=== PATIENT | female | born 1955 | race Caucasian/White ===

== ENCOUNTER 2017-01-10 11:16 | Inpatient (IN) | payer MEDICARE, SELFPAY ==
[2017-01-10] VITALS (12 sets, daily range): BP systolic 146–197; BP diastolic 69–102; PULSE 83–107; RESP 14–25; TEMP 36.9–37; O2SAT 92–97; BMI 43.5; BMI 43.6; BMI 42.3
--- NOTE | 2017-01-10 11:31 | RAD_ITS ---
STUDY: X-RAY CHEST REASON FOR EXAM: Female, 61 years old. Cough. Shortness of breath and dyspnea. TECHNIQUE: PA and lateral views of the chest. COMPARISON: Comparison is made with prior study dated November 11, 2016. FINDINGS: EKG electrodes are seen. The lungs are clear and expanded. There is no demonstrated pleural abnormality. Normal size heart. Normal mediastinum and judith. Normal visualized pulmonary arteries. There is atherosclerotic calcification of the aortic arch with tortuosity. There is demineralization of the osseous structures. Normal visualized ribs, clavicles, and shoulders. There is no demonstrated abnormality of the visualized soft tissue structures of the upper abdomen. RAD/Chest PA and Lateral IMPRESSION: No acute abnormality is seen. Electronically Signed: Tristan De La Garza MD at 12:56 EDT Tel [phone], Service support ,
--- NOTE | 2017-01-10 11:32 | EKG12_ITS ---
Test Reason : Blood Pressure : / mmHG Vent. Rate : 107 BPM Atrial Rate : 107 BPM P-R Int : 184 ms QRS Dur : 080 ms QT Int : 352 ms P-R-T Axes : 029 -25 018 degrees QTc Int : 469 ms Sinus tachycardia Otherwise normal ECG Confirmed by SAMIRA HASSAN ([id number]), supervising editor trailer MAIKEL MULLEN ([id number]) on 01/15/2017 2:18:04 PM Referred By: RADHA Confirmed By:SAMIRA HASSAN
[2017-01-10] MEDS: Ipratropium/Albuterol Sulfate 3 ML AMPUL.NEB INHALATION ×2 (11:43→19:34)
[2017-01-10] MEDS: Metoclopramide 10 MG/2 ML Vial IV (12:11)
[2017-01-10 12:22] LABS: Absolute Lymphocyte Count 2.13 X10^3/ul (0.83-4.51); Absolute Neutrophil Count 15.5 X10^3/uL (2.0-7.7); Basophil# 0.04 X10^3/uL; Basophil% 0.2 % (0-1); Eosinophil# 0.25 X10^3/uL; Eosinophils% 1.3 % (0-5); Hemoglobin 10.3 g/dl (12.0-15.0); Lymphocyte # 2.13 X10^3/ul (4.0); Lymphocyte % 10.9 % (19-41); Mean Corp Hgb Conc 30.3 g/gl (32-36); Mean Corpuscular Hgb 22.6 pg (27.0-32.0); Mean Corpuscular Volume 74.6 fL (81-99); Mean Platelet Vol. 9.3 fl (6.2-12.0); Monocyte# 1.49 X10^3/uL; Monocyte% 7.7 % (0-10); Neutrophil # 15.51 X10^3/uL (2.7-7.7); Neutrophil % 79.6 % (47-70); Platelet Count 384 K/mm3 (150-450); RBC Distribution Width CV 17.3 % (11.6-14.6); RBC Distribution Width SD 46.8 fl (35.1-43.9); Red Blood Count 4.56 M/mm3 (4.2-5.4); White Blood Count 19.5 K/mm3 (4.4-11.0)
[2017-01-10 12:24] LABS: Differential Indicated SCAN CRITERIA MET; POSITIVE COUNT NO; POSITIVE DIFFERENTIAL NO; POSITIVE MORPHOLOGY YES
[2017-01-10 12:24] LABS: Red Blood Cells-Urine 0 SEEN /hpf (0-5)
[2017-01-10 12:32] LABS: Color, Urine Yellow (Yellow); Glucose, Dipstick Normal (Normal); Ketone-Dipstick Negative (Negative); Leukocyte Esterase-Dipstick 100 /ul (Negative); Nitrite-Dipstick Negative (Negative); Occult Blood-Urine 10 /ul (Negative); Protein-Dipstick 15 mg/dl (Negative); Urine Bilirubin Dipstick Negative (Negative); Urine Clarity Sl. Cloudy (Clear); Urine Urobilinogen Normal (Normal)
[2017-01-10 12:38] LABS: ALB/GLOB Ratio 0.8 RATIO (0.9-2.4); AST(SGOT) 23 U/L (15-37); Alanine Aminotransfer ALT/SGPT 28 U/L (12-78); Albumin, Serum 3.3 g/dL (3.4-5.0); Alkaline Phosphatase 198 U/L (45-117); Anion Gap 7 (5-15); BUN 10 mg/dL (7-18); BUN/Creat Ratio 9.5 RATIO (10-20); Calcium,Total 9.1 mg/dL (8.5-10.1); Chloride 101 mmol/L (98-107); Creatinine, Serum 1.05 mg/dL (0.55-1.02); EST Glomerular Filtration Rate 56 mL/min (>60); Est Glom Filt Rate - Afr Amer 68 mL/min (>60); Estimated Creatinine Clearance 52.01 ml/min; Globulin 4.1 g/dL (2.3-3.5); Glucose 219 mg/dL (70-110); Lipase 91 U/L (73-393); Potassium 4.1 mmol/L (3.5-5.1); Protein, Total 7.4 g/dL (6.4-8.2); Sodium Level 138 mmol/L (136-145)
[2017-01-10 12:44] LABS: Lactic Acid 2.1 mmol/L (0.4-2.0)
[2017-01-10 12:49] LABS: Bacteria 2+ /hpf (None Seen); Mucous, Urine RARE /hpf (<or=2+); Squamous Epithelial Cells - UA 0-5 SEEN /hpf (5-10); White Blood Cells 0-5 SEEN /hpf (0-5)
[2017-01-10 12:57] LABS: Hypochromasia 1+; Microcytosis 2+
--- NOTE | 2017-01-10 13:33 | CT_ITS ---
STUDY: CT ABDOMEN AND PELVIS WITHOUT CONTRAST REASON FOR EXAM: Female, 61 years old. Abdominal pain. Nausea and vomiting. RADIATION DOSAGE (If Supplied By Facility): CTDIvol = ( 24.18 ) mGy, DLP = ( 1274.56 ) mGycm TECHNIQUE: Transaxial images were obtained from the dome of the diaphragm to the symphysis pubis without oral contrast, and without intravenous contrast. Sagittal and coronal images were reconstructed. Individualized dose optimization techniques were used for this CT. COMPARISON: Comparison is made with prior study dated November 13, 2015. FINDINGS: The visualized lung bases are unremarkable. Coronary artery calcification. There is decreased attenuation of the liver consistent with steatosis. The gallbladder is not visualized most likely secondary to prior cholecystectomy. Normal spleen. Normal pancreas. Normal bilateral adrenal glands. Normal right kidney. Normal left kidney. Normal visualized stomach. Normal small intestine. Mild degree of circumferential wall thickening with increased markings in the descending colon just proximal to the rectosigmoid colon. This may represent localized colitis. There is non-visualization of the appendix. Normal abdominal aorta. Normal inferior vena cava. Normal retroperitoneum. Normal urinary bladder. Normal abdominal wall. There are degenerative changes of the visualized lumbar spine. CT/Abdomen/Pelvis without Cont IMPRESSION: Mild degree of circumferential wall thickening and increased markings in the surrounding peritoneal fat involving the distal descending colon and proximal rectosigmoid colon. Scattered sigmoid diverticula are also seen. Electronically Signed: Tristan De La Garza MD at 14:40 EDT Tel [phone], Service support ,
[2017-01-10] MEDS: Ondansetron 4 MG/2 ML Vial IV (14:01)
--- NOTE | 2017-01-10 15:45 | HP.PCM_ITS ---
Problem List (1) Benign essential HTN Status: Chronic (2) CVA (cerebral vascular accident) Status: Chronic Qualifiers: CVA mechanism: unspecified Qualified Code(s): I63.9 - Cerebral infarction, unspecified (3) DM2 (diabetes mellitus, type 2) Status: Chronic Qualifiers: Diabetes mellitus complication status: with kidney complications Diabetes mellitus complication detail: with microalbuminuria Diabetes mellitus intermediate project manager insulin use: with fci use Qualified Code(s): E11.29 - Type 2 diabetes mellitus with other diabetic kidney complication; R80.9 - Proteinuria, unspecified; Z79.4 - FCI (current) use of insulin (4) Diabetes mellitus Status: Chronic Qualifiers: Diabetes mellitus type: type 2 Diabetes mellitus complication detail: with polyneuropathy Qualified Code(s): E11.42 - Type 2 diabetes mellitus with diabetic polyneuropathy (5) FCHL (familial combined hyperlipidemia) Status: Chronic (6) HLD (hyperlipidemia) Status: Chronic Qualifiers: Hyperlipidemia type: unspecified Qualified Code(s): E78.5 - Hyperlipidemia , unspecified (7) Migraine headache Status: Chronic Qualifiers: Migraine type: with aura Status migrainosus presence: without status migrainosus Intractability: not intractable Qualified Code(s): G43.109 - Migraine with aura, not intractable, without status migrainosus (8) Pulmonary embolism Status: Chronic Qualifiers: Chronicity: unspecified Acute cor pulmonale presence: without acute cor pulmonale (9) Restless leg Status: Chronic (10) Morbid obesity with BMI of 40.0-44.9, adult Status: Chronic (11) Depression Status: Chronic Qualifiers: Depression Type: unspecified Qualified Code(s): F32.9 - Major depressive disorder, single episode, unspecified History of Present Illness Date of Admission: 01/10/17 Chief Complaint: Abdominal cramping, pain, N/V The patient is a 61 y/o w/ PMHx: HTN, HLD, Morbid obesity, Migraines, RLS, Diabetes mellitus type II, History of cyclical N/V, Takotsubo's Cardiomyopathy who presents to the [facility] ED on 01/10/17 w/ ongoing abdominal discomfort with cramping abdominal pain in addition to nausea and emesis with inability to maintain appropriate p.o. intake ?48 hours in addition to mild cough, nonproductive with subjective chills, no fever with recent ill contacts with similar presentation. Emergency room patient is afebrile, heart rate 80-90, BP 160-170 over 70s, respiratory rate 18, 97% on room air, with WBC 19.5, hemoglobin 10.3, platelet 384 with left shift, CMP with BUN/Creat 10/1.05, glucose 219, LA 2.1, Alk phos 198, UA unremarkable, CXR with chronic changes, CT A/P w/ mild degree circumferential wall thickening and increased markings in the surrounding peritoneal fat involving the distal descending colon and proximal rectosigmoid colon with scattered sigmoid diverticula seen. The emergency room patient was administered normal saline, Zosyn, Reglan and albuterol ?1. Past Medical History Past Medical History (Chronic Problems): Chronic Problems Depression (Chronic) Morbid obesity with BMI of 40.0-44.9, adult (Chronic) Benign essential HTN (Chronic) CVA (cerebral vascular accident) (Chronic) DM2 (diabetes mellitus, type 2) (Chronic) Diabetes mellitus (Chronic) FCHL (familial combined hyperlipidemia) (Chronic) HLD (hyperlipidemia) (Chronic) Migraine headache (Chronic) Pulmonary embolism (Chronic) Restless leg (Chronic) Allergies ciprofloxacin [From Cipro] Allergy (Verified 07/29/16 13:59) Shortness of breath ciprofloxacin HCl [From Cipro] Allergy (Verified 07/29/16 13:59) Shortness of breath cyclobenzaprine HCl [From Flexeril] Allergy (Verified 07/29/16 13:59) Rash ketorolac tromethamine [From Toradol] Allergy (Verified 07/29/16 13:59) Chest tightness sulfamethoxazole [From Bactrim] Allergy (Verified 07/29/16 13:59) Itching trimethoprim [From Bactrim] Allergy (Verified 07/29/16 13:59) Itching valacyclovir HCl [From Valtrex] Adverse Reaction (Verified 07/29/16 13:59) Other Home Medications: Ambulatory Orders Medication Instructions Recorded Allopurinol [Zyloprim] 100 mg PO DAILYCM 05/07/16 Aspirin [Aspirin, Baby] 81 mg PO DAILY 05/07/16 Hydrocodone Bitart/Apap 5-325 1 tablet PO 4X/DAY PRN 05/07/16 [[place] 5MG-325MG] Lamotrigine 100 mg PO BID 05/07/16 Montelukast [Singulair] 10 mg PO DAILY 05/07/16 MorphINE [MS Contin] 15 mg PO BID 05/07/16 Olmesartan Medoxomil [Benicar] 20 mg PO DAILY 05/07/16 Omeprazole [Prilosec] 40 mg PO DAILY 05/07/16 Pregabalin [Lyrica] 150 mg PO BID 05/07/16 Rivaroxaban [Xarelto] 20 mg PO DAILY 05/07/16 Ropinirole HCl [Requip] 1 mg PO QHS 05/07/16 Simvastatin [Zocor] 40 mg PO QHS 05/07/16 Albuterol Inhaler [Ventolin Hfa] 1 - 2 puff INHALATION Q4H PRN PRN 05/14/16 #1 inhaler Ondansetron [Zofran Odt] 4 mg PO Q8H PRN PRN #10 tablet 05/17/16 Benzonatate [Tessalon Perle] 200 mg PO TID PRN PRN #20 capsule 07/29/16 ProMETHAzine [Phenergan] 25 mg PO Q6H PRN PRN #10 tablet 07/29/16 Metoclopramide [Reglan] 10 mg PO TID 11/11/16 Insulin Degludec [Tresiba 120 units SQ DAILY 01/10/17 Flextouch U-200] Insulin Lispro [Humalog Kwikpen] 30 - 40 unit SQ ACHS 01/10/17 Surgical History: appendectomy, cholecystectomy Psychiatric History: Depression PARTNERSHIP MANAGER History: No pertinent PARTNERSHIP MANAGER history Lives: Alone Smoking Status: Never smoker Tobacco Use: Non-smoker Alcohol: None Drugs: None - *Family History Paternal History Items: Heart Disease Maternal History Items: COPD, Diabetes, No pertinent history Review of Systems Constitutional: Reports: Anorexia, Chills, Malaise, Weakness, Fatigue. Denies: Fever, Weight Change HEENT: Reports: Sore Throat. Denies: Head Aches, Sinus Congestion, Sinus Drainage Cardiovascular: Denies: Chest Pain, Palpitations Respiratory: Reports: Cough. Denies: Shortness of breath at rest, Sputum production Gastrointestinal: Reports: Abdominal Pain, Nausea, Vomiting Genitourinary: Denies: Dysuria Musculoskeletal: Denies: Joint Pain, Joint Tenderness Skin: Denies: Rash, Wounds Neurological: Denies: Numbness, Tingling, Focal weakness Psychiatric: Denies: Anxiety, Depression, Homicidal Ideations, Suicidal Ideations Hematologic/ Lymphatic: Denies: Easy Bruising, Easy Bleeding VTE Information - Inpt Only VTE Present on Admission: No VTE Mechan Device Prophylaxis: SCD's VTE Pharm Prophylaxis ordered?: No Reason prophylaxis not ordered:: Treatment Not Indicated Subjective: Seated upright in the ED bed, fatigued, NAD. Objective: Physical Examination: General: awake, alert, oriented x 3 and cooperative, seated upright in ED bed in no apparent distress. Skin: normal color, turgor, no icterus, cyanosis. HEENT: AT/NC, EOMI, PERRLA, alfreda MM, no carotid bruits or JVD noted. Lungs: CTA bilaterally, moderate effort, moderate decrease BL bases, no rales, ronchi or wheezing. Heart: Regular rate and rhythm; no gallop, rub audible. Abdomen: soft, morbidly obese, notes mild generalized TTP with deep palpation, ND, mildly hyperactive BS, no HSM but habitus makes examination difficult. Extremities: no cyanosis, clubbing, or edema. Neurological: patient awake, alert, oriented x 3; cognitive function intact; pupils equally reactive to light and accomodation; cranial nerves II-XII grossly normal, moving all 4 extremities, no focal deficits, strength moderately globally decreased. Psychiatric: affect appears fatigued, no acute evidence of depressive or anxiety feelings. - Physical Exam Vital Signs Temp Pulse Resp BP Pulse Ox 98.5 F 99 20 181/81 92 01/10/17 11:18 01/10/17 14:05 01/10/17 14:05 01/10/17 14:05 01/10/17 14:05 Oxygen Delivery Method Room Air Weight: 270 lb Body Mass Index (BMI) 43.5 Laboratory Tests Past 24 Hrs 01/10/17 01/10/17 01/10/17 12:02 12:02 12:02 WBC 19.5 H RBC 4.56 Hgb 10.3 L Hct 34.0 L MCV 74.6 L MCH 22.6 L MCHC 30.3 L RDW 17.3 H RDW Differential 46.8 H Plt Count 384 MPV 9.3 Immature Gran % (Auto) 0.300 Neut % (Auto) 79.6 H Lymph % (Auto) 10.9 L [place] % (Auto) 7.7 Eos % (Auto) 1.3 Baso % (Auto) 0.2 Absolute Neuts (auto) 15.5 H Absolute Lymphs (auto) 2.13 Total Counted Not Reportable Hypochromasia 1+ Microcytosis 2+ Sodium 138 Potassium 4.1 Chloride 101 Carbon Dioxide 30.0 Anion Gap 7 BUN 10 Creatinine 1.05 H Estim Creat Clear Calc 52.01 Est GFR (MDRD) Af Amer 68 Est GFR (MDRD) Non-Af 56 L BUN/Creatinine Ratio 9.5 L Glucose 219 H Lactic Acid 2.1 H Calcium 9.1 Total Bilirubin 1.00 AST 23 ALT 28 Alkaline Phosphatase 198 H Troponin I < 0.02 Total Protein 7.4 Albumin 3.3 L Globulin 4.1 H Albumin/Globulin Ratio 0.8 L Lipase 91 Urine Color Urine Clarity Urine pH Ur Specific Malcolm Urine Protein Urine Glucose (UA) Urine Ketones Urine Occult Blood Urine Nitrite Urine Bilirubin Urine Urobilinogen Ur Leukocyte Esterase Urine RBC Urine WBC Ur Squamous Epith Cells Urine Bacteria Urine Mucus 01/10/17 12:20 WBC RBC Hgb Hct MCV MCH MCHC RDW RDW Differential Plt Count MPV Immature Gran % (Auto) Neut % (Auto) Lymph % (Auto) [place] % (Auto) Eos % (Auto) Baso % (Auto) Absolute Neuts (auto) Absolute Lymphs (auto) Total Counted Hypochromasia Microcytosis Sodium Potassium Chloride Carbon Dioxide Anion Gap BUN Creatinine Estim Creat Clear Calc Est GFR (MDRD) Af Amer Est GFR (MDRD) Non-Af BUN/Creatinine Ratio Glucose Lactic Acid Calcium Total Bilirubin AST ALT Alkaline Phosphatase Troponin I Total Protein Albumin Globulin Albumin/Globulin Ratio Lipase Urine Color Yellow Urine Clarity Sl. Cloudy Urine pH 6.0 Ur Specific Malcolm 1.010 Urine Protein 15 H Urine Glucose (UA) Normal Urine Ketones Negative Urine Occult Blood 10 H Urine Nitrite Negative Urine Bilirubin Negative Urine Urobilinogen Normal Ur Leukocyte Esterase 100 H Urine RBC 0 SEEN Urine WBC 0-5 SEEN Ur Squamous Epith Cells 0-5 SEEN Urine Bacteria 2+ Urine Mucus RARE Assessment/Plan The patient is a 61 y/o w/ PMHx: HTN, HLD, Morbid obesity, Migraines, RLS, Diabetes mellitus type II, History of cyclical N/V, Takotsubo's Cardiomyopathy who presents to the [facility] ED on 01/10/17 w/ ongoing abdominal discomfort with cramping abdominal pain in addition to nausea and emesis with inability to maintain appropriate p.o. intake ?48 hours in addition to mild cough, nonproductive with subjective chills, no fever with recent ill contacts with similar presentation. (1) Acute Colitis, N/V/Viral SXS: CT A/P w/ evidence of colitis. Admission CBC w / WBC 19.5 w/ L shift, afebrile in the ED, LA 2.1. Will admit to [facility], maintain on hydration, monitor I&Os, maintain NPO status w/ bowel rest, treat with zosyn regimen, IV protonix, anti-emetics, pain regimen PRN. Consider diet advancement to clears in AM if clinically improved. Respiratory panel pending. Duonebs, Albuterol PRN, HOB, IS. (3) Takotsubo's Cardiomyopathy: Continue on home regimen xarelto, losartan, previously was on coreg, currently no listed on home regimen. (4) PAF: Maintained on amiodarone, coreg dose which she was on prior not listed in current regimen. (5) Diabetes mellitus type II: Continue home insulin regimen, NPO status, q 6h accu checks w/ ISS. (6) Hypertension: Continue home regimen losartan, PRN hydralazine. (7) Hyperlipidemia: Continue statin regimen. (9) Morbid Obesity: Weight loss and lifestyle changes encouraged. (10) Chronic pain syndrome: Continue home elavil, morphine regimen. (11) DVT Prophylaxis: SCDs, xarelto.
--- NOTE | 2017-01-10 17:11 | EDS_ITS ---
DATE OF SERVICE: 01/10/2017 CHIEF COMPLAINT: Nausea and vomiting. HISTORY OF CHIEF COMPLAINT: A 61-year-old female with nausea and vomiting. Symptoms started yesterday. Also started coughing yesterday. She denies any fever. Denies any diarrhea. Denies any blood in her stool or black tarry stool. PAST MEDICAL HISTORY: Significant for prior PR, GERD, diabetes, hypertension, high cholesterol. SURGICAL HISTORY: Includes cholecystectomy and left knee surgery. PRIMARY CARE PHYSICIAN: Devan Parks M.D. ALLERGIES: CIPRO. SOCIAL HISTORY: She does not smoke or drink alcohol. Denies any illicit drug use. PHYSICAL EXAMINATION: VITAL SIGNS: Blood pressure 184/41, temperature 98.7, heart rate 107, respirations 25, pulse ox 94. GENERAL APPEARANCE: She is awake, alert, in no acute distress. Nontoxic appearing. HEENT: She is normocephalic, atraumatic. Pupils equal, react to light. TMs are clear. NECK: Supple. Mucous membranes slightly dry. CARDIOVASCULAR: Heart is regular, slightly tachycardic. No murmurs. LUNGS: Clear. ABDOMEN: Soft. She has got some mild diffuse tenderness. There is no rebound, rigidity or peritoneal signs. No masses palpated. EXTREMITIES: Intact x4. Muscle strength +5/5. Exam otherwise unremarkable. EMERGENCY DEPARTMENT COURSE: An IV line was established. EKG obtained showed a sinus rhythm with a rate of 107. CBC with diff showed an elevated white count of 19,000, hemoglobin 10, hematocrit 34, platelets 384. Chemistries unremarkable. Alkaline phosphatase was normal. LFTs normal. Lipase normal. Troponin less than 0.02. Lactate was minimally elevated at 2.1. CT scan without contrast of the abdomen and pelvis showed some inflammatory changes in the left side of the colon into the sigmoid colon, question of colitis. The patient was started on Zosyn IV. She was given Reglan and Zofran. The patient will be admitted. We will discuss with hospitalist. DIAGNOSES: Abdominal pain, colitis, dehydration. DISPOSITION: The patient admitted in stable condition. Robe Root DO T: ANDREW JOB: [id number]
[2017-01-10] MEDS: BENZOCAINE/MENTHOL 1 LOZENGE MUCOUS MEM (18:40)
[2017-01-10 18:55] LABS: Lactic Acid 2.8 mmol/L (0.4-2.0)
[2017-01-10 20:05] LABS: Bedside Glucose 260 mg/dL (70-110)
[2017-01-10] MEDS: 0.9% Normal Saline 1,000 ML 999 ML IV (20:40)
[2017-01-10] MEDS: 0.9% Normal Saline 1,000 ML 125 ML IV (21:54)
[2017-01-10] MEDS: lamoTRIgine 100 MG Tablet PO (21:55)
[2017-01-10] MEDS: Atorvastatin Calcium 20 MG Tablet PO (21:56)
[2017-01-10] MEDS: Pregabalin 75 MG Capsule 150 MG PO (21:56)
[2017-01-10] MEDS: Pramipexole Di-HCl 0.5 MG Tablet PO (21:57)
[2017-01-10] MEDS: Metoclopramide 10 MG/2 ML Vial 5 MG IV (21:58)
[2017-01-10 23:15] LABS: Lactic Acid 2.6 mmol/L (0.4-2.0)
[2017-01-11] VITALS (12 sets, daily range): BP systolic 122–169; BP diastolic 61–83; PULSE 68–98; RESP 16–20; TEMP 36.5–37.6; O2SAT 92–98
[2017-01-11 00:14] LABS: Bedside Glucose 293 mg/dL (70-110)
[2017-01-11] MEDS: Albuterol 2.5 MG/3 ML VIAL.NEB. INHALATION ×2 (03:54→13:28)
[2017-01-11] MEDS: guaiFENesin Dm 10 ML UDC 5 ML PO ×3 (05:42→22:35)
[2017-01-11] MEDS: oxyCODONE 5 MG Tablet PO (05:42)
[2017-01-11] MEDS: 0.9% Normal Saline 1,000 ML 125 ML IV ×2 (05:42→13:00)
[2017-01-11] MEDS: Metoclopramide 10 MG/2 ML Vial 5 MG IV ×3 (05:45→22:35)
[2017-01-11 05:55] LABS: Bedside Glucose 225 mg/dL (70-110)
[2017-01-11] MEDS: Ipratropium/Albuterol Sulfate 3 ML AMPUL.NEB INHALATION ×2 (07:36→19:16)
[2017-01-11 07:50] LABS: Absolute Lymphocyte Count 1.61 X10^3/ul (0.83-4.51); Absolute Neutrophil Count 12.7 X10^3/uL (2.0-7.7); Basophil# 0.02 X10^3/uL; Basophil% 0.1 % (0-1); Eosinophil# 0.11 X10^3/uL; Eosinophils% 0.7 % (0-5); Hematocrit 27.8 % (37-47); Hemoglobin 8.7 g/dl (12.0-15.0); Lymphocyte # 1.61 X10^3/ul (4.0); Lymphocyte % 10.1 % (19-41); Mean Corp Hgb Conc 31.3 g/gl (32-36); Mean Corpuscular Hgb 23.2 pg (27.0-32.0); Mean Corpuscular Volume 74.1 fL (81-99); Mean Platelet Vol. 9.6 fl (6.2-12.0); Monocyte# 1.47 X10^3/uL; Monocyte% 9.2 % (0-10); Neutrophil # 12.66 X10^3/uL (2.7-7.7); Neutrophil % 79.5 % (47-70); Platelet Count 340 K/mm3 (150-450); RBC Distribution Width CV 17.8 % (11.6-14.6); RBC Distribution Width SD 46.2 fl (35.1-43.9); Red Blood Count 3.75 M/mm3 (4.2-5.4); White Blood Count 15.9 K/mm3 (4.4-11.0)
[2017-01-11 07:51] LABS: POSITIVE COUNT NO; POSITIVE DIFFERENTIAL NO; POSITIVE MORPHOLOGY NO
[2017-01-11 08:05] LABS: Anion Gap 9 (5-15); BUN 10 mg/dL (7-18); Calcium,Total 8.2 mg/dL (8.5-10.1); Chloride 102 mmol/L (98-107); EST Glomerular Filtration Rate 60 mL/min (>60); Est Glom Filt Rate - Afr Amer 72 mL/min (>60); Estimated Creatinine Clearance 54.61 ml/min; Glucose 182 mg/dL (70-110); Potassium 4.1 mmol/L (3.5-5.1); Sodium Level 138 mmol/L (136-145)
[2017-01-11 08:07] LABS: Lactic Acid 1.4 mmol/L (0.4-2.0)
[2017-01-11] MEDS: Allopurinol 100 MG Tablet PO (08:25)
[2017-01-11] MEDS: Pregabalin 75 MG Capsule 150 MG PO ×2 (10:50→22:34)
[2017-01-11] MEDS: lamoTRIgine 100 MG Tablet PO ×2 (10:50→22:34)
[2017-01-11] MEDS: Losartan Potassium 50 MG Tablet PO (10:50)
[2017-01-11] MEDS: Rivaroxaban 20 MG Tablet PO (10:51)
[2017-01-11] MEDS: Acetaminophen 325 MG Tablet 650 MG PO ×2 (10:51→22:42)
--- NOTE | 2017-01-11 10:54 | CASEMGMT ---
weight trainer completed. Discharge Plan: Home with no anticipated needs. Emerald Edwards, RN, BSN, CM
[2017-01-11 11:56] LABS: Bedside Glucose 188 mg/dL (70-110)
[2017-01-11] MEDS: 0.9% NaCl Peripheral Flush Adult/Peds IV (14:02)
--- NOTE | 2017-01-11 16:11 | PN_ITS ---
Subjective: This is a 61-year-old female who was admitted for evaluation of abdominal pain associated with nausea, vomiting, poor p.o. intake, dehydration. CT scan of the abdomen showed mild degree circumferential wall thickening and increased markings the surrounding peritoneal fat involving the distal descending colon and proximal rectosigmoid colon with scattered sigmoid diverticula. Initial lactic acid was 2.8, then 2.6, normalized to 1.4 in 12 hours. Patient was started on Zosyn. Objective: Alert and oriented x3 Comfortable. No distress. Skin is warm and dry. Oral mucosa dry. No jaundice, rash. Head AT/NC. PERRLA. Neck supple. No JVD. Lungs diminished bilaterally. Heart: RRR, S1/S2 normal. No rubs, murmurs appreciated. Peripheral pulses are normal. Abdomen soft, mildly tender over the lower abdomen, not distended. BS are normal. Liver, spleen not palpated. No CVA tenderness. No lower extremity edema. No focal neurological findings. . Vitals/I&O's: Vital Signs Temp Pulse Resp BP Pulse Ox 36.5 C 79 18 122/61 94 01/11/17 14:07 01/11/17 14:07 01/11/17 14:07 01/11/17 14:07 01/11/17 14:07 Oxygen Delivery Method Room Air Weight: 118.8 kg Body Mass Index (BMI) 42.3 Intake and Output for Last 24 Hours 01/09/17 01/10/17 01/11/17 23:59 23:59 23:59 Intake Total 3366 Balance 3366 Laboratory Results 01/10/17 18:13: Magnesium 2.0 01/10/17 18:13: Lactic Acid 2.8 H 01/10/17 18:32: POC Glucose 260 H 01/10/17 22:25: Lactic Acid 2.6 H 01/10/17 23:54: POC Glucose 293 H 01/11/17 05:32: POC Glucose 225 H 01/11/17 07:35: WBC 15.9 H, RBC 3.75 L, Hgb 8.7 L, Hct 27.8 L, MCV 74.1 L, MCH 23.2 L, MCHC 31.3 L, RDW 17.8 H, RDW Differential 46.2 H, Plt Count 340, MPV 9.6 , Immature Gran % (Auto) 0.400, Neut % (Auto) 79.5 H, Lymph % (Auto) 10.1 L, [place] % (Auto) 9.2, Eos % (Auto) 0.7, Baso % (Auto) 0.1, Absolute Neuts (auto) 12.7 H, Absolute Lymphs (auto) 1.61, Total Counted Not Reportable 01/11/17 07:35: Sodium 138, Potassium 4.1, Chloride 102, Carbon Dioxide 27.0, Anion Gap 9, BUN 10, Creatinine 1.00, Estim Creat Clear Calc 54.61, Est GFR ( MDRD) Af Amer 72, Est GFR (MDRD) Non-Af 60, BUN/Creatinine Ratio 10.0, Glucose 182 H, Calcium 8.2 L 01/11/17 07:35: Lactic Acid 1.4 01/11/17 11:43: POC Glucose 188 H Current Medications Acetaminophen (Tylenol) 650 mg PO Q6H PRN PRN PRN Reason: Mild Pain (scale 0-3)/T>100.7 Last Admin: 01/11/17 10:51 Dose: 650 mg Albuterol Sulfate (Ventolin Aerosols) 2.5 mg INHALATION Q2H PRN PRN PRN Reason: dyspnea, wheezing Last Admin: 01/11/17 13:28 Dose: 2.5 mg Albuterol/Ipratropium (Duoneb) 3 ml INHALATION Q6HWA.RT [facility] Last Admin: 01/11/17 07:36 Dose: 3 ml Allopurinol (Zyloprim) 100 mg PO DAILYCM [facility] Last Admin: 01/11/17 08:25 Dose: 100 mg Atorvastatin Calcium (Lipitor) 20 mg PO QHS [facility] Last Admin: 01/10/17 21:56 Dose: 20 mg Dextrose (D50w Syringe) 0 gm IV X1 PRN; Protocol PRN Reason: Hypoglycemia Glucagon () 1 mg IM .X1 PRN PRN Reason: Hypoglycemia Guaifenesin (Robitussin Dm) 5 ml PO Q6H PRN PRN PRN Reason: COUGH Last Admin: 01/11/17 14:02 Dose: 5 ml Hydralazine HCl (Apresoline) 10 mg IV Q4H PRN PRN PRN Reason: SBP > 160 Sodium Chloride () 1,000 mls @ 125 mls/hr IV .Q8H [facility] Last Admin: 01/11/17 13:00 Dose: 125 mls/hr Pantoprazole Sodium 40 mg/ (Sodium Chloride) 110 mls @ 330 mls/hr IV Q12 [facility] Last Admin: 01/11/17 10:51 Dose: 330 mls/hr Piperacillin Sod/Tazobactam (Sod 4.5 gm/ N/A) 100 mls @ 200 mls/hr IV Q6 [facility] Last Admin: 01/11/17 13:00 Dose: 200 mls/hr Insulin Aspart (Novolog Flexpen ([facility])) 0 units SC Q6 [facility] PRN Reason: Protocol Last Admin: 01/11/17 11:51 Dose: 2 u Insulin Detemir (Levemir ([facility])) 40 units SC BID [facility] Last Admin: 01/11/17 10:50 Dose: 40 u Lamotrigine (Lamictal) 100 mg PO BID [facility] Last Admin: 01/11/17 10:50 Dose: 100 mg Losartan Potassium (Cozaar) 50 mg PO DAILY [facility] Last Admin: 01/11/17 10:50 Dose: 50 mg Metoclopramide HCl (Reglan) 5 mg IV Q8 [facility] Last Admin: 01/11/17 14:03 Dose: 5 mg Morphine Sulfate (Morphine) 2 - 4 mg IV Q3H PRN PRN PRN Reason: Severe Pain (pain scale 6-10) Morphine Sulfate (Morphine) 1 - 2 mg IV Q4H PRN PRN PRN Reason: Moderate Pain (pain scale 4-5) Morphine Sulfate (Ms Contin) 15 mg PO BID [facility] Last Admin: 01/11/17 10:55 Dose: 15 mg Ondansetron HCl (Zofran) 4 mg IV Q8H PRN PRN PRN Reason: Nausea Oxycodone HCl (Oxyir) 5 mg PO Q4H PRN PRN PRN Reason: Moderate Pain (pain scale 4-5) Last Admin: 01/11/17 05:42 Dose: 5 mg Phenol/Menthol (Chloraseptic (Bkc)) 2 spray MUCOUS MEM Q4H PRN Pramipexole Dihydrochloride (Mirapex) 0.5 mg PO QHS [facility] Last Admin: 01/10/17 21:57 Dose: 0.5 mg Pregabalin (Lyrica) 150 mg PO BID [facility] Last Admin: 01/11/17 10:50 Dose: 150 mg Promethazine HCl (Phenergan (Ll)) 6.25 mg IV Q4H PRN PRN PRN Reason: NAUSEA/VOMITING Rivaroxaban (Xarelto) 20 mg PO DAILY [facility] Last Admin: 01/11/17 10:51 Dose: 20 mg Sodium Chloride () 5 - 15 ml IV UD PRN PRN Reason: SALINE FLUSH Last Admin: 01/11/17 14:02 Dose: 10 ml Throat Lozenges (Cepacol Sore Throat Lozenge) 1 lozenge MUCOUS MEM Q2H PRN PRN PRN Reason: SORE THROAT Last Admin: 01/10/17 18:40 Dose: 1 lozenge Assessment/Plan This is a 61-year-old female, admitted for evaluation of abdominal pain, nausea , vomiting. She has no personal history of colitis, but her mother and her son have Crohn's colitis. She also reports mild cough, recent sick contacts. #1. Acute colitis. Viral or ischemic etiology. Less likely Crohn's disease, but can be considered if no improvement with antibiotics. No diarrhea to suspect C. difficile infection. -Continue on Zosyn -Continue on IV fluids, start clear liquids, gradually advance as tolerated. -Symptomatic treatment with antiemetics #2. Upper respiratory tract infection. Chest x-ray is negative for infiltrate , no wheezing. Symptomatic management. #3. Takotsubo cardiomyopathy. Clinically compensated. Continue Xarelto, losartan. Currently she is on no beta-blockers. #4. Paroxysmal atrial fibrillation. Rate controlled. Currently is on amiodarone. #5. DM type II. Continue home insulin regimen, Accu-Cheks, insulin sliding scale #6. Hypertension. Controlled. Continue losartan #7. Hyperlipidemia. Continue statin #8. Chronic pain syndrome. Continue home Elavil. #9. DVT prophylaxis. On Xarelto.
--- NOTE | 2017-01-11 16:24 | CHAPLAIN ---
patient is in isolation and describes how she feels; pt has a supportive sister and stepson; pt tells me that she is grieving the loss of her in June; pt had dealt with spouse illness over last months of his life; pt is connected to a adventist; pt is learning how to cope with her loss she says; pt is welcoming of prayer
[2017-01-11 18:25] LABS: Bedside Glucose 219 mg/dL (70-110)
[2017-01-11] MEDS: Atorvastatin Calcium 20 MG Tablet PO (22:34)
[2017-01-11] MEDS: Pramipexole Di-HCl 0.5 MG Tablet PO (22:34)
[2017-01-11 23:06] LABS: Bedside Glucose 178 mg/dL (70-110)
[2017-01-12] VITALS (14 sets, daily range): BP systolic 113–155; BP diastolic 44–98; PULSE 66–86; RESP 16–20; TEMP 36.6–37.2; O2SAT 93–97
[2017-01-12] MEDS: 0.9% Normal Saline 1,000 ML 125 ML IV (02:23)
[2017-01-12] MEDS: oxyCODONE 5 MG Tablet PO ×2 (03:08→14:52)
[2017-01-12] MEDS: Metoclopramide 10 MG/2 ML Vial 5 MG IV ×3 (06:10→22:13)
[2017-01-12 06:22] LABS: Bedside Glucose 53 mg/dL (70-110)
[2017-01-12] MEDS: guaiFENesin Dm 10 ML UDC 5 ML PO ×2 (06:58→18:30)
[2017-01-12 07:02] LABS: Bedside Glucose 97 mg/dL (70-110)
[2017-01-12] MEDS: Ipratropium/Albuterol Sulfate 3 ML AMPUL.NEB INHALATION ×3 (07:10→19:07)
[2017-01-12 07:14] LABS: Absolute Lymphocyte Count 2.06 X10^3/ul (0.83-4.51); Absolute Neutrophil Count 9.6 X10^3/uL (2.0-7.7); Basophil# 0.05 X10^3/uL; Basophil% 0.4 % (0-1); Eosinophil# 0.61 X10^3/uL; Eosinophils% 4.4 % (0-5); Hematocrit 30.2 % (37-47); Hemoglobin 9.1 g/dl (12.0-15.0); Lymphocyte # 2.06 X10^3/ul (4.0); Lymphocyte % 14.9 % (19-41); Mean Corp Hgb Conc 30.1 g/gl (32-36); Mean Corpuscular Hgb 22.8 pg (27.0-32.0); Mean Corpuscular Volume 75.7 fL (81-99); Monocyte# 1.49 X10^3/uL; Monocyte% 10.8 % (0-10); Neutrophil % 69.2 % (47-70); Platelet Count 409 K/mm3 (150-450); RBC Distribution Width CV 18.1 % (11.6-14.6); RBC Distribution Width SD 47.6 fl (35.1-43.9); Red Blood Count 3.99 M/mm3 (4.2-5.4); White Blood Count 13.9 K/mm3 (4.4-11.0)
[2017-01-12 07:19] LABS: POSITIVE COUNT NO; POSITIVE DIFFERENTIAL NO; POSITIVE MORPHOLOGY NO
[2017-01-12 07:26] LABS: Anion Gap 6 (5-15); BUN 8 mg/dL (7-18); BUN/Creat Ratio 7.8 RATIO (10-20); Calcium,Total 8.2 mg/dL (8.5-10.1); Chloride 108 mmol/L (98-107); Creatinine, Serum 1.02 mg/dL (0.55-1.02); EST Glomerular Filtration Rate 58 mL/min (>60); Est Glom Filt Rate - Afr Amer 71 mL/min (>60); Estimated Creatinine Clearance 53.53 ml/min; Glucose 56 mg/dL (70-110); Potassium 3.7 mmol/L (3.5-5.1); Sodium Level 142 mmol/L (136-145)
[2017-01-12] MEDS: Allopurinol 100 MG Tablet PO (09:00)
[2017-01-12] MEDS: Losartan Potassium 50 MG Tablet PO (09:15)
[2017-01-12] MEDS: Pregabalin 75 MG Capsule 150 MG PO ×2 (10:59→22:15)
[2017-01-12] MEDS: lamoTRIgine 100 MG Tablet PO ×2 (10:59→22:11)
[2017-01-12] MEDS: Acetaminophen 325 MG Tablet 650 MG PO ×2 (10:59→22:13)
[2017-01-12] MEDS: Rivaroxaban 20 MG Tablet PO (10:59)
[2017-01-12 12:26] LABS: Bedside Glucose 160 mg/dL (70-110)
--- NOTE | 2017-01-12 14:21 | PCM.PROGNOTE ---
Subjective: Guera fofana #3 Patient is a 61-year-old female who presented to the emergency room on 01/10 complaining of nausea, vomiting, left lower quadrant abdominal pain which had been present for 48 hours. She also complained of a mild cough which was nonproductive and subjective chills. She had recent contact with other people with the same symptoms. She has not had a bowel movement since admission. Respiratory panel was positive for rhinovirus. CT scan of the abdomen and pelvis showed diverticulosis and a mild degree of circumferential wall thickening and increased markings in the surrounding peritoneal fat involving the distal descending colon and proximal rectosigmoid colon. She had one temp of 99.6 but otherwise has been afebrile. Vital signs are stable. She is 94% saturated on room air today. Oral intake today is 1340. White blood cell count was 19.5 at admission and today is 13.9. Lactic acid was elevated at admission. The left shift has resolved. Hemoglobin today is 9.1 with an MCV of 75.7 and RDW of 18.1. She has microcytosis and hypochromasia. She denies any emesis. The left lower quadrant pain has improved significantly since admission. No diarrhea. She does state she was constipated prior to admission. Her this past June or July and she has not been eating well. She has lost some weight. She had a colonoscopy 4 years ago and denies any history of polyps or tumors. She continues to have a cough which was mostly dry. The cough kept her up last night. Echocardiogram in October 2015 showed a 60% ejection fraction. She states that she is on Xarelto for a history of pulmonary embolus but she has been on this for a few years. She states that she has not had recurrent DVT or VTE. Past medical history is significant for hypertension, CVA, diabetes mellitus type 2, hyperlipidemia, migraine cephalgia, pulmonary embolus, restless leg syndrome, depression and morbid obesity. - Physical Exam General: Alert, Oriented x3, Cooperative, No apparent distress HEENT: Atraumatic, PERRLA, EOMI Oral: Moist Mucosa Neck: Supple, Trachea Midline Lungs: No rales, Rhonchi Cardiovascular: Regular rate, Regular Rhythm, Normal S1, Normal S2, No rub noted, No Gallop Abdomen: Bowel Sounds Present, Soft, Non-Distended, Obese, Tender - minimal in the LLQ with no guarding Extremities: No clubbing, No cyanosis, No edema, No Calf Tenderness Skin: No rashes, No breakdown Neurological: Cranial nerves II-XII grossly intact, Neuro grossly intact Psych/Mental Status: Appropriate, Flat Affect Vital Signs Temp Pulse Resp BP Pulse Ox 98.2 F 68 18 130/62 94 01/12/17 12:23 01/12/17 13:27 01/12/17 13:27 01/12/17 12:23 01/12/17 12:23 Oxygen Delivery Method Room Air Weight: 261 lb 14.546 oz Body Mass Index (BMI) 42.3 Intake and Output for Last 24 Hours 01/10/17 01/11/17 01/12/17 23:59 23:59 23:59 Intake Total 4779 2473 Output Total 1350 1950 Balance 3429 523 Microbiology Past 72 Hours 01/10/17 17:35 Respiratory Panel (PCR) - Final Mucosa - Nose Rhinovirus 01/10/17 18:09 Urine Culture - Final Urine, Clean Catch Mixed Gram Pos & Gram Neg Org Laboratory Tests Past 24 Hrs 01/12/17 01/12/17 06:22 06:22 WBC 13.9 H RBC 3.99 L Hgb 9.1 L Hct 30.2 L MCV 75.7 L MCH 22.8 L MCHC 30.1 L RDW 18.1 H RDW Differential 47.6 H Plt Count 409 MPV 10.0 Immature Gran % (Auto) 0.300 Neut % (Auto) 69.2 Lymph % (Auto) 14.9 L Weakley % (Auto) 10.8 H Eos % (Auto) 4.4 Baso % (Auto) 0.4 Absolute Neuts (auto) 9.6 H Absolute Lymphs (auto) 2.06 Total Counted Not Reportable Sodium 142 Potassium 3.7 Chloride 108 H Carbon Dioxide 28.0 Anion Gap 6 BUN 8 Creatinine 1.02 Estim Creat Clear Calc 53.53 Est GFR (MDRD) Af Amer 71 Est GFR (MDRD) Non-Af 58 L BUN/Creatinine Ratio 7.8 L Glucose 56 L Calcium 8.2 L POC Glucose 01/12/17 01/12/17 01/12/17 11:59 06:50 06:08 POC Glucose 160 H 97 53 L 01/11/17 01/11/17 22:39 18:12 POC Glucose 178 H 219 H Assessment/Plan Impressions 1. sepsis due to suspected diverticulitis - 3/4 SIRS criteria met 2. diverticulosis - colonoscopy 4 years ago - unremarkable 3. Lactic acidosis at admission - resolved 4. Microcytic anemia-suspect iron deficiency 5. Diabetes mellitus type 2 6. History of Takotsubo's cardiomyopathy 7. History of pulmonary embolus a few years ago-still on Xarelto 8. History of CVA 9. Hyperlipidemia 10. Restless leg syndrome 11. URI secondary to rhinovirus 12. History of paroxysmal atrial fibrillation 13. Chronic pain syndrome 14. Depression 15. asthma? on singular? 16. hyperuricemia - on allopurinol 17. seizure disorder? on Lamictal 18. Chronic anticoagulation for paroxysmal atrial fibrillation advance diet to low residue Continue the Zosyn and will probably convert to oral in the AM if she continues to improve She is depressed and is not on an antidepressant - she is on high dose Lyrica which can exacerbate the depression. Affect is very flat and her appetite is poor....consider a trial of effexor or cymbalta...will treat the depression and work for chronic pain. Will discuss with the pt. she would likely benefit from some psychotherapy. Check a hemoglobin A1c. Iron studies and reticulocyte count Consider discontinuing Requip since the patient is on Lyrica which treats restless leg Hemoccult stool DC the IV fluids - she is taking adequate fluids PO now.
[2017-01-12] MEDS: BENZOCAINE/MENTHOL 1 LOZENGE MUCOUS MEM (14:51)
[2017-01-12] MEDS: 0.9% NaCl Peripheral Flush Adult/Peds IV ×4 (14:52→22:13)
[2017-01-12 15:26] LABS: Immature Platelet Fraction 1.4 % (1.0-7.9); RET-HE 18.9 pg (30-35); Reticulocyte Count 1.38 % (0.5-1.5)
[2017-01-12 15:48] LABS: Ferritin 28 ng/mL (8-252); Iron 11 ug/dL (50-170); Iron Binding Capacity,Total 292 ug/dL (250-450); PERCENT IRON SATURATION 3.8 % (15.0-55.0)
[2017-01-12 16:57] LABS: Bedside Glucose 132 mg/dL (70-110)
[2017-01-12 16:58] LABS: Hemoglobin A1c 9.1 % (4.2-6.3)
[2017-01-12] MEDS: Atorvastatin Calcium 20 MG Tablet PO (22:11)
[2017-01-12] MEDS: Pramipexole Di-HCl 0.5 MG Tablet PO (22:12)
[2017-01-13] VITALS (16 sets, daily range): BP systolic 126–167; BP diastolic 49–89; PULSE 65–111; RESP 18–21; TEMP 36.4–37.1; O2SAT 92–95
[2017-01-13] MEDS: oxyCODONE 5 MG Tablet PO (03:10)
[2017-01-13] MEDS: Metoclopramide 10 MG/2 ML Vial 5 MG IV (05:35)
[2017-01-13] MEDS: 0.9% NaCl Peripheral Flush Adult/Peds IV ×5 (05:36→23:53)
[2017-01-13 06:33] LABS: Absolute Lymphocyte Count 2.12 X10^3/ul (0.83-4.51); Absolute Neutrophil Count 5.3 X10^3/uL (2.0-7.7); Basophil# 0.05 X10^3/uL; Basophil% 0.5 % (0-1); Eosinophil# 0.63 X10^3/uL; Eosinophils% 6.9 % (0-5); Hematocrit 28.9 % (37-47); Hemoglobin 8.7 g/dl (12.0-15.0); Lymphocyte # 2.12 X10^3/ul (4.0); Lymphocyte % 23.2 % (19-41); Mean Corp Hgb Conc 30.1 g/gl (32-36); Mean Corpuscular Hgb 22.9 pg (27.0-32.0); Mean Corpuscular Volume 76.1 fL (81-99); Mean Platelet Vol. 9.6 fl (6.2-12.0); Monocyte# 1.03 X10^3/uL; Monocyte% 11.3 % (0-10); Neutrophil # 5.27 X10^3/uL (2.7-7.7); Neutrophil % 57.9 % (47-70); Platelet Count 364 K/mm3 (150-450); RBC Distribution Width CV 18.5 % (11.6-14.6); White Blood Count 9.1 K/mm3 (4.4-11.0)
[2017-01-13 06:40] LABS: Bedside Glucose 84 mg/dL (70-110)
[2017-01-13 06:40] LABS: Bedside Glucose 60 mg/dL (70-110)
[2017-01-13 06:45] LABS: ALB/GLOB Ratio 0.7 RATIO (0.9-2.4); AST(SGOT) 31 U/L (15-37); Alanine Aminotransfer ALT/SGPT 21 U/L (12-78); Albumin, Serum 2.6 g/dL (3.4-5.0); Alkaline Phosphatase 167 U/L (45-117); Anion Gap 8 (5-15); BUN 5 mg/dL (7-18); BUN/Creat Ratio 5.4 RATIO (10-20); Calcium,Total 8.3 mg/dL (8.5-10.1); Chloride 106 mmol/L (98-107); Creatinine, Serum 0.92 mg/dL (0.55-1.02); EST Glomerular Filtration Rate 65 mL/min (>60); Est Glom Filt Rate - Afr Amer 79 mL/min (>60); Estimated Creatinine Clearance 59.35 ml/min; Globulin 3.6 g/dL (2.3-3.5); Glucose 54 mg/dL (70-110); Magnesium 2.1 mg/dL (1.8-2.4); Phosphorus 3.6 mg/dL (2.5-4.9); Potassium 3.2 mmol/L (3.5-5.1); Protein, Total 6.2 g/dL (6.4-8.2); Sodium Level 142 mmol/L (136-145)
[2017-01-13] MEDS: Ipratropium/Albuterol Sulfate 3 ML AMPUL.NEB INHALATION ×3 (06:48→19:17)
[2017-01-13 06:50] LABS: POSITIVE COUNT NO; POSITIVE DIFFERENTIAL NO; POSITIVE MORPHOLOGY NO
[2017-01-13] MEDS: Allopurinol 100 MG Tablet PO (08:39)
[2017-01-13] MEDS: guaiFENesin Dm 10 ML UDC 5 ML PO ×2 (09:08→16:23)
[2017-01-13] MEDS: Acetaminophen 325 MG Tablet 650 MG PO ×2 (09:08→23:25)
[2017-01-13] MEDS: Ondansetron 4 MG/2 ML Vial IV ×2 (09:08→23:53)
[2017-01-13] MEDS: Pregabalin 75 MG Capsule 150 MG PO ×2 (10:53→23:01)
[2017-01-13] MEDS: Losartan Potassium 50 MG Tablet PO (10:53)
[2017-01-13] MEDS: lamoTRIgine 100 MG Tablet PO ×2 (10:53→22:57)
[2017-01-13] MEDS: Rivaroxaban 20 MG Tablet PO (10:53)
--- NOTE | 2017-01-13 11:07 | PCM.PROGNOTE ---
Subjective: Still with cough and some SOB with exertion. No abdominal pain today unless she presses on the left abdomen. Denies nausea and vomiting. Tolerating increasing diet. She slept much better last night with the addition of the Hycodan at HS. Remains afebrile. Mild increase in blood pressure occasionally. She is 93-95% saturated on room air today. Fluid balance was -898 overnight. All lab was reviewed. White blood cell count today is normal at 9.1 with an unremarkable differential. Hemoglobin has dropped to 8.7. Platelets are within normal limits. Potassium is low at 3.2. Reticulocyte count is not elevated..... Indicating a non-regenerating anemia. Serum iron is low at 11 with an iron saturation of 3.8 and a ferritin of 28. TIBC is 292 but the patient has not been eating and has been losing weight and this likely reflects protein malnutrition. Blood sugar was low today at 60. Hemoccult stool was negative. HGBA1C is 9.1. We talked about depression and she is agreed that she has sx of depression. she has never been on an anti-depressant. She is agreeable to a trial of an anti-depressant and a referral to for counselling. - Physical Exam General: Alert, Oriented x3, Cooperative, - - coughing....sounds loose but she is not able to expectorate HEENT: Atraumatic, PERRLA, EOMI Oral: Moist Mucosa Neck: Supple, Trachea Midline Lungs: Rhonchi - Primarily in the bases. Cough increases with deep breathing Cardiovascular: Regular rate, Regular Rhythm, Normal S1, Normal S2, No Gallop Abdomen: Bowel Sounds Present, Soft, Non Tender, Distended, Obese Extremities: No cyanosis, No edema Skin: No rashes Neurological: Cranial nerves II-XII grossly intact, Neuro grossly intact Psych/Mental Status: Flat Affect Vital Signs Temp Pulse Resp BP Pulse Ox 97.6 F 82 18 140/89 95 01/13/17 08:47 01/13/17 08:47 01/13/17 08:47 01/13/17 08:47 01/13/17 08:47 Oxygen Delivery Method Room Air Weight: 261 lb 14.546 oz Body Mass Index (BMI) 42.3 Intake and Output for Last 24 Hours 01/11/17 01/12/17 01/13/17 23:59 23:59 23:59 Intake Total 4779 3658 452 Output Total 1350 3100 1350 Balance 3425 716 -245 Microbiology Past 72 Hours 01/13/17 09:03 Stool Occult Blood (RICKY) - Final Stool 01/10/17 17:35 Respiratory Panel (PCR) - Final Mucosa - Nose Rhinovirus 01/10/17 18:09 Urine Culture - Final Urine, Clean Catch Mixed Gram Pos & Gram Neg Org Laboratory Tests Past 24 Hrs 01/12/17 01/12/17 01/12/17 14:55 14:55 14:55 WBC RBC Hgb Hct MCV MCH MCHC RDW RDW Differential Plt Count MPV Immature Gran % (Auto) Neut % (Auto) Lymph % (Auto) Frederick % (Auto) Eos % (Auto) Baso % (Auto) Absolute Neuts (auto) Absolute Lymphs (auto) Total Counted Immature Plt Fraction 1.4 Retic Count 1.38 Immature Retic Fraction 8.30 Retic Hgb Equivalent 18.9 L Sodium Potassium Chloride Carbon Dioxide Anion Gap BUN Creatinine Estim Creat Clear Calc Est GFR (MDRD) Af Amer Est GFR (MDRD) Non-Af BUN/Creatinine Ratio Glucose Hemoglobin A1c 9.1 H Calcium Phosphorus Magnesium Iron 11 L TIBC 292 Iron Saturation 3.8 L Ferritin 28 Total Bilirubin AST ALT Alkaline Phosphatase Total Protein Albumin Globulin Albumin/Globulin Ratio 01/13/17 01/13/17 05:31 05:31 WBC 9.1 RBC 3.80 L Hgb 8.7 L Hct 28.9 L MCV 76.1 L MCH 22.9 L MCHC 30.1 L RDW 18.5 H RDW Differential 49.0 H Plt Count 364 MPV 9.6 Immature Gran % (Auto) 0.200 Neut % (Auto) 57.9 Lymph % (Auto) 23.2 Frederick % (Auto) 11.3 H Eos % (Auto) 6.9 H Baso % (Auto) 0.5 Absolute Neuts (auto) 5.3 Absolute Lymphs (auto) 2.12 Total Counted Not Reportable Immature Plt Fraction Retic Count Immature Retic Fraction Retic Hgb Equivalent Sodium 142 Potassium 3.2 L Chloride 106 Carbon Dioxide 28.0 Anion Gap 8 BUN 5 L Creatinine 0.92 Estim Creat Clear Calc 59.35 Est GFR (MDRD) Af Amer 79 Est GFR (MDRD) Non-Af 65 BUN/Creatinine Ratio 5.4 L Glucose 54 L Hemoglobin A1c Calcium 8.3 L Phosphorus 3.6 Magnesium 2.1 Iron TIBC Iron Saturation Ferritin Total Bilirubin 0.70 AST 31 ALT 21 Alkaline Phosphatase 167 H Total Protein 6.2 L Albumin 2.6 L Globulin 3.6 H Albumin/Globulin Ratio 0.7 L POC Glucose 01/13/17 01/13/17 01/12/17 06:07 05:38 16:46 POC Glucose 84 60 L 132 H 01/12/17 11:59 POC Glucose 160 H Assessment/Plan Impressions 1. sepsis due to suspected diverticulitis - 3/4 SIRS criteria met 2. diverticulosis - colonoscopy 4 years ago - unremarkable 3. Lactic acidosis at admission - resolved 4. Microcytic anemia-due to iron deficiency 5. Diabetes mellitus type 2 -uncontrolled as an outpatient with hemoglobin A1c 9.1 6. History of Takotsubo's cardiomyopathy 7. History of pulmonary embolus a few years ago-still on Xarelto, but for AF not for PE 8. History of CVA 9. Hyperlipidemia 10. Restless leg syndrome 11. URI secondary to rhinovirus 12. History of paroxysmal atrial fibrillation 13. Chronic pain syndrome 14. Depression 15. asthma? on singular? 16. hyperuricemia - on allopurinol 17. seizure disorder? on Lamictal 18. Chronic anticoagulation for paroxysmal atrial fibrillation 19. Hypoglycemia Start cymbalta for depression and refer to up to the chair today PT/OT Decrease at bedtime Levemir to 32 units. Change the sliding scale to 3 times daily before meals with medium dosing Venofer 200 mg daily for 5 doses She has not been taking care of herself for several months now. in June or July. Depending on how she does with PT she may need a SNF at [place] for a short time. She is on several sedating meds....fibromyalgia, diabetic neuropathy....on high dose Lyrica and MS Contin and Willits and Requip....? whether she really needs all this. Will discuss weaning some of these medications down and using cymbalta for chronic pain and depression...I suspect the untreated depression contributes significantly to her perception of pain......up and moving today
--- NOTE | 2017-01-13 11:32 | RAD_ITS ---
STUDY: X-RAY CHEST REASON FOR EXAM: Female, 61 years old. cough TECHNIQUE: PA and lateral views of the chest. COMPARISON: January 10, 2017 FINDINGS: Minimally prominent interstitial markings are again seen at the lung bases. There is no demonstrated pleural abnormality. Normal size heart. Normal mediastinum and judith. Normal visualized pulmonary arteries. There is atherosclerotic calcification of the aortic arch with tortuosity. There is demineralization of the osseous structures. Normal visualized ribs, clavicles, and shoulders. There is no demonstrated abnormality of the visualized soft tissue structures of the upper abdomen. RAD/Chest PA and Lateral IMPRESSION: No acute disease is demonstrated. Electronically Signed: Lucia Medley MD at 13:18 EDT , Service support ,
[2017-01-13 11:43] LABS: Bedside Glucose 128 mg/dL (70-110)
[2017-01-13] MEDS: Amox/Clavulanate 875 MG Tablet PO ×2 (13:18→22:58)
[2017-01-13] MEDS: DULoxetine Hcl 30 MG Capsule PO (13:18)
[2017-01-13 16:41] LABS: Bedside Glucose 152 mg/dL (70-110)
[2017-01-13 18:00] LABS: Bedside Glucose 255 mg/dL (70-110)
[2017-01-13] MEDS: Atorvastatin Calcium 20 MG Tablet PO (22:57)
[2017-01-13] MEDS: Pantoprazole Sodium 40 MG Tablet PO (22:58)
[2017-01-13] MEDS: Pramipexole Di-HCl 0.5 MG Tablet PO (22:58)
[2017-01-13] MEDS: BENZOCAINE/MENTHOL 1 LOZENGE MUCOUS MEM (23:26)
[2017-01-14] VITALS (16 sets, daily range): BP systolic 136–154; BP diastolic 65–107; PULSE 70–95; RESP 16–20; TEMP 36.6–36.8; O2SAT 92–95
[2017-01-14 05:35] LABS: Hematocrit 28.8 % (37-47); Hemoglobin 8.6 g/dl (12.0-15.0)
[2017-01-14] MEDS: 0.9% NaCl Peripheral Flush Adult/Peds IV ×3 (05:42→14:54)
[2017-01-14 05:51] LABS: Anion Gap 6 (5-15); BUN 2 mg/dL (7-18); BUN/Creat Ratio 2.4 RATIO (10-20); Chloride 104 mmol/L (98-107); Creatinine, Serum 0.84 mg/dL (0.55-1.02); EST Glomerular Filtration Rate 73 mL/min (>60); Est Glom Filt Rate - Afr Amer 88 mL/min (>60); Estimated Creatinine Clearance 65.01 ml/min; Glucose 132 mg/dL (70-110); Potassium 3.9 mmol/L (3.5-5.1); Sodium Level 139 mmol/L (136-145)
[2017-01-14] MEDS: Acetaminophen 325 MG Tablet 650 MG PO ×2 (05:52→14:51)
[2017-01-14] MEDS: guaiFENesin Dm 10 ML UDC 5 ML PO ×2 (05:52→15:00)
[2017-01-14] MEDS: BENZOCAINE/MENTHOL 1 LOZENGE MUCOUS MEM (05:52)
[2017-01-14] MEDS: Ipratropium/Albuterol Sulfate 3 ML AMPUL.NEB INHALATION ×5 (06:59→22:32)
[2017-01-14 07:06] LABS: Bedside Glucose 98 mg/dL (70-110)
[2017-01-14 07:06] LABS: Bedside Glucose 128 mg/dL (70-110)
--- NOTE | 2017-01-14 09:30 | NURSING ---
PT. C/O NAUSEA AND INQUIRES ABOUT IV REGLAN. ZOFRAN GIVEN. NURSE TO ASK MD ABOUT REGLAN DURING ROUNDS.
[2017-01-14] MEDS: Ondansetron 4 MG/2 ML Vial IV (09:34)
[2017-01-14] MEDS: Rivaroxaban 20 MG Tablet PO (09:41)
[2017-01-14] MEDS: DULoxetine Hcl 30 MG Capsule PO (09:41)
[2017-01-14] MEDS: lamoTRIgine 100 MG Tablet PO ×2 (09:41→21:46)
[2017-01-14] MEDS: Losartan Potassium 50 MG Tablet PO (09:41)
[2017-01-14] MEDS: Pantoprazole Sodium 40 MG Tablet PO ×2 (09:41→21:46)
[2017-01-14] MEDS: Allopurinol 100 MG Tablet PO (09:41)
[2017-01-14] MEDS: Amox/Clavulanate 875 MG Tablet PO ×2 (09:42→17:24)
[2017-01-14] MEDS: Pregabalin 75 MG Capsule 150 MG PO ×2 (09:42→21:46)
[2017-01-14 11:39] LABS: Bedside Glucose 155 mg/dL (70-110)
[2017-01-14 16:45] LABS: Bedside Glucose 193 mg/dL (70-110)
--- NOTE | 2017-01-14 18:06 | PCM.PROGNOTE ---
Subjective: Day #5 antibiotics Patient is complaining of nausea and stomach discomfort today. Reglan was discontinued and she tells me that she takes it 3 times a day for chronic reflux. She has been ambulatory in the room. Less cough today. Denies chest pain. Denies abdominal pain. No diarrhea. Denies sores in her mouth or painful swallowing. No vaginal itching or discharge. Denies chest pain or shortness of breath. - Physical Exam General: Alert, Oriented x3, Cooperative, - - more animated and conversant today with better affect HEENT: Atraumatic, PERRLA, EOMI Oral: Moist Mucosa Neck: Supple, Trachea Midline Lungs: Diminished, Rhonchi - mostly cleared after a cough Cardiovascular: Regular rate, Regular Rhythm, Normal S1, Normal S2, No Gallop Abdomen: Bowel Sounds Present, Soft, Non Tender, Non-Distended Extremities: No edema Vital Signs Temp Pulse Resp BP Pulse Ox 97.9 F 82 18 154/65 92 01/14/17 14:46 01/14/17 17:26 01/14/17 15:26 01/14/17 14:46 01/14/17 14:46 Oxygen Delivery Method Room Air Weight: 261 lb 14.546 oz Body Mass Index (BMI) 42.3 Intake and Output for Last 24 Hours 01/12/17 01/13/17 01/14/17 23:59 23:59 23:59 Intake Total 3658 902 1207 Output Total 3100 2050 1000 Balance 558 -1148 207 Microbiology Past 72 Hours 01/13/17 09:03 Stool Occult Blood (RICKY) - Final Stool 01/10/17 17:35 Respiratory Panel (PCR) - Final Mucosa - Nose Rhinovirus 01/10/17 18:09 Urine Culture - Final Urine, Clean Catch Mixed Gram Pos & Gram Neg Org Laboratory Tests Past 24 Hrs 01/14/17 01/14/17 05:00 05:00 Hgb 8.6 L Hct 28.8 L Sodium 139 Potassium 3.9 Chloride 104 Carbon Dioxide 29.0 Anion Gap 6 BUN 2 L Creatinine 0.84 Estim Creat Clear Calc 65.01 Est GFR (MDRD) Af Amer 88 Est GFR (MDRD) Non-Af 73 BUN/Creatinine Ratio 2.4 L Glucose 132 H Calcium 9.0 POC Glucose 05/29/17 05/29/17 05/29/17 16:25 11:28 06:55 POC Glucose 193 H 155 H 128 H 01/13/17 22:58 POC Glucose 98 Assessment/Plan Impressions 1. sepsis due to suspected diverticulitis - 3/4 SIRS criteria met 2. diverticulosis - colonoscopy 4 years ago - unremarkable 3. Lactic acidosis at admission - resolved 4. Microcytic anemia-due to iron deficiency...HGB is stable 5. Diabetes mellitus type 2 -uncontrolled as an outpatient with hemoglobin A1c 9.1 6. History of Takotsubo's cardiomyopathy 7. History of pulmonary embolus a few years ago-still on Xarelto, but for AF not for PE 8. History of CVA 9. Hyperlipidemia 10. Restless leg syndrome 11. URI secondary to rhinovirus 12. History of paroxysmal atrial fibrillation 13. Chronic pain syndrome 14. Depression 15. asthma? on singular? 16. hyperuricemia - on allopurinol 17. seizure disorder? on Lamictal 18. Chronic anticoagulation for paroxysmal atrial fibrillation 19. Hypoglycemia restart Reglan continue cymbalta she is agreeable to talking with behavioral health...I think she needs counselling Possible DC tomorrow
[2017-01-14] MEDS: Pramipexole Di-HCl 0.5 MG Tablet PO (21:46)
[2017-01-14] MEDS: Atorvastatin Calcium 20 MG Tablet PO (21:46)
[2017-01-14 22:04] LABS: Bedside Glucose 212 mg/dL (70-110)
[2017-01-15] VITALS (8 sets, daily range): BP systolic 140–179; BP diastolic 65–84; PULSE 76–107; RESP 16–18; TEMP 36.3–37.1; O2SAT 92–96
[2017-01-15] MEDS: guaiFENesin Dm 10 ML UDC 5 ML PO ×3 (02:20→18:21)
[2017-01-15] MEDS: Ondansetron 4 MG/2 ML Vial IV (06:00)
[2017-01-15] MEDS: Metoclopramide 10 MG Tablet PO ×3 (06:41→17:03)
[2017-01-15 06:47] LABS: Bedside Glucose 139 mg/dL (70-110)
[2017-01-15] MEDS: Ipratropium/Albuterol Sulfate 3 ML AMPUL.NEB INHALATION ×3 (07:15→15:11)
[2017-01-15] MEDS: Losartan Potassium 50 MG Tablet PO (08:22)
[2017-01-15] MEDS: Amox/Clavulanate 875 MG Tablet PO ×2 (08:22→17:03)
[2017-01-15] MEDS: Allopurinol 100 MG Tablet PO (08:22)
[2017-01-15] MEDS: Pantoprazole Sodium 40 MG Tablet PO (08:23)
[2017-01-15] MEDS: Montelukast 10 MG Tablet PO (08:23)
[2017-01-15] MEDS: DULoxetine Hcl 30 MG Capsule PO (08:23)
[2017-01-15] MEDS: Pregabalin 75 MG Capsule 150 MG PO (08:23)
[2017-01-15] MEDS: lamoTRIgine 100 MG Tablet PO (08:23)
[2017-01-15] MEDS: Rivaroxaban 20 MG Tablet PO (08:24)
[2017-01-15] MEDS: 0.9% NaCl Peripheral Flush Adult/Peds IV (08:29)
[2017-01-15] MEDS: BENZOCAINE/MENTHOL 1 LOZENGE MUCOUS MEM (11:03)
--- NOTE | 2017-01-15 11:43 | CASEMGMT ---
Social Work Call to Behavioral Health and left information for a consult for Minh with [facility]. Physician placed order for consult for BH due to depression and grieving. Minh to see pt as time allows. AJ to continue to follow and assist as needed. Ashli Carter, SEISMIC PROSPECTING OBSERVER FRAMING CONSULTANT
[2017-01-15 16:51] LABS: Bedside Glucose 181 mg/dL (70-110)
--- NOTE | 2017-01-15 17:44 | PCM.DC ---
Discharge Diet: Low fat/ Low Cholesterol, Carb Control Diet, - - no caffeine, peppermints, chocolates...all these increase reflux Discharge Activity: Return to Normal Activity Call your doctor if you observe: Fever of 101 or Higher, Inability to have a bowel movement, Shortness of breath, Dizziness, Fainting spells, Swelling in the ankles, Chest pain, - - severe diarrhea, sores in your mouth or painful swallowing, vaginal Discharge or itching Instructions: Understanding Diverticulosis and Diverticulitis, MyPlate Worksheet: 1,800 Calories, Mood Swings and Depression After a Stroke, Depression Affects Your Mind and Body, What Can Cause Depression?, Counseling for Depression, Depression: Tips to Help Yourself Additional Instructions: You are depressed and have not been taking care of yourself. Your diabetes is out of control, your aren't eating healthy, you are not motivated to do much except lie in bed and you aren't having any fun. I have started you on a antidepressant called Cymbalta, also called duloxetine. You will take this medication once daily in the a.m. I would not increase this medication above 30 mg daily due to a possible interaction with Reglan. Do not lie down for at least 2 hours after eating because it will increase the reflux/heartburn. You had diverticulitis and this caused her abdominal pain. You will continue taking an antibiotic for a few more days to make sure the infection does not come back. You also had a upper respiratory tract infection due to a virus called rhinovirus. I think you would benefit from counselling. A message was left with the behavioral Health people at the hospital and they should be calling you. Another option would be to call [facility] and get an appt with Lauren Ayala.....she is a therapist and she is excellent....I think she could help you. The number is [phone]. You are young and have plenty of life left to live....it will get better but, you need some help to figure out how to make it get better. Pending Tests Upon Discharge: none Allergies/Adverse Reactions: Allergies ciprofloxacin [From Cipro] Allergy (Verified 07/29/16 13:59) Shortness of breath ciprofloxacin HCl [From Cipro] Allergy (Verified 12/11/16 13:59) Shortness of breath cyclobenzaprine HCl [From Flexeril] Allergy (Verified 07/29/16 13:59) Rash ketorolac tromethamine [From Toradol] Allergy (Verified 07/29/16 13:59) Chest tightness sulfamethoxazole [From Bactrim] Allergy (Verified 07/29/16 13:59) Itching trimethoprim [From Bactrim] Allergy (Verified 07/29/16 13:59) Itching valacyclovir HCl [From Valtrex] Adverse Reaction (Verified 07/29/16 13:59) Other Medications to take at Discharge Allopurinol [Zyloprim] 100 mg PO DAILYCM 05/07/16 Aspirin [Aspirin, Baby] 81 mg PO DAILY 05/07/16 Hydrocodone Bitart/Apap 5-325 [Sanger 5/325] 1 tablet PO 4X/DAY PRN 05/07/16 Lamotrigine 100 mg PO BID 05/07/16 Montelukast [Singulair] 10 mg PO DAILY 05/07/16 MorphINE [Ms Contin] 15 mg PO BID 05/07/16 Olmesartan Medoxomil [Benicar] 20 mg PO DAILY 05/07/16 Omeprazole [Prilosec] 40 mg PO DAILY 05/07/16 Pregabalin [Lyrica] 150 mg PO BID 05/07/16 Rivaroxaban [Xarelto] 20 mg PO DAILY 05/07/16 Ropinirole HCl [Requip] 1 mg PO QHS 05/07/16 Simvastatin [Zocor] 40 mg PO QHS 05/07/16 Albuterol Inhaler [Ventolin Hfa] 1 - 2 puff INHALATION Q4H PRN PRN #1 inhaler 05/14/16 Ondansetron [Zofran Odt] 4 mg PO Q8H PRN PRN #10 tablet 05/17/16 Benzonatate [Tessalon Perle] 200 mg PO TID PRN PRN #20 capsule 07/29/16 ProMETHAzine [Phenergan] 25 mg PO Q6H PRN PRN #10 tablet 07/29/16 Metoclopramide [Reglan] 10 mg PO TID 11/11/16 Insulin Degludec [Tresiba Flextouch U-200] 120 units SQ DAILY 01/10/17 Insulin Lispro [Humalog Kwikpen] 30 - 40 unit SQ ACHS 01/10/17 Amox/Clavulanate Tablet [Augmentin Tablet] 875 mg PO BIDCM #8 tablet 01/15/17 Bupropion HCl [Wellbutrin Xl] 150 mg PO DAILY #30 tab.er.24h 01/15/17 Polyethylene Glycol 3350 [Miralax] 17 gm PO DAILY #30 packet 01/15/17 The following prescriptions were given: Bupropion HCl [Wellbutrin Xl] 150 mg PO DAILY #30 tab.er.24h Polyethylene Glycol 3350 [Miralax] 17 gm PO DAILY #30 packet Amox/Clavulanate Tablet [Augmentin Tablet] 875 mg PO BIDCM #8 tablet Primary Care Physician: Devan Pakrs [Primary Care Provider] - Please follow up with your Primary Care Physician in: 7-10 days Proposed Discharge Date: 01/15/17
--- NOTE | 2017-01-15 17:55 | DCINST_ITS ---
Discharge Diet: Low fat/ Low Cholesterol, Carb Control Diet, - - no caffeine, peppermints, chocolates...all these increase reflux Discharge Activity: Return to Normal Activity Call your doctor if you observe: Fever of 101 or Higher, Inability to have a bowel movement, Shortness of breath, Dizziness, Fainting spells, Swelling in the ankles, Chest pain, - - severe diarrhea, sores in your mouth or painful swallowing, vaginal Discharge or itching Instructions: Understanding Diverticulosis and Diverticulitis, MyPlate Worksheet: 1,800 Calories, Mood Swings and Depression After a Stroke, Depression Affects Your Mind and Body, What Can Cause Depression?, Counseling for Depression, Depression: Tips to Help Yourself Additional Instructions: You are depressed and have not been taking care of yourself. Your diabetes is out of control, your aren't eating healthy, you are not motivated to do much except lie in bed and you aren't having any fun. I have started you on a antidepressant called Cymbalta, also called duloxetine. You will take this medication once daily in the a.m. I would not increase this medication above 30 mg daily due to a possible interaction with Reglan. Do not lie down for at least 2 hours after eating because it will increase the reflux/heartburn. You had diverticulitis and this caused her abdominal pain. You will continue taking an antibiotic for a few more days to make sure the infection does not come back. You also had a upper respiratory tract infection due to a virus called rhinovirus. I think you would benefit from counselling. A message was left with the behavioral Health people at the hospital and they should be calling you. Another option would be to call [facility] on [facility] and get an appt with Lauren Ayala.....she is a therapist and she is excellent....I think she could help you. The number is [phone]. You are young and have plenty of life left to live....it will get better but, you need some help to figure out how to make it get better. Pending Tests Upon Discharge: none Allergies/Adverse Reactions: Allergies ciprofloxacin [From Cipro] Allergy (Verified 07/29/16 13:59) Shortness of breath ciprofloxacin HCl [From Cipro] Allergy (Verified 12/11/16 13:59) Shortness of breath cyclobenzaprine HCl [From Flexeril] Allergy (Verified 07/29/16 13:59) Rash ketorolac tromethamine [From Toradol] Allergy (Verified 07/29/16 13:59) Chest tightness sulfamethoxazole [From Bactrim] Allergy (Verified 07/29/16 13:59) Itching trimethoprim [From Bactrim] Allergy (Verified 07/29/16 13:59) Itching valacyclovir HCl [From Valtrex] Adverse Reaction (Verified 07/29/16 13:59) Other Medications to take at Discharge Allopurinol [Zyloprim] 100 mg PO DAILYCM 05/07/16 Aspirin [Aspirin, Baby] 81 mg PO DAILY 05/07/16 Hydrocodone Bitart/Apap 5-325 [[place] 5/325] 1 tablet PO 4X/DAY PRN 05/07/16 Lamotrigine 100 mg PO BID 05/07/16 Montelukast [Singulair] 10 mg PO DAILY 05/07/16 MorphINE [Ms Contin] 15 mg PO BID 05/07/16 Olmesartan Medoxomil [Benicar] 20 mg PO DAILY 05/07/16 Omeprazole [Prilosec] 40 mg PO DAILY 05/07/16 Pregabalin [Lyrica] 150 mg PO BID 05/07/16 Rivaroxaban [Xarelto] 20 mg PO DAILY 05/07/16 Ropinirole HCl [Requip] 1 mg PO QHS 05/07/16 Simvastatin [Zocor] 40 mg PO QHS 05/07/16 Albuterol Inhaler [Ventolin Hfa] 1 - 2 puff INHALATION Q4H PRN PRN #1 inhaler Ondansetron [Zofran Odt] 4 mg PO Q8H PRN PRN #10 tablet 05/17/16 Benzonatate [Tessalon Perle] 200 mg PO TID PRN PRN #20 capsule 07/29/16 ProMETHAzine [Phenergan] 25 mg PO Q6H PRN PRN #10 tablet 07/29/16 Metoclopramide [Reglan] 10 mg PO TID 11/11/16 Insulin Degludec [Tresiba Flextouch U-200] 120 units SQ DAILY 01/10/17 Insulin Lispro [Humalog Kwikpen] 30 - 40 unit SQ ACHS 01/10/17 Amox/Clavulanate Tablet [Augmentin Tablet] 875 mg PO BIDCM #8 tablet 01/15/17 Bupropion HCl [Wellbutrin Xl] 150 mg PO DAILY #30 tab.er.24h 01/15/17 Polyethylene Glycol 3350 [Miralax] 17 gm PO DAILY #30 packet 01/15/17 The following prescriptions were given: Bupropion HCl [Wellbutrin Xl] 150 mg PO DAILY #30 tab.er.24h Polyethylene Glycol 3350 [Miralax] 17 gm PO DAILY #30 packet Amox/Clavulanate Tablet [Augmentin Tablet] 875 mg PO BIDCM #8 tablet Primary Care Physician: Devan Parks [Primary Care Provider] - Please follow up with your Primary Care Physician in: 7-10 days Proposed Discharge Date: 01/15/17
--- NOTE | 2017-01-15 18:05 | PCM.DC.SUM ---
Discharge Date and Diagnosis Date of Admission: 01/10/17 Date of Discharge: 01/15/17 - Primary Discharge Diagnosis Active and Suspected Problems Sepsis (Acute) Diverticulitis (Acute) Viral upper respiratory infection (Acute) - Rhinovirus Seizure disorder (Suspected) she has had a CVA and she is on Lamictal Hypoglycemia (Acute) - Secondary Discharge Diagnosis Chronic Problems Chronic anticoagulation (Chronic) Chronic pain syndrome (Chronic) Depression (Chronic) Diverticulosis (Chronic) GERD (gastroesophageal reflux disease) (Chronic) History of CVA (cerebrovascular accident) (Chronic) Hyperuricemia (Chronic) Iron deficiency anemia (Chronic) Morbid obesity with BMI of 40.0-44.9, adult (Chronic) Paroxysmal atrial fibrillation (Chronic) Takotsubo cardiomyopathy (Chronic) Benign essential HTN (Chronic) DM2 (diabetes mellitus, type 2) (Chronic) HLD (hyperlipidemia) (Chronic) Migraine headache (Chronic) Restless leg (Chronic) Hospital Course and Treatment Imaging Results: Clinical Impression(s) from Imaging Studies Chest X-Ray 01/10/17 11:31 IMPRESSION: No acute abnormality is seen. Electronically Signed: Tristan De La Garza MD at 12:56 EDT Tel [phone], Service support , Abdomen/Pelvis CT 01/10/17 13:33 IMPRESSION: Mild degree of circumferential wall thickening and increased markings in the surrounding peritoneal fat involving the distal descending colon and proximal rectosigmoid colon. Scattered sigmoid diverticula are also seen. Electronically Signed: Tristan De La Garza MD at 14:40 EDT Tel [phone], Service support , Chest X-Ray 01/13/17 11:32 IMPRESSION: No acute disease is demonstrated. Electronically Signed: Lucia Medley MD at 13:18 EDT , Service support , none Operations: None, - - EGD Procedures: None Summary of Care Provided: The patient is a 61 y/o w/ PMHx: HTN, HLD, Morbid obesity, Migraines, RLS, Diabetes mellitus type II, History of cyclical N/V, Takotsubo's Cardiomyopathy who presents to the [facility] ED on 01/10/17 w/ ongoing abdominal discomfort with cramping abdominal pain in addition to nausea and emesis with inability to maintain appropriate p.o. intake ?48 hours in addition to mild cough, nonproductive with subjective chills, no fever with recent ill contacts with similar presentation. Emergency room patient is afebrile, heart rate 80-90, BP 160-170 over 70s, respiratory rate 18, 97% on room air, with WBC 19.5, hemoglobin 10.3, platelet 384 with left shift, CMP with BUN/Creat 10/1.05, glucose 219, LA 2.1, Alk phos 198, UA unremarkable, CXR with chronic changes, CT A/P w/ mild degree circumferential wall thickening and increased markings in the surrounding peritoneal fat involving the distal descending colon and proximal rectosigmoid colon with scattered sigmoid diverticula seen. She was admitted to the hospital with diagnosis of a acute colitis/suspected diverticulitis and started on Zosyn. She gradually improved and the abdominal pain resolved. Since her she has been depressed and not taking care of herself. She was agreeable to trying and anti-depressant and cymbalta was started. We strongly advised her to get psychotherapy in conjunction with the Cymbalta. She was discharged on 01/15/17 with a prescription for Augmentin 875 mg and will take 1 twice daily for 4 more days following discharge to conclude 10 days of therapy for suspected diverticulitis. She will follow-up with Dr. Parks in 7-10 days. Discharge Diet: Low fat/ Low Cholesterol, Carb Control Diet, - - no caffeine, peppermints, chocolates...all these increase reflux Discharge Activity: Return to Normal Activity Call your doctor if you observe: Fever of 101 or Higher, Inability to have a bowel movement, Shortness of breath, Dizziness, Fainting spells, Swelling in the ankles, Chest pain, - - severe diarrhea, sores in your mouth or painful swallowing, vaginal Discharge or itching Home Medications: Medications to take at Discharge Allopurinol [Zyloprim] 100 mg PO DAILYCM 05/07/16 Aspirin [Aspirin, Baby] 81 mg PO DAILY 05/07/16 Hydrocodone Bitart/Apap 5-325 [[place] 5/325] 1 tablet PO 4X/DAY PRN 05/07/16 Lamotrigine 100 mg PO BID 05/07/16 Montelukast [Singulair] 10 mg PO DAILY 05/07/16 MorphINE [Ms Contin] 15 mg PO BID 05/07/16 Olmesartan Medoxomil [Benicar] 20 mg PO DAILY 05/07/16 Omeprazole [Prilosec] 40 mg PO DAILY 05/07/16 Pregabalin [Lyrica] 150 mg PO BID 05/07/16 Rivaroxaban [Xarelto] 20 mg PO DAILY 05/07/16 Ropinirole HCl [Requip] 1 mg PO QHS 05/07/16 Simvastatin [Zocor] 40 mg PO QHS 05/07/16 Albuterol Inhaler [Ventolin Hfa] 1 - 2 puff INHALATION Q4H PRN PRN #1 inhaler 05/14/16 Ondansetron [Zofran Odt] 4 mg PO Q8H PRN PRN #10 tablet 05/17/16 Benzonatate [Tessalon Perle] 200 mg PO TID PRN PRN #20 capsule 07/29/16 ProMETHAzine [Phenergan] 25 mg PO Q6H PRN PRN #10 tablet 07/29/16 Metoclopramide [Reglan] 10 mg PO TID 11/11/16 Insulin Degludec [Tresiba Flextouch U-200] 120 units SQ DAILY 01/10/17 Insulin Lispro [Humalog Kwikpen] 30 - 40 unit SQ ACHS 01/10/17 Amox/Clavulanate Tablet [Augmentin Tablet] 875 mg PO BIDCM #8 tablet 01/15/17 Duloxetine Hcl [Cymbalta] 30 mg PO DAILY #30 capsule 01/15/17 Polyethylene Glycol 3350 [Miralax] 17 gm PO DAILY #30 packet 01/15/17 Following Prescrptions Were Given to Patient: Duloxetine Hcl [Cymbalta] 30 mg PO DAILY #30 capsule Polyethylene Glycol 3350 [Miralax] 17 gm PO DAILY #30 packet Amox/Clavulanate Tablet [Augmentin Tablet] 875 mg PO BIDCM #8 tablet Primary Care Physician: Devan Parks [Primary Care Provider] - Please follow up with your Primary Care Physician in: 7-10 days Patient Instructions: Understanding Diverticulosis and Diverticulitis, Mood Swings and Depression After a Stroke, Depression Affects Your Mind and Body, What Can Cause Depression?, Counseling for Depression, Depression: Tips to Help Yourself, MyPlate Worksheet: 1,800 Calories Additional Instructions: You are depressed and have not been taking care of yourself. Your diabetes is out of control, your aren't eating healthy, you are not motivated to do much except lie in bed and you aren't having any fun. I have started you on a antidepressant called Cymbalta, also called duloxetine. You will take this medication once daily in the a.m. I would not increase this medication above 30 mg daily due to a possible interaction with Reglan. Do not lie down for at least 2 hours after eating because it will increase the reflux/heartburn. You had diverticulitis and this caused her abdominal pain. You will continue taking an antibiotic for a few more days to make sure the infection does not come back. You also had a upper respiratory tract infection due to a virus called rhinovirus. I think you would benefit from counselling. A message was left with the behavioral Health people at the hospital and they should be calling you. Another option would be to call [facility] on [facility] and get an appt with Lauren Ayala.....she is a therapist and she is excellent....I think she could help you. The number is [phone]. You are young and have plenty of life left to live....it will get better but, you need some help to figure out how to make it get better. Pending Tests Upon Discharge: none Disposition: Home Minutes spent on discharge:: 35 Patient Condition:: Stable Meaningful Use Info Meaningful Use Diagnoses (Choose all that apply): None applicable
== END 2017-01-15 18:35 | disposition home or self-care (01) | DRG 392 ==
PROVIDERS: Hospitalist; Admitting Provider Family Medicine; Emergency Provider Emergency Medicine; Family Provider Family Medicine; PCP Family Medicine; Visit Provider Internal Medicine
DX: K57.32 Diverticulitis of large intestine without perforation or abscess without bleeding (principal); Z68.41 Body mass index [BMI] 40.0-44.9, adult; I51.81 Takotsubo syndrome; E11.40 Type 2 diabetes mellitus with diabetic neuropathy, unspecified; E11.649 Type 2 diabetes mellitus with hypoglycemia without coma; G25.81 Restless legs syndrome; I10 Essential (primary) hypertension; I48.0 Paroxysmal atrial fibrillation; E11.65 Type 2 diabetes mellitus with hyperglycemia; E66.01 Morbid (severe) obesity due to excess calories; B97.89 Other viral agents as the cause of diseases classified elsewhere; J06.9 Acute upper respiratory infection, unspecified; Z86.73 Personal history of transient ischemic attack (TIA), and cerebral infarction without residual deficits; Z79.4 Long term (current) use of insulin; Z79.899 Other long term (current) drug therapy; K21.9 Gastro-esophageal reflux disease without esophagitis; G43.909 Migraine, unspecified, not intractable, without status migrainosus; D50.9 Iron deficiency anemia, unspecified; G89.4 Chronic pain syndrome; F32.9 Major depressive disorder, single episode, unspecified; E78.4 Other hyperlipidemia; Z86.711 Personal history of pulmonary embolism; Z79.82 Long term (current) use of aspirin; Z79.02 Long term (current) use of antithrombotics/antiplatelets; E79.0 Hyperuricemia without signs of inflammatory arthritis and tophaceous disease; G40.909 Epilepsy, unspecified, not intractable, without status epilepticus
CPT/HCPCS: 36415; 71020; 74176; 80048; 80053; 81001; 82274; 82728; 82962; 83036; 83540; 83550; 83605; 83690; 83735; 84100; 84484; 85014; 85018; 85025; 85045; 87086; 87088; 87633; 93005; 94640; 97161; 97166; 97530; 97802; 99285; J1756; J7030; A4216; J2405

== ENCOUNTER 2017-11-24 20:35 | Emergency (ER) | payer MEDICARE, SELFPAY ==
[2017-11-24 20:36] VITALS: BP 118/58; PULSE 107; RESP 16; TEMP 36.7; O2SAT 95; BMI 40.3
[2017-11-24 21:26] LABS: Anion Gap 9 (5-15); BUN 15 mg/dL (7-18); Calcium,Total 8.7 mg/dL (8.5-10.1); Chloride 100 mmol/L (98-107); Creatinine, Serum 1.15 mg/dL (0.55-1.02); EST Glomerular Filtration Rate 51 mL/min (>60); Est Glom Filt Rate - Afr Amer 61 mL/min (>60); Estimated Creatinine Clearance 46.87 ml/min; Glucose 325 mg/dL (74-106); Potassium 4.1 mmol/L (3.5-5.1); Sodium Level 133 mmol/L (136-145)
[2017-11-24] MEDS: 0.9% Normal Saline 1,000 ML 1000 ML IV (21:36)
[2017-11-24] MEDS: proMETHazine 25 MG/ML Syringe 6.25 MG IV ×2 (21:36→22:11)
--- NOTE | 2017-11-24 22:00 | ED.DCSUM_ITS ---
- ER Visit Summary Date of Service: 11/24/17 Chief Complaint: [] Nausea and vomiting History of Present Illness: The patient is a 62 F [] complaining of nausea and vomiting 6 hours ago. Patient reports a history of gastroparesis which requires fluids and nausea medications. Patient does not want pain medication. She reports she usually this requires fluids and Phenergan. Denies fevers. Denies localized abdominal pain. Denies diarrhea. No other complaints. Physical Examination: [] Afebrile, vital signs stable. Elderly obese female no acute distress. Cardiovascular exam is regular rate and rhythm. Lungs are clear to auscultation. Abdomen is soft and nontender. No lower extremity edema. Test Results: [] BMP normal with exception of a sodium slightly low at 133. Emergency Department Course and Treatment: [] Patient received intravenous normal saline bolus and total of 2 doses of 6.25 of Phenergan with good symptom resolution. Patient reports she has a prescription for Phenergan at home. She will follow-up with her primary care physician. Treatment Plan: [] See above. Disposition: [] Discharge, stable. Impression: [] Nausea and vomiting Gastroparesis This note was generated with [employer] dictation software. It may contain incorrect words, spelling, and punctuation that were not noted in review of the chart prior to signing ED Disposition - Plan for ED Patient: Chief Complaint: Nausea/Vomiting Referrals: Devan Parks [Primary Care Provider] -
--- NOTE | 2017-11-24 22:01 | ED.DEP ---
ED Disposition - Plan for ED Patient: Disposition: Home or Assisted Living Chief Complaint: Nausea/Vomiting Instructions: ED Nausea Vomiting, ED Diabetic Gastroparesis Referrals: Devan Parks [Primary Care Provider] -
[2017-11-24 22:14] VITALS: BP 147/87; PULSE 84; RESP 18; O2SAT 100
== END 2017-11-24 22:15 | disposition home or self-care (01) ==
PROVIDERS: Emergency Provider Emergency Medicine; Family Provider Family Medicine; PCP Family Medicine
DX: R11.2 Nausea with vomiting, unspecified (principal); E11.43 Type 2 diabetes mellitus with diabetic autonomic (poly)neuropathy; K31.84 Gastroparesis; E66.9 Obesity, unspecified; E78.00 Pure hypercholesterolemia, unspecified; M79.7 Fibromyalgia; G25.81 Restless legs syndrome; Z86.79 Personal history of other diseases of the circulatory system; Z90.89 Acquired absence of other organs; Z90.49 Acquired absence of other specified parts of digestive tract; Z79.82 Long term (current) use of aspirin; Z79.4 Long term (current) use of insulin; Z79.899 Other long term (current) drug therapy
CPT/HCPCS: 80048; 96361; 96374; 99283; J7030

== ENCOUNTER 2017-12-05 19:27 | Emergency (ER) | payer MEDICARE, SELFPAY ==
[2017-12-05 19:28] VITALS: BP 152/115; PULSE 78; RESP 19; TEMP 36.4; O2SAT 94; BMI 40.3
--- NOTE | 2017-12-05 19:56 | EKG12_ITS ---
Test Reason : Blood Pressure : / mmHG Vent. Rate : 076 BPM Atrial Rate : 076 BPM P-R Int : 096 ms QRS Dur : 090 ms QT Int : 446 ms P-R-T Axes : 000 -28 025 degrees QTc Int : 501 ms Sinus rhythm Leftward axis Poor R wave progression Prolonged QT Abnormal ECG Confirmed by JOSE MANUEL CURRY, SHAHIDA ([id number]), food editor MAIKEL MULLEN ([id number]) on 12/09/2017 3:15:36 PM Referred By: BENI Confirmed By:SHAHIDA RICHARD MD
--- NOTE | 2017-12-05 20:00 | RAD_ITS ---
STUDY: X-RAY CHEST REASON FOR EXAM: Female, 62 years old. Shortness of breath for 2 weeks. TECHNIQUE: Single AP portable view of the chest. COMPARISON: 11 June 2017 FINDINGS: The lungs are clear and expanded. There is no demonstrated pleural abnormality. Normal size heart. Normal mediastinum and judith. Normal visualized pulmonary arteries. Normal visualized aortic arch and descending thoracic aorta. Normal visualized thoracic spine. Normal visualized ribs, clavicles, and shoulders. There is no demonstrated abnormality of the visualized soft tissue structures of the upper abdomen. RAD/Chest 1 View (Portable) IMPRESSION: No evidence of acute cardiopulmonary process. Electronically Signed: Jacob Amaral DO at 20:21 EDT , Service support ,
[2017-12-05] MEDS: 0.9% Normal Saline 1,000 ML 150 ML IV (20:13)
[2017-12-05] MEDS: Ipratropium/Albuterol Sulfate 3 ML AMPUL.NEB INHALATION (20:19)
[2017-12-05 20:23] LABS: Absolute Lymphocyte Count 2.39 X10^3/ul (0.83-4.51); Absolute Neutrophil Count 7.8 X10^3/uL (2.0-7.7); Basophil# 0.03 X10^3/uL; Basophil% 0.3 % (0-1); Eosinophil# 0.19 X10^3/uL; Eosinophils% 1.7 % (0-5); Hematocrit 38.8 % (37-47); Hemoglobin 12.7 g/dl (12.0-15.0); Lymphocyte # 2.39 X10^3/ul (4.0); Lymphocyte % 21.6 % (19-41); Mean Corp Hgb Conc 32.7 g/gl (32-36); Mean Corpuscular Hgb 25.2 pg (27.0-32.0); Mean Platelet Vol. 9.4 fl (6.2-12.0); Monocyte# 0.64 X10^3/uL; Monocyte% 5.8 % (0-10); Neutrophil # 7.82 X10^3/uL (2.7-7.7); Neutrophil % 70.5 % (47-70); Platelet Count 325 K/mm3 (150-450); RBC Distribution Width CV 15.5 % (11.6-14.6); RBC Distribution Width SD 43.2 fl (35.1-43.9); Red Blood Count 5.04 M/mm3 (4.2-5.4); White Blood Count 11.1 K/mm3 (4.4-11.0)
[2017-12-05 20:24] LABS: POSITIVE COUNT NO; POSITIVE DIFFERENTIAL NO; POSITIVE MORPHOLOGY NO
[2017-12-05 20:39] LABS: Anion Gap 7 (5-15); BUN 31 mg/dL (7-18); BUN/Creat Ratio 22.5 RATIO (10-20); Calcium,Total 8.8 mg/dL (8.5-10.1); Chloride 93 mmol/L (98-107); Creatinine, Serum 1.38 mg/dL (0.55-1.02); EST Glomerular Filtration Rate 41 mL/min (>60); Est Glom Filt Rate - Afr Amer 50 mL/min (>60); Estimated Creatinine Clearance 39.06 ml/min; Glucose 332 mg/dL (74-106); Potassium 4.1 mmol/L (3.5-5.1); Sodium Level 132 mmol/L (136-145)
[2017-12-05 20:56] LABS: BNP,B-Type NATRIURETIC PEPTIDE 20.4 pg/mL (0-100)
--- NOTE | 2017-12-05 20:56 | ED.VISSUMM ---
- ER Visit Summary Date of Service: 12/05/17 Chief Complaint: [] sob of breath nausea for about a week History of Present Illness: The patient is a 62 F [] reports shortness of breath and nausea for about a week she was seen by her physicians there was a concern she would gain weight and she might be developing CHF she has diabetes and gastroparesis she has no history of UT PE or DVT, she indicates her shortness of breath have persisted she came in for evaluation she is having normal bowel bladder habits no fever no cough, the Lasix has not resulted in her losing weight or any increased urinary output Her chief complaint is actually that she is very nauseated she feels of her gastroparesis has been exacerbated for unspecified reasons she has been evaluated extensively for the gastroparesis and she is under the care of a wheel and axle inspector Physical Examination: [] She is in no distress her vital signs are all within normal range her nose is clear her throat is clear her neck is supple her lungs sound clear heart tones sound regular the abdomen is obese but soft and nontender upper lower extremities unremarkable neurologically she is awake alert moving all 4 Test Results: [] Emergency Department Course and Treatment: [] EKG shows a sinus rhythm her vitals are normal screening labs are obtained Labs are generally unremarkable see those reports, EKG nothing acute her glucose is 330 there is no signs of DKA I want to reassess her she received IV fluids IV Zofran she is feeling better I discussed with her that if she was not feeling well we can arrange for admission but she states she felt much better she wanted to go home I asked her to stay on a bland fluid E diet, follow-up with her wheel and axle inspector for her gastroparesis and her physicians for other conditions and return for change in symptoms Treatment Plan: [] Disposition: [] Home stable declined admission Impression: [] Nausea suspect related to gastroparesis diabetes, nonspecific shortness of breath for weeks This note was generated with [employer] dictation software. It may contain incorrect words, spelling, and punctuation that were not noted in review of the chart prior to signing ED Disposition - Plan for ED Patient: Chief Complaint: Shortness of Breath Referrals: Devan Parks [Primary Care Provider] -
[2017-12-05 21:57] LABS: D-Dimer Quantitative (DVT/PE) 0.45 FEU/ug/m (0.27-0.49)
--- NOTE | 2017-12-05 22:00 | ED.DEP ---
ED Disposition - Plan for ED Patient: Chief Complaint: Shortness of Breath Instructions: Gastroparesis Referrals: Devan Parks [Primary Care Provider] -
[2017-12-05] MEDS: Ondansetron 4 MG/2 ML Vial IV (22:07)
[2017-12-05 22:27] VITALS: BP 108/59; PULSE 76; RESP 18; O2SAT 94
--- NOTE | 2017-12-05 23:06 | ED.DEP ---
ED Disposition - Plan for ED Patient: Chief Complaint: Shortness of Breath Instructions: Gastroparesis Prescriptions: Ondansetron HCl [Zofran] 4 mg PO Q6H PRN #10 tab Referrals: Devan Parks [Primary Care Provider] -
== END 2017-12-05 23:15 | disposition home or self-care (01) ==
PROVIDERS: Emergency Provider Emergency Medicine; Family Provider Family Medicine; PCP Family Medicine
DX: R11.0 Nausea (principal); E11.43 Type 2 diabetes mellitus with diabetic autonomic (poly)neuropathy; K31.84 Gastroparesis; R06.00 Dyspnea, unspecified; I50.9 Heart failure, unspecified; Z79.82 Long term (current) use of aspirin; Z79.4 Long term (current) use of insulin; Z79.899 Other long term (current) drug therapy
CPT/HCPCS: 71045; 80048; 83880; 84484; 85025; 85379; 87804; 93005; 94640; 96361; 96374; 99285; J7030; J7040; J2405

== ENCOUNTER 2017-12-11 15:41 | Emergency (ER) | payer MEDICARE, SELFPAY ==
[2017-12-11 15:42] VITALS: BP 160/97; PULSE 81; RESP 18; TEMP 36.4; O2SAT 96; BMI 40.3
[2017-12-11 16:46] LABS: Anion Gap 7 (5-15); BUN 16 mg/dL (7-18); BUN/Creat Ratio 12.1 RATIO (10-20); Calcium,Total 9.3 mg/dL (8.5-10.1); Chloride 95 mmol/L (98-107); Creatinine, Serum 1.32 mg/dL (0.55-1.02); EST Glomerular Filtration Rate 43 mL/min (>60); Est Glom Filt Rate - Afr Amer 52 mL/min (>60); Estimated Creatinine Clearance 40.84 ml/min; Glucose 179 mg/dL (74-106); Potassium 4.3 mmol/L (3.5-5.1); Sodium Level 133 mmol/L (136-145)
[2017-12-11] MEDS: Metoclopramide 10 MG/2 ML Vial IV (17:02)
--- NOTE | 2017-12-11 17:32 | ED.RN ---
pt given a small amount of water to drink. had a small to medium amount of green liquid emesis.
[2017-12-11] MEDS: proMETHazine 25 MG/ML Syringe 6.25 MG IV (17:44)
[2017-12-11 18:36] VITALS: BP 155/76; PULSE 70; RESP 18; O2SAT 97
--- NOTE | 2017-12-11 19:45 | ED.VISSUMM ---
- ER Visit Summary Date of Service: 12/11/17 Chief Complaint: Nausea and vomiting History of Present Illness: The patient is a 62 F with history of gastroparesis who presents with nausea and dry heaves. This is a chronic issue. She states that her symptoms are worse. She is on antiemetic at home. She has had no relief. She is uncertain whether she has had decreased urine output. She denies diarrhea. She denies fever, chills night sweats. Denies weight gain weight loss. She denies any ocular, visual auditory symptoms. She denies any cardiac respiratory symptoms. She denies any urologic symptoms. Denies myalgias arthralgias. Physical Examination: Vital signs are marked for an elevated blood pressure 160/97. BMI is 40.4. HEENT exam is remarkable dry mucosa. Heart is regular without murmur, gallop or rub. S1 and S2 are normal. Lungs are clear to auscultation with good movement of air bilaterally. Abdomen is soft with minimal tenderness to deep palpation at best. The remainder of her abdominal exam is unremarkable. She is alert oriented with nonfocal neurologic exam. She does have depressed affect. Test Results: Electrode panels marked for glucose of 179 with a BUN and creatinine of 16 and 1.32 respectively. GFR is 43. This is approximately baseline. Emergency Department Course and Treatment: IV was established she received IV fluids. She initially was given 10 of Reglan without improvement. She then was given 625 mg of promethazine and has passed p.o. challenge. Treatment Plan: Follow-up with PCP Disposition: Discharged home in stable improved condition Impression: 1. Nausea and vomiting secondary gastroparesis 2. Mild dehydration 3. Hyperglycemia type II diabetic 4. Renal insufficiency This note was generated with [employer] dictation software. It may contain incorrect words, spelling, and punctuation that were not noted in review of the chart prior to signing ED Disposition - Plan for ED Patient: Disposition: Home or Assisted Living Chief Complaint: Nausea/Vomiting Instructions: Gastroparesis Referrals: Devan Parks MD [Primary Care Provider] - As Needed
--- NOTE | 2017-12-11 19:49 | ED.DCSUM_ITS ---
- ER Visit Summary Date of Service: 12/11/17 Chief Complaint: Nausea and vomiting History of Present Illness: The patient is a 62 F with history of gastroparesis who presents with nausea and dry heaves. This is a chronic issue. She states that her symptoms are worse. She is on antiemetic at home. She has had no relief. She is uncertain whether she has had decreased urine output. She denies diarrhea. She denies fever, chills night sweats. Denies weight gain weight loss. She denies any ocular, visual auditory symptoms. She denies any cardiac respiratory symptoms. She denies any urologic symptoms. Denies myalgias arthralgias. Physical Examination: Vital signs are marked for an elevated blood pressure 160/ 97. BMI is 40.4. HEENT exam is remarkable dry mucosa. Heart is regular without murmur, gallop or rub. S1 and S2 are normal. Lungs are clear to auscultation with good movement of air bilaterally. Abdomen is soft with minimal tenderness to deep palpation at best. The remainder of her abdominal exam is unremarkable. She is alert oriented with nonfocal neurologic exam. She does have depressed affect. Test Results: Electrode panels marked for glucose of 179 with a BUN and creatinine of 16 and 1.32 respectively. GFR is 43. This is approximately baseline. Emergency Department Course and Treatment: IV was established she received IV fluids. She initially was given 10 of Reglan without improvement. She then was given 625 mg of promethazine and has passed p.o. challenge. Treatment Plan: Follow-up with PCP Disposition: Discharged home in stable improved condition Impression: 1. Nausea and vomiting secondary gastroparesis 2. Mild dehydration 3. Hyperglycemia type II diabetic 4. Renal insufficiency This note was generated with [employer] dictation software. It may contain incorrect words, spelling, and punctuation that were not noted in review of the chart prior to signing ED Disposition - Plan for ED Patient: Disposition: Home or Assisted Living Chief Complaint: Nausea/Vomiting Instructions: Gastroparesis Referrals: Devan Parks MD [Primary Care Provider] - As Needed
--- NOTE | 2017-12-11 19:52 | ED.VISSUMM ---
- ER Visit Summary Date of Service: 12/11/17 Chief Complaint: [] History of Present Illness: The patient is a 62 F [] Physical Examination: [] Test Results: [] Emergency Department Course and Treatment: [] Treatment Plan: [] Disposition: [] Impression: [] This note was generated with [employer] dictation software. It may contain incorrect words, spelling, and punctuation that were not noted in review of the chart prior to signing ED Disposition - Plan for ED Patient: Disposition: Home or Assisted Living Chief Complaint: Nausea/Vomiting Instructions: Gastroparesis, ED Diabetic Gastroparesis Referrals: Devan Parks MD [Primary Care Provider] - As Needed
[2017-12-11 20:02] VITALS: BP 146/68; PULSE 67; PULSE 72; O2SAT 95
== END 2017-12-11 20:16 | disposition home or self-care (01) ==
PROVIDERS: Emergency Provider Emergency Medicine; Family Provider Family Medicine; PCP Family Medicine
DX: R11.2 Nausea with vomiting, unspecified (principal); E11.43 Type 2 diabetes mellitus with diabetic autonomic (poly)neuropathy; K31.84 Gastroparesis; E86.0 Dehydration; E11.65 Type 2 diabetes mellitus with hyperglycemia; N28.9 Disorder of kidney and ureter, unspecified; E66.9 Obesity, unspecified; Z68.41 Body mass index [BMI] 40.0-44.9, adult; K21.9 Gastro-esophageal reflux disease without esophagitis; E78.00 Pure hypercholesterolemia, unspecified; I10 Essential (primary) hypertension; G43.909 Migraine, unspecified, not intractable, without status migrainosus; M10.9 Gout, unspecified; G40.909 Epilepsy, unspecified, not intractable, without status epilepticus; Z86.73 Personal history of transient ischemic attack (TIA), and cerebral infarction without residual deficits; Z86.711 Personal history of pulmonary embolism; Z79.82 Long term (current) use of aspirin; Z79.4 Long term (current) use of insulin; Z79.899 Other long term (current) drug therapy
CPT/HCPCS: 80048; 96361; 96374; 96375; 99283; J7030; J7040; A4216

== ENCOUNTER 2017-12-16 18:50 | Emergency (ER) | payer MEDICARE, SELFPAY ==
[2017-12-16 18:51] VITALS: BP 176/102; PULSE 83; RESP 17; TEMP 35.9; O2SAT 97; BMI 40.3
[2017-12-16] MEDS: proMETHazine 25 MG/ML Syringe 12.5 MG IV (19:40)
[2017-12-16] MEDS: 0.9% Normal Saline 1,000 ML 1000 ML IV (19:40)
[2017-12-16 19:46] LABS: Absolute Lymphocyte Count 2.32 X10^3/ul (0.83-4.51); Absolute Neutrophil Count 9.8 X10^3/uL (2.0-7.7); Basophil# 0.04 X10^3/uL; Basophil% 0.3 % (0-1); Eosinophils% 2.3 % (0-5); Hematocrit 37.6 % (37-47); Hemoglobin 11.9 g/dl (12.0-15.0); Lymphocyte # 2.32 X10^3/ul (4.0); Lymphocyte % 17.5 % (19-41); Mean Corp Hgb Conc 31.6 g/gl (32-36); Mean Corpuscular Hgb 24.4 pg (27.0-32.0); Mean Platelet Vol. 9.3 fl (6.2-12.0); Monocyte# 0.74 X10^3/uL; Monocyte% 5.6 % (0-10); Neutrophil # 9.84 X10^3/uL (2.7-7.7); Neutrophil % 74.1 % (47-70); Platelet Count 328 K/mm3 (150-450); RBC Distribution Width CV 15.5 % (11.6-14.6); RBC Distribution Width SD 43.1 fl (35.1-43.9); Red Blood Count 4.88 M/mm3 (4.2-5.4); White Blood Count 13.3 K/mm3 (4.4-11.0)
[2017-12-16 19:48] LABS: POSITIVE COUNT NO; POSITIVE DIFFERENTIAL NO; POSITIVE MORPHOLOGY NO
[2017-12-16 19:57] LABS: Anion Gap 4 (5-15); BUN 14 mg/dL (7-18); Calcium,Total 9.2 mg/dL (8.5-10.1); Chloride 97 mmol/L (98-107); Creatinine, Serum 1.17 mg/dL (0.55-1.02); EST Glomerular Filtration Rate 50 mL/min (>60); Est Glom Filt Rate - Afr Amer 60 mL/min (>60); Estimated Creatinine Clearance 46.07 ml/min; Glucose 343 mg/dL (74-106); Potassium 4.3 mmol/L (3.5-5.1); Sodium Level 131 mmol/L (136-145)
[2017-12-16] MEDS: Metoclopramide 10 MG/2 ML Vial IV (21:17)
[2017-12-16 21:19] VITALS: BP 170/85; PULSE 68; RESP 12; O2SAT 93
[2017-12-16 21:54] VITALS: PULSE 64; RESP 22
--- NOTE | 2017-12-16 21:55 | ED.DCSUM_ITS ---
- ER Visit Summary Date of Service: 12/16/17 Chief Complaint: Nausea and vomiting History of Present Illness: The patient is a 62 F presenting for evaluation secondary nausea vomiting. Patient has an underlying history gastroparesis. Patient states that today she started vomiting. She states she had one episode of nonbloody nonbilious emesis. Denies any abdominal pain. She is concerned because she was unable to keep her Phenergan down at home, so she came to the emergency department. Physical Examination: Vital signs are within normal limits, patient is afebrile. General: Patient is well-nourished well-developed and in no acute distress. Head: Normocephalic, atraumatic Eyes: Pupils equal round and reactive bilaterally, extra occular motion intact bialterally ENT: Moist mucous membranes Neck: Supple, no lymphadenopathy, no JVD, no meningismus CVS: Heart regular rate and rhythm, no murmurs, rubs or gallops, radial pulses 2 + bilaterally Resp: Respirations nondistressed, lung sounds clear bilaterally Abdomen: Soft, nontender, nondistended, no palpable masses, normal bowel sounds Back: Nontender Extremities: Nontender, atraumatic, active full range of motion, no peripheral edema Skin: warm, no rashes, no petechia Neuro: Alert and oriented x 4, CN 2-12 intact, no lateralizing neurological defecits Psyc: Normal affect Test Results: CBC shows likely reactive leukocytosis 13.3, chemistry shows mild hyponatremia 131 Emergency Department Course and Treatment: Patient is well known to this department, and is presenting with her typical gastroparesis symptoms. She has normal vital signs, her laboratory workup is essentially unremarkable. Patient was treated with Phenergan and Reglan had symptomatic improvement on repeat evaluation at 2155. At this point I believe she can safely be discharged with continued home management. Disposition: Discharge Impression: 1. Gastroparesis This note was generated with [employer] dictation software. It may contain incorrect words, spelling, and punctuation that were not noted in review of the chart prior to signing ED Disposition - Plan for ED Patient: Disposition: Home or Assisted Living Chief Complaint: Nausea/Vomiting Diagnosis: Gastroparesis Instructions: ED Diabetic Gastroparesis Referrals: Devan Parks MD [Primary Care Provider] - As soon as possible
== END 2017-12-16 22:10 | disposition home or self-care (01) ==
PROVIDERS: Emergency Provider Emergency Medicine; Family Provider Family Medicine; PCP Family Medicine
DX: K31.84 Gastroparesis (principal); E87.1 Hypo-osmolality and hyponatremia; Z79.82 Long term (current) use of aspirin; Z79.899 Other long term (current) drug therapy
CPT/HCPCS: 80048; 85025; 96361; 96374; 96375; 99284; J7030; A4216

== ENCOUNTER 2017-12-28 21:02 | Emergency (ER) | payer MEDICARE, SELFPAY ==
[2017-12-28 21:04] VITALS: BP 205/103; PULSE 107; RESP 16; TEMP 36.8; O2SAT 97; BMI 40.3
[2017-12-28] MEDS: 0.9% Normal Saline 1,000 ML 1000 ML IV (22:02)
[2017-12-28] MEDS: Metoclopramide 10 MG/2 ML Vial IV (22:02)
[2017-12-28 22:18] LABS: Absolute Lymphocyte Count 2.28 X10^3/ul (0.83-4.51); Absolute Neutrophil Count 10.4 X10^3/uL (2.0-7.7); Basophil# 0.03 X10^3/uL; Basophil% 0.2 % (0-1); Eosinophil# 0.31 X10^3/uL; Eosinophils% 2.2 % (0-5); Hematocrit 37.5 % (37-47); Hemoglobin 11.8 g/dl (12.0-15.0); Lymphocyte # 2.28 X10^3/ul (4.0); Lymphocyte % 16.3 % (19-41); Mean Corp Hgb Conc 31.5 g/gl (32-36); Mean Corpuscular Hgb 24.7 pg (27.0-32.0); Mean Corpuscular Volume 78.5 fL (81-99); Mean Platelet Vol. 8.9 fl (6.2-12.0); Monocyte# 0.91 X10^3/uL; Monocyte% 6.5 % (0-10); Neutrophil # 10.43 X10^3/uL (2.7-7.7); Neutrophil % 74.7 % (47-70); POSITIVE COUNT NO; POSITIVE DIFFERENTIAL NO; POSITIVE MORPHOLOGY NO; Platelet Count 324 K/mm3 (150-450); RBC Distribution Width CV 15.6 % (11.6-14.6); RBC Distribution Width SD 44.7 fl (35.1-43.9); Red Blood Count 4.78 M/mm3 (4.2-5.4)
[2017-12-28 22:39] LABS: ALB/GLOB Ratio 0.7 RATIO (0.9-2.4); AST(SGOT) 43 U/L (15-37); Alanine Aminotransfer ALT/SGPT 35 U/L (13-56); Albumin, Serum 3.1 g/dL (3.2-5.0); Alkaline Phosphatase 200 U/L (45-117); Anion Gap 7 (5-15); BUN 12 mg/dL (7-18); BUN/Creat Ratio 10.8 RATIO (10-20); Calcium,Total 8.7 mg/dL (8.5-10.1); Chloride 101 mmol/L (98-107); Creatinine, Serum 1.11 mg/dL (0.55-1.02); EST Glomerular Filtration Rate 53 mL/min (>60); Est Glom Filt Rate - Afr Amer 64 mL/min (>60); Estimated Creatinine Clearance 48.56 ml/min; Globulin 4.3 g/dL (2.2-4.2); Glucose 214 mg/dL (74-106); Lipase 96 U/L (73-393); Potassium 3.9 mmol/L (3.5-5.1); Protein, Total 7.4 g/dL (6.4-8.2); Sodium Level 135 mmol/L (136-145)
[2017-12-28] MEDS: Ondansetron 4 MG/2 ML Vial IV (23:02)
[2017-12-28 23:04] VITALS: BP 150/62; PULSE 75; RESP 16; O2SAT 95
--- NOTE | 2017-12-28 23:27 | ED.DCSUM_ITS ---
- ER Visit Summary Date of Service: 12/28/17 Chief Complaint: Nausea and vomiting History of Present Illness: The patient is a 62 F who presents with nausea and vomiting. She has a history of gastroparesis. She has had multiple similar presentations. Usually she is able to have her symptoms controlled with medications and be able to be discharged home. She states over the last 3 days she has had several episodes of nonbloody nonbilious emesis similar to prior exacerbations of her gastroparesis. She has belching. She continues to have flatus. She denies diarrhea or abdominal pain. No fevers. Physical Examination: Initial blood pressure 205/103 heart rate 107 vitals otherwise unremarkable Patient resting comfortably in no distress Moist mucous membranes Heart regular rhythm tachycardia Lungs are clear Abdomen soft nontender nondistended and has normal bowel sounds Test Results: Laboratory studies notable for white blood cell count 14,000, alkaline phosphatase 200, AST 43. Emergency Department Course and Treatment: Patient was symptomatically treated with IV fluids and Reglan. She has mild elevations of her alk phos AST and white blood cell count which on review of prior labs does appear similar. She reports improvement but still slightly nauseated on reevaluation was given Zofran. After that she did tolerate a p.o. challenge. She feels well enough to go home. Her repeat blood pressure is also significantly improved. She understands return for new or worsening symptoms all questions were answered bedside she is comfortable with the plan was discharged. Treatment Plan: [] Disposition: Discharge Impression: Vomiting Gastroparesis This note was generated with [employer] dictation software. It may contain incorrect words, spelling, and punctuation that were not noted in review of the chart prior to signing ED Disposition - Plan for ED Patient: Chief Complaint: Nausea/Vomiting Referrals: Devan Parks MD [Primary Care Provider] -
--- NOTE | 2017-12-28 23:27 | ED.DEP ---
ED Disposition - Plan for ED Patient: Chief Complaint: Nausea/Vomiting Instructions: ED Nausea Vomiting, Gastroparesis Referrals: Devan Parks MD [Primary Care Provider] -
== END 2017-12-28 23:36 | disposition home or self-care (01) ==
PROVIDERS: Emergency Provider Emergency Medicine; Family Provider Family Medicine; PCP Family Medicine
DX: E11.43 Type 2 diabetes mellitus with diabetic autonomic (poly)neuropathy (principal); K31.84 Gastroparesis; R11.10 Vomiting, unspecified; K21.9 Gastro-esophageal reflux disease without esophagitis; I10 Essential (primary) hypertension; E78.00 Pure hypercholesterolemia, unspecified; E03.9 Hypothyroidism, unspecified; Z90.89 Acquired absence of other organs; Z90.49 Acquired absence of other specified parts of digestive tract; Z79.82 Long term (current) use of aspirin; Z79.4 Long term (current) use of insulin; Z79.899 Other long term (current) drug therapy
CPT/HCPCS: 80053; 83690; 85025; 96361; 96374; 96375; 99284; J7030; J2405

== ENCOUNTER 2018-01-07 08:34 | Emergency (ER) | payer MEDICARE, SELFPAY ==
[2018-01-07 08:35] VITALS: BP 168/120; PULSE 95; RESP 20; TEMP 36.9; O2SAT 95; BMI 40.3
[2018-01-07 09:08] LABS: Absolute Lymphocyte Count 2.49 X10^3/ul (0.83-4.51); Basophil# 0.07 X10^3/uL; Basophil% 0.7 % (0-1); Eosinophil# 0.28 X10^3/uL; Eosinophils% 2.6 % (0-5); Hematocrit 39.6 % (37-47); Lymphocyte # 2.49 X10^3/ul (4.0); Lymphocyte % 23.3 % (19-41); Mean Corp Hgb Conc 32.8 g/gl (32-36); Mean Corpuscular Hgb 25.1 pg (27.0-32.0); Mean Corpuscular Volume 76.6 fL (81-99); Mean Platelet Vol. 9.7 fl (6.2-12.0); Monocyte# 0.84 X10^3/uL; Monocyte% 7.9 % (0-10); Neutrophil # 6.96 X10^3/uL (2.7-7.7); Neutrophil % 65.1 % (47-70); Platelet Count 335 K/mm3 (150-450); RBC Distribution Width CV 15.8 % (11.6-14.6); RBC Distribution Width SD 43.5 fl (35.1-43.9); Red Blood Count 5.17 M/mm3 (4.2-5.4); White Blood Count 10.7 K/mm3 (4.4-11.0)
[2018-01-07 09:09] LABS: POSITIVE COUNT NO; POSITIVE DIFFERENTIAL NO; POSITIVE MORPHOLOGY NO
[2018-01-07] MEDS: 0.9% Normal Saline 1,000 ML 1000 ML IV (09:17)
[2018-01-07] MEDS: Metoclopramide 10 MG/2 ML Vial IV (09:17)
[2018-01-07 09:28] LABS: ALB/GLOB Ratio 0.7 RATIO (0.9-2.4); AST(SGOT) 64 U/L (15-37); Alanine Aminotransfer ALT/SGPT 44 U/L (13-56); Albumin, Serum 3.2 g/dL (3.2-5.0); Alkaline Phosphatase 237 U/L (45-117); Anion Gap 9 (5-15); BUN 10 mg/dL (7-18); BUN/Creat Ratio 8.7 RATIO (10-20); Calcium,Total 9.3 mg/dL (8.5-10.1); Chloride 98 mmol/L (98-107); Creatinine, Serum 1.15 mg/dL (0.55-1.02); EST Glomerular Filtration Rate 51 mL/min (>60); Est Glom Filt Rate - Afr Amer 61 mL/min (>60); Estimated Creatinine Clearance 46.87 ml/min; Globulin 4.9 g/dL (2.2-4.2); Glucose 291 mg/dL (74-106); Lipase 123 U/L (73-393); Potassium 5.8 mmol/L (3.5-5.1); Protein, Total 8.1 g/dL (6.4-8.2); Sodium Level 133 mmol/L (136-145)
--- NOTE | 2018-01-07 11:23 | ED.RN ---
DR BAZAN NOTIFIED PT REQUESTING MORE NAUSEA MEDICATION
[2018-01-07 11:35] VITALS: BP 142/77; PULSE 81; RESP 16; O2SAT 97
[2018-01-07] MEDS: proMETHazine 25 MG/ML Syringe 12.5 MG IV (11:39)
--- NOTE | 2018-01-07 12:23 | ED.VISSUMM ---
- ER Visit Summary Date of Service: 01/07/18 Chief Complaint: Vomiting History of Present Illness: The patient is a 62 F is a history of gastroparesis as well as numerous emergency department visits for vomiting. She states this particular episode began last evening. She has been trying her oral home Phenergan. This has not been helpful. No fevers. Physical Examination: Afebrile vital signs are stable Gen: Well-nourished well-developed Head: Normocephalic atraumatic Eyes: Perrl EOMI ENT: TMs clear no rhinorrhea moist mucous membranes Neck: Supple no lymphadenopathy no JVD nontender CVS: Regular rate rhythm no murmurs normal S1-S2 Respiratory: No distress clear to auscultation bilaterally chest nontender Abdomen: Soft with tenderness to palpation without guarding or rebound nondistended normal bowel sounds no masses Back: Nontender Extremity: Nontender no edema Skin: Normal color no rash Neuro: alert orientated ?3 CN II-XII intact normal strength sensation reflexes gait cerebellar Psych: Normal affect normal mood Test Results: A 6 labs showed a creatinine 1.15. White count 10.7. Lipase 123. Emergency Department Course and Treatment: She received IV fluids and Reglan. She complained of some continued nausea received Phenergan. She states after that she is feels much improved. Patient to be discharged home to continue her chronic therapy Impression: 1. Gastroparesis 2. Vomiting This note was generated with [employer] dictation software. It may contain incorrect words, spelling, and punctuation that were not noted in review of the chart prior to signing ED Disposition - Plan for ED Patient: Disposition: Home or Assisted Living Chief Complaint: Nausea/Vomiting Instructions: ED Diabetic Gastroparesis Referrals: Devan Parks MD [Primary Care Provider] - 1-2 Days if not improving
[2018-01-07 12:48] VITALS: PULSE 82; RESP 14; O2SAT 98
== END 2018-01-07 12:48 | disposition home or self-care (01) ==
PROVIDERS: Emergency Provider Emergency Medicine; Family Provider Family Medicine; PCP Family Medicine
DX: E11.43 Type 2 diabetes mellitus with diabetic autonomic (poly)neuropathy (principal); K31.84 Gastroparesis; R11.10 Vomiting, unspecified; E66.9 Obesity, unspecified; Z86.73 Personal history of transient ischemic attack (TIA), and cerebral infarction without residual deficits; I10 Essential (primary) hypertension; E78.00 Pure hypercholesterolemia, unspecified; Z86.711 Personal history of pulmonary embolism; I48.0 Paroxysmal atrial fibrillation; Z90.89 Acquired absence of other organs; Z90.49 Acquired absence of other specified parts of digestive tract; Z79.82 Long term (current) use of aspirin; Z79.4 Long term (current) use of insulin; Z79.899 Other long term (current) drug therapy
CPT/HCPCS: 80053; 83690; 85025; 96361; 96374; 96375; 99283; J7030; A4216

== ENCOUNTER 2018-01-09 15:55 | Emergency (ER) | payer MEDICARE, SELFPAY ==
[2018-01-09 15:55] VITALS: BP 201/108; PULSE 105; RESP 16; TEMP 36.9; O2SAT 95; BMI 40.3
[2018-01-09] MEDS: Ondansetron 4 MG/2 ML Vial IV (16:27)
[2018-01-09] MEDS: 0.9% Normal Saline 1,000 ML 1000 ML IV (16:27)
[2018-01-09 16:29] LABS: Absolute Lymphocyte Count 2.07 X10^3/ul (0.83-4.51); Absolute Neutrophil Count 11.8 X10^3/uL (2.0-7.7); Basophil# 0.05 X10^3/uL; Basophil% 0.3 % (0-1); Eosinophil# 0.31 X10^3/uL; Hematocrit 37.5 % (37-47); Hemoglobin 11.8 g/dl (12.0-15.0); Lymphocyte # 2.07 X10^3/ul (4.0); Lymphocyte % 13.6 % (19-41); Mean Corp Hgb Conc 31.5 g/gl (32-36); Mean Corpuscular Hgb 24.3 pg (27.0-32.0); Mean Corpuscular Volume 77.2 fL (81-99); Mean Platelet Vol. 9.2 fl (6.2-12.0); Monocyte# 0.92 X10^3/uL; Monocyte% 6.1 % (0-10); Neutrophil % 77.8 % (47-70); POSITIVE COUNT NO; POSITIVE DIFFERENTIAL NO; POSITIVE MORPHOLOGY NO; Platelet Count 350 K/mm3 (150-450); RBC Distribution Width CV 15.7 % (11.6-14.6); RBC Distribution Width SD 43.8 fl (35.1-43.9); Red Blood Count 4.86 M/mm3 (4.2-5.4); White Blood Count 15.2 K/mm3 (4.4-11.0)
[2018-01-09 16:44] LABS: ALB/GLOB Ratio 0.8 RATIO (0.9-2.4); AST(SGOT) 45 U/L (15-37); Alanine Aminotransfer ALT/SGPT 37 U/L (13-56); Albumin, Serum 3.3 g/dL (3.2-5.0); Alkaline Phosphatase 203 U/L (45-117); Amylase 13 U/L (25-115); Anion Gap 9 (5-15); BUN 9 mg/dL (7-18); Calcium,Total 9.1 mg/dL (8.5-10.1); Chloride 100 mmol/L (98-107); Creatinine, Serum 1.12 mg/dL (0.55-1.02); EST Glomerular Filtration Rate 52 mL/min (>60); Est Glom Filt Rate - Afr Amer 63 mL/min (>60); Estimated Creatinine Clearance 48.13 ml/min; Globulin 4.1 g/dL (2.2-4.2); Glucose 292 mg/dL (74-106); Potassium 4.2 mmol/L (3.5-5.1); Protein, Total 7.4 g/dL (6.4-8.2); Sodium Level 137 mmol/L (136-145)
[2018-01-09 17:04] LABS: Bacteria 0 SEEN /hpf (None Seen); Mucous, Urine 0 SEEN /hpf (<or=2+); Red Blood Cells-Urine 0 SEEN /hpf (0-5); White Blood Cells 0 SEEN /hpf (0-5)
--- NOTE | 2018-01-09 17:08 | ED.VISSUMM ---
- ER Visit Summary Date of Service: 01/09/18 Chief Complaint: Nausea and vomiting History of Present Illness: The patient is a 62 F who presents with nausea and vomiting for the past 2 weeks. Patient states she has been seen here twice in the past 2 weeks for this. Patient states her primary care physician and hearing health technician are evaluating her for possible gastroparesis and/or an autoimmune disorder. Patient denies any hematemesis or coffee-ground emesis. Patient states her emesis is just stomach contents. Patient denies any diarrhea, melena, or hematochezia. Patient denies any dysuria hematuria. Patient denies any abdominal pain. Patient denies any flank pain. Physical Examination: Vital signs showed an elevated blood pressure of 201/108 and a mild tachycardia of 105. Remaining vital signs are stable. Patient is afebrile. Patient is in no acute distress. Oral mucosa is pink and slightly dry. Heart was regular rate and rhythm. Lungs are clear and equal bilaterally. There is good respiratory effort noted. Neck is supple. There is no JVD or lymphadenopathy noted. Abdomen is soft. Bowel sounds are normal. There is no tenderness. There is no guarding or rebound noted. Cranial nerves II through XII are intact. There are no focal motor or sensory deficits noted. The remaining physical exam is within normal limits. Test Results: CBC showed a mild leukocytosis of 15.1. This is likely due to the vomiting. Metabolic profile was essentially within normal limits. Urinalysis does not show any evidence of urinary tract infection. Emergency Department Course and Treatment: Patient was given a dose of Zofran here. Patient had no improvement with this. Patient was given a dose of Phenergan. Patient had mild improvement of her symptoms. Patient was given a repeat dose of Phenergan. Patient states she has Phenergan tablets and Phenergan suppositories at home. Patient was instructed to continue this. Patient was instructed to follow-up with her primary care physician and hearing health technician as scheduled. Patient understood and was agreeable with the plan. All questions were answered. Disposition: Discharged home Impression: Nausea and vomiting This note was generated with [employer] software. It may contain incorrect words, spelling, and punctuation that were not noted in review of the chart prior to signing ED Disposition - Plan for ED Patient: Disposition: Home or Assisted Living Chief Complaint: Nausea/Vomiting Diagnosis: Nausea and vomiting in adult Instructions: ED Nausea Vomiting Referrals: Devan Parks MD [Primary Care Provider] -
[2018-01-09 17:14] LABS: Color, Urine Yellow (Yellow); Glucose, Dipstick 250 mg/dl (Normal); Ketone-Dipstick Negative (Negative); Leukocyte Esterase-Dipstick Negative /ul (Negative); Nitrite-Dipstick Negative (Negative); Occult Blood-Urine Negative /ul (Negative); Protein-Dipstick 15 mg/dl (Negative); Urine Bilirubin Dipstick Negative (Negative); Urine Clarity Sl. Cloudy (Clear); Urine Urobilinogen Normal (Normal)
[2018-01-09 17:19] LABS: Squamous Epithelial Cells - UA 0-5 SEEN /hpf (5-10)
--- NOTE | 2018-01-09 17:21 | ED.DCSUM_ITS ---
- ER Visit Summary Date of Service: 01/09/18 Chief Complaint: Nausea and vomiting History of Present Illness: The patient is a 62 F who presents with nausea and vomiting for the past 2 weeks. Patient states she has been seen here twice in the past 2 weeks for this. Patient states her primary care physician and plasma processing centrifuge operator are evaluating her for possible gastroparesis and/or an autoimmune disorder. Patient denies any hematemesis or coffee-ground emesis. Patient states her emesis is just stomach contents. Patient denies any diarrhea , melena, or hematochezia. Patient denies any dysuria hematuria. Patient denies any abdominal pain. Patient denies any flank pain. Physical Examination: Vital signs showed an elevated blood pressure of 201/108 and a mild tachycardia of 105. Remaining vital signs are stable. Patient is afebrile. Patient is in no acute distress. Oral mucosa is pink and slightly dry. Heart was regular rate and rhythm. Lungs are clear and equal bilaterally. There is good respiratory effort noted. Neck is supple. There is no JVD or lymphadenopathy noted. Abdomen is soft. Bowel sounds are normal. There is no tenderness. There is no guarding or rebound noted. Cranial nerves II through XII are intact. There are no focal motor or sensory deficits noted. The remaining physical exam is within normal limits. Test Results: CBC showed a mild leukocytosis of 15.1. This is likely due to the vomiting. Metabolic profile was essentially within normal limits. Urinalysis does not show any evidence of urinary tract infection. Emergency Department Course and Treatment: Patient was given a dose of Zofran here. Patient had no improvement with this. Patient was given a dose of Phenergan. Patient had mild improvement of her symptoms. Patient was given a repeat dose of Phenergan. Patient states she has Phenergan tablets and Phenergan suppositories at home. Patient was instructed to continue this. Patient was instructed to follow-up with her primary care physician and plasma processing centrifuge operator as scheduled. Patient understood and was agreeable with the plan. All questions were answered. Disposition: Discharged home Impression: Nausea and vomiting This note was generated with [employer]ation software. It may contain incorrect words, spelling, and punctuation that were not noted in review of the chart prior to signing ED Disposition - Plan for ED Patient: Disposition: Home or Assisted Living Chief Complaint: Nausea/Vomiting Diagnosis: Nausea and vomiting in adult Instructions: ED Nausea Vomiting Referrals: Devan Parks MD [Primary Care Provider] -
[2018-01-09] MEDS: proMETHazine 25 MG/ML Syringe 6.25 MG IV (17:35)
[2018-01-09 17:55] VITALS: RESP 16
[2018-01-09] MEDS: Metoclopramide 10 MG/2 ML Vial IV (19:31)
[2018-01-09 19:34] VITALS: BP 143/103; PULSE 92; RESP 16; O2SAT 96
== END 2018-01-09 19:37 | disposition home or self-care (01) ==
PROVIDERS: Emergency Provider Emergency Medicine; Family Provider Family Medicine; PCP Family Medicine
DX: R11.2 Nausea with vomiting, unspecified (principal); E11.9 Type 2 diabetes mellitus without complications; I10 Essential (primary) hypertension; E78.00 Pure hypercholesterolemia, unspecified; M79.7 Fibromyalgia; Z90.89 Acquired absence of other organs; Z90.49 Acquired absence of other specified parts of digestive tract; Z79.4 Long term (current) use of insulin; Z79.82 Long term (current) use of aspirin; Z79.899 Other long term (current) drug therapy
CPT/HCPCS: 80053; 81001; 82150; 85025; 96361; 96374; 96375; 99283; J7030; A4216; J2405

== ENCOUNTER 2018-01-11 23:02 | Emergency (ER) | payer MEDICARE, SELFPAY ==
[2018-01-11 23:03] VITALS: BP 164/89; PULSE 92; RESP 15; TEMP 37.4; BMI 40.3
--- NOTE | 2018-01-11 23:27 | ED.VISSUMM ---
- ER Visit Summary Date of Service: 01/11/18 Chief Complaint: [] Nausea and vomiting History of Present Illness: The patient is a 62 F [] presents with nausea and vomiting beginning approximately 2 weeks ago. She reports is her fourth visit to this emergency department in the last 2 weeks for similar symptoms secondary to gastroparesis. She reports Reglan is the medication that helps her symptoms the most. Does report she has a history of diabetes hypertension, hypercholesteremia and fibromyalgia. Past surgical history of appendectomy, cholecystectomy. Reports her symptoms are consistent with previous bouts of gastroparesis. Denies hematemesis or fever. Physical Examination: [] Afebrile, vital signs stable. 62-year-old female in no acute distress. Cardiovascular exam is regular rate and rhythm. Lungs are clear to auscultation. Abdomen is soft and nontender. Test Results: [] CBC reveals elevated white blood cell count 16.8. BMP normal. LFTs normal. Alk phos mildly elevated 188. Emergency Department Course and Treatment: [] Patient given intravenous fluids, Reglan, Zofran. On serial exam she had resolution of symptoms and was amenable to discharge and follow-up. Treatment Plan: [] Follow-up with PCP. Disposition: [] Discharge, stable. Impression: [] Gastroparesis This note was generated with [employer] dictation software. It may contain incorrect words, spelling, and punctuation that were not noted in review of the chart prior to signing ED Disposition - Plan for ED Patient: Chief Complaint: Nausea/Vomiting Referrals: Devan Parks MD [Primary Care Provider] -
[2018-01-11] MEDS: Ondansetron 4 MG/2 ML Vial IV (23:57)
[2018-01-11] MEDS: Metoclopramide 10 MG/2 ML Vial IV (23:57)
[2018-01-11] MEDS: 0.9% Normal Saline 1,000 ML 1000 ML IV (23:57)
[2018-01-12 00:07] LABS: Absolute Lymphocyte Count 2.88 X10^3/ul (0.83-4.51); Absolute Neutrophil Count 12.3 X10^3/uL (2.0-7.7); Basophil# 0.04 X10^3/uL; Basophil% 0.2 % (0-1); Eosinophil# 0.37 X10^3/uL; Eosinophils% 2.2 % (0-5); Hemoglobin 12.6 g/dl (12.0-15.0); Lymphocyte # 2.88 X10^3/ul (4.0); Lymphocyte % 17.1 % (19-41); Mean Corp Hgb Conc 32.3 g/gl (32-36); Mean Corpuscular Hgb 24.9 pg (27.0-32.0); Mean Corpuscular Volume 77.1 fL (81-99); Mean Platelet Vol. 9.3 fl (6.2-12.0); Monocyte# 1.22 X10^3/uL; Monocyte% 7.3 % (0-10); Neutrophil # 12.26 X10^3/uL (2.7-7.7); Neutrophil % 72.9 % (47-70); POSITIVE COUNT NO; POSITIVE DIFFERENTIAL NO; POSITIVE MORPHOLOGY NO; Platelet Count 337 K/mm3 (150-450); RBC Distribution Width CV 15.9 % (11.6-14.6); RBC Distribution Width SD 44.1 fl (35.1-43.9); Red Blood Count 5.06 M/mm3 (4.2-5.4); White Blood Count 16.8 K/mm3 (4.4-11.0)
[2018-01-12 00:54] LABS: ALB/GLOB Ratio 0.8 RATIO (0.9-2.4); AST(SGOT) 43 U/L (15-37); Alanine Aminotransfer ALT/SGPT 35 U/L (13-56); Albumin, Serum 3.3 g/dL (3.2-5.0); Alkaline Phosphatase 188 U/L (45-117); Anion Gap 8 (5-15); BUN 9 mg/dL (7-18); BUN/Creat Ratio 8.7 RATIO (10-20); Calcium,Total 9.3 mg/dL (8.5-10.1); Chloride 102 mmol/L (98-107); Creatinine, Serum 1.03 mg/dL (0.55-1.02); EST Glomerular Filtration Rate 58 mL/min (>60); Est Glom Filt Rate - Afr Amer 70 mL/min (>60); Estimated Creatinine Clearance 52.34 ml/min; Globulin 4.3 g/dL (2.2-4.2); Glucose 140 mg/dL (74-106); Potassium 3.6 mmol/L (3.5-5.1); Protein, Total 7.6 g/dL (6.4-8.2); Sodium Level 137 mmol/L (136-145)
--- NOTE | 2018-01-12 01:17 | ED.DEP ---
ED Disposition - Plan for ED Patient: Disposition: Home or Assisted Living Chief Complaint: Nausea/Vomiting Instructions: ED Diabetic Gastroparesis Referrals: Devan Parks MD [Primary Care Provider] -
[2018-01-12 01:29] VITALS: BP 156/60; PULSE 76; RESP 18; O2SAT 95
== END 2018-01-12 01:30 | disposition home or self-care (01) ==
PROVIDERS: Emergency Provider Emergency Medicine; Family Provider Family Medicine; PCP Family Medicine
DX: E11.43 Type 2 diabetes mellitus with diabetic autonomic (poly)neuropathy (principal); K31.84 Gastroparesis; E66.9 Obesity, unspecified; I10 Essential (primary) hypertension; M79.7 Fibromyalgia; Z86.39 Personal history of other endocrine, nutritional and metabolic disease; Z90.89 Acquired absence of other organs; Z90.49 Acquired absence of other specified parts of digestive tract; Z79.4 Long term (current) use of insulin; Z79.82 Long term (current) use of aspirin; Z79.899 Other long term (current) drug therapy
CPT/HCPCS: 80053; 85025; 96361; 96374; 96375; 99284; J7030; J2405

== ENCOUNTER 2018-01-12 13:20 | Emergency (ER) | payer MEDICARE, SELFPAY ==
[2018-01-12 13:21] VITALS: BP 177/84; PULSE 85; RESP 16; TEMP 36.4; O2SAT 95; BMI 43.1
--- NOTE | 2018-01-12 14:38 | ED.DCSUM_ITS ---
History of Present Illness Chief Complaint: Nausea/Vomiting Informant: Patient Onset: Weeks - 2 Context: Gradual Onset Timing: Continuous Quality: non bilious, nonbloody emesis Current Severity: Moderate Maximum Severity: Moderate Relieved by: reglan last night when in ED Associated Symptoms: malaise. no pain, diarrhea, blood, pre-syncope Narrative: Has this intermittently with her diabetic gastroparesis. Was here last night for the same thing and felt better after Zofran and Reglan, but it returned when the medication were off and she has had trouble keeping down oral liquids since. She states none of these symptoms are new. Blood sugars have been in the 400 range. She does not recall getting treated for it last night other than fluids. Prior similar symptoms: Yes - Past Medical History (1) Benign essential HTN Status: Chronic (2) DM2 (diabetes mellitus, type 2) Status: Chronic (3) Depression Status: Chronic (4) Diverticulosis Status: Chronic (5) GERD (gastroesophageal reflux disease) Status: Chronic (6) HLD (hyperlipidemia) Status: Chronic (7) History of CVA (cerebrovascular accident) Status: Chronic (8) Hyperuricemia Status: Chronic (9) Iron deficiency anemia Status: Chronic (10) Migraine headache Status: Chronic (11) Paroxysmal atrial fibrillation Status: Chronic (12) Restless leg Status: Chronic (13) Takotsubo cardiomyopathy Status: Chronic (14) Seizure disorder Status: Chronic (15) Fibromyalgia Status: Chronic (16) Diabetic gastroparesis Status: Chronic Past Medical History - Allergies and Home Meds Allergies/Adverse Reactions: Allergies ciprofloxacin [From Cipro] Allergy (Verified 01/11/18 23:07) Shortness of breath ciprofloxacin HCl [From Cipro] Allergy (Verified 01/11/18 23:07) Shortness of breath cyclobenzaprine HCl [From Flexeril] Allergy (Verified 01/11/18 23:07) Rash ketorolac tromethamine [From Toradol] Allergy (Verified 01/11/18 23:07) Chest tightness sulfamethoxazole [From Bactrim] Allergy (Verified 01/11/18 23:07) Itching trimethoprim [From Bactrim] Allergy (Verified 01/11/18 23:07) Itching metformin Adverse Reaction (Verified 01/11/18 23:07) Other headache valacyclovir HCl [From Valtrex] Adverse Reaction (Verified 01/11/18 23:07) Other Home Medications: Home Medications Medication Instructions Recorded Allopurinol [Zyloprim] 100 mg PO DAILYCM 05/07/16 Aspirin [Aspirin, Baby] 81 mg PO DAILY 05/07/16 Montelukast [Singulair] 10 mg PO DAILY 05/07/16 Omeprazole [Prilosec] 40 mg PO DAILY 05/07/16 Ropinirole HCl [Requip] 1 mg PO QHS 05/07/16 Simvastatin [Zocor] 40 mg PO QHS 05/07/16 Insulin Lispro [Humalog Kwikpen] 20 - 40 unit SQ TIDCM 01/10/17 Levothyroxine [Synthroid] 75 mcg PO DAILY 02/25/17 Pregabalin [Lyrica] 150 mg PO BID 02/25/17 Insulin Degludec [Tresiba 200 unit SQ DAILY 04/02/17 Flextouch U-100] Hydrocodone/Acetaminophen 1 each PO Q6H PRN PRN 06/01/17 [Hydrocodone-Acetamin 5-325 mg] morphine SR tablet [Ms Contin] 15 mg PO Q12H 06/01/17 Lamotrigine 100 mg PO BID 12/05/17 Valsartan 80 mg PO DAILY 12/05/17 proMETHazine tablet [Phenergan] 25 mg PO TID PRN PRN 12/05/17 Metoclopramide [Reglan] 10 mg PO 4X/DAY PRN #20 tab 01/12/18 Primary Care Physician: Devan Parks MD [Primary Care Provider] - Surgical History: appendectomy, cholecystectomy Smoking Status: Never smoker - Family History Paternal Family History: Reports: Heart Disease, - - Bone cancer Maternal Family History: Reports: COPD, Diabetes, Heart Disease, - - Smoker Review of Systems All systems negative except as indicated General: Reports: Malaise. Denies: Fever Gastrointestinal: Reports: Nausea, Vomiting. Denies: Abdominal pain, Diarrhea, Melena, Hematochezia Physical Exam Vital Signs/Narrative: Vital Signs Temp Pulse Resp BP Pulse Ox 01/12/18 13:21 97.5 F L 85 16 177/84 H 95 Inital Vital Signs reviewed: Yes General: Well nourished, Well developed, Obese, - - nad Head: Normocephalic, Atraumatic Eyes: Perrl, EOMI ENT: Moist mucous membranes, No rhinorrhea Neck: Supple, Nontender Cardiovascular: Regular rate, Regular rhythm, No murmurs Respiratory: No distress, CTA bilaterally, Chest nontender Abdomen: Soft, Nontender, Nondistended, Hypoactive bowel sounds Extremities: Nontender, No edema Skin: Normal color, No rash Neurological: Alert, Oriented x3, Cranial nerves II-XII grossly intact, Normal Strength, Normal Sensation Psychological: Normal affect Diagnostic/Tx/Re-eval Laboratory Tests 01/12/18 01/12/18 15:20 15:20 WBC 13.2 H RBC 4.92 Hgb 12.1 Hct 38.2 MCV 77.6 L MCH 24.6 L MCHC 31.7 L RDW 15.8 H RDW Differential 44.4 H Plt Count 335 MPV 9.4 Immature Gran % (Auto) 0.400 Neut % (Auto) 75.7 H Lymph % (Auto) 16.3 L [place] % (Auto) 5.4 Eos % (Auto) 1.9 Baso % (Auto) 0.3 Absolute Neuts (auto) 10.0 H Absolute Lymphs (auto) 2.16 Total Counted Not Reportable Sodium 138 Potassium 4.1 Chloride 102 Carbon Dioxide 30.0 Anion Gap 6 BUN 10 Creatinine 1.06 H Estim Creat Clear Calc 50.85 Est GFR (MDRD) Af Amer 67 Est GFR (MDRD) Non-Af 56 L BUN/Creatinine Ratio 9.4 L Glucose 170 H Calcium 9.4 - Medical Decision Making Patient was initially given IV fluids and Reglan, she felt a little better but like she could use more antinausea medicine. Therefore, she was given Haldol, Ativan, Zofran. She feels better like she could keep some fluids down. She is given a p.o. fluid challenge and is requesting a prescription for Reglan to use as needed at home which I think is reasonable. She has a long-standing history of diabetic gastroparesis that causes the symptoms, her labs today look reasonable, she has a mild nonspecific leukocytosis that is improved compared with before, this past week, and her blood sugars 107 with normal renal function in the electronic disturbance. ED Disposition - Plan for ED Patient: Disposition: Home or Assisted Living Chief Complaint: Nausea/Vomiting Diagnosis: Diabetic gastroparesis, Vomiting with nausea, not intractable Instructions: ED Nausea Vomiting Prescriptions: Metoclopramide [Reglan] 10 mg PO 4X/DAY PRN #20 tab PRN Reason: Nausea Referrals: Devan Parks MD [Primary Care Provider] - 3-5 Days if not improving
[2018-01-12] MEDS: Metoclopramide 10 MG/2 ML Vial IV (15:21)
[2018-01-12 15:40] LABS: Absolute Lymphocyte Count 2.16 X10^3/ul (0.83-4.51); Basophil# 0.04 X10^3/uL; Basophil% 0.3 % (0-1); Eosinophil# 0.25 X10^3/uL; Eosinophils% 1.9 % (0-5); Hematocrit 38.2 % (37-47); Hemoglobin 12.1 g/dl (12.0-15.0); Lymphocyte # 2.16 X10^3/ul (4.0); Lymphocyte % 16.3 % (19-41); Mean Corp Hgb Conc 31.7 g/gl (32-36); Mean Corpuscular Hgb 24.6 pg (27.0-32.0); Mean Corpuscular Volume 77.6 fL (81-99); Mean Platelet Vol. 9.4 fl (6.2-12.0); Monocyte# 0.71 X10^3/uL; Monocyte% 5.4 % (0-10); Neutrophil # 10.01 X10^3/uL (2.7-7.7); Neutrophil % 75.7 % (47-70); Platelet Count 335 K/mm3 (150-450); RBC Distribution Width CV 15.8 % (11.6-14.6); RBC Distribution Width SD 44.4 fl (35.1-43.9); Red Blood Count 4.92 M/mm3 (4.2-5.4); White Blood Count 13.2 K/mm3 (4.4-11.0)
[2018-01-12 15:56] LABS: Anion Gap 6 (5-15); BUN 10 mg/dL (7-18); BUN/Creat Ratio 9.4 RATIO (10-20); Calcium,Total 9.4 mg/dL (8.5-10.1); Chloride 102 mmol/L (98-107); Creatinine, Serum 1.06 mg/dL (0.55-1.02); EST Glomerular Filtration Rate 56 mL/min (>60); Est Glom Filt Rate - Afr Amer 67 mL/min (>60); Estimated Creatinine Clearance 50.85 ml/min; Glucose 170 mg/dL (74-106); Potassium 4.1 mmol/L (3.5-5.1); Sodium Level 138 mmol/L (136-145)
[2018-01-12 15:57] LABS: POSITIVE COUNT NO; POSITIVE DIFFERENTIAL NO; POSITIVE MORPHOLOGY NO
[2018-01-12] MEDS: Ondansetron 4 MG/2 ML Vial IV (16:40)
[2018-01-12] MEDS: Haloperidol Lactate 5 MG/ML Vial 1 MG IV (16:41)
[2018-01-12] MEDS: LORazepam 2 MG/ML Syringe 1 MG IV (16:41)
[2018-01-12 17:46] VITALS: BP 173/94; PULSE 98; RESP 15; O2SAT 98
--- NOTE | 2018-01-12 17:47 | ED.RN ---
pt given written and verbal discharge instructions. iv d/c and covered with 2x2 gauze dressing and paper tape. pt ambulates out of dept. with friend.
== END 2018-01-12 17:48 | disposition home or self-care (01) ==
PROVIDERS: Emergency Provider Emergency Medicine; Family Provider Family Medicine; PCP Family Medicine
DX: E11.43 Type 2 diabetes mellitus with diabetic autonomic (poly)neuropathy (principal); K31.84 Gastroparesis; R11.2 Nausea with vomiting, unspecified; I10 Essential (primary) hypertension; F32.9 Major depressive disorder, single episode, unspecified; K57.90 Diverticulosis of intestine, part unspecified, without perforation or abscess without bleeding; K21.9 Gastro-esophageal reflux disease without esophagitis; E78.5 Hyperlipidemia, unspecified; Z86.73 Personal history of transient ischemic attack (TIA), and cerebral infarction without residual deficits; G43.909 Migraine, unspecified, not intractable, without status migrainosus; I48.0 Paroxysmal atrial fibrillation; G25.81 Restless legs syndrome; I51.81 Takotsubo syndrome; G40.909 Epilepsy, unspecified, not intractable, without status epilepticus; M79.7 Fibromyalgia; E66.9 Obesity, unspecified; Z86.2 Personal history of diseases of the blood and blood-forming organs and certain disorders involving the immune mechanism; Z90.89 Acquired absence of other organs; Z90.49 Acquired absence of other specified parts of digestive tract; Z79.82 Long term (current) use of aspirin; Z79.4 Long term (current) use of insulin; Z79.899 Other long term (current) drug therapy
CPT/HCPCS: 80048; 85025; 96361; 96374; 96375; 99285; J7030; J7040; A4216; J2405

== ENCOUNTER 2018-01-16 22:17 | Emergency (ER) | payer MEDICARE, SELFPAY ==
[2018-01-16 22:17] VITALS: BP 205/110; PULSE 96; RESP 18; TEMP 36.6; O2SAT 97; BMI 40.3
[2018-01-16 22:46] LABS: Bedside Glucose 249 mg/dL (70-110)
--- NOTE | 2018-01-16 22:46 | ED.VISSUMM ---
- ER Visit Summary Date of Service: 01/16/18 Chief Complaint: Nausea and vomiting History of Present Illness: The patient is a 62 F nausea vomiting restarted today, total to 2 episodes, last one 5 minutes prior to arrival. History of diabetic gastroparesis. Seen 4 days ago for similar. States she has Phenergan and Reglan at home, last dose was 5 hours ago with no relief. Last bowel movement was at 5 PM after supper. Positive flatus. Denies abdominal pain. Complains of sweats, no fevers or chills. No chest pains or shortness of breath. She has been a diabetic for last 10 years. History of similar symptoms in the past. Physical Examination: General: Alert and oriented ?3, no acute distress HEENT: Normocephalic, atraumatic. Moist mucosa membranes Neck: supple, nontender. Cardiovascular: Regular rate and rhythm, no murmurs Respiratory: Normal breath sounds, symmetric, no distress Abdomen: Soft, nontender, nondistended Extremities: Nontender, no edema, pulses intact ?4 Neuro: no focal neurological deficits. Test Results: Blood glucose 249. BMP glucose 241, anion gap of 9. Creatinine 0.98. Emergency Department Course and Treatment: Patient nontender abdomen. Moist mucosa membranes. Electrolytes obtain normal periods given fluids, Reglan. Reevaluation still nausea, no vomiting. Haldol and Zofran given. Symptoms improved. Blood pressure elevated on arrival rechecked improved. She is on medications. Patient did not want to try p.o. fluids in ED stating that it will stay down. She does have suppository Phenergan at home. Patient will be discharged with outpatient follow-up, discussed return if any worsening symptoms. All questions were answered. Treatment Plan: [] Disposition: Discharge Impression: 1. Nausea and vomiting with history of gastroparesis This note was generated with [employer] dictation software. It may contain incorrect words, spelling, and punctuation that were not noted in review of the chart prior to signing ED Disposition - Plan for ED Patient: Disposition: Home or Assisted Living Chief Complaint: Nausea/Vomiting Diagnosis: Nausea & vomiting, History of diabetic gastroparesis Instructions: ED Diet Vomiting Diarrhea Referrals: Devan Parks MD [Primary Care Provider] - 3-5 Days
[2018-01-16] MEDS: Metoclopramide 10 MG/2 ML Vial IV (22:59)
[2018-01-16 23:31] LABS: Anion Gap 9 (5-15); BUN 7 mg/dL (7-18); BUN/Creat Ratio 7.1 RATIO (10-20); Calcium,Total 9.2 mg/dL (8.5-10.1); Chloride 101 mmol/L (98-107); Creatinine, Serum 0.98 mg/dL (0.55-1.02); EST Glomerular Filtration Rate 61 mL/min (>60); Est Glom Filt Rate - Afr Amer 73 mL/min (>60); Estimated Creatinine Clearance 55.01 ml/min; Glucose 241 mg/dL (74-106); Sodium Level 135 mmol/L (136-145)
[2018-01-16] MEDS: Ondansetron 4 MG/2 ML Vial IV (23:47)
[2018-01-16] MEDS: Haloperidol Lactate 5 MG/ML Vial 2 MG IV (23:47)
[2018-01-16] MEDS: 0.9% Normal Saline 1,000 ML 150 ML IV (23:48)
[2018-01-16 23:53] VITALS: BP 174/91; PULSE 80; RESP 18; O2SAT 95
[2018-01-17 00:24] VITALS: BP 144/78; PULSE 75; RESP 17; O2SAT 95
== END 2018-01-17 00:25 | disposition home or self-care (01) ==
PROVIDERS: Emergency Provider Emergency Medicine; Family Provider Family Medicine; PCP Family Medicine
DX: R11.2 Nausea with vomiting, unspecified (principal); E11.43 Type 2 diabetes mellitus with diabetic autonomic (poly)neuropathy; K31.84 Gastroparesis; K21.9 Gastro-esophageal reflux disease without esophagitis; I10 Essential (primary) hypertension; E78.00 Pure hypercholesterolemia, unspecified; M79.7 Fibromyalgia; G25.81 Restless legs syndrome; G40.909 Epilepsy, unspecified, not intractable, without status epilepticus; I48.0 Paroxysmal atrial fibrillation; Z90.89 Acquired absence of other organs; Z90.49 Acquired absence of other specified parts of digestive tract; Z79.82 Long term (current) use of aspirin; Z79.4 Long term (current) use of insulin; Z79.899 Other long term (current) drug therapy
CPT/HCPCS: 80048; 82962; 96361; 96374; 96375; 99284; J7030; J7040; A4216; J2405

== ENCOUNTER 2018-01-22 12:44 | Emergency (ER) | payer MEDICARE, SELFPAY ==
--- NOTE | 2018-01-22 12:44 | DT_ITS ---
This patient was seen during an EMR downtime January 20, 2018 - January 27, 2018. This patient may have a combination of paper and electronic documentation or all paper documentation. All documentation is viewable within the e-chart portion of [employer] for each patient visit.
[2018-01-25 10:11] LABS: Anion Gap 7 (5-15); BUN 9 mg/dL (7-18); BUN/Creat Ratio 10.7 RATIO (10-20); Calcium,Total 8.9 mg/dL (8.5-10.1); Chloride 103 mmol/L (98-107); Creatinine, Serum 0.84 mg/dL (0.55-1.02); EST Glomerular Filtration Rate 73 mL/min (>60); Est Glom Filt Rate - Afr Amer 88 mL/min (>60); Glucose 154 mg/dL (74-106); Sodium Level 140 mmol/L (136-145)
--- NOTE | 2018-02-21 07:56 | ED.DCSUM_ITS ---
- ER Visit Summary Date of Service: 02/21/18 Chief Complaint: Abdominal pain with nausea History of Present Illness: The patient is a 62 F who presents with abdominal pain the past couple of days that has been continuous and described as a aching sensation. The pain is diffuse. The pain is mild. She does report nausea and vomiting for the past 2-3 days with one episode of vomiting the day prior to visit. She has had no diarrhea. She denies any fever, chills night sweats. She denies any ocular, visual or auditory symptoms. She did report a cough, which is chronic. She also reported generalized weakness. Past medical history of type 1 diabetes and hypertension. Past surgical history appendectomy cholecystectomy Physical Examination: Vital signs are remarkable for an elevated blood pressure 175/94. Vital signs otherwise unremarkable. Head is atraumatic normocephalic. Pupils are equal round reactive. Extraocular muscles are intact. TMs are pearly white with landmarks noted. Nares patent with no drainage. Posterior pharynx without erythema or exudate. Uvula is midline. There is no dysphonia or dysphasia. Trachea is midline. There is no stridor with auscultation of the neck. Heart is regular without murmur, gallop or rub. S1 and S2 are normal. Lungs are clear to auscultation with good movement of air bilaterally. Abdomen is soft with tenderness. There is no distention. Bowel sounds are decreased. There is no palpable masses or pulsatile masses. There is no hepatosplenomegaly. Back is nontender. There is 1+ lower extremity edema. There is no asymmetry. Dermatologic exam is normal. Neurologic exam is nonfocal. Patient has a depressed affect. Test Results: BMP is remarkable for glucose of 154. Patient was treated with IV Reglan and received 1 L of normal saline. Emergency Department Course and Treatment: Patient had a p.o. challenge. She passed the p.o. challenge. Treatment Plan: Discharge to home with prescription for Reglan since she is diabetic and this may represent gastroparesis. Disposition: Discharged home in stable and improved condition. Impression: Abdominal pain with nausea and vomiting Gastroparesis secondary diabetes Mild dehydration Job number on date of service is [id number] This note was generated with [employer] software. It may contain incorrect words, spelling, and punctuation that were not noted in review of the chart prior to signing ED Disposition - Plan for ED Patient: Disposition: Home or Assisted Living Referrals: Devan Parks MD [Primary Care Provider] -
== END 2018-01-22 14:55 | disposition home or self-care (01) ==
LOC: ED 01-23 13:37
PROVIDERS: Emergency Provider Emergency Medicine; Family Provider Family Medicine; PCP Family Medicine
DX: R10.9 Unspecified abdominal pain (principal); R11.2 Nausea with vomiting, unspecified; E10.43 Type 1 diabetes mellitus with diabetic autonomic (poly)neuropathy; K31.84 Gastroparesis; E86.0 Dehydration; R05 Cough; E66.9 Obesity, unspecified; I10 Essential (primary) hypertension; Z90.49 Acquired absence of other specified parts of digestive tract; Z79.82 Long term (current) use of aspirin; Z79.4 Long term (current) use of insulin; Z79.899 Other long term (current) drug therapy
CPT/HCPCS: 36415; 80048; 96361; 96374; 99284; J7030

== ENCOUNTER 2018-01-28 14:33 | Emergency (ER) | payer MEDICARE, SELFPAY ==
[2018-01-28 14:34] VITALS: BP 173/75; PULSE 83; RESP 16; TEMP 36.4; O2SAT 99; BMI 40.3
[2018-01-28] MEDS: 0.9% Normal Saline 1,000 ML 999 ML IV (15:32)
[2018-01-28] MEDS: Metoclopramide 10 MG/2 ML Vial IV (15:33)
[2018-01-28 15:43] LABS: Absolute Lymphocyte Count 1.99 X10^3/ul (0.83-4.51); Absolute Neutrophil Count 10.8 X10^3/uL (2.0-7.7); Basophil# 0.05 X10^3/uL; Basophil% 0.3 % (0-1); Eosinophil# 0.35 X10^3/uL; Eosinophils% 2.4 % (0-5); Hematocrit 36.9 % (37-47); Lymphocyte # 1.99 X10^3/ul (4.0); Lymphocyte % 13.9 % (19-41); Mean Corp Hgb Conc 32.5 g/gl (32-36); Mean Corpuscular Hgb 24.9 pg (27.0-32.0); Mean Corpuscular Volume 76.6 fL (81-99); Mean Platelet Vol. 9.5 fl (6.2-12.0); Monocyte# 1.09 X10^3/uL; Monocyte% 7.6 % (0-10); Neutrophil # 10.84 X10^3/uL (2.7-7.7); Neutrophil % 75.6 % (47-70); Platelet Count 340 K/mm3 (150-450); RBC Distribution Width CV 15.4 % (11.6-14.6); Red Blood Count 4.82 M/mm3 (4.2-5.4); White Blood Count 14.4 K/mm3 (4.4-11.0)
[2018-01-28 15:52] LABS: POSITIVE COUNT NO; POSITIVE DIFFERENTIAL NO; POSITIVE MORPHOLOGY NO
[2018-01-28 15:54] LABS: Anion Gap 6 (5-15); BUN 16 mg/dL (7-18); BUN/Creat Ratio 13.2 RATIO (10-20); Chloride 96 mmol/L (98-107); Creatinine, Serum 1.21 mg/dL (0.55-1.02); EST Glomerular Filtration Rate 48 mL/min (>60); Est Glom Filt Rate - Afr Amer 58 mL/min (>60); Glucose 421 mg/dL (74-106); Potassium 4.6 mmol/L (3.5-5.1); Sodium Level 130 mmol/L (136-145)
[2018-01-28] MEDS: proMETHazine 25 MG/ML Syringe 12.5 MG IV (16:47)
[2018-01-28] MEDS: Insulin Lispro 100 UNIT/ML INSULN.PEN 10 UNIT SC (16:47)
--- NOTE | 2018-01-28 17:11 | ED.VISSUMM ---
- ER Visit Summary Date of Service: 01/28/18 Chief Complaint: Vomiting History of Present Illness: The patient is a 62 F with a history of diabetes and gastroparesis who presents with nausea and vomiting. She reports that over the past week she has had one episode of nonbloody nonbilious emesis per day. This is a recurrent issue for the patient. She has multiple ER presentations for similar symptoms. She denies any abdominal pain or diarrhea. No fevers. Physical Examination: Afebrile vitals are notable for blood pressure 173/75 otherwise normal Moist mucous membranes Heart regular rate and rhythm Lungs clear Abdomen soft nontender nondistended Alert Test Results: Labs notable for white blood cell count 14.4. On review of prior labs she does appear to have a chronic leukocytosis. Her sodium is 130 glucose of 421 creatinine 1.21. Emergency Department Course and Treatment: Patient was treated with IV fluids. She was given Reglan. She did report some improvement but continued to complain of nausea and was given IV Phenergan with for improvement of symptoms. She was given subcutaneously spoke for her hyperglycemia. I do not see an indication for admission. Patient is comfortable with the plan for discharge and outpatient follow-up. Treatment Plan: [] Disposition: Discharge Impression: Gastroparesis This note was generated with [employer] dictation software. It may contain incorrect words, spelling, and punctuation that were not noted in review of the chart prior to signing ED Disposition - Plan for ED Patient: Chief Complaint: Nausea/Vomiting Referrals: Devan Parks MD [Primary Care Provider] -
--- NOTE | 2018-01-28 17:13 | ED.DEP ---
ED Disposition - Plan for ED Patient: Chief Complaint: Nausea/Vomiting Instructions: ED Diabetic Gastroparesis Referrals: Devan Parks MD [Primary Care Provider] -
[2018-01-28 18:00] LABS: Bedside Glucose 349 mg/dL (70-110)
[2018-01-28 18:03] VITALS: BP 168/74; PULSE 74; RESP 16; O2SAT 98
== END 2018-01-28 18:04 | disposition home or self-care (01) ==
LOC: ED 15:16
PROVIDERS: Emergency Provider Emergency Medicine; Family Provider Family Medicine; PCP Family Medicine
DX: E11.43 Type 2 diabetes mellitus with diabetic autonomic (poly)neuropathy (principal); K31.84 Gastroparesis; E11.65 Type 2 diabetes mellitus with hyperglycemia; K21.9 Gastro-esophageal reflux disease without esophagitis; I10 Essential (primary) hypertension; E78.00 Pure hypercholesterolemia, unspecified; Z90.49 Acquired absence of other specified parts of digestive tract; Z90.89 Acquired absence of other organs; Z79.82 Long term (current) use of aspirin; Z79.4 Long term (current) use of insulin; Z79.899 Other long term (current) drug therapy
CPT/HCPCS: 80048; 82962; 85025; 96372; 96374; 96375; 99285; J7030; A4216

== ENCOUNTER 2018-02-05 13:26 | Emergency (ER) | payer MEDICARE, SELFPAY ==
[2018-02-05 13:27] VITALS: BP 153/94; PULSE 91; RESP 18; TEMP 36.6; O2SAT 94; BMI 40.3
[2018-02-05] MEDS: proMETHazine 25 MG/ML Syringe 12.5 MG IV ×2 (15:01→17:03)
[2018-02-05 15:25] LABS: Bedside Glucose 449 mg/dL (70-110)
--- NOTE | 2018-02-05 16:42 | CASEMGMT ---
Social Work Note Referral from Dr. Haywood for a care plan. Face to face with pt to assess. Introduced self and role at [facility]. The pt presents with flat affect as evidenced by no change in expression or tone of voice throughout conversation. Pt reports that she lives with her son who has an apartment in the basement of her home. She denies access issues and reports to be independent with ADL's and driving. Pt does not use DME at baseline and denies having in the home. confirms that her PCP is Dr. Parks and she sees Benja Steven, DO a food counter attendant at [facility]. Preferred pharmacy is [facility]. Pt does have advanced directives and her sister, Linda Mike, is her HCPOA. Denies utilizing any community services. States she had depression after the of her 2 years ago. This was managed by her PCP and she is no longer on medication. Denies having ever seen a counselor or psychiatrist following this event. Denies substance abuse. Review with the pt that she has had 13 visits since November of this year. Pt states that Dr. Steven wants her to have IV treatments for an automuscular disease but is unsure of what treatment it is. Pt states that she has tried to apply for Medicaid and makes approximately $900/month and does not qualify for Medicaid. Inform that SW may call Dr. Steven to confirm treatments and see if there is available assistance. Pt denies further needs at this time and is made aware that SW will f/u via phone call. Placed call to Dr. Steven's office at [facility] and left requesting a return phone call. SW to continue to follow and assist. Ashli Carter, SERVICES MANAGER, REFLESHER
--- NOTE | 2018-02-05 16:51 | ED.VISSUMM ---
- ER Visit Summary Date of Service: 02/05/18 Chief Complaint: Nausea History of Present Illness: The patient is a 62 F who presents with nausea. Patient has extensive visits to the emergency department for the same. She states this episode started around noon. She was able to eat some breakfast. Patient is a diabetic as well as a patient who has fibromyalgia hypertension high cholesterol. No diarrhea. No fevers. Physical Examination: Afebrile vital signs are stable Gen: Well-nourished well-developed Head: Normocephalic atraumatic Eyes: Perrl EOMI ENT: TMs clear no rhinorrhea moist mucous membranes Neck: Supple no lymphadenopathy no JVD nontender CVS: Regular rate rhythm no murmurs normal S1-S2 Respiratory: No distress clear to auscultation bilaterally chest nontender Abdomen: Soft nontender nondistended normal bowel sounds no masses Back: Nontender Extremity: Nontender no edema Skin: Normal color no rash Neuro: alert orientated ?3 CN II-XII intact normal strength sensation reflexes gait cerebellar Psych: Normal affect normal mood Test Results: Blood sugar 449. Emergency Department Course and Treatment: She received Phenergan and insulin. She required additional dosing of Phenergan and requested something for pain. She received Han[place]i for which she has at home. Patient will be discharged home. I did contact case management to discuss care plan option for this patient. Impression: 1. Nausea 2. Diabetic hyperglycemia This note was generated with [employer] dictation software. It may contain incorrect words, spelling, and punctuation that were not noted in review of the chart prior to signing ED Disposition - Plan for ED Patient: Disposition: Home or Assisted Living Chief Complaint: Nausea/Vomiting Instructions: ED Nausea Vomiting Referrals: Devan Parks MD [Primary Care Provider] - Keep Suzette appointment
[2018-02-05] MEDS: HYDROcodone Bitartrate/Apap 5/325 Tablet PO (17:03)
[2018-02-05 17:11] VITALS: BP 186/79; O2SAT 95
[2018-02-05 17:16] LABS: Bedside Glucose 279 mg/dL (70-110)
== END 2018-02-05 17:15 | disposition home or self-care (01) ==
PROVIDERS: Emergency Provider Emergency Medicine; Family Provider Family Medicine; PCP Family Medicine
DX: E11.65 Type 2 diabetes mellitus with hyperglycemia (principal); R11.0 Nausea; M79.7 Fibromyalgia; I10 Essential (primary) hypertension; E78.00 Pure hypercholesterolemia, unspecified; K21.9 Gastro-esophageal reflux disease without esophagitis; E11.43 Type 2 diabetes mellitus with diabetic autonomic (poly)neuropathy; K31.84 Gastroparesis; G40.909 Epilepsy, unspecified, not intractable, without status epilepticus; Z79.82 Long term (current) use of aspirin; Z79.4 Long term (current) use of insulin; Z79.899 Other long term (current) drug therapy
CPT/HCPCS: 82962; 96374; 96375; 96376; 99285; A4216

== ENCOUNTER 2018-02-19 09:35 | Emergency (ER) | payer MEDICARE, SELFPAY ==
[2018-02-19 09:36] VITALS: BP 169/77; PULSE 84; RESP 16; TEMP 36.5; O2SAT 98; BMI 40.3
--- NOTE | 2018-02-19 09:46 | EKG12_ITS ---
Test Reason : N/V Blood Pressure : / mmHG Vent. Rate : 087 BPM Atrial Rate : 087 BPM P-R Int : 150 ms QRS Dur : 088 ms QT Int : 390 ms P-R-T Axes : 019 -37 042 degrees QTc Int : 469 ms Normal sinus rhythm Left axis deviation Abnormal ECG Confirmed by ABIMAEL CURRY, CAROLE ([id number]), content editor MAIKEL MULLEN ([id number]) on 02/24/2018 3:38:48 PM Referred By: BERNARDINO Confirmed By:CAROLE VARGHESE MD
[2018-02-19] MEDS: Metoclopramide 10 MG/2 ML Vial IV (10:07)
[2018-02-19] MEDS: 0.9% Normal Saline 1,000 ML 125 ML IV (10:07)
[2018-02-19 10:16] LABS: Mucous, Urine 0 SEEN /hpf (<or=2+); Red Blood Cells-Urine 0 SEEN /hpf (0-5); White Blood Cells 0 SEEN /hpf (0-5)
[2018-02-19 10:18] LABS: Color, Urine Yellow (Yellow); Glucose, Dipstick 1000 mg/dl (Normal); Ketone-Dipstick Negative (Negative); Leukocyte Esterase-Dipstick Negative /ul (Negative); Nitrite-Dipstick Negative (Negative); Occult Blood-Urine Negative /ul (Negative); Protein-Dipstick Negative (Negative); Urine Bilirubin Dipstick Negative (Negative); Urine Clarity Clear (Clear); Urine Urobilinogen Normal (Normal); Urine pH 6.5 (5.0 - 8.0)
[2018-02-19 10:19] LABS: Absolute Lymphocyte Count 2.19 X10^3/ul (0.83-4.51); Absolute Neutrophil Count 6.4 X10^3/uL (2.0-7.7); Basophil# 0.05 X10^3/uL; Basophil% 0.5 % (0-1); Eosinophil# 0.28 X10^3/uL; Eosinophils% 2.9 % (0-5); Hematocrit 35.9 % (37-47); Hemoglobin 11.4 g/dl (12.0-15.0); Lymphocyte # 2.19 X10^3/ul (4.0); Lymphocyte % 22.4 % (19-41); Mean Corp Hgb Conc 31.8 g/gl (32-36); Mean Corpuscular Hgb 24.2 pg (27.0-32.0); Mean Corpuscular Volume 76.2 fL (81-99); Mean Platelet Vol. 9.5 fl (6.2-12.0); Monocyte# 0.79 X10^3/uL; Monocyte% 8.1 % (0-10); Neutrophil # 6.44 X10^3/uL (2.7-7.7); Platelet Count 344 K/mm3 (150-450); RBC Distribution Width CV 14.9 % (11.6-14.6); Red Blood Count 4.71 M/mm3 (4.2-5.4); White Blood Count 9.8 K/mm3 (4.4-11.0)
[2018-02-19 10:22] LABS: POSITIVE COUNT NO; POSITIVE DIFFERENTIAL NO; POSITIVE MORPHOLOGY NO
[2018-02-19 10:29] LABS: Bacteria RARE /hpf (None Seen); Squamous Epithelial Cells - UA 0-5 SEEN /hpf (5-10)
[2018-02-19 10:41] LABS: Anion Gap 8 (5-15); BUN 12 mg/dL (7-18); BUN/Creat Ratio 11.2 RATIO (10-20); Calcium,Total 8.9 mg/dL (8.5-10.1); Chloride 97 mmol/L (98-107); Creatinine, Serum 1.07 mg/dL (0.55-1.02); EST Glomerular Filtration Rate 55 mL/min (>60); Est Glom Filt Rate - Afr Amer 67 mL/min (>60); Estimated Creatinine Clearance 50.38 ml/min; Glucose 385 mg/dL (74-106); Potassium 4.2 mmol/L (3.5-5.1); Sodium Level 133 mmol/L (136-145)
[2018-02-19] MEDS: Insulin Lispro 100 UNIT/ML INSULN.PEN 10 UNIT SC (11:09)
[2018-02-19] MEDS: proMETHazine 25 MG/ML Syringe 12.5 MG IV ×2 (11:10→11:40)
--- NOTE | 2018-02-19 11:39 | ED.VISSUMM ---
- ER Visit Summary Date of Service: 02/19/18 Chief Complaint: [Nausea] History of Present Illness: The patient is a 62 F [presents the emergency department complaint of nausea that started this morning. Patient has not taken her meds this morning. Patient states that in the middle the night she took some Phenergan but did not seem to help. Patient denies any abdominal pain. Patient denies diarrhea. Patient denies chest pain. Patient has history of chronic nausea issues. She has Reglan at home but did not take any of it. Patient denies fever or recent illness.] Physical Examination: [HEENT-PERRLA, EOMI. Cranial nerves II through XII grossly intact. TMs clear. Mucous membranes moist. No adenopathy. Cardiovascular-regular rate and rhythm without murmur or ectopy Lungs-clear to auscultation, chest wall stable without crepitus or subcu emphysema Abdomen-normoactive bowel sounds, soft, nontender, no rebound or rigidity, no peritoneal signs. Extremities-intact ?4, normal range of motion, normal pulses, atraumatic] Test Results: [EKG obtained arrival shows sinus rhythm with a ventricular rate of 87 bpm with no acute ST segment changes. CBC with differential showed a white count of 9.8, hemoglobin 11.4, hematocrit 36, platelets 344. Chemistries unremarkable. Glucose was elevated 385. Urinalysis showed greater than 1000 glucose otherwise no signs of infection. Troponin was less than 0.015.] Emergency Department Course and Treatment: [Patient received Reglan 10 mg IV which did not help her symptoms. She then received Phenergan 12.5 mg IV and she got some relief but requested more nausea medicine and she was given another 12.5 mg of Phenergan after which time she was significantly improved.] Treatment Plan: [Patient advised to follow-up with her primary care physician within next 3-5 days.] Disposition: [Discharged home in stable condition] Impression: [Nausea-acute on chronic] This note was generated with [employer] software. It may contain incorrect words, spelling, and punctuation that were not noted in review of the chart prior to signing ED Disposition - Plan for ED Patient: Chief Complaint: Nausea/Vomiting Referrals: Devan Parks MD [Primary Care Provider] -
[2018-02-19 11:40] VITALS: BP 158/61; PULSE 67; RESP 12; O2SAT 96
--- NOTE | 2018-02-19 11:41 | ED.DEP ---
ED Disposition - Plan for ED Patient: Chief Complaint: Nausea/Vomiting Instructions: ED Nausea Vomiting Referrals: Devan Parks MD [Primary Care Provider] - 3-5 Days
== END 2018-02-19 11:45 | disposition home or self-care (01) ==
LOC: ED 10:08
PROVIDERS: Emergency Provider Emergency Medicine; Family Provider Family Medicine; PCP Family Medicine
DX: R11.0 Nausea (principal); I25.2 Old myocardial infarction; I10 Essential (primary) hypertension; E11.9 Type 2 diabetes mellitus without complications; E78.00 Pure hypercholesterolemia, unspecified; E03.9 Hypothyroidism, unspecified; I48.91 Unspecified atrial fibrillation; M79.7 Fibromyalgia; G40.909 Epilepsy, unspecified, not intractable, without status epilepticus; G25.81 Restless legs syndrome; G43.909 Migraine, unspecified, not intractable, without status migrainosus; Z79.82 Long term (current) use of aspirin; Z79.4 Long term (current) use of insulin; Z79.899 Other long term (current) drug therapy
CPT/HCPCS: 80048; 81001; 84484; 85025; 93005; 96361; 96372; 96374; 96375; 99284; J7030

== ENCOUNTER 2018-02-22 19:50 | Emergency (ER) | payer MEDICARE, SELFPAY ==
[2018-02-22 19:51] VITALS: BP 160/91; PULSE 94; RESP 16; TEMP 36.4; O2SAT 99; BMI 40.3
[2018-02-22] MEDS: 0.9% Normal Saline 1,000 ML 1000 ML IV (20:17)
[2018-02-22] MEDS: Metoclopramide 10 MG/2 ML Vial IV (20:17)
[2018-02-22] MEDS: DiphenhydrAMINE 50 MG/ML Syringe 25 MG IV ×2 (20:17→21:40)
[2018-02-22 20:21] LABS: Absolute Lymphocyte Count 2.08 X10^3/ul (0.83-4.51); Absolute Neutrophil Count 10.3 X10^3/uL (2.0-7.7); Basophil# 0.05 X10^3/uL; Basophil% 0.4 % (0-1); Eosinophil# 0.29 X10^3/uL; Eosinophils% 2.2 % (0-5); Hematocrit 37.6 % (37-47); Hemoglobin 11.8 g/dl (12.0-15.0); Lymphocyte # 2.08 X10^3/ul (4.0); Lymphocyte % 15.6 % (19-41); Mean Corp Hgb Conc 31.4 g/gl (32-36); Mean Corpuscular Hgb 24.1 pg (27.0-32.0); Mean Corpuscular Volume 76.7 fL (81-99); Mean Platelet Vol. 9.2 fl (6.2-12.0); Monocyte# 0.63 X10^3/uL; Monocyte% 4.7 % (0-10); Neutrophil # 10.29 X10^3/uL (2.7-7.7); Platelet Count 370 K/mm3 (150-450); RBC Distribution Width CV 15.2 % (11.6-14.6); RBC Distribution Width SD 42.6 fl (35.1-43.9); White Blood Count 13.4 K/mm3 (4.4-11.0)
[2018-02-22 20:22] LABS: POSITIVE COUNT NO; POSITIVE DIFFERENTIAL NO; POSITIVE MORPHOLOGY NO
--- NOTE | 2018-02-22 20:30 | ED.DCSUM_ITS ---
- ER Visit Summary Date of Service: 02/22/18 Chief Complaint: Nausea, vomiting History of Present Illness: The patient is a 62 F presents to the emergency department nausea and vomiting. Patient has a history of this. She does have a history of gastroparesis. She has had multiple visits to the emergency department for the same symptoms. She was actually seen here 3 days ago. She states she is doing well begin to get nauseated yesterday. She began have vomiting today. She denies abdominal pain. She denies fevers or chills. She did try to take her Phenergan at home with no improvement. Physical Examination: Vital signs reviewed General: Well-nourished, well-developed Head: Normocephalic, atraumatic Eyes: Pupils equal and reactive, extraocular muscles intact Neck, supple, no lymphadenopathy Heart: Regular rate and rhythm Respiratory: No distress, clear bilaterally Abdomen: Soft, nontender, nondistended, no peritoneal signs Back: Nontender Extremities: Nontender, no edema, no cords Skin: Normal color no rash Neuro: Alert and oriented, no focal or lateralizing deficits Test Results: [] Emergency Department Course and Treatment: The patient presents to the emergency department with recurrent nausea and vomiting. She has all these symptoms multiple times. IV was established. Patient was given Reglan with little improvement. Labs do show mild leukocytosis which I feel is likely reactive. She has absolutely no abdominal pain. She is hyperglycemic and was given insulin. The patient was redosed with Phenergan with improvement of her symptoms. This is a chronic issue for the patient. I do not feel admission is indicated. She will be discharged home to continue her antiemetics. Treatment Plan: [] Disposition: Discharge Impression: Nausea and vomiting This note was generated with [employer] dictation software. It may contain incorrect words, spelling, and punctuation that were not noted in review of the chart prior to signing ED Disposition - Plan for ED Patient: Chief Complaint: Nausea/Vomiting Instructions: ED Nausea Vomiting Referrals: Devan Parks MD [Primary Care Provider] -
[2018-02-22 20:34] LABS: ALB/GLOB Ratio 0.7 RATIO (0.9-2.4); AST(SGOT) 42 U/L (15-37); Alanine Aminotransfer ALT/SGPT 33 U/L (13-56); Albumin, Serum 3.2 g/dL (3.2-5.0); Alkaline Phosphatase 206 U/L (45-117); Anion Gap 9 (5-15); BUN 12 mg/dL (7-18); BUN/Creat Ratio 9.6 RATIO (10-20); Calcium,Total 8.9 mg/dL (8.5-10.1); Chloride 101 mmol/L (98-107); Creatinine, Serum 1.25 mg/dL (0.55-1.02); EST Glomerular Filtration Rate 46 mL/min (>60); Est Glom Filt Rate - Afr Amer 56 mL/min (>60); Estimated Creatinine Clearance 43.12 ml/min; Globulin 4.5 g/dL (2.2-4.2); Glucose 410 mg/dL (74-106); Potassium 4.2 mmol/L (3.5-5.1); Protein, Total 7.7 g/dL (6.4-8.2); Sodium Level 136 mmol/L (136-145)
[2018-02-22] MEDS: proMETHazine 25 MG/ML Syringe 12.5 MG IV (21:40)
[2018-02-22] MEDS: Insulin Lispro 100 UNIT/ML INSULN.PEN 10 UNIT SC (21:42)
== END 2018-02-22 22:37 | disposition home or self-care (01) ==
LOC: ED 20:18
PROVIDERS: Emergency Provider Emergency Medicine; Family Provider Family Medicine; PCP Family Medicine
DX: R11.2 Nausea with vomiting, unspecified (principal); E11.65 Type 2 diabetes mellitus with hyperglycemia; I25.10 Atherosclerotic heart disease of native coronary artery without angina pectoris; I10 Essential (primary) hypertension; E78.00 Pure hypercholesterolemia, unspecified; E66.9 Obesity, unspecified; Z68.41 Body mass index [BMI] 40.0-44.9, adult; Z79.82 Long term (current) use of aspirin; Z79.4 Long term (current) use of insulin; Z79.899 Other long term (current) drug therapy
CPT/HCPCS: 80053; 85025; 96361; 96374; 96375; 96376; 99284; J7030; A4216

== ENCOUNTER 2018-02-26 10:52 | Emergency (ER) | payer MEDICARE, SELFPAY ==
[2018-02-26 10:53] VITALS: BP 217/97; PULSE 82; RESP 17; TEMP 36.2; O2SAT 95; BMI 40.3
--- NOTE | 2018-02-26 11:34 | CM.ED ---
Social Work Note Referral from architectural design professor for frequent visits. Pt known to SW from past visits and admission. Introduced self and role at [facility]. The pt confirms demographics. Pt frequently visits for nausea/vomiting. Has been established with [facility] in the past, but was always too sick to make it to the appointments and reports that they told her to return once she got her stomach figured out. Educate pt to other counseling services in the area that are not as intensive and pt declines at this time. Educate to palliative care and their service. Pt is agreeable to have a palliative care referral made to [facility]. Initial referral faxed as well as a copy to pt's PCP. SW to continue to assist as needed. Plan: Palliative Care Consult through [facility] Ashli Carter, ANSWERING SERVICE TELEPHONE OPERATOR, FARM EQUIPMENT MECHANIC APPRENTICE
[2018-02-26] MEDS: Ondansetron ODT 4 MG Tablet PO (11:37)
[2018-02-26] MEDS: proMETHazine 25 MG/ML Syringe 12.5 MG IM (11:41)
--- NOTE | 2018-02-26 12:18 | ED.DCSUM_ITS ---
- ER Visit Summary Date of Service: 02/26/18 Chief Complaint: Vomiting History of Present Illness: The patient is a [address] Parks. She has a history of gastroparesis. She reports that she began vomiting this morning. She is vomited twice. No blood or emesis. No abdominal pain. No diarrhea. Her last problem was today. No melena or hematochezia. No dysuria or frequency. No fever or chills. Physical Examination: Vitals: Stable. Afebrile. General: Well-nourished and well-developed. Head: Normocephalic atraumatic. Neck: Supple, no lymphadenopathy. No JVD. Nontender. Cardiovascular: Regular rate and rhythm. No murmurs. Respiratory: No respiratory distress. Clear to auscultation bilaterally. Abdominal: Soft, nontender, nondistended, normal bowel sounds. No guarding, rebound, or peritoneal signs. Back: Nontender. Extremities: Nontender, no edema. Skin: Normal color, no rash. Neurologic: Alert and oriented ?3. Cranial nerves II through XII are intact. Normal strength and sensation. Psych: Normal affect. Emergency Department Course and Treatment: Patient was given a dose of Zofran p.o. and Phenergan IM. She reports that she is still nauseated. However, she has not vomited while here. She had an IV placed and was given a dose of Reglan IV and feels improved. Treatment Plan: Patient be discharged with Zofran. Instructed continue use her Phenergan at home. Follow with her primary care physician 1-2 days if not improving. Disposition: To home in improved and stable condition. Impression: 1. Gastroparesis. This note was generated with [employer] dictation software. It may contain incorrect words, spelling, and punctuation that were not noted in review of the chart prior to signing ED Disposition - Plan for ED Patient: Disposition: Home or Assisted Living Chief Complaint: Nausea/Vomiting Instructions: ED Nausea Vomiting Prescriptions: Ondansetron [Zofran Odt] 4 mg PO Q8H PRN PRN #10 tablet PRN Reason: Nausea Referrals: Devan Parks MD [Primary Care Provider] - 1-2 Days if not improving
[2018-02-26] MEDS: Metoclopramide 10 MG/2 ML Vial IV (13:34)
[2018-02-26 13:35] VITALS: BP 172/84; PULSE 71; RESP 16; O2SAT 94
[2018-02-26 14:30] VITALS: BP 168/89; PULSE 98; RESP 14; O2SAT 98
== END 2018-02-26 14:32 | disposition home or self-care (01) ==
PROVIDERS: Emergency Provider Emergency Medicine; Family Provider Family Medicine; PCP Family Medicine
DX: E11.43 Type 2 diabetes mellitus with diabetic autonomic (poly)neuropathy (principal); K31.84 Gastroparesis; R51 Headache; I10 Essential (primary) hypertension; E78.00 Pure hypercholesterolemia, unspecified; I25.2 Old myocardial infarction; Z90.89 Acquired absence of other organs; Z90.49 Acquired absence of other specified parts of digestive tract; Z79.82 Long term (current) use of aspirin; Z79.4 Long term (current) use of insulin; Z79.899 Other long term (current) drug therapy
CPT/HCPCS: 96372; 96374; 99283; J2760

== ENCOUNTER 2018-03-04 09:40 | Emergency (ER) | payer MEDICARE, SELFPAY ==
[2018-03-04 09:41] VITALS: BP 206/94; PULSE 83; RESP 18; TEMP 36.6; O2SAT 96; BMI 40.3
[2018-03-04 10:20] VITALS: RESP 20
[2018-03-04] MEDS: 0.9% Normal Saline 1,000 ML 1000 ML IV (11:11)
[2018-03-04] MEDS: Metoclopramide 10 MG/2 ML Vial IV (11:11)
[2018-03-04] MEDS: diazePAM 5 MG Tablet 10 MG PO (11:11)
[2018-03-04 11:28] LABS: Absolute Lymphocyte Count 2.47 X10^3/ul (0.83-4.51); Absolute Neutrophil Count 8.9 X10^3/uL (2.0-7.7); Basophil# 0.09 X10^3/uL; Basophil% 0.7 % (0-1); Eosinophil# 0.41 X10^3/uL; Eosinophils% 3.2 % (0-5); Hematocrit 35.6 % (37-47); Hemoglobin 10.9 g/dl (12.0-15.0); Lymphocyte # 2.47 X10^3/ul (4.0); Mean Corp Hgb Conc 30.6 g/gl (32-36); Mean Corpuscular Hgb 23.8 pg (27.0-32.0); Mean Corpuscular Volume 77.7 fL (81-99); Mean Platelet Vol. 9.2 fl (6.2-12.0); Monocyte# 1.09 X10^3/uL; Monocyte% 8.4 % (0-10); Neutrophil # 8.94 X10^3/uL (2.7-7.7); Neutrophil % 68.6 % (47-70); POSITIVE COUNT NO; POSITIVE DIFFERENTIAL NO; POSITIVE MORPHOLOGY NO; Platelet Count 324 K/mm3 (150-450); RBC Distribution Width CV 15.3 % (11.6-14.6); Red Blood Count 4.58 M/mm3 (4.2-5.4)
[2018-03-04 11:43] LABS: ALB/GLOB Ratio 0.7 RATIO (0.9-2.4); AST(SGOT) 56 U/L (15-37); Alanine Aminotransfer ALT/SGPT 42 U/L (13-56); Alkaline Phosphatase 210 U/L (45-117); Anion Gap 8 (5-15); BUN 13 mg/dL (7-18); BUN/Creat Ratio 11.3 RATIO (10-20); Calcium,Total 8.9 mg/dL (8.5-10.1); Chloride 104 mmol/L (98-107); Creatinine, Serum 1.15 mg/dL (0.55-1.02); EST Glomerular Filtration Rate 51 mL/min (>60); Est Glom Filt Rate - Afr Amer 61 mL/min (>60); Estimated Creatinine Clearance 46.87 ml/min; Globulin 4.2 g/dL (2.2-4.2); Glucose 286 mg/dL (74-106); Potassium 4.8 mmol/L (3.5-5.1); Protein, Total 7.2 g/dL (6.4-8.2); Sodium Level 138 mmol/L (136-145)
--- NOTE | 2018-03-04 13:15 | ED.VISSUMM ---
- ER Visit Summary Date of Service: 03/04/18 Chief Complaint: Nausea History of Present Illness: The patient is a 62 F with chronic recurrent nausea she is a diabetic. She has no current abdominal pain no fever or chills. No diarrhea or constipation. It is worse today. Physical Examination: Otherwise unremarkable exam slightly dry mucous membranes with a soft nontender abdomen. Emergency Department Course and Treatment: Patient improved with antiemetics IV fluids and p.o. Valium. I will discharge her home she has Reglan, Phenergan and Zofran at home. Disposition: Discharge stable condition Impression: Nausea This note was generated with [employer] dictation software. It may contain incorrect words, spelling, and punctuation that were not noted in review of the chart prior to signing ED Disposition - Plan for ED Patient: Disposition: Home or Assisted Living Chief Complaint: Nausea/Vomiting Instructions: ED Nausea Vomiting Referrals: Devan Parks MD [Primary Care Provider] - 2 Days
--- NOTE | 2018-03-04 13:19 | ED.DCSUM_ITS ---
- ER Visit Summary Date of Service: 03/04/18 Chief Complaint: Nausea History of Present Illness: The patient is a 62 F with chronic recurrent nausea she is a diabetic. She has no current abdominal pain no fever or chills. No diarrhea or constipation. It is worse today. Physical Examination: Otherwise unremarkable exam slightly dry mucous membranes with a soft nontender abdomen. Emergency Department Course and Treatment: Patient improved with antiemetics IV fluids and p.o. Valium. I will discharge her home she has Reglan, Phenergan and Zofran at home. Disposition: Discharge stable condition Impression: Nausea This note was generated with [employer] dictation software. It may contain incorrect words, spelling, and punctuation that were not noted in review of the chart prior to signing ED Disposition - Plan for ED Patient: Disposition: Home or Assisted Living Chief Complaint: Nausea/Vomiting Instructions: ED Nausea Vomiting Referrals: Devan Parks MD [Primary Care Provider] - 2 Days
[2018-03-04 13:51] VITALS: BP 152/67; PULSE 66; RESP 14
[2018-03-04 13:53] VITALS: BP 152/67; PULSE 66; RESP 17
== END 2018-03-04 13:59 | disposition home or self-care (01) ==
PROVIDERS: Emergency Provider Emergency Medicine; Family Provider Family Medicine; PCP Family Medicine
DX: R11.0 Nausea (principal); E11.9 Type 2 diabetes mellitus without complications; I10 Essential (primary) hypertension; E78.00 Pure hypercholesterolemia, unspecified; M79.7 Fibromyalgia; Z79.82 Long term (current) use of aspirin; Z79.4 Long term (current) use of insulin; Z79.899 Other long term (current) drug therapy
CPT/HCPCS: 80053; 85025; 96361; 96374; 99285; J7030

== ENCOUNTER 2018-03-09 14:15 | Inpatient (IN) | payer MEDICARE, SELFPAY ==
[2018-03-09 14:16] VITALS: BP 209/93; PULSE 121; RESP 17; TEMP 37.3; O2SAT 95; BMI 40.3
[2018-03-09 15:13] LABS: Absolute Neutrophil Count 16.1 X10^3/uL (2.0-7.7); Basophil# 0.04 X10^3/uL; Basophil% 0.2 % (0-1); Eosinophil# 0.29 X10^3/uL; Eosinophils% 1.5 % (0-5); Hematocrit 39.2 % (37-47); Hemoglobin 12.1 g/dl (12.0-15.0); Lymphocyte % 5.8 % (19-41); Mean Corp Hgb Conc 30.9 g/gl (32-36); Mean Corpuscular Hgb 24.2 pg (27.0-32.0); Mean Corpuscular Volume 78.2 fL (81-99); Mean Platelet Vol. 9.4 fl (6.2-12.0); Monocyte# 1.55 X10^3/uL; Monocyte% 8.1 % (0-10); Neutrophil # 16.09 X10^3/uL (2.7-7.7); Neutrophil % 84.2 % (47-70); Platelet Count 382 K/mm3 (150-450); RBC Distribution Width CV 15.3 % (11.6-14.6); RBC Distribution Width SD 43.3 fl (35.1-43.9); Red Blood Count 5.01 M/mm3 (4.2-5.4); White Blood Count 19.1 K/mm3 (4.4-11.0)
[2018-03-09 15:15] LABS: Differential Indicated SCAN CRITERIA MET; POSITIVE COUNT NO; POSITIVE DIFFERENTIAL YES; POSITIVE MORPHOLOGY NO
[2018-03-09 15:30] LABS: ALB/GLOB Ratio 0.7 RATIO (0.9-2.4); AST(SGOT) 54 U/L (15-37); Alanine Aminotransfer ALT/SGPT 47 U/L (13-56); Albumin, Serum 3.3 g/dL (3.2-5.0); Alkaline Phosphatase 267 U/L (45-117); Anion Gap 9 (5-15); BUN 9 mg/dL (7-18); BUN/Creat Ratio 7.1 RATIO (10-20); Calcium,Total 9.2 mg/dL (8.5-10.1); Chloride 97 mmol/L (98-107); Creatinine, Serum 1.26 mg/dL (0.55-1.02); EST Glomerular Filtration Rate 46 mL/min (>60); Est Glom Filt Rate - Afr Amer 55 mL/min (>60); Estimated Creatinine Clearance 42.78 ml/min; Glucose 351 mg/dL (74-106); Lipase 121 U/L (73-393); Potassium 4.1 mmol/L (3.5-5.1); Protein, Total 8.3 g/dL (6.4-8.2); Sodium Level 133 mmol/L (136-145)
[2018-03-09] MEDS: proMETHazine 25 MG/ML Syringe 12.5 MG IV (15:32)
[2018-03-09] MEDS: 0.9% Normal Saline 1,000 ML 1000 ML IV (15:32)
[2018-03-09] MEDS: Dicyclomine 20 MG/2 ML Vial IM (15:33)
--- NOTE | 2018-03-09 15:43 | ED.DCSUM_ITS ---
- ER Visit Summary Date of Service: 03/09/18 Chief Complaint: Vomiting History of Present Illness: The patient is a 62 F who presents with vomiting. She is well-known to this emergency department. She has recurrent nausea and vomiting. She began vomiting again this morning. She reports about 6 episodes of nonbloody nonbilious emesis. However she also reports 3 episodes of loose watery stools which she normally does not have with this. She complains of diffuse abdominal cramping. No fevers. No chest pain shortness of breath. Physical Examination: Blood pressure 209/93, afebrile, heart rate 121 Patient resting comfortably no distress Moist mucous membranes Heart regular rhythm tachycardia Lungs are clear Abdomen soft no reproducible tenderness nondistended Alert Test Results: Laboratory studies are notable for leukocytosis with a white blood cell count of 19,000. Creatinine is 1.26. Glucose 351. Hepatic function lipase notable for alkaline phosphatase 267, AST 54. Urinalysis normal. Lactic acid 2.4. CT the abdomen and pelvis shows no acute abnormality. Chest x-ray shows no acute findings. Emergency Department Course and Treatment: Patient is well-known to our department and she does have a history of recurrent vomiting. She was initially symptomatically treated with IV fluids Phenergan and Bentyl. She continued to complain of nausea and was also given IV Reglan she does complain of today which she normally does not have her leukocytosis with white count of 19,000 CT of the abdomen was obtained which shows no acute abnormality. On reevaluation the patient developed a fever of 102.8. Her pulse ox was noted to be 91% although she does not have respiratory symptoms. A chest x-ray was obtained which shows no acute findings. Her lactic acid is also mildly elevated. There is no obvious clear source of bacterial infection given normal chest x-ray normal CT the abdomen normal rash. However she was empirically treated with IV Zosyn. She was discussed with the hospitalist will be admitted. Treatment Plan: [] Disposition: Admit Impression: Abdominal pain Nausea vomiting diarrhea Systemic inflammatory response syndrome This note was generated with [employer] software. It may contain incorrect words, spelling, and punctuation that were not noted in review of the chart prior to signing ED Disposition - Plan for ED Patient: Chief Complaint: Nausea/Vomiting Referrals: Devan Parks MD [Primary Care Provider] -
[2018-03-09 15:53] LABS: Differential Comment SCANNED; Platelet Estimate ADEQUATE (ADEQ)
--- NOTE | 2018-03-09 16:08 | CT_ITS ---
STUDY: CT ABDOMEN AND PELVIS WITHOUT CONTRAST REASON FOR EXAM: Female, 62 years old. N/V/D. PRIOR APPY AND KUMAR RADIATION DOSAGE (If Supplied By Facility): CTDIvol = ( 34.11 ) mGy, DLP = ( 1849.53 ) mGycm TECHNIQUE: Transaxial images were obtained from the dome of the diaphragm to the symphysis pubis without oral contrast, and without intravenous contrast. Sagittal and coronal images were reconstructed. Individualized dose optimization techniques were used for this CT. COMPARISON: January 10, 2017, FINDINGS: The visualized lung bases are unremarkable. The visualized portions of the heart are within normal limits. Gallbladder and appendix are not seen. 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 Normal spleen. Normal pancreas. Normal bilateral adrenal glands. Normal right kidney. Normal left kidney. Normal visualized stomach. Normal small intestine. The cecum is again seen in the left abdomen. There is mild atherosclerotic calcification of the abdominal aorta, without a demonstrated aneurysm. Normal inferior vena cava. Normal retroperitoneum. Normal urinary bladder. Normal abdominal wall. There are diffuse degenerative changes of the visualized lumbar spine. CT/Abdomen/Pelvis without Cont IMPRESSION: No acute abnormality is demonstrated. Electronically Signed: Lucia Medley MD at 17:06 EDT , Service support ,
[2018-03-09] MEDS: Metoclopramide 10 MG/2 ML Vial IV (17:25)
[2018-03-09 17:42] LABS: Bacteria 0 SEEN /hpf (None Seen); Mucous, Urine 0 SEEN /hpf (<or=2+); White Blood Cells 0 SEEN /hpf (0-5)
[2018-03-09 17:47] LABS: Glucose, Dipstick 1000 mg/dl (Normal); Ketone-Dipstick Negative (Negative); Leukocyte Esterase-Dipstick Negative /ul (Negative); Nitrite-Dipstick Negative (Negative); Occult Blood-Urine 25 /ul (Negative); Protein-Dipstick 15 mg/dl (Negative); Urine Bilirubin Dipstick Negative (Negative); Urine Urobilinogen Normal (Normal)
[2018-03-09 17:48] LABS: Color, Urine Yellow (Yellow)
[2018-03-09 17:49] LABS: Urine Clarity Clear (Clear)
[2018-03-09 17:53] VITALS: PULSE 112; RESP 20
[2018-03-09] MEDS: Ipratropium/Albuterol Sulfate 3 ML AMPUL.NEB INHALATION (17:53)
[2018-03-09 18:00] LABS: Red Blood Cells-Urine 0-5 SEEN /hpf (0-5); Squamous Epithelial Cells - UA 0-5 SEEN /hpf (5-10)
--- NOTE | 2018-03-09 18:26 | RAD_ITS ---
STUDY: X-RAY CHEST REASON FOR EXAM: Female, 62 years old. SOB/DYSPNEA AND NAUSEA. COULD NOT TAKE IN A BIG BREATH TECHNIQUE: Single frontal view of the chest. COMPARISON: 12-05-17 FINDINGS: Chronic appearing increased interstitial lung markings. There is no demonstrated pleural abnormality. Enlarged heart size. Normal mediastinum and judith. Normal visualized pulmonary arteries. There is atherosclerotic calcification of the aortic arch with tortuosity. There are diffuse degenerative changes of the visualized thoracic spine. There is degenerative osteoarthritis of the bilateral shoulders. There is no demonstrated abnormality of the visualized soft tissue structures of the upper abdomen. RAD/Chest 1 View (Portable) IMPRESSION: There are no acute findings. Electronically Signed: Ok Pandey MD at 18:58 EDT , Service support ,
[2018-03-09 18:29] VITALS: BP 183/67; PULSE 119; RESP 20; TEMP 39.3; O2SAT 91
[2018-03-09] MEDS: 0.9% Normal Saline 1,000 ML 999 ML IV (18:43)
[2018-03-09] MEDS: Acetaminophen 500 MG Tablet 1000 MG PO (18:43)
[2018-03-09 19:22] LABS: Lactic Acid 2.4 mmol/L (0.4-2.0)
--- NOTE | 2018-03-09 19:26 | ED.RN ---
lab called with critical lab results. lactic acid 2.4. Dr. Moffett made aware. no new orders placed
[2018-03-09 20:15] VITALS: BP 167/69; PULSE 102; RESP 24; O2SAT 97
--- NOTE | 2018-03-09 21:03 | PCM.HP.STD ---
Problem List (1) Fibromyalgia Status: Chronic (2) Diabetic gastroparesis Status: Chronic (3) Restless leg Status: Chronic (4) Migraine headache Status: Chronic Qualifiers: (5) Chronic generalized abdominal pain Status: Acute (6) Intractable vomiting with nausea Status: Acute (7) Knee effusion, right Status: Resolved (8) Iron deficiency anemia Status: Chronic Qualifiers: (9) Diverticulosis Status: Chronic Qualifiers: (10) Diverticulitis Status: Chronic (11) Depression Status: Chronic Qualifiers: (12) Morbid obesity with BMI of 40.0-44.9, adult Status: Chronic (13) HLD (hyperlipidemia) Status: Chronic Qualifiers: (14) Benign essential HTN Status: Chronic History of Present Illness Date of Admission: 03/09/18 Chief Complaint: Sepsis with unknown source The patient is a 62 year old female w/ h/o fibromyalgia, DMII, diabetic gastroparesis, restless leg, GERD, PAF, and seizure admitted for sepsis with unknown source. She has multiple ED visits for n/v and workup has been negative. However, in the past few days, she noted she has been more nauseous than usual. Her nausea is constant. She also has diarrhea. She has 3 episodes of water diarrhea but she takes reglan on a regular basis for her diabetic gastroparesis. She has diffuse cramping abdominal pain. Pain is similar to her past episode of pain. Pain does not radiate. Pain is episodic. Nothing makes it better or worse. Pain is not associated with any other symptoms. Past Medical History Past Medical History (Chronic Problems): Chronic Problems (Last Reviewed 03/10/18 @ 03:57 by Jose Oseguera MD) Fibromyalgia (Chronic) Diabetic gastroparesis (Chronic) Restless leg (Chronic) Migraine headache (Chronic) Weakness of both lower extremities (Chronic) GERD (gastroesophageal reflux disease) (Chronic) Seizure disorder (Chronic) Chronic anticoagulation (Chronic) Hyperuricemia (Chronic) Paroxysmal atrial fibrillation (Chronic) Chronic pain syndrome (Chronic) DM2 (diabetes mellitus, type 2) (Chronic) History of CVA (cerebrovascular accident) (Chronic) Takotsubo cardiomyopathy (Chronic) Iron deficiency anemia (Chronic) Diverticulosis (Chronic) Diverticulitis (Chronic) Depression (Chronic) Morbid obesity with BMI of 40.0-44.9, adult (Chronic) HLD (hyperlipidemia) (Chronic) Benign essential HTN (Chronic) Medical History: Medical History (Last Reviewed 03/10/18 @ 03:57 by Jose Oseguera MD) Diabetes mellitus E11.9 Diverticulitis K57.92 2 para 2 Z78.9 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 HTN (hypertension) I10 Allergies ciprofloxacin [From Cipro] Allergy (Verified 03/09/18 14:21) Shortness of breath ciprofloxacin HCl [From Cipro] Allergy (Verified 03/09/18 14:21) Shortness of breath cyclobenzaprine HCl [From Flexeril] Allergy (Verified 03/09/18 14:21) Rash ketorolac tromethamine [From Toradol] Allergy (Verified 03/09/18 14:21) Chest tightness sulfamethoxazole [From Bactrim] Allergy (Verified 03/09/18 14:21) Itching trimethoprim [From Bactrim] Allergy (Verified 03/09/18 14:21) Itching metformin Adverse Reaction (Verified 03/09/18 14:21) Other headache valacyclovir HCl [From Valtrex] Adverse Reaction (Verified 03/09/18 14:21) Other Home Medications: Ambulatory Orders Medication Instructions Recorded Allopurinol [Zyloprim] 100 mg PO DAILYCM 05/07/16 Aspirin [Aspirin, Baby] 81 mg PO DAILY 05/07/16 Montelukast [Singulair] 10 mg PO DAILY 05/07/16 Omeprazole [Prilosec] 40 mg PO DAILY 05/07/16 Ropinirole HCl [Requip] 1 mg PO QHS 05/07/16 Simvastatin [Zocor] 40 mg PO QHS 05/07/16 Insulin Lispro [Humalog Kwikpen] 20 - 40 unit SQ TIDCM 01/10/17 Levothyroxine [Synthroid] 75 mcg PO DAILY 02/25/17 Pregabalin [Lyrica] 150 mg PO BID 02/25/17 Insulin Degludec [Tresiba 200 unit SQ DAILY 04/02/17 Flextouch U-100] Hydrocodone/Acetaminophen 1 each PO Q6H PRN PRN 06/01/17 [Hydrocodone-Acetamin 5-325 mg] morphine SR tablet [Ms Contin] 15 mg PO BID 06/01/17 Lamotrigine 100 mg PO BID 12/05/17 Valsartan 80 mg PO DAILY 12/05/17 proMETHazine tablet [Phenergan] 25 mg PO TID PRN PRN 12/05/17 Metoclopramide [Reglan] 10 mg PO 4X/DAY PRN #20 tab 01/12/18 Ondansetron [Zofran Odt] 4 mg PO Q8H PRN PRN #10 tablet 02/26/18 Surgical History: appendectomy, cholecystectomy Lives: With Family Smoking Status: Never smoker - *Family History Paternal History Items: Heart Disease, - - Bone cancer Maternal History Items: COPD, Diabetes, Heart Disease, - - Smoker Review of Systems Constitutional: Reports: Fever. Denies: Chills, Weight Change HEENT: Denies: Head Aches, Sinus Congestion, Sinus Drainage Cardiovascular: Denies: Chest Pain, Palpitations Respiratory: Denies: Cough, Shortness of breath at rest, Sputum production Gastrointestinal: Reports: Abdominal Pain, Diarrhea. Denies: Nausea, Vomiting Genitourinary: Denies: Dysuria Musculoskeletal: Denies: Joint Pain, Joint Tenderness Skin: Denies: Rash, Wounds Neurological: Denies: Numbness, Tingling, Focal weakness Psychiatric: Denies: Anxiety, Depression, Homicidal Ideations, Suicidal Ideations Hematologic/ Lymphatic: Denies: Easy Bruising, Easy Bleeding VTE Information - Inpt Only VTE Present on Admission: No VTE Mechan Device Prophylaxis: SCD's VTE Pharm Prophylaxis ordered?: Yes - Physical Exam General: Alert, Oriented x3, Cooperative HEENT: Atraumatic, PERRLA, EOMI, Normocephalic Neck: Supple, No JVD, Negative Carotid Bruits Lungs: Clear to auscultation, Normal air movement Cardiovascular: Regular rate, No murmurs Abdomen: Bowel Sounds Present, Soft, Non Tender Extremities: No edema, Capillary Refill Less than 3 Seconds Skin: No rashes, No breakdown Musculoskeletal: No Tenderness to Palpation of Joints or Extremities Neurological: Cranial nerves II-XII grossly intact Psych/Mental Status: Normal Affect, Appropriate Vital Signs Temp Pulse Resp BP Pulse Ox 102.8 F H 102 H 24 H 167/69 H 97 03/09/18 18:29 03/09/18 20:15 03/09/18 20:15 03/09/18 20:15 03/09/18 20:15 Assessment/Plan All Active Problems (Last Reviewed 03/10/18 @ 03:57 by Jose Oseguera MD) Chronic generalized abdominal pain (Acute) Intractable vomiting with nausea (Acute) Knee effusion, right (Resolved) UTI (urinary tract infection) (Resolved) Hypoglycemia (Resolved) Viral upper respiratory infection (Resolved) Sepsis (Resolved) Chest pain (Resolved) Community acquired pneumonia (Resolved) History of pulmonary embolus (PE) (Resolved) Hypotension (Resolved) Intractable vomiting with nausea (Resolved) Pulmonary embolism (Resolved) 62 year old female w/ h/o fibromyalgia, DMII, diabetic gastroparesis, restless leg, GERD, PAF, and seizure admitted for sepsis with unknown source. 1) Sepsis with unknown source: Will start ceftriaxone for empiric treatment. If cultures negative, will probably stop antibiotic. Will consider autoimmune workup if persistent fever. UA, CT abdominal and chest xray negative. Cultures pending. 2) Lactic acidosis: Resolved with hydration. Monitor. 3) Diarrhea: Probably secondary to meds. Hold reglan. Monitor. 4) Chronic issues: fibromyalgia, DMII, diabetic gastroparesis, restless leg, GERD, PAF, and seizure Resume home meds. 5) Prophylaxis: SCD / heparin.
[2018-03-09 21:54] LABS: Erythrocyte Sedimentation Rate 43 mm/hr (0-30)
[2018-03-09 22:00] VITALS: BMI 44.8
[2018-03-09 22:09] VITALS: BP 142/67; PULSE 86; RESP 20; TEMP 37.1; O2SAT 93
[2018-03-09 22:14] VITALS: BMI 44.8
[2018-03-09] MEDS: morphine SR 15 MG Tablet PO (22:34)
[2018-03-09] MEDS: Pregabalin 75 MG Capsule 150 MG PO (22:34)
[2018-03-09] MEDS: Heparin Injection (Vial) 5,000 UNIT/ML VIAL 5000 UNIT SC (22:35)
[2018-03-09] MEDS: lamoTRIgine 100 MG Tablet PO (22:36)
[2018-03-09] MEDS: Pramipexole Di-HCl 0.5 MG Tablet PO (22:36)
[2018-03-09] MEDS: Atorvastatin Calcium 20 MG Tablet PO (22:36)
[2018-03-09] MEDS: 0.9% NaCl Peripheral Flush Adult/Peds IV (22:39)
[2018-03-09 22:49] LABS: Reflex Lactate? Y
[2018-03-09 22:50] LABS: Bedside Glucose 275 mg/dL (70-110)
[2018-03-09] MEDS: Ceftriaxone 1 GM/50 ML BAG IV (23:13)
[2018-03-09 23:36] VITALS: PULSE 80
[2018-03-10] VITALS (11 sets, daily range): BP systolic 117–147; BP diastolic 55–72; PULSE 68–98; RESP 16–18; TEMP 36.6–37.2; O2SAT 93–98
[2018-03-10 00:04] LABS: Lactic Acid 1.8 mmol/L (0.4-2.0)
[2018-03-10] MEDS: proMETHazine 25 MG Tablet PO (02:24)
--- NOTE | 2018-03-10 03:45 | RAD_ITS ---
STUDY: X-RAY CHEST REASON FOR EXAM: Female, 62 years old. FEVER TECHNIQUE: Single AP portable view of the chest. COMPARISON: None. FINDINGS: The lungs are clear and expanded. There is no demonstrated pleural abnormality. Normal size heart. Normal mediastinum and judith. Normal visualized pulmonary arteries. Normal visualized aortic arch and descending thoracic aorta. Normal visualized thoracic spine. There is degenerative osteoarthritis of the bilateral shoulders. There is no demonstrated abnormality of the visualized soft tissue structures of the upper abdomen. RAD/Chest 1 View (Portable) IMPRESSION: Normal x-ray examination of the chest. Electronically Signed: Bita Hunter MD at 13:11 EDT Tel , Service support ,
[2018-03-10] MEDS: Heparin Injection (Vial) 5,000 UNIT/ML VIAL 5000 UNIT SC ×3 (05:09→21:41)
[2018-03-10] MEDS: Levothyroxine 75 MCG Tablet PO (05:09)
[2018-03-10] MEDS: HYDROcodone Bitartrate/Apap 5/325 Tablet PO ×2 (05:11→23:19)
[2018-03-10 05:54] LABS: Absolute Lymphocyte Count 2.19 X10^3/ul (0.83-4.51); Absolute Neutrophil Count 11.6 X10^3/uL (2.0-7.7); Basophil# 0.03 X10^3/uL; Basophil% 0.2 % (0-1); Eosinophil# 0.22 X10^3/uL; Eosinophils% 1.5 % (0-5); Hemoglobin 9.9 g/dl (12.0-15.0); Lymphocyte # 2.19 X10^3/ul (4.0); Lymphocyte % 14.5 % (19-41); Mean Corpuscular Hgb 23.7 pg (27.0-32.0); Mean Corpuscular Volume 79.1 fL (81-99); Monocyte# 1.11 X10^3/uL; Monocyte% 7.3 % (0-10); Neutrophil # 11.59 X10^3/uL (2.7-7.7); Neutrophil % 76.4 % (47-70); Platelet Count 293 K/mm3 (150-450); RBC Distribution Width CV 15.6 % (11.6-14.6); RBC Distribution Width SD 45.2 fl (35.1-43.9); Red Blood Count 4.17 M/mm3 (4.2-5.4); White Blood Count 15.2 K/mm3 (4.4-11.0)
[2018-03-10 06:12] LABS: Anion Gap 9 (5-15); BUN 10 mg/dL (7-18); BUN/Creat Ratio 9.5 RATIO (10-20); Calcium,Total 8.3 mg/dL (8.5-10.1); Chloride 103 mmol/L (98-107); Creatinine, Serum 1.05 mg/dL (0.55-1.02); EST Glomerular Filtration Rate 56 mL/min (>60); Est Glom Filt Rate - Afr Amer 68 mL/min (>60); Estimated Creatinine Clearance 51.34 ml/min; Glucose 275 mg/dL (74-106); Potassium 3.9 mmol/L (3.5-5.1); Sodium Level 140 mmol/L (136-145)
[2018-03-10 06:35] LABS: POSITIVE COUNT NO; POSITIVE DIFFERENTIAL NO; POSITIVE MORPHOLOGY NO
--- NOTE | 2018-03-10 07:26 | PN_ITS ---
Subjective: Patient was seen and examined. Complains of feeling nauseous. No diarrhea since admission. She denies any fever or chills or shortness of breath Vitals/I&O's: Vital Signs Temp Pulse Resp BP Pulse Ox 97.9 F 72 16 147/72 H 98 03/10/18 05:18 03/10/18 05:18 03/10/18 05:18 03/10/18 05:18 03/10/18 05:18 Oxygen Delivery Method Room Air Weight: 126 kg Body Mass Index (BMI) 44.8 Intake and Output for Last 24 Hours 03/08/18 03/09/18 03/10/18 23:59 23:59 23:59 Intake Total 556 / 556 Balance 556 / 556 General: Alert, Oriented x3, Cooperative HEENT: Atraumatic, PERRLA, EOMI, Normocephalic Oral: Moist Mucosa Neck: Supple Lungs: Clear to auscultation, Normal air movement Cardiovascular: Regular rate, Regular Rhythm, Normal S1, Normal S2, No murmurs Abdomen: Bowel Sounds Present, Soft, Non Tender Extremities: No edema, Capillary Refill Less than 3 Seconds Skin: No rashes, No breakdown Musculoskeletal: No Tenderness to Palpation of Joints or Extremities Lymphatic: No Cervical, Supraclavicular, or Inguinal Adenopathy Neurological: Cranial nerves II-XII grossly intact, Neuro grossly intact Psych/Mental Status: Normal Affect, Appropriate Microbiology Past 72 Hours 03/09/18 23:54 Stool Stool Lactoferrin - Final Laboratory Results 03/09/18 22:20: Troponin I Cancelled 03/09/18 22:44: POC Glucose 275 H 03/09/18 22:56: Troponin I < 0.015 03/09/18 23:25: Lactic Acid 1.8 03/10/18 01:50: Troponin I < 0.015 03/10/18 05:10: WBC 15.2 H, RBC 4.17 L, Hgb 9.9 L, Hct 33.0 L, MCV 79.1 L, MCH 23.7 L, MCHC 30.0 L, RDW 15.6 H, RDW Differential 45.2 H, Plt Count 293, MPV 9.0 , Immature Gran % (Auto) 0.100, Neut % (Auto) 76.4 H, Lymph % (Auto) 14.5 L, [place] % (Auto) 7.3, Eos % (Auto) 1.5, Baso % (Auto) 0.2, Absolute Neuts (auto) 11.6 H, Absolute Lymphs (auto) 2.19, Total Counted Not Reportable 03/10/18 05:10: Sodium 140, Potassium 3.9, Chloride 103, Carbon Dioxide 28.0, Anion Gap 9, BUN 10, Creatinine 1.05 H, Estim Creat Clear Calc 51.34, Est GFR ( MDRD) Af Amer 68, Est GFR (MDRD) Non-Af 56 L, BUN/Creatinine Ratio 9.5 L, Glucose 275 H, Calcium 8.3 L, Troponin I < 0.015 Current Medications Hydrocodone Bitart/Acetaminophen ([place] 5mg-325mg) 1 tablet PO Q6H PRN PRN PRN Reason: PAIN Last Admin: 03/10/18 05:11 Dose: 1 tablet Allopurinol (Zyloprim) 100 mg PO DAILYCM [facility] Aspirin ([facility], [facility]) [facility] Atorvastatin Calcium (Lipitor) 20 mg PO QHS [facility] Last Admin: 03/09/18 22:36 Dose: 20 mg Heparin Sodium (Porcine) (Heparin Na) 5,000 unit SC Q8 [facility] Last Admin: 03/10/18 05:09 Dose: 5,000 u Ceftriaxone Sodium (Rocephin) 1 gm in 50 mls @ 100 mls/hr IV Q24 [facility] Last Admin: 03/09/18 23:13 Dose: 100 mls/hr Insulin Glargine (Lantus (Bkc)) 200 units SC DAILY [facility] Lamotrigine (Lamictal) 100 mg PO BID [facility] Last Admin: 03/09/18 22:36 Dose: 100 mg Levothyroxine Sodium (Synthroid) 75 mcg PO DAILY@0600 [facility] Last Admin: 03/10/18 05:09 Dose: 75 mcg Losartan Potassium (Cozaar) 25 mg PO DAILY [facility] Magnesium Hydroxide (Milk Of Magnesia) 30 ml PO DAILY PRN PRN PRN Reason: Constipation Montelukast Sodium (Singulair) 10 mg PO DAILY [facility] Morphine Sulfate (Ms Contin) 15 mg PO Q12 [facility] Last Admin: 03/09/18 22:34 Dose: 15 mg Nutritional Formula (Lactose Free) (Glucerna Shake) 120 ml PO 4X/DAY [facility] Ondansetron HCl (Zofran Odt) 4 mg PO Q8H PRN PRN PRN Reason: NAUSEA Pantoprazole Sodium (Protonix) 40 mg PO DAILY [facility] Pramipexole Dihydrochloride (Mirapex) 0.5 mg PO QHS [facility] Last Admin: 03/09/18 22:36 Dose: 0.5 mg Pregabalin (Lyrica) 150 mg PO BID [facility] Last Admin: 03/09/18 22:34 Dose: 150 mg Promethazine HCl (Phenergan Tablet) 25 mg PO TID PRN PRN PRN Reason: NAUSEA Last Admin: 03/10/18 02:24 Dose: 25 mg Sodium Chloride () 5 - 30 ml IV UD PRN PRN Reason: SALINE FLUSH Last Admin: 03/09/18 22:39 Dose: 20 ml Medical Necessity - Tobacco Use Smoking Status: Never smoker Assessment/Plan All Active Problems (Last Reviewed 03/10/18 @ 03:57 by Jose Oseguera MD) Chronic generalized abdominal pain (Acute) Intractable vomiting with nausea (Acute) Knee effusion, right (Resolved) UTI (urinary tract infection) (Resolved) Hypoglycemia (Resolved) Viral upper respiratory infection (Resolved) Sepsis (Resolved) Chest pain (Resolved) Community acquired pneumonia (Resolved) History of pulmonary embolus (PE) (Resolved) Hypotension (Resolved) Intractable vomiting with nausea (Resolved) Pulmonary embolism (Resolved) 2-year-old female with past medical history of type 2 diabetes with diabetic gastroparesis, seizure disorder, GERD, PAF comes in with complaints of nausea vomiting as well as diarrhea. 1. Acute gastroenteritis, no diarrhea since admission, remains nauseous, no fevers or chills, WBC count improved on Zosyn, will continue to monitor patient closely. 2. Nausea and vomiting secondary to diabetic gastroparesis, promethazine and Lyrica 3. Type 2 diabetes, uncontrolled, on 200 units of glargine daily, patient needs referral to endocrinology 4. Restless leg, continue home medication 5. Asthma atrial fibrillation, in normal sinus rhythm 6. DVT prophylaxis on heparin subcu Code Visit Inpatient E&M: 24780 Subs Hosp L2
[2018-03-10] MEDS: Pantoprazole Sodium 40 MG Tablet PO (08:18)
[2018-03-10] MEDS: Losartan Potassium 25 MG Tablet PO (08:18)
[2018-03-10] MEDS: Allopurinol 100 MG Tablet PO (08:18)
[2018-03-10] MEDS: lamoTRIgine 100 MG Tablet PO ×2 (08:18→21:41)
[2018-03-10] MEDS: Montelukast 10 MG Tablet PO (08:18)
[2018-03-10] MEDS: Aspirin 81 MG TAB.CHEW PO (08:18)
--- NOTE | 2018-03-10 09:28 | PCM.PN.HOSP ---
Vitals/I&O's: Vital Signs Temp Pulse Resp BP Pulse Ox 98.8 F 71 16 117/67 93 03/10/18 08:23 03/10/18 08:23 03/10/18 08:23 03/10/18 08:23 03/10/18 08:23 Oxygen Delivery Method Room Air Weight: 126 kg Body Mass Index (BMI) 44.8 Intake and Output for Last 24 Hours 03/08/18 03/09/18 03/10/18 23:59 23:59 23:59 Intake Total 556 / 556 Balance 556 / 556 Microbiology Past 72 Hours 03/09/18 23:54 Stool Stool Lactoferrin - Final Laboratory Results 03/09/18 22:20: Troponin I Cancelled 03/09/18 22:44: POC Glucose 275 H 03/09/18 22:56: Troponin I < 0.015 03/09/18 23:25: Lactic Acid 1.8 03/10/18 01:50: Troponin I < 0.015 03/10/18 05:10: WBC 15.2 H, RBC 4.17 L, Hgb 9.9 L, Hct 33.0 L, MCV 79.1 L, MCH 23.7 L, MCHC 30.0 L, RDW 15.6 H, RDW Differential 45.2 H, Plt Count 293, MPV 9.0, Immature Gran % (Auto) 0.100, Neut % (Auto) 76.4 H, Lymph % (Auto) 14.5 L, [place] % (Auto) 7.3, Eos % (Auto) 1.5, Baso % (Auto) 0.2, Absolute Neuts (auto) 11.6 H, Absolute Lymphs (auto) 2.19, Total Counted Not Reportable 03/10/18 05:10: Sodium 140, Potassium 3.9, Chloride 103, Carbon Dioxide 28.0, Anion Gap 9, BUN 10, Creatinine 1.05 H, Estim Creat Clear Calc 51.34, Est GFR (MDRD) Af Amer 68, Est GFR (MDRD) Non-Af 56 L, BUN/Creatinine Ratio 9.5 L, Glucose 275 H, Calcium 8.3 L, Troponin I < 0.015 Current Medications Hydrocodone Bitart/Acetaminophen ([place] 5mg-325mg) 1 tablet PO Q6H PRN PRN PRN Reason: PAIN Last Admin: 03/10/18 05:11 Dose: 1 tablet [facility]rim) [facility] Last Admin: 03/10/18 08:18 Dose: 100 mg Aspirin (Aspirin, Baby) [facility] Last Admin: 03/10/18 08:18 Dose: 81 mg Atorvastatin Calcium (Lipitor) 20 mg PO QHS [facility] Last Admin: 03/09/18 22:36 Dose: 20 mg Dextrose (D50w Syringe) 0 gm IV X1 PRN; Protocol PRN Reason: Hypoglycemia Glucagon () 1 mg IM .X1 PRN PRN Reason: Hypoglycemia Heparin Sodium (Porcine) (Heparin Na) 5,000 unit SC Q8 [facility] Last Admin: 03/10/18 05:09 Dose: 5,000 u Ceftriaxone Sodium (Rocephin) 1 gm in 50 mls @ 100 mls/hr IV Q24H [facility] Insulin Glargine (Lantus (Bkc)) 200 units SC DAILY [facility] Insulin Human Lispro (Humalog Kwikpen (Bk)) 0 unit SQ ACHS [facility] PRN Reason: Protocol Lamotrigine (Lamictal) 100 mg PO BID [facility] Last Admin: 03/10/18 08:18 Dose: 100 mg Levothyroxine Sodium (Synthroid) 75 mcg PO DAILY@0600 [facility] Last Admin: 03/10/18 05:09 Dose: 75 mcg Losartan Potassium (Cozaar) 25 mg PO DAILY [facility] Last Admin: 03/10/18 08:18 Dose: 25 mg Magnesium Hydroxide (Milk Of Magnesia) 30 ml PO DAILY PRN PRN PRN Reason: Constipation Montelukast Sodium (Singulair) 10 mg PO DAILY [facility] Last Admin: 03/10/18 08:18 Dose: 10 mg Morphine Sulfate (Ms Contin) 15 mg PO Q12 [facility] Last Admin: 03/09/18 22:34 Dose: 15 mg Nutritional Formula (Lactose Free) (Glucerna Shake) 120 ml PO 4X/DAY [facility] Ondansetron HCl (Zofran Odt) 4 mg PO Q8H PRN PRN PRN Reason: NAUSEA Pantoprazole Sodium (Protonix) 40 mg PO DAILY [facility] Last Admin: 03/10/18 08:18 Dose: 40 mg Pramipexole Dihydrochloride (Mirapex) 0.5 mg PO QHS [facility] Last Admin: 03/09/18 22:36 Dose: 0.5 mg Pregabalin (Lyrica) 150 mg PO BID [facility] Last Admin: 03/09/18 22:34 Dose: 150 mg Promethazine HCl (Phenergan Tablet) 25 mg PO TID PRN PRN PRN Reason: NAUSEA Last Admin: 03/10/18 02:24 Dose: 25 mg Sodium Chloride () 5 - 30 ml IV UD PRN PRN Reason: SALINE FLUSH Last Admin: 03/09/18 22:39 Dose: 20 ml Medical Necessity - Tobacco Use Smoking Status: Never smoker Assessment/Plan All Active Problems (Last Reviewed 03/10/18 @ 03:57 by Jose Oseguera MD) Chronic generalized abdominal pain (Acute) Intractable vomiting with nausea (Acute) Knee effusion, right (Resolved) UTI (urinary tract infection) (Resolved) Hypoglycemia (Resolved) Viral upper respiratory infection (Resolved) Sepsis (Resolved) Chest pain (Resolved) Community acquired pneumonia (Resolved) History of pulmonary embolus (PE) (Resolved) Hypotension (Resolved) Intractable vomiting with nausea (Resolved) Pulmonary embolism (Resolved)
[2018-03-10] MEDS: morphine SR 15 MG Tablet PO ×2 (09:41→21:41)
[2018-03-10] MEDS: Pregabalin 75 MG Capsule 150 MG PO ×2 (09:42→21:41)
[2018-03-10] MEDS: Insulin Lispro 100 UNIT/ML INSULN.PEN SQ ×2 (11:20→16:53)
[2018-03-10 11:26] LABS: Bedside Glucose 299 mg/dL (70-110)
[2018-03-10] MEDS: Piperacil/Tazobactam 3.375 GM/50 ML ML IV ×2 (13:45→21:42)
[2018-03-10 14:15] LABS: Pathologist Review Reviewed
--- NOTE | 2018-03-10 16:04 | CASEMGMT ---
See RN CM Assessment Link. Dc Plan Home, no needs identified. -pt has Palliative Care. Nurse did initial assessment @ home. Suellen CARDOZON RN ACM
[2018-03-10 17:20] LABS: Bedside Glucose 303 mg/dL (70-110)
[2018-03-10] MEDS: Atorvastatin Calcium 20 MG Tablet PO (21:41)
[2018-03-10] MEDS: Pramipexole Di-HCl 0.5 MG Tablet PO (21:41)
[2018-03-10] MEDS: 0.9% NaCl Peripheral Flush Adult/Peds IV (21:43)
[2018-03-10 22:16] LABS: Bedside Glucose 135 mg/dL (70-110)
[2018-03-11] VITALS (7 sets, daily range): BP systolic 111–120; BP diastolic 49–68; PULSE 68–86; RESP 16–18; TEMP 37.1; O2SAT 92–96
[2018-03-11] MEDS: proMETHazine 25 MG Tablet PO (02:21)
[2018-03-11] MEDS: Levothyroxine 75 MCG Tablet PO (05:40)
[2018-03-11] MEDS: Heparin Injection (Vial) 5,000 UNIT/ML VIAL 5000 UNIT SC (05:40)
[2018-03-11] MEDS: Piperacil/Tazobactam 3.375 GM/50 ML ML IV (05:41)
[2018-03-11] MEDS: 0.9% NaCl Peripheral Flush Adult/Peds IV (05:43)
[2018-03-11 06:17] LABS: Absolute Lymphocyte Count 2.73 X10^3/ul (0.83-4.51); Absolute Neutrophil Count 7.6 X10^3/uL (2.0-7.7); Basophil# 0.04 X10^3/uL; Basophil% 0.3 % (0-1); Hematocrit 31.9 % (37-47); Hemoglobin 9.7 g/dl (12.0-15.0); Lymphocyte # 2.73 X10^3/ul (4.0); Lymphocyte % 22.7 % (19-41); Mean Corp Hgb Conc 30.4 g/gl (32-36); Mean Corpuscular Hgb 24.2 pg (27.0-32.0); Mean Corpuscular Volume 79.6 fL (81-99); Mean Platelet Vol. 9.3 fl (6.2-12.0); Monocyte# 1.06 X10^3/uL; Monocyte% 8.8 % (0-10); Neutrophil # 7.59 X10^3/uL (2.7-7.7); Platelet Count 311 K/mm3 (150-450); RBC Distribution Width CV 15.8 % (11.6-14.6); RBC Distribution Width SD 45.9 fl (35.1-43.9); Red Blood Count 4.01 M/mm3 (4.2-5.4); White Blood Count 12.1 K/mm3 (4.4-11.0)
[2018-03-11 06:20] LABS: Anion Gap 7 (5-15); BUN 10 mg/dL (7-18); BUN/Creat Ratio 9.3 RATIO (10-20); Calcium,Total 8.1 mg/dL (8.5-10.1); Chloride 105 mmol/L (98-107); Creatinine, Serum 1.07 mg/dL (0.55-1.02); EST Glomerular Filtration Rate 55 mL/min (>60); Est Glom Filt Rate - Afr Amer 67 mL/min (>60); Estimated Creatinine Clearance 50.38 ml/min; Glucose 117 mg/dL (74-106); Potassium 3.8 mmol/L (3.5-5.1); Sodium Level 141 mmol/L (136-145)
[2018-03-11 06:22] LABS: POSITIVE COUNT NO; POSITIVE DIFFERENTIAL NO; POSITIVE MORPHOLOGY NO
[2018-03-11 07:50] LABS: Bedside Glucose 97 mg/dL (70-110)
[2018-03-11] MEDS: Allopurinol 100 MG Tablet PO (10:09)
[2018-03-11] MEDS: Losartan Potassium 25 MG Tablet PO (10:09)
[2018-03-11] MEDS: Aspirin 81 MG TAB.CHEW PO (10:09)
[2018-03-11] MEDS: lamoTRIgine 100 MG Tablet PO (10:09)
[2018-03-11] MEDS: morphine SR 15 MG Tablet PO (10:10)
[2018-03-11] MEDS: Pregabalin 75 MG Capsule 150 MG PO (10:10)
[2018-03-11] MEDS: Pantoprazole Sodium 40 MG Tablet PO (10:11)
[2018-03-11] MEDS: Montelukast 10 MG Tablet PO (10:11)
[2018-03-11] MEDS: Ondansetron ODT 4 MG Tablet PO (10:12)
[2018-03-11] MEDS: HYDROcodone Bitartrate/Apap 5/325 Tablet PO (10:12)
--- NOTE | 2018-03-11 11:20 | PCM.PN.HOSP ---
Subjective: Patient was seen and examined. Denies any new complaints. No more diarrhea since been admitted. Denies fever or chills or dizziness or palpitation. Blood sugars are slightly better. Patient requests referral for endocrinology -list of providers in the area given to her, official paper referral given. Objective: Physical exam: General: Alert, Oriented x3, Cooperative HEENT: Atraumatic, PERRLA, EOMI, Normocephalic Oral: Moist Mucosa Neck: Supple Lungs: Clear to auscultation, Normal air movement Cardiovascular: Regular rate, Regular Rhythm, Normal S1, Normal S2, No murmurs Abdomen: Bowel Sounds Present, Soft, Non Tender Extremities: No edema, Capillary Refill Less than 3 Seconds Skin: No rashes, No breakdown Musculoskeletal: No Tenderness to Palpation of Joints or Extremities Lymphatic: No Cervical, Supraclavicular, or Inguinal Adenopathy Neurological: Cranial nerves II-XII grossly intact, Neuro grossly intact Psych/Mental Status: Normal Affect, Appropriate Vitals/I&O's: Vital Signs Temp Pulse Resp BP Pulse Ox 98.8 F 68 18 120/68 95 03/11/18 08:30 03/11/18 08:30 03/11/18 08:30 03/11/18 08:30 03/11/18 08:30 Oxygen Delivery Method Room Air Weight: 126 kg Body Mass Index (BMI) 44.8 Intake and Output for Last 24 Hours 03/09/18 03/10/18 03/11/18 23:59 23:59 23:59 Intake Total 556 / 556 342 / 342 Output Total 1750 / 1750 Balance 556 / 556 -1408 / -1408 Microbiology Past 72 Hours 03/09/18 23:54 Stool Stool Lactoferrin - Final Laboratory Results 03/10/18 11:20: POC Glucose 299 H 03/10/18 16:23: POC Glucose 303 H 03/10/18 21:39: POC Glucose 135 H 03/11/18 05:35: WBC 12.1 H, RBC 4.01 L, Hgb 9.7 L, Hct 31.9 L, MCV 79.6 L, MCH 24.2 L, MCHC 30.4 L, RDW 15.8 H, RDW Differential 45.9 H, Plt Count 311, MPV 9.3, Immature Gran % (Auto) 0.200, Neut % (Auto) 63.0, Lymph % (Auto) 22.7, Creek % (Auto) 8.8, Eos % (Auto) 5.0, Baso % (Auto) 0.3, Absolute Neuts (auto) 7.6, Absolute Lymphs (auto) 2.73, Total Counted Not Reportable 03/11/18 05:35: Sodium 141, Potassium 3.8, Chloride 105, Carbon Dioxide 29.0, Anion Gap 7, BUN 10, Creatinine 1.07 H, Estim Creat Clear Calc 50.38, Est GFR (MDRD) Af Amer 67, Est GFR (MDRD) Non-Af 55 L, BUN/Creatinine Ratio 9.3 L, Glucose 117 H, Calcium 8.1 L 03/11/18 07:48: POC Glucose 97 Current Medications Hydrocodone Bitart/Acetaminophen ([place] 5mg-325mg) 1 tablet PO Q6H PRN PRN PRN Reason: PAIN Last Admin: 03/11/18 10:12 Dose: 1 [facility] Admin: 03/11/18 10:09 Dose: 100 mg [facility]irin [facility], [facility]) [facility] Last Admin: 03/11/18 10:09 Dose: 81 mg Atorvastatin Calcium (Lipitor) 20 mg PO QHS [facility] Last Admin: 03/10/18 21:41 Dose: 20 mg Dextrose (D50w Syringe) 0 gm IV X1 PRN; Protocol PRN Reason: Hypoglycemia Glucagon () 1 mg IM .X1 PRN PRN Reason: Hypoglycemia Heparin Sodium (Porcine) (Heparin Na) 5,000 unit SC Q8 [facility] Last Admin: 03/11/18 05:40 Dose: 5,000 u Piperacillin Sod/Tazobactam Sod (Zosyn) 3.375 gm in 50 mls @ 12.5 mls/hr IV Q8 [facility] Last Admin: 03/11/18 05:41 Dose: 100 mls/hr Insulin Glargine (Lantus (Bkc)) 200 units SC DAILY [facility] Last Admin: 03/11/18 10:10 Dose: 200 u Insulin Human Lispro (Humalog Kwikpen (Bkc)) 0 unit SQ ACHS FOR[facility] PRN Reason: Protocol Last Admin: 03/11/18 08:24 Dose: Not Given Lamotrigine (Lamictal) 100 mg PO BID [facility] Last Admin: 03/11/18 10:09 Dose: 100 mg Levothyroxine Sodium (Synthroid) 75 mcg PO DAILY@0600 [facility] Last Admin: 03/11/18 05:40 Dose: 75 mcg Losartan Potassium (Cozaar) 25 mg PO DAILY [facility] Last Admin: 03/11/18 10:09 Dose: 25 mg Magnesium Hydroxide (Milk Of Magnesia) 30 ml PO DAILY PRN PRN PRN Reason: Constipation Montelukast Sodium (Singulair) 10 mg PO DAILY [facility] Last Admin: 03/11/18 10:11 Dose: 10 mg Morphine Sulfate (Ms Contin) 15 mg PO Q12 [facility] Last Admin: 03/11/18 10:10 Dose: 15 mg Ondansetron HCl (Zofran Odt) 4 mg PO Q8H PRN PRN PRN Reason: NAUSEA Last Admin: 03/11/18 10:12 Dose: 4 mg Pantoprazole Sodium (Protonix) 40 mg PO DAILY [facility] Last Admin: 03/11/18 10:11 Dose: 40 mg Pramipexole Dihydrochloride (Mirapex) 0.5 mg PO QHS [facility] Last Admin: 03/10/18 21:41 Dose: 0.5 mg Pregabalin (Lyrica) 150 mg PO BID [facility] Last Admin: 03/11/18 10:10 Dose: 150 mg Promethazine HCl (Phenergan Tablet) 25 mg PO TID PRN PRN PRN Reason: NAUSEA Last Admin: 03/11/18 02:21 Dose: 25 mg Sodium Chloride () 5 - 30 ml IV UD PRN PRN Reason: SALINE FLUSH Last Admin: 03/11/18 05:43 Dose: 10 ml Medical Necessity - Tobacco Use Smoking Status: Never smoker Assessment/Plan All Active Problems (Last Reviewed 03/10/18 @ 03:57 by Jose Oseguera MD) Chronic generalized abdominal pain (Acute) Intractable vomiting with nausea (Acute) Knee effusion, right (Resolved) UTI (urinary tract infection) (Resolved) Hypoglycemia (Resolved) Viral upper respiratory infection (Resolved) Sepsis (Resolved) Chest pain (Resolved) Community acquired pneumonia (Resolved) History of pulmonary embolus (PE) (Resolved) Hypotension (Resolved) Intractable vomiting with nausea (Resolved) Pulmonary embolism (Resolved) 62-year-old female with past medical history of type 2 diabetes with diabetic gastroparesis, seizure disorder, GERD, PAF comes in with complaints of nausea vomiting as well as diarrhea. 1. Sepsis secondary to Acute gastroenteritis, POA, no diarrhea since admission, remains nauseous, no fevers or chills, WBC count improved on Zosyn, discharged on Augmentin to complete 1 week of antibiotics, will follow up with her primary care doctor for blood culture results 2. Nausea and vomiting secondary to diabetic gastroparesis, promethazine and Lyrica, resolved 3. Type 2 DM, slightly improved, on 200 units of glargine daily, on a customized insulin sliding scale patient needs referral to endocrinology 4. Restless leg, continue home medication 5. Asthma atrial fibrillation, in normal sinus rhythm 6. DVT prophylaxis on heparin subcu
--- NOTE | 2018-03-11 11:27 | PCM.DC ---
- Discharge Diagnoses Reason(s) for Visit for Discharge Instructions: Fever, nausea, vomiting You will use the following diet at home:: Calorie/Carbohydrate Controlled (specify 1200, 1400, etc), Cardiac Your food should be the consistency of: Regular Your liquids should be the consistency of: Regular/Thin Discharge Activity: Return to Normal Activity Additional Instructions: You should complete your antibiotics. Follow-up with your primary care doctor for blood culture results. You are referred to an facility maintenance mechanic. Continue to monitor your blood sugars. Allergies/Adverse Reactions: Allergies ciprofloxacin [From Cipro] Allergy (Verified 03/09/18 14:21) Shortness of breath ciprofloxacin HCl [From Cipro] Allergy (Verified 03/09/18 14:21) Shortness of breath cyclobenzaprine HCl [From Flexeril] Allergy (Verified 03/09/18 14:21) Rash ketorolac tromethamine [From Toradol] Allergy (Verified 03/09/18 14:21) Chest tightness sulfamethoxazole [From Bactrim] Allergy (Verified 03/09/18 14:21) Itching trimethoprim [From Bactrim] Allergy (Verified 03/09/18 14:21) Itching metformin Adverse Reaction (Verified 03/09/18 14:21) Other headache valacyclovir HCl [From Valtrex] Adverse Reaction (Verified 03/09/18 14:21) Other Medications to take at Discharge Allopurinol [Zyloprim] 100 mg PO DAILYCM 05/07/16 Aspirin [Aspirin, Baby] 81 mg PO DAILY 05/07/16 Montelukast [Singulair] 10 mg PO DAILY 05/07/16 Omeprazole [Prilosec] 40 mg PO DAILY 05/07/16 Ropinirole HCl [Requip] 1 mg PO QHS 05/07/16 Simvastatin [Zocor] 40 mg PO QHS 05/07/16 Insulin Lispro [Humalog Kwikpen] 20 - 40 unit SQ TIDCM 01/10/17 Levothyroxine [Synthroid] 75 mcg PO DAILY 02/25/17 Pregabalin [Lyrica] 150 mg PO BID 02/25/17 Insulin Degludec [Tresiba Flextouch U-100] 200 unit SQ DAILY 04/02/17 Hydrocodone/Acetaminophen [Hydrocodone-Acetamin 5-325 mg] 1 each PO Q6H PRN PRN 06/01/17 morphine SR tablet [Ms Contin] 15 mg PO BID 06/01/17 Lamotrigine 100 mg PO BID 12/05/17 Valsartan 80 mg PO DAILY 12/05/17 proMETHazine tablet [Phenergan tablet] 25 mg PO TID PRN PRN 12/05/17 Metoclopramide [Reglan] 10 mg PO 4X/DAY PRN #20 tab 01/12/18 Ondansetron [Zofran Odt] 4 mg PO Q8H PRN PRN #10 tablet 02/26/18 Amox/Clavulanate Tablet [Augmentin Tablet] 875 mg PO Q12H #8 tab 03/11/18 The following prescriptions were given: Amox/Clavulanate Tablet [Augmentin Tablet] 875 mg PO Q12H #8 tab Orders to be completed after discharge: CBC W/Diff, Automated Time Frame: 1 Week, Location: Laboratory Primary Care Physician: Devan Parks MD [Primary Care Provider] - Please follow up with your Primary Care Physician in: within 1-2 weeks of discharge Test Results: Test results from this visit will be discussed in further detail at your follow-up appointment, if applicable. When: Endocrinology with 1-2 weeks Proposed Discharge Date: 03/11/18
--- NOTE | 2018-03-11 11:33 | DCINST_ITS ---
- Discharge Diagnoses Reason(s) for Visit for Discharge Instructions: Fever, nausea, vomiting You will use the following diet at home:: Calorie/Carbohydrate Controlled ( specify 1200, 1400, etc), Cardiac Your food should be the consistency of: Regular Your liquids should be the consistency of: Regular/Thin Discharge Activity: Return to Normal Activity Additional Instructions: You should complete your antibiotics. Follow-up with your primary care doctor for blood culture results. You are referred to an eye glass frame polisher. Continue to monitor your blood sugars. Allergies/Adverse Reactions: Allergies ciprofloxacin [From Cipro] Allergy (Verified 03/09/18 14:21) Shortness of breath ciprofloxacin HCl [From Cipro] Allergy (Verified 03/09/18 14:21) Shortness of breath cyclobenzaprine HCl [From Flexeril] Allergy (Verified 03/09/18 14:21) Rash ketorolac tromethamine [From Toradol] Allergy (Verified 03/09/18 14:21) Chest tightness sulfamethoxazole [From Bactrim] Allergy (Verified 03/09/18 14:21) Itching trimethoprim [From Bactrim] Allergy (Verified 03/09/18 14:21) Itching metformin Adverse Reaction (Verified 03/09/18 14:21) Other headache valacyclovir HCl [From Valtrex] Adverse Reaction (Verified 03/09/18 14:21) Other Medications to take at Discharge Allopurinol [Zyloprim] 100 mg PO DAILYCM 05/07/16 Aspirin [Aspirin, Baby] 81 mg PO DAILY 05/07/16 Montelukast [Singulair] 10 mg PO DAILY 05/07/16 Omeprazole [Prilosec] 40 mg PO DAILY 05/07/16 Ropinirole HCl [Requip] 1 mg PO QHS 05/07/16 Simvastatin [Zocor] 40 mg PO QHS 05/07/16 Insulin Lispro [Humalog Kwikpen] 20 - 40 unit SQ TIDCM 01/10/17 Levothyroxine [Synthroid] 75 mcg PO DAILY 02/25/17 Pregabalin [Lyrica] 150 mg PO BID 02/25/17 Insulin Degludec [Tresiba Flextouch U-100] 200 unit SQ DAILY 04/02/17 Hydrocodone/Acetaminophen [Hydrocodone-Acetamin 5-325 mg] 1 each PO Q6H PRN PRN 06/01/17 morphine SR tablet [Ms Contin] 15 mg PO BID 06/01/17 Lamotrigine 100 mg PO BID 12/05/17 Valsartan 80 mg PO DAILY 12/05/17 proMETHazine tablet [Phenergan tablet] 25 mg PO TID PRN PRN 12/05/17 Metoclopramide [Reglan] 10 mg PO 4X/DAY PRN #20 tab 01/12/18 Ondansetron [Zofran Odt] 4 mg PO Q8H PRN PRN #10 tablet 02/26/18 Amox/Clavulanate Tablet [Augmentin Tablet] 875 mg PO Q12H #8 tab 03/11/18 The following prescriptions were given: Amox/Clavulanate Tablet [Augmentin Tablet] 875 mg PO Q12H #8 tab Orders to be completed after discharge: CBC W/Diff, Automated Time Frame: 1 Week, Location: Laboratory Primary Care Physician: Devan Parks MD [Primary Care Provider] - Please follow up with your Primary Care Physician in: within 1-2 weeks of discharge Test Results: Test results from this visit will be discussed in further detail at your follow- up appointment, if applicable. When: Endocrinology with 1-2 weeks Proposed Discharge Date: 03/11/18
--- NOTE | 2018-03-11 11:34 | PCM.DC.SUM ---
Discharge Date and Diagnosis Date of Admission: 03/09/18 Date of Discharge: 03/11/18 - Primary Discharge Diagnosis Sepsis secondary to acute gastroenteritis Acute gastroenteritis, unclear etiology Leukocytosis Acute kidney injury - Secondary Discharge Diagnosis Chronic Problems (Last Reviewed 03/10/18 @ 03:57 by Jose Oseguera MD) Fibromyalgia (Chronic) Diabetic gastroparesis (Chronic) Restless leg (Chronic) Migraine headache (Chronic) Weakness of both lower extremities (Chronic) GERD (gastroesophageal reflux disease) (Chronic) Seizure disorder (Chronic) Chronic anticoagulation (Chronic) Hyperuricemia (Chronic) Paroxysmal atrial fibrillation (Chronic) Chronic pain syndrome (Chronic) DM2 (diabetes mellitus, type 2) (Chronic) History of CVA (cerebrovascular accident) (Chronic) Takotsubo cardiomyopathy (Chronic) Iron deficiency anemia (Chronic) Diverticulosis (Chronic) Diverticulitis (Chronic) Depression (Chronic) Morbid obesity with BMI of 40.0-44.9, adult (Chronic) HLD (hyperlipidemia) (Chronic) Benign essential HTN (Chronic) Hospital Course and Treatment Imaging Results: Clinical Impression(s) from Imaging Studies Abdomen/Pelvis CT 03/09/18 16:08 IMPRESSION: No acute abnormality is demonstrated. Electronically Signed: Lucia Medley MD at 17:06 EDT cf, Service support , Chest X-Ray 03/09/18 18:26 IMPRESSION: There are no acute findings. Electronically Signed: Ok Pandey MD at 18:58 EDT , Service support , Chest X-Ray 03/10/18 03:45 IMPRESSION: Normal x-ray examination of the chest. Electronically Signed: Bita Hunter MD at 13:11 EDT Tel , Service support , None Operations: None, - - EGD Procedures: None Summary of Care Provided: 62-year-old female with past medical history of type 2 DM, poorly controlled with diabetic gastroparesis, seizure disorder, GERD, PAF comes in with complaints of nausea vomiting as well as diarrhea. She was found to have a fever of 102.8F in the ED, white cell count was elevated at 19.1 with neutrophilia. Stool lactoferrin was positive. Patient however did not have any more diarrhea on the floors. Enteric panel ordered was not collected. The cultures was pending at time of discharge. Urine cultures were negative. 1. Sepsis secondary to Acute gastroenteritis, POA, managed on IV Zosyn and discharged on Augmentin to complete 1 week of antibiotics. 2. Nausea and vomiting secondary to diabetic gastroparesis, promethazine and Lyrica, improved. 3. Type 2 diabetes, uncontrolled, on 200 units of glargine daily, customized insulin sliding scale, referred to endocrinology. 4. Restless leg syndrome, to new home medication 5. Paroxysmal atrial fibrillation, in normal sinus rhythm Discharge Diet: Low fat/ Low Cholesterol, 2000 mg Sodium Diet Discharge Activity: Return to Normal Activity Home Medications: Medications to take at Discharge Allopurinol [Zyloprim] 100 mg PO DAILYCM 05/07/16 Aspirin [Aspirin, Baby] 81 mg PO DAILY 05/07/16 Montelukast [Singulair] 10 mg PO DAILY 05/07/16 Omeprazole [Prilosec] 40 mg PO DAILY 05/07/16 Ropinirole HCl [Requip] 1 mg PO QHS 05/07/16 Simvastatin [Zocor] 40 mg PO QHS 05/07/16 Insulin Lispro [Humalog Kwikpen] 20 - 40 unit SQ TIDCM 01/10/17 Levothyroxine [Synthroid] 75 mcg PO DAILY 02/25/17 Pregabalin [Lyrica] 150 mg PO BID 02/25/17 Insulin Degludec [Tresiba Flextouch U-100] 200 unit SQ DAILY 04/02/17 Hydrocodone/Acetaminophen [Hydrocodone-Acetamin 5-325 mg] 1 each PO Q6H PRN PRN 06/01/17 morphine SR tablet [Ms Contin] 15 mg PO BID 06/01/17 Lamotrigine 100 mg PO BID 12/05/17 Valsartan 80 mg PO DAILY 12/05/17 proMETHazine tablet [Phenergan tablet] 25 mg PO TID PRN PRN 12/05/17 Metoclopramide [Reglan] 10 mg PO 4X/DAY PRN #20 tab 01/12/18 Ondansetron [Zofran Odt] 4 mg PO Q8H PRN PRN #10 tablet 02/26/18 Amox/Clavulanate Tablet [Augmentin Tablet] 875 mg PO Q12H #8 tab 03/11/18 Following Prescrptions Were Given to Patient: Amox/Clavulanate Tablet [Augmentin Tablet] 875 mg PO Q12H #8 tab Primary Care Physician: Devan Parks MD [Primary Care Provider] - Please follow up with your Primary Care Physician in: within 1-2 weeks of discharge When: Endocrinology with 1-2 weeks Disposition: Home Minutes spent on discharge:: 40 Patient Condition:: Stable Medical Necessity - Tobacco Use Smoking Status: Never smoker Tobacco Use: Non-smoker Meaningful Use Info Meaningful Use Diagnoses (Choose all that apply): None applicable Code Visit Inpatient E&M: 94196 Disch Hosp
[2018-03-11 12:00] LABS: Bedside Glucose 224 mg/dL (70-110)
--- NOTE | 2018-03-11 12:03 | PCA ---
scheduled a follow up appointment with her primary care physician. Also was going to schedule an appointment for an middle school humanities teacher but per doctor suazo she let social workers know to find one with her insurance that can get her in one as soon as possible
[2018-03-11] MEDS: Insulin Lispro 100 UNIT/ML INSULN.PEN SQ (12:27)
--- NOTE | 2018-03-11 13:17 | CASEMGMT ---
Social Work Note SW provided ALMA Jackson with scripts for endocrinology appointment and provided Renetta with list of milk collector in [place] and [facility]. Pt is encouraged to follow up with milk collector after discharge from [facility]. Romana Licona VAULT MECHANIC, PERSONAL INJURY ATTORNEY
--- NOTE | 2018-03-12 09:02 | CASEMGMT ---
Social Work Note Pt discharged home yesterday. SW placed a call to [facility] as pt has palliative care and spoke with RN Angelica to update her of this. Romana Licona TEACHER ASSISTANT, COTTON FACTOR
--- NOTE | 2018-03-12 15:13 | CASEMGMT ---
RN CM Discharge Follow-up Phone Call: CYNTHIA: Chayo Strata: 4 Call Date: 03/12/18 Discharge Date: 03/11/18 Time of Call: 1510 Duration: 1 min Admitting Diagnosis: Sepsis RN CM attempted follow-up phone call after recent hospitalization. No answer, voice message left with return contact information. Follow-up appts made with PCP for 03/18 and endocrinology 04/10/18.
== END 2018-03-11 13:25 | disposition home or self-care (01) | DRG 872 ==
LOC: ED 16:38 → MS3 21:02
PROVIDERS: Admitting Provider Internal Medicine; Emergency Provider Emergency Medicine; Family Provider Family Medicine; PCP Family Medicine; Visit Provider Internal Medicine
DX: A41.9 Sepsis, unspecified organism (principal); N17.9 Acute kidney failure, unspecified; Z68.41 Body mass index [BMI] 40.0-44.9, adult; I51.81 Takotsubo syndrome; K52.9 Noninfective gastroenteritis and colitis, unspecified; M79.7 Fibromyalgia; K31.84 Gastroparesis; E11.43 Type 2 diabetes mellitus with diabetic autonomic (poly)neuropathy; K21.9 Gastro-esophageal reflux disease without esophagitis; G25.81 Restless legs syndrome; Z86.73 Personal history of transient ischemic attack (TIA), and cerebral infarction without residual deficits; E66.01 Morbid (severe) obesity due to excess calories; Z71.3 Dietary counseling and surveillance; E78.5 Hyperlipidemia, unspecified; I10 Essential (primary) hypertension; F32.9 Major depressive disorder, single episode, unspecified; I48.0 Paroxysmal atrial fibrillation; I25.2 Old myocardial infarction; Z86.711 Personal history of pulmonary embolism; E11.65 Type 2 diabetes mellitus with hyperglycemia; G89.4 Chronic pain syndrome
CPT/HCPCS: 36415; 71045; 74176; 80048; 80053; 81001; 82962; 83605; 83630; 83690; 84484; 85025; 85652; 86140; 87040; 87086; 94640; 94762; 97162; 97802; 99283; J7030; J7040; P9612; A4216

== ENCOUNTER 2018-03-12 17:19 | Emergency (ER) | payer MEDICARE, SELFPAY ==
[2018-03-12 17:19] VITALS: BP 192/92; PULSE 97; RESP 24; TEMP 36.6; O2SAT 95; BMI 44.6
--- NOTE | 2018-03-12 17:44 | EKG12_ITS ---
Test Reason : Blood Pressure : / mmHG Vent. Rate : 087 BPM Atrial Rate : 087 BPM P-R Int : 148 ms QRS Dur : 086 ms QT Int : 394 ms P-R-T Axes : 014 -19 047 degrees QTc Int : 474 ms Normal sinus rhythm Leftward axis Poor R wave progression Confirmed by JOSE MANUEL CURRY, SHAHIDA ([id number]), photography editor MAIKEL MULLEN ([id number]) on 03/14/2018 1:28:23 PM Referred By: SIMI Confirmed By:SHAHIDA RICHARD MD
[2018-03-12 17:52] VITALS: PULSE 89; RESP 20
[2018-03-12] MEDS: Ipratropium/Albuterol Sulfate 3 ML AMPUL.NEB INHALATION (17:52)
[2018-03-12] MEDS: Ondansetron 4 MG/2 ML Vial IV (18:34)
[2018-03-12 18:40] VITALS: BP 177/70; PULSE 90; RESP 17; O2SAT 92
[2018-03-12 18:42] LABS: Absolute Lymphocyte Count 1.82 X10^3/ul (0.83-4.51); Absolute Neutrophil Count 7.8 X10^3/uL (2.0-7.7); Basophil# 0.02 X10^3/uL; Basophil% 0.2 % (0-1); Eosinophil# 0.35 X10^3/uL; Eosinophils% 3.2 % (0-5); Hematocrit 35.6 % (37-47); Hemoglobin 10.8 g/dl (12.0-15.0); Lymphocyte # 1.82 X10^3/ul (4.0); Lymphocyte % 16.9 % (19-41); Mean Corp Hgb Conc 30.3 g/gl (32-36); Mean Corpuscular Volume 79.1 fL (81-99); Mean Platelet Vol. 9.1 fl (6.2-12.0); Monocyte# 0.83 X10^3/uL; Monocyte% 7.7 % (0-10); Neutrophil # 7.75 X10^3/uL (2.7-7.7); Neutrophil % 71.8 % (47-70); POSITIVE COUNT NO; POSITIVE DIFFERENTIAL NO; POSITIVE MORPHOLOGY NO; Platelet Count 314 K/mm3 (150-450); RBC Distribution Width CV 15.6 % (11.6-14.6); RBC Distribution Width SD 44.7 fl (35.1-43.9); White Blood Count 10.8 K/mm3 (4.4-11.0)
--- NOTE | 2018-03-12 18:45 | RAD_ITS ---
STUDY: X-RAY CHEST REASON FOR EXAM: Female, 62 years old. Short of breath TECHNIQUE: PA and lateral COMPARISON: March 10, 2018 FINDINGS: Diminished inspiratory effort is seen however the lungs are clear of focal infiltration.. There is no demonstrated pleural abnormality. Normal size heart. Normal mediastinum and judith. Normal visualized pulmonary arteries. Normal visualized aortic arch and descending thoracic aorta. Dorsal spine demonstrates mild spondylosis Normal visualized ribs, clavicles, and shoulders. There is no demonstrated abnormality of the visualized soft tissue structures of the upper abdomen. RAD/Chest PA and Lateral IMPRESSION: Diminished inspiratory effort. No acute disease Electronically Signed: Ray Joy MD at 19:03 EDT , Service support ,
[2018-03-12 19:00] LABS: Anion Gap 7 (5-15); BUN 6 mg/dL (7-18); Calcium,Total 9.2 mg/dL (8.5-10.1); Chloride 101 mmol/L (98-107); EST Glomerular Filtration Rate 59 mL/min (>60); Est Glom Filt Rate - Afr Amer 72 mL/min (>60); Estimated Creatinine Clearance 53.91 ml/min; Glucose 229 mg/dL (74-106); Sodium Level 137 mmol/L (136-145)
[2018-03-12 19:09] LABS: BNP,B-Type NATRIURETIC PEPTIDE 51.5 pg/mL (0-100)
[2018-03-12 20:08] VITALS: PULSE 90; RESP 18
[2018-03-12] MEDS: Albuterol 2.5 MG/3 ML VIAL.NEB. INHALATION (20:08)
[2018-03-12 20:25] VITALS: O2SAT 97
--- NOTE | 2018-03-12 21:22 | ED.DCSUM_ITS ---
- ER Visit Summary Date of Service: 03/12/18 Chief Complaint: Dyspnea History of Present Illness: The patient is a 62 F who was discharged in the hospital yesterday after admission for gastroenteritis. Patient states she was on oxygen at night and was told she would need a sleep study as an outpatient. Patient noted more shortness of breath today, worse when she lies flat. She denies chest pain. Past history significant for prior stroke, GA, diabetes, hypertension, high cholesterol, fibromyalgia, paroxysmal A. fib, gastroparesis, reflux disease. She does not have known history of congestive heart failure. Physical Examination: Vital signs significant for blood pressure of 192/92, temperature 97.8, heart rate 97, respiratory rate 24, pulse ox 95% on room air. Head and neck examination is unremarkable. Heart is regular rate and rhythm. Lung sounds with scant expiratory wheezes. There is mild crackles at the bases , left greater than right. Abdomen is soft nontender. Hypoactive bowel sounds noted throughout. Lower external examination does not reveal significant edema. Test Results: EKG is sinus at 87 with no sign of acute ischemia. Two-view chest x-ray read by radiology shows diminished inspiratory effort. No acute disease noted. CBC significant for hemoglobin 10.8. Chemistry studies unremarkable. BNP is normal. Emergency Department Course and Treatment: Patient is given a DuoNeb treatment along with Zofran. On repeat evaluation she reported no significant improvement when just lying in bed. She is given an additional albuterol treatment. She was ambulated in the [place] with pulse ox and sats remained between 95 and 97%. Patient states that she does feel slightly improved after getting the breathing treatments. Should be sent home with an albuterol inhaler. I did encourage her to call her doctor tomorrow to set up the outpatient sleep study. Treatment Plan: [] Disposition: Discharge Impression: Dyspnea This note was generated with [employer] dictation software. It may contain incorrect words, spelling, and punctuation that were not noted in review of the chart prior to signing ED Disposition - Plan for ED Patient: Disposition: Home or Assisted Living Chief Complaint: Shortness of Breath Instructions: ED Dyspnea Shortness of Breath Referrals: Devan Parks MD [Primary Care Provider] - As soon as possible
[2018-03-12 21:44] VITALS: BP 131/74; PULSE 90; RESP 20; O2SAT 96
== END 2018-03-12 21:53 | disposition home or self-care (01) ==
PROVIDERS: Emergency Provider Emergency Medicine; Family Provider Family Medicine; PCP Family Medicine
DX: R06.00 Dyspnea, unspecified (principal); R11.0 Nausea; I25.2 Old myocardial infarction; K21.9 Gastro-esophageal reflux disease without esophagitis; E11.43 Type 2 diabetes mellitus with diabetic autonomic (poly)neuropathy; K31.84 Gastroparesis; I10 Essential (primary) hypertension; E78.00 Pure hypercholesterolemia, unspecified; M79.7 Fibromyalgia; I48.0 Paroxysmal atrial fibrillation; F41.9 Anxiety disorder, unspecified; F32.9 Major depressive disorder, single episode, unspecified; G43.909 Migraine, unspecified, not intractable, without status migrainosus; Z87.19 Personal history of other diseases of the digestive system; Z86.73 Personal history of transient ischemic attack (TIA), and cerebral infarction without residual deficits; Z79.82 Long term (current) use of aspirin; Z79.4 Long term (current) use of insulin; Z79.899 Other long term (current) drug therapy
CPT/HCPCS: 36415; 71046; 80048; 83880; 85025; 93005; 94640; 96374; 99284; A4216; J2405

== ENCOUNTER → 2018-03-24 15:14 | Outpatient (CLI) | payer BC, SELFPAY ==
--- NOTE | 2018-03-24 15:20 | RAD_ITS ---
STUDY: X-RAY CHEST REASON FOR EXAM: Female, 62 years old. Shortness of breath. TECHNIQUE: PA and lateral views of the chest. COMPARISON: None. FINDINGS: The lungs are clear and expanded. There is no demonstrated pleural abnormality. Normal size heart. Normal mediastinum and judith. Normal visualized pulmonary arteries. Normal visualized aortic arch and descending thoracic aorta. There are mild degenerative changes of the visualized thoracic spine. Normal visualized ribs, clavicles, and shoulders. There is no demonstrated abnormality of the visualized soft tissue structures of the upper abdomen. RAD/Chest PA and Lateral IMPRESSION: No acute cardiopulmonary disease. Electronically Signed: William Gupta DO at 18:43 EDT Tel [phone], Service support ,
== END ==
PROVIDERS: Family Provider Family Medicine; PCP Family Medicine; Visit Provider Physician Assistant Surgical
DX: R06.02 Shortness of breath (principal)
CPT/HCPCS: 71046

== ENCOUNTER 2018-04-06 09:05 | Emergency (ER) | payer MEDICARE, SELFPAY ==
[2018-04-06 09:06] VITALS: BP 207/93; PULSE 104; RESP 18; TEMP 36.4; O2SAT 97; BMI 45.6
[2018-04-06] MEDS: Haloperidol Lactate 5 MG/ML Vial IM (09:32)
[2018-04-06] MEDS: Ondansetron ODT 4 MG Tablet 8 MG PO (09:32)
--- NOTE | 2018-04-06 09:32 | ED.DCSUM_ITS ---
- ER Visit Summary Date of Service: 04/06/18 Chief Complaint: Nausea and vomiting History of Present Illness: The patient is a 62 F who states that 6:00 this morning she began to have nausea and vomiting. This is been an ongoing very chronic issue for the patient. The patient recently was started on haloperidol for the vomiting as well as methadone for chronic pain. The patient has a previous medical history of fibromyalgia, RLS, PAF, gastroparesis, GERD, hypertension, hypercholesterolemia. No other new medications for the patient. No fevers. No change in breathing or chest pain. She does not feel bloated. She has not had any diarrheal stools. She states her stools are loose but that is not abnormal for her. No recent fevers. Vision states that her chest is also sore to touch. Physical Examination: Afebrile noted hypertension 207/93 with a heart rate of 104. Gen: Well-nourished well-developed obese Head: Normocephalic atraumatic Eyes: Perrl EOMI ENT: TMs clear no rhinorrhea moist mucous membranes Neck: Supple no lymphadenopathy no JVD nontender CVS: Regular rate rhythm no murmurs normal S1-S2 Respiratory: No distress clear to auscultation bilaterally chest tender to palpation anteriorly Abdomen: Soft nontender nondistended normal bowel sounds no masses Back: Nontender Extremity: Nontender 1+ edema bilaterally of the lower extremities Skin: Normal color no rash Neuro: alert orientated ?3 CN II-XII intact normal strength sensation reflexes gait cerebellar Psych: Normal affect normal mood Test Results: EKG shows a sinus rhythm at a rate of 95 unchanged from prior. Emergency Department Course and Treatment: Patient received a dose of intramuscular Haldol and oral Zofran. She has tolerated p.o. She is not vomiting. She is sleeping on repeat examination but is easily awoken. Noted hypoxemia when she sleeps and she tells me she has been evaluated for sleep apnea. Impression: 1. Nausea vomiting 2. Chest wall pain This note was generated with [employer] dictation software. It may contain incorrect words, spelling, and punctuation that were not noted in review of the chart prior to signing ED Disposition - Plan for ED Patient: Disposition: Home or Assisted Living Chief Complaint: Nausea/Vomiting Instructions: ED Nausea Vomiting Referrals: Devan Parks MD [Primary Care Provider] - As soon as possible
--- NOTE | 2018-04-06 09:48 | ED.RN ---
PT RETCHING/DRY HEAVING, WHEN FINISHED, STS I AM HAVING CP. RESPIRATORY CALLED FOR EKG. DR BAZAN NOTIFIED.
[2018-04-06 09:53] VITALS: BP 132/82; PULSE 89; RESP 14; O2SAT 93
[2018-04-06 10:40] VITALS: BP 151/60; PULSE 88; RESP 20; O2SAT 97
--- NOTE | 2018-04-06 10:44 | ED.RN ---
SLEEPING, NO FURTHER DRY HEAVING NOTED.
[2018-04-06 10:50] VITALS: PULSE 86; RESP 13; O2SAT 97
[2018-04-06] MEDS: Metoclopramide 10 MG Tablet PO (11:03)
== END 2018-04-06 11:06 | disposition home or self-care (01) ==
PROVIDERS: Emergency Provider Emergency Medicine; Family Provider Family Medicine; PCP Family Medicine
DX: R11.2 Nausea with vomiting, unspecified (principal); R07.89 Other chest pain; R05 Cough; E66.9 Obesity, unspecified; M79.7 Fibromyalgia; G25.81 Restless legs syndrome; I48.0 Paroxysmal atrial fibrillation; K31.84 Gastroparesis; K21.9 Gastro-esophageal reflux disease without esophagitis; I10 Essential (primary) hypertension; E78.00 Pure hypercholesterolemia, unspecified; Z90.49 Acquired absence of other specified parts of digestive tract; Z79.82 Long term (current) use of aspirin; Z79.899 Other long term (current) drug therapy
CPT/HCPCS: 93005; 96372; 99284

== ENCOUNTER 2018-04-09 10:36 | Emergency (ER) | payer MEDICARE, SELFPAY ==
[2018-04-09 10:37] VITALS: BP 217/104; PULSE 102; RESP 18; TEMP 36.4; O2SAT 95; BMI 44.2
--- NOTE | 2018-04-09 10:55 | ED.VISSUMM ---
- ER Visit Summary Date of Service: 04/09/18 Chief Complaint: Nausea and vomiting History of Present Illness: The patient is a 62 F patient with a history of frequent vomiting episodes. This is been ongoing for 4 years. She states that she needs a intravenous medication treatment for this but her insurance would not approve it. Today the last 5 hours she has had nausea vomiting. No diarrhea. No hematemesis or melena. No abdominal pain. Similar no prior episodes. Physical Examination: Well-appearing older female. Vital signs are stable afebrile. H EENT exam mildly dry mucous membranes. Neck nontender no lymphadenopathy. Lungs clear to auscultation bilaterally. Heart regular rate and rhythm no murmur tender. Normal bowel sounds no peritoneal signs. Nontender. Nondistended. No hernias or masses. No signs of obstruction. Moving all 4 extremities. Neurovascular intact. Back nontender. Skin unremarkable. Neurologic exam awake and alert with no focal motor deficits. Test Results: None Emergency Department Course and Treatment: Patient treated with IV fluids and IV Reglan. Repeat exam the patient is doing well at 1230. Abdomen is benign. Nontender. She does feel better after the IV medication. She feels comfortable being discharged. Treatment Plan: Zofran prescription for home. Disposition: Discharge Impression: Acute and recurrent nausea and vomiting This note was generated with [employer] dictation software. It may contain incorrect words, spelling, and punctuation that were not noted in review of the chart prior to signing ED Disposition - Plan for ED Patient: Chief Complaint: Nausea/Vomiting Referrals: Devan Parks MD [Primary Care Provider] -
[2018-04-09] MEDS: 0.9% Normal Saline 1,000 ML 1000 ML IV (11:12)
[2018-04-09] MEDS: Metoclopramide 10 MG/2 ML Vial IV (11:13)
--- NOTE | 2018-04-09 12:32 | ED.DEP ---
ED Disposition - Plan for ED Patient: Disposition: Home or Assisted Living Chief Complaint: Nausea/Vomiting Instructions: ED Nausea Vomiting Prescriptions: Ondansetron [Zofran Odt] 4 mg PO Q4H PRN PRN #10 tab.rapdis PRN Reason: Nausea Referrals: Devan Parks MD [Primary Care Provider] - Additional Instructions: Zofran as needed for nausea Plenty of fluids and rest. Follow-up with your doctor or return if worse.
[2018-04-09 12:40] VITALS: BP 127/82; PULSE 79; RESP 15; O2SAT 99
== END 2018-04-09 12:41 | disposition home or self-care (01) ==
PROVIDERS: Emergency Provider Emergency Medicine; Family Provider Family Medicine; PCP Family Medicine
DX: R11.2 Nausea with vomiting, unspecified (principal); I25.2 Old myocardial infarction; E11.9 Type 2 diabetes mellitus without complications; I10 Essential (primary) hypertension; Z86.2 Personal history of diseases of the blood and blood-forming organs and certain disorders involving the immune mechanism; Z90.49 Acquired absence of other specified parts of digestive tract; Z79.82 Long term (current) use of aspirin; Z79.4 Long term (current) use of insulin; Z79.899 Other long term (current) drug therapy
CPT/HCPCS: 96361; 96374; 99283

== ENCOUNTER 2018-04-17 22:41 | Emergency (ER) | payer MEDICARE, SELFPAY ==
[2018-04-17 22:43] VITALS: BP 172/86; PULSE 97; RESP 20; TEMP 36.9; O2SAT 91; BMI 44.4
--- NOTE | 2018-04-17 23:13 | ED.VISSUMM ---
- ER Visit Summary Date of Service: 04/17/18 Chief Complaint: Vomiting History of Present Illness: The patient is a 62 F vomiting ?2 starting 2 hours ago. No hematemesis. No diarrhea. States short of breath with this. She is mild productive cough for 10 days, no wheezing. No fevers. No chest pains. States no bowel movement 5 days of decreased flatus. History of diabetic gastroparesis. Tried Phenergan with no relief. Similar presentations in the past. No home oxygen. cholecystectomy and appendectomy in the past. Physical Examination: General: Alert and oriented ?3, no acute distress HEENT: Normocephalic, atraumatic. Moist mucosa membranes Neck: supple, nontender. Cardiovascular: Regular rate and rhythm, no murmurs Respiratory: Normal breath sounds, symmetric, no distress Abdomen: Soft, nontender, nondistended. Normal bowel sounds. Extremities: Nontender, no edema, pulses intact ?4 Neuro: no focal neurological deficits. Test Results: EKG sinus rate of 90, no ST or T-wave changes. WBC 13.2. Hemoglobin 10.2. Any 1.09. Lipase normal. LFTs stable. Abdominal series x-ray: No acute process Emergency Department Course and Treatment: EKG per protocol obtain was normal. Patient no chest pains. Abdominal workup with labs and white count 13.2. Glucose was 292. Patient given IV fluids Reglan and Benadryl. She has no urine symptoms. With her dyspnea and her vomiting, abdominal series obtained shows no acute process. Initially 91%, she is ambulated range from 91 and 96% per nursing. She is feeling better however she still slightly nauseated requests additional nausea medicine initial order for Zofran however lost IV therefore Phenergan IM was given she has Phenergan at home. She will continue oral hydration. She will monitor symptoms follow with her PCP. Signs and symptoms discussed return. All questions were answered. Treatment Plan: [] Disposition: Discharge Impression: 1. Nausea and vomiting 2. Upper respiratory infection This note was generated with [employer] dictation software. It may contain incorrect words, spelling, and punctuation that were not noted in review of the chart prior to signing ED Disposition - Plan for ED Patient: Disposition: Home or Assisted Living Chief Complaint: Nausea/Vomiting Diagnosis: Nausea and vomiting, Upper respiratory infection Instructions: ED Nausea Vomiting, ED URI Viral Referrals: Devan Parks MD [Primary Care Provider] - 3-5 Days if not improving
[2018-04-17] MEDS: Metoclopramide 10 MG/2 ML Vial IV (23:19)
[2018-04-17] MEDS: DiphenhydrAMINE 50 MG/ML Syringe 12.5 MG IV (23:19)
[2018-04-17 23:21] VITALS: O2SAT 95
[2018-04-17 23:37] LABS: Absolute Lymphocyte Count 1.84 X10^3/ul (0.83-4.51); Absolute Neutrophil Count 10.2 X10^3/uL (2.0-7.7); Basophil# 0.04 X10^3/uL; Basophil% 0.3 % (0-1); Eosinophil# 0.33 X10^3/uL; Eosinophils% 2.5 % (0-5); Hematocrit 32.9 % (37-47); Hemoglobin 10.2 g/dl (12.0-15.0); Lymphocyte # 1.84 X10^3/ul (4.0); Mean Corpuscular Hgb 23.6 pg (27.0-32.0); Mean Corpuscular Volume 76.2 fL (81-99); Monocyte# 0.76 X10^3/uL; Monocyte% 5.8 % (0-10); Neutrophil # 10.18 X10^3/uL (2.7-7.7); Neutrophil % 77.2 % (47-70); POSITIVE COUNT NO; POSITIVE DIFFERENTIAL NO; POSITIVE MORPHOLOGY NO; Platelet Count 367 K/mm3 (150-450); RBC Distribution Width CV 16.3 % (11.6-14.6); RBC Distribution Width SD 45.1 fl (35.1-43.9); Red Blood Count 4.32 M/mm3 (4.2-5.4); White Blood Count 13.2 K/mm3 (4.4-11.0)
[2018-04-17 23:53] LABS: ALB/GLOB Ratio 0.7 RATIO (0.9-2.4); AST(SGOT) 40 U/L (15-37); Alanine Aminotransfer ALT/SGPT 24 U/L (13-56); Albumin, Serum 3.2 g/dL (3.2-5.0); Alkaline Phosphatase 184 U/L (45-117); Anion Gap 9 (5-15); BUN 9 mg/dL (7-18); BUN/Creat Ratio 8.3 RATIO (10-20); Bilirubin, Direct 0.28 mg/dL (0.00-0.30); Calcium,Total 9.1 mg/dL (8.5-10.1); Chloride 94 mmol/L (98-107); Creatinine, Serum 1.09 mg/dL (0.55-1.02); EST Glomerular Filtration Rate 54 mL/min (>60); Est Glom Filt Rate - Afr Amer 65 mL/min (>60); Estimated Creatinine Clearance 49.45 ml/min; Globulin 4.5 g/dL (2.2-4.2); Glucose 292 mg/dL (74-106); Protein, Total 7.7 g/dL (6.4-8.2); Sodium Level 131 mmol/L (136-145)
[2018-04-18 00:01] VITALS: BP 131/99; PULSE 85; RESP 17; O2SAT 97
[2018-04-18 00:22] LABS: Lipase 89 U/L (73-393)
[2018-04-18] MEDS: proMETHazine 25 MG/ML Syringe IM (03:59)
[2018-04-18 04:37] VITALS: PULSE 88; RESP 18; O2SAT 94
[2018-04-18 04:45] VITALS: PULSE 83; RESP 14
[2018-04-18] MEDS: Albuterol 2.5 MG/3 ML VIAL.NEB. INHALATION (04:45)
[2018-04-18] MEDS: Metoclopramide 10 MG/2 ML Vial IV (08:44)
[2018-04-18 10:18] VITALS: BP 130/89; PULSE 77; RESP 16; O2SAT 95
[2018-04-18 10:19] VITALS: BP 130/89; PULSE 71; RESP 16; O2SAT 95
== END 2018-04-18 10:21 | disposition home or self-care (01) ==
PROVIDERS: Emergency Provider Emergency Medicine; Family Provider Family Medicine; PCP Family Medicine
DX: R11.2 Nausea with vomiting, unspecified (principal); J06.9 Acute upper respiratory infection, unspecified; E11.43 Type 2 diabetes mellitus with diabetic autonomic (poly)neuropathy; K31.84 Gastroparesis; I10 Essential (primary) hypertension; E78.00 Pure hypercholesterolemia, unspecified; K21.9 Gastro-esophageal reflux disease without esophagitis; I48.0 Paroxysmal atrial fibrillation; Z90.49 Acquired absence of other specified parts of digestive tract; Z79.82 Long term (current) use of aspirin; Z79.4 Long term (current) use of insulin; Z79.899 Other long term (current) drug therapy
CPT/HCPCS: 71275; 74022; 80053; 80076; 83690; 85025; 93005; 94640; 96361; 96372; 96374; 96375; 99285; J7030; J7040; Q9967; A4216

== ENCOUNTER → 2018-05-16 10:44 | Outpatient (CLI) | payer MEDICARE, SELFPAY ==
--- NOTE | 2018-05-16 10:47 | RAD_ITS ---
STUDY: X-RAY - PELVIS REASON FOR EXAM: Female, 62 years old. Inflammatory polyarthropathy TECHNIQUE: One view of the pelvis was obtained. COMPARISON: None. FINDINGS: There is a non-specific bowel gas pattern. Normal visualized soft tissue structures. Normal bilateral iliac wings, sacroiliac joints and visualized sacrum. Normal visualized bilateral superior and inferior pubic rami. Normal pubic symphysis. Normal ischial tuberosities. Normal visualized right femoral head. Normal right acetabulum. Normal right hip joint. Normal visualized left femoral head. Normal left acetabulum. Normal left hip joint. RAD/Pelvis 1 or 2 Views IMPRESSION: Normal x-ray examination of the pelvis. Electronically Signed: Clarence Skinner MD at 18:30 EDT , Service support ,
[2018-05-16 12:17] LABS: Absolute Lymphocyte Count 1.81 X10^3/ul (0.83-4.51); Absolute Neutrophil Count 9.7 X10^3/uL (2.0-7.7); Basophil# 0.03 X10^3/uL; Basophil% 0.2 % (0-1); Eosinophil# 0.39 X10^3/uL; Hematocrit 31.9 % (37-47); Hemoglobin 9.7 g/dl (12.0-15.0); Lymphocyte # 1.81 X10^3/ul (4.0); Mean Corp Hgb Conc 30.4 g/gl (32-36); Mean Corpuscular Hgb 23.7 pg (27.0-32.0); Mean Corpuscular Volume 77.8 fL (81-99); Mean Platelet Vol. 9.2 fl (6.2-12.0); Monocyte# 0.98 X10^3/uL; Monocyte% 7.6 % (0-10); Neutrophil # 9.66 X10^3/uL (2.7-7.7); Platelet Count 437 K/mm3 (150-450); RBC Distribution Width CV 17.3 % (11.6-14.6); RBC Distribution Width SD 49.6 fl (35.1-43.9); White Blood Count 12.9 K/mm3 (4.4-11.0)
[2018-05-16 12:23] LABS: POSITIVE COUNT NO; POSITIVE DIFFERENTIAL NO; POSITIVE MORPHOLOGY NO
[2018-05-16 12:24] LABS: Erythrocyte Sedimentation Rate 102 mm/hr (0-30)
[2018-05-16 12:29] LABS: ALB/GLOB Ratio 0.7 RATIO (0.9-2.4); AST(SGOT) 33 U/L (15-37); Alanine Aminotransfer ALT/SGPT 23 U/L (13-56); Alkaline Phosphatase 169 U/L (45-117); Anion Gap 9 (5-15); BUN 17 mg/dL (7-18); BUN/Creat Ratio 12.2 RATIO (10-20); Calcium,Total 8.9 mg/dL (8.5-10.1); Chloride 89 mmol/L (98-107); Creatinine, Serum 1.39 mg/dL (0.55-1.02); EST Glomerular Filtration Rate 41 mL/min (>60); Est Glom Filt Rate - Afr Amer 49 mL/min (>60); Globulin 4.3 g/dL (2.2-4.2); Glucose 134 mg/dL (74-106); Potassium 3.9 mmol/L (3.5-5.1); Protein, Total 7.3 g/dL (6.4-8.2); Rheumatoid Factor < 10.0 IU/mL (<15); Sodium Level 131 mmol/L (136-145)
[2018-05-20 09:30] LABS: ANTINUCLEAR ANTIBODIES DIRECT Negative (Negative)
[2018-05-28 07:31] LABS: CCP IgG Antibodies 6 units (0-19); HEPATITIS B SURFACE AG Negative (Negative); HLA B27 Negative (.); Hep B Surface Antibodies Non Reactive (.); Hep C Antibodies 0.4 s/co ratio (0.0-0.9)
== END ==
PROVIDERS: Family Provider Family Medicine; PCP Family Medicine; Referring Provider Internal Medicine Rheumatology; Visit Provider Internal Medicine Rheumatology
DX: M06.4 Inflammatory polyarthropathy (principal); M21.40 Flat foot [pes planus] (acquired), unspecified foot; M51.37 Other intervertebral disc degeneration, lumbosacral region; M47.897 Other spondylosis, lumbosacral region; M47.892 Other spondylosis, cervical region
CPT/HCPCS: 36415; 72170; 80053; 81374; 85025; 85652; 86038; 86140; 86200; 86431; 86706; 86803; 87340

== ENCOUNTER 2018-05-23 12:37 | Emergency (ER) | payer MEDICARE, SELFPAY ==
[2018-05-23 12:41] VITALS: BP 148/96; PULSE 101; RESP 24; TEMP 37.3; O2SAT 93; BMI 47.0
--- NOTE | 2018-05-23 12:56 | RAD_ITS ---
STUDY: X-RAY - LEFT ELBOW REASON FOR EXAM: Female, 62 years old. FELL LAST NIGHT; POSTERIOR ELBOW PAIN TECHNIQUE: 3 view(s) of the elbow. COMPARISON: None. FINDINGS: Normal visualized humerus, radius and ulna. Normal radiocapitellar and ulnotrochlear articulations. The soft tissue structures are unremarkable. RAD/Elbow min 3 Views IMPRESSION: Normal x-ray examination of the elbow. Electronically Signed: Bita Hunter MD at 13:36 EDT Tel , Service support ,
[2018-05-23] MEDS: HYDROcodone Bitartrate/Apap 5/325 Tablet PO (13:15)
--- NOTE | 2018-05-23 13:58 | RAD_ITS ---
STUDY: X-RAY CHEST REASON FOR EXAM: Female, 62 years old. LEFT SIDED RIB PAIN S/P FALL TECHNIQUE: Frontal and lateral views of the chest. COMPARISON: None. FINDINGS: The lungs are clear and expanded. There is no demonstrated pleural abnormality. Normal size heart. Normal mediastinum and judith. Normal visualized pulmonary arteries. Normal visualized aortic arch and descending thoracic aorta. There are diffuse degenerative changes of the visualized thoracic spine. There is degenerative osteoarthritis of the bilateral shoulders. There is no demonstrated abnormality of the visualized soft tissue structures of the upper abdomen. RAD/Chest PA and Lateral IMPRESSION: Degenerative changes, as described above. No demonstrated acute cardiopulmonary process. Electronically Signed: Bita Hunter MD at 15:43 EDT Tel , Service support ,
--- NOTE | 2018-05-23 14:39 | ED.VISSUMM ---
- ER Visit Summary Date of Service: 05/23/18 Chief Complaint: Fall, elbow pain History of Present Illness: The patient is a 62 F presents to the emergency department after mechanical fall. Patient states last night, she tripped. She landed on her left elbow and struck her left chest. She did not strike her head. She denies loss of consciousness. She denies any other injury. She states that she went to urgent care and they were concerned that she may have a punctured lung. That is why they sent her here. She has no pain in her neck or in her arm. She is not on anticoagulants. Physical Examination: Vital signs reviewed General: Well-nourished, well-developed Head: Normocephalic, atraumatic Eyes: Pupils equal and reactive, extraocular muscles intact Neck, supple, no lymphadenopathy Heart: Regular rate and rhythm Respiratory: No distress, clear bilaterally, mild tenderness in the left lower lateral ribs without step-off or crepitus Abdomen: Soft, nontender, nondistended, no peritoneal signs Back: Nontender Extremities: Ecchymosis over the left olecranon. Extension and flexion are preserved. Pulses are normal, no edema, no cords Skin: Normal color no rash Neuro: Alert and oriented, no focal or lateralizing deficits Test Results: [] Emergency Department Course and Treatment: Plain films were obtained of the chest and elbow. There is no evidence of acute fracture. The patient was given oral analgesics. I do feel that her symptoms are secondary to contusion. Basil wrap was placed on her elbow. She will continue Tylenol. At this time, I do feel that she is safe for up patient therapy. She is comfortable with this plan of care per Treatment Plan: [] Disposition: Discharge Impression: 1. Left rib contusion 2. Left elbow contusion This note was generated with [employer] dictation software. It may contain incorrect words, spelling, and punctuation that were not noted in review of the chart prior to signing ED Disposition - Plan for ED Patient: Chief Complaint: Fall Instructions: ED Mechanical Fall Referrals: Devan Parks MD [Primary Care Provider] -
== END 2018-05-23 14:52 | disposition home or self-care (01) ==
PROVIDERS: Emergency Provider Emergency Medicine; Family Provider Family Medicine; PCP Family Medicine
DX: S20.212A Contusion of left front wall of thorax, initial encounter (principal); S50.02XA Contusion of left elbow, initial encounter; W01.0XXA Fall on same level from slipping, tripping and stumbling without subsequent striking against object, initial encounter; Y93.9 Activity, unspecified; Y92.9 Unspecified place or not applicable; E66.9 Obesity, unspecified; E11.9 Type 2 diabetes mellitus without complications; I10 Essential (primary) hypertension; Z90.49 Acquired absence of other specified parts of digestive tract; Z79.82 Long term (current) use of aspirin; Z79.4 Long term (current) use of insulin; Z79.899 Other long term (current) drug therapy
CPT/HCPCS: 71046; 73080; 99283

== ENCOUNTER → 2018-07-04 13:47 | Outpatient (CLI) | payer MEDICARE, SELFPAY ==
--- NOTE | 2018-07-04 13:51 | ECHOCS_ITS ---
Reason For Study: CHF Procedure This was a 2D Doppler, Color Flow transthoracic echocardiogram. The study was technically difficult. Contrast injection was performed. Exam performed in department. Left Ventricle Normal LV size. Left ventricular systolic function is normal. The estimated ejection fraction is 60 %. Diastolic function is indeterminate. No regional wall motion abnormalities noted. Right Ventricle Normal RV size. Normal systolic function. Atria The left atrium is moderately enlarged. Normal right atrium. No doppler evidence for ASD. Mitral Valve There is no mitral annular calcification. Mild mitral valve prolapse, posterior leaflet. Trivial mitral valve insufficiency. Tricuspid Valve Normal tricuspid valve. Trivial tricuspid valve insufficiency. Unable to estimate RV systolic pressure/pulmonary artery pressure due to technically difficult study. Aortic Valve Trisinus/trileaflet aortic valve. Normal aortic valve. Pulmonic Valve The pulmonic valve is not well visualized. Great Vessels Normal sized aortic root. Pericardium/Pleural No pericardial effusion. Medication 22 gauge I.V. with prn adaptor inserted into right arm. Diluted definity 3ml given slow IV push to enhance endocardial definition. MMode/2D Measurements & Calculations LVIDd: 5.0 cm IVSd: 1.1 cm LVOT diam: 2.2 cm LVIDs: 2.8 cm LVPWd: 1.1 cm RVDd: 3.1 cm FS: 44.3 % LVOT area: 3.8 cm2 Ao root diam: 3.2 cm LAV(MOD-bp): 72.1 ml LA A4 area: 22.7 cm2 LAV(MOD-bp) Indexed: 31.0 ml/m2 LAV(MOD-sp2): 69.7 ml LAV(MOD-sp4): 64.0 ml LA dimension(2D): 4.1 cm RA A4 area: 14.9 cm2 Doppler Measurements & Calculations MV E max juan: 108.0 cm/sec Lat Peak E' Juan: 7.2 cm/sec Med Peak E' Juan: 5.4 cm/sec MV A max juan: 131.1 cm/sec E/E' lat: 14.9 E/E' med: 19.9 MV E/A: 0.82 Ao V2 max: 214.0 cm/sec LV V1 max: 141.2 cm/sec SV(LVOT): 122.5 ml Ao max P.3 mmHg LV V1 max P.0 mmHg Ao V2 mean: 146.4 cm/sec LV V1 mean P.3 mmHg Ao mean P.5 mmHg LV V1 mean: 99.3 cm/sec Ao V2 VTI: 41.2 cm LV V1 VTI: 32.2 cm RANDY(I,D): 3.0 cm2 RANDY(V,D): 2.5 cm2 PA V2 max: 113.5 cm/sec Interpretation Summary The study was technically difficult. Contrast injection was performed. Left ventricular systolic function is normal. The estimated ejection fraction is 60 %. The left atrium is moderately enlarged. Mild mitral valve prolapse, posterior leaflet Trivial mitral valve insufficiency. Trivial tricuspid valve insufficiency. Unable to estimate RV systolic pressure/pulmonary artery pressure due to technically difficult study. Diastolic function is indeterminate. Ordering Physician: Son Ellison Referring Physician: Son Ellison Performed By: Preethi Bell [facility]
--- NOTE | 2018-07-04 14:50 | RAD_ITS ---
HISTORY: CHFCongestive Heart Failure EXAM: XR Chest 2 Views: COMPARISON: 2 view chest 05/23/2018 and CTA chest 04/18/2018 FINDINGS: Normal heart size. No vascular congestion, pleural effusion, or acute pulmonary infiltration. Atherosclerotic thoracic aorta. Mild dorsal kyphosis. RAD/Chest PA and Lateral IMPRESSION: No active cardiopulmonary disease. at 0634 Reported and signed by: Nick Sandoval MD Electronically Signed: Nick Sandoval, at 6:32 EST Tel , Service support ,
[2018-07-04 16:41] LABS: Anion Gap 10 (5-15); BUN 28 mg/dL (7-18); BUN/Creat Ratio 13.1 RATIO (10-20); Calcium,Total 9.2 mg/dL (8.5-10.1); Chloride 91 mmol/L (98-107); Creatinine, Serum 2.14 mg/dL (0.55-1.02); EST Glomerular Filtration Rate 25 mL/min (>60); Est Glom Filt Rate - Afr Amer 30 mL/min (>60); Glucose 147 mg/dL (74-106); Potassium 3.1 mmol/L (3.5-5.1); Sodium Level 133 mmol/L (136-145)
[2018-07-04 16:44] LABS: BNP,B-Type NATRIURETIC PEPTIDE 69.2 pg/mL (0-100)
== END ==
PROVIDERS: Family Provider Family Medicine; PCP Family Medicine; Referring Provider Internal Medicine Cardiovascular Disease; Visit Provider Internal Medicine Cardiovascular Disease
DX: I50.9 Heart failure, unspecified (principal); I25.2 Old myocardial infarction
CPT/HCPCS: 36415; 71046; 80048; 83880; 93306; Q9957; A4216; C8929

== ENCOUNTER 2018-07-19 00:08 | Emergency (ER) | payer MEDICARE, SELFPAY ==
[2018-07-19] VITALS (7 sets, daily range): BP systolic 154–168; BP diastolic 68–91; PULSE 92–101; RESP 18–26; TEMP 36.7; O2SAT 94–98; BMI 44.8
--- NOTE | 2018-07-19 00:45 | EKG12_ITS ---
Test Reason : SOB Blood Pressure : / mmHG Vent. Rate : 088 BPM Atrial Rate : 088 BPM P-R Int : 144 ms QRS Dur : 092 ms QT Int : 394 ms P-R-T Axes : 006 -28 069 degrees QTc Int : 476 ms Normal sinus rhythm Nonspecific T wave abnormality Abnormal ECG Confirmed by ABIMAEL CURRY, CAROLE ([id number]), social media editor MAIKEL MULLEN ([id number]) on 07/22/2018 2:04:21 PM Referred By: CHANDRA Confirmed By:CAROLE VARGHESE MD
[2018-07-19] MEDS: Albuterol 2.5 MG/3 ML VIAL.NEB. INHALATION (00:52)
[2018-07-19] MEDS: Aspirin 81 MG TAB.CHEW 162 MG PO (01:01)
[2018-07-19 01:09] LABS: Absolute Lymphocyte Count 2.93 X10^3/ul (0.83-4.51); Absolute Neutrophil Count 10.7 X10^3/uL (2.0-7.7); Basophil# 0.05 X10^3/uL; Basophil% 0.3 % (0-1); Eosinophil# 0.31 X10^3/uL; Eosinophils% 2.1 % (0-5); Hematocrit 35.4 % (37-47); Hemoglobin 11.3 g/dl (12.0-15.0); Lymphocyte # 2.93 X10^3/ul (4.0); Lymphocyte % 19.4 % (19-41); Mean Corp Hgb Conc 31.9 g/gl (32-36); Mean Corpuscular Hgb 25.4 pg (27.0-32.0); Mean Corpuscular Volume 79.6 fL (81-99); Mean Platelet Vol. 8.9 fl (6.2-12.0); Monocyte# 1.06 X10^3/uL; Neutrophil # 10.71 X10^3/uL (2.7-7.7); Platelet Count 314 K/mm3 (150-450); RBC Distribution Width CV 17.4 % (11.6-14.6); RBC Distribution Width SD 50.7 fl (35.1-43.9); Red Blood Count 4.45 M/mm3 (4.2-5.4); White Blood Count 15.1 K/mm3 (4.4-11.0)
[2018-07-19 01:10] LABS: POSITIVE COUNT NO; POSITIVE DIFFERENTIAL NO; POSITIVE MORPHOLOGY NO
--- NOTE | 2018-07-19 01:14 | ED.VIS.GEN ---
History of Present Illness Chief Complaint: Shortness of Breath Informant: Patient Onset: Hours - 2 Context: Onset with activity - lying down to sleep Timing: Continuous Quality: short of breath Location: chest Current Severity: Moderate Maximum Severity: Moderate Worsened by: lying flat, exertion Relieved by: rest and sitting up Associated Symptoms: mid-sternal lower chest discomfort Narrative: Noticed shortness of breath and nonpleuritic chest discomfort that does not radiate for the last couple hours. She was admitted for 1 night at [facility] last week and diagnosed with congestive heart failure, placed on Lasix, she was having edema and states that since she has been treated with Lasix the edema is better, and not worsening now. She still feels that her feet are both swollen, but her legs are much better. Hx of an [place] several years ago, no stents or CABG in past. States she recently had a plain echocardiogram that was ok. - Past Medical History (1) Congestive heart failure Status: Chronic (2) Old myocardial infarct Status: Chronic (3) Benign essential HTN Status: Chronic (4) Chronic pain syndrome Status: Chronic (5) DM2 (diabetes mellitus, type 2) Status: Chronic (6) Depression Status: Chronic (7) Diabetic gastroparesis Status: Chronic (8) GERD (gastroesophageal reflux disease) Status: Chronic (9) HLD (hyperlipidemia) Status: Chronic (10) Iron deficiency anemia Status: Chronic (11) Paroxysmal atrial fibrillation Status: Chronic Past Medical History - Allergies and Home Meds Allergies/Adverse Reactions: Allergies ciprofloxacin [From Cipro] Allergy (Verified 06/26/18 13:09) Shortness of breath ciprofloxacin HCl [From Cipro] Allergy (Verified 06/26/18 13:09) Shortness of breath cyclobenzaprine [From Flexeril] Allergy (Verified 06/26/18 13:09) Rash cyclobenzaprine HCl [From Flexeril] Allergy (Verified 06/26/18 13:09) Rash ketorolac tromethamine [From Toradol] Allergy (Verified 06/26/18 13:09) Chest tightness sulfamethoxazole [From Bactrim] Allergy (Verified 06/26/18 13:09) Itching trimethoprim [From Bactrim] Allergy (Verified 06/26/18 13:09) Itching metformin Adverse Reaction (Verified 06/26/18 13:09) Other headache valacyclovir HCl [From Valtrex] Adverse Reaction (Verified 06/26/18 13:09) Other Primary Care Physician: Devan Parks MD [Primary Care Provider] - Surgical History: appendectomy, cholecystectomy Smoking Status: Never smoker - Family History Paternal Family History: Family History (Last Reviewed 06/26/18 @ 13:16 by Carley Norwood) Mother Myocardial infarction Father Congestive heart failure Other Diabetes Heart disease Family History: Reports: Heart Disease, - - Bone cancer Maternal Family History: Family History (Last Reviewed 06/26/18 @ 13:16 by Carley Norwood) Mother Myocardial infarction Father Congestive heart failure Other Diabetes Heart disease Family History: Reports: COPD, Diabetes, Heart Disease, - - Smoker Review of Systems General: Reports: Malaise. Denies: Chills, Fever, Sweats Eyes: Denies: Visual changes - bilaterally, Diplopia ENT: Denies: Bilateral ear pain, Rhinorrhea, Sore throat Cardiovascular: Reports: Chest pain. Denies: Palpitations Respiratory: Reports: Dyspnea, Dyspnea on exertion, Orthopnea. Denies: Cough, Sputum Gastrointestinal: Reports: Nausea - chronic, unchanged now. Denies: Abdominal pain, Vomiting, Diarrhea, Melena, Hematochezia Genitourinary: Denies: Dysuria, Hematuria, Frequency Musculoskeletal: Reports: Back pain - chronic, Swelling. Denies: Extremity Pain Skin: Denies: Rash, Wounds Neurological: Reports: Numbness - both feet since they have been swollen. Denies: Headache, Weakness Endocrine: Denies: Polyuria, Polydipsia Physical Exam Vital Signs/Narrative: Vital Signs Temp Pulse Resp BP Pulse Ox 07/19/18 01:01 92 168/91 H 07/19/18 00:54 97 07/19/18 00:09 98.1 F 101 H 26 H 168/91 H 98 Inital Vital Signs reviewed: Yes General: Well nourished, Well developed, Obese Head: Normocephalic, Atraumatic Eyes: Perrl, EOMI ENT: Moist mucous membranes, No rhinorrhea Neck: Supple, Nontender, No lymphadenopathy Cardiovascular: Regular rate, Regular rhythm, No murmurs Respiratory: No distress, CTA bilaterally, Chest nontender, Diminished - at bases, but w/o rales or rhonchi Abdomen: Soft, Nontender, Nondistended, Normal bowel sounds Back: Nontender, Normal Inspection Extremities: Nontender, Edema - 1+ nonpitting ankles Skin: Normal color, No rash Neurological: Alert, Oriented x3, Cranial nerves II-XII grossly intact, Normal Strength, Normal Sensation, Normal Gait Psychological: Normal affect Diagnostic/Tx/Re-eval Impressions Chest X-Ray 07/19/18 01:15 IMPRESSION: Chronic bibasilar interstitial change with no evidence of acute cardiopulmonary disease Electronically Signed: Dipak Coulter MD at 1:50 EST Tel , Service support , 07/19/18 01:15 Chest PA and Lateral [RAD] Stat Laboratory Results 07/19/18 07/19/18 07/19/18 01:05 01:05 01:05 WBC 15.1 H RBC 4.45 Hgb 11.3 L Hct 35.4 L MCV 79.6 L MCH 25.4 L MCHC 31.9 L RDW 17.4 H RDW Differential 50.7 H Plt Count 314 MPV 8.9 Immature Gran % (Auto) 0.200 Neut % (Auto) 71.0 H Lymph % (Auto) 19.4 Roberts % (Auto) 7.0 Eos % (Auto) 2.1 Baso % (Auto) 0.3 Absolute Neuts (auto) 10.7 H Absolute Lymphs (auto) 2.93 Total Counted Not Reportable Sodium 137 Potassium 3.8 Chloride 99 Carbon Dioxide 28.0 Anion Gap 10 BUN 15 Creatinine 1.20 H Estim Creat Clear Calc 44.92 Est GFR (MDRD) Af Amer 58 L Est GFR (MDRD) Non-Af 48 L BUN/Creatinine Ratio 12.5 Glucose 240 H Calcium 9.3 Troponin I < 0.015 B-Natriuretic Peptide 21.9 - Rhythm Strip Rhythm Strip: Sinus Rhythm Rate: 85 Ectopy: None - EKG Initial EKG Interpretation: Sinus Rhythm, No Acute Injury Pattern, Non-Specific ST Changes - mostly in precordial leads, possibly related to significant amount of artifact in baseline Prior: Unchanged - rhythm and gross morphology - Medical Decision Making Labs show nonspecific leukocytosis around 15. Chest x-ray unremarkable, troponin negative, BNP is in the 20s, ruling out acute decompensated congestive heart failure. EKG shows nonspecific T wave abnormalities however there is quite a bit of artifact as well. The morphology and axis are unchanged compared with her prior. Her chest discomfort is gone after nitroglycerin, she was also given an albuterol treatment and on reevaluation all of her symptoms are gone and she states she feels much better. Given her heart history and although her recent plain echo is negative, it was not a stress test, recommend admission to the hospital for further testing and risk stratification. She understands this and understands that if she is having unstable angina, she could go home and have a heart attack, but she wants to go home and refuses to stay. States that she has her son's car and he needs it to go to work in the morning. She will follow-up with cardiology or return if worse, or if she changes her mind she is welcome to return to become admitted. ED Disposition - Plan for ED Patient: Disposition: Against Medical Advice Chief Complaint: Shortness of Breath Diagnosis: Chest pain, unspecified, Dyspnea Instructions: ED Chest Pain Atypical Unkn Cause Referrals: Devan Parks MD [Primary Care Provider] - As soon as possible
--- NOTE | 2018-07-19 01:15 | RAD_ITS ---
STUDY: X-RAY CHEST REASON FOR EXAM: Female, 62 years old. Shortness of breath TECHNIQUE: PA and lateral views of the chest. COMPARISON: 07/04/2018 FINDINGS: There is mild prominence of interstitial lung markings at bilateral lung bases, unchanged. No confluent airspace opacity. No pleural effusion or pneumothorax. Normal size heart. Normal mediastinum and judith. Normal visualized pulmonary arteries. There is atherosclerotic calcification of the aortic arch with tortuosity. There are mild diffuse degenerative changes of the visualized thoracic spine. Normal visualized ribs, clavicles, and shoulders. There is no demonstrated abnormality of the visualized soft tissue structures of the upper abdomen. RAD/Chest PA and Lateral IMPRESSION: Chronic bibasilar interstitial change with no evidence of acute cardiopulmonary disease Electronically Signed: Dipak Coulter MD at 1:50 EST Tel , Service support ,
[2018-07-19 01:26] LABS: Anion Gap 10 (5-15); BUN 15 mg/dL (7-18); BUN/Creat Ratio 12.5 RATIO (10-20); Calcium,Total 9.3 mg/dL (8.5-10.1); Chloride 99 mmol/L (98-107); EST Glomerular Filtration Rate 48 mL/min (>60); Est Glom Filt Rate - Afr Amer 58 mL/min (>60); Estimated Creatinine Clearance 44.92 ml/min; Glucose 240 mg/dL (74-106); Potassium 3.8 mmol/L (3.5-5.1); Sodium Level 137 mmol/L (136-145)
[2018-07-19 01:38] LABS: BNP,B-Type NATRIURETIC PEPTIDE 21.9 pg/mL (0-100)
--- OUTSIDE RECORDS SUMMARY | 2018-09-12 18:07 | XMS RPT_ITS ---
:1955 Author Organization OHIP Support Name Relationship Address Phone D Unavailable Unavailable Unavailable GARDUNO, KERA Unavailable [address] + [place] [address] D Unavailable Unavailable Unavailable GARDUNO, KERA Unavailable [address] + [place] [address] D Unavailable Unavailable Unavailable GARDUNO, EKRA Unavailable [address] + [place] [address] GARDUNO, KERA Unavailable Unavailable + CHEIKH CRAMER Unavailable [address] + [place] [address] D Unavailable Unavailable Unavailable GARDUNO, KEAR Unavailable [address] + [place] [address] D Unavailable Unavailable Unavailable GARDUNO, KERA Unavailable [address] + [place] [address] D Unavailable Unavailable Unavailable GARDUNO, KERA Unavailable [address] + [place] [address] D Unavailable Unavailable Unavailable GARDUNO, KERA Unavailable [address] + [place] [address] LOWELL, KERA Unavailable Unavailable + CHEIKH CRAMER Unavailable [address] + [place] [address] LOWELL, KERA Unavailable Unavailable + CHEIKH CRAMER Unavailable [address] + [place] [address] D Unavailable Unavailable Unavailable GARDUNO, KERA Unavailable [address] + [place] [address] GARDUNO, KERA Unavailable Unavailable + CHEIKH CRAMER Unavailable [address] + [place] [address] D Unavailable Unavailable Unavailable LOWELL, KERA Unavailable Unavailable + GARDUNO, KERA Unavailable Unavailable + BELA, CHEIKH Unavailable [address] + [place] [address] LOWELL, KERA Unavailable Unavailable + BELA, CHEIKH Unavailable [address] + [place] [address] LOWELL, KERA Unavailable Unavailable + BELA, CHEIKH Unavailable [address] + [place] [address] D Unavailable Unavailable Unavailable LOWELL, KERA Unavailable Unavailable + D Unavailable Unavailable Unavailable LOWELL, KERA Unavailable [address] + [place] [address] D Unavailable Unavailable Unavailable LOWELL, KERA Unavailable Unavailable + D Unavailable Unavailable Unavailable LOWELL, KERA Unavailable Unavailable + D Unavailable Unavailable Unavailable LOWELL, KERA Unavailable Unavailable + D Unavailable Unavailable Unavailable LOWELL, KERA Unavailable [address] + [place] [address] D Unavailable Unavailable Unavailable LOWELL, KERA Unavailable Unavailable + D Unavailable Unavailable Unavailable LOWELL, KERA Unavailable Unavailable + D Unavailable Unavailable Unavailable LOWELL, KERA Unavailable [address] + [place] [address] D Unavailable Unavailable Unavailable LOWELL, KERA Unavailable [address] + [place] [address] D Unavailable Unavailable Unavailable LOWELL, KERA Unavailable [address] + [place] [address] D Unavailable Unavailable Unavailable LOWELL, KERA Unavailable Unavailable + D Unavailable Unavailable Unavailable LOWELL, KERA Unavailable Unavailable + D Unavailable Unavailable Unavailable LOWELL, KERA Unavailable Unavailable + D Unavailable Unavailable Unavailable LOWELL, KERA Unavailable Unavailable + D Unavailable Unavailable Unavailable LOWELL, KERA Unavailable Unavailable + D Unavailable Unavailable Unavailable LOWELL, KERA Unavailable Unavailable + D Unavailable Unavailable Unavailable LOWELL, KERA Unavailable Unavailable + D Unavailable Unavailable Unavailable LOWELL, KERA Unavailable Unavailable + D Unavailable Unavailable Unavailable LOWELL, KERA Unavailable Unavailable + D Unavailable Unavailable Unavailable LOWELL, KERA Unavailable Unavailable + D Unavailable Unavailable Unavailable LOWELL, KERA Unavailable Unavailable + D Unavailable Unavailable Unavailable LOWELL, KERA Unavailable Unavailable + D Unavailable Unavailable Unavailable LOWELL, KERA Unavailable Unavailable + BELA, CHEIKH Unavailable [address] + [place] [address] BELA, CHEIKH Unavailable [address] + [place] [address] D Unavailable Unavailable Unavailable LOWELL, KERA Unavailable Unavailable + BELA, CHEIKH Unavailable [address] + [place] [address] BELA, CHEIKH Unavailable [address] + [place] [address] D Unavailable Unavailable Unavailable LOWELL, KERA Unavailable Unavailable + D Unavailable Unavailable Unavailable LOWELL, KERA Unavailable Unavailable + D Unavailable Unavailable Unavailable LOWELL, KERA Unavailable Unavailable + BELA, CHEIKH Unavailable [address] + [place] [address] BLEA, CHEIKH Unavailable [address] + [place] [address] BELA, CHEIKH Unavailable [address] + [place] [address] BELA, CHEIKH Unavailable [address] + [place] [address] BELA, CHEIKH Unavailable [address] + [place] [address] BELA, CHEIKH Unavailable [address] + [place] [address] Care Team Providers Name Role Phone YOU PARKS MD Attending Unavailable YOU PARKS MD. Primary Care Unavailable YOU PARKS MD Attending Unavailable YOU PARKS MD Primary Care Unavailable YOU PARKS MD Attending Unavailable YOU PARKS MD Primary Care Unavailable YOU PARKS MD Attending Unavailable YOU PARKS MD Primary Care Unavailable REFERRING REFERRING, LUÍS STALEY WO ID~[id number] Attending Unavailable YOU PARKS MD Primary Care Unavailable PENNY FLETCHER MD Attending Unavailable YOU PARKS MD Primary Care Unavailable ARGENIS CAR, MS. RENZO Serrato Attending Unavailable YOU PARKS MD Primary Care Unavailable YOU PARKS MD Primary Care Unavailable YOU PARKS MD Consulting Unavailable DIPAK CROW MD Admitting Unavailable DIPAK CROW MD Attending Unavailable CALVIN BARBER, MD. JENNY Recinos Consulting Unavailable [facility], [place]. RENZO Serrato Attending Unavailable YOU PARKS MD Primary Care Unavailable HANDY BAIRES, DR. WERNER العلي Attending Unavailable YOU PARKS MD Primary Care Unavailable Vera Ortiz MD Attending Unavailable YOU PARKS MD Primary Care Unavailable YOU PARKS MD Primary Care Unavailable YOU PARKS MD Consulting Unavailable DIPAK CROW MD Admitting Unavailable DIPAK CROW MD Attending Unavailable DIPAK CROW MD Consulting Unavailable STEVEN, MUKUL Luis Referring Unavailable STEVEN, MUKUL S Attending Unavailable STEVEN, MUKUL S Referring Unavailable STEVEN, MUKUL S Attending Unavailable YOU PARKS Referring Unavailable STEVEN, MUKUL S Referring Unavailable STEVEN, MUKUL S Referring Unavailable STEVEN, MUKUL S Referring Unavailable STEVEN, MUKUL S Referring Unavailable STEVEN, MUKUL S Referring Unavailable AYANA JAMISON (RN) Attending Unavailable Son Ellison Attending Unavailable Son Ellison Referring Unavailable YOU PARKS Primary Care Unavailable Sarah Khan Attending Unavailable DARYL, YOU Primary Care Unavailable Hailey Avelar Attending Unavailable YOU PARKS Primary Care Unavailable Jose Alberto Umana Attending Unavailable DARYL YOU Primary Care Unavailable Mukul Morris Attending Unavailable DARYL, YOU Primary Care Unavailable Carlo Moffett Attending Unavailable DARYL, YOU Primary Care Unavailable Mansoor Haywood Attending Unavailable DARYL, YOU Primary Care Unavailable Bebeto Lugo Attending Unavailable DARYL YOU Primary Care Unavailable Ahmed, Rami Attending Unavailable PARKS, YOU Primary Care Unavailable SHREYAS MARY Attending Unavailable PARKS, YOU Primary Care Unavailable Marcus Loya Attending Unavailable Jose Alberto Umana Attending Unavailable UmanaMarineo Referring Unavailable PARKS, YOU Primary Care Unavailable PARKS, YOU Primary Care Unavailable Carlo Moffett Attending Unavailable PARKS, YOU Primary Care Unavailable Mansoor Haywood Attending Unavailable PARKS, YOU Primary Care Unavailable Robe Root Attending Unavailable PARKS, YOU Primary Care Unavailable Mukul Rico Attending Unavailable PARKS, YOU Primary Care Unavailable Ramon Young Attending Unavailable PARKS, YOU Primary Care Unavailable Son Long Attending Unavailable PARKS, YOU Primary Care Unavailable Ana Rosa, Jose Admitting Unavailable Paint[place], [place] Attending Unavailable Ana Rosa, Jose Admitting Unavailable PARKS, YOU Primary Care Unavailable Ana Rosa, Jose Consulting Unavailable Sandra Burks Attending Unavailable Ana Rosa, Jose Admitting Unavailable Paint[place], [place] Attending Unavailable PARKS, YOU Primary Care Unavailable [place], [place] Consulting Unavailable Chanel Rosario NUCLEAR PLANT CONSTRUCTION WORKER-C Attending Unavailable PARKS, YOU Referring Unavailable Ana Rosa, Jose Admitting Unavailable Paint[place], [place] Attending Unavailable PARKS, YOU Primary Care Unavailable Paint[place], [place] Consulting Unavailable PARKS, YOU Primary Care Unavailable Ashwini Monson Attending Unavailable Dwayne Trivedi Attending Unavailable YOLANDA PARKS Referring Unavailable Dwayne Trivedi Attending Unavailable Farooq, Dwayne Referring Unavailable PARKS, YOU Primary Care Unavailable PARKS, YOU Primary Care Unavailable Mansoor Haywood Attending Unavailable PARKS, YOU Primary Care Unavailable Ray Perez Attending Unavailable PARKS, YOU Primary Care Unavailable Marcus Loya Attending Unavailable Sawyer, Samra Attending Unavailable Sawyer Samra Referring Unavailable PARKS, YOU Primary Care Unavailable PARKS, YOU Primary Care Unavailable Mukul Rico Attending Unavailable Nicolas Norwood Attending Unavailable Son Ellison Attending Unavailable DARYL, YOU Referring Unavailable Son Ellison Attending Unavailable Son Ellison Referring Unavailable PARKS, YOU Primary Care Unavailable PARKS, YOU Primary Care Unavailable SHREYAS MARY Attending Unavailable PARKS, YOU Primary Care Unavailable Ray Perez Attending Unavailable PARKS, YOU Primary Care Unavailable SHREYAS MARY Attending Unavailable PROBLEMS PROBLEMS DATE TYPE CONDITION / CODE ATTENDING STATUS SOURCE 07/04/2018 Unknown I50.9 - Heart Son Ellison Active [facility] failure, unspecified Community / I50.9(ICD-10) Hospital Repository 06/26/2018 Unknown I48.0 - Paroxysmal MoodisSon perry Active [facility] atrial fibrillation Community / I48.0(ICD-10) Hospital Repository 06/26/2018 Unknown I51.81 - Takotsubo Son Ellison Active [place] syndrome / Community I51.81(ICD-10) Hospital Repository 06/26/2018 Unknown 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 / Hospital I25.2(ICD-10) Repository 05/16/2018 Unknown 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 / Community M06.4(ICD-10) Hospital Repository 05/16/2018 Unknown M21.40 - Flat foot Samra Jacques Active [place] [pes planus] Community (acquired), Hospital unspecified foot / Repository M21.40(ICD-10) 05/16/2018 Unknown M51.37 - Other Samra Jacques Active [facility] intervertebral disc Community degeneration, Hospital lumbosacral region / Repository M51.37(ICD-10) 05/16/2018 Unknown M47.897 - Other Samra Jacques Active [place] spondylosis, Community lumbosacral region / Hospital M47.897(ICD-10) Repository 05/16/2018 Unknown M47.892 - Other Samra Jacques Active [facility] spondylosis, Community cervical region / Hospital M47.892(ICD-10) Repository 05/13/2018 Admitting Edema, unspecified / ARGENIS PIPED BUTTONHOLE MACHINE OPERATOR, MS. Active [facility] Diagnosis R60.9(ICD-10) [facility] 03/26/2018 Unknown R06.02 - Shortness Farooq, Dwayne Active [place] of breath / Community R06.02(ICD-10) Hospital Repository 03/26/2018 Unknown A41.9 - Sepsis, Paintsil, [place] Active [place] unspecified organism Community / A41.9(ICD-10) Hospital Repository 03/26/2018 Unknown R11.0 - Nausea / [place], Mansoor Active [place] R11.0(ICD-10) [facility] Repository 03/26/2018 Unknown R10.9 - Unspecified Umana, Jose Alberto Active [facility] abdominal pain / Community R10.9(ICD-10) Hospital Repository 03/26/2018 Unknown R11.10 - Vomiting, Mansoor Haywood Active [place] unspecified / Community R11.10(ICD-10) Hospital Repository 12/31/2017 Active Other disorders of NA Active [place] nervous system / [facility] G98.8(ICD-10) [place] Repository 03/26/2018 Unknown R06.00 - Dyspnea, Jwayyed, Active [facility] unspecified / [place] Community R06.00(ICD-10) Hospital Repository 03/26/2018 Unknown R11.2 - Nausea with Ahmed, Rami Active [facility] vomiting, Community unspecified / Hospital R11.2(ICD-10) Repository 11/21/2017 Admitting Type 2 diabetes DARYL CURRY, Active [facility] Diagnosis mellitus without YOU D. [facility] complications / Repository E11.9(ICD-10) 11/06/2017 Admitting Encounter for issue DARYL CURRY, Active [facility] Diagnosis of repeat YOU D. [facility] prescription / Repository Z76.0(ICD-10) 10/11/2017 Active Gastroparesis / NA Active [place] K31.84(ICD-10) [facility] Repository 08/21/2017 Admitting Hypothyroidism, DARYL CURRY, Active [facility] Diagnosis unspecified / [facility] D. [facility] E03.9(ICD-10) Repository 08/21/2017 Admitting Mixed hyperlipidemia DARYL CURRY, Active [facility] Diagnosis / E78.2(ICD-10) YOU D. [facility] Repository PROCEDURES PROCEDURES No Procedure Records FoundRESULTS RESULTS CNOV Observed: 07/23/2018 Status: COMPLETED Source: [place] 12:45 PM [facility] RE[facility] Office Visit (NEADMN) CRYSTAL CRAMER ([id number]) 1955 F Date Time Provider Department 07/23/18 12:45 PM AYANA JAMISON ([facility]) NEADMN During your visit today, we recorded the following information about you: Pulse Respiration Blood pressure Weight 69/minute 18/minute 104/46 129.3 kg Height 1.676 m Ayana Jamison APRN.JOSEP 07/23/2018 1:20 PM Signed Crystal Cramer is a 62 year old female. Patient presents with: New Patient PMH: DM, Fibromyalgia, HTN, Hyperlipidemia Crystal is here as a new patient. Four years ago (2013) she began to have increased episodes of nausea. States that she went to GI and she tried reglan, phenergan, zofran, and Haldol. She states that since being placed on the Haldol, she does feel relief from the nausea. She did have gastric emptying study performed that showed delayed gastric emptying and she also had a smart pill study that showed some slowed gastric motility. She is positive for voltage gated potassium channel antibodies. Dr. Steven did attempt to have her on IGG as a result of the antibody and her gastroparesis, but the insurance did not approve. She does still experience constipation. She has a bowel movement every 3 days. Denies abdominal discomfort and cramping. If she does not take the Haldol, she will have increased nausea. With the Haldol, it is manageable. She does state that the Haldol causes her to be excessively fatigued. States that she is feeling weaker as a result of increased sleeping while on this medication. The patient has gone to the ER numerous times as a result of her nausea. The patient does not elicit any other symptoms upon this visit and denies any neurological condition that she is aware of. Per the patient's understanding, the purpose of the visit is to evaluate her for the VGKC and determine if there are any neurological manifestations present. REFERRED BY: Dr. Maurizio MENON reviewed data reviewed if done [place] 31 reviewed as 31 point autonomic review of systems questions THIS NOTE IS FOR AT FIRST FOR MY DOCUMENTATION TO PROVIDE CARE, HELP INSURANCE COMPANY AND COLLEAGUES TO HAVE NEUROLOGICAL CONTEXT OF MY , AND FOR MY PERSONAL RECORDING TO FACILITATE FUTURE CARE BY HAVING A WRITTEN DOCUMENT MEMORY OF OUR CONSULT TOGETHER . THANK YOU FOR UNDERSTANDING THIS OFFICE NOTE IS A PHYSICIAN BASED DOCUMENT FOR COMMUNICATION AND CARE. She is brought in today by her alone. Medications Reviewed naloxegol (MOVANTIK) 25 mg tablet Take 25 mg by mouth once daily. haloperidol (HALDOL) 0.5 mg tablet Take 0.5 mg by mouth twice daily. methadone (DOLOPHINE) 5 mg tablet Take 10 mg by mouth once daily. At bedtime ondansetron orally disintegrating (ZOFRAN ODT) 8 mg disintegrating tablet Take 1 tablet by mouth every 8 hours as needed. promethazine (PHENERGAN) 25 mg tablet Take 25 mg by mouth three times daily. promethazine (PHENERGAN) 25 mg tablet Take 1 tablet by mouth every 8 hours as needed (for nausea). morphine IR 15 mg tablet Take 15 mg by mouth every 4 hours as needed. lamoTRIgine (LAMICTAL) 100 mg tablet Take 100 mg by mouth twice daily. Levothyroxine 50 mcg cap Take by mouth once daily. sertraline (ZOLOFT) 100 mg tablet Take 100 mg by mouth once daily. allopurinol (ZYLOPRIM) 100 mg tablet Take 100 mg by mouth once daily. valsartan (DIOVAN) 80 mg tablet Take 80 mg by mouth once daily. aspirin, enteric coated (ASPIRIN, ENTERIC COATED) 81 mg EC tablet Take 81 mg by mouth once daily. INSULIN DEGLUDEC (TRESIBA FLEXTOUCH U-100 SUBCUTANEOUS) Inject 120 mg subcutaneously once daily. montelukast (SINGULAIR) 10 mg tablet Take 10 mg by mouth daily at bedtime. rOPINIRole 1 mg tablet Take 1 mg by mouth once daily. simvastatin 40 mg tablet Take 40 mg by mouth daily at bedtime. pregabalin (LYRICA) 75 mg capsule Take 150 mg by mouth twice daily. Omeprazole 40 mg capsule Take 40 mg by mouth once daily. HYDROCODONE BIT/ACETAMINOPHEN (VICODIN ORAL) Take by mouth. Allergies Reviewed Bactrim [Sulfamethoxazole-trimethoprim] Hives High Allergy 07/31/2017 Past Updates... Ciprofloxacin Rash Medium Allergy 06/10/2013 Past Updates... Flexeril [Cyclobenzaprine] Rash Medium Allergy 06/10/2013 Past Updates... Adverse Reactions/Drug Intolerances Toradol [Ketorolac] Other: See Comments High Side Effect/Intolerance 03/22/2006 Past Updates... Increase BP Metformin Other: See Comments Not Specified Side Effect/Intolerance 06/28/2017 Past Updates... Migraines PAST MEDICAL HISTORY: ACTIVE PROBLEM LIST Tuberculosis of Lung, Nodular, Confirmation Unspecified Diarrhea Nausea AND Vomiting PAST SURGICAL HISTORY Procedure Laterality Date - APPENDECTOMY 1974 - COLONOSCOP W/ OR W/O BRSH SPEC 06/19/2013 Colonoscopy - COLONOSCOPY W/BX 05/27/07 - EGD W/O OR W/BRUSH/WASH 06/19/2013 EGD - EGD W/O OR W/BRUSH/WASH 02/17/15 EGD - REMOVAL GALLBLADDER Cholecystectomy Social History Marital status: Spouse name: Cheikh Years of education: Number of children: 2 Social History Main Topics Smoking status: Never Smoker Smokeless tobacco: Never Used Alcohol use: No Drug use: No family history includes Bone cancer in her father; Crohn's disease in her mother and son; Diabetes in her maternal grandmother and mother. Autonomic check list: YES (Y) or NO (N) Dry mouth N Dry eyes Y Change in sweat N Constipation Y Abdominal Bloating with shortly after eating N Fluctuation of diarrhea and constipation N Urination N Change in taste N Challenge swallowing foods N Skin changes of blue or redness to distal limbs N Fainting /near syncope/syncope N Dizziness N Light headiness N Chest pain N Challenge in breathing N Tachycardia N Temperature Regulation N Bright lights N GENERAL:No weight loss, malaise or fevers., SEE HPI HEENT:Negative for frequent or significant headaches, No changes in hearing or vision, no nose bleeds or other nasal problems NECK:Negative for lumps, goiter, pain and significant neck swelling RESPIRATORY: Negative for cough, wheezing or shortness of breath. CARDIOVASCULAR: Negative for chest pain, leg swelling or palpitations. GASTROINTESTINAL: Constipation GENITOURINARY: No history of dysuria, frequency or incontinence MUSKULOSKELETAL: back pain NEUROLOGIC:Positive for numbness or tingling of the feet: intermittent SKIN:Negative for lesions, rash, and itching. PSYCHIATRIC: Negative for sleep disturbance, mood disorder and recent psychosocial stressors. HEMATOLOGIC/LYMPHATIC/IMMUNOLOGIC:Negative for prolonged bleeding, bruising easily or swollen nodes. ENDOCRINE: Negative for cold or heat intolerance, polyuria, polydipsia and goiter. GLAUCOMA: No 07/23/18 1205 BP: (!) 104/46 Pulse: 69 Resp: 18 Weight: 129.3 kg (285 lb) Height: 167.6 cm (5' 6) General Appearance Patient appears well at the time of this appointment. Cardiovascular Examination: No carotid bruit noted Heart has regular rate and rhythm Pulses equal bilaterally Neurological Examination: Cognition: The patient is alert and oriented times three Lucid and organized in conversation Able to tell detailed medical hx Speech is Normal in fluency volume and clarity Content and Syntax: Normal Comprehension: Normal, able to follow several step commands Repetition: Normal, able to say no ifs ands, or buts Naming: Normal, able to name all objects Reading: Normal Abstract thinking: lie and mistake intact and bird and plane World spells backwards Judgement intact about fire in theater Immediate recall 3 :3 and Short recall 3:3 Able to add quarter, dime, nickel, and marcos Names 10 animals on farm. Clock drawing and writing is normal MMSE is 30/30 No frontal release signs Cranial Nerves: Pupils are equal and reactive to light. Pupils normal in size Normal fundoscopic exam Extraocular movements are grossly intact Good saccades and pursuits No nystagmus Hearing intact Good upgaze Visual davalos are full to confrontation. Facial, motor and sensory exam is symmetric Equal v1,V2, V3 Tongue is in midline. No tongue fasciculation. Palate is upgoing bilaterally SCM and trapezius are full. Shoulder shrug intact ? Motor Exam: ? Upper extremity motor exam is 5/5 in deltoid, 5/5 triceps 5/5biceps, 5/5 wrist extension, and 5/5 hand derrick boat leverman. Finger extensor 5/5. Finger flexor 5/5. Pronation and Supination are full. Full interossei 5/5 ? Lower extremity is 5/5 in IP, 5/5 quadriceps, 5/5 hamstrings, 5/5 EHL, 5/5 TA and 5/5 gastrocnemius. Hip abductors and adductors are 5/5 Toe extensors and flexors are full bilaterally. Foot evertors and inversions are full bilaterally Tone and bulk is normal and preserved bilaterally of arms Tone and bulk is normal and preserved bilaterally of legs Hammer toes present bilaterally ? The patient is without significant pronator drift. ? Sensation: Decreased pinprick sensation bilaterally of legs that improves with proximity to core. Normal toe position. Absent vibratory sensation bilateral feet, present at shins for approximately 10 seconds. Romberg's sign absent ? Reflexes: 2/4triceps, 2/4biceps, 2/4brachioradialis, 2/4knee jerk, 0/4ankle jerk and symmetric, toes are Down going (negative Babinski). No clonus of ankles. ? Coordination: Finger-to- nose-finger and [id number]-jf-[id number] intact bilaterally. No ataxia of arms. No limb dysmetria of arms and legs. or trunk. CHANDNI of pronation and supination, finger and hand tapping intact. Toe tapping intact. There is no asterixis of the hands. No rigidity, cog wheeling, no bradykinesia. No tremors No extrapyramidal findings ? Gait: Normal station and stride, but cautious. Able to tandem. Able to heel and toe walk, but with difficulty. Good arm swing and body turn rises from chair well IMPRESSION/PLAN: Evaluation for Voltage Gated Potassium Channel Antibody: The patient was sent here for evaluation of a positive voltage gated potassium channel antibody that was found in a blood test done by Dr. Steven on 07/31/2017. She has had extensive GI workup that showed some delayed gastric emptying and mildly slowed GI motility via smart pill procedure. The VGKC is mildly elevated and having a neurological exam is a prudent thing to have done. The patient is neurologically intact as evidenced by her exam. The abnormalities present (decreased pinprick sensation, vibratory sensation, and mild difficulty with balance) are all common with a diagnosis of diabetes. In review of her A1C levels, she has been diabetic for some time now and her last A1C was 10.7. The diabetes is the likely cause of her neuropathic symptoms. Excluding these neuropathic symptoms, her neurological exam is stable. She should follow up with Dr. Steven regarding her nausea and GI related symptoms as she is neurologically intact. I did explain this to the patient and she was understanding. This case was discussed in detail with Dr. Amaral. During our face to face clinical encounter we discussed my concerns neurologically in terms of diagnosis, impact on health and activities of living, and addressed questions. I tried to reassure the patient and also address questions. I explained to the patient to call if any questions, to review results, and I want to see them return for neurological follow up as mychart as next steps of communication is agreed upon Patient verbalizes understanding and I have addressed concerns and questions at this visit Patient has my contacts, educational material provided, and my chart sign up. After visit summary discussed. I spent 60 minutes in the visit, with more than 50% of the total [id number]-zk-payi time of the visit in counseling / coordination of care. ACTIVE PROBLEM LIST Tuberculosis of Lung, Nodular, Confirmation Unspecified Diarrhea Nausea AND Vomiting No orders found for this visit on 07/23/18. Ayana Jamison MSN, FUNERAL HOME LOCATION MANAGER, INSTRUMENT AND ELECTRICAL TECHNICIAN-C 1. This office note has been dictated and may contain minor typographic errors that escaped review 2. The nursing staff and medical assistants are a major part of YOUR TREATMENT TEAM and will be handling your phone calls and inquiries, if any. Unless explicitly told otherwise at the time of your office visit, your study results and ensuing treatment plans will be discussed during your follow-up appointment. If you do not have a follow-up appointment and wish to discuss any issues directly with me, please feel free to obtain one. 3. It is my practice to not fill disability or any other insurance-related forms/documention. All of the office notes, study results, and other pertinent documentation generated as part of your evaluation will be available to you and to your Primary Care Physician (PCP). Use of this material to complete such forms will be at the discretion of your PCP/referring physician Referring Provider: SELF [[id number]] Allergies As of Date: 07/23/2018 Noted Allergy Reaction BACTRIM (SULFAMETHOXAZOLE-TRIMETH*07/31/2017 4 - Hives TORADOL (KETOROLAC) 03/22/2006 14 - Other: See Comments Comments: Increase BP CIPROFLOXACIN 06/10/2013 2 - Rash FLEXERIL (CYCLOBENZAPRINE) 06/10/2013 2 - Rash METFORMIN 06/28/2017 14 - Other: See Comments Comments: Migraines Date Reviewed: 07/23/2018 Reviewed by: Ayana Jamison - Fully Assessed Reason for Visit: New Patient [172] Primary Visit Diagnosis:Voltage-gated potassium channel (VGKC) antibody positive [R76.0] Other Visit Diagnosis:Neuropathy (HCC) [G62.9] Prescriptions as of 07/23/2018 Sig: NALOXEGOL 25 MG TABLET Take 25 mg by mouth once alicia* HALOPERIDOL 0.5 MG TABLET Take 0.5 mg by mouth twice da* METHADONE 5 MG TABLET Take 10 mg by mouth once alicia* ONDANSETRON 8 MG DISINTEGRATI* Take 1 tablet by mouth every * PROMETHAZINE 25 MG TAB (PHENE* Take 25 mg by mouth three mikki* PROMETHAZINE 25 MG TABLET Take 1 tablet by mouth every * MORPHINE 15 MG IMMEDIATE RELE* Take 15 mg by mouth every 4 h* LAMOTRIGINE 100 MG TABLET Take 100 mg by mouth twice da* LEVOTHYROXINE 50 MCG CAPSULE Take by mouth once daily. SERTRALINE 100 MG TABLET Take 100 mg by mouth once scotty* ALLOPURINOL 100 MG TABLET Take 100 mg by mouth once scotty* VALSARTAN 80 MG TABLET Take 80 mg by mouth once alicia* ASPIRIN 81 MG TABLET,DELAYED * Take 81 mg by mouth once alicia* TRESIBA FLEXTOUCH U-100 SUBCU* Inject 120 mg subcutaneously * MONTELUKAST 10 MG TABLET Take 10 mg by mouth daily at * ROPINIROLE 1 MG TABLET Take 1 mg by mouth once daily. SIMVASTATIN 40 MG TABLET Take 40 mg by mouth daily at * PREGABALIN 75 MG CAPSULE Take 150 mg by mouth twice da* OMEPRAZOLE 40 MG CAPSULE,HUMBLE* Take 40 mg by mouth once alicia* VICODIN ORAL Take by mouth. Medication notes this encounter MONTELUKAST 10 MG TABLET >> Ayana Jamison APRN.PIPED BUTTONHOLE MACHINE OPERATOR 07/23/2018 12:17 PM >> AYANA JAMISON Wed Jul 23, 2018 12:17 PM Problem List As Of Date 07/23/2018 Noted Resolved TB LUNG NODULAR-UNSPEC [A15.0] INVALID FOR* DIARRHEA NOS [R19.7] INVALID FOR* Nausea AND vomiting [R11.2] INVALID FOR* Medications Discontinued During This Encounter aprepitant (EMEND) 40 mg capsule 30 c* 6 12/12/2017 07/23/2018 Route: ORAL Sig: Take 1 capsule by mouth once daily. Patient not taking: Reported on 12/18/2017 Disc: Discontinued by Patient exenatide microspheres (BYDUREON) 2 * 07/23/2018 Class: Historical Med Route: SUBCUTANEOUS Sig: Inject subcutaneously. Disc: Discontinued by Patient immune globlin, human,, IGG, (GAMMAG* 12 E* 1 08/20/2017 07/23/2018 Class: Print RX Simg/kg IV weekly for 12 weeks, premedicate with 25 mg Benadryl po and Tylenol 500mg po, give 1 liter NS IV prior to each infusion. Patient not taking: Reported on 12/18/2017 Disc: Discontinued by Patient INSULIN ASPART (NOVOLOG FLEXPEN SUBC* 07/23/2018 Class: Historical Med Route: SUBCUTANEOUS Sig: Inject subcutaneously. Sliding scale Disc: Discontinued by Patient INSULIN ASPART (NOVOLOG PENFILL SUBC* 07/23/2018 Class: Historical Med Route: SUBCUTANEOUS Sig: Inject subcutaneously. Disc: Discontinued by Patient INSULIN LISPRO (HUMALOG SUBCUTANEOUS) 07/23/2018 Class: Historical Med Route: SUBCUTANEOUS Sig: Inject subcutaneously as directed. Disc: Discontinued by Patient metoclopramide HCl (REGLAN) 10 mg ta* 90 t* 3 05/31/2017 07/23/2018 Route: ORAL Sig: Take 1 tablet by mouth three times daily. Patient not taking: Reported on 12/18/2017 Disc: Discontinued by Patient metoclopramide HCl (REGLAN) 5 mg tab* 120 * 6 01/15/2018 07/23/2018 Route: ORAL Sig: Take 1 tablet by mouth four times daily. Patient not taking: Reported on 05/23/2018 Disc: Discontinued by Patient mirtazapine (REMERON) 15 mg tablet 30 t* 6 07/31/2017 07/23/2018 Route: ORAL Sig: Take 1 tablet by mouth daily at bedtime. Patient not taking: Reported on 05/23/2018 Disc: Discontinued by Patient olmesartan (BENICAR) 40 mg tablet 07/23/2018 Class: Historical Med Route: ORAL Sig: Take 40 mg by mouth once daily. Disc: Discontinued by Patient ondansetron (ZOFRAN) 4 mg tablet 30 t* 1 08/21/2016 07/23/2018 Route: ORAL Sig: Take 1 tablet by mouth every 8 hours as needed. Patient not taking: Reported on 12/18/2017 Disc: Discontinued by Patient sucralfate (CARAFATE) 1 gram tablet 07/23/2018 Class: Historical Med Route: ORAL Sig: Take 1 g by mouth four times daily. Disc: Discontinued by Patient SUMATRIPTAN SUCCINATE ORAL 07/23/2018 Class: Historical Med Route: ORAL Sig: Take by mouth as needed. Disc: Discontinued by Patient trimethobenzamide (TIGAN) 300 mg cap* 90 c* 6 08/08/2017 07/23/2018 Route: ORAL Sig: Take 1 capsule by mouth three times daily. Patient not taking: Reported on 05/23/2018 Disc: Discontinued by Patient Encounter Status:Closed by AYANA JAMISON on 07/23/18 PROGRESS Observed: 07/23/2018 Status: COMPLETED Source: [place] 12:20 PM [facility] REPOSITORY HNO ID: [id number] Author: Ayana Jamison Service: (none) Author Type: Nurse Practitioner Type: Progress Notes Filed: 07/23/2018 1:20 PM Note Text: Crystal Cramer is a 62 year old female. Patient presents with: New Patient PMH: DM, Fibromyalgia, HTN, Hyperlipidemia Crystal is here as a new patient. Four years ago (2013) she began to have increased episodes of nausea. States that she went to GI and she tried reglan, phenergan, zofran, and Haldol. She states that since being placed on the Haldol, she does feel relief from the nausea. She did have gastric emptying study performed that showed delayed gastric emptying and she also had a smart pill study that showed some slowed gastric motility. She is positive for voltage gated potassium channel antibodies. Dr. Steven did attempt to have her on IGG as a result of the antibody and her gastroparesis, but the insurance did not approve. She does still experience constipation. She has a bowel movement every 3 days. Denies abdominal discomfort and cramping. If she does not take the Haldol, she will have increased nausea. With the Haldol, it is manageable. She does state that the Haldol causes her to be excessively fatigued. States that she is feeling weaker as a result of increased sleeping while on this medication. The patient has gone to the ER numerous times as a result of her nausea. The patient does not elicit any other symptoms upon this visit and denies any neurological condition that she is aware of. Per the patient's understanding, the purpose of the visit is to evaluate her for the VGKC and determine if there are any neurological manifestations present. REFERRED BY: Dr. Steven ALEXANDRA reviewed data reviewed if done COMPASS 31 reviewed as 31 point autonomic review of systems questions THIS NOTE IS FOR AT FIRST FOR MY DOCUMENTATION TO PROVIDE CARE, HELP INSURANCE COMPANY AND COLLEAGUES TO HAVE NEUROLOGICAL CONTEXT OF MY , AND FOR MY PERSONAL RECORDING TO FACILITATE FUTURE CARE BY HAVING A WRITTEN DOCUMENT MEMORY OF OUR CONSULT TOGETHER . THANK YOU FOR UNDERSTANDING THIS OFFICE NOTE IS A PHYSICIAN BASED DOCUMENT FOR COMMUNICATION AND CARE. She is brought in today by her alone. Medications Reviewed naloxegol (MOVANTIK) 25 mg tablet Take 25 mg by mouth once daily. haloperidol (HALDOL) 0.5 mg tablet Take 0.5 mg by mouth twice daily. methadone (DOLOPHINE) 5 mg tablet Take 10 mg by mouth once daily. At bedtime ondansetron orally disintegrating (ZOFRAN ODT) 8 mg disintegrating tablet Take 1 tablet by mouth every 8 hours as needed. promethazine (PHENERGAN) 25 mg tablet Take 25 mg by mouth three times daily. promethazine (PHENERGAN) 25 mg tablet Take 1 tablet by mouth every 8 hours as needed (for nausea). morphine IR 15 mg tablet Take 15 mg by mouth every 4 hours as needed. lamoTRIgine (LAMICTAL) 100 mg tablet Take 100 mg by mouth twice daily. Levothyroxine 50 mcg cap Take by mouth once daily. sertraline (ZOLOFT) 100 mg tablet Take 100 mg by mouth once daily. allopurinol (ZYLOPRIM) 100 mg tablet Take 100 mg by mouth once daily. valsartan (DIOVAN) 80 mg tablet Take 80 mg by mouth once daily. aspirin, enteric coated (ASPIRIN, ENTERIC COATED) 81 mg EC tablet Take 81 mg by mouth once daily. INSULIN DEGLUDEC (TRESIBA FLEXTOUCH U-100 SUBCUTANEOUS) Inject 120 mg subcutaneously once daily. montelukast (SINGULAIR) 10 mg tablet Take 10 mg by mouth daily at bedtime. rOPINIRole 1 mg tablet Take 1 mg by mouth once daily. simvastatin 40 mg tablet Take 40 mg by mouth daily at bedtime. pregabalin (LYRICA) 75 mg capsule Take 150 mg by mouth twice daily. Omeprazole 40 mg capsule Take 40 mg by mouth once daily. HYDROCODONE BIT/ACETAMINOPHEN (VICODIN ORAL) Take by mouth. Allergies Reviewed Bactrim [Sulfamethoxazole-trimethoprim] Hives High Allergy 07/31/2017 Past Updates... Ciprofloxacin Rash Medium Allergy 06/10/2013 Past Updates... Flexeril [Cyclobenzaprine] Rash Medium Allergy 06/10/2013 Past Updates... Adverse Reactions/Drug Intolerances Toradol [Ketorolac] Other: See Comments High Side Effect/Intolerance 03/22/2006 Past Updates... Increase BP Metformin Other: See Comments Not Specified Side Effect/Intolerance 06/28/2017 Past Updates... Migraines PAST MEDICAL HISTORY: ACTIVE PROBLEM LIST Tuberculosis of Lung, Nodular, Confirmation Unspecified Diarrhea Nausea AND Vomiting PAST SURGICAL HISTORY Procedure Laterality Date - APPENDECTOMY 1973 - COLONOSCOP W/ OR W/O BRSH SPEC 06/19/2013 Colonoscopy - COLONOSCOPY W/BX 05/27/07 - EGD W/O OR W/BRUSH/WASH 06/19/2013 EGD - EGD W/O OR W/BRUSH/WASH 02/17/15 EGD - REMOVAL GALLBLADDER Cholecystectomy Social History Marital status: Spouse name: Cheikh Years of education: Number of children: 2 Social History Main Topics Smoking status: Never Smoker Smokeless tobacco: Never Used Alcohol use: No Drug use: No family history includes Bone cancer in her father; Crohn's disease in her mother and son; Diabetes in her maternal grandmother and mother. Autonomic check list: YES (Y) or NO (N) Dry mouth N Dry eyes Y Change in sweat N Constipation Y Abdominal Bloating with shortly after eating N Fluctuation of diarrhea and constipation N Urination N Change in taste N Challenge swallowing foods N Skin changes of blue or redness to distal limbs N Fainting /near syncope/syncope N Dizziness N Light headiness N Chest pain N Challenge in breathing N Tachycardia N Temperature Regulation N Bright lights N GENERAL:No weight loss, malaise or fevers., SEE HPI HEENT:Negative for frequent or significant headaches, No changes in hearing or vision, no nose bleeds or other nasal problems NECK:Negative for lumps, goiter, pain and significant neck swelling RESPIRATORY: Negative for cough, wheezing or shortness of breath. CARDIOVASCULAR: Negative for chest pain, leg swelling or palpitations. GASTROINTESTINAL: Constipation GENITOURINARY: No history of dysuria, frequency or incontinence MUSKULOSKELETAL: back pain NEUROLOGIC:Positive for numbness or tingling of the feet: intermittent SKIN:Negative for lesions, rash, and itching. PSYCHIATRIC: Negative for sleep disturbance, mood disorder and recent psychosocial stressors. HEMATOLOGIC/LYMPHATIC/IMMUNOLOGIC:Negative for prolonged bleeding, bruising easily or swollen nodes. ENDOCRINE: Negative for cold or heat intolerance, polyuria, polydipsia and goiter. GLAUCOMA: No 07/23/18 1205 BP: (!) 104/46 Pulse: 69 Resp: 18 Weight: 129.3 kg (285 lb) Height: 167.6 cm (5' 6) General Appearance Patient appears well at the time of this appointment. Cardiovascular Examination: No carotid bruit noted Heart has regular rate and rhythm Pulses equal bilaterally Neurological Examination: Cognition: The patient is alert and oriented times three Lucid and organized in conversation Able to tell detailed medical hx Speech is Normal in fluency volume and clarity Content and Syntax: Normal Comprehension: Normal, able to follow several step commands Repetition: Normal, able to say no ifs ands, or buts Naming: Normal, able to name all objects Reading: Normal Abstract thinking: lie and mistake intact and bird and plane World spells backwards Judgement intact about fire in theater Immediate recall 3 :3 and Short recall 3:3 Able to add quarter, dime, nickel, and marcos Names 10 animals on farm. Clock drawing and writing is normal MMSE is 30/30 No frontal release signs Cranial Nerves: Pupils are equal and reactive to light. Pupils normal in size Normal fundoscopic exam Extraocular movements are grossly intact Good saccades and pursuits No nystagmus Hearing intact Good upgaze Visual davalos are full to confrontation. Facial, motor and sensory exam is symmetric Equal v1,V2, V3 Tongue is in midline. No tongue fasciculation. Palate is upgoing bilaterally SCM and trapezius are full. Shoulder shrug intact ? Motor Exam: ? Upper extremity motor exam is 5/5 in deltoid, 5/5 triceps 5/5biceps, 5/5 wrist extension, and 5/5 hand derrick boat leverman. Finger extensor 5/5. Finger flexor 5/5. Pronation and Supination are full. Full interossei 5/5 ? Lower extremity is 5/5 in IP, 5/5 quadriceps, 5/5 hamstrings, 5/5 EHL, 5/5 TA and 5/5 gastrocnemius. Hip abductors and adductors are 5/5 Toe extensors and flexors are full bilaterally. Foot evertors and inversions are full bilaterally Tone and bulk is normal and preserved bilaterally of arms Tone and bulk is normal and preserved bilaterally of legs Hammer toes present bilaterally ? The patient is without significant pronator drift. ? Sensation: Decreased pinprick sensation bilaterally of legs that improves with proximity to core. Normal toe position. Absent vibratory sensation bilateral feet, present at shins for approximately 10 seconds. Romberg's sign absent ? Reflexes: 2/4triceps, 2/4biceps, 2/4brachioradialis, 2/4knee jerk, 0/4ankle jerk and symmetric, toes are Down going (negative Babinski). No clonus of ankles. ? Coordination: Finger-to- nose-finger and hjnl-cl-rshr intact bilaterally. No ataxia of arms. No limb dysmetria of arms and legs. or trunk. CHANDNI of pronation and supination, finger and hand tapping intact. Toe tapping intact. There is no asterixis of the hands. No rigidity, cog wheeling, no bradykinesia. No tremors No extrapyramidal findings ? Gait: Normal station and stride, but cautious. Able to tandem. Able to heel and toe walk, but with difficulty. Good arm swing and body turn rises from chair well IMPRESSION/PLAN: Evaluation for Voltage Gated Potassium Channel Antibody: The patient was sent here for evaluation of a positive voltage gated potassium channel antibody that was found in a blood test done by Dr. Steven on 07/31/2017. She has had extensive GI workup that showed some delayed gastric emptying and mildly slowed GI motility via smart pill procedure. The VGKC is mildly elevated and having a neurological exam is a prudent thing to have done. The patient is neurologically intact as evidenced by her exam. The abnormalities present (decreased pinprick sensation, vibratory sensation, and mild difficulty with balance) are all common with a diagnosis of diabetes. In review of her A1C levels, she has been diabetic for some time now and her last A1C was 10.7. The diabetes is the likely cause of her neuropathic symptoms. Excluding these neuropathic symptoms, her neurological exam is stable. She should follow up with Dr. Steven regarding her nausea and GI related symptoms as she is neurologically intact. I did explain this to the patient and she was understanding. This case was discussed in detail with Dr. Amaral. During our face to face clinical encounter we discussed my concerns neurologically in terms of diagnosis, impact on health and activities of living, and addressed questions. I tried to reassure the patient and also address questions. I explained to the patient to call if any questions, to review results, and I want to see them return for neurological follow up as mychart as next steps of communication is agreed upon Patient verbalizes understanding and I have addressed concerns and questions at this visit Patient has my contacts, educational material provided, and my chart sign up. After visit summary discussed. I spent 60 minutes in the visit, with more than 50% of the total ojgt-[id number] time of the visit in counseling / coordination of care. ACTIVE PROBLEM LIST Tuberculosis of Lung, Nodular, Confirmation Unspecified Diarrhea Nausea AND Vomiting No orders found for this visit on 07/23/18. Ayana Jamison MSN, FUNERAL HOME LOCATION MANAGER, INSTRUMENT AND ELECTRICAL TECHNICIAN-C 1. This office note has been dictated and may contain minor typographic errors that escaped review 2. The nursing staff and medical assistants are a major part of YOUR TREATMENT TEAM and will be handling your phone calls and inquiries, if any. Unless explicitly told otherwise at the time of your office visit, your study results and ensuing treatment plans will be discussed during your follow-up appointment. If you do not have a follow-up appointment and wish to discuss any issues directly with me, please feel free to obtain one. 3. It is my practice to not fill disability or any other insurance-related forms/documention. All of the office notes, study results, and other pertinent documentation generated as part of your evaluation will be available to you and to your Primary Care Physician (PCP). Use of this material to complete such forms will be at the discretion of your PCP/referring physician 12 LEAD ELECTROCARDIOGRAM Observed: 07/22/2018 Status: F Source: [place] 2:56 PM REPOSITORY [facility] Cardiovascular Services [address] [place] [id number] 12 Lead EKG 07/20/18 0240 MR#: [id number] Acct: [id number] Name: CRYSTAL CRAMER Rep #: [id number] : 1955 62 From: Son Ellison MD Attending Dr: Status: DEP ER Ordering Dr: Shreyas Mary MD Date: 07/20/18 Location: ED Sex: F C Admitted: Test Reason : CP Blood Pressure : / mmHG Vent. Rate : 083 BPM Atrial Rate : 083 BPM P-R Int : 140 ms QRS Dur : 086 ms QT Int : 422 ms P-R-T Axes : 009 -26 051 degrees QTc Int : 495 ms Normal sinus rhythm Leftward axis Prolonged QT Abnormal ECG Confirmed by JOSE MANUEL CURRY, SON ([id number]), video effects editor MAIKEL MULLEN ([id number]) on 07/22/2018 2:56:36 PM Referred By: BB Confirmed By:SON ELLISON MD 07/22/18 1456 Date Son Ellison MD CC: SHREYAS MARY MD; You Parks MD Signed 12 LEAD ELECTROCARDIOGRAM Observed: 07/22/2018 Status: F Source: [place] 2:26 PM [facility] H[facility]PITAL REPOSITORY [facility] Cardiovascular Services [address] [place] [address] 12 Lead EKG 07/19/18 1633 MR#: [id number] Acct: [id number] Name: CRYSTAL CRAMER Rep #: [id number] : 1955 62 From: Son Ellison MD Attending Dr: Status: DEP ER Ordering Dr: Ray Perez MD Date: 07/19/18 Location: ED Sex: F C Admitted: Test Reason : DYSRHYTHMIA Blood Pressure : / mmHG Vent. Rate : 075 BPM Atrial Rate : 075 BPM P-R Int : 124 ms QRS Dur : 086 ms QT Int : 414 ms P-R-T Axes : 013 -25 023 degrees QTc Int : 462 ms Normal sinus rhythm Leftward axis Poor R wave progression Nonspecific T wave abnormality Abnormal ECG Confirmed by JOSE MANUEL CURRY, SON ([id number]), video effects editor MAIKEL MULLEN ([id number]) on 07/22/2018 2:26:01 PM Referred By: SIMI Confirmed By:SON ELLISON MD 07/22/18 1426 Date Son Ellison MD CC: Ray Perez MD; You Parks MD Signed 12 LEAD ELECTROCARDIOGRAM Observed: 07/22/2018 Status: F Source: [place] 2:04 PM REPOSITORY [facility] Cardiovascular Services [address] [place] [address] 12 Lead EKG 07/19/18 0056 MR#: [id number] Acct: [id number] Name: CRYSTAL CRAMER L Rep #: [id number] : 1955 62 From: Perfecto Haskins MD Attending Dr: Status: DEP ER Ordering Dr: Shreyas Mary MD Date: 07/19/18 Location: ED Sex: F C Admitted: Test Reason : SOB Blood Pressure : / mmHG Vent. Rate : 088 BPM Atrial Rate : 088 BPM P-R Int : 144 ms QRS Dur : 092 ms QT Int : 394 ms P-R-T Axes : 006 -28 069 degrees QTc Int : 476 ms Normal sinus rhythm Nonspecific T wave abnormality Abnormal ECG Confirmed by PERFECTO HASKINS MD ([id number]), video effects editor MAIKEL MULLEN ([id number]) on 07/22/2018 2:04:21 PM Referred By: CAHNDRA Confirmed By:PERFECTO HASKINS MD 07/22/18 1404 Date Perfecto Haskins MD CC: SHREYAS MARY MD; You Parks MD Signed EMERGENCY DEPARTMENT Observed: 07/20/2018 Status: F Source: [place] SUMMARY 7:16 AM REPOSITORY [facility] Medical Records Department [address] [place] [address] Emergency Department Summary 07/20/18 0224 MR#: [id number] Acct: [id number] Name: CRYSTAL CRAMER Rep #: [id number] : 1955 62 From: Shreyas Mary MD PCP: You Parks MD Status: REG ER History of Present Illness Chief Complaint: Shortness of Breath Informant: Patient Onset: Hours - 2 Context: Onset with activity - getting ready for bed, Sudden Onset Timing: Continuous Quality: short of breath Location: chest Current Severity: Moderate Maximum Severity: Moderate Narrative: Patient presents for dyspnea for the third time in the past 24 hours, she was seen here this afternoon for the same symptoms, her workup has been negative twice in a row essentially. She states it is happening again now. She thinks it is worse when she lies down, it is definitely worse when she exerts herself, she was not lying down when this started this morning. She states after the breathing problem started, she started having lower substernal chest discomfort and then subsequently had an episode or 2 of vomiting. It is nonbilious, nonbloody. She denies any diarrhea or abdominal pain. She denies any worsening chronic leg swelling. She has a history of CHF and thinks that this feels similar although she had a BNP of 21, 24 hrs. ago. She denies having any other new symptoms. No history of DVT or PE, she had an overnight hospital stay a week ago at [facility], but no other immobility or recent travel. No recent surgeries. - Past Medical History (1) Benign essential HTN Status: Chronic (2) Chronic pain syndrome Status: Chronic (3) Congestive heart failure Status: Chronic (4) DM2 (diabetes mellitus, type 2) Status: Chronic (5) Depression Status: Chronic (6) Diabetic gastroparesis Status: Chronic (7) Diverticulitis Status: Chronic (8) GERD (gastroesophageal reflux disease) Status: Chronic (9) HLD (hyperlipidemia) Status: Chronic (10) Iron deficiency anemia Status: Chronic (11) Old myocardial infarct Status: Chronic (12) Paroxysmal atrial fibrillation Status: Chronic (13) Seizure disorder Status: Chronic Past Medical History - Allergies and Home Meds Allergies/Adverse Reactions: Allergies ciprofloxacin [From Cipro] Allergy (Verified 07/20/18 01:54) Shortness of breath ciprofloxacin HCl [From Cipro] Allergy (Verified 07/20/18 01:54) Shortness of breath cyclobenzaprine [From Flexeril] Allergy (Verified 07/20/18 01:54) Rash cyclobenzaprine HCl [From Flexeril] Allergy (Verified 07/20/18 01:54) Rash ketorolac tromethamine [From Toradol] Allergy (Verified 07/20/18 01:54) Chest tightness sulfamethoxazole [From Bactrim] Allergy (Verified 07/20/18 01:54) Itching trimethoprim [From Bactrim] Allergy (Verified 07/20/18 01:54) Itching metformin Adverse Reaction (Verified 07/20/18 01:54) Other headache valacyclovir HCl [From Valtrex] Adverse Reaction (Verified 07/20/18 01:54) Other Primary Care Physician: You Parks MD [Primary Care Provider] - Surgical History: appendectomy, cholecystectomy Smoking Status: Never smoker - Family History Paternal Family History: Family History (Last Reviewed 06/26/18 @ 13:16 by Nicolas Norwood) Mother Myocardial infarction Father Congestive heart failure Other Diabetes Heart disease Family History: Reports: Heart Disease, - - Bone cancer Maternal Family History: Family History (Last Reviewed 06/26/18 @ 13:16 by Nicolas Norwood) Mother Myocardial infarction Father Congestive heart failure Other Diabetes Heart disease Family History: Reports: COPD, Diabetes, Heart Disease, - - Smoker Review of Systems General: Reports: Malaise. Denies: Chills, Fever, Sweats Eyes: Denies: Visual changes - bilaterally, Diplopia ENT: Denies: Rhinorrhea, Sore throat Cardiovascular: Denies: Chest pain, Palpitations Respiratory: Reports: Dyspnea, Dyspnea on exertion, Orthopnea - pt thinks. Denies: Cough Gastrointestinal: Reports: Nausea, Vomiting. Denies: Abdominal pain, Diarrhea, Melena, Hematochezia Genitourinary: Denies: Dysuria, Hematuria, Frequency Musculoskeletal: Reports: Swelling - BLE, chronic - better than usual since on diuretic. Denies: Extremity Pain Skin: Denies: Rash, Wounds Neurological: Denies: Headache, Weakness, Parasthesia, Numbness Endocrine: Denies: Heat intolerance, Cold intolerance Allergy: Denies: Swelling of the mouth, Swelling of the tongue Physical Exam Vital Signs/Narrative: Vital Signs 07/20/18 01:55 98.3 F 86 22 H 188/72 H 93 Inital Vital Signs reviewed: Yes General: Well nourished, Well developed, Obese, - - nad Head: Normocephalic, Atraumatic Eyes: Perrl, EOMI. Negative for: Scleral icterus ENT: Moist mucous membranes, No rhinorrhea Neck: Supple, Nontender, No lymphadenopathy, No JVD Cardiovascular: Regular rate, Regular rhythm, No murmurs Respiratory: No distress - but mildly tachypneic, CTA bilaterally, Chest nontender Abdomen: Soft, Nontender, Nondistended, Normal bowel sounds Back: Nontender, Normal Inspection Extremities: Nontender, Edema - 1+ bilat ankles Skin: Normal color, No rash Neurological: Alert, Oriented x3, Cranial nerves II-XII grossly intact, Normal Strength, Normal Sensation Psychological: Normal affect Diagnostic/Tx/Re-eval Impressions Chest CT 07/20/18 03:45 IMPRESSION: 1. Left basilar subsegmental atelectasis. No pneumonia or suspicious lesion. 2. Atherosclerotic calcifications including coronary artery calcifications. 3. Borderline splenomegaly. Individualized dose optimization techniques were used for this CT. at 0455 Reported and signed by: Nick Sandoval MD Electronically Signed: Nick Sandoval, at 4:53 EST Tel , Service support , 07/20/18 03:45 CT Chest [Chest without Contrast] [CT] Stat Laboratory Results - Rhythm Strip Rhythm Strip: Sinus Rhythm Rate: 80 Ectopy: None - EKG Initial EKG Interpretation: Sinus Rhythm, No Acute Injury Pattern, - - mild prolonged QTc Prior: Unchanged - Medical Decision Making Labs show an increasing leukocytosis, her EKG again is unremarkable, and her troponin for the third time in 24 hours is normal. I did a d-dimer and it was normal, ruling out pulmonary embolus in this patient with no history of venous thromboembolism or acute risk factors for 1. She had a BNP of 21 that was performed 24 hours ago, so I do not think that needs to be repeated, nor her chest x-ray which was normal twice in the past 24 hours. Therefore, I sent her for a plain CT chest in order to rule out an occult infiltrate, she had a transient episode of hypoxia in the high 80s percent. The CT was essentially normal. Additionally, 2 weeks she had an echocardiogram that was normal with an EF of 60%, although was technically difficult due to her body habitus and pulmonary artery pressures and diastolic function were unable to be determined. It was otherwise unremarkable. In 2016, this patient had an EF of 35% with angiographically normal coronaries on catheterization, essentially consistent with Takatsubo cardiomyopathy. She was given a nitroglycerin again at this visit, which resolved her symptoms last visit that I saw her. She became a little lightheaded transiently and her blood pressure went down to the 120s from the 180s, but after recovering her blood pressures remained in the 130-140 range and her breathing was improved. She was also given an albuterol treatment. Given all of the studies showing normality, I discussed with Dr. Ellison who was on-call for cardiology and is her radio intelligence operator. We both agree that admitting her to the hospital will probably not be helpful given her relative stability and all of the studies that have been done at this point. We both agree that it would be reasonable to manage her blood pressure better, as she may be having thoracic symptoms as a result of increased blood pressure, and that it would be reasonable to refer her to pulmonary for possible pulmonary function testing to rule out pulmonary etiology of her dyspnea. All this was discussed with her, and in the end we obtained a urinalysis to rule out an additional possible infectious cause of her leukocytosis, it is negative. At this time I feel comfortable discharging her despite her leukocytosis of 17 with instructions to continue her Lasix, double her carvedilol, and double her losartan. All of this was explained to her and she is comfortable with the overall plan. ED Disposition - Plan for ED Patient: Disposition: Home or Assisted Living Chief Complaint: Shortness of Breath Diagnosis: SOB (shortness of breath), Accelerated hypertension Instructions: ED Dyspnea Shortness of Breath Referrals: Son Ellison MD [STAFF PHYSICIAN] - As soon as possible Austin Hawley DO [STAFF PHYSICIAN] - As soon as possible Additional Instructions: Double both your carvedilol and your losartan. Carvedilol should be 6.25 mg twice daily, losartan should be 160 mg once daily. Continue taking your Lasix 40 mg once daily, and her other medications should be unchanged. What to do if you have Problems For any increased pain, shortness of breath, bleeding, nausea or vomiting, chest pain, or any unexpected problems, contact your Primary Care Provider. Call [facility] ([phone]) or report to the closest Emergency Room. Call 911 if necessary. 07/20/18 0716 <Electronically signed by Shreyas Mary MD> Date Shreyas Mary MD Cosigner Signature (If Indicated): Date CC: You Parks MD URINALYSIS, COMPLETE Collected: 07/20/2018 Status: F Source: MARCUS 6:15 AM REPOSITORY Order Comment: Order Date: 07/20/18 NOTE - MICROSCOPIC EXAM DONE ON UNSPUN URINE. ONLY 1 ML SAMPLE SUBMITTED How was Urine Obtained? SLAB LIFTING SUPERVISOR TO SPECIFY TYPE CODE TESTS RESULT OUT OF RANGE REFERENCE UNITS LAB L400.3000 Yellow COLOR Normal Yellow LAB L400.3050 Clear Normal CLARITY Sl. Cloudy LAB L400.3200 Normal mg/dl Normal GLUCOSE, UR Normal LAB L400.3300 Negative mg/dL Normal BILIRUBIN URINE Negative LAB L400.3400 Negative mg/dl Normal KETONE UR Negative LAB L400.3465 1.002-1.030 Normal SP.GR. DIPSTX 1.020 LAB L400.3550 5.0 - 8.0 pH UR Normal 6.0 LAB L400.3600 Negative mg/dl High PROT 30 DIPSTX LAB L400.3700 Normal mg/dl High 1 UROBILI LAB L400.3750 Negative Normal NITRITE UR Negative LAB L400.3780 Negative /ul Normal OCCULT BLOOD-UR Negative LAB L400.3800 Negative /ul High LEUK 25 ESTERASE LAB L400.4050 0-5 /hpf WBC Normal 0-5 SEEN LAB L400.4100 0-5 /hpf 0 Normal RBC-UA SEEN LAB L400.4150 5-10 /hpf SQUAM Normal EPI 0-5 SEEN LAB L400.4300 None Seen /hpf Normal BACTERIA RARE Performed By: #### L400.0001 #### [facility] [address] [place], [address] CHEST WITHOUT Observed: 07/20/2018 Status: F Source: M[facility]US CONTRAST 3:46 AM REPOSITORY [facility] Imaging Services [address] [place] [address] Chest without Contrast MR#: [id number] Acct: [id number] Name: CRYSTAL CRAMER Rep #: [id number] : 1955 F 62 From: Nick Sandoval MD PCP: You Parks MD Status: REG ER Study: Chest without Contrast Date of Exam: 07/20/18 Exam# [id number] Ordering Dr: Shreyas Mary MD HISTORY: SOB,NAUSEA AND VOMITING,ELEVATED BP AND WBCHX:A-FIB,CHF,DIABETES,HLD,HTN,PE TECHNIQUE: Helically acquired images were obtained of the chest. A radiation dose optimization technique was used for this scan. IV Contrast dosage and agent: None COMPARISON: CTA chest 04/18/2018 and chest x-ray 07/19/2018 FINDINGS: Left lower lobe mild subsegmental atelectasis, new compared to previous. No central obstructing lesion and no pulmonary consolidation. Right lung appears clear. No bronchiectasis or pleural effusion. Anterior segment right lower lobe (image [id number]) 5 mm perifissural nodule, posterior to the right major fissure. These type nodules are typically benign Atherosclerotic thoracic aorta which is normal in caliber. Coronary artery calcifications, as well. No pericardial effusion. No hilar, mediastinal, or axillary lymph node enlargement on this non-infusion exam. Borderline splenomegaly. Adrenal glands are not enlarged. CT/Chest without Contrast IMPRESSION: 1. Left basilar subsegmental atelectasis. No pneumonia or suspicious lesion. 2. Atherosclerotic calcifications including coronary artery calcifications. 3. Borderline splenomegaly. Individualized dose optimization techniques were used for this CT. at 0455 Reported and signed by: Nick Sandoval MD Electronically Signed: Nick Sandoval, at 4:53 EST Tel , Service support , CC: SHREYAS MARY MD; You Parks MD Commercial Glazier: Signed BASIC METABOLIC Collected: 07/20/2018 Status: F Source: [place] PROFILE (BMP) 3:00 AM REPOSITORY TYPE CODE TESTS RESULT OUT OF RANGE REFERENCE UNITS LAB L501.0100 74-106 mg/dL Low GLU 66 Result Comment: Please note revised GLUCOSE reference range effective 2017. LAB L501.1000 7-18 mg/dL Normal BUN 17 LAB L501.1100 0.55-1.02 mg/dL High CREAT,SERUM 1.27 Result Comment: The validity of the calculated GFR AND GFRAA in patients over 70 years has not been determined. Clinical correlation is essential. LAB L501.1110 >60 mL/min Low EST GFR 45 Result Comment: Non- GFR Calc LAB L501.1115 >60 mL/min Low EST GFR - AA 55 Result Comment: GFR Calc LAB L501.1255 ml/min Normal Estimated CRCL 42.45 LAB L501.1300 10-20 RATIO Normal BUN/CRE 13.4 LAB L501.2200 8.5-10 mg/dL Normal .1 CA 9.8 LAB L501.5300 136-14 mmol/L Normal 5 NA 143 LAB L501.5600 3.5-5. mmol/L Normal 1 K 3.6 LAB L501.5900 98-107 mmol/L Normal CL 102 LAB L501.6100 21.0-3 mmol/L Normal 2.0 CO2 30.0 LAB L501.6200 5-15 Normal GAP 11 Performed By: #### L500.2500, L501.4010 #### [facility] [address] [place], [place], [id number] TROPONIN-I Collected: 07/20/2018 Status: F Source: [place] 3:00 AM REPOSITORY TYPE CODE TESTS RESULT OUT OF RANGE REFERENCE UNITS LAB L501.4010 <0.045 ng/mL Normal < 0.015 TROPONIN-I Result Comment: TROPONIN-I EXPECTED VALUES <0.045 Negative 0.045 - 0.590 Consistent with Cardiac Damage > OR = 0.600 Critical Value Not every elevated troponin is indicative of VT. These values should be used with clinical judgement in examining the patient's clinical picture for diagnosis. To establish a diagnosis of VT versus myocardial injury, there must be a demonstrated rise and/or fall in the troponin values, in addition to ischemic symptoms, EKG changes, new regional wall motion abnormality, and/or angiographical evidence. PLEASE NOTE: REFERENCE RANGES EDITED 17 Performed By: #### L500.2500, L501.4010 #### [facility] [address] [place], [place], [id number] CBC W/DIFF, AUTOMATED Collected: 07/20/2018 Status: F Source: [place] 3:00 AM REPOSITORY TYPE CODE TESTS RESULT OUT OF RANGE REFERENCE UNITS LAB L100.1000 4.4-11.0 K/mm3 High WBC 17.6 LAB L100.1200 4.2-5.4 M/mm3 Normal RBC 4.79 LAB L100.1300 12.0-15.0 g/dl Normal HGB 12.2 LAB L100.1400 37-47 % Normal HCT 38.2 LAB L100.1500 81-99 fL Low MCV 79.7 LAB L100.1600 27.0-32.0 pg Low MCH 25.5 LAB L100.1700 32-36 g/gl Low MCHC 31.9 LAB L100.1810 11.6-14.6 % High RDW CV 17.4 LAB L100.1820 35.1-43.9 fl High RDW SD 50.7 LAB L100.1900 150-450 K/mm3 Normal PLT 366 LAB L100.2000 6.2-12.0 fl Normal MPV 9.2 LAB L100.2100 47-70 % High NEUT% 75.0 LAB L100.2200 19-41 % Low LY% 14.7 LAB L100.2300 0-10 % Normal MONO% 7.4 LAB L100.2400 0-5 % Normal EO% 2.4 LAB L100.2500 0-1 % Normal BASO% 0.3 LAB L100.2550 0.0-0.9 % Normal IM GRAN % 0.200 Result Comment: IG% - Immature Granulocytes (promyelocytes, myelocytes and metamyelocytes) > 1% indicates that a LEFT SHIFT is Present. LAB L100.2620 2.0-7.7 X10 3/uL High Absolute Neut 13.2 LAB L100.2720 0.83-4.51 X10 3/ul Normal Absolute Lymph 2.59 Performed By: #### L100.0100 #### [facility] [address] [place], [place], [address] D-DIMER QUANTITATIVE Collected: 07/20/2018 Status: F Source: [place] (DVT/PE) 3:00 AM REPOSITORY TYPE CODE TESTS RESULT OUT OF RANGE REFERENCE UNITS LAB L300.8000 0.27-0.49 FEU/ug/m Normal D-DIMER 0.46 QUANT Result Comment: NORMAL D-Dimer level (<0.50) indicates no DVT or PE. Performed By: #### L300.8000 #### [facility] [address] [place], [address] EMERGENCY DEPARTMENT Observed: 07/19/2018 Status: F Source: [place] SUMMARY 9:51 PM REPOSITORY [facility] Medical Records Department [address] [place] [address] Emergency Department Summary 07/19/18 1556 MR#: [id number] Acct: [id number] Name: CRYSTAL CRAMER Rep #: [id number] : 1955 62 From: Ray Perez MD PCP: You Parks MD Status: DEP ER - ER Visit Summary Date of Service: 07/19/18 Chief Complaint: Shortness of breath History of Present Illness: The patient is a 62 F history of insulin-dependent diabetes, hypertension, CAD, VT, CHF. Patient presented the emergency department around midnight 1 AM this morning. Had shortness of breath. And was offered admission but deferred. She states that. She still feels short of breath. Has nausea and vomiting x2 today. No fever or chills. Mild nonproductive cough. No chest pain. Her workup last night was relatively unremarkable. She denies any leg pain or swelling. She was admitted to [facility] for congestive heart failure. She denies any recent water retention or weight gain. Physical Examination: Older female no acute distress. Vital signs are stable afebrile. Her pulse ox is 95% on room air no hypoxia. She is sitting in bed resting comfortably. She does not have oxygen on. H EENT exam unremarkable. Neck nontender. Lungs clear to auscultation bilaterally. Heart regular rate and rhythm no murmur. Abdomen is soft and nontender. Normal bowel sounds no peritoneal signs. She is moving all 4 extremities. She is equal symmetrical derrick boat leverman strength. Dorsi plantar flexion intact. Calves are nontender without edema or cords. Neurologically she is awake alert with no focal motor deficits. Back exam is nontender. Test Results: Chest x-ray two-view shows no acute abnormality. No pneumonia. No failure. No effusion. Chronic changes. Read by myself. White count is 13 it was 15 last night. Hemoglobin 11.7 that is her baseline chronic anemia. Electrolytes unremarkable gap of 10. Creatinine 1.1 which is also her baseline. Troponin normal. EKG sinus rhythm rate of 75 with no acute abnormality. Emergency Department Course and Treatment: I reviewed the patient's workup from last night which did not have any significant abnormalities. We will repeat a similar workup today. On her exam she does not look sick. Her lungs are clear. Her exam otherwise is unremarkable. If her lab values are consistent with her exam more than likely she will be able to be discharged home. Treatment Plan: On repeat exam at 1655 patient is doing well. Exam is unchanged and basically normal. I went over all tests with her and a friend in the room. She meets no criteria for admission clinically she does not need to be admitted will be discharged Disposition: Discharge Impression: Subjective dyspnea of uncertain etiology History of CHF, CAD, VT, insulin-dependent diabetes This note was generated with Connectipityation software. It may contain incorrect words, spelling, and punctuation that were not noted in review of the chart prior to signing ED Disposition - Plan for ED Patient: Chief Complaint: General Illness Referrals: You Parks MD [Primary Care Provider] - What to do if you have Problems For any increased pain, shortness of breath, bleeding, nausea or vomiting, chest pain, or any unexpected problems, contact your Primary Care Provider. Call [facility] ([phone]) or report to the closest Emergency Room. Call 911 if necessary. 07/19/18 2151 <Electronically signed by Ray Perez MD> Date Ray Perez MD Cosigner Signature (If Indicated): Date CC: You Parks MD DISCHARGE INSTRUCTION Observed: 07/19/2018 Status: F Source: [facility] 9:51 PM REPOSITORY [facility] Medical Records Department [address] [place] [address] Discharge Instruction 07/19/18 1700 MR#: [id number] Acct: [id number] Name: CRYSTAL CRAMER Rep #: [id number] : 1955 62 From: Ray Perez MD PCP: You Parks MD Status: DEP ER ED Disposition - Plan for ED Patient: Disposition: Home or Assisted Living Chief Complaint: General Illness Instructions: ED Dyspnea Shortness of Breath Referrals: You Parks MD [Primary Care Provider] - 3-5 Days if not improving What to do if you have Problems For any increased pain, shortness of breath, bleeding, nausea or vomiting, chest pain, or any unexpected problems, contact your Primary Care Provider. Call [facility] ([phone]) or report to the closest Emergency Room. Call 911 if necessary. 07/19/182150 <Electronically signed by Ray Perez MD> Date Ray Perez MD Cosigner Signature (If Indicated): Date CC: You Parks MD CBC W/DIFF, AUTOMATED Collected: 07/19/2018 Status: F Source: [facility] 4:10 PM REPOSITORY TYPE CODE TESTS RESULT OUT OF RANGE REFERENCE UNITS LAB L100.1000 4.4-11.0 K/mm3 High WBC 13.7 LAB L100.1200 4.2-5.4 M/mm3 Normal RBC 4.60 LAB L100.1300 12.0-15.0 g/dl Low HGB 11.7 LAB L100.1400 37-47 % Low HCT 36.7 LAB L100.1500 81-99 fL Low MCV 79.8 LAB L100.1600 27.0-32.0 pg Low MCH 25.4 LAB L100.1700 32-36 g/gl Low MCHC 31.9 LAB L100.1810 11.6-14.6 % High RDW CV 17.4 LAB L100.1820 35.1-43.9 fl High RDW SD 50.4 LAB L100.1900 150-450 K/mm3 Normal PLT 328 LAB L100.2000 6.2-12.0 fl Normal MPV 8.8 LAB L100.2100 47-70 % High NEUT% 73.5 LAB L100.2200 19-41 % Low LY% 14.9 LAB L100.2300 0-10 % Normal MONO% 8.0 LAB L100.2400 0-5 % Normal EO% 2.9 LAB L100.2500 0-1 % Normal BASO% 0.5 LAB L100.2550 0.0-0.9 % Normal IM GRAN % 0.200 Result Comment: IG% - Immature Granulocytes (promyelocytes, myelocytes and metamyelocytes) > 1% indicates that a LEFT SHIFT is Present. LAB L100.2620 2.0-7.7 X10 3/uL High Absolute Neut 10.1 LAB L100.2720 0.83-4.51 X10 3/ul Normal Absolute Lymph 2.04 Performed By: #### L100.0100 #### [facility] [address] [place], [address] BASIC METABOLIC Collected: 07/19/2018 Status: F Source: [place] PROFILE (BMP) 4:10 PM REPOSITORY TYPE CODE TESTS RESULT OUT OF RANGE REFERENCE UNITS LAB L501.0100 74-106 mg/dL High GLU 132 Result Comment: Fasting Glucose result greater than or equal to 126 mg/dL suggests DIABETES MELLITUS per A.D.A. criteria. Please note revised GLUCOSE reference range effective 2017. LAB L501.1000 7-18 mg/dL Normal BUN 16 LAB L501.1100 0.55-1.02 mg/dL High CREAT,SERUM 1.19 Result Comment: The validity of the calculated GFR AND GFRAA in patients over 70 years has not been determined. Clinical correlation is essential. LAB L501.1110 >60 mL/min Low EST GFR 49 Result Comment: Non- GFR Calc LAB L501.1115 >60 mL/min Low EST GFR - AA 59 Result Comment: GFR Calc LAB L501.1255 ml/min Normal Estimated CRCL 45.30 LAB L501.1300 10-20 RATIO Normal BUN/CRE 13.4 LAB L501.2200 8.5-10 mg/dL Normal .1 CA 9.9 LAB L501.5300 136-14 mmol/L Normal 5 NA 140 LAB L501.5600 3.5-5. mmol/L Normal 1 K 3.8 LAB L501.5900 98-107 mmol/L Normal CL 102 LAB L501.6100 21.0-3 mmol/L Normal 2.0 CO2 28.0 LAB L501.6200 5-15 Normal GAP 10 Performed By: #### L500.2500, L501.4010 #### [facility] [address] [place], [address] TROPONIN-I Collected: 07/19/2018 Status: F Source: [place] 4:10 PM REPOSITORY TYPE CODE TESTS RESULT OUT OF RANGE REFERENCE UNITS LAB L501.4010 <0.045 ng/mL Normal < 0.015 TROPONIN-I Result Comment: TROPONIN-I EXPECTED VALUES <0.045 Negative 0.045 - 0.590 Consistent with Cardiac Damage > OR = 0.600 Critical Value Not every elevated troponin is indicative of VT. These values should be used with clinical judgement in examining the patient's clinical picture for diagnosis. To establish a diagnosis of VT versus myocardial injury, there must be a demonstrated rise and/or fall in the troponin values, in addition to ischemic symptoms, EKG changes, new regional wall motion abnormality, and/or angiographical evidence. PLEASE NOTE: REFERENCE RANGES EDITED 17 Performed By: #### L500.2500, L501.4010 #### [facility] [address] [place], [address] CHEST PA AND LATERAL Observed: 07/19/2018 Status: F Source: [place] 3:54 PM REPOSITORY [facility] Imaging Services [address] [place] [address] Chest PA and Lateral MR#: [id number] Acct: [id number] Name: CRYSTAL CRAMER Rep #: [id number] : 1955 F 62 From: Sterling Fields MD PCP: You Parks MD Status: DEP ER Study: Chest PA and Lateral Date of Exam: 07/19/18 Exam# [id number] Ordering Dr: Ray Perez MD STUDY: X-RAY CHEST REASON FOR EXAM: Female, 62 years old. Chest pain. TECHNIQUE: Frontal and lateral views of the chest. COMPARISON: July 19, 2018 FINDINGS: The lungs are clear and expanded. There is no demonstrated pleural abnormality. There is borderline cardiomegaly. Normal mediastinum and judith. Normal visualized pulmonary arteries. Normal visualized aortic arch and descending thoracic aorta. Normal visualized thoracic spine. Normal visualized ribs, clavicles, and shoulders. There is no demonstrated abnormality of the visualized soft tissue structures of the upper abdomen. RAD/Chest PA and Lateral IMPRESSION: No acute abnormality. Electronically Signed: Sterling Fields MD at 17:29 EST , Service support , CC: Ray Perez MD; You Parks MD [employer] Glazier: Signed EMERGENCY DEPARTMENT Observed: 07/19/2018 Status: F Source: [place] SUMMARY 3:12 AM REPOSITORY [facility] Medical Records Department [address] [place] [address] Emergency Department Summary 07/19/18 0114 MR#: [id number] Acct: [id number] Name: CRYSTAL CRAMER Rep #: [id number] : 1955 62 From: Shreyas Mary MD PCP: You Parks MD Status: REG ER History of Present Illness Chief Complaint: Shortness of Breath Informant: Patient Onset: Hours - 2 Context: Onset with activity - lying down to sleep Timing: Continuous Quality: short of breath Location: chest Current Severity: Moderate Maximum Severity: Moderate Worsened by: lying flat, exertion Relieved by: rest and sitting up Associated Symptoms: mid-sternal lower chest discomfort Narrative: Noticed shortness of breath and nonpleuritic chest discomfort that does not radiate for the last couple hours. She was admitted for 1 night at [facility] last week and diagnosed with congestive heart failure, placed on Lasix, she was having edema and states that since she has been treated with Lasix the edema is better, and not worsening now. She still feels that her feet are both swollen, but her legs are much better. Hx of an VT several years ago, no stents or CABG in past. States she recently had a plain echocardiogram that was ok. - Past Medical History (1) Congestive heart failure Status: Chronic (2) Old myocardial infarct Status: Chronic (3) Benign essential HTN Status: Chronic (4) Chronic pain syndrome Status: Chronic (5) DM2 (diabetes mellitus, type 2) Status: Chronic (6) Depression Status: Chronic (7) Diabetic gastroparesis Status: Chronic (8) GERD (gastroesophageal reflux disease) Status: Chronic (9) HLD (hyperlipidemia) Status: Chronic (10) Iron deficiency anemia Status: Chronic (11) Paroxysmal atrial fibrillation Status: Chronic Past Medical History - Allergies and Home Meds Allergies/Adverse Reactions: Allergies ciprofloxacin [From Cipro] Allergy (Verified 06/26/18 13:09) Shortness of breath ciprofloxacin HCl [From Cipro] Allergy (Verified 06/26/18 13:09) Shortness of breath cyclobenzaprine [From Flexeril] Allergy (Verified 06/26/18 13:09) Rash cyclobenzaprine HCl [From Flexeril] Allergy (Verified 06/26/18 13:09) Rash ketorolac tromethamine [From Toradol] Allergy (Verified 06/26/18 13:09) Chest tightness sulfamethoxazole [From Bactrim] Allergy (Verified 06/26/18 13:09) Itching trimethoprim [From Bactrim] Allergy (Verified 06/26/18 13:09) Itching metformin Adverse Reaction (Verified 06/26/18 13:09) Other headache valacyclovir HCl [From Valtrex] Adverse Reaction (Verified 06/26/18 13:09) Other Primary Care Physician: You Parks MD [Primary Care Provider] - Surgical History: appendectomy, cholecystectomy Smoking Status: Never smoker - Family History Paternal Family History: Family History (Last Reviewed 06/26/18 @ 13:16 by Nicolas Norwood) Mother Myocardial infarction Father Congestive heart failure Other Diabetes Heart disease Family History: Reports: Heart Disease, - - Bone cancer Maternal Family History: Family History (Last Reviewed 06/26/18 @ 13:16 by Nicolas Norwood) Mother Myocardial infarction Father Congestive heart failure Other Diabetes Heart disease Family History: Reports: COPD, Diabetes, Heart Disease, - - Smoker Review of Systems General: Reports: Malaise. Denies: Chills, Fever, Sweats Eyes: Denies: Visual changes - bilaterally, Diplopia ENT: Denies: Bilateral ear pain, Rhinorrhea, Sore throat Cardiovascular: Reports: Chest pain. Denies: Palpitations Respiratory: Reports: Dyspnea, Dyspnea on exertion, Orthopnea. Denies: Cough, Sputum Gastrointestinal: Reports: Nausea - chronic, unchanged now. Denies: Abdominal pain, Vomiting, Diarrhea, Melena, Hematochezia Genitourinary: Denies: Dysuria, Hematuria, Frequency Musculoskeletal: Reports: Back pain - chronic, Swelling. Denies: Extremity Pain Skin: Denies: Rash, Wounds Neurological: Reports: Numbness - both feet since they have been swollen. Denies: Headache, Weakness Endocrine: Denies: Polyuria, Polydipsia Physical Exam Vital Signs/Narrative: Vital Signs 07/19/18 01:01 92 168/91 H 07/19/18 00:54 97 07/19/18 00:09 98.1 F 101 H 26 H 168/91 H 98 Inital Vital Signs reviewed: Yes General: Well nourished, Well developed, Obese Head: Normocephalic, Atraumatic Eyes: Perrl, EOMI ENT: Moist mucous membranes, No rhinorrhea Neck: Supple, Nontender, No lymphadenopathy Cardiovascular: Regular rate, Regular rhythm, No murmurs Respiratory: No distress, CTA bilaterally, Chest nontender, Diminished - at bases, but w/o rales or rhonchi Abdomen: Soft, Nontender, Nondistended, Normal bowel sounds Back: Nontender, Normal Inspection Extremities: Nontender, Edema - 1+ nonpitting ankles Skin: Normal color, No rash Neurological: Alert, Oriented x3, Cranial nerves II-XII grossly intact, Normal Strength, Normal Sensation, Normal Gait Psychological: Normal affect Diagnostic/Tx/Re-eval Impressions Chest X-Ray 07/19/18 01:15 IMPRESSION: Chronic bibasilar interstitial change with no evidence of acute cardiopulmonary disease Electronically Signed: Dipak Coulter MD at 1:50 EST Tel , Service support , 07/19/18 01:15 Chest PA and Lateral [RAD] Stat Laboratory Results - Rhythm Strip Rhythm Strip: Sinus Rhythm Rate: 85 Ectopy: None - EKG Initial EKG Interpretation: Sinus Rhythm, No Acute Injury Pattern, Non- Specific ST Changes - mostly in precordial leads, possibly related to significant amount of artifact in baseline Prior: Unchanged - rhythm and gross morphology - Medical Decision Making Labs show nonspecific leukocytosis around 15. Chest x-ray unremarkable, troponin negative, BNP is in the 20s, ruling out acute decompensated congestive heart failure. EKG shows nonspecific T wave abnormalities however there is quite a bit of artifact as well. The morphology and axis are unchanged compared with her prior. Her chest discomfort is gone after nitroglycerin, she was also given an albuterol treatment and on reevaluation all of her symptoms are gone and she states she feels much better. Given her heart history and although her recent plain echo is negative, it was not a stress test, recommend admission to the hospital for further testing and risk stratification. She understands this and understands that if she is having unstable angina, she could go home and have a heart attack, but she wants to go home and refuses to stay. States that she has her son's car and he needs it to go to work in the morning. She will follow-up with cardiology or return if worse, or if she changes her mind she is welcome to return to become admitted. ED Disposition - Plan for ED Patient: Disposition: Against Medical Advice Chief Complaint: Shortness of Breath Diagnosis: Chest pain, unspecified, Dyspnea Instructions: ED Chest Pain Atypical Unkn Cause Referrals: You Parks MD [Primary Care Provider] - As soon as possible What to do if you have Problems For any increased pain, shortness of breath, bleeding, nausea or vomiting, chest pain, or any unexpected problems, contact your Primary Care Provider. Call [facility] ([phone]) or report to the closest Emergency Room. Call 911 if necessary. 07/19/18311 <Electronically signed by Shreyas Mary MD> Date Shreyas Mary MD Cosigner Signature (If Indicated): Date CC: You Parks MD CBC W/DIFF, AUTOMATED Collected: 07/19/2018 Status: F Source: [facility] 1:05 AM REPOSITORY TYPE CODE TESTS RESULT OUT OF RANGE REFERENCE UNITS LAB L100.1000 4.4-11.0 K/mm3 High WBC 15.1 LAB L100.1200 4.2-5.4 M/mm3 Normal RBC 4.45 LAB L100.1300 12.0-15.0 g/dl Low HGB 11.3 LAB L100.1400 37-47 % Low HCT 35.4 LAB L100.1500 81-99 fL Low MCV 79.6 LAB L100.1600 27.0-32.0 pg Low MCH 25.4 LAB L100.1700 32-36 g/gl Low MCHC 31.9 LAB L100.1810 11.6-14.6 % High RDW CV 17.4 LAB L100.1820 35.1-43.9 fl High RDW SD 50.7 LAB L100.1900 150-450 K/mm3 Normal PLT 314 LAB L100.2000 6.2-12.0 fl Normal MPV 8.9 LAB L100.2100 47-70 % High NEUT% 71.0 LAB L100.2200 19-41 % Normal LY% 19.4 LAB L100.2300 0-10 % Normal MONO% 7.0 LAB L100.2400 0-5 % Normal EO% 2.1 LAB L100.2500 0-1 % Normal BASO% 0.3 LAB L100.2550 0.0-0.9 % Normal IM GRAN % 0.200 Result Comment: IG% - Immature Granulocytes (promyelocytes, myelocytes and metamyelocytes) > 1% indicates that a LEFT SHIFT is Present. LAB L100.2620 2.0-7.7 X10 3/uL High Absolute Neut 10.7 LAB L100.2720 0.83-4.51 X10 3/ul Normal Absolute Lymph 2.93 Performed By: #### L100.0100 #### [facility] [address] [place], [place], [id number] BASIC METABOLIC Collected: 07/19/2018 Status: F Source: [facility] PROFILE ([facility]) 1:05 AM REPOSITORY TYPE CODE TESTS RESULT OUT OF RANGE REFERENCE UNITS LAB L501.0100 74-106 mg/dL High GLU 240 Result Comment: Glucose result greater than or equal to 200 mg/dL suggests DIABETES MELLITUS per A.D.A. criteria. Please note revised GLUCOSE reference range effective 2017. LAB L501.1000 7-18 mg/dL Normal BUN 15 LAB L501.1100 0.55-1.02 mg/dL High CREAT,SERUM 1.20 Result Comment: The validity of the calculated GFR AND GFRAA in patients over 70 years has not been determined. Clinical correlation is essential. LAB L501.1110 >60 mL/min Low EST GFR 48 Result Comment: Non- GFR Calc LAB L501.1115 >60 mL/min Low EST GFR - AA 58 Result Comment: GFR Calc LAB L501.1255 ml/min Normal Estimated CRCL 44.92 LAB L501.1300 10-20 RATIO Normal BUN/CRE 12.5 LAB L501.2200 8.5-10 mg/dL Normal .1 CA 9.3 LAB L501.5300 136-14 mmol/L Normal 5 NA 137 LAB L501.5600 3.5-5. mmol/L Normal 1 K 3.8 LAB L501.5900 98-107 mmol/L Normal CL 99 LAB L501.6100 21.0-3 mmol/L Normal 2.0 CO2 28.0 LAB L501.6200 5-15 Normal GAP 10 Performed By: #### L500.2500, L501.4010 #### [facility] [address] [place], [place], [id number] TROPONIN-I Collected: 07/19/2018 Status: F Source: [facility] 1:05 AM REPOSITORY TYPE CODE TESTS RESULT OUT OF RANGE REFERENCE UNITS LAB L501.4010 <0.045 ng/mL Normal < 0.015 TROPONIN-I Result Comment: TROPONIN-I EXPECTED VALUES <0.045 Negative 0.045 - 0.590 Consistent with Cardiac Damage > OR = 0.600 Critical Value Not every elevated troponin is indicative of VT. These values should be used with clinical judgement in examining the patient's clinical picture for diagnosis. To establish a diagnosis of VT versus myocardial injury, there must be a demonstrated rise and/or fall in the troponin values, in addition to ischemic symptoms, EKG changes, new regional wall motion abnormality, and/or angiographical evidence. PLEASE NOTE: REFERENCE RANGES EDITED 17 Performed By: #### L500.2500, L501.4010 #### [facility] [address] [place], [address] BNP,B-TYPE NATRIURETIC Collected: 07/19/2018 Status: F Source: [facility] 1:05 AM REPOSITORY TYPE CODE TESTS RESULT OUT OF RANGE REFERENCE UNITS LAB L503.6620 0-100 pg/mL Normal B-TYPE 21.9 LANDON PEP Performed By: #### L503.6620 #### [facility] [address] [place], [address] CHEST PA AND LATERAL Observed: 07/19/2018 Status: F Source: [facility] 12:47 AM REPOSITORY [facility] Imaging Services [address] [place] [address] Chest PA and Lateral MR#: [id number] Acct: [id number] Name: CRYSTAL CRAMER Rep #: [id number] : 1955 F 62 From: Dipak Coulter MD PCP: You Parks MD Status: [facility] ER Study: Chest PA and Lateral Date of Exam: 07/19/18 Exam# [id number] Ordering Dr: Shreyas Mary MD STUDY: X-RAY CHEST REASON FOR EXAM: Female, 62 years old. Shortness of breath TECHNIQUE: PA and lateral views of the chest. COMPARISON: 07/04/2018 FINDINGS: There is mild prominence of interstitial lung markings at bilateral lung bases, unchanged. No confluent airspace opacity. No pleural effusion or pneumothorax. Normal size heart. Normal mediastinum and judith. Normal visualized pulmonary arteries. There is atherosclerotic calcification of the aortic arch with tortuosity. There are mild diffuse degenerative changes of the visualized thoracic spine. Normal visualized ribs, clavicles, and shoulders. There is no demonstrated abnormality of the visualized soft tissue structures of the upper abdomen. RAD/Chest PA and Lateral IMPRESSION: Chronic bibasilar interstitial change with no evidence of acute cardiopulmonary disease Electronically Signed: Dipak Coulter MD at 1:50 EST Tel , Service support , CC: SHREYAS MARY MD; You Parks MD [employer]ier: Signed TROP Collected: 07/10/2018 Status: F Source: [place] 4:54 AM [facility] REPOSITORY TYPE CODE TESTS RESULT OUT OF REFERENCE UNITS RANGE LAB TROP(LOINC) 0.000-0.040 ng/mL Troponin 0.033 Result Comment: Troponin I reference range: 0.00-0.040 ng/mL Negative and non-diagnostic. >0.040 ng/mL Consistent with cardiac damage, increased clinical risk and possibility of myocardial infarction. Serial measurements, a rise & fall in test results, clinical history, appropriate symptoms and/or ECG changes may help assess possibility of VT. *Other non-acute coronary syndrome conditions such as CHF, myocarditis, pulmonary emboli, sepsis and cardiac surgery could result in myocardial damage and increased troponin levels. Performed By: #### FES, TROP, MG, GFR, BMP #### [place] [address] BMP Collected: 07/10/2018 Status: F Source: [facility] 4:54 AM [facility] REPOSITORY TYPE CODE TESTS RESULT OUT OF REFERENCE UNITS RANGE LAB GLU(LOINC) 80-115 mg/dL Low Glucose Level 77 LAB NA(LOINC) 136-145 mmol/L Sodium Level 142 LAB K(LOINC) 3.5-5.1 mmol/L Low Potassium Level 3.2 LAB CL(LOINC) 98-107 mmol/L Chloride 99 LAB CO2(LOINC) 23-31 mmol/L CO2 High 36 LAB EBAL(LOINC mEq/L ) Electrolyte Balance 7.0 LAB BUN(LOINC) 7-18 mg/dL BUN 12 LAB CRE(LOINC) 0.55-1.02 mg/dL Creatinine High Lvl (s) 1.19 LAB BC(LOINC) 7-27 ratio BUN/Creatinine 10 Ratio LAB CA(LOINC) 8.4-10.2 mg/dL Calcium Lvl 9.0 Performed By: #### FES, TROP, MG, GFR, BMP #### [place] [address] MG Collected: 07/10/2018 Status: F Source: [facility] 4:54 AM [facility] REPOSITORY TYPE CODE TESTS RESULT OUT OF REFERENCE UNITS RANGE LAB MG(LOINC) 1.8-2.4 mg/dL Magnesium Lvl 1.9 Performed By: #### FES, TROP, MG, GFR, BMP #### [place] [address] FES Collected: 07/10/2018 Status: F Source: [facility] 4:54 AM [facility] REPOSITORY TYPE CODE TESTS RESULT OUT OF RANGE REFERENCE UNITS LAB FE(LOINC) 50-70 mcg/dL Low Iron 31 LAB IBC(LOINC) 250-450 mcg/dL TIBC 320 LAB FESAT(LOINC % ) Iron Sat 10 Performed By: #### FES, TROP, MG, GFR, BMP #### [place] [address] .GFR Collected: 07/10/2018 Status: F Source: [facility] 4:54 AM [facility] REPOSITORY TYPE CODE TESTS RESULT OUT OF REFERENCE UNITS RANGE LAB GFRAA(LOINC ml/min/1.73 ) sqm GFR 56 English Result Comment: GFR Population mean for , Non- Americans Ages 20-29 = 116 mL/min/1.73 sq.m. Ages 30-39 = 107 mL/min/1.73 sq.m. Ages 40-49 = 99 mL/min/1.73 sq.m. Ages 50-59 = 93 mL/min/1.73 sq.m. Ages 60-69 = 85 mL/min/1.73 sq.m. Ages 70+ = 75 mL/min/1.73 sq.m. Chronic Kidney Disease: Less than 60 mL/min/1.73 square meters End Stage Renal Disease: Less than 15 mL/min/1.73 square meters LAB GFRNO(LOINC) ml/min/1.73sqm GFR Non- 46 Result Comment: GFR Population mean for , Non- Americans Ages 20-29 = 116 mL/min/1.73 sq.m. Ages 30-39 = 107 mL/min/1.73 sq.m. Ages 40-49 = 99 mL/min/1.73 sq.m. Ages 50-59 = 93 mL/min/1.73 sq.m. Ages 60-69 = 85 mL/min/1.73 sq.m. Ages 70+ = 75 mL/min/1.73 sq.m. Chronic Kidney Disease: Less than 60 mL/min/1.73 square meters End Stage Renal Disease: Less than 15 mL/min/1.73 square meters Performed By: #### FES, TROP, MG, GFR, BMP #### [address] [address] DIMER Collected: 07/09/2018 Status: F Source: [facility] 7:57 PM [facility] REPOSITORY TYPE CODE TESTS RESULT OUT OF RANGE REFERENCE UNITS LAB DIMER(LOINC 0-230 ng/mL D-DU ) High D-Dimer 291 Result Comment: The result of the D-Dimer test should be evaluated in the context of all the clinical and laboratory data available. In those instances where the laboratory result does not agree with the clinical evaluation, additional tests should be performed accordingly. If the D-Dimer result is used to exclude DVT or PE, the recommended cutoff value is less than 230 ng/mL. The D-Dimer result should not be used alone to rule in DVT/PE, but should be used in conjunction with a clinical pretest probability (PTP)assessment model to exclude venous thromboembolism (VTE) in outpatients suspected of deep venous thrombosis (DVT) and pulmonary embolism (PE). Performed By: #### DIMER #### [place] [id number] [place], [place] [address] XR CHEST 2 VIEWS Observed: 07/09/2018 Status: F Source: [facility] 6:46 PM [facility] REPOSITORY ORIGINAL XR CHEST 2 VIEWS CLINICAL STATEMENT: Chest Pain. COMPARISON: 05/24/2018 FINDINGS: The cardiac and mediastinal contours are within normal limits, stable. There is no significant pulmonary vascular congestion, focal consolidation, pleural effusion, or pneumothorax. No acute o sseous abnormality is identified. IMPRESSION: No acute radiographic findings. I have personally reviewed the images of this examination and agree with the resident's findings and interpretation. Interpreted By: Mukul Raines MD Preliminary Report By: Ayana Grayson MD Electronically Signed By: Mukul Raines MD Dictated Date: 07/09/2018 6:56:32 PM Prelim Date: 07/09/2018 6:57:00 PM Sign Date: 07/09/2018 7:07:34 PM CBC Collected: 07/09/2018 Status: F Source: [facility] 6:15 PM [facility] REPOSITORY TYPE CODE TESTS RESULT OUT OF REFERENCE UNITS RANGE LAB WBC(LOINC) 4.60-10.80 10 3/mcL High WBC 14.20 LAB RBCCT(LOINC 4.20-5.40 10 6/mcL ) RBC 4.31 LAB HGB(LOINC) 12.0-16.0 G/dL Low Hgb 10.8 LAB HCT(LOINC) 37.0-47.0 % Low Hct 33.4 LAB MCV(LOINC) 80.0-94.0 fL Low MCV 77.3 LAB MCH(LOINC) 27.0-31.2 pg Low MCH 25.0 LAB MCHC(LOINC) 33.0-37.0 G/dL Low MCHC 32.3 LAB RDW(LOINC) 11.5-14.5 % High RDW 19.5 LAB PLT(LOINC) 130-400 10 3/mcL Platelet 389 LAB MPV(LOINC) 7.4-10.4 fL Low MPV 7.3 Performed By: #### GFR, PBNP, BMP, TROP #### [address] [address] #### ANEU, ADIFF, CBC #### [address] [address] .AUTO DIFF Collected: 07/09/2018 Status: F Source: [facility] 6:15 PM [facility] REPOSITORY TYPE CODE TESTS RESULT OUT OF REFERENCE UNITS RANGE LAB REGINO(LOINC) 37.0-80.0 % High Neutrophil % 81.5 LAB LYM(LOINC) 10.0-50.0 % Lymphocyte % 10.6 LAB MON(LOINC) 1.7-13.0 % Monocyte % 5.4 LAB EO(LOINC) 0.0-7.0 % Eosinophil % 1.9 LAB BAS(LOINC) 0.0-2.5 % Basophil % 0.6 LAB ABLYM(LOIN 0.77-3.85 10 3/mcL C) Lymphocyte, 1.50 Absolute LAB MENDEL(LOINC 0.15-1.00 10 3/mcL ) Monocyte, 0.80 Absolute LAB AEOS(LOINC 0.00-0.40 10 3/mcL ) Eosinophil, 0.30 Absolute LAB ABAS(LOINC 0.00-0.19 10 3/mcL ) Basophil, 0.10 Absolute Performed By: #### GFR, PBNP, BMP, TROP #### [place] [address] #### ANEU, ADIFF, CBC #### [place] [address] [place], [place] [address] .NEUABS Collected: 07/09/2018 Status: F Source: [facility] 6:15 [facility] REPOSITORY TYPE CODE TESTS RESULT OUT OF REFERENCE UNITS RANGE LAB ANEU(LOINC) 2.85-6.16 10 3/mcL High Neutrophil, 11.50 Absolute Performed By: #### GFR, PBNP, BMP, TROP #### [place] [address] #### ANEU, ADIFF, CBC #### [place] [address] [place], [place] [address] BMP Collected: 07/09/2018 Status: F Source: [facility] 6:15 PM [facility] REPOSITORY TYPE CODE TESTS RESULT OUT OF REFERENCE UNITS RANGE LAB GLU(LOINC) 80-115 mg/dL Glucose High Level 137 LAB NA(LOINC) 136-145 mmol/L Sodium Level 137 LAB K(LOINC) 3.5-5.1 mmol/L Potassium Level 3.9 LAB CL(LOINC) 98-107 mmol/L Chloride 99 LAB CO2(LOINC) 23-31 mmol/L CO2 31 LAB EBAL(LOINC mEq/L ) Electrolyte Balance 7.0 LAB BUN(LOINC) 7-18 mg/dL BUN 12 LAB CRE(LOINC) 0.55-1.02 mg/dL Creatinine High Lvl (s) 1.16 LAB BC(LOINC) 7-27 ratio BUN/Creatinine 10 Ratio LAB CA(LOINC) 8.4-10.2 mg/dL Calcium Lvl 9.0 Performed By: #### GFR, PBNP, BMP, TROP #### [address] [address] #### ANEU, ADEMELI, CBC #### [place] [address] [address] .GFR Collected: 07/09/2018 Status: F Source: [facility] 6:15 [facility] REPOSITORY TYPE CODE TESTS RESULT OUT OF REFERENCE UNITS RANGE LAB GFRAA(LOINC ml/min/1.73 ) sqm GFR 57 English Result Comment: GFR Population mean for , Non- Americans Ages 20-29 = 116 mL/min/1.73 sq.m. Ages 30-39 = 107 mL/min/1.73 sq.m. Ages 40-49 = 99 mL/min/1.73 sq.m. Ages 50-59 = 93 mL/min/1.73 sq.m. Ages 60-69 = 85 mL/min/1.73 sq.m. Ages 70+ = 75 mL/min/1.73 sq.m. Chronic Kidney Disease: Less than 60 mL/min/1.73 square meters End Stage Renal Disease: Less than 15 mL/min/1.73 square meters LAB GFRNO(LOINC) ml/min/1.73sqm GFR Non- 47 Result Comment: GFR Population mean for , Non- Americans Ages 20-29 = 116 mL/min/1.73 sq.m. Ages 30-39 = 107 mL/min/1.73 sq.m. Ages 40-49 = 99 mL/min/1.73 sq.m. Ages 50-59 = 93 mL/min/1.73 sq.m. Ages 60-69 = 85 mL/min/1.73 sq.m. Ages 70+ = 75 mL/min/1.73 sq.m. Chronic Kidney Disease: Less than 60 mL/min/1.73 square meters End Stage Renal Disease: Less than 15 mL/min/1.73 square meters Performed By: #### GFR, PBNP, BMP, TROP #### [address] [address] #### ANEU, ADIFF, CBC #### [address] [address] TROP Collected: 07/09/2018 Status: F Source: [facility] 6:15 PM [facility] REPOSITORY TYPE CODE TESTS RESULT OUT OF REFERENCE UNITS RANGE LAB TROP(LOINC) 0.000-0.040 ng/mL Troponin <0.020 Result Comment: Troponin I reference range: 0.00-0.040 ng/mL Negative and non-diagnostic. >0.040 ng/mL Consistent with cardiac damage, increased clinical risk and possibility of myocardial infarction. Serial measurements, a rise & fall in test results, clinical history, appropriate symptoms and/or ECG changes may help assess possibility of VT. *Other non-acute coronary syndrome conditions such as CHF, myocarditis, pulmonary emboli, sepsis and cardiac surgery could result in myocardial damage and increased troponin levels. Performed By: #### GFR, PBNP, BMP, TROP #### [place] [address] #### ANEU, ADIFF, CBC #### [address] [address] PBNP Collected: 07/09/2018 Status: F Source: [facility] 6:15 [facility] REPOSITORY TYPE CODE TESTS RESULT OUT OF REFERENCE UNITS RANGE LAB PBNP(LOINC) 0-125 pg/mL High N-Terminal 558 proBNP Result Comment: NT-proBNP results of less than 300 pg/mL effectively rules out acute congestive heart failure with 99% negative predictive value. Performed By: #### GFR, PBNP, BMP, TROP #### [place] [address] #### ANEU, ADIFF, CBC #### [address] [address] ECHO, COMPLETE W/ Observed: 07/04/2018 Status: F Source: [facility] 4:32 PM REPOSITORY [facility] Cardiovascular Services [place] [address] Echo Complete W/ Contrast 07/04/18 1402 MR#: [id number] Acct: [id number] Name: CRYSTAL CRAMER Marissa Rep #: [id number] : 1955 62 From: Son Ellison MD Attending Dr: Son Ellison MD Status: REG CLI Ordering Dr: Son Ellison MD Date: 07/04/18 Location: [facility] Sex: F C Admitted: Reason For Study: CHF Procedure This was a 2D Doppler, Color Flow transthoracic echocardiogram. The study was technically difficult. Contrast injection was performed. Exam performed in department. Left Ventricle Normal LV size. Left ventricular systolic function is normal. The estimated ejection fraction is 60 %. Diastolic function is indeterminate. No regional wall motion abnormalities noted. Right Ventricle Normal RV size. Normal systolic function. Atria The left atrium is moderately enlarged. Normal right atrium. No doppler evidence for ASD. Mitral Valve There is no mitral annular calcification. Mild mitral valve prolapse, posterior leaflet. Trivial mitral valve insufficiency. Tricuspid Valve Normal tricuspid valve. Trivial tricuspid valve insufficiency. Unable to estimate RV systolic pressure/pulmonary artery pressure due to technically difficult study. Aortic Valve Trisinus/trileaflet aortic valve. Normal aortic valve. Pulmonic Valve The pulmonic valve is not well visualized. Great Vessels Normal sized aortic root. Pericardium/Pleural No pericardial effusion. Medication 22 gauge I.V. with prn adaptor inserted into right arm. Diluted definity 3ml given slow IV push to enhance endocardial definition. MMode/2D Measurements AND Calculations LVIDd: 5.0 cm IVSd: 1.1 cm LVOT diam: 2.2 cm LVIDs: 2.8 cm LVPWd: 1.1 cm RVDd: 3.1 cm FS: 44.3 % LVOT area: 3.8 cm2 Ao root diam: 3.2 cm LAV(MOD-bp): 72.1 ml LA A4 area: 22.7 cm2 LAV(MOD-bp) Indexed: 31.0 ml/m2 LAV(MOD-sp2): 69.7 ml LAV(MOD-sp4): 64.0 ml LA dimension(2D): 4.1 cm RA A4 area: 14.9 cm2 Doppler Measurements AND Calculations MV E max nemo: 108.0 cm/sec Lat Peak E' Nemo: 7.2 cm/sec Med Peak E' Nemo: 5.4 cm/sec MV A max nemo: 131.1 cm/sec E/E' lat: 14.9 E/E' med: 19.9 MV E/A: 0.82 Ao V2 max: 214.0 cm/sec LV V1 max: 141.2 cm/sec SV(LVOT): 122.5 ml Ao max P.3 mmHg LV V1 max P.0 mmHg Ao V2 mean: 146.4 cm/sec LV V1 mean P.3 mmHg Ao mean P.5 mmHg LV V1 mean: 99.3 cm/sec Ao V2 VTI: 41.2 cm LV V1 VTI: 32.2 cm RANDY(I,D): 3.0 cm2 RANDY(V,D): 2.5 cm2 PA V2 max: 113.5 cm/sec Interpretation Summary The study was technically difficult. Contrast injection was performed. Left ventricular systolic function is normal. The estimated ejection fraction is 60 %. The left atrium is moderately enlarged. Mild mitral valve prolapse, posterior leaflet Trivial mitral valve insufficiency. Trivial tricuspid valve insufficiency. Unable to estimate RV systolic pressure/pulmonary artery pressure due to technically difficult study. Diastolic function is indeterminate. Ordering Physician: Son Ellison Referring Physician: Son Ellison Performed By: Preethi Bell RDCS 07/04/18 1631 Date Son Ellison MD CC: Son Ellison MD; You Parks MD Date Dictated: 07/04/18 1402 Date Transcribed: 07/04/18 1631 Commercial Glazier: Signed BASIC METABOLIC Collected: 07/04/2018 Status: F Source: [facility] PROFILE (BMP) 3:17 PM REPOSITORY TYPE CODE TESTS RESULT OUT OF RANGE REFERENCE UNITS LAB L501.0100 74-106 mg/dL High GLU 147 Result Comment: Fasting Glucose result greater than or equal to 126 mg/dL suggests DIABETES MELLITUS per A.D.A. criteria. Please note revised GLUCOSE reference range effective 2017. LAB L501.1000 7-18 mg/dL High BUN 28 LAB L501.1100 0.55-1.02 mg/dL High CREAT,SERUM 2.14 Result Comment: The validity of the calculated GFR AND GFRAA in patients over 70 years has not been determined. Clinical correlation is essential. LAB L501.1110 >60 mL/min Low EST GFR 25 Result Comment: Non- GFR Calc LAB L501.1115 >60 mL/min Low EST GFR - AA 30 Result Comment: GFR Calc LAB L501.1300 10-20 RATIO Normal BUN/CRE 13.1 LAB L501.2200 8.5-10.1 mg/dL CA Normal 9.2 LAB L501.5300 136-145 mmol/L Low NA 133 LAB L501.5600 3.5-5.1 mmol/L Low K 3.1 LAB L501.5900 98-107 mmol/L Low CL 91 LAB L501.6100 21.0-32.0 mmol/L Normal CO2 32.0 LAB L501.6200 5-15 Normal GAP 10 Performed By: #### L500.2500 #### [facility] [address] [place], [address] BNP,B-TYPE NATRIURETIC Collected: 07/04/2018 Status: F Source: [facility] PEPTIDE 3:17 PM REPOSITORY TYPE CODE TESTS RESULT OUT OF RANGE REFERENCE UNITS LAB L503.6620 0-100 pg/mL Normal B-TYPE 69.2 LANDON PEP Performed By: #### L503.6620 #### [facility] [address] [place], [address] CHEST PA AND LATERAL Observed: 07/04/2018 Status: F Source: MARCUS 2:50 PM REPOSITORY [facility] Imaging Services [address] [place] [address] Chest PA and Lateral MR#: [id number] Acct: [id number] Name: CRYSTAL CRAMER Rep #: [id number] : 1955 F 62 From: Nick Sandoval MD PCP: You Parks MD Status: REG CLI Study: Chest PA and Lateral Date of Exam: 07/04/18 Exam# [id number] Ordering Dr: Son Ellison MD HISTORY: CHFCongestive Heart Failure EXAM: XR Chest 2 Views: COMPARISON: 2 view chest 05/23/2018 and CTA chest 04/18/2018 FINDINGS: Normal heart size. No vascular congestion, pleural effusion, or acute pulmonary infiltration. Atherosclerotic thoracic aorta. Mild dorsal kyphosis. RAD/Chest PA and Lateral IMPRESSION: No active cardiopulmonary disease. at 0634 Reported and signed by: Nick Sandoval MD Electronically Signed: Nick Sandoval, at 6:32 EST Tel , Service support , CC: Son Ellison MD; You Parks MD Commercial Glazier: Signed CARDIOLOGY VISIT Observed: 06/26/2018 Status: F Source: [facility] REPORT 5:31 PM REPOSITORY [facility] [place] [id number] [place] [address] OFFICE VISIT Date of Service: 06/26/18 MR#: [id number] Acct: [id number] Name: CRYSTAL CRAMER Rep #: [id number] : 1955 Provider: Son Ellison MD Age/Sex: 62/F Location: [facility] Status: Signed HPI HPI Details: CRYSTAL CRAMER, is a 62 F who presents to the office today for outpatient cardiovascular follow-up. She has been previously evaluated with her last outpatient cardiovascular visit being on 10/13/2015. At that time she was being followed for concerns of a apical ballooning syndrome/stress-induced cardiomyopathy superimposed upon a history of paroxysmal atrial fibrillation, hyperlipidemia, hypertension, and diabetes mellitus. She has not returned since that time. It appears that in November of this year at [facility] she had a transthoracic echocardiogram performed. At that time her LV was thought to be normal with an LVEF of 55-60%. She notes more recently she was admitted to [facility] because of concerns of shortness of breath/dyspnea and lower extremity edema diagnosed with congestive heart failure. A repeat echocardiogram was not performed. She was treated medically, had improvement, and was released home. She presents now for outpatient cardiovascular follow-up. She states overall she is doing better with her breathing and her lower extremity edema. She states she lost at least 10 pounds of fluid while she was in the hospital. She has had no other chest discomfort. There is been no near syncope or syncope. She had an ECG in the office today. She was noted to be in sinus rhythm with poor R wave progression. Intake Vital Signs06/26/18 Height 5 ft 6 in 06/26/18 Weight: 279 lb 06/26/18 Body Mass Index (BMI) 45.0 06/26/18 Blood Pressure 120/60 Intake Visit Reasons: D\Dr. Parks \P Referral Allergies ciprofloxacin [From Cipro] Allergy (Verified 06/26/18 13:09) Shortness of breath ciprofloxacin HCl [From Cipro] Allergy (Verified 06/26/18 13:09) Shortness of breath cyclobenzaprine [From Flexeril] Allergy (Verified 06/26/18 13:09) Rash cyclobenzaprine HCl [From Flexeril] Allergy (Verified 06/26/18 13:09) Rash ketorolac tromethamine [From Toradol] Allergy (Verified 06/26/18 13:09) Chest tightness sulfamethoxazole [From Bactrim] Allergy (Verified 06/26/18 13:09) Itching trimethoprim [From Bactrim] Allergy (Verified 06/26/18 13:09) Itching metformin Adverse Reaction (Verified 06/26/18 13:09) Other valacyclovir HCl [From Valtrex] Adverse Reaction (Verified 06/26/18 13:09) Other Medications Aspirin [Aspirin, Baby] 81 mg PO DAILY 05/07/16 [History Confirmed 06/26/18] Montelukast [Singulair] 10 mg PO DAILY 05/07/16 [History Confirmed 06/26/18] Ropinirole HCl [Requip] 1 mg PO QHS 05/07/16 [History Confirmed 06/26/18] Pregabalin [Lyrica] 150 mg PO BID 02/25/17 [History Confirmed 06/26/18] Hydrocodone/Acetaminophen [Hydrocodone-Acetamin 5-325 mg] 1 ea PO Q6H PRN PRN 06/01/17 [History Confirmed 06/26/18] proMETHazine tablet [Phenergan tablet] 25 mg PO TID PRN PRN 12/05/17 [History Confirmed 06/26/18] allopurinol 100 mg tablet 100 mg PO QDAY 03/24/18 [History Confirmed 06/26/18] lamotrigine 100 mg tablet 100 mg PO BID 03/24/18 [History Confirmed 06/26/18] levothyroxine 75 mcg capsule 75 mcg PO QDAY 03/24/18 [History Confirmed 06/26/18] simvastatin 40 mg tablet 40 mg PO QPM 03/24/18 [History Confirmed 06/26/18] Methadone HCl 5 mg PO DAILY 04/06/18 [History Confirmed 06/26/18] Methadone HCl [(None)] 10 mg PO QHS 04/06/18 [History Confirmed 06/26/18] Morphine [Morphine IR] 15 mg PO BID 05/23/18 [History Confirmed 06/26/18] Ondansetron [Zofran] 8 mg PO Q8H PRN PRN 05/23/18 [History Confirmed 06/26/18] furosemide 40 mg tablet 40 mg PO DAILY 06/25/18 [History Confirmed 06/26/18] carvedilol 3.125 mg tablet 3.125 mg PO BID #60 tab 06/26/18 [Rx Confirmed 06/26/18] haloperidol 0.5 mg tablet 1 mg PO TID tab 06/26/18 [History Confirmed 06/26/18] insulin degludec (U-100) 100 unit/mL (3 mL) subcutaneous pen 200 unit SC Q8AM ml 06/26/18 [History Confirmed 06/26/18] insulin regular human U- 500concentrate 500 unit/mL subcutaneous soln 50 unit SC BID ml 06/26/18 [History Confirmed 06/26/18] valsartan 80 mg tablet 80 mg PO DAILY 06/26/18 [History Confirmed 06/26/18] [facility] Medical History Congestive heart failure (Acute) Type 2 diabetes mellitus (Chronic) Old myocardial infarct (Acute) Diabetic gastroparesis (Chronic) SOB (shortness of breath) (Acute) Acute bronchitis (Acute) Weakness of both lower extremities (Chronic) GERD (gastroesophageal reflux disease) (Chronic) Seizure disorder (Chronic) Chronic anticoagulation (Chronic) Paroxysmal atrial fibrillation (Chronic) Chronic pain syndrome (Chronic) DM2 (diabetes mellitus, type 2) (Chronic) Takotsubo cardiomyopathy (Chronic) Iron deficiency anemia (Chronic) Diverticulitis (Chronic) Sepsis (Resolved) Depression (Chronic) Morbid obesity with BMI of 40.0-44.9, adult (Chronic) HLD (hyperlipidemia) (Chronic) Benign essential HTN (Chronic) CVA (cerebral vascular accident) (Acute) 2 para 2 (Acute) Diabetic gastroparesis (Chronic) Fibromyalgia (Chronic) QIAN (obstructive sleep apnea) (Chronic) Restless leg syndrome (Chronic) Diverticulitis (Acute) Fibromyalgia (Inactive) 2 para 2 (Inactive) History of CVA (cerebrovascular accident) (Inactive) Restless leg (Inactive) Surgical History History of cholecystectomy (Resolved) History of knee surgery (Resolved) Family History Mother Myocardial infarction Father Congestive heart failure Other Diabetes Heart disease Social History Smoking Status: Never smoker alcohol intake: never ROS Const Const: Negative for fatigue, weakness, weight gain, weight loss, frequent falls or excessive sweating Eyes Eyes: Negative for change in vision, blurry vision or transient loss of vision ENT ENT: Positive for balance problems (unsteadiness with ambulation); negative for dizziness Cardio Chest Pain: No Palpitations: No Edema: None Muscle aches with walking: None Resp Respiratory: Positive for SOB with activity (baseline) GI GI: Negative vomiting or vomiting blood/hematemesis : Negative for hematuria Musc Musc: Positive for balance problems (unsteadiness with ambulation), muscle aches/ myalgia (HX fibromyalgia) and joint pain (HX rheumatoid arthritis); negative for muscle weakness Skin Skin: Negative non-healing lesions or rash Neuro Neuro: Negative for weakness, blurry vision, dizziness, lightheadedness, frequent falls or orthostatic symptoms [place] Hematologic/Lymphatic: Negative for easy bleeding Endo Endo: Negative for fatigue or excessive sweating Psych Psych: Negative for anxiety or depression Allergy Allergy/Immunology: Negative for hives, Negative for rash Cardiology Exam Const Appearance: cooperative, healthy appearing, comfortable, well developed and well groomed Nutritional Appearance: obese Orientation: alert, awake and oriented x3 Head Head: normal to inspection, normocephalic and atraumatic Ears: hearing grossly normal bilaterally Nose: external nose normal Face and Sinus: face symmetric Mouth: oral mucosae normal Teeth and gingiva: fair dentition Eyes Eyelids: eyelids normal Conjunctivae: conjunctivae normal Pupils: PERRL EOM: EOM intact bilaterally Neck Neck: normal visual inspection and full ROM Carotids: normal carotid upstroke Chest Chest inspection: normal inspection of the chest, symmetric chest movement and normal respiratory effort Auscultation: Bilateral: Clear to Auscultation Cardio Palpation: normal PMI Rate: regular rate Rhythm: regular rhythm Heart sounds: S1 normal and S2 normal GI GI: obese, normal to inspection, bowel sounds present and soft Neuro General: alert, awake, oriented x3 and moves all extremities Skin Skin: no rashes or lesions noted Extremities Pulses: Normal: Right Radial Pulse, Left Radial Pulse Lower Extremity Edema: +1: Bilateral Psych Psychological: normal affect Supplemental Info Transthoracic echocardiogram: 10/28/2015: [facility] Interpretation Summary The study was technically difficult. Contrast injection was performed. Limited views were obtained. Left ventricular systolic function is normal. The estimated ejection fraction is 60 %. The left atrium is mildly enlarged. Bubble contrast study negative for right to left interatrial shunt. Stress test: 11/11/2014: [facility]: Pharmacologic stress nuclear imaging study: Considered equivocal for stress myocardial perfusion scan due to difficulties interpreting images from differential soft tissue attenuation with possible hypokinesis of the anterior apical wall which may suggest infarct but also may be compromised by soft tissue attenuation with possible distal lateral wall small extent mild severity ischemia with normal LV ejection fraction with an LVEF reported at 70% Cardiac catheterization: 09/20/2015: [facility] Final impression: 1. Elevated left ventricular end diastolic pressure compatible with decreased LV systolic function 2. Left ventricle: A. Hypokinesis of the distal anterior segment, akinesis of the anteroapical segment, hypokinesis of the mid to distal inferior segment, and akinesis of the inferior apical segment B. Estimated LVEF 35% 3. Left main coronary artery: A. Large short vessel B. Angiographically normal 4, Left anterior descending coronary artery: A. Angiographically normal 5. Left circumflex coronary artery: A. Angiographically normal 6. Right coronary artery: A. Large dominant vessel B. Angiographically normal Assessment AND Plan 1. Chronic congestive heart failure, unspecified heart failure type I50.9 Plan At the present time she appears to be without acute symptoms. She will continue her medical management as she has done better on her medications. She will have a follow-up echocardiogram to reassess her ventricular wall motion and systolic function. She will also have a follow-up BMP and a BNP. She was asked to have a follow-up chest x-ray as well peer Orders Orders: 2. Takotsubo cardiomyopathy I51.81 Plan She does have a history of underlying apical ballooning syndrome/stress- induced cardiomyopathy. Again based upon her recent events it would be reasonable to reassess her left ventricular wall motion systolic function. Thus she will have a follow- up echocardiogram performed. This would help guide further evaluation and care. Orders Orders: 3. Paroxysmal atrial fibrillation I48.0 Plan She has a history of an event of paroxysmal atrial fibrillation during a previous evaluation. There is been no report of any since that time. Thus she has appeared to remain in sinus rhythm. She has not required additional medical management and/or therapy. Orders Orders: 4. Hyperlipidemia, unspecified hyperlipidemia type E78.5 Plan She will continue risk factor evaluation care as deemed appropriate. 5. Benign essential HTN I10 Plan Her blood pressure appears to be recently well controlled. She will continue medical management and follow-up. 6. Type 2 diabetes mellitus with other specified complication, with long-term current use of insulin E11.9 Plan She will continue under the care of her primary care physician. Plan Detail Other Orders Orders: Other Medications New: Additional Comments Thank you for allowing me to participate in the care of your patient. Please don't hesitate to call if any issues arise. This note was generated using a voice recognition system and there may be incorrect words, spelling or punctuation that were not noted when reviewing the office note prior to saving. Follow Up 3 Months (PFM) Coding Level of Care Code Off vis,est,level 5 Diagnoses Chronic congestive heart failure, unspecified heart failure type I50.9 Heart failure chronicity: chronic Heart failure type: unspecified Takotsubo cardiomyopathy I51.81 Paroxysmal atrial fibrillation I48.0 Hyperlipidemia, unspecified hyperlipidemia type E78.5 Benign essential HTN I10 Type 2 diabetes mellitus with other specified complication, with long-term current use of insulin E11.9 Coding Level of Care Code Off vis,est,level 5 Diagnoses Chronic congestive heart failure, unspecified heart failure type I50.9 Heart failure chronicity: chronic Heart failure type: unspecified Takotsubo cardiomyopathy I51.81 Paroxysmal atrial fibrillation I48.0 Hyperlipidemia, unspecified hyperlipidemia type E78.5 Benign essential HTN I10 Type 2 diabetes mellitus with other specified complication, with long-term current use of insulin E11.9 06/26/18 6694 <Electronically signed by Son Ellison MD> Date Son Ellison MD Cosigner Signature: Date (if applicable) CC: You Parks MD 12 LEAD EKG PERFORMED Observed: 06/26/2018 Status: F Source: [facility] BY [facility] 1:08 PM REPOSITORY [facility] [address] [place] [address] 12 Lead EKG performed by [facility] 06/26/18 1308 MR#: [id number] Acct: [id number] Name: CRYSTAL CRAMER Rep #: [id number] : 1955 62 From: Son Ellison MD Attending Dr: Son Ellison MD Status: DEP AMB Ordering Dr: Son Ellison MD Date: 06/26/18 [place] [facility] Sex: F C Admitted: [facility]/12 Lead EKG performed by [facility] ECG Report Interpretation Somatic / motion artifactSinus Rhythm Leftward axisPoor R wave progressionElectronically signed on 06/26/2018 at 14:08 by Son Ellison Software Version [id number] 06/26/18 1411 Date Son Ellison MD CC: You Parks MD Date Dictated: 06/26/18 1308 Date Transcribed: 06/26/188 Commercial Glazier: PM Signed CBC Collected: 06/22/2018 Status: F Source: [facility] 5:00 AM [facility]OUNDATION REPOSITORY TYPE CODE TESTS RESULT OUT OF REFERENCE UNITS RANGE LAB WBC(LOINC) 4.60-10.80 10 3/mcL High WBC 14.60 LAB RBCCT(LOINC 4.20-5.40 10 6/mcL ) RBC 4.53 LAB HGB(LOINC) 12.0-16.0 G/dL Low Hgb 11.2 LAB HCT(LOINC) 37.0-47.0 % Low Hct 35.0 LAB MCV(LOINC) 80.0-94.0 fL Low MCV 77.2 LAB MCH(LOINC) 27.0-31.2 pg Low MCH 24.7 LAB MCHC(LOINC) 33.0-37.0 G/dL Low MCHC 31.9 LAB RDW(LOINC) 11.5-14.5 % High RDW 19.7 LAB PLT(LOINC) 130-400 10 3/mcL High Platelet 416 LAB MPV(LOINC) 7.4-10.4 fL Low MPV 7.2 Performed By: #### ANEU, CBC, ADIFF #### [address] [address] #### BMP, GFR #### [address] [address] .AUTO DIFF Collected: 06/22/2018 Status: F Source: [facility] 5:00 AM FOUNDATION REPOSITORY TYPE CODE TESTS RESULT OUT OF REFERENCE UNITS RANGE LAB REGINO(LOINC) 37.0-80.0 % High Neutrophil % 84.6 LAB LYM(LOINC) 10.0-50.0 % Low Lymphocyte % 8.0 LAB MON(LOINC) 1.7-13.0 % Monocyte % 6.1 LAB EO(LOINC) 0.0-7.0 % Eosinophil % 0.7 LAB BAS(LOINC) 0.0-2.5 % Basophil % 0.6 LAB ABLYM(LOIN 0.77-3.85 10 3/mcL C) Lymphocyte, 1.20 Absolute LAB MENDEL(LOINC 0.15-1.00 10 3/mcL ) Monocyte, 0.90 Absolute LAB AEOS(LOINC 0.00-0.40 10 3/mcL ) Eosinophil, 0.10 Absolute LAB ABAS(LOINC 0.00-0.19 10 3/mcL ) Basophil, 0.10 Absolute Performed By: #### ANEU, CBC, ADIFF #### [address] [address] #### BMP, GFR #### [address] [address] .NEUABS Collected: 06/22/2018 Status: F Source: [facility] 5:00 [facility] REPOSITORY TYPE CODE TESTS RESULT OUT OF REFERENCE UNITS RANGE LAB ANEU(LOINC) 2.85-6.16 10 3/mcL High Neutrophil, 12.40 Absolute Performed By: #### ANEU, CBC, ADIFF #### [place] [address] [place], [place] [address] #### BMP, GFR #### [address] [address] BMP Collected: 06/22/2018 Status: F Source: [facility] 5:00 [facility] REPOSITORY TYPE CODE TESTS RESULT OUT OF REFERENCE UNITS RANGE LAB GLU(LOINC) 80-115 mg/dL Glucose High Level 284 LAB NA(LOINC) 136-145 mmol/L Sodium Level 137 LAB K(LOINC) 3.5-5.1 mmol/L Low Potassium Level 3.1 LAB CL(LOINC) 98-107 mmol/L Low Chloride 95 LAB CO2(LOINC) 23-31 mmol/L CO2 High 33 LAB EBAL(LOINC mEq/L ) Electrolyte Balance 9.0 LAB BUN(LOINC) 7-18 mg/dL BUN 12 LAB CRE(LOINC) 0.55-1.02 mg/dL Creatinine High Lvl (s) 1.25 LAB BC(LOINC) 7-27 ratio BUN/Creatinine 10 Ratio LAB CA(LOINC) 8.4-10.2 mg/dL Calcium Lvl 9.3 Performed By: #### ANEU, CBC, ADIFF #### [address] [address] #### BMP, GFR #### [address] [address] .GFR Collected: 06/22/2018 Status: F Source: [facility] 5:00 [facility] REPOSITORY TYPE CODE TESTS RESULT OUT OF REFERENCE UNITS RANGE LAB GFRAA(LOINC ml/min/1.73 ) sqm GFR 52 English Result Comment: GFR Population mean for , Non- Americans Ages 20-29 = 116 mL/min/1.73 sq.m. Ages 30-39 = 107 mL/min/1.73 sq.m. Ages 40-49 = 99 mL/min/1.73 sq.m. Ages 50-59 = 93 mL/min/1.73 sq.m. Ages 60-69 = 85 mL/min/1.73 sq.m. Ages 70+ = 75 mL/min/1.73 sq.m. Chronic Kidney Disease: Less than 60 mL/min/1.73 square meters End Stage Renal Disease: Less than 15 mL/min/1.73 square meters LAB GFRNO(LOINC) ml/min/1.73sqm GFR Non- 43 Result Comment: GFR Population mean for , Non- Americans Ages 20-29 = 116 mL/min/1.73 sq.m. Ages 30-39 = 107 mL/min/1.73 sq.m. Ages 40-49 = 99 mL/min/1.73 sq.m. Ages 50-59 = 93 mL/min/1.73 sq.m. Ages 60-69 = 85 mL/min/1.73 sq.m. Ages 70+ = 75 mL/min/1.73 sq.m. Chronic Kidney Disease: Less than 60 mL/min/1.73 square meters End Stage Renal Disease: Less than 15 mL/min/1.73 square meters Performed By: #### ANEU, CBC, ADIFF #### [address] [address] #### BMP, GFR #### [address] [address] XR CHEST 2 VIEWS Observed: 05/24/2018 Status: F Source: [facility] 3:46 AM FOUNDATION REPOSITORY ORIGINAL Clinical history: Chest pain. Cough. Short of breath. COMPARISON: Chest x-ray on 05/15/2018 and 11/10/2014. The heart size is normal. There is no widening of the mediastinum. There is no acute infiltrate or pulmonary edema. Mild chronic prominence of interstitial markings is present. No pleural fluid or pneumothorax is present. Skeletal structures show no acute findings. There has been no change. IMPRESSION: No acute chest process. Interpreted By: Marco Carrillo MD Preliminary Report By: Marco Carrillo MD Electronically Signed By: Marco Carrillo MD Dictated Date: 05/24/2018 3:53:49 AM Prelim Date: 05/24/2018 3:53:49 AM Sign Date: 05/24/2018 3:55:35 AM CBC Collected: 05/24/2018 Status: F Source: [facility] 3:37 AM [facility] REPOSITORY TYPE CODE TESTS RESULT OUT OF REFERENCE UNITS RANGE LAB WBC(LOINC) 4.60-10.80 10 3/mcL High WBC 14.80 LAB RBCCT(LOINC 4.20-5.40 10 6/mcL ) RBC 4.46 LAB HGB(LOINC) 12.0-16.0 G/dL Low Hgb 10.5 LAB HCT(LOINC) 37.0-47.0 % Low Hct 34.0 LAB MCV(LOINC) 80.0-94.0 fL Low MCV 76.3 LAB MCH(LOINC) 27.0-31.2 pg Low MCH 23.7 LAB MCHC(LOINC) 33.0-37.0 G/dL Low MCHC 31.0 LAB RDW(LOINC) 11.5-14.5 % High RDW 19.2 LAB PLT(LOINC) 130-400 10 3/mcL Platelet 372 LAB MPV(LOINC) 7.4-10.4 fL Low MPV 7.1 Performed By: #### CBC, ANEU, ADIFF #### [address] [address] #### GFR, PBNP, TROP, BMP #### [address] [address] .AUTO DIFF Collected: 05/24/2018 Status: F Source: [facility] 3:37 AM [facility] REPOSITORY TYPE CODE TESTS RESULT OUT OF REFERENCE UNITS RANGE LAB REGINO(LOINC) 37.0-80.0 % Neutrophil % 78.4 LAB LYM(LOINC) 10.0-50.0 % Lymphocyte % 11.7 LAB MON(LOINC) 1.7-13.0 % Monocyte % 6.5 LAB EO(LOINC) 0.0-7.0 % Eosinophil % 2.7 LAB BAS(LOINC) 0.0-2.5 % Basophil % 0.7 LAB ABLYM(LOIN 0.77-3.85 10 3/mcL C) Lymphocyte, 1.70 Absolute LAB MENDEL(LOINC 0.15-1.00 10 3/mcL ) Monocyte, 1.00 Absolute LAB AEOS(LOINC 0.00-0.40 10 3/mcL ) Eosinophil, 0.40 Absolute LAB ABAS(LOINC 0.00-0.19 10 3/mcL ) Basophil, 0.10 Absolute Performed By: #### CBC, ANEU, ADIFF #### [address] [address] #### GFR, PBNP, TROP, BMP #### [place] [address] .NEUABS Collected: 05/24/2018 Status: F Source: [facility] 3:37 AM [facility] REPOSITORY TYPE CODE TESTS RESULT OUT OF REFERENCE UNITS RANGE LAB ANEU(LOINC) 2.85-6.16 10 3/mcL High Neutrophil, 11.60 Absolute Performed By: #### CBC, ANEU, ADIFF #### [place] [address] #### GFR, PBNP, TROP, BMP #### [place] [address] BMP Collected: 05/24/2018 Status: F Source: [facility] 3:37 AM [facility] REPOSITORY TYPE CODE TESTS RESULT OUT OF REFERENCE UNITS RANGE LAB GLU(LOINC) 80-115 mg/dL Glucose High Level 208 LAB NA(LOINC) 136-145 mmol/L Sodium Level 136 LAB K(LOINC) 3.5-5.1 mmol/L Potassium Level 4.4 LAB CL(LOINC) 98-107 mmol/L Low Chloride 96 LAB CO2(LOINC) 23-31 mmol/L CO2 High 33 LAB EBAL(LOINC mEq/L ) Electrolyte Balance 7.0 LAB BUN(LOINC) 7-18 mg/dL BUN 18 LAB CRE(LOINC) 0.55-1.02 mg/dL Creatinine High Lvl (s) 1.47 LAB BC(LOINC) 7-27 ratio BUN/Creatinine 12 Ratio LAB CA(LOINC) 8.4-10.2 mg/dL Calcium Lvl 9.7 Performed By: #### CBC, ANEU, ADIFF #### [address] [address] #### GFR, PBNP, TROP, BMP #### [place] [address] .GFR Collected: 05/24/2018 Status: F Source: [facility] 3:37 AM [facility] REPOSITORY TYPE CODE TESTS RESULT OUT OF REFERENCE UNITS RANGE LAB GFRAA(LOINC ml/min/1.73 ) sqm GFR 44 English Result Comment: GFR Population mean for , Non- Americans Ages 20-29 = 116 mL/min/1.73 sq.m. Ages 30-39 = 107 mL/min/1.73 sq.m. Ages 40-49 = 99 mL/min/1.73 sq.m. Ages 50-59 = 93 mL/min/1.73 sq.m. Ages 60-69 = 85 mL/min/1.73 sq.m. Ages 70+ = 75 mL/min/1.73 sq.m. Chronic Kidney Disease: Less than 60 mL/min/1.73 square meters End Stage Renal Disease: Less than 15 mL/min/1.73 square meters LAB GFRNO(LOINC) ml/min/1.73sqm GFR Non- 36 Result Comment: GFR Population mean for , Non- Americans Ages 20-29 = 116 mL/min/1.73 sq.m. Ages 30-39 = 107 mL/min/1.73 sq.m. Ages 40-49 = 99 mL/min/1.73 sq.m. Ages 50-59 = 93 mL/min/1.73 sq.m. Ages 60-69 = 85 mL/min/1.73 sq.m. Ages 70+ = 75 mL/min/1.73 sq.m. Chronic Kidney Disease: Less than 60 mL/min/1.73 square meters End Stage Renal Disease: Less than 15 mL/min/1.73 square meters Performed By: #### CBC, ANEU, ADIFF #### [place] [id number] [place], [place] [address] #### GFR, PBNP, TROP, BMP #### [address] [address] TROP Collected: 05/24/2018 Status: F Source: [facility] 3:37 AM [facility] REPOSITORY TYPE CODE TESTS RESULT OUT OF REFERENCE UNITS RANGE LAB TROP(LOINC) 0.000-0.040 ng/mL Troponin <0.020 Result Comment: Troponin I reference range: 0.00-0.040 ng/mL Negative and non-diagnostic. >0.040 ng/mL Consistent with cardiac damage, increased clinical risk and possibility of myocardial infarction. Serial measurements, a rise & fall in test results, clinical history, appropriate symptoms and/or ECG changes may help assess possibility of VT. *Other non-acute coronary syndrome conditions such as CHF, myocarditis, pulmonary emboli, sepsis and cardiac surgery could result in myocardial damage and increased troponin levels. Performed By: #### CBC, ANEU, ADIFF #### [address] [address] #### GFR, PBNP, TROP, BMP #### [place] [address] PBNP Collected: 05/24/2018 Status: F Source: [facility] 3:37 AM [facility] REPOSITORY TYPE CODE TESTS RESULT OUT OF REFERENCE UNITS RANGE LAB PBNP(LOINC) 0-125 pg/mL High N-Terminal 259 proBNP Result Comment: NT-proBNP results of less than 300 pg/mL effectively rules out acute congestive heart failure with 99% negative predictive value. Performed By: #### CBC, ANEU, ADIFF #### [address] [address] #### GFR, PBNP, TROP, BMP #### [place] [address] EMERGENCY DEPARTMENT Observed: 05/23/2018 Status: F Source: [place] SUMMARY 3:38 PM REPOSITORY [facility] Medical Records Department [address] [place] [address] Emergency Department Summary 05/23/18 1439 MR#: [id number] Acct: [id number] Name: CRYSTAL CRAMER Rep #: [id number] : 1955 62 From: Mukul Rico MD PCP: You Parks MD Status: DEP ER - ER Visit Summary Date of Service: 05/23/18 Chief Complaint: Fall, elbow pain History of Present Illness: The patient is a 62 F presents to the emergency department after mechanical fall. Patient states last night, she tripped. She landed on her left elbow and struck her left chest. She did not strike her head. She denies loss of consciousness. She denies any other injury. She states that she went to urgent care and they were concerned that she may have a punctured lung. That is why they sent her here. She has no pain in her neck or in her arm. She is not on anticoagulants. Physical Examination: Vital signs reviewed General: Well-nourished, well-developed Head: Normocephalic, atraumatic Eyes: Pupils equal and reactive, extraocular muscles intact Neck, supple, no lymphadenopathy Heart: Regular rate and rhythm Respiratory: No distress, clear bilaterally, mild tenderness in the left lower lateral ribs without step-off or crepitus Abdomen: Soft, nontender, nondistended, no peritoneal signs Back: Nontender Extremities: Ecchymosis over the left olecranon. Extension and flexion are preserved. Pulses are normal, no edema, no cords Skin: Normal color no rash Neuro: Alert and oriented, no focal or lateralizing deficits Test Results: [] Emergency Department Course and Treatment: Plain films were obtained of the chest and elbow. There is no evidence of acute fracture. The patient was given oral analgesics. I do feel that her symptoms are secondary to contusion. Basil wrap was placed on her elbow. She will continue Tylenol. At this time, I do feel that she is safe for up patient therapy. She is comfortable with this plan of care per Treatment Plan: [] Disposition: Discharge Impression: 1. Left rib contusion 2. Left elbow contusion This note was generated with Instagram dictation software. It may contain incorrect words, spelling, and punctuation that were not noted in review of the chart prior to signing ED Disposition - Plan for ED Patient: Chief Complaint: Fall Instructions: ED Mechanical Fall Referrals: You Parks MD [Primary Care Provider] - What to do if you have Problems For any increased pain, shortness of breath, bleeding, nausea or vomiting, chest pain, or any unexpected problems, contact your Primary Care Provider. Call [facility] ([phone]) or report to the closest Emergency Room. Call 911 if necessary. 05/23/18 1538 <Electronically signed by Mukul Rico MD> Date Mukul Rico MD Cosigner Signature (If Indicated): Date CC: You Parks MD CHEST PA AND LATERAL Observed: 05/23/2018 Status: F Source: [place] 1:58 PM REPOSITORY [facility] Imaging Services [address] [place] [address] Chest PA and Lateral MR#: [id number] Acct: [id number] Name: CRYSTAL CRAMER Rep #: [id number] : 1955 F 62 From: Bita Hunter MD PCP: You Parks MD Status: DEP ER Study: Chest PA and Lateral Date of Exam: 05/23/18 Exam# [id number] Ordering Dr: Mukul Rico MD STUDY: X-RAY CHEST REASON FOR EXAM: Female, 62 years old. LEFT SIDED RIB PAIN S/P FALL TECHNIQUE: Frontal and lateral views of the chest. COMPARISON: None. FINDINGS: The lungs are clear and expanded. There is no demonstrated pleural abnormality. Normal size heart. Normal mediastinum and judith. Normal visualized pulmonary arteries. Normal visualized aortic arch and descending thoracic aorta. There are diffuse degenerative changes of the visualized thoracic spine. There is degenerative osteoarthritis of the bilateral shoulders. There is no demonstrated abnormality of the visualized soft tissue structures of the upper abdomen. RAD/Chest PA and Lateral IMPRESSION: Degenerative changes, as described above. No demonstrated acute cardiopulmonary process. Electronically Signed: Bita Hunter MD at 15:43 EDT Tel , Service support , CC: Mukul Rico MD; You Parks MD Commercial Glazier: Signed ELBOW MIN 3 VIEWS Observed: 05/23/2018 Status: F Source: [place] 12:56 PM REPOSITORY [facility] Imaging Services [address] [place] [address] Elbow min 3 Views MR#: [id number] Acct: [id number] Name: CRYSTAL CRAMER Rep #: [id number] : 1955 F 62 From: Bita Hunter MD PCP: You Parks MD Status: PRE ER Study: Elbow min 3 Views Date of Exam: 05/23/18 Exam# [id number] Ordering Dr: Mukul Rico MD STUDY: X-RAY - LEFT ELBOW REASON FOR EXAM: Female, 62 years old. FELL LAST NIGHT; POSTERIOR ELBOW PAIN TECHNIQUE: 3 view(s) of the elbow. COMPARISON: None. FINDINGS: Normal visualized humerus, radius and ulna. Normal radiocapitellar and ulnotrochlear articulations. The soft tissue structures are unremarkable. RAD/Elbow min 3 Views IMPRESSION: Normal x-ray examination of the elbow. Electronically Signed: Bita Hunter MD at 13:36 EDT Tel , Service support , CC: Mukul Rico MD; You Parks MD Commercial Glazier: Signed PROGRESS Observed: 05/23/2018 Status: COMPLETED Source: [place] 12:28 PM [facility] REPOSITORY HNO ID: [id number] Author: Carlyn Wu Service: (none) Author Type: Nurse Practitioner Type: Progress Notes Filed: 05/23/2018 12:48 PM Note Text: SABRINA Cramer is a 62 year old female who presents today for CC of shortness breath and rib pain. Patient fell last night into counter and left side ribs hit chest. PO2 88-91% and labored breathing, tachypnic. BP 128/76 Pulse 88 Temp 37.2 ?C (99 ?F) Resp 30 Wt 129.3 kg (285 lb) BMI 46.00 kg/m? ALLERGIES Allergen Reactions - Bactrim [Sulfametho* Hives - Toradol [Ketorolac] Other: See Comments Increase BP - Ciprofloxacin Rash - Flexeril [Cyclobenz* Rash - Metformin Other: See Comments Migraines ACTIVE PROBLEM LIST Tuberculosis of Lung, Nodular, Confirmation Unspecified Diarrhea Nausea AND Vomiting Family History Problem Relation Age of Onset - Diabetes Mother - other (Crohn's disease) Mother - other (Crohn's disease) Son - other (Bone cancer) Father - Diabetes Maternal Grandmother Social History Marital status: Spouse name: Cheikh Years of education: Number of children: 2 Social History Main Topics Smoking status: Never Smoker Smokeless tobacco: Never Used Alcohol use: No Drug use: No PAST MEDICAL HISTORY Diagnosis Date - Coronary artery disease - Diarrhea - Diarrhea - PMH - PAST MEDICAL HISTORY OF high cholestrol - PMH - PAST MEDICAL HISTORY OF neck injury - Type II or unspecified type diabetes mellitus without mention of complication, not stated as uncontrolled - Unspecified essential hypertension PE:Decreased breath sounds on left lower lobes, with low oxygen level. ASSESSMENT/PLAN: 1. Borderline low oxygen saturation level - ICD9: 790.91, ICD10: R79.81 (primary diagnosis) 2. 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 REPOSITORY Office Visit ([facility]) CRYSTAL CRAMER ([id number]) 1955 F Date Time Provider Department [facility] During your visit today, we recorded the following information about you: Temperature Pulse Respiration Blood pressure 99 degrees 88/minute 30/minute 128/76 Weight 129.3 kg Carlyn Wu APRN.CNP 05/23/2018 12:48 PM Signed HPI Crystal Cramer is a 62 year old female who presents today for CC of shortness breath and rib pain. Patient fell last night into counter and left side ribs hit chest. PO2 88-91% and labored breathing, tachypnic. BP 128/76 Pulse 88 Temp 37.2 ?C (99 ?F) Resp 30 Wt 129.3 kg (285 lb) BMI 46.00 kg/m? ALLERGIES Allergen Reactions - Bactrim [Sulfametho* Hives - Toradol [Ketorolac] Other: See Comments Increase BP - Ciprofloxacin Rash - Flexeril [Cyclobenz* Rash - Metformin Other: See Comments Migraines ACTIVE PROBLEM LIST Tuberculosis of Lung, Nodular, Confirmation Unspecified Diarrhea Nausea AND Vomiting Family History Problem Relation Age of Onset - Diabetes Mother - other (Crohn's disease) Mother - other (Crohn's disease) Son - other (Bone cancer) Father - Diabetes Maternal Grandmother Social History Marital status: Spouse name: Cheikh Years of education: Number of children: 2 Social History Main Topics Smoking status: Never Smoker Smokeless tobacco: Never Used Alcohol use: No Drug use: No PAST MEDICAL HISTORY Diagnosis Date - Coronary artery disease - Diarrhea - Diarrhea - PMH - PAST MEDICAL HISTORY OF high cholestrol - PMH - PAST MEDICAL HISTORY OF neck injury - Type II or unspecified type diabetes mellitus without mention of complication, not stated as uncontrolled - Unspecified essential hypertension PE:Decreased breath sounds on left lower lobes, with low oxygen level. ASSESSMENT/PLAN: 1. Borderline low oxygen saturation level - ICD9: 790.91, ICD10: R79.81 (primary diagnosis) 2. SOB (shortness of breath) - ICD9: 786.05, ICD10: R06.02 Due to nature of patient's complaint and lack of investigative tools available at [facility], recommend patient be seen at nearest ED, refused Squad friend present will transport, report called to [place] [facility]. Carlyn Wu CNP Referring Provider: SELF [[id number]] Allergies As of Date: 05/23/2018 Noted Allergy Reaction BACTRIM (SULFAMETHOXAZOLE-TRIMETH*07/31/2017 4 - Hives TORADOL (KETOROLAC) 03/22/2006 14 - Other: See Comments Comments: Increase BP CIPROFLOXACIN 06/10/2013 2 - Rash FLEXERIL (CYCLOBENZAPRINE) 06/10/2013 2 - Rash METFORMIN 06/28/2017 14 - Other: See Comments Comments: Migraines Date Reviewed: 05/23/2018 Reviewed by: Carole ([facility]) KENROY Henriquez - Fully Assessed Reason for Visit: Fall [218] Cmt: pain in left side ribs, fell yesterday into kitchen counter, trouble breathing today Primary Visit Diagnosis:Borderline low oxygen saturation level [R79.81] Other Visit Diagnosis:SOB (shortness of breath) [R06.02] Prescriptions as of 05/23/2018 Sig: NALOXEGOL 25 MG TABLET Take 25 mg by mouth once alicia* HALOPERIDOL 0.5 MG TABLET Take 0.5 mg by mouth twice da* METHADONE 5 MG TABLET Take 10 mg by mouth once alicia* ONDANSETRON 8 MG DISINTEGRATI* Take 1 tablet by mouth every * PROMETHAZINE 25 MG TABLET Take 1 tablet by mouth every * LAMOTRIGINE 100 MG TABLET Take 100 mg by mouth twice da* LEVOTHYROXINE 50 MCG CAPSULE Take by mouth once daily. SERTRALINE 100 MG TABLET Take 100 mg by mouth once scotty* ALLOPURINOL 100 MG TABLET Take 100 mg by mouth once scotty* VALSARTAN 80 MG TABLET Take 80 mg by mouth once alicia* ASPIRIN 81 MG TABLET,DELAYED * Take 81 mg by mouth once alicia* TRESIBA FLEXTOUCH U-100 SUBCU* Inject 120 mg subcutaneously * HUMALOG SUBCUTANEOUS Inject subcutaneously as dir* SUMATRIPTAN SUCCINATE ORAL Take by mouth as needed. MONTELUKAST 10 MG TABLET Take 10 mg by mouth daily at * ROPINIROLE 1 MG TABLET Take 1 mg by mouth once daily. SIMVASTATIN 40 MG TABLET Take 40 mg by mouth daily at * PREGABALIN 75 MG CAPSULE Take 150 mg by mouth twice da* OMEPRAZOLE 40 MG CAPSULE,HUMBLE* Take 40 mg by mouth once alicia* VICODIN ORAL Take by mouth. METOCLOPRAMIDE 5 MG TABLET Take 1 tablet by mouth four t* Patient not taking: Reported on 05/23/2018 PROMETHAZINE 25 MG TAB (PHENE* Take 25 mg by mouth three mikki* APREPITANT 40 MG CAPSULE Take 1 capsule by mouth once * Patient not taking: Reported on 12/18/2017 IMMUNE GLOB,GAMMA(IGG) 10 GRA* 400mg/kg IV weekly for 12 wee* Patient not taking: Reported on 12/18/2017 TRIMETHOBENZAMIDE 300 MG CAPS* Take 1 capsule by mouth three* Patient not taking: Reported on 05/23/2018 MIRTAZAPINE 15 MG TABLET Take 1 tablet by mouth daily * Patient not taking: Reported on 05/23/2018 MORPHINE 15 MG IMMEDIATE RELE* Take 15 mg by mouth every 4 h* METOCLOPRAMIDE 10 MG TABLET Take 1 tablet by mouth three * Patient not taking: Reported on 12/18/2017 ONDANSETRON HCL 4 MG TABLET Take 1 tablet by mouth every * Patient not taking: Reported on 12/18/2017 SUCRALFATE 1 GRAM TABLET Take 1 g by mouth four times * OLMESARTAN 40 MG TABLET Take 40 mg by mouth once alicia* NOVOLOG PENFILL SUBCUTANEOUS Inject subcutaneously. NOVOLOG FLEXPEN SUBCUTANEOUS Inject subcutaneously. Slidi* EXENATIDE ER 2 MG/0.65 ML SUB* Inject subcutaneously. Problem List As Of Date 05/23/2018 Noted Resolved TB LUNG NODULAR-UNSPEC [A15.0] INVALID FOR* DIARRHEA NOS [R19.7] INVALID FOR* Nausea AND vomiting [R11.2] INVALID FOR* Encounter Status:Closed by CARLYN WU CNP on 05/23/18 CBC Collected: 05/20/2018 Status: F Source: [facility] 9:39 AM [facility] REPOSITORY TYPE CODE TESTS RESULT OUT OF REFERENCE UNITS RANGE LAB WBC(LOINC) 4.60-10.80 10 3/mcL High WBC 13.70 LAB RBCCT(LOINC 4.20-5.40 10 6/mcL ) Low RBC 4.15 LAB HGB(LOINC) 12.0-16.0 G/dL Low Hgb 9.9 LAB HCT(LOINC) 37.0-47.0 % Low Hct 31.5 LAB MCV(LOINC) 80.0-94.0 fL Low MCV 75.8 LAB MCH(LOINC) 27.0-31.2 pg Low MCH 23.9 LAB MCHC(LOINC) 33.0-37.0 G/dL Low MCHC 31.5 LAB RDW(LOINC) 11.5-14.5 % High RDW 18.6 LAB PLT(LOINC) 130-400 10 3/mcL Platelet 390 LAB MPV(LOINC) 7.4-10.4 fL MPV 7.6 Performed By: #### ANEU, ADEMELI, CBC #### [address] [address] #### PBNP, GFR, BMP #### [place] [address] .AUTO DIFF Collected: 05/20/2018 Status: F Source: [facility] 9:39 AM [facility] REPOSITORY TYPE CODE TESTS RESULT OUT OF REFERENCE UNITS RANGE LAB REGINO(LOINC) 37.0-80.0 % Neutrophil % 67.7 LAB LYM(LOINC) 10.0-50.0 % Lymphocyte % 19.8 LAB MON(LOINC) 1.7-13.0 % Monocyte % 8.7 LAB EO(LOINC) 0.0-7.0 % Eosinophil % 3.3 LAB BAS(LOINC) 0.0-2.5 % Basophil % 0.5 LAB ABLYM(LOIN 0.77-3.85 10 3/mcL C) Lymphocyte, 2.70 Absolute LAB MENDEL(LOINC 0.15-1.00 10 3/mcL ) High Monocyte, 1.20 Absolute LAB AEOS(LOINC 0.00-0.40 10 3/mcL ) Eosinophil, 0.40 Absolute LAB ABAS(LOINC 0.00-0.19 10 3/mcL ) Basophil, 0.10 Absolute Performed By: #### ANEU, ADIFF, CBC #### [place] [id number] #### PBNP, GFR, BMP #### [place] [address] .NEUABS Collected: 05/20/2018 Status: F Source: [facility] 9:39 AM [facility] REPOSITORY TYPE CODE TESTS RESULT OUT OF REFERENCE UNITS RANGE LAB ANEU(LOINC) 2.85-6.16 10 3/mcL High Neutrophil, 9.20 Absolute Performed By: #### ANEU, ADIFF, CBC #### [address] [address] #### PBNP, GFR, BMP #### [place] [address] BMP Collected: 05/20/2018 Status: F Source: [facility] 9:39 AM [facility] REPOSITORY TYPE CODE TESTS RESULT OUT OF REFERENCE UNITS RANGE LAB GLU(LOINC) 80-115 mg/dL Glucose High Level 270 LAB NA(LOINC) 136-145 mmol/L Low Sodium Level 131 LAB K(LOINC) 3.5-5.1 mmol/L Potassium Level 5.1 LAB CL(LOINC) 98-107 mmol/L Low Chloride 92 LAB CO2(LOINC) 23-31 mmol/L CO2 High 34 LAB EBAL(LOINC mEq/L ) Electrolyte Balance 5.0 LAB BUN(LOINC) 7-18 mg/dL BUN High 19 LAB CRE(LOINC) 0.55-1.02 mg/dL Creatinine High Lvl (s) 1.60 LAB BC(LOINC) 7-27 ratio BUN/Creatinine 12 Ratio LAB CA(LOINC) 8.4-10.2 mg/dL Calcium Lvl 9.7 Performed By: #### ANEU, ADIFF, CBC #### [address] [address] #### PBNP, GFR, BMP #### [place] [id number] [place] [address] .GFR Collected: 05/20/2018 Status: F Source: [facility] 9:39 AM [facility] REPOSITORY TYPE CODE TESTS RESULT OUT OF REFERENCE UNITS RANGE LAB GFRAA(LOINC ml/min/1.73 ) sqm GFR 39 English Result Comment: GFR Population mean for , Non- Americans Ages 20-29 = 116 mL/min/1.73 sq.m. Ages 30-39 = 107 mL/min/1.73 sq.m. Ages 40-49 = 99 mL/min/1.73 sq.m. Ages 50-59 = 93 mL/min/1.73 sq.m. Ages 60-69 = 85 mL/min/1.73 sq.m. Ages 70+ = 75 mL/min/1.73 sq.m. Chronic Kidney Disease: Less than 60 mL/min/1.73 square meters End Stage Renal Disease: Less than 15 mL/min/1.73 square meters LAB GFRNO(LOINC) ml/min/1.73sqm GFR Non- 33 Result Comment: GFR Population mean for , Non- Americans Ages 20-29 = 116 mL/min/1.73 sq.m. Ages 30-39 = 107 mL/min/1.73 sq.m. Ages 40-49 = 99 mL/min/1.73 sq.m. Ages 50-59 = 93 mL/min/1.73 sq.m. Ages 60-69 = 85 mL/min/1.73 sq.m. Ages 70+ = 75 mL/min/1.73 sq.m. Chronic Kidney Disease: Less than 60 mL/min/1.73 square meters End Stage Renal Disease: Less than 15 mL/min/1.73 square meters Performed By: #### ANEUANGELIFF, CBC #### [address] [address] #### PBNP, GFR, BMP #### [address] [address] PBNP Collected: 05/20/2018 Status: F Source: [facility] 9:39 AM [facility] REPOSITORY TYPE CODE TESTS RESULT OUT OF REFERENCE UNITS RANGE LAB PBNP(LOINC) 0-125 pg/mL High N-Terminal 150 proBNP Result Comment: NT-proBNP results of less than 300 pg/mL effectively rules out acute congestive heart failure with 99% negative predictive value. Performed By: #### EMILY, FRED, CBC #### [address] [address] #### PBNP, GFR, BMP #### [place] [id number] CBC W/DIFF, AUTOMATED Collected: 05/16/2018 Status: F Source: [place] 10:47 AM REPOSITORY TYPE CODE TESTS RESULT OUT OF RANGE REFERENCE UNITS LAB L100.1000 4.4-11.0 K/mm3 High WBC 12.9 LAB L100.1200 4.2-5.4 M/mm3 Low RBC 4.10 LAB L100.1300 12.0-15.0 g/dl Low HGB 9.7 LAB L100.1400 37-47 % Low HCT 31.9 LAB L100.1500 81-99 fL Low MCV 77.8 LAB L100.1600 27.0-32.0 pg Low MCH 23.7 LAB L100.1700 32-36 g/gl Low MCHC 30.4 LAB L100.1810 11.6-14.6 % High RDW CV 17.3 LAB L100.1820 35.1-43.9 fl High RDW SD 49.6 LAB L100.1900 150-450 K/mm3 Normal PLT 437 LAB L100.2000 6.2-12.0 fl Normal MPV 9.2 LAB L100.2100 47-70 % High NEUT% 75.0 LAB L100.2200 19-41 % Low LY% 14.0 LAB L100.2300 0-10 % Normal MONO% 7.6 LAB L100.2400 0-5 % Normal EO% 3.0 LAB L100.2500 0-1 % Normal BASO% 0.2 LAB L100.2550 0.0-0.9 % Normal IM GRAN % 0.200 Result Comment: IG% - Immature Granulocytes (promyelocytes, myelocytes and metamyelocytes) > 1% indicates that a LEFT SHIFT is Present. LAB L100.2620 2.0-7.7 X10 3/uL High Absolute Neut 9.7 LAB L100.2720 0.83-4.51 X10 3/ul Normal Absolute Lymph 1.81 Performed By: #### L100.0100, L101.9900 #### [facility] [address] [facility] [id number] ERYTHROCYTE SED RATE Collected: 05/16/2018 Status: F Source: [place] 10:47 AM REPOSITORY TYPE CODE TESTS RESULT OUT OF RANGE REFERENCE UNITS LAB L102.0000 0-30 mm/hr High SED RATE 102 Performed By: #### L100.0100, L101.9900 #### [facility] [address] [facility] [id number] COMPREHENSIVE METABOLIC Collected: 05/16/2018 Status: F Source: [facility] 10:47 AM REPOSITORY TYPE CODE TESTS RESULT OUT OF RANGE REFERENCE UNITS LAB L501.0100 74-106 mg/dL High GLU 134 Result Comment: Fasting Glucose result greater than or equal to 126 mg/dL suggests DIABETES MELLITUS per A.D.A. criteria. Please note revised GLUCOSE reference range effective 2017. LAB L501.1000 7-18 mg/dL Normal BUN 17 LAB L501.1100 0.55-1.02 mg/dL High CREAT,SERUM 1.39 Result Comment: The validity of the calculated GFR AND GFRAA in patients over 70 years has not been determined. Clinical correlation is essential. LAB L501.1110 >60 mL/min Low EST GFR 41 Result Comment: Non- GFR Calc LAB L501.1115 >60 mL/min Low EST GFR - AA 49 Result Comment: GFR Calc LAB L501.1300 10-20 RATIO Normal BUN/CRE 12.2 LAB L501.1500 6.4-8.2 g/dL T Normal PROT 7.3 LAB L501.1800 3.2-5.0 g/dL Low ALB 3.0 LAB L501.1950 2.2-4.2 g/dL High GLOB 4.3 LAB L501.2000 0.9-2.4 RATIO Low A/G 0.7 LAB L501.2200 8.5-10.1 mg/dL CA Normal 8.9 LAB L501.4100 15-37 U/L Normal AST 33 LAB L501.4305 45-117 U/L High ALK P 169 LAB L501.4405 13-56 U/L Normal ALT 23 LAB L501.4600 0.20-1.00 mg/dL T Normal BILI 0.80 LAB L501.5300 136-145 mmol/L Low NA 131 LAB L501.5600 3.5-5.1 mmol/L K Normal 3.9 LAB L501.5900 98-107 mmol/L Low CL 89 LAB L501.6100 21.0-32.0 mmol/L High CO2 33.0 LAB L501.6200 5-15 Normal GAP 9 Performed By: #### L500.4050, L501.6710, L505.7010 #### [facility] [address] [place], [place], [id number] CRP Collected: 05/16/2018 Status: F Source: [place] 10:47 AM REPOSITORY TYPE CODE TESTS RESULT OUT OF RANGE REFERENCE UNITS LAB L501.6710 0.0-3.0 mg/L High 45.40 C-REACTIVE PROT Result Comment: C-Reactive Protein (CRP) provides useful information for the diagnosis, therapy and monitoring of inflammatory processes and associated diseases. For the evaluation of Relative Risk for Cardiovascular Disease, a High Sensitivity CRP (HSCRP) should be ordered. Performed By: #### L500.4050, L501.6710, L505.7010 #### [facility] [address] [place], [address] RHEUMATOID FACTOR Collected: 05/16/2018 Status: F Source: [place] 10:47 AM REPOSITORY TYPE CODE TESTS RESULT OUT OF RANGE REFERENCE UNITS LAB L505.7010 <15 IU/mL Normal RHEUMATOID FAC < 10.0 Performed By: #### L500.4050, L501.6710, L505.7010 #### [facility] [address] [place], [address] PELVIS 1 OR 2 VIEWS Observed: 05/16/2018 Status: F Source: [place] 10:47 AM REPOSITORY [facility] Imaging Services [address] [place] [address] Pelvis 1 or 2 Views MR#: [id number] Acct: [id number] Name: CRYSTAL CRAMER Rep #: [id number] : 1955 F 62 From: Clarence Skinner MD PCP: You Parks MD Status: REG CLI Study: Pelvis 1 or 2 Views Date of Exam: 05/16/18 Exam# [id number] Ordering Dr: Samra Jacques MD STUDY: X-RAY - PELVIS REASON FOR EXAM: Female, 62 years old. Inflammatory polyarthropathy TECHNIQUE: One view of the pelvis was obtained. COMPARISON: None. FINDINGS: There is a non-specific bowel gas pattern. Normal visualized soft tissue structures. Normal bilateral iliac wings, sacroiliac joints and visualized sacrum. Normal visualized bilateral superior and inferior pubic rami. Normal pubic symphysis. Normal ischial tuberosities. Normal visualized right femoral head. Normal right acetabulum. Normal right hip joint. Normal visualized left femoral head. Normal left acetabulum. Normal left hip joint. RAD/Pelvis 1 or 2 Views IMPRESSION: Normal x-ray examination of the pelvis. Electronically Signed: Clarence Skinner MD at 18:30 EDT , Service support , CC: Samra Jacques MD; You Parks MD Commercial Glazier: Signed ANTINUCLEAR ANTIBODIES Collected: 05/16/2018 Status: F Source: [facility] 10:47 AM REPOSITORY TYPE CODE TESTS RESULT OUT OF RANGE REFERENCE UNITS LAB L3100.5475 Negative Normal Negative AMBER-DIRECT Result Comment: Performed at: [facility] [address] [id number] Hand Tennis Ball Coverer: Salazar Palma PhD, Phone: [phone] Performed By: #### L3100.5475 #### [facility] (refer to report for specific site) refer to report for address and phone number HEPATITIS B SURFACE Collected: 05/16/2018 Status: F Source: [facility] 10:47 AM REPOSITORY TYPE CODE TESTS RESULT OUT OF RANGE REFERENCE UNITS LAB L3100.0400 Negative Normal HB Negative SURF AG Result Comment: Performed at: [facility] [address] [id number] Hand Tennis Ball Coverer: Salazar Palma PhD, Phone: [phone] Performed at: - [address] [id number] Hand Tennis Ball Coverer: Trevon Moncada PhD, Phone: [phone] Performed at: - [address] [id number] Hand Tennis Ball Coverer: Nabeel Hendrix MD, Phone: [phone] Performed By: #### L3100.0390, L3100.0528, L3100.0625, L3410.1400, L4600.0100 #### [facility] (refer to report for specific site) refer to report for address and phone number HEP B SURFACE Collected: 05/16/2018 Status: F Source: [facility] ANTIBODIES 10:47 AM REPOSITORY TYPE CODE TESTS RESULT OUT OF RANGE REFERENCE UNITS LAB L3100.0528 . Normal Hep B Non Reactive Aly AB Result Comment: Non Reactive: Inconsistent with immunity, less than 10 mIU/mL Reactive: Consistent with immunity, greater than 9.9 mIU/mL Performed By: #### L3100.0390, L3100.0528, L3100.0625, L3410.1400, L4600.0100 #### [facility] (refer to report for specific site) refer to report for address and phone number HEPATITIS C ANTIBODIES Collected: 05/16/2018 Status: F Source: [facility] 10:47 AM REPOSITORY TYPE CODE TESTS RESULT OUT OF RANGE REFERENCE UNITS LAB L3100.0650 0.0-0.9 s/co ratio Normal HEP C AB 0.4 Result Comment: Negative: < 0.8 Indeterminate: 0.8 - 0.9 Positive: > 0.9 The CDC recommends that a positive HCV antibody result be followed up with a HCV Nucleic Acid Amplification test (557270). Performed By: #### L3100.0390, L3100.0528, L3100.0625, L3410.1400, L4600.0100 #### [facility] (refer to report for specific site) refer to report for address and phone number HLA B27 Collected: 05/16/2018 Status: F Source: [facility] 10:47 AM REPOSITORY TYPE CODE TESTS RESULT OUT OF RANGE REFERENCE UNITS LAB L3410.1500 . Normal HLA Negative B27 Result Comment: HLA-B*27 Negative B27 allele interpretation for all loci based on IMGT/HLA database version 3.27 This test was developed and its performance characteristics determined by [facility]. It has not been cleared or approved by the Food and Drug Administration. [facility] CLIA ID Number [id number] This test was performed using PCR (Polymerase Chain Reaction)/SSOP (Sequence Specific Oligonucleotide Probes) technique. SBT (Sequence Based Typing) and/or SSP (Sequence Specific Primers) may be used as supplemental methods when necessary. Please contact [facility] Customer Service at if you have any questions. Director of [facility] Laboratory Dr Trevon Moncada, PhD Performed By: #### L3100.0390, L3100.0528, L3100.0625, L3410.1400, L4600.0100 #### [facility] (refer to report for specific site) refer to report for address and phone number CCP IGG ANTIBODIES Collected: 05/16/2018 Status: F Source: [facility] 10:47 AM REPOSITORY TYPE CODE TESTS RESULT OUT OF RANGE REFERENCE UNITS LAB L4600.0100 0-19 units Normal ANTI-CCP 6 [id number] Result Comment: Negative <20 Weak positive 20 - 39 Moderate positive 40 - 59 Strong positive >59 Performed By: #### L3100.0390, L3100.0528, L3100.0625, L3410.1400, L4600.0100 #### [facility] (refer to report for specific site) refer to report for address and phone number XR CHEST 2 VIEWS Observed: 05/15/2018 Status: F Source: [facility] 7:30 AM [facility] REPOSITORY ORIGINAL Clinical history: Short of breath. Bilateral lower extremity edema. COMPARISON: Chest x-ray on 05/06/2018. Heart size is normal. There is no acute infiltrate or pulmonary edema. No pleural fluid or pneumothorax is present. IMPRESSION: No acute chest process. Interpreted By: Marco Carrillo MD Preliminary Report By: Marco Carrillo MD Electronically Signed By: Marco Carrillo MD Dictated Date: 05/15/2018 7:47:24 AM Prelim Date: 05/15/2018 7:47:24 AM Sign Date: 05/15/2018 7:49:06 AM CBC Collected: 05/15/2018 Status: F Source: [facility] 5:12 AM [facility] REPOSITORY TYPE CODE TESTS RESULT OUT OF REFERENCE UNITS RANGE LAB WBC(LOINC) 4.60-10.80 10 3/mcL High WBC 12.50 LAB RBCCT(LOINC 4.20-5.40 10 6/mcL ) Low RBC 3.90 LAB HGB(LOINC) 12.0-16.0 G/dL Low Hgb 9.4 LAB HCT(LOINC) 37.0-47.0 % Low Hct 29.1 LAB MCV(LOINC) 80.0-94.0 fL Low MCV 74.6 LAB MCH(LOINC) 27.0-31.2 pg Low MCH 24.0 LAB MCHC(LOINC) 33.0-37.0 G/dL Low MCHC 32.1 LAB RDW(LOINC) 11.5-14.5 % High RDW 18.1 LAB PLT(LOINC) 130-400 10 3/mcL Platelet 399 LAB MPV(LOINC) 7.4-10.4 fL Low MPV 7.3 Performed By: #### ANEU, CBC, ADIFF #### [address] [address] #### FES, MG, GFR, BMP #### [address] [address] .AUTO DIFF Collected: 05/15/2018 Status: F Source: [facility] 5:12 AM [facility] REPOSITORY TYPE CODE TESTS RESULT OUT OF REFERENCE UNITS RANGE LAB REGINO(LOINC) 37.0-80.0 % Neutrophil % 64.0 LAB LYM(LOINC) 10.0-50.0 % Lymphocyte % 22.8 LAB MON(LOINC) 1.7-13.0 % Monocyte % 9.4 LAB EO(LOINC) 0.0-7.0 % Eosinophil % 3.0 LAB BAS(LOINC) 0.0-2.5 % Basophil % 0.8 LAB ABLYM(LOIN 0.77-3.85 10 3/mcL C) Lymphocyte, 2.80 Absolute LAB MENDEL(LOINC 0.15-1.00 10 3/mcL ) High Monocyte, 1.20 Absolute LAB AEOS(LOINC 0.00-0.40 10 3/mcL ) Eosinophil, 0.40 Absolute LAB ABAS(LOINC 0.00-0.19 10 3/mcL ) Basophil, 0.10 Absolute Performed By: #### ANEU, CBC, ADIFF #### [address] [address] #### FES, MG, GFR, BMP #### [address] [address] .NEUABS Collected: 05/15/2018 Status: F Source: [facility] 5:12 AM [facility] REPOSITORY TYPE CODE TESTS RESULT OUT OF REFERENCE UNITS RANGE LAB ANEU(LOINC) 2.85-6.16 10 3/mcL High Neutrophil, 8.00 Absolute Performed By: #### ANEU, CBC, ADIFF #### [address] [address] #### FES, MG, GFR, BMP #### [address] [address] BMP Collected: 05/15/2018 Status: F Source: [facility] 5:12 AM [facility] REPOSITORY TYPE CODE TESTS RESULT OUT OF REFERENCE UNITS RANGE LAB GLU(LOINC) 80-115 mg/dL Glucose High Level 155 LAB NA(LOINC) 136-145 mmol/L Sodium Level 137 LAB K(LOINC) 3.5-5.1 mmol/L Potassium Level 4.1 LAB CL(LOINC) 98-107 mmol/L Low Chloride 95 LAB CO2(LOINC) 23-31 mmol/L CO2 High 37 LAB EBAL(LOINC mEq/L ) Electrolyte Balance 5.0 LAB BUN(LOINC) 7-18 mg/dL BUN 14 LAB CRE(LOINC) 0.55-1.02 mg/dL Creatinine High Lvl (s) 1.40 LAB BC(LOINC) 7-27 ratio BUN/Creatinine 10 Ratio LAB CA(LOINC) 8.4-10.2 mg/dL Calcium Lvl 9.0 Performed By: #### ANEU, CBC, ADIFF #### [address] [address] #### FES, MG, GFR, BMP #### [address] [address] MG Collected: 05/15/2018 Status: F Source: [facility] 5:12 AM [facility] REPOSITORY TYPE CODE TESTS RESULT OUT OF REFERENCE UNITS RANGE LAB MG(LOINC) 1.8-2.4 mg/dL Low Magnesium Lvl 1.6 Performed By: #### ANEU, CBC, ADIFF #### [address] [address] #### FES, MG, GFR, BMP #### [address] [address] FES Collected: 05/15/2018 Status: F Source: [facility] 5:12 AM [facility] REPOSITORY TYPE CODE TESTS RESULT OUT OF RANGE REFERENCE UNITS LAB FE(LOINC) 50-70 mcg/dL Low Iron 18 LAB IBC(LOINC) 250-450 mcg/dL TIBC 284 LAB FESAT(LOINC % ) Iron Sat 6 Performed By: #### ANEU, CBC, ADIFF #### [place] [place], [place] [address] #### FES, MG, GFR, BMP #### [address] [address] .GFR Collected: 05/15/2018 Status: F Source: [facility] 5:12 AM [facility] REPOSITORY TYPE CODE TESTS RESULT OUT OF REFERENCE UNITS RANGE LAB GFRAA(LOINC ml/min/1.73 ) sqm GFR 46 English Result Comment: GFR Population mean for , Non- Americans Ages 20-29 = 116 mL/min/1.73 sq.m. Ages 30-39 = 107 mL/min/1.73 sq.m. Ages 40-49 = 99 mL/min/1.73 sq.m. Ages 50-59 = 93 mL/min/1.73 sq.m. Ages 60-69 = 85 mL/min/1.73 sq.m. Ages 70+ = 75 mL/min/1.73 sq.m. Chronic Kidney Disease: Less than 60 mL/min/1.73 square meters End Stage Renal Disease: Less than 15 mL/min/1.73 square meters LAB GFRNO(LOINC) ml/min/1.73sqm GFR Non- 38 Result Comment: GFR Population mean for , Non- Americans Ages 20-29 = 116 mL/min/1.73 sq.m. Ages 30-39 = 107 mL/min/1.73 sq.m. Ages 40-49 = 99 mL/min/1.73 sq.m. Ages 50-59 = 93 mL/min/1.73 sq.m. Ages 60-69 = 85 mL/min/1.73 sq.m. Ages 70+ = 75 mL/min/1.73 sq.m. Chronic Kidney Disease: Less than 60 mL/min/1.73 square meters End Stage Renal Disease: Less than 15 mL/min/1.73 square meters Performed By: #### ANEU, CBC, ADIFF #### [address] [place], [place] [address] #### FES, MG, GFR, BMP #### [address] [address] BMP Collected: 05/14/2018 Status: F Source: [facility] 11:12 AM [facility] REPOSITORY TYPE CODE TESTS RESULT OUT OF REFERENCE UNITS RANGE LAB GLU(LOINC) 80-115 mg/dL Glucose High Level 278 LAB NA(LOINC) 136-145 mmol/L Low Sodium Level 134 LAB K(LOINC) 3.5-5.1 mmol/L Potassium Level 4.3 LAB CL(LOINC) 98-107 mmol/L Low Chloride 96 LAB CO2(LOINC) 23-31 mmol/L CO2 30 LAB EBAL(LOINC mEq/L ) Electrolyte Balance 8.0 LAB BUN(LOINC) 7-18 mg/dL BUN 14 LAB CRE(LOINC) 0.55-1.02 mg/dL Creatinine High Lvl (s) 1.47 LAB BC(LOINC) 7-27 ratio BUN/Creatinine 10 Ratio LAB CA(LOINC) 8.4-10.2 mg/dL Calcium Lvl 9.1 Performed By: #### BMP, GFR #### [address] [address] .GFR Collected: 05/14/2018 Status: F Source: [facility] 11:12 AM [facility] REPOSITORY TYPE CODE TESTS RESULT OUT OF REFERENCE UNITS RANGE LAB GFRAA(LOINC ml/min/1.73 ) sqm GFR 44 English Result Comment: GFR Population mean for , Non- Americans Ages 20-29 = 116 mL/min/1.73 sq.m. Ages 30-39 = 107 mL/min/1.73 sq.m. Ages 40-49 = 99 mL/min/1.73 sq.m. Ages 50-59 = 93 mL/min/1.73 sq.m. Ages 60-69 = 85 mL/min/1.73 sq.m. Ages 70+ = 75 mL/min/1.73 sq.m. Chronic Kidney Disease: Less than 60 mL/min/1.73 square meters End Stage Renal Disease: Less than 15 mL/min/1.73 square meters LAB GFRNO(LOINC) ml/min/1.73sqm GFR Non- 36 Result Comment: GFR Population mean for , Non- Americans Ages 20-29 = 116 mL/min/1.73 sq.m. Ages 30-39 = 107 mL/min/1.73 sq.m. Ages 40-49 = 99 mL/min/1.73 sq.m. Ages 50-59 = 93 mL/min/1.73 sq.m. Ages 60-69 = 85 mL/min/1.73 sq.m. Ages 70+ = 75 mL/min/1.73 sq.m. Chronic Kidney Disease: Less than 60 mL/min/1.73 square meters End Stage Renal Disease: Less than 15 mL/min/1.73 square meters Performed By: #### BMP, GFR #### [address] [address] CBC Collected: 05/13/2018 Status: F Source: [facility] 2:41 [facility] REPOSITORY TYPE CODE TESTS RESULT OUT OF REFERENCE UNITS RANGE LAB WBC(LOINC) 4.60-10.80 10 3/mcL High WBC 13.10 LAB RBCCT(LOINC 4.20-5.40 10 6/mcL ) Low RBC 4.08 LAB HGB(LOINC) 12.0-16.0 G/dL Low Hgb 9.7 LAB HCT(LOINC) 37.0-47.0 % Low Hct 31.1 LAB MCV(LOINC) 80.0-94.0 fL Low MCV 76.2 LAB MCH(LOINC) 27.0-31.2 pg Low MCH 23.8 LAB MCHC(LOINC) 33.0-37.0 G/dL Low MCHC 31.2 LAB RDW(LOINC) 11.5-14.5 % High RDW 18.8 LAB PLT(LOINC) 130-400 10 3/mcL High Platelet 441 LAB MPV(LOINC) 7.4-10.4 fL MPV 8.4 Performed By: #### ADIFF, CBC, ANEU #### [address] [place], [place] [address] #### GFR, PBNP, BMP #### [address] [address] .AUTO DIFF Collected: 05/13/2018 Status: F Source: [facility] 2:41 [facility] REPOSITORY TYPE CODE TESTS RESULT OUT OF REFERENCE UNITS RANGE LAB REGINO(LOINC) 37.0-80.0 % Neutrophil % 73.6 LAB LYM(LOINC) 10.0-50.0 % Lymphocyte % 13.9 LAB MON(LOINC) 1.7-13.0 % Monocyte % 8.5 LAB EO(LOINC) 0.0-7.0 % Eosinophil % 3.0 LAB BAS(LOINC) 0.0-2.5 % Basophil % 1.0 LAB ABLYM(LOIN 0.77-3.85 10 3/mcL C) Lymphocyte, 1.80 Absolute LAB MENDEL(LOINC 0.15-1.00 10 3/mcL ) High Monocyte, 1.10 Absolute LAB AEOS(LOINC 0.00-0.40 10 3/mcL ) Eosinophil, 0.40 Absolute LAB ABAS(LOINC 0.00-0.19 10 3/mcL ) Basophil, 0.10 Absolute Performed By: #### FRED, CBC, ANEU #### [address] [place], [place] [address] #### GFR, PBNP, BMP #### [place] [address] .NEUABS Collected: 05/13/2018 Status: F Source: [facility] 2:41 [facility] REPOSITORY TYPE CODE TESTS RESULT OUT OF REFERENCE UNITS RANGE LAB ANEU(LOINC) 2.85-6.16 10 3/mcL High Neutrophil, 9.70 Absolute Performed By: #### FRED, CBC, ANEU #### [address] [place], [place] [address] #### GFR, PBNP, BMP #### [place] [address] BMP Collected: 05/13/2018 Status: F Source: [facility] 2:41 [facility] REPOSITORY TYPE CODE TESTS RESULT OUT OF REFERENCE UNITS RANGE LAB GLU(LOINC) 80-115 mg/dL Glucose High Level 223 LAB NA(LOINC) 136-145 mmol/L Low Sodium Level 133 LAB K(LOINC) 3.5-5.1 mmol/L Potassium High Level 5.9 LAB CL(LOINC) 98-107 mmol/L Low Chloride 96 LAB CO2(LOINC) 23-31 mmol/L CO2 30 LAB EBAL(LOINC mEq/L ) Electrolyte Balance 7.0 LAB BUN(LOINC) 7-18 mg/dL BUN 14 LAB CRE(LOINC) 0.55-1.02 mg/dL Creatinine High Lvl (s) 1.31 LAB BC(LOINC) 7-27 ratio BUN/Creatinine 11 Ratio LAB CA(LOINC) 8.4-10.2 mg/dL Calcium Lvl 9.5 Performed By: #### ADEMELI, CBC, ANEU #### [facility] [address] [place], [place] [address] #### GFR, PBNP, BMP #### [address] [address] .GFR Collected: 05/13/2018 Status: F Source: [facility] 2:41 PM [facility] REPOSITORY TYPE CODE TESTS RESULT OUT OF REFERENCE UNITS RANGE LAB GFRAA(LOINC ml/min/1.73 ) sqm GFR 50 English Result Comment: GFR Population mean for , Non- Americans Ages 20-29 = 116 mL/min/1.73 sq.m. Ages 30-39 = 107 mL/min/1.73 sq.m. Ages 40-49 = 99 mL/min/1.73 sq.m. Ages 50-59 = 93 mL/min/1.73 sq.m. Ages 60-69 = 85 mL/min/1.73 sq.m. Ages 70+ = 75 mL/min/1.73 sq.m. Chronic Kidney Disease: Less than 60 mL/min/1.73 square meters End Stage Renal Disease: Less than 15 mL/min/1.73 square meters LAB GFRNO(LOINC) ml/min/1.73sqm GFR Non- 41 Result Comment: GFR Population mean for , Non- Americans Ages 20-29 = 116 mL/min/1.73 sq.m. Ages 30-39 = 107 mL/min/1.73 sq.m. Ages 40-49 = 99 mL/min/1.73 sq.m. Ages 50-59 = 93 mL/min/1.73 sq.m. Ages 60-69 = 85 mL/min/1.73 sq.m. Ages 70+ = 75 mL/min/1.73 sq.m. Chronic Kidney Disease: Less than 60 mL/min/1.73 square meters End Stage Renal Disease: Less than 15 mL/min/1.73 square meters Performed By: #### ADIFF, CBC, ANEU #### [address] [place], [place] [address] #### GFR, PBNP, BMP #### [facility] [address] [place] [address] PBNP Collected: 05/13/2018 Status: F Source: [facility] 2:41 PM [facility] REPOSITORY TYPE CODE TESTS RESULT OUT OF REFERENCE UNITS RANGE LAB PBNP(LOINC) 0-125 pg/mL High N-Terminal 584 proBNP Result Comment: NT-proBNP results of less than 300 pg/mL effectively rules out acute congestive heart failure with 99% negative predictive value. Performed By: #### ADIFF, CBC, ANEU #### [address] [place], [place] [address] #### GFR, PBNP, BMP #### [place] [id number] [place], [place] [id number] XR CHEST 2 VIEWS Observed: 05/06/2018 Status: F Source: [facility] 1:41 PM [facility] REPOSITORY ORIGINAL XR CHEST 2 VIEWS CLINICAL STATEMENT: SOB. COMPARISON: 07/19/2015 FINDINGS: The heart size is normal. There is no vascular congestion or focal infiltrate. No pleural abnormality is seen. IMPRESSION: No acute process. Interpreted By: Kala Rust MD Preliminary Report By: Kala Rust MD Electronically Signed By: Kala Rust MD Dictated Date: 05/06/2018 1:49:28 PM Prelim Date: 05/06/2018 1:49:28 PM Sign Date: 05/06/2018 1:50:23 PM CBC Collected: 05/06/2018 Status: F Source: [facility] 1:22 PM [facility] REPOSITORY TYPE CODE TESTS RESULT OUT OF REFERENCE UNITS RANGE LAB WBC(LOINC) 4.60-10.80 10 3/mcL High WBC 11.80 LAB RBCCT(LOINC 4.20-5.40 10 6/mcL ) Low RBC 4.19 LAB HGB(LOINC) 12.0-16.0 G/dL Low Hgb 10.2 LAB HCT(LOINC) 37.0-47.0 % Low Hct 31.1 LAB MCV(LOINC) 80.0-94.0 fL Low MCV 74.3 LAB MCH(LOINC) 27.0-31.2 pg Low MCH 24.4 LAB MCHC(LOINC) 33.0-37.0 G/dL Low MCHC 32.9 LAB RDW(LOINC) 11.5-14.5 % High RDW 17.8 LAB PLT(LOINC) 130-400 10 3/mcL Platelet 318 LAB MPV(LOINC) 7.4-10.4 fL Low MPV 7.3 Performed By: #### ANEU, ADIFF, CBC #### [address] [address] #### GFR, PBNP, BMP #### [address] [address] .AUTO DIFF Collected: 05/06/2018 Status: F Source: [facility] 1:22 PM [facility] REPOSITORY TYPE CODE TESTS RESULT OUT OF REFERENCE UNITS RANGE LAB REGINO(LOINC) 37.0-80.0 % Neutrophil % 75.7 LAB LYM(LOINC) 10.0-50.0 % Lymphocyte % 13.5 LAB MON(LOINC) 1.7-13.0 % Monocyte % 6.5 LAB EO(LOINC) 0.0-7.0 % Eosinophil % 3.6 LAB BAS(LOINC) 0.0-2.5 % Basophil % 0.7 LAB ABLYM(LOIN 0.77-3.85 10 3/mcL C) Lymphocyte, 1.60 Absolute LAB MENDEL(LOINC 0.15-1.00 10 3/mcL ) Monocyte, 0.80 Absolute LAB AEOS(LOINC 0.00-0.40 10 3/mcL ) Eosinophil, 0.40 Absolute LAB ABAS(LOINC 0.00-0.19 10 3/mcL ) Basophil, 0.10 Absolute Performed By: #### ANEU, ADIFF, CBC #### [address] [address] #### GFR, PBNP, BMP #### [address] [address] .NEUABS Collected: 05/06/2018 Status: F Source: [facility] 1:22 PM [facility] REPOSITORY TYPE CODE TESTS RESULT OUT OF REFERENCE UNITS RANGE LAB ANEU(LOINC) 2.85-6.16 10 3/mcL High Neutrophil, 8.90 Absolute Performed By: #### ANEU, ADIFF, CBC #### [address] [address] #### GFR, PBNP, BMP #### [address] [address] BMP Collected: 05/06/2018 Status: F Source: [facility] 1:22 PM [facility] REPOSITORY TYPE CODE TESTS RESULT OUT OF REFERENCE UNITS RANGE LAB GLU(LOINC) 80-115 mg/dL Glucose High Level 203 LAB NA(LOINC) 136-145 mmol/L Low Sodium Level 132 LAB K(LOINC) 3.5-5.1 mmol/L Potassium Level 4.6 LAB CL(LOINC) 98-107 mmol/L Low Chloride 95 LAB CO2(LOINC) 23-31 mmol/L CO2 27 LAB EBAL(LOINC mEq/L ) Electrolyte Balance 10.0 LAB BUN(LOINC) 7-18 mg/dL BUN 12 LAB CRE(LOINC) 0.55-1.02 mg/dL Creatinine High Lvl (s) 1.16 LAB BC(LOINC) 7-27 ratio BUN/Creatinine 10 Ratio LAB CA(LOINC) 8.4-10.2 mg/dL Calcium Lvl 8.7 Performed By: #### ANEU, ADIFF, CBC #### [address] [address] #### GFR, PBNP, BMP #### [address] [address] .GFR Collected: 05/06/2018 Status: F Source: [facility] 1:22 PM [facility] REPOSITORY TYPE CODE TESTS RESULT OUT OF REFERENCE UNITS RANGE LAB GFRAA(LOINC ml/min/1.73 ) sqm GFR 57 English Result Comment: GFR Population mean for , Non- Americans Ages 20-29 = 116 mL/min/1.73 sq.m. Ages 30-39 = 107 mL/min/1.73 sq.m. Ages 40-49 = 99 mL/min/1.73 sq.m. Ages 50-59 = 93 mL/min/1.73 sq.m. Ages 60-69 = 85 mL/min/1.73 sq.m. Ages 70+ = 75 mL/min/1.73 sq.m. Chronic Kidney Disease: Less than 60 mL/min/1.73 square meters End Stage Renal Disease: Less than 15 mL/min/1.73 square meters LAB GFRNO(LOINC) ml/min/1.73sqm GFR Non- 47 Result Comment: GFR Population mean for , Non- Americans Ages 20-29 = 116 mL/min/1.73 sq.m. Ages 30-39 = 107 mL/min/1.73 sq.m. Ages 40-49 = 99 mL/min/1.73 sq.m. Ages 50-59 = 93 mL/min/1.73 sq.m. Ages 60-69 = 85 mL/min/1.73 sq.m. Ages 70+ = 75 mL/min/1.73 sq.m. Chronic Kidney Disease: Less than 60 mL/min/1.73 square meters End Stage Renal Disease: Less than 15 mL/min/1.73 square meters Performed By: #### ANEU, ADEMELI, CBC #### [address] [address] #### GFR, PBNP, BMP #### [place] [address] PBNP Collected: 05/06/2018 Status: F Source: [facility] 1:22 PM [facility] REPOSITORY TYPE CODE TESTS RESULT OUT OF REFERENCE UNITS RANGE LAB PBNP(LOINC) 0-125 pg/mL High N-Terminal 284 proBNP Result Comment: NT-proBNP results of less than 300 pg/mL effectively rules out acute congestive heart failure with 99% negative predictive value. Performed By: #### ANEU, ADIFF, CBC #### [address] [address] #### GFR, PBNP, BMP #### [place] [id number] 12 LEAD ELECTROCARDIOGRAM Observed: 04/22/2018 Status: F Source: [place] 1:36 PM REPOSITORY [facility] Cardiovascular Services [place] [address] 12 Lead EKG 04/17/18 2307 MR#: [id number] Acct: [id number] Name: CRYSTAL CRAMER Rep #: [id number] : 1955 62 From: Mansoor Hassan MD Attending Dr: Status: DEP ER Ordering Dr: Marcus Loya DO Date: 04/17/18 Location: ED Sex: F C Admitted: Test Reason : SOB Blood Pressure : / mmHG Vent. Rate : 090 BPM Atrial Rate : 090 BPM P-R Int : 152 ms QRS Dur : 086 ms QT Int : 398 ms P-R-T Axes : 015 -19 051 degrees QTc Int : 486 ms Normal sinus rhythm Normal ECG Confirmed by MANSOOR HASSAN ([id number]), video effects editor MAIKEL MULLEN ([id number]) on 04/22/2018 1:35:57 PM Referred By: JONATHAN Confirmed By:MANSOOR HASSAN 04/22/18 1336 Date Mansoor Hassan MD CC: You Parks MD; Marcus Loya Signed EMERGENCY DEPARTMENT Observed: 04/18/2018 Status: F Source: [place] SUMMARY 8:13 AM REPOSITORY [facility] Medical Records Department [address] [place] [address] Emergency Department Summary 04/17/18 2313 MR#: [id number] Acct: [id number] Name: CRYSTAL CRAMER Rep #: [id number] : 1955 62 From: Marcus Mortensen PCP: You Parks MD Status: REG ER ADDENDUM by Marcus Loya on 04/18/18 at 0813 Prior to discharge, patient complained and nursing of continued dyspnea. Negative chest x-ray. Normal EKG. Pulse ox and respiratory rate stable even with ambulation. Discussed with patient concerns further evaluate with CTA of the chest. She agrees. In the interim, IV was lost, nursing was able to eventually get access. CT scan is pending results at this time. Date Marcus Loya DO cc: You Parks MD * Signed - ER Visit Summary Date of Service: 04/17/18 Chief Complaint: Vomiting History of Present Illness: The patient is a 62 F vomiting 2 starting 2 hours ago. No hematemesis. No diarrhea. States short of breath with this. She is mild productive cough for 10 days, no wheezing. No fevers. No chest pains. States no bowel movement 5 days of decreased flatus. History of diabetic gastroparesis. Tried Phenergan with no relief. Similar presentations in the past. No home oxygen. cholecystectomy and appendectomy in the past. Physical Examination: General: Alert and oriented 3, no acute distress HEENT: Normocephalic, atraumatic. Moist mucosa membranes Neck: supple, nontender. Cardiovascular: Regular rate and rhythm, no murmurs Respiratory: Normal breath sounds, symmetric, no distress Abdomen: Soft, nontender, nondistended. Normal bowel sounds. Extremities: Nontender, no edema, pulses intact 4 Neuro: no focal neurological deficits. Test Results: EKG sinus rate of 90, no ST or T-wave changes. WBC 13.2. Hemoglobin 10.2. Any 1.09. Lipase normal. LFTs stable. Abdominal series x-ray: No acute process Emergency Department Course and Treatment: EKG per protocol obtain was normal. Patient no chest pains. Abdominal workup with labs and white count 13.2. Glucose was 292. Patient given IV fluids Reglan and Benadryl. She has no urine symptoms. With her dyspnea and her vomiting, abdominal series obtained shows no acute process. Initially 91%, she is ambulated range from 91 and 96% per nursing. She is feeling better however she still slightly nauseated requests additional nausea medicine initial order for Zofran however lost IV therefore Phenergan IM was given she has Phenergan at home. She will continue oral hydration. She will monitor symptoms follow with her PCP. Signs and symptoms discussed return. All questions were answered. Treatment Plan: [] Disposition: Discharge Impression: 1. Nausea and vomiting 2. Upper respiratory infection This note was generated with [employer] dictation software. It may contain incorrect words, spelling, and punctuation that were not noted in review of the chart prior to signing ED Disposition - Plan for ED Patient: Disposition: Home or Assisted Living Chief Complaint: Nausea/Vomiting Diagnosis: Nausea and vomiting, Upper respiratory infection Instructions: ED Nausea Vomiting, ED URI Viral Referrals: You Parks MD [Primary Care Provider] - 3-5 Days if not improving What to do if you have Problems For any increased pain, shortness of breath, bleeding, nausea or vomiting, chest pain, or any unexpected problems, contact your Primary Care Provider. Call [facility] ([phone]) or report to the closest Emergency Room. Call 911 if necessary. 04/18/18 0349 <Electronically signed by Marcus Mortensen> Date Marcus Mortensen Cosigner Signature (If Indicated): Date CC: You Parks MD CTA CHEST W/WO Observed: 04/18/2018 Status: F Source: [place] CONTRAST 5:10 AM REPOSITORY [facility] Imaging Services [address] [place] [id number] CTA Chest W/WO Contrast MR#: [id number] Acct: [id number] Name: CRYSTAL CRAMER Rep #: [id number] : 1955 F 62 From: Tristan De La Garza MD PCP: You Parks MD Status: REG ER Study: CTA Chest W/WO Contrast Date of Exam: 04/18/18 Exam# [id number] Ordering Dr: Marcus Loya DO STUDY: CTA CHEST REASON FOR EXAM: Female, 62 years old. 10 day history of dyspnea and cough. RADIATION DOSAGE (If Supplied By Facility): CTDIvol = ( 16.72 ) mGy, DLP = ( 642.87 ) mGycm TECHNIQUE: The examination was performed with the intravenous administration of 100 ml of Isovue 370 contrast material. Post-processing of the angiographic images was performed, with multiplanar reformation and 3D reconstruction. Individualized dose optimization techniques were used for this CT. COMPARISON: None. FINDINGS: There are small bilateral benign-appearing axillary lymph nodes. Normal enhancement of the main pulmonary artery and right and left pulmonary arteries. Normal enhancement of the bilateral peripheral pulmonary arteries. There is no demonstrated pulmonary embolism. There is atherosclerotic calcification of the aortic arch with tortuosity. There is no demonstrated aortic dissection. Normal heart and pericardium. Normal mediastinum. Normal hilar regions. Normal visualized trachea and bronchi. The lungs are well expanded. Normal pulmonary parenchyma. Normal pleura. Normal chest wall structures. There are mild degenerative changes of thoracic spine. Normal visualized upper abdomen. CT/CTA Chest W/WO Contrast IMPRESSION: Normal CTA chest examination, without a demonstrated pulmonary embolism or arterial dissection. Electronically Signed: Tristan De La Garza MD at 8:36 EDT Tel [phone], Service support , CC: You Parks MD; Marcus Loya Commercial Glazier: Signed CBC W/DIFF, AUTOMATED Collected: 04/17/2018 Status: F Source: [place] 11:15 PM REPOSITORY TYPE CODE TESTS RESULT OUT OF RANGE REFERENCE UNITS LAB L100.1000 4.4-11.0 K/mm3 High WBC 13.2 LAB L100.1200 4.2-5.4 M/mm3 Normal RBC 4.32 LAB L100.1300 12.0-15.0 g/dl Low HGB 10.2 LAB L100.1400 37-47 % Low HCT 32.9 LAB L100.1500 81-99 fL Low MCV 76.2 LAB L100.1600 27.0-32.0 pg Low MCH 23.6 LAB L100.1700 32-36 g/gl Low MCHC 31.0 LAB L100.1810 11.6-14.6 % High RDW CV 16.3 LAB L100.1820 35.1-43.9 fl High RDW SD 45.1 LAB L100.1900 150-450 K/mm3 Normal PLT 367 LAB L100.2000 6.2-12.0 fl Normal MPV 9.0 LAB L100.2100 47-70 % High NEUT% 77.2 LAB L100.2200 19-41 % Low LY% 14.0 LAB L100.2300 0-10 % Normal MONO% 5.8 LAB L100.2400 0-5 % Normal EO% 2.5 LAB L100.2500 0-1 % Normal BASO% 0.3 LAB L100.2550 0.0-0.9 % Normal IM GRAN % 0.200 Result Comment: IG% - Immature Granulocytes (promyelocytes, myelocytes and metamyelocytes) > 1% indicates that a LEFT SHIFT is Present. LAB L100.2620 2.0-7.7 X10 3/uL High Absolute Neut 10.2 LAB L100.2720 0.83-4.51 X10 3/ul Normal Absolute Lymph 1.84 Performed By: #### L100.0100 #### [facility] [address] [place], [place], [id number] LIVER PROFILE Collected: 04/17/2018 Status: F Source: [place] 11:15 PM REPOSITORY TYPE CODE TESTS RESULT OUT OF RANGE REFERENCE UNITS LAB L501.1500 6.4-8.2 g/dL Normal T PROT 7.7 LAB L501.1800 3.2-5.0 g/dL Normal ALB 3.2 LAB L501.1950 2.2-4.2 g/dL High GLOB 4.5 LAB L501.4100 15-37 U/L High AST 40 LAB L501.4305 45-117 U/L High ALK P 184 LAB L501.4405 13-56 U/L Normal ALT 24 LAB L501.4600 0.20-1.00 mg/dL Normal T BILI 0.80 LAB L501.4700 0.00-0.30 mg/dL Normal D BILI 0.28 Performed By: #### L500.3400, L500.4050 #### [facility] [address] [place], [place], [id number] COMPREHENSIVE METABOLIC Collected: 04/17/2018 Status: F Source: [facility] 11:15 PM REPOSITORY TYPE CODE TESTS RESULT OUT OF RANGE REFERENCE UNITS LAB L501.0100 74-106 mg/dL High GLU 292 Result Comment: Glucose result greater than or equal to 200 mg/dL suggests DIABETES MELLITUS per A.D.A. criteria. Please note revised GLUCOSE reference range effective 2017. LAB L501.1000 7-18 mg/dL Normal BUN 9 LAB L501.1100 0.55-1.02 mg/dL High CREAT,SERUM 1.09 Result Comment: The validity of the calculated GFR AND GFRAA in patients over 70 years has not been determined. Clinical correlation is essential. LAB L501.1110 >60 mL/min Low EST GFR 54 Result Comment: Non- GFR Calc LAB L501.1115 >60 mL/min Normal EST GFR - AA 65 Result Comment: GFR Calc LAB L501.1255 ml/min Normal Estimated CRCL 49.45 LAB L501.1300 10-20 RATIO Low BUN/CRE 8.3 LAB L501.2000 0.9-2. RATIO Low 4 A/G 0.7 LAB L501.2200 8.5-10 mg/dL Normal .1 CA 9.1 LAB L501.5300 136-14 mmol/L Low 5 NA 131 LAB L501.5600 3.5-5. mmol/L Normal 1 K 4.0 LAB L501.5900 98-107 mmol/L Low CL 94 LAB L501.6100 21.0-3 mmol/L Normal 2.0 CO2 28.0 LAB L501.6200 5-15 Normal GAP 9 Performed By: #### L500.3400, L500.4050 #### [facility] [address] [facility] [place], [address] LIPASE Collected: 04/17/2018 Status: F Source: [place] 11:15 PM REPOSITORY TYPE CODE TESTS RESULT OUT OF RANGE REFERENCE UNITS LAB L501.2450 73-393 U/L Normal LIPASE 89 Performed By: #### L501.2450 #### [facility] [address] [place], [address] ACUTE ABDOMEN INC Observed: 04/17/2018 Status: F Source: [place] CHEST 11:13 PM REPOSITORY [facility] Imaging Services [address] [place] [address] Acute Abdomen Inc Chest MR#: [id number] Acct: [id number] Name: CRYSTAL CRAMER Rep #: [id number] : 1955 F 62 From: Ashwini Russo MD PCP: You Parks MD Status: REG ER Study: Acute Abdomen Inc Chest Date of Exam: 04/17/18 Exam# [id number] Ordering Dr: Marcus Loya DO STUDY: X-RAY - ACUTE ABDOMINAL SERIES REASON FOR EXAM: Female, 62 years old. Shortness of breath, vomiting TECHNIQUE: Single view of the chest. Supine, and erect view(s) of the abdomen were obtained. COMPARISON: Chest radiographs dated March 12, 2018; CT abdomen and pelvis dated March 09, 2018 FINDINGS: There is low volume inspiration. There are no focal airspace opacities. There is no demonstrated pleural abnormality. The cardiac silhouette is normal in size. No significant abnormalities are seen in the mediastinum and hilar regions. The pulmonary arteries are unremarkable. There are vascular calcifications in the thoracic aorta. The bowel gas pattern is unremarkable. There is no demonstrated abnormality of the major organs. There are mild degenerative changes in the spine. There is levoscoliosis of the lower spine. RAD/Acute Abdomen Inc Chest IMPRESSION: No acute abnormalities are seen in the chest, abdomen or pelvis. Electronically Signed: Ashwini Russo MD at 0:23 EDT Tel Direct: [phone], Service support , CC: You Parks MD; Marcus Loya Commercial Glazier: Signed 12 LEAD ELECTROCARDIOGRAM Observed: 04/10/2018 Status: F Source: [place] 12:55 PM REPOSITORY [facility] [place] [address] 12 Lead EKG 04/06/18 0945 MR#: [id number] Acct: [id number] Name: CRYSTAL CRAMER Rep #: [id number] : 1955 62 From: Son Ellison MD Attending Dr: Status: DEP ER Ordering Dr: Mansoor Haywood DO Date: 04/06/18 Location: ED Sex: F C Admitted: Test Reason : CP Blood Pressure : / mmHG Vent. Rate : 095 BPM Atrial Rate : 095 BPM P-R Int : 168 ms QRS Dur : 084 ms QT Int : 394 ms P-R-T Axes : 025 -20 047 degrees QTc Int : 495 ms Normal sinus rhythm Leftward axis Poor R wave progression Prolonged QT Abnormal ECG Confirmed by JOSE MANUEL CURRY, SON ([id number]), video effects editor MAIKEL MULLEN ([id number]) on 04/10/2018 12:55:23 PM Referred By: NADIRA Confirmed By:SON ELLISON MD 04/10/18 1255 Date Son Ellison MD CC: Mansoor Haywood DO; You Parks MD Signed EMERGENCY DEPARTMENT Observed: 04/09/2018 Status: F Source: [place] SUMMARY 4:31 PM REPOSITORY [facility] Medical Records Department [address] [place] [address] Emergency Department Summary 04/09/18 1055 MR#: [id number] Acct: [id number] Name: CRYSTAL CRAMER Rep #: [id number] : 1955 62 From: Ray Perez MD PCP: You Praks MD Status: DEP ER - ER Visit Summary Date of Service: 04/09/18 Chief Complaint: Nausea and vomiting History of Present Illness: The patient is a 62 F patient with a history of frequent vomiting episodes. This is been ongoing for 4 years. She states that she needs a intravenous medication treatment for this but her insurance would not approve it. Today the last 5 hours she has had nausea vomiting. No diarrhea. No hematemesis or melena. No abdominal pain. Similar no prior episodes. Physical Examination: Well-appearing older female. Vital signs are stable afebrile. H EENT exam mildly dry mucous membranes. Neck nontender no lymphadenopathy. Lungs clear to auscultation bilaterally. Heart regular rate and rhythm no murmur tender. Normal bowel sounds no peritoneal signs. Nontender. Nondistended. No hernias or masses. No signs of obstruction. Moving all 4 extremities. Neurovascular intact. Back nontender. Skin unremarkable. Neurologic exam awake and alert with no focal motor deficits. Test Results: None Emergency Department Course and Treatment: Patient treated with IV fluids and IV Reglan. Repeat exam the patient is doing well at 1230. Abdomen is benign. Nontender. She does feel better after the IV medication. She feels comfortable being discharged. Treatment Plan: Zofran prescription for home. Disposition: Discharge Impression: Acute and recurrent nausea and vomiting This note was generated with Connectipityation software. It may contain incorrect words, spelling, and punctuation that were not noted in review of the chart prior to signing ED Disposition - Plan for ED Patient: Chief Complaint: Nausea/Vomiting Referrals: You Parks MD [Primary Care Provider] - What to do if you have Problems For any increased pain, shortness of breath, bleeding, nausea or vomiting, chest pain, or any unexpected problems, contact your Primary Care Provider. Call [facility] ([phone]) or report to the closest Emergency Room. Call 911 if necessary. 04/09/18 1631 <Electronically signed by Ray Perez MD> Date Ray Perez MD Cosigner Signature (If Indicated): Date CC: You Parks MD DISCHARGE INSTRUCTION Observed: 04/09/2018 Status: F Source: [place] 4:31 PM REPOSITORY [facility] Medical Records Department [address] [place] [address] Discharge Instruction 04/09/18 1232 MR#: [id number] Acct: [id number] Name: CRYSTAL CRAMER Rep #: [id number] : 1955 62 From: Ray Perez MD PCP: You Parks MD Status: DEP ER ED Disposition - Plan for ED Patient: Disposition: Home or Assisted Living Chief Complaint: Nausea/Vomiting Instructions: ED Nausea Vomiting Prescriptions: Ondansetron [Zofran Odt] 4 mg PO Q4H PRN PRN #10 tab.rapdis PRN Reason: Nausea Referrals: You Parks MD [Primary Care Provider] - Additional Instructions: Zofran as needed for nausea Plenty of fluids and rest. Follow-up with your doctor or return if worse. What to do if you have Problems For any increased pain, shortness of breath, bleeding, nausea or vomiting, chest pain, or any unexpected problems, contact your Primary Care Provider. Call [facility] ([phone]) or report to the closest Emergency Room. Call 911 if necessary. 04/09/18 1631 <Electronically signed by Ray Perez MD> Date Ray Perez MD Cosigner Signature (If Indicated): Date CC: You Parks MD EMERGENCY DEPARTMENT Observed: 04/06/2018 Status: F Source: [place] SUMMARY 4:39 PM REPOSITORY [facility] Medical Records Department [address] [place] [address] Emergency Department Summary 04/06/18 0929 MR#: [id number] Acct: [id number] Name: CRYSTAL CRAMER Rep #: [id number] : 1955 62 From: Mansoor Haywood DO PCP: You Parks MD Status: DEP ER - ER Visit Summary Date of Service: 04/06/18 Chief Complaint: Nausea and vomiting History of Present Illness: The patient is a 62 F who states that 6:00 this morning she began to have nausea and vomiting. This is been an ongoing very chronic issue for the patient. The patient recently was started on haloperidol for the vomiting as well as methadone for chronic pain. The patient has a previous medical history of fibromyalgia, RLS, PAF, gastroparesis, GERD, hypertension, hypercholesterolemia. No other new medications for the patient. No fevers. No change in breathing or chest pain. She does not feel bloated. She has not had any diarrheal stools. She states her stools are loose but that is not abnormal for her. No recent fevers. Vision states that her chest is also sore to touch. Physical Examination: Afebrile noted hypertension 207/93 with a heart rate of 104. Gen: Well-nourished well-developed obese Head: Normocephalic atraumatic Eyes: Perrl EOMI ENT: TMs clear no rhinorrhea moist mucous membranes Neck: Supple no lymphadenopathy no JVD nontender CVS: Regular rate rhythm no murmurs normal S1-S2 Respiratory: No distress clear to auscultation bilaterally chest tender to palpation anteriorly Abdomen: Soft nontender nondistended normal bowel sounds no masses Back: Nontender Extremity: Nontender 1+ edema bilaterally of the lower extremities Skin: Normal color no rash Neuro: alert orientated 3 CN II-XII intact normal strength sensation reflexes gait cerebellar Psych: Normal affect normal mood Test Results: EKG shows a sinus rhythm at a rate of 95 unchanged from prior. Emergency Department Course and Treatment: Patient received a dose of intramuscular Haldol and oral Zofran. She has tolerated p.o. She is not vomiting. She is sleeping on repeat examination but is easily awoken. Noted hypoxemia when she sleeps and she tells me she has been evaluated for sleep apnea. Impression: 1. Nausea vomiting 2. Chest wall pain This note was generated with Instagram dictation software. It may contain incorrect words, spelling, and punctuation that were not noted in review of the chart prior to signing ED Disposition - Plan for ED Patient: Disposition: Home or Assisted Living Chief Complaint: Nausea/Vomiting Instructions: ED Nausea Vomiting Referrals: You Parks MD [Primary Care Provider] - As soon as possible What to do if you have Problems For any increased pain, shortness of breath, bleeding, nausea or vomiting, chest pain, or any unexpected problems, contact your Primary Care Provider. Call [facility] ([phone]) or report to the closest Emergency Room. Call 911 if necessary. 04/06/18 8518 <Electronically signed by Mansoor Haywood DO> Date Mansoor Franklin Signature (If Indicated): Date CC: You Parks MD URGENT CARE VISIT Observed: 03/25/2018 Status: F Source: [place] REPORT 5:55 PM REPOSITORY [facility] [address] [place] [address] [address] [place] [address] OFFICE VISIT Date of Service: 03/24/18 MR#: [id number] Acct: [id number] Name: CRYSTAL CRAMER Rep #: [id number] : 1955 Provider: Dwayne STEVENSON Age/Sex: 62/F Location: [facility] Status: Signed Intake Vital Signs03/24/18 Height 5 ft 5 in Intake Visit Reasons: BRONCHITIS Is patient in pain?: Yes (back/neck) Allergies cyclobenzaprine [From Flexeril] Allergy (Verified 03/24/18 15:08) Rash metformin Allergy (Verified 03/24/18 15:08) Other sulfamethoxazole [From Bactrim] Allergy (Verified 03/24/18 15:08) Other trimethoprim [From Bactrim] Allergy (Verified 03/24/18 15:08) Other Medications allopurinol 100 mg tablet 100 mg PO QDAY 03/24/18 [History Confirmed 03/24/18] aspirin 325 mg tablet 325 mg PO QDAY 03/24/18 [History Confirmed 03/24/18] azithromycin 250 mg tablet See Label Instructions PO .COMPLEX #6 tab 03/24/18 [Rx Confirmed 03/24/18] insulin degludec (U-200) 200 unit/mL (3 mL) subcutaneous pen 1 unit SC ONCE 03/24/18 [History Confirmed 03/24/18] insulin lispro (U-100) 100 unit/mL subcutaneous pen 5 unit SC QACDINNER 03/24/18 [History Confirmed 03/24/18] lamotrigine 100 mg tablet 100 mg PO QDAY 03/24/18 [History Confirmed 03/24/18] levothyroxine 75 mcg capsule 75 mcg PO QDAY 03/24/18 [History Confirmed 03/24/18] montelukast 10 mg tablet 10 mg PO QPM 03/24/18 [History Confirmed 03/24/18] morphine ER 10 mg capsule,extended release pellets 10 mg PO Q24H 03/24/18 [History Confirmed 03/24/18] omeprazole 40 mg capsule,delayed release 40 mg PO QDAY 03/24/18 [History Confirmed 03/24/18] oxycodone-acetaminophen 5 mg-325 mg tablet 1 tab PO ONCE 03/24/18 [History Confirmed 03/24/18] pregabalin 150 mg capsule 150 mg PO BID 03/24/18 [History Confirmed 03/24/18] promethazine 12.5 mg tablet 12.5 mg PO Q6H PRN 03/24/18 [History Confirmed 03/24/18] ropinirole 1 mg tablet 1 mg PO QHS 03/24/18 [History Confirmed 03/24/18] simvastatin 40 mg tablet 40 mg PO QPM 03/24/18 [History Confirmed 03/24/18] valsartan 80 mg tablet 80 mg PO QDAY 03/24/18 [History Confirmed 03/24/18] PFSH Medical History Diabetes (Acute) HTN (hypertension) (Chronic) Surgical History History of cholecystectomy (Acute) History of knee surgery (Acute) Family History Other Diabetes Heart disease Social History Smoking Status: Never smoker alcohol intake: never HPI HPI Details: CRYSTAL CRAMER, is a 62 F who presents to the office today for complaint of ongoing shortness of breath and chest congestion for approximately the past 10 days. Patient states that she was to an ED approximately 6 days ago where she was treated with a breathing treatment and given inhaler which seemed to have made her symptoms better for several days however starting yesterday her shortness of breath returned despite the use of her inhaler. Patient reports a history of pneumonia 2 years ago and states she is concerned that she has at this time. She denies any difficulty breathing or wheezing however does state that she feels short of breath particularly with exertion. She denies any chest pain or irregular heart rates. No fever, chills, sweats. No nausea, vomiting, diarrhea. No other associated symptoms or alleviating/aggravating factors. ROS Const Constitutional: No fever(s), anorexia, chills, abnormal sleep pattern or headache(s) ENT ENT: No post nasal drip, sore throat, ear pain, nasal congestion, nasal discharge or headache(s) Resp Respiratory: Positive for shortness of breath and cough Cough: Yes non-productive; no hemoptysis or wheezing Cardio Cardiology: No irregular heart rhythm or palpitations Gastro GI: No nausea/dyspepsia Neuro Neurology: No headache(s) or behavioral changes Psych Psychiatric: No abnormal sleep pattern, No behavioral changes Aller/Imm Allergy/Immunologic: No wheezing Exam Const General: cooperative, healthy appearing HENMT Head: normal to inspection Ears: hearing grossly normal bilaterally, TM's normal bilaterally, EAC's normal Nose: external nose normal Mouth: oral mucosae normal Throat: posterior oropharynx normal Resp Effort AND Inspection: normal respiratory effort, able to speak in complete sentences, symmetric chest movement Auscultation: Bilateral: Clear to Auscultation Cardio Palpation: normal PMI Rate: regular rate Rhythm: regular rhythm Neuro General: CN's II-XI intact bilaterally, alert Psych Appearance: grossly normal Mental Status: mental status grossly normal Assessment AND Plan Problems 1. Acute bronchitis, unspecified organism J20.9 Status Acute Plan Chest x-ray read and interpreted by myself finding no acute cardiopulmonary dysfunction. Awaiting radiology interpretation at time of dictation. Azithromycin as prescribed today. Encouraged to get plenty of rest, drink lots of clear liquids, and use Tylenol or Ibuprofen (unless contraindicated) for fever and comfort. Patient also educated on other symptomatic management techniques. To be seen in 7-10 days by her PCP if no improvement; sooner if worsening of symptoms. Advised of potential red flags and when appropriate report to the ED. Patient verbalized understanding of all the above. Orders Orders: Medications New: Coding Level of Care Code Off vis,new,level 4 Diagnoses Acute bronchitis, unspecified organism J20.9 Bronchitis organism: unspecified organism 03/25/18 1755 <Electronically signed by Dwayne STEVENSON> Date Dwayne STEVENSON Cosigner Signature: Date (if applicable) CC: CHEST PA AND LATERAL Observed: 03/24/2018 Status: F Source: [place] 3:20 PM [facility] REPOSITORY [facility] Imaging Services [address] [place] [address] Chest PA and Lateral MR#: [id number] Acct: [id number] Name: CRYSTAL CRAMER Rep #: [id number] : 1955 F 62 From: William Gupta DO PCP: You Parks MD Status: REG CLI Study: Chest PA and Lateral Date of Exam: 03/24/18 Exam# [id number] Ordering Dr: Dwayne Trivedi STUDY: X-RAY CHEST REASON FOR EXAM: Female, 62 years old. Shortness of breath. TECHNIQUE: PA and lateral views of the chest. COMPARISON: None. FINDINGS: The lungs are clear and expanded. There is no demonstrated pleural abnormality. Normal size heart. Normal mediastinum and judith. Normal visualized pulmonary arteries. Normal visualized aortic arch and descending thoracic aorta. There are mild degenerative changes of the visualized thoracic spine. Normal visualized ribs, clavicles, and shoulders. There is no demonstrated abnormality of the visualized soft tissue structures of the upper abdomen. RAD/Chest PA and Lateral IMPRESSION: No acute cardiopulmonary disease. Electronically Signed: William Gupta DO at 18:43 EDT Tel [phone], Service support , CC: Dwayne STEVENSON; You Parks MD Commercial Glazier: Signed 12 LEAD ELECTROCARDIOGRAM Observed: 03/14/2018 Status: F Source: [place] 1:28 PM [facility] REPOSITORY [facility] Cardiovascular Services [address] [place] [address] 12 Lead EKG 03/12/18 1757 MR#: [id number] Acct: [id number] Name: CRYSTAL CRAMER Rep #: [id number] : 1955 62 From: Son Ellison MD Attending Dr: Status: DEP ER Ordering Dr: Ashwini Monson MD Date: 03/12/18 Location: ED Sex: F C Admitted: Test Reason : Blood Pressure : / mmHG Vent. Rate : 087 BPM Atrial Rate : 087 BPM P-R Int : 148 ms QRS Dur : 086 ms QT Int : 394 ms P-R-T Axes : 014 -19 047 degrees QTc Int : 474 ms Normal sinus rhythm Leftward axis Poor R wave progression Confirmed by JOSE MANUEL CURRY, SON ([id number]), video effects editor MAIKEL MULLEN ([id number]) on 03/14/2018 1:28:23 PM Referred By: SIMI Confirmed By:SON ELLISON MD 03/14/18 1328 Date Son Ellison MD CC: Ashwini Monson MD; You Parks MD Signed EMERGENCY DEPARTMENT Observed: 03/13/2018 Status: F Source: [place] SUMMARY 1:05 AM REPOSITORY [facility] Medical Records Department [address] [place] [address] Emergency Department Summary 03/12/182121 MR#: [id number] Acct: [id number] Name: CRYSTAL CRAMER Rep #: [id number] : 1955 62 From: Ashwini Monson MD PCP: You Parks MD Status: DEP ER - ER Visit Summary Date of Service: 03/12/18 Chief Complaint: Dyspnea History of Present Illness: The patient is a 62 F who was discharged in the hospital yesterday after admission for gastroenteritis. Patient states she was on oxygen at night and was told she would need a sleep study as an outpatient. Patient noted more shortness of breath today, worse when she lies flat. She denies chest pain. Past history significant for prior stroke, VT, diabetes, hypertension, high cholesterol, fibromyalgia, paroxysmal A. fib, gastroparesis, reflux disease. She does not have known history of congestive heart failure. Physical Examination: Vital signs significant for blood pressure of 192/92, temperature 97.8, heart rate 97, respiratory rate 24, pulse ox 95% on room air. Head and neck examination is unremarkable. Heart is regular rate and rhythm. Lung sounds with scant expiratory wheezes. There is mild crackles at the bases, left greater than right. Abdomen is soft nontender. Hypoactive bowel sounds noted throughout. Lower external examination does not reveal significant edema. Test Results: EKG is sinus at 87 with no sign of acute ischemia. Two-view chest x-ray read by radiology shows diminished inspiratory effort. No acute disease noted. CBC significant for hemoglobin 10.8. Chemistry studies unremarkable. BNP is normal. Emergency Department Course and Treatment: Patient is given a DuoNeb treatment along with Zofran. On repeat evaluation she reported no significant improvement when just lying in bed. She is given an additional albuterol treatment. She was ambulated in the bowen with pulse ox and sats remained between 95 and 97%. Patient states that she does feel slightly improved after getting the breathing treatments. Should be sent home with an albuterol inhaler. I did encourage her to call her doctor tomorrow to set up the outpatient sleep study. Treatment Plan: [] Disposition: Discharge Impression: Dyspnea This note was generated with Instagram dictation software. It may contain incorrect words, spelling, and punctuation that were not noted in review of the chart prior to signing ED Disposition - Plan for ED Patient: Disposition: Home or Assisted Living Chief Complaint: Shortness of Breath Instructions: ED Dyspnea Shortness of Breath Referrals: You Parks MD [Primary Care Provider] - As soon as possible What to do if you have Problems For any increased pain, shortness of breath, bleeding, nausea or vomiting, chest pain, or any unexpected problems, contact your Primary Care Provider. Call [facility] ([phone]) or report to the closest Emergency Room. Call 911 if necessary. 03/13/18 0105 <Electronically signed by Ashwini Monson MD> Date Ashwini Monson MD Cosigner Signature (If Indicated): Date CC: You Parks MD DISCHARGE INSTRUCTION Observed: 03/12/2018 Status: F Source: MARCUS 9:23 PM REPOSITORY [facility] Medical Records Department [address] [place] [address] Discharge Instruction 03/12/182121 MR#: [id number] Acct: [id number] Name: CRYSTAL CRAMER Rep #: [id number] : 1955 62 From: Ashwini Monson MD PCP: You Parks MD Status: REG ER ED Disposition - Plan for ED Patient: Disposition: Home or Assisted Living Chief Complaint: Shortness of Breath Instructions: ED Dyspnea Shortness of Breath Referrals: You Parks MD [Primary Care Provider] - As soon as possible What to do if you have Problems For any increased pain, shortness of breath, bleeding, nausea or vomiting, chest pain, or any unexpected problems, contact your Primary Care Provider. Call [facility] ([phone]) or report to the closest Emergency Room. Call 911 if necessary. 03/12/182122 <Electronically signed by Ashwini Monson MD> Date Ashwini Monson MD Cosigner Signature (If Indicated): Date CC: You Parks MD CBC W/DIFF, AUTOMATED Collected: 03/12/2018 Status: F Source: MARCUS 6:32 PM REPOSITORY TYPE CODE TESTS RESULT OUT OF RANGE REFERENCE UNITS LAB L100.1000 4.4-11.0 K/mm3 Normal WBC 10.8 LAB L100.1200 4.2-5.4 M/mm3 Normal RBC 4.50 LAB L100.1300 12.0-15.0 g/dl Low HGB 10.8 LAB L100.1400 37-47 % Low HCT 35.6 LAB L100.1500 81-99 fL Low MCV 79.1 LAB L100.1600 27.0-32.0 pg Low MCH 24.0 LAB L100.1700 32-36 g/gl Low MCHC 30.3 LAB L100.1810 11.6-14.6 % High RDW CV 15.6 LAB L100.1820 35.1-43.9 fl High RDW SD 44.7 LAB L100.1900 150-450 K/mm3 Normal PLT 314 LAB L100.2000 6.2-12.0 fl Normal MPV 9.1 LAB L100.2100 47-70 % High NEUT% 71.8 LAB L100.2200 19-41 % Low LY% 16.9 LAB L100.2300 0-10 % Normal MONO% 7.7 LAB L100.2400 0-5 % Normal EO% 3.2 LAB L100.2500 0-1 % Normal BASO% 0.2 LAB L100.2550 0.0-0.9 % Normal IM GRAN % 0.200 Result Comment: IG% - Immature Granulocytes (promyelocytes, myelocytes and metamyelocytes) > 1% indicates that a LEFT SHIFT is Present. LAB L100.2620 2.0-7.7 X10 3/uL High Absolute Neut 7.8 LAB L100.2720 0.83-4.51 X10 3/ul Normal Absolute Lymph 1.82 Performed By: #### L100.0100 #### [facility] [address] [place], [address] BASIC METABOLIC Collected: 03/12/2018 Status: F Source: [place] PROFILE ([facility]) 6:32 PM REPOSITORY TYPE CODE TESTS RESULT OUT OF RANGE REFERENCE UNITS LAB L501.0100 74-106 mg/dL High GLU 229 Result Comment: Glucose result greater than or equal to 200 mg/dL suggests DIABETES MELLITUS per A.D.A. criteria. Please note revised GLUCOSE reference range effective 2017. LAB L501.1000 7-18 mg/dL Low BUN 6 LAB L501.1100 0.55-1.02 mg/dL Normal CREAT,SERUM 1.00 Result Comment: The validity of the calculated GFR AND GFRAA in patients over 70 years has not been determined. Clinical correlation is essential. LAB L501.1110 >60 mL/min Low EST GFR 59 Result Comment: Non- GFR Calc LAB L501.1115 >60 mL/min Normal EST GFR - AA 72 Result Comment: GFR Calc LAB L501.1255 ml/min Normal Estimated CRCL 53.91 LAB L501.1300 10-20 RATIO Low BUN/CRE 6.0 LAB L501.2200 8.5-10 mg/dL Normal .1 CA 9.2 LAB L501.5300 136-14 mmol/L Normal 5 NA 137 LAB L501.5600 3.5-5. mmol/L Normal 1 K 4.0 LAB L501.5900 98-107 mmol/L Normal CL 101 LAB L501.6100 21.0-3 mmol/L Normal 2.0 CO2 29.0 LAB L501.6200 5-15 Normal GAP 7 Performed By: #### L500.2500 #### [facility] [address] [facility] [place], [address] BNP,B-TYPE NATRIURETIC Collected: 03/12/2018 Status: F Source: [place] PEPTIDE 6:32 PM REPOSITORY TYPE CODE TESTS RESULT OUT OF RANGE REFERENCE UNITS LAB L503.6620 0-100 pg/mL Normal B-TYPE 51.5 LANDON PEP Performed By: #### L503.6620 #### [facility] [address] [facility] [place], [address] CHEST PA AND LATERAL Observed: 03/12/2018 Status: F Source: [place] 5:45 PM REPOSITORY [facility] Imaging Services [address] [place] [address] Chest PA and Lateral MR#: [id number] Acct: [id number] Name: CRYSTAL CRAMER Rep #: [id number] : 1955 F 62 From: Ray Joy MD PCP: You Praks MD Status: REG ER Study: Chest PA and Lateral Date of Exam: 03/12/18 Exam# [id number] Ordering Dr: Ashwini Monson MD STUDY: X-RAY CHEST REASON FOR EXAM: Female, 62 years old. Short of breath TECHNIQUE: PA and lateral COMPARISON: March 10, 2018 FINDINGS: Diminished inspiratory effort is seen however the lungs are clear of focal infiltration.. There is no demonstrated pleural abnormality. Normal size heart. Normal mediastinum and judith. Normal visualized pulmonary arteries. Normal visualized aortic arch and descending thoracic aorta. Dorsal spine demonstrates mild spondylosis Normal visualized ribs, clavicles, and shoulders. There is no demonstrated abnormality of the visualized soft tissue structures of the upper abdomen. RAD/Chest PA and Lateral IMPRESSION: Diminished inspiratory effort. No acute disease Electronically Signed: Ray Joy MD at 19:03 EDT , Service support , CC: Ashwini Monson MD; You Parks MD Commercial Glazier: Signed DISCHARGE SUMMARY Observed: 03/11/2018 Status: F Source: [place] 3:15 PM REPOSITORY [facility] Medical Records Department [address] [place] [address] Discharge Summary 03/11/18 1134 MR#: [id number] Acct: [id number] Name: CRYSTAL CRAMER Rep #: [id number] : 1955 62 From: Qian Guerrero MD PCP: You Parks MD Status: DIS IN Y Location: MS3 [id number] Discharge Date and Diagnosis Date of Admission: 03/09/18 Date of Discharge: 03/11/18 - Primary Discharge Diagnosis Sepsis secondary to acute gastroenteritis Acute gastroenteritis, unclear etiology Leukocytosis Acute kidney injury - Secondary Discharge Diagnosis Chronic Problems (Last Reviewed 03/10/18 @ 03:57 by Jose Oseguera MD) Fibromyalgia (Chronic) Diabetic gastroparesis (Chronic) Restless leg (Chronic) Migraine headache (Chronic) Weakness of both lower extremities (Chronic) GERD (gastroesophageal reflux disease) (Chronic) Seizure disorder (Chronic) Chronic anticoagulation (Chronic) Hyperuricemia (Chronic) Paroxysmal atrial fibrillation (Chronic) Chronic pain syndrome (Chronic) DM2 (diabetes mellitus, type 2) (Chronic) History of CVA (cerebrovascular accident) (Chronic) Takotsubo cardiomyopathy (Chronic) Iron deficiency anemia (Chronic) Diverticulosis (Chronic) Diverticulitis (Chronic) Depression (Chronic) Morbid obesity with BMI of 40.0-44.9, adult (Chronic) HLD (hyperlipidemia) (Chronic) Benign essential HTN (Chronic) Hospital Course and Treatment Imaging Results: Clinical Impression(s) from Imaging Studies Abdomen/Pelvis CT 03/09/18 16:08 IMPRESSION: No acute abnormality is demonstrated. Electronically Signed: Lucia Medley MD at 17:06 EDT cf, Service support , Chest X-Ray 03/09/18 18:26 IMPRESSION: There are no acute findings. Electronically Signed: Ok Pandey MD at 18:58 EDT , Service support , Chest X-Ray 03/10/18 03:45 IMPRESSION: Normal x-ray examination of the chest. Electronically Signed: Bita Hunter MD at 13:11 EDT Tel , Service support , None Operations: None, - - EGD Procedures: None Summary of Care Provided: 62-year-old female with past medical history of type 2 DM, poorly controlled with diabetic gastroparesis, seizure disorder, GERD, PAF comes in with complaints of nausea vomiting as well as diarrhea. She was found to have a fever of 102.8F in the ED, white cell count was elevated at 19.1 with neutrophilia. Stool lactoferrin was positive. Patient however did not have any more diarrhea on the floors. Enteric panel ordered was not collected. The cultures was pending at time of discharge. Urine cultures were negative. 1. Sepsis secondary to Acute gastroenteritis, POA, managed on IV Zosyn and discharged on Augmentin to complete 1 week of antibiotics. 2. Nausea and vomiting secondary to diabetic gastroparesis, promethazine and Lyrica, improved. 3. Type 2 diabetes, uncontrolled, on 200 units of glargine daily, customized insulin sliding scale, referred to endocrinology. 4. Restless leg syndrome, to new home medication 5. Paroxysmal atrial fibrillation, in normal sinus rhythm Discharge Diet: Low fat/ Low Cholesterol, 2000 mg Sodium Diet Discharge Activity: Return to Normal Activity Home Medications: Medications to take at Discharge Allopurinol [Zyloprim] 100 mg PO DAILYCM 05/07/16 Aspirin [Aspirin, Baby] 81 mg PO DAILY 05/07/16 Montelukast [Singulair] 10 mg PO DAILY 05/07/16 Omeprazole [Prilosec] 40 mg PO DAILY 05/07/16 Ropinirole HCl [Requip] 1 mg PO QHS 05/07/16 Simvastatin [Zocor] 40 mg PO QHS 05/07/16 Insulin Lispro [Humalog Kwikpen] 20 - 40 unit SQ TIDCM 01/10/17 Levothyroxine [Synthroid] 75 mcg PO DAILY 02/25/17 Pregabalin [Lyrica] 150 mg PO BID 02/25/17 Insulin Degludec [Tresiba Flextouch U-100] 200 unit SQ DAILY 04/02/17 Hydrocodone/Acetaminophen [Hydrocodone-Acetamin 5-325 mg] 1 each PO Q6H PRN PRN 06/01/17 morphine SR tablet [Ms Contin] 15 mg PO BID 06/01/17 Lamotrigine 100 mg PO BID 12/05/17 Valsartan 80 mg PO DAILY 12/05/17 proMETHazine tablet [Phenergan tablet] 25 mg PO TID PRN PRN 12/05/17 Metoclopramide [Reglan] 10 mg PO 4X/DAY PRN #20 tab 01/12/18 Ondansetron [Zofran Odt] 4 mg PO Q8H PRN PRN #10 tablet 02/26/18 Amox/Clavulanate Tablet [Augmentin Tablet] 875 mg PO Q12H #8 tab 03/11/18 Following Prescrptions Were Given to Patient: Amox/Clavulanate Tablet [Augmentin Tablet] 875 mg PO Q12H #8 tab Primary Care Physician: You Parks MD [Primary Care Provider] - Please follow up with your Primary Care Physician in: within 1-2 weeks of discharge When: Endocrinology with 1-2 weeks Disposition: Home Minutes spent on discharge:: 40 Patient Condition:: Stable Medical Necessity - Tobacco Use Smoking Status: Never smoker Tobacco Use: Non-smoker Meaningful Use Info Meaningful Use Diagnoses (Choose all that apply): None applicable Code Visit Inpatient E AND M: 33267 Disch Hosp 03/11/18 1515 <Electronically signed by Qian Guerrero MD> Date Qian Guerrero MD Cosigner Signature (if applicable): Date CC: Qian Guerrero MD; You Parks MD Signed BEDSIDE GLUCOSE Collected: 03/11/2018 Status: F Source: [place] 11:53 [facility] REPOSITORY TYPE CODE TESTS RESULT OUT OF REFERENCE UNITS RANGE LAB L501.080 70-110 mg/dL High BEDSIDE GLU 224 Result Comment: MANAGEMENT OF PATIENT CARE PER NURSING PROTOCOL Performed By: #### L501.080 #### [facility] Point of Care [address] [facility] [place] [address] DISCHARGE INSTRUCTION Observed: 03/11/2018 Status: F Source: [place] 11:33 [facility] REPOSITORY [facility] Medical Records Department [address] [place] [address] Instructions for Home/Discharge Instructions 03/11/18 1127 MR#: [id number] Acct: [id number] Name: CRYSTAL CRAMER Rep #: [id number] : 1955 62 From: Qian Guerrero MD PCP: You Parks MD Status: ADM IN - Discharge Diagnoses Reason(s) for Visit for Discharge Instructions: Fever, nausea, vomiting You will use the following diet at home:: Calorie/Carbohydrate Controlled (specify 1200, 1400, etc), Cardiac Your food should be the consistency of: Regular Your liquids should be the consistency of: Regular/Thin Discharge Activity: Return to Normal Activity Additional Instructions: You should complete your antibiotics. Follow-up with your primary care doctor for blood culture results. You are referred to an water technician. Continue to monitor your blood sugars. Allergies/Adverse Reactions: Allergies ciprofloxacin [From Cipro] Allergy (Verified 03/09/18 14:21) Shortness of breath ciprofloxacin HCl [From Cipro] Allergy (Verified 03/09/18 14:21) Shortness of breath cyclobenzaprine HCl [From Flexeril] Allergy (Verified 03/09/18 14:21) Rash ketorolac tromethamine [From Toradol] Allergy (Verified 03/09/18 14:21) Chest tightness sulfamethoxazole [From Bactrim] Allergy (Verified 03/09/18 14:21) Itching trimethoprim [From Bactrim] Allergy (Verified 03/09/18 14:21) Itching metformin Adverse Reaction (Verified 03/09/18 14:21) Other headache valacyclovir HCl [From Valtrex] Adverse Reaction (Verified 03/09/18 14:21) Other Medications to take at Discharge Allopurinol [Zyloprim] 100 mg PO DAILYCM 05/07/16 Aspirin [Aspirin, Baby] 81 mg PO DAILY 05/07/16 Montelukast [Singulair] 10 mg PO DAILY 05/07/16 Omeprazole [Prilosec] 40 mg PO DAILY 05/07/16 Ropinirole HCl [Requip] 1 mg PO QHS 05/07/16 Simvastatin [Zocor] 40 mg PO QHS 05/07/16 Insulin Lispro [Humalog Kwikpen] 20 - 40 unit SQ TIDCM 01/10/17 Levothyroxine [Synthroid] 75 mcg PO DAILY 02/25/17 Pregabalin [Lyrica] 150 mg PO BID 02/25/17 Insulin Degludec [Tresiba Flextouch U-100] 200 unit SQ DAILY 04/02/17 Hydrocodone/Acetaminophen [Hydrocodone-Acetamin 5-325 mg] 1 each PO Q6H PRN PRN 06/01/17 morphine SR tablet [Ms Contin] 15 mg PO BID 06/01/17 Lamotrigine 100 mg PO BID 12/05/17 Valsartan 80 mg PO DAILY 12/05/17 proMETHazine tablet [Phenergan tablet] 25 mg PO TID PRN PRN 12/05/17 Metoclopramide [Reglan] 10 mg PO 4X/DAY PRN #20 tab 01/12/18 Ondansetron [Zofran Odt] 4 mg PO Q8H PRN PRN #10 tablet 02/26/18 Amox/Clavulanate Tablet [Augmentin Tablet] 875 mg PO Q12H #8 tab 03/11/18 The following prescriptions were given: Amox/Clavulanate Tablet [Augmentin Tablet] 875 mg PO Q12H #8 tab Orders to be completed after discharge: CBC W/Diff, Automated Time Frame: 1 Week, Location: Laboratory Primary Care Physician: You Parks MD [Primary Care Provider] - Please follow up with your Primary Care Physician in: within 1-2 weeks of discharge Test Results: Test results from this visit will be discussed in further detail at your follow-up appointment, if applicable. When: Endocrinology with 1-2 weeks Proposed Discharge Date: 03/11/18 03/11/18 1133 <Electronically signed by Qian Guerrero MD> Date Qian Guerrero MD CC: You Parks MD BEDSIDE GLUCOSE Collected: 03/11/2018 Status: F Source: MARCUS 7:48 AM REPOSITORY TYPE CODE TESTS RESULT OUT OF RANGE REFERENCE UNITS LAB L501.080 70-110 mg/dL Normal BEDSIDE GLU 97 Result Comment: MANAGEMENT OF PATIENT CARE PER NURSING PROTOCOL Performed By: #### L501.080 #### [facility] Point of Care [facility] [address] [place], [place] [id number] BASIC METABOLIC Collected: 03/11/2018 Status: F Source: MARCUS PROFILE (BMP) 5:35 AM REPOSITORY TYPE CODE TESTS RESULT OUT OF RANGE REFERENCE UNITS LAB L501.0100 74-106 mg/dL High GLU 117 Result Comment: Fasting Glucose result from 100 to 125 mg/dL suggests IMPAIRED HOMEOSTASIS per A.D.A. criteria. Please note revised GLUCOSE reference range effective 2017. LAB L501.1000 7-18 mg/dL Normal BUN 10 LAB L501.1100 0.55-1.02 mg/dL High CREAT,SERUM 1.07 Result Comment: The validity of the calculated GFR AND GFRAA in patients over 70 years has not been determined. Clinical correlation is essential. LAB L501.1110 >60 mL/min Low EST GFR 55 Result Comment: Non- GFR Calc LAB L501.1115 >60 mL/min Normal EST GFR - AA 67 Result Comment: GFR Calc LAB L501.1255 ml/min Normal Estimated CRCL 50.38 LAB L501.1300 10-20 RATIO Low BUN/CRE 9.3 LAB L501.2200 8.5-10 mg/dL Low .1 CA 8.1 LAB L501.5300 136-14 mmol/L Normal 5 NA 141 LAB L501.5600 3.5-5. mmol/L Normal 1 K 3.8 LAB L501.5900 98-107 mmol/L Normal CL 105 LAB L501.6100 21.0-3 mmol/L Normal 2.0 CO2 29.0 LAB L501.6200 5-15 Normal GAP 7 Performed By: #### L500.2500 #### [facility] [address] [place], [address] CBC W/DIFF, AUTOMATED Collected: 03/11/2018 Status: F Source: [place] 5:35 AM REPOSITORY TYPE CODE TESTS RESULT OUT OF RANGE REFERENCE UNITS LAB L100.1000 4.4-11.0 K/mm3 High WBC 12.1 LAB L100.1200 4.2-5.4 M/mm3 Low RBC 4.01 LAB L100.1300 12.0-15.0 g/dl Low HGB 9.7 LAB L100.1400 37-47 % Low HCT 31.9 LAB L100.1500 81-99 fL Low MCV 79.6 LAB L100.1600 27.0-32.0 pg Low MCH 24.2 LAB L100.1700 32-36 g/gl Low MCHC 30.4 LAB L100.1810 11.6-14.6 % High RDW CV 15.8 LAB L100.1820 35.1-43.9 fl High RDW SD 45.9 LAB L100.1900 150-450 K/mm3 Normal PLT 311 LAB L100.2000 6.2-12.0 fl Normal MPV 9.3 LAB L100.2100 47-70 % Normal NEUT% 63.0 LAB L100.2200 19-41 % Normal LY% 22.7 LAB L100.2300 0-10 % Normal MONO% 8.8 LAB L100.2400 0-5 % Normal EO% 5.0 LAB L100.2500 0-1 % Normal BASO% 0.3 LAB L100.2550 0.0-0.9 % Normal IM GRAN % 0.200 Result Comment: IG% - Immature Granulocytes (promyelocytes, myelocytes and metamyelocytes) > 1% indicates that a LEFT SHIFT is Present. LAB L100.2620 2.0-7.7 X10 3/uL Normal Absolute Neut 7.6 LAB L100.2720 0.83-4.51 X10 3/ul Normal Absolute Lymph 2.73 Performed By: #### L100.0100 #### [facility] [address] [place], [place], [id number] BEDSIDE GLUCOSE Collected: 03/10/2018 Status: F Source: MARCUS 9:39 PM REPOSITORY TYPE CODE TESTS RESULT OUT OF REFERENCE UNITS RANGE LAB L501.080 70-110 mg/dL High BEDSIDE GLU 135 Result Comment: MANAGEMENT OF PATIENT CARE PER NURSING PROTOCOL Performed By: #### L501.080 #### [facility] Point of Care [address] [place] [address] BEDSIDE GLUCOSE Collected: 03/10/2018 Status: F Source: MARCUS 4:23 PM REPOSITORY TYPE CODE TESTS RESULT OUT OF REFERENCE UNITS RANGE LAB L501.080 70-110 mg/dL High BEDSIDE GLU 303 Result Comment: MANAGEMENT OF PATIENT CARE PER NURSING PROTOCOL Performed By: #### L501.080 #### [facility] Point of Care [address] [place] [address] BEDSIDE GLUCOSE Collected: 03/10/2018 Status: F Source: MARCUS 11:20 AM REPOSITORY TYPE CODE TESTS RESULT OUT OF REFERENCE UNITS RANGE LAB L501.080 70-110 mg/dL High BEDSIDE GLU 299 Result Comment: MANAGEMENT OF PATIENT CARE PER NURSING PROTOCOL Performed By: #### L501.080 #### [facility] Point of Care [address] [place] [address] BASIC METABOLIC Collected: 03/10/2018 Status: F Source: MARCUS PROFILE (BMP) 5:10 AM REPOSITORY Order Comment: 'TROP' Serial specimen #1, #2 or #3: 3 TYPE CODE TESTS RESULT OUT OF RANGE REFERENCE UNITS LAB L501.0100 74-106 mg/dL High GLU 275 Result Comment: Glucose result greater than or equal to 200 mg/dL suggests DIABETES MELLITUS per A.D.A. criteria. Please note revised GLUCOSE reference range effective 2017. LAB L501.1000 7-18 mg/dL Normal BUN 10 LAB L501.1100 0.55-1.02 mg/dL High CREAT,SERUM 1.05 Result Comment: The validity of the calculated GFR AND GFRAA in patients over 70 years has not been determined. Clinical correlation is essential. LAB L501.1110 >60 mL/min Low EST GFR 56 Result Comment: Non- GFR Calc LAB L501.1115 >60 mL/min Normal EST GFR - AA 68 Result Comment: GFR Calc LAB L501.1255 ml/min Normal Estimated CRCL 51.34 LAB L501.1300 10-20 RATIO Low BUN/CRE 9.5 LAB L501.2200 8.5-10 mg/dL Low .1 CA 8.3 LAB L501.5300 136-14 mmol/L Normal 5 NA 140 LAB L501.5600 3.5-5. mmol/L Normal 1 K 3.9 LAB L501.5900 98-107 mmol/L Normal CL 103 LAB L501.6100 21.0-3 mmol/L Normal 2.0 CO2 28.0 LAB L501.6200 5-15 Normal GAP 9 Performed By: #### L500.2500, L501.4010 #### [facility] [address] [place], [address] TROPONIN-I Collected: 03/10/2018 Status: F Source: MARCUS 5:10 AM REPOSITORY Order Comment: 'TROP' Serial specimen #1, #2 or #3: 3 TYPE CODE TESTS RESULT OUT OF RANGE REFERENCE UNITS LAB L501.4010 <0.045 ng/mL Normal < 0.015 TROPONIN-I Result Comment: TROPONIN-I EXPECTED VALUES <0.045 Negative 0.045 - 0.590 Consistent with Cardiac Damage > OR = 0.600 Critical Value Not every elevated troponin is indicative of VT. These values should be used with clinical judgement in examining the patient's clinical picture for diagnosis. To establish a diagnosis of VT versus myocardial injury, there must be a demonstrated rise and/or fall in the troponin values, in addition to ischemic symptoms, EKG changes, new regional wall motion abnormality, and/or angiographical evidence. PLEASE NOTE: REFERENCE RANGES EDITED 17 Performed By: #### L500.2500, L501.4010 #### [facility], [address] CBC W/DIFF, AUTOMATED Collected: 03/10/2018 Status: F Source: MARCUS 5:10 AM REPOSITORY TYPE CODE TESTS RESULT OUT OF RANGE REFERENCE UNITS LAB L100.1000 4.4-11.0 K/mm3 High WBC 15.2 LAB L100.1200 4.2-5.4 M/mm3 Low RBC 4.17 LAB L100.1300 12.0-15.0 g/dl Low HGB 9.9 LAB L100.1400 37-47 % Low HCT 33.0 LAB L100.1500 81-99 fL Low MCV 79.1 LAB L100.1600 27.0-32.0 pg Low MCH 23.7 LAB L100.1700 32-36 g/gl Low MCHC 30.0 LAB L100.1810 11.6-14.6 % High RDW CV 15.6 LAB L100.1820 35.1-43.9 fl High RDW SD 45.2 LAB L100.1900 150-450 K/mm3 Normal PLT 293 LAB L100.2000 6.2-12.0 fl Normal MPV 9.0 LAB L100.2100 47-70 % High NEUT% 76.4 LAB L100.2200 19-41 % Low LY% 14.5 LAB L100.2300 0-10 % Normal MONO% 7.3 LAB L100.2400 0-5 % Normal EO% 1.5 LAB L100.2500 0-1 % Normal BASO% 0.2 LAB L100.2550 0.0-0.9 % Normal IM GRAN % 0.100 Result Comment: IG% - Immature Granulocytes (promyelocytes, myelocytes and metamyelocytes) > 1% indicates that a LEFT SHIFT is Present. LAB L100.2620 2.0-7.7 X10 3/uL High Absolute Neut 11.6 LAB L100.2720 0.83-4.51 X10 3/ul Normal Absolute Lymph 2.19 Performed By: #### L100.0100 #### [facility] [address] [facility] [place], [address] HISTORY AND PHYSICAL Observed: 03/10/2018 Status: F Source: [place] EXAM 4:07 AM REPOSITORY [facility] Medical Records Department [address] [place] [address] History and Physical 03/09/182102 MR#: [id number] Acct: [id number] Name: CRYSTAL CRAMER Rep #: [id number] : 1955 62 From: Jose Oseguera MD PCP: You Parks MD Status: ADM SIMONA Y Location: [place] [address] Problem List (1) Fibromyalgia Status: Chronic (2) Diabetic gastroparesis Status: Chronic (3) Restless leg Status: Chronic (4) Migraine headache Status: Chronic Qualifiers: (5) Chronic generalized abdominal pain Status: Acute (6) Intractable vomiting with nausea Status: Acute (7) Knee effusion, right Status: Resolved (8) Iron deficiency anemia Status: Chronic Qualifiers: (9) Diverticulosis Status: Chronic Qualifiers: (10) Diverticulitis Status: Chronic (11) Depression Status: Chronic Qualifiers: (12) Morbid obesity with BMI of 40.0-44.9, adult Status: Chronic (13) HLD (hyperlipidemia) Status: Chronic Qualifiers: (14) Benign essential HTN Status: Chronic History of Present Illness Date of Admission: 03/09/18 Chief Complaint: Sepsis with unknown source The patient is a 62 year old female w/ h/o fibromyalgia, DMII, diabetic gastroparesis, restless leg, GERD, PAF, and seizure admitted for sepsis with unknown source. She has multiple ED visits for n/v and workup has been negative. However, in the past few days, she noted she has been more nauseous than usual. Her nausea is constant. She also has diarrhea. She has 3 episodes of water diarrhea but she takes reglan on a regular basis for her diabetic gastroparesis. She has diffuse cramping abdominal pain. Pain is similar to her past episode of pain. Pain does not radiate. Pain is episodic. Nothing makes it better or worse. Pain is not associated with any other symptoms. Past Medical History Past Medical History (Chronic Problems): Chronic Problems (Last Reviewed 03/10/18 @ 03:57 by Jose Oseguera MD) Fibromyalgia (Chronic) Diabetic gastroparesis (Chronic) Restless leg (Chronic) Migraine headache (Chronic) Weakness of both lower extremities (Chronic) GERD (gastroesophageal reflux disease) (Chronic) Seizure disorder (Chronic) Chronic anticoagulation (Chronic) Hyperuricemia (Chronic) Paroxysmal atrial fibrillation (Chronic) Chronic pain syndrome (Chronic) DM2 (diabetes mellitus, type 2) (Chronic) History of CVA (cerebrovascular accident) (Chronic) Takotsubo cardiomyopathy (Chronic) Iron deficiency anemia (Chronic) Diverticulosis (Chronic) Diverticulitis (Chronic) Depression (Chronic) Morbid obesity with BMI of 40.0-44.9, adult (Chronic) HLD (hyperlipidemia) (Chronic) Benign essential HTN (Chronic) Medical History: Medical History (Last Reviewed 03/10/18 @ 03:57 by Jose Oseguera MD) Diabetes mellitus E11.9 Diverticulitis K57.92 2 para 2 Z78.9 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 HTN (hypertension) I10 Allergies ciprofloxacin [From Cipro] Allergy (Verified 03/09/18 14:21) Shortness of breath ciprofloxacin HCl [From Cipro] Allergy (Verified 03/09/18 14:21) Shortness of breath cyclobenzaprine HCl [From Flexeril] Allergy (Verified 03/09/18 14:21) Rash ketorolac tromethamine [From Toradol] Allergy (Verified 03/09/18 14:21) Chest tightness sulfamethoxazole [From Bactrim] Allergy (Verified 07/22/18 14:21) Itching trimethoprim [From Bactrim] Allergy (Verified 03/09/18 14:21) Itching metformin Adverse Reaction (Verified 03/09/18 14:21) Other headache valacyclovir HCl [From Valtrex] Adverse Reaction (Verified 03/09/18 14:21) Other Home Medications: Ambulatory Orders Medication Instructions Recorded Allopurinol [Zyloprim] 100 mg PO DAILYCM 05/07/16 Aspirin [Aspirin, Baby] 81 mg PO DAILY 05/07/16 Montelukast [Singulair] 10 mg PO DAILY 05/07/16 Surgical History: appendectomy, cholecystectomy Lives: With Family Smoking Status: Never smoker - *Family History Paternal History Items: Heart Disease, - - Bone cancer Maternal History Items: COPD, Diabetes, Heart Disease, - - Smoker Review of Systems Constitutional: Reports: Fever. Denies: Chills, Weight Change HEENT: Denies: Head Aches, Sinus Congestion, Sinus Drainage Cardiovascular: Denies: Chest Pain, Palpitations Respiratory: Denies: Cough, Shortness of breath at rest, Sputum production Gastrointestinal: Reports: Abdominal Pain, Diarrhea. Denies: Nausea, Vomiting Genitourinary: Denies: Dysuria Musculoskeletal: Denies: Joint Pain, Joint Tenderness Skin: Denies: Rash, Wounds Neurological: Denies: Numbness, Tingling, Focal weakness Psychiatric: Denies: Anxiety, Depression, Homicidal Ideations, Suicidal Ideations Hematologic/ Lymphatic: Denies: Easy Bruising, Easy Bleeding VTE Information - Inpt Only VTE Present on Admission: No VTE Mechan Device Prophylaxis: SCD's VTE Pharm Prophylaxis ordered?: Yes - Physical Exam General: Alert, Oriented x3, Cooperative HEENT: Atraumatic, PERRLA, EOMI, Normocephalic Neck: Supple, No JVD, Negative Carotid Bruits Lungs: Clear to auscultation, Normal air movement Cardiovascular: Regular rate, No murmurs Abdomen: Bowel Sounds Present, Soft, Non Tender Extremities: No edema, Capillary Refill Less than 3 Seconds Skin: No rashes, No breakdown Musculoskeletal: No Tenderness to Palpation of Joints or Extremities Neurological: Cranial nerves II-XII grossly intact Psych/Mental Status: Normal Affect, Appropriate Vital Signs Temp Pulse Resp BP Pulse Ox 102.8 F H 102 H 24 H 167/69 H 97 03/09/18 18:29 03/09/18 20:15 03/09/18 20:15 03/09/18 20:15 03/09/18 20:15 Assessment/Plan All Active Problems (Last Reviewed 03/10/18 @ 03:57 by Jose Oseguera MD) Chronic generalized abdominal pain (Acute) Intractable vomiting with nausea (Acute) Knee effusion, right (Resolved) UTI (urinary tract infection) (Resolved) Hypoglycemia (Resolved) Viral upper respiratory infection (Resolved) Sepsis (Resolved) Chest pain (Resolved) Community acquired pneumonia (Resolved) History of pulmonary embolus (PE) (Resolved) Hypotension (Resolved) Intractable vomiting with nausea (Resolved) Pulmonary embolism (Resolved) 62 year old female w/ h/o fibromyalgia, DMII, diabetic gastroparesis, restless leg, GERD, PAF, and seizure admitted for sepsis with unknown source. 1) Sepsis with unknown source: Will start ceftriaxone for empiric treatment. If cultures negative, will probably stop antibiotic. Will consider autoimmune workup if persistent fever. UA, CT abdominal and chest xray negative. Cultures pending. 2) Lactic acidosis: Resolved with hydration. Monitor. 3) Diarrhea: Probably secondary to meds. Hold reglan. Monitor. 4) Chronic issues: fibromyalgia, DMII, diabetic gastroparesis, restless leg, GERD, PAF, and seizure Resume home meds. 5) Prophylaxis: SCD / heparin. 03/10/18 0407 <Electronically signed by Jose Oseguera MD> Date Jose Oseguera MD Cosigner Signature: Date (if applicable) CC: Jose Oseguera MD; You Parks MD Signed TROPONIN-I Collected: 03/10/2018 Status: F Source: MARCUS 1:50 AM REPOSITORY Order Comment: 'TROP' Serial specimen #1, #2 or #3: 2 TYPE CODE TESTS RESULT OUT OF RANGE REFERENCE UNITS LAB L501.4010 <0.045 ng/mL Normal < 0.015 TROPONIN-I Result Comment: TROPONIN-I EXPECTED VALUES <0.045 Negative 0.045 - 0.590 Consistent with Cardiac Damage > OR = 0.600 Critical Value Not every elevated troponin is indicative of VT. These values should be used with clinical judgement in examining the patient's clinical picture for diagnosis. To establish a diagnosis of VT versus myocardial injury, there must be a demonstrated rise and/or fall in the troponin values, in addition to ischemic symptoms, EKG changes, new regional wall motion abnormality, and/or angiographical evidence. PLEASE NOTE: REFERENCE RANGES EDITED 17 Performed By: #### L501.4010 #### [facility] [address] [place], [address] CHEST 1 VIEW Observed: 03/10/2018 Status: F Source: [place] (PORTABLE) 12:00 AM REPOSITORY [facility] Imaging Services [address] [place] [address] Chest 1 View (Portable) MR#: [id number] Acct: [id number] Name: CRYSTAL CRAMER Marissa Rep #: [id number] : 1955 F 62 From: Bita Hunter MD PCP: You Parks MD Status: ADM SIMONA Study: Chest 1 View (Portable) Date of Exam: 03/10/18 Exam# [id number] Ordering Dr: Jose Oseguera MD STUDY: X-RAY CHEST REASON FOR EXAM: Female, 62 years old. FEVER TECHNIQUE: Single AP portable view of the chest. COMPARISON: None. FINDINGS: The lungs are clear and expanded. There is no demonstrated pleural abnormality. Normal size heart. Normal mediastinum and judith. Normal visualized pulmonary arteries. Normal visualized aortic arch and descending thoracic aorta. Normal visualized thoracic spine. There is degenerative osteoarthritis of the bilateral shoulders. There is no demonstrated abnormality of the visualized soft tissue structures of the upper abdomen. RAD/Chest 1 View (Portable) IMPRESSION: Normal x-ray examination of the chest. Electronically Signed: Bita Hunter MD at 13:11 EDT Tel , Service support , CC: Jose Oseguera MD; You Parks MD Commercial Glazier: Signed STOOL Observed: 03/09/2018 Status: F Source: MARCUS LACTOFERRIN/WBC 11:54 PM REPOSITORY Stool Lacto/WBC Normal Reference Range = Negative Fecal WBC Lactoferrin Positive: Fecal WBC Lactoferrin present Performed By: #### M100.0605 #### [facility] [address] [place], [address] LACTIC ACID Collected: 03/09/2018 Status: F Source: [place]ARCUS 11:25 PM REPOSITORY TYPE CODE TESTS RESULT OUT OF RANGE REFERENCE UNITS LAB L503.6005 0.4-2.0 mmol/L Normal LACTIC ACID 1.8 Performed By: #### L503.6005 #### [facility] [address] [place], [address] TROPONIN-I Collected: 03/09/2018 Status: F Source: [place] 10:56 PM REPOSITORY Order Comment: 'TROP' Serial specimen #1, #2, #3, or #4: 1 TYPE CODE TESTS RESULT OUT OF RANGE REFERENCE UNITS LAB L501.4010 <0.045 ng/mL Normal < 0.015 TROPONIN-I Result Comment: TROPONIN-I EXPECTED VALUES <0.045 Negative 0.045 - 0.590 Consistent with Cardiac Damage > OR = 0.600 Critical Value Not every elevated troponin is indicative of VT. These values should be used with clinical judgement in examining the patient's clinical picture for diagnosis. To establish a diagnosis of VT versus myocardial injury, there must be a demonstrated rise and/or fall in the troponin values, in addition to ischemic symptoms, EKG changes, new regional wall motion abnormality, and/or angiographical evidence. PLEASE NOTE: REFERENCE RANGES EDITED 17 Performed By: #### L501.4010 #### [facility] [address] [place], [address] BEDSIDE GLUCOSE Collected: 03/09/2018 Status: F Source: [place] 10:44 PM REPOSITORY TYPE CODE TESTS RESULT OUT OF REFERENCE UNITS RANGE LAB L501.080 70-110 mg/dL High BEDSIDE GLU 275 Result Comment: MANAGEMENT OF PATIENT CARE PER NURSING PROTOCOL Performed By: #### L501.080 #### [facility] Point of Care [address] [place] [address] EMERGENCY DEPARTMENT Observed: 03/09/2018 Status: F Source: [place] SUMMARY 7:38 PM REPOSITORY [facility] Medical Records Department [address] [place] [address] Emergency Department Summary 03/09/18 1541 MR#: [id number] Acct: [id number] Name: CRYSTAL CRAMER Rep #: [id number] : 1955 62 From: Carlo Moffett MD PCP: You Parks MD Status: REG ER - ER Visit Summary Date of Service: 03/09/18 Chief Complaint: Vomiting History of Present Illness: The patient is a 62 F who presents with vomiting. She is well-known to this emergency department. She has recurrent nausea and vomiting. She began vomiting again this morning. She reports about 6 episodes of nonbloody nonbilious emesis. However she also reports 3 episodes of loose watery stools which she normally does not have with this. She complains of diffuse abdominal cramping. No fevers. No chest pain shortness of breath. Physical Examination: Blood pressure 209/93, afebrile, heart rate 121 Patient resting comfortably no distress Moist mucous membranes Heart regular rhythm tachycardia Lungs are clear Abdomen soft no reproducible tenderness nondistended Alert Test Results: Laboratory studies are notable for leukocytosis with a white blood cell count of 19,000. Creatinine is 1.26. Glucose 351. Hepatic function lipase notable for alkaline phosphatase 267, AST 54. Urinalysis normal. Lactic acid 2.4. CT the abdomen and pelvis shows no acute abnormality. Chest x-ray shows no acute findings. Emergency Department Course and Treatment: Patient is well- known to our department and she does have a history of recurrent vomiting. She was initially symptomatically treated with IV fluids Phenergan and Bentyl. She continued to complain of nausea and was also given IV Reglan she does complain of today which she normally does not have her leukocytosis with white count of 19,000 CT of the abdomen was obtained which shows no acute abnormality. On reevaluation the patient developed a fever of 102.8. Her pulse ox was noted to be 91% although she does not have respiratory symptoms. A chest x-ray was obtained which shows no acute findings. Her lactic acid is also mildly elevated. There is no obvious clear source of bacterial infection given normal chest x-ray normal CT the abdomen normal rash. However she was empirically treated with IV Zosyn. She was discussed with the hospitalist will be admitted. Treatment Plan: [] Disposition: Admit Impression: Abdominal pain Nausea vomiting diarrhea Systemic inflammatory response syndrome This note was generated with Instagram dictation software. It may contain incorrect words, spelling, and punctuation that were not noted in review of the chart prior to signing ED Disposition - Plan for ED Patient: Chief Complaint: Nausea/Vomiting Referrals: You Parks MD [Primary Care Provider] - What to do if you have Problems For any increased pain, shortness of breath, bleeding, nausea or vomiting, chest pain, or any unexpected problems, contact your Primary Care Provider. Call [facility] ([phone]) or report to the closest Emergency Room. Call 911 if necessary. 03/09/181937 <Electronically signed by Carlo Moffett MD> Date Carlo Moffett MD Cosigner Signature (If Indicated): Date CC: You Parks MD LACTIC ACID Collected: 03/09/2018 Status: F Source: MARCUS 6:45 PM REPOSITORY Order Comment: Yes/No query for Sepsis Lactate Rule Y TYPE CODE TESTS RESULT OUT OF REFERENCE UNITS RANGE LAB L503.6005 0.4-2.0 mmol/L High LACTIC ACID 2.4 Result Comment: CALLED [facility] WITH [facility] BY [facility] 03-09-18 AT 1922PM READ BACK BY SAME Performed By: #### L503.6005 #### [facility] [address] [place] [place], [place], [address] Observed: 03/09/2018 Status: F Source: MARCUS CULTURE, BLOOD (WB) 6:45 PM REPOSITORY BC No growth in 5 days. Performed By: #### M200.1000 #### [facility] [address] [place], [place], [address] CHEST 1 VIEW Observed: 03/09/2018 Status: F Source: MARCUS (PORTABLE) 6:26 PM REPOSITORY [facility] Imaging Services [address] [place] [address] Chest 1 View (Portable) MR#: [id number] Acct: [id number] Name: CRYSTAL CRAMER Rep #: [id number] : 1955 F 62 From: Ok Pandey MD PCP: You Parks MD Status: REG ER Study: Chest 1 View (Portable) Date of Exam: 03/09/18 Exam# [id number] Ordering Dr: Carlo Moffett MD STUDY: X-RAY CHEST REASON FOR EXAM: Female, 62 years old. SOB/DYSPNEA AND NAUSEA. COULD NOT TAKE IN A BIG BREATH TECHNIQUE: Single frontal view of the chest. COMPARISON: 12-05-17 FINDINGS: Chronic appearing increased interstitial lung markings. There is no demonstrated pleural abnormality. Enlarged heart size. Normal mediastinum and judith. Normal visualized pulmonary arteries. There is atherosclerotic calcification of the aortic arch with tortuosity. There are diffuse degenerative changes of the visualized thoracic spine. There is degenerative osteoarthritis of the bilateral shoulders. There is no demonstrated abnormality of the visualized soft tissue structures of the upper abdomen. RAD/Chest 1 View (Portable) IMPRESSION: There are no acute findings. Electronically Signed: Ok Pandey MD at 18:58 EDT , Service support , CC: Carlo Moffett MD; You Parks MD Commercial Glazier: Signed URINALYSIS, COMPLETE Collected: 03/09/2018 Status: F Source: MARCUS 5:35 PM REPOSITORY Order Comment: Order Date: 03/09/18 Has pt arrived? Y How was Urine Obtained? SLAB LIFTING SUPERVISOR TO SPECIFY TYPE CODE TESTS RESULT OUT OF RANGE REFERENCE UNITS LAB L400.3000 Yellow COLOR Normal Yellow LAB L400.3050 Clear Normal CLARITY Clear LAB L400.3200 Normal mg/dl High GLUCOSE, UR 1000 LAB L400.3300 Negative mg/dL Normal BILIRUBIN URINE Negative LAB L400.3400 Negative mg/dl Normal KETONE UR Negative LAB L400.3465 1.002-1.030 Normal SP.GR. DIPSTX 1.010 LAB L400.3550 5.0 - 8.0 pH UR Normal 6.0 LAB L400.3600 Negative mg/dl High PROT 15 DIPSTX LAB L400.3700 Normal mg/dl Normal UROBILI Normal LAB L400.3750 Negative Normal NITRITE UR Negative LAB L400.3780 Negative /ul High 25 OCCULT BLOOD-UR LAB L400.3800 Negative /ul LEUK Normal ESTERASE Negative LAB L400.4050 0-5 /hpf WBC 0 Normal SEEN LAB L400.4100 0-5 /hpf Normal RBC-UA 0-5 SEEN LAB L400.4150 5-10 /hpf SQUAM Normal EPI 0-5 SEEN LAB L400.4300 None Seen /hpf 0 Normal BACTERIA SEEN LAB L400.4350 <or=2+ /hpf 0 Normal MUCUS, URINE SEEN Performed By: #### L400.0001 #### [facility] [address] [place], [place], [address] Observed: 03/09/2018 Status: F Source: MARCUS CULTURE, URINE 5:35 PM REPOSITORY Comments: ran off urine from ER Urine Culture Culture exhibits no growth. Performed By: #### M100.0650 #### [facility] [address] [place], [address] ABDOMEN/PELVIS WITHOUT Observed: 03/09/2018 Status: F Source: MARCUS CONT 4:09 PM REPOSITORY [facility] Imaging Services [address] [place] [address] Abdomen/Pelvis without Cont MR#: [id number] Acct: [id number] Name: CRYSTAL CRAMER Rep #: [id number] : 1955 F 62 From: Lucia Medley MD PCP: You Parks MD Status: REG ER Study: Abdomen/Pelvis without Cont Date of Exam: 03/09/18 Exam# [id number] Ordering Dr: Carlo Moffett MD STUDY: CT ABDOMEN AND PELVIS WITHOUT CONTRAST REASON FOR EXAM: Female, 62 years old. N/V/D. PRIOR APPY AND KUMAR RADIATION DOSAGE (If Supplied By Facility): CTDIvol = ( 34.11 ) mGy, DLP = ( 1849.53 ) mGycm TECHNIQUE: Transaxial images were obtained from the dome of the diaphragm to the symphysis pubis without oral contrast, and without intravenous contrast. Sagittal and coronal images were reconstructed. Individualized dose optimization techniques were used for this CT. COMPARISON: January 10, 2017, FINDINGS: The visualized lung bases are unremarkable. The visualized portions of the heart are within normal limits. Gallbladder and appendix are not seen. 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 Normal spleen. Normal pancreas. Normal bilateral adrenal glands. Normal right kidney. Normal left kidney. Normal visualized stomach. Normal small intestine. The cecum is again seen in the left abdomen. There is mild atherosclerotic calcification of the abdominal aorta, without a demonstrated aneurysm. Normal inferior vena cava. Normal retroperitoneum. Normal urinary bladder. Normal abdominal wall. There are diffuse degenerative changes of the visualized lumbar spine. CT/Abdomen/Pelvis without Cont IMPRESSION: No acute abnormality is demonstrated. Electronically Signed: Lucia Medley MD at 17:06 EDT , Service support , CC: Carlo Moffett MD; You Parks MD Commercial Glazier: Signed CBC W/DIFF, AUTOMATED Collected: 03/09/2018 Status: C Source: MARCUS 2:35 PM REPOSITORY TYPE CODE TESTS RESULT OUT OF RANGE REFERENCE UNITS LAB L100.1000 4.4-11.0 K/mm3 High WBC 19.1 LAB L100.1200 4.2-5.4 M/mm3 Normal RBC 5.01 LAB L100.1300 12.0-15.0 g/dl Normal HGB 12.1 LAB L100.1400 37-47 % Normal HCT 39.2 LAB L100.1500 81-99 fL Low MCV 78.2 LAB L100.1600 27.0-32.0 pg Low MCH 24.2 LAB L100.1700 32-36 g/gl Low MCHC 30.9 LAB L100.1810 11.6-14.6 % High RDW CV 15.3 LAB L100.1820 35.1-43.9 fl Normal RDW SD 43.3 LAB L100.1900 150-450 K/mm3 Normal PLT 382 LAB L100.2000 6.2-12.0 fl Normal MPV 9.4 LAB L100.2100 47-70 % High NEUT% 84.2 LAB L100.2200 19-41 % Low LY% 5.8 LAB L100.2300 0-10 % Normal MONO% 8.1 LAB L100.2400 0-5 % Normal EO% 1.5 LAB L100.2500 0-1 % Normal BASO% 0.2 LAB L100.2550 0.0-0.9 % Normal IM GRAN % 0.200 Result Comment: IG% - Immature Granulocytes (promyelocytes, myelocytes and metamyelocytes) > 1% indicates that a LEFT SHIFT is Present. LAB L100.2620 2.0-7.7 X10 3/uL High Absolute Neut 16.1 LAB L100.2720 0.83-4.51 X10 3/ul Normal Absolute Lymph 1.10 LAB L100.4500 Normal SMEAR COMMENT SCANNED LAB L100.5500 ADEQ Normal PLT EST ADEQUATE LAB L100.9900 Normal PATH REV Reviewed Result Comment: Neutrophilic leukocytosis. Clinical correlation necessary. Kofi Adrian M.D. 03/10/18 AMENDED REPORT 03/10/18 1415 PATH REV previously reported as: Lisha yepez Performed By: #### L100.0100 #### [facility] [address] [place], [address] COMPREHENSIVE METABOLIC Collected: 03/09/2018 Status: F Source: [facility] 2:35 PM REPOSITORY TYPE CODE TESTS RESULT OUT OF RANGE REFERENCE UNITS LAB L501.0100 74-106 mg/dL High GLU 351 Result Comment: Glucose result greater than or equal to 200 mg/dL suggests DIABETES MELLITUS per A.D.A. criteria. Please note revised GLUCOSE reference range effective 2017. LAB L501.1000 7-18 mg/dL Normal BUN 9 LAB L501.1100 0.55-1.02 mg/dL High CREAT,SERUM 1.26 Result Comment: The validity of the calculated GFR AND GFRAA in patients over 70 years has not been determined. Clinical correlation is essential. LAB L501.1110 >60 mL/min Low EST GFR 46 Result Comment: Non- GFR Calc LAB L501.1115 >60 mL/min Low EST GFR - AA 55 Result Comment: GFR Calc LAB L501.1255 ml/min Normal Estimated CRCL 42.78 LAB L501.1300 10-20 RATIO Low BUN/CRE 7.1 LAB L501.1500 6.4-8. g/dL High 2 T PROT 8.3 LAB L501.1800 3.2-5. g/dL Normal 0 ALB 3.3 LAB L501.1950 2.2-4. g/dL High 2 GLOB 5.0 LAB L501.2000 0.9-2. RATIO Low 4 A/G 0.7 LAB L501.2200 8.5-10 mg/dL Normal .1 CA 9.2 LAB L501.4100 15-37 U/L High AST 54 LAB L501.4305 45-117 U/L High ALK P 267 LAB L501.4405 13-56 U/L Normal ALT 47 LAB L501.4600 0.20-1 mg/dL Normal .00 T BILI 0.90 LAB L501.5300 136-14 mmol/L Low 5 NA 133 LAB L501.5600 3.5-5. mmol/L Normal 1 K 4.1 LAB L501.5900 98-107 mmol/L Low CL 97 LAB L501.6100 21.0-3 mmol/L Normal 2.0 CO2 27.0 LAB L501.6200 5-15 Normal GAP 9 Performed By: #### L500.4050, L501.2450 #### [facility] [address] [place], [address] LIPASE Collected: 03/09/2018 Status: F Source: [place] 2:35 PM REPOSITORY TYPE CODE TESTS RESULT OUT OF RANGE REFERENCE UNITS LAB L501.2450 73-393 U/L Normal LIPASE 121 Performed By: #### L500.4050, L501.2450 #### [facility] [address] [place], [address] CRP Collected: 03/09/2018 Status: F Source: [place] 2:35 PM REPOSITORY TYPE CODE TESTS RESULT OUT OF RANGE REFERENCE UNITS LAB L501.6710 0.0-3.0 mg/L High 76.40 C-REACTIVE PROT Result Comment: C-Reactive Protein (CRP) provides useful information for the diagnosis, therapy and monitoring of inflammatory processes and associated diseases. For the evaluation of Relative Risk for Cardiovascular Disease, a High Sensitivity CRP (HSCRP) should be ordered. Performed By: #### L501.6710 #### [facility] [address] [place], [address] ERYTHROCYTE SED RATE Collected: 03/09/2018 Status: F Source: [place] 2:35 PM REPOSITORY TYPE CODE TESTS RESULT OUT OF RANGE REFERENCE UNITS LAB L102.0000 0-30 mm/hr High SED RATE 43 Performed By: #### L101.9900 #### [facility] [address] [place], [place], [address] EMERGENCY DEPARTMENT Observed: 03/04/2018 Status: F Source: [place] SUMMARY 1:19 PM REPOSITORY [facility] Medical Records Department [address] [place] [address] Emergency Department Summary 03/04/18 1315 MR#: [id number] Acct: [id number] Name: CRYSTAL CRAMER Rep #: [id number] : 1955 62 From: Son Long MD PCP: You Parks MD Status: REG ER - ER Visit Summary Date of Service: 03/04/18 Chief Complaint: Nausea History of Present Illness: The patient is a 62 F with chronic recurrent nausea she is a diabetic. She has no current abdominal pain no fever or chills. No diarrhea or constipation. It is worse today. Physical Examination: Otherwise unremarkable exam slightly dry mucous membranes with a soft nontender abdomen. Emergency Department Course and Treatment: Patient improved with antiemetics IV fluids and p.o. Valium. I will discharge her home she has Reglan, Phenergan and Zofran at home. Disposition: Discharge stable condition Impression: Nausea This note was generated with Instagram dictation software. It may contain incorrect words, spelling, and punctuation that were not noted in review of the chart prior to signing ED Disposition - Plan for ED Patient: Disposition: Home or Assisted Living Chief Complaint: Nausea/Vomiting Instructions: ED Nausea Vomiting Referrals: You Parks MD [Primary Care Provider] - 2 Days What to do if you have Problems For any increased pain, shortness of breath, bleeding, nausea or vomiting, chest pain, or any unexpected problems, contact your Primary Care Provider. Call [facility] ([phone]) or report to the closest Emergency Room. Call 911 if necessary. 03/04/18 1319 <Electronically signed by Son Long MD> Date Son Long MD Cosigner Signature (If Indicated): Date CC: You Parks MD CBC W/DIFF, AUTOMATED Collected: 03/04/2018 Status: F Source: [facility] 11:12 AM REPOSITORY TYPE CODE TESTS RESULT OUT OF RANGE REFERENCE UNITS LAB L100.1000 4.4-11.0 K/mm3 High WBC 13.0 LAB L100.1200 4.2-5.4 M/mm3 Normal RBC 4.58 LAB L100.1300 12.0-15.0 g/dl Low HGB 10.9 LAB L100.1400 37-47 % Low HCT 35.6 LAB L100.1500 81-99 fL Low MCV 77.7 LAB L100.1600 27.0-32.0 pg Low MCH 23.8 LAB L100.1700 32-36 g/gl Low MCHC 30.6 LAB L100.1810 11.6-14.6 % High RDW CV 15.3 LAB L100.1820 35.1-43.9 fl Normal RDW SD 43.0 LAB L100.1900 150-450 K/mm3 Normal PLT 324 LAB L100.2000 6.2-12.0 fl Normal MPV 9.2 LAB L100.2100 47-70 % Normal NEUT% 68.6 LAB L100.2200 19-41 % Normal LY% 19.0 LAB L100.2300 0-10 % Normal MONO% 8.4 LAB L100.2400 0-5 % Normal EO% 3.2 LAB L100.2500 0-1 % Normal BASO% 0.7 LAB L100.2550 0.0-0.9 % Normal IM GRAN % 0.100 Result Comment: IG% - Immature Granulocytes (promyelocytes, myelocytes and metamyelocytes) > 1% indicates that a LEFT SHIFT is Present. LAB L100.2620 2.0-7.7 X10 3/uL High Absolute Neut 8.9 LAB L100.2720 0.83-4.51 X10 3/ul Normal Absolute Lymph 2.47 Performed By: #### L100.0100 #### [facility] [address] [place], [address] COMPREHENSIVE METABOLIC Collected: 03/04/2018 Status: F Source: [facility] 11:12 AM REPOSITORY TYPE CODE TESTS RESULT OUT OF RANGE REFERENCE UNITS LAB L501.0100 74-106 mg/dL High GLU 286 Result Comment: Glucose result greater than or equal to 200 mg/dL suggests DIABETES MELLITUS per A.D.A. criteria. Please note revised GLUCOSE reference range effective 2017. LAB L501.1000 7-18 mg/dL Normal BUN 13 LAB L501.1100 0.55-1.02 mg/dL High CREAT,SERUM 1.15 Result Comment: The validity of the calculated GFR AND GFRAA in patients over 70 years has not been determined. Clinical correlation is essential. LAB L501.1110 >60 mL/min Low EST GFR 51 Result Comment: Non- GFR Calc LAB L501.1115 >60 mL/min Normal EST GFR - AA 61 Result Comment: GFR Calc LAB L501.1255 ml/min Normal Estimated CRCL 46.87 LAB L501.1300 10-20 RATIO Normal BUN/CRE 11.3 LAB L501.1500 6.4-8. g/dL Normal 2 T PROT 7.2 LAB L501.1800 3.2-5. g/dL Low 0 ALB 3.0 LAB L501.1950 2.2-4. g/dL Normal 2 GLOB 4.2 LAB L501.2000 0.9-2. RATIO Low 4 A/G 0.7 LAB L501.2200 8.5-10 mg/dL Normal .1 CA 8.9 LAB L501.4100 15-37 U/L High AST 56 LAB L501.4305 45-117 U/L High ALK P 210 LAB L501.4405 13-56 U/L Normal ALT 42 LAB L501.4600 0.20-1 mg/dL Normal .00 T BILI 0.50 LAB L501.5300 136-14 mmol/L Normal 5 NA 138 LAB L501.5600 3.5-5. mmol/L Normal 1 K 4.8 LAB L501.5900 98-107 mmol/L Normal CL 104 LAB L501.6100 21.0-3 mmol/L Normal 2.0 CO2 26.0 LAB L501.6200 5-15 Normal GAP 8 Performed By: #### L500.4050 #### [facility] [address] [place], [place], [address] EMERGENCY DEPARTMENT Observed: 02/27/2018 Status: F Source: [facility] SUMMARY 11:17 AM REPOSITORY [facility] Medical Records Department [address] [place] [address] Emergency Department Summary 02/26/18 1218 MR#: [id number] Acct: [id number] Name: CRYSTAL CRAMER Rep #: [id number] : 1955 62 From: Ramon Young MD PCP: You Parks MD Status: DEP ER - ER Visit Summary Date of Service: 02/26/18 Chief Complaint: Vomiting History of Present Illness: The patient is a [address] Parks. She has a history of gastroparesis. She reports that she began vomiting this morning. She is vomited twice. No blood or emesis. No abdominal pain. No diarrhea. Her last problem was today. No melena or hematochezia. No dysuria or frequency. No fever or chills. Physical Examination: Vitals: Stable. Afebrile. General: Well-nourished and well-developed. Head: Normocephalic atraumatic. Neck: Supple, no lymphadenopathy. No JVD. Nontender. Cardiovascular: Regular rate and rhythm. No murmurs. Respiratory: No respiratory distress. Clear to auscultation bilaterally. Abdominal: Soft, nontender, nondistended, normal bowel sounds. No guarding, rebound, or peritoneal signs. Back: Nontender. Extremities: Nontender, no edema. Skin: Normal color, no rash. Neurologic: Alert and oriented 3. Cranial nerves II through XII are intact. Normal strength and sensation. Psych: Normal affect. Emergency Department Course and Treatment: Patient was given a dose of Zofran p.o. and Phenergan IM. She reports that she is still nauseated. However, she has not vomited while here. She had an IV placed and was given a dose of Reglan IV and feels improved. Treatment Plan: Patient be discharged with Zofran. Instructed continue use her Phenergan at home. Follow with her primary care physician 1-2 days if not improving. Disposition: To home in improved and stable condition. Impression: 1. Gastroparesis. This note was generated with Instagram dictation software. It may contain incorrect words, spelling, and punctuation that were not noted in review of the chart prior to signing ED Disposition - Plan for ED Patient: Disposition: Home or Assisted Living Chief Complaint: Nausea/Vomiting Instructions: ED Nausea Vomiting Prescriptions: Ondansetron [Zofran Odt] 4 mg PO Q8H PRN PRN #10 tablet PRN Reason: Nausea Referrals: You Parks MD [Primary Care Provider] - 1-2 Days if not improving What to do if you have Problems For any increased pain, shortness of breath, bleeding, nausea or vomiting, chest pain, or any unexpected problems, contact your Primary Care Provider. Call [facility] ([phone]) or report to the closest Emergency Room. Call 911 if necessary. 02/27/18 1117 <Electronically signed by Ramon Young MD> Date Ramon Young MD Cosigner Signature (If Indicated): Date CC: You Parks MD 12 LEAD ELECTROCARDIOGRAM Observed: 02/24/2018 Status: F Source: [facility] 3:39 PM REPOSITORY [facility] Cardiovascular Services [address] [place] [id number] 12 Lead EKG 02/19/18 0957 MR#: [id number] Acct: [id number] Name: CRYSTAL CRAMER Marissa Rep #: [id number] : 1955 62 From: Perfecto Haskins MD Attending Dr: Status: DEP ER Ordering Dr: Robe Root DO Date: 02/19/18 Location: ED Sex: F C Admitted: Test Reason : N/V Blood Pressure : / mmHG Vent. Rate : 087 BPM Atrial Rate : 087 BPM P-R Int : 150 ms QRS Dur : 088 ms QT Int : 390 ms P-R-T Axes : 019 -37 042 degrees QTc Int : 469 ms Normal sinus rhythm Left axis deviation Abnormal ECG Confirmed by PERFECTO HASKINS MD ([id number]), video effects editor MAIKEL MULLEN ([id number]) on 02/24/2018 3:38:48 PM Referred By: BERNARDINO Confirmed By:PERFECTO HASKINS MD 02/24/18 1538 Date Perfecto Haskins MD CC: Robe Root DO; You Parks MD Signed EMERGENCY DEPARTMENT Observed: 02/22/2018 Status: F Source: [facility] SUMMARY 10:49 PM REPOSITORY [facility] Medical Records Department [address] [place] [address] Emergency Department Summary 02/22/182028 MR#: [id number] Acct: [id number] Name: CRYSTAL CRAMER Rep #: [id number] : 1955 62 From: Mukul Rico MD PCP: You Parks MD Status: DEP ER - ER Visit Summary Date of Service: 02/22/18 Chief Complaint: Nausea, vomiting History of Present Illness: The patient is a 62 F presents to the emergency department nausea and vomiting. Patient has a history of this. She does have a history of gastroparesis. She has had multiple visits to the emergency department for the same symptoms. She was actually seen here 3 days ago. She states she is doing well begin to get nauseated yesterday. She began have vomiting today. She denies abdominal pain. She denies fevers or chills. She did try to take her Phenergan at home with no improvement. Physical Examination: Vital signs reviewed General: Well-nourished, well-developed Head: Normocephalic, atraumatic Eyes: Pupils equal and reactive, extraocular muscles intact Neck, supple, no lymphadenopathy Heart: Regular rate and rhythm Respiratory: No distress, clear bilaterally Abdomen: Soft, nontender, nondistended, no peritoneal signs Back: Nontender Extremities: Nontender, no edema, no cords Skin: Normal color no rash Neuro: Alert and oriented, no focal or lateralizing deficits Test Results: [] Emergency Department Course and Treatment: The patient presents to the emergency department with recurrent nausea and vomiting. She has all these symptoms multiple times. IV was established. Patient was given Reglan with little improvement. Labs do show mild leukocytosis which I feel is likely reactive. She has absolutely no abdominal pain. She is hyperglycemic and was given insulin. The patient was redosed with Phenergan with improvement of her symptoms. This is a chronic issue for the patient. I do not feel admission is indicated. She will be discharged home to continue her antiemetics. Treatment Plan: [] Disposition: Discharge Impression: Nausea and vomiting This note was generated with Instagram dictation software. It may contain incorrect words, spelling, and punctuation that were not noted in review of the chart prior to signing ED Disposition - Plan for ED Patient: Chief Complaint: Nausea/Vomiting Instructions: ED Nausea Vomiting Referrals: You Parks MD [Primary Care Provider] - What to do if you have Problems For any increased pain, shortness of breath, bleeding, nausea or vomiting, chest pain, or any unexpected problems, contact your Primary Care Provider. Call [facility] ([phone]) or report to the closest Emergency Room. Call 911 if necessary. 02/22/18 2249 <Electronically signed by Mukul Rico MD> Date Mukul Rico MD Cosigner Signature (If Indicated): Date CC: You Parks MD CBC W/DIFF, AUTOMATED Collected: 02/22/2018 Status: F Source: [facility] 8:10 PM REPOSITORY TYPE CODE TESTS RESULT OUT OF RANGE REFERENCE UNITS LAB L100.1000 4.4-11.0 K/mm3 High WBC 13.4 LAB L100.1200 4.2-5.4 M/mm3 Normal RBC 4.90 LAB L100.1300 12.0-15.0 g/dl Low HGB 11.8 LAB L100.1400 37-47 % Normal HCT 37.6 LAB L100.1500 81-99 fL Low MCV 76.7 LAB L100.1600 27.0-32.0 pg Low MCH 24.1 LAB L100.1700 32-36 g/gl Low MCHC 31.4 LAB L100.1810 11.6-14.6 % High RDW CV 15.2 LAB L100.1820 35.1-43.9 fl Normal RDW SD 42.6 LAB L100.1900 150-450 K/mm3 Normal PLT 370 LAB L100.2000 6.2-12.0 fl Normal MPV 9.2 LAB L100.2100 47-70 % High NEUT% 77.0 LAB L100.2200 19-41 % Low LY% 15.6 LAB L100.2300 0-10 % Normal MONO% 4.7 LAB L100.2400 0-5 % Normal EO% 2.2 LAB L100.2500 0-1 % Normal BASO% 0.4 LAB L100.2550 0.0-0.9 % Normal IM GRAN % 0.100 Result Comment: IG% - Immature Granulocytes (promyelocytes, myelocytes and metamyelocytes) > 1% indicates that a LEFT SHIFT is Present. LAB L100.2620 2.0-7.7 X10 3/uL High Absolute Neut 10.3 LAB L100.2720 0.83-4.51 X10 3/ul Normal Absolute Lymph 2.08 Performed By: #### L100.0100 #### [facility] [address] [place], [place], [address] COMPREHENSIVE METABOLIC Collected: 02/22/2018 Status: F Source: [facility] 8:10 PM REPOSITORY TYPE CODE TESTS RESULT OUT OF RANGE REFERENCE UNITS LAB L501.0100 74-106 mg/dL High GLU 410 Result Comment: Glucose result greater than or equal to 200 mg/dL suggests DIABETES MELLITUS per A.D.A. criteria. Please note revised GLUCOSE reference range effective 2017. LAB L501.1000 7-18 mg/dL Normal BUN 12 LAB L501.1100 0.55-1.02 mg/dL High CREAT,SERUM 1.25 Result Comment: The validity of the calculated GFR AND GFRAA in patients over 70 years has not been determined. Clinical correlation is essential. LAB L501.1110 >60 mL/min Low EST GFR 46 Result Comment: Non- GFR Calc LAB L501.1115 >60 mL/min Low EST GFR - AA 56 Result Comment: GFR Calc LAB L501.1255 ml/min Normal Estimated CRCL 43.12 LAB L501.1300 10-20 RATIO Low BUN/CRE 9.6 LAB L501.1500 6.4-8. g/dL Normal 2 T PROT 7.7 LAB L501.1800 3.2-5. g/dL Normal 0 ALB 3.2 LAB L501.1950 2.2-4. g/dL High 2 GLOB 4.5 LAB L501.2000 0.9-2. RATIO Low 4 A/G 0.7 LAB L501.2200 8.5-10 mg/dL Normal .1 CA 8.9 LAB L501.4100 15-37 U/L High AST 42 LAB L501.4305 45-117 U/L High ALK P 206 LAB L501.4405 13-56 U/L Normal ALT 33 LAB L501.4600 0.20-1 mg/dL Normal .00 T BILI 0.40 LAB L501.5300 136-14 mmol/L Normal 5 NA 136 LAB L501.5600 3.5-5. mmol/L Normal 1 K 4.2 LAB L501.5900 98-107 mmol/L Normal CL 101 LAB L501.6100 21.0-3 mmol/L Normal 2.0 CO2 26.0 LAB L501.6200 5-15 Normal GAP 9 Performed By: #### L500.4050 #### [facility] [address] [facility] [place], [address] EMERGENCY DEPARTMENT Observed: 02/21/2018 Status: F Source: [facility] SUMMARY 7:56 AM REPOSITORY [facility] Medical Records Department [address] [place] [address] Emergency Department Summary 02/21/18 0752 MR#: [id number] Acct: [id number] Name: CRYSTAL CRAMER Rep #: [id number] : 1955 62 From: Jose Alberto Umana MD PCP: You Parks MD Status: DEP ER - ER Visit Summary Date of Service: 02/21/18 Chief Complaint: Abdominal pain with nausea History of Present Illness: The patient is a 62 F who presents with abdominal pain the past couple of days that has been continuous and described as a aching sensation. The pain is diffuse. The pain is mild. She does report nausea and vomiting for the past 2-3 days with one episode of vomiting the day prior to visit. She has had no diarrhea. She denies any fever, chills night sweats. She denies any ocular, visual or auditory symptoms. She did report a cough, which is chronic. She also reported generalized weakness. Past medical history of type 1 diabetes and hypertension. Past surgical history appendectomy cholecystectomy Physical Examination: Vital signs are remarkable for an elevated blood pressure 175/94. Vital signs otherwise unremarkable. Head is atraumatic normocephalic. Pupils are equal round reactive. Extraocular muscles are intact. TMs are pearly white with landmarks noted. Nares patent with no drainage. Posterior pharynx without erythema or exudate. Uvula is midline. There is no dysphonia or dysphasia. Trachea is midline. There is no stridor with auscultation of the neck. Heart is regular without murmur, gallop or rub. S1 and S2 are normal. Lungs are clear to auscultation with good movement of air bilaterally. Abdomen is soft with tenderness. There is no distention. Bowel sounds are decreased. There is no palpable masses or pulsatile masses. There is no hepatosplenomegaly. Back is nontender. There is 1+ lower extremity edema. There is no asymmetry. Dermatologic exam is normal. Neurologic exam is nonfocal. Patient has a depressed affect. Test Results: BMP is remarkable for glucose of 154. Patient was treated with IV Reglan and received 1 L of normal saline. Emergency Department Course and Treatment: Patient had a p.o. challenge. She passed the p.o. challenge. Treatment Plan: Discharge to home with prescription for Reglan since she is diabetic and this may represent gastroparesis. Disposition: Discharged home in stable and improved condition. Impression: Abdominal pain with nausea and vomiting Gastroparesis secondary diabetes Mild dehydration Job number on date of service is [id number] This note was generated with Connectipityation software. It may contain incorrect words, spelling, and punctuation that were not noted in review of the chart prior to signing ED Disposition - Plan for ED Patient: Disposition: Home or Assisted Living Referrals: You Parks MD [Primary Care Provider] - What to do if you have Problems For any increased pain, shortness of breath, bleeding, nausea or vomiting, chest pain, or any unexpected problems, contact your Primary Care Provider. Call [facility] ([phone]) or report to the closest Emergency Room. Call 911 if necessary. 02/21/18 0756 <Electronically signed by Jose Alberto Umana MD> Date Jose Alberto Umana MD Cosigner Signature (If Indicated): Date CC: You Parks MD EMERGENCY DEPARTMENT Observed: 02/19/2018 Status: F Source: [facility] SUMMARY 11:41 AM REPOSITORY [facility] Medical Records Department [address] [place] [address] Emergency Department Summary 02/19/18 1139 MR#: [id number] Acct: [id number] Name: CRYSTAL CRAMER Rep #: [id number] : 1955 62 From: Robe Root DO PCP: You Parks MD Status: REG ER - ER Visit Summary Date of Service: 02/19/18 Chief Complaint: [Nausea] History of Present Illness: The patient is a 62 F [presents the emergency department complaint of nausea that started this morning. Patient has not taken her meds this morning. Patient states that in the middle the night she took some Phenergan but did not seem to help. Patient denies any abdominal pain. Patient denies diarrhea. Patient denies chest pain. Patient has history of chronic nausea issues. She has Reglan at home but did not take any of it. Patient denies fever or recent illness.] Physical Examination: [HEENT-PERRLA, EOMI. Cranial nerves II through XII grossly intact. TMs clear. Mucous membranes moist. No adenopathy. Cardiovascular-regular rate and rhythm without murmur or ectopy Lungs-clear to auscultation, chest wall stable without crepitus or subcu emphysema Abdomen-normoactive bowel sounds, soft, nontender, no rebound or rigidity, no peritoneal signs. Extremities-intact 4, normal range of motion, normal pulses, atraumatic] Test Results: [EKG obtained arrival shows sinus rhythm with a ventricular rate of 87 bpm with no acute ST segment changes. CBC with differential showed a white count of 9.8, hemoglobin 11.4, hematocrit 36, platelets 344. Chemistries unremarkable. Glucose was elevated 385. Urinalysis showed greater than 1000 glucose otherwise no signs of infection. Troponin was less than 0.015.] Emergency Department Course and Treatment: [Patient received Reglan 10 mg IV which did not help her symptoms. She then received Phenergan 12.5 mg IV and she got some relief but requested more nausea medicine and she was given another 12.5 mg of Phenergan after which time she was significantly improved.] Treatment Plan: [Patient advised to follow-up with her primary care physician within next 3-5 days.] Disposition: [Discharged home in stable condition] Impression: [Nausea-acute on chronic] This note was generated with Instagram dictation software. It may contain incorrect words, spelling, and punctuation that were not noted in review of the chart prior to signing ED Disposition - Plan for ED Patient: Chief Complaint: Nausea/Vomiting Referrals: You Parks MD [Primary Care Provider] - What to do if you have Problems For any increased pain, shortness of breath, bleeding, nausea or vomiting, chest pain, or any unexpected problems, contact your Primary Care Provider. Call [facility] ([phone]) or report to the closest Emergency Room. Call 911 if necessary. 02/19/18 1141 <Electronically signed by Robe Root DO> Date Robe Root DO Cosigner Signature (If Indicated): Date CC: You Parks MD DISCHARGE INSTRUCTION Observed: 02/19/2018 Status: F Source: [facility] 11:41 AM REPOSITORY [facility] Medical Records Department [address] [place] [address] Discharge Instruction 02/19/18 1141 MR#: [id number] Acct: [id number] Name: CRYSTAL CRAMER Rep #: [id number] : 1955 62 From: Robe Root DO PCP: You Parks MD Status: REG ER ED Disposition - Plan for ED Patient: Chief Complaint: Nausea/Vomiting Instructions: ED Nausea Vomiting Referrals: You Parks MD [Primary Care Provider] - 3-5 Days What to do if you have Problems For any increased pain, shortness of breath, bleeding, nausea or vomiting, chest pain, or any unexpected problems, contact your Primary Care Provider. Call [facility] ([phone]) or report to the closest Emergency Room. Call 911 if necessary. 02/19/18 1141 <Electronically signed by Robe Root DO> Date Charlette Bernardino BAIRES Cosigner Signature (If Indicated): Date CC: You Parks MD CBC W/DIFF, AUTOMATED Collected: 02/19/2018 Status: F Source: [facility] 10:12 AM REPOSITORY TYPE CODE TESTS RESULT OUT OF RANGE REFERENCE UNITS LAB L100.1000 4.4-11.0 K/mm3 Normal WBC 9.8 LAB L100.1200 4.2-5.4 M/mm3 Normal RBC 4.71 LAB L100.1300 12.0-15.0 g/dl Low HGB 11.4 LAB L100.1400 37-47 % Low HCT 35.9 LAB L100.1500 81-99 fL Low MCV 76.2 LAB L100.1600 27.0-32.0 pg Low MCH 24.2 LAB L100.1700 32-36 g/gl Low MCHC 31.8 LAB L100.1810 11.6-14.6 % High RDW CV 14.9 LAB L100.1820 35.1-43.9 fl Normal RDW SD 42.0 LAB L100.1900 150-450 K/mm3 Normal PLT 344 LAB L100.2000 6.2-12.0 fl Normal MPV 9.5 LAB L100.2100 47-70 % Normal NEUT% 66.0 LAB L100.2200 19-41 % Normal LY% 22.4 LAB L100.2300 0-10 % Normal MONO% 8.1 LAB L100.2400 0-5 % Normal EO% 2.9 LAB L100.2500 0-1 % Normal BASO% 0.5 LAB L100.2550 0.0-0.9 % Normal IM GRAN % 0.100 Result Comment: IG% - Immature Granulocytes (promyelocytes, myelocytes and metamyelocytes) > 1% indicates that a LEFT SHIFT is Present. LAB L100.2620 2.0-7.7 X10 3/uL Normal Absolute Neut 6.4 LAB L100.2720 0.83-4.51 X10 3/ul Normal Absolute Lymph 2.19 Performed By: #### L100.0100 #### [facility] [address] [place], [address] URINALYSIS, COMPLETE Collected: 02/19/2018 Status: F Source: [facility] 10:12 AM REPOSITORY Order Comment: Order Date: 02/19/18 How was Urine Obtained? CLEAN CATCH TYPE CODE TESTS RESULT OUT OF RANGE REFERENCE UNITS LAB L400.3000 Yellow COLOR Normal Yellow LAB L400.3050 Clear Normal CLARITY Clear LAB L400.3200 Normal mg/dl High GLUCOSE, UR 1000 LAB L400.3300 Negative mg/dL Normal BILIRUBIN URINE Negative LAB L400.3400 Negative mg/dl Normal KETONE UR Negative LAB L400.3465 1.002-1.030 Normal SP.GR. DIPSTX 1.010 LAB L400.3550 5.0 - 8.0 pH UR Normal 6.5 LAB L400.3600 Negative mg/dl PROT Normal DIPSTX Negative LAB L400.3700 Normal mg/dl Normal UROBILI Normal LAB L400.3750 Negative Normal NITRITE UR Negative LAB L400.3780 Negative /ul Normal OCCULT BLOOD-UR Negative LAB L400.3800 Negative /ul LEUK Normal ESTERASE Negative LAB L400.4050 0-5 /hpf WBC 0 Normal SEEN LAB L400.4100 0-5 /hpf 0 Normal RBC-UA SEEN LAB L400.4150 5-10 /hpf SQUAM Normal EPI 0-5 SEEN LAB L400.4300 None Seen /hpf Normal BACTERIA RARE LAB L400.4350 <or=2+ /hpf 0 Normal MUCUS, URINE SEEN Performed By: #### L400.0001 #### [facility] [address] [facility] [place], [address] BASIC METABOLIC Collected: 02/19/2018 Status: F Source: [facility] PROFILE (BMP) 10:12 AM REPOSITORY TYPE CODE TESTS RESULT OUT OF RANGE REFERENCE UNITS LAB L501.0100 74-106 mg/dL High GLU 385 Result Comment: Glucose result greater than or equal to 200 mg/dL suggests DIABETES MELLITUS per A.D.A. criteria. Please note revised GLUCOSE reference range effective 2017. LAB L501.1000 7-18 mg/dL Normal BUN 12 LAB L501.1100 0.55-1.02 mg/dL High CREAT,SERUM 1.07 Result Comment: The validity of the calculated GFR AND GFRAA in patients over 70 years has not been determined. Clinical correlation is essential. LAB L501.1110 >60 mL/min Low EST GFR 55 Result Comment: Non- GFR Calc LAB L501.1115 >60 mL/min Normal EST GFR - AA 67 Result Comment: GFR Calc LAB L501.1255 ml/min Normal Estimated CRCL 50.38 LAB L501.1300 10-20 RATIO Normal BUN/CRE 11.2 LAB L501.2200 8.5-10 mg/dL Normal .1 CA 8.9 LAB L501.5300 136-14 mmol/L Low 5 NA 133 LAB L501.5600 3.5-5. mmol/L Normal 1 K 4.2 LAB L501.5900 98-107 mmol/L Low CL 97 LAB L501.6100 21.0-3 mmol/L Normal 2.0 CO2 28.0 LAB L501.6200 5-15 Normal GAP 8 Performed By: #### L500.2500, L501.4010 #### [facility] [address] [place], [address] TROPONIN-I Collected: 02/19/2018 Status: F Source: [facility] 10:12 AM REPOSITORY TYPE CODE TESTS RESULT OUT OF RANGE REFERENCE UNITS LAB L501.4010 <0.045 ng/mL Normal < 0.015 TROPONIN-I Result Comment: TROPONIN-I EXPECTED VALUES <0.045 Negative 0.045 - 0.590 Consistent with Cardiac Damage > OR = 0.600 Critical Value Not every elevated troponin is indicative of VT. These values should be used with clinical judgement in examining the patient's clinical picture for diagnosis. To establish a diagnosis of VT versus myocardial injury, there must be a demonstrated rise and/or fall in the troponin values, in addition to ischemic symptoms, EKG changes, new regional wall motion abnormality, and/or angiographical evidence. PLEASE NOTE: REFERENCE RANGES EDITED 17 Performed By: #### L500.2500, L501.4010 #### [facility] [address] [place], [address] EMERGENCY DEPARTMENT Observed: 02/06/2018 Status: F Source: [place] SUMMARY 11:42 PM REPOSITORY [facility] Medical Records Department [address] [place] [address] Emergency Department Summary 02/05/18 1651 MR#: [id number] Acct: [id number] Name: CRYSTAL CRAMER Rep #: [id number] : 1955 62 From: Mansoor Haywood DO PCP: You Parks MD Status: DEP ER - ER Visit Summary Date of Service: 02/05/18 Chief Complaint: Nausea History of Present Illness: The patient is a 62 F who presents with nausea. Patient has extensive visits to the emergency department for the same. She states this episode started around noon. She was able to eat some breakfast. Patient is a diabetic as well as a patient who has fibromyalgia hypertension high cholesterol. No diarrhea. No fevers. Physical Examination: Afebrile vital signs are stable Gen: Well-nourished well-developed Head: Normocephalic atraumatic Eyes: Perrl EOMI ENT: TMs clear no rhinorrhea moist mucous membranes Neck: Supple no lymphadenopathy no JVD nontender CVS: Regular rate rhythm no murmurs normal S1-S2 Respiratory: No distress clear to auscultation bilaterally chest nontender Abdomen: Soft nontender nondistended normal bowel sounds no masses Back: Nontender Extremity: Nontender no edema Skin: Normal color no rash Neuro: alert orientated 3 CN II-XII intact normal strength sensation reflexes gait cerebellar Psych: Normal affect normal mood Test Results: Blood sugar 449. Emergency Department Course and Treatment: She received Phenergan and insulin. She required additional dosing of Phenergan and requested something for pain. She received [place] for which she has at home. Patient will be discharged home. I did contact case management to discuss care plan option for this patient. Impression: 1. Nausea 2. Diabetic hyperglycemia This note was generated with Instagram dictation software. It may contain incorrect words, spelling, and punctuation that were not noted in review of the chart prior to signing ED Disposition - Plan for ED Patient: Disposition: Home or Assisted Living Chief Complaint: Nausea/Vomiting Instructions: ED Nausea Vomiting Referrals: You Parks MD [Primary Care Provider] - Keep Suzette appointment What to do if you have Problems For any increased pain, shortness of breath, bleeding, nausea or vomiting, chest pain, or any unexpected problems, contact your Primary Care Provider. Call [facility] ([phone]) or report to the closest Emergency Room. Call 911 if necessary. 02/06/18 5485 <Electronically signed by Mansoor Haywood DO> Date Mansoor Haywood DO Cosigner Signature (If Indicated): Date CC: You Parks MD BEDSIDE GLUCOSE Collected: 02/05/2018 Status: F Source: [place] 5:07 PM REPOSITORY TYPE CODE TESTS RESULT OUT OF REFERENCE UNITS RANGE LAB L501.080 70-110 mg/dL High BEDSIDE GLU 279 Result Comment: MANAGEMENT OF PATIENT CARE PER NURSING PROTOCOL Performed By: #### L501.080 #### [facility] Point of Care [address] [place] [address] BEDSIDE GLUCOSE Collected: 02/05/2018 Status: F Source: [place] 3:21 PM REPOSITORY TYPE CODE TESTS RESULT OUT OF REFERENCE UNITS RANGE LAB L501.080 70-110 mg/dL High BEDSIDE GLU 449 Result Comment: MANAGEMENT OF PATIENT CARE PER NURSING PROTOCOL Performed By: #### L501.080 #### [facility] Point of Care [address] [place] [address] DOWNTIME REPORT Observed: 02/05/2018 Status: F Source: [place] 2:56 PM REPOSITORY [facility] Medical Records Department [address] [place] [address] Downtime Report MR#: [id number] Acct: [id number] Name: CRYSTAL CRAMER Rep #: [id number] : 1955 62 From: Fabby Mullen MD PCP: You Parks MD Status: DEP ER This patient was seen during an EMR downtime January 20, 2018 - January 27, 2018. This patient may have a combination of paper and electronic documentation or all paper documentation. All documentation is viewable within the e-chart portion of [employer] for each patient visit. BEDSIDE GLUCOSE Collected: 01/28/2018 Status: F Source: [place] 5:55 PM REPOSITORY TYPE CODE TESTS RESULT OUT OF REFERENCE UNITS RANGE LAB L501.080 70-110 mg/dL High BEDSIDE GLU 349 Result Comment: MANAGEMENT OF PATIENT CARE PER NURSING PROTOCOL Performed By: #### L501.080 #### [facility] Point of Care [address] [place] [address] EMERGENCY DEPARTMENT Observed: 01/28/2018 Status: F Source: [place] SUMMARY 5:13 PM REPOSITORY [facility] Medical Records Department [place] [address] Emergency Department Summary 01/28/18 1711 MR#: [id number] Acct: [id number] Name: CRYSTAL CRAMER Marissa Rep #: [id number] : 1955 62 From: Carlo Moffett MD PCP: You Parks MD Status: REG ER - ER Visit Summary Date of Service: 01/28/18 Chief Complaint: Vomiting History of Present Illness: The patient is a 62 F with a history of diabetes and gastroparesis who presents with nausea and vomiting. She reports that over the past week she has had one episode of nonbloody nonbilious emesis per day. This is a recurrent issue for the patient. She has multiple ER presentations for similar symptoms. She denies any abdominal pain or diarrhea. No fevers. Physical Examination: Afebrile vitals are notable for blood pressure 173/75 otherwise normal Moist mucous membranes Heart regular rate and rhythm Lungs clear Abdomen soft nontender nondistended Alert Test Results: Labs notable for white blood cell count 14.4. On review of prior labs she does appear to have a chronic leukocytosis. Her sodium is 130 glucose of 421 creatinine 1.21. Emergency Department Course and Treatment: Patient was treated with IV fluids. She was given Reglan. She did report some improvement but continued to complain of nausea and was given IV Phenergan with for improvement of symptoms. She was given subcutaneously spoke for her hyperglycemia. I do not see an indication for admission. Patient is comfortable with the plan for discharge and outpatient follow-up. Treatment Plan: [] Disposition: Discharge Impression: Gastroparesis This note was generated with Instagram dictation software. It may contain incorrect words, spelling, and punctuation that were not noted in review of the chart prior to signing ED Disposition - Plan for ED Patient: Chief Complaint: Nausea/Vomiting Referrals: You Parks MD [Primary Care Provider] - What to do if you have Problems For any increased pain, shortness of breath, bleeding, nausea or vomiting, chest pain, or any unexpected problems, contact your Primary Care Provider. Call [facility] ([phone]) or report to the closest Emergency Room. Call 911 if necessary. 01/28/18 2354 <Electronically signed by Carlo Moffett MD> Date Carlo Moffett MD Cosigner Signature (If Indicated): Date CC: You Parks MD DISCHARGE INSTRUCTION Observed: 01/28/2018 Status: F Source: [place] 5:13 PM [facility] REPOSITORY [facility] Medical Records Department [address] [place] [address] Discharge Instruction 01/28/181712 MR#: [id number] Acct: [id number] Name: CRYSTAL CRAMER Rep #: [id number] : 1955 62 From: Carlo Moffett MD PCP: You Parks MD Status: REG ER ED Disposition - Plan for ED Patient: Chief Complaint: Nausea/Vomiting Instructions: ED Diabetic Gastroparesis Referrals: You Parks MD [Primary Care Provider] - What to do if you have Problems For any increased pain, shortness of breath, bleeding, nausea or vomiting, chest pain, or any unexpected problems, contact your Primary Care Provider. Call [facility] ([phone]) or report to the closest Emergency Room. Call 911 if necessary. 01/28/181712 <Electronically signed by Carlo Moffett MD> Date Carlo Moffett MD Cosigner Signature (If Indicated): Date CC: You Parks MD CBC W/DIFF, AUTOMATED Collected: 01/28/2018 Status: F Source: [place] 3:35 PM REPOSITORY TYPE CODE TESTS RESULT OUT OF RANGE REFERENCE UNITS LAB L100.1000 4.4-11.0 K/mm3 High WBC 14.4 LAB L100.1200 4.2-5.4 M/mm3 Normal RBC 4.82 LAB L100.1300 12.0-15.0 g/dl Normal HGB 12.0 LAB L100.1400 37-47 % Low HCT 36.9 LAB L100.1500 81-99 fL Low MCV 76.6 LAB L100.1600 27.0-32.0 pg Low MCH 24.9 LAB L100.1700 32-36 g/gl Normal MCHC 32.5 LAB L100.1810 11.6-14.6 % High RDW CV 15.4 LAB L100.1820 35.1-43.9 fl Normal RDW SD 42.0 LAB L100.1900 150-450 K/mm3 Normal PLT 340 LAB L100.2000 6.2-12.0 fl Normal MPV 9.5 LAB L100.2100 47-70 % High NEUT% 75.6 LAB L100.2200 19-41 % Low LY% 13.9 LAB L100.2300 0-10 % Normal MONO% 7.6 LAB L100.2400 0-5 % Normal EO% 2.4 LAB L100.2500 0-1 % Normal BASO% 0.3 LAB L100.2550 0.0-0.9 % Normal IM GRAN % 0.200 Result Comment: IG% - Immature Granulocytes (promyelocytes, myelocytes and metamyelocytes) > 1% indicates that a LEFT SHIFT is Present. LAB L100.2620 2.0-7.7 X10 3/uL High Absolute Neut 10.8 LAB L100.2720 0.83-4.51 X10 3/ul Normal Absolute Lymph 1.99 Performed By: #### L100.0100 #### [facility] [address] [place], [place], [id number] BASIC METABOLIC Collected: 01/28/2018 Status: F Source: [place] PROFILE (BMP) 3:35 PM REPOSITORY TYPE CODE TESTS RESULT OUT OF RANGE REFERENCE UNITS LAB L501.0100 74-106 mg/dL High GLU 421 Result Comment: Glucose result greater than or equal to 200 mg/dL suggests DIABETES MELLITUS per A.D.A. criteria. Please note revised GLUCOSE reference range effective 2017. LAB L501.1000 7-18 mg/dL Normal BUN 16 LAB L501.1100 0.55-1.02 mg/dL High CREAT,SERUM 1.21 Result Comment: The validity of the calculated GFR AND GFRAA in patients over 70 years has not been determined. Clinical correlation is essential. LAB L501.1110 >60 mL/min Low EST GFR 48 Result Comment: Non- GFR Calc LAB L501.1115 >60 mL/min Low EST GFR - AA 58 Result Comment: GFR Calc LAB L501.1300 10-20 RATIO Normal BUN/CRE 13.2 LAB L501.2200 8.5-10.1 mg/dL CA Normal 9.0 LAB L501.5300 136-145 mmol/L Low NA 130 LAB L501.5600 3.5-5.1 mmol/L K Normal 4.6 Result Comment: Slight Hemolysis, Result may be falsely increased. LAB L501.5900 98-107 mmol/L Low CL 96 LAB L501.6100 21.0-32.0 mmol/L Normal CO2 28.0 LAB L501.6200 5-15 Normal GAP 6 Performed By: #### L500.2500 #### [facility] [address] [place], [address] BASIC METABOLIC Collected: 01/22/2018 Status: F Source: [place] PROFILE (BMP) 12:00 AM REPOSITORY Order Comment: RESULT(S) PREVIOUSLY REPORTED ON MANUAL REQUISITION DURING DOWNTIME. TYPE CODE TESTS RESULT OUT OF RANGE REFERENCE UNITS LAB L501.0100 74-106 mg/dL High GLU 154 Result Comment: Fasting Glucose result greater than or equal to 126 mg/dL suggests DIABETES MELLITUS per A.D.A. criteria. Please note revised GLUCOSE reference range effective 2017. LAB L501.1000 7-18 mg/dL Normal BUN 9 LAB L501.1100 0.55-1.02 mg/dL Normal CREAT,SERUM 0.84 Result Comment: The validity of the calculated GFR AND GFRAA in patients over 70 years has not been determined. Clinical correlation is essential. LAB L501.1110 >60 mL/min Normal EST GFR 73 LAB L501.1115 >60 mL/min Normal EST GFR - AA 88 LAB L501.1300 10-20 RATIO Normal BUN/CRE 10.7 LAB L501.2200 8.5-10.1 mg/dL Normal CA 8.9 LAB L501.5300 136-145 mmol/L Normal NA 140 LAB L501.5600 3.5-5.1 mmol/L Normal K 4.0 LAB L501.5900 98-107 mmol/L Normal CL 103 LAB L501.6100 21.0-32.0 mmol/L Normal CO2 30.0 LAB L501.6200 5-15 Normal GAP 7 Performed By: #### L500.2500 #### [facility] [address] [place], [address] EMERGENCY DEPARTMENT Observed: 01/17/2018 Status: F Source: [place] SUMMARY 12:19 AM REPOSITORY [facility] Medical Records Department [address] [place] [address] Emergency Department Summary 01/16/18 2246 MR#: [id number] Acct: [id number] Name: CRYSTAL CRAMER Rep #: [id number] : 1955 62 From: Marcus Mortensen PCP: You Parks MD Status: REG ER - ER Visit Summary Date of Service: 01/16/18 Chief Complaint: Nausea and vomiting History of Present Illness: The patient is a 62 F nausea vomiting restarted today, total to 2 episodes, last one 5 minutes prior to arrival. History of diabetic gastroparesis. Seen 4 days ago for similar. States she has Phenergan and Reglan at home, last dose was 5 hours ago with no relief. Last bowel movement was at 5 PM after supper. Positive flatus. Denies abdominal pain. Complains of sweats, no fevers or chills. No chest pains or shortness of breath. She has been a diabetic for last 10 years. History of similar symptoms in the past. Physical Examination: General: Alert and oriented 3, no acute distress HEENT: Normocephalic, atraumatic. Moist mucosa membranes Neck: supple, nontender. Cardiovascular: Regular rate and rhythm, no murmurs Respiratory: Normal breath sounds, symmetric, no distress Abdomen: Soft, nontender, nondistended Extremities: Nontender, no edema, pulses intact 4 Neuro: no focal neurological deficits. Test Results: Blood glucose 249. BMP glucose 241, anion gap of 9. Creatinine 0.98. Emergency Department Course and Treatment: Patient nontender abdomen. Moist mucosa membranes. Electrolytes obtain normal periods given fluids, Reglan. Reevaluation still nausea, no vomiting. Haldol and Zofran given. Symptoms improved. Blood pressure elevated on arrival rechecked improved. She is on medications. Patient did not want to try p.o. fluids in ED stating that it will stay down. She does have suppository Phenergan at home. Patient will be discharged with outpatient follow-up, discussed return if any worsening symptoms. All questions were answered. Treatment Plan: [] Disposition: Discharge Impression: 1. Nausea and vomiting with history of gastroparesis This note was generated with Instagram dictation software. It may contain incorrect words, spelling, and punctuation that were not noted in review of the chart prior to signing ED Disposition - Plan for ED Patient: Disposition: Home or Assisted Living Chief Complaint: Nausea/Vomiting Diagnosis: Nausea AND vomiting, History of diabetic gastroparesis Instructions: ED Diet Vomiting Diarrhea Referrals: You Parks MD [Primary Care Provider] - 3-5 Days What to do if you have Problems For any increased pain, shortness of breath, bleeding, nausea or vomiting, chest pain, or any unexpected problems, contact your Primary Care Provider. Call [facility] ([phone]) or report to the closest Emergency Room. Call 911 if necessary. 01/17/18 0019 <Electronically signed by Marcus Mortensen> Date Marcus Mortensen Cosigner Signature (If Indicated): Date CC: You Parks MD BASIC METABOLIC Collected: 01/16/2018 Status: F Source: [place] PROFILE (BMP) 11:00 PM REPOSITORY TYPE CODE TESTS RESULT OUT OF RANGE REFERENCE UNITS LAB L501.0100 74-106 mg/dL High GLU 241 Result Comment: Glucose result greater than or equal to 200 mg/dL suggests DIABETES MELLITUS per A.D.A. criteria. Please note revised GLUCOSE reference range effective 2017. LAB L501.1000 7-18 mg/dL Normal BUN 7 LAB L501.1100 0.55-1.02 mg/dL Normal CREAT,SERUM 0.98 Result Comment: The validity of the calculated GFR AND GFRAA in patients over 70 years has not been determined. Clinical correlation is essential. LAB L501.1110 >60 mL/min Normal EST GFR 61 Result Comment: Non- GFR Calc LAB L501.1115 >60 mL/min Normal EST GFR - AA 73 Result Comment: GFR Calc LAB L501.1255 ml/min Normal Estimated CRCL 55.01 LAB L501.1300 10-20 RATIO Low BUN/CRE 7.1 LAB L501.2200 8.5-10 mg/dL Normal .1 CA 9.2 LAB L501.5300 136-14 mmol/L Low 5 NA 135 LAB L501.5600 3.5-5. mmol/L Normal 1 K 4.0 Result Comment: Slight Hemolysis, Result may be falsely increased. LAB L501.5900 98-107 mmol/L Normal CL 101 LAB L501.6100 21.0-32.0 mmol/L Normal CO2 25.0 LAB L501.6200 5-15 Normal 9 GAP Performed By: #### L500.2500 #### [facility] [address] [place], [address] BEDSIDE GLUCOSE Collected: 01/16/2018 Status: F Source: [place] 10:41 PM REPOSITORY TYPE CODE TESTS RESULT OUT OF REFERENCE UNITS RANGE LAB L501.080 70-110 mg/dL High BEDSIDE GLU 249 Result Comment: MANAGEMENT OF PATIENT CARE PER NURSING PROTOCOL Performed By: #### L501.080 #### [facility] Point of Care [address] [place] [address] EMERGENCY DEPARTMENT Observed: 01/12/2018 Status: F Source: [place] SUMMARY 5:23 PM REPOSITORY [facility] Medical Records Department [address] [place] [address] Emergency Department Summary 01/12/18 1435 MR#: [id number] Acct: [id number] Name: CRYSTAL CRAMER Rep #: [id number] : 1955 62 From: Shreyas Mary MD PCP: You Parks MD Status: REG ER History of Present Illness Chief Complaint: Nausea/Vomiting Informant: Patient Onset: Weeks - 2 Context: Gradual Onset Timing: Continuous Quality: non bilious, nonbloody emesis Current Severity: Moderate Maximum Severity: Moderate Relieved by: reglan last night when in ED Associated Symptoms: malaise. no pain, diarrhea, blood, pre-syncope Narrative: Has this intermittently with her diabetic gastroparesis. Was here last night for the same thing and felt better after Zofran and Reglan, but it returned when the medication were off and she has had trouble keeping down oral liquids since. She states none of these symptoms are new. Blood sugars have been in the 400 range. She does not recall getting treated for it last night other than fluids. Prior similar symptoms: Yes - Past Medical History (1) Benign essential HTN Status: Chronic (2) DM2 (diabetes mellitus, type 2) Status: Chronic (3) Depression Status: Chronic (4) Diverticulosis Status: Chronic (5) GERD (gastroesophageal reflux disease) Status: Chronic (6) HLD (hyperlipidemia) Status: Chronic (7) History of CVA (cerebrovascular accident) Status: Chronic (8) Hyperuricemia Status: Chronic (9) Iron deficiency anemia Status: Chronic (10) Migraine headache Status: Chronic (11) Paroxysmal atrial fibrillation Status: Chronic (12) Restless leg Status: Chronic (13) Takotsubo cardiomyopathy Status: Chronic (14) Seizure disorder Status: Chronic (15) Fibromyalgia Status: Chronic (16) Diabetic gastroparesis Status: Chronic Past Medical History - Allergies and Home Meds Allergies/Adverse Reactions: Allergies ciprofloxacin [From Cipro] Allergy (Verified 01/11/18 23:07) Shortness of breath ciprofloxacin HCl [From Cipro] Allergy (Verified 01/11/18 23:07) Shortness of breath cyclobenzaprine HCl [From Flexeril] Allergy (Verified 01/11/18 23:07) Rash ketorolac tromethamine [From Toradol] Allergy (Verified 01/11/18 23:07) Chest tightness sulfamethoxazole [From Bactrim] Allergy (Verified 01/11/18 23:07) Itching trimethoprim [From Bactrim] Allergy (Verified 01/11/18 23:07) Itching metformin Adverse Reaction (Verified 01/11/18 23:07) Other headache valacyclovir HCl [From Valtrex] Adverse Reaction (Verified 01/11/18 23:07) Other Home Medications: Home Medications Medication Instructions Recorded Allopurinol [Zyloprim] 100 mg PO DAILYCM 05/07/16 Aspirin [Aspirin, Baby] 81 mg PO DAILY 05/07/16 Primary Care Physician: You Parks MD [Primary Care Provider] - Surgical History: appendectomy, cholecystectomy Smoking Status: Never smoker - Family History Paternal Family History: Reports: Heart Disease, - - Bone cancer Maternal Family History: Reports: COPD, Diabetes, Heart Disease, - - Smoker Review of Systems All systems negative except as indicated General: Reports: Malaise. Denies: Fever Gastrointestinal: Reports: Nausea, Vomiting. Denies: Abdominal pain, Diarrhea, Melena, Hematochezia Physical Exam Vital Signs/Narrative: Vital Signs 01/12/18 13:21 97.5 F L 85 16 177/84 H 95 Inital Vital Signs reviewed: Yes General: Well nourished, Well developed, Obese, - - nad Head: Normocephalic, Atraumatic Eyes: Perrl, EOMI ENT: Moist mucous membranes, No rhinorrhea Neck: Supple, Nontender Cardiovascular: Regular rate, Regular rhythm, No murmurs Respiratory: No distress, CTA bilaterally, Chest nontender Abdomen: Soft, Nontender, Nondistended, Hypoactive bowel sounds Extremities: Nontender, No edema Skin: Normal color, No rash Neurological: Alert, Oriented x3, Cranial nerves II-XII grossly intact, Normal Strength, Normal Sensation Psychological: Normal affect Diagnostic/Tx/Re-eval Laboratory Tests WBC 13.2 H RBC 4.92 Hgb 12.1 Hct 38.2 MCV 77.6 L MCH 24.6 L MCHC 31.7 L RDW 15.8 H - Medical Decision Making Patient was initially given IV fluids and Reglan, she felt a little better but like she could use more antinausea medicine. Therefore, she was given Haldol, Ativan, Zofran. She feels better like she could keep some fluids down. She is given a p.o. fluid challenge and is requesting a prescription for Reglan to use as needed at home which I think is reasonable. She has a long-standing history of diabetic gastroparesis that causes the symptoms, her labs today look reasonable, she has a mild nonspecific leukocytosis that is improved compared with before, this past week, and her blood sugars 107 with normal renal function in the electronic disturbance. ED Disposition - Plan for ED Patient: Disposition: Home or Assisted Living Chief Complaint: Nausea/Vomiting Diagnosis: Diabetic gastroparesis, Vomiting with nausea, not intractable Instructions: ED Nausea Vomiting Prescriptions: Metoclopramide [Reglan] 10 mg PO 4X/DAY PRN #20 tab PRN Reason: Nausea Referrals: You Parks MD [Primary Care Provider] - 3-5 Days if not improving What to do if you have Problems For any increased pain, shortness of breath, bleeding, nausea or vomiting, chest pain, or any unexpected problems, contact your Primary Care Provider. Call [facility] ([phone]) or report to the closest Emergency Room. Call 911 if necessary. 01/12/18 1723 <Electronically signed by Shreyas Mary MD> Date Shreyas Mary MD Cosigner Signature (If Indicated): Date CC: You Parks MD BASIC METABOLIC Collected: 01/12/2018 Status: F Source: [place] PROFILE (BMP) 3:20 PM REPOSITORY TYPE CODE TESTS RESULT OUT OF RANGE REFERENCE UNITS LAB L501.0100 74-106 mg/dL High GLU 170 Result Comment: Fasting Glucose result greater than or equal to 126 mg/dL suggests DIABETES MELLITUS per A.D.A. criteria. Please note revised GLUCOSE reference range effective 2017. LAB L501.1000 7-18 mg/dL Normal BUN 10 LAB L501.1100 0.55-1.02 mg/dL High CREAT,SERUM 1.06 Result Comment: The validity of the calculated GFR AND GFRAA in patients over 70 years has not been determined. Clinical correlation is essential. LAB L501.1110 >60 mL/min Low EST GFR 56 Result Comment: Non- GFR Calc LAB L501.1115 >60 mL/min Normal EST GFR - AA 67 Result Comment: GFR Calc LAB L501.1255 ml/min Normal Estimated CRCL 50.85 LAB L501.1300 10-20 RATIO Low BUN/CRE 9.4 LAB L501.2200 8.5-10 mg/dL Normal .1 CA 9.4 LAB L501.5300 136-14 mmol/L Normal 5 NA 138 LAB L501.5600 3.5-5. mmol/L Normal 1 K 4.1 LAB L501.5900 98-107 mmol/L Normal CL 102 LAB L501.6100 21.0-3 mmol/L Normal 2.0 CO2 30.0 LAB L501.6200 5-15 Normal GAP 6 Performed By: #### L500.2500 #### [facility] [address] [place], [place], [address] CBC W/DIFF, AUTOMATED Collected: 01/12/2018 Status: F Source: [place] 3:20 PM REPOSITORY TYPE CODE TESTS RESULT OUT OF RANGE REFERENCE UNITS LAB L100.1000 4.4-11.0 K/mm3 High WBC 13.2 LAB L100.1200 4.2-5.4 M/mm3 Normal RBC 4.92 LAB L100.1300 12.0-15.0 g/dl Normal HGB 12.1 LAB L100.1400 37-47 % Normal HCT 38.2 LAB L100.1500 81-99 fL Low MCV 77.6 LAB L100.1600 27.0-32.0 pg Low MCH 24.6 LAB L100.1700 32-36 g/gl Low MCHC 31.7 LAB L100.1810 11.6-14.6 % High RDW CV 15.8 LAB L100.1820 35.1-43.9 fl High RDW SD 44.4 LAB L100.1900 150-450 K/mm3 Normal PLT 335 LAB L100.2000 6.2-12.0 fl Normal MPV 9.4 LAB L100.2100 47-70 % High NEUT% 75.7 LAB L100.2200 19-41 % Low LY% 16.3 LAB L100.2300 0-10 % Normal MONO% 5.4 LAB L100.2400 0-5 % Normal EO% 1.9 LAB L100.2500 0-1 % Normal BASO% 0.3 LAB L100.2550 0.0-0.9 % Normal IM GRAN % 0.400 Result Comment: IG% - Immature Granulocytes (promyelocytes, myelocytes and metamyelocytes) > 1% indicates that a LEFT SHIFT is Present. LAB L100.2620 2.0-7.7 X10 3/uL High Absolute Neut 10.0 LAB L100.2720 0.83-4.51 X10 3/ul Normal Absolute Lymph 2.16 Performed By: #### L100.0100 #### [facility] [address] [place], [address] EMERGENCY DEPARTMENT Observed: 01/12/2018 Status: F Source: [place] [facility] 1:50 AM REPOSITORY [facility] Medical Records Department [address] [place] [address] Emergency Department Summary 01/11/18 2327 MR#: [id number] Acct: [id number] Name: CRYSTAL CRAMER Rep #: [id number] : 1955 62 From: Sarah Khan DO PCP: You Parks MD Status: DEP ER - ER Visit Summary Date of Service: 01/11/18 Chief Complaint: [] Nausea and vomiting History of Present Illness: The patient is a 62 F [] presents with nausea and vomiting beginning approximately 2 weeks ago. She reports is her fourth visit to this emergency department in the last 2 weeks for similar symptoms secondary to gastroparesis. She reports Reglan is the medication that helps her symptoms the most. Does report she has a history of diabetes hypertension, hypercholesteremia and fibromyalgia. Past surgical history of appendectomy, cholecystectomy. Reports her symptoms are consistent with previous bouts of gastroparesis. Denies hematemesis or fever. Physical Examination: [] Afebrile, vital signs stable. 62-year-old female in no acute distress. Cardiovascular exam is regular rate and rhythm. Lungs are clear to auscultation. Abdomen is soft and nontender. Test Results: [] CBC reveals elevated white blood cell count 16.8. BMP normal. LFTs normal. Alk phos mildly elevated 188. Emergency Department Course and Treatment: [] Patient given intravenous fluids, Reglan, Zofran. On serial exam she had resolution of symptoms and was amenable to discharge and follow-up. Treatment Plan: [] Follow-up with PCP. Disposition: [] Discharge, stable. Impression: [] Gastroparesis This note was generated with Connectipityation software. It may contain incorrect words, spelling, and punctuation that were not noted in review of the chart prior to signing ED Disposition - Plan for ED Patient: Chief Complaint: Nausea/Vomiting Referrals: You Parks MD [Primary Care Provider] - What to do if you have Problems For any increased pain, shortness of breath, bleeding, nausea or vomiting, chest pain, or any unexpected problems, contact your Primary Care Provider. Call [facility] ([phone]) or report to the closest Emergency Room. Call 911 if necessary. 01/12/18 0150 <Electronically signed by Sarah Khan DO> Date Sarah Khan DO Cosigner Signature (If Indicated): Date CC: You Parks MD DISCHARGE INSTRUCTION Observed: 01/12/2018 Status: F Source: [place] 1:17 AM REPOSITORY [facility] Medical Records Department [address] [place] [address] Discharge Instruction 01/12/18 0117 MR#: [id number] Acct: [id number] Name: CRYSTAL CRAMER Rep #: [id number] : 1955 62 From: Saarh Khan DO PCP: You Parks MD Status: REG ER ED Disposition - Plan for ED Patient: Disposition: Home or Assisted Living Chief Complaint: Nausea/Vomiting Instructions: ED Diabetic Gastroparesis Referrals: Yuo Parks MD [Primary Care Provider] - What to do if you have Problems For any increased pain, shortness of breath, bleeding, nausea or vomiting, chest pain, or any unexpected problems, contact your Primary Care Provider. Call [facility] ([phone]) or report to the closest Emergency Room. Call 911 if necessary. 01/12/18 0117 <Electronically signed by Sarah Khan DO> Date Sarah Khan DO Cosigner Signature (If Indicated): Date CC: You Parks MD CBC W/DIFF, AUTOMATED Collected: 01/11/2018 Status: F Source: [place] 11:55 PM REPOSITORY TYPE CODE TESTS RESULT OUT OF RANGE REFERENCE UNITS LAB L100.1000 4.4-11.0 K/mm3 High WBC 16.8 LAB L100.1200 4.2-5.4 M/mm3 Normal RBC 5.06 LAB L100.1300 12.0-15.0 g/dl Normal HGB 12.6 LAB L100.1400 37-47 % Normal HCT 39.0 LAB L100.1500 81-99 fL Low MCV 77.1 LAB L100.1600 27.0-32.0 pg Low MCH 24.9 LAB L100.1700 32-36 g/gl Normal MCHC 32.3 LAB L100.1810 11.6-14.6 % High RDW CV 15.9 LAB L100.1820 35.1-43.9 fl High RDW SD 44.1 LAB L100.1900 150-450 K/mm3 Normal PLT 337 LAB L100.2000 6.2-12.0 fl Normal MPV 9.3 LAB L100.2100 47-70 % High NEUT% 72.9 LAB L100.2200 19-41 % Low LY% 17.1 LAB L100.2300 0-10 % Normal MONO% 7.3 LAB L100.2400 0-5 % Normal EO% 2.2 LAB L100.2500 0-1 % Normal BASO% 0.2 LAB L100.2550 0.0-0.9 % Normal IM GRAN % 0.300 Result Comment: IG% - Immature Granulocytes (promyelocytes, myelocytes and metamyelocytes) > 1% indicates that a LEFT SHIFT is Present. LAB L100.2620 2.0-7.7 X10 3/uL High Absolute Neut 12.3 LAB L100.2720 0.83-4.51 X10 3/ul Normal Absolute Lymph 2.88 Performed By: #### L100.0100 #### [facility] [address] [place], [address] COMPREHENSIVE METABOLIC Collected: 01/11/2018 Status: F Source: [facility] 11:55 PM REPOSITORY TYPE CODE TESTS RESULT OUT OF RANGE REFERENCE UNITS LAB L501.0100 74-106 mg/dL High GLU 140 Result Comment: Fasting Glucose result greater than or equal to 126 mg/dL suggests DIABETES MELLITUS per A.D.A. criteria. Please note revised GLUCOSE reference range effective 2017. LAB L501.1000 7-18 mg/dL Normal BUN 9 LAB L501.1100 0.55-1.02 mg/dL High CREAT,SERUM 1.03 Result Comment: The validity of the calculated GFR AND GFRAA in patients over 70 years has not been determined. Clinical correlation is essential. LAB L501.1110 >60 mL/min Low EST GFR 58 Result Comment: Non- GFR Calc LAB L501.1115 >60 mL/min Normal EST GFR - AA 70 Result Comment: GFR Calc LAB L501.1255 ml/min Normal Estimated CRCL 52.34 LAB L501.1300 10-20 RATIO Low BUN/CRE 8.7 LAB L501.1500 6.4-8. g/dL Normal 2 T PROT 7.6 LAB L501.1800 3.2-5. g/dL Normal 0 ALB 3.3 LAB L501.1950 2.2-4. g/dL High 2 GLOB 4.3 LAB L501.2000 0.9-2. RATIO Low 4 A/G 0.8 LAB L501.2200 8.5-10 mg/dL Normal .1 CA 9.3 LAB L501.4100 15-37 U/L High AST 43 LAB L501.4305 45-117 U/L High ALK P 188 LAB L501.4405 13-56 U/L Normal ALT 35 LAB L501.4600 0.20-1 mg/dL Normal .00 T BILI 0.50 LAB L501.5300 136-14 mmol/L Normal 5 NA 137 LAB L501.5600 3.5-5. mmol/L Normal 1 K 3.6 LAB L501.5900 98-107 mmol/L Normal CL 102 LAB L501.6100 21.0-3 mmol/L Normal 2.0 CO2 27.0 LAB L501.6200 5-15 Normal GAP 8 Performed By: #### L500.4050 #### [facility] [address] [place], [address] EMERGENCY DEPARTMENT Observed: 01/09/2018 Status: F Source: [place] SUMMARY 7:15 PM REPOSITORY [facility] Medical Records Department [address] [place] [address] Emergency Department Summary 01/09/18 1708 MR#: [id number] Acct: [id number] Name: CRYSTAL CRAMER Rep #: [id number] : 1955 62 From: Bebeto Lugo DO PCP: You Parks MD Status: REG ER - ER Visit Summary Date of Service: 01/09/18 Chief Complaint: Nausea and vomiting History of Present Illness: The patient is a 62 F who presents with nausea and vomiting for the past 2 weeks. Patient states she has been seen here twice in the past 2 weeks for this. Patient states her primary care physician and allergist/immunologist are evaluating her for possible gastroparesis and/or an autoimmune disorder. Patient denies any hematemesis or coffee-ground emesis. Patient states her emesis is just stomach contents. Patient denies any diarrhea, melena, or hematochezia. Patient denies any dysuria hematuria. Patient denies any abdominal pain. Patient denies any flank pain. Physical Examination: Vital signs showed an elevated blood pressure of 201/108 and a mild tachycardia of 105. Remaining vital signs are stable. Patient is afebrile. Patient is in no acute distress. Oral mucosa is pink and slightly dry. Heart was regular rate and rhythm. Lungs are clear and equal bilaterally. There is good respiratory effort noted. Neck is supple. There is no JVD or lymphadenopathy noted. Abdomen is soft. Bowel sounds are normal. There is no tenderness. There is no guarding or rebound noted. Cranial nerves II through XII are intact. There are no focal motor or sensory deficits noted. The remaining physical exam is within normal limits. Test Results: CBC showed a mild leukocytosis of 15.1. This is likely due to the vomiting. Metabolic profile was essentially within normal limits. Urinalysis does not show any evidence of urinary tract infection. Emergency Department Course and Treatment: Patient was given a dose of Zofran here. Patient had no improvement with this. Patient was given a dose of Phenergan. Patient had mild improvement of her symptoms. Patient was given a repeat dose of Phenergan. Patient states she has Phenergan tablets and Phenergan suppositories at home. Patient was instructed to continue this. Patient was instructed to follow-up with her primary care physician and allergist/immunologist as scheduled. Patient understood and was agreeable with the plan. All questions were answered. Disposition: Discharged home Impression: Nausea and vomiting This note was generated with Instagram dictation software. It may contain incorrect words, spelling, and punctuation that were not noted in review of the chart prior to signing ED Disposition - Plan for ED Patient: Disposition: Home or Assisted Living Chief Complaint: Nausea/Vomiting Diagnosis: Nausea and vomiting in adult Instructions: ED Nausea Vomiting Referrals: You Parks MD [Primary Care Provider] - What to do if you have Problems For any increased pain, shortness of breath, bleeding, nausea or vomiting, chest pain, or any unexpected problems, contact your Primary Care Provider. Call [facility] ([phone]) or report to the closest Emergency Room. Call 911 if necessary. 01/09/18 052 <Electronically signed by Bebeto Lugo DO> Date Bebeto Lugo DO Cosigner Signature (If Indicated): Date CC: You Parks MD URINALYSIS, COMPLETE Collected: 01/09/2018 Status: F Source: [facility] 4:58 PM REPOSITORY Order Comment: How was Urine Obtained? SLAB LIFTING SUPERVISOR TO SPECIFY TYPE CODE TESTS RESULT OUT OF RANGE REFERENCE UNITS LAB L400.3000 Yellow COLOR Normal Yellow LAB L400.3050 Clear Normal CLARITY Sl. Cloudy LAB L400.3200 Normal mg/dl High GLUCOSE, UR 250 LAB L400.3300 Negative mg/dL Normal BILIRUBIN URINE Negative LAB L400.3400 Negative mg/dl Normal KETONE UR Negative LAB L400.3465 1.002-1.030 Normal SP.GR. DIPSTX 1.010 LAB L400.3550 5.0 - 8.0 pH UR Normal 7.0 LAB L400.3600 Negative mg/dl High PROT 15 DIPSTX LAB L400.3700 Normal mg/dl Normal UROBILI Normal LAB L400.3750 Negative Normal NITRITE UR Negative LAB L400.3780 Negative /ul Normal OCCULT BLOOD-UR Negative LAB L400.3800 Negative /ul LEUK Normal ESTERASE Negative LAB L400.4050 0-5 /hpf WBC 0 Normal SEEN LAB L400.4100 0-5 /hpf 0 Normal RBC-UA SEEN LAB L400.4150 5-10 /hpf SQUAM Normal EPI 0-5 SEEN LAB L400.4300 None Seen /hpf 0 Normal BACTERIA SEEN LAB L400.4350 <or=2+ /hpf 0 Normal MUCUS, URINE SEEN Performed By: #### L400.0001 #### [facility] [address] [place], [place], [address] CBC W/DIFF, AUTOMATED Collected: 01/09/2018 Status: F Source: [place] 4:17 PM REPOSITORY TYPE CODE TESTS RESULT OUT OF RANGE REFERENCE UNITS LAB L100.1000 4.4-11.0 K/mm3 High WBC 15.2 LAB L100.1200 4.2-5.4 M/mm3 Normal RBC 4.86 LAB L100.1300 12.0-15.0 g/dl Low HGB 11.8 LAB L100.1400 37-47 % Normal HCT 37.5 LAB L100.1500 81-99 fL Low MCV 77.2 LAB L100.1600 27.0-32.0 pg Low MCH 24.3 LAB L100.1700 32-36 g/gl Low MCHC 31.5 LAB L100.1810 11.6-14.6 % High RDW CV 15.7 LAB L100.1820 35.1-43.9 fl Normal RDW SD 43.8 LAB L100.1900 150-450 K/mm3 Normal PLT 350 LAB L100.2000 6.2-12.0 fl Normal MPV 9.2 LAB L100.2100 47-70 % High NEUT% 77.8 LAB L100.2200 19-41 % Low LY% 13.6 LAB L100.2300 0-10 % Normal MONO% 6.1 LAB L100.2400 0-5 % Normal EO% 2.0 LAB L100.2500 0-1 % Normal BASO% 0.3 LAB L100.2550 0.0-0.9 % Normal IM GRAN % 0.200 Result Comment: IG% - Immature Granulocytes (promyelocytes, myelocytes and metamyelocytes) > 1% indicates that a LEFT SHIFT is Present. LAB L100.2620 2.0-7.7 X10 3/uL High Absolute Neut 11.8 LAB L100.2720 0.83-4.51 X10 3/ul Normal Absolute Lymph 2.07 Performed By: #### L100.0100 #### [facility] [address] [place], [address] COMPREHENSIVE METABOLIC Collected: 01/09/2018 Status: F Source: [facility] 4:17 PM REPOSITORY TYPE CODE TESTS RESULT OUT OF RANGE REFERENCE UNITS LAB L501.0100 74-106 mg/dL High GLU 292 Result Comment: Glucose result greater than or equal to 200 mg/dL suggests DIABETES MELLITUS per A.D.A. criteria. Please note revised GLUCOSE reference range effective 2017. LAB L501.1000 7-18 mg/dL Normal BUN 9 LAB L501.1100 0.55-1.02 mg/dL High CREAT,SERUM 1.12 Result Comment: The validity of the calculated GFR AND GFRAA in patients over 70 years has not been determined. Clinical correlation is essential. LAB L501.1110 >60 mL/min Low EST GFR 52 Result Comment: Non- GFR Calc LAB L501.1115 >60 mL/min Normal EST GFR - AA 63 Result Comment: GFR Calc LAB L501.1255 ml/min Normal Estimated CRCL 48.13 LAB L501.1300 10-20 RATIO Low BUN/CRE 8.0 LAB L501.1500 6.4-8. g/dL Normal 2 T PROT 7.4 LAB L501.1800 3.2-5. g/dL Normal 0 ALB 3.3 LAB L501.1950 2.2-4. g/dL Normal 2 GLOB 4.1 LAB L501.2000 0.9-2. RATIO Low 4 A/G 0.8 LAB L501.2200 8.5-10 mg/dL Normal .1 CA 9.1 LAB L501.4100 15-37 U/L High AST 45 LAB L501.4305 45-117 U/L High ALK P 203 LAB L501.4405 13-56 U/L Normal ALT 37 LAB L501.4600 0.20-1 mg/dL Normal .00 T BILI 0.50 LAB L501.5300 136-14 mmol/L Normal 5 NA 137 LAB L501.5600 3.5-5. mmol/L Normal 1 K 4.2 LAB L501.5900 98-107 mmol/L Normal CL 100 LAB L501.6100 21.0-3 mmol/L Normal 2.0 CO2 28.0 LAB L501.6200 5-15 Normal GAP 9 Performed By: #### L500.4050, L501.2400 #### [facility] [address] [place], [address] AMYLASE Collected: 01/09/2018 Status: F Source: [place] 4:17 PM REPOSITORY TYPE CODE TESTS RESULT OUT OF RANGE REFERENCE UNITS LAB L501.2400 25-115 U/L Low KAMRON 13 Performed By: #### L500.4050, L501.2400 #### [facility] [address] [place], [address] EMERGENCY DEPARTMENT Observed: 01/08/2018 Status: F Source: [place] SUMMARY 8:27 AM REPOSITORY [facility] Medical Records Department [address] [place] [address] Emergency Department Summary 01/07/18 1223 MR#: [id number] Acct: [id number] Name: CRYSTAL CRAMER Rep #: [id number] : 1955 62 From: Mansoor Haywood DO PCP: oYu Parks MD Status: DEP ER - ER Visit Summary Date of Service: 01/07/18 Chief Complaint: Vomiting History of Present Illness: The patient is a 62 F is a history of gastroparesis as well as numerous emergency department visits for vomiting. She states this particular episode began last evening. She has been trying her oral home Phenergan. This has not been helpful. No fevers. Physical Examination: Afebrile vital signs are stable Gen: Well-nourished well-developed Head: Normocephalic atraumatic Eyes: Perrl EOMI ENT: TMs clear no rhinorrhea moist mucous membranes Neck: Supple no lymphadenopathy no JVD nontender CVS: Regular rate rhythm no murmurs normal S1-S2 Respiratory: No distress clear to auscultation bilaterally chest nontender Abdomen: Soft with tenderness to palpation without guarding or rebound nondistended normal bowel sounds no masses Back: Nontender Extremity: Nontender no edema Skin: Normal color no rash Neuro: alert orientated 3 CN II-XII intact normal strength sensation reflexes gait cerebellar Psych: Normal affect normal mood Test Results: A 6 labs showed a creatinine 1.15. White count 10.7. Lipase 123. Emergency Department Course and Treatment: She received IV fluids and Reglan. She complained of some continued nausea received Phenergan. She states after that she is feels much improved. Patient to be discharged home to continue her chronic therapy Impression: 1. Gastroparesis 2. Vomiting This note was generated with Instagram dictation software. It may contain incorrect words, spelling, and punctuation that were not noted in review of the chart prior to signing ED Disposition - Plan for ED Patient: Disposition: Home or Assisted Living Chief Complaint: Nausea/Vomiting Instructions: ED Diabetic Gastroparesis Referrals: You Parks MD [Primary Care Provider] - 1-2 Days if not improving What to do if you have Problems For any increased pain, shortness of breath, bleeding, nausea or vomiting, chest pain, or any unexpected problems, contact your Primary Care Provider. Call [facility] ([phone]) or report to the closest Emergency Room. Call 911 if necessary. 01/08/18 0827 <Electronically signed by Mansoor Haywood DO> Date Mansoor Haywood DO Mikaylaignmaggy Signature (If Indicated): Date CC: You Parks MD CBC W/DIFF, AUTOMATED Collected: 01/07/2018 Status: F Source: [facility] 9:02 AM REPOSITORY TYPE CODE TESTS RESULT OUT OF RANGE REFERENCE UNITS LAB L100.1000 4.4-11.0 K/mm3 Normal WBC 10.7 LAB L100.1200 4.2-5.4 M/mm3 Normal RBC 5.17 LAB L100.1300 12.0-15.0 g/dl Normal HGB 13.0 LAB L100.1400 37-47 % Normal HCT 39.6 LAB L100.1500 81-99 fL Low MCV 76.6 LAB L100.1600 27.0-32.0 pg Low MCH 25.1 LAB L100.1700 32-36 g/gl Normal MCHC 32.8 LAB L100.1810 11.6-14.6 % High RDW CV 15.8 LAB L100.1820 35.1-43.9 fl Normal RDW SD 43.5 LAB L100.1900 150-450 K/mm3 Normal PLT 335 LAB L100.2000 6.2-12.0 fl Normal MPV 9.7 LAB L100.2100 47-70 % Normal NEUT% 65.1 LAB L100.2200 19-41 % Normal LY% 23.3 LAB L100.2300 0-10 % Normal MONO% 7.9 LAB L100.2400 0-5 % Normal EO% 2.6 LAB L100.2500 0-1 % Normal BASO% 0.7 LAB L100.2550 0.0-0.9 % Normal IM GRAN % 0.400 Result Comment: IG% - Immature Granulocytes (promyelocytes, myelocytes and metamyelocytes) > 1% indicates that a LEFT SHIFT is Present. LAB L100.2620 2.0-7.7 X10 3/uL Normal Absolute Neut 7.0 LAB L100.2720 0.83-4.51 X10 3/ul Normal Absolute Lymph 2.49 Performed By: #### L100.0100 #### [facility] [address], [address] COMPREHENSIVE METABOLIC Collected: 01/07/2018 Status: F Source: [facility] 9:02 AM REPOSITORY TYPE CODE TESTS RESULT OUT OF RANGE REFERENCE UNITS LAB L501.0100 74-106 mg/dL High GLU 291 Result Comment: Glucose result greater than or equal to 200 mg/dL suggests DIABETES MELLITUS per A.D.A. criteria. Please note revised GLUCOSE reference range effective 2017. LAB L501.1000 7-18 mg/dL Normal BUN 10 LAB L501.1100 0.55-1.02 mg/dL High CREAT,SERUM 1.15 Result Comment: The validity of the calculated GFR AND GFRAA in patients over 70 years has not been determined. Clinical correlation is essential. LAB L501.1110 >60 mL/min Low EST GFR 51 Result Comment: Non- GFR Calc LAB L501.1115 >60 mL/min Normal EST GFR - AA 61 Result Comment: GFR Calc LAB L501.1255 ml/min Normal Estimated CRCL 46.87 LAB L501.1300 10-20 RATIO Low BUN/CRE 8.7 LAB L501.1500 6.4-8. g/dL Normal 2 T PROT 8.1 LAB L501.1800 3.2-5. g/dL Normal 0 ALB 3.2 LAB L501.1950 2.2-4. g/dL High 2 GLOB 4.9 LAB L501.2000 0.9-2. RATIO Low 4 A/G 0.7 LAB L501.2200 8.5-10 mg/dL Normal .1 CA 9.3 LAB L501.4100 15-37 U/L High AST 64 Result Comment: Slight Hemolysis. Results may be falsely increased. LAB L501.4305 45-117 U/L High ALK P 237 LAB L501.4405 13-56 U/L Normal ALT 44 LAB L501.4600 0.20-1.00 mg/dL Normal T BILI 0.50 LAB L501.5300 136-145 mmol/L Low NA 133 LAB L501.5600 3.5-5.1 mmol/L High K 5.8 Result Comment: Slight Hemolysis. Results may be falsely increased. LAB L501.5900 98-107 mmol/L Normal CL 98 LAB L501.6100 21.0-32.0 mmol/L Normal CO2 26.0 LAB L501.6200 5-15 Normal GAP 9 Performed By: #### L500.4050, L501.2450 #### [facility] [address] [place], [address] LIPASE Collected: 01/07/2018 Status: F Source: [place] 9:02 AM REPOSITORY TYPE CODE TESTS RESULT OUT OF RANGE REFERENCE UNITS LAB L501.2450 73-393 U/L Normal LIPASE 123 Performed By: #### L500.4050, L501.2450 #### [facility] [address] [place], [address] CNCO Observed: 12/31/2017 Status: COMPLETED Source: [place] 2:00 PM [facility] REPOSITORY HNO ID: [id number] Author: Mammography Coordinator Service: (none) Author Type: Physician Type: Letter Filed: 01/01/2018 11:32 PM Note Text: December 31, 2017 PID: [id number] Crystal Cramer [address] [place] [id number] Dear Ms. Cramer, We are pleased to inform you that the results of your recent breast imaging exam on 12/31/2017 are normal. Early detection of cancer is very important. We also understand recommendations regarding breast cancer screening are controversial. Please discuss with your primary care provider which strategy is best for you and whether a mammogram is right for you. Your imaging studies and report will be kept on file at [facility] as part of your permanent medical record and are available for your continuing care. Thank you for allowing us to help in meeting your health care needs. Sincerely, Dr. Hallman Interpreting Radiologist [facility] (Normal over 40) PROGRESS Observed: 12/31/2017 Status: COMPLETED Source: [place] 12:48 PM [facility] REPOSITORY HNO ID: [id number] Author: Carole Perkins Service: (none) Author Type: (none) Type: Progress Notes Filed: 12/31/2017 12:48 PM Note Text: Radiology Service Progress Note PATIENT NAME: Crystal Cramer DATE OF SERVICE: December 31, 2017 TIME: 12:48 PM PATIENT IDENTITY VERIFICATION COMPLETED USING TWO (2) METHODS: Patient confirmed name verbally and Date of . PATIENT GENDER DATA: Female. status: : No status: NO. PATIENT RELEVANT IMPLANT DATA REVIEWED: Yes CONTRAST INDUCED NEPHROPATHY RISK FACTORS: Patient age > 60 years CREATININE: Creatinine Date Value Ref Range Status 04/28/2015 0.87 0.51 - 0.95 mg/dL Final 04/27/2015 0.86 0.51 - 0.95 mg/dL Final 04/26/2015 0.81 0.51 - 0.95 mg/dL Final P.O.C.T. RESULTS: POC done: Yes, See Lab Tab December 31, 2017 RADIOLOGIST NOTIFIED?: No ALLERGIES: Reviewed and unchanged CONTRAST ALLERGY: NO. PERIPHERAL IV ACCESS: Ambulatory: IV type: A peripheral IV was started in the Right forearm with a Angio cath: 22 gauge., Site assessment: Clean,Dry and Intact, Site disposition Discontinued RADIOLOGY DEPARTMENT: CT; Exam(s) Completed: Chest Abdomen Pelvis SIGNED BY: Carole Bashir Ct December 31, 2017 12:[address] ABD/PEL W IVCON Observed: 12/31/2017 Status: F Source: [place] 12:22 PM 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 TECHNIQUE: CT of the abdomen and pelvis was performed using standard technique, scanning from just above the dome of the diaphragm to the symphysis pubis. MQ: CTAP_3 Contrast: IV: 145 ml of Omnipaque 300 Oral: 50 ml of 50ML Omnipaque [address] Radiation dose: Integrated Dose-length product (DLP) for this visit = 1748 mGy*cm. CT Dose Reduction Employed: Automated exposure control (AEC) COMPARISON: None. RESULT: Liver: indeterminant subcentimeter lesion in the LEFT hepatic lobe is too small to characterize (8; 32). Normal liver morphology. Suspect mild hepatic steatosis. Biliary: No bile duct dilation. Gallbladder is absent. Spleen: No mass. No splenomegaly. Pancreas: No mass or duct dilation. Adrenals: No mass. Kidneys: No mass or hydronephrosis. GI tract: No dilation or wall thickening. The distal esophagus appears to be displaced by adjacent fatty density, which may be herniating through the diaphragmatic hiatus. Lymph nodes: No abdominal or pelvic lymphadenopathy. Mesentery/Peritoneum: No ascites or mass. Retroperitoneum: No mass. Vasculature: The celiac axis and SMA are patent. The portal vein and branches, splenic vein, SMV, and hepatic veins are patent. Arterial atherosclerotic disease without aneurysm. Pelvis: No mass, ascites or fluid collection. Bones/Soft Tissues: Nonspecific soft tissue stranding of the skin/subcutaneous fat in the RIGHT mid ventral abdominal wall, which could be posttraumatic or represent the site of medication injection, depending on clinical correlation. No osseous destructive lesions. Lower thorax: A chest CT performed will be reported separately. IMPRESSION: Fatty density apparently causing mild mass effect over the distal esophagus may represent mesenteric peritoneal fat herniated through the diaphragmatic hiatus or a lipomatous lesion, although unclear if this may be contributing to the patient's symptoms. Commercial Glazier: ABRAM Transcribe Date/Time: Dec 31 2017 1:21P Dictated by : PELON GARRETT MD This examination was interpreted and the report reviewed and electronically signed by: PELON GARRETT MD on Dec 31 2017 1:32PM EST [id number] CT CHEST W IVCON Observed: 12/31/2017 Status: F Source: [place] 12:22 PM [facility] REPOSITORY * * *Final Report* * * DATE OF EXAM: Dec 31 2017 12:22PM [facility] 0539 - CT CHEST W IVCON / PROCEDURE REASON: Other disorders of nervous system * * * * Physician Interpretation * * * * EXAMINATION: CHEST CT WITH CONTRAST Indication: 62-year-old female with history of nausea and 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 Technique: Spiral CT acquisition of the chest from the thoracic inlet to the upper abdomen following IV contrast. MQ: CTCWR_5 Contrast: 145 mL Omnipaque [address] Dose-Length Product: 1748 mGy*cm CT Dose Reduction Employed: Automated exposure control (AEC) Comparison: None available RESULT: Limitations: Mild respiratory motion. Lines, tubes, and devices: None. Lung parenchyma and pleura: Images are mildly degraded by respiratory motion. No consolidation. There is a 3 mm right upper lobe pulmonary nodule adjacent to the major fissure. Mild dependent reticular and linear densities in the lower lobes are most consistent with subsegmental atelectasis. No pleural effusion. No pulmonary edema or pneumothorax. Central airways are patent. No endobronchial lesion. Thoracic inlet, heart, and mediastinum: The imaged thyroid gland is unremarkable. No supraclavicular or axillary lymphadenopathy. No mediastinal or hilar lymphadenopathy. Mild atherosclerosis of the thoracic aorta. 3 vessel aortic arch. Ascending thoracic aorta is normal in caliber. Main pulmonary artery is nondilated measuring 2.7 cm in diameter. Mild aortic valve calcification. Mild mitral annulus calcification. No distinct coronary artery atherosclerotic calcification is seen. There is left atrial enlargement. No pericardial effusion. Fat located anterior to the distal esophagus image 120 results in mild mass effect on the distal esophagus as seen on image 126. The esophagus is nondilated. Small amount of oral contrast is noted within the esophagus. Bones and soft tissues: Healed anterolateral right fifth rib fracture, image 92. No destructive lytic or blastic bone lesion. Multilevel endplate degenerative changes are present throughout the thoracic spine with associated vacuum disc. Upper abdomen: CT examination of the abdomen and pelvis, performed concurrently, is dictated separately. QB_N IMPRESSION: 1. Indeterminate 3 mm right upper lobe pulmonary nodule adjacent to the major fissure. This nodular density may represent a lymph node given location. Incidental Finding: No follow-up imaging for this incidentally detected lung nodule is recommended. If there are risk factors for lung malignancy, a follow-up chest CT could be obtained in 12 months. 2. Nonspecific fat attenuation density adjacent to the distal esophagus resulting in mild mass effect may represent herniated intra- abdominal fat or a lipomatous lesion. Commercial Glazier: ABRAM Transcribe Date/Time: Dec 31 2017 2:47P Dictated by : VERONICA IBARRA MD This examination was interpreted and the report reviewed and electronically signed by: VERONICA IBARRA MD on Dec 31 2017 3:07PM EST [id number] [place] CREATININE Collected: 12/31/2017 Status: F Source: [place] 10:09 AM [facility] [place] REPOSITORY TYPE CODE TESTS RESULT OUT OF REFERENCE UNITS RANGE LAB WCRET 0.7-1.4 mg/dL [place] Creatinine 1.2 LUCY SCREENING W RAMO Observed: 12/31/2017 Status: F Source: [place] 9:51 AM [facility] REPOSITORY * * *Final Report* * * DATE OF EXAM: Dec 31 2017 9:51AM [facility] 0582 - LUCY SCREENING W RAMO / PROCEDURE REASON: Other disorders of nervous system * * * * Physician Interpretation * * * * RESULT: #[id number] - LUCY SCREENING W RAMO BILATERAL DIGITAL SCREENING MAMMOGRAM TOMOSYNTHESIS WITH CAD: 12/31/2017 HISTORY: Other Disorders Of Nervous System\ Screening Mammogram - patient reports NO breast symptoms /Patient has signed release for outside images\[facility]. RESULT: TECHNIQUE: The study was acquired using full field digital technology and interpreted from soft copy. Digital Breast Tomosynthesis (DBT) images were obtained and used to assist in the interpretation of this examination. Current study was also evaluated with a Computer Aided Detection (CAD). No prior exams were available for comparison. The tissue of both breasts is predominantly fatty. No significant masses, calcifications, or other findings are seen in either breast. IMPRESSION: NEGATIVE There is no mammographic evidence of malignancy.A 1 year screening mammogram is recommended. The exam was reviewed by a staff physician. Maral Kennedy M.D., jr,as/maylin:12/31/2017 14:00:45 Geography Teacher: Janneth Chris RT(R)(M), [place] [facility] [place] letter sent: Normal over 40 Mammogram BI-RADS: 1 Negative Commercial Glazier: Maylin Transcribe Date/Time: Dec 31 2017 9:52A Dictated by: FABBY KENNEDY MD This examination was interpreted and the report reviewed and electronically signed by: MARAL HALLMAN MD on Dec 31 2017 2:00PM EST [id number] EMERGENCY DEPARTMENT Observed: 12/28/2017 Status: F Source: [place] SUMMARY 11:27 PM [facility] REPOSITORY [facility] Medical Records Department [address] [place] [address] Emergency Department Summary 12/28/17 2325 MR#: [id number] Acct: [id number] Name: CRYSTAL CRAMER Rep #: [id number] : 1955 62 From: Carlo Moffett MD PCP: You Parks MD Status: REG ER - ER Visit Summary Date of Service: 12/28/17 Chief Complaint: Nausea and vomiting History of Present Illness: The patient is a 62 F who presents with nausea and vomiting. She has a history of gastroparesis. She has had multiple similar presentations. Usually she is able to have her symptoms controlled with medications and be able to be discharged home. She states over the last 3 days she has had several episodes of nonbloody nonbilious emesis similar to prior exacerbations of her gastroparesis. She has belching. She continues to have flatus. She denies diarrhea or abdominal pain. No fevers. Physical Examination: Initial blood pressure 205/103 heart rate 107 vitals otherwise unremarkable Patient resting comfortably in no distress Moist mucous membranes Heart regular rhythm tachycardia Lungs are clear Abdomen soft nontender nondistended and has normal bowel sounds Test Results: Laboratory studies notable for white blood cell count 14,000, alkaline phosphatase 200, AST 43. Emergency Department Course and Treatment: Patient was symptomatically treated with IV fluids and Reglan. She has mild elevations of her alk phos AST and white blood cell count which on review of prior labs does appear similar. She reports improvement but still slightly nauseated on reevaluation was given Zofran. After that she did tolerate a p.o. challenge. She feels well enough to go home. Her repeat blood pressure is also significantly improved. She understands return for new or worsening symptoms all questions were answered bedside she is comfortable with the plan was discharged. Treatment Plan: [] Disposition: Discharge Impression: Vomiting Gastroparesis This note was generated with Instagram dictation software. It may contain incorrect words, spelling, and punctuation that were not noted in review of the chart prior to signing ED Disposition - Plan for ED Patient: Chief Complaint: Nausea/Vomiting Referrals: You Parks MD [Primary Care Provider] - What to do if you have Problems For any increased pain, shortness of breath, bleeding, nausea or vomiting, chest pain, or any unexpected problems, contact your Primary Care Provider. Call [facility] ([phone]) or report to the closest Emergency Room. Call 911 if necessary. 12/28/172326 <Electronically signed by Carlo Moffett MD> Date Carlo Moffett MD Cosigner Signature (If Indicated): Date CC: You Parks MD DISCHARGE INSTRUCTION Observed: 12/28/2017 Status: F Source: [place] 11:27 PM REPOSITORY [facility] Medical Records Department [address] [place] [address] Discharge Instruction 12/28/172326 MR#: [id number] Acct: [id number] Name: CRYSTAL CRAMER Rep #: [id number] : 1955 62 From: Carlo Moffett MD PCP: You Parks MD Status: REG ER ED Disposition - Plan for ED Patient: Chief Complaint: Nausea/Vomiting Instructions: ED Nausea Vomiting, Gastroparesis Referrals: You Parks MD [Primary Care Provider] - What to do if you have Problems For any increased pain, shortness of breath, bleeding, nausea or vomiting, chest pain, or any unexpected problems, contact your Primary Care Provider. Call [facility] ([phone]) or report to the closest Emergency Room. Call 911 if necessary. 12/28/172326 <Electronically signed by Carlo Moffett MD> Date Carlo Moffett MD Cosigner Signature (If Indicated): Date CC: You Parks MD CBC W/DIFF, AUTOMATED Collected: 12/28/2017 Status: F Source: [place] 10:10 PM REPOSITORY TYPE CODE TESTS RESULT OUT OF RANGE REFERENCE UNITS LAB L100.1000 4.4-11.0 K/mm3 High WBC 14.0 LAB L100.1200 4.2-5.4 M/mm3 Normal RBC 4.78 LAB L100.1300 12.0-15.0 g/dl Low HGB 11.8 LAB L100.1400 37-47 % Normal HCT 37.5 LAB L100.1500 81-99 fL Low MCV 78.5 LAB L100.1600 27.0-32.0 pg Low MCH 24.7 LAB L100.1700 32-36 g/gl Low MCHC 31.5 LAB L100.1810 11.6-14.6 % High RDW CV 15.6 LAB L100.1820 35.1-43.9 fl High RDW SD 44.7 LAB L100.1900 150-450 K/mm3 Normal PLT 324 LAB L100.2000 6.2-12.0 fl Normal MPV 8.9 LAB L100.2100 47-70 % High NEUT% 74.7 LAB L100.2200 19-41 % Low LY% 16.3 LAB L100.2300 0-10 % Normal MONO% 6.5 LAB L100.2400 0-5 % Normal EO% 2.2 LAB L100.2500 0-1 % Normal BASO% 0.2 LAB L100.2550 0.0-0.9 % Normal IM GRAN % 0.100 Result Comment: IG% - Immature Granulocytes (promyelocytes, myelocytes and metamyelocytes) > 1% indicates that a LEFT SHIFT is Present. LAB L100.2620 2.0-7.7 X10 3/uL High Absolute Neut 10.4 LAB L100.2720 0.83-4.51 X10 3/ul Normal Absolute Lymph 2.28 Performed By: #### L100.0100 #### [facility] [address] [place], [address] COMPREHENSIVE METABOLIC Collected: 12/28/2017 Status: F Source: [place] [facility] 10:10 PM REPOSITORY TYPE CODE TESTS RESULT OUT OF RANGE REFERENCE UNITS LAB L501.0100 74-106 mg/dL High GLU 214 Result Comment: Glucose result greater than or equal to 200 mg/dL suggests DIABETES MELLITUS per A.D.A. criteria. Please note revised GLUCOSE reference range effective 2017. LAB L501.1000 7-18 mg/dL Normal BUN 12 LAB L501.1100 0.55-1.02 mg/dL High CREAT,SERUM 1.11 Result Comment: The validity of the calculated GFR AND GFRAA in patients over 70 years has not been determined. Clinical correlation is essential. LAB L501.1110 >60 mL/min Low EST GFR 53 Result Comment: Non- GFR Calc LAB L501.1115 >60 mL/min Normal EST GFR - AA 64 Result Comment: GFR Calc LAB L501.1255 ml/min Normal Estimated CRCL 48.56 LAB L501.1300 10-20 RATIO Normal BUN/CRE 10.8 LAB L501.1500 6.4-8. g/dL Normal 2 T PROT 7.4 LAB L501.1800 3.2-5. g/dL Low 0 ALB 3.1 LAB L501.1950 2.2-4. g/dL High 2 GLOB 4.3 LAB L501.2000 0.9-2. RATIO Low 4 A/G 0.7 LAB L501.2200 8.5-10 mg/dL Normal .1 CA 8.7 LAB L501.4100 15-37 U/L High AST 43 LAB L501.4305 45-117 U/L High ALK P 200 LAB L501.4405 13-56 U/L Normal ALT 35 LAB L501.4600 0.20-1 mg/dL Normal .00 T BILI 0.70 LAB L501.5300 136-14 mmol/L Low 5 NA 135 LAB L501.5600 3.5-5. mmol/L Normal 1 K 3.9 LAB L501.5900 98-107 mmol/L Normal CL 101 LAB L501.6100 21.0-3 mmol/L Normal 2.0 CO2 27.0 LAB L501.6200 5-15 Normal GAP 7 Performed By: #### L500.4050, L501.2450 #### [facility] [address] [place], [address] LIPASE Collected: 12/28/2017 Status: F Source: [place] 10:10 PM REPOSITORY TYPE CODE TESTS RESULT OUT OF RANGE REFERENCE UNITS LAB L501.2450 73-393 U/L Normal LIPASE 96 Performed By: #### L500.4050, L501.2450 #### [facility] [address] [place], [address] PROGRESS Observed: 12/18/2017 Status: COMPLETED Source: [place] 10:32 AM [facility] [place] REPOSITORY HNO ID: [id number] Author: Mukul Steven Service: (none) Author Type: Physician Type: Progress Notes Filed: 12/18/2017 10:45 AM Note Text: FOLLOW UP VISIT CHIEF COMPLAINT Patient presents with: Established Patient: nausea, constipation Ms. Cramer is here today for follow-up of: nausea antibody positive lab. HPI I saw this 62y/o in f/u for her nausea. 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 The patient has ongoing issues with muscle pain and weakness. This will have bad days and days that are not so severe. Her weight is stable. The Smart Pill showed only a mild delay in the colon suggesting the antibody is driving the gi symptoms Current Outpatient Prescriptions: promethazine (PHENERGAN) 25 mg tablet Take 25 mg by mouth three times daily. Disp: Rfl: morphine IR 15 mg tablet Take 15 mg by mouth every 4 hours as needed. Disp: Rfl: Levothyroxine 50 mcg cap Take by mouth once daily. Disp: Rfl: allopurinol (ZYLOPRIM) 100 mg tablet Take 100 mg by mouth once daily. Disp: Rfl: valsartan (DIOVAN) 80 mg tablet Take 80 mg by mouth once daily. Disp: Rfl: aspirin, enteric coated (ASPIRIN, ENTERIC COATED) 81 mg EC tablet Take 81 mg by mouth once daily. Disp: Rfl: INSULIN DEGLUDEC (TRESIBA FLEXTOUCH U-100 SUBCUTANEOUS) Inject 120 mg subcutaneously once daily. Disp: Rfl: INSULIN LISPRO (HUMALOG SUBCUTANEOUS) Inject subcutaneously as directed. Disp: Rfl: rOPINIRole 1 mg tablet Take 1 mg by mouth once daily. Disp: Rfl: simvastatin 40 mg tablet Take 40 mg by mouth daily at bedtime. Disp: Rfl: pregabalin (LYRICA) 75 mg capsule Take 150 mg by mouth twice daily. Disp: Rfl: Omeprazole 40 mg capsule Take 40 mg by mouth once daily. Disp: Rfl: HYDROCODONE BIT/ACETAMINOPHEN (VICODIN ORAL) Take by mouth. Disp: Rfl: aprepitant (EMEND) 40 mg capsule Take 1 capsule by mouth once daily. (Patient not taking: Reported on 12/18/2017 ) Disp: 30 capsule Rfl: 6 immune globlin, human,, IGG, (GAMMAGARD S/D) 10 gram injection 400mg/kg IV weekly for 12 weeks, premedicate with 25 mg Benadryl po and Tylenol 500mg po, give 1 liter NS IV prior to each infusion. (Patient not taking: Reported on 12/18/2017 ) Disp: 12 Each Rfl: 1 trimethobenzamide (TIGAN) 300 mg capsule Take 1 capsule by mouth three times daily. Disp: 90 capsule Rfl: 6 mirtazapine (REMERON) 15 mg tablet Take 1 tablet by mouth daily at bedtime. Disp: 30 tablet Rfl: 6 lamoTRIgine (LAMICTAL) 100 mg tablet Take 100 mg by mouth twice daily. Disp: Rfl: sertraline (ZOLOFT) 100 mg tablet Take 100 mg by mouth once daily. Disp: Rfl: SUMATRIPTAN SUCCINATE ORAL Take by mouth as needed. Disp: Rfl: metoclopramide HCl (REGLAN) 10 mg tablet Take 1 tablet by mouth three times daily. (Patient not taking: Reported on 12/18/2017 ) Disp: 90 tablet Rfl: 3 ondansetron (ZOFRAN) 4 mg tablet Take 1 tablet by mouth every 8 hours as needed. (Patient not taking: Reported on 12/18/2017 ) Disp: 30 tablet Rfl: 1 montelukast (SINGULAIR) 10 mg tablet Take 10 mg by mouth daily at bedtime. Disp: Rfl: metoclopramide HCl (REGLAN) 5 mg tablet Take 5 mg by mouth four times daily. Disp: Rfl: sucralfate (CARAFATE) 1 gram tablet Take 1 g by mouth four times daily. Disp: Rfl: olmesartan (BENICAR) 40 mg tablet Take 40 mg by mouth once daily. Disp: Rfl: INSULIN ASPART (NOVOLOG PENFILL SUBCUTANEOUS) Inject subcutaneously. Disp: Rfl: INSULIN ASPART (NOVOLOG FLEXPEN SUBCUTANEOUS) Inject subcutaneously. Sliding scale Disp: Rfl: exenatide microspheres (BYDUREON) 2 mg/0.65 mL pnij Inject subcutaneously. Disp: Rfl: No current facility-administered medications for this visit. ALLERGIES Allergen Reactions - Bactrim [Sulfametho* Hives - Toradol [Ketorolac] Other: See Comments Increase BP - Ciprofloxacin Rash - Flexeril [Cyclobenz* Rash - Metformin Other: See Comments Migraines Social History Marital status: Spouse name: Cheikh Years of education: Number of children: 2 Social History Main Topics Smoking status: Never Smoker Smokeless tobacco: Never Used Alcohol use: No Drug use: No Medical History: No changes since last visit. REVIEW OF SYSTEMS: GENERAL: weight stable, no fevers. 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 Reviewed with patient during visit today. PHYSICAL EXAMINATION: BP 139/69 Pulse 79 Temp (Src) 98.3 (Oral) Ht 5' 6 (1.68m) Wt 266 lb 6 oz (120.8kg) SpO2 94% BMI 43.01 kg/(m2). GENERAL APPEARANCE: Well developed and well nourished. SKIN: Skin color, texture, turgor normal. No rashes or lesions. EYES: Conjunctiva normal without icterus. OROPHARYNX: lips, mucosa, and tongue normal, teeth and gums normal NECK: Supple, full range of motion, no lymphadenopathy, normal thyroid, no carotid bruits and no JVD LUNGS: Normal breath sounds, Clear to auscultation, No wheezes, No crackles. HEART:Normal PMI, Regular rate and rhythm, Normal heart sounds, S1 and S2 and No murmurs. NEURO: Alert and oriented in no acute distress. ABDOMEN: Normal bowel sounds, abdomen flat with no distention, Soft, non-tender, no hepatomegaly. no palpable masses, no abdominal bruits, no rebound and no rigidity. EXTREMITIES:Extremities normal, No deformities, No skin discoloration, No edema . 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 REPOSITORY Office Visit (GASTMN) CRYSTAL CRAMER ([id number]) 1955 F Date Time Provider Department 12/18/17 10:10 AM STEVENMUKUL Thrasher GASTMN During your visit today, we recorded the following information about you: Temperature Pulse Blood pressure Weight 98.3 degrees 79/minute 139/69 120.8 kg Height 1.676 m Mukul Steven DO 12/18/2017 10:45 AM Signed FOLLOW UP VISIT CHIEF COMPLAINT Patient presents with: Established Patient: nausea, constipation Ms. Cramer is here today for follow-up of: nausea antibody positive lab. HPI I saw this 62y/o in f/u for her nausea. 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 The patient has ongoing issues with muscle pain and weakness. This will have bad days and days that are not so severe. Her weight is stable. The Smart Pill showed only a mild delay in the colon suggesting the antibody is driving the gi symptoms Current Outpatient Prescriptions: promethazine (PHENERGAN) 25 mg tablet Take 25 mg by mouth three times daily. Disp: Rfl: morphine IR 15 mg tablet Take 15 mg by mouth every 4 hours as needed. Disp: Rfl: Levothyroxine 50 mcg cap Take by mouth once daily. Disp: Rfl: allopurinol (ZYLOPRIM) 100 mg tablet Take 100 mg by mouth once daily. Disp: Rfl: valsartan (DIOVAN) 80 mg tablet Take 80 mg by mouth once daily. Disp: Rfl: aspirin, enteric coated (ASPIRIN, ENTERIC COATED) 81 mg EC tablet Take 81 mg by mouth once daily. Disp: Rfl: INSULIN DEGLUDEC (TRESIBA FLEXTOUCH U-100 SUBCUTANEOUS) Inject 120 mg subcutaneously once daily. Disp: Rfl: INSULIN LISPRO (HUMALOG SUBCUTANEOUS) Inject subcutaneously as directed. Disp: Rfl: rOPINIRole 1 mg tablet Take 1 mg by mouth once daily. Disp: Rfl: simvastatin 40 mg tablet Take 40 mg by mouth daily at bedtime. Disp: Rfl: pregabalin (LYRICA) 75 mg capsule Take 150 mg by mouth twice daily. Disp: Rfl: Omeprazole 40 mg capsule Take 40 mg by mouth once daily. Disp: Rfl: HYDROCODONE BIT/ACETAMINOPHEN (VICODIN ORAL) Take by mouth. Disp: Rfl: aprepitant (EMEND) 40 mg capsule Take 1 capsule by mouth once daily. (Patient not taking: Reported on 12/18/2017 ) Disp: 30 capsule Rfl: 6 immune globlin, human,, IGG, (GAMMAGARD S/D) 10 gram injection 400mg/kg IV weekly for 12 weeks, premedicate with 25 mg Benadryl po and Tylenol 500mg po, give 1 liter NS IV prior to each infusion. (Patient not taking: Reported on 12/18/2017 ) Disp: 12 Each Rfl: 1 trimethobenzamide (TIGAN) 300 mg capsule Take 1 capsule by mouth three times daily. Disp: 90 capsule Rfl: 6 mirtazapine (REMERON) 15 mg tablet Take 1 tablet by mouth daily at bedtime. Disp: 30 tablet Rfl: 6 lamoTRIgine (LAMICTAL) 100 mg tablet Take 100 mg by mouth twice daily. Disp: Rfl: sertraline (ZOLOFT) 100 mg tablet Take 100 mg by mouth once daily. Disp: Rfl: SUMATRIPTAN SUCCINATE ORAL Take by mouth as needed. Disp: Rfl: metoclopramide HCl (REGLAN) 10 mg tablet Take 1 tablet by mouth three times daily. (Patient not taking: Reported on 12/18/2017 ) Disp: 90 tablet Rfl: 3 ondansetron (ZOFRAN) 4 mg tablet Take 1 tablet by mouth every 8 hours as needed. (Patient not taking: Reported on 12/18/2017 ) Disp: 30 tablet Rfl: 1 montelukast (SINGULAIR) 10 mg tablet Take 10 mg by mouth daily at bedtime. Disp: Rfl: metoclopramide HCl (REGLAN) 5 mg tablet Take 5 mg by mouth four times daily. Disp: Rfl: sucralfate (CARAFATE) 1 gram tablet Take 1 g by mouth four times daily. Disp: Rfl: olmesartan (BENICAR) 40 mg tablet Take 40 mg by mouth once daily. Disp: Rfl: INSULIN ASPART (NOVOLOG PENFILL SUBCUTANEOUS) Inject subcutaneously. Disp: Rfl: INSULIN ASPART (NOVOLOG FLEXPEN SUBCUTANEOUS) Inject subcutaneously. Sliding scale Disp: Rfl: exenatide microspheres (BYDUREON) 2 mg/0.65 mL pnij Inject subcutaneously. Disp: Rfl: No current facility-administered medications for this visit. ALLERGIES Allergen Reactions - Bactrim [Sulfametho* Hives - Toradol [Ketorolac] Other: See Comments Increase BP - Ciprofloxacin Rash - Flexeril [Cyclobenz* Rash - Metformin Other: See Comments Migraines Social History Marital status: Spouse name: Cheikh Years of education: Number of children: 2 Social History Main Topics Smoking status: Never Smoker Smokeless tobacco: Never Used Alcohol use: No Drug use: No Medical History: No changes since last visit. REVIEW OF SYSTEMS: GENERAL: weight stable, no fevers. 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 Reviewed with patient during visit today. PHYSICAL EXAMINATION: BP 139/69 Pulse 79 Temp (Src) 98.3 (Oral) Ht 5' 6 (1.68m) Wt 266 lb 6 oz (120.8kg) SpO2 94% BMI 43.01 kg/(m2). GENERAL APPEARANCE: Well developed and well nourished. SKIN: Skin color, texture, turgor normal. No rashes or lesions. EYES: Conjunctiva normal without icterus. OROPHARYNX: lips, mucosa, and tongue normal, teeth and gums normal NECK: Supple, full range of motion, no lymphadenopathy, normal thyroid, no carotid bruits and no JVD LUNGS: Normal breath sounds, Clear to auscultation, No wheezes, No crackles. HEART:Normal PMI, Regular rate and rhythm, Normal heart sounds, S1 and S2 and No murmurs. NEURO: Alert and oriented in no acute distress. ABDOMEN: Normal bowel sounds, abdomen flat with no distention, Soft, non-tender, no hepatomegaly. no palpable masses, no abdominal bruits, no rebound and no rigidity. EXTREMITIES:Extremities normal, No deformities, No skin discoloration, No edema . 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 CREATININE BLD LUCY SCREENING CT ABD/PEL W IVCON CT CHEST W IVCON Mukul Steven 12/18/2017 Referring Provider: YOU APRKS [[id number]] Allergies As of Date: 12/18/2017 Noted Allergy Reaction BACTRIM (SULFAMETHOXAZOLE-TRIMETH*07/31/2017 4 - Hives TORADOL (KETOROLAC) 03/22/2006 14 - Other: See Comments Comments: Increase BP CIPROFLOXACIN 06/10/2013 2 - Rash FLEXERIL (CYCLOBENZAPRINE) 06/10/2013 2 - Rash METFORMIN 06/28/2017 14 - Other: See Comments Comments: Migraines Date Reviewed: 12/18/2017 Reviewed by: Mukul Steven - Fully Assessed Reason for Visit: Established Patient [175] Cmt: nausea, constipation Primary Visit Diagnosis:Voltage-gated potassium channel (VGKC) antibody syndrome [G98.8] Order(s):CREATININE BLD [SQCRET] Order #: [id number] FUTURE LUCY SCREENING [[id number]] Order #: [id number] FUTURE CT ABD/PEL W IVCON [[id number]] Order #: [id number] FUTURE CT CHEST W IVCON [[id number]] Order #: [id number] FUTURE iv contrast (radiology procedure)CT Chest ABD/PEL-Inject, intravenously, once for 1 dose.No IV access, insert saline lock prior to the beginning of sedation, infusion, injection of imaging exam. Discontinue saline lock post exam. If Pt. has a central line or IVAD, may access for administration according to line specific nursing protocol. Once exam is complete flush line and de- access according to line specific nursing protocol in the CT contrast administration guidelines link.Disp: 1 EachRfl: 0 enteric contrast (radiology procedure)For CT CHESTABD/PEL W IVCON Routine order Administer, As Directed One Time Only, via Oral, Rectal, both Oral and Rectal, Enteric Tube, Stoma or Indwelling Catheter, Enteric Contrast as designated per enteric contrast guidelinesDisp: 1 EachRfl: 0 Prescriptions as of 12/18/2017 Sig: PROMETHAZINE 25 MG TAB (PHENE* Take 25 mg by mouth three mikki* MORPHINE 15 MG IMMEDIATE RELE* Take 15 mg by mouth every 4 h* LEVOTHYROXINE 50 MCG CAPSULE Take by mouth once daily. ALLOPURINOL 100 MG TABLET Take 100 mg by mouth once scotty* VALSARTAN 80 MG TABLET Take 80 mg by mouth once alicia* ASPIRIN 81 MG TABLET,DELAYED * Take 81 mg by mouth once alicia* TRESIBA FLEXTOUCH U-100 SUBCU* Inject 120 mg subcutaneously * HUMALOG SUBCUTANEOUS Inject subcutaneously as dir* ROPINIROLE 1 MG TABLET Take 1 mg by mouth once daily. SIMVASTATIN 40 MG TABLET Take 40 mg by mouth daily at * PREGABALIN 75 MG CAPSULE Take 150 mg by mouth twice da* OMEPRAZOLE 40 MG CAPSULE,HUMBLE* Take 40 mg by mouth once alicia* VICODIN ORAL Take by mouth. IV CONTRAST (RADIOLOGY PROCED* CT Chest ABD/PEL-Inject, intr* ENTERIC CONTRAST (RADIOLOGY P* For CT CHESTABD/PEL W IVCON R* APREPITANT 40 MG CAPSULE Take 1 capsule by mouth once * Patient not taking: Reported on 12/18/2017 IMMUNE GLOB,GAMMA(IGG) 10 GRA* 400mg/kg IV weekly for 12 wee* Patient not taking: Reported on 12/18/2017 TRIMETHOBENZAMIDE 300 MG CAPS* Take 1 capsule by mouth three* MIRTAZAPINE 15 MG TABLET Take 1 tablet by mouth daily * LAMOTRIGINE 100 MG TABLET Take 100 mg by mouth twice da* SERTRALINE 100 MG TABLET Take 100 mg by mouth once scotty* SUMATRIPTAN SUCCINATE ORAL Take by mouth as needed. METOCLOPRAMIDE 10 MG TABLET Take 1 tablet by mouth three * Patient not taking: Reported on 12/18/2017 ONDANSETRON HCL 4 MG TABLET Take 1 tablet by mouth every * Patient not taking: Reported on 12/18/2017 MONTELUKAST 10 MG TABLET Take 10 mg by mouth daily at * METOCLOPRAMIDE 5 MG TABLET Take 5 mg by mouth four times* SUCRALFATE 1 GRAM TABLET Take 1 g by mouth four times * OLMESARTAN 40 MG TABLET Take 40 mg by mouth once alicia* NOVOLOG PENFILL SUBCUTANEOUS Inject subcutaneously. NOVOLOG FLEXPEN SUBCUTANEOUS Inject subcutaneously. Slidi* EXENATIDE ER 2 MG/0.65 ML SUB* Inject subcutaneously. Problem List As Of Date 12/18/2017 Noted Resolved TB LUNG NODULAR-UNSPEC [A15.0] INVALID FOR* DIARRHEA NOS [R19.7] INVALID FOR* Nausea AND vomiting [R11.2] INVALID FOR* Prescriptions ordered this encounter Disp Refills Start End IV CONTRAST (RADIOLOGY PROCEDURE) 1 Ea* 0 12/18/2017 12/19/2017 Class: In Office Sig: CT Chest ABD/PEL-Inject, intravenously, once for 1 dose.No IV access, insert saline lock prior to the beginning of sedation, infusion, injection of imaging exam. Discontinue saline lock post exam. If Pt. has a central line or IVAD, may access for administration according to line specific nursing protocol. Once exam is complete flush line and de-access according to line specific nursing protocol in the CT contrast administration guidelines link. ENTERIC CONTRAST (RADIOLOGY PROCEDUR* 1 Ea* 0 12/18/2017 12/19/2017 Class: In Office Sig: For CT CHESTABD/PEL W IVCON Routine order Administer, As Directed One Time Only, via Oral, Rectal, both Oral and Rectal, Enteric Tube, Stoma or Indwelling Catheter, Enteric Contrast as designated per enteric contrast guidelines Encounter Status:Closed by MUKUL STEVEN DO on 12/18/17 EMERGENCY DEPARTMENT Observed: 12/17/2017 Status: F Source: [place] SUMMARY 2:25 AM [facility] Medical Records Department [address] [place] [address] Emergency Department Summary 12/16/17 2155 MR#: [id number] Acct: [id number] Name: CRYSTAL CRMAER Rep #: [id number] : 1955 62 From: Mukul Morris MD PCP: You Parks MD Status: DEP ER - ER Visit Summary Date of Service: 12/16/17 Chief Complaint: Nausea and vomiting History of Present Illness: The patient is a 62 F presenting for evaluation secondary nausea vomiting. Patient has an underlying history gastroparesis. Patient states that today she started vomiting. She states she had one episode of nonbloody nonbilious emesis. Denies any abdominal pain. She is concerned because she was unable to keep her Phenergan down at home, so she came to the emergency department. Physical Examination: Vital signs are within normal limits, patient is afebrile. General: Patient is well-nourished well-developed and in no acute distress. Head: Normocephalic, atraumatic Eyes: Pupils equal round and reactive bilaterally, extra occular motion intact bialterally ENT: Moist mucous membranes Neck: Supple, no lymphadenopathy, no JVD, no meningismus CVS: Heart regular rate and rhythm, no murmurs, rubs or gallops, radial pulses 2+ bilaterally Resp: Respirations nondistressed, lung sounds clear bilaterally Abdomen: Soft, nontender, nondistended, no palpable masses, normal bowel sounds Back: Nontender Extremities: Nontender, atraumatic, active full range of motion, no peripheral edema Skin: warm, no rashes, no petechia Neuro: Alert and oriented x 4, CN 2-12 intact, no lateralizing neurological defecits Psyc: Normal affect Test Results: CBC shows likely reactive leukocytosis 13.3, chemistry shows mild hyponatremia 131 Emergency Department Course and Treatment: Patient is well known to this department, and is presenting with her typical gastroparesis symptoms. She has normal vital signs, her laboratory workup is essentially unremarkable. Patient was treated with Phenergan and Reglan had symptomatic improvement on repeat evaluation at 2155. At this point I believe she can safely be discharged with continued home management. Disposition: Discharge Impression: 1. Gastroparesis This note was generated with Instagram dictation software. It may contain incorrect words, spelling, and punctuation that were not noted in review of the chart prior to signing ED Disposition - Plan for ED Patient: Disposition: Home or Assisted Living Chief Complaint: Nausea/Vomiting Diagnosis: Gastroparesis Instructions: ED Diabetic Gastroparesis Referrals: You Parks MD [Primary Care Provider] - As soon as possible What to do if you have Problems For any increased pain, shortness of breath, bleeding, nausea or vomiting, chest pain, or any unexpected problems, contact your Primary Care Provider. Call [facility] ([phone]) or report to the closest Emergency Room. Call 911 if necessary. 12/17/17 0225 <Electronically signed by Mukul Morris MD> Date Mukul Morris MD Cosigner Signature (If Indicated): Date CC: You Parks MD CBC W/DIFF, AUTOMATED Collected: 12/16/2017 Status: F Source: [facility] 7:10 PM REPOSITORY TYPE CODE TESTS RESULT OUT OF RANGE REFERENCE UNITS LAB L100.1000 4.4-11.0 K/mm3 High WBC 13.3 LAB L100.1200 4.2-5.4 M/mm3 Normal RBC 4.88 LAB L100.1300 12.0-15.0 g/dl Low HGB 11.9 LAB L100.1400 37-47 % Normal HCT 37.6 LAB L100.1500 81-99 fL Low MCV 77.0 LAB L100.1600 27.0-32.0 pg Low MCH 24.4 LAB L100.1700 32-36 g/gl Low MCHC 31.6 LAB L100.1810 11.6-14.6 % High RDW CV 15.5 LAB L100.1820 35.1-43.9 fl Normal RDW SD 43.1 LAB L100.1900 150-450 K/mm3 Normal PLT 328 LAB L100.2000 6.2-12.0 fl Normal MPV 9.3 LAB L100.2100 47-70 % High NEUT% 74.1 LAB L100.2200 19-41 % Low LY% 17.5 LAB L100.2300 0-10 % Normal MONO% 5.6 LAB L100.2400 0-5 % Normal EO% 2.3 LAB L100.2500 0-1 % Normal BASO% 0.3 LAB L100.2550 0.0-0.9 % Normal IM GRAN % 0.200 Result Comment: IG% - Immature Granulocytes (promyelocytes, myelocytes and metamyelocytes) > 1% indicates that a LEFT SHIFT is Present. LAB L100.2620 2.0-7.7 X10 3/uL High Absolute Neut 9.8 LAB L100.2720 0.83-4.51 X10 3/ul Normal Absolute Lymph 2.32 Performed By: #### L100.0100 #### [facility] [address] [place], [address] BASIC METABOLIC Collected: 12/16/2017 Status: F Source: [place] PROFILE (BMP) 7:10 PM REPOSITORY TYPE CODE TESTS RESULT OUT OF RANGE REFERENCE UNITS LAB L501.0100 74-106 mg/dL High GLU 343 Result Comment: Glucose result greater than or equal to 200 mg/dL suggests DIABETES MELLITUS per A.D.A. criteria. Please note revised GLUCOSE reference range effective 2017. LAB L501.1000 7-18 mg/dL Normal BUN 14 LAB L501.1100 0.55-1.02 mg/dL High CREAT,SERUM 1.17 Result Comment: The validity of the calculated GFR AND GFRAA in patients over 70 years has not been determined. Clinical correlation is essential. LAB L501.1110 >60 mL/min Low EST GFR 50 Result Comment: Non- GFR Calc LAB L501.1115 >60 mL/min Normal EST GFR - AA 60 Result Comment: GFR Calc LAB L501.1255 ml/min Normal Estimated CRCL 46.07 LAB L501.1300 10-20 RATIO Normal BUN/CRE 12.0 LAB L501.2200 8.5-10 mg/dL Normal .1 CA 9.2 LAB L501.5300 136-14 mmol/L Low 5 NA 131 LAB L501.5600 3.5-5. mmol/L Normal 1 K 4.3 LAB L501.5900 98-107 mmol/L Low CL 97 LAB L501.6100 21.0-3 mmol/L Normal 2.0 CO2 30.0 LAB L501.6200 5-15 Low GAP 4 Performed By: #### L500.2500 #### [facility] [address] [place], [address] EMERGENCY DEPARTMENT Observed: 12/11/2017 Status: F Source: [place] SUMMARY 7:53 PM REPOSITORY [facility] Medical Records Department [address] [place] [address] Emergency Department Summary 12/11/171951 MR#: [id number] Acct: [id number] Name: CRYSTAL CRAMER Rep #: [id number] : 1955 62 From: Jose Alberto Umana MD PCP: You Parks MD Status: REG ER - ER Visit Summary Date of Service: 12/11/17 Chief Complaint: [] History of Present Illness: The patient is a 62 F [] Physical Examination: [] Test Results: [] Emergency Department Course and Treatment: [] Treatment Plan: [] Disposition: [] Impression: [] This note was generated with Dragon dictation software. It may contain incorrect words, spelling, and punctuation that were not noted in review of the chart prior to signing ED Disposition - Plan for ED Patient: Disposition: Home or Assisted Living Chief Complaint: Nausea/Vomiting Instructions: Gastroparesis, ED Diabetic Gastroparesis Referrals: You Parks MD [Primary Care Provider] - As Needed What to do if you have Problems For any increased pain, shortness of breath, bleeding, nausea or vomiting, chest pain, or any unexpected problems, contact your Primary Care Provider. Call [facility] ([phone]) or report to the closest Emergency Room. Call 911 if necessary. 12/11/171952 <Electronically signed by Jose Alberto Umana MD> Date Jose Alberto Umana MD Cosigner Signature (If Indicated): Date CC: You Parks MD EMERGENCY DEPARTMENT Observed: 12/11/2017 Status: F Source: [place] SUMMARY 7:49 PM REPOSITORY [facility] Medical Records Department [address] [place] [address] Emergency Department Summary 12/11/171944 MR#: [id number] Acct: [id number] Name: CRYSTAL CRAMER Rep #: [id number] : 1955 62 From: Jose Alberto Umana MD PCP: You Parks MD Status: REG ER - ER Visit Summary Date of Service: 12/11/17 Chief Complaint: Nausea and vomiting History of Present Illness: The patient is a 62 F with history of gastroparesis who presents with nausea and dry heaves. This is a chronic issue. She states that her symptoms are worse. She is on antiemetic at home. She has had no relief. She is uncertain whether she has had decreased urine output. She denies diarrhea. She denies fever, chills night sweats. Denies weight gain weight loss. She denies any ocular, visual auditory symptoms. She denies any cardiac respiratory symptoms. She denies any urologic symptoms. Denies myalgias arthralgias. Physical Examination: Vital signs are marked for an elevated blood pressure 160/97. BMI is 40.4. HEENT exam is remarkable dry mucosa. Heart is regular without murmur, gallop or rub. S1 and S2 are normal. Lungs are clear to auscultation with good movement of air bilaterally. Abdomen is soft with minimal tenderness to deep palpation at best. The remainder of her abdominal exam is unremarkable. She is alert oriented with nonfocal neurologic exam. She does have depressed affect. Test Results: Electrode panels marked for glucose of 179 with a BUN and creatinine of 16 and 1.32 respectively. GFR is 43. This is approximately baseline. Emergency Department Course and Treatment: IV was established she received IV fluids. She initially was given 10 of Reglan without improvement. She then was given 625 mg of promethazine and has passed p.o. challenge. Treatment Plan: Follow-up with PCP Disposition: Discharged home in stable improved condition Impression: 1. Nausea and vomiting secondary gastroparesis 2. Mild dehydration 3. Hyperglycemia type II diabetic 4. Renal insufficiency This note was generated with Instagram dictation software. It may contain incorrect words, spelling, and punctuation that were not noted in review of the chart prior to signing ED Disposition - Plan for ED Patient: Disposition: Home or Assisted Living Chief Complaint: Nausea/Vomiting Instructions: Gastroparesis Referrals: You Parks MD [Primary Care Provider] - As Needed What to do if you have Problems For any increased pain, shortness of breath, bleeding, nausea or vomiting, chest pain, or any unexpected problems, contact your Primary Care Provider. Call [facility] ([phone]) or report to the closest Emergency Room. Call 911 if necessary. 12/11/171948 <Electronically signed by Jose Alberto Umana MD> Date Jose Alberto Umana MD Cosigner Signature (If Indicated): Date CC: You Parks MD BASIC METABOLIC Collected: 12/11/2017 Status: F Source: [facility] PROFILE (BMP) 4:15 PM REPOSITORY TYPE CODE TESTS RESULT OUT OF RANGE REFERENCE UNITS LAB L501.0100 74-106 mg/dL High GLU 179 Result Comment: Fasting Glucose result greater than or equal to 126 mg/dL suggests DIABETES MELLITUS per A.D.A. criteria. Please note revised GLUCOSE reference range effective 2017. LAB L501.1000 7-18 mg/dL Normal BUN 16 LAB L501.1100 0.55-1.02 mg/dL High CREAT,SERUM 1.32 Result Comment: The validity of the calculated GFR AND GFRAA in patients over 70 years has not been determined. Clinical correlation is essential. LAB L501.1110 >60 mL/min Low EST GFR 43 Result Comment: Non- GFR Calc LAB L501.1115 >60 mL/min Low EST GFR - AA 52 Result Comment: GFR Calc LAB L501.1255 ml/min Normal Estimated CRCL 40.84 LAB L501.1300 10-20 RATIO Normal BUN/CRE 12.1 LAB L501.2200 8.5-10 mg/dL Normal .1 CA 9.3 LAB L501.5300 136-14 mmol/L Low 5 NA 133 LAB L501.5600 3.5-5. mmol/L Normal 1 K 4.3 Result Comment: Moderate Hemolysis, Result may be falsely increased. LAB L501.5900 98-107 mmol/L Low CL 95 LAB L501.6100 21.0-32.0 mmol/L Normal CO2 31.0 LAB L501.6200 5-15 Normal GAP 7 Performed By: #### L500.2500 #### [facility] [address] [facility] [place], [address] 12 LEAD ELECTROCARDIOGRAM Observed: 12/09/2017 Status: F Source: [facility] 3:16 PM REPOSITORY [facility] Cardiovascular Services [address] [place] [address] 12 Lead EKG 12/05/172009 MR#: [id number] Acct: [id number] Name: CRYSTAL CRAMER Rep #: [id number] : 1955 62 From: Son Ellison MD Attending Dr: Status: DEP ER Ordering Dr: Hailey Avelar MD Date: 12/05/17 Location: ED Sex: F C Admitted: Test Reason : Blood Pressure : / mmHG Vent. Rate : 076 BPM Atrial Rate : 076 BPM P-R Int : 096 ms QRS Dur : 090 ms QT Int : 446 ms P-R-T Axes : 000 -28 025 degrees QTc Int : 501 ms Sinus rhythm Leftward axis Poor R wave progression Prolonged QT Abnormal ECG Confirmed by JOSE MANUEL CURRY, SON ([id number]), video effects editor MAIKEL MULLEN ([id number]) on 12/09/2017 3:15:36 PM Referred By: BENI Confirmed By:SON ELLISON MD 12/09/17 6695 Date Son Ellison MD CC: MD Mamadou Avelar; YOU PARKS Signed EMERGENCY DEPARTMENT Observed: 12/06/2017 Status: F Source: [place] SUMMARY 12:54 AM REPOSITORY [facility] Medical Records Department [address] [place] [address] Emergency Department Summary 12/05/172055 MR#: [id number] Acct: [id number] Name: CRYSTAL CRAMER Rep #: [id number] : 1955 62 From: Hailey Avelar MD PCP: YOU PARKS Status: DEP ER - ER Visit Summary Date of Service: 12/05/17 Chief Complaint: [] sob of breath nausea for about a week History of Present Illness: The patient is a 62 F [] reports shortness of breath and nausea for about a week she was seen by her physicians there was a concern she would gain weight and she might be developing CHF she has diabetes and gastroparesis she has no history of VT PE or DVT, she indicates her shortness of breath have persisted she came in for evaluation she is having normal bowel bladder habits no fever no cough, the Lasix has not resulted in her losing weight or any increased urinary output Her chief complaint is actually that she is very nauseated she feels of her gastroparesis has been exacerbated for unspecified reasons she has been evaluated extensively for the gastroparesis and she is under the care of a allergist/immunologist Physical Examination: [] She is in no distress her vital signs are all within normal range her nose is clear her throat is clear her neck is supple her lungs sound clear heart tones sound regular the abdomen is obese but soft and nontender upper lower extremities unremarkable neurologically she is awake alert moving all 4 Test Results: [] Emergency Department Course and Treatment: [] EKG shows a sinus rhythm her vitals are normal screening labs are obtained Labs are generally unremarkable see those reports, EKG nothing acute her glucose is 330 there is no signs of DKA I want to reassess her she received IV fluids IV Zofran she is feeling better I discussed with her that if she was not feeling well we can arrange for admission but she states she felt much better she wanted to go home I asked her to stay on a bland fluid E diet, follow-up with her allergist/immunologist for her gastroparesis and her physicians for other conditions and return for change in symptoms Treatment Plan: [] Disposition: [] Home stable declined admission Impression: [] Nausea suspect related to gastroparesis diabetes, nonspecific shortness of breath for weeks This note was generated with Instagram dictation software. It may contain incorrect words, spelling, and punctuation that were not noted in review of the chart prior to signing ED Disposition - Plan for ED Patient: Chief Complaint: Shortness of Breath Referrals: You Parks [Primary Care Provider] - What to do if you have Problems For any increased pain, shortness of breath, bleeding, nausea or vomiting, chest pain, or any unexpected problems, contact your Primary Care Provider. Call [facility] ([phone]) or report to the closest Emergency Room. Call 911 if necessary. 12/06/17 0054 <Electronically signed by Hailey Avelar MD> Date Hailey Avelar MD Cosigner Signature (If Indicated): Date CC: YOU PARKS DISCHARGE INSTRUCTION Observed: 12/05/2017 Status: F Source: [facility] 11:07 PM REPOSITORY [facility] Medical Records Department [address] [place] [address] Discharge Instruction 12/05/17 2306 MR#: [id number] Acct: [id number] Name: CRYSTAL CRAMER Rep #: [id number] : 1955 62 From: Hailey Avelar MD PCP: YOU PARKS Status: REG ER ED Disposition - Plan for ED Patient: Chief Complaint: Shortness of Breath Instructions: Gastroparesis Prescriptions: Ondansetron HCl [Zofran] 4 mg PO Q6H PRN #10 tab Referrals: You Parks [Primary Care Provider] - What to do if you have Problems For any increased pain, shortness of breath, bleeding, nausea or vomiting, chest pain, or any unexpected problems, contact your Primary Care Provider. Call [facility] ([phone]) or report to the closest Emergency Room. Call 911 if necessary. 12/05/172306 <Electronically signed by Hailey Avelar MD> Date Hailey Avelar MD Cosigner Signature (If Indicated): Date CC: YOU PARKS DISCHARGE INSTRUCTION Observed: 12/05/2017 Status: F Source: [facility] 10:00 PM [facility] REPOSITORY [facility] Medical Records Department [address] [place] [address] Discharge Instruction 12/05/17 2200 MR#: [id number] Acct: [id number] Name: CRYSTAL CRAMER Rep #: [id number] : 1955 62 From: Hailey Avelar MD PCP: YOU PARKS Status: REG ER ED Disposition - Plan for ED Patient: Chief Complaint: Shortness of Breath Instructions: Gastroparesis Referrals: You Parks [Primary Care Provider] - What to do if you have Problems For any increased pain, shortness of breath, bleeding, nausea or vomiting, chest pain, or any unexpected problems, contact your Primary Care Provider. Call [facility] ([phone]) or report to the closest Emergency Room. Call 911 if necessary. 12/05/170 <Electronically signed by Hailey Avelar MD> Date Hailey Avelar MD Cosigner Signature (If Indicated): Date CC: YOU PARKS CBC W/DIFF, AUTOMATED Collected: 12/05/2017 Status: F Source: [place] 8:15 PM REPOSITORY TYPE CODE TESTS RESULT OUT OF RANGE REFERENCE UNITS LAB L100.1000 4.4-11.0 K/mm3 High WBC 11.1 LAB L100.1200 4.2-5.4 M/mm3 Normal RBC 5.04 LAB L100.1300 12.0-15.0 g/dl Normal HGB 12.7 LAB L100.1400 37-47 % Normal HCT 38.8 LAB L100.1500 81-99 fL Low MCV 77.0 LAB L100.1600 27.0-32.0 pg Low MCH 25.2 LAB L100.1700 32-36 g/gl Normal MCHC 32.7 LAB L100.1810 11.6-14.6 % High RDW CV 15.5 LAB L100.1820 35.1-43.9 fl Normal RDW SD 43.2 LAB L100.1900 150-450 K/mm3 Normal PLT 325 LAB L100.2000 6.2-12.0 fl Normal MPV 9.4 LAB L100.2100 47-70 % High NEUT% 70.5 LAB L100.2200 19-41 % Normal LY% 21.6 LAB L100.2300 0-10 % Normal MONO% 5.8 LAB L100.2400 0-5 % Normal EO% 1.7 LAB L100.2500 0-1 % Normal BASO% 0.3 LAB L100.2550 0.0-0.9 % Normal IM GRAN % 0.100 Result Comment: IG% - Immature Granulocytes (promyelocytes, myelocytes and metamyelocytes) > 1% indicates that a LEFT SHIFT is Present. LAB L100.2620 2.0-7.7 X10 3/uL High Absolute Neut 7.8 LAB L100.2720 0.83-4.51 X10 3/ul Normal Absolute Lymph 2.39 Performed By: #### L100.0100 #### [facility] [address] [place], [place], [address] BASIC METABOLIC Collected: 12/05/2017 Status: F Source: [place] PROFILE (BMP) 8:15 PM REPOSITORY Order Comment: 'TROP' Serial specimen #1, #2, #3, or #4: 1 TYPE CODE TESTS RESULT OUT OF RANGE REFERENCE UNITS LAB L501.0100 74-106 mg/dL High GLU 332 Result Comment: Glucose result greater than or equal to 200 mg/dL suggests DIABETES MELLITUS per A.D.A. criteria. Please note revised GLUCOSE reference range effective 2017. LAB L501.1000 7-18 mg/dL High BUN 31 LAB L501.1100 0.55-1.02 mg/dL High CREAT,SERUM 1.38 Result Comment: The validity of the calculated GFR AND GFRAA in patients over 70 years has not been determined. Clinical correlation is essential. LAB L501.1110 >60 mL/min Low EST GFR 41 Result Comment: Non- GFR Calc LAB L501.1115 >60 mL/min Low EST GFR - AA 50 Result Comment: GFR Calc LAB L501.1255 ml/min Normal Estimated CRCL 39.06 LAB L501.1300 10-20 RATIO High BUN/CRE 22.5 LAB L501.2200 8.5-10 mg/dL Normal .1 CA 8.8 LAB L501.5300 136-14 mmol/L Low 5 NA 132 LAB L501.5600 3.5-5. mmol/L Normal 1 K 4.1 LAB L501.5900 98-107 mmol/L Low CL 93 LAB L501.6100 21.0-3 mmol/L Normal 2.0 CO2 32.0 LAB L501.6200 5-15 Normal GAP 7 Performed By: #### L500.2500, L501.4010 #### [facility] [address] [place], [address] TROPONIN-I Collected: 12/05/2017 Status: F Source: [place] 8:15 PM REPOSITORY Order Comment: 'TROP' Serial specimen #1, #2, #3, or #4: 1 TYPE CODE TESTS RESULT OUT OF RANGE REFERENCE UNITS LAB L501.4010 <0.06 ng/mL Normal < 0.02 TROPONIN-I Result Comment: TROPONIN-I EXPECTED VALUES <0.05 NEGATIVE 0.06 - 0.59 AT RISK OF VT > OR = 0.60 SUGGEST VT Performed By: #### L500.2500, L501.4010 #### [facility] [address] [place], [place], [address] Observed: 12/05/2017 Status: F Source: [place] INFLUENZA A+B (RAPID 8:15 PM [facility]) REPOSITORY FLU A/B Rapid Negative test results should be confirmed by culture. Order Rapid Viral Culture for Influenzae A+B ([id number]) if clinically indicated. Influenza Ag, Direct Presumptive NEGATIVE for Influenza A/B Antigen (See Note) Performed By: #### M101.0101 #### [facility] [address] [place], [place], [address] BNP,B-TYPE NATRIURETIC Collected: 12/05/2017 Status: F Source: [place] PEPTIDE 8:15 PM REPOSITORY TYPE CODE TESTS RESULT OUT OF RANGE REFERENCE UNITS LAB L503.6620 0-100 pg/mL Normal B-TYPE 20.4 LANDON PEP Performed By: #### L503.6620 #### [facility] [address] [place], [address] D-DIMER QUANTITATIVE Collected: 12/05/2017 Status: F Source: [place] (DVT/PE) 8:15 PM REPOSITORY TYPE CODE TESTS RESULT OUT OF RANGE REFERENCE UNITS LAB L300.8000 0.27-0.49 FEU/ug/m Normal D-DIMER 0.45 QUANT Result Comment: NORMAL D-Dimer level (<0.50) indicates no DVT or PE. Performed By: #### L300.8000 #### [facility] [address] [place], [address] CHEST 1 VIEW Observed: 12/05/2017 Status: F Source: [place] (PORTABLE) 7:57 PM REPOSITORY [facility] Imaging Services [address] [place] [address] Chest 1 View (Portable) MR#: [id number] Acct: [id number] Name: BELACRYSTAL L Rep #: [id number] : 1955 F 62 From: Jacob Amaral DO PCP: YOU PARKS Status: REG ER Study: Chest 1 View (Portable) Date of Exam: 12/05/17 Exam# [id number] Ordering Dr: Hailey Avelar MD STUDY: X-RAY CHEST REASON FOR EXAM: Female, 62 years old. Shortness of breath for 2 weeks. TECHNIQUE: Single AP portable view of the chest. COMPARISON: 11 June 2017 FINDINGS: The lungs are clear and expanded. There is no demonstrated pleural abnormality. Normal size heart. Normal mediastinum and judith. Normal visualized pulmonary arteries. Normal visualized aortic arch and descending thoracic aorta. Normal visualized thoracic spine. Normal visualized ribs, clavicles, and shoulders. There is no demonstrated abnormality of the visualized soft tissue structures of the upper abdomen. RAD/Chest 1 View (Portable) IMPRESSION: No evidence of acute cardiopulmonary process. Electronically Signed: Jacob Amaral DO at 20:21 EDT , Service support , CC: MD Mamadou Avelar; YOU PARKS [employer]: Signed EMERGENCY DEPARTMENT Observed: 11/24/2017 Status: F Source: [place] SUMMARY 11:10 PM REPOSITORY [facility] Medical Records Department [address] [place] [address] Emergency Department Summary 11/24/17 2159 MR#: [id number] Acct: [id number] Name: CRYSTAL CRAMER Rep #: [id number] : 1955 62 From: Sarah Khan DO PCP: YOU PARKS Status: DEP ER - ER Visit Summary Date of Service: 11/24/17 Chief Complaint: [] Nausea and vomiting History of Present Illness: The patient is a 62 F [] complaining of nausea and vomiting 6 hours ago. Patient reports a history of gastroparesis which requires fluids and nausea medications. Patient does not want pain medication. She reports she usually this requires fluids and Phenergan. Denies fevers. Denies localized abdominal pain. Denies diarrhea. No other complaints. Physical Examination: [] Afebrile, vital signs stable. Elderly obese female no acute distress. Cardiovascular exam is regular rate and rhythm. Lungs are clear to auscultation. Abdomen is soft and nontender. No lower extremity edema. Test Results: [] BMP normal with exception of a sodium slightly low at 133. Emergency Department Course and Treatment: [] Patient received intravenous normal saline bolus and total of 2 doses of 6.25 of Phenergan with good symptom resolution. Patient reports she has a prescription for Phenergan at home. She will follow-up with her primary care physician. Treatment Plan: [] See above. Disposition: [] Discharge, stable. Impression: [] Nausea and vomiting Gastroparesis This note was generated with Instagram dictation software. It may contain incorrect words, spelling, and punctuation that were not noted in review of the chart prior to signing ED Disposition - Plan for ED Patient: Chief Complaint: Nausea/Vomiting Referrals: You Parks [Primary Care Provider] - What to do if you have Problems For any increased pain, shortness of breath, bleeding, nausea or vomiting, chest pain, or any unexpected problems, contact your Primary Care Provider. Call [facility] ([phone]) or report to the closest Emergency Room. Call 911 if necessary. 11/24/17 2310 <Electronically signed by Sarah Khan DO> Date Sarah Khan DO Cosigner Signature (If Indicated): Date CC: YOU PARKS DISCHARGE INSTRUCTION Observed: 11/24/2017 Status: F Source: [place] 10:02 PM REPOSITORY [facility] Medical Records Department [address] [place] [address] Discharge Instruction 11/24/172200 MR#: [id number] Acct: [id number] Name: CRYSTAL CRAMER Marissa Rep #: [id number] : 1955 62 From: Sarah Khan DO PCP: YOU PARKS Status: REG ER ED Disposition - Plan for ED Patient: Disposition: Home or Assisted Living Chief Complaint: Nausea/Vomiting Instructions: ED Nausea Vomiting, ED Diabetic Gastroparesis Referrals: You Parks [Primary Care Provider] - What to do if you have Problems For any increased pain, shortness of breath, bleeding, nausea or vomiting, chest pain, or any unexpected problems, contact your Primary Care Provider. Call [facility] ([phone]) or report to the closest Emergency Room. Call 911 if necessary. 11/24/172201 <Electronically signed by Sarah Khan DO> Date Sarah Khan DO Cosigner Signature (If Indicated): Date CC: YOU PARKS BASIC METABOLIC Collected: 11/24/2017 Status: F Source: [place] PROFILE ([facility]) 9:04 PM REPOSITORY TYPE CODE TESTS RESULT OUT OF RANGE REFERENCE UNITS LAB L501.0100 74-106 mg/dL High GLU 325 Result Comment: Glucose result greater than or equal to 200 mg/dL suggests DIABETES MELLITUS per A.D.A. criteria. Please note revised GLUCOSE reference range effective 2017. LAB L501.1000 7-18 mg/dL Normal BUN 15 LAB L501.1100 0.55-1.02 mg/dL High CREAT,SERUM 1.15 Result Comment: The validity of the calculated GFR AND GFRAA in patients over 70 years has not been determined. Clinical correlation is essential. LAB L501.1110 >60 mL/min Low EST GFR 51 Result Comment: Non- GFR Calc LAB L501.1115 >60 mL/min Normal EST GFR - AA 61 Result Comment: GFR Calc LAB L501.1255 ml/min Normal Estimated CRCL 46.87 LAB L501.1300 10-20 RATIO Normal BUN/CRE 13.0 LAB L501.2200 8.5-10 mg/dL Normal .1 CA 8.7 LAB L501.5300 136-14 mmol/L Low 5 NA 133 LAB L501.5600 3.5-5. mmol/L Normal 1 K 4.1 LAB L501.5900 98-107 mmol/L Normal CL 100 LAB L501.6100 21.0-3 mmol/L Normal 2.0 CO2 24.0 LAB L501.6200 5-15 Normal GAP 9 Performed By: #### L500.2500 #### [facility] [address] [place], [place], [address] .GFR Collected: 11/21/2017 Status: F Source: [facility] 10:01 AM [facility] REPOSITORY TYPE CODE TESTS RESULT OUT OF REFERENCE UNITS RANGE LAB GFRAA(LOINC ml/min/1.73 ) sqm GFR 65 English Result Comment: GFR Population mean for , Non- Americans Ages 20-29 = 116 mL/min/1.73 sq.m. Ages 30-39 = 107 mL/min/1.73 sq.m. Ages 40-49 = 99 mL/min/1.73 sq.m. Ages 50-59 = 93 mL/min/1.73 sq.m. Ages 60-69 = 85 mL/min/1.73 sq.m. Ages 70+ = 75 mL/min/1.73 sq.m. Chronic Kidney Disease: Less than 60 mL/min/1.73 square meters End Stage Renal Disease: Less than 15 mL/min/1.73 square meters LAB GFRNO(LOINC) ml/min/1.73sqm GFR Non- 54 Result Comment: GFR Population mean for , Non- Americans Ages 20-29 = 116 mL/min/1.73 sq.m. Ages 30-39 = 107 mL/min/1.73 sq.m. Ages 40-49 = 99 mL/min/1.73 sq.m. Ages 50-59 = 93 mL/min/1.73 sq.m. Ages 60-69 = 85 mL/min/1.73 sq.m. Ages 70+ = 75 mL/min/1.73 sq.m. Chronic Kidney Disease: Less than 60 mL/min/1.73 square meters End Stage Renal Disease: Less than 15 mL/min/1.73 square meters Performed By: #### GFR, CMP, LIPID, TSH #### [address] [address] CMP Collected: 11/21/2017 Status: F Source: [facility] 10:01 AM [facility] REPOSITORY TYPE CODE TESTS RESULT OUT OF REFERENCE UNITS RANGE LAB 1547-9 80-115 mg/dL GLUCOSE High 146 LAB NA(LOINC) 136-146 mEq/L Sodium Level 140 LAB K(LOINC) 3.5-5.1 mEq/L Potassium Level 4.4 LAB CL(LOINC) 98-107 mEq/L Chloride 101 LAB CO2(LOINC) 23-31 mEq/L CO2 28 LAB EBAL(LOINC mEq/L ) Electrolyte Balance 11.0 LAB BUN(LOINC) 7.0-18.0 mg/dL BUN 17.6 LAB CRE(LOINC) 0.6-1.2 mg/dL Creatinine Lvl (s) 1.0 LAB BC(LOINC) 7-27 ratio BUN/Creatinine 18 Ratio LAB CA(LOINC) 8.4-10.2 mg/dL Calcium Lvl 10.0 LAB PROT(LOINC 6.0-8.3 G/dL ) Total Protein 6.9 LAB ALB(LOINC) 3.4-4.8 G/dL Albumin Level 3.9 LAB GLB(LOINC) G/dL Globulin 3.0 LAB AG(LOINC) 1.1-2.5 ratio A/G Ratio 1.3 LAB BILT(LOINC 0.2-1.0 mg/dL ) Bili Total 0.7 LAB AP(LOINC) 40-135 IU/L Alk Phos High 225 LAB AST(LOINC) 10-40 IU/L AST/SGOT High 41 LAB ALT(LOINC) 10-35 IU/L ALT/SGPT 33 Performed By: #### GFR, CMP, LIPID, TSH #### [address] [address] LIPID Collected: 11/21/2017 Status: F Source: [facility] [employer] [facility] 10:01 [facility] REPOSITORY TYPE CODE TESTS RESULT OUT OF REFERENCE UNITS RANGE LAB CHOL(LOINC 131-200 mg/dL ) Cholesterol High 202 Result Comment: Cholesterol Reference Interval: Less than 200 Desirable 200-239 Borderline high risk 240 and above High risk LAB TRIG(LOINC) 40-150 mg/dL Triglycerides 127 Result Comment: Triglyceride Reference Interval: Less than 150 Normal 150-199 Borderline high risk 200-499 High risk 500 or higher Very high risk LAB HD(LOINC) 35-90 mg/dL HDL Cholesterol 58 Result Comment: HDL Reference Interval: Less than 40 Low - high risk 60 or above Optimal/lowers risk LAB LDL(LOINC) 0-130 mg/dL LDL Cholesterol 119 Result Comment: LDL is a calculated result and requires a 12-hr fast. LDL Reference Interval: Less than 100 Optimal 100-129 Near or above optimal 130-159 Borderline high risk 160-189 High risk 190 and above Very high risk Performed By: #### GFR, CMP, LIPID, TSH #### [facility] [address] TSH Collected: 11/21/2017 Status: F Source: [employer] [employer] 10:01 [facility] REPOSITORY TYPE CODE TESTS RESULT OUT OF RANGE REFERENCE UNITS LAB TSH(LOINC) 0.27-4.20 mcIU/mL TSH 2.38 Performed By: #### GFR, CMP, LIPID, TSH #### [address] [address] TOXSC Collected: 11/06/2017 Status: F Source: [facility] 1:31 PM [facility] REPOSITORY TYPE CODE TESTS RESULT OUT OF REFERENCE UNITS RANGE LAB UTCA(LOINC ) U TCA (AO) Negative LAB AOUBAR(TENA NC) U Stephanie (AO) Negative LAB AOUMETH(LO INC) U Methadone (AO) Negative LAB AOUBNZ(TENA NC) U Zion (AO) Negative LAB AOUCAN(TENA NC) U Cannab (AO) Negative LAB [id number](LOINC) Urine Opiates (AO) Positive LAB AOUAMP(TENA NC) U Ampheta (AO) Negative LAB AOUCOC(TENA NC) U Cocaine (AO) Negative LAB AOUPCP(TENA NC) U PCP (AO) Negative LAB [id number](LOINC) QC TOXSC Valid Performed By: #### TOXSC #### [address] [address] PROGRESS Observed: 10/22/2017 Status: COMPLETED Source: [place] 2:21 PM [facility] REPOSITORY O ID: [id number] Author: Cele (Rn) ALMA Vargas Service: (none) Author Type: Registered Nurse Type: Progress Notes Filed: 10/22/2017 2:24 PM Note Text: Smartll Test Report - [id number] Test start date: 10/11/2017 9:48 AM Interpretation date: 10/22/2017 Ordering physician: Mukul Steven DO Patient Information Name: Crystal Cramer ID: [id number] date: 1955 Height ft. in.: 5' 6 Gender: Female Weight lbs.: 240 Test Statistics Transit Times (h:min) GET: 1:15 ? 4 h suggests delayed gastric emptying. SBTT: 3:26 Normal: 2.5 - 6 h CTT: 71:39 > 59 h indicates delayed colonic transit. SLBTT: 75:06 > 64 h indicates delayed combined bowel transit. WGTT: 76:21 Normal: < 73 h Gastric pH High: 6.1 Low: 2.1 Range annotations (h:min) Start: 0:52, End: 1:22 30 min. prior Contractions/min: 2.6 Mean amplitude: 15.18 Motility index: 72.2 Start: 1:22, End: 1:52 30 min. post Contractions/min: 1.93 Mean amplitude: 13.18 Motility index: 37.94 Interpretations and Recommendations Interpretations Did not observe pH baseline below 4 in the stomach. No evidence of additional meal 6 hours into test. Observed a gradually increasing pH profile. Observed normal gastric emptying. Observed normal SBTT. Observed delayed CTT. Clinical Management Plans delayed colonic transit otherwise normal study. No evidence of gastroparesis Signature _Dr Steven Date _10/22/17 HOSP Observed: 10/22/2017 Status: COMPLETED Source: [place] 12:00 AM [facility] REPOSITORY Patient Update (GASTMN) CRYSTAL CRAMER Marissa ([id number]) 1955 F Date Time Provider Department 10/22/17 CELE VARGAS) [facility] During your visit today, we recorded the following information about you: Cele Vargas RN, RN 10/22/2017 2:24 PM Signed [facility] Test Report - [id number] Test start date: 10/11/2017 9:48 AM Interpretation date: 10/22/2017 Ordering physician: Mukul Steven DO Patient Information Name: Bela Crystal L. ID: [id number] date: 1955 Height ft. in.: 5' 6ANDquot; Gender: Female Weight lbs.: 240 Test Statistics Transit Times (h:min) GET: 1:15 ? 4 h suggests delayed gastric emptying. SBTT: 3:26 Normal: 2.5 - 6 h CTT: 71:39 ANDgt; 59 h indicates delayed colonic transit. SLBTT: 75:06 ANDgt; 64 h indicates delayed combined bowel transit. WGTT: 76:21 Normal: ANDlt; 73 h Gastric pH High: 6.1 Low: 2.1 Range annotations (h:min) Start: 0:52, End: 1:22 30 min. prior Contractions/min: 2.6 Mean amplitude: 15.18 Motility index: 72.2 Start: 1:22, End: 1:52 30 min. post Contractions/min: 1.93 Mean amplitude: 13.18 Motility index: 37.94 Interpretations and Recommendations Interpretations Did not observe pH baseline below 4 in the stomach. No evidence of additional meal 6 hours into test. Observed a gradually increasing pH profile. Observed normal gastric emptying. Observed normal SBTT. Observed delayed CTT. Clinical Management Plans delayed colonic transit otherwise normal study. No evidence of gastroparesis Signature _Dr Steven Date _10/22/17 Allergies As of Date: 10/22/2017 Noted Allergy Reaction BACTRIM (SULFAMETHOXAZOLE-TRIMETH*07/31/2017 4 - Hives CIPROFLOXACIN 06/10/2013 16 - Unknown FLEXERIL (CYCLOBENZAPRINE) 06/10/2013 16 - Unknown METFORMIN 06/28/2017 14 - Other: See Comments Comments: Migraines TORADOL (KETOROLAC) 03/22/2006 band aids [Other] 05/27/2007 Date Reviewed: 07/31/2017 Reviewed by: Mukul Steven - Fully Assessed Reason for Visit: SmartPill procedure results [Other] Prescriptions as of 10/22/2017 Sig: PROMETHAZINE 25 MG TABLET Take 1 tablet by mouth every * IMMUNE GLOB,GAMMA(IGG) 10 GRA* 400mg/kg IV weekly for 12 wee* TRIMETHOBENZAMIDE 300 MG CAPS* Take 1 capsule by mouth three* MIRTAZAPINE 15 MG TABLET Take 1 tablet by mouth daily * MORPHINE 15 MG IMMEDIATE RELE* Take 15 mg by mouth every 4 h* LAMOTRIGINE 100 MG TABLET Take 100 mg by mouth twice da* LEVOTHYROXINE 50 MCG CAPSULE Take by mouth once daily. SERTRALINE 100 MG TABLET Take 100 mg by mouth once scotty* ALLOPURINOL 100 MG TABLET Take 100 mg by mouth once scotty* VALSARTAN 80 MG TABLET Take 80 mg by mouth once alicia* ASPIRIN 81 MG TABLET,DELAYED * Take 81 mg by mouth once alicia* TRESIBA FLEXTOUCH U-100 SUBCU* Inject 120 mg subcutaneously * HUMALOG SUBCUTANEOUS Inject subcutaneously as dir* SUMATRIPTAN SUCCINATE ORAL Take by mouth as needed. METOCLOPRAMIDE 10 MG TABLET Take 1 tablet by mouth three * ONDANSETRON HCL 4 MG TABLET Take 1 tablet by mouth every * MONTELUKAST 10 MG TABLET Take 10 mg by mouth daily at * METOCLOPRAMIDE 5 MG TABLET Take 5 mg by mouth four times* SUCRALFATE 1 GRAM TABLET Take 1 g by mouth four times * OLMESARTAN 40 MG TABLET Take 40 mg by mouth once alicia* NOVOLOG PENFILL SUBCUTANEOUS Inject subcutaneously. NOVOLOG FLEXPEN SUBCUTANEOUS Inject subcutaneously. Slidi* EXENATIDE ER 2 MG/0.65 ML SUB* Inject subcutaneously. ROPINIROLE 1 MG TABLET Take 1 mg by mouth once daily. SIMVASTATIN 40 MG TABLET Take 40 mg by mouth daily at * PREGABALIN 75 MG CAPSULE Take 150 mg by mouth twice da* OMEPRAZOLE 40 MG CAPSULE,HUMBLE* Take 40 mg by mouth once alicia* VICODIN ORAL Take by mouth. Problem List As Of Date 10/22/2017 Noted Resolved TB LUNG NODULAR-UNSPEC [A15.0] INVALID FOR* DIARRHEA NOS [R19.7] INVALID FOR* Nausea AND vomiting [R11.2] INVALID FOR* Follow-up and Disposition History Recorded Encounter Status:Closed by [facility]22[facility] Observed: 10/22/2017 Status: COMPLETED Source: [place] 12:00 AM [facility] REPOSITORY Telephone (GASTOH) CRYSTAL CRAMER ([id number]) 1955 F Date Time Provider Department 10/22/17 MUKUL STEVEN [facility] During your visit today, we recorded the following information about you: Manuel Meza RN, RN 10/22/2017 5:10 PM Signed Patient is calling Dr. Steven's office to find out plan of care now that Smart Pill results are in. She is still awaiting IVIG approval but so far has been denied. She is not sure if she should call and schedule an appt to discuss all of this? Mukul Steven, DO 10/22/2017 5:13 PM Signed The next step would be to treat her with IVIG if it's possible. 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 The gastric emptying was actually normal. Manuel Meza RN, RN 10/23/2017 11:55 AM Signed Called patient and relayed Dr. Steven's message. Provided education on the smart pill results and reinforced ed around autoimmune antibody and treatment. Patient is going to start with an OTC laxative on a daily basis to see if she can get her colon moving more. She currently uses miralax on a prn basis and will start using daily. Explained that appeal letter was faxed to [employer] yesterday regarding her IVIG therapy. Offered to have her schedule appt with neurology and explained consult was in the system. She states she wants to try OTC Miralax first to see if that helps her symptoms. AMBULATORY PATIENT EDUCATION NOTE TOPIC: Smart pill and autoimmune antibody READINESS TO LEARN COGNITIVE ABILITY: Alert and oriented MOTIVATION TO LEARN: Interested FAMILY SUPPORT: Unable to assess - Family not present INSTRUCTION PROVIDED TO: Patient PATIENT LEARNS BEST BY: Multiple Methods FACTORS AFFECTING LEARNING: None PHYSICAL LIMITATIONS AFFECTING LEARNING: None LEARNING RESPONSE DIAGNOSIS: Constipation and autoimmune antibody postive METHOD OF INSTRUCTION: Verbal instruction PATIENT / FAMILY RESPONSE: Verbalizes understanding of: Smart pill and autoimmune antibody FOLLOW-UP PLAN: Patient instructed to call with any further issues Contact information given. SUPPLEMENTAL MATERIAL: None REFERRAL (RECOMMENDATION): None Electronically Signed By: Manuel Meza RN In Department: GASTROENTEROLOGY Allergies As of Date: 10/22/2017 Noted Allergy Reaction BACTRIM (SULFAMETHOXAZOLE-TRIMETH*07/31/2017 4 - Hives CIPROFLOXACIN 06/10/2013 16 - Unknown FLEXERIL (CYCLOBENZAPRINE) 06/10/2013 16 - Unknown METFORMIN 06/28/2017 14 - Other: See Comments Comments: Migraines TORADOL (KETOROLAC) 03/22/2006 band aids [Other] 05/27/2007 Date Reviewed: 07/31/2017 Reviewed by: Mukul Steven - Fully Assessed Reason for Visit: Care Coordination [3491] Cmt: Gastroparesis Clinic: Smart Pill results Patient Education [91] Reason For Visit History Recorded Prescriptions as of 10/22/2017 Sig: PROMETHAZINE 25 MG TABLET Take 1 tablet by mouth every * IMMUNE GLOB,GAMMA(IGG) 10 GRA* 400mg/kg IV weekly for 12 wee* TRIMETHOBENZAMIDE 300 MG CAPS* Take 1 capsule by mouth three* MIRTAZAPINE 15 MG TABLET Take 1 tablet by mouth daily * MORPHINE 15 MG IMMEDIATE RELE* Take 15 mg by mouth every 4 h* LAMOTRIGINE 100 MG TABLET Take 100 mg by mouth twice da* LEVOTHYROXINE 50 MCG CAPSULE Take by mouth once daily. SERTRALINE 100 MG TABLET Take 100 mg by mouth once scotty* ALLOPURINOL 100 MG TABLET Take 100 mg by mouth once scotty* VALSARTAN 80 MG TABLET Take 80 mg by mouth once alicia* ASPIRIN 81 MG TABLET,DELAYED * Take 81 mg by mouth once alicia* TRESIBA FLEXTOUCH U-100 SUBCU* Inject 120 mg subcutaneously * HUMALOG SUBCUTANEOUS Inject subcutaneously as dir* SUMATRIPTAN SUCCINATE ORAL Take by mouth as needed. METOCLOPRAMIDE 10 MG TABLET Take 1 tablet by mouth three * ONDANSETRON HCL 4 MG TABLET Take 1 tablet by mouth every * MONTELUKAST 10 MG TABLET Take 10 mg by mouth daily at * METOCLOPRAMIDE 5 MG TABLET Take 5 mg by mouth four times* SUCRALFATE 1 GRAM TABLET Take 1 g by mouth four times * OLMESARTAN 40 MG TABLET Take 40 mg by mouth once alicia* NOVOLOG PENFILL SUBCUTANEOUS Inject subcutaneously. NOVOLOG FLEXPEN SUBCUTANEOUS Inject subcutaneously. Slidi* EXENATIDE ER 2 MG/0.65 ML SUB* Inject subcutaneously. ROPINIROLE 1 MG TABLET Take 1 mg by mouth once daily. SIMVASTATIN 40 MG TABLET Take 40 mg by mouth daily at * PREGABALIN 75 MG CAPSULE Take 150 mg by mouth twice da* OMEPRAZOLE 40 MG CAPSULE,HUMBLE* Take 40 mg by mouth once alicia* VICODIN ORAL Take by mouth. 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 REPOSITORY HNO ID: [id number] Author: Cele NguyenRn) ALMA Vargas Service: (none) Author Type: Registered Nurse Type: Progress Notes Filed: 10/11/2017 10:14 AM Note Text: Referring MD: ?Mukul Steven, DO Dx: ?gastroparesis Date of SmartPill Procedure: ?10/11/2017 ?SmartPill ingested without difficulty at 10:00am. ?Discharge instructions completed and given to patient. Return of Equipment: ?VEENA Vargas, ALMA Capsule Endoscopy Nurse YONATAN Observed: 10/08/2017 Status: COMPLETED Source: [place] 12:00 AM [facility] REPOSITORY Telephone (GASTMN) CRYSTAL CRAMER ([id number]) 1955 F Date Time Provider Department 10/08/17 MUKUL STEVEN [facility] During your visit today, we recorded the following information about you: Manuel Meza RN, RN 10/08/2017 4:16 PM Signed Contacted [employer] [phone] (option 1 and then option 0) to obtain a copy of patient's denial letter for IVIG. They are to fax to the office today. Manuel Meza RN, RN 10/08/2017 5:19 PM Signed Received copy of denial letter from [employer] 10/08/17 and forwarded to Erika at [facility]. Allergies As of Date: 10/08/2017 Noted Allergy Reaction BACTRIM (SULFAMETHOXAZOLE-TRIMETH*07/31/2017 4 - Hives CIPROFLOXACIN 06/10/2013 16 - Unknown FLEXERIL (CYCLOBENZAPRINE) 06/10/2013 16 - Unknown METFORMIN 06/28/2017 14 - Other: See Comments Comments: Migraines TORADOL (KETOROLAC) 03/22/2006 band aids [Other] 05/27/2007 Date Reviewed: 07/31/2017 Reviewed by: Mukul Steven - Fully Assessed Reason for Visit: Care Coordination [3491] Cmt: Gastroparesis Clinic: Ivig denial letter request Prescriptions as of 10/08/2017 Sig: PROMETHAZINE 25 MG TABLET Take 1 tablet by mouth every * IMMUNE GLOB,GAMMA(IGG) 10 GRA* 400mg/kg IV weekly for 12 wee* TRIMETHOBENZAMIDE 300 MG CAPS* Take 1 capsule by mouth three* MIRTAZAPINE 15 MG TABLET Take 1 tablet by mouth daily * MORPHINE 15 MG IMMEDIATE RELE* Take 15 mg by mouth every 4 h* LAMOTRIGINE 100 MG TABLET Take 100 mg by mouth twice da* LEVOTHYROXINE 50 MCG CAPSULE Take by mouth once daily. SERTRALINE 100 MG TABLET Take 100 mg by mouth once scotty* ALLOPURINOL 100 MG TABLET Take 100 mg by mouth once scotty* VALSARTAN 80 MG TABLET Take 80 mg by mouth once alicia* ASPIRIN 81 MG TABLET,DELAYED * Take 81 mg by mouth once alicia* TRESIBA FLEXTOUCH U-100 SUBCU* Inject 120 mg subcutaneously * HUMALOG SUBCUTANEOUS Inject subcutaneously as dir* SUMATRIPTAN SUCCINATE ORAL Take by mouth as needed. METOCLOPRAMIDE 10 MG TABLET Take 1 tablet by mouth three * ONDANSETRON HCL 4 MG TABLET Take 1 tablet by mouth every * MONTELUKAST 10 MG TABLET Take 10 mg by mouth daily at * METOCLOPRAMIDE 5 MG TABLET Take 5 mg by mouth four times* SUCRALFATE 1 GRAM TABLET Take 1 g by mouth four times * OLMESARTAN 40 MG TABLET Take 40 mg by mouth once alicia* NOVOLOG PENFILL SUBCUTANEOUS Inject subcutaneously. NOVOLOG FLEXPEN SUBCUTANEOUS Inject subcutaneously. Slidi* EXENATIDE ER 2 MG/0.65 ML SUB* Inject subcutaneously. ROPINIROLE 1 MG TABLET Take 1 mg by mouth once daily. SIMVASTATIN 40 MG TABLET Take 40 mg by mouth daily at * PREGABALIN 75 MG CAPSULE Take 150 mg by mouth twice da* OMEPRAZOLE 40 MG CAPSULE,HUMBLE* Take 40 mg by mouth once alicia* VICODIN ORAL Take by mouth. 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 REPOSITORY Telephone (GASTMN) CRYSTAL CRAMER ([id number]) 1955 F Date Time Provider Department 09/12/17 MUKUL STEVEN GASTMN During your visit today, we recorded the following information about you: Manuel Meza, RN, RN 09/12/2017 1:59 PM Signed Patient calling because Tigan is not working to control her nausea and is causing her to itch. She states the phenergan has helped in the past and would like to request an order for it. Pharmacy is confirmed. Nicolas Godoy MD PhD 09/12/2017 9:49 PM Signed I do not see phenergan in her prior medications. script sent for 30 days, please discuss with Dr Steven after his return there is a drug interaction between reglan and phenergan. Please let her know. she can discuss with her pharmacist. Manuel Meza RN, RN 09/16/2017 2:07 PM Signed Called and relayed medication education to patient. Explained she is not to use phenergan if she is taking Reglan because there is an interaction. Patient states she understands. AMBULATORY PATIENT EDUCATION NOTE TOPIC: Medication interaction READINESS TO LEARN COGNITIVE ABILITY: Alert and oriented MOTIVATION TO LEARN: Interested FAMILY SUPPORT: Unable to assess - Family not present INSTRUCTION PROVIDED TO: Patient PATIENT LEARNS BEST BY: Multiple Methods FACTORS AFFECTING LEARNING: None PHYSICAL LIMITATIONS AFFECTING LEARNING: none LEARNING RESPONSE DIAGNOSIS: gastroparesis METHOD OF INSTRUCTION: Verbal instruction PATIENT / FAMILY RESPONSE: Verbalizes understanding of: medication interaction between reglan and phenergan and not to take together FOLLOW-UP PLAN: Patient instructed to call with any further issues SUPPLEMENTAL MATERIAL: None REFERRAL (RECOMMENDATION): None Electronically Signed By: Manuel Meza RN In Department: GASTROENTEROLOGY Allergies As of Date: 09/12/2017 Noted Allergy Reaction BACTRIM (SULFAMETHOXAZOLE-TRIMETH*07/31/2017 4 - Hives CIPROFLOXACIN 06/10/2013 16 - Unknown FLEXERIL (CYCLOBENZAPRINE) 06/10/2013 16 - Unknown METFORMIN 06/28/2017 14 - Other: See Comments Comments: Migraines TORADOL (KETOROLAC) 03/22/2006 band aids [Other] 05/27/2007 Date Reviewed: 07/31/2017 Reviewed by: Mukul Steven - Fully Assessed Reason for Visit: Care Coordination [3491] Cmt: Gastroparesis Clinic: anti nasuea mediation request Patient Education [91] Cmt: Phenergan/Reglan interaction Reason For Visit History Recorded Primary Visit Diagnosis:Nausea [R11.0] Order(s):promethazine (PHENERGAN) 25 mg tabletTake 1 tablet by mouth every 8 hours as needed (for nausea).Disp: 90 tabletRfl: 0 Prescriptions as of 09/12/2017 Sig: PROMETHAZINE 25 MG TABLET Take 1 tablet by mouth every * IMMUNE GLOB,GAMMA(IGG) 10 GRA* 400mg/kg IV weekly for 12 wee* TRIMETHOBENZAMIDE 300 MG CAPS* Take 1 capsule by mouth three* MIRTAZAPINE 15 MG TABLET Take 1 tablet by mouth daily * MORPHINE 15 MG IMMEDIATE RELE* Take 15 mg by mouth every 4 h* LAMOTRIGINE 100 MG TABLET Take 100 mg by mouth twice da* LEVOTHYROXINE 50 MCG CAPSULE Take by mouth once daily. SERTRALINE 100 MG TABLET Take 100 mg by mouth once scotty* ALLOPURINOL 100 MG TABLET Take 100 mg by mouth once scotty* VALSARTAN 80 MG TABLET Take 80 mg by mouth once alicia* ASPIRIN 81 MG TABLET,DELAYED * Take 81 mg by mouth once alicia* TRESIBA FLEXTOUCH U-100 SUBCU* Inject 120 mg subcutaneously * HUMALOG SUBCUTANEOUS Inject subcutaneously as dir* SUMATRIPTAN SUCCINATE ORAL Take by mouth as needed. METOCLOPRAMIDE 10 MG TABLET Take 1 tablet by mouth three * ONDANSETRON HCL 4 MG TABLET Take 1 tablet by mouth every * MONTELUKAST 10 MG TABLET Take 10 mg by mouth daily at * METOCLOPRAMIDE 5 MG TABLET Take 5 mg by mouth four times* SUCRALFATE 1 GRAM TABLET Take 1 g by mouth four times * OLMESARTAN 40 MG TABLET Take 40 mg by mouth once alicia* NOVOLOG PENFILL SUBCUTANEOUS Inject subcutaneously. NOVOLOG FLEXPEN SUBCUTANEOUS Inject subcutaneously. Slidi* EXENATIDE ER 2 MG/0.65 ML SUB* Inject subcutaneously. ROPINIROLE 1 MG TABLET Take 1 mg by mouth once daily. SIMVASTATIN 40 MG TABLET Take 40 mg by mouth daily at * PREGABALIN 75 MG CAPSULE Take 150 mg by mouth twice da* OMEPRAZOLE 40 MG CAPSULE,HUMBLE* Take 40 mg by mouth once alicia* VICODIN ORAL Take by mouth. Problem List As Of Date 09/12/2017 Noted Resolved TB LUNG NODULAR-UNSPEC [A15.0] INVALID FOR* DIARRHEA NOS [R19.7] INVALID FOR* Nausea AND vomiting [R11.2] INVALID FOR* Prescriptions ordered this encounter Disp Refills Start End PROMETHAZINE 25 MG TABLET 90 t* 0 09/12/2017 10/12/2017 Route: ORAL Sig: Take 1 tablet by mouth every 8 hours as needed (for nausea). Encounter Status:Closed by JENNIE CURRY, NICOLAS PHD on 09/12/17 LIPID Collected: 08/21/2017 Status: F Source: [facility] 10:00 AM [facility] REPOSITORY TYPE CODE TESTS RESULT OUT OF REFERENCE UNITS RANGE LAB CHOL(LOINC 131-200 mg/dL ) Cholesterol 147 Result Comment: Cholesterol Reference Interval: Less than 200 Desirable 200-239 Borderline high risk 240 and above High risk LAB TRIG(LOINC) 40-150 mg/dL Triglycerides 135 Result Comment: Triglyceride Reference Interval: Less than 150 Normal 150-199 Borderline high risk 200-499 High risk 500 or higher Very high risk LAB HD(LOINC) 35-90 mg/dL HDL Cholesterol 47 Result Comment: HDL Reference Interval: Less than 40 Low - high risk 60 or above Optimal/lowers risk LAB LDL(LOINC) 0-130 mg/dL LDL Cholesterol 73 Result Comment: LDL is a calculated result and requires a 12-hr fast. LDL Reference Interval: Less than 100 Optimal 100-129 Near or above optimal 130-159 Borderline high risk 160-189 High risk 190 and above Very high risk Performed By: #### GFR, LIPID, TSH, CMP #### Maxime [address] [place], [place] [address] CMP Collected: 08/21/2017 Status: F Source: [place] 10:00 AM [facility] REPOSITORY TYPE CODE TESTS RESULT OUT OF REFERENCE UNITS RANGE LAB 1547-9 80-115 mg/dL GLUCOSE High 210 LAB NA(LOINC) 136-146 mEq/L Low Sodium Level 133 LAB K(LOINC) 3.5-5.1 mEq/L Potassium Level 4.8 LAB CL(LOINC) 98-107 mEq/L Chloride 99 LAB CO2(LOINC) 23-31 mEq/L CO2 25 LAB EBAL(LOINC mEq/L ) Electrolyte Balance 9.0 LAB BUN(LOINC) 7.0-18.0 mg/dL BUN 13.6 LAB CRE(LOINC) 0.6-1.2 mg/dL Creatinine Lvl (s) 0.9 LAB BC(LOINC) 7-27 ratio BUN/Creatinine 15 Ratio LAB CA(LOINC) 8.4-10.2 mg/dL Calcium Lvl 9.3 LAB PROT(LOINC 6.0-8.3 G/dL ) Total Protein 6.3 LAB ALB(LOINC) 3.4-4.8 G/dL Albumin Level 3.6 LAB GLB(LOINC) G/dL Globulin 2.7 LAB AG(LOINC) 1.1-2.5 ratio A/G Ratio 1.3 LAB BILT(LOINC 0.2-1.0 mg/dL ) Bili Total 0.6 LAB AP(LOINC) 40-135 IU/L Alk Phos High 283 LAB AST(LOINC) 10-40 IU/L AST/SGOT 40 LAB ALT(LOINC) 10-35 IU/L ALT/SGPT 33 Performed By: #### GFR, LIPID, TSH, CMP #### Maxime [place] [address] [place], [place] [address] .GFR Collected: 08/21/2017 Status: F Source: [place] 10:00 AM [facility] REPOSITORY TYPE CODE TESTS RESULT OUT OF REFERENCE UNITS RANGE LAB GFRAA(LOINC ml/min/1.73 ) sqm GFR 75 English Result Comment: GFR Population mean for , Non- Americans Ages 20-29 = 116 mL/min/1.73 sq.m. Ages 30-39 = 107 mL/min/1.73 sq.m. Ages 40-49 = 99 mL/min/1.73 sq.m. Ages 50-59 = 93 mL/min/1.73 sq.m. Ages 60-69 = 85 mL/min/1.73 sq.m. Ages 70+ = 75 mL/min/1.73 sq.m. Chronic Kidney Disease: Less than 60 mL/min/1.73 square meters End Stage Renal Disease: Less than 15 mL/min/1.73 square meters LAB GFRNO(LOINC) ml/min/1.73sqm GFR Non- >60 Result Comment: GFR Population mean for , Non- Americans Ages 20-29 = 116 mL/min/1.73 sq.m. Ages 30-39 = 107 mL/min/1.73 sq.m. Ages 40-49 = 99 mL/min/1.73 sq.m. Ages 50-59 = 93 mL/min/1.73 sq.m. Ages 60-69 = 85 mL/min/1.73 sq.m. Ages 70+ = 75 mL/min/1.73 sq.m. Chronic Kidney Disease: Less than 60 mL/min/1.73 square meters End Stage Renal Disease: Less than 15 mL/min/1.73 square meters Performed By: #### GFR, LIPID, TSH, CMP #### [address] [address] TSH Collected: 08/21/2017 Status: F Source: [facility] 10:00 AM [facility] REPOSITORY TYPE CODE TESTS RESULT OUT OF RANGE REFERENCE UNITS LAB TSH(LOINC) 0.27-4.20 mcIU/mL High TSH 8.22 Result Comment: Above normal(expected)range Performed By: #### GFR, LIPID, TSH, CMP #### [address] [address] ALLERGIES ALLERGIES DATE TYPE / CODE NAME / CODE REACTION SEVERITY SOURCE Drug cyclobenzaprine Rash Unknown [place] 8 Allergy/987832288( HCl/N650694896(RXNO [facility]OM[facility]) RM) Hospital Repository Drug ketorolac Chest Unknown [place] 8 Allergy/952329225( tromethamine/Y60965 tightness [facility]) 3539(RXNORM) Hospital Repository Drug ciprofloxacin Shortness of Unknown [place] 8 Allergy/511391051( HCl/G774568131(RXNO breath [facility]) ) Hospital Repository Drug valacyclovir Other Unknown [place] 8 Allergy/779883480( HCl/S030266742(RXNO [facility]) ) Hospital Repository Drug sulfamethoxazole/F0 Itching Unknown [place] 8 Allergy/709698938( 95025114(RXNORM) [facility]) Hospital Repository Drug trimethoprim/D44159 Itching Unknown [place] 8 Allergy/397726680( 2873(RXNORM) [facility]) Hospital Repository Drug ciprofloxacin/F0060 Shortness of Unknown [place] 8 Allergy/924299896( [address](RXNORM) breath [facility]) Hospital Repository Drug metformin/N67721632 Other Unknown [place] 8 Allergy/467018726( 4(RXNORM) [facility]) Hospital Repository Drug cyclobenzaprine/F00 Rash Unknown [place] 8 Allergy/119476087( 1585837(RXNORM) [facility]) Hospital Repository DRUG/470299629(SNO SULFAMETHOXAZOLE-TR HIVES [place] [address]) IMETHOPRIM Clinic Main [place] Repository DRUG/268964949(SNO SULFAMETHOXAZOLE-TR HIVES [place] [address]) IMETHOPRIM Clinic Main [place] Repository DRUG METFORMIN OTHER: SEE [place] INGREDI/983761240( Clinic Main SNOMED CT) [place] Repository DRUG CIPROFLOXACIN RASH Med [place] INGREDI/865814121( Clinic Main SNOMED CT) [place] Repository DRUG CYCLOBENZAPRINE RASH Med [place] INGREDI/456935481( Clinic Main SNOMED CT) [place] Repository DRUG CIPROFLOXACIN UNKNOWN [place] INGREDI/527307776( Clinic Main SNOMED CT) [place] Repository DRUG CYCLOBENZAPRINE UNKNOWN [place] INGREDI/049567045( Clinic Main SNOMED CT) [place] Repository Miscellaneous OTHER [place] 7 Allergy/548381786( [facility] Main SNOMED CT) [place] Repository DRUG KETOROLAC OTHER: SEE C High [place] 6 INGREDI/658287391( [facility] Main SNOMED CT) [place] Repository DRUG KETOROLAC [place] 6 INGREDI/815303585( [facility] Main SNOMED CT) [place] Repository ENCOUNTERS ENCOUNTERS ADMIT/DISCHARGE ACCOUNT NUMBER ADMITTING ENCOUNTER LOCATION SOURCE CLASS 07/23/2018/07/23/20 [id number] Ambulatory [address] Repository 07/20/2018/07/20/20 [id number] Emergency [address] ding:ED Repository 07/19/2018/07/19/20 [id number] Emergency [address] ding:ED Repository 07/19/2018/07/19/20 [id number] Emergency [address] ding:ED Repository 07/09/2018/07/10/20 [id number] MIGNON CURRY, Ambulatory BBuilding:MS Maxime Recinos [facility]oom[facility] Repository 07/04/2018 [id number] Ambulatory BMSBuilding: [facility] Repository 07/04/2018 [id number] Ambulatory [facility] ding:[facility] Repository 06/26/2018/06/26/20 [id number] Ambulatory BMSBuilding: [place] [facility] Repository 06/25/2018 [id number] Ambulatory BMSBuilding: [place] BMS[facility] Repository 06/22/2018/06/22/20 [id number] Emergency BBuilding:ER Maxime [address] [place] [address] Repository 05/24/2018/05/24/20 [id number] Emergency BBuilding:ER Maxime [address] [place] [address] Repository 05/23/2018/05/23/20 [id number] Emergency [address] ding:ED Repository 05/23/2018/05/26/20 [id number] Ambulatory [address] Repository 05/20/2018/05/20/20 [id number] Ambulatory MAXIME Brothers [address] [place] [address] ding:[facility]AB [facility] Repository 05/16/2018 [id number] Ambulatory [facility] ding:MTLAB Repository 05/14/2018/05/15/20 [id number] MIGNON CURRY, Inpatient BBuilding:MS Maxime GAMBLE W Encounter URRoom: Health 0230Bed: A [facility] Repository 05/13/2018/05/17/20 [id number] Ambulatory [address] ding:DROP [facility] Repository 05/06/2018/05/06/20 [id number] Emergency BBuilding:ER Maxime 18 [facility] Repository 04/17/2018/04/18/20 [id number] Emergency [address] ding:ED Repository 04/10/2018 [id number] Ambulatory BMSBuilding: [place] BMS.[facility] Repository 04/09/2018/04/09/20 [id number] Emergency [address] ding:ED Repository 04/06/2018/04/06/20 [id number] Emergency [address] ding:ED Repository 03/24/2018 [id number] Ambulatory [facility] ding:HPRAD Repository 03/24/2018/03/24/20 [id number] Ambulatory BMSBuilding: [place] 18 BMS.[facility] Repository 03/12/2018/03/12/20 [id number] Emergency [address] ding:ED Repository 03/09/2018/03/11/20 [id number] Jose Oseguera Inpatient [place] 18 Encounter [facility] ding:ZT9Nxde Repository : RZ586Urz: 1 03/09/2018 [id number] Jose Oseguera Ambulatory BMSBuilding: [place] BMS.[facility] Repository 03/09/2018 [id number] Jose Oseguera Ambulatory BMSBuilding: [place] BMS.[facility] Repository 03/09/2018 [id number] Jose Oseguera Ambulatory BMSBuilding: [place] BMS.WIP [facility] Repository 03/04/2018/03/04/20 [id number] Emergency [place] 18 [facility] ding:ED Repository 02/26/2018/02/27/20 [id number] Emergency [place] 18 [facility] ding:ED Repository 02/22/2018/02/23/20 [id number] Emergency [place] 18 [facility] ding:ED Repository 02/19/2018/02/20/20 [id number] Emergency [place] 18 [facility] ding:ED Repository 02/05/2018/02/06/20 [id number] Emergency [place] ding:ED Repository 01/28/2018/01/29/20 [id number] Emergency [place] ding:ED Repository 01/22/2018/01/23/20 [id number] Emergency [place] ding:ED Repository 01/16/2018/01/18/20 [id number] Emergency [place] ding:ED Repository 01/12/2018/01/13/20 [id number] Emergency [place] ding:ED Repository 01/11/2018/01/13/20 [id number] Emergency [place] ding:ED Repository 01/09/2018/01/10/20 [id number] Emergency [place] 18 [facility] ding:ED Repository 01/07/2018/01/08/20 [id number] Emergency [place] [facility] [address] [place] [address] ding:ED Repository 12/31/2017/01/01/20 [id number] Ambulatory [address] Repository 12/31/2017/01/01/20 [id number] Ambulatory [address] Repository 12/31/2017/01/01/20 [id number] Ambulatory [address] Repository 12/31/2017 [id number] Ambulatory [facility] Repository 12/31/2017/01/02/20 [id number] Ambulatory [address] Repository 12/28/2017/12/29/19 [id number] Emergency [place] ding:ED Repository 12/20/2017 [id number] Ambulatory BBuilding:RA Pereiraman Arlette [facility] Repository 12/18/2017/12/19/19 [id number] Ambulatory [address] Repository 12/16/2017/12/17/19 [id number] Emergency [place] ding:ED Repository 12/12/2017/12/13/19 [id number] Ambulatory [address] ding:RAD [facility] Repository 12/11/2017/12/12/19 [id number] Emergency [address] ding:ED Repository 12/05/2017/12/06/19 [id number] Emergency [address] ding:ED Repository 11/24/2017/11/25/19 [id number] Emergency [address] ding:ED Repository 11/21/2017/11/26/19 [id number] Ambulatory [address] ding:DROP [facility] Repository 11/06/2017/11/11/19 [id number] Ambulatory [address] ding:DROP [facility] Repository 10/22/2017/10/23/19 [id number] Ambulatory [address] Repository 10/11/2017/10/11/19 [id number] Ambulatory [address] Repository 08/21/2017/08/25/19 [id number] Ambulatory [address] ding:DROP [facility] Repository PAYERS PAYERS ENCOUNTER GUARANTOR PAYER SUBSCRIBER SOURCE 07/20/2018 CRYSTAL nAn Primary CRYSTAL [id number] Insurance:DARIAN NOEL: Community [place] [employer] PPOPolic [id number] Number: Repository [address]Etx: 234 [id number] [phone] (HP) Date:1620-73-81PY [facility] [id number] [place] [address]HX: 07/20/2018 Secondary NOT GIVENUNK [place] Insurance:SELF PAY [facility] Number: Effective Repository Date:2018-07-20 07/19/2018 CRYSTAL L Primary CRYSTAL L [place] [id number] Insurance:ANTHEM WINESDOB: Community [place] [employer] PPOPolicy [id number] Number: Repository [address]Clp: (234) [id number] [phone] () Date:6455-24-97PT[address] [address]FV: 07/19/2018 Secondary NOT GIVENUNK [place] Insurance:SELF PAY [facility] Number: Effective Repository Date:2018-07-19 07/19/2018 CRYSTAL L Primary CRYSTAL L [place] [id number] Insurance:ANTHEM WINESDOB: Community [place] [employer] PPOPolicy [id number], [place] Number: Repository [address]Rnu: (234) [id number] [phone] () Date:8867-13-01XT[address] [address]CV: 07/19/2018 Secondary NOT GIVENUNK [place] Insurance:SELF PAY [facility] Number: Effective Repository Date:2018-07-19 07/09/2018 CRYSTAL L Primary CRYSTAL L [facility] WINESDOB: Insurance:ANTHEM WINESDOB: [facility] [id number] [place] [address] Number: [place], [place] [id number] [place], [place] [address]Ajr: (234) Date:2018-07-09 698[address]Pep: [id number] [phone] ()Tel: ([phone]) Name:O Box () () [address], [place] 000-0000 () [address]JZ: 07/04/2018 CRYSTAL L Primary CRYSTAL L [place] [id number] Insurance:ANTHEM WINESDOB: Community [place] [employer] PPOPolicy [id number] [place] Number: Repository [address]Dbe: (234) [id number] [phone] () Date:9729-94-79UA [address] [address]TC: 07/04/2018 Secondary NOT GIVENUNK [place] Insurance:SELF PAY [facility] Number: Effective Repository Date:2018-07-04 07/04/2018 CRYSTAL L Primary CRYSTAL L [place] [id number] Insurance:ANTHEM WINESDOB: Community [place] [employer] PPOPolicy [id number] Medical Institute [place] Number: Repository [address]Nzv: (234) [id number] [phone] (HP) Date:8841-15-88AP [address]XVWCRTUNOAH CARRANZA [address]CI: 07/04/2018 Secondary NOT GIVENUNK [place] Insurance:SELF PAY [facility] Number: Effective Repository Date:2018-06-26 06/26/2018 CRYSTAL L Primary CRYSTAL L [place] [id number] Insurance:ANTHEM WINESDOB: Community [place] [employer] PPOPolicy [id number], [place] Number: Repository [address]Ydl: (234) [id number] [phone] () Date:9633-03-98TK [address] [address]AO: 06/26/2018 Secondary NOT GIVENUNK [place] Insurance:SELF PAY [facility] Number: Effective Repository Date:2018-06-25 06/25/2018 CRYSTAL L Primary CRYSTAL L [place] [id number] Insurance:ANTHEM WINESDOB: Community [place] [employer] PPOPolicy [id number], [place] Number: Repository [address]Ixk: (234) [id number] [phone] (HP) Date:5604-79-43HT [address] [address]IT: 06/25/2018 Secondary NOT GIVENUNK [place] Insurance:SELF PAY [facility] Number: Effective Repository Date:2018-06-25 06/22/2018 [facility]AL L [facility]:DARIAN PETERSONSDOB: [facility] [id number] Repository CRISTINA Number: CRISTINA [place] [id number] [facility], [place] [address]Fsf: (234) Date:2018-06-22 136[address]Tip: [id number] [phone] (HP)Tel: (999) Name:NPO Box (HP) (WP) [id number], [place] 000[address] (WP) [address]FN: 05/24/2018 CRYSTAL L Primary CRYSTAL L [facility] WINESDOB: Insurance:DARIAN PETERSONSDOB: [facility] [id number] Repository [place] Number: CRISTINA [place]EN[place]ANDA [place] [id number] [place], [place] [address]Ifg: (234) Date:2018-05-24 [address]Zrd: [id number] [phone] (HP)Tel: (999) Name:NPO Box (HP) (WP) [id number], [place] 000[address]0000 (WP) [address]DF: 05/23/2018 CRYSTAL L Primary CRYSTAL L [place] [id number] Insurance:DARIAN WINESDOB: Community [place] [employer] PPOPolicy [id number], [place] Number: Repository [address]Blb: (234) [id number] [phone] (HP) Date:1140-20-55YT [address]YCWUMIP, [place] [address]QY: 05/23/2018 Secondary NOT GIVENUNK [place] Insurance:SELF PAY [facility] Number: Effective Repository Date:2018-05-23 05/20/2018 CRYSTAL L Primary CRYSTAL L [facility] WINESDOB: Insurance:NAYELIEM WINESDOB: [facility] [id number] Repository [place] Number: [place]ST[place] [id number] [facility] [place] [address]Uib: (234) Date:2018-05-20 00324Rnl: [id number] [phone] (HP)Tel: (999) Name:NPO Box (HP) (WP) [phone], [place] 000-0000 (WP) [address]HA: 05/16/2018 CRYSTAL L Primary [place] [id number] Insurance:DARIAN PETERSONSDOB: Community [employer] [employer] PPOPolicy [id number] [place], [place] Number: Repository [address]Ifm: (234) [id number] [phone] (HP) Date:1784-29-56HP [address] [place] [address] [place] [address]PW: 05/16/2018 Secondary NOT GIVENUNK [place] Insurance:SELF PAY [facility] Number: Effective Repository Date:2018-05-16 05/14/2018 CRYSTAL L Primary CRYSTAL L [facility] WINESDOB: Insurance:NAYELIEM WINESDOB: [facility] [id number] Repository [place] Number: [place]INA [place], [place] [id number] [place], [place] [address]Twt: (234) Date:2018-05-14 425[address]Tyb: [id number] [phone] (HP)Tel: (999) Name:NPO Box (HP) (WP) [phone], [place] 000-0000 (WP) [address]AR: 05/14/2018 Secondary CRYSTAL L [facility] Insurance:MEDICARE WINESDOB: [facility] Number: [id number] Repository [id number] [place] Date:2018-05-14 - [place] [id number] [address]Kih: (234) Name:MMail Code [phone] [address] (HP)Tel: (000) [address]avaSAINT [place], [place] 000[address] (WP) [address]OV: 05/13/2018 CRYSTAL L Primary CRYSTAL L [facility] WINESDOB: Insurance:[facility] WINESDOB: [facility] [id number] Repository [place] Number: [place] [id number] [facility], [place] [address]Fec: (234) Date:2018-05-13 [address]Lxp: [id number] [phone] (HP)Tel: (999) Name:NPO Box (HP) (WP) [phone], [place] 000-0000 (WP) [address]JB: 05/06/2018 CRYSTAL L Primary CRYSTAL [facility] [facility] WINESDOB: Insurance:[facility] WINESDOB: [facility] [id number] Repository [place] Number: [place]RISTINA [place]ERO [place] [id number] [facility], [place] [address]Sxd: (234) Date:2018-05-06 16163Ser: [id number] [phone] (HP)Tel: (999) Name:NPO Box (HP) (WP) [id number], [place] 000-0000 (WP) [address]EU: 04/17/2018 CRYSTAL L Primary CRYSTAL L [place] [id number] Insurance:ANTHEM WINESDOB: Community [place] [employer] PPOPolicy [id number] [place] Number: Repository [address]Glo: (234) [id number] [phone] () Date:0211-64-13EY [address]GBBHZJF, [place] [address]TJ: 04/17/2018 Secondary NOT GIVENUNK [place] Insurance:SELF PAY [facility] Number: Effective Repository Date:2018-04-17 04/10/2018 Crystal L Primary Crystal L [place] [id number] Insurance:ANTHEM WinesDOB: Community [place] [employer] PPOPolicy [id number] Medical Institute [place] Number: Repository [address]Chr: (234) [id number] [phone] () Date:6117-43-75HS [address]IODWSBC, [place] [address]PW: 04/10/2018 Secondary NOT GIVENUNK [place] Insurance:SELF PAY [facility] Number: Effective Repository Date:2018-03-11 04/09/2018 CRYSTAL L Primary CRYSTAL L [place] [id number] Insurance:ANTHEM WINESDOB: Community [place] [employer] PPOPolicy [id number] [facility] [place] Number: Repository [address]Jny: (234) [id number] [phone] () Date:5135-54-21HR [address]KBHUAUM [place] [address]UX: 04/09/2018 Secondary NOT GIVENUNK [place] Insurance:SELF PAY [facility] Number: Effective Repository Date:2018-04-09 04/06/2018 CRYSTAL L Primary CRYSTAL L [place] [id number] Insurance:ANTHEM WINESDOB: Community [place] [employer] PPOPolicy [id number] Medical Institute [place] Number: Repository [address]Wxm: (234) [id number] [phone] () Date:0569-59-10BS [address]TDNZEGM, [place] [address]VM: 04/06/2018 Secondary NOT GIVENUNK [place] Insurance:SELF PAY [facility] Number: Effective Repository Date:2018-04-06 03/24/2018 CRYSTAL L Primary CRYSTAL L [place] [id number] Insurance:ANTHEMPolic WINESDOB: Community CRISTINA [place] Number: [id number] [id number] Repository [address]Jcj: (234) Date:8332-91-20VK [phone] () 601028OBVAOJA, [place] [address]VO: 03/24/2018 Secondary NOT GIVENUNK [place] Insurance:SELF PAY [facility] Number: Effective Repository Date:2018-03-24 03/24/2018 CRYSTAL L Primary CRYSTAL L [place] [id number] Insurance:ANTHEMPolic WINESDOB: [facility] y Number: [id number], [place] [id number] Repository [address]: (234) Date:9150-62-00MB [phone] () 395157FVHTLDI, [place] [address]MV: 03/24/2018 Secondary NOT GIVENUNK [place] Insurance:SELF PAY [facility] Number: Effective Repository Date:2018-03-24 03/12/2018 Crystal L Primary Crystal L [place] [id number] Insurance:ANTHEM WinesDOB: Community [place] [employer] PPOPolicy [id number] Number: Repository [address]Zzx: (234) [id number] [phone] () Date:7546-30-77QZ [address]MFJAIDT, [place] [address]KD: 03/12/2018 Secondary NOT GIVENUNK [place] Insurance:SELF PAY [facility] Number: Effective Repository Date:2018-03-12 03/09/2018 Crystal L Primary Crystal L [place] [id number] Insurance:ANTHEM WinesDOB: Community [place] [employer] PPOPolicy [id number] Number: Repository [address]Fdn: (234) [id number] [phone] () Date:1232-04-43CU [address]NDNJVLD, [place] [address]TX: 03/09/2018 Secondary NOT GIVENUNK [place] Insurance:SELF PAY [facility] Number: Effective Repository Date:2018-03-09 03/09/2018 Crystal L Primary Crystal L [place] [id number] Insurance:ANTHEM WinesDOB: Community [place] [employer] PPOPolicy [id number], [place] Number: Repository [address]Rcx: 234 [id number] [phone] () Date:1555-38-08QJ [address]AJTTYXM [place] [address]KU: 03/09/2018 Secondary NOT GIVENUNK [place] Insurance:SELF PAY [facility] Number: Effective Repository Date:2018-03-09 03/09/2018 Crystal L Primary Crystal L [place] [id number] Insurance:ANTHEM WinesDOB: Community [place] [employer] PPOPolicy [id number][place] Number: Repository [address]Acb: 234 [id number] [phone] () Date:9709-39-97TG [address]HWVSWGL [place] [address]HM: 03/09/2018 Secondary NOT GIVENUNK [place] Insurance:SELF PAY [facility] Number: Effective Repository Date:2018-03-09 03/09/2018 Crystal L Primary Crystal L Marcus [id number] Insurance:ANTHEM WinesDOB: Community [place] [employer] PPOPolicy [id number], [place] Number: Repository [address]Ebg: 234 [id number] [phone] () Date:6546-80-14LC [address]39UMZMQCE, [place] [address]OV: 03/09/2018 Secondary NOT GIVENUNK [place] Insurance:SELF PAY [facility] Number: Effective Repository Date:2018-03-09 03/04/2018 Crystal L Primary Crystal L [place] [id number] Insurance:ANTHEM WinesDOB: Community [place] [employer] PPOPolicy [id number] Medical Institute [place] Number: Repository [address]Vpj: (234) [id number] [phone] (HP) Date:1749-65-20DI [address]XRLCKDE, [place] [address]XT: 03/04/2018 Secondary NOT GIVENUNK [place] Insurance:SELF PAY [facility] Number: Effective Repository Date:2018-03-04 02/26/2018 Crystal L Primary Crystal L [place] [id number] Insurance:ANTHEM WinesDOB: Community [place] [employer] PPOPolicy [id number] Medical Institute [place] Number: Repository [address]Xlw: (234) [id number] [phone] () Date:0537-54-74WN [address]JTVQYTK, [place] [address]ST: 02/26/2018 Secondary NOT GIVENUNK [place] Insurance:SELF PAY [facility] Number: Effective Repository Date:2018-02-26 02/22/2018 Crystal L Primary Crystal L [place] [id number] Insurance:ANTHEM WinesDOB: Community [place] [employer] PPOPolicy [id number] [facility] [place] Number: Repository [address]Cwy: (234) [id number] [phone] () Date:8832-85-06VQ [address] [place] [address] [place] [address]FC: 02/22/2018 Secondary NOT GIVENUNK [place] Insurance:SELF PAY [facility] Number: Effective Repository Date:2018-02-22 02/19/2018 Crystal L Primary Crystal L [place] [id number] Insurance:ANTHEM WinesDOB: Community [place] [employer] PPOPolicy [id number] Medical Institute [place] Number: Repository [address]Oug: (234) [id number] [phone] () Date:1939-89-94XB [address]YJVWMDU, [place] [address]CW: 02/19/2018 Secondary NOT GIVENUNK [place] Insurance:SELF PAY [facility] Number: Effective Repository Date:2018-02-19 02/05/2018 Crystal L Primary Crystal L [place] [id number] Insurance:ANTHEM WinesDOB: Community [place] [employer] PPOPolicy [id number], [place] Number: Repository [address]Ypg: (234 [id number] [phone] (HP) Date:2205-30-76SF[address] [address]WB: 02/05/2018 Secondary NOT GIVENUNK [place] Insurance:SELF PAY [facility] Number: Effective Repository Date:2018-02-05 01/28/2018 Crystal L Primary Crystal L [place] [id number] Insurance:ANTHEM WinesDOB: Community [place] [employer] PPOPolicy [id number], [place] Number: Repository [address]Oat: (234 [id number] [phone] () Date:5389-87-23LX [address] [place] [address]SN: 01/28/2018 Secondary NOT GIVENUNK [place] Insurance:SELF PAY [facility] Number: Effective Repository Date:2018-01-28 01/22/2018 Crystal L Primary Crystal L [place] [id number] Insurance:ANTHEM WinesDOB: Community [place] [employer] PPOPolicy [id number], [place] Number: Repository [address]Cqu: (234) [id number] [phone] (HP) Date:5084-80-27MU [address] [place] [address]PC: 01/22/2018 Secondary NOT GIVENUNK [place] Insurance:SELF PAY [facility] Number: Effective Repository Date:2018-01-22 01/16/2018 Crystal L Primary Crystal L [place] [id number] Insurance:ANTHEM WinesDOB: Community [place] [employer] PPOPolicy [id number], [place] Number: Repository [address]Xnl: (234) [id number] [phone] (HP) Date:1851-59-02FJ [address]HHHLTAJNOAH CARRANZA [address]AK: 01/16/2018 Secondary NOT GIVENUNK [place] Insurance:SELF PAY [facility] Number: Effective Repository Date:2018-01-16 01/12/2018 Crystal L Primary Crystal L [place] [id number] Insurance:ANTHEM WinesDOB: Community [place] [employer] PPOPolicy [id number] Number: Repository [address]Qyj: (234 [id number] [phone] () Date:6094-19-76TN [address]EEWFSHX, [place] [address]QV: 01/12/2018 Secondary NOT GIVENUNK [place] Insurance:SELF PAY [facility] Number: Effective Repository Date:2018-01-12 01/11/2018 Crystal L Primary Crystal L [place] [id number] Insurance:ANTHEM WinesDOB: Community [place] [employer] PPOPolicy [id number] [place] [address] Number: Repository [phone]: (234 [id number] [phone] () Date:3351-85-74TK [address]JVAXTOI, [place] [address]RK: 01/11/2018 Secondary NOT GIVENUNK [place] Insurance:SELF PAY [facility] Number: Effective Repository Date:2018-01-11 01/09/2018 Crystal L Primary Crystal L [place] [id number] Insurance:ANTHEM WinesDOB: Community [place] [employer] PPOPolicy [id number] Number: Repository [address]Sew: (234 [id number] [phone] () Date:9482-11-41EI [address] [address]ZX: 01/09/2018 Secondary NOT GIVENUNK [place] Insurance:SELF PAY [facility] Number: Effective Repository Date:2018-01-09 01/07/2018 Crystal L Primary Crystal L [place] [id number] Insurance:ANTHEM WinesDOB: Community [place] [employer] PPOPolicy [id number], [place] Number: Repository [address]Lew: (234) [id number] [phone] () Date:6387-52-62TQ [address] [place] [address]HW: 01/07/2018 Secondary NOT GIVENUNK [place] Insurance:SELF PAY [facility] Number: Effective Repository Date:2018-01-07 12/28/2017 Crystal L Primary Crystal L [place] [id number] Insurance:ANTHEM WinesDOB: Community [place] [employer] PPOPolicy [id number], [place] Number: Repository [address]Qvg: (234) [id number] [phone] () Date:0711-01-04TA [address] [place] [address] 10[address]YL: 12/28/2017 Secondary NOT GIVENUNK [place] Insurance:SELF PAY [facility] Number: Effective Repository Date:2017-12-28 12/20/2017 CRYSTAL L Primary CRYSTAL L [facility] WINESDOB: Insurance:ANTHEM WINESDOB: [facility] [id number] Number: [place], [place] [id number] [place], [place] [address]Uhc: (234) Date:2017-12-19 33243Icg: 1514-97-97Hrmg [phone] ()Tel: (999) Name:O Box () () [id number] [place] 000-0000 () [address]WF: 12/16/2017 Crystal L Primary Crystal L [place] [id number] Insurance:ANTHEM WinesDOB: Community [place] [employer] PPOPolicy [id number], [place] Number: Repository [address]Tmc: (234) [id number] [phone] () Date:2742-93-23GK [address] [place] [address] 750[address]SH: 12/16/2017 Secondary NOT GIVENUNK [place] Insurance:SELF PAY [facility] Number: Effective Repository Date:2017-12-16 12/12/2017 CRYSTAL L Primary CRYSTAL L [facility] WINESDOB: Insurance:ANTHEM WINESDOB: [facility] [id number] [place] [address] Number: [place], [place] [id number] [place], [place] [address]Blv: (234) Date:2017-12-02 37830Jkq: 3769-27-70Hicb [phone] ()Tel: (999) Name:[address] Box () () [address] [place] [address] [place] 000-0000 () [address]OE: 12/11/2017 Crystal L Primary Crystal L [place] [id number] Insurance:ANTHEM WinesDOB: Community [place] [employer] PPOPolicy [id number], [place] Number: Repository [address]Uzi: 234) [id number] [phone] () Date:2037-59-19YW [address] [place] [address]ZG: 12/11/2017 Secondary NOT GIVENUNK [place] Insurance:SELF PAY [facility] Number: Effective Repository Date:2017-12-11 12/05/2017 Crystal L Primary Crystal L [place] [id number] Insurance:ANTHEM WinesDOB: Community [place] [employer] PPOPolicy [id number], [place] Number: Repository [address]Gby: 234 [id number] [phone] () Date:9712-21-83HL [address] [place] [address] [place] [address]PR: 12/05/2017 Secondary NOT GIVENUNK [place] Insurance:SELF PAY [facility] Number: Effective Repository Date:2017-12-05 11/24/2017 Crystal L Primary Crystal L [place] [id number] Insurance:ANTHEM WinesDOB: Community [place] [employer] PPOPolicy [id number] [place] Number: Repository [address]Ojv: (234) [id number] [phone] (HP) Date:8341-62-50OI [address]CJBGGQW, [place] [address]YO: 11/24/2017 Secondary NOT GIVENUNK [place] Insurance:SELF PAY [facility] Number: Effective Repository Date:2017-11-24 11/21/2017 CRYSTAL L Primary CRYSTAL L [facility] WINESDOB: Insurance:ANTHEM WINESDOB: [facility] [id number] Repository [place] Number: CRISTINA [facility] [id number] [place], [place] [address]Xht: (234) Date:2017-11-21 38862Eag: 1647-85-85Jhxe [phone] (HP)Tel: (999) Name:NPO Box (HP) (WP) [phone], [place] 000-0000 (WP) [address]JY: 11/06/2017 CRYSTAL L Primary CRYSTAL L [facility] WINESDOB: Insurance:ANTHEM WINESDOB: [facility] [id number] Repository [place] Number: [place]INA [place]OCOLUM[place], [place] [id number] [place], [place] [address]Vlm: (234) Date:2017-11-06 963[address]Xgt: 2493-13-85Irek [phone] (HP)Tel: (999) Name:NPO Box (HP) (WP) 210054Lbepcff, [place] 000-0000 (WP) [address]CD: 08/21/2017 CRYSTAL L Primary CRYSTAL L [facility] WINESDOB: Insurance:ANTHEM SR WINESDOB: [facility] [id number] [facility] [id number] Repository [place]STINA MEDICAREPolicy ANGÉLICA BLAND Number: ALYCIAZBIGNIEWMIRANDA ANGÉLICA [address]Mlp: (418) [id number] 228[address]Siu: Date:2017-08-21 [phone] ()Tel: ([phone]) [phone] () () Name:PARKER Arechiga 000-0000 (WP) 913478Nfaytoc, [place] [address]FP:
== END 2018-07-19 03:33 | disposition left against medical advice (07) ==
PROVIDERS: Emergency Provider Emergency Medicine; Family Provider Family Medicine; PCP Family Medicine
DX: R07.89 Other chest pain (principal); R06.00 Dyspnea, unspecified; R53.81 Other malaise; R11.0 Nausea; E66.9 Obesity, unspecified; I11.0 Hypertensive heart disease with heart failure; I50.9 Heart failure, unspecified; I25.2 Old myocardial infarction; G89.4 Chronic pain syndrome; F32.9 Major depressive disorder, single episode, unspecified; E11.43 Type 2 diabetes mellitus with diabetic autonomic (poly)neuropathy; K31.84 Gastroparesis; K21.9 Gastro-esophageal reflux disease without esophagitis; E78.5 Hyperlipidemia, unspecified; I48.0 Paroxysmal atrial fibrillation; Z53.21 Procedure and treatment not carried out due to patient leaving prior to being seen by health care provider; Z90.49 Acquired absence of other specified parts of digestive tract; Z79.82 Long term (current) use of aspirin; Z79.4 Long term (current) use of insulin; Z79.899 Other long term (current) drug therapy
CPT/HCPCS: 71046; 80048; 83880; 84484; 85025; 93005; 94640; 99284; A4216

== ENCOUNTER 2018-07-19 15:30 | Emergency (ER) | payer MEDICARE, SELFPAY ==
[2018-07-19 00:09] VITALS: BMI 44.8
[2018-07-19 15:32] VITALS: BP 166/72; PULSE 84; RESP 18; TEMP 36.3; O2SAT 95; BMI 46.0
[2018-07-19 15:53] VITALS: O2SAT 96
--- NOTE | 2018-07-19 15:53 | EKG12_ITS ---
Test Reason : DYSRHYTHMIA Blood Pressure : / mmHG Vent. Rate : 075 BPM Atrial Rate : 075 BPM P-R Int : 124 ms QRS Dur : 086 ms QT Int : 414 ms P-R-T Axes : 013 -25 023 degrees QTc Int : 462 ms Normal sinus rhythm Leftward axis Poor R wave progression Nonspecific T wave abnormality Abnormal ECG Confirmed by JOSE MANUEL CURRY, SHAHIDA ([id number]), visual effects editor MAIKEL MULLEN ([id number]) on 07/22/2018 2:26:01 PM Referred By: SIMI Confirmed By:SHAHIDA RICHARD MD
--- NOTE | 2018-07-19 15:53 | RAD_ITS ---
STUDY: X-RAY CHEST REASON FOR EXAM: Female, 62 years old. Chest pain. TECHNIQUE: Frontal and lateral views of the chest. COMPARISON: July 19, 2018 FINDINGS: The lungs are clear and expanded. There is no demonstrated pleural abnormality. There is borderline cardiomegaly. Normal mediastinum and judith. Normal visualized pulmonary arteries. Normal visualized aortic arch and descending thoracic aorta. Normal visualized thoracic spine. Normal visualized ribs, clavicles, and shoulders. There is no demonstrated abnormality of the visualized soft tissue structures of the upper abdomen. RAD/Chest PA and Lateral IMPRESSION: No acute abnormality. Electronically Signed: Sterling Fields MD at 17:29 EST , Service support ,
--- NOTE | 2018-07-19 15:56 | ED.VISSUMM ---
- ER Visit Summary Date of Service: 07/19/18 Chief Complaint: Shortness of breath History of Present Illness: The patient is a 62 F history of insulin-dependent diabetes, hypertension, CAD, [place], CHF. Patient presented the emergency department around midnight 1 AM this morning. Had shortness of breath. And was offered admission but deferred. She states that. She still feels short of breath. Has nausea and vomiting x2 today. No fever or chills. Mild nonproductive cough. No chest pain. Her workup last night was relatively unremarkable. She denies any leg pain or swelling. She was admitted to [facility] for congestive heart failure. She denies any recent water retention or weight gain. Physical Examination: Older female no acute distress. Vital signs are stable afebrile. Her pulse ox is 95% on room air no hypoxia. She is sitting in bed resting comfortably. She does not have oxygen on. H EENT exam unremarkable. Neck nontender. Lungs clear to auscultation bilaterally. Heart regular rate and rhythm no murmur. Abdomen is soft and nontender. Normal bowel sounds no peritoneal signs. She is moving all 4 extremities. 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 Dorsi plantar flexion intact. Calves are nontender without edema or cords. Neurologically she is awake alert with no focal motor deficits. Back exam is nontender. Test Results: Chest x-ray two-view shows no acute abnormality. No pneumonia. No failure. No effusion. Chronic changes. Read by myself. White count is 13 it was 15 last night. Hemoglobin 11.7 that is her baseline chronic anemia. Electrolytes unremarkable gap of 10. Creatinine 1.1 which is also her baseline. Troponin normal. EKG sinus rhythm rate of 75 with no acute abnormality. Emergency Department Course and Treatment: I reviewed the patient's workup from last night which did not have any significant abnormalities. We will repeat a similar workup today. On her exam she does not look sick. Her lungs are clear. Her exam otherwise is unremarkable. If her lab values are consistent with her exam more than likely she will be able to be discharged home. Treatment Plan: On repeat exam at 1655 patient is doing well. Exam is unchanged and basically normal. I went over all tests with her and a friend in the room. She meets no criteria for admission clinically she does not need to be admitted will be discharged Disposition: Discharge Impression: Subjective dyspnea of uncertain etiology History of CHF, CAD, AR, insulin-dependent diabetes This note was generated with [employer] dictation software. It may contain incorrect words, spelling, and punctuation that were not noted in review of the chart prior to signing ED Disposition - Plan for ED Patient: Chief Complaint: General Illness Referrals: Devan Parks MD [Primary Care Provider] -
--- NOTE | 2018-07-19 15:59 | ED.DCSUM_ITS ---
- ER Visit Summary Date of Service: 07/19/18 Chief Complaint: Shortness of breath History of Present Illness: The patient is a 62 F history of insulin-dependent diabetes, hypertension, CAD, [place], CHF. Patient presented the emergency department around midnight 1 AM this morning. Had shortness of breath. And was offered admission but deferred. She states that. She still feels short of breath. Has nausea and vomiting x2 today. No fever or chills. Mild nonproductive cough. No chest pain. Her workup last night was relatively unremarkable. She denies any leg pain or swelling. She was admitted to [facility] for congestive heart failure. She denies any recent water retention or weight gain. Physical Examination: Older female no acute distress. Vital signs are stable afebrile. Her pulse ox is 95% on room air no hypoxia. She is sitting in bed re sting comfortably. She does not have oxygen on. H EENT exam unremarkable. Neck nontender. Lungs clear to auscultation bilaterally. Heart regular rate and rhythm no murmur. Abdomen is soft and nontender. Normal bowel sounds no peritoneal signs. She is moving all 4 extremities. 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 Dorsi plantar flexion intact. Calves are nontender without edema or cords. Neurologically she is awake alert with no focal motor deficits. Back exam is nontender. Test Results: Chest x-ray two-view shows no acute abnormality. No pneumonia. No failure. No effusion. Chronic changes. Read by myself. White count is 13 it was 15 last night. Hemoglobin 11.7 that is her baseline chronic anemia. Electrolytes unremarkable gap of 10. Creatinine 1.1 which is also her baseline. Troponin normal. EKG sinus rhythm rate of 75 with no acute abnormality. Emergency Department Course and Treatment: I reviewed the patient's workup from last night which did not have any significant abnormalities. We will repeat a similar workup today. On her exam she does not look sick. Her lungs are clear. Her exam otherwise is unremarkable. If her lab values are consistent with her exam more than likely she will be able to be discharged home. Treatment Plan: On repeat exam at 1655 patient is doing well. Exam is unchanged and basically normal. I went over all tests with her and a friend in the room. She meets no criteria for admission clinically she does not need to be admitted will be discharged Disposition: Discharge Impression: Subjective dyspnea of uncertain etiology History of CHF, CAD, [place], insulin-dependent diabetes This note was generated with [employer] dictation software. It may contain incorrect words, spelling, and punctuation that were not noted in review of the chart prior to signing ED Disposition - Plan for ED Patient: Chief Complaint: General Illness Referrals: Devan Parks MD [Primary Care Provider] -
[2018-07-19 16:23] LABS: Absolute Lymphocyte Count 2.04 X10^3/ul (0.83-4.51); Absolute Neutrophil Count 10.1 X10^3/uL (2.0-7.7); Basophil# 0.07 X10^3/uL; Basophil% 0.5 % (0-1); Eosinophils% 2.9 % (0-5); Hematocrit 36.7 % (37-47); Hemoglobin 11.7 g/dl (12.0-15.0); Lymphocyte # 2.04 X10^3/ul (4.0); Lymphocyte % 14.9 % (19-41); Mean Corp Hgb Conc 31.9 g/gl (32-36); Mean Corpuscular Hgb 25.4 pg (27.0-32.0); Mean Corpuscular Volume 79.8 fL (81-99); Mean Platelet Vol. 8.8 fl (6.2-12.0); Monocyte# 1.09 X10^3/uL; Neutrophil # 10.07 X10^3/uL (2.7-7.7); Neutrophil % 73.5 % (47-70); Platelet Count 328 K/mm3 (150-450); RBC Distribution Width CV 17.4 % (11.6-14.6); RBC Distribution Width SD 50.4 fl (35.1-43.9); White Blood Count 13.7 K/mm3 (4.4-11.0)
[2018-07-19 16:27] LABS: POSITIVE COUNT NO; POSITIVE DIFFERENTIAL NO; POSITIVE MORPHOLOGY NO
[2018-07-19 16:38] LABS: Anion Gap 10 (5-15); BUN 16 mg/dL (7-18); BUN/Creat Ratio 13.4 RATIO (10-20); Calcium,Total 9.9 mg/dL (8.5-10.1); Chloride 102 mmol/L (98-107); Creatinine, Serum 1.19 mg/dL (0.55-1.02); EST Glomerular Filtration Rate 49 mL/min (>60); Est Glom Filt Rate - Afr Amer 59 mL/min (>60); Glucose 132 mg/dL (74-106); Potassium 3.8 mmol/L (3.5-5.1); Sodium Level 140 mmol/L (136-145)
--- NOTE | 2018-07-19 17:00 | ED.DEP ---
ED Disposition - Plan for ED Patient: Disposition: Home or Assisted Living Chief Complaint: General Illness Instructions: ED Dyspnea Shortness of Breath Referrals: Devan Parks MD [Primary Care Provider] - 3-5 Days if not improving
[2018-07-19 17:06] VITALS: BP 152/73; PULSE 70; RESP 16
--- OUTSIDE RECORDS SUMMARY | 2018-09-12 21:24 | XMS RPT_ITS ---
:1955 Author Organization OHIP Support Name Relationship Address Phone D Unavailable Unavailable Unavailable GARDUNO, KERA Unavailable [address] + [place] [address] D Unavailable Unavailable Unavailable GARDUNO, KERA Unavailable [address] + [place] [address] D Unavailable Unavailable Unavailable AGRDUNO, KERA Unavailable [address] + [place] [address] GARDUNO, KERA Unavailable Unavailable + CHEIKH CRAMER Unavailable [address] + [place] [address] D Unavailable Unavailable Unavailable GARDUNO, KERA Unavailable [address] + [place] [address] D Unavailable Unavailable Unavailable GARDUNO, KERA Unavailable [address] + [place] [address] D Unavailable Unavailable Unavailable GARDUNO, KERA Unavailable [address] + [place] [address] D Unavailable Unavailable Unavailable GARDUNO, KERA Unavailable [address] + [place] [address] MERIDEN, KERA Unavailable Unavailable + CHEIKH CRAMER Unavailable [address] + [place] [address] MERIDEN, KERA Unavailable Unavailable + CHEIKH CRAMER Unavailable [address] + [place] [address] D Unavailable Unavailable Unavailable GARDUNO, KERA Unavailable [address] + [place] [address] GARDUNO, KERA Unavailable Unavailable + CHEIKH CRAMER Unavailable [address] + [place] [address] D Unavailable Unavailable Unavailable MERIDEN, KERA Unavailable Unavailable + GARDUNO, KERA Unavailable Unavailable + BELA, CHEIKH Unavailable [address] + [place] [address] MERIDEN, KERA Unavailable Unavailable + BELA, CHEIKH Unavailable [address] + [place] [address] MERIDEN, KERA Unavailable Unavailable + BELA, CHEIKH Unavailable [address] + [place] [address] D Unavailable Unavailable Unavailable MERIDEN, KERA Unavailable Unavailable + D Unavailable Unavailable Unavailable MERIDEN, KERA Unavailable [address] + [place] [address] D Unavailable Unavailable Unavailable MERIDEN, KERA Unavailable Unavailable + D Unavailable Unavailable Unavailable MERIDEN, KERA Unavailable Unavailable + D Unavailable Unavailable Unavailable MERIDEN, KERA Unavailable Unavailable + D Unavailable Unavailable Unavailable MERIDEN, KERA Unavailable [address] + [place] [address] D Unavailable Unavailable Unavailable MERIDEN, KERA Unavailable Unavailable + D Unavailable Unavailable Unavailable MERIDEN, KERA Unavailable Unavailable + D Unavailable Unavailable Unavailable MERIDEN, KERA Unavailable [address] + [place] [address] D Unavailable Unavailable Unavailable MERIDEN, KERA Unavailable [address] + [place] [address] D Unavailable Unavailable Unavailable MERIDEN, KERA Unavailable [address] + [place] [address] D Unavailable Unavailable Unavailable MERIDEN, KERA Unavailable Unavailable + D Unavailable Unavailable Unavailable MERIDEN, KERA Unavailable Unavailable + D Unavailable Unavailable Unavailable MERIDEN, KERA Unavailable Unavailable + D Unavailable Unavailable Unavailable MERIDEN, KERA Unavailable Unavailable + D Unavailable Unavailable Unavailable MERIDEN, KERA Unavailable Unavailable + D Unavailable Unavailable Unavailable MERIDEN, KERA Unavailable Unavailable + D Unavailable Unavailable Unavailable MERIDEN, KERA Unavailable Unavailable + D Unavailable Unavailable Unavailable MERIDEN, KERA Unavailable Unavailable + D Unavailable Unavailable Unavailable MERIDEN, KERA Unavailable Unavailable + D Unavailable Unavailable Unavailable MERIDEN, KERA Unavailable Unavailable + D Unavailable Unavailable Unavailable MERIDEN, KERA Unavailable Unavailable + D Unavailable Unavailable Unavailable MERIDEN, KERA Unavailable Unavailable + D Unavailable Unavailable Unavailable MERIDEN, KERA Unavailable Unavailable + BELA, CHEIKH Unavailable [address] + [place] [address] BELA, CHEIKH Unavailable [address] + [place] [address] D Unavailable Unavailable Unavailable MERIDEN, KERA Unavailable Unavailable + BELA, CHEIKH Unavailable [address] + [place] [address] BELA, CHEIKH Unavailable [address] + [place] [address] D Unavailable Unavailable Unavailable MERIDEN, KERA Unavailable Unavailable + D Unavailable Unavailable Unavailable MERIDEN, KERA Unavailable Unavailable + D Unavailable Unavailable Unavailable MERIDEN, KERA Unavailable Unavailable + BELA, CHEIKH Unavailable [address] + [place] [address] BELA, CHEIKH Unavailable [address] + [place] [address] BELA, CHEIKH Unavailable [address] + [place] [address] BELA, CHEIKH Unavailable [address] + [place] [address] BELA, CHEIKH Unavailable [address] + [place] [address] BELA, CHEIKH Unavailable [address] + [place] [address] Care Team Providers Name Role Phone YOU PARKS MD Attending Unavailable YOU PARKS MD. Primary Care Unavailable YOU PARKS MD Attending Unavailable YOU PARKS MD Primary Care Unavailable YOU PARKS MD Attending Unavailable YOU PARKS MD Primary Care Unavailable YOU PARKS MD Attending Unavailable YOU PARKS MD Primary Care Unavailable REFERRING REFERRING, LUÍS STALEY WO ID~[id number] Attending Unavailable YOU PARKS MD Primary Care Unavailable PENNY FLETCHER MD Attending Unavailable YOU PARKS MD Primary Care Unavailable ARGENIS CAR, MS. RENZO Serrato Attending Unavailable YOU PARKS MD Primary Care Unavailable DIPAK CROW MD Attending Unavailable YOU PARKS MD Primary Care Unavailable DIPAK CROW MD Admitting Unavailable YOU PARKS MD Consulting Unavailable CALVIN BARBER, . JENNY Recinos Consulting Unavailable ARGENISABDIRIZAK CAR, MS. RENZO Serrato Attending Unavailable YOU PARKS MD Primary Care Unavailable HANDY BAIRES, DR. WERNER العلي Attending Unavailable YOU PARKS MD Primary Care Unavailable Vera Ortiz MD Attending Unavailable YOU PARKS MD Primary Care Unavailable YOU PARKS MD Primary Care Unavailable DIPAK CROW MD Admitting Unavailable DIPAK CROW MD Attending Unavailable YOU PARKS MD Consulting Unavailable DIPAK CROW MD Consulting Unavailable STEVEN, MUKUL Luis Referring Unavailable STEVEN, MUKUL Smith Attending Unavailable STEVEN, MUKUL S Referring Unavailable STEVEN, MUKUL Smith Attending Unavailable YOU PARKS Referring Unavailable STEVEN, [...] Primary Care Unavailable Mansoor Haywood Attending Unavailable DARYL YOU Primary Care Unavailable Bebeto Lugo Attending [...] Attending Unavailable PARKS, YOU Primary Care Unavailable Muukl Rico Attending Unavailable PARKS, YOU Primary Care Unavailable Ramon Young Attending Unavailable PARKS, YOU Primary Care Unavailable Son Long Attending Unavailable PARKS, YOU Primary Care Unavailable Ana Rosa, Jose Admitting Unavailable Paintsil, Willard Attending Unavailable Ana Rosa, Jose Admitting Unavailable PARKS, YOU Primary Care Unavailable Ana Rosa, Jose Consulting Unavailable Sandra Burks Attending Unavailable Ana Rosa, Jose Admitting Unavailable Paintsil, Willard Attending Unavailable PARKS, YOU Primary Care Unavailable Paintsil, Willard Consulting Unavailable Chanel Rosario [employer] Attending Unavailable PARKS, YOU Referring Unavailable Ana Rosa, Jose Admitting Unavailable Paintsil, Willard Attending Unavailable PARKS, YOU Primary Care Unavailable Paintsil, Willard Consulting Unavailable PARKS, YOU Primary Care Unavailable [...] Unknown I51.81 - Takotsubo Son Ellison Active [facility] syndrome / Community I51.81(ICD-10) Hospital Repository 06/26/2018 Unknown 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 / Hospital I25.2(ICD-10) Repository 05/16/2018 Unknown 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 / Community M06.4(ICD-10) Hospital Repository 05/16/2018 Unknown M21.40 - Flat foot Samra Jacques Active [facility] [pes planus] Community (acquired), Hospital unspecified foot / Repository M21.40(ICD-10) 05/16/2018 Unknown M51.37 - Other Samra Jacques Active [facility] intervertebral disc Community degeneration, Hospital lumbosacral region / Repository M51.37(ICD-10) 05/16/2018 Unknown M47.897 - Other Samra Jacques Active [facility] spondylosis, Community lumbosacral region / Hospital M47.897(ICD-10) Repository 05/16/2018 Unknown M47.892 - Other Samra Jacques Active [facility] spondylosis, Community cervical region / Hospital M47.892(ICD-10) Repository 05/13/2018 Admitting Edema, unspecified / 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 R60.9(ICD-10) [facility] 03/26/2018 Unknown R06.02 - Shortness Farooq, Dwayne Active [facility] of breath / Community R06.02(ICD-10) Hospital Repository 03/26/2018 Unknown A41.9 - Sepsis, Paintsil, Willard Active [facility] unspecified organism Community / A41.9(ICD-10) Hospital Repository 03/26/2018 Unknown R11.0 - Nausea / Bratenahl, Mansoor Active [facility] R11.0(ICD-10) [facility] Repository 03/26/2018 Unknown R10.9 - Unspecified Umana, Jose Alberto Active [facility] abdominal pain / Community R10.9(ICD-10) Hospital Repository 03/26/2018 Unknown R11.10 - Vomiting, Mansoor Haywood Active [facility] unspecified / Community R11.10(ICD-10) Hospital Repository 12/31/2017 Active Other disorders of NA Active [place] nervous system / [facility] G98.8(ICD-10) [facility] Repository 03/26/2018 Unknown R06.00 - Dyspnea, Jwayyed, Active [facility] unspecified / [place] Community R06.00(ICD-10) Hospital Repository 03/26/2018 Unknown R11.2 - Nausea with Ahmed, Rami Active [facility] vomiting, Community unspecified / Hospital R11.2(ICD-10) Repository 11/21/2017 Admitting Type 2 diabetes DARYL CURRY, Active [facility] Diagnosis mellitus without YOU D. [facility] complications / Repository E11.9(ICD-10) 11/06/2017 Admitting Encounter for issue DARYL CURRY, Active [facility] Diagnosis of repeat YOU D. [facility] prescription / Repository Z76.0(ICD-10) 10/11/2017 Active Gastroparesis / NA Active [place] K31.84(ICD-10) [facility] Repository 08/21/2017 Admitting Hypothyroidism, DARYL CURRY, Active [facility] Diagnosis unspecified / [facility] D. [facility] E03.9(ICD-10) Repository 08/21/2017 Admitting Mixed hyperlipidemia DARYL CURRY, Active [facility] Diagnosis / E78.2(ICD-10) YOU D. [facility] Repository PROCEDURES PROCEDURES No Procedure Records FoundRESULTS RESULTS CNOV Observed: 07/23/2018 Status: COMPLETED Source: [place] 12:45 PM [facility] REPOSITORY Office Visit (NEADMN) CRYSTAL CRAMER ([id number]) 1955 F Date Time Provider Department 07/23/18 12:45 PM AYANA JAMISON ([facility]) NEADMN During your visit today, we recorded [...] 5/5biceps, 5/5 wrist extension, and 5/5 hand chick sexer. Finger extensor 5/5. Finger flexor 5/5. Pronation [...] of ankles. ? Coordination: Finger-to- nose-finger and gpxq-rj-usmo intact bilaterally. No ataxia of arms. No [...] with more than 50% of the total mukk-tp-iaxa time of the visit in counseling / coordination of care. ACTIVE PROBLEM LIST Tuberculosis of Lung, Nodular, Confirmation Unspecified Diarrhea Nausea AND Vomiting No orders found for this visit on 07/23/18. Ayana Jamison MSN, MARKETING/SALES PERSON, RADIAGRAPH OPERATOR-C 1. This office note has been dictated [...] MONTELUKAST 10 MG TABLET >> Ayana Jamison APRN.ORNAMENTAL METAL WORKER APPRENTICE 07/23/2018 12:17 PM >> AYANA JAMISON Wed [...] 07/23/18 PROGRESS Observed: 07/23/2018 Status: COMPLETED Source: [place] 12:20 PM [facility] REPOSITORY HNO ID: [id number] Author: Ayana Jamison Service: (none) Author Type: [...] 5/5biceps, 5/5 wrist extension, and 5/5 hand chick sexer. Finger extensor 5/5. Finger flexor 5/5. Pronation [...] of ankles. ? Coordination: Finger-to- nose-finger and egip-jn-epfc intact bilaterally. No ataxia of arms. No [...] with more than 50% of the total dkus-et-schz time of the visit in counseling / coordination of care. ACTIVE PROBLEM LIST Tuberculosis of Lung, Nodular, Confirmation Unspecified Diarrhea Nausea AND Vomiting No orders found for this visit on 07/23/18. Ayana Jamison MSN, MARKETING/SALES PERSON, RADIAGRAPH OPERATOR-C 1. This office note has been dictated [...] LEAD ELECTROCARDIOGRAM Observed: 07/22/2018 Status: F Source: [place] 2:56 PM [facility] REPOSITORY [facility] Cardiovascular Services [address] [place] [address] 12 Lead EKG 07/20/18 0240 MR#: [id number] Acct: [id number] Name: CRYSTAL CRAMER Rep #: [id number] : 1955 62 From: Son Ellison MD [...] ECG Confirmed by JOSE MANUEL CURRY, SON ([id number]), production editor MAIKEL MULLEN ([id number]) on 07/22/2018 2:56:36 PM Referred By: BB Confirmed By:SON ELLISON MD 07/22/18 1456 Date Son Ellison MD CC: SHREYAS MARY MD; You Parks MD Signed 12 LEAD ELECTROCARDIOGRAM Observed: 07/22/2018 Status: F Source: [place] 2:26 PM [facility] REPOSITORY [facility] Cardiovascular Services [address] [place] [address] 12 Lead EKG 07/19/18 1633 MR#: [id number] Acct: [id number] Name: CRYSTAL CRAMER Rep #: [id number] : 1955 62 From: Son Ellison MD [...] ECG Confirmed by JOSE MANUEL CURRY, SON ([id number]), production editor MAIKEL MULLEN ([id number]) on 07/22/2018 2:26:01 PM Referred By: SIMI Confirmed By:SON ELLISON MD 07/22/18 1426 Date Son Ellison MD CC: Ray Perez MD; You Parks MD Signed 12 LEAD ELECTROCARDIOGRAM Observed: 07/22/2018 Status: F Source: [place] 2:04 PM [facility] REPOSITORY [facility] Cardiovascular Services [address] [place] [address] 12 Lead EKG 07/19/18 0056 MR#: [id number] Acct: [id number] Name: CRYSTAL CRAMER L Rep #: [id number] : 1955 62 From: Perfecto Haskins MD [...] ECG Confirmed by PERFECTO HASKINS MD ([id number]), production editor MAIKEL MULLEN ([id number]) on 07/22/2018 2:04:21 PM Referred By: CHANDRA Confirmed By:PERFECTO HASKINS MD 07/22/18 1404 Date Perfecto Haskins MD CC: SHREYAS MARY MD; You Parks MD Signed EMERGENCY DEPARTMENT Observed: 07/20/2018 Status: F Source: [place] SUMMARY 7:16 AM [facility] REPOSITORY [facility] Medical Records Department [address] [place] [address] Emergency Department Summary 07/20/18 0224 MR#: [id number] Acct: [id number] Name: CRYSTAL CRAMER Rep #: [id number] : 1955 62 From: Shreyas Mary MD [...] overnight hospital stay a week ago at [facility], but no other immobility or recent travel. [...] was on-call for cardiology and is her cattyman. We both agree that admitting her to [...] your Primary Care Provider. Call [facility] ([phone]) or report to the closest Emergency Room. Call 911 if necessary. 07/20/18 0716 <Electronically signed by Shreyas Mary MD> Date Shreyas Mary MD Cosigner Signature (If Indicated): Date CC: You Parks MD URINALYSIS, COMPLETE Collected: 07/20/2018 Status: F Source: [place] 6:15 AM [facility] REPOSITORY Order Comment: Order Date: 07/20/18 NOTE - MICROSCOPIC EXAM DONE ON UNSPUN URINE. ONLY 1 ML SAMPLE SUBMITTED How was Urine Obtained? PREPARED FOODS SUPERVISOR TO SPECIFY TYPE CODE TESTS RESULT [...] BACTERIA RARE Performed By: #### L400.0001 #### [facility] [address] [place], [address] CHEST WITHOUT Observed: 07/20/2018 Status: F Source: [place] CONTRAST 3:46 AM [facility] REPOSITORY [facility] Imaging Services [address] [place] [address] Chest without Contrast MR#: [id number] Acct: [id number] Name: CRYSTAL CRAMER Rep #: [id number] : 1955 F 62 From: Nick Sandoval MD PCP: You Parks MD Status: REG ER Study: Chest without Contrast Date of Exam: 07/20/18 Exam# [id number] Ordering Dr: Shreyas Mary MD HISTORY: SOB,NAUSEA [...] Service support , CC: SHREYAS MARY MD; oYu Parks MD Net C Developer: Signed BASIC METABOLIC Collected: 07/20/2018 Status: F Source: [place] PROFILE (BMP) 3:00 AM [facility] REPOSITORY TYPE CODE TESTS RESULT OUT OF [...] 11 Performed By: #### L500.2500, L501.4010 #### [facility] [address] [place], [place], [id number] TROPONIN-I Collected: 07/20/2018 Status: F Source: [place] 3:00 AM [facility] REPOSITORY TYPE CODE TESTS RESULT OUT OF RANGE REFERENCE UNITS LAB L501.4010 <0.045 ng/mL Normal < 0.015 TROPONIN-I Result Comment: TROPONIN-I EXPECTED VALUES <0.045 Negative 0.045 - 0.590 Consistent with Cardiac Damage > OR = 0.600 Critical Value Not every elevated troponin is indicative of NV. These values should be used with clinical judgement in examining the patient's clinical picture for diagnosis. To establish a diagnosis of NV versus myocardial injury, there must be a demonstrated rise and/or fall in the troponin values, in addition to ischemic symptoms, EKG changes, new regional wall motion abnormality, and/or angiographical evidence. PLEASE NOTE: REFERENCE RANGES EDITED 17 Performed By: #### L500.2500, L501.4010 #### [facility] [address] [place], [place], [id number] CBC W/DIFF, AUTOMATED Collected: 07/20/2018 Status: F Source: [place] 3:00 AM [facility] REPOSITORY TYPE CODE TESTS RESULT OUT OF [...] Lymph 2.59 Performed By: #### L100.0100 #### [facility] [address] [place], [place], [address] D-DIMER QUANTITATIVE Collected: 07/20/2018 Status: F Source: [place] (DVT/PE) 3:00 AM [facility] REPOSITORY TYPE CODE TESTS RESULT OUT OF RANGE REFERENCE UNITS LAB L300.8000 0.27-0.49 FEU/ug/m Normal D-DIMER 0.46 QUANT Result Comment: NORMAL D-Dimer level (<0.50) indicates no DVT or PE. Performed By: #### L300.8000 #### [facility] [address] [place], [address] EMERGENCY DEPARTMENT Observed: 07/19/2018 Status: F Source: [place] SUMMARY 9:51 PM [facility] REPOSITORY [facility] Medical Records Department [address] [place] [address] Emergency Department Summary 07/19/18 1556 MR#: [id number] Acct: [id number] Name: CRYSTAL CRAMER Rep #: [id number] : 1955 62 From: Ray Perez MD PCP: You Parks MD Status: DEP ER - ER Visit Summary Date of Service: 07/19/18 Chief Complaint: Shortness of breath History of Present Illness: The patient is a 62 F history of insulin-dependent diabetes, hypertension, CAD, NV, CHF. Patient presented the emergency department around [...] pain or swelling. She was admitted to [facility] for congestive heart failure. She denies [...] all 4 extremities. She is equal symmetrical chick sexer strength. Dorsi plantar flexion intact. Calves are [...] of uncertain etiology History of CHF, CAD, NV, insulin-dependent diabetes This note was generated with Store[employer]netation software. It may contain incorrect words, spelling, [...] your Primary Care Provider. Call [facility] ([phone]) or report to the closest Emergency Room. Call 911 if necessary. 07/19/18 2151 <Electronically signed by Ray Perez MD> Date Ray Perez MD Cosigner Signature (If Indicated): Date CC: You Parks MD DISCHARGE INSTRUCTION Observed: 07/19/2018 Status: F Source: [place] 9:51 PM [facility] REPOSITORY [facility] Medical Records Department [address] [place] [address] Discharge Instruction 07/19/18 1700 MR#: [id number] Acct: [id number] Name: CRYSTAL CRAMER Rep #: [id number] : 1955 62 From: Ray Perez MD [...] your Primary Care Provider. Call [facility] ([phone]) or report to the closest Emergency Room. Call 911 if necessary. 07/19/182150 <Electronically signed by Ray Perez MD> Date Ray Perez MD Cosigner Signature (If Indicated): Date CC: You Parks MD CBC W/DIFF, AUTOMATED Collected: 07/19/2018 Status: F Source: [place] 4:10 PM [facility] REPOSITORY TYPE CODE TESTS RESULT OUT OF [...] Lymph 2.04 Performed By: #### L100.0100 #### [facility] [address] [place], [address] BASIC METABOLIC Collected: 07/19/2018 Status: F Source: [place] PROFILE (BMP) 4:10 PM [facility] REPOSITORY TYPE CODE TESTS RESULT OUT OF [...] 10 Performed By: #### L500.2500, L501.4010 #### [facility] [address] [place] [place], [address] TROPONIN-I Collected: 07/19/2018 Status: F Source: [place] 4:10 PM [facility] REPOSITORY TYPE CODE TESTS RESULT OUT OF RANGE REFERENCE UNITS LAB L501.4010 <0.045 ng/mL Normal < 0.015 TROPONIN-I Result Comment: TROPONIN-I EXPECTED VALUES <0.045 Negative 0.045 - 0.590 Consistent with Cardiac Damage > OR = 0.600 Critical Value Not every elevated troponin is indicative of NV. These values should be used with clinical judgement in examining the patient's clinical picture for diagnosis. To establish a diagnosis of NV versus myocardial injury, there must be a demonstrated rise and/or fall in the troponin values, in addition to ischemic symptoms, EKG changes, new regional wall motion abnormality, and/or angiographical evidence. PLEASE NOTE: REFERENCE RANGES EDITED 17 Performed By: #### L500.2500, L501.4010 #### [facility] [address] [place], [address] CHEST PA AND LATERAL Observed: 07/19/2018 Status: F Source: [place] 3:54 PM [facility] REPOSITORY [facility] Imaging Services [address] [place] [address] Chest PA and Lateral MR#: [id number] Acct: [id number] Name: CRYSTAL CRAMER Rep #: [id number] : 1955 F 62 From: Sterling Fields MD PCP: Yuo Parks MD Status: DEP ER Study: Chest PA and Lateral Date of Exam: 07/19/18 Exam# [id number] Ordering Dr: Ray Perez MD STUDY: X-RAY [...] CC: Ray Perez MD; You Parks MD Net C Developer: Signed EMERGENCY DEPARTMENT Observed: 07/19/2018 Status: F Source: [place] SUMMARY 3:12 AM [facility] REPOSITORY [facility] Medical Records Department [address] [place] [address] Emergency Department Summary 07/19/18 0114 MR#: [id number] Acct: [id number] Name: CRYSTAL CRAMER Rep #: [id number] : 1955 62 From: Shreyas Mary MD [...] She was admitted for 1 night at [facility] last week and diagnosed with congestive heart failure, placed on Lasix, she was having edema and states that since she has been treated with Lasix the edema is better, and not worsening now. She still feels that her feet are both swollen, but her legs are much better. Hx of an NV several years ago, no stents or CABG [...] your Primary Care Provider. Call [facility] ([phone]) or report to the closest Emergency Room. Call 911 if necessary. 07/19/18311 <Electronically signed by Shreyas Mary MD> Date Shreyas Mary MD Cosigner Signature (If Indicated): Date CC: You Parks MD CBC W/DIFF, AUTOMATED Collected: 07/19/2018 Status: F Source: [place] 1:05 AM [facility] REPOSITORY TYPE CODE TESTS RESULT OUT OF [...] Lymph 2.93 Performed By: #### L100.0100 #### [facility] [address] [place], [place], [id number] BASIC METABOLIC Collected: 07/19/2018 Status: F Source: [place] PROFILE ([facility]) 1:05 AM [facility] REPOSITORY TYPE CODE TESTS RESULT OUT OF [...] 10 Performed By: #### L500.2500, L501.4010 #### [facility] [address] [place], [place], [address] TROPONIN-I Collected: 07/19/2018 Status: F Source: [place] 1:05 AM [facility] REPOSITORY TYPE CODE TESTS RESULT OUT OF RANGE REFERENCE UNITS LAB L501.4010 <0.045 ng/mL Normal < 0.015 TROPONIN-I Result Comment: TROPONIN-I EXPECTED VALUES <0.045 Negative 0.045 - 0.590 Consistent with Cardiac Damage > OR = 0.600 Critical Value Not every elevated troponin is indicative of NV. These values should be used with clinical judgement in examining the patient's clinical picture for diagnosis. To establish a diagnosis of NV versus myocardial injury, there must be a demonstrated rise and/or fall in the troponin values, in addition to ischemic symptoms, EKG changes, new regional wall motion abnormality, and/or angiographical evidence. PLEASE NOTE: REFERENCE RANGES EDITED 17 Performed By: #### L500.2500, L501.4010 #### [facility] [address] [place], [address] BNP,B-TYPE NATRIURETIC Collected: 07/19/2018 Status: F Source: [facility] 1:05 AM [facility] REPOSITORY TYPE CODE TESTS RESULT OUT OF RANGE REFERENCE UNITS LAB L503.6620 0-100 pg/mL Normal B-TYPE 21.9 LANDON PEP Performed By: #### L503.6620 #### [facility] [address] [place], [address] CHEST PA AND LATERAL Observed: 07/19/2018 Status: F Source: [facility] 12:47 AM [facility] REPOSITORY [facility] Imaging Services [address] [place] [address] Chest PA and Lateral MR#: [id number] Acct: [id number] Name: CRYSTAL CRAMER Rep #: [id number] : 1955 F 62 From: Dipak Coulter MD PCP: You Parks MD Status: [facility] ER Study: Chest PA and Lateral Date of Exam: 07/19/18 Exam# [id number] Ordering Dr: Shreyas Mary MD STUDY: X-RAY [...] CC: SHREYAS MARY MD; You Parks MD Net C Developer: Signed TROP Collected: 07/10/2018 Status: F Source: [place] [employer] 4:54 AM [facility] REPOSITORY TYPE CODE TESTS RESULT OUT OF REFERENCE UNITS RANGE LAB TROP(LOINC) 0.000-0.040 ng/mL Troponin 0.033 Result Comment: Troponin I reference range: 0.00-0.040 ng/mL Negative and non-diagnostic. >0.040 ng/mL Consistent with cardiac damage, increased clinical risk and possibility of myocardial infarction. Serial measurements, a rise & fall in test results, clinical history, appropriate symptoms and/or ECG changes may help assess possibility of NV. *Other non-acute coronary syndrome conditions such as CHF, myocarditis, pulmonary emboli, sepsis and cardiac surgery could result in myocardial damage and increased troponin levels. Performed By: #### FES, TROP, MG, GFR, BMP #### [place] [address] BMP Collected: 07/10/2018 Status: F Source: [facility] 4:54 AM [facility] REPOSITORY TYPE CODE TESTS RESULT OUT OF [...] #### FES, TROP, MG, GFR, BMP #### [place] [address] MG Collected: 07/10/2018 Status: F Source: [facility] 4:54 AM [facility] REPOSITORY TYPE CODE TESTS RESULT OUT OF REFERENCE UNITS RANGE LAB MG(LOINC) 1.8-2.4 mg/dL Magnesium Lvl 1.9 Performed By: #### FES, TROP, MG, GFR, BMP #### [place] [address] FES Collected: 07/10/2018 Status: F Source: [facility] 4:54 AM [facility] REPOSITORY TYPE CODE TESTS RESULT OUT OF RANGE REFERENCE UNITS LAB FE(LOINC) 50-70 mcg/dL Low Iron 31 LAB IBC(LOINC) 250-450 mcg/dL TIBC 320 LAB FESAT(LOINC % ) Iron Sat 10 Performed By: #### FES, TROP, MG, GFR, BMP #### [place] [address] .GFR Collected: 07/10/2018 Status: F Source: [facility] 4:54 AM [facility] REPOSITORY TYPE CODE TESTS RESULT OUT OF REFERENCE UNITS RANGE LAB GFRAA(LOINC ml/min/1.73 ) sqm GFR 56 [place] Result Comment: GFR Population mean for , [...] #### FES, TROP, MG, GFR, BMP #### [address] [address] DIMER Collected: 07/09/2018 Status: F Source: [facility] 7:57 PM [facility] REPOSITORY TYPE CODE TESTS RESULT OUT OF [...] embolism (PE). Performed By: #### DIMER #### [place] [address] [place], [place] [address] XR CHEST 2 VIEWS Observed: 07/09/2018 Status: F Source: [facility] 6:46 PM [facility] REPOSITORY ORIGINAL XR CHEST 2 VIEWS CLINICAL [...] PM CBC Collected: 07/09/2018 Status: F Source: [facility] 6:15 PM [facility] REPOSITORY TYPE CODE TESTS RESULT OUT OF [...] By: #### GFR, PBNP, BMP, TROP #### [address] [address] #### ANEU, ADIFF, CBC #### [address] [address] .AUTO DIFF Collected: 07/09/2018 Status: F Source: [facility] 6:15 PM [facility] REPOSITORY TYPE CODE TESTS RESULT OUT OF [...] By: #### GFR, PBNP, BMP, TROP #### [place] [address] #### ANEU, ADIFF, CBC #### [place] [address] [place], [place] [address] .NEUABS Collected: 07/09/2018 Status: F Source: [facility] 6:15 [facility] REPOSITORY TYPE CODE TESTS RESULT OUT OF REFERENCE UNITS RANGE LAB ANEU(LOINC) 2.85-6.16 10 3/mcL High Neutrophil, 11.50 Absolute Performed By: #### GFR, PBNP, BMP, TROP #### [place] [address] #### ANEU, ADIFF, CBC #### [place] [address] [place], [place] [address] BMP Collected: 07/09/2018 Status: F Source: [facility] 6:15 PM [facility] REPOSITORY TYPE CODE TESTS RESULT OUT OF [...] By: #### GFR, PBNP, BMP, TROP #### [address] [address] #### ANEU, ADEMELI, CBC #### [place] [address] [address] .GFR Collected: 07/09/2018 Status: F Source: [facility] 6:15 PM [facility] REPOSITORY TYPE CODE TESTS RESULT OUT OF REFERENCE UNITS RANGE LAB GFRAA(LOINC ml/min/1.73 ) sqm GFR 57 [place] Result Comment: GFR Population mean for , [...] By: #### GFR, PBNP, BMP, TROP #### [address] [address] #### ANEU, ADIFF, CBC #### [address] [address] TROP Collected: 07/09/2018 Status: F Source: [facility] 6:15 PM [facility] REPOSITORY TYPE CODE TESTS RESULT OUT OF REFERENCE UNITS RANGE LAB TROP(LOINC) 0.000-0.040 ng/mL Troponin <0.020 Result Comment: Troponin I reference range: 0.00-0.040 ng/mL Negative and non-diagnostic. >0.040 ng/mL Consistent with cardiac damage, increased clinical risk and possibility of myocardial infarction. Serial measurements, a rise & fall in test results, clinical history, appropriate symptoms and/or ECG changes may help assess possibility of NV. *Other non-acute coronary syndrome conditions such as CHF, myocarditis, pulmonary emboli, sepsis and cardiac surgery could result in myocardial damage and increased troponin levels. Performed By: #### GFR, PBNP, BMP, TROP #### [place] [address] #### ANEU, ADIFF, CBC #### [address] [address] PBNP Collected: 07/09/2018 Status: F Source: [facility] 6:15 [facility] [place] REPOSITORY TYPE CODE TESTS RESULT OUT OF REFERENCE UNITS RANGE LAB PBNP(LOINC) 0-125 pg/mL High N-Terminal 558 proBNP Result Comment: NT-proBNP results of less than 300 pg/mL effectively rules out acute congestive heart failure with 99% negative predictive value. Performed By: #### GFR, PBNP, BMP, TROP #### [place] [address] #### ANEU, ADIFF, CBC #### [address] [address] ECHO, COMPLETE W/ Observed: 07/04/2018 Status: F Source: [facility] CONTRAST 4:32 PM [facility] REPOSITORY [facility] Cardiovascular Services [place] [address] Echo Complete W/ Contrast 07/04/18 1402 MR#: [id number] Acct: [id number] Name: CRYSTAL CRAMER Marissa Rep #: [id number] : 1955 62 From: Son Ellison MD Attending Dr: Son Ellison MD Status: REG CLI Ordering Dr: Son Ellison MD Date: 07/04/18 Location: [facility] Sex: F C Admitted: Reason For Study: [...] Dictated: 07/04/18 1402 Date Transcribed: 07/04/18 1631 Net C Developer: Signed BASIC METABOLIC Collected: 07/04/2018 Status: F Source: [facility] PROFILE (BMP) 3:17 PM [facility] REPOSITORY TYPE CODE TESTS RESULT OUT OF [...] GAP 10 Performed By: #### L500.2500 #### [facility] [address] [facility] [place], [address] BNP,B-TYPE NATRIURETIC Collected: 07/04/2018 Status: F Source: [facility] 3:17 PM [facility] REPOSITORY TYPE CODE TESTS RESULT OUT OF RANGE REFERENCE UNITS LAB L503.6620 0-100 pg/mL Normal B-TYPE 69.2 LANDON PEP Performed By: #### L503.6620 #### [facility] [address] [facility] [place], [address] CHEST PA AND LATERAL Observed: 07/04/2018 Status: F Source: [facility] 2:50 PM [facility] REPOSITORY [facility] Imaging Services [address] [place] [address] Chest PA and Lateral MR#: [id number] Acct: [id number] Name: CRYSTAL CRAMER Rep #: [id number] : 1955 F 62 From: Nick Sandoval MD PCP: You Parks MD Status: REG CLI Study: Chest PA and Lateral Date of Exam: 07/04/18 Exam# [id number] Ordering Dr: Son Ellison MD HISTORY: CHFCongestive Heart Failure EXAM: XR Chest 2 Views: COMPARISON: 2 view chest 05/23/2018 and CTA chest 04/18/2018 FINDINGS: Normal heart size. No vascular congestion, pleural effusion, or acute pulmonary infiltration. Atherosclerotic thoracic aorta. Mild dorsal kyphosis. RAD/Chest PA and Lateral IMPRESSION: No active cardiopulmonary disease. at 0634 Reported and signed by: Nick Sadnoval MD Electronically Signed: Nick Sandoval, at 6:32 EST Tel , Service support , CC: Son Ellison MD; You Parks MD Net C Developer: Signed CARDIOLOGY VISIT Observed: 06/26/2018 Status: F Source: [facility] REPORT 5:31 PM [facility] REPOSITORY [facility] [place] [address] [place] [address] OFFICE VISIT Date of Service: 06/26/18 MR#: [id number] Acct: [id number] Name: CRYSTAL CRAMER Rep #: [id number] : 1955 Provider: Son Ellison MD Age/Sex: 62/F [place] [facility] [place]: Signed HPI HPI Details: CRYSTAL CRAMER, [...] that in November of this year at [facility] she had a transthoracic echocardiogram performed. At that time her LV was thought to be normal with an LVEF of 55-60%. She notes more recently she was admitted to [facility] because of concerns of shortness of breath/dyspnea [...] mg PO DAILY 06/26/18 [History Confirmed 06/26/18] [facility] Medical History Congestive heart failure (Acute) Type [...] normal affect Supplemental Info Transthoracic echocardiogram: 10/28/2015: [facility] Interpretation Summary The study was technically difficult. [...] LVEF reported at 70% Cardiac catheterization: 09/20/2015: [facility] Final impression: 1. Elevated left ventricular end [...] long-term current use of insulin E11.9 06/26/18 9040 <Electronically signed by Son Ellison MD> Date Son Ellison MD Cosigner Signature: Date (if applicable) CC: You Parks MD 12 LEAD EKG PERFORMED Observed: 06/26/2018 Status: F Source: [facility] 1:08 PM [facility] REPOSITORY [facility] [address] [place] [address] 12 Lead EKG performed by [facility] 06/26/18 1308 MR#: [id number] Acct: [id number] Name: CRYSTAL CRAMER Rep #: [id number] : 1955 62 From: Son Ellison MD Attending Dr: Son Ellison MD Status: DEP AMB Ordering Dr: Son Ellison MD Date: 06/26/18 [place] [facility] Sex: F C Admitted: [facility]/12 Lead EKG performed by [facility] ECG Report Interpretation Somatic / motion artifactSinus Rhythm Leftward axisPoor R wave progressionElectronically signed on 06/26/2018 at 14:08 by Son Ellison Software Version 8610 06/26/18 1411 Date Son Ellison MD CC: You Parks MD Date Dictated: 06/26/18 1308 Date Transcribed: 06/26/188 Net C Developer: PM Signed CBC Collected: 06/22/2018 Status: F Source: [place] [employer] 5:00 AM [facility] REPOSITORY TYPE CODE TESTS [...] fL Low MPV 7.2 Performed By: #### BMP, GFR #### [place] [address] #### ANEU, CBC, ADIFF #### [address] [address] .AUTO DIFF Collected: 06/22/2018 Status: F Source: [facility] 5:00 AM [facility] REPOSITORY TYPE [...] ) Basophil, 0.10 Absolute Performed By: #### BMP, GFR #### [place] [address] #### ANEU, CBC, ADIFF #### [address] [address] .NEUABS Collected: 06/22/2018 Status: F Source: [facility] 5:00 [facility] REPOSITORY TYPE CODE TESTS RESULT OUT OF REFERENCE UNITS RANGE LAB ANEU(LOINC) 2.85-6.16 10 3/mcL High Neutrophil, 12.40 Absolute Performed By: #### LEON, GFR #### [place] [address] #### ANEU, CBC, ADIFF #### [place] [address] [place], [place] [address] BMP Collected: 06/22/2018 Status: F Source: [facility] 5:00 [facility] REPOSITORY TYPE CODE TESTS RESULT OUT OF [...] mg/dL Calcium Lvl 9.3 Performed By: #### LEON, GFR #### [place] [address] #### ANEU, CBC, ADIFF #### [place] [address] [place], [place] [address] .GFR Collected: 06/22/2018 Status: F Source: [facility] 5:00 [facility] REPOSITORY TYPE CODE TESTS RESULT OUT OF REFERENCE UNITS RANGE LAB GFRAA(LOINC ml/min/1.73 ) sqm GFR 52 [place] Result Comment: GFR Population mean for , [...] meters Performed By: #### BMP, GFR #### [place] [address] #### ANEU, CBC, ADIFF #### [address] [address] XR CHEST 2 VIEWS Observed: 05/24/2018 Status: F Source: [facility] 3:46 AM [facility] REPOSITORY ORIGINAL [...] AM CBC Collected: 05/24/2018 Status: F Source: [facility] 3:37 AM [facility] REPOSITORY TYPE CODE TESTS RESULT OUT OF [...] fL Low MPV 7.1 Performed By: #### GFR, PBNP, TROP, BMP #### [address] [address] #### CBC, ANEU, ADIFF #### [address] [address] .AUTO DIFF Collected: 05/24/2018 Status: F Source: [facility] 3:37 AM [facility] REPOSITORY TYPE CODE TESTS RESULT OUT OF [...] 0.10 Absolute Performed By: #### GFR, PBNP, TROP, BMP #### [place] [address] #### CBC, ANEU, ADIFF #### [address] [address] .NEUABS Collected: 05/24/2018 Status: F Source: [facility] 3:37 AM [facility] REPOSITORY TYPE CODE TESTS RESULT OUT OF REFERENCE UNITS RANGE LAB ANEU(LOINC) 2.85-6.16 10 3/mcL High Neutrophil, 11.60 Absolute Performed By: #### GFR, PBNP, TROP, BMP #### [place] [address] #### CBC, ANEU, ADIFF #### [address] [address] BMP Collected: 05/24/2018 Status: F Source: [facility] 3:37 AM [facility] REPOSITORY TYPE CODE TESTS RESULT OUT OF [...] mg/dL Calcium Lvl 9.7 Performed By: #### GFR, PBNP, TROP, BMP #### [place] [address] #### CBC, ANEU, ADIFF #### [address] [address] .GFR Collected: 05/24/2018 Status: F Source: [place] [employer] 3:37 AM [facility] REPOSITORY TYPE CODE TESTS RESULT OUT OF REFERENCE UNITS RANGE LAB GFRAA(LOINC ml/min/1.73 ) sqm GFR 44 [place] Result Comment: GFR Population mean for , [...] square meters Performed By: #### GFR, PBNP, TROP, BMP #### [address] [address] #### CBC, ANEU, ADIFF #### [address] [address] TROP Collected: 05/24/2018 Status: F Source: [facility] 3:37 AM [facility] REPOSITORY TYPE CODE TESTS RESULT OUT OF REFERENCE UNITS RANGE LAB TROP(LOINC) 0.000-0.040 ng/mL Troponin <0.020 Result Comment: Troponin I reference range: 0.00-0.040 ng/mL Negative and non-diagnostic. >0.040 ng/mL Consistent with cardiac damage, increased clinical risk and possibility of myocardial infarction. Serial measurements, a rise & fall in test results, clinical history, appropriate symptoms and/or ECG changes may help assess possibility of NV. *Other non-acute coronary syndrome conditions such as CHF, myocarditis, pulmonary emboli, sepsis and cardiac surgery could result in myocardial damage and increased troponin levels. Performed By: #### GFR, PBNP, TROP, BMP #### [place] [address] #### CBC, ANEU, ADIFF #### [address] [address] PBNP Collected: 05/24/2018 Status: F Source: [facility] 3:37 AM [facility] REPOSITORY TYPE CODE TESTS RESULT OUT OF REFERENCE UNITS RANGE LAB PBNP(LOINC) 0-125 pg/mL High N-Terminal 259 proBNP Result Comment: NT-proBNP results of less than 300 pg/mL effectively rules out acute congestive heart failure with 99% negative predictive value. Performed By: #### GFR, PBNP, TROP, BMP #### [place] [address] #### CBC, ANEU, ADIFF #### [address] [address] EMERGENCY DEPARTMENT Observed: 05/23/2018 Status: F Source: [facility] SUMMARY 3:38 PM [facility] REPOSITORY [facility] Medical Records Department [address] [place] [address] Emergency Department Summary 05/23/18 1439 MR#: [id number] Acct: [id number] Name: CRYSTAL CRAMER Rep #: [id number] : 1955 62 From: Mukul Rico MD [...] elbow contusion This note was generated with [employer] dictation software. It may contain incorrect words, [...] your Primary Care Provider. Call [facility] ([phone]) or report to the closest Emergency Room. Call 911 if necessary. 05/23/18 1538 <Electronically signed by Mukul Rico MD> Date Mukul Rico MD Cosigner Signature (If Indicated): Date CC: You Parks MD CHEST PA AND LATERAL Observed: 05/23/2018 Status: F Source: [facility] 1:58 PM [facility] REPOSITORY [facility] Imaging Services [address] [place] [address] Chest PA and Lateral MR#: [id number] Acct: [id number] Name: CRYSTAL CRAMER Rep #: [id number] : 1955 F 62 From: Bita Hunter MD PCP: You Parks MD Status: DEP ER Study: Chest PA and Lateral Date of Exam: 05/23/18 Exam# [id number] Ordering Dr: Mukul Rico MD STUDY: X-RAY [...] CC: Mukul Rico MD; You Parks MD Net C Developer: Signed ELBOW MIN 3 VIEWS Observed: 05/23/2018 Status: F Source: [facility] 12:56 PM [facility] REPOSITORY [facility] Imaging Services [address] [place] [address] Elbow min 3 Views MR#: [id number] Acct: [id number] Name: CRYSTAL CRAMER Rep #: [id number] : 1955 F 62 From: Bita Hunter MD PCP: You Parks MD Status: PRE ER Study: Elbow min 3 Views Date of Exam: 05/23/18 Exam# [id number] Ordering Dr: Mukul Rico MD STUDY: X-RAY [...] CC: Mukul Rico MD; You Parks MD Net C Developer: Signed PROGRESS Observed: 05/23/2018 Status: COMPLETED Source: [place] 12:28 PM [facility] REPOSITORY HNO ID: [id number] Author: Carlyn Wu Service: (none) Author Type: [...] and lack of investigative tools available at 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, recommend patient be seen at nearest ED, refused Squad friend present will transport, report called to [facility]. Carlyn Wu CNP Referring Provider: SELF [200] Allergies As of Date: 05/23/2018 Noted Allergy Reaction BACTRIM (SULFAMETHOXAZOLE-TRIMETH*07/31/2017 4 - Hives TORADOL (KETOROLAC) 03/22/2006 14 - Other: See Comments Comments: Increase BP CIPROFLOXACIN 06/10/2013 2 - Rash FLEXERIL (CYCLOBENZAPRINE) 06/10/2013 2 - Rash METFORMIN 06/28/2017 14 - Other: See Comments Comments: Migraines Date Reviewed: 05/23/2018 Reviewed by: Carole ([facility]) KENROY Henriquez - Fully Assessed Reason for [...] 05/23/18 CBC Collected: 05/20/2018 Status: F Source: [facility] 9:39 AM [facility] REPOSITORY TYPE CODE TESTS RESULT OUT OF [...] Performed By: #### ANEU, ADEMELI, CBC #### [address] [address] #### PBNP, GFR, BMP #### [place] [address] .AUTO DIFF Collected: 05/20/2018 Status: F Source: [facility] 9:39 AM [facility] REPOSITORY TYPE CODE TESTS RESULT OUT OF [...] Performed By: #### ANEU, ADIFF, CBC #### [place] [id number] #### PBNP, GFR, BMP #### [place] [address] .NEUABS Collected: 05/20/2018 Status: F Source: [facility] 9:39 AM [facility] REPOSITORY TYPE CODE TESTS RESULT OUT OF REFERENCE UNITS RANGE LAB ANEU(LOINC) 2.85-6.16 10 3/mcL High Neutrophil, 9.20 Absolute Performed By: #### ANEU, ADIFF, CBC #### [address] [address] #### PBNP, GFR, BMP #### [place] [address] BMP Collected: 05/20/2018 Status: F Source: [facility] 9:39 AM [facility] REPOSITORY TYPE CODE TESTS RESULT OUT OF [...] Performed By: #### ANEU, ADIFF, CBC #### [address] [address] #### PBNP, GFR, BMP #### [place] [address] [place] [address] .GFR Collected: 05/20/2018 Status: F Source: [facility] 9:39 AM [facility] REPOSITORY TYPE CODE TESTS RESULT OUT OF REFERENCE UNITS RANGE LAB GFRAA(LOINC ml/min/1.73 ) sqm GFR 39 [place] Result Comment: GFR Population mean for , [...] meters Performed By: #### ANEUANGELIFF, CBC #### [address] [address] #### PBNP, GFR, BMP #### [address] [address] PBNP Collected: 05/20/2018 Status: F Source: [facility] 9:39 AM [facility] REPOSITORY TYPE CODE TESTS RESULT OUT OF REFERENCE UNITS RANGE LAB PBNP(LOINC) 0-125 pg/mL High N-Terminal 150 proBNP Result Comment: NT-proBNP results of less than 300 pg/mL effectively rules out acute congestive heart failure with 99% negative predictive value. Performed By: #### EMILY, FRED, CBC #### [address] [address] #### PBNP, GFR, BMP #### [place] [id number] CBC W/DIFF, AUTOMATED Collected: 05/16/2018 Status: F Source: [facility] 10:47 AM [facility] REPOSITORY TYPE CODE TESTS RESULT OUT OF [...] 1.81 Performed By: #### L100.0100, L101.9900 #### [facility] [address] [facility] [id number] ERYTHROCYTE SED RATE Collected: 05/16/2018 Status: F Source: [facility] 10:47 AM [facility] REPOSITORY TYPE CODE TESTS RESULT OUT OF RANGE REFERENCE UNITS LAB L102.0000 0-30 mm/hr High SED RATE 102 Performed By: #### L100.0100, L101.9900 #### [facility] [address] [facility] [id number] COMPREHENSIVE METABOLIC Collected: 05/16/2018 Status: F Source: [facility] 10:47 AM [facility] REPOSITORY TYPE CODE TESTS RESULT OUT OF [...] Performed By: #### L500.4050, L501.6710, L505.7010 #### [facility] [address] [place], [place], [address] CRP Collected: 05/16/2018 Status: F Source: [facility] 10:47 AM [facility] REPOSITORY TYPE CODE TESTS RESULT OUT OF RANGE REFERENCE UNITS LAB L501.6710 0.0-3.0 mg/L High 45.40 C-REACTIVE PROT Result Comment: C-Reactive Protein (CRP) provides useful information for the diagnosis, therapy and monitoring of inflammatory processes and associated diseases. For the evaluation of Relative Risk for Cardiovascular Disease, a High Sensitivity CRP (HSCRP) should be ordered. Performed By: #### L500.4050, L501.6710, L505.7010 #### [facility] [address] [place], [address] RHEUMATOID FACTOR Collected: 05/16/2018 Status: F Source: [facility] 10:47 AM [facility] REPOSITORY TYPE CODE TESTS RESULT OUT OF RANGE REFERENCE UNITS LAB L505.7010 <15 IU/mL Normal RHEUMATOID FAC < 10.0 Performed By: #### L500.4050, L501.6710, L505.7010 #### [facility] [address] [place], [address] PELVIS 1 OR 2 VIEWS Observed: 05/16/2018 Status: F Source: [facility] 10:47 AM [facility] REPOSITORY [facility] Imaging Services [address] [place] [address] Pelvis 1 or 2 Views MR#: [id number] Acct: [id number] Name: CRYSTAL CRAMER Rep #: [id number] : 1955 F 62 From: Clarence Skinner MD PCP: You Parks MD Status: REG CLI Study: Pelvis 1 or 2 Views Date of Exam: 05/16/18 Exam# [id number] Ordering Dr: Samra Jacques MD STUDY: X-RAY [...] CC: Samra Jacques MD; You Parks MD Net C Developer: Signed ANTINUCLEAR ANTIBODIES Collected: 05/16/2018 Status: F Source: [facility] 10:47 AM [facility] REPOSITORY TYPE CODE TESTS RESULT OUT OF RANGE REFERENCE UNITS LAB L3100.5475 Negative Normal Negative AMBER-DIRECT Result Comment: Performed at: [facility] [address] [id number] Community Service Representative: Salazar Palma PhD, Phone: [phone] Performed By: #### L3100.5475 #### [facility] (refer to report for specific site) refer to report for address and phone number HEPATITIS B SURFACE Collected: 05/16/2018 Status: F Source: [place] [facility] 10:47 AM [facility] REPOSITORY TYPE CODE TESTS RESULT OUT OF RANGE REFERENCE UNITS LAB L3100.0400 Negative Normal HB Negative SURF AG Result Comment: Performed at: [facility] [address] [id number] Community Service Representative: Salazar Palma PhD, Phone: [phone] Performed at: - [address] [id number] Community Service Representative: Trevon Moncada PhD, Phone: [phone] Performed at: - [address] [id number] Community Service Representative: Nabeel Hendrix MD, Phone: [phone] Performed By: #### L3100.0390, L3100.0528, L3100.0625, L3410.1400, L4600.0100 #### [facility] (refer to report for specific site) refer to report for address and phone number HEP B SURFACE Collected: 05/16/2018 Status: F Source: [place] ANTIBODIES 10:47 AM [facility] REPOSITORY TYPE CODE TESTS RESULT OUT OF [...] 05/16/2018 Status: F Source: [place] 10:47 AM [facility] REPOSITORY TYPE CODE TESTS RESULT OUT OF RANGE REFERENCE UNITS LAB L3100.0650 0.0-0.9 s/co ratio Normal HEP C AB 0.4 Result Comment: Negative: < 0.8 Indeterminate: 0.8 - 0.9 Positive: > 0.9 The CDC recommends that a positive HCV antibody result be followed up with a HCV Nucleic Acid Amplification test (492457). Performed By: #### L3100.0390, L3100.0528, L3100.0625, L3410.1400, L4600.0100 #### [facility] (refer to report for specific site) refer to report for address and phone number HLA B27 Collected: 05/16/2018 Status: F Source: [place] 10:47 AM [facility] REPOSITORY TYPE CODE TESTS RESULT OUT OF RANGE REFERENCE UNITS LAB L3410.1500 . Normal HLA Negative B27 Result Comment: HLA-B*27 Negative B27 allele interpretation for all loci based on IMGT/HLA database version 3.27 This test was developed and its performance characteristics determined by [facility]. It has not been cleared or approved by the Food and Drug Administration. HLA Lab CLIA ID Number [id number] This test was performed using PCR (Polymerase [...] 05/16/2018 Status: F Source: [place] 10:47 AM [facility] REPOSITORY TYPE CODE TESTS RESULT OUT OF RANGE REFERENCE UNITS LAB L4600.0100 0-19 units Normal ANTI-CCP 6 [id number] Result Comment: Negative <20 Weak positive 20 - 39 Moderate positive 40 - 59 Strong positive >59 Performed By: #### L3100.0390, L3100.0528, L3100.0625, L3410.1400, L4600.0100 #### [facility] (refer to report for specific site) refer to report for address and phone number XR CHEST 2 VIEWS Observed: 05/15/2018 Status: F Source: [facility] 7:30 AM [facility] REPOSITORY ORIGINAL Clinical history: Short of breath. [...] AM CBC Collected: 05/15/2018 Status: F Source: [place] [employer] 5:12 AM [facility] REPOSITORY TYPE CODE TESTS RESULT OUT OF [...] Performed By: #### ANEU, CBC, ADIFF #### [address] [address] #### FES, MG, GFR, BMP #### [address] [address] .AUTO DIFF Collected: 05/15/2018 Status: F Source: [facility] 5:12 AM [facility] REPOSITORY TYPE CODE TESTS RESULT OUT OF [...] Performed By: #### ANEU, CBC, ADIFF #### [address] [address] #### FES, MG, GFR, BMP #### [address] [address] .NEUABS Collected: 05/15/2018 Status: F Source: [facility] 5:12 AM [facility] REPOSITORY TYPE CODE TESTS RESULT OUT OF REFERENCE UNITS RANGE LAB ANEU(LOINC) 2.85-6.16 10 3/mcL High Neutrophil, 8.00 Absolute Performed By: #### ANEU, CBC, ADIFF #### [address] [address] #### FES, MG, GFR, BMP #### [address] [address] BMP Collected: 05/15/2018 Status: F Source: [facility] 5:12 AM [facility] REPOSITORY TYPE CODE TESTS RESULT OUT OF [...] Performed By: #### ANEU, CBC, ADIFF #### [address] [address] #### FES, MG, GFR, BMP #### [address] [address] MG Collected: 05/15/2018 Status: F Source: [facility] 5:12 AM [facility] REPOSITORY TYPE CODE TESTS RESULT OUT OF REFERENCE UNITS RANGE LAB MG(LOINC) 1.8-2.4 mg/dL Low Magnesium Lvl 1.6 Performed By: #### ANEU, CBC, ADIFF #### [address] [address] #### FES, MG, GFR, BMP #### [address] [address] FES Collected: 05/15/2018 Status: F Source: [facility] 5:12 AM [facility] REPOSITORY TYPE CODE TESTS RESULT OUT OF RANGE REFERENCE UNITS LAB FE(LOINC) 50-70 mcg/dL Low Iron 18 LAB IBC(LOINC) 250-450 mcg/dL TIBC 284 LAB FESAT(LOINC % ) Iron Sat 6 Performed By: #### ANEU, CBC, ADIFF #### [place] [address] [place], [place] [address] #### FES, MG, GFR, BMP #### [address] [address] .GFR Collected: 05/15/2018 Status: F Source: [facility] 5:12 AM [facility] REPOSITORY TYPE CODE TESTS RESULT OUT OF REFERENCE UNITS RANGE LAB GFRAA(LOINC ml/min/1.73 ) sqm GFR 46 [place] Result Comment: GFR Population mean for , [...] Performed By: #### ANEU, CBC, ADIFF #### [address] [place], [place] [address] #### FES, MG, GFR, BMP #### [address] [address] BMP Collected: 05/14/2018 Status: F Source: [facility] 11:12 AM [facility] REPOSITORY TYPE CODE TESTS RESULT OUT OF [...] 9.1 Performed By: #### BMP, GFR #### [address] [address] .GFR Collected: 05/14/2018 Status: F Source: [facility] 11:12 AM [facility] REPOSITORY TYPE CODE TESTS RESULT OUT OF REFERENCE UNITS RANGE LAB GFRAA(LOINC ml/min/1.73 ) sqm GFR 44 [place] Result Comment: GFR Population mean for , [...] meters Performed By: #### BMP, GFR #### [address] [address] CBC Collected: 05/13/2018 Status: F Source: [facility] 2:41 [facility] REPOSITORY TYPE CODE TESTS RESULT OUT OF [...] Performed By: #### ADIFF, CBC, ANEU #### [address] [place], [place] [address] #### GFR, PBNP, BMP #### [address] [address] .AUTO DIFF Collected: 05/13/2018 Status: F Source: [facility] 2:41 [facility] [place] REPOSITORY TYPE CODE TESTS RESULT OUT OF [...] Performed By: #### FRED, CBC, ANEU #### [address] [place], [place] [address] #### GFR, PBNP, BMP #### [place] [address] .NEUABS Collected: 05/13/2018 Status: F Source: [facility] 2:41 [facility] [place] REPOSITORY TYPE CODE TESTS RESULT OUT OF REFERENCE UNITS RANGE LAB ANEU(LOINC) 2.85-6.16 10 3/mcL High Neutrophil, 9.70 Absolute Performed By: #### FRED, CBC, ANEU #### [address] [place], [place] [address] #### GFR, PBNP, BMP #### [place] [address] BMP Collected: 05/13/2018 Status: F Source: [facility] 2:41 [facility] [place] REPOSITORY TYPE CODE TESTS RESULT OUT OF [...] Performed By: #### ADEMELI, CBC, ANEU #### [facility] [address] [place], [place] [address] #### GFR, PBNP, BMP #### [address] [address] .GFR Collected: 05/13/2018 Status: F Source: [facility] 2:41 PM [facility] REPOSITORY TYPE CODE TESTS RESULT OUT OF REFERENCE UNITS RANGE LAB GFRAA(LOINC ml/min/1.73 ) sqm GFR 50 [place] Result Comment: GFR Population mean for , [...] Performed By: #### ADIFF, CBC, ANEU #### [address] [address] [place], [place] [address] #### GFR, PBNP, BMP #### [facility] [address] [place] [address] PBNP Collected: 05/13/2018 Status: F Source: [facility] 2:41 PM [facility] REPOSITORY TYPE CODE TESTS RESULT OUT OF REFERENCE UNITS RANGE LAB PBNP(LOINC) 0-125 pg/mL High N-Terminal 584 proBNP Result Comment: NT-proBNP results of less than 300 pg/mL effectively rules out acute congestive heart failure with 99% negative predictive value. Performed By: #### ADIFF, CBC, ANEU #### [address] [place], [place] [address] #### GFR, PBNP, BMP #### [place] [address] [place], [place] [address] XR CHEST 2 VIEWS Observed: 05/06/2018 Status: F Source: [facility] 1:41 PM [facility] REPOSITORY ORIGINAL XR CHEST 2 VIEWS CLINICAL [...] PM CBC Collected: 05/06/2018 Status: F Source: [facility] 1:22 PM [facility] REPOSITORY TYPE CODE TESTS RESULT OUT OF [...] Performed By: #### ANEU, ADIFF, CBC #### [address] [address] #### GFR, BMP, PBNP #### [address] [address] .AUTO DIFF Collected: 05/06/2018 Status: F Source: [facility] 1:22 PM [facility] REPOSITORY TYPE CODE TESTS RESULT OUT OF [...] Performed By: #### ANEU, ADIFF, CBC #### [address] [address] #### GFR, BMP, PBNP #### [address] [address] .NEUABS Collected: 05/06/2018 Status: F Source: [facility] 1:22 PM [facility] REPOSITORY TYPE CODE TESTS RESULT OUT OF REFERENCE UNITS RANGE LAB ANEU(LOINC) 2.85-6.16 10 3/mcL High Neutrophil, 8.90 Absolute Performed By: #### ANEU, ADIFF, CBC #### [address] [address] #### GFR, BMP, PBNP #### [address] [address] BMP Collected: 05/06/2018 Status: F Source: [facility] 1:22 PM [facility] REPOSITORY TYPE CODE TESTS RESULT OUT OF [...] Performed By: #### ANEU, ADIFF, CBC #### [address] [address] #### GFR, BMP, PBNP #### [address] [address] .GFR Collected: 05/06/2018 Status: F Source: [facility] 1:22 PM [facility] REPOSITORY TYPE CODE TESTS RESULT OUT OF REFERENCE UNITS RANGE LAB GFRAA(LOINC ml/min/1.73 ) sqm GFR 57 [place] Result Comment: GFR Population mean for , [...] 15 mL/min/1.73 square meters Performed By: #### FRED DIAZ, CBC #### [address] [address] #### GFR, BMP, PBNP #### [place] [address] PBNP Collected: 05/06/2018 Status: F Source: [facility] 1:22 PM [facility] REPOSITORY TYPE CODE TESTS RESULT OUT OF REFERENCE UNITS RANGE LAB PBNP(LOINC) 0-125 pg/mL High N-Terminal 284 proBNP Result Comment: NT-proBNP results of less than 300 pg/mL effectively rules out acute congestive heart failure with 99% negative predictive value. Performed By: #### EMILY, ADEMELI, CBC #### [address] [address] #### GFR, BMP, PBNP #### [place] [id number] 12 LEAD ELECTROCARDIOGRAM Observed: 04/22/2018 Status: F Source: [place] 1:36 PM [facility] REPOSITORY [facility] Cardiovascular Services [place] [address] 12 Lead EKG 04/17/18 2307 MR#: [id number] Acct: [id number] Name: CRYSTAL CRAMER Rep #: [id number] : 1955 62 From: Mansoor Hassan MD [...] Normal ECG Confirmed by MANSOOR HASSAN ([id number]), production editor MAIKEL MULLEN ([id number]) on 04/22/2018 1:35:57 PM Referred By: JONATHAN Confirmed By:MANSOOR HASSAN 04/22/18 1336 Date Mansoor Hassan MD CC: oYu Parks MD; [place] Loya Signed EMERGENCY DEPARTMENT Observed: 04/18/2018 Status: F Source: [place] SUMMARY 8:13 AM [facility] REPOSITORY [facility] Medical Records Department [address] [place] [address] Emergency Department Summary 04/17/18 2313 MR#: [id number] Acct: [id number] Name: CRYSTAL CRAMER Rep #: [id number] : 1955 62 From: [place] Mortensen PCP: [...] respiratory infection This note was generated with LiveExercise dictation software. It may contain incorrect words, spelling, and punctuation that were not noted in review of the chart prior to signing ED Disposition - Plan for ED Patient: Disposition: Home or Assisted Living Chief Complaint: Nausea/Vomiting Diagnosis: Nausea and vomiting, Upper respiratory infection Instructions: ED Nausea Vomiting, ED URI Viral Referrals: You Parsk MD [Primary Care Provider] - 3-5 Days if not improving What to do if you have Problems For any increased pain, shortness of breath, bleeding, nausea or vomiting, chest pain, or any unexpected problems, contact your Primary Care Provider. Call [facility] ([phone]) or report to the closest Emergency Room. Call 911 if necessary. 04/18/18 0349 <Electronically signed by [place] Mortensen> Date [place] Mortensen Cosigner Signature (If Indicated): Date CC: You Parks MD CTA CHEST W/WO Observed: 04/18/2018 Status: F Source: [place] CONTRAST 5:10 AM [facility] REPOSITORY [facility] Imaging Services [address] [place] [address] CTA Chest W/WO Contrast MR#: [id number] Acct: [id number] Name: CRYSTAL CRAMER Rep #: [id number] : 1955 F 62 From: Tristan De La Garza MD PCP: You Parks MD Status: REG ER Study: CTA Chest W/WO Contrast Date of Exam: 04/18/18 Exam# [id number] Ordering Dr: [place] Loya DO STUDY: CTA [...] La Garza MD at 8:36 EDT Tel [phone], Service support , CC: You Parks MD; [place] Loya Net C Developer: Signed CBC W/DIFF, AUTOMATED Collected: 04/17/2018 Status: F Source: [place] 11:15 PM [facility] REPOSITORY TYPE CODE TESTS RESULT OUT OF [...] Lymph 1.84 Performed By: #### L100.0100 #### [facility] [address] [place], [place], [id number] LIVER PROFILE Collected: 04/17/2018 Status: F Source: [place] 11:15 PM [facility] REPOSITORY TYPE CODE TESTS RESULT OUT OF [...] 0.28 Performed By: #### L500.3400, L500.4050 #### [facility] [address] [place], [place], [id number] COMPREHENSIVE METABOLIC Collected: 04/17/2018 Status: F Source: [facility] 11:15 PM [facility] REPOSITORY TYPE CODE TESTS RESULT OUT OF [...] 9 Performed By: #### L500.3400, L500.4050 #### [facility] [address] [facility] [place], [address] LIPASE Collected: 04/17/2018 Status: F Source: [place] 11:15 PM [facility] REPOSITORY TYPE CODE TESTS RESULT OUT OF RANGE REFERENCE UNITS LAB L501.2450 73-393 U/L Normal LIPASE 89 Performed By: #### L501.2450 #### [facility] [address] [place], [address] ACUTE ABDOMEN INC Observed: 04/17/2018 Status: F Source: [place] CHEST 11:13 PM [facility] REPOSITORY [facility] Imaging Services [address] [place] [address] Acute Abdomen Inc Chest MR#: [id number] Acct: [id number] Name: CRYSTAL CRAMER Rep #: [id number] : 1955 F 62 From: Ashwini Russo MD PCP: You Parks MD Status: REG ER Study: Acute Abdomen Inc Chest Date of Exam: 04/17/18 Exam# [id number] Ordering Dr: [place] Loya DO STUDY: X-RAY [...] Russo MD at 0:23 EDT Tel Direct: [phone], Service support , CC: You Parks MD; [place] Loya Net C Developer: Signed 12 LEAD ELECTROCARDIOGRAM Observed: 04/10/2018 Status: F Source: [place] 12:55 PM [facility] REPOSITORY [facility] [place] [place] [address] 12 Lead EKG 04/06/18 0945 MR#: [id number] Acct: [id number] Name: CRYSTAL CRAMER Rep #: [id number] : 1955 62 From: Son Ellison MD [...] ECG Confirmed by JOSE MANUEL CURRY, SON ([id number]), production editor MAIKEL MULLEN ([id number]) on 04/10/2018 12:55:23 PM Referred By: NADIRA Confirmed By:SON ELLISON MD 04/10/18 1255 Date Son Ellison MD CC: Mansoor Haywood DO; You Parks MD Signed EMERGENCY DEPARTMENT Observed: 04/09/2018 Status: F Source: [place] SUMMARY 4:31 PM [facility] REPOSITORY [facility] Medical Records Department [address] [place] [address] Emergency Department Summary 04/09/18 1055 MR#: [id number] Acct: [id number] Name: CRYSTAL CRAMER Rep #: [id number] : 1955 62 From: Ray Perez MD [...] and vomiting This note was generated with StoreFront.netation software. It may contain incorrect words, spelling, [...] problems, contact your Primary Care Provider. Call [facility] ([phone]) or report to the closest Emergency Room. Call 911 if necessary. 04/09/18 1631 <Electronically signed by Ray Perez MD> Date Ray Perez MD Cosigner Signature (If Indicated): Date CC: You Parks MD DISCHARGE INSTRUCTION Observed: 04/09/2018 Status: F Source: [place] 4:31 PM [facility] REPOSITORY [facility] Medical Records Department [address] [place] [address] Discharge Instruction 04/09/18 1232 MR#: [id number] Acct: [id number] Name: CRYSTAL CRAMER Rep #: [id number] : 1955 62 From: Ray Perez MD [...] your Primary Care Provider. Call [facility] ([phone]) or report to the closest Emergency Room. Call 911 if necessary. 04/09/18 1631 <Electronically signed by Ray Perez MD> Date Ray Perez MD Cosigner Signature (If Indicated): Date CC: You Parks MD EMERGENCY DEPARTMENT Observed: 04/06/2018 Status: F Source: [place] SUMMARY 4:39 PM [facility] REPOSITORY [facility] Medical Records Department [address] [place] [address] Emergency Department Summary 04/06/18 0929 MR#: [id number] Acct: [id number] Name: CRYSTAL CRAMER Rep #: [id number] : 1955 62 From: Mansoor Haywodo DO PCP: You Parks MD Status: DEP [...] wall pain This note was generated with LiveExercise dictation software. It may contain incorrect words, [...] problems, contact your Primary Care Provider. Call [facility] ([phone]) or report to the closest Emergency Room. Call 911 if necessary. 04/06/18 9741 <Electronically signed by Mansoor Haywood DO> Date Mansoor Franklin Signature (If Indicated): Date CC: You Parks MD URGENT CARE VISIT Observed: 03/25/2018 Status: F Source: [place] REPORT 5:55 PM [facility] REPOSITORY [facility] [address] [place] [address] [address] [place] [address] OFFICE VISIT Date of Service: 03/24/18 MR#: [id number] Acct: [id number] Name: CRYSTAL CRAMER Rep #: [id number] : 1955 Provider: Dwayne STEVENSON Age/Sex: 62/F Location: [facility] Status: Signed Intake Vital Signs03/24/18 Height 5 [...] 03/24/2018 Status: F Source: [place] 3:20 PM [facility] REPOSITORY [facility] Imaging Services [address] [place] [address] Chest PA and Lateral MR#: [id number] Acct: [id number] Name: CRYSTAL CRAMER Rep #: [id number] : 1955 F 62 From: William Gupta DO PCP: You Parks MD Status: REG CLI Study: Chest PA and Lateral Date of Exam: 03/24/18 Exam# [id number] Ordering Dr: Dwayne Trivedi STUDY: X-RAY CHEST [...] William Gupta DO at 18:43 EDT Tel [phone], Service support , CC: Dwayne STEVENSON; You Parks MD Net C Developer: Signed 12 LEAD ELECTROCARDIOGRAM Observed: 03/14/2018 Status: F Source: [place] 1:28 PM [facility]PITAL REPOSITORY [facility] Cardiovascular Services [address] [place] [address] 12 Lead EKG 03/12/18 1757 MR#: [id number] Acct: [id number] Name: CRYSTAL CRAMER Rep #: [id number] : 1955 62 From: Son Ellison MD [...] Confirmed by JOSE MANUEL CURRY, SON ([id number]), production editor MAIKEL MULLEN ([id number]) on 03/14/2018 1:28:23 PM Referred By: SIMI Confirmed By:SON ELLISON MD 03/14/18 1328 Date Son Ellison MD CC: Ashwini Monson MD; You Parks MD Signed EMERGENCY DEPARTMENT Observed: 03/13/2018 Status: F Source: [facility] SUMMARY 1:05 AM [facility] REPOSITORY [facility] Medical Records Department [address] [place] [address] Emergency Department Summary 03/12/182121 MR#: [id number] Acct: [id number] Name: CRYSTAL CRAMER Rep #: [id number] : 1955 62 From: Ashwini Monson MD [...] pain. Past history significant for prior stroke, NV, diabetes, hypertension, high cholesterol, fibromyalgia, paroxysmal A. [...] Impression: Dyspnea This note was generated with LiveExercise dictation software. It may contain incorrect words, [...] problems, contact your Primary Care Provider. Call [facility] ([phone]) or report to the closest Emergency Room. Call 911 if necessary. 03/13/18 0105 <Electronically signed by Ashwini Monson MD> Date Ashwini Monson MD Cosigner Signature (If Indicated): Date CC: You Parks MD DISCHARGE INSTRUCTION Observed: 03/12/2018 Status: F Source: [place] 9:23 PM [facility] REPOSITORY [facility] Medical Records Department [address] [place] [address] Discharge Instruction 03/12/182121 MR#: [id number] Acct: [id number] Name: CRYSTAL CRAMER Rep #: [id number] : 1955 62 From: Ashwini Monson MD [...] your Primary Care Provider. Call [facility] ([phone]) or report to the closest Emergency Room. Call 911 if necessary. 03/12/182122 <Electronically signed by Ashwini Monson MD> Date Ashwini Monson MD Cosigner Signature (If Indicated): Date CC: You Parks MD CBC W/DIFF, AUTOMATED Collected: 03/12/2018 Status: F Source: [place] 6:32 PM [facility] REPOSITORY TYPE CODE TESTS RESULT OUT OF [...] Lymph 1.82 Performed By: #### L100.0100 #### [facility] [address] [place], [address] BASIC METABOLIC Collected: 03/12/2018 Status: F Source: [facility] PROFILE ([facility]) 6:32 PM [facility] REPOSITORY TYPE CODE TESTS RESULT OUT OF [...] GAP 7 Performed By: #### L500.2500 #### [facility] [address] [facility] [place], [address] BNP,B-TYPE NATRIURETIC Collected: 03/12/2018 Status: F Source: [facility] [place]PT[place] 6:32 PM [facility] REPOSITORY TYPE CODE TESTS RESULT OUT OF RANGE REFERENCE UNITS LAB L503.6620 0-100 pg/mL Normal B-TYPE 51.5 LANDON PEP Performed By: #### L503.6620 #### [facility] [address] [facility] [place], [address] CHEST PA AND LATERAL Observed: 03/12/2018 Status: F Source: [place] 5:45 PM [facility] REPOSITORY [facility] Imaging Services [address] [place] [address] Chest PA and Lateral MR#: [id number] Acct: [id number] Name: CRYSTAL CRAMER Rep #: [id number] : 1955 F 62 From: Ray Joy MD PCP: You Parks MD Status: REG ER Study: Chest PA and Lateral Date of Exam: 03/12/18 Exam# [id number] Ordering Dr: Ashwini Monson MD STUDY: X-RAY [...] CC: Ashwini Monson MD; You Parks MD Net C Developer: Signed DISCHARGE SUMMARY Observed: 03/11/2018 Status: F Source: [place] 3:15 PM [facility] REPOSITORY [facility] Medical Records Department [address] [place] [address] Discharge Summary 03/11/18 1134 MR#: [id number] Acct: [id number] Name: CRYSTAL CRAMER Rep #: [id number] : 1955 62 From: Qian Guerrero MD PCP: You Parks MD Status: DIS IN Y Location: MS3 [id number] Discharge Date and Diagnosis Date of Admission: [...] applicable Code Visit Inpatient E AND M: 54429 Disch Hosp 03/11/18 1515 <Electronically signed by Qian Guerrero MD> Date Qian Guerrero MD Cosigner Signature (if applicable): Date CC: Qian Guerrero MD; You Parks MD Signed BEDSIDE GLUCOSE Collected: 03/11/2018 Status: F Source: [facility] 11:53 [facility] REPOSITORY TYPE CODE TESTS RESULT OUT OF REFERENCE UNITS RANGE LAB L501.080 70-110 mg/dL High BEDSIDE GLU 224 Result Comment: MANAGEMENT OF PATIENT CARE PER NURSING PROTOCOL Performed By: #### L501.080 #### [facility] Point of Care [address] [facility] [place] [address] DISCHARGE INSTRUCTION Observed: 03/11/2018 Status: F Source: [place] 11:33 [facility] REPOSITORY [facility] Medical Records Department [address] [place] [address] Instructions for Home/Discharge Instructions 03/11/18 1127 MR#: [id number] Acct: [id number] Name: CRYSTAL CRAMER Rep #: [id number] : 1955 62 From: Qian Guerrero MD [...] culture results. You are referred to an core composer machine tender. Continue to monitor your blood sugars. Allergies/Adverse [...] 03/11/2018 Status: F Source: [place] 7:48 AM [facility] REPOSITORY TYPE CODE TESTS RESULT OUT OF RANGE REFERENCE UNITS LAB L501.080 70-110 mg/dL Normal BEDSIDE GLU 97 Result Comment: MANAGEMENT OF PATIENT CARE PER NURSING PROTOCOL Performed By: #### L501.080 #### [facility] Point of Care [facility] [address] [place], [place] [id number] BASIC METABOLIC Collected: 03/11/2018 Status: F Source: MARCUS PROFILE (BMP) 5:35 AM [facility] REPOSITORY TYPE CODE TESTS RESULT OUT OF [...] GAP 7 Performed By: #### L500.2500 #### [facility] [address] [place], [address] CBC W/DIFF, AUTOMATED Collected: 03/11/2018 Status: F Source: [place] 5:35 AM [facility] REPOSITORY TYPE CODE TESTS RESULT OUT OF [...] Lymph 2.73 Performed By: #### L100.0100 #### [facility] [address] [place], [place], [address] BEDSIDE GLUCOSE Collected: 03/10/2018 Status: F Source: MARCUS 9:39 PM [facility] REPOSITORY TYPE CODE TESTS RESULT OUT OF REFERENCE UNITS RANGE LAB L501.080 70-110 mg/dL High BEDSIDE GLU 135 Result Comment: MANAGEMENT OF PATIENT CARE PER NURSING PROTOCOL Performed By: #### L501.080 #### [facility] Point of Care [address] [place] [address] BEDSIDE GLUCOSE Collected: 03/10/2018 Status: F Source: MARCUS 4:23 PM [facility] REPOSITORY TYPE CODE TESTS RESULT OUT OF REFERENCE UNITS RANGE LAB L501.080 70-110 mg/dL High BEDSIDE GLU 303 Result Comment: MANAGEMENT OF PATIENT CARE PER NURSING PROTOCOL Performed By: #### L501.080 #### [facility] Point of Care [address] [place] [address] BEDSIDE GLUCOSE Collected: 03/10/2018 Status: F Source: MARCUS 11:20 AM [facility] REPOSITORY TYPE CODE TESTS RESULT OUT OF REFERENCE UNITS RANGE LAB L501.080 70-110 mg/dL High BEDSIDE GLU 299 Result Comment: MANAGEMENT OF PATIENT CARE PER NURSING PROTOCOL Performed By: #### L501.080 #### [facility] Point of Care [address] [place] [address] BASIC METABOLIC Collected: 03/10/2018 Status: F Source: MARCUS PROFILE (BMP) 5:10 AM [facility] REPOSITORY Order Comment: 'TROP' Serial specimen #1, [...] 9 Performed By: #### L500.2500, L501.4010 #### [facility] [address] [place], [address] TROPONIN-I Collected: 03/10/2018 Status: F Source: MARCUS 5:10 AM [facility] REPOSITORY Order Comment: 'TROP' Serial specimen #1, #2 or #3: 3 TYPE CODE TESTS RESULT OUT OF RANGE REFERENCE UNITS LAB L501.4010 <0.045 ng/mL Normal < 0.015 TROPONIN-I Result Comment: TROPONIN-I EXPECTED VALUES <0.045 Negative 0.045 - 0.590 Consistent with Cardiac Damage > OR = 0.600 Critical Value Not every elevated troponin is indicative of NV. These values should be used with clinical judgement in examining the patient's clinical picture for diagnosis. To establish a diagnosis of NV versus myocardial injury, there must be a demonstrated rise and/or fall in the troponin values, in addition to ischemic symptoms, EKG changes, new regional wall motion abnormality, and/or angiographical evidence. PLEASE NOTE: REFERENCE RANGES EDITED 17 Performed By: #### L500.2500, L501.4010 #### [facility] [place], [address] CBC W/DIFF, AUTOMATED Collected: 03/10/2018 Status: F Source: MARCUS 5:10 AM [facility] REPOSITORY TYPE CODE TESTS RESULT OUT OF [...] Lymph 2.19 Performed By: #### L100.0100 #### [facility] [address] [facility] [place], [address] HISTORY AND PHYSICAL Observed: 03/10/2018 Status: F Source: [place] EXAM 4:07 AM [facility] REPOSITORY [facility] Medical Records Department [address] [place] [address] History and Physical 03/09/182102 MR#: [id number] Acct: [id number] Name: CRYSTAL CRAMER Rep #: [id number] : 1955 62 From: Jose Oseguera MD PCP: You Parks MD Status: ADM SIMONA Y Location: [place] [address] Problem List (1) Fibromyalgia Status: Chronic (2) [...] 03/10/2018 Status: F Source: MARCUS 1:50 AM [facility] REPOSITORY Order Comment: 'TROP' Serial specimen #1, #2 or #3: 2 TYPE CODE TESTS RESULT OUT OF RANGE REFERENCE UNITS LAB L501.4010 <0.045 ng/mL Normal < 0.015 TROPONIN-I Result Comment: TROPONIN-I EXPECTED VALUES <0.045 Negative 0.045 - 0.590 Consistent with Cardiac Damage > OR = 0.600 Critical Value Not every elevated troponin is indicative of NV. These values should be used with clinical judgement in examining the patient's clinical picture for diagnosis. To establish a diagnosis of NV versus myocardial injury, there must be a demonstrated rise and/or fall in the troponin values, in addition to ischemic symptoms, EKG changes, new regional wall motion abnormality, and/or angiographical evidence. PLEASE NOTE: REFERENCE RANGES EDITED 17 Performed By: #### L501.4010 #### [facility] [address] [place], [address] CHEST 1 VIEW Observed: 03/10/2018 Status: F Source: [place] (PORTABLE) 12:00 AM [facility] REPOSITORY [facility] Imaging Services [address] [place] [address] Chest 1 View (Portable) MR#: [id number] Acct: [id number] Name: CRYSTAL CRAMER Marissa Rep #: [id number] : 1955 F 62 From: Bita Hunter MD PCP: You Parks MD Status: ADM SIMONA Study: Chest 1 View (Portable) Date of Exam: 03/10/18 Exam# [id number] Ordering Dr: Jose Oseguera MD STUDY: X-RAY [...] CC: Jose Oseguera MD; You Parks MD Net C Developer: Signed STOOL Observed: 03/09/2018 Status: F Source: MARCUS LACTOFERRIN/WBC 11:54 PM [facility] REPOSITORY Stool Lacto/WBC Normal Reference Range = Negative Fecal WBC Lactoferrin Positive: Fecal WBC Lactoferrin present Performed By: #### M100.0605 #### [facility] [address] [place], [address] LACTIC ACID Collected: 03/09/2018 Status: F Source: MARCUS 11:25 PM [facility] REPOSITORY TYPE CODE TESTS RESULT OUT OF RANGE REFERENCE UNITS LAB L503.6005 0.4-2.0 mmol/L Normal LACTIC ACID 1.8 Performed By: #### L503.6005 #### [facility] [address] [place], [address] TROPONIN-I Collected: 03/09/2018 Status: F Source: [place] 10:56 PM [facility] REPOSITORY Order Comment: 'TROP' Serial specimen #1, #2, #3, or #4: 1 TYPE CODE TESTS RESULT OUT OF RANGE REFERENCE UNITS LAB L501.4010 <0.045 ng/mL Normal < 0.015 TROPONIN-I Result Comment: TROPONIN-I EXPECTED VALUES <0.045 Negative 0.045 - 0.590 Consistent with Cardiac Damage > OR = 0.600 Critical Value Not every elevated troponin is indicative of NV. These values should be used with clinical judgement in examining the patient's clinical picture for diagnosis. To establish a diagnosis of NV versus myocardial injury, there must be a demonstrated rise and/or fall in the troponin values, in addition to ischemic symptoms, EKG changes, new regional wall motion abnormality, and/or angiographical evidence. PLEASE NOTE: REFERENCE RANGES EDITED 17 Performed By: #### L501.4010 #### [facility] [address] [place], [address] BEDSIDE GLUCOSE Collected: 03/09/2018 Status: F Source: [place] 10:44 PM [facility] REPOSITORY TYPE CODE TESTS RESULT OUT OF REFERENCE UNITS RANGE LAB L501.080 70-110 mg/dL High BEDSIDE GLU 275 Result Comment: MANAGEMENT OF PATIENT CARE PER NURSING PROTOCOL Performed By: #### L501.080 #### [facility] Point of Care [address] [place] [address] EMERGENCY DEPARTMENT Observed: 03/09/2018 Status: F Source: [place] SUMMARY 7:38 PM [facility] REPOSITORY [facility] Medical Records Department [address] [place] [address] Emergency Department Summary 03/09/18 1541 MR#: [id number] Acct: [id number] Name: CRYSTAL CRAMER Rep #: [id number] : 1955 62 From: Carlo Moffett MD [...] response syndrome This note was generated with LiveExercise dictation software. It may contain incorrect words, [...] your Primary Care Provider. Call [facility] ([phone]) or report to the closest Emergency Room. Call 911 if necessary. 03/09/181937 <Electronically signed by Carlo Moffett MD> Date Carlo Moffett MD Cosigner Signature (If Indicated): Date CC: You Parks MD LACTIC ACID Collected: 03/09/2018 Status: F Source: MARCUS 6:45 PM [facility] REPOSITORY Order Comment: Yes/No query for Sepsis Lactate Rule Y TYPE CODE TESTS RESULT OUT OF REFERENCE UNITS RANGE LAB L503.6005 0.4-2.0 mmol/L High LACTIC ACID 2.4 Result Comment: CALLED [facility] 03-09-18 AT 1922PM READ BACK BY SAME Performed By: #### L503.6005 #### [facility] [address] [place], [place], [address] Observed: 03/09/2018 Status: F Source: MARCUS CULTURE, BLOOD (WB) 6:45 PM [facility] REPOSITORY BC No growth in 5 days. Performed By: #### M200.1000 #### [facility] [address] [place], [place], [address] CHEST 1 VIEW Observed: 03/09/2018 Status: F Source: MARCUS (PORTABLE) 6:26 PM [facility] REPOSITORY [facility] Imaging Services [address] [place] [address] Chest 1 View (Portable) MR#: [id number] Acct: [id number] Name: CRYSTAL CRAMER Rep #: [id number] : 1955 F 62 From: Ok Pandey MD PCP: You Parks MD Status: REG ER Study: Chest 1 View (Portable) Date of Exam: 03/09/18 Exam# [id number] Ordering Dr: Carlo Moffett MD STUDY: X-RAY [...] CC: Carlo Moffett MD; You Parks MD Net C Developer: Signed URINALYSIS, COMPLETE Collected: 03/09/2018 Status: F Source: MARCUS 5:35 PM [facility] REPOSITORY Order Comment: Order Date: 03/09/18 Has pt arrived? Y How was Urine Obtained? 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 Performed By: #### M100.0650 #### [facility] [address] [place], [address] ABDOMEN/PELVIS WITHOUT Observed: 03/09/2018 Status: F Source: MARCUS CONT 4:09 PM [facility] REPOSITORY [facility] Imaging Services [address] [place] [address] Abdomen/Pelvis without Cont MR#: [id number] Acct: [id number] Name: CRYSTAL CRAMER Rep #: [id number] : 1955 F 62 From: Lucia Medley MD PCP: You Parks MD Status: REG ER Study: Abdomen/Pelvis without Cont Date of Exam: 03/09/18 Exam# [id number] Ordering Dr: Carlo Moffett MD STUDY: CT [...] CC: Carlo Moffett MD; You Parks MD Net C Developer: Signed CBC W/DIFF, AUTOMATED Collected: 03/09/2018 Status: C Source: MARCUS 2:35 PM [facility] REPOSITORY TYPE CODE TESTS RESULT OUT OF [...] Lisha yepez Performed By: #### L100.0100 #### [facility] [address] [place], [address] COMPREHENSIVE METABOLIC Collected: 03/09/2018 Status: F Source: [facility]ARCUS [facility] 2:35 PM [facility] REPOSITORY TYPE CODE TESTS RESULT OUT OF [...] 9 Performed By: #### L500.4050, L501.2450 #### [facility] [address] [place], [address] LIPASE Collected: 03/09/2018 Status: F Source: [place] 2:35 PM [facility] REPOSITORY TYPE CODE TESTS RESULT OUT OF RANGE REFERENCE UNITS LAB L501.2450 73-393 U/L Normal LIPASE 121 Performed By: #### L500.4050, L501.2450 #### [facility] [address] [place], [address] CRP Collected: 03/09/2018 Status: F Source: [place] 2:35 PM [facility] REPOSITORY TYPE CODE TESTS RESULT OUT OF RANGE REFERENCE UNITS LAB L501.6710 0.0-3.0 mg/L High 76.40 C-REACTIVE PROT Result Comment: C-Reactive Protein (CRP) provides useful information for the diagnosis, therapy and monitoring of inflammatory processes and associated diseases. For the evaluation of Relative Risk for Cardiovascular Disease, a High Sensitivity CRP (HSCRP) should be ordered. Performed By: #### L501.6710 #### [facility] [address] [place], [address] ERYTHROCYTE SED RATE Collected: 03/09/2018 Status: F Source: [place] 2:35 PM [facility] REPOSITORY TYPE CODE TESTS RESULT OUT OF RANGE REFERENCE UNITS LAB L102.0000 0-30 mm/hr High SED RATE 43 Performed By: #### L101.9900 #### [facility] [address] [place], [place], [address] EMERGENCY DEPARTMENT Observed: 03/04/2018 Status: F Source: [place] SUMMARY 1:19 PM [facility] REPOSITORY [facility] Medical Records Department [address] [place] [address] Emergency Department Summary 03/04/18 1315 MR#: [id number] Acct: [id number] Name: CRYSTAL CRAMER Rep #: [id number] : 1955 62 From: Son Long MD [...] Impression: Nausea This note was generated with LiveExercise dictation software. It may contain incorrect words, [...] your Primary Care Provider. Call [facility] ([phone]) or report to the closest Emergency Room. Call 911 if necessary. 03/04/18 1319 <Electronically signed by Son Long MD> Date Son Long MD Cosigner Signature (If Indicated): Date CC: You Parks MD CBC W/DIFF, AUTOMATED Collected: 03/04/2018 Status: F Source: MARCUS 11:12 AM [facility] REPOSITORY TYPE CODE TESTS RESULT OUT OF [...] Lymph 2.47 Performed By: #### L100.0100 #### [facility] [address] [place], [address] COMPREHENSIVE METABOLIC Collected: 03/04/2018 Status: F Source: MARCUS [facility] 11:12 AM [facility] REPOSITORY TYPE CODE TESTS RESULT OUT OF [...] GAP 8 Performed By: #### L500.4050 #### [facility] [address] [place], [place], [address] EMERGENCY DEPARTMENT Observed: 02/27/2018 Status: F Source: [place] SUMMARY 11:17 AM [facility] REPOSITORY [facility] Medical Records Department [address] [place] [address] Emergency Department Summary 02/26/18 1218 MR#: [id number] Acct: [id number] Name: CRYSTAL CRAMER Rep #: [id number] : 1955 62 From: Ramon Young MD [...] 1. Gastroparesis. This note was generated with LiveExercise dictation software. It may contain incorrect words, [...] your Primary Care Provider. Call [facility] ([phone]) or report to the closest Emergency Room. Call 911 if necessary. 02/27/18 1117 <Electronically signed by Ramon Young MD> Date Ramon Young MD Cosigner Signature (If Indicated): Date CC: You Parks MD 12 LEAD ELECTROCARDIOGRAM Observed: 02/24/2018 Status: F Source: [place] 3:39 PM [facility] REPOSITORY [facility] Cardiovascular Services [address] [place] [address] 12 Lead EKG 02/19/18 0957 MR#: [id number] Acct: [id number] Name: CRYSTAL CRAMER Marissa Rep #: [id number] : 1955 62 From: Perfecto Haskins MD [...] ECG Confirmed by PERFECTO HASKINS MD ([id number]), production editor MAIKEL MULLEN ([id number]) on 02/24/2018 3:38:48 PM Referred By: BERNARDINO Confirmed By:PERFECTO HASKINS MD 02/24/18 1538 Date Perfecto Haskins MD CC: Robe Root DO; You Parks MD Signed EMERGENCY DEPARTMENT Observed: 02/22/2018 Status: F Source: [place] SUMMARY 10:49 PM [facility] REPOSITORY [facility] Medical Records Department [address] [place] [address] Emergency Department Summary 02/22/182028 MR#: [id number] Acct: [id number] Name: CRYSTAL CRAMER Rep #: [id number] : 1955 62 From: Mukul Rico MD [...] and vomiting This note was generated with LiveExercise dictation software. It may contain incorrect words, [...] your Primary Care Provider. Call [facility] ([phone]) or report to the closest Emergency Room. Call 911 if necessary. 02/22/18 2249 <Electronically signed by Mukul Rico MD> Date Mukul Rico MD Cosigner Signature (If Indicated): Date CC: You Parks MD CBC W/DIFF, AUTOMATED Collected: 02/22/2018 Status: F Source: MARCUS 8:10 PM [facility] REPOSITORY TYPE CODE TESTS RESULT OUT OF [...] Lymph 2.08 Performed By: #### L100.0100 #### [facility] [address] [place], [place], [address] COMPREHENSIVE METABOLIC Collected: 02/22/2018 Status: F Source: [facility] 8:10 PM [facility] REPOSITORY TYPE CODE TESTS RESULT OUT OF [...] GAP 9 Performed By: #### L500.4050 #### [facility] [address] [facility] [place], [address] EMERGENCY DEPARTMENT Observed: 02/21/2018 Status: F Source: [place] SUMMARY 7:56 AM [facility] REPOSITORY [facility] Medical Records Department [address] [place] [address] Emergency Department Summary 02/21/18 0752 MR#: [id number] Acct: [id number] Name: CRYSTAL CRAMER Rep #: [id number] : 1955 62 From: Jose Alberto Umana [...] Job number on date of service is [id number] This note was generated with StoreFront.netation software. It may contain incorrect words, spelling, [...] your Primary Care Provider. Call [facility] ([phone]) or report to the closest Emergency Room. Call 911 if necessary. 02/21/18 0756 <Electronically signed by Jose Alberto Umana MD> Date Jose Alberto Umana MD Cosigner Signature (If Indicated): Date CC: You Parks MD EMERGENCY DEPARTMENT Observed: 02/19/2018 Status: F Source: [place] SUMMARY 11:41 AM [facility] REPOSITORY [facility] Medical Records Department [address] [place] [address] Emergency Department Summary 02/19/18 1139 MR#: [id number] Acct: [id number] Name: CRYSTAL CRAMER Rep #: [id number] : 1955 62 From: Robe Root DO [...] on chronic] This note was generated with LiveExercise dictation software. It may contain incorrect words, [...] your Primary Care Provider. Call [facility] ([phone]) or report to the closest Emergency Room. Call 911 if necessary. 02/19/18 1141 <Electronically signed by Robe Root DO> Date Robe Root DO Cosigner Signature (If Indicated): Date CC: You Parks MD DISCHARGE INSTRUCTION Observed: 02/19/2018 Status: F Source: [place] 11:41 AM [facility] REPOSITORY [facility] Medical Records Department [address] [place] [address] Discharge Instruction 02/19/18 1141 MR#: [id number] Acct: [id number] Name: CRYSTAL CRAMER Rep #: [id number] : 1955 62 From: Robe Root DO [...] your Primary Care Provider. Call [facility] ([phone]) or report to the closest Emergency Room. Call 911 if necessary. 02/19/18 1141 <Electronically signed by Robe Root DO> Date Charlette Bernardino BAIRES Cosigner Signature (If Indicated): Date CC: You Parks MD CBC W/DIFF, AUTOMATED Collected: 02/19/2018 Status: F Source: MARCUS 10:12 AM [facility] REPOSITORY TYPE CODE TESTS RESULT OUT OF [...] Lymph 2.19 Performed By: #### L100.0100 #### [facility] [address] [place], [address] URINALYSIS, COMPLETE Collected: 02/19/2018 Status: F Source: [place] 10:12 AM [facility] REPOSITORY Order Comment: Order Date: 02/19/18 How [...] URINE SEEN Performed By: #### L400.0001 #### [facility] [address] [facility] [place], [address] BASIC METABOLIC Collected: 02/19/2018 Status: F Source: [place] PROFILE (BMP) 10:12 AM [facility] REPOSITORY TYPE CODE TESTS RESULT OUT OF [...] 8 Performed By: #### L500.2500, L501.4010 #### [facility] [address] [place], [address] TROPONIN-I Collected: 02/19/2018 Status: F Source: [place] 10:12 AM [facility] REPOSITORY TYPE CODE TESTS RESULT OUT OF RANGE REFERENCE UNITS LAB L501.4010 <0.045 ng/mL Normal < 0.015 TROPONIN-I Result Comment: TROPONIN-I EXPECTED VALUES <0.045 Negative 0.045 - 0.590 Consistent with Cardiac Damage > OR = 0.600 Critical Value Not every elevated troponin is indicative of NV. These values should be used with clinical judgement in examining the patient's clinical picture for diagnosis. To establish a diagnosis of NV versus myocardial injury, there must be a demonstrated rise and/or fall in the troponin values, in addition to ischemic symptoms, EKG changes, new regional wall motion abnormality, and/or angiographical evidence. PLEASE NOTE: REFERENCE RANGES EDITED 17 Performed By: #### L500.2500, L501.4010 #### [facility] [address] [facility], [address] EMERGENCY DEPARTMENT Observed: 02/06/2018 Status: F Source: [place] SUMMARY 11:42 PM [facility] REPOSITORY [facility] Medical Records Department [address] [place] [address] Emergency Department Summary 02/05/18 1651 MR#: [id number] Acct: [id number] Name: CRYSTAL CRAMER Rep #: [id number] : 1955 62 From: Mansoor Haywood DO [...] and requested something for pain. She received [place] for which she has at home. Patient will be discharged home. I did contact case management to discuss care plan option for this patient. Impression: 1. Nausea 2. Diabetic hyperglycemia This note was generated with LiveExercise dictation software. It may contain incorrect words, [...] your Primary Care Provider. Call [facility] ([phone]) or report to the closest Emergency Room. Call 911 if necessary. 02/06/18 8856 <Electronically signed by Mansoor Haywood DO> Date Mansoor Haywood DO Cosigner Signature (If Indicated): Date CC: You aPrks MD BEDSIDE GLUCOSE Collected: 02/05/2018 Status: F Source: MARCUS 5:07 PM [facility] REPOSITORY TYPE CODE TESTS RESULT OUT OF REFERENCE UNITS RANGE LAB L501.080 70-110 mg/dL High BEDSIDE GLU 279 Result Comment: MANAGEMENT OF PATIENT CARE PER NURSING PROTOCOL Performed By: #### L501.080 #### [facility] Point of Care [address] [place] [address] BEDSIDE GLUCOSE Collected: 02/05/2018 Status: F Source: MARCUS 3:21 PM [facility] REPOSITORY TYPE CODE TESTS RESULT OUT OF REFERENCE UNITS RANGE LAB L501.080 70-110 mg/dL High BEDSIDE GLU 449 Result Comment: MANAGEMENT OF PATIENT CARE PER NURSING PROTOCOL Performed By: #### L501.080 #### [facility] Point of Care [address] [place] [address] DOWNTIME REPORT Observed: 02/05/2018 Status: F Source: [place] 2:56 PM [facility] REPOSITORY [facility] Medical Records Department [address] [place] [address] Downtime Report MR#: [id number] Acct: [id number] Name: CRYSTAL CRAMER Rep #: [id number] : 1955 62 From: Fabby Mullen MD PCP: You Parks MD Status: DEP ER This patient was seen during an EMR downtime January 20, 2018 - January 27, 2018. This patient may have a combination of paper and electronic documentation or all paper documentation. All documentation is viewable within the e-chart portion of [facility] for each patient visit. BEDSIDE GLUCOSE Collected: 01/28/2018 Status: F Source: [place] 5:55 PM [facility] REPOSITORY TYPE CODE TESTS RESULT OUT OF REFERENCE UNITS RANGE LAB L501.080 70-110 mg/dL High BEDSIDE GLU 349 Result Comment: MANAGEMENT OF PATIENT CARE PER NURSING PROTOCOL Performed By: #### L501.080 #### [facility] Point of Care [address] [place] [address] EMERGENCY DEPARTMENT Observed: 01/28/2018 Status: F Source: [place] SUMMARY 5:13 PM [facility] REPOSITORY [facility] Medical Records [place] [address] Emergency Department Summary 01/28/18 1711 MR#: [id number] Acct: [id number] Name: CRYSTAL CRAMER Marissa Rep #: [id number] : 1955 62 From: Carlo Moffett MD [...] Impression: Gastroparesis This note was generated with LiveExercise dictation software. It may contain incorrect words, [...] problems, contact your Primary Care Provider. Call [facility] ([phone]) or report to the closest Emergency Room. Call 911 if necessary. 01/28/18 5969 <Electronically signed by Carlo Moffett MD> Date Carlo Moffett MD Cosigner Signature (If Indicated): Date CC: You Parks MD DISCHARGE INSTRUCTION Observed: 01/28/2018 Status: F Source: [place] 5:13 PM [facility] H[facility]PITAL REPOSITORY [facility] Medical Records Department [address] [place] [address] Discharge Instruction 01/28/181712 MR#: [id number] Acct: [id number] Name: CRYSTAL CRAMER Rep #: [id number] : 1955 62 From: Carlo Moffett MD [...] your Primary Care Provider. Call [facility] ([phone]) or report to the closest Emergency Room. Call 911 if necessary. 01/28/181712 <Electronically signed by Carlo Moffett MD> Date Carlo Moffett MD Cosigner Signature (If Indicated): Date CC: You Parks MD CBC W/DIFF, AUTOMATED Collected: 01/28/2018 Status: F Source: [place] 3:35 PM [facility] REPOSITORY TYPE CODE TESTS RESULT OUT OF [...] Lymph 1.99 Performed By: #### L100.0100 #### [facility] [address] [facility]. [place], [place], [id number] BASIC METABOLIC Collected: 01/28/2018 Status: F Source: [place] PROFILE (BMP) 3:35 PM [facility] REPOSITORY TYPE CODE TESTS RESULT OUT OF [...] GAP 6 Performed By: #### L500.2500 #### [facility] [address] [place], [address] BASIC METABOLIC Collected: 01/22/2018 Status: F Source: [place] PROFILE (BMP) 12:00 AM [facility] REPOSITORY Order Comment: RESULT(S) PREVIOUSLY REPORTED ON [...] GAP 7 Performed By: #### L500.2500 #### [facility] [address] [place], [address] EMERGENCY DEPARTMENT Observed: 01/17/2018 Status: F Source: [place]EN SUMMARY 12:19 AM [facility] REPOSITORY [facility] Medical Records Department [address] [place] [address] Emergency Department Summary 01/16/18 2246 MR#: [id number] Acct: [id number] Name: CRYSTAL CRAMER Rep #: [id number] : 1955 62 From: [place] Mortensen PCP: [...] of gastroparesis This note was generated with LiveExercise dictation software. It may contain incorrect words, [...] your Primary Care Provider. Call [facility] ([phone]) or report to the closest Emergency Room. Call 911 if necessary. 01/17/18 0019 <Electronically signed by [place] Mortensen> Date [place] Mortensen Cosigner Signature (If Indicated): Date CC: You Parks MD BASIC METABOLIC Collected: 01/16/2018 Status: F Source: [place]ARCUS PROFILE (BMP) 11:00 PM [facility] REPOSITORY TYPE CODE TESTS RESULT OUT OF [...] 9 GAP Performed By: #### L500.2500 #### [facility] [address] [place], [address] BEDSIDE GLUCOSE Collected: 01/16/2018 Status: F Source: [place] 10:41 PM [facility] REPOSITORY TYPE CODE TESTS RESULT OUT OF REFERENCE UNITS RANGE LAB L501.080 70-110 mg/dL High BEDSIDE GLU 249 Result Comment: MANAGEMENT OF PATIENT CARE PER NURSING PROTOCOL Performed By: #### L501.080 #### [facility] Point of Care [address] [place] [address] EMERGENCY DEPARTMENT Observed: 01/12/2018 Status: F Source: [place] SUMMARY 5:23 PM [facility] REPOSITORY [facility] Medical Records Department [address] [place] [address] Emergency Department Summary 01/12/18 1435 MR#: [id number] Acct: [id number] Name: CRYSTAL CRAMER Rep #: [id number] : 1955 62 From: Shreyas Mary MD [...] your Primary Care Provider. Call [facility] ([phone]) or report to the closest Emergency Room. Call 911 if necessary. 01/12/18 1723 <Electronically signed by Shreyas Mary MD> Date Shreyas Mary MD Cosigner Signature (If Indicated): Date CC: You Parks MD BASIC METABOLIC Collected: 01/12/2018 Status: F Source: [place]ARC[place] PROFILE (BMP) 3:20 PM [facility] REPOSITORY TYPE CODE TESTS RESULT OUT OF [...] GAP 6 Performed By: #### L500.2500 #### [facility] [address] [place], [place], [address] CBC W/DIFF, AUTOMATED Collected: 01/12/2018 Status: F Source: [place] 3:20 PM [facility] REPOSITORY TYPE CODE TESTS RESULT OUT OF [...] Lymph 2.16 Performed By: #### L100.0100 #### [facility] [address] [facility] [place], [address] EMERGENCY DEPARTMENT Observed: 01/12/2018 Status: F Source: O'[place]EN SUMMARY 1:50 AM [facility] REPOSITORY [facility] Medical Records Department [address] [place] [address] Emergency Department Summary 01/11/18 2327 MR#: [id number] Acct: [id number] Name: CRYSTAL CRAMER Rep #: [id number] : 1955 62 From: Sarah Khan DO [...] [] Gastroparesis This note was generated with StoreFront.netation software. It may contain incorrect words, spelling, [...] your Primary Care Provider. Call [facility] ([phone]) or report to the closest Emergency Room. Call 911 if necessary. 01/12/18 0150 <Electronically signed by Sarah Khan DO> Date Sarah Khan DO Cosigner Signature (If Indicated): Date CC: You Parks MD DISCHARGE INSTRUCTION Observed: 01/12/2018 Status: F Source: [place] 1:17 AM [facility] REPOSITORY [facility] Medical Records Department [address] [place] [address] Discharge Instruction 01/12/18 0117 MR#: [id number] Acct: [id number] Name: CRYSTAL CRAMER Rep #: [id number] : 1955 62 From: Sarah Khan DO [...] your Primary Care Provider. Call [facility] ([phone]) or report to the closest Emergency Room. Call 911 if necessary. 01/12/18 0117 <Electronically signed by Sarah Khan DO> Date Sarah Khan DO Cosigner Signature (If Indicated): Date CC: You Parks MD CBC W/DIFF, AUTOMATED Collected: 01/11/2018 Status: F Source: MARCUS 11:55 PM [facility] REPOSITORY TYPE CODE TESTS RESULT OUT OF [...] Lymph 2.88 Performed By: #### L100.0100 #### [facility] [address] [place], [address] COMPREHENSIVE METABOLIC Collected: 01/11/2018 Status: F Source: [facility] 11:55 PM [facility] REPOSITORY TYPE CODE TESTS RESULT OUT OF [...] GAP 8 Performed By: #### L500.4050 #### [facility] [address] [place], [address] EMERGENCY DEPARTMENT Observed: 01/09/2018 Status: F Source: O'[place]RIEN SUMMARY 7:15 PM [facility] REPOSITORY [facility] Medical Records Department [address] [place] [address] Emergency Department Summary 01/09/18 1708 MR#: [id number] Acct: [id number] Name: CRYSTAL CRAMER Rep #: [id number] : 1955 62 From: Bebeto Lugo DO [...] Patient states her primary care physician and director private music therapy agency are evaluating her for possible gastroparesis and/or [...] follow-up with her primary care physician and director private music therapy agency as scheduled. Patient understood and was agreeable with the plan. All questions were answered. Disposition: Discharged home Impression: Nausea and vomiting This note was generated with LiveExercise dictation software. It may contain incorrect words, [...] your Primary Care Provider. Call [facility] ([phone]) or report to the closest Emergency Room. Call 911 if necessary. 01/09/18 321 <Electronically signed by Bebeto Lugo DO> Date Bebeto Lugo DO Cosigner Signature (If Indicated): Date CC: You Parks MD URINALYSIS, COMPLETE Collected: 01/09/2018 Status: F Source: MARCUS 4:58 PM [facility] REPOSITORY Order Comment: How was Urine Obtained? 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 [place], [place], [address] CBC W/DIFF, AUTOMATED Collected: 01/09/2018 Status: F Source: [place] 4:17 PM [facility] REPOSITORY TYPE CODE TESTS RESULT OUT OF [...] Lymph 2.07 Performed By: #### L100.0100 #### [facility] [address] [place], [address] COMPREHENSIVE METABOLIC Collected: 01/09/2018 Status: F Source: [facility] 4:17 PM [facility] REPOSITORY TYPE CODE TESTS RESULT OUT OF [...] 9 Performed By: #### L500.4050, L501.2400 #### [facility] [address] [place], [address] AMYLASE Collected: 01/09/2018 Status: F Source: [place] 4:17 PM [facility] REPOSITORY TYPE CODE TESTS RESULT OUT OF RANGE REFERENCE UNITS LAB L501.2400 25-115 U/L Low KAMRON 13 Performed By: #### L500.4050, L501.2400 #### [facility] [address] [place], [address] EMERGENCY DEPARTMENT Observed: 01/08/2018 Status: F Source: [place] SUMMARY 8:27 AM [facility] REPOSITORY [facility] Medical Records Department [address] [place] [address] Emergency Department Summary 01/07/18 1223 MR#: [id number] Acct: [id number] Name: CRYSTAL CRAMER Rep #: [id number] : 1955 62 From: Mansoor Haywood DO [...] 2. Vomiting This note was generated with LiveExercise dictation software. It may contain incorrect words, [...] your Primary Care Provider. Call [facility] ([phone]) or report to the closest Emergency Room. Call 911 if necessary. 01/08/18 0827 <Electronically signed by Mansoor Haywood DO> Date Mansoor Haywood DO Mikaylaignmaggy Signature (If Indicated): Date CC: You Parks MD CBC W/DIFF, AUTOMATED Collected: 01/07/2018 Status: F Source: MARCUS 9:02 AM [facility] REPOSITORY TYPE CODE TESTS RESULT OUT OF [...] Lymph 2.49 Performed By: #### L100.0100 #### [facility] [address] [place], [address] COMPREHENSIVE METABOLIC Collected: 01/07/2018 Status: F Source: [place] [facility] 9:02 AM [facility] REPOSITORY TYPE CODE TESTS RESULT OUT OF [...] 9 Performed By: #### L500.4050, L501.2450 #### [facility] [address] [place], [address] LIPASE Collected: 01/07/2018 Status: F Source: [place] 9:02 AM [facility] REPOSITORY TYPE CODE TESTS RESULT OUT OF RANGE REFERENCE UNITS LAB L501.2450 73-393 U/L Normal LIPASE 123 Performed By: #### L500.4050, L501.2450 #### [facility] [address] [place], [address] CNCO Observed: 12/31/2017 Status: COMPLETED Source: [place] 2:00 PM [facility] REPOSITORY HNO ID: [id number] Author: Mammography Coordinator Service: (none) Author Type: Physician Type: Letter Filed: 01/01/2018 11:32 PM Note Text: December 31, 2017 PID: [id number] Crystal Cramer [address] [place] [address] Dear Ms. Cramer, We are pleased to [...] report will be kept on file at [facility] as part of your permanent medical record and are available for your continuing care. Thank you for allowing us to help in meeting your health care needs. Sincerely, Dr. Hallman Interpreting Radiologist [facility] (Normal over 40) PROGRESS Observed: 12/31/2017 Status: COMPLETED Source: [place] 12:48 PM [facility] REPOSITORY HNO ID: [id number] Author: Carole Perkins Service: (none) Author Type: [...] W IVCON Observed: 12/31/2017 Status: F Source: [place] 12:22 PM [facility] REPOSITORY * * *Final Report* * * DATE OF EXAM: Dec 31 2017 12:22PM [facility] 0530 - CT ABD/PEL W IVCON [...] may be contributing to the patient's symptoms. Net C Developer: ABRAM Transcribe Date/Time: Dec 31 2017 1:21P Dictated by : PELON GARRETT MD This examination was interpreted and the report reviewed and electronically signed by: PELON GARRETT MD on Dec 31 2017 1:32PM EST [id number] CT CHEST W IVCON Observed: 12/31/2017 Status: F Source: [place] 12:22 PM [facility] REPOSITORY * * *Final Report* * * DATE OF EXAM: Dec 31 2017 12:22PM [facility] 0539 - CT CHEST W IVCON [...] intra- abdominal fat or a lipomatous lesion. Net C Developer: ABRAM Transcribe Date/Time: Dec 31 2017 2:47P Dictated by : VERONICA IBARRA MD This examination was interpreted and the report reviewed and electronically signed by: VERONICA IBARRA MD on Dec 31 2017 3:07PM EST [id number] [place] CREATININE Collected: 12/31/2017 Status: F Source: [place] 10:09 AM [facility] [place] REPOSITORY TYPE CODE TESTS RESULT OUT OF REFERENCE UNITS RANGE LAB WCRET 0.7-1.4 mg/dL [place] Creatinine 1.2 LUCY SCREENING W RAMO Observed: 12/31/2017 Status: F Source: [place] 9:51 AM [facility] REPOSITORY * * *Final Report* * * DATE OF EXAM: Dec 31 2017 9:51AM [facility] 0582 - LUCY SCREENING W RAMO / PROCEDURE REASON: Other disorders of nervous system * * * * Physician Interpretation * * * * RESULT: #[id number] - LUCY SCREENING W RAMO BILATERAL DIGITAL SCREENING MAMMOGRAM TOMOSYNTHESIS WITH CAD: 12/31/2017 HISTORY: Other Disorders Of Nervous System\ Screening Mammogram - patient reports NO breast symptoms /Patient has signed release for outside images\[facility]. RESULT: TECHNIQUE: The study was acquired using [...] staff physician. Maral Kennedy M.D., jr,as/maylin:12/31/2017 14:00:45 Bulb Grower: Janneth Chris RT(R)(M), [place] [facility] letter sent: Normal over 40 Mammogram BI-RADS: 1 Negative Net C Developer: Maylin Transcribe Date/Time: Dec 31 2017 9:52A Dictated by: FABBY KENNEDY MD This examination was interpreted and the report reviewed and electronically signed by: MARAL HALLMAN MD on Dec 31 2017 2:00PM EST [id number] EMERGENCY DEPARTMENT Observed: 12/28/2017 Status: F Source: [place] SUMMARY 11:27 PM [facility] HOSPITAL REPOSITORY [facility] Medical Records Department [address] [place] [address] Emergency Department Summary 12/28/17 2325 MR#: [id number] Acct: [id number] Name: CRYSTAL CRAMER Rep #: [id number] : 1955 62 From: [place] Moffett MD [...] Vomiting Gastroparesis This note was generated with LiveExercise dictation software. It may contain incorrect words, [...] your Primary Care Provider. Call [facility] ([phone]) or report to the closest Emergency Room. Call 911 if necessary. 12/28/172326 <Electronically signed by Carlo Moffett MD> Date Carlo Moffett MD Cosigner Signature (If Indicated): Date CC: You Parks MD DISCHARGE INSTRUCTION Observed: 12/28/2017 Status: F Source: [place] 11:27 PM [facility] REPOSITORY [facility] Medical Records Department [address] [place] [address] Discharge Instruction 12/28/172326 MR#: [id number] Acct: [id number] Name: CRYSTAL CRAMER Rep #: [id number] : 1955 62 From: [place] Moffett MD [...] your Primary Care Provider. Call [facility] ([phone]) or report to the closest Emergency Room. Call 911 if necessary. 12/28/172326 <Electronically signed by Calro Moffett MD> Date Carlo Moffett MD Cosigner Signature (If Indicated): Date CC: You Parks MD CBC W/DIFF, AUTOMATED Collected: 12/28/2017 Status: F Source: [place] 10:10 PM [facility] REPOSITORY TYPE CODE TESTS RESULT OUT OF [...] Lymph 2.28 Performed By: #### L100.0100 #### [facility] [address] [place], [address] COMPREHENSIVE METABOLIC Collected: 12/28/2017 Status: F Source: [place] [facility] 10:10 PM [facility] REPOSITORY TYPE CODE TESTS RESULT OUT OF [...] 7 Performed By: #### L500.4050, L501.2450 #### [facility] [address] [place], [address] LIPASE Collected: 12/28/2017 Status: F Source: [place] 10:10 PM [facility] REPOSITORY TYPE CODE TESTS RESULT OUT OF RANGE REFERENCE UNITS LAB L501.2450 73-393 U/L Normal LIPASE 96 Performed By: #### L500.4050, L501.2450 #### [facility] [address] [place], [address] PROGRESS Observed: 12/18/2017 Status: COMPLETED Source: [place] 10:32 AM [facility] [place] REPOSITORY HNO ID: [id number] Author: Mukul Steven Service: (none) Author Type: [...] no edema RESPIRATORY: No dyspnea : negative CASHIER: negative The remainder of the review of [...] 12/18/2017 CNOV Observed: 12/18/2017 Status: COMPLETED Source: [place] 10:10 AM [facility] REPOSITORY Office Visit (GASTMN) CRYSTAL CRAMER ([id number]) 1955 F Date Time Provider Department 12/18/17 [...] no edema RESPIRATORY: No dyspnea : negative CASHIER: negative The remainder of the review of [...] IVCON Mukul Steven 12/18/2017 Referring Provider: YOU PARKS [[id number]] Allergies As of Date: 12/18/2017 Noted Allergy [...] syndrome [G98.8] Order(s):CREATININE BLD [SQCRET] Order #: [id number] FUTURE LUCY SCREENING [7672154] Order #: [id number] FUTURE CT ABD/PEL W IVCON [0501213] Order #: [id number] FUTURE CT CHEST W IVCON [[id number]] Order #: [id number] FUTURE iv contrast (radiology procedure)CT Chest ABD/PEL-Inject, [...] EMERGENCY DEPARTMENT Observed: 12/17/2017 Status: F Source: [place] SUMMARY 2:25 AM [facility] Medical Records Department [address] [place] [address] Emergency Department Summary 12/16/17 2155 MR#: [id number] Acct: [id number] Name: CRYSTAL CRAMER Rep #: [id number] : 1955 62 From: Mukul Morris MD [...] 1. Gastroparesis This note was generated with LiveExercise dictation software. It may contain incorrect words, [...] your Primary Care Provider. Call [facility] ([phone]) or report to the closest Emergency Room. Call 911 if necessary. 12/17/17 0225 <Electronically signed by Mukul Morris MD> Date Mukul Morris MD Cosigner Signature (If Indicated): Date CC: You Parks MD CBC W/DIFF, AUTOMATED Collected: 12/16/2017 Status: F Source: [place] 7:10 PM [facility] REPOSITORY TYPE CODE TESTS RESULT OUT OF [...] Lymph 2.32 Performed By: #### L100.0100 #### [facility] [address] [place], [address] BASIC METABOLIC Collected: 12/16/2017 Status: F Source: [place] PROFILE (BMP) 7:10 PM [facility] REPOSITORY TYPE CODE TESTS RESULT OUT OF [...] GAP 4 Performed By: #### L500.2500 #### [facility] [address] [facility] [place], [address] EMERGENCY DEPARTMENT Observed: 12/11/2017 Status: F Source: [place] SUMMARY 7:53 PM [facility] REPOSITORY [facility] Medical Records Department [address] [place] [address] Emergency Department Summary 12/11/171951 MR#: [id number] Acct: [id number] Name: CRYSTAL CRAMER Rep #: [id number] : 1955 62 From: Jose Alberto Umana [...] your Primary Care Provider. Call [facility] ([phone]) or report to the closest Emergency Room. Call 911 if necessary. 12/11/171952 <Electronically signed by Jose Alberto Umana MD> Date Jose Alberto Umana MD Cosigner Signature (If Indicated): Date CC: You Parks MD EMERGENCY DEPARTMENT Observed: 12/11/2017 Status: F Source: [place] SUMMARY 7:49 PM [facility] REPOSITORY [facility] Medical Records Department [address] [place] [address] Emergency Department Summary 12/11/171944 MR#: [id number] Acct: [id number] Name: CRYSTAL CRAMER Rep #: [id number] : 1955 62 From: Jose Alberto Umana [...] Renal insufficiency This note was generated with LiveExercise dictation software. It may contain incorrect words, [...] your Primary Care Provider. Call [facility] ([phone]) or report to the closest Emergency Room. Call 911 if necessary. 12/11/171948 <Electronically signed by Jose Alberto Umana MD> Date Jose Alberto Umana MD Cosigner Signature (If Indicated): Date CC: You Parks MD BASIC METABOLIC Collected: 12/11/2017 Status: F Source: [place] PROFILE (BMP) 4:15 PM [facility] REPOSITORY TYPE CODE TESTS RESULT OUT OF [...] GAP 7 Performed By: #### L500.2500 #### [facility] [address] [facility] [place], [address] 12 LEAD ELECTROCARDIOGRAM Observed: 12/09/2017 Status: F Source: [place] 3:16 PM [facility] REPOSITORY [facility] Cardiovascular Services [address] [place] [address] 12 Lead EKG 12/05/172009 MR#: [id number] Acct: [id number] Name: CRYSTAL CRAMER Rep #: [id number] : 1955 62 From: Son Ellison MD [...] ECG Confirmed by JOSE MANUEL CURRY, SON ([id number]), production editor MAIKEL MULLEN ([id number]) on 12/09/2017 3:15:36 PM Referred By: BENI Confirmed By:SON ELLISON MD 12/09/17 4325 Date Son Ellison MD CC: MD Mamadou Avelar; YOU PARKS Signed EMERGENCY DEPARTMENT Observed: 12/06/2017 Status: F Source: [place] SUMMARY 12:54 AM [facility] REPOSITORY [facility] Medical Records Department [address] [place] [address] Emergency Department Summary 12/05/172055 MR#: [id number] Acct: [id number] Name: CRYSTAL CRAMER Rep #: [id number] : 1955 62 From: Hailey Avelar MD [...] and gastroparesis she has no history of [place] PE or DVT, she indicates her shortness [...] she is under the care of a director private music therapy agency Physical Examination: [] She is in no [...] bland fluid E diet, follow-up with her director private music therapy agency for her gastroparesis and her physicians for other conditions and return for change in symptoms Treatment Plan: [] Disposition: [] Home stable declined admission Impression: [] Nausea suspect related to gastroparesis diabetes, nonspecific shortness of breath for weeks This note was generated with LiveExercise dictation software. It may contain incorrect words, [...] your Primary Care Provider. Call [facility] ([phone]) or report to the closest Emergency Room. Call 911 if necessary. 12/06/17 0054 <Electronically signed by Hailey Avelar MD> Date Hailey Avelar MD Cosigner Signature (If Indicated): Date CC: YOU PARKS DISCHARGE INSTRUCTION Observed: 12/05/2017 Status: F Source: [place] 11:07 PM [facility] REPOSITORY [facility] Medical Records Department [address] [place] [address] Discharge Instruction 12/05/17 2306 MR#: [id number] Acct: [id number] Name: CRYSTAL CRAMER Rep #: [id number] : 1955 62 From: Hailey Avelar MD [...] your Primary Care Provider. Call [facility] ([phone]) or report to the closest Emergency Room. Call 911 if necessary. 12/05/172306 <Electronically signed by Hailey Avelar MD> Date Hailey Avelar MD Cosigner Signature (If Indicated): Date CC: YOU PARKS DISCHARGE INSTRUCTION Observed: 12/05/2017 Status: F Source: [place] 10:00 PM [facility] REPOSITORY [facility] Medical Records Department [address] [place] [address] Discharge Instruction 12/05/17 2200 MR#: [id number] Acct: [id number] Name: CRYSTAL CRAMER Rep #: [id number] : 1955 62 From: Hailey Avelar MD [...] your Primary Care Provider. Call [facility] ([phone]) or report to the closest Emergency Room. Call 911 if necessary. 12/05/170 <Electronically signed by Hailey Avelar MD> Date Hailey Avelar MD Cosigner Signature (If Indicated): Date CC: YOU PARKS CBC W/DIFF, AUTOMATED Collected: 12/05/2017 Status: F Source: [place] 8:15 PM [facility] REPOSITORY TYPE CODE TESTS RESULT OUT OF [...] Lymph 2.39 Performed By: #### L100.0100 #### [facility] [address] [place], [place], [address] BASIC METABOLIC Collected: 12/05/2017 Status: F Source: [place] PROFILE (BMP) 8:15 PM [facility] REPOSITORY Order Comment: 'TROP' Serial specimen #1, [...] 7 Performed By: #### L500.2500, L501.4010 #### [facility] [address] [place], [address] TROPONIN-I Collected: 12/05/2017 Status: F Source: [place] 8:15 PM [facility] REPOSITORY Order Comment: 'TROP' Serial specimen #1, #2, #3, or #4: 1 TYPE CODE TESTS RESULT OUT OF RANGE REFERENCE UNITS LAB L501.4010 <0.06 ng/mL Normal < 0.02 TROPONIN-I Result Comment: TROPONIN-I EXPECTED VALUES <0.05 NEGATIVE 0.06 - 0.59 AT RISK OF NV > OR = 0.60 SUGGEST NV Performed By: #### L500.2500, L501.4010 #### [facility] [address] [place], [place], [address] Observed: 12/05/2017 Status: F Source: [place] INFLUENZA A+B (RAPID 8:[address] [facility]) REPOSITORY FLU A/B Rapid Negative test results should be confirmed by culture. Order Rapid Viral Culture for Influenzae A+B (021531) if clinically indicated. Influenza Ag, Direct Presumptive NEGATIVE for Influenza A/B Antigen (See Note) Performed By: #### M101.0101 #### [facility] [address] [place], [place], [address] BNP,B-TYPE NATRIURETIC Collected: 12/05/2017 Status: F Source: [place] PEPTIDE 8:15 PM [facility] REPOSITORY TYPE CODE TESTS RESULT OUT OF RANGE REFERENCE UNITS LAB L503.6620 0-100 pg/mL Normal B-TYPE 20.4 L[place]ON PEP Performed By: #### L503.6620 #### [facility] [address] [place], [address] D-DIMER QUANTITATIVE Collected: 12/05/2017 Status: F Source: [place] (DVT/PE) 8:15 PM [facility] REPOSITORY TYPE CODE TESTS RESULT OUT OF RANGE REFERENCE UNITS LAB L300.8000 0.27-0.49 FEU/ug/m Normal D-DIMER 0.45 QUANT Result Comment: NORMAL D-Dimer level (<0.50) indicates no DVT or PE. Performed By: #### L300.8000 #### [facility] [address] [place], [address] CHEST 1 VIEW Observed: 12/05/2017 Status: F Source: [place] (PORTABLE) 7:57 PM [facility] REPOSITORY [facility] Imaging Services [address] [place] [address] Chest 1 View (Portable) MR#: [id number] Acct: [id number] Name: BELACRYSTAL L Rep #: [id number] : 1955 F 62 From: Jacob Amaral DO PCP: YOU PARKS Status: REG ER Study: Chest 1 View (Portable) Date of Exam: 12/05/17 Exam# [id number] Ordering Dr: Hailey Avelar MD STUDY: X-RAY [...] , CC: MD Mamadou Avelar; YOU PARKS Net C Developer: Signed EMERGENCY DEPARTMENT Observed: 11/24/2017 Status: F Source: [place] SUMMARY 11:10 PM [facility] REPOSITORY [facility] Medical Records Department [address] [place] [address] Emergency Department Summary 11/24/17 2159 MR#: [id number] Acct: [id number] Name: CRYSTAL CRAMER Rep #: [id number] : 1955 62 From: Sarah Khan DO [...] vomiting Gastroparesis This note was generated with [employer] dictation software. It may contain incorrect words, [...] your Primary Care Provider. Call [facility] ([phone]) or report to the closest Emergency Room. Call 911 if necessary. 11/24/17 2310 <Electronically signed by Sarah Khan DO> Date Sarah Khan DO Cosigner Signature (If Indicated): Date CC: YOU PARKS DISCHARGE INSTRUCTION Observed: 11/24/2017 Status: F Source: MARCUS 10:02 PM [facility] REPOSITORY [facility] Medical Records Department [address] [place] [address] Discharge Instruction 11/24/172200 MR#: [id number] Acct: [id number] Name: CRYSTAL CRAMER Marissa Rep #: [id number] : 1955 62 From: Sarah Khan DO [...] your Primary Care Provider. Call [facility] ([phone]) or report to the closest Emergency Room. Call 911 if necessary. 11/24/172201 <Electronically signed by Sarah Khan DO> Date Sarah Khan DO Cosigner Signature (If Indicated): Date CC: YOU PARKS BASIC METABOLIC Collected: 11/24/2017 Status: F Source: M[facility]US PROFILE ([facility]) 9:04 PM [facility] REPOSITORY TYPE CODE TESTS RESULT OUT OF [...] GAP 9 Performed By: #### L500.2500 #### [facility] [address] [place], [place], [address] .GFR Collected: 11/21/2017 Status: F Source: [facility] 10:01 AM [facility] REPOSITORY TYPE CODE TESTS RESULT OUT OF REFERENCE UNITS RANGE LAB GFRAA(LOINC ml/min/1.73 ) sqm GFR 65 [place] Result Comment: GFR Population mean for , [...] By: #### GFR, CMP, LIPID, TSH #### [address] [address] CMP Collected: 11/21/2017 Status: F Source: [facility] 10:01 AM [facility] REPOSITORY TYPE CODE TESTS RESULT OUT OF [...] By: #### GFR, CMP, LIPID, TSH #### [address] [address] LIPID Collected: 11/21/2017 Status: F Source: [facility] 10:01 [facility] REPOSITORY TYPE CODE TESTS RESULT OUT OF [...] #### GFR, CMP, LIPID, TSH #### Maxime [address] [address] TSH Collected: 11/21/2017 Status: F Source: [facility] 10:01 [facility] REPOSITORY TYPE CODE TESTS RESULT OUT OF RANGE REFERENCE UNITS LAB TSH(LOINC) 0.27-4.20 mcIU/mL TSH 2.38 Performed By: #### GFR, CMP, LIPID, TSH #### [address] [address] TOXSC Collected: 11/06/2017 Status: F Source: [facility] 1:31 PM [facility] REPOSITORY TYPE CODE TESTS RESULT OUT OF REFERENCE UNITS RANGE LAB UTCA(LOINC ) U TCA (AO) Negative LAB AOUBAR(TENA NC) U Stephanie (AO) Negative LAB AOUMETH(LO INC) U Methadone (AO) Negative LAB AOUBNZ(TENA NC) U Zion (AO) Negative LAB AOUCAN(TENA NC) U Cannab (AO) Negative LAB CD:[id number] 71(LOINC) Urine Opiates (AO) Positive LAB AOUAMP(TENA NC) U Ampheta (AO) Negative LAB AOUCOC(TENA NC) U Cocaine (AO) Negative LAB AOUPCP(TENA NC) U PCP (AO) Negative LAB CD:[id number] 03(LOINC) QC TOXSC Valid Performed By: #### TOXSC #### [address] [address] PROGRESS Observed: 10/22/2017 Status: COMPLETED Source: [place] 2:21 PM [facility] REPOSITORY O ID: [id number] Author: Cele (Rn) ALMA Vargas Service: (none) Author Type: Registered Nurse Type: Progress Notes Filed: 10/22/2017 2:24 PM Note Text: Smartll Test Report - [id number] Test start date: 10/11/2017 9:48 AM Interpretation date: 10/22/2017 Ordering physician: Mukul Steven DO Patient Information Name: Crystal Cramer ID: [id number] date: 1955 Height ft. in.: 5' 6 [...] _10/22/17 HOSP Observed: 10/22/2017 Status: COMPLETED Source: [place] 12:00 AM [facility] REPOSITORY Patient Update (GASTMN) CRYSTAL CRAMER Marissa ([id number]) 1955 F Date Time Provider Department 10/22/17 CELE VARGAS) [facility] During your visit today, we recorded the following information about you: Cele Vargas RN, RN 10/22/2017 2:24 PM Signed [facility] Test Report - [id number] Test start date: 10/11/2017 9:48 AM Interpretation date: 10/22/2017 Ordering physician: Mukul Steven DO Patient Information Name: Bela Crystal L. ID: [id number] date: 1955 Height ft. in.: 5' 6ANDquot; [...] Encounter Status:Closed by [facility] Observed: 10/22/2017 Status: COMPLETED Source: [place] 12:00 AM [facility] REPOSITORY Telephone (GASTLA) CRYSTAL CRAMER ([id number]) 1955 F Date Time Provider Department 10/22/17 [...] 10/23/17 PROGRESS Observed: 10/11/2017 Status: COMPLETED Source: [place] 10:13 AM [facility] REPOSITORY HNO ID: [id number] Author: Cele NguyenRn) ALMA Vargas Service: (none) Author Type: Registered Nurse Type: Progress Notes Filed: 10/11/2017 10:14 AM Note Text: Referring MD: ?Mukul Steven, DO Dx: ?gastroparesis Date of SmartPill Procedure: ?10/11/2017 ?SmartPill ingested without difficulty at 10:00am. ?Discharge instructions completed and given to patient. Return of Equipment: ?VEENA Vargas, ALMA Capsule Endoscopy Nurse YONATAN Observed: 10/08/2017 Status: COMPLETED Source: [place] 12:00 AM [facility] REPOSITORY Telephone (GASTMN) CRYSTAL CRAMER ([id number]) 1955 F Date Time Provider Department 10/08/17 MUKUL STEVEN [facility] During your visit today, we recorded the following information about you: Manuel Meza RN, RN 10/08/2017 4:16 PM Signed Contacted [employer] [phone] (option 1 and then option [phone]) to obtain a copy of patient's denial letter for IVIG. They are to fax to the office today. Manuel Meza RN, RN 10/08/2017 5:19 PM Signed Received copy of denial letter from [employer] 10/08/17 and forwarded to Erika at [facility]. Allergies As of Date: 10/08/2017 Noted [...] 10/08/17 YONATAN Observed: 09/12/2017 Status: COMPLETED Source: [place] 12:00 AM [facility] REPOSITORY Telephone (GASTMN) CRYSTAL CRAMER ([id number]) 1955 F Date Time Provider Department 09/12/17 [...] 09/12/17 LIPID Collected: 08/21/2017 Status: F Source: [facility] 10:00 AM [facility] REPOSITORY TYPE CODE TESTS RESULT OUT OF [...] high risk Performed By: #### GFR, LIPID, CMP, TSH #### Maxime [address] [place], [place] [address] CMP Collected: 08/21/2017 Status: F Source: [place] [employer] 10:00 AM [facility] REPOSITORY TYPE CODE TESTS RESULT OUT OF [...] ALT/SGPT 33 Performed By: #### GFR, LIPID, CMP, TSH #### Max[place] [address] [place], [place] [address] .GFR Collected: 08/21/2017 Status: F Source: [place] [employer] 10:00 AM [facility] REPOSITORY TYPE CODE TESTS RESULT OUT OF REFERENCE UNITS RANGE LAB GFRAA(LOINC ml/min/1.73 ) sqm GFR 75 [place] Result Comment: GFR Population mean for , [...] square meters Performed By: #### GFR, LIPID, CMP, TSH #### [address] [address] TSH Collected: 08/21/2017 Status: F Source: [facility] 10:00 AM [facility] REPOSITORY TYPE CODE TESTS RESULT OUT OF RANGE REFERENCE UNITS LAB TSH(LOINC) 0.27-4.20 mcIU/mL High TSH 8.22 Result Comment: Above normal(expected)range Performed By: #### GFR, LIPID, CMP, TSH #### [address] [address] ALLERGIES ALLERGIES DATE TYPE / CODE NAME / CODE REACTION SEVERITY SOURCE Drug cyclobenzaprine Rash Unknown [place] 8 Allergy/101394313( HCl/H649302356(RXNO [facility]) RM) Hospital Repository Drug ketorolac Chest Unknown [place] 8 Allergy/485681090( tromethamine/A95106 tightness [facility]) 3539(RXNORM) Hospital Repository Drug ciprofloxacin Shortness of Unknown [facility] 8 Allergy/890116149( HCl/M263844361(RXNO breath [facility]) ) Hospital Repository Drug valacyclovir Other Unknown [facility] 8 Allergy/332325135( HCl/L377571624(RXNO [facility]) ) Hospital Repository Drug sulfamethoxazole/F0 Itching Unknown [facility] 8 Allergy/166712418( 85851276(RXNORM) [facility] SN[facility]) Hospital Repository Drug trimethoprim/B97469 Itching Unknown [place] 8 Allergy/083522365( 2873(RXNORM) [facility] SN[facility]) Hospital Repository Drug ciprofloxacin/F0060 Shortness of Unknown [place] 8 Allergy/772069225( [address](RXNORM) breath [facility]) Hospital Repository Drug metformin/C46270867 Other Unknown [facility] 8 Allergy/243267282( 4(RXNORM) [facility] SN[facility]) Hospital Repository Drug cyclobenzaprine/F00 Rash Unknown [place] 8 Allergy/175149438( 3211645(RXNORM) [facility]) Hospital Repository DRUG/197425811(SNO SULFAMETHOXAZOLE-TR HIVES [place] [address]) [facility] [place] [facility] DRUG/705470091(SNO SULFAMETHOXAZOLE-TR HIVES [place] [address]) [facility] [place] [facility] DRUG METFORMIN OTHER: SEE C [place] INGREDI/964335087( Clinic Main SNOMED CT) [place] [facility] DRUG CIPROFLOXACIN RASH Med [place] INGREDI/060873707( Clinic Main SNOMED CT) [place] [facility] DRUG CYCLOBENZAPRINE RASH Med [place] INGREDI/379212917( Clinic Main SNOMED CT) [place] [facility] DRUG CIPROFLOXACIN UNKNOWN [place] INGREDI/123611744( Clinic Main SNOMED CT) [place] [facility] DRUG CYCLOBENZAPRINE UNKNOWN [place] INGREDI/205762939( Clinic Main SNOMED CT) [place] [facility] Miscellaneous OTHER [place] 7 Allergy/552140360( [facility] Main SNOMED CT) [place] [facility] DRUG KETOROLAC OTHER: SEE C [place] 6 INGREDI/625993724( [facility] Main SNOMED CT) [place] [facility] DRUG KETOROLAC [place] 6 INGREDI/231429858( [facility] Main SNOMED CT) [place] [facility] ENCOUNTERS ENCOUNTERS ADMIT/DISCHARGE ACCOUNT NUMBER ADMITTING ENCOUNTER LOCATION SOURCE CLASS 07/23/2018/07/23/20 [id number] Ambulatory [address] Repository 07/20/2018/07/20/20 [id number] Emergency [address] ding:ED Repository 07/19/2018/07/19/20 [id number] Emergency [address] ding:ED Repository 07/19/2018/07/19/20 [id number] Emergency [address] ding:ED Repository 07/09/2018/07/10/20 [id number] MIGNON CURRY, Ambulatory BBuilding:MS Maxime Recinos [facility] Repository 07/04/2018 [id number] Ambulatory BMSBuilding: [facility] Repository 07/04/2018 [id number] Ambulatory [facility] ding:[facility] Repository 06/26/2018/06/26/20 [id number] Ambulatory BMSBuilding: [facility] 18 [facility] Repository 06/25/2018 [id number] Ambulatory BMSBuilding: [facility] Repository 06/22/2018/06/22/20 [id number] Emergency BBuilding:ER Maxime [address] [place] [address] Repository 05/24/2018/05/24/20 [id number] Emergency BBuilding:ER Maxime [address] [place] [address] Repository 05/23/2018/05/23/20 [id number] Emergency [address] ding:ED Repository 05/23/2018/05/26/20 [id number] Ambulatory [address] Repository 05/20/2018/05/20/20 [id number] Ambulatory MAXIME [facility] [address] [place] [address] ding:OLAB [facility] Repository 05/16/2018 [id number] Ambulatory [facility] ding:MTLAB Repository 05/14/2018/05/15/20 [id number] MIGNON CURRY, Inpatient BBuilding:MS Maxime GAMBLE W Encounter URRoom: Health 0230Bed: A [facility] Repository 05/13/2018/05/17/20 [id number] Ambulatory [address] ding:DROP [facility] Repository 05/06/2018/05/06/20 [id number] Emergency BBuilding:ER Maxime 18 [facility] Repository 04/17/2018/04/18/20 [id number] Emergency [address] ding:ED Repository 04/10/2018 [id number] Ambulatory BMSBuilding: [place] BMS.[facility] Repository 04/09/2018/04/09/20 [id number] Emergency [address] ding:ED Repository 04/06/2018/04/06/20 [id number] Emergency [address] ding:ED Repository 03/24/2018 [id number] Ambulatory [facility] ding:HPRAD Repository 03/24/2018/03/24/20 [id number] Ambulatory BMSBuilding: [place] 18 [facility] Repository 03/12/2018/03/12/20 [id number] Emergency [address] ding:ED Repository 03/09/2018/03/11/20 [id number] Jose Oseguera Inpatient [place] 18 Encounter [facility] ding:RP1Khrl Repository : XS354Alw: 1 03/09/2018 [id number] Jose Oseguera Ambulatory BMSBuilding: [place] BMS.[facility] Repository 03/09/2018 [id number] Jose Oseguera Ambulatory BMSBuilding: [place] BMS.[facility] Repository 03/09/2018 [id number] Jose Oseguera Ambulatory BMSBuilding: [place] BMS.[facility] Repository 03/04/2018/03/04/20 [id number] Emergency [facility] 18 [facility] ding:ED Repository 02/26/2018/02/27/20 [id number] Emergency [place] 18 [facility] ding:ED Repository 02/22/2018/02/23/20 [id number] Emergency [place] 18 [facility] ding:ED Repository 02/19/2018/02/20/20 [id number] Emergency [place] 18 [facility] ding:ED Repository 02/05/2018/02/06/20 [id number] Emergency Marcus [address] ding:ED Repository 01/28/2018/01/29/20 [id number] Emergency [place] ding:ED Repository 01/22/2018/01/23/20 [id number] Emergency [facility] ding:ED Repository 01/16/2018/01/18/20 [id number] Emergency [place] ding:ED Repository 01/12/2018/01/13/20 [id number] Emergency [place] ding:ED Repository 01/11/2018/01/13/20 [id number] Emergency [place] [facility] ding:ED Repository 01/09/2018/01/10/20 [id number] Emergency [place] 18 [facility] ding:ED Repository 01/07/2018/01/08/20 [id number] Emergency [facility] [address] [place] [address] ding:ED Repository 12/31/2017/01/01/20 [id number] Ambulatory [address] Repository 12/31/2017/01/01/20 [id number] Ambulatory [address] Repository 12/31/2017/01/01/20 [id number] Ambulatory [address] Repository 12/31/2017 [id number] Ambulatory [facility] Repository 12/31/2017/01/02/20 [id number] Ambulatory [address] Repository 12/28/2017/12/29/19 [id number] Emergency [facility] ding:ED Repository 12/20/2017 [id number] Ambulatory BBuilding:RA [facility] Repository 12/18/2017/12/19/19 [id number] Ambulatory [address] Repository 12/16/2017/12/17/19 [id number] Emergency [place] ding:ED Repository 12/12/2017/12/13/19 [id number] Ambulatory [address] ding:RAD [facility] Repository 12/11/2017/12/12/19 [id number] Emergency [address] ding:ED Repository 12/05/2017/12/06/19 [id number] Emergency [address] ding:ED Repository 11/24/2017/11/25/19 [id number] Emergency [address] ding:ED Repository 11/21/2017/11/26/19 [id number] Ambulatory [address] ding:DROP [facility] Repository 11/06/2017/11/11/19 [id number] Ambulatory [address] ding:DROP [facility] Repository 10/22/2017/10/23/19 [id number] Ambulatory [address] Repository 10/11/2017/10/11/19 [id number] Ambulatory [address] Repository 08/21/2017/08/25/19 [id number] Ambulatory [address] ding:DROP [facility] Repository PAYERS PAYERS ENCOUNTER GUARANTOR PAYER SUBSCRIBER SOURCE 07/20/2018 CRYSTAL Ann Primary CRYSTAL [id number] Insurance:DARIAN NOEL: Community [place] [employer] PPOPolic [id number] [place], [place] Number: Repository [address]Tef: 234 [id number] [phone] (HP) Date:8114-23-81RJ [facility] [id number] [place] [address]HL: 07/20/2018 Secondary NOT GIVENUNK [facility] Insurance:SELF PAY [facility] Number: Effective Repository Date:2018-07-20 07/19/2018 CRYSTAL L Primary CRYSTAL L [place] [id number] Insurance:ANTHEM WINESDOB: Community [place] [employer] PPOPolicy [id number] [place], [place] Number: Repository [address]Evh: (234) [id number] [phone] () Date:2860-41-62XE[address] [address]BP: 07/19/2018 Secondary NOT GIVENUNK [place] Insurance:SELF PAY [facility] Number: Effective Repository Date:2018-07-19 07/19/2018 CRYSTAL L Primary CRYSTAL L [place] [id number] Insurance:ANTHEM WINESDOB: Community [place] [employer] PPOPolicy [id number] Number: Repository [address]Zgq: (234) [id number] [phone] () Date:[id number] [address]WR: 07/19/2018 Secondary NOT GIVENUNK [place] Insurance:SELF PAY [facility] Number: Effective Repository Date:2018-07-19 07/09/2018 CRYSTAL L Primary CRYSTAL L [facility] WINESDOB: Insurance:ANTHEM WINESDOB: [facility] [id number] [place] [address] Number: [place], [place] [id number] [place], [place] [address]Csu: (234) Date:2018-07-09 [address]Jur: [id number] [phone] ()Tel: (565) Name:O Box () () [id number], [place] 000-0000 () [address]ZA: 07/04/2018 CRYSTAL L Primary CRYSTAL L [place] [id number] Insurance:ANTHEM WINESDOB: Community [place] [employer] PPOPolicy [id number] [place] Number: Repository [address]Vgr: (234) [id number] [phone] () Date:1303-63-48LV [address] [address]QP: 07/04/2018 Secondary NOT GIVENUNK [place] Insurance:SELF PAY [facility] Number: Effective Repository Date:2018-07-04 07/04/2018 CRYSTAL L Primary CRYSTAL L [facility] [id number] Insurance:ANTHEM WINESDOB: Community [place] [employer] PPOPolicy [id number] [place] Number: Repository [address]Kun: (234) [id number] [phone] (HP) Date:0127-92-63[address] [address]PB: 07/04/2018 Secondary NOT GIVENUNK [place] Insurance:SELF PAY [facility] Number: Effective Repository Date:2018-06-26 06/26/2018 CRYSTAL L Primary CRYSTAL L [place] [id number] Insurance:ANTHEM WINESDOB: Community [place] [employer] PPOPolicy [id number] [place], [place] Number: Repository [address]Ndm: (234) [id number] [phone] () Date:0644-56-87ZJ [address] [address]AU: 06/26/2018 Secondary NOT GIVENUNK [place] Insurance:SELF PAY [facility] Number: Effective Repository Date:2018-06-25 06/25/2018 CRYSTAL L Primary CRYSTAL L [place] [id number] Insurance:ANTHEM WINESDOB: Community [place] [employer] PPOPolicy [id number] [place], [place] Number: Repository [address]Vhn: (234) [id number] [phone] (HP) Date:7542-53-58[address] [address]AG: 06/25/2018 Secondary NOT GIVENUNK [place] Insurance:SELF PAY [facility] Number: Effective Repository Date:2018-06-25 06/22/2018 CRYSTAL L Primary [facility]STAL [facility] Insurance:DARIAN PETERSONSDOB: [facility] [id number] Repository CRISTINA Number: CRISTINA [place] [id number] [facility], [place] [address]Gld: (234) Date:2018-06-22 017[address]Msa: [id number] [phone] (HP)Tel: (999) Name:N[address] Box (HP) (WP) [id number], [place] 000[address]0000 (WP) [address]ZV: 05/24/2018 CRYSTAL L Primary CRYSTAL L [facility] WINESDOB: Insurance:DARIAN PETERSONSDOB: [facility] [id number] Repository CRISTINA Number: CRISTINA [place]EN[place] [id number] [place], [place] [address]Ltl: (234) Date:2018-05-24 424[address]Imi: [id number] [phone] (HP)Tel: (999) Name:[address] Box (HP) (WP) [phone], [place] 000[address] (WP) [address]ET: 05/23/2018 CRYSTAL L Primary CRYSTAL L [place] [id number] Insurance:DARIAN WINESDOB: Community [place] [employer] PPOPolicy [id number] [place], [place] Number: Repository [address]Ahe: (234) [id number] [phone] (HP) Date:2992-81-35[address]MWHDSQC, [place] [address]CT: 05/23/2018 Secondary NOT GIVENUNK [place] Insurance:SELF PAY [facility] Number: Effective Repository Date:2018-05-23 05/20/2018 CRYSTAL L Primary CRYSTAL L [facility] WINESDOB: Insurance:NAYELIEM WINESDOB: [facility] [id number] Repository [place] Number: [place] [id number] [facility] [place] [address]Izp: (234) Date:2018-05-20 [address]75[address]Ylc: [id number] [phone] (HP)Tel: (999) Name:[address] Box (HP) (WP) [id number], [place] 000[address] (WP) [address]OM: 05/16/2018 CRYSTAL L Primary CR[place]STAL [place] [id number] Insurance:DARIAN PETERSONSDOB: Community [place] [employer] PPOPolicy [id number] [place], [place] Number: Repository [address]Gmb: (234) [id number] [phone] (HP) Date:0906-45-67MX [address] [place] [address] [place] [address]UG: 05/16/2018 Secondary NOT GIVENUNK [place] Insurance:SELF PAY [facility] Number: Effective Repository Date:2018-05-16 05/14/2018 CRYSTAL L Primary CRYSTAL L [facility] WINESDOB: Insurance:NAYELIEM WINESDOB: [facility] [id number] Repository [place] Number: CRISTINA MARREROWEST [place], [place] [id number] [place], [place] [address]Gxh: (234) Date:2018-05-14 [address]34[address]Dae: [id number] [phone] (HP)Tel: (999) Name:[address] Box (HP) (WP) [phone], [place] 000[address]0000 (WP) [address]RK: 05/14/2018 Secondary CRYSTAL L [facility] Insurance:MEDICARE WINESDOB: [facility] Number: [id number] Repository [id number] [place] Date:2018-05-14 - [place] [id number] [address]Cey: (234) Name:MMail Code [phone] [address] (HP)Tel: (000) [id number] [place], [place] 000[address] (WP) [address]CD: 05/13/2018 CRYSTAL L Primary CRYSTAL L [facility] WINESDOB: Insurance:[facility] WINESDOB: [facility] [id number] Repository [place] Number: CRISTINA [place]ARRERO [place] [id number] [facility] [place] [address]Ndw: (234) Date:2018-05-13 14359Hae: [id number] [phone] (HP)Tel: (999) Name:NPO Box (HP) (WP) [id number], [place] 000-0000 (WP) 37798TH: 05/06/2018 CRYSTAL L Primary CRYSTAL [facility] WINESDOB: Insurance:[facility] WINESDOB: [facility] [id number] Repository [place] Number: CRISTINA [place]ARRERO [place] [id number] [facility] [place] [address]Odj: (234) Date:2018-05-06 94668Jwm: 3505-59-12Aaju [phone] (HP)Tel: (999) Name:NPO Box (HP) (WP) [phone], [place] 000-0000 (WP) 15160IR: 04/17/2018 CRYSTAL L Primary CRYSTAL L [place] [id number] Insurance:ANTHEM WINESDOB: Community [place] [facility] [id number] [place] Number[place] Repository [address]Rpm: (234) [id number] [phone] () Date:5776-24-21YY [address]HIHFBBK, [place] [address]KG: 04/17/2018 Secondary NOT GIVENUNK [place] Insurance:SELF PAY [facility] Number: Effective Repository Date:2018-04-17 04/10/2018 Crystal L Primary Crystal L Marcus [id number] Insurance:ANTHEM WinesDOB: Community [employer] PPOPolicy [id number] [place] Number: Repository [address]Wum: (234) [id number] [phone] () Date:6133-21-32Q[address]ADGSGFU, [place] [address]IU: 04/10/2018 Secondary NOT GIVENUNK [place] Insurance:SELF PAY [facility] Number: Effective Repository Date:2018-03-11 04/09/2018 CRYSTAL L Primary CRYSTAL L Marcus [id number] Insurance:ANTHEM WINESDOB: Community [employer] [employer] PP[facility]icy [id number] [place] Number[facility] Repository [address]Ysj: (234) [id number] [phone] () Date:0825-17-70YE [address]ELXISPZ [place] [address]HB: 04/09/2018 Secondary NOT GIVENUNK [place] Insurance:SELF PAY [facility] Number: Effective Repository Date:2018-04-09 04/06/2018 CRYSTAL L Primary CRYSTAL L [place] [id number] Insurance:ANTHEM WINESDOB: Community [employer] [employer] PPOPolicy [id number] [place] Number: Repository [address]Bua: (234) [id number] [phone] () Date:6513-17-91[address]RJTTKHM, [place] [address]JG: 04/06/2018 Secondary NOT GIVENUNK [place] Insurance:SELF PAY [facility] Number: Effective Repository Date:2018-04-06 03/24/2018 CRYSTAL L Primary CRYSTAL L Marcus [id number] Insurance:ANTHEMPolic WINESDOB: Community CRISTINA y Number: [id number] [place] [id number] Repository [address]Vjv: (234) Date:8546-31-75ZP [phone] () 201664SGJAALS, [place] [address]UF: 03/24/2018 Secondary NOT GIVENUNK [place] Insurance:SELF PAY [facility] Number: Effective Repository Date:2018-03-24 03/24/2018 CRYSTAL L Primary CRYSTAL L [place] [id number] Insurance:ANTHEMPolic WINESDOB: [facility] y Number: [id number] [place], [place] [id number] Repository [address]Lsg: (234) Date:4889-51-76NK [phone] () [address]1427PPRNFYF, [place] [address]II: 03/24/2018 Secondary NOT GIVENUNK [place] Insurance:SELF PAY [facility] Number: Effective Repository Date:2018-03-24 03/12/2018 Crystal L Primary Crystal L [place] [id number] Insurance:ANTHEM WinesDOB: Community [employer] PPOPolicy [id number] [place] Number: Repository [address]Ctw: (234) [id number] [phone] () Date:3754-23-13ZX [address]QTUXQQK, [place] [address]OJ: 03/12/2018 Secondary NOT GIVENUNK [place] Insurance:SELF PAY [facility] Number: Effective Repository Date:2018-03-12 03/09/2018 Crystal L Primary Crystal L [place] [id number] Insurance:ANTHEM WinesDOB: Community [employer] PPOPolicy [id number] [place] Number: Repository [address]Vmu: (234) [id number] [phone] () Date:3672-65-50DO [address]UMVDNRL, [place] [address]EG: 03/09/2018 Secondary NOT GIVENUNK Marcus Insurance:SELF PAY [facility] Number: Effective Repository Date:2018-03-09 03/09/2018 Crystal L Primary Crystal L [place] [id number] Insurance:ANTHEM WinesDOB: Community [employer] PPOPolicy [id number] [place] Number: Repository [address]Dux: 234 [id number] [phone] () Date:0934-17-82ON [address]JNPCRTA [place] [address]CZ: 03/09/2018 Secondary NOT GIVENUNK [place] Insurance:SELF PAY [facility] Number: Effective Repository Date:2018-03-09 03/09/2018 Crystal L Primary Crystal L [place] [id number] Insurance:ANTHEM WinesDOB: Community [employer] PPOP[employer]icy [id number] [place] Number: Repository [address]Ets: 234 [id number] [phone] () Date:7157-14-76ZK [address]KEECABB [place] [address]BT: 03/09/2018 Secondary NOT GIVENUNK [place] Insurance:SELF PAY [facility] Number: Effective Repository Date:2018-03-09 03/09/2018 Crystal L Primary Crystal L Marcus [id number] Insurance:ANTHEM WinesDOB: Community [employer] PPOPolicy [id number] [place] Number: Repository [address]Sjg: 234 [id number] [phone] () Date:9864-10-03GI [address]RDECMAW, [place] [address]MO: 03/09/2018 Secondary NOT GIVENUNK Marcus Insurance:SELF PAY [facility] Number: Effective Repository Date:2018-03-09 03/04/2018 Crystal L Primary Crystal L Marcus [id number] Insurance:ANTHEM WinesDOB: Community [employer] PPOP[facility] [id number] [place] Number: Repository [address]Bob: (234) [id number] [phone] (HP) Date:0336-04-96AJ [address]KQJCUJX, [place] [address]DL: 03/04/2018 Secondary NOT GIVENUNK [place] Insurance:SELF PAY [facility] Number: Effective Repository Date:2018-03-04 02/26/2018 Crystal L Primary Crystal L [place] [id number] Insurance:ANTHEM WinesDOB: Community [employer] PP[facility] [id number] [place] Number: Repository [address]Kxz: (234) [id number] [phone] () Date:8935-68-95FR [address]OSSUXIH, [place] [address]NJ: 02/26/2018 Secondary NOT GIVENUNK [place] Insurance:SELF PAY [facility] Number: Effective Repository Date:2018-02-26 02/22/2018 Crystal L Primary Crystal L [place] [id number] Insurance:ANTHEM WinesDOB: Community [employer] PPOPolicy [id number] [facility] [place] Number: Repository [address]Aan: (234) [id number] [phone] () Date:0075-05-19JL [address] [place] [address] [place] [address]MK: 02/22/2018 Secondary NOT GIVENUNK Marcus Insurance:SELF PAY [facility] Number: Effective Repository Date:2018-02-22 02/19/2018 Crystal L Primary Crystal L [place] [id number] Insurance:ANTHEM WinesDOB: Community [employer] PPOPolicy [id number] [place] Number: Repository [address]Owi: (234) [id number] [phone] () Date:9320-69-43WL [address]ZHXREDE, [place] [address]VA: 02/19/2018 Secondary NOT GIVENUNK [place] Insurance:SELF PAY [facility] Number: Effective Repository Date:2018-02-19 02/05/2018 Crystal L Primary Crystal L [place] [id number] Insurance:ANTHEM WinesDOB: Community [employer] PPOPolicy [id number], [place] Number: Repository [address]Cau: (234 [id number] [phone] (HP) Date:6590-10-57NO[address] [address]NI: 02/05/2018 Secondary NOT GIVENUNK [place] Insurance:SELF PAY [facility] Number: Effective Repository Date:2018-02-05 01/28/2018 Crystal L Primary Crystal L [place] [id number] Insurance:ANTHEM WinesDOB: Community [employer] PPOPolicy [id number], [place] Number: Repository [address]Ksr: (234 [id number] [phone] () Date:3603-52-47BG [address] [place] [address]AP: 01/28/2018 Secondary NOT GIVENUNK [place] Insurance:SELF PAY [facility] Number: Effective Repository Date:2018-01-28 01/22/2018 Crystal L Primary Crystal L [place] [id number] Insurance:ANTHEM WinesDOB: Community [employer] PPOPolicy [id number], [place] Number: Repository [address]Yvv: (234) [id number] [phone] (HP) Date:0085-40-38SS [address] [place] [address]TW: 01/22/2018 Secondary NOT GIVENUNK [place] Insurance:SELF PAY [facility] Number: Effective Repository Date:2018-01-22 01/16/2018 Crystal L Primary Crystal L [place] [id number] Insurance:ANTHEM WinesDOB: Community [employer] PPOPolicy [id number], [place] Number: Repository [address]Jcq: (234) [id number] [phone] (HP) Date:7648-99-85PA [address]RLODSPBNOAH CARRANZA [address]WH: 01/16/2018 Secondary NOT GIVENUNK [place] Insurance:SELF PAY [facility] Number: Effective Repository Date:2018-01-16 01/12/2018 Crystal L Primary Crystal L Marcus [id number] Insurance:ANTHEM WinesDOB: Community [employer] PPOPolicy [id number] Number: Repository [address]Twc: (234 [id number] [phone] () Date:6436-11-48VB [address]09MNHGXSQ, [place] [address]KN: 01/12/2018 Secondary NOT GIVENUNK [place] Insurance:SELF PAY [facility] Number: Effective Repository Date:2018-01-12 01/11/2018 Crystal L Primary Crystal L [place] [id number] Insurance:ANTHEM WinesDOB: Community [employer] PPOPolicy [id number] [place] [address] Number: Repository [phone]: (234 [id number] [phone] () Date:7915-41-23UA [address]39QQCXOTS, [place] [address]CH: 01/11/2018 Secondary NOT GIVENUNK [place] Insurance:SELF PAY [facility] Number: Effective Repository Date:2018-01-11 01/09/2018 Crystal L Primary Crystal L Marcus [id number] Insurance:ANTHEM WinesDOB: Community [employer] PPOPolicy [id number] Number: Repository [address]Ysm: (234 [id number] [phone] () Date:0160-57-28RB [address] [address]LF: 01/09/2018 Secondary NOT GIVENUNK [place] Insurance:SELF PAY [facility] Number: Effective Repository Date:2018-01-09 01/07/2018 Crystal L Primary Crystal L Marcus [id number] Insurance:ANTHEM WinesDOB: Community [employer] PPOPolicy [id number] [place] Number: Repository [address]Jbd: (234) [id number] [phone] () Date:9250-40-03IQ [address] [place] [address] 1985[address]CM: 01/07/2018 Secondary NOT GIVENUNK [place] Insurance:SELF PAY [facility] Number: Effective Repository Date:2018-01-07 12/28/2017 Crystal L Primary Crystal L [place] [id number] Insurance:ANTHEM WinesDOB: Community [employer] PPOPolicy [id number] [place], [place] Number: Repository [address]Hpm: (234) [id number] [phone] () Date:1088-82-55OD [address] [place] [address]JG: 12/28/2017 Secondary NOT GIVENUNK [place] Insurance:SELF PAY [facility] Number: Effective Repository Date:2017-12-28 12/20/2017 CRYSTAL L Primary CRYSTAL L [facility] WINESDOB: Insurance:ANTHEM WINESDOB: [facility] [id number] Number: [place], [place] [id number] [place], [place] [address]Kfq: (234) Date:2017-12-19 41426Vmw: 2713-77-12Xuoz [phone] ()Tel: (999) Name:O Box () () [id number] [place] 000-0000 () [address]VP: 12/16/2017 Crystla L Primary Crystal L [place] [id number] Insurance:ANTHEM WinesDOB: Community [employer] PPOPolicy [id number] [place] Number: Repository [address]Fqv: (234) [id number] [phone] () Date:4932-68-66FK [address] [place] [address] 87[address]YP: 12/16/2017 Secondary NOT GIVENUNK [place] Insurance:SELF PAY [facility] Number: Effective Repository Date:2017-12-16 12/12/2017 CRYSTAL L Primary CRYSTAL L [facility] WINESDOB: Insurance:ANTHEM WINESDOB: [facility] [id number] [place] [address] Number: [place], [place] [id number] [place], [place] [address]Nui: (234) Date:2017-12-02 43155Uua: 0833-57-87Dsom [phone] ()Tel: (999) Name:NPO Box () () [address] [place] [address] [place] 000-0000 () [address]HJ: 12/11/2017 Crystal L Primary Crystal L [place] [id number] Insurance:ANTHEM WinesDOB: Community [employer] PPOPolicy [id number] [place], [place] Number: Repository [address]Cpz: 234) [id number] [phone] () Date:8920-44-22ZX [address] [place] [address] 189[address]NR: 12/11/2017 Secondary NOT GIVENUNK Marcus Insurance:SELF PAY [facility] Number: Effective Repository Date:2017-12-11 12/05/2017 Crystal L Primary Crystal L Marcus [id number] Insurance:ANTHEM WinesDOB: Community [employer] PPOPolicy [id number] [place], [place] Number: Repository [address]Kii: 234 [id number] [phone] () Date:1290-22-65YS [address] [place] [address] [place] [address]DR: 12/05/2017 Secondary NOT GIVENUNK [place] Insurance:SELF PAY [facility] Number: Effective Repository Date:2017-12-05 11/24/2017 Crystal L Primary Crystal L [place] [id number] Insurance:ANTHEM WinesDOB: Community [employer] PPOPolicy [id number] Hospital JANES mo Number: Repository [address]Kcs: (234) [id number] [phone] (HP) Date:1607-69-48MZ [address]UEUGSZU, [place] [address]YS: 11/24/2017 Secondary NOT GIVENUNK [place] Insurance:SELF PAY [facility] Number: Effective Repository Date:2017-11-24 11/21/2017 CRYSTAL L Primary CRYSTAL L [facility] WINESDOB: Insurance:ANTHEM WINESDOB: [facility] [id number] Repository [place] Number: CRISTINA [facility] [place] [id number] [place], [place] [address]Lza: (234) Date:2017-11-21 15482Efb: 2860-31-50Ncbj [phone] (HP)Tel: (999) Name:NPO Box (HP) (WP) [id number], [place] 000-0000 (WP) [address]PG: 11/06/2017 CRYSTLA L Primary CRYSTAL L [facility] WINESDOB: Insurance:ANTHEM WINESDOB: [facility] [id number] Repository [place] Number: CRISTINA MARR[place]OWEST [place], [place] [id number] [place], [place] [address]Bhr: (234) Date:2017-11-06 47344Uav: 3941-77-41Jgma [phone] (HP)Tel: (999) Name:NPO Box (HP) (WP) [id number], [place] 000-0000 (WP) [address]EU: 08/21/2017 CRYSTAL L Primary CRYSTAL L [facility] WINESDOB: Insurance:ANTHEM SR WINESDOB: [facility] [id number] [facility] [id number] Repository CRISTINA MEDICAREPolicy ANGÉLICA BLAND Number: ALYCIAZBIGNIEWMIRANDA ANGÉLICA [address]Njx: (348) [id number] [address]Wyo: Date:2017-08-21 [phone] ()Tel: ([phone]) [phone] () () Name:PARKER Arechiga 000-0000 (WP) [id number], [place] [address]TL:
== END 2018-07-19 17:07 | disposition home or self-care (01) ==
PROVIDERS: Emergency Provider Emergency Medicine; Family Provider Family Medicine; PCP Family Medicine
DX: R06.00 Dyspnea, unspecified (principal); R11.2 Nausea with vomiting, unspecified; D53.9 Nutritional anemia, unspecified; I25.10 Atherosclerotic heart disease of native coronary artery without angina pectoris; I25.2 Old myocardial infarction; I11.0 Hypertensive heart disease with heart failure; I50.9 Heart failure, unspecified; E11.9 Type 2 diabetes mellitus without complications; Z90.49 Acquired absence of other specified parts of digestive tract; Z79.82 Long term (current) use of aspirin; Z79.4 Long term (current) use of insulin; Z79.899 Other long term (current) drug therapy; R07.89 Other chest pain; R53.81 Other malaise; R11.0 Nausea; E66.9 Obesity, unspecified; G89.4 Chronic pain syndrome; F32.9 Major depressive disorder, single episode, unspecified; E11.43 Type 2 diabetes mellitus with diabetic autonomic (poly)neuropathy; K31.84 Gastroparesis; K21.9 Gastro-esophageal reflux disease without esophagitis; E78.5 Hyperlipidemia, unspecified; I48.0 Paroxysmal atrial fibrillation; Z53.21 Procedure and treatment not carried out due to patient leaving prior to being seen by health care provider
CPT/HCPCS: 71046; 80048; 83880; 84484; 85025; 93005; 94640; 99284; A4216

== ENCOUNTER 2018-07-20 01:53 | Emergency (ER) | payer MEDICARE, SELFPAY ==
[2018-07-19 15:32] VITALS: BMI 46.0
[2018-07-20] VITALS (7 sets, daily range): BP systolic 124–188; BP diastolic 37–85; PULSE 79–94; RESP 15–22; TEMP 36.8; O2SAT 91–97; BMI 44.2
--- NOTE | 2018-07-20 02:24 | ED.VIS.GEN ---
History of Present Illness Chief Complaint: Shortness of Breath Informant: Patient Onset: Hours - 2 Context: Onset with activity - getting ready for bed, Sudden Onset Timing: Continuous Quality: short of breath Location: chest Current Severity: Moderate Maximum Severity: Moderate Narrative: Patient presents for dyspnea for the third time in the past 24 hours, she was seen here this afternoon for the same symptoms, her workup has been negative twice in a row essentially. She states it is happening again now. She thinks it is worse when she lies down, it is definitely worse when she exerts herself, she was not lying down when this started this morning. She states after the breathing problem started, she started having lower substernal chest discomfort and then subsequently had an episode or 2 of vomiting. It is nonbilious, nonbloody. She denies any diarrhea or abdominal pain. She denies any worsening chronic leg swelling. She has a history of CHF and thinks that this feels similar although she had a BNP of 21, 24 hrs. ago. She denies having any other new symptoms. No history of DVT or PE, she had an overnight hospital stay a week ago at [facility], but no other immobility or recent travel. No recent surgeries. - Past Medical History (1) Benign essential HTN Status: Chronic (2) Chronic pain syndrome Status: Chronic (3) Congestive heart failure Status: Chronic (4) DM2 (diabetes mellitus, type 2) Status: Chronic (5) Depression Status: Chronic (6) Diabetic gastroparesis Status: Chronic (7) Diverticulitis Status: Chronic (8) GERD (gastroesophageal reflux disease) Status: Chronic (9) HLD (hyperlipidemia) Status: Chronic (10) Iron deficiency anemia Status: Chronic (11) Old myocardial infarct Status: Chronic (12) Paroxysmal atrial fibrillation Status: Chronic (13) Seizure disorder Status: Chronic Past Medical History - Allergies and Home Meds Allergies/Adverse Reactions: Allergies ciprofloxacin [From Cipro] Allergy (Verified 07/20/18 01:54) Shortness of breath ciprofloxacin HCl [From Cipro] Allergy (Verified 07/20/18 01:54) Shortness of breath cyclobenzaprine [From Flexeril] Allergy (Verified 07/20/18 01:54) Rash cyclobenzaprine HCl [From Flexeril] Allergy (Verified 07/20/18 01:54) Rash ketorolac tromethamine [From Toradol] Allergy (Verified 07/20/18 01:54) Chest tightness sulfamethoxazole [From Bactrim] Allergy (Verified 07/20/18 01:54) Itching trimethoprim [From Bactrim] Allergy (Verified 07/20/18 01:54) Itching metformin Adverse Reaction (Verified 07/20/18 01:54) Other headache valacyclovir HCl [From Valtrex] Adverse Reaction (Verified 07/20/18 01:54) Other Primary Care Physician: Devan Parks MD [Primary Care Provider] - Surgical History: appendectomy, cholecystectomy Smoking Status: Never smoker - Family History Paternal Family History: Family History (Last Reviewed 06/26/18 @ 13:16 by Carley Norwood) Mother Myocardial infarction Father Congestive heart failure Other Diabetes Heart disease Family History: Reports: Heart Disease, - - Bone cancer Maternal Family History: Family History (Last Reviewed 06/26/18 @ 13:16 by Carley Norwood) Mother Myocardial infarction Father Congestive heart failure Other Diabetes Heart disease Family History: Reports: COPD, Diabetes, Heart Disease, - - Smoker Review of Systems General: Reports: Malaise. Denies: Chills, Fever, Sweats Eyes: Denies: Visual changes - bilaterally, Diplopia ENT: Denies: Rhinorrhea, Sore throat Cardiovascular: Denies: Chest pain, Palpitations Respiratory: Reports: Dyspnea, Dyspnea on exertion, Orthopnea - pt thinks. Denies: Cough Gastrointestinal: Reports: Nausea, Vomiting. Denies: Abdominal pain, Diarrhea, Melena, Hematochezia Genitourinary: Denies: Dysuria, Hematuria, Frequency Musculoskeletal: Reports: Swelling - BLE, chronic - better than usual since on diuretic. Denies: Extremity Pain Skin: Denies: Rash, Wounds Neurological: Denies: Headache, Weakness, Parasthesia, Numbness Endocrine: Denies: Heat intolerance, Cold intolerance Allergy: Denies: Swelling of the mouth, Swelling of the tongue Physical Exam Vital Signs/Narrative: Vital Signs Temp Pulse Resp BP Pulse Ox 07/20/18 01:55 98.3 F 86 22 H 188/72 H 93 Inital Vital Signs reviewed: Yes General: Well nourished, Well developed, Obese, - - nad Head: Normocephalic, Atraumatic Eyes: Perrl, EOMI. Negative for: Scleral icterus ENT: Moist mucous membranes, No rhinorrhea Neck: Supple, Nontender, No lymphadenopathy, No JVD Cardiovascular: Regular rate, Regular rhythm, No murmurs Respiratory: No distress - but mildly tachypneic, CTA bilaterally, Chest nontender Abdomen: Soft, Nontender, Nondistended, Normal bowel sounds Back: Nontender, Normal Inspection Extremities: Nontender, Edema - 1+ bilat ankles Skin: Normal color, No rash Neurological: Alert, Oriented x3, Cranial nerves II-XII grossly intact, Normal Strength, Normal Sensation Psychological: Normal affect Diagnostic/Tx/Re-eval Impressions Chest CT 07/20/18 03:45 IMPRESSION: 1. Left basilar subsegmental atelectasis. No pneumonia or suspicious lesion. 2. Atherosclerotic calcifications including coronary artery calcifications. 3. Borderline splenomegaly. Individualized dose optimization techniques were used for this CT. at 0455 Reported and signed by: Nick Sandoval MD Electronically Signed: Nick Sandoval, at 4:53 EST Tel , Service support , 07/20/18 03:45 CT Chest [Chest without Contrast] [CT] Stat Laboratory Results 07/20/18 07/20/18 07/20/18 03:00 03:00 03:00 WBC 17.6 H RBC 4.79 Hgb 12.2 Hct 38.2 MCV 79.7 L MCH 25.5 L MCHC 31.9 L RDW 17.4 H RDW Differential 50.7 H Plt Count 366 MPV 9.2 Immature Gran % (Auto) 0.200 Neut % (Auto) 75.0 H Lymph % (Auto) 14.7 L [place] % (Auto) 7.4 Eos % (Auto) 2.4 Baso % (Auto) 0.3 Absolute Neuts (auto) 13.2 H Absolute Lymphs (auto) 2.59 Total Counted Not Reportable D-Dimer Quant (PE/DVT) 0.46 Sodium 143 Potassium 3.6 Chloride 102 Carbon Dioxide 30.0 Anion Gap 11 BUN 17 Creatinine 1.27 H Estim Creat Clear Calc 42.45 Est GFR (MDRD) Af Amer 55 L Est GFR (MDRD) Non-Af 45 L BUN/Creatinine Ratio 13.4 Glucose 66 L Calcium 9.8 Troponin I < 0.015 - Rhythm Strip Rhythm Strip: Sinus Rhythm Rate: 80 Ectopy: None - EKG Initial EKG Interpretation: Sinus Rhythm, No Acute Injury Pattern, - - mild prolonged QTc Prior: Unchanged - Medical Decision Making Labs show an increasing leukocytosis, her EKG again is unremarkable, and her troponin for the third time in 24 hours is normal. I did a d-dimer and it was normal, ruling out pulmonary embolus in this patient with no history of venous thromboembolism or acute risk factors for 1. She had a BNP of 21 that was performed 24 hours ago, so I do not think that needs to be repeated, nor her chest x-ray which was normal twice in the past 24 hours. Therefore, I sent her for a plain CT chest in order to rule out an occult infiltrate, she had a transient episode of hypoxia in the high 80s percent. The CT was essentially normal. Additionally, 2 weeks she had an echocardiogram that was normal with an EF of 60%, although was technically difficult due to her body habitus and pulmonary artery pressures and diastolic function were unable to be determined. It was otherwise unremarkable. In 2016, this patient had an EF of 35% with angiographically normal coronaries on catheterization, essentially consistent with Takatsubo cardiomyopathy. She was given a nitroglycerin again at this visit, which resolved her symptoms last visit that I saw her. She became a little lightheaded transiently and her blood pressure went down to the 120s from the 180s, but after recovering her blood pressures remained in the 130-140 range and her breathing was improved. She was also given an albuterol treatment. Given all of the studies showing normality, I discussed with Dr. Ellison who was on-call for cardiology and is her collection systems modeler. We both agree that admitting her to the hospital will probably not be helpful given her relative stability and all of the studies that have been done at this point. We both agree that it would be reasonable to manage her blood pressure better, as she may be having thoracic symptoms as a result of increased blood pressure, and that it would be reasonable to refer her to pulmonary for possible pulmonary function testing to rule out pulmonary etiology of her dyspnea. All this was discussed with her, and in the end we obtained a urinalysis to rule out an additional possible infectious cause of her leukocytosis, it is negative. At this time I feel comfortable discharging her despite her leukocytosis of 17 with instructions to continue her Lasix, double her carvedilol, and double her losartan. All of this was explained to her and she is comfortable with the overall plan. ED Disposition - Plan for ED Patient: Disposition: Home or Assisted Living Chief Complaint: Shortness of Breath Diagnosis: SOB (shortness of breath), Accelerated hypertension Instructions: ED Dyspnea Shortness of Breath Referrals: Son Ellison MD [STAFF PHYSICIAN] - As soon as possible Austin Hawley DO [STAFF PHYSICIAN] - As soon as possible Additional Instructions: Double both your carvedilol and your losartan. Carvedilol should be 6.25 mg twice daily, losartan should be 160 mg once daily. Continue taking your Lasix 40 mg once daily, and her other medications should be unchanged.
--- NOTE | 2018-07-20 02:29 | EKG12_ITS ---
Test Reason : CP Blood Pressure : / mmHG Vent. Rate : 083 BPM Atrial Rate : 083 BPM P-R Int : 140 ms QRS Dur : 086 ms QT Int : 422 ms P-R-T Axes : 009 -26 051 degrees QTc Int : 495 ms Normal sinus rhythm Leftward axis Prolonged QT Abnormal ECG Confirmed by JOSE MANUEL CURRY, SHAHIDA ([id number]), news editor MAIKEL MULLEN ([id number]) on 07/22/2018 2:56:36 PM Referred By: BB Confirmed By:SHAHIDA RICHARD MD
[2018-07-20] MEDS: Aspirin 81 MG TAB.CHEW 162 MG PO (02:40)
[2018-07-20] MEDS: Albuterol 2.5 MG/3 ML VIAL.NEB. INHALATION (02:40)
[2018-07-20] MEDS: Ondansetron 4 MG/2 ML Vial IV (02:49)
--- NOTE | 2018-07-20 02:56 | NURSING ---
PATIENT STATES PRESSURE STARTED IN HER CHEST AROUND MIDNIGHT TODAY.
--- NOTE | 2018-07-20 02:56 | ED.RN ---
ONE DOSE OF NITRO GIVEN SL PATIENT STARTED TO FEEL HOT AND BECAME DIAPHORETIC. STATES I FEEL MORE SHORT OF BREATH AND WORSE AFTER THE NITRO BP TAKEN AND IT DROPPED TO 134/74. DR. ALEX MADE AWARE AND TOLD THIS NURSE TO HOLD THE NITRO AND OFF IT AGAIN AFTER SHE IS FEELING BETTER.
[2018-07-20 03:15] LABS: Absolute Lymphocyte Count 2.59 X10^3/ul (0.83-4.51); Absolute Neutrophil Count 13.2 X10^3/uL (2.0-7.7); Basophil# 0.05 X10^3/uL; Basophil% 0.3 % (0-1); Eosinophil# 0.43 X10^3/uL; Eosinophils% 2.4 % (0-5); Hematocrit 38.2 % (37-47); Hemoglobin 12.2 g/dl (12.0-15.0); Lymphocyte # 2.59 X10^3/ul (4.0); Lymphocyte % 14.7 % (19-41); Mean Corp Hgb Conc 31.9 g/gl (32-36); Mean Corpuscular Hgb 25.5 pg (27.0-32.0); Mean Corpuscular Volume 79.7 fL (81-99); Mean Platelet Vol. 9.2 fl (6.2-12.0); Monocyte# 1.31 X10^3/uL; Monocyte% 7.4 % (0-10); Neutrophil # 13.17 X10^3/uL (2.7-7.7); Platelet Count 366 K/mm3 (150-450); RBC Distribution Width CV 17.4 % (11.6-14.6); RBC Distribution Width SD 50.7 fl (35.1-43.9); Red Blood Count 4.79 M/mm3 (4.2-5.4); White Blood Count 17.6 K/mm3 (4.4-11.0)
--- NOTE | 2018-07-20 03:21 | NURSING ---
PATIENT DOES NOT WANT ANY MORE NITRO BECAUSE SHE DOES NOT WANT HER BP TO DROP ANYMORE AND SHE STATES IT MADE HER FEEL WORSE.
[2018-07-20 03:23] LABS: Anion Gap 11 (5-15); BUN 17 mg/dL (7-18); BUN/Creat Ratio 13.4 RATIO (10-20); Calcium,Total 9.8 mg/dL (8.5-10.1); Chloride 102 mmol/L (98-107); Creatinine, Serum 1.27 mg/dL (0.55-1.02); EST Glomerular Filtration Rate 45 mL/min (>60); Est Glom Filt Rate - Afr Amer 55 mL/min (>60); Estimated Creatinine Clearance 42.45 ml/min; Glucose 66 mg/dL (74-106); Potassium 3.6 mmol/L (3.5-5.1); Sodium Level 143 mmol/L (136-145)
[2018-07-20 03:30] LABS: POSITIVE COUNT NO; POSITIVE DIFFERENTIAL NO; POSITIVE MORPHOLOGY NO
[2018-07-20 03:33] LABS: D-Dimer Quantitative (DVT/PE) 0.46 FEU/ug/m (0.27-0.49)
--- NOTE | 2018-07-20 03:45 | CT_ITS ---
HISTORY: SOB,NAUSEA AND VOMITING,ELEVATED BP AND WBCHX:A-FIB,CHF,DIABETES,HLD,HTN,PE TECHNIQUE: Helically acquired images were obtained of the chest. A radiation dose optimization technique was used for this scan. IV Contrast dosage and agent: None COMPARISON: CTA chest 04/18/2018 and chest x-ray 07/19/2018 FINDINGS: Left lower lobe mild subsegmental atelectasis, new compared to previous. No central obstructing lesion and no pulmonary consolidation. Right lung appears clear. No bronchiectasis or pleural effusion. Anterior segment right lower lobe (image [id number]) 5 mm perifissural nodule, posterior to the right major fissure. These type nodules are typically benign Atherosclerotic thoracic aorta which is normal in caliber. Coronary artery calcifications, as well. No pericardial effusion. No hilar, mediastinal, or axillary lymph node enlargement on this non-infusion exam. Borderline splenomegaly. Adrenal glands are not enlarged. CT/Chest without Contrast IMPRESSION: 1. Left basilar subsegmental atelectasis. No pneumonia or suspicious lesion. 2. Atherosclerotic calcifications including coronary artery calcifications. 3. Borderline splenomegaly. Individualized dose optimization techniques were used for this CT. at 0455 Reported and signed by: Nick Sandoval MD Electronically Signed: Nick Sandoval, at 4:53 EST Tel , Service support ,
[2018-07-20] MEDS: Acetaminophen 500 MG Tablet 1000 MG PO (03:49)
--- NOTE | 2018-07-20 04:44 | NURSING ---
Addendum entered by Gunnar Van 07/20/18 04:47: ACTUALLY HE ORDERED PHENERGAN NOT ZOFRAN. Original Note: DR. ALEX ASKED IF PATIENT DROPPED BELOW 90 AND I TOLD HIM THAT PATIENT WAS PUT ON 3 LITERS BECAUSE SHE WAS LAYING ON HER SIDE AND WAS DROPPING IN THE MID 80'S AND WHEN I REPOSITIONED HER SHE DID NOT RAISE ABOVE 91% ON 2L. SHE IS CURRENTLY 96% ON 3L. I ALSO JUST TOLD DR. ALEX THAT SHE JUST REQUESTED SOMETHING FOR NAUSEA. HE ORDERED ZOFRAN FOR HER.
[2018-07-20] MEDS: proMETHazine 25 MG/ML Syringe 6.25 MG IV (04:52)
--- NOTE | 2018-07-20 05:02 | ED.RN ---
DR. ALEX MADE AWARE OF PATIENT STILL HAVING RIGHT ARM PAIN/ACHINESS. I ALSO LOWERED HER O2 DOWN TO 2L AND SHE IS MAINTAINING AT 96-97%.
--- NOTE | 2018-07-20 05:22 | ED.RN ---
DR. ALEX MADE AWARE OF PATIENT REQUESTING PAIN MEDICATION FOR HER ARM ACHINESS. HE SAID THAT HE WAS NOT GOING TO GIVE HER ANYTHING STRONGER. WHEN I WENT IN TO TELL HER DR. ALEX WAS COMING IN TO GIVE HER TEST RESULTS. HE ALSO TOLD ME TO PUT AN ICE PACK ON HER ARM WHICH I DID.
[2018-07-20 06:22] LABS: Red Blood Cells-Urine 0 SEEN /hpf (0-5)
[2018-07-20 06:35] LABS: Color, Urine Yellow (Yellow); Glucose, Dipstick Normal (Normal); Ketone-Dipstick Negative (Negative); Leukocyte Esterase-Dipstick 25 /ul (Negative); Nitrite-Dipstick Negative (Negative); Occult Blood-Urine Negative /ul (Negative); Protein-Dipstick 30 mg/dl (Negative); Urine Bilirubin Dipstick Negative (Negative); Urine Clarity Sl. Cloudy (Clear); Urine Urobilinogen 1 mg/dl (Normal)
[2018-07-20 06:36] LABS: Bacteria RARE /hpf (None Seen); Squamous Epithelial Cells - UA 0-5 SEEN /hpf (5-10); White Blood Cells 0-5 SEEN /hpf (0-5)
--- OUTSIDE RECORDS SUMMARY | 2018-09-12 22:19 | XMS RPT_ITS ---
:1955 Author Organization OHIP Support Name Relationship Address Phone D Unavailable Unavailable Unavailable GARDUNO, KERA Unavailable [address] + [place] [address] D Unavailable Unavailable Unavailable GARDUNO, KERA Unavailable [address] + [place] [address] D Unavailable Unavailable Unavailable GARDUNO, KERA Unavailable [address] + [place] [address] GARDUNO, KERA Unavailable Unavailable + CHEIKH CRAMER Unavailable [address] + [place] [address] D Unavailable Unavailable Unavailable GARDUNO, KERA Unavailable [address] + [place] [address] D Unavailable Unavailable Unavailable GARDUNO, KERA Unavailable [address] + [place] [address] D Unavailable Unavailable Unavailable GARDUNO, KERA Unavailable [address] + [place] [address] D Unavailable Unavailable Unavailable GARDUNO, KERA Unavailable [address] + [place] [address] SCHULENBURG, KERA Unavailable Unavailable + CHEIKH CRAMER Unavailable [address] + [place] [address] SCHULENBURG, KERA Unavailable Unavailable + CHEIKH CRAMER Unavailable [address] + [place] [address] D Unavailable Unavailable Unavailable GARDUNO, KERA Unavailable [address] + [place] [address] GARDUNO, KERA Unavailable Unavailable + CHEIKH CRAMER Unavailable [address] + [place] [address] D Unavailable Unavailable Unavailable SCHULENBURG, KERA Unavailable Unavailable + GARDUNO, KERA Unavailable Unavailable + BELA, CHEIKH Unavailable [address] + [place] [address] SCHULENBURG, KERA Unavailable Unavailable + BELA, CHEIKH Unavailable [address] + [place] [address] SCHULENBURG, KERA Unavailable Unavailable + BELA, CHEIKH Unavailable [address] + [place] [address] D Unavailable Unavailable Unavailable SCHULENBURG, KERA Unavailable Unavailable + D Unavailable Unavailable Unavailable SCHULENBURG, KERA Unavailable [address] + [place] [address] D Unavailable Unavailable Unavailable SCHULENBURG, KERA Unavailable Unavailable + D Unavailable Unavailable Unavailable SCHULENBURG, KERA Unavailable Unavailable + D Unavailable Unavailable Unavailable SCHULENBURG, KERA Unavailable Unavailable + D Unavailable Unavailable Unavailable SCHULENBURG, KERA Unavailable [address] + [place] [address] D Unavailable Unavailable Unavailable SCHULENBURG, KERA Unavailable Unavailable + D Unavailable Unavailable Unavailable SCHULENBURG, KERA Unavailable Unavailable + D Unavailable Unavailable Unavailable SCHULENBURG, KERA Unavailable [address] + [place] [address] D Unavailable Unavailable Unavailable SCHULENBURG, KERA Unavailable [address] + [place] [address] D Unavailable Unavailable Unavailable SCHULENBURG, KERA Unavailable [address] + [place] [address] D Unavailable Unavailable Unavailable SCHULENBURG, KERA Unavailable Unavailable + D Unavailable Unavailable Unavailable SCHULENBURG, KERA Unavailable Unavailable + D Unavailable Unavailable Unavailable SCHULENBURG, KERA Unavailable Unavailable + D Unavailable Unavailable Unavailable SCHULENBURG, KERA Unavailable Unavailable + D Unavailable Unavailable Unavailable SCHULENBURG, KERA Unavailable Unavailable + D Unavailable Unavailable Unavailable SCHULENBURG, KERA Unavailable Unavailable + D Unavailable Unavailable Unavailable SCHULENBURG, KERA Unavailable Unavailable + D Unavailable Unavailable Unavailable SCHULENBURG, KERA Unavailable Unavailable + D Unavailable Unavailable Unavailable SCHULENBURG, KERA Unavailable Unavailable + D Unavailable Unavailable Unavailable SCHULENBURG, KERA Unavailable Unavailable + D Unavailable Unavailable Unavailable SCHULENBURG, KERA Unavailable Unavailable + D Unavailable Unavailable Unavailable SCHULENBURG, KERA Unavailable Unavailable + D Unavailable Unavailable Unavailable SCHULENBURG, KERA Unavailable Unavailable + BELA, CHEIKH Unavailable [address] + [place] [address] BELA, CHEIKH Unavailable [address] + [place] [address] D Unavailable Unavailable Unavailable SCHULENBURG, KERA Unavailable Unavailable + BELA, CHEIKH Unavailable [address] + [place] [address] BELA, CHEIKH Unavailable [address] + [place] [address] D Unavailable Unavailable Unavailable SCHULENBURG, KERA Unavailable Unavailable + D Unavailable Unavailable Unavailable SCHULENBURG, KERA Unavailable Unavailable + D Unavailable Unavailable Unavailable SCHULENBURG, KERA Unavailable Unavailable + BELA, CHEIKH Unavailable [address] + [place] [address] BELA, CHEIKH Unavailable [address] + [place] [address] BELA, CHEIKH Unavailable [address] + [place] [address] BELA, CHEIKH Unavailable [address] + [place] [address] BELA, CHEIKH Unavailable [address] + [place] [address] BELA, CHEIKH Unavailable [address] + [place] [address] Care Team Providers Name Role Phone YOU PARKS MD Attending Unavailable YOU PARKS MD. Primary Care Unavailable YOU PARKS MD Attending Unavailable YOU PARKS MD Primary Care Unavailable YOU PARKS MD Attending Unavailable YOU PARKS MD Primary Care Unavailable YOU PARKS MD Attending Unavailable YOU PARKS MD Primary Care Unavailable REFERRING REFERRING, LUÍS STALEY WO ID~[id number] Attending Unavailable YOU PARKS MD Primary Care Unavailable PENNY FLETCHER MD Attending Unavailable YOU PARKS MD Primary Care Unavailable ARGENISABDIRIZAK CAR, [place]. RENZO Serrato Attending Unavailable YOU PARKS MD Primary Care Unavailable YOU PARKS MD Consulting Unavailable YOU PARKS MD Primary Care Unavailable DIPAK CROW MD Attending Unavailable DIPAK CROW MD Admitting Unavailable CALVIN BARBER, MD. JENNY Recinos Consulting Unavailable [facility] [place], [place]. RENZO Serrato Attending Unavailable YOU PARKS [...] Attending Unavailable Jose Alberto Umana Attending Unavailable MuanaMarineo Referring Unavailable PARKS, YOU Primary Care Unavailable [...] Unavailable Ana Rosa, Jose Admitting Unavailable [place], [place] Attending Unavailable Ana Rosa, Jose Admitting Unavailable PARKS, YOU Primary Care Unavailable Ana Rosa, Jose Consulting Unavailable Sandra Burks Attending Unavailable Ana Rosa, Jose Admitting Unavailable [place], [place] Attending Unavailable PARKS, YOU Primary Care Unavailable [place], [place] Consulting Unavailable Chanel Rosario APPLICATIONS SALES REPRESENTATIVE-C Attending Unavailable PARKS, YOU Referring Unavailable Ana Rosa, Jose Admitting Unavailable [place], [place] Attending Unavailable PARKS, YOU Primary Care Unavailable [place], [place] Consulting Unavailable PARKS, YOU Primary Care Unavailable [...] Unknown I51.81 - Takotsubo Son Ellison Active [facility] syndrome / Community I51.81(ICD-10) Hospital Repository 06/26/2018 Unknown 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 / Hospital I25.2(ICD-10) Repository 05/16/2018 Unknown 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 / Community M06.4(ICD-10) Hospital Repository 05/16/2018 Unknown M21.40 - Flat foot Samra Jacques Active [facility] [pes planus] Community (acquired), Hospital unspecified foot / Repository M21.40(ICD-10) 05/16/2018 Unknown M51.37 - Other Samra Jacques Active [facility] intervertebral disc Community degeneration, Hospital lumbosacral region / Repository M51.37(ICD-10) 05/16/2018 Unknown M47.897 - Other Samra Jacques Active [facility] spondylosis, Community lumbosacral region / Hospital M47.897(ICD-10) Repository 05/16/2018 Unknown M47.892 - Other Samra Jacques Active [facility] spondylosis, Community cervical region / Hospital M47.892(ICD-10) Repository 05/13/2018 Admitting Edema, unspecified / ARGENIS JOURNAL ENTRY AUDIT CLERK, MS. Active [facility] Diagnosis R60.9(ICD-10) [facility] 03/26/2018 Unknown R06.02 - Shortness Farooq, Dwayne Active [facility] of breath / Community R06.02(ICD-10) Hospital Repository 03/26/2018 Unknown A41.9 - Sepsis, [place], [place] Active [facility] unspecified organism Community / A41.9(ICD-10) Hospital Repository 03/26/2018 Unknown R11.0 - Nausea / [place], Mansoor Active [facility] R11.0(ICD-10) [facility] Hospital Repository 03/26/2018 Unknown R10.9 - Unspecified Umana, Jose Alberto Active [facility] abdominal pain / Community R10.9(ICD-10) Hospital Repository 03/26/2018 Unknown R11.10 - Vomiting, Mansoor Haywood Active [facility] unspecified / Community R11.10(ICD-10) Hospital Repository 12/31/2017 Active Other disorders of NA Active [place] nervous system / [facility] G98.8(ICD-10) [place] Repository 03/26/2018 Unknown R06.00 - Dyspnea, Jwayyed, Active [facility] unspecified / [place] Community R06.00(ICD-10) Hospital Repository 03/26/2018 Unknown R11.2 - Nausea with Ahmed, Rami Active [facility] vomiting, Community unspecified / Hospital R11.2(ICD-10) Repository 11/21/2017 Admitting Type 2 diabetes DARYL CURRY, Active [facility] Diagnosis mellitus without YOU D. [facility] complications / Repository E11.9(ICD-10) 11/06/2017 Admitting Encounter for issue DARYL CURRY, Active [facility] Diagnosis of repeat YOU D. [facility] prescription / Repository Z76.0(ICD-10) 10/11/2017 Active Gastroparesis / NA Active [place] K31.84(ICD-10) [facility] Repository 08/21/2017 Admitting Hypothyroidism, DARYL CURRY, Active [facility] Diagnosis unspecified / YOU D. [facility] E03.9(ICD-10) Repository 08/21/2017 Admitting Mixed hyperlipidemia DARYL CURRY, Active [facility] Diagnosis / E78.2(ICD-10) YOU D. [facility] Repository PROCEDURES PROCEDURES No Procedure Records FoundRESULTS RESULTS CNOV Observed: 07/23/2018 Status: COMPLETED Source: [place] 12:45 PM [facility] REPOSITORY Office Visit (NEADMN) CRYSTAL CRAMER ([id number]) 1955 F Date Time Provider Department 07/23/18 12:45 PM AYANA JAMISON ([facility]) NEADMN During your visit today, we [...] 5/5biceps, 5/5 wrist extension, and 5/5 hand supplier engineer. Finger extensor 5/5. Finger flexor 5/5. Pronation [...] of ankles. ? Coordination: Finger-to- nose-finger and zhvq-lg-ahdx intact bilaterally. No ataxia of arms. No [...] with more than 50% of the total vbfl-if-aoam time of the visit in counseling / coordination of care. ACTIVE PROBLEM LIST Tuberculosis of Lung, Nodular, Confirmation Unspecified Diarrhea Nausea AND Vomiting No orders found for this visit on 07/23/18. Ayana Jamison MSN, AIRSET CASTER, PUBLICATIONS WRITER-C 1. This office note has been dictated [...] MONTELUKAST 10 MG TABLET >> Ayana Jamison APRN.JOURNAL ENTRY AUDIT CLERK 07/23/2018 12:17 PM >> AYANA JAMISON Wed [...] 07/23/18 PROGRESS Observed: 07/23/2018 Status: COMPLETED Source: [place] 12:20 PM [facility] REPOSITORY HNO ID: [id number] Author: Ayana Jamison Service: (none) Author Type: [...] 5/5biceps, 5/5 wrist extension, and 5/5 hand supplier engineer. Finger extensor 5/5. Finger flexor 5/5. Pronation [...] of ankles. ? Coordination: Finger-to- nose-finger and xggu-hy-nrsu intact bilaterally. No ataxia of arms. No [...] with more than 50% of the total mlyo-cj-allt time of the visit in counseling / coordination of care. ACTIVE PROBLEM LIST Tuberculosis of Lung, Nodular, Confirmation Unspecified Diarrhea Nausea AND Vomiting No orders found for this visit on 07/23/18. Ayana Jamison MSN, AIRSET CASTER, PUBLICATIONS WRITER-C 1. This office note has been dictated [...] LEAD ELECTROCARDIOGRAM Observed: 07/22/2018 Status: F Source: [place] 2:56 PM [facility] REPOSITORY [facility] Cardiovascular Services [address] [place] [address] 12 Lead EKG 07/20/18 0240 MR#: [id number] Acct: [id number] Name: CRYSTAL CRAMER Rep #: [id number] : 1955 62 From: Son Ellison MD [...] ECG Confirmed by JOSE MANUEL CURRY, SON ([id number]), proposal editor MAIKEL MULLEN ([id number]) on 07/22/2018 2:56:36 PM Referred By: BB Confirmed By:SON ELLISON MD 07/22/18 1456 Date Son Ellison MD CC: SHREYAS MARY MD; You Parks MD Signed 12 LEAD ELECTROCARDIOGRAM Observed: 07/22/2018 Status: F Source: [place] 2:26 PM [facility] REPOSITORY [facility] Cardiovascular Services [address] [place] [address] 12 Lead EKG 07/19/18 1633 MR#: [id number] Acct: [id number] Name: CRYSTAL CRAMER Rep #: [id number] : 1955 62 From: Son Ellison MD [...] ECG Confirmed by JOSE MANUEL CURRY, SON ([id number]), proposal editor MAIKEL MULLEN ([id number]) on 07/22/2018 2:26:01 PM Referred By: SIMI Confirmed By:SON ELLISON MD 07/22/18 1426 Date Son Ellison MD CC: Ray Perez MD; You Parks MD Signed 12 LEAD ELECTROCARDIOGRAM Observed: 07/22/2018 Status: F Source: [place] 2:04 PM [facility] REPOSITORY [facility] Cardiovascular Services [address] [place] [address] 12 Lead EKG 07/19/18 0056 MR#: [id number] Acct: [id number] Name: CRYSTAL CRAMER L Rep #: [id number] : 1955 62 From: Perfecto Haskins MD [...] ECG Confirmed by PERFECTO HASKINS MD ([id number]), proposal editor MAIKEL MULLEN ([id number]) on 07/22/2018 2:04:21 PM Referred By: CHANDRA Confirmed By:PERFECTO HASKINS MD 07/22/18 1404 Date Perfecto Haskins MD CC: SHREYAS MARY MD; You Parks MD Signed EMERGENCY DEPARTMENT Observed: 07/20/2018 Status: F Source: [place] SUMMARY 7:16 AM [facility] REPOSITORY [facility] Medical Records Department [address] [place] [address] Emergency Department Summary 07/20/18 0224 MR#: [id number] Acct: [id number] Name: CRYSTAL CRAMER Rep #: [id number] : 1955 62 From: Shreays Mary MD PCP: You Parks MD Status: [...] overnight hospital stay a week ago at [facility], but no other immobility or recent [...] 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 We both agree that admitting her to [...] your Primary Care Provider. Call [facility] ([phone]) or report to the closest Emergency Room. Call 911 if necessary. 07/20/18 0716 <Electronically signed by Shreyas Mary MD> Date Shreyas Mary MD Cosigner Signature (If Indicated): Date CC: You Parks MD URINALYSIS, COMPLETE Collected: 07/20/2018 Status: F Source: [place] 6:15 AM [facility] REPOSITORY Order Comment: Order Date: 07/20/18 NOTE - MICROSCOPIC EXAM DONE ON UNSPUN URINE. ONLY 1 ML SAMPLE SUBMITTED How was Urine Obtained? AUTOMATION MACHINE OPERATOR TO SPECIFY TYPE CODE TESTS RESULT OUT [...] BACTERIA RARE Performed By: #### L400.0001 #### [facility] [address] [facility] [place], [address] CHEST WITHOUT Observed: 07/20/2018 Status: F Source: [place] CONTRAST 3:46 AM [facility] REPOSITORY [facility] Imaging Services [address] [place] [address] Chest without Contrast MR#: [id number] Acct: [id number] Name: CRYSTAL CRAMER Rep #: [id number] : 1955 F 62 From: Nick Sandoval MD PCP: You Parks MD Status: REG ER Study: Chest without Contrast Date of Exam: 07/20/18 Exam# [id number] Ordering Dr: Shreyas Mary MD HISTORY: SOB,NAUSEA [...] CC: SHREYAS MARY MD; You Parks MD Fiscal Technician: Signed BASIC METABOLIC Collected: 07/20/2018 Status: F Source: [place] PROFILE (BMP) 3:00 AM [facility] REPOSITORY TYPE CODE TESTS RESULT OUT [...] 11 Performed By: #### L500.2500, L501.4010 #### [facility] [address]. [place], [place], [id number] TROPONIN-I Collected: 07/20/2018 Status: F Source: [place] 3:00 AM [facility] REPOSITORY TYPE CODE TESTS RESULT OUT OF RANGE REFERENCE UNITS LAB L501.4010 <0.045 ng/mL Normal < 0.015 TROPONIN-I Result Comment: TROPONIN-I EXPECTED VALUES <0.045 Negative 0.045 - 0.590 Consistent with Cardiac Damage > OR = 0.600 Critical Value Not every elevated troponin is indicative of IA. These values should be used with clinical judgement in examining the patient's clinical picture for diagnosis. To establish a diagnosis of IA versus myocardial injury, there must be a demonstrated rise and/or fall in the troponin values, in addition to ischemic symptoms, EKG changes, new regional wall motion abnormality, and/or angiographical evidence. PLEASE NOTE: REFERENCE RANGES EDITED 17 Performed By: #### L500.2500, L501.4010 #### [facility] [address] [place], [place], [id number] CBC W/DIFF, AUTOMATED Collected: 07/20/2018 Status: F Source: [place] 3:00 AM [facility] REPOSITORY TYPE CODE TESTS RESULT OUT [...] Lymph 2.59 Performed By: #### L100.0100 #### [facility] [address] [facility]. [place], [place], [address] D-DIMER QUANTITATIVE Collected: 07/20/2018 Status: F Source: [place] (DVT/PE) 3:00 AM [facility] REPOSITORY TYPE CODE TESTS RESULT OUT OF RANGE REFERENCE UNITS LAB L300.8000 0.27-0.49 FEU/ug/m Normal D-DIMER 0.46 QUANT Result Comment: NORMAL D-Dimer level (<0.50) indicates no DVT or PE. Performed By: #### L300.8000 #### [facility] [address] [place], [address] EMERGENCY DEPARTMENT Observed: 07/19/2018 Status: F Source: [place] SUMMARY 9:51 PM [facility] REPOSITORY [facility] Medical Records Department [address] [place] [address] Emergency Department Summary 07/19/18 1556 MR#: [id number] Acct: [id number] Name: CRYSTAL CRAMER Rep #: [id number] : 1955 62 From: Ray Perez MD PCP: You Parks MD Status: DEP ER - ER Visit Summary Date of Service: 07/19/18 Chief Complaint: Shortness of breath History of Present Illness: The patient is a 62 F history of insulin-dependent diabetes, hypertension, CAD, IA, CHF. Patient presented the emergency department around [...] pain or swelling. She was admitted to [facility] around [facility] for congestive heart failure. She denies any [...] all 4 extremities. She is equal symmetrical supplier engineer strength. Dorsi plantar flexion intact. Calves are [...] of uncertain etiology History of CHF, CAD, IA, insulin-dependent diabetes This note was generated with O4ITation software. It may contain incorrect words, spelling, [...] your Primary Care Provider. Call [facility] ([phone]) or report to the closest Emergency Room. Call 911 if necessary. 07/19/18 2151 <Electronically signed by Ray Perez MD> Date Ray Perez MD Cosigner Signature (If Indicated): Date CC: You Parks MD DISCHARGE INSTRUCTION Observed: 07/19/2018 Status: F Source: [place] 9:51 PM [facility] REPOSITORY [facility] Medical Records Department [address] [place] [address] Discharge Instruction 07/19/18 1700 MR#: [id number] Acct: [id number] Name: CRYSTAL CRAMER Rep #: [id number] : 1955 62 From: Ray Perez MD [...] your Primary Care Provider. Call [facility] ([phone]) or report to the closest Emergency Room. Call 911 if necessary. 07/19/182150 <Electronically signed by Ray Perez MD> Date Ray Perez MD Cosigner Signature (If Indicated): Date CC: You Parks MD CBC W/DIFF, AUTOMATED Collected: 07/19/2018 Status: F Source: [place] 4:10 PM [facility] REPOSITORY TYPE CODE TESTS RESULT OUT [...] Lymph 2.04 Performed By: #### L100.0100 #### [facility] [address] [place], [address] BASIC METABOLIC Collected: 07/19/2018 Status: F Source: [place] PROFILE (BMP) 4:10 PM [facility] REPOSITORY TYPE CODE TESTS RESULT OUT [...] 10 Performed By: #### L500.2500, L501.4010 #### [facility] [address] [place], [address] TROPONIN-I Collected: 07/19/2018 Status: F Source: [place] 4:10 PM [facility] REPOSITORY TYPE CODE TESTS RESULT OUT OF RANGE REFERENCE UNITS LAB L501.4010 <0.045 ng/mL Normal < 0.015 TROPONIN-I Result Comment: TROPONIN-I EXPECTED VALUES <0.045 Negative 0.045 - 0.590 Consistent with Cardiac Damage > OR = 0.600 Critical Value Not every elevated troponin is indicative of IA. These values should be used with clinical judgement in examining the patient's clinical picture for diagnosis. To establish a diagnosis of IA versus myocardial injury, there must be a demonstrated rise and/or fall in the troponin values, in addition to ischemic symptoms, EKG changes, new regional wall motion abnormality, and/or angiographical evidence. PLEASE NOTE: REFERENCE RANGES EDITED 17 Performed By: #### L500.2500, L501.4010 #### [facility] [address] [place], [address] CHEST PA AND LATERAL Observed: 07/19/2018 Status: F Source: [place] 3:54 PM [facility] REPOSITORY [facility] Imaging Services [address] [place] [address] Chest PA and Lateral MR#: [id number] Acct: [id number] Name: CRYSTAL CRAMER Rep #: [id number] : 1955 F 62 From: Sterling Fields MD PCP: You Parks MD Status: DEP ER Study: Chest PA and Lateral Date of Exam: 07/19/18 Exam# [id number] Ordering Dr: Ray Perez MD STUDY: X-RAY [...] CC: Ray Perez MD; You Parks MD Fiscal Technician: Signed EMERGENCY DEPARTMENT Observed: 07/19/2018 Status: F Source: [place] SUMMARY 3:12 AM [facility] REPOSITORY [facility] Medical Records Department [address] [place] [address] Emergency Department Summary 07/19/18 0114 MR#: [id number] Acct: [id number] Name: CRYSTAL CRAMER Rep #: [id number] : 1955 62 From: Shreyas Mary MD [...] She was admitted for 1 night at [facility] last week and diagnosed with congestive heart failure, placed on Lasix, she was having edema and states that since she has been treated with Lasix the edema is better, and not worsening now. She still feels that her feet are both swollen, but her legs are much better. Hx of an IA several years ago, no stents or CABG [...] your Primary Care Provider. Call [facility] ([phone]) or report to the closest Emergency Room. Call 911 if necessary. 07/19/18311 <Electronically signed by Shreyas Mary MD> Date Shreyas Mary MD Cosigner Signature (If Indicated): Date CC: You Parks MD CBC W/DIFF, AUTOMATED Collected: 07/19/2018 Status: F Source: [place] 1:05 AM [facility] REPOSITORY TYPE CODE TESTS RESULT OUT [...] Lymph 2.93 Performed By: #### L100.0100 #### [facility] [address] [place], [place], [id number] BASIC METABOLIC Collected: 07/19/2018 Status: F Source: [place] PROFILE ([facility]) 1:05 AM [facility] REPOSITORY TYPE CODE TESTS RESULT OUT [...] 10 Performed By: #### L500.2500, L501.4010 #### [facility] [address] [place], [place], [id number] TROPONIN-I Collected: 07/19/2018 Status: F Source: [place] 1:05 AM [facility] REPOSITORY TYPE CODE TESTS RESULT OUT OF RANGE REFERENCE UNITS LAB L501.4010 <0.045 ng/mL Normal < 0.015 TROPONIN-I Result Comment: TROPONIN-I EXPECTED VALUES <0.045 Negative 0.045 - 0.590 Consistent with Cardiac Damage > OR = 0.600 Critical Value Not every elevated troponin is indicative of IA. These values should be used with clinical judgement in examining the patient's clinical picture for diagnosis. To establish a diagnosis of IA versus myocardial injury, there must be a demonstrated rise and/or fall in the troponin values, in addition to ischemic symptoms, EKG changes, new regional wall motion abnormality, and/or angiographical evidence. PLEASE NOTE: REFERENCE RANGES EDITED 17 Performed By: #### L500.2500, L501.4010 #### [facility] [address] [place], [address] BNP,B-TYPE NATRIURETIC Collected: 07/19/2018 Status: F Source: [place] 1:05 AM [facility] REPOSITORY TYPE CODE TESTS RESULT OUT OF RANGE REFERENCE UNITS LAB L503.6620 0-100 pg/mL Normal B-TYPE 21.9 LANDON PEP Performed By: #### L503.6620 #### [facility] [address] [place], [address] CHEST PA AND LATERAL Observed: 07/19/2018 Status: F Source: [place] 12:47 AM [facility] REPOSITORY [facility] Imaging Services [address] [place] [address] Chest PA and Lateral MR#: [id number] Acct: [id number] Name: CRYSTAL CRAMER Rep #: [id number] : 1955 F 62 From: Dipak Coulter MD PCP: You Parks MD Status: [facility] ER Study: Chest PA and Lateral Date of Exam: 07/19/18 Exam# [id number] Ordering Dr: Shreyas Mary MD STUDY: X-RAY [...] CC: SHREYAS MARY MD; You Parks MD Fiscal Technician: Signed TROP Collected: 07/10/2018 Status: F Source: [facility] 4:54 AM [facility] REPOSITORY TYPE CODE TESTS RESULT [...] ECG changes may help assess possibility of IA. *Other non-acute coronary syndrome conditions such as CHF, myocarditis, pulmonary emboli, sepsis and cardiac surgery could result in myocardial damage and increased troponin levels. Performed By: #### TROP, FES, MG, GFR, BMP #### [place] [address] BMP Collected: 07/10/2018 Status: F Source: [facility] 4:54 AM [facility] REPOSITORY TYPE CODE TESTS RESULT [...] mg/dL Calcium Lvl 9.0 Performed By: #### TROP, FES, MG, GFR, BMP #### [place] [address] MG Collected: 07/10/2018 Status: F Source: [facility] 4:54 AM [facility] REPOSITORY TYPE CODE TESTS RESULT OUT OF REFERENCE UNITS RANGE LAB MG(LOINC) 1.8-2.4 mg/dL Magnesium Lvl 1.9 Performed By: #### TROP, FES, MG, GFR, BMP #### [place] [address] FES Collected: 07/10/2018 Status: F Source: [facility] 4:54 AM [facility] REPOSITORY TYPE CODE TESTS RESULT OUT OF RANGE REFERENCE UNITS LAB FE(LOINC) 50-70 mcg/dL Low Iron 31 LAB IBC(LOINC) 250-450 mcg/dL TIBC 320 LAB FESAT(LOINC % ) Iron Sat 10 Performed By: #### TROP, FES, MG, GFR, BMP #### [place] [address] .GFR Collected: 07/10/2018 Status: F Source: [facility] 4:54 AM [facility] REPOSITORY TYPE CODE TESTS RESULT OUT OF REFERENCE UNITS RANGE LAB GFRAA(LOINC ml/min/1.73 ) sqm GFR 56 Togolese Result Comment: GFR Population mean for , [...] 15 mL/min/1.73 square meters Performed By: #### TROP, FES, MG, GFR, BMP #### [address] [address] DIMER Collected: 07/09/2018 Status: F Source: [facility] 7:57 PM [facility] REPOSITORY TYPE CODE TESTS RESULT [...] Performed By: #### DIMER #### [place] [address] [place], [place] [address] XR CHEST 2 VIEWS Observed: 07/09/2018 Status: F Source: [facility] 6:46 PM [facility] REPOSITORY ORIGINAL XR CHEST 2 VIEWS CLINICAL [...] PM CBC Collected: 07/09/2018 Status: F Source: [facility] 6:15 PM [facility] REPOSITORY TYPE CODE TESTS RESULT [...] #### GFR, PBNP, BMP, TROP #### [address] [address] #### ANEU, ADIFF, CBC #### [address] [address] .AUTO DIFF Collected: 07/09/2018 Status: F Source: [facility] 6:15 PM [facility] REPOSITORY TYPE CODE TESTS RESULT [...] By: #### GFR, PBNP, BMP, TROP #### [place] [address] #### ANEU, ADIFF, CBC #### [place] [address] [place], [place] [address] .NEUABS Collected: 07/09/2018 Status: F Source: [facility] 6:15 [facility] REPOSITORY TYPE CODE TESTS RESULT OUT OF REFERENCE UNITS RANGE LAB ANEU(LOINC) 2.85-6.16 10 3/mcL High Neutrophil, 11.50 Absolute Performed By: #### GFR, PBNP, BMP, TROP #### [place] [address] #### ANEU, ADIFF, CBC #### [place] [address] [place], [place] [address] BMP Collected: 07/09/2018 Status: F Source: [facility] 6:15 PM [facility] REPOSITORY TYPE CODE TESTS RESULT [...] #### GFR, PBNP, BMP, TROP #### [address] [address] #### ANEU, ADEMELI, CBC #### [place] [address] [address] .GFR Collected: 07/09/2018 Status: F Source: [facility] 6:15 PM [facility] REPOSITORY TYPE CODE TESTS RESULT OUT OF REFERENCE UNITS RANGE LAB GFRAA(LOINC ml/min/1.73 ) sqm GFR 57 Togolese Result Comment: GFR Population mean for , [...] #### GFR, PBNP, BMP, TROP #### [address] [address] #### ANEU, ADIFF, CBC #### [address] [address] TROP Collected: 07/09/2018 Status: F Source: [facility] 6:15 PM [facility] REPOSITORY TYPE CODE TESTS RESULT [...] ECG changes may help assess possibility of IA. *Other non-acute coronary syndrome conditions such as CHF, myocarditis, pulmonary emboli, sepsis and cardiac surgery could result in myocardial damage and increased troponin levels. Performed By: #### GFR, PBNP, BMP, TROP #### [place] [address] #### ANEU, ADIFF, CBC #### [address] [address] PBNP Collected: 07/09/2018 Status: F Source: [facility] 6:15 [facility] REPOSITORY TYPE CODE TESTS RESULT OUT OF REFERENCE UNITS RANGE LAB PBNP(LOINC) 0-125 pg/mL High N-Terminal 558 proBNP Result Comment: NT-proBNP results of less than 300 pg/mL effectively rules out acute congestive heart failure with 99% negative predictive value. Performed By: #### GFR, PBNP, BMP, TROP #### [place] [address] #### ANEU, ADIFF, CBC #### [address] [address] ECHO, COMPLETE W/ Observed: 07/04/2018 Status: F Source: [place] [facility] 4:32 PM [facility] REPOSITORY [facility] Cardiovascular [place] [address] Echo Complete W/ Contrast 07/04/18 1402 MR#: [id number] Acct: [id number] Name: CRYSTAL CRAMER Marissa Rep #: [id number] : 1955 62 From: Son Ellison MD Attending Dr: Son Ellison MD Status: REG CLI Ordering Dr: Son Ellison MD Date: 07/04/18 Location: [facility] Sex: F C Admitted: Reason For Study: [...] Dictated: 07/04/18 1402 Date Transcribed: 07/04/18 1631 Fiscal Technician: Signed BASIC METABOLIC Collected: 07/04/2018 Status: F Source: [facility] PROFILE (BMP) 3:17 PM [facility] REPOSITORY TYPE CODE TESTS RESULT OUT [...] GAP 10 Performed By: #### L500.2500 #### [facility] [address] [facility] [place], [address] BNP,B-TYPE NATRIURETIC Collected: 07/04/2018 Status: F Source: [place] [facility] 3:17 PM [facility] REPOSITORY TYPE CODE TESTS RESULT OUT OF RANGE REFERENCE UNITS LAB L503.6620 0-100 pg/mL Normal B-TYPE 69.2 LANDON PEP Performed By: #### L503.6620 #### [facility] [address] [facility] [place], [address] CHEST PA AND LATERAL Observed: 07/04/2018 Status: F Source: [place] 2:50 PM [facility] REPOSITORY [facility] Imaging Services [address] [place] [address] Chest PA and Lateral MR#: [id number] Acct: [id number] Name: CRYSTAL CRAMER Rep #: [id number] : 1955 F 62 From: Nick Sandoval MD PCP: You Parks MD Status: REG CLI Study: Chest PA and Lateral Date of Exam: 07/04/18 Exam# [id number] Ordering Dr: Son Ellison MD HISTORY: CHFCongestive [...] CC: Son Ellison MD; You Parks MD Fiscal Technician: Signed CARDIOLOGY VISIT Observed: 06/26/2018 Status: F Source: [place] RE[place] 5:31 PM [facility] REPOSITORY [facility] [place] [address] [facility] [address] [place] [address] OFFICE VISIT Date of Service: 06/26/18 MR#: [id number] Acct: [id number] Name: CRYSTAL CRAMER Rep #: [id number] : 1955 Provider: Son Ellison MD Age/Sex: 62/F [place] [facility] [place]: Signed HPI HPI Details: CRYSTAL CRAMER, [...] that in November of this year at [facility] she had a transthoracic echocardiogram performed. At that time her LV was thought to be normal with an LVEF of 55-60%. She notes more recently she was admitted to [facility] because of concerns of shortness of breath/dyspnea [...] mg PO DAILY 06/26/18 [History Confirmed 06/26/18] [facility] Medical History Congestive heart failure (Acute) [...] normal affect Supplemental Info Transthoracic echocardiogram: 10/28/2015: [facility] Interpretation Summary The study was technically difficult. Contrast injection was performed. Limited views were obtained. Left ventricular systolic function is normal. The estimated ejection fraction is 60 %. The left atrium is mildly enlarged. Bubble contrast study negative for right to left interatrial shunt. Stress test: 11/11/2014: [facility]: Pharmacologic stress nuclear imaging study: Considered equivocal [...] LVEF reported at 70% Cardiac catheterization: 09/20/2015: [facility] Final impression: 1. Elevated left ventricular end [...] long-term current use of insulin E11.9 06/26/18 6676 <Electronically signed by Son Ellison MD> Date Son Ellison MD Cosigner Signature: Date (if applicable) CC: You Parks MD 12 LEAD EKG PERFORMED Observed: 06/26/2018 Status: F Source: [facility] BY [facility] 1:08 PM [facility] REPOSITORY [facility] [address] [place] [address] 12 Lead EKG performed by [facility] 06/26/18 1308 MR#: [id number] Acct: [id number] Name: CRYSTAL CRAMER Rep #: [id number] : 1955 62 From: Son Ellison MD Attending Dr: Son Ellison MD Status: DEP AMB Ordering Dr: Son Ellison MD Date: 06/26/18 [place] [facility] Sex: F C Admitted: [facility]/12 Lead EKG performed by [facility] ECG Report Interpretation Somatic / motion artifactSinus Rhythm Leftward axisPoor R wave progressionElectronically signed on 06/26/2018 at 14:08 by Son Ellison Software Version [id number] 06/26/18 1411 Date Son Ellison MD CC: You Parks MD Date Dictated: 06/26/18 1308 Date Transcribed: 06/26/188 Fiscal Technician: PM Signed CBC Collected: 06/22/2018 Status: F Source: [facility] 5:00 AM [facility] REPOSITORY TYPE CODE TESTS [...] Performed By: #### ANEU, CBC, ADIFF #### [address] [address] #### BMP, GFR #### [address] [address] .AUTO DIFF Collected: 06/22/2018 Status: F Source: [facility] 5:00 AM [facility] REPOSITORY TYPE CODE [...] Performed By: #### ANEU, CBC, ADIFF #### [address] [address] #### BMP, GFR #### [address] [address] .NEUABS Collected: 06/22/2018 Status: F Source: [facility] 5:00 [facility] REPOSITORY TYPE CODE TESTS RESULT OUT OF REFERENCE UNITS RANGE LAB ANEU(LOINC) 2.85-6.16 10 3/mcL High Neutrophil, 12.40 Absolute Performed By: #### ANEU, CBC, ADIFF #### [place] [address] [place], [place] [address] #### BMP, GFR #### [address] [address] BMP Collected: 06/22/2018 Status: F Source: [facility] 5:00 [facility] REPOSITORY TYPE CODE TESTS RESULT OUT [...] Performed By: #### ANEU, CBC, ADIFF #### [address] [address] #### BMP, GFR #### [address] [address] .GFR Collected: 06/22/2018 Status: F Source: [facility] 5:00 [facility] REPOSITORY TYPE CODE TESTS RESULT OUT OF REFERENCE UNITS RANGE LAB GFRAA(LOINC ml/min/1.73 ) sqm GFR 52 Togolese Result Comment: GFR Population mean for , [...] Performed By: #### ANEU, CBC, ADIFF #### [address] [address] #### BMP, GFR #### [address] [address] XR CHEST 2 VIEWS Observed: 05/24/2018 Status: F Source: [facility] 3:46 AM [facility] REPOSITORY ORIGINAL Clinical [...] AM CBC Collected: 05/24/2018 Status: F Source: [facility] 3:37 AM [facility] REPOSITORY TYPE CODE TESTS RESULT [...] Performed By: #### CBC, ANEU, ADIFF #### [address] [address] #### GFR, PBNP, TROP, BMP #### [address] [address] .AUTO DIFF Collected: 05/24/2018 Status: F Source: [facility] 3:37 AM [facility] REPOSITORY TYPE CODE TESTS RESULT [...] Performed By: #### CBC, ANEU, ADIFF #### [address] [address] #### GFR, PBNP, TROP, BMP #### [place] [address] .NEUABS Collected: 05/24/2018 Status: F Source: [facility] 3:37 AM [facility] REPOSITORY TYPE CODE TESTS RESULT OUT OF REFERENCE UNITS RANGE LAB ANEU(LOINC) 2.85-6.16 10 3/mcL High Neutrophil, 11.60 Absolute Performed By: #### CBC, ANEU, ADIFF #### [place] [address] #### GFR, PBNP, TROP, BMP #### [place] [address] BMP Collected: 05/24/2018 Status: F Source: [facility] 3:37 AM [facility] REPOSITORY TYPE CODE TESTS RESULT [...] Performed By: #### CBC, ANEU, ADIFF #### [address] [address] #### GFR, PBNP, TROP, BMP #### [place] [address] .GFR Collected: 05/24/2018 Status: F Source: [facility] 3:37 AM [facility] REPOSITORY TYPE CODE TESTS RESULT OUT OF REFERENCE UNITS RANGE LAB GFRAA(LOINC ml/min/1.73 ) sqm GFR 44 Togolese Result Comment: GFR Population mean for , [...] #### CBC, ANEU, ADIFF #### [place] [address] [place], [place] [address] #### GFR, PBNP, TROP, BMP #### [address] [address] TROP Collected: 05/24/2018 Status: F Source: [facility] 3:37 AM [facility] REPOSITORY TYPE CODE TESTS RESULT [...] ECG changes may help assess possibility of IA. *Other non-acute coronary syndrome conditions such as CHF, myocarditis, pulmonary emboli, sepsis and cardiac surgery could result in myocardial damage and increased troponin levels. Performed By: #### CBC, ANEU, ADIFF #### [address] [address] #### GFR, PBNP, TROP, BMP #### [place] [address] PBNP Collected: 05/24/2018 Status: F Source: [facility] 3:37 AM [facility] REPOSITORY TYPE CODE TESTS RESULT OUT OF REFERENCE UNITS RANGE LAB PBNP(LOINC) 0-125 pg/mL High N-Terminal 259 proBNP Result Comment: NT-proBNP results of less than 300 pg/mL effectively rules out acute congestive heart failure with 99% negative predictive value. Performed By: #### CBC, ANEU, ADIFF #### [address] [address] #### GFR, PBNP, TROP, BMP #### [place] [address] EMERGENCY DEPARTMENT Observed: 05/23/2018 Status: F Source: [place] SUMMARY 3:38 PM [facility] REPOSITORY [facility] Medical Records Department [address] [place] [address] Emergency Department Summary 05/23/18 1439 MR#: [id number] Acct: [id number] Name: CRYSTAL CRAMER Rep #: [id number] : 1955 62 From: Mukul Rico MD [...] elbow contusion This note was generated with [employer] dictation software. It may contain incorrect words, [...] your Primary Care Provider. Call [facility] ([phone]) or report to the closest Emergency Room. Call 911 if necessary. 05/23/18 1538 <Electronically signed by Mukul Rico MD> Date Mukul Rico MD Cosigner Signature (If Indicated): Date CC: You Parks MD CHEST PA AND LATERAL Observed: 05/23/2018 Status: F Source: [facility] 1:58 PM [facility] REPOSITORY [facility] Imaging Services [address] [place] [address] Chest PA and Lateral MR#: [id number] Acct: [id number] Name: CRYSTAL CRAMER Rep #: [id number] : 1955 F 62 From: Bita Hunter MD PCP: You Parks MD Status: DEP ER Study: Chest PA and Lateral Date of Exam: 05/23/18 Exam# [id number] Ordering Dr: Mukul Rico MD STUDY: X-RAY [...] CC: Mukul Rico MD; You Parks MD Fiscal Technician: Signed ELBOW MIN 3 VIEWS Observed: 05/23/2018 Status: F Source: [place] 12:56 PM [facility] REPOSITORY [facility] Imaging Services [address] [place] [address] Elbow min 3 Views MR#: [id number] Acct: [id number] Name: CRYSTAL CRAMER Rep #: [id number] : 1955 F 62 From: Bita Hunter MD PCP: You Parks MD Status: PRE ER Study: Elbow min 3 Views Date of Exam: 05/23/18 Exam# [id number] Ordering Dr: Mukul Rico MD STUDY: X-RAY [...] CC: Mukul Rico MD; You Parks MD Fiscal Technician: Signed PROGRESS Observed: 05/23/2018 Status: COMPLETED Source: [place] 12:28 PM [facility] REPOSITORY HNO ID: [id number] Author: Carlyn Wu Service: (none) Author Type: [...] and lack of investigative tools available at [facility], recommend patient be seen at nearest ED, refused Squad friend present will transport[facility] 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 Carlyn Wu CNP Referring Provider: SELF [200] Allergies As of Date: 05/23/2018 Noted Allergy Reaction BACTRIM (SULFAMETHOXAZOLE-TRIMETH*07/31/2017 4 - Hives TORADOL (KETOROLAC) 03/22/2006 14 - Other: See Comments Comments: Increase BP CIPROFLOXACIN 06/10/2013 2 - Rash FLEXERIL (CYCLOBENZAPRINE) 06/10/2013 2 - Rash METFORMIN 06/28/2017 14 - Other: See Comments Comments: Migraines Date Reviewed: 05/23/2018 Reviewed by: Carole ([facility]) KENROY Henriquez - Fully Assessed Reason for [...] 05/23/18 CBC Collected: 05/20/2018 Status: F Source: [facility] 9:39 AM [facility] REPOSITORY TYPE CODE TESTS RESULT [...] Performed By: #### ANEU, ADEMELI, CBC #### [address] [address] #### PBNP, GFR, BMP #### [place] [address] .AUTO DIFF Collected: 05/20/2018 Status: F Source: [facility] 9:39 AM [facility] REPOSITORY TYPE CODE TESTS RESULT [...] Performed By: #### ANEU, ADIFF, CBC #### [place] [id number] #### PBNP, GFR, BMP #### [place] [address] .NEUABS Collected: 05/20/2018 Status: F Source: [facility] 9:39 AM [facility] REPOSITORY TYPE CODE TESTS RESULT OUT OF REFERENCE UNITS RANGE LAB ANEU(LOINC) 2.85-6.16 10 3/mcL High Neutrophil, 9.20 Absolute Performed By: #### ANEU, ADIFF, CBC #### [address] [address] #### PBNP, GFR, BMP #### [place] [address] BMP Collected: 05/20/2018 Status: F Source: [facility] 9:39 AM [facility] REPOSITORY TYPE CODE TESTS RESULT [...] Performed By: #### ANEU, ADIFF, CBC #### [address] [address] #### PBNP, GFR, BMP #### [place] [id number] [place] [address] .GFR Collected: 05/20/2018 Status: F Source: [facility] 9:39 AM [facility] REPOSITORY TYPE CODE TESTS RESULT OUT OF REFERENCE UNITS RANGE LAB GFRAA(LOINC ml/min/1.73 ) sqm GFR 39 Togolese Result Comment: GFR Population mean for , [...] meters Performed By: #### ANEUANGELIFF, CBC #### [address] [address] #### PBNP, GFR, BMP #### [address] [address] PBNP Collected: 05/20/2018 Status: F Source: [facility] 9:39 AM [facility] REPOSITORY TYPE CODE TESTS RESULT OUT OF REFERENCE UNITS RANGE LAB PBNP(LOINC) 0-125 pg/mL High N-Terminal 150 proBNP Result Comment: NT-proBNP results of less than 300 pg/mL effectively rules out acute congestive heart failure with 99% negative predictive value. Performed By: #### EMILY, FRED, CBC #### [address] [address] #### PBNP, GFR, BMP #### [place] [id number] CBC W/DIFF, AUTOMATED Collected: 05/16/2018 Status: F Source: [place] 10:47 AM [facility] REPOSITORY TYPE CODE TESTS RESULT OUT [...] 1.81 Performed By: #### L100.0100, L101.9900 #### [facility] [address] [facility] [id number] ERYTHROCYTE SED RATE Collected: 05/16/2018 Status: F Source: [place] 10:47 AM [facility] REPOSITORY TYPE CODE TESTS RESULT OUT OF RANGE REFERENCE UNITS LAB L102.0000 0-30 mm/hr High SED RATE 102 Performed By: #### L100.0100, L101.9900 #### [facility] [address] [facility] [id number] COMPREHENSIVE METABOLIC Collected: 05/16/2018 Status: F Source: [facility] 10:47 AM [facility] REPOSITORY TYPE CODE TESTS RESULT OUT [...] Performed By: #### L500.4050, L501.6710, L505.7010 #### [facility] [address] [place], [place], [address] CRP Collected: 05/16/2018 Status: F Source: [place] 10:47 AM [facility] REPOSITORY TYPE CODE TESTS RESULT OUT OF RANGE REFERENCE UNITS LAB L501.6710 0.0-3.0 mg/L High 45.40 C-REACTIVE PROT Result Comment: C-Reactive Protein (CRP) provides useful information for the diagnosis, therapy and monitoring of inflammatory processes and associated diseases. For the evaluation of Relative Risk for Cardiovascular Disease, a High Sensitivity CRP (HSCRP) should be ordered. Performed By: #### L500.4050, L501.6710, L505.7010 #### [facility] [address] [place], [address] RHEUMATOID FACTOR Collected: 05/16/2018 Status: F Source: [place] 10:47 AM [facility] REPOSITORY TYPE CODE TESTS RESULT OUT OF RANGE REFERENCE UNITS LAB L505.7010 <15 IU/mL Normal RHEUMATOID FAC < 10.0 Performed By: #### L500.4050, L501.6710, L505.7010 #### [facility] Laboratory [address] [place], [address] PELVIS 1 OR 2 VIEWS Observed: 05/16/2018 Status: F Source: [place] 10:47 AM [facility] REPOSITORY [facility] Imaging Services [address] [place] [address] Pelvis 1 or 2 Views MR#: [id number] Acct: [id number] Name: CRYSTAL CRAMER Rep #: [id number] : 1955 F 62 From: Clarence Skinner MD PCP: You Parks MD Status: REG CLI Study: Pelvis 1 or 2 Views Date of Exam: 05/16/18 Exam# [id number] Ordering Dr: Samra Jacques MD STUDY: X-RAY [...] CC: Samra Jacques MD; You Parks MD Fiscal Technician: Signed ANTINUCLEAR ANTIBODIES Collected: 05/16/2018 Status: F Source: [facility] 10:47 AM [facility] REPOSITORY TYPE CODE TESTS RESULT OUT OF RANGE REFERENCE UNITS LAB L3100.5475 Negative Normal Negative AMBER-DIRECT Result Comment: Performed at: [facility] [address] [id number] Disability Advocate: Salazar Palma PhD, Phone: [phone] Performed By: #### L3100.5475 #### [facility] (refer to report for specific site) refer to report for address and phone number HEPATITIS B SURFACE Collected: 05/16/2018 Status: F Source: [facility] 10:47 AM [facility] REPOSITORY TYPE CODE TESTS RESULT OUT OF RANGE REFERENCE UNITS LAB L3100.0400 Negative Normal HB Negative SURF AG Result Comment: Performed at: [facility] [address] [id number] Disability Advocate: Salazar Palma PhD, Phone: [phone] Performed at: - [address] [id number] Disability Advocate: Trevon Moncada PhD, Phone: [phone] Performed at: - [address] [id number] Disability Advocate: Nabeel Hendrix MD, Phone: [phone] Performed By: #### L3100.0390, L3100.0528, L3100.0625, L3410.1400, L4600.0100 #### [facility] (refer to report for specific site) refer to report for address and phone number HEP B SURFACE Collected: 05/16/2018 Status: F Source: [facility] ANTIBODIES 10:47 AM [facility] REPOSITORY TYPE CODE TESTS RESULT OUT [...] 05/16/2018 Status: F Source: [place] 10:47 AM [facility] REPOSITORY TYPE CODE TESTS RESULT OUT OF RANGE REFERENCE UNITS LAB L3100.0650 0.0-0.9 s/co ratio Normal HEP C AB 0.4 Result Comment: Negative: < 0.8 Indeterminate: 0.8 - 0.9 Positive: > 0.9 The CDC recommends that a positive HCV antibody result be followed up with a HCV Nucleic Acid Amplification test (815028). Performed By: #### L3100.0390, L3100.0528, L3100.0625, L3410.1400, L4600.0100 #### [facility] (refer to report for specific site) refer to report for address and phone number HLA B27 Collected: 05/16/2018 Status: F Source: [place] 10:47 AM [facility] REPOSITORY TYPE CODE TESTS RESULT OUT OF RANGE REFERENCE UNITS LAB L3410.1500 . Normal HLA Negative B27 Result Comment: HLA-B*27 Negative B27 allele interpretation for all loci based on IMGT/HLA database version 3.27 This test was developed and its performance characteristics determined by [facility]. It has not been cleared or approved by the Food and Drug Administration. [facility] CLIA ID Number [id number] This test was performed using PCR (Polymerase [...] 05/16/2018 Status: F Source: [place] 10:47 AM [facility] REPOSITORY TYPE CODE TESTS RESULT OUT OF RANGE REFERENCE UNITS LAB L4600.0100 0-19 units Normal ANTI-CCP 6 [id number] Result Comment: Negative <20 Weak positive 20 - 39 Moderate positive 40 - 59 Strong positive >59 Performed By: #### L3100.0390, L3100.0528, L3100.0625, L3410.1400, L4600.0100 #### [facility] (refer to report for specific site) refer to report for address and phone number XR CHEST 2 VIEWS Observed: 05/15/2018 Status: F Source: [facility] 7:30 AM [facility] REPOSITORY ORIGINAL Clinical history: Short of breath. [...] AM CBC Collected: 05/15/2018 Status: F Source: [facility] 5:12 AM [facility] REPOSITORY TYPE CODE TESTS RESULT [...] Performed By: #### ANEU, CBC, ADIFF #### [address] [address] #### FES, MG, GFR, BMP #### [address] [address] .AUTO DIFF Collected: 05/15/2018 Status: F Source: [facility] 5:12 AM [facility] REPOSITORY TYPE CODE TESTS RESULT [...] Performed By: #### ANEU, CBC, ADIFF #### [address] [address] #### FES, MG, GFR, BMP #### [address] [address] .NEUABS Collected: 05/15/2018 Status: F Source: [facility] 5:12 AM [facility] REPOSITORY TYPE CODE TESTS RESULT OUT OF REFERENCE UNITS RANGE LAB ANEU(LOINC) 2.85-6.16 10 3/mcL High Neutrophil, 8.00 Absolute Performed By: #### ANEU, CBC, ADIFF #### [address] [address] #### FES, MG, GFR, BMP #### [address] [address] BMP Collected: 05/15/2018 Status: F Source: [facility] 5:12 AM [facility] REPOSITORY TYPE CODE TESTS RESULT [...] Performed By: #### ANEU, CBC, ADIFF #### [address] [address] #### FES, MG, GFR, BMP #### [address] [address] MG Collected: 05/15/2018 Status: F Source: [facility] 5:12 AM [facility] REPOSITORY TYPE CODE TESTS RESULT OUT OF REFERENCE UNITS RANGE LAB MG(LOINC) 1.8-2.4 mg/dL Low Magnesium Lvl 1.6 Performed By: #### ANEU, CBC, ADIFF #### [address] [address] #### FES, MG, GFR, BMP #### [address] [address] FES Collected: 05/15/2018 Status: F Source: [facility] 5:12 AM [facility] REPOSITORY TYPE CODE TESTS RESULT OUT OF RANGE REFERENCE UNITS LAB FE(LOINC) 50-70 mcg/dL Low Iron 18 LAB IBC(LOINC) 250-450 mcg/dL TIBC 284 LAB FESAT(LOINC % ) Iron Sat 6 Performed By: #### ANEU, CBC, ADIFF #### [place] [address] [place], [place] [address] #### FES, MG, GFR, BMP #### [address] [address] .GFR Collected: 05/15/2018 Status: F Source: [facility] 5:12 AM [facility] REPOSITORY TYPE CODE TESTS RESULT OUT OF REFERENCE UNITS RANGE LAB GFRAA(LOINC ml/min/1.73 ) sqm GFR 46 Togolese Result Comment: GFR Population mean for , [...] #### ANEU, CBC, ADIFF #### [address] [place], [place] [address] #### FES, MG, GFR, BMP #### [address] [address] BMP Collected: 05/14/2018 Status: F Source: [facility] 11:12 AM [facility] REPOSITORY TYPE CODE TESTS RESULT [...] Performed By: #### BMP, GFR #### [address] [address] .GFR Collected: 05/14/2018 Status: F Source: [facility] 11:12 AM [facility] REPOSITORY TYPE CODE TESTS RESULT OUT OF REFERENCE UNITS RANGE LAB GFRAA(LOINC ml/min/1.73 ) sqm GFR 44 Togolese Result Comment: GFR Population mean for , [...] Performed By: #### BMP, GFR #### [address] [address] CBC Collected: 05/13/2018 Status: F Source: [facility] 2:41 [facility] REPOSITORY TYPE CODE [...] #### ADIFF, CBC, ANEU #### [address] [place], [place] [address] #### GFR, PBNP, BMP #### [address] [address] .AUTO DIFF Collected: 05/13/2018 Status: F Source: [facility] 2:41 [facility] REPOSITORY TYPE CODE [...] #### FRED, CBC, ANEU #### [address] [place], [place] [address] #### GFR, PBNP, BMP #### [place] [address] .NEUABS Collected: 05/13/2018 Status: F Source: [facility] 2:41 [facility] REPOSITORY TYPE CODE TESTS RESULT OUT OF REFERENCE UNITS RANGE LAB ANEU(LOINC) 2.85-6.16 10 3/mcL High Neutrophil, 9.70 Absolute Performed By: #### FRED, CBC, ANEU #### [address] [place], [place] [address] #### GFR, PBNP, BMP #### [place] [address] BMP Collected: 05/13/2018 Status: F Source: [facility] 2:41 [facility] REPOSITORY TYPE CODE [...] Performed By: #### ADEMELI, CBC, ANEU #### [facility] [address] [place], [place] [address] #### GFR, PBNP, BMP #### [address] [address] .GFR Collected: 05/13/2018 Status: F Source: [facility] 2:41 PM [facility] REPOSITORY TYPE CODE TESTS RESULT OUT OF REFERENCE UNITS RANGE LAB GFRAA(LOINC ml/min/1.73 ) sqm GFR 50 Togolese Result Comment: GFR Population mean for , [...] #### ADIFF, CBC, ANEU #### [address] [place], [place] [address] #### GFR, PBNP, BMP #### [facility] [address] [place] [address] PBNP Collected: 05/13/2018 Status: F Source: [facility] 2:41 PM [facility] REPOSITORY TYPE CODE TESTS RESULT OUT OF REFERENCE UNITS RANGE LAB PBNP(LOINC) 0-125 pg/mL High N-Terminal 584 proBNP Result Comment: NT-proBNP results of less than 300 pg/mL effectively rules out acute congestive heart failure with 99% negative predictive value. Performed By: #### ADIFF, CBC, ANEU #### [address] [place], [place] [address] #### GFR, PBNP, BMP #### [place] [id number] [place], [place] [address] XR CHEST 2 VIEWS Observed: 05/06/2018 Status: F Source: [facility] 1:41 PM [facility] REPOSITORY ORIGINAL XR CHEST 2 VIEWS CLINICAL [...] PM CBC Collected: 05/06/2018 Status: F Source: [facility] 1:22 PM [facility] REPOSITORY TYPE CODE TESTS RESULT [...] Performed By: #### ANEU, ADIFF, CBC #### [address] [address] #### GFR, BMP, PBNP #### [address] [address] .AUTO DIFF Collected: 05/06/2018 Status: F Source: [facility] 1:22 PM [facility] REPOSITORY TYPE CODE TESTS RESULT [...] Performed By: #### ANEU, ADIFF, CBC #### [address] [address] #### GFR, BMP, PBNP #### [address] [address] .NEUABS Collected: 05/06/2018 Status: F Source: [facility] 1:22 PM [facility] REPOSITORY TYPE CODE TESTS RESULT OUT OF REFERENCE UNITS RANGE LAB ANEU(LOINC) 2.85-6.16 10 3/mcL High Neutrophil, 8.90 Absolute Performed By: #### ANEU, ADIFF, CBC #### [address] [address] #### GFR, BMP, PBNP #### [address] [address] BMP Collected: 05/06/2018 Status: F Source: [facility] 1:22 PM [facility] REPOSITORY TYPE CODE TESTS RESULT [...] Performed By: #### ANEU, ADIFF, CBC #### [address] [address] #### GFR, BMP, PBNP #### [address] [address] .GFR Collected: 05/06/2018 Status: F Source: [facility] 1:22 PM [facility] REPOSITORY TYPE CODE TESTS RESULT OUT OF REFERENCE UNITS RANGE LAB GFRAA(LOINC ml/min/1.73 ) sqm GFR 57 Togolese Result Comment: GFR Population mean for , [...] Performed By: #### FRED DIAZ, CBC #### [address] [address] #### GFR, BMP, PBNP #### [place] [address] PBNP Collected: 05/06/2018 Status: F Source: [facility] 1:22 PM [facility] REPOSITORY TYPE CODE TESTS RESULT OUT OF REFERENCE UNITS RANGE LAB PBNP(LOINC) 0-125 pg/mL High N-Terminal 284 proBNP Result Comment: NT-proBNP results of less than 300 pg/mL effectively rules out acute congestive heart failure with 99% negative predictive value. Performed By: #### EMILY, ADEMELI, CBC #### [address] [address] #### GFR, BMP, PBNP #### [place] [id number] 12 LEAD ELECTROCARDIOGRAM Observed: 04/22/2018 Status: F Source: [place] 1:36 PM [facility] REPOSITORY [facility] Cardiovascular [place] [address] 12 Lead EKG 04/17/18 2307 MR#: [id number] Acct: [id number] Name: CRYSTAL CRAMER Rep #: [id number] : 1955 62 From: Mansoor Hassan MD [...] Normal ECG Confirmed by MANSOOR HASSAN ([id number]), proposal editor MAIKEL MULLEN ([id number]) on 04/22/2018 1:35:57 PM Referred By: JONATHAN Confirmed By:MANSOOR HASSAN 04/22/18 1336 Date Mansoor Hassan MD CC: You Parks MD; [place] Loya Signed EMERGENCY DEPARTMENT Observed: 04/18/2018 Status: F Source: [place] SUMMARY 8:13 AM [facility] REPOSITORY [facility] Medical Records Department [address] [place] [address] Emergency Department Summary 04/17/18 2313 MR#: [id number] Acct: [id number] Name: CRYSTAL CRAMER Rep #: [id number] : 1955 62 From: [place] Mortensen PCP: [...] respiratory infection This note was generated with [employer] dictation software. It may contain incorrect words, spelling, and punctuation that were not noted in review of the chart prior to signing ED Disposition - Plan for ED Patient: Disposition: Home or Assisted Living Chief Complaint: Nausea/Vomiting Diagnosis: Nausea and vomiting, Upper respiratory infection Instructions: ED Nausea Vomiting, ED URI Viral Referrals: Yuo Parks MD [Primary Care Provider] - 3-5 Days if not improving What to do if you have Problems For any increased pain, shortness of breath, bleeding, nausea or vomiting, chest pain, or any unexpected problems, contact your Primary Care Provider. Call [facility] ([phone]) or report to the closest Emergency Room. Call 911 if necessary. 04/18/18 0349 <Electronically signed by [place] Mortensen> Date [place] Mortensen Cosigner Signature (If Indicated): Date CC: You Parks MD CTA CHEST W/WO Observed: 04/18/2018 Status: F Source: [place] CONTRAST 5:10 AM [facility] REPOSITORY [facility] Imaging Services [address] [place] [address] CTA Chest W/WO Contrast MR#: [id number] Acct: [id number] Name: CRYSTAL CRAMER Rep #: [id number] : 1955 F 62 From: Tristan De La Garza MD PCP: You Parks MD Status: REG ER Study: CTA Chest W/WO Contrast Date of Exam: 04/18/18 Exam# [id number] Ordering Dr: [place] Loya DO STUDY: CTA [...] La Garza MD at 8:36 EDT Tel [phone], Service support , CC: You Parks MD; [place] Loya Fiscal Technician: Signed CBC W/DIFF, AUTOMATED Collected: 04/17/2018 Status: F Source: [place] 11:15 PM [facility] REPOSITORY TYPE CODE TESTS RESULT OUT [...] Lymph 1.84 Performed By: #### L100.0100 #### [facility] [address] [place], [place], [id number] LIVER PROFILE Collected: 04/17/2018 Status: F Source: [place] 11:15 PM [facility] REPOSITORY TYPE CODE TESTS RESULT OUT [...] 0.28 Performed By: #### L500.3400, L500.4050 #### [facility] [address] [place], [place], [id number] COMPREHENSIVE METABOLIC Collected: 04/17/2018 Status: F Source: [facility] 11:15 PM [facility] REPOSITORY TYPE CODE TESTS RESULT OUT [...] 9 Performed By: #### L500.3400, L500.4050 #### [facility] [address] [facility] [place], [address] LIPASE Collected: 04/17/2018 Status: F Source: [place] 11:15 PM [facility] REPOSITORY TYPE CODE TESTS RESULT OUT OF RANGE REFERENCE UNITS LAB L501.2450 73-393 U/L Normal LIPASE 89 Performed By: #### L501.2450 #### [facility] [address] [place], [address] ACUTE ABDOMEN INC Observed: 04/17/2018 Status: F Source: [place] CHEST 11:13 PM [facility] REPOSITORY [facility] Imaging Services [address] [place] [address] Acute Abdomen Inc Chest MR#: [id number] Acct: [id number] Name: CRYSTAL CRAMER Rep #: [id number] : 1955 F 62 From: Ashwini Russo MD PCP: You Parks MD Status: REG ER Study: Acute Abdomen Inc Chest Date of Exam: 04/17/18 Exam# [id number] Ordering Dr: [place] Loya DO STUDY: X-RAY [...] Russo MD at 0:23 EDT Tel Direct: [phone], Service support , CC: You Parks MD; [place] Loya Fiscal Technician: Signed 12 LEAD ELECTROCARDIOGRAM Observed: 04/10/2018 Status: F Source: [place] 12:55 PM [facility] REPOSITORY [facility] [place] [address] 12 Lead EKG 04/06/18 0945 MR#: [id number] Acct: [id number] Name: CRYSTAL CRAMER Rep #: [id number] : 1955 62 From: Son Ellison MD [...] ECG Confirmed by JOSE MANUEL CURRY, SON ([id number]), proposal editor MAIKEL MULLEN ([id number]) on 04/10/2018 12:55:23 PM Referred By: NADIRA Confirmed By:SON ELLISON MD 04/10/18 1255 Date Son Ellison MD CC: Mansoor Hawyood DO; You Parks MD Signed EMERGENCY DEPARTMENT Observed: 04/09/2018 Status: F Source: [place] SUMMARY 4:31 PM [facility] REPOSITORY [facility] Medical Records Department [address] [place] [address] Emergency Department Summary 04/09/18 1055 MR#: [id number] Acct: [id number] Name: CRYSTAL CRAMER Rep #: [id number] : 1955 62 From: Ray Perez MD [...] and vomiting This note was generated with [employer] software. It may contain incorrect words, spelling, [...] problems, contact your Primary Care Provider. Call [facility] ([phone]) or report to the closest Emergency Room. Call 911 if necessary. 04/09/18 1631 <Electronically signed by Ray Perez MD> Date Ray Perez MD Cosigner Signature (If Indicated): Date CC: You Parks MD DISCHARGE INSTRUCTION Observed: 04/09/2018 Status: F Source: [place] 4:31 PM [facility] REPOSITORY [facility] Medical Records Department [address] [place] [address] Discharge Instruction 04/09/18 1232 MR#: [id number] Acct: [id number] Name: CRYSTAL CRAMER Rep #: [id number] : 1955 62 From: Ray Perez MD PCP: You aPrks MD Status: DEP ER ED Disposition - [...] your Primary Care Provider. Call [facility] ([phone]) or report to the closest Emergency Room. Call 911 if necessary. 04/09/18 1631 <Electronically signed by Ray Perez MD> Date Ray Perez MD Cosigner Signature (If Indicated): Date CC: You Parks MD EMERGENCY DEPARTMENT Observed: 04/06/2018 Status: F Source: [place] SUMMARY 4:39 PM [facility] REPOSITORY [facility] Medical Records Department [address] [place] [address] Emergency Department Summary 04/06/18 0929 MR#: [id number] Acct: [id number] Name: CRYSTAL CRAMER Rep #: [id number] : 1955 62 From: Mansoor Haywood DO [...] wall pain This note was generated with [employer] dictation software. It may contain incorrect words, [...] problems, contact your Primary Care Provider. Call [facility] ([phone]) or report to the closest Emergency Room. Call 911 if necessary. 04/06/18 4292 <Electronically signed by Mansoor Haywood DO> Date Mansoor Franklin Signature (If Indicated): Date CC: You Parks MD URGENT CARE VISIT Observed: 03/25/2018 Status: F Source: [place] REPORT 5:55 PM [facility] REPOSITORY [facility] [address] [place] [address] [address] [place] [address] OFFICE VISIT Date of Service: 03/24/18 MR#: [id number] Acct: [id number] Name: CRYSTAL CRAMER Rep #: [id number] : 1955 Provider: Dwayne STEVENSON Age/Sex: 62/F Location: [facility] Status: Signed Intake Vital Signs03/24/18 Height 5 [...] 03/24/2018 Status: F Source: [place] 3:20 PM [facility] HOSPITAL REPOSITORY [facility] Imaging Services [address] [place] [address] Chest PA and Lateral MR#: [id number] Acct: [id number] Name: CRYSTAL CRAMER Rep #: [id number] : 1955 F 62 From: William Gupta DO PCP: You Parks MD Status: REG CLI Study: Chest PA and Lateral Date of Exam: 03/24/18 Exam# [id number] Ordering Dr: Dwayne Trivedi STUDY: X-RAY CHEST [...] William Gupta DO at 18:43 EDT Tel [phone], Service support , CC: Dwayne STEVENSON; You Parsk MD Fiscal Technician: Signed 12 LEAD ELECTROCARDIOGRAM Observed: 03/14/2018 Status: F Source: [place] 1:28 PM [facility] HOSPITAL REPOSITORY [facility] Cardiovascular Services [address] [place] [address] 12 Lead EKG 03/12/18 1757 MR#: [id number] Acct: [id number] Name: CRYSATL CRAMER Rep #: [id number] : 1955 62 From: Son Ellison MD [...] Confirmed by JOSE MANUEL CURRY, SON ([id number]), proposal editor MAIKEL MULLEN ([id number]) on 03/14/2018 1:28:23 PM Referred By: SIMI Confirmed By:SON ELLISON MD 03/14/18 1328 Date Son Ellison MD CC: Ashwini Monson MD; You Parks MD Signed EMERGENCY DEPARTMENT Observed: 03/13/2018 Status: F Source: [place] SUMMARY 1:05 AM [facility] REPOSITORY [facility] Medical Records Department [address] [place] [address] Emergency Department Summary 03/12/182121 MR#: [id number] Acct: [id number] Name: CRYSTAL CRAMER Rep #: [id number] : 1955 62 From: Ashwini Monson MD [...] pain. Past history significant for prior stroke, IA, diabetes, hypertension, high cholesterol, fibromyalgia, paroxysmal A. [...] Impression: Dyspnea This note was generated with [employer] dictation software. It may contain incorrect words, [...] problems, contact your Primary Care Provider. Call [facility] ([phone]) or report to the closest Emergency Room. Call 911 if necessary. 03/13/18 0105 <Electronically signed by Ashwini Monson MD> Date Ashwini Monson MD Cosigner Signature (If Indicated): Date CC: You Parks MD DISCHARGE INSTRUCTION Observed: 03/12/2018 Status: F Source: [place] 9:23 PM [facility] REPOSITORY [facility] Medical Records Department [address] [place] [address] Discharge Instruction 03/12/182121 MR#: [id number] Acct: [id number] Name: CRYSTAL CRAMER Rep #: [id number] : 1955 62 From: Ashwini Monson MD [...] your Primary Care Provider. Call [facility] ([phone]) or report to the closest Emergency Room. Call 911 if necessary. 03/12/182122 <Electronically signed by Ashwini Monson MD> Date Ashwini Monson MD Cosigner Signature (If Indicated): Date CC: You Parks MD CBC W/DIFF, AUTOMATED Collected: 03/12/2018 Status: F Source: [place] 6:32 PM [facility] REPOSITORY TYPE CODE TESTS RESULT OUT [...] Lymph 1.82 Performed By: #### L100.0100 #### [facility] [address] [place], [address] BASIC METABOLIC Collected: 03/12/2018 Status: F Source: [place] PROFILE ([facility]) 6:32 PM [facility] REPOSITORY TYPE CODE TESTS RESULT OUT [...] GAP 7 Performed By: #### L500.2500 #### [facility] [address] [facility] [place], [address] BNP,B-TYPE NATRIURETIC Collected: 03/12/2018 Status: F Source: [place] PEPTIDE 6:32 PM [facility] REPOSITORY TYPE CODE TESTS RESULT OUT OF RANGE REFERENCE UNITS LAB L503.6620 0-100 pg/mL Normal B-TYPE 51.5 [place] PEP Performed By: #### L503.6620 #### [facility] [address] [facility] [place], [address] CHEST PA AND LATERAL Observed: 03/12/2018 Status: F Source: [place] 5:45 PM [facility] REPOSITORY [facility] Imaging Services [address] [place] [address] Chest PA and Lateral MR#: [id number] Acct: [id number] Name: CRYSTAL CRAMER Rep #: [id number] : 1955 F 62 From: Ray Joy MD PCP: You Parks MD Status: REG ER Study: Chest PA and Lateral Date of Exam: 03/12/18 Exam# [id number] Ordering Dr: Ashwini Monson MD STUDY: X-RAY [...] CC: Ashwini Monson MD; You Parks MD Fiscal Technician: Signed DISCHARGE SUMMARY Observed: 03/11/2018 Status: F Source: [place] 3:15 PM [facility] REPOSITORY [facility] Medical Records Department [address] [place] [address] Discharge Summary 03/11/18 1134 MR#: [id number] Acct: [id number] Name: CRYSTAL CRAMER Rep #: [id number] : 1955 62 From: Qian Guerrero MD PCP: You Parks MD Status: DIS IN Y Location: MS3 ML489-5 Discharge Date and Diagnosis Date of Admission: [...] applicable Code Visit Inpatient E AND M: 35465 Disch Hosp 03/11/18 1515 <Electronically signed by Qian Guerrero MD> Date Qian Guerrero MD Cosigner Signature (if applicable): Date CC: Qian Guerrero MD; You Parks MD Signed BEDSIDE GLUCOSE Collected: 03/11/2018 Status: F Source: [place] 11:53 [facility] REPOSITORY TYPE CODE TESTS RESULT OUT OF REFERENCE UNITS RANGE LAB L501.080 70-110 mg/dL High BEDSIDE GLU 224 Result Comment: MANAGEMENT OF PATIENT CARE PER NURSING PROTOCOL Performed By: #### L501.080 #### [facility] Laboratory Point of Care [address] [facility] [place] [address] DISCHARGE INSTRUCTION Observed: 03/11/2018 Status: F Source: [place] 11:33 [facility] REPOSITORY [facility] Medical Records Department [address] [place] [address] Instructions for Home/Discharge Instructions 03/11/18 1127 MR#: [id number] Acct: [id number] Name: CRYSTAL CRAMER Rep #: [id number] : 1955 62 From: Qian Guerrero MD [...] culture results. You are referred to an saddle stitcher. Continue to monitor your blood sugars. Allergies/Adverse [...] 03/11/2018 Status: F Source: [place] 7:48 AM [facility] REPOSITORY TYPE CODE TESTS RESULT OUT OF RANGE REFERENCE UNITS LAB L501.080 70-110 mg/dL Normal BEDSIDE GLU 97 Result Comment: MANAGEMENT OF PATIENT CARE PER NURSING PROTOCOL Performed By: #### L501.080 #### [facility] Laboratory Point of Care [facility] [address] [place], [place] [address] BASIC METABOLIC Collected: 03/11/2018 Status: F Source: [place] PROFILE (BMP) 5:35 AM [facility] REPOSITORY TYPE CODE TESTS RESULT OUT [...] GAP 7 Performed By: #### L500.2500 #### [facility] [address] [place], [address] CBC W/DIFF, AUTOMATED Collected: 03/11/2018 Status: F Source: [place] 5:35 AM [facility] REPOSITORY TYPE CODE TESTS RESULT OUT [...] Lymph 2.73 Performed By: #### L100.0100 #### [facility] [address] [facility] [place], [place], [address] BEDSIDE GLUCOSE Collected: 03/10/2018 Status: F Source: [place] 9:39 PM [facility] REPOSITORY TYPE CODE TESTS RESULT OUT OF REFERENCE UNITS RANGE LAB L501.080 70-110 mg/dL High BEDSIDE GLU 135 Result Comment: MANAGEMENT OF PATIENT CARE PER NURSING PROTOCOL Performed By: #### L501.080 #### [facility] Laboratory Point of Care [address] [place] [address] BEDSIDE GLUCOSE Collected: 03/10/2018 Status: F Source: [place] 4:23 PM [facility] REPOSITORY TYPE CODE TESTS RESULT OUT OF REFERENCE UNITS RANGE LAB L501.080 70-110 mg/dL High BEDSIDE GLU 303 Result Comment: MANAGEMENT OF PATIENT CARE PER NURSING PROTOCOL Performed By: #### L501.080 #### [facility] Point of Care [address] [place] [address] BEDSIDE GLUCOSE Collected: 03/10/2018 Status: F Source: [place] 11:20 AM [facility] REPOSITORY TYPE CODE TESTS RESULT OUT OF REFERENCE UNITS RANGE LAB L501.080 70-110 mg/dL High BEDSIDE GLU 299 Result Comment: MANAGEMENT OF PATIENT CARE PER NURSING PROTOCOL Performed By: #### L501.080 #### [facility] Point of Care [address] [place] [address] BASIC METABOLIC Collected: 03/10/2018 Status: F Source: [place] PROFILE (BMP) 5:10 AM [facility] REPOSITORY Order Comment: 'TROP' Serial specimen #1, [...] 9 Performed By: #### L500.2500, L501.4010 #### [facility] [address] [place], [address] TROPONIN-I Collected: 03/10/2018 Status: F Source: [place] 5:10 AM [facility] REPOSITORY Order Comment: 'TROP' Serial specimen #1, #2 or #3: 3 TYPE CODE TESTS RESULT OUT OF RANGE REFERENCE UNITS LAB L501.4010 <0.045 ng/mL Normal < 0.015 TROPONIN-I Result Comment: TROPONIN-I EXPECTED VALUES <0.045 Negative 0.045 - 0.590 Consistent with Cardiac Damage > OR = 0.600 Critical Value Not every elevated troponin is indicative of IA. These values should be used with clinical judgement in examining the patient's clinical picture for diagnosis. To establish a diagnosis of IA versus myocardial injury, there must be a demonstrated rise and/or fall in the troponin values, in addition to ischemic symptoms, EKG changes, new regional wall motion abnormality, and/or angiographical evidence. PLEASE NOTE: REFERENCE RANGES EDITED 17 Performed By: #### L500.2500, L501.4010 #### [facility] [place], [address] CBC W/DIFF, AUTOMATED Collected: 03/10/2018 Status: F Source: [place] 5:10 AM [facility] REPOSITORY TYPE CODE TESTS RESULT OUT [...] Lymph 2.19 Performed By: #### L100.0100 #### [facility] [address] [facility] [place], [address] HISTORY AND PHYSICAL Observed: 03/10/2018 Status: F Source: [place] EXAM 4:07 AM [facility] REPOSITORY [facility] Medical Records Department [address] [place] [address] History and Physical 03/09/182102 MR#: [id number] Acct: [id number] Name: CRYSTAL CRAMER Rep #: [id number] : 1955 62 From: Jose Oseguera MD PCP: You Parks MD Status: ADM SIMONA Y Location: [place] [address] Problem List (1) Fibromyalgia Status: Chronic (2) [...] History (Last Reviewed 03/10/18 @ 03:57 by oJse Oseguera MD) Diabetes mellitus E11.9 Diverticulitis K57.92 [...] 03/10/2018 Status: F Source: [place] 1:50 AM [facility] REPOSITORY Order Comment: 'TROP' Serial specimen #1, #2 or #3: 2 TYPE CODE TESTS RESULT OUT OF RANGE REFERENCE UNITS LAB L501.4010 <0.045 ng/mL Normal < 0.015 TROPONIN-I Result Comment: TROPONIN-I EXPECTED VALUES <0.045 Negative 0.045 - 0.590 Consistent with Cardiac Damage > OR = 0.600 Critical Value Not every elevated troponin is indicative of IA. These values should be used with clinical judgement in examining the patient's clinical picture for diagnosis. To establish a diagnosis of IA versus myocardial injury, there must be a demonstrated rise and/or fall in the troponin values, in addition to ischemic symptoms, EKG changes, new regional wall motion abnormality, and/or angiographical evidence. PLEASE NOTE: REFERENCE RANGES EDITED 17 Performed By: #### L501.4010 #### [facility] [address] [place], [address] CHEST 1 VIEW Observed: 03/10/2018 Status: F Source: [place] (PORTABLE) 12:00 AM [facility] REPOSITORY [facility] Imaging Services [address] [place] [address] Chest 1 View (Portable) MR#: [id number] Acct: [id number] Name: CRYSTAL CRAMER Marissa Rep #: [id number] : 1955 F 62 From: Btia Hunter MD PCP: You Parks MD Status: ADM SIMONA Study: Chest 1 View (Portable) Date of Exam: 03/10/18 Exam# [id number] Ordering Dr: Jose Oseguera MD STUDY: X-RAY [...] CC: Jose Oseguera MD; You Parks MD Fiscal Technician: Signed STOOL Observed: 03/09/2018 Status: F Source: [place] LACTOFERRIN/WBC 11:54 PM [facility] REPOSITORY Stool Lacto/WBC Normal Reference Range = Negative Fecal WBC Lactoferrin Positive: Fecal WBC Lactoferrin present Performed By: #### M100.0605 #### [facility] [address] [place], [address] LACTIC ACID Collected: 03/09/2018 Status: F Source: [place] 11:25 PM [facility] REPOSITORY TYPE CODE TESTS RESULT OUT OF RANGE REFERENCE UNITS LAB L503.6005 0.4-2.0 mmol/L Normal LACTIC ACID 1.8 Performed By: #### L503.6005 #### [facility] [address] [place], [address] TROPONIN-I Collected: 03/09/2018 Status: F Source: [place] 10:56 PM [facility] REPOSITORY Order Comment: 'TROP' Serial specimen #1, #2, #3, or #4: 1 TYPE CODE TESTS RESULT OUT OF RANGE REFERENCE UNITS LAB L501.4010 <0.045 ng/mL Normal < 0.015 TROPONIN-I Result Comment: TROPONIN-I EXPECTED VALUES <0.045 Negative 0.045 - 0.590 Consistent with Cardiac Damage > OR = 0.600 Critical Value Not every elevated troponin is indicative of IA. These values should be used with clinical judgement in examining the patient's clinical picture for diagnosis. To establish a diagnosis of IA versus myocardial injury, there must be a demonstrated rise and/or fall in the troponin values, in addition to ischemic symptoms, EKG changes, new regional wall motion abnormality, and/or angiographical evidence. PLEASE NOTE: REFERENCE RANGES EDITED 17 Performed By: #### L501.4010 #### [facility] [address] [place], [address] BEDSIDE GLUCOSE Collected: 03/09/2018 Status: F Source: [place] 10:44 PM [facility] REPOSITORY TYPE CODE TESTS RESULT OUT OF REFERENCE UNITS RANGE LAB L501.080 70-110 mg/dL High BEDSIDE GLU 275 Result Comment: MANAGEMENT OF PATIENT CARE PER NURSING PROTOCOL Performed By: #### L501.080 #### [facility] Point of Care [address] [place] [address] EMERGENCY DEPARTMENT Observed: 03/09/2018 Status: F Source: [place] SUMMARY 7:38 PM [facility] REPOSITORY [facility] Medical Records Department [address] [place] [address] Emergency Department Summary 03/09/18 1541 MR#: [id number] Acct: [id number] Name: CRYSTAL CRAMER Rep #: [id number] : 1955 62 From: Carlo [place] MD [...] response syndrome This note was generated with [employer] dictation software. It may contain incorrect words, [...] your Primary Care Provider. Call [facility] ([phone]) or report to the closest Emergency Room. Call 911 if necessary. 03/09/181937 <Electronically signed by Carlo [place] MD> Date Carlo [place] MD Cosigner Signature (If Indicated): Date CC: You Parks MD LACTIC ACID Collected: 03/09/2018 Status: F Source: [place] 6:45 PM [facility] REPOSITORY Order Comment: Yes/No query for Sepsis Lactate Rule Y TYPE CODE TESTS RESULT OUT OF REFERENCE UNITS RANGE LAB L503.6005 0.4-2.0 mmol/L High LACTIC ACID 2.4 Result Comment: CALLED [facility] WITH [facility] 03-09-18 AT 1922PM READ BACK BY SAME Performed By: #### L503.6005 #### [facility] [address] [place], [place], [address] Observed: 03/09/2018 Status: F Source: [place] CULTURE, BLOOD (WB) 6:45 PM [facility] REPOSITORY BC No growth in 5 days. Performed By: #### M200.1000 #### [facility] [address] [place], [place], [address] CHEST 1 VIEW Observed: 03/09/2018 Status: F Source: [place] (PORTABLE) 6:26 PM [facility] REPOSITORY [facility] Imaging Services [address] [place] [address] Chest 1 View (Portable) MR#: [id number] Acct: [id number] Name: CRYSTAL CRAMER Rep #: [id number] : 1955 F 62 From: Ok Pandey MD PCP: You Parks MD Status: REG ER Study: Chest 1 View (Portable) Date of Exam: 03/09/18 Exam# [id number] Ordering Dr: Carlo [place] MD STUDY: X-RAY [...] CC: Carlo [place] MD; You Parks MD Fiscal Technician: Signed URINALYSIS, COMPLETE Collected: 03/09/2018 Status: F Source: [place] 5:35 PM [facility] REPOSITORY Order Comment: Order Date: 03/09/18 Has pt arrived? Y How was Urine Obtained? 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 Performed By: #### M100.0650 #### [facility] [address] [place], [address] ABDOMEN/PELVIS WITHOUT Observed: 03/09/2018 Status: F Source: [place] CONT 4:09 PM [facility] REPOSITORY [facility] Imaging Services [address] [place] [address] Abdomen/Pelvis without Cont MR#: [id number] Acct: [id number] Name: CRYSTAL CRAMER Rep #: [id number] : 1955 F 62 From: Lucia Medley MD PCP: You Parks MD Status: REG ER Study: Abdomen/Pelvis without Cont Date of Exam: 03/09/18 Exam# [id number] Ordering Dr: Carlo [place] MD STUDY: CT [...] CC: Carlo [place] MD; You Parks MD Fiscal Technician: Signed CBC W/DIFF, AUTOMATED Collected: 03/09/2018 Status: C Source: [place] 2:35 PM [facility] REPOSITORY TYPE CODE TESTS RESULT OUT [...] Lisha yepez Performed By: #### L100.0100 #### [facility] [address] [place], [address] COMPREHENSIVE METABOLIC Collected: 03/09/2018 Status: F Source: [place] [facility] 2:35 PM [facility] REPOSITORY TYPE CODE TESTS RESULT OUT [...] 9 Performed By: #### L500.4050, L501.2450 #### [facility] [address] [place], [address] LIPASE Collected: 03/09/2018 Status: F Source: [place] 2:35 PM [facility] REPOSITORY TYPE CODE TESTS RESULT OUT OF RANGE REFERENCE UNITS LAB L501.2450 73-393 U/L Normal LIPASE 121 Performed By: #### L500.4050, L501.2450 #### [facility] [address] [place], [address] CRP Collected: 03/09/2018 Status: F Source: [place] 2:35 PM [facility] REPOSITORY TYPE CODE TESTS RESULT OUT OF RANGE REFERENCE UNITS LAB L501.6710 0.0-3.0 mg/L High 76.40 C-REACTIVE PROT Result Comment: C-Reactive Protein (CRP) provides useful information for the diagnosis, therapy and monitoring of inflammatory processes and associated diseases. For the evaluation of Relative Risk for Cardiovascular Disease, a High Sensitivity CRP (HSCRP) should be ordered. Performed By: #### L501.6710 #### [facility] [address] [place], [address] ERYTHROCYTE SED RATE Collected: 03/09/2018 Status: F Source: [place] 2:35 PM [facility] REPOSITORY TYPE CODE TESTS RESULT OUT OF RANGE REFERENCE UNITS LAB L102.0000 0-30 mm/hr High SED RATE 43 Performed By: #### L101.9900 #### [facility] [address] [place], [place], [address] EMERGENCY DEPARTMENT Observed: 03/04/2018 Status: F Source: [place] SUMMARY 1:19 PM [facility] REPOSITORY [facility] Medical Records Department [address] [place] [address] Emergency Department Summary 03/04/18 1315 MR#: [id number] Acct: [id number] Name: CRYSTAL CRAMER Rep #: [id number] : 1955 62 From: Son Long MD [...] Impression: Nausea This note was generated with [employer] dictation software. It may contain incorrect words, [...] your Primary Care Provider. Call [facility] ([phone]) or report to the closest Emergency Room. Call 911 if necessary. 03/04/18 1319 <Electronically signed by Son Long MD> Date Son Long MD Cosigner Signature (If Indicated): Date CC: You Parks MD CBC W/DIFF, AUTOMATED Collected: 03/04/2018 Status: F Source: [place] 11:12 AM [facility] REPOSITORY TYPE CODE TESTS RESULT OUT [...] Lymph 2.47 Performed By: #### L100.0100 #### [facility] [address] [place], [address] COMPREHENSIVE METABOLIC Collected: 03/04/2018 Status: F Source: [place] [facility] 11:12 AM [facility] REPOSITORY TYPE CODE TESTS RESULT OUT [...] GAP 8 Performed By: #### L500.4050 #### [facility] Laboratory [facility] [address] [place], [place], [address] EMERGENCY DEPARTMENT Observed: 02/27/2018 Status: F Source: [place] SUMMARY 11:17 AM [facility] REPOSITORY [facility] Medical Records Department [address] [place] [address] Emergency Department Summary 02/26/18 1218 MR#: [id number] Acct: [id number] Name: CRYSTAL CRAMER Rep #: [id number] : 1955 62 From: Ramon Young MD [...] 1. Gastroparesis. This note was generated with [employer] dictation software. It may contain incorrect words, [...] your Primary Care Provider. Call [facility] ([phone]) or report to the closest Emergency Room. Call 911 if necessary. 02/27/18 1117 <Electronically signed by Ramon Young MD> Date Ramon Young MD Cosigner Signature (If Indicated): Date CC: You Parks MD 12 LEAD ELECTROCARDIOGRAM Observed: 02/24/2018 Status: F Source: [place] 3:39 PM [facility] REPOSITORY [facility] Cardiovascular Services [address] [place] [address] 12 Lead EKG 02/19/18 0957 MR#: [id number] Acct: [id number] Name: CRYSTAL CRAMER Marissa Rep #: [id number] : 1955 62 From: Perfecto Haskins MD [...] ECG Confirmed by PERFECTO HASKINS MD ([id number]), proposal editor MAIKEL MULLEN ([id number]) on 02/24/2018 3:38:48 PM Referred By: BERNARDINO Confirmed By:PERFECTO HASKINS MD 02/24/18 1538 Date Perfecto Haskins MD CC: Robe Root DO; You Parks MD Signed EMERGENCY DEPARTMENT Observed: 02/22/2018 Status: F Source: [place] SUMMARY 10:49 PM [facility] REPOSITORY [facility] Medical Records Department [address] [place] [address] Emergency Department Summary 02/22/182028 MR#: [id number] Acct: [id number] Name: CRYSTAL CRAMER Rep #: [id number] : 1955 62 From: Mukul Rico MD [...] and vomiting This note was generated with [employer] dictation software. It may contain incorrect words, [...] your Primary Care Provider. Call [facility] ([phone]) or report to the closest Emergency Room. Call 911 if necessary. 02/22/18 2249 <Electronically signed by Mukul Rico MD> Date Mukul Rico MD Cosigner Signature (If Indicated): Date CC: You Parks MD CBC W/DIFF, AUTOMATED Collected: 02/22/2018 Status: F Source: [place] 8:10 PM [facility] REPOSITORY TYPE CODE TESTS RESULT OUT [...] Lymph 2.08 Performed By: #### L100.0100 #### [facility] [address] [place], [place], [address] COMPREHENSIVE METABOLIC Collected: 02/22/2018 Status: F Source: [facility] 8:10 PM [facility] REPOSITORY TYPE CODE TESTS RESULT OUT [...] GAP 9 Performed By: #### L500.4050 #### [facility] [address] [facility] [place], [address] EMERGENCY DEPARTMENT Observed: 02/21/2018 Status: F Source: [place] SUMMARY 7:56 AM [facility] REPOSITORY [facility] Medical Records Department [address] [place] [address] Emergency Department Summary 02/21/18 0752 MR#: [id number] Acct: [id number] Name: CRYSTAL CRAMER Rep #: [id number] : 1955 62 From: Jose Alberto Umana [...] Job number on date of service is [id number] This note was generated with [employer] software. It may contain incorrect words, spelling, [...] your Primary Care Provider. Call [facility] ([phone]) or report to the closest Emergency Room. Call 911 if necessary. 02/21/18 0756 <Electronically signed by Jose Alberto Umana MD> Date Jose Alberto Umana MD Cosigner Signature (If Indicated): Date CC: You Parks MD EMERGENCY DEPARTMENT Observed: 02/19/2018 Status: F Source: [place] SUMMARY 11:41 AM [facility] REPOSITORY [facility] Medical Records Department [address] [facility] [place] [address] Emergency Department Summary 02/19/18 1139 MR#: [id number] Acct: [id number] Name: CRYSTAL CRAMER Rep #: [id number] : 1955 62 From: Robe Root DO [...] on chronic] This note was generated with [employer] dictation software. It may contain incorrect words, [...] your Primary Care Provider. Call [facility] ([phone]) or report to the closest Emergency Room. Call 911 if necessary. 02/19/18 1141 <Electronically signed by Robe Root DO> Date Robe Root DO Cosigner Signature (If Indicated): Date CC: You Parks MD DISCHARGE INSTRUCTION Observed: 02/19/2018 Status: F Source: [place] 11:41 AM [facility] REPOSITORY [facility] Medical Records Department [address] [place] [address] Discharge Instruction 02/19/18 1141 MR#: [id number] Acct: [id number] Name: CRYSTAL CRAMER Rep #: [id number] : 1955 62 From: Robe Root DO [...] your Primary Care Provider. Call [facility] ([phone]) or report to the closest Emergency Room. Call 911 if necessary. 02/19/18 1141 <Electronically signed by Robe Root DO> Date Charlette Bernardino BAIRES Cosigner Signature (If Indicated): Date CC: You Parks MD CBC W/DIFF, AUTOMATED Collected: 02/19/2018 Status: F Source: [place] 10:12 AM [facility] REPOSITORY TYPE CODE TESTS RESULT OUT [...] Lymph 2.19 Performed By: #### L100.0100 #### [facility] [address] [place], [address] URINALYSIS, COMPLETE Collected: 02/19/2018 Status: F Source: [place] 10:12 AM [facility] REPOSITORY Order Comment: Order Date: 02/19/18 How [...] URINE SEEN Performed By: #### L400.0001 #### [facility] [address] [facility] [place], [address] BASIC METABOLIC Collected: 02/19/2018 Status: F Source: [place] PROFILE (BMP) 10:12 AM [facility] REPOSITORY TYPE CODE TESTS RESULT OUT [...] 8 Performed By: #### L500.2500, L501.4010 #### [facility] [address] [place], [address] TROPONIN-I Collected: 02/19/2018 Status: F Source: [place] 10:12 AM [facility] REPOSITORY TYPE CODE TESTS RESULT OUT OF RANGE REFERENCE UNITS LAB L501.4010 <0.045 ng/mL Normal < 0.015 TROPONIN-I Result Comment: TROPONIN-I EXPECTED VALUES <0.045 Negative 0.045 - 0.590 Consistent with Cardiac Damage > OR = 0.600 Critical Value Not every elevated troponin is indicative of IA. These values should be used with clinical judgement in examining the patient's clinical picture for diagnosis. To establish a diagnosis of IA versus myocardial injury, there must be a demonstrated rise and/or fall in the troponin values, in addition to ischemic symptoms, EKG changes, new regional wall motion abnormality, and/or angiographical evidence. PLEASE NOTE: REFERENCE RANGES EDITED 17 Performed By: #### L500.2500, L501.4010 #### [facility] [address] [place], [address] EMERGENCY DEPARTMENT Observed: 02/06/2018 Status: F Source: [place] SUMMARY 11:42 PM [facility] REPOSITORY [facility] Medical Records Department [address] [place] [address] Emergency Department Summary 02/05/18 1651 MR#: [id number] Acct: [id number] Name: CRYSTAL CRAMER Rep #: [id number] : 1955 62 From: Mansoor Haywood DO [...] and requested something for pain. She received [place] for which she has at home. Patient will be discharged home. I did contact case management to discuss care plan option for this patient. Impression: 1. Nausea 2. Diabetic hyperglycemia This note was generated with [employer] dictation software. It may contain incorrect words, [...] your Primary Care Provider. Call [facility] ([phone]) or report to the closest Emergency Room. Call 911 if necessary. 02/06/18 7229 <Electronically signed by Mansoor Haywood DO> Date Mansoor Haywood DO Cosigner Signature (If Indicated): Date CC: You Parks MD BEDSIDE GLUCOSE Collected: 02/05/2018 Status: F Source: [place] 5:07 PM [facility] REPOSITORY TYPE CODE TESTS RESULT OUT OF REFERENCE UNITS RANGE LAB L501.080 70-110 mg/dL High BEDSIDE GLU 279 Result Comment: MANAGEMENT OF PATIENT CARE PER NURSING PROTOCOL Performed By: #### L501.080 #### [facility] Laboratory Point of Care [address] [place] [address] BEDSIDE GLUCOSE Collected: 02/05/2018 Status: F Source: [place] 3:21 PM [facility] REPOSITORY TYPE CODE TESTS RESULT OUT OF REFERENCE UNITS RANGE LAB L501.080 70-110 mg/dL High BEDSIDE GLU 449 Result Comment: MANAGEMENT OF PATIENT CARE PER NURSING PROTOCOL Performed By: #### L501.080 #### [facility] Laboratory Point of Care [address] [place] [address] DOWNTIME REPORT Observed: 02/05/2018 Status: F Source: [place] 2:56 PM [facility] REPOSITORY [facility] Medical Records Department [address] [place] [address] Downtime Report MR#: [id number] Acct: [id number] Name: CRYSTAL CRAMER Rep #: [id number] : 1955 62 From: Fabby Mullen MD PCP: You Parks MD Status: DEP ER This patient was seen during an EMR downtime January 20, 2018 - January 27, 2018. This patient may have a combination of paper and electronic documentation or all paper documentation. All documentation is viewable within the e-chart portion of [facility] for each patient visit. BEDSIDE GLUCOSE Collected: 01/28/2018 Status: F Source: [place] 5:55 PM [facility] REPOSITORY TYPE CODE TESTS RESULT OUT OF REFERENCE UNITS RANGE LAB L501.080 70-110 mg/dL High BEDSIDE GLU 349 Result Comment: MANAGEMENT OF PATIENT CARE PER NURSING PROTOCOL Performed By: #### L501.080 #### [facility] Point of Care [address] [place] [address] EMERGENCY DEPARTMENT Observed: 01/28/2018 Status: F Source: [place] SUMMARY 5:13 PM [facility] REPOSITORY [facility] Medical Records Department [place] [address] Emergency Department Summary 01/28/18 1711 MR#: [id number] Acct: [id number] Name: CRYSTAL CRAMER Marissa Rep #: [id number] : 1955 62 From: Carlo [place] MD [...] Impression: Gastroparesis This note was generated with [employer] dictation software. It may contain incorrect words, [...] problems, contact your Primary Care Provider. Call [facility] ([phone]) or report to the closest Emergency Room. Call 911 if necessary. 01/28/18 9566 <Electronically signed by Carlo [place] MD> Date Carlo [place] MD Cosigner Signature (If Indicated): Date CC: You Parks MD DISCHARGE INSTRUCTION Observed: 01/28/2018 Status: F Source: [place] 5:13 PM [facility] HOSPITAL REPOSITORY [facility] Medical Records Department [address] [place] [address] Discharge Instruction 01/28/181712 MR#: [id number] Acct: [id number] Name: CRYSTAL CRAMER Rep #: [id number] : 1955 62 From: Carlo [place] MD [...] your Primary Care Provider. Call [facility] ([phone]) or report to the closest Emergency Room. Call 911 if necessary. 01/28/181712 <Electronically signed by Carlo [place] MD> Date Carlo [place] MD Cosigner Signature (If Indicated): Date CC: You Parks MD CBC W/DIFF, AUTOMATED Collected: 01/28/2018 Status: F Source: [place] 3:35 PM [facility] REPOSITORY TYPE CODE TESTS RESULT OUT [...] Lymph 1.99 Performed By: #### L100.0100 #### [facility] [address] [facility] [place], [place], [id number] BASIC METABOLIC Collected: 01/28/2018 Status: F Source: [place] PROFILE (BMP) 3:35 PM [facility] REPOSITORY TYPE CODE TESTS RESULT OUT [...] GAP 6 Performed By: #### L500.2500 #### [facility] [address] [place], [address] BASIC METABOLIC Collected: 01/22/2018 Status: F Source: [place] PROFILE (BMP) 12:00 AM [facility] REPOSITORY Order Comment: RESULT(S) PREVIOUSLY REPORTED ON [...] GAP 7 Performed By: #### L500.2500 #### [facility] [address] [place], [address] EMERGENCY DEPARTMENT Observed: 01/17/2018 Status: F Source: [place] SUMMARY 12:19 AM [facility] REPOSITORY [facility] Medical Records Department [address] [place] [address] Emergency Department Summary 01/16/18 2246 MR#: [id number] Acct: [id number] Name: CRYSTAL CRAMER Rep #: [id number] : 1955 62 From: [place] Mortensen PCP: [...] of gastroparesis This note was generated with [employer] dictation software. It may contain incorrect words, [...] your Primary Care Provider. Call [facility] ([phone]) or report to the closest Emergency Room. Call 911 if necessary. 01/17/18 0019 <Electronically signed by Marcus Mortensen> Date [place] Mortensen Cosigner Signature (If Indicated): Date CC: You Parks MD BASIC METABOLIC Collected: 01/16/2018 Status: F Source: [place] PROFILE (BMP) 11:00 PM [facility] REPOSITORY TYPE CODE TESTS RESULT OUT [...] 9 GAP Performed By: #### L500.2500 #### [facility] [address] [place], [address] BEDSIDE GLUCOSE Collected: 01/16/2018 Status: F Source: [place] 10:41 PM [facility] REPOSITORY TYPE CODE TESTS RESULT OUT OF REFERENCE UNITS RANGE LAB L501.080 70-110 mg/dL High BEDSIDE GLU 249 Result Comment: MANAGEMENT OF PATIENT CARE PER NURSING PROTOCOL Performed By: #### L501.080 #### [facility] Laboratory Point of Care [address] [place] [address] EMERGENCY DEPARTMENT Observed: 01/12/2018 Status: F Source: [place] SUMMARY 5:23 PM [facility] REPOSITORY [facility] Medical Records Department [address] [place] [address] Emergency Department Summary 01/12/18 1435 MR#: [id number] Acct: [id number] Name: CRYSTAL CRAMER Rep #: [id number] : 1955 62 From: Shreyas Mary MD [...] your Primary Care Provider. Call [facility] ([phone]) or report to the closest Emergency Room. Call 911 if necessary. 01/12/18 1723 <Electronically signed by Shreyas Mary MD> Date Shreyas Mary MD Cosigner Signature (If Indicated): Date CC: You Parks MD BASIC METABOLIC Collected: 01/12/2018 Status: F Source: [place] PROFILE (BMP) 3:20 PM [facility] REPOSITORY TYPE CODE TESTS RESULT OUT [...] GAP 6 Performed By: #### L500.2500 #### [facility] [address] [place], [place], [address] CBC W/DIFF, AUTOMATED Collected: 01/12/2018 Status: F Source: [place] 3:20 PM [facility] REPOSITORY TYPE CODE TESTS RESULT OUT [...] Lymph 2.16 Performed By: #### L100.0100 #### [facility] [address] [place], [address] EMERGENCY DEPARTMENT Observed: 01/12/2018 Status: F Source: [place] SUMMARY 1:50 AM [facility] REPOSITORY [facility] Medical Records Department [address] [place] [address] Emergency Department Summary 01/11/18 2327 MR#: [id number] Acct: [id number] Name: CRYSTAL CRAMER Rep #: [id number] : 1955 62 From: Sarah Khan DO [...] [] Gastroparesis This note was generated with [employer] software. It may contain incorrect words, spelling, [...] your Primary Care Provider. Call [facility] ([phone]) or report to the closest Emergency Room. Call 911 if necessary. 01/12/18 0150 <Electronically signed by Sarah Khan DO> Date Sarah Khan DO Cosigner Signature (If Indicated): Date CC: You Parks MD DISCHARGE INSTRUCTION Observed: 01/12/2018 Status: F Source: [place] 1:17 AM [facility] REPOSITORY [facility] Medical Records Department [address] [place] [address] Discharge Instruction 01/12/18 0117 MR#: [id number] Acct: [id number] Name: CRYSTAL CRAMER Rep #: [id number] : 1955 62 From: Sarah Khan DO [...] your Primary Care Provider. Call [facility] ([phone]) or report to the closest Emergency Room. Call 911 if necessary. 01/12/18 0117 <Electronically signed by Sarah Khan DO> Date Sarah Khan DO Cosigner Signature (If Indicated): Date CC: You Parks MD CBC W/DIFF, AUTOMATED Collected: 01/11/2018 Status: F Source: [place] 11:55 PM [facility] REPOSITORY TYPE CODE TESTS RESULT OUT [...] Lymph 2.88 Performed By: #### L100.0100 #### [facility] [address] [place], [address] COMPREHENSIVE METABOLIC Collected: 01/11/2018 Status: F Source: [place] [facility] 11:55 PM [facility] REPOSITORY TYPE CODE TESTS RESULT OUT [...] GAP 8 Performed By: #### L500.4050 #### [facility] [address] [place], [address] EMERGENCY DEPARTMENT Observed: 01/09/2018 Status: F Source: [place] SUMMARY 7:15 PM [facility] REPOSITORY [facility] Medical Records Department [address] [place] [address] Emergency Department Summary 01/09/18 1708 MR#: [id number] Acct: [id number] Name: CRYSTAL CRAMER Rep #: [id number] : 1955 62 From: Bebeto Lugo DO [...] Patient states her primary care physician and supervisor computer operations are evaluating her for possible gastroparesis and/or [...] follow-up with her primary care physician and supervisor computer operations as scheduled. Patient understood and was agreeable with the plan. All questions were answered. Disposition: Discharged home Impression: Nausea and vomiting This note was generated with [employer] dictation software. It may contain incorrect words, [...] your Primary Care Provider. Call [facility] ([phone]) or report to the closest Emergency Room. Call 911 if necessary. 01/09/18 481 <Electronically signed by Bebeto Lugo DO> Date Bebeto Lugo DO Cosigner Signature (If Indicated): Date CC: You Parks MD URINALYSIS, COMPLETE Collected: 01/09/2018 Status: F Source: [place] 4:58 PM [facility] REPOSITORY Order Comment: How was Urine Obtained? AUTOMATION MACHINE OPERATOR TO SPECIFY TYPE CODE TESTS RESULT OUT [...] URINE SEEN Performed By: #### L400.0001 #### [facility] [address] [place], [place], [address] CBC W/DIFF, AUTOMATED Collected: 01/09/2018 Status: F Source: [place] 4:17 PM [facility] REPOSITORY TYPE CODE TESTS RESULT OUT [...] Lymph 2.07 Performed By: #### L100.0100 #### [facility] [address] [place], [address] COMPREHENSIVE METABOLIC Collected: 01/09/2018 Status: F Source: [facility] 4:17 PM [facility] REPOSITORY TYPE CODE TESTS RESULT OUT [...] 9 Performed By: #### L500.4050, L501.2400 #### [facility] [address] [place], [address] AMYLASE Collected: 01/09/2018 Status: F Source: [place] 4:17 PM [facility] REPOSITORY TYPE CODE TESTS RESULT OUT OF RANGE REFERENCE UNITS LAB L501.2400 25-115 U/L Low KAMRON 13 Performed By: #### L500.4050, L501.2400 #### [facility] [address] [place], [address] EMERGENCY DEPARTMENT Observed: 01/08/2018 Status: F Source: [place] SUMMARY 8:27 AM [facility] REPOSITORY [facility] Medical Records Department [address] [place] [address] Emergency Department Summary 01/07/18 1223 MR#: [id number] Acct: [id number] Name: CRYSTAL CRAMER Rep #: [id number] : 1955 62 From: Mansoor Haywood DO [...] 2. Vomiting This note was generated with [employer] dictation software. It may contain incorrect words, [...] your Primary Care Provider. Call [facility] ([phone]) or report to the closest Emergency Room. Call 911 if necessary. 01/08/18 0827 <Electronically signed by Mansoor Haywood DO> Date Mansoor Haywood DO Mikaylaignmaggy Signature (If Indicated): Date CC: You Parks MD CBC W/DIFF, AUTOMATED Collected: 01/07/2018 Status: F Source: [place] 9:02 AM [facility] REPOSITORY TYPE CODE TESTS RESULT OUT [...] Lymph 2.49 Performed By: #### L100.0100 #### [facility] [place], [address] COMPREHENSIVE METABOLIC Collected: 01/07/2018 Status: F Source: [place] [facility] 9:02 AM [facility] REPOSITORY TYPE CODE TESTS RESULT OUT [...] 9 Performed By: #### L500.4050, L501.2450 #### [facility] [address] [place], [address] LIPASE Collected: 01/07/2018 Status: F Source: [place] 9:02 AM [facility] REPOSITORY TYPE CODE TESTS RESULT OUT OF RANGE REFERENCE UNITS LAB L501.2450 73-393 U/L Normal LIPASE 123 Performed By: #### L500.4050, L501.2450 #### [facility] [address] [place], [address] CNCO Observed: 12/31/2017 Status: COMPLETED Source: [place] 2:00 PM [facility] REPOSITORY HNO ID: [id number] Author: Mammography Coordinator Service: (none) Author Type: Physician Type: Letter Filed: 01/01/2018 11:32 PM Note Text: December 31, 2017 PID: [id number] Crystal Cramer [address] [place] [id number] Dear Ms. Cramer, We are pleased to [...] report will be kept on file at [facility] as part of your permanent medical record and are available for your continuing care. Thank you for allowing us to help in meeting your health care needs. Sincerely, Dr. Hallman Interpreting Radiologist [facility] (Normal over 40) PROGRESS Observed: 12/31/2017 Status: COMPLETED Source: [place] 12:48 PM [facility] REPOSITORY HNO ID: [id number] Author: Carole Perkins Service: (none) Author Type: [...] W IVCON Observed: 12/31/2017 Status: F Source: [place] 12:22 PM [facility] REPOSITORY * * *Final Report* * * DATE OF EXAM: Dec 31 2017 12:22PM [facility] 0530 - CT ABD/PEL W IVCON / [...] may be contributing to the patient's symptoms. Fiscal Technician: ABRAM Transcribe Date/Time: Dec 31 2017 1:21P Dictated by : PELON GARRETT MD This examination was interpreted and the report reviewed and electronically signed by: PELON GARRETT MD on Dec 31 2017 1:32PM EST [id number] CT CHEST W IVCON Observed: 12/31/2017 Status: F Source: [place] 12:22 PM [facility] REPOSITORY * * *Final Report* * * DATE OF EXAM: Dec 31 2017 12:22PM [facility] 0539 - CT CHEST W IVCON / [...] intra- abdominal fat or a lipomatous lesion. Fiscal Technician: ABRAM Transcribe Date/Time: Dec 31 2017 2:47P Dictated by : VERONICA IBARRA MD This examination was interpreted and the report reviewed and electronically signed by: VERONICA IBARRA MD on Dec 31 2017 3:07PM EST [id number] [place] CREATININE Collected: 12/31/2017 Status: F Source: [place] 10:09 AM [facility] REPOSITORY TYPE CODE TESTS RESULT OUT OF REFERENCE UNITS RANGE LAB WCRET 0.7-1.4 mg/dL [place] Creatinine 1.2 LUCY SCREENING W RAMO Observed: 12/31/2017 Status: F Source: [place] 9:51 AM [facility] REPOSITORY * * *Final Report* * * DATE OF EXAM: Dec 31 2017 9:51AM [facility] 0582 - LUCY SCREENING W RAMO / PROCEDURE REASON: Other disorders of nervous system * * * * Physician Interpretation * * * * RESULT: #[id number] - LUCY SCREENING W RAMO BILATERAL DIGITAL SCREENING MAMMOGRAM TOMOSYNTHESIS WITH CAD: 12/31/2017 HISTORY: Other Disorders Of Nervous System\ Screening Mammogram - patient reports NO breast symptoms /Patient has signed release for outside images\[facility]. RESULT: TECHNIQUE: The study was acquired [...] staff physician. Maral Kennedy M.D., jr,as/maylin:12/31/2017 14:00:45 Toy Assembler Wood: Janneth Chris RT(R)(M), [place] [employer] letter sent: Normal over 40 Mammogram BI-RADS: 1 Negative Fiscal Technician: Maylin Transcribe Date/Time: Dec 31 2017 9:52A Dictated by: FABBY KENNEDY MD This examination was interpreted and the report reviewed and electronically signed by: MARAL HALLMAN MD on Dec 31 2017 2:00PM EST [id number] EMERGENCY DEPARTMENT Observed: 12/28/2017 Status: F Source: [place] SUMMARY 11:27 PM [facility]PITAL REPOSITORY [facility] Medical Records Department [address] [place] [address] Emergency Department Summary 12/28/17 2325 MR#: [id number] Acct: [id number] Name: CRYSTAL CRAMER Rep #: [id number] : 1955 62 From: [place] MD [...] Vomiting Gastroparesis This note was generated with [employer] dictation software. It may contain incorrect words, [...] your Primary Care Provider. Call [facility] ([phone]) or report to the closest Emergency Room. Call 911 if necessary. 12/28/172326 <Electronically signed by Carlo [place] MD> Date [place] MD Cosigner Signature (If Indicated): Date CC: You Parks MD DISCHARGE INSTRUCTION Observed: 12/28/2017 Status: F Source: [place] 11:27 PM [facility] REPOSITORY [facility] Medical Records Department [address] [place] [address] Discharge Instruction 12/28/172326 MR#: [id number] Acct: [id number] Name: CRYSTAL CRAMER Rep #: [id number] : 1955 62 From: [place] MD [...] your Primary Care Provider. Call [facility] ([phone]) or report to the closest Emergency Room. Call 911 if necessary. 12/28/172326 <Electronically signed by [place] MD> Date Carlo [place] MD Cosigner Signature (If Indicated): Date CC: You Parks MD CBC W/DIFF, AUTOMATED Collected: 12/28/2017 Status: F Source: [place] 10:10 PM [facility] REPOSITORY TYPE CODE TESTS RESULT OUT [...] Lymph 2.28 Performed By: #### L100.0100 #### [facility] [address] [place], [address] COMPREHENSIVE METABOLIC Collected: 12/28/2017 Status: F Source: [place] [facility] 10:10 PM [facility] REPOSITORY TYPE CODE TESTS RESULT OUT [...] 7 Performed By: #### L500.4050, L501.2450 #### [facility] [address] [place], [address] LIPASE Collected: 12/28/2017 Status: F Source: [place] 10:10 PM [facility] REPOSITORY TYPE CODE TESTS RESULT OUT OF RANGE REFERENCE UNITS LAB L501.2450 73-393 U/L Normal LIPASE 96 Performed By: #### L500.4050, L501.2450 #### [facility] [address] [place], [address] PROGRESS Observed: 12/18/2017 Status: COMPLETED Source: [place] 10:32 AM [facility] REPOSITORY HNO ID: [id number] Author: Mukul Steven Service: (none) Author Type: [...] no edema RESPIRATORY: No dyspnea : negative COLD MILL OPERATOR: negative The remainder of the review of [...] 12/18/2017 CNOV Observed: 12/18/2017 Status: COMPLETED Source: [place] 10:10 AM [facility] REPOSITORY Office Visit (GASTMN) CRYSTAL CRAMER ([id number]) 1955 F Date Time Provider Department 12/18/17 [...] no edema RESPIRATORY: No dyspnea : negative COLD MILL OPERATOR: negative The remainder of the review of [...] Mukul Steven 12/18/2017 Referring Provider: YOU PARKS [[id number]] Allergies As of Date: 12/18/2017 Noted Allergy [...] syndrome [G98.8] Order(s):CREATININE BLD [SQCRET] Order #: [id number] FUTURE LUCY SCREENING [9930905] Order #: [id number] FUTURE CT ABD/PEL W IVCON [8619510] Order #: [id number] FUTURE CT CHEST W IVCON [3523582] Order #: [id number] FUTURE iv contrast (radiology procedure)CT Chest ABD/PEL-Inject, [...] EMERGENCY DEPARTMENT Observed: 12/17/2017 Status: F Source: [place] SUMMARY 2:25 AM [facility] Medical Records Department [address] [place] [address] Emergency Department Summary 12/16/17 2155 MR#: [id number] Acct: [id number] Name: CRYSTAL CRAMER Rep #: [id number] : 1955 62 From: Mukul Morris MD [...] 1. Gastroparesis This note was generated with [employer] dictation software. It may contain incorrect words, [...] your Primary Care Provider. Call [facility] ([phone]) or report to the closest Emergency Room. Call 911 if necessary. 12/17/17 0225 <Electronically signed by Mukul Morris MD> Date Mukul Morris MD Cosigner Signature (If Indicated): Date CC: You Parks MD CBC W/DIFF, AUTOMATED Collected: 12/16/2017 Status: F Source: [place] 7:10 PM [facility] REPOSITORY TYPE CODE TESTS RESULT OUT [...] Lymph 2.32 Performed By: #### L100.0100 #### [facility] [address] [place], [address] BASIC METABOLIC Collected: 12/16/2017 Status: F Source: [place] PROFILE (BMP) 7:10 PM [facility] REPOSITORY TYPE CODE TESTS RESULT OUT [...] GAP 4 Performed By: #### L500.2500 #### [facility] [address] [facility] [place], [address] EMERGENCY DEPARTMENT Observed: 12/11/2017 Status: F Source: [place] SUMMARY 7:53 PM [facility] REPOSITORY [facility] Medical Records Department [address] [place] [address] Emergency Department Summary 12/11/171951 MR#: [id number] Acct: [id number] Name: CRYSTAL CRAMER Rep #: [id number] : 1955 62 From: Jose Alberto Umana [...] your Primary Care Provider. Call [facility] ([phone]) or report to the closest Emergency Room. Call 911 if necessary. 12/11/171952 <Electronically signed by Jose Alberto Umana MD> Date Jose Alberto Umana MD Cosigner Signature (If Indicated): Date CC: You Parks MD EMERGENCY DEPARTMENT Observed: 12/11/2017 Status: F Source: [place] SUMMARY 7:49 PM [facility] REPOSITORY [facility] Medical Records Department [address] [place] [address] Emergency Department Summary 12/11/171944 MR#: [id number] Acct: [id number] Name: CRYSTAL CRAMER Rep #: [id number] : 1955 62 From: Jose Alberto Umana [...] Renal insufficiency This note was generated with [employer] dictation software. It may contain incorrect words, [...] your Primary Care Provider. Call [facility] ([phone]) or report to the closest Emergency Room. Call 911 if necessary. 12/11/171948 <Electronically signed by Jose Alberto Umana MD> Date Jose Alberto Umana MD Cosigner Signature (If Indicated): Date CC: You Parks MD BASIC METABOLIC Collected: 12/11/2017 Status: F Source: [place] PROFILE (BMP) 4:15 PM [facility] REPOSITORY TYPE CODE TESTS RESULT OUT [...] GAP 7 Performed By: #### L500.2500 #### [facility] [address] [facility] [place], [address] 12 LEAD ELECTROCARDIOGRAM Observed: 12/09/2017 Status: F Source: [place] 3:16 PM [facility] REPOSITORY [facility] Cardiovascular Services [address] [place] [address] 12 Lead EKG 12/05/172009 MR#: [id number] Acct: [id number] Name: CRYSTAL CRAMER Rep #: [id number] : 1955 62 From: Son Ellison MD [...] ECG Confirmed by JOSE MANUEL CURRY, SON ([id number]), proposal editor MAIKEL MULLEN ([id number]) on 12/09/2017 3:15:36 PM Referred By: BENI Confirmed By:SON ELLISON MD 12/09/17 9715 Date Son Ellison MD CC: MD Mamadou Avelar; YOU PARKS Signed EMERGENCY DEPARTMENT Observed: 12/06/2017 Status: F Source: [place] SUMMARY 12:54 AM [facility] REPOSITORY [facility] Medical Records Department [address] [place] [address] Emergency Department Summary 12/05/172055 MR#: [id number] Acct: [id number] Name: CRYSTAL CRAMER Rep #: [id number] : 1955 62 From: Hailey Avelar MD [...] and gastroparesis she has no history of IA PE or DVT, she indicates her shortness [...] she is under the care of a supervisor computer operations Physical Examination: [] She is in no [...] bland fluid E diet, follow-up with her supervisor computer operations for her gastroparesis and her physicians for other conditions and return for change in symptoms Treatment Plan: [] Disposition: [] Home stable declined admission Impression: [] Nausea suspect related to gastroparesis diabetes, nonspecific shortness of breath for weeks This note was generated with [employer] dictation software. It may contain incorrect words, [...] your Primary Care Provider. Call [facility] ([phone]) or report to the closest Emergency Room. Call 911 if necessary. 12/06/17 0054 <Electronically signed by Hailey Avelar MD> Date Hailey Avelar MD Cosigner Signature (If Indicated): Date CC: YOU PARKS DISCHARGE INSTRUCTION Observed: 12/05/2017 Status: F Source: [place] 11:07 PM [facility] REPOSITORY [facility] Medical Records Department [address] [place] [address] Discharge Instruction 12/05/17 2306 MR#: [id number] Acct: [id number] Name: CRYSTAL CRAMER Rep #: [id number] : 1955 62 From: Hailey Avelar MD [...] your Primary Care Provider. Call [facility] ([phone]) or report to the closest Emergency Room. Call 911 if necessary. 12/05/172306 <Electronically signed by Hailey Avelar MD> Date Hailey Avelar MD Cosigner Signature (If Indicated): Date CC: YOU PARKS DISCHARGE INSTRUCTION Observed: 12/05/2017 Status: F Source: [place] 10:00 PM [facility]OSPITAL REPOSITORY [facility] Medical Records Department [address] [facility] [place] [address] Discharge Instruction 12/05/17 2200 MR#: [id number] Acct: [id number] Name: CRYSTAL CRAMER Rep #: [id number] : 1955 62 From: Hailey Avelar MD [...] your Primary Care Provider. Call [facility] ([phone]) or report to the closest Emergency Room. Call 911 if necessary. 12/05/170 <Electronically signed by Hailey Avelar MD> Date Hailey Avelar MD Cosigner Signature (If Indicated): Date CC: YOU PARKS CBC W/DIFF, AUTOMATED Collected: 12/05/2017 Status: F Source: [place] 8:15 PM [facility] REPOSITORY TYPE CODE TESTS RESULT OUT [...] Lymph 2.39 Performed By: #### L100.0100 #### [facility] [address] [place], [place], [address] BASIC METABOLIC Collected: 12/05/2017 Status: F Source: [place] PROFILE (BMP) 8:15 PM [facility] REPOSITORY Order Comment: 'TROP' Serial specimen #1, [...] 7 Performed By: #### L500.2500, L501.4010 #### [facility] [address] [place], [address] TROPONIN-I Collected: 12/05/2017 Status: F Source: [place] 8:15 PM [facility] REPOSITORY Order Comment: 'TROP' Serial specimen #1, #2, #3, or #4: 1 TYPE CODE TESTS RESULT OUT OF RANGE REFERENCE UNITS LAB L501.4010 <0.06 ng/mL Normal < 0.02 TROPONIN-I Result Comment: TROPONIN-I EXPECTED VALUES <0.05 NEGATIVE 0.06 - 0.59 AT RISK OF IA > OR = 0.60 SUGGEST IA Performed By: #### L500.2500, L501.4010 #### [facility] [address] [place], [place], [address] Observed: 12/05/2017 Status: F Source: [place] INFLUENZA A+B (RAPID 8:15 PM [facility]) REPOSITORY FLU A/B Rapid Negative test results should be confirmed by culture. Order Rapid Viral Culture for Influenzae A+B (068130) if clinically indicated. Influenza Ag, Direct Presumptive NEGATIVE for Influenza A/B Antigen (See Note) Performed By: #### M101.0101 #### [facility] [address] [place], [place], [address] BNP,B-TYPE NATRIURETIC Collected: 12/05/2017 Status: F Source: [place] PEPTIDE 8:15 PM [facility] REPOSITORY TYPE CODE TESTS RESULT OUT OF RANGE REFERENCE UNITS LAB L503.6620 0-100 pg/mL Normal B-TYPE 20.4 LANDON PEP Performed By: #### L503.6620 #### [facility] [address] [place], [address] D-DIMER QUANTITATIVE Collected: 12/05/2017 Status: F Source: [place] (DVT/PE) 8:15 PM [facility] REPOSITORY TYPE CODE TESTS RESULT OUT OF RANGE REFERENCE UNITS LAB L300.8000 0.27-0.49 FEU/ug/m Normal D-DIMER 0.45 QUANT Result Comment: NORMAL D-Dimer level (<0.50) indicates no DVT or PE. Performed By: #### L300.8000 #### [facility] [facility] [address] [place], [address] CHEST 1 VIEW Observed: 12/05/2017 Status: F Source: [place] (PORTABLE) 7:57 PM [facility] REPOSITORY [facility] Imaging Services [address] [place] [address] Chest 1 View (Portable) MR#: [id number] Acct: [id number] Name: BELACRYSTAL L Rep #: [id number] : 1955 F 62 From: Jacob Amaral DO PCP: YOU PARKS Status: REG ER Study: Chest 1 View (Portable) Date of Exam: 12/05/17 Exam# [id number] Ordering Dr: Hailey Avelar MD STUDY: X-RAY [...] , CC: MD Mamadou Avelar; YOU PARKS Fiscal Technician: Signed EMERGENCY DEPARTMENT Observed: 11/24/2017 Status: F Source: [place] SUMMARY 11:10 PM [facility] REPOSITORY [facility] Medical Records Department [address] [place] [address] Emergency Department Summary 11/24/17 2159 MR#: [id number] Acct: [id number] Name: CRYSTAL CRAMER Rep #: [id number] : 1955 62 From: Sarah Khan DO [...] vomiting Gastroparesis This note was generated with [employer] dictation software. It may contain incorrect words, [...] your Primary Care Provider. Call [facility] ([phone]) or report to the closest Emergency Room. Call 911 if necessary. 11/24/17 2310 <Electronically signed by Sarah Khan DO> Date Sarah Khan DO Cosigner Signature (If Indicated): Date CC: YOU PARKS DISCHARGE INSTRUCTION Observed: 11/24/2017 Status: F Source: [place] 10:02 PM [facility] REPOSITORY [facility] Medical Records Department [address] [place] [address] Discharge Instruction 11/24/172200 MR#: [id number] Acct: [id number] Name: CRYSTAL CRAMER Marissa Rep #: [id number] : 1955 62 From: Sarah Khan DO [...] your Primary Care Provider. Call [facility] ([phone]) or report to the closest Emergency Room. Call 911 if necessary. 11/24/172201 <Electronically signed by Sarah Khan DO> Date Sarah Khan DO Cosigner Signature (If Indicated): Date CC: YOU PARKS BASIC METABOLIC Collected: 11/24/2017 Status: F Source: [place] PROFILE ([facility]) 9:04 PM [facility] REPOSITORY TYPE CODE TESTS RESULT OUT [...] GAP 9 Performed By: #### L500.2500 #### [facility] Laboratory [address] [place], [place], [address] .GFR Collected: 11/21/2017 Status: F Source: [facility] 10:01 AM [facility] REPOSITORY TYPE CODE TESTS RESULT OUT OF REFERENCE UNITS RANGE LAB GFRAA(LOINC ml/min/1.73 ) sqm GFR 65 Togolese Result Comment: GFR Population mean for , [...] By: #### GFR, CMP, LIPID, TSH #### [address] [address] CMP Collected: 11/21/2017 Status: F Source: [facility] 10:01 AM [facility] REPOSITORY TYPE CODE TESTS RESULT [...] By: #### GFR, CMP, LIPID, TSH #### [address] [address] LIPID Collected: 11/21/2017 Status: F Source: [facility] 10:01 [facility] REPOSITORY TYPE CODE TESTS RESULT OUT [...] #### GFR, CMP, LIPID, TSH #### Maxime [address] [address] TSH Collected: 11/21/2017 Status: F Source: [facility] 10:01 [facility] REPOSITORY TYPE CODE TESTS RESULT OUT OF RANGE REFERENCE UNITS LAB TSH(LOINC) 0.27-4.20 mcIU/mL TSH 2.38 Performed By: #### GFR, CMP, LIPID, TSH #### [address] [address] TOXSC Collected: 11/06/2017 Status: F Source: [facility] 1:31 PM [facility] REPOSITORY TYPE CODE TESTS RESULT OUT OF REFERENCE UNITS RANGE LAB UTCA(LOINC ) U TCA (AO) Negative LAB AOUBAR(TENA NC) U Stephanie (AO) Negative LAB AOUMETH(LO INC) U Methadone (AO) Negative LAB AOUBNZ(TENA NC) U Zion (AO) Negative LAB AOUCAN(TENA NC) U Cannab (AO) Negative LAB CD:[id number] 71(LOINC) Urine Opiates (AO) Positive LAB AOUAMP(TENA NC) U Ampheta (AO) Negative LAB AOUCOC(TENA NC) U Cocaine (AO) Negative LAB AOUPCP(TENA NC) U PCP (AO) Negative LAB CD:[id number] 03(LOINC) QC TOXSC Valid Performed By: #### TOXSC #### [address] [address] PROGRESS Observed: 10/22/2017 Status: COMPLETED Source: [place] 2:21 PM [facility] REPOSITORY O ID: [id number] Author: Cele (Rn) ALMA Vargas Service: (none) Author Type: Registered Nurse Type: Progress Notes Filed: 10/22/2017 2:24 PM Note Text: Smartll Test Report - [id number] Test start date: 10/11/2017 9:48 AM Interpretation date: 10/22/2017 Ordering physician: Mukul Steven DO Patient Information Name: Crystal Cramer ID: [id number] date: 1955 Height ft. in.: 5' 6 [...] _10/22/17 HOSP Observed: 10/22/2017 Status: COMPLETED Source: [place] 12:00 AM [facility] REPOSITORY Patient Update (GASTMN) CRYSTAL CRAMER Marissa ([id number]) 1955 F Date Time Provider Department 10/22/17 CELE VARGAS) [facility] During your visit today, we recorded the following information about you: Cele Vargas RN, RN 10/22/2017 2:24 PM Signed [facility] Test Report - [id number] Test start date: 10/11/2017 9:48 AM Interpretation date: 10/22/2017 Ordering physician: Mukul Steven DO Patient Information Name: Bela Crystal L. ID: [id number] date: 1955 Height ft. in.: 5' 6ANDquot; [...] Encounter Status:Closed by CELE VARGAS on 10/22/17 [facility] Observed: 10/22/2017 Status: COMPLETED Source: [place] 12:00 AM [facility] REPOSITORY Telephone (GASTCO) CRYSTAL CRAMER ([id number]) 1955 F Date Time Provider Department 10/22/17 [...] 10/23/17 PROGRESS Observed: 10/11/2017 Status: COMPLETED Source: [place] 10:13 AM [facility] REPOSITORY HNO ID: [id number] Author: Cele NgyuenRn) ALMA Vargas Service: (none) Author Type: Registered Nurse Type: Progress Notes Filed: 10/11/2017 10:14 AM Note Text: Referring MD: ?Mukul Steven, DO Dx: ?gastroparesis Date of SmartPill Procedure: ?10/11/2017 ?SmartPill ingested without difficulty at 10:00am. ?Discharge instructions completed and given to patient. Return of Equipment: ?VEENA Vargas, ALMA Capsule Endoscopy Nurse YONATAN Observed: 10/08/2017 Status: COMPLETED Source: [place] 12:00 AM [facility] REPOSITORY Telephone (GASTMN) CRYSTAL CRAMER ([id number]) 1955 F Date Time Provider Department 10/08/17 MUKUL STEVEN [facility] During your visit today, we recorded the following information about you: Manuel Meza RN, RN 10/08/2017 4:16 PM Signed Contacted [employer] [phone] (option 1 and then option [phone]) to obtain a copy of patient's denial letter for IVIG. They are to fax to the office today. Manuel Meza RN, RN 10/08/2017 5:19 PM Signed Received copy of denial letter from [employer] 10/08/17 and forwarded to Erika at [facility]. Allergies As of Date: 10/08/2017 Noted Allergy Reaction BACTRIM (SULFAMETHOXAZOLE-TRIMETH*07/31/2017 4 - Hives CIPROFLOXACIN 06/10/2013 16 - Unknown FLEXERIL (CYCLOBENZAPRINE) 06/10/2013 16 - Unknown METFORMIN 06/28/2017 14 - Other: See Comments Comments: Migraines TORADOL (KETOROLAC) 03/22/2006 band aids [Other] 05/27/2007 Date Reviewed: 07/31/2017 Reviewed by: Mkuul Steven - Fully Assessed Reason for Visit: [...] 10/08/17 YONATAN Observed: 09/12/2017 Status: COMPLETED Source: [place] 12:00 AM [facility] REPOSITORY Telephone (GASTMN) CRYSTAL CRAMER ([id number]) 1955 F Date Time Provider Department 09/12/17 [...] 09/12/17 LIPID Collected: 08/21/2017 Status: F Source: [facility] 10:00 AM [facility] REPOSITORY TYPE CODE TESTS RESULT [...] #### GFR, LIPID, CMP, TSH #### Maxime [address] [place], [place] [address] CMP Collected: 08/21/2017 Status: F Source: [place] [facility] 10:00 AM [facility] REPOSITORY TYPE CODE TESTS RESULT [...] #### GFR, LIPID, CMP, TSH #### [place] [place], [place] [address] .GFR Collected: 08/21/2017 Status: F Source: [place] [facility] 10:00 AM [facility] REPOSITORY TYPE CODE TESTS RESULT OUT OF REFERENCE UNITS RANGE LAB GFRAA(LOINC ml/min/1.73 ) sqm GFR 75 Togolese Result Comment: GFR Population mean for , [...] By: #### GFR, LIPID, CMP, TSH #### [address] [address] TSH Collected: 08/21/2017 Status: F Source: [facility] 10:00 AM [facility] REPOSITORY TYPE CODE TESTS RESULT OUT OF RANGE REFERENCE UNITS LAB TSH(LOINC) 0.27-4.20 mcIU/mL High TSH 8.22 Result Comment: Above normal(expected)range Performed By: #### GFR, LIPID, CMP, TSH #### [address] [address] ALLERGIES ALLERGIES DATE TYPE / CODE NAME / CODE REACTION SEVERITY SOURCE Drug cyclobenzaprine Rash Unknown [place] 8 Allergy/423354169( HCl/C863860096(RXNO [facility]) RM) Hospital Repository Drug ketorolac Chest Unknown [place] 8 Allergy/862373900( tromethamine/Q[address]) 3539(RXNORM) Hospital Repository Drug ciprofloxacin Shortness of Unknown [place] 8 Allergy/130232525( HCl/J885158138(RXNO breath [facility]) ) Hospital Repository Drug valacyclovir Other Unknown [place] 8 Allergy/427079597( HCl/T377236015(RXNO [facility]) ) Hospital Repository Drug sulfamethoxazole/F0 Itching Unknown [place] 8 Allergy/792407177( 17060264(RXNORM) [facility]) Hospital Repository Drug trimethoprim/T18861 Itching Unknown [place] 8 Allergy/877490309( 2873(RXNORM) [facility]) Hospital Repository Drug ciprofloxacin/F0060 Shortness of Unknown [place] 8 Allergy/831012240( [address](RXNORM) breath [facility]) Hospital Repository Drug metformin/O96068811 Other Unknown [place] 8 Allergy/819544275( 4(RXNORM) [facility]) Hospital Repository Drug cyclobenzaprine/F00 Rash Unknown [place] 8 Allergy/156556915( 6178347(RXNORM) [facility]) Hospital Repository DRUG/409334010(SNO SULFAMETHOXAZOLE-TR HIVES [place] [address]) [facility]ETHOP[facility]IM [facility] [place] Repository DRUG/504579722(SNO SULFAMETHOXAZOLE-TR HIVES [place] [address]) IMETHOPRIM [facility] Main [place] Repository DRUG METFORMIN OTHER: SEE C [place] INGREDI/946525519( Clinic Main SNOMED CT) [place] Repository DRUG CIPROFLOXACIN RASH Med [place] INGREDI/818830836( Clinic Main SNOMED CT) [place] Repository DRUG CYCLOBENZAPRINE RASH Med [place] INGREDI/341685402( Clinic Main SNOMED CT) [place] Repository DRUG CIPROFLOXACIN UNKNOWN [place] INGREDI/004036588( Clinic Main SNOMED CT) [place] Repository DRUG CYCLOBENZAPRINE UNKNOWN [place] INGREDI/037976811( Clinic Main SNOMED CT) [place] Repository Miscellaneous OTHER [place] 7 Allergy/440870133( [facility] Main SNOMED CT) [place] Repository DRUG KETOROLAC OTHER: SEE C [place] 6 INGREDI/929004530( [facility] Main SNOMED CT) [place] Repository DRUG KETOROLAC [place] INGREDI/828727016( [facility] Main SNOMED CT) [place] Repository ENCOUNTERS ENCOUNTERS ADMIT/DISCHARGE ACCOUNT NUMBER ADMITTING ENCOUNTER LOCATION SOURCE CLASS 07/23/2018/07/23/20 [id number] Ambulatory [address] Repository 07/20/2018/07/20/20 [id number] Emergency [address] ding:ED Repository 07/19/2018/07/19/20 [id number] Emergency [address] ding:ED Repository 07/19/2018/07/19/20 [id number] Emergency [address] ding:ED Repository 07/09/2018/07/10/20 [id number] MIGNON CURRY, Ambulatory BBuilding:MS Maxime Recinos [facility] Repository 07/04/2018 [id number] Ambulatory BMSBuilding: [facility] Repository 07/04/2018 [id number] Ambulatory [facility] ding:[facility] Repository 06/26/2018/06/26/20 [id number] Ambulatory BMSBuilding: [place] 18 [facility] Repository 06/25/2018 [id number] Ambulatory BMSBuilding: [place] [facility]MS.[facility] Repository 06/22/2018/06/22/20 [id number] Emergency BBuilding:ER Maxime [address] [place] [address] Repository 05/24/2018/05/24/20 [id number] Emergency BBuilding:ER Maxime [address] [place] [address] Repository 05/23/2018/05/23/20 [id number] Emergency [address] ding:ED Repository 05/23/2018/05/26/20 [id number] Ambulatory [address] Repository 05/20/2018/05/20/20 [id number] Ambulatory MAXIME [facility] [address] [place] [address] ding:[facility]AB [facility] Repository 05/16/2018 [id number] Ambulatory [facility] ding:[facility] Repository 05/14/2018/05/15/20 [id number] MIGNON CURRY, Inpatient BBuilding:MS Maxime GAMBLE W Encounter URRoom: Health 0230Bed: A [facility] Repository 05/13/2018/05/17/20 [id number] Ambulatory [address] ding:DROP [facility] Repository 05/06/2018/05/06/20 [id number] Emergency BBuilding:ER Maxime 18 [facility] Repository 04/17/2018/04/18/20 [id number] Emergency [address] ding:ED Repository 04/10/2018 [id number] Ambulatory BMSBuilding: [place] BMS.[facility] Repository 04/09/2018/04/09/20 [id number] Emergency [address] ding:ED Repository 04/06/2018/04/06/20 [id number] Emergency [address] ding:ED Repository 03/24/2018 [id number] Ambulatory [facility] ding:HPRAD Repository 03/24/2018/03/24/20 [id number] Ambulatory BMSBuilding: [place] 18 [facility] Repository 03/12/2018/03/12/20 [id number] Emergency [address] ding:ED Repository 03/09/2018/03/11/20 [id number] Jose Oseguera Inpatient [place] [facility] 18 Encounter [facility] ding:KN5Sxxs Repository : TH147Qkj: 1 03/09/2018 [id number] Jose Oseguera Ambulatory BMSBuilding: [place] BMS.[facility] Repository 03/09/2018 [id number] Jose Oseguera Ambulatory BMSBuilding: [place] [facility]MS[facility] Repository 03/09/2018 [id number] Jose Oseguera Ambulatory BMSBuilding: [place] BMS.WIP [facility] Repository 03/04/2018/03/04/20 [id number] Emergency Amrcus [facility] 18 [facility] ding:ED Repository 02/26/2018/02/27/20 [id number] Emergency [place] 18 [facility] ding:ED Repository 02/22/2018/02/23/20 [id number] Emergency [place] 18 [facility] ding:ED Repository 02/19/2018/02/20/20 [id number] Emergency [place] 18 [facility] ding:ED Repository 02/05/2018/02/06/20 [id number] Emergency Marcus [address] ding:ED Repository 01/28/2018/01/29/20 [id number] Emergency Marcus [facility] ding:ED Repository 01/22/2018/01/23/20 [id number] Emergency Marcus [address] ding:ED Repository 01/16/2018/01/18/20 [id number] Emergency Marcus [address] ding:ED Repository 01/12/2018/01/13/20 [id number] Emergency [place] [facility] ding:ED Repository 01/11/2018/01/13/20 [id number] Emergency [place] [address] ding:ED Repository 01/09/2018/01/10/20 [id number] Emergency [place] 18 [facility] ding:ED Repository 01/07/2018/01/08/20 [id number] Emergency Marcus Marcus [address] [place] [address] ding:ED Repository 12/31/2017/01/01/20 [id number] Ambulatory [address] Repository 12/31/2017/01/01/20 [id number] Ambulatory [address] Repository 12/31/2017/01/01/20 [id number] Ambulatory [address] Repository 12/31/2017 [id number] Ambulatory [facility] Repository 12/31/2017/01/02/20 [id number] Ambulatory [address] Repository 12/28/2017/12/29/19 [id number] Emergency [address] ding:ED Repository 12/20/2017 [id number] Ambulatory BBuilding:RA [facility]re[facility] Repository 12/18/2017/12/19/19 [id number] Ambulatory [address] Repository 12/16/2017/12/17/19 [id number] Emergency [place] ding:ED Repository 12/12/2017/12/13/19 [id number] Ambulatory [address] ding:RAD [facility] Repository 12/11/2017/12/12/19 [id number] Emergency [address] ding:ED Repository 12/05/2017/12/06/19 [id number] Emergency [address] ding:ED Repository 11/24/2017/11/25/19 [id number] Emergency [address] ding:ED Repository 11/21/2017/11/26/19 [id number] Ambulatory [address] ding:DROP [facility] Repository 11/06/2017/11/11/19 [id number] Ambulatory [address] ding:DROP [facility] Repository 10/22/2017/10/23/19 [id number] Ambulatory [address] Repository 10/11/2017/10/11/19 [id number] Ambulatory [address] Repository 08/21/2017/08/25/19 [id number] Ambulatory [address] ding:DROP [facility] Repository PAYERS PAYERS ENCOUNTER GUARANTOR PAYER SUBSCRIBER SOURCE 07/20/2018 CRYSTAL Ann Primary CRYSTAL [id number] Insurance:DARIAN NOEL: Community [place] [employer] PPOPolic [id number] Number: Repository [id number]: 234 [id number] [phone] (HP) Date:8885-73-10DG [facility] [id number] [place] [address]HT: 07/20/2018 Secondary NOT GIVENUNK [place] Insurance:SELF PAY [facility] Number: Effective Repository Date:2018-07-20 07/19/2018 CRYSTAL L Primary CRYSTAL L [place] [id number] Insurance:ANTHEM WINESDOB: Community [place] PPOPolicy [id number] Number: Repository [address]Qgv: (234) [id number] [phone] () Date:1914-33-79ZO[address] [address]OY: 07/19/2018 Secondary NOT GIVENUNK [place] Insurance:SELF PAY [facility] Number: Effective Repository Date:2018-07-19 07/19/2018 CRYSTAL L Primary CRYSTAL L [place] [id number] Insurance:ANTHEM WINESDOB: Community [place] [employer] PPOPolicy [id number] [place] Number: Repository [phone]: (234) [id number] [phone] () Date:4375-90-31QO[address] [address]FE: 07/19/2018 Secondary NOT GIVENUNK [place] Insurance:SELF PAY [facility] Number: Effective Repository Date:2018-07-19 07/09/2018 CRYSTAL L Primary CRYSTAL L [facility] WINESDOB: Insurance:ANTHEM WINESDOB: [facility] [id number] [place] [address] Number: [place], [place] [id number] [place], [place] [address]Rsx: (234) Date:2018-07-09 74[address]Gwr: [id number] [phone] ()Tel: ([phone]) Name:O Box () () [id number], [place] 000-0000 () [address]DX: 07/04/2018 CRYSTAL L Primary CRYSTAL L [place] [id number] Insurance:ANTHEM WINESDOB: Community [place] [employer] PPOPolicy [id number] [place] Number: Repository [address]Tbh: (234) [id number] [phone] () Date:7929-71-87QZ [address] [address]SQ: 07/04/2018 Secondary NOT GIVENUNK [place] Insurance:SELF PAY [facility] Number: Effective Repository Date:2018-07-04 07/04/2018 CRYSTAL L Primary CRYSTAL L [place] [id number] Insurance:ANTHEM WINESDOB: Community [place] [employer] PPOPolicy [id number] [place] Number: Repository [address]Kum: (234) [id number] [phone] (HP) Date:4144-23-14[address] [address]YB: 07/04/2018 Secondary NOT GIVENUNK [place] Insurance:SELF PAY [facility] Number: Effective Repository Date:2018-06-26 06/26/2018 CRYSTAL L Primary CRYSTAL L [place] [id number] Insurance:ANTHEM WINESDOB: Community [place] [employer] PPOPolicy [id number] Side, [place] Number: Repository [address]Fax: (234) [id number] [phone] () Date:9856-23-72AS [address] [address]LX: 06/26/2018 Secondary NOT GIVENUNK [place] Insurance:SELF PAY [facility] Number: Effective Repository Date:2018-06-25 06/25/2018 CRYSTAL L Primary CRYSTAL L [place] [id number] Insurance:ANTHEM WINESDOB: Community [place] [employer] PPOPolicy [id number] [place], [place] Number: Repository [address]Aot: (234) [id number] [phone] (HP) Date:4669-92-11CV [address] [address]UK: 06/25/2018 Secondary NOT GIVENUNK [place] Insurance:SELF PAY [facility] Number: Effective Repository Date:2018-06-25 06/22/2018 CRYSTAL L [facility] Insurance:DARIAN PETERSONSDOB: [facility] [id number] Repository CRISTINA Number: CRISTINA [place] [id number] [facility] [place] [address]Edb: (234) Date:2018-06-22 [address]Rin: 2621-89-59Mnzh [phone] (HP)Tel: (999) Name:N[address] Box (HP) (WP) [id number], [place] 000-0000 (WP) [address]HM: 05/24/2018 CRYSTAL L Primary CRYSTAL L [facility] WINESDOB: Insurance:DARIAN PETERSONSDOB: [facility] [id number] Repository CRISTINA Number: CRISTINA [place]EN[place] [id number] [place], [place] [address]Wyz: (234) Date:2018-05-24 [address]Whr: 4359-04-79Ygll [phone] (HP)Tel: (999) Name:[address] Box (HP) (WP) [id number], [place] 000-0000 (WP) [address]PD: 05/23/2018 CRYSTAL L Primary CRYSTAL L [place] [id number] Insurance:DARIAN WINESDOB: Community [place] [employer] PPOPolicy [id number] [place], [place] Number: Repository [address]Fqy: (234) [id number] [phone] (HP) Date:7020-02-01ZO [address]SNZXCHA, [place] [address]XM: 05/23/2018 Secondary NOT GIVENUNK [place] Insurance:SELF PAY [facility] Number: Effective Repository Date:2018-05-23 05/20/2018 CRYSTAL L Primary CRYSTAL L [facility] WINESDOB: Insurance:NAYELIEM WINESDOB: [facility] [id number] Repository [place] Number: CRISTINA [place] [id number] [facility] [place] [address]Sgq: (234) Date:2018-05-20 04457Jfr: 2614-14-00Zees [phone] (HP)Tel: (999) Name:NPO Box (HP) (WP) [phone], [place] 000[address]0000 (WP) [address]BS: 05/16/2018 CRYSTAL L Primary CRYSTAL L [place] [id number] Insurance:DARIAN PETERSONSDOB: Community [place] [employer] PPOPolicy [id number] [place], [place] Number: Repository [address]Xls: (234) [id number] [phone] (HP) Date:8072-58-71EN [address] [place] [address] [place] [id number]: 05/16/2018 Secondary NOT GIVENUNK [place] Insurance:SELF PAY [facility] Number: Effective Repository Date:2018-05-16 05/14/2018 CRYSTAL L Primary CRYSTAL L [facility] WINESDOB: Insurance:NAYELIEM WINESDOB: [facility] [id number] Repository [place] Number: [place]STINA [place], [place] [id number] [place], [place] [address]Avl: (234) Date:2018-05-14 725[address]Uvq: 2097-49-63Vjnf [phone] (HP)Tel: (999) Name:N[address] Box (HP) (WP) [phone], [place] 000-0000 (WP) [address]FS: 05/14/2018 Secondary CRYSTAL L [facility] Insurance:MEDICARE WINESDOB: [facility] Number: [id number] Repository [id number] [place] Date:2018-05-14 - [place] 5215-22-03Mtmb [address]Dip: (234) Name:MMail Code [phone] [address] (HP)Tel: (000) [phone] [place], [place] 000-0000 (WP) [address]QA: 05/13/2018 CRYSTAL L Primary CRYSTAL L [facility] WINESDOB: Insurance:[facility] WINESDOB: [facility] [id number] Repository [place] Number: [place] [id number] [facility], [place] [address]Rdt: (234) Date:2018-05-13 [address]Fut: 0440-67-66Flga [phone] (HP)Tel: (999) Name:N[address] Box (HP) (WP) [phone], [place] 000-0000 (WP) [address]FW: 05/06/2018 CRYSTAL L Primary CRYSTAL [facility] WINESDOB: Insurance:[facility] WINESDOB: [facility] [id number] Repository [place] Number: [place]ST[place] [id number] [facility], [place] [address]Pgr: (234) Date:2018-05-06 [address]Vum: [id number] [phone] (HP)Tel: (999) Name:NPO Box (HP) (WP) [id number], [place] 000-0000 (WP) [address]JS: 04/17/2018 CRYSTAL L Primary CRYSTAL L [place] [id number] Insurance:ANTHEM WINESDOB: Community [place] [employer] PPOPolicy [id number] [facility] [place] Number: Repository [address]Mdc: (234) [id number] [phone] () Date:2436-95-35[address]BZWIRVP, [place] [address]UH: 04/17/2018 Secondary NOT GIVENUNK [place] Insurance:SELF PAY [facility] Number: Effective Repository Date:2018-04-17 04/10/2018 Crystal L Primary Crystal L Marcus [id number] Insurance:ANTHEM WinesDOB: Community [place] [employer] PPOPolicy [id number] [place] Number: Repository [address]Gwc: (234) [id number] [phone] () Date:8672-02-16GJ [address]FGWECDH, [place] [address]EG: 04/10/2018 Secondary NOT GIVENUNK [place] Insurance:SELF PAY [facility] Number: Effective Repository Date:2018-03-11 04/09/2018 CRYSTAL L Primary CRYSTAL L Marcus [id number] Insurance:ANTHEM WINESDOB: Community [place] [employer] PPOPolicy [id number] [place] Number: Repository [address]Tkf: (234) [id number] [phone] () Date:1752-09-98WL [address]QSRXIUI [place] [id number]: 04/09/2018 Secondary NOT GIVENUNK [place] Insurance:SELF PAY [facility] Number: Effective Repository Date:2018-04-09 04/06/2018 CRYSTAL L Primary CRYSTAL L Marcus [id number] Insurance:ANTHEM WINESDOB: Community [place] [employer] PPOPolicy [id number] [place] Number: Repository [address]502Xwm: (234) [id number] [phone] () Date:1967-31-97LY [address]XYJEZYO, [place] [address]VU: 04/06/2018 Secondary NOT GIVENUNK [place] Insurance:SELF PAY [facility] Number: Effective Repository Date:2018-04-06 03/24/2018 CRYSTAL L Primary CRYSTAL L Marcus [id number] Insurance:ANTHEMPolic WINESDOB: Community [place]: [id number] [id number] Repository [address]Aao: (234) Date:6414-20-14WE [phone] () 187101SQFNNYP, [place] [address]TV: 03/24/2018 Secondary NOT GIVENUNK Marcus Insurance:SELF PAY [facility] Number: Effective Repository Date:2018-03-24 03/24/2018 CRYSTAL L Primary CRYSTAL L Marcus [id number] Insurance:ANTHEMPolic WINESDOB: [facility] y Number: [id number] [id number] Repository [address]Jze: (234) Date:0657-08-70AC [phone] () 313498BQPXKKB, [place] [address]PZ: 03/24/2018 Secondary NOT GIVENUNK [place] Insurance:SELF PAY [facility] Number: Effective Repository Date:2018-03-24 03/12/2018 Crystal L Primary Crystal L [place] [id number] Insurance:ANTHEM WinesDOB: Community [place] [employer] PPOPolicy [id number] [place] Number: Repository [address]Oyi: (234) [id number] [phone] () Date:2578-26-75EX [address]HNGSRXU, [place] [address]WA: 03/12/2018 Secondary NOT GIVENUNK [place] Insurance:SELF PAY [facility] Number: Effective Repository Date:2018-03-12 03/09/2018 Crystal L Primary Crystal L [place] [id number] Insurance:ANTHEM WinesDOB: Community [place] [employer] PPOPolicy [id number] Number: Repository [address]Gft: (234) [id number] [phone] () Date:1735-59-64CM [address]85VHGOCMT, [place] [address]EA: 03/09/2018 Secondary NOT GIVENUNK Marcus Insurance:SELF PAY [facility] Number: Effective Repository Date:2018-03-09 03/09/2018 Crystal L Primary Crystal L [place] [id number] Insurance:ANTHEM WinesDOB: Community [place] [employer] PPOPolicy [id number] Number: Repository [address]Grv: 234 [id number] [phone] () Date:5058-20-29DP [address]SUSTLYI [place] [address]TZ: 03/09/2018 Secondary NOT GIVENUNK Marcus Insurance:SELF PAY [facility] Number: Effective Repository Date:2018-03-09 03/09/2018 Crystal L Primary Crystal L [place] [id number] Insurance:ANTHEM WinesDOB: Community [place] [employer] PPOPolicy [id number] Number: Repository [address]Tzu: 234 [id number] [phone] () Date:5504-60-07ZI [address]NXWPPRX [place] [address]HD: 03/09/2018 Secondary NOT GIVENUNK [place] Insurance:SELF PAY [facility] Number: Effective Repository Date:2018-03-09 03/09/2018 Crystal L Primary Crystal L Marcus [id number] Insurance:ANTHEM WinesDOB: Community [place] [employer] PPOPolicy [id number] Side[place] Number: Repository [address]Rva: 234 [id number] [phone] () Date:0648-76-56BN [address]IVXIQMY, [place] [address]UN: 03/09/2018 Secondary NOT GIVENUNK Marcus Insurance:SELF PAY [facility] Number: Effective Repository Date:2018-03-09 03/04/2018 Crystal L Primary Crystal L Marcus [id number] Insurance:ANTHEM WinesDOB: Community [place] [employer] PPOPolicy [id number] [facility] [place] Number: Repository [address]Rtv: (234) [id number] [phone] (HP) Date:6568-24-56KR [address]WIVRGBK, [place] [address]SI: 03/04/2018 Secondary NOT GIVENUNK Marcus Insurance:SELF PAY [facility] Number: Effective Repository Date:2018-03-04 02/26/2018 Crystal L Primary Crystal L Lindrith [id number] Insurance:ANTHEM WinesDOB: Community [place] [employer] PPOPolicy [id number] [facility] [place] Number: Repository [address]Fef: (234) [id number] [phone] () Date:7493-90-04WX [address]RFCSEPU, [place] [address]JH: 02/26/2018 Secondary NOT GIVENUNK Marcus Insurance:SELF PAY [facility] Number: Effective Repository Date:2018-02-26 02/22/2018 Crystal L Primary Crystal L [place] [id number] Insurance:ANTHEM WinesDOB: Community [place] [employer] PPOPolicy [id number] [place] Number: Repository [address]Thh: (234) [id number] [phone] () Date:1768-23-87GY [address] [place] [address] [place] [address]UC: 02/22/2018 Secondary NOT GIVENUNK Marcus Insurance:SELF PAY [facility] Number: Effective Repository Date:2018-02-22 02/19/2018 Crystal L Primary Crystal L Marcus [id number] Insurance:ANTHEM WinesDOB: Community [place] [employer] PPOPolicy [id number] [facility] [place] Number: Repository [address]6667Nqq: (234) [id number] [phone] () Date:2563-12-53BX [address]DBINEMA, [place] [address]XQ: 02/19/2018 Secondary NOT GIVENUNK [place] Insurance:SELF PAY [facility] Number: Effective Repository Date:2018-02-19 02/05/2018 Crystal L Primary Crystal L [place] [id number] Insurance:ANTHEM WinesDOB: Community [place] [employer] PPOPolicy [id number], [place] Number: Repository [address]Mhy: (234 [id number] [phone] (HP) Date:4897-75-15QC[address] [address]EM: 02/05/2018 Secondary NOT GIVENUNK [place] Insurance:SELF PAY [facility] Number: Effective Repository Date:2018-02-05 01/28/2018 Crystal L Primary Crystal L [place] [id number] Insurance:ANTHEM WinesDOB: Community [place] [employer] PPOPolicy [id number], [place] Number: Repository [address]Plb: (234 [id number] [phone] () Date:2619-22-04HI [address] [place] [address]TD: 01/28/2018 Secondary NOT GIVENUNK [place] Insurance:SELF PAY [facility] Number: Effective Repository Date:2018-01-28 01/22/2018 Crystal L Primary Crystal L [place] [id number] Insurance:ANTHEM WinesDOB: Community [place] [employer] PPOPolicy [id number], [place] Number: Repository [address]Udp: (234) [id number] [phone] (HP) Date:2242-03-20RF [address] [place] [address]GR: 01/22/2018 Secondary NOT GIVENUNK Marcus Insurance:SELF PAY [facility] Number: Effective Repository Date:2018-01-22 01/16/2018 Crystal L Primary Crystal L [place] [id number] Insurance:ANTHEM WinesDOB: Community [place] [employer] PPOPolicy [id number], [place] Number: Repository [address]Vym: (234) [id number] [phone] (HP) Date:4201-10-83EM [address]STPABJQNOAH CARRANZA [address]BF: 01/16/2018 Secondary NOT GIVENUNK [place] Insurance:SELF PAY [facility] Number: Effective Repository Date:2018-01-16 01/12/2018 Crystal L Primary Crystal L Marcus [id number] Insurance:ANTHEM WinesDOB: Community [place] [employer] PPOPolicy [id number] Number: Repository [address]Leu: (234 [id number] [phone] () Date:4255-91-89KE [address]GORZAYC, [place] [address]TS: 01/12/2018 Secondary NOT GIVENUNK [place] Insurance:SELF PAY [facility] Number: Effective Repository Date:2018-01-12 01/11/2018 Crystal L Primary Crystal L Marcus [id number] Insurance:ANTHEM WinesDOB: Community [employer] [employer] PPOPolicy [id number] [place] [address] Number: Repository [address]Maw: (234 [id number] [phone] () Date:4134-26-12ST [address]RXYZYMG, [place] [address]YH: 01/11/2018 Secondary NOT GIVENUNK [place] Insurance:SELF PAY [facility] Number: Effective Repository Date:2018-01-11 01/09/2018 Crystal L Primary Crysatl L Marcus [id number] Insurance:ANTHEM WinesDOB: Community [employer] [employer] PPOPolicy [id number] Number: Repository [address]Qmv: (234 [id number] [phone] () Date:6562-27-18JU [address] [address]MQ: 01/09/2018 Secondary NOT GIVENUNK [place] Insurance:SELF PAY [facility] Number: Effective Repository Date:2018-01-09 01/07/2018 Crystal L Primary Crystal L Marcus [id number] Insurance:ANTHEM WinesDOB: Community [place] [employer] PPOPolicy [id number] [place] Number: Repository [address]Tlo: (234) [id number] [phone] () Date:0085-00-23MW [address] [place] [address] 98[address]CL: 01/07/2018 Secondary NOT GIVENUNK [place] Insurance:SELF PAY [facility] Number: Effective Repository Date:2018-01-07 12/28/2017 Crystal L Primary Crystal L [place] [id number] Insurance:ANTHEM WinesDOB: Community [place] [employer] PPOPolicy [id number] Side[place] Number: Repository [address]Emt: (234) [id number] [phone] () Date:5085-72-00EW [address] [place] [address]25[address]DM: 12/28/2017 Secondary NOT GIVENUNK Marcus Insurance:SELF PAY [facility] Number: Effective Repository Date:2017-12-28 12/20/2017 CRYSTAL L Primary CRYSTAL L [facility] WINESDOB: Insurance:ANTHEM WINESDOB: [facility] [id number] Number: [place], [place] [id number] [place], [place] [address]Sqy: (234) Date:2017-12-19 13984Ykj: 4724-21-16Tkxg [phone] ()Tel: ([phone]) Name:[address] Box () () [id number] [place] 000-0000 () [address]YJ: 12/16/2017 Crystal L Primary Crystal L Marcus [id number] Insurance:ANTHEM WinesDOB: Community [place] [employer] PPOPolicy [id number] [place] Number: Repository [address]Edt: (234) [id number] [phone] () Date:8289-08-66QV [address] [place] [address]OH: 12/16/2017 Secondary NOT GIVENUNK Marcus Insurance:SELF PAY [facility] Number: Effective Repository Date:2017-12-16 12/12/2017 CRYSTAL L Primary CRYSTAL L [facility] WINESDOB: Insurance:ANTHEM WINESDOB: [facility] [id number] [place] [address] Number: [place], [place] [id number] [place], [place] [address]Eit: (234) Date:2017-12-02 37206Tzp: 1161-43-08Amai [phone] ()Tel: ([phone]) Name:N[address] Box () () [address] [place] [address] ID 000-0000 () [address]48[address]SD: 12/11/2017 Crystal L Primary Crystal L [place] [id number] Insurance:ANTHEM WinesDOB: Community [employer] [employer] PPOPolicy [id number] [place] Number: Repository [address]Iir: 234) [id number] [phone] () Date:5019-18-56OX [address] [place] [address] 94[address]ZN: 12/11/2017 Secondary NOT GIVENUNK Marcus Insurance:SELF PAY [facility] Number: Effective Repository Date:2017-12-11 12/05/2017 Crystal L Primary Crystal L Marcus [id number] Insurance:ANTHEM WinesDOB: Community [employer] [employer] PPOPolicy [id number] Side, [place] Number: Repository [address]Ojw: 234 [id number] [phone] () Date:4923-72-60YW [address] [place] [address] ID 420[address]EZ: 12/05/2017 Secondary NOT GIVENUNK Marcus Insurance:SELF PAY [facility] Number: Effective Repository Date:2017-12-05 11/24/2017 Crystal L Primary Crystal L [place] [id number] Insurance:ANTHEM WinesDOB: Community [employer] [employer] PPOPolicy [id number] [place] Number: Repository [address]Wnp: (234) [id number] [phone] (HP) Date:2147-42-15UG [address]CFNZDSB, [place] [address]EW: 11/24/2017 Secondary NOT GIVENUNK Marcus Insurance:SELF PAY [facility] Number: Effective Repository Date:2017-11-24 11/21/2017 CRYSTAL L Primary CRYSTAL L [facility] WINESDOB: Insurance:ANTHEM WINESDOB: [facility] [id number] Repository [place] Number: [place] [facility] [place] [id number] [place], [place] [address]Jzq: (234) Date:2017-11-21 77985Fbg: 0040-60-18Tzyk [phone] (HP)Tel: (999) Name:N[address] Box (HP) (WP) [id number], [place] 000-0000 (WP) [address]MW: 11/06/2017 CRYSTAL L Primary CRYSTAL L [facility] WINESDOB: Insurance:ANTHEM WINESDOB: [facility] [id number] Repository [place] Number: [place], [place] [id number] [place], [place] [address]Zyh: (234) Date:2017-11-06 986[address]Sqo: 2982-89-55Ybnb [phone] (HP)Tel: (999) Name:N[address] Box (HP) (WP) [id number], [place] 000-0000 (WP) [address]GU: 08/21/2017 CRYSTAL L Primary CRYSTAL L [facility] WINESDOB: Insurance:ANTHEM SR WINESDOB: [facility] [id number] [facility] [id number] Repository [place] MEDICAREPolicy ANGÉLICA BLAND Number: ALYCIAZBIGNIEWMIRANDA ANGÉLICA [address]Tfr: (082) [id number] 530[address]Kgf: Date:2017-08-21 [phone] ()Tel: ([phone]) [phone] () () Name:PARKER Arechiga 000-0000 (WP) [id number], [place] [address]PY:
== END 2018-07-20 07:18 | disposition home or self-care (01) ==
PROVIDERS: Emergency Provider Emergency Medicine; Family Provider Family Medicine; PCP Family Medicine
DX: R06.00 Dyspnea, unspecified (principal); I11.0 Hypertensive heart disease with heart failure; I50.9 Heart failure, unspecified; E66.9 Obesity, unspecified; J98.11 Atelectasis; G89.4 Chronic pain syndrome; F32.9 Major depressive disorder, single episode, unspecified; E11.43 Type 2 diabetes mellitus with diabetic autonomic (poly)neuropathy; K31.84 Gastroparesis; K21.9 Gastro-esophageal reflux disease without esophagitis; E78.5 Hyperlipidemia, unspecified; I25.2 Old myocardial infarction; I48.0 Paroxysmal atrial fibrillation; G40.909 Epilepsy, unspecified, not intractable, without status epilepticus; I25.10 Atherosclerotic heart disease of native coronary artery without angina pectoris; Z86.2 Personal history of diseases of the blood and blood-forming organs and certain disorders involving the immune mechanism; Z87.19 Personal history of other diseases of the digestive system; Z90.49 Acquired absence of other specified parts of digestive tract; Z79.82 Long term (current) use of aspirin; Z79.4 Long term (current) use of insulin; Z79.899 Other long term (current) drug therapy
CPT/HCPCS: 71250; 80048; 81001; 84484; 85025; 85379; 93005; 94640; 96374; 96375; 99284; A4216; J2405

== ENCOUNTER 2018-08-17 12:29 | Emergency (ER) | payer MEDICARE, SELFPAY ==
[2018-07-20 01:55] VITALS: BMI 44.2
[2018-08-17 12:31] VITALS: BP 165/73; PULSE 101; RESP 17; TEMP 36.7; O2SAT 93; BMI 46.0
--- NOTE | 2018-08-17 12:39 | RAD_ITS ---
STUDY: X-RAY CHEST REASON FOR EXAM: Female, 62 years old. Cough with respiratory issues. TECHNIQUE: Frontal and lateral views of the chest. COMPARISON: July 19, 2018 FINDINGS: There is low volume inspiration. There is no demonstrated pleural abnormality. There is cardiomegaly unchanged. Normal mediastinum and judith. Normal visualized pulmonary arteries. There is atherosclerotic calcification of the aortic arch with tortuosity. Normal visualized thoracic spine. Normal visualized ribs, clavicles, and shoulders. There is no demonstrated abnormality of the visualized soft tissue structures of the upper abdomen. RAD/Chest PA and Lateral IMPRESSION: Cardiomegaly with low volume inspiration. No acute pathology. Electronically Signed: Sterling Fields MD at 15:00 EST , Service support ,
--- NOTE | 2018-08-17 12:39 | EKG12_ITS ---
Test Reason : MK Blood Pressure : / mmHG Vent. Rate : 097 BPM Atrial Rate : 097 BPM P-R Int : 000 ms QRS Dur : 088 ms QT Int : 360 ms P-R-T Axes : 000 -26 039 degrees QTc Int : 457 ms Sinus rhythm Leftward axis Abnormal ECG Confirmed by JOSE MANUEL CURRY, SHAHIDA ([id number]), dictionary editor MAIKEL MULLEN ([id number]) on 08/20/2018 2:27:39 PM Referred By: COUGH Confirmed By:SHAHIDA RICHARD MD
--- NOTE | 2018-08-17 12:44 | ED.VISSUMM ---
- ER Visit Summary Date of Service: 08/17/18 Chief Complaint: Cough History of Present Illness: The patient is a 62 F presents to the emergency department cough. The patient had symptoms for the past 2 days. She describes cough with productive sputum. She denies any chest pain. She denies any fevers or chills. She denies any history of lung disease. Patient has had recurrent bronchitis and states that this feels similar. She does not smoke. She has not on oxygen at home. She states that she has an appointment with her PCP tomorrow, but just did not feel well enough. Physical Examination: Vital signs reviewed General: Well-nourished, well-developed Head: Normocephalic, atraumatic Eyes: Pupils equal and reactive, extraocular muscles intact Neck, supple, no lymphadenopathy Heart: Regular rate and rhythm Respiratory: No distress, wheezing throughout Abdomen: Soft, nontender, nondistended, no peritoneal signs Back: Nontender Extremities: Nontender, no edema, no cords Skin: Normal color no rash Neuro: Alert and oriented, no focal or lateralizing deficits Test Results: [] Emergency Department Course and Treatment: Patient presents with cough with productive sputum. She has not had fevers or chills. She did have wheezing all lung davalos. Chest x-ray was obtained. There is no evidence of focal infiltrate. There is no pneumothorax. There is no significant pulmonary edema. Patient was given nebulized breathing treatments with improvement of aeration. She is an insulin-dependent diabetic and does not do well with steroids. I am to treat her with doxycycline, cough suppressant, and antiemetics. She does have follow-up tomorrow with her primary care. She will keep this. The patient will be discharged home. Treatment Plan: [] Disposition: Discharge Impression: 1. Bronchitis with bronchospasm This note was generated with [employer] dictation software. It may contain incorrect words, spelling, and punctuation that were not noted in review of the chart prior to signing ED Disposition - Plan for ED Patient: Chief Complaint: Cough Instructions: ED Upper Resp Infec Abx Tx Prescriptions: proMETHazine tablet [Phenergan] 25 mg PO Q6H PRN PRN #10 tab PRN Reason: Nausea Benzonatate [Tessalon Perle] 200 mg PO TID PRN PRN #20 cap PRN Reason: Cough Doxycycline 100 mg PO BID #20 cap Referrals: Devan Parks MD [Primary Care Provider] -
[2018-08-17] MEDS: Ipratropium/Albuterol Sulfate 3 ML AMPUL.NEB INHALATION (12:51)
[2018-08-17] MEDS: Albuterol 2.5 MG/3 ML VIAL.NEB. INHALATION ×2 (12:51→13:14)
[2018-08-17 13:14] VITALS: PULSE 92; RESP 18
[2018-08-17 14:13] VITALS: PULSE 113; RESP 20; TEMP 36.7; O2SAT 98
[2018-08-17 14:45] VITALS: O2SAT 93
== END 2018-08-17 15:41 | disposition home or self-care (01) ==
PROVIDERS: Emergency Provider Emergency Medicine; Family Provider Family Medicine; PCP Family Medicine
DX: J40 Bronchitis, not specified as acute or chronic (principal); J98.01 Acute bronchospasm; E66.9 Obesity, unspecified; E11.9 Type 2 diabetes mellitus without complications; I10 Essential (primary) hypertension; E78.00 Pure hypercholesterolemia, unspecified; Z79.82 Long term (current) use of aspirin; Z79.4 Long term (current) use of insulin; Z79.899 Other long term (current) drug therapy
CPT/HCPCS: 71046; 93005; 94640; 99283

== ENCOUNTER 2018-08-18 21:03 | Inpatient (IN) | payer MEDICARE, SELFPAY ==
[2018-08-17 12:31] VITALS: BMI 46.0
[2018-08-18 21:04] VITALS: BP 151/79; PULSE 83; RESP 16; TEMP 36.7; O2SAT 94; BMI 46.0
--- NOTE | 2018-08-18 21:17 | EKG12_ITS ---
Test Reason : SOB Blood Pressure : / mmHG Vent. Rate : 072 BPM Atrial Rate : 072 BPM P-R Int : 150 ms QRS Dur : 088 ms QT Int : 432 ms P-R-T Axes : -14 -23 027 degrees QTc Int : 473 ms Normal sinus rhythm Minimal voltage criteria for LVH, may be normal variant Borderline ECG Confirmed by JOSE MANUEL CURRY, SHAHIDA ([id number]), editor sound MAIKEL MULLEN ([id number] on 08/21/2018 1:38:49 PM Referred By: Jacques Santos Confirmed By:SHAHIDA RICHARD MD
[2018-08-18 21:27] VITALS: PULSE 80; RESP 18
[2018-08-18] MEDS: Ipratropium/Albuterol Sulfate 3 ML AMPUL.NEB INHALATION (21:27)
--- NOTE | 2018-08-18 21:36 | ED.DCSUM_ITS ---
- ER Visit Summary Date of Service: 08/18/18 Chief Complaint: Shortness of breath, cough History of Present Illness: The patient is a 62 F presenting with shortness of breath, cough. Patient was in the emergency department yesterday for similar complaints. At that time she was diagnosed with bronchitis. She was started on Tessalon Perles. Patient continues to have the same symptoms. She denies chest pain or fever. She states she is coughing so hard she occasionally vomits. She is not a smoker. She denies PE/DVT risk factors. She denies other complaints. Physical Examination: Vitals are stable. Patient is afebrile. Alert no acute distress. HEENT exam is unremarkable. Neck is supple. Lungs expiratory wheezing bilaterally. Heart is regular rate and rhythm. Abdomen is soft nontender nondistended. Extremities are unremarkable. Skin is warm and dry. No focal neurologic deficit. Remainder of exam is unremarkable. Emergency Department Course and Treatment: EKG is sinus rate of 72 with no acute ischemic changes. Patient was given albuterol, Atrovent aerosol. Chest xray shows bilateral lower lobe infiltrates greater on the right. CBC normal except hemoglobin 11.0. Chemistries normal except glucose 173, creatinine 1.19. Troponin is negative. On reevaluation her O2 sat is 88% on room air. She was given Rocephin and Zithromax IV. Discussed with the hospitalist for admission. Disposition: Admission Impression: Community acquired pneumonia, hypoxia This note was generated with Language[employer] dictation software. It may contain incorrect words, spelling, and punctuation that were not noted in review of the chart prior to signing ED Disposition - Plan for ED Patient: Chief Complaint: Shortness of Breath Referrals: Devan Parks MD [Primary Care Provider] -
--- NOTE | 2018-08-18 21:37 | RAD_ITS ---
STUDY: X-RAY CHEST REASON FOR EXAM: Female, 62 years old. Short of breath TECHNIQUE: AP portable COMPARISON: August 17, 2018 FINDINGS: Bilateral lower lobe infiltrates greater on the right.. There is no demonstrated pleural abnormality. Heart is mildly enlarged. Normal mediastinum and judith. Normal visualized pulmonary arteries. Normal visualized aortic arch and descending thoracic aorta. Normal visualized thoracic spine. Normal visualized ribs, clavicles, and shoulders. There is no demonstrated abnormality of the visualized soft tissue structures of the upper abdomen. RAD/Chest 1 View (Portable) IMPRESSION: Bilateral lower lobe infiltrates greater on the right Electronically Signed: Ray Joy MD at 22:05 EST , Service support ,
[2018-08-18 22:00] VITALS: BP 158/65; PULSE 83; RESP 17; TEMP 37.2; O2SAT 93
[2018-08-18 22:14] LABS: Absolute Lymphocyte Count 1.49 X10^3/ul (0.83-4.51); Absolute Neutrophil Count 6.9 X10^3/uL (2.0-7.7); Basophil# 0.03 X10^3/uL; Basophil% 0.3 % (0-1); Eosinophil# 0.09 X10^3/uL; Eosinophils% 0.9 % (0-5); Hematocrit 34.5 % (37-47); Lymphocyte # 1.49 X10^3/ul (4.0); Lymphocyte % 15.5 % (19-41); Mean Corp Hgb Conc 31.9 g/gl (32-36); Mean Corpuscular Hgb 25.5 pg (27.0-32.0); Mean Corpuscular Volume 79.9 fL (81-99); Mean Platelet Vol. 9.4 fl (6.2-12.0); Monocyte# 1.09 X10^3/uL; Monocyte% 11.4 % (0-10); Neutrophil # 6.88 X10^3/uL (2.7-7.7); Neutrophil % 71.7 % (47-70); POSITIVE COUNT NO; POSITIVE DIFFERENTIAL NO; POSITIVE MORPHOLOGY NO; Platelet Count 308 K/mm3 (150-450); RBC Distribution Width SD 47.1 fl (35.1-43.9); Red Blood Count 4.32 M/mm3 (4.2-5.4); White Blood Count 9.6 K/mm3 (4.4-11.0)
[2018-08-18 22:34] LABS: Anion Gap 10 (5-15); BUN 13 mg/dL (7-18); BUN/Creat Ratio 10.9 RATIO (10-20); Calcium,Total 9.3 mg/dL (8.5-10.1); Chloride 97 mmol/L (98-107); Creatinine, Serum 1.19 mg/dL (0.55-1.02); EST Glomerular Filtration Rate 49 mL/min (>60); Est Glom Filt Rate - Afr Amer 59 mL/min (>60); Glucose 173 mg/dL (74-106); Potassium 3.5 mmol/L (3.5-5.1); Sodium Level 137 mmol/L (136-145)
[2018-08-18] MEDS: Ondansetron 4 MG/2 ML Vial IV (22:37)
--- NOTE | 2018-08-18 22:44 | PCM.HP.STD ---
Problem List (1) Community acquired pneumonia Status: Acute History of Present Illness Date of Admission: 08/18/18 Chief Complaint: Shortness of breath The patient is a 62 year old F with a significant history of paroxysmal A. fib; obesity; heart failure; diabetes mellitus; hypertension; and hyperlipidemia who presented with 3-day history of progressively worsening shortness of breath. Associated with her symptoms is nausea, vomiting, malaise, fatigue, shortness of breath at rest which increases with exertion, cough with clear phlegm and posttussive emesis and a runny nose. At emergency department it was noted that on room air her oxygen saturation was 88%. Her chest x-ray showed bilateral lower lobe infiltrates with right greater than left. At emergency department patient was given breathing treatments; Ceftriaxone, azithromycin and Zofran. This is patient's second visit to the emergency department about 24 hours. She was at our emergency department a day before presentation and she was diagnosed with bronchitis and she was discharged home on doxycycline, cough suppressants and antiemetics. Past Medical History Past Medical History (Chronic Problems): Chronic Problems (Last Reviewed 08/19/18 @ 04:36 by Jacques Santos MD) Congestive heart failure (Chronic) Type 2 diabetes mellitus (Chronic) 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) Diabetic gastroparesis (Chronic) Weakness of both lower extremities (Chronic) GERD (gastroesophageal reflux disease) (Chronic) Seizure disorder (Chronic) Chronic anticoagulation (Chronic) Paroxysmal atrial fibrillation (Chronic) Chronic pain syndrome (Chronic) DM2 (diabetes mellitus, type 2) (Chronic) Takotsubo cardiomyopathy (Chronic) Iron deficiency anemia (Chronic) Diverticulitis (Chronic) Depression (Chronic) Morbid obesity with BMI of 40.0-44.9, adult (Chronic) HLD (hyperlipidemia) (Chronic) Benign essential HTN (Chronic) Medical History: Medical History (Last Reviewed 08/19/18 @ 04:36 by Jacques Santos MD) Congestive heart failure (Chronic) I50.9 Type 2 diabetes mellitus (Chronic) E11.9 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) I25.2 Diabetic gastroparesis (Chronic) E11.43, K31.84 SOB (shortness of breath) (Acute) R06.02 Acute bronchitis (Inactive) J20.9 Weakness of both lower extremities (Chronic) R29.898 GERD (gastroesophageal reflux disease) (Chronic) K21.9 Seizure disorder (Chronic) G40.909 Chronic anticoagulation (Chronic) Z79.01 Paroxysmal atrial fibrillation (Chronic) I48.0 Chronic pain syndrome (Chronic) G89.4 DM2 (diabetes mellitus, type 2) (Chronic) E11.9 Takotsubo cardiomyopathy (Chronic) I51.81 Iron deficiency anemia (Chronic) D50.9 Diverticulitis (Chronic) K57.92 Sepsis (Resolved) A41.9 Depression (Chronic) F32.9 Morbid obesity with BMI of 40.0-44.9, adult (Chronic) E66.01, Z68.41 HLD (hyperlipidemia) (Chronic) E78.5 Benign essential HTN (Chronic) I10 CVA (cerebral vascular accident) I63.9 Diverticulitis K57.92 2 para 2 Z78.9 Diabetic gastroparesis E11.43, K31.84 Fibromyalgia M79.7 QIAN (obstructive sleep apnea) G47.33 Restless leg syndrome G25.81 Fibromyalgia (Inactive) M79.7 2 para 2 Z78.9 History of CVA (cerebrovascular accident) (Inactive) Z86.73 Restless leg (Inactive) Allergies ciprofloxacin [From Cipro] Allergy (Verified 08/18/18 21:06) Shortness of breath ciprofloxacin HCl [From Cipro] Allergy (Verified 08/18/18 21:06) Shortness of breath cyclobenzaprine [From Flexeril] Allergy (Verified 08/18/18 21:06) Rash cyclobenzaprine HCl [From Flexeril] Allergy (Verified 08/18/18 21:06) Rash ketorolac tromethamine [From Toradol] Allergy (Verified 08/18/18 21:06) Chest tightness sulfamethoxazole [From Bactrim] Allergy (Verified 08/18/18 21:06) Itching trimethoprim [From Bactrim] Allergy (Verified 08/18/18 21:06) Itching metformin Adverse Reaction (Verified 08/18/18 21:06) Other headache valacyclovir HCl [From Valtrex] Adverse Reaction (Verified 08/18/18 21:06) Other Home Medications: Ambulatory Orders Medication Instructions Recorded Aspirin [Aspirin, Baby] 81 mg PO DAILY 05/07/16 Montelukast [Singulair] 10 mg PO DAILY 05/07/16 Ropinirole HCl [Requip] 1 mg PO QHS 05/07/16 Pregabalin [Lyrica] 150 mg PO BID 02/25/17 Hydrocodone/Acetaminophen 1 ea PO Q6H PRN PRN 06/01/17 [Hydrocodone-Acetamin 5-325 mg] allopurinol 100 mg tablet 100 mg PO QDAY 03/24/18 lamotrigine 100 mg tablet 100 mg PO BID 03/24/18 levothyroxine 75 mcg capsule 75 mcg PO QDAY 03/24/18 simvastatin 40 mg tablet 40 mg PO QPM 03/24/18 Methadone HCl 5 mg PO DAILY 04/06/18 Methadone HCl [(None)] 10 mg PO QHS 04/06/18 Morphine [Morphine IR] 15 mg PO BID 05/23/18 Ondansetron [Zofran] 8 mg PO Q6H PRN PRN 05/23/18 furosemide 40 mg tablet 40 mg PO DAILY 06/25/18 haloperidol 0.5 mg tablet 1 mg PO TID tab 06/26/18 valsartan 80 mg tablet 80 mg PO DAILY 06/26/18 potassium chloride ER 20 mEq 20 meq PO DAILY #90 tab 07/09/18 tablet,extended release(part/cryst) carvedilol 3.125 mg tablet 3.125 mg PO BID #180 tab 08/14/18 Benzonatate [Tessalon Perle] 200 mg PO TID PRN PRN #20 cap 08/17/18 Doxycycline 100 mg PO BID #20 cap 08/17/18 proMETHazine tablet [Phenergan] 25 mg PO Q6H PRN PRN #10 tab 08/17/18 Insulin Degludec [Tresiba 200 unit SQ DAILY 08/19/18 Flextouch U-200] Insulin Regular, Human [Humulin R 50 unit SQ BID 08/19/18 U-500 Kwikpen] Naloxegol Oxalate [Movantik] 12.5 mg PO DAILY 08/19/18 Surgical History: Surgical History (Last Reviewed 08/19/18 @ 01:09 by Jacques Santos MD) History of cholecystectomy Z90.49 History of knee surgery Z98.890 Surgical History: appendectomy, cholecystectomy Lives: With Family Smoking Status: Never smoker Alcohol: None - *Family History Paternal Family History: Family History (Last Reviewed 01/01/19 @ 01:10 by aJcques Santos MD) Mother Myocardial infarction Father Congestive heart failure Other Diabetes Heart disease History Items: Heart Disease, - - Bone cancer Maternal Family History: Family History (Last Reviewed 08/19/18 @ 01:10 by Jacques Santos MD) Mother Myocardial infarction Father Congestive heart failure Other Diabetes Heart disease History Items: COPD, Diabetes, Heart Disease, - - Smoker Review of Systems Constitutional: Reports: Chills, Malaise, Weakness, Fatigue. Denies: Fever HEENT: Reports: Sinus Drainage. Denies: Head Aches, Sinus Congestion Cardiovascular: Denies: Chest Pain, Palpitations Respiratory: Reports: Cough, Shortness of breath at rest, Sputum production Gastrointestinal: Reports: Constipation, Nausea, Vomiting. Denies: Abdominal Pain Genitourinary: Denies: Dysuria Musculoskeletal: Denies: Joint Pain, Joint Tenderness Skin: Denies: Rash, Wounds Neurological: Denies: Numbness, Tingling, Focal weakness Psychiatric: Denies: Anxiety, Depression, Homicidal Ideations, Suicidal Ideations Hematologic/ Lymphatic: Denies: Easy Bruising, Easy Bleeding VTE Information - Inpt Only VTE Present on Admission: No VTE Mechan Device Prophylaxis: None VTE Pharm Prophylaxis ordered?: Yes Patient Problems: Active and Suspected Problems (Last Reviewed 08/19/18 @ 04:36 by Jacques Santos MD) Community acquired pneumonia (Acute) - Physical Exam General: Alert, Oriented x3, Cooperative HEENT: Atraumatic, PERRLA, EOMI, Normocephalic Neck: Supple, No JVD, Negative Carotid Bruits Lungs: Wheezes Cardiovascular: Regular rate, No murmurs Abdomen: Bowel Sounds Present, Soft, Non Tender Extremities: No edema, Capillary Refill Less than 3 Seconds Skin: No rashes, No breakdown Musculoskeletal: No Tenderness to Palpation of Joints or Extremities Neurological: Neuro grossly intact Psych/Mental Status: Normal Affect, Appropriate Vital Signs Temp Pulse Resp BP Pulse Ox 99.0 F 83 17 158/65 H 93 08/18/18 22:00 08/18/18 22:00 08/18/18 22:00 08/18/18 22:00 08/18/18 22:00 Oxygen Delivery Method Room Air Weight: 129.274 kg Body Mass Index (BMI) 46.0 Finger Stick Blood Glucose 279 Laboratory Tests Past 24 Hrs 08/18/18 08/18/18 21:58 21:58 WBC 9.6 RBC 4.32 Hgb 11.0 L Hct 34.5 L MCV 79.9 L MCH 25.5 L MCHC 31.9 L RDW 16.0 H RDW Differential 47.1 H Plt Count 308 MPV 9.4 Immature Gran % (Auto) 0.200 Neut % (Auto) 71.7 H Lymph % (Auto) 15.5 L [place] % (Auto) 11.4 H Eos % (Auto) 0.9 Baso % (Auto) 0.3 Absolute Neuts (auto) 6.9 Absolute Lymphs (auto) 1.49 Total Counted Not Reportable Sodium 137 Potassium 3.5 Chloride 97 L Carbon Dioxide 30.0 Anion Gap 10 BUN 13 Creatinine 1.19 H Estim Creat Clear Calc 45.30 Est GFR (MDRD) Af Amer 59 L Est GFR (MDRD) Non-Af 49 L BUN/Creatinine Ratio 10.9 Glucose 173 H Calcium 9.3 Troponin I < 0.015 Assessment/Plan All Active Problems (Last Reviewed 08/19/18 @ 04:36 by Jacques Santos MD) Community acquired pneumonia (Acute) SOB (shortness of breath) (Acute) Sepsis (Resolved) Chest pain (Resolved) Community acquired pneumonia (Resolved) History of pulmonary embolus (PE) (Resolved) Hypotension (Resolved) Intractable vomiting with nausea (Resolved) Pulmonary embolism (Resolved) The patient is a 62 year old F with a significant history of obesity; paroxysmal A. fib; heart failure; diabetes mellitus; hypertension; and hyperlipidemia who presented with 3-day history of progressively worsening shortness of breath nausea, vomiting, malaise, fatigue, shortness of breath at rest which increases with exertion, cough with clear phlegm and posttussive emesis and a runny nose; was found to be wheezing; hypoxia; and with radiographic evidence of bilateral infiltrates. Acute hypoxemic respiratory failure likely secondary to pneumonia Emergency Department doctor reported patient was 88% on room air. Blood culture ?2 is pending Chest x-ray: Independent review of chest x-ray confirms bilateral lower lobe infiltrates with right greater than left. Respiratory Gram stain and culture ordered Antibiotics: Ceftriaxone and azithromycin was started emergency department. DuoNeb scheduled. Albuterol as needed Legionella antigen screen and Strep antigen ordered Because patient was wheezing patient received Solu-Medrol 125 mg x1 was ordered. Please assess for further need of steroids. Diabetes Mellitus On admission her blood glucose was 173; which is within hospital goal of 140-180. Home medication list includes high doses of insulin. However nurse reported that patient has not taking these insulin for 1 day. Review of previous emergency department doctors implied that patient blood glucose increased with steroids. We will start patient on Lantus 10 units daily and correction scale insulin. Accu-Chek q. before meals at bedtime and hypoglycemic protocol ordered. Hypertension On admission her blood pressure was not within goal. Valsartan and furosemide continued. Trend blood pressures and adjust blood pressure medication. CHF Last echocardiogram was on 07/04/2018. Review shows that patient had an ejection fraction of 60% and diastolic function was indeterminate. She had moderately enlarged left atrium: Review of national sales director notes that patient has a history of Takotsubo cardiomyopathy. We will continue patient on a home Lasix. She has bilateral opacities which is not uncommon for heart failure. However his symptoms appear to be due to pneumonia. BNP ordered. Gastroparesis Patient reported that she is on Haldol for gastroparesis. Haldol continued. Long-term use of narcotics/controlled substances. Patient's medication profile is hydrocodone/acetaminophen; methadone; morphine and Lyrica. Nurse reported that patient has no use codeine/acetaminophen; do not and morphine for a while. Hold this medication at this time. Continue home Lyrica Constipation Nurse reported later that patient stated that her bowels have moved for about 1 week. On her medication list is Naloxegol which is a mu-opiod receptor antagonist for opioid-induced constipation. Patient reported that she has been taking this medication without any real relief. Will not continue this medciation at this time. Senokot ordered. DVT prophylaxis Lovenox as needed ordered. Code Visit Inpatient E&M: 83444 Init Hosp L3
[2018-08-18 22:50] VITALS: PULSE 90; RESP 18
[2018-08-18] MEDS: Albuterol 2.5 MG/3 ML VIAL.NEB. INHALATION (22:50)
[2018-08-18] MEDS: Ceftriaxone 1 GM/50 ML BAG IV (23:10)
[2018-08-18 23:14] VITALS: BP 145/59; RESP 17; O2SAT 94
[2018-08-18 23:22] VITALS: BP 145/86; PULSE 94; RESP 18; TEMP 37.2; O2SAT 96
[2018-08-19] VITALS (12 sets, daily range): BP systolic 131–159; BP diastolic 54–89; PULSE 67–89; RESP 16–22; TEMP 36.6–37.1; O2SAT 94–100; BMI 43.5
[2018-08-19] MEDS: MethylPREDNISolone 125 MG/2 ML Vial IV (01:50)
[2018-08-19] MEDS: Ondansetron 4 MG/2 ML Vial IV ×3 (03:02→19:55)
[2018-08-19] MEDS: Ipratropium/Albuterol Sulfate 3 ML AMPUL.NEB INHALATION ×5 (04:02→23:22)
[2018-08-19] MEDS: Levothyroxine 75 MCG Tablet PO (05:54)
[2018-08-19] MEDS: Benzonatate 100 MG Capsule 200 MG PO (05:54)
[2018-08-19] MEDS: Insulin Lispro 100 UNIT/ML INSULN.PEN SQ ×3 (06:00→17:18)
[2018-08-19 06:01] LABS: Bedside Glucose 295 mg/dL (70-110)
[2018-08-19] MEDS: proMETHazine 25 MG/ML Syringe 6.25 MG IV ×2 (06:16→18:43)
[2018-08-19 07:47] LABS: Absolute Lymphocyte Count 0.52 X10^3/ul (0.83-4.51); Absolute Neutrophil Count 6.9 X10^3/uL (2.0-7.7); Basophil# 0.02 X10^3/uL; Basophil% 0.3 % (0-1); Differential Indicated SCAN CRITERIA MET; Hematocrit 33.6 % (37-47); Hemoglobin 10.6 g/dl (12.0-15.0); Lymphocyte # 0.52 X10^3/ul (4.0); Lymphocyte % 6.9 % (19-41); Mean Corp Hgb Conc 31.5 g/gl (32-36); Mean Corpuscular Hgb 25.9 pg (27.0-32.0); Mean Platelet Vol. 10.1 fl (6.2-12.0); Monocyte# 0.17 X10^3/uL; Monocyte% 2.2 % (0-10); Neutrophil # 6.85 X10^3/uL (2.7-7.7); Neutrophil % 90.5 % (47-70); POSITIVE COUNT NO; POSITIVE DIFFERENTIAL YES; POSITIVE MORPHOLOGY NO; Platelet Count 305 K/mm3 (150-450); RBC Distribution Width CV 16.1 % (11.6-14.6); RBC Distribution Width SD 47.8 fl (35.1-43.9); White Blood Count 7.6 K/mm3 (4.4-11.0)
[2018-08-19 08:00] LABS: Anion Gap 9 (5-15); BUN 13 mg/dL (7-18); BUN/Creat Ratio 11.8 RATIO (10-20); Calcium,Total 8.8 mg/dL (8.5-10.1); Chloride 95 mmol/L (98-107); EST Glomerular Filtration Rate 53 mL/min (>60); Est Glom Filt Rate - Afr Amer 64 mL/min (>60); Glucose 314 mg/dL (74-106); Sodium Level 131 mmol/L (136-145)
[2018-08-19 08:42] LABS: BNP,B-Type NATRIURETIC PEPTIDE 154.3 pg/mL (0-100)
--- NOTE | 2018-08-19 09:01 | PCM.PN.HOSP ---
Patient Problems: Active and Suspected Problems (Last Reviewed 08/19/18 @ 04:36 by Jacques Santos MD) Community acquired pneumonia (Acute) Subjective: Patient seen and examined. She was admitted with a complaint of nausea, vomiting, shortness of breath and a productive cough as well as nasal discharge. She was saturating at 88% on room air in the emergency room and chest x-ray showed bilateral lower lobe infiltrates. She was admitted to be managed for bilateral lower lobe pneumonia. Patient seen and examined. Still complains of feeling very weak and tired. She did have nausea and mild vomiting overnight but denies any fever though she admits to chills. Still has a cough which is productive of clear sputum. She denies any chest pain, palpitations, abdominal pain or diarrhea. Review of systems otherwise negative. Labs and vitals reviewed. Vitals/I&O's: Vital Signs Temp Pulse Resp BP Pulse Ox 98 F 72 18 145/67 H 94 08/19/18 03:03 08/19/18 07:15 08/19/18 07:15 08/19/18 03:03 08/19/18 07:15 Oxygen Flow Rate (L/min) 3 Oxygen Delivery Method Nasal Cannula Weight: 270 lb Body Mass Index (BMI) 43.5 Finger Stick Blood Glucose 279 Intake and Output for Last 24 Hours 08/17/18 08/18/18 08/19/18 23:59 23:59 23:59 Intake Total 200 / 200 Output Total 800 / 800 Balance -600 / -600 General: Alert, Oriented x3, Cooperative, No apparent distress HEENT: Atraumatic, PERRLA, EOMI, Normocephalic Oral: Dry Mucosa Neck: Supple, No JVD, Negative Carotid Bruits Lungs: Clear to auscultation, Normal air movement, No rhonchi, No wheeze, No rales Cardiovascular: Regular rate, Regular Rhythm, Normal S1, Normal S2, No murmurs Abdomen: Bowel Sounds Present, Soft, Non Tender, Non-Distended, No Hepato-splenomegaly Extremities: No clubbing, No cyanosis, No edema, Capillary Refill Less than 3 Seconds Skin: No rashes, No breakdown Musculoskeletal: No Tenderness to Palpation of Joints or Extremities Lymphatic: No Cervical, Supraclavicular, or Inguinal Adenopathy Neurological: Cranial nerves II-XII grossly intact, Neuro grossly intact, Motor Exam 5/5 strength throughout Psych/Mental Status: Normal Affect, Appropriate, Alert and oriented to time, place, person, mood and affect Microbiology Past 72 Hours 08/19/18 01:45 Urine, Clean Catch Streptococcus pneumoniae Antigen (M - Final 08/19/18 01:45 Urine, Clean Catch Legionella Antigen - Final Laboratory Results 08/18/18 21:58: WBC 9.6, RBC 4.32, Hgb 11.0 L, Hct 34.5 L, MCV 79.9 L, MCH 25.5 L, MCHC 31.9 L, RDW 16.0 H, RDW Differential 47.1 H, Plt Count 308, MPV 9.4, Immature Gran % (Auto) 0.200, Neut % (Auto) 71.7 H, Lymph % (Auto) 15.5 L, [place] % (Auto) 11.4 H, Eos % (Auto) 0.9, Baso % (Auto) 0.3, Absolute Neuts (auto) 6.9, Absolute Lymphs (auto) 1.49, Total Counted Not Reportable 08/18/18 21:58: Sodium 137, Potassium 3.5, Chloride 97 L, Carbon Dioxide 30.0, Anion Gap 10, BUN 13, Creatinine 1.19 H, Estim Creat Clear Calc 45.30, Est GFR (MDRD) Af Amer 59 L, Est GFR (MDRD) Non-Af 49 L, BUN/Creatinine Ratio 10.9, Glucose 173 H, Calcium 9.3, Troponin I < 0.015 08/19/18 05:57: POC Glucose 295 H 08/19/18 07:15: WBC 7.6, RBC 4.10 L, Hgb 10.6 L, Hct 33.6 L, MCV 82.0, MCH 25.9 L, MCHC 31.5 L, RDW 16.1 H, RDW Differential 47.8 H, Plt Count 305, MPV 10.1, Immature Gran % (Auto) 0.100, Neut % (Auto) 90.5 H, Lymph % (Auto) 6.9 L, [place] % (Auto) 2.2, Eos % (Auto) 0.0, Baso % (Auto) 0.3, Absolute Neuts (auto) 6.9, Absolute Lymphs (auto) 0.52 L, Total Counted Not Reportable 08/19/18 07:15: Sodium 131 L, Potassium 4.0, Chloride 95 L, Carbon Dioxide 27.0, Anion Gap 9, BUN 13, Creatinine 1.10 H, Estim Creat Clear Calc 49.00, Est GFR (MDRD) Af Amer 64, Est GFR (MDRD) Non-Af 53 L, BUN/Creatinine Ratio 11.8, Glucose 314 H, Calcium 8.8 08/19/18 07:15: B-Natriuretic Peptide 154.3 H Diagnostic Data Chest X-Ray 08/18/18 21:37 IMPRESSION: Bilateral lower lobe infiltrates greater on the right Electronically Signed: Ray Joy MD at 22:05 EST , Service support , Current Medications Acetaminophen (Tylenol) 650 mg PO Q4H PRN PRN PRN Reason: FEVER Albuterol Sulfate (Ventolin Aerosols) 2.5 mg INHALATION Q2H PRN PRN PRN Reason: SHORTNESS OF BREATH Albuterol/Ipratropium (Duoneb) 3 ml INHALATION Q4H.RT FORD Last Admin: 08/19/18 07:15 Dose: 3 ml Allopurinol (Zyloprim) 100 mg PO DAILYCM [facility] Aspirin (Aspirin, Baby) 81 mg PO DAILYCM [facility] Atorvastatin Calcium (Lipitor) 20 mg PO 2200 [facility] Benzonatate (Tessalon Perle) 200 mg PO TID PRN PRN PRN Reason: COUGH Last Admin: 08/19/18 05:54 Dose: 200 mg Carvedilol (Coreg) 3.125 mg PO BIDCM [facility] Dextrose (D50w Syringe) 0 gm IV X1 PRN; Protocol PRN Reason: Hypoglycemia Enoxaparin Sodium (Lovenox) 40 mg SC DAILY@1000 FORD Furosemide (Lasix) 40 mg PO DAILY [facility] Glucagon () 1 mg IM .X1 PRN PRN Reason: Hypoglycemia Guaifenesin (Mucinex) 1,200 mg PO BID [facility] Haloperidol (Haldol) 1 mg PO TID [facility] Azithromycin 500 mg/ Dextrose 255 mls @ 250 mls/hr IV Q24@2200 [facility] Stop: 08/21/18 23:02 Ceftriaxone Sodium (Rocephin) 1 gm in 50 mls @ 100 mls/hr IV Q24@2200 [facility] Insulin Glargine (Lantus (Bkc)) 10 units SC BREAKFAST [facility] Insulin Human Lispro (Humalog Kwikpen (Bk)) 0 unit SQ ACHS [facility]; Protocol Last Admin: 08/19/18 06:00 Dose: 6 units Lamotrigine (Lamictal) 100 mg PO BID [facility] Levothyroxine Sodium (Synthroid) 75 mcg PO DAILY@0600 [facility] Last Admin: 08/19/18 05:54 Dose: 75 mcg Losartan Potassium (Cozaar) 25 mg PO DAILY [facility] Magnesium Hydroxide (Milk Of Magnesia) 30 ml PO DAILY PRN PRN PRN Reason: Constipation Montelukast Sodium (Singulair) 10 mg PO DAILY [facility] Nutritional Formula (Lactose Free) (Glucerna Shake) 120 ml PO TIDCM [facility] Ondansetron HCl (Zofran) 4 mg IV Q8H PRN PRN PRN Reason: NAUSEA Last Admin: 08/19/18 03:02 Dose: 4 mg Potassium Chloride (K-Dur) 20 meq PO DAILYCM [facility] Pramipexole Dihydrochloride (Mirapex) 0.5 mg PO QHS [facility] Pregabalin (Lyrica) 150 mg PO BID [facility] Promethazine HCl (Phenergan) 6.25 mg IV Q6H PRN PRN PRN Reason: NAUSEA/VOMITING Last Admin: 08/19/18 06:16 Dose: 6.25 mg Senna/Docusate Sodium (Senokot-S, Huma-Colace) 2 tablet PO BID [facility] Sodium Chloride () 5 - 15 ml IV UD PRN PRN Reason: SALINE FLUSH Medical Necessity - Tobacco Use Smoking Status: Never smoker Assessment/Plan All Active Problems (Last Reviewed 08/19/18 @ 04:36 by Jacques Santos MD) Community acquired pneumonia (Acute) SOB (shortness of breath) (Acute) Sepsis (Resolved) Chest pain (Resolved) Community acquired pneumonia (Resolved) History of pulmonary embolus (PE) (Resolved) Hypotension (Resolved) Intractable vomiting with nausea (Resolved) Pulmonary embolism (Resolved) 1. Acute hypoxemic respiratory failure due to community acquired pneumonia saturating at 94% on 3L of oxygen; not on oxygen at home remained afebrile; has no leucocytosis CXR: bilateral lower lobe infiltrates, right greater than left Respiratory panel pending. Urine for Legionella and strep negative. Blood cultures pending. On IV ceftriaxone and azithromycin. We will continue for now. on breathing treatments with duonebs titrate oxygen to maintain saturation >92% 2. diabetes mellitus: home meds are Tresiba 200IU daily and humulin 50IU bid blood sugars were WNL so home meds were held and she was started on lantus 10IU qhs will monitor blood sugars closely; if they trend up, will resume home doses ISS Accuchekcs ACHS 3. Hyponatremia: Sodium is 131 today. Was 137 on admission. Likely due to decreased intake as patient states she has been throwing up. Will hydrate with IV fluids and monitor. 4. Hypertension: Carvedilol, valsartan and furosemide. 5. Hypothyroidism: On Synthroid 75 mg daily 6. Gastroparesis: On Haldol 7. Diastolic heart failure: EF of 60%. On Lasix. BNP was 154.3. 8. Constipation: On Movantik at home for opioid-induced constipation. However she says it has not been very effective though this is likely because she is on opiates still on senokot 9. Chronic pain syndrome: on methadone, morphine, hydrocodone/acetaminophen and Lyrica. 10. DVT prophylaxis: lovenox Code Visit Inpatient E&M: 40133 [facility] L3
--- NOTE | 2018-08-19 09:17 | PN_ITS ---
Patient Problems: Active and Suspected Problems (Last Reviewed 08/19/18 @ 04:36 by Jacques Santos MD) Community acquired pneumonia (Acute) Subjective: Patient seen and examined. She was admitted with a complaint of nausea, vomiting, shortness of breath and a productive cough as well as nasal discharge. She was saturating at 88% on room air in the emergency room and chest x-ray showed bilateral lower lobe infiltrates. She was admitted to be managed for bilateral lower lobe pneumonia. Patient seen and examined. Still complains of feeling very weak and tired. She did have nausea and mild vomiting overnight but denies any fever though she admits to chills. Still has a cough which is productive of clear sputum. She denies any chest pain, palpitations, abdominal pain or diarrhea. Review of systems otherwise negative. Labs and vitals reviewed. Vitals/I&O's: Vital Signs Temp Pulse Resp BP Pulse Ox 98 F 72 18 145/67 H 94 08/19/18 03:03 08/19/18 07:15 08/19/18 07:15 08/19/18 03:03 08/19/18 07:15 Oxygen Flow Rate (L/min) 3 Oxygen Delivery Method Nasal Cannula Weight: 270 lb Body Mass Index (BMI) 43.5 Finger Stick Blood Glucose 279 Intake and Output for Last 24 Hours 08/17/18 08/18/18 08/19/18 23:59 23:59 23:59 Intake Total 200 / 200 Output Total 800 / 800 Balance -600 / -600 General: Alert, Oriented x3, Cooperative, No apparent distress HEENT: Atraumatic, PERRLA, EOMI, Normocephalic Oral: Dry Mucosa Neck: Supple, No JVD, Negative Carotid Bruits Lungs: Clear to auscultation, Normal air movement, No rhonchi, No wheeze, No rales Cardiovascular: Regular rate, Regular Rhythm, Normal S1, Normal S2, No murmurs Abdomen: Bowel Sounds Present, Soft, Non Tender, Non-Distended, No Hepato- splenomegaly Extremities: No clubbing, No cyanosis, No edema, Capillary Refill Less than 3 Seconds Skin: No rashes, No breakdown Musculoskeletal: No Tenderness to Palpation of Joints or Extremities Lymphatic: No Cervical, Supraclavicular, or Inguinal Adenopathy Neurological: Cranial nerves II-XII grossly intact, Neuro grossly intact, Motor Exam 5/5 strength throughout Psych/Mental Status: Normal Affect, Appropriate, Alert and oriented to time, place, person, mood and affect Microbiology Past 72 Hours 08/19/18 01:45 Urine, Clean Catch Streptococcus pneumoniae Antigen (M - Final 08/19/18 01:45 Urine, Clean Catch Legionella Antigen - Final Laboratory Results 08/18/18 21:58: WBC 9.6, RBC 4.32, Hgb 11.0 L, Hct 34.5 L, MCV 79.9 L, MCH 25.5 L, MCHC 31.9 L, RDW 16.0 H, RDW Differential 47.1 H, Plt Count 308, MPV 9.4, Immature Gran % (Auto) 0.200, Neut % (Auto) 71.7 H, Lymph % (Auto) 15.5 L, Liberty % (Auto) 11.4 H, Eos % (Auto) 0.9, Baso % (Auto) 0.3, Absolute Neuts (auto) 6.9, Absolute Lymphs (auto) 1.49, Total Counted Not Reportable 08/18/18 21:58: Sodium 137, Potassium 3.5, Chloride 97 L, Carbon Dioxide 30.0, Anion Gap 10, BUN 13, Creatinine 1.19 H, Estim Creat Clear Calc 45.30, Est GFR (MDRD) Af Amer 59 L, Est GFR (MDRD) Non-Af 49 L, BUN/Creatinine Ratio 10.9, Glucose 173 H, Calcium 9.3, Troponin I < 0.015 08/19/18 05:57: POC Glucose 295 H 08/19/18 07:15: WBC 7.6, RBC 4.10 L, Hgb 10.6 L, Hct 33.6 L, MCV 82.0, MCH 25.9 L, MCHC 31.5 L, RDW 16.1 H, RDW Differential 47.8 H, Plt Count 305, MPV 10.1, Immature Gran % (Auto) 0.100, Neut % (Auto) 90.5 H, Lymph % (Auto) 6.9 L, Liberty % (Auto) 2.2, Eos % (Auto) 0.0, Baso % (Auto) 0.3, Absolute Neuts (auto) 6.9, Absolute Lymphs (auto) 0.52 L, Total Counted Not Reportable 08/19/18 07:15: Sodium 131 L, Potassium 4.0, Chloride 95 L, Carbon Dioxide 27.0, Anion Gap 9, BUN 13, Creatinine 1.10 H, Estim Creat Clear Calc 49.00, Est GFR (MDRD) Af Amer 64, Est GFR (MDRD) Non-Af 53 L, BUN/Creatinine Ratio 11.8, Glucose 314 H, Calcium 8.8 08/19/18 07:15: B-Natriuretic Peptide 154.3 H Diagnostic Data Chest X-Ray 08/18/18 21:37 IMPRESSION: Bilateral lower lobe infiltrates greater on the right Electronically Signed: Ray Joy MD at 22:05 EST , Service support , Current Medications Acetaminophen (Tylenol) 650 mg PO Q4H PRN PRN PRN Reason: FEVER Albuterol Sulfate (Ventolin Aerosols) 2.5 mg INHALATION Q2H PRN PRN PRN Reason: SHORTNESS OF BREATH Albuterol/Ipratropium (Duoneb) 3 ml INHALATION Q4H.RT [facility] Last Admin: 08/19/18 07:15 Dose: 3 ml Allopurinol (Zyloprim) 100 mg PO DAILYCM [facility] Aspirin (Aspirin, Baby) 81 mg PO DAILYCM [facility] Atorvastatin Calcium (Lipitor) 20 mg PO 2200 [facility] Benzonatate (Tessalon Perle) 200 mg PO TID PRN PRN PRN Reason: COUGH Last Admin: 08/19/18 05:54 Dose: 200 mg Carvedilol (Coreg) 3.125 mg PO BIDCM [facility] Dextrose (D50w Syringe) 0 gm IV X1 PRN; Protocol PRN Reason: Hypoglycemia Enoxaparin Sodium (Lovenox) 40 mg SC DAILY@1000 [facility] Furosemide (Lasix) 40 mg PO DAILY [facility] Glucagon () 1 mg IM .X1 PRN PRN Reason: Hypoglycemia Guaifenesin (Mucinex) 1,200 mg PO BID [facility] Haloperidol (Haldol) 1 mg PO TID [facility] Azithromycin 500 mg/ Dextrose 255 mls @ 250 mls/hr IV Q24@2200 [facility] Stop: 08/21/18 23:02 Ceftriaxone Sodium (Rocephin) 1 gm in 50 mls @ 100 mls/hr IV Q24@2200 [facility] Insulin Glargine (Lantus (Bkc)) 10 units SC BREAKFAST [facility] Insulin Human Lispro (Humalog Kwikpen (Bk)) 0 unit SQ ACHS [facility]; Protocol Last Admin: 08/19/18 06:00 Dose: 6 units Lamotrigine (Lamictal) 100 mg PO BID [facility] Levothyroxine Sodium (Synthroid) 75 mcg PO DAILY@0600 [facility] Last Admin: 08/19/18 05:54 Dose: 75 mcg Losartan Potassium (Cozaar) 25 mg PO DAILY [facility] Magnesium Hydroxide (Milk Of Magnesia) 30 ml PO DAILY PRN PRN PRN Reason: Constipation Montelukast Sodium (Singulair) 10 mg PO DAILY [facility] Nutritional Formula (Lactose Free) (Glucerna Shake) 120 ml PO TIDCM [facility] Ondansetron HCl (Zofran) 4 mg IV Q8H PRN PRN PRN Reason: NAUSEA Last Admin: 08/19/18 03:02 Dose: 4 mg Potassium Chloride (K-Dur) 20 meq PO DAILYCM [facility] Pramipexole Dihydrochloride (Mirapex) 0.5 mg PO QHS [facility] Pregabalin (Lyrica) 150 mg PO BID [facility] Promethazine HCl (Phenergan) 6.25 mg IV Q6H PRN PRN PRN Reason: NAUSEA/VOMITING Last Admin: 08/19/18 06:16 Dose: 6.25 mg Senna/Docusate Sodium (Senokot-S, Huma-Colace) 2 tablet PO BID [facility] Sodium Chloride () 5 - 15 ml IV UD PRN PRN Reason: SALINE FLUSH Medical Necessity - Tobacco Use Smoking Status: Never smoker Assessment/Plan All Active Problems (Last Reviewed 08/19/18 @ 04:36 by Jacques Santos MD) Community acquired pneumonia (Acute) SOB (shortness of breath) (Acute) Sepsis (Resolved) Chest pain (Resolved) Community acquired pneumonia (Resolved) History of pulmonary embolus (PE) (Resolved) Hypotension (Resolved) Intractable vomiting with nausea (Resolved) Pulmonary embolism (Resolved) 1. Acute hypoxemic respiratory failure due to community acquired pneumonia * saturating at 94% on 3L of oxygen; not on oxygen at home * remained afebrile; has no leucocytosis * CXR: bilateral lower lobe infiltrates, right greater than left * Respiratory panel pending. Urine for Legionella and strep negative. Blood cultures pending. * On IV ceftriaxone and azithromycin. We will continue for now. * on breathing treatments with duonebs * titrate oxygen to maintain saturation >92% * 2. diabetes mellitus: * home meds are Tresiba 200IU daily and humulin 50IU bid * blood sugars were WNL so home meds were held and she was started on lantus 10IU qhs * will monitor blood sugars closely; if they trend up, will resume home doses * ISS * Accuchekcs ACHS * 3. Hyponatremia: * Sodium is 131 today. * Was 137 on admission. * Likely due to decreased intake as patient states she has been throwing up. * Will hydrate with IV fluids and monitor. * 4. Hypertension: Carvedilol, valsartan and furosemide. 5. Hypothyroidism: On Synthroid 75 mg daily 6. Gastroparesis: On Haldol 7. Diastolic heart failure: EF of 60%. On Lasix. BNP was 154.3. 8. Constipation: * On Movantik at home for opioid-induced constipation. * However she says it has not been very effective though this is likely because she is on opiates still * on senokot * 9. Chronic pain syndrome: on methadone, morphine, hydrocodone/acetaminophen and Lyrica. 10. DVT prophylaxis: lovenox Code Visit Inpatient E&M: 24866 [facility] L3
--- NOTE | 2018-08-19 09:27 | NURSING ---
Patient very nauseated at this time. Does not want to take any medications at this time. Does not want breakfast. Pharmacy put in for Haldol-awaiting its arrival to unit. Patient aware and will get dose as soon as pharmacy sends up.
[2018-08-19] MEDS: 0.9% Normal Saline 1,000 ML 125 ML IV ×2 (09:37→17:21)
[2018-08-19] MEDS: Haloperidol 5 MG Tablet 1.25 MG PO ×3 (10:03→22:33)
[2018-08-19] MEDS: 0.9% NaCl Peripheral Flush Adult/Peds IV (11:44)
[2018-08-19] MEDS: Enoxaparin 40 MG/0.4 ML Syringe SC (11:50)
[2018-08-19 12:07] LABS: Bedside Glucose 380 mg/dL (70-110)
[2018-08-19] MEDS: Losartan Potassium 25 MG Tablet PO (14:01)
[2018-08-19] MEDS: Carvedilol 3.125 MG TABLET PO (14:05)
[2018-08-19] MEDS: Furosemide 40 MG Tablet PO (14:05)
--- NOTE | 2018-08-19 14:11 | EKG12_ITS ---
Test Reason : CP Blood Pressure : / mmHG Vent. Rate : 080 BPM Atrial Rate : 080 BPM P-R Int : 166 ms QRS Dur : 094 ms QT Int : 412 ms P-R-T Axes : 017 -21 040 degrees QTc Int : 475 ms Normal sinus rhythm Nonspecific ST abnormality Abnormal ECG When compared with ECG of 18-AUG-2018 21:32, MANUAL COMPARISON REQUIRED, DATA IS UNCONFIRMED Confirmed by ABIMAEL CURRY, CAROLE ([id number]), health editor MAIKEL MULLEN ([id number]) on 09/01/2018 10:31:12 AM Referred By: Jacques Santos Confirmed By:CAROLE VARGHESE MD
--- NOTE | 2018-08-19 14:15 | NURSING ---
Patient called out, states she is having chest pain. This RN enters room to find patient sitting on EOB with 02 off. Replaced 02 and checked VS. See intervention. CPS called for STAT EKG for CP.
[2018-08-19 16:02] LABS: Bedside Glucose 275 mg/dL (70-110)
[2018-08-19] MEDS: lamoTRIgine 100 MG Tablet PO (22:34)
[2018-08-19] MEDS: Atorvastatin Calcium 20 MG Tablet PO (22:34)
[2018-08-19] MEDS: Pramipexole Di-HCl 0.5 MG Tablet PO (22:35)
[2018-08-19] MEDS: Senna/Docusate Sodium 1 Tablet 2 TABLET PO (22:35)
[2018-08-19] MEDS: guaiFENesin 1,200 MG Tablet 1200 MG PO (22:38)
[2018-08-19] MEDS: Pregabalin 75 MG Capsule 150 MG PO (22:39)
[2018-08-19] MEDS: Ceftriaxone 1 GM/50 ML BAG IV (22:39)
[2018-08-19 22:55] LABS: Bedside Glucose 159 mg/dL (70-110)
[2018-08-20] VITALS (10 sets, daily range): BP systolic 112–141; BP diastolic 45–105; PULSE 68–81; RESP 16–21; TEMP 36.6–37.7; O2SAT 93–94
[2018-08-20] MEDS: Acetaminophen 325 MG Tablet 650 MG PO ×2 (05:44→14:28)
[2018-08-20] MEDS: Levothyroxine 75 MCG Tablet PO (05:45)
[2018-08-20] MEDS: Haloperidol 5 MG Tablet 1.25 MG PO ×3 (05:45→21:57)
[2018-08-20 06:27] LABS: Absolute Lymphocyte Count 1.34 X10^3/ul (0.83-4.51); Absolute Neutrophil Count 8.4 X10^3/uL (2.0-7.7); Basophil# 0.04 X10^3/uL; Basophil% 0.4 % (0-1); Eosinophil# 0.02 X10^3/uL; Eosinophils% 0.2 % (0-5); Hematocrit 33.9 % (37-47); Hemoglobin 10.9 g/dl (12.0-15.0); Lymphocyte # 1.34 X10^3/ul (4.0); Mean Corp Hgb Conc 32.2 g/gl (32-36); Mean Corpuscular Hgb 26.4 pg (27.0-32.0); Mean Corpuscular Volume 82.1 fL (81-99); Mean Platelet Vol. 9.5 fl (6.2-12.0); Monocyte# 1.34 X10^3/uL; Neutrophil # 8.41 X10^3/uL (2.7-7.7); Neutrophil % 75.1 % (47-70); Platelet Count 373 K/mm3 (150-450); RBC Distribution Width CV 16.2 % (11.6-14.6); RBC Distribution Width SD 48.3 fl (35.1-43.9); Red Blood Count 4.13 M/mm3 (4.2-5.4); White Blood Count 11.2 K/mm3 (4.4-11.0)
[2018-08-20 06:29] LABS: POSITIVE COUNT NO; POSITIVE DIFFERENTIAL NO; POSITIVE MORPHOLOGY NO
[2018-08-20] MEDS: Insulin Lispro 100 UNIT/ML INSULN.PEN SQ ×3 (06:36→21:55)
[2018-08-20 06:40] LABS: Bedside Glucose 176 mg/dL (70-110)
[2018-08-20 06:42] LABS: Anion Gap 9 (5-15); BUN 15 mg/dL (7-18); BUN/Creat Ratio 13.3 RATIO (10-20); Calcium,Total 8.1 mg/dL (8.5-10.1); Chloride 98 mmol/L (98-107); Creatinine, Serum 1.13 mg/dL (0.55-1.02); EST Glomerular Filtration Rate 52 mL/min (>60); Est Glom Filt Rate - Afr Amer 62 mL/min (>60); Glucose 160 mg/dL (74-106); Potassium 3.7 mmol/L (3.5-5.1); Sodium Level 134 mmol/L (136-145)
[2018-08-20] MEDS: Ipratropium/Albuterol Sulfate 3 ML AMPUL.NEB INHALATION ×5 (08:18→22:52)
[2018-08-20] MEDS: Aspirin 81 MG TAB.CHEW PO (09:27)
[2018-08-20] MEDS: Carvedilol 3.125 MG TABLET PO ×2 (09:27→17:12)
[2018-08-20] MEDS: Montelukast 10 MG Tablet PO (09:28)
[2018-08-20] MEDS: Furosemide 40 MG Tablet PO (09:28)
[2018-08-20] MEDS: Allopurinol 100 MG Tablet PO (09:28)
[2018-08-20] MEDS: Pregabalin 75 MG Capsule 150 MG PO ×2 (09:28→21:57)
[2018-08-20] MEDS: Losartan Potassium 25 MG Tablet PO (09:28)
[2018-08-20] MEDS: Senna/Docusate Sodium 1 Tablet 2 TABLET PO ×2 (09:28→21:58)
[2018-08-20] MEDS: Enoxaparin 40 MG/0.4 ML Syringe SC (09:28)
[2018-08-20] MEDS: lamoTRIgine 100 MG Tablet PO ×2 (09:29→21:57)
[2018-08-20] MEDS: guaiFENesin 1,200 MG Tablet 1200 MG PO ×2 (09:29→21:56)
--- NOTE | 2018-08-20 10:41 | PCM.PN.HOSP ---
Patient Problems: Active and Suspected Problems (Last Reviewed 08/19/18 @ 04:36 by Jacques Santos MD) Community acquired pneumonia (Acute) Subjective: Patient seen and examined. She still complains of feeling weak and tired. She still has a cough and has some wheezing. She denies any chest pain, palpitations, abdominal pain, diarrhea or vomiting. Labs and vitals reviewed. He spiked a fever earlier this morning to 99.9 Fahrenheit but has subsequently come down to 98.4 Fahrenheit. White cell count trended up slightly to 11.2. She is now on 1 L of oxygen. Vitals/I&O's: Vital Signs Temp Pulse Resp BP Pulse Ox 98.4 F 73 20 H 115/45 L 93 08/20/18 09:26 08/20/18 09:26 08/20/18 09:26 08/20/18 09:26 08/20/18 09:26 Oxygen Flow Rate (L/min) 1 Oxygen Delivery Method Nasal Cannula Weight: 270 lb Body Mass Index (BMI) 43.5 Finger Stick Blood Glucose 279 Intake and Output for Last 24 Hours 08/18/18 08/19/18 08/20/18 23:59 23:59 23:59 Intake Total 1400 / 1400 1526 / 1526 Output Total 1999 / 1999 1800 / 1800 Balance -600 / -600 -274 / -274 General: Alert, Oriented x3, Cooperative, looks weak and lethargic HEENT: Atraumatic, PERRLA, EOMI, Normocephalic Oral: Dry Mucosa Neck: Supple, No JVD, Negative Carotid Bruits Lungs: mild wheezing in all lung davalos bilaterally Cardiovascular: Regular rate, Regular Rhythm, Normal S1, Normal S2, No murmurs Abdomen: Bowel Sounds Present, Soft, Non Tender, Non-Distended, No Hepato-splenomegaly Extremities: No clubbing, No cyanosis, No edema, Capillary Refill Less than 3 Seconds Skin: No rashes, No breakdown Musculoskeletal: No Tenderness to Palpation of Joints or Extremities Lymphatic: No Cervical, Supraclavicular, or Inguinal Adenopathy Neurological: Cranial nerves II-XII grossly intact, Neuro grossly intact, Motor Exam 5/5 strength throughout Psych/Mental Status: Normal Affect, Appropriate, Alert and oriented to time, place, person, mood and affect Microbiology Past 72 Hours 08/19/18 04:05 Mucosa - Nose Respiratory Panel (PCR) - Final [facility] 08/19/18 01:45 Urine, Clean Catch Streptococcus pneumoniae Antigen (M - Final 08/19/18 01:45 Urine, Clean Catch Legionella Antigen - Final Laboratory Results 08/19/18 11:42: POC Glucose 380 H 08/19/18 14:58: Troponin I < 0.015 08/19/18 15:53: POC Glucose 275 H 08/19/18 17:51: Troponin I < 0.015 08/19/18 21:12: Troponin I < 0.015 08/19/18 22:34: POC Glucose 159 H 08/20/18 06:20: WBC 11.2 H, RBC 4.13 L, Hgb 10.9 L, Hct 33.9 L, MCV 82.1, MCH 26.4 L, MCHC 32.2, RDW 16.2 H, RDW Differential 48.3 H, Plt Count 373, MPV 9.5, Immature Gran % (Auto) 0.300, Neut % (Auto) 75.1 H, Lymph % (Auto) 12.0 L, Todd % (Auto) 12.0 H, Eos % (Auto) 0.2, Baso % (Auto) 0.4, Absolute Neuts (auto) 8.4 H, Absolute Lymphs (auto) 1.34, Total Counted Not Reportable 08/20/18 06:20: Sodium 134 L, Potassium 3.7, Chloride 98, Carbon Dioxide 27.0, Anion Gap 9, BUN 15, Creatinine 1.13 H, Estim Creat Clear Calc 47.70, Est GFR (MDRD) Af Amer 62, Est GFR (MDRD) Non-Af 52 L, BUN/Creatinine Ratio 13.3, Glucose 160 H, Calcium 8.1 L 08/20/18 06:34: POC Glucose 176 H Current Medications Acetaminophen (Tylenol) 650 mg PO Q4H PRN PRN PRN Reason: FEVER Last Admin: 08/20/18 05:44 Dose: 650 mg Albuterol Sulfate (Ventolin Aerosols) 2.5 mg INHALATION Q2H PRN PRN PRN Reason: SHORTNESS OF BREATH Albuterol/Ipratropium (Duoneb) 3 ml INHALATION Q4H.RT [facility] Last Admin: 08/20/18 08:18 Dose: 3 ml [facility] ([facility]rim) [facility] Last Admin: 08/20/18 09:28 Dose: 100 mg Aspirin (Aspirin, Baby) [facility] Last Admin: 08/20/18 09:27 Dose: 81 mg Atorvastatin Calcium (Lipitor) 20 mg PO 2200 [facility] Last Admin: 08/19/18 22:34 Dose: 20 mg Benzonatate (Tessalon Perle) 200 mg PO TID PRN PRN PRN Reason: COUGH Last Admin: 08/19/18 05:54 Dose: 200 mg Carvedilol (Coreg) 3.125 [facility] Last Admin: 08/20/18 09:27 Dose: 3.1249 mg Dextrose (D50w Syringe) 0 gm IV X1 PRN; Protocol PRN Reason: Hypoglycemia Enoxaparin Sodium (Lovenox) 40 mg SC DAILY@1000 [facility] Last Admin: 08/20/18 09:28 Dose: 40 mg Furosemide (Lasix) 40 mg PO DAILY [facility] Last Admin: 08/20/18 09:28 Dose: 40 mg Glucagon () 1 mg IM .X1 PRN PRN Reason: Hypoglycemia Guaifenesin (Mucinex) 1,200 mg PO BID [facility] Last Admin: 08/20/18 09:29 Dose: 1,200 mg Haloperidol (Haldol) 1.25 mg PO TID [facility] Last Admin: 08/20/18 05:45 Dose: 1.25 mg Azithromycin 500 mg/ Dextrose 255 mls @ 250 mls/hr IV Q24@2200 [facility] Stop: 08/21/18 23:02 Last Admin: 08/19/18 23:18 Dose: 250 mls/hr Ceftriaxone Sodium (Rocephin) 1 gm in 50 mls @ 100 mls/hr IV Q24@2200 [facility] Last Admin: 08/19/18 22:39 Dose: 100 mls/hr Insulin Glargine (Lantus (Bkc)) 10 units SC BREAKFAST [facility] Last Admin: 08/20/18 09:29 Dose: 10 u Insulin Human Lispro (Humalog Kwikpen (Bkc)) 0 unit SQ ACHS [facility]; Protocol Last Admin: 08/20/18 06:36 Dose: 2 units Lamotrigine (Lamictal) 100 mg PO BID [facility] Last Admin: 08/20/18 09:29 Dose: 100 mg Levothyroxine Sodium (Synthroid) 75 mcg PO DAILY@0600 [facility] Last Admin: 08/20/18 05:45 Dose: 75 mcg Losartan Potassium (Cozaar) 25 mg PO DAILY [facility] Last Admin: 08/20/18 09:28 Dose: 25 mg Magnesium Hydroxide (Milk Of Magnesia) 30 ml PO DAILY PRN PRN PRN Reason: Constipation Montelukast Sodium (Singulair) 10 mg PO DAILY [facility] Last Admin: 08/20/18 09:28 Dose: 10 mg Nutritional Formula (Lactose Free) (Glucerna Shake) 120 ml PO TIDCM [facility] Last Admin: 08/20/18 09:08 Dose: Not Given Ondansetron HCl (Zofran) 4 mg IV Q8H PRN PRN PRN Reason: NAUSEA Last Admin: 08/19/18 19:55 Dose: 4 mg Potassium Chloride (K-Dur) 20 meq [facility] Last Admin: 08/20/18 09:29 Dose: 20 meq Pramipexole Dihydrochloride (Mirapex) 0.5 mg PO QHS [facility] Last Admin: 08/19/18 22:35 Dose: 0.5 mg Pregabalin (Lyrica) 150 mg PO BID [facility] Last Admin: 08/20/18 09:28 Dose: 150 mg Promethazine HCl (Phenergan) 6.25 mg IV Q6H PRN PRN PRN Reason: NAUSEA/VOMITING Last Admin: 08/19/18 18:43 Dose: 6.25 mg Senna/Docusate Sodium (Senokot-S, Huma-Colace) 2 tablet PO BID [facility] Last Admin: 08/20/18 09:28 Dose: 2 tablet Sodium Chloride () 5 - 15 ml IV UD PRN PRN Reason: SALINE FLUSH Sodium Chloride () 5 - 15 ml IV UD PRN PRN Reason: SALINE FLUSH Last Admin: 08/19/18 11:44 Dose: 10 ml Medical Necessity - Tobacco Use Smoking Status: Never smoker Assessment/Plan All Active Problems (Last Reviewed 08/19/18 @ 04:36 by Jacques Santos MD) Community acquired pneumonia (Acute) SOB (shortness of breath) (Acute) Sepsis (Resolved) Chest pain (Resolved) Community acquired pneumonia (Resolved) History of pulmonary embolus (PE) (Resolved) Hypotension (Resolved) Intractable vomiting with nausea (Resolved) Pulmonary embolism (Resolved) 1. Acute hypoxemic respiratory failure due to community acquired pneumonia and URTI feels weak and lethargic; has mild wheezing in all lung davalos had a fever of 99.9F today, with wbc up to 11.2 on IV ceftriaxone and azithromycin; will continue respiratory panel detected human metapneumovirus will add on steroids o/a of wheezing down to 1L of oxygen by nasal canula this morning continue titrating oxygen to maintain sats at >92% 2. URTI due to human metapneumovirus continue breathing treatments with duonebs add on IV solumedrol continue IVF 3. diabetes mellitus: home meds are Tresiba 200IU daily and humulin 50IU bid blood sugars have been in 150s and 200s; ahd a peak in high 300s yesterday. continue lantus 10IU qhs accuchecks ACHS ISS 4. Hyponatremia: Resolving. Sodium up to 134 today. continue IV fluids and monitor. 5. Hypertension: Controlled. Carvedilol, valsartan and furosemide. 6. Hypothyroidism: On Synthroid 75 mg daily 7. Gastroparesis: On Haldol 8. Diastolic heart failure: EF of 60%. On Lasix. 9. Constipation: On Movantik at home for opioid-induced constipation. However she says it has not been very effective though this is likely because she is on opiates still on senokot 10.. Chronic pain syndrome: on methadone, morphine, hydrocodone/acetaminophen and Lyrica. Code Visit Inpatient E&M: 10905 [facility] L3
--- NOTE | 2018-08-20 10:46 | PN_ITS ---
Patient Problems: Active and Suspected Problems (Last Reviewed 08/19/18 @ 04:36 by Jacques Santos MD) Community acquired pneumonia (Acute) Subjective: Patient seen and examined. She still complains of feeling weak and tired. She still has a cough and has some wheezing. She denies any chest pain, palpitations, abdominal pain, diarrhea or vomiting. Labs and vitals reviewed. He spiked a fever earlier this morning to 99.9 Fahrenheit but has subsequently come down to 98.4 Fahrenheit. White cell count trended up slightly to 11.2. She is now on 1 L of oxygen. Vitals/I&O's: Vital Signs Temp Pulse Resp BP Pulse Ox 98.4 F 73 20 H 115/45 L 93 08/20/18 09:26 08/20/18 09:26 08/20/18 09:26 08/20/18 09:26 08/20/18 09:26 Oxygen Flow Rate (L/min) 1 Oxygen Delivery Method Nasal Cannula Weight: 270 lb Body Mass Index (BMI) 43.5 Finger Stick Blood Glucose 279 Intake and Output for Last 24 Hours 08/18/18 08/19/18 08/20/18 23:59 23:59 23:59 Intake Total 1400 / 1400 1526 / 1526 Output Total 1999 / 1999 1800 / 1800 Balance -600 / -600 -274 / -274 General: Alert, Oriented x3, Cooperative, looks weak and lethargic HEENT: Atraumatic, PERRLA, EOMI, Normocephalic Oral: Dry Mucosa Neck: Supple, No JVD, Negative Carotid Bruits Lungs: mild wheezing in all lung davalos bilaterally Cardiovascular: Regular rate, Regular Rhythm, Normal S1, Normal S2, No murmurs Abdomen: Bowel Sounds Present, Soft, Non Tender, Non-Distended, No Hepato-splen omegaly Extremities: No clubbing, No cyanosis, No edema, Capillary Refill Less than 3 Seconds Skin: No rashes, No breakdown Musculoskeletal: No Tenderness to Palpation of Joints or Extremities Lymphatic: No Cervical, Supraclavicular, or Inguinal Adenopathy Neurological: Cranial nerves II-XII grossly intact, Neuro grossly intact, Motor Exam 5/5 strength throughout Psych/Mental Status: Normal Affect, Appropriate, Alert and oriented to time, place, person, mood and affect Microbiology Past 72 Hours 08/19/18 04:05 Mucosa - Nose Respiratory Panel (PCR) - Final Human [place] 08/19/18 01:45 Urine, Clean Catch Streptococcus pneumoniae Antigen (M - Final 08/19/18 01:45 Urine, Clean Catch Legionella Antigen - Final Laboratory Results 08/19/18 11:42: POC Glucose 380 H 08/19/18 14:58: Troponin I < 0.015 08/19/18 15:53: POC Glucose 275 H 08/19/18 17:51: Troponin I < 0.015 08/19/18 21:12: Troponin I < 0.015 08/19/18 22:34: POC Glucose 159 H 08/20/18 06:20: WBC 11.2 H, RBC 4.13 L, Hgb 10.9 L, Hct 33.9 L, MCV 82.1, MCH 26.4 L, MCHC 32.2, RDW 16.2 H, RDW Differential 48.3 H, Plt Count 373, MPV 9.5, Immature Gran % (Auto) 0.300, Neut % (Auto) 75.1 H, Lymph % (Auto) 12.0 L, [place] % (Auto) 12.0 H, Eos % (Auto) 0.2, Baso % (Auto) 0.4, Absolute Neuts (auto) 8.4 H, Absolute Lymphs (auto) 1.34, Total Counted Not Reportable 08/20/18 06:20: Sodium 134 L, Potassium 3.7, Chloride 98, Carbon Dioxide 27.0, Anion Gap 9, BUN 15, Creatinine 1.13 H, Estim Creat Clear Calc 47.70, Est GFR (MDRD) Af Amer 62, Est GFR (MDRD) Non-Af 52 L, BUN/Creatinine Ratio 13.3, Glucose 160 H, Calcium 8.1 L 08/20/18 06:34: POC Glucose 176 H Current Medications Acetaminophen (Tylenol) 650 mg PO Q4H PRN PRN PRN Reason: FEVER Last Admin: 08/20/18 05:44 Dose: 650 mg Albuterol Sulfate (Ventolin Aerosols) 2.5 mg INHALATION Q2H PRN PRN PRN Reason: SHORTNESS OF BREATH Albuterol/Ipratropium (Duoneb) 3 ml INHALATION Q4H.RT [facility] Last Admin: 08/20/18 08:18 Dose: 3 ml [facility]op[facility] ([facility]oprim) [facility] Last Admin: 08/20/18 09:28 Dose: 100 mg Aspirin (Aspirin, Baby) [facility] Last Admin: 08/20/18 09:27 Dose: 81 mg Atorvastatin Calcium (Lipitor) 20 mg PO 2200 [facility] Last Admin: 08/19/18 22:34 Dose: 20 mg Benzonatate (Tessalon Perle) 200 mg PO TID PRN PRN PRN Reason: COUGH Last Admin: 08/19/18 05:54 Dose: 200 mg Carvedilol (Coreg) 3.[facility] Last Admin: 08/20/18 09:27 Dose: 3.1249 mg Dextrose (D50w Syringe) 0 gm IV X1 PRN; Protocol PRN Reason: Hypoglycemia Enoxaparin Sodium (Lovenox) 40 mg SC DAILY@1000 [facility] Last Admin: 08/20/18 09:28 Dose: 40 mg Furosemide (Lasix) 40 mg PO DAILY [facility] Last Admin: 08/20/18 09:28 Dose: 40 mg Glucagon () 1 mg IM .X1 PRN PRN Reason: Hypoglycemia Guaifenesin (Mucinex) 1,200 mg PO BID [facility] Last Admin: 08/20/18 09:29 Dose: 1,200 mg Haloperidol (Haldol) 1.25 mg PO TID [facility] Last Admin: 08/20/18 05:45 Dose: 1.25 mg Azithromycin 500 mg/ Dextrose 255 mls @ 250 mls/hr IV Q24@2200 [facility] Stop: 08/21/18 23:02 Last Admin: 08/19/18 23:18 Dose: 250 mls/hr Ceftriaxone Sodium (Rocephin) 1 gm in 50 mls @ 100 mls/hr IV Q24@2200 [facility] Last Admin: 08/19/18 22:39 Dose: 100 mls/hr Insulin Glargine (Lantus (Bkc)) 10 units SC BREAKFAST [facility] Last Admin: 08/20/18 09:29 Dose: 10 u Insulin Human Lispro (Humalog Kwikpen (Bkc)) 0 unit SQ ACHS [facility]; Protocol Last Admin: 08/20/18 06:36 Dose: 2 units Lamotrigine (Lamictal) 100 mg PO BID [facility] Last Admin: 08/20/18 09:29 Dose: 100 mg Levothyroxine Sodium (Synthroid) 75 mcg PO DAILY@0600 [facility] Last Admin: 08/20/18 05:45 Dose: 75 mcg Losartan Potassium (Cozaar) 25 mg PO DAILY [facility] Last Admin: 08/20/18 09:28 Dose: 25 mg Magnesium Hydroxide (Milk Of Magnesia) 30 ml PO DAILY PRN PRN PRN Reason: Constipation Montelukast Sodium (Singulair) 10 mg PO DAILY [facility] Last Admin: 08/20/18 09:28 Dose: 10 mg Nutritional Formula (Lactose Free) (Glucerna Shake) 120 ml PO TIDCM [facility] Last Admin: 08/20/18 09:08 Dose: Not Given Ondansetron HCl (Zofran) 4 mg IV Q8H PRN PRN PRN Reason: NAUSEA Last Admin: 08/19/18 19:55 Dose: 4 mg Potassium Chloride (K-Dur) 20 meq [facility] Last Admin: 08/20/18 09:29 Dose: 20 meq Pramipexole Dihydrochloride (Mirapex) 0.5 mg PO QHS [facility] Last Admin: 08/19/18 22:35 Dose: 0.5 mg Pregabalin (Lyrica) 150 mg PO BID [facility] Last Admin: 08/20/18 09:28 Dose: 150 mg Promethazine HCl (Phenergan) 6.25 mg IV Q6H PRN PRN PRN Reason: NAUSEA/VOMITING Last Admin: 08/19/18 18:43 Dose: 6.25 mg Senna/Docusate Sodium (Senokot-S, Huma-Colace) 2 tablet PO BID [facility] Last Admin: 08/20/18 09:28 Dose: 2 tablet Sodium Chloride () 5 - 15 ml IV UD PRN PRN Reason: SALINE FLUSH Sodium Chloride () 5 - 15 ml IV UD PRN PRN Reason: SALINE FLUSH Last Admin: 08/19/18 11:44 Dose: 10 ml Medical Necessity - Tobacco Use Smoking Status: Never smoker Assessment/Plan All Active Problems (Last Reviewed 08/19/18 @ 04:36 by Jacques Santos MD) Community acquired pneumonia (Acute) SOB (shortness of breath) (Acute) Sepsis (Resolved) Chest pain (Resolved) Community acquired pneumonia (Resolved) History of pulmonary embolus (PE) (Resolved) Hypotension (Resolved) Intractable vomiting with nausea (Resolved) Pulmonary embolism (Resolved) 1. Acute hypoxemic respiratory failure due to community acquired pneumonia and URTI * feels weak and lethargic; has mild wheezing in all lung davalos * had a fever of 99.9F today, with wbc up to 11.2 * on IV ceftriaxone and azithromycin; will continue * respiratory panel detected human metapneumovirus * will add on steroids o/a of wheezing * down to 1L of oxygen by nasal canula this morning * continue titrating oxygen to maintain sats at >92% * 2. URTI due to human metapneumovirus * continue breathing treatments with duonebs * add on IV solumedrol * continue IVF * 3. diabetes mellitus: * home meds are Tresiba 200IU daily and humulin 50IU bid * blood sugars have been in 150s and 200s; ahd a peak in high 300s yesterday. * continue lantus 10IU qhs * accuchecks ACHS * ISS * * 4. Hyponatremia: * Resolving. Sodium up to 134 today. * continue IV fluids and monitor. * 5. Hypertension: Controlled. Carvedilol, valsartan and furosemide. 6. Hypothyroidism: On Synthroid 75 mg daily 7. Gastroparesis: On Haldol 8. Diastolic heart failure: EF of 60%. On Lasix. 9. Constipation: * On Movantik at home for opioid-induced constipation. * However she says it has not been very effective though this is likely because she is on opiates still * on senokot * 10.. Chronic pain syndrome: on methadone, morphine, hydrocodone/acetaminophen and Lyrica. Code Visit Inpatient E&M: [id number] [facility] L[facility]
--- NOTE | 2018-08-20 11:03 | CASEMGMT ---
ALMA CM Assessment Presentation: Shortness of breath, pulse ox 88%, CXR showed sander infiltrates R>L PCP: Dr. Parks Preferred [facility]acy: [facility] Insurance: Stephane Parr Prescription Benefit: yes LNOK: Sister, Linda Mike Living Arrangements: Own home, one story, 2 steps in. Transportation: Family/friends drive DME/HHC: pt denied having any DME. If Home oxygen is needed, ok with [facility] ([facility]ins) DC PLAN: Home
[2018-08-20 11:51] LABS: Bedside Glucose 133 mg/dL (70-110)
[2018-08-20] MEDS: Glucerna Shake 120 ML LIQUID PO ×2 (11:55→17:12)
--- NOTE | 2018-08-20 17:01 | CASEMGMT ---
Social Work: Spoke with patient in room regarding D/C plan. Patient admitting to needing retirement at D/C and is requesting this SW send referral to [facility]. TC to Yessy at [facility]. Yessy requesting clinicals. Clinicals faxed. [place] Edouard
[2018-08-20 17:16] LABS: Bedside Glucose 202 mg/dL (70-110)
[2018-08-20] MEDS: Ceftriaxone 1 GM/50 ML BAG IV (21:55)
[2018-08-20] MEDS: Nystatin Powder 15gm Bottle 1 APPLIC TOPICAL (21:56)
[2018-08-20] MEDS: Atorvastatin Calcium 20 MG Tablet PO (21:57)
[2018-08-20] MEDS: Pramipexole Di-HCl 0.5 MG Tablet PO (21:57)
[2018-08-20] MEDS: 0.9% NaCl Peripheral Flush Adult/Peds IV (21:58)
[2018-08-20 22:10] LABS: Bedside Glucose 239 mg/dL (70-110)
[2018-08-21] VITALS (12 sets, daily range): BP systolic 144–160; BP diastolic 71–74; PULSE 59–78; RESP 16–20; TEMP 36.1–36.7; O2SAT 90–95
[2018-08-21] MEDS: Ipratropium/Albuterol Sulfate 3 ML AMPUL.NEB INHALATION ×6 (02:46→22:57)
[2018-08-21] MEDS: 0.9% NaCl Peripheral Flush Adult/Peds IV ×3 (02:47→14:34)
[2018-08-21 04:35] LABS: Bedside Glucose 285 mg/dL (70-110)
[2018-08-21] MEDS: Haloperidol 5 MG Tablet 1.25 MG PO ×3 (06:35→22:07)
[2018-08-21] MEDS: Levothyroxine 75 MCG Tablet PO (06:35)
[2018-08-21 06:36] LABS: Absolute Lymphocyte Count 0.72 X10^3/ul (0.83-4.51); Absolute Neutrophil Count 3.8 X10^3/uL (2.0-7.7); Basophil# 0.01 X10^3/uL; Basophil% 0.2 % (0-1); Hematocrit 33.5 % (37-47); Hemoglobin 10.6 g/dl (12.0-15.0); Lymphocyte # 0.72 X10^3/ul (4.0); Lymphocyte % 14.8 % (19-41); Mean Corp Hgb Conc 31.6 g/gl (32-36); Mean Corpuscular Hgb 25.7 pg (27.0-32.0); Mean Corpuscular Volume 81.1 fL (81-99); Monocyte# 0.31 X10^3/uL; Monocyte% 6.4 % (0-10); Neutrophil # 3.81 X10^3/uL (2.7-7.7); Neutrophil % 78.4 % (47-70); Platelet Count 280 K/mm3 (150-450); RBC Distribution Width CV 15.8 % (11.6-14.6); RBC Distribution Width SD 46.8 fl (35.1-43.9); Red Blood Count 4.13 M/mm3 (4.2-5.4); White Blood Count 4.9 K/mm3 (4.4-11.0)
[2018-08-21] MEDS: Insulin Lispro 100 UNIT/ML INSULN.PEN SQ ×4 (06:36→22:05)
[2018-08-21 06:44] LABS: POSITIVE COUNT NO; POSITIVE DIFFERENTIAL NO; POSITIVE MORPHOLOGY NO
[2018-08-21 06:46] LABS: Anion Gap 6 (5-15); BUN 17 mg/dL (7-18); BUN/Creat Ratio 15.9 RATIO (10-20); Calcium,Total 8.3 mg/dL (8.5-10.1); Chloride 95 mmol/L (98-107); Creatinine, Serum 1.07 mg/dL (0.55-1.02); EST Glomerular Filtration Rate 55 mL/min (>60); Est Glom Filt Rate - Afr Amer 66 mL/min (>60); Estimated Creatinine Clearance 50.38 ml/min; Glucose 289 mg/dL (74-106); Potassium 4.2 mmol/L (3.5-5.1); Sodium Level 131 mmol/L (136-145)
[2018-08-21] MEDS: Magnesium Hydroxide 30 ML UDC PO (06:53)
[2018-08-21 07:01] LABS: Bedside Glucose 298 mg/dL (70-110)
[2018-08-21] MEDS: Montelukast 10 MG Tablet PO (08:12)
[2018-08-21] MEDS: Carvedilol 3.125 MG TABLET PO ×2 (08:12→17:04)
[2018-08-21] MEDS: Furosemide 40 MG Tablet PO (08:12)
[2018-08-21] MEDS: Losartan Potassium 25 MG Tablet PO (08:12)
[2018-08-21] MEDS: Aspirin 81 MG TAB.CHEW PO (08:12)
[2018-08-21] MEDS: lamoTRIgine 100 MG Tablet PO ×2 (08:12→22:13)
[2018-08-21] MEDS: Senna/Docusate Sodium 1 Tablet 2 TABLET PO ×2 (08:12→22:06)
[2018-08-21] MEDS: Enoxaparin 40 MG/0.4 ML Syringe SC (08:13)
[2018-08-21] MEDS: Pregabalin 75 MG Capsule 150 MG PO ×2 (08:13→22:06)
[2018-08-21] MEDS: guaiFENesin 1,200 MG Tablet 1200 MG PO ×2 (08:13→22:05)
[2018-08-21] MEDS: Allopurinol 100 MG Tablet PO (08:13)
[2018-08-21] MEDS: Glucerna Shake 120 ML LIQUID PO ×2 (10:49→17:05)
[2018-08-21] MEDS: Nystatin Powder 15gm Bottle 1 APPLIC TOPICAL ×2 (10:50→22:06)
[2018-08-21 11:56] LABS: Bedside Glucose 354 mg/dL (70-110)
[2018-08-21] MEDS: BENZOCAINE/MENTHOL 1 LOZENGE MUCOUS MEM (14:34)
--- NOTE | 2018-08-21 14:56 | PCM.PN.HOSP ---
Patient Problems: Active and Suspected Problems (Last Reviewed 08/19/18 @ 04:36 by Jacques Santos MD) Community acquired pneumonia (Acute) Subjective: Patient seen and examined. She still feels weak. She still has a mild cough and is on oxygen. She denies fever or chills, palpitations, abdominal pain, diarrhea vomiting. Review of systems otherwise negative. Labs and vitals reviewed. She is awaiting placement in [facility]. Vitals/I&O's: Vital Signs Temp Pulse Resp BP Pulse Ox 97.0 F L 74 20 H 159/74 H 90 08/21/18 09:00 08/21/18 11:08 08/21/18 11:08 08/21/18 09:00 08/21/18 09:00 Oxygen Flow Rate (L/min) 1 Oxygen Delivery Method Nasal Cannula Weight: 270 lb Body Mass Index (BMI) 43.5 Finger Stick Blood Glucose 279 Intake and Output for Last 24 Hours 08/19/18 08/20/18 08/21/18 23:59 23:59 23:59 Intake Total 1400 / 1400 2279 / 2279 2510 / 2510 Output Total 1999 / 1999 1800 / 1800 200 / 200 Balance -600 / -600 479 / 479 2310 / 2310 General: Alert, Oriented x3, Cooperative, looks weak and lethargic HEENT: Atraumatic, PERRLA, EOMI, Normocephalic Oral: Dry Mucosa Neck: Supple, No JVD, Negative Carotid Bruits Lungs: mild wheezing in all lung davalos bilaterally Cardiovascular: Regular rate, Regular Rhythm, Normal S1, Normal S2, No murmurs Abdomen: Bowel Sounds Present, Soft, Non Tender, Non-Distended, No Hepato-splenomegaly Extremities: No clubbing, No cyanosis, No edema, Capillary Refill Less than 3 Seconds Skin: No rashes, No breakdown Musculoskeletal: No Tenderness to Palpation of Joints or Extremities Lymphatic: No Cervical, Supraclavicular, or Inguinal Adenopathy Neurological: Cranial nerves II-XII grossly intact, Neuro grossly intact, Motor Exam 5/5 strength throughout Psych/Mental Status: Normal Affect, Appropriate, Alert and oriented to time, place, person, mood and affect Microbiology Past 72 Hours 08/19/18 01:33 Blood Culture (Wb) - Anticubital Right Blood Culture - Preliminary No growth in 48 hours. 08/19/18 04:05 Mucosa - Nose Respiratory Panel (PCR) - Final Human [place] 08/19/18 01:45 Urine, Clean Catch Streptococcus pneumoniae Antigen (M - Final 08/19/18 01:45 Urine, Clean Catch Legionella Antigen - Final Laboratory Results 08/20/18 17:08: POC Glucose 202 H 08/20/18 21:53: POC Glucose 239 H 08/21/18 04:32: POC Glucose 285 H 08/21/18 05:58: WBC 4.9, RBC 4.13 L, Hgb 10.6 L, Hct 33.5 L, MCV 81.1, MCH 25.7 L, MCHC 31.6 L, RDW 15.8 H, RDW Differential 46.8 H, Plt Count 280, MPV 9.0, Immature Gran % (Auto) 0.200, Neut % (Auto) 78.4 H, Lymph % (Auto) 14.8 L, [place] % (Auto) 6.4, Eos % (Auto) 0.0, Baso % (Auto) 0.2, Absolute Neuts (auto) 3.8, Absolute Lymphs (auto) 0.72 L, Total Counted Not Reportable 08/21/18 05:58: Sodium 131 L, Potassium 4.2, Chloride 95 L, Carbon Dioxide 30.0, Anion Gap 6, BUN 17, Creatinine 1.07 H, Estim Creat Clear Calc 50.38, Est GFR (MDRD) Af Amer 66, Est GFR (MDRD) Non-Af 55 L, BUN/Creatinine Ratio 15.9, Glucose 289 H, Calcium 8.3 L 08/21/18 06:33: POC Glucose 298 H 08/21/18 11:49: POC Glucose 354 H Current Medications Acetaminophen (Tylenol) 650 mg PO Q4H PRN PRN PRN Reason: FEVER Last Admin: 08/20/18 14:28 Dose: 650 mg Albuterol Sulfate (Ventolin Aerosols) 2.5 mg INHALATION Q2H PRN PRN PRN Reason: SHORTNESS OF BREATH Albuterol/Ipratropium (Duoneb) 3 ml INHALATION Q4H.RT [facility] Last Admin: 08/21/18 11:07 Dose: 3 ml Allopurinol (Zyloprim) 100 mg PO DAILYCM [facility] Last Admin: 08/21/18 08:13 Dose: 100 mg Aspirin (Aspirin, Baby) [facility] Last Admin: 08/21/18 08:12 Dose: 81 mg Atorvastatin Calcium (Lipitor) 20 mg PO 2200 [facility] Last Admin: 08/20/18 21:57 Dose: 20 mg Benzonatate (Tessalon Perle) 200 mg PO TID PRN PRN PRN Reason: COUGH Last Admin: 08/19/18 05:54 Dose: 200 mg Carvedilol (Coreg) 3.125 mg PO [facility]IDUN[facility] Last Admin: 08/21/18 08:12 Dose: 3.125 mg Dextrose (D50w Syringe) 0 gm IV X1 PRN; Protocol PRN Reason: Hypoglycemia Enoxaparin Sodium (Lovenox) 40 mg SC DAILY@1000 [facility] Last Admin: 08/21/18 08:13 Dose: 40 mg Furosemide (Lasix) 40 mg PO DAILY [facility] Last Admin: 08/21/18 08:12 Dose: 40 mg Glucagon () 1 mg IM .X1 PRN PRN Reason: Hypoglycemia Guaifenesin (Mucinex) 1,200 mg PO BID [facility] Last Admin: 08/21/18 08:13 Dose: 1,200 mg Haloperidol (Haldol) 1.25 mg PO TID [facility] Last Admin: 08/21/18 14:34 Dose: 1.25 mg Azithromycin 500 mg/ Dextrose 255 mls @ 250 mls/hr IV Q24@0 [facility] Stop: 08/21/18 23:02 Last Admin: 08/20/18 22:46 Dose: 250 mls/hr Ceftriaxone Sodium (Rocephin) 1 gm in 50 mls @ 100 mls/hr IV Q24@2200 [facility] Last Admin: 08/20/18 21:55 Dose: 100 mls/hr Insulin Glargine (Lantus (Bkc)) 10 units SC BREAKFAST [facility] Last Admin: 08/21/18 08:10 Dose: 10 u Insulin Human Lispro (Humalog Kwikpen (Bkc)) 0 unit SQ ACHS [facility]; Protocol Last Admin: 08/21/18 11:51 Dose: 8 units Lamotrigine (Lamictal) 100 mg PO BID [facility] Last Admin: 08/21/18 08:12 Dose: 100 mg Levothyroxine Sodium (Synthroid) 75 mcg PO DAILY@0600 [facility] Last Admin: 08/21/18 06:35 Dose: 75 mcg Losartan Potassium (Cozaar) 25 mg PO DAILY [facility] Last Admin: 08/21/18 08:12 Dose: 25 mg Magnesium Hydroxide (Milk Of Magnesia) 30 ml PO DAILY PRN PRN PRN Reason: Constipation Last Admin: 08/21/18 06:53 Dose: 30 ml Methylprednisolone (Solu-Medrol) 40 mg IV Q8 [facility] Last Admin: 08/21/18 14:34 Dose: 40 mg Montelukast Sodium (Singulair) 10 mg PO DAILY [facility] Last Admin: 08/21/18 08:12 Dose: 10 mg Nutritional Formula (Lactose Free) (Glucerna Shake) 120 ml PO TIDCM [facility] Last Admin: 08/21/18 11:51 Dose: Not Given Nystatin (Mycostatin Powder) 1 applic TOPICAL BID [facility]; Protocol Last Admin: 08/21/18 10:50 Dose: 1 applicatio Ondansetron HCl (Zofran) 4 mg IV Q8H PRN PRN PRN Reason: NAUSEA Last Admin: 08/19/18 19:55 Dose: 4 mg Potassium Chloride (K-Dur) 20 meq [facility] Last Admin: 08/21/18 08:13 Dose: 20 meq Pramipexole Dihydrochloride (Mirapex) 0.5 mg PO QHS [facility] Last Admin: 08/20/18 21:57 Dose: 0.5 mg Pregabalin (Lyrica) 150 mg PO BID [facility] Last Admin: 08/21/18 08:13 Dose: 150 mg Promethazine HCl (Phenergan) 6.25 mg IV Q6H PRN PRN PRN Reason: NAUSEA/VOMITING Last Admin: 08/19/18 18:43 Dose: 6.25 mg Senna/Docusate Sodium (Senokot-S, Huma-Colace) 2 tablet PO BID [facility] Last Admin: 08/21/18 08:12 Dose: 2 tablet Sodium Chloride () 5 - 15 ml IV UD PRN PRN Reason: SALINE FLUSH Last Admin: 08/21/18 14:34 Dose: 10 ml Sodium Chloride () 5 - 15 ml IV UD PRN PRN Reason: SALINE FLUSH Last Admin: 08/21/18 06:36 Dose: 10 ml Throat Lozenges (Cepacol Sore Throat Lozenge) 1 lozenge MUCOUS MEM Q2H PRN PRN PRN Reason: SORE THROAT Last Admin: 08/21/18 14:34 Dose: 1 lozenge Medical Necessity - Tobacco Use Smoking Status: Never smoker Assessment/Plan All Active Problems (Last Reviewed 08/19/18 @ 04:36 by Jacques Santos MD) Community acquired pneumonia (Acute) SOB (shortness of breath) (Acute) Sepsis (Resolved) Chest pain (Resolved) Community acquired pneumonia (Resolved) History of pulmonary embolus (PE) (Resolved) Hypotension (Resolved) Intractable vomiting with nausea (Resolved) Pulmonary embolism (Resolved) 1. Acute hypoxemic respiratory failure due to community acquired pneumonia and URTI still feels weak. lungs sound clearer today still on IV ceftriaxone and azithromycin on IV solumedrol; will dc IV antibiotics and IV solumedrol and start PO azithromycin and PO prednisone now down to 1L of oxygen; she qualified for home oxygen as her saturation dropped to 83% on room air. awaiting placement in SNF> 2. URTI due to human metapneumovirus continue breathing treatments with duonebs add on IV solumedrol continue IVF 3. diabetes mellitus: home meds are Tresiba 200IU daily and humulin 50IU bid blood sugars have been in 300s. will resume Tresiba accuchecks ACHS ISS 4. Hyponatremia: Sodium is to 131 today. continue IV fluids and monitor. 5. Hypertension: fairly Controlled. Carvedilol, valsartan and furosemide. 6. Hypothyroidism: On Synthroid 75 mg daily 7. Gastroparesis: On Haldol 8. Diastolic heart failure: EF of 60%. On Lasix. 9. Constipation: On Movantik at home for opioid-induced constipation. on senokot 10. Chronic pain syndrome: on methadone, morphine, hydrocodone/acetaminophen and Lyrica. DVT prophylaxis: lovenox Disposition: awaiting placement Code Visit Inpatient E&M: [id number] [facility] L3
--- NOTE | 2018-08-21 15:01 | PN_ITS ---
Patient Problems: Active and Suspected Problems (Last Reviewed 08/19/18 @ 04:36 by Jacques Santos MD) Community acquired pneumonia (Acute) Subjective: Patient seen and examined. She still feels weak. She still has a mild cough and is on oxygen. She denies fever or chills, palpitations, abdominal pain, diarrhea vomiting. Review of systems otherwise negative. Labs and vitals reviewed. She is awaiting placement in long term. Vitals/I&O's: Vital Signs Temp Pulse Resp BP Pulse Ox 97.0 F L 74 20 H 159/74 H 90 08/21/18 09:00 08/21/18 11:08 08/21/18 11:08 08/21/18 09:00 08/21/18 09:00 Oxygen Flow Rate (L/min) 1 Oxygen Delivery Method Nasal Cannula Weight: 270 lb Body Mass Index (BMI) 43.5 Finger Stick Blood Glucose 279 Intake and Output for Last 24 Hours 08/19/18 08/20/18 08/21/18 23:59 23:59 23:59 Intake Total 1400 / 1400 2279 / 2279 2510 / 2510 Output Total 1999 / 1999 1800 / 1800 200 / 200 Balance -600 / -600 479 / 479 2310 / 2310 General: Alert, Oriented x3, Cooperative, looks weak and lethargic HEENT: Atraumatic, PERRLA, EOMI, Normocephalic Oral: Dry Mucosa Neck: Supple, No JVD, Negative Carotid Bruits Lungs: mild wheezing in all lung davalos bilaterally Cardiovascular: Regular rate, Regular Rhythm, Normal S1, Normal S2, No murmurs Abdomen: Bowel Sounds Present, Soft, Non Tender, Non-Distended, No Hepato- splenomegaly Extremities: No clubbing, No cyanosis, No edema, Capillary Refill Less than 3 Seconds Skin: No rashes, No breakdown Musculoskeletal: No Tenderness to Palpation of Joints or Extremities Lymphatic: No Cervical, Supraclavicular, or Inguinal Adenopathy Neurological: Cranial nerves II-XII grossly intact, Neuro grossly intact, Motor Exam 5/5 strength throughout Psych/Mental Status: Normal Affect, Appropriate, Alert and oriented to time, place, person, mood and affect Microbiology Past 72 Hours 08/19/18 01:33 Blood Culture (Wb) - Anticubital Right Blood Culture - Preliminary No growth in 48 hours. 08/19/18 04:05 Mucosa - Nose Respiratory Panel (PCR) - Final Human [place] 08/19/18 01:45 Urine, Clean Catch Streptococcus pneumoniae Antigen (M - Final 08/19/18 01:45 Urine, Clean Catch Legionella Antigen - Final Laboratory Results 08/20/18 17:08: POC Glucose 202 H 08/20/18 21:53: POC Glucose 239 H 08/21/18 04:32: POC Glucose 285 H 08/21/18 05:58: WBC 4.9, RBC 4.13 L, Hgb 10.6 L, Hct 33.5 L, MCV 81.1, MCH 25.7 L, MCHC 31.6 L, RDW 15.8 H, RDW Differential 46.8 H, Plt Count 280, MPV 9.0, Immature Gran % (Auto) 0.200, Neut % (Auto) 78.4 H, Lymph % (Auto) 14.8 L, [place] % (Auto) 6.4, Eos % (Auto) 0.0, Baso % (Auto) 0.2, Absolute Neuts (auto) 3.8, Absolute Lymphs (auto) 0.72 L, Total Counted Not Reportable 08/21/18 05:58: Sodium 131 L, Potassium 4.2, Chloride 95 L, Carbon Dioxide 30.0, Anion Gap 6, BUN 17, Creatinine 1.07 H, Estim Creat Clear Calc 50.38, Est GFR (MDRD) Af Amer 66, Est GFR (MDRD) Non-Af 55 L, BUN/Creatinine Ratio 15.9, Glucose 289 H, Calcium 8.3 L 08/21/18 06:33: POC Glucose 298 H 08/21/18 11:49: POC Glucose 354 H Current Medications Acetaminophen (Tylenol) 650 mg PO Q4H PRN PRN PRN Reason: FEVER Last Admin: 08/20/18 14:28 Dose: 650 mg Albuterol Sulfate (Ventolin Aerosols) 2.5 mg INHALATION Q2H PRN PRN PRN Reason: SHORTNESS OF BREATH Albuterol/Ipratropium (Duoneb) 3 ml INHALATION Q4H.RT [facility] Last Admin: 08/21/18 11:07 Dose: 3 ml Allopurinol (Zyloprim) 100 mg PO DAILYCM [facility] Last Admin: 08/21/18 08:13 Dose: 100 mg [facility] ([facility], Baby) [facility] Last Admin: 08/21/18 08:12 Dose: 81 mg Atorvastatin Calcium (Lipitor) 20 mg PO 2200 [facility] Last Admin: 08/20/18 21:57 Dose: 20 mg Benzonatate (Tessalon Perle) 200 mg PO TID PRN PRN PRN Reason: COUGH Last Admin: 08/19/18 05:54 Dose: 200 mg Carvedil[facility] (Coreg) [facility] Last Admin: 08/21/18 08:12 Dose: 3.125 mg Dextrose (D50w Syringe) 0 gm IV X1 PRN; Protocol PRN Reason: Hypoglycemia Enoxaparin Sodium (Lovenox) 40 mg SC DAILY@1000 [facility] Last Admin: 08/21/18 08:13 Dose: 40 mg Furosemide (Lasix) 40 mg PO DAILY [facility] Last Admin: 08/21/18 08:12 Dose: 40 mg Glucagon () 1 mg IM .X1 PRN PRN Reason: Hypoglycemia Guaifenesin (Mucinex) 1,200 mg PO BID [facility] Last Admin: 08/21/18 08:13 Dose: 1,200 mg Haloperidol (Haldol) 1.25 mg PO TID [facility] Last Admin: 08/21/18 14:34 Dose: 1.25 mg Azithromycin 500 mg/ Dextrose 255 mls @ 250 mls/hr IV Q24@0 [facility] Stop: 08/21/18 23:02 Last Admin: 08/20/18 22:46 Dose: 250 mls/hr Ceftriaxone Sodium (Rocephin) 1 gm in 50 mls @ 100 mls/hr IV Q24@2200 [facility] Last Admin: 08/20/18 21:55 Dose: 100 mls/hr Insulin Glargine (Lantus (Bkc)) 10 units SC BREAKFAST [facility] Last Admin: 08/21/18 08:10 Dose: 10 u Insulin Human Lispro (Humalog Kwikpen (Bkc)) 0 unit SQ ACHS [facility]; Protocol Last Admin: 08/21/18 11:51 Dose: 8 units Lamotrigine (Lamictal) 100 mg PO BID [facility] Last Admin: 08/21/18 08:12 Dose: 100 mg Levothyroxine Sodium (Synthroid) 75 mcg PO DAILY@0600 [facility] Last Admin: 08/21/18 06:35 Dose: 75 mcg Losartan Potassium (Cozaar) 25 mg PO DAILY [facility] Last Admin: 08/21/18 08:12 Dose: 25 mg Magnesium Hydroxide (Milk Of Magnesia) 30 ml PO DAILY PRN PRN PRN Reason: Constipation Last Admin: 08/21/18 06:53 Dose: 30 ml Methylprednisolone (Solu-Medrol) 40 mg IV Q8 [facility] Last Admin: 08/21/18 14:34 Dose: 40 mg Montelukast Sodium (Singulair) 10 mg PO DAILY [facility] Last Admin: 08/21/18 08:12 Dose: 10 mg Nutritional Formula (Lactose Free) (Glucerna Shake) 120 ml PO TIDCM [facility] Last Admin: 08/21/18 11:51 Dose: Not Given Nystatin (Mycostatin Powder) 1 applic TOPICAL BID [facility]; Protocol Last Admin: 08/21/18 10:50 Dose: 1 applicatio Ondansetron HCl (Zofran) 4 mg IV Q8H PRN PRN PRN Reason: NAUSEA Last Admin: 08/19/18 19:55 Dose: 4 mg Potassium Chloride (K-Dur) [facility] Last Admin: 08/21/18 08:13 Dose: 20 meq Pramipexole Dihydrochloride (Mirapex) 0.5 mg PO QHS [facility] Last Admin: 08/20/18 21:57 Dose: 0.5 mg Pregabalin (Lyrica) 150 mg PO BID [facility] Last Admin: 08/21/18 08:13 Dose: 150 mg Promethazine HCl (Phenergan) 6.25 mg IV Q6H PRN PRN PRN Reason: NAUSEA/VOMITING Last Admin: 08/19/18 18:43 Dose: 6.25 mg Senna/Docusate Sodium (Senokot-S, Huma-Colace) 2 tablet PO BID [facility] Last Admin: 08/21/18 08:12 Dose: 2 tablet Sodium Chloride () 5 - 15 ml IV UD PRN PRN Reason: SALINE FLUSH Last Admin: 08/21/18 14:34 Dose: 10 ml Sodium Chloride () 5 - 15 ml IV UD PRN PRN Reason: SALINE FLUSH Last Admin: 08/21/18 06:36 Dose: 10 ml Throat Lozenges (Cepacol Sore Throat Lozenge) 1 lozenge MUCOUS MEM Q2H PRN PRN PRN Reason: SORE THROAT Last Admin: 08/21/18 14:34 Dose: 1 lozenge Medical Necessity - Tobacco Use Smoking Status: Never smoker Assessment/Plan All Active Problems (Last Reviewed 08/19/18 @ 04:36 by Jacques Santos MD) Community acquired pneumonia (Acute) SOB (shortness of breath) (Acute) Sepsis (Resolved) Chest pain (Resolved) Community acquired pneumonia (Resolved) History of pulmonary embolus (PE) (Resolved) Hypotension (Resolved) Intractable vomiting with nausea (Resolved) Pulmonary embolism (Resolved) 1. Acute hypoxemic respiratory failure due to community acquired pneumonia and URTI * still feels weak. lungs sound clearer today * still on IV ceftriaxone and azithromycin * on IV solumedrol; will dc IV antibiotics and IV solumedrol and start PO azithromycin and PO prednisone * now down to 1L of oxygen; she qualified for home oxygen as her saturation dropped to 83% on room air. * awaiting placement in SNF> * * 2. URTI due to human metapneumovirus * continue breathing treatments with duonebs * add on IV solumedrol * continue IVF * 3. diabetes mellitus: * home meds are Tresiba 200IU daily and humulin 50IU bid * blood sugars have been in 300s. * will resume Tresiba * accuchecks ACHS * ISS * 4. Hyponatremia: * Sodium is to 131 today. * continue IV fluids and monitor. * 5. Hypertension: fairly Controlled. Carvedilol, valsartan and furosemide. 6. Hypothyroidism: On Synthroid 75 mg daily 7. Gastroparesis: On Haldol 8. Diastolic heart failure: EF of 60%. On Lasix. 9. Constipation: * On Movantik at home for opioid-induced constipation. * on senokot * 10. Chronic pain syndrome: on methadone, morphine, hydrocodone/acetaminophen and Lyrica. DVT prophylaxis: lovenox Disposition: awaiting placement Code Visit Inpatient E&M: 80792 [facility] Hosp L3
--- NOTE | 2018-08-21 16:16 | CASEMGMT ---
Social Work: TC from from [facility] stating that [facility] is able to accept patient and will begin precert. [facility] requesting updated therapy notes. Updated therapy notes faxed. Updated Randolph MARQUEZ CM that patient is accepted at [facility] and precert has been started. PLAN: Patient will be discharged to [facility] pending precert. ARGENTINA Edouard
[2018-08-21] MEDS: Acetaminophen 325 MG Tablet 650 MG PO (17:00)
[2018-08-21 17:10] LABS: Bedside Glucose 311 mg/dL (70-110)
[2018-08-21] MEDS: Pramipexole Di-HCl 0.5 MG Tablet PO (22:05)
[2018-08-21] MEDS: Atorvastatin Calcium 20 MG Tablet PO (22:06)
[2018-08-21] MEDS: Azithromycin 250 MG Tablet 500 MG PO (22:06)
[2018-08-21 22:21] LABS: Bedside Glucose 369 mg/dL (70-110)
[2018-08-22] VITALS (14 sets, daily range): BP systolic 136–180; BP diastolic 67–98; PULSE 61–76; RESP 16–24; TEMP 36.4–36.8; O2SAT 93–97
[2018-08-22] MEDS: BENZOCAINE/MENTHOL 1 LOZENGE MUCOUS MEM ×8 (02:41→22:25)
[2018-08-22] MEDS: Benzonatate 100 MG Capsule 200 MG PO ×2 (02:41→13:41)
[2018-08-22] MEDS: Ipratropium/Albuterol Sulfate 3 ML AMPUL.NEB INHALATION ×6 (02:48→23:42)
[2018-08-22] MEDS: Levothyroxine 75 MCG Tablet PO (06:22)
[2018-08-22] MEDS: Haloperidol 5 MG Tablet 1.25 MG PO ×3 (06:22→22:43)
[2018-08-22] MEDS: Insulin Lispro 100 UNIT/ML INSULN.PEN SQ ×4 (06:25→22:49)
[2018-08-22] MEDS: Acetaminophen 325 MG Tablet 650 MG PO ×4 (06:29→19:55)
[2018-08-22 06:31] LABS: Bedside Glucose 191 mg/dL (70-110)
[2018-08-22 07:35] LABS: Absolute Lymphocyte Count 2.47 X10^3/ul (0.83-4.51); Absolute Neutrophil Count 5.2 X10^3/uL (2.0-7.7); Basophil# 0.03 X10^3/uL; Basophil% 0.3 % (0-1); Differential Indicated SCAN CRITERIA MET; Hematocrit 36.7 % (37-47); Hemoglobin 11.6 g/dl (12.0-15.0); Lymphocyte # 2.47 X10^3/ul (4.0); Lymphocyte % 27.9 % (19-41); Mean Corp Hgb Conc 31.6 g/gl (32-36); Mean Corpuscular Hgb 25.4 pg (27.0-32.0); Mean Corpuscular Volume 80.5 fL (81-99); Mean Platelet Vol. 9.4 fl (6.2-12.0); Monocyte# 1.15 X10^3/uL; Neutrophil # 5.15 X10^3/uL (2.7-7.7); Neutrophil % 58.3 % (47-70); POSITIVE COUNT NO; POSITIVE DIFFERENTIAL NO; POSITIVE MORPHOLOGY YES; Platelet Count 363 K/mm3 (150-450); RBC Distribution Width CV 15.8 % (11.6-14.6); RBC Distribution Width SD 45.9 fl (35.1-43.9); Red Blood Count 4.56 M/mm3 (4.2-5.4); White Blood Count 8.8 K/mm3 (4.4-11.0)
[2018-08-22 07:44] LABS: Anion Gap 8 (5-15); BUN 18 mg/dL (7-18); BUN/Creat Ratio 17.5 RATIO (10-20); Calcium,Total 9.1 mg/dL (8.5-10.1); Chloride 95 mmol/L (98-107); Creatinine, Serum 1.03 mg/dL (0.55-1.02); EST Glomerular Filtration Rate 57 mL/min (>60); Est Glom Filt Rate - Afr Amer 69 mL/min (>60); Estimated Creatinine Clearance 52.34 ml/min; Glucose 185 mg/dL (74-106); Potassium 3.6 mmol/L (3.5-5.1); Sodium Level 136 mmol/L (136-145)
[2018-08-22] MEDS: Carvedilol 3.125 MG TABLET PO ×2 (08:35→22:42)
[2018-08-22] MEDS: predniSONE 20 MG Tablet 40 MG PO (08:35)
[2018-08-22] MEDS: Allopurinol 100 MG Tablet PO (08:35)
[2018-08-22] MEDS: Glucerna Shake 120 ML LIQUID PO ×3 (08:36→16:51)
[2018-08-22] MEDS: Aspirin 81 MG TAB.CHEW PO (08:40)
--- NOTE | 2018-08-22 08:57 | CASEMGMT ---
AJ left Yessy at [facility] a message letting her know to call this SW if precert is attained for pt today. ARGENTINA Brownlee, DEPARTMENT HEAD [employer]
[2018-08-22] MEDS: Enoxaparin 40 MG/0.4 ML Syringe SC (10:53)
[2018-08-22] MEDS: Montelukast 10 MG Tablet PO (10:53)
[2018-08-22] MEDS: Furosemide 40 MG Tablet PO (10:53)
[2018-08-22] MEDS: Senna/Docusate Sodium 1 Tablet 2 TABLET PO ×2 (10:53→22:43)
[2018-08-22] MEDS: lamoTRIgine 100 MG Tablet PO ×2 (10:53→22:42)
[2018-08-22] MEDS: Losartan Potassium 25 MG Tablet PO (10:53)
[2018-08-22] MEDS: Pregabalin 75 MG Capsule 150 MG PO ×2 (10:53→22:48)
[2018-08-22] MEDS: guaiFENesin 1,200 MG Tablet 1200 MG PO ×2 (10:53→22:42)
[2018-08-22] MEDS: Nystatin Powder 15gm Bottle 1 APPLIC TOPICAL ×2 (11:15→22:50)
--- NOTE | 2018-08-22 11:28 | CASEMGMT ---
SW received a call from Yessy at [facility], stating pt's case went to medical review. SW let physician know. SW attempted to speak w/pt, she is asleep. SW will continue to follow. ARGENTINA Brownlee, FERTILIZING MACHINE OPERATOR
[2018-08-22 11:31] LABS: Bedside Glucose 313 mg/dL (70-110)
--- NOTE | 2018-08-22 11:42 | EKG12_ITS ---
Test Reason : CHEST PAIN Blood Pressure : / mmHG Vent. Rate : 080 BPM Atrial Rate : 080 BPM P-R Int : 136 ms QRS Dur : 088 ms QT Int : 430 ms P-R-T Axes : -14 -14 058 degrees QTc Int : 495 ms Normal sinus rhythm Prolonged QT Abnormal ECG When compared with ECG of 19-AUG-2018 14:29, MANUAL COMPARISON REQUIRED, DATA IS UNCONFIRMED Confirmed by ABIMAEL CURRY, CAROLE ([id number]), movie editor MAIKEL MULLEN ([id number]) on 09/01/2018 10:29:39 AM Referred By: Jacques Santos Confirmed By:CAROLE VARGHESE MD
--- NOTE | 2018-08-22 11:42 | NURSING ---
CPS called and notified of stat EKG- due to c/o chest pain. notified.
--- NOTE | 2018-08-22 11:46 | NURSING ---
Pt complaints of chest pain rates it 4 of 10. Pt is anxious and states she is jittery and she hurts all over . Pain in chest remains in the same area o changes and hurts with deep breathing. Pt later states she is anxious and cannot handle the pain with coughing how she hurts all over. Prn tylenol was given for pain and pt was given her lyrica. Stat EKG done. She is in bed fussing about her oxygen tubing redirected that ekg setting up is a priority over a twisted tubing. Pt is able to move bilateral arms. EKG Done and Physician paged.
--- NOTE | 2018-08-22 12:45 | NURSING ---
Pt is sitting up at edge of bed leaning over beside table. States pain in chest is tolerable she is able to eat her lunch sitting at bedside. Pt has no distress while eating at this time. Cardiac enzymes drawn and send to lab. Pt remains resting in bed.
--- NOTE | 2018-08-22 13:02 | CASEMGMT ---
Addendum entered by Velma Edmondson 08/22/18 15:53: SW spoke w/physician, she states [facility] has not yet called. SW explained that they just called this SW and said they have 24-48 hours to call the physician. Physician suggested pt go stay w/her sister. SW spoke w/pt about staying w/her sister if the insurance company does not cover fdc. Pt states she does not know if her sister will want her bringing this(her illness) into her home. She states her sister works but her brother in law is home and retired. Pt also does live with her 17 year old granddaughter but she is in school all day, and her 40 year old step son but he works. SW suggested to pt to speak w/her sister about the possibility of staying w/her if the event insurance will not cover SNF. Pt states will do so. SW will continue to follow. ARGENTINA Brownlee, TRANSPORTATION ASSOCIATE Original Note: Addendum entered by Velma Edmondson 08/22/18 15:29: SW received a call from Frances at [facility] confirming the physician had agreed to the peer to peer, AJ let Frances know she had. Frances states she will pass the information on to the physician and they have 24-48 hours to respond to the request. AJ let pt know that we may not hear back from insurance today, and if not then pt will be here with us through the weekend. If the denial is upheld, AJ let pt know that home health and home oxygen will be arranged for her. Pt states understanding. ARGENTINA Brownlee, TRANSPORTATION ASSOCIATE Original Note: Addendum entered by Velma Edmondson 08/22/18 15:14: AJ did complete hospital exemption in the event the denial for SNF is overturned. If it is upheld, CM made a referral for home health and home O2 instructions on a green sheet. AJ will continue to follow, AJ asked Yessy to call the nurse's station directly if pt is approved. If the denial is upheld, AJ will ask Yessy to call the SW here tomorrow and leave a message, as the SW will need to follow up. Two green sheets on chart, one for SNF and one for home health, and Saturday SW will follow up accordingly should she get a message back from [facility]. ARGENTINA Brownlee, TRANSPORTATION ASSOCIATE Original Note: SW received a call from [employer] insurance stating pt is denied for SNF. SW given the following number for peer to peer, , reference number is [id number]. SW spoke w/pt, she does not feel she can manage at home. SW explained will see if physician is able to call the insurance and speak w/them regarding their decision. SW spoke w/physician, she is willing to call insurance for a peer to peer call. SW called [facility] and gave them the needed information to call physician here directly for a peer to peer appeal. SW will continue to follow. ARGENTINA Brownlee, TRANSPORTATION ASSOCIATE
--- NOTE | 2018-08-22 13:45 | CASEMGMT ---
RN CM Note. DC PLAN: undetermined. Awaiting for [id number] call for fpc approval. IF SNF is denied, recommend pt continues medical care/PT/OT @ [facility] until stable to return home. Home Health with [facility] is available on dc and if home O2 is needed, [facility] can be used. See Green sheet for DME/HHS for home. -See SW note for further details. Charge nurse updated on above. Suellen JOHN RN ACM
--- NOTE | 2018-08-22 15:25 | PCM.PN.HOSP ---
Patient Problems: Active and Suspected Problems (Last Reviewed 08/19/18 @ 04:36 by Jacques Santos MD) Community acquired pneumonia (Acute) Subjective: Patient seen and examined. She still feels weak, though she says SOB has improved a bit. She denies any fever, palpitations, dizziness, abdominal pain, diarrhea or vomiting. She does still have a cough but it is improving. Blood pressure is fairly controlled, and hyponatremis has resolved. Blood sugars are poorly controlled. She remains on 2L of oxygen. Insurance refused precert for SNF, so I will conduct a peer to peer today with insurance doctor. Complaint of chest pain today. She rates it at about 4/10. Troponins were negative and EKG showed no acute ST changes. Vitals/I&O's: Vital Signs Temp Pulse Resp BP Pulse Ox 98.3 F 74 18 171/79 H 94 08/22/18 11:42 08/22/18 11:42 08/22/18 11:42 08/22/18 11:42 08/22/18 11:42 Oxygen Flow Rate (L/min) 2 Oxygen Delivery Method Nasal Cannula Weight: 270 lb Body Mass Index (BMI) 43.5 Finger Stick Blood Glucose 279 Intake and Output for Last 24 Hours 08/20/18 08/21/18 08/22/18 23:59 23:59 23:59 Intake Total 2279 / 2279 2510 / 2510 1300 / 1300 Output Total 1800 / 1800 200 / 200 1200 / 1200 Balance 479 / 479 2310 / 2310 100 / 100 General: Alert, Oriented x3, Cooperative, still weak and lethargic HEENT: Atraumatic, PERRLA, EOMI, Normocephalic Oral: Dry Mucosa Neck: Supple, No JVD, Negative Carotid Bruits Lungs: mild wheezing in all lung davalos bilaterally Cardiovascular: Regular rate, Regular Rhythm, Normal S1, Normal S2, No murmurs Abdomen: Bowel Sounds Present, Soft, Non Tender, Non-Distended, No Hepato-splenomegaly Extremities: No clubbing, No cyanosis, No edema, Capillary Refill Less than 3 Seconds Skin: No rashes, No breakdown Musculoskeletal: No Tenderness to Palpation of Joints or Extremities Lymphatic: No Cervical, Supraclavicular, or Inguinal Adenopathy Neurological: Cranial nerves II-XII grossly intact, Neuro grossly intact, Motor Exam 5/5 strength throughout Psych/Mental Status: Normal Affect, Appropriate, Alert and oriented to time, place, person, mood and affect Microbiology Past 72 Hours 08/19/18 01:33 Blood Culture (Wb) - Anticubital Right Blood Culture - Preliminary No growth in 48 hours. 08/19/18 04:05 Mucosa - Nose Respiratory Panel (PCR) - Final Human [place] Laboratory Results 08/21/18 16:53: POC Glucose 311 H 08/21/18 22:05: POC Glucose 369 H 08/22/18 06:25: POC Glucose 191 H 08/22/18 06:53: WBC 8.8, RBC 4.56, Hgb 11.6 L, Hct 36.7 L, MCV 80.5 L, MCH 25.4 L, MCHC 31.6 L, RDW 15.8 H, RDW Differential 45.9 H, Plt Count 363, MPV 9.4, Immature Gran % (Auto) 0.500, Neut % (Auto) 58.3, Lymph % (Auto) 27.9, [place] % (Auto) 13.0 H, Eos % (Auto) 0.0, Baso % (Auto) 0.3, Absolute Neuts (auto) 5.2, Absolute Lymphs (auto) 2.47, Total Counted Not Reportable, Differential Comment COMMENT 08/22/18 06:53: Sodium 136, Potassium 3.6, Chloride 95 L, Carbon Dioxide 33.0 H, Anion Gap 8, BUN 18, Creatinine 1.03 H, Estim Creat Clear Calc 52.34, Est GFR (MDRD) Af Amer 69, Est GFR (MDRD) Non-Af 57 L, BUN/Creatinine Ratio 17.5, Glucose 185 H, Calcium 9.1 08/22/18 11:17: POC Glucose 313 H 08/22/18 12:05: Troponin I < 0.015 08/22/18 14:25: Troponin I < 0.015 Current Medications Acetaminophen (Tylenol) 650 mg PO Q4H PRN PRN PRN Reason: FEVER Last Admin: 08/22/18 11:15 Dose: 650 mg Albuterol Sulfate (Ventolin Aerosols) 2.5 mg INHALATION Q2H PRN PRN PRN Reason: SHORTNESS OF BREATH Albuterol/Ipratropium (Duoneb) 3 ml INHALATION Q4H.RT [facility] Last Admin: 08/22/18 14:57 Dose: 3 ml Allopurinol (Zyloprim) 100 mg PO DAILYCM [facility] Last Admin: 08/22/18 08:35 Dose: 100 mg Aspirin (Aspirin, Baby) 81 mg PO DAILYCM [facility] Last Admin: 08/22/18 08:40 Dose: 81 mg Atorvastatin Calcium (Lipitor) 20 mg PO 2200 [facility] Last Admin: 08/21/18 22:06 Dose: 20 mg Azithromycin (Zithromax) 500 mg PO Q24H [facility] Stop: 08/23/18 22:01 Last Admin: 08/21/18 22:06 Dose: 500 mg Benzonatate (Tessalon Perle) 200 mg PO TID PRN PRN PRN Reason: COUGH Last Admin: 08/22/18 13:41 Dose: 200 mg Carvedilol (Coreg) 3.125 mg PO BID [facility] Last Admin: 08/22/18 11:56 Dose: Not Given Dextrose (D50w Syringe) 0 gm IV X1 PRN; Protocol PRN Reason: Hypoglycemia Enoxaparin Sodium (Lovenox) 40 mg SC DAILY@1000 [facility] Last Admin: 08/22/18 10:53 Dose: 40 mg Furosemide (Lasix) 40 mg PO DAILY [facility] Last Admin: 08/22/18 10:53 Dose: 40 mg Glucagon () 1 mg IM .X1 PRN PRN Reason: Hypoglycemia Guaifenesin (Mucinex) 1,200 mg PO BID [facility] Last Admin: 08/22/18 10:53 Dose: 1,200 mg Haloperidol (Haldol) 1.25 mg PO TID [facility] Last Admin: 08/22/18 13:41 Dose: 1.25 mg Insulin Glargine (Lantus (Bkc)) 10 units SC BREAKFAST [facility] Last Admin: 08/22/18 08:36 Dose: 10 u Insulin Human Lispro (Humalog Kwikpen (Bkc)) 0 unit SQ ACHS [facility]; Protocol Last Admin: 08/22/18 11:18 Dose: 6 units Lamotrigine (Lamictal) 100 mg PO BID [facility] Last Admin: 08/22/18 10:53 Dose: 100 mg Levothyroxine Sodium (Synthroid) 75 mcg PO DAILY@0600 [facility] Last Admin: 08/22/18 06:22 Dose: 75 mcg Losartan Potassium (Cozaar) 25 mg PO DAILY [facility] Last Admin: 08/22/18 10:53 Dose: 25 mg Magnesium Hydroxide (Milk Of Magnesia) 30 ml PO DAILY PRN PRN PRN Reason: Constipation Last Admin: 08/21/18 06:53 Dose: 30 ml Montelukast Sodium (Singulair) 10 mg PO DAILY [facility] Last Admin: 08/22/18 10:53 Dose: 10 mg Nutritional Formula (Lactose Free) (Glucerna Shake) 120 ml PO TIDCM [facility] Last Admin: 08/22/18 11:14 Dose: 120 ml Nystatin (Mycostatin Powder) 1 applic TOPICAL BID [facility]; Protocol Last Admin: 08/22/18 11:15 Dose: 1 applicatio Ondansetron HCl (Zofran) 4 mg IV Q8H PRN PRN PRN Reason: NAUSEA Last Admin: 08/19/18 19:55 Dose: 4 mg Potassium Chloride (K-Dur) [facility] Last Admin: 08/22/18 08:36 Dose: 20 meq Pramipexole Dihydrochloride (Mirapex) 0.5 mg PO QHS [facility] Last Admin: 08/21/18 22:05 Dose: 0.5 mg Prednisone () 40 mg PO DAILY@0800 [facility] Stop: 08/27/18 08:01 Last Admin: 08/22/18 08:35 Dose: 40 mg Pregabalin (Lyrica) 150 mg PO BID [facility] Last Admin: 08/22/18 10:53 Dose: 150 mg Promethazine HCl (Phenergan) 6.25 mg IV Q6H PRN PRN PRN Reason: NAUSEA/VOMITING Last Admin: 08/19/18 18:43 Dose: 6.25 mg Senna/Docusate Sodium (Senokot-S, Huma-Colace) 2 tablet PO BID [facility] Last Admin: 08/22/18 10:53 Dose: 2 tablet Sodium Chloride () 5 - 15 ml IV UD PRN PRN Reason: SALINE FLUSH Last Admin: 08/21/18 14:34 Dose: 10 ml Sodium Chloride () 5 - 15 ml IV UD PRN PRN Reason: SALINE FLUSH Last Admin: 08/21/18 06:36 Dose: 10 ml Throat Lozenges (Cepacol Sore Throat Lozenge) 1 lozenge MUCOUS MEM Q2H PRN PRN PRN Reason: SORE THROAT Last Admin: 08/22/18 11:22 Dose: 1 lozenge Medical Necessity - Tobacco Use Smoking Status: Never smoker Assessment/Plan All Active Problems (Last Reviewed 08/19/18 @ 04:36 by Jacques Santos MD) Community acquired pneumonia (Acute) SOB (shortness of breath) (Acute) Sepsis (Resolved) Chest pain (Resolved) Community acquired pneumonia (Resolved) History of pulmonary embolus (PE) (Resolved) Hypotension (Resolved) Intractable vomiting with nausea (Resolved) Pulmonary embolism (Resolved) 1. Acute hypoxemic respiratory failure due to community acquired pneumonia and URTI still feels weak. lungs sound clearer today on PO azithromycin and PO solumedrol on 2L of oxygen. Qualifies for home oxygen awaiting placement. 2. URTI due to human metapneumovirus continue breathing treatments with duonebs prednisone. 3. diabetes mellitus: home meds are Tresiba 200IU daily and humulin 50IU bid blood sugars have been in 300s. will resume Tresiba accuchecks ACHS ISS 4. Hyponatremia:resolved. WIll dc IVF 5. Hypertension: fairly Controlled. Carvedilol, valsartan and furosemide. 6. Hypothyroidism: On Synthroid 75 mg daily 7. Gastroparesis: On Haldol 8. Diastolic heart failure: EF of 60%. On Lasix. 9. Constipation: On Movantik at home for opioid-induced constipation. on senokot 10. Chronic pain syndrome: on methadone, morphine, hydrocodone/acetaminophen and Lyrica. DVT prophylaxis: lovenox Disposition: awaiting placement. Insurance refused precert. Waiting to do peer to peer with insurance physician. Insurance physician to call in 24-48 hours. Code Visit Inpatient E&M: 82148 [facility] Hosp L3
--- NOTE | 2018-08-22 15:30 | PN_ITS ---
Patient Problems: Active and Suspected Problems (Last Reviewed 08/19/18 @ 04:36 by Jacques Santos MD) Community acquired pneumonia (Acute) Subjective: Patient seen and examined. She still feels weak, though she says SOB has improved a bit. She denies any fever, palpitations, dizziness, abdominal pain, diarrhea or vomiting. She does still have a cough but it is improving. Blood pressure is fairly controlled, and hyponatremis has resolved. Blood sugars are poorly controlled. She remains on 2L of oxygen. Insurance refused precert for SNF, so I will conduct a peer to peer today with insurance doctor. Complaint of chest pain today. She rates it at about 4/10. Troponins were negative and EKG showed no acute ST changes. Vitals/I&O's: Vital Signs Temp Pulse Resp BP Pulse Ox 98.3 F 74 18 171/79 H 94 08/22/18 11:42 08/22/18 11:42 08/22/18 11:42 08/22/18 11:42 08/22/18 11:42 Oxygen Flow Rate (L/min) 2 Oxygen Delivery Method Nasal Cannula Weight: 270 lb Body Mass Index (BMI) 43.5 Finger Stick Blood Glucose 279 Intake and Output for Last 24 Hours 08/20/18 08/21/18 08/22/18 23:59 23:59 23:59 Intake Total 2279 / 2279 2510 / 2510 1300 / 1300 Output Total 1800 / 1800 200 / 200 1200 / 1200 Balance 479 / 479 2310 / 2310 100 / 100 General: Alert, Oriented x3, Cooperative, still weak and lethargic HEENT: Atraumatic, PERRLA, EOMI, Normocephalic Oral: Dry Mucosa Neck: Supple, No JVD, Negative Carotid Bruits Lungs: mild wheezing in all lung davalos bilaterally Cardiovascular: Regular rate, Regular Rhythm, Normal S1, Normal S2, No murmurs Abdomen: Bowel Sounds Present, Soft, Non Tender, Non-Distended, No Hepato- splenomegaly Extremities: No clubbing, No cyanosis, No edema, Capillary Refill Less than 3 Seconds Skin: No rashes, No breakdown Musculoskeletal: No Tenderness to Palpation of Joints or Extremities Lymphatic: No Cervical, Supraclavicular, or Inguinal Adenopathy Neurological: Cranial nerves II-XII grossly intact, Neuro grossly intact, Motor Exam 5/5 strength throughout Psych/Mental Status: Normal Affect, Appropriate, Alert and oriented to time, place, person, mood and affect Microbiology Past 72 Hours 08/19/18 01:33 Blood Culture (Wb) - Anticubital Right Blood Culture - Preliminary No growth in 48 hours. 08/19/18 04:05 Mucosa - Nose Respiratory Panel (PCR) - Final Human [place] [facility] Results 08/21/18 16:53: POC Glucose 311 H 08/21/18 22:05: POC Glucose 369 H 08/22/18 06:25: POC Glucose 191 H 08/22/18 06:53: WBC 8.8, RBC 4.56, Hgb 11.6 L, Hct 36.7 L, MCV 80.5 L, MCH 25.4 L, MCHC 31.6 L, RDW 15.8 H, RDW Differential 45.9 H, Plt Count 363, MPV 9.4, Immature Gran % (Auto) 0.500, Neut % (Auto) 58.3, Lymph % (Auto) 27.9, [place] % (Auto) 13.0 H, Eos % (Auto) 0.0, Baso % (Auto) 0.3, Absolute Neuts (auto) 5.2, Absolute Lymphs (auto) 2.47, Total Counted Not Reportable, Differential Comment COMMENT 08/22/18 06:53: Sodium 136, Potassium 3.6, Chloride 95 L, Carbon Dioxide 33.0 H, Anion Gap 8, BUN 18, Creatinine 1.03 H, Estim Creat Clear Calc 52.34, Est GFR (MDRD) Af Amer 69, Est GFR (MDRD) Non-Af 57 L, BUN/Creatinine Ratio 17.5, Glucose 185 H, Calcium 9.1 08/22/18 11:17: POC Glucose 313 H 08/22/18 12:05: Troponin I < 0.015 08/22/18 14:25: Troponin I < 0.015 Current Medications Acetaminophen (Tylenol) 650 mg PO Q4H PRN PRN PRN Reason: FEVER Last Admin: 08/22/18 11:15 Dose: 650 mg Albuterol Sulfate (Ventolin Aerosols) 2.5 mg INHALATION Q2H PRN PRN PRN Reason: SHORTNESS OF BREATH Albuterol/Ipratropium (Duoneb) 3 ml INHALATION Q4H.RT FORD Last Admin: 08/22/18 14:57 Dose: 3 ml Allopurinol (Zyloprim) 100 mg PO DAILYCM [facility] Last Admin: 08/22/18 08:35 Dose: 100 mg Aspirin (Aspirin, Baby) 81 mg PO DAILYCM [facility] Last Admin: 08/22/18 08:40 Dose: 81 mg Atorvastatin Calcium (Lipitor) 20 mg PO 2200 [facility] Last Admin: 08/21/18 22:06 Dose: 20 mg Azithromycin (Zithromax) 500 mg PO Q24H [facility] Stop: 08/23/18 22:01 Last Admin: 08/21/18 22:06 Dose: 500 mg Benzonatate (Tessalon Perle) 200 mg PO TID PRN PRN PRN Reason: COUGH Last Admin: 08/22/18 13:41 Dose: 200 mg Carvedilol (Coreg) 3.125 mg PO BID [facility] Last Admin: 08/22/18 11:56 Dose: Not Given Dextrose (D50w Syringe) 0 gm IV X1 PRN; Protocol PRN Reason: Hypoglycemia Enoxaparin Sodium (Lovenox) 40 mg SC DAILY@1000 [facility] Last Admin: 08/22/18 10:53 Dose: 40 mg Furosemide (Lasix) 40 mg PO DAILY [facility] Last Admin: 08/22/18 10:53 Dose: 40 mg Glucagon () 1 mg IM .X1 PRN PRN Reason: Hypoglycemia Guaifenesin (Mucinex) 1,200 mg PO BID [facility] Last Admin: 08/22/18 10:53 Dose: 1,200 mg Haloperidol (Haldol) 1.25 mg PO TID [facility] Last Admin: 08/22/18 13:41 Dose: 1.25 mg Insulin Glargine (Lantus (Bkc)) 10 units SC BREAKFAST [facility] Last Admin: 08/22/18 08:36 Dose: 10 u Insulin Human Lispro (Humalog Kwikpen (Bkc)) 0 unit SQ ACHS [facility]; Protocol Last Admin: 08/22/18 11:18 Dose: 6 units Lamotrigine (Lamictal) 100 mg PO BID [facility] Last Admin: 08/22/18 10:53 Dose: 100 mg Levothyroxine Sodium (Synthroid) 75 mcg PO DAILY@0600 [facility] Last Admin: 08/22/18 06:22 Dose: 75 mcg Losartan Potassium (Cozaar) 25 mg PO DAILY [facility] Last Admin: 08/22/18 10:53 Dose: 25 mg Magnesium Hydroxide (Milk Of Magnesia) 30 ml PO DAILY PRN PRN PRN Reason: Constipation Last Admin: 08/21/18 06:53 Dose: 30 ml Montelukast Sodium (Singulair) 10 mg PO DAILY [facility] Last Admin: 08/22/18 10:53 Dose: 10 mg Nutritional Formula (Lactose Free) (Glucerna Shake) 120 ml PO TIDCM [facility] Last Admin: 08/22/18 11:14 Dose: 120 ml Nystatin (Mycostatin Powder) 1 applic TOPICAL BID [facility]; Protocol Last Admin: 08/22/18 11:15 Dose: 1 applicatio Ondansetron HCl (Zofran) 4 mg IV Q8H PRN PRN PRN Reason: NAUSEA Last Admin: 08/19/18 19:55 Dose: 4 mg Potassium [facility]) [facility] Last Admin: 08/22/18 08:36 Dose: 20 meq Pramipexole Dihydrochloride (Mirapex) 0.5 mg PO QHS [facility] Last Admin: 08/21/18 22:05 Dose: 0.5 mg Prednisone () 40 mg PO DAILY@0800 [facility] Stop: 08/27/18 08:01 Last Admin: 08/22/18 08:35 Dose: 40 mg Pregabalin (Lyrica) 150 mg PO BID [facility] Last Admin: 08/22/18 10:53 Dose: 150 mg Promethazine HCl (Phenergan) 6.25 mg IV Q6H PRN PRN PRN Reason: NAUSEA/VOMITING Last Admin: 08/19/18 18:43 Dose: 6.25 mg Senna/Docusate Sodium (Senokot-S, Huma-Colace) 2 tablet PO BID [facility] Last Admin: 08/22/18 10:53 Dose: 2 tablet Sodium Chloride () 5 - 15 ml IV UD PRN PRN Reason: SALINE FLUSH Last Admin: 08/21/18 14:34 Dose: 10 ml Sodium Chloride () 5 - 15 ml IV UD PRN PRN Reason: SALINE FLUSH Last Admin: 08/21/18 06:36 Dose: 10 ml Throat Lozenges (Cepacol Sore Throat Lozenge) 1 lozenge MUCOUS MEM Q2H PRN PRN PRN Reason: SORE THROAT Last Admin: 08/22/18 11:22 Dose: 1 lozenge Medical Necessity - Tobacco Use Smoking Status: Never smoker Assessment/Plan All Active Problems (Last Reviewed 08/19/18 @ 04:36 by Jacques Santos MD) Community acquired pneumonia (Acute) SOB (shortness of breath) (Acute) Sepsis (Resolved) Chest pain (Resolved) Community acquired pneumonia (Resolved) History of pulmonary embolus (PE) (Resolved) Hypotension (Resolved) Intractable vomiting with nausea (Resolved) Pulmonary embolism (Resolved) 1. Acute hypoxemic respiratory failure due to community acquired pneumonia and URTI * still feels weak. lungs sound clearer today * on PO azithromycin and PO solumedrol * on 2L of oxygen. Qualifies for home oxygen * awaiting placement. * * 2. URTI due to human metapneumovirus * continue breathing treatments with duonebs * prednisone. * 3. diabetes mellitus: * home meds are Tresiba 200IU daily and humulin 50IU bid * blood sugars have been in 300s. * will resume Tresiba * accuchecks ACHS * ISS * 4. Hyponatremia:resolved. WIll dc IVF * 5. Hypertension: fairly Controlled. Carvedilol, valsartan and furosemide. 6. Hypothyroidism: On Synthroid 75 mg daily 7. Gastroparesis: On Haldol 8. Diastolic heart failure: EF of 60%. On Lasix. 9. Constipation: * On Movantik at home for opioid-induced constipation. * on senokot * 10. Chronic pain syndrome: on methadone, morphine, hydrocodone/acetaminophen and Lyrica. DVT prophylaxis: lovenox Disposition: * awaiting placement. * Insurance refused precert. * Waiting to do peer to peer with insurance physician. * Insurance physician to call in 24-48 hours. Code Visit Inpatient E&M: 62169 [facility] L3
--- NOTE | 2018-08-22 16:26 | NURSING ---
Dr. Subramanian states that peer to peer review was accepted and that pt will be able to go to ECF. Dr. Subramanian states that she will discharge pt first thing tomorrow morning. [facility] admissions called- Yessy notified of plan and verbalized understanding. States pt will have 24 hrs to get there once receive approval. Dr. Subramanian notified
[2018-08-22 17:01] LABS: Bedside Glucose 344 mg/dL (70-110)
[2018-08-22 18:11] LABS: Bedside Glucose 386 mg/dL (70-110)
[2018-08-22] MEDS: Atorvastatin Calcium 20 MG Tablet PO (22:42)
[2018-08-22] MEDS: Azithromycin 250 MG Tablet 500 MG PO (22:43)
[2018-08-22] MEDS: Pramipexole Di-HCl 0.5 MG Tablet PO (22:43)
[2018-08-22 22:56] LABS: Bedside Glucose 357 mg/dL (70-110)
[2018-08-23] VITALS (7 sets, daily range): BP systolic 134–147; BP diastolic 63–65; PULSE 77–88; RESP 18–21; TEMP 36.3; O2SAT 94–98
[2018-08-23] MEDS: Benzonatate 100 MG Capsule 200 MG PO (00:05)
[2018-08-23] MEDS: Acetaminophen 325 MG Tablet 650 MG PO ×3 (00:06→08:31)
[2018-08-23] MEDS: Ipratropium/Albuterol Sulfate 3 ML AMPUL.NEB INHALATION ×3 (03:35→10:40)
[2018-08-23] MEDS: BENZOCAINE/MENTHOL 1 LOZENGE MUCOUS MEM ×3 (04:12→10:31)
[2018-08-23] MEDS: Levothyroxine 75 MCG Tablet PO (05:55)
[2018-08-23] MEDS: Haloperidol 5 MG Tablet 1.25 MG PO (05:55)
[2018-08-23] MEDS: Insulin Lispro 100 UNIT/ML INSULN.PEN SQ (06:55)
[2018-08-23 07:10] LABS: Bedside Glucose 167 mg/dL (70-110)
[2018-08-23] MEDS: Enoxaparin 40 MG/0.4 ML Syringe SC (07:52)
[2018-08-23] MEDS: guaiFENesin 1,200 MG Tablet 1200 MG PO (07:54)
[2018-08-23] MEDS: Losartan Potassium 25 MG Tablet PO (07:55)
[2018-08-23] MEDS: Carvedilol 3.125 MG TABLET PO (07:55)
[2018-08-23] MEDS: Montelukast 10 MG Tablet PO (07:55)
[2018-08-23] MEDS: lamoTRIgine 100 MG Tablet PO (07:56)
[2018-08-23] MEDS: Allopurinol 100 MG Tablet PO (07:56)
[2018-08-23] MEDS: Aspirin 81 MG TAB.CHEW PO (07:56)
[2018-08-23] MEDS: predniSONE 20 MG Tablet 40 MG PO (07:56)
[2018-08-23] MEDS: Furosemide 40 MG Tablet PO (07:56)
[2018-08-23] MEDS: Nystatin Powder 15gm Bottle 1 APPLIC TOPICAL (07:57)
[2018-08-23] MEDS: Pregabalin 75 MG Capsule 150 MG PO (08:00)
--- NOTE | 2018-08-23 09:17 | PCM.TXEXTCAR ---
- Diet 08/19/18 00:50 Diet: Cardiac/Low Cholesterol Food consistency:: Regular Liquid Consistency:: Regular/Thin - Routine Orders/Code Status Enema Type: Fleetz Enema Frequency: Daily PRN Suppository Type: Dulcolax 10mg Suppository Frequency: Daily PRN O2 Liters per Minute: 2 O2 Frequency: Continuous Keep PO Greater than or Equal to (%): 92 Code Status: Full Code - Therapies Weight Bearing: Weight bearing as tolerated Physical Therapy: Eval and Treat Occupational Therapy: Eval and Treat - Allergies/Procedures Done in Hospital Allergies/Adverse Reactions: Allergies ciprofloxacin [From Cipro] Allergy (Verified 08/18/18 21:06) Shortness of breath ciprofloxacin HCl [From Cipro] Allergy (Verified 08/18/18 21:06) Shortness of breath cyclobenzaprine [From Flexeril] Allergy (Verified 08/18/18 21:06) Rash cyclobenzaprine HCl [From Flexeril] Allergy (Verified 08/18/18 21:06) Rash ketorolac tromethamine [From Toradol] Allergy (Verified 08/18/18 21:06) Chest tightness sulfamethoxazole [From Bactrim] Allergy (Verified 08/18/18 21:06) Itching trimethoprim [From Bactrim] Allergy (Verified 08/18/18 21:06) Itching metformin Adverse Reaction (Verified 08/18/18 21:06) Other headache valacyclovir HCl [From Valtrex] Adverse Reaction (Verified 08/18/18 21:06) Other Procedures: None - Type of Care/Length of Stay Estimated LOS: Convalescent Care Less Than 30 days Type of Care Needed: Skilled Rehab Potential: Fair Prognosis: Fair - Additional Orders/Day of Discharge Additional Orders: TRESIBA INSULIN DECREASED TO 100iu DAILY FROM HOME DOSE OF 200IU DAILY O/A OF BLOOD SUGARS IN HOSPITAL. PLS MONITOR BLOOD SUGARS ACHS; PCP AND LONG-TERM DOCTOR TO DECIDE TO ADJUST INSULIN DOSE NEEDED. Day of Discharge: 08/23/18 - Dietary and Speech Recommendations Dietitian Recommendations/Changes: Rec liberalize diet to Regular until po intake improves, then rec diet change to 1800 brain Cardiac diet for long-term use d/t pmhx. Rec continue ONS medpass d/t hx poor po intake - Follow Up Care Primary Care Physician: Devan Parks MD [Primary Care Provider] - Please follow up with your Primary Care Physician in: ONE WEEK
--- NOTE | 2018-08-23 09:20 | TREXTCAR_ITS ---
- Diet 08/19/18 00:50 Diet: Cardiac/Low Cholesterol Food consistency:: Regular Liquid Consistency:: Regular/Thin - Routine Orders/Code Status Enema Type: Fleetz Enema Frequency: Daily PRN Suppository Type: Dulcolax 10mg Suppository Frequency: Daily PRN O2 Liters per Minute: 2 O2 Frequency: Continuous Keep PO Greater than or Equal to (%): 92 Code Status: Full Code - Therapies Weight Bearing: Weight bearing as tolerated Physical Therapy: Eval and Treat Occupational Therapy: Eval and Treat - Allergies/Procedures Done in Hospital Allergies/Adverse Reactions: Allergies ciprofloxacin [From Cipro] Allergy (Verified 08/18/18 21:06) Shortness of breath ciprofloxacin HCl [From Cipro] Allergy (Verified 08/18/18 21:06) Shortness of breath cyclobenzaprine [From Flexeril] Allergy (Verified 08/18/18 21:06) Rash cyclobenzaprine HCl [From Flexeril] Allergy (Verified 08/18/18 21:06) Rash ketorolac tromethamine [From Toradol] Allergy (Verified 08/18/18 21:06) Chest tightness sulfamethoxazole [From Bactrim] Allergy (Verified 08/18/18 21:06) Itching trimethoprim [From Bactrim] Allergy (Verified 08/18/18 21:06) Itching metformin Adverse Reaction (Verified 08/18/18 21:06) Other headache valacyclovir HCl [From Valtrex] Adverse Reaction (Verified 08/18/18 21:06) Other Procedures: None - Type of Care/Length of Stay Estimated LOS: Convalescent Care Less Than 30 days Type of Care Needed: Skilled Rehab Potential: Fair Prognosis: Fair - Additional Orders/Day of Discharge Additional Orders: TRESIBA INSULIN DECREASED TO 100iu DAILY FROM HOME DOSE OF 200IU DAILY O/A OF BLOOD SUGARS IN HOSPITAL. PLS MONITOR BLOOD SUGARS ACHS; PCP AND PRISON DOCTOR TO DECIDE TO ADJUST INSULIN DOSE NEEDED. Day of Discharge: 08/23/18 - Dietary and Speech Recommendations Dietitian Recommendations/Changes: Rec liberalize diet to Regular until po intake improves, then rec diet change to 1800 brain Cardiac diet for nursing home use d/t pmhx. Rec continue ONS medpass d/t hx poor po intake - Follow Up Care Primary Care Physician: Devan Parks MD [Primary Care Provider] - Please follow up with your Primary Care Physician in: ONE WEEK
--- NOTE | 2018-08-23 09:20 | DS.PCM_ITS ---
Discharge Date and Diagnosis Date of Admission: 08/18/18 Date of Discharge: 08/23/18 - Primary Discharge Diagnosis Active and Suspected Problems (Last Reviewed 08/19/18 @ 04:36 by Jacques Santos MD) Community acquired pneumonia (Acute) - Secondary Discharge Diagnosis Chronic Problems (Last Reviewed 08/19/18 @ 04:36 by Jacques Santos MD) Congestive heart failure (Chronic) Type 2 diabetes mellitus (Chronic) 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) Diabetic gastroparesis (Chronic) Weakness of both lower extremities (Chronic) GERD (gastroesophageal reflux disease) (Chronic) Seizure disorder (Chronic) Chronic anticoagulation (Chronic) Paroxysmal atrial fibrillation (Chronic) Chronic pain syndrome (Chronic) DM2 (diabetes mellitus, type 2) (Chronic) Takotsubo cardiomyopathy (Chronic) Iron deficiency anemia (Chronic) Diverticulitis (Chronic) Depression (Chronic) Morbid obesity with BMI of 40.0-44.9, adult (Chronic) HLD (hyperlipidemia) (Chronic) Benign essential HTN (Chronic) Hospital Course and Treatment Imaging Results: Diagnostic Data Chest X-Ray 08/18/18 21:37 IMPRESSION: Bilateral lower lobe infiltrates greater on the right Electronically Signed: Ray Joy MD at 22:05 EST , Service support , Operations: None, - - EGD Summary of Care Provided: The patient is a 62 year old F with a PMH of paroxysmal Afib, obesity, diabetes mellitus, HFpEF (EF of 60%), hypertension and hyperlipidemia. She was admitted with a 3 day history of progessively worsening of shortness of breath. She had associated nausea, vomiting, malaise, vomiting, and cough productive of clear sputum. SOB worsened with exertion and her oxygen saturation was 88% in the Ed. CXR showed bilateral lower lobe infiltrates, with right greater than left. She was admitted and managed for acute hypoxic respiratory failure due to community acquired pneumonia. She was started on IV ceftriaxone,azithromycin and breathing treatments. Respiratory panel detected Human metapneumovirus. IV Solu-Medrol was added on to help with her breathing. Patient improved but still remains slightly short of breath. Oxygen saturation with ambulation dropped to 83% therefore she qualified for home oxygen. Patient was skilled to retirement for rehab. However initially insurance refused retirement admission. Peer to peer was conducted by hospitalist with insurance physician and insurance approved retirement stay. Of note, patient said she was on Tresiba 200IU at [facility] due to poorly controlled sugars. On admission, her blood sugar was found to be ~ 160s, and so Tresiba was held and she was started on ,lantus 10Iu. However, blood sugars remained very poorly controlled, with sugars being in 300s. A1C checked was .10. Pateint was therefore restarted on Tresiba, but dose was decreased to 100Iu qam. She is to have her blood glucose checked ACHS in the SNF and PCP and SNF doctor to adjust insulin dose as needed. Patient seen and examined prior to discharge. Still complained of feeling weak but shortness of breath had improved. She was on 2 L of oxygen. She denied any fever or chills, any chest pain, any palpitations, any cough, any abdominal pain, any diarrhea vomiting. 12 point review of systems otherwise negative. Labs and vitals reviewed. Home medications reviewed and reconciled. On examination Vitals: Vital Signs Height 5 ft 6 in Weight: 270 lb Weight in Pounds 270.0 lbs Pulse Ox 98 Temperature 97.3 F Pulse Rate 81 Respiratory Rate 18 Blood Pressure 134/63 Blood Pressure Position Supine General: Alert, Oriented x3, Cooperative, still weak and lethargic HEENT: Atraumatic, PERRLA, EOMI, Normocephalic Oral: Dry Mucosa Neck: Supple, No JVD, Negative Carotid Bruits Lungs: mild wheezing in all lung davlaos bilaterally Cardiovascular: Regular rate, Regular Rhythm, Normal S1, Normal S2, No murmurs Abdomen: Bowel Sounds Present, Soft, Non Tender, Non-Distended, No Hepato- splenomegaly Extremities: No clubbing, No cyanosis, No edema, Capillary Refill Less than 3 Seconds Skin: No rashes, No breakdown Musculoskeletal: No Tenderness to Palpation of Joints or Extremities Lymphatic: No Cervical, Supraclavicular, or Inguinal Adenopathy Neurological: Cranial nerves II-XII grossly intact, Neuro grossly intact, Motor Exam 5/5 strength throughout Psych/Mental Status: Normal Affect, Appropriate, Alert and oriented to time, place, person, mood and affect Plan as detailed above. She was discharged with a script for PO prednisone and PO azithromycin. She is to follow up with her PCP. - Physical Exam Vital Signs Temp Pulse Resp BP Pulse Ox 97.3 F L 77 20 H 134/63 H 98 08/23/18 07:49 08/23/18 07:49 08/23/18 07:49 08/23/18 07:49 08/23/18 08:07 Oxygen Flow Rate (L/min) 2 Oxygen Delivery Method Nasal Cannula Weight: 270 lb Body Mass Index (BMI) 43.5 Finger Stick Blood Glucose 279 Intake and Output for Last 24 Hours 08/21/18 08/22/18 08/23/18 23:59 23:59 23:59 Intake Total 2510 / 2510 1300 / 1300 600 / 600 Output Total 200 / 200 1200 / 1200 800 / 800 Balance 2310 / 2310 100 / 100 -200 / -200 Microbiology Past 72 Hours 08/19/18 01:33 Blood Culture - Preliminary Blood Culture (Wb) - Anticubital Right No growth in 48 hours. Laboratory Tests Past 24 Hrs 08/22/18 08/22/18 08/22/18 12:05 14:25 18:15 Hemoglobin A1c Troponin I < 0.015 < 0.015 < 0.015 08/23/18 06:53 Hemoglobin A1c Pending Troponin I POC Glucose 08/23/18 08/22/18 08/22/18 06:56 22:41 18:04 POC Glucose 167 H 357 H 386 H 08/22/18 08/22/18 16:48 11:17 POC Glucose 344 H 313 H Discharge Diet: Low fat/ Low Cholesterol Home Medications: Medications to take at Discharge Aspirin [Aspirin, Baby] 81 mg PO DAILY 05/07/16 Montelukast [Singulair] 10 mg PO DAILY 05/07/16 Ropinirole HCl [Requip] 1 mg PO QHS 05/07/16 Pregabalin [Lyrica] 150 mg PO BID 02/25/17 Hydrocodone/Acetaminophen [Hydrocodone-Acetamin 5-325 mg] 1 ea PO Q6H PRN PRN 06/01/17 allopurinol 100 mg tablet 100 mg PO QDAY 03/24/18 lamotrigine 100 mg tablet 100 mg PO BID 03/24/18 levothyroxine 75 mcg capsule 75 mcg PO QDAY 03/24/18 simvastatin 40 mg tablet 40 mg PO QPM 03/24/18 Methadone HCl 5 mg PO DAILY 04/06/18 Methadone HCl 10 mg PO QHS 04/06/18 Morphine [Morphine IR] 15 mg PO BID 05/23/18 Ondansetron [Zofran] 8 mg PO Q6H PRN PRN 05/23/18 furosemide 40 mg tablet 40 mg PO DAILY 06/25/18 haloperidol 0.5 mg tablet 1 mg PO TID tab 06/26/18 valsartan 80 mg tablet 80 mg PO DAILY 06/26/18 potassium chloride ER 20 mEq tablet,extended release(part/cryst) 20 meq PO DAILY #90 tab 07/09/18 carvedilol 3.125 mg tablet 3.125 mg PO BID #180 tab 08/14/18 Benzonatate [Tessalon Perle] 200 mg PO TID PRN PRN #20 cap 08/17/18 proMETHazine tablet [Phenergan tablet] 25 mg PO Q6H PRN PRN #10 tab 08/17/18 Insulin Regular, Human [Humulin R U-500 Kwikpen] 50 unit SQ BID 08/19/18 Naloxegol Oxalate [Movantik] 12.5 mg PO DAILY 08/19/18 Azithromycin 500 mg PO DAILY #3 tablet 08/23/18 Insulin Degludec [Tresiba Flextouch U-200] 100 unit SQ DAILY #5 insuln.pen 08/23/18 predniSONE tablet 40 mg PO DAILY 5 Days #10 tablet 08/23/18 Following Prescrptions Were Given to Patient: Azithromycin 500 mg PO DAILY #3 tablet Insulin Degludec [Tresiba Flextouch U-200] 100 unit SQ DAILY #5 insuln.pen predniSONE tablet 40 mg PO DAILY 5 Days #10 tablet Primary Care Physician: Devan Parks MD [Primary Care Provider] - Please follow up with your Primary Care Physician in: ONE WEEK Disposition: Residential facility Minutes spent on discharge:: 40 Patient Condition:: Stable Medical Necessity - Tobacco Use Smoking Status: Never smoker Meaningful Use Info Meaningful Use Diagnoses (Choose all that apply): None applicable Code Visit Inpatient E&M: 31088 Disch Hosp
[2018-08-23 09:21] LABS: Hemoglobin A1c 10.4 % (4.2-6.3)
--- NOTE | 2018-08-23 10:24 | NURSING ---
CALLED REPORT TO TONY AT [facility] AT THIS TIME. NOTIFIED OF PT PAINTER DRUM TIME OF 1130.
== END 2018-08-23 11:35 | disposition skilled nursing facility (03) | DRG 193 ==
LOC: ED 23:15 → MS2 08-19 00:03
PROVIDERS: Admitting Provider Hospitalist; Emergency Provider Emergency Medicine; Family Provider Family Medicine; PCP Family Medicine; Referring Provider Hospitalist; Visit Provider Student in an Organized Health Care Education/Training Program
DX: J18.9 Pneumonia, unspecified organism (principal); J96.01 Acute respiratory failure with hypoxia; Z68.41 Body mass index [BMI] 40.0-44.9, adult; E87.1 Hypo-osmolality and hyponatremia; I50.30 Unspecified diastolic (congestive) heart failure; E78.5 Hyperlipidemia, unspecified; E66.01 Morbid (severe) obesity due to excess calories; I11.0 Hypertensive heart disease with heart failure; E11.43 Type 2 diabetes mellitus with diabetic autonomic (poly)neuropathy; K31.84 Gastroparesis; K59.03 Drug induced constipation; E03.9 Hypothyroidism, unspecified; T40.2X5A Adverse effect of other opioids, initial encounter; G89.4 Chronic pain syndrome; B97.81 Human metapneumovirus as the cause of diseases classified elsewhere; J06.9 Acute upper respiratory infection, unspecified; Z79.899 Other long term (current) drug therapy; Z79.891 Long term (current) use of opiate analgesic; Z79.4 Long term (current) use of insulin; D50.9 Iron deficiency anemia, unspecified; K21.9 Gastro-esophageal reflux disease without esophagitis; G40.909 Epilepsy, unspecified, not intractable, without status epilepticus; F32.9 Major depressive disorder, single episode, unspecified; J40 Bronchitis, not specified as acute or chronic; J98.01 Acute bronchospasm; E78.00 Pure hypercholesterolemia, unspecified; Z79.82 Long term (current) use of aspirin
CPT/HCPCS: 36415; 71045; 71046; 80048; 82962; 83036; 83880; 84484; 85025; 87040; 87449; 87633; 93005; 94640; 94667; 94668; 97110; 97116; 97162; 97166; 97530; 97535; 97802; 99282; 99283; J7030; J7040; J7050; A4216; J2405

== ENCOUNTER 2018-08-31 18:39 | Inpatient (IN) | payer MEDICARE, SELFPAY ==
[2018-08-19 01:14] VITALS: BMI 43.5
[2018-08-31] VITALS (19 sets, daily range): BP systolic 84–130; BP diastolic 37–94; PULSE 59–104; RESP 12–19; TEMP 35.8–36.7; O2SAT 94–100; BMI 44.9; BMI 44.6; BMI 44.7
--- NOTE | 2018-08-31 18:54 | EKG12_ITS ---
Test Reason : Blood Pressure : / mmHG Vent. Rate : 071 BPM Atrial Rate : 071 BPM P-R Int : 166 ms QRS Dur : 096 ms QT Int : 398 ms P-R-T Axes : 025 -35 061 degrees QTc Int : 432 ms Normal sinus rhythm Left axis deviation Low voltage QRS Abnormal ECG Confirmed by ABIMAEL CURRY, CAROLE ([id number]), assignment editor MAIKEL MULLEN ([id number] on 09/02/2018 5:08:24 PM Referred By: Jacques Santos Confirmed By:CAROLE VARGHESE MD
--- NOTE | 2018-08-31 19:14 | RAD_ITS ---
STUDY: X-RAY CHEST REASON FOR EXAM: Female, 62 years old. Weakness TECHNIQUE: Frontal view of the chest COMPARISON: 08/18/2018 FINDINGS: The lungs are clear. There are no pleural effusions. There is no pneumothorax. The heart is normal in size. The visualized osseous structures are within normal limits. RAD/Chest 1 View (Portable) IMPRESSION: No acute thoracic pathology. Electronically Signed: Devan Wang, at 19:46 EST Tel , Service support ,
[2018-08-31 19:17] LABS: Absolute Neutrophil Count 14.9 X10^3/uL (2.0-7.7); Basophil# 0.03 X10^3/uL; Basophil% 0.1 % (0-1); Eosinophil# 0.26 X10^3/uL; Eosinophils% 1.2 % (0-5); Hematocrit 36.9 % (37-47); Hemoglobin 11.7 g/dl (12.0-15.0); Lymphocyte % 16.6 % (19-41); Mean Corp Hgb Conc 31.7 g/gl (32-36); Mean Corpuscular Hgb 26.3 pg (27.0-32.0); Mean Corpuscular Volume 82.9 fL (81-99); Mean Platelet Vol. 10.4 fl (6.2-12.0); Monocyte# 2.31 X10^3/uL; Neutrophil # 14.88 X10^3/uL (2.7-7.7); Neutrophil % 70.7 % (47-70); Platelet Count 319 K/mm3 (150-450); RBC Distribution Width CV 16.7 % (11.6-14.6); RBC Distribution Width SD 49.4 fl (35.1-43.9); Red Blood Count 4.45 M/mm3 (4.2-5.4); White Blood Count 21.1 K/mm3 (4.4-11.0)
[2018-08-31 19:21] LABS: Differential Indicated SCAN CRITERIA MET; POSITIVE COUNT NO; POSITIVE DIFFERENTIAL YES; POSITIVE MORPHOLOGY NO
[2018-08-31 19:45] LABS: Differential Comment SCANNED; Platelet Estimate ADEQUATE (ADEQ)
[2018-08-31 19:49] LABS: Bacteria 0 SEEN /hpf (None Seen); Mucous, Urine 0 SEEN /hpf (<or=2+); Red Blood Cells-Urine 0 SEEN /hpf (0-5); Squamous Epithelial Cells - UA 0 SEEN /hpf (5-10)
[2018-08-31 19:50] LABS: Color, Urine Yellow (Yellow); Glucose, Dipstick Normal (Normal); Ketone-Dipstick Negative (Negative); Leukocyte Esterase-Dipstick 500 /ul (Negative); Nitrite-Dipstick Negative (Negative); Occult Blood-Urine 150 /ul (Negative); Protein-Dipstick 30 mg/dl (Negative); Specific Gravity, Urine 1.015 (1.002-1.030); Urine Bilirubin Dipstick Negative (Negative); Urine Clarity Cloudy (Clear); Urine Urobilinogen Normal (Normal)
[2018-08-31 19:53] LABS: Anion Gap 8 (5-15); BUN 66 mg/dL (7-18); BUN/Creat Ratio 16.5 RATIO (10-20); Calcium,Total 9.1 mg/dL (8.5-10.1); Chloride 93 mmol/L (98-107); Creatinine, Serum 3.99 mg/dL (0.55-1.02); EST Glomerular Filtration Rate 12 mL/min (>60); Est Glom Filt Rate - Afr Amer 15 mL/min (>60); Estimated Creatinine Clearance 13.51 ml/min; Glucose 80 mg/dL (74-106); Magnesium 3.3 mg/dL (1.6-2.6); Potassium 6.2 mmol/L (3.5-5.1); Sodium Level 130 mmol/L (136-145)
[2018-08-31 20:01] LABS: White Blood Cells >100 SEEN /hpf (0-5)
[2018-08-31] MEDS: 0.9% Normal Saline 1,000 ML 999 ML IV ×4 (20:20→21:13)
[2018-08-31] MEDS: Calcium Gluconate 1 GM/10 ML Vial IV (20:20)
[2018-08-31] MEDS: Sodium Bicarbonate 8.4% 50 ML Syringe 50 MEQ IV (20:23)
--- NOTE | 2018-08-31 20:27 | ED.RN ---
DR. BATISTA NOTIFIED OF PT POTASSIUM.
--- NOTE | 2018-08-31 20:28 | HP.PCM_ITS ---
Problem List (1) Hyperkalemia Status: Acute (2) Cystitis Status: Acute (3) SANGEETHA (acute kidney injury) Status: Acute (4) Weakness of both lower extremities Status: Chronic (5) Septic shock Status: Acute History of Present Illness Date of Admission: 08/31/18 Chief Complaint: abnormal labwork The patient is a 62 year old F with a significant history of hypertension; chronic pain; fibromyalgia; weakness of both lower extremities; type 2 diabetes; Takotsubo cardiomyopathy who was [facility] from [facility] because of a potassium level of 7.0. At the emergency department her potassium level was found to be 6.2. Also patient reports that for the last 3 days she is unable to move. Associated with her symptoms is tiredness, weakness, and poor appetite. She reports regular bowel movement. Her last bowel movement was 2 days ago. At emergency department her urinalysis was abnormal. Her systolic blood pressure was in the 90s to lower 100s and she received IV fluids per septic shock protocol. Her lactic acid was not remarkable. Her magnesium level was 3.3. Her white count was 21.1K. At the emergency department patient received sodium bicarbonate; albuterol inhaler; and calcium gluconate. Patient was admitted at our hospital on 08/18/2018 for committee acquired pneumonia. She was discharged on 08/23/2018. She was discharged to residential facility on oxygen and for rehab. Past Medical History Past Medical History (Chronic Problems): Chronic Problems (Last Reviewed 08/31/18 @ 23:19 by Jacques Santos MD) Congestive heart failure (Chronic) Type 2 diabetes mellitus (Chronic) 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) Diabetic gastroparesis (Chronic) Weakness of both lower extremities (Chronic) GERD (gastroesophageal reflux disease) (Chronic) Seizure disorder (Chronic) Chronic anticoagulation (Chronic) Paroxysmal atrial fibrillation (Chronic) Chronic pain syndrome (Chronic) DM2 (diabetes mellitus, type 2) (Chronic) Takotsubo cardiomyopathy (Chronic) Iron deficiency anemia (Chronic) Diverticulitis (Chronic) Depression (Chronic) Morbid obesity with BMI of 40.0-44.9, adult (Chronic) HLD (hyperlipidemia) (Chronic) Benign essential HTN (Chronic) Medical History: Medical History (Last Reviewed 08/31/18 @ 23:19 by Jacques Santos MD) Congestive heart failure (Chronic) I50.9 Type 2 diabetes mellitus (Chronic) E11.9 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) I25.2 Diabetic gastroparesis (Chronic) E11.43, K31.84 SOB (shortness of breath) (Resolved) R06.02 Acute bronchitis (Inactive) J20.9 Weakness of both lower extremities (Chronic) R29.898 GERD (gastroesophageal reflux disease) (Chronic) K21.9 Seizure disorder (Chronic) G40.909 Chronic anticoagulation (Chronic) Z79.01 Paroxysmal atrial fibrillation (Chronic) I48.0 Chronic pain syndrome (Chronic) G89.4 DM2 (diabetes mellitus, type 2) (Chronic) E11.9 Takotsubo cardiomyopathy (Chronic) I51.81 Iron deficiency anemia (Chronic) D50.9 Diverticulitis (Chronic) K57.92 Sepsis (Resolved) A41.9 Depression (Chronic) F32.9 Morbid obesity with BMI of 40.0-44.9, adult (Chronic) E66.01, Z68.41 HLD (hyperlipidemia) (Chronic) E78.5 Benign essential HTN (Chronic) I10 CVA (cerebral vascular accident) I63.9 Diverticulitis K57.92 2 para 2 Z78.9 Diabetic gastroparesis E11.43, K31.84 Fibromyalgia M79.7 QIAN (obstructive sleep apnea) G47.33 Restless leg syndrome G25.81 Fibromyalgia (Inactive) M79.7 2 para 2 Z78.9 History of CVA (cerebrovascular accident) (Inactive) Z86.73 Restless leg (Inactive) Allergies ciprofloxacin [From Cipro] Allergy (Verified 08/31/18 18:46) Shortness of breath ciprofloxacin HCl [From Cipro] Allergy (Verified 08/31/18 18:46) Shortness of breath cyclobenzaprine [From Flexeril] Allergy (Verified 08/31/18 18:46) Rash cyclobenzaprine HCl [From Flexeril] Allergy (Verified 08/31/18 18:46) Rash ketorolac tromethamine [From Toradol] Allergy (Verified 08/31/18 18:46) Chest tightness sulfamethoxazole [From Bactrim] Allergy (Verified 08/31/18 18:46) Itching trimethoprim [From Bactrim] Allergy (Verified 08/31/18 18:46) Itching metformin Adverse Reaction (Verified 08/31/18 18:46) Other headache valacyclovir HCl [From Valtrex] Adverse Reaction (Verified 08/31/18 18:46) Other Home Medications: Ambulatory Orders Medication Instructions Recorded Aspirin [Aspirin, Baby] 81 mg PO DAILY 05/07/16 Montelukast [Singulair] 10 mg PO DAILY 05/07/16 Ropinirole HCl [Requip] 1 mg PO QHS 05/07/16 Pregabalin [Lyrica] 150 mg PO BID 02/25/17 Hydrocodone/Acetaminophen 1 ea PO Q6H PRN PRN 06/01/17 [Hydrocodone-Acetamin 5-325 mg] allopurinol 100 mg tablet 100 mg PO QDAY 03/24/18 lamotrigine 100 mg tablet 100 mg PO BID 03/24/18 levothyroxine 75 mcg capsule 75 mcg PO QDAY 03/24/18 simvastatin 40 mg tablet 40 mg PO QPM 03/24/18 Methadone HCl 5 mg PO DAILY 04/06/18 Methadone HCl 10 mg PO QHS 04/06/18 Morphine [Morphine IR] 15 mg PO BID 05/23/18 Ondansetron [Zofran] 8 mg PO Q6H PRN PRN 05/23/18 furosemide 40 mg tablet 40 mg PO DAILY 06/25/18 valsartan 80 mg tablet 80 mg PO DAILY 06/26/18 potassium chloride ER 20 mEq 20 meq PO DAILY #90 tab 07/09/18 tablet,extended release(part/cryst) carvedilol 3.125 mg tablet 3.125 mg PO BID #180 tab 08/14/18 Benzonatate [Tessalon Perle] 200 mg PO TID PRN PRN #20 cap 08/17/18 proMETHazine tablet [Phenergan 25 mg PO Q6H PRN PRN #10 tab 08/17/18 tablet] Naloxegol Oxalate [Movantik] 12.5 mg PO QHS 08/19/18 Insulin Degludec [Tresiba 150 unit SQ DAILY 08/31/18 Flextouch U-200] Insulin Regular, Human [Humulin R] 20 unit SQ TID 08/31/18 Nystatin Powder [Mycostatin Powder] 1 applic TOPICAL TID 08/31/18 Surgical History: Surgical History (Last Reviewed 08/31/18 @ 23:19 by Jacques Santos MD) History of cholecystectomy Z90.49 History of knee surgery Z98.890 Surgical History: appendectomy, cholecystectomy Lives: [facility] Smoking Status: Never smoker Alcohol: None - *Family History Paternal Family History: Family History (Last Reviewed 08/31/18 @ 23:19 by Jacques Santos MD) Mother Myocardial infarction Father Congestive heart failure Other Diabetes Heart disease History Items: Heart Disease, - - Bone cancer Maternal Family History: Family History (Last Reviewed 08/31/18 @ 23:19 by Jacques Santos MD) Mother Myocardial infarction Father Congestive heart failure Other Diabetes Heart disease History Items: COPD, Diabetes, Heart Disease, - - Smoker Review of Systems Constitutional: Reports: Chills, Weakness, Fatigue HEENT: Denies: Head Aches, Sinus Congestion, Sinus Drainage Cardiovascular: Denies: Chest Pain, Palpitations Respiratory: Denies: Cough, Shortness of breath at rest, Sputum production Gastrointestinal: Denies: Abdominal Pain, Nausea, Vomiting Genitourinary: Denies: Dysuria Musculoskeletal: Denies: Joint Pain, Joint Tenderness Skin: Denies: Rash, Wounds Neurological: Denies: Numbness, Tingling, Focal weakness Psychiatric: Denies: Anxiety, Depression, Homicidal Ideations, Suicidal Ideations Hematologic/ Lymphatic: Denies: Easy Bruising, Easy Bleeding VTE Information - Inpt Only VTE Present on Admission: No VTE Mechan Device Prophylaxis: None VTE Pharm Prophylaxis ordered?: Yes Patient Problems: Active and Suspected Problems (Last Reviewed 08/31/18 @ 23:19 by Jacques Santos MD) Hyperkalemia (Acute) Cystitis (Acute) SANGEETHA (acute kidney injury) (Acute) Septic shock (Acute) - Physical Exam General: Oriented x3, Lethargic HEENT: Atraumatic, PERRLA, EOMI, Normocephalic Neck: Supple, No JVD, Negative Carotid Bruits Lungs: Clear to auscultation, Normal air movement Cardiovascular: Regular rate, No murmurs Abdomen: Bowel Sounds Present, Soft, Non Tender, - - Right groin with redness. Extremities: No edema, Capillary Refill Less than 3 Seconds Skin: No rashes, No breakdown Musculoskeletal: No Tenderness to Palpation of Joints or Extremities Neurological: Neuro grossly intact Psych/Mental Status: Normal Affect, Appropriate Vital Signs Temp Pulse Resp BP Pulse Ox 98.0 F 70 18 105/57 L 94 08/31/18 18:40 08/31/18 20:25 08/31/18 20:25 08/31/18 19:21 08/31/18 19:21 Oxygen Flow Rate (L/min) 4 Oxygen Delivery Method Nasal Cannula Weight: 126.1 kg Body Mass Index (BMI) 44.9 Finger Stick Blood Glucose 279 Laboratory Tests Past 24 Hrs 08/31/18 08/31/18 08/31/18 18:50 18:50 19:20 WBC 21.1 H RBC 4.45 Hgb 11.7 L Hct 36.9 L MCV 82.9 MCH 26.3 L MCHC 31.7 L RDW 16.7 H RDW Differential 49.4 H Plt Count 319 MPV 10.4 Immature Gran % (Auto) 0.400 Neut % (Auto) 70.7 H Lymph % (Auto) 16.6 L [place] % (Auto) 11.0 H Eos % (Auto) 1.2 Baso % (Auto) 0.1 Absolute Neuts (auto) 14.9 H Absolute Lymphs (auto) 3.50 Total Counted Not Reportable Differential Comment SCANNED Diff Path Review May foll Platelet Estimate ADEQUATE Sodium Cancelled 130 L Potassium Cancelled 6.2 H* Chloride Cancelled 93 L Carbon Dioxide Cancelled 29.0 Anion Gap Cancelled 8 BUN Cancelled 66 H Creatinine Cancelled 3.99 H Estim Creat Clear Calc Cancelled 13.51 Est GFR (MDRD) Af Amer Cancelled 15 L Est GFR (MDRD) Non-Af Cancelled 12 L BUN/Creatinine Ratio Cancelled 16.5 Glucose Cancelled 80 Lactic Acid Calcium Cancelled 9.1 Magnesium Cancelled 3.3 H Urine Color Urine Clarity Urine pH Ur Specific [place] Urine Protein Urine Glucose (UA) Urine Ketones Urine Occult Blood Urine Nitrite Urine Bilirubin Urine Urobilinogen Ur Leukocyte Esterase Urine RBC Urine WBC Ur Squamous Epith Cells Urine Bacteria Urine Mucus 08/31/18 08/31/18 19:45 20:00 WBC RBC Hgb Hct MCV MCH MCHC RDW RDW Differential Plt Count MPV Immature Gran % (Auto) Neut % (Auto) Lymph % (Auto) [place] % (Auto) Eos % (Auto) Baso % (Auto) Absolute Neuts (auto) Absolute Lymphs (auto) Total Counted Differential Comment Diff Path Review Platelet Estimate Sodium Potassium Chloride Carbon Dioxide Anion Gap BUN Creatinine Estim Creat Clear Calc Est GFR (MDRD) Af Amer Est GFR (MDRD) Non-Af BUN/Creatinine Ratio Glucose Lactic Acid Pending Calcium Magnesium Urine Color Yellow Urine Clarity Cloudy Urine pH 6.0 Ur Specific [place] 1.015 Urine Protein 30 H Urine Glucose (UA) Normal Urine Ketones Negative Urine Occult Blood 150 H Urine Nitrite Negative Urine Bilirubin Negative Urine Urobilinogen Normal Ur Leukocyte Esterase 500 H Urine RBC 0 SEEN Urine WBC >100 SEEN Ur Squamous Epith Cells 0 SEEN Urine Bacteria 0 SEEN Urine Mucus 0 SEEN Assessment/Plan All Active Problems (Last Reviewed 08/31/18 @ 23:19 by Jacques Santos MD) Community acquired pneumonia (Resolved) Hyperkalemia (Acute) Cystitis (Acute) SANGEETHA (acute kidney injury) (Acute) Septic shock (Acute) SOB (shortness of breath) (Resolved) Sepsis (Resolved) Chest pain (Resolved) Community acquired pneumonia (Resolved) History of pulmonary embolus (PE) (Resolved) Hypotension (Resolved) Intractable vomiting with nausea (Resolved) Pulmonary embolism (Resolved) The patient is a 62 year old F with a significant history of hypertension; chronic pain; fibromyalgia; weakness of both lower extremities; type 2 diabetes; ischemic cardiomyopathy who was sent from [facility] because of a potassium level of 7.0; and found to have a potassium level of 6.2 at emergency department; abnormal urinalysis; low blood pressure; and leukocytosis consistent with a septic shock secondary to acute cystitis; and hyperkalemia. Septic shock secondary to acute cystitis ICU nurse called that patient was hypotensive with systolic blood pressure less than 87 after patient had received 30ml/kg bolus NSS at the ED.. We will start patient on levophed titrate to keep map to at least 65. If Levophed gets to 15mcg/min consider Vasopressin and steroids. Blood cultures x2 are pending; follow. Urine culture ordered. Received ceftriaxone 1 g at emergency department. We will optimize her antibiotics by giving her another gram of ceftriaxone. Thereafter will schedule patient for Ceftriaxone 2gm daily. Trend CBC and BMP. [place] Hugger because of chills Acute hyperkalemia Etiology could be from acute kidney failure secondary to intrinsic renal from sepsis. Other etiology could be from valsartan use and supplemental home potassium. Of note patient takes Lasix at home. Patient received bicarbonate; albuterol inhalation (only 2.5mg was given at ED); IV fluids and calcium gluconate at emergency department. Hold losartan because of hyperkalemia and hypertension. Hold home potassium supplementation. Lasix held because of hypotension. Kayexalate ordered. Miralax 2 hours after Kayexalate administration Repeat BMP 4 hours after Kayexalate SANGEETHA On admission her creatinine was 3.99. Her baseline creatinine is about 1.05. The BUN over creatinine is 16.5. Likely intrinsic renal from sepsis. Avoid nephrotoxic's. Treat sepsis Trend CBC. Weakness of bilateral lower extremities. Appears this is acute on chronic. PT and OT to work patient. Diabetes mellitus. On admission blood glucose was within goal. However nurse reported that her blood glucose went into the 30s was on the floor for which reason she was given D50. We will start patient on half normal saline with D5W. We will hold home insulin at this time. Accu-Chek q. ACHS. Review of old records shows that on previous admission her insulin regimen was initially reduced. However patient developed severe hyperglycemia requiring her insulin regimen to be increased. Accu-Chek per hypoglycemic protocol and then q. before meals at bedtime when blood glucose is stable. History of Takotsubo cardiomyopathy Coreg and Lasix held secondary to hypotension. Lisinopril held secondary to hypotension and hyperkalemia. Intertrigo Nystatin continued Hypothyroidism Synthroid continued Chronic migraine Lamictal continued Chronic pain/Fibromyalgia/Back Pain: Patient is on methadone scheduled; morphine scheduled and Hydrocodone/Acetaminophen prn. Nurse reported that patient is very drowsy. We will hold Methadone; morphine and hydrocodone/acetaminophen because of hypotension; drowsiness and difficulty in ambulation. Continue Home Naloxegol for constipation associated with narcotics. Tylenol as needed. Gout Allopurinol continued Neuropathy Lyrica continued Restless leg syndrome Requip continued Hyperlipidemia Statin continued DVT prophylaxis Subcutaneous Heparin. Code Visit Inpatient E&M: 46311 Init Hosp L3
--- NOTE | 2018-08-31 20:33 | ED.VISSUMM ---
- ER Visit Summary Date of Service: 08/31/18 Chief Complaint: Weakness History of Present Illness: The patient is a 62 F who complains of weakness. [facility] is [facility]. According to [facility] staff they checked laboratory studies and her potassium was 7. She states that she has been unable to walk for the past couple of days. She feels twitching. She denies any pain. She was admitted in July for bilateral pneumonia and completed her course of treatment for that. She is a non-smoker. Physical Examination: Vital signs reviewed. HEENT exam unremarkable. Heart is regular rate and rhythm. Lungs have rhonchorous breath sounds bilaterally. Abdomen is soft and nontender. Skin reveals no rashes. She has no peripheral edema. Her neurologic exam reveals diffuse weakness overall. She does have twitching intermittently. Test Results: EKG reveals a sinus rhythm with no ischemic changes. There may be slightly elevated T waves. White blood cell count is 21.1. Creatinine is 3.99. Her last creatinine was around 1. Urinalysis reveals greater than 100 white blood cells. Chest x-ray reveals no acute findings. Potassium 3.2. Sodium 130 Emergency Department Course and Treatment: Patient was given albuterol, calcium, sodium bicarb for the elevated potassium. I hydrated her with multiple liters of fluids. Although she does not technically meet sepsis criteria as she likely does have a sepsis component. She may also be dehydrated due to the elevated BUN and creatinine. Patient will be given IV Rocephin. She will be admitted to the hospital. Treatment Plan: [] Disposition: Admit Impression: UTI, AK I, hyperkalemia, severe sepsis This note was generated with [employer] dictation software. It may contain incorrect words, spelling, and punctuation that were not noted in review of the chart prior to signing ED Disposition - Plan for ED Patient: Chief Complaint: General Illness Referrals: Devan Parks MD [Primary Care Provider] -
[2018-08-31 20:34] LABS: Lactic Acid 0.7 mmol/L (0.4-2.0)
--- NOTE | 2018-08-31 20:37 | ED.DCSUM_ITS ---
- ER Visit Summary Date of Service: 08/31/18 Chief Complaint: Weakness History of Present Illness: The patient is a 62 F who complains of weakness. [facility]. According to [facility] staff they checked laboratory studies and her potassium was 7. She states that she has been unable to walk for the past couple of days. She feels twitching. She denies any pain. She was admitted in July for bilateral pneumonia and completed her course of treatment for that. She is a non-smoker. Physical Examination: Vital signs reviewed. HEENT exam unremarkable. Heart is regular rate and rhythm. Lungs have rhonchorous breath sounds bilaterally. Abdomen is soft and nontender. Skin reveals no rashes. She has no peripheral edema. Her neurologic exam reveals diffuse weakness overall. She does have twitching intermittently. Test Results: EKG reveals a sinus rhythm with no ischemic changes. There may be slightly elevated T waves. White blood cell count is 21.1. Creatinine is 3.99. Her last creatinine was around 1. Urinalysis reveals greater than 100 white blood cells. Chest x-ray reveals no acute findings. Potassium 3.2. Sodium 130 Emergency Department Course and Treatment: Patient was given albuterol, calcium, sodium bicarb for the elevated potassium. I hydrated her with multiple liters of fluids. Although she does not technically meet sepsis criteria as she likely does have a sepsis component. She may also be dehydrated due to the elevated BUN and creatinine. Patient will be given IV Rocephin. She will be admitted to the hospital. Treatment Plan: [] Disposition: Admit Impression: UTI, AK I, hyperkalemia, severe sepsis This note was generated with [employer] dictation software. It may contain incorrect words, spelling, and punctuation that were not noted in review of the chart prior to signing ED Disposition - Plan for ED Patient: Chief Complaint: General Illness Referrals: Devan Parks MD [Primary Care Provider] -
[2018-08-31] MEDS: Ceftriaxone 1 GM/50 ML BAG IV ×2 (20:46→23:43)
[2018-08-31 22:05] LABS: Bedside Glucose 37 mg/dL (70-110)
[2018-08-31] MEDS: Dextrose 50%-Water 25 GM/50 ML DISP.SYRIN IV (22:05)
[2018-08-31] MEDS: 0.9% NaCl Peripheral Flush Adult/Peds IV (22:05)
[2018-08-31 22:20] LABS: Bedside Glucose 137 mg/dL (70-110)
[2018-08-31] MEDS: Nystatin Powder 15gm Bottle 1 APPLIC TOPICAL (22:28)
[2018-08-31] MEDS: Heparin Injection (Vial) 5,000 UNIT/ML VIAL 5000 UNIT SC (22:29)
[2018-08-31] MEDS: lamoTRIgine 100 MG Tablet PO (22:33)
[2018-08-31] MEDS: Atorvastatin Calcium 20 MG Tablet PO (22:33)
[2018-08-31] MEDS: Pramipexole Di-HCl 0.5 MG Tablet PO (22:33)
[2018-08-31] MEDS: Sodium Polystyrene Sulfonate 15 GM/60 ML UDC 30 GM PO (22:53)
[2018-08-31] MEDS: Dext 5%-0.45% NS 1,000 ML 75 ML IV (22:55)
[2018-08-31 23:50] LABS: Bedside Glucose 103 mg/dL (70-110)
[2018-09-01] VITALS (54 sets, daily range): BP systolic 80–152; BP diastolic 38–113; PULSE 62–110; RESP 10–26; TEMP 36.5–37.9; O2SAT 94–100
[2018-09-01] MEDS: Polyethylene Glycol 3350 17 GM PACKET 34 GM PO (01:20)
[2018-09-01 02:16] LABS: Bedside Glucose 78 mg/dL (70-110)
[2018-09-01 03:41] LABS: Bedside Glucose 110 mg/dL (70-110)
[2018-09-01 04:02] LABS: Absolute Neutrophil Count 9.9 X10^3/uL (2.0-7.7); Basophil# 0.01 X10^3/uL; Basophil% 0.1 % (0-1); Eosinophil# 0.17 X10^3/uL; Eosinophils% 1.3 % (0-5); Hematocrit 33.1 % (37-47); Hemoglobin 10.1 g/dl (12.0-15.0); Mean Corp Hgb Conc 30.5 g/gl (32-36); Mean Corpuscular Hgb 25.6 pg (27.0-32.0); Mean Platelet Vol. 9.8 fl (6.2-12.0); Monocyte# 1.11 X10^3/uL; Monocyte% 8.2 % (0-10); Neutrophil # 9.93 X10^3/uL (2.7-7.7); Neutrophil % 73.2 % (47-70); Platelet Count 270 K/mm3 (150-450); RBC Distribution Width CV 16.5 % (11.6-14.6); RBC Distribution Width SD 50.8 fl (35.1-43.9); Red Blood Count 3.94 M/mm3 (4.2-5.4); White Blood Count 13.6 K/mm3 (4.4-11.0)
[2018-09-01 04:07] LABS: Anion Gap 8 (5-15); BUN 59 mg/dL (7-18); BUN/Creat Ratio 19.3 RATIO (10-20); Calcium,Total 8.1 mg/dL (8.5-10.1); Chloride 101 mmol/L (98-107); Creatinine, Serum 3.05 mg/dL (0.55-1.02); EST Glomerular Filtration Rate 16 mL/min (>60); Est Glom Filt Rate - Afr Amer 20 mL/min (>60); Estimated Creatinine Clearance 17.67 ml/min; Glucose 119 mg/dL (74-106); Potassium 5.5 mmol/L (3.5-5.1); Sodium Level 136 mmol/L (136-145)
[2018-09-01 04:10] LABS: POSITIVE COUNT NO; POSITIVE DIFFERENTIAL NO; POSITIVE MORPHOLOGY NO
[2018-09-01] MEDS: Nystatin Powder 15gm Bottle 1 APPLIC TOPICAL ×3 (05:37→20:47)
[2018-09-01] MEDS: Heparin Injection (Vial) 5,000 UNIT/ML VIAL 5000 UNIT SC ×3 (05:37→20:46)
[2018-09-01] MEDS: Dextrose 50%-Water 25 GM/50 ML DISP.SYRIN IV (06:45)
[2018-09-01] MEDS: 0.9% NaCl IVPB Med Flush (250 mL) 15 ML IV (06:59)
[2018-09-01] MEDS: 0.9% NaCl Peripheral Flush Adult/Peds IV (06:59)
--- NOTE | 2018-09-01 07:07 | PCM.CON.CC ---
Reason for Consult Date of Consultation: 09/01/18 Reason for Consultation: Septic shock History of Present Illness: The patient is a 62-year-old female, with a history as outlined below, who initially presented to the emergency department on August 31 from a longterm facility with generalized weakness and hyperkalemia. The patient appears to have just been admitted to the hospital August 18 through August 23, during which time she was treated for community-acquired pneumonia. Infectious workup at that time revealed the patient to be positive for human Alvarado pneumo virus. The patient is currently quite somnolent and is unable to provide additional history pertinent to her hospitalization. On presentation to the emergency department, the patient was initially noted to be afebrile and hemodynamically stable. Laboratory evaluation revealed elevated white blood cell count to 21,000. Chemistry profile was notable for a potassium of 6.2, which was hemolyzed. Creatinine was elevated to 3.9. Lactate was normal at 0.7. Urinalysis was positive for leukocyte esterase, greater than 100 white blood cells but no urine bacteria. The patient received supplemental IV fluid hydration, calcium, bicarbonate and Kayexalate. She was placed on antibiotics. Despite volume expansion with supplemental IV fluids, the patient remained hemodynamically unstable and did require eventual vasopressor support. She was subsequently transferred to the medical intensive care unit for ongoing management. The patient is currently overall net +3.1 L for the admission. Levophed has been placed on hold and the patient remains hemodynamically stable at the present time. Past Medical History Past Medical History (Chronic Problems): Chronic Problems (Last Reviewed 08/31/18 @ 23:19 by Jacques Santos MD) Congestive heart failure (Chronic) Type 2 diabetes mellitus (Chronic) 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) Diabetic gastroparesis (Chronic) Weakness of both lower extremities (Chronic) GERD (gastroesophageal reflux disease) (Chronic) Seizure disorder (Chronic) Chronic anticoagulation (Chronic) Paroxysmal atrial fibrillation (Chronic) Chronic pain syndrome (Chronic) DM2 (diabetes mellitus, type 2) (Chronic) Takotsubo cardiomyopathy (Chronic) Iron deficiency anemia (Chronic) Diverticulitis (Chronic) Depression (Chronic) Morbid obesity with BMI of 40.0-44.9, adult (Chronic) HLD (hyperlipidemia) (Chronic) Benign essential HTN (Chronic) Medical History: Medical History (Last Reviewed 08/31/18 @ 23:19 by Jacques Santos MD) Congestive heart failure (Chronic) I50.9 Type 2 diabetes mellitus (Chronic) E11.9 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) I25.2 Diabetic gastroparesis (Chronic) E11.43, K31.84 SOB (shortness of breath) (Resolved) R06.02 Acute bronchitis (Inactive) J20.9 Weakness of both lower extremities (Chronic) R29.898 GERD (gastroesophageal reflux disease) (Chronic) K21.9 Seizure disorder (Chronic) G40.909 Chronic anticoagulation (Chronic) Z79.01 Paroxysmal atrial fibrillation (Chronic) I48.0 Chronic pain syndrome (Chronic) G89.4 DM2 (diabetes mellitus, type 2) (Chronic) E11.9 Takotsubo cardiomyopathy (Chronic) I51.81 Iron deficiency anemia (Chronic) D50.9 Diverticulitis (Chronic) K57.92 Sepsis (Resolved) A41.9 Depression (Chronic) F32.9 Morbid obesity with BMI of 40.0-44.9, adult (Chronic) E66.01, Z68.41 HLD (hyperlipidemia) (Chronic) E78.5 Benign essential HTN (Chronic) I10 CVA (cerebral vascular accident) I63.9 Diverticulitis K57.92 2 para 2 Z78.9 Diabetic gastroparesis E11.43, K31.84 Fibromyalgia M79.7 QIAN (obstructive sleep apnea) G47.33 Restless leg syndrome G25.81 Fibromyalgia (Inactive) M79.7 2 para 2 Z78.9 History of CVA (cerebrovascular accident) (Inactive) Z86.73 Restless leg (Inactive) Allergies ciprofloxacin [From Cipro] Allergy (Verified 08/31/18 18:46) Shortness of breath ciprofloxacin HCl [From Cipro] Allergy (Verified 08/31/18 18:46) Shortness of breath cyclobenzaprine [From Flexeril] Allergy (Verified 08/31/18 18:46) Rash cyclobenzaprine HCl [From Flexeril] Allergy (Verified 08/31/18 18:46) Rash ketorolac tromethamine [From Toradol] Allergy (Verified 08/31/18 18:46) Chest tightness sulfamethoxazole [From Bactrim] Allergy (Verified 08/31/18 18:46) Itching trimethoprim [From Bactrim] Allergy (Verified 08/31/18 18:46) Itching metformin Adverse Reaction (Verified 08/31/18 18:46) Other headache valacyclovir HCl [From Valtrex] Adverse Reaction (Verified 08/31/18 18:46) Other Home Medications: Ambulatory Orders Medication Instructions Recorded Aspirin [Aspirin, Baby] 81 mg PO DAILY 05/07/16 Montelukast [Singulair] 10 mg PO DAILY 05/07/16 Ropinirole HCl [Requip] 1 mg PO QHS 05/07/16 Pregabalin [Lyrica] 150 mg PO BID 02/25/17 Hydrocodone/Acetaminophen 1 ea PO Q6H PRN PRN 06/01/17 [Hydrocodone-Acetamin 5-325 mg] allopurinol 100 mg tablet 100 mg PO QDAY 03/24/18 lamotrigine 100 mg tablet 100 mg PO BID 03/24/18 levothyroxine 75 mcg capsule 75 mcg PO QDAY 03/24/18 simvastatin 40 mg tablet 40 mg PO QPM 03/24/18 Methadone HCl 5 mg PO DAILY 04/06/18 Methadone HCl 10 mg PO QHS 04/06/18 Morphine [Morphine IR] 15 mg PO BID 05/23/18 Ondansetron [Zofran] 8 mg PO Q6H PRN PRN 05/23/18 furosemide 40 mg tablet 40 mg PO DAILY 06/25/18 valsartan 80 mg tablet 80 mg PO DAILY 06/26/18 potassium chloride ER 20 mEq 20 meq PO DAILY #90 tab 07/09/18 tablet,extended release(part/cryst) carvedilol 3.125 mg tablet 3.125 mg PO BID #180 tab 08/14/18 Benzonatate [Tessalon Perle] 200 mg PO TID PRN PRN #20 cap 08/17/18 proMETHazine tablet [Phenergan 25 mg PO Q6H PRN PRN #10 tab 08/17/18 tablet] Naloxegol Oxalate [Movantik] 12.5 mg PO QHS 08/19/18 Insulin Degludec [Tresiba 150 unit SQ DAILY 08/31/18 Flextouch U-200] Insulin Regular, Human [Humulin R] 20 unit SQ TID 08/31/18 Nystatin Powder [Mycostatin Powder] 1 applic TOPICAL TID 08/31/18 Milk of Magnesia 30 ml PO DAILY PRN 09/01/18 Surgical History: Surgical History (Last Reviewed 08/31/18 @ 23:19 by Jacques Santos MD) History of cholecystectomy Z90.49 History of knee surgery Z98.890 Surgical History: appendectomy, cholecystectomy Lives: Detention Smoking Status: Never smoker Alcohol: None - *Family History Paternal Family History: Family History (Last Reviewed 08/31/18 @ 23:19 by Jacques Santos MD) Mother Myocardial infarction Father Congestive heart failure Other Diabetes Heart disease History Items: Heart Disease, - - Bone cancer Maternal Family History: Family History (Last Reviewed 08/31/18 @ 23:19 by Jacques Santos MD) Mother Myocardial infarction Father Congestive heart failure Other Diabetes Heart disease History Items: COPD, Diabetes, Heart Disease, - - Smoker Review of Systems Unable to obtain accurate/complete ROS d/t: Due to current state of encephalopathy Patient Problems: Active and Suspected Problems (Last Reviewed 08/31/18 @ 23:19 by Jacques Santos MD) Hyperkalemia (Acute) Cystitis (Acute) SANGEETHA (acute kidney injury) (Acute) Septic shock (Acute) Objective: The patient's most recent lab work, culture data and imaging studies have all been personally reviewed. Surface echocardiogram dated June 2018 revealed indeterminate diastolic function with an ejection fraction of 60%. Blood and urine cultures are currently pending. - Physical Exam General: No apparent distress, Confused, Disoriented HEENT: Atraumatic, PERRLA, Normocephalic Oral: Dry Mucosa Neck: Supple, No Nodes, Trachea Midline Lungs: No rhonchi, No wheeze, No rales, Diminished, - - Poor inspiratory effort Cardiovascular: Regular rate, Regular Rhythm, Normal S1, Normal S2, No murmurs Abdomen: Bowel Sounds Present, Soft, Non Tender, Obese Extremities: No clubbing, No cyanosis, No edema Skin: No breakdown Musculoskeletal: No Muscle Wasting Lymphatic: No Cervical, Supraclavicular, or Inguinal Adenopathy Neurological: - - Will arouse transiently to verbal stimulation and then falls quickly back to sleep. Psych/Mental Status: Flat Affect Vital Signs Temp Pulse Resp BP Pulse Ox 37.2 C 65 15 109/62 100 09/01/18 06:00 09/01/18 06:15 09/01/18 06:15 09/01/18 06:15 09/01/18 06:15 Oxygen Flow Rate (L/min) 2 Oxygen Delivery Method Nasal Cannula Weight: 279 lb 5.211 oz Body Mass Index (BMI) 44.6 Finger Stick Blood Glucose 279 Intake and Output for Last 24 Hours 08/30/18 08/31/18 09/01/18 23:59 23:59 23:59 Intake Total 4190 / 4190 514 / 514 Output Total 850 / 850 750 / 750 Balance 3340 / 3340 -236 / -236 Laboratory Tests Past 24 Hrs 08/31/18 08/31/18 08/31/18 18:50 18:50 19:20 WBC 21.1 H RBC 4.45 Hgb 11.7 L Hct 36.9 L MCV 82.9 MCH 26.3 L MCHC 31.7 L RDW 16.7 H RDW Differential 49.4 H Plt Count 319 MPV 10.4 Immature Gran % (Auto) 0.400 Neut % (Auto) 70.7 H Lymph % (Auto) 16.6 L [place] % (Auto) 11.0 H Eos % (Auto) 1.2 Baso % (Auto) 0.1 Absolute Neuts (auto) 14.9 H Absolute Lymphs (auto) 3.50 Total Counted Not Reportable Differential Comment SCANNED Diff Path Review May foll Platelet Estimate ADEQUATE Sodium Cancelled 130 L Potassium Cancelled 6.2 H* Chloride Cancelled 93 L Carbon Dioxide Cancelled 29.0 Anion Gap Cancelled 8 BUN Cancelled 66 H Creatinine Cancelled 3.99 H Estim Creat Clear Calc Cancelled 13.51 Est GFR (MDRD) Af Amer Cancelled 15 L Est GFR (MDRD) Non-Af Cancelled 12 L BUN/Creatinine Ratio Cancelled 16.5 Glucose Cancelled 80 Lactic Acid Calcium Cancelled 9.1 Magnesium Cancelled 3.3 H Urine Color Urine Clarity Urine pH Ur Specific [place] Urine Protein Urine Glucose (UA) Urine Ketones Urine Occult Blood Urine Nitrite Urine Bilirubin Urine Urobilinogen Ur Leukocyte Esterase Urine RBC Urine WBC Ur Squamous Epith Cells Urine Bacteria Urine Mucus 08/31/18 08/31/18 09/01/18 19:45 20:00 03:35 WBC 13.6 H RBC 3.94 L Hgb 10.1 L Hct 33.1 L MCV 84.0 MCH 25.6 L MCHC 30.5 L RDW 16.5 H RDW Differential 50.8 H Plt Count 270 MPV 9.8 Immature Gran % (Auto) 0.200 Neut % (Auto) 73.2 H Lymph % (Auto) 17.0 L [place] % (Auto) 8.2 Eos % (Auto) 1.3 Baso % (Auto) 0.1 Absolute Neuts (auto) 9.9 H Absolute Lymphs (auto) 2.30 Total Counted Not Reportable Differential Comment Diff Path Review Platelet Estimate Sodium Potassium Chloride Carbon Dioxide Anion Gap BUN Creatinine Estim Creat Clear Calc Est GFR (MDRD) Af Amer Est GFR (MDRD) Non-Af BUN/Creatinine Ratio Glucose Lactic Acid 0.7 Calcium Magnesium Urine Color Yellow Urine Clarity Cloudy Urine pH 6.0 Ur Specific [place] 1.015 Urine Protein 30 H Urine Glucose (UA) Normal Urine Ketones Negative Urine Occult Blood 150 H Urine Nitrite Negative Urine Bilirubin Negative Urine Urobilinogen Normal Ur Leukocyte Esterase 500 H Urine RBC 0 SEEN Urine WBC >100 SEEN Ur Squamous Epith Cells 0 SEEN Urine Bacteria 0 SEEN Urine Mucus 0 SEEN 09/01/18 03:35 WBC RBC Hgb Hct MCV MCH MCHC RDW RDW Differential Plt Count MPV Immature Gran % (Auto) Neut % (Auto) Lymph % (Auto) [place] % (Auto) Eos % (Auto) Baso % (Auto) Absolute Neuts (auto) Absolute Lymphs (auto) Total Counted Differential Comment Diff Path Review Platelet Estimate Sodium 136 Potassium 5.5 H Chloride 101 Carbon Dioxide 27.0 Anion Gap 8 BUN 59 H Creatinine 3.05 H Estim Creat Clear Calc 17.67 Est GFR (MDRD) Af Amer 20 L Est GFR (MDRD) Non-Af 16 L BUN/Creatinine Ratio 19.3 Glucose 119 H Lactic Acid Calcium 8.1 L Magnesium Urine Color Urine Clarity Urine pH Ur Specific [place] Urine Protein Urine Glucose (UA) Urine Ketones Urine Occult Blood Urine Nitrite Urine Bilirubin Urine Urobilinogen Ur Leukocyte Esterase Urine RBC Urine WBC Ur Squamous Epith Cells Urine Bacteria Urine Mucus POC Glucose 09/01/18 09/01/18 08/31/18 03:35 02:10 23:00 POC Glucose 110 78 103 08/31/18 08/31/18 22:17 21:59 POC Glucose 137 H 37 L* Clinical Impression(s) from Imaging Studies Chest X-Ray 08/31/18 19:14 IMPRESSION: No acute thoracic pathology. Electronically Signed: Devan Wang, at 19:46 EST Tel , Service support , Assessment/Plan Active and Suspected Problems (Last Reviewed 08/31/18 @ 23:19 by Jacques Santos MD) Hyperkalemia (Acute) Cystitis (Acute) SANGEETHA (acute kidney injury) (Acute) Septic shock (Acute) RECOMMENDATIONS: 1. Continue Levophed and wean as tolerated. 2. Continue broad-spectrum antibiotics pending infectious workup. 3. Continue to hold sedating medications for now. 4. Obtain arterial blood gas and consider initiation of BiPAP therapy. IMPRESSIONS: 1. Septic shock Presumptive urinary source of infection. The patient has been adequately volume resuscitated at this time. Continue vasopressor support as needed to maintain hemodynamic stability. Continue antibiotics pending infectious workup. 2. Encephalopathy Likely metabolic in nature and potentially related to underlying cystitis. Anticipate improvement with correction of underlying metabolic derangements and by addressing presumptive urinary source of infection. Continue to hold sedating medications for now. We will also obtain arterial blood gas and initiate noninvasive positive pressure ventilation, if needed. 3. Acute on chronic kidney disease/hyperkalemia Likely secondary to ischemic ATN in the setting of #1. Anticipate improvement with stabilization of hemodynamics. Continue to monitor urine output. No current indication for renal replacement therapy. 4. Normocytic anemia Continue to monitor blood counts daily. Plan to transfuse if hemoglobin is less than 7 g/dL. 5. Chronic congestive heart failure/[place]otsubo cardiomyopathy/paroxysmal atrial fibrillation The patient has been adequately volume resuscitated at this time. Continue to hold Lasix and outpatient antihypertensive regimen until hemodynamics have stabilized. 6. Morbid obesity/hypertension/hyperlipidemia/diabetes mellitus type 2/chronic opiate dependence/hypothyroidism/unspecified seizure disorder Complicates care, management, recovery and prognosis. Continue Lamictal and Synthroid. Opiates are currently on hold. TIME: 45 minutes of critical care time, independent of procedures, was spent addressing the patient's septic shock, acute cystitis, encephalopathy, acute on chronic kidney disease, hyperkalemia, review of all data and collaboration with the care team. ([id number]) Code Visit [id number]: [id number] Critical care first hour
[2018-09-01 07:11] LABS: Bedside Glucose 102 mg/dL (70-110)
[2018-09-01 07:11] LABS: Bedside Glucose 77 mg/dL (70-110)
[2018-09-01 08:01] LABS: Base Excess 1 mmol/L (-2 to +2); Bicarbonate 26.9 mmol/L (22-26); Blood Gas Specimen Type ART; O2 Delivery Device Nasal Can; PO2 92 mmHG (75-100); SITE R Radial; SO2 97 % (95-99); Time Given 753; Total Carbon Dioxide 28 mmol/L; pCO2 48.5 mmHg (35-45); pH 7.35 (7.35-7.45)
--- NOTE | 2018-09-01 08:45 | PN_ITS ---
Patient Problems: Active and Suspected Problems (Last Reviewed 08/31/18 @ 23:19 by Jacques Santos MD) Hyperkalemia (Acute) Cystitis (Acute) SANGEETHA (acute kidney injury) (Acute) Septic shock (Acute) Subjective: Patient is a 62-year-old lady recently discharged from the hospital following admission for community-acquired pneumonia as well as upper respiratory tract infection with human Alvarado pneumo virus discharged to [facility] facility. Patient was brought back to the emergency department on account of increasing generalized weakness as well as abnormal electrolyte with elevated potassium 6.2 creatinine of 3.05 patient creatinine on discharge on 07/22/2019 was 1.04. Patient in addition was found to have abnormal urinalysis consistent with acute cystitis. Patient was found to be relatively hypotensive in the ED did not respond to fluid resuscitation had to be started on pressors and admitted to the intensive care unit Objective: GENERAL: Appears ill looking HEENT: Atraumatic; moist oral mucosa EYES; Anicteric, Normal Conjunctiva NECK; supple, normal thyroid, RESPIRATORY: Diminished to auscultation bilaterally, CARDIOVASCULAR: Regular S1 S2, GI: soft, non-tender, normoactive bowel sounds, : No Renal angle tenderness; EXTREMITIES: No edema, no clubbing, MUSCULOSKELETAL: No Joint Tenderness; NEURO: no lateralizing signs. SKIN: No Rash PSYCH; flat affect Vitals/I&O's: Vital Signs Temp Pulse Resp BP Pulse Ox 100.2 F H 85 26 H 103/44 L 100 09/01/18 08:00 09/01/18 08:00 09/01/18 08:00 09/01/18 08:00 09/01/18 08:00 Oxygen Flow Rate (L/min) 2 Oxygen Delivery Method Nasal Cannula Weight: 126.7 kg Body Mass Index (BMI) 44.6 Finger Stick Blood Glucose 279 Intake and Output for Last 24 Hours 08/30/18 08/31/18 09/01/18 23:59 23:59 23:59 Intake Total 4190 / 4190 514 / 514 Output Total 850 / 850 750 / 750 Balance 3340 / 3340 -236 / -236 Laboratory Results 08/31/18 18:50: WBC 21.1 H, RBC 4.45, Hgb 11.7 L, Hct 36.9 L, MCV 82.9, MCH 26.3 L, MCHC 31.7 L, RDW 16.7 H, RDW Differential 49.4 H, Plt Count 319, MPV 10.4, Immature Gran % (Auto) 0.400, Neut % (Auto) 70.7 H, Lymph % (Auto) 16.6 L, [place] % (Auto) 11.0 H, Eos % (Auto) 1.2, Baso % (Auto) 0.1, Absolute Neuts (auto) 14.9 H, Absolute Lymphs (auto) 3.50, Total Counted Not Reportable, Differential Comment SCANNED, Diff Path Review December foll, Platelet Estimate ADEQUATE 08/31/18 18:50: Sodium Cancelled, Potassium Cancelled, Chloride Cancelled, Carbon Dioxide Cancelled, Anion Gap Cancelled, BUN Cancelled, Creatinine Cancelled, Estim Creat Clear Calc Cancelled, Est GFR (MDRD) Af Amer Cancelled, Est GFR (MDRD) Non-Af Cancelled, BUN/Creatinine Ratio Cancelled, Glucose Cancelled, Calcium Cancelled, Magnesium Cancelled 08/31/18 19:20: Sodium 130 L, Potassium 6.2 H*, Chloride 93 L, Carbon Dioxide 29.0, Anion Gap 8, BUN 66 H, Creatinine 3.99 H, Estim Creat Clear Calc 13.51, Est GFR (MDRD) Af Amer 15 L, Est GFR (MDRD) Non-Af 12 L, BUN/Creatinine Ratio 16.5, Glucose 80, Calcium 9.1, Magnesium 3.3 H 08/31/18 19:45: Urine Color Yellow, Urine Clarity Cloudy, Urine pH 6.0, Ur Specific [place] 1.015, Urine Protein 30 H, Urine Glucose (UA) Normal, Urine Ketones Negative, Urine Occult Blood 150 H, Urine Nitrite Negative, Urine Bilirubin Negative, Urine Urobilinogen Normal, Ur Leukocyte Esterase 500 H, Urine RBC 0 SEEN, Urine WBC >100 SEEN, Ur Squamous Epith Cells 0 SEEN, Urine Bacteria 0 SEEN, Urine Mucus 0 SEEN 08/31/18 20:00: Lactic Acid 0.7 08/31/18 21:59: POC Glucose 37 L* 08/31/18 22:17: POC Glucose 137 H 08/31/18 23:00: POC Glucose 103 09/01/18 02:10: POC Glucose 78 09/01/18 03:35: WBC 13.6 H, RBC 3.94 L, Hgb 10.1 L, Hct 33.1 L, MCV 84.0, MCH 25.6 L, MCHC 30.5 L, RDW 16.5 H, RDW Differential 50.8 H, Plt Count 270, MPV 9.8, Immature Gran % (Auto) 0.200, Neut % (Auto) 73.2 H, Lymph % (Auto) 17.[address], [place] % (Auto) 8.2, Eos % (Auto) 1.3, Baso % (Auto) 0.1, Absolute Neuts (auto) 9.9 H, Absolute Lymphs (auto) 2.30, Total Counted Not Reportable 09/01/18 03:35: Sodium 136, Potassium 5.5 H, Chloride 101, Carbon Dioxide 27.0, Anion Gap 8, BUN 59 H, Creatinine 3.05 H, Estim Creat Clear Calc 17.67, Est GFR (MDRD) Af Amer 20 L, Est GFR (MDRD) Non-Af 16 L, BUN/Creatinine Ratio 19.3, Glucose 119 H, Calcium 8.1 L 09/01/18 03:35: POC Glucose 110 09/01/18 06:40: POC Glucose 77 09/01/18 07:03: POC Glucose 102 09/01/18 07:54: Specimen Type ART, Sample Site R Radial, pH 7.35, Bicarbonate Actual 26.9 H, POC Total CO2 28, Base Excess 1, O2 Saturation 97, ABG pCO2 48.5 H, ABG pO2 92, O2 Delivery Device Nasal Can, Liter Flow 2.0, Blood Gas Notified Whom ICU MD, Blood Gas Notified Time 753 Current Medications Acetaminophen (Tylenol) 650 mg PO Q6H PRN PRN PRN Reason: PAIN/FEVER > 100.4 Allopurinol (Zyloprim) 100 mg PO DAILYCM [facility] Aspirin (Aspirin, Baby) 81 mg PO DAILYCM [facility] Atorvastatin Calcium (Lipitor) 20 mg PO QHS [facility] Last Admin: 08/31/18 22:33 Dose: 20 mg Benzonatate (Tessalon Perle) 200 mg PO TID PRN PRN PRN Reason: COUGH Dextrose (D50w Syringe) 0 gm IV X1 PRN; Protocol PRN Reason: Hypoglycemia Last Admin: 08/31/18 22:05 Dose: 25 gm Glucagon () 1 mg IM .X1 PRN PRN Reason: Hypoglycemia Heparin Sodium (Porcine) (Heparin Na) 5,000 unit SC Q8 [facility] Last Admin: 09/01/18 05:37 Dose: 5,000 unit Sodium Chloride () 250 mls @ 15 mls/hr IV .[id number] PRN PRN Reason: SALINE FLUSH Last Admin: 09/01/18 06:59 Dose: 15 mls/hr Norepinephrine Bitartrate 8 mg (/ Dextrose) 258 mls @ 9.68 mls/hr IV .[id number] [facility] Last Admin: 08/31/18 22:58 Dose: 9.68 mls/hr Dextrose/Sodium Chloride () 1,000 mls @ 75 mls/hr IV .[id number] [facility] Last Admin: 08/31/18 22:55 Dose: 75 mls/hr Ceftriaxone Sodium 2 gm/ (Sodium Chloride) 50 mls @ 100 mls/hr IV Q24@2200 [facility] Lamotrigine (Lamictal) 100 mg PO BID [facility] Last Admin: 08/31/18 22:33 Dose: 100 mg Levothyroxine Sodium (Synthroid) 75 mcg PO DAILY@0600 [facility] Last Admin: 09/01/18 06:58 Dose: Not Given Magnesium Hydroxide (Milk Of Magnesia) 30 ml PO DAILY PRN PRN PRN Reason: Constipation Montelukast Sodium (Singulair) 10 mg PO DAILY [facility] Non-Formulary Medication (Naloxegol Oxalate [Movantik]) 12.5 mg PO QHS [facility] Nystatin (Mycostatin Powder) 1 applic TOPICAL TID [facility]; Protocol Last Admin: 09/01/18 05:37 Dose: 1 applicatio Ondansetron HCl (Zofran) 8 mg PO Q6H PRN PRN PRN Reason: NAUSEA Pramipexole Dihydrochloride (Mirapex) 0.5 mg PO QHS [facility] Last Admin: 08/31/18 22:33 Dose: 0.5 mg Sodium Chloride () 5 - 15 ml IV UD PRN PRN Reason: SALINE FLUSH Last Admin: 09/01/18 06:59 Dose: 10 ml Medical Necessity - Tobacco Use Smoking Status: Never smoker Assessment/Plan All Active Problems (Last Reviewed 08/31/18 @ 23:19 by Jacques Santos MD) Community acquired pneumonia (Resolved) Hyperkalemia (Acute) Cystitis (Acute) SANGEETHA (acute kidney injury) (Acute) Septic shock (Acute) SOB (shortness of breath) (Resolved) Sepsis (Resolved) Chest pain (Resolved) Community acquired pneumonia (Resolved) History of pulmonary embolus (PE) (Resolved) Hypotension (Resolved) Intractable vomiting with nausea (Resolved) Pulmonary embolism (Resolved) Patient is a 62-year-old lady recently discharged from the hospital following admission for community-acquired pneumonia as well as upper respiratory tract infection with human Alvarado pneumo virus discharged to [facility] facility. Patient was brought back to the emergency department on account of increasing generalized weakness as well as abnormal electrolyte with elevated potassium 6.2 creatinine of 3.05 patient creatinine on discharge on 07/22/2019 was 1.04. Patient in addition was found to have abnormal urinalysis consistent with acute cystitis. Patient was found to be relatively hypotensive in the ED did not respond to fluid resuscitation had to be started on pressors and admitted to the intensive care unit 1. Septic shock; from urinary tract infection (acute cystitis). And admitted to the intensive care unit was started on pressors in addition to broad-spectrum antibiotic therapy with Rocephin cultures sent with plans to adjust antibiotics based on culture result 2. Recent hospitalization for ion for community-acquired pneumonia as well as upper respiratory tract infection with human Alvarado pneumo virus 3. Acute kidney injury suspected ATN from patient septic shock patient being resuscitated with IV fluids with monitoring of electrolyte 4. Hyperkalemia secondary to patient acute kidney injury 5. History of Takotsubo's cardiomyopathy therefore not repeat echo obtained on 07/04/2018 was 60% 6. Previous history of embolism involving the proximal right lower lobe artery patient was previously treated with Xarelto 7. Diabetes mellitus type II applications including gastroparesis patient is a long acting insulin. Also placed on Accu-Cheks before meals and at bedtime, sliding scale insulin 8. Morbid obesity with BMI of with BMI of 45.1 weight reduction advised 9. Hypertension-blood pressure controlled, home medications continued with dose adjustment as needed 10. Dyslipidemia-patient is on statin therapy, continued at home dose 11. Paroxysmal A. fib rate controlled patient was previously on systemic anticoagulation discontinued sometime in 2017 reason for discontinuation not c lear from documentation 12. Seizure disorder is on lamotrigine 13. Deconditioned state requested for physical outpatient therapy assessment and treatment 14. Hypothyroidism-patient is on levothyroxine home dose continued 15. DVT prophylaxis SC heparin 16. Chronic pain syndrome 17. Chronic constipation Active Medications Acetaminophen (Tylenol) 650 mg PO Q6H PRN PRN PRN Reason: PAIN/FEVER > 100.4 [facility] Aspirin (Aspirin, Baby) 81 mg PO DAILYCM [facility] Atorvastatin Calcium (Lipitor) 20 mg PO QHS [facility] Last Admin: 08/31/18 22:33 Dose: 20 mg Benzonatate (Tessalon Perle) 200 mg PO TID PRN PRN PRN Reason: COUGH Dextrose (D50w Syringe) 0 gm IV X1 PRN; Protocol PRN Reason: Hypoglycemia Last Admin: 08/31/18 22:05 Dose: 25 gm Glucagon () 1 mg IM .X1 PRN PRN Reason: Hypoglycemia Heparin Sodium (Porcine) (Heparin Na) 5,000 unit SC Q8 [facility] Last Admin: 09/01/18 05:37 Dose: 5,000 unit Sodium Chloride () 250 mls @ 15 mls/hr IV .[id number] PRN PRN Reason: SALINE FLUSH Last Admin: 09/01/18 06:59 Dose: 15 mls/hr Norepinephrine Bitartrate 8 mg (/ Dextrose) 258 mls @ 9.68 mls/hr IV .[id number] [facility] Last Admin: 08/31/18 22:58 Dose: 9.68 mls/hr Dextrose/Sodium Chloride () 1,000 mls @ 75 mls/hr IV .[id number] [facility] Last Admin: 08/31/18 22:55 Dose: 75 mls/hr Ceftriaxone Sodium 2 gm/ (Sodium Chloride) 50 mls @ 100 mls/hr IV Q24@2200 [facility] Lamotrigine (Lamictal) 100 mg PO BID [facility] Last Admin: 08/31/18 22:33 Dose: 100 mg Levothyroxine Sodium (Synthroid) 75 mcg PO DAILY@0600 [facility] Last Admin: 09/01/18 06:58 Dose: Not Given Magnesium Hydroxide (Milk Of Magnesia) 30 ml PO DAILY PRN PRN PRN Reason: Constipation Montelukast Sodium (Singulair) 10 mg PO DAILY [facility] Non-Formulary Medication (Naloxegol Oxalate [Movantik]) 12.5 mg PO QHS [facility] Nystatin (Mycostatin Powder) 1 applic TOPICAL TID [facility]; Protocol Last Admin: 09/01/18 05:37 Dose: 1 applicatio Ondansetron HCl (Zofran) 8 mg PO Q6H PRN PRN PRN Reason: NAUSEA Pramipexole Dihydrochloride (Mirapex) 0.5 mg PO QHS [facility] Last Admin: 08/31/18 22:33 Dose: 0.5 mg Sodium Chloride () 5 - 15 ml IV UD PRN PRN Reason: SALINE FLUSH Last Admin: 09/01/18 06:59 Dose: 10 ml Clinical Impression(s) from Imaging Studies Chest X-Ray 08/31/18 19:14 IMPRESSION: No acute thoracic pathology. Electronically Signed: Devan Wang, at 19:46 EST Tel , Service support , Code Visit Inpatient E&M: [id number] Subs Hosp L3
[2018-09-01 09:57] LABS: Anion Gap 6 (5-15); BUN 50 mg/dL (7-18); BUN/Creat Ratio 19.5 RATIO (10-20); Calcium,Total 8.1 mg/dL (8.5-10.1); Chloride 101 mmol/L (98-107); Creatinine, Serum 2.57 mg/dL (0.55-1.02); EST Glomerular Filtration Rate 20 mL/min (>60); Est Glom Filt Rate - Afr Amer 24 mL/min (>60); Estimated Creatinine Clearance 20.97 ml/min; Glucose 94 mg/dL (74-106); Potassium 5.3 mmol/L (3.5-5.1); Sodium Level 135 mmol/L (136-145)
[2018-09-01] MEDS: Acetaminophen 325 MG Tablet 650 MG PO (10:36)
[2018-09-01] MEDS: Senna/Docusate Sodium 1 Tablet 2 TABLET PO (10:37)
[2018-09-01] MEDS: Allopurinol 100 MG Tablet PO (10:37)
[2018-09-01] MEDS: Levothyroxine 75 MCG Tablet PO (10:37)
[2018-09-01] MEDS: Dext 5%-0.45% NS 1,000 ML 75 ML IV (10:37)
[2018-09-01] MEDS: Aspirin 81 MG TAB.CHEW PO (10:37)
[2018-09-01] MEDS: Montelukast 10 MG Tablet PO (10:37)
[2018-09-01] MEDS: lamoTRIgine 100 MG Tablet PO ×2 (10:38→20:46)
--- NOTE | 2018-09-01 10:58 | CASEMGMT ---
Social Work: Attended ICU rounds. Patient sleeping through out rounds. Will attempt to see patient later today to verify plan to return to [facility]. ARGENTINA Edouard
[2018-09-01 11:46] LABS: Bedside Glucose 120 mg/dL (70-110)
--- NOTE | 2018-09-01 12:23 | CASEMGMT ---
Social Work: Met with patient in room to discuss plan for discharge once patient is medically ready. Patient verbalizing that plan will be to return to [facility] once discharged. JAYE Krishnamurthy at [facility]. Voice mail message left to call this SW regarding patient plan to return to [facility] when medically ready. PLAN: Patient to return to [facility] when medically ready and once pre cert is obtained. ARGENTINA Edouard
--- NOTE | 2018-09-01 12:51 | NURSING ---
attempted to contact patients sister per patients request, there was no answer at phone number listed
[2018-09-01] MEDS: Glucerna Shake 120 ML LIQUID PO ×3 (14:16→20:50)
[2018-09-01 14:47] LABS: Pathologist Review Reviewed
[2018-09-01 16:40] LABS: Bedside Glucose 151 mg/dL (70-110)
[2018-09-01] MEDS: Pramipexole Di-HCl 0.5 MG Tablet PO (20:46)
[2018-09-01] MEDS: Atorvastatin Calcium 20 MG Tablet PO (20:46)
[2018-09-01] MEDS: Benzonatate 100 MG Capsule 200 MG PO (22:10)
[2018-09-01] MEDS: Ondansetron 8 MG Tablet PO (22:10)
[2018-09-01] MEDS: Zolpidem Tartrate 5 MG Tablet PO (22:24)
[2018-09-01 22:36] LABS: Bedside Glucose 263 mg/dL (70-110)
[2018-09-02] VITALS (17 sets, daily range): BP systolic 84–172; BP diastolic 42–89; PULSE 63–115; RESP 11–24; TEMP 36.6–38; O2SAT 92–99
[2018-09-02 02:36] LABS: Bedside Glucose 170 mg/dL (70-110)
[2018-09-02] MEDS: Acetaminophen 325 MG Tablet 650 MG PO ×2 (03:13→09:15)
[2018-09-02] MEDS: 0.9% NaCl Peripheral Flush Adult/Peds IV ×3 (03:15→21:42)
[2018-09-02] MEDS: Benzonatate 100 MG Capsule 200 MG PO ×2 (06:05→14:22)
[2018-09-02] MEDS: Heparin Injection (Vial) 5,000 UNIT/ML VIAL 5000 UNIT SC ×3 (06:05→21:42)
[2018-09-02] MEDS: CHLORHEXIDINE GLUC 2% CLOTH 1 EACH TOWELETTE TOPICAL (06:05)
[2018-09-02] MEDS: Nystatin Powder 15gm Bottle 1 APPLIC TOPICAL ×3 (06:06→21:41)
[2018-09-02] MEDS: Levothyroxine 75 MCG Tablet PO (06:06)
--- NOTE | 2018-09-02 06:51 | PCM.PN.INT ---
Subjective: The patient was seen and examined at the bedside this morning. Events from the last 24 hours have been reviewed. The patient did spike a fever overnight at 0300 hrs. with a T-max of 38 ?C. The patient remains hemodynamically stable off of vasopressor support and is maintaining appropriate oxygen saturations on room air. The patient is much more alert and appropriately interactive. Objective: The patient's most recent lab work, culture data and imaging studies have all been personally reviewed. Preliminary blood culture dated August 31 was positive for gram-positive cocci. Urine culture is pending. General: Alert, Cooperative, No apparent distress, - - Morbidly obese HEENT: Atraumatic, PERRLA, Normocephalic Oral: No Gingival or Mucosal Lesions/ Ulcerations Neck: Supple, No Nodes, Trachea Midline Lungs: No rhonchi, No wheeze, No rales, Diminished Cardiovascular: Regular rate, Regular Rhythm, Normal S1, Normal S2, No murmurs Abdomen: Bowel Sounds Present, Soft, Non Tender, Obese Extremities: No clubbing, No cyanosis, No edema Skin: No breakdown Musculoskeletal: No Tenderness to Palpation of Joints or Extremities, No Muscle Wasting Lymphatic: No Cervical, Supraclavicular, or Inguinal Adenopathy Neurological: Cranial nerves II-XII grossly intact, Neuro grossly intact Psych/Mental Status: Alert and oriented to time, place, person, mood and affect Vital Signs Temp Pulse Resp BP Pulse Ox 37.1 C 81 12 142/58 H 95 09/02/18 06:00 09/02/18 06:00 09/02/18 06:00 09/02/18 06:00 09/02/18 06:00 Oxygen Flow Rate (L/min) 2 Oxygen Delivery Method Room Air Weight: 277 lb 12.519 oz Body Mass Index (BMI) 44.6 Finger Stick Blood Glucose 279 Intake and Output for Last 24 Hours 08/31/18 09/01/18 09/02/18 23:59 23:59 23:59 Intake Total 4190 / 4190 2975 / 2975 120 / 120 Output Total 850 / 850 4025 / 4025 900 / 900 Balance 3340 / 3340 -1050 / -1050 -780 / -780 Labs (Last 48 Hours) 08/31/18 08/31/18 08/31/18 18:50 18:50 19:20 WBC 21.1 H RBC 4.45 Hgb 11.7 L Hct 36.9 L MCV 82.9 MCH 26.3 L MCHC 31.7 L RDW 16.7 H RDW Differential 49.4 H Plt Count 319 MPV 10.4 Immature Gran % (Auto) 0.400 Neut % (Auto) 70.7 H Lymph % (Auto) 16.6 L [place] % (Auto) 11.0 H Eos % (Auto) 1.2 Baso % (Auto) 0.1 Absolute Neuts (auto) 14.9 H Absolute Lymphs (auto) 3.50 Total Counted Not Reportable Differential Comment SCANNED Diff Path Review Reviewed Platelet Estimate ADEQUATE Specimen Type Sample Site pH Bicarbonate Actual POC Total CO2 Base Excess O2 Saturation ABG pCO2 ABG pO2 O2 Delivery Device Liter Flow Blood Gas Notified Whom Blood Gas Notified Time Sodium Cancelled 130 L Potassium Cancelled 6.2 H* Chloride Cancelled 93 L Carbon Dioxide Cancelled 29.0 Anion Gap Cancelled 8 BUN Cancelled 66 H Creatinine Cancelled 3.99 H Estim Creat Clear Calc Cancelled 13.51 Est GFR (MDRD) Af Amer Cancelled 15 L Est GFR (MDRD) Non-Af Cancelled 12 L BUN/Creatinine Ratio Cancelled 16.5 Glucose Cancelled 80 Lactic Acid Calcium Cancelled 9.1 Magnesium Cancelled 3.3 H Urine Color Urine Clarity Urine pH Ur Specific [place] Urine Protein Urine Glucose (UA) Urine Ketones Urine Occult Blood Urine Nitrite Urine Bilirubin Urine Urobilinogen Ur Leukocyte Esterase Urine RBC Urine WBC Ur Squamous Epith Cells Urine Bacteria Urine Mucus POC Glucose 08/31/18 08/31/18 08/31/18 19:45 20:00 21:59 WBC RBC Hgb Hct MCV MCH MCHC RDW RDW Differential Plt Count MPV Immature Gran % (Auto) Neut % (Auto) Lymph % (Auto) Stephen[place] % (Auto) Eos % (Auto) Baso % (Auto) Absolute Neuts (auto) Absolute Lymphs (auto) Total Counted Differential Comment Diff Path Review Platelet Estimate Specimen Type Sample Site pH Bicarbonate Actual POC Total CO2 Base Excess O2 Saturation ABG pCO2 ABG pO2 O2 Delivery Device Liter Flow Blood Gas Notified Whom Blood Gas Notified Time Sodium Potassium Chloride Carbon Dioxide Anion Gap BUN Creatinine Estim Creat Clear Calc Est GFR (MDRD) Af Amer Est GFR (MDRD) Non-Af BUN/Creatinine Ratio Glucose Lactic Acid 0.7 Calcium Magnesium Urine Color Yellow Urine Clarity Cloudy Urine pH 6.0 Ur Specific [place] 1.015 Urine Protein 30 H Urine Glucose (UA) Normal Urine Ketones Negative Urine Occult Blood 150 H Urine Nitrite Negative Urine Bilirubin Negative Urine Urobilinogen Normal Ur Leukocyte Esterase 500 H Urine RBC 0 SEEN Urine WBC >100 SEEN Ur Squamous Epith Cells 0 SEEN Urine Bacteria 0 SEEN Urine Mucus 0 SEEN POC Glucose 37 L* 08/31/18 08/31/18 09/01/18 22:17 23:00 02:10 WBC RBC Hgb Hct MCV MCH MCHC RDW RDW Differential Plt Count MPV Immature Gran % (Auto) Neut % (Auto) Lymph % (Auto) Stephen[place] % (Auto) Eos % (Auto) Baso % (Auto) Absolute Neuts (auto) Absolute Lymphs (auto) Total Counted Differential Comment Diff Path Review Platelet Estimate Specimen Type Sample Site pH Bicarbonate Actual POC Total CO2 Base Excess O2 Saturation ABG pCO2 ABG pO2 O2 Delivery Device Liter Flow Blood Gas Notified Whom Blood Gas Notified Time Sodium Potassium Chloride Carbon Dioxide Anion Gap BUN Creatinine Estim Creat Clear Calc Est GFR (MDRD) Af Amer Est GFR (MDRD) Non-Af BUN/Creatinine Ratio Glucose Lactic Acid Calcium Magnesium Urine Color Urine Clarity Urine pH Ur Specific [place] Urine Protein Urine Glucose (UA) Urine Ketones Urine Occult Blood Urine Nitrite Urine Bilirubin Urine Urobilinogen Ur Leukocyte Esterase Urine RBC Urine WBC Ur Squamous Epith Cells Urine Bacteria Urine Mucus POC Glucose 137 H 103 78 09/01/18 09/01/18 09/01/18 03:35 03:35 03:35 WBC 13.6 H RBC 3.94 L Hgb 10.1 L Hct 33.1 L MCV 84.0 MCH 25.6 L MCHC 30.5 L RDW 16.5 H RDW Differential 50.8 H Plt Count 270 MPV 9.8 Immature Gran % (Auto) 0.200 Neut % (Auto) 73.2 H Lymph % (Auto) 17.0 L [place] % (Auto) 8.2 Eos % (Auto) 1.3 Baso % (Auto) 0.1 Absolute Neuts (auto) 9.9 H Absolute Lymphs (auto) 2.30 Total Counted Not Reportable Differential Comment Diff Path Review Platelet Estimate Specimen Type Sample Site pH Bicarbonate Actual POC Total CO2 Base Excess O2 Saturation ABG pCO2 ABG pO2 O2 Delivery Device Liter Flow Blood Gas Notified Whom Blood Gas Notified Time Sodium 136 Potassium 5.5 H Chloride 101 Carbon Dioxide 27.0 Anion Gap 8 BUN 59 H Creatinine 3.05 H Estim Creat Clear Calc 17.67 Est GFR (MDRD) Af Amer 20 L Est GFR (MDRD) Non-Af 16 L BUN/Creatinine Ratio 19.3 Glucose 119 H Lactic Acid Calcium 8.1 L Magnesium Urine Color Urine Clarity Urine pH Ur Specific [place] Urine Protein Urine Glucose (UA) Urine Ketones Urine Occult Blood Urine Nitrite Urine Bilirubin Urine Urobilinogen Ur Leukocyte Esterase Urine RBC Urine WBC Ur Squamous Epith Cells Urine Bacteria Urine Mucus POC Glucose 110 09/01/18 09/01/18 09/01/18 06:40 07:03 07:54 WBC RBC Hgb Hct MCV MCH MCHC RDW RDW Differential Plt Count MPV Immature Gran % (Auto) Neut % (Auto) Lymph % (Auto) [place] % (Auto) Eos % (Auto) Baso % (Auto) Absolute Neuts (auto) Absolute Lymphs (auto) Total Counted Differential Comment Diff Path Review Platelet Estimate Specimen Type ART Sample Site R Radial pH 7.35 Bicarbonate Actual 26.9 H POC Total CO2 28 Base Excess 1 O2 Saturation 97 ABG pCO2 48.5 H ABG pO2 92 O2 Delivery Device Nasal Can Liter Flow 2.0 Blood Gas Notified Whom ICU MD Blood Gas Notified Time 753 Sodium Potassium Chloride Carbon Dioxide Anion Gap BUN Creatinine Estim Creat Clear Calc Est GFR (MDRD) Af Amer Est GFR (MDRD) Non-Af BUN/Creatinine Ratio Glucose Lactic Acid Calcium Magnesium Urine Color Urine Clarity Urine pH Ur Specific [place] Urine Protein Urine Glucose (UA) Urine Ketones Urine Occult Blood Urine Nitrite Urine Bilirubin Urine Urobilinogen Ur Leukocyte Esterase Urine RBC Urine WBC Ur Squamous Epith Cells Urine Bacteria Urine Mucus POC Glucose 77 102 09/01/18 09/01/18 09/01/18 09:35 11:37 16:26 WBC RBC Hgb Hct MCV MCH MCHC RDW RDW Differential Plt Count MPV Immature Gran % (Auto) Neut % (Auto) Lymph % (Auto) [place] % (Auto) Eos % (Auto) Baso % (Auto) Absolute Neuts (auto) Absolute Lymphs (auto) Total Counted Differential Comment Diff Path Review Platelet Estimate Specimen Type Sample Site pH Bicarbonate Actual POC Total CO2 Base Excess O2 Saturation ABG pCO2 ABG pO2 O2 Delivery Device Liter Flow Blood Gas Notified Whom Blood Gas Notified Time Sodium 135 L Potassium 5.3 H Chloride 101 Carbon Dioxide 28.0 Anion Gap 6 BUN 50 H Creatinine 2.57 H Estim Creat Clear Calc 20.97 Est GFR (MDRD) Af Amer 24 L Est GFR (MDRD) Non-Af 20 L BUN/Creatinine Ratio 19.5 Glucose 94 Lactic Acid Calcium 8.1 L Magnesium Urine Color Urine Clarity Urine pH Ur Specific [place] Urine Protein Urine Glucose (UA) Urine Ketones Urine Occult Blood Urine Nitrite Urine Bilirubin Urine Urobilinogen Ur Leukocyte Esterase Urine RBC Urine WBC Ur Squamous Epith Cells Urine Bacteria Urine Mucus POC Glucose 120 H 151 H 09/01/18 09/02/18 09/02/18 22:26 02:28 06:40 WBC Pending RBC Pending Hgb Pending Hct Pending MCV Pending MCH Pending MCHC Pending RDW Pending RDW Differential Pending Plt Count Pending MPV Immature Gran % (Auto) Neut % (Auto) Pending Lymph % (Auto) [place] % (Auto) Eos % (Auto) Baso % (Auto) Absolute Neuts (auto) Pending Absolute Lymphs (auto) Total Counted Pending Differential Comment Diff Path Review Platelet Estimate Specimen Type Sample Site pH Bicarbonate Actual POC Total CO2 Base Excess O2 Saturation ABG pCO2 ABG pO2 O2 Delivery Device Liter Flow Blood Gas Notified Whom Blood Gas Notified Time Sodium Potassium Chloride Carbon Dioxide Anion Gap BUN Creatinine Estim Creat Clear Calc Est GFR (MDRD) Af Amer Est GFR (MDRD) Non-Af BUN/Creatinine Ratio Glucose Lactic Acid Calcium Magnesium Urine Color Urine Clarity Urine pH Ur Specific [place] Urine Protein Urine Glucose (UA) Urine Ketones Urine Occult Blood Urine Nitrite Urine Bilirubin Urine Urobilinogen Ur Leukocyte Esterase Urine RBC Urine WBC Ur Squamous Epith Cells Urine Bacteria Urine Mucus POC Glucose 263 H 170 H 09/02/18 06:40 WBC RBC Hgb Hct MCV MCH MCHC RDW RDW Differential Plt Count MPV Immature Gran % (Auto) Neut % (Auto) Lymph % (Auto) [place] % (Auto) Eos % (Auto) Baso % (Auto) Absolute Neuts (auto) Absolute Lymphs (auto) Total Counted Differential Comment Diff Path Review Platelet Estimate Specimen Type Sample Site pH Bicarbonate Actual POC Total CO2 Base Excess O2 Saturation ABG pCO2 ABG pO2 O2 Delivery Device Liter Flow Blood Gas Notified Whom Blood Gas Notified Time Sodium Pending Potassium Pending Chloride Pending Carbon Dioxide Pending Anion Gap Pending BUN Pending Creatinine Pending Estim Creat Clear Calc Est GFR (MDRD) Af Amer Pending Est GFR (MDRD) Non-Af Pending BUN/Creatinine Ratio Pending Glucose Pending Lactic Acid Calcium Pending Magnesium Urine Color Urine Clarity Urine pH Ur Specific [place] Urine Protein Urine Glucose (UA) Urine Ketones Urine Occult Blood Urine Nitrite Urine Bilirubin Urine Urobilinogen Ur Leukocyte Esterase Urine RBC Urine WBC Ur Squamous Epith Cells Urine Bacteria Urine Mucus POC Glucose Microbiology 08/31/18 20:00 Blood Culture (Wb) - Anticubital Right Blood Culture - Preliminary Clinical Impression(s) from Imaging Studies Chest X-Ray 08/31/18 19:14 IMPRESSION: No acute thoracic pathology. Electronically Signed: Devan Felipe, at 19:46 EST Tel , Service support , Medical Necessity - Tobacco Use Smoking Status: Never smoker Assessment/Plan All Active Problems (Last Reviewed 08/31/18 @ 23:19 by Jacques Sanots MD) Community acquired pneumonia (Resolved) Hyperkalemia (Acute) Cystitis (Acute) [place] (acute kidney injury) (Acute) Septic shock (Acute) SOB (shortness of breath) (Resolved) Sepsis (Resolved) Chest pain (Resolved) Community acquired pneumonia (Resolved) History of pulmonary embolus (PE) (Resolved) Hypotension (Resolved) Intractable vomiting with nausea (Resolved) Pulmonary embolism (Resolved) RECOMMENDATIONS: 1. Continue antibiotics as ordered. 2. Encourage p.o. intake and incentive spirometer use. 3. Mobilize patient as tolerated. 4. Cautious reintroduction of home opiate pain medications 5. Restart baseline cardiac medications. IMPRESSIONS: 1. Septic shock secondary to acute cystitis Continue antibiotics, pending finalized culture results. Positive blood cultures are most likely contamination. The patient remains afebrile and hemodynamically stable, without any further requirement for vasopressor support. 2. Encephalopathy Resolved. Likely metabolic in nature and potentially related to underlying cystitis. Recommend cautious reintroduction of the patient's home opiate medications. 3. Acute on chronic kidney disease/hyperkalemia Improving. Likely secondary to ischemic ATN in the setting of #1. Anticipate improvement with stabilization of hemodynamics. Continue to monitor urine output. No current indication for renal replacement therapy. 4. Normocytic anemia Continue to monitor blood counts daily. Plan to transfuse if hemoglobin is less than 7 g/dL. 5. Chronic congestive heart failure/[place] cardiomyopathy/paroxysmal atrial fibrillation The patient has been adequately volume resuscitated at this time. The patient's home Lasix and antihypertensive regimen can be restarted from my perspective. 6. Morbid obesity/hypertension/hyperlipidemia/diabetes mellitus type 2/chronic opiate dependence/hypothyroidism/unspecified seizure disorder Complicates care, management, recovery and prognosis. Continue Lamictal and Synthroid. This note was generated with [employer] dictation software. It may contain incorrect words, spelling, and punctuation that were not noted in checking the note before signing. DISPOSITION: The patient is medically stable for transfer out of the intensive care unit. Code Visit Inpatient E&M: 60875 Subs Hosp L3
[2018-09-02 06:55] LABS: Bedside Glucose 120 mg/dL (70-110)
[2018-09-02 06:57] LABS: Absolute Lymphocyte Count 2.27 X10^3/ul (0.83-4.51); Absolute Neutrophil Count 7.4 X10^3/uL (2.0-7.7); Basophil# 0.03 X10^3/uL; Basophil% 0.3 % (0-1); Eosinophils% 1.8 % (0-5); Hematocrit 29.7 % (37-47); Hemoglobin 9.2 g/dl (12.0-15.0); Lymphocyte # 2.27 X10^3/ul (4.0); Lymphocyte % 20.3 % (19-41); Mean Corpuscular Hgb 25.8 pg (27.0-32.0); Mean Corpuscular Volume 83.4 fL (81-99); Mean Platelet Vol. 10.7 fl (6.2-12.0); Monocyte# 1.22 X10^3/uL; Monocyte% 10.9 % (0-10); Neutrophil # 7.44 X10^3/uL (2.7-7.7); Neutrophil % 66.5 % (47-70); Platelet Count 254 K/mm3 (150-450); RBC Distribution Width CV 16.1 % (11.6-14.6); RBC Distribution Width SD 48.2 fl (35.1-43.9); Red Blood Count 3.56 M/mm3 (4.2-5.4); White Blood Count 11.2 K/mm3 (4.4-11.0)
[2018-09-02 06:58] LABS: POSITIVE COUNT NO; POSITIVE DIFFERENTIAL NO; POSITIVE MORPHOLOGY NO
[2018-09-02 07:06] LABS: Anion Gap 7 (5-15); BUN 33 mg/dL (7-18); BUN/Creat Ratio 20.2 RATIO (10-20); Calcium,Total 8.5 mg/dL (8.5-10.1); Chloride 102 mmol/L (98-107); Creatinine, Serum 1.63 mg/dL (0.55-1.02); EST Glomerular Filtration Rate 34 mL/min (>60); Est Glom Filt Rate - Afr Amer 41 mL/min (>60); Estimated Creatinine Clearance 33.07 ml/min; Glucose 127 mg/dL (74-106); Potassium 4.7 mmol/L (3.5-5.1); Sodium Level 138 mmol/L (136-145)
--- NOTE | 2018-09-02 07:20 | PN_ITS ---
Patient Problems: Active and Suspected Problems (Last Reviewed 08/31/18 @ 23:19 by Jacques Santos MD) Hyperkalemia (Acute) Cystitis (Acute) SANGEETHA (acute kidney injury) (Acute) Septic shock (Acute) Subjective: Patient seen much more awake. Patient blood cultures positive for coagulase staph aureus possibly contaminant. Objective: GENERAL: Appears ill looking HEENT: Atraumatic; moist oral mucosa EYES; Anicteric, Normal Conjunctiva NECK; supple, normal thyroid, RESPIRATORY: Diminished to auscultation bilaterally, CARDIOVASCULAR: Regular S1 S2, GI: soft, non-tender, normoactive bowel sounds, : No Renal angle tenderness; EXTREMITIES: No edema, no clubbing, MUSCULOSKELETAL: No Joint Tenderness; NEURO: no lateralizing signs. SKIN: No Rash PSYCH; flat affect Vitals/I&O's: Vital Signs Temp Pulse Resp BP Pulse Ox 98.8 F 81 12 142/58 H 95 09/02/18 06:00 09/02/18 06:00 09/02/18 06:00 09/02/18 06:00 09/02/18 06:00 Oxygen Flow Rate (L/min) 2 Oxygen Delivery Method Room Air Weight: 126 kg Body Mass Index (BMI) 44.6 Finger Stick Blood Glucose 279 Intake and Output for Last 24 Hours 08/31/18 09/01/18 09/02/18 23:59 23:59 23:59 Intake Total 4190 / 4190 2975 / 2975 120 / 120 Output Total 850 / 850 4025 / 4025 900 / 900 Balance 3340 / 3340 -1050 / -1050 -780 / -780 Microbiology Past 72 Hours 08/31/18 20:00 Blood Culture (Wb) - Anticubital Right Bacteria Detection (PCR) - Final Coag Negative Staph 08/31/18 20:00 Blood Culture (Wb) - Anticubital Right Blood Culture - Preliminary Coag Negative Staph Laboratory Results 08/31/18 18:50: Diff Path Review Reviewed 09/01/18 07:54: Specimen Type ART, Sample Site R Radial, pH 7.35, Bicarbonate Actual 26.9 H, POC Total CO2 28, Base Excess 1, O2 Saturation 97, ABG pCO2 48.5 H, ABG pO2 92, O2 Delivery Device Nasal Can, Liter Flow 2.0, Blood Gas Notified Whom ICU MD, Blood Gas Notified Time 753 09/01/18 09:35: Sodium 135 L, Potassium 5.3 H, Chloride 101, Carbon Dioxide 28.0, Anion Gap 6, BUN 50 H, Creatinine 2.57 H, Estim Creat Clear Calc 20.97, Est GFR (MDRD) Af Amer 24 L, Est GFR (MDRD) Non-Af 20 L, BUN/Creatinine Ratio 19.5, Glucose 94, Calcium 8.1 L 09/01/18 11:37: POC Glucose 120 H 09/01/18 16:26: POC Glucose 151 H 09/01/18 22:26: POC Glucose 263 H 09/02/18 02:28: POC Glucose 170 H 09/02/18 06:40: WBC 11.2 H, RBC 3.56 L, Hgb 9.2 L, Hct 29.7 L, MCV 83.4, MCH 25.8 L, MCHC 31.0 L, RDW 16.1 H, RDW Differential 48.2 H, Plt Count 254, MPV 10.7, Immature Gran % (Auto) 0.200, Neut % (Auto) 66.5, Lymph % (Auto) 20.3, [place] % (Auto) 10.9 H, Eos % (Auto) 1.8, Baso % (Auto) 0.3, Absolute Neuts (auto) 7.4, Absolute Lymphs (auto) 2.27, Total Counted Not Reportable 09/02/18 06:40: Sodium 138, Potassium 4.7, Chloride 102, Carbon Dioxide 29.0, Anion Gap 7, BUN 33 H, Creatinine 1.63 H, Estim Creat Clear Calc 33.07, Est GFR (MDRD) Af Amer 41 L, Est GFR (MDRD) Non-Af 34 L, BUN/Creatinine Ratio 20.2 H, Glucose 127 H, Calcium 8.5 09/02/18 06:52: POC Glucose 120 H Current Medications Acetaminophen (Tylenol) 650 mg PO Q6H PRN PRN PRN Reason: PAIN/FEVER > 100.4 Last Admin: 09/02/18 03:13 Dose: 650 mg [facility] Last Admin: 09/01/18 10:37 Dose: 100 mg Aspirin ([facility]in, Baby) [facility] Last Admin: 09/01/18 10:37 Dose: 81 mg Atorvastatin Calcium (Lipitor) 20 mg PO QHS [facility] Last Admin: 09/01/18 20:46 Dose: 20 mg Benzonatate (Tessalon Perle) 200 mg PO TID PRN PRN PRN Reason: COUGH Last Admin: 09/02/18 06:05 Dose: 200 mg Chlorhexidine Gluconate () 1 each TOPICAL DAILY [facility] Last Admin: 09/02/18 06:05 Dose: 1 each Dextrose (D50w Syringe) 0 gm IV X1 PRN; Protocol PRN Reason: Hypoglycemia Last Admin: 08/31/18 22:05 Dose: 25 gm Glucagon () 1 mg IM .X1 PRN PRN Reason: Hypoglycemia Heparin Sodium (Porcine) (Heparin Na) 5,000 unit SC Q8 [facility] Last Admin: 09/02/18 06:05 Dose: 5,000 unit Sodium Chloride () 250 mls @ 15 mls/hr IV .[id number] PRN PRN Reason: SALINE FLUSH Last Admin: 09/01/18 06:59 Dose: 15 mls/hr Ceftriaxone Sodium 2 gm/ (Sodium Chloride) 50 mls @ 100 mls/hr IV Q24@2200 [facility] Last Admin: 09/01/18 20:47 Dose: 100 mls/hr Lamotrigine (Lamictal) 100 mg PO BID [facility] Last Admin: 09/01/18 20:46 Dose: 100 mg Levothyroxine Sodium (Synthroid) 75 mcg PO DAILY@0600 [facility] Last Admin: 09/02/18 06:06 Dose: 75 mcg Magnesium Hydroxide (Milk Of Magnesia) 30 ml PO DAILY PRN PRN PRN Reason: Constipation Montelukast Sodium (Singulair) 10 mg PO DAILY [facility] Last Admin: 09/01/18 10:37 Dose: 10 mg Nutritional Formula (Lactose Free) (Glucerna Shake) 120 ml PO 4X/DAY [facility] Last Admin: 09/01/18 20:50 Dose: 120 ml Nystatin (Mycostatin Powder) 1 applic TOPICAL TID [facility]; Protocol Last Admin: 09/02/18 06:06 Dose: 1 applicatio Ondansetron HCl (Zofran) 8 mg PO Q6H PRN PRN PRN Reason: NAUSEA Last Admin: 09/01/18 22:10 Dose: 8 mg Pramipexole Dihydrochloride (Mirapex) 0.5 mg PO QHS [facility] Last Admin: 09/01/18 20:46 Dose: 0.5 mg Senna/Docusate Sodium (Senokot-S, Huma-Colace) 2 tablet PO BID [facility] Last Admin: 09/01/18 20:45 Dose: Not Given Sodium Chloride () 5 - 15 ml IV UD PRN PRN Reason: SALINE FLUSH Last Admin: 09/02/18 06:08 Dose: 10 ml Zolpidem Tartrate (Ambien (Generic)) 5 mg PO QHS PRN PRN PRN Reason: SLEEP Last Admin: 09/01/18 22:24 Dose: 5 mg Medical Necessity - Tobacco Use Smoking Status: Never smoker Assessment/Plan All Active Problems (Last Reviewed 08/31/18 @ 23:19 by Jacques Santos MD) Community acquired pneumonia (Resolved) Hyperkalemia (Acute) Cystitis (Acute) SANGEETHA (acute kidney injury) (Acute) Septic shock (Acute) SOB (shortness of breath) (Resolved) Sepsis (Resolved) Chest pain (Resolved) Community acquired pneumonia (Resolved) History of pulmonary embolus (PE) (Resolved) Hypotension (Resolved) Intractable vomiting with nausea (Resolved) Pulmonary embolism (Resolved) Patient is a 62-year-old lady recently discharged from the hospital following admission for community-acquired pneumonia as well as upper respiratory tract infection with human Alvarado pneumo virus [facility]. Patient was brought back to the emergency department on account of increasing generalized weakness as well as abnormal electrolyte with elevated potassium 6.2 creatinine of 3.05 patient creatinine on discharge on 07/22/2019 was 1.04. Patient in addition was found to have abnormal urinalysis consistent with acute cystitis. Patient was found to be relatively hypotensive in the ED did not respond to fluid resuscitation had to be started on pressors and admitted to the intensive care unit 1. Septic shock; from urinary tract infection (acute cystitis). And admitted to the intensive care unit was started on pressors in addition to broad-spectrum antibiotic therapy with Rocephin cultures sent with plans to adjust antibiotics based on culture result urine culture still pending. Blood cultures came back positive for coagulase negative staph which was thought to be contaminant 2. Recent hospitalization for ion for community-acquired pneumonia as well as upper respiratory tract infection with human Alvarado pneumo virus 3. Acute kidney injury suspected ATN from patient septic shock patient being resuscitated with IV fluids with monitoring of electrolyte and kidney function continues to improve. 4. Hyperkalemia secondary to patient acute kidney injury 5. History of Takotsubo's cardiomyopathy therefore not repeat echo obtained on 07/04/2018 was 60% 6. Previous history of embolism involving the proximal right lower lobe artery patient was previously treated with Xarelto 7. Diabetes mellitus type II applications including gastroparesis patient is a long acting insulin. Also placed on Accu-Cheks before meals and at bedtime, sliding scale insulin 8. Morbid obesity with BMI of with BMI of 45.1 weight reduction advised 9. Hypertension-blood pressure controlled, home medications continued with dose adjustment as needed 10. Dyslipidemia-patient is on statin therapy, continued at home dose 11. Paroxysmal A. fib rate controlled patient was previously on systemic anticoagulation discontinued sometime in 2017 reason for discontinuation not clear from documentation 12. Seizure disorder is on lamotrigine 13. Deconditioned state requested for physical outpatient therapy assessment and treatment 14. Hypothyroidism-patient is on levothyroxine home dose continued 15. DVT prophylaxis SC heparin 16. Chronic pain syndrome 17. Chronic constipation Active Medications Acetaminophen (Tylenol) 650 mg PO Q6H PRN PRN PRN Reason: PAIN/FEVER > 100.4 Allopurinol (Zyloprim) 100 mg PO DAILYCM [facility] Aspirin (Aspirin, Baby) 81 mg PO DAILYCM [facility] Atorvastatin Calcium (Lipitor) 20 mg PO QHS [facility] Last Admin: 08/31/18 22:33 Dose: 20 mg Benzonatate (Tessalon Perle) 200 mg PO TID PRN PRN PRN Reason: COUGH Dextrose (D50w Syringe) 0 gm IV X1 PRN; Protocol PRN Reason: Hypoglycemia Last Admin: 08/31/18 22:05 Dose: 25 gm Glucagon () 1 mg IM .X1 PRN PRN Reason: Hypoglycemia Heparin Sodium (Porcine) (Heparin Na) 5,000 unit SC Q8 [facility] Last Admin: 09/01/18 05:37 Dose: 5,000 unit Sodium Chloride () 250 mls @ 15 mls/hr IV .[id number] PRN PRN Reason: SALINE FLUSH Last Admin: 09/01/18 06:59 Dose: 15 mls/hr Norepinephrine Bitartrate 8 mg (/ Dextrose) 258 mls @ 9.68 mls/hr IV .[id number] [facility] Last Admin: 08/31/18 22:58 Dose: 9.68 mls/hr Dextrose/Sodium Chloride () 1,000 mls @ 75 mls/hr IV .[id number] [facility] Last Admin: 08/31/18 22:55 Dose: 75 mls/hr Ceftriaxone Sodium 2 gm/ (Sodium Chloride) 50 mls @ 100 mls/hr IV Q24@2200 [facility] Lamotrigine (Lamictal) 100 mg PO BID [facility] Last Admin: 08/31/18 22:33 Dose: 100 mg Levothyroxine Sodium (Synthroid) 75 mcg PO DAILY@0600 [facility] Last Admin: 09/01/18 06:58 Dose: Not Given Magnesium Hydroxide (Milk Of Magnesia) 30 ml PO DAILY PRN PRN PRN Reason: Constipation Montelukast Sodium (Singulair) 10 mg PO DAILY [facility] Non-Formulary Medication (Naloxegol Oxalate [Movantik]) 12.5 mg PO QHS [facility] Nystatin (Mycostatin Powder) 1 applic TOPICAL TID [facility]; Protocol Last Admin: 09/01/18 05:37 Dose: 1 applicatio Ondansetron HCl (Zofran) 8 mg PO Q6H PRN PRN PRN Reason: NAUSEA Pramipexole Dihydrochloride (Mirapex) 0.5 mg PO QHS [facility] Last Admin: 08/31/18 22:33 Dose: 0.5 mg Sodium Chloride () 5 - 15 ml IV UD PRN PRN Reason: SALINE FLUSH Last Admin: 09/01/18 06:59 Dose: 10 ml Clinical Impression(s) from Imaging Studies Chest X-Ray 08/31/18 19:14 IMPRESSION: No acute thoracic pathology. Electronically Signed: Devan Wang, at 19:46 EST Tel , Service support , Code Visit Inpatient E&M: [id number] Subs Hosp L3
[2018-09-02] MEDS: lamoTRIgine 100 MG Tablet PO ×2 (09:14→21:40)
[2018-09-02] MEDS: Allopurinol 100 MG Tablet PO (09:14)
[2018-09-02] MEDS: Montelukast 10 MG Tablet PO (09:15)
[2018-09-02] MEDS: Glucerna Shake 120 ML LIQUID PO (09:15)
[2018-09-02] MEDS: Aspirin 81 MG TAB.CHEW PO (09:16)
--- NOTE | 2018-09-02 12:01 | NURSING ---
patient BGT ordered for now, patient just finished eating so BG is elevated
[2018-09-02 12:05] LABS: Bedside Glucose 267 mg/dL (70-110)
[2018-09-02] MEDS: Haloperidol Lactate 10 MG/5 ML UDC PO ×2 (14:17→18:07)
--- NOTE | 2018-09-02 15:10 | CASEMGMT ---
Social Work: TC to Yessy regarding patient return to [facility] at D/C. Yessy requesting clinicals to fax to Stephane for precert. Clinicals faxed. Per nursing admission documentation, patient does not have advance directives and is not interested in information in the documents at this time. PLAN: Patient to return to [facility] when medically ready and pending insurance precert. ARGENTINA Edouard
[2018-09-02 16:51] LABS: Bedside Glucose 217 mg/dL (70-110)
[2018-09-02] MEDS: Atorvastatin Calcium 20 MG Tablet PO (21:40)
[2018-09-02] MEDS: Pregabalin 75 MG Capsule 225 MG PO (21:41)
[2018-09-02] MEDS: Pramipexole Di-HCl 0.5 MG Tablet PO (21:41)
[2018-09-02] MEDS: Zolpidem Tartrate 5 MG Tablet PO (21:41)
[2018-09-02] MEDS: 0.9% NaCl IVPB Med Flush (250 mL) 15 ML IV (21:49)
[2018-09-02 22:31] LABS: Bedside Glucose 204 mg/dL (70-110)
[2018-09-03] MEDS: Haloperidol Lactate 10 MG/5 ML UDC PO ×2 (03:56→18:10)
[2018-09-03 04:00] VITALS: BP 160/65; PULSE 107; RESP 18; TEMP 36.9; O2SAT 100
[2018-09-03] MEDS: Nystatin Powder 15gm Bottle 1 APPLIC TOPICAL ×3 (06:47→21:20)
[2018-09-03] MEDS: Heparin Injection (Vial) 5,000 UNIT/ML VIAL 5000 UNIT SC ×3 (06:47→21:21)
[2018-09-03] MEDS: Levothyroxine 75 MCG Tablet PO (06:47)
[2018-09-03] MEDS: Acetaminophen 325 MG Tablet 650 MG PO ×2 (06:58→21:25)
[2018-09-03 07:00] LABS: Bedside Glucose 135 mg/dL (70-110)
--- NOTE | 2018-09-03 07:04 | PCM.PROGNOTE ---
Patient Problems: Active and Suspected Problems (Last Reviewed 08/31/18 @ 23:19 by Jacques Santos MD) Hyperkalemia (Acute) Cystitis (Acute) SANGEETHA (acute kidney injury) (Acute) Septic shock (Acute) Subjective: The patient was seen and examined at the bedside this morning. Events from the last 24 hours have been reviewed. The patient is currently afebrile, hemodynamically stable and maintaining appropriate oxygen saturations on room air. The patient is resting comfortably this morning without any overnight events noted. Objective: The patient's most recent lab work, culture data and imaging studies have all been personally reviewed. Blood culture was positive for coag negative staph, likely contamination. Urine culture was positive for possible enterococcus species. - Physical Exam General: Alert, Cooperative, No apparent distress HEENT: Atraumatic, PERRLA, Normocephalic Oral: No Gingival or Mucosal Lesions/ Ulcerations Neck: Supple, No Nodes, Trachea Midline Lungs: No rhonchi, No wheeze, No rales, Diminished Cardiovascular: Regular rate, Regular Rhythm, Normal S1, Normal S2 Abdomen: Bowel Sounds Present, Soft, Non Tender, Obese Extremities: No clubbing, No cyanosis, No edema Skin: No breakdown Musculoskeletal: No Tenderness to Palpation of Joints or Extremities, No Muscle Wasting Lymphatic: No Cervical, Supraclavicular, or Inguinal Adenopathy Neurological: Neuro grossly intact Psych/Mental Status: Normal Affect, Appropriate Vital Signs Temp Pulse Resp BP Pulse Ox 36.9 C 107 H 18 160/65 H 100 09/03/18 04:00 09/03/18 04:00 09/03/18 04:00 09/03/18 04:00 09/03/18 04:00 Oxygen Flow Rate (L/min) 2 Oxygen Delivery Method Room Air Weight: 272 lb 4.334 oz Body Mass Index (BMI) 44.6 Finger Stick Blood Glucose 279 Intake and Output for Last 24 Hours 09/01/18 09/02/18 09/03/18 23:59 23:59 23:59 Intake Total 2975 / 2975 480 / 480 574 / 574 Output Total 4025 / 4025 1600 / 1600 1000 / 1000 Balance -1050 / -1050 -1120 / -1120 -426 / -426 Microbiology Past 72 Hours 08/31/18 20:00 Bacteria Detection (PCR) - Final Blood Culture (Wb) - Anticubital Right Coag Negative Staph Blood Culture - Preliminary Coag Negative Staph 08/31/18 19:45 Urine Culture - Preliminary Urine Catheter - Robb GPC Poss Enterococcus sp Laboratory Tests Past 24 Hrs 09/02/18 06:40 Sodium 138 Potassium 4.7 Chloride 102 Carbon Dioxide 29.0 Anion Gap 7 BUN 33 H Creatinine 1.63 H Estim Creat Clear Calc 33.07 Est GFR (MDRD) Af Amer 41 L Est GFR (MDRD) Non-Af 34 L BUN/Creatinine Ratio 20.2 H Glucose 127 H Calcium 8.5 POC Glucose 09/03/18 09/02/18 09/02/18 06:50 22:23 16:42 POC Glucose 135 H 204 H 217 H 09/02/18 11:52 POC Glucose 267 H Clinical Impression(s) from Imaging Studies Chest X-Ray 08/31/18 19:14 IMPRESSION: No acute thoracic pathology. Electronically Signed: Devan Lindsaykiaralakisha, at 19:46 EST Tel , Service support , Medical Necessity - Tobacco Use Smoking Status: Never smoker Assessment/Plan All Active Problems (Last Reviewed 08/31/18 @ 23:19 by Jacques Santos MD) Community acquired pneumonia (Resolved) Hyperkalemia (Acute) Cystitis (Acute) SANGEETHA (acute kidney injury) (Acute) Septic shock (Acute) SOB (shortness of breath) (Resolved) Sepsis (Resolved) Chest pain (Resolved) Community acquired pneumonia (Resolved) History of pulmonary embolus (PE) (Resolved) Hypotension (Resolved) Intractable vomiting with nausea (Resolved) Pulmonary embolism (Resolved) RECOMMENDATIONS: 1. Continue antibiotics as ordered. 2. Encourage incentive spirometer use. 3. Mobilize patient as tolerated. IMPRESSIONS: 1. Septic shock secondary to acute cystitis Improved. Continue antibiotics, pending finalized culture results. Positive blood cultures are most likely contamination. The patient remains afebrile and hemodynamically stable, without any further requirement for vasopressor support. 2. Encephalopathy Resolved. Likely metabolic in nature and potentially related to underlying cystitis. Recommend cautious reintroduction of the patient's home opiate medications. 3. Acute on chronic kidney disease/hyperkalemia Improving. Likely secondary to ischemic ATN in the setting of #1. Anticipate improvement with stabilization of hemodynamics. Continue to monitor urine output. No current indication for renal replacement therapy. 4. Normocytic anemia Continue to monitor blood counts daily. Plan to transfuse if hemoglobin is less than 7 g/dL. 5. Chronic congestive heart failure/Tokotsubo cardiomyopathy/paroxysmal atrial fibrillation The patient has been adequately volume resuscitated at this time. The patient's home Lasix and antihypertensive regimen can be restarted from my perspective. 6. Morbid obesity/hypertension/hyperlipidemia/diabetes mellitus type 2/chronic opiate dependence/hypothyroidism/unspecified seizure disorder Complicates care, management, recovery and prognosis. Continue Lamictal and Synthroid. This note was generated with [employer] dictation software. It may contain incorrect words, spelling, and punctuation that were not noted in checking the note before signing. DISPOSITION: Given the patient's lack of further ICU/pulmonary needs, will sign off. Please call with any additional questions. Code Visit Inpatient E&M: [id number] Subs Hosp L2
--- NOTE | 2018-09-03 07:23 | PCM.PN.HOSP ---
Patient Problems: Active and Suspected Problems (Last Reviewed 08/31/18 @ 23:19 by Jacques Santos MD) Hyperkalemia (Acute) Cystitis (Acute) SANGEETHA (acute kidney injury) (Acute) Septic shock (Acute) Subjective: Patient seen improving clinically. Urine culture so far positive for enterococcus species final identification and sensitivities pending Objective: GENERAL: Appears ill looking HEENT: Atraumatic; moist oral mucosa EYES; Anicteric, Normal Conjunctiva NECK; supple, normal thyroid, RESPIRATORY: Diminished to auscultation bilaterally, CARDIOVASCULAR: Regular S1 S2, GI: soft, non-tender, normoactive bowel sounds, : No Renal angle tenderness; EXTREMITIES: No edema, no clubbing, MUSCULOSKELETAL: No Joint Tenderness; NEURO: no lateralizing signs. SKIN: No Rash PSYCH; flat affect Vitals/I&O's: Vital Signs Temp Pulse Resp BP Pulse Ox 98.5 F 107 H 18 160/65 H 100 09/03/18 04:00 09/03/18 04:00 09/03/18 04:00 09/03/18 04:00 09/03/18 04:00 Oxygen Flow Rate (L/min) 2 Oxygen Delivery Method Room Air Weight: 123.5 kg Body Mass Index (BMI) 44.6 Finger Stick Blood Glucose 279 Intake and Output for Last 24 Hours 09/01/18 09/02/18 09/03/18 23:59 23:59 23:59 Intake Total 2975 / 2975 480 / 480 574 / 574 Output Total 4025 / 4025 1600 / 1600 1000 / 1000 Balance -1050 / -1050 -1120 / -1120 -426 / -426 Microbiology Past 72 Hours 08/31/18 20:00 Blood Culture (Wb) - Anticubital Right Bacteria Detection (PCR) - Final Coag Negative Staph 08/31/18 20:00 Blood Culture (Wb) - Anticubital Right Blood Culture - Preliminary Coag Negative Staph 08/31/18 19:45 Urine Catheter - Robb Urine Culture - Preliminary GPC Poss Enterococcus sp Laboratory Results 09/02/18 11:52: POC Glucose 267 H 09/02/18 16:42: POC Glucose 217 H 09/02/18 22:23: POC Glucose 204 H 09/03/18 06:50: POC Glucose 135 H Current Medications Acetaminophen (Tylenol) 650 mg PO Q6H PRN PRN PRN Reason: PAIN/FEVER > 100.4 Last Admin: 09/03/18 06:58 Dose: 650 mg [facility]) [facility] [place] [facility] Admin: 09/02/18 09:14 Dose: 100 mg Aspirin (Aspirin, Baby) [facility] [place] Last Admin: 09/02/18 09:16 Dose: 81 mg Atorvastatin Calcium (Lipitor) 20 mg PO QHS [facility] Last Admin: 09/02/18 21:40 Dose: 20 mg Benzonatate (Tessalon Perle) 200 mg PO TID PRN PRN PRN Reason: COUGH Last Admin: 09/02/18 14:22 Dose: 200 mg Dextrose (D50w Syringe) 0 gm IV X1 PRN; Protocol PRN Reason: Hypoglycemia Last Admin: 08/31/18 22:05 Dose: 25 gm Glucagon () 1 mg IM .X1 PRN PRN Reason: Hypoglycemia Haloperidol Lactate (Haloperidol Lactate) 1 mg PO TID PRN PRN PRN Reason: NAUSEA/EMESIS Last Admin: 09/03/18 03:56 Dose: 1 mg Heparin Sodium (Porcine) (Heparin Na) 5,000 unit SC Q8 [facility] Last Admin: 09/03/18 06:47 Dose: 5,000 unit Sodium Chloride () 250 mls @ 15 mls/hr IV .[id number] PRN PRN Reason: SALINE FLUSH Last Admin: 09/02/18 21:49 Dose: 15 mls/hr Ceftriaxone Sodium 2 gm/ (Sodium Chloride) 50 mls @ 100 mls/hr IV Q24@2200 [facility] Last Admin: 09/02/18 21:42 Dose: 100 mls/hr Lamotrigine (Lamictal) 100 mg PO BID [facility] Last Admin: 09/02/18 21:40 Dose: 100 mg Levothyroxine Sodium (Synthroid) 75 mcg PO DAILY@0600 [facility] Last Admin: 09/03/18 06:47 Dose: 75 mcg Magnesium Hydroxide (Milk Of Magnesia) 30 ml PO DAILY PRN PRN PRN Reason: Constipation Montelukast Sodium (Singulair) 10 mg PO DAILY [facility] Last Admin: 09/02/18 09:15 Dose: 10 mg Nutritional Formula (Lactose Free) (Glucerna Shake) 120 ml PO 4X/DAY [facility] Last Admin: 09/02/18 21:42 Dose: Not Given Nystatin (Mycostatin Powder) 1 applic TOPICAL TID [facility]; Protocol Last Admin: 09/03/18 06:47 Dose: 1 applicatio Ondansetron HCl (Zofran Odt) 8 mg PO Q8H PRN PRN PRN Reason: nausea, emesis Pramipexole Dihydrochloride (Mirapex) 0.5 mg PO QHS [facility] Last Admin: 09/02/18 21:41 Dose: 0.5 mg Pregabalin (Lyrica) 225 mg PO BID [facility] Last Admin: 09/02/18 21:41 Dose: 225 mg Senna/Docusate Sodium (Senokot-S, Huma-Colace) 2 tablet PO BID [facility] Last Admin: 09/02/18 21:41 Dose: Not Given Sodium Chloride () 5 - 15 ml IV UD PRN PRN Reason: SALINE FLUSH Last Admin: 09/02/18 21:42 Dose: 10 ml Zolpidem Tartrate (Ambien (Generic)) 5 mg PO QHS PRN PRN PRN Reason: SLEEP Last Admin: 09/02/18 21:41 Dose: 5 mg Medical Necessity - Tobacco Use Smoking Status: Never smoker Assessment/Plan All Active Problems (Last Reviewed 08/31/18 @ 23:19 by Jacques Santos MD) Community acquired pneumonia (Resolved) Hyperkalemia (Acute) Cystitis (Acute) SANGEETHA (acute kidney injury) (Acute) Septic shock (Acute) SOB (shortness of breath) (Resolved) Sepsis (Resolved) Chest pain (Resolved) Community acquired pneumonia (Resolved) History of pulmonary embolus (PE) (Resolved) Hypotension (Resolved) Intractable vomiting with nausea (Resolved) Pulmonary embolism (Resolved) Patient is a 62-year-old lady recently discharged from the hospital following admission for community-acquired pneumonia as well as upper respiratory tract infection with human Alvarado pneumo virus [facility]. Patient was brought back to the emergency department on account of increasing generalized weakness as well as abnormal electrolyte with elevated potassium 6.2 creatinine of 3.05 patient creatinine on discharge on 07/22/2019 was 1.04. Patient in addition was found to have abnormal urinalysis consistent with acute cystitis. Patient was found to be relatively hypotensive in the ED did not respond to fluid resuscitation had to be started on pressors and admitted to the intensive care unit 1. Septic shock; from urinary tract infection (acute cystitis) enterococcus species. And admitted to the intensive care unit was started on pressors in addition to broad-spectrum antibiotic therapy with Rocephin cultures sent with plans to adjust antibiotics based on culture result urine culture still pending. Blood cultures came back positive for coagulase negative staph which was thought to be contaminant. 2. Recent hospitalization for ion for community-acquired pneumonia as well as upper respiratory tract infection with human Alvarado pneumo virus 3. Acute kidney injury suspected ATN from patient septic shock patient being resuscitated with IV fluids with monitoring of electrolyte and kidney function continues to improve. 4. Hyperkalemia secondary to patient acute kidney injury 5. History of Takotsubo's cardiomyopathy therefore not repeat echo obtained on 07/04/2018 was 60% 6. Previous history of embolism involving the proximal right lower lobe artery patient was previously treated with Xarelto 7. Diabetes mellitus type II applications including gastroparesis patient is a long acting insulin. Also placed on Accu-Cheks before meals and at bedtime, sliding scale insulin 8. Morbid obesity with BMI of with BMI of 45.1 weight reduction advised 9. Hypertension-blood pressure controlled, home medications continued with dose adjustment as needed 10. Dyslipidemia-patient is on statin therapy, continued at home dose 11. Paroxysmal A. fib rate controlled patient was previously on systemic anticoagulation discontinued sometime in 2017 reason for discontinuation not clear from documentation 12. Seizure disorder is on lamotrigine 13. Deconditioned state requested for physical outpatient therapy assessment and treatment 14. Hypothyroidism-patient is on levothyroxine home dose continued 15. DVT prophylaxis SC heparin 16. Chronic pain syndrome 17. Chronic constipation Active Medications Acetaminophen (Tylenol) 650 mg PO Q6H PRN PRN PRN Reason: PAIN/FEVER > 100.4 Allopurinol (Zyloprim) 100 mg PO DAILYCM [facility] Aspirin (Aspirin, Baby) 81 mg PO DAILYCM [facility] Atorvastatin Calcium (Lipitor) 20 mg PO QHS [facility] Last Admin: 08/31/18 22:33 Dose: 20 mg Benzonatate (Tessalon Perle) 200 mg PO TID PRN PRN PRN Reason: COUGH Dextrose (D50w Syringe) 0 gm IV X1 PRN; Protocol PRN Reason: Hypoglycemia Last Admin: 08/31/18 22:05 Dose: 25 gm Glucagon () 1 mg IM .X1 PRN PRN Reason: Hypoglycemia Heparin Sodium (Porcine) (Heparin Na) 5,000 unit SC Q8 [facility] Last Admin: 09/01/18 05:37 Dose: 5,000 unit Sodium Chloride () 250 mls @ 15 mls/hr IV .[id number] PRN PRN Reason: SALINE FLUSH Last Admin: 09/01/18 06:59 Dose: 15 mls/hr Norepinephrine Bitartrate 8 mg (/ Dextrose) 258 mls @ 9.68 mls/hr IV .[id number] [facility] Last Admin: 08/31/18 22:58 Dose: 9.68 mls/hr Dextrose/Sodium Chloride () 1,000 mls @ 75 mls/hr IV .[id number] [facility] Last Admin: 08/31/18 22:55 Dose: 75 mls/hr Ceftriaxone Sodium 2 gm/ (Sodium Chloride) 50 mls @ 100 mls/hr IV Q24@2200 [facility] Lamotrigine (Lamictal) 100 mg PO BID [facility] Last Admin: 08/31/18 22:33 Dose: 100 mg Levothyroxine Sodium (Synthroid) 75 mcg PO DAILY@0600 [facility] Last Admin: 09/01/18 06:58 Dose: Not Given Magnesium Hydroxide (Milk Of Magnesia) 30 ml PO DAILY PRN PRN PRN Reason: Constipation Montelukast Sodium (Singulair) 10 mg PO DAILY [facility] Non-Formulary Medication (Naloxegol Oxalate [Movantik]) 12.5 mg PO QHS [facility] Nystatin (Mycostatin Powder) 1 applic TOPICAL TID [facility]; Protocol Last Admin: 09/01/18 05:37 Dose: 1 applicatio Ondansetron HCl (Zofran) 8 mg PO Q6H PRN PRN PRN Reason: NAUSEA Pramipexole Dihydrochloride (Mirapex) 0.5 mg PO QHS [facility] Last Admin: 08/31/18 22:33 Dose: 0.5 mg Sodium Chloride () 5 - 15 ml IV UD PRN PRN Reason: SALINE FLUSH Last Admin: 09/01/18 06:59 Dose: 10 ml Clinical Impression(s) from Imaging Studies Chest X-Ray 08/31/18 19:14 IMPRESSION: No acute thoracic pathology. Electronically Signed: Devan Wang, at 19:46 EST Tel , Service support , Code Visit Inpatient E&M: [id number] Subs Hosp L2
[2018-09-03] MEDS: Pregabalin 75 MG Capsule 225 MG PO ×2 (09:20→21:22)
[2018-09-03] MEDS: Aspirin 81 MG TAB.CHEW PO (09:20)
[2018-09-03] MEDS: lamoTRIgine 100 MG Tablet PO ×2 (09:20→21:22)
[2018-09-03] MEDS: Allopurinol 100 MG Tablet PO (09:20)
[2018-09-03] MEDS: Montelukast 10 MG Tablet PO (09:21)
[2018-09-03] MEDS: Senna/Docusate Sodium 1 Tablet 2 TABLET PO (09:21)
[2018-09-03 10:00] VITALS: BP 124/63; PULSE 87; RESP 18; TEMP 36.6; O2SAT 94
--- NOTE | 2018-09-03 10:42 | CASEMGMT ---
Addendum entered by Velma Edmondson 09/03/18 11:37: Maria De Jesus from [facility] called to ask about pt's IV rocephin and if pt is ready for discharge today. SW texted physician, pt is not ready for discharge today and the antibiotics are undetermined as pt's cultures are pending. AJ let Maria De Jesus at [facility] know this information. She states pt was getting ready to go home, insurance had cut her, and then she ended up back in the hospital. Maria De Jesus to find out if pt had any home care set up for when she was initially to leave the [facility]. AJ can follow up if needed, should pt get denied SNF by insurance. ARGENTINA Brownlee, CDL PROGRAM COORDINATOR Original Note: AJ called Maria De Jesus at [facility], she states that the precert is pending, will let this SW know as soon as she hears. SW will continue to follow. ARGENTINA Brownlee, CDL PROGRAM COORDINATOR
[2018-09-03 11:46] LABS: Bedside Glucose 275 mg/dL (70-110)
[2018-09-03 12:48] VITALS: O2SAT 94
[2018-09-03] MEDS: guaiFENesin 1,200 MG Tablet 1200 MG PO ×2 (15:15→21:24)
[2018-09-03] MEDS: Menthol/Lanolin/Calamine/Znox 113 GM Tube 1 APPLIC TOPICAL ×2 (15:16→21:21)
[2018-09-03 16:00] VITALS: BP 160/71; PULSE 85; RESP 18; TEMP 36.7; O2SAT 97
[2018-09-03 16:36] LABS: Bedside Glucose 203 mg/dL (70-110)
[2018-09-03 21:15] VITALS: BP 167/75; PULSE 100; RESP 20; TEMP 36.8; O2SAT 95
[2018-09-03] MEDS: Glucerna Shake 120 ML LIQUID PO (21:21)
[2018-09-03] MEDS: Atorvastatin Calcium 20 MG Tablet PO (21:22)
[2018-09-03] MEDS: Pramipexole Di-HCl 0.5 MG Tablet PO (21:23)
[2018-09-03] MEDS: Zolpidem Tartrate 5 MG Tablet PO (21:24)
[2018-09-03] MEDS: Ondansetron ODT 4 MG Tablet 8 MG PO (21:26)
[2018-09-03] MEDS: Linezolid 600 MG Tablet PO (21:32)
[2018-09-03 21:51] LABS: Bedside Glucose 228 mg/dL (70-110)
[2018-09-03] MEDS: Carvedilol 3.125 MG TABLET PO (22:39)
[2018-09-03] MEDS: Insulin Lispro 100 UNIT/ML INSULN.PEN SC (22:39)
[2018-09-04 03:40] VITALS: BP 118/53; PULSE 80; RESP 18; TEMP 36.9; O2SAT 94
[2018-09-04] MEDS: Acetaminophen 325 MG Tablet 650 MG PO (03:55)
[2018-09-04] MEDS: Heparin Injection (Vial) 5,000 UNIT/ML VIAL 5000 UNIT SC (06:25)
[2018-09-04] MEDS: Levothyroxine 75 MCG Tablet PO (06:26)
[2018-09-04] MEDS: Nystatin Powder 15gm Bottle 1 APPLIC TOPICAL (06:26)
[2018-09-04] MEDS: Menthol/Lanolin/Calamine/Znox 113 GM Tube 1 APPLIC TOPICAL (06:27)
[2018-09-04 07:25] VITALS: O2SAT 96
[2018-09-04 08:05] LABS: Bedside Glucose 90 mg/dL (70-110)
[2018-09-04] MEDS: Aspirin 81 MG TAB.CHEW PO (08:45)
[2018-09-04] MEDS: Allopurinol 100 MG Tablet PO (08:45)
[2018-09-04] MEDS: Carvedilol 3.125 MG TABLET PO (08:45)
[2018-09-04] MEDS: Pregabalin 75 MG Capsule 225 MG PO (08:46)
[2018-09-04] MEDS: lamoTRIgine 100 MG Tablet PO (08:46)
[2018-09-04] MEDS: guaiFENesin 1,200 MG Tablet 1200 MG PO (08:46)
[2018-09-04] MEDS: Linezolid 600 MG Tablet PO (08:47)
[2018-09-04] MEDS: Montelukast 10 MG Tablet PO (08:47)
[2018-09-04 09:11] VITALS: PULSE 76
[2018-09-04 09:17] VITALS: BP 118/58; PULSE 76; RESP 18; TEMP 36.6; O2SAT 97
--- NOTE | 2018-09-04 09:54 | DCINST_ITS ---
- Discharge Diagnoses Current Active Problems: Current Active and Chronic Problems (Last Reviewed 08/31/18 @ 23:19 by Jacques Santos MD) Hyperkalemia (Acute) Cystitis (Acute) SANGEETHA (acute kidney injury) (Acute) Septic shock (Acute) You will use the following diet at home:: Calorie/Carbohydrate Controlled (specify 1200, 1400, etc) Discharge Activity: Return to Normal Activity, May not drive while taking narcotic pain medications. Allergies/Adverse Reactions: Allergies ciprofloxacin [From Cipro] Allergy (Verified 08/31/18 18:46) Shortness of breath ciprofloxacin HCl [From Cipro] Allergy (Verified 08/31/18 18:46) Shortness of breath cyclobenzaprine [From Flexeril] Allergy (Verified 08/31/18 18:46) Rash cyclobenzaprine HCl [From Flexeril] Allergy (Verified 08/31/18 18:46) Rash ketorolac tromethamine [From Toradol] Allergy (Verified 08/31/18 18:46) Chest tightness sulfamethoxazole [From Bactrim] Allergy (Verified 08/31/18 18:46) Itching trimethoprim [From Bactrim] Allergy (Verified 08/31/18 18:46) Itching metformin Adverse Reaction (Verified 08/31/18 18:46) Other headache valacyclovir HCl [From Valtrex] Adverse Reaction (Verified 08/31/18 18:46) Other Medications to take at Discharge Aspirin [Aspirin, Baby] 81 mg PO DAILY 05/07/16 Montelukast [Singulair] 10 mg PO DAILY 05/07/16 Ropinirole HCl [Requip] 1 mg PO QHS 05/07/16 Pregabalin [Lyrica] 150 mg PO BID 02/25/17 allopurinol 100 mg tablet 100 mg PO QDAY 03/24/18 lamotrigine 100 mg tablet 100 mg PO BID 03/24/18 levothyroxine 75 mcg capsule 75 mcg PO QDAY 03/24/18 simvastatin 40 mg tablet 40 mg PO QPM 03/24/18 Ondansetron [Zofran] 8 mg PO Q6H PRN PRN 05/23/18 valsartan 80 mg tablet 80 mg PO DAILY 06/26/18 carvedilol 3.125 mg tablet 3.125 mg PO BID #180 tab 08/14/18 Benzonatate [Tessalon Perle] 200 mg PO TID PRN PRN #20 cap 08/17/18 proMETHazine tablet [Phenergan tablet] 25 mg PO Q6H PRN PRN #10 tab 08/17/18 Naloxegol Oxalate [Movantik] 12.5 mg PO QHS 08/19/18 Insulin Degludec [Tresiba Flextouch U-200] 150 unit SQ DAILY 08/31/18 Insulin Regular, Human [Humulin R] 20 unit SQ TID 08/31/18 Nystatin Powder [Mycostatin Powder] 1 applic TOPICAL TID 08/31/18 Milk of Magnesia 30 ml PO DAILY PRN 09/01/18 Glucerna Shake 120 ml PO 4X/DAY liquid 09/04/18 Guaifenesin [Mucinex] 1,200 mg PO BID #14 tab 09/04/18 Haloperidol Lactate 1 mg PO TID PRN PRN #14 udc 09/04/18 Linezolid [Zyvox] 600 mg PO BID #14 tab 09/04/18 Oxycodone HCl/Acetaminophen [Percocet 5/325] 1 tab PO Q6H PRN PRN 5 Days #14 tab 09/04/18 The following prescriptions were given: Guaifenesin [Mucinex] 1,200 mg PO BID #14 tab Haloperidol Lactate 1 mg PO TID PRN PRN #14 udc PRN Reason: NAUSEA/EMESIS Linezolid [Zyvox] 600 mg PO BID #14 tab Oxycodone HCl/Acetaminophen [Percocet 5/325] 1 tab PO Q6H PRN PRN 5 Days #14 tab PRN Reason: Pain Primary Care Physician: Devan Parks MD [Primary Care Provider] - Please follow up with your Primary Care Physician in: in 5- 7 adys Test Results: Test results from this visit will be discussed in further detail at your follow- up appointment, if applicable. Proposed Discharge Date: 09/04/18
--- NOTE | 2018-09-04 09:54 | PCM.TXEXTCAR ---
- Diet 09/03/18 15:55 Carb [Diet: Carbohydrate Controlled] Is pt able to select menu?: Yes Diet Comments: no concentrated sweets, no sugared pop - Routine Orders/Code Status Code Status: Full Code - Wound(s) Rt Buttock 1 Wound Type: Pressure Injury Rt Buttock 2 Wound Type: Pressure Injury Cleft Wound Type: Pressure Injury Rt abd fold Wound Type: Excoriation Rt breast Wound Type: Excoriation panis Wound Type: Pressure Injury right groin/top of thigh Wound Type: Pressure Injury - Therapies Physical Therapy: Eval and Treat Occupational Therapy: Eval and Treat - Allergies/Procedures Done in Hospital Allergies/Adverse Reactions: Allergies ciprofloxacin [From Cipro] Allergy (Verified 08/31/18 18:46) Shortness of breath ciprofloxacin HCl [From Cipro] Allergy (Verified 08/31/18 18:46) Shortness of breath cyclobenzaprine [From Flexeril] Allergy (Verified 08/31/18 18:46) Rash cyclobenzaprine HCl [From Flexeril] Allergy (Verified 08/31/18 18:46) Rash ketorolac tromethamine [From Toradol] Allergy (Verified 08/31/18 18:46) Chest tightness sulfamethoxazole [From Bactrim] Allergy (Verified 08/31/18 18:46) Itching trimethoprim [From Bactrim] Allergy (Verified 08/31/18 18:46) Itching metformin Adverse Reaction (Verified 08/31/18 18:46) Other headache valacyclovir HCl [From Valtrex] Adverse Reaction (Verified 08/31/18 18:46) Other - Type of Care/Length of Stay Estimated LOS: Convalescent Care Less Than 30 days Type of Care Needed: Skilled Rehab Potential: Good Prognosis: Good - Additional Orders/Day of Discharge Day of Discharge: 09/04/18 - Dietary and Speech Recommendations Dietitian Recommendations/Changes: Rec diet change to 1800 brain Cardiac/low sodium w/ fluid restriction as indicated. Will continue to provide glucerna shake w/ medpass for increased nutrition if consumed d/t hx poor po intake and skin status. - Follow Up Care Primary Care Physician: Devan Parks MD [Primary Care Provider] - Please follow up with your Primary Care Physician in: in 5- 7 adys
--- NOTE | 2018-09-04 09:56 | CASEMGMT ---
Addendum entered by Velma Edmondson 09/04/18 12:37: SW received a message from Carley at [facility] that they can take pt, nursing can see tomorrow and PT/OT can see pt on Saturday. Pt asked to speak w/SW. Pt asked what is going on w/insurance. SW explained that we have not yet heard from insurance regarding returning to [facility]. SW explained to pt if she feels she can manage at home, [facility] can see her tomorrow for nursing and Saturday for PT/OT. SW explained we can set this up and cancel the alf referral. Pt would like to go home and does feel she can manage at home, would like to go home w/home health. SW explained will let the doctor and nurse know, let home health know, let [facility] know, and she can go home today. Pt agreeable. SW called [facility], explained pt has decided to go home. Maria De Jesus at [facility] anticipated pt was going to be denied by insurance to return anyway. AJ called [facility], left a message for Carley letting her know pt will go home today. Order for home health placed. SW texted physician to let him know, and let pt's RN know. No further needs, pt home today w/[facility], pt's sister is coming to pick her up soon as per pt. ARGENTINA Brownlee, OPERATIONAL RISK ANALYST Original Note: SW received a message from Maria De Jesus at [facility] inquiring about antibiotics and requesting PT/OT updates. SW spoke w/physician, IV antibiotics are not needed. SW faxed Maria De Jesus PT/OT updates and let her know in a voicemail that no IV antibiotics will be needed. AJ spoke w/pt, explained that the physician feels she is ready for discharge. Pt states understanding. SW explained that she may be denied going back to SNF. Pt is agreeable to go home if this happens and feels she can manage at home. Pt is agreeable to a home health referral. Pt has never had home health before, has no preference for agency. SW explained will make a referral to [facility], and will let her know for certain as soon as this SW hears from [facility] regarding whether or not pt is approved for more time at [facility], or will go home. SW let pt know this will likely happen today. Pt states understanding, in agreement with plan of home w/home health if alf is denied. SW did call [facility] and left a message for Carley inquiring if they can take this pt for PT/OT and nursing. AJ will continue to follow. ARGENTINA Brownlee, OPERATIONAL RISK ANALYST
--- NOTE | 2018-09-04 09:57 | PCM.PN.HOSP ---
Patient Problems: Active and Suspected Problems (Last Reviewed 08/31/18 @ 23:19 by Jacques Santos MD) Hyperkalemia (Acute) Cystitis (Acute) SANGEETHA (acute kidney injury) (Acute) Septic shock (Acute) Subjective: Seen clinical condition improved. Plan will be for patient to be discharged home today on Zyvox for 1 week Objective: GENERAL: not in distress HEENT: Atraumatic; moist oral mucosa EYES; Anicteric, Normal Conjunctiva NECK; supple, normal thyroid, RESPIRATORY: Diminished to auscultation bilaterally, CARDIOVASCULAR: Regular S1 S2, GI: soft, non-tender, normoactive bowel sounds, : No Renal angle tenderness; EXTREMITIES: No edema, no clubbing, MUSCULOSKELETAL: No Joint Tenderness; NEURO: no lateralizing signs. SKIN: No Rash PSYCH; flat affect Vitals/I&O's: Vital Signs Temp Pulse Resp BP Pulse Ox 97.8 F 76 18 118/58 L 97 09/04/18 09:17 09/04/18 09:17 09/04/18 09:17 09/04/18 09:17 09/04/18 09:17 Oxygen Flow Rate (L/min) 2 Oxygen Delivery Method Room Air Weight: 123 kg Body Mass Index (BMI) 44.6 Finger Stick Blood Glucose 279 Intake and Output for Last 24 Hours 09/02/18 09/03/18 09/04/18 23:59 23:59 23:59 Intake Total 480 / 480 574 / 574 Output Total 1600 / 1600 1000 / 1000 Balance -1120 / -1120 -426 / -426 Microbiology Past 72 Hours 08/31/18 20:00 Blood Culture (Wb) - Anticubital Right Bacteria Detection (PCR) - Final Coag Negative Staph 08/31/18 20:00 Blood Culture (Wb) - Anticubital Right Blood Culture - Preliminary Coag Negative Staph 08/31/18 19:45 Urine Catheter - Robb Urine Culture - Final Enterococcus faecium 08/31/18 20:00 Blood Culture (Wb) - Anticubital Right Blood Culture - Preliminary No growth in 48 hours. Laboratory Results 09/03/18 11:31: POC Glucose 275 H 09/03/18 16:30: POC Glucose 203 H 09/03/18 21:10: POC Glucose 228 H 09/04/18 07:55: POC Glucose 90 Current Medications Acetaminophen (Tylenol) 650 mg PO Q6H PRN PRN PRN Reason: PAIN/FEVER > 100.4 Last Admin: 09/04/18 03:55 Dose: 650 mg [facility] Last Admin: 09/04/18 08:45 Dose: 100 mg Aspirin (Aspirin, Baby) 81 mg PO DAILYCM [facility] Last Admin: 09/04/18 08:45 Dose: 81 mg Atorvastatin Calcium (Lipitor) 20 mg PO QHS [facility] Last Admin: 09/03/18 21:22 Dose: 20 mg Benzonatate (Tessalon Perle) 200 mg PO TID PRN PRN PRN Reason: COUGH Last Admin: 09/02/18 14:22 Dose: 200 mg Calamine/Phenol (Calmoseptine Ointment) 1 applic TOPICAL TID [facility]; Protocol Last Admin: 09/04/18 06:27 Dose: 1 applicatio Carvedilol (Coreg) 3.125 mg PO BID [facility] Last Admin: 09/04/18 08:45 Dose: 3.1249 mg Dextrose (D50w Syringe) 0 gm IV X1 PRN; Protocol PRN Reason: Hypoglycemia Last Admin: 08/31/18 22:05 Dose: 25 gm Glucagon () 1 mg IM .X1 PRN PRN Reason: Hypoglycemia Guaifenesin (Mucinex) 1,200 mg PO BID [facility] Last Admin: 09/04/18 08:46 Dose: 1,200 mg Haloperidol Lactate (Haloperidol Lactate) 1 mg PO TID PRN PRN PRN Reason: NAUSEA/EMESIS Last Admin: 09/03/18 18:10 Dose: 1 mg Heparin Sodium (Porcine) (Heparin Na) 5,000 unit SC Q8 [facility] Last Admin: 09/04/18 06:25 Dose: 5,000 unit Sodium Chloride () 250 mls @ 15 mls/hr IV .[id number] PRN PRN Reason: SALINE FLUSH Last Admin: 09/02/18 21:49 Dose: 15 mls/hr Insulin Glargine (Lantus (Bkc)) 150 units SC DAILY [facility] Insulin Human Lispro (Humalog Kwikpen (Bkc)) 0 unit SC ACHS [facility]; Protocol Last Admin: 09/04/18 08:04 Dose: Not Given Insulin Human Lispro (Humalog Kwikpen (Bkc)) 20 unit SC 0800,1200,1700 [facility] Lamotrigine (Lamictal) 100 mg PO BID [facility] Last Admin: 09/04/18 08:46 Dose: 100 mg Levothyroxine Sodium (Synthroid) 75 mcg PO DAILY@0600 [facility] Last Admin: 09/04/18 06:26 Dose: 75 mcg Linezolid (Zyvox) 600 mg PO BID [facility] Last Admin: 09/04/18 08:47 Dose: 600 mg Magnesium Hydroxide (Milk Of Magnesia) 30 ml PO DAILY PRN PRN PRN Reason: Constipation Montelukast Sodium (Singulair) 10 mg PO DAILY [facility] Last Admin: 09/04/18 08:47 Dose: 10 mg Nutritional Formula (Lactose Free) (Glucerna Shake) 120 ml PO 4X/DAY [facility] Last Admin: 09/04/18 08:46 Dose: Not Given Nystatin (Mycostatin Powder) 1 applic TOPICAL TID [facility]; Protocol Last Admin: 09/04/18 06:26 Dose: 1 applicatio Ondansetron HCl (Zofran Odt) 8 mg PO Q8H PRN PRN PRN Reason: nausea, emesis Last Admin: 09/03/18 21:26 Dose: 8 mg Pramipexole Dihydrochloride (Mirapex) 0.5 mg PO QHS [facility] Last Admin: 09/03/18 21:23 Dose: 0.5 mg Pregabalin (Lyrica) 225 mg PO BID [facility] Last Admin: 09/04/18 08:46 Dose: 225 mg Senna/Docusate Sodium (Senokot-S, Huma-Colace) 2 tablet PO BID [facility] Last Admin: 09/04/18 08:47 Dose: Not Given Sodium Chloride () 5 - 15 ml IV UD PRN PRN Reason: SALINE FLUSH Last Admin: 09/02/18 21:42 Dose: 10 ml Zolpidem Tartrate (Ambien (Generic)) 5 mg PO QHS PRN PRN PRN Reason: SLEEP Last Admin: 09/03/18 21:24 Dose: 5 mg Medical Necessity - Tobacco Use Smoking Status: Never smoker Assessment/Plan All Active Problems (Last Reviewed 08/31/18 @ 23:19 by Jacques Santos MD) Community acquired pneumonia (Resolved) Hyperkalemia (Acute) Cystitis (Acute) SANGEETHA (acute kidney injury) (Acute) Septic shock (Acute) SOB (shortness of breath) (Resolved) Sepsis (Resolved) Chest pain (Resolved) Community acquired pneumonia (Resolved) History of pulmonary embolus (PE) (Resolved) Hypotension (Resolved) Intractable vomiting with nausea (Resolved) Pulmonary embolism (Resolved) Patient is a 62-year-old lady recently discharged from the hospital following admission for community-acquired pneumonia as well as upper respiratory tract infection with human Alvarado pneumo virus [facility]. Patient was brought back to the emergency department on account of increasing generalized weakness as well as abnormal electrolyte with elevated potassium 6.2 creatinine of 3.05 patient creatinine on discharge on 07/22/2019 was 1.04. Patient in addition was found to have abnormal urinalysis consistent with acute cystitis. Patient was found to be relatively hypotensive in the ED did not respond to fluid resuscitation had to be started on pressors and admitted to the intensive care unit 1. Septic shock; from urinary tract infection (acute cystitis) enterococcus species. And admitted to the intensive care unit was started on pressors in addition to broad-spectrum antibiotic therapy with Rocephin cultures sent with plans to adjust antibiotics based on culture result urine culture still pending. Blood cultures came back positive for coagulase negative staph which was thought to be contaminant. 2. Recent hospitalization for ion for community-acquired pneumonia as well as upper respiratory tract infection with human Alvarado pneumo virus 3. Acute kidney injury suspected ATN from patient septic shock patient being resuscitated with IV fluids with monitoring of electrolyte and kidney function continues to improve. 4. Hyperkalemia secondary to patient acute kidney injury 5. History of Takotsubo's cardiomyopathy therefore not repeat echo obtained on 07/04/2018 was 60% 6. Previous history of embolism involving the proximal right lower lobe artery patient was previously treated with Xarelto 7. Diabetes mellitus type II applications including gastroparesis patient is a long acting insulin. Also placed on Accu-Cheks before meals and at bedtime, sliding scale insulin 8. Morbid obesity with BMI of with BMI of 45.1 weight reduction advised 9. Hypertension-blood pressure controlled, home medications continued with dose adjustment as needed 10. Dyslipidemia-patient is on statin therapy, continued at home dose 11. Paroxysmal A. fib rate controlled patient was previously on systemic anticoagulation discontinued sometime in 2017 reason for discontinuation not clear from documentation 12. Seizure disorder is on lamotrigine 13. Deconditioned state requested for physical outpatient therapy assessment and treatment 14. Hypothyroidism-patient is on levothyroxine home dose continued 15. DVT prophylaxis SC heparin 16. Chronic pain syndrome 17. Chronic constipation Active Medications Acetaminophen (Tylenol) 650 mg PO Q6H PRN PRN PRN Reason: PAIN/FEVER > 100.4 [facility] Aspirin (Aspirin, Baby) [facility] Atorvastatin Calcium (Lipitor) 20 mg PO QHS [facility] Last Admin: 08/31/18 22:33 Dose: 20 mg Benzonatate (Tessalon Perle) 200 mg PO TID PRN PRN PRN Reason: COUGH Dextrose (D50w Syringe) 0 gm IV X1 PRN; Protocol PRN Reason: Hypoglycemia Last Admin: 08/31/18 22:05 Dose: 25 gm Glucagon () 1 mg IM .X1 PRN PRN Reason: Hypoglycemia Heparin Sodium (Porcine) (Heparin Na) 5,000 unit SC Q8 [facility] Last Admin: 09/01/18 05:37 Dose: 5,000 unit Sodium Chloride () 250 mls @ 15 mls/hr IV .[id number] PRN PRN Reason: SALINE FLUSH Last Admin: 09/01/18 06:59 Dose: 15 mls/hr Norepinephrine Bitartrate 8 mg (/ Dextrose) 258 mls @ 9.68 mls/hr IV .[id number] [facility] Last Admin: 08/31/18 22:58 Dose: 9.68 mls/hr Dextrose/Sodium Chloride () 1,000 mls @ 75 mls/hr IV .[id number] [facility] Last Admin: 08/31/18 22:55 Dose: 75 mls/hr Ceftriaxone Sodium 2 gm/ (Sodium Chloride) 50 mls @ 100 mls/hr IV Q24@2200 [facility] Lamotrigine (Lamictal) 100 mg PO BID [facility] Last Admin: 08/31/18 22:33 Dose: 100 mg Levothyroxine Sodium (Synthroid) 75 mcg PO DAILY@0600 [facility] Last Admin: 09/01/18 06:58 Dose: Not Given Magnesium Hydroxide (Milk Of Magnesia) 30 ml PO DAILY PRN PRN PRN Reason: Constipation Montelukast Sodium (Singulair) 10 mg PO DAILY [facility] Non-Formulary Medication (Naloxegol Oxalate [Movantik]) 12.5 mg PO QHS [facility] Nystatin (Mycostatin Powder) 1 applic TOPICAL TID [facility]; Protocol Last Admin: 09/01/18 05:37 Dose: 1 applicatio Ondansetron HCl (Zofran) 8 mg PO Q6H PRN PRN PRN Reason: NAUSEA Pramipexole Dihydrochloride (Mirapex) 0.5 mg PO QHS [facility] Last Admin: 08/31/18 22:33 Dose: 0.5 mg Sodium Chloride () 5 - 15 ml IV UD PRN PRN Reason: SALINE FLUSH Last Admin: 09/01/18 06:59 Dose: 10 ml Clinical Impression(s) from Imaging Studies Chest X-Ray 08/31/18 19:14 IMPRESSION: No acute thoracic pathology. Electronically Signed: Devan Wang, at 19:46 EST Tel , Service support , Code Visit Inpatient E&M: 61864 Subs Hosp L2
--- NOTE | 2018-09-04 09:59 | DS.PCM_ITS ---
Discharge Date and Diagnosis - Problem List Patient Problems: Active and Suspected Problems (Last Reviewed 08/31/18 @ 23:19 by Jacques Santos MD) Hyperkalemia (Acute) Cystitis (Acute) SANGEETHA (acute kidney injury) (Acute) Septic shock (Acute) Date of Admission: 08/31/18 Date of Discharge: 09/04/18 - Primary Discharge Diagnosis Active and Suspected Problems (Last Reviewed 08/31/18 @ 23:19 by Jacques Santos MD) Hyperkalemia (Acute) Cystitis (Acute) SANGEETHA (acute kidney injury) (Acute) Septic shock (Acute) - Secondary Discharge Diagnosis Chronic Problems (Last Reviewed 08/31/18 @ 23:19 by Jacques Santos MD) Congestive heart failure (Chronic) Type 2 diabetes mellitus (Chronic) 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) Diabetic gastroparesis (Chronic) Weakness of both lower extremities (Chronic) GERD (gastroesophageal reflux disease) (Chronic) Seizure disorder (Chronic) Chronic anticoagulation (Chronic) Paroxysmal atrial fibrillation (Chronic) Chronic pain syndrome (Chronic) DM2 (diabetes mellitus, type 2) (Chronic) Takotsubo cardiomyopathy (Chronic) Iron deficiency anemia (Chronic) Diverticulitis (Chronic) Depression (Chronic) Morbid obesity with BMI of 40.0-44.9, adult (Chronic) HLD (hyperlipidemia) (Chronic) Benign essential HTN (Chronic) Hospital Course and Treatment Imaging Results: Clinical Impression(s) from Imaging Studies Chest X-Ray 08/31/18 19:14 IMPRESSION: No acute thoracic pathology. Electronically Signed: Devan Felipe, at 19:46 EST Tel , Service support , Microbiology 08/31/18 20:00 Blood Culture (Wb) - Anticubital Right Bacteria Detection (PCR) - Final Coag Negative Staph 08/31/18 20:00 Blood Culture (Wb) - Anticubital Right Blood Culture - Preliminary Coag Negative Staph 08/31/18 19:45 Urine Catheter - Robb Urine Culture - Final Enterococcus faecium 08/31/18 20:00 Blood Culture (Wb) - Anticubital Right Blood Culture - Preliminary No growth in 48 hours. Operations: None, - - EGD Summary of Care Provided: Patient is a 62-year-old lady recently discharged from the hospital following admission for community-acquired pneumonia as well as upper respiratory tract infection with human Alvarado pneumo virus discharged to [facility] facility. Patient was brought back to the emergency department on account of increasing generalized weakness as well as abnormal electrolyte with elevated potassium 6.2 creatinine of 3.05 patient creatinine on discharge on 07/22/2019 was 1.04. Patient in addition was found to have abnormal urinalysis consistent with acute cystitis. Patient was found to be relatively hypotensive in the ED did not respond to fluid resuscitation had to be started on pressors and admitted to the intensive care unit 1. Septic shock; from urinary tract infection (acute cystitis) enterococcus species. She was initially admitted to the intensive care unit was started on pressors in addition to broad-spectrum antibiotic therapy with Rocephin . Blood cultures came back positive for coagulase negative staph which was thought to be contaminant. She was discharged home on Zyvox based on sensitivity 2. Recent hospitalization for ion for community-acquired pneumonia as well as upper respiratory tract infection with human Alvarado pneumo virus 3. Acute kidney injury suspected ATN from patient septic shock patient being resuscitated with IV fluids with monitoring of electrolyte and kidney function continues to improve. 4. Hyperkalemia secondary to patient acute kidney injury 5. History of Takotsubo's cardiomyopathy therefore not repeat echo obtained on 07/04/2018 was 60% 6. Previous history of embolism involving the proximal right lower lobe artery patient was previously treated with Xarelto 7. Diabetes mellitus type II applications including gastroparesis patient is a long acting insulin. Also placed on Accu-Cheks before meals and at bedtime, sliding scale insulin 8. Morbid obesity with BMI of with BMI of 45.1 weight reduction advised 9. Hypertension-blood pressure controlled, home medications continued with dose adjustment as needed 10. Dyslipidemia-patient is on statin therapy, continued at home dose 11. Paroxysmal A. fib rate controlled patient was previously on systemic anticoagulation discontinued sometime in 2017 reason for discontinuation not clear from documentation 12. Seizure disorder is on lamotrigine 13. Deconditioned state requested for physical outpatient therapy assessment and treatment 14. Hypothyroidism-patient is on levothyroxine home dose continued 15. DVT prophylaxis SC heparin 16. Chronic pain syndrome 17. Chronic constipation Patient Problems: Active and Suspected Problems (Last Reviewed 08/31/18 @ 23:19 by Jacques Santos MD) Hyperkalemia (Acute) Cystitis (Acute) SANGEETHA (acute kidney injury) (Acute) Septic shock (Acute) Objective: GENERAL: Appears comfortable at rest HEENT: Atraumatic; moist oral mucosa EYES; Anicteric, Normal Conjunctiva NECK; supple, normal thyroid, RESPIRATORY: Diminished to auscultation bilaterally, CARDIOVASCULAR: Regular S1 S2, GI: soft, non-tender, normoactive bowel sounds, : No Renal angle tenderness; EXTREMITIES: No edema, no clubbing, MUSCULOSKELETAL: No Joint Tenderness; NEURO: no lateralizing signs. SKIN: No Rash PSYCH; flat affect - Physical Exam Vital Signs Temp Pulse Resp BP Pulse Ox 97.8 F 76 18 118/58 L 97 09/04/18 09:17 09/04/18 09:17 09/04/18 09:17 09/04/18 09:17 09/04/18 09:17 Oxygen Flow Rate (L/min) 2 Oxygen Delivery Method Room Air Weight: 123 kg Body Mass Index (BMI) 44.6 Finger Stick Blood Glucose 279 Intake and Output for Last 24 Hours 09/02/18 09/03/18 09/04/18 23:59 23:59 23:59 Intake Total 480 / 480 574 / 574 Output Total 1600 / 1600 1000 / 1000 Balance -1120 / -1120 -426 / -426 Microbiology Past 72 Hours 08/31/18 20:00 Bacteria Detection (PCR) - Final Blood Culture (Wb) - Anticubital Right Coag Negative Staph Blood Culture - Preliminary Coag Negative Staph 08/31/18 19:45 Urine Culture - Final Urine Catheter - Robb Enterococcus faecium 08/31/18 20:00 Blood Culture - Preliminary Blood Culture (Wb) - Anticubital Right No growth in 48 hours. POC Glucose 09/04/18 09/03/18 09/03/18 07:55 21:10 16:30 POC Glucose 90 228 H 203 H 09/03/18 11:31 POC Glucose 275 H Discharge Diet: No Restrictions Discharge Activity: Return to Normal Activity, May not drive while taking narcotic pain medications. Home Medications: Medications to take at Discharge Aspirin [Aspirin, Baby] 81 mg PO DAILY 05/07/16 Montelukast [Singulair] 10 mg PO DAILY 05/07/16 Ropinirole HCl [Requip] 1 mg PO QHS 05/07/16 Pregabalin [Lyrica] 150 mg PO BID 02/25/17 allopurinol 100 mg tablet 100 mg PO QDAY 03/24/18 lamotrigine 100 mg tablet 100 mg PO BID 03/24/18 levothyroxine 75 mcg capsule 75 mcg PO QDAY 03/24/18 simvastatin 40 mg tablet 40 mg PO QPM 03/24/18 Ondansetron [Zofran] 8 mg PO Q6H PRN PRN 05/23/18 valsartan 80 mg tablet 80 mg PO DAILY 06/26/18 carvedilol 3.125 mg tablet 3.125 mg PO BID #180 tab 08/14/18 Benzonatate [Tessalon Perle] 200 mg PO TID PRN PRN #20 cap 08/17/18 proMETHazine tablet [Phenergan tablet] 25 mg PO Q6H PRN PRN #10 tab 08/17/18 Naloxegol Oxalate [Movantik] 12.5 mg PO QHS 08/19/18 Insulin Degludec [Tresiba Flextouch U-200] 150 unit SQ DAILY 08/31/18 Insulin Regular, Human [Humulin R] 20 unit SQ TID 08/31/18 Nystatin Powder [Mycostatin Powder] 1 applic TOPICAL TID 08/31/18 Milk of Magnesia 30 ml PO DAILY PRN 09/01/18 Glucerna Shake 120 ml PO 4X/DAY liquid 09/04/18 Guaifenesin [Mucinex] 1,200 mg PO BID #14 tab 09/04/18 Haloperidol Lactate 1 mg PO TID PRN PRN #14 udc 09/04/18 Linezolid [Zyvox] 600 mg PO BID #14 tab 09/04/18 Oxycodone HCl/Acetaminophen [Percocet 5/325] 1 tab PO Q6H PRN PRN 5 Days #14 tab 09/04/18 Following Prescrptions Were Given to Patient: Guaifenesin [Mucinex] 1,200 mg PO BID #14 tab Haloperidol Lactate 1 mg PO TID PRN PRN #14 udc PRN Reason: NAUSEA/EMESIS Linezolid [Zyvox] 600 mg PO BID #14 tab Oxycodone HCl/Acetaminophen [Percocet 5/325] 1 tab PO Q6H PRN PRN 5 Days #14 tab PRN Reason: Pain Primary Care Physician: Devan Parks MD [Primary Care Provider] - Please follow up with your Primary Care Physician in: in 5- 7 days Disposition: Halfway facility Minutes spent on discharge:: 45 Medical Necessity - Tobacco Use Smoking Status: Never smoker Meaningful Use Info Meaningful Use Diagnoses (Choose all that apply): None applicable Code Visit Inpatient E&M: 81955 Disch Hosp
[2018-09-04 10:25] LABS: Anion Gap 9 (5-15); BUN 9 mg/dL (7-18); BUN/Creat Ratio 8.1 RATIO (10-20); Chloride 100 mmol/L (98-107); Creatinine, Serum 1.11 mg/dL (0.55-1.02); EST Glomerular Filtration Rate 53 mL/min (>60); Est Glom Filt Rate - Afr Amer 64 mL/min (>60); Estimated Creatinine Clearance 47.93 ml/min; Glucose 157 mg/dL (74-106); Potassium 3.9 mmol/L (3.5-5.1); Sodium Level 137 mmol/L (136-145)
--- NOTE | 2018-09-04 10:40 | PCM.HP.ID ---
Problem List (1) Septic shock Status: Acute Reason for Consult: septic shock Consulted by: Dr. Huitron History of Present Illness: The patient is a 63 year old F who presented from [facility] with hyperkalemia. She does not recall what happened prior to coming to hospital. Was admitted in July with pneumonia. Denies any dysuria, abd pain, fever, no n/v/d, urine changes. Admitted to icu on pressors, ceftriaxone. Now much better, out of icu, ucx with enterococcus, linezolid started yesterday. Full ROS performed and neg except as noted above. 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) Diabetic gastroparesis (Chronic) Weakness of both lower extremities (Chronic) GERD (gastroesophageal reflux disease) (Chronic) Seizure disorder (Chronic) Chronic anticoagulation (Chronic) Paroxysmal atrial fibrillation (Chronic) Chronic pain syndrome (Chronic) DM2 (diabetes mellitus, type 2) (Chronic) Takotsubo cardiomyopathy (Chronic) Iron deficiency anemia (Chronic) Diverticulitis (Chronic) Depression (Chronic) Morbid obesity with BMI of 40.0-44.9, adult (Chronic) HLD (hyperlipidemia) (Chronic) Benign essential HTN (Chronic) Allergies/Adverse Reactions: Allergies ciprofloxacin [From Cipro] Allergy (Verified 08/31/18 18:46) Shortness of breath ciprofloxacin HCl [From Cipro] Allergy (Verified 08/31/18 18:46) Shortness of breath cyclobenzaprine [From Flexeril] Allergy (Verified 08/31/18 18:46) Rash cyclobenzaprine HCl [From Flexeril] Allergy (Verified 08/31/18 18:46) Rash ketorolac tromethamine [From Toradol] Allergy (Verified 08/31/18 18:46) Chest tightness sulfamethoxazole [From Bactrim] Allergy (Verified 08/31/18 18:46) Itching trimethoprim [From Bactrim] Allergy (Verified 08/31/18 18:46) Itching metformin Adverse Reaction (Verified 08/31/18 18:46) Other headache valacyclovir HCl [From Valtrex] Adverse Reaction (Verified 08/31/18 18:46) Other Home Medications: Ambulatory Orders Medication Instructions Recorded Aspirin [Aspirin, Baby] 81 mg PO DAILY 05/07/16 Montelukast [Singulair] 10 mg PO DAILY 05/07/16 Ropinirole HCl [Requip] 1 mg PO QHS 05/07/16 Pregabalin [Lyrica] 150 mg PO BID 02/25/17 allopurinol 100 mg tablet 100 mg PO QDAY 03/24/18 lamotrigine 100 mg tablet 100 mg PO BID 03/24/18 levothyroxine 75 mcg capsule 75 mcg PO QDAY 03/24/18 simvastatin 40 mg tablet 40 mg PO QPM 03/24/18 Ondansetron [Zofran] 8 mg PO Q6H PRN PRN 05/23/18 valsartan 80 mg tablet 80 mg PO DAILY 06/26/18 carvedilol 3.125 mg tablet 3.125 mg PO BID #180 tab 08/14/18 Benzonatate [Tessalon Perle] 200 mg PO TID PRN PRN #20 cap 08/17/18 proMETHazine tablet [Phenergan 25 mg PO Q6H PRN PRN #10 tab 08/17/18 tablet] Naloxegol Oxalate [Movantik] 12.5 mg PO QHS 08/19/18 Insulin Degludec [Tresiba 150 unit SQ DAILY 08/31/18 Flextouch U-200] Insulin Regular, Human [Humulin R] 20 unit SQ TID 08/31/18 Nystatin Powder [Mycostatin Powder] 1 applic TOPICAL TID 08/31/18 Milk of Magnesia 30 ml PO DAILY PRN 09/01/18 Glucerna Shake 120 ml PO 4X/DAY liquid 09/04/18 Guaifenesin [Mucinex] 1,200 mg PO BID #14 tab 09/04/18 Haloperidol Lactate 1 mg PO TID PRN PRN #14 udc 09/04/18 Linezolid [Zyvox] 600 mg PO BID #14 tab 09/04/18 Oxycodone HCl/Acetaminophen 1 tab PO Q6H PRN PRN 5 Days #14 tab 09/04/18 [Percocet 5/325] - Social History SMOKING STATUS:: Never smoker Vital Signs Temp Pulse Resp BP Pulse Ox 97.8 F 76 18 118/58 L 97 09/04/18 09:17 09/04/18 09:17 09/04/18 09:17 09/04/18 09:17 09/04/18 09:17 Oxygen Flow Rate (L/min) 2 Oxygen Delivery Method Room Air Weight: 123 kg Body Mass Index (BMI) 44.6 Finger Stick Blood Glucose 279 Microbiology Past 72 Hours 08/31/18 20:00 Bacteria Detection (PCR) - Final Blood Culture (Wb) - Anticubital Right Coag Negative Staph Blood Culture - Preliminary Coag Negative Staph 08/31/18 19:45 Urine Culture - Final Urine Catheter - Robb Enterococcus faecium 08/31/18 20:00 Blood Culture - Preliminary Blood Culture (Wb) - Anticubital Right No growth in 48 hours. Laboratory Tests Past 24 Hrs 09/04/18 09:56 Sodium 137 Potassium 3.9 Chloride 100 Carbon Dioxide 28.0 Anion Gap 9 BUN 9 Creatinine 1.11 H Estim Creat Clear Calc 47.93 Est GFR (MDRD) Af Amer 64 Est GFR (MDRD) Non-Af 53 L BUN/Creatinine Ratio 8.1 L Glucose 157 H Calcium 9.0 - Other Studies Radiology: [] reviewed Other Studies: [] Route of nutrition/ use of supplements: [] Nutritional Intake: [] IV Site: [] Robb Catheter: [] - Physical Exam General: Alert, Oriented x3, Cooperative, No apparent distress HEENT: Atraumatic, PERRLA, EOMI Neck: Supple, No Nodes Lungs: Clear to auscultation, Normal air movement Cardiovascular: Regular rate, Regular Rhythm Abdomen: Soft, Non Tender, Non-Distended Extremities: Edema Skin: No rashes IV Site: Peripheral, without redness Musculoskeletal: No Tenderness to Palpation of Joints or Extremities Neurological: Cranial nerves II-XII grossly intact - Assessment/Plan Antibiotics: [] Assessment/Plan: [] Active and Suspected Problems (Last Reviewed 08/31/18 @ 23:19 by Jacques Santos MD) Hyperkalemia (Acute) Cystitis (Acute) SANGEETHA (acute kidney injury) (Acute) Septic shock (Acute) septic shock with SANGEETHA related to enterococcus pyelonephritis - much improved, off pressors, out of icu, Cr much better. On linezolid, plan on 7 more days of treatment. Ok for d/c home. Will follow, thank you, d/w Dr. Huitron.
[2018-09-04] MEDS: Insulin Lispro 100 UNIT/ML INSULN.PEN SC (11:07)
[2018-09-04] MEDS: Haloperidol Lactate 10 MG/5 ML UDC PO (11:07)
[2018-09-04 11:15] LABS: Bedside Glucose 172 mg/dL (70-110)
--- NOTE | 2018-09-04 17:37 | CASEMGMT ---
RN RAISA NOTE: Call received from pt's sister, Linda, that she went to brain picker her Zyvox and that it was not covered by insurance. Call placed to [facility] Auth department @ and spoke with Stanford. Prior auth for Zyvox initiated. Reference # [id number]. Per Stanford, prior auth may take up to 72 hrs. Informed Stanford that pt has already been discharged and will need her next dose this tonight. Inquired about emergency fill and he states this medication does not allow for an emergency fill. Stanford states he will star this case as urgent and decision for prior auth will be made within a couple of hours. Call placed to Mayank @ [facility] retail pharmacy who states prior auth was obtained but pt's co-pay will be $278.89. Call placed to pt's sister, Linda. Linda states pt is with her now but that she is sleeping. Informed her of co-pay amt. Linda states She can't afford that. Explained to her about [facility] Prescription Drug Program and that medication cost will be covered but this can be used only one time a year. Linda states, we're going to have to do that now because she can't afford it. Asked Linda if she could inform pt of this as well and she stated she would. Call placed to Mayank @ [facility] retail pharmacy and he was made aware medication to be covered by the Prescription Drug Program. Form completed and faxed to [facility] retail pharmacy. Mayank states that since the retail pharmacy will be closing, medication can be picked up @ in-patient pharmacy this evening. Call placed back to Linda and she was made aware that Linezolid can be picked up at the in-pt pharmacy and it there will be no cost for the medication. Claribel JOHN RN CM
--- NOTE | 2018-09-05 09:34 | CASEMGMT ---
SW added SW and to have [facility] assess pt for services once home care is complete, to the home care order. SW called Harman in Home Health and left a message letting her know the above services were added. ARGENTINA Brownlee, SNUFF DRIER
--- NOTE | 2018-09-05 11:58 | CASEMGMT ---
ALMA KLINE DC Phone Call DC Date: 09/04/18 DC Disposition: Home to Sister's home with [facility] LACE/STRATA:02/12 DC Appointments made: yes Called, however no answer. ALMA KLINE spoke with Carley [facility]. She will be seeing pt today and will go over medications, instructions with her. Will defer call back. Suellen JOHN RN M
== END 2018-09-04 14:25 | disposition home health service (06) | DRG 871 ==
LOC: ED 19:09 → ICU 21:08 → MS2 09-02 15:23
PROVIDERS: Internal Medicine Critical Care Medicine; Admitting Provider Hospitalist; Emergency Provider Emergency Medicine; Family Provider Family Medicine; PCP Family Medicine; Referring Provider Hospitalist; Visit Provider Internal Medicine
DX: A41.81 Sepsis due to Enterococcus (principal); R65.21 Severe sepsis with septic shock; N17.0 Acute kidney failure with tubular necrosis; Z68.41 Body mass index [BMI] 40.0-44.9, adult; N30.00 Acute cystitis without hematuria; I51.81 Takotsubo syndrome; E87.5 Hyperkalemia; E66.01 Morbid (severe) obesity due to excess calories; Z86.711 Personal history of pulmonary embolism; E78.5 Hyperlipidemia, unspecified; G40.909 Epilepsy, unspecified, not intractable, without status epilepticus; G89.4 Chronic pain syndrome; K59.09 Other constipation; E11.43 Type 2 diabetes mellitus with diabetic autonomic (poly)neuropathy; K31.84 Gastroparesis; I48.0 Paroxysmal atrial fibrillation; I10 Essential (primary) hypertension; E03.9 Hypothyroidism, unspecified; G43.909 Migraine, unspecified, not intractable, without status migrainosus; M10.9 Gout, unspecified; G25.81 Restless legs syndrome; M79.7 Fibromyalgia; E11.40 Type 2 diabetes mellitus with diabetic neuropathy, unspecified; B95.2 Enterococcus as the cause of diseases classified elsewhere; Z79.891 Long term (current) use of opiate analgesic; Z79.4 Long term (current) use of insulin; Z79.899 Other long term (current) drug therapy
CPT/HCPCS: 36415; 36600; 51702; 71045; 80048; 81001; 82803; 82962; 83605; 83735; 85025; 87040; 87077; 87086; 87088; 87149; 87186; 93005; 94002; 94640; 97162; 97165; 97530; 97535; 97802; 99285; J7030; J7050; A4216; J0610; J0696; J7799

== ENCOUNTER 2018-09-17 18:41 | Inpatient (IN) | payer MEDICARE, SELFPAY ==
[2018-08-31 21:49] VITALS: BMI 44.6
[2018-09-17] VITALS (7 sets, daily range): BP systolic 106–147; BP diastolic 49–79; PULSE 60–90; RESP 14–23; TEMP 37.1–38.5; O2SAT 90–98; BMI 43.4; BMI 42.7; BMI 42.8
--- NOTE | 2018-09-17 19:00 | RAD_ITS ---
STUDY: X-RAY CHEST REASON FOR EXAM: Female, 63 years old. Lethargy TECHNIQUE: Single AP portable view of the chest. COMPARISON: 08/31/2018 FINDINGS: EKG leads overlie the chest The lungs are clear and expanded. There is no demonstrated pleural abnormality. Normal size heart. Normal mediastinum and judith. Normal visualized pulmonary arteries. There is atherosclerotic calcification of the aortic arch with tortuosity. There are diffuse degenerative changes of the visualized thoracic spine. Normal visualized ribs, clavicles, and shoulders. There is no demonstrated abnormality of the visualized soft tissue structures of the upper abdomen. RAD/Chest 1 View (Portable) IMPRESSION: No acute findings Electronically Signed: Chintan Steele MD at 19:22 EST , Service support ,
--- NOTE | 2018-09-17 19:00 | EKG12_ITS ---
Test Reason : FEVER Blood Pressure : / mmHG Vent. Rate : 084 BPM Atrial Rate : 084 BPM P-R Int : 158 ms QRS Dur : 090 ms QT Int : 388 ms P-R-T Axes : 013 -29 015 degrees QTc Int : 458 ms Normal sinus rhythm Normal ECG Confirmed by CAROLE VARGHESE MD ([id number]), senior editor MAIKEL MULLEN ([id number]) on 09/19/2018 3:14:01 PM Referred By: Fina Huertas Confirmed By:CAROLE VARGHESE MD
[2018-09-17 19:07] LABS: Absolute Lymphocyte Count 1.69 X10^3/ul (0.83-4.51); Absolute Neutrophil Count 5.3 X10^3/uL (2.0-7.7); Basophil# 0.02 X10^3/uL; Basophil% 0.3 % (0-1); Eosinophil# 0.02 X10^3/uL; Eosinophils% 0.3 % (0-5); Hematocrit 31.5 % (37-47); Hemoglobin 10.3 g/dl (12.0-15.0); Lymphocyte # 1.69 X10^3/ul (4.0); Lymphocyte % 21.4 % (19-41); Mean Corp Hgb Conc 32.7 g/gl (32-36); Mean Corpuscular Hgb 26.8 pg (27.0-32.0); Mean Corpuscular Volume 81.8 fL (81-99); Mean Platelet Vol. 8.6 fl (6.2-12.0); Monocyte% 11.4 % (0-10); Neutrophil # 5.26 X10^3/uL (2.7-7.7); Neutrophil % 66.3 % (47-70); Platelet Count 198 K/mm3 (150-450); RBC Distribution Width CV 17.4 % (11.6-14.6); RBC Distribution Width SD 51.5 fl (35.1-43.9); Red Blood Count 3.85 M/mm3 (4.2-5.4); White Blood Count 7.9 K/mm3 (4.4-11.0)
[2018-09-17 19:08] LABS: POSITIVE COUNT NO; POSITIVE DIFFERENTIAL NO; POSITIVE MORPHOLOGY NO
[2018-09-17 19:16] LABS: International Normalized Ratio 1.2
--- NOTE | 2018-09-17 19:16 | ED.VISSUMM ---
- ER Visit Summary Date of Service: 09/17/18 Chief Complaint: Fever History of Present Illness: The patient is a 63 F who presents with a fever that began yesterday but became worse today. Patient states her fever with 101 today. Patient has been having some nausea, vomiting, and diarrhea. Patient was recently admitted here and was discharged 13 days ago for sepsis due to urinary tract infection. Patient completed her course of antibiotics. Patient is currently on valacyclovir for shingles. Patient admits to a cough but denies any sputum production. Patient denies any chest pain or shortness of breath. Patient denies any dysuria or hematuria. Physical Examination: Vital signs showed a temperature of 101.3 and elevated respiratory rate of 23. Pulse oximeter is 90% on room air. Oral mucosa is pink and moist. Neck is supple. Trachea is midline. There is no JVD noted. Heart was regular rate and rhythm. Lungs were clear and equal bilaterally. There is adequate respiratory effort. Abdomen is soft. Bowel sounds are normal. There is no tenderness noted. Cranial nerves II through XII are intact. There are no focal motor or sensory deficits noted. The remaining physical exam is within normal limits. Test Results: EKG showed normal sinus rhythm with a rate of 84. There are no acute ST or T wave changes. Emergency Department Course and Treatment: [] Disposition: [] Impression: [] This note was generated with [employer] dictation software. It may contain incorrect words, spelling, and punctuation that were not noted in review of the chart prior to signing ED Disposition - Plan for ED Patient: Disposition: Acute Care Hospital [facility] Diagnosis: SANGEETHA (acute kidney injury), Cystitis, Sepsis Referrals: Devan Parks MD [Primary Care Provider] -
--- NOTE | 2018-09-17 19:23 | ED.DCSUM_ITS ---
- ER Visit Summary Date of Service: 09/17/18 Chief Complaint: Fever History of Present Illness: The patient is a 63 F who presents with a fever that began yesterday but became worse today. Patient states her fever with 101 today. Patient has been having some nausea, vomiting, and diarrhea. Patient was recently admitted here and was discharged 13 days ago for sepsis due to urinary tract infection. Patient completed her course of antibiotics. Patient is currently on valacyclovir for shingles. Patient admits to a cough but denies any sputum production. Patient denies any chest pain or shortness of breath. Patient denies any dysuria or hematuria. Physical Examination: Vital signs showed a temperature of 101.3 and elevated respiratory rate of 23. Pulse oximeter is 90% on room air. Oral mucosa is pink and moist. Neck is supple. Trachea is midline. There is no JVD noted. Heart was regular rate and rhythm. Lungs were clear and equal bilaterally. There is adequate respiratory effort. Abdomen is soft. Bowel sounds are normal. There is no tenderness noted. Cranial nerves II through XII are intact. There are no focal motor or sensory deficits noted. The remaining physical exam is within normal limits. Test Results: EKG showed normal sinus rhythm with a rate of 84. There are no acute ST or T wave changes. Emergency Department Course and Treatment: [] Disposition: [] Impression: [] This note was generated with [employer] dictation software. It may contain incorrect words, spelling, and punctuation that were not noted in review of the chart margarita or to signing ED Disposition - Plan for ED Patient: Disposition: Acute Care Hospital [facility] Diagnosis: SANGEETHA (acute kidney injury), Cystitis, Sepsis Referrals: Devan Parks MD [Primary Care Provider] -
[2018-09-17 19:26] LABS: ALB/GLOB Ratio 0.8 RATIO (0.9-2.4); AST(SGOT) 24 U/L (15-37); Alanine Aminotransfer ALT/SGPT 28 U/L (13-56); Albumin, Serum 2.8 g/dL (3.2-5.0); Alkaline Phosphatase 179 U/L (45-117); Anion Gap 11 (5-15); BUN 13 mg/dL (7-18); BUN/Creat Ratio 5.9 RATIO (10-20); Calcium,Total 8.3 mg/dL (8.5-10.1); Chloride 96 mmol/L (98-107); Creatinine, Serum 2.19 mg/dL (0.55-1.02); EST Glomerular Filtration Rate 24 mL/min (>60); Est Glom Filt Rate - Afr Amer 29 mL/min (>60); Estimated Creatinine Clearance 24.29 ml/min; Globulin 3.5 g/dL (2.2-4.2); Glucose 199 mg/dL (74-106); Potassium 3.5 mmol/L (3.5-5.1); Protein, Total 6.3 g/dL (6.4-8.2); Sodium Level 130 mmol/L (136-145)
[2018-09-17 19:32] LABS: Lactic Acid 0.9 mmol/L (0.4-2.0)
[2018-09-17 19:48] LABS: Bacteria 0 SEEN /hpf (None Seen); Mucous, Urine 0 SEEN /hpf (<or=2+); Red Blood Cells-Urine 0 SEEN /hpf (0-5); Squamous Epithelial Cells - UA 0 SEEN /hpf (5-10)
[2018-09-17 19:50] LABS: Color, Urine Yellow (Yellow); Glucose, Dipstick Normal (Normal); Ketone-Dipstick Negative (Negative); Leukocyte Esterase-Dipstick 500 /ul (Negative); Nitrite-Dipstick Negative (Negative); Occult Blood-Urine 25 /ul (Negative); Protein-Dipstick 30 mg/dl (Negative); Urine Bilirubin Dipstick Negative (Negative); Urine Clarity Sl. Cloudy (Clear); Urine Urobilinogen Normal (Normal)
[2018-09-17 19:56] LABS: White Blood Cells 10-25 SEEN /hpf (0-5); Yeast-Urine RARE /hpf (None Seen)
[2018-09-17] MEDS: Ceftriaxone 1 GM/50 ML BAG IV (20:41)
[2018-09-17] MEDS: Acetaminophen 500 MG Tablet 1000 MG PO (21:17)
--- NOTE | 2018-09-17 21:33 | HP.PCM_ITS ---
Problem List (1) Type 2 diabetes mellitus Status: Chronic (2) Diabetic gastroparesis Status: Chronic (3) GERD (gastroesophageal reflux disease) Status: Chronic Qualifiers: (4) Seizure disorder Status: Chronic (5) Paroxysmal atrial fibrillation Status: Chronic (6) Chronic pain syndrome Status: Chronic (7) Takotsubo cardiomyopathy Status: Chronic (8) Iron deficiency anemia Status: Chronic Qualifiers: (9) Depression Status: Chronic Qualifiers: (10) HLD (hyperlipidemia) Status: Chronic Qualifiers: (11) Benign essential HTN Status: Chronic History of Present Illness Date of Admission: 09/17/18 Chief Complaint: Fever, weakness, nausea, vomiting and diarrhea. The patient is a 63 year old F with past medical history as mentioned above presented to the emergency room because of fever, weakness, nausea, vomiting and diarrhea. Her illness started 2 days ago with fever of up to 1 or 2.3 Fahrenheit at home, associated with found weakness and fatigue as well as persistent nausea and vomiting and diarrhea. Since day before yesterday, she has been having nausea associated with vomiting as well as diarrhea, 4-5 times of loose stool without blood. She denied abdominal pain. She denied cough or sputum production. Denied chest pain or shortness of breath. The patient mentioned that she has been having this diarrhea since she was given antibiotic after she was discharged from the hospital around 2 weeks ago. She was discharged from the hospital on September 04, 2018 after admission for acute kidney injury, septic shock, acute cystitis and hyperkalemia and she was discharged on Zyvox for 7 days after discharge. She saw her PCP this past Saturday and she was started on valacyclovir for shingles on her lower back. She has a history of uncontrolled type 2 diabetes mellitus, has been on very high dose of insulin at home and her most recent hemoglobin A1c was 10.4 on August 23, 2018. She has history of paroxysmal atrial fibrillation, has been on Coreg for rate control and she is not on anticoagulation because of unclear reasons. She has history of hypertension which seems to be under control with Coreg and losartan. She had a history of seizure disorder which has been controlled on lamotrigine. In the emergency department, patient was febrile, blood pressure and heart rate were stable, pulse ox was 98% on 2 L and she was not tachypneic or dyspneic. Routine blood work was remarkable for hemoglobin of 10.3 g/dL, sodium of 130, creatinine of 2.19. Urinalysis revealed cloudy urine, negative for nitrite, positive for leukocyte esterase and there was 10-25 WBCs but no bacteria seen. Her EKG revealed normal sinus rhythm without evidence of acute ischemic changes or cardiac arrhythmias. Chest x-ray showed no acute infiltrate or consolidation. She is being admitted for recurrent acute cystitis, acute kidney injury double stage III chronic kidney disease and acute diarrheal illness. Past Medical History Past Medical History (Chronic Problems): Chronic Problems (Last Updated 09/17/18 @ 21:26 by Fina Huertas MD) Fibromyalgia (Chronic) Congestive heart failure (Chronic) Type 2 diabetes mellitus (Chronic) 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) Diabetic gastroparesis (Chronic) Weakness of both lower extremities (Chronic) GERD (gastroesophageal reflux disease) (Chronic) Seizure disorder (Chronic) Paroxysmal atrial fibrillation (Chronic) Chronic pain syndrome (Chronic) Takotsubo cardiomyopathy (Chronic) Iron deficiency anemia (Chronic) Depression (Chronic) Morbid obesity with BMI of 40.0-44.9, adult (Chronic) HLD (hyperlipidemia) (Chronic) Benign essential HTN (Chronic) Medical History: Medical History (Last Updated 09/17/18 @ 21:26 by Fina Huertas MD) Fibromyalgia (Chronic) M79.7 Congestive heart failure (Chronic) I50.9 Type 2 diabetes mellitus (Chronic) E11.9 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) I25.2 GERD (gastroesophageal reflux disease) (Chronic) K21.9 Seizure disorder (Chronic) G40.909 Paroxysmal atrial fibrillation (Chronic) I48.0 Chronic pain syndrome (Chronic) G89.4 Takotsubo cardiomyopathy (Chronic) I51.81 Iron deficiency anemia (Chronic) D50.9 Depression (Chronic) F32.9 Morbid obesity with BMI of 40.0-44.9, adult (Chronic) E66.01, Z68.41 HLD (hyperlipidemia) (Chronic) E78.5 Benign essential HTN (Chronic) I10 Diverticulitis K57.92 Diabetic gastroparesis E11.43, K31.84 Fibromyalgia M79.7 QIAN (obstructive sleep apnea) G47.33 Restless leg syndrome G25.81 History of CVA (cerebrovascular accident) (Inactive) Z86.73 Allergies ciprofloxacin [From Cipro] Allergy (Verified 08/31/18 18:46) Shortness of breath ciprofloxacin HCl [From Cipro] Allergy (Verified 08/31/18 18:46) Shortness of breath cyclobenzaprine [From Flexeril] Allergy (Verified 08/31/18 18:46) Rash cyclobenzaprine HCl [From Flexeril] Allergy (Verified 08/31/18 18:46) Rash ketorolac tromethamine [From Toradol] Allergy (Verified 08/31/18 18:46) Chest tightness sulfamethoxazole [From Bactrim] Allergy (Verified 08/31/18 18:46) Itching trimethoprim [From Bactrim] Allergy (Verified 08/31/18 18:46) Itching metformin Adverse Reaction (Verified 08/31/18 18:46) Other headache valacyclovir HCl [From Valtrex] Adverse Reaction (Verified 08/31/18 18:46) Other Home Medications: Ambulatory Orders Medication Instructions Recorded Aspirin [Aspirin, Baby] 81 mg PO DAILY 05/07/16 Ropinirole HCl [Requip] 1 mg PO QHS 05/07/16 lamotrigine 100 mg tablet 100 mg PO BID 03/24/18 Ondansetron [Zofran] 8 mg PO Q6H PRN PRN 05/23/18 carvedilol 3.125 mg tablet 3.125 mg PO BID #180 tab 08/14/18 proMETHazine tablet [Phenergan 25 mg PO Q6H PRN PRN #10 tab 08/17/18 tablet] Naloxegol Oxalate [Movantik] 12.5 mg PO QHS 08/19/18 Insulin Degludec [Tresiba 200 unit SQ DAILY 08/31/18 Flextouch U-200] Insulin Regular, Human [Humulin R] 20 unit SQ TID 08/31/18 Nystatin Powder [Mycostatin Powder] 1 applic TOPICAL TID 08/31/18 Allopurinol 100 mg PO DAILY 09/17/18 Haloperidol 1 mg PO TID PRN PRN 09/17/18 Levothyroxine Sodium 75 mcg PO DAILY 09/17/18 Losartan Potassium 100 mg PO DAILY 09/17/18 Pregabalin [Lyrica] 225 mg PO BID 09/17/18 Simvastatin 40 mg PO QHS 09/17/18 Valacyclovir HCl [Valacyclovir] 1,000 mg PO TID 09/17/18 Surgical History: Surgical History (Last Reviewed 08/31/18 @ 23:19 by Jacques Santos MD) History of cholecystectomy Z90.49 History of knee surgery Z98.890 Surgical History: appendectomy, cholecystectomy Psychiatric History: Depression [employer]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 Lives: With Family Smoking Status: Never smoker Alcohol: None Drugs: None - *Family History Paternal Family History: Family History (Last Reviewed 08/31/18 @ 23:19 by Jacques Santos MD) Mother Myocardial infarction Father Congestive heart failure Other Diabetes Heart disease History Items: Heart Disease, - - Bone cancer Maternal Family History: Family History (Last Reviewed 08/31/18 @ 23:19 by Jacques Santos MD) Mother Myocardial infarction Father Congestive heart failure Other Diabetes Heart disease History Items: COPD, Diabetes, Heart Disease, - - Smoker Review of Systems Constitutional: Reports: Anorexia, Fever, Weakness, Fatigue. Denies: Chills Eyes: Denies: Blurred vision, Double vision, Drainage, Redness HEENT: Denies: Difficulty Hearing, Ear Pain, Eye Pain, Nasal Congestion, Sore Throat Cardiovascular: Denies: Chest Pain, Chest Pressure, Chest Tightness, Heaviness, Palpitations, Syncope Respiratory: Denies: Cough, Pleuritic Pain, Shortness of Breath, Sputum production, Wheezing Gastrointestinal: Reports: Diarrhea, Nausea, Vomiting. Denies: Abdominal Pain, Constipation Genitourinary: Denies: Dysuria, Frequency, Hematuria Musculoskeletal: Denies: Arm Pain, Back Pain, Foot Pain Skin: Denies: Dryness, Rash Neurological: Denies: Balance problems, Change in Speech, Slurred speech, Confusion, Headaches, Incoordination, Numbness Psychiatric: Reports: Depression. Denies: Anxiety Endocrine: Denies: Change in Body Habitus, Polydipsia VTE Information - Inpt Only VTE Present on Admission: No VTE Mechan Device Prophylaxis: None VTE Pharm Prophylaxis ordered?: Yes - Physical Exam General: Alert, Oriented x3, Cooperative, No apparent distress HEENT: Atraumatic, PERRLA, EOMI, Normocephalic Oral: Moist Mucosa, No Gingival or Mucosal Lesions/ Ulcerations Neck: Supple, No JVD, Negative Carotid Bruits, Trachea Midline, Thyroid Normal Size and Texture Lungs: Clear to auscultation, No rhonchi, No wheeze, No rales, Diminished Cardiovascular: Regular rate, Regular Rhythm, Normal S1, Normal S2, PMI Normal Abdomen: Bowel Sounds Present, Soft, Non Tender, Non-Distended, No Hepato- splenomegaly, Obese Extremities: No clubbing, No cyanosis, No edema Skin: No breakdown, Rash Present - She has 2 small skin lesions which likely due to healing shingles on the lower back. Lymphatic: No Cervical, Supraclavicular, or Inguinal Adenopathy Neurological: Cranial nerves II-XII grossly intact, Motor Exam 5/5 strength throughout Psych/Mental Status: Normal Affect, Appropriate, Alert and oriented to time, place, person, mood and affect Vital Signs Temp Pulse Resp BP Pulse Ox 99.5 F H 74 18 121/57 H 98 09/17/18 21:21 09/17/18 21:21 09/17/18 21:21 09/17/18 21:21 09/17/18 21:21 Oxygen Flow Rate (L/min) 2 Oxygen Delivery Method Nasal Cannula Weight: 269 lb 6.478 oz Body Mass Index (BMI) 43.4 Finger Stick Blood Glucose 279 Laboratory Tests Past 24 Hrs 09/17/18 09/17/18 09/17/18 18:55 18:55 18:55 WBC 7.9 RBC 3.85 L Hgb 10.3 L Hct 31.5 L MCV 81.8 MCH 26.8 L MCHC 32.7 RDW 17.4 H RDW Differential 51.5 H Plt Count 198 MPV 8.6 Immature Gran % (Auto) 0.300 Neut % (Auto) 66.3 Lymph % (Auto) 21.4 [place] % (Auto) 11.4 H Eos % (Auto) 0.3 Baso % (Auto) 0.3 Absolute Neuts (auto) 5.3 Absolute Lymphs (auto) 1.69 Total Counted Not Reportable PT 15.0 H INR 1.2 APTT 34.0 Sodium 130 L Potassium 3.5 Chloride 96 L Carbon Dioxide 23.0 Anion Gap 11 BUN 13 Creatinine 2.19 H Estim Creat Clear Calc 24.29 Est GFR (MDRD) Af Amer 29 L Est GFR (MDRD) Non-Af 24 L BUN/Creatinine Ratio 5.9 L Glucose 199 H Lactic Acid Calcium 8.3 L Total Bilirubin 1.30 H AST 24 ALT 28 Alkaline Phosphatase 179 H Total Protein 6.3 L Albumin 2.8 L Globulin 3.5 Albumin/Globulin Ratio 0.8 L Urine Color Urine Clarity Urine pH Ur Specific [place] Urine Protein Urine Glucose (UA) Urine Ketones Urine Occult Blood Urine Nitrite Urine Bilirubin Urine Urobilinogen Ur Leukocyte Esterase Urine RBC Urine WBC Ur Squamous Epith Cells Urine Bacteria Urine Mucus Urine Yeast 09/17/18 09/17/18 18:55 19:45 WBC RBC Hgb Hct MCV MCH MCHC RDW RDW Differential Plt Count MPV Immature Gran % (Auto) Neut % (Auto) Lymph % (Auto) [place] % (Auto) Eos % (Auto) Baso % (Auto) Absolute Neuts (auto) Absolute Lymphs (auto) Total Counted PT INR APTT Sodium Potassium Chloride Carbon Dioxide Anion Gap BUN Creatinine Estim Creat Clear Calc Est GFR (MDRD) Af Amer Est GFR (MDRD) Non-Af BUN/Creatinine Ratio Glucose Lactic Acid 0.9 Calcium Total Bilirubin AST ALT Alkaline Phosphatase Total Protein Albumin Globulin Albumin/Globulin Ratio Urine Color Yellow Urine Clarity Sl. Cloudy Urine pH 6.0 Ur Specific [place] 1.010 Urine Protein 30 H Urine Glucose (UA) Normal Urine Ketones Negative Urine Occult Blood 25 H Urine Nitrite Negative Urine Bilirubin Negative Urine Urobilinogen Normal Ur Leukocyte Esterase 500 H Urine RBC 0 SEEN Urine WBC 10-25 SEEN Ur Squamous Epith Cells 0 SEEN Urine Bacteria 0 SEEN Urine Mucus 0 SEEN Urine Yeast RARE Clinical Impression(s) from Imaging Studies Chest X-Ray 09/17/18 19:00 IMPRESSION: No acute findings Electronically Signed: Chintan Steele MD at 19:22 EST , Service support , Assessment/Plan This is a 63 years old female patient presented to the emergency room because of fever, weakness, nausea, vomiting and diarrhea and she was found to have findin gs consistent with acute cystitis in context of recent admission for acute cystitis, acute kidney injury and hyperkalemia and also found to have acute kidney injury on top of stage III chronic kidney disease and acute diarrheal illness. #1 acute cystitis: In context of recent admission for acute cystitis, acute kidney injury and hyperkalemia. Upon discharge, she was discharged on Zyvox and her urine culture revealed enterococcus faecium. During that admission, she had one blood culture that was positive for coag negative staph which considered as contamination. At this time, patient is febrile, blood pressure and heart rate are stable, no leukocytosis, lactic acid was normal. Plan: Admit to [facility], blood culture, urine culture, IV fluids, start IV Zosyn, Tylenol as needed, repeat CBC and CMP tomorrow morning, PT OT evaluation and treatment. #2 acute kidney injury on top of stage III chronic kidney disease: Baseline creatinine has been fluctuating, ranges from 1.2 up to 3 mg/dL. Most recently, creatinine was 1.112 weeks ago, admission creatinine is 2.19. This is acute on chronic and it is likely because of nausea, vomiting and diarrhea as well as infection. Plan: IV fluids, and Protopic chart, repeat BMP tomorrow morning. #3 acute diarrheal illness: In context of recent history of use of antibiotics, patient was on Zyvox for 1 week after discharge from the hospital 2 weeks ago. Plan: IV fluids, stool for C. difficile, stool for enteric pathogens. #4 recent history of shingles on the lower back: Continue valacyclovir. #5 type 2 diabetes mellitus: Uncontrolled. Plan for ADA diet, Accu-Cheks, insulin sliding scale, continue home doses of Tresiba, continue on pre-meal Humulin. #6 paroxysmal atrial fibrillation: Rate controlled, continue Coreg for rate c ontrol, she is not on anticoagulation for unclear reasons. #7 hypertension: At this time, blood pressure stable, continue Coreg, hold losartan because of worsening kidney function. #8 seizure disorder: Stable, continue lamotrigine. #9 hypothyroidism: Continue to be toxic. #10 hyperlipidemia: Continue statins. #11 chronic CHF/Takotsubo cardiomyopathy: Clinically stable, compensated. Continue Coreg, hold losartan, close monitoring of volume status to avoid volume overload. #12 chronic iron deficiency anemia: Hemoglobin stable at baseline. #13 DVT prophylaxis: Subcu heparin. This note was generated with [employer] dictation software. It may contain incorrect words, spelling, and punctuation that were not noted in checking the note before signing. Code Visit Inpatient E&M: 42029 Init Hosp L3
[2018-09-17] MEDS: Carvedilol 3.125 MG TABLET PO (23:21)
[2018-09-17] MEDS: Acyclovir 800 MG Tablet PO (23:21)
[2018-09-17] MEDS: lamoTRIgine 100 MG Tablet PO (23:22)
[2018-09-17] MEDS: Atorvastatin Calcium 20 MG Tablet PO (23:22)
[2018-09-17] MEDS: Pramipexole Di-HCl 0.5 MG Tablet PO (23:23)
[2018-09-17] MEDS: Heparin Injection (Vial) 5,000 UNIT/ML VIAL 5000 UNIT SC (23:24)
[2018-09-17] MEDS: Pregabalin 75 MG Capsule 225 MG PO (23:24)
[2018-09-17] MEDS: Insulin Lispro 100 UNIT/ML INSULN.PEN SQ (23:31)
[2018-09-17 23:42] LABS: M R Staph aureus DNA By PCR Negative (Negative); Probe Check PASS; Specimen Processing Control PASS
[2018-09-17 23:46] LABS: Bedside Glucose 175 mg/dL (70-110)
[2018-09-18] VITALS (11 sets, daily range): BP systolic 92–162; BP diastolic 51–105; PULSE 55–79; RESP 18; TEMP 36.4–36.9; O2SAT 95–100
[2018-09-18 04:26] LABS: Bedside Glucose 138 mg/dL (70-110)
--- NOTE | 2018-09-18 04:30 | NURSING ---
PT C/O CHEST PAIN. 4 OUT OF 10 PAIN SCALE. CHECKED VITALS, CHECKED BLOOD SUGAR, STAT EKG DONE, NOTIFIED DOCTOR, NO NEW ORDERS.
--- NOTE | 2018-09-18 04:46 | EKG12_ITS ---
Test Reason : CHEST PAIN Blood Pressure : / mmHG Vent. Rate : 062 BPM Atrial Rate : 062 BPM P-R Int : 152 ms QRS Dur : 094 ms QT Int : 452 ms P-R-T Axes : 036 001 031 degrees QTc Int : 458 ms Normal sinus rhythm Low voltage QRS Borderline ECG When compared with ECG of 17-SEP-2018 19:09, MANUAL COMPARISON REQUIRED, DATA IS UNCONFIRMED Confirmed by ABIMAEL CURRY, CAROLE ([id number]), publication editor MAIKEL MULLEN ([id number]) on 09/19/2018 3:47:09 PM Referred By: Fina Huertas Confirmed By:CAROLE VARGHESE MD
[2018-09-18 06:21] LABS: Anion Gap 11 (5-15); BUN 13 mg/dL (7-18); BUN/Creat Ratio 7.5 RATIO (10-20); Calcium,Total 7.2 mg/dL (8.5-10.1); Chloride 106 mmol/L (98-107); Creatinine, Serum 1.73 mg/dL (0.55-1.02); EST Glomerular Filtration Rate 32 mL/min (>60); Est Glom Filt Rate - Afr Amer 38 mL/min (>60); Estimated Creatinine Clearance 30.75 ml/min; Glucose 105 mg/dL (74-106); Potassium 3.4 mmol/L (3.5-5.1); Sodium Level 135 mmol/L (136-145)
[2018-09-18] MEDS: Acyclovir 800 MG Tablet PO ×5 (06:23→21:34)
[2018-09-18] MEDS: 0.9% NaCl Peripheral Flush Adult/Peds IV (06:23)
[2018-09-18] MEDS: Levothyroxine 75 MCG Tablet PO (06:23)
[2018-09-18] MEDS: Piperacil/Tazobactam 3.375 GM/50 ML ML IV (06:23)
[2018-09-18 06:30] LABS: Absolute Lymphocyte Count 1.79 X10^3/ul (0.83-4.51); Absolute Neutrophil Count 2.8 X10^3/uL (2.0-7.7); Basophil# 0.04 X10^3/uL; Basophil% 0.7 % (0-1); Eosinophil# 0.11 X10^3/uL; Eosinophils% 1.8 % (0-5); Hematocrit 27.2 % (37-47); Hemoglobin 8.8 g/dl (12.0-15.0); Lymphocyte # 1.79 X10^3/ul (4.0); Lymphocyte % 29.6 % (19-41); Mean Corp Hgb Conc 32.4 g/gl (32-36); Mean Corpuscular Hgb 27.2 pg (27.0-32.0); Mean Platelet Vol. 9.1 fl (6.2-12.0); Monocyte# 1.31 X10^3/uL; Monocyte% 21.7 % (0-10); Neutrophil # 2.77 X10^3/uL (2.7-7.7); Neutrophil % 45.9 % (47-70); Platelet Count 185 K/mm3 (150-450); RBC Distribution Width CV 17.7 % (11.6-14.6); RBC Distribution Width SD 52.5 fl (35.1-43.9); Red Blood Count 3.24 M/mm3 (4.2-5.4)
[2018-09-18 06:37] LABS: Differential Indicated SCAN CRITERIA MET; POSITIVE COUNT NO; POSITIVE DIFFERENTIAL NO; POSITIVE MORPHOLOGY YES
[2018-09-18 06:56] LABS: Bedside Glucose 109 mg/dL (70-110)
--- NOTE | 2018-09-18 07:00 | PCM.PROGNOTE ---
Subjective: Day #2 antibiotics-Zosyn The patient is a 63-year-old female with a past medical history of diabetes mellitus type 2, gastroparesis, GERD, seizure disorder, paroxysmal atrial fibrillation, chronic pain syndrome, Takotsubo's cardiomyopathy, iron deficiency anemia, depression, hyperlipidemia, morbid obesity and hypertension resented to the emergency department at [facility] on 09/17/2018 complaining of fever, generalized weakness, nausea/vomiting/diarrhea. She was recently discharged from the hospital on 09/04/2018 after being admitted for acute kidney injury, septic shock, acute cystitis and hyperkalemia. She was discharged on Zyvox. On 09/12/2018 she saw her PCP in the office and was placed on valacyclovir for shingles. Vital signs of presentation to the emergency room were temperature 101.3, pulse rate 90, blood pressure 147/79, respiratory rate 23 and she was 90% saturated on room air and 94% saturated on a 2 L nasal cannula. White blood cell count was 7.9 with an unremarkable differential. Hemoglobin was 10.3 and platelets were 198,000. Sodium was low at 130 and the chloride was 96. BUN was 13 with a creatinine of 2.19 and the creatinine at discharge from the hospital on 09/04/2018 was 1.11. Lactic acid was 0.9. Transaminases were unremarkable the bilirubin was 1.3 and the alk phos was elevated at 179. UA showed 10-25 WBCs per high-power field with no squamous epithelial cells. MRSA screen was negative. Blood and urine cultures were sent from the emergency department and she was admitted to the hospital and started on Zosyn. Enteric pathogen panel was ordered. Urine culture from 08/31/2018 was positive for greater than 100,000 colonies of enterococcus Faecium that was sensitive to the Linezolid and vancomycin. She was also diagnosed with human [place] pneumo virus on 08/19/2018. She was seen by Dr. Reinoso during the last admission and diagnosed with septic shock secondary to enterococcus pyelonephritis and she received a full course of linezolid. All events of the past 24 hours been reviewed. T-max is 101.3 and the current temp is 97.5. Blood pressure has ranged from 92/51-121/57. EF in June was 60% Tells me that the diarrhea started soon after DC from the hospital. She had 5 days of Linezolid post DC and states she took all of it. Denies dysuria, urinary urgency, urinary frequency, abdominal pain. Her primary complaint is loose stool and nausea. Objective: PHYSICAL EXAM: GENERAL: alert, oriented X 3, Cooperative, NAD, appears pale ORAL: dry mucosa, no mucosal lesions NECK: No JVD, supple, trachea midline LUNGS: CTA after a few deep breaths and a cough. she initially had a few coarse crackles in the bases and a slight wheeze with crackles in the GHAZAL anterior - resolved completely after a cough. Symmetric chest expansion, not tachypneic, no conversational dyspnea, no accessory muscle use. HEART: RRR, Normal S1 and S2, no rub, no gallop ABDOMEN: soft, NT, ND, BS present but somewhat diminished, no guarding with palpation, no masses EXTREMITIES: no edema, no cyanosis, no calf tenderness SKIN: 2 small dry scabs on the back likely secondary to recent shingles infection NEUROLOGIC: no focal neurologic deficits PSYCH: appropriate, normal affect, pleasant - Physical Exam Vital Signs Temp Pulse Resp BP Pulse Ox 97.5 F L 60 18 110/59 L 100 09/18/18 06:18 09/18/18 06:18 09/18/18 06:18 09/18/18 06:18 09/18/18 06:18 Oxygen Flow Rate (L/min) 3 Oxygen Delivery Method Nasal Cannula Weight: 265 lb 3.457 oz Body Mass Index (BMI) 42.7 Finger Stick Blood Glucose 279 Intake and Output for Last 24 Hours 09/16/18 09/17/18 09/18/18 23:59 23:59 23:59 Intake Total 3839 / 3839 Output Total 600 / 600 Balance 3239 / 3239 Laboratory Tests Past 24 Hrs 09/17/18 09/17/18 09/17/18 18:55 18:55 18:55 WBC 7.9 RBC 3.85 L Hgb 10.3 L Hct 31.5 L MCV 81.8 MCH 26.8 L MCHC 32.7 RDW 17.4 H RDW Differential 51.5 H Plt Count 198 MPV 8.6 Immature Gran % (Auto) 0.300 Neut % (Auto) 66.3 Lymph % (Auto) 21.4 [place] % (Auto) 11.4 H Eos % (Auto) 0.3 Baso % (Auto) 0.3 Absolute Neuts (auto) 5.3 Absolute Lymphs (auto) 1.69 Total Counted Not Reportable PT 15.0 H INR 1.2 APTT 34.0 Sodium 130 L Potassium 3.5 Chloride 96 L Carbon Dioxide 23.0 Anion Gap 11 BUN 13 Creatinine 2.19 H Estim Creat Clear Calc 24.29 Est GFR (MDRD) Af Amer 29 L Est GFR (MDRD) Non-Af 24 L BUN/Creatinine Ratio 5.9 L Glucose 199 H Lactic Acid Calcium 8.3 L Total Bilirubin 1.30 H AST 24 ALT 28 Alkaline Phosphatase 179 H Total Protein 6.3 L Albumin 2.8 L Globulin 3.5 Albumin/Globulin Ratio 0.8 L Urine Color Urine Clarity Urine pH Ur Specific [place] Urine Protein Urine Glucose (UA) Urine Ketones Urine Occult Blood Urine Nitrite Urine Bilirubin Urine Urobilinogen Ur Leukocyte Esterase Urine RBC Urine WBC Ur Squamous Epith Cells Urine Bacteria Urine Mucus Urine Yeast MRSA (PCR) 09/17/18 09/17/18 09/17/18 18:55 19:45 22:15 WBC RBC Hgb Hct MCV MCH MCHC RDW RDW Differential Plt Count MPV Immature Gran % (Auto) Neut % (Auto) Lymph % (Auto) [place] % (Auto) Eos % (Auto) Baso % (Auto) Absolute Neuts (auto) Absolute Lymphs (auto) Total Counted PT INR APTT Sodium Potassium Chloride Carbon Dioxide Anion Gap BUN Creatinine Estim Creat Clear Calc Est GFR (MDRD) Af Amer Est GFR (MDRD) Non-Af BUN/Creatinine Ratio Glucose Lactic Acid 0.9 Calcium Total Bilirubin AST ALT Alkaline Phosphatase Total Protein Albumin Globulin Albumin/Globulin Ratio Urine Color Yellow Urine Clarity Sl. Cloudy Urine pH 6.0 Ur Specific [place] 1.010 Urine Protein 30 H Urine Glucose (UA) Normal Urine Ketones Negative Urine Occult Blood 25 H Urine Nitrite Negative Urine Bilirubin Negative Urine Urobilinogen Normal Ur Leukocyte Esterase 500 H Urine RBC 0 SEEN Urine WBC 10-25 SEEN Ur Squamous Epith Cells 0 SEEN Urine Bacteria 0 SEEN Urine Mucus 0 SEEN Urine Yeast RARE MRSA (PCR) Negative 09/18/18 09/18/18 05:50 05:50 WBC 6.0 RBC 3.24 L Hgb 8.8 L Hct 27.2 L MCV 84.0 MCH 27.2 MCHC 32.4 RDW 17.7 H RDW Differential 52.5 H Plt Count 185 MPV 9.1 Immature Gran % (Auto) 0.300 Neut % (Auto) 45.9 L Lymph % (Auto) 29.6 [place] % (Auto) 21.7 H Eos % (Auto) 1.8 Baso % (Auto) 0.7 Absolute Neuts (auto) 2.8 Absolute Lymphs (auto) 1.79 Total Counted Pending PT INR APTT Sodium 135 L Potassium 3.4 L Chloride 106 Carbon Dioxide 18.0 L Anion Gap 11 BUN 13 Creatinine 1.73 H Estim Creat Clear Calc 30.75 Est GFR (MDRD) Af Amer 38 L Est GFR (MDRD) Non-Af 32 L BUN/Creatinine Ratio 7.5 L Glucose 105 Lactic Acid Calcium 7.2 L Total Bilirubin AST ALT Alkaline Phosphatase Total Protein Albumin Globulin Albumin/Globulin Ratio Urine Color Urine Clarity Urine pH Ur Specific [place] Urine Protein Urine Glucose (UA) Urine Ketones Urine Occult Blood Urine Nitrite Urine Bilirubin Urine Urobilinogen Ur Leukocyte Esterase Urine RBC Urine WBC Ur Squamous Epith Cells Urine Bacteria Urine Mucus Urine Yeast MRSA (PCR) POC Glucose 09/18/18 09/18/18 09/17/18 06:50 04:22 23:20 POC Glucose 109 138 H 175 H Medical Necessity - Tobacco Use Smoking Status: Never smoker Assessment/Plan Impressions 1. febrile illness with nausea and diarrhea after recent extended course of broad spectrum antibiotics for septic shock secondary to pyelonephritis secondary to Enterococcus faecium, multidrug-resistant. Suspect Clostridium difficile infection 2. Recent admission to the hospital for septic shock secondary to pyelonephritis secondary to multidrug resistant Enterococcus faecium infection 3. abnormal UA with persistent pyuria - did the pyelo every completely clear? Will need to continue the Linezolid.....until the culture results are available 4. DM II -poorly controlled, recent hemoglobin A1c 10.5% 5. Hyponatremia 6. Morbid obesity 7. Hypokalemia 8. Acute kidney injury 9. Severe sepsis 10. Gastroparesis 11. GERD 12. Seizure disorder 13. PAF 14. Chronic pain syndrome 15. History of Takotsubo's cardiomyopathy with recent normal ejection fraction 16. Hyperlipidemia 17. Hypertension 18. History of depression-questionable bipolar disorder-Why is she on Haldol as needed at home and marked Add Zyvox - this may be a recurrence of the Enteroccoccus Faecium she had at the last admission Discontinue Zosyn.. Await the results of the enteric pathogen panel......and the C DIFF. Diarrhea reported on the clinical panel from last night but it was not observed by nursing....semi-formed stool today Start Flagyl PO empirically Start a probiotic Start Atrovent nasal spray for nasal congestion and rhinorrhea change the diet to clears Adjust the insulin Med reconciliation reviewed. Restart allopurinol Recheck lab in the a.m. Code Visit Inpatient E&M: 86284 Subs Hosp L3
[2018-09-18] MEDS: Glucerna Shake 120 ML LIQUID PO (10:32)
[2018-09-18] MEDS: Pregabalin 75 MG Capsule 225 MG PO ×2 (10:33→21:35)
[2018-09-18] MEDS: Aspirin 81 MG TAB.CHEW PO (10:33)
[2018-09-18] MEDS: lamoTRIgine 100 MG Tablet PO ×2 (10:34→21:34)
[2018-09-18] MEDS: Carvedilol 3.125 MG TABLET PO ×2 (10:34→21:34)
[2018-09-18] MEDS: Heparin Injection (Vial) 5,000 UNIT/ML VIAL 5000 UNIT SC ×2 (10:35→21:35)
[2018-09-18] MEDS: Linezolid 600 MG 600 MG/300 ML BAG 200 MG IV ×2 (10:36→21:37)
[2018-09-18 11:35] LABS: Bedside Glucose 130 mg/dL (70-110)
[2018-09-18 11:54] LABS: Magnesium 2.1 mg/dL (1.6-2.6); Phosphorus 3.9 mg/dL (2.5-4.9)
--- NOTE | 2018-09-18 13:40 | CASEMGMT ---
ALMA KLINE Face to Face with patient for initial transition planning/care coordination assessment. ALMA KLINE introduced self and role at [facility]. Patient lying in bed, alert and oriented, sister and [id number] at bedside. Patient willing to participate in assessment and is able to answer all questions appropriately. Care providers, pharmacy, and demographics verified. Patient wishes to discharge to sister's home with resumption of HHC with [facility]. Patient insurance is changing as of 09/19/18 to [facility] and [facility] is not in-network. Per Linda Carley at [facility] is working with [facility] to establish contract for [facility] with insurance since there is not an in-network [facility] company within 50 miles. Patient states he has no further needs or concerns at this time. CM to follow for discharge planning needs that may arise. ALMA KLINE called and spoke with Carley at [facility] and confirmed that they are working on contract for services with new insurance. Per Carley they will continue to provide C services for patient at discharge. PCP: Charly Specialists: Terra, freelance court stenographer; Sonam, endocrinology; Bimal, cloud architect. Preferred Pharmacy: [facility] Insurance: [facility], new insurance with [facility]: ID#[id number] Prescription Benefit: [facility] Pharmacy: BIN#[id number] Group:[id number] PCN: [id number] Living Will/HPOA: Yes, sister Linda Mike LNOK: Sister Living Arrangements: Patient usually lives alone in her 1 story house with 2 steps to enter home. Patient is independent at home. Patient has been staying with sister Linda. Transportation: Sister or [id number] DME/HHC: Patient states that she has raised toilet, cane, walker, grab bars. Denies oxygen, cpap, bipap, nebulizer at home. Patient may need shower chair at home. Disposition Plan: Patient to discharge to sister's house pending how she does with therapy. Will resume HHC for SN, PT, OT. Romana CARDOZON, RN, CM
[2018-09-18] MEDS: metroNIDAZOLE 500 MG Tablet PO ×2 (14:03→21:34)
[2018-09-18] MEDS: Nystatin Powder 15gm Bottle 1 APPLIC TOPICAL ×2 (14:04→21:36)
[2018-09-18] MEDS: Azelastine HCl NASAL.SRY 2 SPRAY NASAL ×2 (14:05→23:41)
[2018-09-18] MEDS: Acetaminophen 325 MG Tablet 650 MG PO ×2 (16:47→23:24)
[2018-09-18] MEDS: Insulin Lispro 100 UNIT/ML INSULN.PEN SQ (16:52)
[2018-09-18] MEDS: proCHLORPERazine 10 MG/2 ML Vial IV (18:48)
[2018-09-18 19:01] LABS: Bedside Glucose 154 mg/dL (70-110)
[2018-09-18] MEDS: Pramipexole Di-HCl 0.5 MG Tablet PO (21:34)
[2018-09-18] MEDS: Atorvastatin Calcium 20 MG Tablet PO (21:34)
[2018-09-18 22:00] LABS: Bedside Glucose 90 mg/dL (70-110)
[2018-09-19] VITALS (10 sets, daily range): BP systolic 131–192; BP diastolic 54–84; PULSE 79–98; RESP 18; TEMP 37.1–37.8; O2SAT 94–100
[2018-09-19] MEDS: proCHLORPERazine 10 MG/2 ML Vial IV ×4 (01:19→22:55)
[2018-09-19] MEDS: Acetaminophen 325 MG Tablet 650 MG PO ×2 (05:51→16:58)
[2018-09-19 06:17] LABS: Absolute Lymphocyte Count 1.64 X10^3/ul (0.83-4.51); Absolute Neutrophil Count 5.6 X10^3/uL (2.0-7.7); Basophil# 0.02 X10^3/uL; Basophil% 0.2 % (0-1); Eosinophil# 0.13 X10^3/uL; Eosinophils% 1.5 % (0-5); Hematocrit 29.1 % (37-47); Hemoglobin 9.3 g/dl (12.0-15.0); Lymphocyte # 1.64 X10^3/ul (4.0); Mean Corpuscular Hgb 26.7 pg (27.0-32.0); Mean Corpuscular Volume 83.6 fL (81-99); Mean Platelet Vol. 9.3 fl (6.2-12.0); Monocyte# 1.23 X10^3/uL; Monocyte% 14.3 % (0-10); Neutrophil # 5.57 X10^3/uL (2.7-7.7); Neutrophil % 64.7 % (47-70); Platelet Count 199 K/mm3 (150-450); RBC Distribution Width CV 17.8 % (11.6-14.6); RBC Distribution Width SD 54.1 fl (35.1-43.9); Red Blood Count 3.48 M/mm3 (4.2-5.4); White Blood Count 8.6 K/mm3 (4.4-11.0)
[2018-09-19] MEDS: Nystatin Powder 15gm Bottle 1 APPLIC TOPICAL ×3 (06:17→22:22)
[2018-09-19 06:19] LABS: POSITIVE COUNT NO; POSITIVE DIFFERENTIAL NO; POSITIVE MORPHOLOGY NO
[2018-09-19] MEDS: Acyclovir 800 MG Tablet PO ×3 (06:19→22:16)
[2018-09-19] MEDS: Levothyroxine 75 MCG Tablet PO (06:19)
[2018-09-19] MEDS: metroNIDAZOLE 500 MG Tablet PO (06:19)
[2018-09-19 06:39] LABS: ALB/GLOB Ratio 0.7 RATIO (0.9-2.4); AST(SGOT) 23 U/L (15-37); Alanine Aminotransfer ALT/SGPT 23 U/L (13-56); Albumin, Serum 2.3 g/dL (3.2-5.0); Alkaline Phosphatase 168 U/L (45-117); Anion Gap 10 (5-15); BUN 8 mg/dL (7-18); BUN/Creat Ratio 7.5 RATIO (10-20); Calcium,Total 7.7 mg/dL (8.5-10.1); Chloride 111 mmol/L (98-107); Creatinine, Serum 1.06 mg/dL (0.55-1.02); EST Glomerular Filtration Rate 56 mL/min (>60); Est Glom Filt Rate - Afr Amer 67 mL/min (>60); Estimated Creatinine Clearance 50.19 ml/min; Globulin 3.2 g/dL (2.2-4.2); Glucose 46 mg/dL (74-106); Magnesium 1.6 mg/dL (1.6-2.6); Phosphorus 2.4 mg/dL (2.5-4.9); Potassium 3.8 mmol/L (3.5-5.1); Protein, Total 5.5 g/dL (6.4-8.2); Sodium Level 140 mmol/L (136-145)
[2018-09-19 07:27] LABS: Glucose 56 mg/dL (74-106)
--- NOTE | 2018-09-19 07:45 | NURSING ---
ROUTINE BLOOD SUGAR CHECK PERFORMED @ 0638 REVEALING BLOOD SUGAR 42, STAT LAB ORDERED AND DRAWN PER PROTOCOL, CARB SNACK GIVEN, RECHECK BS X15 MINUTES RESULTING IN BS OF 42, ADDITIONAL CARB SNACK GIVEN, BS RECHECKED X15 MINUTES REVEALING BS OF 49. ADDITIONAL SNACK GIVEN, BS RECHECK X15 MINUTES SHOWED 60. PT ALERT AND ORIENTED, NO SYMPTOMS NOTED OF HYPOGLYCEMIA. DR SELLERS NOTIFIED, NO NEW ORDERS GIVEN.
[2018-09-19 07:46] LABS: Bedside Glucose 42 mg/dL (70-110)
[2018-09-19 07:46] LABS: Bedside Glucose 60 mg/dL (70-110)
--- NOTE | 2018-09-19 08:21 | PCM.PROGNOTE ---
Subjective: Day #2 Linezolid All events the past 24 hours of been reviewed. She has become afebrile since 10 PM on 3018. Total signs are stable. Pulse ox is 96% on 1 L All lab was personally reviewed. White blood cell count is 8.6 with a normal differential today. Hemoglobin is 9.3 which is stable and the platelets are within normal limits. Serum bicarb is 19 and stable. Hyponatremia and hypokalemia have resolved. Creatinine is 1.06 today, down from 2.19 at admission. Serum calcium corrected for hypoalbuminemia is within normal limits. Magnesium is 1.6 and phosphorus is low at 2.4. LFTs are unremarkable. She was hypoglycemic this a.m. despite cutting her insulin by greater than 50%. Clostridium difficile was negative. Enteric pathogen panel was negative. Urine and blood cultures are pending. She still has mild nausea but has not vomited since yesterday. She denies abdominal pain. She continues to deny dysuria, urinary frequency or urgency. She has more formed stool now. She is c/o pain in the right hip - fell on the day of admission...takes Vicodin at home for pain. She plans on going to her sister's house at [place] and getting [facility] Objective: PHYSICAL EXAM: GENERAL: alert, oriented X 3, Cooperative, NAD, has her makeup on already this AM ORAL: moist mucosa, no mucosal lesions NECK: No JVD, supple, trachea midline LUNGS: CTA, symmetric chest expansion, no wheezing or rales HEART: RRR, Normal S1 and S2, no rub, no gallop ABDOMEN: soft, NT, ND, BS present, no guarding with palpation EXTREMITIES: no edema, no cyanosis, no calf tenderness SKIN: No rashes, no breakdown NEUROLOGIC: no focal neurologic deficits PSYCH: appropriate, normal affect, pleasant - Physical Exam Vital Signs Temp Pulse Resp BP Pulse Ox 99.1 F 87 18 131/54 H 96 09/19/18 02:28 09/19/18 06:00 09/19/18 02:28 09/19/18 02:28 09/19/18 02:28 Oxygen Flow Rate (L/min) 1 Oxygen Delivery Method Nasal Cannula Weight: 265 lb 3.457 oz Body Mass Index (BMI) 42.7 Finger Stick Blood Glucose 279 Intake and Output for Last 24 Hours 09/17/18 09/18/1809/19/19 23:59 23:59 23:59 Intake Total 5039 / 5039 4214 / 4214 Output Total 1600 / 1600 1999 Balance 3439 / 3439 2214 / 2214 Microbiology Past 72 Hours 09/18/18 Unknown C. difficile DNA Amplification - Final Stool 09/18/18 Unknown Enteric Bacteriology - Final Stool Laboratory Tests Past 24 Hrs 09/18/18 09/19/18 09/19/18 05:50 05:42 05:42 WBC 8.6 RBC 3.48 L Hgb 9.3 L Hct 29.1 L MCV 83.6 MCH 26.7 L MCHC 32.0 RDW 17.8 H RDW Differential 54.1 H Plt Count 199 MPV 9.3 Immature Gran % (Auto) 0.300 Neut % (Auto) 64.7 Lymph % (Auto) 19.0 Bee % (Auto) 14.3 H Eos % (Auto) 1.5 Baso % (Auto) 0.2 Absolute Neuts (auto) 5.6 Absolute Lymphs (auto) 1.64 Total Counted Not Reportable Sodium 140 Potassium 3.8 Chloride 111 H Carbon Dioxide 19.0 L Anion Gap 10 BUN 8 Creatinine 1.06 H Estim Creat Clear Calc 50.19 Est GFR (MDRD) Af Amer 67 Est GFR (MDRD) Non-Af 56 L BUN/Creatinine Ratio 7.5 L Glucose 46 L Calcium 7.7 L Phosphorus 3.9 2.4 L Magnesium 2.1 1.6 Total Bilirubin 0.70 AST 23 ALT 23 Alkaline Phosphatase 168 H Total Protein 5.5 L Albumin 2.3 L Globulin 3.2 Albumin/Globulin Ratio 0.7 L 09/19/18 07:05 WBC RBC Hgb Hct MCV MCH MCHC RDW RDW Differential Plt Count MPV Immature Gran % (Auto) Neut % (Auto) Lymph % (Auto) Bee % (Auto) Eos % (Auto) Baso % (Auto) Absolute Neuts (auto) Absolute Lymphs (auto) Total Counted Sodium Potassium Chloride Carbon Dioxide Anion Gap BUN Creatinine Estim Creat Clear Calc Est GFR (MDRD) Af Amer Est GFR (MDRD) Non-Af BUN/Creatinine Ratio Glucose 56 L Calcium Phosphorus Magnesium Total Bilirubin AST ALT Alkaline Phosphatase Total Protein Albumin Globulin Albumin/Globulin Ratio POC Glucose 09/19/18 09/19/18 09/18/18 07:30 06:38 21:33 POC Glucose 60 L 42 L* 90 09/18/18 09/18/18 16:51 11:25 POC Glucose 154 H 130 H Medical Necessity - Tobacco Use Smoking Status: Never smoker Assessment/Plan Impressions 1. febrile illness with nausea and diarrhea after recent extended course of broad spectrum antibiotics for septic shock secondary to pyelonephritis secondary to Enterococcus faecium, multidrug-resistant. Clostridium difficile and enteric pathogen panel are negative 2. Recent admission to the hospital for septic shock secondary to pyelonephritis secondary to multidrug resistant Enterococcus faecium infection 3. abnormal UA with persistent pyuria - did the pyelo every completely clear? Will need to continue the Linezolid.....until the culture results are available 4. DM II -poorly controlled, recent hemoglobin A1c 10.5% 5. Hyponatremia 6. Morbid obesity 7. Hypokalemia 8. Acute kidney injury-resolved 9. Severe sepsis 10. Gastroparesis 11. GERD 12. Seizure disorder 13. PAF 14. Chronic pain syndrome 15. History of Takotsubo's cardiomyopathy with recent normal ejection fraction 16. Hyperlipidemia 17. Hypertension 18. History of depression-questionable bipolar disorder-Why is she on Haldol as needed at home and marked 19. Hypoglycemia Continue linezolid Await the results of the urine culture Advance diet DC the IV fluids Adjust the insulin......diet advance so will not decrease the Lantus....continue the SSI It is possible that the nausea/vomiting/diarrhea are secondary to linezolid. She could also have drug fever at admission? The urine culture has no growth to date and the blood cultures are negative...DC the Linezolid and continue to observe Code Visit Inpatient E&M: 03834 Subs Hosp L2
--- NOTE | 2018-09-19 08:45 | RAD_ITS ---
STUDY: X-RAY - RIGHT HIP REASON FOR EXAM: Female, 63 years old. Pain. History of fall. TECHNIQUE: 2 views of the hip. COMPARISON: None. FINDINGS: Normal femoral head, neck, intertrochanteric region and visualized proximal femur. Normal acetabulum. There is moderate articular joint space narrowing. Normal visualized superior and inferior pubic rami and ischial tuberosities. Degenerative changes of the sacroiliac joints bilaterally. Sclerosis of the symphysis pubis. RAD/Hip 1 view with Pelvis IMPRESSION: Degenerative changes. No acute abnormality is seen. Electronically Signed: Tristan De La Garza MD at 13:38 EST , Service support ,
[2018-09-19] MEDS: Carvedilol 3.125 MG TABLET PO ×2 (08:51→22:18)
[2018-09-19] MEDS: Allopurinol 100 MG Tablet PO (08:51)
[2018-09-19] MEDS: Pregabalin 75 MG Capsule 225 MG PO ×2 (08:51→22:26)
[2018-09-19] MEDS: Aspirin 81 MG TAB.CHEW PO (08:51)
[2018-09-19] MEDS: lamoTRIgine 100 MG Tablet PO ×2 (08:51→22:18)
[2018-09-19] MEDS: Heparin Injection (Vial) 5,000 UNIT/ML VIAL 5000 UNIT SC ×2 (08:52→22:21)
[2018-09-19] MEDS: Linezolid 600 MG 600 MG/300 ML BAG 200 MG IV (08:59)
[2018-09-19] MEDS: HYDROcodone Bitartrate/Apap 5/325 Tablet PO ×2 (09:14→20:04)
[2018-09-19 09:21] LABS: Bedside Glucose 42 mg/dL (70-110)
[2018-09-19 09:21] LABS: Bedside Glucose 49 mg/dL (70-110)
[2018-09-19] MEDS: 0.9% NaCl Peripheral Flush Adult/Peds IV (10:05)
[2018-09-19 12:21] LABS: Bedside Glucose 128 mg/dL (70-110)
[2018-09-19] MEDS: Haloperidol Lactate 10 MG/5 ML UDC PO (15:31)
[2018-09-19] MEDS: hydrALAZINE 20 MG/ML Vial 10 MG IV (16:43)
[2018-09-19] MEDS: Menthol/Lanolin/Calamine/Znox 113 GM Tube 1 APPLIC TOPICAL ×2 (16:45→22:17)
[2018-09-19 17:06] LABS: Bedside Glucose 87 mg/dL (70-110)
--- NOTE | 2018-09-19 17:20 | CPS ---
Patient was on oxygen earlier.
[2018-09-19] MEDS: Dext 5%-0.45% NS 1,000 ML 100 ML IV (18:13)
[2018-09-19 19:11] LABS: Bedside Glucose 90 mg/dL (70-110)
[2018-09-19] MEDS: Loperamide 2 MG Capsule PO (22:16)
[2018-09-19] MEDS: Atorvastatin Calcium 20 MG Tablet PO (22:19)
[2018-09-19] MEDS: Pramipexole Di-HCl 0.5 MG Tablet PO (22:26)
[2018-09-19 22:35] LABS: Bedside Glucose 99 mg/dL (70-110)
[2018-09-20 02:00] VITALS: BP 130/70; PULSE 70; RESP 16; TEMP 37.1; O2SAT 97
[2018-09-20 02:41] LABS: Bedside Glucose 61 mg/dL (70-110)
[2018-09-20] MEDS: Dext 5%-0.45% NS 1,000 ML 100 ML IV ×2 (04:11→14:53)
[2018-09-20] MEDS: Ondansetron 4 MG/2 ML Vial IV (04:11)
[2018-09-20 04:21] LABS: Bedside Glucose 83 mg/dL (70-110)
[2018-09-20] MEDS: Albuterol 2.5 MG/3 ML VIAL.NEB. INHALATION (04:35)
[2018-09-20 04:36] VITALS: PULSE 108; RESP 26
[2018-09-20] MEDS: Acyclovir 800 MG Tablet PO ×5 (06:06→22:57)
[2018-09-20] MEDS: Levothyroxine 75 MCG Tablet PO (06:06)
[2018-09-20] MEDS: guaiFENesin 10 ML UDC (200MG/10ML) PO (06:06)
[2018-09-20] MEDS: Acetaminophen 325 MG Tablet 650 MG PO ×2 (06:55→15:00)
[2018-09-20 07:01] LABS: Bedside Glucose 111 mg/dL (70-110)
[2018-09-20 07:58] VITALS: O2SAT 92
[2018-09-20 08:27] LABS: Absolute Neutrophil Count 6.8 X10^3/uL (2.0-7.7); Basophil# 0.03 X10^3/uL; Basophil% 0.3 % (0-1); Eosinophil# 0.15 X10^3/uL; Eosinophils% 1.5 % (0-5); Hematocrit 29.3 % (37-47); Hemoglobin 9.6 g/dl (12.0-15.0); Lymphocyte % 15.8 % (19-41); Mean Corp Hgb Conc 32.8 g/gl (32-36); Mean Corpuscular Hgb 27.1 pg (27.0-32.0); Mean Corpuscular Volume 82.8 fL (81-99); Monocyte# 1.51 X10^3/uL; Monocyte% 14.9 % (0-10); Neutrophil # 6.83 X10^3/uL (2.7-7.7); Neutrophil % 67.2 % (47-70); Platelet Count 268 K/mm3 (150-450); RBC Distribution Width CV 18.1 % (11.6-14.6); RBC Distribution Width SD 54.5 fl (35.1-43.9); Red Blood Count 3.54 M/mm3 (4.2-5.4); White Blood Count 10.2 K/mm3 (4.4-11.0)
[2018-09-20 08:29] LABS: Differential Indicated SCAN CRITERIA MET; POSITIVE COUNT NO; POSITIVE DIFFERENTIAL YES; POSITIVE MORPHOLOGY NO
[2018-09-20 08:47] LABS: ALB/GLOB Ratio 0.7 RATIO (0.9-2.4); AST(SGOT) 16 U/L (15-37); Alanine Aminotransfer ALT/SGPT 20 U/L (13-56); Albumin, Serum 2.3 g/dL (3.2-5.0); Alkaline Phosphatase 181 U/L (45-117); Anion Gap 10 (5-15); BUN 5 mg/dL (7-18); BUN/Creat Ratio 5.6 RATIO (10-20); Calcium,Total 7.9 mg/dL (8.5-10.1); Chloride 106 mmol/L (98-107); Creatinine, Serum 0.89 mg/dL (0.55-1.02); EST Glomerular Filtration Rate 68 mL/min (>60); Est Glom Filt Rate - Afr Amer 82 mL/min (>60); Estimated Creatinine Clearance 59.78 ml/min; Globulin 3.2 g/dL (2.2-4.2); Glucose 120 mg/dL (74-106); Potassium 3.5 mmol/L (3.5-5.1); Protein, Total 5.5 g/dL (6.4-8.2); Sodium Level 139 mmol/L (136-145)
[2018-09-20 10:58] VITALS: BP 110/57; PULSE 72; RESP 16; TEMP 37.2; O2SAT 95
[2018-09-20] MEDS: Aspirin 81 MG TAB.CHEW PO (11:14)
[2018-09-20] MEDS: Carvedilol 3.125 MG TABLET PO ×2 (11:14→21:13)
[2018-09-20] MEDS: lamoTRIgine 100 MG Tablet PO ×2 (11:15→21:13)
[2018-09-20] MEDS: Heparin Injection (Vial) 5,000 UNIT/ML VIAL 5000 UNIT SC ×2 (11:15→21:12)
[2018-09-20] MEDS: Allopurinol 100 MG Tablet PO (11:16)
[2018-09-20] MEDS: Insulin Lispro 100 UNIT/ML INSULN.PEN SQ ×2 (11:17→17:12)
[2018-09-20] MEDS: Pregabalin 75 MG Capsule 225 MG PO ×2 (11:20→21:40)
[2018-09-20] MEDS: Nystatin Powder 15gm Bottle 1 APPLIC TOPICAL ×2 (14:52→21:44)
[2018-09-20] MEDS: Menthol/Lanolin/Calamine/Znox 113 GM Tube 1 APPLIC TOPICAL ×2 (14:53→21:43)
[2018-09-20 14:56] VITALS: BP 122/53; PULSE 69; RESP 18; TEMP 37.1; O2SAT 94
--- NOTE | 2018-09-20 16:22 | PN_ITS ---
Subjective: All events of the past 24 hours been reviewed. Patient has not had any emesis since yesterday and she denies any nausea this morning. She is tolerating water without any upset. She is afebrile and vital signs are stable. All lab was personally reviewed. CBC is stable and the white blood cell count is normal. Differential is unremarkable. BUN is 5 with a creatinine of 0.89. Final on the urine and blood cultures are no growth. The Linezolid was discontinued last night - Physical Exam General: Alert, Oriented x3, Cooperative, No apparent distress Oral: Moist Mucosa Neck: Supple Lungs: Clear to auscultation Cardiovascular: Regular rate, Regular Rhythm, Normal S1, Normal S2 Abdomen: Bowel Sounds Present, Soft, Non Tender, Non-Distended Extremities: No edema Vital Signs Temp Pulse Resp BP Pulse Ox 98.8 F 69 18 122/53 H 94 09/20/18 14:56 09/20/18 14:56 09/20/18 14:56 09/20/18 14:56 09/20/18 14:56 Oxygen Flow Rate (L/min) 1 Oxygen Delivery Method Room Air Weight: 265 lb 3.457 oz Body Mass Index (BMI) 42.7 Finger Stick Blood Glucose 279 Intake and Output for Last 24 Hours 09/18/18 09/19/18 09/20/18 23:59 23:59 23:59 Intake Total 5039 / 5039 4814 / 4814 2517 / 2517 Output Total 1600 / 1600 2600 / 2600 1500 / 1500 Balance 3439 / 3439 2214 / 2214 1017 / 1017 Microbiology Past 72 Hours 09/17/18 19:05 Blood Culture - Preliminary Blood Culture (Wb) - Anticubital Right No growth in 48 hours. 09/17/18 18:55 Blood Culture - Preliminary Blood Culture (Wb) - Left Wrist No growth in 48 hours. 09/17/18 19:45 Urine Culture - Final Urine Catheter - Robb Culture exhibits no growth. 09/18/18 Unknown C. difficile DNA Amplification - Final Stool 09/18/18 Unknown Enteric Bacteriology - Final Stool Laboratory Tests Past 24 Hrs 09/20/18 09/20/18 07:59 07:59 WBC 10.2 RBC 3.54 L Hgb 9.6 L Hct 29.3 L MCV 82.8 MCH 27.1 MCHC 32.8 RDW 18.1 H RDW Differential 54.5 H Plt Count 268 MPV 9.0 Immature Gran % (Auto) 0.300 Neut % (Auto) 67.2 Lymph % (Auto) 15.8 L [place] % (Auto) 14.9 H Eos % (Auto) 1.5 Baso % (Auto) 0.3 Absolute Neuts (auto) 6.8 Absolute Lymphs (auto) 1.60 Total Counted Not Reportable Sodium 139 Potassium 3.5 Chloride 106 Carbon Dioxide 23.0 Anion Gap 10 BUN 5 L Creatinine 0.89 Estim Creat Clear Calc 59.78 Est GFR (MDRD) Af Amer 82 Est GFR (MDRD) Non-Af 68 BUN/Creatinine Ratio 5.6 L Glucose 120 H Calcium 7.9 L Total Bilirubin 1.10 H AST 16 ALT 20 Alkaline Phosphatase 181 H Total Protein 5.5 L Albumin 2.3 L Globulin 3.2 Albumin/Globulin Ratio 0.7 L POC Glucose 09/20/18 09/20/18 09/20/18 06:51 04:04 02:27 POC Glucose 111 H 83 61 L 09/19/18 09/19/18 09/19/18 22:15 19:08 16:41 POC Glucose 99 90 87 Medical Necessity - Tobacco Use Smoking Status: Never smoker Assessment/Plan Impressions 1. febrile illness with nausea and diarrhea after recent extended course of broad spectrum antibiotics for septic shock secondary to pyelonephritis secondary to Enterococcus faecium, multidrug-resistant. Clostridium difficile and enteric pathogen panel are negative. Urine and blood cultures are negative. No 2. Recent admission to the hospital for septic shock secondary to pyelonephritis secondary to multidrug resistant Enterococcus faecium infection 3. abnormal UA with persistent pyuria - did the pyelo every completely clear? Will need to continue the Linezolid.....until the culture results are available 4. DM II -poorly controlled, recent hemoglobin A1c 10.5% 5. Hyponatremia 6. Morbid obesity 7. Hypokalemia 8. Acute kidney injury-resolved 9. Severe sepsis 10. Gastroparesis 11. GERD 12. Seizure disorder 13. PAF 14. Chronic pain syndrome 15. History of Takotsubo's cardiomyopathy with recent normal ejection fraction 16. Hyperlipidemia 17. Hypertension 18. History of depression-questionable bipolar disorder-Why is she on Haldol as needed at home and marked 19. Hypoglycemia advance the diet as tolerated DC the Lantus and use only a sliding scale for blood sugars. DC the maintenance IV Change the Accu-Cheks to before meals and at bedtime Continue lactobacillus Convert Protonix to p.o. Possible DC tomorrow if tolerating diet. will go home to her sister's with [facility] Code Visit Inpatient E&M: 00310 Subs Hosp L1
[2018-09-20 17:21] LABS: Bedside Glucose 161 mg/dL (70-110)
[2018-09-20] MEDS: Loperamide 2 MG Capsule PO (18:39)
[2018-09-20 20:52] VITALS: BP 146/68; PULSE 74; RESP 18; TEMP 36.6; O2SAT 95
[2018-09-20] MEDS: HYDROcodone Bitartrate/Apap 5/325 Tablet PO (21:00)
[2018-09-20 21:11] LABS: Bedside Glucose 137 mg/dL (70-110)
[2018-09-20] MEDS: Atorvastatin Calcium 20 MG Tablet PO (21:13)
[2018-09-20] MEDS: Pramipexole Di-HCl 0.5 MG Tablet PO (21:40)
[2018-09-20] MEDS: Azelastine HCl NASAL.SRY 2 SPRAY NASAL (22:55)
[2018-09-21 02:09] VITALS: BP 147/68; PULSE 79; RESP 18; TEMP 36.7; O2SAT 93
[2018-09-21] MEDS: Dext 5%-0.45% NS 1,000 ML 100 ML IV (02:11)
[2018-09-21] MEDS: HYDROcodone Bitartrate/Apap 5/325 Tablet PO (04:11)
[2018-09-21] MEDS: Azelastine HCl NASAL.SRY 2 SPRAY NASAL (06:48)
[2018-09-21] MEDS: Levothyroxine 75 MCG Tablet PO (06:49)
[2018-09-21] MEDS: Acyclovir 800 MG Tablet PO ×2 (06:49→10:51)
--- NOTE | 2018-09-21 06:49 | DCINST_ITS ---
You will use the following diet at home:: Calorie/Carbohydrate Controlled (specify 1200, 1400, etc), Cardiac, Other - no caffeine, no dairy for 10 days Your food should be the consistency of: Regular Your liquids should be the consistency of: Regular/Thin Discharge Activity: - - Gradually return to normal activity Call your doctor if you observe: Fever of 101 or Higher, Dizziness, Fainting spells, Chest pain, Calf discomfort, - - recurrent nausea and vomiting, more than 4 BM's a day Instructions: MyPlate Worksheet: 2,000 Calories Additional Instructions: You have required very little insulin in the hospital to keep your blood sugars controlled. What this tells me is that you are not eating a good diet at home and you need to cut down on your carbohydrate intake. I suggest you cut the Tresiba down to 80 units daily and the mealtime insulin down to 5 units with meals for a few days. Check your blood sugars before meals and at bedtime and write them down. Bring the record of the blood sugars to your next appt with Dr. Parks in 1-2 weeks. If the blood sugars are con sistently > [address] Parks for instructions on what to do with the insulin. Allergies/Adverse Reactions: Allergies ciprofloxacin [From Cipro] Allergy (Verified 08/31/18 18:46) Shortness of breath ciprofloxacin HCl [From Cipro] Allergy (Verified 08/31/18 18:46) Shortness of breath cyclobenzaprine [From Flexeril] Allergy (Verified 08/31/18 18:46) Rash cyclobenzaprine HCl [From Flexeril] Allergy (Verified 08/31/18 18:46) Rash ketorolac tromethamine [From Toradol] Allergy (Verified 08/31/18 18:46) Chest tightness sulfamethoxazole [From Bactrim] Allergy (Verified 08/31/18 18:46) Itching trimethoprim [From Bactrim] Allergy (Verified 08/31/18 18:46) Itching metformin Adverse Reaction (Verified 08/31/18 18:46) Other headache valacyclovir HCl [From Valtrex] Adverse Reaction (Verified 08/31/18 18:46) Other Medications to take at Discharge Aspirin [Aspirin, Baby] 81 mg PO DAILY 05/07/16 Ropinirole HCl [Requip] 1 mg PO QHS 05/07/16 lamotrigine 100 mg tablet 100 mg PO BID 03/24/18 Ondansetron [Zofran] 8 mg PO Q6H PRN PRN 05/23/18 carvedilol 3.125 mg tablet 3.125 mg PO BID #180 tab 08/14/18 proMETHazine tablet [Phenergan tablet] 25 mg PO Q6H PRN PRN #10 tab 08/17/18 Naloxegol Oxalate [Movantik] 12.5 mg PO QHS 08/19/18 Insulin Degludec [Tresiba Flextouch U-200] 200 unit SQ DAILY 08/31/18 Insulin Regular, Human [Humulin R] 20 unit SQ TID 08/31/18 Nystatin Powder [Mycostatin Powder] 1 applic TOPICAL TID 08/31/18 Allopurinol 100 mg PO DAILY 09/17/18 Haloperidol 1 mg PO TID PRN PRN 09/17/18 Levothyroxine Sodium 75 mcg PO DAILY 09/17/18 Losartan Potassium 100 mg PO DAILY 09/17/18 Pregabalin [Lyrica] 225 mg PO BID 09/17/18 Simvastatin 40 mg PO QHS 09/17/18 Valacyclovir HCl [Valacyclovir] 1,000 mg PO TID 09/17/18 Primary Care Physician: Devan Parks MD [Primary Care Provider] - Please follow up with your Primary Care Physician in: 1-2 weeks Test Results: Test results from this visit will be discussed in further detail at your follow- up appointment, if applicable. Proposed Discharge Date: 09/21/18
[2018-09-21] MEDS: Insulin Lispro 100 UNIT/ML INSULN.PEN SQ ×2 (06:50→10:59)
[2018-09-21 06:51] LABS: Bedside Glucose 161 mg/dL (70-110)
[2018-09-21] MEDS: Nystatin Powder 15gm Bottle 1 APPLIC TOPICAL (06:52)
[2018-09-21] MEDS: Menthol/Lanolin/Calamine/Znox 113 GM Tube 1 APPLIC TOPICAL (06:52)
--- NOTE | 2018-09-21 06:56 | PCM.DC.SUM ---
Discharge Date and Diagnosis - Problem List Patient Problems: Active and Suspected Problems (Last Updated 09/17/18 @ 21:26 by Fina Huertas MD) Hypoglycemia (Acute) Acute kidney injury (Acute) Hypokalemia (Acute) Hyponatremia (Acute) Noninfective enterocolitis (Acute) Date of Admission: 09/17/18 Date of Discharge: 09/21/18 - Primary Discharge Diagnosis Active and Suspected Problems (Last Updated 09/17/18 @ 21:26 by Fina Huertas MD) Noninfective enterocolitis (Acute) - due to Linezolid Hypoglycemia (Acute) Acute kidney injury (Acute) - due to dehydration Hypokalemia (Acute) Hyponatremia (Acute) - Secondary Discharge Diagnosis Chronic Problems (Last Updated 09/17/18 @ 21:26 by Fina Huertas MD) Fibromyalgia (Chronic) Congestive heart failure (Chronic) Type 2 diabetes mellitus (Chronic) uncontrolled 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) Diabetic gastroparesis (Chronic) Weakness of both lower extremities (Chronic) GERD (gastroesophageal reflux disease) (Chronic) Seizure disorder (Chronic) Paroxysmal atrial fibrillation (Chronic) Chronic pain syndrome (Chronic) Takotsubo cardiomyopathy (Chronic) Iron deficiency anemia (Chronic) Depression (Chronic) Morbid obesity with BMI of 40.0-44.9, adult (Chronic) HLD (hyperlipidemia) (Chronic) Benign essential HTN (Chronic) Hospital Course and Treatment Imaging Results: Clinical Impression(s) from Imaging Studies Chest X-Ray 09/17/18 19:00 IMPRESSION: No acute findings Electronically Signed: Chintan Steele MD at 19:22 EST , Service support , Hip/Pelvis X-Ray 09/19/18 08:45 IMPRESSION: Degenerative changes. No acute abnormality is seen. Electronically Signed: Tristan De La Garza MD at 13:38 EST , Service support , Laboratory Results - last 24 hr 09/20/18 09/20/18 09/20/18 06:51 07:59 07:59 WBC 10.2 RBC 3.54 L Hgb 9.6 L Hct 29.3 L MCV 82.8 MCH 27.1 MCHC 32.8 RDW 18.1 H RDW Differential 54.5 H Plt Count 268 MPV 9.0 Immature Gran % (Auto) 0.300 Neut % (Auto) 67.2 Lymph % (Auto) 15.8 L [place] % (Auto) 14.9 H Eos % (Auto) 1.5 Baso % (Auto) 0.3 Absolute Neuts (auto) 6.8 Absolute Lymphs (auto) 1.60 Total Counted Not Reportable Sodium 139 Potassium 3.5 Chloride 106 Carbon Dioxide 23.0 Anion Gap 10 BUN 5 L Creatinine 0.89 Estim Creat Clear Calc 59.78 Est GFR (MDRD) Af Amer 82 Est GFR (MDRD) Non-Af 68 BUN/Creatinine Ratio 5.6 L Glucose 120 H Calcium 7.9 L Total Bilirubin 1.10 H AST 16 ALT 20 Alkaline Phosphatase 181 H Total Protein 5.5 L Albumin 2.3 L Globulin 3.2 Albumin/Globulin Ratio 0.7 L POC Glucose 111 H 09/20/18 09/20/18 09/21/18 17:10 21:05 06:26 WBC RBC Hgb Hct MCV MCH MCHC RDW RDW Differential Plt Count MPV Immature Gran % (Auto) Neut % (Auto) Lymph % (Auto) [place] % (Auto) Eos % (Auto) Baso % (Auto) Absolute Neuts (auto) Absolute Lymphs (auto) Total Counted Sodium Potassium Chloride Carbon Dioxide Anion Gap BUN Creatinine Estim Creat Clear Calc Est GFR (MDRD) Af Amer Est GFR (MDRD) Non-Af BUN/Creatinine Ratio Glucose Calcium Total Bilirubin AST ALT Alkaline Phosphatase Total Protein Albumin Globulin Albumin/Globulin Ratio POC Glucose 161 H 137 H 161 H Microbiology 09/17/18 19:05 Blood Culture (Wb) - Anticubital Right Blood Culture - Preliminary No growth in 48 hours. 09/17/18 18:55 Blood Culture (Wb) - Left Wrist Blood Culture - Preliminary No growth in 48 hours. 09/17/18 19:45 Urine Catheter - Robb Urine Culture - Final Culture exhibits no growth. 09/18/18 Unknown Stool C. difficile DNA Amplification - Final 09/18/18 Unknown Stool Enteric Bacteriology - Final none Operations: None, - - EGD Procedures: None Summary of Care Provided: The patient is a 63-year-old female with a past medical history of diabetes mellitus type 2, gastroparesis, GERD, seizure disorder, paroxysmal atrial fibrillation, chronic pain syndrome, Takotsubo's cardiomyopathy, iron deficiency anemia, depression, hyperlipidemia, morbid obesity and hypertension who presented to the emergency department at [place] on 09/17/2018 complaining of fever, generalized weakness, nausea/vomiting/diarrhea. She had recently been discharged from the hospital on 09/04/2018 after being admitted for acute kidney injury, septic shock, acute pyelonephritis due to a MDR Enterococcus Faecium and hyperkalemia. She was discharged on Zyvox. On 09/12/2018 she saw her PCP in the office and was placed on valacyclovir for shingles. Vital signs at presentation to the emergency room were temperature 101.3, pulse rate 90, blood pressure 147/79, respiratory rate 23 and she was 90% saturated on room air and 94% saturated on a 2 L nasal cannula. White blood cell count was 7.9 with an unremarkable differential. Hemoglobin was 10.3 and platelets were 198,000. Sodium was low at 130 and the chloride was 96. BUN was 13 with a creatinine of 2.19 and the creatinine at discharge from the hospital on 09/04/2018 was 1.11. Lactic acid was 0.9. Transaminases were unremarkable. The bilirubin was 1.3 and the alk phos was elevated at 179. UA showed 10-25 WBCs per high-power field with no squamous epithelial cells. MRSA screen was negative. Blood and urine cultures were sent from the emergency department and she was admitted to the hospital and started on Zosyn. She was transitioned to Zyvox due to suspicion for persistent enterococcus Faecium infection. Enteric pathogen panel and CDIFF were ordered and both were negative. Blood and urine cultures were also negative. Zyvox was discontinued and the nausea and vomiting resolved. Diet was advanced as tolerated and on 09/21/18 she had no Nausea and no emesis. Loose stool had resolved. Creatinine had decreased to 0.89 with a BUN of 5. Blood sugars while in the hospital were controlled with minimal Humalog and no Long acting insulin. Diet changes were advised. she was instructed to check her blood sugars for the next 1-2 weeks 4 times a day and take the record of the blood sugars to her next visit with Dr. Parks so he can adjust the insulin. she will take a decreased dose of the Tresiba and Humalog at [place] and call Dr. Parks for instruction if the blood sugars are consistently > 200. She was discharged with [facility] and she is going home with her sister. - Physical Exam General: Alert, Oriented x3, Cooperative, No apparent distress Oral: Moist Mucosa Neck: Supple Lungs: Clear to auscultation Cardiovascular: Regular rate, Regular Rhythm, Normal S1, Normal S2 Abdomen: Bowel Sounds Present, Soft, Non Tender, Non-Distended Extremities: No edema This note was generated with [employer] dictation software. It may contain incorrect words, spelling, and punctuation that were not noted in checking the note before signing. Patient Problems: Active and Suspected Problems (Last Updated 09/17/18 @ 21:26 by Fina Huertas MD) Hypoglycemia (Acute) Acute kidney injury (Acute) Hypokalemia (Acute) Hyponatremia (Acute) Noninfective enterocolitis (Acute) - Physical Exam Vital Signs Temp Pulse Resp BP Pulse Ox 98.1 F 79 18 147/68 H 93 09/21/18 02:09 09/21/18 02:09 09/21/18 02:09 09/21/18 02:09 09/21/18 02:09 Oxygen Flow Rate (L/min) 1 Oxygen Delivery Method Room Air Weight: 265 lb 3.457 oz Body Mass Index (BMI) 42.7 Finger Stick Blood Glucose 279 Intake and Output for Last 24 Hours 09/19/18 09/20/18 09/21/18 23:59 23:59 23:59 Intake Total 4814 / 4814 3166 / 3166 2097 / 2097 Output Total 2600 / 2600 1999 / 1999 1200 / 1200 Balance 2214 / 2214 1166 / 1166 897 / 897 Microbiology Past 72 Hours 09/17/18 19:05 Blood Culture - Preliminary Blood Culture (Wb) - Anticubital Right No growth in 48 hours. 09/17/18 18:55 Blood Culture - Preliminary Blood Culture (Wb) - Left Wrist No growth in 48 hours. 09/17/18 19:45 Urine Culture - Final Urine Catheter - Robb Culture exhibits no growth. 09/18/18 Unknown C. difficile DNA Amplification - Final Stool 09/18/18 Unknown Enteric Bacteriology - Final Stool Laboratory Tests Past 24 Hrs 09/20/18 09/20/18 07:59 07:59 WBC 10.2 RBC 3.54 L Hgb 9.6 L Hct 29.3 L MCV 82.8 MCH 27.1 MCHC 32.8 RDW 18.1 H RDW Differential 54.5 H Plt Count 268 MPV 9.0 Immature Gran % (Auto) 0.300 Neut % (Auto) 67.2 Lymph % (Auto) 15.8 L [place] % (Auto) 14.9 H Eos % (Auto) 1.5 Baso % (Auto) 0.3 Absolute Neuts (auto) 6.8 Absolute Lymphs (auto) 1.60 Total Counted Not Reportable Sodium 139 Potassium 3.5 Chloride 106 Carbon Dioxide 23.0 Anion Gap 10 BUN 5 L Creatinine 0.89 Estim Creat Clear Calc 59.78 Est GFR (MDRD) Af Amer 82 Est GFR (MDRD) Non-Af 68 BUN/Creatinine Ratio 5.6 L Glucose 120 H Calcium 7.9 L Total Bilirubin 1.10 H AST 16 ALT 20 Alkaline Phosphatase 181 H Total Protein 5.5 L Albumin 2.3 L Globulin 3.2 Albumin/Globulin Ratio 0.7 L POC Glucose 09/21/18 09/20/18 09/20/18 06:26 21:05 17:10 POC Glucose 161 H 137 H 161 H 09/20/18 06:51 POC Glucose 111 H Discharge Activity: - - Gradually return to normal activity Call your doctor if you observe: Fever of 101 or Higher, Dizziness, Fainting spells, Chest pain, Calf discomfort, - - recurrent nausea and vomiting, more than 4 BM's a day Home Medications: Medications to take at Discharge Aspirin [Aspirin, Baby] 81 mg PO DAILY 05/07/16 Ropinirole HCl [Requip] 1 mg PO QHS 05/07/16 lamotrigine 100 mg tablet 100 mg PO BID 03/24/18 Ondansetron [Zofran] 8 mg PO Q6H PRN PRN 05/23/18 carvedilol 3.125 mg tablet 3.125 mg PO BID #180 tab 08/14/18 proMETHazine tablet [Phenergan tablet] 25 mg PO Q6H PRN PRN #10 tab 08/17/18 Naloxegol Oxalate [Movantik] 12.5 mg PO QHS 08/19/18 Insulin Degludec [Tresiba Flextouch U-200] 200 unit SQ DAILY 08/31/18 Insulin Regular, Human [Humulin R] 20 unit SQ TID 08/31/18 Nystatin Powder [Mycostatin Powder] 1 applic TOPICAL TID 08/31/18 Allopurinol 100 mg PO DAILY 09/17/18 Haloperidol 1 mg PO TID PRN PRN 09/17/18 Levothyroxine Sodium 75 mcg PO DAILY 09/17/18 Losartan Potassium 100 mg PO DAILY 09/17/18 Pregabalin [Lyrica] 225 mg PO BID 09/17/18 Simvastatin 40 mg PO QHS 09/17/18 Valacyclovir HCl [Valacyclovir] 1,000 mg PO TID 09/17/18 Primary Care Physician: Devan Parks MD [Primary Care Provider] - Please follow up with your Primary Care Physician in: 1-2 weeks Patient Instructions: MyPlate Worksheet: 2,000 Calories Disposition: Home with Home Health Minutes spent on discharge:: 30 Patient Condition:: Good Medical Necessity - Tobacco Use Smoking Status: Never smoker Tobacco Use: Non-smoker Meaningful Use Info Meaningful Use Diagnoses (Choose all that apply): None applicable Code Visit Inpatient E&M: 73103 Disch Hosp
--- NOTE | 2018-09-21 07:10 | DS.PCM_ITS ---
Discharge Date and Diagnosis - Problem List Patient Problems: Active and Suspected Problems (Last Updated 09/17/18 @ 21:26 by Fina Huertas MD) Hypoglycemia (Acute) Acute kidney injury (Acute) Hypokalemia (Acute) Hyponatremia (Acute) Noninfective enterocolitis (Acute) Date of Admission: 09/17/18 Date of Discharge: 09/21/18 - Primary Discharge Diagnosis Active and Suspected Problems (Last Updated 09/17/18 @ 21:26 by Fina Huertas MD) Noninfective enterocolitis (Acute) - due to Linezolid Hypoglycemia (Acute) Acute kidney injury (Acute) - due to dehydration Hypokalemia (Acute) Hyponatremia (Acute) - Secondary Discharge Diagnosis Chronic Problems (Last Updated 09/17/18 @ 21:26 by Fina Huertas MD) Fibromyalgia (Chronic) Congestive heart failure (Chronic) Type 2 diabetes mellitus (Chronic) uncontrolled 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) Diabetic gastroparesis (Chronic) Weakness of both lower extremities (Chronic) GERD (gastroesophageal reflux disease) (Chronic) Seizure disorder (Chronic) Paroxysmal atrial fibrillation (Chronic) Chronic pain syndrome (Chronic) Takotsubo cardiomyopathy (Chronic) Iron deficiency anemia (Chronic) Depression (Chronic) Morbid obesity with BMI of 40.0-44.9, adult (Chronic) HLD (hyperlipidemia) (Chronic) Benign essential HTN (Chronic) Hospital Course and Treatment Imaging Results: Clinical Impression(s) from Imaging Studies Chest X-Ray 09/17/18 19:00 IMPRESSION: No acute findings Electronically Signed: Chintan Steele MD at 19:22 EST , Service support , Hip/Pelvis X-Ray 09/19/18 08:45 IMPRESSION: Degenerative changes. No acute abnormality is seen. Electronically Signed: Tristan De La Garza MD at 13:38 EST , Service support , Laboratory Results - last 24 hr 09/20/18 09/20/18 09/20/18 06:51 07:59 07:59 WBC 10.2 RBC 3.54 L Hgb 9.6 L Hct 29.3 L MCV 82.8 MCH 27.1 MCHC 32.8 RDW 18.1 H RDW Differential 54.5 H Plt Count 268 MPV 9.0 Immature Gran % (Auto) 0.300 Neut % (Auto) 67.2 Lymph % (Auto) 15.8 L [place] % (Auto) 14.9 H Eos % (Auto) 1.5 Baso % (Auto) 0.3 Absolute Neuts (auto) 6.8 Absolute Lymphs (auto) 1.60 Total Counted Not Reportable Sodium 139 Potassium 3.5 Chloride 106 Carbon Dioxide 23.0 Anion Gap 10 BUN 5 L Creatinine 0.89 Estim Creat Clear Calc 59.78 Est GFR (MDRD) Af Amer 82 Est GFR (MDRD) Non-Af 68 BUN/Creatinine Ratio 5.6 L Glucose 120 H Calcium 7.9 L Total Bilirubin 1.10 H AST 16 ALT 20 Alkaline Phosphatase 181 H Total Protein 5.5 L Albumin 2.3 L Globulin 3.2 Albumin/Globulin Ratio 0.7 L POC Glucose 111 H 09/20/18 09/20/18 09/21/18 17:10 21:05 06:26 WBC RBC Hgb Hct MCV MCH MCHC RDW RDW Differential Plt Count MPV Immature Gran % (Auto) Neut % (Auto) Lymph % (Auto) [place] % (Auto) Eos % (Auto) Baso % (Auto) Absolute Neuts (auto) Absolute Lymphs (auto) Total Counted Sodium Potassium Chloride Carbon Dioxide Anion Gap BUN Creatinine Estim Creat Clear Calc Est GFR (MDRD) Af Amer Est GFR (MDRD) Non-Af BUN/Creatinine Ratio Glucose Calcium Total Bilirubin AST ALT Alkaline Phosphatase Total Protein Albumin Globulin Albumin/Globulin Ratio POC Glucose 161 H 137 H 161 H Microbiology 09/17/18 19:05 Blood Culture (Wb) - Anticubital Right Blood Culture - Preliminary No growth in 48 hours. 09/17/18 18:55 Blood Culture (Wb) - Left Wrist Blood Culture - Preliminary No growth in 48 hours. 09/17/18 19:45 Urine Catheter - Robb Urine Culture - Final Culture exhibits no growth. 09/18/18 Unknown Stool C. difficile DNA Amplification - Final 09/18/18 Unknown Stool Enteric Bacteriology - Final none Operations: None, - - EGD Procedures: None Summary of Care Provided: The patient is a 63-year-old female with a past medical history of diabetes mellitus type 2, gastroparesis, GERD, seizure disorder, paroxysmal atrial fibrillation, chronic pain syndrome, Takotsubo's cardiomyopathy, iron deficiency anemia, depression, hyperlipidemia, morbid obesity and hypertension who presented to the emergency department at [facility] on 09/17/2018 complaining of fever, generalized weakness, nausea/vomiting/diarrhea. She had recently been discharged from the hospital on 09/04/2018 after being admitted for acute kidney injury, septic shock, acute pyelonephritis due to a MDR Enterococcus Faecium and hyperkalemia. She was discharged on Zyvox. On 09/12/2018 she saw her PCP in the office and was placed on valacyclovir for shingles. Vital signs at presentation to the emergency room were temperature 101.3, pulse rate 90, blood pressure 147/79, respiratory rate 23 and she was 90% saturated on room air and 94% saturated on a 2 L nasal cannula. White blood cell count was 7.9 with an unremarkable differential. Hemoglobin was 10.3 and platelets were 198,000. Sodium was low at 130 and the chloride was 96. BUN was 13 with a creatinine of 2.19 and the creatinine at discharge from the hospital on 09/04/2018 was 1.11. Lactic acid was 0.9. Transaminases were unremarkable. The bilirubin was 1.3 and the alk phos was elevated at 179. UA showed 10-25 WBCs per high-power field with no squamous epithelial cells. MRSA screen was negative. Blood and urine cultures were sent from the emergency department and she was admitted to the hospital and started on Zosyn. She was transitioned to Zyvox due to suspicion for persistent enterococcus Faecium infection. Enteric pathogen panel and CDIFF were ordered and both were negative. Blood and urine cultures were also negative. Zyvox was discontinued and the nausea and vomiting resolved. Diet was advanced as tolerated and on 09/21/18 she had no Nausea and no emesis. Loose stool had resolved. Creatinine had decreased to 0.89 with a BUN of 5. Blood sugars while in the hospital were controlled with minimal Humalog and no Long acting insulin. Diet changes were advised. she was instructed to check her blood sugars for the next 1-2 weeks 4 times a day and take the record of the blood sugars to her next visit with Dr. Parks so he can adjust the insulin. she will take a decreased dose of the Tresiba and Humalog at [place] and call Dr. Parks for instruction if the blood sugars are consistently > 200. She was discharged with [facility] and she is going home with her sister. - Physical Exam General: Alert, Oriented x3, Cooperative, No apparent distress Oral: Moist Mucosa Neck: Supple Lungs: Clear to auscultation Cardiovascular: Regular rate, Regular Rhythm, Normal S1, Normal S2 Abdomen: Bowel Sounds Present, Soft, Non Tender, Non-Distended Extremities: No edema This note was generated with [employer] dictation software. It may contain incorrect words, spelling, and punctuation that were not noted in checking the note before signing. Patient Problems: Active and Suspected Problems (Last Updated 09/17/18 @ 21:26 by Fina Huertas MD) Hypoglycemia (Acute) Acute kidney injury (Acute) Hypokalemia (Acute) Hyponatremia (Acute) Noninfective enterocolitis (Acute) - Physical Exam Vital Signs Temp Pulse Resp BP Pulse Ox 98.1 F 79 18 147/68 H 93 09/21/18 02:09 09/21/18 02:09 09/21/18 02:09 09/21/18 02:09 09/21/18 02:09 Oxygen Flow Rate (L/min) 1 Oxygen Delivery Method Room Air Weight: 265 lb 3.457 oz Body Mass Index (BMI) 42.7 Finger Stick Blood Glucose 279 Intake and Output for Last 24 Hours 09/19/18 09/20/18 09/21/18 23:59 23:59 23:59 Intake Total 4814 / 4814 3166 / 3166 2097 / 2097 Output Total 2600 / 2600 1999 / 1999 1200 / 1200 Balance 2214 / 2214 1166 / 1166 897 / 897 Microbiology Past 72 Hours 09/17/18 19:05 Blood Culture - Preliminary Blood Culture (Wb) - Anticubital Right No growth in 48 hours. 09/17/18 18:55 Blood Culture - Preliminary Blood Culture (Wb) - Left Wrist No growth in 48 hours. 09/17/18 19:45 Urine Culture - Final Urine Catheter - Robb Culture exhibits no growth. 09/18/18 Unknown C. difficile DNA Amplification - Final Stool 09/18/18 Unknown Enteric Bacteriology - Final Stool Laboratory Tests Past 24 Hrs 09/20/18 09/20/18 07:59 07:59 WBC 10.2 RBC 3.54 L Hgb 9.6 L Hct 29.3 L MCV 82.8 MCH 27.1 MCHC 32.8 RDW 18.1 H RDW Differential 54.5 H Plt Count 268 MPV 9.0 Immature Gran % (Auto) 0.300 Neut % (Auto) 67.2 Lymph % (Auto) 15.8 L [place] % (Auto) 14.9 H Eos % (Auto) 1.5 Baso % (Auto) 0.3 Absolute Neuts (auto) 6.8 Absolute Lymphs (auto) 1.60 Total Counted Not Reportable Sodium 139 Potassium 3.5 Chloride 106 Carbon Dioxide 23.0 Anion Gap 10 BUN 5 L Creatinine 0.89 Estim Creat Clear Calc 59.78 Est GFR (MDRD) Af Amer 82 Est GFR (MDRD) Non-Af 68 BUN/Creatinine Ratio 5.6 L Glucose 120 H Calcium 7.9 L Total Bilirubin 1.10 H AST 16 ALT 20 Alkaline Phosphatase 181 H Total Protein 5.5 L Albumin 2.3 L Globulin 3.2 Albumin/Globulin Ratio 0.7 L POC Glucose 09/21/18 09/20/18 09/20/18 06:26 21:05 17:10 POC Glucose 161 H 137 H 161 H 09/20/18 06:51 POC Glucose 111 H Discharge Activity: - - Gradually return to normal activity Call your doctor if you observe: Fever of 101 or Higher, Dizziness, Fainting spells, Chest pain, Calf discomfort, - - recurrent nausea and vomiting, more than 4 BM's a day Home Medications: Medications to take at Discharge Aspirin [Aspirin, Baby] 81 mg PO DAILY 05/07/16 Ropinirole HCl [Requip] 1 mg PO QHS 05/07/16 lamotrigine 100 mg tablet 100 mg PO BID 03/24/18 Ondansetron [Zofran] 8 mg PO Q6H PRN PRN 05/23/18 carvedilol 3.125 mg tablet 3.125 mg PO BID #180 tab 08/14/18 proMETHazine tablet [Phenergan tablet] 25 mg PO Q6H PRN PRN #10 tab 08/17/18 Naloxegol Oxalate [Movantik] 12.5 mg PO QHS 08/19/18 Insulin Degludec [Tresiba Flextouch U-200] 200 unit SQ DAILY 08/31/18 Insulin Regular, Human [Humulin R] 20 unit SQ TID 08/31/18 Nystatin Powder [Mycostatin Powder] 1 applic TOPICAL TID 08/31/18 Allopurinol 100 mg PO DAILY 09/17/18 Haloperidol 1 mg PO TID PRN PRN 09/17/18 Levothyroxine Sodium 75 mcg PO DAILY 09/17/18 Losartan Potassium 100 mg PO DAILY 09/17/18 Pregabalin [Lyrica] 225 mg PO BID 09/17/18 Simvastatin 40 mg PO QHS 09/17/18 Valacyclovir HCl [Valacyclovir] 1,000 mg PO TID 09/17/18 Primary Care Physician: Devan Parks MD [Primary Care Provider] - Please follow up with your Primary Care Physician in: 1-2 weeks Patient Instructions: MyPlate Worksheet: 2,000 Calories Disposition: Home with Home Health Minutes spent on discharge:: 30 Patient Condition:: Good Medical Necessity - Tobacco Use Smoking Status: Never smoker Tobacco Use: Non-smoker Meaningful Use Info Meaningful Use Diagnoses (Choose all that apply): None applicable Code Visit Inpatient E&M: 20162 Disch Hosp
[2018-09-21 07:18] VITALS: O2SAT 91
[2018-09-21 07:46] VITALS: BP 142/59; PULSE 88; RESP 16; TEMP 37; O2SAT 93
[2018-09-21] MEDS: Carvedilol 3.125 MG TABLET PO (10:51)
[2018-09-21] MEDS: lamoTRIgine 100 MG Tablet PO (10:51)
[2018-09-21] MEDS: Allopurinol 100 MG Tablet PO (10:51)
[2018-09-21] MEDS: Aspirin 81 MG TAB.CHEW PO (10:52)
[2018-09-21] MEDS: Loperamide 2 MG Capsule PO (10:53)
[2018-09-21] MEDS: Pregabalin 75 MG Capsule 225 MG PO (10:55)
[2018-09-21] MEDS: Pantoprazole Sodium 40 MG Tablet PO (10:55)
[2018-09-21 11:11] LABS: Bedside Glucose 218 mg/dL (70-110)
--- NOTE | 2018-09-22 13:50 | CASEMGMT ---
ALMA KLINE DC PHONE CALL DC DATE: 09/21/18 DC DISPOSITION: Home with HHS LACE/STRATA: 02/12 Message left with given phone #. Call back information included if pt had questions re: dc instructions, prescriptions, f/u. A.Norberto BSN RN AC
== END 2018-09-21 12:54 | disposition home or self-care (01) | DRG 394 ==
LOC: ED 20:56 → MS3 21:21
PROVIDERS: Admitting Provider Hospitalist; Emergency Provider Emergency Medicine; Family Provider Family Medicine; PCP Family Medicine; Referring Provider Hospitalist; Visit Provider Internal Medicine
DX: K52.1 Toxic gastroenteritis and colitis (principal); N17.9 Acute kidney failure, unspecified; Z68.41 Body mass index [BMI] 40.0-44.9, adult; E87.1 Hypo-osmolality and hyponatremia; I13.0 Hypertensive heart and chronic kidney disease with heart failure and stage 1 through stage 4 chronic kidney disease, or unspecified chronic kidney disease; T36.8X5A Adverse effect of other systemic antibiotics, initial encounter; E11.43 Type 2 diabetes mellitus with diabetic autonomic (poly)neuropathy; K31.84 Gastroparesis; B02.9 Zoster without complications; E11.65 Type 2 diabetes mellitus with hyperglycemia; G40.909 Epilepsy, unspecified, not intractable, without status epilepticus; I48.0 Paroxysmal atrial fibrillation; E78.5 Hyperlipidemia, unspecified; D50.9 Iron deficiency anemia, unspecified; E66.01 Morbid (severe) obesity due to excess calories; E87.6 Hypokalemia; G89.4 Chronic pain syndrome; E86.0 Dehydration; E11.649 Type 2 diabetes mellitus with hypoglycemia without coma; K21.9 Gastro-esophageal reflux disease without esophagitis; F32.9 Major depressive disorder, single episode, unspecified; Z79.4 Long term (current) use of insulin; I25.2 Old myocardial infarction; E11.22 Type 2 diabetes mellitus with diabetic chronic kidney disease; N18.3 Chronic kidney disease, stage 3 (moderate); I50.9 Heart failure, unspecified; M79.7 Fibromyalgia
CPT/HCPCS: 36415; 51702; 71045; 73501; 80048; 80053; 81001; 82947; 82962; 83605; 83735; 84100; 85025; 85610; 85730; 87040; 87086; 87493; 87506; 87641; 93005; 94640; 97116; 97162; 97165; 97530; 97535; 97802; 99285; J2020; J7030; A4216; J2405; J7799

== ENCOUNTER 2018-11-30 14:54 | Emergency (ER) | payer MEDICARE, SELFPAY ==
[2018-09-17 21:46] VITALS: BMI 42.7
[2018-11-30 14:55] VITALS: BP 158/88; PULSE 72; RESP 17; TEMP 36.7; O2SAT 93; BMI 41.1
[2018-11-30 15:10] VITALS: O2SAT 93
--- NOTE | 2018-11-30 15:46 | RAD_ITS ---
STUDY: X-RAY CHEST REASON FOR EXAM: Female, 63 years old. Cough congestion TECHNIQUE: PA and lateral views of the chest. COMPARISON: September 17, 2018 FINDINGS: There is a suggestion of minimal peribronchial thickening. There is no demonstrated pleural abnormality. There is borderline cardiomegaly. Normal mediastinum and judith. Normal visualized pulmonary arteries. Normal visualized aortic arch and descending thoracic aorta. Normal visualized thoracic spine. Normal visualized ribs, clavicles, and shoulders. There is no demonstrated abnormality of the visualized soft tissue structures of the upper abdomen. RAD/Chest PA and Lateral IMPRESSION: Consider possible bronchitis. No visualized focal consolidation. Limited study. Electronically Signed: Alexandra Gunter MD at 16:24 EDT Tel , Service support ,
--- NOTE | 2018-11-30 15:47 | ED.VISSUMM ---
- ER Visit Summary Date of Service: 11/30/18 Chief Complaint: Cough, shortness of breath History of Present Illness: The patient is a 63 F 3-day history of worsening cough and shortness of breath. Started out with sinus congestion went down her lungs. Reports fever of 101 yesterday. Chills yesterday. Saw PCP yesterday was given IM antibiotics and started on Zithromax for 7 days. States influenza was negative for his wheezing. Denies history of asthma or COPD. Denies tobacco history. Denies chest pains. Tylenol 6 AM this morning. States has posttussive emesis. Currently nauseated. Reports sore throat. Denies sick contacts. Reports feels dehydrated. Physical Examination: General: Alert and oriented ?3, no acute distress HEENT: Normocephalic, atraumatic. Moist mucosa membranes. TMs normal bilaterally. No posterior pharyngeal erythema. No swollen turbinates. Bilateral maxillary sinus tenderness. Neck: supple, nontender. Cardiovascular: Regular rate and rhythm, no murmurs Respiratory: Right lower lobe expiratory wheeze. No distress Abdomen: Soft, nontender, nondistended Extremities: Nontender, no edema, pulses intact ?4 Neuro: no focal neurological deficits. Test Results: Chest x-ray peribronchial thickening no infiltrates. White count 17. Glucose 380 creatinine 1.09 sodium 128. Anion gap 10. Emergency Department Course and Treatment: Patient nontoxic vital signs stable. She is on antibiotics for bronchitis symptoms. Mild wheezing improved with aerosol treatments. Given Zofran and Tylenol for additional symptoms workup had a white count 17 glucose 380 with normal gap. She is not toxic. Sodium 128 likely is pseudo-from elevated glucose. She is ambulated with a pulse ox that was stable. Tolerating oral fluids. She has inhaler at home she will finish her antibiotics. Reports has Phenergan and Haldol home for her nausea symptoms. Signs and symptoms discussed return. Otherwise follow-up with her PCP. All questions were answered. Treatment Plan: [] Disposition: Discharge Impression: 1. Acute bronchitis 2. Elevated glucose This note was generated with [employer] software. It may contain incorrect words, spelling, and punctuation that were not noted in review of the chart prior to signing ED Disposition - Plan for ED Patient: Disposition: Home or Assisted Living Diagnosis: Acute bronchitis, Elevated glucose Instructions: Acute Bronchitis Referrals: Devan Parks MD [Primary Care Provider] - 1-2 Days if not improving Additional Instructions: glucose 380, WBC 17. CXR no pneumonia. Finish your antibiotics.
[2018-11-30] MEDS: Ipratropium/Albuterol Sulfate 3 ML AMPUL.NEB INHALATION (15:58)
[2018-11-30] MEDS: Ondansetron 4 MG/2 ML Vial IV (16:00)
[2018-11-30] MEDS: 0.9% Normal Saline 1,000 ML 1000 ML IV (16:00)
[2018-11-30] MEDS: Acetaminophen 500 MG Tablet 1000 MG PO (16:00)
[2018-11-30 16:13] LABS: Absolute Neutrophil Count 14.8 X10^3/uL (2.0-7.7); Basophil# 0.05 X10^3/uL; Basophil% 0.3 % (0-1); Eosinophil# 0.24 X10^3/uL; Eosinophils% 1.4 % (0-5); Hematocrit 36.6 % (37-47); Hemoglobin 11.9 g/dl (12.0-15.0); Lymphocyte % 5.1 % (19-41); Mean Corp Hgb Conc 32.5 g/gl (32-36); Mean Corpuscular Hgb 25.1 pg (27.0-32.0); Mean Corpuscular Volume 77.2 fL (81-99); Mean Platelet Vol. 9.1 fl (6.2-12.0); Monocyte# 1.69 X10^3/uL; Monocyte% 9.5 % (0-10); Neutrophil # 14.82 X10^3/uL (2.7-7.7); Neutrophil % 83.5 % (47-70); Platelet Count 296 K/mm3 (150-450); RBC Distribution Width CV 16.3 % (11.6-14.6); RBC Distribution Width SD 46.4 fl (35.1-43.9); Red Blood Count 4.74 M/mm3 (4.2-5.4); White Blood Count 17.7 K/mm3 (4.4-11.0)
[2018-11-30 16:14] LABS: Differential Indicated SCAN CRITERIA MET; POSITIVE COUNT NO; POSITIVE DIFFERENTIAL YES; POSITIVE MORPHOLOGY NO
[2018-11-30 16:16] VITALS: PULSE 79; RESP 20
[2018-11-30 16:20] LABS: Anion Gap 10 (5-15); BUN 10 mg/dL (7-18); BUN/Creat Ratio 9.2 RATIO (10-20); Calcium,Total 8.9 mg/dL (8.5-10.1); Chloride 93 mmol/L (98-107); Creatinine, Serum 1.09 mg/dL (0.55-1.02); EST Glomerular Filtration Rate 54 mL/min (>60); Est Glom Filt Rate - Afr Amer 65 mL/min (>60); Estimated Creatinine Clearance 48.81 ml/min; Glucose 380 mg/dL (74-106); Potassium 4.1 mmol/L (3.5-5.1); Sodium Level 128 mmol/L (136-145)
[2018-11-30 17:00] VITALS: BP 193/73; O2SAT 92
[2018-11-30 17:01] LABS: Differential Comment SCANNED
[2018-11-30 17:25] VITALS: O2SAT 95
[2018-11-30 18:22] VITALS: BP 179/89; PULSE 85; RESP 18; O2SAT 95
== END 2018-11-30 18:23 | disposition home or self-care (01) ==
PROVIDERS: Emergency Provider Emergency Medicine; Family Provider Family Medicine; PCP Family Medicine
DX: J20.9 Acute bronchitis, unspecified (principal); E11.65 Type 2 diabetes mellitus with hyperglycemia; E66.9 Obesity, unspecified; I10 Essential (primary) hypertension; Z79.4 Long term (current) use of insulin; Z79.899 Other long term (current) drug therapy
CPT/HCPCS: 71046; 80048; 85025; 94640; 96361; 96374; 99283; J2405

== ENCOUNTER → 2019-01-06 | Outpatient (CLI) | payer MEDICARE, SELFPAY ==
[2019-01-06 15:56] LABS: Hematocrit 34.2 % (37-47); Hemoglobin 11.1 g/dl (12.0-15.0); Mean Corp Hgb Conc 32.5 g/gl (32-36); Mean Corpuscular Hgb 25.2 pg (27.0-32.0); Mean Corpuscular Volume 77.7 fL (81-99); Mean Platelet Vol. 9.8 fl (6.2-12.0); Platelet Count 306 K/mm3 (150-450); RBC Distribution Width CV 16.5 % (11.6-14.6); RBC Distribution Width SD 46.1 fl (35.1-43.9); White Blood Count 10.3 K/mm3 (4.4-11.0)
[2019-01-06 15:59] LABS: Scan Indicated on CBC? Y/N NO
[2019-01-06 16:22] LABS: BNP,B-Type NATRIURETIC PEPTIDE 101.1 pg/mL (0-100)
== END | disposition home or self-care (01) ==
PROVIDERS: Physician Assistant Medical; Family Provider Family Medicine; PCP Family Medicine; Referring Provider Internal Medicine Cardiovascular Disease; Visit Provider Internal Medicine Cardiovascular Disease
DX: I48.0 Paroxysmal atrial fibrillation (principal); I50.9 Heart failure, unspecified; R06.02 Shortness of breath
CPT/HCPCS: 36415; 83880; 85027

== ENCOUNTER → 2019-02-03 | Outpatient (CLI) | payer MEDICARE, SELFPAY ==
[2019-01-09 11:25] VITALS: BMI 41.9
--- NOTE | 2019-02-03 13:48 | ECHOCS_ITS ---
Reason For Study: Dyspnea/SOB Procedure This was a 2D Doppler, Color Flow transthoracic echocardiogram. The study was technically difficult. Contrast injection was performed. Exam performed in department. Left Ventricle Normal LV size. Mild concentric left ventricular hypertrophy. Left ventricular systolic function is normal. The estimated ejection fraction is 65 %. There is evidence of diastolic dysfunction. No regional wall motion abnormalities noted. Right Ventricle Normal RV size. Normal systolic function. Atria The left atrium is moderately enlarged. Normal right atrium. No doppler evidence for ASD. Mitral Valve There is mild mitral annular calcification. Extension of the mitral annular calcification onto the posterior leaflet of the mitral valve. Mild mitral valve prolapse, posterior leaflet. Trivial mitral valve insufficiency. Tricuspid Valve Normal tricuspid valve. Trivial tricuspid valve insufficiency. Unable to estimate RV systolic pressure/pulmonary artery pressure due to technically difficult study. Aortic Valve Trisinus/trileaflet aortic valve. Normal aortic valve. Trivial aortic valve insufficiency. Pulmonic Valve The pulmonic valve is not well visualized. Great Vessels Normal sized aortic root. Pericardium/Pleural No pericardial effusion. Medication 22 gauge I.V. with prn adaptor inserted into right arm. Diluted definity 3ml given slow IV push to enhance endocardial definition. MMode/2D Measurements & Calculations LVIDd: 4.9 cm IVSd: 1.5 cm Ao root diam: 3.1 cm LVIDs: 2.9 cm LVPWd: 1.4 cm LA dimension: 4.4 cm FS: 42.2 % LAV(MOD-bp): 79.0 ml LA A4 area: 25.6 cm2 RA A4 area: 18.5 cm2 LAV(MOD-bp) Indexed: 35.9 ml/m2 LAV(MOD-sp2): 70.0 ml LAV(MOD-sp4): 82.6 ml Time Measurements MV dec time: 0.28 sec Doppler Measurements & Calculations MV E max juan: 150.6 cm/sec Lat Peak E' Juan: 9.2 cm/sec Med Peak E' Juan: 5.3 cm/sec MV A max juan: 98.1 cm/sec E/E' lat: 16.4 E/E' med: 28.5 MV E/A: 1.5 MV V2 max: 142.5 cm/sec MV P1/2t max juan: 141.6 cm/sec Ao V2 max: 174.3 cm/sec MV max P.1 mmHg MV P1/2t: 147.5 msec Ao max P.2 mmHg MV V2 mean: 78.7 cm/sec MV dec slope: 281.1 cm/sec2 MV mean P.9 mmHg MV V2 VTI: 61.0 cm MVA(P1/2t): 1.5 cm2 AI max juan: 311.7 cm/sec LV V1 max: 109.3 cm/sec PA V2 max: 111.7 cm/sec AI max P.9 mmHg LV V1 max P.8 mmHg AI dec slope: 169.4 cm/sec2 AI P1/2t: 538.8 msec Interpretation Summary The study was technically difficult. Contrast injection was performed. The estimated ejection fraction is 65 %. Mild concentric left ventricular hypertrophy. The left atrium is moderately enlarged. There is mild mitral annular calcification. Extension of the mitral annular calcification onto the posterior leaflet of the mitral valve. Mild mitral valve prolapse, posterior leaflet Trivial mitral valve insufficiency. Trivial tricuspid valve insufficiency. Trivial aortic valve insufficiency. Unable to estimate RV systolic pressure/pulmonary artery pressure due to technically difficult study. There is evidence of diastolic dysfunction. Ordering Physician: Son Ellison Referring Physician: Son Ellison Performed By: Berto Ramirez [facility]
== END | disposition home or self-care (01) ==
PROVIDERS: Family Provider Family Medicine; PCP Family Medicine; Referring Provider Internal Medicine Cardiovascular Disease; Visit Provider Internal Medicine Cardiovascular Disease
DX: I51.81 Takotsubo syndrome (principal); I48.0 Paroxysmal atrial fibrillation
CPT/HCPCS: 93306; Q9957; A4216; C8929

== ENCOUNTER 2019-03-05 23:13 | Inpatient (IN) | payer MEDICARE, SELFPAY ==
[2019-01-09 11:25] VITALS: BMI 41.9
[2019-03-05 23:13] VITALS: BP 189/115; PULSE 140; RESP 33; TEMP 36.4; O2SAT 92; BMI 42.7
--- NOTE | 2019-03-05 23:21 | EKG12_ITS ---
Test Reason : SOB Blood Pressure : / mmHG Vent. Rate : 137 BPM Atrial Rate : 137 BPM P-R Int : 126 ms QRS Dur : 090 ms QT Int : 322 ms P-R-T Axes : 014 -36 057 degrees QTc Int : 486 ms Sinus tachycardia Left axis deviation Septal infarct , age undetermined Abnormal ECG Confirmed by ABIMAEL CURRY, CAROLE ([id number]), film or videotape editor ADAMS GOODEN ([id number]) on 03/09/2019 12:35:25 PM Referred By: KARELY Confirmed By:CAROLE VARGHESE MD
--- NOTE | 2019-03-05 23:21 | RAD_ITS ---
STUDY: X-RAY CHEST REASON FOR EXAM: Female, 63 years old. SOB dyspnea. TECHNIQUE: Portable chest. COMPARISON: 11/30/2018. FINDINGS: This study is significantly limited by respiratory motion artifact. Ill-defined opacities in the lung bases are consistent with blurring from respiratory motion. However, pneumonic infiltrate cannot be excluded in the right lung base. No pleural effusion. Normal size heart. Normal mediastinum and judith. Normal visualized pulmonary arteries. Normal visualized aortic arch and descending thoracic aorta. Normal visualized thoracic spine. Normal visualized ribs, clavicles, and shoulders. There is no demonstrated abnormality of the visualized soft tissue structures of the upper abdomen. RAD/Chest 1 View (Portable) IMPRESSION: Significantly limited due to respiratory motion artifact. Pneumonia versus motion blurring in the right lung base. Repeat study is recommended. Electronically Signed: Dawna Portillo MD at 23:54 EDT Tel , Service support ,
[2019-03-05] MEDS: Nitroglycerin SL (ED/IMG/CATH) 0.4 MG TABLET SUBLINGUAL (23:24)
[2019-03-05] MEDS: Furosemide 40 MG/4 ML Vial IV (23:24)
--- NOTE | 2019-03-05 23:24 | ED.DCSUM_ITS ---
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 She has had some swelling in her feet lately. She has a history of congestive heart failure, she sees cardiology locally and just had an echocardiogram a month ago. She denies eating a lot of salt or intaking a lot of fluids lately. She uses Lasix as needed but has not needed it lately. EMS attempted BiPAP as she was in respiratory distress but she refused it and was not able to tolerate. History is somewhat limited since the patient is extremely dyspneic. <Shreyas Monroy - Last Filed: 03/06/19 00:12> <Carlo Moffett - Last Filed: 03/06/19 01:05> Chief Complaint: Shortness of Breath - Past Medical History (1) Benign essential HTN Status: Chronic (2) Chronic pain syndrome Status: Chronic (3) Congestive heart failure Status: Chronic (4) Depression Status: Chronic (5) Diabetic gastroparesis Status: Chronic (6) Fibromyalgia Status: Chronic (7) GERD (gastroesophageal reflux disease) Status: Chronic (8) HLD (hyperlipidemia) Status: Chronic (9) Iron deficiency anemia Status: Chronic (10) Paroxysmal atrial fibrillation Status: Chronic (11) Seizure disorder Status: Chronic (12) Takotsubo cardiomyopathy Status: Chronic (13) Type 2 diabetes mellitus Status: Chronic <Shreyas Monroy - Last Filed: 03/06/19 00:12> Past Medical History Doctors: dr. Ellison Surgical History: appendectomy, cholecystectomy Smoking Status: Never smoker - Family History Paternal Family History: Family History (Last Reviewed 01/09/19 @ 11:32 by Carely Norwood) Mother Myocardial infarction Father Congestive heart failure Other Diabetes Heart disease Family History: Reports: Heart Disease, - - Bone cancer Maternal Family History: Family History (Last Reviewed 01/09/19 @ 11:32 by Carley Norwood) Mother Myocardial infarction Father Congestive heart failure Other Diabetes Heart disease Family History: Reports: COPD, Diabetes, Heart Disease, - - Smoker <Shreyas Monroy - Last Filed: 03/06/19 00:12> - Family History Paternal Family History: Family History (Last Reviewed 01/09/19 @ 11:32 by Carley Norwood) Mother Myocardial infarction Father Congestive heart failure Other Diabetes Heart disease Maternal Family History: Family History (Last Reviewed 01/09/19 @ 11:32 by Carley Norwood) Mother Myocardial infarction Father Congestive heart failure Other Diabetes Heart disease <Carlo Moffett - Last Filed: 03/06/19 01:05> - Allergies and Home Meds Allergies/Adverse Reactions: Allergies ciprofloxacin [From Cipro] Allergy (Verified 03/05/19 23:18) Shortness of breath ciprofloxacin HCl [From Cipro] Allergy (Verified 03/05/19 23:18) Shortness of breath cyclobenzaprine [From Flexeril] Allergy (Verified 03/05/19 23:18) Rash cyclobenzaprine HCl [From Flexeril] Allergy (Verified 03/05/19 23:18) Rash ketorolac tromethamine [From Toradol] Allergy (Verified 03/05/19 23:18) Chest tightness sulfamethoxazole [From Bactrim] Allergy (Verified 03/05/19 23:18) Itching trimethoprim [From Bactrim] Allergy (Verified 03/05/19 23:18) Itching metformin Adverse Reaction (Verified 03/05/19 23:18) Other headache valacyclovir HCl [From Valtrex] Adverse Reaction (Verified 03/05/19 23:18) Other Primary Care Physician: Devan Parks MD [Primary Care Provider] - Review of Systems ROS: Unable to Obtain - limited due to acuity General: Reports: Malaise. Denies: Chills, Fever Cardiovascular: Denies: Chest pain, Palpitations, Heart racing Respiratory: Reports: Dyspnea. Denies: Cough, Sputum Gastrointestinal: Denies: Abdominal pain, Nausea, Vomiting, Diarrhea Musculoskeletal: Reports: Swelling - both feet. Denies: Extremity Pain Skin: Denies: Rash, Abscess, Wounds Neurological: Denies: Headache, Weakness, Numbness <Shreyas Monroy - Last Filed: 03/06/19 00:12> Physical Exam Vital Signs/Narrative: Vital Signs Temp Pulse Resp BP Pulse Ox 07/18/19 23:13 97.5 F L 140 H 33 H 189/115 H 92 Inital Vital Signs reviewed: Yes General: Well nourished, Well developed, Obese, Acute Distress - respiratory; speaking in 1-2-word sentences Head: Normocephalic, Atraumatic Eyes: Perrl, EOMI ENT: Moist mucous membranes, No rhinorrhea Neck: Supple, Nontender Cardiovascular: Regular rate, Regular rhythm, Tachycardia Respiratory: Chest nontender, Rales - and coarse throughout all lung davalos; equal bilaterally; trachea midline Abdomen: Soft, Nontender, Nondistended, Normal bowel sounds Back: Nontender, Normal Inspection Extremities: Nontender, Edema - trace distal BLE, symmetric. Negative for: Calf Tenderness Skin: Normal color, No rash, No Trauma Neurological: Alert, Oriented x3, Cranial nerves II-XII grossly intact, Normal Strength, Normal Sensation Psychological: - - anxious <Shreyas Monroy - Last Filed: 03/06/19 00:12> Vital Signs/Narrative: Vital Signs Temp Pulse Resp BP Pulse Ox 03/06/19 00:51 122/83 H 03/06/19 00:50 98.0 F 114 H 20 H 122/68 H 100 03/06/19 00:25 115 H 20 H 03/05/19 23:28 133 H 29 H 03/05/19 23:13 97.5 F L 140 H 33 H 189/115 H 92 <Carlo Moffett - Last Filed: 03/06/19 01:05> Diagnostic/Tx/Re-eval Chest X-Ray - ED: 1 View, Read by ED Physician, Cardiomegaly, CHF - Rhythm Strip Rhythm Strip: Sinus Tach Rate: 135 Ectopy: None - EKG Initial EKG Interpretation: No Acute Injury Pattern, Sinus Tachycardia, Non-Specific ST Changes - ant-laterally; LAD Prior: Unchanged - left axis Treatment - Dyspnea: Oxygen - NRB, Albuterol, NTG SL, - - Lasix - Medical Decision Making Patient was seen just prior to shift change by myself and turned over to the oncoming emergency physician shortly after my initial evaluation. I discussed initially with the patient at the time of that evaluation that I thought she should be intubated. She understood and prefer to try some medications first, as she is refusing to do BiPAP, saying that she cannot tolerate it. That certainly would be my first choice of treatment here if she would not refuse it. As I discussed with her sister who is her medical power of reference investigator, I would not delay in intubating her if she does not get better quickly with medications, as it may be more risky for her. I suspect she has flash pulmonary edema, unknown if it is cardiogenic or noncardiogenic at this point. History does not help delineate the etiology at this time. Respiratory is providing an albuterol treatment, nursing is giving IV Lasix, nitroglycerin, oxygen via nonrebreather, and radiology is in the room to provide a portable chest x-ray. Will reevaluate shortly. After the above treatment, she is actually breathing much better and her heart rate is down to 113, sinus tachycardia. Portable chest x-ray I thought showed more congestion, radiology is concerned it may show pneumonia in the right base. In reevaluating the patient I asked her if she had been coughing and now she states yes she has been without significant production. Labs are coming back and she has a significant leukocytosis, and a minimal BNP at 200, indicating that this may be respiratory failure from pneumonia. I am adding a lactate, blood cultures, empiric antibiotics, and a repeat chest x-ray according to radiology's recommendation, I think she will be stable to go to radiology for a 2 view now. I think it would be reasonable to hold off on intubation. Patient is a full code. <Shreyas Monroy - Last Filed: 03/06/19 00:12> - Medical Decision Making Patient was signed out to me to follow-up on repeat x-ray laboratory studies lactic acid. Lactic acid did return at 5.5. Given leukocytosis lactic acidosis and chest x-ray findings more consistent with pneumonia I believe the patient is in septic shock. She has already received IV antibiotics. I have added on IV fluids. Radiology read for the two-view x-ray is pending. Patient will be discussed with the hospitalist and admitted. At the time my reevaluation patient is maintaining a pulse ox of 99 to 100% on nonrebreather and heart rate is around 110. She remains tachypneic. Patient will likely require ICU care. <Carlo Moffett - Last Filed: 03/06/19 01:05> Disposition: Admit to ICU Critical care time (excluding procedures): 30-74 minutes <Carlo Moffett - Last Filed: 03/06/19 01:05> ED Disposition <Shreyas Monroy - Last Filed: 03/06/19 00:12> <Carlo Moffett - Last Filed: 03/06/19 01:05> - Plan for ED Patient: Disposition: Acute Care Hospital [facility] Diagnosis: Acute respiratory failure with hypoxia, CAP (community acquired pneumonia), Septic shock Referrals: Devan Parks MD [Primary Care Provider] -
[2019-03-05 23:28] VITALS: PULSE 133; RESP 29
[2019-03-05 23:31] LABS: Basophil# 0.15 X10^3/uL; Basophil% 0.8 % (0-1); Eosinophil# 0.51 X10^3/uL; Eosinophils% 2.7 % (0-5); Hematocrit 41.5 % (37-47); Hemoglobin 13.4 g/dL (12.0-15.0); Lymphocyte % 35.5 % (19-41); Mean Corp Hgb Conc 32.3 g/dL (32-36); Mean Corpuscular Hgb 27.4 pg (27.0-32.0); Mean Corpuscular Volume 84.9 fL (81-99); Mean Platelet Vol. 9.7 fl (6.2-12.0); Monocyte# 1.51 X10^3/uL; NRBC Flagged by Analyzer 0 % (0-5); Neutrophil # 9.89 X10^3/uL (2.7-7.7); Neutrophil % 52.3 % (47-70); POSITIVE DIFFERENTIAL YES; POSITIVE MORPHOLOGY YES; Platelet Count 536 K/mm3 (150-450); RBC Distribution Width SD 43.1 fl (35.1-43.9); Red Blood Count 4.89 M/mm3 (4.2-5.4); White Blood Count 18.9 K/mm3 (4.4-11.0)
[2019-03-05 23:39] LABS: Differential Indicated SCAN CRITERIA MET
[2019-03-05] MEDS: Albuterol 2.5 MG/3 ML VIAL.NEB. INHALATION (23:50)
[2019-03-05 23:51] LABS: Allen Test POS; Base Excess -6 mmol/L (-2 to +2); Bicarbonate 21.6 mmol/L (22-26); Blood Gas Specimen Type ART; O2 Delivery Device NRB Mask; PO2 94 mmHG (75-100); SITE R Radial; SO2 95 % (95-99); Time Given 2340; Total Carbon Dioxide 23 mmol/L; pCO2 51.8 mmHg (35-45); pH 7.23 (7.35-7.45)
[2019-03-06] VITALS (27 sets, daily range): BP systolic 80–123; BP diastolic 43–89; PULSE 60–120; RESP 13–26; TEMP 36–36.9; O2SAT 92–100; BMI 44.5
[2019-03-06 00:08] LABS: Anion Gap 9 (5-15); BNP,B-Type NATRIURETIC PEPTIDE 214.9 pg/mL (0-100); BUN 12 mg/dL (7-18); BUN/Creat Ratio 8.2 RATIO (10-20); Calcium,Total 8.9 mg/dL (8.5-10.1); Chloride 104 mmol/L (98-107); Creatinine, Serum 1.46 mg/dL (0.55-1.02); EST Glomerular Filtration Rate 38 mL/min (>60); Est Glom Filt Rate - Afr Amer 46 mL/min (>60); Estimated Creatinine Clearance 39.27 ml/min; Glucose 427 mg/dL (74-106); Potassium 4.4 mmol/L (3.5-5.1); Sodium Level 135 mmol/L (136-145)
--- NOTE | 2019-03-06 00:08 | RAD_ITS ---
STUDY: X-RAY CHEST REASON FOR EXAM: Female, 63 years old. Shortness of breath. TECHNIQUE: Single AP portable view of the chest. The images are under penetrated. COMPARISON: March 05, 2019. FINDINGS: Cardiac monitoring leads are present. The lungs are expanded. There appear to be bilateral basilar heterogeneous airspace consolidations. Broncho-vascular markings are prominent in both lungs. There is no demonstrated pleural abnormality. There is mild cardiac enlargement. Normal mediastinum and judith. There is prominence of the pulmonary hilar arteries with peripheral pulmonary vascular congestion. Normal visualized aortic arch and descending thoracic aorta. Normal visualized thoracic spine. Normal visualized ribs, clavicles, and shoulders. There is no demonstrated abnormality of the visualized soft tissue structures of the upper abdomen. RAD/Chest PA and Lateral IMPRESSION: Unchanged appearance of chest with cardiomegaly, pulmonary congestion and bilateral airspace consolidations. Electronically Signed: Eri Floyd MD at 2:01 EDT , Service support ,
[2019-03-06 00:10] LABS: Differential Comment SCANNED
[2019-03-06] MEDS: Ipratropium/Albuterol Sulfate 3 ML AMPUL.NEB INHALATION (00:27)
[2019-03-06] MEDS: Ceftriaxone 1 GM/50 ML BAG IV ×2 (00:34→21:34)
--- NOTE | 2019-03-06 00:41 | ED.RN ---
lab called with critical lab results. lactic acid 5.5. Dr. Moffett made aware. no new orders at this time
[2019-03-06 00:42] LABS: Lactic Acid 5.5 mmol/L (0.4-2.0)
--- NOTE | 2019-03-06 01:25 | ED.RN ---
iv fluids stopped per dr kelley,pt c/o sob.
--- NOTE | 2019-03-06 01:26 | ED.RN ---
pt recieved 25cc of fluid.
--- NOTE | 2019-03-06 01:47 | HP.PCM_ITS ---
Problem List (1) Flash pulmonary edema Status: Acute (2) CAP (community acquired pneumonia) Status: Acute (3) Acute respiratory failure Status: Acute History of Present Illness Date of Admission: 03/06/19 Chief Complaint: shortness of breath The patient is a 63 year old F with a significant history of hypertension; morbid obesity; congestive heart failure; restless leg syndrome; type 2 diabetes; Takotsubo cardiomyopathy; rheumatoid arthritis; chronic nausea; and gout who presented to emergency department with rapid onset of shortness of breath that started few hours before presentation. Symptoms started while she was at home watching TV. Per family the patient looked pale; was short of breath; was diaphoretic; was having noisy breathing. However per family when patient came to emergency department she looked red. Reportedly paramedics wanted to put patient on CPAP but she could not tolerate because of anxiety. On room air her oxygen saturation was 64%. Her heart rate was 140. At the ED, BiPAP was discussed with patient however the patient declined. She was then placed on non rebreather mask. Initially emergency department doctor started patient on breathing treatment and Lasix. Initial chest x-ray was concerning for pneumonia. Lactic acid was elevated at 5.5. Consideration was made for sepsis secondary to pneumonia. Normal saline bolus was initiated. However reportedly when patient had received about 100 mL's of normal saline or thereabouts she became severely short of breath for which normal saline infusion was discontinued. Initial chest x-ray was an AP view. Because of probably motion artifacts, a repeat chest x-ray of PA and lateral was obtained to ascertain whether the patient was having acute heart failure or pneumonia. The second x-ray was interpreted as cardiomegaly; probably congestion and bilateral airspace consolidation. Because of the severity of her symptoms patient was admitted to the intensive care unit. Past Medical History Past Medical History (Chronic Problems): Chronic Problems (Last Reviewed 03/06/19 @ 06:45 by Jacques Santos MD) Fibromyalgia (Chronic) Congestive heart failure (Chronic) Type 2 diabetes mellitus (Chronic) 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) Diabetic gastroparesis (Chronic) Weakness of both lower extremities (Chronic) GERD (gastroesophageal reflux disease) (Chronic) Seizure disorder (Chronic) Paroxysmal atrial fibrillation (Chronic) Chronic pain syndrome (Chronic) Takotsubo cardiomyopathy (Chronic) Iron deficiency anemia (Chronic) Depression (Chronic) Morbid obesity with BMI of 40.0-44.9, adult (Chronic) HLD (hyperlipidemia) (Chronic) Benign essential HTN (Chronic) Medical History: Medical History (Last Reviewed 03/06/19 @ 06:45 by Jacques Santos MD) Fibromyalgia (Chronic) M79.7 Congestive heart failure (Chronic) I50.9 Type 2 diabetes mellitus (Chronic) E11.9 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) I25.2 GERD (gastroesophageal reflux disease) (Chronic) K21.9 Seizure disorder (Chronic) G40.909 Paroxysmal atrial fibrillation (Chronic) I48.0 Chronic pain syndrome (Chronic) G89.4 Takotsubo cardiomyopathy (Chronic) I51.81 Iron deficiency anemia (Chronic) D50.9 Depression (Chronic) F32.9 Morbid obesity with BMI of 40.0-44.9, adult (Chronic) E66.01, Z68.41 HLD (hyperlipidemia) (Chronic) E78.5 Benign essential HTN (Chronic) I10 Diverticulitis K57.92 Diabetic gastroparesis E11.43, K31.84 Fibromyalgia M79.7 QIAN (obstructive sleep apnea) G47.33 Restless leg syndrome G25.81 History of CVA (cerebrovascular accident) (Inactive) Z86.73 Allergies ciprofloxacin [From Cipro] Allergy (Verified 03/05/19 23:18) Shortness of breath ciprofloxacin HCl [From Cipro] Allergy (Verified 03/05/19 23:18) Shortness of breath cyclobenzaprine [From Flexeril] Allergy (Verified 03/05/19 23:18) Rash cyclobenzaprine HCl [From Flexeril] Allergy (Verified 03/05/19 23:18) Rash ketorolac tromethamine [From Toradol] Allergy (Verified 03/05/19 23:18) Chest tightness sulfamethoxazole [From Bactrim] Allergy (Verified 03/05/19 23:18) Itching trimethoprim [From Bactrim] Allergy (Verified 03/05/19 23:18) Itching metformin Adverse Reaction (Verified 03/05/19 23:18) Other headache valacyclovir HCl [From Valtrex] Adverse Reaction (Verified 03/05/19 23:18) Other Home Medications: Ambulatory Orders Medication Instructions Recorded Ropinirole HCl [Requip] 1 mg PO QHS 05/07/16 carvedilol 3.125 mg tablet 3.125 mg PO BID #180 tab 08/14/18 proMETHazine tablet [Phenergan 25 mg PO Q6H PRN PRN #10 tab 08/17/18 tablet] Allopurinol 300 mg PO DAILY 09/17/18 Haloperidol 2 mg PO TID PRN PRN 09/17/18 Levothyroxine Sodium 75 mcg PO DAILY 09/17/18 Simvastatin 40 mg PO QHS 09/17/18 Candesartan Cilexetil [Atacand] 16 mg PO DAILY 11/30/18 Hydrocodone Bitart/Apap 5-325 1 tab PO Q6H PRN PRN 11/30/18 [[place] 5MG-325MG] Hydroxychloroquine [Plaquenil] 200 mg PO BIDCM 11/30/18 Montelukast Sodium 10 mg PO DAILY 11/30/18 Omeprazole 40 mg PO DAILY 11/30/18 Pregabalin [Lyrica] 225 mg PO BID 11/30/18 sertraline 50 mg tablet 25 mg PO DAILY tab 01/09/19 Insulin Glargine,Hum.rec.anlog 29 unit SQ DAILY 03/05/19 [[place] Solostar] Insulin Regular, Human [Humulin R] 75 unit IJ BID 03/05/19 Surgical History: Surgical History (Last Reviewed 03/06/19 @ 05:11 by Jacques Santos MD) History of cholecystectomy Z90.49 History of knee surgery Z98.890 Surgical History: appendectomy, cholecystectomy Psychiatric History: Depression [employer] 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 Lives: With Family Smoking Status: Never smoker - *Family History Paternal Family History: Family History (Last Reviewed 03/06/19 @ 05:13 by Jacques Santos MD) Mother Myocardial infarction Father Congestive heart failure Other Diabetes Heart disease History Items: Heart Disease, - - Bone cancer Maternal Family History: Family History (Last Reviewed 03/06/19 @ 05:13 by Jacques Santos MD) Mother Myocardial infarction Father Congestive heart failure Other Diabetes Heart disease History Items: COPD, Diabetes, Heart Disease, - - Smoker Review of Systems Constitutional: Reports: Weight Change - Patient thinks she has gained some weight but she is unspecific.. Denies: Chills, Fever HEENT: Denies: Head Aches, Sinus Congestion, Sinus Drainage Cardiovascular: Reports: Edema - Reports some swelling in her bilateral legs for the last 2 days., Orthopnea - 2 pillow orthopnea; chronic. Denies: Chest Pain, Palpitations Respiratory: Reports: Shortness of breath at rest. Denies: Cough, Sputum production Gastrointestinal: Reports: Nausea - Chronic. Denies: Abdominal Pain, Vomiting Genitourinary: Denies: Dysuria Musculoskeletal: Denies: Joint Pain, Joint Tenderness Skin: Denies: Rash, Wounds Neurological: Denies: Numbness, Tingling, Focal weakness Psychiatric: Denies: Anxiety, Depression, Homicidal Ideations, Suicidal Ideations Hematologic/ Lymphatic: Denies: Easy Bruising, Easy Bleeding VTE Information - Inpt Only VTE Present on Admission: No VTE Mechan Device Prophylaxis: None VTE Pharm Prophylaxis ordered?: Yes Patient Problems: Active and Suspected Problems (Last Reviewed 03/06/19 @ 06:45 by Jacques Santos MD) Acute respiratory failure with hypoxia (Acute) CAP (community acquired pneumonia) (Acute) Septic shock (Acute) Flash pulmonary edema (Acute) Acute respiratory failure (Acute) - Physical Exam General: Alert, Oriented x3, Cooperative HEENT: Atraumatic, PERRLA, EOMI, Normocephalic Neck: Supple, No JVD, Negative Carotid Bruits Lungs: Rales - Right base, Using Accessory Muscles, Wheezes - Throughout Cardiovascular: No murmurs, Tachycardic Abdomen: Bowel Sounds Present, Soft, Non Tender Extremities: No edema, Capillary Refill Less than 3 Seconds Skin: No rashes, No breakdown Musculoskeletal: No Tenderness to Palpation of Joints or Extremities Neurological: Cranial nerves II-XII grossly intact Psych/Mental Status: Anxious Vital Signs Temp Pulse Resp BP Pulse Ox 98 F 114 H 21 H 111/78 99 03/06/19 01:25 03/06/19 01:25 03/06/19 01:25 03/06/19 01:25 03/06/19 01:25 Oxygen Flow Rate (L/min) 15 Oxygen Delivery Method Non-Rebreather Weight: 127.4 kg Body Mass Index (BMI) 42.7 Finger Stick Blood Glucose 279 Intake and Output for Last 24 Hours 03/04/19 03/05/19 03/06/19 23:59 23:59 23:59 Output Total 400 / 400 Balance -400 / -400 Laboratory Tests Past 24 Hrs 03/05/19 03/05/19 03/05/19 23:17 23:17 23:17 WBC 18.9 H RBC 4.89 Hgb 13.4 Hct 41.5 MCV 84.9 MCH 27.4 MCHC 32.3 RDW Std Deviation 43.1 RDW Coeff of Be 14.0 Plt Count 536 H MPV 9.7 Immature Gran % (Auto) 0.700 Neut % (Auto) 52.3 Lymph % (Auto) 35.5 Milam % (Auto) 8.0 Eos % (Auto) 2.7 Baso % (Auto) 0.8 Absolute Neuts (auto) Not Reportable Absolute Lymphs (auto) 6.70 H Absolute Nucleated RBC 0.00 Nucleated RBC % 0 Differential Comment SCANNED Diff Path Review May foll Specimen Type Sample Site pH Bicarbonate Actual POC Total CO2 Base Excess O2 Saturation ABG pCO2 ABG pO2 Reuben Test O2 Delivery Device Liter Flow Blood Gas Notified Whom Blood Gas Notified Time Sodium 135 L Potassium 4.4 Chloride 104 Carbon Dioxide 22.0 Anion Gap 9 BUN 12 Creatinine 1.46 H Estim Creat Clear Calc 39.27 Est GFR (MDRD) Af Amer 46 L Est GFR (MDRD) Non-Af 38 L BUN/Creatinine Ratio 8.2 L Glucose 427 H Lactic Acid Calcium 8.9 Troponin I < 0.015 B-Natriuretic Peptide 214.9 H 03/05/19 03/05/19 23:17 23:47 WBC RBC Hgb Hct MCV MCH MCHC RDW Std Deviation RDW Coeff of Be Plt Count MPV Immature Gran % (Auto) Neut % (Auto) Lymph % (Auto) Milam % (Auto) Eos % (Auto) Baso % (Auto) Absolute Neuts (auto) Absolute Lymphs (auto) Absolute Nucleated RBC Nucleated RBC % Differential Comment Diff Path Review Specimen Type ART Sample Site R Radial pH 7.23 L Bicarbonate Actual 21.6 L POC Total CO2 23 Base Excess -6 L O2 Saturation 95 ABG pCO2 51.8 H ABG pO2 94 Reuben Test POS O2 Delivery Device NRB Mask Liter Flow 15.0 Blood Gas Notified Whom ED MD Blood Gas Notified Time 2340 Sodium Potassium Chloride Carbon Dioxide Anion Gap BUN Creatinine Estim Creat Clear Calc Est GFR (MDRD) Af Amer Est GFR (MDRD) Non-Af BUN/Creatinine Ratio Glucose Lactic Acid 5.5 H* Calcium Troponin I B-Natriuretic Peptide Assessment/Plan All Active Problems (Last Reviewed 03/06/19 @ 06:45 by Jacques Santos MD) Acute respiratory failure with hypoxia (Acute) CAP (community acquired pneumonia) (Acute) Septic shock (Acute) Flash pulmonary edema (Acute) Acute respiratory failure (Acute) Acute kidney injury (Acute) Hyponatremia (Acute) Noninfective enterocolitis (Acute) The patient is a 63 year old F with a significant history of hypertension; congestive heart failure; restless leg syndrome; Takotsubo cardiomyopathy; type 2 diabetes rheumatoid arthritis; chronic nausea; and gout who presented to emergency department with rapid onset of shortness of breath that started few hours before presentation; and with radiographic evidence of pulmonary congestion and bilateral airspace consolidation consistent with flash pulmonary edema and probable community acquired pneumonia. Flash Pulmonary Edema secondary to heart failure Patient with wheezes throughout and crackles on her right base. Patient with a history of CHF(diastolic; last echo 02/03/2019) Received Lasix 40 mg IV urgency department. We will continue patient on Lasix 40 mg twice daily and supplemental potassium. 2 g cardiac diet Fluid restriction of 1500 mL's daily Of note echocardiogram on 02/03/2019 showed normal left ventricular size and left ventricular systolic function. Estimated ejection fraction was 65%. There was evidence of diastolic dysfunction. Weight on admission to the floor; and then daily Strict I&O's PA and lateral chest x-ray interpreted by radiologist as unchanged appearance of chest with cardiomegaly, prominent congestion and bilateral airspace consolidation. This was after first portable chest x-ray was done. Chest x-ray was independently reviewed. I agree with radiologist's interpretation. Emergency department labs reviewed showed lactic acidosis with lactic acid of 5.5. Lactic acidosis could be due to hypoxia; from CHF or pneumonia. Trend lactic acid. BNP was 214.9 which although mildly elevated is not uncommon obese patient with CHF. Monitor electrolytes and renal function Trend blood pressure Continue Coreg. Patient is on MARGARETH receptor jenny but because of SANGEETHA will hold off MARGARETH receptor jenny for now. Titrate diuretics and heart failure medications with blood pressure. Breathing treatments of albuterol and ipratropium not continued as her wheeze could be due to cardiac wheezes. Patient was noted to have received nitroglycerin. ABG was reviewed and showed a mixture of respiratory and metabolic acidosis. Admitted to ICU [employer] consult Community acquired pneumonia with probable septic shock. Lactic acid 5.5. But this could be due to heart failure as above or pneumonia. Received ceftriaxone and azithromycin at the emergency department. Continue Ceftriaxone and azithromycin. Blood cultures were obtained at the emergency department; follow Lactic acid: 5.5; trend RR ~20-33 Tachycardia:-Highest rate of 140 Oxygen saturation: 64% on room air. BiPAP was offered in the emergency department; patient declined. Patient was placed on nonrebreather mask. Continue nonrebreather mask Respiratory to check on patient after 30 minutes. Blood culture ?2 is pending Chest x-ray: As above Respiratory Gram stain and culture pending IV hydration: IV bolus was done in the emergency department but just after the IV infusion was started; patient was noted to be having increasing shortness of breath for which reason IV bolus was stopped. Legionella antigen screen and Strep antigen ordered. MRSA PCR of the nares. Acute hypoxemic and hypercapnic respiratory failure Patient noted to have oxygen saturation of 64% and requiring non-rebreather after she had declined BiPAP use. pco2 55 Patient with use of accessory muscles. Likely secondary to flash pulmonary edema and septic shock secondary community acquired pneumonia. Treatment as above. Diabetes mellitus On presentation her blood glucose was noted within goal. Her blood glucose was severely elevated. We will give one-time dose of lispro 10 units subcutaneous. At home patient take basal insulin. Basal insulin continued At home patient take short acting insulin 75 units twice daily that seem excessive. Reportedly she eats twice a day at home. Will start patient on short acting insulin 50 units 3 times daily prandial and correction scale insulin. Accu-Chek q. before meals to AC at bedtime. SANGEETHA On presentation her creatinine was 1.46 Review of old records shows baseline creatinine of about 1.10. BUN over creatinine is less than 20. Likely multifactorial from prerenal cause secondary to cardiorenal syndrome; and increasing renal from septic shock. Avoid nephrotoxic's. Hold candesartan for now. Lasix as above. Trend BMP. Hyponatremia Likely secondary to congestive heart failure Treatment of congestive heart failure as above Trend BMP Chronic nausea. Haloperidol and Phenergan continued Of note with azithromycin; and allopurinol patient is at risk of QT prolongation. Received Zofran in the emergency department. Because of increased risk of QT prolongation Zofran not reordered at this time. Hypertension Presentation her blood pressure was not within goal. However this could be due to anxiety. Blood pressure has trended down. Coreg continued as above Cardizem held because of SANGEETHA Cristobal ordered Labetalol as needed Trend Blood pressure and adjust blood pressure medication. DVT Prophylaxis Subcutaneous Lovenox. Code Visit Inpatient E&M: 95555 Init Hosp L3
[2019-03-06] MEDS: Ondansetron 4 MG/2 ML Vial IV (02:32)
[2019-03-06] MEDS: Insulin Lispro 100 UNIT/ML INSULN.PEN 10 UNIT SC (03:24)
[2019-03-06 03:31] LABS: Bedside Glucose 484 mg/dL (70-110)
[2019-03-06] MEDS: HYDROcodone Bitartrate/Apap 5/325 Tablet PO ×3 (03:39→17:51)
[2019-03-06] MEDS: 0.9% NaCl Peripheral Flush Adult/Peds IV ×3 (03:40→21:36)
[2019-03-06 04:17] LABS: Reflex Lactate? Y
[2019-03-06 04:24] LABS: Lactic Acid 2.1 mmol/L (0.4-2.0)
[2019-03-06] MEDS: Acetaminophen 325 MG Tablet 650 MG PO ×2 (04:34→21:57)
[2019-03-06 04:48] LABS: M R Staph aureus DNA By PCR Negative (Negative); Probe Check PASS; Specimen Processing Control PASS
[2019-03-06] MEDS: Haloperidol 5 MG Tablet 2.5 MG PO (05:04)
[2019-03-06] MEDS: Levothyroxine 75 MCG Tablet PO (05:09)
[2019-03-06 06:46] LABS: Absolute Lymphocyte Count 0.97 X10^3/uL (0.83-4.51); Absolute Neutrophil Count 12.1 X10^3/uL (2.0-7.7); Basophil# 0.07 X10^3/uL; Basophil% 0.5 % (0-1); Eosinophil# 0.07 X10^3/uL; Eosinophils% 0.5 % (0-5); Hematocrit 37.2 % (37-47); Hemoglobin 11.8 g/dL (12.0-15.0); Lymphocyte # 0.97 X10^3/ul (4.0); Lymphocyte % 6.6 % (19-41); Mean Corp Hgb Conc 31.7 g/dL (32-36); Mean Corpuscular Volume 85.1 fL (81-99); Mean Platelet Vol. 10.6 fl (6.2-12.0); Monocyte# 1.46 X10^3/uL; Monocyte% 9.9 % (0-10); NRBC Flagged by Analyzer 0 % (0-5); Neutrophil % 82.2 % (47-70); Platelet Count 329 K/mm3 (150-450); RBC Distribution Width CV 14.2 % (11.6-14.6); RBC Distribution Width SD 43.4 fl (35.1-43.9); Red Blood Count 4.37 M/mm3 (4.2-5.4); White Blood Count 14.7 K/mm3 (4.4-11.0)
--- NOTE | 2019-03-06 06:51 | CON.PCM_ITS ---
Reason for Consult Date of Consultation: 03/06/19 Reason for Consultation: Acute combined respiratory failure History of Present Illness: The patient is a 63 year old F, with past medical history listed below, who presented to [facility] on 03/05/2019 secondary to acute onset of shortness of breath. Patient states that she had felt at her baseline throughout the day yesterday. At approximately 11 PM, patient developed acute onset of shortness of breath. Patient did not have any prodromal fever, chills or productive cough. Patient had denied any preceding palpitations or chest discomfort. Patient had noted some mild swelling of her legs recently and does have a history of congestive heart failure. EMS had noted patient hypoxic initially on presentation, but patient was unable to tolerate BiPAP therapy and had refused it. In the ER, patient had an EKG showing sinus tachycardia at a rate of 135 bpm. Chest x-ray was relatively unremarkable. There was some concern for flash pulmonary edema, so patient was given IV Lasix, nitroglycerin and oxygen by [facility]. Patient responded well to therapy. Patient did have a significant leukocytosis and a BNP of 215, so there was some concern for pneumonia. Patient was given antibiotics and with elevated lactate, sepsis protocol was initiated. Fluids were discontinued abruptly given worsening shortness of breath. Patient was admitted to the intensive care unit for further evaluation and stabilization. Patient is not received any positive pressure while in the intensive care unit. Patient does feel subjectively improved from when she arrived. Patient is currently on 3 L nasal cannula oxygen with good saturations. Patient is denying any chest pain. Patient has had some lower blood pressures, but this was thought to be secondary to nitroglycerin, so no pressors have been initiated. Patient reports she had a similar type presentation in August of this year. Patient does follow with Dr. Ellison as an outpatient and carries a history of Takotsubu cardiomyopathy. Patient denies any significant smoking history, but does state that she had a pulmonary function test many years ago that she believes was normal. Patient also reports that she is currently on Plaquenil therapy, but this has not been adjusted recently. Patient denies any fever, chills, nausea or vomiting. Patient is not noted any pain of her swollen lower extremities. Patient denies any dysuria. Patient has not had any chest trauma or recent road trips. Review of systems otherwise negative x10 systems. Past Medical History Past Medical History (Chronic Problems): Chronic Problems (Last Reviewed 03/06/19 @ 06:45 by Jacques Santos MD) Fibromyalgia (Chronic) Congestive heart failure (Chronic) Type 2 diabetes mellitus (Chronic) 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) Diabetic gastroparesis (Chronic) Weakness of both lower extremities (Chronic) GERD (gastroesophageal reflux disease) (Chronic) Seizure disorder (Chronic) Paroxysmal atrial fibrillation (Chronic) Chronic pain syndrome (Chronic) Takotsubo cardiomyopathy (Chronic) Iron deficiency anemia (Chronic) Depression (Chronic) Morbid obesity with BMI of 40.0-44.9, adult (Chronic) HLD (hyperlipidemia) (Chronic) Benign essential HTN (Chronic) Medical History: Medical History (Last Reviewed 03/06/19 @ 06:45 by Jacques Santos MD) Fibromyalgia (Chronic) M79.7 Congestive heart failure (Chronic) I50.9 Type 2 diabetes mellitus (Chronic) E11.9 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) I25.2 GERD (gastroesophageal reflux disease) (Chronic) K21.9 Seizure disorder (Chronic) G40.909 Paroxysmal atrial fibrillation (Chronic) I48.0 Chronic pain syndrome (Chronic) G89.4 Takotsubo cardiomyopathy (Chronic) I51.81 Iron deficiency anemia (Chronic) D50.9 Depression (Chronic) F32.9 Morbid obesity with BMI of 40.0-44.9, adult (Chronic) E66.01, Z68.41 HLD (hyperlipidemia) (Chronic) E78.5 Benign essential HTN (Chronic) I10 Diverticulitis K57.92 Diabetic gastroparesis E11.43, K31.84 Fibromyalgia M79.7 QIAN (obstructive sleep apnea) G47.33 Restless leg syndrome G25.81 History of CVA (cerebrovascular accident) (Inactive) Z86.73 Allergies ciprofloxacin [From Cipro] Allergy (Verified 03/05/19 23:18) Shortness of breath ciprofloxacin HCl [From Cipro] Allergy (Verified 03/05/19 23:18) Shortness of breath cyclobenzaprine [From Flexeril] Allergy (Verified 03/05/19 23:18) Rash cyclobenzaprine HCl [From Flexeril] Allergy (Verified 03/05/19 23:18) Rash ketorolac tromethamine [From Toradol] Allergy (Verified 03/05/19 23:18) Chest tightness sulfamethoxazole [From Bactrim] Allergy (Verified 03/05/19 23:18) Itching trimethoprim [From Bactrim] Allergy (Verified 03/05/19 23:18) Itching metformin Adverse Reaction (Verified 03/05/19 23:18) Other headache valacyclovir HCl [From Valtrex] Adverse Reaction (Verified 03/05/19 23:18) Other Home Medications: Ambulatory Orders Medication Instructions Recorded Ropinirole HCl [Requip] 1 mg PO QHS 05/07/16 carvedilol 3.125 mg tablet 3.125 mg PO BID #180 tab 08/14/18 proMETHazine tablet [Phenergan 25 mg PO Q6H PRN PRN #10 tab 08/17/18 tablet] Allopurinol 300 mg PO DAILY 09/17/18 Haloperidol 2 mg PO TID PRN PRN 09/17/18 Levothyroxine Sodium 75 mcg PO DAILY 09/17/18 Simvastatin 40 mg PO QHS 09/17/18 Candesartan Cilexetil [Atacand] 16 mg PO DAILY 11/30/18 Hydrocodone Bitart/Apap 5-325 1 tab PO Q6H PRN PRN 11/30/18 [[place] 5MG-325MG] Hydroxychloroquine [Plaquenil] 200 mg PO BIDCM 11/30/18 Montelukast Sodium 10 mg PO DAILY 11/30/18 Omeprazole 40 mg PO DAILY 11/30/18 Pregabalin [Lyrica] 225 mg PO BID 11/30/18 sertraline 50 mg tablet 25 mg PO DAILY tab 01/09/19 Insulin Glargine,Hum.rec.anlog 29 unit SQ DAILY 03/05/19 [Touchloé Solostar] Insulin Regular, Human [Humulin R] 75 unit IJ BID 03/05/19 Surgical History: Surgical History (Last Reviewed 03/06/19 @ 05:11 by Jacques Santos MD) History of cholecystectomy Z90.49 History of knee surgery Z98.890 Surgical History: appendectomy, cholecystectomy Psychiatric History: Depression NUCLEAR ENGINEER History: No pertinent NUCLEAR ENGINEER history Lives: With Family Smoking Status: Never smoker - *Family History Paternal Family History: Family History (Last Reviewed 03/06/19 @ 05:13 by Jacques Santos MD) Mother Myocardial infarction Father Congestive heart failure Other Diabetes Heart disease History Items: Heart Disease, - - Bone cancer Maternal Family History: Family History (Last Reviewed 03/06/19 @ 05:13 by Jacques Santos MD) Mother Myocardial infarction Father Congestive heart failure Other Diabetes Heart disease History Items: COPD, Diabetes, Heart Disease, - - Smoker Review of Systems Comment: See HPI Patient Problems: Active and Suspected Problems (Last Reviewed 03/06/19 @ 06:45 by Jacques Santos MD) Acute respiratory failure with hypoxia (Acute) CAP (community acquired pneumonia) (Acute) Septic shock (Acute) Flash pulmonary edema (Acute) Acute respiratory failure (Acute) Objective: Chest x-ray was personally reviewed and does appear to show cephalization. Echocardiogram (02/03/2019): EF of 65% with diastolic dysfunction, no significant valvular abnormalities and unable to estimate pulmonary artery pressure secondary to difficult study. Left atrium is moderately enlarged. CT chest (07/20/2018): Relatively unremarkable except for some left basilar subsegmental atelectasis. No mediastinal adenopathy, emphysematous changes or masses noted. - Physical Exam General: Alert, Oriented x3, Cooperative, No apparent distress, Well developed, Well nourished, - - Morbidly obese. Speaking in full sentences. HEENT: Atraumatic, PERRLA, EOMI, Normocephalic, - - No scleral icterus or injection noted. Oral: Moist Mucosa, No Gingival or Mucosal Lesions/ Ulcerations Neck: Supple, No JVD, No Nodes, Trachea Midline Lungs: Clear to auscultation, Normal air movement, No rhonchi, No wheeze, No rales Cardiovascular: Regular rate, Regular Rhythm, Normal S1, Normal S2, No murmurs, No rub noted, No Gallop Abdomen: Bowel Sounds Present, Soft, Non Tender, Non-Distended, Obese Extremities: No clubbing, No cyanosis, Edema - Trace to 1+ lower extremity Skin: - - Dermal atrophy noted. No rashes appreciated. Musculoskeletal: No Tenderness to Palpation of Joints or Extremities Lymphatic: No Cervical, Supraclavicular, or Inguinal Adenopathy Neurological: Cranial nerves II-XII grossly intact, Neuro grossly intact, Motor Exam 5/5 strength throughout Psych/Mental Status: Alert and oriented to time, place, person, mood and affect Vital Signs Temp Pulse Resp BP Pulse Ox 36.0 C L 76 14 90/57 L 98 03/06/19 02:51 03/06/19 06:00 03/06/19 06:00 03/06/19 06:00 03/06/19 06:00 Oxygen Flow Rate (L/min) 3 Oxygen Delivery Method Nasal Cannula Weight: 125.1 kg Body Mass Index (BMI) 44.5 Finger Stick Blood Glucose 279 Intake and Output for Last 24 Hours 03/04/19 03/05/19 03/06/19 23:59 23:59 23:59 Intake Total 90 / 90 Output Total 400 / 400 Balance -310 / -310 Laboratory Tests Past 24 Hrs 03/05/19 03/05/19 03/05/19 23:17 23:17 23:17 WBC 18.9 H RBC 4.89 Hgb 13.4 Hct 41.5 MCV 84.9 MCH 27.4 MCHC 32.3 RDW Std Deviation 43.1 RDW Coeff of Be 14.0 Plt Count 536 H MPV 9.7 Immature Gran % (Auto) 0.700 Neut % (Auto) 52.3 Lymph % (Auto) 35.5 [place] % (Auto) 8.0 Eos % (Auto) 2.7 Baso % (Auto) 0.8 Absolute Neuts (auto) Not Reportable Absolute Lymphs (auto) 6.70 H Absolute Nucleated RBC 0.00 Nucleated RBC % 0 Differential Comment SCANNED Diff Path Review May foll D-Dimer Quant (PE/DVT) Specimen Type Sample Site pH Bicarbonate Actual POC Total CO2 Base Excess O2 Saturation ABG pCO2 ABG pO2 Reuben Test O2 Delivery Device Liter Flow Blood Gas Notified Whom Blood Gas Notified Time Sodium 135 L Potassium 4.4 Chloride 104 Carbon Dioxide 22.0 Anion Gap 9 BUN 12 Creatinine 1.46 H Estim Creat Clear Calc 39.27 Est GFR (MDRD) Af Amer 46 L Est GFR (MDRD) Non-Af 38 L BUN/Creatinine Ratio 8.2 L Glucose 427 H Lactic Acid Calcium 8.9 Phosphorus Magnesium Troponin I < 0.015 B-Natriuretic Peptide 214.9 H MRSA (PCR) 03/05/19 03/05/19 03/06/19 23:17 23:47 03:30 WBC RBC Hgb Hct MCV MCH MCHC RDW Std Deviation RDW Coeff of Be Plt Count MPV Immature Gran % (Auto) Neut % (Auto) Lymph % (Auto) [place] % (Auto) Eos % (Auto) Baso % (Auto) Absolute Neuts (auto) Absolute Lymphs (auto) Absolute Nucleated RBC Nucleated RBC % Differential Comment Diff Path Review D-Dimer Quant (PE/DVT) Specimen Type ART Sample Site R Radial pH 7.23 L Bicarbonate Actual 21.6 L POC Total CO2 23 Base Excess -6 L O2 Saturation 95 ABG pCO2 51.8 H ABG pO2 94 Reuben Test POS O2 Delivery Device NRB Mask Liter Flow 15.0 Blood Gas Notified Whom ED MD Blood Gas Notified Time 2340 Sodium Potassium Chloride Carbon Dioxide Anion Gap BUN Creatinine Estim Creat Clear Calc Est GFR (MDRD) Af Amer Est GFR (MDRD) Non-Af BUN/Creatinine Ratio Glucose Lactic Acid 5.5 H* Calcium Phosphorus Magnesium Troponin I B-Natriuretic Peptide MRSA (PCR) Negative 03/06/19 03/06/19 03/06/19 03:30 03:30 03:30 WBC 14.7 H RBC 4.37 Hgb 11.8 L Hct 37.2 MCV 85.1 MCH 27.0 MCHC 31.7 L RDW Std Deviation 43.4 RDW Coeff of Be 14.2 Plt Count 329 MPV 10.6 Immature Gran % (Auto) 0.300 Neut % (Auto) 82.2 H Lymph % (Auto) 6.6 L [place] % (Auto) 9.9 Eos % (Auto) 0.5 Baso % (Auto) 0.5 Absolute Neuts (auto) 12.1 H Absolute Lymphs (auto) 0.97 Absolute Nucleated RBC 0.00 Nucleated RBC % 0 Differential Comment Diff Path Review D-Dimer Quant (PE/DVT) Specimen Type Sample Site pH Bicarbonate Actual POC Total CO2 Base Excess O2 Saturation ABG pCO2 ABG pO2 Reuben Test O2 Delivery Device Liter Flow Blood Gas Notified Whom Blood Gas Notified Time Sodium Pending Potassium Pending Chloride Pending Carbon Dioxide Pending Anion Gap Pending BUN Pending Creatinine Pending Estim Creat Clear Calc Est GFR (MDRD) Af Amer Pending Est GFR (MDRD) Non-Af Pending BUN/Creatinine Ratio Pending Glucose Pending Lactic Acid 2.1 H Calcium Pending Phosphorus Pending Magnesium Pending Troponin I B-Natriuretic Peptide MRSA (PCR) 03/06/19 06:40 WBC RBC Hgb Hct MCV MCH MCHC RDW Std Deviation RDW Coeff of Be Plt Count MPV Immature Gran % (Auto) Neut % (Auto) Lymph % (Auto) [place] % (Auto) Eos % (Auto) Baso % (Auto) Absolute Neuts (auto) Absolute Lymphs (auto) Absolute Nucleated RBC Nucleated RBC % Differential Comment Diff Path Review D-Dimer Quant (PE/DVT) Pending Specimen Type Sample Site pH Bicarbonate Actual POC Total CO2 Base Excess O2 Saturation ABG pCO2 ABG pO2 Reuben Test O2 Delivery Device Liter Flow Blood Gas Notified Whom Blood Gas Notified Time Sodium Potassium Chloride Carbon Dioxide Anion Gap BUN Creatinine Estim Creat Clear Calc Est GFR (MDRD) Af Amer Est GFR (MDRD) Non-Af BUN/Creatinine Ratio Glucose Lactic Acid Calcium Phosphorus Magnesium Troponin I B-Natriuretic Peptide MRSA (PCR) POC Glucose 03/06/19 03:23 POC Glucose 484 H* Clinical Impression(s) from Imaging Studies Chest X-Ray 03/05/19 23:21 IMPRESSION: Significantly limited due to respiratory motion artifact. Pneumonia versus motion blurring in the right lung base. Repeat study is recommended. Electronically Signed: Dawna Portillo MD at 23:54 EDT Tel , Service support , Chest X-Ray 03/06/19 00:08 IMPRESSION: Unchanged appearance of chest with cardiomegaly, pulmonary congestion and bilateral airspace consolidations. Electronically Signed: Eri Floyd MD at 2:01 EDT , Service support , Assessment/Plan Active and Suspected Problems (Last Reviewed 03/06/19 @ 06:45 by Jacques Santos MD) Acute respiratory failure with hypoxia (Acute) CAP (community acquired pneumonia) (Acute) Septic shock (Acute) Flash pulmonary edema (Acute) Acute respiratory failure (Acute) RECOMMENDATIONS: 1. Continue diuresis 2. Obtain d-dimer, repeat CBC and BMP 3. Monitor with telemetry 4. Potential transfer to PCU later today 5. Discontinue antibiotics after 48 hours of culture negative IMPRESSIONS: 1. Acute combined respiratory failure Exact etiology is unclear at this time. ABG on presentation was suggestive of both hypoxic and hypercarbic respiratory failure, which would be unexpected in flash pulmonary edema unless patient had developed an element of respiratory muscle fatigue. Patient is very clear that she did not have any prodromal fever, chills, productive cough or chest pain to suggest pneumonia over the last 2 days. This is complicated by patient's concomitant Plaquenil use, so 48 hours of empiric antibiotics are not unreasonable. Patient is very specific that her symptoms started at 11:00 indicating a more acute process such as cardiac arrhythmia or pulmonary embolism. Will obtain a d-dimer. If normal, lower extremity Dopplers would likely not be indicated. Unclear if echocardiogram will provide sufficient insight. Initial troponin was negative. Patient is having significant hyperglycemia. 2. Possible acute on chronic diastolic congestive heart failure Patient did have left atrial enlargement on recent echocardiogram. Patient is in sinus rhythm at this time. Patient was not reporting any palpitations initially. Unclear if patient had a malignant rhythm at home. Would continue with telemetry. Electrolytes will be obtained to see if supplementation is indicated. Patient is on diuretic therapy and appears to be responding appropriately. Would defer to the hospitalist on whether cardiology should be involved. 3. Acute kidney injury Unclear etiology. Patient did have a slightly elevated creatinine of 1.46, which is up from a baseline of 1.1. Unclear if patient has an element of cardiorenal syndrome. Agree with holding ARB for now. Lasix has been ordered. 4. Diabetes mellitus with probable gastroparesis Patient's blood sugar is significantly elevated at this time. Patient will insulin at home is quite high, but this may be secondary to poor dietary habits. Continue to monitor with sliding scale insulin and treat appropriately. Will need to monitor patient's QT interval with antiemetics ordered. 5. Hypertension/morbid obesity/chronic immunosuppression Complicates care, management, recovery and prognosis. Code Visit Inpatient E&M: 85302 Init Hosp L3
[2019-03-06 06:55] LABS: Bedside Glucose 280 mg/dL (70-110)
[2019-03-06 07:10] LABS: D-Dimer Quantitative (DVT/PE) 1.86 FEU/ug/m (0.27-0.49)
[2019-03-06 07:13] LABS: Anion Gap 10 (5-15); BUN 15 mg/dL (7-18); BUN/Creat Ratio 10.2 RATIO (10-20); Calcium,Total 8.6 mg/dL (8.5-10.1); Chloride 103 mmol/L (98-107); Creatinine, Serum 1.47 mg/dL (0.55-1.02); EST Glomerular Filtration Rate 38 mL/min (>60); Est Glom Filt Rate - Afr Amer 46 mL/min (>60); Estimated Creatinine Clearance 36.19 ml/min; Glucose 480 mg/dL (74-106); Magnesium 1.8 mg/dL (1.6-2.6); Phosphorus 4.8 mg/dL (2.5-4.9); Potassium 5.3 mmol/L (3.5-5.1); Sodium Level 133 mmol/L (136-145)
--- NOTE | 2019-03-06 07:13 | VDLE_ITS ---
Reason For Study: Elevated D-dimer RIGHT LEFT GSV is normal. GSV is normal. CFV is compressible, spontaneous, phasic, CFV is compressible, spontaneous, phasic, competent and demonstrates normal competent, and demonstrates normal augmentation. augmentation. FV is compressible, spontaneous, phasic, FV is compressible, spontaneous, phasic, competent and demonstrates normal competent and demonstrates normal augmentation. augmentation. POP V is compressible, spontaneous, phasic, POP V is compressible, spontaneous, phasic, competent and demonstrates normal competent and demonstrates normal augmentation. augmentation. T/P Trunk is compressible. T/P Trunk is compressible. PTV is compressible. PTV is compressible. RT PerV is compressible. LT PerV is compressible. Procedure Exam performed portable in ICU/CCU. A preliminary report was called and/or faxed to ICU Nurse. Interpretation Summary Deep veins of the lower extremities are bilaterally patent and compressible segmentally. There is no evidence of deep vein thrombosis on either side. Valvular competence appears intact within the proximal deep venous systems bilaterally. The greater saphenous veins appear bilaterally patent and compressible segmentally. Ordering Physician: Vazquez Ortiz Referring Physician: Devan Parks Performed By: Romana Frazier RVT
[2019-03-06] MEDS: Furosemide 40 MG/4 ML Vial IV (08:54)
[2019-03-06] MEDS: Allopurinol 300 MG Tablet PO (08:56)
[2019-03-06] MEDS: Carvedilol 3.125 MG TABLET PO ×2 (08:56→21:35)
[2019-03-06] MEDS: Hydroxychloroquine 200 MG Tablet PO ×2 (08:56→17:22)
[2019-03-06] MEDS: Sertraline 50 MG Tablet 25 MG PO (08:57)
[2019-03-06] MEDS: Montelukast 10 MG Tablet PO (08:57)
[2019-03-06] MEDS: Enoxaparin 40 MG/0.4 ML Syringe SC (08:58)
[2019-03-06] MEDS: Pantoprazole Sodium 40 MG Tablet PO (08:58)
[2019-03-06] MEDS: Insulin Lispro 100 UNIT/ML INSULN.PEN 50 UNIT SC (08:59)
[2019-03-06] MEDS: Insulin Lispro 100 UNIT/ML INSULN.PEN SC (09:00)
--- NOTE | 2019-03-06 09:29 | NURSING ---
report called to pcu to transfer to room 127 per wheelchair with belongings
[2019-03-06] MEDS: Pregabalin 75 MG Capsule 225 MG PO ×2 (09:38→21:56)
[2019-03-06 09:43] LABS: Pathologist Review Reviewed
--- NOTE | 2019-03-06 09:47 | CASEMGMT ---
RN CM COPY WRITER CM to room to meet with patient for initial transition planning/care coordination assessment. ALMA KLINE introduced self and role at [facility]. Pt voices understanding and consents to assessment at this time. Pt resting in bed in no distress at this time. Pt is A/O at this time and answers all questions appropriately. Care providers, pharmacy, and demographics verified at this time. PCP: Charly Specialists: Terra--cardiology, Young--neurology, Sawyer--photo studio assistant Preferred Pharmacy: [facility] Insurance: [facility] Prescription Benefit: Yes Living Will/HPOA: Has LW. Just completed new HCPOA paperwork with SW. HCPOA is her sister, Linda. LNOK: Sister Living Arrangements: Lives alone in one-story home w/2 steps to enter. States is independent with ADL's and home mgmt tasks. Transportation: Pt states drives self and states no transportation concerns at this time. Sister, Linda, will drive her home @ d/c. DME: States has/uses the following DME: raised toilet seat, grab bars, glucometer. States glucometer is working properly and she has all needed supplies. Has/but does not use the following: Cane, walker, W/C Pt states no need for further DME at this time. Does not have Home O2. Is currently on RA. States has no preference of DME company if she would need anything @ D/C. HHC/SNF: Hx of [facility] and [facility] HHC. Per prior hospitalization note, plan was for CCN after [facility] HHC completed. Pt states she did not speak with anyone from [facility] after HHC done. She states is not interested in CCN at this time, stating, I don't need anybody. I'm doing fine. Pt wishes to return home and states has no concerns with going home at time of discharge. CM to follow for home oxygen needs and any further discharge planning/needs. Pt voices no further concerns/needs at this time. Advised pt to ask for CM if any further questions/concerns/needs arise. Voices understanding. Pt's wishes @ D/C. Return Home Plan: Home w/discharge plans in place. Claribel JOHN RN, CM
--- NOTE | 2019-03-06 10:22 | CASEMGMT ---
Pt does have a HCPOA in the medical record however, document is missing some pages. SW met with pt in room and informed of this and verified HCPOA who is listed as Cheikh Gonzalez. Pt stating that this is her who has and pt is interested in completing new AD. Pt stating she does have a living will but would also like to update these documents. SW assisted pt in completing new LW and HCPOA which names her sister Linda Mike. Originals given to pt and copies placed on chart. AZAM Velasquez
[2019-03-06 12:30] LABS: Bedside Glucose 76 mg/dL (70-110)
[2019-03-06 12:30] LABS: Bedside Glucose 68 mg/dL (70-110)
[2019-03-06 17:20] LABS: Bedside Glucose 81 mg/dL (70-110)
[2019-03-06] MEDS: Furosemide 20 MG/2 ML VIAL IV (17:25)
--- NOTE | 2019-03-06 18:46 | PCM.HOSP.N ---
Hospitalist Note Patient was seen and examined today, she was moved out of the ICU after her respiratory failure stabilized, presently patient is on room air at this time on PCU. Patient denies any chest pain or shortness of breath at the present time. Auscultation of the patient's lungs reveals some inspiratory rales at the bases bilaterally, otherwise lungs are clear. I will continue to monitor the patient on PCU, I have decided to reduce the patient's Lasix, I discussed her care with pulmonary medicine-pulmonary medicine advises leaving the patient on antibiotics for the present time because she is on medication for rheumatoid which is an immunosuppressant.
[2019-03-06] MEDS: 0.9% NaCl IVPB Med Flush (250 mL) 15 ML IV (21:34)
[2019-03-06] MEDS: Nystatin Powder 15gm Bottle 1 APPLIC TOPICAL (21:35)
[2019-03-06] MEDS: Atorvastatin Calcium 20 MG Tablet PO (21:35)
[2019-03-06] MEDS: Pramipexole Di-HCl 0.5 MG Tablet PO (21:36)
[2019-03-06 22:21] LABS: Bedside Glucose 141 mg/dL (70-110)
--- NOTE | 2019-03-06 23:45 | NURSING ---
Pt. having nausea and emesis at this time. Zithromax running IV. Pt. thinks antibiotic is causing nausea. Pt. denies CP. Dr. Santos on PCU at this time and notified of pt. nausea and wanting Haldol which was discontinued. Also notified Dr. Santos that patient's telemetry strip tonight is showing T wave inversion. EKG ordered.
--- NOTE | 2019-03-06 23:46 | EKG12_ITS ---
Test Reason : T-WAVE INVERT Blood Pressure : / mmHG Vent. Rate : 088 BPM Atrial Rate : 088 BPM P-R Int : 164 ms QRS Dur : 090 ms QT Int : 492 ms P-R-T Axes : 037 -33 210 degrees QTc Int : 595 ms Normal sinus rhythm Left axis deviation T wave abnormality, consider inferior ischemia T wave abnormality, consider anterolateral ischemia Prolonged QT Abnormal ECG When compared with ECG of 05-MAR-2019 23:19, MANUAL COMPARISON REQUIRED, DATA IS UNCONFIRMED Confirmed by ABIMAEL CURRY, CAROLE ([id number]), editor sound ADAMS GOODEN ([id number]) on 03/10/2019 1:59:30 PM Referred By: DR MARTIN Confirmed By:CAROLE VARGHESE MD
[2019-03-07] VITALS (13 sets, daily range): BP systolic 85–209; BP diastolic 35–95; PULSE 74–99; RESP 16–23; TEMP 36.7–37.1; O2SAT 92–95
[2019-03-07] MEDS: 0.9% NaCl Peripheral Flush Adult/Peds IV ×3 (00:07→09:55)
[2019-03-07] MEDS: Metoclopramide 10 MG/2 ML Vial 5 MG IV ×2 (00:07→09:52)
[2019-03-07] MEDS: HYDROcodone Bitartrate/Apap 5/325 Tablet PO ×3 (00:11→23:52)
--- NOTE | 2019-03-07 00:30 | PN_ITS ---
Progress Note Patient with T-wave inversion on monitor. Twelve lead -EKG showed T-wave inversions to leads V2-V6. Patient ahs an allergy to ketorolac that gave her chest tightness patient with acute on chronic diastolic heart failure. Golf Course Laborer had suggested probably considering cardiology consult. Will consult cardiology. On Lipitor 20mg qhs which she had already received. Will give additional Lipitor 20mg x1 now; and change Lipitor to 40mg daily.
--- NOTE | 2019-03-07 00:38 | NURSING ---
EKG changes noted on EKG. Dr. Santos viewed EKG. Cardiology consult ordered and caradiac enzyme series ordered.
[2019-03-07] MEDS: Atorvastatin Calcium 20 MG Tablet PO (01:08)
--- NOTE | 2019-03-07 01:55 | NURSING ---
Pts primary rn aware of troponin result of 1.32 at this time.
[2019-03-07] MEDS: Levothyroxine 75 MCG Tablet PO (06:19)
[2019-03-07] MEDS: Insulin Lispro 100 UNIT/ML INSULN.PEN SC ×4 (06:30→21:33)
[2019-03-07 06:41] LABS: Bedside Glucose 176 mg/dL (70-110)
[2019-03-07 07:33] LABS: Absolute Lymphocyte Count 2.86 X10^3/uL (0.83-4.51); Absolute Neutrophil Count 6.2 X10^3/uL (2.0-7.7); Basophil# 0.08 X10^3/uL; Basophil% 0.8 % (0-1); Eosinophil# 0.31 X10^3/uL; Hematocrit 34.1 % (37-47); Hemoglobin 10.5 g/dL (12.0-15.0); Lymphocyte # 2.86 X10^3/ul (4.0); Lymphocyte % 27.4 % (19-41); Mean Corp Hgb Conc 30.8 g/dL (32-36); Mean Corpuscular Hgb 26.1 pg (27.0-32.0); Mean Corpuscular Volume 84.8 fL (81-99); Mean Platelet Vol. 10.1 fl (6.2-12.0); Monocyte# 0.93 X10^3/uL; Monocyte% 8.9 % (0-10); NRBC Flagged by Analyzer 0 % (0-5); Neutrophil # 6.23 X10^3/uL (2.7-7.7); Neutrophil % 59.6 % (47-70); Platelet Count 295 K/mm3 (150-450); RBC Distribution Width CV 14.4 % (11.6-14.6); RBC Distribution Width SD 44.4 fl (35.1-43.9); Red Blood Count 4.02 M/mm3 (4.2-5.4); White Blood Count 10.4 K/mm3 (4.4-11.0)
[2019-03-07 08:04] LABS: BUN 25 mg/dL (7-18); BUN/Creat Ratio 15.4 RATIO (10-20); Calcium,Total 8.7 mg/dL (8.5-10.1); Creatinine, Serum 1.62 mg/dL (0.55-1.02); EST Glomerular Filtration Rate 34 mL/min (>60); Est Glom Filt Rate - Afr Amer 41 mL/min (>60); Estimated Creatinine Clearance 32.84 ml/min; Glucose 168 mg/dL (74-106); Potassium 4.6 mmol/L (3.5-5.1); Sodium Level 136 mmol/L (136-145)
[2019-03-07 08:05] LABS: Anion Gap 4 (5-15); Chloride 105 mmol/L (98-107)
[2019-03-07] MEDS: Hydroxychloroquine 200 MG Tablet PO ×2 (08:14→17:03)
--- NOTE | 2019-03-07 08:34 | PCM.PN.INT ---
Subjective: Patient noted to have T wave inversions overnight. Patient has been weaned to room air and feels that she is back to her baseline. Patient denies any chest pain, abdominal pain, nausea or vomiting. No diaphoretic episodes noted during T wave inversion. Objective: Review of the medical record shows patient did have a heart catheterization in 2016 that did not require intervention. General: Alert, Oriented x3, Cooperative, No apparent distress, Well developed, Well nourished, - - Morbidly obese. Speaking in full sentences. HEENT: Atraumatic, PERRLA, EOMI, Normocephalic, - - No scleral icterus or injection noted. Oral: Moist Mucosa, No Gingival or Mucosal Lesions/ Ulcerations Neck: Supple, No JVD, No Nodes, Trachea Midline Lungs: Clear to auscultation, Normal air movement, No rhonchi, No wheeze, No rales, - - Symmetric expansion. No dullness to percussion. Cardiovascular: Regular rate, Regular Rhythm, Normal S1, Normal S2, No murmurs, No rub noted, No Gallop Abdomen: Bowel Sounds Present, Soft, Non Tender, Non-Distended, Obese Extremities: No clubbing, No cyanosis, No edema, Capillary Refill Less than 3 Seconds Skin: No rashes, No breakdown Musculoskeletal: No Tenderness to Palpation of Joints or Extremities Lymphatic: No Cervical, Supraclavicular, or Inguinal Adenopathy Neurological: Cranial nerves II-XII grossly intact, Neuro grossly intact, Motor Exam 5/5 strength throughout Psych/Mental Status: Alert and oriented to time, place, person, mood and affect Vital Signs Temp Pulse Resp BP Pulse Ox 36.9 C 82 20 H 120/59 L 94 03/07/19 04:20 03/07/19 06:40 03/07/19 04:20 03/07/19 04:20 03/07/19 04:20 Oxygen Flow Rate (L/min) 1 Oxygen Delivery Method Room Air Weight: 123 kg Body Mass Index (BMI) 44.5 Finger Stick Blood Glucose 279 Intake and Output for Last 24 Hours 03/05/19 03/06/19 03/07/19 23:59 23:59 23:59 Intake Total 1067 / 1067 100 / 100 Output Total 1675 / 1675 Balance -608 / -608 100 / 100 Labs (Last 48 Hours) 03/05/19 03/05/19 03/05/19 23:17 23:17 23:17 WBC 18.9 H RBC 4.89 Hgb 13.4 Hct 41.5 MCV 84.9 MCH 27.4 MCHC 32.3 RDW Std Deviation 43.1 RDW Coeff of Be 14.0 Plt Count 536 H MPV 9.7 Immature Gran % (Auto) 0.700 Neut % (Auto) 52.3 Lymph % (Auto) 35.5 [place] % (Auto) 8.0 Eos % (Auto) 2.7 Baso % (Auto) 0.8 Absolute Neuts (auto) Not Reportable Absolute Lymphs (auto) 6.70 H Absolute Nucleated RBC 0.00 Nucleated RBC % 0 Differential Comment SCANNED Diff Path Review Reviewed D-Dimer Quant (PE/DVT) Specimen Type Sample Site pH Bicarbonate Actual POC Total CO2 Base Excess O2 Saturation ABG pCO2 ABG pO2 Reuben Test O2 Delivery Device Liter Flow Blood Gas Notified Whom Blood Gas Notified Time Sodium 135 L Potassium 4.4 Chloride 104 Carbon Dioxide 22.0 Anion Gap 9 BUN 12 Creatinine 1.46 H Estim Creat Clear Calc 39.27 Est GFR (MDRD) Af Amer 46 L Est GFR (MDRD) Non-Af 38 L BUN/Creatinine Ratio 8.2 L Glucose 427 H Lactic Acid Calcium 8.9 Phosphorus Magnesium Troponin I < 0.015 B-Natriuretic Peptide 214.9 H MRSA (PCR) POC Glucose 03/05/19 03/05/19 03/06/19 23:17 23:47 03:23 WBC RBC Hgb Hct MCV MCH MCHC RDW Std Deviation RDW Coeff of Be Plt Count MPV Immature Gran % (Auto) Neut % (Auto) Lymph % (Auto) [place] % (Auto) Eos % (Auto) Baso % (Auto) Absolute Neuts (auto) Absolute Lymphs (auto) Absolute Nucleated RBC Nucleated RBC % Differential Comment Diff Path Review D-Dimer Quant (PE/DVT) Specimen Type ART Sample Site R Radial pH 7.23 L Bicarbonate Actual 21.6 L POC Total CO2 23 Base Excess -6 L O2 Saturation 95 ABG pCO2 51.8 H ABG pO2 94 Reuben Test POS O2 Delivery Device NRB Mask Liter Flow 15.0 Blood Gas Notified Whom ED MD Blood Gas Notified Time 2340 Sodium Potassium Chloride Carbon Dioxide Anion Gap BUN Creatinine Estim Creat Clear Calc Est GFR (MDRD) Af Amer Est GFR (MDRD) Non-Af BUN/Creatinine Ratio Glucose Lactic Acid 5.5 H* Calcium Phosphorus Magnesium Troponin I B-Natriuretic Peptide MRSA (PCR) POC Glucose 484 H* 03/06/19 03/06/19 03/06/19 03:30 03:30 03:30 WBC 14.7 H RBC 4.37 Hgb 11.8 L Hct 37.2 MCV 85.1 MCH 27.0 MCHC 31.7 L RDW Std Deviation 43.4 RDW Coeff of Be 14.2 Plt Count 329 MPV 10.6 Immature Gran % (Auto) 0.300 Neut % (Auto) 82.2 H Lymph % (Auto) 6.6 L [place] % (Auto) 9.9 Eos % (Auto) 0.5 Baso % (Auto) 0.5 Absolute Neuts (auto) 12.1 H Absolute Lymphs (auto) 0.97 Absolute Nucleated RBC 0.00 Nucleated RBC % 0 Differential Comment Diff Path Review D-Dimer Quant (PE/DVT) Specimen Type Sample Site pH Bicarbonate Actual POC Total CO2 Base Excess O2 Saturation ABG pCO2 ABG pO2 Reuben Test O2 Delivery Device Liter Flow Blood Gas Notified Whom Blood Gas Notified Time Sodium Potassium Chloride Carbon Dioxide Anion Gap BUN Creatinine Estim Creat Clear Calc Est GFR (MDRD) Af Amer Est GFR (MDRD) Non-Af BUN/Creatinine Ratio Glucose Lactic Acid 2.1 H Calcium Phosphorus Magnesium Troponin I B-Natriuretic Peptide MRSA (PCR) Negative POC Glucose 03/06/19 03/06/19 03/06/19 03:30 06:40 06:51 WBC RBC Hgb Hct MCV MCH MCHC RDW Std Deviation RDW Coeff of Be Plt Count MPV Immature Gran % (Auto) Neut % (Auto) Lymph % (Auto) [place] % (Auto) Eos % (Auto) Baso % (Auto) Absolute Neuts (auto) Absolute Lymphs (auto) Absolute Nucleated RBC Nucleated RBC % Differential Comment Diff Path Review D-Dimer Quant (PE/DVT) 1.86 H* Specimen Type Sample Site pH Bicarbonate Actual POC Total CO2 Base Excess O2 Saturation ABG pCO2 ABG pO2 Reuben Test O2 Delivery Device Liter Flow Blood Gas Notified Whom Blood Gas Notified Time Sodium 133 L Potassium 5.3 H Chloride 103 Carbon Dioxide 20.0 L Anion Gap 10 BUN 15 Creatinine 1.47 H Estim Creat Clear Calc 36.19 Est GFR (MDRD) Af Amer 46 L Est GFR (MDRD) Non-Af 38 L BUN/Creatinine Ratio 10.2 Glucose 480 H* Lactic Acid Calcium 8.6 Phosphorus 4.8 Magnesium 1.8 Troponin I B-Natriuretic Peptide MRSA (PCR) POC Glucose 280 H 03/06/19 03/06/19 03/06/19 11:47 12:23 16:43 WBC RBC Hgb Hct MCV MCH MCHC RDW Std Deviation RDW Coeff of Be Plt Count MPV Immature Gran % (Auto) Neut % (Auto) Lymph % (Auto) [place] % (Auto) Eos % (Auto) Baso % (Auto) Absolute Neuts (auto) Absolute Lymphs (auto) Absolute Nucleated RBC Nucleated RBC % Differential Comment Diff Path Review D-Dimer Quant (PE/DVT) Specimen Type Sample Site pH Bicarbonate Actual POC Total CO2 Base Excess O2 Saturation ABG pCO2 ABG pO2 Reuben Test O2 Delivery Device Liter Flow Blood Gas Notified Whom Blood Gas Notified Time Sodium Potassium Chloride Carbon Dioxide Anion Gap BUN Creatinine Estim Creat Clear Calc Est GFR (MDRD) Af Amer Est GFR (MDRD) Non-Af BUN/Creatinine Ratio Glucose Lactic Acid Calcium Phosphorus Magnesium Troponin I B-Natriuretic Peptide MRSA (PCR) POC Glucose 68 L 76 81 03/06/19 03/07/19 03/07/19 21:46 00:57 03:41 WBC RBC Hgb Hct MCV MCH MCHC RDW Std Deviation RDW Coeff of Be Plt Count MPV Immature Gran % (Auto) Neut % (Auto) Lymph % (Auto) [place] % (Auto) Eos % (Auto) Baso % (Auto) Absolute Neuts (auto) Absolute Lymphs (auto) Absolute Nucleated RBC Nucleated RBC % Differential Comment Diff Path Review D-Dimer Quant (PE/DVT) Specimen Type Sample Site pH Bicarbonate Actual POC Total CO2 Base Excess O2 Saturation ABG pCO2 ABG pO2 Reuben Test O2 Delivery Device Liter Flow Blood Gas Notified Whom Blood Gas Notified Time Sodium Potassium Chloride Carbon Dioxide Anion Gap BUN Creatinine Estim Creat Clear Calc Est GFR (MDRD) Af Amer Est GFR (MDRD) Non-Af BUN/Creatinine Ratio Glucose Lactic Acid Calcium Phosphorus Magnesium Troponin I 1.320 H* 1.030 H* B-Natriuretic Peptide MRSA (PCR) POC Glucose 141 H 03/07/19 03/07/19 03/07/19 06:27 06:43 06:43 WBC 10.4 RBC 4.02 L Hgb 10.5 L Hct 34.1 L MCV 84.8 MCH 26.1 L MCHC 30.8 L RDW Std Deviation 44.4 H RDW Coeff of Be 14.4 Plt Count 295 MPV 10.1 Immature Gran % (Auto) 0.300 Neut % (Auto) 59.6 Lymph % (Auto) 27.4 [place] % (Auto) 8.9 Eos % (Auto) 3.0 Baso % (Auto) 0.8 Absolute Neuts (auto) 6.2 Absolute Lymphs (auto) 2.86 Absolute Nucleated RBC 0.00 Nucleated RBC % 0 Differential Comment Diff Path Review D-Dimer Quant (PE/DVT) Specimen Type Sample Site pH Bicarbonate Actual POC Total CO2 Base Excess O2 Saturation ABG pCO2 ABG pO2 Reuben Test O2 Delivery Device Liter Flow Blood Gas Notified Whom Blood Gas Notified Time Sodium 136 Potassium 4.6 Chloride 105 Carbon Dioxide 27.0 Anion Gap 4 L BUN 25 H Creatinine 1.62 H Estim Creat Clear Calc 32.84 Est GFR (MDRD) Af Amer 41 L Est GFR (MDRD) Non-Af 34 L BUN/Creatinine Ratio 15.4 Glucose 168 H Lactic Acid Calcium 8.7 Phosphorus Magnesium Troponin I 1.060 H* B-Natriuretic Peptide MRSA (PCR) POC Glucose 176 H 03/07/19 06:43 WBC RBC Hgb Hct MCV MCH MCHC RDW Std Deviation RDW Coeff of Be Plt Count MPV Immature Gran % (Auto) Neut % (Auto) Lymph % (Auto) [place] % (Auto) Eos % (Auto) Baso % (Auto) Absolute Neuts (auto) Absolute Lymphs (auto) Absolute Nucleated RBC Nucleated RBC % Differential Comment Diff Path Review D-Dimer Quant (PE/DVT) Specimen Type Sample Site pH Bicarbonate Actual POC Total CO2 Base Excess O2 Saturation ABG pCO2 ABG pO2 Reuben Test O2 Delivery Device Liter Flow Blood Gas Notified Whom Blood Gas Notified Time Sodium Potassium Chloride Carbon Dioxide Anion Gap BUN Creatinine Estim Creat Clear Calc Est GFR (MDRD) Af Amer Est GFR (MDRD) Non-Af BUN/Creatinine Ratio Glucose Lactic Acid Calcium Phosphorus Magnesium Troponin I Cancelled B-Natriuretic Peptide MRSA (PCR) POC Glucose Microbiology 03/06/19 15:20 Urine Catheter - Catheter Legionella Antigen - Final 03/06/19 15:20 Urine Catheter - Catheter Streptococcus pneumoniae Antigen (M - Final Medical Necessity - Tobacco Use Smoking Status: Never smoker Assessment/Plan All Active Problems (Last Reviewed 03/06/19 @ 06:45 by Jacques Santos MD) Acute respiratory failure with hypoxia (Acute) CAP (community acquired pneumonia) (Acute) Septic shock (Acute) Flash pulmonary edema (Acute) Acute respiratory failure (Acute) Acute kidney injury (Acute) Hyponatremia (Acute) Noninfective enterocolitis (Acute) RECOMMENDATIONS: 1. Likely okay to discontinue diuretic therapy 2. Await cardiology recommendations 3. Monitor with telemetry 4. Hemodynamically stable on room air. Will sign off from a critical care perspective IMPRESSIONS: 1. Acute combined respiratory failure Exact etiology is unclear at this time. Patient has been weaned rapidly to room air. This would indicate a probable pulmonary congestion/edema leading to acute hypoxic respiratory failure. Antibiotics can be discontinued from my perspective as pneumonia would not improve this rapidly. Patient has had T wave inversions noted on telemetry and confirmed by EKG. Cardiology has been consulted, so will await their opinion. However, patient currently is hemodynamically stable on room air, so will sign off from a critical care/pulmonary perspective. Please call with any further issues or questions. 2. Possible acute on chronic diastolic congestive heart failure Patient did have left atrial enlargement on recent echocardiogram. Patient is in sinus rhythm at this time. Patient was not reporting any palpitations initially. Unclear if patient had a malignant rhythm at home. Patient did have some T wave inversions noted on telemetry. Likely okay to discontinue diuretic therapy given patient is currently on room air. 3. Acute kidney injury Unclear etiology. Increased creatinine today likely secondary to diuretic therapy. This can be discontinued from my perspective. No indication for renal replacement therapy at this time. 4. Diabetes mellitus with probable gastroparesis Patient's blood sugar is significantly elevated at this time. Patient will insulin at home is quite high, but this may be secondary to poor dietary habits. Continue to monitor with sliding scale insulin and treat appropriately. Will need to monitor patient's QT interval with antiemetics ordered. 5. Hypertension/morbid obesity/chronic immunosuppression Complicates care, management, recovery and prognosis. Code Visit Inpatient E&M: 72633 Subs Hosp L2
[2019-03-07] MEDS: Furosemide 20 MG/2 ML VIAL IV (09:52)
[2019-03-07] MEDS: Pregabalin 75 MG Capsule 225 MG PO ×2 (09:52→21:34)
[2019-03-07] MEDS: Montelukast 10 MG Tablet PO (09:53)
[2019-03-07] MEDS: Carvedilol 3.125 MG TABLET PO ×2 (09:53→21:33)
[2019-03-07] MEDS: Pantoprazole Sodium 40 MG Tablet PO (09:53)
[2019-03-07] MEDS: Sertraline 50 MG Tablet 25 MG PO (09:53)
[2019-03-07] MEDS: Allopurinol 300 MG Tablet PO (09:53)
[2019-03-07] MEDS: Enoxaparin 40 MG/0.4 ML Syringe SC (09:54)
[2019-03-07] MEDS: Nystatin Powder 15gm Bottle 1 APPLIC TOPICAL ×2 (09:54→21:35)
[2019-03-07 11:10] LABS: Bedside Glucose 256 mg/dL (70-110)
--- NOTE | 2019-03-07 13:08 | CON.PCM_ITS ---
Problem List (1) NSTEMI (non-ST elevated myocardial infarction) Status: Acute Reason for Consult Date of Consultation: 03/07/19 History of Present Illness: The patient is a 63 year old F with past medical history significant for hypertension, obesity, dyslipidemia and Takotsubo's cardiomyopathy. Her last echocardiogram was in January of this year where and she had normal LV systolic function. She did have diastolic dysfunction though. Patient presented to the hospital with complaints of acute onset shortness of breath. Denied any chest pain. No arm neck or jaw discomfort. In the emergency room, she was noted to be markedly hypertensive. Chest x-ray revealed bilateral infiltrates versus pulmonary edema. Patient was treated acutely with nitroglycerin and diuretics. She improved with that and presently is asymptomatic. Her troponin has been noted to be elevated. Also new onset T wave inversions were noted on the EKG. Her BNP was mildly elevated. Next Patient denies any history of exertional angina or dyspnea. According to her, she has had cardiac catheterization done in 2016. Looking at the medical records, there was no angiographic evidence of any coronary artery disease. [] Past Medical History Allergies/Adverse Reactions: Allergies ciprofloxacin [From Cipro] Allergy (Verified 03/05/19 23:18) Shortness of breath ciprofloxacin HCl [From Cipro] Allergy (Verified 03/05/19 23:18) Shortness of breath cyclobenzaprine [From Flexeril] Allergy (Verified 03/05/19 23:18) Rash cyclobenzaprine HCl [From Flexeril] Allergy (Verified 03/05/19 23:18) Rash ketorolac tromethamine [From Toradol] Allergy (Verified 03/05/19 23:18) Chest tightness sulfamethoxazole [From Bactrim] Allergy (Verified 03/05/19 23:18) Itching trimethoprim [From Bactrim] Allergy (Verified 03/05/19 23:18) Itching metformin Adverse Reaction (Verified 03/05/19 23:18) Other headache valacyclovir HCl [From Valtrex] Adverse Reaction (Verified 03/05/19 23:18) Other Home Medications: Ambulatory Orders Medication Instructions Recorded Ropinirole HCl [Requip] 1 mg PO QHS 05/07/16 carvedilol 3.125 mg tablet 3.125 mg PO BID #180 tab 08/14/18 proMETHazine tablet [Phenergan 25 mg PO Q6H PRN PRN #10 tab 08/17/18 tablet] Allopurinol 300 mg PO DAILY 09/17/18 Haloperidol 2 mg PO TID PRN PRN 09/17/18 Levothyroxine Sodium 75 mcg PO DAILY 09/17/18 Simvastatin 40 mg PO QHS 09/17/18 Candesartan Cilexetil [Atacand] 16 mg PO DAILY 11/30/18 Hydrocodone Bitart/Apap 5-325 1 tab PO Q6H PRN PRN 11/30/18 [[place] 5MG-325MG] Hydroxychloroquine [Plaquenil] 200 mg PO BIDCM 11/30/18 Montelukast Sodium 10 mg PO DAILY 11/30/18 Omeprazole 40 mg PO DAILY 11/30/18 Pregabalin [Lyrica] 225 mg PO BID 11/30/18 sertraline 50 mg tablet 25 mg PO DAILY tab 01/09/19 Insulin Glargine,Hum.rec.anlog 29 unit SQ DAILY 03/05/19 [Touchloé Solostar] Insulin Regular, Human [Humulin R] 75 unit IJ BID 03/05/19 Past Medical History (Chronic Problems): Chronic Problems (Last Reviewed 03/06/19 @ 06:45 by Jacques Santos MD) Fibromyalgia (Chronic) Congestive heart failure (Chronic) Type 2 diabetes mellitus (Chronic) 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) Diabetic gastroparesis (Chronic) Weakness of both lower extremities (Chronic) GERD (gastroesophageal reflux disease) (Chronic) Seizure disorder (Chronic) Paroxysmal atrial fibrillation (Chronic) Chronic pain syndrome (Chronic) Takotsubo cardiomyopathy (Chronic) Iron deficiency anemia (Chronic) Depression (Chronic) Morbid obesity with BMI of 40.0-44.9, adult (Chronic) HLD (hyperlipidemia) (Chronic) Benign essential HTN (Chronic) Surgical History: appendectomy, cholecystectomy Psychiatric History: Depression 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 - *Family History Paternal Family History: Family History (Last Reviewed 03/06/19 @ 05:13 by Jacques Santos MD) Mother Myocardial infarction Father Congestive heart failure Other Diabetes Heart disease History Items: Heart Disease, - - Bone cancer Maternal Family History: Family History (Last Reviewed 03/06/19 @ 05:13 by Jacques Santos MD) Mother Myocardial infarction Father Congestive heart failure Other Diabetes Heart disease History Items: COPD, Diabetes, Heart Disease, - - Smoker Lives: With Family Smoking Status: Never smoker Review of Systems - Review of Systems General: Denies: Fever, Chills HEENT: Denies: Head Aches Cardiovascular: Reports: Shortness of Breath at Rest. Denies: Chest Discomfort, Chest Discomfort at Rest, Chest Discomfort with Exertion, Orthopnea, PND, Palpitations, Near Syncope, Syncope Respiratory: Reports: Cough Neurological: Denies: History of TIA, History of CVA Hematologic/ Lymphatic: Denies: Easy Brusing, Easy Bleeding Objective: Vital Signs Temp Pulse Resp BP Pulse Ox 98.6 F 88 18 111/53 L 92 03/07/19 09:44 03/07/19 11:04 03/07/19 09:44 03/07/19 09:44 03/07/19 09:44 Oxygen Flow Rate (L/min) 1 Oxygen Delivery Method Room Air Weight: 123 kg Body Mass Index (BMI) 44.5 Finger Stick Blood Glucose 279 Intake and Output for Last 24 Hours 03/05/19 03/06/19 03/07/19 23:59 23:59 23:59 Intake Total 1067 / 1067 320 / 320 Output Total 1675 / 1675 Balance -608 / -608 320 / 320 General: Healthy Appearing, Awake, Alert, Oriented x 3, Obese HEENT: Atraumatic, Normocephalic Neck: Supple, No JVD Lungs: Clear to auscultation Cardiovascular: Regular Rhythm, Normal S1, Normal S2, No Murmurs, No Rubs Abdomen: Bowel Sounds Present, Soft Extremities: No edema Neurological: No Focal Motor or Sensory Deficit Psych/Mental Status: Appropriate 03/07/19 00:57: Troponin I 1.320 H* 03/07/19 03:41: Troponin I 1.030 H* 03/07/19 06:43: WBC 10.4, RBC 4.02 L, Hgb 10.5 L, Hct 34.1 L, MCV 84.8, MCH 26.1 L, MCHC 30.8 L, Plt Count 295, MPV 10.1, Immature Gran % (Auto) 0.300, Neut % (Auto) 59.6, Lymph % (Auto) 27.4, [place] % (Auto) 8.9, Eos % (Auto) 3.0, Baso % (Auto) 0.8, Absolute Neuts (auto) 6.2, Nucleated RBC % 0 03/07/19 06:43: Sodium 136, Potassium 4.6, Chloride 105, Carbon Dioxide 27.0, Anion Gap 4 L, BUN 25 H, Creatinine 1.62 H, Est GFR (MDRD) Af Amer 41 L, Est GFR (MDRD) Non-Af 34 L, BUN/Creatinine Ratio 15.4, Glucose 168 H, Calcium 8.7, Troponin I 1.060 H* 03/07/19 06:43: Troponin I Cancelled Rhythm: Normal sinus rhythm EKG: Presenting EKG showed sinus tachycardia. Nonspecific ST changes. A second EKG done shows global T wave inversions. ECHO: Echocardiogram done in January of this year showed ejection fraction of 65%. Diastolic dysfunction was noted. Stress Test: Cardiac Cath: PCI: CT Surgery: Holter monitor: EPS: PPM: CXR: Chest CT Scan: Assessment/Plan 1. Non-ST elevation myocardial infarction. May be secondary to demand phenomenon with severe hypertension and flash pulmonary edema at the time of presentation. However cannot rule out primary coronary artery disease. I will check bilateral renal Doppler for this lady to make sure she does not have any renal artery stenosis. If that is negative, then will recommend coronary angiography with cardiac catheterization and possible revascularization. Risks benefits alternatives were explained. Particular emphasis was given to the risk of contrast-induced nephropathy in view of her baseline renal insufficiency. She understands and wishes to proceed. If we do end up doing cardiac catheterization, I recommend that we keep the contrast load to minimum. 2. Hypertension. Continue current medications. Change furosemide to once daily p.o. 3. History of diabetes mellitus. 4. Acute on chronic renal insufficiency. Monitor creatinine. If creatinine continues to worsen, then I will wait for the kidney function to stabilize before any dye load is given. Next 5. Obesity. 6. History of dyslipidemia. 7. History of diastolic dysfunction.
[2019-03-07 13:48] LABS: Magnesium 1.9 mg/dL (1.6-2.6)
[2019-03-07] MEDS: Clopidogrel Bisulfate 300 MG Tablet PO (13:49)
[2019-03-07] MEDS: Nitroglycerin Oint 1 INCH PACKET TRANSDERM. ×2 (14:41→21:35)
[2019-03-07] MEDS: Loratadine 10 MG Tablet PO (17:03)
[2019-03-07 17:11] LABS: Bedside Glucose 228 mg/dL (70-110)
[2019-03-07] MEDS: Loperamide 2 MG Capsule 4 MG PO (19:03)
[2019-03-07] MEDS: Haloperidol 5 MG Tablet 2.5 MG PO (19:04)
--- NOTE | 2019-03-07 19:18 | PCM.PROGNOTE ---
Patient Problems: Active and Suspected Problems (Last Reviewed 03/06/19 @ 06:45 by Jacques Santos MD) Acute respiratory failure with hypoxia (Acute) CAP (community acquired pneumonia) (Acute) Septic shock (Acute) Flash pulmonary edema (Acute) Acute respiratory failure (Acute) NSTEMI (non-ST elevated myocardial infarction) (Acute) Subjective: Patient was seen and examined today, her pulse ox on room air is 92. I discussed the patient's care with pulmonary medicine today, pulmonary medicine feels the patient's antibiotics could be stopped, I stopped them today. Patient's EKG this morning showed evidence of T wave inversions across the precordial leads, her troponin was elevated and cardiology saw the patient today and feels the patient should undergo a cardiac catheterization after renal artery stenosis is ruled out.. Cardiology adjusted the patient's medications. Cardiology also ordered an ultrasound on the patient's renal arteries. - Physical Exam General: Alert, Oriented x3, Cooperative, No apparent distress, Well developed, Well nourished HEENT: Atraumatic, PERRLA, EOMI, Normocephalic Oral: Moist Mucosa Neck: Supple, Trachea Midline, Thyroid Normal Size and Texture Lungs: Clear to auscultation, Normal air movement, No rhonchi, No wheeze, No rales Cardiovascular: Regular rate, Regular Rhythm, Normal S1, Normal S2, No murmurs, No Ectopic Activity, PMI Normal, No rub noted, No Gallop Abdomen: Bowel Sounds Present, Soft, Non Tender, Non-Distended Extremities: No clubbing, No cyanosis, No edema, Capillary Refill Less than 3 Seconds Skin: No rashes, No breakdown Musculoskeletal: No Tenderness to Palpation of Joints or Extremities Neurological: Cranial nerves II-XII grossly intact, Neuro grossly intact, Sensory exam intact to light touch and pain, Coordination normal Psych/Mental Status: Normal Affect, Appropriate, Alert and oriented to time, place, person, mood and affect Vital Signs Temp Pulse Resp BP Pulse Ox 98.5 F 87 18 121/68 H 92 03/07/19 14:38 03/07/19 18:49 03/07/19 14:38 03/07/19 14:41 03/07/19 14:38 Oxygen Flow Rate (L/min) 1 Oxygen Delivery Method Room Air Weight: 123 kg Body Mass Index (BMI) 44.5 Finger Stick Blood Glucose 279 Intake and Output for Last 24 Hours 03/05/19 03/06/19 03/07/19 23:59 23:59 23:59 Intake Total 1067 / 1067 560 / 560 Output Total 1675 / 1675 Balance -608 / -608 560 / 560 Microbiology Past 72 Hours 03/06/19 15:20 Legionella Antigen - Final Urine Catheter - Catheter Streptococcus pneumoniae Antigen (M - Final Laboratory Tests Past 24 Hrs 03/07/19 03/07/19 03/07/19 00:57 03:41 06:43 WBC 10.4 RBC 4.02 L Hgb 10.5 L Hct 34.1 L MCV 84.8 MCH 26.1 L MCHC 30.8 L RDW Std Deviation 44.4 H RDW Coeff of Be 14.4 Plt Count 295 MPV 10.1 Immature Gran % (Auto) 0.300 Neut % (Auto) 59.6 Lymph % (Auto) 27.4 Mills % (Auto) 8.9 Eos % (Auto) 3.0 Baso % (Auto) 0.8 Absolute Neuts (auto) 6.2 Absolute Lymphs (auto) 2.86 Absolute Nucleated RBC 0.00 Nucleated RBC % 0 Sodium Potassium Chloride Carbon Dioxide Anion Gap BUN Creatinine Estim Creat Clear Calc Est GFR (MDRD) Af Amer Est GFR (MDRD) Non-Af BUN/Creatinine Ratio Glucose Calcium Magnesium Troponin I 1.320 H* 1.030 H* 03/07/19 03/07/19 03/07/19 06:43 06:43 06:43 WBC RBC Hgb Hct MCV MCH MCHC RDW Std Deviation RDW Coeff of Be Plt Count MPV Immature Gran % (Auto) Neut % (Auto) Lymph % (Auto) Mills % (Auto) Eos % (Auto) Baso % (Auto) Absolute Neuts (auto) Absolute Lymphs (auto) Absolute Nucleated RBC Nucleated RBC % Sodium 136 Potassium 4.6 Chloride 105 Carbon Dioxide 27.0 Anion Gap 4 L BUN 25 H Creatinine 1.62 H Estim Creat Clear Calc 32.84 Est GFR (MDRD) Af Amer 41 L Est GFR (MDRD) Non-Af 34 L BUN/Creatinine Ratio 15.4 Glucose 168 H Calcium 8.7 Magnesium 1.9 Troponin I 1.060 H* Cancelled POC Glucose 03/07/19 03/07/19 03/07/19 16:24 11:02 06:27 POC Glucose 228 H 256 H 176 H 03/06/19 21:46 POC Glucose 141 H Medical Necessity - Tobacco Use Smoking Status: Never smoker Assessment/Plan All Active Problems (Last Reviewed 03/06/19 @ 06:45 by Jacques Santos MD) Acute respiratory failure with hypoxia (Acute) CAP (community acquired pneumonia) (Acute) Septic shock (Acute) Flash pulmonary edema (Acute) Acute respiratory failure (Acute) NSTEMI (non-ST elevated myocardial infarction) (Acute) Acute kidney injury (Acute) Hyponatremia (Acute) Noninfective enterocolitis (Acute) #1 acute combined respiratory failure-probably secondary to flash pulmonary edema, patient is currently on room air at this time #2 acute on chronic diastolic congestive heart failure #3 [id number] patient will undergo a renal artery Doppler and ultimately will need a cardiac catheterization. #4 type 2 diabetes #5 hypertension #6 chronic kidney disease stage III-secondary to type 2 diabetes #7 elevated lactic acid-secondary to acute respiratory failure Code Visit Inpatient E&M: 22470 Subs Hosp L2
[2019-03-07] MEDS: Atorvastatin Calcium 40 MG Tablet PO (21:34)
[2019-03-07] MEDS: Pramipexole Di-HCl 0.5 MG Tablet PO (21:35)
[2019-03-07 22:40] LABS: Bedside Glucose 267 mg/dL (70-110)
[2019-03-07] MEDS: Fluticasone 0.05% 1 SPRAY NASAL.SRY NASAL (23:46)
[2019-03-08] VITALS (12 sets, daily range): BP systolic 112–166; BP diastolic 49–113; PULSE 68–86; RESP 14–18; TEMP 36.3–36.9; O2SAT 92–96
--- NOTE | 2019-03-08 01:31 | NURSING ---
Pt c/o inability to breathe through her nose. Was previously given a dose of Flonase. Placed on 2L NC for comfort.
[2019-03-08] MEDS: Glycerin/Hypromellose/PEG400 15 ml Bottle 1 DRP EACH EYE ×5 (02:38→20:23)
[2019-03-08] MEDS: Acetaminophen 325 MG Tablet 650 MG PO (06:01)
[2019-03-08] MEDS: Levothyroxine 75 MCG Tablet PO (06:02)
[2019-03-08] MEDS: Nitroglycerin Oint 1 INCH PACKET TRANSDERM. ×3 (06:14→22:56)
[2019-03-08] MEDS: Insulin Lispro 100 UNIT/ML INSULN.PEN SC ×4 (06:38→22:50)
[2019-03-08 06:46] LABS: Bedside Glucose 218 mg/dL (70-110)
[2019-03-08 08:41] LABS: Anion Gap 8 (5-15); BUN 19 mg/dL (7-18); BUN/Creat Ratio 17.3 RATIO (10-20); Calcium,Total 9.3 mg/dL (8.5-10.1); Chloride 105 mmol/L (98-107); EST Glomerular Filtration Rate 53 mL/min (>60); Est Glom Filt Rate - Afr Amer 64 mL/min (>60); Estimated Creatinine Clearance 48.37 ml/min; Glucose 207 mg/dL (74-106); Potassium 4.3 mmol/L (3.5-5.1); Sodium Level 142 mmol/L (136-145)
--- NOTE | 2019-03-08 08:45 | RAD_ITS ---
STUDY: X-RAY CHEST REASON FOR EXAM: Female, 63 years old. Shortness of breath, dyspnea TECHNIQUE: PA and lateral views of the chest. COMPARISON: 03/06/2019 FINDINGS: EKG leads project over the chest. Small focal opacity of the right lung base projects in the right middle lobe on the lateral view but is less conspicuous when compared to AP chest from 03/06/2019. There is no demonstrated pleural abnormality. Normal size heart. Normal mediastinum and judith. Normal visualized pulmonary arteries. There is atherosclerotic calcification of the aortic arch with tortuosity. There is demineralization of the osseous structures. Normal visualized ribs, clavicles, and shoulders. There is no demonstrated abnormality of the visualized soft tissue structures of the upper abdomen. RAD/Chest PA and Lateral IMPRESSION: 1. Favorable change. Minimal residual infiltrate in the right middle lobe. Electronically Signed: Jad Rogel MD at 10:49 EDT , Service support ,
[2019-03-08] MEDS: Carvedilol 3.125 MG TABLET PO ×2 (09:58→22:49)
[2019-03-08] MEDS: Hydroxychloroquine 200 MG Tablet PO ×2 (09:58→17:18)
[2019-03-08] MEDS: Furosemide 20 MG Tablet PO (09:59)
[2019-03-08] MEDS: Enoxaparin 40 MG/0.4 ML Syringe SC (09:59)
[2019-03-08] MEDS: Nystatin Powder 15gm Bottle 1 APPLIC TOPICAL ×2 (09:59→22:52)
[2019-03-08] MEDS: Fluticasone 0.05% 1 SPRAY NASAL.SRY NASAL ×2 (09:59→22:49)
[2019-03-08] MEDS: Allopurinol 300 MG Tablet PO (10:00)
[2019-03-08] MEDS: Montelukast 10 MG Tablet PO (10:00)
[2019-03-08] MEDS: Pantoprazole Sodium 40 MG Tablet PO (10:00)
[2019-03-08] MEDS: Sertraline 50 MG Tablet 25 MG PO (10:00)
[2019-03-08] MEDS: Clopidogrel Bisulfate 75 MG Tablet PO (10:00)
[2019-03-08] MEDS: Pregabalin 75 MG Capsule 225 MG PO ×2 (10:13→22:51)
[2019-03-08] MEDS: Loratadine 10 MG Tablet PO (10:13)
[2019-03-08] MEDS: proMETHazine 25 MG Tablet PO (10:13)
--- NOTE | 2019-03-08 11:01 | PN.CARD_ITS ---
Subjectve: No complaints. No chest pain or shortness of breath. Objective: Vital Signs Temp Pulse Resp BP Pulse Ox 97.4 F L 78 18 113/56 L 92 03/08/19 09:42 03/08/19 09:42 03/08/19 09:42 03/08/19 09:42 03/08/19 09:42 Oxygen Flow Rate (L/min) 2 Oxygen Delivery Method Room Air Weight: 118.7 kg Body Mass Index (BMI) 44.5 Finger Stick Blood Glucose 279 Intake and Output for Last 24 Hours 03/06/19 03/07/19 03/08/19 23:59 23:59 23:59 Intake Total 1067 / 1067 1017 / 1017 240 / 240 Output Total 1675 / 1675 Balance -608 / -608 1017 / 1017 240 / 240 General: Awake, Alert, Oriented x 3, No Acute Distress HEENT: Atraumatic Lungs: Clear to auscultation Cardiovascular: Regular Rhythm, Normal S1, Normal S2 Extremities: No edema 03/07/19 06:43: Magnesium 1.9 03/08/19 08:10: Sodium 142, Potassium 4.3, Chloride 105, Carbon Dioxide 29.0, Anion Gap 8, BUN 19 H, Creatinine 1.10 H, Est GFR (MDRD) Af Amer 64, Est GFR (MDRD) Non-Af 53 L, BUN/Creatinine Ratio 17.3, Glucose 207 H, Calcium 9.3 Rhythm: EKG: ECHO: Stress Test: Cardiac Cath: PCI: CT Surgery: Holter monitor: EPS: PPM: CXR: Chest CT Scan: Medical Necessity - Tobacco Use Smoking Status: Never smoker Assessment/Plan 1. Non-ST elevation myocardial infarction. May be secondary to demand phenomenon with severe hypertension, diastolic dysfunction and flash pulmonary edema at the time of presentation. However cannot rule out primary coronary artery disease. I will check bilateral renal Doppler for this lady to make sure she does not have any renal artery stenosis. If that is negative, then will recommend coronary angiography with cardiac catheterization and possible rev ascularization. Risks benefits alternatives were explained. Particular emphasis was given to the risk of contrast-induced nephropathy in view of her baseline renal insufficiency. She understands and wishes to proceed. If we do end up doing cardiac catheterization, I recommend that we keep the contrast load to minimum. 2. Hypertension. Continue current medications. Change furosemide to once daily p.o. 3. History of diabetes mellitus. 4. Acute on chronic renal insufficiency. Resolved. Creatinine improved 5. Obesity. 6. History of dyslipidemia. 7. History of diastolic dysfunction.
[2019-03-08 11:35] LABS: Bedside Glucose 304 mg/dL (70-110)
[2019-03-08] MEDS: Haloperidol 5 MG Tablet 2.5 MG PO (14:36)
[2019-03-08 17:30] LABS: Bedside Glucose 302 mg/dL (70-110)
[2019-03-08] MEDS: HYDROcodone Bitartrate/Apap 5/325 Tablet PO (18:17)
--- NOTE | 2019-03-08 18:18 | PCM.PROGNOTE ---
Patient Problems: Active and Suspected Problems (Last Reviewed 03/06/19 @ 06:45 by Jacques Santos MD) Acute respiratory failure with hypoxia (Acute) CAP (community acquired pneumonia) (Acute) Septic shock (Acute) Flash pulmonary edema (Acute) Acute respiratory failure (Acute) NSTEMI (non-ST elevated myocardial infarction) (Acute) Subjective: Patient was seen and examined today, she complained of shortness of breath, when asked the specifics, she stated her nose was stuffed up. Patient's pulse ox is been above 90% on room air. She is scheduled for a renal artery ultrasound tomorrow, patient's creatinine today was 1.1-this may be close to her baseline. - Physical Exam General: Alert, Oriented x3, Cooperative, No apparent distress, Well developed HEENT: Atraumatic, PERRLA, EOMI, Normocephalic Oral: Moist Mucosa Neck: Supple, Trachea Midline, Thyroid Normal Size and Texture Lungs: Clear to auscultation, Normal air movement, No rhonchi, No wheeze, No rales Cardiovascular: Regular rate, Regular Rhythm, Normal S1, Normal S2, No murmurs Abdomen: Bowel Sounds Present, Soft, Non Tender Extremities: No clubbing, No cyanosis, No edema, Capillary Refill Less than 3 Seconds Skin: No rashes, No breakdown Neurological: Cranial nerves II-XII grossly intact, Neuro grossly intact, Sensory exam intact to light touch and pain, Coordination normal Psych/Mental Status: Normal Affect, Appropriate, Alert and oriented to time, place, person, mood and affect Vital Signs Temp Pulse Resp BP Pulse Ox 98.1 F 83 17 159/79 H 96 03/08/19 15:42 03/08/19 15:42 03/08/19 15:42 03/08/19 15:42 03/08/19 15:42 Oxygen Flow Rate (L/min) 2 Oxygen Delivery Method Room Air Weight: 118.7 kg Body Mass Index (BMI) 44.5 Finger Stick Blood Glucose 279 Intake and Output for Last 24 Hours 03/06/19 03/07/19 03/08/19 23:59 23:59 23:59 Intake Total 1067 / 1067 1017 / 1017 480 / 480 Output Total 1675 / 1675 Balance -608 / -608 1017 / 1017 480 / 480 Microbiology Past 72 Hours 03/06/19 15:20 Legionella Antigen - Final Urine Catheter - Catheter Streptococcus pneumoniae Antigen (M - Final Laboratory Tests Past 24 Hrs 03/08/19 08:10 Sodium 142 Potassium 4.3 Chloride 105 Carbon Dioxide 29.0 Anion Gap 8 BUN 19 H Creatinine 1.10 H Estim Creat Clear Calc 48.37 Est GFR (MDRD) Af Amer 64 Est GFR (MDRD) Non-Af 53 L BUN/Creatinine Ratio 17.3 Glucose 207 H Calcium 9.3 POC Glucose 03/08/19 03/08/19 03/08/19 17:13 11:31 06:37 POC Glucose 302 H 304 H 218 H 03/07/19 21:31 POC Glucose 267 H Medical Necessity - Tobacco Use Smoking Status: Never smoker Assessment/Plan All Active Problems (Last Reviewed 03/06/19 @ 06:45 by Jacques Santos MD) Acute respiratory failure with hypoxia (Acute) CAP (community acquired pneumonia) (Acute) Septic shock (Acute) Flash pulmonary edema (Acute) Acute respiratory failure (Acute) NSTEMI (non-ST elevated myocardial infarction) (Acute) Acute kidney injury (Acute) Hyponatremia (Acute) Noninfective enterocolitis (Acute) #1 acute combined respiratory failure-probably secondary to flash pulmonary edema, patient is currently on room air at this time #2 acute on chronic diastolic congestive heart failure-patient is on Lasix #3 [id number] patient will undergo a renal artery Doppler tomorrow and ultimately will need a cardiac catheterization. #4 type 2 diabetes #5 hypertension #6 chronic kidney disease stage III-secondary to type 2 diabetes, creatinine has improved today, repeat BMP tomorrow #7 elevated lactic acid-secondary to acute respiratory failure Code Visit Inpatient E&M: 51832 Subs Hosp L2
[2019-03-08] MEDS: 0.9% NaCl Peripheral Flush Adult/Peds IV (18:20)
[2019-03-08] MEDS: Pramipexole Di-HCl 0.5 MG Tablet PO (22:51)
[2019-03-08] MEDS: Atorvastatin Calcium 40 MG Tablet PO (23:03)
[2019-03-08 23:46] LABS: Bedside Glucose 321 mg/dL (70-110)
[2019-03-09] VITALS (15 sets, daily range): BP systolic 113–142; BP diastolic 51–73; PULSE 57–82; RESP 12–18; TEMP 36.6–36.9; O2SAT 88–97
[2019-03-09] MEDS: Glycerin/Hypromellose/PEG400 15 ml Bottle 1 DRP EACH EYE ×5 (03:51→12:26)
[2019-03-09] MEDS: Acetaminophen 325 MG Tablet 650 MG PO (04:01)
[2019-03-09 05:48] LABS: Anion Gap 8 (5-15); BUN 18 mg/dL (7-18); BUN/Creat Ratio 14.9 RATIO (10-20); Calcium,Total 9.3 mg/dL (8.5-10.1); Chloride 101 mmol/L (98-107); Creatinine, Serum 1.21 mg/dL (0.55-1.02); EST Glomerular Filtration Rate 48 mL/min (>60); Est Glom Filt Rate - Afr Amer 58 mL/min (>60); Estimated Creatinine Clearance 43.97 ml/min; Glucose 354 mg/dL (74-106); Potassium 4.3 mmol/L (3.5-5.1); Sodium Level 138 mmol/L (136-145)
[2019-03-09] MEDS: Levothyroxine 75 MCG Tablet PO (05:48)
[2019-03-09] MEDS: Nitroglycerin Oint 1 INCH PACKET TRANSDERM. (05:57)
--- NOTE | 2019-03-09 06:35 | EKG12_ITS ---
Test Reason : Blood Pressure : / mmHG Vent. Rate : 073 BPM Atrial Rate : 073 BPM P-R Int : 158 ms QRS Dur : 088 ms QT Int : 502 ms P-R-T Axes : 031 -30 202 degrees QTc Int : 553 ms Normal sinus rhythm Left axis deviation ST & Marked T wave abnormality, consider anterolateral ischemia Prolonged QT Abnormal ECG When compared with ECG of 07-MAR-2019 00:21, MANUAL COMPARISON REQUIRED, DATA IS UNCONFIRMED Confirmed by ABIMAEL CURRY, CAROLE ([id number]), technical writer and editor ADAMS GOODEN ([id number]) on 03/10/2019 2:07:21 PM Referred By: CHRISTIANO Confirmed By:CAROLE VARGHESE MD
[2019-03-09 07:01] LABS: Bedside Glucose 311 mg/dL (70-110)
[2019-03-09] MEDS: Clopidogrel Bisulfate 75 MG Tablet PO (07:29)
[2019-03-09] MEDS: Carvedilol 3.125 MG TABLET PO (07:29)
--- NOTE | 2019-03-09 10:14 | PN.CARD_ITS ---
Subjectve: Patient seen and evaluated. Underwent cardiac catheterization this morning. Objective: Vital Signs Temp Pulse Resp BP Pulse Ox 97.9 F 77 14 116/73 91 03/09/19 06:45 03/09/19 07:34 03/09/19 06:45 03/09/19 06:45 03/09/19 08:04 Oxygen Flow Rate (L/min) 2 Oxygen Delivery Method Room Air Weight: 258 lb 9.636 oz Body Mass Index (BMI) 44.5 Finger Stick Blood Glucose 279 Intake and Output for Last 24 Hours 03/07/19 03/08/19 03/09/19 23:59 23:59 23:59 Intake Total 1017 / 1017 1327 / 1327 200 / 200 Balance 1017 / 1017 1327 / 1327 200 / 200 General: Awake, Alert, Oriented x 3 HEENT: PERRL, EOMI, Sclera Non Icteric Neck: Supple, Good ROM, No Lymph Node Enlargement Lungs: Clear to auscultation Cardiovascular: Regular Rhythm, Normal S1, Normal S2, No Murmurs, No Rubs, No Gallops Vascular: No Carotid Bruits, Normal Femoral Pulses, Normal Radial Pulses, Normal Dorsalis Pedal Pulse, Normal Posterior Tibial Pulses Abdomen: Bowel Sounds Present, Soft, Non Tender, No HSM, No Organomegaly Extremities: No Cyanosis, No Clubbing, No edema Skin: No Rashes Lymphatic: No Lymph Node Enlargement Neurological: No Focal Motor or Sensory Deficit Psych/Mental Status: Appropriate 03/09/19 05:10: Sodium 138, Potassium 4.3, Chloride 101, Carbon Dioxide 29.0, Anion Gap 8, BUN 18, Creatinine 1.21 H, Est GFR (MDRD) Af Amer 58 L, Est GFR (MDRD) Non-Af 48 L, BUN/Creatinine Ratio 14.9, Glucose 354 H, Calcium 9.3 Rhythm: EKG: ECHO: Stress Test: Cardiac Cath: PCI: CT Surgery: Holter monitor: EPS: PPM: CXR: Chest CT Scan: Medical Necessity - Tobacco Use Smoking Status: Never smoker Assessment/Plan 1. Non-ST elevation myocardial infarction * Patient underwent cardiac catheterization today which demonstrated essentially normal coronary arteries and normal ejection fraction. It is likely that the above was secondary to demand ischemia from severe hypertension on presentation. 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 * 2. Severe hypertension * Pressure under better control now. * Patient also underwent a distal arteriogram which demonstrated no evidence of renal artery stenosis. * Left ventricular ejection fraction was noted to be normal. * * Thank you for allowing me to participate in the care of your patient. Please don't hesitate to call if any issues arise
--- NOTE | 2019-03-09 10:53 | CL.D_ITS ---
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 The risks and benefits of the procedure as well as a full d escription of our services here and current unavailability of surgical backup were fully explained to the patient and/or their significant other prior to the catheterization. The Timeout was completed, verifying the correct patient and procedure. The patient's procedural site was prepped and draped in the usual fashion. Local anesthetic was given subcutaneously to right radial region with Lidocaine 2% . Local anesthetic was given subcutaneously to right groin region with Lidocaine 2%. Using a modified Seldinger technique, arterial access was obtained via the right femoral artery, a 5Fr sheath was ins erted. Left Coronary Artery selective angiography was performed in multiple views using a 5 Fr. JL4 catheter. Right Coronary Artery selective angiography was then performed in multiple views using a 5 Fr. 3DRC (Rodriguez) catheter. Left Ventriculography was performed in ERAZO projection using a 5 Fr. Pigtail catheter. LV to AO pullback pressures were then recorded.The arterial sheath was pull ed and a Mynx closure device was deployed for hemostasis CORONARY ANGIOGRAPHY DOMINANCE: Right Dominant LEFT HEART ASSESSMENT Left Ventricular Ejection Fraction: by LV Gram 60 % Normal LV wall motion Normal Left Ventricular systolic function Normal Left Ventricular systolic function LEFT MAIN: Angiographically normal LEFT ANTERIOR DESCENDING ARTERY: Angiographically normal CIRCUMFLEX ARTERY: Angiographically normal RIGHT CORONARY ARTERY: Angiographically normal COMPLICATIONS No Complications PROCEDURE MEDICATIONS Fentanyl 50 mcg IV Versed 1 mg IV Oxygen: 2 L/min via nasal cannula Aspirin (325mg) 1 Tabs PO @ 03/09/2019 09:28:58 SUMMARY OF HEMODYNAMIC DATA Time AIR REST ECG 09:28:05 AO 92/58 (71) SA 09:50:18 AO 115/64 (86) 09:54:08 LV 123/6, 14 09:57:42 LV 110/7, 13 09:57:49 LV 128/1, 12 09:58:34 LVp 118/2, 11 09:58:41 AOp 130/61 (88) 09:58:46 AO 136/59 (89) 09:59:08 Signed By Perfecto Haskins MD On 03/09/2019 10:52:01 AM Perfecto Haskins MD
[2019-03-09 11:46] LABS: Bedside Glucose 288 mg/dL (70-110)
--- NOTE | 2019-03-09 12:11 | PCM.DC ---
- Discharge Diagnoses Current Active Problems: Current Active and Chronic Problems (Last Reviewed 03/06/19 @ 06:45 by Jacques Santos MD) Acute respiratory failure with hypoxia (Acute) CAP (community acquired pneumonia) (Acute) Septic shock (Acute) Flash pulmonary edema (Acute) Acute respiratory failure (Acute) NSTEMI (non-ST elevated myocardial infarction) (Acute) You will use the following diet at home:: Calorie/Carbohydrate Controlled (specify 1200, 1400, etc) - 1800 brain Your food should be the consistency of: Regular Your liquids should be the consistency of: Regular/Thin Discharge Activity: Return to Normal Activity Weight Bearing Status: Full weight bearing Allergies/Adverse Reactions: Allergies ciprofloxacin [From Cipro] Allergy (Verified 03/05/19 23:18) Shortness of breath ciprofloxacin HCl [From Cipro] Allergy (Verified 03/05/19 23:18) Shortness of breath cyclobenzaprine [From Flexeril] Allergy (Verified 03/05/19 23:18) Rash cyclobenzaprine HCl [From Flexeril] Allergy (Verified 03/05/19 23:18) Rash ketorolac tromethamine [From Toradol] Allergy (Verified 03/05/19 23:18) Chest tightness sulfamethoxazole [From Bactrim] Allergy (Verified 03/05/19 23:18) Itching trimethoprim [From Bactrim] Allergy (Verified 03/05/19 23:18) Itching metformin Adverse Reaction (Verified 03/05/19 23:18) Other headache valacyclovir HCl [From Valtrex] Adverse Reaction (Verified 03/05/19 23:18) Other Medications to take at Discharge Ropinirole HCl [Requip] 1 mg PO QHS 05/07/16 carvedilol 3.125 mg tablet 3.125 mg PO BID #180 tab 08/14/18 proMETHazine tablet [Phenergan tablet] 25 mg PO Q6H PRN PRN #10 tab 08/17/18 Allopurinol 300 mg PO DAILY 09/17/18 Haloperidol 2 mg PO TID PRN PRN 09/17/18 Levothyroxine Sodium 75 mcg PO DAILY 09/17/18 Simvastatin 40 mg PO QHS 09/17/18 Candesartan Cilexetil [Atacand] 16 mg PO DAILY 11/30/18 Hydrocodone Bitart/Apap 5-325 [[place] 5/325] 1 tab PO Q6H PRN PRN 11/30/18 Hydroxychloroquine [Plaquenil] 200 mg PO BIDCM 11/30/18 Montelukast Sodium 10 mg PO DAILY 11/30/18 Omeprazole 40 mg PO DAILY 11/30/18 Pregabalin [Lyrica] 225 mg PO BID 11/30/18 sertraline 50 mg tablet 25 mg PO DAILY tab 01/09/19 Furosemide [Lasix] 20 mg PO DAILY #30 tab 03/09/19 Insulin Glargine,Hum.rec.anlog [Toujeo Solostar] 25 unit SQ DAILY #0 03/09/19 Insulin Regular, Human [Humulin R] 25 unit IJ BID #1 vial 03/09/19 Nystatin Powder [Mycostatin Powder] 1 applic TOPICAL BID bottle 03/09/19 The following prescriptions were given: Insulin Regular, Human [Humulin R] 25 unit IJ BID #1 vial Furosemide [Lasix] 20 mg PO DAILY #30 tab Prescription Printed Primary Care Physician: Devan Parks MD [Primary Care Provider] - Please follow up with your Primary Care Physician in: in one week Test Results: Test results from this visit will be discussed in further detail at your follow-up appointment, if applicable.
[2019-03-09] MEDS: Pantoprazole Sodium 40 MG Tablet PO (12:25)
[2019-03-09] MEDS: Montelukast 10 MG Tablet PO (12:25)
[2019-03-09] MEDS: Hydroxychloroquine 200 MG Tablet PO (12:25)
[2019-03-09] MEDS: Sertraline 50 MG Tablet 25 MG PO (12:26)
[2019-03-09] MEDS: Allopurinol 300 MG Tablet PO (12:26)
[2019-03-09] MEDS: Fluticasone 0.05% 1 SPRAY NASAL.SRY NASAL (12:27)
[2019-03-09] MEDS: Nystatin Powder 15gm Bottle 1 APPLIC TOPICAL (12:27)
[2019-03-09] MEDS: Insulin Lispro 100 UNIT/ML INSULN.PEN SC (12:27)
[2019-03-09] MEDS: Pregabalin 75 MG Capsule 225 MG PO (12:31)
[2019-03-09] MEDS: Loratadine 10 MG Tablet PO (12:31)
--- NOTE | 2019-03-09 13:30 | NURSING ---
ambulated pt s/p heart cath recovery, pt tolerated well, no complications noted.
[2019-03-09] MEDS: Loperamide 2 MG Capsule 4 MG PO (14:07)
--- NOTE | 2019-03-10 14:23 | CASEMGMT ---
[facility] CM DC PHONE CALL DC DATE: 03/09/19 DC Disposition: Home Diagnosis on Discharge: LACE/STRATA: Acute Respiratory Failure Attempted call to home phone. No answer, and machine did not have name identifier. Suellen CARDOZON RN ACM
--- NOTE | 2019-03-11 08:37 | DS.PCM_ITS ---
Discharge Date and Diagnosis Date of Admission: 03/06/19 Date of Discharge: 03/09/19 - Primary Discharge Diagnosis #1 hypertensive emergency #2 acute combined respiratory failure-probably secondary to flash pulmonary edema from uncontrolled hypertension #3 acute on chronic diastolic congestive heart failure #4 non-STEMI #5 type 2 diabetes #6 chronic kidney disease stage III-secondary to type 2 diabetes 7 elevated lactic acid-secondary to acute respiratory failure - Secondary Discharge Diagnosis Chronic Problems (Last Reviewed 03/06/19 @ 06:45 by Jacques Santos MD) Fibromyalgia (Chronic) Congestive heart failure (Chronic) Type 2 diabetes mellitus (Chronic) 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) Diabetic gastroparesis (Chronic) Weakness of both lower extremities (Chronic) GERD (gastroesophageal reflux disease) (Chronic) Seizure disorder (Chronic) Paroxysmal atrial fibrillation (Chronic) Chronic pain syndrome (Chronic) Takotsubo cardiomyopathy (Chronic) Iron deficiency anemia (Chronic) Depression (Chronic) Morbid obesity with BMI of 40.0-44.9, adult (Chronic) HLD (hyperlipidemia) (Chronic) Benign essential HTN (Chronic) Hospital Course and Treatment Operations: None, - - EGD Procedures: 2-D Echocardiogram, Cardiac catheterization Summary of Care Provided: The patient is a 63 year old F seen in the emergency room at [facility] chief complaint of shortness of breath. Patient had BiPAP placed by EMS but she was unable to tolerate it, she stated her shortness of breath came on suddenly. Patient had a chest x-ray performed which showed bilateral infiltrates suggestive of either pneumonia or pulmonary edema, IV Lasix was given, nitroglycerin was given, patient was placed on a nonrebreather and albuterol treatment was given. BMP was noted to be 200, lactic acid was elevated at 5.5, patient had a leukocytosis. Patient was initially felt to be in septic shock, she was given IV antibiotics, and IV fluids. Patient was transferred to ICU and seen in consultation by pulmonary medicine, her respiratory status stabilized and she was moved to PCU. IV antibiotics were discontinued and it was felt that the patient actually had flash pulmonary edema, echocardiogram was not obtained due to the fact she had one done in January 2019 which showed a normal EF. Patient was treated with IV Lasix and was weaned off oxygen. She was seen in consultation by cardiology, cardiac enzymes elevated indicating a non-STEMI. On 03/09/2019, patient was taken for cardiac catheterization which showed no evidence of coronary artery disease and a normal EF. On 03/09/2019, patient was seen and examined: On examination she appeared in good health and spirits. Vital signs as documented. Skin warm and dry and without overt rashes. Neck without JVD. Lungs clear. Heart exam notable for regular rhythm, normal sounds and absence of murmurs, rubs or gallops. Abdomen unremarkable and without evidence of organomegaly, masses, or abdominal aortic enlargement. Extremities nonedematous. Neuro: Cranial nerves II through XII are grossly intact, no focal motor deficits were noted, sensation to light touch and pinprick is intact. Psych: Patient is alert and oriented x3, she does not appear anxious or depressed On 03/09/2019, patient was seen and examined felt to be in stable condition for discharge home. Note, sepsis was ruled out. - Physical Exam Vital Signs Temp Pulse Resp BP Pulse Ox 98.4 F 73 16 124/71 H 92 03/09/19 10:25 03/09/19 13:15 03/09/19 13:15 03/09/19 13:15 03/09/19 14:17 Oxygen Flow Rate (L/min) 2 Oxygen Delivery Method Room Air Weight: 117.3 kg Body Mass Index (BMI) 44.5 Finger Stick Blood Glucose 279 Intake and Output for Last 24 Hours 03/09/19 03/10/19 03/11/19 23:59 23:59 23:59 Intake Total 200 / 200 Balance 200 / 200 Microbiology Past 72 Hours 03/05/19 23:17 Blood Culture - Final Blood Culture (Wb) - Anticubital Right No growth in 5 days. 03/06/19 00:25 Blood Culture - Final Blood Culture (Wb) - Left Hand No growth in 5 days. Discharge Activity: Return to Normal Activity Weight Bearing Status: Full weight bearing Home Medications: Medications to take at Discharge Ropinirole HCl [Requip] 1 mg PO QHS 05/07/16 carvedilol 3.125 mg tablet 3.125 mg PO BID #180 tab 08/14/18 proMETHazine tablet [Phenergan tablet] 25 mg PO Q6H PRN PRN #10 tab 08/17/18 Allopurinol 300 mg PO DAILY 09/17/18 Haloperidol 2 mg PO TID PRN PRN 09/17/18 Levothyroxine Sodium 75 mcg PO DAILY 09/17/18 Simvastatin 40 mg PO QHS 09/17/18 Candesartan Cilexetil [Atacand] 16 mg PO DAILY 11/30/18 Hydrocodone Bitart/Apap 5-325 [[place] 5/325] 1 tab PO Q6H PRN PRN 11/30/18 Hydroxychloroquine [Plaquenil] 200 mg PO BIDCM 11/30/18 Montelukast Sodium 10 mg PO DAILY 11/30/18 Omeprazole 40 mg PO DAILY 11/30/18 Pregabalin [Lyrica] 225 mg PO BID 11/30/18 sertraline 50 mg tablet 25 mg PO DAILY tab 01/09/19 Furosemide [Lasix] 20 mg PO DAILY #30 tab 03/09/19 Insulin Glargine,Hum.rec.anlog [Toujeo Solostar] 25 unit SQ DAILY #0 03/09/19 Insulin Regular, Human [Humulin R] 25 unit IJ BID #1 vial 03/09/19 Nystatin Powder [Mycostatin Powder] 1 applic TOPICAL BID bottle 03/09/19 Following Prescrptions Were Given to Patient: Insulin Regular, Human [Humulin R] 25 unit IJ BID #1 vial Furosemide [Lasix] 20 mg PO DAILY #30 tab Prescription Printed Primary Care Physician: Devan Parks MD [Primary Care Provider] - Please follow up with your Primary Care Physician in: in one week Please Follow Up With: Clementina Ware Disposition: Home Minutes spent on discharge:: 32 Patient Condition:: Stable Medical Necessity - Tobacco Use Smoking Status: Never smoker Meaningful Use Info Meaningful Use Diagnoses (Choose all that apply): AMI - AMI Aspirin given w/in 24hrs of arrival?: Yes ASA at discharge?: No Reason ASA not ordered:: Allergy - no evidence of ASHD Statins at discharge?: Yes Basil/ARB at discharge?: Yes Beta Maria Teresa at discharge?: Yes Done w/ Acute MA measure.: Yes Documented LVEF (%): 60 Code Visit Inpatient E&M: 71037 Disch Hosp
== END 2019-03-09 14:39 | disposition home or self-care (01) | DRG 280 ==
LOC: ED 03-06 02:29 → ICU 03-06 03:32 → PCU 03-09 07:21 → ICU 03-09 10:57 → PCU 03-09 10:57
PROVIDERS: Internal Medicine Cardiovascular Disease; Internal Medicine Critical Care Medicine; Admitting Provider Hospitalist; Emergency Provider Emergency Medicine; Family Provider Family Medicine; PCP Family Medicine; Visit Provider Internal Medicine
DX: I13.0 Hypertensive heart and chronic kidney disease with heart failure and stage 1 through stage 4 chronic kidney disease, or unspecified chronic kidney disease (principal); J96.01 Acute respiratory failure with hypoxia; I21.4 Non-ST elevation (NSTEMI) myocardial infarction; I50.33 Acute on chronic diastolic (congestive) heart failure; J96.02 Acute respiratory failure with hypercapnia; N17.9 Acute kidney failure, unspecified; E87.1 Hypo-osmolality and hyponatremia; Z68.41 Body mass index [BMI] 40.0-44.9, adult; E66.01 Morbid (severe) obesity due to excess calories; K31.84 Gastroparesis; E11.43 Type 2 diabetes mellitus with diabetic autonomic (poly)neuropathy; N18.3 Chronic kidney disease, stage 3 (moderate); E11.22 Type 2 diabetes mellitus with diabetic chronic kidney disease; Z79.4 Long term (current) use of insulin; M06.9 Rheumatoid arthritis, unspecified; G25.81 Restless legs syndrome
CPT/HCPCS: 36415; 36600; 71045; 71046; 75625; 80048; 82803; 82962; 83605; 83735; 83880; 84100; 84484; 85025; 85379; 87040; 87449; 87641; 93005; 93458; 93970; 94640; 94667; 94668; 97110; 97162; 97165; 97530; 97535; 99152; 99153; 99251; 99285; C1760; J7030; J7050; Q9967; A4216; C1769; C1894; G0463; J1940; J2405

== ENCOUNTER 2019-03-18 17:07 | Inpatient (IN) | payer MEDICARE, SELFPAY ==
[2019-03-06 02:48] VITALS: BMI 44.5
[2019-03-18] VITALS (21 sets, daily range): BP systolic 92–202; BP diastolic 49–166; PULSE 69–122; RESP 12–38; TEMP 36.3–37.4; O2SAT 60–100; BMI 43.7; BMI 43.2; BMI 43.1
--- NOTE | 2019-03-18 17:34 | EKG12_ITS ---
Test Reason : SOB Blood Pressure : / mmHG Vent. Rate : 125 BPM Atrial Rate : 125 BPM P-R Int : 144 ms QRS Dur : 100 ms QT Int : 302 ms P-R-T Axes : 032 -29 086 degrees QTc Int : 435 ms Sinus tachycardia T wave abnormality, consider lateral ischemia Abnormal ECG Confirmed by MOHAMUD CURRY, JED ([id number]), senior editor VIDAL MCDERMOTT ([id number]) on 03/19/2019 1:11:49 PM Referred By: Henok Damian Confirmed By:JIMMY MALLORY MD
--- NOTE | 2019-03-18 17:34 | RAD_ITS ---
STUDY: X-RAY CHEST REASON FOR EXAM: Female, 63 years old. Shortness of breath and chest pain TECHNIQUE: Frontal and lateral views of the chest. COMPARISON: March 08, 2019 FINDINGS: Mild increase in interstitial and vascular markings, right greater than left. There is no demonstrated pleural abnormality. Normal size heart. Normal mediastinum and judith. Normal visualized pulmonary arteries. Normal visualized aortic arch and descending thoracic aorta. Normal visualized thoracic spine. Normal visualized ribs, clavicles, and shoulders. There is no demonstrated abnormality of the visualized soft tissue structures of the upper abdomen. RAD/Chest 1 View (Portable) IMPRESSION: Mild edema as above Electronically Signed: Chung Martinez MD at 17:50 EDT , Service support ,
--- NOTE | 2019-03-18 17:36 | ED.VISSUMM ---
- ER Visit Summary Date of Service: 03/18/19 Chief Complaint: As of breath History of Present Illness: The patient is a 63 F history of diabetes, hypertension, CHF, hypercholesterolemia. Recent admission for CHF. Patient states she is doing well this afternoon started having worsening shortness of breath. Cough of clear sputum. No fever. No chest pain. No hemoptysis. No history of DVT or PE. No calf pain or swelling. She denies any fever or chills. Physical Examination: Older female. Mildly anxious. Vital signs are stable. Her pulse ox is 90% on room air c/w hypoxia. No fever. H EENT exam unremarkable. Neck nontender no JVD. Lungs few scattered wheezes. No rales or rhonchi. Equal symmetrical. Heart regular rhythm no murmur. Abdomen soft nontender. Extremities moves all 4. Calves nontender without edema or cords. Neurologically awake and alert no focal motor deficits. Test Results: Portable cxr showed pulmonary edema consistent with CHF. EKG showed sinus tachycardia rate of 125. No signs of TX. White count elevated 18,000. Hemoglobin 12. Electrolytes unremarkable BUN 21 creatinine 1.3. Glucose of 364 normal gap. Troponin normal. BNP pending. Blood gas showed a pH 7.28 PCO2 46 PO2 of 64 and oxygen 89% sat consistent with respiratory failure and respiratory acidosis. Emergency Department Course and Treatment: Elderly female with dyspnea and wheezing. Will be treated with a DuoNeb aerosol. Will be worked up for causes of shortness of breath. Patient progressively became more short of breath. Was placed on BiPAP. Was not tolerated BiPAP well and became more hypoxic and had to be intubated. Patient was given etomidate 20 mg IV and succinylcholine. Was intubated. She was a difficult intubation due to the amount of pulmonary edema in her posterior pharynx and the location of her trachea. She was anterior and deep. Post intubation her sats in the high 90s. Treatment Plan: IV Lasix. Admit to the ICU I have already spoken to the hospitalist. Disposition: Admission Impression: Acute dyspnea with hypoxia Acute exacerbation CHF Respiratory failure and respiratory acidosis Intubated by ER physician Critical care time 35 minutes This note was generated with [email or web address] dictation software. It may contain incorrect words, spelling, and punctuation that were not noted in review of the chart prior to signing ED Disposition - Plan for ED Patient: Referrals: Devan Parks MD [Primary Care Provider] -
[2019-03-18] MEDS: Ipratropium/Albuterol Sulfate 3 ML AMPUL.NEB INHALATION (18:04)
[2019-03-18 18:05] LABS: Base Excess -5 mmol/L (-2 to +2); Bicarbonate 21.8 mmol/L (22-26); Blood Gas Specimen Type ART; O2 Delivery Device Nasal Can; PO2 64 mmHG (75-100); SITE L Brachial; SO2 89 % (95-99); Time Given 1755; Total Carbon Dioxide 23 mmol/L; pCO2 46.6 mmHg (35-45); pH 7.28 (7.35-7.45)
[2019-03-18 18:11] LABS: Absolute Lymphocyte Count 1.93 X10^3/uL (0.83-4.51); Absolute Neutrophil Count 14.3 X10^3/uL (2.0-7.7); Basophil# 0.12 X10^3/uL; Basophil% 0.7 % (0-1); Eosinophil# 0.34 X10^3/uL; Eosinophils% 1.9 % (0-5); Hematocrit 39.6 % (37-47); Hemoglobin 12.9 g/dL (12.0-15.0); Lymphocyte # 1.93 X10^3/ul (4.0); Lymphocyte % 10.6 % (19-41); Mean Corp Hgb Conc 32.6 g/dL (32-36); Mean Corpuscular Hgb 27.4 pg (27.0-32.0); Mean Corpuscular Volume 84.3 fL (81-99); Mean Platelet Vol. 10.4 fl (6.2-12.0); Monocyte# 1.38 X10^3/uL; Monocyte% 7.6 % (0-10); NRBC Flagged by Analyzer 0 % (0-5); Neutrophil # 14.34 X10^3/uL (2.7-7.7); Neutrophil % 78.7 % (47-70); Platelet Count 399 K/mm3 (150-450); RBC Distribution Width CV 13.8 % (11.6-14.6); RBC Distribution Width SD 42.2 fl (35.1-43.9); White Blood Count 18.2 K/mm3 (4.4-11.0)
[2019-03-18 18:34] LABS: Anion Gap 5 (5-15); BUN 21 mg/dL (7-18); BUN/Creat Ratio 15.2 RATIO (10-20); Calcium,Total 9.9 mg/dL (8.5-10.1); Chloride 105 mmol/L (98-107); Creatinine, Serum 1.38 mg/dL (0.55-1.02); EST Glomerular Filtration Rate 41 mL/min (>60); Est Glom Filt Rate - Afr Amer 49 mL/min (>60); Estimated Creatinine Clearance 38.55 ml/min; Glucose 364 mg/dL (74-106); Potassium 4.4 mmol/L (3.5-5.1); Sodium Level 134 mmol/L (136-145)
[2019-03-18] MEDS: LORazepam 2 MG/ML Syringe 1 MG IV (18:37)
[2019-03-18 18:53] LABS: BNP,B-Type NATRIURETIC PEPTIDE 790.7 pg/mL (0-100)
--- NOTE | 2019-03-18 19:02 | ED.RN ---
O2 SAT DECREASED TO 34 DURING INTUBATION. HEART RATE50. COPIOUS AMOUNTS OF THICK SPUTUM. INTUBATION COMPLETE. O2 INCREASED TO 98. BILATERAL BREATH SOUNDS.
[2019-03-18] MEDS: Etomidate 20 MG/10 ML Vial IV (19:10)
[2019-03-18] MEDS: Propofol 10MG/Ml 1,000 MG/100 ML Bottle 11.061 MG CONT INF (19:11)
[2019-03-18] MEDS: Furosemide 100 MG/10 ML Vial 60 MG IV (19:25)
--- NOTE | 2019-03-18 19:28 | RAD_ITS ---
We are attempting to reach an attending provider to discuss findings. An addendum with communication details will be sent when the communication is complete. STUDY: X-RAY CHEST REASON FOR EXAM: Female, 63 years old. ET tube placement and shortness of breath TECHNIQUE: Single frontal view of the chest. COMPARISON: March 18, 2019 5:37 PM FINDINGS: New ET tube in the right mainstem bronchus, unchanged. New Enteric tube in the stomach. Moderate edema increased especially right lower lobe. Subsegmental atelectasis right lower lobe. There is no demonstrated pleural abnormality. Normal size heart. Normal mediastinum and judith. Normal visualized pulmonary arteries. Normal visualized aortic arch and descending thoracic aorta. Normal visualized thoracic spine. Normal visualized ribs, clavicles, and shoulders. There is no demonstrated abnormality of the visualized soft tissue structures of the upper abdomen. RAD/Chest 1 View (Portable) IMPRESSION: Moderate edema increased. New enteric and ET tubes as above. Recommend withdrawing the ET tube from the right mainstem bronchus 4 cm. Electronically Signed: Chung Martinez MD at 20:10 EDT , Service support ,
--- NOTE | 2019-03-18 19:43 | ED.RN ---
DR LUNA READ THE CHEST X-RAY AT THE BEDSIDE,STATED ETT NEEDS PULLED BACK TO 22CM.ALSO OG IN CORRECT POSITION.RT AT THE BEDSIDE PILLED ETT TO 22CM.
--- NOTE | 2019-03-18 19:50 | ED.RN ---
DR LUNA CONFIRMED PLACEMENT OF ETT AND OG.
--- NOTE | 2019-03-18 19:52 | NURSING ---
Let ED know they could bring pt. when they are able to ICU 2.
--- NOTE | 2019-03-18 19:58 | RAD_ITS ---
STUDY: X-RAY CHEST REASON FOR EXAM: Female, 63 years old. ET tube placement and shortness of breath TECHNIQUE: Single frontal view of the chest. COMPARISON: March 18, 2019 7:30 PM and 5:37 PM FINDINGS: ET tube now 16 mm above the melisa. Enteric tube below the diaphragm. Moderate edema and right lower lobe infiltrate. There is no demonstrated pleural abnormality. Normal size heart. Normal mediastinum and judith. Normal visualized pulmonary arteries. Normal visualized aortic arch and descending thoracic aorta. Normal visualized thoracic spine. Normal visualized ribs, clavicles, and shoulders. There is no demonstrated abnormality of the visualized soft tissue structures of the upper abdomen. RAD/Chest 1 View (Portable) IMPRESSION: ET tube now 16 mm above the melisa. Moderate interstitial edema and right lower lobe airspace disease unchanged. Electronically Signed: Chung Martinez MD at 20:18 EDT , Service support ,
--- NOTE | 2019-03-18 20:02 | HP.PCM_ITS ---
Problem List (1) Acute respiratory failure with hypoxia Status: Acute (2) CAP (community acquired pneumonia) Status: Inactive (3) Septic shock Status: Inactive (4) Flash pulmonary edema Status: Acute (5) Acute respiratory failure Status: Acute (6) Noninfectious enteritis Status: Inactive (7) NSTEMI (non-ST elevated myocardial infarction) Status: Resolved (8) Hypoglycemia Status: Inactive (9) Severe sepsis Status: Inactive (10) Acute kidney injury Status: Acute (11) Hypokalemia Status: Inactive (12) Hyponatremia Status: Acute (13) Noninfective enterocolitis Status: Acute (14) Fibromyalgia Status: Chronic (15) Congestive heart failure Status: Chronic Qualifiers: (16) Type 2 diabetes mellitus Status: Chronic (17) Old myocardial infarct Status: Chronic (18) Diabetic gastroparesis Status: Chronic (19) Weakness of both lower extremities Status: Chronic (20) GERD (gastroesophageal reflux disease) Status: Chronic Qualifiers: (21) Seizure disorder Status: Chronic (22) Paroxysmal atrial fibrillation Status: Chronic (23) Chronic pain syndrome Status: Chronic (24) Takotsubo cardiomyopathy Status: Chronic (25) Iron deficiency anemia Status: Chronic Qualifiers: (26) Depression Status: Chronic Qualifiers: (27) Morbid obesity with BMI of 40.0-44.9, adult Status: Chronic (28) HLD (hyperlipidemia) Status: Chronic Qualifiers: (29) Benign essential HTN Status: Chronic History of Present Illness Date of Admission: 03/18/19 Chief Complaint: Dyspnea at rest and respiratory failure The patient is a 63 year old F with multiple comorbidities and recurrent admission, last one on 03/06/2019 for flash pulmonary edema associated with acute respiratory failure came to ED with severe shortness of breath, cough with clear sputum similar to the previous admission. This time, she did not respond to BiPAP and eventually was intubated after etomidate and succinylcholine by ER physician. As per ER physician, there is no history of cough. Chest x-ray suggestive of pulmonary edema. When I saw the patient, patient already was intubated on ventilator. Bilateral lower extremity swelling. During last admission, patient had cardiac cath because of non-STEMI which showed EF 60% by LV gram, and no significant coronary stenosis found. Patient last echo in January 2019 reported as EF 65% with evidence of diastolic dysfunction. No regional wall motion abnormality. Normal RV size and systolic function. Left atrium moderately enlarged. Mild mitral valve prolapse, posterior leaflet with trivial MR. Trivial TR not able to estimate RV systolic pressure. No pericardial effusion. Patient was discharged on Lasix. [] Past Medical History Past Medical History (Chronic Problems): Chronic Problems (Last Reviewed 03/06/19 @ 06:45 by Jacques Santos MD) Fibromyalgia (Chronic) Congestive heart failure (Chronic) Type 2 diabetes mellitus (Chronic) 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) Diabetic gastroparesis (Chronic) Weakness of both lower extremities (Chronic) GERD (gastroesophageal reflux disease) (Chronic) Seizure disorder (Chronic) Paroxysmal atrial fibrillation (Chronic) Chronic pain syndrome (Chronic) Takotsubo cardiomyopathy (Chronic) Iron deficiency anemia (Chronic) Depression (Chronic) Morbid obesity with BMI of 40.0-44.9, adult (Chronic) HLD (hyperlipidemia) (Chronic) Benign essential HTN (Chronic) Medical History: Medical History (Last Reviewed 03/06/19 @ 06:45 by Jacques Santos MD) Fibromyalgia (Chronic) M79.7 Congestive heart failure (Chronic) I50.9 Type 2 diabetes mellitus (Chronic) E11.9 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) I25.2 GERD (gastroesophageal reflux disease) (Chronic) K21.9 Seizure disorder (Chronic) G40.909 Paroxysmal atrial fibrillation (Chronic) I48.0 Chronic pain syndrome (Chronic) G89.4 Takotsubo cardiomyopathy (Chronic) I51.81 Iron deficiency anemia (Chronic) D50.9 Depression (Chronic) F32.9 Morbid obesity with BMI of 40.0-44.9, adult (Chronic) E66.01, Z68.41 HLD (hyperlipidemia) (Chronic) E78.5 Benign essential HTN (Chronic) I10 Diverticulitis K57.92 Diabetic gastroparesis E11.43, K31.84 Fibromyalgia M79.7 QIAN (obstructive sleep apnea) G47.33 Restless leg syndrome G25.81 History of CVA (cerebrovascular accident) (Inactive) Z86.73 Allergies ciprofloxacin [From Cipro] Allergy (Verified 03/05/19 23:18) Shortness of breath ciprofloxacin HCl [From Cipro] Allergy (Verified 03/05/19 23:18) Shortness of breath cyclobenzaprine [From Flexeril] Allergy (Verified 03/05/19 23:18) Rash cyclobenzaprine HCl [From Flexeril] Allergy (Verified 03/05/19 23:18) Rash ketorolac tromethamine [From Toradol] Allergy (Verified 03/05/19 23:18) Chest tightness sulfamethoxazole [From Bactrim] Allergy (Verified 03/05/19 23:18) Itching trimethoprim [From Bactrim] Allergy (Verified 03/05/19 23:18) Itching metformin Adverse Reaction (Verified 03/05/19 23:18) Other headache valacyclovir HCl [From Valtrex] Adverse Reaction (Verified 03/05/19 23:18) Other Home Medications: Ambulatory Orders Medication Instructions Recorded Ropinirole HCl [Requip] 1 mg PO QHS 05/07/16 carvedilol 3.125 mg tablet 3.125 mg PO BID #180 tab 08/14/18 proMETHazine tablet [Phenergan 25 mg PO Q6H PRN PRN #10 tab 08/17/18 tablet] Allopurinol 300 mg PO DAILY 09/17/18 Haloperidol 2 mg PO TID PRN PRN 09/17/18 Levothyroxine Sodium 75 mcg PO DAILY 09/17/18 Simvastatin 40 mg PO QHS 09/17/18 Candesartan Cilexetil [Atacand] 16 mg PO DAILY 11/30/18 Hydrocodone Bitart/Apap 5-325 1 tab PO Q6H PRN PRN 11/30/18 [Constantine 5/325] Hydroxychloroquine [Plaquenil] 200 mg PO BIDCM 11/30/18 Montelukast Sodium 10 mg PO DAILY 11/30/18 Omeprazole 40 mg PO DAILY 11/30/18 Pregabalin [Lyrica] 225 mg PO BID 11/30/18 sertraline 50 mg tablet 25 mg PO DAILY tab 01/09/19 Furosemide [Lasix] 20 mg PO DAILY #30 tab 03/09/19 Insulin Glargine,Hum.rec.anlog 25 unit SQ DAILY #0 03/09/19 [Touchloé Solostsussy] Insulin Regular, Human [Humulin R] 25 unit IJ BID #1 vial 03/09/19 Nystatin Powder [Mycostatin Powder] 1 applic TOPICAL BID bottle 03/09/19 Surgical History: Surgical History (Last Updated 03/09/19 @ 11:52 by Ashley Anton) History of cholecystectomy Z90.49 History of knee surgery Z98.890 History of left heart catheterization Onset Date: 03/09/19 Z98.890 Surgical History: appendectomy, cholecystectomy Psychiatric History: Depression 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 TECH history Smoking Status: Never smoker - *Family History Paternal Family History: Family History (Last Reviewed 03/06/19 @ 05:13 by Jacques Santos MD) Mother Myocardial infarction Father Congestive heart failure Other Diabetes Heart disease History Items: Heart Disease, - - Bone cancer Maternal Family History: Family History (Last Reviewed 03/06/19 @ 05:13 by Jacques Santos MD) Mother Myocardial infarction Father Congestive heart failure Other Diabetes Heart disease History Items: COPD, Diabetes, Heart Disease, - - Smoker Review of Systems Unable to obtain accurate/complete ROS d/t: Patient is intubated and sedated on ventilator VTE Information - Inpt Only VTE Present on Admission: No VTE Mechan Device Prophylaxis: None VTE Pharm Prophylaxis ordered?: Yes - Physical Exam General: - - Sedated on IV propofol. HEENT: Atraumatic, PERRLA, EOMI, Normocephalic Neck: Supple, No JVD, Negative Carotid Bruits Lungs: Diminished - Air entry is diminished bilaterally., Rales, - - Intubated on ventilator. Air entry bilateral equal. Cardiovascular: Regular rate, Regular Rhythm, Normal S1, Normal S2, No murmurs Abdomen: Bowel Sounds Present, Soft, Non Tender, Non-Distended Extremities: Edema Skin: No rashes, No breakdown Musculoskeletal: No Tenderness to Palpation of Joints or Extremities, Arthritic Changes Neurological: Cranial nerves II-XII grossly intact, Deep Tendon Reflexes 2+/4 and Symmetrical Vital Signs Temp Pulse Resp BP Pulse Ox 98.7 F 96 18 107/68 100 03/18/19 17:10 03/18/19 19:52 03/18/19 19:52 03/18/19 19:52 03/18/19 19:52 Oxygen Flow Rate (L/min) 100 Oxygen Delivery Method Mechanical Ventilator Weight: 270 lb 15.17 oz Body Mass Index (BMI) 43.7 Finger Stick Blood Glucose 279 Laboratory Tests Past 24 Hrs 03/18/19 03/18/19 03/18/19 17:55 17:55 17:55 WBC 18.2 H RBC 4.70 Hgb 12.9 Hct 39.6 MCV 84.3 MCH 27.4 MCHC 32.6 RDW Std Deviation 42.2 RDW Coeff of Be 13.8 Plt Count 399 MPV 10.4 Immature Gran % (Auto) 0.500 Neut % (Auto) 78.7 H Lymph % (Auto) 10.6 L [place] % (Auto) 7.6 Eos % (Auto) 1.9 Baso % (Auto) 0.7 Absolute Neuts (auto) 14.3 H Absolute Lymphs (auto) 1.93 Nucleated RBC % 0 Specimen Type Sample Site pH Bicarbonate Actual POC Total CO2 Base Excess O2 Saturation ABG pCO2 ABG pO2 O2 Delivery Device Liter Flow Blood Gas Notified Whom Blood Gas Notified Time Sodium 134 L Potassium 4.4 Chloride 105 Carbon Dioxide 24.0 Anion Gap 5 BUN 21 H Creatinine 1.38 H Estim Creat Clear Calc 38.55 Est GFR (MDRD) Af Amer 49 L Est GFR (MDRD) Non-Af 41 L BUN/Creatinine Ratio 15.2 Glucose 364 H Calcium 9.9 Troponin I < 0.015 B-Natriuretic Peptide 790.7 H 03/18/19 17:59 WBC RBC Hgb Hct MCV MCH MCHC RDW Std Deviation RDW Coeff of Be Plt Count MPV Immature Gran % (Auto) Neut % (Auto) Lymph % (Auto) [place] % (Auto) Eos % (Auto) Baso % (Auto) Absolute Neuts (auto) Absolute Lymphs (auto) Nucleated RBC % Specimen Type ART Sample Site L Brachial pH 7.28 L Bicarbonate Actual 21.8 L POC Total CO2 23 Base Excess -5 L O2 Saturation 89 L ABG pCO2 46.6 H ABG pO2 64 L O2 Delivery Device Nasal Can Liter Flow 4.0 Blood Gas Notified Whom ED Blood Gas Notified Time 1755 Sodium Potassium Chloride Carbon Dioxide Anion Gap BUN Creatinine Estim Creat Clear Calc Est GFR (MDRD) Af Amer Est GFR (MDRD) Non-Af BUN/Creatinine Ratio Glucose Calcium Troponin I B-Natriuretic Peptide Assessment/Plan All Active Problems (Last Reviewed 03/06/19 @ 06:45 by Jacques Santos MD) Acute respiratory failure with hypoxia (Acute) Flash pulmonary edema (Acute) Acute respiratory failure (Acute) NSTEMI (non-ST elevated myocardial infarction) (Resolved) Acute kidney injury (Acute) Hyponatremia (Acute) Noninfective enterocolitis (Acute) The patient is a 63 year old F with multiple comorbidities and recurrent admission, last one on 03/06/2019 for flash pulmonary edema associated with acute respiratory failure came to ED with severe shortness of breath, cough with clear sputum similar to the previous admission. This time, she did not respond to BiPAP and eventually was intubated after etomidate and succinylcholine by ER physician. As per ER physician, there is no history of cough. Chest x-ray suggestive of pulmonary edema. When I saw the patient, patient already was intubated on ventilator. Bilateral lower extremity swelling. 1. Acute hypoxic respiratory failure secondary to pulmonary edema from acute on chronic heart failure with preserved EF: Patient is being admitted in ICU after being intubated. Adjunct [employer] consulted for vent management. ABG was done on 4 L of oxygen through nasal cannula. Initially blood pressure was high 185/166 202/89 in ED but blood pressure dropped to 107/68 after Lasix 60 mg IV, etomidate, succinylcholine and on propofol drip. Advised to decrease propofol drip and add fentanyl drip as per ICU protocol. 2. Pulmonary edema from acute on chronic HFpEF, Exact etiology unclear but possible noncompliance: Started on Bumex drip 0.5 mg/h as the patient's blood pressure is low and perhaps will not be able to tolerate bolus. First troponin is negative. BNP 790. Cycle cardiac enzymes. Patient had detailed cardiac work-up. During last admission, patient had cardiac cath because of non-STEMI which showed EF 60% by LV gram, and no significant coronary stenosis found. Patient last echo in January 2019 reported as EF 65% with evidence of diastolic dysfunction. No regional wall motion abnormality. Normal RV size and systolic function. Left atrium moderately enlarged. Mild mitral valve prolapse, posterior leaflet with trivial MR. Trivial TR not able to estimate RV systolic pressure. No pericardial effusion. Patient was discharged on Lasix. Cardiac medications will be resumed as vitals and clinical conditions allow/ 3. Leukocytosis: WBC is 18.2 thousand. Neutrophils 78.7%. During previous admission, work-up for pneumonia was negative. Blood cultures x2, endotracheal sputum culture and urinary antigens ordered to rule out sepsis. Lactic acid is ordered. Until sepsis is ruled out, empirically started on IV Zosyn. Chest x- ray does not show any focal consolidation. 4. Acute kidney injury possible secondary to heart failure/renal vessel congestion: Patient baseline creatinine runs around 1.1. Currently when/creatinine 21/1.38. Monitor kidney function and electrolytes. Sodium 134. 5. Diabetes mellitus type 2: Accu-Chek essences cover with Humalog sliding scale 6. Other comorbidities include Takotsubo cardiomyopathy, paroxysmal A. fib, hypertension and dyslipidemia: 7. Iron deficiency anemia, chronic pain syndrome, seizure disorder, GERD: Multiple comorbidities complicates the present care and expect difficult and delay recovery DVT prophylaxis: On Lovenox 40 mg subcu daily Code Visit Inpatient E&M: 97299 Init Hosp L3
[2019-03-18] MEDS: fentaNYL drip 100 ML 5 MCG CONT INF (20:14)
[2019-03-18] MEDS: Enoxaparin 40 MG/0.4 ML Syringe SC (21:43)
[2019-03-18] MEDS: 0.9% NaCl Peripheral Flush Adult/Peds IV (21:43)
[2019-03-18] MEDS: Bumetanide 25 MG in CONTAINER,EMPTY 1 BAG CONT INF (22:00)
[2019-03-18] MEDS: Chlorhexidine 15 ML PO (22:30)
[2019-03-19] VITALS (34 sets, daily range): BP systolic 85–116; BP diastolic 39–85; PULSE 62–81; RESP 14–24; TEMP 37.2–37.9; O2SAT 96–100
[2019-03-19] MEDS: Insulin Lispro 100 UNIT/ML INSULN.PEN SC ×5 (00:06→23:33)
[2019-03-19] MEDS: 0.9% NaCl Peripheral Flush Adult/Peds IV ×2 (00:15→05:35)
[2019-03-19 00:20] LABS: Bedside Glucose 315 mg/dL (70-110)
[2019-03-19 01:51] LABS: Allen Test POS; Base Excess -1 mmol/L (-2 to +2); Bicarbonate 24.6 mmol/L (22-26); Blood Gas Specimen Type ART; FI02 100; Mode A-C; O2 Delivery Device Vent; PEEP 5; PO2 340 mmHG (75-100); RR 14; SITE R Brachial; SO2 100 % (95-99); Time Given 135; Total Carbon Dioxide 26 mmol/L; Vt 450; pH 7.33 (7.35-7.45)
[2019-03-19] MEDS: Ipratropium/Albuterol Sulfate 3 ML AMPUL.NEB INHALATION ×2 (03:43→06:33)
--- NOTE | 2019-03-19 04:29 | CPS ---
critical results read back to Dr. Damian
[2019-03-19 05:15] LABS: Absolute Lymphocyte Count 1.89 X10^3/uL (0.83-4.51); Absolute Neutrophil Count 8.9 X10^3/uL (2.0-7.7); Basophil# 0.06 X10^3/uL; Basophil% 0.5 % (0-1); Eosinophil# 0.15 X10^3/uL; Eosinophils% 1.2 % (0-5); Hematocrit 32.8 % (37-47); Hemoglobin 10.6 g/dL (12.0-15.0); Lymphocyte # 1.89 X10^3/ul (4.0); Lymphocyte % 15.4 % (19-41); Mean Corp Hgb Conc 32.3 g/dL (32-36); Mean Corpuscular Volume 83.5 fL (81-99); Mean Platelet Vol. 10.9 fl (6.2-12.0); Monocyte# 1.29 X10^3/uL; Monocyte% 10.5 % (0-10); NRBC Flagged by Analyzer 0 % (0-5); Neutrophil # 8.89 X10^3/uL (2.7-7.7); Neutrophil % 72.2 % (47-70); Platelet Count 355 K/mm3 (150-450); RBC Distribution Width CV 14.2 % (11.6-14.6); RBC Distribution Width SD 43.2 fl (35.1-43.9); Red Blood Count 3.93 M/mm3 (4.2-5.4); White Blood Count 12.3 K/mm3 (4.4-11.0)
[2019-03-19] MEDS: fentaNYL drip 100 ML 5 MCG CONT INF ×3 (05:19→20:27)
[2019-03-19] MEDS: Propofol 10MG/Ml 1,000 MG/100 ML Bottle 11.061 MG CONT INF (05:26)
[2019-03-19 05:27] LABS: Anion Gap 9 (5-15); BUN 27 mg/dL (7-18); BUN/Creat Ratio 17.1 RATIO (10-20); Calcium,Total 8.6 mg/dL (8.5-10.1); Chloride 106 mmol/L (98-107); Cholesterol 113 mg/dL (200); Creatinine, Serum 1.58 mg/dL (0.55-1.02); EST Glomerular Filtration Rate 35 mL/min (>60); Est Glom Filt Rate - Afr Amer 42 mL/min (>60); Estimated Creatinine Clearance 33.67 ml/min; Glucose 246 mg/dL (74-106); High Density Lipoprotein 53 mg/dL; Magnesium 2.1 mg/dL (1.6-2.6); Potassium 4.9 mmol/L (3.5-5.1); Sodium Level 139 mmol/L (136-145); Triglycerides 102 mg/dL; Very Low Density Lipoprotein 20 mg/dL (5-40)
[2019-03-19 05:56] LABS: Bedside Glucose 241 mg/dL (70-110)
--- NOTE | 2019-03-19 07:12 | PCM.CON.CC ---
Reason for Consult Date of Consultation: 03/19/19 Reason for Consultation: Respiratory failure History of Present Illness: The patient is a 63-year-old female, with a history as outlined below, who presented to the emergency department on March 18 with complaints of progressive shortness of breath and cough. History pertinent to the patient's hospitalization was obtained primarily via chart review, as the patient is currently intubated/sedated and there is no family members available at the bedside. The patient was just admitted to the hospital March 06, after presenting with acute respiratory failure in the setting of hypertensive emergency, decompensated heart failure and NSTEMI. During that respective admission, the patient was evaluated by cardiology and did in fact undergo a cardiac catheterization which revealed normal coronary arteries. Of note, the patient was previously reported to be intolerant of noninvasive positive pressure ventilation. On presentation to the emergency department, the patient was noted to be afebrile and hypertensive with an initial blood pressure documented to be 185/166. The patient was initially saturating 90% on room air. Laboratory evaluation revealed an elevated white blood cell count to 18,000. Arterial blood gas obtained on 4 L/min via nasal cannula revealed a pH of 7.28 with a corresponding PCO2 of 46 and PO2 of 64. Chemistry profile was notable for chronic kidney disease with a creatinine of 1.38. Glucose was elevated to 364. Initial troponin was negative. BNP was increased to 790. Initial plain film chest x-ray revealed sequelae of interstitial edema. During the patient's emergency department course, she was noted to become more short of breath and was therefore placed on BiPAP therapy. However, the patient did not tolerate BiPAP and subsequently required intubation. She was noted to be a difficult airway due to the anterior anatomic location of her trachea. The patient was subsequently transferred to the medical intensive care unit for ongoing management. Overnight, the patient was initially sedated with both propofol and fentanyl. She was also placed on a Bumex drip. In light of the aforementioned, the patient's blood pressures are quite low this morning. Her propofol was subsequently placed on hold. She is currently documented to be overall net -900 mL's for the admission. The patient's creatinine has increased this morning to 1.58. Troponin also bumped and is currently 0.578 with new T wave inversions noted on her EKG from this morning. Past Medical History Past Medical History (Chronic Problems): Chronic Problems (Last Reviewed 03/06/19 @ 06:45 by Jacques Santos MD) Fibromyalgia (Chronic) Congestive heart failure (Chronic) Type 2 diabetes mellitus (Chronic) 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) Diabetic gastroparesis (Chronic) Weakness of both lower extremities (Chronic) GERD (gastroesophageal reflux disease) (Chronic) Seizure disorder (Chronic) Paroxysmal atrial fibrillation (Chronic) Chronic pain syndrome (Chronic) Takotsubo cardiomyopathy (Chronic) Iron deficiency anemia (Chronic) Depression (Chronic) Morbid obesity with BMI of 40.0-44.9, adult (Chronic) HLD (hyperlipidemia) (Chronic) Benign essential HTN (Chronic) Medical History: Medical History (Last Reviewed 03/06/19 @ 06:45 by Jacques Santos MD) Fibromyalgia (Chronic) M79.7 Congestive heart failure (Chronic) I50.9 Type 2 diabetes mellitus (Chronic) E11.9 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) I25.2 GERD (gastroesophageal reflux disease) (Chronic) K21.9 Seizure disorder (Chronic) G40.909 Paroxysmal atrial fibrillation (Chronic) I48.0 Chronic pain syndrome (Chronic) G89.4 Takotsubo cardiomyopathy (Chronic) I51.81 Iron deficiency anemia (Chronic) D50.9 Depression (Chronic) F32.9 Morbid obesity with BMI of 40.0-44.9, adult (Chronic) E66.01, Z68.41 HLD (hyperlipidemia) (Chronic) E78.5 Benign essential HTN (Chronic) I10 Diverticulitis K57.92 Diabetic gastroparesis E11.43, K31.84 Fibromyalgia M79.7 QIAN (obstructive sleep apnea) G47.33 Restless leg syndrome G25.81 History of CVA (cerebrovascular accident) (Inactive) Z86.73 Allergies ciprofloxacin [From Cipro] Allergy (Verified 03/05/19 23:18) Shortness of breath ciprofloxacin HCl [From Cipro] Allergy (Verified 03/05/19 23:18) Shortness of breath cyclobenzaprine [From Flexeril] Allergy (Verified 03/05/19 23:18) Rash cyclobenzaprine HCl [From Flexeril] Allergy (Verified 03/05/19 23:18) Rash ketorolac tromethamine [From Toradol] Allergy (Verified 03/05/19 23:18) Chest tightness sulfamethoxazole [From Bactrim] Allergy (Verified 03/05/19 23:18) Itching trimethoprim [From Bactrim] Allergy (Verified 03/05/19 23:18) Itching metformin Adverse Reaction (Verified 03/05/19 23:18) Other headache valacyclovir HCl [From Valtrex] Adverse Reaction (Verified 03/05/19 23:18) Other Home Medications: Ambulatory Orders Medication Instructions Recorded Ropinirole HCl [Requip] 1 mg PO QHS 05/07/16 carvedilol 3.125 mg tablet 3.125 mg PO BID #180 tab 08/14/18 proMETHazine tablet [Phenergan 25 mg PO Q6H PRN PRN #10 tab 08/17/18 tablet] Allopurinol 300 mg PO DAILY 09/17/18 Haloperidol 2 mg PO TID PRN PRN 09/17/18 Levothyroxine Sodium 75 mcg PO DAILY 09/17/18 Simvastatin 40 mg PO QHS 09/17/18 Candesartan Cilexetil [Atacand] 16 mg PO DAILY 11/30/18 Hydrocodone Bitart/Apap 5-325 1 tab PO Q6H PRN PRN 11/30/18 [[place] 5/325] Hydroxychloroquine [Plaquenil] 200 mg PO BIDCM 11/30/18 Montelukast Sodium 10 mg PO DAILY 11/30/18 Omeprazole 40 mg PO DAILY 11/30/18 Pregabalin [Lyrica] 225 mg PO BID 11/30/18 sertraline 50 mg tablet 25 mg PO DAILY tab 01/09/19 Furosemide [Lasix] 20 mg PO DAILY #30 tab 03/09/19 Insulin Glargine,Hum.rec.anlog 25 unit SQ DAILY #0 03/09/19 [Toujeo Solostar] Insulin Regular, Human [Humulin R] 25 unit IJ BID #1 vial 03/09/19 Nystatin Powder [Mycostatin Powder] 1 applic TOPICAL BID bottle 03/09/19 Surgical History: Surgical History (Last Updated 03/09/19 @ 11:52 by Ashley Anton) History of cholecystectomy Z90.49 History of knee surgery Z98.890 History of left heart catheterization Onset Date: 03/09/19 Z98.890 Surgical History: appendectomy, cholecystectomy Psychiatric History: Depression [employer] History: No pertinent [employer] history Smoking Status: Never smoker - *Family History Paternal Family History: Family History (Last Reviewed 03/06/19 @ 05:13 by Jacques Santos MD) Mother Myocardial infarction Father Congestive heart failure Other Diabetes Heart disease History Items: Heart Disease, - - Bone cancer Maternal Family History: Family History (Last Reviewed 03/06/19 @ 05:13 by Jacques Santos MD) Mother Myocardial infarction Father Congestive heart failure Other Diabetes Heart disease History Items: COPD, Diabetes, Heart Disease, - - Smoker Review of Systems Unable to obtain accurate/complete ROS d/t: Due to current intubation and mechanical ventilation status. Objective: The patient's most recent lab work, culture data and imaging studies have all been personally reviewed. Surface echocardiogram from January 2019 revealed normal LV size with mild concentric LVH and an ejection fraction of 65%. There was evidence of diastolic dysfunction. - Physical Exam General: - - Intubated, sedated and mechanically ventilated. No ventilator dyssynchrony noted. HEENT: Atraumatic, PERRLA, Normocephalic Oral: No Gingival or Mucosal Lesions/ Ulcerations, - - Endotracheal and OG tubes currently in place Neck: Supple, No Nodes, Trachea Midline Lungs: No rhonchi, No wheeze, No rales, Diminished Cardiovascular: Regular rate, Regular Rhythm, Normal S1, Normal S2 Abdomen: Bowel Sounds Present, Soft, Non Tender, Obese Extremities: No clubbing, No cyanosis, Edema Skin: No breakdown Musculoskeletal: No Muscle Wasting Lymphatic: No Cervical, Supraclavicular, or Inguinal Adenopathy Neurological: Neuro grossly intact, - - The patient responds appropriately to verbal stimulation. Vital Signs Temp Pulse Resp BP Pulse Ox 99.2 F H 62 14 87/42 L 97 03/19/19 07:00 03/19/19 07:00 03/19/19 07:00 03/19/19 07:00 03/19/19 07:00 Oxygen Flow Rate (L/min) 100 Oxygen Delivery Method Mechanical Ventilator Weight: 269 lb 13.533 oz Body Mass Index (BMI) 43.1 Finger Stick Blood Glucose 279 Intake and Output for Last 24 Hours 03/17/19 03/18/19 03/19/19 23:59 23:59 23:59 Intake Total 152.3 / 152.3 184.5 / 184.5 Output Total 1100 / 1100 150 / 150 Balance -947.7 / -947.7 34.5 / 34.5 Microbiology Past 72 Hours 03/18/19 21:00 Streptococcus pneumoniae Antigen (M - Final Urine Catheter - Catheter 03/18/19 21:00 Legionella Antigen - Final Urine Catheter - Catheter Laboratory Tests Past 24 Hrs 03/18/19 03/18/19 03/18/19 17:55 17:55 17:55 WBC 18.2 H RBC 4.70 Hgb 12.9 Hct 39.6 MCV 84.3 MCH 27.4 MCHC 32.6 RDW Std Deviation 42.2 RDW Coeff of Be 13.8 Plt Count 399 MPV 10.4 Immature Gran % (Auto) 0.500 Neut % (Auto) 78.7 H Lymph % (Auto) 10.6 L Roosevelt % (Auto) 7.6 Eos % (Auto) 1.9 Baso % (Auto) 0.7 Absolute Neuts (auto) 14.3 H Absolute Lymphs (auto) 1.93 Nucleated RBC % 0 Specimen Type Sample Site pH Bicarbonate Actual POC Total CO2 Base Excess O2 Saturation O2 % ABG pCO2 ABG pO2 Reuben Test Respiration Rate O2 Delivery Device Liter Flow Minute Volume Vent Mode Tidal Volume POC PEEP Blood Gas Notified Whom Blood Gas Notified Time Sodium 134 L Potassium 4.4 Chloride 105 Carbon Dioxide 24.0 Anion Gap 5 BUN 21 H Creatinine 1.38 H Estim Creat Clear Calc 38.55 Est GFR (MDRD) Af Amer 49 L Est GFR (MDRD) Non-Af 41 L BUN/Creatinine Ratio 15.2 Glucose 364 H Calcium 9.9 Magnesium Troponin I < 0.015 B-Natriuretic Peptide 790.7 H Triglycerides Cholesterol LDL Cholesterol VLDL Cholesterol HDL Cholesterol 03/18/19 03/18/19 03/19/19 17:59 21:00 00:15 WBC RBC Hgb Hct MCV MCH MCHC RDW Std Deviation RDW Coeff of Be Plt Count MPV Immature Gran % (Auto) Neut % (Auto) Lymph % (Auto) Roosevelt % (Auto) Eos % (Auto) Baso % (Auto) Absolute Neuts (auto) Absolute Lymphs (auto) Nucleated RBC % Specimen Type ART Sample Site L Brachial pH 7.28 L Bicarbonate Actual 21.8 L POC Total CO2 23 Base Excess -5 L O2 Saturation 89 L O2 % ABG pCO2 46.6 H ABG pO2 64 L Reuben Test Respiration Rate O2 Delivery Device Nasal Can Liter Flow 4.0 Minute Volume Vent Mode Tidal Volume POC PEEP Blood Gas Notified Whom ED Blood Gas Notified Time 1755 Sodium Potassium Chloride Carbon Dioxide Anion Gap BUN Creatinine Estim Creat Clear Calc Est GFR (MDRD) Af Amer Est GFR (MDRD) Non-Af BUN/Creatinine Ratio Glucose Calcium Magnesium Troponin I 0.349 H 0.553 H B-Natriuretic Peptide Triglycerides Cholesterol LDL Cholesterol VLDL Cholesterol HDL Cholesterol 03/19/19 03/19/19 03/19/19 01:45 04:40 04:40 WBC 12.3 H RBC 3.93 L Hgb 10.6 L Hct 32.8 L MCV 83.5 MCH 27.0 MCHC 32.3 RDW Std Deviation 43.2 RDW Coeff of Be 14.2 Plt Count 355 MPV 10.9 Immature Gran % (Auto) 0.200 Neut % (Auto) 72.2 H Lymph % (Auto) 15.4 L Roosevelt % (Auto) 10.5 H Eos % (Auto) 1.2 Baso % (Auto) 0.5 Absolute Neuts (auto) 8.9 H Absolute Lymphs (auto) 1.89 Nucleated RBC % 0 Specimen Type ART Sample Site R Brachial pH 7.33 L Bicarbonate Actual 24.6 POC Total CO2 26 Base Excess -1 O2 Saturation 100 H O2 % 100 ABG pCO2 47.0 H ABG pO2 340 H* Reuben Test POS Respiration Rate 14 O2 Delivery Device Vent Liter Flow Minute Volume 8.00 Vent Mode A-C Tidal Volume 450 POC PEEP 5 Blood Gas Notified Whom ICU Blood Gas Notified Time 135 Sodium 139 Potassium 4.9 Chloride 106 Carbon Dioxide 24.0 Anion Gap 9 BUN 27 H Creatinine 1.58 H Estim Creat Clear Calc 33.67 Est GFR (MDRD) Af Amer 42 L Est GFR (MDRD) Non-Af 35 L BUN/Creatinine Ratio 17.1 Glucose 246 H Calcium 8.6 Magnesium 2.1 Troponin I B-Natriuretic Peptide Triglycerides 102 Cholesterol 113 LDL Cholesterol 40 VLDL Cholesterol 20 HDL Cholesterol 53 03/19/19 04:40 WBC RBC Hgb Hct MCV MCH MCHC RDW Std Deviation RDW Coeff of Be Plt Count MPV Immature Gran % (Auto) Neut % (Auto) Lymph % (Auto) Roosevelt % (Auto) Eos % (Auto) Baso % (Auto) Absolute Neuts (auto) Absolute Lymphs (auto) Nucleated RBC % Specimen Type Sample Site pH Bicarbonate Actual POC Total CO2 Base Excess O2 Saturation O2 % ABG pCO2 ABG pO2 Reuben Test Respiration Rate O2 Delivery Device Liter Flow Minute Volume Vent Mode Tidal Volume POC PEEP Blood Gas Notified Whom Blood Gas Notified Time Sodium Potassium Chloride Carbon Dioxide Anion Gap BUN Creatinine Estim Creat Clear Calc Est GFR (MDRD) Af Amer Est GFR (MDRD) Non-Af BUN/Creatinine Ratio Glucose Calcium Magnesium Troponin I 0.578 H B-Natriuretic Peptide Triglycerides Cholesterol LDL Cholesterol VLDL Cholesterol HDL Cholesterol POC Glucose 03/19/19 03/19/19 05:48 00:06 POC Glucose 241 H 315 H Clinical Impression(s) from Imaging Studies Chest X-Ray 03/18/19 17:34 IMPRESSION: Mild edema as above Electronically Signed: Chung Martinez MD at 17:50 EDT , Service support , Chest X-Ray 03/18/19 19:28 IMPRESSION: Moderate edema increased. New enteric and ET tubes as above. Recommend withdrawing the ET tube from the right mainstem bronchus 4 cm. Electronically Signed: Chung Martinez MD at 20:10 EDT , Service support , ADDENDUM: 03/18/192024 IMPRESSION: Moderate edema increased. New enteric and ET tubes as above. Recommend withdrawing the ET tube from the right mainstem bronchus 4 cm. N.B. : The above information has been verbally conveyed by Chung Martinez MD to Dr. Chris MD, on 03/18/2019 20:18:28 (ET). Electronically Signed: Chung Martinez MD at 20:10 EDT , Service support , Chest X-Ray 03/18/19 19:58 IMPRESSION: ET tube now 16 mm above the melisa. Moderate interstitial edema and right lower lobe airspace disease unchanged. Electronically Signed: Chung Martinez MD at 20:18 EDT , Service support , Assessment/Plan RECOMMENDATIONS: 1. Place Bumex drip on hold, given tenuous hemodynamics. 2. Continue to trend troponins. 3. Obtain echocardiogram. 4. Continue antibiotics, pending infectious work-up. 5. Start tube feeds today. 6. Obtain sputum culture, urine culture and check MRSA screen. 7. Wean FiO2 to maintain oxygen saturations at or above 90%. 8. Continue appropriate ICU prophylaxis. IMPRESSIONS: 1. Acute combined respiratory failure Initially felt to be secondary to decompensated heart failure/flash pulmonary edema in the setting of uncontrolled hypertension noted on admission. However, there is some concern for a potential underlying pulmonary infectious process as well. The patient's acid-base status has improved with invasive mechanical ventilatory support. However, in light of her tenuous hemodynamics, would recommend holding her continuous diuretic infusion. The patient's FiO2 will be weaned over the course of today to maintain oxygen saturations at or above 90%. In addition to the aforementioned, the patient did have new T wave inversions and a troponin leak noted overnight. We will continue to trend her troponins accordingly and obtain a repeat echocardiogram. Okay from my perspective to begin tube feeds today. 2. Leukocytosis/low-grade fevers The patient did present to the emergency department with elevated blood pressures, but was noted to be tachycardic and tachypneic in the setting of an elevated white blood cell count. Therefore, I agree with being proactive and covering for a potential infectious process. Blood and urine cultures will be collected. Will obtain a repeat plain film chest x-ray this morning, as there is some concern for an evolving right-sided infiltrate. Recommend continuing broad-spectrum antimicrobial coverage for now. MRSA screen will be checked. 3. Acute on chronic heart failure with preserved ejection fraction/troponin elevation/T wave inversions The patient appears to have been diuresed just under 1 L over the last 12 hours or so. Her blood pressures are a bit on the low side. Therefore, I have discontinued the patient's continuous Bumex drip. We will continue to trend her troponins until they have plateaued. I have a low clinical index of suspicion for an acute ischemic event, given that the patient just had a cardiac catheterization completed without significant coronary disease identified. Repeat echocardiogram is currently pending. 4. Diabetes mellitus/hypertension/morbid obesity Complicates care, management, recovery and prognosis. Initiate sliding scale insulin coverage once tube feeds are started. Physical therapy evaluation once medically stabilized. TIME: 42 minutes of critical care time, independent of procedures, was spent addressing the patient's acute combined respiratory failure, acute on chronic heart failure preserved ejection fraction, troponin elevation, review of all data and collaboration with the care team. ([id number]) Code Visit [id number]: [id number] Critical care first hour
--- NOTE | 2019-03-19 07:51 | ECHOCS_ITS ---
Reason For Study: DYSPNEA/SOB Procedure This was a 2D Doppler, Color Flow transthoracic echocardiogram. The study was technically difficult. Exam performed portable in ICU/CCU. Left Ventricle Normal size and thickness. The estimated ejection fraction is 55 %. Stage 2 diastolic dysfunction. No regional wall motion abnormalities noted. Right Ventricle Normal RV size. Normal systolic function. Atria The left atrium is mildly enlarged. Normal right atrium. No doppler evidence for ASD. Mitral Valve There is no mitral valve stenosis. No mitral valve insufficiency. Tricuspid Valve There is no tricuspid stenosis. Trivial tricuspid valve insufficiency. Unable to estimate RV systolic pressure due to insufficient tricuspid regurgitant envelope. Aortic Valve Bicuspid aortic valve. There is no aortic stenosis. No aortic valve insufficiency. Pulmonic Valve There is no pulmonic valvular stenosis. No pulmonic valve insufficiency. Great Vessels Normal aortic root. Pericardium/Pleural No pericardial effusion. Medication Diluted definity 4ml given slow IV push to enhance endocardial definition. MMode/2D Measurements & Calculations LVIDd: 4.9 cm IVSd: 1.4 cm Ao root diam: 3.0 cm LVIDs: 3.4 cm LVPWd: 1.1 cm RVDd: 4.0 cm FS: 30.1 % LAV(MOD-bp): 67.1 ml LVAd ap4: 30.6 cm2 SV(MOD-sp4): 61.4 ml LAV(MOD-bp) Indexed: 29.6 ml/m2 EDV(MOD-sp4): 102.3 ml LAV(MOD-sp2): 59.8 ml EDV(sp4-el): 105.9 ml LAV(MOD-sp4): 69.1 ml LVAs ap4: 18.2 cm2 ESV(MOD-sp4): 40.9 ml ESV(sp4-el): 42.5 ml EF(MOD-sp4): 60.0 % EF(sp4-el): 59.8 % SV(sp4-el): 63.3 ml LA A4 area: 22.2 cm2 LA dimension(2D): 3.3 cm RA A4 area: 16.6 cm2 Time Measurements MV dec time: 0.33 sec Doppler Measurements & Calculations MV E max juan: 91.2 cm/sec Lat Peak E' Juan: 6.7 cm/sec Med Peak E' Juan: 5.7 cm/sec MV A max juan: 101.3 cm/sec E/E' lat: 13.6 E/E' med: 16.0 MV E/A: 0.90 Ao V2 max: 196.8 cm/sec LV V1 max: 126.1 cm/sec PA V2 max: 118.3 cm/sec Ao max P.5 mmHg LV V1 max P.4 mmHg Interpretation Summary The study was technically difficult. Diluted definity 4ml given slow IV push to enhance endocardial definition. The estimated ejection fraction is 55 %. Stage 2 diastolic dysfunction. The left atrium is mildly enlarged. Trivial tricuspid valve insufficiency. Bicuspid aortic valve. The study was technically difficult. Ordering Physician: Austin Hawley Referring Physician: Henok Damian Performed By: Karine Nino RDCS
--- NOTE | 2019-03-19 07:55 | RAD_ITS ---
STUDY: X-RAY CHEST REASON FOR EXAM: Female, 63 years old. Shortness of breath. TECHNIQUE: Single AP portable view of the chest. COMPARISON: Comparison is made with prior study dated March 18, 2019. FINDINGS: An endotracheal tube is in situ. The tip is at the origin of the right mainstem bronchus. An orogastric tube is present with tip below the left hemidiaphragm. EKG electrodes are seen. There is evidence of vascular congestion and CHF. Superimposed bibasilar atelectasis more prominent on the left side. Small left pleural effusion. Normal size heart. Normal mediastinum and judith. Normal visualized pulmonary arteries. There is atherosclerotic tortuosity of the aortic arch and descending thoracic aorta. Normal visualized thoracic spine. Normal visualized ribs, clavicles, and shoulders. There is no demonstrated abnormality of the visualized soft tissue structures of the upper abdomen. RAD/Chest 1 View (Portable) IMPRESSION: The tip of the endotracheal tube is at the origin of the right mainstem bronchus. Progressive CHF with atelectasis and/or infiltrate at both lung bases worse on the left side. Blunting of the left costophrenic angle. Electronically Signed: Tristan De La Garza, at 12:49 EDT , Service support ,
[2019-03-19 08:39] LABS: Mucous, Urine 0 SEEN /hpf (<or=2+)
[2019-03-19 08:43] LABS: Color, Urine Yellow (Yellow); Glucose, Dipstick Normal (Normal); Ketone-Dipstick Negative (Negative); Leukocyte Esterase-Dipstick 500 /ul (Negative); Nitrite-Dipstick Negative (Negative); Occult Blood-Urine 25 /ul (Negative); Protein-Dipstick Negative (Negative); Urine Bilirubin Dipstick Negative (Negative); Urine Clarity Clear (Clear); Urine Urobilinogen Normal (Normal)
[2019-03-19 08:53] LABS: White Blood Cells 50-100 SEEN /hpf (0-5)
[2019-03-19 08:54] LABS: Bacteria RARE /hpf (None Seen); Hyaline Cast 0-5 SEEN /lpf (0-5); Red Blood Cells-Urine 0-5 SEEN /hpf (0-5); Renal Epithelial Cells 0-5 SEEN /hpf (0-5); Squamous Epithelial Cells - UA 0-5 SEEN /hpf (5-10)
--- NOTE | 2019-03-19 09:05 | PCM.PN.HOSP ---
Subjective: Patient seen and examined. She was admitted with complaint of shortness of breath and was intubated on account of acute on chronic hypoxic respiratory failure. Patient was recently discharged on 03/06/2019 to be managed for acute respiratory failure due to flash pulmonary edema. During this admission, upon being seen in the ED, she did not respond to BiPAP and so was eventually intubated. Patient still intubated. She was alert and calm. She was able to shake her head in response to questions, and denied any fever, chills, palpitations, dizziness chest pain, diarrhea or vomiting. Review of systems was otherwise negative. Labs and vitals reviewed. Pin Sticker on board. She had urine output of ~ 1.1L since admission. Bumex drip and propofol decreased; patient currently hypotensive, with systolic in 90s and MAP of 56 at time of review. Vitals/I&O's: Vital Signs Temp Pulse Resp BP Pulse Ox 99.4 F H 69 16 91/40 L 98 03/19/19 08:00 03/19/19 08:00 03/19/19 08:00 03/19/19 08:00 03/19/19 08:00 Oxygen Flow Rate (L/min) 100 Oxygen Delivery Method Mechanical Ventilator Weight: 269 lb 13.533 oz Body Mass Index (BMI) 43.1 Finger Stick Blood Glucose 279 Intake and Output for Last 24 Hours 03/17/19 03/18/19 03/19/19 23:59 23:59 23:59 Intake Total 152.3 / 152.3 184.5 / 184.5 Output Total 1100 / 1100 150 / 150 Balance -947.7 / -947.7 34.5 / 34.5 General: Alert, Cooperative, No apparent distress HEENT: Atraumatic, PERRLA, EOMI, Normocephalic Oral: Dry Mucosa Neck: Supple, No JVD, Negative Carotid Bruits Lungs: - - decreased breath sounds bibasally, coarse crackles in lower lung davalos bibasally. Intubated. No sedation Cardiovascular: Regular rate, Regular Rhythm, Normal S1, Normal S2, No murmurs Abdomen: Bowel Sounds Present, Soft, Non Tender, Non-Distended, No Hepato-splenomegaly Extremities: No clubbing, No cyanosis, Capillary Refill Less than 3 Seconds, - - mild 1+ bipedal pitting edema Skin: No rashes, No breakdown Musculoskeletal: No Tenderness to Palpation of Joints or Extremities Lymphatic: No Cervical, Supraclavicular, or Inguinal Adenopathy Neurological: Cranial nerves II-XII grossly intact, Neuro grossly intact, Motor Exam 5/5 strength throughout Psych/Mental Status: Normal Affect, Appropriate Microbiology Past 72 Hours 03/18/19 21:00 Urine Catheter - Catheter Streptococcus pneumoniae Antigen (M - Final 03/18/19 21:00 Urine Catheter - Catheter Legionella Antigen - Final Laboratory Results 03/18/19 17:55: WBC 18.2 H, RBC 4.70, Hgb 12.9, Hct 39.6, MCV 84.3, MCH 27.4, MCHC 32.6, RDW Std Deviation 42.2, RDW Coeff of Be 13.8, Plt Count 399, MPV 10.4, Immature Gran % (Auto) 0.500, Neut % (Auto) 78.7 H, Lymph % (Auto) 10.6 L, [place] % (Auto) 7.6, Eos % (Auto) 1.9, Baso % (Auto) 0.7, Absolute Neuts (auto) 14.3 H, Absolute Lymphs (auto) 1.93, Nucleated RBC % 0 03/18/19 17:55: Sodium 134 L, Potassium 4.4, Chloride 105, Carbon Dioxide 24.0, Anion Gap 5, BUN 21 H, Creatinine 1.38 H, Estim Creat Clear Calc 38.55, Est GFR (MDRD) Af Amer 49 L, Est GFR (MDRD) Non-Af 41 L, BUN/Creatinine Ratio 15.2, Glucose 364 H, Calcium 9.9, Troponin I < 0.015 03/18/19 17:55: B-Natriuretic Peptide 790.7 H 03/18/19 17:59: Specimen Type ART, Sample Site L Brachial, pH 7.28 L, Bicarbonate Actual 21.8 L, POC Total CO2 23, Base Excess -5 L, O2 Saturation 89 L, ABG pCO2 46.6 H, ABG pO2 64 L, O2 Delivery Device Nasal Can, Liter Flow 4.0, Blood Gas Notified Whom ED , Blood Gas Notified Time 8478 03/18/19 21:00: Troponin I 0.349 H 03/19/19 00:06: POC Glucose 315 H 03/19/19 00:15: Troponin I 0.553 H 03/19/19 01:45: Specimen Type ART, Sample Site R Brachial, pH 7.33 L, Bicarbonate Actual 24.6, POC Total CO2 26, Base Excess -1, O2 Saturation 100 H, O2 % 100, ABG pCO2 47.0 H, ABG pO2 340 H*, Reuben Test POS, Respiration Rate 14, O2 Delivery Device Vent, Minute Volume 8.00, Vent Mode A-C, Tidal Volume 450, POC PEEP 5, Blood Gas Notified Whom ICU MD, Blood Gas Notified Time 135 03/19/19 04:40: WBC 12.3 H, RBC 3.93 L, Hgb 10.6 L, Hct 32.8 L, MCV 83.5, MCH 27.0, MCHC 32.3, RDW Std Deviation 43.2, RDW Coeff of Be 14.2, Plt Count 355, MPV 10.9, Immature Gran % (Auto) 0.200, Neut % (Auto) 72.2 H, Lymph % (Auto) 15.4 L, [place] % (Auto) 10.5 H, Eos % (Auto) 1.2, Baso % (Auto) 0.5, Absolute Neuts (auto) 8.9 H, Absolute Lymphs (auto) 1.89, Nucleated RBC % 0 03/19/19 04:40: Sodium 139, Potassium 4.9, Chloride 106, Carbon Dioxide 24.0, Anion Gap 9, BUN 27 H, Creatinine 1.58 H, Estim Creat Clear Calc 33.67, Est GFR (MDRD) Af Amer 42 L, Est GFR (MDRD) Non-Af 35 L, BUN/Creatinine Ratio 17.1, Glucose 246 H, Calcium 8.6, Magnesium 2.1, Triglycerides 102, Cholesterol 113, LDL Cholesterol 40, VLDL Cholesterol 20, HDL Cholesterol 53 03/19/19 04:40: Troponin I 0.578 H 03/19/19 05:48: POC Glucose 241 H 03/19/19 08:25: Troponin I Pending 03/19/19 08:25: MRSA (PCR) Pending 03/19/19 08:25: Urine Color Yellow, Urine Clarity Clear, Urine pH 6.0, Ur Specific [place] 1.010, Urine Protein Negative, Urine Glucose (UA) Normal, Urine Ketones Negative, Urine Occult Blood 25 H, Urine Nitrite Negative, Urine Bilirubin Negative, Urine Urobilinogen Normal, Ur Leukocyte Esterase 500 H, Urine RBC 0-5 SEEN, Urine WBC 50-100 SEEN, Ur Squamous Epith Cells 0-5 SEEN, Ur Renal Epithelial Cell 0-5 SEEN, Urine Bacteria RARE, Hyaline Casts 0-5 SEEN, Urine Mucus 0 SEEN Current Medications Acetaminophen (Tylenol) 650 mg RECTAL Q4H PRN PRN PRN Reason: Mild Pain (1-3)/Temp > 100.7 F Albuterol Sulfate (Ventolin Aerosols) 2.5 mg INHALATION Q2H PRN PRN PRN Reason: SOB/Wheezing Albuterol/Ipratropium (Duoneb) 3 ml INHALATION Q4H.RT [facility] Last Admin: 03/19/19 06:33 Dose: 3 ml Documented by: Calamine/Phenol (Calmoseptine Ointment) 1 applic TOPICAL BID [facility]; Protocol Chlorhexidine Gluconate () 1 each TOPICAL DAILY [facility] Chlorhexidine Gluconate () 15 ml PO BID [facility] Last Admin: 03/18/19 22:30 Dose: 15 ml Documented by: Dextrose (D50w Syringe) 0 gm IV X1 PRN; Protocol PRN Reason: Hypoglycemia Enoxaparin Sodium (Lovenox) 40 mg SC DAILY@1000 [facility] Last Admin: 03/18/19 21:43 Dose: 40 mg Documented by: Famotidine (Pepcid) 20 mg GT BID [facility] Glucagon () 1 mg IM .X1 PRN PRN Reason: Hypoglycemia Propofol (Diprivan) 1,000 mg in 100 mls @ 11.061 mls/hr CONT INF .Q9H3M [facility] Last Admin: 03/19/19 05:26 Dose: 11.061 mls/hr Documented by: Fentanyl () 100 mls @ 5 mls/hr CONT INF .Q20H [facility] Last Admin: 03/19/19 05:19 Dose: 5 mls/hr Documented by: Bumetanide 25 mg/ (Miscellaneous Information) 100 mls @ 2 mls/hr CONT INF .Q50H [facility] Last Admin: 03/18/19 22:00 Dose: 2 mls/hr Documented by: Piperacillin Sod/Tazobactam (Sod 3.375 gm/ Sodium Chloride) 50 mls @ 12.5 mls/hr IV Q8 [facility] Last Admin: 03/19/19 05:26 Dose: 12.5 mls/hr Documented by: Sodium Chloride () 250 mls @ 15 mls/hr IV .[id number] PRN PRN Reason: SALINE FLUSH Insulin Human Lispro (Humalog Kwikpen (Bkc)) 0 unit SC Q6 [facility]; Protocol Last Admin: 03/19/19 05:50 Dose: 4 u Documented by: Nystatin (Mycostatin Powder) 1 applic TOPICAL BID [facility]; Protocol Promethazine HCl (Phenergan) 12.5 mg IV Q6H PRN PRN PRN Reason: Breakthrough Nausea/Vomiting Senna/Docusate Sodium (Senokot-S, Huma-Colace) 2 tablet PO BID PRN PRN PRN Reason: Constipation Sodium Chloride () 10 - 40 ml IV UD PRN PRN Reason: SALINE FLUSH Last Admin: 03/19/19 05:35 Dose: 10 ml Documented by: Medical Necessity - Tobacco Use Smoking Status: Never smoker Assessment/Plan All Active Problems (Last Reviewed 03/06/19 @ 06:45 by Jacques Santos MD) Acute respiratory failure with hypoxia (Acute) Flash pulmonary edema (Acute) Acute respiratory failure (Acute) NSTEMI (non-ST elevated myocardial infarction) (Resolved) Acute kidney injury (Acute) Hyponatremia (Acute) Noninfective enterocolitis (Acute) 1. Acute hypoxic respiratory failure due to acute on chronic HFpEF BNP was 790 no admission had NSTEMI ~ 1 week ago, and cardiac cath showed EF of 60%. with no significant stenosis echo(02/04); EF of 65% with diastolic dysfunction and no regional wall motion abnormality patient claims compliance with her lasix bumex drip discontinued this morning o/a of hypotension intubated; sedation weaned off this morning o/a of hypotension critical care on board 2. Acute on chronic HFpEF CXR showed pulmonary edema was on bumex drip. this was held o/a of hypotension this morning output was ~ 1.1L yesterday will resume diuresis once BP improves 2D echo: EF of 65% with diastolic dysfunction, no regional wall motion abnormality and normal RV size and systolic function. LA moderately enlarged. carvedilol held o/a of hypotension. 3. Leycocytosis: resolving. Wbc was 18 on admission, and is now down to 12. Possibly Reactive. No evidence of infection. Was started on IV Zosyn empirically. Will await culture results and discontinue as needed.. 4. Elevated troponins Initial troponin was less than 0.015 but trended up and peaked at 0.578 and is 0.417 today. Denies any chest pain. Could possibly be troponin leak on account of pulmonary edema and acute on chronic diastolic heart failure. BP was also markedly elevated on admission, and may have been the cause of elevated troponins also had recent NSTEMI but cardiac cath showed no significant coronary stenosis. 5. CKD 3: Cr is 1.58; baseline fluctuates from records. Bumex drip and hypotension could have cause slight upwards trend in Cr. WIll monitor 6. TYpe 2 diabetes mellitus accuchecks q6. ISS home insulin 25units daily on hold. 7.paroxysmal Afib: on carvedilol, but this is currently on hold due to ypotension 8. Hypothyroidism: On Synthroid. 9. History of Takotsubo cardiomyopathy: Stable 10. History of seizure disorder: 11. Chronic pain syndrome: on NOrco 12. GERD: on famotidine 13. Gout: on allopurinol' 13. Hypertension: Continue statin and carvedilol though these are currently on hold on account of hypotension. 14. Hyperlipidemia: On statin. DVT prophylaxis: Lovenox 30 mg daily. Code Visit Inpatient E&M: [id number] [facility] Hosp L3
[2019-03-19] MEDS: Menthol/Lanolin/Calamine/Znox 113 GM Tube 1 APPLIC TOPICAL ×2 (09:36→21:41)
[2019-03-19] MEDS: Nystatin Powder 15gm Bottle 1 APPLIC TOPICAL ×2 (09:37→21:42)
[2019-03-19] MEDS: Enoxaparin 40 MG/0.4 ML Syringe SC (09:38)
[2019-03-19] MEDS: CHLORHEXIDINE GLUC 2% CLOTH 1 EACH TOWELETTE TOPICAL (09:38)
[2019-03-19] MEDS: Famotidine 20 MG Tablet GT ×2 (09:38→21:46)
[2019-03-19] MEDS: Chlorhexidine 15 ML PO ×2 (09:38→21:47)
--- NOTE | 2019-03-19 09:46 | CASEMGMT ---
LW/CAM in echart. SW printed and placed in chart. POA is pt's sister, Linda Mike. [place] Brownlee
[2019-03-19] MEDS: Vital AF 1.2 Cal Liquid 1,000 ML 60 ML GT (09:48)
[2019-03-19 09:57] LABS: M R Staph aureus DNA By PCR Negative (Negative); Probe Check PASS; Specimen Processing Control PASS
[2019-03-19 13:16] LABS: Bedside Glucose 231 mg/dL (70-110)
--- NOTE | 2019-03-19 14:34 | CASEMGMT ---
ALMA CM Re-admission note: Pt admitted 03/06/19 for Acute Pulmonary Edema/CHF and discharged 03/09/19. Pt was discharged home per her wishes. [facility] offered for teaching/management of CHF but pt declined and stated did not feel she needed that. Pt re-admitted 03/18/19 w/Acute on Chronic CHF, Pulmonary edema. Pt is currently intubated. Discharge plan/needs unable to be determined at this time. CM to follow. Claribel CARDOZON RN CM
[2019-03-19 17:36] LABS: Bedside Glucose 221 mg/dL (70-110)
[2019-03-19 23:40] LABS: Bedside Glucose 274 mg/dL (70-110)
[2019-03-20] VITALS (33 sets, daily range): BP systolic 95–201; BP diastolic 40–96; PULSE 73–108; RESP 12–20; TEMP 37–38.1; O2SAT 91–98
[2019-03-20 04:22] LABS: Absolute Lymphocyte Count 1.56 X10^3/uL (0.83-4.51); Absolute Neutrophil Count 9.1 X10^3/uL (2.0-7.7); Basophil# 0.05 X10^3/uL; Basophil% 0.4 % (0-1); Eosinophil# 0.23 X10^3/uL; Eosinophils% 1.9 % (0-5); Hematocrit 29.9 % (37-47); Hemoglobin 9.7 g/dL (12.0-15.0); Lymphocyte # 1.56 X10^3/ul (4.0); Lymphocyte % 12.8 % (19-41); Mean Corp Hgb Conc 32.4 g/dL (32-36); Mean Corpuscular Hgb 27.7 pg (27.0-32.0); Mean Corpuscular Volume 85.4 fL (81-99); Mean Platelet Vol. 10.2 fl (6.2-12.0); Monocyte% 9.9 % (0-10); NRBC Flagged by Analyzer 0 % (0-5); Neutrophil # 9.07 X10^3/uL (2.7-7.7); Neutrophil % 74.6 % (47-70); Platelet Count 266 K/mm3 (150-450); RBC Distribution Width CV 14.1 % (11.6-14.6); RBC Distribution Width SD 43.6 fl (35.1-43.9); White Blood Count 12.2 K/mm3 (4.4-11.0)
[2019-03-20 04:50] LABS: Anion Gap 10 (5-15); BUN 36 mg/dL (7-18); BUN/Creat Ratio 21.6 RATIO (10-20); Calcium,Total 8.5 mg/dL (8.5-10.1); Chloride 107 mmol/L (98-107); Creatinine, Serum 1.67 mg/dL (0.55-1.02); EST Glomerular Filtration Rate 33 mL/min (>60); Est Glom Filt Rate - Afr Amer 40 mL/min (>60); Estimated Creatinine Clearance 31.86 ml/min; Glucose 296 mg/dL (74-106); Potassium 4.2 mmol/L (3.5-5.1); Sodium Level 142 mmol/L (136-145)
[2019-03-20] MEDS: Insulin Lispro 100 UNIT/ML INSULN.PEN SC ×4 (05:24→23:13)
[2019-03-20] MEDS: CHLORHEXIDINE GLUC 2% CLOTH 1 EACH TOWELETTE TOPICAL (05:25)
[2019-03-20 05:51] LABS: Bedside Glucose 309 mg/dL (70-110)
--- NOTE | 2019-03-20 06:36 | PCM.PN.INT ---
Subjective: The patient was seen and examined at the bedside this morning. Events from the last 24 hours have been reviewed. The patient currently has a low-grade fever but remains hemodynamically stable. T-max overnight was 100.5 ?F. FiO2 requirement is currently 40%. The patient is doing well this morning on her spontaneous breathing trial. No overnight events were noted by the nursing staff. No significant secretions were noted by respiratory therapy. The patient is alert, cooperative and following commands appropriately. Objective: The patient's most recent lab work, culture data and imaging studies have all been personally reviewed. Surface echocardiogram revealed normal LV size and thickness with an ejection fraction of 55% and stage II diastolic dysfunction. Strep and urine Legionella antigens were both negative. Blood, urine and sputum cultures are pending. General: Alert, Cooperative, No apparent distress, - - Remains intubated and mechanically ventilated. Currently tolerating CPAP mode of mechanical ventilation. HEENT: Atraumatic, PERRLA, Normocephalic Oral: No Gingival or Mucosal Lesions/ Ulcerations, - - Endotracheal and OG tubes remain in place. Neck: Supple, No Nodes, Trachea Midline Lungs: No rhonchi, No wheeze, No rales, Diminished Cardiovascular: Regular rate, Regular Rhythm, Normal S1, Normal S2 Abdomen: Bowel Sounds Present, Soft, Non Tender, Obese Extremities: No clubbing, No cyanosis, Edema - b/l pedal Skin: No breakdown Musculoskeletal: No Muscle Wasting Lymphatic: No Cervical, Supraclavicular, or Inguinal Adenopathy Neurological: - - The patient is alert, cooperative and following commands appropriately. No focal neurological deficits. Vital Signs Temp Pulse Resp BP Pulse Ox 99.7 F H 81 16 111/52 L 98 03/20/19 06:00 03/20/19 06:00 03/20/19 06:00 03/20/19 06:00 03/20/19 06:00 Oxygen Flow Rate (L/min) 100 Oxygen Delivery Method Mechanical Ventilator Weight: 269 lb 6.478 oz Body Mass Index (BMI) 43.1 Finger Stick Blood Glucose 279 Intake and Output for Last 24 Hours 03/18/19 03/19/19 03/20/19 23:59 23:59 23:59 Intake Total 152.3 / 152.3 1790.5 / 1790.5 654.7 / 654.7 Output Total 1100 / 1100 925 / 925 400 / 400 Balance -947.7 / -947.7 865.5 / 865.5 254.7 / 254.7 Labs (Last 48 Hours) 03/18/19 03/18/19 03/18/19 17:55 17:55 17:55 WBC 18.2 H RBC 4.70 Hgb 12.9 Hct 39.6 MCV 84.3 MCH 27.4 MCHC 32.6 RDW Std Deviation 42.2 RDW Coeff of Be 13.8 Plt Count 399 MPV 10.4 Immature Gran % (Auto) 0.500 Neut % (Auto) 78.7 H Lymph % (Auto) 10.6 L [place] % (Auto) 7.6 Eos % (Auto) 1.9 Baso % (Auto) 0.7 Absolute Neuts (auto) 14.3 H Absolute Lymphs (auto) 1.93 Nucleated RBC % 0 Specimen Type Sample Site pH Bicarbonate Actual POC Total CO2 Base Excess O2 Saturation O2 % ABG pCO2 ABG pO2 Reuben Test Respiration Rate O2 Delivery Device Liter Flow Minute Volume Vent Mode Tidal Volume POC PEEP Blood Gas Notified Whom Blood Gas Notified Time Sodium 134 L Potassium 4.4 Chloride 105 Carbon Dioxide 24.0 Anion Gap 5 BUN 21 H Creatinine 1.38 H Estim Creat Clear Calc 38.55 Est GFR (MDRD) Af Amer 49 L Est GFR (MDRD) Non-Af 41 L BUN/Creatinine Ratio 15.2 Glucose 364 H Calcium 9.9 Magnesium Troponin I < 0.015 B-Natriuretic Peptide 790.7 H Triglycerides Cholesterol LDL Cholesterol VLDL Cholesterol HDL Cholesterol Urine Color Urine Clarity Urine pH Ur Specific [place] Urine Protein Urine Glucose (UA) Urine Ketones Urine Occult Blood Urine Nitrite Urine Bilirubin Urine Urobilinogen Ur Leukocyte Esterase Urine RBC Urine WBC Ur Squamous Epith Cells Ur Renal Epithelial Cell Urine Bacteria Hyaline Casts Urine Mucus MRSA (PCR) POC Glucose 03/18/19 03/18/19 03/19/19 17:59 21:00 00:06 WBC RBC Hgb Hct MCV MCH MCHC RDW Std Deviation RDW Coeff of Be Plt Count MPV Immature Gran % (Auto) Neut % (Auto) Lymph % (Auto) [place] % (Auto) Eos % (Auto) Baso % (Auto) Absolute Neuts (auto) Absolute Lymphs (auto) Nucleated RBC % Specimen Type ART Sample Site L Brachial pH 7.28 L Bicarbonate Actual 21.8 L POC Total CO2 23 Base Excess -5 L O2 Saturation 89 L O2 % ABG pCO2 46.6 H ABG pO2 64 L Reuben Test Respiration Rate O2 Delivery Device Nasal Can Liter Flow 4.0 Minute Volume Vent Mode Tidal Volume POC PEEP Blood Gas Notified Whom ED Blood Gas Notified Time 1755 Sodium Potassium Chloride Carbon Dioxide Anion Gap BUN Creatinine Estim Creat Clear Calc Est GFR (MDRD) Af Amer Est GFR (MDRD) Non-Af BUN/Creatinine Ratio Glucose Calcium Magnesium Troponin I 0.349 H B-Natriuretic Peptide Triglycerides Cholesterol LDL Cholesterol VLDL Cholesterol HDL Cholesterol Urine Color Urine Clarity Urine pH Ur Specific [place] Urine Protein Urine Glucose (UA) Urine Ketones Urine Occult Blood Urine Nitrite Urine Bilirubin Urine Urobilinogen Ur Leukocyte Esterase Urine RBC Urine WBC Ur Squamous Epith Cells Ur Renal Epithelial Cell Urine Bacteria Hyaline Casts Urine Mucus MRSA (PCR) POC Glucose 315 H 03/19/19 03/19/19 03/19/19 00:15 01:45 04:40 WBC 12.3 H RBC 3.93 L Hgb 10.6 L Hct 32.8 L MCV 83.5 MCH 27.0 MCHC 32.3 RDW Std Deviation 43.2 RDW Coeff of Be 14.2 Plt Count 355 MPV 10.9 Immature Gran % (Auto) 0.200 Neut % (Auto) 72.2 H Lymph % (Auto) 15.4 L [place] % (Auto) 10.5 H Eos % (Auto) 1.2 Baso % (Auto) 0.5 Absolute Neuts (auto) 8.9 H Absolute Lymphs (auto) 1.89 Nucleated RBC % 0 Specimen Type ART Sample Site R Brachial pH 7.33 L Bicarbonate Actual 24.6 POC Total CO2 26 Base Excess -1 O2 Saturation 100 H O2 % 100 ABG pCO2 47.0 H ABG pO2 340 H* Reuben Test POS Respiration Rate 14 O2 Delivery Device Vent Liter Flow Minute Volume 8.00 Vent Mode A-C Tidal Volume 450 POC PEEP 5 Blood Gas Notified Whom ICU Blood Gas Notified Time 135 Sodium Potassium Chloride Carbon Dioxide Anion Gap BUN Creatinine Estim Creat Clear Calc Est GFR (MDRD) Af Amer Est GFR (MDRD) Non-Af BUN/Creatinine Ratio Glucose Calcium Magnesium Troponin I 0.553 H B-Natriuretic Peptide Triglycerides Cholesterol LDL Cholesterol VLDL Cholesterol HDL Cholesterol Urine Color Urine Clarity Urine pH Ur Specific [place] Urine Protein Urine Glucose (UA) Urine Ketones Urine Occult Blood Urine Nitrite Urine Bilirubin Urine Urobilinogen Ur Leukocyte Esterase Urine RBC Urine WBC Ur Squamous Epith Cells Ur Renal Epithelial Cell Urine Bacteria Hyaline Casts Urine Mucus MRSA (PCR) POC Glucose 03/19/19 03/19/19 03/19/19 04:40 04:40 05:48 WBC RBC Hgb Hct MCV MCH MCHC RDW Std Deviation RDW Coeff of Be Plt Count MPV Immature Gran % (Auto) Neut % (Auto) Lymph % (Auto) [place] % (Auto) Eos % (Auto) Baso % (Auto) Absolute Neuts (auto) Absolute Lymphs (auto) Nucleated RBC % Specimen Type Sample Site pH Bicarbonate Actual POC Total CO2 Base Excess O2 Saturation O2 % ABG pCO2 ABG pO2 Reuben Test Respiration Rate O2 Delivery Device Liter Flow Minute Volume Vent Mode Tidal Volume POC PEEP Blood Gas Notified Whom Blood Gas Notified Time Sodium 139 Potassium 4.9 Chloride 106 Carbon Dioxide 24.0 Anion Gap 9 BUN 27 H Creatinine 1.58 H Estim Creat Clear Calc 33.67 Est GFR (MDRD) Af Amer 42 L Est GFR (MDRD) Non-Af 35 L BUN/Creatinine Ratio 17.1 Glucose 246 H Calcium 8.6 Magnesium 2.1 Troponin I 0.578 H B-Natriuretic Peptide Triglycerides 102 Cholesterol 113 LDL Cholesterol 40 VLDL Cholesterol 20 HDL Cholesterol 53 Urine Color Urine Clarity Urine pH Ur Specific [place] Urine Protein Urine Glucose (UA) Urine Ketones Urine Occult Blood Urine Nitrite Urine Bilirubin Urine Urobilinogen Ur Leukocyte Esterase Urine RBC Urine WBC Ur Squamous Epith Cells Ur Renal Epithelial Cell Urine Bacteria Hyaline Casts Urine Mucus MRSA (PCR) POC Glucose 241 H 03/19/19 03/19/19 03/19/19 08:25 08:25 08:25 WBC RBC Hgb Hct MCV MCH MCHC RDW Std Deviation RDW Coeff of Be Plt Count MPV Immature Gran % (Auto) Neut % (Auto) Lymph % (Auto) [place] % (Auto) Eos % (Auto) Baso % (Auto) Absolute Neuts (auto) Absolute Lymphs (auto) Nucleated RBC % Specimen Type Sample Site pH Bicarbonate Actual POC Total CO2 Base Excess O2 Saturation O2 % ABG pCO2 ABG pO2 Reuben Test Respiration Rate O2 Delivery Device Liter Flow Minute Volume Vent Mode Tidal Volume POC PEEP Blood Gas Notified Whom Blood Gas Notified Time Sodium Potassium Chloride Carbon Dioxide Anion Gap BUN Creatinine Estim Creat Clear Calc Est GFR (MDRD) Af Amer Est GFR (MDRD) Non-Af BUN/Creatinine Ratio Glucose Calcium Magnesium Troponin I 0.417 H B-Natriuretic Peptide Triglycerides Cholesterol LDL Cholesterol VLDL Cholesterol HDL Cholesterol Urine Color Yellow Urine Clarity Clear Urine pH 6.0 Ur Specific [place] 1.010 Urine Protein Negative Urine Glucose (UA) Normal Urine Ketones Negative Urine Occult Blood 25 H Urine Nitrite Negative Urine Bilirubin Negative Urine Urobilinogen Normal Ur Leukocyte Esterase 500 H Urine RBC 0-5 SEEN Urine WBC 50-100 SEEN Ur Squamous Epith Cells 0-5 SEEN Ur Renal Epithelial Cell 0-5 SEEN Urine Bacteria RARE Hyaline Casts 0-5 SEEN Urine Mucus 0 SEEN MRSA (PCR) Negative POC Glucose 03/19/19 03/19/19 03/19/19 13:07 17:23 23:31 WBC RBC Hgb Hct MCV MCH MCHC RDW Std Deviation RDW Coeff of Be Plt Count MPV Immature Gran % (Auto) Neut % (Auto) Lymph % (Auto) [place] % (Auto) Eos % (Auto) Baso % (Auto) Absolute Neuts (auto) Absolute Lymphs (auto) Nucleated RBC % Specimen Type Sample Site pH Bicarbonate Actual POC Total CO2 Base Excess O2 Saturation O2 % ABG pCO2 ABG pO2 Reuben Test Respiration Rate O2 Delivery Device Liter Flow Minute Volume Vent Mode Tidal Volume POC PEEP Blood Gas Notified Whom Blood Gas Notified Time Sodium Potassium Chloride Carbon Dioxide Anion Gap BUN Creatinine Estim Creat Clear Calc Est GFR (MDRD) Af Amer Est GFR (MDRD) Non-Af BUN/Creatinine Ratio Glucose Calcium Magnesium Troponin I B-Natriuretic Peptide Triglycerides Cholesterol LDL Cholesterol VLDL Cholesterol HDL Cholesterol Urine Color Urine Clarity Urine pH Ur Specific [place] Urine Protein Urine Glucose (UA) Urine Ketones Urine Occult Blood Urine Nitrite Urine Bilirubin Urine Urobilinogen Ur Leukocyte Esterase Urine RBC Urine WBC Ur Squamous Epith Cells Ur Renal Epithelial Cell Urine Bacteria Hyaline Casts Urine Mucus MRSA (PCR) POC Glucose 231 H 221 H 274 H 03/20/19 03/20/19 03/20/19 04:10 04:10 05:22 WBC 12.2 H RBC 3.50 L Hgb 9.7 L Hct 29.9 L MCV 85.4 MCH 27.7 MCHC 32.4 RDW Std Deviation 43.6 RDW Coeff of Be 14.1 Plt Count 266 MPV 10.2 Immature Gran % (Auto) 0.400 Neut % (Auto) 74.6 H Lymph % (Auto) 12.8 L [place] % (Auto) 9.9 Eos % (Auto) 1.9 Baso % (Auto) 0.4 Absolute Neuts (auto) 9.1 H Absolute Lymphs (auto) 1.56 Nucleated RBC % 0 Specimen Type Sample Site pH Bicarbonate Actual POC Total CO2 Base Excess O2 Saturation O2 % ABG pCO2 ABG pO2 Reuben Test Respiration Rate O2 Delivery Device Liter Flow Minute Volume Vent Mode Tidal Volume POC PEEP Blood Gas Notified Whom Blood Gas Notified Time Sodium 142 Potassium 4.2 Chloride 107 Carbon Dioxide 25.0 Anion Gap 10 BUN 36 H Creatinine 1.67 H Estim Creat Clear Calc 31.86 Est GFR (MDRD) Af Amer 40 L Est GFR (MDRD) Non-Af 33 L BUN/Creatinine Ratio 21.6 H Glucose 296 H Calcium 8.5 Magnesium Troponin I B-Natriuretic Peptide Triglycerides Cholesterol LDL Cholesterol VLDL Cholesterol HDL Cholesterol Urine Color Urine Clarity Urine pH Ur Specific [place] Urine Protein Urine Glucose (UA) Urine Ketones Urine Occult Blood Urine Nitrite Urine Bilirubin Urine Urobilinogen Ur Leukocyte Esterase Urine RBC Urine WBC Ur Squamous Epith Cells Ur Renal Epithelial Cell Urine Bacteria Hyaline Casts Urine Mucus MRSA (PCR) POC Glucose 309 H Microbiology 03/19/19 11:20 Sputum, Induced/Lukens Gram Stain - Final 03/18/19 21:00 Urine Catheter - Catheter Streptococcus pneumoniae Antigen (M - Final 03/18/19 21:00 Urine Catheter - Catheter Legionella Antigen - Final Clinical Impression(s) from Imaging Studies Chest X-Ray 03/18/19 17:34 IMPRESSION: Mild edema as above Electronically Signed: Chung Martinez MD at 17:50 EDT , Service support , Chest X-Ray 03/18/19 19:28 IMPRESSION: Moderate edema increased. New enteric and ET tubes as above. Recommend withdrawing the ET tube from the right mainstem bronchus 4 cm. Electronically Signed: Chung Martinez MD at 20:10 EDT , Service support , ADDENDUM: 03/18/192024 IMPRESSION: Moderate edema increased. New enteric and ET tubes as above. Recommend withdrawing the ET tube from the right mainstem bronchus 4 cm. N.B. : The above information has been verbally conveyed by Chung Martinez MD to Dr. Chris MD, on 03/18/2019 20:18:28 (ET). Electronically Signed: Chung Martinez MD at 20:10 EDT , Service support , Chest X-Ray 03/18/19 19:58 IMPRESSION: ET tube now 16 mm above the melisa. Moderate interstitial edema and right lower lobe airspace disease unchanged. Electronically Signed: Chung Martinez MD at 20:18 EDT , Service support , Chest X-Ray 03/19/19 07:55 IMPRESSION: The tip of the endotracheal tube is at the origin of the right mainstem bronchus. Progressive CHF with atelectasis and/or infiltrate at both lung bases worse on the left side. Blunting of the left costophrenic angle. Electronically Signed: Tristan De La Garza, at 12:49 EDT , Service support , Medical Necessity - Tobacco Use Smoking Status: Never smoker Assessment/Plan All Active Problems (Last Reviewed 03/06/19 @ 06:45 by Jacques Santos MD) Acute respiratory failure with hypoxia (Acute) Flash pulmonary edema (Acute) Acute respiratory failure (Acute) NSTEMI (non-ST elevated myocardial infarction) (Resolved) Acute kidney injury (Acute) Hyponatremia (Acute) Noninfective enterocolitis (Acute) RECOMMENDATIONS: 1. Proceed with a trial of extubation this morning. 2. Once extubated, wean supplemental oxygen to maintain saturations at or above 90%. 3. Encourage incentive spirometer use and mobilize patient as tolerated. 4. Perform bedside swallow evaluation and advance diet accordingly. 5. Continue antibiotics for now, pending finalized infectious work-up. 6. Continue appropriate DVT prophylaxis 7. Remove Robb catheter. IMPRESSIONS: 1. Acute combined respiratory failure Initially felt to be secondary to decompensated heart failure/flash pulmonary edema in the setting of uncontrolled hypertension noted on admission. However, there was some concern for a potential underlying pulmonary infectious process as well. The patient improved with invasive mechanical ventilatory support and was able to be extubated on the morning of March 20. We will plan to wean supplemental oxygen to maintain saturations at or above 90%. Bedside swallow evaluation can be completed and diet advanced accordingly. Encourage incentive spirometer use and mobilize patient as tolerated. 2. Leukocytosis/low-grade fevers The patient did present to the emergency department with elevated blood pressures, but was noted to be tachycardic and tachypneic in the setting of an elevated white blood cell count. Therefore, broad-spectrum antibiotics were initiated to cover for potential infectious process. The patient's leukocytosis is improving. Cultures are still pending. We will plan to continue antibiotics, pending finalized culture results. 3. Acute on chronic heart failure with preserved ejection fraction/troponin elevation/T wave inversions Troponins eventually plateaued. Echocardiogram did not reveal any significant interval changes. The patient will initially need to be placed back on her home antihypertensive and diuretics regimen, however, would continue to hold those medications for now pending improvement in the patient's hemodynamic status and renal function. 4. Acute on chronic kidney disease Likely secondary to derangements and hemodynamic status along with concurrent diuretic utilization. The patient has remained hemodynamically stable. We will continue to monitor urine output. No indication for renal replacement therapy at this time. 5. Diabetes mellitus/hypertension/morbid obesity Complicates care, management, recovery and prognosis. Restart basal insulin regimen once diet has been advanced. Physical therapy to evaluate the patient today. TIME: 35 minutes of critical care time, independent of procedures, was spent addressing the patient's acute combined respiratory failure, severe sepsis, acute on chronic heart failure preserved ejection fraction, troponin elevation, review of all data and collaboration with the care team. ([id number]) Code Visit 9xxxx: [id number] Critical care first hour
--- NOTE | 2019-03-20 06:40 | NURSING ---
Pt. extubated by respiratory therapy to 2L NC. Pt. tolerated well.
--- NOTE | 2019-03-20 08:59 | PN_ITS ---
Subjective: Patient seen and examined. She was extubated this morning and is on 2 L of oxygen. She has no complaints and denies any fever chills, palpitations or dizziness, chest pain, diarrhea or vomiting. She had a low-grade fever with temperature peaking at 100.5 Fahrenheit overnight. Review of systems otherwise negative. Labs and vitals reviewed. Vitals/I&O's: Vital Signs Temp Pulse Resp BP Pulse Ox 99.7 F H 58 L 16 111/52 L 98 03/20/19 06:00 03/20/19 08:00 03/20/19 06:00 03/20/19 06:00 03/20/19 06:00 Oxygen Flow Rate (L/min) 2 Oxygen Delivery Method Nasal Cannula Weight: 269 lb 6.478 oz Body Mass Index (BMI) 43.1 Finger Stick Blood Glucose 279 Intake and Output for Last 24 Hours 03/18/19 03/19/19 03/20/19 23:59 23:59 23:59 Intake Total 152.3 / 152.3 1790.5 / 1790.5 654.7 / 654.7 Output Total 1100 / 1100 925 / 925 400 / 400 Balance -947.7 / -947.7 865.5 / 865.5 254.7 / 254.7 General: Alert, Cooperative, No apparent distress HEENT: Atraumatic, PERRLA, EOMI, Normocephalic Oral: Dry Mucosa Neck: Supple, No JVD, Negative Carotid Bruits Lungs: - - decreased breath sounds bibasally,few coarse crackles bibasally. on 2L of oxygen by nasal canula Cardiovascular: Regular rate, Regular Rhythm, Normal S1, Normal S2, No murmurs Abdomen: Bowel Sounds Present, Soft, Non Tender, Non-Distended, No Hepato- splenomegaly Extremities: No clubbing, No cyanosis, Capillary Refill Less than 3 Seconds, - - mild 1+ bipedal pitting edema Skin: No rashes, No breakdown Musculoskeletal: No Tenderness to Palpation of Joints or Extremities Lymphatic: No Cervical, Supraclavicular, or Inguinal Adenopathy Neurological: Cranial nerves II-XII grossly intact, Neuro grossly intact, Motor Exam 5/5 strength throughout Psych/Mental Status: Normal Affect, Appropriate Microbiology Past 72 Hours 03/19/19 11:20 Sputum, Induced/Lukens Gram Stain - Final 03/18/19 21:00 Urine Catheter - Catheter Streptococcus pneumoniae Antigen (M - Final 03/18/19 21:00 Urine Catheter - Catheter Legionella Antigen - Final Laboratory Results 03/19/19 08:25: Troponin I 0.417 H 03/19/19 08:25: MRSA (PCR) Negative 03/19/19 13:07: POC Glucose 231 H 03/19/19 17:23: POC Glucose 221 H 03/19/19 23:31: POC Glucose 274 H 03/20/19 04:10: WBC 12.2 H, RBC 3.50 L, Hgb 9.7 L, Hct 29.9 L, MCV 85.4, MCH 27.7, MCHC 32.4, RDW Std Deviation 43.6, RDW Coeff of Be 14.1, Plt Count 266, M PV 10.2, Immature Gran % (Auto) 0.400, Neut % (Auto) 74.6 H, Lymph % (Auto) 12.8 L, [place] % (Auto) 9.9, Eos % (Auto) 1.9, Baso % (Auto) 0.4, Absolute Neuts (auto) 9.1 H, Absolute Lymphs (auto) 1.56, Nucleated RBC % 0 03/20/19 04:10: Sodium 142, Potassium 4.2, Chloride 107, Carbon Dioxide 25.0, Anion Gap 10, BUN 36 H, Creatinine 1.67 H, Estim Creat Clear Calc 31.86, Est GFR (MDRD) Af Amer 40 L, Est GFR (MDRD) Non-Af 33 L, BUN/Creatinine Ratio 21.6 H, Glucose 296 H, Calcium 8.5 03/20/19 05:22: POC Glucose 309 H Diagnostic Data Chest X-Ray 03/19/19 07:55 IMPRESSION: The tip of the endotracheal tube is at the origin of the right mainstem bronchus. Progressive CHF with atelectasis and/or infiltrate at both lung bases worse on the left side. Blunting of the left costophrenic angle. Electronically Signed: Tristan De La Garza, at 12:49 EDT , Service support , Current Medications Acetaminophen (Tylenol) 650 mg RECTAL Q4H PRN PRN PRN Reason: Mild Pain (1-3)/Temp > 100.7 F Albuterol Sulfate (Ventolin Aerosols) 2.5 mg INHALATION Q2H PRN PRN PRN Reason: SOB/Wheezing Calamine/Phenol (Calmoseptine Ointment) 1 applic TOPICAL BID [facility]; Protocol Last Admin: 03/19/19 21:41 Dose: 1 applic Documented by: Chlorhexidine Gluconate () 1 each TOPICAL DAILY [facility] Last Admin: 03/20/19 05:25 Dose: 1 each Documented by: Chlorhexidine Gluconate () 15 ml PO BID [facility] Last Admin: 03/19/19 21:47 Dose: 15 ml Documented by: Dextrose (D50w Syringe) 0 gm IV X1 PRN; Protocol PRN Reason: Hypoglycemia Enoxaparin Sodium (Lovenox) 40 mg SC DAILY@1000 [facility] Last Admin: 03/19/19 09:38 Dose: 40 mg Documented by: Glucagon () 1 mg IM .X1 PRN PRN Reason: Hypoglycemia Piperacillin Sod/Tazobactam (Sod 3.375 gm/ Sodium Chloride) 50 mls @ 12.5 mls/hr IV Q8 [facility] Last Admin: 03/20/19 05:23 Dose: 12.5 mls/hr Documented by: Sodium Chloride () 250 mls @ 15 mls/hr IV .[id number] PRN PRN Reason: SALINE FLUSH Insulin Human Lispro (Humalog Kwikpen (Bkc)) 0 unit SC Q6 [facility]; Protocol Last Admin: 03/20/19 05:24 Dose: 6 u Documented by: Nystatin (Mycostatin Powder) 1 applic TOPICAL BID [facility]; Protocol Last Admin: 03/19/19 21:42 Dose: 1 applic Documented by: Promethazine HCl (Phenergan) 12.5 mg IV Q6H PRN PRN PRN Reason: Breakthrough Nausea/Vomiting Senna/Docusate Sodium (Senokot-S, Huma-Colace) 2 tablet PO BID PRN PRN PRN Reason: Constipation Sodium Chloride () 10 - 40 ml IV UD PRN PRN Reason: SALINE FLUSH Last Admin: 03/19/19 05:35 Dose: 10 ml Documented by: Medical Necessity - Tobacco Use Smoking Status: Never smoker Assessment/Plan All Active Problems (Last Reviewed 03/06/19 @ 06:45 by Jacques Santos MD) Acute respiratory failure with hypoxia (Acute) Flash pulmonary edema (Acute) Acute respiratory failure (Acute) NSTEMI (non-ST elevated myocardial infarction) (Resolved) Acute kidney injury (Acute) Hyponatremia (Acute) Noninfective enterocolitis (Acute) 1. Acute hypoxic respiratory failure due to acute on chronic HFpEF * successfully extubated today, on 2L of oxygen bu nasal canula * BP has improved today, BP meds and bumex still on hold due to hypotension * critical care on board * goal is to wean off oxygen to maintain sats>90% * 2. Acute on chronic HFpEF * CXR showed pulmonary edema * still off bumex o/a of hypotension. * carvedilol also held o/a o hypotension * 2D echo: EF of 65% with diastolic dysfunction, no regional wall motion abnormality and normal RV size and systolic function. LA moderately enlarged. 3. Leycocytosis: * resolving. Wbc was 18 on admission, and has trended down to 12 * had low grade fever, peaking at 100.5F overnight * on IV zosyn empirically. * blood and urine cultures pending. Sputum gram stain showed 2+ wbcs and no organisms seen, and urine for strep and legionella antigens negative. * 4. Elevated troponins * likely due to acute on chronic heart failure; may also have been due to troponin leak from elevated BP * asymptomatic and EKG showed no acute ST changes * will monitor * 5. CKD 3: * Cr is 1.67 today; may have trended upwards as a result of bumex drip and hypotension. * will monitor * * 6. TYpe 2 diabetes mellitus * accuchecks q6. ISS * home insulin 25units daily on hold. * will resume today once she starts on diet * 7.paroxysmal Afib: on carvedilol, but this is currently on hold due to ypotension 8. Hypothyroidism: On Synthroid. 9. History of Takotsubo cardiomyopathy: Stable 10. History of seizure disorder: 11. Chronic pain syndrome: on NOrco 12. GERD: on famotidine 13. Gout: on allopurinol' 13. Hypertension: carvedilol on hold o/a of hypotension. 14. Hyperlipidemia: On statin. DVT prophylaxis: Lovenox 30 mg daily. Code Visit Inpatient E&M: 42594 Subs Hosp L3
--- NOTE | 2019-03-20 09:30 | CASEMGMT ---
RN CM Note. Intro role of CM to patient in room after ICU rounds. Discussed PT/OT will be evaluating pt and CM will discuss recommendations with pt including possible SNF referral or Home with [facility]. Pt is agreeable to [facility] if she returns home. AJ Thurman updated that pt may benefit from SNF, but awaiting PT/OT evaluations. Suellen CARDOZON RN AC
[2019-03-20] MEDS: Menthol/Lanolin/Calamine/Znox 113 GM Tube 1 APPLIC TOPICAL ×2 (10:27→21:05)
[2019-03-20] MEDS: Enoxaparin 40 MG/0.4 ML Syringe SC (10:27)
[2019-03-20] MEDS: Nystatin Powder 15gm Bottle 1 APPLIC TOPICAL ×2 (10:28→21:05)
[2019-03-20 12:06] LABS: Bedside Glucose 246 mg/dL (70-110)
[2019-03-20] MEDS: 0.9% NaCl Peripheral Flush Adult/Peds IV ×3 (13:41→22:26)
--- NOTE | 2019-03-20 15:17 | CASEMGMT ---
SW spoke w/pt in room about going somewhere for rehab if needed. Pt having difficulty speaking at present. SW did leave a list of nursing homes in her room with her, and let her know that SW will follow up w/her on Saturday. SW notified RN of pt's difficulty speaking, she is going to notify the physician. ARGENTINA Brownlee
--- NOTE | 2019-03-20 15:40 | CT_ITS ---
STUDY: CT BRAIN WITHOUT CONTRAST REASON FOR EXAM: Female, 63 years old. Expressive aphasia, history of stroke RADIATION DOSAGE (If Supplied By Facility): CTDIvol = ( 44.99 ) mGy, DLP = ( 796.11 ) mGycm TECHNIQUE: Transaxial CT imaging of the brain was performed without administration of intravenous contrast material. Individualized dose optimization techniques were used for this CT. COMPARISON: Prior study of 02/25/2017 FINDINGS: Normal soft tissue structures. Normal calvarium. Normal size ventricles and extra-axial spaces for the patient's age. Normal white matter tracts of the cerebral hemispheres. Normal basal ganglia and thalami. Normal brainstem. Normal cerebellum. There is no intracranial hemorrhage. There are no findings of an acute ischemic infarction. There is mild mucosal thickening of the left maxillary and sphenoid sinuses. CT/Brain/Head without Contrast IMPRESSION: Mild chronic sinusitis of the left maxillary and sphenoid sinuses. There is no evidence of intracranial hemorrhage or acute infarct. Findings are similar to the previous study. Electronically Signed: Gareth Gamble MD at 16:33 EDT , Service support ,
--- NOTE | 2019-03-20 16:44 | MRI_ITS ---
STUDY: MRI BRAIN WITHOUT CONTRAST REASON FOR EXAM: Female, 63 years old. aphasia TECHNIQUE: Standardized multiplanar fat and water weighted pulse sequences were obtained. Motion limited exam. COMPARISON: CT brain March 20, 2019 and MR brain May 13, 2012 FINDINGS: Normal size of the ventricles and extra-axial spaces for the patient's age. There are a limited number of small white matter hyperintensities, distributed throughout the deep white matter tracts of the cerebral hemispheres, consistent with mild chronic white matter ischemic changes. Normal bilateral basal ganglia. Normal thalami. There is no extra-axial fluid accumulation. Normal flow voids within the major intracranial circulation suggesting patency by spin echo criteria. There is enlargement of the sella turcica with increased CSF within the sella and flattening of the pituitary gland consistent with an empty sellar syndrome. Normal infundibular stalk, hypothalamus, and optic chiasm. Normal tectal plate and pineal gland. Normal midbrain, alfredito and medulla. Normal cerebellum. Normal basal cisterns. Normal bilateral temporal bones. Normal bilateral internal auditory canals. No demonstrated orbital abnormality, within the constraints of a routine brain study. Air-fluid level left maxillary sinus and sphenoid sinus. Normal calvarium and skull base. Normal visualized soft tissue structures. Normal visualized upper cervical spine. MRI/Brain without Contrast IMPRESSION: Sinusitis. Empty sella. No acute disease. Electronically Signed: Chung Martinez MD at 21:33 EDT , Service support ,
--- NOTE | 2019-03-20 18:00 | NURSING ---
Pt does not always follow commands. But then will plainly state name when asked. Or answers yes/no questions appropriately. Would not follow all directions for perform full NIHSS.
[2019-03-20 18:46] LABS: Bedside Glucose 226 mg/dL (70-110)
[2019-03-20] MEDS: proMETHazine 25 MG/ML Syringe 12.5 MG IV (19:43)
--- NOTE | 2019-03-20 19:45 | NURSING ---
Pt. off unit for MRI accompanied by RN.
--- NOTE | 2019-03-20 20:55 | NURSING ---
Pt. back from MRI
[2019-03-20] MEDS: Furosemide 40 MG/4 ML Vial IV (22:26)
[2019-03-20] MEDS: hydrALAZINE 25 MG Tablet PO (23:05)
[2019-03-20 23:20] LABS: Bedside Glucose 231 mg/dL (70-110)
[2019-03-21] VITALS (21 sets, daily range): BP systolic 130–172; BP diastolic 51–106; PULSE 74–94; RESP 14–20; TEMP 36.6–37.2; O2SAT 92–98
[2019-03-21 04:21] LABS: Absolute Lymphocyte Count 1.94 X10^3/uL (0.83-4.51); Absolute Neutrophil Count 8.8 X10^3/uL (2.0-7.7); Basophil# 0.08 X10^3/uL; Basophil% 0.6 % (0-1); Eosinophils% 3.2 % (0-5); Hemoglobin 11.6 g/dL (12.0-15.0); Lymphocyte # 1.94 X10^3/ul (4.0); Lymphocyte % 15.6 % (19-41); Mean Corp Hgb Conc 33.1 g/dL (32-36); Mean Corpuscular Hgb 27.4 pg (27.0-32.0); Mean Corpuscular Volume 82.7 fL (81-99); Mean Platelet Vol. 9.7 fl (6.2-12.0); Monocyte# 1.11 X10^3/uL; Monocyte% 8.9 % (0-10); NRBC Flagged by Analyzer 0 % (0-5); Neutrophil # 8.84 X10^3/uL (2.7-7.7); Neutrophil % 71.4 % (47-70); Platelet Count 350 K/mm3 (150-450); RBC Distribution Width CV 13.6 % (11.6-14.6); RBC Distribution Width SD 40.6 fl (35.1-43.9); Red Blood Count 4.23 M/mm3 (4.2-5.4); White Blood Count 12.4 K/mm3 (4.4-11.0)
[2019-03-21 04:36] LABS: Anion Gap 8 (5-15); BUN 22 mg/dL (7-18); BUN/Creat Ratio 18.5 RATIO (10-20); Calcium,Total 9.6 mg/dL (8.5-10.1); Chloride 104 mmol/L (98-107); Creatinine, Serum 1.19 mg/dL (0.55-1.02); EST Glomerular Filtration Rate 49 mL/min (>60); Est Glom Filt Rate - Afr Amer 59 mL/min (>60); Estimated Creatinine Clearance 44.71 ml/min; Glucose 240 mg/dL (74-106); Potassium 3.7 mmol/L (3.5-5.1); Sodium Level 140 mmol/L (136-145)
[2019-03-21] MEDS: hydrALAZINE 25 MG Tablet PO ×3 (05:38→22:30)
[2019-03-21] MEDS: Insulin Lispro 100 UNIT/ML INSULN.PEN SC ×3 (05:43→17:56)
[2019-03-21] MEDS: CHLORHEXIDINE GLUC 2% CLOTH 1 EACH TOWELETTE TOPICAL (05:44)
[2019-03-21 05:56] LABS: Bedside Glucose 248 mg/dL (70-110)
[2019-03-21] MEDS: proMETHazine 25 MG/ML Syringe 12.5 MG IV ×2 (06:33→15:03)
[2019-03-21] MEDS: 0.9% NaCl Peripheral Flush Adult/Peds IV (06:36)
--- NOTE | 2019-03-21 06:40 | PN_ITS ---
Subjective: The patient was seen and examined at the bedside this morning. Events from the last 24 hours have been reviewed. The patient is currently afebrile, hemodynamically stable and maintaining appropriate oxygen saturations on room air. Yesterday evening, nursing staff reported concerns over the development of expressive aphasia. The patient was initially taken for CT head which was negative. A follow-up MRI was then completed which only revealed evidence of sinusitis. Overnight, the patient's blood pressures became elevated with systolics in excess of 200 mmHg. The patient received IV Lasix and was started on hydralazine 25 mg by mouth 3 times per day. Creatinine is improved this morning to 1.19. The patient is currently documented to be overall net -2.8 L for the admission. Objective: The patient's most recent lab work, culture data and imaging studies have all been personally reviewed. Surface echocardiogram revealed normal LV size and thickness with an ejection fraction of 55% and stage II diastolic dysfunction. Strep and urine Legionella antigens were both negative. Blood, urine and sputum cultures have been unrevealing to date. CT head and MRI were unremarkable with the exception of sinusitis. General: Alert, Cooperative, No apparent distress HEENT: Atraumatic, PERRLA, Normocephalic Oral: No Gingival or Mucosal Lesions/ Ulcerations Neck: Supple, No Nodes, Trachea Midline Lungs: Diminished, - - Poor inspiratory effort Cardiovascular: Regular rate, Regular Rhythm, Normal S1, Normal S2 Abdomen: Bowel Sounds Present, Soft, Obese Extremities: No clubbing, No cyanosis, - - Improved lower extremity edema Skin: No breakdown Musculoskeletal: No Muscle Wasting Lymphatic: No Cervical, Supraclavicular, or Inguinal Adenopathy Neurological: - - No focal neurological deficits. Psych/Mental Status: Flat Affect, - - Will answer questions but requires frequent prompting. Vital Signs Temp Pulse Resp BP Pulse Ox 98.8 F 77 17 149/68 H 94 03/21/19 05:00 03/21/19 06:00 03/21/19 06:00 03/21/19 06:00 03/21/19 06:00 Oxygen Flow Rate (L/min) 2 Oxygen Delivery Method Room Air Weight: 260 lb 9.382 oz Body Mass Index (BMI) 43.1 Finger Stick Blood Glucose 279 Intake and Output for Last 24 Hours 03/19/19 03/20/19 03/21/19 23:59 23:59 23:59 Intake Total 1790.5 / 1790.5 923.7 / 923.7 195.6 / 195.6 Output Total 925 / 925 2450 / 2450 1400 / 1400 Balance 865.5 / 865.5 -1526.3 / -1526.3 -1204.4 / -1204.4 Labs (Last 48 Hours) 03/19/19 03/19/19 03/19/19 04:40 08:25 08:25 WBC RBC Hgb Hct MCV MCH MCHC RDW Std Deviation RDW Coeff of Be Plt Count MPV Immature Gran % (Auto) Neut % (Auto) Lymph % (Auto) [place] % (Auto) Eos % (Auto) Baso % (Auto) Absolute Neuts (auto) Absolute Lymphs (auto) Nucleated RBC % Sodium Potassium Chloride Carbon Dioxide Anion Gap BUN Creatinine Estim Creat Clear Calc Est GFR (MDRD) Af Amer Est GFR (MDRD) Non-Af BUN/Creatinine Ratio Glucose Calcium Troponin I 0.578 H 0.417 H Urine Color Urine Clarity Urine pH Ur Specific [place] Urine Protein Urine Glucose (UA) Urine Ketones Urine Occult Blood Urine Nitrite Urine Bilirubin Urine Urobilinogen Ur Leukocyte Esterase Urine RBC Urine WBC Ur Squamous Epith Cells Ur Renal Epithelial Cell Urine Bacteria Hyaline Casts Urine Mucus MRSA (PCR) Negative POC Glucose 03/19/19 03/19/19 03/19/19 08:25 13:07 17:23 WBC RBC Hgb Hct MCV MCH MCHC RDW Std Deviation RDW Coeff of Be Plt Count MPV Immature Gran % (Auto) Neut % (Auto) Lymph % (Auto) [place] % (Auto) Eos % (Auto) Baso % (Auto) Absolute Neuts (auto) Absolute Lymphs (auto) Nucleated RBC % Sodium Potassium Chloride Carbon Dioxide Anion Gap BUN Creatinine Estim Creat Clear Calc Est GFR (MDRD) Af Amer Est GFR (MDRD) Non-Af BUN/Creatinine Ratio Glucose Calcium Troponin I Urine Color Yellow Urine Clarity Clear Urine pH 6.0 Ur Specific [place] 1.010 Urine Protein Negative Urine Glucose (UA) Normal Urine Ketones Negative Urine Occult Blood 25 H Urine Nitrite Negative Urine Bilirubin Negative Urine Urobilinogen Normal Ur Leukocyte Esterase 500 H Urine RBC 0-5 SEEN Urine WBC 50-100 SEEN Ur Squamous Epith Cells 0-5 SEEN Ur Renal Epithelial Cell 0-5 SEEN Urine Bacteria RARE Hyaline Casts 0-5 SEEN Urine Mucus 0 SEEN MRSA (PCR) POC Glucose 231 H 221 H 03/19/19 03/20/19 03/20/19 23:31 04:10 04:10 WBC 12.2 H RBC 3.50 L Hgb 9.7 L Hct 29.9 L MCV 85.4 MCH 27.7 MCHC 32.4 RDW Std Deviation 43.6 RDW Coeff of Be 14.1 Plt Count 266 MPV 10.2 Immature Gran % (Auto) 0.400 Neut % (Auto) 74.6 H Lymph % (Auto) 12.8 L [place] % (Auto) 9.9 Eos % (Auto) 1.9 Baso % (Auto) 0.4 Absolute Neuts (auto) 9.1 H Absolute Lymphs (auto) 1.56 Nucleated RBC % 0 Sodium 142 Potassium 4.2 Chloride 107 Carbon Dioxide 25.0 Anion Gap 10 BUN 36 H Creatinine 1.67 H Estim Creat Clear Calc 31.86 Est GFR (MDRD) Af Amer 40 L Est GFR (MDRD) Non-Af 33 L BUN/Creatinine Ratio 21.6 H Glucose 296 H Calcium 8.5 Troponin I Urine Color Urine Clarity Urine pH Ur Specific [place] Urine Protein Urine Glucose (UA) Urine Ketones Urine Occult Blood Urine Nitrite Urine Bilirubin Urine Urobilinogen Ur Leukocyte Esterase Urine RBC Urine WBC Ur Squamous Epith Cells Ur Renal Epithelial Cell Urine Bacteria Hyaline Casts Urine Mucus MRSA (PCR) POC Glucose 274 H 03/20/19 03/20/19 03/20/19 05:22 11:58 18:27 WBC RBC Hgb Hct MCV MCH MCHC RDW Std Deviation RDW Coeff of Be Plt Count MPV Immature Gran % (Auto) Neut % (Auto) Lymph % (Auto) [place] % (Auto) Eos % (Auto) Baso % (Auto) Absolute Neuts (auto) Absolute Lymphs (auto) Nucleated RBC % Sodium Potassium Chloride Carbon Dioxide Anion Gap BUN Creatinine Estim Creat Clear Calc Est GFR (MDRD) Af Amer Est GFR (MDRD) Non-Af BUN/Creatinine Ratio Glucose Calcium Troponin I Urine Color Urine Clarity Urine pH Ur Specific [place] Urine Protein Urine Glucose (UA) Urine Ketones Urine Occult Blood Urine Nitrite Urine Bilirubin Urine Urobilinogen Ur Leukocyte Esterase Urine RBC Urine WBC Ur Squamous Epith Cells Ur Renal Epithelial Cell Urine Bacteria Hyaline Casts Urine Mucus MRSA (PCR) POC Glucose 309 H 246 H 226 H 03/20/19 03/21/19 03/21/19 23:12 04:00 04:00 WBC 12.4 H RBC 4.23 Hgb 11.6 L Hct 35.0 L MCV 82.7 MCH 27.4 MCHC 33.1 RDW Std Deviation 40.6 RDW Coeff of Be 13.6 Plt Count 350 MPV 9.7 Immature Gran % (Auto) 0.300 Neut % (Auto) 71.4 H Lymph % (Auto) 15.6 L [place] % (Auto) 8.9 Eos % (Auto) 3.2 Baso % (Auto) 0.6 Absolute Neuts (auto) 8.8 H Absolute Lymphs (auto) 1.94 Nucleated RBC % 0 Sodium 140 Potassium 3.7 Chloride 104 Carbon Dioxide 28.0 Anion Gap 8 BUN 22 H Creatinine 1.19 H Estim Creat Clear Calc 44.71 Est GFR (MDRD) Af Amer 59 L Est GFR (MDRD) Non-Af 49 L BUN/Creatinine Ratio 18.5 Glucose 240 H Calcium 9.6 Troponin I Urine Color Urine Clarity Urine pH Ur Specific [place] Urine Protein Urine Glucose (UA) Urine Ketones Urine Occult Blood Urine Nitrite Urine Bilirubin Urine Urobilinogen Ur Leukocyte Esterase Urine RBC Urine WBC Ur Squamous Epith Cells Ur Renal Epithelial Cell Urine Bacteria Hyaline Casts Urine Mucus MRSA (PCR) POC Glucose 231 H 03/21/19 05:42 WBC RBC Hgb Hct MCV MCH MCHC RDW Std Deviation RDW Coeff of Be Plt Count MPV Immature Gran % (Auto) Neut % (Auto) Lymph % (Auto) [place] % (Auto) Eos % (Auto) Baso % (Auto) Absolute Neuts (auto) Absolute Lymphs (auto) Nucleated RBC % Sodium Potassium Chloride Carbon Dioxide Anion Gap BUN Creatinine Estim Creat Clear Calc Est GFR (MDRD) Af Amer Est GFR (MDRD) Non-Af BUN/Creatinine Ratio Glucose Calcium Troponin I Urine Color Urine Clarity Urine pH Ur Specific [place] Urine Protein Urine Glucose (UA) Urine Ketones Urine Occult Blood Urine Nitrite Urine Bilirubin Urine Urobilinogen Ur Leukocyte Esterase Urine RBC Urine WBC Ur Squamous Epith Cells Ur Renal Epithelial Cell Urine Bacteria Hyaline Casts Urine Mucus MRSA (PCR) POC Glucose 248 H Microbiology 03/19/19 11:20 Sputum, Induced/Lukens Gram Stain - Final 03/19/19 11:20 Sputum, Induced/Lukens Respiratory Culture - Preliminary Culture exhibits no growth. Clinical Impression(s) from Imaging Studies Chest X-Ray 03/18/19 17:34 IMPRESSION: Mild edema as above Electronically Signed: Chung Martinez MD at 17:50 EDT , Service support , Chest X-Ray 03/18/19 19:28 IMPRESSION: Moderate edema increased. New enteric and ET tubes as above. Recommend withdrawing the ET tube from the right mainstem bronchus 4 cm. Electronically Signed: Chung Martinez MD at 20:10 EDT , Service support , ADDENDUM: 03/18/192024 IMPRESSION: Moderate edema increased. New enteric and ET tubes as above. Recommend withdrawing the ET tube from the right mainstem bronchus 4 cm. N.B. : The above information has been verbally conveyed by Chung Martinez MD to Dr. Chris MD, on 03/18/2019 20:18:28 (ET). Electronically Signed: Chung Martinez MD at 20:10 EDT , Service support , Chest X-Ray 03/18/19 19:58 IMPRESSION: ET tube now 16 mm above the melisa. Moderate interstitial edema and right lower lobe airspace disease unchanged. Electronically Signed: Chung Martinez MD at 20:18 EDT , Service support , Chest X-Ray 03/19/19 07:55 IMPRESSION: The tip of the endotracheal tube is at the origin of the right mainstem bronchus. Progressive CHF with atelectasis and/or infiltrate at both lung bases worse on the left side. Blunting of the left costophrenic angle. Electronically Signed: Tristan De La Garza at 12:49 EDT , Service support , Brain CT 03/20/19 15:40 IMPRESSION: Mild chronic sinusitis of the left maxillary and sphenoid sinuses. There is no evidence of intracranial hemorrhage or acute infarct. Findings are similar to the previous study. Electronically Signed: Gareth Gamble MD at 16:33 EDT , Service support , Brain MRI 03/20/19 16:44 IMPRESSION: Sinusitis. Empty sella. No acute disease. Electronically Signed: Chung Martinez MD at 21:33 EDT , Service support , Medical Necessity - Tobacco Use Smoking Status: Never smoker Assessment/Plan All Active Problems (Last Reviewed 03/06/19 @ 06:45 by Jacques Santos MD) Acute respiratory failure with hypoxia (Acute) Flash pulmonary edema (Acute) Acute respiratory failure (Acute) NSTEMI (non-ST elevated myocardial infarction) (Resolved) Acute kidney injury (Acute) Hyponatremia (Acute) Noninfective enterocolitis (Acute) RECOMMENDATIONS: 1. Discontinue antibiotics, given negative infectious work-up. 2. Restart basal insulin regimen. 3. Continue antihypertensive regimen. 4. Transition from IV to p.o. Lasix. 5. Encourage incentive spirometer use while in bed and mobilize patient as tolerated. 6. Patient is medically stable for transfer out of the ICU setting. IMPRESSIONS: 1. Acute combined respiratory failure Resolved. Initially felt to be secondary to decompensated heart failure/flash pulmonary edema in the setting of uncontrolled hypertension noted on admission. The patient was also covered empirically with antibiotics for potential infectious etiology. However, infectious work-up was negative and antibiotics were subsequently discontinued. The patient improved with invasive mechanical ventilatory support and was able to be extubated on the morning of March 2. She is currently maintaining appropriate oxygen saturations on room air. Continue to encourage incentive spirometer use and mobilize patient as tolerated. 2. Leukocytosis/low-grade fevers Resolved. The patient did present to the emergency department with elevated blood pressures, but was noted to be tachycardic and tachypneic in the setting of an elevated white blood cell count. Therefore, broad-spectrum antibiotics were initiated to cover for potential infectious process. Subsequent infectious work-up was negative and the antibiotics were therefore discontinued. 3. Acute on chronic heart failure with preserved ejection fraction/troponin elevation/T wave inversions Troponins eventually plateaued. Echocardiogram did not reveal any significant interval changes. Okay to resume antihypertensive regimen given stability and hemodynamics and improved renal function. 4. Acute on chronic kidney disease Likely secondary to derangements and hemodynamic status along with concurrent diuretic utilization. The patient has remained hemodynamically stable. We will continue to monitor urine output. No indication for renal replacement therapy at this time. 5. Diabetes mellitus/hypertension/morbid obesity Complicates care, management, recovery and prognosis. Restart basal insulin regimen once diet has been advanced. Physical therapy to work with the patient. This note was generated with [employer] dictation software. It may contain incorrect words, spelling, and punctuation that were not noted in checking the note before signing. DISPOSITION: As the patient is without further ICU or pulmonary needs, will sign off. Please call with any additional questions. Code Visit Inpatient E&M: 26500 Subs Hosp L3
--- NOTE | 2019-03-21 08:43 | PN_ITS ---
Subjective: Patient seen and examined. Patient is still quite lethargic and just looks at you when you ask questions. There was concern for some expressive aphasia yesterday but his CT brain and MRI of the brain done were negative for any stroke. It does seem like patient has some behavioral issues and this could be contributing to her current state. Unable to do review of systems on account of patient not being very communicative. Vitals/I&O's: Vital Signs Temp Pulse Resp BP Pulse Ox 98.8 F 77 17 149/68 H 94 03/21/19 05:00 03/21/19 06:00 03/21/19 06:00 03/21/19 06:00 03/21/19 06:00 Oxygen Flow Rate (L/min) 2 Oxygen Delivery Method Room Air Weight: 260 lb 9.382 oz Body Mass Index (BMI) 43.1 Finger Stick Blood Glucose 279 Intake and Output for Last 24 Hours 03/19/19 03/20/19 03/21/19 23:59 23:59 23:59 Intake Total 1790.5 / 1790.5 923.7 / 923.7 195.6 / 195.6 Output Total 925 / 925 2450 / 2450 1400 / 1400 Balance 865.5 / 865.5 -1526.3 / -1526.3 -1204.4 / -1204.4 General: Alert, Cooperative, lethargic, No apparent distress HEENT: Atraumatic, PERRLA, EOMI, Normocephalic Oral: Dry Mucosa Neck: Supple, No JVD, Negative Carotid Bruits Lungs: - - decreased breath sounds bibasally,few coarse crackles bibasally. on 2L of oxygen by nasal canula Cardiovascular: Regular rate, Regular Rhythm, Normal S1, Normal S2, No murmurs Abdomen: Bowel Sounds Present, Soft, Non Tender, Non-Distended, No Hepato- splenomegaly Extremities: No clubbing, No cyanosis, Capillary Refill Less than 3 Seconds, - - mild 1+ bipedal pitting edema Skin: No rashes, No breakdown Musculoskeletal: No Tenderness to Palpation of Joints or Extremities Lymphatic: No Cervical, Supraclavicular, or Inguinal Adenopathy Neurological: Cranial nerves II-XII grossly intact, lethargic, Motor Exam 5/5 strength throughout Psych/Mental Status: lethargic. Microbiology Past 72 Hours 03/19/19 11:20 Sputum, Induced/Lukens Gram Stain - Final 03/19/19 11:20 Sputum, Induced/Lukens Respiratory Culture - Preliminary Culture exhibits no growth. 03/18/19 21:00 Urine Catheter - Catheter Streptococcus pneumoniae Antigen (M - Final 03/18/19 21:00 Urine Catheter - Catheter Legionella Antigen - Final Laboratory Results 03/20/19 11:58: POC Glucose 246 H 03/20/19 18:27: POC Glucose 226 H 03/20/19 23:12: POC Glucose 231 H 03/21/19 04:00: WBC 12.4 H, RBC 4.23, Hgb 11.6 L, Hct 35.0 L, MCV 82.7, MCH 27 .4, MCHC 33.1, RDW Std Deviation 40.6, RDW Coeff of Be 13.6, Plt Count 350, MPV 9.7, Immature Gran % (Auto) 0.300, Neut % (Auto) 71.4 H, Lymph % (Auto) 15.6 L, [place] % (Auto) 8.9, Eos % (Auto) 3.2, Baso % (Auto) 0.6, Absolute Neuts (auto) 8.8 H, Absolute Lymphs (auto) 1.94, Nucleated RBC % 0 03/21/19 04:00: Sodium 140, Potassium 3.7, Chloride 104, Carbon Dioxide 28.0, Anion Gap 8, BUN 22 H, Creatinine 1.19 H, Estim Creat Clear Calc 44.71, Est GFR (MDRD) Af Amer 59 L, Est GFR (MDRD) Non-Af 49 L, BUN/Creatinine Ratio 18.5, Glucose 240 H, Calcium 9.6 03/21/19 05:42: POC Glucose 248 H Diagnostic Data Chest X-Ray 03/19/19 07:55 IMPRESSION: The tip of the endotracheal tube is at the origin of the right mainstem bronchus. Progressive CHF with atelectasis and/or infiltrate at both lung bases worse on the left side. Blunting of the left costophrenic angle. Electronically Signed: Tristan De La Garza, at 12:49 EDT , Service support , Brain CT 03/20/19 15:40 IMPRESSION: Mild chronic sinusitis of the left maxillary and sphenoid sinuses. There is no evidence of intracranial hemorrhage or acute infarct. Findings are similar to the previous study. Electronically Signed: Gareth Gamble MD at 16:33 EDT , Service support , Brain MRI 03/20/19 16:44 IMPRESSION: Sinusitis. Empty sella. No acute disease. Electronically Signed: Chung Martinez MD at 21:33 EDT , Service support , Current Medications Acetaminophen (Tylenol) 650 mg RECTAL Q4H PRN PRN PRN Reason: Mild Pain (1-3)/Temp > 100.7 F Albuterol Sulfate (Ventolin Aerosols) 2.5 mg INHALATION Q2H PRN PRN PRN Reason: SOB/Wheezing Calamine/Phenol (Calmoseptine Ointment) 1 applic TOPICAL BID [facility]; Protocol Last Admin: 03/20/19 21:05 Dose: 1 applic Documented by: Chlorhexidine Gluconate () 1 each TOPICAL DAILY [facility] Last Admin: 03/21/19 05:44 Dose: 1 each Documented by: Dextrose (D50w Syringe) 0 gm IV X1 PRN; Protocol PRN Reason: Hypoglycemia Enoxaparin Sodium (Lovenox) 40 mg SC DAILY@1000 [facility] Last Admin: 03/20/19 10:27 Dose: 40 mg Documented by: Furosemide (Lasix) 40 mg IV DAILY [facility] Glucagon () 1 mg IM .X1 PRN PRN Reason: Hypoglycemia Hydralazine HCl (Apresoline Iv) 10 mg IV Q4H PRN PRN PRN Reason: SBP>180 mmhg Hydralazine HCl (Apresoline) 25 mg PO TID [facility] Last Admin: 03/21/19 05:38 Dose: 25 mg Documented by: Sodium Chloride () 250 mls @ 15 mls/hr IV .[id number] PRN PRN Reason: SALINE FLUSH Insulin Human Lispro (Humalog Kwikpen (Bkc)) 0 unit SC Q6 [facility]D; Protocol Last Admin: 03/21/19 05:43 Dose: 4 u Documented by: Nutritional Formula (Lactose Free) (Glucerna Shake) 120 ml PO TIDCM [facility]D Nystatin (Mycostatin Powder) 1 applic TOPICAL BID [facility]D; Protocol Last Admin: 03/20/19 21:05 Dose: 1 applic Documented by: Promethazine HCl (Phenergan) 12.5 mg IV Q6H PRN PRN PRN Reason: Breakthrough Nausea/Vomiting Last Admin: 03/21/19 06:33 Dose: 12.5 mg Documented by: Senna/Docusate Sodium (Senokot-S, Huma-Colace) 2 tablet PO BID PRN PRN PRN Reason: Constipation Sodium Chloride () 10 - 40 ml IV UD PRN PRN Reason: SALINE FLUSH Last Admin: 03/21/19 06:36 Dose: 20 ml Documented by: Medical Necessity - Tobacco Use Smoking Status: Never smoker Assessment/Plan All Active Problems (Last Reviewed 03/06/19 @ 06:45 by Jacques Santos MD) Acute respiratory failure with hypoxia (Acute) Flash pulmonary edema (Acute) Acute respiratory failure (Acute) NSTEMI (non-ST elevated myocardial infarction) (Resolved) Acute kidney injury (Acute) Hyponatremia (Acute) Noninfective enterocolitis (Acute) 1. Acute hypoxic respiratory failure due to acute on chronic HFpEF * successfully extubated, now weaned off oxygen, and now on room air. * BP is now up to 170s systolic. * oxygen prn to maintain sats>90% * breathing treataments * 2. Acute on chronic HFpEF * CXR showed pulmonary edema * bumex and carvedilol were held o/a of hypotension. Will resume carvedilol and lasix as hypotension has now resolved. * 2D echo: EF of 65% with diastolic dysfunction, no regional wall motion abnormality and normal RV size and systolic function. LA moderately enlarged. 3. Leucocytosis: * wbc is now 12. Low grade fever has resolved. * on IV zosyn empirically. * blood and urine cultures pending. Sputum gram stain showed 2+ wbcs and no organisms seen, and urine for strep and legionella antigens negative. * 4. Elevated troponins * likely due to acute on chronic heart failure; may also have been due to troponin leak from elevated BP * asymptomatic and EKG showed no acute ST changes * will monitor * 5. CKD 3: * Cr is down to 1.19 today. * will monitor * * 6. TYpe 2 diabetes mellitus * accuchecks q6. ISS * home insulin 25units daily on hold. * * 7.paroxysmal Afib: will resume carvedilol today as hypotension has resolved. 8. Hypothyroidism: On Synthroid. will check TSH 9. History of Takotsubo cardiomyopathy: Stable 10. History of seizure disorder: stable 11. Chronic pain syndrome: on NOrco 12. GERD: on famotidine 13. Gout: on allopurinol 13. Hypertension: carvedilol on hold o/a of hypotension. 14. Hyperlipidemia: On statin. DVT prophylaxis: Lovenox 30 mg daily. Disposition: transfer to PCU Code Visit Inpatient E&M: 53923 Subs Hosp L3
[2019-03-21] MEDS: Enoxaparin 40 MG/0.4 ML Syringe SC (09:21)
[2019-03-21] MEDS: Furosemide 40 MG/4 ML Vial IV (09:21)
[2019-03-21] MEDS: Nystatin Powder 15gm Bottle 1 APPLIC TOPICAL ×2 (09:21→22:31)
[2019-03-21] MEDS: Menthol/Lanolin/Calamine/Znox 113 GM Tube 1 APPLIC TOPICAL ×2 (09:21→22:31)
[2019-03-21 09:49] LABS: Thyroid Stim Hormone (TSH) 2.24 uIU/mL (0.358-3.74)
[2019-03-21] MEDS: Glucerna Shake 120 ML LIQUID PO (12:22)
[2019-03-21 12:25] LABS: Bedside Glucose 297 mg/dL (70-110)
[2019-03-21 18:01] LABS: Bedside Glucose 271 mg/dL (70-110)
[2019-03-22] VITALS (14 sets, daily range): BP systolic 134–182; BP diastolic 68–88; PULSE 74–99; RESP 12–18; TEMP 36.8–37.1; O2SAT 94–96
[2019-03-22] MEDS: Insulin Lispro 100 UNIT/ML INSULN.PEN SC ×4 (00:25→16:58)
[2019-03-22 00:36] LABS: Bedside Glucose 264 mg/dL (70-110)
--- NOTE | 2019-03-22 01:34 | NURSING ---
This RN asks patient questions, most of them are answered yes/no. When asking multiple questions patient answers but then stops answering and just laughs. Patient is able to state name and date of .
[2019-03-22 05:38] LABS: Absolute Lymphocyte Count 2.06 X10^3/uL (0.83-4.51); Absolute Neutrophil Count 11.7 X10^3/uL (2.0-7.7); Basophil# 0.09 X10^3/uL; Basophil% 0.6 % (0-1); Eosinophil# 0.32 X10^3/uL; Eosinophils% 2.1 % (0-5); Hematocrit 38.3 % (37-47); Hemoglobin 12.6 g/dL (12.0-15.0); Lymphocyte # 2.06 X10^3/ul (4.0); Lymphocyte % 13.3 % (19-41); Mean Corp Hgb Conc 32.9 g/dL (32-36); Mean Corpuscular Hgb 26.8 pg (27.0-32.0); Mean Corpuscular Volume 81.5 fL (81-99); Mean Platelet Vol. 10.2 fl (6.2-12.0); Monocyte# 1.24 X10^3/uL; NRBC Flagged by Analyzer 0 % (0-5); Neutrophil # 11.68 X10^3/uL (2.7-7.7); Neutrophil % 75.5 % (47-70); Platelet Count 394 K/mm3 (150-450); RBC Distribution Width CV 13.2 % (11.6-14.6); RBC Distribution Width SD 39.2 fl (35.1-43.9); White Blood Count 15.5 K/mm3 (4.4-11.0)
[2019-03-22 05:49] LABS: Anion Gap 12 (5-15); BUN 24 mg/dL (7-18); Calcium,Total 9.4 mg/dL (8.5-10.1); Chloride 100 mmol/L (98-107); Creatinine, Serum 1.09 mg/dL (0.55-1.02); EST Glomerular Filtration Rate 54 mL/min (>60); Est Glom Filt Rate - Afr Amer 65 mL/min (>60); Estimated Creatinine Clearance 48.81 ml/min; Glucose 224 mg/dL (74-106); Sodium Level 139 mmol/L (136-145)
--- NOTE | 2019-03-22 06:02 | NURSING ---
Patient has been incontinent all night, with purewick not working. Patient states she is not nausea but will gag herself to produce vomit multiple times through night.
[2019-03-22] MEDS: hydrALAZINE 25 MG Tablet PO ×3 (06:21→21:36)
[2019-03-22 06:50] LABS: Bedside Glucose 255 mg/dL (70-110)
[2019-03-22] MEDS: Menthol/Lanolin/Calamine/Znox 113 GM Tube 1 APPLIC TOPICAL ×2 (09:56→21:36)
[2019-03-22] MEDS: Nystatin Powder 15gm Bottle 1 APPLIC TOPICAL ×2 (09:56→21:38)
[2019-03-22] MEDS: Enoxaparin 40 MG/0.4 ML Syringe SC (09:56)
--- NOTE | 2019-03-22 10:20 | PN_ITS ---
Subjective: Patient seen and examined this morning. She was lying comfortably in bed. Patient does seem to have some behavioral issues and at times he states that she when you ask her questions. She states she lives with her stepson who helps take care of her. However doubt that patient will be able to take care of herself at home. I suggested to her about correction and patient is agreeable. She has no complaints this morning. Review of systems otherwise negative. Labs and vitals reviewed. Vitals/I&O's: Vital Signs Temp Pulse Resp BP Pulse Ox 98.3 F 78 12 182/88 H 94 03/22/19 09:55 03/22/19 09:55 03/22/19 09:55 03/22/19 09:55 03/22/19 09:55 Oxygen Flow Rate (L/min) 2 Oxygen Delivery Method Room Air Weight: 248 lb 14.43 oz Body Mass Index (BMI) 43.1 Finger Stick Blood Glucose 279 Intake and Output for Last 24 Hours 03/20/19 03/21/19 03/22/19 23:59 23:59 23:59 Intake Total 923.7 / 923.7 665.6 / 665.6 Output Total 2450 / 2450 1600 / 1600 Balance -1526.3 / -1526.3 -934.4 / -934.4 General: Alert, Cooperative, lethargic, No apparent distress HEENT: Atraumatic, PERRLA, EOMI, Normocephalic Oral: Dry Mucosa Neck: Supple, No JVD, Negative Carotid Bruits Lungs: - - decreased breath sounds bibasally,few coarse crackles bibasally. on 2L of oxygen by nasal canula Cardiovascular: Regular rate, Regular Rhythm, Normal S1, Normal S2, No murmurs Abdomen: Bowel Sounds Present, Soft, Non Tender, Non-Distended, No Hepato- splenomegaly Extremities: No clubbing, No cyanosis, Capillary Refill Less than 3 Seconds, - no edema Skin: No rashes, No breakdown Musculoskeletal: No Tenderness to Palpation of Joints or Extremities Lymphatic: No Cervical, Supraclavicular, or Inguinal Adenopathy Neurological: Cranial nerves II-XII grossly intact, lethargic, Motor Exam 5/5 strength throughout Psych/Mental Status: lethargic. Microbiology Past 72 Hours 03/18/19 21:25 Blood Culture (Wb) #2 - No Site/Description Given Blood Culture - Preliminary No growth in 48 hours. 03/18/19 21:00 Blood Culture (Wb) - Right Wrist Blood Culture - Preliminary No growth in 48 hours. 03/19/19 11:20 Sputum, Induced/Lukens Gram Stain - Final 03/19/19 11:20 Sputum, Induced/Lukens Respiratory Culture - Final Culture exhibits no growth. 03/19/19 08:25 Urine Catheter - Catheter Urine Culture - Final Culture exhibits no growth. Laboratory Results 03/21/19 12:20: POC Glucose 297 H 03/21/19 17:55: POC Glucose 271 H 03/22/19 00:23: POC Glucose 264 H 03/22/19 04:50: WBC 15.5 H, RBC 4.70, Hgb 12.6, Hct 38.3, MCV 81.5, MCH 26.8 L, MCHC 32.9, RDW Std Deviation 39.2, RDW Coeff of Be 13.2, Plt Count 394, MPV 10.2, Immature Gran % (Auto) 0.500, Neut % (Auto) 75.5 H, Lymph % (Auto) 13.3 L, [place] % (Auto) 8.0, Eos % (Auto) 2.1, Baso % (Auto) 0.6, Absolute Neuts (auto) 11.7 H, Absolute Lymphs (auto) 2.06, Nucleated RBC % 0 03/22/19 04:50: Sodium 139, Potassium 3.0 L, Chloride 100, Carbon Dioxide 27.0, Anion Gap 12, BUN 24 H, Creatinine 1.09 H, Estim Creat Clear Calc 48.81, Est GFR (MDRD) Af Amer 65, Est GFR (MDRD) Non-Af 54 L, BUN/Creatinine Ratio 22.0 H, Glucose 224 H, Calcium 9.4 03/22/19 06:20: POC Glucose 255 H Diagnostic Data Chest X-Ray 03/19/19 07:55 IMPRESSION: The tip of the endotracheal tube is at the origin of the right mainstem bronchus. Progressive CHF with atelectasis and/or infiltrate at both lung bases worse on the left side. Blunting of the left costophrenic angle. Electronically Signed: Tristan De La Garza, at 12:49 EDT , Service support , Brain CT 03/20/19 15:40 IMPRESSION: Mild chronic sinusitis of the left maxillary and sphenoid sinuses. There is no evidence of intracranial hemorrhage or acute infarct. Findings are similar to the previous study. Electronically Signed: Gareth Gamble MD at 16:33 EDT , Service support , Brain MRI 03/20/19 16:44 IMPRESSION: Sinusitis. Empty sella. No acute disease. Electronically Signed: Chung Martinez MD at 21:33 EDT , Service support , Current Medications Acetaminophen (Tylenol) 650 mg RECTAL Q4H PRN PRN PRN Reason: Mild Pain (1-3)/Temp > 100.7 F Albuterol Sulfate (Ventolin Aerosols) 2.5 mg INHALATION Q2H PRN PRN PRN Reason: SOB/Wheezing Calamine/Phenol (Calmoseptine Ointment) 1 applic TOPICAL BID [facility]; Protocol Last Admin: 03/22/19 09:56 Dose: 1 applic Documented by: Dextrose (D50w Syringe) 0 gm IV X1 PRN; Protocol PRN Reason: Hypoglycemia Enoxaparin Sodium (Lovenox) 40 mg SC DAILY@1000 [facility] Last Admin: 03/22/19 09:56 Dose: 40 mg Documented by: Furosemide (Lasix) 40 mg PO DAILY [facility] Glucagon () 1 mg IM .X1 PRN PRN Reason: Hypoglycemia Hydralazine HCl (Apresoline Iv) 10 mg IV Q4H PRN PRN PRN Reason: SBP>180 mmhg Hydralazine HCl (Apresoline) 25 mg PO TID [facility] Last Admin: 03/22/19 06:21 Dose: 25 mg Documented by: Sodium Chloride () 250 mls @ 15 mls/hr IV .[id number] PRN PRN Reason: SALINE FLUSH Insulin Human Lispro (Humalog Kwikpen (Bkc)) 0 unit SC Q6 [facility]; Protocol Last Admin: 03/22/19 06:21 Dose: 4 u Documented by: Nutritional Formula (Lactose Free) (Glucerna Shake) 120 ml PO TIDCM [facility] Last Admin: 03/22/19 09:32 Dose: Not Given Documented by: Nystatin (Mycostatin Powder) 1 applic TOPICAL BID [facility]; Protocol Last Admin: 03/22/19 09:56 Dose: 1 applic Documented by: Promethazine HCl (Phenergan) 12.5 mg IV Q6H PRN PRN PRN Reason: Breakthrough Nausea/Vomiting Last Admin: 03/21/19 15:03 Dose: 12.5 mg Documented by: Senna/Docusate Sodium (Senokot-S, Huma-Colace) 2 tablet PO BID PRN PRN PRN Reason: Constipation Sodium Chloride () 10 - 40 ml IV UD PRN PRN Reason: SALINE FLUSH Last Admin: 03/21/19 06:36 Dose: 20 ml Documented by: Medical Necessity - Tobacco Use Smoking Status: Never smoker Assessment/Plan All Active Problems (Last Reviewed 03/06/19 @ 06:45 by Jacques Santos MD) Acute respiratory failure with hypoxia (Acute) Flash pulmonary edema (Acute) Acute respiratory failure (Acute) NSTEMI (non-ST elevated myocardial infarction) (Resolved) Acute kidney injury (Acute) Hyponatremia (Acute) Noninfective enterocolitis (Acute) 1. Acute hypoxic respiratory failure due to acute on chronic HFpEF * resolved. Now on room air. * on breathing treatments. * titrate oxygen to maintain sats>90% * 2. Acute on chronic HFpEF * CXR showed pulmonary edema * on IV lasix 40mg daily. Will switch to PO lasix 40mg daily * on carvedilol * 2D echo: EF of 65% with diastolic dysfunction, no regional wall motion abnormality and normal RV size and systolic function. LA moderately enlarged. 3. Leucocytosis: * wbc is up to 15 today. however, low grade fever has resolved. * on IV zosyn empirically. no clear evidence of infection * blood and urine cultures were negative, and sputjm culture was also negative. * urine for strep and Legionella antigens were also negative. * will dc antibiotics for now and monitor * 4. Hypokalemia: K is 3 today. Will replace and monitor 5. Elevated troponins * likely due to acute on chronic heart failure; may also have been due to troponin leak from elevated BP * asymptomatic and EKG showed no acute ST changes * * 6. CKD 3: * Cr is down to 1.19 today. * will monitor * * 7. Type 2 diabetes mellitus * accuchecks ACHS * hwill resume home insulin 25IU daily * * 8.paroxysmal Afib: on carvedilol 9. Hypothyroidism: On Synthroid. will check TSH 10. History of Takotsubo cardiomyopathy: Stable 11. History of seizure disorder: stable 12. Chronic pain syndrome: on NOrco 13. GERD: on famotidine 14. Gout: on allopurinol 15. Hypertension: on carvedilol and candesartan 16. Hyperlipidemia: On statin. DVT prophylaxis: Lovenox 30 mg daily. Disposition: awaiting placement in SNF. Code Visit Inpatient E&M: 60463 Subs Hosp L2
[2019-03-22] MEDS: Furosemide 40 MG Tablet PO (11:34)
[2019-03-22] MEDS: Losartan Potassium 25 MG Tablet 75 MG PO (11:34)
[2019-03-22] MEDS: Carvedilol 3.125 MG TABLET PO ×2 (11:34→21:36)
[2019-03-22] MEDS: Glucerna Shake 120 ML LIQUID PO ×2 (11:35→16:57)
[2019-03-22 11:41] LABS: Bedside Glucose 280 mg/dL (70-110)
[2019-03-22] MEDS: Insulin Lispro 100 UNIT/ML INSULN.PEN 25 UNIT SC (16:57)
[2019-03-22] MEDS: Hydroxychloroquine 200 MG Tablet PO (17:04)
[2019-03-22 17:06] LABS: Bedside Glucose 313 mg/dL (70-110)
[2019-03-22] MEDS: Pregabalin 75 MG Capsule 225 MG PO (21:37)
[2019-03-22] MEDS: Atorvastatin Calcium 20 MG Tablet PO (21:37)
[2019-03-22] MEDS: Pramipexole Di-HCl 0.5 MG Tablet PO (21:38)
[2019-03-23] VITALS (8 sets, daily range): BP systolic 119–136; BP diastolic 36–69; PULSE 59–81; RESP 14–16; TEMP 36.4–36.7; O2SAT 95–97
[2019-03-23] MEDS: Insulin Lispro 100 UNIT/ML INSULN.PEN SC ×3 (00:14→11:27)
[2019-03-23 00:21] LABS: Bedside Glucose 166 mg/dL (70-110)
[2019-03-23] MEDS: hydrALAZINE 25 MG Tablet PO ×2 (05:47→13:51)
[2019-03-23] MEDS: Levothyroxine 75 MCG Tablet PO (05:51)
[2019-03-23 06:01] LABS: Bedside Glucose 201 mg/dL (70-110)
[2019-03-23 06:21] LABS: Absolute Lymphocyte Count 4.24 X10^3/uL (0.83-4.51); Absolute Neutrophil Count 8.6 X10^3/uL (2.0-7.7); Basophil# 0.11 X10^3/uL; Basophil% 0.7 % (0-1); Eosinophil# 0.64 X10^3/uL; Eosinophils% 4.3 % (0-5); Hematocrit 40.2 % (37-47); Hemoglobin 12.9 g/dL (12.0-15.0); Lymphocyte # 4.24 X10^3/ul (4.0); Lymphocyte % 28.3 % (19-41); Mean Corp Hgb Conc 32.1 g/dL (32-36); Mean Corpuscular Hgb 26.4 pg (27.0-32.0); Mean Corpuscular Volume 82.2 fL (81-99); Mean Platelet Vol. 10.1 fl (6.2-12.0); Monocyte# 1.32 X10^3/uL; Monocyte% 8.8 % (0-10); NRBC Flagged by Analyzer 0 % (0-5); Neutrophil # 8.62 X10^3/uL (2.7-7.7); Neutrophil % 57.4 % (47-70); Platelet Count 396 K/mm3 (150-450); RBC Distribution Width CV 13.7 % (11.6-14.6); RBC Distribution Width SD 40.7 fl (35.1-43.9); Red Blood Count 4.89 M/mm3 (4.2-5.4)
[2019-03-23 06:29] LABS: Anion Gap 12 (5-15); BUN 32 mg/dL (7-18); BUN/Creat Ratio 24.4 RATIO (10-20); Calcium,Total 8.9 mg/dL (8.5-10.1); Chloride 98 mmol/L (98-107); Creatinine, Serum 1.31 mg/dL (0.55-1.02); EST Glomerular Filtration Rate 43 mL/min (>60); Est Glom Filt Rate - Afr Amer 53 mL/min (>60); Estimated Creatinine Clearance 40.61 ml/min; Glucose 163 mg/dL (74-106); Potassium 3.1 mmol/L (3.5-5.1); Sodium Level 137 mmol/L (136-145)
[2019-03-23 08:25] LABS: Bedside Glucose 184 mg/dL (70-110)
[2019-03-23] MEDS: Glucerna Shake 120 ML LIQUID PO ×2 (08:28→11:26)
[2019-03-23] MEDS: Hydroxychloroquine 200 MG Tablet PO (08:29)
[2019-03-23] MEDS: Insulin Lispro 100 UNIT/ML INSULN.PEN 25 UNIT SC (08:29)
[2019-03-23] MEDS: Allopurinol 300 MG Tablet PO (08:29)
[2019-03-23] MEDS: Pregabalin 75 MG Capsule 225 MG PO (09:01)
[2019-03-23] MEDS: Nystatin Powder 15gm Bottle 1 APPLIC TOPICAL (09:01)
[2019-03-23] MEDS: Enoxaparin 40 MG/0.4 ML Syringe SC (09:02)
[2019-03-23] MEDS: Furosemide 40 MG Tablet PO (09:02)
[2019-03-23] MEDS: Losartan Potassium 25 MG Tablet 75 MG PO (09:02)
[2019-03-23] MEDS: Montelukast 10 MG Tablet PO (09:03)
[2019-03-23] MEDS: Pantoprazole Sodium 40 MG Tablet PO (09:03)
[2019-03-23] MEDS: Sertraline 50 MG Tablet 25 MG PO (09:03)
[2019-03-23] MEDS: Carvedilol 3.125 MG TABLET PO (09:04)
--- NOTE | 2019-03-23 10:25 | CASEMGMT ---
SW spoke with patient regarding which SNF she would like to go to. She said she has been to [facility] in the past and would like to go there at d/c. SW told her SW will work on this and that we will have to wait for insurance to authorize. AJ explained this likely would not happen today. AJ called Radha at [facility] with referral. SW also faxed referral information. AJ will send therapy notes once they see her today. Mckayla SNEED MSW
--- NOTE | 2019-03-23 10:40 | PN_ITS ---
Subjective: Doing well to take, no acute events overnight. She is sitting up in the chair today. She is willing to go to a [facility] facility for rehab prior to discharge home. Vitals/I&O's: Vital Signs Temp Pulse Resp BP Pulse Ox 98.0 F 81 16 128/69 H 97 03/23/19 09:00 03/23/19 09:00 03/23/19 09:00 03/23/19 09:00 03/23/19 09:00 Oxygen Flow Rate (L/min) 2 Oxygen Delivery Method Room Air Weight: 255 lb 8.252 oz Body Mass Index (BMI) 43.1 Finger Stick Blood Glucose 279 Intake and Output for Last 24 Hours 03/21/19 03/22/19 03/23/19 23:59 23:59 23:59 Intake Total 665.6 / 665.6 1580 / 1580 240 / 240 Output Total 1600 / 1600 Balance -934.4 / -934.4 1580 / 1580 240 / 240 General: Alert, Oriented x3, Cooperative, No apparent distress HEENT: Atraumatic, PERRLA, EOMI, Normocephalic Oral: Moist Mucosa Neck: Supple, No JVD Lungs: Clear to auscultation, Normal air movement, No rhonchi, No wheeze, No rales, Diminished Cardiovascular: Regular rate, Regular Rhythm, Normal S1, Normal S2, No murmurs Abdomen: Soft, Non Tender, Non-Distended, No Hepato-splenomegaly Extremities: No edema, Capillary Refill Less than 3 Seconds Skin: No rashes, No breakdown Neurological: Neuro grossly intact, Sensory exam intact to light touch and pain Psych/Mental Status: Normal Affect, Appropriate Microbiology Past 72 Hours 03/18/19 21:25 Blood Culture (Wb) #2 - No Site/Description Given Blood Culture - Preliminary No growth in 48 hours. 03/18/19 21:00 Blood Culture (Wb) - Right Wrist Blood Culture - Preliminary No growth in 48 hours. 03/19/19 11:20 Sputum, Induced/Lukens Gram Stain - Final 03/19/19 11:20 Sputum, Induced/Lukens Respiratory Culture - Final Culture exhibits no growth. 03/19/19 08:25 Urine Catheter - Catheter Urine Culture - Final Culture exhibits no growth. Laboratory Results 03/22/19 11:35: POC Glucose 280 H 03/22/19 16:57: POC Glucose 313 H 03/23/19 00:12: POC Glucose 166 H 03/23/19 05:10: Sodium 137, Potassium 3.1 L, Chloride 98, Carbon Dioxide 27.0, Anion Gap 12, BUN 32 H, Creatinine 1.31 H, Estim Creat Clear Calc 40.61, Est GFR (MDRD) Af Amer 53 L, Est GFR (MDRD) Non-Af 43 L, BUN/Creatinine Ratio 24.4 H, Glucose 163 H, Calcium 8.9 03/23/19 05:35: WBC 15.0 H, RBC 4.89, Hgb 12.9, Hct 40.2, MCV 82.2, MCH 26.4 L, MCHC 32.1, RDW Std Deviation 40.7, RDW Coeff of Be 13.7, Plt Count 396, MPV 10.1, Immature Gran % (Auto) 0.500, Neut % (Auto) 57.4, Lymph % (Auto) 28.3, [place] % (Auto) 8.8, Eos % (Auto) 4.3, Baso % (Auto) 0.7, Absolute Neuts (auto) 8.6 H, Absolute Lymphs (auto) 4.24, Nucleated RBC % 0 03/23/19 05:46: POC Glucose 201 H 03/23/19 08:22: POC Glucose 184 H Current Medications Acetaminophen (Tylenol) 650 mg RECTAL Q4H PRN PRN PRN Reason: Mild Pain (1-3)/Temp > 100.7 F Albuterol Sulfate (Ventolin Aerosols) 2.5 mg INHALATION Q2H PRN PRN PRN Reason: SOB/Wheezing Allopurinol (Zyloprim) 300 mg PO DAILY@0800 [facility] Last Admin: 03/23/19 08:29 Dose: 300 mg Documented by: Atorvastatin Calcium (Lipitor) 20 mg PO QHS [facility] Last Admin: 03/22/19 21:37 Dose: 20 mg Documented by: Calamine/Phenol (Calmoseptine Ointment) 1 applic TOPICAL BID [facility]; Protocol Last Admin: 03/22/19 21:36 Dose: 1 applic Documented by: Carvedilol (Coreg) 3.125 mg PO BID [facility] Last Admin: 03/23/19 09:04 Dose: 3.125 mg Documented by: Dextrose (D50w Syringe) 0 gm IV X1 PRN; Protocol PRN Reason: Hypoglycemia Enoxaparin Sodium (Lovenox) 40 mg SC DAILY@1000 [facility] Last Admin: 03/23/19 09:02 Dose: 40 mg Documented by: Furosemide (Lasix) 40 mg PO DAILY [facility] Last Admin: 03/23/19 09:02 Dose: 40 mg Documented by: Glucagon () 1 mg IM .X1 PRN PRN Reason: Hypoglycemia Haloperidol (Haldol) 2 mg PO TID PRN PRN PRN Reason: nausea and vomitting Hydralazine HCl (Apresoline Iv) 10 mg IV Q4H PRN PRN PRN Reason: SBP>180 mmhg Hydralazine HCl (Apresoline) 25 mg PO TID [facility] Last Admin: 03/23/19 05:47 Dose: 25 mg Documented by: Hydroxychloroquine Sulfate (Plaquenil) 200 mg PO BIDCM [facility] Last Admin: 03/23/19 08:29 Dose: 200 mg Documented by: Sodium Chloride () 250 mls @ 15 mls/hr IV .[id number] PRN PRN Reason: SALINE FLUSH Insulin Glargine (Lantus (Bkc)) 25 units SC DAILY [facility] Last Admin: 03/23/19 09:04 Dose: 25 unit Documented by: Insulin Human Lispro (Humalog Kwikpen (Bkc)) 0 unit SC Q6 [facility]; Protocol Last Admin: 03/23/19 05:47 Dose: 4 u Documented by: Insulin Human Lispro (Humalog Kwikpen (Bkc)) 25 unit SC BIDCM [facility] Last Admin: 03/23/19 08:29 Dose: 25 units Documented by: Levothyroxine Sodium (Synthroid) 75 mcg PO DAILY@0600 [facility] Last Admin: 03/23/19 05:51 Dose: 75 mcg Documented by: Losartan Potassium (Cozaar) 75 mg PO DAILY [facility] Last Admin: 03/23/19 09:02 Dose: 75 mg Documented by: Montelukast Sodium (Singulair) 10 mg PO DAILY [facility] Last Admin: 03/23/19 09:03 Dose: 10 mg Documented by: Nutritional Formula (Lactose Free) (Glucerna Shake) 120 ml PO TIDCM [facility] Last Admin: 03/23/19 08:28 Dose: 120 ml Documented by: Nystatin (Mycostatin Powder) 1 applic TOPICAL BID [facility]; Protocol Last Admin: 03/23/19 09:01 Dose: 1 applic Documented by: Pantoprazole Sodium (Protonix) 40 mg PO DAILY [facility] Last Admin: 03/23/19 09:03 Dose: 40 mg Documented by: Pramipexole Dihydrochloride (Mirapex) 0.5 mg PO QHS [facility] Last Admin: 03/22/19 21:38 Dose: 0.5 mg Documented by: Pregabalin (Lyrica) 225 mg PO BID [facility] Last Admin: 03/23/19 09:01 Dose: 225 mg Documented by: Promethazine HCl (Phenergan) 12.5 mg IV Q6H PRN PRN PRN Reason: Breakthrough Nausea/Vomiting Last Admin: 03/21/19 15:03 Dose: 12.5 mg Documented by: Senna/Docusate Sodium (Senokot-S, Huma-Colace) 2 tablet PO BID PRN PRN PRN Reason: Constipation Sertraline HCl (Zoloft) 25 mg PO DAILY [facility] Last Admin: 03/23/19 09:03 Dose: 25 mg Documented by: Sodium Chloride () 10 - 40 ml IV UD PRN PRN Reason: SALINE FLUSH Last Admin: 03/21/19 06:36 Dose: 20 ml Documented by: Medical Necessity - Tobacco Use Smoking Status: Never smoker Assessment/Plan All Active Problems (Last Reviewed 03/06/19 @ 06:45 by Jacques Santos MD) Acute respiratory failure with hypoxia (Acute) Flash pulmonary edema (Acute) Acute respiratory failure (Acute) NSTEMI (non-ST elevated myocardial infarction) (Resolved) Acute kidney injury (Acute) Hyponatremia (Acute) Noninfective enterocolitis (Acute)
--- NOTE | 2019-03-23 10:51 | CASEMGMT ---
Therapy spoke with SW and said patient did well today and she would prefer to go home with home health. She has had [facility] in the past and would like them again. SW also spoke with patient about Palliative Care. She said she is active with Palliative Care currently. SW called Palliative Care and patient is active. SW also notified physician. AJ called Carley with [facility] and made a referral for home PT, OT, and Senior [facility]. Mckayla SNEED MSW
--- NOTE | 2019-03-23 11:00 | DCINST_ITS ---
You will use the following diet at home:: Cardiac, Fluid restricted (specify 2000 mls, 1500 mls) - 1500 Your food should be the consistency of: Regular Your liquids should be the consistency of: Regular/Thin Discharge Activity: Return to Normal Activity Call your doctor if you observe: Fever of 101 or Higher, Shortness of breath, Dizziness, Fainting spells, Swelling in the ankles, Chest pain, Increased palpitations (irregular heartbeat) Additional Instructions: Check a BMP and a CBC in 3-5 days with your PCP to monitor kidney function as well as blood counts. Also the dosage of your furosemide and carvedilol were doubled so you will also need to have your PCP monitor your blood pressure. Allergies/Adverse Reactions: Allergies ciprofloxacin [From Cipro] Allergy (Verified 03/05/19 23:18) Shortness of breath ciprofloxacin HCl [From Cipro] Allergy (Verified 03/05/19 23:18) Shortness of breath cyclobenzaprine [From Flexeril] Allergy (Verified 03/05/19 23:18) Rash cyclobenzaprine HCl [From Flexeril] Allergy (Verified 03/05/19 23:18) Rash ketorolac tromethamine [From Toradol] Allergy (Verified 03/05/19 23:18) Chest tightness sulfamethoxazole [From Bactrim] Allergy (Verified 03/05/19 23:18) Itching trimethoprim [From Bactrim] Allergy (Verified 03/05/19 23:18) Itching metformin Adverse Reaction (Verified 03/05/19 23:18) Other headache valacyclovir HCl [From Valtrex] Adverse Reaction (Verified 03/05/19 23:18) Other Medications to take at Discharge Ropinirole HCl [Requip] 1 mg PO QHS 05/07/16 proMETHazine tablet [Phenergan tablet] 25 mg PO Q6H PRN PRN #10 tab 08/17/18 Allopurinol 300 mg PO DAILY 09/17/18 Haloperidol 2 mg PO TID PRN PRN 09/17/18 Levothyroxine Sodium 75 mcg PO DAILY 09/17/18 Simvastatin 40 mg PO QHS 09/17/18 Candesartan Cilexetil [Atacand] 16 mg PO DAILY 11/30/18 Hydrocodone Bitart/Apap 5-325 [[place] 5/325] 1 tab PO Q6H PRN PRN 11/30/18 Hydroxychloroquine [Plaquenil] 200 mg PO BIDCM 11/30/18 Montelukast Sodium 10 mg PO DAILY 11/30/18 Omeprazole 40 mg PO DAILY 11/30/18 Pregabalin [Lyrica] 225 mg PO BID 11/30/18 sertraline 50 mg tablet 25 mg PO DAILY tab 01/09/19 Insulin Glargine,Hum.rec.anlog [[place]jeo Solostar] 25 unit SQ DAILY 03/21/19 Insulin Regular, Human [Humulin R] 25 unit IJ BID 03/21/19 Nystatin Powder [Mycostatin Powder] 1 applic TOPICAL BID 03/21/19 Carvedilol [Coreg] 6.25 mg PO BID #0 03/23/19 Furosemide [Lasix] 40 mg PO DAILY #30 tab 03/23/19 Primary Care Physician: Devan Parks MD [Primary Care Provider] - Please follow up with your Primary Care Physician in: 3-5 days Test Results: Test results from this visit will be discussed in further detail at your follow- up appointment, if applicable.
--- NOTE | 2019-03-23 11:03 | PCM.DC.SUM ---
Discharge Date and Diagnosis Date of Admission: 03/18/19 Date of Discharge: 03/23/19 - Secondary Discharge Diagnosis Chronic Problems (Last Reviewed 03/06/19 @ 06:45 by Jacqeus Santos MD) Fibromyalgia (Chronic) Congestive heart failure (Chronic) Type 2 diabetes mellitus (Chronic) 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) Diabetic gastroparesis (Chronic) Weakness of both lower extremities (Chronic) GERD (gastroesophageal reflux disease) (Chronic) Seizure disorder (Chronic) Paroxysmal atrial fibrillation (Chronic) Chronic pain syndrome (Chronic) Takotsubo cardiomyopathy (Chronic) Iron deficiency anemia (Chronic) Depression (Chronic) Morbid obesity with BMI of 40.0-44.9, adult (Chronic) HLD (hyperlipidemia) (Chronic) Benign essential HTN (Chronic) Hospital Course and Treatment Imaging Results: CXR: FINDINGS: Mild increase in interstitial and vascular markings, right greater than left. There is no demonstrated pleural abnormality. Normal size heart. Normal mediastinum and judith. Normal visualized pulmonary arteries. Normal visualized aortic arch and descending thoracic aorta. Normal visualized thoracic spine. Normal visualized ribs, clavicles, and shoulders. There is no demonstrated abnormality of the visualized soft tissue structures of the upper abdomen. CT Brain: IMPRESSION: Mild chronic sinusitis of the left maxillary and sphenoid sinuses. There is no evidence of intracranial hemorrhage or acute infarct. Findings are similar to the previous study. MRI Brain: IMPRESSION: Sinusitis. Empty sella. No acute disease. Consults: ICU/Pulmonology Operations: None, - - EGD Procedures: 2-D Echocardiogram - Interpretation Summary The study was technically difficult. Diluted definity 4ml given slow IV push to enhance endocardial definition. The estimated ejection fraction is 55 %. Stage 2 diastolic dysfunction. The left atrium is mildly enlarged. Trivial tricuspid valve insufficiency. Bicuspid aortic valve. The study was technically difficult. Summary of Care Provided: Per HPI: The patient is a 63 year old F with multiple comorbidities and recurrent admission, last one on 03/06/2019 for flash pulmonary edema associated with acute respiratory failure came to ED with severe shortness of breath, cough with clear sputum similar to the previous admission. This time, she did not respond to BiPAP and eventually was intubated after etomidate and succinylcholine by ER physician. As per ER physician, there is no history of cough. Chest x-ray suggestive of pulmonary edema. When I saw the patient, patient already was intubated on ventilator. Bilateral lower extremity swelling. During last admission, patient had cardiac cath because of non-STEMI which showed EF 60% by LV gram, and no significant coronary stenosis found. Patient last echo in January 2019 reported as EF 65% with evidence of diastolic dysfunction. No regional wall motion abnormality. Normal RV size and systolic function. Left atrium moderately enlarged. Mild mitral valve prolapse, posterior leaflet with trivial MR. Trivial TR not able to estimate RV systolic pressure. No pericardial effusion. Patient was discharged on Lasix. Hospital Course: 1. Acute hypoxic respiratory failure secondary to acute on chronic diastolic heart failure with pulmonary edema/elevated troponin/A. fib/HTN/NGS-70-yvil-old female who was admitted on 719 for flash pulmonary edema and discharged with Lasix. She presented with a similar presentation and was initially admitted to the ICU on BiPAP and then was intubated. She was started on IV Lasix and diuresed. She was also found to have a leukocytosis initially and was started on antibiotics with Zosyn however a thorough infectious work-up demonstrated no acute infection and therefore the antibiotics were discontinued after 4 days. Also in the ICU she did have an episode of expressive aphasia that was worked up with a CT scan of the brain and an MRI of her brain, both of which were negative other than a mild sinusitis. She was transferred to the PCU and on the day of discharge she was satting 97% on room air, and she worked with PT/OT and was able to walk 250 feet and was fairly independent with a standby assist of 1. She does have palliative care at home and will be discharged with home health care. Of note her blood pressure initially was extremely elevated and was thought to be the cause of her flash pulmonary edema, she was increased on her Lasix from 20 mg p.o. to 40 mg p.o. which she was discharged on, also she was continued on her Coreg and started on 3 times daily hydralazine. I feel like taking the medication 3 times a day will be challenging for her and therefore will increase her Coreg to 6.25 mg p.o. twice daily and discontinue the hydralazine. She will need to follow-up with her primary care physician to 3-5 days for routine lab work including a BMP to monitor renal function given the increase in her Lasix. Her creatinine has stayed stable, however she is up to 1.31 today. Also she does have a white count of 15 though she is afebrile, so would recommend having a CBC done as an outpatient as well. Her troponin did bump to 0.57 and come down to 1.45, this was felt to be demand ischemia secondary to her hypertension and her acute hypoxic respiratory failure. She did have an echo which demonstrated an EF of 55% with stage II diastolic dysfunction without any regional wall motion abnormality which is similar to her previous echo in January. I discussed the plan with the patient and the possible option of going to a detention facility for rehab, however she would much rather go home today than stay another day. I did discuss the risks and benefits of going home versus staying and she would prefer to go home since she really has palliative care as well as now getting home health set up. 2. Her other medical diagnoses were evaluated and her home medications were continued where appropriate - Physical Exam General: Alert, Oriented x3, Cooperative, No apparent distress HEENT: Atraumatic, PERRLA, EOMI, Normocephalic Oral: Moist Mucosa Neck: Supple, No JVD Lungs: Clear to auscultation, Normal air movement, No rhonchi, No wheeze, No rales, Diminished Cardiovascular: Regular rate, Regular Rhythm, Normal S1, Normal S2, No murmurs Abdomen: Soft, Non Tender, Non-Distended, No Hepato-splenomegaly Extremities: No edema, Capillary Refill Less than 3 Seconds Skin: No rashes, No breakdown Neurological: Neuro grossly intact, Sensory exam intact to light touch and pain Psych/Mental Status: Normal Affect, Appropriate Vital Signs Temp Pulse Resp BP Pulse Ox 98.0 F 81 16 128/69 H 97 03/23/19 09:00 03/23/19 09:00 03/23/19 09:00 03/23/19 09:00 03/23/19 09:00 Oxygen Flow Rate (L/min) 2 Oxygen Delivery Method Room Air Weight: 255 lb 8.252 oz Body Mass Index (BMI) 43.1 Finger Stick Blood Glucose 279 Intake and Output for Last 24 Hours 03/21/19 03/22/19 03/23/19 23:59 23:59 23:59 Intake Total 665.6 / 665.6 1580 / 1580 240 / 240 Output Total 1600 / 1600 Balance -934.4 / -934.4 1580 / 1580 240 / 240 Microbiology Past 72 Hours 03/18/19 21:25 Blood Culture - Preliminary Blood Culture (Wb) #2 - No Site/Description Given No growth in 48 hours. 03/18/19 21:00 Blood Culture - Preliminary Blood Culture (Wb) - Right Wrist No growth in 48 hours. 03/19/19 11:20 Gram Stain - Final Sputum, Induced/Lukens Respiratory Culture - Final Culture exhibits no growth. 03/19/19 08:25 Urine Culture - Final Urine Catheter - Catheter Culture exhibits no growth. Laboratory Tests Past 24 Hrs 03/23/19 03/23/19 05:10 05:35 WBC 15.0 H RBC 4.89 Hgb 12.9 Hct 40.2 MCV 82.2 MCH 26.4 L MCHC 32.1 RDW Std Deviation 40.7 RDW Coeff of Be 13.7 Plt Count 396 MPV 10.1 Immature Gran % (Auto) 0.500 Neut % (Auto) 57.4 Lymph % (Auto) 28.3 Dixie % (Auto) 8.8 Eos % (Auto) 4.3 Baso % (Auto) 0.7 Absolute Neuts (auto) 8.6 H Absolute Lymphs (auto) 4.24 Nucleated RBC % 0 Sodium 137 Potassium 3.1 L Chloride 98 Carbon Dioxide 27.0 Anion Gap 12 BUN 32 H Creatinine 1.31 H Estim Creat Clear Calc 40.61 Est GFR (MDRD) Af Amer 53 L Est GFR (MDRD) Non-Af 43 L BUN/Creatinine Ratio 24.4 H Glucose 163 H Calcium 8.9 POC Glucose 03/23/19 03/23/19 03/23/19 08:22 05:46 00:12 POC Glucose 184 H 201 H 166 H 03/22/19 03/22/19 16:57 11:35 POC Glucose 313 H 280 H Discharge Activity: Return to Normal Activity Call your doctor if you observe: Fever of 101 or Higher, Shortness of breath, Dizziness, Fainting spells, Swelling in the ankles, Chest pain, Increased palpitations (irregular heartbeat) Home Medications: Medications to take at Discharge Ropinirole HCl [Requip] 1 mg PO QHS 05/07/16 proMETHazine tablet [Phenergan tablet] 25 mg PO Q6H PRN PRN #10 tab 08/17/18 Allopurinol 300 mg PO DAILY 09/17/18 Haloperidol 2 mg PO TID PRN PRN 09/17/18 Levothyroxine Sodium 75 mcg PO DAILY 09/17/18 Simvastatin 40 mg PO QHS 09/17/18 Candesartan Cilexetil [Atacand] 16 mg PO DAILY 11/30/18 Hydrocodone Bitart/Apap 5-325 [Carlin 5/325] 1 tab PO Q6H PRN PRN 11/30/18 Hydroxychloroquine [Plaquenil] 200 mg PO BIDCM 11/30/18 Montelukast Sodium 10 mg PO DAILY 11/30/18 Omeprazole 40 mg PO DAILY 11/30/18 Pregabalin [Lyrica] 225 mg PO BID 11/30/18 sertraline 50 mg tablet 25 mg PO DAILY tab 01/09/19 Insulin Glargine,Hum.rec.anlog [Toujeo Solostar] 25 unit SQ DAILY 03/21/19 Insulin Regular, Human [Humulin R] 25 unit IJ BID 03/21/19 Nystatin Powder [Mycostatin Powder] 1 applic TOPICAL BID 03/21/19 Carvedilol [Coreg] 6.25 mg PO BID #0 03/23/19 Furosemide [Lasix] 40 mg PO DAILY #30 tab 03/23/19 Primary Care Physician: Devan Parks MD [Primary Care Provider] - Please follow up with your Primary Care Physician in: 3-5 days Disposition: Home with Home Health Minutes spent on discharge:: 35 Patient Condition:: Stable Medical Necessity - Tobacco Use Smoking Status: Never smoker Meaningful Use Info Meaningful Use Diagnoses (Choose all that apply): CHF - CHF MARGARETH/ARB ordered at discharge?: Yes Documented LVEF (%): 55 Code Visit Inpatient E&M: 59544 Disch Hosp
[2019-03-23 11:36] LABS: Bedside Glucose 209 mg/dL (70-110)
--- NOTE | 2019-03-23 12:44 | CASEMGMT ---
Per Cally MARQUEZ, pt does not qualify for home oxygen at this time. Nilson MARQUEZ CM
--- NOTE | 2019-03-24 13:52 | CASEMGMT ---
RN ALFREDO PHONE CALL DC DATE: 03/23/19 DC Disposition: Home with [facility] Diagnosis on Discharge: CHF, Diabetes LACE/STRATA: 30/11 Attempted call to patient. No answer and no machine picked up. Call to [facility] - pt is set up to be seen tomorrow. Suellen CARDOZON RN AC
== END 2019-03-23 14:50 | disposition home health service (06) | DRG 208 ==
LOC: ED 18:16 → ICU 21:09 → PCU 03-23 07:17 → ICU 03-23 16:15 → PCU 03-23 16:15
PROVIDERS: Internal Medicine Critical Care Medicine; Student in an Organized Health Care Education/Training Program; Admitting Provider Internal Medicine; Emergency Provider Emergency Medicine; Family Provider Family Medicine; PCP Family Medicine; Referring Provider Internal Medicine; Visit Provider Family Medicine
DX: J96.01 Acute respiratory failure with hypoxia (principal); I50.33 Acute on chronic diastolic (congestive) heart failure; I21.4 Non-ST elevation (NSTEMI) myocardial infarction; I13.0 Hypertensive heart and chronic kidney disease with heart failure and stage 1 through stage 4 chronic kidney disease, or unspecified chronic kidney disease; Z68.41 Body mass index [BMI] 40.0-44.9, adult; M79.7 Fibromyalgia; E66.01 Morbid (severe) obesity due to excess calories; E78.5 Hyperlipidemia, unspecified; K21.9 Gastro-esophageal reflux disease without esophagitis; G89.4 Chronic pain syndrome; E11.43 Type 2 diabetes mellitus with diabetic autonomic (poly)neuropathy; K31.84 Gastroparesis; F32.9 Major depressive disorder, single episode, unspecified; I48.0 Paroxysmal atrial fibrillation; E03.9 Hypothyroidism, unspecified; M10.9 Gout, unspecified; G40.909 Epilepsy, unspecified, not intractable, without status epilepticus; N18.3 Chronic kidney disease, stage 3 (moderate); Z79.4 Long term (current) use of insulin
CPT/HCPCS: 31500; 31720; 36415; 36600; 70450; 70551; 71045; 80048; 80061; 81001; 82803; 82962; 83735; 83880; 84443; 84484; 85025; 87040; 87070; 87086; 87205; 87449; 87641; 93005; 93306; 94002; 94003; 94640; 94660; 95831; 97162; 97166; 97530; 97802; 99251; 99285; J7030; Q9957; A4216; C8929; G0463; J1940

== ENCOUNTER 2019-04-10 23:23 | Emergency (ER) | payer MEDICARE, SELFPAY ==
[2019-03-30 10:20] VITALS: BMI 41.9
[2019-04-10 23:26] VITALS: BP 199/95; PULSE 83; RESP 20; TEMP 36.4; O2SAT 91; BMI 42.6
[2019-04-10 23:31] VITALS: BP 169/123; PULSE 88; RESP 20; O2SAT 90
[2019-04-10 23:36] VITALS: O2SAT 96
--- NOTE | 2019-04-10 23:38 | RAD_ITS ---
HISTORY: SOB for a few hours pt states/hx of SOB EXAMINATION/TECHNIQUE: XR Chest 1 View: Portable COMPARISON: 03/19/2019 FINDINGS: Interval extubation. Right basilar asymmetric hazy opacity. A residual right basilar small effusion is possible. Normal heart size. No overt vascular congestion. No pulmonary consolidation. Left lung appears clear. No pneumothorax. Atherosclerotic thoracic aorta. RAD/Chest 1 View (Portable) IMPRESSION: 1. Interval extubation. Possible residual small right pleural effusion. 2. No pneumonia or overt CHF identified. at 0038 Reported and signed by: Nick Sandoval MD Electronically Signed: Nick Sandoval, at 0:37 EDT Tel , Service support ,
--- NOTE | 2019-04-10 23:39 | EKG12_ITS ---
Test Reason : Blood Pressure : / mmHG Vent. Rate : 085 BPM Atrial Rate : 085 BPM P-R Int : 194 ms QRS Dur : 094 ms QT Int : 420 ms P-R-T Axes : 021 -34 060 degrees QTc Int : 499 ms Normal sinus rhythm Left axis deviation Prolonged QT Abnormal ECG Confirmed by ABIMAEL CURRY, CAROLE ([id number]), newspaper managing editor VIDAL MCDERMOTT ([id number]) on 04/13/2019 11:54:01 AM Referred By: TAMMY Confirmed By:CAROLE VARGHESE MD
--- NOTE | 2019-04-10 23:42 | ED.VIS.GEN ---
History of Present Illness Chief Complaint: Nausea/Vomiting Detail of Chief Complaint: Nausea, vomiting, chest heaviness Informant: Patient Onset: Today Context: Gradual Onset Current Severity: Mild Maximum Severity: Mild Narrative: Patient reports nausea and vomiting that started approximately half an hour ago. This was followed by chest heaviness and mild shortness of breath. She does have a history of gastroparesis with similar symptoms. Patient tried to take her oral Haldol, but vomited back up. She states that typically she does better with the liquid Haldol, but this last time she had her medication filled they had to give her the tablets and she vomited that back up. She recently was admitted to the hospital for congestive heart failure. She is very clear tonight that her symptoms started with nausea and vomiting which then led to the chest heaviness. Past Medical History - Allergies and Home Meds Allergies/Adverse Reactions: Allergies ciprofloxacin [From Cipro] Allergy (Verified 04/10/19 23:26) Shortness of breath ciprofloxacin HCl [From Cipro] Allergy (Verified 04/10/19 23:26) Shortness of breath cyclobenzaprine [From Flexeril] Allergy (Verified 04/10/19 23:26) Rash cyclobenzaprine HCl [From Flexeril] Allergy (Verified 04/10/19 23:26) Rash ketorolac tromethamine [From Toradol] Allergy (Verified 04/10/19 23:26) Chest tightness sulfamethoxazole [From Bactrim] Allergy (Verified 04/10/19 23:26) Itching trimethoprim [From Bactrim] Allergy (Verified 04/10/19 23:26) Itching metformin Adverse Reaction (Verified 04/10/19 23:26) Other headache valacyclovir HCl [From Valtrex] Adverse Reaction (Verified 04/10/19 23:26) Other Primary Care Physician: Devan Parks MD [Primary Care Provider] - Surgical History: appendectomy, cholecystectomy Smoking Status: Never smoker - Family History Paternal Family History: Family History (Last Reviewed 03/06/19 @ 05:13 by Jacques Santos MD) Mother Myocardial infarction Father Congestive heart failure Other Diabetes Heart disease Family History: Reports: Heart Disease, - - Bone cancer Maternal Family History: Family History (Last Reviewed 03/06/19 @ 05:13 by Jacques Santos MD) Mother Myocardial infarction Father Congestive heart failure Other Diabetes Heart disease Family History: Reports: COPD, Diabetes, Heart Disease, - - Smoker Review of Systems General: Denies: Chills, Fever Eyes: Denies: Visual changes - bilaterally ENT: Denies: Bilateral ear pain Cardiovascular: Reports: Chest pain. Denies: Palpitations, Heart racing Respiratory: Reports: Dyspnea. Denies: Cough Gastrointestinal: Reports: Abdominal pain, Nausea, Vomiting. Denies: Diarrhea Genitourinary: Denies: Dysuria Musculoskeletal: Denies: Back pain Skin: Denies: Rash Neurological: Denies: Headache Endocrine: Denies: Polyuria, Polydipsia Hematologic: Denies: Easy bruising Allergy: Denies: Uticaria Physical Exam Vital Signs/Narrative: Vital Signs Temp Pulse Resp BP Pulse Ox 04/10/19 23:36 96 04/10/19 23:31 88 20 H 169/123 H 90 04/10/19 23:26 97.5 F L 83 20 H 199/95 H 91 Inital Vital Signs reviewed: Yes General: Well nourished, Well developed Head: Normocephalic Eyes: EOMI ENT: Moist mucous membranes Neck: Supple Cardiovascular: Regular rate, Regular rhythm Respiratory: No distress, CTA bilaterally Abdomen: Soft, Nontender, Hypoactive bowel sounds Extremities: Nontender Skin: Normal color Neurological: Alert, Oriented x3 Psychological: Normal affect Diagnostic/Tx/Re-eval Impressions Chest X-Ray 04/10/19 23:38 IMPRESSION: 1. Interval extubation. Possible residual small right pleural effusion. 2. No pneumonia or overt CHF identified. at 0038 Reported and signed by: Nick Sandoval MD Electronically Signed: Nick Sandoval, at 0:37 EDT Tel , Service support , 04/10/19 23:38 Chest 1 View (Portable) [RAD] Stat Laboratory Results 04/10/19 04/10/19 23:45 23:45 WBC 9.6 RBC 4.18 L Hgb 11.4 L Hct 35.2 L MCV 84.2 MCH 27.3 MCHC 32.4 RDW Std Deviation 42.8 RDW Coeff of Be 14.0 Plt Count 233 MPV 9.6 Immature Gran % (Auto) 0.500 Neut % (Auto) 66.9 Lymph % (Auto) 20.7 [place] % (Auto) 8.1 Eos % (Auto) 3.2 Baso % (Auto) 0.6 Absolute Neuts (auto) 6.4 Absolute Lymphs (auto) 1.99 Nucleated RBC % 0 Sodium 137 Potassium 3.8 Chloride 99 Carbon Dioxide 32.0 Anion Gap 6 BUN 16 Creatinine 1.26 H Estim Creat Clear Calc 42.23 Est GFR (MDRD) Af Amer 55 L Est GFR (MDRD) Non-Af 45 L BUN/Creatinine Ratio 12.7 Glucose 242 H Calcium 8.8 Total Bilirubin 0.80 Direct Bilirubin 0.25 AST 16 ALT 18 Alkaline Phosphatase 180 H Troponin I < 0.015 Total Protein 7.5 Albumin 3.2 Globulin 4.3 H Lipase 191 - EKG Initial EKG Interpretation: Sinus Rhythm - Sinus 85 with no acute ischemia. - Medical Decision Making Patient was initially given p.o. Haldol which tends to work best for her at home. On repeat evaluation she still had some mild nausea. She was given a dose of Protonix and a small dose of Phenergan. This time patient feels improved. She will go home and sleep tonight and then resume her regular medications in the morning. ED Disposition - Plan for ED Patient: Disposition: Home or Assisted Living Diagnosis: Vomiting Instructions: VOMITING (5y-Adult), ED Diabetic Gastroparesis Referrals: Devan Parks MD [Primary Care Provider] - 3-5 Days if not improving
[2019-04-10 23:54] LABS: Absolute Lymphocyte Count 1.99 X10^3/uL (0.83-4.51); Absolute Neutrophil Count 6.4 X10^3/uL (2.0-7.7); Basophil# 0.06 X10^3/uL; Basophil% 0.6 % (0-1); Eosinophil# 0.31 X10^3/uL; Eosinophils% 3.2 % (0-5); Hematocrit 35.2 % (37-47); Hemoglobin 11.4 g/dL (12.0-15.0); Lymphocyte # 1.99 X10^3/ul (4.0); Lymphocyte % 20.7 % (19-41); Mean Corp Hgb Conc 32.4 g/dL (32-36); Mean Corpuscular Hgb 27.3 pg (27.0-32.0); Mean Corpuscular Volume 84.2 fL (81-99); Mean Platelet Vol. 9.6 fl (6.2-12.0); Monocyte# 0.78 X10^3/uL; Monocyte% 8.1 % (0-10); NRBC Flagged by Analyzer 0 % (0-5); Neutrophil # 6.42 X10^3/uL (2.7-7.7); Neutrophil % 66.9 % (47-70); Platelet Count 233 K/mm3 (150-450); RBC Distribution Width SD 42.8 fl (35.1-43.9); Red Blood Count 4.18 M/mm3 (4.2-5.4); White Blood Count 9.6 K/mm3 (4.4-11.0)
[2019-04-11] MEDS: Haloperidol Lactate 10 MG/5 ML UDC PO
[2019-04-11 00:10] LABS: AST(SGOT) 16 U/L (15-37); Alanine Aminotransfer ALT/SGPT 18 U/L (13-56); Albumin, Serum 3.2 g/dL (3.2-5.0); Alkaline Phosphatase 180 U/L (45-117); Anion Gap 6 (5-15); BUN 16 mg/dL (7-18); BUN/Creat Ratio 12.7 RATIO (10-20); Bilirubin, Direct 0.25 mg/dL (0.00-0.30); Calcium,Total 8.8 mg/dL (8.5-10.1); Chloride 99 mmol/L (98-107); Creatinine, Serum 1.26 mg/dL (0.55-1.02); EST Glomerular Filtration Rate 45 mL/min (>60); Est Glom Filt Rate - Afr Amer 55 mL/min (>60); Estimated Creatinine Clearance 42.23 ml/min; Globulin 4.3 g/dL (2.2-4.2); Glucose 242 mg/dL (74-106); Lipase 191 U/L (73-393); Potassium 3.8 mmol/L (3.5-5.1); Protein, Total 7.5 g/dL (6.4-8.2); Sodium Level 137 mmol/L (136-145)
[2019-04-11 01:07] VITALS: PULSE 64; RESP 16; O2SAT 98
[2019-04-11] MEDS: proMETHazine 25 MG/ML Syringe 6.25 MG IV (01:08)
[2019-04-11 02:20] VITALS: BP 156/71; PULSE 71; RESP 18; O2SAT 94
== END 2019-04-11 02:20 | disposition home or self-care (01) ==
PROVIDERS: Emergency Provider Emergency Medicine; Family Provider Family Medicine; PCP Family Medicine
DX: R11.2 Nausea with vomiting, unspecified (principal); R07.89 Other chest pain; R06.00 Dyspnea, unspecified; R10.9 Unspecified abdominal pain; E11.43 Type 2 diabetes mellitus with diabetic autonomic (poly)neuropathy; K31.84 Gastroparesis; I50.9 Heart failure, unspecified; Z90.49 Acquired absence of other specified parts of digestive tract; Z79.4 Long term (current) use of insulin; Z79.899 Other long term (current) drug therapy
CPT/HCPCS: 71045; 80048; 80076; 83690; 84484; 85025; 93005; 96365; 96375; 99285; J7050; A4216

== ENCOUNTER 2019-05-22 09:26 | Emergency (ER) | payer MEDICARE, SELFPAY ==
[2019-05-22 09:26] VITALS: BP 167/88; PULSE 74; RESP 16; TEMP 36.4; O2SAT 94; BMI 43.7
[2019-05-22 09:32] VITALS: BP 197/60; PULSE 66; RESP 21; O2SAT 97
--- NOTE | 2019-05-22 09:35 | EKG12_ITS ---
Test Reason : CP Blood Pressure : / mmHG Vent. Rate : 070 BPM Atrial Rate : 070 BPM P-R Int : 166 ms QRS Dur : 094 ms QT Int : 420 ms P-R-T Axes : 011 -34 034 degrees QTc Int : 453 ms Normal sinus rhythm Left axis deviation Poor R-wave Progression Abnormal ECG Confirmed by JOSE MANUEL CURRY, SHAHIDA ([id number]), online content editor ADAMS GOODEN ([id number]) on 05/26/2019 10:18:46 AM Referred By: SP/GILBERTO Confirmed By:SHAHIDA RICHARD MD
--- NOTE | 2019-05-22 09:35 | RAD_ITS ---
STUDY: X-RAY CHEST REASON FOR EXAM: Female, 63 years old. Chest pain. Difficulty swallowing. TECHNIQUE: Single AP portable view of the chest. COMPARISON: Comparison is made with prior study dated April 10, 2019. FINDINGS: EKG electrodes are seen. Stable mild increased markings at the lung bases suggestive of mild scarring and/or atelectasis. There is no demonstrated pleural abnormality. There is mild cardiac enlargement. Normal mediastinum and judith. Normal visualized pulmonary arteries. There is atherosclerotic calcification of the aortic arch with tortuosity. Normal visualized thoracic spine. There is degenerative osteoarthritis of the bilateral shoulders. There is no demonstrated abnormality of the visualized soft tissue structures of the upper abdomen. RAD/Chest 1 View (Portable) IMPRESSION: Stable mild increased markings at the lung bases suggestive of atelectasis and/or linear scarring. Electronically Signed: Tristan De La Garza, at 10:30 EDT , Service support ,
--- NOTE | 2019-05-22 09:37 | ED.VIS.GEN ---
History of Present Illness Chief Complaint: Chest Pain Informant: Patient Onset: Today Context: Sudden Onset Timing: Continuous Quality: Aching Location: Central mid chest Current Severity: Mild Maximum Severity: Moderate Worsened by: .Nothing Relieved by: Nothing Associated Symptoms: None Narrative: Patient is a 63-year-old woman with multiple medical problems including diabetes, hypertension, hypercholesterolemia, A. fib, CHF and takotsubo cardiomyopathy syndrome. States he was awakened from sleep because of mid central chest aching that awoke her from sleep. She had no radiation associated symptoms. She took Pepto-Bismol with no effect. She denies black or maroon stool. She denies fever or chills. She has an intermittent cough, which is chronic. She denies leg pain or swelling. She does have remote history of PE. She was on anticoagulant. She is no longer on anticoagulant. She also has history of atrial fibrillation based on prior records. She denies orthopnea or PND. Prior similar symptoms: No Recent Illness/Hospitalization: No - Past Medical History (1) History of type 1 diabetes mellitus Status: Acute (2) Acute kidney injury Status: Acute (3) Hyponatremia Status: Acute (4) Benign essential HTN Status: Chronic (5) Chronic pain syndrome Status: Chronic (6) Congestive heart failure Status: Chronic (7) Depression Status: Chronic (8) Diabetic gastroparesis Status: Chronic (9) Fibromyalgia Status: Chronic (10) HLD (hyperlipidemia) Status: Chronic (11) Iron deficiency anemia Status: Chronic (12) Morbid obesity with BMI of 40.0-44.9, adult Status: Chronic (13) Paroxysmal atrial fibrillation Status: Chronic (14) Seizure disorder Status: Chronic (15) Takotsubo cardiomyopathy Status: Chronic Past Medical History - Allergies and Home Meds Allergies/Adverse Reactions: Allergies ciprofloxacin [From Cipro] Allergy (Verified 04/10/19 23:26) Shortness of breath ciprofloxacin HCl [From Cipro] Allergy (Verified 04/10/19 23:26) Shortness of breath cyclobenzaprine [From Flexeril] Allergy (Verified 04/10/19 23:26) Rash cyclobenzaprine HCl [From Flexeril] Allergy (Verified 04/10/19 23:26) Rash ketorolac tromethamine [From Toradol] Allergy (Verified 04/10/19 23:26) Chest tightness sulfamethoxazole [From Bactrim] Allergy (Verified 04/10/19 23:26) Itching trimethoprim [From Bactrim] Allergy (Verified 04/10/19 23:26) Itching metformin Adverse Reaction (Verified 04/10/19 23:26) Other headache valacyclovir HCl [From Valtrex] Adverse Reaction (Verified 04/10/19 23:26) Other Primary Care Physician: Devan Parks MD [Primary Care Provider] - Prior records reviewed: Yes Surgical History: appendectomy, cholecystectomy Lives: Alone Smoking Status: Never smoker Drugs: None - Family History Paternal Family History: Family History (Last Reviewed 03/06/19 @ 05:13 by Jacques Santos MD) Mother Myocardial infarction Father Congestive heart failure Other Diabetes Heart disease Family History: Reports: Heart Disease, - - Bone cancer Maternal Family History: Family History (Last Reviewed 03/06/19 @ 05:13 by Jacques Santos MD) Mother Myocardial infarction Father Congestive heart failure Other Diabetes Heart disease Family History: Reports: COPD, Diabetes, Heart Disease, - - Smoker Review of Systems General: Denies: Chills, Fever, Malaise, Sweats, Weight loss Eyes: Denies: Visual changes - bilaterally, Blurred Vision - bilaterally, Diplopia ENT: Denies: Rhinorrhea, Sore throat Cardiovascular: Reports: Chest pain Respiratory: Denies: Dyspnea, Cough, Dyspnea on exertion Gastrointestinal: Denies: Abdominal pain, Nausea, Vomiting, Diarrhea, Melena, Hematochezia Genitourinary: Denies: Dysuria, Hematuria, Frequency Musculoskeletal: Denies: Myalgias, Arthralgias, Neck pain, Back pain, Swelling, Extremity Pain, -, - Skin: Denies: Rash, Wounds Neurological: Reports: Weakness. Denies: Headache, Parasthesia, Numbness Endocrine: Denies: Polyuria, Polydipsia Hematologic: Denies: Easy bruising, Easy bleeding Allergy: Denies: Uticaria, Swelling of the mouth Physical Exam Vital Signs/Narrative: Vital Signs Temp Pulse Resp BP Pulse Ox 05/22/19 09:32 66 21 H 197/60 H 97 05/22/19 09:26 97.6 F L 74 16 167/88 H 94 Inital Vital Signs reviewed: Yes General: Well nourished, Well developed, Obese, No Acute Distress Head: Normocephalic, Atraumatic Eyes: Perrl, EOMI. Negative for: Pale conjunctiva, Scleral icterus ENT: Moist mucous membranes, No rhinorrhea Neck: Supple, Nontender, No lymphadenopathy, No JVD, - Cardiovascular: Regular rate, Regular rhythm, No murmurs, Normal S1, Normal S2 Respiratory: No distress, CTA bilaterally, Chest nontender Abdomen: Soft, Nondistended, Normal bowel sounds, No masses, Tender - Epigastric region. Negative for: Nontender, Guarding, Rebound tenderness, Hepatomegaly, Splenomegaly, Mass, Pulsatile mass, Ventral hernia, Umbilical hernia Rectal: Deferred Back: Nontender, Normal Inspection Extremities: Nontender, No edema, - - There is no asymmetry, swelling, discoloration, leg vein distention, palpable cords or tenderness along the distribution of the deep venous system. Skin: Normal color, No rash, - - Old scars noted upper extremity secondary to anticoagulant Neurological: Alert, Oriented x3, Cranial nerves II-XII grossly intact, Normal Strength, Normal Sensation Psychological: Depressed Diagnostic/Tx/Re-eval Chest X-Ray - ED: 1 View, Read by ED Physician, Unchanged - Unchanged from April 10, 2019. Time of interpretation 1022, Normal, Heart, Mediastinum, Bony Structures, No Acute Disease, Chronic Changes Impressions Chest X-Ray 05/22/19 09:35 IMPRESSION: Stable mild increased markings at the lung bases suggestive of atelectasis and/or linear scarring. Electronically Signed: Tristan De La Garza, at 10:30 EDT , Service support , 05/22/19 09:35 Chest 1 View (Portable) [RAD] Stat Laboratory Results 05/22/19 05/22/19 05/22/19 09:48 10:10 10:10 WBC 7.7 RBC 4.36 Hgb 12.1 Hct 37.3 MCV 85.6 MCH 27.8 MCHC 32.4 RDW Std Deviation 44.2 H RDW Coeff of Be 14.2 Plt Count 243 MPV 10.1 Sodium 139 Potassium 4.2 Chloride 107 Carbon Dioxide 30.0 Anion Gap 2 L BUN 16 Creatinine 1.07 H Estim Creat Clear Calc 49.72 Est GFR (MDRD) Af Amer 66 Est GFR (MDRD) Non-Af 55 L BUN/Creatinine Ratio 15.0 Glucose 216 H Calcium 9.7 Troponin I < 0.015 POC Glucose 211 H Chest x-ray revealed no acute findings. Work-up is remarkable elevated glucose of 216. Will reassess. - Rhythm Strip Rhythm Strip: Sinus Rhythm Rate: 72 Ectopy: None - EKG Initial EKG Interpretation: Sinus Rhythm - Sinus rhythm with a ventricular rate of 70. ID interval is 136 ms. QS duration 94 ms. QT duration 420 ms. [place] is to the left. - Medical Decision Making EKG was obtained to assess for acute ischemia. Since patient had pain for approximately 7 continuous hours troponin was obtained. Because she is diabetic basic metabolic panel was obtained to assess glucose as well as renal function since there is a history of end-stage renal disease not on dialysis. CBC was obtained to assess H&H. Chest x-ray was obtained to assess for congestive heart failure, pneumonia or other noncardiac causes. Dr. Ellison was paged to discuss her case. She reports no improvement with GI cocktail. Will order nitroglycerin. Patient reports no improvement with nitroglycerin. She did have a cardiac catheterization in February which revealed normal LV function and normal coronaries. Case was discussed with her hammer adjuster. She also had a CT of her chest to assess her great vessels and there was no abnormality noted. With heart score of 2 and normal coronaries and normal troponin will discharge home to follow-up with her hammer adjuster. ED Disposition - Plan for ED Patient: Disposition: Home or Assisted Living Diagnosis: Central chest pain Instructions: CHEST PAIN, NonCardiac Referrals: Devan Parks MD [Primary Care Provider] - Son Ellison MD [STAFF PHYSICIAN] - 5-7 Days
[2019-05-22] MEDS: Mag Hydrox/Al Hydrox/Simeth 30 ML UDC PO (09:45)
[2019-05-22 09:56] LABS: Bedside Glucose 211 mg/dL (70-110)
[2019-05-22 10:25] LABS: Hematocrit 37.3 % (37-47); Hemoglobin 12.1 g/dL (12.0-15.0); Mean Corp Hgb Conc 32.4 g/dL (32-36); Mean Corpuscular Hgb 27.8 pg (27.0-32.0); Mean Corpuscular Volume 85.6 fL (81-99); Mean Platelet Vol. 10.1 fl (6.2-12.0); Platelet Count 243 K/mm3 (150-450); RBC Distribution Width CV 14.2 % (11.6-14.6); RBC Distribution Width SD 44.2 fl (35.1-43.9); Red Blood Count 4.36 M/mm3 (4.2-5.4); White Blood Count 7.7 K/mm3 (4.4-11.0)
[2019-05-22 10:40] LABS: Anion Gap 2 (5-15); BUN 16 mg/dL (7-18); Calcium,Total 9.7 mg/dL (8.5-10.1); Chloride 107 mmol/L (98-107); Creatinine, Serum 1.07 mg/dL (0.55-1.02); EST Glomerular Filtration Rate 55 mL/min (>60); Est Glom Filt Rate - Afr Amer 66 mL/min (>60); Estimated Creatinine Clearance 49.72 ml/min; Glucose 216 mg/dL (74-106); Potassium 4.2 mmol/L (3.5-5.1); Sodium Level 139 mmol/L (136-145)
[2019-05-22 12:20] VITALS: BP 165/104; PULSE 76
[2019-05-22] MEDS: Nitroglycerin SL (ED/IMG/CATH) 0.4 MG TABLET SUBLINGUAL (12:20)
--- NOTE | 2019-05-22 12:22 | ED.RN ---
pt up to br and c/o nausea when got back to room. deep harsh cough noted then pt c/o n/v with scant amt bile colored fluid obs. no change in cp after previous meds. rates 11/26. [address] moore aware
[2019-05-22 12:34] VITALS: BP 160/74; PULSE 72; RESP 18; O2SAT 94
--- NOTE | 2019-05-22 12:46 | ED.RN ---
dr barroso in and going over pt's dc. po darell given
[2019-05-22] MEDS: Ondansetron ODT 4 MG Tablet PO (12:51)
== END 2019-05-22 12:51 | disposition home or self-care (01) ==
PROVIDERS: Emergency Provider Emergency Medicine; Family Provider Family Medicine; PCP Family Medicine
DX: R07.89 Other chest pain (principal); E10.43 Type 1 diabetes mellitus with diabetic autonomic (poly)neuropathy; K31.84 Gastroparesis; E10.22 Type 1 diabetes mellitus with diabetic chronic kidney disease; I13.2 Hypertensive heart and chronic kidney disease with heart failure and with stage 5 chronic kidney disease, or end stage renal disease; I50.9 Heart failure, unspecified; N18.6 End stage renal disease; G89.4 Chronic pain syndrome; F32.9 Major depressive disorder, single episode, unspecified; M79.7 Fibromyalgia; E78.00 Pure hypercholesterolemia, unspecified; E66.01 Morbid (severe) obesity due to excess calories; Z68.41 Body mass index [BMI] 40.0-44.9, adult; I48.0 Paroxysmal atrial fibrillation; G40.909 Epilepsy, unspecified, not intractable, without status epilepticus; I51.81 Takotsubo syndrome; Z86.711 Personal history of pulmonary embolism; Z86.2 Personal history of diseases of the blood and blood-forming organs and certain disorders involving the immune mechanism; Z79.4 Long term (current) use of insulin; Z79.899 Other long term (current) drug therapy
CPT/HCPCS: 71045; 80048; 82962; 84484; 85027; 93005; 99285; A4216

== ENCOUNTER 2019-06-20 20:21 | Inpatient (IN) | payer MEDICARE, SELFPAY ==
[2019-06-05 13:49] VITALS: BMI 44.4
[2019-06-20] VITALS (8 sets, daily range): BP systolic 129–222; BP diastolic 81–134; PULSE 99–133; RESP 16–31; TEMP 36.4–36.9; O2SAT 86–96; BMI 47.2; BMI 46.5; BMI 46.6
--- NOTE | 2019-06-20 20:36 | RAD_ITS ---
HISTORY: SUDDEN ONSET SOB, HX OF CHF, HTN, TACOTSUBO, NSTEMI EXAM: XR Chest 1 View: COMPARISON: May 22, 2019 FINDINGS: # of images incl. paperwork: 1 Pulmonary edema is more severe. Calcific plaque within the aortic arch is similar. Lungs are mildly hypoexpanded but to a similar degree as before Heart is borderline enlarged. Thoracic spondylosis is mild. Calcific tendinosis at the insertion of the left supraspinatus. Likely chronic at least partial tear to the left supraspinatus Pulmonary vascularity is indistinct. Bilateral pleural effusions. RAD/Chest 1 View (Portable) IMPRESSION: CHF. at 2121 Reported and signed by: Kolby Strong MD Electronically Signed: Kolby Strong MD at 21:20 EDT Tel , Service support ,
--- NOTE | 2019-06-20 20:36 | EKG12_ITS ---
Test Reason : SOB Blood Pressure : / mmHG Vent. Rate : 131 BPM Atrial Rate : 131 BPM P-R Int : 166 ms QRS Dur : 086 ms QT Int : 348 ms P-R-T Axes : -18 -47 051 degrees QTc Int : 513 ms Sinus tachycardia Left axis deviation Low voltage QRS Inferior infarct , age undetermined Cannot rule out Anterior infarct , age undetermined Abnormal ECG Confirmed by JOSE MANUEL CURRY, SAHHIDA ([id number]), associate entertainment editor VIDAL MCDERMOTT ([id number]) on 06/22/2019 9:59:44 AM Referred By: Jacques Santos Confirmed By:SHAHIDA RICHARD MD
[2019-06-20] MEDS: Ipratropium/Albuterol Sulfate 3 ML AMPUL.NEB INHALATION (20:41)
[2019-06-20 20:50] LABS: Absolute Lymphocyte Count 3.95 X10^3/uL (0.83-4.51); Absolute Neutrophil Count 9.4 X10^3/uL (2.0-7.7); Basophil# 0.19 X10^3/uL; Basophil% 1.2 % (0-1); Eosinophil# 0.65 X10^3/uL; Eosinophils% 4.1 % (0-5); Hemoglobin 13.5 g/dL (12.0-15.0); Lymphocyte # 3.95 X10^3/ul (4.0); Lymphocyte % 25.1 % (19-41); Mean Corp Hgb Conc 32.1 g/dL (32-36); Mean Corpuscular Hgb 27.7 pg (27.0-32.0); Mean Corpuscular Volume 86.1 fL (81-99); Mean Platelet Vol. 9.4 fl (6.2-12.0); Monocyte# 1.42 X10^3/uL; NRBC Flagged by Analyzer 0 % (0-5); Neutrophil # 9.41 X10^3/uL (2.7-7.7); Platelet Count 393 K/mm3 (150-450); RBC Distribution Width CV 14.3 % (11.6-14.6); RBC Distribution Width SD 44.1 fl (35.1-43.9); Red Blood Count 4.88 M/mm3 (4.2-5.4); White Blood Count 15.7 K/mm3 (4.4-11.0)
--- NOTE | 2019-06-20 20:58 | ED.DCSUM_ITS ---
History of Present Illness Chief Complaint: Shortness of Breath Informant: Patient Onset: Today Current Severity: Moderate Narrative: Patient history of CHF other medical conditions hypertension, presents complaining of shortness of breath began today around 8:00pm indicates she has a chronic cough for over a week, she was seen done a possible admitted for the cough and shortness of breath the work-up was unremarkable she was discharged home on antibiotics for UTI she then developed diarrhea, about 2 weeks ago prior to the admission at [facility] she was seen by her tensioning machine operator and her Lasix 40 mill grams there was stopped States the cough has persisted the shortness of breath intensified to the point she could not lay down and she was brought to the hospital. She indicates she has gained weight she feels more edematous her urine output has been baseline, no chest pain no fever the cough is dry nonproductive Past Medical History - Allergies and Home Meds Allergies/Adverse Reactions: Allergies ciprofloxacin [From Cipro] Allergy (Verified 06/20/19 20:26) Shortness of breath ciprofloxacin HCl [From Cipro] Allergy (Verified 06/20/19 20:26) Shortness of breath cyclobenzaprine [From Flexeril] Allergy (Verified 06/20/19 20:26) Rash cyclobenzaprine HCl [From Flexeril] Allergy (Verified 06/20/19 20:26) Rash ketorolac tromethamine [From Toradol] Allergy (Verified 06/20/19 20:26) Chest tightness sulfamethoxazole [From Bactrim] Allergy (Verified 06/20/19 20:26) Itching trimethoprim [From Bactrim] Allergy (Verified 06/20/19 20:26) Itching metformin Adverse Reaction (Verified 06/20/19 20:26) Other headache valacyclovir HCl [From Valtrex] Adverse Reaction (Verified 06/20/19 20:26) Other Past Medical History: - Surgical History: appendectomy, cholecystectomy Smoking Status: Never smoker - Family History Paternal Family History: Family History (Last Reviewed 06/05/19 @ 14:51 by GRAHAM Briceño) Mother Myocardial infarction Father Congestive heart failure Other Diabetes Heart disease Family History: Reports: Heart Disease, - - Bone cancer Maternal Family History: Family History (Last Reviewed 06/05/19 @ 14:51 by GRAHAM Briceño) Mother Myocardial infarction Father Congestive heart failure Other Diabetes Heart disease Family History: Reports: COPD, Diabetes, Heart Disease, - - Smoker Review of Systems ROS: - CHF heart disease cholecystectomy and as above General: Denies: Chills, Fever, Sweats Eyes: Denies: Visual changes - bilaterally, Diplopia ENT: Denies: Rhinorrhea, Sore throat Cardiovascular: Denies: Chest pain, Palpitations Respiratory: Reports: Dyspnea, Cough, Dyspnea on exertion Gastrointestinal: Denies: Abdominal pain, Nausea, Vomiting, Diarrhea, Melena, Hematochezia Genitourinary: Denies: Dysuria, Hematuria, Frequency Musculoskeletal: Denies: Back pain, Extremity Pain Skin: Denies: Rash, Wounds Neurological: Denies: Headache, Weakness, Numbness Physical Exam Vital Signs/Narrative: Vital Signs Temp Pulse Resp BP Pulse Ox 06/20/19 20:42 129 H 22 H 06/20/19 20:21 98.5 F 133 H 31 H 222/134 H 86 General: Well nourished, Well developed, No Acute Distress Head: Normocephalic, Atraumatic Eyes: Perrl, EOMI ENT: Moist mucous membranes, No rhinorrhea Neck: Supple, Nontender Cardiovascular: Regular rate, Regular rhythm, No murmurs Respiratory: CTA bilaterally, Chest nontender, - - Is rales at the bases diffuse rhonchi, she is sitting up her pulse ox on aerosolized nonrebreather is about 91% she speaking full sentences. Negative for: No distress Abdomen: Soft, Nontender, Nondistended, Normal bowel sounds Back: Nontender, Normal Inspection Extremities: Nontender, No edema Skin: Normal color, No rash Neurological: Alert, Oriented x3, Cranial nerves II-XII grossly intact, Normal Strength, Normal Sensation Psychological: Normal affect, Normal Mood Diagnostic/Tx/Re-eval - Medical Decision Making Given all the above the differential is rather extensive she has no history of PE she indicates she stopped her Lasix per her physician's instructions she is had a cough for over a week all the symptoms intensified about an hour ago this time she will be treated with screening labs x-ray EKG Lasix aerosols, The patient's EKG shows a sinus tach of 130 no acute injury pattern appreciated old EKG pending Patient screening labs are all generally unremarkable her white count 16,000, BNP 600, creatinine 1.4 chest x-ray per radiology shows findings consistent with congestive heart failure she was reports she has not with IV Lasix because of the cough and the potential for an occult pneumonia she was also started on IV antibiotics she is feeling better after therapy, her blood pressure improved spontaneously to 160/80 she did not require antihypertensive medications at this time she is resting comfortably hemodynamically stable no signs of respiratory failure requiring intubation I have asked the hospital see her for the management admission Admit stable Final impression Acute congestive heart failure possible pneumonia history of flash pulmonary edema ED Disposition - Plan for ED Patient: Diagnosis: Flash pulmonary edema
[2019-06-20 21:04] LABS: Anion Gap 9 (5-15); BUN 8 mg/dL (7-18); Calcium,Total 9.1 mg/dL (8.5-10.1); Chloride 98 mmol/L (98-107); Creatinine, Serum 1.14 mg/dL (0.55-1.02); EST Glomerular Filtration Rate 51 mL/min (>60); Est Glom Filt Rate - Afr Amer 62 mL/min (>60); Estimated Creatinine Clearance 46.67 ml/min; Glucose 390 mg/dL (74-106); Potassium 3.2 mmol/L (3.5-5.1); Sodium Level 138 mmol/L (136-145)
[2019-06-20 21:17] LABS: BNP,B-Type NATRIURETIC PEPTIDE 504.4 pg/mL (0-100)
[2019-06-20] MEDS: Furosemide 40 MG/4 ML Vial IV (21:26)
--- NOTE | 2019-06-20 21:42 | HP.PCM_ITS ---
Problem List (1) Flash pulmonary edema Status: Acute (2) History of type 1 diabetes mellitus Status: Acute (3) Acute respiratory failure with hypoxia Status: Acute (4) Hypokalemia Status: Acute (5) Fibromyalgia Status: Chronic (6) Congestive heart failure Status: Acute Qualifiers: (7) Type 2 diabetes mellitus Status: Chronic (8) Old myocardial infarct Status: Chronic (9) Diabetic gastroparesis Status: Chronic (10) GERD (gastroesophageal reflux disease) Status: Chronic Qualifiers: (11) Seizure disorder Status: Chronic (12) Paroxysmal atrial fibrillation Status: Chronic (13) Chronic pain syndrome Status: Chronic (14) Takotsubo cardiomyopathy Status: Chronic (15) Iron deficiency anemia Status: Chronic Qualifiers: (16) Depression Status: Chronic Qualifiers: (17) Morbid obesity with BMI of 40.0-44.9, adult Status: Chronic (18) HLD (hyperlipidemia) Status: Chronic Qualifiers: Hyperlipidemia type: pure hypercholesterolemia Qualified Code(s): E78.00 - Pure hypercholesterolemia, unspecified; E78.0 - Pure hypercholesterolemia (19) Benign essential HTN Status: Chronic History of Present Illness Date of Admission: 06/20/19 Chief Complaint: shortness of breath The patient is a 63 year old F with a significant history of hypertension; diabetes mellitus; diastolic heart failure; fibromyalgia; and hyperlipidemia who presented to the emergency department with sudden shortness of breath that began after she woke up from his sleep. Her symptoms started few hours before presentation. At the emergency department patient because of shortness of breath; patient could not lie down. She had to sit in her chair. Patient has been having an ongoing cough for about 2 weeks. She went to [facility] about a week ago where she stayed overnight. She was diagnosed with U TI and placed on antibiotics. Because of kidney injury her Lasix was stopped recently by her PCP. She reported that she saw Dr. Ellison; cardiology and was notified that her heart was okay. At the emergency department chest x-ray showed bilateral pulmonary infiltrates. Her BNP was elevated. Patient has had multiple admissions for flash pulmonary edema. Her date of last admission was 03/18/2019 and she was discharged on 03/23/2019. At that time, her main diagnosis was acute hypoxic respiratory failure secondary to acute on chronic diastolic heart failure with pulmonary edema. Past Medical History Past Medical History (Chronic Problems): Chronic Problems (Last Reviewed 06/20/19 @ 22:50 by Jacques Santos MD) Fibromyalgia (Chronic) Type 2 diabetes mellitus (Chronic) 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) Diabetic gastroparesis (Chronic) GERD (gastroesophageal reflux disease) (Chronic) Seizure disorder (Chronic) Paroxysmal atrial fibrillation (Chronic) Chronic pain syndrome (Chronic) Takotsubo cardiomyopathy (Chronic) Iron deficiency anemia (Chronic) Depression (Chronic) Morbid obesity with BMI of 40.0-44.9, adult (Chronic) HLD (hyperlipidemia) (Chronic) Benign essential HTN (Chronic) Medical History: Medical History (Last Reviewed 06/20/19 @ 23:26 by Jacques Santos MD) Fibromyalgia (Chronic) M79.7 Congestive heart failure (Acute) I50.9 Type 2 diabetes mellitus (Chronic) E11.9 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) I25.2 GERD (gastroesophageal reflux disease) (Chronic) K21.9 Seizure disorder (Chronic) G40.909 Paroxysmal atrial fibrillation (Chronic) I48.0 Chronic pain syndrome (Chronic) G89.4 Takotsubo cardiomyopathy (Chronic) I51.81 Iron deficiency anemia (Chronic) D50.9 Depression (Chronic) F32.9 Morbid obesity with BMI of 40.0-44.9, adult (Chronic) E66.01, Z68.41 HLD (hyperlipidemia) (Chronic) E78.5 Benign essential HTN (Chronic) I10 Diabetic gastroparesis E11.43, K31.84 Diverticulitis K57.92 Fibromyalgia M79.7 QIAN (obstructive sleep apnea) G47.33 Restless leg syndrome G25.81 History of CVA (cerebrovascular accident) (Inactive) Z86.73 Allergies ciprofloxacin [From Cipro] Allergy (Verified 06/20/19 20:26) Shortness of breath ciprofloxacin HCl [From Cipro] Allergy (Verified 06/20/19 20:26) Shortness of breath cyclobenzaprine [From Flexeril] Allergy (Verified 06/20/19 20:26) Rash cyclobenzaprine HCl [From Flexeril] Allergy (Verified 06/20/19 20:26) Rash ketorolac tromethamine [From Toradol] Allergy (Verified 06/20/19 20:26) Chest tightness sulfamethoxazole [From Bactrim] Allergy (Verified 11/02/19 20:26) Itching trimethoprim [From Bactrim] Allergy (Verified 06/20/19 20:26) Itching metformin Adverse Reaction (Verified 06/20/19 20:26) Other headache valacyclovir HCl [From Valtrex] Adverse Reaction (Verified 06/20/19 20:26) Other Home Medications: Ambulatory Orders Medication Instructions Recorded Ropinirole HCl [Requip] 1 mg PO QHS 05/07/16 Haloperidol 2 mg PO TID PRN PRN 09/17/18 Levothyroxine Sodium 75 mcg PO DAILY 09/17/18 Simvastatin 40 mg PO QHS 09/17/18 Candesartan Cilexetil [Atacand] 16 mg PO DAILY 11/30/18 Hydrocodone Bitart/Apap 5-325 1 tab PO Q6H PRN PRN 11/30/18 [Prosperity 5/325] Hydroxychloroquine [Plaquenil] 200 mg PO BIDCM 11/30/18 Montelukast Sodium 10 mg PO DAILY 11/30/18 Pregabalin [Lyrica] 225 mg PO BID 11/30/18 sertraline 50 mg tablet 25 mg PO DAILY tab 01/09/19 Insulin Glargine,Hum.rec.anlog 25 unit SQ DAILY 03/21/19 [Touchloé Solwilla] Carvedilol [Coreg] 6.25 mg PO BID #0 03/23/19 allopurinol 100 mg tablet 100 mg PO DAILY tab 03/30/19 nystatin 100,000 unit/gram topical 1 applic TOPICAL BID PRN 03/30/19 powder Insulin Regular, Human [Humulin R 75 unit SQ LUNCH 04/11/19 U-500 Kwikpen] Insulin Regular, Human [Humulin R 100 unit SQ BREAKFAST 04/11/19 U-500 Kwikpen] Insulin U-500 [Humulin R U-500 80 ml SUBCUT DINNER 04/11/19 ([facility])] furosemide 20 mg tablet 40 mg PO Q OTHER DAY tab 06/05/19 Cephalexin [Keflex] 500 mg PO Q12 06/20/19 Codeine Phosphate/Guaifenesin 10 ml PO Q6H PRN 06/20/19 [Virtussin AC Liquid] Surgical History: Surgical History (Last Reviewed 06/20/19 @ 23:27 by Jacques Santos MD) History of cholecystectomy Z90.49 History of knee surgery Z98.890 History of left heart catheterization Onset Date: 03/09/19 Z98.890 Surgical History: appendectomy, cholecystectomy Psychiatric History: Depression 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 Smoking Status: Never smoker - *Family History Paternal Family History: Family History (Last Reviewed 06/20/19 @ 23:19 by Jacques Santos MD) Mother Myocardial infarction Father Congestive heart failure Other Diabetes Heart disease History Items: Heart Disease, - - Bone cancer Maternal Family History: Family History (Last Reviewed 06/20/19 @ 23:19 by Jacques Santos MD) Mother Myocardial infarction Father Congestive heart failure Other Diabetes Heart disease History Items: COPD, Diabetes, Heart Disease, - - Smoker Review of Systems Constitutional: Denies: Chills, Fever, Weight Change HEENT: Denies: Head Aches, Sinus Congestion, Sinus Drainage Cardiovascular: Reports: Edema - chronic, Orthopnea, Paroxysmal Noc. Dyspnea. Denies: Chest Pain, Palpitations Respiratory: Reports: Cough, Shortness of breath at rest. Denies: Sputum production Gastrointestinal: Denies: Abdominal Pain, Nausea, Vomiting Genitourinary: Denies: Dysuria Musculoskeletal: Denies: Joint Pain, Joint Tenderness Skin: Denies: Rash, Wounds Neurological: Denies: Numbness, Tingling, Focal weakness Psychiatric: Reports: Anxiety, Depression. Denies: Homicidal Ideations, Suicidal Ideations Hematologic/ Lymphatic: Denies: Easy Bruising, Easy Bleeding VTE Information - Inpt Only VTE Present on Admission: No VTE Mechan Device Prophylaxis: None VTE Pharm Prophylaxis ordered?: Yes Patient Problems: Active and Suspected Problems (Last Reviewed 06/20/19 @ 22:50 by Jacques Santos MD) Flash pulmonary edema (Acute) - Physical Exam Vitals/I&O's: Vital Signs Temp Pulse Resp BP Pulse Ox 97.6 F L 113 H 25 H 165/109 H 91 06/20/19 21:30 06/20/19 21:30 06/20/19 21:30 06/20/19 21:30 06/20/19 21:30 Oxygen Flow Rate (L/min) 4 Oxygen Delivery Method Nasal Cannula Weight: 132.6 kg Body Mass Index (BMI) 47.2 Finger Stick Blood Glucose 480 General: Alert, Oriented x3, Cooperative HEENT: Atraumatic, PERRLA, EOMI, Normocephalic Neck: Supple, No JVD, Negative Carotid Bruits Lungs: Normal air movement, No rhonchi, No wheeze, Rales, Tachypneic Cardiovascular: Normal S1, Normal S2, No murmurs, Tachycardic Abdomen: Bowel Sounds Present, Soft, Non Tender Extremities: Capillary Refill Less than 3 Seconds, Edema - Right foot worse than left foot., - - Deviation of bilateral big toes towards 5th toe. Skin: No rashes, No breakdown Musculoskeletal: No Tenderness to Palpation of Joints or Extremities Neurological: Cranial nerves II-XII grossly intact Psych/Mental Status: Normal Affect, Appropriate Laboratory Results 06/20/19 20:28: WBC 15.7 H, RBC 4.88, Hgb 13.5, Hct 42.0, MCV 86.1, MCH 27.7, MCHC 32.1, RDW Std Deviation 44.1 H, RDW Coeff of Be 14.3, Plt Count 393, MPV 9.4, Immature Gran % (Auto) 0.600, Neut % (Auto) 60.0, Lymph % (Auto) 25.1, [place] % (Auto) 9.0, Eos % (Auto) 4.1, Baso % (Auto) 1.2 H, Absolute Neuts (auto) 9.4 H , Absolute Lymphs (auto) 3.95, Nucleated RBC % 0 06/20/19 20:28: Sodium 138, Potassium 3.2 L, Chloride 98, Carbon Dioxide 31.0, Anion Gap 9, BUN 8, Creatinine 1.14 H, Estim Creat Clear Calc 46.67, Est GFR (MDRD) Af Amer 62, Est GFR (MDRD) Non-Af 51 L, BUN/Creatinine Ratio 7.0 L, Glucose 390 H, Calcium 9.1, Troponin I 0.017 06/20/19 20:28: B-Natriuretic Peptide 504.4 H Current Medications Vancomycin HCl 1,250 mg/ (Dextrose) 275 mls @ 250 mls/hr IV X1 ONE Stop: 06/20/19 22:35 Assessment/Plan All Active Problems (Last Reviewed 06/20/19 @ 22:50 by Jacques Santos MD) History of type 1 diabetes mellitus (Acute) Acute respiratory failure with hypoxia (Acute) Flash pulmonary edema (Acute) NSTEMI (non-ST elevated myocardial infarction) (Resolved) Hypokalemia (Acute) Congestive heart failure (Acute) The patient is a 63 year old F with a significant history of hypertension; diabetes mellitus; diastolic heart failure; fibromyalgia; and hyperlipidemia who presented to the emergency department with sudden shortness of breath that began after she woke up from his sleep; and found to have bilateral pulmonary infiltrate consistent with flash pulmonary edema.. Acute hypoxic respiratory failure secondary to acute on chronic diastolic heart failure with Flash pulmonary edema Place on monitored bed at the PCU Weight on admission to the floor; and then daily Strict I&O's CXR independently reviewed confirms diffuse pulmonary infiltrates. EKG independently reviewed confirms old infarct in inferior and anterior leads. Echocardiogram on 03/19/2019 showed stage II diastolic dysfunction. Ejection fraction was 55%. Right ventricular systolic pressure was unable to be determined due to insufficient tricuspid regurgitant envelope. Emergency department labs reviewed showed elevated BNP and hypokalemia as well as hyperglycemia Diuresis with 40 mg IV twice daily. Was given 40 mg IV at the emergency department. Echo not ordered since it was done within the last 3 months. Monitor electrolytes and renal function Trend blood pressure Titrate diuretics with blood pressure. Kerlix roll and sienna wrap not ordered since patient has not noticed any increase in her bilateral lower legs although she has some mild chronic swelling in her legs right worse than left. Leukocytosis On presentation her white count was 15.7. Patient denies any fever or chills. On her last admission she was also found to have leukocytosis in the setting of flash pulmonary edema. She was initially put on antibiotics. Antibiotics were discontinued after 4 days after no infectious causes were found. On this admission patient is on Keflex at home for UTI. On presentation to the emergency department she was given vancomycin and Zosyn. Likely reactive. We will continue home Keflex which she has 2 more doses left. Trend CBC. Cough Could be due to congestive heart failure or bronchitis. Continue according PRN would add schedule Mucinex. Hypokalemia On presentation potassium was 3.2. Likely from high-dose insulin use. Supplement potassium. Trend BMP. Hypertension On presentation her blood pressure was not within goal. Was noted to decline after receiving IV Lasix at the emergency department. Lasix IV continued Home carvedilol and candesartan; continued. Trend blood pressure and adjust blood pressure medications. Diabetes mellitus On presentation her blood glucose was not within goal. Continue home basal and prandial insulin. Accu-Chek QA CHS and 3 AM with low-dose correction scale. Fibromyalgia Home Lyrica and Prosperity continued. Depression: Sertraline and haloperidol continued Recent UTI Continue Keflex for 2 more doses. DVT prophylaxis Subcutaneous Lovenox. Code Visit Inpatient E&M: 73169 Init Hosp L3
[2019-06-20] MEDS: Albuterol 2.5 MG/3 ML VIAL.NEB. INHALATION (22:03)
[2019-06-21] VITALS (12 sets, daily range): BP systolic 87–145; BP diastolic 40–88; PULSE 61–113; RESP 18–21; TEMP 36.4–37.1; O2SAT 96–99
[2019-06-21 00:01] LABS: Bedside Glucose 481 mg/dL (70-110)
[2019-06-21] MEDS: Insulin Lispro 100 UNIT/ML INSULN.PEN 10 UNIT SC (00:26)
[2019-06-21 00:57] LABS: Glucose 514 mg/dL (74-106)
[2019-06-21] MEDS: Hydroxychloroquine 200 MG Tablet PO ×3 (01:27→17:05)
[2019-06-21] MEDS: guaiFENesin 1,200 MG Tablet 1200 MG PO ×3 (01:27→21:57)
[2019-06-21] MEDS: Carvedilol 6.25 MG Tablet PO ×3 (01:28→21:56)
[2019-06-21] MEDS: Pregabalin 75 MG Capsule 225 MG PO ×3 (01:28→21:56)
[2019-06-21] MEDS: Atorvastatin Calcium 20 MG Tablet PO ×2 (01:28→21:56)
[2019-06-21] MEDS: Allopurinol 100 MG Tablet PO ×2 (01:29→21:56)
[2019-06-21] MEDS: Pramipexole Di-HCl 0.5 MG Tablet PO ×2 (01:29→21:56)
[2019-06-21] MEDS: HYDROcodone Bitartrate/Apap 5/325 Tablet PO ×3 (01:52→16:12)
[2019-06-21] MEDS: 0.9% Saline Lock 10 ML Syringe IV (02:00)
[2019-06-21] MEDS: Insulin Lispro 100 UNIT/ML INSULN.PEN SC ×4 (03:00→21:59)
[2019-06-21 03:11] LABS: Bedside Glucose 342 mg/dL (70-110)
[2019-06-21] MEDS: Cephalexin 500 MG Capsule PO ×3 (05:12→17:05)
[2019-06-21] MEDS: Levothyroxine 75 MCG Tablet PO (05:12)
[2019-06-21 06:30] LABS: Absolute Lymphocyte Count 1.34 X10^3/uL (0.83-4.51); Absolute Neutrophil Count 11.4 X10^3/uL (2.0-7.7); Basophil# 0.09 X10^3/uL; Basophil% 0.6 % (0-1); Eosinophil# 0.13 X10^3/uL; Eosinophils% 0.9 % (0-5); Hematocrit 37.1 % (37-47); Hemoglobin 11.6 g/dL (12.0-15.0); Lymphocyte # 1.34 X10^3/ul (4.0); Lymphocyte % 9.4 % (19-41); Mean Corp Hgb Conc 31.3 g/dL (32-36); Mean Corpuscular Hgb 27.4 pg (27.0-32.0); Mean Corpuscular Volume 87.5 fL (81-99); Mean Platelet Vol. 9.7 fl (6.2-12.0); Monocyte# 1.15 X10^3/uL; Monocyte% 8.1 % (0-10); NRBC Flagged by Analyzer 0 % (0-5); Neutrophil # 11.44 X10^3/uL (2.7-7.7); Neutrophil % 80.6 % (47-70); Platelet Count 254 K/mm3 (150-450); RBC Distribution Width CV 14.6 % (11.6-14.6); RBC Distribution Width SD 46.1 fl (35.1-43.9); Red Blood Count 4.24 M/mm3 (4.2-5.4); White Blood Count 14.2 K/mm3 (4.4-11.0)
[2019-06-21 07:22] LABS: Anion Gap 8 (5-15); BUN 11 mg/dL (7-18); BUN/Creat Ratio 9.5 RATIO (10-20); Calcium,Total 8.7 mg/dL (8.5-10.1); Chloride 97 mmol/L (98-107); Creatinine, Serum 1.16 mg/dL (0.55-1.02); EST Glomerular Filtration Rate 50 mL/min (>60); Est Glom Filt Rate - Afr Amer 60 mL/min (>60); Estimated Creatinine Clearance 45.87 ml/min; Glucose 308 mg/dL (74-106); Potassium 4.2 mmol/L (3.5-5.1); Sodium Level 139 mmol/L (136-145)
[2019-06-21] MEDS: Losartan Potassium 25 MG Tablet 75 MG PO (08:19)
[2019-06-21] MEDS: Enoxaparin 40 MG/0.4 ML Syringe SC (08:20)
[2019-06-21] MEDS: Furosemide 40 MG/4 ML Vial IV ×2 (08:20→17:05)
[2019-06-21] MEDS: Montelukast 10 MG Tablet PO (08:22)
[2019-06-21] MEDS: Sertraline 50 MG Tablet 25 MG PO (08:22)
[2019-06-21 08:51] LABS: Bedside Glucose 258 mg/dL (70-110)
[2019-06-21] MEDS: Glucerna Shake 120 ML LIQUID 60 ML PO ×2 (11:24→21:55)
[2019-06-21 11:30] LABS: Bedside Glucose 243 mg/dL (70-110)
--- NOTE | 2019-06-21 12:59 | PCM.PROGNOTE ---
<Davonte Hurley - Last Filed: 06/21/19 12:59> Patient Problems: Active and Suspected Problems (Last Reviewed 06/20/19 @ 23:26 by Jacques Santos MD) Flash pulmonary edema (Acute) Subjective: Pt has been slowly decreasing her home lasix dose for several weeks reporting that her PCP was worried about her kidney function. Her breathing has slowly worsened, however last night it became suddenly worse. She laid flat on the couch and woke up feeling like she could not breathe. She has no CP. No palp. - Physical Exam Vitals/I&O's: Vital Signs Temp Pulse Resp BP Pulse Ox 97.6 F L 83 20 H 109/61 97 06/21/19 08:15 06/21/19 08:15 06/21/19 08:15 06/21/19 08:15 06/21/19 08:15 Oxygen Flow Rate (L/min) 4 Oxygen Delivery Method Nasal Cannula Weight: 286 lb 9.615 oz Body Mass Index (BMI) 46.5 Finger Stick Blood Glucose 480 Intake and Output for Last 24 Hours 06/19/19 06/20/19 06/21/19 23:59 23:59 22:59 Intake Total 240 / 240 1275 / 1275 Output Total 285 / 285 1375 / 1375 Balance -45 / -45 -100 / -100 General: Alert, Oriented x3, Cooperative HEENT: Atraumatic, PERRLA, EOMI, Normocephalic Neck: Supple, No JVD, Negative Carotid Bruits Lungs: Clear to auscultation, Normal air movement Cardiovascular: Regular rate, No murmurs Abdomen: Bowel Sounds Present, Soft, Non Tender Extremities: No edema, Capillary Refill Less than 3 Seconds Skin: No rashes, No breakdown Musculoskeletal: No Tenderness to Palpation of Joints or Extremities Neurological: Cranial nerves II-XII grossly intact Psych/Mental Status: Normal Affect, Appropriate, Alert and oriented to time, place, person, mood and affect Laboratory Results 06/20/19 20:28: WBC 15.7 H, RBC 4.88, Hgb 13.5, Hct 42.0, MCV 86.1, MCH 27.7, MCHC 32.1, RDW Std Deviation 44.1 H, RDW Coeff of Be 14.3, Plt Count 393, MPV 9.4, Immature Gran % (Auto) 0.600, Neut % (Auto) 60.0, Lymph % (Auto) 25.1, [place] % (Auto) 9.0, Eos % (Auto) 4.1, Baso % (Auto) 1.2 H, Absolute Neuts (auto) 9.4 H, Absolute Lymphs (auto) 3.95, Nucleated RBC % 0 06/20/19 20:28: Sodium 138, Potassium 3.2 L, Chloride 98, Carbon Dioxide 31.0, Anion Gap 9, BUN 8, Creatinine 1.14 H, Estim Creat Clear Calc 46.67, Est GFR (MDRD) Af Amer 62, Est GFR (MDRD) Non-Af 51 L, BUN/Creatinine Ratio 7.0 L, Glucose 390 H, Calcium 9.1, Troponin I 0.017 06/20/19 20:28: B-Natriuretic Peptide 504.4 H 06/20/19 23:55: POC Glucose 481 H* 06/21/19 00:02: Glucose 514 H* 06/21/19 02:49: POC Glucose 342 H 06/21/19 05:58: WBC 14.2 H, RBC 4.24, Hgb 11.6 L, Hct 37.1, MCV 87.5, MCH 27.4, MCHC 31.3 L, RDW Std Deviation 46.1 H, RDW Coeff of Be 14.6, Plt Count 254, MPV 9.7, Immature Gran % (Auto) 0.400, Neut % (Auto) 80.6 H, Lymph % (Auto) 9.4 L, [place] % (Auto) 8.1, Eos % (Auto) 0.9, Baso % (Auto) 0.6, Absolute Neuts (auto) 11.4 H, Absolute Lymphs (auto) 1.34, Nucleated RBC % 0 06/21/19 05:58: Sodium 139, Potassium 4.2, Chloride 97 L, Carbon Dioxide 34.0 H, Anion Gap 8, BUN 11, Creatinine 1.16 H, Estim Creat Clear Calc 45.87, Est GFR (MDRD) Af Amer 60, Est GFR (MDRD) Non-Af 50 L, BUN/Creatinine Ratio 9.5 L, Glucose 308 H, Calcium 8.7 06/21/19 08:15: POC Glucose 258 H 06/21/19 11:20: POC Glucose 243 H Current Medications Hydrocodone Bitart/Acetaminophen ([place] 5mg-325mg) 1 tablet PO Q6H PRN PRN PRN Reason: PAIN -05/28 Last Admin: 06/21/19 08:32 Dose: 1 tablet Documented by: Allopurinol (Zyloprim) 100 mg PO DAILY@2200 [facility] Last Admin: 06/21/19 01:29 EDT Dose: 100 mg Documented by: Atorvastatin Calcium (Lipitor) 20 mg PO QHS [facility] Last Admin: 06/21/19 01:28 EDT Dose: 20 mg Documented by: Carvedilol (Coreg) 6.25 mg PO BID [facility] Last Admin: 06/21/19 08:19 Dose: 6.25 mg Documented by: Cephalexin (Keflex) 500 mg PO Q6 [facility] Stop: 06/22/19 00:01 Last Admin: 06/21/19 11:24 Dose: 500 mg Documented by: Dextrose (D50w Syringe) 0 gm IV X1 PRN; Protocol PRN Reason: Hypoglycemia Enoxaparin Sodium (Lovenox) 40 mg SC DAILY@1000 [facility] Last Admin: 06/21/19 08:20 Dose: 40 mg Documented by: Furosemide (Lasix) 40 mg IV BIDLX [facility] Last Admin: 06/21/19 08:20 Dose: 40 mg Documented by: Glucagon () 1 mg IM .X1 PRN PRN Reason: Hypoglycemia Guaifenesin (Mucinex) 1,200 mg PO BID [facility] Last Admin: 06/21/19 08:21 Dose: 1,200 mg Documented by: Guaifenesin/Codeine Phosphate (Robitussin Ac) 10 ml PO Q6H PRN PRN PRN Reason: COUGH Haloperidol (Haldol) 2.5 mg PO TID PRN PRN PRN Reason: nausea and vomiting [facility] Last Admin: 06/21/19 08:18 Dose: 200 mg Documented by: Insulin Glargine (Lantus (Bkc)) 18 units SC BREAKFAST [facility] Last Admin: 06/21/19 08:44 Dose: 18 u Documented by: Insulin Human Lispro (Humalog Kwikpen (Bkc)) 0 unit SC ACHS & 0200 [facility]; Protocol Last Admin: 06/21/19 11:24 Dose: 3 u Documented by: Insulin Human Regular (Humulin R U-500 (Bk)) 25 units SC BREAKFAST [facility] Last Admin: 06/21/19 08:17 Dose: 25 u Documented by: Insulin Human Regular (Humulin R U-500 (Bkc)) 25 units SC DINNER [facility] Levothyroxine Sodium (Synthroid) 75 mcg PO DAILY@0600 [facility] Last Admin: 06/21/19 05:12 Dose: 75 mcg Documented by: Losartan Potassium (Cozaar) 75 mg PO DAILY [facility] Last Admin: 06/21/19 08:19 Dose: 75 mg Documented by: Montelukast Sodium (Singulair) 10 mg PO DAILY [facility] Last Admin: 06/21/19 08:22 Dose: 10 mg Documented by: Nutritional Formula (Lactose Free) (Glucerna Shake) 60 ml PO 4X/DAY [facility] Last Admin: 06/21/19 11:24 Dose: 60 ml Documented by: Nystatin (Mycostatin Powder) 1 applic TOPICAL BID PRN PRN; Protocol PRN Reason: rash Ondansetron HCl (Zofran) 4 mg IV Q8H PRN PRN PRN Reason: Nausea Potassium Chloride (K-Dur) 40 meq PO BIDCM [facility] Last Admin: 06/21/19 08:18 Dose: 40 meq Documented by: Pramipexole Dihydrochloride (Mirapex) 0.5 mg PO QHS [facility] Last Admin: 06/21/19 01:29 EDT Dose: 0.5 mg Documented by: Pregabalin (Lyrica) 225 mg PO BID [facility] Last Admin: 06/21/19 08:32 Dose: 225 mg Documented by: Sertraline HCl (Zoloft) 25 mg PO DAILY [facility] Last Admin: 06/21/19 08:22 Dose: 25 mg Documented by: Sodium Chloride () 10 - 40 ml IV UD PRN PRN Reason: SALINE FLUSH Last Admin: 06/21/19 02:00 Dose: 10 ml Documented by: Medical Necessity - Tobacco Use Smoking Status: Never smoker Assessment/Plan All Active Problems (Last Reviewed 06/20/19 @ 23:26 by Jacques Santos MD) History of type 1 diabetes mellitus (Acute) Acute respiratory failure with hypoxia (Acute) Flash pulmonary edema (Acute) NSTEMI (non-ST elevated myocardial infarction) (Resolved) Hypokalemia (Acute) Congestive heart failure (Acute) 1. Acute on chronic diastolic CHF exacerbation, with acute hypoxic respiratory failure - improving. Does not use o2 or cpap at home, requiring 4lpm o2. Currently on 3lpm O2. BNP elevated. CXR shows CHF. Echo showed St2 diastolic dysfunction EF55%, bicuspid aortic valve. Continue lasix. Coreg and losartan continued 2. HTN urgency - resolved. 3. DMt2 - continue long acting + U500 + SSI, hx gastroparesis 4. Recent UTI - completing keflex. 5. P. Afib - SR. rate stable. 6. HLD - statin 7. CAD - Hx VT - statin, coreg, losartan. not on aspirin plavix. Hx takotsubo. 8. Fibromyalgia - lyrica, plaquenil 9. Depression - zoloft. DVT ppx: lovenox DC planning: PTOT. This patient was seen by Davonte Hurley PA-C under the supervision of Doctor Min. <Ceasar Copeland F - Last Filed: 06/21/19 13:49> - Physical Exam Vitals/I&O's: Vital Signs Temp Pulse Resp BP Pulse Ox 97.6 F L 83 20 H 109/61 97 06/21/19 08:15 06/21/19 08:15 06/21/19 08:15 06/21/19 08:15 06/21/19 08:15 Oxygen Flow Rate (L/min) 4 Oxygen Delivery Method Nasal Cannula Weight: 286 lb 9.615 oz Body Mass Index (BMI) 46.5 Finger Stick Blood Glucose 480 Intake and Output for Last 24 Hours 06/19/19 06/20/19 06/21/19 23:59 23:59 22:59 Intake Total 240 / 240 1275 / 1275 Output Total 285 / 285 1375 / 1375 Balance -45 / -45 -100 / -100 Laboratory Results 06/20/19 20:28: WBC 15.7 H, RBC 4.88, Hgb 13.5, Hct 42.0, MCV 86.1, MCH 27.7, MCHC 32.1, RDW Std Deviation 44.1 H, RDW Coeff of Be 14.3, Plt Count 393, MPV 9.4, Immature Gran % (Auto) 0.600, Neut % (Auto) 60.0, Lymph % (Auto) 25.1, [place] % (Auto) 9.0, Eos % (Auto) 4.1, Baso % (Auto) 1.2 H, Absolute Neuts (auto) 9.4 H, Absolute Lymphs (auto) 3.95, Nucleated RBC % 0 06/20/19 20:28: Sodium 138, Potassium 3.2 L, Chloride 98, Carbon Dioxide 31.0, Anion Gap 9, BUN 8, Creatinine 1.14 H, Estim Creat Clear Calc 46.67, Est GFR (MDRD) Af Amer 62, Est GFR (MDRD) Non-Af 51 L, BUN/Creatinine Ratio 7.0 L, Glucose 390 H, Calcium 9.1, Troponin I 0.017 06/20/19 20:28: B-Natriuretic Peptide 504.4 H 06/20/19 23:55: POC Glucose 481 H* 06/21/19 00:02: Glucose 514 H* 06/21/19 02:49: POC Glucose 342 H 06/21/19 05:58: WBC 14.2 H, RBC 4.24, Hgb 11.6 L, Hct 37.1, MCV 87.5, MCH 27.4, MCHC 31.3 L, RDW Std Deviation 46.1 H, RDW Coeff of Be 14.6, Plt Count 254, MPV 9.7, Immature Gran % (Auto) 0.400, Neut % (Auto) 80.6 H, Lymph % (Auto) 9.4 L, [place] % (Auto) 8.1, Eos % (Auto) 0.9, Baso % (Auto) 0.6, Absolute Neuts (auto) 11.4 H, Absolute Lymphs (auto) 1.34, Nucleated RBC % 0 06/21/19 05:58: Sodium 139, Potassium 4.2, Chloride 97 L, Carbon Dioxide 34.0 H, Anion Gap 8, BUN 11, Creatinine 1.16 H, Estim Creat Clear Calc 45.87, Est GFR (MDRD) Af Amer 60, Est GFR (MDRD) Non-Af 50 L, BUN/Creatinine Ratio 9.5 L, Glucose 308 H, Calcium 8.7 06/21/19 08:15: POC Glucose 258 H 06/21/19 11:20: POC Glucose 243 H Current Medications Hydrocodone Bitart/Acetaminophen ([place] 5mg-325mg) 1 tablet PO Q6H PRN PRN PRN Reason: PAIN -05/28 Last Admin: 06/21/19 08:32 Dose: 1 tablet Documented by: Allopurinol (Zyloprim) 100 mg PO DAILY@2200 [facility] Last Admin: 06/21/19 01:29 EDT Dose: 100 mg Documented by: Atorvastatin Calcium (Lipitor) 20 mg PO QHS [facility] Last Admin: 06/21/19 01:28 EDT Dose: 20 mg Documented by: Carvedilol (Coreg) 6.25 mg PO BID [facility] Last Admin: 06/21/19 08:19 Dose: 6.25 mg Documented by: Cephalexin (Keflex) 500 mg PO Q6 [facility] Stop: 06/22/19 00:01 Last Admin: 06/21/19 11:24 Dose: 500 mg Documented by: Dextrose (D50w Syringe) 0 gm IV X1 PRN; Protocol PRN Reason: Hypoglycemia Enoxaparin Sodium (Lovenox) 40 mg SC DAILY@1000 [facility] Last Admin: 06/21/19 08:20 Dose: 40 mg Documented by: Furosemide (Lasix) 40 mg IV BIDLX [facility] Last Admin: 06/21/19 08:20 Dose: 40 mg Documented by: Glucagon () 1 mg IM .X1 PRN PRN Reason: Hypoglycemia Guaifenesin (Mucinex) 1,200 mg PO BID [facility] Last Admin: 06/21/19 08:21 Dose: 1,200 mg Documented by: Guaifenesin/Codeine Phosphate (Robitussin Ac) 10 ml PO Q6H PRN PRN PRN Reason: COUGH Haloperidol (Haldol) 2.5 mg PO TID PRN PRN PRN Reason: nausea and vomiting Hydroxychloroquine Sulfate (Plaquenil) 200 mg PO BIDCM [facility] Last Admin: 06/21/19 08:18 Dose: 200 mg Documented by: Insulin Glargine (Lantus (Bkc)) 18 units SC BREAKFAST [facility] Last Admin: 06/21/19 08:44 Dose: 18 u Documented by: Insulin Human Lispro (Humalog Kwikpen (Bk)) 0 unit SC ACHS & 0200 [facility]; Protocol Last Admin: 06/21/19 11:24 Dose: 3 u Documented by: Insulin Human Regular (Humulin R U-500 (Bkc)) 25 units SC BREAKFAST [facility] Last Admin: 06/21/19 08:17 Dose: 25 u Documented by: Insulin Human Regular (Humulin R U-500 (Bkc)) 25 units SC DINNER [facility] Levothyroxine Sodium (Synthroid) 75 mcg PO DAILY@0600 [facility] Last Admin: 06/21/19 05:12 Dose: 75 mcg Documented by: Losartan Potassium (Cozaar) 75 mg PO DAILY [facility] Last Admin: 06/21/19 08:19 Dose: 75 mg Documented by: Montelukast Sodium (Singulair) 10 mg PO DAILY [facility] Last Admin: 06/21/19 08:22 Dose: 10 mg Documented by: Nutritional Formula (Lactose Free) (Glucerna Shake) 60 ml PO 4X/DAY [facility] Last Admin: 06/21/19 11:24 Dose: 60 ml Documented by: Nystatin (Mycostatin Powder) 1 applic TOPICAL BID PRN PRN; Protocol PRN Reason: rash Ondansetron HCl (Zofran) 4 mg IV Q8H PRN PRN PRN Reason: Nausea Potassium Chloride (K-Dur) 40 meq PO BIDCM [facility] Last Admin: 06/21/19 08:18 Dose: 40 meq Documented by: Pramipexole Dihydrochloride (Mirapex) 0.5 mg PO QHS [facility] Last Admin: 06/21/19 01:29 EDT Dose: 0.5 mg Documented by: Pregabalin (Lyrica) 225 mg PO BID [facility] Last Admin: 06/21/19 08:32 Dose: 225 mg Documented by: Sertraline HCl (Zoloft) 25 mg PO DAILY [facility] Last Admin: 06/21/19 08:22 Dose: 25 mg Documented by: Sodium Chloride () 10 - 40 ml IV UD PRN PRN Reason: SALINE FLUSH Last Admin: 06/21/19 02:00 Dose: 10 ml Documented by: Code Visit Addendum: Dr. Copeland I personally examined the patient and reviewed the chart. I agree with the above. 63-year-old female with acute ataxic respiratory failure in the setting of acute on chronic diastolic heart failure with pulmonary edema. We will continue with elevated dosing of her Lasix, as her creatinine is just fine at 1.16. I do not think that she needs to be decreasing her Lasix dosing as she is having repeated episodes of pulmonary edema. We will continue with IV Lasix 40 mg twice daily and will monitor. She had an echo done in March with an EF of 55% and stage II diastolic dysfunction. We will complete her outpatient course of Keflex for her UTI. Inpatient E&M: 67481 Subs Hosp L2
[2019-06-21] MEDS: Ondansetron 4 MG/2 ML Vial IV (14:25)
[2019-06-21 16:31] LABS: Bedside Glucose 122 mg/dL (70-110)
[2019-06-21 22:10] LABS: Bedside Glucose 168 mg/dL (70-110)
--- NOTE | 2019-06-21 23:14 | EKG12_ITS ---
Test Reason : EKG CHANGES Blood Pressure : / mmHG Vent. Rate : 067 BPM Atrial Rate : 067 BPM P-R Int : 168 ms QRS Dur : 088 ms QT Int : 640 ms P-R-T Axes : 030 -44 225 degrees QTc Int : 676 ms Sinus rhythm with occasional Premature ventricular complexes Left axis deviation Inferior infarct , age undetermined Marked T wave abnormality, consider anterolateral ischemia Prolonged QT Abnormal ECG Confirmed by JOSE MANUEL CURRY, SHAHIDA ([id number]), editorial manager VIDAL MCDERMOTT ([id number]) on 06/24/2019 11:18:40 AM Referred By: Jacques Santos Confirmed By:SHAHIDA RICHARD MD
[2019-06-22] VITALS (12 sets, daily range): BP systolic 101–161; BP diastolic 42–73; PULSE 64–78; RESP 14–18; TEMP 36.2–36.9; O2SAT 96–98
[2019-06-22] MEDS: Cephalexin 500 MG Capsule PO (00:10)
[2019-06-22 00:59] LABS: Anion Gap 5 (5-15); BUN 16 mg/dL (7-18); BUN/Creat Ratio 11.3 RATIO (10-20); Calcium,Total 8.8 mg/dL (8.5-10.1); Chloride 101 mmol/L (98-107); Creatinine, Serum 1.42 mg/dL (0.55-1.02); EST Glomerular Filtration Rate 40 mL/min (>60); Est Glom Filt Rate - Afr Amer 48 mL/min (>60); Estimated Creatinine Clearance 37.47 ml/min; Glucose 172 mg/dL (74-106); Potassium 4.2 mmol/L (3.5-5.1); Sodium Level 138 mmol/L (136-145)
[2019-06-22] MEDS: Insulin Lispro 100 UNIT/ML INSULN.PEN SC ×5 (01:42→21:58)
[2019-06-22 01:51] LABS: Bedside Glucose 156 mg/dL (70-110)
--- NOTE | 2019-06-22 02:56 | PCM.PN.BLA ---
Progress Note Nurse reports prolonged QTC and T wave inversion on the monitor for which ECG was done. ECG confirmed same findings. Patient with no chest pain. BMP and magnesium ordered. BMP and magnesium unremarkable. Will discontinue PRN Zofran and PRN Haldol. Will trend troponin. STROKE Vital Signs/Narrative: Vital Signs Pulse 06/21/19 23:00 61
[2019-06-22] MEDS: Levothyroxine 75 MCG Tablet PO (05:07)
[2019-06-22] MEDS: HYDROcodone Bitartrate/Apap 5/325 Tablet PO ×3 (05:57→20:09)
[2019-06-22 06:41] LABS: Bedside Glucose 184 mg/dL (70-110)
--- NOTE | 2019-06-22 07:55 | CON.PCM_ITS ---
Reason for Consult Date of Consultation: 06/22/19 Reason for Consultation: Abnormal EKG History of Present Illness: The patient is a 63 year old F with a previous history of no obstructive coronary disease history of Takotsubo cardiomyopathy status post cardiac catheterization in February 2019. She presented to the hospital this time with nonspecific cardiac complaints and was initially noted to be tachycardic. Patient had some nausea and was given intravenous Zofran and then later and was noted to have bradycardia with prolonged QT intervals. Cardiology was called to evaluate her further. She is had no dizziness or diaphoresis no near syncope or syncope. Her diuretic dose had been adjusted at home and it appeared that she was in mild congestive heart failure. She was also noted to be rather hypertensive when she presented. [] Past Medical History Allergies/Adverse Reactions: Allergies ciprofloxacin [From Cipro] Allergy (Verified 06/20/19 20:26) Shortness of breath ciprofloxacin HCl [From Cipro] Allergy (Verified 06/20/19 20:26) Shortness of breath cyclobenzaprine [From Flexeril] Allergy (Verified 06/20/19 20:26) Rash cyclobenzaprine HCl [From Flexeril] Allergy (Verified 06/20/19 20:26) Rash ketorolac tromethamine [From Toradol] Allergy (Verified 06/20/19 20:26) Chest tightness sulfamethoxazole [From Bactrim] Allergy (Verified 06/20/19 20:26) Itching trimethoprim [From Bactrim] Allergy (Verified 06/20/19 20:26) Itching metformin Adverse Reaction (Verified 06/20/19 20:26) Other headache valacyclovir HCl [From Valtrex] Adverse Reaction (Verified 06/20/19 20:26) Other Home Medications: Ambulatory Orders Medication Instructions Recorded Ropinirole HCl [Requip] 1 mg PO QHS 05/07/16 Haloperidol 2 mg PO TID PRN PRN 09/17/18 Levothyroxine Sodium 75 mcg PO DAILY 09/17/18 Simvastatin 40 mg PO QHS 09/17/18 Candesartan Cilexetil [Atacand] 16 mg PO DAILY 11/30/18 Hydrocodone Bitart/Apap 5-325 1 tab PO Q6H PRN PRN 11/30/18 [[place] 5/325] Hydroxychloroquine [Plaquenil] 200 mg PO BIDCM 11/30/18 Montelukast Sodium 10 mg PO DAILY 11/30/18 Pregabalin [Lyrica] 225 mg PO BID 11/30/18 sertraline 50 mg tablet 25 mg PO DAILY tab 01/09/19 Insulin Glargine,Hum.rec.anlog 18 unit SQ BREAKFAST 03/21/19 [Soni Gustafson] Carvedilol [Coreg] 6.25 mg PO BID #0 03/23/19 allopurinol 100 mg tablet 100 mg PO QHS tab 03/30/19 nystatin 100,000 unit/gram topical 1 applic TOPICAL BID PRN 03/30/19 powder Insulin Regular, Human [Humulin R 25 unit SQ BREAKFAST 04/11/19 U-500 Kwikpen] Insulin Regular, Human [Humulin R 25 unit SQ DINNER 04/11/19 U-500 Kwikpen] Cephalexin [Keflex] 500 mg PO 4X/DAY 06/20/19 Codeine Phosphate/Guaifenesin 10 ml PO Q6H PRN 06/20/19 [Virtussin AC Liquid] Past Medical History (Chronic Problems): Chronic Problems (Last Reviewed 06/20/19 @ 23:26 by Jacques Santos MD) Fibromyalgia (Chronic) Type 2 diabetes mellitus (Chronic) 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) Diabetic gastroparesis (Chronic) GERD (gastroesophageal reflux disease) (Chronic) Seizure disorder (Chronic) Paroxysmal atrial fibrillation (Chronic) Chronic pain syndrome (Chronic) Takotsubo cardiomyopathy (Chronic) Iron deficiency anemia (Chronic) Depression (Chronic) Morbid obesity with BMI of 40.0-44.9, adult (Chronic) HLD (hyperlipidemia) (Chronic) Benign essential HTN (Chronic) Surgical History: appendectomy, cholecystectomy Psychiatric History: Depression 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 pertinent 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 history - *Family History Paternal Family History: Family History (Last Reviewed 06/20/19 @ 23:19 by Jacques Santos MD) Mother Myocardial infarction Father Congestive heart failure Other Diabetes Heart disease History Items: Heart Disease, - - Bone cancer Maternal Family History: Family History (Last Reviewed 06/20/19 @ 23:19 by Jacques Santos MD) Mother Myocardial infarction Father Congestive heart failure Other Diabetes Heart disease History Items: COPD, Diabetes, Heart Disease, - - Smoker Smoking Status: Never smoker Alcohol: None Drugs: None Review of Systems - Review of Systems General: Denies: Fever, Night Sweats, Fatigue HEENT: Denies: Vision Change Cardiovascular: Denies: Chest Discomfort, Shortness of Breath, Orthopnea, PND, Peripheral Edema, Palpitations, Lightheadedness, Dizziness, Near Syncope, Syncope Respiratory: Denies: Cough, Sputum Production, Hemoptysis Gastrointestinal: Denies: Hematemesis, Hematochezia, Melena Genitourinary: Denies: Dysuria, Hematuria Skin: Denies: Rash Neurological: Denies: Dizziness Psychiatric: Denies: Anxiety Endocrine: Denies: Heat Intolerance Hematologic/ Lymphatic: Denies: Lymph Node Enlargement Subjectve: Pleasant lady in no distress Objective: Vital Signs Temp Pulse Resp BP Pulse Ox 98.5 F 68 18 101/42 L 97 06/22/19 03:30 06/22/19 06:48 06/22/19 03:30 06/22/19 03:30 06/22/19 03:30 Oxygen Flow Rate (L/min) 4 Oxygen Delivery Method Nasal Cannula Weight: 288 lb 12.889 oz Body Mass Index (BMI) 46.5 Finger Stick Blood Glucose 480 Intake and Output for Last 24 Hours 06/21/19 06/21/19 06/22/19 00:59 23:59 23:59 Intake Total 60 / 60 Output Total 425 / 425 Balance -365 / -365 General: Awake, Alert, Oriented x 3 HEENT: PERRL, EOMI, Sclera Non Icteric Neck: Supple, Good ROM, No Lymph Node Enlargement Lungs: Clear to auscultation Cardiovascular: Regular Rhythm, Normal S1, Normal S2, No Murmurs, No Rubs, No Gallops 06/22/19 00:25: Sodium 138, Potassium 4.2, Chloride 101, Carbon Dioxide 32.0, Anion Gap 5, BUN 16, Creatinine 1.42 H, Est GFR (MDRD) Af Amer 48 L, Est GFR (MDRD) Non-Af 40 L, BUN/Creatinine Ratio 11.3, Glucose 172 H, Calcium 8.8, Magnesium 2.0 06/22/19 00:25: Troponin I 0.394 H 06/22/19 03:14: Troponin I 0.392 H 06/22/19 05:50: Troponin I 0.302 H Rhythm: EKG: Sinus rhythm with QTC of 670 ms ECHO: Preserved left ventricular systolic function as per echocardiogram from February 2019 Stress Test: Cardiac Cath: No obstructive coronary disease PCI: CT Surgery: Holter monitor: EPS: PPM: CXR: Chest CT Scan: Assessment/Plan 1. Prolonged QT interval * The etiology of the above is likely secondary to medication with Haldol and Zofran. The above has been discontinued. I would recommend an EKG this morning. Her potassium is normal and her magnesium is also over 2. * We will continue to observe her to make sure there are no arrhythmias noted. * 2. Hypertension * Controlled continue current medical therapy * Thank you for allowing me to participate in the care of your patient. Please don't hesitate to call if any issues arise
[2019-06-22] MEDS: Glucerna Shake 120 ML LIQUID 60 ML PO ×2 (08:55→17:10)
[2019-06-22] MEDS: Hydroxychloroquine 200 MG Tablet PO ×2 (08:55→17:05)
[2019-06-22] MEDS: Furosemide 40 MG/4 ML Vial IV (08:56)
[2019-06-22] MEDS: Enoxaparin 40 MG/0.4 ML Syringe SC (08:56)
[2019-06-22] MEDS: guaiFENesin 1,200 MG Tablet 1200 MG PO ×2 (08:57→21:55)
[2019-06-22] MEDS: Montelukast 10 MG Tablet PO (08:57)
--- NOTE | 2019-06-22 09:30 | EKG12_ITS ---
Test Reason : Blood Pressure : / mmHG Vent. Rate : 069 BPM Atrial Rate : 069 BPM P-R Int : 156 ms QRS Dur : 090 ms QT Int : 632 ms P-R-T Axes : 018 -49 228 degrees QTc Int : 677 ms Normal sinus rhythm Left axis deviation Inferior infarct , age undetermined ST & Marked T wave abnormality, consider anterolateral ischemia Prolonged QT Abnormal ECG Confirmed by JOSE MANUEL CURRY, SHAHIDA ([id number]), medical editor VIDAL MCDERMOTT ([id number]) on 06/24/2019 11:18:24 AM Referred By: Jacques Santos Confirmed By:SHAHIDA RICHARD MD
--- NOTE | 2019-06-22 09:34 | RAD_ITS ---
STUDY: X-RAY CHEST REASON FOR EXAM: Female, 63 years old. Shortness of breath. TECHNIQUE: PA and lateral views of the chest. COMPARISON: Comparison is made with prior study dated June 20, 2019. FINDINGS: EKG electrodes are seen. Since prior study, the CHF has improved. Minimal residual changes persist. Blunting of both costophrenic angles posteriorly. There is mild cardiac enlargement. Normal mediastinum and judith. Normal visualized pulmonary arteries. There is atherosclerotic calcification of the aortic arch with tortuosity. There are diffuse degenerative changes of the visualized thoracic spine. Increased kyphosis. Normal visualized ribs, clavicles, and shoulders. There is no demonstrated abnormality of the visualized soft tissue structures of the upper abdomen. RAD/Chest PA and Lateral IMPRESSION: There has been improvement in the CHF. Mild residual changes persist. Blunting of the costophrenic angles bilaterally. Electronically Signed: rTistan De La Garza, at 12:39 EST , Service support ,
--- NOTE | 2019-06-22 11:00 | CASEMGMT ---
RN CM Assessment Presentation: Flash Pulmonary Edema Intro role of CM and purpose of RN CM assessment to patient in room. Demographics, PCP and Pharmacy verified. Pt is awake, alert and able to participate in assessment. Pt states she has been independent at home, lives with Stepson and granddaughter. Pt denies concerns at this time. States she hopes to return home. PT/OT notes: SBA for ambulating to bathroom, Min assist for dressing. Ambulated 10' with SBA. PCP: Dr. Devan Parks Specialists: Dr. Haskins, cardiology Preferred [facility]acy: [facility] Insurance: [facility] Prescription Benefit: yes LNOK: Linda cantu Living Arrangements: One story home, steps into home. Pt ambulatory without assistive device. Family assists with household needs. Transportation: Sister Linda drives pt to appointments DME: cane, wheeled walker, wheelchair. Pt is using wheeled walker at hospital. SNF/HHC: [facility] in past; [facility] past. Pt is agreeable to [facility] if HHS if recommended. Patient DC goals: Home DC PLAN: Anticipate Home, possibly [facility] if recommended. Suellen JOHN RN ACM
[2019-06-22 11:36] LABS: Bedside Glucose 268 mg/dL (70-110)
--- NOTE | 2019-06-22 12:16 | PCM.PROGNOTE ---
<Davonte Hurley - Last Filed: 06/22/19 12:16> Patient Problems: Active and Suspected Problems (Last Reviewed 06/20/19 @ 23:26 by Jacques Santos MD) Flash pulmonary edema (Acute) Subjective: No chest pain, pressure, tightness, or heaviness. No palpitations, racing, or fluttering in the chest. No lightheadedness or dizziness. Breathing subjectively has improved, she is still requiring up to 4 L/min of oxygen however her sats are okay and she may be able to be weaned down. The patient takes Haldol only about once per week for chronic nausea-states she has been tried on many medications in the past and is the only thing that has worked for her. She is okay with this being discontinued for now. She takes Zoloft for depression but does not feel that is working so she is not concerned about coming off of it. Currently she has no nausea. - Physical Exam Vitals/I&O's: Vital Signs Temp Pulse Resp BP Pulse Ox 97.9 F 67 14 101/62 97 06/22/19 07:51 06/22/19 10:01 06/22/19 10:01 06/22/19 07:51 06/22/19 10:01 Oxygen Flow Rate (L/min) 4 Oxygen Delivery Method Nasal Cannula Weight: 288 lb 12.889 oz Body Mass Index (BMI) 46.5 Finger Stick Blood Glucose 480 Intake and Output for Last 24 Hours 06/21/19 06/21/19 06/22/19 00:59 23:59 23:59 Intake Total 60 / 60 Output Total 425 / 425 Balance -365 / -365 General: Alert, Oriented x3, Cooperative HEENT: Atraumatic, PERRLA, EOMI, Normocephalic Neck: Supple, No JVD, Negative Carotid Bruits Lungs: No rales - BL bases, Diminished Cardiovascular: Regular rate, No murmurs Abdomen: Bowel Sounds Present, Soft, Non Tender Extremities: No edema, Capillary Refill Less than 3 Seconds Skin: No rashes, No breakdown Musculoskeletal: No Tenderness to Palpation of Joints or Extremities Neurological: Cranial nerves II-XII grossly intact Psych/Mental Status: Normal Affect, Appropriate, Alert and oriented to time, place, person, mood and affect Laboratory Results 06/21/19 16:11: POC Glucose 122 H 06/21/19 21:43: POC Glucose 168 H 06/22/19 00:25: Sodium 138, Potassium 4.2, Chloride 101, Carbon Dioxide 32.0, Anion Gap 5, BUN 16, Creatinine 1.42 H, Estim Creat Clear Calc 37.47, Est GFR (MDRD) Af Amer 48 L, Est GFR (MDRD) Non-Af 40 L, BUN/Creatinine Ratio 11.3, Glucose 172 H, Calcium 8.8, Magnesium 2.0 06/22/19 00:25: Troponin I 0.394 H 06/22/19 01:41: POC Glucose 156 H 06/22/19 03:14: Troponin I 0.392 H 06/22/19 05:50: Troponin I 0.302 H 06/22/19 06:32: POC Glucose 184 H 06/22/19 11:29: POC Glucose 268 H Current Medications Hydrocodone Bitart/Acetaminophen ([place] 5mg-325mg) 1 tablet PO Q6H PRN PRN PRN Reason: PAIN -05/28 Last Admin: 06/22/19 05:57 Dose: 1 tablet Documented by: Allopurinol (Zyloprim) 100 mg PO DAILY@2200 [facility] Last Admin: 06/21/19 21:56 Dose: 100 mg Documented by: Atorvastatin Calcium (Lipitor) 20 mg PO QHS [facility] Last Admin: 06/21/19 21:56 Dose: 20 mg Documented by: Dextrose (D50w Syringe) 0 gm IV X1 PRN; Protocol PRN Reason: Hypoglycemia Enoxaparin Sodium (Lovenox) 40 mg SC DAILY@1000 [facility] Last Admin: 06/22/19 08:56 Dose: 40 mg Documented by: Furosemide (Lasix) 40 mg IV DAILY [facility] Glucagon () 1 mg IM .X1 PRN PRN Reason: Hypoglycemia Guaifenesin (Mucinex) 1,200 mg PO BID [facility] Last Admin: 06/22/19 08:57 Dose: 1,200 mg Documented by: Guaifenesin/Codeine Phosphate (Robitussin Ac) 10 ml PO Q6H PRN PRN PRN Reason: COUGH [facility]oquine [facility]) [facility] Last Admin: 06/22/19 08:55 Dose: 200 mg Documented by: Insulin Glargine (Lantus (Bkc)) 18 units SC BREAKFAST [facility] Last Admin: 06/22/19 08:53 Dose: 18 u Documented by: Insulin Human Lispro (Humalog Kwikpen ([facility])) 0 unit SC ACHS & 0200 [facility]; Protocol Last Admin: 06/22/19 11:54 Dose: 3 u Documented by: Insulin Human Regular (Humulin R U-500 ([facility])) 25 units SC BREAKFAST [facility] Last Admin: 06/21/19 17:06 Dose: 25 u Documented by: Insulin Human Regular (Humulin R U-500 ([facility])) 25 units SC DINNER [facility] Last Admin: 06/21/19 17:07 Dose: 10 u Documented by: Levothyroxine Sodium (Synthroid) 75 mcg PO DAILY@0600 [facility] Last Admin: 06/22/19 05:07 Dose: 75 mcg Documented by: Losartan Potassium (Cozaar) 75 mg PO DAILY [facility] Last Admin: 06/22/19 09:08 Dose: Not Given Documented by: Montelukast Sodium (Singulair) 10 mg PO DAILY [facility] Last Admin: 06/22/19 08:57 Dose: 10 mg Documented by: Nutritional Formula (Lactose Free) (Glucerna Shake) 60 ml PO 4X/DAY [facility] Last Admin: 06/22/19 08:55 Dose: 60 ml Documented by: Nystatin (Mycostatin Powder) 1 applic TOPICAL BID PRN PRN; Protocol PRN Reason: rash Potassium Chloride (K-Dur) 40 meq PO BIDCM [facility] Last Admin: 06/22/19 08:52 Dose: 40 meq Documented by: Pramipexole Dihydrochloride (Mirapex) 0.5 mg PO QHS [facility] Last Admin: 06/21/19 21:56 Dose: 0.5 mg Documented by: Sodium Chloride () 10 - 40 ml IV UD PRN PRN Reason: SALINE FLUSH Last Admin: 06/21/19 02:00 Dose: 10 ml Documented by: Medical Necessity - Tobacco Use Smoking Status: Never smoker Assessment/Plan All Active Problems (Last Reviewed 06/20/19 @ 23:26 by Jacques Santos MD) History of type 1 diabetes mellitus (Acute) Acute respiratory failure with hypoxia (Acute) Flash pulmonary edema (Acute) NSTEMI (non-ST elevated myocardial infarction) (Resolved) Hypokalemia (Acute) Congestive heart failure (Acute) 1. Acute on chronic diastolic CHF exacerbation, with acute hypoxic respiratory failure - improving. Does not use o2 or cpap at home, requiring 4lpm o2. Repeat CXR with improvement in congestion. Lasix to qd with bump in Cr. 2. Long QT - zofran, lyrica, haldol, sertraline DCd. Recheck AM EKG. 3. Elevated troponin - EKG unchanged. New T wave inversions, long QT. Cardiology consulted. 4. HTN urgency - resolved. 5. DMt2 with morbid obesity - continue long acting + U500 + SSI, hx gastroparesis 6. Recent UTI - completed keflex. 7. P. Afib - SR. rate controlled. 8. HLD - statin 9. CAD - Hx NV - statin, coreg, losartan. not on aspirin plavix. Hx takotsubo. 10. Fibromyalgia - lyrica (stopped), plaquenil 11. Depression - zoloft stopped. 12. Chronic nausea - haldol stopped. DVT ppx: lovenox DC planning: PTOT. This patient was seen by Davonte Hulrey PA-C under the supervision of Doctor Min. <Ceasar Copeland F - Last Filed: 06/22/19 13:51> - Physical Exam Vitals/I&O's: Vital Signs Temp Pulse Resp BP Pulse Ox 97.9 F 67 14 101/62 97 06/22/19 07:51 06/22/19 10:01 06/22/19 10:01 06/22/19 07:51 06/22/19 10:01 Oxygen Flow Rate (L/min) 4 Oxygen Delivery Method Nasal Cannula Weight: 288 lb 12.889 oz Body Mass Index (BMI) 46.5 Finger Stick Blood Glucose 480 Intake and Output for Last 24 Hours 06/21/19 06/21/19 06/22/19 00:59 23:59 23:59 Intake Total 475 / 475 Output Total 1125 / 1125 Balance -650 / -650 Laboratory Results 06/21/19 16:11: POC Glucose 122 H 06/21/19 21:43: POC Glucose 168 H 06/22/19 00:25: Sodium 138, Potassium 4.2, Chloride 101, Carbon Dioxide 32.0, Anion Gap 5, BUN 16, Creatinine 1.42 H, Estim Creat Clear Calc 37.47, Est GFR (MDRD) Af Amer 48 L, Est GFR (MDRD) Non-Af 40 L, BUN/Creatinine Ratio 11.3, Glucose 172 H, Calcium 8.8, Magnesium 2.0 06/22/19 00:25: Troponin I 0.394 H 06/22/19 01:41: POC Glucose 156 H 06/22/19 03:14: Troponin I 0.392 H 06/22/19 05:50: Troponin I 0.302 H 06/22/19 06:32: POC Glucose 184 H 06/22/19 11:29: POC Glucose 268 H Current Medications Hydrocodone Bitart/Acetaminophen ([place] 5mg-325mg) 1 tablet PO Q6H PRN PRN PRN Reason: PAIN 1-05/28 Last Admin: 06/22/19 12:21 Dose: 1 tablet Documented by: Allopurinol (Zyloprim) 100 mg PO DAILY@2200 [facility] Last Admin: 06/21/19 21:56 Dose: 100 mg Documented by: Atorvastatin Calcium (Lipitor) 20 mg PO QHS [facility] Last Admin: 06/21/19 21:56 Dose: 20 mg Documented by: Dextrose (D50w Syringe) 0 gm IV X1 PRN; Protocol PRN Reason: Hypoglycemia Enoxaparin Sodium (Lovenox) 40 mg SC DAILY@1000 [facility] Last Admin: 06/22/19 08:56 Dose: 40 mg Documented by: Furosemide (Lasix) 40 mg IV DAILY [facility] Glucagon () 1 mg IM .X1 PRN PRN Reason: Hypoglycemia Guaifenesin (Mucinex) 1,200 mg PO BID [facility] Last Admin: 06/22/19 08:57 Dose: 1,200 mg Documented by: Guaifenesin/Codeine Phosphate (Robitussin Ac) 10 ml PO Q6H PRN PRN PRN Reason: COUGH Hydroxychloroquine Sulfate ([facility]il) [facility] Last Admin: 06/22/19 08:55 Dose: 200 mg Documented by: Insulin Glargine (Lantus (Bk)) 18 units SC BREAKFAST [facility] Last Admin: 06/22/19 08:53 Dose: 18 u Documented by: Insulin Human Lispro (Humalog Kwikpen ([facility])) 0 unit SC ACHS & 0200 [facility]; Protocol Last Admin: 06/22/19 11:54 Dose: 3 u Documented by: Insulin Human Regular (Humulin R U-500 (Bk)) 25 units SC BREAKFAST [facility] Last Admin: 06/21/19 17:06 Dose: 25 u Documented by: Insulin Human Regular (Humulin R U-500 (Bk)) 25 units SC DINNER [facility] Last Admin: 06/21/19 17:07 Dose: 10 u Documented by: Levothyroxine Sodium (Synthroid) 75 mcg PO DAILY@0600 [facility] Last Admin: 06/22/19 05:07 Dose: 75 mcg Documented by: Losartan Potassium (Cozaar) 75 mg PO DAILY [facility] Last Admin: 06/22/19 09:08 Dose: Not Given Documented by: Montelukast Sodium (Singulair) 10 mg PO DAILY [facility] Last Admin: 06/22/19 08:57 Dose: 10 mg Documented by: Nutritional Formula (Lactose Free) (Glucerna Shake) 60 ml PO 4X/DAY [facility] Last Admin: 06/22/19 08:55 Dose: 60 ml Documented by: Nystatin (Mycostatin Powder) 1 applic TOPICAL BID PRN PRN; Protocol PRN Reason: rash Potassium Chloride (K-Dur) 40 meq PO BIDCM [facility] Last Admin: 06/22/19 08:52 Dose: 40 meq Documented by: Pramipexole Dihydrochloride (Mirapex) 0.5 mg PO QHS [facility] Last Admin: 06/21/19 21:56 Dose: 0.5 mg Documented by: Sodium Chloride () 10 - 40 ml IV UD PRN PRN Reason: SALINE FLUSH Last Admin: 06/21/19 02:00 Dose: 10 ml Documented by: Code Visit Addendum: Dr. Copeland I personally examined the patient and reviewed the chart. I agree with the above. 63-year-old female with acute hypoxic respiratory failure in the setting of acute on chronic diastolic heart failure with pulmonary edema. We will continue with IV Lasix 40 mg daily as her creatinine is slowly rising. She had an echo done in March with an EF of 55% and stage II diastolic dysfunction. She had a prolonged QT interval overnight and her Lyrica as well as her Zoloft, Haldol and Zofran were discontinued. Cardiology was consulted to assist in management as she has also had an elevated troponin to 0.392. We will complete her outpatient course of Keflex for her UTI. Inpatient E&M: 41271 Subs Hosp L2
--- NOTE | 2019-06-22 12:44 | CASEMGMT ---
Patient has a Healthcare POA and Healthcare LW on file at [facility]. Mckayla SNEED REPRESENTATIVE
--- NOTE | 2019-06-22 14:31 | CASEMGMT ---
SW reviewed patient's chart and she was active with Palliative Care when she was at [facility] in March. SW called [facility] and they have not heard from patient for awhile. They still have an open file for patient so if she wants to continue that is fine and let them know. SW spoke with patient. Introduced self and role at [facility]. SW asked patient if she wanted to continue with Palliative Care. She said she does not think it is necessary. Mckayla SNEED MSW
[2019-06-22 16:26] LABS: Bedside Glucose 302 mg/dL (70-110)
[2019-06-22] MEDS: Atorvastatin Calcium 20 MG Tablet PO (21:56)
[2019-06-22] MEDS: Pramipexole Di-HCl 0.5 MG Tablet PO (21:56)
[2019-06-22] MEDS: Allopurinol 100 MG Tablet PO (21:56)
[2019-06-22 22:06] LABS: Bedside Glucose 181 mg/dL (70-110)
[2019-06-23] VITALS (11 sets, daily range): BP systolic 109–181; BP diastolic 49–86; PULSE 55–111; RESP 16–24; TEMP 36.6–37.1; O2SAT 95–99
[2019-06-23 00:23] LABS: Bacteria 0 SEEN /hpf (None Seen); Mucous, Urine 0 SEEN /hpf (<or=2+); Red Blood Cells-Urine 0 SEEN /hpf (0-5); White Blood Cells 0 SEEN /hpf (0-5)
[2019-06-23 00:33] LABS: Color, Urine Yellow (Yellow); Glucose, Dipstick Normal (Normal); Ketone-Dipstick Negative (Negative); Leukocyte Esterase-Dipstick Negative /ul (Negative); Nitrite-Dipstick Negative (Negative); Occult Blood-Urine Negative /ul (Negative); Protein-Dipstick Negative (Negative); Urine Bilirubin Dipstick Negative (Negative); Urine Clarity Clear (Clear); Urine Urobilinogen Normal (Normal)
[2019-06-23 00:49] LABS: Squamous Epithelial Cells - UA 0-5 SEEN /hpf (5-10)
[2019-06-23] MEDS: HYDROcodone Bitartrate/Apap 5/325 Tablet PO ×2 (04:06→15:51)
[2019-06-23 05:47] LABS: Absolute Lymphocyte Count 2.47 X10^3/uL (0.83-4.51); Absolute Neutrophil Count 6.6 X10^3/uL (2.0-7.7); Basophil# 0.07 X10^3/uL; Basophil% 0.7 % (0-1); Eosinophil# 0.43 X10^3/uL; Eosinophils% 4.1 % (0-5); Hematocrit 35.8 % (37-47); Lymphocyte # 2.47 X10^3/ul (4.0); Lymphocyte % 23.5 % (19-41); Mean Corp Hgb Conc 30.7 g/dL (32-36); Mean Corpuscular Hgb 27.6 pg (27.0-32.0); Mean Corpuscular Volume 89.7 fL (81-99); Mean Platelet Vol. 9.7 fl (6.2-12.0); Monocyte# 0.94 X10^3/uL; Monocyte% 8.9 % (0-10); NRBC Flagged by Analyzer 0 % (0-5); Neutrophil # 6.57 X10^3/uL (2.7-7.7); Neutrophil % 62.5 % (47-70); Platelet Count 238 K/mm3 (150-450); RBC Distribution Width CV 14.5 % (11.6-14.6); Red Blood Count 3.99 M/mm3 (4.2-5.4); White Blood Count 10.5 K/mm3 (4.4-11.0)
--- NOTE | 2019-06-23 05:55 | EKG12_ITS ---
Test Reason : RHYTHM Blood Pressure : / mmHG Vent. Rate : 110 BPM Atrial Rate : 110 BPM P-R Int : 124 ms QRS Dur : 078 ms QT Int : 386 ms P-R-T Axes : 028 -35 268 degrees QTc Int : 522 ms Sinus tachycardia Left axis deviation Septal infarct , age undetermined T wave abnormality, consider inferolateral ischemia Prolonged QT Abnormal ECG Confirmed by ABIMAEL CURRY, CAROLE ([id number]), image editor ADAMS GOODEN ([id number]) on 06/30/2019 3:03:26 PM Referred By: Jacques Santos Confirmed By:CAROLE VARGHESE MD
[2019-06-23 06:08] LABS: Anion Gap 5 (5-15); BUN 14 mg/dL (7-18); Calcium,Total 9.5 mg/dL (8.5-10.1); Chloride 101 mmol/L (98-107); Creatinine, Serum 1.08 mg/dL (0.55-1.02); EST Glomerular Filtration Rate 54 mL/min (>60); Est Glom Filt Rate - Afr Amer 66 mL/min (>60); Estimated Creatinine Clearance 49.26 ml/min; Glucose 163 mg/dL (74-106); Sodium Level 138 mmol/L (136-145)
[2019-06-23] MEDS: Levothyroxine 75 MCG Tablet PO (06:12)
[2019-06-23] MEDS: Insulin Lispro 100 UNIT/ML INSULN.PEN SC ×2 (06:32→18:17)
[2019-06-23 06:41] LABS: Bedside Glucose 150 mg/dL (70-110)
--- NOTE | 2019-06-23 09:20 | RAD_ITS ---
STUDY: X-RAY - LUMBAR SPINE REASON FOR EXAM: Female, 63 years old. Back pain. TECHNIQUE: 3 view(s) of the lumbar spine were obtained. COMPARISON: Comparison is made with prior study dated February 25, 2017. FINDINGS: Normal lumbar lordosis. There is no substantial scoliosis. There is a normal alignment of the vertebrae. There is multilevel endplate spondylosis of the lumbar vertebrae. There is multi-level degenerative disc disease with multi-level disc space narrowing. Facet joint osteoarthritis. The soft tissue structures are unremarkable. RAD/Lumbar Spine 2 or 3 Views IMPRESSION: Degenerative changes of the spine, as detailed above. Electronically Signed: Tristan De La Garza, at 13:25 EST , Service support ,
[2019-06-23] MEDS: Lidocaine 5% Patch 1 PATCH TOPICAL (09:53)
[2019-06-23] MEDS: Furosemide 40 MG/4 ML Vial IV ×2 (09:57→21:52)
[2019-06-23] MEDS: 0.9% Saline Lock 10 ML Syringe IV ×3 (09:57→21:56)
[2019-06-23] MEDS: Enoxaparin 40 MG/0.4 ML Syringe SC (09:57)
[2019-06-23] MEDS: Ipratropium/Albuterol Sulfate 3 ML AMPUL.NEB INHALATION ×2 (10:39→19:35)
--- NOTE | 2019-06-23 11:04 | PCM.PN.CARD ---
<Giovanni Avila H - Last Filed: 06/23/19 12:30> Subjectve: Patient seen and evaluated. She acknowledges ongoing nausea and shortness of breath. She denies any chest pain. Objective: Vital Signs Temp Pulse Resp BP Pulse Ox 97.8 F 111 H 24 H 154/82 H 95 06/23/19 09:20 06/23/19 10:53 06/23/19 10:53 06/23/19 09:20 06/23/19 09:20 Oxygen Flow Rate (L/min) 2 Oxygen Delivery Method Nasal Cannula Weight: 285 lb 0.923 oz Body Mass Index (BMI) 46.5 Finger Stick Blood Glucose 480 Intake and Output for Last 24 Hours 06/21/19 06/22/19 06/23/19 23:59 23:59 23:59 Intake Total 835 / 835 120 / 120 Output Total 1525 / 1525 550 / 550 Balance -690 / -690 -430 / -430 General: Healthy Appearing, Awake, Alert, Oriented x 3, Cooperative, - - uncomfortable HEENT: Atraumatic Oral: Moist Mucosa Neck: Positive JVD Lungs: Expiratory Wheezes-Con Cardiovascular: Regular Rhythm, Normal S1, Normal S2, No Murmurs, No Rubs Vascular: No Carotid Bruits Extremities: No Cyanosis, No Clubbing, No edema, Normal Capillary Refill Neurological: No Focal Motor or Sensory Deficit Psych/Mental Status: Appropriate 06/23/19 00:15: Urine Color Yellow, Urine Clarity Clear, Urine pH 8.0, Ur Specific [place] 1.010, Urine Protein Negative, Urine Glucose (UA) Normal, Urine Ketones Negative, Urine Occult Blood Negative, Urine Nitrite Negative, Urine Bilirubin Negative, Urine Urobilinogen Normal, Ur Leukocyte Esterase Negative, Urine RBC 0 SEEN, Urine WBC 0 SEEN 06/23/19 05:35: WBC 10.5, RBC 3.99 L, Hgb 11.0 L, Hct 35.8 L, MCV 89.7, MCH 27.6, MCHC 30.7 L, Plt Count 238, MPV 9.7, Immature Gran % (Auto) 0.300, Neut % (Auto) 62.5, Lymph % (Auto) 23.5, [place] % (Auto) 8.9, Eos % (Auto) 4.1, Baso % (Auto) 0.7, Absolute Neuts (auto) 6.6, Nucleated RBC % 0 06/23/19 05:35: Sodium 138, Potassium 5.0, Chloride 101, Carbon Dioxide 32.0, Anion Gap 5, BUN 14, Creatinine 1.08 H, Est GFR (MDRD) Af Amer 66, Est GFR (MDRD) Non-Af 54 L, BUN/Creatinine Ratio 13.0, Glucose 163 H, Calcium 9.5 Rhythm: EKG: ECHO: 03/19/2019 Interpretation Summary The study was technically difficult. Diluted definity 4ml given slow IV push to enhance endocardial definition. The estimated ejection fraction is 55 %. Stage 2 diastolic dysfunction. The left atrium is mildly enlarged. Trivial tricuspid valve insufficiency. Bicuspid aortic valve. The study was technically difficult. Stress Test: Cardiac Cath: 03/09/2019 CONCLUSIONS Normal coronary arteries Normal LV size, wall motion,and systolic function RECOMMENDATIONS Medical therapy CORONARY ANGIOGRAPHY DOMINANCE: Right Dominant LEFT HEART ASSESSMENT Left Ventricular Ejection Fraction: by LV Gram 60 % Normal LV wall motion Normal Left Ventricular systolic function Normal Left Ventricular systolic function LEFT MAIN: Angiographically normal LEFT ANTERIOR DESCENDING ARTERY: Angiographically normal CIRCUMFLEX ARTERY: Angiographically normal RIGHT CORONARY ARTERY: Angiographically normal PCI: CT Surgery: Holter monitor: EPS: PPM: CXR: Chest CT Scan: Medical Necessity - Tobacco Use Smoking Status: Never smoker Assessment/Plan 1. Prolonged QT Patient's QT interval was 676. Her Zoloft and Lyrica has been on hold. Her IV Zofran has been discontinued, she did receive 1 dose in the emergency department. She is prescribed Haldol 3 times daily but claims to have only taken one time this past week. QT interval at this morning was noted be 543. She continues to have inverted T waves and rhythm is sinus. Her troponin has remained relatively flat at 0.017, 0.394, 0.392, and 0.302. We will continue to hold QT prolonging medications and continue to monitor for dysrhythmia. 2. Hypertension Patient's blood pressure continues to fluctuate. She does acknowledge ongoing nausea and back discomfort, which may be resulting in elevated blood pressure. However, she has presented multiple times for hypertensive urgency. Thus, she will proceed with a renal artery ultrasound to ensure no underlying renal artery stenosis. At this time, due to her ongoing nausea and abdominal discomfort, this cannot be completed. Vascular we will continue to monitor patient's status and complete when able. She will continue with losartan 75 mg p.o. daily. Depending on her blood pressure response, she may require further medication such as amlodipine to assist with blood pressure and flash pulmonary edema. Her relatively flat troponin may be result of her pulmonary flash edema and hypertension. 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 She will undergo a limited echocardiogram to evaluate LV function. Her most recent heart catheterization in February 2019 showed angiographically normal coronary arteries and ejection fraction of 60%. She will continue with IV Lasix therapy. She does has expiratory wheezes on exam, which may be result of underlying pulmonary pathology. Her chest x-ray appears to be improving. Patient's case was discussed with Dr. Ellison, who will also evaluate patient. Thank you for allowing us to participate in the patients plan of care, if you have any questions please do not hesitate to call. This note was generated using a voice recognition system and there may be incorrect words, spelling or punctuation that were not noted when reviewing the office note prior to saving. <Son Ellison - Last Filed: 06/23/19 19:55> Objective: Vital Signs Temp Pulse Resp BP Pulse Ox 98.7 F 105 H 20 H 134/86 H 97 06/23/19 15:40 06/23/19 15:40 06/23/19 15:40 06/23/19 15:40 06/23/19 15:40 Oxygen Flow Rate (L/min) 2 Oxygen Delivery Method Nasal Cannula Weight: 285 lb 0.923 oz Body Mass Index (BMI) 46.5 Finger Stick Blood Glucose 480 Intake and Output for Last 24 Hours 06/21/19 06/22/19 06/23/19 23:59 23:59 23:59 Intake Total 835 / 835 560 / 560 Output Total 1525 / 1525 2650 / 2650 Balance -690 / -690 -2090 / -208906/23/19 00:15: Urine Color Yellow, Urine Clarity Clear, Urine pH 8.0, Ur Specific [place] 1.010, Urine Protein Negative, Urine Glucose (UA) Normal, Urine Ketones Negative, Urine Occult Blood Negative, Urine Nitrite Negative, Urine Bilirubin Negative, Urine Urobilinogen Normal, Ur Leukocyte Esterase Negative, Urine RBC 0 SEEN, Urine WBC 0 SEEN 06/23/19 05:35: WBC 10.5, RBC 3.99 L, Hgb 11.0 L, Hct 35.8 L, MCV 89.7, MCH 27.6, MCHC 30.7 L, Plt Count 238, MPV 9.7, Immature Gran % (Auto) 0.300, Neut % (Auto) 62.5, Lymph % (Auto) 23.5, [place] % (Auto) 8.9, Eos % (Auto) 4.1, Baso % (Auto) 0.7, Absolute Neuts (auto) 6.6, Nucleated RBC % 0 06/23/19 05:35: Sodium 138, Potassium 5.0, Chloride 101, Carbon Dioxide 32.0, Anion Gap 5, BUN 14, Creatinine 1.08 H, Est GFR (MDRD) Af Amer 66, Est GFR (MDRD) Non-Af 54 L, BUN/Creatinine Ratio 13.0, Glucose 163 H, Calcium 9.5 Rhythm: EKG: ECHO: Stress Test: Cardiac Cath: PCI: CT Surgery: Holter monitor: EPS: PPM: CXR: Chest CT Scan: Assessment/Plan Addendum: Date: 06-23-19 The patient was independently evaluated and examined. The patient's main concern was her ongoing nausea and her chronic shortness of breath/dyspnea. She denied ongoing chest discomfort. She has been noted on examination to have diminished breath sounds. Her cardiovascular exam demonstrated a regular rhythm. Her electrocardiograms have demonstrated sinus rhythm with prolonged QT interval and T wave abnormality compatible with myocardial ischemia in the anterior, lateral, and inferior distributions. Her follow-up ECGs have demonstrated that her QT intervals have decreased and her T wave changes are less prominent. She has undergone further evaluation with a transthoracic echocardiogram. This was a limited study to evaluate left ventricular wall motion and systolic function. This demonstrated regional wall motion abnormalities with respect to the mid segments being hypokinetic in the apical segments being akinetic and an estimated LVEF of 20%. At the present time the patient has had concerns of ongoing hypertension. She is being evaluated. Her medicines are being adjusted. When she is able would be reasonable to consider further evaluation of her renal artery status which is a renal artery duplex study to evaluate for any obvious evidence of renal artery stenosis that may contribute to her hypertension and/or her events with respect to concerns of CHF/pulmonary edema. She has a history of a stress-induced cardiomyopathy. She is undergone diagnostic cardiac catheterization in 2015 with no angiographically significant CAD. She underwent diagnostic cardiac catheterization in February 2019 again with no angiographically significant appearing CAD. At that time her LV systolic function was preserved. Her follow-up transthoracic echocardiogram in March of this year demonstrated preserved LV systolic function. Now her left ventricle demonstrates regional wall motion abnormalities compatible with a recurrent stress-induced cardiomyopathy. He is also had a prolonged QT interval. There is been some concern as to whether this is been also related to her medications. Thus medications affecting this have been placed on hold. At the present time from a cardiovascular standpoint she will need to continue medical therapy based upon her aforementioned findings and concerns of a recurrent stress-induced cardiomyopathy. This will include agents such as beta blockers and afterload reducing agents. She will also need volume control with diuretic therapy. Again holding medications that prolong her QT interval appear to be prudent at this time. This note was generated using a voice recognition system and there may be incorrect words, spelling or punctuation that were not noted when reviewing the office note prior to saving.
[2019-06-23 11:56] LABS: Bedside Glucose 166 mg/dL (70-110)
--- NOTE | 2019-06-23 12:10 | PCM.PROGNOTE ---
<Davonte Hurley - Last Filed: 06/23/19 13:51> Patient Problems: Active and Suspected Problems (Last Reviewed 06/20/19 @ 23:26 by Jacques Santos MD) Flash pulmonary edema (Acute) Subjective: + nausea and vomiting this AM. No chest pain. No palp. SOB improved. No fever/chills. no cough. - Physical Exam Vitals/I&O's: Vital Signs Temp Pulse Resp BP Pulse Ox 97.8 F 111 H 24 H 154/82 H 95 06/23/19 09:20 06/23/19 10:53 06/23/19 10:53 06/23/19 09:20 06/23/19 09:20 Oxygen Flow Rate (L/min) 2 Oxygen Delivery Method Nasal Cannula Weight: 285 lb 0.923 oz Body Mass Index (BMI) 46.5 Finger Stick Blood Glucose 480 Intake and Output for Last 24 Hours 06/21/19 06/22/19 06/23/19 23:59 23:59 23:59 Intake Total 835 / 835 120 / 120 Output Total 1525 / 1525 550 / 550 Balance -690 / -690 -430 / -430 General: Alert, Oriented x3, Cooperative HEENT: Atraumatic, PERRLA, EOMI, Normocephalic Neck: Supple, No JVD, Negative Carotid Bruits Lungs: Clear to auscultation, Normal air movement Cardiovascular: Regular rate, No murmurs Abdomen: Bowel Sounds Present, Soft, Non Tender Extremities: No edema, Capillary Refill Less than 3 Seconds Skin: No rashes, No breakdown Musculoskeletal: No Tenderness to Palpation of Joints or Extremities Neurological: Cranial nerves II-XII grossly intact Psych/Mental Status: Normal Affect, Appropriate, Alert and oriented to time, place, person, mood and affect Laboratory Results 06/22/19 16:19: POC Glucose 302 H 06/22/19 21:52: POC Glucose 181 H 06/23/19 00:15: Urine Color Yellow, Urine Clarity Clear, Urine pH 8.0, Ur Specific [place] 1.010, Urine Protein Negative, Urine Glucose (UA) Normal, Urine Ketones Negative, Urine Occult Blood Negative, Urine Nitrite Negative, Urine Bilirubin Negative, Urine Urobilinogen Normal, Ur Leukocyte Esterase Negative, Urine RBC 0 SEEN, Urine WBC 0 SEEN, Ur Squamous Epith Cells 0-5 SEEN, Urine Bacteria 0 SEEN, Urine Mucus 0 SEEN 06/23/19 05:35: WBC 10.5, RBC 3.99 L, Hgb 11.0 L, Hct 35.8 L, MCV 89.7, MCH 27.6, MCHC 30.7 L, RDW Std Deviation 47.0 H, RDW Coeff of Be 14.5, Plt Count 238, MPV 9.7, Immature Gran % (Auto) 0.300, Neut % (Auto) 62.5, Lymph % (Auto) 23.5, [place] % (Auto) 8.9, Eos % (Auto) 4.1, Baso % (Auto) 0.7, Absolute Neuts (auto) 6.6, Absolute Lymphs (auto) 2.47, Nucleated RBC % 0 06/23/19 05:35: Sodium 138, Potassium 5.0, Chloride 101, Carbon Dioxide 32.0, Anion Gap 5, BUN 14, Creatinine 1.08 H, Estim Creat Clear Calc 49.26, Est GFR (MDRD) Af Amer 66, Est GFR (MDRD) Non-Af 54 L, BUN/Creatinine Ratio 13.0, Glucose 163 H, Calcium 9.5 06/23/19 06:31: POC Glucose 150 H 06/23/19 11:52: POC Glucose 166 H Current Medications Hydrocodone Bitart/Acetaminophen ([place] 5mg-325mg) 1 tablet PO Q6H PRN PRN PRN Reason: PAIN 1-05/28 Last Admin: 06/23/19 04:06 Dose: 1 tablet Documented by: Albuterol/Ipratropium (Duoneb) 3 ml INHALATION Q6HWA.RT [facility] Last Admin: 06/23/19 10:39 Dose: 3 ml Documented by: Allopurinol (Zyloprim) 100 mg PO DAILY@2200 [facility] Last Admin: 06/22/19 21:56 Dose: 100 mg Documented by: Atorvastatin Calcium (Lipitor) 20 mg PO QHS [facility] Last Admin: 06/22/19 21:56 Dose: 20 mg Documented by: Dextrose (D50w Syringe) 0 gm IV X1 PRN; Protocol PRN Reason: Hypoglycemia Enoxaparin Sodium (Lovenox) 40 mg SC DAILY@1000 [facility] Last Admin: 06/23/19 09:57 Dose: 40 mg Documented by: Furosemide (Lasix) 40 mg IV DAILY [facility] Last Admin: 06/23/19 09:57 Dose: 40 mg Documented by: Glucagon () 1 mg IM .X1 PRN PRN Reason: Hypoglycemia Guaifenesin (Mucinex) 1,200 mg PO BID [facility] Last Admin: 06/22/19 21:55 Dose: 1,200 mg Documented by: Guaifenesin/Codeine Phosphate (Robitussin Ac) 10 ml PO Q6H PRN PRN PRN Reason: COUGH Hydroxychloroquine Sulfate (Plaquenil) 200 mg PO [facility]ID[facility] Last Admin: 06/22/19 17:05 Dose: 200 mg Documented by: Insulin Human Lispro (Humalog Kwikpen ([facility])) 0 unit SC ACHS [facility]; Protocol Last Admin: 06/23/19 06:32 Dose: 1 units Documented by: Insulin Human Regular (Humulin R U-500 ([facility])) 35 units SC BREAKFAST [facility] Last Admin: 06/23/19 09:54 Dose: 35 units Documented by: Insulin Human Regular (Humulin R U-500 ([facility])) 35 units SC DINNER [facility] Levothyroxine Sodium (Synthroid) 75 mcg PO DAILY@0600 [facility] Last Admin: 06/23/19 06:12 Dose: 75 mcg Documented by: Lidocaine (Lidoderm Patch) 1 patch TOPICAL DAILY [facility]; Protocol Last Admin: 06/23/19 09:53 Dose: 1 patch Documented by: Losartan Potassium (Cozaar) 75 mg PO DAILY [facility] Last Admin: 06/22/19 09:08 Dose: Not Given Documented by: Montelukast Sodium (Singulair) 10 mg PO DAILY [facility] Last Admin: 06/22/19 08:57 Dose: 10 mg Documented by: Nutritional Formula (Lactose Free) (Glucerna Shake) 60 ml PO 4X/DAY [facility] Last Admin: 06/23/19 09:54 Dose: Not Given Documented by: Nystatin (Mycostatin Powder) 1 applic TOPICAL BID PRN PRN; Protocol PRN Reason: rash Potassium Chloride (K-Dur) 40 meq PO BID[facility] Last Admin: 06/22/19 17:05 Dose: 40 meq Documented by: Pramipexole Dihydrochloride (Mirapex) 0.5 mg PO QHS [facility] Last Admin: 06/22/19 21:56 Dose: 0.5 mg Documented by: Sodium Chloride () 10 - 40 ml IV UD PRN PRN Reason: SALINE FLUSH Last Admin: 06/23/19 09:57 Dose: 10 ml Documented by: Medical Necessity - Tobacco Use Smoking Status: Never smoker Assessment/Plan All Active Problems (Last Reviewed 06/20/19 @ 23:26 by Jacques Santos MD) History of type 1 diabetes mellitus (Acute) Acute respiratory failure with hypoxia (Acute) Flash pulmonary edema (Acute) NSTEMI (non-ST elevated myocardial infarction) (Resolved) Hypokalemia (Acute) Congestive heart failure (Acute) 1. Acute on chronic diastolic CHF exacerbation, with acute hypoxic respiratory failure - improving. Continue to wean o2 as tolerated. 2. Long QT - zofran, lyrica, haldol, sertraline DCd. Recheck AM EKG. 3. Elevated troponin - EKG with improvement in QT, still prolonged. New T wave inversions, long QT. Cardiology consulted. 4. HTN urgency - resolved. 5. DMt2 with morbid obesity - resumed home dosage of insulin U500 and will adjust to response. 6. Recent UTI - completed keflex. Repeat UA is negative. 7. P. Afib - mild tachy this AM. Likely from Nausea/vomiting. 8. HLD - statin 9. CAD - Hx [place] - statin, coreg, losartan. not on aspirin plavix. Hx takotsubo. 10. Fibromyalgia - lyrica (stopped), plaquenil. Gabapentin could be used an an alternative to lyrica as it does not have the same qt prolongation. 11. Depression - zoloft stopped. prozac does not have qt prolongation listed as an adverse effect so could be an alternative if she requires one. She did not feel that she needed the zoloft stating that it did not do anything to help her. 12. Chronic nausea - ideally the patient would be resumed on haldol with monitoring of the QT interval. She normally requires this about 1 x per week for nausea. DVT ppx: lovenox DC planning: PTOT. This patient was seen by Davonte Hurley PA-C under the supervision of Doctor Marilynn <Betty Subramanian - Last Filed: 06/23/19 15:43> - Physical Exam Vitals/I&O's: Vital Signs Temp Pulse Resp BP Pulse Ox 97.8 F 101 H 24 H 154/82 H 95 06/23/19 09:20 06/23/19 14:59 06/23/19 10:53 06/23/19 09:20 06/23/19 09:20 Oxygen Flow Rate (L/min) 2 Oxygen Delivery Method Nasal Cannula Weight: 285 lb 0.923 oz Body Mass Index (BMI) 46.5 Finger Stick Blood Glucose 480 Intake and Output for Last 24 Hours 06/21/19 06/22/19 06/23/19 23:59 23:59 23:59 Intake Total 835 / 835 340 / 340 Output Total 1525 / 1525 1450 / 1450 Balance -690 / -690 -1110 / -1110 Laboratory Results 06/22/19 16:19: POC Glucose 302 H 06/22/19 21:52: POC Glucose 181 H 06/23/19 00:15: Urine Color Yellow, Urine Clarity Clear, Urine pH 8.0, Ur Specific [place] 1.010, Urine Protein Negative, Urine Glucose (UA) Normal, Urine Ketones Negative, Urine Occult Blood Negative, Urine Nitrite Negative, Urine Bilirubin Negative, Urine Urobilinogen Normal, Ur Leukocyte Esterase Negative, Urine RBC 0 SEEN, Urine WBC 0 SEEN, Ur Squamous Epith Cells 0-5 SEEN, Urine Bacteria 0 SEEN, Urine Mucus 0 SEEN 06/23/19 05:35: WBC 10.5, RBC 3.99 L, Hgb 11.0 L, Hct 35.8 L, MCV 89.7, MCH 27.6, MCHC 30.7 L, RDW Std Deviation 47.0 H, RDW Coeff of Be 14.5, Plt Count 238, MPV 9.7, Immature Gran % (Auto) 0.300, Neut % (Auto) 62.5, Lymph % (Auto) 23.5, [place] % (Auto) 8.9, Eos % (Auto) 4.1, Baso % (Auto) 0.7, Absolute Neuts (auto) 6.6, Absolute Lymphs (auto) 2.47, Nucleated RBC % 0 06/23/19 05:35: Sodium 138, Potassium 5.0, Chloride 101, Carbon Dioxide 32.0, Anion Gap 5, BUN 14, Creatinine 1.08 H, Estim Creat Clear Calc 49.26, Est GFR (MDRD) Af Amer 66, Est GFR (MDRD) Non-Af 54 L, BUN/Creatinine Ratio 13.0, Glucose 163 H, Calcium 9.5 06/23/19 06:31: POC Glucose 150 H 06/23/19 11:52: POC Glucose 166 H Current Medications Hydrocodone Bitart/Acetaminophen ([place] 5mg-325mg) 1 tablet PO Q6H PRN PRN PRN Reason: PAIN -05/28 Last Admin: 06/23/19 04:06 Dose: 1 tablet Documented by: Albuterol/Ipratropium (Duoneb) 3 ml INHALATION Q6HWA.RT [facility] Last Admin: 06/23/19 10:39 Dose: 3 ml Documented by: Allopurinol (Zyloprim) 100 mg PO DAILY@2200 [facility] Last Admin: 06/22/19 21:56 Dose: 100 mg Documented by: Atorvastatin Calcium (Lipitor) 20 mg PO QHS [facility] Last Admin: 06/22/19 21:56 Dose: 20 mg Documented by: Dextrose (D50w Syringe) 0 gm IV X1 PRN; Protocol PRN Reason: Hypoglycemia Enoxaparin Sodium (Lovenox) 40 mg SC DAILY@1000 [facility] Last Admin: 06/23/19 09:57 Dose: 40 mg Documented by: Furosemide (Lasix) 40 mg IV DAILY [facility] Last Admin: 06/23/19 09:57 Dose: 40 mg Documented by: Glucagon () 1 mg IM .X1 PRN PRN Reason: Hypoglycemia Guaifenesin (Mucinex) 1,200 mg PO BID [facility] Last Admin: 06/23/19 14:26 Dose: Not Given Documented by: Guaifenesin/Codeine Phosphate (Robitussin Ac) 10 ml PO Q6H PRN PRN PRN Reason: COUGH Hydroxychloroquine Sulfate (Plaquenil) 200 mg PO BIDCM [facility] Last Admin: 06/23/19 14:26 Dose: Not Given Documented by: Insulin Human Lispro (Humalog Kwikpen ([facility])) 0 unit SC [facility]; Protocol Last Admin: 06/23/19 14:27 Dose: Not Given Documented by: Insulin Human Regular (Humulin R U-500 ([facility])) 35 units SC BREAKFAST [facility] Last Admin: 06/23/19 09:54 Dose: 35 units Documented by: Insulin Human Regular (Humulin R U-500 ([facility])) 35 units SC [facility] Levothyroxine Sodium (Synthroid) 75 mcg PO DAILY@0600 [facility] Last Admin: 06/23/19 06:12 Dose: 75 mcg Documented by: Lidocaine (Lidoderm Patch) 1 patch TOPICAL DAILY [facility]; Protocol Last Admin: 06/23/19 09:53 Dose: 1 patch Documented by: Losartan Potassium (Cozaar) 75 mg PO DAILY [facility] Last Admin: 06/23/19 14:26 Dose: Not Given Documented by: Montelukast Sodium (Singulair) 10 mg PO DAILY [facility] Last Admin: 06/23/19 14:26 Dose: Not Given Documented by: Nutritional Formula (Lactose Free) (Glucerna Shake) 60 ml PO 4X/DAY [facility] Last Admin: 06/23/19 14:27 Dose: Not Given Documented by: Nystatin (Mycostatin Powder) 1 applic TOPICAL BID PRN PRN; Protocol PRN Reason: rash Potassium Chloride (K-Dur) 40 meq PO BIDCM [facility] Last Admin: 06/23/19 14:26 Dose: Not Given Documented by: Pramipexole Dihydrochloride (Mirapex) 0.5 mg PO QHS [facility] Last Admin: 06/22/19 21:56 Dose: 0.5 mg Documented by: Sodium Chloride () 10 - 40 ml IV UD PRN PRN Reason: SALINE FLUSH Last Admin: 06/23/19 09:57 Dose: 10 ml Documented by: Assessment/Plan Patient seen by Davonte Hurley PA-C under my supervision. Patient seen and examined this morning. She was complaining of nausea and vomiting. Haldol is on hold on account of prolonged QT and she states that is only Haldol and Compazine work for her nausea and vomiting. She also complains of back pain, which is due to her lyrica having been discontinued due to prolonged QT. Complains of a cough. Review of systems otherwise negative. Electronics Engineer on board on account of elevated troponin and prolonged QT. o/e: Vital Signs Height 5 ft 6 in Weight: 285 lb 0.923 oz Weight in Pounds 285.1 lbs Pulse Ox 95 Temperature 97.8 F Pulse Rate 101 Respiratory Rate 24 Blood Pressure [BP] 145/76 Blood Pressure 154/82 Blood Pressure Position Sitting General: Alert, Oriented x3, Cooperative HEENT: Atraumatic, PERRLA, EOMI, Normocephalic Neck: Supple, No JVD, Negative Carotid Bruits Lungs: mild wheezing in all lung davalos, with few crackles. on 2L of oxygen Cardiovascular: Regular rate, No murmurs Abdomen: Bowel Sounds Present, Soft, Non Tender Extremities: No edema, Capillary Refill Less than 3 Seconds Skin: No rashes, No breakdown Musculoskeletal: No Tenderness to Palpation of Joints or Extremities; no tenderness to palpation of her lower back Neurological: Cranial nerves II-XII grossly intact Psych/Mental Status: Normal Affect, Appropriate, Alert and oriented to time, place, person, mood and affect Plan is continue diuresis and try to wean off of oxygen as tolerated. X-ray of the lumbar spine obtained showed degenerative changes of the spine which is not new. Continue to hold on Lyrica and Haldol. Start Compazine as needed for nausea. Rest of management as per Davonte Hurley PA-C's notes which I reviewed and endorsed. Code Visit Inpatient E&M: 53184 Subs Hosp L3
--- NOTE | 2019-06-23 15:01 | EKG12_ITS ---
Test Reason : AM EKG Blood Pressure : / mmHG Vent. Rate : 104 BPM Atrial Rate : 104 BPM P-R Int : 142 ms QRS Dur : 074 ms QT Int : 360 ms P-R-T Axes : 022 -53 012 degrees QTc Int : 473 ms Sinus tachycardia Left axis deviation Cannot rule out Inferior infarct , age undetermined T wave abnormality, consider lateral ischemia Abnormal ECG Anterior Changes noted Confirmed by ABIMAEL CURRY, CAROLE ([id number]), technical editor ADAMS GOODEN ([id number]) on 06/30/2019 3:09:01 PM Referred By: Jacques Santos Confirmed By:CAROLE VARGHESE MD
[2019-06-23 17:11] LABS: Bedside Glucose 178 mg/dL (70-110)
[2019-06-23] MEDS: Morphine 2 MG/ML Syringe IV (19:35)
[2019-06-23] MEDS: guaiFENesin 1,200 MG Tablet 1200 MG PO (21:48)
[2019-06-23] MEDS: Carvedilol 12.5 MG Tablet PO (21:48)
[2019-06-23] MEDS: Atorvastatin Calcium 20 MG Tablet PO (21:48)
[2019-06-23] MEDS: Pramipexole Di-HCl 0.5 MG Tablet PO (21:48)
[2019-06-23] MEDS: Allopurinol 100 MG Tablet PO (21:48)
[2019-06-24] VITALS (10 sets, daily range): BP systolic 114–144; BP diastolic 58–94; PULSE 84–110; RESP 16–20; TEMP 36.2–37.2; O2SAT 94–98
[2019-06-24 00:36] LABS: Bedside Glucose 114 mg/dL (70-110)
[2019-06-24 05:43] LABS: Anion Gap 11 (5-15); BUN 15 mg/dL (7-18); BUN/Creat Ratio 12.8 RATIO (10-20); Chloride 97 mmol/L (98-107); Creatinine, Serum 1.17 mg/dL (0.55-1.02); EST Glomerular Filtration Rate 49 mL/min (>60); Est Glom Filt Rate - Afr Amer 60 mL/min (>60); Estimated Creatinine Clearance 45.47 ml/min; Glucose 128 mg/dL (74-106); Potassium 4.3 mmol/L (3.5-5.1); Sodium Level 139 mmol/L (136-145)
--- NOTE | 2019-06-24 05:55 | EKG12_ITS ---
Test Reason : AM EKG Blood Pressure : / mmHG Vent. Rate : 081 BPM Atrial Rate : 081 BPM P-R Int : 158 ms QRS Dur : 086 ms QT Int : 468 ms P-R-T Axes : 029 -49 245 degrees QTc Int : 543 ms Normal sinus rhythm Left axis deviation Inferior infarct , age undetermined Marked T wave abnormality, consider anterolateral ischemia Confirmed by ABIMAEL CURRY, CAROLE ([id number]), art editor ADAMS GOODEN ([id number]) on 06/30/2019 3:13:54 PM Referred By: Jacques Santos Confirmed By:CAROLE VARGHESE MD
[2019-06-24] MEDS: Levothyroxine 75 MCG Tablet PO (06:13)
[2019-06-24] MEDS: Insulin Lispro 100 UNIT/ML INSULN.PEN SC ×3 (06:34→20:56)
[2019-06-24 06:41] LABS: Bedside Glucose 161 mg/dL (70-110)
[2019-06-24] MEDS: Ipratropium/Albuterol Sulfate 3 ML AMPUL.NEB INHALATION (07:15)
[2019-06-24] MEDS: Morphine 2 MG/ML Syringe IV ×3 (07:56→17:45)
--- NOTE | 2019-06-24 08:08 | EKG12_ITS ---
Test Reason : Blood Pressure : / mmHG Vent. Rate : 105 BPM Atrial Rate : 105 BPM P-R Int : 192 ms QRS Dur : 080 ms QT Int : 390 ms P-R-T Axes : 030 -63 133 degrees QTc Int : 515 ms Sinus tachycardia Left axis deviation T wave abnormality, consider anterolateral ischemia Abnormal ECG Confirmed by ABIMAEL CURRY, CAROLE ([id number]), publication editor ADAMS GOODEN ([id number]) on 06/30/2019 3:15:02 PM Referred By: Jacques Santos Confirmed By:CAROLE VARGHESE MD
[2019-06-24] MEDS: Enoxaparin 40 MG/0.4 ML Syringe SC (08:32)
[2019-06-24] MEDS: guaiFENesin 1,200 MG Tablet 1200 MG PO (08:35)
[2019-06-24] MEDS: Furosemide 40 MG/4 ML Vial IV (08:36)
[2019-06-24] MEDS: Lidocaine 5% Patch 1 PATCH TOPICAL (08:37)
--- NOTE | 2019-06-24 09:34 | PN.CARD_ITS ---
<Giovanni Avila - Last Filed: 06/24/19 11:27> Subjectve: Patient was seen and evaluated. She does not answer questions appropriately. She answers predominantly with a moan. She is constantly motion and appears uncomfortable. She also appears to be more confused today compared to yesterday. Objective: Vital Signs Temp Pulse Resp BP Pulse Ox 97.7 F L 93 18 114/67 98 06/24/19 03:40 06/24/19 07:28 06/24/19 07:15 06/24/19 03:40 06/24/19 07:15 Oxygen Flow Rate (L/min) 3 Oxygen Delivery Method Nasal Cannula Weight: 269 lb 13.533 oz Body Mass Index (BMI) 46.5 Finger Stick Blood Glucose 480 Intake and Output for Last 24 Hours 06/22/19 06/23/19 06/24/19 23:59 23:59 23:59 Intake Total 835 / 835 560 / 620 120 / 120 Output Total 1525 / 1525 2650 / 3150 1100 / 1100 Balance -690 / -690 -2090 / -2530 -980 / -980 General: Awake, Alert, Disoriented, - - Uncomfortable Neck: No JVD Lungs: Diminished Con Bases Cardiovascular: Regular Rhythm, No Murmurs, No Rubs, No Gallops Vascular: No Carotid Bruits Extremities: No Cyanosis, No Clubbing, No edema, Normal Capillary Refill Musculoskeletal: No Erythema Neurological: No Focal Motor or Sensory Deficit - Restless 06/24/19 05:15: Sodium 139, Potassium 4.3, Chloride 97 L, Carbon Dioxide 31.0, Anion Gap 11, BUN 15, Creatinine 1.17 H, Est GFR (MDRD) Af Amer 60, Est GFR (MDRD) Non-Af 49 L, BUN/Creatinine Ratio 12.8, Glucose 128 H, Calcium 10.0 Rhythm: EKG: ECHO: 06/23/2019 Interpretation Summary Limited views were obtained. The study was technically difficult. Contrast injection was performed. Severe segmental systolic dysfunction (see wall motion). Estimate ejection fraction is 20%. Left atrium is mildly enlarged. Mild diffuse aortic valve thickening. Mild focal aortic valve calcification. Stress Test: Cardiac Cath: PCI: CT Surgery: Holter monitor: EPS: PPM: CXR: Chest CT Scan: Medical Necessity - Tobacco Use Smoking Status: Never smoker Assessment/Plan 1. Prolonged QT interval Patient's QTC this morning was noted to be 607. Her underlying rhythm appears to be sinus rhythm with frequent immature ventricular complexes in a bigeminy pattern with continual T wave abnormality. At this time, we will continue to hold QT prolonging medications. 2. Tak[place]sobo cardiomyopathy She underwent a limited echocardiogram on 06/23/2019 that showed reduced ejection fraction of 20%. She is requiring less oxygen today. She is however more confused and restless compared to yesterday. Her kidney function is improving. Her blood pressure continues to fluctuate. On physical exam she has diminished bilateral lower lung bases. At this time, she will continue with IV Lasix 40 mg daily. She will continue with Coreg 12.5 mg p.o. twice daily and losartan 50 mg p.o. twice daily. Due to her confusion she is not taking her p.o. medications, which may complicate long-term treatment. If her shortness of breath worsens, she may require secondary dose of Lasix. As noted previously her troponin has remained relatively flat and her heart catheterization February 2019 showed angiographically normal coronary arteries. 3. Hypertension As noted above, this continues to fluctuate. Her medications will be titrated accordingly. Her fluctuation may be a result of her physical activity and restlessness. If further medication adjustment is required she may benefit from such medications as hydralazine or amlodipine. 4. Confusion It is unclear if this is related to CO2 retention or other etiology such as withdrawal or GI related issues given her nausea. Ultimately, this will be deferred to primary team. Her venous lab draw this morning showed CO2 of 31. Her ABG showed a CO2 of 31. Patient's case was discussed further with Dr. Ellison, who will also further evaluate patient. Thank you for allowing us to participate in the patients plan of care, if you have any questions please do not hesitate to call. This note was generated using a voice recognition system and there may be incor rect words, spelling or punctuation that were not noted when reviewing the office note prior to saving. <Son Ellison - Last Filed: 06/24/19 19:41> Objective: Vital Signs Temp Pulse Resp BP Pulse Ox 98.8 F 105 H 18 122/77 H 94 06/24/19 16:00 06/24/19 16:00 06/24/19 16:00 06/24/19 16:00 06/24/19 16:00 Oxygen Flow Rate (L/min) 3 Oxygen Delivery Method Room Air Weight: 269 lb 13.533 oz Body Mass Index (BMI) 46.5 Finger Stick Blood Glucose 480 Intake and Output for Last 24 Hours 06/22/19 06/23/19 06/24/19 23:59 23:59 23:59 Intake Total 835 / 835 560 / 620 240 / 240 Output Total 1525 / 1525 2650 / 3150 1780 / 1780 Balance -690 / -690 -2090 / -2530 -1540 / -1540 06/24/19 05:15: Sodium 139, Potassium 4.3, Chloride 97 L, Carbon Dioxide 31.0, Anion Gap 11, BUN 15, Creatinine 1.17 H, Est GFR (MDRD) Af Amer 60, Est GFR (MDRD) Non-Af 49 L, BUN/Creatinine Ratio 12.8, Glucose 128 H, Calcium 10.0 06/24/19 05:15: Magnesium 1.9 06/24/19 09:15: Urine Color Yellow, Urine Clarity Sl. Cloudy, Urine pH 7.0, Ur Specific [place] 1.005, Urine Protein 30 H, Urine Glucose (UA) Normal, Urine Ketones 15 H, Urine Occult Blood 25 H, Urine Nitrite Negative, Urine Bilirubin Negative, Urine Urobilinogen Normal, Ur Leukocyte Esterase Negative, Urine RBC 0-5 SEEN, Urine WBC 0-5 SEEN 06/24/19 09:43: pH 7.54 H, Bicarbonate Actual 29.7 H, POC Total CO2 31, Base Exc ess 7 H, O2 Saturation 97, ABG pCO2 34.4 L, ABG pO2 76 Rhythm: EKG: ECHO: Stress Test: Cardiac Cath: PCI: CT Surgery: Holter monitor: EPS: PPM: CXR: Chest CT Scan: Assessment/Plan Addendum: Date: 06-24-19 The patient was independently evaluated and examined. The patient has had episodes of waxing and waning nausea and discomfort. She has required a sitter in her room with her. She has been noted on examination to have diminished breath sounds. Her cardiovascular exam demonstrated a regular rhythm. Her electrocardiograms have demonstrated sinus rhythm with prolonged QT interval and T wave abnormality compatible with myocardial ischemia in the anterior, lateral, and inferior distributions. Her QT interval waxes and wanes. Her T wave changes are similar. She has undergone further evaluation with a transthoracic echocardiogram. This was a limited study to evaluate left ventricular wall motion and systolic function. This demonstrated regional wall motion abnormalities with respect to the mid segments being hypokinetic in the apical segments being akinetic and an estimated LVEF of 20%. At the present time the patient has had concerns of ongoing hypertension. She is being evaluated. Her medicines are being adjusted. When she is able would be reasonable to consider further evaluation of her renal artery status which is a renal artery duplex study to evaluate for any obvious evidence of renal artery stenosis that may contribute to her hypertension and/or her events with respect to concerns of CHF/pulmonary edema. She has a history of a stress-induced cardiomyopathy. She is undergone diagnostic cardiac catheterization in 2015 with no angiographically significant CAD. She underwent diagnostic cardiac catheterization in February 2019 again with no angiographically significant appearing CAD. At that time her LV systolic function was preserved. Her follow-up transthoracic echocardiogram in March of this year demonstrated preserved LV systolic function. Now her left ventricle demonstrates regional wall motion abnormalities compatible with a recurrent stress-induced cardiomyopathy. At the present time from a cardiovascular standpoint she will need to continue medical therapy based upon her aforementioned findings and concerns of a recurrent stress-induced cardiomyopathy. This will include agents such as beta blockers and afterload reducing agents. She will also need volume control with diuretic therapy. Her IV diuretics can be altered to oral diuretics when she is thought stable to do so. Again holding medications that prolong her QT interval appear to be prudent at this time. This note was generated using a voice recognition system and there may be incorrect words, spelling or punctuation that were not noted when reviewing the office note prior to saving.
[2019-06-24 09:40] LABS: Mucous, Urine 0 SEEN /hpf (<or=2+)
[2019-06-24 09:45] LABS: Base Excess 7 mmol/L (-2 to +2); Bicarbonate 29.7 mmol/L (22-26); Blood Gas Specimen Type ART; O2 Delivery Device Room Air; PO2 76 mmHG (75-100); SITE L Radial; SO2 97 % (95-99); Time Given 942; Total Carbon Dioxide 31 mmol/L; pCO2 34.4 mmHg (35-45); pH 7.54 (7.35-7.45)
[2019-06-24 09:50] LABS: Color, Urine Yellow (Yellow); Glucose, Dipstick Normal (Normal); Ketone-Dipstick 15 mg/dl (Negative); Leukocyte Esterase-Dipstick Negative /ul (Negative); Nitrite-Dipstick Negative (Negative); Occult Blood-Urine 25 /ul (Negative); Protein-Dipstick 30 mg/dl (Negative); Specific Gravity, Urine 1.005 (1.002-1.030); Urine Bilirubin Dipstick Negative (Negative); Urine Clarity Sl. Cloudy (Clear); Urine Urobilinogen Normal (Normal)
[2019-06-24 09:58] LABS: Bacteria RARE /hpf (None Seen); Red Blood Cells-Urine 0-5 SEEN /hpf (0-5); Squamous Epithelial Cells - UA 0-5 SEEN /hpf (5-10); White Blood Cells 0-5 SEEN /hpf (0-5)
--- NOTE | 2019-06-24 11:59 | PN_ITS ---
Patient Problems: Active and Suspected Problems (Last Reviewed 06/20/19 @ 23:26 by Jacques Santos MD) Flash pulmonary edema (Acute) Subjective: Patient seen and examined. She has been much more agitated, according to her nurse. Patient is communicating well, but not very coherent. She kept saying help me, help me) during review. When asked what the problem was, she affirmed it was due to her back pain. She has a complaint of burning with urination. Patient kept on morning during review. Vitals/I&O's: Vital Signs Temp Pulse Resp BP Pulse Ox 98.9 F 94 16 144/94 H 96 06/24/19 10:00 06/24/19 10:00 06/24/19 10:00 06/24/19 10:00 06/24/19 10:00 Oxygen Flow Rate (L/min) 3 Oxygen Delivery Method Room Air Weight: 269 lb 13.533 oz Body Mass Index (BMI) 46.5 Finger Stick Blood Glucose 480 Intake and Output for Last 24 Hours 06/22/19 06/23/19 06/24/19 23:59 23:59 23:59 Intake Total 835 / 835 560 / 620 120 / 120 Output Total 1525 / 1525 2650 / 3150 1440 / 1440 Balance -690 / -690 -2090 / -2530 -1320 / -1320 General: Alert, agitated HEENT: Atraumatic, PERRLA, EOMI, Normocephalic Neck: Supple, No JVD, Negative Carotid Bruits Lungs: mild wheezing in all lung davalos, with few crackles. on 2L of oxygen Cardiovascular: Regular rate, No murmurs Abdomen: Bowel Sounds Present, Soft, Non Tender Extremities: No edema, Capillary Refill Less than 3 Seconds Skin: No rashes, No breakdown Musculoskeletal: No Tenderness to Palpation of Joints or Extremities Neurological: Cranial nerves II-XII grossly intact Psych/Mental Status: agitated Laboratory Results 06/23/19 17:05: POC Glucose 178 H 06/23/19 21:57: POC Glucose 114 H 06/24/19 05:15: Sodium 139, Potassium 4.3, Chloride 97 L, Carbon Dioxide 31.0, Anion Gap 11, BUN 15, Creatinine 1.17 H, Estim Creat Clear Calc 45.47, Est GFR (MDRD) Af Amer 60, Est GFR (MDRD) Non-Af 49 L, BUN/Creatinine Ratio 12.8, Glucose 128 H, Calcium 10.0 06/24/19 06:32: POC Glucose 161 H 06/24/19 09:15: Urine Color Yellow, Urine Clarity Sl. Cloudy, Urine pH 7.0, Ur Specific [place] 1.005, Urine Protein 30 H, Urine Glucose (UA) Normal, Urine Ketones 15 H, Urine Occult Blood 25 H, Urine Nitrite Negative, Urine Bilirubin Negative, Urine Urobilinogen Normal, Ur Leukocyte Esterase Negative, Urine RBC 0-5 SEEN, Urine WBC 0-5 SEEN, Ur Squamous Epith Cells 0-5 SEEN, Urine Bacteria RARE, Urine Mucus 0 SEEN 06/24/19 09:43: Specimen Type ART, Sample Site L Radial, pH 7.54 H, Bicarbonate Actual 29.7 H, POC Total CO2 31, Base Excess 7 H, O2 Saturation 97, ABG pCO2 34.4 L, ABG pO2 76, O2 Delivery Device Room Air, Blood Gas Notified Whom HOSP , Blood Gas Notified Time 942 Current Medications Hydrocodone Bitart/Acetaminophen ([place] 5mg-325mg) 1 tablet PO Q6H PRN PRN PRN Reason: PAIN 1-05/28 Last Admin: 06/23/19 15:51 Dose: 1 tablet Documented by: Albuterol/Ipratropium (Duoneb) 3 ml INHALATION Q6HWA.RT [facility] Last Admin: 06/24/19 07:15 Dose: 3 ml Documented by: Allopurinol (Zyloprim) 100 mg PO DAILY@2200 [facility] Last Admin: 06/23/19 21:48 Dose: 100 mg Documented by: Atorvastatin Calcium (Lipitor) 20 mg PO QHS [facility] Last Admin: 06/23/19 21:48 Dose: 20 mg Documented by: Carvedilol (Coreg) 12.5 mg PO BID [facility] Last Admin: 06/24/19 11:39 Dose: Not Given Documented by: Dextrose (D50w Syringe) 0 gm IV X1 PRN; Protocol PRN Reason: Hypoglycemia Enoxaparin Sodium (Lovenox) 40 mg SC DAILY@1000 [facility] Last Admin: 06/24/19 08:32 Dose: 40 mg Documented by: Furosemide (Lasix) 40 mg IV DAILY [facility] Last Admin: 06/24/19 08:36 Dose: 40 mg Documented by: Gabapentin (Neurontin) 200 mg PO TIDCM [facility] Last Admin: 06/24/19 11:39 Dose: Not Given Documented by: Glucagon () 1 mg IM .X1 PRN PRN Reason: Hypoglycemia Guaifenesin (Mucinex) 1,200 mg PO BID [facility] Last Admin: 06/24/19 08:35 Dose: 1,200 mg Documented by: Guaifenesin/Codeine Phosphate (Robitussin Ac) 10 ml PO Q6H PRN PRN PRN Reason: COUGH Hydroxychloroquine Sulfate (Plaquenil) 200 mg PO BIDCM [facility] Last Admin: 06/24/19 11:39 Dose: Not Given Documented by: Insulin Human Lispro (Humalog Kwikpen (Bk)) 0 unit SC ACHS [facility]; Protocol Last Admin: 06/24/19 06:34 Dose: 1 units Documented by: Insulin Human Regular (Humulin R U-500 ([facility])) 35 units SC BREAKFAST [facility] Last Admin: 06/24/19 08:55 Dose: Not Given Documented by: Insulin Human Regular (Humulin R U-500 ([facility])) 35 units SC DINNER [facility] Last Admin: 06/23/19 18:17 Dose: 35 units Documented by: Levothyroxine Sodium (Synthroid) 75 mcg PO DAILY@0600 [facility] Last Admin: 06/24/19 06:13 Dose: 75 mcg Documented by: Lidocaine (Lidoderm Patch) 1 patch TOPICAL DAILY [facility]; Protocol Last Admin: 06/24/19 08:37 Dose: 1 patch Documented by: Losartan Potassium (Cozaar) 50 mg PO BID [facility] Last Admin: 06/24/19 11:39 Dose: Not Given Documented by: Montelukast Sodium (Singulair) 10 mg PO DAILY [facility] Last Admin: 06/24/19 11:36 Dose: Not Given Documented by: Morphine Sulfate () 2 mg IV Q4H PRN PRN PRN Reason: Pain Score 6-10/10 Last Admin: 06/24/19 07:56 Dose: 2 mg Documented by: Nutritional Formula (Lactose Free) (Glucerna Shake) 60 ml PO 4X/DAY [facility] Last Admin: 06/24/19 11:39 Dose: Not Given Documented by: Nystatin (Mycostatin Powder) 1 applic TOPICAL BID PRN PRN; Protocol PRN Reason: rash Potassium Chloride (K-Dur) 40 meq PO BIDCM [facility] Last Admin: 06/24/19 11:41 Dose: Not Given Documented by: Pramipexole Dihydrochloride (Mirapex) 0.5 mg PO QHS [facility] Last Admin: 06/23/19 21:48 Dose: 0.5 mg Documented by: Sodium Chloride () 10 - 40 ml IV UD PRN PRN Reason: SALINE FLUSH Last Admin: 06/23/19 21:56 Dose: 10 ml Documented by: STROKE Vital Signs/Narrative: Vital Signs Temp Pulse Resp BP Pulse Ox 06/24/19 10:00 98.9 F 94 16 144/94 H 96 Medical Necessity - Tobacco Use Smoking Status: Never smoker Assessment/Plan All Active Problems (Last Reviewed 06/20/19 @ 23:26 by Jacques Snatos MD) History of type 1 diabetes mellitus (Acute) Acute respiratory failure with hypoxia (Acute) Flash pulmonary edema (Acute) NSTEMI (non-ST elevated myocardial infarction) (Resolved) Hypokalemia (Acute) Congestive heart failure (Acute) 1. Acute on chronic systolic heart failure * shortness of breath has improved; was originally diagnosed as acute on chronic HFpEF, but repeat echo showed EF as below * she still however remains on 2L of oxygen. * will dc IV lasix and switch to PO lasix * 2D echo(; severe segmental systolic dysfunction, with EF of 20%, and mild enlarged left atrium. Previous EF was 55% (from 04/06), so this shows a significant decrease in her EF * 2. Acute metabolic encephalopathy * cause is not very clear. It is likely due to back pain, as patient keeps complaining of back pain * UA done was negative, though she said she was having pain with urination. Patient recently completed a course of Keflex * I think her being off her medications due to QT prolongation is also contributing, * repeat EKG this morning showed further prolongation of QT, to 607ms; therefore meds cannot be resumed * 2. Prolonged QT: * QT further prolonged today to 607ms. * all QT prolonging meds on hold- zofran, lyrica, haldol, sertraline. * cardiology on board * will continue monitoring. keep potassium >4 and magnesium >2 * 3. Respiratory alkalosis: * ABG done today o/a of confusion showed pH of 7.54, with bicarb of 29.7, and pCO2 of 34.4. * I think this is likely due to patient hyperventilating due to agitation. Bicarb is 32 from BMP. * persistent nausea and vomiting is also likely contributing to alkalosis. * will switch lasix to PO lasix. give compazine to help with nausea * continue with breathing treatments * 4. Elevated troponins: * cardiology on board; advocate conservative management for now. Per cardiology, they are concerneda bout stress induced cadiolmyopathy. She does have a history of takotsubo cardiomyopathy.l * 2D echo: as under 1. * 5. Hypertension * had hypertensive urgency on admission * BP now in 140s systolic. BP ranges from 180s systolic to 80s systolic. * having renal USG today to assess for renal artery stenosis * on carvedilol and losartan * 6. Type 2 diabetes mellitus: on U-500 insulin 35IU qpm. This was held today as she was refusing to eat. ISS. Dennis CASTANEDA 7. History of paroxysmal afib: on carvedilol 8. Hyperlipidemia: on statin 9. History of Takotsubo's cardiomyopathy and CAD: on coreg, losartan and statin 10. History of depression and fibromyalgia: zoloft held o/a of QT prolongation. Lyrica also held. 11. chronic nausea: * says elisha and compazine work for her nausea, and nothing else. * continue compazine DVT prophylaxis: lovenox Code Visit Inpatient E&M: 41894 Subs Hosp L3
[2019-06-24 12:31] LABS: Bedside Glucose 177 mg/dL (70-110)
[2019-06-24 13:16] LABS: Magnesium 1.9 mg/dL (1.6-2.6)
[2019-06-24 17:01] LABS: Bedside Glucose 219 mg/dL (70-110)
[2019-06-24] MEDS: Gabapentin 100 MG Capsule 200 MG PO (17:30)
--- NOTE | 2019-06-24 19:33 | NURSING ---
pt's cpot 5/5 however pt is not following commands at this time; it is not safe to give oral meds. MD aware. repositioned pt, provided back rub, distraction (TV on in room and calm quiet conversation), and emotional support.
[2019-06-24] MEDS: Carvedilol 12.5 MG Tablet PO (20:56)
[2019-06-24] MEDS: Pramipexole Di-HCl 0.5 MG Tablet PO (20:56)
[2019-06-24 21:10] LABS: Bedside Glucose 253 mg/dL (70-110)
[2019-06-24] MEDS: HYDROcodone Bitartrate/Apap 5/325 Tablet PO (23:36)
[2019-06-25 02:58] VITALS: BP 105/59; PULSE 99; RESP 19; TEMP 36.1; O2SAT 95
--- NOTE | 2019-06-25 03:43 | RAD_ITS ---
STUDY: X-RAY - ABDOMEN/PELVIS REASON FOR EXAM: Female, 63 years old. Pain. TECHNIQUE: PICC line COMPARISON: None. FINDINGS: Normal visualized lung bases. There is a loop of small bowel slightly distended within the left upper quadrant measuring up to 3.4 cm. This may indicate localized ileus versus early small bowel obstruction. Nonspecific mild increase gas pattern throughout remainder of the bowel seen with no significant dilatation. There is no demonstrated free abdominal air. The visualized liver, spleen and kidneys are grossly normal in size and morphology. Normal soft tissue structures. There are diffuse degenerative changes of the visualized lumbar spine. RAD/Abdomen Single View (Portable) IMPRESSION: Possible localized ileus in the left upper quadrant versus early small bowel obstruction. Clinical correlation recommended. Electronically Signed: Nivia Thorpe MD at 5:57 EST , Service support ,
[2019-06-25] MEDS: Morphine 2 MG/ML Syringe IV ×2 (04:27→22:13)
[2019-06-25] MEDS: 0.9% Saline Lock 10 ML Syringe IV ×2 (04:27→22:15)
[2019-06-25 04:34] LABS: Absolute Lymphocyte Count 2.07 X10^3/uL (0.83-4.51); Absolute Neutrophil Count 10.4 X10^3/uL (2.0-7.7); Basophil# 0.12 X10^3/uL; Basophil% 0.8 % (0-1); Eosinophil# 0.16 X10^3/uL; Eosinophils% 1.1 % (0-5); Hematocrit 43.9 % (37-47); Hemoglobin 14.1 g/dL (12.0-15.0); Lymphocyte # 2.07 X10^3/ul (4.0); Lymphocyte % 14.2 % (19-41); Mean Corp Hgb Conc 32.1 g/dL (32-36); Mean Corpuscular Hgb 27.1 pg (27.0-32.0); Mean Corpuscular Volume 84.3 fL (81-99); Mean Platelet Vol. 10.5 fl (6.2-12.0); Monocyte% 12.3 % (0-10); NRBC Flagged by Analyzer 0 % (0-5); Neutrophil # 10.41 X10^3/uL (2.7-7.7); Neutrophil % 71.2 % (47-70); POSITIVE COUNT YES; POSITIVE DIFFERENTIAL YES; Platelet Count 300 K/mm3 (150-450); RBC Distribution Width CV 14.2 % (11.6-14.6); RBC Distribution Width SD 43.5 fl (35.1-43.9); Red Blood Count 5.21 M/mm3 (4.2-5.4); White Blood Count 14.6 K/mm3 (4.4-11.0)
[2019-06-25 04:36] LABS: Differential Indicated SCAN CRITERIA MET
[2019-06-25] MEDS: Nystatin Powder 15gm Bottle 1 APPLIC TOPICAL ×2 (04:36→22:50)
[2019-06-25 04:43] LABS: Anion Gap 12 (5-15); BUN 22 mg/dL (7-18); BUN/Creat Ratio 16.3 RATIO (10-20); Calcium,Total 9.4 mg/dL (8.5-10.1); Chloride 98 mmol/L (98-107); Creatinine, Serum 1.35 mg/dL (0.55-1.02); EST Glomerular Filtration Rate 42 mL/min (>60); Est Glom Filt Rate - Afr Amer 51 mL/min (>60); Estimated Creatinine Clearance 39.41 ml/min; Glucose 237 mg/dL (74-106); Potassium 3.7 mmol/L (3.5-5.1); Sodium Level 139 mmol/L (136-145)
--- NOTE | 2019-06-25 06:37 | CPS ---
EKG attempted on pt. in the morning / RN was in to assist with EKG / Pt. was thrashing about and wouldn't stay in the supine position / Wasn't able to obtain quality EKG because of pt.'s agitation and constant movement.
[2019-06-25] MEDS: Insulin Lispro 100 UNIT/ML INSULN.PEN SC ×2 (06:46→22:40)
[2019-06-25] MEDS: Lactated Ringers 1,000 ML 50 ML IV (06:46)
--- NOTE | 2019-06-25 06:46 | PCM.PN.BLA ---
Progress Note Patient was admitted for flash pulmonary edema and noted to have prolonged QT interval. Nurse report patient thrashing in bed and holding her abdomen. X-ray of her abdomen was remarkable for ileus versus small bowel obstruction. Of note patient is receiving diuretics with Lasix. Will discontinue Lasix for now. We will keep patient n.p.o. We will give LR hydration 50 mL's per hour for now. STROKE Vital Signs/Narrative: Vital Signs Temp Pulse Resp BP Pulse Ox 06/25/19 02:58 97 F L 99 19 H 105/59 L 95
[2019-06-25 06:55] LABS: Bedside Glucose 244 mg/dL (70-110)
[2019-06-25 07:48] VITALS: BP 149/70; PULSE 97; RESP 20; TEMP 36.9; O2SAT 94
--- NOTE | 2019-06-25 09:19 | PN.CARD_ITS ---
<Giovanni Avila H - Last Filed: 06/25/19 11:01> Subjectve: Patient seen and evaluated. She is resting comfortably. She does not engage in conversation. She does not appear in acute distress. Objective: Vital Signs Temp Pulse Resp BP Pulse Ox 98.5 F 97 20 H 149/70 H 94 06/25/19 07:48 06/25/19 07:48 06/25/19 07:48 06/25/19 07:48 06/25/19 07:48 Oxygen Flow Rate (L/min) 3 Oxygen Delivery Method Room Air Weight: 260 lb 6.4 oz Body Mass Index (BMI) 46.5 Finger Stick Blood Glucose 480 Intake and Output for Last 24 Hours 06/23/19 06/24/19 06/25/19 23:59 23:59 23:59 Intake Total 560 / 620 300 / 300 60 / 60 Output Total 2650 / 3150 1780 / 1780 Balance -2090 / -2530 -1480 / -1480 60 / 60 General: Healthy Appearing, Cooperative, No Acute Distress HEENT: Atraumatic Neck: No JVD Lungs: Diminished Con Bases Cardiovascular: Regular Rhythm, Normal S1, Normal S2, No Murmurs, No Rubs, No Gallops Vascular: No Carotid Bruits Extremities: No Cyanosis, No Clubbing, No edema, Normal Capillary Refill Neurological: No Focal Motor or Sensory Deficit 06/24/19 05:15: Magnesium 1.9 06/24/19 09:15: Urine Color Yellow, Urine Clarity Sl. Cloudy, Urine pH 7.0, Ur Specific [place] 1.005, Urine Protein 30 H, Urine Glucose (UA) Normal, Urine Ketones 15 H, Urine Occult Blood 25 H, Urine Nitrite Negative, Urine Bilirubin Negative, Urine Urobilinogen Normal, Ur Leukocyte Esterase Negative, Urine RBC 0-5 SEEN, Urine WBC 0-5 SEEN 06/24/19 09:43: pH 7.54 H, Bicarbonate Actual 29.7 H, POC Total CO2 31, Base Excess 7 H, O2 Saturation 97, ABG pCO2 34.4 L, ABG pO2 76 06/25/19 04:20: WBC 14.6 H, RBC 5.21, Hgb 14.1, Hct 43.9, MCV 84.3 D, MCH 27.1, MCHC 32.1, Plt Count 300, MPV 10.5, Immature Gran % (Auto) 0.400, Neut % (Auto) 71.2 H, Lymph % (Auto) 14.2 L, Stephens % (Auto) 12.3 H, Eos % (Auto) 1.1, Baso % (Auto) 0.8, Absolute Neuts (auto) 10.4 H, Nucleated RBC % 0 06/25/19 04:20: Sodium 139, Potassium 3.7, Chloride 98, Carbon Dioxide 29.0, Anion Gap 12, BUN 22 H, Creatinine 1.35 H, Est GFR (MDRD) Af Amer 51 L, Est GFR (MDRD) Non-Af 42 L, BUN/Creatinine Ratio 16.3, Glucose 237 H, Calcium 9.4 Rhythm: EKG: ECHO: 06/23/2019 Interpretation Summary Limited views were obtained. The study was technically difficult. Contrast injection was performed. Severe segmental systolic dysfunction (see wall motion). Estimate ejection fraction is 20%. Left atrium is mildly enlarged. Mild diffuse aortic valve thickening. Mild focal aortic valve calcification. Stress Test: Cardiac Cath: PCI: CT Surgery: Holter monitor: EPS: PPM: CXR: Chest CT Scan: Medical Necessity - Tobacco Use Smoking Status: Never smoker Assessment/Plan 1. Prolonged QT interval An EKG was not able to be obtained today due to patient's restlessness. Her EKG yesterday showed a QTC of 607 with continual T wave abnormality. At this time, we will continue to hold QT prolonging medications. 2. Takutsobo cardiomyopathy She underwent a limited echocardiogram on 06/23/2019 that showed reduced ejection fraction of 20%. She is currently on room air. She is resting comfortably. She has been unable to take her p.o. medications. She will continue with Coreg 12.5 mg p.o. twice daily and losartan 50 mg p.o. twice daily. Her Lasix was held last night due to abdominal discomfort. She is currently receiving gentle rehydration. Given her reduced ejection fraction in conjunction with previous flash pulmonary edema, her fluid volume status need to be monitored closely. Patient is currently n.p.o. At this time we will not switch to IV beta jenny. Hopefully, her mental status and PO status changes to allow for oral medications. As noted previously her troponin has remained relatively flat and her heart catheterization February 2019 showed angiographically normal coronary arteries. 3. Hypertension This continues to fluctuate. However, it appears generally well controlled. She will continue current medical therapy. 4. Confusion Her ABG yesterday did not reveal any significant CO2 retention. Ultimately, this will be deferred to primary team. 5. Abdominal pain It appears that general surgery has been consulted to assist. She underwent a KUB yesterday that showed possible localized ileus in the left upper quadrant versus early small bowel obstruction. Clinical correlation was recommended. Patient's case was discussed further with Dr. Ellison, who will also further evaluate patient. Thank you for allowing us to participate in the patients plan of care, if you have any questions please do not hesitate to call. This note was generated using a voice recognition system and there may be incorrect words, spelling or punctuation that were not noted when reviewing the office note prior to saving. <Son Ellison - Last Filed: 06/25/19 19:28> Objective: Vital Signs Temp Pulse Resp BP Pulse Ox 98.5 F 108 H 18 155/78 H 95 06/25/19 13:57 06/25/19 13:57 06/25/19 13:57 06/25/19 13:57 06/25/19 13:57 Oxygen Flow Rate (L/min) 3 Oxygen Delivery Method Room Air Weight: 260 lb 6.4 oz Body Mass Index (BMI) 46.5 Finger Stick Blood Glucose 480 Intake and Output for Last 24 Hours 06/23/19 06/24/19 06/25/19 23:59 23:59 23:59 Intake Total 560 / 620 300 / 300 60 / 60 Output Total 2650 / 3150 1780 / 1780 Balance -2090 / -2530 -1480 / -1480 60 / 60 06/25/19 04:20: WBC 14.6 H, RBC 5.21, Hgb 14.1, Hct 43.9, MCV 84.3 D, MCH 27.1, MCHC 32.1, Plt Count 300, MPV 10.5, Immature Gran % (Auto) 0.400, Neut % (Auto) 71.2 H, Lymph % (Auto) 14.2 L, [place] % (Auto) 12.3 H, Eos % (Auto) 1.1, Baso % (Auto) 0.8, Absolute Neuts (auto) 10.4 H, Nucleated RBC % 0 06/25/19 04:20: Sodium 139, Potassium 3.7, Chloride 98, Carbon Dioxide 29.0, Anion Gap 12, BUN 22 H, Creatinine 1.35 H, Est GFR (MDRD) Af Amer 51 L, Est GFR (MDRD) Non-Af 42 L, BUN/Creatinine Ratio 16.3, Glucose 237 H, Calcium 9.4 Rhythm: EKG: ECHO: Stress Test: Cardiac Cath: PCI: CT Surgery: Holter monitor: EPS: PPM: CXR: Chest CT Scan: Assessment/Plan Addendum: Date: 06-25-19 The patient has been evaluated. The patient has had issues with confusion and abdominal discomfort. She has declined oral medical therapy. She has been undergoing evaluation by general surgery. The patient remains with diminished inspiratory effort. Her cardiovascular examination is demonstrated a regular rhythm normal S1-S2. Her cardiac rhythm has remained sinus rhythm. She has a history of a stress-induced cardiomyopathy. She is undergone diagnostic cardiac catheterization in 2015 with no angiographically significant CAD. She underwent diagnostic cardiac catheterization in February 2019 again with no angiographically significant appearing CAD. At that time her LV systolic function was preserved. Her follow-up transthoracic echocardiogram in March of this year demonstrated preserved LV systolic function. Now her left ventricle demonstrates regional wall motion abnormalities compatible with a recurrent stress-induced cardiomyopathy. At the present time from a cardiovascular standpoint she will need to continue medical therapy based upon her aforementioned findings and concerns of a recurrent stress-induced cardiomyopathy. This will include agents such as beta blockers and afterload reducing agents. She will also need volume control with diuretic therapy. She has declined oral medications today. Hopefully she will initiate oral medical therapy to assist with her cardiovascular status. Again holding medications that prolong her QT interval appear to be prudent at this time. The patient's case has been discussed and reviewed with Giovanni Avila CNP. This note was generated using a voice recognition system and there may be incorrect words, spelling or punctuation that were not noted when reviewing the office note prior to saving.
[2019-06-25] MEDS: Lidocaine 5% Patch 1 PATCH TOPICAL (10:42)
[2019-06-25] MEDS: Enoxaparin 40 MG/0.4 ML Syringe SC (10:42)
--- NOTE | 2019-06-25 11:15 | PCM.PN.HOSP ---
Patient Problems: Active and Suspected Problems (Last Reviewed 06/20/19 @ 23:26 by Jacques Santos MD) Flash pulmonary edema (Acute) Subjective: Patient seen and examined. She required a sitter overnight as she was combative. She was also complaining of abdominal pain, so a KUB was done which showed localised ileus vs early small bowel obstruction. General surgery was therefore consulted. She was calm this morning, but not very communicative. She wouldnt answer questions when asked, and just mumbled incoherently. Unable to do review of systems. Vitals/I&O's: Vital Signs Temp Pulse Resp BP Pulse Ox 98.5 F 97 20 H 149/70 H 94 06/25/19 07:48 06/25/19 07:48 06/25/19 07:48 06/25/19 07:48 06/25/19 07:48 Oxygen Flow Rate (L/min) 3 Oxygen Delivery Method Room Air Weight: 260 lb 6.4 oz Body Mass Index (BMI) 46.5 Finger Stick Blood Glucose 480 Intake and Output for Last 24 Hours 06/23/19 06/24/19 06/25/19 23:59 23:59 23:59 Intake Total 560 / 620 300 / 300 60 / 60 Output Total 2650 / 3150 1780 / 1780 Balance -2090 / -2530 -1480 / -1480 60 / 60 General: Alert, lethargic HEENT: Atraumatic, PERRLA, EOMI, Normocephalic Neck: Supple, No JVD, Negative Carotid Bruits Lungs: mild wheezing in all lung davalos, with few crackles. on 2L of oxygen Cardiovascular: Regular rate, No murmurs Abdomen: Bowel Sounds Present, Soft, Non Tender Extremities: No edema, Capillary Refill Less than 3 Seconds Skin: No rashes, No breakdown Musculoskeletal: No Tenderness to Palpation of Joints or Extremities Neurological: Cranial nerves II-XII grossly intact Psych/Mental Status: lethargic Laboratory Results 06/24/19 05:15: Magnesium 1.9 06/24/19 09:43: Blood Gas Notified Whom OTHER 06/24/19 12:11: POC Glucose 177 H 06/24/19 16:49: POC Glucose 219 H 06/24/19 20:51: POC Glucose 253 H 06/25/19 04:20: WBC 14.6 H, RBC 5.21, Hgb 14.1, Hct 43.9, MCV 84.3 D, MCH 27.1, MCHC 32.1, RDW Std Deviation 43.5, RDW Coeff of Be 14.2, Plt Count 300, MPV 10.5, Immature Gran % (Auto) 0.400, Neut % (Auto) 71.2 H, Lymph % (Auto) 14.2 L, [place] % (Auto) 12.3 H, Eos % (Auto) 1.1, Baso % (Auto) 0.8, Absolute Neuts (auto) 10.4 H, Absolute Lymphs (auto) 2.07, Nucleated RBC % 0, Diff Path Review December06/25/19 04:20: Sodium 139, Potassium 3.7, Chloride 98, Carbon Dioxide 29.0, Anion Gap 12, BUN 22 H, Creatinine 1.35 H, Estim Creat Clear Calc 39.41, Est GFR (MDRD) Af Amer 51 L, Est GFR (MDRD) Non-Af 42 L, BUN/Creatinine Ratio 16.3, Glucose 237 H, Calcium 9.4 06/25/19 06:36: POC Glucose 244 H Diagnostic Data Chest X-Ray 06/22/19 09:34 IMPRESSION: There has been improvement in the CHF. Mild residual changes persist. Blunting of the costophrenic angles bilaterally. Electronically Signed: Tristan De La Garza, at 12:39 EST , Service support , Lumbar Spine X-Ray 06/23/19 09:20 IMPRESSION: Degenerative changes of the spine, as detailed above. Electronically Signed: Tristan De La Garza, at 13:25 EST , Service support , KUB X-Ray 06/25/19 03:43 IMPRESSION: Possible localized ileus in the left upper quadrant versus early small bowel obstruction. Clinical correlation recommended. Electronically Signed: Nivia Thorpe MD at 5:57 EST , Service support , Current Medications Hydrocodone Bitart/Acetaminophen ([place] 5mg-325mg) 1 tablet PO Q6H PRN PRN PRN Reason: PAIN -05/28 Last Admin: 06/24/19 23:36 Dose: 1 tablet Documented by: Albuterol/Ipratropium (Duoneb) 3 ml INHALATION Q6HWA.RT [facility] Last Admin: 06/25/19 07:28 Dose: Not Given Documented by: Allopurinol (Zyloprim) 100 mg PO DAILY@2200 [facility] Last Admin: 06/24/19 21:04 Dose: Not Given Documented by: Atorvastatin Calcium (Lipitor) 20 mg PO QHS [facility] Last Admin: 06/24/19 21:04 Dose: Not Given Documented by: Carvedilol (Coreg) 12.5 mg PO BID [facility] Last Admin: 06/25/19 10:51 Dose: Not Given Documented by: Dextrose (D50w Syringe) 0 gm IV X1 PRN; Protocol PRN Reason: Hypoglycemia Enoxaparin Sodium (Lovenox) 40 mg SC DAILY@1000 [facility] Last Admin: 06/25/19 10:42 Dose: 40 mg Documented by: Gabapentin (Neurontin) 200 mg PO TIDCM [facility] Last Admin: 06/25/19 08:54 Dose: Not Given Documented by: Glucagon () 1 mg IM .X1 PRN PRN Reason: Hypoglycemia Guaifenesin (Mucinex) 1,200 mg PO BID [facility] Last Admin: 06/25/19 10:51 Dose: Not Given Documented by: Guaifenesin/Codeine Phosphate (Robitussin Ac) 10 ml PO Q6H PRN PRN PRN Reason: COUGH Hydroxychloroquine Sulfate (Plaquenil) 200 mg PO BIDCM [facility] Last Admin: 06/25/19 08:54 Dose: Not Given Documented by: Lactated Ringer's () 1,000 mls @ 50 mls/hr IV .Q20H [facility] Last Admin: 06/25/19 06:46 Dose: 50 mls/hr Documented by: Insulin Human Lispro (Humalog Kwikpen ([facility])) 0 unit SC ACHS [facility]; Protocol Last Admin: 06/25/19 06:46 Dose: 3 units Documented by: Insulin Human Regular (Humulin R U-500 ([facility])) 35 units SC BREAKFAST [facility] Last Admin: 06/25/19 08:10 Dose: Not Given Documented by: Insulin Human Regular (Humulin R U-500 ([facility])) 35 units SC DINNER [facility] Last Admin: 06/24/19 16:52 Dose: Not Given Documented by: Levothyroxine Sodium (Synthroid) 75 mcg PO DAILY@0600 [facility] Last Admin: 06/25/19 05:38 Dose: Not Given Documented by: Lidocaine (Lidoderm Patch) 1 patch TOPICAL DAILY [facility]; Protocol Last Admin: 06/25/19 10:42 Dose: 1 patch Documented by: Losartan Potassium (Cozaar) 50 mg PO BID [facility] Last Admin: 06/25/19 10:51 Dose: Not Given Documented by: Montelukast Sodium (Singulair) 10 mg PO DAILY [facility] Last Admin: 06/25/19 10:52 Dose: Not Given Documented by: Morphine Sulfate () 2 mg IV Q4H PRN PRN PRN Reason: Pain Score 6-10/10 Last Admin: 06/25/19 04:27 Dose: 2 mg Documented by: Nutritional Formula (Lactose Free) (Glucerna Shake) 60 ml PO 4X/DAY [facility] Last Admin: 06/25/19 10:51 Dose: Not Given Documented by: Nystatin (Mycostatin Powder) 1 applic TOPICAL BID PRN PRN; Protocol PRN Reason: rash Last Admin: 06/25/19 04:36 Dose: 1 applicatio Documented by: Potassium Chloride (K-Dur) 40 meq PO BIDCM [facility] Last Admin: 06/25/19 08:54 Dose: Not Given Documented by: Pramipexole Dihydrochloride (Mirapex) 0.5 mg PO QHS [facility] Last Admin: 06/24/19 20:56 Dose: 0.5 mg Documented by: Sodium Chloride () 10 - 40 ml IV UD PRN PRN Reason: SALINE FLUSH Last Admin: 06/25/19 04:27 Dose: 10 ml Documented by: STROKE Vital Signs/Narrative: Vital Signs Temp Pulse Resp BP Pulse Ox 06/25/19 07:48 98.5 F 97 20 H 149/70 H 94 Medical Necessity - Tobacco Use Smoking Status: Never smoker Assessment/Plan All Active Problems (Last Reviewed 06/20/19 @ 23:26 by Jacques Santos MD) History of type 1 diabetes mellitus (Acute) Acute respiratory failure with hypoxia (Acute) Flash pulmonary edema (Acute) NSTEMI (non-ST elevated myocardial infarction) (Resolved) Hypokalemia (Acute) Congestive heart failure (Acute) 1. Acute on chronic systolic heart failure probably due to Takotsubo cardiomyopathy shortness of breath has improved; was originally diagnosed as acute on chronic HFpEF, but repeat echo showed EF as below she still however remains on 2L of oxygen. 2D echo(; severe segmental systolic dysfunction, with EF of 20%, and mild enlarged left atrium. Previous EF was 55% (from 04/06), so this shows a significant decrease in her EF lasix decreased to IV lasix 40mg daily by cardiology. Patient refusing oral meds per cardiology, decrease in EF is likely from another episode of Takotsubo;s cardiomyopathy; conservative management advocated for now, per cardiology. 2. Acute metabolic encephalopathy likely due to her being off her psych meds due to QT prolongation UA showed no evidence of UTI patient required a sitter overnight; EKG couldnt be repeated this morning as patient was not cooperative QTc yesterday was 607; will try to repeat later today to assess QTc 3. ? Ileus: complained of abdominal pain yesterday, so KUB was done; showed possible localised ileus in left upper quadrant vs early small bowel obstruction. patient didnt answer when asked if she is passing gas or having bowel movements; however, abdomen was soft during examination, with normal bowel sounds. General surgery consulted. 4. Prolonged QT: all QT prolonging meds on hold- zofran, lyrica, haldol, sertraline. cardiology on board will continue monitoring. keep potassium >4 and magnesium >2 to repeat EKG later today 5. Respiratory alkalosis: ABG done today o/a of confusion showed pH of 7.54, with bicarb of 29.7, and pCO2 of 34.4. I think this is likely due to patient hyperventilating due to agitation. Bicarb is 32 from BMP. persistent nausea and vomiting is also likely contributing to alkalosis. nausea has improved though. WIll order compazine prn 6. Elevated troponins: cardiology on board; advocate conservative management for now. Per cardiology, they are concerneda bout stress induced cadiolmyopathy. She does have a history of takotsubo cardiomyopathy.l 2D echo: as under 1. 7. Hypertension had hypertensive urgency on admission BP now in 140s systolic. BP ranges from 180s systolic to 80s systolic. on carvedilol and losartan 8. Type 2 diabetes mellitus: on U-500 insulin 35IU qpm. This was held as she was refusing to eat. ISS. [place]jos ACHS 9. History of paroxysmal afib: on carvedilol 8. Hyperlipidemia: on statin 9. History of Takotsubo's cardiomyopathy and CAD: on coreg, losartan and statin 10. History of depression and fibromyalgia: zoloft held o/a of QT prolongation. Lyrica also held. 11. chronic nausea: says only haldol and compazine work. Unable to give haldol o/a of QT prolongation will give compazine prn DVT prophylaxis: lovenox Code Visit Inpatient E&M: 69091 Subs Hosp L2
[2019-06-25 11:19] LABS: Pathologist Review Reviewed
--- NOTE | 2019-06-25 12:00 | PCM.CONS.GEN ---
Problem List (1) Abdominal pain Status: Acute Reason for Consult Date of Consultation: 06/25/19 Reason for Consultation: Abdominal pain History of Present Illness: The patient is a 63 year old F who presented to the ED with shortness of breath and cough. Patient is confused and does not answer any questions. Patient's history per nursing staff and through records. The patient appeared to have her shortness of breath and cough x 2 weeks. She was hospitalized at [place] for her symptoms over night. She was also treated for a UTI with antibiotics. Patient was noted to have more agitation within the last 48 hours. Patient had started to hold her abdomen and moan per nursing staff overnight last night. A KUB was ordered which demonstrated Possible localized ileus in the left upper quadrant versus early small bowel obstruction. Patient has had previous appendectomy and gallbladder removal per records. Per nursing staff, she has not had any nausea or vomiting. She is currently NPO. She has history of gastroparesis. Past Medical History Past Medical History (Chronic Problems): Chronic Problems (Last Reviewed 06/25/19 @ 13:23 by Shruthi Santana PA-C) Fibromyalgia (Chronic) Type 2 diabetes mellitus (Chronic) 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) Diabetic gastroparesis (Chronic) GERD (gastroesophageal reflux disease) (Chronic) Seizure disorder (Chronic) Paroxysmal atrial fibrillation (Chronic) Chronic pain syndrome (Chronic) Takotsubo cardiomyopathy (Chronic) Iron deficiency anemia (Chronic) Depression (Chronic) Morbid obesity with BMI of 40.0-44.9, adult (Chronic) HLD (hyperlipidemia) (Chronic) Benign essential HTN (Chronic) Medical History: Medical History (Last Reviewed 06/25/19 @ 13:23 by Shruthi Santana PA-C) Fibromyalgia (Chronic) M79.7 Congestive heart failure (Acute) I50.9 Type 2 diabetes mellitus (Chronic) E11.9 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) I25.2 GERD (gastroesophageal reflux disease) (Chronic) K21.9 Seizure disorder (Chronic) G40.909 Paroxysmal atrial fibrillation (Chronic) I48.0 Chronic pain syndrome (Chronic) G89.4 Takotsubo cardiomyopathy (Chronic) I51.81 Iron deficiency anemia (Chronic) D50.9 Depression (Chronic) F32.9 Morbid obesity with BMI of 40.0-44.9, adult (Chronic) E66.01, Z68.41 HLD (hyperlipidemia) (Chronic) E78.5 Benign essential HTN (Chronic) I10 Diabetic gastroparesis E11.43, K31.84 Diverticulitis K57.92 Fibromyalgia M79.7 QIAN (obstructive sleep apnea) G47.33 Restless leg syndrome G25.81 History of CVA (cerebrovascular accident) (Inactive) Z86.73 Allergies ciprofloxacin [From Cipro] Allergy (Verified 06/20/19 20:26) Shortness of breath ciprofloxacin HCl [From Cipro] Allergy (Verified 06/20/19 20:26) Shortness of breath cyclobenzaprine [From Flexeril] Allergy (Verified 06/20/19 20:26) Rash cyclobenzaprine HCl [From Flexeril] Allergy (Verified 06/20/19 20:26) Rash ketorolac tromethamine [From Toradol] Allergy (Verified 06/20/19 20:26) Chest tightness sulfamethoxazole [From Bactrim] Allergy (Verified 06/20/19 20:26) Itching trimethoprim [From Bactrim] Allergy (Verified 06/20/19 20:26) Itching metformin Adverse Reaction (Verified 06/20/19 20:26) Other headache valacyclovir HCl [From Valtrex] Adverse Reaction (Verified 06/20/19 20:26) Other Home Medications: Ambulatory Orders Medication Instructions Recorded Ropinirole HCl [Requip] 1 mg PO QHS 05/07/16 Haloperidol 2 mg PO TID PRN PRN 09/17/18 Levothyroxine Sodium 75 mcg PO DAILY 09/17/18 Simvastatin 40 mg PO QHS 09/17/18 Candesartan Cilexetil [Atacand] 16 mg PO DAILY 11/30/18 Hydrocodone Bitart/Apap 5-325 1 tab PO Q6H PRN PRN 11/30/18 [[place] 5/325] Hydroxychloroquine [Plaquenil] 200 mg PO BIDCM 11/30/18 Montelukast Sodium 10 mg PO DAILY 11/30/18 Pregabalin [Lyrica] 225 mg PO BID 11/30/18 sertraline 50 mg tablet 25 mg PO DAILY tab 01/09/19 Carvedilol [Coreg] 6.25 mg PO BID #0 03/23/19 allopurinol 100 mg tablet 100 mg PO QHS tab 03/30/19 nystatin 100,000 unit/gram topical 1 applic TOPICAL BID PRN 03/30/19 powder Insulin Regular, Human [Humulin R 35 unit SQ BREAKFAST 04/11/19 U-500 Kwikpen] Insulin Regular, Human [Humulin R 35 unit SQ DINNER 04/11/19 U-500 Kwikpen] Cephalexin [Keflex] 500 mg PO 4X/DAY 06/20/19 Codeine Phosphate/Guaifenesin 10 ml PO Q6H PRN 06/20/19 [Virtussin AC Liquid] Surgical History: Surgical History (Last Reviewed 06/25/19 @ 13:23 by Shruthi Santana PA-C) History of cholecystectomy Z90.49 History of knee surgery Z98.890 History of left heart catheterization Onset Date: 03/09/19 Z98.89 Surgical History: appendectomy, cholecystectomy Psychiatric History: Depression RADIOLOGICAL TECHNICIAN History: No pertinent RADIOLOGICAL TECHNICIAN history Smoking Status: Never smoker Alcohol: None Drugs: None - *Family History Paternal Family History: Family History (Last Reviewed 06/25/19 @ 13:24 by Shruthi Santana PA-C) Mother Myocardial infarction Father Congestive heart failure Other Diabetes Heart disease History Items: Heart Disease, - - Bone cancer Maternal Family History: Family History (Last Reviewed 06/25/19 @ 13:24 by Shruthi Santana PA-C) Mother Myocardial infarction Father Congestive heart failure Other Diabetes Heart disease History Items: COPD, Diabetes, Heart Disease, - - Smoker Review of Systems Unable to obtain accurate/complete ROS d/t: Patient confused and not able to answer any questions Patient Problems: Active and Suspected Problems (Last Reviewed 06/25/19 @ 13:23 by Shruthi Santana PA-C) Abdominal pain (Acute) Flash pulmonary edema (Acute) - Physical Exam Vitals/I&O's: Vital Signs Temp Pulse Resp BP Pulse Ox 98.5 F 97 20 H 149/70 H 94 06/25/19 07:48 06/25/19 07:48 06/25/19 07:48 06/25/19 07:48 06/25/19 07:48 Oxygen Flow Rate (L/min) 3 Oxygen Delivery Method Room Air Weight: 260 lb 6.4 oz Body Mass Index (BMI) 46.5 Finger Stick Blood Glucose 480 Intake and Output for Last 24 Hours 06/23/19 06/24/1906/25/19 23:59 23:59 23:59 Intake Total 560 / 620 300 / 300 60 60 Output Total 2650 / 3150 1780 / 1780 Balance -2090 / -2530 -1480 / -1480 General: Confused, Disoriented, Non-Cooperative HEENT: Atraumatic, PERRLA, EOMI, Normocephalic Abdomen: Soft, Non Tender, Obese - morbidly, - - Excoriation lower pelvic region Laboratory Results 06/24/19 05:15: Magnesium 1.9 06/24/19 09:43: Blood Gas Notified Whom OTHER 06/24/19 12:11: POC Glucose 177 H 06/24/19 16:49: POC Glucose 219 H 06/24/19 20:51: POC Glucose 253 H 06/25/19 04:20: WBC 14.6 H, RBC 5.21, Hgb 14.1, Hct 43.9, MCV 84.3 D, MCH 27.1, MCHC 32.1, RDW Std Deviation 43.5, RDW Coeff of Be 14.2, Plt Count 300, MPV 10.5, Immature Gran % (Auto) 0.400, Neut % (Auto) 71.2 H, Lymph % (Auto) 14.2 L, [place] % (Auto) 12.3 H, Eos % (Auto) 1.1, Baso % (Auto) 0.8, Absolute Neuts (auto) 10.4 H, Absolute Lymphs (auto) 2.07, Nucleated RBC % 0, Diff Path Review Reviewed 06/25/19 04:20: Sodium 139, Potassium 3.7, Chloride 98, Carbon Dioxide 29.0, Anion Gap 12, BUN 22 H, Creatinine 1.35 H, Estim Creat Clear Calc 39.41, Est GFR (MDRD) Af Amer 51 L, Est GFR (MDRD) Non-Af 42 L, BUN/Creatinine Ratio 16.3, Glucose 237 H, Calcium 9.4 06/25/19 06:36: POC Glucose 244 H Current Medications Hydrocodone Bitart/Acetaminophen ([place] 5mg-325mg) 1 tablet PO Q6H PRN PRN PRN Reason: PAIN -05/28 Last Admin: 06/24/19 23:36 Dose: 1 tablet Documented by: Albuterol/Ipratropium (Duoneb) 3 ml INHALATION Q6HWA.RT [facility] Last Admin: 06/25/19 07:28 Dose: Not Given Documented by: Allopurinol (Zyloprim) 100 mg PO DAILY@2200 [facility] Last Admin: 06/24/19 21:04 Dose: Not Given Documented by: Atorvastatin Calcium (Lipitor) 20 mg PO QHS [facility] Last Admin: 06/24/19 21:04 Dose: Not Given Documented by: Carvedilol (Coreg) 12.5 mg PO BID [facility] Last Admin: 06/25/19 10:51 Dose: Not Given Documented by: Dextrose (D50w Syringe) 0 gm IV X1 PRN; Protocol PRN Reason: Hypoglycemia Enoxaparin Sodium (Lovenox) 40 mg SC DAILY@1000 [facility] Last Admin: 06/25/19 10:42 Dose: 40 mg Documented by: Gabapentin (Neurontin) 200 mg PO TIDCM [facility] Last Admin: 06/25/19 08:54 Dose: Not Given Documented by: Glucagon () 1 mg IM .X1 PRN PRN Reason: Hypoglycemia Guaifenesin (Mucinex) 1,200 mg PO BID [facility] Last Admin: 06/25/19 10:51 Dose: Not Given Documented by: Guaifenesin/Codeine Phosphate (Robitussin Ac) 10 ml PO Q6H PRN PRN PRN Reason: COUGH Hydroxychloroquine Sulfate ([facility]aquenil) [facility] Last Admin: 06/25/19 08:54 Dose: Not Given Documented by: Lactated Ringer's () 1,000 mls @ 50 mls/hr IV .Q20H [facility] Last Admin: 06/25/19 06:46 Dose: 50 mls/hr Documented by: Insulin Human Lispro (Humalog Kwikpen ([facility])) 0 unit SC ACHS [facility]; Protocol Last Admin: 06/25/19 06:46 Dose: 3 units Documented by: Insulin Human Regular (Humulin R U-500 ([facility])) 35 units SC BREAKFAST [facility] Last Admin: 06/25/19 08:10 Dose: Not Given Documented by: Insulin Human Regular (Humulin R U-500 ([facility])) 35 units SC DINNER [facility] Last Admin: 06/24/19 16:52 Dose: Not Given Documented by: Levothyroxine Sodium (Synthroid) 75 mcg PO DAILY@0600 [facility] Last Admin: 06/25/19 05:38 Dose: Not Given Documented by: Lidocaine (Lidoderm Patch) 1 patch TOPICAL DAILY [facility]; Protocol Last Admin: 06/25/19 10:42 Dose: 1 patch Documented by: Losartan Potassium (Cozaar) 50 mg PO BID [facility] Last Admin: 06/25/19 10:51 Dose: Not Given Documented by: Montelukast Sodium (Singulair) 10 mg PO DAILY [facility] Last Admin: 06/25/19 10:52 Dose: Not Given Documented by: Morphine Sulfate () 2 mg IV Q4H PRN PRN PRN Reason: Pain Score 6-1010 Last Admin: 06/25/19 04:27 Dose: 2 mg Documented by: Nutritional Formula (Lactose Free) (Glucerna Shake) 60 ml PO 4X/DAY [facility] Last Admin: 06/25/19 10:51 Dose: Not Given Documented by: Nystatin (Mycostatin Powder) 1 applic TOPICAL BID PRN PRN; Protocol PRN Reason: rash Last Admin: 06/25/19 04:36 Dose: 1 applicatio Documented by: Potassium Chloride (K-Dur) 40 meq PO BIDCM [facility] Last Admin: 06/25/19 08:54 Dose: Not Given Documented by: Pramipexole Dihydrochloride (Mirapex) 0.5 mg PO QHS [facility] Last Admin: 06/24/19 20:56 Dose: 0.5 mg Documented by: Sodium Chloride () 10 - 40 ml IV UD PRN PRN Reason: SALINE FLUSH Last Admin: 06/25/19 04:27 Dose: 10 ml Documented by: Assessment/Plan All Active Problems (Last Reviewed 06/25/19 @ 13:23 by Shruthi Santana PA-C) History of type 1 diabetes mellitus (Acute) Abdominal pain (Acute) Acute respiratory failure with hypoxia (Acute) Flash pulmonary edema (Acute) NSTEMI (non-ST elevated myocardial infarction) (Resolved) Hypokalemia (Acute) Congestive heart failure (Acute) I have been consulted in conjunction with Dr. Carrington. He has independently evaluated this patient. Impression: Abdominal discomfort. Probable ileus. Diarrhea, rule out infectious etiology Plan: Discussed patient with Dr. Carrington. Will plan to obtain stool cultures. Patient may resume her diet. No indication for NG tube. No surgical intervention recommended at this time. We will continue to monitor this patient. Thank you for allowing us to participate in this patient's care. Code Visit Office Visits / Consults: [id number] IP Consult L3
[2019-06-25 12:51] LABS: Bedside Glucose 248 mg/dL (70-110)
--- NOTE | 2019-06-25 13:45 | EKG12_ITS ---
Test Reason : AM EKG Blood Pressure : / mmHG Vent. Rate : 092 BPM Atrial Rate : 092 BPM P-R Int : 160 ms QRS Dur : 074 ms QT Int : 458 ms P-R-T Axes : 035 -61 -54 degrees QTc Int : 566 ms Normal sinus rhythm Left axis deviation Inferior infarct , age undetermined Marked T wave abnormality, consider anterolateral ischemia Prolonged QT Abnormal ECG Confirmed by ABIMAEL CURRY, CAROLE ([id number]), editor news ADAMS GOODEN ([id number]) on 06/30/2019 3:19:26 PM Referred By: Jacques Santos Confirmed By:CAROLE VARGHESE MD
[2019-06-25 13:57] VITALS: BP 155/78; PULSE 108; RESP 18; TEMP 36.9; O2SAT 95
[2019-06-25 16:10] LABS: Bedside Glucose 275 mg/dL (70-110)
[2019-06-25 19:57] VITALS: BP 142/87; PULSE 116; RESP 18; TEMP 36.5; O2SAT 95
[2019-06-25 22:19] VITALS: O2SAT 96
[2019-06-25 22:51] LABS: Bedside Glucose 290 mg/dL (70-110)
[2019-06-26] VITALS (8 sets, daily range): BP systolic 100–154; BP diastolic 70–94; PULSE 78–110; RESP 16–20; TEMP 36.3–36.8; O2SAT 95–97
[2019-06-26] MEDS: LORazepam 2 MG/ML Syringe 0.5 MG IV ×2 (00:07→01:53)
[2019-06-26] MEDS: Lactated Ringers 1,000 ML 50 ML IV (03:20)
--- NOTE | 2019-06-26 05:55 | EKG12_ITS ---
Test Reason : RHYTHM Blood Pressure : / mmHG Vent. Rate : 097 BPM Atrial Rate : 097 BPM P-R Int : 150 ms QRS Dur : 088 ms QT Int : 478 ms P-R-T Axes : 035 -39 254 degrees QTc Int : 607 ms Sinus rhythm with frequent Premature ventricular complexes in a pattern of bigeminy Left axis deviation Marked T wave abnormality, consider anterolateral ischemia Prolonged QT Abnormal ECG Confirmed by ABIMAEL CURRY, CAROLE ([id number]), video editor ADAMS GOODEN ([id number]) on 06/30/2019 3:20:22 PM Referred By: Jacques Santos Confirmed By:CAROLE VARGHESE MD
[2019-06-26 06:44] LABS: Absolute Neutrophil Count 12.9 X10^3/uL (2.0-7.7); Basophil# 0.13 X10^3/uL; Basophil% 0.8 % (0-1); Eosinophil# 0.08 X10^3/uL; Eosinophils% 0.5 % (0-5); Hematocrit 43.2 % (37-47); Hemoglobin 13.9 g/dL (12.0-15.0); Lymphocyte % 12.1 % (19-41); Mean Corp Hgb Conc 32.2 g/dL (32-36); Mean Corpuscular Hgb 27.2 pg (27.0-32.0); Mean Corpuscular Volume 84.5 fL (81-99); Mean Platelet Vol. 10.6 fl (6.2-12.0); Monocyte# 2.04 X10^3/uL; Monocyte% 11.8 % (0-10); NRBC Flagged by Analyzer 0 % (0-5); Neutrophil # 12.87 X10^3/uL (2.7-7.7); Neutrophil % 74.2 % (47-70); POSITIVE DIFFERENTIAL YES; Platelet Count 333 K/mm3 (150-450); RBC Distribution Width CV 14.2 % (11.6-14.6); RBC Distribution Width SD 43.6 fl (35.1-43.9); Red Blood Count 5.11 M/mm3 (4.2-5.4); White Blood Count 17.3 K/mm3 (4.4-11.0)
[2019-06-26 06:55] LABS: Differential Indicated SCAN CRITERIA MET
[2019-06-26 07:01] LABS: Anion Gap 13 (5-15); BUN 22 mg/dL (7-18); BUN/Creat Ratio 17.7 RATIO (10-20); Calcium,Total 9.2 mg/dL (8.5-10.1); Chloride 101 mmol/L (98-107); Creatinine, Serum 1.24 mg/dL (0.55-1.02); EST Glomerular Filtration Rate 46 mL/min (>60); Est Glom Filt Rate - Afr Amer 56 mL/min (>60); Estimated Creatinine Clearance 42.91 ml/min; Glucose 280 mg/dL (74-106); Potassium 3.3 mmol/L (3.5-5.1); Sodium Level 142 mmol/L (136-145)
[2019-06-26] MEDS: Insulin Lispro 100 UNIT/ML INSULN.PEN SC ×4 (08:04→22:30)
[2019-06-26 08:06] LABS: Bedside Glucose 270 mg/dL (70-110)
--- NOTE | 2019-06-26 08:46 | PCM.PN.CARD ---
<Giovanni Avila H - Last Filed: 06/26/19 08:46> Subjectve: Patient seen and evaluated. She continues to be non-interactive with conversation. She continues to appear restless with intermittent periods of stillness. She continues to require 24-hour Aide surveillance. Objective: Vital Signs Temp Pulse Resp BP Pulse Ox 98.2 F 106 H 20 H 154/86 H 95 06/26/19 06:25 06/26/19 06:25 06/26/19 06:25 06/26/19 06:25 06/26/19 08:05 Oxygen Flow Rate (L/min) 3 Oxygen Delivery Method Room Air Weight: 260 lb 5.855 oz Body Mass Index (BMI) 46.5 Finger Stick Blood Glucose 480 Intake and Output for Last 24 Hours 06/24/19 06/25/19 06/26/19 23:59 23:59 23:59 Intake Total 300 / 300 917.5 / 917.5 142.5 / 142.5 Output Total 1780 / 1780 Balance -1480 / -1480 917.5 / 917.5 142.5 / 142.5 General: Healthy Appearing, No Acute Distress, Non-Cooperative HEENT: Atraumatic Oral: Moist Mucosa Neck: No JVD Lungs: Diminished Con Bases Cardiovascular: Regular Rhythm, Normal S1, Normal S2, No Murmurs, No Rubs, No Gallops Vascular: No Carotid Bruits Extremities: No Cyanosis, No Clubbing, No edema, Normal Capillary Refill Skin: Rash - right shoulder and right lower leg Psych/Mental Status: - - restless 06/26/19 06:09: WBC 17.3 H, RBC 5.11, Hgb 13.9, Hct 43.2, MCV 84.5, MCH 27.2, MCHC 32.2, Plt Count 333, MPV 10.6, Immature Gran % (Auto) 0.600, Neut % (Auto) 74.2 H, Lymph % (Auto) 12.1 L, [place] % (Auto) 11.8 H, Eos % (Auto) 0.5, Baso % (Auto) 0.8, Absolute Neuts (auto) 12.9 H, Nucleated RBC % 0 06/26/19 06:09: Sodium 142, Potassium 3.3 L, Chloride 101, Carbon Dioxide 28.0, Anion Gap 13, BUN 22 H, Creatinine 1.24 H, Est GFR (MDRD) Af Amer 56 L, Est GFR (MDRD) Non-Af 46 L, BUN/Creatinine Ratio 17.7, Glucose 280 H, Calcium 9.2 Rhythm: EKG: ECHO: 06/23/2019 Interpretation Summary Limited views were obtained. The study was technically difficult. Contrast injection was performed. Severe segmental systolic dysfunction (see wall motion). Estimate ejection fraction is 20%. Left atrium is mildly enlarged. Mild diffuse aortic valve thickening. Mild focal aortic valve calcification. Stress Test: Cardiac Cath: PCI: CT Surgery: Holter monitor: EPS: PPM: CXR: Chest CT Scan: Medical Necessity - Tobacco Use Smoking Status: Never smoker Assessment/Plan 1. Prolonged QT interval Her EKG from 06/26/2019 showed sinus tachycardia at a rate of 104 bpm with a QTC of 473 and continual T wave changes. Compared to previous, her T waves continue to improve and her QTC is improved from 522 on 06/25/2019. With her improved QTC, primary team can cautiously resume psych medications. 2. Takutsobo cardiomyopathy She underwent a limited echocardiogram on 06/23/2019 that showed reduced ejection fraction of 20%. She is currently on room air. She is resting comfortably. She has been unable to take her p.o. medications. She will continue with Coreg 12.5 mg p.o. twice daily and losartan 50 mg p.o. twice daily. Her Lasix was held last night due to abdominal discomfort. She is currently receiving gentle rehydration. Given her reduced ejection fraction in conjunction with previous flash pulmonary edema, her fluid volume status need to be monitored closely. Hopefully, her mental status and PO status improve to allow for oral medications. As noted previously her troponin has remained relatively flat and her heart catheterization February 2019 showed angiographically normal coronary arteries. 3. Hypertension This continues to fluctuate. Hopefully, once mental status improves she can resume oral medications. A renal ultrasound was recommended to evaluate for renal artery stenosis given her multiple episodes of hypertensive urgency. Due to her restlessness and mental status this has been very challenging. Perhaps, this will be best achieved on an outpatient basis once clinically stable. 4. Confusion Ultimately, this will be deferred to primary team. Hopefully, by resuming her psych medications her mental status improves. 5. Abdominal pain She underwent a KUB on 06/25/2019 that showed possible localized ileus in the left upper quadrant versus early small bowel obstruction. Clinical correlation was recommended. General surgery has been consulted to assist. No surgical intervention was recommended. She is currently pending stool sample. Her WBC is increased increased from previous. She appears comfortable on exam at this time. Patient's case was discussed further with Dr. Ellison, who will also further evaluate patient. Thank you for allowing us to participate in the patients plan of care, if you have any questions please do not hesitate to call. This note was generated using a voice recognition system and there may be incorrect words, spelling or punctuation that were not noted when reviewing the office note prior to saving. <Son Ellison - Last Filed: 06/26/19 10:18> Objective: Vital Signs Temp Pulse Resp BP Pulse Ox 98.2 F 106 H 20 H 154/86 H 95 06/26/19 06:25 06/26/19 06:25 06/26/19 06:25 06/26/19 06:25 06/26/19 08:05 Oxygen Flow Rate (L/min) 3 Oxygen Delivery Method Room Air Weight: 260 lb 5.855 oz Body Mass Index (BMI) 46.5 Finger Stick Blood Glucose 480 Intake and Output for Last 24 Hours 06/24/19 06/25/19 06/26/19 23:59 23:59 23:59 Intake Total 300 / 300 917.5 / 917.5 142.5 / 142.5 Output Total 1780 / 1780 Balance -1480 / -1480 917.5 / 917.5 142.5 / 142.5 06/26/19 06:09: WBC 17.3 H, RBC 5.11, Hgb 13.9, Hct 43.2, MCV 84.5, MCH 27.2, MCHC 32.2, Plt Count 333, MPV 10.6, Immature Gran % (Auto) 0.600, Neut % (Auto) 74.2 H, Lymph % (Auto) 12.1 L, [place] % (Auto) 11.8 H, Eos % (Auto) 0.5, Baso % (Auto) 0.8, Absolute Neuts (auto) 12.9 H, Nucleated RBC % 0 06/26/19 06:09: Sodium 142, Potassium 3.3 L, Chloride 101, Carbon Dioxide 28.0, Anion Gap 13, BUN 22 H, Creatinine 1.24 H, Est GFR (MDRD) Af Amer 56 L, Est GFR (MDRD) Non-Af 46 L, BUN/Creatinine Ratio 17.7, Glucose 280 H, Calcium 9.2 Rhythm: EKG: ECHO: Stress Test: Cardiac Cath: PCI: CT Surgery: Holter monitor: EPS: PPM: CXR: Chest CT Scan: Assessment/Plan Addendum: Date: 06-26-19 The patient has been independently evaluated. The patient remains uncooperative. She apparently had multiple attempts at IV access yesterday evening and throughout the night that she removed. Thus she has not received any IV medications. At the same time she has had no oral intake. She remains on her examination without any obvious rales or rhonchi. Her cardiovascular exam remains in a regular rhythm with a normal S1-S2. Her cardiac commissioner of officials remains sinus rhythm. Her electric cardiogram from this day demonstrates sinus rhythm. Her QT interval has decreased. Her T wave alterations appear to be resolving towards baseline. She has a history of a stress-induced cardiomyopathy. She is undergone diagnostic cardiac catheterization in 2015 with no angiographically significant CAD. She underwent diagnostic cardiac catheterization in February 2019 again with no angiographically significant appearing CAD. At that time her LV systolic function was preserved. Her follow-up transthoracic echocardiogram in March of this year demonstrated preserved LV systolic function. Now her left ventricle demonstrates regional wall motion abnormalities compatible with a recurrent stress-induced cardiomyopathy. At the present time from a cardiovascular standpoint she will need to continue medical therapy based upon her aforementioned findings and concerns of a recurrent stress-induced cardiomyopathy. This will include agents such as beta blockers and afterload reducing agents. She will also need volume control with diuretic therapy. Also there has been concerns, with respect to her mental status, as to potential withdrawal from her various medications. This was discussed with Dr. Subramanian the tentative plan from her standpoint, now that her electrocardiogram has improved, he is to reintroduce 1 of her medications and follow her mental status and follow her cardiac rhythm and elective cardiographic changes. Hopefully if her mental status improves she will be able to cooperate, take oral medications, which hopefully will benefit her cardiovascular status. The patient's case has been discussed and reviewed with Giovanni Avila CNP, and Dr. Subramanian. This note was generated using a voice recognition system and there may be incorrect words, spelling or punctuation that were not noted when reviewing the office note prior to saving.
[2019-06-26] MEDS: Carvedilol 12.5 MG Tablet PO ×2 (09:44→23:10)
[2019-06-26] MEDS: Losartan Potassium 50 MG Tablet PO ×2 (09:44→23:10)
[2019-06-26] MEDS: Lidocaine 5% Patch 1 PATCH TOPICAL (09:50)
[2019-06-26] MEDS: Enoxaparin 40 MG/0.4 ML Syringe SC (09:50)
[2019-06-26] MEDS: Gabapentin 100 MG Capsule 200 MG PO ×3 (09:59→16:20)
[2019-06-26] MEDS: Hydroxychloroquine 200 MG Tablet PO ×2 (09:59→16:20)
[2019-06-26] MEDS: Morphine 2 MG/ML Syringe IV (10:08)
--- NOTE | 2019-06-26 10:09 | PN.SURG_ITS ---
Patient Problems: Active and Suspected Problems (Last Reviewed 06/25/19 @ 13:23 by Shruthi Santana PA-C) Abdominal pain (Acute) Flash pulmonary edema (Acute) Subjective: Patient is still extremely confused unable to communicate with anyone. Objective: Abdomen is soft no rebound guarding or peritoneal signs - Physical Exam Vitals/I&O's: Vital Signs Temp Pulse Resp BP Pulse Ox 98.2 F 106 H 20 H 154/86 H 95 06/26/19 06:25 06/26/19 06:25 06/26/19 06:25 06/26/19 06:25 06/26/19 08:05 Oxygen Flow Rate (L/min) 3 Oxygen Delivery Method Room Air Weight: 260 lb 5.855 oz Body Mass Index (BMI) 46.5 Finger Stick Blood Glucose 480 Intake and Output for Last 24 Hours 06/24/19 06/25/19 06/26/19 23:59 23:59 23:59 Intake Total 300 / 300 917.5 / 917.5 142.5 / 142.5 Output Total 1780 / 1780 Balance -1480 / -1480 917.5 / 917.5 142.5 / 142.5 Laboratory Results 06/25/19 04:20: Diff Path Review Reviewed 06/25/19 12:46: POC Glucose 248 H 06/25/19 16:01: POC Glucose 275 H 06/25/19 22:39: POC Glucose 290 H 06/26/19 06:09: WBC 17.3 H, RBC 5.11, Hgb 13.9, Hct 43.2, MCV 84.5, MCH 27.2, MCHC 32.2, RDW Std Deviation 43.6, RDW Coeff of Be 14.2, Plt Count 333, MPV 10.6, Immature Gran % (Auto) 0.600, Neut % (Auto) 74.2 H, Lymph % (Auto) 12.1 L, [place] % (Auto) 11.8 H, Eos % (Auto) 0.5, Baso % (Auto) 0.8, Absolute Neuts (auto) 12.9 H, Absolute Lymphs (auto) 2.10, Nucleated RBC % 0, Diff Path Review May 06/26/19 06:09: Sodium 142, Potassium 3.3 L, Chloride 101, Carbon Dioxide 28.0, Anion Gap 13, BUN 22 H, Creatinine 1.24 H, Estim Creat Clear Calc 42.91, Est GFR (MDRD) Af Amer 56 L, Est GFR (MDRD) Non-Af 46 L, BUN/Creatinine Ratio 17.7, Glucose 280 H, Calcium 9.2 06/26/19 08:00: POC Glucose 270 H Current Medications Hydrocodone Bitart/Acetaminophen ([place] 5mg-325mg) 1 tablet PO Q6H PRN PRN PRN Reason: PAIN -05/28 Last Admin: 06/24/19 23:36 Dose: 1 tablet Documented by: Albuterol/Ipratropium (Duoneb) 3 ml INHALATION Q6HWA.RT [facility] Last Admin: 06/26/19 07:15 Dose: Not Given Documented by: Allopurinol (Zyloprim) 100 mg PO DAILY@2200 [facility] Last Admin: 06/25/19 22:21 Dose: Not Given Documented by: Atorvastatin Calcium (Lipitor) 20 mg PO QHS [facility] Last Admin: 06/25/19 22:19 Dose: Not Given Documented by: Carvedilol (Coreg) 12.5 mg PO BID [facility] Last Admin: 06/26/19 09:44 Dose: 12.5 mg Documented by: Dextrose (D50w Syringe) 0 gm IV X1 PRN; Protocol PRN Reason: Hypoglycemia Enoxaparin Sodium (Lovenox) 40 mg SC DAILY@1000 [facility] Last Admin: 06/26/19 09:50 Dose: 40 mg Documented by: Gabapentin (Neurontin) 200 mg PO TIDCM [facility] Last Admin: 06/26/19 09:59 Dose: 200 mg Documented by: Glucagon () 1 mg IM .X1 PRN PRN Reason: Hypoglycemia Guaifenesin (Mucinex) 1,200 mg PO BID [facility] Last Admin: 06/26/19 10:05 Dose: Not Given Documented by: Guaifenesin/Codeine Phosphate (Robitussin Ac) 10 ml PO Q6H PRN PRN PRN Reason: COUGH [facility]xychloroquine [facility]) [facility] Last Admin: 06/26/19 09:59 Dose: 200 mg Documented by: Lactated Ringer's () 1,000 mls @ 50 mls/hr IV .Q20H [facility] Last Admin: 06/26/19 03:20 Dose: 50 mls/hr Documented by: Insulin Human Lispro (Humalog Kwikpen ([facility])) 0 unit SC ACHS [facility]; Protocol Last Admin: 06/26/19 08:04 Dose: 4 units Documented by: Insulin Human Regular (Humulin R U-500 ([facility])) 35 units SC BREAKFAST [facility] Last Admin: 06/26/19 08:04 Dose: Not Given Documented by: Insulin Human Regular (Humulin R U-500 ([facility])) 35 units SC DINNER [facility] Last Admin: 06/25/19 17:00 Dose: Not Given Documented by: Levothyroxine Sodium (Synthroid) 75 mcg PO DAILY@0600 [facility] Last Admin: 06/26/19 06:29 Dose: Not Given Documented by: Lidocaine (Lidoderm Patch) 1 patch TOPICAL DAILY [facility]; Protocol Last Admin: 06/26/19 09:50 Dose: 1 patch Documented by: Losartan Potassium (Cozaar) 50 mg PO BID [facility] Last Admin: 06/26/19 09:44 Dose: 50 mg Documented by: Montelukast Sodium (Singulair) 10 mg PO DAILY [facility] Last Admin: 06/26/19 10:05 Dose: Not Given Documented by: Morphine Sulfate () 2 mg IV Q4H PRN PRN PRN Reason: Pain Score 6-10/10 Last Admin: 06/26/19 10:08 Dose: 2 mg Documented by: Nutritional Formula (Lactose Free) (Glucerna Shake) 60 ml PO 4X/DAY [facility] Last Admin: 06/26/19 10:05 Dose: Not Given Documented by: Nystatin (Mycostatin Powder) 1 applic TOPICAL BID PRN PRN; Protocol PRN Reason: rash Last Admin: 06/25/19 22:50 Dose: 1 applicatio Documented by: Potassium Chloride (K-Dur) 40 meq PO BIDCM [facility] Last Admin: 06/26/19 09:40 Dose: 40 meq Documented by: Pramipexole Dihydrochloride (Mirapex) 0.5 mg PO QHS [facility] Last Admin: 06/25/19 22:19 Dose: Not Given Documented by: Sodium Chloride () 10 - 40 ml IV UD PRN PRN Reason: SALINE FLUSH Last Admin: 06/25/19 22:15 Dose: 10 ml Documented by: Medical Necessity - Tobacco Use Smoking Status: Never smoker Assessment/Plan All Active Problems (Last Reviewed 06/25/19 @ 13:23 by Shruthi Santana PA-C) History of type 1 diabetes mellitus (Acute) Abdominal pain (Acute) Acute respiratory failure with hypoxia (Acute) Flash pulmonary edema (Acute) NSTEMI (non-ST elevated myocardial infarction) (Resolved) Hypokalemia (Acute) Congestive heart failure (Acute) Not appear to have a surgical abdomen at this time surgery will sign off please reconsult if patient condition deteriorates
[2019-06-26] MEDS: Sertraline 50 MG Tablet 25 MG PO (11:43)
[2019-06-26 11:55] LABS: Bedside Glucose 292 mg/dL (70-110)
--- NOTE | 2019-06-26 12:58 | PN_ITS ---
Patient Problems: Active and Suspected Problems (Last Reviewed 06/25/19 @ 13:23 by Shruthi Santana PA-C) Abdominal pain (Acute) Flash pulmonary edema (Acute) Subjective: Patient seen and examined. She still remains restless and agitated. Unable to do review of systems on account of agitation. Vitals/I&O's: Vital Signs Temp Pulse Resp BP Pulse Ox 97.9 F 89 18 111/73 97 06/26/19 11:34 06/26/19 11:34 06/26/19 11:34 06/26/19 11:34 06/26/19 11:34 Oxygen Flow Rate (L/min) 3 Oxygen Delivery Method Room Air Weight: 260 lb 5.855 oz Body Mass Index (BMI) 46.5 Finger Stick Blood Glucose 480 Intake and Output for Last 24 Hours 06/24/19 06/25/19 06/26/19 23:59 23:59 23:59 Intake Total 300 / 300 917.5 / 917.5 795.83 / 795.83 Output Total 1780 / 1780 Balance -1480 / -1480 917.5 / 917.5 795.83 / 795.83 General: Alert,agitated, moaning and thrashing around HEENT: Atraumatic, PERRLA, EOMI, Normocephalic Neck: Supple, No JVD, Negative Carotid Bruits Lungs: mild wheezing in all lung davalos, with few crackles. on 2L of oxygen Cardiovascular: Regular rate, No murmurs Abdomen: Bowel Sounds Present, Soft, Non Tender Extremities: No edema, Capillary Refill Less than 3 Seconds Skin: erythematous, papular rash over upper outer arms , back and thighs Musculoskeletal: No Tenderness to Palpation of Joints or Extremities Neurological: Cranial nerves II-XII grossly intact Psych/Mental Status: agitated Laboratory Results 06/25/19 16:01: POC Glucose 275 H 06/25/19 22:39: POC Glucose 290 H 06/26/19 06:09: WBC 17.3 H, RBC 5.11, Hgb 13.9, Hct 43.2, MCV 84.5, MCH 27.2, MCHC 32.2, RDW Std Deviation 43.6, RDW Coeff of Be 14.2, Plt Count 333, MPV 10.6, Immature Gran % (Auto) 0.600, Neut % (Auto) 74.2 H, Lymph % (Auto) 12.1 L, [place] % (Auto) 11.8 H, Eos % (Auto) 0.5, Baso % (Auto) 0.8, Absolute Neuts (auto) 12.9 H, Absolute Lymphs (auto) 2.10, Nucleated RBC % 0, Diff Path Review December06/26/19 06:09: Sodium 142, Potassium 3.3 L, Chloride 101, Carbon Dioxide 28.0, Anion Gap 13, BUN 22 H, Creatinine 1.24 H, Estim Creat Clear Calc 42.91, Est GFR (MDRD) Af Amer 56 L, Est GFR (MDRD) Non-Af 46 L, BUN/Creatinine Ratio 17.7, Glucose 280 H, Calcium 9.2 06/26/19 08:00: POC Glucose 270 H 06/26/19 11:38: POC Glucose 292 H Diagnostic Data Chest X-Ray 06/22/19 09:34 IMPRESSION: There has been improvement in the CHF. Mild residual changes persist. Blunting of the costophrenic angles bilaterally. Electronically Signed: Tristan De La Garza, at 12:39 EST , Service support , Lumbar Spine X-Ray 06/23/19 09:20 IMPRESSION: Degenerative changes of the spine, as detailed above. Electronically Signed: Tristan De La Garza, at 13:25 EST , Service support , KUB X-Ray 06/25/19 03:43 IMPRESSION: Possible localized ileus in the left upper quadrant versus early small bowel obstruction. Clinical correlation recommended. Electronically Signed: Nivia Thorpe MD at 5:57 EST , Service support , Current Medications Hydrocodone Bitart/Acetaminophen ([place] 5mg-325mg) 1 tablet PO Q6H PRN PRN PRN Reason: PAIN -10/10 Last Admin: 06/24/19 23:36 Dose: 1 tablet Documented by: Albuterol/Ipratropium (Duoneb) 3 ml INHALATION Q6HWA.RT [facility] Last Admin: 06/26/19 07:15 Dose: Not Given Documented by: Allopurinol (Zyloprim) 100 mg PO DAILY@2200 [facility] Last Admin: 06/25/19 22:21 Dose: Not Given Documented by: Atorvastatin Calcium (Lipitor) 20 mg PO QHS [facility] Last Admin: 06/25/19 22:19 Dose: Not Given Documented by: Carvedilol (Coreg) 12.5 mg PO BID [facility] Last Admin: 06/26/19 09:44 Dose: 12.5 mg Documented by: Dextrose (D50w Syringe) 0 gm IV X1 PRN; Protocol PRN Reason: Hypoglycemia Enoxaparin Sodium (Lovenox) 40 mg SC DAILY@1000 [facility] Last Admin: 06/26/19 09:50 Dose: 40 mg Documented by: Gabapentin (Neurontin) 200 mg PO TIDCM [facility] Last Admin: 06/26/19 11:43 Dose: 200 mg Documented by: Glucagon () 1 mg IM .X1 PRN PRN Reason: Hypoglycemia Guaifenesin (Mucinex) 1,200 mg PO BID [facility] Last Admin: 06/26/19 10:05 Dose: Not Given Documented by: Guaifenesin/Codeine Phosphate (Robitussin Ac) 10 ml PO Q6H PRN PRN PRN Reason: COUGH Hydroxychloroquine Sulfate (Plaquenil) 200 mg PO BIDCM [facility] Last Admin: 06/26/19 09:59 Dose: 200 mg Documented by: Lactated Ringer's () 1,000 mls @ 50 mls/hr IV .Q20H [facility] Last Infusion: 06/26/19 11:36 Dose: 50 mls/hr Documented by: Insulin Human Lispro (Humalog Kwikpen ([facility])) 0 unit SC ACHS [facility]; Protocol Last Admin: 06/26/19 11:40 Dose: 4 units Documented by: Insulin Human Regular (Humulin R U-500 ([facility])) 35 units SC BREAKFAST [facility] Last Admin: 06/26/19 08:04 Dose: Not Given Documented by: Insulin Human Regular (Humulin R U-500 ([facility])) 35 units SC DINNER [facility] Last Admin: 06/25/19 17:00 Dose: Not Given Documented by: Levothyroxine Sodium (Synthroid) 75 mcg PO DAILY@0600 [facility] Last Admin: 06/26/19 06:29 Dose: Not Given Documented by: Lidocaine (Lidoderm Patch) 1 patch TOPICAL DAILY [facility]; Protocol Last Admin: 06/26/19 09:50 Dose: 1 patch Documented by: Losartan Potassium (Cozaar) 50 mg PO BID [facility] Last Admin: 06/26/19 09:44 Dose: 50 mg Documented by: Montelukast Sodium (Singulair) 10 mg PO DAILY [facility] Last Admin: 06/26/19 10:05 Dose: Not Given Documented by: Morphine Sulfate () 2 mg IV Q4H PRN PRN PRN Reason: Pain Score 6-10/10 Last Admin: 06/26/19 10:08 Dose: 2 mg Documented by: Nutritional Formula (Lactose Free) (Glucerna Shake) 60 ml PO 4X/DAY [facility] Last Admin: 06/26/19 10:05 Dose: Not Given Documented by: Nystatin (Mycostatin Powder) 1 applic TOPICAL BID PRN PRN; Protocol PRN Reason: rash Last Admin: 06/25/19 22:50 Dose: 1 applicatio Documented by: Potassium Chloride (K-Dur) 40 meq PO BIDCM [facility] Last Admin: 06/26/19 09:40 Dose: 40 meq Documented by: Pramipexole Dihydrochloride (Mirapex) 0.5 mg PO QHS [facility] Last Admin: 06/25/19 22:19 Dose: Not Given Documented by: Sertraline HCl (Zoloft) 25 mg PO DAILY [facility] Sodium Chloride () 10 - 40 ml IV UD PRN PRN Reason: SALINE FLUSH Last Admin: 06/25/19 22:15 Dose: 10 ml Documented by: STROKE Vital Signs/Narrative: Vital Signs Temp Pulse Resp BP Pulse Ox 06/26/19 11:34 97.9 F 89 18 111/73 97 Medical Necessity - Tobacco Use Smoking Status: Never smoker Assessment/Plan All Active Problems (Last Reviewed 06/25/19 @ 13:23 by Shruthi Santana PA-C) History of type 1 diabetes mellitus (Acute) Abdominal pain (Acute) Acute respiratory failure with hypoxia (Acute) Flash pulmonary edema (Acute) NSTEMI (non-ST elevated myocardial infarction) (Resolved) Hypokalemia (Acute) Congestive heart failure (Acute) 1. Acute on chronic systolic heart failure probably due to Takotsubo cardiomyopathy * shortness of breath has improved; was originally diagnosed as acute on chronic HFpEF, but repeat echo showed EF as below * now on room air. * 2D echo(06/23/19); severe segmental systolic dysfunction, with EF of 20%, and mild enlarged left atrium. Previous EF was 55% (from 04/06), so this shows a significant decrease in her EF * lasix decreased to IV lasix 40mg daily by cardiology. Patient refusing oral meds * per cardiology, decrease in EF is likely from another episode of Takotsubo;s cardiomyopathy; conservative management advocated for now, per cardiology. * 2. Acute metabolic encephalopathy * likely due to her being off her psych meds due to QT prolongation * UA showed no evidence of UTI * EKG this morning showed QTc had decreased to 473 * will start sertraline today, and continue holding other psych meds * 3. ? Ileus: * KUB showed possible localised ileus in left upper quadrant vs early small bowel obstruction. * general surgery on board; advocate conservative management * diet resumed today * 4. Prolonged QT: * improving. QTc down to 473 today * will resume sertraline today; continue holding zofran, lyrica and haldol * cardiology on board * will continue monitoring. keep potassium >4 and magnesium >2 * 5. Respiratory alkalosis: * stable. * 6. Elevated troponins: * cardiology on board; advocate conservative management for now. Per cardiology, they are concerneda bout stress induced cadiolmyopathy. She does have a history of takotsubo cardiomyopathy.l * 2D echo: as under 1. * 7. Hypertension * controlled. * on carvedilol and losartan * 8. Type 2 diabetes mellitus: on U-500 insulin 35IU qpm. This was held as she was refusing to eat. ISS. Accuchecks q6hrs 9. History of paroxysmal afib: on carvedilol 8. Hyperlipidemia: on statin 9. History of Takotsubo's cardiomyopathy and CAD: on coreg, losartan and statin 10. History of depression and fibromyalgia:will resume zoloft today 11. chronic nausea: * has improved. * DVT prophylaxis: lovenox Code Visit Inpatient E&M: 38132 Subs Hosp L2
[2019-06-26] MEDS: Glucerna Shake 120 ML LIQUID 60 ML PO ×2 (16:34→22:35)
[2019-06-26 16:46] LABS: Bedside Glucose 301 mg/dL (70-110)
--- NOTE | 2019-06-26 18:44 | NURSING ---
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
[2019-06-26] MEDS: Ipratropium/Albuterol Sulfate 3 ML AMPUL.NEB INHALATION (18:51)
--- NOTE | 2019-06-26 21:08 | NURSING ---
THIS RN CAME IN AND PATIENT WAS SL
[2019-06-26] MEDS: Pramipexole Di-HCl 0.5 MG Tablet PO (22:30)
[2019-06-26] MEDS: Allopurinol 100 MG Tablet PO (22:30)
[2019-06-26] MEDS: Atorvastatin Calcium 20 MG Tablet PO (22:41)
[2019-06-26 23:01] LABS: Bedside Glucose 268 mg/dL (70-110)
[2019-06-27] VITALS (11 sets, daily range): BP systolic 96–110; BP diastolic 51–92; PULSE 65–73; RESP 16–18; TEMP 36.4–36.8; O2SAT 94–98
--- NOTE | 2019-06-27 00:10 | NURSING ---
PATIENT KEEPS PULLING OFF MONITOR, NOT WANTING TO WEAR.
[2019-06-27] MEDS: Levothyroxine 75 MCG Tablet PO (04:18)
[2019-06-27] MEDS: 0.9% Saline Lock 10 ML Syringe IV ×2 (04:18→17:16)
[2019-06-27] MEDS: Glycerin/Hypromellose/PEG400 15 ml Bottle 1 DRP EACH EYE ×7 (05:58→22:23)
[2019-06-27 08:07] LABS: Absolute Lymphocyte Count 2.46 X10^3/uL (0.83-4.51); Basophil# 0.15 X10^3/uL; Basophil% 1.2 % (0-1); Eosinophil# 0.25 X10^3/uL; Hematocrit 39.7 % (37-47); Hemoglobin 12.5 g/dL (12.0-15.0); Lymphocyte # 2.46 X10^3/ul (4.0); Lymphocyte % 20.2 % (19-41); Mean Corp Hgb Conc 31.5 g/dL (32-36); Mean Corpuscular Hgb 26.9 pg (27.0-32.0); Mean Corpuscular Volume 85.6 fL (81-99); Mean Platelet Vol. 10.4 fl (6.2-12.0); Monocyte# 1.24 X10^3/uL; Monocyte% 10.2 % (0-10); NRBC Flagged by Analyzer 0 % (0-5); Neutrophil # 8.03 X10^3/uL (2.7-7.7); Neutrophil % 65.8 % (47-70); Platelet Count 265 K/mm3 (150-450); RBC Distribution Width CV 14.5 % (11.6-14.6); RBC Distribution Width SD 44.8 fl (35.1-43.9); Red Blood Count 4.64 M/mm3 (4.2-5.4); White Blood Count 12.2 K/mm3 (4.4-11.0)
--- NOTE | 2019-06-27 08:17 | EKG12_ITS ---
Test Reason : Blood Pressure : / mmHG Vent. Rate : 066 BPM Atrial Rate : 066 BPM P-R Int : 134 ms QRS Dur : 086 ms QT Int : 524 ms P-R-T Axes : 028 -40 022 degrees QTc Int : 549 ms Sinus rhythm with occasional Premature ventricular complexes Left axis deviation Prolonged QT Abnormal ECG When compared with ECG of 26-JUN-2019 06:13, MANUAL COMPARISON REQUIRED, DATA IS UNCONFIRMED Confirmed by SAMIRA HASSAN ([id number]), editor department ADAMS GOODEN ([id number]) on 07/03/2019 11:30:21 AM Referred By: Jacques Santos Confirmed By:SAMIRA HASSAN
[2019-06-27 08:26] LABS: Bedside Glucose 254 mg/dL (70-110)
[2019-06-27 08:42] LABS: Anion Gap 8 (5-15); BUN 29 mg/dL (7-18); BUN/Creat Ratio 18.5 RATIO (10-20); Calcium,Total 9.1 mg/dL (8.5-10.1); Chloride 104 mmol/L (98-107); Creatinine, Serum 1.57 mg/dL (0.55-1.02); EST Glomerular Filtration Rate 35 mL/min (>60); Est Glom Filt Rate - Afr Amer 43 mL/min (>60); Estimated Creatinine Clearance 33.89 ml/min; Glucose 290 mg/dL (74-106); Sodium Level 140 mmol/L (136-145)
--- NOTE | 2019-06-27 09:33 | PN_ITS ---
Patient Problems: Active and Suspected Problems (Last Reviewed 06/25/19 @ 13:23 by Shruthi Santana PA-C) Abdominal pain (Acute) Flash pulmonary edema (Acute) Subjective: Patient seen and examined. Patient is much calmer today though she does tell me that she was thrashing around during the night. She still required a sitter; sh po does complain of nausea but has not vomited yet and denies any fever chills, chest pain, abdominal pain. Review of systems otherwise negative. Sertraline was started yesterday. EKG repeated today however showed QT prolongation up to 547 from 473 yesterday. Vitals/I&O's: Vital Signs Temp Pulse Resp BP Pulse Ox 98.2 F 69 17 96/51 L 96 06/27/19 08:59 06/27/19 08:59 06/27/19 08:59 06/27/19 08:59 06/27/19 08:59 Oxygen Flow Rate (L/min) 3 Oxygen Delivery Method Room Air Weight: 261 lb 11.019 oz Body Mass Index (BMI) 46.5 Finger Stick Blood Glucose 480 Intake and Output for Last 24 Hours 06/25/19 06/26/19 06/27/19 23:59 23:59 23:59 Intake Total 917.5 / 917.5 1648.33 / 1948.33 300 / 300 Output Total 100 / 100 Balance 917.5 / 917.5 1648.33 / 1948.33 200 / 200 General: Alert, much calmer today HEENT: Atraumatic, PERRLA, EOMI, Normocephalic Neck: Supple, No JVD, Negative Carotid Bruits Lungs: clear to auscultation, on room air Cardiovascular: Regular rate, No murmurs Abdomen: Bowel Sounds Present, Soft, Non Tender Extremities: No edema, Capillary Refill Less than 3 Seconds Skin: erythematous, papular rash over upper outer arms , back and thighs Musculoskeletal: No Tenderness to Palpation of Joints or Extremities Neurological: Cranial nerves II-XII grossly intact Psych/Mental Status: calm, Laboratory Results 06/26/19 11:38: POC Glucose 292 H 06/26/19 16:17: POC Glucose 301 H 06/26/19 22:26: POC Glucose 268 H 06/27/19 07:55: WBC 12.2 H, RBC 4.64, Hgb 12.5, Hct 39.7, MCV 85.6, MCH 26.9 L, MCHC 31.5 L, RDW Std Deviation 44.8 H, RDW Coeff of Be 14.5, Plt Count 265, MPV 10.4, Immature Gran % (Auto) 0.600, Neut % (Auto) 65.8, Lymph % (Auto) 20.2, Wilbarger % (Auto) 10.2 H, Eos % (Auto) 2.0, Baso % (Auto) 1.2 H, Absolute Neuts (auto) 8.0 H, Absolute Lymphs (auto) 2.46, Nucleated RBC % 0 06/27/19 07:55: Sodium 140, Potassium 4.0, Chloride 104, Carbon Dioxide 28.0, Anion Gap 8, BUN 29 H, Creatinine 1.57 H, Estim Creat Clear Calc 33.89, Est GFR (MDRD) Af Amer 43 L, Est GFR (MDRD) Non-Af 35 L, BUN/Creatinine Ratio 18.5, Glucose 290 H, Calcium 9.1 06/27/19 08:18: POC Glucose 254 H Current Medications Albuterol/Ipratropium (Duoneb) 3 ml INHALATION Q6HWA.RT [facility] Last Admin: 06/27/19 06:58 Dose: Not Given Documented by: Allopurinol (Zyloprim) 100 mg PO DAILY@2200 [facility] Last Admin: 06/26/19 22:30 Dose: 100 mg Documented by: Atorvastatin Calcium (Lipitor) 20 mg PO QHS [facility] Last Admin: 06/26/19 22:41 Dose: 20 mg Documented by: Carvedilol (Coreg) 12.5 mg PO BID [facility] Last Admin: 06/26/19 23:10 Dose: 12.5 mg Documented by: Dextrose (D50w Syringe) 0 gm IV X1 PRN; Protocol PRN Reason: Hypoglycemia Enoxaparin Sodium (Lovenox) 40 mg SC DAILY@1000 [facility] Last Admin: 06/26/19 09:50 Dose: 40 mg Documented by: Gabapentin (Neurontin) 200 mg PO TIDCM [facility] Last Admin: 06/26/19 16:20 Dose: 200 mg Documented by: Glucagon () 1 mg IM .X1 PRN PRN Reason: Hypoglycemia Guaifenesin (Mucinex) 1,200 mg PO BID [facility] Last Admin: 06/26/19 20:46 Dose: Not Given Documented by: [facility] Admin: 06/26/19 16:20 Dose: 200 mg Documented by: Insulin Human Lispro (Humalog Kwikpen (Bk)) 0 unit SC ACHS [facility]; Protocol Last Admin: 06/26/19 22:30 Dose: 3 units Documented by: Insulin Human Regular (Humulin R U-500 (Bk)) 35 units SC BREAKFAST [facility] Last Admin: 06/26/19 08:04 Dose: Not Given Documented by: Insulin Human Regular (Humulin R U-500 (Bk)) 35 units SC DINNER [facility] Last Admin: 06/26/19 16:15 Dose: Not Given Documented by: Levothyroxine Sodium (Synthroid) 75 mcg PO DAILY@0600 [facility] Last Admin: 06/27/19 04:18 Dose: 75 mcg Documented by: Lidocaine (Lidoderm Patch) 1 patch TOPICAL DAILY [facility]; Protocol Last Admin: 06/26/19 09:50 Dose: 1 patch Documented by: Losartan Potassium (Cozaar) 50 mg PO BID [facility] Last Admin: 06/26/19 23:10 Dose: 50 mg Documented by: Montelukast Sodium (Singulair) 10 mg PO DAILY [facility] Last Admin: 06/26/19 10:05 Dose: Not Given Documented by: Morphine Sulfate () 2 mg IV Q4H PRN PRN PRN Reason: Pain Score 6-10/10 Last Admin: 06/26/19 10:08 Dose: 2 mg Documented by: Nutritional Formula (Lactose Free) (Glucerna Shake) 60 ml PO 4X/DAY [facility] Last Admin: 06/26/19 22:35 Dose: 60 ml Documented by: Nystatin (Mycostatin Powder) 1 applic TOPICAL BID PRN PRN; Protocol PRN Reason: rash Last Admin: 06/25/19 22:50 Dose: 1 applicatio Documented by: Potassium Chloride (K-Dur) 40 meq PO BIDCM [facility] Last Admin: 06/26/19 16:19 Dose: 40 meq Documented by: Pramipexole Dihydrochloride (Mirapex) 0.5 mg PO QHS [facility] Last Admin: 06/26/19 22:30 Dose: 0.5 mg Documented by: Promethazine HCl (Phenergan Tablet) 12.5 mg PO Q6H PRN PRN PRN Reason: NAUSEA/VOMITING Sertraline HCl (Zoloft) 25 mg PO DAILY [facility] Sodium Chloride () 10 - 40 ml IV UD PRN PRN Reason: SALINE FLUSH Last Admin: 06/27/19 04:18 Dose: 10 ml Documented by: STROKE Vital Signs/Narrative: Vital Signs Temp Pulse Resp BP Pulse Ox 06/27/19 08:59 98.2 F 69 17 96/51 L 96 06/27/19 06:58 96 Medical Necessity - Tobacco Use Smoking Status: Never smoker Assessment/Plan All Active Problems (Last Reviewed 06/25/19 @ 13:23 by Shruthi Santana PA-C) History of type 1 diabetes mellitus (Acute) Abdominal pain (Acute) Acute respiratory failure with hypoxia (Acute) Flash pulmonary edema (Acute) NSTEMI (non-ST elevated myocardial infarction) (Resolved) Hypokalemia (Acute) Congestive heart failure (Acute) 1. Acute on chronic systolic heart failure probably due to Takotsubo cardiomyopathy * now off oxygen. * 2D echo(06/23/19); severe segmental systolic dysfunction, with EF of 20%, and mild enlarged left atrium. Previous EF was 55% (from 04/06), so this shows a significant decrease in her EF * lasix now discontinued per cardiology * * 2. Acute metabolic encephalopathy * likely due to her being off her psych meds due to QT prolongation * UA showed no evidence of UTI * improving, she is much more lucid today, though she still required a sitter overnight. * zoloft was resumed yesterday because her QTc had decreased to 473; however, QTc this morning is back up to 547, so zoloft will have to be held * discussed with pharmacy about other options for antipsychotics which wont prolong QTc; aripiprazole seems to be the only option. However, due to her heart failure, which can be worsened by aripiprazole, this cannot be started 3. Prolonged QT: * QTc back up to 547 today * WIll hold zoloft which was resumed yesterday. Continue holding zofran, lyrica and haldol * will resume sertraline today; continue holding zofran, lyrica and haldol * cardiology on board * will continue monitoring. keep potassium >4 and magnesium >2 * 4. Hypertension * controlled. * on carvedilol and losartan * 5. Type 2 diabetes mellitus: * resumed lantus U-500 35IU qpm as she is now eating. ISS. Accuchecks ACHS. 6. History of paroxysmal afib: on carvedilol 7. Hyperlipidemia: on statin 8. History of Takotsubo's cardiomyopathy and CAD: on coreg, losartan and statin 9. History of depression and fibromyalgia: still has prolonged QT, so unable to resume meds. 10. chronic nausea: * on compazine. * DVT prophylaxis: lovenox Code Visit Inpatient E&M: 53790 Subs Hosp L2
--- NOTE | 2019-06-27 09:36 | NURSING ---
Patient allows for telemetry to be placed back on.
[2019-06-27] MEDS: Insulin Lispro 100 UNIT/ML INSULN.PEN SC ×2 (09:45→12:14)
[2019-06-27] MEDS: Gabapentin 100 MG Capsule 200 MG PO ×3 (09:48→17:12)
[2019-06-27] MEDS: Losartan Potassium 50 MG Tablet PO ×2 (09:48→21:01)
[2019-06-27] MEDS: Glucerna Shake 120 ML LIQUID 60 ML PO ×3 (09:48→17:14)
[2019-06-27] MEDS: Hydroxychloroquine 200 MG Tablet PO ×2 (09:48→17:12)
[2019-06-27] MEDS: Carvedilol 12.5 MG Tablet PO ×2 (09:48→21:01)
[2019-06-27] MEDS: Enoxaparin 40 MG/0.4 ML Syringe SC (09:49)
[2019-06-27] MEDS: Lidocaine 5% Patch 1 PATCH TOPICAL (09:49)
[2019-06-27] MEDS: Montelukast 10 MG Tablet PO (09:50)
--- NOTE | 2019-06-27 10:24 | NURSING ---
Sitter removed from room at 1020.
--- NOTE | 2019-06-27 11:30 | NURSING ---
Son calls in for update. Same given.
--- NOTE | 2019-06-27 12:09 | NURSING ---
Sitter no longer in room.
[2019-06-27 12:26] LABS: Bedside Glucose 241 mg/dL (70-110)
[2019-06-27] MEDS: proMETHazine 25 MG Tablet 12.5 MG PO (15:05)
[2019-06-27 17:26] LABS: Bedside Glucose 117 mg/dL (70-110)
[2019-06-27] MEDS: Atorvastatin Calcium 20 MG Tablet PO (21:01)
[2019-06-27] MEDS: Pramipexole Di-HCl 0.5 MG Tablet PO (21:01)
[2019-06-27] MEDS: guaiFENesin 1,200 MG Tablet 1200 MG PO (21:01)
[2019-06-27] MEDS: Allopurinol 100 MG Tablet PO (21:01)
[2019-06-27 21:10] LABS: Bedside Glucose 91 mg/dL (70-110)
[2019-06-28] VITALS (10 sets, daily range): BP systolic 90–115; BP diastolic 39–58; PULSE 57–74; RESP 16–20; TEMP 36.6–37; O2SAT 93–95
[2019-06-28] MEDS: Glycerin/Hypromellose/PEG400 15 ml Bottle 1 DRP EACH EYE ×5 (04:00→21:43)
[2019-06-28] MEDS: Levothyroxine 75 MCG Tablet PO (05:45)
[2019-06-28] MEDS: Gabapentin 100 MG Capsule 200 MG PO ×3 (08:59→17:12)
[2019-06-28] MEDS: Hydroxychloroquine 200 MG Tablet PO ×2 (08:59→17:12)
[2019-06-28] MEDS: Losartan Potassium 50 MG Tablet PO ×2 (09:00→21:43)
[2019-06-28] MEDS: Carvedilol 12.5 MG Tablet PO ×2 (09:00→21:44)
[2019-06-28] MEDS: Lidocaine 5% Patch 1 PATCH TOPICAL (09:00)
[2019-06-28] MEDS: guaiFENesin 1,200 MG Tablet 1200 MG PO ×2 (09:01→21:44)
[2019-06-28] MEDS: Enoxaparin 40 MG/0.4 ML Syringe SC (09:01)
[2019-06-28] MEDS: Montelukast 10 MG Tablet PO (09:02)
[2019-06-28 09:10] LABS: Bedside Glucose 123 mg/dL (70-110)
--- NOTE | 2019-06-28 11:56 | PN_ITS ---
Patient Problems: Active and Suspected Problems (Last Reviewed 06/25/19 @ 13:23 by Shruthi Santana PA-C) Abdominal pain (Acute) Flash pulmonary edema (Acute) Subjective: Patient was seen and examined today, she is alert and non-agitated, she answers simple questions appropriately. Patient's systolic blood pressure is been in the 90s, I did tell nursing however to continue to administer patient's cardiac medications as long as she was not lightheaded when she was up ambulating. Patient has no complaints of any chest pain or shortness of breath to this examiner. - Physical Exam Vitals/I&O's: Vital Signs Temp Pulse Resp BP Pulse Ox 97.9 F 72 16 91/39 L 94 06/28/19 08:40 06/28/19 08:40 06/28/19 08:40 06/28/19 08:40 06/28/19 08:40 Oxygen Flow Rate (L/min) 3 Oxygen Delivery Method Room Air Weight: 118.7 kg Body Mass Index (BMI) 46.5 Finger Stick Blood Glucose 480 Intake and Output for Last 24 Hours 06/26/19 06/27/19 06/28/19 23:59 23:59 23:59 Intake Total 1648.33 / 1948.33 1500 / 1500 480 / 480 Output Total 100 / 100 Balance 1648.33 / 1948.33 1400 / 1400 480 / 480 General: Alert, Oriented x3, Cooperative, No apparent distress, Well developed HEENT: Atraumatic, PERRLA, EOMI, Normocephalic Oral: Moist Mucosa Neck: Supple, Trachea Midline, Thyroid Normal Size and Texture Lungs: Normal air movement, Rales - Inspiratory rales are noted over the patient's right lower lung davalos Cardiovascular: Regular rate, Regular Rhythm, Normal S1, Normal S2, No murmurs, PMI Normal, No rub noted Abdomen: Bowel Sounds Present, Soft, Non Tender, Non-Distended, Obese Extremities: No clubbing, No cyanosis, Capillary Refill Less than 3 Seconds Skin: No rashes, No breakdown Musculoskeletal: No Tenderness to Palpation of Joints or Extremities Neurological: Cranial nerves II-XII grossly intact, Neuro grossly intact, Sensory exam intact to light touch and pain Psych/Mental Status: Normal Affect, Appropriate, Alert and oriented to time, place, person, mood and affect Laboratory Results 06/27/19 12:08: POC Glucose 241 H 06/27/19 16:59: POC Glucose 117 H 06/27/19 20:54: POC Glucose 91 06/28/19 08:37: POC Glucose 123 H Current Medications Albuterol/Ipratropium (Duoneb) 3 ml INHALATION Q6HWA.RT [facility] Last Admin: 06/28/19 06:55 Dose: Not Given Documented by: Allopurinol (Zyloprim) 100 mg PO DAILY@2200 [facility] Last Admin: 06/27/19 21:01 Dose: 100 mg Documented by: Atorvastatin Calcium (Lipitor) 20 mg PO QHS [facility] Last Admin: 06/27/19 21:01 Dose: 20 mg Documented by: Carvedilol (Coreg) 12.5 mg PO BID [facility] Last Admin: 06/28/19 09:00 Dose: 12.5 mg Documented by: Dextrose (D50w Syringe) 0 gm IV X1 PRN; Protocol PRN Reason: Hypoglycemia Enoxaparin Sodium (Lovenox) 40 mg SC DAILY@1000 [facility] Last Admin: 06/28/19 09:01 Dose: 40 mg Documented by: Gabapentin (Neurontin) 200 mg PO TIDCM [facility] Last Admin: 06/28/19 08:59 Dose: 200 mg Documented by: Glucagon () 1 mg IM .X1 PRN PRN Reason: Hypoglycemia Guaifenesin (Mucinex) 1,200 mg PO BID [facility] Last Admin: 06/28/19 09:01 Dose: 1,200 mg Documented by: Hydroxychloroquine Sulfate (Plaquenil) 200 mg PO BIDCM [facility] Last Admin: 06/28/19 08:59 Dose: 200 mg Documented by: Insulin Human Lispro (Humalog Kwikpen (Bkc)) 0 unit SC ACHS [facility]; Protocol Last Admin: 06/28/19 08:57 Dose: Not Given Documented by: Insulin Human Regular (Humulin R U-500 (Bkc)) 35 units SC BREAKFAST [facility] Last Admin: 06/28/19 08:58 Dose: 35 units Documented by: Insulin Human Regular (Humulin R U-500 (Bkc)) 35 units SC DINNER [facility] Last Admin: 06/27/19 17:11 Dose: 35 units Documented by: Levothyroxine Sodium (Synthroid) 75 mcg PO DAILY@0600 [facility] Last Admin: 06/28/19 05:45 Dose: 75 mcg Documented by: Lidocaine (Lidoderm Patch) 1 patch TOPICAL DAILY [facility]; Protocol Last Admin: 06/28/19 09:00 Dose: 1 patch Documented by: Losartan Potassium (Cozaar) 50 mg PO BID [facility] Last Admin: 06/28/19 09:00 Dose: 50 mg Documented by: Montelukast Sodium (Singulair) 10 mg PO DAILY [facility] Last Admin: 06/28/19 09:02 Dose: 10 mg Documented by: Morphine Sulfate () 2 mg IV Q4H PRN PRN PRN Reason: Pain Score 6-1010 Last Admin: 06/26/19 10:08 Dose: 2 mg Documented by: Nutritional Formula (Lactose Free) (Glucerna Shake) 60 ml PO 4X/DAY [facility] Last Admin: 06/28/19 09:01 Dose: Not Given Documented by: Nystatin (Mycostatin Powder) 1 applic TOPICAL BID PRN PRN; Protocol PRN Reason: rash Last Admin: 06/25/19 22:50 Dose: 1 applicatio Documented by: Potassium Chloride (K-Dur) 40 meq PO BIDCM [facility] Last Admin: 06/28/19 08:59 Dose: 40 meq Documented by: Pramipexole Dihydrochloride (Mirapex) 0.5 mg PO QHS [facility] Last Admin: 06/27/19 21:01 Dose: 0.5 mg Documented by: Promethazine HCl (Phenergan Tablet) 12.5 mg PO Q6H PRN PRN PRN Reason: NAUSEA/VOMITING Last Admin: 06/27/19 15:05 Dose: 12.5 mg Documented by: Sertraline HCl (Zoloft) 25 mg PO DAILY [facility] Sodium Chloride () 10 - 40 ml IV UD PRN PRN Reason: SALINE FLUSH Last Admin: 06/27/19 17:16 Dose: 10 ml Documented by: Medical Necessity - Tobacco Use Smoking Status: Never smoker Assessment/Plan All Active Problems (Last Reviewed 06/25/19 @ 13:23 by Shruthi Santana PA-C) History of type 1 diabetes mellitus (Ruled-out) Abdominal pain (Acute) Acute respiratory failure with hypoxia (Acute) Flash pulmonary edema (Acute) NSTEMI (non-ST elevated myocardial infarction) (Resolved) Hypokalemia (Acute) Congestive heart failure (Acute) #1 acute on chronic systolic congestive heart failure secondary to Takotsubo's cardiomyopathy-continue present medical care #2 acute metabolic encephalopathy-this appears to have resolved at this time, discharge planning is unresolved at this time, I told the patient I need to talk with her sister who she states is her power of ip attorney. #3 essential hypertension #4 type 2 diabetes-continue present care #5 hyperlipidemia #6 Takotsubo's cardiomyopathy #7 chronic depression-patient is unable to take Zoloft at this time due to a prolonged QT interval with the medication. #8 generalized debility-continue with PT and OT, I will need to talk to the patient's POA concerning discharge planning #9 coronary artery [id number] Code Visit Inpatient E&M: 69764 Subs Hosp L2
[2019-06-28 12:01] LABS: Bedside Glucose 120 mg/dL (70-110)
[2019-06-28] MEDS: Glucerna Shake 120 ML LIQUID 60 ML PO (17:13)
[2019-06-28 17:26] LABS: Bedside Glucose 97 mg/dL (70-110)
[2019-06-28] MEDS: Ipratropium/Albuterol Sulfate 3 ML AMPUL.NEB INHALATION (19:55)
[2019-06-28] MEDS: Atorvastatin Calcium 20 MG Tablet PO (21:43)
[2019-06-28] MEDS: Pramipexole Di-HCl 0.5 MG Tablet PO (21:44)
[2019-06-28] MEDS: Allopurinol 100 MG Tablet PO (21:44)
[2019-06-28 22:10] LABS: Bedside Glucose 81 mg/dL (70-110)
[2019-06-29] VITALS (13 sets, daily range): BP systolic 97–116; BP diastolic 53–64; PULSE 57–73; RESP 16–18; TEMP 36.4–36.8; O2SAT 92–100
[2019-06-29] MEDS: Glycerin/Hypromellose/PEG400 15 ml Bottle 1 DRP EACH EYE ×6 (03:28→22:24)
[2019-06-29] MEDS: 0.9% Saline Lock 10 ML Syringe IV ×2 (03:28→20:35)
[2019-06-29] MEDS: Levothyroxine 75 MCG Tablet PO (03:28)
[2019-06-29] MEDS: Ipratropium/Albuterol Sulfate 3 ML AMPUL.NEB INHALATION ×2 (07:18→20:10)
[2019-06-29] MEDS: Gabapentin 100 MG Capsule 200 MG PO ×3 (08:03→16:27)
[2019-06-29] MEDS: Hydroxychloroquine 200 MG Tablet PO ×2 (08:03→16:27)
[2019-06-29] MEDS: proMETHazine 25 MG Tablet 12.5 MG PO ×3 (08:09→23:05)
[2019-06-29 08:31] LABS: Bedside Glucose 108 mg/dL (70-110)
[2019-06-29] MEDS: Montelukast 10 MG Tablet PO (10:04)
[2019-06-29] MEDS: guaiFENesin 1,200 MG Tablet 1200 MG PO ×2 (10:04→22:16)
[2019-06-29] MEDS: Lidocaine 5% Patch 1 PATCH TOPICAL (10:04)
[2019-06-29] MEDS: Carvedilol 12.5 MG Tablet PO ×2 (10:04→22:16)
[2019-06-29] MEDS: Losartan Potassium 50 MG Tablet PO ×2 (10:04→22:16)
[2019-06-29] MEDS: Enoxaparin 40 MG/0.4 ML Syringe SC (10:04)
--- NOTE | 2019-06-29 10:40 | CASEMGMT ---
AJ reviewed chart and noted patient is interested in going to a senior care for rehab. AJ met with patient, introduced self and role at [facility]. She said she would prefer [facility] or [facility]. AJ told her that [facility] is not in network with her insurance, but [facility] is in network. She said that is fine. AJ told her she will stay here until her insurance authorizes her to go. That likely will not be today. AJ called [facility] regarding referral. AJ also faxed referral. Mckayla SNEED MSW
[2019-06-29 11:11] LABS: Bedside Glucose 116 mg/dL (70-110)
--- NOTE | 2019-06-29 14:03 | PCM.PN.CARD ---
Subjectve: The patient appears to be much more awake and alert and oriented today. She is taking oral intake. She denies any acute cardiovascular symptoms at this time. Objective: Vital Signs Temp Pulse Resp BP Pulse Ox 98.3 F 73 16 116/64 95 06/29/19 08:45 06/29/19 08:55 06/29/19 08:55 06/29/19 08:45 06/29/19 08:45 Oxygen Flow Rate (L/min) 3 Oxygen Delivery Method Room Air Weight: 270 lb 8.115 oz Body Mass Index (BMI) 46.5 Finger Stick Blood Glucose 480 Intake and Output for Last 24 Hours 06/27/19 06/28/19 06/29/19 23:59 23:59 23:59 Intake Total 1500 / 1500 530 / 530 560 / 560 Output Total 100 / 100 Balance 1400 / 1400 530 / 530 560 / 560 General: Awake, Alert, Oriented x 3, Cooperative, No Acute Distress, Obese HEENT: Atraumatic, Normocephalic, PERRL, EOMI, Sclera Non Icteric Oral: Moist Mucosa Neck: Supple, Good ROM, No JVD Lungs: Clear to auscultation Cardiovascular: Regular Rhythm, Normal S1, Normal S2 Psych/Mental Status: Appropriate Rhythm: Sinus rhythm Medical Necessity - Tobacco Use Smoking Status: Never smoker Assessment/Plan 1. Stress-induced cardiomyopathy From a cardiac standpoint she appears to be without acute cardiovascular symptoms. She does need to continue medical therapy which has included agents such as her beta-blockers and afterload reducing agents. She will need future follow-up of her left ventricular wall motion systolic function with a transthoracic echocardiogram to monitor her left ventricle-hopefully for recovery. 2. Prolonged QT She has had prolonged QT. There is been concerns that may be related to her medications with respect to her various psychiatric type medications. She had to be removed from these. She has been reintroduced to Zoloft although pending upon her QT interval whether or not she will be able to remain on it. 3. Hypertension Her blood pressures to be followed. Her medicines will be adjusted as needed. 4. Hyperlipidemia She will continue medical management as deemed appropriate. This note was generated using a voice recognition system and there may be incorrect words, spelling or punctuation that were not noted when reviewing the office note prior to saving.
--- NOTE | 2019-06-29 14:34 | CASEMGMT ---
Received call from [facility] and [facility] can accept patient. She will start the pre-cert. AJ notified patient that [facility] can take her and we just need to wait on insurance to approve her. AJ told her this would likely be tomorrow. Plan: [facility] pending pre-cert. Mckayla SNEED MSW
[2019-06-29] MEDS: Glucerna Shake 120 ML LIQUID 60 ML PO ×2 (14:38→22:16)
[2019-06-29] MEDS: HYDROcodone Bitartrate/Apap 5/325 Tablet PO ×2 (16:34→23:05)
--- NOTE | 2019-06-29 17:47 | PCM.PROGNOTE ---
Patient Problems: Active and Suspected Problems (Last Reviewed 06/25/19 @ 13:23 by Shruthi Santana PA-C) Abdominal pain (Acute) Flash pulmonary edema (Acute) Subjective: Patient was seen and examined today, her family members were in the room during the time of my examination. Patient is agreed to go to a retirement facility short-term for rehab services, we are presently awaiting her insurance approval for this. - Physical Exam Vitals/I&O's: Vital Signs Temp Pulse Resp BP Pulse Ox 97.8 F 65 16 101/54 L 100 06/29/19 14:36 06/29/19 15:00 06/29/19 14:36 06/29/19 14:36 06/29/19 14:36 Oxygen Flow Rate (L/min) 3 Oxygen Delivery Method Room Air Weight: 122.7 kg Body Mass Index (BMI) 46.5 Finger Stick Blood Glucose 480 Intake and Output for Last 24 Hours 06/27/19 06/28/19 06/29/19 23:59 23:59 23:59 Intake Total 1500 / 1500 530 / 530 560 / 560 Output Total 100 / 100 Balance 1400 / 1400 530 / 530 560 / 560 General: Alert, Oriented x3, Cooperative, No apparent distress, Well developed, Well nourished HEENT: Atraumatic, PERRLA, EOMI, Normocephalic Oral: Moist Mucosa Neck: Supple, Trachea Midline, Thyroid Normal Size and Texture Lungs: Clear to auscultation, No rhonchi, No wheeze, Diminished Cardiovascular: Regular rate, Regular Rhythm, Normal S1, Normal S2, No murmurs, PMI Normal, No rub noted, No Gallop Abdomen: Bowel Sounds Present, Soft, Non Tender, Non-Distended, Obese Extremities: No clubbing, No cyanosis, Capillary Refill Less than 3 Seconds Skin: No rashes, No breakdown Musculoskeletal: No Tenderness to Palpation of Joints or Extremities Neurological: Cranial nerves II-XII grossly intact, Neuro grossly intact, Sensory exam intact to light touch and pain, Coordination normal Psych/Mental Status: Normal Affect, Appropriate, Alert and oriented to time, place, person, mood and affect Laboratory Results 06/28/19 21:39: POC Glucose 81 06/29/19 07:57: POC Glucose 108 06/29/19 11:08: POC Glucose 116 H Current Medications Hydrocodone Bitart/Acetaminophen ([place] 5mg-325mg) 1 tablet PO Q6H PRN PRN PRN Reason: Pain Score 4-5/10 Last Admin: 06/29/19 16:34 Dose: 1 tablet Documented by: Albuterol/Ipratropium (Duoneb) 3 ml INHALATION Q6HWA.RT [facility] Last Admin: 06/29/19 13:45 Dose: Not Given Documented by: Allopurinol (Zyloprim) 100 mg PO DAILY@2200 [facility] Last Admin: 06/28/19 21:44 Dose: 100 mg Documented by: Atorvastatin Calcium (Lipitor) 20 mg PO QHS [facility] Last Admin: 06/28/19 21:43 Dose: 20 mg Documented by: Carvedilol (Coreg) 12.5 mg PO BID [facility] Last Admin: 06/29/19 10:04 Dose: 12.5 mg Documented by: Dextrose (D50w Syringe) 0 gm IV X1 PRN; Protocol PRN Reason: Hypoglycemia Enoxaparin Sodium (Lovenox) 40 mg SC DAILY@1000 [facility] Last Admin: 06/29/19 10:04 Dose: 40 mg Documented by: Gabapentin (Neurontin) 200 mg PO TIDCM [facility] Last Admin: 06/29/19 16:27 Dose: 200 mg Documented by: Glucagon () 1 mg IM .X1 PRN PRN Reason: Hypoglycemia Guaifenesin (Mucinex) 1,200 mg PO BID [facility] Last Admin: 06/29/19 10:04 Dose: 1,200 mg Documented by: Hydroxychloroquine Sulfate (Plaquenil) 200 mg PO BIDCM [facility] Last Admin: 06/29/19 16:27 Dose: 200 mg Documented by: Insulin Human Lispro (Humalog Kwikpen (Bkc)) 0 unit SC ACHS [facility]; Protocol Last Admin: 06/29/19 16:26 Dose: Not Given Documented by: Insulin Human Regular (Humulin R U-500 (Bkc)) 35 units SC BREAKFAST [facility] Last Admin: 06/29/19 07:55 Dose: 35 units Documented by: Insulin Human Regular (Humulin R U-500 (Bkc)) 35 units SC DINNER [facility] Last Admin: 06/29/19 16:31 Dose: 35 units Documented by: Levothyroxine Sodium (Synthroid) 75 mcg PO DAILY@0600 [facility] Last Admin: 06/29/19 03:28 Dose: 75 mcg Documented by: Lidocaine (Lidoderm Patch) 1 patch TOPICAL DAILY [facility]; Protocol Last Admin: 06/29/19 10:04 Dose: 1 patch Documented by: Losartan Potassium (Cozaar) 50 mg PO BID [facility] Last Admin: 06/29/19 10:04 Dose: 50 mg Documented by: Montelukast Sodium (Singulair) 10 mg PO DAILY [facility] Last Admin: 06/29/19 10:04 Dose: 10 mg Documented by: Nutritional Formula (Lactose Free) (Glucerna Shake) 60 ml PO 4X/DAY [facility] Last Admin: 06/29/19 14:38 Dose: 60 ml Documented by: Nystatin (Mycostatin Powder) 1 applic TOPICAL BID PRN PRN; Protocol PRN Reason: rash Last Admin: 06/25/19 22:50 Dose: 1 applicatio Documented by: Potassium Chloride (K-Dur) 40 meq PO BIDCM [facility] Last Admin: 06/29/19 16:27 Dose: 40 meq Documented by: Pramipexole Dihydrochloride (Mirapex) 0.5 mg PO QHS [facility] Last Admin: 06/28/19 21:44 Dose: 0.5 mg Documented by: Promethazine HCl (Phenergan Tablet) 12.5 mg PO Q6H PRN PRN PRN Reason: NAUSEA/VOMITING Last Admin: 06/29/19 14:38 Dose: 12.5 mg Documented by: Sertraline HCl (Zoloft) 25 mg PO DAILY [facility] Sodium Chloride () 10 - 40 ml IV UD PRN PRN Reason: SALINE FLUSH Last Admin: 06/29/19 03:28 Dose: 10 ml Documented by: Medical Necessity - Tobacco Use Smoking Status: Never smoker Assessment/Plan All Active Problems (Last Reviewed 06/25/19 @ 13:23 by Shruthi Santana PA-C) History of type 1 diabetes mellitus (Ruled-out) Abdominal pain (Acute) Acute respiratory failure with hypoxia (Acute) Flash pulmonary edema (Acute) NSTEMI (non-ST elevated myocardial infarction) (Resolved) Hypokalemia (Acute) Congestive heart failure (Acute) #1 acute on chronic systolic congestive heart failure secondary to Takotsubo's cardiomyopathy-continue present medical care #2 acute metabolic encephalopathy-this appears to have resolved at this time, again patient is agreed to go to a retirement facility for short-term rehab services, we are awaiting approval #3 essential hypertension #4 type 2 diabetes-continue present care #5 hyperlipidemia #6 Takotsubo's cardiomyopathy #7 chronic depression-patient is unable to take Zoloft at this time due to a prolonged QT interval with the medication. #8 generalized debility-continue with PT and OT #9 coronary artery [id number] Code Visit Inpatient E&M: 51160 Subs Hosp L2
[2019-06-29 19:20] LABS: Bedside Glucose 112 mg/dL (70-110)
[2019-06-29] MEDS: Allopurinol 100 MG Tablet PO (22:16)
[2019-06-29] MEDS: Pramipexole Di-HCl 0.5 MG Tablet PO (22:16)
[2019-06-29] MEDS: Atorvastatin Calcium 20 MG Tablet PO (22:16)
[2019-06-29 22:35] LABS: Bedside Glucose 71 mg/dL (70-110)
[2019-06-29 23:16] LABS: Bedside Glucose 84 mg/dL (70-110)
[2019-06-30] MEDS: Glycerin/Hypromellose/PEG400 15 ml Bottle 1 DRP EACH EYE ×4 (02:05→10:46)
[2019-06-30 03:00] VITALS: PULSE 57
[2019-06-30 04:10] VITALS: BP 93/42; PULSE 67; RESP 16; TEMP 36.6; O2SAT 95
[2019-06-30] MEDS: Levothyroxine 75 MCG Tablet PO (06:21)
[2019-06-30] MEDS: proMETHazine 25 MG Tablet 12.5 MG PO (06:23)
[2019-06-30 07:00] VITALS: PULSE 63
[2019-06-30 07:28] VITALS: PULSE 69; RESP 16
[2019-06-30] MEDS: Ipratropium/Albuterol Sulfate 3 ML AMPUL.NEB INHALATION ×2 (07:28→13:03)
[2019-06-30 07:55] LABS: Bedside Glucose 131 mg/dL (70-110)
[2019-06-30] MEDS: Gabapentin 100 MG Capsule 200 MG PO ×2 (08:35→11:43)
[2019-06-30] MEDS: Hydroxychloroquine 200 MG Tablet PO (08:36)
[2019-06-30] MEDS: HYDROcodone Bitartrate/Apap 5/325 Tablet PO (08:41)
--- NOTE | 2019-06-30 09:09 | PCM.PN.CARD ---
Subjectve: The patient is awake and alert. She denies any acute chest discomfort or difficulty breathing at this time. Objective: Vital Signs Temp Pulse Resp BP Pulse Ox 97.9 F 69 16 93/42 L 95 06/30/19 04:10 06/30/19 07:28 06/30/19 07:28 06/30/19 04:10 06/30/19 04:10 Oxygen Flow Rate (L/min) 3 Oxygen Delivery Method Room Air Weight: 270 lb 11.642 oz Body Mass Index (BMI) 46.5 Finger Stick Blood Glucose 480 Intake and Output for Last 24 Hours 06/28/19 06/29/19 06/30/19 23:59 23:59 23:59 Intake Total 530 / 530 900 / 900 120 / 120 Balance 530 / 530 900 / 900 120 / 120 General: Awake, Alert, Oriented x 3, Cooperative, No Acute Distress HEENT: Atraumatic, Normocephalic, PERRL, EOMI, Sclera Non Icteric Oral: Moist Mucosa Neck: Supple, Good ROM, No JVD Lungs: Clear to auscultation Cardiovascular: Regular Rhythm, Normal S1, Normal S2 Abdomen: Bowel Sounds Present, Soft, Non Tender Extremities: No edema Psych/Mental Status: Appropriate Rhythm: Sinus rhythm Medical Necessity - Tobacco Use Smoking Status: Never smoker Assessment/Plan 1. Stress-induced cardiomyopathy From a cardiac standpoint she appears to be without acute cardiovascular symptoms. She does need to continue medical therapy which has included agents such as her beta-blockers and afterload reducing agents. She will need future follow-up of her left ventricular wall motion systolic function with a transthoracic echocardiogram to monitor her left ventricle-hopefully for recovery. 2. Prolonged QT She has had prolonged QT. There is been concerns that may be related to her medications with respect to her various psychiatric type medications. She had to be removed from these. She has been reintroduced to Zoloft although pending upon her QT interval whether or not she will be able to remain on it. 3. Hypertension Her blood pressures to be followed. Her medicines will be adjusted as needed. 4. Hyperlipidemia She will continue medical management as deemed appropriate. Overall, the patient will continue cardiovascular medical therapy with adjustment as needed. She will need continued future outpatient cardiovascular follow-up including echocardiographic studies to monitor her left ventricular wall motion and systolic function. In the meantime she will continue noncardiac evaluation care per internal medicine. This note was generated using a voice recognition system and there may be incorrect words, spelling or punctuation that were not noted when reviewing the office note prior to saving.
[2019-06-30 10:07] LABS: Pathologist Review Reviewed
[2019-06-30 10:10] VITALS: BP 96/37; PULSE 57; RESP 18; TEMP 36.6; O2SAT 93
[2019-06-30] MEDS: Lidocaine 5% Patch 1 PATCH TOPICAL (10:45)
[2019-06-30] MEDS: Glucerna Shake 120 ML LIQUID 60 ML PO (10:47)
[2019-06-30] MEDS: Enoxaparin 40 MG/0.4 ML Syringe SC (10:47)
[2019-06-30] MEDS: guaiFENesin 1,200 MG Tablet 1200 MG PO (10:48)
[2019-06-30] MEDS: Carvedilol 12.5 MG Tablet PO (10:48)
[2019-06-30] MEDS: Montelukast 10 MG Tablet PO (10:49)
[2019-06-30] MEDS: Losartan Potassium 50 MG Tablet PO (10:50)
--- NOTE | 2019-06-30 11:31 | CASEMGMT ---
Received call from Gifty with [employer] and patient was approved. AJ spoke with patient and let her know. She confirmed her sister would transport her. AJ notified RN that patient was approved. Await orders. Mckayla CHINCHILLA
[2019-06-30 11:50] LABS: Bedside Glucose 147 mg/dL (70-110)
--- NOTE | 2019-06-30 12:00 | PCM.EXTCARCO ---
- Diet 06/26/19 08:30 Diet: Cardiac: Calorie-Controlled Food consistency:: Regular Liquid Consistency:: Regular/Thin Is pt able to select menu?: Yes Diet Comments: 2GM cardiac diet How many daily calories?: 1800 calorie - Routine Orders/Code Status Enema Type: Fleetz Enema Frequency: Daily PRN Suppository Type: Dulcolax 10mg Suppository Frequency: Daily PRN Routine Lab Work: CBC, BMP, - - Q Week Code Status: Full Code - Wound(s) Bilateral elbows Wound Type: Abrasion roof of mouth Wound Type: Pressure Injury - Suggestions for Active Care Change Position every (hours): 2 Times a day to sit in chair: 3 - Therapies Physical Therapy: Eval and Treat Occupational Therapy: Eval and Treat - Problem/Diagnosis (1) Flash pulmonary edema Status: Acute Current Visit: Yes (2) Congestive heart failure Status: Acute Current Visit: Yes (3) Type 2 diabetes mellitus Status: Chronic Current Visit: No (4) GERD (gastroesophageal reflux disease) Status: Chronic Current Visit: No (5) Paroxysmal atrial fibrillation Status: Chronic Current Visit: No (6) Takotsubo cardiomyopathy Status: Chronic Current Visit: No (7) Morbid obesity with BMI of 40.0-44.9, adult Status: Chronic Current Visit: No - Allergies/Procedures Done in Hospital Allergies/Adverse Reactions: Allergies ciprofloxacin [From Cipro] Allergy (Verified 06/20/19 20:26) Shortness of breath ciprofloxacin HCl [From Cipro] Allergy (Verified 06/20/19 20:26) Shortness of breath cyclobenzaprine [From Flexeril] Allergy (Verified 06/20/19 20:26) Rash cyclobenzaprine HCl [From Flexeril] Allergy (Verified 06/20/19 20:26) Rash ketorolac tromethamine [From Toradol] Allergy (Verified 06/20/19 20:26) Chest tightness sulfamethoxazole [From Bactrim] Allergy (Verified 06/20/19 20:26) Itching trimethoprim [From Bactrim] Allergy (Verified 06/20/19 20:26) Itching metformin Adverse Reaction (Verified 06/20/19 20:26) Other headache valacyclovir HCl [From Valtrex] Adverse Reaction (Verified 06/20/19 20:26) Other Procedures: 2-D Echocardiogram - Type of Care/Length of Stay Estimated LOS: Convalescent Care Less Than 30 days Type of Care Needed: Skilled Rehab Potential: Fair Prognosis: Fair - Additional Orders/Day of Discharge H&P will serve as current which was dated: 06/20/19 Day of Discharge: 06/30/19 - Dietary and Speech Recommendations Dietitian Recommendations/Changes: Continue current diet order & Glucerna 60mL 4x/day on medpass until PO at meals improves. Would benefit from outpatient Nutrition Services referral after discharge if interested in diet/lifestyle changes. - Follow Up Care Primary Care Physician: Devan Parks MD [Primary Care Provider] - Please follow up with your Primary Care Physician in: 1 Week Please Follow Up With: Son Ellison MD When: 1-2 Weeks, may see CONTINUOUS P[employer] P[employer] HELPER/PA
[2019-06-30 13:03] VITALS: PULSE 86; RESP 20
--- NOTE | 2019-06-30 13:15 | PCM.DC.SUM ---
<Ashli Baldwin - Last Filed: 06/30/19 13:33> Discharge Date and Diagnosis Date of Admission: 06/20/19 Date of Discharge: 06/30/19 - Primary Discharge Diagnosis Active and Suspected Problems (Last Reviewed 06/25/19 @ 13:23 by Shruthi Santana PA-C) 1. Acute on chronic systolic CHF with acute hypoxic respiratory failure 2. Acute metabolic encephalopathy 3. Prolonged QT-medication induced, improved. 4. Abnormal troponin 5. Hypertension 6. Type 2 diabetes mellitus 7. Paroxysmal atrial fibrillation 8. CAD 9. Hyperlipidemia 10. Fibromyalgia/chronic pain syndrome 11. Depression 12. Chronic nausea - Secondary Discharge Diagnosis Chronic Problems (Last Reviewed 06/25/19 @ 13:23 by Shruthi Santana PA-C) Fibromyalgia (Chronic) Type 2 diabetes mellitus (Chronic) 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) Diabetic gastroparesis (Chronic) GERD (gastroesophageal reflux disease) (Chronic) Seizure disorder (Chronic) Paroxysmal atrial fibrillation (Chronic) Chronic pain syndrome (Chronic) Takotsubo cardiomyopathy (Chronic) Iron deficiency anemia (Chronic) Depression (Chronic) Morbid obesity with BMI of 40.0-44.9, adult (Chronic) HLD (hyperlipidemia) (Chronic) Benign essential HTN (Chronic) Hospital Course and Treatment Imaging Results: Diagnostic Data Chest X-Ray 06/22/19 09:34 IMPRESSION: There has been improvement in the CHF. Mild residual changes persist. Blunting of the costophrenic angles bilaterally. Electronically Signed: Tristan De La Garza, at 12:39 EST , Service support , Lumbar Spine X-Ray 06/23/19 09:20 IMPRESSION: Degenerative changes of the spine, as detailed above. Electronically Signed: Tristan De La Garza, at 13:25 EST , Service support , KUB X-Ray 06/25/19 03:43 IMPRESSION: Possible localized ileus in the left upper quadrant versus early small bowel obstruction. Clinical correlation recommended. Electronically Signed: Nivia Thorpe MD at 5:57 EST , Service support , Dr. Ellison- Cardiology Operations: None, - - EGD Procedures: 2-D Echocardiogram Summary of Care Provided: The patient is a 63 year old F admitted 06/20/19 due to shortness of breath. 1. Acute on chronic systolic CHF/tach at suitable cardiomyopathy with acute hypoxic respiratory failure-chest x-ray on admission with CHF. Patient received IV Lasix. Echocardiogram demonstrated an EF of 20%. Oxygen now stable on room air. Continue carvedilol, losartan regimen. Follow-up with cardiology in 1 to 2 weeks. 2. Acute metabolic encephalopathy-resolved. Unclear etiology. Possibly secondary to #1 as well as prolonged QT. No evidence of infectious etiology. Patient now alert and oriented, appropriate mental status. 3. Prolonged QT-medication induced, improved. Sertraline, Haldol and Lyrica discontinued. 4. Abnormal troponin-suspect demand ischemia as a result of #1. 5. Hypertension-stable, continue current medication. 6. Type 2 diabetes mellitus-continue home insulin regimen. 7. Paroxysmal atrial fibrillation-not on anticoagulation. Continue carvedilol regimen. 8. CAD-nonobstructive, continue carvedilol, statin. 9. Hyperlipidemia-continue statin. 10. Fibromyalgia/chronic pain syndrome-continue gabapentin, PRN [place]. 11. [id number] Zoloft discontinued due to prolonged QT. Reevaluate as outpatient if patient needs to be restarted on additional medication for depression. 12. Chronic nausea-PRN Haldol discontinued. As needed Phenergan. General: Alert, Oriented x3, Cooperative, No apparent distress HEENT: Atraumatic, PERRLA, EOMI, Normocephalic Oral: Moist Mucosa Neck: Supple, Trachea Midline, Thyroid Normal Size and Texture Lungs: Clear to auscultation, No rhonchi, No wheeze, Diminished Cardiovascular: Regular rate, Regular Rhythm, Normal S1, Normal S2, No murmurs Abdomen: Bowel Sounds Present, Soft, Non Tender, Non-Distended, Obese Extremities: No clubbing, No cyanosis, Capillary Refill Less than 3 Seconds Skin: No rashes, No breakdown Musculoskeletal: No Tenderness to Palpation of Joints or Extremities Neurological: Cranial nerves II-XII grossly intact, Neuro grossly intact Psych/Mental Status: Normal Affect, Appropriate Patient seen and examined prior to discharge. Physical assessment as noted above. Patient is stable for discharge with follow up recommendations as noted above. This patient was seen by JONATAN Ley under the supervision of Dr. Copeland. - Physical Exam Vitals/I&O's: Vital Signs Temp Pulse Resp BP Pulse Ox 97.8 F 86 20 H 96/37 L 93 06/30/19 10:10 06/30/19 13:03 06/30/19 13:03 06/30/19 10:10 06/30/19 10:10 Oxygen Flow Rate (L/min) 3 Oxygen Delivery Method Room Air Weight: 270 lb 11.642 oz Body Mass Index (BMI) 46.5 Finger Stick Blood Glucose 480 Intake and Output for Last 24 Hours 06/28/19 06/29/19 06/30/19 23:59 23:59 23:59 Intake Total 530 / 530 900 / 900 120 / 120 Balance 530 / 530 900 / 900 120 / 120 Laboratory Results 06/26/19 06:09: Diff Path Review Reviewed 06/29/19 16:25: POC Glucose 112 H 06/29/19 22:08: POC Glucose 71 06/29/19 23:10: POC Glucose 84 06/30/19 07:42: POC Glucose 131 H 06/30/19 11:40: POC Glucose 147 H Current Medications Hydrocodone Bitart/Acetaminophen ([place] 5mg-325mg) 1 tablet PO Q6H PRN PRN PRN Reason: Pain Score 4-5/10 Last Admin: 06/30/19 08:41 Dose: 1 tablet Documented by: Albuterol/Ipratropium (Duoneb) 3 ml INHALATION Q6HWA.RT [facility] Last Admin: 06/30/19 13:03 Dose: 3 ml Documented by: Allopurinol (Zyloprim) 100 mg PO DAILY@2200 [facility] Last Admin: 06/29/19 22:16 Dose: 100 mg Documented by: Atorvastatin Calcium (Lipitor) 20 mg PO QHS [facility] Last Admin: 06/29/19 22:16 Dose: 20 mg Documented by: Carvedilol (Coreg) 12.5 mg PO BID [facility] Last Admin: 06/30/19 10:48 Dose: 12.5 mg Documented by: Dextrose (D50w Syringe) 0 gm IV X1 PRN; Protocol PRN Reason: Hypoglycemia Enoxaparin Sodium (Lovenox) 40 mg SC DAILY@1000 [facility] Last Admin: 06/30/19 10:47 Dose: 40 mg Documented by: Gabapentin (Neurontin) 200 mg PO TIDCM [facility] Last Admin: 06/30/19 11:43 Dose: 200 mg Documented by: Glucagon () 1 mg IM .X1 PRN PRN Reason: Hypoglycemia Guaifenesin (Mucinex) 1,200 mg PO BID [facility] Last Admin: 06/30/19 10:48 Dose: 1,200 mg Documented by: Hydroxychloroquine Sulfate (Plaquenil) 200 mg PO BIDCM [facility] Last Admin: 06/30/19 08:36 Dose: 200 mg Documented by: Insulin Human Lispro (Humalog Kwikpen (Bkc)) 0 unit SC ACHS [facility]; Protocol Last Admin: 06/30/19 11:42 Dose: Not Given Documented by: Insulin Human Regular (Humulin R U-500 (Bkc)) 35 units SC BREAKFAST [facility] Last Admin: 06/30/19 08:36 Dose: 35 units Documented by: Insulin Human Regular (Humulin R U-500 (Bkc)) 35 units SC DINNER [facility] Last Admin: 06/29/19 16:31 Dose: 35 units Documented by: Levothyroxine Sodium (Synthroid) 75 mcg PO DAILY@0600 [facility] Last Admin: 06/30/19 06:21 Dose: 75 mcg Documented by: Lidocaine (Lidoderm Patch) 1 patch TOPICAL DAILY [facility]; Protocol Last Admin: 06/30/19 10:45 Dose: 1 patch Documented by: Losartan Potassium (Cozaar) 50 mg PO BID [facility] Last Admin: 06/30/19 10:50 Dose: 50 mg Documented by: Montelukast Sodium (Singulair) 10 mg PO DAILY [facility] Last Admin: 06/30/19 10:49 Dose: 10 mg Documented by: Nutritional Formula (Lactose Free) (Glucerna Shake) 60 ml PO 4X/DAY [facility] Last Admin: 06/30/19 10:47 Dose: 60 ml Documented by: Nystatin (Mycostatin Powder) 1 applic TOPICAL BID PRN PRN; Protocol PRN Reason: rash Last Admin: 06/25/19 22:50 Dose: 1 applicatio Documented by: [facility] ([facility]) [facility] Last Admin: 06/30/19 08:35 Dose: 40 meq Documented by: Pramipexole Dihydrochloride (Mirapex) 0.5 mg PO QHS [facility] Last Admin: 06/29/19 22:16 Dose: 0.5 mg Documented by: Promethazine HCl (Phenergan Tablet) 12.5 mg PO Q6H PRN PRN PRN Reason: NAUSEA/VOMITING Last Admin: 06/30/19 06:23 Dose: 12.5 mg Documented by: Sertraline HCl (Zoloft) 25 mg PO DAILY [facility] Sodium Chloride () 10 - 40 ml IV UD PRN PRN Reason: SALINE FLUSH Last Admin: 06/29/19 20:35 Dose: 10 ml Documented by: Home Medications: Medications to take at Discharge Levothyroxine Sodium 75 mcg PO DAILY 09/17/18 Simvastatin 40 mg PO QHS 09/17/18 Hydroxychloroquine [Plaquenil] 200 mg PO BIDCM 11/30/18 Montelukast Sodium 10 mg PO DAILY 11/30/18 allopurinol 100 mg tablet 100 mg PO QHS tab 03/30/19 nystatin 100,000 unit/gram topical powder 1 applic TOPICAL BID PRN 03/30/19 Insulin Regular, Human [Humulin R U-500 Kwikpen] 35 unit SQ BREAKFAST 04/11/19 Insulin Regular, Human [Humulin R U-500 Kwikpen] 35 unit SQ DINNER 04/11/19 Carvedilol [Coreg (Beta Maria Teresa)] 12.5 mg PO BID tab 06/30/19 Gabapentin [Neurontin] 200 mg PO TIDCM cap 06/30/19 Hydrocodone/Acetaminophen [Hydrocodon-Acetaminophen 5-325] 1 ea PO Q6H PRN PRN 2 Days #6 tab 06/30/19 Losartan Potassium [Cozaar] 50 mg PO BID tab 06/30/19 Pramipexole Di-HCl [Mirapex] 0.5 mg PO QHS tab 06/30/19 proMETHazine tablet [Phenergan tablet] 12.5 mg PO Q6H PRN PRN tab 06/30/19 Following Prescrptions Were Given to Patient: Hydrocodone/Acetaminophen [Hydrocodon-Acetaminophen 5-325] 1 ea PO Q6H PRN PRN 2 Days #6 tab PRN Reason: Pain Score 6-10/10 Prescription Printed Primary Care Physician: Devan Parks MD [Primary Care Provider] - Please follow up with your Primary Care Physician in: 1 Week Please Follow Up With: Son Ellison MD When: 1-2 Weeks, may see [facility] SALESPERSON/PA Please Follow Up With: Son Ellison MD Disposition: [facility] facility Minutes spent on discharge:: 35 Patient Condition:: Stable Medical Necessity - Tobacco Use Smoking Status: Never smoker Meaningful Use Info Meaningful Use Diagnoses (Choose all that apply): CHF - CHF MARGARETH/ARB ordered at discharge?: Yes Documented LVEF (%): 20 <Ceasar Copeland F - Last Filed: 06/30/19 15:39> Discharge Date and Diagnosis - Secondary Discharge Diagnosis Chronic Problems (Last Updated 06/30/19 @ 13:15 by Ashli Baldwin NP-C) Fibromyalgia (Chronic) Type 2 diabetes mellitus (Chronic) 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) Diabetic gastroparesis (Chronic) GERD (gastroesophageal reflux disease) (Chronic) Seizure disorder (Chronic) Paroxysmal atrial fibrillation (Chronic) Chronic pain syndrome (Chronic) Takotsubo cardiomyopathy (Chronic) Iron deficiency anemia (Chronic) Depression (Chronic) Morbid obesity with BMI of 40.0-44.9, adult (Chronic) HLD (hyperlipidemia) (Chronic) Benign essential HTN (Chronic) Hospital Course and Treatment Summary of Care Provided: The patient is a 63 year old F [] - Physical Exam Vitals/I&O's: Vital Signs Temp Pulse Resp BP Pulse Ox 97.8 F 86 20 H 96/37 L 93 06/30/19 10:10 06/30/19 13:03 06/30/19 13:03 06/30/19 10:10 06/30/19 10:10 Oxygen Flow Rate (L/min) 3 Oxygen Delivery Method Room Air Weight: 270 lb 11.642 oz Body Mass Index (BMI) 46.5 Finger Stick Blood Glucose 480 Intake and Output for Last 24 Hours 06/28/19 06/29/19 06/30/19 23:59 23:59 23:59 Intake Total 530 / 530 900 / 900 120 / 120 Balance 530 / 530 900 / 900 120 / 120 Laboratory Results 06/26/19 06:09: Diff Path Review Reviewed 06/29/19 16:25: POC Glucose 112 H 06/29/19 22:08: POC Glucose 71 06/29/19 23:10: POC Glucose 84 06/30/19 07:42: POC Glucose 131 H 06/30/19 11:40: POC Glucose 147 H Code Visit Addendum: Dr. Copeland I personally examined the patient and reviewed the chart. I agree with the above. 63-year-old female with acute hypoxic respiratory failure in the setting of acute on chronic diastolic heart failure with pulmonary edema. She has been slowly having her Lasix decreased as an outpatient because of her renal function. And there is some concern that she was going flash pulmonary edema. It still appears that she has Takotsubo's cardiomyopathy, since she has had a cardiac cath fairly recently with normal coronary arteries as well as an echo in March with an EF of 55% and stage II diastolic dysfunction. Of note she also had a prolonged QT interval and had the majority of her QT prolonging medications discontinued including Lyrica, Zoloft, Haldol, Zofran. She came delirious during her stay and stopped taking all of her oral medications and had pulled out IVs and therefore we are unable to get her IV medications in her. Over the last 2 to 3 days, she has been steadily improving and today she was the clearest that nursing staff has seen her. She will need to follow-up with cardiology as an outpatient while [facility]. I would be very cautious in reinstituting SSRI therapy given her QT interval, she does seem to be stable without her SSRI at the moment. Inpatient E&M: 43237 Disch Hosp
--- NOTE | 2019-06-30 13:19 | CASEMGMT ---
Faxed orders to [facility]. Completed convalescent on HENS. SW spoke with patient and she said her sister would be here around 230 and she would probably leave here around . AJ called [facility] and let her know this information. AJ also let RN know this as well. Plan: d/c to [facility] under skilled level of care on a convalescent stay. Patient's sister transported her via private vehicle. Mckayla SNEED MSW
--- NOTE | 2019-06-30 14:04 | PHA.DC.MR ---
Pharmacy Service has performed discharge medication reconciliation for this patient. Home Medications Levothyroxine Sodium 75 mcg PO DAILY 09/17/18 Simvastatin 40 mg PO QHS 09/17/18 Hydroxychloroquine [Plaquenil] 200 mg PO BIDCM 11/30/18 Montelukast Sodium 10 mg PO DAILY 11/30/18 allopurinol 100 mg tablet 100 mg PO QHS tab 03/30/19 nystatin 100,000 unit/gram topical powder 1 applic TOPICAL BID PRN 03/30/19 Insulin Regular, Human [Humulin R U-500 Kwikpen] 35 unit SQ BREAKFAST 04/11/19 Insulin Regular, Human [Humulin R U-500 Kwikpen] 35 unit SQ DINNER 04/11/19 Carvedilol [Coreg (Beta Maria Teresa)] 12.5 mg PO BID tab 06/30/19 Gabapentin [Neurontin] 200 mg PO TIDCM cap 06/30/19 Hydrocodone/Acetaminophen [Hydrocodon-Acetaminophen 5-325] 1 ea PO Q6H PRN PRN 2 Days #6 tab 06/30/19 Losartan Potassium [Cozaar] 50 mg PO BID tab 06/30/19 Pramipexole Di-HCl [Mirapex] 0.5 mg PO QHS tab 06/30/19 proMETHazine tablet [Phenergan tablet] 12.5 mg PO Q6H PRN PRN tab 06/30/19 The patient's discharge medication list was reviewed for discrepancies and discrepancies were resolved.
== END 2019-06-30 14:35 | disposition skilled nursing facility (03) | DRG 291 ==
LOC: ED 21:59 → PCU 22:26
PROVIDERS: Family Medicine; Internal Medicine; Physician Assistant; Student in an Organized Health Care Education/Training Program; Admitting Provider Hospitalist; Emergency Provider Emergency Medicine; Family Provider Family Medicine; PCP Family Medicine; Referring Provider Hospitalist; Visit Provider Family Medicine
DX: I13.0 Hypertensive heart and chronic kidney disease with heart failure and stage 1 through stage 4 chronic kidney disease, or unspecified chronic kidney disease (principal); J96.01 Acute respiratory failure with hypoxia; G93.41 Metabolic encephalopathy; I50.23 Acute on chronic systolic (congestive) heart failure; I51.81 Takotsubo syndrome; Q23.1 Congenital insufficiency of aortic valve; K56.7 Ileus, unspecified; Z68.42 Body mass index [BMI] 45.0-49.9, adult; N39.0 Urinary tract infection, site not specified; E66.01 Morbid (severe) obesity due to excess calories; E78.5 Hyperlipidemia, unspecified; E87.6 Hypokalemia; M79.7 Fibromyalgia; I16.0 Hypertensive urgency; E11.43 Type 2 diabetes mellitus with diabetic autonomic (poly)neuropathy; K31.84 Gastroparesis; I25.10 Atherosclerotic heart disease of native coronary artery without angina pectoris; I48.0 Paroxysmal atrial fibrillation; F32.9 Major depressive disorder, single episode, unspecified; Z79.4 Long term (current) use of insulin; I25.2 Old myocardial infarction; G89.4 Chronic pain syndrome; K21.9 Gastro-esophageal reflux disease without esophagitis; N18.3 Chronic kidney disease, stage 3 (moderate); E11.22 Type 2 diabetes mellitus with diabetic chronic kidney disease
CPT/HCPCS: 36415; 36600; 71045; 71046; 72100; 74018; 80048; 81001; 82803; 82947; 82962; 83735; 83880; 84484; 85025; 93005; 93308; 94640; 97110; 97162; 97165; 97530; 97535; 97802; 97803; 99285; J7050; J7120; Q9957; A4216; C8924; J1940; J2405

== ENCOUNTER 2019-07-18 16:55 | Observation (INO) | payer MEDICARE, SELFPAY ==
[2019-06-20 22:48] VITALS: BMI 46.5
[2019-07-18] VITALS (13 sets, daily range): BP systolic 114–150; BP diastolic 51–92; PULSE 56–74; RESP 15–18; TEMP 36.4–36.8; O2SAT 92–100; BMI 42.3
--- NOTE | 2019-07-18 17:15 | RAD_ITS ---
STUDY: X-RAY CHEST REASON FOR EXAM: Female, 63 years old. Shortness of breath TECHNIQUE: Frontal view of the chest COMPARISON: 06/22/2019 FINDINGS: The lungs are clear. There are no pleural effusions. There is no pneumothorax. The heart is normal in size. The visualized osseous structures are within normal limits. RAD/Chest 1 View (Portable) IMPRESSION: No acute thoracic pathology. Electronically Signed: Devan Wang, at 18:05 EST Tel , Service support ,
[2019-07-18 17:43] LABS: Absolute Lymphocyte Count 2.47 X10^3/uL (0.83-4.51); Basophil# 0.09 X10^3/uL; Basophil% 0.8 % (0-1); Eosinophil# 0.32 X10^3/uL; Eosinophils% 2.7 % (0-5); Hematocrit 37.8 % (37-47); Hemoglobin 12.8 g/dL (12.0-15.0); Lymphocyte # 2.47 X10^3/ul (4.0); Lymphocyte % 20.8 % (19-41); Mean Corp Hgb Conc 33.9 g/dL (32-36); Mean Corpuscular Hgb 27.8 pg (27.0-32.0); Mean Platelet Vol. 9.9 fl (6.2-12.0); Monocyte# 0.92 X10^3/uL; Monocyte% 7.7 % (0-10); NRBC Flagged by Analyzer 0 % (0-5); Neutrophil # 8.04 X10^3/uL (2.7-7.7); Neutrophil % 67.6 % (47-70); Platelet Count 203 K/mm3 (150-450); RBC Distribution Width CV 13.2 % (11.6-14.6); RBC Distribution Width SD 39.3 fl (35.1-43.9); Red Blood Count 4.61 M/mm3 (4.2-5.4); White Blood Count 11.9 K/mm3 (4.4-11.0)
[2019-07-18 18:04] LABS: Anion Gap 9 (5-15); BUN 21 mg/dL (7-18); BUN/Creat Ratio 17.4 RATIO (10-20); Chloride 101 mmol/L (98-107); Creatinine, Serum 1.21 mg/dL (0.55-1.02); EST Glomerular Filtration Rate 48 mL/min (>60); Est Glom Filt Rate - Afr Amer 58 mL/min (>60); Estimated Creatinine Clearance 43.97 ml/min; Glucose 318 mg/dL (74-106); Potassium 4.2 mmol/L (3.5-5.1); Sodium Level 137 mmol/L (136-145)
[2019-07-18] MEDS: Ondansetron 4 MG/2 ML Vial IV (18:05)
[2019-07-18] MEDS: Aspirin 81 MG TAB.CHEW 324 MG PO (18:05)
[2019-07-18 18:10] LABS: BNP,B-Type NATRIURETIC PEPTIDE 135.1 pg/mL (0-100)
[2019-07-18] MEDS: Nitroglycerin SL (ED/IMG/CATH) 0.4 MG TABLET SUBLINGUAL (18:13)
[2019-07-18] MEDS: Nitroglycerin Oint 1 INCH PACKET TRANSDERM. ×2 (18:38→23:41)
--- NOTE | 2019-07-18 19:18 | PCM.HP.STD ---
Problem List (1) Takotsubo cardiomyopathy Status: Acute (2) History of type 1 diabetes mellitus Status: Chronic (3) Abdominal pain Status: Inactive (4) Acute respiratory failure with hypoxia Status: Inactive (5) CAP (community acquired pneumonia) Status: Inactive (6) Septic shock Status: Inactive (7) Flash pulmonary edema Status: Inactive (8) Noninfectious enteritis Status: Inactive (9) NSTEMI (non-ST elevated myocardial infarction) Status: Inactive (10) Hypoglycemia Status: Inactive (11) Severe sepsis Status: Inactive (12) Acute kidney injury Status: Inactive (13) Hypokalemia Status: Inactive (14) Hyponatremia Status: Inactive (15) Noninfective enterocolitis Status: Inactive (16) Fibromyalgia Status: Chronic (17) Congestive heart failure Status: Inactive Qualifiers: (18) Type 2 diabetes mellitus Status: Chronic (19) Old myocardial infarct Status: Chronic (20) Diabetic gastroparesis Status: Chronic (21) Weakness of both lower extremities Status: Inactive (22) GERD (gastroesophageal reflux disease) Status: Chronic Qualifiers: (23) Seizure disorder Status: Chronic (24) Paroxysmal atrial fibrillation Status: Chronic (25) Chronic pain syndrome Status: Chronic (26) Takotsubo cardiomyopathy Status: Acute (27) Iron deficiency anemia Status: Chronic Qualifiers: (28) Depression Status: Chronic Qualifiers: (29) Morbid obesity with BMI of 40.0-44.9, adult Status: Chronic (30) HLD (hyperlipidemia) Status: Chronic Qualifiers: Hyperlipidemia type: pure hypercholesterolemia Qualified Code(s): E78.00 - Pure hypercholesterolemia, unspecified; E78.0 - Pure hypercholesterolemia (31) Benign essential HTN Status: Chronic History of Present Illness Date of Admission: 07/18/19 Chief Complaint: malaise The patient is a 63 year old F with a history of diastolic heart failure NYHA class 2 and who had normal heart cath on catheterization on 03/09/2019; diabetes mellitus; rheumatoid arthritis presenting to the emergency department with malaise. Associated with symptoms is shortness of breath; nausea and vomiting. Further patient had some mild heaviness on her chest. Patient was discharged from senior living on the same day of presentation. She reports a fear of going into heart failure. EKG at the emergency department showed multiple flipped T waves in anterior and lateral leads. Emergency department doctor discussed the case with cardiology. Patient received Lasix x1 at the emergency department. She also received nitroglycerin tablets. Patient reported she had a headache with nitroglycerin tablets. Later on nitroglycerin paste was placed on her chest. Patient reported with Nitropaste on her chest she had no more headaches. Past Medical History Past Medical History (Chronic Problems): Chronic Problems (Last Reviewed 07/18/19 @ 21:15 by Jacques Santos MD) History of type 1 diabetes mellitus (Chronic) Fibromyalgia (Chronic) Type 2 diabetes mellitus (Chronic) 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) Diabetic gastroparesis (Chronic) GERD (gastroesophageal reflux disease) (Chronic) Seizure disorder (Chronic) Paroxysmal atrial fibrillation (Chronic) Chronic pain syndrome (Chronic) Iron deficiency anemia (Chronic) Depression (Chronic) Morbid obesity with BMI of 40.0-44.9, adult (Chronic) HLD (hyperlipidemia) (Chronic) Benign essential HTN (Chronic) Medical History: Medical History (Last Reviewed 07/18/19 @ 21:19 by Jacques Santos MD) Fibromyalgia (Chronic) M79.7 Congestive heart failure (Acute) I50.9 Type 2 diabetes mellitus (Chronic) E11.9 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) I25.2 GERD (gastroesophageal reflux disease) (Chronic) K21.9 Seizure disorder (Chronic) G40.909 Paroxysmal atrial fibrillation (Chronic) I48.0 Chronic pain syndrome (Chronic) G89.4 Takotsubo cardiomyopathy (Chronic) I51.81 Iron deficiency anemia (Chronic) D50.9 Depression (Chronic) F32.9 Morbid obesity with BMI of 40.0-44.9, adult (Chronic) E66.01, Z68.41 HLD (hyperlipidemia) (Chronic) E78.5 Benign essential HTN (Chronic) I10 Diabetic gastroparesis E11.43, K31.84 Diverticulitis K57.92 Fibromyalgia M79.7 QIAN (obstructive sleep apnea) G47.33 Restless leg syndrome G25.81 History of CVA (cerebrovascular accident) (Inactive) Z86.73 Allergies ciprofloxacin [From Cipro] Allergy (Verified 07/18/19 17:13) Shortness of breath ciprofloxacin HCl [From Cipro] Allergy (Verified 07/18/19 17:13) Shortness of breath cyclobenzaprine [From Flexeril] Allergy (Verified 07/18/19 17:13) Rash cyclobenzaprine HCl [From Flexeril] Allergy (Verified 07/18/19 17:13) Rash ketorolac tromethamine [From Toradol] Allergy (Verified 07/18/19 17:13) Chest tightness sulfamethoxazole [From Bactrim] Allergy (Verified 07/18/19 17:13) Itching trimethoprim [From Bactrim] Allergy (Verified 07/18/19 17:13) Itching metformin Adverse Reaction (Verified 07/18/19 17:13) Other headache valacyclovir HCl [From Valtrex] Adverse Reaction (Verified 07/18/19 17:13) Other Home Medications: Ambulatory Orders Medication Instructions Recorded Levothyroxine Sodium 75 mcg PO DAILY 09/17/18 Simvastatin 40 mg PO QHS 09/17/18 Hydroxychloroquine [Plaquenil] 200 mg PO BIDCM 11/30/18 Montelukast Sodium 10 mg PO DAILY 11/30/18 allopurinol 100 mg tablet 100 mg PO QHS tab 03/30/19 nystatin 100,000 unit/gram topical 1 applic TOPICAL BID PRN 03/30/19 powder Insulin Regular, Human [Humulin R 10 unit SQ BID 04/11/19 U-500 Kwikpen] Insulin Regular, Human [Humulin R 35 unit SQ BID 04/11/19 U-500 Kwikpen] Carvedilol [Coreg (Beta Maria Teresa)] 12.5 mg PO BID tab 06/30/19 Gabapentin [Neurontin] 200 mg PO TIDCM cap 06/30/19 Losartan Potassium [Cozaar] 50 mg PO BID tab 06/30/19 Pramipexole Di-HCl [Mirapex] 0.5 mg PO QHS tab 06/30/19 proMETHazine tablet [Phenergan 12.5 mg PO Q6H PRN PRN tab 06/30/19 tablet] Acetaminophen [Tylenol] 650 mg PO Q6H PRN PRN 07/18/19 Atorvastatin Calcium [Lipitor] 20 mg PO QHS 07/18/19 Bisacodyl 10 mg AK DAILY PRN PRN 07/18/19 Calcium Carbonate [Calcium] 1,000 mg PO TID PRN PRN 07/18/19 Glucagon,Human Recombinant 1 mg IJ PRN PRN 07/18/19 [Glucagon Emergency Kit] Hydrocodone/Acetaminophen 1 ea PO Q6H PRN PRN 07/18/19 [Hydrocodon-Acetaminophen 5-325] Lactobacillus Acidophilus 1 ea PO DAILY 07/18/19 [Acidophilus] Lactose-Reduced Food [Boost] 60 ml PO 4X/DAY 07/18/19 Magnesium Hydroxide [Milk Of 30 ml PO DAILY PRN PRN 07/18/19 Magnesia] Menthol [Biofreeze] 1 applic TP BID 07/18/19 Sodium Phosphate,[place]-Dibasic 133 ml [place] DAILY PRN PRN 07/18/19 [Enema Ready To Use] Surgical History: Surgical History (Last Reviewed 07/18/19 @ 21:09 by Jacuqes Santos MD) History of cholecystectomy Z90.49 History of knee surgery Z98.890 History of left heart catheterization Onset Date: 03/09/19 Z98.890 Surgical History: appendectomy, cholecystectomy Psychiatric History: Depression 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 Lives: With Family Smoking Status: Never smoker - *Family History Paternal Family History: Family History (Last Reviewed 07/18/19 @ 21:19 by Jacques Santos MD) Mother Myocardial infarction Father Congestive heart failure Other Diabetes Heart disease History Items: Heart Disease, - - Bone cancer Maternal Family History: Family History (Last Reviewed 07/18/19 @ 21:19 by Jacques Santos MD) Mother Myocardial infarction Father Congestive heart failure Other Diabetes Heart disease History Items: COPD, Diabetes, Heart Disease, - - Smoker Review of Systems Constitutional: Reports: Malaise, Weight Change - Patient reports losing about 5 pounds weight in 1 month.. Denies: Chills, Fever HEENT: Denies: Head Aches, Sinus Congestion, Sinus Drainage Cardiovascular: Reports: Heaviness, Orthopnea. Denies: Paroxysmal Noc. Dyspnea Respiratory: Reports: Shortness of Breath. Denies: Cough, Shortness of breath at rest, Sputum production Gastrointestinal: Reports: Nausea, Vomiting. Denies: Abdominal Pain Genitourinary: Denies: Dysuria Musculoskeletal: Denies: Joint Pain, Joint Tenderness Skin: Denies: Rash, Wounds Neurological: Denies: Numbness, Tingling, Focal weakness Psychiatric: Denies: Homicidal Ideations, Suicidal Ideations Hematologic/ Lymphatic: Denies: Easy Bruising, Easy Bleeding VTE Information - Inpt Only VTE Present on Admission: No VTE Mechan Device Prophylaxis: None VTE Pharm Prophylaxis ordered?: Yes Patient Problems: Active and Suspected Problems (Last Reviewed 07/18/19 @ 21:15 by Jacques Santos MD) Takotsubo cardiomyopathy (Acute) - Physical Exam Vitals/I&O's: Vital Signs Temp Pulse Resp BP Pulse Ox 97.5 F L 56 L 15 124/59 H 93 07/18/19 16:56 07/18/19 18:38 07/18/19 18:23 07/18/19 18:38 07/18/19 18:23 Oxygen Flow Rate (L/min) 2 Oxygen Delivery Method Nasal Cannula Weight: 118.841 kg Body Mass Index (BMI) 42.3 Finger Stick Blood Glucose 480 General: Alert, Oriented x3, Cooperative HEENT: Atraumatic, PERRLA, EOMI, Normocephalic Neck: Supple, No JVD, Negative Carotid Bruits Lungs: Clear to auscultation, Normal air movement Cardiovascular: Regular rate, Normal S1, Normal S2, No murmurs Abdomen: Bowel Sounds Present, Soft, Non Tender Extremities: No edema, Capillary Refill Less than 3 Seconds Skin: No rashes, No breakdown Musculoskeletal: No Tenderness to Palpation of Joints or Extremities Neurological: Cranial nerves II-XII grossly intact Psych/Mental Status: Normal Affect, Appropriate Laboratory Results 07/18/19 17:35: WBC 11.9 H, RBC 4.61, Hgb 12.8, Hct 37.8, MCV 82.0, MCH 27.8, MCHC 33.9, RDW Std Deviation 39.3, RDW Coeff of Be 13.2, Plt Count 203, MPV 9.9, Immature Gran % (Auto) 0.400, Neut % (Auto) 67.6, Lymph % (Auto) 20.8, [place] % (Auto) 7.7, Eos % (Auto) 2.7, Baso % (Auto) 0.8, Absolute Neuts (auto) 8.0 H, Absolute Lymphs (auto) 2.47, Nucleated RBC % 0 07/18/19 17:35: Sodium 137, Potassium 4.2, Chloride 101, Carbon Dioxide 27.0, Anion Gap 9, BUN 21 H, Creatinine 1.21 H, Estim Creat Clear Calc 43.97, Est GFR (MDRD) Af Amer 58 L, Est GFR (MDRD) Non-Af 48 L, BUN/Creatinine Ratio 17.4, Glucose 318 H, Calcium 9.0, Troponin I < 0.015 07/18/19 17:35: B-Natriuretic Peptide 135.1 H Current Medications Nitroglycerin (Nitrostat) 0.4 mg SUBLINGUAL Q5M PRN PRN Reason: Chest pain Last Admin: 07/18/19 18:13 Dose: 0.4 mg Documented by: Assessment/Plan All Active Problems (Last Reviewed 07/18/19 @ 21:15 by Jacques Santos MD) Takotsubo cardiomyopathy (Acute) Takotsubo cardiomyopathy (Acute) The patient is a 63 year old F with a history of diastolic heart failure NYHA class 2 and who had normal heart cath on catheterization on 03/09/2019; Takotsubo cardiomyopathy; diabetes mellitus; rheumatoid arthritis presenting to the emergency department with malaise; shortness of breath; nausea and vomiting; mild heaviness on her chest after being discharged from the senior living; was found to have a T wave inversion in lateral and anterior leads consistent with probable episode of Takotsubo cardiomyopathy. Probable recurrence of Takotsubo cardiomyopathy Place on a monitored bed at PCU CXR independently reviewed confirms no acute cardiopulmonary process. EKG independently reviewed confirms confirmed significant T wave inversion in anterior and lateral leads. This was significantly changed from EKG on June 27, 2019. Received aspirin 324 mg at the emergency department. ASA 81 mg p.o. daily Received nitroglycerin sublingual and Nitropaste at the emergency department. Nitropaste every 6 hours ordered. We will continue patient on same dose Lipitor that she takes at home. Received Lasix IV x1 at the emergency department. Serial cardiac enzymes Stat EKG as needed for chest pain Discussed the case with cardiology who recommended trending cardiac enzymes. Cardiology will follow patient. Coreg continued. Zofran as needed. Rheumatoid arthritis Plaquenil continued Diabetes mellitus On presentation her blood glucose was not within goal. Adjust home basal and prandial insulin. Add correction scale insulin. Accu-Chek q. ACH S and 2 AM with correction scale insulin. Fibromyalgia/chronic pain [place] PRN continued DVT prophylaxis Subcutaneous Lovenox Code Visit OBSV E&M: 36249 Initial observation care L3
[2019-07-18] MEDS: Furosemide 40 MG/4 ML Vial IV (19:24)
--- NOTE | 2019-07-18 19:48 | ED.VISSUMM ---
- ER Visit Summary Date of Service: 07/18/19 Chief Complaint: [Chest pain] History of Present Illness: The patient is a 63 F [presents to the emergency department complaint of chest discomfort that started 3 hours ago. Patient states that he was at last when she started feeling nauseated and vomited x1. Patient describes chest discomfort and heaviness. Patient states that she was just discharged from a senior living today. Patient currently lives with her granddaughter and stepson. Patient denies any radiation of the pain. He does feel somewhat short of breath. Patient feels like she might be going into congestive heart failure she states. 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 Patient has history of seizure disorder.] Physical Examination: [HEENT-PERRLA, EOMI. Cranial nerves II through XII grossly intact. TMs clear. Mucous membranes moist. No adenopathy. Cardiovascular-regular rate and rhythm without murmur or ectopy Lungs-clear to auscultation, chest wall stable without crepitus or subcu emphysema Abdomen-normoactive bowel sounds, soft, nontender, no rebound or rigidity, no peritoneal signs. Extremities-intact ?4, normal range of motion, normal pulses, atraumatic] Test Results: [EKG obtained on arrival showed diffuse T wave inversions in leads V2 through V6 as well as 1 and aVL. When compared with prior EKG from June 27, 2019 these are new changes. CBC with differential obtained showed a slightly elevated white count of 11.9, hemoglobin 12.8, hematocrit 38, platelets 203. Chemistries unremarkable. BUN was 24 and creatinine 1.21. Troponin is less than 1015. BNP was 135. Chest x-ray showed nothing acute.] Emergency Department Course and Treatment: [Patient given aspirin on arrival. Patient given sublingual nitroglycerin which dropped her blood pressure and so she had a Nitropaste placed in the anterior chest wall. Patient was given Lasix 40 mg IV. Was discussed with insurance claims examiner on-call Dr. Perfecto Haskins who is covering for Dr. Ellison. I was asked to admit patient for serial enzymes and diuresis. Suspect symptomatology related to tach Assubel syndrome. Patient had a essentially normal heart catheterization in February 2019.] Treatment Plan: [Admit] Disposition: [Admit] Impression: [Chest pain-rule out acute coronary syndrome ] This note was generated with [employer] dictation software. It may contain incorrect words, spelling, and punctuation that were not noted in review of the chart prior to signing ED Disposition - Plan for ED Patient: Referrals: Devan Parks MD [Primary Care Provider] -
--- NOTE | 2019-07-18 20:22 | EKG12_ITS ---
Test Reason : GEN ILLNESS Blood Pressure : / mmHG Vent. Rate : 066 BPM Atrial Rate : 066 BPM P-R Int : 152 ms QRS Dur : 090 ms QT Int : 502 ms P-R-T Axes : 001 -41 166 degrees QTc Int : 526 ms Normal sinus rhythm Left axis deviation ST & Marked T wave abnormality, consider anterolateral ischemia Prolonged QT Abnormal ECG Confirmed by ABIMAEL CURRY, CAROLE ([id number]), editor & co founder MAIKEL MULLEN ([id number]) on 07/20/2019 2:47:50 PM Referred By: Jacques Santos Confirmed By:CAROLE VARGHESE MD
[2019-07-18] MEDS: Carvedilol 12.5 MG Tablet PO (22:03)
[2019-07-18] MEDS: Losartan Potassium 50 MG Tablet PO (22:04)
[2019-07-18] MEDS: HYDROcodone Bitartrate/Apap 5/325 Tablet PO (22:07)
[2019-07-18] MEDS: Pramipexole Di-HCl 0.5 MG Tablet PO (22:07)
[2019-07-18] MEDS: Allopurinol 100 MG Tablet PO (22:07)
[2019-07-18] MEDS: Atorvastatin Calcium 20 MG Tablet PO (22:07)
[2019-07-18] MEDS: Insulin Lispro 100 UNIT/ML INSULN.PEN SC (22:16)
[2019-07-19] VITALS (7 sets, daily range): BP systolic 97–148; BP diastolic 50–88; PULSE 64–79; RESP 14–16; TEMP 36.4–36.9; O2SAT 88–97
[2019-07-19 00:41] LABS: Bedside Glucose 304 mg/dL (70-110)
[2019-07-19] MEDS: Insulin Lispro 100 UNIT/ML INSULN.PEN SC ×2 (03:06→09:12)
[2019-07-19 03:11] LABS: Bedside Glucose 360 mg/dL (70-110)
[2019-07-19] MEDS: Nitroglycerin Oint 1 INCH PACKET TRANSDERM. (05:04)
[2019-07-19] MEDS: Levothyroxine 75 MCG Tablet PO (05:05)
[2019-07-19] MEDS: HYDROcodone Bitartrate/Apap 5/325 Tablet PO ×2 (05:05→11:39)
[2019-07-19 05:29] LABS: Absolute Lymphocyte Count 2.19 X10^3/uL (0.83-4.51); Absolute Neutrophil Count 7.6 X10^3/uL (2.0-7.7); Basophil# 0.06 X10^3/uL; Basophil% 0.5 % (0-1); Eosinophil# 0.27 X10^3/uL; Eosinophils% 2.5 % (0-5); Hematocrit 35.6 % (37-47); Hemoglobin 11.6 g/dL (12.0-15.0); Lymphocyte # 2.19 X10^3/ul (4.0); Lymphocyte % 19.9 % (19-41); Mean Corp Hgb Conc 32.6 g/dL (32-36); Mean Corpuscular Volume 82.8 fL (81-99); Mean Platelet Vol. 10.4 fl (6.2-12.0); Monocyte# 0.87 X10^3/uL; Monocyte% 7.9 % (0-10); NRBC Flagged by Analyzer 0 % (0-5); Platelet Count 195 K/mm3 (150-450); RBC Distribution Width CV 13.6 % (11.6-14.6); RBC Distribution Width SD 40.8 fl (35.1-43.9)
[2019-07-19 08:21] LABS: Bedside Glucose 252 mg/dL (70-110)
--- NOTE | 2019-07-19 08:42 | CON.PCM_ITS ---
Reason for Consult Date of Consultation: 07/19/19 Reason for Consultation: Chest pain shortness of breath History of Present Illness: The patient is a 63 year old F with a history of nonobstructive coronary disease a previous diagnosis of Takotsubo cardiomyopathy from a cardiac catheterization in February 2019. She was recently admitted to the hospital with hypertensive urgency was noted to have T wave inversions and ruled out for myocardial infarction. She did have an episode of congestive heart failure and was treated appropriately. She was also noted to have prolonged QT intervals with T wave inversions repeat echocardiogram had demonstrated that her ejection fraction had declined. Medical therapy was instituted. She had a prolonged hospital stay for noncardiac issues. [facility] and presents back to the emergency room yesterday with atypical chest pain and shortness of breath. She says that she feels she is going to experience her heart failure symptoms again. She reported this to the emergency room physician. EKG done demonstrated the persistent T wave inversions which were not different from when she was being discharged. [] Past Medical History Allergies/Adverse Reactions: Allergies ciprofloxacin [From Cipro] Allergy (Verified 07/18/19 17:13) Shortness of breath ciprofloxacin HCl [From Cipro] Allergy (Verified 07/18/19 17:13) Shortness of breath cyclobenzaprine [From Flexeril] Allergy (Verified 07/18/19 17:13) Rash cyclobenzaprine HCl [From Flexeril] Allergy (Verified 07/18/19 17:13) Rash ketorolac tromethamine [From Toradol] Allergy (Verified 07/18/19 17:13) Chest tightness sulfamethoxazole [From Bactrim] Allergy (Verified 07/18/19 17:13) Itching trimethoprim [From Bactrim] Allergy (Verified 07/18/19 17:13) Itching metformin Adverse Reaction (Verified 07/18/19 17:13) Other headache valacyclovir HCl [From Valtrex] Adverse Reaction (Verified 07/18/19 17:13) Other Home Medications: Ambulatory Orders Medication Instructions Recorded Levothyroxine Sodium 75 mcg PO DAILY 09/17/18 Simvastatin 40 mg PO QHS 09/17/18 Hydroxychloroquine [Plaquenil] 200 mg PO BIDCM 11/30/18 Montelukast Sodium 10 mg PO DAILY 11/30/18 allopurinol 100 mg tablet 100 mg PO QHS tab 08/12/19 nystatin 100,000 unit/gram topical 1 applic TOPICAL BID PRN 03/30/19 powder Insulin Regular, Human [Humulin R 10 unit SQ BID 04/11/19 U-500 Kwikpen] Insulin Regular, Human [Humulin R 35 unit SQ BID 04/11/19 U-500 Kwikpen] Carvedilol [Coreg (Beta Maria Teresa)] 12.5 mg PO BID tab 06/30/19 Gabapentin [Neurontin] 200 mg PO TIDCM cap 06/30/19 Losartan Potassium [Cozaar] 50 mg PO BID tab 06/30/19 Pramipexole Di-HCl [Mirapex] 0.5 mg PO QHS tab 06/30/19 proMETHazine tablet [Phenergan 12.5 mg PO Q6H PRN PRN tab 06/30/19 tablet] Acetaminophen [Tylenol] 650 mg PO Q6H PRN PRN 07/18/19 Atorvastatin Calcium [Lipitor] 20 mg PO QHS 07/18/19 Bisacodyl 10 mg IN DAILY PRN PRN 07/18/19 Calcium Carbonate [Calcium] 1,000 mg PO TID PRN PRN 07/18/19 Glucagon,Human Recombinant 1 mg IJ PRN PRN 07/18/19 [Glucagon Emergency Kit] Hydrocodone/Acetaminophen 1 ea PO Q6H PRN PRN 07/18/19 [Hydrocodon-Acetaminophen 5-325] Lactobacillus Acidophilus 1 ea PO DAILY 07/18/19 [Acidophilus] Lactose-Reduced Food [Boost] 60 ml PO 4X/DAY 07/18/19 Magnesium Hydroxide [Milk Of 30 ml PO DAILY PRN PRN 07/18/19 Magnesia] Menthol [Biofreeze] 1 applic TP BID 07/18/19 Sodium Phosphate,[place]-Dibasic 133 ml IN DAILY PRN PRN 07/18/19 [Enema Ready To Use] Past Medical History (Chronic Problems): Chronic Problems (Last Reviewed 07/18/19 @ 21:19 by Jacques Santos MD) History of type 1 diabetes mellitus (Chronic) Fibromyalgia (Chronic) Type 2 diabetes mellitus (Chronic) 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) Diabetic gastroparesis (Chronic) GERD (gastroesophageal reflux disease) (Chronic) Seizure disorder (Chronic) Paroxysmal atrial fibrillation (Chronic) Chronic pain syndrome (Chronic) Iron deficiency anemia (Chronic) Depression (Chronic) Morbid obesity with BMI of 40.0-44.9, adult (Chronic) HLD (hyperlipidemia) (Chronic) Benign essential HTN (Chronic) Surgical History: appendectomy, cholecystectomy Psychiatric History: Depression 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 - *Family History Paternal Family History: Family History (Last Reviewed 07/18/19 @ 21:19 by Jacques Santos MD) Mother Myocardial infarction Father Congestive heart failure Other Diabetes Heart disease History Items: Heart Disease, - - Bone cancer Maternal Family History: Family History (Last Reviewed 07/18/19 @ 21:19 by Jacques Santos MD) Mother Myocardial infarction Father Congestive heart failure Other Diabetes Heart disease History Items: COPD, Diabetes, Heart Disease, - - Smoker Lives: With Family Smoking Status: Never smoker Alcohol: None Drugs: None Review of Systems - Review of Systems General: Denies: Fever, Night Sweats, Fatigue HEENT: Denies: Vision Change Cardiovascular: Reports: Chest Discomfort at Rest. Denies: Chest Discomfort, Shortness of Breath, Orthopnea, PND, Peripheral Edema, Palpitations, Lightheadedness, Dizziness, Near Syncope, Syncope Respiratory: Denies: Cough, Sputum Production, Hemoptysis Gastrointestinal: Denies: Hematemesis, Hematochezia, Melena Genitourinary: Denies: Dysuria, Hematuria Muscoloskeletal: Denies: Myalgias Skin: Denies: Rash Neurological: Denies: Dizziness Psychiatric: Denies: Anxiety Endocrine: Denies: Heat Intolerance Hematologic/ Lymphatic: Denies: Anemia Subjectve: Patient seen and evaluated. Objective: Vital Signs Temp Pulse Resp BP Pulse Ox 97.6 F L 72 14 97/50 L 95 07/19/19 08:00 07/19/19 08:00 07/19/19 08:00 07/19/19 08:00 07/19/19 08:00 Oxygen Flow Rate (L/min) 2 Oxygen Delivery Method Room Air Weight: 261 lb 14.546 oz Body Mass Index (BMI) 42.3 Finger Stick Blood Glucose 480 Intake and Output for Last 24 Hours 07/17/19 07/18/19 07/19/19 23:59 23:59 23:59 Intake Total 660 / 660 Output Total 750 / 750 Balance -90 / -90 General: Awake, Alert, Oriented x 3 HEENT: PERRL, EOMI, Sclera Non Icteric Neck: Supple, Good ROM, No Lymph Node Enlargement Lungs: Clear to auscultation Cardiovascular: Regular Rhythm, Normal S1, Normal S2, No Murmurs, No Rubs, No Gallops Vascular: No Carotid Bruits, Normal Femoral Pulses, Normal Radial Pulses, Normal Dorsalis Pedal Pulse, Normal Posterior Tibial Pulses Abdomen: Bowel Sounds Present, Soft, Non Tender, No HSM, No Organomegaly Extremities: No Cyanosis, No Clubbing, No edema Musculoskeletal: No Erythema Skin: No Rashes Lymphatic: No Lymph Node Enlargement Neurological: No Focal Motor or Sensory Deficit Psych/Mental Status: Appropriate 07/18/19 17:35: WBC 11.9 H, RBC 4.61, Hgb 12.8, Hct 37.8, MCV 82.0, MCH 27.8, MCHC 33.9, Plt Count 203, MPV 9.9, Immature Gran % (Auto) 0.400, Neut % (Auto) 67.6, Lymph % (Auto) 20.8, [place] % (Auto) 7.7, Eos % (Auto) 2.7, Baso % (Auto) 0.8, Absolute Neuts (auto) 8.0 H, Nucleated RBC % 0 07/18/19 17:35: Sodium 137, Potassium 4.2, Chloride 101, Carbon Dioxide 27.0, Anion Gap 9, BUN 21 H, Creatinine 1.21 H, Est GFR (MDRD) Af Amer 58 L, Est GFR (MDRD) Non-Af 48 L, BUN/Creatinine Ratio 17.4, Glucose 318 H, Calcium 9.0, Troponin I < 0.015 07/18/19 17:35: B-Natriuretic Peptide 135.1 H 07/18/19 20:53: Troponin I < 0.015 07/18/19 23:40: Troponin I < 0.015 07/19/19 05:05: WBC 11.0, RBC 4.30, Hgb 11.6 L, Hct 35.6 L, MCV 82.8, MCH 27.0, MCHC 32.6, Plt Count 195, MPV 10.4, Immature Gran % (Auto) 0.200, Neut % (Auto) 69.0, Lymph % (Auto) 19.9, [place] % (Auto) 7.9, Eos % (Auto) 2.5, Baso % (Auto) 0.5, Absolute Neuts (auto) 7.6, Nucleated RBC % 0 Rhythm: EKG: Normal sinus rhythm with anterior T wave inversions from V2 through V6 ECHO: Stress Test: Cardiac Cath: PCI: CT Surgery: Holter monitor: EPS: PPM: CXR: Chest CT Scan: Assessment/Plan 1. Atypical chest pain * Patient presents with atypical chest pain. Cardiac enzymes are thus far negative and EKG changes were concerning unchanged from her previous admission. My recommendation at this time would be to continue following her as an outpatient. I do not think that this is obstructive coronary in origin. * 2. Left ventricular dysfunction * Patient had a Takotsubo cardiomyopathy and has left ventricular dysfunction. The plan was to have her echocardiogram repeated as an outpatient. I do not think that she needs to be admitted for this. She will be discharged for outpatient follow-up. * * Thank you for allowing me to participate in the care of your patient. Please don't hesitate to call if any issues arise
[2019-07-19] MEDS: Insulin Lispro 100 UNIT/ML INSULN.PEN 20 UNIT SC (09:12)
[2019-07-19] MEDS: Gabapentin 100 MG Capsule 200 MG PO ×2 (09:12→12:55)
[2019-07-19] MEDS: Aspirin E.C. 81 MG Tablet PO (09:14)
[2019-07-19] MEDS: Hydroxychloroquine 200 MG Tablet PO (09:14)
[2019-07-19] MEDS: Montelukast 10 MG Tablet PO (09:15)
--- NOTE | 2019-07-19 09:24 | DCINST_ITS ---
- Discharge Diagnoses Current Active Problems: Current Active and Chronic Problems (Last Reviewed 07/18/19 @ 21:19 by Jacques Santos MD) Takotsubo cardiomyopathy (Acute) You will use the following diet at home:: Calorie/Carbohydrate Controlled (specify 1200, 1400, etc) - 1800 brain / day, Cardiac Your food should be the consistency of: Regular Your liquids should be the consistency of: Regular/Thin Discharge Activity: Return to Normal Activity Allergies/Adverse Reactions: Allergies ciprofloxacin [From Cipro] Allergy (Verified 07/18/19 17:13) Shortness of breath ciprofloxacin HCl [From Cipro] Allergy (Verified 07/18/19 17:13) Shortness of breath cyclobenzaprine [From Flexeril] Allergy (Verified 07/18/19 17:13) Rash cyclobenzaprine HCl [From Flexeril] Allergy (Verified 07/18/19 17:13) Rash ketorolac tromethamine [From Toradol] Allergy (Verified 07/18/19 17:13) Chest tightness sulfamethoxazole [From Bactrim] Allergy (Verified 07/18/19 17:13) Itching trimethoprim [From Bactrim] Allergy (Verified 07/18/19 17:13) Itching metformin Adverse Reaction (Verified 07/18/19 17:13) Other headache valacyclovir HCl [From Valtrex] Adverse Reaction (Verified 07/18/19 17:13) Other Medications to take at Discharge Levothyroxine Sodium 75 mcg PO DAILY 09/17/18 Simvastatin 40 mg PO QHS 09/17/18 Hydroxychloroquine [Plaquenil] 200 mg PO BIDCM 11/30/18 Montelukast Sodium 10 mg PO DAILY 11/30/18 allopurinol 100 mg tablet 100 mg PO QHS tab 03/30/19 nystatin 100,000 unit/gram topical powder 1 applic TOPICAL BID PRN 03/30/19 Insulin Regular, Human [Humulin R U-500 Kwikpen] 10 unit SQ BID 04/11/19 Insulin Regular, Human [Humulin R U-500 Kwikpen] 35 unit SQ BID 04/11/19 Carvedilol [Coreg (Beta Maria Teresa)] 12.5 mg PO BID tab 06/30/19 Gabapentin [Neurontin] 200 mg PO TIDCM cap 06/30/19 Losartan Potassium [Cozaar] 50 mg PO BID tab 06/30/19 Pramipexole Di-HCl [Mirapex] 0.5 mg PO QHS tab 06/30/19 proMETHazine tablet [Phenergan tablet] 12.5 mg PO Q6H PRN PRN tab 06/30/19 Acetaminophen [Tylenol] 650 mg PO Q6H PRN PRN 07/18/19 Atorvastatin Calcium [Lipitor] 20 mg PO QHS 07/18/19 Bisacodyl 10 mg [place] DAILY PRN PRN 07/18/19 Calcium Carbonate [Calcium] 1,000 mg PO TID PRN PRN 07/18/19 Glucagon,Human Recombinant [Glucagon Emergency Kit] 1 mg IJ PRN PRN 07/18/19 Hydrocodone/Acetaminophen [Hydrocodon-Acetaminophen 5-325] 1 ea PO Q6H PRN PRN 07/18/19 Lactobacillus Acidophilus [Acidophilus] 1 ea PO DAILY 07/18/19 Lactose-Reduced Food [Boost] 60 ml PO 4X/DAY 07/18/19 Magnesium Hydroxide [Milk Of Magnesia] 30 ml PO DAILY PRN PRN 07/18/19 Menthol [Biofreeze] 1 applic TP BID 07/18/19 Sodium Phosphate,[place]-Dibasic [Enema Ready To Use] 133 ml [place] DAILY PRN PRN 07/18/19 Primary Care Physician: Devan Parks MD [Primary Care Provider] - Please follow up with your Primary Care Physician in: 1-2 weeks Test Results: Test results from this visit will be discussed in further detail at your follow- up appointment, if applicable. Please Follow Up With: Perfecto Haskins MD
--- NOTE | 2019-07-19 11:27 | PCM.DC.SUM ---
<Davonte Hurley - Last Filed: 07/19/19 11:27> Discharge Date and Diagnosis - Problem List Patient Problems: Active and Suspected Problems (Last Reviewed 07/18/19 @ 21:19 by Jacques Santos MD) Takotsubo cardiomyopathy (Acute) Date of Admission: 07/18/19 Date of Discharge: 07/19/19 - Primary Discharge Diagnosis Active and Suspected Problems (Last Reviewed 07/18/19 @ 21:19 by Jacques Santos MD) Chest pain -atypical, musculoskeletal and anxiety mediated History of Takotsubo cardiomyopathy - Secondary Discharge Diagnosis Chronic Problems (Last Reviewed 07/18/19 @ 21:19 by Jacques Santos MD) History of type 1 diabetes mellitus (Chronic) Fibromyalgia (Chronic) Type 2 diabetes mellitus (Chronic) 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) Diabetic gastroparesis (Chronic) GERD (gastroesophageal reflux disease) (Chronic) Seizure disorder (Chronic) Paroxysmal atrial fibrillation (Chronic) Chronic pain syndrome (Chronic) Iron deficiency anemia (Chronic) Depression (Chronic) Morbid obesity with BMI of 40.0-44.9, adult (Chronic) HLD (hyperlipidemia) (Chronic) Benign essential HTN (Chronic) Hospital Course and Treatment Imaging Results: RAD/Chest 1 View (Portable) IMPRESSION: No acute thoracic pathology. Consultations: Cardiology-Divine Operations: None, - - EGD Procedures: None Summary of Care Provided: Hospital course: The patient is a 63 year old F with extensive past medical history as above who presented to the emergency room with complaints of chest pain. This was described as heaviness that began after being discharged from the [facility] on the day of presentation. Patient was found to have inverted T waves on EKG, however these were present on her EKG from her last admission. Troponin was negative, chest x-ray was negative. The ER contacted the technical administrative assistant and the patient was admitted to the PCU on telemetry. No events on telemetry. She had no further chest heaviness after admission. Her troponin was negative x3. Vital signs were stable. Cardiology recommended outpatient follow-up. The patient was discharged home in stable condition. She will need to follow-up with cardiology as directed and follow-up with her PCP in 1 to 2 weeks. This patient was seen by Davonte Hurley PA-C under the supervision of Doctor Damian. [] Patient Problems: Active and Suspected Problems (Last Reviewed 07/18/19 @ 21:19 by Jacques Santos MD) Takotsubo cardiomyopathy (Acute) - Physical Exam Vitals/I&O's: Vital Signs Temp Pulse Resp BP Pulse Ox 97.6 F L 72 14 97/50 L 95 07/19/19 08:00 07/19/19 08:00 07/19/19 08:00 07/19/19 08:00 07/19/19 08:00 Oxygen Flow Rate (L/min) 2 Oxygen Delivery Method Room Air Weight: 261 lb 14.546 oz Body Mass Index (BMI) 42.3 Finger Stick Blood Glucose 480 Intake and Output for Last 24 Hours 07/17/19 07/18/19 07/19/19 23:59 23:59 23:59 Intake Total 660 / 660 Output Total 750 / 750 Balance -90 / -90 General: Alert, Oriented x3, Cooperative HEENT: Atraumatic, PERRLA, EOMI, Normocephalic Neck: Supple, No JVD, Negative Carotid Bruits Lungs: Clear to auscultation, Normal air movement Cardiovascular: Regular rate, No murmurs Abdomen: Bowel Sounds Present, Soft, Non Tender, Obese Extremities: No edema, Capillary Refill Less than 3 Seconds Skin: No rashes, No breakdown Musculoskeletal: No Tenderness to Palpation of Joints or Extremities Neurological: Cranial nerves II-XII grossly intact Psych/Mental Status: Anxious, Alert and oriented to time, place, person, mood and affect Laboratory Results 07/18/19 17:35: WBC 11.9 H, RBC 4.61, Hgb 12.8, Hct 37.8, MCV 82.0, MCH 27.8, MCHC 33.9, RDW Std Deviation 39.3, RDW Coeff of Be 13.2, Plt Count 203, MPV 9.9, Immature Gran % (Auto) 0.400, Neut % (Auto) 67.6, Lymph % (Auto) 20.8, [place] % (Auto) 7.7, Eos % (Auto) 2.7, Baso % (Auto) 0.8, Absolute Neuts (auto) 8.0 H, Absolute Lymphs (auto) 2.47, Nucleated RBC % 0 07/18/19 17:35: Sodium 137, Potassium 4.2, Chloride 101, Carbon Dioxide 27.0, Anion Gap 9, BUN 21 H, Creatinine 1.21 H, Estim Creat Clear Calc 43.97, Est GFR (MDRD) Af Amer 58 L, Est GFR (MDRD) Non-Af 48 L, BUN/Creatinine Ratio 17.4, Glucose 318 H, Calcium 9.0, Troponin I < 0.015 07/18/19 17:35: B-Natriuretic Peptide 135.1 H 07/18/19 20:53: Troponin I < 0.015 07/18/19 22:01: POC Glucose 304 H 07/18/19 23:40: Troponin I < 0.015 07/19/19 03:02: POC Glucose 360 H 07/19/19 05:05: WBC 11.0, RBC 4.30, Hgb 11.6 L, Hct 35.6 L, MCV 82.8, MCH 27.0, MCHC 32.6, RDW Std Deviation 40.8, RDW Coeff of Be 13.6, Plt Count 195, MPV 10.4, Immature Gran % (Auto) 0.200, Neut % (Auto) 69.0, Lymph % (Auto) 19.9, Jasper % (Auto) 7.9, Eos % (Auto) 2.5, Baso % (Auto) 0.5, Absolute Neuts (auto) 7.6, Absolute Lymphs (auto) 2.19, Nucleated RBC % 0 07/19/19 08:05: POC Glucose 252 H Current Medications Acetaminophen (Tylenol) 650 mg PO Q6H PRN PRN PRN Reason: Pain Score 1-5/Temp > 100.7 F Hydrocodone Bitart/Acetaminophen ([place] 5mg-325mg) 1 tablet PO Q6H PRN PRN PRN Reason: Pain Score 6-10/10 Last Admin: 07/19/19 05:05 Dose: 1 tablet Documented by: Allopurinol (Zyloprim) 100 mg PO QHS [facility] Last Admin: 07/18/19 22:07 Dose: 100 mg Documented by: Aspirin (Ecotrin) 81 mg PO DAILY@0800 [facility] Last Admin: 07/19/19 09:14 Dose: 81 mg Documented by: Atorvastatin Calcium (Lipitor) 20 mg PO QHS [facility] Last Admin: 07/18/19 22:07 Dose: 20 mg Documented by: Bisacodyl (Dulcolax) 10 mg RECTAL DAILY PRN PRN PRN Reason: Constipation Calcium Carbonate (Tums) 1,000 mg PO TID PRN PRN PRN Reason: heartburn Calcium Carbonate (Tums) 500 mg PO Q6H PRN PRN PRN Reason: HEARTBURN Carvedilol (Coreg) 12.5 mg PO BID [facility] Last Admin: 07/19/19 09:14 Dose: Not Given Documented by: Dextrose (D50w Syringe) 0 gm IV X1 PRN; Protocol PRN Reason: Hypoglycemia Enoxaparin Sodium (Lovenox) 40 mg SC DAILY [facility] Last Admin: 07/19/19 09:15 Dose: Not Given Documented by: Gabapentin (Neurontin) 200 mg PO TIDCM [facility] Last Admin: 07/19/19 09:12 Dose: 200 mg Documented by: Glucagon () 1 mg IM .X1 PRN PRN Reason: Hypoglycemia Hydroxychloroquine Sulfate (Plaquenil) 200 mg PO BIDCM [facility] Last Admin: 07/19/19 09:14 Dose: 200 mg Documented by: Insulin Glargine (Lantus (Bkc)) 20 units [place] BREAKFAST [facility] Last Admin: 07/19/19 09:13 Dose: 20 u Documented by: Insulin Human Lispro (Humalog Kwikpen (Bkc)) 20 unit SC BREAKFAST [facility] Last Admin: 07/19/19 09:12 Dose: 20 u Documented by: Insulin Human Lispro (Humalog Kwikpen (Bkc)) 20 unit SC DINNER [facility] Insulin Human Lispro (Humalog Kwikpen (Bkc)) 20 unit SC LUNCH [facility] Insulin Human Lispro (Humalog Kwikpen (Bkc)) 0 unit SC 4X/DAYCM & 3AM [facility]; Protocol Last Admin: 07/19/19 09:12 Dose: 4 u Documented by: Levothyroxine Sodium (Synthroid) 75 mcg PO DAILY@0600 [facility] Last Admin: 07/19/19 05:05 Dose: 75 mcg Documented by: Losartan Potassium (Cozaar) 50 mg PO BID [facility] Last Admin: 07/19/19 09:15 Dose: Not Given Documented by: Magnesium Hydroxide (Milk Of Magnesia) 30 ml PO DAILY PRN PRN PRN Reason: Constipation Menthol ([place] Vanishing Scent) 1 applic TOPICAL BID [facility] Last Admin: 07/19/19 09:15 Dose: 1 applic Documented by: Montelukast Sodium (Singulair) 10 mg PO DAILY [facility] Last Admin: 07/19/19 09:15 Dose: 10 mg Documented by: Nitroglycerin (Nitrobid) 1 inch TRANSDERM. Q6 [facility] Last Admin: 07/19/19 05:04 Dose: 1 inch Documented by: Nutritional Formula (Lactose Free) (Ensure Enlive) 120 ml PO 4X/DAY [facility] Last Admin: 07/19/19 09:16 Dose: Not Given Documented by: Nystatin (Mycostatin Powder) 1 applic TOPICAL BID PRN; Protocol PRN Reason: rash Ondansetron HCl (Zofran) 4 mg IV Q8H PRN PRN PRN Reason: NAUSEA/VOMITING Pramipexole Dihydrochloride (Mirapex) 0.5 mg PO QHS [facility] Last Admin: 07/18/19 22:07 Dose: 0.5 mg Documented by: Sodium Chloride () 10 - 40 ml IV UD PRN PRN Reason: SALINE FLUSH Discharge Diet: Low fat/ Low Cholesterol, 1800 Calorie Control Diet, 2000 mg Sodium Diet Discharge Activity: Return to Normal Activity Home Medications: Medications to take at Discharge Levothyroxine Sodium 75 mcg PO DAILY 09/17/18 Simvastatin 40 mg PO QHS 09/17/18 Hydroxychloroquine [Plaquenil] 200 mg PO BIDCM 11/30/18 Montelukast Sodium 10 mg PO DAILY 11/30/18 allopurinol 100 mg tablet 100 mg PO QHS tab 03/30/19 nystatin 100,000 unit/gram topical powder 1 applic TOPICAL BID PRN 03/30/19 Insulin Regular, Human [Humulin R U-500 Kwikpen] 10 unit SQ BID 04/11/19 Insulin Regular, Human [Humulin R U-500 Kwikpen] 35 unit SQ BID 04/11/19 Carvedilol [Coreg (Beta Maria Teresa)] 12.5 mg PO BID tab 06/30/19 Gabapentin [Neurontin] 200 mg PO TIDCM cap 06/30/19 Losartan Potassium [Cozaar] 50 mg PO BID tab 06/30/19 Pramipexole Di-HCl [Mirapex] 0.5 mg PO QHS tab 06/30/19 proMETHazine tablet [Phenergan tablet] 12.5 mg PO Q6H PRN PRN tab 06/30/19 Acetaminophen [Tylenol] 650 mg PO Q6H PRN PRN 07/18/19 Atorvastatin Calcium [Lipitor] 20 mg PO QHS 07/18/19 Bisacodyl 10 mg [place] DAILY PRN PRN 07/18/19 Calcium Carbonate [Calcium] 1,000 mg PO TID PRN PRN 07/18/19 Glucagon,Human Recombinant [Glucagon Emergency Kit] 1 mg IJ PRN PRN 07/18/19 Hydrocodone/Acetaminophen [Hydrocodon-Acetaminophen 5-325] 1 ea PO Q6H PRN PRN 07/18/19 Lactobacillus Acidophilus [Acidophilus] 1 ea PO DAILY 07/18/19 Lactose-Reduced Food [Boost] 60 ml PO 4X/DAY 07/18/19 Magnesium Hydroxide [Milk Of Magnesia] 30 ml PO DAILY PRN PRN 07/18/19 Menthol [Biofreeze] 1 applic TP BID 07/18/19 Sodium Phosphate,[place]-Dibasic [Enema Ready To Use] 133 ml [place] DAILY PRN PRN 07/18/19 Primary Care Physician: Devan Parks MD [Primary Care Provider] - Please follow up with your Primary Care Physician in: 1-2 weeks Please Follow Up With: Perfecto Haskins MD When: as directed Disposition: Home Minutes spent on discharge:: 35 Patient Condition:: Stable Medical Necessity - Tobacco Use Smoking Status: Never smoker Meaningful Use Info Meaningful Use Diagnoses (Choose all that apply): None applicable <Henok Damian - Last Filed: 07/19/19 13:24> Discharge Date and Diagnosis - Primary Discharge Diagnosis Active and Suspected Problems (Last Reviewed 07/18/19 @ 21:19 by Jacques Santos MD) Takotsubo cardiomyopathy (Acute) - Secondary Discharge Diagnosis Chronic Problems (Last Reviewed 07/18/19 @ 21:19 by Jacques Santos MD) History of type 1 diabetes mellitus (Chronic) Fibromyalgia (Chronic) Type 2 diabetes mellitus (Chronic) 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) Diabetic gastroparesis (Chronic) GERD (gastroesophageal reflux disease) (Chronic) Seizure disorder (Chronic) Paroxysmal atrial fibrillation (Chronic) Chronic pain syndrome (Chronic) Iron deficiency anemia (Chronic) Depression (Chronic) Morbid obesity with BMI of 40.0-44.9, adult (Chronic) HLD (hyperlipidemia) (Chronic) Benign essential HTN (Chronic) Hospital Course and Treatment Summary of Care Provided: [] This patient was seen in conjunction with Davonte STEVENSON. I have independently interviewed and examined the patient and reviewed pertinent history, examination findings, laboratory and plan of management. I have reviewed the note and agree with the documented findings with the few additional points. In brief, The patient is a 63 year old F with history of Takotsubo cardiomyopathy and chronic heart failure and multiple recurrent admission since February 2019 was admitted for chest pain. Serial troponin was done and negative. EKG shows normal sinus rhythm with anterior T wave inversion from V2 to V6; no change from previous EKG. Patient was seen by technical administrative assistant. She did not had echo in March 2019 reported as EF 55% stage II diastolic dysfunction. LA mildly enlarged. Bicuspid aortic valve. No aortic stenosis or aortic insufficiency. Trivial TR. Patient will need outpatient echo follow-up.. Discharge medication reconciliation done. Discharge follow-up instructions completed. Discharge process discussed with the patient and all questions were answered to patient's satisfaction. I have discussed my assessment with Davonte STEVENSON and orders have been reviewed. Subjective: Seen and examined. Patient was admitted yesterday for chest pain. She reported generalized malaise and weakness and chest heaviness along with shortness of breath. With history of Takotsubo cardiomyopathy with last cath on February 2019 reported as normal coronaries, she decided to come to ER and get checked. Currently she does not have chest pain or shortness of breath. Discussed with technical administrative assistant. - Physical Exam Vitals/I&O's: Vital Signs Temp Pulse Resp BP Pulse Ox 97.6 F L 70 14 97/50 L 88 07/19/19 08:00 07/19/19 12:00 07/19/19 08:00 07/19/19 08:00 07/19/19 11:20 Oxygen Flow Rate (L/min) 2 Oxygen Delivery Method Room Air Weight: 261 lb 14.546 oz Body Mass Index (BMI) 42.3 Finger Stick Blood Glucose 480 Intake and Output for Last 24 Hours 07/17/19 07/18/19 07/19/19 23:59 23:59 23:59 Intake Total 660 / 660 Output Total 750 / 750 Balance -90 / -90 General: Alert, Oriented x3, Cooperative HEENT: Atraumatic, PERRLA, EOMI, Normocephalic Neck: Supple, No JVD, Negative Carotid Bruits Lungs: Clear to auscultation, Normal air movement, No rhonchi, No wheeze, No rales Cardiovascular: Regular rate, Regular Rhythm, Normal S1, Normal S2, No murmurs Abdomen: Bowel Sounds Present, Soft, Non Tender, Non-Distended, Obese Extremities: No edema, Capillary Refill Less than 3 Seconds Skin: No rashes, No breakdown Musculoskeletal: No Tenderness to Palpation of Joints or Extremities, Arthritic Changes Neurological: Cranial nerves II-XII grossly intact Psych/Mental Status: Normal Affect, Appropriate Laboratory Results 07/18/19 17:35: WBC 11.9 H, RBC 4.61, Hgb 12.8, Hct 37.8, MCV 82.0, MCH 27.8, MCHC 33.9, RDW Std Deviation 39.3, RDW Coeff of Be 13.2, Plt Count 203, MPV 9.9, Immature Gran % (Auto) 0.400, Neut % (Auto) 67.6, Lymph % (Auto) 20.8, [place] % (Auto) 7.7, Eos % (Auto) 2.7, Baso % (Auto) 0.8, Absolute Neuts (auto) 8.0 H, Absolute Lymphs (auto) 2.47, Nucleated RBC % 0 07/18/19 17:35: Sodium 137, Potassium 4.2, Chloride 101, Carbon Dioxide 27.0, Anion Gap 9, BUN 21 H, Creatinine 1.21 H, Estim Creat Clear Calc 43.97, Est GFR (MDRD) Af Amer 58 L, Est GFR (MDRD) Non-Af 48 L, BUN/Creatinine Ratio 17.4, Glucose 318 H, Calcium 9.0, Troponin I < 0.015 07/18/19 17:35: B-Natriuretic Peptide 135.1 H 07/18/19 20:53: Troponin I < 0.015 07/18/19 22:01: POC Glucose 304 H 07/18/19 23:40: Troponin I < 0.015 07/19/19 03:02: POC Glucose 360 H 07/19/19 05:05: WBC 11.0, RBC 4.30, Hgb 11.6 L, Hct 35.6 L, MCV 82.8, MCH 27.0, MCHC 32.6, RDW Std Deviation 40.8, RDW Coeff of Be 13.6, Plt Count 195, MPV 10.4, Immature Gran % (Auto) 0.200, Neut % (Auto) 69.0, Lymph % (Auto) 19.9, [place] % (Auto) 7.9, Eos % (Auto) 2.5, Baso % (Auto) 0.5, Absolute Neuts (auto) 7.6, Absolute Lymphs (auto) 2.19, Nucleated RBC % 0 07/19/19 08:05: POC Glucose 252 H 07/19/19 11:42: POC Glucose 229 H Current Medications Acetaminophen (Tylenol) 650 mg PO Q6H PRN PRN PRN Reason: Pain Score 1-5/Temp > 100.7 F Hydrocodone Bitart/Acetaminophen ([place] 5mg-325mg) 1 tablet PO Q6H PRN PRN PRN Reason: Pain Score 6-10/10 Last Admin: 07/19/19 11:39 Dose: 1 tablet Documented by: Allopurinol (Zyloprim) 100 mg PO QHS [facility] Last Admin: 07/18/19 22:07 Dose: 100 mg Documented by: Aspirin (Ecotrin) 81 mg PO DAILY@0800 [facility] Last Admin: 07/19/19 09:14 Dose: 81 mg Documented by: Atorvastatin Calcium (Lipitor) 20 mg PO QHS [facility] Last Admin: 07/18/19 22:07 Dose: 20 mg Documented by: Bisacodyl (Dulcolax) 10 mg RECTAL DAILY PRN PRN PRN Reason: Constipation Calcium Carbonate (Tums) 500 mg PO Q6H PRN PRN PRN Reason: HEARTBURN Carvedilol (Coreg) 12.5 mg PO BID [facility] Last Admin: 07/19/19 09:14 Dose: Not Given Documented by: Dextrose (D50w Syringe) 0 gm IV X1 PRN; Protocol PRN Reason: Hypoglycemia Enoxaparin Sodium (Lovenox) 40 mg SC DAILY [facility] Last Admin: 07/19/19 09:15 Dose: Not Given Documented by: Gabapentin (Neurontin) 200 mg PO TIDCM [facility] Last Admin: 07/19/19 12:55 Dose: 200 mg Documented by: Glucagon () 1 mg IM .X1 PRN PRN Reason: Hypoglycemia Hydroxychloroquine Sulfate (Plaquenil) 200 mg PO BIDCM [facility] Last Admin: 07/19/19 09:14 Dose: 200 mg Documented by: Insulin Glargine (Lantus (Bkc)) 20 units SC BREAKFAST [facility] Last Admin: 07/19/19 09:13 Dose: 20 u Documented by: Insulin Human Lispro (Humalog Kwikpen (Bkc)) 20 unit SC BREAKFAST [facility] Last Admin: 07/19/19 09:12 Dose: 20 u Documented by: Insulin Human Lispro (Humalog Kwikpen (Bkc)) 20 unit SC DINNER [facility] Insulin Human Lispro (Humalog Kwikpen (Bkc)) 20 unit SC LUNCH [facility] Last Admin: 07/19/19 12:55 Dose: Not Given Documented by: Insulin Human Lispro (Humalog Kwikpen (Bkc)) 0 unit SC 4X/DAYCM & 3AM [facility]; Protocol Last Admin: 07/19/19 12:55 Dose: Not Given Documented by: Levothyroxine Sodium (Synthroid) 75 mcg PO DAILY@0600 [facility] Last Admin: 07/19/19 05:05 Dose: 75 mcg Documented by: Losartan Potassium (Cozaar) 50 mg PO BID [facility] Last Admin: 07/19/19 09:15 Dose: Not Given Documented by: Magnesium Hydroxide (Milk Of Magnesia) 30 ml PO DAILY PRN PRN PRN Reason: Constipation Menthol (B[place] Vanishing Scent) 1 applic TOPICAL BID [facility] Last Admin: 07/19/19 09:15 Dose: 1 applic Documented by: Montelukast Sodium (Singulair) 10 mg PO DAILY [facility] Last Admin: 07/19/19 09:15 Dose: 10 mg Documented by: Nitroglycerin (Nitrobid) 1 inch TRANSDERM. Q6 [facility] Last Admin: 07/19/19 11:50 Dose: Not Given Documented by: Nutritional Formula (Lactose Free) (Glucerna Shake) 120 ml PO 4X/DAY [facility] Nystatin (Mycostatin Powder) 1 applic TOPICAL BID PRN; Protocol PRN Reason: rash Ondansetron HCl (Zofran) 4 mg IV Q8H PRN PRN PRN Reason: NAUSEA/VOMITING Last Admin: 07/19/19 12:53 Dose: 4 mg Documented by: Pramipexole Dihydrochloride (Mirapex) 0.5 mg PO QHS [facility] Last Admin: 07/18/19 22:07 Dose: 0.5 mg Documented by: Sodium Chloride () 10 - 40 ml IV UD PRN PRN Reason: SALINE FLUSH Meaningful Use Info Meaningful Use Diagnoses (Choose all that apply): None applicable Code Visit OBSV E&M: 93174 Observation care discharge
[2019-07-19 11:51] LABS: Bedside Glucose 229 mg/dL (70-110)
[2019-07-19] MEDS: Ondansetron 4 MG/2 ML Vial IV (12:53)
== END 2019-07-19 09:25 | disposition home or self-care (01) ==
LOC: ED 20:04 → PCU 20:31
PROVIDERS: Admitting Provider Hospitalist; Emergency Provider Emergency Medicine; Family Provider Family Medicine; PCP Family Medicine; Referring Provider Hospitalist; Visit Provider Internal Medicine
DX: I51.81 Takotsubo syndrome (principal); R07.89 Other chest pain; K21.9 Gastro-esophageal reflux disease without esophagitis; I25.2 Old myocardial infarction; M79.7 Fibromyalgia; E66.01 Morbid (severe) obesity due to excess calories; E78.5 Hyperlipidemia, unspecified; D50.9 Iron deficiency anemia, unspecified; G89.4 Chronic pain syndrome; G40.909 Epilepsy, unspecified, not intractable, without status epilepticus; E11.43 Type 2 diabetes mellitus with diabetic autonomic (poly)neuropathy; K31.84 Gastroparesis; F32.9 Major depressive disorder, single episode, unspecified; I11.0 Hypertensive heart disease with heart failure; I48.0 Paroxysmal atrial fibrillation; I48.20 Chronic atrial fibrillation, unspecified; I50.31 Acute diastolic (congestive) heart failure; G47.33 Obstructive sleep apnea (adult) (pediatric); G25.81 Restless legs syndrome; Z68.41 Body mass index [BMI] 40.0-44.9, adult; Z71.3 Dietary counseling and surveillance; Z79.899 Other long term (current) drug therapy; Z79.4 Long term (current) use of insulin; M06.9 Rheumatoid arthritis, unspecified
CPT/HCPCS: 36415; 71045; 80048; 82962; 83880; 84484; 85025; 93005; 96374; 96375; 96376; 97161; 97166; 97802; 99218; 99285; A4216; G0378; J1940; J2405

== ENCOUNTER 2019-08-06 18:01 | Emergency (ER) | payer MEDICARE, SELFPAY ==
[2019-07-18 20:14] VITALS: BMI 42.3
[2019-08-06 18:02] VITALS: BP 170/81; PULSE 100; RESP 22; TEMP 36.4; O2SAT 98; BMI 42.0
[2019-08-06] MEDS: HYDROmorphone 1 MG/ML Syringe IV (19:00)
[2019-08-06] MEDS: 0.9% Normal Saline 1,000 ML 1000 ML IV (19:01)
[2019-08-06] MEDS: Ondansetron 4 MG/2 ML Vial IV (19:01)
--- NOTE | 2019-08-06 19:06 | US_ITS ---
STUDY: VENOUS DOPPLER ULTRASOUND - LEFT LOWER EXTREMITY REASON FOR EXAM: Female, 63 years old. Pain TECHNIQUE: Ultrasound evaluation of the deep vein system to include villagomez-scale imaging and compression was performed. Villagomez-scale imaging and Doppler sonographic evaluation, including duplex spectral analysis and qualitative color flow sonography, was performed. COMPARISON: None. FINDINGS: Common Femoral Vein: Normal compression, spontaneity and augmentation. Normal color Doppler. Common Femoral Vein/Greater Saphenous Junction: Normal compression. Deep Femoral Vein: Not assessed Femoral Proximal: Normal compression, spontaneity and augmentation. Normal color Doppler. Femoral Middle: Normal compression, spontaneity and augmentation. Normal color Doppler. Femoral Distal: Normal compression. Popliteal Vein: Normal compression, spontaneity and augmentation. Normal color Doppler. Posterior Tibial Vein: Normal compression. Peroneal Vein: Normal compression. At the area of clinical concern there is a questionable anechoic lesion within the subcutaneous fat without internal vascularity No thrombosis identified. US/Venous Duplex Imag/Limited/Uni IMPRESSION: No evidence for deep venous thrombosis of the lower extremity. At the area of clinical concern there is a questionable anechoic well-circumscribed lesion within the subcutaneous fat without internal vascularity. Consider MRI for further evaluation as clinically indicated. Electronically Signed: Jason Manrique, at 19:49 EST Tel , Service support ,
[2019-08-06 19:08] LABS: Absolute Lymphocyte Count 1.58 X10^3/uL (0.83-4.51); Absolute Neutrophil Count 8.2 X10^3/uL (2.0-7.7); Basophil# 0.08 X10^3/uL; Basophil% 0.7 % (0-1); Eosinophil# 0.24 X10^3/uL; Eosinophils% 2.2 % (0-5); Hematocrit 38.7 % (37-47); Hemoglobin 12.7 g/dL (12.0-15.0); Lymphocyte # 1.58 X10^3/ul (4.0); Lymphocyte % 14.5 % (19-41); Mean Corp Hgb Conc 32.8 g/dL (32-36); Mean Corpuscular Hgb 27.3 pg (27.0-32.0); Mean Corpuscular Volume 83.2 fL (81-99); Mean Platelet Vol. 10.5 fl (6.2-12.0); Monocyte# 0.76 X10^3/uL; NRBC Flagged by Analyzer 0 % (0-5); Neutrophil # 8.18 X10^3/uL (2.7-7.7); Neutrophil % 75.3 % (47-70); Platelet Count 311 K/mm3 (150-450); RBC Distribution Width CV 14.3 % (11.6-14.6); RBC Distribution Width SD 43.3 fl (35.1-43.9); Red Blood Count 4.65 M/mm3 (4.2-5.4); White Blood Count 10.9 K/mm3 (4.4-11.0)
[2019-08-06 19:13] LABS: Anion Gap 5 (5-15); BUN 17 mg/dL (7-18); BUN/Creat Ratio 12.4 RATIO (10-20); Calcium,Total 9.5 mg/dL (8.5-10.1); Chloride 102 mmol/L (98-107); Creatinine, Serum 1.37 mg/dL (0.55-1.02); EST Glomerular Filtration Rate 41 mL/min (>60); Est Glom Filt Rate - Afr Amer 50 mL/min (>60); Estimated Creatinine Clearance 38.84 ml/min; Glucose 333 mg/dL (74-106); Potassium 4.3 mmol/L (3.5-5.1); Sodium Level 136 mmol/L (136-145)
--- NOTE | 2019-08-06 20:05 | ED.VISSUMM ---
- ER Visit Summary Date of Service: 08/06/19 Chief Complaint: [Left leg pain and right side pain] History of Present Illness: The patient is a 63 F [presents to the emergency department with symptoms for over 3 weeks. Patient has seen her primary care physician for these complaints 2 other times. Currently on morphine at home and has Drake for breakthrough pain. Patient states that she is had the pain in lateral aspect of her left leg however she denies weakness in the leg. She denies any change in bowel bladder function. She denies saddle anesthesia. She denies any trauma to the leg. Patient has an MRI scheduled for August 13 of her low back. She also has had some pain in her right side that she has had off-and-on for the last 3 weeks. She denies any nausea or vomiting. She denies any fevers. She denies any blood in her stool or black tarry stool.] Physical Examination: [HEENT-PERRLA, EOMI. Cranial nerves II through XII grossly intact. TMs clear. Mucous membranes moist. No adenopathy. Cardiovascular-regular rate and rhythm without murmur or ectopy Lungs-clear to auscultation, chest wall stable without crepitus or subcu emphysema Abdomen-normoactive bowel sounds, soft. Patient has tenderness palpation in the right upper quadrant that is mild. There is no rebound, rigidity, or peritoneal signs. Back exam-patient has no tenderness over the thoracic or lumbar spine. Patient has no tenderness over the lumbar paraspinal musculature. Deep tendon reflexes are plus 1 out of 4 bilaterally at the patella and Achilles. Patient has normal 5 extension. Patient has decreased sensation to light touch bilaterally although she has history of neuropathy in her feet. Extremities-intact ?4, normal range of motion, normal pulses, atraumatic. Left leg-patient has tenderness palpation over the lateral aspect of the left thigh. There is no ecchymosis or bruising noted. There is no edema noted. Patient has minimal discomfort with left leg raises.] Test Results: [CBC with it was normal. Chemistries unremarkable. Glucose was elevated at 333. Venous duplex of the left lower extremity was negative for DVT.] Emergency Department Course and Treatment: [She was medicated with Dilaudid 1 mg IV.] Treatment Plan: [I discussed with patient admission for pain control versus discharge to home and follow-up with MRI examination in 1 week. Patient does not want to be admitted at this time and would prefer to go home.] Etiology of her leg pain uncertain although cannot rule out radiculopathy versus meralgia paresthetica. I feel her abdominal pain is benign. Do not feel she has an exam consistent with a bowel obstruction. She has had prior appendectomy and cholecystectomy. Disposition: [Discharged home in stable condition] Impression: [Left leg pain-etiology uncertain] Abdominal pain-etiology uncertain This note was generated with [employer] dictation software. It may contain incorrect words, spelling, and punctuation that were not noted in review of the chart prior to signing ED Disposition - Plan for ED Patient: Referrals: Devan Parks MD [Primary Care Provider] -
--- NOTE | 2019-08-06 20:16 | ED.DEP ---
ED Disposition - Plan for ED Patient: Instructions: BACK PAIN w/ SCIATICA, ABDOMINAL PAIN, Unknown Cause, (Female) Referrals: Devan Parks MD [Primary Care Provider] - 5-7 Days
[2019-08-06 20:41] VITALS: BP 170/133; PULSE 86; RESP 18; O2SAT 96
== END 2019-08-06 20:42 | disposition home or self-care (01) ==
LOC: ED 18:41
PROVIDERS: Emergency Provider Emergency Medicine; Family Provider Family Medicine; PCP Family Medicine
DX: M79.605 Pain in left leg (principal); R10.11 Right upper quadrant pain; I11.0 Hypertensive heart disease with heart failure; I50.9 Heart failure, unspecified; E11.9 Type 2 diabetes mellitus without complications; K21.9 Gastro-esophageal reflux disease without esophagitis; G40.909 Epilepsy, unspecified, not intractable, without status epilepticus; Z79.899 Other long term (current) drug therapy; Z79.4 Long term (current) use of insulin
CPT/HCPCS: 80048; 85025; 93971; 96361; 96374; 96375; 99283; J7030; A4216; J2405

== ENCOUNTER 2019-08-11 22:08 | Emergency (ER) | payer MEDICARE, SELFPAY ==
[2019-08-11 22:09] VITALS: BP 171/109; PULSE 86; RESP 18; TEMP 36.8; O2SAT 95; BMI 42.3
--- NOTE | 2019-08-11 22:18 | RAD_ITS ---
STUDY: X-RAY CHEST REASON FOR EXAM: Female, 63 years old. INCREASING SHORTNESS OF BREATH, HX CHF TECHNIQUE: PA and lateral COMPARISON: 07/18/2019 FINDINGS: The lungs are clear and expanded. There is no demonstrated pleural abnormality. Normal size heart. Normal mediastinum and judith. Normal visualized pulmonary arteries. Normal visualized aortic arch and descending thoracic aorta. Normal visualized thoracic spine. Normal visualized ribs, clavicles, and shoulders. There is no demonstrated abnormality of the visualized soft tissue structures of the upper abdomen. RAD/Chest PA and Lateral IMPRESSION: Normal x-ray examination of the chest. Electronically Signed: Carlos Kohli MD at 23:18 EST , Service support ,
--- NOTE | 2019-08-11 22:36 | EKG12_ITS ---
Test Reason : SOB Blood Pressure : / mmHG Vent. Rate : 085 BPM Atrial Rate : 085 BPM P-R Int : 162 ms QRS Dur : 090 ms QT Int : 366 ms P-R-T Axes : 022 -34 074 degrees QTc Int : 435 ms Normal sinus rhythm Left axis deviation Nonspecific ST and T wave abnormality Abnormal ECG Confirmed by MOHAMUD CURRY, JED ([id number]), newspaper photo editor MAIKEL MULLEN ([id number]) on 08/14/2019 10:27:39 AM Referred By: CLARITA Confirmed By:JIMMY MALLORY MD
[2019-08-11 22:43] VITALS: O2SAT 95
[2019-08-11 22:54] VITALS: O2SAT 95
[2019-08-11] MEDS: HYDROmorphone 0.5 MG/0.5 ML SYRINGE IV (22:56)
[2019-08-11] MEDS: Ondansetron 4 MG/2 ML Vial IV (22:58)
[2019-08-11 23:20] LABS: Absolute Lymphocyte Count 1.82 X10^3/uL (0.83-4.51); Absolute Neutrophil Count 12.2 X10^3/uL (2.0-7.7); Basophil# 0.07 X10^3/uL; Basophil% 0.4 % (0-1); Eosinophil# 0.35 X10^3/uL; Eosinophils% 2.2 % (0-5); Hematocrit 37.3 % (37-47); Hemoglobin 12.5 g/dL (12.0-15.0); Lymphocyte # 1.82 X10^3/ul (4.0); Lymphocyte % 11.7 % (19-41); Mean Corp Hgb Conc 33.5 g/dL (32-36); Mean Corpuscular Hgb 27.7 pg (27.0-32.0); Mean Corpuscular Volume 82.7 fL (81-99); Monocyte# 1.07 X10^3/uL; Monocyte% 6.9 % (0-10); NRBC Flagged by Analyzer 0 % (0-5); Neutrophil # 12.23 X10^3/uL (2.7-7.7); Neutrophil % 78.4 % (47-70); Platelet Count 303 K/mm3 (150-450); RBC Distribution Width CV 13.9 % (11.6-14.6); RBC Distribution Width SD 41.2 fl (35.1-43.9); Red Blood Count 4.51 M/mm3 (4.2-5.4); White Blood Count 15.6 K/mm3 (4.4-11.0)
[2019-08-11 23:34] LABS: Anion Gap 4 (5-15); BUN 16 mg/dL (7-18); BUN/Creat Ratio 15.2 RATIO (10-20); Calcium,Total 9.2 mg/dL (8.5-10.1); Chloride 103 mmol/L (98-107); Creatinine, Serum 1.05 mg/dL (0.55-1.02); EST Glomerular Filtration Rate 56 mL/min (>60); Est Glom Filt Rate - Afr Amer 68 mL/min (>60); Estimated Creatinine Clearance 50.67 ml/min; Glucose 180 mg/dL (74-106); Potassium 4.2 mmol/L (3.5-5.1); Sodium Level 135 mmol/L (136-145)
[2019-08-11 23:56] LABS: BNP,B-Type NATRIURETIC PEPTIDE 560.9 pg/mL (0-100)
--- NOTE | 2019-08-12 00:14 | ED.DCSUM_ITS ---
- ER Visit Summary Date of Service: 08/12/19 Chief Complaint: Trouble breathing History of Present Illness: The patient is a 63 F with a history of CHF and others. Presents today with shortness of breath for 3 hours. Denies cough, chest pain, sputum, fevers. She does have some nausea and she has bilateral leg pain which is ongoing chronic issue which she attributes to a pinched nerve. She is awaiting MRI later this week. Physical Examination: Blood pressure 171/109. Otherwise vitals unremarkable. Afebrile. No acute distress. Alert and oriented. Lungs are clear. Heart is regular. Abdomen soft nontender. Lower extremities show trace and symmetric peripheral edema. Skin is normal otherwise. Neurovascular intact. Test Results: EKG showed sinus rhythm at a rate of [address] and T wave changes. Her EKG is actually improved. White count is 15.6. Patient has a history of leukocytosis. She does not have symptoms or signs of sepsis otherwise. Sodium 135, glucose 180 and creatinine 1.05. Troponin normal. BNP 560. Chest x-ray is normal. Emergency Department Course and Treatment: Patient was treated with pain medicine for her chronic leg pain. She also received Zofran. Patient has 3 hours of shortness of breath. She has a history of CHF. Her cardiac work-up was all fairly unremarkable, stable. BNP is slightly elevated at 560, this is not higher than it has been in the past. It is higher than it was a month ago. I suspect she may have some mild fluid retention, but she is not hypoxic. Her x-ray is clear and her exam does not show any significant edema. I believe she is appropriate for outpatient care for her symptoms, her CHF, and her leg pain. Patient received an additional dose of pain medicine as well as a dose of Lasix. She should follow-up with her PCP for recheck. Return for new or worsening issues. Treatment Plan: As above Disposition: Discharge Impression: 1. CHF 2. Nausea 3. Chronic bilateral leg pain This note was generated with [employer] software. It may contain incorrect words, spelling, and punctuation that were not noted in review of the chart prior to signing ED Disposition - Plan for ED Patient: Referrals: Devan Parks MD [Primary Care Provider] -
--- NOTE | 2019-08-12 00:18 | ED.DEP ---
ED Disposition - Plan for ED Patient: Instructions: CHF, General Referrals: Devan Parks MD [Primary Care Provider] -
[2019-08-12] MEDS: Furosemide 40 MG Tablet PO (00:32)
[2019-08-12] MEDS: HYDROmorphone 0.5 MG/0.5 ML SYRINGE IV (00:32)
[2019-08-12 00:35] VITALS: BP 185/86; PULSE 80; RESP 21; O2SAT 93
== END 2019-08-12 00:41 | disposition home or self-care (01) ==
LOC: ED 22:31
PROVIDERS: Emergency Provider Emergency Medicine; Family Provider Family Medicine; PCP Family Medicine
DX: I11.0 Hypertensive heart disease with heart failure (principal); I50.9 Heart failure, unspecified; R11.0 Nausea; M79.604 Pain in right leg; M79.605 Pain in left leg; G89.29 Other chronic pain; I25.2 Old myocardial infarction; K21.9 Gastro-esophageal reflux disease without esophagitis; E11.9 Type 2 diabetes mellitus without complications; E78.00 Pure hypercholesterolemia, unspecified; G40.909 Epilepsy, unspecified, not intractable, without status epilepticus; M79.7 Fibromyalgia; Z86.2 Personal history of diseases of the blood and blood-forming organs and certain disorders involving the immune mechanism; Z79.4 Long term (current) use of insulin; Z79.899 Other long term (current) drug therapy
CPT/HCPCS: 71046; 80048; 83880; 84484; 85025; 93005; 96374; 96375; 96376; 99285; A4216; J2405

== ENCOUNTER 2019-08-16 21:25 | Emergency (ER) | payer MEDICARE, SELFPAY ==
[2019-08-16 21:28] VITALS: BP 169/97; PULSE 76; RESP 16; TEMP 35.8; O2SAT 95; BMI 42.3
--- NOTE | 2019-08-17 00:04 | ED.VIS.GEN ---
History of Present Illness Chief Complaint: Lower Extremity Injury Informant: Patient Narrative: Presents with bilateral knee pain. She feels pain in her knees. Is been worsening over the last couple weeks. She is scheduled for an MRI in 2 days of her low back. They think it might be a pinched nerve. She has been using morphine and hydrocodone and had worsening pain tonight. No loss of bowel or bladder function. Comes in for further pain control. Fevers or chills. - Past Medical History (1) Takotsubo cardiomyopathy Status: Acute (2) Takotsubo cardiomyopathy Status: Acute (3) Benign essential HTN Status: Chronic (4) Chronic pain syndrome Status: Chronic (5) Depression Status: Chronic (6) Diabetic gastroparesis Status: Chronic (7) Fibromyalgia Status: Chronic (8) GERD (gastroesophageal reflux disease) Status: Chronic (9) HLD (hyperlipidemia) Status: Chronic (10) History of type 1 diabetes mellitus Status: Chronic (11) Iron deficiency anemia Status: Chronic (12) Morbid obesity with BMI of 40.0-44.9, adult Status: Chronic (13) Old myocardial infarct Status: Chronic (14) Paroxysmal atrial fibrillation Status: Chronic (15) Seizure disorder Status: Chronic (16) Type 2 diabetes mellitus Status: Chronic (17) Abdominal pain Status: Inactive (18) Acute kidney injury Status: Inactive (19) Acute respiratory failure with hypoxia Status: Inactive (20) CAP (community acquired pneumonia) Status: Inactive (21) Congestive heart failure Status: Inactive (22) Flash pulmonary edema Status: Inactive (23) Hypoglycemia Status: Inactive (24) Hypokalemia Status: Inactive (25) Hyponatremia Status: Inactive (26) NSTEMI (non-ST elevated myocardial infarction) Status: Inactive (27) Noninfectious enteritis Status: Inactive (28) Noninfective enterocolitis Status: Inactive (29) Septic shock Status: Inactive (30) Severe sepsis Status: Inactive (31) Weakness of both lower extremities Status: Inactive Past Medical History - Allergies and Home Meds Allergies/Adverse Reactions: Allergies ciprofloxacin [From Cipro] Allergy (Verified 08/16/19 21:28) Shortness of breath ciprofloxacin HCl [From Cipro] Allergy (Verified 08/16/19 21:28) Shortness of breath cyclobenzaprine [From Flexeril] Allergy (Verified 08/16/19 21:28) Rash cyclobenzaprine HCl [From Flexeril] Allergy (Verified 08/16/19 21:28) Rash ketorolac tromethamine [From Toradol] Allergy (Verified 08/16/19 21:28) Chest tightness sulfamethoxazole [From Bactrim] Allergy (Verified 08/16/19 21:28) Itching trimethoprim [From Bactrim] Allergy (Verified 08/16/19 21:28) Itching metformin Adverse Reaction (Verified 08/16/19 21:28) Other headache valacyclovir HCl [From Valtrex] Adverse Reaction (Verified 08/16/19 21:28) Other Primary Care Physician: Devan Parks MD [Primary Care Provider] - Prior records reviewed: Yes Past Medical History: - - See problem list Surgical History: appendectomy, cholecystectomy Lives: With Family Smoking Status: Never smoker Alcohol: None Drugs: None - Family History Paternal Family History: Family History (Last Reviewed 07/18/19 @ 21:19 by Jacques aSntos MD) Mother Myocardial infarction Father Congestive heart failure Other Diabetes Heart disease Family History: Reports: Heart Disease, - - Bone cancer Maternal Family History: Family History (Last Reviewed 07/18/19 @ 21:19 by Jacques Santos MD) Mother Myocardial infarction Father Congestive heart failure Other Diabetes Heart disease Family History: Reports: COPD, Diabetes, Heart Disease, - - Smoker Review of Systems General: Denies: Chills, Fever, Sweats Eyes: Denies: Visual changes - bilaterally, Diplopia ENT: Denies: Rhinorrhea, Sore throat Cardiovascular: Denies: Chest pain, Palpitations Respiratory: Denies: Dyspnea, Cough, Dyspnea on exertion Gastrointestinal: Denies: Abdominal pain, Nausea, Vomiting, Diarrhea, Melena, Hematochezia Genitourinary: Denies: Dysuria, Hematuria, Frequency Musculoskeletal: Reports: Extremity Pain. Denies: Back pain Skin: Denies: Rash, Wounds Neurological: Denies: Headache, Weakness, Numbness Physical Exam Vital Signs/Narrative: Vital Signs Temp Pulse Resp BP Pulse Ox 08/16/19 21:28 96.5 F L 76 16 169/97 H 95 General: Well nourished, Well developed, No Acute Distress Head: Normocephalic, Atraumatic Eyes: Perrl, EOMI ENT: Moist mucous membranes, No rhinorrhea Neck: Supple, Nontender Cardiovascular: Regular rate, Regular rhythm, No murmurs Respiratory: No distress, CTA bilaterally, Chest nontender Abdomen: Soft, Nontender, Nondistended, Normal bowel sounds Back: Nontender, Normal Inspection Extremities: No edema, Tenderness - Tenderness in the bilateral knees and medial right thigh without swelling or deformity. Negative for: Nontender Skin: Normal color, No rash Neurological: Alert, Oriented x3, Cranial nerves II-XII grossly intact, Normal Strength, Normal Sensation Psychological: Normal affect, Normal Mood Diagnostic/Tx/Re-eval - Medical Decision Making Given injection of Dilaudid intramuscular. At this time I do not feel she needs repeat imaging. She will follow-up as an outpatient ED Disposition - Plan for ED Patient: Disposition: Home or Assisted Living Diagnosis: Lower extremity pain Instructions: Causes of Lumbar (Low Back) Pain Referrals: Devan Parks MD [Primary Care Provider] -
[2019-08-17] MEDS: HYDROmorphone 1 MG/ML Syringe IM (00:38)
[2019-08-17] MEDS: Ondansetron ODT 4 MG Tablet PO (00:46)
[2019-08-17 01:06] VITALS: BP 168/81; PULSE 67; RESP 17; O2SAT 95
== END 2019-08-17 01:08 | disposition home or self-care (01) ==
PROVIDERS: Emergency Provider Emergency Medicine; Family Provider Family Medicine; PCP Family Medicine
DX: M25.561 Pain in right knee (principal); M25.562 Pain in left knee; G89.4 Chronic pain syndrome; I51.81 Takotsubo syndrome; G40.909 Epilepsy, unspecified, not intractable, without status epilepticus; E11.9 Type 2 diabetes mellitus without complications; E78.5 Hyperlipidemia, unspecified; I48.0 Paroxysmal atrial fibrillation; M79.7 Fibromyalgia; K21.9 Gastro-esophageal reflux disease without esophagitis; F32.9 Major depressive disorder, single episode, unspecified; E66.01 Morbid (severe) obesity due to excess calories; Z68.41 Body mass index [BMI] 40.0-44.9, adult; Z79.82 Long term (current) use of aspirin; Z79.4 Long term (current) use of insulin; Z79.899 Other long term (current) drug therapy; Z88.2 Allergy status to sulfonamides; Z88.1 Allergy status to other antibiotic agents; Z90.49 Acquired absence of other specified parts of digestive tract; I25.2 Old myocardial infarction
CPT/HCPCS: 99283

== ENCOUNTER 2019-08-20 18:22 | Emergency (ER) | payer MEDICARE, OTHER, SELFPAY ==
[2019-08-20 18:23] VITALS: BP 159/121; PULSE 98; RESP 16; TEMP 36.2; O2SAT 97; BMI 42.3
--- NOTE | 2019-08-20 19:10 | EKG12_ITS ---
Test Reason : AM EKG Blood Pressure : / mmHG Vent. Rate : 069 BPM Atrial Rate : 069 BPM P-R Int : 154 ms QRS Dur : 094 ms QT Int : 406 ms P-R-T Axes : 032 -43 -51 degrees QTc Int : 435 ms Normal sinus rhythm Left axis deviation T wave abnormality, consider anterolateral ischemia Abnormal ECG Confirmed by JOSE MANUEL CURRY, SHAHIDA ([id number]), city editor MAIKEL MULLEN ([id number]) on 08/26/2019 11:39:38 AM Referred By: ELKE Confirmed By:SHAHIDA RICHARD MD
[2019-08-20] MEDS: Haloperidol Lactate 5 MG/ML Vial 1 MG IV (19:20)
[2019-08-20 19:24] VITALS: BP 185/73; PULSE 82; RESP 16; O2SAT 94
[2019-08-20 19:40] LABS: Absolute Lymphocyte Count 1.71 X10^3/uL (0.83-4.51); Absolute Neutrophil Count 12.7 X10^3/uL (2.0-7.7); Basophil# 0.06 X10^3/uL; Basophil% 0.4 % (0-1); Eosinophils% 1.3 % (0-5); Hematocrit 40.3 % (37-47); Hemoglobin 13.3 g/dL (12.0-15.0); Lymphocyte # 1.71 X10^3/ul (4.0); Lymphocyte % 10.8 % (19-41); Mean Corpuscular Hgb 27.5 pg (27.0-32.0); Mean Corpuscular Volume 83.4 fL (81-99); Mean Platelet Vol. 10.9 fl (6.2-12.0); Monocyte# 1.11 X10^3/uL; NRBC Flagged by Analyzer 0 % (0-5); Neutrophil # 12.68 X10^3/uL (2.7-7.7); Neutrophil % 80.1 % (47-70); Platelet Count 313 K/mm3 (150-450); RBC Distribution Width CV 14.1 % (11.6-14.6); RBC Distribution Width SD 42.5 fl (35.1-43.9); Red Blood Count 4.83 M/mm3 (4.2-5.4); White Blood Count 15.8 K/mm3 (4.4-11.0)
[2019-08-20 19:46] LABS: Bacteria 0 SEEN /hpf (None Seen); Mucous, Urine 0 SEEN /hpf (<or=2+); Red Blood Cells-Urine 0 SEEN /hpf (0-5)
[2019-08-20 19:48] LABS: Color, Urine Yellow (Yellow); Glucose, Dipstick 1000 mg/dl (Normal); Ketone-Dipstick 5 mg/dl (Negative); Leukocyte Esterase-Dipstick Negative /ul (Negative); Nitrite-Dipstick Negative (Negative); Occult Blood-Urine 25 /ul (Negative); Protein-Dipstick 30 mg/dl (Negative); Urine Bilirubin Dipstick Negative (Negative); Urine Clarity Sl. Cloudy (Clear); Urine Urobilinogen Normal (Normal)
[2019-08-20 19:49] LABS: ALB/GLOB Ratio 0.7 RATIO (0.9-2.4); AST(SGOT) 12 U/L (15-37); Alanine Aminotransfer ALT/SGPT 14 U/L (13-56); Albumin, Serum 3.5 g/dL (3.2-5.0); Alkaline Phosphatase 180 U/L (45-117); Anion Gap 8 (5-15); BUN 16 mg/dL (7-18); BUN/Creat Ratio 14.4 RATIO (10-20); Calcium,Total 9.8 mg/dL (8.5-10.1); Chloride 102 mmol/L (98-107); Creatinine, Serum 1.11 mg/dL (0.55-1.02); EST Glomerular Filtration Rate 52 mL/min (>60); Est Glom Filt Rate - Afr Amer 63 mL/min (>60); Estimated Creatinine Clearance 47.93 ml/min; Globulin 4.7 g/dL (2.2-4.2); Glucose 289 mg/dL (74-106); Lipase 83 U/L (73-393); Protein, Total 8.2 g/dL (6.4-8.2); Sodium Level 135 mmol/L (136-145)
--- NOTE | 2019-08-20 19:52 | ED.DCSUM_ITS ---
History of Present Illness Chief Complaint: Nausea/Vomiting Informant: Patient - Abdominal Pain/Flank Pain Onset: Today - Nausea/Vomiting/Emesis GI Symptom: Nausea, Vomiting Onset: Today Quality: Nonbilious. Negative for: Blood streaks, Coffee ground, Hematemesis - Diarrhea/Melena/Hematochezia GI Symptom: Negative for: Diarrhea, Melena Associated Symptoms: Negative for: Dysuria, Frequency Narrative: Patient is a 63-year-old female with history of gastroparesis and possibly cyclic vomiting syndrome presenting with vomiting. Patient states she had 5 episodes of vomiting today. It woke her up from sleep this morning. She denies any associated abdominal pain. She states the vomit has been normal color and denies any blood or coffee-ground substance. She has had normal bowel movements. Patient denies any urinary symptoms. She notes that she was recently hospitalized at [facility] earlier this week for pinched nerve in her back. She was discharged after 24 hours. She states she had an MRI at that time. She notes her last episode of vomiting was 5 days ago. She states she normally takes oral Haldol as needed to help with her symptoms however she could not keep it down today. She denies any change in her classic gastroparesis symptoms. She denies any other complaints at this time. Past Medical History - Allergies and Home Meds Allergies/Adverse Reactions: Allergies ciprofloxacin [From Cipro] Allergy (Verified 08/20/19 18:38) Shortness of breath ciprofloxacin HCl [From Cipro] Allergy (Verified 08/20/19 18:38) Shortness of breath cyclobenzaprine [From Flexeril] Allergy (Verified 08/20/19 18:38) Rash cyclobenzaprine HCl [From Flexeril] Allergy (Verified 08/20/19 18:38) Rash ketorolac tromethamine [From Toradol] Allergy (Verified 08/20/19 18:38) Chest tightness sulfamethoxazole [From Bactrim] Allergy (Verified 08/20/19 18:38) Itching trimethoprim [From Bactrim] Allergy (Verified 08/20/19 18:38) Itching metformin Adverse Reaction (Verified 08/20/19 18:38) Other headache valacyclovir HCl [From Valtrex] Adverse Reaction (Verified 08/20/19 18:38) Other Primary Care Physician: Devan Parks MD [Primary Care Provider] - Past Medical History: - - Chronic back pain, hypertension, diabetes mellitus type 1, gastroparesis Surgical History: appendectomy, cholecystectomy Smoking Status: Never smoker - Family History Paternal Family History: Family History (Last Reviewed 07/18/19 @ 21:19 by Jacques Satnos MD) Mother Myocardial infarction Father Congestive heart failure Other Diabetes Heart disease Family History: Reports: Heart Disease, - - Bone cancer Maternal Family History: Family History (Last Reviewed 07/18/19 @ 21:19 by Jacques Santos MD) Mother Myocardial infarction Father Congestive heart failure Other Diabetes Heart disease Family History: Reports: COPD, Diabetes, Heart Disease, - - Smoker Review of Systems General: Denies: Chills, Fever, Sweats Eyes: Denies: Visual changes - bilaterally, Diplopia ENT: Denies: Rhinorrhea, Sore throat Cardiovascular: Denies: Chest pain, Palpitations Respiratory: Denies: Dyspnea, Cough, Dyspnea on exertion Gastrointestinal: Reports: Nausea, Vomiting. Denies: Abdominal pain, Diarrhea, Melena, Hematochezia Genitourinary: Denies: Dysuria, Hematuria, Frequency Musculoskeletal: Reports: Back pain. Denies: Extremity Pain Skin: Denies: Rash, Wounds Neurological: Denies: Headache, Weakness, Numbness Physical Exam Vital Signs/Narrative: Vital Signs Temp Pulse Resp BP Pulse Ox 08/20/19 19:24 82 16 185/73 H 94 08/20/19 18:23 97.1 F L 98 16 159/121 H 97 Inital Vital Signs reviewed: Yes General: Well nourished, Well developed, No Acute Distress Head: Normocephalic, Atraumatic Eyes: Perrl, EOMI ENT: Moist mucous membranes, No rhinorrhea Neck: Supple, Nontender, No JVD Cardiovascular: Regular rate, Regular rhythm, No murmurs Respiratory: No distress, CTA bilaterally, Chest nontender. Negative for: Rales, Rhonchi, Wheezing Abdomen: Soft, Nontender, Nondistended, Normal bowel sounds. Negative for: Guarding, Rebound tenderness Back: Nontender, Normal Inspection, - - Lower lumbar paraspinal tenderness to palpation on the left. Negative for: CVA tenderness, Spinal tenderness Extremities: Nontender, No edema Skin: Normal color, No rash Neurological: Alert, Oriented x3, Cranial nerves II-XII grossly intact, Normal S trength, Normal Sensation Psychological: Normal affect, Normal Mood Diagnostic/Tx/Re-eval Chest X-Ray - ED: 1 View, Read by ED Physician, Read by Radiologist, No Acute Disease Clinical Impression(s) from Imaging Studies Abdomen/Pelvis CT 08/20/19 20:33 IMPRESSION: 1. Nonvisualization of the gallbladder and appendix in accordance with history of cholecystectomy and appendectomy. 2. Scattered colonic diverticuli with no evidence of associated diverticulitis. 3. A tiny amount of gas is seen in the urinary bladder. 4. There is a tiny fat-containing umbilical hernia. Electronically Signed: Gareth Gamble MD at 21:12 EST , Service support , Chest X-Ray 08/20/19 21:45 IMPRESSION: Calcific plaques of the aortic arch. No acute cardiopulmonary disease process is seen. Electronically Signed: Gareth Gamble MD at 22:13 EST , Service support , Laboratory Data 08/20/19 08/20/19 08/20/19 18:45 18:45 19:37 WBC 15.8 H RBC 4.83 Hgb 13.3 Hct 40.3 MCV 83.4 MCH 27.5 MCHC 33.0 RDW Std Deviation 42.5 RDW Coeff of Be 14.1 Plt Count 313 MPV 10.9 Immature Gran % (Auto) 0.400 Neut % (Auto) 80.1 H Lymph % (Auto) 10.8 L [place] % (Auto) 7.0 Eos % (Auto) 1.3 Baso % (Auto) 0.4 Absolute Neuts (auto) 12.7 H Absolute Lymphs (auto) 1.71 Nucleated RBC % 0 Sodium 135 L Potassium 4.0 Chloride 102 Carbon Dioxide 25.0 Anion Gap 8 BUN 16 Creatinine 1.11 H Estim Creat Clear Calc 47.93 Est GFR (MDRD) Af Amer 63 Est GFR (MDRD) Non-Af 52 L BUN/Creatinine Ratio 14.4 Glucose 289 H Calcium 9.8 Total Bilirubin 1.20 H AST 12 L ALT 14 Alkaline Phosphatase 180 H Troponin I < 0.015 Total Protein 8.2 Albumin 3.5 Globulin 4.7 H Albumin/Globulin Ratio 0.7 L Lipase 83 Urine Color Yellow Urine Clarity Sl. Cloudy Urine pH 7.0 Ur Specific [place] 1.010 Urine Protein 30 H Urine Glucose (UA) 1000 H Urine Ketones 5 H Urine Occult Blood 25 H Urine Nitrite Negative Urine Bilirubin Negative Urine Urobilinogen Normal Ur Leukocyte Esterase Negative Urine RBC 0 SEEN Urine WBC 0-5 SEEN Ur Squamous Epith Cells 0-5 SEEN Urine Bacteria 0 SEEN Urine Mucus 0 SEEN - Rhythm Strip Rhythm Strip: Sinus Rhythm Rate: 75 Ectopy: None - EKG Initial EKG Interpretation: Sinus Rhythm, - - Normal sinus rhythm at a rate of 75 Normal intervals Left axis deviation Nonspecific T wave changes No ST segment abnormalities - Medical Decision Making Patient is evaluated for multiple episodes of vomiting. She denies any associated abdominal pain or constipation. She states this is typical of her gastroparesis symptoms. She normally takes p.o. Haldol at home but is not helping. Patient is given IV Haldol in the ER and I did check some baseline labs. She does have a leukocytosis however this might be reactive from her vomiting. Her abdomen is soft and nontender. In light of her leukocytosis I did obtain a chest x-ray and a CT of the abdomen and pelvis. These did not show any acute process to explain her symptoms. Patient is given a very small fluid bolus because of her history of CHF. While patient is the ER she does have improvement of her nausea and does not vomit. She is able to drink water. She is given a dose of Zofran as well. She does start to become more uncomfortable and hypertensive. Patient then tells me that she is due for her morphine sulfa te dose. This is likely why patient is having worsening symptoms. Patient is given a dose of morphine IV until she can go home to take her home morphine. Her blood pressure also improved after better pain control. I did check an oars report which confirms that patient is on morphine sulfate at home. Patient is offered admission for continued nausea and her gastroparesis but states that she rather just go home. I do not think patient has an acute surgical abnormality that requires emergent hospitalization. She is able to tolerate liquids in the ER and is otherwise well-appearing. Patient is counseled on signs and symptoms requiring return to the emergency room. Patient verbalizes agreement and understand this plan. Patient discharged home in stable and improved condition. ED Disposition - Plan for ED Patient: Disposition: Home or Assisted Living Diagnosis: Diabetic gastroparesis Instructions: VOMITING (5y-Adult) Referrals: Devan Parks MD [Primary Care Provider] - Additional Instructions: Your work-up was largely normal today. You do not have signs of heart failure. Your white blood cell count was elevated but this can be from vomiting alone. Continue to take all your medications prescribed to help with your symptoms. Please return the emergency room if you develop any worsening symptoms. Please make sure you go to all your follow-up appointments.
[2019-08-20] MEDS: Ondansetron 4 MG/2 ML Vial IV (20:25)
--- NOTE | 2019-08-20 20:33 | CT_ITS ---
STUDY: CT ABDOMEN AND PELVIS WITH CONTRAST REASON FOR EXAM: Female, 63 years old. ABD PAIN/N/V ELEV WBC. Hx of CHF, HLD, HTN, diabetes and gastroparesis. Prior appendectomy and cholecystectomy. Acute kidney injury. Delays through kidneys/bladder RADIATION DOSAGE (If Supplied By Facility): CTDIvol = ( 17.23 ) mGy, DLP = ( 2289.73 ) mGycm TECHNIQUE: Transaxial images were obtained from the dome of the diaphragm to the symphysis pubis without oral contrast. IV 100mL [id number]-300 was administered. Sagittal and coronal images were reconstructed. Individualized dose optimization techniques were used for this CT. COMPARISON: Prior study of 03/09/2018 FINDINGS: The visualized lung bases are unremarkable. The visualized portions of the heart are within normal limits. Normal liver. There are surgical clips in the gallbladder fossa consistent with a prior cholecystectomy. Normal spleen. Normal pancreas. Normal bilateral adrenal glands. Normal right kidney. Normal left kidney. Normal visualized stomach. Normal small intestine. There are scattered colonic diverticuli with no evidence of associated diverticulitis. There is non-visualization of the appendix. Normal abdominal aorta. Normal inferior vena cava. Normal retroperitoneum. A tiny amount of gas is seen in the urinary bladder. The uterus and adnexal structures are unremarkable. There is a tiny fat-containing umbilical hernia. There mild degenerative changes of the visualized thoracolumbar spine. CT/Abdomen/Pelvis W IV Cont ONLY IMPRESSION: 1. Nonvisualization of the gallbladder and appendix in accordance with history of cholecystectomy and appendectomy. 2. Scattered colonic diverticuli with no evidence of associated diverticulitis. 3. A tiny amount of gas is seen in the urinary bladder. 4. There is a tiny fat-containing umbilical hernia. Electronically Signed: Gareth Gamble MD at 21:12 EST , Service support ,
[2019-08-20 20:35] LABS: Squamous Epithelial Cells - UA 0-5 SEEN /hpf (5-10); White Blood Cells 0-5 SEEN /hpf (0-5)
[2019-08-20 21:20] VITALS: O2SAT 88
--- NOTE | 2019-08-20 21:45 | RAD_ITS ---
STUDY: X-RAY CHEST REASON FOR EXAM: Female, 63 years old. hypoxia, vomiting TECHNIQUE: Single AP portable view of the chest. COMPARISON: Previous study of 08/11/2019 FINDINGS: The lungs are clear and expanded. There is no demonstrated pleural abnormality. Normal size heart. Normal mediastinum and judith. Normal visualized pulmonary arteries. There are calcified plaques of the aortic arch. Normal visualized thoracic spine. Normal visualized ribs, clavicles, and shoulders. There is no demonstrated abnormality of the visualized soft tissue structures of the upper abdomen. RAD/Chest 1 View (Portable) IMPRESSION: Calcific plaques of the aortic arch. No acute cardiopulmonary disease process is seen. Electronically Signed: Gareth Gamble MD at 22:13 EST , Service support ,
[2019-08-20] MEDS: morphine 8 MG/ML Syringe IV (22:40)
[2019-08-20 23:07] VITALS: BP 210/75; PULSE 76; RESP 20; O2SAT 93
[2019-08-20 23:14] VITALS: BP 190/80
== END 2019-08-20 23:43 | disposition home or self-care (01) ==
PROVIDERS: Emergency Provider Emergency Medicine; Family Provider Family Medicine; PCP Family Medicine
DX: E10.43 Type 1 diabetes mellitus with diabetic autonomic (poly)neuropathy (principal); K31.84 Gastroparesis; K42.9 Umbilical hernia without obstruction or gangrene; K57.30 Diverticulosis of large intestine without perforation or abscess without bleeding; I70.0 Atherosclerosis of aorta; M54.9 Dorsalgia, unspecified; G89.29 Other chronic pain; I10 Essential (primary) hypertension; Z90.49 Acquired absence of other specified parts of digestive tract; Z79.4 Long term (current) use of insulin; Z79.82 Long term (current) use of aspirin; Z79.899 Other long term (current) drug therapy
CPT/HCPCS: 71045; 74177; 80053; 81001; 83690; 84484; 85025; 93005; 96361; 96374; 96375; 99283; J7050; Q9967; A4216; J2405

== ENCOUNTER 2019-08-21 14:20 | Inpatient (IN) | payer MEDICARE, OTHER, SELFPAY ==
[2019-08-20 18:23] VITALS: BMI 42.3
[2019-08-21] VITALS (7 sets, daily range): BP systolic 129–191; BP diastolic 64–117; PULSE 81–94; RESP 15–22; TEMP 36.1–36.9; O2SAT 95–100; BMI 42.3; BMI 40.8
--- NOTE | 2019-08-21 15:10 | CT_ITS ---
STUDY: CT BRAIN WITHOUT CONTRAST REASON FOR EXAM: Female, 63 years old. ALTERED MENTAL STATUS, ? UNINTENTIONAL OVERDOSE, C/O LBP RADIATION DOSAGE (If Supplied By Facility): CTDIvol = ( 44.99 ) mGy, DLP = ( 745.49 ) mGycm TECHNIQUE: Transaxial CT imaging of the brain was performed without administration of intravenous contrast material. Individualized dose optimization techniques were used for this CT. COMPARISON: Prior study of March 20, 2019 FINDINGS: Normal soft tissue structures. There is hyperostosis frontalis internus. Normal size ventricles and extra-axial spaces for the patient''s age. Normal white matter tracts of the cerebral hemispheres. Normal basal ganglia and thalami. Normal brainstem. Normal cerebellum. There is no intracranial hemorrhage. There are no findings of an acute ischemic infarction. There is mild mucosal thickening of the left maxillary and sphenoid sinuses. CT/Brain/Head without Contrast IMPRESSION: Mild chronic sinusitis of the left maxillary and sphenoid sinuses. This appears similar to the previous study. There is no evidence of intracranial hemorrhage or calvarial fracture. Electronically Signed: Gareth Gamble MD at 17:26 EST , Service support ,
--- NOTE | 2019-08-21 15:25 | ED.DCSUM_ITS ---
- ER Visit Summary Date of Service: 08/21/19 Chief Complaint: Back pain History of Present Illness: The patient is a 63 F presenting with back pain. Family states this started in June. She has had progressively increasing pain. No recent trauma. She had an MRI on Saturday but has not received the re sults yet. She has no bowel or bladder incontinence. She has been taking oral morphine at home. Family believes she is taking too much morphine and is confused. Denies fever. She was seen in the ED last night. They state she was offered admission but declined. Physical Examination: Vitals are stable. Patient is afebrile. Alert agitated, writhing in bed. HEENT exam is unremarkable. Neck is supple. Lungs are clear and equal bilaterally. Heart is regular rate and rhythm. Abdomen is soft nontender nondistended. No guarding or rebound Back: nontender to palpation Extremities right second toe erythema with ulcer with purulent drainage Skin is warm and dry. No focal neurologic deficit. Moves all extremities x4. Alert and oriented x 0. Remainder of exam is unremarkable. Emergency Department Course and Treatment: Patient was seen in the ED last night for nausea and vomiting with history of gastroparesis. She had a negative CT abdomen at that time. MRI results were obtained which showed lateral recess narrowing on both sides L4-L5 with no other convincing potential etiology for lumbosacral root disease. Oarrs report shows that she is receiving morphine sulfate from her primary care physician. Last filled 08/14/2019, 20 tablets. Patient continues to have significant pain and was given Valium. CBC shows white count 18.8. Chemistries show sodium 130, creatinine 1.11. Right foot x- ray shows degenerative changes. There is no evidence of fracture, dislocation, or lytic or blastic osseous process. The soft tissues are unremarkable. CT head shows mild chronic sinusitis of the left maxillary and sphenoid sinuses. This appears similar to the previous study. There is no evidence of intracranial hemorrhage or calvarial fracture. Blood and urine cultures were sent. ESR 50, CRP 112. She was given vancomycin and Zosyn IV. Discussed with the hospitalist for admission. Disposition: Admission Impression: Intractable back pain, diabetic toe infection, altered mental status This note was generated with [employer] dictation software. It may contain incorrect words, spelling, and punctuation that were not noted in review of the chart prior to signing ED Disposition - Plan for ED Patient: Referrals: Devan Parks MD [Primary Care Provider] -
[2019-08-21] MEDS: fentaNYL 100 MCG/2 ML Ampul 50 MCG IV (15:30)
[2019-08-21] MEDS: Ondansetron 4 MG/2 ML Vial IV (15:30)
[2019-08-21 15:39] LABS: Absolute Lymphocyte Count 1.07 X10^3/uL (0.83-4.51); Absolute Neutrophil Count 16.4 X10^3/uL (2.0-7.7); Basophil# 0.05 X10^3/uL; Basophil% 0.3 % (0-1); Eosinophil# 0.03 X10^3/uL; Eosinophils% 0.2 % (0-5); Hematocrit 39.5 % (37-47); Hemoglobin 13.4 g/dL (12.0-15.0); Lymphocyte # 1.07 X10^3/ul (4.0); Lymphocyte % 5.7 % (19-41); Mean Corp Hgb Conc 33.9 g/dL (32-36); Mean Corpuscular Hgb 27.7 pg (27.0-32.0); Mean Corpuscular Volume 81.6 fL (81-99); Mean Platelet Vol. 10.6 fl (6.2-12.0); Monocyte# 1.12 X10^3/uL; NRBC Flagged by Analyzer 0 % (0-5); Neutrophil # 16.42 X10^3/uL (2.7-7.7); Neutrophil % 87.3 % (47-70); Platelet Count 298 K/mm3 (150-450); RBC Distribution Width CV 13.9 % (11.6-14.6); RBC Distribution Width SD 40.6 fl (35.1-43.9); Red Blood Count 4.84 M/mm3 (4.2-5.4); White Blood Count 18.8 K/mm3 (4.4-11.0)
[2019-08-21 15:51] LABS: Mucous, Urine 0 SEEN /hpf (<or=2+)
[2019-08-21 15:54] LABS: Color, Urine Yellow (Yellow); Glucose, Dipstick 1000 mg/dl (Normal); Leukocyte Esterase-Dipstick 25 /ul (Negative); Nitrite-Dipstick Positive (Negative); Occult Blood-Urine 50 /ul (Negative); Protein-Dipstick 30 mg/dl (Negative); Urine Bilirubin Dipstick Negative (Negative); Urine Clarity Cloudy (Clear); Urine Urobilinogen Normal (Normal); Urine pH 6.5 (5.0 - 8.0)
[2019-08-21 15:56] LABS: Anion Gap 12 (5-15); BUN 14 mg/dL (7-18); BUN/Creat Ratio 12.6 RATIO (10-20); Calcium,Total 9.8 mg/dL (8.5-10.1); Chloride 97 mmol/L (98-107); Creatinine, Serum 1.11 mg/dL (0.55-1.02); EST Glomerular Filtration Rate 52 mL/min (>60); Est Glom Filt Rate - Afr Amer 63 mL/min (>60); Estimated Creatinine Clearance 47.93 ml/min; Glucose 304 mg/dL (74-106); Sodium Level 130 mmol/L (136-145)
[2019-08-21 16:04] LABS: Ketone-Dipstick 150 mg/dl (Negative)
[2019-08-21] MEDS: diazePAM 5 MG Tablet PO (16:11)
[2019-08-21] MEDS: 0.9% Normal Saline 1,000 ML 999 ML IV (16:12)
[2019-08-21 16:27] LABS: Bacteria 4+ /hpf (None Seen); Squamous Epithelial Cells - UA 0-5 SEEN /hpf (5-10)
[2019-08-21 16:30] LABS: White Blood Cells 0-5 SEEN /hpf (0-5)
[2019-08-21 16:34] LABS: Red Blood Cells-Urine 0-5 SEEN /hpf (0-5)
[2019-08-21 16:35] LABS: Transitional Epithelial - Ur 0-5 SEEN /hpf (0-5)
--- NOTE | 2019-08-21 16:40 | RAD_ITS ---
STUDY: X-RAY - RIGHT FOOT CLINICAL: Female, 63 years old. INFECTION TECHNIQUE: 3 view(s) of the foot. COMPARISON: None. FINDINGS: Normal talus, calcaneus, and tarsal bones. There are degenerative changes of the first through fifth metatarsal tarsal articulations. Normal metatarsi. There is bunion formation of the first metatarsal head. There is severe hallux valgus deformity of the first metatarsophalangeal joint. There are mild arthritic changes of the first metatarsophalangeal joint. Valgus deformity of the second and third metatarsophalangeal joints is also noted. Normal tibial and fibular sesamoid bones. Normal interphalangeal joint of the great toe. Normal phalanges of the great toe. Normal second through fifth metatarsophalangeal joints. Normal interphalangeal joints and phalanges of the lesser toes. The soft tissue structures are unremarkable. RAD/Foot min 3 Views IMPRESSION: Degenerative changes as detailed above. There is no evidence of fracture, dislocation, or lytic or blastic osseous process. The soft tissues are unremarkable. Electronically Signed: Gareth Gamble MD at 17:33 EST , Service support ,
[2019-08-21] MEDS: HYDROmorphone 1 MG/ML Syringe IV (16:44)
[2019-08-21 17:25] LABS: Erythrocyte Sedimentation Rate 50 mm/hr (0-30)
[2019-08-21 17:50] LABS: Lactic Acid 1.9 mmol/L (0.4-1.9)
--- NOTE | 2019-08-21 17:51 | HP.PCM_ITS ---
Problem List (1) Sepsis Status: Acute Qualifiers: Sepsis type: sepsis due to unspecified organism Sepsis acute organ dysfunction status: unspecified Qualified Code(s): A41.9 - Sepsis, unspecified organism (2) Diabetic infection of right foot Status: Acute (3) UTI (urinary tract infection) Status: Acute Qualifiers: Urinary tract infection type: site unspecified (4) Takotsubo cardiomyopathy Status: Chronic (5) Fibromyalgia Status: Chronic (6) Congestive heart failure Status: Inactive Qualifiers: Heart failure type: diastolic Heart failure chronicity: chronic Qualified Code(s): I50.32 - Chronic diastolic (congestive) heart failure (7) Type 2 diabetes mellitus Status: Chronic Qualifiers: Diabetes mellitus skilled nursing insulin use: with skilled nursing use Diabetes mellitus complication status: with other specified complication Qualified Code(s): E11.69 - Type 2 diabetes mellitus with other specified complication; Z79.4 - terminologist (current) use of insulin (8) Diabetic gastroparesis Status: Chronic (9) GERD (gastroesophageal reflux disease) Status: Chronic Qualifiers: Esophagitis presence: esophagitis presence not specified (10) Seizure disorder Status: Chronic (11) Paroxysmal atrial fibrillation Status: Chronic (12) Chronic pain syndrome Status: Chronic (13) Iron deficiency anemia Status: Chronic Qualifiers: Iron deficiency anemia type: unspecified iron deficiency (14) Depression Status: Chronic Qualifiers: Depression Type: unspecified (15) Morbid obesity with BMI of 40.0-44.9, adult Status: Chronic (16) HLD (hyperlipidemia) Status: Chronic Qualifiers: Hyperlipidemia type: pure hypercholesterolemia Qualified Code(s): E78.00 - Pure hypercholesterolemia, unspecified; E78.0 - Pure hypercholesterolemia (17) Benign essential HTN Status: Chronic History of Present Illness Date of Admission: 08/21/19 Chief Complaint: Confusion, back pain, N/V, R 2nd toe redness, edema, ulcer, foul smelling discharge The patient is a 61 y/o w/ PMHx: Fe deficiency anemia, Seizure disorder, PAF, HTN, HLD, Morbid obesity, Migraines, RLS, Diabetes mellitus type II with gastroparesis w/ History of cyclical N/V, Diastolic CHF, Hx Takotsubo's Cardiomyopathy, History of PE, ? Histor of CVA, Rheumatoid arthritis, Chronic pain syndrome who presents to the [facility] ED on 08/21/19 w/ intractable nausea, emesis ongoing x48 hours but could have been longer as family only noted this x2 days with patient denying diarrhea or abdominal discomfort associated but noting diffuse lumbar back pain, writhing in the ED bed although had recent MRI at outside hospital per discussion with ED physician and community record review that was unremarkable with no specific dysuria or frequency increase but markedly confused, noted per family when they evaluated her recently with also n oted right second toe redness, edema, foul-smelling discharge from a distal ulcer with unclear fever chills initially presenting to the ED on 08/20/2019 with recommendation for admission that time but patient refusal now representing per encouragement by family with similar complaints. Work-up in the ED included T 97, heart rate 85, BP 129/65, respiratory rate 22, 95% on room air, CBC with WBC 18.8, hemoglobin 13.4, platelet 298 with notable left shift, ESR 50, BMP with sodium 130, chloride 97, BUN/creatinine 14/1.11, glucose 304, lactic acid 1.9, CRP 112, urinalysis with specific gravity 1.010, protein 30, glucose 1000, ketones 150, occult blood 50, nitrite positive, leukocyte esterase 25, 4+ bacteria although 0-5 WBC, urine culture pending per ED, blood culture x2 pending per ED, CT of the brain with mild chronic sinusitis left maxillary and sphenoid sinuses similar to prior study with no evidence of acute intracranial findings, plain film of the right foot with generative changes with no evidence of acute fracture, dislocation, lytic or blastic osseous process with unremarkable soft tissues. In the ED patient ministered normal saline, Zofran, Dilaudid, fentanyl, Valium as well as Zosyn and vancomycin. Past Medical History Past Medical History (Chronic Problems): Chronic Problems (Last Reviewed 07/18/19 @ 21:19 by Jacques Santos MD) Takotsubo cardiomyopathy (Chronic) History of type 1 diabetes mellitus (Chronic) Fibromyalgia (Chronic) Type 2 diabetes mellitus (Chronic) 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) Diabetic gastroparesis (Chronic) GERD (gastroesophageal reflux disease) (Chronic) Seizure disorder (Chronic) Paroxysmal atrial fibrillation (Chronic) Chronic pain syndrome (Chronic) Iron deficiency anemia (Chronic) Depression (Chronic) Morbid obesity with BMI of 40.0-44.9, adult (Chronic) HLD (hyperlipidemia) (Chronic) Benign essential HTN (Chronic) Medical History: Medical History (Last Reviewed 07/18/19 @ 21:19 by Jacques Santos MD) Fibromyalgia (Chronic) M79.7 Congestive heart failure (Inactive) I50.9 Type 2 diabetes mellitus (Chronic) E11.9 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) I25.2 GERD (gastroesophageal reflux disease) (Chronic) K21.9 Seizure disorder (Chronic) G40.909 Paroxysmal atrial fibrillation (Chronic) I48.0 Chronic pain syndrome (Chronic) G89.4 Takotsubo cardiomyopathy (Acute) I51.81 Iron deficiency anemia (Chronic) D50.9 Depression (Chronic) F32.9 Morbid obesity with BMI of 40.0-44.9, adult (Chronic) E66.01, Z68.41 HLD (hyperlipidemia) (Chronic) E78.5 Benign essential HTN (Chronic) I10 Diabetic gastroparesis E11.43, K31.84 Diverticulitis K57.92 Fibromyalgia M79.7 QIAN (obstructive sleep apnea) G47.33 Restless leg syndrome G25.81 History of CVA (cerebrovascular accident) (Inactive) Z86.73 Allergies ciprofloxacin [From Cipro] Allergy (Verified 08/21/19 14:24) Shortness of breath ciprofloxacin HCl [From Cipro] Allergy (Verified 08/21/19 14:24) Shortness of breath cyclobenzaprine [From Flexeril] Allergy (Verified 08/21/19 14:24) Rash cyclobenzaprine HCl [From Flexeril] Allergy (Verified 08/21/19 14:24) Rash ketorolac tromethamine [From Toradol] Allergy (Verified 08/21/19 14:24) Chest tightness sulfamethoxazole [From Bactrim] Allergy (Verified 08/21/19 14:24) Itching trimethoprim [From Bactrim] Allergy (Verified 08/21/19 14:24) Itching metformin Adverse Reaction (Verified 08/21/19 14:24) Other headache valacyclovir HCl [From Valtrex] Adverse Reaction (Verified 08/21/19 14:24) Other Home Medications: Ambulatory Orders Medication Instructions Recorded Levothyroxine Sodium 75 mcg PO DAILY 09/17/18 Simvastatin 40 mg PO QHS 09/17/18 Hydroxychloroquine [Plaquenil] 200 mg PO BIDCM 11/30/18 Montelukast Sodium 10 mg PO DAILY 11/30/18 allopurinol 100 mg tablet 100 mg PO QHS tab 03/30/19 Insulin Regular, Human [Humulin R 35 unit SQ BID 04/11/19 U-500 Kwikpen] Hydrocodone/Acetaminophen 1 ea PO Q6H PRN PRN 07/18/19 [Hydrocodon-Acetaminophen 5-325] Menthol [Biofreeze] 1 applic TP BID PRN 07/18/19 Aspirin 81 mg PO DAILY 08/16/19 Furosemide [Lasix] 40 mg PO DAILY 08/16/19 Haloperidol 1 mg PO BID 08/16/19 Ropinirole HCl 1 mg PO DAILY 08/16/19 Sertraline HCl [Zoloft] 50 mg PO DAILY 08/16/19 Candesartan Cilexetil 16 mg PO DAILY 08/20/19 Carvedilol [Coreg (Beta Maria Teresa)] 6.25 mg PO BID 08/20/19 Insulin Glargine,Hum.rec.anlog 10 unit SQ DAILY 08/20/19 [Toujeo Solostar] Lamotrigine 100 mg PO BID 08/20/19 Pregabalin [Lyrica] 225 mg PO BID 08/20/19 Surgical History: Surgical History (Last Reviewed 07/18/19 @ 21:09 by Jacques Santos MD) History of cholecystectomy Z90.49 History of knee surgery Z98.890 History of left heart catheterization Onset Date: 03/09/19 Z98.890 Surgical History: appendectomy, cholecystectomy, - - Arthroscopic knee surgery. 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 MANAGER history Lives: With Family Smoking Status: Never smoker Tobacco Use: Non-smoker Alcohol: None Drugs: None - *Family History Paternal Family History: Family History (Last Reviewed 07/18/19 @ 21:19 by Jacques Santos MD) Mother Myocardial infarction Father Congestive heart failure Other Diabetes Heart disease History Items: Heart Disease, - - Bone cancer Maternal Family History: Family History (Last Reviewed 07/18/19 @ 21:19 by Jacques Santos MD) Mother Myocardial infarction Father Congestive heart failure Other Diabetes Heart disease History Items: COPD, Diabetes, Heart Disease, - - Smoker Review of Systems Constitutional: Reports: Anorexia, Malaise, Weakness, Fatigue. Denies: Chills, Fever, Weight Change HEENT: Denies: Head Aches, Sinus Congestion, Sinus Drainage Cardiovascular: Denies: Chest Pain, Chest Pressure, Chest Tightness, Light Headedness, Orthopnea, Palpitations, Syncope Respiratory: Denies: Cough, Shortness of Breath, Shortness of breath at rest, Shortness of breath upon exertion, Sputum production Gastrointestinal: Reports: Nausea, Vomiting. Denies: Abdominal Pain Genitourinary: Denies: Dysuria Musculoskeletal: Reports: Back Pain, Joint Pain. Denies: Joint Tenderness Skin: Reports: Skin Changes, Wounds. Denies: Rash Neurological: Reports: Confusion. Denies: Focal weakness, Numbness, Tingling Psychiatric: Reports: Anxiety, Depression. Denies: Homicidal Ideations, Suicidal Ideations Hematologic/ Lymphatic: Reports: Anemia, Easy Bruising, Easy Bleeding VTE Information - Inpt Only VTE Present on Admission: No VTE Mechan Device Prophylaxis: SCD's VTE Pharm Prophylaxis ordered?: Yes Patient Problems: Active and Suspected Problems (Last Reviewed 07/18/19 @ 21:19 by Jacques Santos MD) Sepsis (Acute) Diabetic infection of right foot (Acute) UTI (urinary tract infection) (Acute) Subjective: Laying in the ED bed, fatigued, ill-appearing, remains mildly confused. Objective: Physical Examination: General: awake, alert, oriented to self, place, giving incorrect dates, remains cooperative, laying on her side in ED bed, fatigued appearance, ill-appearing. Skin: normal color, turgor, no icterus, cyanosis except noted right second toe cellulitis, edema, medial distal toe ulcer with yellow purulent drainage and foul-smelling, posterior coccyx region with small stage II decubitus ulcer. HEENT: AT/NC, EOMI, PERRLA, dry MM, no carotid bruits or JVD noted. Lungs: Diminished breath sounds bilaterally, greater bilateral bases, mildly decreased effort, no rales, ronchi or wheezing. Heart: Regular rate and rhythm; no gallop, rub audible. Abdomen: soft, morbidly obese, NTTP, ND, normal BS, no HSM; however, habitus makes examination difficult. Extremities: no cyanosis, clubbing, edema to the right second toe as noted, see skin above. Neurological: patient awake, alert, oriented as noted; cognitive function not baseline intact; pupils equally reactive to light and accomodation; cranial nerves II-XII grossly normal, moving all 4 extremities, no focal deficits, strength severely global decrease secondary to acute presentation. Psychiatric: affect appears fatigued, ill, no acute evidence of depressive or anxiety feelings. - Physical Exam Vitals/I&O's: Vital Signs Temp Pulse Resp BP Pulse Ox 98.4 F 85 22 H 189/117 H 96 08/21/19 17:38 08/21/19 17:38 08/21/19 17:38 08/21/19 17:38 08/21/19 17:38 Oxygen Delivery Method Room Air Weight: 262 lb Body Mass Index (BMI) 42.3 Finger Stick Blood Glucose 480 Intake and Output for Last 24 Hours 08/19/19 08/20/19 08/21/19 23:59 23:59 23:59 Intake Total 1000 / 1000 Balance 1000 / 1000 Laboratory Results 08/21/19 15:30: WBC 18.8 H, RBC 4.84, Hgb 13.4, Hct 39.5, MCV 81.6, MCH 27.7, MCHC 33.9, RDW Std Deviation 40.6, RDW Coeff of Be 13.9, Plt Count 298, MPV 10.6, Immature Gran % (Auto) 0.500, Neut % (Auto) 87.3 H, Lymph % (Auto) 5.7 L, [place] % (Auto) 6.0, Eos % (Auto) 0.2, Baso % (Auto) 0.3, Absolute Neuts (auto) 16.4 H, Absolute Lymphs (auto) 1.07, Nucleated RBC % 0 08/21/19 15:30: Sodium 130 L, Potassium 5.0, Chloride 97 L, Carbon Dioxide 21.0, Anion Gap 12, BUN 14, Creatinine 1.11 H, Estim Creat Clear Calc 47.93, Est GFR (MDRD) Af Amer 63, Est GFR (MDRD) Non-Af 52 L, BUN/Creatinine Ratio 12.6, Glucose 304 H, Calcium 9.8 08/21/19 15:30: ESR 50 H 08/21/19 15:30: C-React Prot Ext Range 112.00 H 08/21/19 15:45: Urine Color Yellow, Urine Clarity Cloudy, Urine pH 6.5, Ur Specific [place] 1.010, Urine Protein 30 H, Urine Glucose (UA) 1000 H, Urine Ketones 150 H, Urine Occult Blood 50 H, Urine Nitrite Positive H, Urine Bilirubin Negative, Urine Urobilinogen Normal, Ur Leukocyte Esterase 25 H, Urine RBC 0-5 SEEN, Urine WBC 0-5 SEEN, Ur Squamous Epith Cells 0-5 SEEN, Ur Transition Epith Cell 0-5 SEEN, Urine Bacteria 4+, Urine Mucus 0 SEEN 08/21/19 17:20: Lactic Acid 1.9 Current Medications Vancomycin HCl 1,750 mg/ (Sodium Chloride) 535 mls @ 250 mls/hr IV X1 ONE Stop: 08/21/19 20:08 Piperacillin Sod/Tazobactam (Sod 3.375 gm/ Sodium Chloride) 50 mls @ 100 mls/hr IV X1 ONE Stop: 08/21/19 17:44 Last Admin: 08/21/19 17:38 Dose: 100 mls/hr Documented by: Assessment/Plan All Active Problems (Last Reviewed 07/18/19 @ 21:19 by Jacques Santos MD) Sepsis (Acute) Diabetic infection of right foot (Acute) UTI (urinary tract infection) (Acute) Takotsubo cardiomyopathy (Acute) The patient is a 61 y/o w/ PMHx: Fe deficiency anemia, Seizure disorder, PAF, HTN, HLD, Morbid obesity, Migraines, RLS, Diabetes mellitus type II with gastroparesis w/ History of cyclical N/V, Diastolic CHF, Hx Takotsubo's Cardiomyopathy, History of PE, ? Histor of CVA, Rheumatoid arthritis, Chronic pain syndrome who presents to the [facility] ED on 08/21/19 w/ intractable nausea, emesis ongoing x48 hours but could have been longer as family only noted this x2 days with patient denying diarrhea or abdominal discomfort associated but noting diffuse lumbar back pain, writhing in the ED bed although had recent MRI at outside hospital per discussion with ED physician and community record review that was unremarkable with no specific dysuria or frequency increase but markedly confused, noted per family when they evaluated her recently with also noted right second toe redness, edema, foul-smelling discharge from a distal ulcer with unclear fever chills initially presenting to the ED on 08/20/2019 with recommendation for admission that time but patient refusal now representing per encouragement by family with similar complaints. 1. Right lower extremity second toe diabetic foot infection with ulcer, cellulitic appearance as well as purulent drainage: Will admit to [facility], maintain on IV vancomycin and Zosyn, consult podiatry, will obtain Wound Cx, will obtain Wound MRSA PCR, plan repeat CBC in AM, continue affected extremity elevation above heart when seated and in bed, monitor erythema outline with VS checks. 2. Possible Acute Urinary Tract Infection: UA upon ED evaluation remarkable however no WBCs but 4+ bacteria and positive nitrite and leukocyte esterase, pending UCx, continue IVFs nutritiously given failure history, monitor I/Os, continue IV BSA with vancomycin and Zosyn given #1 w/ transition as able pending sensitivities and speciation. Bld cx x 2 obtained in the ED. 3. Diabetes mellitus type II with gastroparesis with cyclic nausea and vomiting: Current presentation possibly secondary to underlying gastroparesis given poorly controlled history although does have possible UTI and acute diabetic foot infection as noted above as possible alternate etiology, will hold oral home regimen, continue home insulin regimen, ADA diet, accu checks w/ ISS. HgbA1c pending. 4. Seizure disorder: We will continue patient home lamotrigine regimen. 5. Rheumatoid arthritis: We will continue patient home Plaquenil regimen. 6. Chronic pain syndrome, neuropathy, fibromyalgia: We will hold patient [place], continue Lyrica, transition to oxycodone given acute on chronic pain with IV morphine as needed breakthrough. 7. Anxiety and depression/questionable bipolar disorder: We will continue patient home Haldol, sertraline regimen. 8. ? Diastolic CHF, Hx Takotsubo's Cardiomyopathy: Maintain on asa, statin, BB, ARB, lasix with hold parameters. 9. Hypertension: Continue home regimen including Coreg, ARB, Lasix with hold parameters, PRN hydralazine. 10. Gout: We will continue patient home allopurinol regimen. 11. Hyperlipidemia: Continue home statin regimen. 12. Hypothyroidism: Continue home synthroid regimen. 13. RLS: We will continue patient home Requip regimen. 14. Iron deficiency anemia: Admission hemoglobin 13.4, stable, not on supplementation. 15. DVT prophylaxis: SCDs, Lovenox. Code Visit Inpatient E&M: 04842 Init Hosp L3
--- NOTE | 2019-08-21 18:20 | NURSING ---
MED SURG SEPSIS, ENCEPHALOPATHY, DIABETIC FOOT WHITE
[2019-08-21 19:45] LABS: Magnesium 1.6 mg/dL (1.6-2.6)
[2019-08-21] MEDS: Morphine 2 MG/ML Syringe IV (19:57)
[2019-08-21 20:38] LABS: Hemoglobin A1c 8.5 % (4.2-6.3)
[2019-08-21] MEDS: 0.9% Normal Saline 1,000 ML 100 ML IV (21:05)
--- NOTE | 2019-08-21 21:10 | PCM.RX.CS ---
Consult Pharmacy has been consulted to manage selected antiobiotic: Vancomycin Type of Consult: New start Suspected Infection: Sepsis Prior Doses of Antibiotics Received/Current Regimen: Vancomycin 1750mg IV x1 in ER on 08/21/19 at 1831 Labs: Sodium 130 mmol/L (136-145) L 08/21/19 15:30 Potassium 5.0 mmol/L (3.5-5.1) 08/21/19 15:30 Chloride 97 mmol/L (98-107) L 08/21/19 15:30 Carbon Dioxide 21.0 mmol/L (21.0-32.0) 08/21/19 15:30 Anion Gap 12 (5-15) 08/21/19 15:30 BUN 14 mg/dL (7-18) 08/21/19 15:30 Creatinine 1.11 mg/dL (0.55-1.02) H 08/21/19 15:30 Est GFR (MDRD) Af Amer 63 mL/min (>60) 08/21/19 15:30 Est GFR (MDRD) Non-Af 52 mL/min (>60) L 08/21/19 15:30 BUN/Creatinine Ratio 12.6 RATIO (10-20) 08/21/19 15:30 Glucose 304 mg/dL (74-106) H 08/21/19 15:30 Weight used for dosin kg Estimated Creatinine Clearance: 66ml/min Goal Trough: 15-20 mcg/mL Pharmacy Plan for Drug Dosing: Pt received a x1 dose of Vancomycin 1750mg in the ER on 08/21/19 at 1831. Based on pt's weight and CrCl pt to receive Vancomycin 1500mg IV q12h starting 08/22/19 at 0600. Trough will be drawn before the 4th total dose on 08/23/19 at 0530. CrCl was calculated using pt's adjusted body weight of 81.58kg Pharmacy Service will continue to monitor and adjust dosing as required. Follow-Up Labs: Trough Vancomycin - 08/23/19 at 0530
[2019-08-21 22:03] LABS: M R Staph aureus DNA By PCR Negative (Negative); Probe Check PASS; Specimen Processing Control PASS; Staph aureus DNA By PCR NEGATIVE (Negative)
[2019-08-21] MEDS: lamoTRIgine 100 MG Tablet PO (23:06)
[2019-08-21] MEDS: Haloperidol 1 MG Tablet PO (23:06)
[2019-08-21] MEDS: Atorvastatin Calcium 20 MG Tablet PO (23:06)
[2019-08-21] MEDS: Carvedilol 6.25 MG Tablet PO (23:06)
[2019-08-21] MEDS: Allopurinol 100 MG Tablet PO (23:06)
[2019-08-21] MEDS: Pregabalin 75 MG Capsule 225 MG PO (23:07)
[2019-08-21] MEDS: MELATONIN 3 MG TABLET PO (23:07)
[2019-08-21] MEDS: Metoclopramide 10 MG/2 ML Vial 5 MG IV (23:14)
[2019-08-21] MEDS: Insulin Lispro 100 UNIT/ML INSULN.PEN SC (23:29)
[2019-08-22] VITALS (21 sets, daily range): BP systolic 137–187; BP diastolic 53–92; PULSE 64–95; RESP 16–20; TEMP 36.4–37.4; O2SAT 93–99; BMI 41.0
[2019-08-22 00:06] LABS: Bedside Glucose 252 mg/dL (70-110)
[2019-08-22] MEDS: Morphine 2 MG/ML Syringe IV ×4 (02:17→21:24)
[2019-08-22] MEDS: Magnesium Sulfate 4gm/100mL 4 GM/100 ML IV.SOLN. IV (02:19)
[2019-08-22] MEDS: oxyCODONE 5 MG Tablet 10 MG PO ×2 (03:47→19:13)
[2019-08-22] MEDS: 0.9% Saline Lock 10 ML Syringe IV ×6 (03:48→23:37)
[2019-08-22] MEDS: hydrALAZINE 20 MG/ML Vial 10 MG IV ×3 (04:16→19:08)
[2019-08-22] MEDS: Metoclopramide 10 MG/2 ML Vial 5 MG IV ×2 (05:29→16:51)
[2019-08-22] MEDS: Levothyroxine 75 MCG Tablet PO (05:32)
[2019-08-22 06:54] LABS: Absolute Lymphocyte Count 1.61 X10^3/uL (0.83-4.51); Absolute Neutrophil Count 15.7 X10^3/uL (2.0-7.7); Basophil# 0.09 X10^3/uL; Basophil% 0.5 % (0-1); Eosinophil# 0.16 X10^3/uL; Eosinophils% 0.8 % (0-5); Hematocrit 35.8 % (37-47); Lymphocyte # 1.61 X10^3/ul (4.0); Lymphocyte % 8.3 % (19-41); Mean Corp Hgb Conc 33.5 g/dL (32-36); Mean Corpuscular Hgb 27.3 pg (27.0-32.0); Mean Corpuscular Volume 81.5 fL (81-99); Mean Platelet Vol. 10.1 fl (6.2-12.0); Monocyte# 1.82 X10^3/uL; Monocyte% 9.3 % (0-10); NRBC Flagged by Analyzer 0 % (0-5); Neutrophil % 80.5 % (47-70); POSITIVE DIFFERENTIAL YES; Platelet Count 330 K/mm3 (150-450); RBC Distribution Width CV 14.1 % (11.6-14.6); RBC Distribution Width SD 41.4 fl (35.1-43.9); Red Blood Count 4.39 M/mm3 (4.2-5.4); White Blood Count 19.5 K/mm3 (4.4-11.0)
[2019-08-22 07:01] LABS: Bedside Glucose 253 mg/dL (70-110)
[2019-08-22 07:05] LABS: Differential Indicated SCAN CRITERIA MET
[2019-08-22 07:36] LABS: Anion Gap 11 (5-15); BUN 12 mg/dL (7-18); BUN/Creat Ratio 13.2 RATIO (10-20); Calcium,Total 8.7 mg/dL (8.5-10.1); Chloride 99 mmol/L (98-107); Creatinine, Serum 0.91 mg/dL (0.55-1.02); EST Glomerular Filtration Rate 66 mL/min (>60); Est Glom Filt Rate - Afr Amer 80 mL/min (>60); Estimated Creatinine Clearance 58.47 ml/min; Glucose 252 mg/dL (74-106); Potassium 3.4 mmol/L (3.5-5.1); Sodium Level 133 mmol/L (136-145)
[2019-08-22] MEDS: Insulin Lispro 100 UNIT/ML INSULN.PEN SC (09:14)
[2019-08-22] MEDS: Losartan Potassium 25 MG Tablet 75 MG PO (09:20)
[2019-08-22] MEDS: Carvedilol 6.25 MG Tablet PO ×2 (09:20→21:38)
[2019-08-22] MEDS: Hydroxychloroquine 200 MG Tablet PO ×2 (09:20→18:12)
[2019-08-22] MEDS: Aspirin 81 MG TAB.CHEW PO (09:20)
[2019-08-22] MEDS: lamoTRIgine 100 MG Tablet PO ×2 (09:21→21:39)
[2019-08-22] MEDS: Haloperidol 1 MG Tablet PO ×2 (09:21→21:38)
[2019-08-22] MEDS: Pregabalin 75 MG Capsule 225 MG PO ×2 (09:22→21:39)
[2019-08-22] MEDS: Furosemide 40 MG Tablet PO (09:22)
[2019-08-22] MEDS: Sertraline 50 MG Tablet PO (09:23)
[2019-08-22] MEDS: Pramipexole Di-HCl 0.5 MG Tablet PO (09:23)
[2019-08-22] MEDS: Montelukast 10 MG Tablet PO (09:23)
[2019-08-22 09:45] LABS: Bedside Glucose 265 mg/dL (70-110)
--- NOTE | 2019-08-22 10:00 | CON.PCM_ITS ---
Problem List (1) Ulcer of right foot Status: Acute (2) Other hammer toe(s) (acquired), right foot Status: Acute (3) Toe osteomyelitis, right Status: Acute (4) Cellulitis of right toe Status: Acute (5) Type 2 diabetes mellitus with diabetic polyneuropathy Status: Acute Reason for Consult Date of Consultation: 08/22/19 Reason for Consultation: Ulcer to right 2nd toe History of Present Illness: The patient is a 63 year old F w/ PMHx: Fe deficiency anemia, Seizure disorder, PAF, HTN, HLD, Morbid obesity, Migraines, Diabetes mellitus type II, Diastolic CHF, Rheumatoid arthritis, along with other comorbidities presents to the [facility] ED yesterday evening complaining of ongoing severe lower back pain as well as pain in her upper legs. Upon further examination by the ER physician she also noted an open ulcer to the medial right second toe, which is why podiatry was consulted. Patient is somewhat of a poor historian. She feels the ulcer has been present since at least Saturday of last week, but feels it could have been longer. She has not been doing much on her own to treat this. Currently she denies any feelings of nausea and vomiting, but she does relate that she had the symptoms as early as last night. Patient also denies any feelings of fever or chills. [] Past Medical History Past Medical History (Chronic Problems): Chronic Problems (Last Reviewed 07/18/19 @ 21:19 by Jacques Santos MD) Takotsubo cardiomyopathy (Chronic) History of type 1 diabetes mellitus (Chronic) Fibromyalgia (Chronic) Type 2 diabetes mellitus (Chronic) 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) Diabetic gastroparesis (Chronic) GERD (gastroesophageal reflux disease) (Chronic) Seizure disorder (Chronic) Paroxysmal atrial fibrillation (Chronic) Chronic pain syndrome (Chronic) Iron deficiency anemia (Chronic) Depression (Chronic) Morbid obesity with BMI of 40.0-44.9, adult (Chronic) HLD (hyperlipidemia) (Chronic) Benign essential HTN (Chronic) Medical History: Medical History (Last Reviewed 07/18/19 @ 21:19 by Jacques Santos MD) Fibromyalgia (Chronic) M79.7 Congestive heart failure (Inactive) I50.9 Type 2 diabetes mellitus (Chronic) E11.9 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) I25.2 GERD (gastroesophageal reflux disease) (Chronic) K21.9 Seizure disorder (Chronic) G40.909 Paroxysmal atrial fibrillation (Chronic) I48.0 Chronic pain syndrome (Chronic) G89.4 Takotsubo cardiomyopathy (Acute) I51.81 Iron deficiency anemia (Chronic) D50.9 Depression (Chronic) F32.9 Morbid obesity with BMI of 40.0-44.9, adult (Chronic) E66.01, Z68.41 HLD (hyperlipidemia) (Chronic) E78.5 Benign essential HTN (Chronic) I10 Diabetic gastroparesis E11.43, K31.84 Diverticulitis K57.92 Fibromyalgia M79.7 QIAN (obstructive sleep apnea) G47.33 Restless leg syndrome G25.81 History of CVA (cerebrovascular accident) (Inactive) Z86.73 Allergies ciprofloxacin [From Cipro] Allergy (Verified 08/21/19 14:24) Shortness of breath ciprofloxacin HCl [From Cipro] Allergy (Verified 08/21/19 14:24) Shortness of breath cyclobenzaprine [From Flexeril] Allergy (Verified 08/21/19 14:24) Rash cyclobenzaprine HCl [From Flexeril] Allergy (Verified 08/21/19 14:24) Rash ketorolac tromethamine [From Toradol] Allergy (Verified 08/21/19 14:24) Chest tightness sulfamethoxazole [From Bactrim] Allergy (Verified 08/21/19 14:24) Itching trimethoprim [From Bactrim] Allergy (Verified 08/21/19 14:24) Itching metformin Adverse Reaction (Verified 08/21/19 14:24) Other headache valacyclovir HCl [From Valtrex] Adverse Reaction (Verified 08/21/19 14:24) Other Home Medications: Ambulatory Orders Medication Instructions Recorded Levothyroxine Sodium 75 mcg PO DAILY 09/17/18 Simvastatin 40 mg PO QHS 09/17/18 Hydroxychloroquine [Plaquenil] 200 mg PO BIDCM 11/30/18 Montelukast Sodium 10 mg PO DAILY 11/30/18 allopurinol 100 mg tablet 100 mg PO QHS tab 03/30/19 Insulin Regular, Human [Humulin R 35 unit SQ BID 04/11/19 U-500 Kwikpen] Hydrocodone/Acetaminophen 1 ea PO Q6H PRN PRN 07/18/19 [Hydrocodon-Acetaminophen 5-325] Menthol [Biofreeze] 1 applic TP BID PRN 07/18/19 Aspirin 81 mg PO DAILY 08/16/19 Furosemide [Lasix] 40 mg PO DAILY 08/16/19 Haloperidol 1 mg PO BID 08/16/19 Ropinirole HCl 1 mg PO DAILY 08/16/19 Sertraline HCl [Zoloft] 50 mg PO DAILY 08/16/19 Candesartan Cilexetil 16 mg PO DAILY 08/20/19 Carvedilol [Coreg (Beta Maria Teresa)] 6.25 mg PO BID 08/20/19 Insulin Glargine,Hum.rec.anlog 10 unit SQ DAILY 08/20/19 [Toujeo Solostar] Lamotrigine 100 mg PO BID 08/20/19 Pregabalin [Lyrica] 225 mg PO BID 08/20/19 Surgical History: Surgical History (Last Reviewed 07/18/19 @ 21:09 by Jacques Santos MD) History of cholecystectomy Z90.49 History of knee surgery Z98.890 History of left heart catheterization Onset Date: 03/09/19 Z98.890 Surgical History: appendectomy, cholecystectomy, - - Arthroscopic knee surgery. 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 Lives: With Family Smoking Status: Never smoker Tobacco Use: Non-smoker Alcohol: None Drugs: None - *Family History Paternal Family History: Family History (Last Reviewed 07/18/19 @ 21:19 by Jacques Santos MD) Mother Myocardial infarction Father Congestive heart failure Other Diabetes Heart disease History Items: Heart Disease, - - Bone cancer Maternal Family History: Family History (Last Reviewed 07/18/19 @ 21:19 by Jacques Santos MD) Mother Myocardial infarction Father Congestive heart failure Other Diabetes Heart disease History Items: COPD, Diabetes, Heart Disease, - - Smoker Review of Systems Constitutional: Denies: Chills, Fever, Weight Change Cardiovascular: Denies: Chest Pain, Palpitations Respiratory: Denies: Cough, Shortness of breath at rest, Sputum production Gastrointestinal: Denies: Abdominal Pain, Constipation Genitourinary: Denies: Dysuria Musculoskeletal: Reports: Back Pain Skin: Reports: - - Ulcer to right second toe Neurological: Denies: Numbness, Tingling, Focal weakness Psychiatric: Reports: Anxiety, Depression Patient Problems: Active and Suspected Problems (Last Reviewed 07/18/19 @ 21:19 by Jacques Santos MD) Sepsis (Acute) Diabetic infection of right foot (Acute) UTI (urinary tract infection) (Acute) Ulcer of right foot (Acute) Other hammer toe(s) (acquired), right foot (Acute) Toe osteomyelitis, right (Acute) Cellulitis of right toe (Acute) Type 2 diabetes mellitus with diabetic polyneuropathy (Acute) - Physical Exam Vitals/I&O's: Vital Signs Temp Pulse Resp BP Pulse Ox 98.4 F 95 18 187/92 H 96 08/22/19 08:49 08/22/19 09:36 08/22/19 08:49 08/22/19 09:36 08/22/19 08:49 Oxygen Delivery Method Room Air Weight: 114.8 kg Body Mass Index (BMI) 40.8 Finger Stick Blood Glucose 480 Intake and Output for Last 24 Hours 08/20/19 08/21/19 08/22/19 23:59 23:59 23:59 Intake Total 1645 / 1645 1268.33 / 1268.33 Output Total 200 / 200 Balance 1445 / 1445 1268.33 / 1268.33 General: Alert, Oriented x3, Cooperative Extremities: No cyanosis, Capillary Refill Less than 3 Seconds - To distal digits of each foot, No Calf Tenderness - Negative Kusum and Padilla signs bilateral, Peripheral Pulses Normal - DP and PT pulses palpable bilateral Skin: - - Ulcer to right medial second toe. Ulcer measures approximately 1 cm x 1 cm and probes deep to bone. There is some slight seropurulent drainage as well as malodor to this area. The second toe is noted to be is cellulitic with some edema. There is no streaking or extending cellulitis more proximally onto the foot. Musculoskeletal: - - No tenderness with manipulation or palpation of right second toe. Patient noted to have bilateral hammertoe deformities of digits 2 through 5 as well as bilateral HAV deformities due to patient's history of RA. Neurological: - - Epicritic sensation grossly absent to bilateral lower extremities consistent with patient's diabetic status. Psych/Mental Status: Normal Affect, Appropriate Laboratory Results 08/21/19 15:30: WBC 18.8 H, RBC 4.84, Hgb 13.4, Hct 39.5, MCV 81.6, MCH 27.7, MCHC 33.9, RDW Std Deviation 40.6, RDW Coeff of Be 13.9, Plt Count 298, MPV 10.6, Immature Gran % (Auto) 0.500, Neut % (Auto) 87.3 H, Lymph % (Auto) 5.7 L, [place] % (Auto) 6.0, Eos % (Auto) 0.2, Baso % (Auto) 0.3, Absolute Neuts (auto) 16.4 H, Absolute Lymphs (auto) 1.07, Nucleated RBC % 0 08/21/19 15:30: Sodium 130 L, Potassium 5.0, Chloride 97 L, Carbon Dioxide 21.0, Anion Gap 12, BUN 14, Creatinine 1.11 H, Estim Creat Clear Calc 47.93, Est GFR (MDRD) Af Amer 63, Est GFR (MDRD) Non-Af 52 L, BUN/Creatinine Ratio 12.6, Glucose 304 H, Calcium 9.8 08/21/19 15:30: ESR 50 H 08/21/19 15:30: C-React Prot Ext Range 112.00 H 08/21/19 15:30: Magnesium 1.6 08/21/19 15:30: Hemoglobin A1c 8.5 H 08/21/19 15:45: Urine Color Yellow, Urine Clarity Cloudy, Urine pH 6.5, Ur Specific [place] 1.010, Urine Protein 30 H, Urine Glucose (UA) 1000 H, Urine Ketones 150 H, Urine Occult Blood 50 H, Urine Nitrite Positive H, Urine Bilirubin Negative, Urine Urobilinogen Normal, Ur Leukocyte Esterase 25 H, Urine RBC 0-5 SEEN, Urine WBC 0-5 SEEN, Ur Squamous Epith Cells 0-5 SEEN, Ur Transition Epith Cell 0-5 SEEN, Urine Bacteria 4+, Urine Mucus 0 SEEN 08/21/19 17:20: Lactic Acid 1.9 08/21/19 20:43: S.aureus Protein A PCR NEGATIVE, MRSA (PCR) Negative 08/21/19 22:56: POC Glucose 252 H 08/22/19 06:33: WBC 19.5 H, RBC 4.39, Hgb 12.0, Hct 35.8 L, MCV 81.5, MCH 27.3, MCHC 33.5, RDW Std Deviation 41.4, RDW Coeff of Be 14.1, Plt Count 330, MPV 10.1, Immature Gran % (Auto) 0.600, Neut % (Auto) 80.5 H, Lymph % (Auto) 8.3 L, [place] % (Auto) 9.3, Eos % (Auto) 0.8, Baso % (Auto) 0.5, Absolute Neuts (auto) 15.7 H, Absolute Lymphs (auto) 1.61, Nucleated RBC % 0, Diff Path Review December08/22/19 06:33: Sodium 133 L, Potassium 3.4 L, Chloride 99, Carbon Dioxide 23.0, Anion Gap 11, BUN 12, Creatinine 0.91, Estim Creat Clear Calc 58.47, Est GFR (MDRD) Af Amer 80, Est GFR (MDRD) Non-Af 66, BUN/Creatinine Ratio 13.2, Glucose 252 H, Calcium 8.7 08/22/19 06:58: POC Glucose 253 H 08/22/19 09:06: POC Glucose 265 H Current Medications Acetaminophen (Tylenol) 650 mg PO Q6H PRN PRN PRN Reason: Non-cardiac pain () Al Hydroxide/Mg Hydroxide (Mylanta Ii) 15 - 30 ml PO Q4H PRN PRN PRN Reason: INDIGESTION Albuterol Sulfate (Ventolin Aerosols) 2.5 mg INHALATION Q2H PRN PRN PRN Reason: dyspnea, wheezing Allopurinol (Zyloprim) 100 mg PO QHS [facility] Last Admin: 08/21/19 23:06 Dose: 100 mg Documented by: Aspirin (Aspirin, Baby) 81 mg PO DAILY@0800 [facility] Last Admin: 08/22/19 09:20 Dose: 81 mg Documented by: Atorvastatin Calcium (Lipitor) 20 mg PO QHS [facility] Last Admin: 08/21/19 23:06 Dose: 20 mg Documented by: Carvedilol (Coreg) 6.25 mg PO BID [facility] Last Admin: 08/22/19 09:20 Dose: 6.25 mg Documented by: Enoxaparin Sodium (Lovenox) 40 mg SC DAILY [facility] Last Admin: 08/22/19 09:30 Dose: Not Given Documented by: Furosemide (Lasix) 40 mg PO DAILY [facility] Last Admin: 08/22/19 09:22 Dose: 40 mg Documented by: Glucagon () 1 mg IM .X1 PRN PRN Reason: Hypoglycemia Haloperidol (Haldol) 1 mg PO BID [facility] Last Admin: 08/22/19 09:21 Dose: 1 mg Documented by: Hydralazine HCl (Apresoline Iv) 10 mg IV Q4H PRN PRN PRN Reason: SBP > 160 Last Admin: 08/22/19 09:36 Dose: 10 mg Documented by: Hydroxychloroquine Sulfate (Plaquenil) 200 mg PO BIDCM [facility] Last Admin: 08/22/19 09:20 Dose: 200 mg Documented by: Sodium Chloride () 1,000 mls @ 100 mls/hr IV .Q10H [facility] Last Infusion: 08/22/19 02:22 Dose: 0 mls/hr Documented by: Vancomycin IV Pharmacy to Dose (1 ea/ Sodium Chloride) 500 mls @ 250 mls/hr IV X1 PRN; Protocol PRN Reason: Rx to Dose Piperacillin Sod/Tazobactam (Sod 3.375 gm/ Sodium Chloride) 50 mls @ 12.5 mls/hr IV Q8 [facility] Last Admin: 08/22/19 05:41 Dose: 12.5 mls/hr Documented by: Sodium Chloride () 250 mls @ 15 mls/hr IV .[id number] PRN PRN Reason: Saline Flush Sodium Chloride () 250 mls @ 15 mls/hr IV .[id number] PRN PRN Reason: Additional IVPB Infusion Dextrose (Dextrose 10%-Water) 250 mls @ 999 mls/hr IV .Q16M PRN; Protocol PRN Reason: HYPOGLYCEMIA Vancomycin HCl 1,500 mg/ (Sodium Chloride) 530 mls @ 250 mls/hr IV Q12H [facility] Last Infusion: 08/22/19 08:35 Dose: Infused Documented by: Insulin Glargine (Lantus ([facility])) 10 units SC DAILY [facility] Last Admin: 08/22/19 09:30 Dose: Not Given Documented by: Insulin Human Lispro (Humalog Kwikpen ([facility])) 0 unit SC ACHS [facility]; Protocol Last Admin: 08/22/19 09:14 Dose: 3 u Documented by: Insulin Human Regular (Humulin R U-500 ([facility])) 35 units SC BIDAC [facility] Last Admin: 08/22/19 09:18 Dose: 35 u Documented by: Lamotrigine (Lamictal) 100 mg PO BID [facility] Last Admin: 08/22/19 09:21 Dose: 100 mg Documented by: Levothyroxine Sodium (Synthroid) 75 mcg PO DAILY@0600 [facility] Last Admin: 08/22/19 05:32 Dose: 75 mcg Documented by: Losartan Potassium (Cozaar) 75 mg PO DAILY [facility] Last Admin: 08/22/19 09:20 Dose: 75 mg Documented by: Magnesium Hydroxide (Milk Of Magnesia) 30 ml PO DAILY PRN PRN Reason: Constipation Melatonin (Melatonin) 3 mg PO QHS PRN PRN PRN Reason: INSOMNIA Last Admin: 08/21/19 23:07 Dose: 3 mg Documented by: Metoclopramide HCl (Reglan) 5 mg IV Q8 [facility] Stop: 08/22/19 14:01 Last Admin: 08/22/19 05:29 Dose: 5 mg Documented by: Montelukast Sodium (Singulair) 10 mg PO DAILY [facility] Last Admin: 08/22/19 09:23 Dose: 10 mg Documented by: Morphine Sulfate () 2 - 4 mg IV Q4H PRN PRN PRN Reason: Pain Score 1-10/10 Last Admin: 08/22/19 09:03 Dose: 2 mg Documented by: Ondansetron HCl (Zofran) 4 mg IV Q8H PRN PRN PRN Reason: NAUSEA/VOMITING Oxycodone HCl (Oxyir) 10 mg PO Q4H PRN PRN PRN Reason: Pain Score 6-10/10 Last Admin: 08/22/19 03:47 Dose: 10 mg Documented by: Pramipexole Dihydrochloride (Mirapex) 0.5 mg PO DAILY [facility] Last Admin: 08/22/19 09:23 Dose: 0.5 mg Documented by: Pregabalin (Lyrica) 225 mg PO BID [facility] Last Admin: 08/22/19 09:22 Dose: 225 mg Documented by: Promethazine HCl (Phenergan) 6.25 mg IV Q4H PRN PRN PRN Reason: NAUSEA/VOMITING Sertraline HCl (Zoloft) 50 mg PO DAILY [facility] Last Admin: 08/22/19 09:23 Dose: 50 mg Documented by: Sodium Chloride () 10 - 40 ml IV UD PRN PRN Reason: SALINE FLUSH Last Admin: 08/22/19 05:29 Dose: 10 ml Documented by: Assessment/Plan All Active Problems (Last Reviewed 07/18/19 @ 21:19 by Jacques Santos MD) Sepsis (Acute) Diabetic infection of right foot (Acute) UTI (urinary tract infection) (Acute) Ulcer of right foot (Acute) Other hammer toe(s) (acquired), right foot (Acute) Toe osteomyelitis, right (Acute) Cellulitis of right toe (Acute) Type 2 diabetes mellitus with diabetic polyneuropathy (Acute) Takotsubo cardiomyopathy (Acute) Ulcer right second toe Osteomyelitis right second toe Cellulitis right second toe DM with neuropathy Hammertoe right second toe Other comorbidities This patient was carefully examined and evaluated earlier this morning resting in her bed. She was consulted for right medial second toe ulcer. She reports this area has been present since Saturday of last week, but feels that it could have been open longer she is not sure. Patient currently afebrile. Currently patient's WBC is 19.5. Upon admission last evening the patient's ESR was 50 and CRP was 112. Patient's hemoglobin A1c is 8.5. Wound cultures were taken of the toe and culture results are currently pending. MRSA PCR was negative. Blood and urine cultures are also still pending. Patient currently on IV antibiotics per primary team. Upon further evaluation of patient's right medial second toe ulcer, it was noted that this ulcer probes directly to bone. There is also scant foul-smelling seropurulent drainage noted. Right second toe is cellulitic. There is no cellulitis extending any more proximal than the second toe. Due to the clinical presentation of the patient's right second toe, I discussed all of the patient's options with her in great detail. At this time, she agrees to proceed with debridement of all necrotic, nonviable, infected soft tissue and bone of the right foot with amputation of the right second toe. We discussed in depth all of the risks, benefits, alternative options, and possible outcomes in detail. She understands all these and was able to repeat them back. She asked that I informed her sister as well. I did this via telephone conversation and answered any questions that the sister may have had. She is also in agreement with this plan. Consent was then obtained for the above procedure. Hospitalist agrees with plan as well. She will be taken to surgery within the next couple of hours. Continued medical management DVT prophylaxis appreciated per primary team. Podiatry will continue to follow this patient.
--- NOTE | 2019-08-22 11:00 | BON_PTH ---
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 Fina Huertas MD : [id number] BED: 1 DIS: 08/25/2019 SPEC #: [id number] RECD: 08/24/19 09:55 STATUS: JAY REKrista #: [id number] JERRY: 08/22/19 11:[address]: Benja Jernigan DEPT: SURGICAL PATHOLOGY RECD BY: Erich Cook ENTERED: 08/24/19 13:21 SP TYPE: Bone OTHR DR: MD Dr. Fina Govea MD Dr. Robert Leininger, MD Dr. Steven Murray, MD Tissues: A - Bone of foot, NOS B - Bone of foot, NOS Procedures: Decalcification bone/plaque Surgery Specimen Level IV HEADER OPERATION: Amputation second right toe PRE-OP DIAGNOSIS: Infected ulcer right second toe, osteomyelitis TISSUE SUBMITTED: A - Right second toe soft tissue and bone, B - Clearance fragment right second metatarsal MICROSCOPIC DIAGNOSIS A. Bone and tissue, right second toe, amputation: Skin and soft tissue with ulceration and associated acute and chronic inflammation and granulation. Bone with acute osteomyelitis. B. Clearance bone fragment, second toe, biopsy: Osseocartilaginous tissue with no evidence of osteomyelitis. AM:des 08/28/19 MICROSCOPIC DESCRIPTION Slides are reviewed. GROSS DESCRIPTION A - Received in fixative is one container labeled with the patient's name and designated right second toe bone and soft tissue. The specimen consists of a portion of bone measuring 6 x 2 x 2.5 cm. An area of ulceration is noted measuring 1.2 x 0.6 cm. Capacitor Repairer sections are submitted in two cassettes as follows: 1 - ulcerated area, 2 & 3 - bone after decalcification. B - Received in fixative is one container labeled with the patient's name and designated clearance fragment right second metatarsal. The specimen consists of a fragment of bone measuring 0.2 x 0.2 x 0.1. The specimen is totally submitted in one cassette after decalcification. / JAMEEL:des 08/24/19 TC:2 CPT: 81556 x2, 70992 x2
--- NOTE | 2019-08-22 11:06 | NURSING ---
Report called to ALMA Aguero in surgery. Informed that potassium is 3.4. Not replaced.
[2019-08-22] MEDS: Bupivacaine Mpf 0.5% 30 ML VIAL (11:50)
--- NOTE | 2019-08-22 12:28 | RAD_ITS ---
STUDY: X-RAY - RIGHT FOOT CLINICAL: Female, 63 years old. S/P RIGHT OPEN SECOND TOE AMPUTATION TECHNIQUE: 3 view(s) of the foot. COMPARISON: Previous study of 08/21/2019 FINDINGS: Normal talus, calcaneus, and tarsal bones. There are degenerative changes of the first through fifth metatarsal tarsal articulations. Normal metatarsi. There is again noted bunion formation of the first metatarsal head. There is hallux valgus deformity of the first metatarsophalangeal joint. Valgus deformity of the third metatarsophalangeal joint is also noted. Normal tibial and fibular sesamoid bones. Normal interphalangeal joint of the great toe. Normal phalanges of the great toe. Normal second through fifth metatarsophalangeal joints. Status post amputation changes of the second toe are noted. There is minimal soft tissue air in the region of the second metatarsal head. RAD/Foot min 3 Views IMPRESSION: Status post second amputation. Minimal soft tissue air is seen in the region of the second metatarsal head. Other findings as detailed above. Electronically Signed: Gareth Gamble MD at 16:10 EST , Service support ,
--- NOTE | 2019-08-22 12:43 | PCM.PROGNOTE ---
<Ashli Baldwin - Last Filed: 08/22/19 12:59> Patient Problems: Active and Suspected Problems (Last Reviewed 07/18/19 @ 21:19 by Jacques Santos MD) Sepsis (Acute) Diabetic infection of right foot (Acute) UTI (urinary tract infection) (Acute) Ulcer of right foot (Acute) Other hammer toe(s) (acquired), right foot (Acute) Toe osteomyelitis, right (Acute) Cellulitis of right toe (Acute) Type 2 diabetes mellitus with diabetic polyneuropathy (Acute) Subjective: Patient seen and examined. Dr. Jernigan, podiatry at bedside performing dressing change right second toe. Plan for amputation right second toe later this morning. Patient reports lower back and bilateral thigh pain. Reports nausea and vomiting overnight. Denies fever, chills. - Physical Exam Vitals/I&O's: Vital Signs Temp Pulse Resp BP Pulse Ox 97.5 F L 75 16 137/65 H 94 08/22/19 12:31 08/22/19 12:31 08/22/19 12:31 08/22/19 12:31 08/22/19 12:31 Oxygen Delivery Method Room Air Weight: 254 lb Body Mass Index (BMI) 41.0 Finger Stick Blood Glucose 480 Intake and Output for Last 24 Hours 08/20/19 08/21/19 08/22/19 23:59 23:59 23:59 Intake Total 1645 / 1645 1318.33 / 1318.33 Output Total 200 / 200 Balance 1445 / 1445 1318.33 / 1318.33 General: Alert, Oriented x3, Cooperative, - - Appears uncomfortable HEENT: Atraumatic, PERRLA, EOMI, Normocephalic Oral: Dry Mucosa Neck: Supple, No JVD, Negative Carotid Bruits Lungs: Clear to auscultation, Diminished Cardiovascular: Regular rate, Regular Rhythm, Normal S1, Normal S2, No murmurs Abdomen: Bowel Sounds Present, Soft, Non Tender, Non-Distended, Obese Extremities: No clubbing, No cyanosis, No edema Skin: No rashes, No breakdown, - - Right second toe ulceration with purulent drainage and surrounding cellulitis. Musculoskeletal: No Tenderness to Palpation of Joints or Extremities Neurological: Cranial nerves II-XII grossly intact, Neuro grossly intact Psych/Mental Status: Normal Affect, Appropriate Microbiology Past 72 Hours 08/21/19 21:10 Wound - Toe Gram Stain - Final Laboratory Results 08/21/19 15:30: WBC 18.8 H, RBC 4.84, Hgb 13.4, Hct 39.5, MCV 81.6, MCH 27.7, MCHC 33.9, RDW Std Deviation 40.6, RDW Coeff of Be 13.9, Plt Count 298, MPV 10.6, Immature Gran % (Auto) 0.500, Neut % (Auto) 87.3 H, Lymph % (Auto) 5.7 L, Hayes % (Auto) 6.0, Eos % (Auto) 0.2, Baso % (Auto) 0.3, Absolute Neuts (auto) 16.4 H, Absolute Lymphs (auto) 1.07, Nucleated RBC % 0 08/21/19 15:30: Sodium 130 L, Potassium 5.0, Chloride 97 L, Carbon Dioxide 21.0, Anion Gap 12, BUN 14, Creatinine 1.11 H, Estim Creat Clear Calc 47.93, Est GFR (MDRD) Af Amer 63, Est GFR (MDRD) Non-Af 52 L, BUN/Creatinine Ratio 12.6, Glucose 304 H, Calcium 9.8 08/21/19 15:30: ESR 50 H 08/21/19 15:30: C-React Prot Ext Range 112.00 H 08/21/19 15:30: Magnesium 1.6 08/21/19 15:30: Hemoglobin A1c 8.5 H 08/21/19 15:45: Urine Color Yellow, Urine Clarity Cloudy, Urine pH 6.5, Ur Specific [place] 1.010, Urine Protein 30 H, Urine Glucose (UA) 1000 H, Urine Ketones 150 H, Urine Occult Blood 50 H, Urine Nitrite Positive H, Urine Bilirubin Negative, Urine Urobilinogen Normal, Ur Leukocyte Esterase 25 H, Urine RBC 0-5 SEEN, Urine WBC 0-5 SEEN, Ur Squamous Epith Cells 0-5 SEEN, Ur Transition Epith Cell 0-5 SEEN, Urine Bacteria 4+, Urine Mucus 0 SEEN 08/21/19 17:20: Lactic Acid 1.9 08/21/19 20:43: S.aureus Protein A PCR NEGATIVE, MRSA (PCR) Negative 08/21/19 22:56: POC Glucose 252 H 08/22/19 06:33: WBC 19.5 H, RBC 4.39, Hgb 12.0, Hct 35.8 L, MCV 81.5, MCH 27.3, MCHC 33.5, RDW Std Deviation 41.4, RDW Coeff of Be 14.1, Plt Count 330, MPV 10.1, Immature Gran % (Auto) 0.600, Neut % (Auto) 80.5 H, Lymph % (Auto) 8.3 L, Hayes % (Auto) 9.3, Eos % (Auto) 0.8, Baso % (Auto) 0.5, Absolute Neuts (auto) 15.7 H, Absolute Lymphs (auto) 1.61, Nucleated RBC % 0, Diff Path Review December08/22/19 06:33: Sodium 133 L, Potassium 3.4 L, Chloride 99, Carbon Dioxide 23.0, Anion Gap 11, BUN 12, Creatinine 0.91, Estim Creat Clear Calc 58.47, Est GFR (MDRD) Af Amer 80, Est GFR (MDRD) Non-Af 66, BUN/Creatinine Ratio 13.2, Glucose 252 H, Calcium 8.7 08/22/19 06:58: POC Glucose 253 H 08/22/19 09:06: POC Glucose 265 H Current Medications Acetaminophen (Tylenol) 650 mg PO Q6H PRN PRN PRN Reason: Non-cardiac pain () Al Hydroxide/Mg Hydroxide (Mylanta Ii) 15 - 30 ml PO Q4H PRN PRN PRN Reason: INDIGESTION Albuterol Sulfate (Ventolin Aerosols) 2.5 mg INHALATION Q2H PRN PRN PRN Reason: dyspnea, wheezing Allopurinol (Zyloprim) 100 mg PO QHS [facility] Last Admin: 08/21/19 23:06 Dose: 100 mg Documented by: Aspirin (Aspirin, Baby) 81 mg PO DAILY@0800 [facility] Last Admin: 08/22/19 09:20 Dose: 81 mg Documented by: Atorvastatin Calcium (Lipitor) 20 mg PO QHS [facility] Last Admin: 08/21/19 23:06 Dose: 20 mg Documented by: Carvedilol (Coreg) 6.25 mg PO BID [facility] Last Admin: 08/22/19 09:20 Dose: 6.25 mg Documented by: Enoxaparin Sodium (Lovenox) 40 mg SC DAILY [facility] Last Admin: 08/22/19 09:30 Dose: Not Given Documented by: Furosemide (Lasix) 40 mg PO DAILY [facility] Last Admin: 08/22/19 09:22 Dose: 40 mg Documented by: Glucagon () 1 mg IM .X1 PRN PRN Reason: Hypoglycemia Haloperidol (Haldol) 1 mg PO BID [facility] Last Admin: 08/22/19 09:21 Dose: 1 mg Documented by: Hydralazine HCl (Apresoline Iv) 10 mg IV Q4H PRN PRN PRN Reason: SBP > 160 Last Admin: 08/22/19 09:36 Dose: 10 mg Documented by: Hydroxychloroquine Sulfate (Plaquenil) 200 mg PO BIDCM [facility] Last Admin: 08/22/19 09:20 Dose: 200 mg Documented by: Sodium Chloride () 1,000 mls @ 100 mls/hr IV .Q10H [facility] Last Infusion: 08/22/19 08:35 Dose: 100 mls/hr Documented by: Vancomycin IV Pharmacy to Dose (1 ea/ Sodium Chloride) 500 mls @ 250 mls/hr IV X1 PRN; Protocol PRN Reason: Rx to Dose Piperacillin Sod/Tazobactam (Sod 3.375 gm/ Sodium Chloride) 50 mls @ 12.5 mls/hr IV Q8 [facility] Last Infusion: 08/22/19 09:45 Dose: Infused Documented by: Sodium Chloride () 250 mls @ 15 mls/hr IV .[id number] PRN PRN Reason: Saline Flush Sodium Chloride () 250 mls @ 15 mls/hr IV .[id number] PRN PRN Reason: Additional IVPB Infusion Dextrose (Dextrose 10%-Water) 250 mls @ 999 mls/hr IV .Q16M PRN; Protocol PRN Reason: HYPOGLYCEMIA Vancomycin HCl 1,500 mg/ (Sodium Chloride) 530 mls @ 250 mls/hr IV Q12H [facility] Last Infusion: 08/22/19 08:35 Dose: Infused Documented by: Insulin Glargine (Lantus (Bk)) 10 units SC DAILY [facility] Last Admin: 08/22/19 09:30 Dose: Not Given Documented by: Insulin Human Lispro (Humalog Kwikpen (Bk)) 0 unit SC ACHS [facility]; Protocol Last Admin: 08/22/19 09:14 Dose: 3 u Documented by: Insulin Human Regular (Humulin R U-500 ([facility])) 35 units SC BIDAC [facility] Last Admin: 08/22/19 09:18 Dose: 35 u Documented by: Lamotrigine (Lamictal) 100 mg PO BID [facility] Last Admin: 08/22/19 09:21 Dose: 100 mg Documented by: Levothyroxine Sodium (Synthroid) 75 mcg PO DAILY@0600 [facility] Last Admin: 08/22/19 05:32 Dose: 75 mcg Documented by: Losartan Potassium (Cozaar) 75 mg PO DAILY [facility] Last Admin: 08/22/19 09:20 Dose: 75 mg Documented by: Magnesium Hydroxide (Milk Of Magnesia) 30 ml PO DAILY PRN PRN Reason: Constipation Melatonin (Melatonin) 3 mg PO QHS PRN PRN PRN Reason: INSOMNIA Last Admin: 08/21/19 23:07 Dose: 3 mg Documented by: Metoclopramide HCl (Reglan) 5 mg IV Q8 [facility] Stop: 08/22/19 14:01 Last Admin: 08/22/19 05:29 Dose: 5 mg Documented by: Montelukast Sodium (Singulair) 10 mg PO DAILY [facility] Last Admin: 08/22/19 09:23 Dose: 10 mg Documented by: Morphine Sulfate () 2 - 4 mg IV Q4H PRN PRN PRN Reason: Pain Score 1-10/10 Last Admin: 08/22/19 09:03 Dose: 2 mg Documented by: Nutritional Formula (Lactose Free) (Glucerna Shake) 120 ml PO 4X/DAY [facility] Ondansetron HCl (Zofran) 4 mg IV Q8H PRN PRN PRN Reason: NAUSEA/VOMITING Oxycodone HCl (Oxyir) 10 mg PO Q4H PRN PRN PRN Reason: Pain Score 6-10/10 Last Admin: 08/22/19 03:47 Dose: 10 mg Documented by: Pramipexole Dihydrochloride (Mirapex) 0.5 mg PO DAILY [facility] Last Admin: 08/22/19 09:23 Dose: 0.5 mg Documented by: Pregabalin (Lyrica) 225 mg PO BID [facility] Last Admin: 08/22/19 09:22 Dose: 225 mg Documented by: Promethazine HCl (Phenergan) 6.25 mg IV Q4H PRN PRN PRN Reason: NAUSEA/VOMITING Sertraline HCl (Zoloft) 50 mg PO DAILY [facility] Last Admin: 08/22/19 09:23 Dose: 50 mg Documented by: Sodium Chloride () 10 - 40 ml IV UD PRN PRN Reason: SALINE FLUSH Last Admin: 08/22/19 05:29 Dose: 10 ml Documented by: Medical Necessity - Tobacco Use Smoking Status: Never smoker Tobacco Use: Non-smoker Assessment/Plan All Active Problems (Last Reviewed 07/18/19 @ 21:19 by Jacques Santos MD) Sepsis (Acute) Diabetic infection of right foot (Acute) UTI (urinary tract infection) (Acute) Ulcer of right foot (Acute) Other hammer toe(s) (acquired), right foot (Acute) Toe osteomyelitis, right (Acute) Cellulitis of right toe (Acute) Type 2 diabetes mellitus with diabetic polyneuropathy (Acute) Takotsubo cardiomyopathy (Acute) 1. Right second toe ulceration with cellulitis and suspected osteomyelitis-plan to undergo right second toe amputation by Dr. Jernigan today. Continue IV Zosyn and IV vancomycin pending cultures. MRSA/MSSA PCR negative. Dressing changes per podiatry orders. 2. Possible UTI-urinalysis on admission with 4+ bacteria and positive nitrite. Culture pending. On IV antibiotics as noted above. Follow culture. 3. Type 2 diabetes mellitus with gastroparesis-hold oral regimen. Accu-Cheks ACHS with SSI. Hemoglobin A1c 8.5%. 4. Seizure disorder-continue home lamotrigine regimen. 5. Rheumatoid arthritis-continue Plaquenil regimen. 6. Chronic pain syndrome, neuropathy, fibromyalgia-continue Lyrica regimen. PRN pain regimen. 7. Anxiety/depression/questionable bipolar disorder-continue Haldol, sertraline regimen. 8. Chronic diastolic CHF, history of Takotsubo cardiomyopathy-continue aspirin, statin, beta-jenny, ARB, Lasix. 9. Hypertension-continue home regimen with PRN hydralazine for systolic blood pressure greater than 180. 10. Hyperlipidemia-continue statin. 11. Gout-continue allopurinol regimen. 12. Hypothyroidism-continue Synthroid regimen. 13. Restless leg syndrome-continue home Requip regimen. 14. Iron deficiency anemia-stable, trend CBC. DVT prophylaxis-Lovenox, SCDs This patient was seen by JONATAN Ley under the supervision of Dr. Damian. <Henok Damian - Last Filed: 08/22/19 16:10> Subjective: Seen and examined. Patient has right second toe ulcer with purulent discharge and high suspicion of osteomyelitis. Discussed with percussion welding machine operator. Plan for right second toe amputation. No fever or chills. Hemodynamically stable. - Physical Exam Vitals/I&O's: Vital Signs Temp Pulse Resp BP Pulse Ox 98.2 F 68 16 146/71 H 97 08/22/19 12:55 08/22/19 12:55 08/22/19 12:55 08/22/19 12:55 08/22/19 12:55 Oxygen Flow Rate (L/min) 2 Oxygen Delivery Method Nasal Cannula Weight: 254 lb Body Mass Index (BMI) 41.0 Finger Stick Blood Glucose 182 Intake and Output for Last 24 Hours 08/20/19 08/21/19 08/22/19 23:59 23:59 23:59 Intake Total 1645 / 1645 1318.33 / 1318.33 Output Total 200 / 200 Balance 1445 / 1445 1318.33 / 1318.33 General: Oriented x3, Lethargic, - HEENT: Atraumatic, PERRLA, EOMI, Normocephalic Oral: Dry Mucosa Neck: Supple, No JVD, Negative Carotid Bruits Lungs: Clear to auscultation, No rhonchi, No wheeze, No rales, Diminished - Air entry is diminished bilaterally. Cardiovascular: Regular rate, Regular Rhythm, Normal S1, Normal S2, No murmurs Abdomen: Bowel Sounds Present, Soft, Non Tender, Non-Distended Extremities: No edema, Capillary Refill Less than 3 Seconds Skin: No rashes, No breakdown, - - Right second toe ulceration with purulent drainage and surrounding cellulitis. Right second toe ulceration with purulent discharge and surrounding cellulitis with suspicion of osteomyelitis. Musculoskeletal: No Tenderness to Palpation of Joints or Extremities, Arthritic Changes Neurological: Cranial nerves II-XII grossly intact, Neuro grossly intact Psych/Mental Status: Normal Affect, Appropriate Microbiology Past 72 Hours 08/21/19 21:10 Wound - Toe Gram Stain - Final 08/21/19 21:10 Wound - Toe Wound Culture - Preliminary Streptococcus group B 08/21/19 15:45 Urine Catheter - Catheter Urine Culture - Preliminary Presumptive E. coli Laboratory Results 08/21/19 15:30: ESR 50 H 08/21/19 15:30: C-React Prot Ext Range 112.00 H 08/21/19 15:30: Magnesium 1.6 08/21/19 15:30: Hemoglobin A1c 8.5 H 08/21/19 15:45: Urine Color Yellow, Urine Clarity Cloudy, Urine pH 6.5, Ur Specific [place] 1.010, Urine Protein 30 H, Urine Glucose (UA) 1000 H, Urine Ketones 150 H, Urine Occult Blood 50 H, Urine Nitrite Positive H, Urine Bilirubin Negative, Urine Urobilinogen Normal, Ur Leukocyte Esterase 25 H, Urine RBC 0-5 SEEN, Urine WBC 0-5 SEEN, Ur Squamous Epith Cells 0-5 SEEN, Ur Transition Epith Cell 0-5 SEEN, Urine Bacteria 4+, Urine Mucus 0 SEEN 08/21/19 17:20: Lactic Acid 1.9 08/21/19 20:43: S.aureus Protein A PCR NEGATIVE, MRSA (PCR) Negative 08/21/19 22:56: POC Glucose 252 H 08/22/19 06:33: WBC 19.5 H, RBC 4.39, Hgb 12.0, Hct 35.8 L, MCV 81.5, MCH 27.3, MCHC 33.5, RDW Std Deviation 41.4, RDW Coeff of Be 14.1, Plt Count 330, MPV 10.1, Immature Gran % (Auto) 0.600, Neut % (Auto) 80.5 H, Lymph % (Auto) 8.3 L, Hayes % (Auto) 9.3, Eos % (Auto) 0.8, Baso % (Auto) 0.5, Absolute Neuts (auto) 15.7 H, Absolute Lymphs (auto) 1.61, Nucleated RBC % 0, Diff Path Review December08/22/19 06:33: Sodium 133 L, Potassium 3.4 L, Chloride 99, Carbon Dioxide 23.0, Anion Gap 11, BUN 12, Creatinine 0.91, Estim Creat Clear Calc 58.47, Est GFR (MDRD) Af Amer 80, Est GFR (MDRD) Non-Af 66, BUN/Creatinine Ratio 13.2, Glucose 252 H, Calcium 8.7 08/22/19 06:58: POC Glucose 253 H 08/22/19 09:06: POC Glucose 265 H 08/22/19 12:39: POC Glucose 182 H Current Medications Acetaminophen (Tylenol) 650 mg PO Q6H PRN PRN PRN Reason: Non-cardiac pain () Al Hydroxide/Mg Hydroxide (Mylanta Ii) 15 - 30 ml PO Q4H PRN PRN PRN Reason: INDIGESTION Albuterol Sulfate (Ventolin Aerosols) 2.5 mg INHALATION Q2H PRN PRN PRN Reason: dyspnea, wheezing Allopurinol (Zyloprim) 100 mg PO QHS [facility] Last Admin: 08/21/19 23:06 Dose: 100 mg Documented by: Aspirin (Aspirin, Baby) 81 mg PO DAILY@0800 [facility] Last Admin: 08/22/19 09:20 Dose: 81 mg Documented by: Atorvastatin Calcium (Lipitor) 20 mg PO QHS [facility] Last Admin: 08/21/19 23:06 Dose: 20 mg Documented by: Carvedilol (Coreg) 6.25 mg PO BID [facility] Last Admin: 08/22/19 09:20 Dose: 6.25 mg Documented by: Enoxaparin Sodium (Lovenox) 40 mg SC DAILY [facility] Last Admin: 08/22/19 09:30 Dose: Not Given Documented by: Furosemide (Lasix) 40 mg PO DAILY [facility] Last Admin: 08/22/19 09:22 Dose: 40 mg Documented by: Glucagon () 1 mg IM .X1 PRN PRN Reason: Hypoglycemia Haloperidol (Haldol) 1 mg PO BID [facility] Last Admin: 08/22/19 09:21 Dose: 1 mg Documented by: Hydralazine HCl (Apresoline Iv) 10 mg IV Q4H PRN PRN PRN Reason: SBP > 160 Last Admin: 08/22/19 09:36 Dose: 10 mg Documented by: [facility] Admin: 08/22/19 09:20 Dose: 200 mg Documented by: Sodium Chloride () 1,000 mls @ 100 mls/hr IV .Q10H [facility] Last Infusion: 08/22/19 08:35 Dose: 100 mls/hr Documented by: Vancomycin IV Pharmacy to Dose (1 ea/ Sodium Chloride) 500 mls @ 250 mls/hr IV X1 PRN; Protocol PRN Reason: Rx to Dose Piperacillin Sod/Tazobactam (Sod 3.375 gm/ Sodium Chloride) 50 mls @ 12.5 mls/hr IV Q8 [facility] Last Infusion: 08/22/19 09:45 Dose: Infused Documented by: Sodium Chloride () 250 mls @ 15 mls/hr IV .[id number] PRN PRN Reason: Saline Flush Sodium Chloride () 250 mls @ 15 mls/hr IV .[id number] PRN PRN Reason: Additional IVPB Infusion Dextrose (Dextrose 10%-Water) 250 mls @ 999 mls/hr IV .Q16M PRN; Protocol PRN Reason: HYPOGLYCEMIA Vancomycin HCl 1,500 mg/ (Sodium Chloride) 530 mls @ 250 mls/hr IV Q12H [facility] Last Infusion: 08/22/19 08:35 Dose: Infused Documented by: Insulin Glargine (Lantus (Bk)) 10 units SC DAILY [facility] Last Admin: 08/22/19 09:30 Dose: Not Given Documented by: Insulin Human Lispro (Humalog Kwikpen ([facility])) 0 unit SC ACHS [facility]; Protocol Last Admin: 08/22/19 09:14 Dose: 3 u Documented by: Insulin Human Regular (Humulin R U-500 ([facility])) 35 units SC BIDAC [facility] Last Admin: 08/22/19 09:18 Dose: 35 u Documented by: Lamotrigine (Lamictal) 100 mg PO BID [facility] Last Admin: 08/22/19 09:21 Dose: 100 mg Documented by: Levothyroxine Sodium (Synthroid) 75 mcg PO DAILY@0600 [facility] Last Admin: 08/22/19 05:32 Dose: 75 mcg Documented by: Losartan Potassium (Cozaar) 75 mg PO DAILY [facility] Last Admin: 08/22/19 09:20 Dose: 75 mg Documented by: Magnesium Hydroxide (Milk Of Magnesia) 30 ml PO DAILY PRN PRN Reason: Constipation Melatonin (Melatonin) 3 mg PO QHS PRN PRN PRN Reason: INSOMNIA Last Admin: 08/21/19 23:07 Dose: 3 mg Documented by: Montelukast Sodium (Singulair) 10 mg PO DAILY [facility] Last Admin: 08/22/19 09:23 Dose: 10 mg Documented by: Morphine Sulfate () 2 - 4 mg IV Q4H PRN PRN PRN Reason: Pain Score 1-10/10 Last Admin: 08/22/19 09:03 Dose: 2 mg Documented by: Nutritional Formula (Lactose Free) (Glucerna Shake) 120 ml PO 4X/DAY [facility] Ondansetron HCl (Zofran) 4 mg IV Q8H PRN PRN PRN Reason: NAUSEA/VOMITING Oxycodone HCl (Oxyir) 10 mg PO Q4H PRN PRN PRN Reason: Pain Score 6-10/10 Last Admin: 08/22/19 03:47 Dose: 10 mg Documented by: Pramipexole Dihydrochloride (Mirapex) 0.5 mg PO DAILY [facility] Last Admin: 08/22/19 09:23 Dose: 0.5 mg Documented by: Pregabalin (Lyrica) 225 mg PO BID [facility] Last Admin: 08/22/19 09:22 Dose: 225 mg Documented by: Promethazine HCl (Phenergan) 6.25 mg IV Q4H PRN PRN PRN Reason: NAUSEA/VOMITING Sertraline HCl (Zoloft) 50 mg PO DAILY [facility] Last Admin: 08/22/19 09:23 Dose: 50 mg Documented by: Sodium Chloride () 10 - 40 ml IV UD PRN PRN Reason: SALINE FLUSH Last Admin: 08/22/19 05:29 Dose: 10 ml Documented by: Assessment/Plan This patient was seen in conjunction with HAT FINISHING MATERIALS PREPARER, Ashli. I have independently interviewed and examined the patient and reviewed pertinent history, examination findings, laboratory and plan of management. I have reviewed the note and agree with the documented findings with the few additional points. In brief, patient is admitted for right second toe ulceration with surrounding cellulitis and high suspicion of osteomyelitis. Discussed with percussion welding machine operator Dr. Jernigan. Patient to undergo right second toe amputation in the morning. Currently patient is on IV vancomycin and Zosyn. ESR 50, CRP 112. Preliminary wound culture from 08/21 shows Streptococcus group B and urine culture E. coli more than 100,000. Patient also has UTI. As mentioned above Diabetes mellitus type 2: A1c 8.5. Other chronic comorbidities including chronic pain, chronic diastolic heart failure, history of Takotsubo cardiomyopathy. Patient had echo done in and reported as Interpretation Summary The study was technically difficult. Diluted definity 4ml given slow IV push to enhance endocardial definition. The estimated ejection fraction is 55 %. Stage 2 diastolic dysfunction. The left atrium is mildly enlarged. Trivial tricuspid valve insufficiency. Bicuspid aortic valve. The study was technically difficult. I have discussed my assessment with HAT FINISHING MATERIALS PREPARERAshli and orders have been reviewed. Microbiology Past 72 Hours 08/21/19 21:10 Wound - Toe Gram Stain - Final 08/21/19 21:10 Wound - Toe Wound Culture - Preliminary Streptococcus group B 08/21/19 15:45 Urine Catheter - Catheter Urine Culture - Preliminary Presumptive E. coli Laboratory Results 08/21/19 15:30: ESR 50 H 08/21/19 15:30: C-React Prot Ext Range 112.00 H 08/21/19 15:30: Magnesium 1.6 08/21/19 15:30: Hemoglobin A1c 8.5 H 08/21/19 15:45: Urine RBC 0-5 SEEN, Urine WBC 0-5 SEEN, Ur Squamous Epith Cells 0-5 SEEN, Ur Transition Epith Cell 0-5 SEEN, Urine Bacteria 4+, Urine Mucus 0 SEEN 08/21/19 17:20: Lactic Acid 1.9 08/21/19 20:43: S.aureus Protein A PCR NEGATIVE, MRSA (PCR) Negative 08/21/19 22:56: POC Glucose 252 H 08/22/19 06:33: WBC 19.5 H, RBC 4.39, Hgb 12.0, Hct 35.8 L, MCV 81.5, MCH 27.3, MCHC 33.5, RDW Std Deviation 41.4, RDW Coeff of Be 14.1, Plt Count 330, MPV 10.1, Immature Gran % (Auto) 0.600, Neut % (Auto) 80.5 H, Lymph % (Auto) 8.3 L, Hayes % (Auto) 9.3, Eos % (Auto) 0.8, Baso % (Auto) 0.5, Absolute Neuts (auto) 15.7 H, Absolute Lymphs (auto) 1.61, Nucleated RBC % 0, Diff Path Review December08/22/19 06:33: Sodium 133 L, Potassium 3.4 L, Chloride 99, Carbon Dioxide 23.0, Anion Gap 11, BUN 12, Creatinine 0.91, Estim Creat Clear Calc 58.47, Est GFR (MDRD) Af Amer 80, Est GFR (MDRD) Non-Af 66, BUN/Creatinine Ratio 13.2, Glucose 252 H, Calcium 8.7 08/22/19 06:58: POC Glucose 253 H 08/22/19 09:06: POC Glucose 265 H 08/22/19 12:39: POC Glucose 182 H Code Visit Inpatient E&M: 18816 Subs Hosp L3
[2019-08-22 12:51] LABS: Bedside Glucose 182 mg/dL (70-110)
--- NOTE | 2019-08-22 13:02 | OP.PCM_ITS ---
Problem List (1) Ulcer of right foot Status: Acute (2) Other hammer toe(s) (acquired), right foot Status: Acute (3) Toe osteomyelitis, right Status: Acute (4) Cellulitis of right toe Status: Acute (5) Type 2 diabetes mellitus with diabetic polyneuropathy Status: Acute Report of Operation Date of Procedure: 08/22/19 Pre-Operative Diagnosis: Ulcer to medial right second toe with cellulitis/osteomyelitis Post-Operative Diagnosis: Same Surgery/Procedure Performed:: Debridement of all necrotic, nonviable, infected soft tissue and bone of the right foot with right open second toe amputation Description of Surgical Findings:: Hemostasis: Well-padded ankle tourniquet Type of Anesthesia:: Local MAC - Preoperative block consisting of 10 mL of 0.5% Marcaine plain proximal to surgical site Specimen's removed: Necrotic, infected, nonviable soft tissue and bone of the right second toe that was sent to pathology microbiology for further evaluation. Clearance fragment from the second metatarsal head sent to pathology and microbiology for further evaluation. Description of Procedure: Indications: The patient is a 63 year old F w/ PMHx: Fe deficiency anemia, Seizure disorder, PAF, HTN, HLD, Morbid obesity, Migraines, Diabetes mellitus type II, Diastolic CHF, Rheumatoid arthritis, along with other comorbidities presents to the [facility] ED yesterday evening complaining of ongoing severe lower back pain as well as pain in her upper legs. Upon further examination by the ER physician she also noted an open ulcer to the medial right second toe, which is why podiatry was consulted. Patient is somewhat of a poor historian. She feels the ulcer has been present since at least Saturday of last week, but feels it could have been longer. She has not been doing much on her own to treat this. Patient has related some feelings of nausea and vomiting over the last couple of days. Patient currently afebrile. Currently patient's WBC is 19.5. Upon admission last evening the patient's ESR was 50 and CRP was 112. Patient's hemoglobin A1c is 8.5. Wound cultures were taken of the toe and culture results are currently pending. MRSA PCR was negative. Blood and urine cultures are also still pending. Patient currently on IV antibiotics per primary team. Upon further evaluation of patient's right medial second toe ulcer, it was noted that this ulcer probes directly to bone. There is a lot of nonviable, fibrotic, necrotic tissue to the ulcer base. There is also scant foul-smelling seropurulent drainage noted. Right second toe is cellulitic. There is no cellulitis extending any more proximal than the second toe. At this time the decision was made to perform the debridement of all nonviable, infected, necro tic soft tissue and bone of the right foot with partial right second toe amputation. At this time, the planned surgical procedure was discussed in great detail with the patient. This was done to the patient's satisfaction. The patient agrees to proceed with the planned procedure and operation at this time. All the risks and potential complications were reviewed to the patient. She relates an understanding and importance of proper compliance following this procedure to help optimize the potential of healing, but no guarantees were given. She is advised that the complications and risks include, but are not limited to, further infection, need for further surgeries, recurrence of ulcers, transfer lesions, increased deformity of the feet and toes, weakness, loss of strength, chronic swelling, Charcot foot, nerve damage, inability to walk, inability to wear shoes, severe pain, complex regional pain syndrome, need for more proximal or extensive amputation such as a TMA or BKA, loss of complete limb, or even possible loss of life. All the patient's questions were answered to her satisfaction. Patient also requested that I called her Sister Linda and informed her of our decision to go forward with surgery. I discussed this with the patient's sister and answered all in any questions that she had. It was then agreed upon to proceed with the above-stated procedure. The consent form was reviewed with the patient and was freely signed. Again no guarantees were given. Description of procedure: The patient was brought to the operating room and placed on the table in the supine position. The patient is already on IV antibiotics per hospitalist. The patient received MAC anesthesia with a local block consisting of 10 mL of 0.5% Marcaine plain administered proximal to surgic al site. Next, a well-padded ankle tourniquet was then applied to the patient's right ankle. The right foot and ankle were then scrubbed prepped and draped in usual aseptic manner. A timeout was performed and the patient was properly identified and the surgical plan was confirmed. Next, attention was directed to the right foot. The foot was then elevated and the tourniquet was inflated to 250 mmHg. Using a #15 scalpel blade, a vertical fishmouth incision was made starting dorsally just distal to the second MPJ. This incision was made completely down to bone. Next, dissection was carefully carried down making sure to avoid and retract any vital neurovascular structures with both sharp and blunt dissection. The right second toe was then disarticulated at the second MPJ. The right second toe was passed from the operative table in toto. The soft tissue and bone of the right second toe were then divided into 2 sections on the back table and half was sent to microbiology for aerobic, anaerobic, acid-fast, and fungal evaluation. The second half was then sent to pathology for further evaluation. Next, attention was directed back to the surgical site. All tendons were transected as far back as possible and any other nonviable appearing soft tissue was carefully dissected and removed. At this time, gloves were changed and clean instruments were used. The surgical site was flushed with copious amounts of normal sterile saline. The remaining tissue and bone appeared healthy. It was at this time that a Jamshidi was used to take a clearance fragment from the head of the second metatarsal. The bone appeared to be hard and healthy. This was again passed in toto from the operative table and split into 2 pieces with half going to microbiology for aerobic, anaerobic, acid-fast, and fungal evaluation. The other half was sent to pathology for further evaluation. Once this was complete, the surgical site was again flushed with copious amounts of normal sterile saline. The tourniquet was then dropped and a prompt hyperemic response was appreciated to remaining digits of the right foot as well as the distal surgical site. The surgical site was then packed with 1/4 inch iodoform packing and was then dressed with Adaptic, followed by 4 x 4's, ABDs, Kerlix, and an Basil bandage. After procedure: The patient tolerated the procedure and anesthesia well. She was transferred to the PACU with vital signs stable and vascular status intact to all remaining digits of the right foot. She will be transferred back to the hospital floor upon continued stability. She was advised to continue with nonweightbearing to left lower extremity as much as possible, and if she needs to be up for any reason, she is to be heel weightbearing to the right foot for only a few steps at a time with the assistance of her surgical shoe. She is to keep the dressing clean, dry, and intact. The patient is to continue with antibiotics under the management of primary team. Infectious disease will be consulted. She is also to continue DVT prophylaxis and medical management per primary team. She is to elevate the left foot for postop pain and edema management. Podiatry will continue to follow this patient while in house.
[2019-08-22 17:10] LABS: Bedside Glucose 141 mg/dL (70-110)
[2019-08-22] MEDS: Glucerna Shake 120 ML LIQUID PO ×2 (18:13→21:42)
--- NOTE | 2019-08-22 19:04 | NURSING ---
Attempted another IV x1 start without success.
[2019-08-22] MEDS: 0.9% Normal Saline 1,000 ML 100 ML IV (19:28)
[2019-08-22] MEDS: Atorvastatin Calcium 20 MG Tablet PO (21:39)
[2019-08-22 21:56] LABS: Bedside Glucose 139 mg/dL (70-110)
--- NOTE | 2019-08-22 22:26 | NURSING ---
This RN spoke with the pharmacist. Notified that 1400 Zosyn wasn't started until 16:53. This RN inquired about what time to give 22:00 Zosyn. Giovanni states to hang Zosyn at 23:30.
[2019-08-22] MEDS: Allopurinol 100 MG Tablet PO (22:58)
[2019-08-23] VITALS (11 sets, daily range): BP systolic 119–148; BP diastolic 41–64; PULSE 55–88; RESP 16–18; TEMP 36.2–37.1; O2SAT 95–100
[2019-08-23] MEDS: Glycerin/Hypromellose/PEG400 15 ml Bottle 1 DRP EACH EYE ×2 (00:42→07:55)
[2019-08-23] MEDS: oxyCODONE 5 MG Tablet 10 MG PO ×4 (00:43→16:52)
--- NOTE | 2019-08-23 04:44 | EKG12_ITS ---
Test Reason : DYSRHYTHMIA Blood Pressure : / mmHG Vent. Rate : 075 BPM Atrial Rate : 075 BPM P-R Int : 130 ms QRS Dur : 090 ms QT Int : 430 ms P-R-T Axes : -09 -43 066 degrees QTc Int : 480 ms Normal sinus rhythm Left axis deviation Minimal voltage criteria for LVH, may be normal variant Nonspecific T wave abnormality Abnormal ECG Confirmed by ABIMAEL CURRY, CAROLE ([id number]), editor publications VIDAL MCDERMOTT ([id number]) on 08/24/2019 12:44:03 PM Referred By: Sandra Burks Confirmed By:CAROLE VARGHESE MD
[2019-08-23] MEDS: Levothyroxine 75 MCG Tablet PO (05:27)
[2019-08-23 06:05] LABS: Hematocrit 34.6 % (37-47); Hemoglobin 11.4 g/dL (12.0-15.0); Mean Corp Hgb Conc 32.9 g/dL (32-36); Mean Corpuscular Hgb 27.5 pg (27.0-32.0); Mean Corpuscular Volume 83.4 fL (81-99); Platelet Count 289 K/mm3 (150-450); RBC Distribution Width CV 14.6 % (11.6-14.6); RBC Distribution Width SD 44.2 fl (35.1-43.9); Red Blood Count 4.15 M/mm3 (4.2-5.4); White Blood Count 13.6 K/mm3 (4.4-11.0)
[2019-08-23 06:40] LABS: Anion Gap 6 (5-15); BUN 11 mg/dL (7-18); BUN/Creat Ratio 12.8 RATIO (10-20); Chloride 108 mmol/L (98-107); Creatinine, Serum 0.86 mg/dL (0.55-1.02); EST Glomerular Filtration Rate 70 mL/min (>60); Est Glom Filt Rate - Afr Amer 85 mL/min (>60); Estimated Creatinine Clearance 61.87 ml/min; Glucose 71 mg/dL (74-106); Potassium 3.4 mmol/L (3.5-5.1); Sodium Level 139 mmol/L (136-145)
[2019-08-23 06:41] LABS: Vancomycin, Trough Level 28.2 ug/mL (5.0-15.0)
[2019-08-23] MEDS: 0.9% Normal Saline 1,000 ML 100 ML IV ×2 (06:56→15:39)
--- NOTE | 2019-08-23 07:42 | PCM.PROGNOTE ---
Subjective: Postoperative day #1 status post amputation of right second toe Zosyn day #3 Vancomycin day #3 The patient was seen independently and in conjunction with Ashli Baldwin NP. The patient is a 63-year-old female with an extensive past medical history which includes iron deficiency anemia, seizure disorder, paroxysmal atrial fibrillation, hypertension, hyperlipidemia, morbid obesity, migraines, restless leg syndrome, diabetes mellitus type 2 with gastroparesis, diastolic congestive heart failure, Takotsubo's cardiomyopathy, morbid obesity, history of CVA, rheumatoid arthritis and chronic pain syndrome who presented to the emergency department at [facility] on 08/21/2019 complaining of intractable nausea and emesis for the preceding 48 hours. She was also confused per the family and had a red R second toe with DC. A noncontrasted CT brain showed no acute findings. She was diagnosed with a right second toe diabetic foot infection. She was admitted to a monitored bed on PCU and started on vancomycin and Zosyn. Podiatry was consulted and she has been followed by Dr. Benja Jernigan. She was taken to the OR on 08/22/2019 and had an open second toe amputation on the right foot for cellulitis/osteomyelitis. All events the past 24 hours of been reviewed. She has been afebrile since admission. Vital signs are stable. She is 98 100% saturated on 3 L nasal cannula. All lab was personally reviewed. White blood cell count today is 13.6, down from 19.5 on 08/22/2019. Hemoglobin is 11.4 and platelets are within normal limits. Hyponatremia has been corrected and the current sodium is 139. Potassium is low at 3.4. BUN is 11 and the creatinine is 0.86. Hemoglobin A1c is 8.5. Medication list was reviewed Blood sugar record was reviewed and the blood sugars are coming under better control. FBS is 252 this morning and at 11 PM last night it was 139. - Physical Exam Vitals/I&O's: Vital Signs Temp Pulse Resp BP Pulse Ox 98.3 F 75 18 119/47 L 98 08/23/19 05:07 08/23/19 06:58 08/23/19 05:07 08/23/19 05:07 08/23/19 05:07 Oxygen Flow Rate (L/min) 3 Oxygen Delivery Method Nasal Cannula Weight: 259 lb 7.745 oz Body Mass Index (BMI) 41.0 Finger Stick Blood Glucose 182 Intake and Output for Last 24 Hours 08/21/19 08/22/19 08/23/19 23:59 23:59 23:59 Intake Total 1645 / 1645 3215.25 / 3215.25 798.33 / 798.33 Output Total 200 / 200 1133 / 1133 250 / 250 Balance 1445 / 1445 2082.25 / 2082.25 548.33 / 548.33 General: Alert, Oriented x3, Cooperative Neck: No JVD Lungs: Clear to auscultation, Normal air movement, No rhonchi, No wheeze, No rales Cardiovascular: Regular rate, Regular Rhythm, Normal S1, Normal S2, No murmurs, No rub noted, No Gallop Abdomen: Bowel Sounds Present, Soft, Non Tender, Non-Distended, Obese Extremities: No clubbing, No cyanosis, No edema Skin: - - please see Dr. Jernigan's dictation for a description of the wound today Neurological: Cranial nerves II-XII grossly intact, Neuro grossly intact Microbiology Past 72 Hours 08/21/19 21:10 Wound - Toe Gram Stain - Final 08/21/19 21:10 Wound - Toe Wound Culture - Preliminary Streptococcus group B 08/21/19 15:45 Urine Catheter - Catheter Urine Culture - Preliminary Presumptive E. coli Laboratory Results 08/22/19 09:06: POC Glucose 265 H 08/22/19 12:39: POC Glucose 182 H 08/22/19 16:37: POC Glucose 141 H 08/22/19 21:43: POC Glucose 139 H 08/23/19 05:46: Vancomycin Trough 28.2 H 08/23/19 05:46: WBC 13.6 H, RBC 4.15 L, Hgb 11.4 L, Hct 34.6 L, MCV 83.4, MCH 27.5, MCHC 32.9, RDW Std Deviation 44.2 H, RDW Coeff of Be 14.6, Plt Count 289, MPV 10.0 08/23/19 05:46: Sodium 139, Potassium 3.4 L, Chloride 108 H, Carbon Dioxide 25.0, Anion Gap 6, BUN 11, Creatinine 0.86, Estim Creat Clear Calc 61.87, Est GFR (MDRD) Af Amer 85, Est GFR (MDRD) Non-Af 70, BUN/Creatinine Ratio 12.8, Glucose 71 L, Calcium 8.0 L Current Medications Acetaminophen (Tylenol) 650 mg PO Q6H PRN PRN PRN Reason: Non-cardiac pain () Al Hydroxide/Mg Hydroxide (Mylanta Ii) 15 - 30 ml PO Q4H PRN PRN PRN Reason: INDIGESTION Albuterol Sulfate (Ventolin Aerosols) 2.5 mg INHALATION Q2H PRN PRN PRN Reason: dyspnea, wheezing Allopurinol (Zyloprim) 100 mg PO QHS [facility] Last Admin: 08/22/19 22:58 Dose: 100 mg Documented by: Aspirin (Aspirin, Baby) 81 mg PO DAILY@0800 [facility] Last Admin: 08/22/19 09:20 Dose: 81 mg Documented by: Atorvastatin Calcium (Lipitor) 20 mg PO QHS [facility] Last Admin: 08/22/19 21:39 Dose: 20 mg Documented by: Carvedilol (Coreg) 6.25 mg PO BID [facility] Last Admin: 08/22/19 21:38 Dose: 6.25 mg Documented by: Enoxaparin Sodium (Lovenox) 40 mg SC DAILY [facility] Last Admin: 08/22/19 09:30 Dose: Not Given Documented by: Furosemide (Lasix) 40 mg PO DAILY [facility] Last Admin: 08/22/19 09:22 Dose: 40 mg Documented by: Glucagon () 1 mg IM .X1 PRN PRN Reason: Hypoglycemia Haloperidol (Haldol) 1 mg PO BID [facility] Last Admin: 08/22/19 21:38 Dose: 1 mg Documented by: Hydralazine HCl (Apresoline Iv) 10 mg IV Q4H PRN PRN PRN Reason: SBP > 160 Last Admin: 08/22/19 19:08 Dose: 10 mg Documented by: [facility] Last Admin: 08/22/19 18:12 Dose: 200 mg Documented by: Sodium Chloride () 1,000 mls @ 100 mls/hr IV .Q10H [facility] Last Admin: 08/23/19 06:56 Dose: 100 mls/hr Documented by: Vancomycin IV Pharmacy to Dose (1 ea/ Sodium Chloride) 500 mls @ 250 mls/hr IV X1 PRN; Protocol PRN Reason: Rx to Dose Piperacillin Sod/Tazobactam (Sod 3.375 gm/ Sodium Chloride) 50 mls @ 12.5 mls/hr IV Q8 [facility] Last Admin: 08/23/19 06:57 Dose: 12.5 mls/hr Documented by: Sodium Chloride () 250 mls @ 15 mls/hr IV .[id number] PRN PRN Reason: Saline Flush Last Infusion: 08/23/19 03:38 Dose: 15 mls/hr Documented by: Sodium Chloride () 250 mls @ 15 mls/hr IV .[id number] PRN PRN Reason: Additional IVPB Infusion Dextrose (Dextrose 10%-Water) 250 mls @ 999 mls/hr IV .Q16M PRN; Protocol PRN Reason: HYPOGLYCEMIA Insulin Glargine (Lantus ([facility])) 10 units SC DAILY [facility] Last Admin: 08/22/19 09:30 Dose: Not Given Documented by: Insulin Human Lispro (Humalog Kwikpen ([facility])) 0 unit SC ACHS [facility]; Protocol Last Admin: 08/22/19 21:43 Dose: Not Given Documented by: Insulin Human Regular (Humulin R U-500 ([facility])) 35 units SC BIDAC [facility] Last Admin: 08/22/19 18:11 Dose: 35 u Documented by: Lamotrigine (Lamictal) 100 mg PO BID [facility] Last Admin: 08/22/19 21:39 Dose: 100 mg Documented by: Levothyroxine Sodium (Synthroid) 75 mcg PO DAILY@0600 [facility] Last Admin: 08/23/19 05:27 Dose: 75 mcg Documented by: Losartan Potassium (Cozaar) 75 mg PO DAILY [facility] Last Admin: 08/22/19 09:20 Dose: 75 mg Documented by: Magnesium Hydroxide (Milk Of Magnesia) 30 ml PO DAILY PRN PRN Reason: Constipation Melatonin (Melatonin) 3 mg PO QHS PRN PRN PRN Reason: INSOMNIA Last Admin: 08/21/19 23:07 Dose: 3 mg Documented by: Montelukast Sodium (Singulair) 10 mg PO DAILY [facility] Last Admin: 08/22/19 09:23 Dose: 10 mg Documented by: Morphine Sulfate () 2 - 4 mg IV Q4H PRN PRN PRN Reason: Pain Score 1-10/10 Last Admin: 08/22/19 21:24 Dose: 2 mg Documented by: Nutritional Formula (Lactose Free) (Glucerna Shake) 120 ml PO 4X/DAY [facility] Last Admin: 08/22/19 21:42 Dose: 120 ml Documented by: Ondansetron HCl (Zofran) 4 mg IV Q8H PRN PRN PRN Reason: NAUSEA/VOMITING Oxycodone HCl (Oxyir) 10 mg PO Q4H PRN PRN PRN Reason: Pain Score 6-10/10 Last Admin: 08/23/19 05:27 Dose: 10 mg Documented by: Pramipexole Dihydrochloride (Mirapex) 0.5 mg PO DAILY [facility] Last Admin: 08/22/19 09:23 Dose: 0.5 mg Documented by: Pregabalin (Lyrica) 225 mg PO BID [facility] Last Admin: 08/22/19 21:39 Dose: 225 mg Documented by: Promethazine HCl (Phenergan) 6.25 mg IV Q4H PRN PRN PRN Reason: NAUSEA/VOMITING Sertraline HCl (Zoloft) 50 mg PO DAILY [facility] Last Admin: 08/22/19 09:23 Dose: 50 mg Documented by: Sodium Chloride () 10 - 40 ml IV UD PRN PRN Reason: SALINE FLUSH Last Admin: 08/22/19 23:37 Dose: 10 ml Documented by: Medical Necessity - Tobacco Use Smoking Status: Never smoker Tobacco Use: Non-smoker Assessment/Plan All Active Problems (Last Updated 08/24/19 @ 12:53 by Fina Huertas MD) Sepsis (Acute) Diabetic infection of right foot (Acute) UTI (urinary tract infection) (Acute) Ulcer of right foot (Acute) Toe osteomyelitis, right (Acute) Impressions 1. Diabetic foot infection with and suspected osteomyelitis of the right second toe-postoperative day #1 status post amputation. Wound culture from admission grew 3+ group B strep and a rare Staphylococcus species. Culture done of the bone at the time of surgery has no growth to date. Blood cultures drawn at admission are still pending but have no growth to date. We will continue Vanco and Zosyn. 2. Diabetic peripheral polyneuropathy 3. UTI secondary to E. coli which is sensitive with the exception of intermediate sensitivity to Ancef. 4. Hypokalemia 5. Diabetes mellitus type 2-blood sugars are coming under better control with adjustments to the insulin regimen. Hemoglobin A1c is not adequately controlled at 8.5. Potassium supplemented and a daily dose was initiated. Change the Lantus to 10 units QHS and change the sliding insulin scale coverage to 3 times daily before meals. Discussed with Ashli Baldwin and other orders have been written. Code Visit Inpatient E&M: 05583 Subs Hosp L2
[2019-08-23] MEDS: Morphine 2 MG/ML Syringe IV ×2 (07:53→12:42)
[2019-08-23] MEDS: 0.9% Saline Lock 10 ML Syringe IV ×3 (07:53→15:29)
[2019-08-23 08:26] LABS: Magnesium 2.2 mg/dL (1.6-2.6)
[2019-08-23 09:53] LABS: Vancomycin, Random Level 23.3 ug/mL (0.0-15.0)
[2019-08-23 10:15] LABS: Bedside Glucose 123 mg/dL (70-110)
--- NOTE | 2019-08-23 10:40 | PN_ITS ---
Patient Problems: Active and Suspected Problems (Last Reviewed 07/18/19 @ 21:19 by Jacques Santos MD) Sepsis (Acute) Diabetic infection of right foot (Acute) UTI (urinary tract infection) (Acute) Ulcer of right foot (Acute) Other hammer toe(s) (acquired), right foot (Acute) Toe osteomyelitis, right (Acute) Cellulitis of right toe (Acute) Type 2 diabetes mellitus with diabetic polyneuropathy (Acute) Subjective: This patient was carefully examined and evaluated resting in bed early this morning POD #1 s/p open right 2nd toe amputation. She currently relates her pain is controlled in her right foot and in the area of surgery. She does however relate that she continues to have lower back pain. No strike through to outer dressing. Patient denies any feelings of nausea, vomiting, fever, or chills. - Physical Exam Vitals/I&O's: Vital Signs Temp Pulse Resp BP Pulse Ox 98.7 F 88 18 148/60 H 95 08/23/19 10:15 08/23/19 10:15 08/23/19 10:15 08/23/19 10:15 08/23/19 10:15 Oxygen Flow Rate (L/min) 3 Oxygen Delivery Method Room Air Weight: 117.7 kg Body Mass Index (BMI) 41.0 Finger Stick Blood Glucose 182 Intake and Output for Last 24 Hours 08/21/19 08/22/19 08/23/19 23:59 23:59 23:59 Intake Total 1645 / 1645 3215.25 / 3215.25 939.83 / 939.83 Output Total 200 / 200 1133 / 1133 250 / 250 Balance 1445 / 1445 2082.25 / 2082.25 689.83 / 689.83 General: Alert, Oriented x3, Cooperative, No apparent distress Extremities: No cyanosis, Capillary Refill Less than 3 Seconds - To all remaining digits of the right foot, No Calf Tenderness - Negative Kusum and Padilla signs bilateral, Peripheral Pulses Normal - DP and PT pulses palpable Skin: - - Open right second toe amputation surgical site to right foot. Right second met head can be visualized and appears healthy at this time. No necrotic appearing tissue appreciated today. The remaining tissue in the surgical site appears healthy and granular in appearance. There is no malodor and no purulence appreciated today. Musculoskeletal: - - No pain with manipulation of surgical site Neurological: - - Epicritic sensation grossly absent to bilateral lower extremities consistent with patient's diabetic status Psych/Mental Status: Normal Affect, Appropriate Microbiology Past 72 Hours 08/21/19 21:10 Wound - Toe Gram Stain - Final 08/21/19 21:10 Wound - Toe Wound Culture - Preliminary Streptococcus group B Staphylococcus species 08/21/19 15:45 Urine Catheter - Catheter Urine Culture - Final Presumptive E. coli Laboratory Results 08/22/19 12:39: POC Glucose 182 H 08/22/19 16:37: POC Glucose 141 H 08/22/19 21:43: POC Glucose 139 H 08/23/19 05:46: Vancomycin Trough 28.2 H 08/23/19 05:46: WBC 13.6 H, RBC 4.15 L, Hgb 11.4 L, Hct 34.6 L, MCV 83.4, MCH 27.5, MCHC 32.9, RDW Std Deviation 44.2 H, RDW Coeff of Be 14.6, Plt Count 289, MPV 10.0 08/23/19 05:46: Sodium 139, Potassium 3.4 L, Chloride 108 H, Carbon Dioxide 25.0, Anion Gap 6, BUN 11, Creatinine 0.86, Estim Creat Clear Calc 61.87, Est GFR (MDRD) Af Amer 85, Est GFR (MDRD) Non-Af 70, BUN/Creatinine Ratio 12.8, Glucose 71 L, Calcium 8.0 L 08/23/19 05:46: Magnesium 2.2 08/23/19 08:52: POC Glucose 123 H 08/23/19 09:15: Random Vancomycin 23.3 H Current Medications Acetaminophen (Tylenol) 650 mg PO Q6H PRN PRN PRN Reason: Non-cardiac pain (-05/28) Al Hydroxide/Mg Hydroxide (Mylanta Ii) 15 - 30 ml PO Q4H PRN PRN PRN Reason: INDIGESTION Albuterol Sulfate (Ventolin Aerosols) 2.5 mg INHALATION Q2H PRN PRN PRN Reason: dyspnea, wheezing Allopurinol (Zyloprim) 100 mg PO QHS [facility] Last Admin: 08/22/19 22:58 Dose: 100 mg Documented by: Aspirin (Aspirin, Baby) 81 mg PO DAILY@0800 [facility] Last Admin: 08/22/19 09:20 Dose: 81 mg Documented by: Atorvastatin Calcium (Lipitor) 20 mg PO QHS [facility] Last Admin: 08/22/19 21:39 Dose: 20 mg Documented by: Carvedilol (Coreg) 6.25 mg PO BID [facility] Last Admin: 08/22/19 21:38 Dose: 6.25 mg Documented by: Enoxaparin Sodium (Lovenox) 40 mg SC DAILY [facility] Last Admin: 08/22/19 09:30 Dose: Not Given Documented by: Furosemide (Lasix) 40 mg PO DAILY [facility] Last Admin: 08/22/19 09:22 Dose: 40 mg Documented by: Glucagon () 1 mg IM .X1 PRN PRN Reason: Hypoglycemia Haloperidol (Haldol) 1 mg PO BID [facility] Last Admin: 08/22/19 21:38 Dose: 1 mg Documented by: Hydralazine HCl (Apresoline Iv) 10 mg IV Q4H PRN PRN PRN Reason: SBP > 160 Last Admin: 08/22/19 19:08 Dose: 10 mg Documented by: [facility] Last Admin: 08/22/19 18:12 Dose: 200 mg Documented by: Sodium Chloride () 1,000 mls @ 100 mls/hr IV .Q10H [facility] Last Infusion: 08/23/19 07:44 Dose: 100 mls/hr Documented by: Vancomycin IV Pharmacy to Dose (1 ea/ Sodium Chloride) 500 mls @ 250 mls/hr IV X1 PRN; Protocol PRN Reason: Rx to Dose Piperacillin Sod/Tazobactam (Sod 3.375 gm/ Sodium Chloride) 50 mls @ 12.5 mls/hr IV Q8 [facility] Last Admin: 08/23/19 06:57 Dose: 12.5 mls/hr Documented by: Sodium Chloride () 250 mls @ 15 mls/hr IV .[id number] PRN PRN Reason: Saline Flush Last Infusion: 08/23/19 07:44 Dose: 0 mls/hr Documented by: Sodium Chloride () 250 mls @ 15 mls/hr IV .[id number] PRN PRN Reason: Additional IVPB Infusion Dextrose (Dextrose 10%-Water) 250 mls @ 999 mls/hr IV .Q16M PRN; Protocol PRN Reason: HYPOGLYCEMIA Insulin Glargine (Lantus ([facility])) 10 units SC QHS [facility] Insulin Human Lispro (Humalog Kwikpen ([facility])) 0 unit SC ACHS [facility]; Protocol Last Admin: 08/23/19 08:53 Dose: Not Given Documented by: Insulin Human Regular (Humulin R U-500 ([facility])) 35 units SC BIDAC [facility] Last Admin: 08/23/19 08:56 Dose: 35 u Documented by: Lamotrigine (Lamictal) 100 mg PO BID [facility] Last Admin: 08/22/19 21:39 Dose: 100 mg Documented by: Levothyroxine Sodium (Synthroid) 75 mcg PO DAILY@0600 [facility] Last Admin: 08/23/19 05:27 Dose: 75 mcg Documented by: Losartan Potassium (Cozaar) 75 mg PO DAILY [facility] Last Admin: 08/22/19 09:20 Dose: 75 mg Documented by: Magnesium Hydroxide (Milk Of Magnesia) 30 ml PO DAILY PRN PRN Reason: Constipation Melatonin (Melatonin) 3 mg PO QHS PRN PRN PRN Reason: INSOMNIA Last Admin: 08/21/19 23:07 Dose: 3 mg Documented by: Montelukast Sodium (Singulair) 10 mg PO DAILY [facility] Last Admin: 08/22/19 09:23 Dose: 10 mg Documented by: Morphine Sulfate () 2 - 4 mg IV Q4H PRN PRN PRN Reason: Pain Score 1-10/10 Last Admin: 08/23/19 07:53 Dose: 2 mg Documented by: Nutritional Formula (Lactose Free) (Glucerna Shake) 120 ml PO 4X/DAY [facility] Last Admin: 08/22/19 21:42 Dose: 120 ml Documented by: Ondansetron HCl (Zofran) 4 mg IV Q8H PRN PRN PRN Reason: NAUSEA/VOMITING Oxycodone HCl (Oxyir) 10 mg PO Q4H PRN PRN PRN Reason: Pain Score 6-10/10 Last Admin: 08/23/19 05:27 Dose: 10 mg Documented by: Potassium Chloride (K-Dur) [facility] Pramipexole Dihydrochloride (Mirapex) 0.5 mg PO DAILY [facility] Last Admin: 08/22/19 09:23 Dose: 0.5 mg Documented by: Pregabalin (Lyrica) 225 mg PO BID [facility] Last Admin: 08/22/19 21:39 Dose: 225 mg Documented by: Promethazine HCl (Phenergan) 6.25 mg IV Q4H PRN PRN PRN Reason: NAUSEA/VOMITING Sertraline HCl (Zoloft) 50 mg PO DAILY [facility] Last Admin: 08/22/19 09:23 Dose: 50 mg Documented by: Sodium Chloride () 10 - 40 ml IV UD PRN PRN Reason: SALINE FLUSH Last Admin: 08/23/19 07:53 Dose: 20 ml Documented by: Sodium Hypochlorite (Dakins Solution 0.25% (1/2 Strength)) 1 applic TOPICAL BID [facility]; Protocol Medical Necessity - Tobacco Use Smoking Status: Never smoker Tobacco Use: Non-smoker Assessment/Plan All Active Problems (Last Reviewed 07/18/19 @ 21:19 by Jacques Santos MD) Sepsis (Acute) Diabetic infection of right foot (Acute) UTI (urinary tract infection) (Acute) Ulcer of right foot (Acute) Other hammer toe(s) (acquired), right foot (Acute) Toe osteomyelitis, right (Acute) Cellulitis of right toe (Acute) Type 2 diabetes mellitus with diabetic polyneuropathy (Acute) Takotsubo cardiomyopathy (Acute) POD #1 s/p right open second toe amputation Osteomyelitis right second toe DM II with neuropathy Cellulitis - resolving Other comorbidities This patient was carefully examined and evaluated resting comfortably in bed this morning POD #1 s/p right open second toe amputation. No strikethrough appreciated outer dressing. WBC is 13.6 down from 19.5 yesterday. Patient is afebrile and vital signs stable currently. Preliminary results from wound culture prior to surgery show strep group B and Staphylococcus species. Micro and path results from the bone and tissue sent during surgery yesterday are still pending. Patient currently on IV antibiotics and infectious disease will be consulted. Surgical dressing was taken down at bedside today and site was evaluated. Currently there is no evidence of any necrotic tissue. There is no evidence of any purulence or malodor today. The site was carefully flushed with copious amounts of normal sterile saline. Next the surgical site was then packed with wet-to-dry dressing with packed 2 x 2's into the surgical site with half-strength Dakin solution, followed by 4 x 4's, ABDs, Kerlix, and an Basil bandage. Patient is to keep right lower extremity elevated to help with edema and pain control. Patient's dressing can be reinforced as noted above by nursing staff if necessary. Patient is to continue to be nonweightbearing to the right foot. If she needs to pivot or transfer very short distance she is to do this with heel weightbearing to the right side. Patient understands and is aware that further surgical procedures could be possible in the future. Continued medical management and DVT prophylaxis appreciated per primary team. Podiatry will continue to follow this patient.
[2019-08-23] MEDS: lamoTRIgine 100 MG Tablet PO ×2 (10:45→20:59)
[2019-08-23] MEDS: Sertraline 50 MG Tablet PO (10:45)
[2019-08-23] MEDS: Furosemide 40 MG Tablet PO (10:45)
[2019-08-23] MEDS: Carvedilol 6.25 MG Tablet PO ×2 (10:45→20:58)
[2019-08-23] MEDS: Haloperidol 1 MG Tablet PO ×2 (10:45→20:57)
[2019-08-23] MEDS: Montelukast 10 MG Tablet PO (10:45)
[2019-08-23] MEDS: Pramipexole Di-HCl 0.5 MG Tablet PO (10:45)
[2019-08-23] MEDS: Aspirin 81 MG TAB.CHEW PO (10:46)
[2019-08-23] MEDS: DAKIN'S SOL HALF STRENGTH (=0.25%) 1 APPLIC TOPICAL ×2 (10:46→20:57)
[2019-08-23] MEDS: Hydroxychloroquine 200 MG Tablet PO ×2 (10:46→16:43)
[2019-08-23] MEDS: Enoxaparin 40 MG/0.4 ML Syringe SC (10:49)
[2019-08-23] MEDS: Losartan Potassium 25 MG Tablet 75 MG PO (10:49)
[2019-08-23] MEDS: Pregabalin 75 MG Capsule 225 MG PO ×2 (10:53→20:57)
[2019-08-23] MEDS: Glucerna Shake 120 ML LIQUID PO ×3 (10:53→20:55)
[2019-08-23] MEDS: Insulin Lispro 100 UNIT/ML INSULN.PEN SC (11:09)
[2019-08-23 11:15] LABS: Bedside Glucose 190 mg/dL (70-110)
--- NOTE | 2019-08-23 11:21 | PCM.RX.CS ---
Consult Pharmacy has been consulted to manage selected antiobiotic: Vancomycin Type of Consult: Follow-up Suspected Infection: Sepsis Prior Doses of Antibiotics Received/Current Regimen: Has been on 1500mg iv q12h. Labs: Sodium 139 mmol/L (136-145) 08/23/19 05:46 Potassium 3.4 mmol/L (3.5-5.1) L 08/23/19 05:46 Chloride 108 mmol/L (98-107) H 08/23/19 05:46 Carbon Dioxide 25.0 mmol/L (21.0-32.0) 08/23/19 05:46 Anion Gap 6 (5-15) 08/23/19 05:46 BUN 11 mg/dL (7-18) 08/23/19 05:46 Creatinine 0.86 mg/dL (0.55-1.02) 08/23/19 05:46 Est GFR (MDRD) Af Amer 85 mL/min (>60) 08/23/19 05:46 Est GFR (MDRD) Non-Af 70 mL/min (>60) 08/23/19 05:46 BUN/Creatinine Ratio 12.8 RATIO (10-20) 08/23/19 05:46 Glucose 71 mg/dL (74-106) L 08/23/19 05:46 Vancomycin Trough 28.2 ug/mL (5.0-15.0) H 08/23/19 05:46 Random Vancomycin 23.3 ug/mL (0.0-15.0) H 08/23/19 09:15 Microbiology: Microbiology 08/21/19 21:10 Wound - Toe Gram Stain - Final 08/21/19 21:10 Wound - Toe Wound Culture - Preliminary Streptococcus group B Staphylococcus species 08/21/19 15:45 Urine Catheter - Catheter Urine Culture - Final Presumptive E. coli Weight used for dosin.6 kg Estimated Creatinine Clearance: ~66ml/min Goal Trough: 15-20 mcg/mL Pharmacy Plan for Drug Dosing: Today's level at 0546 (~8.5 hrs post dose of 08.22.19) was 28.2. A repeat trough level was done at 0915 (~12 hrs post dose) and level was 23.3 (goal range 15-20 mcg/ml). Vancomycin held for now and another level ordered for this PM 08.23.19 @2029. When level <20, new regimen will be determined and started by pharmacy service. Pharmacy Service will continue to monitor and adjust dosing as required. Follow-Up Labs: Trough Vancomycin - 1.5.20 @2029
--- NOTE | 2019-08-23 12:22 | PN_ITS ---
Patient Problems: Active and Suspected Problems (Last Reviewed 07/18/19 @ 21:19 by Jacques Santos MD) Sepsis (Acute) Diabetic infection of right foot (Acute) UTI (urinary tract infection) (Acute) Ulcer of right foot (Acute) Other hammer toe(s) (acquired), right foot (Acute) Toe osteomyelitis, right (Acute) Cellulitis of right toe (Acute) Type 2 diabetes mellitus with diabetic polyneuropathy (Acute) Subjective: Patient seen and examined. Complains of lower back and bilateral upper leg pain. Requesting to get up to chair. Denies fever, chills. Right foot dressing intact. - Physical Exam Vitals/I&O's: Vital Signs Temp Pulse Resp BP Pulse Ox 98.7 F 88 18 148/60 H 95 08/23/19 10:15 08/23/19 10:15 08/23/19 10:15 08/23/19 10:15 08/23/19 10:15 Oxygen Flow Rate (L/min) 3 Oxygen Delivery Method Room Air Weight: 259 lb 7.745 oz Body Mass Index (BMI) 41.0 Finger Stick Blood Glucose 182 Intake and Output for Last 24 Hours 08/21/19 08/22/19 08/23/19 23:59 23:59 23:59 Intake Total 1645 / 1645 3215.25 / 3215.25 989.83 / 989.83 Output Total 200 / 200 1133 / 1133 250 / 250 Balance 1445 / 1445 2082.25 / 2082.25 739.83 / 739.83 General: Alert, Oriented x3, Cooperative HEENT: Atraumatic, PERRLA, EOMI, Normocephalic Neck: Supple, No JVD, Negative Carotid Bruits Lungs: Clear to auscultation, Normal air movement Cardiovascular: Regular rate, Regular Rhythm, Normal S1, Normal S2, No murmurs Abdomen: Bowel Sounds Present, Soft, Non Tender, Non-Distended, Obese Extremities: No clubbing, No cyanosis, No edema, Capillary Refill Less than 3 Seconds Skin: No rashes, No breakdown, - - Status post right second toe amputation, postop dressing intact. Musculoskeletal: No Tenderness to Palpation of Joints or Extremities Neurological: Cranial nerves II-XII grossly intact, Neuro grossly intact Psych/Mental Status: Normal Affect, Appropriate Microbiology Past 72 Hours 08/22/19 Unknown Bone - Right Foot Wound Culture - Preliminary No growth-Final to follow 08/22/19 Unknown Tissue - Right Foot Wound Culture - Preliminary No growth-Final to follow 08/22/19 Unknown Bone - Right Foot Wound Culture - Preliminary No growth-Final to follow 08/21/19 21:10 Wound - Toe Gram Stain - Final 08/21/19 21:10 Wound - Toe Wound Culture - Preliminary Streptococcus group B Staphylococcus species 08/21/19 15:45 Urine Catheter - Catheter Urine Culture - Final Presumptive E. coli Laboratory Results 08/22/19 12:39: POC Glucose 182 H 08/22/19 16:37: POC Glucose 141 H 08/22/19 21:43: POC Glucose 139 H 08/23/19 05:46: Vancomycin Trough 28.2 H 08/23/19 05:46: WBC 13.6 H, RBC 4.15 L, Hgb 11.4 L, Hct 34.6 L, MCV 83.4, MCH 27.5, MCHC 32.9, RDW Std Deviation 44.2 H, RDW Coeff of Be 14.6, Plt Count 289, MPV 10.0 08/23/19 05:46: Sodium 139, Potassium 3.4 L, Chloride 108 H, Carbon Dioxide 25.0, Anion Gap 6, BUN 11, Creatinine 0.86, Estim Creat Clear Calc 61.87, Est GFR (MDRD) Af Amer 85, Est GFR (MDRD) Non-Af 70, BUN/Creatinine Ratio 12.8, Glucose 71 L, Calcium 8.0 L 08/23/19 05:46: Magnesium 2.2 08/23/19 08:52: POC Glucose 123 H 08/23/19 09:15: Random Vancomycin 23.3 H 08/23/19 11:07: POC Glucose 190 H Current Medications Acetaminophen (Tylenol) 650 mg PO Q6H PRN PRN PRN Reason: Non-cardiac pain () Al Hydroxide/Mg Hydroxide (Mylanta Ii) 15 - 30 ml PO Q4H PRN PRN PRN Reason: INDIGESTION Albuterol Sulfate (Ventolin Aerosols) 2.5 mg INHALATION Q2H PRN PRN PRN Reason: dyspnea, wheezing Allopurinol (Zyloprim) 100 mg PO QHS [facility] Last Admin: 08/22/19 22:58 Dose: 100 mg Documented by: Aspirin (Aspirin, Baby) 81 mg PO DAILY@0800 [facility] Last Admin: 08/23/19 10:46 Dose: 81 mg Documented by: Atorvastatin Calcium (Lipitor) 20 mg PO QHS [facility] Last Admin: 08/22/19 21:39 Dose: 20 mg Documented by: Carvedilol (Coreg) 6.25 mg PO BID [facility] Last Admin: 08/23/19 10:45 Dose: 6.25 mg Documented by: Enoxaparin Sodium (Lovenox) 40 mg SC DAILY [facility] Last Admin: 08/23/19 10:49 Dose: 40 mg Documented by: Furosemide (Lasix) 40 mg PO DAILY [facility] Last Admin: 08/23/19 10:45 Dose: 40 mg Documented by: Glucagon () 1 mg IM .X1 PRN PRN Reason: Hypoglycemia Haloperidol (Haldol) 1 mg PO BID [facility] Last Admin: 08/23/19 10:45 Dose: 1 mg Documented by: Hydralazine HCl (Apresoline Iv) 10 mg IV Q4H PRN PRN PRN Reason: SBP > 160 Last Admin: 08/22/19 19:08 Dose: 10 mg Documented by: [facility] Last Admin: 08/23/19 10:46 Dose: 200 mg Documented by: Sodium Chloride () 1,000 mls @ 100 mls/hr IV .Q10H [facility] Last Infusion: 08/23/19 07:44 Dose: 100 mls/hr Documented by: Vancomycin IV Pharmacy to Dose (1 ea/ Sodium Chloride) 500 mls @ 250 mls/hr IV X1 PRN; Protocol PRN Reason: Rx to Dose Piperacillin Sod/Tazobactam (Sod 3.375 gm/ Sodium Chloride) 50 mls @ 12.5 mls/hr IV Q8 [facility] Last Infusion: 08/23/19 10:57 Dose: Infused Documented by: Sodium Chloride () 250 mls @ 15 mls/hr IV .[id number] PRN PRN Reason: Saline Flush Last Infusion: 08/23/19 10:57 Dose: 15 mls/hr Documented by: Sodium Chloride () 250 mls @ 15 mls/hr IV .[id number] PRN PRN Reason: Additional IVPB Infusion Dextrose (Dextrose 10%-Water) 250 mls @ 999 mls/hr IV .Q16M PRN; Protocol PRN Reason: HYPOGLYCEMIA Insulin Glargine (Lantus ([facility])) 10 units SC QHS [facility] Insulin Human Lispro (Humalog Kwikpen ([facility] [place])) 0 unit SC ACHS [facility]; Protocol Last Admin: 08/23/19 11:09 Dose: 2 u Documented by: Insulin Human Regular (Humulin R U-500 ([facility] [place])) 35 units SC BIDAC [facility] Last Admin: 08/23/19 08:56 Dose: 35 u Documented by: Lamotrigine (Lamictal) 100 mg PO BID [facility] Last Admin: 08/23/19 10:45 Dose: 100 mg Documented by: Levothyroxine Sodium (Synthroid) 75 mcg PO DAILY@0600 [facility] Last Admin: 08/23/19 05:27 Dose: 75 mcg Documented by: Losartan Potassium (Cozaar) 75 mg PO DAILY [facility] Last Admin: 08/23/19 10:49 Dose: 75 mg Documented by: Magnesium Hydroxide (Milk Of Magnesia) 30 ml PO DAILY PRN PRN Reason: Constipation Melatonin (Melatonin) 3 mg PO QHS PRN PRN PRN Reason: INSOMNIA Last Admin: 08/21/19 23:07 Dose: 3 mg Documented by: Montelukast Sodium (Singulair) 10 mg PO DAILY [facility] Last Admin: 08/23/19 10:45 Dose: 10 mg Documented by: Morphine Sulfate () 2 - 4 mg IV Q4H PRN PRN PRN Reason: Pain Score 1-10/10 Last Admin: 08/23/19 07:53 Dose: 2 mg Documented by: Nutritional Formula (Lactose Free) (Glucerna Shake) 120 ml PO 4X/DAY [facility] Last Admin: 08/23/19 10:53 Dose: 120 ml Documented by: Ondansetron HCl (Zofran) 4 mg IV Q8H PRN PRN PRN Reason: NAUSEA/VOMITING Oxycodone HCl (Oxyir) 10 mg PO Q4H PRN PRN PRN Reason: Pain Score 6-10/10 Last Admin: 08/23/19 10:46 Dose: 10 mg Documented by: Potassium Chloride (K-Dur) [facility] Pramipexole Dihydrochloride (Mirapex) 0.5 mg PO DAILY [facility] Last Admin: 08/23/19 10:45 Dose: 0.5 mg Documented by: Pregabalin (Lyrica) 225 mg PO BID [facility] Last Admin: 08/23/19 10:53 Dose: 225 mg Documented by: Promethazine HCl (Phenergan) 6.25 mg IV Q4H PRN PRN PRN Reason: NAUSEA/VOMITING Sertraline HCl (Zoloft) 50 mg PO DAILY [facility] Last Admin: 08/23/19 10:45 Dose: 50 mg Documented by: Sodium Chloride () 10 - 40 ml IV UD PRN PRN Reason: SALINE FLUSH Last Admin: 08/23/19 07:53 Dose: 20 ml Documented by: Sodium Hypochlorite (Dakins Solution 0.25% (1/2 Strength)) 1 applic TOPICAL BID [facility]; Protocol Last Admin: 08/23/19 10:46 Dose: 1 applicatio Documented by: Medical Necessity - Tobacco Use Smoking Status: Never smoker Tobacco Use: Non-smoker Assessment/Plan All Active Problems (Last Reviewed 07/18/19 @ 21:19 by Jacques Santos MD) Sepsis (Acute) Diabetic infection of right foot (Acute) UTI (urinary tract infection) (Acute) Ulcer of right foot (Acute) Other hammer toe(s) (acquired), right foot (Acute) Toe osteomyelitis, right (Acute) Cellulitis of right toe (Acute) Type 2 diabetes mellitus with diabetic polyneuropathy (Acute) Takotsubo cardiomyopathy (Acute) 1. Right second toe ulceration with cellulitis and suspected osteomyelitis status post right second toe amputation by Dr. Jernigan 08/22/2019. Continue IV Zosyn and IV vancomycin pending cultures. MRSA/MSSA PCR negative. Dressing changes per podiatry orders. 2. Acute E. coli UTI-urinalysis on admission with 4+ bacteria and positive nitrite. Urine culture growing E. coli greater than 100,000 colony count. On IV Zosyn as noted above. 3. Type 2 diabetes mellitus with gastroparesis-hold oral regimen. Accu-Cheks ACHS with SSI. Hemoglobin A1c 8.5%. 4. Seizure disorder-continue home lamotrigine regimen. 5. Rheumatoid arthritis-continue Plaquenil regimen. 6. Chronic pain syndrome, neuropathy, fibromyalgia-continue Lyrica regimen. PRN pain regimen. 7. Anxiety/depression/questionable bipolar disorder-continue Haldol, sertraline regimen. 8. Chronic diastolic CHF, history of Takotsubo cardiomyopathy-continue aspirin, statin, beta-jenny, ARB, Lasix. 9. Hypertension-continue home regimen with PRN hydralazine for systolic blood pressure greater than 180. 10. Hyperlipidemia-continue statin. 11. Gout-continue allopurinol regimen. 12. Hypothyroidism-continue Synthroid regimen. 13. Restless leg syndrome-continue home Requip regimen. 14. Iron deficiency anemia-stable, trend CBC. DVT prophylaxis-Lovenox, SCDs This patient was seen by JONATAN Ley under the supervision of Dr. Vyas.
[2019-08-23] MEDS: Ketorolac 15 MG/ML Vial IV ×2 (15:27→20:56)
[2019-08-23 16:51] LABS: Bedside Glucose 105 mg/dL (70-110)
[2019-08-23 20:55] LABS: Bedside Glucose 239 mg/dL (70-110)
[2019-08-23] MEDS: Atorvastatin Calcium 20 MG Tablet PO (20:59)
[2019-08-23] MEDS: Allopurinol 100 MG Tablet PO (21:00)
[2019-08-23 21:20] LABS: Vancomycin, Trough Level 16.6 ug/mL (5.0-15.0)
[2019-08-24] VITALS (11 sets, daily range): BP systolic 130–171; BP diastolic 63–78; PULSE 67–83; RESP 16–18; TEMP 36.6–37.2; O2SAT 95–97
[2019-08-24] MEDS: oxyCODONE 5 MG Tablet 10 MG PO ×3 (00:40→18:00)
[2019-08-24] MEDS: 0.9% Normal Saline 1,000 ML 100 ML IV ×2 (01:46→12:01)
[2019-08-24] MEDS: Morphine 2 MG/ML Syringe IV ×3 (03:44→21:36)
[2019-08-24 05:18] LABS: Hematocrit 33.9 % (37-47); Mean Corp Hgb Conc 32.4 g/dL (32-36); Mean Corpuscular Hgb 27.4 pg (27.0-32.0); Mean Corpuscular Volume 84.3 fL (81-99); Mean Platelet Vol. 9.9 fl (6.2-12.0); Platelet Count 261 K/mm3 (150-450); RBC Distribution Width CV 14.2 % (11.6-14.6); RBC Distribution Width SD 43.8 fl (35.1-43.9); Red Blood Count 4.02 M/mm3 (4.2-5.4); White Blood Count 9.2 K/mm3 (4.4-11.0)
[2019-08-24 05:39] LABS: Anion Gap 4 (5-15); BUN 10 mg/dL (7-18); BUN/Creat Ratio 9.9 RATIO (10-20); Calcium,Total 8.1 mg/dL (8.5-10.1); Chloride 107 mmol/L (98-107); Creatinine, Serum 1.01 mg/dL (0.55-1.02); EST Glomerular Filtration Rate 59 mL/min (>60); Est Glom Filt Rate - Afr Amer 71 mL/min (>60); Estimated Creatinine Clearance 52.68 ml/min; Glucose 223 mg/dL (74-106); Sodium Level 137 mmol/L (136-145)
[2019-08-24] MEDS: Levothyroxine 75 MCG Tablet PO (05:48)
--- NOTE | 2019-08-24 05:56 | PHA.PHARE_ITS ---
Consult Pharmacy has been consulted to manage selected antiobiotic: Vancomycin Type of Consult: Follow-up Suspected Infection: Sepsis Labs: Sodium 137 mmol/L (136-145) 08/24/19 04:55 Potassium 4.0 mmol/L (3.5-5.1) 08/24/19 04:55 Chloride 107 mmol/L (98-107) 08/24/19 04:55 Carbon Dioxide 26.0 mmol/L (21.0-32.0) 08/24/19 04:55 Anion Gap 4 (5-15) L 08/24/19 04:55 BUN 10 mg/dL (7-18) 08/24/19 04:55 Creatinine 1.01 mg/dL (0.55-1.02) 08/24/19 04:55 Est GFR (MDRD) Af Amer 71 mL/min (>60) 08/24/19 04:55 Est GFR (MDRD) Non-Af 59 mL/min (>60) L 08/24/19 04:55 BUN/Creatinine Ratio 9.9 RATIO (10-20) L 08/24/19 04:55 Glucose 223 mg/dL (74-106) H 08/24/19 04:55 Vancomycin Trough 16.6 ug/mL (5.0-15.0) H 08/23/19 20:25 Random Vancomycin 23.3 ug/mL (0.0-15.0) H 08/23/19 09:15 Microbiology: Microbiology 08/22/19 Unknown Bone - Right Foot Gram Stain - Final 08/22/19 Unknown Bone - Right Foot Wound Culture - Preliminary No growth-Final to follow 08/22/19 Unknown Tissue - Right Foot Gram Stain - Final 08/22/19 Unknown Tissue - Right Foot Wound Culture - Preliminary No growth-Final to follow 08/22/19 Unknown Bone - Right Foot Gram Stain - Final 08/22/19 Unknown Bone - Right Foot Wound Culture - Preliminary No growth-Final to follow 08/21/19 21:10 Wound - Toe Gram Stain - Final 08/21/19 21:10 Wound - Toe Wound Culture - Preliminary Streptococcus group B Staphylococcus species 08/21/19 15:45 Urine Catheter - Catheter Urine Culture - Final Presumptive E. coli Goal Trough: 15-20 mcg/mL Pharmacy Plan for Drug Dosing: Pharmacy Service will continue to monitor and adjust dosing as required. NEW DOSE 1GM Q12H NEXT TROUGH 08/25 @ 1730 Follow-Up Labs: Trough Vancomycin Labs to be done on [date and time ordered]: 08/25 @ 1732
[2019-08-24] MEDS: Vancomycin IV 1,000 MG/200 ML BAG 200 MG IV (06:06)
[2019-08-24] MEDS: Insulin Lispro 100 UNIT/ML INSULN.PEN SC (07:04)
[2019-08-24 07:11] LABS: Bedside Glucose 236 mg/dL (70-110)
--- NOTE | 2019-08-24 08:04 | ART_ITS ---
Reason For Study: s/p toe amputation Procedure A bilateral lower extremity continuous wave Doppler with analog waveform analysis,segmental pressures,and ankle brachial indexes without exercise. Left Segmental Pressures Left posterior tibial artery = 240mmHg. Left dorsalis pedis artery = 220mmHg. Right Segmental Pressures Right brachial= 196mmHg. Right posterior tibial artery = 238mmHg. Indices The right ankle brachial index by the posterior tibial artery is 1.21. The left ankle brachial index by the posterior tibial artery is 1.22. The left ankle brachial index by the dorsalis pedis is 1.12. Interpretation Summary Triphasic Doppler waveforms are noted at ankle level bilaterally. Pulse-volume recording waveform amplitudes appear satisfactory at all levels bilaterally, but not obtained at digital level on the right. Resting ankle-brachial indices are normal bilaterally. The right digital pressure, digital- brachial index, and digital pulse-volume recording were not obtained due to the presence of a bandage. The left digital-brachial index could not be determined due to the non-compressibility of the vasculature. Arterial flow appears normal at ankle level bilaterally. Arterial flow was not assessed at digital level on the right. There is evidence of arterial calcification at digital level on the left, precluding determination of a left digital-brachial index. However, based upon pulse-volume recording waveform amplitude at digital level on the left, arterial flow is judged to be relatively normal. Ordering Physician: Ray Zapata Referring Physician: Sandra Burks Performed By: Chanda Avila RDCS/RVT
[2019-08-24] MEDS: Carvedilol 6.25 MG Tablet PO ×2 (09:59→21:44)
[2019-08-24] MEDS: Aspirin 81 MG TAB.CHEW PO (09:59)
[2019-08-24] MEDS: Losartan Potassium 25 MG Tablet 75 MG PO (09:59)
[2019-08-24] MEDS: Hydroxychloroquine 200 MG Tablet PO ×2 (09:59→17:59)
[2019-08-24] MEDS: Haloperidol 1 MG Tablet PO ×2 (10:00→21:44)
[2019-08-24] MEDS: Furosemide 40 MG Tablet PO (10:01)
[2019-08-24] MEDS: Montelukast 10 MG Tablet PO (10:01)
[2019-08-24] MEDS: Pramipexole Di-HCl 0.5 MG Tablet PO (10:01)
[2019-08-24] MEDS: lamoTRIgine 100 MG Tablet PO ×2 (10:01→21:44)
[2019-08-24] MEDS: Pregabalin 75 MG Capsule 225 MG PO ×2 (10:01→21:44)
[2019-08-24] MEDS: Sertraline 50 MG Tablet PO (10:02)
[2019-08-24] MEDS: Enoxaparin 40 MG/0.4 ML Syringe SC (10:03)
[2019-08-24 10:05] LABS: Bedside Glucose 187 mg/dL (70-110)
[2019-08-24] MEDS: Glucerna Shake 120 ML LIQUID PO (10:07)
--- NOTE | 2019-08-24 10:51 | CASEMGMT ---
Addendum entered by Mckayla Nam 08/24/19 12:53: Received return call from Kimmie at [place] and they can accept patient. SW to follow for d/c to [place]. Mckayla CHINCHILLA Original Note: SW was told patient would like placement. SW met with patient and she confirmed she would like to go to [place]. SW told her SW will make the referral. SW called [place] with referral and also faxed information. Await their response. Mckayla CHINCHILLA
--- NOTE | 2019-08-24 12:25 | PCM.PROGNOTE ---
<Ashli Baldwin - Last Filed: 08/24/19 12:36> Patient Problems: Active and Suspected Problems (Last Reviewed 07/18/19 @ 21:19 by Jacques Santos MD) Sepsis (Acute) Diabetic infection of right foot (Acute) UTI (urinary tract infection) (Acute) Ulcer of right foot (Acute) Toe osteomyelitis, right (Acute) Subjective: Patient seen and examined. Continues to report lower back and bilateral upper leg pain. Patient states she had lumbar MRI completed recently at [facility] and has not yet received results. Otherwise denies current complaints. Agreeable to SNF at discharge. - Physical Exam Vitals/I&O's: Vital Signs Temp Pulse Resp BP Pulse Ox 98.5 F 83 17 171/78 H 97 08/24/19 09:00 08/24/19 09:00 08/24/19 09:00 08/24/19 09:00 08/24/19 09:00 Oxygen Flow Rate (L/min) 3 Oxygen Delivery Method Room Air Weight: 267 lb 10.259 oz Body Mass Index (BMI) 41.0 Finger Stick Blood Glucose 182 Intake and Output for Last 24 Hours 08/22/19 08/23/19 08/24/19 23:59 23:59 23:59 Intake Total 3215.25 / 3215.25 2862.75 / 2862.75 1297.83 / 1297.83 Output Total 1133 / 1133 1050 / 1350 2400 / 2400 Balance 2082.25 / 2082.25 1812.75 / 1512.75 -1102.17 / -1102.17 General: Alert, Oriented x3, Cooperative HEENT: Atraumatic, PERRLA, EOMI, Normocephalic Neck: Supple, No JVD, Negative Carotid Bruits Lungs: Clear to auscultation, Normal air movement Cardiovascular: Regular rate, Regular Rhythm, Normal S1, Normal S2, No murmurs Abdomen: Bowel Sounds Present, Soft, Non Tender, Non-Distended, Obese Extremities: No clubbing, No cyanosis, No edema, Capillary Refill Less than 3 Seconds Skin: No rashes, No breakdown, - - Status post right second toe amputation, postop dressing intact. Musculoskeletal: No Tenderness to Palpation of Joints or Extremities Neurological: Cranial nerves II-XII grossly intact Psych/Mental Status: Normal Affect, Appropriate Microbiology Past 72 Hours 08/22/19 Unknown Tissue - Right Foot Gram Stain - Final 08/22/19 Unknown Tissue - Right Foot Wound Culture - Preliminary Beta streptococcus 08/22/19 Unknown Bone - Right Foot Gram Stain - Final 08/22/19 Unknown Bone - Right Foot Wound Culture - Preliminary Beta streptococcus 08/22/19 Unknown Bone - Right Foot Gram Stain - Final 08/22/19 Unknown Bone - Right Foot Wound Culture - Preliminary No growth-Final to follow 08/22/19 Unknown Bone - Right Foot Anaerobic Culture - Preliminary No growth in 48 hours. 08/21/19 21:10 Wound - Toe Gram Stain - Final 08/21/19 21:10 Wound - Toe Wound Culture - Final Streptococcus group B Coag Negative Staph 08/21/19 15:45 Urine Catheter - Catheter Urine Culture - Final Presumptive E. coli Laboratory Results 08/23/19 16:38: POC Glucose 105 08/23/19 20:25: Vancomycin Trough 16.6 H 08/23/19 20:49: POC Glucose 239 H 08/24/19 04:55: WBC 9.2, RBC 4.02 L, Hgb 11.0 L, Hct 33.9 L, MCV 84.3, MCH 27.4, MCHC 32.4, RDW Std Deviation 43.8, RDW Coeff of Be 14.2, Plt Count 261, MPV 9.9 08/24/19 04:55: Sodium 137, Potassium 4.0, Chloride 107, Carbon Dioxide 26.0, Anion Gap 4 L, BUN 10, Creatinine 1.01, Estim Creat Clear Calc 52.68, Est GFR (MDRD) Af Amer 71, Est GFR (MDRD) Non-Af 59 L, BUN/Creatinine Ratio 9.9 L, Glucose 223 H, Calcium 8.1 L 08/24/19 06:59: POC Glucose 236 H 08/24/19 09:53: POC Glucose 187 H Current Medications Acetaminophen (Tylenol) 650 mg PO Q6H PRN PRN PRN Reason: Non-cardiac pain (-05/28) Al Hydroxide/Mg Hydroxide (Mylanta Ii) 15 - 30 ml PO Q4H PRN PRN PRN Reason: INDIGESTION Albuterol Sulfate (Ventolin Aerosols) 2.5 mg INHALATION Q2H PRN PRN PRN Reason: dyspnea, wheezing Allopurinol (Zyloprim) 100 mg PO QHS [facility] Last Admin: 08/23/19 21:00 Dose: 100 mg Documented by: Aspirin (Aspirin, Baby) 81 mg PO DAILY@0800 [facility] Last Admin: 08/24/19 09:59 Dose: 81 mg Documented by: Atorvastatin Calcium (Lipitor) 20 mg PO QHS [facility] Last Admin: 08/23/19 20:59 Dose: 20 mg Documented by: Carvedilol (Coreg) 6.25 mg PO BID [facility] Last Admin: 08/24/19 09:59 Dose: 6.25 mg Documented by: Enoxaparin Sodium (Lovenox) 40 mg SC DAILY [facility] Last Admin: 08/24/19 10:03 Dose: 40 mg Documented by: Furosemide (Lasix) 40 mg PO DAILY [facility] Last Admin: 08/24/19 10:01 Dose: 40 mg Documented by: Glucagon () 1 mg IM .X1 PRN PRN Reason: Hypoglycemia Haloperidol (Haldol) 1 mg PO BID [facility] Last Admin: 08/24/19 10:00 Dose: 1 mg Documented by: Hydralazine HCl (Apresoline Iv) 10 mg IV Q4H PRN PRN PRN Reason: SBP > 160 Last Admin: 08/22/19 19:08 Dose: 10 mg Documented by: [facility] Last Admin: 08/24/19 09:59 Dose: 200 mg Documented by: Sodium Chloride () 1,000 mls @ 100 mls/hr IV .Q10H [facility] Last Infusion: 08/24/19 07:10 Dose: 100 mls/hr Documented by: Vancomycin IV Pharmacy to Dose (1 ea/ Sodium Chloride) 500 mls @ 250 mls/hr IV X1 PRN; Protocol PRN Reason: Rx to Dose Piperacillin Sod/Tazobactam (Sod 3.375 gm/ Sodium Chloride) 50 mls @ 12.5 mls/hr IV Q8 [facility] Last Admin: 08/24/19 05:48 Dose: 12.5 mls/hr Documented by: Sodium Chloride () 250 mls @ 15 mls/hr IV .[id number] PRN PRN Reason: Saline Flush Last Infusion: 08/24/19 04:10 Dose: 0 mls/hr Documented by: Sodium Chloride () 250 mls @ 15 mls/hr IV .[id number] PRN PRN Reason: Additional IVPB Infusion Dextrose (Dextrose 10%-Water) 250 mls @ 999 mls/hr IV .Q16M PRN; Protocol PRN Reason: HYPOGLYCEMIA Vancomycin HCl (Vancomycin) 1,000 mg in 200 mls @ 200 mls/hr IV Q12H [facility] Last Infusion: 08/24/19 07:10 Dose: Infused Documented by: Insulin Glargine (Lantus ([facility])) 10 units SC QHS [facility] Last Admin: 08/23/19 21:13 Dose: 10 units Documented by: Insulin Human Lispro (Humalog Kwikpen ([facility])) 0 unit SC TIDAC [facility]; Protocol Last Admin: 08/24/19 07:04 Dose: 3 units Documented by: Insulin Human Regular (Humulin R U-500 ([facility])) 35 units SC BIDAC [facility] Last Admin: 08/24/19 09:57 Dose: 35 u Documented by: Lamotrigine (Lamictal) 100 mg PO BID [facility] Last Admin: 08/24/19 10:01 Dose: 100 mg Documented by: Levothyroxine Sodium (Synthroid) 75 mcg PO DAILY@0600 [facility] Last Admin: 08/24/19 05:48 Dose: 75 mcg Documented by: Losartan Potassium (Cozaar) 75 mg PO DAILY [facility] Last Admin: 08/24/19 09:59 Dose: 75 mg Documented by: Magnesium Hydroxide (Milk Of Magnesia) 30 ml PO DAILY PRN PRN Reason: Constipation Melatonin (Melatonin) 3 mg PO QHS PRN PRN PRN Reason: INSOMNIA Last Admin: 08/21/19 23:07 Dose: 3 mg Documented by: Montelukast Sodium (Singulair) 10 mg PO DAILY [facility] Last Admin: 08/24/19 10:01 Dose: 10 mg Documented by: Morphine Sulfate () 2 - 4 mg IV Q4H PRN PRN PRN Reason: Pain Score 1-10/10 Last Admin: 08/24/19 09:47 Dose: 2 mg Documented by: Nutritional Formula (Lactose Free) (Glucerna Shake) 120 ml PO 4X/DAY [facility] Last Admin: 08/24/19 10:07 Dose: 120 ml Documented by: Ondansetron HCl (Zofran) 4 mg IV Q8H PRN PRN PRN Reason: NAUSEA/VOMITING Oxycodone HCl (Oxyir) 10 mg PO Q4H PRN PRN PRN Reason: Pain Score 6-10/10 Last Admin: 08/24/19 06:09 Dose: 10 mg Documented by: Potassium Chloride (K-Dur) 20 meq PO DAILYCM [facility] Last Admin: 08/24/19 10:07 Dose: 20 meq Documented by: Pramipexole Dihydrochloride (Mirapex) 0.5 mg PO DAILY [facility] Last Admin: 08/24/19 10:01 Dose: 0.5 mg Documented by: Pregabalin (Lyrica) 225 mg PO BID [facility] Last Admin: 08/24/19 10:01 Dose: 225 mg Documented by: Promethazine HCl (Phenergan) 6.25 mg IV Q4H PRN PRN PRN Reason: NAUSEA/VOMITING Sertraline HCl (Zoloft) 50 mg PO DAILY [facility] Last Admin: 08/24/19 10:02 Dose: 50 mg Documented by: Sodium Chloride () 10 - 40 ml IV UD PRN PRN Reason: SALINE FLUSH Last Admin: 08/23/19 15:29 Dose: 20 ml Documented by: Sodium Hypochlorite (Dakins Solution 0.25% (1/2 Strength)) 1 applic TOPICAL BID [facility]; Protocol Last Admin: 08/23/19 20:57 Dose: 1 applicatio Documented by: Medical Necessity - Tobacco Use Smoking Status: Never smoker Tobacco Use: Non-smoker Assessment/Plan All Active Problems (Last Reviewed 07/18/19 @ 21:19 by Jacques Santos MD) Sepsis (Acute) Diabetic infection of right foot (Acute) UTI (urinary tract infection) (Acute) Ulcer of right foot (Acute) Toe osteomyelitis, right (Acute) 1. Right second toe ulceration with cellulitis and suspected osteomyelitis status post right second toe amputation by Dr. Jernigan 08/22/2019. Continue IV Zosyn and IV vancomycin pending cultures. MRSA/MSSA PCR negative. Dressing changes per podiatry orders. ID consultation. 2. Acute E. coli UTI-urinalysis on admission with 4+ bacteria and positive nitrite. Urine culture growing E. coli greater than 100,000 colony count. On IV Zosyn as noted above. 3. Type 2 diabetes mellitus with gastroparesis-hold oral regimen. Accu-Cheks ACHS with SSI. Hemoglobin A1c 8.5%. 4. Seizure disorder-continue home lamotrigine regimen. 5. Rheumatoid arthritis-continue Plaquenil regimen. 6. Chronic pain syndrome, neuropathy, fibromyalgia-continue Lyrica regimen. PRN pain regimen. Records per [facility] MRI of lumbar spine 08/18/2019 demonstrated unchanged grade 1 anterolisthesis of L4 on L5. L3-L4 symmetric bulge and facet arthropathy without stenosis. L4-L5 disc uncovering, facet arthropathy and ligamentum flavum thickening causing mild central spinal stenosis and narrows both lateral recesses. Mild right foraminal stenosis. Bilateral small facet joint effusions present. No other significant findings. Recommend outpatient follow-up with neuro/spine surgery. 7. Anxiety/depression/questionable bipolar disorder-continue Haldol, sertraline regimen. 8. Chronic diastolic CHF, history of Takotsubo cardiomyopathy-continue aspirin, statin, beta-jenny, ARB, Lasix. 9. Hypertension-continue home regimen with PRN hydralazine for systolic blood pressure greater than 180. 10. Hyperlipidemia-continue statin. 11. Gout-continue allopurinol regimen. 12. Hypothyroidism-continue Synthroid regimen. 13. Restless leg syndrome-continue home Requip regimen. 14. Iron deficiency anemia-stable, trend CBC. DVT prophylaxis-Lovenox, SCDs Discharge planning: SNF pending pre-CERT and wound culture and sensitivities. This patient was seen by JONATAN Ley under the supervision of Dr. Huertas. <Fina Huertas E - Last Filed: 08/24/19 13:00> - Physical Exam Vitals/I&O's: Vital Signs Temp Pulse Resp BP Pulse Ox 98.5 F 83 17 171/78 H 97 08/24/19 09:00 08/24/19 09:00 08/24/19 09:00 08/24/19 09:00 08/24/19 09:00 Oxygen Flow Rate (L/min) 3 Oxygen Delivery Method Room Air Weight: 267 lb 10.259 oz Body Mass Index (BMI) 41.0 Finger Stick Blood Glucose 182 Intake and Output for Last 24 Hours 08/22/19 08/23/19 08/24/19 23:59 23:59 23:59 Intake Total 3215.25 / 3215.25 2862.75 / 2862.75 1297.83 / 1297.83 Output Total 1133 / 1133 1050 / 1350 2400 / 2400 Balance 2082.25 / 2082.25 1812.75 / 1512.75 -1102.17 / -1102.17 Microbiology Past 72 Hours 08/21/19 17:20 Blood Culture (Wb) - Anticubital Left Blood Culture - Preliminary No growth in 48 hours. 08/21/19 17:30 Blood Culture (Wb) - Anticubital Left Blood Culture - Preliminary No growth in 48 hours. 08/22/19 Unknown Tissue - Right Foot Gram Stain - Final 08/22/19 Unknown Tissue - Right Foot Wound Culture - Preliminary Beta streptococcus 08/22/19 Unknown Bone - Right Foot Gram Stain - Final 08/22/19 Unknown Bone - Right Foot Wound Culture - Preliminary Beta streptococcus 08/22/19 Unknown Bone - Right Foot Gram Stain - Final 08/22/19 Unknown Bone - Right Foot Wound Culture - Preliminary No growth-Final to follow 08/22/19 Unknown Bone - Right Foot Anaerobic Culture - Preliminary No growth in 48 hours. 08/21/19 21:10 Wound - Toe Gram Stain - Final 08/21/19 21:10 Wound - Toe Wound Culture - Final Streptococcus group B Coag Negative Staph 08/21/19 15:45 Urine Catheter - Catheter Urine Culture - Final Presumptive E. coli Laboratory Results 08/22/19 06:33: Diff Path Review Reviewed 08/23/19 16:38: POC Glucose 105 08/23/19 20:25: Vancomycin Trough 16.6 H 08/23/19 20:49: POC Glucose 239 H 08/24/19 04:55: WBC 9.2, RBC 4.02 L, Hgb 11.0 L, Hct 33.9 L, MCV 84.3, MCH 27.4, MCHC 32.4, RDW Std Deviation 43.8, RDW Coeff of Be 14.2, Plt Count 261, MPV 9.9 08/24/19 04:55: Sodium 137, Potassium 4.0, Chloride 107, Carbon Dioxide 26.0, Anion Gap 4 L, BUN 10, Creatinine 1.01, Estim Creat Clear Calc 52.68, Est GFR (MDRD) Af Amer 71, Est GFR (MDRD) Non-Af 59 L, BUN/Creatinine Ratio 9.9 L, Glucose 223 H, Calcium 8.1 L 08/24/19 06:59: POC Glucose 236 H 08/24/19 09:53: POC Glucose 187 H Current Medications Acetaminophen (Tylenol) 650 mg PO Q6H PRN PRN PRN Reason: Non-cardiac pain (-05/28) Al Hydroxide/Mg Hydroxide (Mylanta Ii) 15 - 30 ml PO Q4H PRN PRN PRN Reason: INDIGESTION Albuterol Sulfate (Ventolin Aerosols) 2.5 mg INHALATION Q2H PRN PRN PRN Reason: dyspnea, wheezing Allopurinol (Zyloprim) 100 mg PO QHS [facility] Last Admin: 08/23/19 21:00 Dose: 100 mg Documented by: Aspirin (Aspirin, Baby) 81 mg PO DAILY@0800 [facility] Last Admin: 08/24/19 09:59 Dose: 81 mg Documented by: Atorvastatin Calcium (Lipitor) 20 mg PO QHS [facility] Last Admin: 08/23/19 20:59 Dose: 20 mg Documented by: Carvedilol (Coreg) 6.25 mg PO BID [facility] Last Admin: 08/24/19 09:59 Dose: 6.25 mg Documented by: Enoxaparin Sodium (Lovenox) 40 mg SC DAILY [facility] Last Admin: 08/24/19 10:03 Dose: 40 mg Documented by: Furosemide (Lasix) 40 mg PO DAILY [facility] Last Admin: 08/24/19 10:01 Dose: 40 mg Documented by: Glucagon () 1 mg IM .X1 PRN PRN Reason: Hypoglycemia Haloperidol (Haldol) 1 mg PO BID [facility] Last Admin: 08/24/19 10:00 Dose: 1 mg Documented by: Hydralazine HCl (Apresoline Iv) 10 mg IV Q4H PRN PRN PRN Reason: SBP > 160 Last Admin: 08/22/19 19:08 Dose: 10 mg Documented by: [facility]oqu[facility] Last Admin: 08/24/19 09:59 Dose: 200 mg Documented by: Sodium Chloride () 1,000 mls @ 100 mls/hr IV .Q10H [facility] Last Infusion: 08/24/19 07:10 Dose: 100 mls/hr Documented by: Vancomycin IV Pharmacy to Dose (1 ea/ Sodium Chloride) 500 mls @ 250 mls/hr IV X1 PRN; Protocol PRN Reason: Rx to Dose Piperacillin Sod/Tazobactam (Sod 3.375 gm/ Sodium Chloride) 50 mls @ 12.5 mls/hr IV Q8 [facility] Last Admin: 08/24/19 05:48 Dose: 12.5 mls/hr Documented by: Sodium Chloride () 250 mls @ 15 mls/hr IV .[id number] PRN PRN Reason: Saline Flush Last Infusion: 08/24/19 04:10 Dose: 0 mls/hr Documented by: Sodium Chloride () 250 mls @ 15 mls/hr IV .[id number] PRN PRN Reason: Additional IVPB Infusion Dextrose (Dextrose 10%-Water) 250 mls @ 999 mls/hr IV .Q16M PRN; Protocol PRN Reason: HYPOGLYCEMIA Vancomycin HCl (Vancomycin) 1,000 mg in 200 mls @ 200 mls/hr IV Q12H [facility] Last Infusion: 08/24/19 07:10 Dose: Infused Documented by: Insulin Glargine (Lantus ([facility])) 10 units SC QHS [facility] Last Admin: 08/23/19 21:13 Dose: 10 units Documented by: Insulin Human Lispro (Humalog Kwikpen ([facility])) 0 unit SC TIDAC [facility]; Protocol Last Admin: 08/24/19 07:04 Dose: 3 units Documented by: Insulin Human Regular (Humulin R U-500 ([facility])) 35 units SC BIDAC [facility] Last Admin: 08/24/19 09:57 Dose: 35 u Documented by: Lamotrigine (Lamictal) 100 mg PO BID [facility] Last Admin: 08/24/19 10:01 Dose: 100 mg Documented by: Levothyroxine Sodium (Synthroid) 75 mcg PO DAILY@0600 [facility] Last Admin: 08/24/19 05:48 Dose: 75 mcg Documented by: Losartan Potassium (Cozaar) 75 mg PO DAILY [facility] Last Admin: 08/24/19 09:59 Dose: 75 mg Documented by: Magnesium Hydroxide (Milk Of Magnesia) 30 ml PO DAILY PRN PRN Reason: Constipation Melatonin (Melatonin) 3 mg PO QHS PRN PRN PRN Reason: INSOMNIA Last Admin: 08/21/19 23:07 Dose: 3 mg Documented by: Montelukast Sodium (Singulair) 10 mg PO DAILY [facility] Last Admin: 08/24/19 10:01 Dose: 10 mg Documented by: Morphine Sulfate () 2 - 4 mg IV Q4H PRN PRN PRN Reason: Pain Score 1-10/10 Last Admin: 08/24/19 09:47 Dose: 2 mg Documented by: Nutritional Formula (Lactose Free) (Glucerna Shake) 120 ml PO 4X/DAY [facility] Last Admin: 08/24/19 10:07 Dose: 120 ml Documented by: Ondansetron HCl (Zofran) 4 mg IV Q8H PRN PRN PRN Reason: NAUSEA/VOMITING Oxycodone HCl (Oxyir) 10 mg PO Q4H PRN PRN PRN Reason: Pain Score 6-10/10 Last Admin: 08/24/19 06:09 Dose: 10 mg Documented by: Potassium Chloride (K[facility]Dur) [facility] Last Admin: 08/24/19 10:07 Dose: 20 meq Documented by: Pramipexole Dihydrochloride (Mirapex) 0.5 mg PO DAILY [facility] Last Admin: 08/24/19 10:01 Dose: 0.5 mg Documented by: Pregabalin (Lyrica) 225 mg PO BID [facility] Last Admin: 08/24/19 10:01 Dose: 225 mg Documented by: Promethazine HCl (Phenergan) 6.25 mg IV Q4H PRN PRN PRN Reason: NAUSEA/VOMITING Sertraline HCl (Zoloft) 50 mg PO DAILY [facility] Last Admin: 08/24/19 10:02 Dose: 50 mg Documented by: Sodium Chloride () 10 - 40 ml IV UD PRN PRN Reason: SALINE FLUSH Last Admin: 08/23/19 15:29 Dose: 20 ml Documented by: Sodium Hypochlorite (Dakins Solution 0.25% (1/2 Strength)) 1 applic TOPICAL BID [facility]; Protocol Last Admin: 08/23/19 20:57 Dose: 1 applicatio Documented by: Assessment/Plan Hospitalist note: I am seeing this patient in conjunction with Ashli Baldwin. I independently seen and examined the patient. Progress note above, laboratory data and imaging studies reviewed and I agree with the above treatment plan. Patient seen and examined. She complains of chronic bilateral thigh pain for which she had MRI lumbar spine done at outside facility. Pain of the right foot is manageable. Blood pressure/elevated, other vital signs are stable. She has been afebrile. - Physical Exam General: Alert, Oriented x3, Cooperative, No apparent distress. HEENT: Atraumatic, PERRLA, EOMI. Neck: Supple, No JVD, Negative Carotid Bruits, Trachea Midline, Thyroid Normal. Lungs: Clear to auscultation, Normal air movement, No rhonchi, No wheeze, No rales. Cardiovascular: Regular rate, Regular Rhythm, Normal S1, Normal S2, PMI Normal. Abdomen: Bowel Sounds Present, Soft, Non Tender, Non-Distended, No Hepato-splenomegaly. Extremities: No clubbing, No cyanosis, No edema. Right foot is dressed. Skin: No rashes, No breakdown Neurological: Cranial nerves are intact, neuro grossly intact Assessment and plan: #1 acute diabetic right foot cellulitis/infected wound/second right toe osteomyelitis: Status post amputation, postoperative day 2. She is on IV vancomycin and Zosyn. She has been afebrile, no leukocytosis. Wound culture revealed group B streptococcus. Blood culture showed no growth in 48 hours. Plan to consult infectious disease, continue same treatment. Patient will need placement to [facility]. #2 E. coli acute cystitis: On IV Zosyn. Urine culture reviewed, E. coli is sensitive to Zosyn. #3 chronic pain syndrome/chronic bilateral thigh pain: She is on Lyrica and she had MRI lumbar spine done few days ago at outside facility. Findings reviewed. Plan for pain control, follow-up with neurosurgery as outpatient. #4 other chronic medical problems: Stable, continue current medications as above. This note was generated with [employer] software. It may contain incorrect words, spelling, and punctuation that were not noted in checking the note before signing. Code Visit Inpatient E&M: 70970 Subs Hosp L2
[2019-08-24 12:36] LABS: Pathologist Review Reviewed
[2019-08-24] MEDS: Ondansetron 4 MG/2 ML Vial IV (13:42)
[2019-08-24] MEDS: Ketorolac 15 MG/ML Vial IV (13:43)
[2019-08-24 14:05] LABS: Bedside Glucose 78 mg/dL (70-110)
--- NOTE | 2019-08-24 14:57 | PCM.HP.ID ---
Problem List (1) Toe osteomyelitis, right Status: Acute Reason for Consult: osteo Consulted by: Dr. Huertas History of Present Illness: The patient is a 63 year old F with h/o DM, presented from [facility] with acute onset of confusion, nausea, vomiting, worsened R 1st toe ulceration and drainage. Had progressive R 1st toe for several weeks; denies any inciting trauma, denies neuropathy, denies any fever. Taken to ED, started on vanc/zosyn, taken to OR 08/[address] Jernigan for toe amputation. Pain controlled. Full ROS performed and neg except as noted above. Denies any dysuria. Has catheter in currently. - Medical History Past Medical History (Chronic Problems): Chronic Problems (Last Updated 08/24/19 @ 12:53 by Fina Huertas MD) Takotsubo cardiomyopathy (Chronic) Type 2 diabetes mellitus with diabetic polyneuropathy (Chronic) NSTEMI (non-ST elevated myocardial infarction) (Chronic) Fibromyalgia (Chronic) Type 2 diabetes mellitus (Chronic) Diabetic gastroparesis (Chronic) GERD (gastroesophageal reflux disease) (Chronic) Seizure disorder (Chronic) Paroxysmal atrial fibrillation (Chronic) Chronic pain syndrome (Chronic) Takotsubo cardiomyopathy (Chronic) Iron deficiency anemia (Chronic) Depression (Chronic) Morbid obesity with BMI of 40.0-44.9, adult (Chronic) HLD (hyperlipidemia) (Chronic) Benign essential HTN (Chronic) Allergies/Adverse Reactions: Allergies ciprofloxacin [From Cipro] Allergy (Verified 08/21/19 14:24) Shortness of breath ciprofloxacin HCl [From Cipro] Allergy (Verified 08/21/19 14:24) Shortness of breath cyclobenzaprine [From Flexeril] Allergy (Verified 08/21/19 14:24) Rash cyclobenzaprine HCl [From Flexeril] Allergy (Verified 08/21/19 14:24) Rash ketorolac tromethamine [From Toradol] Allergy (Verified 08/21/19 14:24) Chest tightness sulfamethoxazole [From Bactrim] Allergy (Verified 08/21/19 14:24) Itching trimethoprim [From Bactrim] Allergy (Verified 08/21/19 14:24) Itching metformin Adverse Reaction (Verified 08/21/19 14:24) Other headache valacyclovir HCl [From Valtrex] Adverse Reaction (Verified 08/21/19 14:24) Other Home Medications: Ambulatory Orders Medication Instructions Recorded Levothyroxine Sodium 75 mcg PO DAILY 09/17/18 Simvastatin 40 mg PO QHS 09/17/18 Hydroxychloroquine [Plaquenil] 200 mg PO BIDCM 11/30/18 Montelukast Sodium 10 mg PO DAILY 11/30/18 allopurinol 100 mg tablet 100 mg PO QHS tab 03/30/19 Insulin Regular, Human [Humulin R 35 unit SQ BID 04/11/19 U-500 Kwikpen] Hydrocodone/Acetaminophen 1 ea PO Q6H PRN PRN 07/18/19 [Hydrocodon-Acetaminophen 5-325] Menthol [Biofreeze] 1 applic TP BID PRN 07/18/19 Aspirin 81 mg PO DAILY 08/16/19 Furosemide [Lasix] 40 mg PO DAILY 08/16/19 Haloperidol 1 mg PO BID 08/16/19 Ropinirole HCl 1 mg PO DAILY 08/16/19 Sertraline HCl [Zoloft] 50 mg PO DAILY 08/16/19 Candesartan Cilexetil 16 mg PO DAILY 08/20/19 Carvedilol [Coreg (Beta Maria Teresa)] 6.25 mg PO BID 08/20/19 Insulin Glargine,Hum.rec.anlog 10 unit SQ DAILY 08/20/19 [Toujeo Solostar] Lamotrigine 100 mg PO BID 08/20/19 Pregabalin [Lyrica] 225 mg PO BID 08/20/19 - Social History SMOKING STATUS:: Never smoker Vital Signs Temp Pulse Resp BP Pulse Ox 98.5 F 72 17 171/78 H 97 08/24/19 09:00 08/24/19 11:23 08/24/19 09:00 08/24/19 09:00 08/24/19 09:00 Oxygen Flow Rate (L/min) 3 Oxygen Delivery Method Room Air Weight: 121.4 kg Body Mass Index (BMI) 41.0 Finger Stick Blood Glucose 182 Microbiology Past 72 Hours 08/21/19 17:20 Blood Culture - Preliminary Blood Culture (Wb) - Anticubital Left No growth in 48 hours. 08/21/19 17:30 Blood Culture - Preliminary Blood Culture (Wb) - Anticubital Left No growth in 48 hours. 08/22/19 Unknown Gram Stain - Final Tissue - Right Foot Wound Culture - Preliminary Beta streptococcus 08/22/19 Unknown Gram Stain - Final Bone - Right Foot Wound Culture - Preliminary Beta streptococcus 08/22/19 Unknown Gram Stain - Final Bone - Right Foot Wound Culture - Preliminary No growth-Final to follow Anaerobic Culture - Preliminary No growth in 48 hours. 08/21/19 21:10 Gram Stain - Final Wound - Toe Wound Culture - Final Streptococcus group B Coag Negative Staph 08/21/19 15:45 Urine Culture - Final Urine Catheter - Catheter Presumptive E. coli Laboratory Tests Past 24 Hrs 08/22/19 08/23/19 08/24/19 06:33 20:25 04:55 WBC 9.2 RBC 4.02 L Hgb 11.0 L Hct 33.9 L MCV 84.3 MCH 27.4 MCHC 32.4 RDW Std Deviation 43.8 RDW Coeff of Be 14.2 Plt Count 261 MPV 9.9 Diff Path Review Reviewed Sodium Potassium Chloride Carbon Dioxide Anion Gap BUN Creatinine Estim Creat Clear Calc Est GFR (MDRD) Af Amer Est GFR (MDRD) Non-Af BUN/Creatinine Ratio Glucose Calcium Vancomycin Trough 16.6 H 08/24/19 04:55 WBC RBC Hgb Hct MCV MCH MCHC RDW Std Deviation RDW Coeff of Be Plt Count MPV Diff Path Review Sodium 137 Potassium 4.0 Chloride 107 Carbon Dioxide 26.0 Anion Gap 4 L BUN 10 Creatinine 1.01 Estim Creat Clear Calc 52.68 Est GFR (MDRD) Af Amer 71 Est GFR (MDRD) Non-Af 59 L BUN/Creatinine Ratio 9.9 L Glucose 223 H Calcium 8.1 L Vancomycin Trough - Other Studies Radiology: [] reviewed Other Studies: [] Route of nutrition/ use of supplements: [] Nutritional Intake: [] IV Site: [] Robb Catheter: [] - Physical Exam General: Alert, Cooperative, No apparent distress HEENT: Atraumatic, PERRLA, EOMI Neck: Supple, No Nodes Lungs: Clear to auscultation, Normal air movement Cardiovascular: Regular rate, Regular Rhythm Abdomen: Soft, Non Tender, Non-Distended Extremities: Edema Skin: Ulcer/ Wound - foot wrapped IV Site: Peripheral, without redness Musculoskeletal: No Tenderness to Palpation of Joints or Extremities - Assessment/Plan Antibiotics: [] Assessment/Plan: [] Active and Suspected Problems (Last Updated 08/24/19 @ 12:53 by Fina Huretas MD) Sepsis (Acute) Diabetic infection of right foot (Acute) UTI (urinary tract infection) (Acute) Ulcer of right foot (Acute) Toe osteomyelitis, right (Acute) R 1st toe osteo - now s/p amputation by Dr. Jernigan 08/22/19. Clearance bone cx neg so far. On vanc/zosyn. Will narrow to ceftriaxone, she should not need to leave on iv abx. ecoli bacteruria - UA neg, asymptomatic. Not consistent with true infection, covered by ceftriaxone. Will follow, thank you, d/w counseling case manager.
--- NOTE | 2019-08-24 15:22 | CASEMGMT ---
Patient has a Healthcare POA and Healthcare LW on file at [facility]. Mckayla SNEED ECONOMIC SPECIALIST
[2019-08-24] MEDS: DAKIN'S SOL HALF STRENGTH (=0.25%) 1 APPLIC TOPICAL (16:04)
[2019-08-24 16:26] LABS: Bedside Glucose 74 mg/dL (70-110)
--- NOTE | 2019-08-24 19:56 | PN_ITS ---
Patient Problems: Active and Suspected Problems (Last Updated 08/24/19 @ 12:53 by Fina Huertas MD) Sepsis (Acute) Diabetic infection of right foot (Acute) UTI (urinary tract infection) (Acute) Ulcer of right foot (Acute) Toe osteomyelitis, right (Acute) Subjective: Patient was seen this afternoon for follow up on right foot, s/p 2nd toe debridement/amputation. No new complaints. No complaints of fever, chills, nausea or vomiting. - Physical Exam Vitals/I&O's: Vital Signs Temp Pulse Resp BP Pulse Ox 98.5 F 72 16 130/66 H 97 08/24/19 15:00 08/24/19 19:00 08/24/19 15:00 08/24/19 15:00 08/24/19 15:00 Oxygen Flow Rate (L/min) 3 Oxygen Delivery Method Room Air Weight: 121.4 kg Body Mass Index (BMI) 41.0 Finger Stick Blood Glucose 182 Intake and Output for Last 24 Hours 08/22/19 08/23/19 08/24/19 23:59 23:59 23:59 Intake Total 3215.25 / 3215.25 2862.75 / 2862.75 3291.16 / 3291.16 Output Total 1133 / 1133 1050 / 1350 5450 / 5450 Balance 2082.25 / 2082.25 1812.75 / 1512.75 -2158.84 / -2158.84 General: Alert, Oriented x3, Cooperative, No apparent distress Extremities: Capillary Refill Less than 3 Seconds, No Calf Tenderness, - - Mi nimal residual cellulitis to the dorsal forefoot, right with open wound down to the 2nd metatarsal head with healthy viable tissue and margins, no purulence, no drainage, no fluctuance, no visible abscess, no maloder, no necrosis - healing well at this time. No new ulcerations or break down to the foot or ankle bilateral. Temperature normal to the foot/ankle bilateral. Sensation decreased c/w peripheral neuropathy to the foot bilateral. Musculoskeletal: No Tenderness to Palpation of Joints or Extremities Microbiology Past 72 Hours 08/21/19 17:20 Blood Culture (Wb) - Anticubital Left Blood Culture - Preliminary No growth in 48 hours. 08/21/19 17:30 Blood Culture (Wb) - Anticubital Left Blood Culture - Pr eliminary No growth in 48 hours. 08/22/19 Unknown Tissue - Right Foot Gram Stain - Final 08/22/19 Unknown Tissue - Right Foot Wound Culture - Preliminary Beta streptococcus 08/22/19 Unknown Bone - Right Foot Gram Stain - Final 08/22/19 Unknown Bone - Right Foot Wound Culture - Preliminary Beta streptococcus 08/22/19 Unknown Bone - Right Foot Gram Stain - Final 08/22/19 Unknown Bone - Right Foot Wound Culture - Preliminary No growth-Final to follow 08/22/19 Unknown Bone - Right Foot Anaerobic Culture - Preliminary No growth in 48 hours. 08/21/19 21:10 Wound - Toe Gram Stain - Final 08/21/19 21:10 Wound - Toe Wound Culture - Final Streptococcus group B Coag Negative Staph 08/21/19 15:45 Urine Catheter - Catheter Urine Culture - Final Presumptive E. coli Laboratory Results 08/22/19 06:33: Diff Path Review Reviewed 08/23/19 20:25: Vancomycin Trough 16.6 H 08/23/19 20:49: POC Glucose 239 H 08/24/19 04:55: WBC 9.2, RBC 4.02 L, Hgb 11.0 L, Hct 33.9 L, MCV 84.3, MCH 27.4, MCHC 32.4, RDW Std Deviation 43.8, RDW Coeff of Be 14.2, Plt Count 261, MPV 9.9 08/24/19 04:55: Sodium 137, Potassium 4.0, Chloride 107, Carbon Dioxide 26.0, Anion Gap 4 L, BUN 10, Creatinine 1.01, Estim Creat Clear Calc 52.68, Est GFR (MDRD) Af Amer 71, Est GFR (MDRD) Non-Af 59 L, BUN/Creatinine Ratio 9.9 L, Glucose 223 H, Calcium 8.1 L 08/24/19 06:59: POC Glucose 236 H 08/24/19 09:53: POC Glucose 187 H 08/24/19 13:54: POC Glucose 78 08/24/19 16:16: POC Glucose 74 Current Medications Acetaminophen (Tylenol) 650 mg PO Q6H PRN PRN PRN Reason: Non-cardiac pain (4-05/28) Al Hydroxide/Mg Hydroxide (Mylanta Ii) 15 - 30 ml PO Q4H PRN PRN PRN Reason: INDIGESTION Albuterol Sulfate (Ventolin Aerosols) 2.5 mg INHALATION Q2H PRN PRN PRN Reason: dyspnea, wheezing Allopurinol (Zyloprim) 100 mg PO QHS [facility] Last Admin: 08/23/19 21:00 Dose: 100 mg Documented by: Aspirin (Aspirin, Baby) 81 mg PO DAILY@0800 [facility] Last Admin: 08/24/19 09:59 Dose: 81 mg Documented by: Atorvastatin Calcium (Lipitor) 20 mg PO QHS [facility] Last Admin: 08/23/19 20:59 Dose: 20 mg Documented by: Carvedilol (Coreg) 6.25 mg PO BID [facility] Last Admin: 08/24/19 09:59 Dose: 6.25 mg Documented by: Enoxaparin Sodium (Lovenox) 40 mg SC DAILY [facility] Last Admin: 08/24/19 10:03 Dose: 40 mg Documented by: Furosemide (Lasix) 40 mg PO DAILY [facility] Last Admin: 08/24/19 10:01 Dose: 40 mg Documented by: Glucagon () 1 mg IM .X1 PRN PRN Reason: Hypoglycemia Haloperidol (Haldol) 1 mg PO BID [facility] Last Admin: 08/24/19 10:00 Dose: 1 mg Documented by: Hydralazine HCl (Apresoline Iv) 10 mg IV Q4H PRN PRN PRN Reason: SBP > 160 Last Admin: 08/22/19 19:08 Dose: 10 mg Documented by: [facility] Last Admin: 08/24/19 17:59 Dose: 200 mg Documented by: Sodium Chloride () 250 mls @ 15 mls/hr IV .[id number] PRN PRN Reason: Saline Flush Last Infusion: 08/24/19 04:10 Dose: 0 mls/hr Documented by: Sodium Chloride () 250 mls @ 15 mls/hr IV .[id number] PRN PRN Reason: Additional IVPB Infusion Dextrose (Dextrose 10%-Water) 250 mls @ 999 mls/hr IV .Q16M PRN; Protocol PRN Reason: HYPOGLYCEMIA Ceftriaxone Sodium 2 gm/ (Sodium Chloride) 50 mls @ 100 mls/hr IV Q24 [facility] Last Infusion: 08/24/19 16:45 Dose: Infused Documented by: Insulin Glargine (Lantus (Bkc)) 10 units SC QHS [facility] Last Admin: 08/23/19 21:13 Dose: 10 units Documented by: Insulin Human Lispro (Humalog Kwikpen ([facility])) 0 unit SC TIDAC [facility]; Protocol Last Admin: 08/24/19 16:17 Dose: Not Given Documented by: Insulin Human Regular (Humulin R U-500 ([facility])) 35 units SC BIDAC [facility] Last Admin: 08/24/19 17:21 Dose: Not Given Documented by: Lamotrigine (Lamictal) 100 mg PO BID [facility] Last Admin: 08/24/19 10:01 Dose: 100 mg Documented by: Levothyroxine Sodium (Synthroid) 75 mcg PO DAILY@0600 [facility] Last Admin: 08/24/19 05:48 Dose: 75 mcg Documented by: Losartan Potassium (Cozaar) 75 mg PO DAILY [facility] Last Admin: 08/24/19 09:59 Dose: 75 mg Documented by: Magnesium Hydroxide (Milk Of Magnesia) 30 ml PO DAILY PRN PRN Reason: Constipation Melatonin (Melatonin) 3 mg PO QHS PRN PRN PRN Reason: INSOMNIA Last Admin: 08/21/19 23:07 Dose: 3 mg Documented by: Montelukast Sodium (Singulair) 10 mg PO DAILY [facility] Last Admin: 08/24/19 10:01 Dose: 10 mg Documented by: Morphine Sulfate () 2 - 4 mg IV Q4H PRN PRN PRN Reason: Pain Score 1-10/10 Last Admin: 08/24/19 09:47 Dose: 2 mg Documented by: Nutritional Formula (Lactose Free) (Glucerna Shake) 120 ml PO 4X/DAY [facility] Last Admin: 08/24/19 17:21 Dose: Not Given Documented by: Ondansetron HCl (Zofran) 4 mg IV Q8H PRN PRN PRN Reason: NAUSEA/VOMITING Last Admin: 08/24/19 13:42 Dose: 4 mg Documented by: Oxycodone HCl (Oxyir) 10 mg PO Q4H PRN PRN PRN Reason: Pain Score 6-10/10 Last Admin: 08/24/19 18:00 Dose: 10 mg Documented by: Potassium Ch[facility] (K-Dur) [facility] Last Admin: 08/24/19 10:07 Dose: 20 meq Documented by: Pramipexole Dihydrochloride (Mirapex) 0.5 mg PO DAILY [facility] Last Admin: 08/24/19 10:01 Dose: 0.5 mg Documented by: Pregabalin (Lyrica) 225 mg PO BID [facility] Last Admin: 08/24/19 10:01 Dose: 225 mg Documented by: Promethazine HCl (Phenergan) 6.25 mg IV Q4H PRN PRN PRN Reason: NAUSEA/VOMITING Sertraline HCl (Zoloft) 50 mg PO DAILY [facility] Last Admin: 08/24/19 10:02 Dose: 50 mg Documented by: Sodium Chloride () 10 - 40 ml IV UD PRN PRN Reason: SALINE FLUSH Last Admin: 08/23/19 15:29 Dose: 20 ml Documented by: Sodium Hypochlorite (Dakins Solution 0.25% (1/2 Strength)) 1 applic TOPICAL BID [facility]; Protocol Last Admin: 08/24/19 16:04 Dose: 1 applicatio Documented by: Medical Necessity - Tobacco Use Smoking Status: Never smoker Tobacco Use: Non-smoker Assessment/Plan All Active Problems (Last Updated 08/24/19 @ 12:53 by Fina Huertas MD) Sepsis (Acute) Diabetic infection of right foot (Acute) UTI (urinary tract infection) (Acute) Ulcer of right foot (Acute) Toe osteomyelitis, right (Acute) s/p right open second toe debridement Osteomyelitis right second toe DM II with neuropathy Cellulitis - resolving Other comorbidities Re-evaluation performed. Site healing well with resolving infection. Continue to follow cultures - patient is on antibiotics managed by Infectious Disease. Noninvasive lower extremity arterial studies were ordered and good arterial flow noted to foot bilateral. Clinically no evidence of ischemia to the foot or ankle bilateral. We will continue with local wound care. A wound vac will be ordered to be applied tomorrow - 125mmHg continuous. Today a wet to dry dressing was applied to the right foot consisting of Dakins solution, gauze, kerlix and sienna bandage. Ok to weightbear on right heel short distances, otherwise keep foot elevated. Podiatry will continue to follow. Patient to follow up with Dr. Jernigan at wound center once discharged.
[2019-08-24] MEDS: Allopurinol 100 MG Tablet PO (21:44)
[2019-08-24] MEDS: Atorvastatin Calcium 20 MG Tablet PO (21:44)
[2019-08-24 21:56] LABS: Bedside Glucose 250 mg/dL (70-110)
[2019-08-25] MEDS: 0.9% Saline Lock 10 ML Syringe IV (01:23)
[2019-08-25] MEDS: Ondansetron 4 MG/2 ML Vial IV (01:23)
[2019-08-25] MEDS: oxyCODONE 5 MG Tablet 10 MG PO ×3 (02:02→13:09)
[2019-08-25 02:58] VITALS: PULSE 75
[2019-08-25 03:30] VITALS: BP 154/57; PULSE 81; RESP 16; TEMP 37.3; O2SAT 94
[2019-08-25] MEDS: Levothyroxine 75 MCG Tablet PO (06:27)
[2019-08-25] MEDS: Insulin Lispro 100 UNIT/ML INSULN.PEN SC ×2 (06:27→11:55)
[2019-08-25 06:35] LABS: Bedside Glucose 213 mg/dL (70-110)
[2019-08-25 07:04] VITALS: PULSE 79
[2019-08-25] MEDS: Aspirin 81 MG TAB.CHEW PO (08:59)
[2019-08-25] MEDS: Hydroxychloroquine 200 MG Tablet PO (08:59)
[2019-08-25 09:00] VITALS: BP 140/59; PULSE 79; RESP 18; TEMP 36.2; O2SAT 92
[2019-08-25] MEDS: Montelukast 10 MG Tablet PO (09:00)
[2019-08-25] MEDS: Losartan Potassium 25 MG Tablet 75 MG PO (09:01)
[2019-08-25] MEDS: Carvedilol 6.25 MG Tablet PO (09:02)
[2019-08-25] MEDS: Haloperidol 1 MG Tablet PO (09:02)
[2019-08-25] MEDS: lamoTRIgine 100 MG Tablet PO (09:03)
[2019-08-25] MEDS: Sertraline 50 MG Tablet PO (09:03)
[2019-08-25] MEDS: Furosemide 40 MG Tablet PO (09:04)
[2019-08-25] MEDS: Enoxaparin 40 MG/0.4 ML Syringe SC (09:04)
[2019-08-25] MEDS: Pramipexole Di-HCl 0.5 MG Tablet PO (09:04)
--- NOTE | 2019-08-25 09:22 | CASEMGMT ---
Addendum entered by Mckayla Nam 08/25/19 13:31: [facility] has a wound vac for patient. Wound vac settings were faxed to [facility]. Mckayla CHINCHILLA Original Note: Patient is going to get a wound vac applied today. AJ called [facility] and spoke with Kenrick letting her know this information. She said she thinks they have one on hand, but they will check and she will get back with AJ. Mckayla SNEED FRONT OFFICE DIRECTOR
--- NOTE | 2019-08-25 09:54 | PCM.PN.ID ---
Patient Problems: Active and Suspected Problems (Last Updated 08/24/19 @ 12:53 by Fina Huertas MD) Sepsis (Acute) Diabetic infection of right foot (Acute) UTI (urinary tract infection) (Acute) Ulcer of right foot (Acute) Toe osteomyelitis, right (Acute) Subjective: Feeling ok, pain controlled, no fever, no n/v/d. - Physical Exam Vitals/I&O's: Vital Signs Temp Pulse Resp BP Pulse Ox 99.2 F H 81 16 154/57 H 94 08/25/19 03:30 08/25/19 03:30 08/25/19 03:30 08/25/19 03:30 08/25/19 03:30 Oxygen Flow Rate (L/min) 3 Oxygen Delivery Method Room Air Weight: 116.2 kg Body Mass Index (BMI) 41.0 Finger Stick Blood Glucose 182 Intake and Output for Last 24 Hours 08/23/19 08/24/19 08/25/19 23:59 23:59 23:59 Intake Total 2862.75 / 2862.75 3441.16 / 3441.16 120 / 120 Output Total 1050 / 1350 5900 / 5900 850 / 850 Balance 1812.75 / 1512.75 -2458.84 / -2458.84 -730 / -730 General: Alert, Cooperative, No apparent distress Lungs: Clear to auscultation, Normal air movement Cardiovascular: Regular rate, Regular Rhythm Abdomen: Soft, Non Tender, Non-Distended Skin: Ulcer/ Wound - foot wrapped Microbiology Past 72 Hours 08/22/19 Unknown Bone - Right Foot Gram Stain - Final 08/22/19 Unknown Bone - Right Foot Wound Culture - Final No growth aerobically. 08/22/19 Unknown Bone - Right Foot Anaerobic Culture - Preliminary No growth in 48 hours. 08/22/19 Unknown Tissue - Right Foot Gram Stain - Final 08/22/19 Unknown Tissue - Right Foot Wound Culture - Final Streptococcus agalactiae (B) 08/22/19 Unknown Bone - Right Foot Gram Stain - Final 08/22/19 Unknown Bone - Right Foot Wound Culture - Final Streptococcus group B 08/21/19 17:20 Blood Culture (Wb) - Anticubital Left Blood Culture - Preliminary No growth in 48 hours. 08/21/19 17:30 Blood Culture (Wb) - Anticubital Left Blood Culture - Preliminary No growth in 48 hours. 08/21/19 21:10 Wound - Toe Gram Stain - Final 08/21/19 21:10 Wound - Toe Wound Culture - Final Streptococcus group B Coag Negative Staph 08/21/19 15:45 Urine Catheter - Catheter Urine Culture - Final Presumptive E. coli Laboratory Results 08/22/19 06:33: Diff Path Review Reviewed 08/24/19 09:53: POC Glucose 187 H 08/24/19 13:54: POC Glucose 78 08/24/19 16:16: POC Glucose 74 08/24/19 21:34: POC Glucose 250 H 08/25/19 06:24: POC Glucose 213 H Current Medications Acetaminophen (Tylenol) 650 mg PO Q6H PRN PRN PRN Reason: Non-cardiac pain () Al Hydroxide/Mg Hydroxide (Mylanta Ii) 15 - 30 ml PO Q4H PRN PRN PRN Reason: INDIGESTION Albuterol Sulfate (Ventolin Aerosols) 2.5 mg INHALATION Q2H PRN PRN PRN Reason: dyspnea, wheezing Allopurinol (Zyloprim) 100 mg PO QHS [facility] Last Admin: 08/24/19 21:44 Dose: 100 mg Documented by: Aspirin (Aspirin, Baby) 81 mg PO DAILY@0800 [facility] Last Admin: 08/25/19 08:59 Dose: 81 mg Documented by: Atorvastatin Calcium (Lipitor) 20 mg PO QHS [facility] Last Admin: 08/24/19 21:44 Dose: 20 mg Documented by: Carvedilol (Coreg) 6.25 mg PO BID [facility] Last Admin: 08/25/19 09:02 Dose: 6.25 mg Documented by: Enoxaparin Sodium (Lovenox) 40 mg SC DAILY [facility] Last Admin: 08/25/19 09:04 Dose: 40 mg Documented by: Furosemide (Lasix) 40 mg PO DAILY [facility] Last Admin: 08/25/19 09:04 Dose: 40 mg Documented by: Glucagon () 1 mg IM .X1 PRN PRN Reason: Hypoglycemia Haloperidol (Haldol) 1 mg PO BID [facility] Last Admin: 08/25/19 09:02 Dose: 1 mg Documented by: Hydralazine HCl (Apresoline Iv) 10 mg IV Q4H PRN PRN PRN Reason: SBP > 160 Last Admin: 08/22/19 19:08 Dose: 10 mg Documented by: Hydroxychloroquine Sulfate (Plaquenil) 200 mg PO BIDCM [facility] Last Admin: 08/25/19 08:59 Dose: 200 mg Documented by: Sodium Chloride () 250 mls @ 15 mls/hr IV .[id number] PRN PRN Reason: Saline Flush Last Infusion: 08/24/19 04:10 Dose: 0 mls/hr Documented by: Sodium Chloride () 250 mls @ 15 mls/hr IV .[id number] PRN PRN Reason: Additional IVPB Infusion Dextrose (Dextrose 10%-Water) 250 mls @ 999 mls/hr IV .Q16M PRN; Protocol PRN Reason: HYPOGLYCEMIA Ceftriaxone Sodium 2 gm/ (Sodium Chloride) 50 mls @ 100 mls/hr IV Q24 [facility] Last Admin: 08/25/19 09:53 Dose: 100 mls/hr Documented by: Insulin Glargine (Lantus ([facility])) 10 units SC QHS [facility] Last Admin: 08/24/19 21:44 Dose: 10 units Documented by: Insulin Human Lispro (Humalog Kwikpen ([facility])) 0 unit SC TIDAC [facility]; Protocol Last Admin: 08/25/19 06:27 Dose: 2 units Documented by: Insulin Human Regular (Humulin R U-500 ([facility])) 35 units SC BIDAC [facility] Last Admin: 08/25/19 08:58 Dose: 35 u Documented by: Lamotrigine (Lamictal) 100 mg PO BID [facility] Last Admin: 08/25/19 09:03 Dose: 100 mg Documented by: Levothyroxine Sodium (Synthroid) 75 mcg PO DAILY@0600 [facility] Last Admin: 08/25/19 06:27 Dose: 75 mcg Documented by: Losartan Potassium (Cozaar) 75 mg PO DAILY [facility] Last Admin: 08/25/19 09:01 Dose: 75 mg Documented by: Magnesium Hydroxide (Milk Of Magnesia) 30 ml PO DAILY PRN PRN Reason: Constipation Melatonin (Melatonin) 3 mg PO QHS PRN PRN PRN Reason: INSOMNIA Last Admin: 08/21/19 23:07 Dose: 3 mg Documented by: Montelukast Sodium (Singulair) 10 mg PO DAILY [facility] Last Admin: 08/25/19 09:00 Dose: 10 mg Documented by: Morphine Sulfate () 2 - 4 mg IV Q4H PRN PRN PRN Reason: Pain Score 1-10/10 Last Admin: 08/24/19 21:36 Dose: 2 mg Documented by: Nutritional Formula (Lactose Free) (Glucerna Shake) 120 ml PO 4X/DAY [facility] Last Admin: 08/25/19 09:05 Dose: Not Given Documented by: Ondansetron HCl (Zofran) 4 mg IV Q8H PRN PRN PRN Reason: NAUSEA/VOMITING Last Admin: 08/25/19 01:23 Dose: 4 mg Documented by: Oxycodone HCl (Oxyir) 10 mg PO Q4H PRN PRN PRN Reason: Pain Score 6-10/10 Last Admin: 08/25/19 06:47 Dose: 10 mg Documented by: Potassium Chloride (K-Dur) [facility] Last Admin: 08/25/19 08:59 Dose: 20 meq Documented by: Pramipexole Dihydrochloride (Mirapex) 0.5 mg PO DAILY [facility] Last Admin: 08/25/19 09:04 Dose: 0.5 mg Documented by: Pregabalin (Lyrica) 225 mg PO BID [facility] Last Admin: 08/24/19 21:44 Dose: 225 mg Documented by: Promethazine HCl (Phenergan) 6.25 mg IV Q4H PRN PRN PRN Reason: NAUSEA/VOMITING Sertraline HCl (Zoloft) 50 mg PO DAILY [facility] Last Admin: 08/25/19 09:03 Dose: 50 mg Documented by: Sodium Chloride () 10 - 40 ml IV UD PRN PRN Reason: SALINE FLUSH Last Admin: 08/25/19 01:23 Dose: 10 ml Documented by: Sodium Hypochlorite (Dakins Solution 0.25% (1/2 Strength)) 1 applic TOPICAL BID [facility]; Protocol Last Admin: 08/24/19 21:45 Dose: Not Given Documented by: Medical Necessity - Tobacco Use Smoking Status: Never smoker Tobacco Use: Non-smoker Route of nutrition/ use of supplements: [] Nutritional Intake: [] IV Site: [] Robb Catheter: [] - Assessment/Plan Antibiotics: [] Assessment/Plan: [] Active and Suspected Problems (Last Updated 08/24/19 @ 12:53 by Fina Huertas MD) Sepsis (Acute) Diabetic infection of right foot (Acute) UTI (urinary tract infection) (Acute) Ulcer of right foot (Acute) Toe osteomyelitis, right (Acute) R 1st toe osteo - now s/p amputation by Dr. Jernigan 08/22/19. Clearance bone cx neg so far. On ceftriaxone, ok for d/c to [facility] off of abx once wound vac in place. ecoli bacteruria - UA neg, asymptomatic. Not consistent with true infection, covered by ceftriaxone. Will follow
[2019-08-25] MEDS: Pregabalin 75 MG Capsule 225 MG PO (09:59)
--- NOTE | 2019-08-25 11:05 | NURSING ---
Talked with Dr Zapata and he is ok if patient is discharged to the senior care today. wound VAC can be applied there.
--- NOTE | 2019-08-25 11:49 | PCM.EXTCARCO ---
- Diet 08/22/19 12:50 Diet: Carbohydrate Controlled Is pt able to select menu?: No - Routine Orders/Code Status Enema Type: Fleetz Enema Frequency: Daily PRN Suppository Type: Dulcolax 10mg Suppository Frequency: Daily PRN Routine Lab Work: CBC, BMP, - - Q Week - Wound(s) coccyx Wound Type: Pressure Injury Right 2nd toe Wound Type: Amputation right foot Wound Type: open surgical wound s/p 2nd toe amputation Dressing Change: packed with Dakins moistened gauze - Suggestions for Active Care Change Position every (hours): 2 Times a day to sit in chair: 3 - Therapies Weight Bearing: Partial weight bearing Physical Therapy: Eval and Treat Occupational Therapy: Eval and Treat - Problem/Diagnosis (1) Takotsubo cardiomyopathy Status: Chronic Current Visit: No (2) Diabetic infection of right foot Status: Acute Current Visit: Yes (3) Toe osteomyelitis, right Status: Acute Comment: Status post amputation 08/22/2019 Current Visit: Yes (4) Type 2 diabetes mellitus with diabetic polyneuropathy Status: Chronic Current Visit: Yes (5) Fibromyalgia Status: Chronic Current Visit: No (6) GERD (gastroesophageal reflux disease) Status: Chronic Current Visit: No (7) Iron deficiency anemia Status: Chronic Current Visit: No (8) Depression Status: Chronic Current Visit: No (9) Morbid obesity with BMI of 40.0-44.9, adult Status: Chronic Current Visit: No (10) HLD (hyperlipidemia) Status: Chronic Current Visit: No (11) Benign essential HTN Status: Chronic Current Visit: No - Allergies/Procedures Done in Hospital Allergies/Adverse Reactions: Allergies ciprofloxacin [From Cipro] Allergy (Verified 08/21/19 14:24) Shortness of breath ciprofloxacin HCl [From Cipro] Allergy (Verified 08/21/19 14:24) Shortness of breath cyclobenzaprine [From Flexeril] Allergy (Verified 08/21/19 14:24) Rash cyclobenzaprine HCl [From Flexeril] Allergy (Verified 08/21/19 14:24) Rash ketorolac tromethamine [From Toradol] Allergy (Verified 08/21/19 14:24) Chest tightness sulfamethoxazole [From Bactrim] Allergy (Verified 08/21/19 14:24) Itching trimethoprim [From Bactrim] Allergy (Verified 08/21/19 14:24) Itching metformin Adverse Reaction (Verified 08/21/19 14:24) Other headache valacyclovir HCl [From Valtrex] Adverse Reaction (Verified 08/21/19 14:24) Other Procedures: - - Right second toe amputation - Type of Care/Length of Stay Estimated LOS: Convalescent Care Less Than 30 days Type of Care Needed: Skilled Rehab Potential: Fair Prognosis: Fair - Additional Orders/Day of Discharge Additional Orders: Apply wound VAC to wound on right foot 08/25/2019 at 125 mmHg, dressing changes 3 times per week. Partial weightbearing right lower extremity. Apply postop shoe right foot. H&P will serve as current which was dated: 08/21/19 Day of Discharge: 08/25/19 - Dietary and Speech Recommendations Dietitian Recommendations/Changes: Rec AWAIS to 1800 brain Cardiac. Will order ONS medpass for healing of skin. Rec Shade bid to help w/ wound healing - Follow Up Care Primary Care Physician: Devan Parks MD [Primary Care Provider] - Please follow up with your Primary Care Physician in: 1 Week Please Follow Up With: Benja Jernigan DPM - @ wound center When: 3-5 days Please Follow Up With: Dr. Mario Alberto Rodriguez - [phone] When: Spine surgeon, call and make patient ric appointment for back pain/see mri Please Follow Up With: Obdulio Orellana MD - Pain management When: Please call to make patient soonest available appointment for back pain
[2019-08-25] MEDS: DAKIN'S SOL HALF STRENGTH (=0.25%) 1 APPLIC TOPICAL (11:56)
--- NOTE | 2019-08-25 11:58 | DS.PCM_ITS ---
<Ashli Baldwin - Last Filed: 08/25/19 12:12> Discharge Date and Diagnosis Date of Admission: 08/21/19 Date of Discharge: 08/25/19 - Primary Discharge Diagnosis Active and Suspected Problems (Last Updated 08/24/19 @ 12:53 by Fina Huertas MD) 1. Right second toe ulceration with cellulitis and suspected osteomyelitis status post right second toe amputation by Dr. Jernigan 08/22/2019 2. Acute E. coli UTI 3. Type 2 diabetes mellitus with gastroparesis 4. Seizure disorder 5. Rheumatoid arthritis 6. Chronic pain syndrome, neuropathy, fibromyalgia, spinal stenosis 7. Anxiety/depression/questionable bipolar disorder 8. Chronic diastolic CHF, history of Takotsubo cardiomyopathy 9. Hypertension 10. Hyperlipidemia 11. Gout 12. Hypothyroidism 13. Restless leg syndrome 14. Iron deficiency anemia - Secondary Discharge Diagnosis Chronic Problems (Last Updated 08/24/19 @ 12:53 by Fina Huertas MD) Takotsubo cardiomyopathy (Chronic) Type 2 diabetes mellitus with diabetic polyneuropathy (Chronic) NSTEMI (non-ST elevated myocardial infarction) (Chronic) Fibromyalgia (Chronic) Type 2 diabetes mellitus (Chronic) Diabetic gastroparesis (Chronic) GERD (gastroesophageal reflux disease) (Chronic) Seizure disorder (Chronic) Paroxysmal atrial fibrillation (Chronic) Chronic pain syndrome (Chronic) Takotsubo cardiomyopathy (Chronic) Iron deficiency anemia (Chronic) Depression (Chronic) Morbid obesity with BMI of 40.0-44.9, adult (Chronic) HLD (hyperlipidemia) (Chronic) Benign essential HTN (Chronic) Hospital Course and Treatment Imaging Results: Diagnostic Data Brain CT 08/21/19 15:10 IMPRESSION: Mild chronic sinusitis of the left maxillary and sphenoid sinuses. This appears similar to the previous study. There is no evidence of intracranial hemorrhage or calvarial fracture. Electronically Signed: Gareth Gamble MD at 17:26 EST , Service support , Foot X-Ray 08/22/19 12:28 IMPRESSION: Status post second amputation. Minimal soft tissue air is seen in the region of the second metatarsal head. Other findings as detailed above. Electronically Signed: Gareth Gamble MD at 16:10 EST , Service support , Consultations 08/25/19 06:45 Consult: Onc/Wound/kerrick kleaner operator Routine Comment: Reason for Consult:: VAC application Dr. Jernigan- Podiatry Operations: - - Right second toe amputation Procedures: None Summary of Care Provided: The patient is a 63 year old F admitted 08/21/2019 due to confusion, back pain and right second toe redness and foul-smelling discharge. 1. Right second toe ulceration with cellulitis and suspected osteomyelitis status post right second toe amputation by Dr. Jernigan 08/22/2019. MRSA/MSSA PCR negative. ID consulted. Bone culture shows no growth so far. No further antibiotics necessary at discharge per ID. Wound VAC to be placed today at nursing facility. Follow-up with Dr. Jernigan, podiatry at wound center in 3 days. 2. Acute E. coli UTI-urinalysis on admission with 4+ bacteria and positive nitrite. Urine culture growing E. coli greater than 100,000 colony count. Completed treatment with IV Rocephin. Possible colonization given patient asymptomatic. 3. Type 2 diabetes mellitus with gastroparesis-continue oral regimen. Hemoglobin A1c 8.5%. 4. Seizure disorder-continue home lamotrigine regimen. 5. Rheumatoid arthritis-continue Plaquenil regimen. 6. Chronic pain syndrome, neuropathy, fibromyalgia/spinal stenosis-continue Lyrica regimen. PRN pain regimen. Records per [facility] MRI of lumbar spine 08/18/2019 demonstrated unchanged grade 1 anterolisthesis of L4 on L5. L3-L4 symmetric bulge and facet arthropathy without stenosis. L4-L5 disc uncovering, facet arthropathy and ligamentum flavum thickening causing mild central spinal stenosis and narrows both lateral recesses. Mild right foraminal stenosis. Bilateral small facet joint effusions present. No other significant findings. Recommend outpatient follow-up with neuro/spine surgery. Referred to Dr. Rodriguez at [facility] for evaluation regarding spinal stenosis, requested SNF to make patient soonest appointment. Also referred to pain management, Dr. Orellana for further pain control. 7. Anxiety/depression/questionable bipolar disorder-continue Haldol, sertraline regimen. 8. Chronic diastolic CHF, history of Takotsubo cardiomyopathy-continue aspirin, statin, beta-maria teresa, ARB, Lasix. 9. Hypertension-continue home regimen with PRN hydralazine for systolic blood pressure greater than 180. 10. Hyperlipidemia-continue statin. 11. Gout-continue allopurinol regimen. 12. Hypothyroidism-continue Synthroid regimen. 13. Restless leg syndrome-continue home Requip regimen. 14. Iron deficiency anemia-stable. General: Alert, Oriented x3, Cooperative HEENT: Atraumatic, PERRLA, EOMI, Normocephalic Neck: Supple, No JVD, Negative Carotid Bruits Lungs: Clear to auscultation, Normal air movement Cardiovascular: Regular rate, Regular Rhythm, Normal S1, Normal S2, No murmurs Abdomen: Bowel Sounds Present, Soft, Non Tender, Non-Distended, Obese Extremities: No clubbing, No cyanosis, No edema, Capillary Refill Less than 3 Seconds Skin: No rashes, No breakdown, - - Status post right second toe amputation, postop dressing intact. Musculoskeletal: No Tenderness to Palpation of Joints or Extremities Neurological: Cranial nerves II-XII grossly intact Psych/Mental Status: Normal Affect, Appropriate Patient seen and examined prior to discharge. Physical assessment as noted above. Patient is stable for discharge with follow up recommendations as noted above. This patient was seen by JONATAN Ley under the supervision of Dr. Huertas. - Physical Exam Vitals/I&O's: Vital Signs Temp Pulse Resp BP Pulse Ox 97.1 F L 79 18 140/59 H 92 08/25/19 09:00 08/25/19 09:00 08/25/19 09:00 08/25/19 09:00 08/25/19 09:00 Oxygen Flow Rate (L/min) 3 Oxygen Delivery Method Room Air Weight: 256 lb 2.834 oz Body Mass Index (BMI) 41.0 Finger Stick Blood Glucose 182 Intake and Output for Last 24 Hours 08/23/19 08/24/19 08/25/19 23:59 23:59 23:59 Intake Total 2862.75 / 2862.75 3441.16 / 3441.16 120 / 120 Output Total 1050 / 1350 5900 / 5900 850 / 850 Balance 1812.75 / 1512.75 -2458.84 / -2458.84 -730 / -730 Microbiology Past 72 Hours 08/22/19 Unknown Bone - Right Foot Gram Stain - Final 08/22/19 Unknown Bone - Right Foot Wound Culture - Final No growth aerobically. 08/22/19 Unknown Bone - Right Foot Anaerobic Culture - Preliminary No growth in 48 hours. 08/22/19 Unknown Tissue - Right Foot Gram Stain - Final 08/22/19 Unknown Tissue - Right Foot Wound Culture - Final Streptococcus agalactiae (B) 08/22/19 Unknown Bone - Right Foot Gram Stain - Final 08/22/19 Unknown Bone - Right Foot Wound Culture - Final Streptococcus group B 08/21/19 17:20 Blood Culture (Wb) - Anticubital Left Blood Culture - Preliminary No growth in 48 hours. 08/21/19 17:30 Blood Culture (Wb) - Anticubital Left Blood Culture - Preliminary No growth in 48 hours. 08/21/19 21:10 Wound - Toe Gram Stain - Final 08/21/19 21:10 Wound - Toe Wound Culture - Final Streptococcus group B Coag Negative Staph 08/21/19 15:45 Urine Catheter - Catheter Urine Culture - Final Presumptive E. coli Laboratory Results 08/22/19 06:33: Diff Path Review Reviewed 08/24/19 13:54: POC Glucose 78 08/24/19 16:16: POC Glucose 74 08/24/19 21:34: POC Glucose 250 H 08/25/19 06:24: POC Glucose 213 H Current Medications Acetaminophen (Tylenol) 650 mg PO Q6H PRN PRN PRN Reason: Non-cardiac pain (4-10/10) Al Hydroxide/Mg Hydroxide (Mylanta Ii) 15 - 30 ml PO Q4H PRN PRN PRN Reason: INDIGESTION Albuterol Sulfate (Ventolin Aerosols) 2.5 mg INHALATION Q2H PRN PRN PRN Reason: dyspnea, wheezing Allopurinol (Zyloprim) 100 mg PO QHS [facility] Last Admin: 08/24/19 21:44 Dose: 100 mg Documented by: Aspirin (Aspirin, Baby) 81 mg PO DAILY@0800 [facility] Last Admin: 08/25/19 08:59 Dose: 81 mg Documented by: Atorvastatin Calcium (Lipitor) 20 mg PO QHS [facility] Last Admin: 08/24/19 21:44 Dose: 20 mg Documented by: Carvedilol (Coreg) 6.25 mg PO BID [facility] Last Admin: 08/25/19 09:02 Dose: 6.25 mg Documented by: Enoxaparin Sodium (Lovenox) 40 mg SC DAILY [facility] Last Admin: 08/25/19 09:04 Dose: 40 mg Documented by: Furosemide (Lasix) 40 mg PO DAILY [facility] Last Admin: 08/25/19 09:04 Dose: 40 mg Documented by: Glucagon () 1 mg IM .X1 PRN PRN Reason: Hypoglycemia Haloperidol (Haldol) 1 mg PO BID [facility] Last Admin: 08/25/19 09:02 Dose: 1 mg Documented by: Hydralazine HCl (Apresoline Iv) 10 mg IV Q4H PRN PRN PRN Reason: SBP > 160 Last Admin: 08/22/19 19:08 Dose: 10 mg Documented by: Hydroxychloroquine [facility] ([facility]) [facility] Last Admin: 08/25/19 08:59 Dose: 200 mg Documented by: Sodium Chloride () 250 mls @ 15 mls/hr IV .[id number] PRN PRN Reason: Saline Flush Last Infusion: 08/24/19 04:10 Dose: 0 mls/hr Documented by: Sodium Chloride () 250 mls @ 15 mls/hr IV .[id number] PRN PRN Reason: Additional IVPB Infusion Dextrose (Dextrose 10%-Water) 250 mls @ 999 mls/hr IV .Q16M PRN; Protocol PRN Reason: HYPOGLYCEMIA Ceftriaxone Sodium 2 gm/ (Sodium Chloride) 50 mls @ 100 mls/hr IV Q24 [facility] Last Admin: 08/25/19 09:53 Dose: 100 mls/hr Documented by: Insulin Glargine (Lantus ([facility])) 10 units SC QHS [facility] Last Admin: 08/24/19 21:44 Dose: 10 units Documented by: Insulin Human Lispro (Humalog Kwikpen ([facility])) 0 unit SC TIDAC [facility]; Protocol Last Admin: 08/25/19 11:55 Dose: 2 units Documented by: Insulin Human Regular (Humulin R U-500 ([facility])) 35 units SC BIDAC [facility] Last Admin: 08/25/19 08:58 Dose: 35 u Documented by: Lamotrigine (Lamictal) 100 mg PO BID [facility] Last Admin: 08/25/19 09:03 Dose: 100 mg Documented by: Levothyroxine Sodium (Synthroid) 75 mcg PO DAILY@0600 [facility] Last Admin: 08/25/19 06:27 Dose: 75 mcg Documented by: Losartan Potassium (Cozaar) 75 mg PO DAILY [facility] Last Admin: 08/25/19 09:01 Dose: 75 mg Documented by: Magnesium Hydroxide (Milk Of Magnesia) 30 ml PO DAILY PRN PRN Reason: Constipation Melatonin (Melatonin) 3 mg PO QHS PRN PRN PRN Reason: INSOMNIA Last Admin: 08/21/19 23:07 Dose: 3 mg Documented by: Montelukast Sodium (Singulair) 10 mg PO DAILY [facility] Last Admin: 08/25/19 09:00 Dose: 10 mg Documented by: Morphine Sulfate () 2 - 4 mg IV Q4H PRN PRN PRN Reason: Pain Score 1-10/10 Last Admin: 08/24/19 21:36 Dose: 2 mg Documented by: Nutritional Formula (Lactose Free) (Glucerna Shake) 120 ml PO 4X/DAY [facility] Last Admin: 08/25/19 09:05 Dose: Not Given Documented by: Ondansetron HCl (Zofran) 4 mg IV Q8H PRN PRN PRN Reason: NAUSEA/VOMITING Last Admin: 08/25/19 01:23 Dose: 4 mg Documented by: Oxycodone HCl (Oxyir) 10 mg PO Q4H PRN PRN PRN Reason: Pain Score 6-10/10 Last Admin: 08/25/19 06:47 Dose: 10 mg Documented by: Potassium Chloride (K-Dur) [facility] Last Admin: 08/25/19 08:59 Dose: 20 meq Documented by: Pramipexole Dihydrochloride (Mirapex) 0.5 mg PO DAILY [facility] Last Admin: 08/25/19 09:04 Dose: 0.5 mg Documented by: Pregabalin (Lyrica) 225 mg PO BID [facility] Last Admin: 08/25/19 09:59 Dose: 225 mg Documented by: Promethazine HCl (Phenergan) 6.25 mg IV Q4H PRN PRN PRN Reason: NAUSEA/VOMITING Sertraline HCl (Zoloft) 50 mg PO DAILY [facility] Last Admin: 08/25/19 09:03 Dose: 50 mg Documented by: Sodium Chloride () 10 - 40 ml IV UD PRN PRN Reason: SALINE FLUSH Last Admin: 08/25/19 01:23 Dose: 10 ml Documented by: Sodium Hypochlorite (Dakins Solution 0.25% (1/2 Strength)) 1 applic TOPICAL BID [facility]; Protocol Last Admin: 08/25/19 11:56 Dose: 1 applicatio Documented by: Home Medications: Medications to take at Discharge Levothyroxine Sodium 75 mcg PO DAILY 09/17/18 Simvastatin 40 mg PO QHS 09/17/18 Hydroxychloroquine [Plaquenil] 200 mg PO BIDCM 11/30/18 Montelukast Sodium 10 mg PO DAILY 11/30/18 allopurinol 100 mg tablet 100 mg PO QHS tab 03/30/19 Insulin Regular, Human [Humulin R U-500 Kwikpen] 35 unit SQ BID 04/11/19 Menthol [Biofreeze] 1 applic TP BID PRN 07/18/19 Aspirin 81 mg PO DAILY 08/16/19 Furosemide [Lasix] 40 mg PO DAILY 08/16/19 Haloperidol 1 mg PO BID 08/16/19 Ropinirole HCl 1 mg PO DAILY 08/16/19 Sertraline HCl [Zoloft] 50 mg PO DAILY 08/16/19 Candesartan Cilexetil 16 mg PO DAILY 08/20/19 Carvedilol [Coreg (Beta Maria Teresa)] 6.25 mg PO BID 08/20/19 Insulin Glargine,Hum.rec.anlog [Toujeo Solostar] 10 unit SQ DAILY 08/20/19 Lamotrigine 100 mg PO BID 08/20/19 Pregabalin [Lyrica] 225 mg PO BID 08/20/19 Acetaminophen [Tylenol Tablet] 650 mg PO Q6H PRN PRN tab 08/25/19 Oxycodone [Oxyir] 10 mg PO Q4H PRN PRN 2 Days #10 tab 08/25/19 Following Prescrptions Were Given to Patient: Oxycodone [Oxyir] 10 mg PO Q4H PRN PRN 2 Days #10 tab PRN Reason: Pain Score 6-10/10 Prescription Printed Primary Care Physician: Devan Parks MD [Primary Care Provider] - Please follow up with your Primary Care Physician in: 1 Week Please Follow Up With: Benja Jernigan DPM - @ wound center When: 3-5 days Please Follow Up With: Dr. Mario Alberto Rodriguez - [phone] When: Spine surgeon, call and make patient ric appointment for back pain/see mri Please Follow Up With: Obdulio Orellana MD - Pain management When: Please call to make patient soonest available appointment for back pain Disposition: Longterm facility Minutes spent on discharge:: 35 Patient Condition:: Stable Medical Necessity - Tobacco Use Smoking Status: Never smoker Tobacco Use: Non-smoker Meaningful Use Info Meaningful Use Diagnoses (Choose all that apply): None applicable <Fina Huertas - Last Filed: 08/25/19 13:31> Discharge Date and Diagnosis - Secondary Discharge Diagnosis Chronic Problems (Last Updated 08/24/19 @ 12:53 by Fina Huertas MD) Takotsubo cardiomyopathy (Chronic) Type 2 diabetes mellitus with diabetic polyneuropathy (Chronic) NSTEMI (non-ST elevated myocardial infarction) (Chronic) Fibromyalgia (Chronic) Type 2 diabetes mellitus (Chronic) Diabetic gastroparesis (Chronic) GERD (gastroesophageal reflux disease) (Chronic) Seizure disorder (Chronic) Paroxysmal atrial fibrillation (Chronic) Chronic pain syndrome (Chronic) Takotsubo cardiomyopathy (Chronic) Iron deficiency anemia (Chronic) Depression (Chronic) Morbid obesity with BMI of 40.0-44.9, adult (Chronic) HLD (hyperlipidemia) (Chronic) Benign essential HTN (Chronic) Hospital Course and Treatment Consultations 08/25/19 06:45 Consult: Onc/Wound/kerrick kleaner operator Routine Comment: Reason for Consult:: VAC application Summary of Care Provided: Hospitalist note: Discharge summary above reviewed and I concur with the above discharge and treatment plan. Patient was admitted for right second toe ulceration with erythema and swelling, found to have acute diabetic right foot cellulitis, right second toe suspected osteomyelitis. Patient was treated with IV antibiotics with IV Zosyn and vancomycin. Podiatry medicine consulted and patient underwent amputation of the right second toe by Dr. Jernigan. Wound culture revealed group B streptococcus. Blood culture showed no growth in 48 hours. Patient remained afebrile and she had no leukocytosis. She was found to have E. coli acute cystitis which was treated with IV Zosyn. Infectious disease consulted and recommended no need for more antibiotics upon discharge. Wound VAC to be placed on the day of discharge before patient go to fdc facility. Patient discharged to fdc facility in a stable medical condition, no antibiotics given upon discharge as patient received 5 days of IV vancomycin and Zosyn, continued on her previous home medications without any changes, plan to follow-up with Dr. Jernigan who did the surgery in 3 to 5 days, follow-up with PCP in 1 week, recommended from with neurosurgery as outpatient as well as pain management. - Physical Exam General: Alert, Oriented x3, Cooperative, No apparent distress. HEENT: Atraumatic, PERRLA, EOMI. Neck: Supple, No JVD, Negative Carotid Bruits, Trachea Midline, Thyroid Normal. Lungs: Clear to auscultation, Normal air movement, No rhonchi, No wheeze, No rales. Cardiovascular: Regular rate, Regular Rhythm, Normal S1, Normal S2, PMI Normal. Abdomen: Bowel Sounds Present, Soft, Non Tender, Non-Distended, No Hepato- splenomegaly. Extremities: No clubbing, No cyanosis, No edema. Right foot is dressed. Skin: No rashes, No breakdown Neurological: Cranial nerves are intact, neuro grossly intact This note was generated with [employer] dictation software. It may contain incorrect words, spelling, and punctuation that were not noted in checking the note before signing. - Physical Exam Vitals/I&O's: Vital Signs Temp Pulse Resp BP Pulse Ox 97.1 F L 79 18 140/59 H 92 08/25/19 09:00 08/25/19 09:00 08/25/19 09:00 08/25/19 09:00 08/25/19 09:00 Oxygen Flow Rate (L/min) 3 Oxygen Delivery Method Room Air Weight: 256 lb 2.834 oz Body Mass Index (BMI) 41.0 Finger Stick Blood Glucose 182 Intake and Output for Last 24 Hours 08/23/19 08/24/19 08/25/19 23:59 23:59 23:59 Intake Total 2862.75 / 2862.75 3441.16 / 3441.16 670 / 670 Output Total 1050 / 1350 5900 / 5900 1150 / 1150 Balance 1812.75 / 1512.75 -2458.84 / -2458.84 -480 / -480 Microbiology Past 72 Hours 08/22/19 Unknown Bone - Right Foot Gram Stain - Final 08/22/19 Unknown Bone - Right Foot Wound Culture - Final No growth aerobically. 08/22/19 Unknown Bone - Right Foot Anaerobic Culture - Preliminary No growth in 48 hours. 08/22/19 Unknown Tissue - Right Foot Gram Stain - Final 08/22/19 Unknown Tissue - Right Foot Wound Culture - Final Streptococcus agalactiae (B) 08/22/19 Unknown Bone - Right Foot Gram Stain - Final 08/22/19 Unknown Bone - Right Foot Wound Culture - Final Streptococcus group B 08/21/19 17:20 Blood Culture (Wb) - Anticubital Left Blood Culture - Preliminary No growth in 48 hours. 08/21/19 17:30 Blood Culture (Wb) - Anticubital Left Blood Culture - Preliminary No growth in 48 hours. 08/21/19 21:10 Wound - Toe Gram Stain - Final 08/21/19 21:10 Wound - Toe Wound Culture - Final Streptococcus group B Coag Negative Staph 08/21/19 15:45 Urine Catheter - Catheter Urine Culture - Final Presumptive E. coli Laboratory Results 08/24/19 13:54: POC Glucose 78 08/24/19 16:16: POC Glucose 74 08/24/19 21:34: POC Glucose 250 H 08/25/19 06:24: POC Glucose 213 H 08/25/19 11:54: POC Glucose 201 H Current Medications Acetaminophen (Tylenol) 650 mg PO Q6H PRN PRN PRN Reason: Non-cardiac pain (-05/28) Al Hydroxide/Mg Hydroxide (Mylanta Ii) 15 - 30 ml PO Q4H PRN PRN PRN Reason: INDIGESTION Albuterol Sulfate (Ventolin Aerosols) 2.5 mg INHALATION Q2H PRN PRN PRN Reason: dyspnea, wheezing Allopurinol (Zyloprim) 100 mg PO QHS [facility] Last Admin: 08/24/19 21:44 Dose: 100 mg Documented by: Aspirin (Aspirin, Baby) 81 mg PO DAILY@0800 [facility] Last Admin: 08/25/19 08:59 Dose: 81 mg Documented by: Atorvastatin Calcium (Lipitor) 20 mg PO QHS [facility] Last Admin: 08/24/19 21:44 Dose: 20 mg Documented by: Carvedilol (Coreg) 6.25 mg PO BID [facility] Last Admin: 08/25/19 09:02 Dose: 6.25 mg Documented by: Enoxaparin Sodium (Lovenox) 40 mg SC DAILY [facility] Last Admin: 08/25/19 09:04 Dose: 40 mg Documented by: Furosemide (Lasix) 40 mg PO DAILY [facility] Last Admin: 08/25/19 09:04 Dose: 40 mg Documented by: Glucagon () 1 mg IM .X1 PRN PRN Reason: Hypoglycemia Haloperidol (Haldol) 1 mg PO BID [facility] Last Admin: 08/25/19 09:02 Dose: 1 mg Documented by: Hydralazine HCl (Apresoline Iv) 10 mg IV Q4H PRN PRN PRN Reason: SBP > 160 Last Admin: 08/22/19 19:08 Dose: 10 mg Documented by: Hydroxychloroquine Sulfate ([facility]aquenil) [facility] Last Admin: 08/25/19 08:59 Dose: 200 mg Documented by: Sodium Chloride () 250 mls @ 15 mls/hr IV .[id number] PRN PRN Reason: Saline Flush Last Infusion: 08/24/19 04:10 Dose: 0 mls/hr Documented by: Sodium Chloride () 250 mls @ 15 mls/hr IV .[id number] PRN PRN Reason: Additional IVPB Infusion Dextrose (Dextrose 10%-Water) 250 mls @ 999 mls/hr IV .Q16M PRN; Protocol PRN Reason: HYPOGLYCEMIA Ceftriaxone Sodium 2 gm/ (Sodium Chloride) 50 mls @ 100 mls/hr IV Q24 [facility] Last Infusion: 08/25/19 12:14 Dose: Infused Documented by: Insulin Glargine (Lantus ([facility])) 10 units SC QHS [facility] Last Admin: 08/24/19 21:44 Dose: 10 units Documented by: Insulin Human Lispro (Humalog Kwikpen ([facility])) 0 unit SC TIDAC [facility]; Protocol Last Admin: 08/25/19 11:55 Dose: 2 units Documented by: Insulin Human Regular (Humulin R U-500 ([facility])) 35 units SC BIDAC [facility] Last Admin: 08/25/19 08:58 Dose: 35 u Documented by: Lamotrigine (Lamictal) 100 mg PO BID [facility] Last Admin: 08/25/19 09:03 Dose: 100 mg Documented by: Levothyroxine Sodium (Synthroid) 75 mcg PO DAILY@0600 [facility] Last Admin: 08/25/19 06:27 Dose: 75 mcg Documented by: Losartan Potassium (Cozaar) 75 mg PO DAILY [facility] Last Admin: 08/25/19 09:01 Dose: 75 mg Documented by: Magnesium Hydroxide (Milk Of Magnesia) 30 ml PO DAILY PRN PRN Reason: Constipation Melatonin (Melatonin) 3 mg PO QHS PRN PRN PRN Reason: INSOMNIA Last Admin: 08/21/19 23:07 Dose: 3 mg Documented by: Montelukast Sodium (Singulair) 10 mg PO DAILY [facility] Last Admin: 08/25/19 09:00 Dose: 10 mg Documented by: Morphine Sulfate () 2 - 4 mg IV Q4H PRN PRN PRN Reason: Pain Score 1-10/10 Last Admin: 08/24/19 21:36 Dose: 2 mg Documented by: Nutritional Formula (Lactose Free) (Glucerna Shake) 120 ml PO 4X/DAY [facility] Last Admin: 08/25/19 12:51 Dose: Not Given Documented by: Ondansetron HCl (Zofran) 4 mg IV Q8H PRN PRN PRN Reason: NAUSEA/VOMITING Last Admin: 08/25/19 01:23 Dose: 4 mg Documented by: Oxycodone HCl (Oxyir) 10 mg PO Q4H PRN PRN PRN Reason: Pain Score 6-10/10 Last Admin: 08/25/19 13:09 Dose: 10 mg Documented by: Potassium Chloride (K-Dur) [facility] Last Admin: 08/25/19 08:59 Dose: 20 meq Documented by: Pramipexole Dihydrochloride (Mirapex) 0.5 mg PO DAILY [facility] Last Admin: 08/25/19 09:04 Dose: 0.5 mg Documented by: Pregabalin (Lyrica) 225 mg PO BID [facility] Last Admin: 08/25/19 09:59 Dose: 225 mg Documented by: Promethazine HCl (Phenergan) 6.25 mg IV Q4H PRN PRN PRN Reason: NAUSEA/VOMITING Sertraline HCl (Zoloft) 50 mg PO DAILY [facility] Last Admin: 08/25/19 09:03 Dose: 50 mg Documented by: Sodium Chloride () 10 - 40 ml IV UD PRN PRN Reason: SALINE FLUSH Last Admin: 08/25/19 01:23 Dose: 10 ml Documented by: Sodium Hypochlorite (Dakins Solution 0.25% (1/2 Strength)) 1 applic TOPICAL BID [facility]; Protocol Last Admin: 08/25/19 11:56 Dose: 1 applicatio Documented by: Disposition: Longterm facility Minutes spent on discharge:: 33 Patient Condition:: Stable Meaningful Use Info Meaningful Use Diagnoses (Choose all that apply): None applicable Code Visit Inpatient E&M: 78491 Disch Hosp
--- NOTE | 2019-08-25 11:58 | NURSING ---
wound photo: right foot s/p amputation 2nd toe
[2019-08-25 12:11] LABS: Bedside Glucose 201 mg/dL (70-110)
--- NOTE | 2019-08-25 13:31 | CASEMGMT ---
Patient is ready for discharge. AJ faxed orders to [facility]. SW completed convalescent on HENS. AJ spoke with patient and let her know SW will work on setting up a wc van, but it is not covered by insurance and she will get a bill. AJ called [facility] and arranged for patient to get picked up at via wc van. AJ notified patient, Kenrick at [facility], RN, and tar pot worker. Plan: d/c to [facility] under skilled level of care on a convalescent stay. [facility] transported patient via wc van. Mckayla [employer]NEED SALES PLANNING ANALYST
[2019-08-25 14:00] VITALS: BP 118/55; PULSE 64; RESP 16; TEMP 36.8; O2SAT 96
--- NOTE | 2019-08-25 14:53 | NURSING ---
report given to Martha at [facility]
== END 2019-08-25 15:15 | disposition skilled nursing facility (03) | DRG 617 ==
LOC: ED 15:04 → PCU 18:41
PROVIDERS: Internal Medicine; Nurse Practitioner Family; Podiatrist; Admitting Provider Family Medicine; Emergency Provider Emergency Medicine; Family Provider Family Medicine; PCP Family Medicine; Referring Provider Family Medicine; Visit Provider Hospitalist
PROC: 0Y6R0Z0 Detachment at Right 2nd Toe, Complete, Open Approach (ICD-10-PCS; principal; 2019-08-22 11:00)
DX: E11.621 Type 2 diabetes mellitus with foot ulcer (principal); M86.8X7 Other osteomyelitis, ankle and foot; N30.00 Acute cystitis without hematuria; Z68.41 Body mass index [BMI] 40.0-44.9, adult; E87.1 Hypo-osmolality and hyponatremia; I50.32 Chronic diastolic (congestive) heart failure; G40.909 Epilepsy, unspecified, not intractable, without status epilepticus; M06.9 Rheumatoid arthritis, unspecified; M10.9 Gout, unspecified; E78.5 Hyperlipidemia, unspecified; E03.9 Hypothyroidism, unspecified; G25.81 Restless legs syndrome; D50.9 Iron deficiency anemia, unspecified; I11.0 Hypertensive heart disease with heart failure; K31.84 Gastroparesis; E11.43 Type 2 diabetes mellitus with diabetic autonomic (poly)neuropathy; E11.628 Type 2 diabetes mellitus with other skin complications; L97.519 Non-pressure chronic ulcer of other part of right foot with unspecified severity; L03.031 Cellulitis of right toe; B96.20 Unspecified Escherichia coli [E. coli] as the cause of diseases classified elsewhere; M79.7 Fibromyalgia; G89.4 Chronic pain syndrome; F32.9 Major depressive disorder, single episode, unspecified; F41.9 Anxiety disorder, unspecified; E11.69 Type 2 diabetes mellitus with other specified complication; E11.42 Type 2 diabetes mellitus with diabetic polyneuropathy; E66.01 Morbid (severe) obesity due to excess calories; Z79.4 Long term (current) use of insulin; B95.1 Streptococcus, group B, as the cause of diseases classified elsewhere; E87.6 Hypokalemia; K21.9 Gastro-esophageal reflux disease without esophagitis; M48.061 Spinal stenosis, lumbar region without neurogenic claudication; E10.43 Type 1 diabetes mellitus with diabetic autonomic (poly)neuropathy; K42.9 Umbilical hernia without obstruction or gangrene; K57.30 Diverticulosis of large intestine without perforation or abscess without bleeding; I70.0 Atherosclerosis of aorta; Z90.49 Acquired absence of other specified parts of digestive tract; Z79.82 Long term (current) use of aspirin; Z79.899 Other long term (current) drug therapy
CPT/HCPCS: 36415; 70450; 71045; 73630; 74177; 80048; 80053; 80202; 81001; 82962; 83036; 83605; 83690; 83735; 84484; 85025; 85027; 85652; 86140; 87015; 87040; 87070; 87075; 87077; 87086; 87088; 87102; 87116; 87176; 87186; 87205; 87206; 87640; 88304; 88305; 88311; 93005; 93923; 96361; 96374; 96375; 97116; 97161; 97165; 97530; 97802; 99283; J7030; J7040; J7050; P9612; Q9967; A4216; J0696; J2405

== ENCOUNTER → 2019-09-14 16:40 | Outpatient (CLI) | payer MEDICARE, OTHER, SELFPAY ==
[2019-09-10 08:53] VITALS: BMI 40.7
[2019-09-14 17:07] LABS: Absolute Lymphocyte Count 2.46 X10^3/uL (0.83-4.51); Absolute Neutrophil Count 5.9 X10^3/uL (2.0-7.7); Basophil# 0.06 X10^3/uL; Basophil% 0.6 % (0-1); Eosinophil# 0.26 X10^3/uL; Eosinophils% 2.8 % (0-5); Hematocrit 39.2 % (37-47); Hemoglobin 12.8 g/dL (12.0-15.0); Lymphocyte # 2.46 X10^3/ul (4.0); Lymphocyte % 26.1 % (19-41); Mean Corp Hgb Conc 32.7 g/dL (32-36); Mean Corpuscular Hgb 28.1 pg (27.0-32.0); Mean Corpuscular Volume 86.2 fL (81-99); Mean Platelet Vol. 10.4 fl (6.2-12.0); Monocyte# 0.73 X10^3/uL; Monocyte% 7.7 % (0-10); NRBC Flagged by Analyzer 0 % (0-5); Neutrophil # 5.88 X10^3/uL (2.7-7.7); Neutrophil % 62.5 % (47-70); Platelet Count 253 K/mm3 (150-450); RBC Distribution Width CV 13.9 % (11.6-14.6); RBC Distribution Width SD 43.1 fl (35.1-43.9); Red Blood Count 4.55 M/mm3 (4.2-5.4); White Blood Count 9.4 K/mm3 (4.4-11.0)
[2019-09-14 17:52] LABS: ALB/GLOB Ratio 0.8 RATIO (0.9-2.4); AST(SGOT) 19 U/L (15-37); Alanine Aminotransfer ALT/SGPT 32 U/L (13-56); Albumin, Serum 3.5 g/dL (3.2-5.0); Alkaline Phosphatase 166 U/L (45-117); Anion Gap 4 (5-15); BUN 31 mg/dL (7-18); BUN/Creat Ratio 19.6 RATIO (10-20); Calcium,Total 9.3 mg/dL (8.5-10.1); Chloride 98 mmol/L (98-107); Creatinine, Serum 1.58 mg/dL (0.55-1.02); EST Glomerular Filtration Rate 35 mL/min (>60); Est Glom Filt Rate - Afr Amer 42 mL/min (>60); Globulin 4.3 g/dL (2.2-4.2); Glucose 202 mg/dL (74-106); Potassium 4.1 mmol/L (3.5-5.1); Protein, Total 7.8 g/dL (6.4-8.2); Sodium Level 134 mmol/L (136-145)
== END ==
PROVIDERS: PCP Family Medicine; Referring Provider Internal Medicine Rheumatology; Visit Provider Internal Medicine Rheumatology
DX: M06.4 Inflammatory polyarthropathy (principal); M21.40 Flat foot [pes planus] (acquired), unspecified foot; M51.37 Other intervertebral disc degeneration, lumbosacral region; M47.897 Other spondylosis, lumbosacral region; M47.892 Other spondylosis, cervical region; K21.9 Gastro-esophageal reflux disease without esophagitis; G25.81 Restless legs syndrome; I42.9 Cardiomyopathy, unspecified; I25.10 Atherosclerotic heart disease of native coronary artery without angina pectoris; F32.89 Other specified depressive episodes; I10 Essential (primary) hypertension
CPT/HCPCS: 36415; 80053; 85025

== ENCOUNTER 2019-09-17 09:15 | Outpatient (RCR) | payer MEDICARE, OTHER, SELFPAY ==
[2019-09-02 10:18] VITALS: BMI 40.6
[2019-09-03 08:25] VITALS: BP 112/47; PULSE 77; RESP 18; TEMP 36.5; BMI 40.7
--- NOTE | 2019-09-03 09:07 | HP.PCM_ITS ---
(1) Ulcer of right foot with fat layer exposed Status: Acute Current Visit: Yes Code(s): L97.512 - Non-pressure chronic ulcer of other part of right foot with fat layer exposed (2) Type 2 diabetes mellitus with diabetic polyneuropathy Status: Acute Current Visit: Yes Code(s): E11.42 - Type 2 diabetes mellitus with diabetic polyneuropathy (3) Rheumatoid arthritis Status: Acute Current Visit: Yes Code(s): M06.9 - Rheumatoid arthritis, unspecified (4) Hammer toe of left foot Status: Acute Current Visit: Yes Code(s): M20.42 - Other hammer toe(s) (acquired), left foot (5) Hammer toe of right foot Status: Acute Current Visit: Yes Code(s): M20.41 - Other hammer toe(s) (acquired), right foot History of Present Illness Date of Service: 09/03/19 Chief Complaint: Ulcer to right foot History of Wound: This patient presents to the wound healing center today for follow-up of ulcer to her right foot and area of open surgical site. Patient is status post debridement of all nonviable, infected, necrotic soft tissue and bone of the right foot with open right second toe amputation performed on 08/22/2019. Following patient's discharge from the hospital she has been at [place] [facility] facility where she is been having wound VAC changes 3 times weekly. Patient relates she has been feeling much better since her surgery and feels the area is healing. Patient currently denies any feelings of nausea, vomiting, fever, chills. Past Medical History Past Medical History: Chronic Problems (Last Reviewed 09/02/19 @ 14:25 by GRAHAM Briceño) Takotsubo cardiomyopathy (Chronic) Type 2 diabetes mellitus with diabetic polyneuropathy (Chronic) NSTEMI (non-ST elevated myocardial infarction) (Chronic) Fibromyalgia (Chronic) Type 2 diabetes mellitus (Chronic) Diabetic gastroparesis (Chronic) GERD (gastroesophageal reflux disease) (Chronic) Seizure disorder (Chronic) Paroxysmal atrial fibrillation (Chronic) Chronic pain syndrome (Chronic) Takotsubo cardiomyopathy (Chronic) Iron deficiency anemia (Chronic) Depression (Chronic) Morbid obesity with BMI of 40.0-44.9, adult (Chronic) HLD (hyperlipidemia) (Chronic) Benign essential HTN (Chronic) Surgical History: appendectomy, cholecystectomy, - - Arthroscopic knee surgery. Allergies/Adverse Reactions: Allergies ciprofloxacin [From Cipro] Allergy (Verified 09/02/19 14:51) short of breath cyclobenzaprine Allergy (Verified 09/02/19 14:51) rash metformin Allergy (Verified 09/02/19 14:52) other sulfamethoxazole Allergy (Verified 09/02/19 14:52) itch trimethoprim Allergy (Verified 09/02/19 14:52) itch valacyclovir [From Valtrex] Allergy (Verified 09/02/19 14:53) other Home Medications: Ambulatory Orders Medication Instructions Recorded Levothyroxine Sodium 75 mcg PO DAILY 09/17/18 Simvastatin 40 mg PO QHS 09/17/18 Hydroxychloroquine [Plaquenil] 200 mg PO BIDCM 11/30/18 Montelukast Sodium 10 mg PO DAILY 11/30/18 allopurinol 100 mg tablet 100 mg PO QHS tab 03/30/19 Insulin Regular, Human [Humulin R 35 unit SQ BID 04/11/19 U-500 Kwikpen] Menthol [Biofreeze] 1 applic TP BID PRN 07/18/19 Aspirin 81 mg PO DAILY 08/16/19 Furosemide [Lasix] 40 mg PO DAILY 08/16/19 Haloperidol 1 mg PO BID 08/16/19 Ropinirole HCl 1 mg PO DAILY 08/16/19 Sertraline HCl [Zoloft] 50 mg PO DAILY 08/16/19 Candesartan Cilexetil 16 mg PO DAILY 08/20/19 Carvedilol [Coreg (Beta Maria Teresa)] 6.25 mg PO BID 08/20/19 Insulin Glargine,Hum.rec.anlog 10 unit SQ DAILY 08/20/19 [Toujeo Solostar] Lamotrigine 100 mg PO BID 08/20/19 Pregabalin [Lyrica] 225 mg PO BID 08/20/19 Acetaminophen [Tylenol Tablet] 650 mg PO Q6H PRN PRN tab 08/25/19 hydrocodone 5 mg-acetaminophen 325 1 tab PO QHS PRN 09/02/19 mg tablet - Family History Paternal Family History: Family History (Last Reviewed 09/02/19 @ 14:25 by GRAHAM Briceño) Mother Myocardial infarction Father Congestive heart failure Other Diabetes Heart disease Heart Disease, - - Bone cancer Maternal Family History: Family History (Last Reviewed 09/02/19 @ 14:25 by GRAHAM Briceño) Mother Myocardial infarction Father Congestive heart failure Other Diabetes Heart disease COPD, Diabetes, Heart Disease, - - Smoker Smoking Status: Never smoker Review of Systems Constitutional: Denies: Chills, Fever, Weight Change Cardiovascular: Denies: Chest Pain, Palpitations Respiratory: Denies: Cough, Shortness of Breath Gastrointestinal: Denies: Diarrhea, Nausea, Vomiting Musculoskeletal: Reports: - - No pain to right foot Skin: Reports: - - Ulcer to right foot - Physical Exam Vital Signs Temp Pulse Resp BP 97.7 F L 77 18 112/47 L 09/03/19 08:25 09/03/19 08:25 09/03/19 08:25 09/03/19 08:25 General: Alert, Oriented x3, Cooperative, No apparent distress Extremities: No cyanosis, Capillary Refill Less than 3 Seconds - To all remaining digits of the right foot, No Calf Tenderness - Negative Kusum and Padilla signs bilateral, Peripheral Pulses Normal - DP and PT pulses palpable Skin: Ulcer/ Wound - Ulcer to right foot and area of open surgical site. Bone can no longer be visualized through the patient's open surgical site. The base is a majority of granular tissue along with areas of adherent slough, fibrin, devitalized subcutaneous tissue. There is no malodor and no purulence noted. No significant maceration appreciated. Ulcer does not probe down to bone today. Wound Measurements and Assessment WC - Nurse 1 - General Ulcer Measurement Start: 09/03/19 08:24 Freq: Status: Active Protocol: Activity Type Activity Date Activity User E-Sign Co-Sign Detail Recorded Client Recorded Date Recorded By Document 09/03/19 08:25 DL [id number] 09/03/19 08:45 DL 09/03/19 08:25 Wound Center Nurse 1 [Ulcer Assessment] #1 R 2nd toe amp site -Current Size (cm) - Length 2.1 -Current Size (cm) - Width 0.9 -Current Size (cm) - Depth 0.6 -Total Square Cm 1.89 -Photo Taken Yes -Classification - Thickness Full Thickness without Exposed Support Structure -Exudate Amt Small -Exudate Type Serosanguineous -Wound Margin Distinct, Outline Attached -Granulation Amt Large (67-100%) -Granulation Quality Red -Necrosis Amt None Present (0 %) -Structure Exposed N/A -Texture (Huma-wound Skin Appearance) No Abnormality -Moisture (Huma-wound Skin Appearance No Abnormality ) -Color (Huma-wound Skin Appearance) No Abnormality -Temperature (Huma-wound Skin No Abnormality Appearance) (Pt Warm) -Tenderness on Palpation (Huma-wound No Skin Appearance) -Ulcer Cleansing Wound Cleanser -Foul Odor after Cleansing No -Anesthetic Used 5% Lidocaine Gel Musculoskeletal: - - No pain with manipulation of ulcer site Neurological: - - Epicritic sensation grossly absent to bilateral lower extremities consistent with patient's diabetic status Psych/Mental Status: Normal Affect, Appropriate Debridement Note Wound debrided: Right distal foot Laterality: Right Type of Debridement: Excisional debridement Anesthesia Used: 4% Lidocaine Solution Depth: in the subcutaneous layer Percentage of wound debrided: 100 Instrument Used: 3mm curette Tissue Removed: Adherent slough, fibrin, devitalized subcutaneous tissue Severity: Fat Layer Exposed Amount of bleeding with debridement: Mild Bleeding Controlled with: Pressure Patient tolerated procedure well Assessment/Plan Active Problems (Last Reviewed 09/02/19 @ 14:25 by GRAHAM Briceño) Ulcer of right foot with fat layer exposed (Acute) Type 2 diabetes mellitus with diabetic polyneuropathy (Acute) Rheumatoid arthritis (Acute) Hammer toe of left foot (Acute) Hammer toe of right foot (Acute) Assessment: As noted above Plan: Patient was carefully examined and evaluated again today in detail. Patient is status post debridement of all necrotic, nonviable, infected soft tissue and bone of the right foot with open right second toe amputation. Procedure was performed August 22, 2019. Patient currently residing in [place] [facility] facility where she has her wound VAC changed 3 times a week. Patient's site was carefully evaluated today. A subcutaneous debridement was performed as noted in the clinical panel. Once complete the site looked good and granular with no signs of infection appreciated and no bone exposed. A wet-to-dry dressing was then applied. Patient is to have her wound VAC reapplied as soon as she returns to her nursing facility. This is to continue to be changed 3 times a week. Patient was instructed to keep the area offloaded at all times. She is to continue to be nonweightbearing to the right foot. If she needs to move a short distance or transfer she is able to do this with only heel weightbearing to the right side. Recommend a diet high in protein to help optimize ulcer healing potential. Patient was educated on the signs and symptoms of local and systemic infection and she is to go to the emergency room immediately should she notice any of these. All questions were answered to her satisfaction. Patient will follow back up at the wound healing center in 1 week to check on progress, or sooner if needed before then.
[2019-09-10 08:53] VITALS: BP 144/63; PULSE 66; RESP 18; TEMP 36.3; BMI 40.7
--- NOTE | 2019-09-10 09:43 | PN.PCM_ITS ---
(1) Ulcer of right foot with fat layer exposed Status: Acute Current Visit: Yes Code(s): L97.512 - Non-pressure chronic ulcer of other part of right foot with fat layer exposed (2) Type 2 diabetes mellitus with diabetic polyneuropathy Status: Acute Current Visit: Yes Code(s): E11.42 - Type 2 diabetes mellitus with diabetic polyneuropathy (3) Rheumatoid arthritis Status: Acute Current Visit: Yes Code(s): M06.9 - Rheumatoid arthritis, unspecified (4) Hammer toe of left foot Status: Acute Current Visit: Yes Code(s): M20.42 - Other hammer toe(s) (acquired), left foot (5) Hammer toe of right foot Status: Acute Current Visit: Yes Code(s): M20.41 - Other hammer toe(s) (acquired), right foot Type of Wound Date of Service: 09/10/19 Chief Complaint: Ulcer to right foot History of Wound: This patient presents to the wound healing center today for follow-up of ulcer to her right foot and area of open surgical site. Patient is status post debridement of all nonviable, infected, necrotic soft tissue and bone of the right foot with open right second toe amputation performed on 08/22/2019. Following patient's discharge from the hospital she has been at a halfway facility where she is been having wound VAC changes 3 times weekly. Patient relates she has been feeling much better since her surgery and feels the area is healing. Patient currently denies any feelings of nausea, vomiting, fever, chills. Progress of Wound: Continued improvement appreciated today. Patient currently denies any feelings of nausea, vomiting, fever, chills. - Physical Exam Vital Signs Temp Pulse Resp BP 97.4 F L 66 18 144/63 H 09/10/19 08:53 09/10/19 08:53 09/10/19 08:53 09/10/19 08:53 General: Alert, Oriented x3, Cooperative, No apparent distress Extremities: No cyanosis, Capillary Refill Less than 3 Seconds - To all remaining digits of the right foot, No Calf Tenderness - Negative Kusum and Padilla signs bilateral, Peripheral Pulses Normal - DP and PT pulses palpable Skin: Ulcer/ Wound - Ulcer to right foot and area of open surgical site. The surgical site has filled in nicely over the course of the last week. The base is a majority of granular tissue along with areas of adherent slough, fibrin, devitalized subcutaneous tissue. There is no malodor and no purulence noted. No significant maceration appreciated. Ulcer does not probe down to bone today. Wound Measurements and Assessment WC - Nurse 1 - General Ulcer Measurement Start: 09/03/19 08:24 Freq: Status: Active Protocol: Activity Type Activity Date Activity User E-Sign Co-Sign Detail Recorded Client Recorded Date Recorded By Document 09/10/19 08:53 DL [id number] 09/10/19 08:59 DL 09/10/19 08:53 Wound Center Nurse 1 [Ulcer Assessment] #1 R 2nd toe amp site -Current Size (cm) - Length 1.1 -Current Size (cm) - Width 0.5 -Current Size (cm) - Depth 0.1 -Total Square Cm 0.55 -Photo Taken No -Exudate Amt Small -Exudate Type Serosanguineous -Wound Margin Distinct, Outline Attached -Granulation Amt Large (67-100%) -Granulation Quality [place],Red -Necrosis Amt None Present (0 %) -Structure Exposed N/A -Texture (Huma-wound Skin Appearance) Scarring -Moisture (Huma-wound Skin Appearance No Abnormality ) -Color (Huma-wound Skin Appearance) No Abnormality -Temperature (Huma-wound Skin No Abnormality Appearance) (Pt Warm) -Tenderness on Palpation (Huma-wound No Skin Appearance) -Ulcer Cleansing Rinsed/ Irrigated with Saline -Foul Odor after Cleansing No -Anesthetic Used 4% Lidocaine Solution Musculoskeletal: - - No pain with manipulation of ulcer site. Significantly contracted remaining lesser digits. Neurological: - - Epicritic sensation grossly absent to bilateral lower extremities consistent with patient's diabetic status Psych/Mental Status: Normal Affect, Appropriate Debridement Note Post-Debridement Measurements/Treatment WC - Nurse 2 - General Ulcer CM Notes Start: 09/03/19 08:24 Freq: Status: Active Protocol: Activity Type Activity Date Activity User E-Sign Co-Sign Detail Recorded Client Recorded Date Recorded By Document 09/03/19 09:11 DV [id number] 09/03/19 09:15 DV 09/03/19 09:11 Wound Center Nurse 2 #1 R 2nd toe amp site -Time 09:12 -Correct Patient Yes -Correct Side, Site, Position Yes -Correct Procedure Yes -Procedure Performed Yes -Type of Procedure Debridement -Clinical Debridement Subcutaneous -Post Debridement Size (cm) - Length 1.9 -Post Debridement Size (cm) - Width 1.4 -Post Debridement Size (cm) - Depth 0.6 -Total Square Cm 2.66 -Wound/Ulcer Outcome Not Healed -Ulcer Cleansing Rinsed/ Irrigated with Saline -Foul Odor after Cleansing No -Bioengineered Tissue No -Bleeding Controlled with Pressure -Offloading No -Type of Offloading Surgical Shoe -Treatment Response Procedure Tolerated Well Pain Scale: 0-10 Numeric Is Patient Pain Free? Yes Wound debrided: Right distal foot Laterality: Right Type of Debridement: Excisional debridement Anesthesia Used: 4% Lidocaine Solution Depth: in the subcutaneous layer Percentage of wound debrided: 100 Instrument Used: 5mm curette Tissue Removed: Adherent slough, fibrin, devitalized subcutaneous tissue Severity: Fat Layer Exposed Amount of bleeding with debridement: Mild Bleeding Controlled with: Pressure Patient tolerated procedure well Assessment/Plan Active Problems (Last Reviewed 09/02/19 @ 14:25 by GRAHAM Briceño) Ulcer of right foot with fat layer exposed (Acute) Type 2 diabetes mellitus with diabetic polyneuropathy (Acute) Rheumatoid arthritis (Acute) Hammer toe of left foot (Acute) Hammer toe of right foot (Acute) Assessment: As noted above Plan: Patient was carefully examined and evaluated again today in detail. Patient is status post debridement of all necrotic, nonviable, infected soft tissue and bone of the right foot with open right second toe amputation. Procedure was performed August 22, 2019. Patient currently residing in a halfway facility where she has her wound VAC changed 3 times a week. Patient's site was carefully evaluated today. The surgical site has improved greatly over the course of the last week. I feel the patient can DC the wound VAC at this time. A subcutaneous debridement was performed as noted in the clinical panel. Next a dressing was applied consisting of Camilla to the base, followed by an overlying dry sterile dressing. The patient is to have her dressing change in this manner on a daily basis. Patient was instructed to keep the area offloaded at all times. She is to continue to be nonweightbearing to the right foot. If she needs to move a short distance or transfer she is able to do this with only heel weightbearing to the right side. Recommend a diet high in protein to help optimize ulcer healing potential. Patient was educated on the signs and symptoms of local and systemic infection and she is to go to the emergency room immediately should she notice any of these. All questions were answered to her satisfaction. Patient will follow back up at the wound healing center in 1 week to check on progress, or sooner if needed before then.
[2019-09-17 09:15] VITALS: BP 164/53; PULSE 60; RESP 16; TEMP 36.2; BMI 40.7
--- NOTE | 2019-09-17 12:54 | PCM.WC.PN ---
(1) Ulcer of right foot with fat layer exposed Status: Acute Current Visit: Yes Code(s): L97.512 - Non-pressure chronic ulcer of other part of right foot with fat layer exposed (2) Type 2 diabetes mellitus with diabetic polyneuropathy Status: Acute Current Visit: Yes Code(s): E11.42 - Type 2 diabetes mellitus with diabetic polyneuropathy (3) Rheumatoid arthritis Status: Acute Current Visit: Yes Code(s): M06.9 - Rheumatoid arthritis, unspecified (4) Hammer toe of left foot Status: Acute Current Visit: Yes Code(s): M20.42 - Other hammer toe(s) (acquired), left foot (5) Hammer toe of right foot Status: Acute Current Visit: Yes Code(s): M20.41 - Other hammer toe(s) (acquired), right foot Type of Wound Date of Service: 09/17/19 Chief Complaint: Ulcer to right foot History of Wound: This patient presents to the wound healing center today for follow-up of ulcer to her right foot and area of open surgical site. Patient is status post debridement of all nonviable, infected, necrotic soft tissue and bone of the right foot with open right second toe amputation performed on 08/22/2019. Following patient's discharge from the hospital she has been at a skilled nursing facility where she is been having wound VAC changes 3 times weekly. Patient relates she has been feeling much better since her surgery and feels the area is healing. Patient currently denies any feelings of nausea, vomiting, fever, chills. Progress of Wound: Great improvement noted again today. Patient currently denies any feelings of nausea, vomiting, fever, chills. - Physical Exam Vital Signs Temp Pulse Resp BP 97.1 F L 60 16 164/53 H 09/17/19 09:15 09/17/19 09:15 09/17/19 09:15 09/17/19 09:15 General: Alert, Oriented x3, Cooperative, No apparent distress Extremities: No cyanosis, Capillary Refill Less than 3 Seconds - To all remaining digits of the right foot, No Calf Tenderness - Negative Kusum and Padilla signs bilateral, Peripheral Pulses Normal - DP and PT pulses palpable Skin: Ulcer/ Wound - Ulcer to right foot/open surgical site. Continued improvement noted this week. The base remains a majority of granular tissue along with areas of adherent slough, fibrin, devitalized subcutaneous tissue. There is no malodor and no purulence noted. No probing, tracking, or undermining. Wound Measurements and Assessment - Nurse 1 - General Ulcer Measurement Start: 09/03/19 08:24 Freq: Status: Active Protocol: Activity Type Activity Date Activity User E-Sign Co-Sign Detail Recorded Client Recorded Date Recorded By Document 09/17/19 09:15 [facility] [id number] 09/17/19 09:19 [facility] 09/17/19 09:15 Wound Center Nurse 1 [Ulcer Assessment] #1 R 2nd toe amp site -Combined with other wound No -Current Size (cm) - Length 0.1 -Current Size (cm) - Width 0.1 -Current Size (cm) - Depth 0.1 -Total Square Cm 0.01 -Epithelialization Large 67-100% -Tunneling No -Undermining/Tunneling No -Circular Undermining No -Exudate Amt None Present -Slough/Fibrin Yes -Necrosis Amt Small (1-33%) -Necrotic Tissue Type Adherent Slough -Texture (Huma-wound Skin Appearance) Assessed, Scarring -Moisture (Huma-wound Skin Appearance Assessed,Dry/ ) Scaly -Color (Huma-wound Skin Appearance) Assessed -Temperature (Huma-wound Skin No Abnormality Appearance) (Pt Warm) -Tenderness on Palpation (Huma-wound No Skin Appearance) -Ulcer Cleansing Rinsed/ Irrigated with Saline -Foul Odor after Cleansing Yes, Due to Product Use -Anesthetic Used 5% Lidocaine Gel CLARY - Nurse 2 - General Ulcer CM Notes Start: 09/03/19 08:24 Freq: Status: Active Protocol: Activity Type Activity Date Activity User E-Sign Co-Sign Detail Recorded Client Recorded Date Recorded By Document 09/17/19 09:54 [id number] 09/17/19 09:55 DV 09/17/19 09:54 Wound Center Nurse 2 [Procedure/Treatment] -Time 09:54 -Correct Patient Yes -Correct Side, Site, Position Yes -Correct Procedure Yes -Procedure Performed Yes -Type of Procedure Debridement -Clinical Debridement Subcutaneous -Post Debridement Size (cm) - Length 0.5 -Post Debridement Size (cm) - Width 0.4 -Post Debridement Size (cm) - Depth 0.1 -Total Square Cm 0.20 -Wound/Ulcer Outcome Not Healed -Ulcer Cleansing Rinsed/ Irrigated with Saline -Foul Odor after Cleansing No -Bioengineered Tissue No -Bleeding Controlled with Pressure -Offloading No -Type of Offloading Surgical Shoe -Treatment Response Procedure Tolerated Well [See Physician Procedure note for Specifics] Pain Scale: 0-10 Numeric [Pain] -Is Patient Pain Free? Yes Musculoskeletal: - - No pain with manipulation of ulcer site. Significantly contracted remaining lesser digits. Neurological: - - Epicritic sensation grossly absent to bilateral lower extremities consistent with patient's diabetic status Psych/Mental Status: Normal Affect, Appropriate Debridement Note Post-Debridement Measurements/Treatment WC - Nurse 2 - General Ulcer CM Notes Start: 09/03/19 08:24 Freq: Status: Active Protocol: Activity Type Activity Date Activity User E-Sign Co-Sign Detail Recorded Client Recorded Date Recorded By Document 09/03/19 09:11 DV [id number] 09/03/19 09:15 DV Document 09/17/19 09:54 DV [id number] 09/17/19 09:55 DV 09/03/19 09/17/19 09:11 09:54 Wound Center Nurse 2 #1 R 2nd toe amp site -Time 09:12 09:54 -Correct Patient Yes Yes -Correct Side, Site, Position Yes Yes -Correct Procedure Yes Yes -Procedure Performed Yes Yes -Type of Procedure Debridement Debridement -Clinical Debridement Subcutaneous Subcutaneous -Post Debridement Size (cm) - Length 1.9 0.5 -Post Debridement Size (cm) - Width 1.4 0.4 -Post Debridement Size (cm) - Depth 0.6 0.1 -Total Square Cm 2.66 0.20 -Wound/Ulcer Outcome Not Healed Not Healed -Ulcer Cleansing Rinsed/ Rinsed/ Irrigated with Irrigated with Saline Saline -Foul Odor after Cleansing No No -Bioengineered Tissue No No -Bleeding Controlled with Pressure Pressure -Offloading No No -Type of Offloading Surgical Shoe Surgical Shoe -Treatment Response Procedure Procedure Tolerated Well Tolerated Well Pain Scale: 0-10 Numeric Is Patient Pain Free? Yes Yes Wound debrided: Right distal foot Laterality: Right Type of Debridement: Excisional debridement Anesthesia Used: 4% Lidocaine Solution Depth: in the subcutaneous layer Percentage of wound debrided: 100 Instrument Used: 5mm curette Tissue Removed: Adherent slough, fibrin, devitalized subcutaneous tissue Severity: Fat Layer Exposed Amount of bleeding with debridement: Mild Bleeding Controlled with: Pressure Patient tolerated procedure well Assessment/Plan Active Problems (Last Reviewed 09/02/19 @ 14:25 by GRAHAM Briceño) Ulcer of right foot with fat layer exposed (Acute) Type 2 diabetes mellitus with diabetic polyneuropathy (Acute) Rheumatoid arthritis (Acute) Hammer toe of left foot (Acute) Hammer toe of right foot (Acute) Assessment: As noted above Plan: Patient was carefully examined and evaluated again today in detail. Patient is status post debridement of all necrotic, nonviable, infected soft tissue and bone of the right foot with open right second toe amputation. Procedure was performed August 22, 2019. Patient continues to reside in a skilled nursing at this time and is receiving daily Camilla dressing changes. A subcutaneous debridement was performed as noted in the clinical panel. Another significant improvement was appreciated this week. Next, a dressing was applied consisting of Camilla to the base, followed by an overlying dry sterile dressing. The patient is to have her dressing change in this manner on a daily basis. Patient was instructed to keep the area offloaded at all times. She is to continue to be nonweightbearing to the right foot. If she needs to move a short distance or transfer she is able to do this with only heel weightbearing to the right side. Recommend a diet high in protein to help optimize ulcer healing potential. Patient was educated on the signs and symptoms of local and systemic infection and she is to go to the emergency room immediately should she notice any of these. All questions were answered to her satisfaction. Patient will follow back up at the wound healing center in 1 week to check on progress, or sooner if needed before then.
== END 2019-09-18 23:59 | disposition home or self-care (01) ==
LOC: WC 09:15
PROVIDERS: PCP Family Medicine; Referring Provider Podiatrist; Visit Provider Podiatrist
DX: E11.621 Type 2 diabetes mellitus with foot ulcer (principal); L97.512 Non-pressure chronic ulcer of other part of right foot with fat layer exposed; E11.42 Type 2 diabetes mellitus with diabetic polyneuropathy; M20.42 Other hammer toe(s) (acquired), left foot; M20.41 Other hammer toe(s) (acquired), right foot; G40.909 Epilepsy, unspecified, not intractable, without status epilepticus; M06.9 Rheumatoid arthritis, unspecified; I48.0 Paroxysmal atrial fibrillation; I51.81 Takotsubo syndrome; I10 Essential (primary) hypertension; E78.5 Hyperlipidemia, unspecified; M79.7 Fibromyalgia; K21.9 Gastro-esophageal reflux disease without esophagitis; G89.4 Chronic pain syndrome; F32.9 Major depressive disorder, single episode, unspecified; E66.01 Morbid (severe) obesity due to excess calories; Z68.41 Body mass index [BMI] 40.0-44.9, adult; Z79.82 Long term (current) use of aspirin; Z79.4 Long term (current) use of insulin; Z79.899 Other long term (current) drug therapy; I25.2 Old myocardial infarction; Z89.421 Acquired absence of other right toe(s)
CPT/HCPCS: 11042; 99213; G0463

== ENCOUNTER 2019-10-01 09:30 | Outpatient (RCR) | payer MEDICARE, OTHER, SELFPAY ==
[2019-09-19 01:11] VITALS: BP 164/53; PULSE 60; RESP 16; TEMP 36.2
[2019-09-24 09:33] VITALS: BP 156/96; PULSE 61; RESP 18; TEMP 36.6; BMI 40.7
--- NOTE | 2019-09-24 12:15 | PN.PCM_ITS ---
(1) Ulcer of right foot with fat layer exposed Status: Acute Current Visit: No Code(s): L97.512 - Non-pressure chronic ulcer of other part of right foot with fat layer exposed (2) Type 2 diabetes mellitus with diabetic polyneuropathy Status: Acute Current Visit: No Code(s): E11.42 - Type 2 diabetes mellitus with diabetic polyneuropathy (3) Rheumatoid arthritis Status: Acute Current Visit: No Code(s): M06.9 - Rheumatoid arthritis, unspecified (4) Hammer toe of left foot Status: Acute Current Visit: No Code(s): M20.42 - Other hammer toe(s) (acquired), left foot (5) Hammer toe of right foot Status: Acute Current Visit: No Code(s): M20.41 - Other hammer toe(s) (acquired), right foot Type of Wound Date of Service: 09/24/19 Chief Complaint: Ulcer to right foot History of Wound: This patient presents to the wound healing center today for follow-up of ulcer to her right foot and area of open surgical site. Patient is status post debridement of all nonviable, infected, necrotic soft tissue and bone of the right foot with open right second toe amputation performed on 08/22/2019. Following patient's discharge from the hospital she has been at a halfway facility where she is been having wound VAC changes 3 times weekly. Patient relates she has been feeling much better since her surgery and feels the area is healing. Patient currently denies any feelings of nausea, vomiting, fever, chills. Progress of Wound: Continued improvement appreciated. Patient currently denies any feelings of nausea, vomiting, fever, chills. - Physical Exam Vital Signs Temp Pulse Resp BP 97.8 F 61 18 156/96 H 09/24/19 09:33 09/24/19 09:33 09/24/19 09:33 09/24/19 09:33 General: Alert, Oriented x3, Cooperative, No apparent distress Extremities: No cyanosis, Capillary Refill Less than 3 Seconds - To all remaining digits of the right foot, No Calf Tenderness - Negative Kusum and Padilla signs bilateral, Peripheral Pulses Normal - DP and PT pulses palpable Skin: Ulcer/ Wound - Ulcer to right foot/open surgical site. This site continues to improve with increasing amounts of granular tissue. The base remains a majority of granular tissue along with areas of adherent slough, fibrin, devitalized subcutaneous tissue. There is no malodor and no purulence noted. No probing, tracking, or undermining. Wound Measurements and Assessment WC - Nurse 1 - General Ulcer Measurement Start: 09/24/19 09:30 Freq: Status: Active Protocol: Activity Type Activity Date Activity User E-Sign Co-Sign Detail Recorded Client Recorded Date Recorded By Document 09/24/19 09:33 [id number] 09/24/19 09:41 09/24/19 09:33 Wound Center Nurse 1 [Ulcer Assessment] #1 R 2nd toe amp site -Combined with other wound No -Current Size (cm) - Length 0 -Current Size (cm) - Width 0 -Current Size (cm) - Depth 0 -Total Square Cm 0 -Photo Taken Yes -Epithelialization Large 67-100% -Tunneling No -Undermining/Tunneling No -Circular Undermining No [Edema Assessment] -Lower Limb Edema Present No WC - Nurse 2 - General Ulcer CM Notes Start: 09/24/19 09:30 Freq: Status: Active Protocol: Activity Type Activity Date Activity User E-Sign Co-Sign Detail Recorded Client Recorded Date Recorded By Document 09/24/19 10:09 [id number] 09/24/19 10:13 DV 09/24/19 10:09 Wound Center Nurse 2 [Procedure/Treatment] #1 R 2nd toe amp site -Time 10:10 -Correct Patient Yes -Correct Side, Site, Position Yes -Correct Procedure Yes -Procedure Performed Yes -Type of Procedure Debridement -Clinical Debridement Subcutaneous -Post Debridement Size (cm) - Length 0.4 -Post Debridement Size (cm) - Width 0.4 -Post Debridement Size (cm) - Depth 0.1 -Total Square Cm 0.16 -Wound/Ulcer Outcome Not Healed -Ulcer Cleansing Rinsed/ Irrigated with Saline -Foul Odor after Cleansing No -Bioengineered Tissue No -Bleeding Controlled with Pressure -Offloading Yes -Type of Offloading Knee Walker -Treatment Response Procedure Tolerated Well [See Physician Procedure note for Specifics] Pain Scale: 0-10 Numeric [Pain] -Is Patient Pain Free? Yes Musculoskeletal: - - No pain with manipulation of ulcer site. Significantly contracted remaining lesser digits. Neurological: - - Epicritic sensation grossly absent to bilateral lower extremities consistent with patient's diabetic status Psych/Mental Status: Normal Affect, Appropriate Debridement Note Post-Debridement Measurements/Treatment WC - Nurse 2 - General Ulcer CM Notes Start: 09/24/19 09:30 Freq: Status: Active Protocol: Activity Type Activity Date Activity User E-Sign Co-Sign Detail Recorded Client Recorded Date Recorded By Document 09/24/19 10:09 DV [id number] 09/24/19 10:13 DV 09/24/19 10:09 Wound Center Nurse 2 #1 R 2nd toe amp site -Time 10:10 -Correct Patient Yes -Correct Side, Site, Position Yes -Correct Procedure Yes -Procedure Performed Yes -Type of Procedure Debridement -Clinical Debridement Subcutaneous -Post Debridement Size (cm) - Length 0.4 -Post Debridement Size (cm) - Width 0.4 -Post Debridement Size (cm) - Depth 0.1 -Total Square Cm 0.16 -Wound/Ulcer Outcome Not Healed -Ulcer Cleansing Rinsed/ Irrigated with Saline -Foul Odor after Cleansing No -Bioengineered Tissue No -Bleeding Controlled with Pressure -Offloading Yes -Type of Offloading Knee Walker -Treatment Response Procedure Tolerated Well Pain Scale: 0-10 Numeric Is Patient Pain Free? Yes Wound debrided: Right distal foot Laterality: Right Type of Debridement: Excisional debridement Anesthesia Used: 4% Lidocaine Solution Depth: in the subcutaneous layer Percentage of wound debrided: 100 Instrument Used: 5mm curette Tissue Removed: Adherent slough, fibrin, devitalized subcutaneous tissue Severity: Fat Layer Exposed Amount of bleeding with debridement: Mild Bleeding Controlled with: Pressure Patient tolerated procedure well Assessment/Plan Assessment: As noted above Plan: Patient was carefully examined and evaluated again today in detail. Kiarra ent is status post debridement of all necrotic, nonviable, infected soft tissue and bone of the right foot with open right second toe amputation. Procedure was performed August 22, 2019. Patient continues to reside in a halfway at this time and is receiving daily Camilla dressing changes. Another subcutaneous debridement was performed as noted in the clinical panel. Continued improvement noted. If she continues to make the same progress, I would anticipate healing within a couple of weeks. Next, a dressing was applied consisting of Camilla to the base, followed by an overlying dry sterile dressing. The patient is to have her dressing change in this manner on a daily basis. Patient was instructed to keep the area offloaded at all times. She is to continue to be nonweightbearing to the right foot. If she needs to move a short distance or transfer she is able to do this with only heel weightbearing to the right side. Recommend a diet high in protein to help optimize ulcer healing potential. Patient was educated on the signs and symptoms of local and systemic infection and she is to go to the emergency room immediately should she notice any of these. All questions were answered to her satisfaction. Patient will follow back up at the wound healing center in 1 week to check on progress, or sooner if needed before then.
[2019-10-01 09:25] VITALS: BP 124/74; PULSE 100; RESP 20; TEMP 36.4; BMI 40.7
--- NOTE | 2019-10-01 10:28 | PN.PCM_ITS ---
(1) Ulcer of right foot with fat layer exposed Status: Acute Current Visit: No Code(s): L97.512 - Non-pressure chronic ulcer of other part of right foot with fat layer exposed (2) Type 2 diabetes mellitus with diabetic polyneuropathy Status: Acute Current Visit: No Code(s): E11.42 - Type 2 diabetes mellitus with diabetic polyneuropathy (3) Rheumatoid arthritis Status: Acute Current Visit: No Code(s): M06.9 - Rheumatoid arthritis, unspecified (4) Hammer toe of left foot Status: Acute Current Visit: No Code(s): M20.42 - Other hammer toe(s) (acquired), left foot (5) Hammer toe of right foot Status: Acute Current Visit: No Code(s): M20.41 - Other hammer toe(s) (acquired), right foot Type of Wound Date of Service: 10/01/19 Chief Complaint: Ulcer to right foot History of Wound: This patient presents to the wound healing center today for follow-up of ulcer to her right foot and area of open surgical site. Patient is status post debridement of all nonviable, infected, necrotic soft tissue and bone of the right foot with open right second toe amputation performed on 08/22/2019. Following patient's discharge from the hospital she has been at a senior living facility where she is been having wound VAC changes 3 times weekly. Patient relates she has been feeling much better since her surgery and feels the area is healing. Patient currently denies any feelings of nausea, vomiting, fever, chills. Progress of Wound: Site appears healed today. Patient currently denies any feelings of nausea, vomiting, fever, chills. - Physical Exam Vital Signs Temp Pulse Resp BP 97.6 F L 100 20 H 124/74 H 10/01/19 09:25 10/01/19 09:25 10/01/19 09:25 10/01/19 09:25 General: Alert, Oriented x3, Cooperative, No apparent distress Extremities: No cyanosis, Capillary Refill Less than 3 Seconds - To all remaining digits of the right foot, No Calf Tenderness - Negative Kusum and Padilla signs bilateral, Peripheral Pulses Normal - DP and PT pulses palpable Skin: Ulcer/ Wound - Site is healed today with no surrounding signs of local infection appreciated. Wound Measurements and Assessment WC - Nurse 1 - General Ulcer Measurement Start: 09/24/19 09:30 Freq: Status: Active Protocol: Activity Type Activity Date Activity User E-Sign Co-Sign Detail Recorded Client Recorded Date Recorded By Document 10/01/19 09:25 DL [id number] 10/01/19 09:31 DL 10/01/19 09:25 Wound Center Nurse 1 [Ulcer Assessment] #1 R 2nd toe amp site -Current Size (cm) - Length 0.1 -Current Size (cm) - Width 0.1 -Current Size (cm) - Depth 0.1 -Total Square Cm 0.01 -Photo Taken No -Exudate Amt None Present -Wound Margin Flat & Intact -Granulation Amt Large (67-100%) -Granulation Quality [place] -Necrosis Amt Small (1-33%) -Necrotic Tissue Type Adherent Slough -Structure Exposed N/A -Texture (Huma-wound Skin Appearance) Scarring -Moisture (Huma-wound Skin Appearance Dry/Scaly ) -Color (Huma-wound Skin Appearance) No Abnormality -Temperature (Huma-wound Skin No Abnormality Appearance) (Pt Warm) -Tenderness on Palpation (Huma-wound No Skin Appearance) -Ulcer Cleansing Rinsed/ Irrigated with Saline -Anesthetic Used 5% Lidocaine Gel WC - Nurse 2 - General Ulcer CM Notes Start: 09/24/19 09:30 Freq: Status: Active Protocol: Activity Type Activity Date Activity User E-Sign Co-Sign Detail Recorded Client Recorded Date Recorded By Document 10/01/19 09:41 DV [id number] 10/01/19 09:44 DV 10/01/19 09:41 Wound Center Nurse 2 [Procedure/Treatment] -Time 09:43 -Correct Patient Yes -Correct Side, Site, Position Yes -Correct Procedure No -Procedure Performed No -Post Debridement Size (cm) - Length 0 -Post Debridement Size (cm) - Width 0 -Post Debridement Size (cm) - Depth 0 -Total Square Cm 0 -Wound/Ulcer Outcome Healed- Epithelialized [See Physician Procedure note for Specifics] Musculoskeletal: - - No pain in area of previous ulcer site today. Significantly contracted remaining lesser digits. Neurological: - - Epicritic sensation grossly absent to bilateral lower extremities consistent with patient's diabetic status Psych/Mental Status: Normal Affect, Appropriate Debridement Note Post-Debridement Measurements/Treatment WC - Nurse 2 - General Ulcer CM Notes Start: 09/24/19 09:30 Freq: Status: Active Protocol: Activity Type Activity Date Activity User E-Sign Co-Sign Detail Recorded Client Recorded Date Recorded By Document 09/24/19 10:09 DV [id number] 09/24/19 10:13 DV Document 10/01/19 09:41 DV [id number] 10/01/19 09:44 DV 09/24/19 10/01/19 10:09 09:41 Wound Center Nurse 2 #1 R 2nd toe amp site -Time 10:10 09:43 -Correct Patient Yes Yes -Correct Side, Site, Position Yes Yes -Correct Procedure Yes No -Procedure Performed Yes No -Type of Procedure Debridement -Clinical Debridement Subcutaneous -Post Debridement Size (cm) - Length 0.4 0 -Post Debridement Size (cm) - Width 0.4 0 -Post Debridement Size (cm) - Depth 0.1 0 -Total Square Cm 0.16 0 -Wound/Ulcer Outcome Not Healed Healed- Epithelialized -Ulcer Cleansing Rinsed/ Irrigated with Saline -Foul Odor after Cleansing No -Bioengineered Tissue No -Bleeding Controlled with Pressure -Offloading Yes -Type of Offloading Knee Walker -Treatment Response Procedure Tolerated Well Pain Scale: 0-10 Numeric Is Patient Pain Free? Yes No debridement was completed today Assessment/Plan Assessment: As noted above Plan: Patient was carefully examined and evaluated again today in detail. Patient is status post debridement of all necrotic, nonviable, infected soft tissue and bone of the right foot with open right second toe amputation. Procedure was performed August 22, 2019. Patient continues to reside in a senior living at this time and is receiving daily Camilla dressing changes. Upon evaluation, it was noted that the patient is healed at this time with no signs of local infection appreciated. Patient can continue to keep the area padded and she is to continue to ambulate for at least the next 2 weeks in a surgical shoe so the area continues to be offloaded. The skin is to continue to strengthen and heal. She is able to begin to slowly increase weightbearing status and activity with the assistance of physical therapy at her senior living. Since the patient is healed from her surgery at this time, she says she would like to follow-up in the future with her old grain distributor in [place] as this is closer to her home. She was instructed that she could follow-up with me at anytime as needed. Patient was educated on the signs and symptoms of local and systemic infection and she is to go to the emergency room immediately should she notice any of these. All questions were answered to her satisfaction. Patient will be discharged from the wound healing center at this time, but she is to follow-up for any reason as needed.
--- NOTE | 2019-10-01 15:58 | WC ---
This nurse spoke with Kimberlee, nurse at [facility] in regards to patient's orders. Clarified with no more questions
== END 2019-10-17 23:59 ==
LOC: WC 09:30
PROVIDERS: PCP Family Medicine; Referring Provider Podiatrist; Visit Provider Podiatrist
DX: E11.621 Type 2 diabetes mellitus with foot ulcer (principal); E11.42 Type 2 diabetes mellitus with diabetic polyneuropathy; M06.9 Rheumatoid arthritis, unspecified; L97.512 Non-pressure chronic ulcer of other part of right foot with fat layer exposed; M20.42 Other hammer toe(s) (acquired), left foot; M20.41 Other hammer toe(s) (acquired), right foot
CPT/HCPCS: 11042; 99212; G0463

== ENCOUNTER 2019-10-18 20:30 | Emergency (ER) | payer MEDICARE, OTHER, MEDICAID, SELFPAY ==
[2019-10-18 20:32] VITALS: PULSE 103; RESP 20; TEMP 36.9; O2SAT 97; BMI 46.0
[2019-10-18 20:38] VITALS: BP 195/89; O2SAT 96
--- NOTE | 2019-10-18 20:44 | EKG12_ITS ---
Test Reason : DYSRHYTHMIA Blood Pressure : / mmHG Vent. Rate : 093 BPM Atrial Rate : 093 BPM P-R Int : 162 ms QRS Dur : 092 ms QT Int : 398 ms P-R-T Axes : 020 -39 075 degrees QTc Int : 494 ms Normal sinus rhythm Left axis deviation Prolonged QT Abnormal ECG Confirmed by ABIMAEL CURRY, CAROLE ([id number]), photographic editor VIDAL MCDERMOTT ([id number]) on 10/19/2019 10:21:29 AM Referred By: GEORGE Confirmed By:CAROLE VARGHESE MD
--- NOTE | 2019-10-18 20:50 | RAD_ITS ---
STUDY: X-RAY CHEST REASON FOR EXAM: Female, 64 years old. 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 There is no demonstrated pleural abnormality. Normal size heart. Normal mediastinum and judith. Normal visualized pulmonary arteries. Normal visualized aortic arch and descending thoracic aorta. Normal visualized thoracic spine. Normal visualized ribs, clavicles, and shoulders. There is no demonstrated abnormality of the visualized soft tissue structures of the upper abdomen. RAD/Chest 1 View (Portable) IMPRESSION: Approximately 1 cm left suprahilar density most likely pulmonary vessel cannot exclude pulmonary nodule, CT chest follow-up is recommended Electronically Signed: Alexis Abarca, at 21:40 EST Tel , Service support ,
[2019-10-18 21:07] VITALS: BP 185/92
[2019-10-18 21:10] VITALS: PULSE 84; RESP 18; O2SAT 96
[2019-10-18 21:10] LABS: Absolute Lymphocyte Count 2.48 X10^3/uL (0.83-4.51); Absolute Neutrophil Count 8.5 X10^3/uL (2.0-7.7); Basophil# 0.08 X10^3/uL; Basophil% 0.7 % (0-1); Eosinophil# 0.27 X10^3/uL; Eosinophils% 2.2 % (0-5); Hematocrit 38.6 % (37-47); Hemoglobin 12.4 g/dL (12.0-15.0); Lymphocyte # 2.48 X10^3/ul (4.0); Lymphocyte % 20.2 % (19-41); Mean Corp Hgb Conc 32.1 g/dL (32-36); Mean Corpuscular Hgb 27.8 pg (27.0-32.0); Mean Corpuscular Volume 86.5 fL (81-99); Mean Platelet Vol. 10.1 fl (6.2-12.0); Monocyte# 0.94 X10^3/uL; Monocyte% 7.6 % (0-10); NRBC Flagged by Analyzer 0 % (0-5); Neutrophil # 8.48 X10^3/uL (2.7-7.7); Neutrophil % 68.9 % (47-70); Platelet Count 271 K/mm3 (150-450); RBC Distribution Width CV 14.6 % (11.6-14.6); RBC Distribution Width SD 46.4 fl (35.1-43.9); Red Blood Count 4.46 M/mm3 (4.2-5.4); White Blood Count 12.3 K/mm3 (4.4-11.0)
[2019-10-18 21:45] LABS: BNP,B-Type NATRIURETIC PEPTIDE 130.7 pg/mL (0-100)
[2019-10-18 21:47] LABS: Anion Gap 5 (5-15); BUN 14 mg/dL (7-18); BUN/Creat Ratio 12.4 RATIO (10-20); Calcium,Total 8.9 mg/dL (8.5-10.1); Chloride 102 mmol/L (98-107); Creatinine, Serum 1.13 mg/dL (0.55-1.02); EST Glomerular Filtration Rate 51 mL/min (>60); Est Glom Filt Rate - Afr Amer 62 mL/min (>60); Estimated Creatinine Clearance 46.46 ml/min; Glucose 361 mg/dL (74-106); Potassium 4.2 mmol/L (3.5-5.1); Sodium Level 132 mmol/L (136-145)
--- NOTE | 2019-10-18 21:56 | ED.DCSUM_ITS ---
- ER Visit Summary Date of Service: 10/18/19 Chief Complaint: Shortness of breath History of Present Illness: The patient is a [address] Terra Parks. She is shortness of breath beginning hour ago while she was at rest. Is moderate currently and at worst. States is worsened by exertion relieved by rest. She denies any chest pain. No fever, chills, or cough. Patient reports this is similar to when she had CHF in the past. She does not do daily weights. She reports she does take 20 mg of Lasix a day. Physical Examination: Vitals: Stable. Afebrile. General: Well-nourished and well-developed. Head: Normocephalic atraumatic. Neck: Supple, no lymphadenopathy. No JVD. Nontender. Cardiovascular: Regular rate and rhythm. No murmurs. Respiratory: No respiratory distress. Clear to auscultation bilaterally. No crackles. Abdominal: Soft, nontender, nondistended, normal bowel sounds. No guarding, rebound, or peritoneal signs. Back: Nontender. Extremities: Nontender, no edema. Skin: Normal color, no rash. Neurologic: Alert and oriented ?3. Cranial nerves II through XII are intact. Normal strength and sensation. Psych: Normal affect. Test Results: EKG is sinus at 93 with a QTC of 494. This essentially unchanged from last month. At that time her QTC was 480. Troponin is negative. BT [employer] is 130.7. Chem-7 shows a sodium 133, creatinine 1.13, glucose 361. CBC shows a white count 12.3. Clinical Impression(s) from Imaging Studies Chest X-Ray 10/18/19 20:50 IMPRESSION: Approximately 1 cm left suprahilar density most likely pulmonary vessel cannot exclude pulmonary nodule, CT chest follow-up is recommended Electronically Signed: Alexis Abarca, at 21:40 EST Tel , Service support , Chest CT 10/18/19 22:12 IMPRESSION: Thoracic and lumbar spine kyphosis, multilevel spondylosis Multiple hyperdensities within the stomach likely ingested food Thoracic and lumbar spine kyphosis, multilevel spondylosis The chest radiographic finding within the left upper lobe, suprahilar region represents a pulmonary vessel, there are no suspicious pulmonary nodules within the left upper lobe 3.5 mm stable likely benign right upper lobe pulmonary nodule, six-month CT chest follow-up for stability recommended Scattered mild pulmonary scarring Electronically Signed: Alexis Abarca, at 23:42 EST Tel , Service support , Emergency Department Course and Treatment: Patient reports that she did not take her evening medications. She was given a dose of insulin subcu. She was given Tylenol p.o. and Coreg p.o. We are going to give her Lopressor IV, but her IV infiltrated. She refused a new IV. Treatment Plan: Patient was discussed with Dr. Ellison. We will increase her Coreg from 6.25 mg twice a day to 12.5 mg twice a day. She would like to follow-up in 1 to 2 weeks for another exam. She instructed to follow-up with her primary care physician 1 to 2 days if not improving. Return to the emergency department for any worsening symptoms. Disposition: To home in improved and stable condition. Impression: 1. Dyspnea. 2. Hypertension. 3. Pulmonary nodule. This note was generated with [employer] dictation software. It may contain incorrect words, spelling, and punctuation that were not noted in review of the chart prior to signing ED Disposition - Plan for ED Patient: Instructions: ED Dyspnea, PULMONARY NODULE, Solitary Prescriptions: Carvedilol [Coreg] 12.5 mg PO BID #60 tab Prescription Printed Referrals: Son Ellison MD [STAFF PHYSICIAN] - 1-2 Weeks Devan Parks MD [Primary Care Provider] - 1-2 Days if not improving
[2019-10-18 22:11] VITALS: BP 170/84; PULSE 91; RESP 16; O2SAT 98
--- NOTE | 2019-10-18 22:12 | CT_ITS ---
STUDY: CT CHEST WITHOUT CONTRAST REASON FOR EXAM: Female, 64 years old. ABNORMAL CXR, HERE FOR SOB, NAUSEA, HX SZ,CHF,HTN,MO, DIAB RADIATION DOSAGE (If Supplied By Facility): CTDIvol = ( 20.15 ) mGy, DLP = ( 659.53 ) mGycm TECHNIQUE: Transaxial imaging was performed without the administration of intravenous contrast material. Individualized dose optimization techniques were used for this CT. COMPARISON: CT chest 07/20/2018. And CTA chest 04/18/2018 FINDINGS: The lungs are normal. There is no demonstrated pleural abnormality. There is a stable 3.5 mm right upper lobe pulmonary nodule. Normal heart and pericardium. There are multiple hyperdensities within the stomach. Normal mediastinum. Normal hilar regions. Normal unenhanced pulmonary arteries. Normal aorta arch and descending thoracic aorta. There is thoracic and lumbar spine kyphosis and multilevel spondylosis. The chest radiographic finding within the left upper lobe suprahilar region represents a pulmonary vessel. There are no suspicious pulmonary nodules. There is mild scattered pulmonary scarring. There is no demonstrated abnormality of the visualized upper abdomen. CT/Chest without Contrast IMPRESSION: Thoracic and lumbar spine kyphosis, multilevel spondylosis Multiple hyperdensities within the stomach likely ingested food Thoracic and lumbar spine kyphosis, multilevel spondylosis The chest radiographic finding within the left upper lobe, suprahilar region represents a pulmonary vessel, there are no suspicious pulmonary nodules within the left upper lobe 3.5 mm stable likely benign right upper lobe pulmonary nodule, six-month CT chest follow-up for stability recommended Scattered mild pulmonary scarring Electronically Signed: Alexis Abarca, at 23:42 EST Tel , Service support ,
[2019-10-18] MEDS: Insulin Lispro 100 UNIT/ML INSULN.PEN 10 UNIT SC (22:43)
[2019-10-18] MEDS: Carvedilol 12.5 MG Tablet PO (22:43)
[2019-10-18] MEDS: Acetaminophen 500 MG Tablet 1000 MG PO (23:30)
[2019-10-19 00:31] VITALS: BP 170/80; PULSE 81; RESP 18; O2SAT 98
== END 2019-10-19 00:32 | disposition home or self-care (01) ==
LOC: ED 21:29
PROVIDERS: Emergency Provider Emergency Medicine; PCP Family Medicine
DX: R06.00 Dyspnea, unspecified (principal); I10 Essential (primary) hypertension; R91.1 Solitary pulmonary nodule; Z79.82 Long term (current) use of aspirin; Z79.899 Other long term (current) drug therapy
CPT/HCPCS: 71045; 71250; 80048; 83880; 84484; 85025; 93005; 96372; 99285; A4216

== ENCOUNTER 2020-01-11 13:39 | Emergency (ER) | payer MEDICARE, MEDICAID, SELFPAY ==
[2019-12-03 11:43] VITALS: BMI 46.0
[2020-01-11] VITALS (7 sets, daily range): BP systolic 138–164; BP diastolic 71–90; PULSE 76–87; RESP 17–20; TEMP 36.4–36.5; O2SAT 95–99; BMI 46.0
--- NOTE | 2020-01-11 14:43 | EKG12_ITS ---
Test Reason : SOB Blood Pressure : / mmHG Vent. Rate : 081 BPM Atrial Rate : 081 BPM P-R Int : 148 ms QRS Dur : 096 ms QT Int : 446 ms P-R-T Axes : -10 -41 036 degrees QTc Int : 518 ms Normal sinus rhythm Left axis deviation Prolonged QT Poor R wave progression Abnormal ECG Confirmed by JOSE MANUEL CURRY, SHAHIDA ([id number]), market editor MAIKEL MULLEN ([id number] on 01/14/2020 2:39:52 PM Referred By: TAMMY/ Confirmed By:SHAHIDA RICHARD MD
--- NOTE | 2020-01-11 15:00 | ED.VISSUMM ---
- ER Visit Summary Date of Service: 01/11/20 Chief Complaint: Shortness of breath History of Present Illness: The patient is a 64 F presenting with shortness of breath. Patient states this started this morning. She denies fever or cough. Denies chest pain. She states that she felt like she was wheezing and felt like a breathing treatment may help her. She denies history of asthma or COPD. She has a history of CHF. She denies increasing leg swelling. She takes Lasix as needed and has not been taking this. She is not a smoker. Denies other complaints. Physical Examination: Vitals are stable. Patient is afebrile. Alert no acute distress. HEENT exam is unremarkable. Neck is supple. Lungs are clear and equal bilaterally. Heart is regular rate and rhythm. Abdomen is soft nontender nondistended. Extremities are unremarkable. Skin is warm and dry. No focal neurologic deficit. Remainder of exam is unremarkable. Emergency Department Course and Treatment: Patient was given albuteol. CBC shows white count 14.1. Chemistries normal except for glucose 293, creatinine 1.1. Troponin is negative. BNP 56.9. Chest x-ray shows no acute process. EKG is sinus rate of 81 with no acute changes. On reevaluation, patient is feeling improved. Her ambulatory pulse ox is 94% on room air. Patient feels improved and would like to go home. She will follow-up with her primary care physician. Advised return to ED for worsening complaints. Disposition: Discharge home Impression: Dyspnea This note was generated with [employer] dictation software. It may contain incorrect words, spelling, and punctuation that were not noted in review of the chart prior to signing ED Disposition - Plan for ED Patient: Instructions: ED Dyspnea Referrals: Devan Parks MD [Primary Care Provider] -
[2020-01-11] MEDS: Albuterol 2.5 MG/3 ML VIAL.NEB. INHALATION (15:01)
[2020-01-11 15:14] LABS: Absolute Lymphocyte Count 1.57 X10^3/uL (0.83-4.51); Absolute Neutrophil Count 11.4 X10^3/uL (2.0-7.7); Basophil# 0.08 X10^3/uL; Basophil% 0.6 % (0-1); Eosinophil# 0.15 X10^3/uL; Eosinophils% 1.1 % (0-5); Lymphocyte # 1.57 X10^3/ul (4.0); Lymphocyte % 11.2 % (19-41); Mean Corp Hgb Conc 31.7 g/dL (32-36); Mean Corpuscular Volume 88.4 fL (81-99); Monocyte# 0.78 X10^3/uL; Monocyte% 5.6 % (0-10); NRBC Flagged by Analyzer 0 % (0-5); Neutrophil # 11.41 X10^3/uL (2.7-7.7); Neutrophil % 81.1 % (47-70); Platelet Count 280 K/mm3 (150-450); RBC Distribution Width CV 13.8 % (11.6-14.6); RBC Distribution Width SD 43.7 fl (35.1-43.9); Red Blood Count 4.64 M/mm3 (4.2-5.4); White Blood Count 14.1 K/mm3 (4.4-11.0)
[2020-01-11 15:30] LABS: BNP,B-Type NATRIURETIC PEPTIDE 56.9 pg/mL (0-100)
[2020-01-11 15:37] LABS: Anion Gap 6 (5-15); BUN 13 mg/dL (7-18); BUN/Creat Ratio 11.8 RATIO (10-20); Calcium,Total 9.5 mg/dL (8.5-10.1); Chloride 104 mmol/L (98-107); EST Glomerular Filtration Rate 53 mL/min (>60); Est Glom Filt Rate - Afr Amer 64 mL/min (>60); Estimated Creatinine Clearance 47.73 ml/min; Glucose 293 mg/dL (74-106); Sodium Level 138 mmol/L (136-145)
--- NOTE | 2020-01-11 15:45 | RAD_ITS ---
STUDY: X-RAY CHEST REASON FOR EXAM: Female, 64 years old. CHEST PAIN TECHNIQUE: Single AP portable view of the chest. COMPARISON: 10/18/2019 FINDINGS: The lungs are clear and expanded. There is no demonstrated pleural abnormality. Normal size heart. Normal mediastinum and judith. Normal visualized pulmonary arteries. Normal visualized aortic arch and descending thoracic aorta. Normal visualized thoracic spine. Normal visualized ribs, clavicles, and shoulders. There is no demonstrated abnormality of the visualized soft tissue structures of the upper abdomen. RAD/Chest 1 View (Portable) IMPRESSION: Normal x-ray examination of the chest. Electronically Signed: Clarence Skinner MD at 16:05 EDT , Service support ,
--- NOTE | 2020-01-11 16:47 | ED.DEP ---
ED Disposition - Plan for ED Patient: Instructions: ED Dyspnea Referrals: Devan Parks MD [Primary Care Provider] -
--- OUTSIDE RECORDS SUMMARY | 2020-05-31 16:44 | XMS RPT_ITS | CCD ---
:1955 External Reference #:[id number] [facility] Care Team Providers Name Role Phone NELSON BELCHERE Unavailable Unavailable IMCA Unavailable Unavailable IMCA Unavailable Unavailable SCHEMAN EVELYNE Unavailable Unavailable STEVEN, S Unavailable Unavailable STEVEN, S Unavailable Unavailable BAGGOTT, FAJARDO Unavailable Unavailable BAGGOTT, FAJARDO Unavailable Unavailable STEVEN, S Unavailable Unavailable STEVEN, S Unavailable Unavailable STEVEN, S Unavailable Unavailable STEVEN, S Unavailable Unavailable STEVEN, S Unavailable Unavailable RUI PARKS Unavailable Unavailable STEVEN, S Unavailable Unavailable STEVEN, S Unavailable Unavailable STEVEN, S Unavailable Unavailable STEVEN, S Unavailable Unavailable STEVEN, S Unavailable Unavailable SHAHEEN (RN) Unavailable Unavailable [facility] Clinical [facility] Attending Unavailable Rui Parks Primary Care Provider Allergies Reported Allergen Reaction(s) Severity Date of Location Onset ciprofloxacin Rash Unknown, 06-10-2013 - [place] [facility] Translations: [ Moderate Other [place] CIPROFLOXACIN, Repository CIPROFLOXACIN, CIPROFLOXACIN] cyclobenzaprine Rash Unknown, 06-10-2013 - [place] [facility] Translations: [ Moderate Other [place] CYCLOBENZAPRINE, Repository CYCLOBENZAPRINE, CYCLOBENZAPRINE] ketorolac Translations: Other: See Unknown, High 03-22-2006 - [facility] [ KETOROLAC, KETOROLAC, Comments Ot r [place] KETOROLAC] Repository metFORMIN Translations: Other: See 06-28-2017 - [facility] [ METFORMIN, METFORMIN, Comments Ot r [place] METFORMIN] Repository Sulfamethoxazole / Hives Unknown, High 07-31-2017 - [facility] Trimethoprim Main [place] Translations: [ Repository SULFAMETHOXAZOLE-TRIMET HOPRIM] OTHER Translations: [ 05-27-2007 - [facility] OTHER, OTHER, OTHER] Other C ampus Repository Medications Medication Name Sig Date Prescriber Location Allopurinol allopurinol (ZYLOPRIM) [facility] Provider [facility] C [facility] 100 mg tablet Take 100 Provider (4419 5) mg by mouth once daily. 0 Active Comment: Take 100 mg by mouth once da jeffy. Aspirin aspirin, enteric coated Ccf Provider [facility] ([address]) (ASPIRIN, ENTERIC COATED) Provider 81 mg EC tablet Take 81 mg by mouth once daily. 0 Active Comment: Take 81 mg by mouth once [place]. Haloperidol haloperidol (HALDOL) 0.5 [facility] Provider [facility] mg tablet Take 0.5 mg by Provider (31 195) mouth twice daily. 0 Active Comment: Take 0.5 mg by mouth twice d aily. HYDROCODONE HYDROCODONE [facility] Provider [facility] BIT/ACETAMINOPHEN BIT/ACETAMINOPHEN Provider (0589 5) (VICODIN ORAL) (VICODIN ORAL) Take by mouth. 0 Active Comment: Take by mouth. insulin degludec INSULIN DEGLUDEC (TRESIBA Ccf Provide r [facility] FLEXTOUCH U-100 Provider (18198) SUBCUTANEOUS) Inject 120 mg subcutaneously once daily. 0 Active Comment: Inject 120 mg subcutaneously once daily. lamoTRIgine lamoTRIgine (LAMICTAL) 100 [facility] Provider C [facility] mg tablet Take 100 mg by Provider (86 457) mouth twice daily. 0 Active Comment: Take 100 mg by mouth twice d aily. levothyroxine Levothyroxine 50 mcg cap [facility] Provider [facility] Take by mouth once daily. Provider (6 6564) 0 Active Comment: Take by mouth once daily. Methadone methadone (DOLOPHINE) 5 mg [facility] Provider C [facility] (83720) tablet Take 10 mg by mouth Provider once daily. At bedtime 0 Active Comment: Take 10 mg by mouth once [place]. At bedtime montelukast montelukast (SINGULAIR) 10 [facility] Provider C [facility] mg tablet Take 10 mg by Provider (720 95) mouth daily at bedtime. 0 Active Comment: Take 10 mg by mouth daily at bedtime. Morphine morphine IR 15 mg tablet [facility] Provider [facility] (18682) Take 15 mg by mouth every Provider 4 hours as needed. 0 Active Comment: Take 15 mg by mouth every 4 hours as needed. naloxegol naloxegol (MOVANTIK) 25 mg [facility] Provider C [facility] (42899) tablet Take 25 mg by mouth Provider once daily. 0 Active Comment: Take 25 mg by mouth once [place]. Omeprazole Omeprazole 40 mg capsule [facility]cf Provider [facility] (15509) Take 40 mg by mouth once Provider daily. 0 Active Comment: Take 40 mg by mouth once [place]ty [place]. Ondansetron ondansetron orally 03-03-2018 [facility] disintegrating (ZOFRAN [facility] (4 4448) ODT) 8 mg disintegrating tablet Take 1 tablet by mouth every 8 hours as needed. 90 tablet 6 03/03/2018 Active Comment: Take 1 tablet by mouth every 8 hours as needed. pregabalin pregabalin (LYRICA) 75 mg [facility] Provider [facility] (07249) capsule Take 150 mg by Provider mouth twice daily. 0 Active Comment: Take 150 mg by mouth twice d aily. Promethazine promethazine (PHENERGAN) 12-18-2017 [facility] 25 mg tablet Take 1 (99583) tablet by mouth every 8 hours as needed (for nausea). 90 tablet 6 12/18/2017 Active promethazine (PHENERGAN) 25 mg tablet Take 25 [facility] (34666) mg by mouth three times daily. 0 Active Comment: Take 25 mg by mouth three ti mes daily. Take 1 tablet by mouth every 8 hours as needed (for nausea). rOPINIRole rOPINIRole 1 mg tablet Ccf Provider [facility] (98116) Take 1 mg by mouth once Provider daily. 0 Active Comment: Take 1 mg by mouth once alicia y. Sertraline sertraline (ZOLOFT) 100 [facility] Provider [facility] (71802) mg tablet Take 100 mg by Provider mouth once daily. 0 Active Comment: Take 100 mg by mouth once da jeffy. Simvastatin simvastatin 40 mg tablet [facility] Provider [facility] Take 40 mg by mouth daily Provider (4 8815) at bedtime. 0 Active Comment: Take 40 mg by mouth daily at bedtime. valsartan valsartan (DIOVAN) 80 mg [facility] Provider [facility] (41632) tablet Take 80 mg by Provider mouth once daily. 0 Active Comment: Take 80 mg by mouth once scotty ly. Problems Active Problems Category Problem Name Status Date Location Unclassified Active 08-31-2018 - [facility] [place] ([address]) Unclassified Unknown / UNK(Unknown) Active 07-19-2017 - [facility] (48973) Past or Other Problems Category Problem Name Status Date Location Nausea and vomiting Nausea with vomiting, Completed 02-17-2015 - [facility] (39737) Other disorders of [facility]rop[facility] stomach and duodenum [facility] (73908) Other gastrointestinal Diarrhea Completed 05-27-2007 - [facility] disorders (55291) Other nervous system Other disorders of Completed 12-31-2017 - C [facility] disorders nervous system [place] (00 000) Tuberculosis Nodular tuberculosis Com[facility]-2007 [facility] ([address] Results Result Name Value Range Unit Interpretation Flag Date Location cmp on 2020-05-19 Albumin [Mass/Vol] 3.3 3.4-4.8 G/dL Low 05-19-2020 [facility] ([place]) ([address]) Comment: Performed By: #### GFR, BMP, PBNP, TROP #### [address] [address] #### ANEU, ADIFF, CBC #### [address] [address] Albumin/Globulin [Mass ratio] 0.8 1.1-2.5 ratio Low 05-19-2020 [facility] ([place]) ([address]) Comment: Performed By: #### GFR, BMP, PBNP, TROP #### [address] [address] #### ANEU, ADIFF, CBC #### [address] [address] ALP [Catalytic activity/Vol] 194 40-135 U/L High 1 [facility] ([place] (0000 0) Comment: Performed By: #### GFR, BMP, PBNP, TROP #### [address] [address] #### ANEU, ADIFF, CBC #### [address] [address] ALT [Catalytic activity/Vol] 27 14-59 U/L Normal 1 [facility] ([place] (0000 0) Comment: Performed By: #### GFR, BMP, PBNP, TROP #### [place] [address] #### ANEU, ADIFF, CBC #### [address] [address] AST [Catalytic activity/Vol] 18 10-40 U/L Normal 1 [facility] ([place] (0000 0) Comment: Performed By: #### GFR, BMP, PBNP, TROP #### [place] [address] #### ANEU, ADIFF, CBC #### [address] [address] Bili Total 0.7 0.2-1.0 mg/dL Normal 05-19-2020 [facility] ([place]) ([address]) Comment: Result Comment: Use of this assay is not recommended for patients undergoing treatment with eltrombopag d ue to the potential for falsely elevated results. Performed By: #### GFR, BMP, PBNP, TROP #### [place] [address] #### ANEU, ADIFF, CBC #### [address] [address] Calcium [Mass/Vol] 9.5 8.4-10.2 mg/dL Normal 05-19-2020 [facility] ([place] (0000 0) Comment: Performed By: #### GFR, BMP, PBNP, TROP #### [place] [address] #### ANEU, ADIFF, CBC #### [address] [address] Chloride [Moles/Vol] 99 98-107 mmol/L Normal 0 [facility] ([place] (0000 0) Comment: Performed By: #### GFR, BMP, PBNP, TROP #### [address] [address] #### ANEU, ADIFF, CBC #### [address] [address] CO2 [Moles/Vol] 27 23-31 mmol/L Normal 05-19-2020 [facility] ([place]) ([address]) Comment: Performed By: #### GFR, BMP, PBNP, TROP #### [place] [address] #### ANEU, ADIFF, CBC #### [address] [address] Creatinine [Mass/Vol] 1.21 0.55-1.02 mg/dL High 05-19-20 [facility] ([place]) (0000 0) Comment: Performed By: #### GFR, BMP, PBNP, TROP #### [place] [address] #### ANEU, ADIFF, CBC #### [address] [address] Electrolyte Balance 9.0 mEq/L Normal 05-19-2020 [facility] ([place]) ([address]648) Comment: Performed By: #### GFR, BMP, PBNP, TROP #### [place] [address] #### ANEU, ADIFF, CBC #### [address] [address] Globulin (S) [Mass/Vol] 3.9 G/dL Normal 2019 [facility] ([place] ([address]) Comment: Performed By: #### GFR, BMP, PBNP, TROP #### [place] [address] #### ANEU, ADIFF, CBC #### [address] [address] Glucose [Mass/Vol] 311 80-115 mg/dL High 05-19-2020 [facility] ([place]) ([address]) Comment: Performed By: #### GFR, BMP, PBNP, TROP #### [place] [address] #### ANEU, ADIFF, CBC #### [address] [address] Potassium [Moles/Vol] 4.8 3.5-5.1 mmol/L Normal 05-19-20 [facility] ([place] (0000 0) Comment: Performed By: #### GFR, BMP, PBNP, TROP #### [place] [address] #### ANEU, ADIFF, CBC #### [address] [address] Protein [Mass/Vol] 7.2 6.4-8.2 G/dL Normal 05-19-2020 [facility] ([place] ([address]455) Comment: Performed By: #### GFR, BMP, PBNP, TROP #### [place] [address] #### ANEU, ADIFF, CBC #### [address] [address] Sodium [Moles/Vol] 135 136-145 mmol/L Low 05-19-2020 [facility] ([place] ([address]) Comment: Performed By: #### GFR, BMP, PBNP, TROP #### [place] [address] #### ANEU, ADIFF, CBC #### [address] [address] Urea nitrogen [Mass/Vol] 18 7-18 mg/dL Normal 05-19 [facility] ([place]) (0000 0) Comment: Performed By: #### GFR, BMP, PBNP, TROP #### [place] [address] #### ANEU, ADIFF, CBC #### [address] [address] Urea nitrogen/Creatinine [Mass 15 7-27 ratio Normal 05-19-2020 [facility]] [facility] ([place]) ([address]) Comment: Performed By: #### GFR, BMP, PBNP, TROP #### [address] [address] #### ANEU, ADIFF, CBC #### [address] [address] a1c on 2020-05-19 HbA1c (Bld) [Mass fraction] 9.2 4.3-6.4 % High [facility] ([place]) (0000 0) Comment: Performed By: #### GFR, BMP, PBNP, TROP #### [place] [address] #### ANEU, ADIFF, CBC #### [address] [address] .gfr on 2020-05-19 GFR 54 ml/min/1.73sqm Normal [facility] ([place]) (0000 0) Comment: Result Comment: GFR Population mean for Afri can Hungarian, Non- Americans Ages 20-29 = 116 mL/min/1.73 sq.m. Ages 30-39 = 107 mL/min/1.73 sq.m. Ages 40-49 = 99 mL/min/1.73 sq.m. Ages 50-59 = 93 mL/min/1.73 sq.m. Ages 60-69 = 85 mL/min/1.73 sq.m. Ages 70+ = 75 mL/min/1.73 sq .m. Chronic Kidney Disease: Less than 60 mL/min/1.73 square meters End Stage Renal Disease: Les s than 15 mL/min/1.73 square meters Performed By: #### GFR, BMP, PBNP, TROP #### [address] [address] #### ANEU, ADIFF, CBC #### [address] [address] GFR Non- 45 ml/min/1.73sqm Normal 05-19-2020 [facility] ([place]) ([address]661) Comment: Result Comment: GFR Population mean for Afri can Hungarian, Non- Americans Ages 20-29 = 116 mL/min/1.73 sq.m. Ages 30-39 = 107 mL/min/1.73 sq.m. Ages 40-49 = 99 mL/min/1.73 sq.m. Ages 50-59 = 93 mL/min/1.73 sq.m. Ages 60-69 = 85 mL/min/1.73 sq.m. Ages 70+ = 75 mL/min/1.73 sq .m. Chronic Kidney Disease: Less than 60 mL/min/1.73 square meters End Stage Renal Disease: Les s than 15 mL/min/1.73 square meters Performed By: #### GFR, BMP, PBNP, TROP #### [place] [address] #### ANEU, ADIFF, CBC #### [address] [address] bmp on 2020-03-21 Calcium [Mass/Vol] 9.6 8.4-10.2 mg/dL Normal 03-21-2020 [facility] ([place]) (0000 0) Comment: Performed By: #### GFR, BMP, PBNP, TROP #### [place] [address] #### ANEU, ADIFF, CBC #### [address] [address] Chloride [Moles/Vol] 96 98-107 mmol/L Low 0 [facility] ([place] ([address]) Comment: Performed By: #### GFR, BMP, PBNP, TROP #### [place] [address] #### ANEU, ADIFF, CBC #### [address] [address] CO2 [Moles/Vol] 27 23-31 mmol/L Normal 03-21-2020 [facility] ([place]) ([address]) Comment: Performed By: #### GFR, BMP, PBNP, TROP #### [place] [address] #### ANEU, ADIFF, CBC #### [address] [address] Creatinine [Mass/Vol] 1.42 0.55-1.02 mg/dL High 03-21-20 20 [facility] ([place] (0000 0) Comment: Performed By: #### GFR, BMP, PBNP, TROP #### [place] [address] #### ANEU, ADIFF, CBC #### [address] [address] Electrolyte Balance 11.0 mEq/L Normal 03-21-2020 [facility] ([place] ([address]3711) Comment: Performed By: #### GFR, BMP, PBNP, TROP #### [place] [address] #### ANEU, ADIFF, CBC #### [address] [address] Glucose [Mass/Vol] 397 80-115 mg/dL High 03-21-2020 [facility] ([place]) ([address]846) Comment: Performed By: #### GFR, BMP, PBNP, TROP #### [place] [address] #### ANEU, ADIFF, CBC #### [address] [address] Potassium [Moles/Vol] 4.8 3.5-5.1 mmol/L Normal 03-21-20 20 [facility] ([place] (0000 0) Comment: Performed By: #### GFR, BMP, PBNP, TROP #### [place] [address] #### ANEU, ADIFF, CBC #### [address] [address] Sodium [Moles/Vol] 134 136-145 mmol/L Low 03-21-2020 [facility] ([place] ([address]) Comment: Performed By: #### GFR, BMP, PBNP, TROP #### [place] [address] #### ANEU, ADIFF, CBC #### [address] [address] Urea nitrogen [Mass/Vol] 18 7-18 mg/dL Normal 03-21 [facility] ([place] (0000 0) Comment: Performed By: #### GFR, BMP, PBNP, TROP #### [address] [address] #### ANEU, ADIFF, CBC #### [address] [address] Urea nitrogen/Creatinine [Mass 13 7-27 ratio Normal 03-21-2020 [facility]] [facility] ([place]) ([address]) Comment: Performed By: #### GFR, BMP, PBNP, TROP #### [address] [address] #### ANEU, ADIFF, CBC #### [address] [address] .gfr on 2020-03-21 GFR 45 ml/min/1.73sqm Normal 08 [facility] ([place] (0000 0) Comment: Result Comment: GFR Population mean for Afri can Hungarian, Non- Americans Ages 20-29 = 116 mL/min/1.73 sq.m. Ages 30-39 = 107 mL/min/1.73 sq.m. Ages 40-49 = 99 mL/min/1.73 sq.m. Ages 50-59 = 93 mL/min/1.73 sq.m. Ages 60-69 = 85 mL/min/1.73 sq.m. Ages 70+ = 75 mL/min/1.73 sq .m. Chronic Kidney Disease: Less than 60 mL/min/1.73 square meters End Stage Renal Disease: Les s than 15 mL/min/1.73 square meters Performed By: #### GFR, BMP, PBNP, TROP #### [address] [address] #### ANEU, ADIFF, CBC #### [address] [address] GFR Non- 37 ml/min/1.73sqm Normal 03-21-2020 [facility] ([place] (45958) Comment: Result Comment: GFR Population mean for Afri can Hungarian, Non- Americans Ages 20-29 = 116 mL/min/1.73 sq.m. Ages 30-39 = 107 mL/min/1.73 sq.m. Ages 40-49 = 99 mL/min/1.73 sq.m. Ages 50-59 = 93 mL/min/1.73 sq.m. Ages 60-69 = 85 mL/min/1.73 sq.m. Ages 70+ = 75 mL/min/1.73 sq .m. Chronic Kidney Disease: Less than 60 mL/min/1.73 square meters End Stage Renal Disease: Les s than 15 mL/min/1.73 square meters Performed By: #### GFR, BMP, PBNP, TROP #### [facility] [address] [place] [address] #### ANEU, ADIFF, CBC #### [place] [address] [place], [place] [address] nm bone imaging whole body on 2020-03-01 NM BONE IMAGING ORIGINAL Normal 03-01-[address] [facility] WHOLE BODY EXAM: NM BONE IMAGING WHOLE BODY 02/29/2020 1:37 PM [facility] ([place]) ([id number]) HISTORY: LEFT posterior late ral ribs/chest wall pain x11 weeks status post fall COMPARISON: MRI lumbar spine 08/18/2019, x-ray LEFT ankle 30.7 millicuries of techneti um 99m MDP was injected followed by planar imaging of the whole-body. FINDINGS: There is satisfactory distri bution of the radiotracer throughout all of the visualized skeletal structures. No increased focal radiotracer uptake is seen along the ribs. Areas of degenerative activi ty are seen in the spine and appendicular joints. There is increased radiotracer uptake within the bilateral feet and ankles, particularly on the RIGHT side, which may be tra umatic versus degenerative i n origin. There is increased activity in the calvarium, compatible with benign hyperostosis. Physiologic activity is noted in the kidneys and urinary lydia dder. IMPRESSION: No recent rib fracture or in sufficiency fracture is evident. No evidence of metastatic disease. I have personally reviewed t he images of this examination and agree with the resident's findings and interpretation. Interpreted By: Tyrese Lynn DO Preliminary Report By: Belkis Henriquez DO Electronically Signed By: Tyrese Lynn DO Dictated Date: 02/29/2020 1:55:08 PM Prelim Date: 02/29/2020 2:00:50 PM Sign Date: 03/01/2020 1:36:16 PM Ordering Provider:You lund on 2020-02-26 AISLINN . Normal 02-26-2020 [facility] MICRO - Microbiology [facility] ([place]) ([id number]) PROCEDURE: Urine Culture [*1] SOURCE: Urine, Clean Catch BODY SITE: COLLECTED DATE/TIME: 02/24/2020 22:39 EDT RECEIVED DATE/TIME: 02/25/2020 15:49 EDT START DATE/TIME: 02/25/2020 15:49 EDT FREE TEXT SOURCE: FINAL REPORTS Final Report [] Verified Date/Time/Personnel: 02/26/2020 14:46 EDT 10,000 - 50,000 cfu/ml Multiple bacterial morphotypes present. Probable Contamination. Suggest recollection if clinically indicated. Performing Locations *1: This test was performed at: [address], [address]- , [place] Comment: Performed By: #### GFR, BMP, PBNP, TROP #### [address] [address] #### ANEU, ADIFF, CBC #### [address] [address] ua on 2020-02-25 Color (U) Yellow Normal 02-25-2020 [facility] ([facility] ([id number]) Comment: Performed By: #### GFR, BMP, PBNP, TROP #### [address] [address] #### ANEU, ADIFF, CBC #### [address] [address] Glucose (U) [Mass/Vol] 500 Negative mg/dL Abnormal 020 [facility] ([place] ([address]) Comment: Performed By: #### GFR, BMP, PBNP, TROP #### [address] [address] #### ANEU, ADIFF, CBC #### [address] [address] Ketones Ql (U) Negative Negative Normal 02-25-2020 On license of [facility] ([place]) ([address]266) Comment: Performed By: #### GFR, BMP, PBNP, TROP #### [address] [address] #### ANEU, ADIFF, CBC #### [address] [address] UA Appear Clear Clear Normal 02-25-2020 [facility] ([place] ([address]) Comment: Performed By: #### GFR, BMP, PBNP, TROP #### [place] [address] #### ANEU, ADIFF, CBC #### [address] [address] UA Blood Trace Negative Abnormal 02-25-2020 [facility] ([place] ([address]) Comment: Performed By: #### GFR, BMP, PBNP, TROP #### [place] [address] #### ANEU, ADIFF, CBC #### [address] [address] UA Leuk Est Negative Negative Normal 02-25-2020 [facility] ([place]) ([address]) Comment: Performed By: #### GFR, BMP, PBNP, TROP #### [place] [address] #### ANEU, ADIFF, CBC #### [address] [address] UA Nitrite Negative Negative Normal 02-25-2020 [facility] ([place] ([address]798) Comment: Performed By: #### GFR, BMP, PBNP, TROP #### [place] [address] #### ANEU, ADIFF, CBC #### [address] [address] UA pH 7.0 5.0 - 8.0 Normal 02-25-2020 [facility] ([place] ([address]) Comment: Performed By: #### GFR, BMP, PBNP, TROP #### [place] [address] #### ANEU, ADIFF, CBC #### [address] [address] UA Protein Trace Negative Normal 02-25-2020 [facility] ([place]) ([address]) Comment: Performed By: #### GFR, BMP, PBNP, TROP #### [place] [address] #### ANEU, ADIFF, CBC #### [address] [address] UA Spec Grav 1.020 1.015-1.025 Normal 02-25-2020 On license of [facility] ([place]) ([address]61) Comment: Performed By: #### GFR, BMP, PBNP, TROP #### [place] [address] #### ANEU, ADIFF, CBC #### [address] [address] UA Specimen Type Clean Catch Normal 02-25-2020 [facility] ([place] (18064) Comment: Performed By: #### GFR, BMP, PBNP, TROP #### [place] [address] #### ANEU, ADIFF, CBC #### [address] [address] UA Urobilinogen 0.2 0.2-1.0 E.U./dL Normal 02-25-2020 [facility] ([place]) ([address]) Comment: Performed By: #### GFR, BMP, PBNP, TROP #### [place] [address] #### ANEU, ADIFF, CBC #### [address] [address] Urobilinogen Qn (U) Negative Negative Normal 02-25-2020 [facility] ([place]) (0000 0) Comment: Performed By: #### GFR, BMP, PBNP, TROP #### [address] [address] #### ANEU, ADIFF, CBC #### [address] [address] trop on 2020-02-25 Troponin I.cardiac <0.020 0.000-0.040 ng/mL Normal 0 [facility] [Mass/Vol] [facility] ([place]) ([address]86) Comment: Result Comment: Troponin I r eference range: 0.00-0.040 ng/mL Negative an d non-diagnostic. >0.040 ng/mL Consistent with cardiac damage, increased clinical risk and possibility of myocardial in farction. Serial measurements, a rise & fall in test results, clinical histo ry, appropriate symptoms and/or ECG changes may help assess possibility of [place]. *Other non-acute coronary sy ndrome conditions such as CHF, myoc arditis, pulmonary emboli, sepsis and cardiac surgery could result in myoc ardial damage and increased troponi n levels. Performed By: #### GFR, BMP, PBNP, TROP #### [place] [address] #### ANEU, ADIFF, CBC #### [address] [address] phv on 2020-02-25 pH Venous 7.39 7.31-7.41 Normal 02-25-2020 [facility] ([place] ([address]56) Comment: Performed By: #### GFR, BMP, PBNP, TROP #### [place] [address] #### ANEU, ADIFF, CBC #### [address] [address] lip on 2020-02-25 Lipase Level 76 73-393 U/L Normal 02-25-2020 [facility] ([place]) ([address]268) Comment: Performed By: #### GFR, BMP, PBNP, TROP #### [place] [address] #### ANEU, ADIFF, CBC #### [address] [address] cmp on 2020-02-25 Albumin [Mass/Vol] 3.6 3.4-4.8 G/dL Normal 02-25-2020 [facility] ([place]) ([address]79) Comment: Performed By: #### GFR, BMP, PBNP, TROP #### [place] [address] #### ANEU, ADIFF, CBC #### [address] [address] Albumin/Globulin [Mass ratio] 1.0 1.1-2.5 ratio Low 02-25-2020 [facility] ([place]) ([id number]) Comment: Performed By: #### GFR, BMP, PBNP, TROP #### [place] [address] #### ANEU, ADIFF, CBC #### [address] [address] ALP [Catalytic activity/Vol] 192 40-135 U/L High 0 02-25-2020 [facility] ([place]) (0000 0) Comment: Performed By: #### GFR, BMP, PBNP, TROP #### [place] [address] #### ANEU, ADIFF, CBC #### [address] [address] ALT [Catalytic activity/Vol] 21 10-35 U/L Normal 0 02-25-2020 [facility] ([place] (0000 0) Comment: Performed By: #### GFR, BMP, PBNP, TROP #### [place] [address] #### ANEU, ADIFF, CBC #### [address] [address] AST [Catalytic activity/Vol] 14 10-40 U/L Normal 0 02-25-2020 [facility] ([place]) (0000 0) Comment: Performed By: #### GFR, BMP, PBNP, TROP #### [place] [address] #### ANEU, ADIFF, CBC #### [address] [address] Bili Total 1.0 0.2-1.0 mg/dL Normal 02-25-2020 [facility] ([place]) ([address]86) Comment: Result Comment: Use of this assay is not recommended for patients undergoing treatment with eltrombopag d ue to the potential for falsely elevated results. Performed By: #### GFR, BMP, PBNP, TROP #### [place] [address] #### ANEU, ADIFF, CBC #### [address] [address] Calcium [Mass/Vol] 9.6 8.4-10.2 mg/dL Normal 02-25-2020 [facility] ([place]) (0000 0) Comment: Performed By: #### GFR, BMP, PBNP, TROP #### [place] [address] #### ANEU, ADIFF, CBC #### [address] [address] Chloride [Moles/Vol] 97 98-107 mmol/L Low 0 [facility] ([place]) ([address]01) Comment: Performed By: #### GFR, BMP, PBNP, TROP #### [place] [address] #### ANEU, ADIFF, CBC #### [address] [address] CO2 [Moles/Vol] 34 23-31 mmol/L High 02-25-2020 [facility] [place] ([place]) ([id number]) Comment: Performed By: #### GFR, BMP, PBNP, TROP #### [place] [address] #### ANEU, ADIFF, CBC #### [address] [address] Creatinine [Mass/Vol] 1.31 0.55-1.02 mg/dL High 02-25-20 20 [facility] ([place]) (0000 0) Comment: Performed By: #### GFR, BMP, PBNP, TROP #### [place] [address] #### ANEU, ADIFF, CBC #### [address] [address] Electrolyte Balance 4.0 mEq/L Normal 02-25-2020 [facility] ([place]) ([address]34) Comment: Performed By: #### GFR, BMP, PBNP, TROP #### [place] [address] #### ANEU, ADIFF, CBC #### [address] [address] Globulin (S) [Mass/Vol] 3.6 G/dL Normal 2019 [facility] ([place]) ([address]26) Comment: Performed By: #### GFR, BMP, PBNP, TROP #### [place] [address] #### ANEU, ADIFF, CBC #### [address] [address] Glucose [Mass/Vol] 428 80-115 mg/dL Critically abnormal 0 02-25-2020 [facility] ([place]) ([address]24) Comment: Performed By: #### GFR, BMP, PBNP, TROP #### [place] [address] #### ANEU, ADIFF, CBC #### [address] [address] Potassium [Moles/Vol] 4.8 3.5-5.1 mmol/L Normal 02-25-20 [facility] ([place]) (0000 0) Comment: Performed By: #### GFR, BMP, PBNP, TROP #### [place] [address] #### ANEU, ADIFF, CBC #### [address] [address] Protein [Mass/Vol] 7.2 6.4-8.2 G/dL Normal 02-25-2020 [facility] ([place]) ([address]50) Comment: Performed By: #### GFR, BMP, PBNP, TROP #### [place] [address] #### ANEU, ADIFF, CBC #### [address] [address] Sodium [Moles/Vol] 135 136-145 mmol/L Low 02-25-2020 [facility] ([place]) ([address]248) Comment: Performed By: #### GFR, BMP, PBNP, TROP #### [place] [address] #### ANEU, ADIFF, CBC #### [address] [address] Urea nitrogen [Mass/Vol] 17 7-18 mg/dL Normal 02-24 [facility] ([place]) (0000 0) Comment: Performed By: #### GFR, BMP, PBNP, TROP #### [place] [address] #### ANEU, ADIFF, CBC #### [address] [address] Urea nitrogen/Creatinine [Mass 13 7-27 ratio Normal 02-25-2020 [facility] ratio] [facility] ([place]) ([address]574) Comment: Performed By: #### GFR, BMP, PBNP, TROP #### [place] [address] #### ANEU, ADIFF, CBC #### [address] [address] cbc on 2020-02-25 Erythrocyte distribution 14.8 11.5-14.5 % High 02-24 [facility] width (RBC) [Ratio] ([place]) (41652) Comment: Performed By: #### GFR, BMP, PBNP, TROP #### [place] [address] #### ANEU, ADIFF, CBC #### [address] [address] Hematocrit (Bld) [Volume 40.2 37.0-47.0 % Normal 02-24 [facility] fraction] ([place]) (0000 0) Comment: Performed By: #### GFR, BMP, PBNP, TROP #### [place] [address] #### ANEU, ADIFF, CBC #### [address] [address] Hemoglobin (Bld) 13.2 12.0-16.0 G/dL Normal 02-25-2020 [facility] [Mass/Vol] [facility] [facility] ([place] ([address]75) Comment: Performed By: #### GFR, BMP, PBNP, TROP #### [place] [address] #### ANEU, ADIFF, CBC #### [address] [address] MCH (RBC) [Entitic mass] 27.7 27.0-31.2 pg Normal 02-24 [facility] ([place]) (0000 0) Comment: Performed By: #### GFR, BMP, PBNP, TROP #### [place] [address] #### ANEU, ADIFF, CBC #### [address] [address] MCHC (RBC) [Mass/Vol] 32.8 33.0-37.0 G/dL Low 02-25-20 [facility] ([place]) (0000 0) Comment: Performed By: #### GFR, BMP, PBNP, TROP #### [place] [address] #### ANEU, ADIFF, CBC #### [address] [address] MCV (RBC) [Entitic vol] 84.5 80.0-94.0 fL Normal 2019 [facility] ([place]) (0000 0) Comment: Performed By: #### GFR, BMP, PBNP, TROP #### [place] [address] #### ANEU, ADIFF, CBC #### [address] [address] Platelet mean volume 8.1 7.4-10.4 fL Normal 0 [facility] (Bld) [Entitic vol] ([place]) ([address]67) Comment: Performed By: #### GFR, BMP, PBNP, TROP #### [place] [address] #### ANEU, ADIFF, CBC #### [address] [address] Platelets (Bld) [#/Vol] 265 130-400 10 3/mcL Normal 2019 [facility] ([place]) (40698) Comment: Performed By: #### GFR, BMP, PBNP, TROP #### [place] [address] #### ANEU, ADIFF, CBC #### [address] [address] RBC (Bld) [#/Vol] 4.76 4.20-5.40 10 6/mcL Normal 02-25-2020 [facility] ([place]) (0000 0) Comment: Performed By: #### GFR, BMP, PBNP, TROP #### [place] [address] #### ANEU, ADIFF, CBC #### [address] [address] WBC (Bld) [#/Vol] 11.20 4.60-10.80 10 3/mcL High 02-25-2020 [facility] ([place]) (0000 0) Comment: Performed By: #### GFR, BMP, PBNP, TROP #### [place] [address] #### ANEU, ADIFF, CBC #### [address] [address] isis on 2020-02-25 Acetone (s) Negative Negative Normal 02-25-2020 [facility] ([place]) (62364) Comment: Performed By: #### GFR, BMP, PBNP, TROP #### [place] [address] #### ANEU, ADIFF, CBC #### [address] [address] .neuabs on Neutrophils (Bld) 8.50 2.85-6.16 10 3/mcL High 02-25-2020 [facility] [#/Vol] [facility] ([place]) ([address]80) Comment: Performed By: #### GFR, BMP, PBNP, TROP #### [address] [address] #### ANEU, ADIFF, CBC #### [address] [address] .gfr on 2020-02-25 GFR 49 ml/min/1.73sqm Normal [facility] ([place]) (0000 0) Comment: Result Comment: GFR Population mean for Afri can Hungarian, Non- Americans Ages 20-29 = 116 mL/min/1.73 sq.m. Ages 30-39 = 107 mL/min/1.73 sq.m. Ages 40-49 = 99 mL/min/1.73 sq.m. Ages 50-59 = 93 mL/min/1.73 sq.m. Ages 60-69 = 85 mL/min/1.73 sq.m. Ages 70+ = 75 mL/min/1.73 sq .m. Chronic Kidney Disease: Less than 60 mL/min/1.73 square meters End Stage Renal Disease: Les s than 15 mL/min/1.73 square meters Performed By: #### GFR, BMP, PBNP, TROP #### [address] [address] #### ANEU, ADIFF, CBC #### [address] [address] GFR Non- 41 ml/min/1.73sqm Normal 02-25-2020 [facility] ([place]) (65526) Comment: Result Comment: GFR Population mean for Afri can Hungarian, Non- Americans Ages 20-29 = 116 mL/min/1.73 sq.m. Ages 30-39 = 107 mL/min/1.73 sq.m. Ages 40-49 = 99 mL/min/1.73 sq.m. Ages 50-59 = 93 mL/min/1.73 sq.m. Ages 60-69 = 85 mL/min/1.73 sq.m. Ages 70+ = 75 mL/min/1.73 sq .m. Chronic Kidney Disease: Less than 60 mL/min/1.73 square meters End Stage Renal Disease: Les s than 15 mL/min/1.73 square meters Performed By: #### GFR, BMP, PBNP, TROP #### [place] [address] #### ANEU, ADIFF, CBC #### [address] [address] .auto diff on 02-24 Ammonia (P) [Mass/Vol] 0.80 0.15-1.00 10 3/mcL Normal 020 [facility] ([place]) (58743) Comment: Performed By: #### GFR, BMP, PBNP, TROP #### [place] [address] #### ANEU, ADIFF, CBC #### [address] [address] Basophils (Bld) 0.10 0.00-0.19 10 3/mcL Normal 02-25-[address] [facility] [#/Vol] [facility] ([place]) ([address]894) Comment: Performed By: #### GFR, BMP, PBNP, TROP #### [place] [address] #### ANEU, ADIFF, CBC #### [address] [address] Basophils/100 WBC (Bld) 0.6 0.0-2.5 % Normal 2019 [facility] ([place]) (0000 0) Comment: Performed By: #### GFR, BMP, PBNP, TROP #### [place] [address] #### ANEU, ADIFF, CBC #### [address] [address] Eosinophils (Bld) 0.30 0.00-0.40 10 3/mcL Normal 02-25-2020 [facility] [#/Vol] [facility] ([place]) (27659) Comment: Performed By: #### GFR, BMP, PBNP, TROP #### [place] [address] #### ANEU, ADIFF, CBC #### [address] [address] Eosinophils/100 WBC (Bld) 2.4 0.0-7.0 % Normal 070 [facility] ([place]) (0000 0) Comment: Performed By: #### GFR, BMP, PBNP, TROP #### [place] [address] #### ANEU, ADIFF, CBC #### [address] [address] Lymphocytes (Bld) 1.60 0.77-3.85 10 3/mcL Normal 02-25-2020 [facility] [#/Vol] [facility] ([place]) (51785) Comment: Performed By: #### GFR, BMP, PBNP, TROP #### [place] [address] #### ANEU, ADIFF, CBC #### [address] [address] Lymphocytes/100 WBC (Bld) 14.6 10.0-50.0 % Normal [facility] ([place]) (80386) Comment: Performed By: #### GFR, BMP, PBNP, TROP #### [place] [address] #### ANEU, ADIFF, CBC #### [address] [address] Monocytes/100 WBC (Bld) 6.8 1.7-13.0 % Normal 2019 [facility] ([place]) (0000 0) Comment: Performed By: #### GFR, BMP, PBNP, TROP #### [place] [address] #### ANEU, ADIFF, CBC #### [address] [address] Neutrophils/100 WBC (Bld) 75.6 37.0-80.0 % Normal [facility] ([place]) (85783) Comment: Performed By: #### GFR, BMP, PBNP, TROP #### [place] [address] #### ANEU, ADIFF, CBC #### [address] [address] vidh on 2020-02-24 Vit. D 25-Hydroxy 24 ng/mL Normal 02-24-2020 [facility] ([place]) (59675) Comment: Result Comment: Interpretive Values Based on Total 25(OH)D: Severe Deficiency <20 ng/mL Mild to Moderate Deficiency 20-30 ng/mL Optimum Levels 30-100 ng/mL Toxicity Possible >100 ng/mL Performed By: #### GFR, BMP, PBNP, TROP #### [place] [address] #### ANEU, ADIFF, CBC #### [address] [address] uric on 2020-02-24 Uric Acid Lvl 4.7 2.6-6.2 mg/dL Normal 02-24-2020 [facility] ([place]) (82357) Comment: Performed By: #### GFR, BMP, PBNP, TROP #### [place] [address] #### ANEU, ADIFF, CBC #### [address] [address] tsh on 2020-02-24 TSH Qn 2.13 0.36-3.74 mcIU/mL Normal 02-24-2020 [facility] ([place]) ([address]322) Comment: Performed By: #### GFR, BMP, PBNP, TROP #### [place] [address] #### ANEU, ADIFF, CBC #### [address] [address] lipid on 2020-02-24 Cholesterol [Mass/Vol] 134 0-200 mg/dL Normal 020 [facility] ([place]) (0000 0) Comment: Result Comment: Cholesterol Reference Interval: Less than 200 Desirable 200-239 Borderline high risk 240 and above High risk Performed By: #### GFR, BMP, PBNP, TROP #### [place] [address] #### ANEU, ADIFF, CBC #### [address] [address] Cholesterol in HDL 45 40-60 mg/dL Normal 02-24-2020 [facility] [Mass/Vol] ([place]) (000 00) Comment: Performed By: #### GFR, BMP, PBNP, TROP #### [place] [address] #### ANEU, ADIFF, CBC #### [address] [address] Cholesterol in LDL 55 0-130 mg/dL Normal 02-24-2020 [facility] [Mass/Vol] ([place]) (000 00) Comment: Performed By: #### GFR, BMP, PBNP, TROP #### [place] [address] #### ANEU, ADIFF, CBC #### [address] [address] Triglyceride [Mass/Vol] 171 0-150 mg/dL High 2019 [facility] ([place]) (0000 0) Comment: Result Comment: Triglyceride Reference Interval: Less than 150 Normal 150-199 Borderline high risk 200-499 High risk 500 or higher Very high risk Performed By: #### GFR, BMP, PBNP, TROP #### [place] [address] #### ANEU, ADIFF, CBC #### [address] [address] ft4 on 2020-02-24 Free T4 [Mass/Vol] 1.37 0.76-1.46 ng/dL Normal 02-24-2020 [facility] ([place]) (0000 0) Comment: Performed By: #### GFR, BMP, PBNP, TROP #### [place] [address] #### ANEU, ADIFF, CBC #### [address] [address] cmp on 2020-02-24 Albumin [Mass/Vol] 3.5 3.4-4.8 G/dL Normal 02-24-2020 [facility] ([place]) (64284) Comment: Performed By: #### GFR, BMP, PBNP, TROP #### [place] [address] #### ANEU, ADIFF, CBC #### [address] [address] Albumin/Globulin [Mass ratio] 1.0 1.1-2.5 ratio Low 02-24-2020 [facility] ([place]) (77462) Comment: Performed By: #### GFR, BMP, PBNP, TROP #### [place] [address] #### ANEU, ADIFF, CBC #### [address] [address] ALP [Catalytic activity/Vol] 193 40-135 U/L High 0 02-24-2020 [facility] ([place]) (0000 0) Comment: Performed By: #### GFR, BMP, PBNP, TROP #### [place] [address] #### ANEU, ADIFF, CBC #### [address] [address] ALT [Catalytic activity/Vol] 22 10-35 U/L Normal 0 02-24-2020 [facility] ([place]) (0000 0) Comment: Performed By: #### GFR, BMP, PBNP, TROP #### [place] [address] #### ANEU, ADIFF, CBC #### [address] [address] AST [Catalytic activity/Vol] 16 10-40 U/L Normal 0 02-24-2020 [facility] ([place]) (0000 0) Comment: Performed By: #### GFR, BMP, PBNP, TROP #### [place] [address] #### ANEU, ADIFF, CBC #### [address] [address] Bili Total 0.7 0.2-1.0 mg/dL Normal 02-24-2020 [facility] ([place]) (82532) Comment: Result Comment: Use of this assay is not recommended for patients undergoing treatment with eltrombopag d ue to the potential for falsely elevated results. Performed By: #### GFR, BMP, PBNP, TROP #### [place] [address] #### ANEU, ADIFF, CBC #### [address] [address] Calcium [Mass/Vol] 9.3 8.4-10.2 mg/dL Normal 02-24-2020 [facility] ([place]) (0000 0) Comment: Performed By: #### GFR, BMP, PBNP, TROP #### [place] [address] #### ANEU, ADIFF, CBC #### [address] [address] Chloride [Moles/Vol] 95 98-107 mmol/L Low 0 [facility] ([place]) (02980) Comment: Performed By: #### GFR, BMP, PBNP, TROP #### [place] [address] #### ANEU, ADIFF, CBC #### [address] [address] CO2 [Moles/Vol] 30 23-31 mmol/L Normal 02-24-2020 [facility] ([place]) ([address]163) Comment: Performed By: #### GFR, BMP, PBNP, TROP #### [place] [address] #### ANEU, ADIFF, CBC #### [address] [address] Creatinine [Mass/Vol] 1.28 0.55-1.02 mg/dL High 02-24-20 [facility] ([place]) (0000 0) Comment: Performed By: #### GFR, BMP, PBNP, TROP #### [place] [address] #### ANEU, ADIFF, CBC #### [address] [address] Electrolyte Balance 8.0 mEq/L Normal 02-24-2020 [facility] ([place]) (60779) Comment: Performed By: #### GFR, BMP, PBNP, TROP #### [place] [address] #### ANEU, ADIFF, CBC #### [address] [address] Globulin (S) [Mass/Vol] 3.4 G/dL Normal 2019 [facility] ([place]) (47933) Comment: Performed By: #### GFR, BMP, PBNP, TROP #### [place] [address] #### ANEU, ADIFF, CBC #### [address] [address] Glucose [Mass/Vol] 458 80-115 mg/dL Critically abnormal 0 02-24-2020 [facility] ([place]) (75871) Comment: Performed By: #### GFR, BMP, PBNP, TROP #### [place] [address] #### ANEU, ADIFF, CBC #### [address] [address] Potassium [Moles/Vol] 4.6 3.5-5.1 mmol/L Normal 02-24-20 [facility] ([place]) (0000 0) Comment: Performed By: #### GFR, BMP, PBNP, TROP #### [place] [address] #### ANEU, ADIFF, CBC #### [address] [address] Protein [Mass/Vol] 6.9 6.4-8.2 G/dL Normal 02-24-2020 [facility] ([place]) (60840) Comment: Performed By: #### GFR, BMP, PBNP, TROP #### [place] [address] #### ANEU, ADIFF, CBC #### [address] [address] Sodium [Moles/Vol] 133 136-145 mmol/L Low 02-24-2020 [facility] ([place]) (16273) Comment: Performed By: #### GFR, BMP, PBNP, TROP #### [place] [address] #### ANEU, ADIFF, CBC #### [address] [address] Urea nitrogen [Mass/Vol] 17 7-18 mg/dL Normal 02-23 [facility] ([place]) (0000 0) Comment: Performed By: #### GFR, BMP, PBNP, TROP #### [place] [address] #### ANEU, ADIFF, CBC #### [address] [address] Urea nitrogen/Creatinine [Mass 13 7-27 ratio Normal 02-24-2020 [facility]] [facility] ([place]) (38688) Comment: Performed By: #### GFR, BMP, PBNP, TROP #### [place] [address] #### ANEU, ADIFF, CBC #### [address] [address] a1c on 2020-02-24 HbA1c (Bld) [Mass fraction] 9.2 4.3-6.4 % High [facility] ([place]) (0000 0) Comment: Performed By: #### GFR, BMP, PBNP, TROP #### [place] [address] #### FRED DIAZ, CBC #### [place] [address] [place], [place] [address] .gfr on 2020-02-24 GFR Non- 42 ml/min/1.73sqm Normal 02-24-2020 [facility] ([place]) (49621) Comment: Result Comment: GFR Population mean for Afri can Hungarian, Non- Americans Ages 20-29 = 116 mL/min/1.73 sq.m. Ages 30-39 = 107 mL/min/1.73 sq.m. Ages 40-49 = 99 mL/min/1.73 sq.m. Ages 50-59 = 93 mL/min/1.73 sq.m. Ages 60-69 = 85 mL/min/1.73 sq.m. Ages 70+ = 75 mL/min/1.73 sq .m. Chronic Kidney Disease: Less than 60 mL/min/1.73 square meters End Stage Renal Disease: Les s than 15 mL/min/1.73 square meters Performed By: #### GFR, BMP, PBNP, TROP #### [place] [address] #### FRED DIAZ, CBC #### [address] [address] GFR 51 ml/min/1.73sqm Normal [facility] ([place]) (0000 0) Comment: Result Comment: GFR Population mean for Afri can Hungarian, Non- Americans Ages 20-29 = 116 mL/min/1.73 sq.m. Ages 30-39 = 107 mL/min/1.73 sq.m. Ages 40-49 = 99 mL/min/1.73 sq.m. Ages 50-59 = 93 mL/min/1.73 sq.m. Ages 60-69 = 85 mL/min/1.73 sq.m. Ages 70+ = 75 mL/min/1.73 sq .m. Chronic Kidney Disease: Less than 60 mL/min/1.73 square meters End Stage Renal Disease: Les s than 15 mL/min/1.73 square meters Performed By: #### GFR, BMP, PBNP, TROP #### [place] [address] #### ANEU, ADIFF, CBC #### [address] [address] vidh on 2019-11-16 Vit. D 25-Hydroxy 21 ng/mL Normal 11-16-2019 [facility] ([place]) (79215) Comment: Result Comment: Interpretive Values Based on Total 25(OH)D: Severe Deficiency <20 ng/mL Mild to Moderate Deficiency 20-30 ng/mL Optimum Levels 30-100 ng/mL Toxicity Possible >100 ng/mL Performed By: #### GFR, BMP, PBNP, TROP #### [place] [address] #### ANEU, ADIFF, CBC #### [address] [address] tsh on 2019-11-16 TSH Qn 2.00 0.36-3.74 mcIU/mL Normal 11-16-2019 [facility] ([place]) (78496) Comment: Performed By: #### GFR, BMP, PBNP, TROP #### [place] [address] #### ANEU, ADIFF, CBC #### [address] [address] lipid on 2019-11-16 Cholesterol [Mass/Vol] 157 0-200 mg/dL Normal 020 [facility] ([place]) (0000 0) Comment: Result Comment: Cholesterol Reference Interval: Less than 200 Desirable 200-239 Borderline high risk 240 and above High risk Performed By: #### GFR, BMP, PBNP, TROP #### [place] [address] #### ANEU, ADIFF, CBC #### [address] [address] Cholesterol in HDL 70 40-60 mg/dL High 11-16-2019 [facility] [Mass/Vol] ([place]) (000 00) Comment: Performed By: #### GFR, BMP, PBNP, TROP #### [place] [address] #### ANEU, ADIFF, CBC #### [address] [address] Cholesterol in LDL 67 0-130 mg/dL Normal 11-16-2019 [facility] [Mass/Vol] ([place]) (000 00) Comment: Performed By: #### GFR, BMP, PBNP, TROP #### [place] [address] #### ANEU, ADIFF, CBC #### [address] [address] Triglyceride [Mass/Vol] 100 0-150 mg/dL Normal 2019 [facility] ([place]) (0000 0) Comment: Result Comment: Triglyceride Reference Interval: Less than 150 Normal 150-199 Borderline high risk 200-499 High risk 500 or higher Very high risk Performed By: #### GFR, BMP, PBNP, TROP #### [place] [address] #### ANEU, ADIFF, CBC #### [address] [address] cmp on 2019-11-16 Albumin [Mass/Vol] 3.4 3.4-4.8 G/dL Normal 11-16-2019 [facility] ([place]) (53951) Comment: Performed By: #### GFR, BMP, PBNP, TROP #### [place] [address] #### ANEU, ADIFF, CBC #### [address] [address] Albumin/Globulin [Mass ratio] 1.0 1.1-2.5 ratio Low 11-16-2019 [facility] ([place]) (49693) Comment: Performed By: #### GFR, BMP, PBNP, TROP #### [place] [address] #### ANEU, ADIFF, CBC #### [address] [address] ALP [Catalytic activity/Vol] 197 40-135 U/L High 0 11-16-2019 [facility] ([place]) (0000 0) Comment: Performed By: #### GFR, BMP, PBNP, TROP #### [place] [address] #### ANEU, ADIFF, CBC #### [address] [address] ALT [Catalytic activity/Vol] 39 10-35 U/L High 0 11-16-2019 [facility] ([place]) (0000 0) Comment: Performed By: #### GFR, BMP, PBNP, TROP #### [place] [address] #### ANEU, ADIFF, CBC #### [address] [address] AST [Catalytic activity/Vol] 21 10-40 U/L Normal 0 11-16-2019 [facility] ([place]) (0000 0) Comment: Performed By: #### GFR, BMP, PBNP, TROP #### [place] [address] #### ANEU, ADIFF, CBC #### [address] [address] Bili Total 0.9 0.2-1.0 mg/dL Normal 11-16-2019 [facility] ([place]) ([address]11) Comment: Result Comment: Use of this assay is not recommended for patients undergoing treatment with eltrombopag d ue to the potential for falsely elevated results. Performed By: #### GFR, BMP, PBNP, TROP #### [place] [address] #### ANEU, ADIFF, CBC #### [address] [address] Calcium [Mass/Vol] 9.1 8.4-10.2 mg/dL Normal 11-16-2019 [facility] ([place]) (0000 0) Comment: Performed By: #### GFR, BMP, PBNP, TROP #### [place] [address] #### ANEU, ADIFF, CBC #### [address] [address] Chloride [Moles/Vol] 99 98-107 mmol/L Normal 0 [facility] ([place]) (0000 0) Comment: Performed By: #### GFR, BMP, PBNP, TROP #### [address] [address] #### ANEU, ADIFF, CBC #### [address] [address] CO2 [Moles/Vol] 30 23-31 mmol/L Normal 11-16-2019 [facility] ([place]) ([address]49) Comment: Performed By: #### GFR, BMP, PBNP, TROP #### [place] [address] #### ANEU, ADIFF, CBC #### [address] [address] Creatinine [Mass/Vol] 1.22 0.55-1.02 mg/dL High 11-16-19 20 [facility] ([place]) (0000 0) Comment: Performed By: #### GFR, BMP, PBNP, TROP #### [place] [address] #### ANEU, ADIFF, CBC #### [address] [address] Electrolyte Balance 7.0 mEq/L Normal 11-16-2019 [facility] ([place]) (15581) Comment: Performed By: #### GFR, BMP, PBNP, TROP #### [place] [address] #### ANEU, ADIFF, CBC #### [address] [address] Globulin (S) [Mass/Vol] 3.3 G/dL Normal 2019 [facility] ([place]) (42159) Comment: Performed By: #### GFR, BMP, PBNP, TROP #### [place] [address] #### ANEU, ADIFF, CBC #### [address] [address] Glucose [Mass/Vol] 329 80-115 mg/dL High 11-16-2019 [facility] ([place]) (39608) Comment: Performed By: #### GFR, BMP, PBNP, TROP #### [place] [address] #### ANEU, ADIFF, CBC #### [address] [address] Potassium [Moles/Vol] 4.8 3.5-5.1 mmol/L Normal 11-16-19 [facility] ([place]) (0000 0) Comment: Performed By: #### GFR, BMP, PBNP, TROP #### [place] [address] #### ANEU, ADIFF, CBC #### [address] [address] Protein [Mass/Vol] 6.7 6.4-8.2 G/dL Normal 11-16-2019 [facility] ([place]) (30882) Comment: Performed By: #### GFR, BMP, PBNP, TROP #### [place] [address] #### ANEU, ADIFF, CBC #### [address] [address] Sodium [Moles/Vol] 136 136-145 mmol/L Normal 11-16-2019 [facility] ([place]) (0000 0) Comment: Performed By: #### GFR, BMP, PBNP, TROP #### [place] [address] #### ANEU, ADIFF, CBC #### [address] [address] Urea nitrogen [Mass/Vol] 14 7-18 mg/dL Normal 11-15 [facility] ([place]) (0000 0) Comment: Performed By: #### GFR, BMP, PBNP, TROP #### [place] [address] #### ANEU, ADIFF, CBC #### [address] [address] Urea nitrogen/Creatinine [Mass 11 7-27 ratio Normal 11-16-2019 [facility]] [facility] ([place]) ([address]79) Comment: Performed By: #### GFR, BMP, PBNP, TROP #### [address] [address] #### ANEU, ADIFF, CBC #### [address] [address] a1c on 2019-11-16 HbA1c (Bld) [Mass fraction] 8.5 4.3-6.4 % High [facility] ([place]) (0000 0) Comment: Performed By: #### GFR, BMP, PBNP, TROP #### [address] [address] #### ANEU, ADIFF, CBC #### [address] [address] .gfr on 2019-11-16 GFR Non- 44 ml/min/1.73sqm Normal 11-16-2019 [facility] ([place]) (08964) Comment: Result Comment: GFR Population mean for Afri can Hungarian, Non- Americans Ages 20-29 = 116 mL/min/1.73 sq.m. Ages 30-39 = 107 mL/min/1.73 sq.m. Ages 40-49 = 99 mL/min/1.73 sq.m. Ages 50-59 = 93 mL/min/1.73 sq.m. Ages 60-69 = 85 mL/min/1.73 sq.m. Ages 70+ = 75 mL/min/1.73 sq .m. Chronic Kidney Disease: Less than 60 mL/min/1.73 square meters End Stage Renal Disease: Les s than 15 mL/min/1.73 square meters Performed By: #### GFR, BMP, PBNP, TROP #### [address] [address] #### ANEU, ADIFF, CBC #### [address] [address] GFR 54 ml/min/1.73sqm Normal 03- [facility] ([place]) ([phone]) Comment: Result Comment: GFR Population mean for Afri can Hungarian, Non- Americans Ages 20-29 = 116 mL/min/1.73 sq.m. Ages 30-39 = 107 mL/min/1.73 sq.m. Ages 40-49 = 99 mL/min/1.73 sq.m. Ages 50-59 = 93 mL/min/1.73 sq.m. Ages 60-69 = 85 mL/min/1.73 sq.m. Ages 70+ = 75 mL/min/1.73 sq .m. Chronic Kidney Disease: Less than 60 mL/min/1.73 square meters End Stage Renal Disease: Les s than 15 mL/min/1.73 square meters Performed By: #### GFR, BMP, PBNP, TROP #### [place] [id number] #### ANEU, ADIFF, CBC #### [address] [id number] mri spine lumbar w/o contrast on 2019-08-18 MRI SPINE LUMBAR ORIGINAL Normal 08-18-2019 [facility] W/O CONTRAST MRI SPINE LUMBAR W/O CONTRAST [facility] ([place]) ([id number]) ORDERING PROVIDER: JENNY VIDES CLINICAL STATEMENT: lumbosacral root disease. TECHNIQUE: Sagittal T2, T1 and STIR; axial T1 and T2 weighte d images. COMPARISON: None. Vertebral Nomenclature: For purposes of this dictation, it is assumed that there are 5 [id number], lumbar-type vertebrae, and the most caudal fully segmented lumbar vertebra is labeled L5. FINDINGS: The lumbar spine demonstrate s unchanged grade 1 anterolisthesis of L4 on L5. Vertebral bodies are normal in height. There is a predominantly normal marrow signal pattern. 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 The conus medullaris termina maria del carmen at a normal level and the nerve roots of the cauda equina appear normal. The included paraspinal soft tissues and retroperitoneal structures are grossly normal. L1-2: No stenosis. L2-3: No stenosis. L3-4: Symmetric bulge and facet arthropathy without stenosis . L4-5: Disc uncovering, facet arthropathy and ligamentum flavum thickening cause mild central spinal stenosis and narrow both lateral recesses. Mild RIGHT foraminal stenosis. Bilateral small facet joint effusions are present. L5-S1: No stenosis. Moderate facet arthr opathy with associated facet effusion. The sacrum is normal. There are no abnormal fluid collections in the spinal canal or perispinal soft tissues. IMPRESSION: There is lateral recess narrowing on both sides at L4-L5. No other convincing potential etiology for lumbosacral root disease is identified. I have personally reviewed t he images of this examination and agree with the resident's findings and interpretation. Interpreted By: Mukul Bay Preliminary Report By: Harvey Perez DO Electronically Signed By: Mukul Bay Dictated Date: 08/18/2019 2:32:52 PM Prelim Date: 08/18/2019 2:42:46 PM Sign Date: 08/18/2019 4:00:36 PM Ordering Provider:Jenny Vides cbc on 2019-08-17 Erythrocyte distribution 14.6 11.5-14.5 % High 08-17 [facility] width (RBC) [Ratio] ([place]) ([id number]) Comment: Performed By: #### GFR, BMP, PBNP, TROP #### [address] [address] #### ANEU, ADIFF, CBC #### [address] [address] Hematocrit (Bld) [Volume 37.4 37.0-47.0 % Normal 08-17 [facility] fraction] ([place]) (0000 0) Comment: Performed By: #### GFR, BMP, PBNP, TROP #### [address] [address] #### ANEU, ADIFF, CBC #### [address] [address] Hemoglobin (Bld) 12.4 12.0-16.0 G/dL Normal 08-17-2019 [facility] [Mass/Vol] [facility] ([place]) ([id number]) Comment: Performed By: #### GFR, BMP, PBNP, TROP #### [address] [address] #### ANEU, ADIFF, CBC #### [address] [address] MCH (RBC) [Entitic mass] 27.8 27.0-31.2 pg Normal 08-17 [facility] ([place]) (0000 0) Comment: Performed By: #### GFR, BMP, PBNP, TROP #### [place] [address] #### ANEU, ADIFF, CBC #### [address] [address] MCHC (RBC) [Mass/Vol] 33.1 33.0-37.0 G/dL Normal 08-17-20 19 [facility] ([place]) (0000 0) Comment: Performed By: #### GFR, BMP, PBNP, TROP #### [place] [address] #### ANEU, ADIFF, CBC #### [address] [address] MCV (RBC) [Entitic vol] 83.8 80.0-94.0 fL Normal 2018 [facility] ([place]) (0000 0) Comment: Performed By: #### GFR, BMP, PBNP, TROP #### [place] [address] #### ANEU, ADIFF, CBC #### [address] [address] Platelet mean volume 7.7 7.4-10.4 fL Normal 9 [facility] (d) [Entitic vol] ([place]) ([id number]) Comment: Performed By: #### GFR, BMP, PBNP, TROP #### [place] [address] #### ANEU, ADIFF, CBC #### [address] [address] Platelets (Bld) [#/Vol] 277 130-400 10 3/mcL Normal 2018 [facility] ([place]) ([id number]) Comment: Performed By: #### GFR, BMP, PBNP, TROP #### [facility] [address] [place], [place] [address] #### ANEU, ADIFF, CBC #### [address] [address] RBC (Bld) [#/Vol] 4.47 4.20-5.40 10 6/mcL Normal 08-17-2019 [facility] ([place]) (0000 0) Comment: Performed By: #### GFR, BMP, PBNP, TROP #### [place] [address] #### ANEU, ADIFF, CBC #### [address] [address] WBC (Bld) [#/Vol] 10.70 4.60-10.80 10 3/mcL Normal 08-17-2019 [facility] ([place]) ([id number]) Comment: Performed By: #### GFR, BMP, PBNP, TROP #### [place] [address] #### ANEU, ADIFF, CBC #### [address] [address] bmp on 2019-08-17 Calcium [Mass/Vol] 9.1 8.4-10.2 mg/dL Normal 08-17-2019 [facility] ([place]) (0000 0) Comment: Performed By: #### GFR, BMP, PBNP, TROP #### [place] [address] #### ANEU, ADIFF, CBC #### [address] [address] Chloride [Moles/Vol] 100 98-107 mmol/L Normal 9 [facility] ([place]) (0000 0) Comment: Performed By: #### GFR, BMP, PBNP, TROP #### [place] [address] #### ANEU, ADIFF, CBC #### [address] [address] CO2 [Moles/Vol] 29 23-31 mmol/L Normal 08-17-2019 [facility] ([place]) ([id number]) Comment: Performed By: #### GFR, BMP, PBNP, TROP #### [place] [address] #### ANEU, ADIFF, CBC #### [address] [address] Creatinine [Mass/Vol] 0.99 0.55-1.02 mg/dL Normal 08-17-20 19 [facility] ([place]) ([address]) Comment: Performed By: #### GFR, BMP, PBNP, TROP #### [place] [address] #### ANEU, ADIFF, CBC #### [address] [address] Electrolyte Balance 7.0 mEq/L Normal 08-17-2019 [facility] ([place]) ([address]) Comment: Performed By: #### GFR, BMP, PBNP, TROP #### [place] [address] #### ANEU, ADIFF, CBC #### [address] [address] Glucose [Mass/Vol] 319 80-115 mg/dL High 08-17-2019 [facility] ([place]) ([address]) Comment: Performed By: #### GFR, BMP, PBNP, TROP #### [place] [address] #### ANEU, ADIFF, CBC #### [address] [address] Potassium [Moles/Vol] 4.1 3.5-5.1 mmol/L Normal 08-17-20 19 [facility] ([place]) (0000 0) Comment: Performed By: #### GFR, BMP, PBNP, TROP #### [place] [address] #### ANEU, ADIFF, CBC #### [address] [address] Sodium [Moles/Vol] 136 136-145 mmol/L Normal 08-17-2019 [facility] ([place]) (0000 0) Comment: Performed By: #### GFR, BMP, PBNP, TROP #### [place] [address] #### ANEU, ADIFF, CBC #### [address] [address] Urea nitrogen [Mass/Vol] 12 7-18 mg/dL Normal 08-17 [facility] ([place]) (0000 0) Comment: Performed By: #### GFR, BMP, PBNP, TROP #### [place] [address] #### ANEU, ADIFF, CBC #### [address] [address] Urea nitrogen/Creatinine [Mass 12 7-27 ratio Normal 08-17-2019 [facility]] [facility] ([place]) ([address]) Comment: Performed By: #### GFR, BMP, PBNP, TROP #### [place] [address] #### ANEU, ADIFF, CBC #### [address] [address] .neuabs on Neutrophils (Bld) 7.60 2.85-6.16 10 3/mcL High 08-17-2019 [facility] [#/Vol] [facility] ([place]) ([address]) Comment: Performed By: #### GFR, BMP, PBNP, TROP #### [place] [address] #### ANEU, ADIFF, CBC #### [address] [address] .gfr on 2019-08-17 GFR 68 ml/min/1.73sqm Normal 07-21 [facility] ([place]) (0000 0) Comment: Result Comment: GFR Population mean for Afri can Hungarian, Non- Americans Ages 20-29 = 116 mL/min/1.73 sq.m. Ages 30-39 = 107 mL/min/1.73 sq.m. Ages 40-49 = 99 mL/min/1.73 sq.m. Ages 50-59 = 93 mL/min/1.73 sq.m. Ages 60-69 = 85 mL/min/1.73 sq.m. Ages 70+ = 75 mL/min/1.73 sq .m. Chronic Kidney Disease: Less than 60 mL/min/1.73 square meters End Stage Renal Disease: Les s than 15 mL/min/1.73 square meters Performed By: #### GFR, BMP, PBNP, TROP #### [place] [address] #### ANEU, ADIFF, CBC #### [address] [address] GFR Non- 56 ml/min/1.73sqm Normal 08-17-2019 [facility] ([place]) ([address]) Comment: Result Comment: GFR Population mean for Afri can Hungarian, Non- Americans Ages 20-29 = 116 mL/min/1.73 sq.m. Ages 30-39 = 107 mL/min/1.73 sq.m. Ages 40-49 = 99 mL/min/1.73 sq.m. Ages 50-59 = 93 mL/min/1.73 sq.m. Ages 60-69 = 85 mL/min/1.73 sq.m. Ages 70+ = 75 mL/min/1.73 sq .m. Chronic Kidney Disease: Less than 60 mL/min/1.73 square meters End Stage Renal Disease: Les s than 15 mL/min/1.73 square meters Performed By: #### GFR, BMP, PBNP, TROP #### [place] [address] #### ANEU, ADIFF, CBC #### [address] [address] .auto diff on 08-17 Ammonia (P) [Mass/Vol] 0.70 0.15-1.00 10 3/mcL Normal 019 [facility] ([place]) ([address]) Comment: Performed By: #### GFR, BMP, PBNP, TROP #### [place] [address] #### ANEU, ADIFF, CBC #### [address] [address] Basophils (Bld) 0.10 0.00-0.19 10 3/mcL Normal 08-17-[address] [facility] [#/Vol] [facility] ([place]) ([address]) Comment: Performed By: #### GFR, BMP, PBNP, TROP #### [place] [address] #### ANEU, ADIFF, CBC #### [address] [address] Basophils/100 WBC (Bld) 0.6 0.0-2.5 % Normal 2018 [facility] ([place]) (0000 0) Comment: Performed By: #### GFR, BMP, PBNP, TROP #### [place] [address] #### ANEU, ADIFF, CBC #### [address] [address] Eosinophils (Bld) 0.30 0.00-0.40 10 3/mcL Normal 08-17-2019 [facility] [#/Vol] [facility] ([place]) ([address]876) Comment: Performed By: #### GFR, BMP, PBNP, TROP #### [place] [address] #### ANEU, ADIFF, CBC #### [address] [address] Eosinophils/100 WBC (Bld) 2.6 0.0-7.0 % Normal 07-21 [facility] ([place]) (0000 0) Comment: Performed By: #### GFR, BMP, PBNP, TROP #### [place] [address] #### ANEU, ADIFF, CBC #### [address] [address] Lymphocytes (Bld) 2.10 0.77-3.85 10 3/mcL Normal 08-17-2019 [facility] [#/Vol] [facility] ([place]) ([address]) Comment: Performed By: #### GFR, BMP, PBNP, TROP #### [place] [address] #### ANEU, ADIFF, CBC #### [address] [address] Lymphocytes/100 WBC (Bld) 19.5 10.0-50.0 % Normal 07-21 [facility] ([place]) ([address]) Comment: Performed By: #### GFR, BMP, PBNP, TROP #### [place] [address] #### ANEU, ADIFF, CBC #### [address] [address] Monocytes/100 WBC (Bld) 6.5 1.7-13.0 % Normal 2018 [facility] ([place]) (0000 0) Comment: Performed By: #### GFR, BMP, PBNP, TROP #### [place] [address] #### ANEU, ADIFF, CBC #### [address] [address] Neutrophils/100 WBC (Bld) 70.8 37.0-80.0 % Normal 07-21 [facility] ([place]) ([address]) Comment: Performed By: #### GFR, BMP, PBNP, TROP #### [place] [address] #### ANEU, ADIFF, CBC #### [address] [address] xr femur minimum 2 views left on 2019-07-31 XR FEMUR MINIMUM 2 ORIGINAL Normal 07-31-2019 [facility] VIEWS LEFT XR FEMUR 4 VIEWS LEFT [facility] ([place]) ([id number]) CLINICAL STATEMENT: pain, in left hip. COMPARISON: None FINDINGS: AP and frog-leg vi ews of the proximal femur were obtained along with AP and lateral views of the mid and distal femur. No acute fracture or dislocation is identified. Proximal and distal joint spaces are maintained. No soft tissue abnormality is seen. IMPRESSION: Negative exam. Interpreted By: Sterling Valera MD Preliminary Report By: Sterling Valera MD Electronically Signed By: Sterling Valera MD Dictated Date: 07/31/2019 9:40:11 AM Prelim Date: 07/31/2019 9:40:11 AM Sign Date: 07/31/2019 9:49:04 AM Ordering Provider:You lund on 2019-06-14 CUR . Normal 06-14-2019 [facility] - Microbiology [facility] ([place]) ([id number]) PROCEDURE: Urine Culture [*1] SOURCE: Urine, Clean Catch BODY SITE: COLLECTED DATE/TIME: 019 09:33 EDT RECEIVED DATE/TIME: 06/12/2019 14:58 EDT START DATE/TIME: 06/12/2019 14:58 EDT FREE TEXT SOURCE: FINAL REPORTS Final Report [] Verified Date/Time/Personnel: 06/14/2019 11:36 EDT >100,000 organisms per mL Citrobacter freundii PRELIMINARY REPORTS Preliminary Report [] Verified Date/Time/Personnel: 06/13/2019 14:49 EDT >100,000 organisms per mL Gram Negative Rods Final identification and RICKY to follow. SUSCEPTIBILITY RESULTS Citrobacter freundii Antibiotic RICKY Dilutn RICKY Interp Ampicillin >16 Resistant Cefazolin >16 Resistant Cefotaxime <=2 Susceptible Cefuroxime <=4 Resistant Ciprofloxacin <=1 Susceptible Gentamicin >8 Resistant Levofloxacin <=2 Susceptible Meropenem <=1 Susceptible Nitrofurantoin <=32 Susceptible Piperacillin/ <=16 Susceptible Tazobactam Tobramycin 8 Intermediate Trimethoprim/ >2/38 Resistant Sulfa Performing Locations *1: This test was performed at: [facility], [address] [place] [address], [id number] , [place] Comment: Performed By: #### GFR, BMP, PBNP, TROP #### [address] [address] #### ANEU, ADIFF, CBC #### [place] [address] [place], [place] [address] cbc on 2019-06-13 Erythrocyte distribution 15.3 11.5-14.5 % High 06-13 [facility] width (RBC) [Ratio] ([place]) ([id number]) Comment: Performed By: #### GFR, BMP, PBNP, TROP #### [place] [address] #### ANEU, ADIFF, CBC #### [address] [address] Hematocrit (Bld) [Volume 35.2 37.0-47.0 % Low 06-13 [facility] fraction] ([place]) (0000 0) Comment: Performed By: #### GFR, BMP, PBNP, TROP #### [place] [address] #### ANEU, ADIFF, CBC #### [address] [address] Hemoglobin (Bld) 11.6 12.0-16.0 G/dL Low 06-13-2019 [facility] [Mass/Vol] ([place]) (000 00) Comment: Performed By: #### GFR, BMP, PBNP, TROP #### [place] [address] #### ANEU, ADIFF, CBC #### [address] [address] MCH (RBC) [Entitic mass] 27.8 27.0-31.2 pg Normal 06-13 [facility] ([place]) (0000 0) Comment: Performed By: #### GFR, BMP, PBNP, TROP #### [place] [address] #### ANEU, ADIFF, CBC #### [address] [address] MCHC (RBC) [Mass/Vol] 33.0 33.0-37.0 G/dL Normal 06-13-20 [facility] ([place]) (0000 0) Comment: Performed By: #### GFR, BMP, PBNP, TROP #### [place] [address] #### ANEU, ADIFF, CBC #### [address] [address] MCV (RBC) [Entitic vol] 84.3 80.0-94.0 fL Normal 2018 [facility] ([place]) (0000 0) Comment: Performed By: #### GFR, BMP, PBNP, TROP #### [place] [address] #### ANEU, ADIFF, CBC #### [address] [address] Platelet mean volume 7.4 7.4-10.4 fL Normal 9 [facility] (Bld) [Entitic vol] ([place]) ([address]) Comment: Performed By: #### GFR, BMP, PBNP, TROP #### [place] [address] #### ANEU, ADIFF, CBC #### [address] [address] Platelets (Bld) [#/Vol] 234 130-400 10 3/mcL Normal 2018 [facility] ([place]) ([address]45) Comment: Performed By: #### GFR, BMP, PBNP, TROP #### [place] [address] #### ANEU, ADIFF, CBC #### [address] [address] RBC (Bld) [#/Vol] 4.17 4.20-5.40 10 6/mcL Low 06-13-2019 [facility] ([place]) (0000 0) Comment: Performed By: #### GFR, BMP, PBNP, TROP #### [place] [address] #### ANEU, ADIFF, CBC #### [address] [address] WBC (Bld) [#/Vol] 11.60 4.60-10.80 10 3/mcL High 06-13-2019 [facility] ([place]) (0000 0) Comment: Performed By: #### GFR, BMP, PBNP, TROP #### [place] [address] #### ANEU, ADIFF, CBC #### [address] [address] bmp on 2019-06-13 Calcium [Mass/Vol] 8.5 8.4-10.2 mg/dL Normal 06-13-2019 [facility] ([place]) (0000 0) Comment: Performed By: #### GFR, BMP, PBNP, TROP #### [place] [address] #### ANEU, ADIFF, CBC #### [address] [address] Chloride [Moles/Vol] 101 98-107 mmol/L Normal 9 [facility] ([place]) (0000 0) Comment: Performed By: #### GFR, BMP, PBNP, TROP #### [place] [address] #### ANEU, ADIFF, CBC #### [address] [address] CO2 [Moles/Vol] 38 23-31 mmol/L High 06-13-2019 [facility] ([place]) ([address]) Comment: Performed By: #### GFR, BMP, PBNP, TROP #### [place] [address] #### ANEU, ADIFF, CBC #### [address] [address] Creatinine [Mass/Vol] 1.42 0.55-1.02 mg/dL High 06-13-20 19 [facility] ([place]) (0000 0) Comment: Performed By: #### GFR, BMP, PBNP, TROP #### [place] [address] #### ANEU, ADIFF, CBC #### [address] [address] Electrolyte Balance 3.0 mEq/L Normal 06-13-2019 [facility] ([place]) ([address]) Comment: Performed By: #### GFR, BMP, PBNP, TROP #### [place] [address] #### ANEU, ADIFF, CBC #### [address] [address] Glucose [Mass/Vol] 164 80-115 mg/dL High 06-13-2019 [facility] ([place]) ([address]87) Comment: Performed By: #### GFR, BMP, PBNP, TROP #### [place] [address] #### ANEU, ADIFF, CBC #### [address] [address] Potassium [Moles/Vol] 4.0 3.5-5.1 mmol/L Normal 06-13-20 [facility] ([place]) (0000 0) Comment: Performed By: #### GFR, BMP, PBNP, TROP #### [place] [address] #### ANEU, ADIFF, CBC #### [address] [address] Sodium [Moles/Vol] 142 136-145 mmol/L Normal 06-13-2019 [facility] ([place]) (0000 0) Comment: Performed By: #### GFR, BMP, PBNP, TROP #### [place] [address] #### ANEU, ADIFF, CBC #### [address] [address] Urea nitrogen [Mass/Vol] 10 7-18 mg/dL Normal 06-13 [facility] ([place]) (0000 0) Comment: Performed By: #### GFR, BMP, PBNP, TROP #### [place] [address] #### ANEU, ADIFF, CBC #### [address] [address] Urea nitrogen/Creatinine [Mass 7 7-27 ratio Normal 06-13-2019 [facility]] [facility] ([place]) ([address]) Comment: Performed By: #### GFR, BMP, PBNP, TROP #### [address] [address] #### ANEU, ADIFF, CBC #### [address] [address] .neuabs on Neutrophils (Bld) 8.40 2.85-6.16 10 3/mcL High 06-13-2019 [facility] [#/Vol] [facility] ([place]) ([address]144) Comment: Performed By: #### GFR, BMP, PBNP, TROP #### [place] [id number] #### ANEU, ADIFF, CBC #### [address] [address] .gfr on 2019-06-13 GFR 45 ml/min/1.73sqm Normal 05-20 [facility] ([place]) (0000 0) Comment: Result Comment: GFR Population mean for Afri can Hungarian, Non- Americans Ages 20-29 = 116 mL/min/1.73 sq.m. Ages 30-39 = 107 mL/min/1.73 sq.m. Ages 40-49 = 99 mL/min/1.73 sq.m. Ages 50-59 = 93 mL/min/1.73 sq.m. Ages 60-69 = 85 mL/min/1.73 sq.m. Ages 70+ = 75 mL/min/1.73 sq .m. Chronic Kidney Disease: Less than 60 mL/min/1.73 square meters End Stage Renal Disease: Les s than 15 mL/min/1.73 square meters Performed By: #### GFR, BMP, PBNP, TROP #### [address] [address] #### ANEU, ADIFF, CBC #### [address] [address] GFR Non- 37 ml/min/1.73sqm Normal 06-13-2019 [facility] ([place]) (89273) Comment: Result Comment: GFR Population mean for Afri can Hungarian, Non- Americans Ages 20-29 = 116 mL/min/1.73 sq.m. Ages 30-39 = 107 mL/min/1.73 sq.m. Ages 40-49 = 99 mL/min/1.73 sq.m. Ages 50-59 = 93 mL/min/1.73 sq.m. Ages 60-69 = 85 mL/min/1.73 sq.m. Ages 70+ = 75 mL/min/1.73 sq .m. Chronic Kidney Disease: Less than 60 mL/min/1.73 square meters End Stage Renal Disease: Les s than 15 mL/min/1.73 square meters Performed By: #### GFR, BMP, PBNP, TROP #### [place] [address] #### ANEU, ADIFF, CBC #### [address] [address] .auto diff on 06-13 Ammonia (P) [Mass/Vol] 0.90 0.15-1.00 10 3/mcL Normal [address] [place] [address] ([place]) ([address]) Comment: Performed By: #### GFR, BMP, PBNP, TROP #### [place] [address] #### ANEU, ADIFF, CBC #### [address] [address] Basophils (Bld) 0.10 0.00-0.19 10 3/mcL Normal 06-13-[address] [facility] [#/Vol] [facility] ([place]) ([address]) Comment: Performed By: #### GFR, BMP, PBNP, TROP #### [place] [address] #### ANEU, ADIFF, CBC #### [address] [address] Basophils/100 WBC (Bld) 0.5 0.0-2.5 % Normal 2018 [facility] ([place]) (0000 0) Comment: Performed By: #### GFR, BMP, PBNP, TROP #### [place] [address] #### ANEU, ADIFF, CBC #### [address] [address] Eosinophils (Bld) 0.30 0.00-0.40 10 3/mcL Normal 06-13-2019 [facility] [#/Vol] [facility] ([place]) ([address]1930) Comment: Performed By: #### GFR, BMP, PBNP, TROP #### [place] [address] #### ANEU, ADIFF, CBC #### [address] [address] Eosinophils/100 WBC (Bld) 2.3 0.0-7.0 % Normal 05-20 [facility] ([place]) (0000 0) Comment: Performed By: #### GFR, BMP, PBNP, TROP #### [place] [address] #### ANEU, ADIFF, CBC #### [address] [address] Lymphocytes (Bld) 2.10 0.77-3.85 10 3/mcL Normal 06-13-2019 [facility] [#/Vol] [facility] ([place]) ([address]72) Comment: Performed By: #### GFR, BMP, PBNP, TROP #### [place] [address] #### ANEU, ADIFF, CBC #### [address] [address] Lymphocytes/100 WBC (Bld) 17.9 10.0-50.0 % Normal 05-20 [facility] ([place]) (67706) Comment: Performed By: #### GFR, BMP, PBNP, TROP #### [place] [address] #### ANEU, ADIFF, CBC #### [address] [address] Monocytes/100 WBC (Bld) 7.4 1.7-13.0 % Normal 2018 [facility] ([place]) (0000 0) Comment: Performed By: #### GFR, BMP, PBNP, TROP #### [address] [address] #### ANEU, ADIFF, CBC #### [facility] [address] [place], [place] [address] Neutrophils/100 WBC (Bld) 71.9 37.0-80.0 % Normal 05-20 [facility] ([place]) ([id number]) Comment: Performed By: #### GFR, BMP, PBNP, TROP #### [address] [address] #### ANEU, ADIFF, CBC #### [facility] [address] [place], [place] [address] xr chest 2 views on 2019-06-12 XR CHEST 2 VIEWS ORIGINAL Normal 06-12-2019 [facility] Chest PA and lateral 06/12/2019 9:43 AM [facility] ([place]) ([id number]) History: Chest Pain The heart and pulmonary vess els are normal in size. The lungs are well aerated and there are no acute appearing infiltrates or effusions. There is no evidence for pneumothorax. Summary: Normal chest Interpreted By: Teja Nash Preliminary Report By: Teja Nash Electronically Signed By: Teja Nash Dictated Date: 06/12/2019 9:52:20 AM Prelim Date: 06/12/2019 9:52:20 AM Sign Date: 06/12/2019 9:52:35 AM Ordering Provider:Fabby davis on 2019-06-12 Color (U) Yellow Normal 06-12-2019 [facility] ([place]) ([id number]) Comment: Performed By: #### UAMICAO, UA #### [address] [address] Glucose (U) [Mass/Vol] Negative Negative mg/dL Normal 019 [facility] ([place]) ([address]51) Comment: Performed By: #### UAMICAO, UA #### [address] [address] Ketones Ql (U) Negative Negative Normal 06-12-2019 On license of [facility] ([place]) ([address]56) Comment: Performed By: #### UAMICAO, UA #### [address] [address] UA Appear Cloudy Clear Abnormal 06-12-2019 [facility] ([place]) (68739) Comment: Performed By: #### UAMICAO, UA #### [address] [address] UA Blood Small Negative Abnormal 06-12-2019 [facility] ([place]) ([address]88) Comment: Performed By: #### UAMICAO, UA #### [address] [address] UA Leuk Est Moderate Negative Abnormal 06-12-2019 [facility] ([place]) ([id number]) Comment: Performed By: #### UAMICAO, UA #### [address] [address] UA Nitrite Positive Negative Abnormal 06-12-2019 [facility] ([place]) (75329) Comment: Performed By: #### UAMICAO, UA #### [place] [address] UA pH 7.0 5.0 - 8.0 Normal 06-12-2019 [facility] ([place]) ([address]297) Comment: Performed By: #### UAMICAO, UA #### [place] [address] UA Protein 30 Negative mg/dL Normal 06-12-2019 [facility] ([place]) ([address]35) Comment: Performed By: #### UAMICAO, UA #### [address] [address] UA Spec Grav 1.015 1.015-1.025 Normal 06-12-2019 On license of [facility] ([place]) ([address]) Comment: Performed By: #### UAMICAO, UA #### [address] [address] UA Specimen Type Clean Catch Normal 06-12-2019 [facility] ([place]) ([id number]) Comment: Performed By: #### UAMICAO, UA #### [address] [address] UA Urobilinogen 0.2 0.2-1.0 E.U./dL Normal 06-12-2019 [facility] ([place]) ([id number]) Comment: Performed By: #### UAMICAO, UA #### [address] [address] Urobilinogen Qn (U) Negative Negative Normal 06-12-2019 [facility] ([place]) (0000 0) Comment: Performed By: #### UAMICAO, UA #### [address] [address] trop on 2019-06-12 Troponin I.cardiac <0.020 0.000-0.040 ng/mL Normal 9 [facility] [Mass/Vol] [facility] [facility] ([place] ([id number]) Comment: Result Comment: Troponin I r eference range: 0.00-0.040 ng/mL Negative an d non-diagnostic. >0.040 ng/mL Consistent with cardiac damage, increased clinical risk and possibility of myocardial in farction. Serial measurements, a rise & fall in test results, clinical histo ry, appropriate symptoms and/or ECG changes may help assess possibility of [place]. *Other non-acute coronary sy ndrome conditions such as CHF, myoc arditis, pulmonary emboli, sepsis and cardiac surgery could result in myoc ardial damage and increased troponi n levels. Performed By: #### GFR, BMP, PBNP, TROP #### [place] [address] #### ANEU, ADIFF, CBC #### [address] [address] pbnp on 2019-06-12 Natriuretic peptide B (Bld) 940 0-125 pg/mL High [facility] [Mass/Vol] ([place]) (000 00) Comment: Result Comment: NT-proBNP re sults of less than 300 pg/mL effectively rules out acute congestive h eart failure with 99% negative predictive value. Performed By: #### GFR, BMP, PBNP, TROP #### [place] [address] #### ANEU, ADIFF, CBC #### [address] [address] cbc on 2019-06-12 Erythrocyte distribution 14.8 11.5-14.5 % High 06-12 [facility] width (RBC) [Ratio] ([place]) (64301) Comment: Performed By: #### GFR, BMP, PBNP, TROP #### [place] [address] #### ANEU, ADIFF, CBC #### [address] [address] Hematocrit (Bld) [Volume 37.7 37.0-47.0 % Normal 06-12 [facility] fraction] ([place]) (0000 0) Comment: Performed By: #### GFR, BMP, PBNP, TROP #### [place] [address] #### ANEU, ADIFF, CBC #### [address] [address] Hemoglobin (Bld) 12.5 12.0-16.0 G/dL Normal 06-12-2019 [facility] [Mass/Vol] [place] n ([place]) (01945) Comment: Performed By: #### GFR, BMP, PBNP, TROP #### [place] [address] #### ANEU, ADIFF, CBC #### [address] [address] MCH (RBC) [Entitic mass] 27.8 27.0-31.2 pg Normal 06-12 [facility] ([place]) (0000 0) Comment: Performed By: #### GFR, BMP, PBNP, TROP #### [place] [address] #### ANEU, ADIFF, CBC #### [address] [address] MCHC (RBC) [Mass/Vol] 33.2 33.0-37.0 G/dL Normal 06-12-20 [facility] ([place]) (0000 0) Comment: Performed By: #### GFR, BMP, PBNP, TROP #### [place] [address] #### ANEU, ADIFF, CBC #### [address] [address] MCV (RBC) [Entitic vol] 83.8 80.0-94.0 fL Normal 2018 [facility] ([place]) (0000 0) Comment: Performed By: #### GFR, BMP, PBNP, TROP #### [place] [address] #### ANEU, ADIFF, CBC #### [address] [address] Platelet mean volume 8.1 7.4-10.4 fL Normal 9 [facility] (Bld) [Entitic vol] ([place]) (61770) Comment: Performed By: #### GFR, BMP, PBNP, TROP #### [place] [address] #### ANEU, ADIFF, CBC #### [address] [address] Platelets (Bld) [#/Vol] 242 130-400 10 3/mcL Normal 2018 [facility] ([place]) (75432) Comment: Performed By: #### GFR, BMP, PBNP, TROP #### [place] [address] #### ANEU, ADIFF, CBC #### [address] [address] RBC (Bld) [#/Vol] 4.50 4.20-5.40 10 6/mcL Normal 06-12-2019 [facility] ([place]) (0000 0) Comment: Performed By: #### GFR, BMP, PBNP, TROP #### [place] [address] #### ANEU, ADIFF, CBC #### [address] [address] WBC (Bld) [#/Vol] 10.00 4.60-10.80 10 3/mcL Normal 06-12-2019 [facility] ([place]) (34048) Comment: Performed By: #### GFR, BMP, PBNP, TROP #### [address] [address] #### ANEU, ADIFF, CBC #### [address] [address] bmp on 2019-06-12 Calcium [Mass/Vol] 8.2 8.4-10.2 mg/dL Low 06-12-2019 [facility] ([place]) (86644) Comment: Order Comment: Hemolyzed - P lease redraw Performed By: #### GFR, BMP, PBNP, TROP #### [address] [address] #### ANEU, ADIFF, CBC #### [address] [address] Chloride [Moles/Vol] 101 98-107 mmol/L Normal [facility] ([place]) (0000 0) Comment: Order Comment: Hemolyzed - P lease redraw Performed By: #### GFR, BMP, PBNP, TROP #### [address] [address] #### ANEU, ADIFF, CBC #### [address] [address] CO2 [Moles/Vol] 30 23-31 mmol/L Normal 06-12-2019 [facility] ([place]) (58224) Comment: Order Comment: Hemolyzed - P lease redraw Performed By: #### GFR, BMP, PBNP, TROP #### [address] [address] #### ANEU, ADIFF, CBC #### [address] [address] Creatinine [Mass/Vol] 1.07 0.55-1.02 mg/dL High 06-12-20 19 [facility] ([place]) (0000 0) Comment: Order Comment: Hemolyzed - P lease redraw Performed By: #### GFR, BMP, PBNP, TROP #### [place] [address] #### ANEU, ADIFF, CBC #### [address] [address] Electrolyte Balance 9.0 mEq/L Normal 06-12-2019 [facility] ([place]) (94526) Comment: Order Comment: Hemolyzed - P lease redraw Performed By: #### GFR, BMP, PBNP, TROP #### [place] [address] #### ANEU, ADIFF, CBC #### [address] [address] Glucose [Mass/Vol] 232 80-115 mg/dL High 06-12-2019 [facility] ([place]) (43383) Comment: Order Comment: Hemolyzed - P lease redraw Performed By: #### GFR, BMP, PBNP, TROP #### [place] [address] #### ANEU, ADIFF, CBC #### [address] [address] Potassium [Moles/Vol] 3.8 3.5-5.1 mmol/L Normal 06-12-20 [facility] ([place]) (0000 0) Comment: Order Comment: Hemolyzed - P lease redraw Performed By: #### GFR, BMP, PBNP, TROP #### [place] [address] #### ANEU, ADIFF, CBC #### [address] [address] Sodium [Moles/Vol] 140 136-145 mmol/L Normal 06-12-2019 [facility] ([place]) (0000 0) Comment: Order Comment: Hemolyzed - P lease redraw Performed By: #### GFR, BMP, PBNP, TROP #### [place] [address] #### ANEU, ADIFF, CBC #### [address] [address] Urea nitrogen [Mass/Vol] 7 7-18 mg/dL Normal 06-12 [facility] ([place]) (0000 0) Comment: Order Comment: Hemolyzed - P lease redraw Performed By: #### GFR, BMP, PBNP, TROP #### [address] [address] #### ANEU, ADIFF, CBC #### [address] [address] Urea nitrogen/Creatinine [Mass 7 7-27 ratio Normal 06-12-2019 [facility]] [facility] ([place]) (90983) Comment: Order Comment: Hemolyzed - P lease redraw Performed By: #### GFR, BMP, PBNP, TROP #### [place] [address] #### ANEU, ADIFF, CBC #### [address] [address] .urinalysis microscopic (ao) on 2019-06-12 RBC (U) [#/Vol] 0-5 None Seen Abnormal 06-12-2019 [facility] ([place]) (94307) Comment: Performed By: #### UAMICAO, UA #### [place] [address] UA Bacteria 4+ /hpf Abnormal 06-12-2019 [facility] ([place]) (08485) Comment: Performed By: #### UAMICAO, UA #### [place] [address] UA Squam Epithelial 0-5 None Seen Abnormal 06-12-2019 [facility] ([place]) (0000 0) Comment: Performed By: #### UAMICAO, UA #### [address] [address] UA WBC LOADED None Seen Abnormal 06-12-2019 [facility] ([place]) (58623) Comment: Performed By: #### UAMICAO, UA #### [address] [address] .neuabs on Neutrophils (Bld) 6.30 2.85-6.16 10 3/mcL High 06-12-2019 [facility] [#/Vol] [facility] ([place]) (19456) Comment: Performed By: #### GFR, BMP, PBNP, TROP #### [place] [id number] #### ANEU, ADIFF, CBC #### [address] [address] .gfr on 2019-06-12 GFR 63 ml/min/1.73sqm Normal 05-20 [facility] ([place]) (0000 0) Comment: Result Comment: GFR Population mean for Afri can Hungarian, Non- Americans Ages 20-29 = 116 mL/min/1.73 sq.m. Ages 30-39 = 107 mL/min/1.73 sq.m. Ages 40-49 = 99 mL/min/1.73 sq.m. Ages 50-59 = 93 mL/min/1.73 sq.m. Ages 60-69 = 85 mL/min/1.73 sq.m. Ages 70+ = 75 mL/min/1.73 sq .m. Chronic Kidney Disease: Less than 60 mL/min/1.73 square meters End Stage Renal Disease: Les s than 15 mL/min/1.73 square meters Performed By: #### GFR, BMP, PBNP, TROP #### [place] [address] #### ANEU, ADIFF, CBC #### [address] [address] GFR Non- 52 ml/min/1.73sqm Normal 06-12-2019 [facility] ([place]) (41346) Comment: Result Comment: GFR Population mean for Afri can Hungarian, Non- Americans Ages 20-29 = 116 mL/min/1.73 sq.m. Ages 30-39 = 107 mL/min/1.73 sq.m. Ages 40-49 = 99 mL/min/1.73 sq.m. Ages 50-59 = 93 mL/min/1.73 sq.m. Ages 60-69 = 85 mL/min/1.73 sq.m. Ages 70+ = 75 mL/min/1.73 sq .m. Chronic Kidney Disease: Less than 60 mL/min/1.73 square meters End Stage Renal Disease: Les s than 15 mL/min/1.73 square meters Performed By: #### GFR, BMP, PBNP, TROP #### [place] [address] #### ANEU, ADIFF, CBC #### [address] [address] .auto diff on 06-12 Ammonia (P) [Mass/Vol] 0.70 0.15-1.00 10 3/mcL Normal 019 [facility] ([place]) (98984) Comment: Performed By: #### GFR, BMP, PBNP, TROP #### [place] [address] #### ANEU, ADIFF, CBC #### [address] [address] Basophils (Bld) 0.20 0.00-0.19 10 3/mcL High 06-12-[address] [facility] [#/Vol] [facility] ([place]) (07300) Comment: Performed By: #### GFR, BMP, PBNP, TROP #### [place] [address] #### ANEU, ADIFF, CBC #### [address] [address] Basophils/100 WBC (Bld) 1.5 0.0-2.5 % Normal 2018 [facility] ([place]) (0000 0) Comment: Performed By: #### GFR, BMP, PBNP, TROP #### [place] [address] #### ANEU, ADIFF, CBC #### [address] [address] Eosinophils (Bld) 0.40 0.00-0.40 10 3/mcL Normal 06-12-2019 [facility] [#/Vol] [facility] ([place]) (29847) Comment: Performed By: #### GFR, BMP, PBNP, TROP #### [place] [address] #### ANEU, ADIFF, CBC #### [address] [address] Eosinophils/100 WBC (Bld) 3.5 0.0-7.0 % Normal 05-20 [facility] ([place]) (0000 0) Comment: Performed By: #### GFR, BMP, PBNP, TROP #### [place] [address] #### ANEU, ADIFF, CBC #### [address] [address] Lymphocytes (Bld) 2.50 0.77-3.85 10 3/mcL Normal 06-12-2019 [facility] [#/[facility]] [facility] ([place]) (47267) Comment: Performed By: #### GFR, BMP, PBNP, TROP #### [place] [address] #### ANEU, ADIFF, CBC #### [address] [address] Lymphocytes/100 WBC (Bld) 24.7 10.0-50.0 % Normal 05-20 [facility] ([place]) (42427) Comment: Performed By: #### GFR, BMP, PBNP, TROP #### [place] [address] #### ANEU, ADIFF, CBC #### [address] [address] Monocytes/100 WBC (Bld) 6.9 1.7-13.0 % Normal 2018 [facility] ([place]) (0000 0) Comment: Performed By: #### GFR, BMP, PBNP, TROP #### [place] [address] #### ANEU, ADIFF, CBC #### [address] [address] Neutrophils/100 WBC (Bld) 63.4 37.0-80.0 % Normal 05-20 [facility] ([place]) (88326) Comment: Performed By: #### GFR, BMP, PBNP, TROP #### [facility] [address] [place], [place] [address] #### ANEU, ADIFF, CBC #### [place] [address] [place], [place] [address] urine w microsc on 2018-08-31 Appearance Nom (U) Cloudy CLEAR Normal 08-31-2018 [facility] (33520) Comment: Performed By: #### L600.0000 3 ####[facility] [id number] [place], [place] [address]Vp# [phone] Color Nom (U) Yellow Normal 08-31-2018 [facility] (62193) Comment: Performed By: #### L600.0000 3 ####[facility] [id number] [place], [place] [address]Ne# [phone] Glucose mass conc (U) NEG mg/dL Normal 08-31-19 [facility] (83173) Comment: Performed By: #### L600.0000 3 ####[facility] [id number] [place], [place] [address]Fb# HYALINE CAST 86 0-1 /LPF High 08-31-2018 [facility] (29101) Comment: Performed By: #### L600.0000 3 ####[facility] [id number] [place], [place] [address]Kr# Mucus Ql (Urine sed) TRACE Normal 9 [facility] (91375) Comment: Performed By: #### L600.0000 3 ####[facility] [id number] [place], [place] [address]Re# [phone] Protein mass conc (U) NEGATIVE NEGATIVE mg/dL Normal 08-31-19 [facility] (00 000) Comment: Performed By: #### L600.0000 3 ####[facility] [id number] [place], [place] [address]Bs# [phone] SQUAMOUS EPIS 1 0-5 EPI/HPF Normal 08-31-2018 [facility] (79450) Comment: Performed By: #### L600.0000 3 ####[facility] [id number] [place], [place] [address]Fa# [phone] UA BACTERIA 4+ NONE /HPF Normal 08-31-2018 [facility] (69956) Comment: Performed By: #### L600.0000 3 ####[facility] [id number] [place], [place] [address]Pa# UA BILIRUBIN NEGATIVE Normal 08-31-2018 [facility] (94521) Comment: Performed By: #### L600.0000 3 ####[facility] [id number] [place], [place] [address]Zd# UA BLOOD NEGATIVE NEGATIVE Normal 08-31-2018 [facility] (86318) Comment: Performed By: #### L600.0000 3 ####[facility] [id number] [place] [address]Nl# [phone] UA KETONE NEGATIVE Normal 08-31-2018 [facility] (82400) Comment: Performed By: #### L600.0000 3 ####[facility] [id number] [place], [place] [address]Ti# UA LK ESTERASE 500 NEGATIVE Normal 08-31-2018 [facility] (90503) Comment: Performed By: #### L600.0000 3 ####[facility] [id number] [place], [place] [address]Kg# [phone] UA NITRITE NEGATIVE NEGATIVE Normal 08-31-2018 [facility] (93901) Comment: Performed By: #### L600.0000 3 ####[facility] [id number] [place], [place] [address]Hl# UA PH 5.0 Normal 08-31-2018 [facility] (92467) Comment: Performed By: #### L600.0000 3 ####[facility] [id number] [place], [place] [address]Ut# [phone] UA RBC 1 0-3 RBC/HPF Normal 08-31-2018 [facility] (50960) Comment: Performed By: #### L600.0000 3 ####[facility] [id number] [place], [place] [address]Cu# [phone] UA SPEC GRAV 1.013 1.005-1.030 Normal 08-31-2018 [facility] (38748) Comment: Performed By: #### L600.0000 3 ####[facility] [id number] [place], [place] [address]Pk# [phone] UA UROBILINOGEN NEG Normal 08-31-2018 [facility] (94369) Comment: Performed By: #### L600.0000 3 ####[facility] [id number] [place], [place] [address]Dx# [phone] UA WBC 293 0-5 WBC/HPF High 08-31-2018 [facility] (20685) Comment: Performed By: #### L600.0000 3 ####[facility] [id number] [place], [place] [address]No# UA YEAST MANY NONE Normal 08-31-2018 [facility] (80440) Comment: Performed By: #### L600.0000 3 ####[facility] [id number] [place], [place] [address]Nd# [phone] WBC CLUMPS FEW Normal 08-31-2018 [facility] (24033) Comment: Performed By: #### L600.0000 3 ####[facility] [id number] [place], [place] [address]Sp# [phone] gfr est on IF AMER 14 ML/MIN Normal 08-31-2018 [facility] (69214) Comment: Performed By: #### L500.0140 0, L500.67307, L550.65461 ####[facility] [id number] [place], [place] [address]Mm# [phone] IF non-AFR AMER 12 ML/MIN Normal 08-31-2018 [facility] (63443[facility] Comment: Performed By: #### L500.0140 0, L500.51883, L550.45792 ####[facility] [id number] [place], [place] [address]Lb# [phone] crp on 2018-08-31 CRP mass conc 4.13 0.00-0.32 MG/DL High 08-31-2018 [facility] (62350) Comment: Performed By: #### L500.0140 0, L500.89866, L550.46035 ####[facility] [id number] [place], [place] [address]Xc# [phone] cmp on 2018-08-31 Albumin mass conc 2.9 3.2-5.0 GM/DL Low 08-31-2018 [facility] (05806) Comment: Performed By: #### L500.0140 0, L500.99366, L550.44309 ####[facility] [id number] [place], [place] [address]Mg# [phone] Albumin/Globulin mass ratio 0.9 0.8-2.0 {ratio} Normal [facility] [place] ton (33134) Comment: Performed By: #### L500.0140 0, L500.65421, L550.88694 ####[facility] [id number] [place], [place] [address]Bh# [phone] ALK PHOS 179 45-117 U/L High 08-31-2018 [facility] (03483) Comment: Performed By: #### L500.0140 0, L500.23463, L550.98052 ####[facility] LSUVHMLLZS7361 [place], [place] [address]Hz# [phone] ALT enzyme act/vol 78 13-61 IU/L High 08-31-2018 [facility] (68232) Comment: Result Comment: RESULTS MAY BE FALSELY DEPRESSED AFTER THE ADMINISTRATION OFSULFASALAZINE AND/OR SULFA PYRIDINE. Performed By: #### L500.0140 0, L500.06061, L550.16565 ####[facility] [id number] [place], [place] [address]Tn# [phone] Anion gap molar conc 8 5-16 MMOL/L Normal 9 [facility] (43231) Comment: Performed By: #### L500.0140 0, L500.94881, L550.12153 ####[facility] RINMQENMIB1345 [place], [place] [address]Vb# [phone] BILI TOTAL 1.0 0.2-1.0 MG/DL Normal 08-31-2018 [facility] (43907) Comment: Performed By: #### L500.0140 0, L500.74166, L550.05265 ####[facility] JBRRIZOSMA8467 [place], [place] [address]Dv# [phone] Calcium mass conc 8.5 8.5-10.1 MG/DL Normal 08-31-2018 [facility] (19693) Comment: Performed By: #### L500.0140 0, L500.21140, L550.79399 ####[facility] [id number] [place], [place] [address]Kc# [phone] Chloride molar conc 94 98-107 MMOL/L Low 08-31-2018 [facility] (20030) Comment: Performed By: #### L500.0140 0, L500.87929, L550.29783 ####[facility] ZMQLEJHVBT3953 [place], [place] [address]Fu# [phone] CO2 molar conc 28 21-32 MMOL/L Normal 08-31-2018 [facility] (75719) Comment: Performed By: #### L500.0140 0, L500.19999, L550.37931 ####[facility] OEBYFWEPKF3070 [place], [place] [address]Ec# [phone] Creatinine mass conc 3.850 0.510-0.950 MG/DL High 019 [facility] (00 000) Comment: Result Comment: Patients rec eiving either N-Acetylcysteine (NAC) orMetamizole prior to venipu ncture, may have falsely depressedresults. Performed By: #### L500.0140 0, L500.72514, L550.92671 ####[facility] VUTSNPHAWC5581 [place], [place] [address]Hr# [phone] Globulin mass conc (S) 3.3 2.2-4.2 GM/DL Normal 019 [facility] (00 000) Comment: Performed By: #### L500.0140 0, L500.60035, L550.87112 ####[facility] YTNQGZDTLN5170 [place], [place] [address]Oq# [phone] Glucose mass conc 133 70-100 MG/DL High 08-31-2018 [facility] (27590) Comment: Result Comment: 70-100- Norm al Fasting; 100-125 Impaired Fasting; greaterthan 126 on more than one result- Diabetes. ADA guidelines.Results may be falsely elevated afte r the administration ofSulfapyridine.Results may be falsely depressed after t he administration ofSulfasalazine. Performed By: #### L500.0140 0, L500.07162, L550.45650 ####[facility] OENFZEGXWL8940 [place], [place] [address]Zn# [phone] Potassium molar conc 7.0 3.5-5.1 MMOL/L Critically high [facility] [place] (31050) Comment: Result Comment: Slight Hemol ysis, Result may be falsely increased. CriticalResult(s) Called at: 18:00:05 on 08/31/2018 by: milady hinson and read back by: TAE Roger Performed By: #### L500.0140 0, L500.15339, L550.67178 ####[facility] QDEJEJSKJC2724 [place], [place] [address]Uz# [phone] Protein mass conc 6.2 6.0-8.5 GM/DL Normal 08-31-2018 [facility] (91830) Comment: Performed By: #### L500.0140 0, L500.77461, L550.32002 ####[facility] UGTDEGXBDN1916 [place], [place] [address]Mo# [phone] SGOT (AST) 102 8-34 U/L High 08-31-2018 [facility] (55681) Comment: Result Comment: Slight Hemol ysis, Result may be falsely increased.RESULTS MAY BE FALSELY DEPRESSED AFT ER THE ADMINISTRATION OFSULFASALAZINE AND/OR SULFAPYRIDINE. Performed By: #### L500.0140 0, L500.35241, L550.91904 ####[facility] BJYQZIPHEA7457 [place], [place] [address]Te# [phone] Sodium molar conc 129 136-145 MMOL/L Low 08-31-2018 [facility] (62158) Comment: Performed By: #### L500.0140 0, L500.58363, L550.35691 ####[facility] [id number] [place], [place] [address]To# [phone] Urea nitrogen mass conc 62 7-26 MG/DL High 2018 [facility] (85536) Comment: Performed By: #### L500.0140 0, L500.82684, L550.72891 ####[facility] [id number] [place], [place] [address]Nx# [phone] Urea nitrogen/Creatinine mass 16 15-24 mg/mg Normal 08-31-[address] [facility] ratio [place] (00 000) Comment: Performed By: #### L500.0140 0, L500.64723, L550.84848 ####[facility] HUNFOHURGO1524 [place], [place] [address]Cn# [phone] cbc w/diff on 08-31 BASO ABS 0.10 0-0.2 K/CU MM Normal 08-31-2018 [facility] [place] (03131) Comment: Performed By: #### L200.0005 0 ####[facility] [id number] [place], [place] [address]Bs# Basophils/100 WBC (Bld) 0.3 0-2 % Normal [address] [facility] [place] (49471) Comment: Performed By: #### L200.0005 0 ####[facility] [id number] [place] [address]Yz# EOS ABS 0.30 0-0.5 K/CU MM Normal 08-31-2018 [facility] [place] (58398) Comment: Performed By: #### L200.0005 0 ####[address] [address]Ls# [phone] Eosinophils/100 WBC (Bld) 1.4 0-5 % Normal 08-19 [facility] (34211) Comment: Performed By: #### L200.0005 0 ####[facility] [id number] [place] [address]Se# Erythrocyte distribution width 16.5 11-14.5 % High 08-31-[address] [facility] Ratio (RBC) [place] ( [address]) Comment: Performed By: #### L200.0005 0 ####[facility] [id number] [place] [address]Jg# Hematocrit Volume Fraction 35.7 35.0-47.0 % Normal [facility] ([facility]) [place] (00 000) Comment: Performed By: #### L200.0005 0 ####[facility] [id number] [place] [address]Bq# Hemoglobin mass conc (Bld) 11.1 11.5-15.5 G/DL Low [facility] [place] (00 000) Comment: Performed By: #### L200.0005 0 ####[facility] [id number] [place] [address]Pn# IMMATR GRAN ABS 0.10 Less than 2 K/CU MM Normal 08-31-2018 [facility] ( 000) Comment: Performed By: #### L200.0005 0 ####[address] [address]Nq# IMMATURE GRAN % 0.6 Less than 2 % Normal 08-31-2018 [facility] (34901) Comment: Performed By: #### L200.0005 0 ####[address] [address]Fi# Lymphocytes #/vol (Bld) 4.10 0.9-4.4 K/CU MM Normal 2018 [facility] (00 000) Comment: Performed By: #### L200.0005 0 ####[address] [address]Nt# Lymphocytes/100 WBC (Bld) 18.5 20-40 % Low 08-19 [facility] (60631) Comment: Performed By: #### L200.0005 0 ####[address] [address]Ce# MCHC mass conc (RBC) 31.1 32.0-36.0 GM/DL Low 9 [facility] (85353) Comment: Performed By: #### L200.0005 0 ####[address] [address]Mz# [phone] MCV Entitic volume (RBC) 83.6 80.0-99.0 fl Normal 08-31 [facility] (00 000) Comment: Performed By: #### L200.0005 0 ####[address] [address]Cv# MONO ABS 2.20 0.1-1.1 K/CU MM High 08-31-2018 [facility] (15088) Comment: Performed By: #### L200.0005 0 ####[facility] [id number] [place], [place] [address]Ys# [phone] Monocytes/100 WBC (Bld) 9.8 2-10 % Normal [facility] ([address]) Comment: Performed By: #### L200.0005 0 ####[facility] [id number] [place], [place] [address]Eg# NEUTROPHIL ABS 15.50 2.0-8.3 K/CU MM High 08-31-2018 [facility] (30690) Comment: Performed By: #### L200.0005 0 ####[facility] [id number] [place] [address]Cq# Neutrophils/100 WBC (Bld) 69.4 45-75 % Normal 08-19 [facility] (52142) Comment: Performed By: #### L200.0005 0 ####[facility] [id number] [place] [address]Zf# [phone] Nucleated RBC/100 WBC 0.0 Less than 1 % Normal [address] [facility] Ratio (Bld) [place] ( [address]) Comment: Performed By: #### L200.0005 0 ####[facility] [id number] [place] [address]Xr# Platelet mean volume 11.0 9.4-12.4 fL Normal [address] [facility] Entitic volume (Bld) [place] ([address]) Comment: Performed By: #### L200.0005 0 ####[facility] [id number] [place] [address]Pp# [phone] Platelets #/vol (Bld) 401 150-450 K/CU MM Normal 08-31-19 [facility] (00 000) Comment: Performed By: #### L200.0005 0 ####[facility] [id number] [place] [address] 80[address]Mp# [phone] RBC #/vol (Bld) 4.27 3.90-5.30 M/CU MM Normal 08-31-2018 [facility] (15458) Comment: Performed By: #### L200.0005 0 ####[facility] [id number] [place], [place] [address]Br# WBC #/vol (Bld) 22.3 4.5-11.0 K/CUMM High 08-31-2018 [facility] [facility] ([id number]) Comment: Performed By: #### L200.0005 0 ####[facility] [id number] [place], [place] [address]Nv# progress on 2018-07 Protein HNO ID: [id number]: Ayana ([facility]) ShannonService: Normal 07-23-2018 [facility] (none)Author Type: Nurse PractitionerType: Progress Clinic conc NotesFiled: 07/23/2018 1:20 PMNote Text:Crystal Cramer is a 62 year old female. Patient presents ([id number]) with:New PatientPMH: DM, Fibromyalgia, HTN, HyperlipidemiaCrystal is here as a new patient. Four years ago (2013) she began to haveincreased episodes of nausea. States that she went to GI and she triedreglan, phenergan, zofran, and Haldol. She states that since being placedon the Haldol, she does feel relief from the nausea. She did have gastricemptying study performed that showed delayed gastric emptying and she alsohad a smart pill study that showed some slowed gastric motility. 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 Dr. Steven didattempt to have her on IGG as a result of the antibody and hergastroparesis, but the insurance did not approve.She does still experience constipation. She has a bowel movement every 3days. Denies abdominal discomfort and cramping. If she does not take theHaldol, she will have increased nausea. With the Haldol, it is manageable.She does state that the Haldol causes her to be excessively fatigued.States that she is feeling weaker as a result of increased sleeping whileon this medication. The patient has gone to the ER numerous times as aresult of her nausea.The patient does not elicit any other symptoms upon this visit and deniesany neurological condition that she is aware of.Per the patient's understanding, the purpose of the visit is to evaluateher for the VGKC and determine if there are any neurologicalmanifestations present.REFERRED BY: Dr. Awan reviewedKP data reviewed if doneCOMPASS 31 reviewed as 31 point autonomic review of systems questionsTHIS NOTE IS FOR AT FIRST FOR MY DOCUMENTATION TO PROVIDE CARE, HELPINSUPinMyPet AND COLLEAGUES TO HAVE NEUROLOGICAL CONTEXT OF MY , ANDFOR MY PERSONAL RECORDING TO FACILITATE FUTURE CARE BY HAVING A WRITTENDOCUMENT MEMORY OF OUR CONSULT TOGETHER . THANK YOU FOR UNDERSTANDING THISOFFICE NOTE IS A PHYSICIAN BASED DOCUMENT FOR COMMUNICATION AND CARE.She is brought in today by her alone.Medications Reviewednaloxegol (MOVANTIK) 25 mg tablet Take 25 mg by mouth once daily.haloperidol (HALDOL) 0.5 mg tablet Take 0.5 mg by mouth twice daily.methadone (DOLOPHINE) 5 mg tablet Take 10 mg by mouth once daily. Atbedtimeondansetron orally disintegrating (ZOFRAN ODT) 8 mg disintegrating tabletTake 1 tablet by mouth every 8 hours as needed.promethazine (PHENERGAN) 25 mg tablet Take 25 mg by mouth three timesdaily.promethazine (PHENERGAN) 25 mg tablet Take 1 tablet by mouth every 8 hoursas needed (for nausea).morphine IR 15 mg tablet Take 15 mg by mouth every 4 hours as needed.lamoTRIgine (LAMICTAL) 100 mg tablet Take 100 mg by mouth twice daily.Levothyroxine 50 mcg cap Take by mouth once daily.sertraline (ZOLOFT) 100 mg tablet Take 100 mg by mouth once daily.allopurinol (ZYLOPRIM) 100 mg tablet Take 100 mg by mouth once daily.valsartan (DIOVAN) 80 mg tablet Take 80 mg by mouth once daily.aspirin, enteric coated (ASPIRIN, ENTERIC COATED) 81 mg EC tablet Take 81mg by mouth once daily.INSULIN DEGLUDEC (TRESIBA FLEXTOUCH U-100 SUBCUTANEOUS) Inject 120 mgsubcutaneously once daily.montelukast (SINGULAIR) 10 mg tablet Take 10 mg by mouth daily at bedtime.rOPINIRole 1 mg tablet Take 1 mg by mouth once daily.simvastatin 40 mg tablet Take 40 mg by mouth daily at bedtime.pregabalin (LYRICA) 75 mg capsule Take 150 mg by mouth twice daily.Omeprazole 40 mg capsule Take 40 mg by mouth once daily.HYDROCODONE BIT/ACETAMINOPHEN (VICODIN ORAL) Take by mouth.Allergies ReviewedBactrim [Sulfamethoxazole-trimethoprim] Hives High Allergy 07/31/2017Past Updates...Ciprofloxacin Rash Medium Allergy 06/10/2013 Past Updates...Flexeril [Cyclobenzaprine] Rash Medium Allergy 06/10/2013 PastUpdates...Adverse Reactions/Drug IntolerancesToradol [Ketorolac] Other: See Comments High Side Effect/Intolerance03/22/2006 Past Updates...Increase BPMetformin Other: See Comments Not Specified Side Effect/Ezhrioumssp42/10/2017 Past Updates...MigrainesPAST MEDICAL HISTORY:ACTIVE PROBLEM LISTTuberculosis of Lung, Nodular, Confirmation UnspecifiedDiarrheaNausea AND VomitingPAST SURGICAL HISTORYProcedure Laterality Date- APPENDECTOMY 1973[facility] Colon[facility]- COLONOSCOPY W/BX 05/27/07- EGD W/O OR W/BRUSH/WASH 06/19/2013 EGD- EGD W/O OR W/BRUSH/WASH 02/17/15 EGD- REMOVAL GALLBLADDER CholecystectomySocial History Marital status: Spouse name: Cheikh Years of education: Number of children: 2Social History Main Topics Smoking status: Never Smoker Smokeless tobacco: Never Used Alcohol use: No Drug use: Nofamily history includes Bone cancer in her father; Crohn's disease in hermother and son; Diabetes in her maternal grandmother and mother.Autonomic check list: YES (Y) or NO (N)Dry mouth NDry eyes YChange in sweat NConstipation YAbdominal Bloating with shortly after eating NFluctuation of diarrhea and constipation NUrination NChange in taste NChallenge swallowing foods NSkin changes of blue or redness to distal limbs NFainting /near syncope/syncope NDizziness NLight headiness NChest pain NChallenge in breathing NTachycardia NTemperature Regulation NBright lights N GENERAL:No weight loss, malaise or fevers., SEE HPIHEENT:Negative for frequent or significant headaches, No changes inhearing or vision, no nose bleeds or other nasal problemsNECK:Negative for lumps, goiter, pain and significant neck swellingRESPIRATORY: Negative for cough, wheezing or shortness of breath.CARDIOVASCULAR: Negative for chest pain, leg swelling or palpitations.GASTROINTESTINAL: ConstipationGENITOURINARY: No history of dysuria, frequency or incontinenceMUSKULOSKELETAL: back painNEUROLOGIC:Positive for numbness or tingling of the feet: intermittentSKIN:Negative for lesions, rash, and itching.PSYCHIATRIC: Negative for sleep disturbance, mood disorder and recentpsychosocial stressors.HEMATOLOGIC/LYMPHATIC/IMMUNOLOGIC:Negative for prolonged bleeding,bruising easily or swollen nodes.ENDOCRINE: Negative for cold or heat intolerance, polyuria, polydipsia andgoiter.GLAUCOMA: No BP: (!) 104/46Pulse: 69Resp: 18Weight: 129.3 kg (285 lb)Height: 167.6 cm (5' 6)General AppearancePatient appears well at the time of this appointment.Cardiovascular Examination:No carotid bruit notedHeart has regular rate and rhythmPulses equal bilaterallyNeurological Examination:Cognition:The patient is alert and oriented times threeLucid and organized in conversationAble to tell detailed medical hxSpeech is Normal in fluency volume and clarityContent and Syntax: NormalComprehension: Normal, able to follow several step commandsRepetition: Normal, able to say no ifs ands, or butsNaming: Normal, able to name all objectsReading: NormalAbstract thinking: lie and mistake intact and bird and planeWorld spells backwardsJudgement intact about fire in theaterImmediate recall 3 :3 and Short recall 3:3Able to add quarter, dime, nickel, and pennyNames 10 animals on farm. Clock drawing and writing is normalMMSE is 30/30No frontal release signsCranial Nerves:Pupils are equal and reactive to light.Pupils normal in sizeNormal fundoscopic examExtraocular movements are grossly intactGood saccades and pursuitsNo nystagmusHearing intactGood upgazeVisual davalos are full to confrontation.Facial, motor and sensory exam is symmetricEqual v1,V2, B9Njkiyx is in midline. No tongue fasciculation.Palate is upgoing bilaterallySCM and trapezius are full.Shoulder shrug intact?Motor Exam:?Upper extremity motor exam is 5/5 in deltoid, 5/5 triceps 5/5biceps, 5/5wrist extension, and 5/5 hand director game. Finger extensor 5/5. Finger flexor5/5. Pronation and Supination are full. Full interossei 5/5?Lower extremity is 5/5 in IP, 5/5 quadriceps, 5/5 hamstrings, 5/5 EHL, 5/5TA and 5/5 gastrocnemius. Hip abductors and adductors are 5/5 Toeextensors and flexors are full bilaterally. Foot evertors and inversionsare full bilaterallyTone and bulk is normal and preserved bilaterally of armsTone and bulk is normal and preserved bilaterally of legsHammer toes present bilaterally?The patient is without significant pronator drift.?Sensation:Decreased pinprick sensation bilaterally of legs that improves withproximity to core. Normal toe position. Absent vibratory sensationbilateral feet, present at shins for approximately 10 seconds. Romberg'ssign absent?Reflexes:2/4triceps, 2/4biceps, 2/4brachioradialis, 2/4knee jerk, 0/4ankle jerk andsymmetric, toes are Down going (negative Babinski). No clonus of ankles.?Coordination:Finger-to- nose-finger and pbhu-dc-atoi intact bilaterally. No ataxia ofarms. No limb dysmetria of arms and legs. or trunk. CHANDNI of pronation andsupination, finger and hand tapping intact. Toe tapping intact. There isno asterixis of the hands.No rigidity, cog wheeling, no bradykinesia.No tremorsNo extrapyramidal findings? Gait:Normal station and stride, but cautious. Able to tandem. Able to heel andtoe walk, but with difficulty. Good arm swing and body turn rises fromchair wellIMPRESSION/PLAN:Evaluation for Voltage Gated Potassium Channel Antibody: The patient wassent here for evaluation of a positive voltage gated potassium channelantibody that was found in a blood test done by Dr. Steven on 07/31/2017.She has had extensive GI workup that showed some delayed gastric emptyingand mildly slowed GI motility via smart pill procedure. The KC is mildlyelevated and having a neurological exam is a prudent thing to have done.The patient is neurologically intact as evidenced by her exam. Theabnormalities present (decreased pinprick sensation, vibratory sensation,and mild difficulty with balance) are all common with a diagnosis ofdiabetes. In review of her A1C levels, she has been diabetic for some timenow and her last A1C was 10.7. The diabetes is the likely cause of herneuropathic symptoms. Excluding these neuropathic symptoms, herneurological exam is stable. She should follow up with Dr. Steven regardingher nausea and GI related symptoms as she is neurologically intact. I didexplain this to the patient and she was understanding.This case was discussed in detail with Dr. Amaral.During our face to face clinical encounter we discussed my concernsneurologically in terms of diagnosis, impact on health and activities ofliving, and addressed questions. I tried to reassure the patient and alsoaddress questions. I explained to the patient to call if any questions,to review results, and I want to see them return for neurological followup as mychart as next steps of communication is agreed uponPatient verbalizes understanding and I have addressed concerns andquestions at this visit Patient has my contacts, educational material provided, and my chart signup. After visit summary discussed.I spent 60 minutes in the visit, with more than 50% of the zlvbxoobt-tj-mdrh time of the visit in counseling / coordination of care.ACTIVE PROBLEM LISTTuberculosis of Lung, Nodular, Confirmation UnspecifiedDiarrheaNausea AND VomitingNo orders found for this visit on 07/23/18.Ayana Jamison MSN, MANAGER FOOD BEVERAGE, PROGRAM REVIEW DIRECTOR-C1. This office note has been dictated and may contain minor typographicerrors that escaped review2. The nursing staff and medical assistants are a major part of YOURTREATMENT TEAM and will be handling your phone calls and inquiries, ifany. Unless explicitly told otherwise at the time of your office visit,your study results and ensuing treatment plans will be discussed duringyour follow-up appointment. If you do not have a follow-up appointment andwish to discuss any issues directly with me, please feel free to obtainone.3. It is my practice to not fill disability or any other insurance-relatedforms/documention. All of the office notes, study results, and otherpertinent documentation generated as part of your evaluation will beavailable to you and to your Primary Care Physician (PCP). Use of thismaterial to complete such forms will be at the discretion of yourPCP/referring physician antonio on 2018-07-23 CNOV Office Visit Normal 07-23-2018 Shauna and (NEN) --------BELACRYSTAL Tricia Arriola ([id number]) 1955 FDat e Time Provider Uurijjvpwf43/5/18 12:45 PM AYANA JAMISON (JOSEP) ANGELINA Fiore During your visit today, we recorded the following information about you: Pulse Respiration Blood (77186) pressure Weight 69/minute 18 /minute 104/46 129.3 kg Height 1.676 Favio Jamison APRN.CNP 07/23/2018 1:20 PM SignedCrystal banuelos is a 62 year old female. Patient presents with:New PatientPMH: DM, Fibromyalgia, HTN, Hyperlipi Willie is here as a new patient. Four years ago (2013) she began to haveincreased episodes of na usea. States that she went to GI and she tried reglan,phenergan, zofran, and Haldol. She states that since being placed on theHaldol, she does feel relief from the nausea. She did have gastric emptyingstu dy performed that showed delayed gastric emptying and she also had a smartpill study that showed some slowed gastric motility. She is positive forvoltage gated potassium channel antibodies. Dr. Clayton thrasher did attempt to have collin IGG as a result of the antibody and her gastroparesis, but the insur jaymie didnot approve.She does still experience constipation. She has a bowel movement every 3 days. Denies abdominal discomfort and cramping. If she does not take the Haldol, shewill have increased nause a. With the Haldol, it is manageable. She does statethat the Haldol causes her to be excessively fatigu ed. States that she isfeeling weaker as a result of increased sleeping while on this medication. Anibal short has gone to the ER numerous times as a result of her nausea.The patient does not elicit any other symptoms upon this visit and denies anyneurological condition that she is aware of.Per the negro ent's understanding, the purpose of the visit is to evaluate herfor the KC and determine if there are any neurological manifestationspresent.REFERRED BY: Dr. Awan reviewedKP data reviewed if doneCOMPASS 31 reviewed as 31 point autonomic review of systems questionsTHIS NOTE IS FOR AT FIRST FOR MY DOCUMENTATION TO PROVIDE CARE, HELP INSURANCECOMPANY AND COLLEAGUES TO HAVE NEUROLOGI ELLY CONTEXT OF MY , AND FOR MY PERSONALRECORDING TO FACILITATE FUTURE CARE BY HAVING A WRITTEN DOCUMENT MEMORY OF OURCONSULT TOGETHER . THANK YOU FOR UNDERSTANDING THIS OFFICE NOTE IS A PHYSICIANBASED DOC UMENT FOR COMMUNICATION AND CARE.She is brought in today by her alone.Medications Reviewedna loxegol (MOVANTIK) 25 mg tablet Take 25 mg by mouth once daily.haloperidol (HALDOL) 0.5 mg tablet Take 0.5 mg by mouth twice daily.methadone (DOLOPHINE) 5 mg tablet Take 10 mg by mouth once daily. At bedt imeondansetron orally disintegrating (ZOFRAN ODT) 8 mg disintegrating tablet Take1 tablet by mouth every 8 hours as needed.promethazine (PHENERGAN) 25 mg tablet Take 25 mg by mouth three times daily.p romethazine (PHENERGAN) 25 mg tablet Take 1 tablet by mouth every 8 hours asneeded (for nausea).morphi ne IR 15 mg tablet Take 15 mg by mouth every 4 hours as needed.lamoTRIgine (LAMICTAL) 100 mg tablet Peter e 100 mg by mouth twice daily.Levothyroxine 50 mcg cap Take by mouth once daily.sertraline (ZOLOFT) 10 0 mg tablet Take 100 mg by mouth once daily.allopurinol (ZYLOPRIM) 100 mg tablet Take 100 mg by mouth once daily.valsartan (DIOVAN) 80 mg tablet Take 80 mg by mouth once daily.aspirin, enteric coate d (ASPIRIN, ENTERIC COATED) 81 mg EC tablet Take 81 mg bymouth once daily.INSULIN DEGLUDEC (ALMA IBA FLEXTOUCH U-100 SUBCUTANEOUS) Inject 120 mgsubcutaneously once daily.montelukast (SINGULAIR ) 10 mg tablet Take 10 mg by mouth daily at bedtime.rOPINIRole 1 mg tablet Take 1 mg by mouth once alicia y.simvastatin 40 mg tablet Take 40 mg by mouth daily at bedtime.pregabalin (LYRICA) 75 mg capsule Take 150 mg by mouth twice daily.Omeprazole 40 mg capsule Take 40 mg by mouth once daily.HYDROCODONE BIT/A CETAMINOPHEN (VICODIN ORAL) Take by mouth.Allergies ReviewedBactrim [Sulfamethoxazole-trimethopr im] Hives High Allergy 07/31/2017 PastUpdates...Ciprofloxacin Rash Medium Allergy 06/10/2013 Past [place]da maria [place] carmen...Flexeril [Cyclobenzaprine] Rash Medium Allergy 06/10/2013 Past Updates...Adverse Reactions/ Drug IntolerancesToradol [Ketorolac] Other: See Comments High Side Effect/Intolerance 03/22/2006P ast Updates...Increase BPMetformin Other: See Comments Not Specified Side Effect/Intolerance 7 Past Updates...MigrainesPAST MEDICAL HISTORY:ACTIVE PROBLEM LISTTuberculosis of Lung, No dular, Confirmation UnspecifiedDiarrheaNausea AND VomitingPAST SURGICAL HISTORYProcedure Laterality Date- APPENDECTOMY 1973- COLONOSCOP W/ OR W/O [facility] SPEC 06/19/2013 Colonoscopy- COLONOSCOPY W/B X 05/27/07- EGD W/O OR W/BRUSH/WASH 06/19/2013 EGD- EGD W/O OR W/BRUSH/WASH 02/17/15 EGD- REMOVAL GALLBLAD BATSHEVA CholecystectomySocial History Marital status: Spouse name: Cheikh Years of education: N umber of children: 2Social History Main Topics Smoking status: Never Smoker Smokeless tobacco: Ne margie Used Alcohol use: No Drug use: Nofamily history includes Bone cancer in her father; Crohn's disea se in hermother and son; Diabetes in her maternal grandmother and mother.Autonomic check list: YES (Y) or NO (N)Dry mouth NDry eyes YChange in sweat NConstipation YAbdominal Bloating with xavier rtly after eating NFluctuation of diarrhea and constipation NUrination NChange in taste NChallenge swallowing foods NSkin changes of blue or redness to distal limbs NFainting /near syncope/sync ope NDizziness NLight headiness NChest pain NChallenge in breathing NTachycardia NTemperature Re gulation NBright lights N GENERAL:No weight loss, malaise or fevers., SEE HPIHEENT:Negative for freque nt or significant headaches, No changes in hearing orvision, no nose bleeds or other nasal proble msNECK:Negative for lumps, goiter, pain and significant neck swellingRESPIRATORY: Negativ e for cough, wheezing or shortness of breath.CARDIOVASCULAR: Negative for chest pain, leg swelling or palpitations.GASTROINTESTINAL: ConstipationGENITOURINARY: No history of dysuria, frequency or incont inenceMUSKULOSKELETAL: back painNEUROLOGIC:Positive for numbness or tingling of the feet: interm ittentSKIN:Negative for lesions, rash, and itching.PSYCHIATRIC: Negative for sleep disturbance, mood disorder and recentpsychosocial stressors.HEMATOLOGIC/LYMPHA TIC/IMMUNOLOGIC:Negative for prolonged bleeding, bruisingeasily or swollen nodes.ENDOCRINE: Negative fo r cold or heat intolerance, polyuria, polydipsia andgoiter.GLAUCOMA: No BP: (!) 104/46Pu lse: 69Resp: 18Weight: 129.3 kg (285 lb)Height: 167.6 cm (5' 6)General AppearancePatient appears we ll at the time of this appointment.Cardiovascular Examination:No carotid bruit notedHeart has regular rate and rhythmPulses equal bilaterallyNeurological Examination:Cognition:The pa ton is alert and oriented times threeLucid and organized in conversationAble to tell det shikha medical hxSpeech is Normal in fluency volume and clarityContent and Syntax: NormalComprehension: Normal, able to follow several step commandsRepetition: Normal, able to say no ifs ands, or butsNa blanca: Normal, able to name all objectsReading: NormalAbstract thinking: lie and mistake intact and b ird and planeWorld spells backwardsJudgement intact about fire in theaterImmediate recall 3 :3 and Short recall 3:3Able to add quarter, dime, nickel, and pennyNames 10 animals on farm. Clock drawi ng and writing is normalMMSE is 30/30No frontal release signsCranial Nerves:Pupils are equal and reactive to light.Pupils normal in sizeNormal fundoscopic examExtraocular movements are grossly intact Good saccades and pursuitsNo nystagmusHearing intactGood upgazeVisual davalos are full to confronta tion.Facial, motor and sensory exam is symmetricEqual v1,V2, L6Mwewhc is in midline. No tongue fascic ulation.Palate is upgoing bilaterallySCM and trapezius are full.Shoulder shrug intact?Motor Exam:?Upp er extremity motor exam is 5/5 in deltoid, 5/5 triceps 5/5biceps, 5/5 wristextension, and 5/5 hand director game. Finger extensor 5/5. Finger flexor 5/5.Pronation and Supination are full. Full interossei 5/5?Lo wer extremity is 5/5 in IP, 5/5 quadriceps, 5/5 hamstrings, 5/5 EHL, 5/5 TAand 5/5 gastrocnemius. Hip abductors and adductors are 5/5 Toe extensors andflexors are full bilaterally. Foot evertors a nd inversions are full bilaterallyTone and bulk is normal and preserved bilaterally of armsTone and bulk is normal and preserved bilaterally of legsHammer toes present bilaterally?The patient is w ithout significant pronator drift.?Sensation:Decreased pinprick sensation bilaterally of legs that imp roves with proximityto core. Normal toe position. Absent vibratory sensation bilateral feet,pre sent at shins for approximately 10 seconds. Romberg's sign absent?Reflexes:2/4triceps, 2/4biceps, 2/4brachioradialis, 2/4knee jerk, 0/4ankle jerk andsymmetric, toes are Down going (negativ e Babinski). No clonus of ankles.?Coordination:Finger-to- nose-finger and uqzo-eu-sueb intact bilatera lly. No ataxia of arms.No limb dysmetria of arms and legs. or trunk. CHANDNI of pronation andsupination, finger and hand tapping intact. Toe tapping intact. There is noasterixis of the hands.No rigidity, co g wheeling, no bradykinesia.No tremorsNo extrapyramidal findings? Gait:Normal station and stri de, but cautious. Able to tandem. Able to heel and toewalk, but with difficulty. Good arm swing a nd body turn rises from chair wellIMPRESSION/PLAN:Evaluation for Voltage Gated Potassium Channel Anti body: The patient was senthere for evaluation of a positive voltage gated potassium channel antibody t hatwas found in a blood test done by Dr. Steven on 07/31/2017. She has hadextensive GI workup that showed some delayed gastric emptying and mildly slowedGI motility via smart pill procedure. The VG SHIMA is mildly elevated and having aneurological exam is a prudent thing to have done. The patient isneu rologically intact as evidenced by her exam. The abnormalities present(decreased pinprick s ensation, vibratory sensation, and mild difficulty withbalance) are all common with a diagnosis of d iabetes. In review of her N7Nepumcg, she has been diabetic for some time now and her last A1C was 10. 7. Thediabetes is the likely cause of her neuropathic symptoms. Excluding theseneuropathic symptoms, h er neurological exam is stable. She should follow upwith Dr. Steven regarding her nausea and GI related symptoms as she isneurologically intact. I did explain this to the patient and she wasunderstan ding.This case was discussed in detail with Dr. Amaral.During our face to face clinical encounter we d iscussed my concernsneurologically in terms of diagnosis, impact on health and activities ofliving, and addressed questions. I tried to reassure the patient and alsoaddress questions. I explained to th e patient to call if any questions, toreview results, and I want to see them return for neurological follow up asmychart as next steps of communication is agreed uponPatient verbalizes understanding and I have addressed concerns and questions atthis visit Patient has my contacts, educational materi al provided, and my chart sign up.After visit summary discussed.I spent 60 minutes in the visit, with m ore than 50% of the total whoi-rv-suystcdw of the visit in counseling / coordination of care.ACTIVE PROBLEM LISTTuberculosis of Lung, Nodular, Confirmation UnspecifiedDiarrheaNausea AN D VomitingNo orders found for this visit on 07/23/18.Ayana Jamison MSN, MANAGER FOOD BEVERAGE, PROGRAM REVIEW DIRECTOR-C1. This office no te has been dictated and may contain minor typographic errorsthat escaped review2. The nursing staff a nd medical assistants are a major part of YOUR TREATMENTTEAM and will be handling your phone calls an d inquiries, if any. Unlessexplicitly told otherwise at the time of your office visit, your study res ultsand ensuing treatment plans will be discussed during your follow-upappointment. If you do not have a follow-up appointment and wish to discuss anyissues directly with me, please fee l free to obtain one.3. It is my practice to not fill disability or any other insurance-relatedforms /documention. All of the office notes, study results, and other pertinentdocumentation gener ated as part of your evaluation will be available to you andto your Primary Care Physician (PCP) . Use of this material to complete suchforms will be at the discretion of your PCP/referring physician Referring Provider: SELF [[id number]]Allergies As of Date: 07/23/2018 Noted Allergy ReactionBACTRIM (SUL FAMETHOXAZOLE-TRIMETH*07/31/2017 4 - HivesTORADOL (KETOROLAC) 03/22/2006 14 - Other: See Comments Com ments: Increase BPCIPROFLOXACIN 06/10/2013 2 - RashFLEXERIL (CYCLOBENZAPRINE) 06/10/2013 2 - RashMETFORMIN 06/28/2017 14 - Other: See Comments Comments: MigrainesDate Reviewed: 12/2017Reviewed by: Ayana Jamison - Fully AssessedReason for Visit: New Patient [172]Primary Vis it Diagnosis:Voltage-gated potassium channel (VGKC) antibody positive [R76.0] Other Visit Diagnosi s:Neuropathy (HCC) [G62.9]Prescriptions as of 07/23/2018 Sig: NALOXEGOL 25 MG TABLET Take 25 mg by mout h once alicia* HALOPERIDOL 0.5 MG TABLET Take 0.5 mg by mouth twice da* METHADONE 5 MG TABLET Take 1 0 mg by mouth once alicia* ONDANSETRON 8 MG DISINTEGRATI* Take 1 tablet by mouth every * PROMETHAZINE 2 5 MG TAB (PHENE* Take 25 mg by mouth three mikki* PROMETHAZINE 25 MG TABLET Take 1 tablet by mouth every * MORPHINE 15 MG IMMEDIATE RELE* Take 15 mg by mouth every 4 h* LAMOTRIGINE 100 MG TABLET Ta ke 100 mg by mouth twice da* LEVOTHYROXINE 50 MCG CAPSULE Take by mouth once daily. SERTRALINE 100 M G TABLET Take 100 mg by mouth once scotty* ALLOPURINOL 100 MG TABLET Take 100 mg by mouth once scotty* VALSAR ZHANG 80 MG TABLET Take 80 mg by mouth once alicia* ASPIRIN 81 MG TABLET,DELAYED * Take 81 mg by mouth once alicia* TRESIBA FLEXTOUCH U-100 SUBCU* Inject 120 mg subcutaneously * MONTELUKAST 10 MG TABLET Take 10 mg by mouth daily at * ROPINIROLE 1 MG TABLET Take 1 mg by mouth once daily. SIMV ASTATIN 40 MG TABLET Take 40 mg by mouth daily at * PREGABALIN 75 MG CAPSULE Take 150 mg by mouth twice da* OMEPRAZOLE 40 MG CAPSULE,SARA* Take 40 mg by mouth once alicia* VICODIN ORAL Take by mouth.M edication notes this encounter MONTELUKAST 10 MG TABLET >> Ayana Jamison APRN.OPERATING ROOM ASSISTANT 07/23/2018 12:17 PM >> AYANA JAMISON Wed Jul 23, 2018 12:17 PMProblem List As Of Date 07/23/2018 Noted Resolved TB LUNG NODULAR-UNSPEC [A15.0] INVALID FOR* DIARRHEA NOS [R19.7] INVALID FOR* Nausea AND vomiting [R1 1.2] INVALID FOR*Medications Discontinued During This Encounter aprepitant (EMEND) 40 mg capsule 30 c* 6 12/12/2017 07/23/2018 Route: ORAL Sig: Take 1 capsule by mouth once daily. Patient not taking: Reported on 12/18/2017 Disc: Discontinued by Patient exenatide microspheres (BYDUREON) 2 * 07/23/2018 Cla ss: Historical Med Route: SUBCUTANEOUS Sig: Inject subcutaneously. Disc: Discontinued by Patient immu you globlin, human,, IGG, (GAMMAG* 12 E* 1 08/20/2017 07/23/2018 Class: Print RX Simg/kg IV weekly f or 12 weeks, premedicate with 25 mg Benadryl po and Tylenol 500mg po, give 1 liter NS IV prior to each infusion. Patient not taking: Reported on 12/18/2017 Disc: Discontinued by Patient INSULIN ASPART (ROMELIA LOG FLEXPEN SUBC* 07/23/2018 Class: Historical Med Route: SUBCUTANEOUS Sig: Inject subcutaneously. Slidi ng scale Disc: Discontinued by Patient INSULIN ASPART (NOVOLOG PENFILL SUBC* 07/23/2018 Class: Histo rical Med Route: SUBCUTANEOUS Sig: Inject subcutaneously. Disc: Discontinued by Patient INSU KAMILA LISPRO (HUMALOG SUBCUTANEOUS) 07/23/2018 Class: Historical Med Route: SUBCUTANEOUS Sig: Inject sub cutaneously as directed. Disc: Discontinued by Patient metoclopramide HCl (REGLAN) 10 mg ta* 90 t* 3 1 07/23/2018 Route: ORAL Sig: Take 1 tablet by mouth three times daily. Patient not taking: R eported on 12/18/2017 Disc: Discontinued by Patient metoclopramide HCl (REGLAN) 5 mg tab* 120 * 6 07/23/2018 Route: ORAL Sig: Take 1 tablet by mouth four times daily. Patient not taking: R eported on 05/23/2018 Disc: Discontinued by Patient mirtazapine (REMERON) 15 mg tablet 30 t* 6 017 07/23/2018 Route: ORAL Sig: Take 1 tablet by mouth daily at bedtime. Patient not taking: Reported on 05/23/2018 Disc: Discontinued by Patient olmesartan (BENICAR) 40 mg tablet 07/23/2018 Class: Hist orical Med Route: ORAL Sig: Take 40 mg by mouth once daily. Disc: Discontinued by Patient onda nsetron (ZOFRAN) 4 mg tablet 30 t* 1 08/21/2016 07/23/2018 Route: ORAL Sig: Take 1 tablet by mouth every 8 hours as needed. Patient not taking: Reported on 12/18/2017 Disc: Discontinued by Patient sucr alfate (CARAFATE) 1 gram tablet 07/23/2018 Class: Historical Med Route: ORAL Sig: Take 1 g by mouth four times daily. Disc: Discontinued by Patient SUMATRIPTAN SUCCINATE ORAL 07/23/2018 Class: Historical Med Route: ORAL Sig: Take by mouth as needed. Disc: Discontinued by Patient trimethobenzamide (T IGAN) 300 mg cap* 90 c* 6 08/08/2017 07/23/2018 Route: ORAL Sig: Take 1 capsule by mouth three times daily. Patient not taking: Reported on 05/23/2018 Disc: Discontinued by PatientEncounter Number: [id number] Status:Closed by AYANA JAMISON on 07/23/18 progress on 2018-05 Protein mass HNO ID: [id number]: Carlyn arriola 05-23-2018 [facility] conc (Pump Station Operator) FulkService: (none)Author Adebayo Type: Nurse PractitionerType: ([id number]) Progress NotesFiled: 05/23/2018 12:48 PMNote Text:HPI Crystal Cramer is a 62 year old female who presents today for CC ofshortness breath and rib pain. Patient fell last night into counter andleft side ribs hit chest. PO2 88-91% and labored breathing, tachypnic.BP 128/76 Pulse 88 Temp 37.2 ?C (99 ?F) Resp 30 Wt 129.3 kg(285 lb) BMI 46.00 kg/m?ALLERGIESAllergen Reactions- Bactrim [Sulfametho* Hives- Toradol [Ketorolac] Other: See Comments Increase BP- Ciprofloxacin Rash- Flexeril [Cyclobenz* Rash- Metformin Other: See Comments MigrainesACTIVE PROBLEM LISTTuberculosis of Lung, Nodular, Confirmation UnspecifiedDiarrheaNausea AND VomitingFamily HistoryProblem Relation Age of Onset- Diabetes Mother- other (Crohn's disease) Mother- other (Crohn's disease) Son- other (Bone cancer) Father- Diabetes Maternal GrandmotherSocial History Marital status: Spouse name: Cheikh Years of education: Number of children: 2Social History Main Topics Smoking status: Never Smoker Smokeless tobacco: Never Used Alcohol use: No Drug use: NoPAST MEDICAL HISTORYDiagnosis Date- Coronary artery disease- Diarrhea- Diarrhea- PMH - PAST MEDICAL HISTORY OF high cholestrol- PMH - PAST MEDICAL HISTORY OF neck injury- Type II or unspecified type diabetes mellitus without mention ofcomplication, not stated as uncontrolled- Unspecified essential hypertensionPE:Decreased breath sounds on left lower lobes, with low oxygen level.ASSESSMENT/PLAN:1. Borderline low oxygen saturation level - ICD9: 790.91, ICD10: R79.81(primary diagnosis)2. SOB (shortness of breath) - ICD9: 786.05, ICD10: R06.02 Due to nature of patient's complaint and [facility], recommend patient be seen at nearest ED,refused Squad friend present will transport, report called to JOSEP Parra on 2018-05-23 CNCHRISTIE Office Visit Normal 05-23-2018 [place] and (UCWSTR) --------BELACRYSTAL Tricia Arriola ([id number]) 1955 FDat e Time Provider Dkslajhzrw85/5/18 12:15 PM [facility] During [place] el[place] your visit today, we recorde d the following information about you: Temperature Pulse Respiration Blood (000 00) pressure 99 degrees 88/minut e 30/minute 128/76 Weight 129.3 kgCarlyn Wu APRN.CNP 05/23/2018 12:48 PM SignedHPI Crystal Marissa Bela is a 62 year old female who presents today for CC ofshortness breath and rib pain. Patient fell last nigh t into counter and leftside ribs hit chest. PO2 88- 91% and labored breathing, tachypnic.BP 128/ 76 Pulse 88 Temp 37.2 ?C (99 ?F) Resp 30 Wt 129.3 kg (285lb) BMI 46.00 kg/m?ALLERGIESAllergen Reactions- Bactrim [Sulfametho* Hives- Toradol [Ketorolac] Other: See Comments Increase BP- Ciprof loxacin Rash- Flexeril [Cyclobenz* Rash- Metformin Other: See Comments MigrainesACTIVE PROBLEM LIST Tuberculosis of Lung, Nodular, Confirmation UnspecifiedDiarrheaNausea AND VomitingFamily HistoryProble m Relation Age of Onset- Diabetes Mother- other (Crohn's disease) Mother- other (Crohn's disease) Son- other (Bone cancer) Father- Diabetes Maternal GrandmotherSocial History Marital status: Spou se name: Cheikh Years of education: Number of children: 2Social History Main Topics Smoking status: Never Smoker Smokeless tobacco: Never Used Alcohol use: No Drug use: NoPAST MEDICAL HISTORYDiagno sis Date- Coronary artery disease- Diarrhea- Diarrhea- PMH - PAST MEDICAL HISTORY OF high cholestrol- PMH - PAST MEDICAL HISTORY OF neck injury- Type II or unspecified type diabetes mellitus without me ntion ofcomplication, not stated as uncontrolled- Unspecified essential hypertensionPE:Decreased jia ath sounds on left lower lobes, with low oxygen level.ASSESSMENT/PLAN:1. Borderline low oxygen satura tion level - ICD9: 790.91, ICD10: R79.81(primary diagnosis)2. SOB (shortness of breath) - ICD9 : 786.05, ICD10: R06.02 Due to nature of patient's complaint and lack of investigative tools availabl [facility], recommend patient be seen at nearest ED, refused Squad friendpresent will transport , report called to [place] [facility].Carlyn Wu, CNPReferring Provider: SELF [200]Allergies As of Date: 05/23/2018 Noted Allergy Reaction BACTRIM (SULFAMETHOXAZOLE-TRIMETH* 4 - HivesTORADOL (KETOROLAC) 03/22/2006 14 - Other: See Comments Comments: Increase BPCIPROFL OXACIN 06/10/2013 2 - RashFLEXERIL (CYCLOBENZAPRINE) 06/10/2013 2 - RashMETFORMIN 06/28/2017 14 - Other: See Comments Comments: MigrainesDate Reviewed: 05/23/2018Reviewed by: Carole NguyenTemple University Hospital) KENROY Henriquez - Fully AssessedReason for Visit: Fall [218] Cmt: pain in left side ribs, fell yesterday into [place] counter, trouble breathing todayPrimary Visit Diagnosis:Borderline low oxygen saturation level [R79.81] Other Visit Diagnosis:SOB (shortness of breath) [R06.02]Prescriptions as of 05/23/2018 Sig: NALOXEGOL 25 MG TABLET Take 25 mg by mouth once alicia* HALOPERIDOL 0.5 MG TABLET Ta ke 0.5 mg by mouth twice da* METHADONE [...] mouth once scotty* ALLOPURINOL 100 MG TABLET Ta ke 100 mg by mouth once scotty* VALSARTAN 80 MG TABLET Take 80 mg by mouth once alicia* ASPIRIN 81 MG TAB LET,DELAYED * Take 81 mg by mouth once alicia* TRESIBA FLEXTOUCH U-100 SUBCU* Inject 120 mg subcuta neously * HUMALOG SUBCUTANEOUS Inject subcutaneously as dir* [...] by mouth twice da* OMEPRAZOLE 40 MG CAPSULE,SARA* Take 40 mg by mouth once alicia* CODIN ORAL Take by mouth. METOCLOPRAMIDE 5 MG TABLET Take 1 tablet by mouth four t* Patient not ta filippo: Reported on 05/23/2018 PROMETHAZINE 25 MG TAB (PHENE* Take 25 mg by mouth three mikki* APREPITANT 40 MG CAPSULE Take 1 capsule by mouth once * Patient not taking: Reported on 12/18/2017 IMMUNE GLOB,GAMM A(IGG) 10 GRA* 400mg/kg IV weekly for 12 wee* Patient not taking: Reported on 12/18/2017 TRIMETHOBENZAMID E 300 MG CAPS* Take 1 capsule by mouth three* Patient not taking: Reported on 05/23/2018 MIRTAZAPINE 15 MG TABLET Take 1 tablet by mouth daily * Patient not taking: Reported on 05/23/2018 MORPHINE 15 MG IMM EDIATE RELE* Take 15 mg by mouth every 4 h* METOCLOPRAMIDE 10 MG TABLET Take 1 tablet by mouth three * Patient not taking: Reported on 12/18/2017 ONDANSETRON HCL 4 MG TABLET Take 1 tablet by mouth every * Patient not taking: Reported on 12/18/2017 SUCRALFATE 1 GRAM TABLET Take 1 g by mouth four times * OL MESARTAN 40 MG TABLET Take 40 mg by mouth once alicia* NOVOLOG PENFILL SUBCUTANEOUS Inject subcutan eously. NOVOLOG FLEXPEN SUBCUTANEOUS Inject subcutaneously. Slidi* EXENATIDE ER 2 MG/0.65 ML HAWKINS B* Inject subcutaneously.Problem List As Of Date 05/23/2018 Noted Resolved TB LUNG NODULAR-UNSPEC [A15. 0] INVALID FOR* DIARRHEA NOS [R19.7] INVALID FOR* Nausea AND vomiting [R11.2] INVALID FOR*Encounte r Number: [id number] Status:Closed by CARLYN WU CNP on 05/23/18 nino creatinine on 2017-12-31 Creatinine mass conc 1.2 0.7-1.4 mg/dL Normal 8 [facility] ([id number]) progress on 2017-12 Protein mass HNO ID: [id number]: Carole Kumar rmal 12-31-2017 [facility] Hieu Bashir CtService: (none)Author Clinic Type: (none)Type: Progress [place] NotesFiled: 12/31/2017 12:48 PMNote ([id number]) Text: Radiology Service Progress NotePATIENT NAME: Crystal OrtizsMRN: [id number] OF SERVICE: December 31, 2017TIME: 12:48 PMPATIENT IDENTITY VERIFICATION COMPLETED USING TWO (2) METHODS: Patientconfirmed name verbally and Date of .PATIENT GENDER DATA: Female. status: : NoBreastfeeding status: NO.PATIENT RELEVANT IMPLANT DATA REVIEWED: YesCONTRAST INDUCED NEPHROPATHY RISK FACTORS: Patient age > 60 yearsCREATININE:CreatinineDate Value Ref Range Ompons6404/28/2015 0.87 0.51 - 0.95 mg/dL Final04/27/2015 0.86 0.51 - 0.95 mg/dL Final04/26/2015 0.81 0.51 - 0.95 mg/dL Final P.O.C.T. RESULTS: POC done: Yes, See Lab Tab December 31, 2017RADIOLOGIST NOTIFIED?: NoALLERGIES: Reviewed and unchangedCONTRAST ALLERGY: NO.PERIPHERAL IV ACCESS: Ambulatory: IV type: A peripheral IV was startedin the Right forearm with a Angio cath: 22 gauge., Site assessment:Clean,Dry and Intact, Site disposition DiscontinuedRADIOLOGY DEPARTMENT: CT; Exam(s) Completed: Chest Abdomen PelvisSIGNED BY: Carole Bashir CtMay 2017 12:48 PM kartik screening w ramo on 2017-12-31 KARTIK SCREENING W * * *Final Report* * *DATE OF Norm al 12-31-2017 [place] RAMO EXAM: Dec 31 2017 9:51AM [facility] 0582 - [facility] SCREENING W RAMO / [place] ([id number]) REASON: Other disorders of nervous system * * * * Physician Interpretation * * * *RESULT: #[id number] - KARTIK SCREENING W TOMOBILATERAL DIGITAL SCREENING MAMMOGRAM TOMOSYNTHESIS WITH CAD: 12/31/2017HISTORY: Other Disorders Of Nervous System\ Screening Mammogram - patient reports NO breast symptoms /Patient has signed release for outside images\[facility].RESULT:TECHNIQUE: The study was acquired using full field digital technology and interpreted from soft copy.Digital Breast Tomosynthesis (DBT) images were obtained and used to assist in the interpretation of this examination.Current study was also evaluated with a Computer Aided Detection (CAD).No prior exams were available for comparison.The tissue of both breasts is predominantly fatty.No significant masses, calcifications, or other findings are seen in either breast.IMPRESSION: NEGATIVEThere is no mammographic evidence of malignancy.A 1 year screening mammogram is recommended. The exam was reviewed by a staff physician.Maral Kennedy M.D.jr,as/penrad:12/31/2017 14:00:45Imaging Technologist: Janneth BLACKMAN)(Sally), [place] [facility] Centerletter sent: Normal over 40Mammogram BI-RADS: 1 NegativeTranscriptionist: MaylinTranscribe Date/Time: Dec 31 2017 9:52ADictated by: FABBY KENNEDY MDThis examination was interpreted and the report reviewed and electronically signed by: MARAL HALLMAN MD on Dec 31 2017 2:00PM [id number] ct chest w ivcon on 2017-12-31 CT CHEST W * * *Final Report* * *DATE OF EXAM: Catrachita landry 12-31-2017 [facility] IVCON Dec 31 2017 12:22PM [facility] 0539 - CT [place] CHEST W IVCON / [id number] REASON: Other disorders of nervous system * * * * Physician Interpretation * * * * EXAMINATION: CHEST CT WITH CONTRASTIndication: 62-year-old female with history of nausea and 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 No consolidation. There is a 3 mm right upper lobe pulmonary nodule adjacent to the major fissure. Mild dependent reticular and linear densities in the lower lobes are most consistent with subsegmental atelectasis. No pleural effusion. No pulmonary edema or pneumothorax. Central airways are patent. No endobronchial lesion.Thoracic inlet, heart, and mediastinum: The imaged thyroid [...] of oral contrast is noted within the esophagus.Bones and soft tissues: Healed anterolateral right fifth rib fracture, image 92. No destructive lytic or blastic bone lesion. Multilevel endplate degenerative changes are present throughout the thoracic spine with associated vacuum disc.Upper abdomen: CT examination of the abdomen and pelvis, performed concurrently, is dictated separately.QB_NIMPRESSION:1. Indeterminate 3 mm right upper lobe pulmonary nodule adjacent to the major fissure. This nodular density may represent a lymph node given location. Incidental Finding: No follow-up imaging for this incidentally detected lung nodule is recommended. If there are risk factors for lung malignancy, a follow-up chest CT could be obtained in 12 months.2. Nonspecific fat attenuation density adjacent to the distal esophagus resulting in mild mass effect may represent herniated intra-abdominal fat or a lipomatous lesion.Agriculture Worker: ABRAM Transcribe Date/Time: Dec 31 2017 2:47PDictated by : VERONICA IBARRA MDThis examination was interpreted and the report reviewed and electronically signed by: VERONICA IBARRA MD on Dec 31 2017 3:07PM [id number] ct abd/pel w ivcon on 2017-12-31 CT ABD/PEL * * *Final Report* * *DATE OF EXAM: December12-31-2017 [facility] IVCON 2017 12:22PM [facility] 0530 - CT ABD/PEL W [facility] IVCON / [place] REASON: Other disorders of nervous (97333) system * * * * Physician Interpretation * * * * EXAMINATION: CT ABDOMEN AND PELVIS WITH IV CONTRASTCLINICAL HISTORY: 62-year-old patient with history of nausea and 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 Normal liver morphology. Suspect mild hepatic steatosis.Biliary: No bile duct dilation. Gallbladder is absent.Spleen: No mass. No splenomegaly.Pancreas: No mass or duct dilation.Adrenals: No mass.Kidneys: No mass or hydronephrosis.GI tract: No dilation or wall thickening. The distal esophagus appears to be displaced by adjacent fatty density, which may be herniating through the diaphragmatic hiatus.Lymph nodes: No abdominal or pelvic lymphadenopathy.Mesentery/Peritoneum: No ascites or mass.Retroperitoneum: No mass.Vasculature: The celiac axis and SMA are patent. The portal vein and branches, splenic vein, SMV, and hepatic veins are patent. Arterial atherosclerotic disease without aneurysm.Pelvis: No mass, ascites or fluid collection.Bones/Soft Tissues: Nonspecific soft tissue stranding of the skin/subcutaneous fat in the RIGHT mid ventral abdominal wall, which could be posttraumatic or represent the site of medication injection, depending on clinical correlation. No osseous destructive lesions.Lower thorax: A chest CT performed will be reported separately.IMPRESSION:Fatty density apparently causing mild mass effect over the distal esophagus may represent mesenteric peritoneal fat herniated through the diaphragmatic hiatus or a lipomatous lesion, although unclear if this may be contributing to the patient's symptoms. Agriculture Worker: ABRAM Transcribe Date/Time: Dec 31 2017 1:21PDictated by : PELON GARRETT MDThis examination was interpreted and the report reviewed and electronically signed by: PELON GARRETT MD on Dec 31 2017 1:32PM [id number] cnco on 2017-12-31 CNCO HNO ID: [id number]: Normal 12-17 [facility] Mammography CoordinatorService: [place] ([id number]) (none)Author Type: PhysicianType: LetterFiled: 01/01/2018 11:32 PMNote Text:December 31, 2017 PID: [id number] [place], [place] [address]Rwhs Ms. Cramer,We are pleased to inform you that the results of your recent breastimaging exam on 12/31/2017 are normal. Early detection of cancer is veryimportant. We also understand recommendations regarding breast cancerscreening are controversial. Please discuss with your primary careprovider which strategy is best for you and whether a mammogram is rightfor you.Your imaging studies and report will [facility] permanent [facility] and are available for yourcontinuing care.Thank you for allowing us to help in meeting your health care needs.Sincerely,Dr. HallmanInterprejania RadiologistWooster Specialty Center (Normal over 40) progress on 2017-12 Protein mass HNO ID: [id number]: Mukul pyane 12-18-2017 [place] conc ClineService: (none)Author Type: Clinic PhysicianType: Progress NotesFiled: [place] 12/18/2017 10:45 AMNote Text:FOLLOW UP ([id number]) VISITCHIEF COMPLAINTPatient presents with:Established Patient: nausea, constipationMs. Cramer is here today for follow-up of: nausea antibody positive lab.HPII saw this 62y/o in f/u for her nausea. We found a positive neuronal V_GK+ antibody. The patient has ongoing issues with muscle pain and weakness.This will have bad days and days that are not so severe. Her weight isstable. The Smart Pill showed only a mild delay in the colon suggestingthe antibody is driving the gi symptomsCurrent Outpatient Prescriptions:promethazine (PHENERGAN) 25 mg tablet Take 25 mg by mouth three timesdaily. Disp: Rfl:morphine IR 15 mg tablet Take 15 mg by mouth every 4 hours as needed.Disp: Rfl:Levothyroxine 50 mcg cap Take by mouth once daily. Disp: Rfl:allopurinol (ZYLOPRIM) 100 mg tablet Take 100 mg by mouth once daily.Disp: Rfl:valsartan (DIOVAN) 80 mg tablet Take 80 mg by mouth once daily. Disp:Rfl:aspirin, enteric coated (ASPIRIN, ENTERIC COATED) 81 mg EC tablet Take 81mg by mouth once daily. Disp: Rfl:INSULIN DEGLUDEC (TRESIBA FLEXTOUCH U-100 SUBCUTANEOUS) Inject 120 mgsubcutaneously once daily. Disp: Rfl:INSULIN LISPRO (HUMALOG SUBCUTANEOUS) Inject subcutaneously as directed.Disp: Rfl:rOPINIRole 1 mg tablet Take 1 mg by mouth once daily. Disp: Rfl:simvastatin 40 mg tablet Take 40 mg by mouth daily at bedtime. Disp: Rfl:pregabalin (LYRICA) 75 mg capsule Take 150 mg by mouth twice daily. Disp:Rfl:Omeprazole 40 mg capsule Take 40 mg by mouth once daily. Disp: Rfl:HYDROCODONE BIT/ACETAMINOPHEN (VICODIN ORAL) Take by mouth. Disp: Rfl:aprepitant (EMEND) 40 mg capsule Take 1 capsule by mouth once daily.(Patient not taking: Reported on 12/18/2017) Disp: 30 capsule Rfl: 6immune globlin, human,, IGG, (GAMMAGARD S/D) 10 gram injection 400mg/kg IVweekly for 12 weeks, premedicate with 25 mg Benadryl po and Tylenol 500mgpo, give 1 liter NS IV prior to each infusion. (Patient not taking:Reported on 12/18/2017) Disp: 12 Each Rfl: 1trimethobenzamide (TIGAN) 300 mg capsule Take 1 capsule by mouth threetimes daily. Disp: 90 capsule Rfl: 6mirtazapine (REMERON) 15 mg tablet Take 1 tablet by mouth daily atbedtime. Disp: 30 tablet Rfl: 6lamoTRIgine (LAMICTAL) 100 mg tablet Take 100 mg by mouth twice daily.Disp: Rfl:sertraline (ZOLOFT) 100 mg tablet Take 100 mg by mouth once daily. Disp:Rfl:SUMATRIPTAN SUCCINATE ORAL Take by mouth as needed. Disp: Rfl:metoclopramide HCl (REGLAN) 10 mg tablet Take 1 tablet by mouth threetimes daily. (Patient not taking: Reported on 12/18/2017) Disp: 90 tablet Rfl: 3ondansetron (ZOFRAN) 4 mg tablet Take 1 tablet by mouth every 8 hours asneeded. (Patient not taking: Reported on 12/18/2017) Disp: 30 tablet Rfl: 1montelukast (SINGULAIR) 10 mg tablet Take 10 mg by mouth daily at bedtime.Disp: Rfl:metoclopramide HCl (REGLAN) 5 mg tablet Take 5 mg by mouth four timesdaily. Disp: Rfl:sucralfate (CARAFATE) 1 gram tablet Take 1 g by mouth four times daily.Disp: Rfl:olmesartan (BENICAR) 40 mg tablet Take 40 mg by mouth once daily. Disp:Rfl:INSULIN ASPART (NOVOLOG PENFILL SUBCUTANEOUS) Inject subcutaneously.Disp: Rfl:INSULIN ASPART (NOVOLOG FLEXPEN SUBCUTANEOUS) Inject subcutaneously.Sliding scale Disp: Rfl:exenatide microspheres (BYDUREON) 2 mg/0.65 mL pnij Injectsubcutaneously. Disp: Rfl:No current facility-administered medications for this visit.ALLERGIESAllergen Reactions- Bactrim [Sulfametho* Hives- Toradol [Ketorolac] Other: See Comments Increase BP- Ciprofloxacin Rash- Flexeril [Cyclobenz* Rash- Metformin Other: See Comments MigrainesSocial History Marital status: Spouse name: Cheikh Years of education: Number of children: 2Social History Main Topics Smoking status: Never Smoker Smokeless tobacco: Never Used Alcohol use: No Drug use: NoMedical History:No changes since last visit.REVIEW OF SYSTEMS:GENERAL: weight stable, no fevers.CARDIOVASCULAR: No chest pain, no edemaRESPIRATORY: No dyspneaGU: negativeGYN: negativeThe remainder of the review of systems are negative.Reviewed with patient during visit today.PHYSICAL EXAMINATION:BP 139/69 Pulse 79 Temp (Src) 98.3 (Oral) Ht 5' 6 (1.68m) Wt 266lb 6 oz (120.8kg) SpO2 94% BMI 43.01 kg/(m2).GENERAL APPEARANCE: Well developed and well nourished.SKIN: Skin color, texture, turgor normal. No rashes or lesions.EYES: Conjunctiva normal without icterus.OROPHARYNX: lips, mucosa, and tongue normal, teeth and gums normalNECK: Supple, full range of motion, no lymphadenopathy, normal thyroid, nocarotid bruits and no JVDLUNGS: Normal breath sounds, Clear to auscultation, No wheezes, Nocrackles.HEART:Normal PMI, Regular rate and rhythm, Normal heart sounds, S1 and S2and No murmurs.NEURO: Alert and oriented in no acute distress.ABDOMEN: Normal bowel sounds, abdomen flat with no distention, Soft,non-tender, no hepatomegaly. no palpable masses, no abdominal bruits, norebound and no rigidity.EXTREMITIES:Extremities normal, No deformities, No skin discoloration, Noedema .AssessmentEncounter Diagnosis ICD-10-CM1. 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CREATININE BLD KARTIK SCREENING CT ABD/PEL W IVCON CT CHEST W IVCONMukul Steven 12/18/2017 cnov on 2017-12-18 CNOV Office Visit Normal 12-18-2017 [place] and (GASTMN) --------CRYSTAL CRAMER ([id number]) 1955 FDat e Time Provider Department12/18/17 10:10 AM MUKUL STEVEN During Clev eland your visit today, we recorde d the following information about you: Temperature Pulse Blood pressure (80283) Weight 98.3 degrees 79/minut e 139/69 120.8 kg Height 1.676 Lyndon Steven DO 12/18/2017 10:45 AM SignedFOLLOW UP VISITCHIEF Addison OMPLAINTPatient presents with:Established Patient: nausea, constipationMs. Bela is here today for foll ow-up of: nausea antibody positive lab.HPII saw this 62y/o in f/u for her nausea. We found a positive neuronal V_G K+antibody. The patient has ongoing issues with muscle pain and weakness. Thiswill have bad days and days that are not so severe. Her weight is stable. TheSmart Pill showed only a mild sara y in the colon suggesting the antibody isdriving the gi symptomsCurrent Outpatient Prescriptions:pro methazine (PHENERGAN) 25 mg tablet Take 25 mg by mouth three times daily.Disp: Rfl:morphine IR 15 mg tablet Take 15 mg by mouth every 4 hours as needed. Disp:Rfl:Levothyroxine 50 mc g cap Take by mouth once daily. Disp: Rfl:allopurinol (ZYLOPRIM) 100 mg tablet Take 100 mg by mouth once daily. Disp:Rfl:valsartan (DIOVAN) 80 mg tablet Take 80 mg by mouth once daily. Disp: Rfl:aspiri n, enteric coated (ASPIRIN, ENTERIC COATED) 81 mg EC tablet Take 81 mg bymouth once daily. Disp: Rf l:INSULIN DEGLUDEC (TRESIBA FLEXTOUCH U-100 SUBCUTANEOUS) Inject 120 mgsubcutaneously once daily. Disp: Rfl:INSULIN LISPRO (HUMALOG SUBCUTANEOUS) Inject subcutaneously as directed. Disp: Rfl:rOPINIRo le 1 mg tablet Take 1 mg by mouth once daily. Disp: Rfl:simvastatin 40 mg tablet Take 40 mg by mouth d aily at bedtime. Disp: Rfl:pregabalin (LYRICA) 75 mg capsule Take 150 mg by mouth twice daily. Disp: Rfl:Omeprazole 40 mg capsule Take 40 mg by mouth once daily. Disp: Rfl:HYDROCODONE BIT/ACETAMIN OPHEN (VICODIN ORAL) Take by mouth. Disp: Rfl:aprepitant (EMEND) 40 mg capsule Take 1 capsule by mo uth once daily. (Patientnot taking: Reported on 12/18/2017) Disp: 30 capsule Rfl: 6immune globlin, human, , IGG, (GAMMAGARD S/D) 10 gram injection 400mg/kg IVweekly for 12 weeks, premedicate with 25 mg Benad ryl po and Tylenol 500mg po,give 1 liter NS IV prior to each infusion. (Patient not taking: Reporte d on12/18/2017) Disp: 12 Each Rfl: 1trimethobenzamide (TIGAN) 300 mg capsule Take 1 capsule by mouth thre e timesdaily. Disp: 90 capsule Rfl: 6mirtazapine (REMERON) 15 mg tablet Take 1 tablet by mouth daily at bedtime.Disp: 30 tablet Rfl: 6lamoTRIgine (LAMICTAL) 100 mg tablet Take 100 mg by mouth twice d aily. Disp:Rfl:sertraline (ZOLOFT) 100 mg tablet Take 100 mg by mouth once daily. Disp: Rfl:SUMATRIPTAN SUCCINATE ORAL Take by mouth as needed. Disp: Rfl:metoclopramide HCl (REGLAN) 10 mg tablet Take 1 tablet by mouth three timesdaily. (Patient not taking: Reported on 12/18/2017) Disp: 90 tablet Rf l: 3ondansetron (ZOFRAN) 4 mg tablet Take 1 tablet by mouth every 8 hours asneeded. (Patient not takin g: Reported on 12/18/2017) Disp: 30 tablet Rfl: 1montelukast (SINGULAIR) 10 mg tablet Take 10 mg by mout h daily at bedtime.Disp: Rfl:metoclopramide HCl (REGLAN) 5 mg tablet Take 5 mg by mouth four times scotty ly.Disp: Rfl:sucralfate (CARAFATE) 1 gram tablet Take 1 g by mouth four times daily. Disp:Rfl:olmesa rtan (BENICAR) 40 mg tablet Take 40 mg by mouth once daily. Disp: Rfl:INSULIN ASPART (NOVOLOG PENFILL SUBCUTANEOUS) Inject subcutaneously. Disp:Rfl:INSULIN ASPART (NOVOLOG FLEXPEN SUBCUTANEOU S) Inject subcutaneously. Slidingscale Disp: Rfl:exenatide microspheres (BYDUREON) 2 mg/0.65 mL pnij Inject subcutaneously.Disp: Rfl:No current facility-administered medications for this visit.A LLERGIESAllergen Reactions- Bactrim [Sulfametho* Hives- Toradol [Ketorolac] Other: See Comme nts Increase BP- Ciprofloxacin Rash- Flexeril [Cyclobenz* Rash- Metformin Other: See Comments Migraine sSocial History Marital status: Spouse name: Cheikh Years of education: Number of childre n: 2Social History Main Topics Smoking status: Never Smoker Smokeless tobacco: Never Used Alcohol use: No Drug use: NoMedical History:No changes since last visit.REVIEW OF SYSTEMS:GENERAL: weight stab le, no fevers.CARDIOVASCULAR: No chest pain, no edemaRESPIRATORY: No dyspneaGU: negativeGYN: nega tiveThe remainder of the review of systems are negative.Reviewed with patient during visit today.P HYSICAL EXAMINATION:BP 139/69 Pulse 79 Temp (Src) 98.3 (Oral) Ht 5' 6 (1.68m) Wt 266 lb 6oz ( 120.8kg) SpO2 94% BMI 43.01 kg/(m2).GENERAL APPEARANCE: Well developed and well nourished.SKIN: Ski n color, texture, turgor normal. No rashes or lesions.EYES: Conjunctiva normal without icterus.OROPH ARYNX: lips, mucosa, and tongue normal, teeth and gums normalNECK: Supple, full range of motion, no lym phadenopathy, normal thyroid, nocarotid bruits and no JVDLUNGS: Normal breath sounds, Clear to ausc ultation, No wheezes, No crackles.HEART:Normal PMI, Regular rate and rhythm, Normal heart sounds, S1 and S2 andNo murmurs.NEURO: Alert and oriented in no acute distress.ABDOMEN: Normal bow el sounds, abdomen flat with no distention, Soft,non-tender, no hepatomegaly. no palpable masses, no abdominal bruits, noreb ound and no rigidity.EXTREMITIES:Extremi ties normal, No deformities, No skin discoloration, No edema.AssessmentEncounter Di agnosis ICD-10-CM1. 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 [address]ATIN[address] K[address] SCRE[address] CT ABD/PEL W IVCON CT CHEST W IVCONMukul Steven 12/18/2017Referring Provider: YOU PARKS [[id number]]Allergies As of Date: 12/18/2017 Noted Allergy ReactionBACTRIM (SUL FAMETHOXAZOLE-TRIMETH*07/31/2017 4 - HivesTORADOL (KETOROLAC) 03/22/2006 14 - Other: See Comments Com ments: Increase BPCIPROFLOXACIN 06/10/2013 2 - RashFLEXERIL (CYCLOBENZAPRINE) 06/10/2013 2 - RashMETFORMIN 06/28/2017 14 - Other: See Comments Comments: MigrainesDate Reviewed: 09/2017Reviewed by: Mukul Steven - Fully AssessedReason for Visit: Established Patient [175] Cm t: nausea, constipationPrimary Visit Diagnosis: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 Discontinue saline lock post exam. If Pt. has a central line or IVAD, may ac cess for administration according to line specific nursing protocol. Once exam is complete flush line and de-access according to line specific nursing protocol in the CT contrast administration [facility].Disp: 1 EachRfl: 0 enteric contrast (radiology procedure)For CT CHESTABD/PEL W IVCON Rout ine order Administer, As Directed One Time Only, via Oral, Rectal, both Oral and Rectal, Enteric Tub e, Stoma or Indwelling Catheter, Enteric Contrast as designated per enteric contrast guidelinesD isp: 1 EachRfl: 0Prescriptions as of 12/18/2017 Sig: PROMETHAZINE 25 MG TAB (PHENE* Take 25 mg by mo uth three mikki* MORPHINE 15 MG IMMEDIATE RELE* Take 15 mg by mouth every 4 h* LEVOTHYROXINE 50 MCG CAPS ULE Take by mouth once daily. ALLOPURINOL 100 MG TABLET Take 100 mg by mouth once scotty* VALSARTAN 80 MG TABLET Take 80 mg by mouth once alicia* ASPIRIN 81 MG TABLET,DELAYED * Take 81 mg by mouth once scotty l* TRESIBA FLEXTOUCH U-100 SUBCU* Inject 120 mg subcutaneously * HUMALOG SUBCUTANEOUS Inject subcutan eously as dir* ROPINIROLE 1 MG TABLET Take 1 mg by mouth once daily. SIMVASTATIN 40 MG TABLET Peter e 40 mg by mouth daily at * PREGABALIN 75 MG CAPSULE Take 150 mg by mouth twice da* OMEPRAZOLE 40 MG C APSULE,SARA* Take 40 mg by mouth once alicia* VICODIN ORAL Take by mouth. IV CONTRAST (RADIOLOGY PROCED* CT Chest ABD/PEL-Inject, intr* ENTERIC CONTRAST (RADIOLOGY P* For CT CHESTABD/PEL W IVCON R* APRE PITANT 40 MG CAPSULE Take 1 capsule by mouth once * Patient not taking: Reported on 12/18/2017 IMMUNE GLOB,GAMMA(IGG) 10 GRA* 400mg/kg IV weekly for 12 wee* Patient not taking: Reported on 12/18/2017 TRIMETH OBENZAMIDE 300 MG CAPS* Take 1 capsule by mouth three* MIRTAZAPINE 15 MG TABLET Take 1 tablet by mout h daily * LAMOTRIGINE 100 MG TABLET Take 100 mg by mouth twice da* SERTRALINE 100 MG TABLET Peter e 100 mg by mouth once scotty* SUMATRIPTAN SUCCINATE ORAL Take by mouth as needed. METOCLOPRAMIDE 10 MG TABLET Take 1 tablet by mouth three * Patient not taking: Reported on 12/18/2017 ONDANSETRON HCL 4 M G TABLET Take 1 tablet by mouth every * Patient not taking: Reported on 12/18/2017 MONTELUKAST 10 MG T ABLET Take 10 mg by mouth daily at * METOCLOPRAMIDE 5 MG TABLET Take 5 mg by mouth four times* SUCRALF ATE 1 GRAM TABLET Take 1 g by mouth four times * OLMESARTAN 40 MG TABLET Take 40 mg by mouth once scotty l* NOVOLOG PENFILL SUBCUTANEOUS Inject subcutaneously. NOVOLOG FLEXPEN SUBCUTANEOUS Inject subcutan eously. Slidi* EXENATIDE ER 2 MG/0.65 ML SUB* Inject subcutaneously.Problem List As Of Date 12/18/2017 Noted Resolved TB LUNG NODULAR-UNSPEC [A15.0] INVALID FOR* DIARRHEA NOS [R 19.7] INVALID FOR* Nausea AND vomiting [R11.2] INVALID FOR*Prescriptions ordered this encounter Disp Refills Start End [...] access for administration according to line specific n ursing protocol. Once exam is complete flush line and de-access according to line specific nursing pro tocol in the CT contrast administration guidelines link. ENTERIC CONTRAST (RADIOLOGY PROCEDUR* 1 Ea* 0 12/18/2017 12/19/2017 Class: In Office Sig: For CT CHESTABD/PEL W IVCON Routine order Administer, As Directed One Time Only, via Oral, Rectal, both Oral and Rectal, Enteric Tube, Stoma or Indwelling Ca theter, Enteric Contrast as designated per enteric contrast guidelinesEncounter Number: [id number] Status:Closed by MUKUL STEVEN DO on 12/18/17 progress on 2017-10 Protein mass HNO ID: [id number]: Cele (Rn) Normal 10-22-2017 [place] leno Vargas, RNService: (none)Author Type: Clinic Registered NurseType: Progress [place] NotesFiled: 10/22/2017 2:24 PMNote ([id number]) Text:SmartPill Test Report - [id number] Test start date: 10/11/2017 9:48 AM Interpretation date: 10/22/2017 Ordering physician: Radha Aaron Information Name: Crystal Cramer ID: [id number] date: 1955 Height ft. in.: 5' 6 Gender: Female Weight lbs.: 240Test Statistics Transit Times (h:min) GET: 1:15 ? [...] Contractions/min: 1.93 Mean amplitude: 13.18 Motility index: 37.94Interpretations and Recommendations InterpretationsDid not observe pH baseline below 4 in the stomach.No evidence of additional meal 6 hours into test.Observed a gradually increasing pH profile.Observed normal gastric emptying.Observed normal SBTT.Observed delayed CTT. Clinical Management Plansdelayed colonic transit otherwise normal study. No evidence ofgastroparesisSignature _Dr Steven Date _10/22/17 hosp on 2017-10-22 HOSP Patient Update Normal 10-22-2017 [place] (GASTMN) --------CRYSTAL CRAMER ([id number]) 1955 [facility] e Time Provider Department10/22/17 CELE VARGAS (RN) GASTMN During your [facility] visit today, we recorded the following information about you:Cele Vargas RN, RN 10/22/2017 2:24 PM ([id number]) [facility]igned[facility] Test Report - [id number] Test start date: 10/11/2017 9:48 AM Interpretation date: 8 Ordering physician: Radha Aaron Information Name: Crystal Cramer ID: [id number] [facility] h date: 1955 Height ft. in.: 5' 6ANDquot; Gender: Female Weight lbs.: 240Test Statistics Transit T imes (h:min) GET: 1:15 ? 4 h suggests delayed gastric emptying. SBTT: 3:26 Normal: 2.5 - 6 h CTT: 71:39 ANDgt; 59 h indicates delayed colonic transit. SLBTT: 75:06 ANDgt; 64 h indicates delayed combined b owel transit. WGTT: 76:21 Normal: ANDlt; 73 h Gastric pH High: 6.1 Low: 2.1 Range annotations (h:min ) Start: 0:52, End: 1:22 30 min. prior Contractions/min: 2.6 Mean amplitude: 15.18 Motility in dex: 72.2 Start: 1:22, End: 1:52 30 min. post Contractions/min: 1.93 Mean amplitude: 13.18 Motility in dex: 37.94Interpretations and Recommendations InterpretationsDid not observe pH baseline below 4 in the stomach.No evidence of additional meal 6 hours into test.Observed a gradually increasing pH prof ile.Observed normal gastric emptying.Observed normal SBTT.Observed delayed CTT. Clinical Management Wenceslao nsdelayed colonic transit otherwise normal study. No evidence of gastroparesisSignature _Dr Addison line Date _10/22/17 Allergies As of Date: 10/22/2017 Noted Allergy ReactionBACTRI M (SULFAMETHOXAZOLE-TRIMETH*07/31/2017 4 - HivesCIPROFLOXACIN 06/10/2013 16 - UnknownFLEXERIL (CYCLOB ENZAPRINE) 06/10/2013 16 - UnknownMETFORMIN 06/28/2017 14 - Other: See Comments Comments: Migraines TORADOL (KETOROLAC) 03/22/2006band aids [Other] 05/27/2007Date Reviewed: 07/31/2017Reviewed by: Taras Banuelos Steven - Fully AssessedReason for Visit: SmartPill procedure results [Other]Prescriptions as of 0 10/22/2017 Sig: PROMETHAZINE 25 MG TABLET Take 1 tablet by mouth every * IMMUNE GLOB,GAMMA(IGG) 10 GR A* 400mg/kg IV weekly for 12 wee* TRIMETHOBENZAMIDE 300 MG CAPS* Take 1 capsule by mouth three* MIRT AZAPINE 15 MG TABLET Take 1 tablet by mouth daily * MORPHINE 15 MG IMMEDIATE RELE* Take 15 mg b y mouth every 4 h* LAMOTRIGINE 100 MG TABLET Take 100 mg by mouth twice da* LEVOTHYROXINE 50 MCG CAP ENDER Take by mouth once daily. SERTRALINE 100 MG TABLET Take 100 mg by mouth once scotty* ALLOPURINOL 100 MG TABLET Take 100 mg by mouth once scotty* VALSARTAN 80 MG TABLET Take 80 mg by mouth once alicia* PIRIN 81 MG TABLET,DELAYED * Take 81 mg by mouth once alicia* TRESIBA FLEXTOUCH U-100 SUBCU* Injec t 120 mg subcutaneously * HUMALOG SUBCUTANEOUS Inject subcutaneously as dir* SUMATRIPTAN SUCCINATE O RAL Take by mouth as needed. METOCLOPRAMIDE 10 MG TABLET Take 1 tablet by mouth three * ONDANSETRON HC L 4 MG TABLET Take 1 tablet by mouth every * MONTELUKAST 10 MG TABLET Take 10 mg by mouth daily at * ME TOCLOPRAMIDE 5 MG TABLET Take 5 mg by mouth four times* SUCRALFATE 1 GRAM TABLET Take 1 g by mouth fou r times * OLMESARTAN 40 MG TABLET Take 40 mg by mouth once alicia* NOVOLOG PENFILL SUBCUTANEOUS Inject subcutaneously. NOVOLOG FLEXPEN SUBCUTANEOUS Inject subcutaneously. Slidi* EXENATIDE ER 2 MG/0.65 ML HAWKINS B* Inject subcutaneously. ROPINIROLE 1 MG TABLET Take 1 mg by mouth once daily. SIMVASTATIN 40 MG TAB LET Take 40 mg by mouth daily at * PREGABALIN 75 MG CAPSULE Take 150 mg by mouth twice da* OMEPRAZOLE 4 0 MG CAPSULE,SARA* Take 40 mg by mouth once alicia* VICODIN ORAL Take by mouth.Problem List As Of Eyad e 10/22/2017 Noted Resolved TB LUNG NODULAR-UNSPEC [A15.0] INVALID FOR* DIARRHEA NOS [R19.7] INVALID FOR* Nausea AND vomiting [R11.2] INVALID FOR*Follow-up and Disposition History RecordedEncounter Bushra mber: [id number] Status:Closed by CELE VARGAS on 10/22/17 cnpn on 2017-10-22 [facility] Normal 10-22-2017 [place] (JOSE CARLOS) --------CRYSTAL CRAMER ([id number]) 1955 FDat e Time Provider Department10/22/17 MUKUL STEVENAL During your visit Juwan monzon today, we recorded the aldo gooden information about you:Manuel Meza, RN, RN 10/22/2017 5:10 PM ([id number]) SignedPatient is calling Dr. Steven's office to find out plan of care now that SmartPill results are in. She is still awaiting IV IG approval but so far has beendenied. She is not sure if she should call and schedule an appt to disc uss allof this?Mukul Steven, DO 10/22/2017 5:13 PM SignedThe next step would be to treat her with I VIG if it's possible. If not weshould have her follow up with general GI for treatment of the slow co sherlyn onsmart pill. The gastric emptying was actually normal.Manuel Meza RN, RN 10/23/2017 11:55 AM Sig nedCalled patient and relayed Dr. Steven's message. Provided education on the smartpill results and re inforced ed around autoimmune antibody and treatment.Patient is going to start with an OTC laxative o n a daily basis to see if shecan get her colon moving more. She currently uses miralax on a prn basis andwill start using daily. Explained that appeal letter was faxed to [facility] regarding he r IVIG therapy. Offered to have her schedule appt withneurology and explained consult was in the system. She states she wants to tryOTC Miralax first to see if that helps her symptoms.AMBULATORY NEGRO ENT EDUCATION NOTETOPIC: Smart pill and autoimmune antibodyREADINESS TO LEARNCOGNITIVE ABILITY: Aler t and orientedMOTIVATION TO LEARN: InterestedFAMILY SUPPORT: Unable to assess - Family not presentI NSTRUCTION PROVIDED TO: PatientPATIENT LEARNS BEST BY: Multiple MethodsFACTORS AFFECTING GURU RNING: NonePHYSICAL LIMITATIONS AFFECTING LEARNING: NoneLEARNING RESPONSEDIAGNOSIS: Constipat ion and autoimmune antibody postiveMETHOD OF INSTRUCTION: Verbal instructionPATIENT / FAMILY RESPONSE: Verbalizes understanding of: Smart pill andautoimmune antibodyFOLLOW-UP PLAN: Negro ent instructed to call with any further issuesContact information given.SUPPLEMENTAL MATERIAL: NoneREFERRAL (RECOMMENDATION): NoneElectronically Signed By: Manuel Meza RN In Department: [facility]Cross[facility] Healthpradeep As of Date: 10/22/2017 Noted Allergy ReactionBACTRIM (SULFAMETHOX AZOLE-TRIMETH*07/31/2017 4 - HivesCIPROFLOXACIN 06/10/2013 16 - UnknownFLEXERIL (CYCLOBENZAP RINE) 06/10/2013 16 - UnknownMETFORMIN 06/28/2017 14 - Other: See Comments Comments: MigrainesTORADOL ( KETOROLAC) 03/22/2006band aids [Other] 05/27/2007Date Reviewed: 07/31/2017Reviewed by: Taras Steven - Fully AssessedReason for Visit: Care Coordination [3491] Cmt: Gastroparesis Clinic: Smart Pill results Patient Education [91]Reason For Visit History RecordedPrescriptions as of 10/22/2017 Sig: PROMETHAZINE 25 MG TABLET Take 1 tablet by mouth every * IMMUNE GLOB,GAMMA(IGG) 10 GR A* 400mg/kg IV weekly for 12 wee* TRIMETHOBENZAMIDE 300 MG CAPS* Take 1 capsule by mouth three* MIRT AZAPINE 15 MG TABLET Take 1 tablet by mouth daily * MORPHINE 15 MG IMMEDIATE RELE* Take 15 mg b y mouth every 4 h* LAMOTRIGINE 100 MG TABLET Take 100 mg by mouth twice da* LEVOTHYROXINE 50 MCG CAP ENDER Take by mouth once daily. SERTRALINE 100 MG TABLET Take 100 mg by mouth once scotty* ALLOPURINOL 100 MG TABLET Take 100 mg by mouth once scotty* VALSARTAN 80 MG TABLET Take 80 mg by mouth once alicia* PIRIN 81 MG TABLET,DELAYED * Take 81 mg by mouth once alicia* TRESIBA FLEXTOUCH U-100 SUBCU* Injec t 120 mg subcutaneously * HUMALOG SUBCUTANEOUS Inject subcutaneously as dir* SUMATRIPTAN SUCCINATE O RAL Take by mouth as needed. METOCLOPRAMIDE 10 MG TABLET Take 1 tablet by mouth three * ONDANSETRON HC L 4 MG TABLET Take 1 tablet by mouth every * MONTELUKAST 10 MG TABLET Take 10 mg by mouth daily at * ME TOCLOPRAMIDE 5 MG TABLET Take 5 mg by mouth four times* SUCRALFATE 1 GRAM TABLET Take 1 g by mouth fou r times * OLMESARTAN 40 MG TABLET Take 40 mg by mouth once alicia* NOVOLOG PENFILL SUBCUTANEOUS Inject subcutaneously. NOVOLOG FLEXPEN SUBCUTANEOUS Inject subcutaneously. Slidi* EXENATIDE ER 2 MG/0.65 ML HAWKINS B* Inject subcutaneously. ROPINIROLE 1 MG TABLET Take 1 mg by mouth once daily. SIMVASTATIN 40 MG TAB LET Take 40 mg by mouth daily at * PREGABALIN 75 MG CAPSULE Take 150 mg by mouth twice da* OMEPRAZOLE 4 0 MG CAPSULE,SARA* Take 40 mg by mouth once alicia* VICODIN ORAL Take by mouth.Problem List As Of Eyad e 10/22/2017 Noted Resolved TB LUNG NODULAR-UNSPEC [A15.0] INVALID FOR* DIARRHEA NOS [R19.7] INVALID FOR* Nausea AND vomiting [R11.2] INVALID FOR* Status:Closed by MANUEL MEZA on 8 progress on 2017-09 Protein mass conc HNO ID: [id number]: Normal 10-11-2017 [facility] Cele (Rn) Azael Vargas ([id number]) RNService: (none)Author Type: Registered NurseType: Progress NotesFiled: 10/11/2017 10:14 AMNote Text:Referring MD: ?Teodoro Aaron: ?gastroparesisDate of SmartPill Procedure: ?10/11/2017 ?SmartPill ingested withoutdifficulty at 10:00am. ?Discharge instructions completed and given topatient.Return of Equipment: ?Micah Vargas RN Capsule Endoscopy Nurse cnpn on 2017-10-08 CNPN Telephone Normal 10-08-2017 [place] (GASTMN) --------CRYSTAL CRAMER [facility] ([id number]) 1955 FDat e Time Provider Department10/08/17 MUKUL STEVEN GASTAL During your [place] visit today, we recorded the following information about you:Manuel Meza RN, RN 10/08/2017 4:16 PM ([id number] [phone]) SignedContacted [employer] [facility] [phone] (option 1 and then option 0) to obtain acopy of patient's denial letter for IVIG. They are to fax to the office today.Manuel Meza, RN, RN 10/08/2017 5:19 PM SignedReceived copy of deng arriola letter from [employer] 10/08/17 and [facility].Allergies As of Date: 10/08/2017 Noted Allergy Reacti onBACTRIM (SULFAMETHOXAZOLE-TRIMETH* 4 - HivesCIPROFLOXACIN 06/10/2013 16 - UnknownFLEXERIL (CYCLOBENZAPRINE) 06/10/2013 16 - UnknownMETFORMIN 06/28/2017 14 - Other: See Comments Comments: MigrainesTORADOL (KETOROLAC) 03/22/2006band aids [Other] 05/27/2007Date Reviewed: 07/31/2017Reviewed by: Mukul Steven - Fully AssessedReason for Visit: Care Coordination [0772] Cmt: Gastroparesis Clinic: Ivig denial letter r equestPrescriptions as of 10/08/2017 Sig: PROMETHAZINE 25 MG TABLET Take 1 tablet by mouth every * IMMU NE GLOB,GAMMA(IGG) 10 GRA* 400mg/kg IV weekly for 12 wee* TRIMETHOBENZAMIDE 300 MG CAP S* Take 1 capsule by mouth three* MIRTAZAPINE 15 MG TABLET Take 1 tablet by mouth daily * MORPHINE 15 MG IMMEDIATE RELE* Take 15 mg by mouth every 4 h* LAMOTRIGINE 100 MG TABLET Take 100 mg by mouth twice da* LEVOTHYROXINE 50 MCG CAPSULE Take by mouth once daily. SERTRALINE 100 MG TABLET Peter e 100 mg by mouth once scotty* ALLOPURINOL 100 MG TABLET Take 100 mg by mouth once scotty* VALSARTAN 80 MG TA BLET Take 80 mg by mouth once alicia* ASPIRIN 81 MG TABLET,DELAYED * Take 81 mg by mouth once alicia* TRESI BA FLEXTOUCH U-100 SUBCU* Inject 120 mg subcutaneously * HUMALOG SUBCUTANEOUS Inject subcutan eously as dir* SUMATRIPTAN SUCCINATE ORAL Take by mouth as needed. METOCLOPRAMIDE 10 MG TABLET Take 1 tablet by mouth three * ONDANSETRON HCL 4 MG TABLET Take 1 tablet by mouth every * MONTELUKAST 10 MG TABLET Take 10 mg by mouth daily at * METOCLOPRAMIDE 5 MG TABLET Take 5 mg by mouth four time s* SUCRALFATE 1 GRAM TABLET Take 1 g by mouth four times * OLMESARTAN 40 MG TABLET Take 40 mg by mout h once alicia* NOVOLOG PENFILL SUBCUTANEOUS Inject subcutaneously. NOVOLOG FLEXPEN SUBCUTANEOUS Inject subcutaneously. Slidi* EXENATIDE ER 2 MG/0.65 ML SUB* Inject subcutaneously. ROPINIROLE 1 MG TABLET Take 1 mg by mouth once daily. SIMVASTATIN 40 MG TABLET Take 40 mg by mouth daily at * PREGA BALIN 75 MG CAPSULE Take 150 mg by mouth twice da* OMEPRAZOLE 40 MG CAPSULE,SARA* Take 40 mg by mouth once alicia* VICODIN ORAL Take by mouth.Problem List As Of Date 10/08/2017 Noted Resolved TB LUNG NODULAR-UNSPEC [A15.0] INVALID FOR* DIARRHEA NOS [R19.7] INVALID FOR* Nausea AND vomiting [R1 1.2] INVALID FOR* Status:Closed by MANUEL MEZA on 10/08/17 cnpn on 2017-09-12 CNPN Telephone Normal 09-12-2017 [place] (GASTMN) --------CRYSTAL CRAMER ([id number]) 1955 [facility] Time Provider Department09/12/17 MUKUL STEVEN [facility] During your [place] visit today, we recorded the following information about you:Manuel Meza, RN, RN 09/12/2017 1:59 PM (00 000) SignedPatient calling hanny Price is not working to control her nausea and iscausing her to itch. She states the phenergan has helped in the past and wouldlike to request an order for it. Pharmacy is confirmed.Nicolas Godoy MD PhD 09/12/2017 9:49 PM SignedI do not see phenergan in her prior medications.script sent for 30 days, please discuss with Dr Steven after his returnthere is a drug interaction between reglan a nd phenergan. Please let her know.she can discuss with her pharmacist.Kana Rivera, RN 09/16/2017 2:07 PM SignedCalled and relayed medication education to patient. Explained she is no t to usephenergan if she is taking Reglan because there is an interaction. Patientstates she understand s.AMBULATORY PATIENT EDUCATION NOTETOPIC: Medication interactionREADINESS TO LEARNCOGNITIVE ABILITY: A lert and orientedMOTIVATION TO LEARN: InterestedFAMILY SUPPORT: Unable to assess - Family not presentI NSTRUCTION PROVIDED TO: PatientPATIENT LEARNS BEST BY: Multiple MethodsFACTORS AFFECTING GURU RNING: NonePHYSICAL LIMITATIONS AFFECTING LEARNING: noneLEARNING RESPONSEDIAGNOSIS: gastropar esisMETHOD OF INSTRUCTION: Verbal instructionPATIENT / FAMILY RESPONSE: Verbalizes understanding of: medication interactionbetween reglan and phenergan and not to take togetherFOLLOW-UP PLAN: Negro ent instructed to call with any further issuesSUPPLEMENTAL MATERIAL: NoneREFERRAL (RECOMMENDATION ): NoneElectronically Signed By: Manuel Meza RN In Department: GASTROENTEROLOGYAllergies As of Date: Noted Allergy ReactionBACTRIM (SULFAMETHOXAZOLE-TRIMETH* 4 - HivesCIPROFLOXACIN 06/10/2013 16 - UnknownFLEXERIL (CYCLOBENZAPRINE) 06/10/2013 16 - UnknownMETFORMIN 06/28/2017 14 - Other: See Comments Comments: MigrainesTORADOL (KETOROLAC) 03/22/2006band aids [Other] 05/27/2007Date Reviewed: 07/31/2017Reviewed by: Mukul Steven - Fully AssessedReason for Visit: Care Coordination [3491] Cmt: Gastroparesis Clinic: anti nasuea mediatio n request Patient Education [91] Cmt: Phenergan/Reglan interactionReason For Visit History RecordedPr imary Visit Diagnosis:Nausea [R11.0]Order(s):promethazine (PHENERGAN) 25 mg tabletTake 1 tablet by mo uth every 8 hours as needed (for nausea).Disp: 90 tabletRfl: 0Prescriptions as of 018 Sig: PROMETHAZINE 25 MG TABLET Take 1 tablet by mouth every * IMMUNE GLOB,GAMMA(IGG) 10 GRA* 400m g/kg IV weekly for 12 wee* TRIMETHOBENZAMIDE 300 [...] mouth once scotty* ALLOPURINOL 100 MG TABLET Ta ke 100 mg by mouth once scotty* VALSARTAN 80 MG TABLET Take 80 mg by mouth once alicia* ASPIRIN 81 MG TAB LET,DELAYED * Take 81 mg by mouth once alicia* TRESIBA FLEXTOUCH U-100 SUBCU* Inject 120 mg subcuta neously * HUMALOG SUBCUTANEOUS Inject subcutaneously as dir* SUMATRIPTAN SUCCINATE ORAL Take by mouth as needed. METOCLOPRAMIDE 10 MG TABLET Take 1 tablet by mouth three * ONDANSETRON HCL 4 MG TABLET Take 1 tablet by mouth every * MONTELUKAST 10 MG TABLET Take 10 mg by mouth daily at * METOCLOPRAM MARVIN 5 MG TABLET Take 5 mg by mouth four times* SUCRALFATE 1 GRAM TABLET Take 1 g by mouth four times * OLMESARTAN 40 MG TABLET Take 40 mg by mouth once alicia* NOVOLOG PENFILL SUBCUTANEOUS Inject subcutan eously. NOVOLOG FLEXPEN SUBCUTANEOUS Inject subcutaneously. Slidi* EXENATIDE ER 2 MG/0.65 ML HAWKINS B* Inject subcutaneously. ROPINIROLE 1 MG TABLET Take 1 mg by mouth once daily. SIMVASTATIN 40 MG TAB LET Take 40 mg by mouth daily at * PREGABALIN 75 MG CAPSULE Take 150 mg by mouth twice da* OMEPRAZOLE 4 0 MG CAPSULE,SARA* Take 40 mg by mouth once alicia* VICODIN ORAL Take by mouth.Problem List As Of Eyad e 09/12/2017 Noted Resolved TB LUNG NODULAR-UNSPEC [A15.0] INVALID FOR* DIARRHEA NOS [R19.7] INVALID FOR* Nausea AND vomiting [R11.2] INVALID FOR*Prescriptions ordered this encounter Disp Refills Start End PROMETHAZINE 25 MG TABLET 90 t* 0 09/12/2017 10/12/2017 Route: ORAL Sig: Take 1 tablet by mouth every 8 hours as needed (for nausea). Status:Closed by JENNIE CURRY, NICOLAS PHD on 09/12/17 tsh on 2017-07-31 Thyrotropin Qn 2.260 0.400-5.500 uU/mL Normal 07-31-2017 [facility] ([id number]) Comment: Performed By: #### CK, FT4, TSH, LD6, HBA1C, LACPYR, AAQTPL, GADCAB, CARNPL, PLTHY ####[facility] L [address] [place], [place] [phone]#### CASRFX , LG1RFX, PARNEO #### [facility] [address] [place], [place] [phone] progress on 2017-07 Protein mass HNO ID: [id number]: Manuel landry 07-31-2017 [facility] (Rn) LAURIE Mezaervice: Clinic (none)Author Type: Registered [place] NurseType: Progress NotesFiled: ([id number]) 07/31/2017 10:55 AMNote Text:Met with patient for an education session after Gastroparesis Clinicappointment with Dr. Steven. Educated about labs, Smart Pill, medicationeducation - Remeron, [facility] Mychart and CPRP. Answered questions andprovided contact information for follow-up.AMBULATORY PATIENT EDUCATION NOTETOPIC: labs, Smart Pill, medication education - Remeron, [facility] Mychartand CPRPREADINESS TO LEARNCOGNITIVE ABILITY: Alert and orientedMOTIVATION TO LEARN: InterestedFAMILY SUPPORT: Unable to assess - Family not presentINSTRUCTION PROVIDED TO: PatientPATIENT LEARNS BEST BY: Multiple MethodsFACTORS AFFECTING LEARNING: Emotional Factors: DepressedPHYSICAL LIMITATIONS AFFECTING LEARNING: NoneLEARNING RESPONSEDIAGNOSIS: gastroparesisMETHOD OF INSTRUCTION: Written instruction - handoutsVerbal instructionPATIENT / FAMILY RESPONSE: Verbalizes understanding of: MEDICALREGIMEN-Importance of following prescribed medical regimenMEDICATION PRESCRIBED-Accurate knowledge of prescribed medication inoutpatient setting. labs, Smart Pill, medication education - Remeron, [facility] Mychart and CPRPFOLLOW-UP PLAN: Patient instructed to call with any further issuesContact information given.SUPPLEMENTAL MATERIAL: Remeron education handout, [facility] Map, CPRPinformationREFERRAL (RECOMMENDATION): NoneElectronically Signed By: Manuel Meza RN In Department:GASTROENTEROLOGY Protein mass HNO ID: [id number]: Rayne stone 07-31-2017 [place] leno GuilloryService: Clinic (none)Author Type: Azael morrison PsychologistType: Progress ([id number]) NotesFiled: 07/31/2017 10:40 AMNote Text:Behavioral MedicineDigestive Disease and Surgery InstituteName: Crystal Mallory#: [id number]: 07/31/17Time: [address] Cruz for Referral: gastroparesis interdisciplinary clinic ? addresspsychological factors as they affect physical conditionInformation relayed back to referral source via electronic medical recordHer chart was reviewed and she gave their own history which included theloss of her 1 year ago as well; as a complex medical historyincluding fibromyalgia which she attributes to a work related injury inwhich she says she also sustained a whiplash injury and pain that stillpersists and being on a respirator with pneumonia just before the onset ofher current symptoms.She discussed ways in which her medical condition had had an effect on herlife- she stays at home and watches TV. She was given information aboutways to mediate her emotional and physiological response. She was giventhe website for the [facility] and shown therelaxation recordings with the recommendation to practice this and therationale behind their use.She was urged to discuss with Dr. Steven to possible use of Cymbalta fordepression and pain, her use of opioids for her chronic pain, and thebenefits of exercise.Ranye Odom, Ph.D. plasma thymidine det on 2017-07-31 Plasma Thymidine Det View results in Normal [facility] Scanned Documents link [place] ([id number]) when available. Comment: Performed By: #### CK, FT4, TSH, LD6, HBA1C, LACPYR, AAQTPL, GADCAB, CARNPL, PLTHY ####[facility] L [address] [place], [place] [phone]#### CASRFX , LG1RFX, PARNEO #### [facility] [address] [place], [place] [phone] paraneoplast autoabs on 2017-07-31 ACh Receptor Bind Ab 0.00 <=0.02 nmol/L Normal 7 [facility] ([id number]) Comment: Result Comment: (NOTE)------ ADDITIONAL INFORMATION --This test was developed and its performance characteristicsdetermined by [facility] in a manner consistent with CLIArequirements. This test has not been cleared or approved bythe U.S. Food and Drug Administration. Performed By: #### CK, FT4, TSH, LD6, HBA1C, LACPYR, AAQTPL, GADCAB, CARNPL, PLTHY ####[facility] [place], [place] [phone]#### CASRFX , LG1RFX, PARNEO #### [address] [phone] AChR Ganglionic Neur 0.00 <=0.02 nmol/L Normal 7 [facility] (89698) Comment: Result Comment: (NOTE)------ ADDITIONAL INFORMATION --This test was developed and its performance characteristicsdetermined by [facility] in a manner consistent with CLIArequirements. This test has not been cleared or approved bythe U.S. Food and Drug Administration. Performed By: #### CK, FT4, TSH, LD6, HBA1C, LACPYR, AAQTPL, GADCAB, CARNPL, PLTHY ####[facility] [place], [place] [phone]#### CASRFX , LG1RFX, PARNEO #### [facility] [place], [place] [phone] Amphiphysin Ab, S Negative <1:240 Normal 07-31-2017 [facility] (69441) Comment: Result Comment: (NOTE)------ ADDITIONAL INFORMATION --This test was developed and its performance characteristicsdetermined by [facility] in a manner consistent with CLIArequirements. This test has not been cleared or approved bythe U.S. Food and Drug Administration. Performed By: #### CK, FT4, TSH, LD6, HBA1C, LACPYR, AAQTPL, GADCAB, CARNPL, PLTHY ####[facility] [address] [place], [place] [phone]#### CASRFX , LG1RFX, PARNEO #### [address] [phone] ERINN 1, S Negative <1:240 Normal 07-31-2017 [facility] ([id number]) Comment: Performed By: #### CK, FT4, TSH, LD6, HBA1C, LACPYR, AAQTPL, GADCAB, CARNPL, PLTHY ####[facility] [address] [place], [place] [phone]#### CASRFX , LG1RFX, PARNEO #### [address] [phone] ERINN 2, S Negative <1:240 Normal 07-31-2017 [facility] ([id number]) Comment: Result Comment: (NOTE)------ ADDITIONAL INFORMATION --This test was developed and its performance characteristicsdetermined by [facility] in a manner consistent with CLIArequirements. This test has not been cleared or approved bythe U.S. Food and Drug Administration. Performed By: #### CK, FT4, TSH, LD6, HBA1C, LACPYR, AAQTPL, GADCAB, CARNPL, PLTHY ####[facility] [place], [place] [phone]#### CASRFX , LG1RFX, PARNEO #### [facility] [place], [place] [phone] ERINN 3, S Negative <1:240 Normal 07-31-2017 [facility] ([id number]) Comment: Result Comment: (NOTE)------ ADDITIONAL INFORMATION --This test was developed and its performance characteristicsdetermined by [facility] in a manner consistent with CLIArequirements. This test has not been cleared or approved bythe U.S. Food and Drug Administration. Performed By: #### CK, FT4, TSH, LD6, HBA1C, LACPYR, AAQTPL, GADCAB, CARNPL, PLTHY ####[place] [address] [place], [place] [phone]#### CASRFX , LG1RFX, PARNEO #### [address] [phone] Anti-glial Nuc Ab 1 Negative <1:240 Normal 07-31-2017 [facility] (51878) Comment: Result Comment: (NOTE)------ ADDITIONAL INFORMATION --This test was developed and its performance characteristicsdetermined by [facility] in a manner consistent with CLIArequirements. This test has not been cleared or approved bythe U.S. Food and Drug Administration. Performed By: #### CK, FT4, TSH, LD6, HBA1C, LACPYR, AAQTPL, GADCAB, CARNPL, PLTHY ####[facility] [place], [place] [phone]#### CASRFX , LG1RFX, PARNEO #### [facility] [place], [place] [phone] Ca Ch Bind Ab,N Type 0.00 <=0.03 nmol/L Normal [facility] (01176) Comment: Result Comment: (NOTE)------ ADDITIONAL INFORMATION --This test was developed and its performance characteristicsdetermined by [facility] in a manner consistent with CLIArequirements. This test has not been cleared or approved bythe U.S. Food and Drug Administration. Performed By: #### CK, FT4, TSH, LD6, HBA1C, LACPYR, AAQTPL, GADCAB, CARNPL, PLTHY ####[facility] [place], [place] [phone]#### CASRFX , LG1RFX, PARNEO #### [address] [phone] Ca Chn Bind Ab, P/Q 0.00 <=0.02 nmol/L Normal 07-31-2017 [facility] (25079) Comment: Result Comment: (NOTE)------ ADDITIONAL INFORMATION --This test was developed and its performance characteristicsdetermined by [facility] in a manner consistent with CLIArequirements. This test has not been cleared or approved bythe U.S. Food and Drug Administration. Performed By: #### CK, FT4, TSH, LD6, HBA1C, LACPYR, AAQTPL, GADCAB, CARNPL, PLTHY ####[facility] [place], [place] [phone]#### CASRFX , LG1RFX, PARNEO #### [facility] [place], [place] [phone] CRMP 5 IgG, S Negative <1:240 Normal 07-31-2017 [facility] (55561) Comment: Result Comment: (NOTE)------ ADDITIONAL INFORMATION --This test was developed and its performance characteristicsdetermined by [facility] in a manner consistent with [facility]. This test has not been cleared or approved bythe U.S. Food and Drug Administration. Performed By: #### CK, FT4, TSH, LD6, HBA1C, LACPYR, AAQTPL, GADCAB, CARNPL, PLTHY ####[facility] L [address] [place], [place] [phone]#### CASRFX , LG1RFX, PARNEO #### [facility] [place], [place] [phone] Interpretive Comment (NOTE) Normal 7 [facility] (57402) Comment: Result Comment: Reflexed maria del carmen t(s) performed per testing algorithm.*The following antibody was ident ified: voltage gatedpotassium channel (VGKC-complex); negative for leucine-rich, glioma inactivated 1 protein-IgG (LGI1) andContactin-associat ed iscqmth-6-TnD (CASPR2). * The resultsof a positive VGKC-complex antibo dy with negative LGI1 andCASPR2-IgGs needs to be interpreted with caution. Th edetection of the VGKC-complex antibodies in isolation doesnot define an autoimmune neurological disorder. * Aparaneoplastic basis should be considered, according toage, sex, and other risk factors. * References: Sadiq Medina,Garcia JORGENSEN, Otf Chong, Socorro Medina, Onofre JW, Candelario JE,Euseibo A, Severino griffin AL, Dung RE, Kahlil Chong, Elver HARMAN,Ady VA, Rasheed CJ. Expa nded phenotypes and outcomes [id number] LGI1/CASPR2-IgG positive pat ients. Annals of Asozyvwiy0502; 82:79-92. * Doyle B, Jeremie M, Karla T, Roge grande I,Mindhaven S, Michelle C, Edgard W, Reginaldo C, Farhad C, Ta Torres P, Lyubov L, Brannon J, Salazar A, Mallorie P,Dustin S. Intracellular and non-neuronal targets ofvoltage-gated potassium channel complex antibodies. JNNP,December 19 2017. * van Alirio A, Martha M, Tim DM,Raysa S, Bety hoyt M, Rolanda E, Nam RH, Eddie R,Mara P, Brijesh S, Jennifer M. T he relevance of VGKCpositivity in the absence of LGI1 and Caspr2 antibodies.N eurology, 2016; 86; 8848-9276. Performed By: #### CK, FT4, TSH, LD6, HBA1C, LACPYR, AAQTPL, GADCAB, CARNPL, PLTHY ####[facility] L [address] [place], [place] [phone]#### CASRFX , LG1RFX, PARNEO #### [address] [phone] Neur V-G K+ Chann Ab 0.11 <=0.02 nmol/L High 7 [facility] (57787) Comment: Result Comment: (NOTE)------ ADDITIONAL INFORMATION --This test was developed and its performance characteristicsdetermined by [facility] in a manner consistent with CLIArequirements. This test has not been cleared or approved bythe U.S. Food and Drug Administration. Performed By: #### CK, FT4, TSH, LD6, HBA1C, LACPYR, AAQTPL, GADCAB, CARNPL, PLTHY ####[facility] [address] [place], [place] [phone]#### CASRFX , LG1RFX, PARNEO #### [facility] [place], [place] [phone] PARNEO Reflex Tests None. Normal 07-31-2017 [facility] () Comment: Result Comment: (NOTE)------ ADDITIONAL INFORMATION --This test was developed and its performance characteristicsdetermined by [facility] in a manner consistent with CLIArequirements. This test has not been cleared or approved bythe U.S. Food and Drug Administration. Performed By: #### CK, FT4, TSH, LD6, HBA1C, LACPYR, AAQTPL, GADCAB, CARNPL, PLTHY ####[facility] [address] [place], [place] [phone]#### CASRFX , LG1RFX, PARNEO #### [address] [phone] CLOCK SMITH 1, S Negative <1:240 Normal 07-31-2017 [facility] ([id number]) Comment: Result Comment: (NOTE)------ ADDITIONAL INFORMATION --This test was developed and its performance characteristicsdetermined by [facility] in a manner consistent with CLIArequirements. This test has not been cleared or approved bythe U.S. Food and Drug Administration. Performed By: #### CK, FT4, TSH, LD6, HBA1C, LACPYR, AAQTPL, GADCAB, CARNPL, PLTHY ####[facility] [address] [place], [place] [phone]#### CASRFX , LG1RFX, PARNEO #### [facility] [place], [place] [phone] CLOCK SMITH 2, S Negative <1:240 Normal 07-31-2017 [facility] (53665) Comment: Result Comment: (NOTE)------ ADDITIONAL INFORMATION --This test was developed and its performance characteristicsdetermined by [facility] in a manner consistent with CLIArequirements. This test has not been cleared or approved bythe U.S. Food and Drug Administration. Performed By: #### CK, FT4, TSH, LD6, HBA1C, LACPYR, AAQTPL, GADCAB, CARNPL, PLTHY ####[facility] [address] [place], [place] [phone]#### CASRFX , LG1RFX, PARNEO #### [facility] [place], [place] [phone] CLOCK SMITH Tr, S Negative <1:240 Normal 07-31-2017 [facility] (03008) Comment: Result Comment: (NOTE)------ ADDITIONAL INFORMATION --This test was developed and its performance characteristicsdetermined by [facility] in a manner consistent with CLIArequirements. This test has not been cleared or approved bythe U.S. Food and Drug Administration. Performed By: #### CK, FT4, TSH, LD6, HBA1C, LACPYR, AAQTPL, GADCAB, CARNPL, PLTHY ####[facility] [address] [place], [place] [phone]#### CASRFX , LG1RFX, PARNEO #### [facility] [place], [place] [phone] Striational Ab, S Negative <1:120 Normal 07-31-2017 [facility] ([id number]) Comment: Result Comment: (NOTE)------ ADDITIONAL INFORMATION --This test was developed and its performance characteristicsdetermined by [facility] in a manner consistent with CLIArequirements. This test has not been cleared or approved bythe U.S. Food and Drug Administration. Performed By: #### CK, FT4, TSH, LD6, HBA1C, LACPYR, AAQTPL, GADCAB, CARNPL, PLTHY ####[facility] [address] [place], [place] [phone]#### CASRFX , LG1RFX, PARNEO #### [facility] [place], [place] [phone] lgi1-igg reflex on 2017-07-31 LGI1-IGG CBA SERUM Negative Negative Normal 07-31-2017 [facility] ([id number]) Comment: Result Comment: (NOTE)------ ADDITIONAL INFORMATION --This test was developed and its performance characteristicsdetermined by [facility] in a manner consistent with CLIArequirements. This test has not been cleared or approved bythe U.S. Food and Drug Administration. Performed By: #### CK, FT4, TSH, LD6, HBA1C, LACPYR, AAQTPL, GADCAB, CARNPL, PLTHY ####[facility] [address] [place], [place] [phone]#### CASRFX , LG1RFX, PARNEO #### [facility] [place], [place] [phone] ld on 2017-07-31 LD 241 135-214 U/L High 07-31-2017 [facility] (58902) Comment: Performed By: #### CK, FT4, TSH, LD6, HBA1C, LACPYR, AAQTPL, GADCAB, CARNPL, PLTHY ####[facility] [place], [place] [phone]#### CASRFX , LG1RFX, PARNEO #### [facility] [place], [place] [phone] lactate/pyruvate on 2017-07-31 Lactate molar conc 2.1 0.5-2.2 mmol/L Normal 07-31-2017 [facility] (07881) Comment: Performed By: #### CK, FT4, TSH, LD6, HBA1C, LACPYR, AAQTPL, GADCAB, CARNPL, PLTHY ####[facility] [place], [place] [phone]#### CASRFX , LG1RFX, PARNEO #### [facility] [place], [place] [phone] Pyruvate 0.15 0.03-0.08 mmol/L High 07-31-2017 [facility] (65786) Comment: Result Comment: Specimen was not treated within the desired 30 minute time. Pyruvate result may be false ly decreased and lactate result may be falsely elevated. Performed By: #### CK, FT4, TSH, LD6, HBA1C, LACPYR, AAQTPL, GADCAB, CARNPL, PLTHY ####[facility] [place], [place] [phone]#### CASRFX , LG1RFX, PARNEO #### [facility] [place], [place] [phone] hemoglobin a1c on Glucose mass conc >240 mg/dL Normal 07-31-2017 [facility] (55188) Comment: Result Comment: eAG: (Estima patrick average glucose) is a calculated value from HgbA1c and is human resources hr representative of the average blood glucose level in the last 2-3 month period. Performed By: #### CK, FT4, TSH, LD6, HBA1C, LACPYR, AAQTPL, GADCAB, CARNPL, PLTHY ####[facility], [place] [phone]#### CASRFX , LG1RFX, PARNEO #### [facility] [place], [place] [phone] Hemoglobin A1c/Hemoglobin.total 10.7 4.3-5.6 % High 07-31-2017 [facility] mass fraction (Bld) [place] ([id number]) Comment: Result Comment: [place] [employer] guidelines indicate that patients with HgbA1c in the range 5.7-6.4% are at increased risk for development of diabetes, and intervention by lifestyle modification may be beneficial. HgbA1c greater o r equal to 6.5% is considered diagnostic of diabetes. Performed By: #### CK, FT4, TSH, LD6, HBA1C, LACPYR, AAQTPL, GADCAB, CARNPL, PLTHY ####[facility], [place] [phone]#### CASRFX , LG1RFX, PARNEO #### [facility] [place], [place] [phone] glutamic ac decar ab on 2017-07-31 Glutamic Ac Decar Ab <5.0 <5.0 Normal 7 [facility] ([id number]) Comment: Performed By: #### CK, FT4, TSH, LD6, HBA1C, LACPYR, AAQTPL, GADCAB, CARNPL, PLTHY ####[facility] [place], [place] [phone]#### CASRFX , LG1RFX, PARNEO #### [facility] [place], [place] [phone] free t4 on T4 free mass conc 1.2 0.9-1.7 ng/dL Normal 07-31-2017 [facility] ([id number]) Comment: Performed By: #### CK, FT4, TSH, LD6, HBA1C, LACPYR, AAQTPL, GADCAB, CARNPL, PLTHY ####[facility] [id number] [place], [place] [phone]#### CASRFX , LG1RFX, PARNEO #### [facility] [place] [phone] cnov on 2017-07-31 CNOV Office Visit Normal 07-31-2017 [place] and (GASTMN) --------[facility] ([id number][facility] 1955 FDat e Time Provider Nlwbtvqaej84/13/17 10:00 AM MUKUL STEVEN GASTMN During Clev and your visit today, we recorde d the following information about you: Temperature Pulse Blood pressure (27134) Weight 98.6 degrees 68/minut e 175/87 107 kg Height 1.676 mMsaul Steven DO 07/31/2017 10:10 AM SignedGASTROPARESIS CONSULTP [facility] You Parks for an opinion regarding GP andmy final recommendations will be communicated back to the requesting physicianby way of a copy of today's office notes.PRESENT ING COMPLAINT ANDamp; HISTORYRejay jay is a 61 year old female with a pmhx of diabetes type II, neuropa thy,chronic pain, and cholecystectomy that was diagnosed with gastroparesis 07/2017after h aving a GES that showed 37% retention at 4 hours. Her stomach issuesstarted about 3 years ago with nausea and vomiting. For the last couple ofmonths she has been to the ER 3-4 x per month for N /V. She was diagnosed withDiabetes Type II in 2003, controls with insulin, and has neuropathy bilateral feet. She has been on Reglan 10 mg 3 x per day for over a year which helpscontrol her nausea and takes prn phenergan and Zofran. Vomits throughout theweek. Denies abdominal pain and bloating. Takes omeprazole for mild reflux.Has lost about 30 lbs over the past year, but states partially d ue to the deathof her . Bowel movements are normal, with a bm every day or every otherday. No la xatives. Experiences early satiety and lack of appetite. Has beentaking pain medication for back ewa n, morphine 12 mg 2x per day (taking for 2years); Rockwood 4x per day (20 years). Diet: eats around 2 meals per day. Nodoing any nutritional drinks.Behavorial MedicinePhysical Function: 18Pain Interferenc e: 16Emotional Distress A: 14Emotional Stress D: 21Gastroparesis SymptomsNausea:Yes intermitt ent, controlled with Reglan. Takes prn Phenergan andZofran.Vomiting: Yes throughout the weekReflux/he artburn: Yes a little, takes omeprazoleAbdominal bloating: NoAbdominal pain/discomfort: NoWeight lo ss: Yes Lost 30 lbs in the last year, some of it has to do with of her husbandover the last yea r.Weight gain: NoDiarrhea: NoConstipation: No Has bm daily or every other day. Not taking laxativesLac k of appetite: YesEarly feeling of fullness when eating: YesMalnutrition: NoMEDICATION HISTORYPromotil ity Drugs- Reglan (Metoclopramide): Yes has been taking for about a year and a halftaking 10 mg 3x pe r day. Has noticed shaking in hands and tremors.- Motilium (Domperidone): No- Erythromycin (E-mycin): No- Propulsid (Cisapride)_: NoOther- Tricyclic Antidepressants (nortriptyline - Pamelor; am itriptyline - Elavil):No- Buspirone (Buspar): No- Mirtazapin (Remeron): NoAnti-Nausea Medications- C ompazine (Prochlorperazine): Yes did not work- Phenergan (Promethazine): Yes prn- Benadryl (Diphenhyd ramine): No- Zofran (Ondansetron): Yes Prn- Scopace (Scopolamine Patch): No- Tigan (Trimethobenzamide )_: NoConstipation Medications- Bulking Agents (Metamucil,Citrucel, Fibercon): No- Osmotic Laxat lu (MOM, Polyethylene glycol (PEG), lactulose,sorbitol,MiraLax, Chronulal, Cephulac,Xylitol) : No- Stimulant Laxatives (Ex-Lax, Senokot,Correctol, Dulcolax): No- Stool Softeners (Colace): No- Chlo ride Channel Activator (Amitiza): No- Linzess: NoPain Medications- Does the patient see a pain manag ement specialist for chronic abdomomnalpain?No back pain- Is the patient taking narcotic pain medicat ion for chronic abdominal pain? Yes- Narcotic Medications: (Tramadol, Fentanyl, codeine, hydrocodo ne,Hydromorphone, methadone, morphine, Oxycodone) Yes morphine 12 mg 2x per day(taking for 2 years); Rockwood 4x per day (20 years)Drug use- History or current drug use (Marijuana, Cocaine, Heroine , etc...) NoEating Disorders- Does the patient have a history of eating disorders NoPsychiatric Diso rders- Does the patient have a history of psychiatric disorders including PTSD: NoNutrition- Has the p atient met with a special delivery clerk for diet recommendations withGastroparesis? No - Jejunostomy (J-tube): _ No - Gastrostomy (G-tube): No - Gastro-Jejunostomy (GJ-tube): _No - Nasojejunal (NJ-tube): _No - Nasogastric (NG-tube): _No - TPN (IV): _No - Other: _NoMedical Records- Has the patient had a smart capsule study completed? No- Does the patient have a history of any foregut surgery (vagotomy, h iatalhernia repair/PREETI Fundoplication, Heller Myotomy, gastrectomy, gastricbypass)?No If surgery , recent UGI? No- EGD: Yes- Botox Injections: NoPatient Name Crystal Cramer Age [age] year old MRN [id number] ConsultTest Date Completed ResultsLabsEGD [facility] Findings:The examined esopha yuliana was normal. LES at 40cm.A few 5 mm sessile polyps with no stigmata of recent bleeding were found i n thegastric body. Biopsies were taken with a cold forceps forhistology. There are no thickened folds . The gastric antrum was normal.Biopsies were taken with a cold forceps for histology. Biopsies were taken witha cold forceps for Helicobacter pylori testing.The examined duodenum was normal.Impressi on: ?- Normal esophagus.- A few gastric polyps. Biopsied.- Normal antrum. Biopsied.- Normal ex amined duodenum.Pathology:1. Stomach, antrum, biopsy (A) - Antral and transitional type gastric mu cosawith changes of chemical gastritis (reactive gastropathy). ?- No Helicobacter organisms ident ified.- Negative for intestinal metaplasia.2. Stomach, body polyp, biopsy (B) - Fundic gland polyp, ne gative fordysplasia.EGD [facility] Findings:The esophagus was normal.The entire examined stomach was normal. Biopsies were taken with a cold forcepsfor histology. Biopsies were taken with a cold force ps for Helicobacter pyloritesting.The examined duodenum was normal.Impression: ? - Normal esophagus.- Normal stomach. Biopsied.- Normal examined duodenum.FINAL DIAGNOSIS1. S tomach, antrum, biopsy (A) - Antral mucosa with features suggestive ofreactive gastropathy; no m orphologic evidence of H. pylori infection.2. Colon, mid transverse, polyp, biopsy (B) - Colonic mucosa with no diagnosticabnormality; no evidence of dysplasia.Colonoscopy [facility] Findings:A sess ile polyp was found in the mid transverse colon. The polyp was 5 mm insize. The polyp was remove d with a cold biopsy forceps. Resectionand retrieval were complete.Impression: ?- One 5 mm polyp in the mid transverse colon. Resected and retrieved.FINAL DIAGNOSIS2. Colon, mid transverse, polyp, biopsy (B) - Colonic mucosa with no diagnosticabnormality; no ev idence of dysplasia.Gastric Emptying Study CC FINDINGS:At 30 minutes post ingestion, ther e is 93% gastric retention. ??At 60 minutes post ingestion, there is 84% gastric retention.?At two ho urs post ingestion, there is 71% gastric retention.?On the 4 hour delayed image, there is 37% percent gastric retention.?The time for the stomach to empty 50% of the contents of the stomach is 196minutes .?IMPRESSION:Markedly delayed solid gastric emptying.Gastric Emptying Study [facility] Findings:Initially static images were obtained after the ingestion of the isotope up to60 minutes. Additional static images at 2 and 3 hours were also obtained.There is poor accomodation movement o f the isotope through the stomach. Thereis however visualization of isotope within the small bow el at approximately 30minutes after ingestion of the meal.At 2 and 3 hours post administration of the i sotope minimal residual activityis still noted within the stomach although at the end of 3 hours most o f theactivity is present within the small bowel.The T 1/2 max to emptying is 37 minutes. The lag phase is approximately 15.2minutes.Impression:1. No evidence of gastric outlet obstruction.2. Grossly vivienne l gastric emptying with only very minimal retention initiallynoted and almost complete clearance at the end of 3 hours.XR Upper GI [facility] Impression:1. Findings described above con sistent with gastritis and duodenitis withmultiple small superficial ulcerations and mucosal fold thickening. No largeulcers or masses are identified.2. Multiple spontaneous episodes of GE r eflux to the level above the clavicles.There also are tertiary contractions consistent with presbyesophagus. Noevidence of esophageal ulceration or stricture is seen. Correlate clinically.3 . Chronic changes as described above.ConsultsGI [id number], [facility] SUBJECTIVE: Crystal chen s last seen in the office on May 22, 2016. Atthat time, she was noted to have an EGD that was norm al. She was treated withCarafate and omeprazole which were mildly effective. She was given low -doseReglan which dramatically improved her symptoms. We bumped that to 10 mgt.i.d. and she currently h as no symptoms at all. She has not had a gastricsolid phase emptying study and is as mentioned complete ly asymptomatic.?IMPRESSION AND RECOMMENDATION:Patient with reflux and epigastric discomfort comple tely resolved on Reglan.?I have called-in some Zofran for her, which has been helpful in the past, an dwe will otherwise plan on seeing in a year.PAST SURGICAL HISTORYProcedure Laterality Date- COLONOSCOP W/ OR W/O [facility] SPEC 06/19/2013 Colonoscopy- COLONOSCOPY W/BX 05/27/07- EGD W/O OR W/BRUSH/WASH 3 EGD- EGD W/O OR W/BRUSH/WASH 02/17/15 EGD- REMOVAL GALLBLADDER CholecystectomyCurrent Outpa tient Prescriptions:metoclopramide HCl (REGLAN) 10 mg tablet Take 1 tablet by mouth three timesdaily fo r 30 days. Disp: 90 tablet Rfl: 0morphine IR 15 mg tablet Take 15 mg by mouth every 4 hours as neede d. Disp:Rfl:lamoTRIgine (LAMICTAL) 100 mg tablet Take 100 mg by mouth twice daily. Disp:Rfl:Levoth yroxine 50 mcg cap Take by mouth once daily. Disp: Rfl:sertraline (ZOLOFT) 100 mg tablet Take 100 mg by mouth once daily. Disp: Rfl:allopurinol (ZYLOPRIM) 100 mg tablet Take 100 mg by mouth once daily. Disp :Rfl:valsartan (DIOVAN) 80 mg tablet Take 80 mg by mouth once daily. Disp: Rfl:aspirin, enteric coated (ASPIRIN, ENTERIC COATED) 81 mg EC tablet Take 81 mg bymouth once daily. Disp: Rfl:INSULIN DEGLUDEC ( TRESIBA FLEXTOUCH U-100 SUBCUTANEOUS) Inject 120 mgsubcutaneously once daily. Disp: Rfl:INSULIN LIS PRO (HUMALOG SUBCUTANEOUS) Inject subcutaneously as directed. Disp: Rfl:SUMATRIPTAN SUCCINATE OR AL Take by mouth as needed. Disp: Rfl:metoclopramide HCl (REGLAN) 10 mg tablet Take 1 tablet by mout h three timesdaily. Disp: 90 tablet Rfl: 3ondansetron (ZOFRAN) 4 mg tablet Take 1 tablet by mouth every 8 hours asneeded. Disp: 30 tablet Rfl: 1montelukast (SINGULAIR) 10 mg tablet Take 10 mg by mouth d aily at bedtime.Disp: Rfl:metoclopramide HCl (REGLAN) 5 mg tablet Take 5 mg by mouth four times daily .Disp: Rfl:sucralfate (CARAFATE) 1 gram tablet Take 1 g by mouth four times daily. Disp:Rfl:olmesa rtan (BENICAR) 40 mg tablet Take 40 mg by mouth once daily. Disp: Rfl:INSULIN ASPART (NOVOLOG PENFILL SUBCUTANEOUS) Inject subcutaneously. Disp:Rfl:INSULIN ASPART (NOVOLOG FLEXPEN SUBCUTANEOU S) Inject subcutaneously. Slidingscale Disp: Rfl:exenatide microspheres (BYDUREON) 2 mg/0.65 mL pnij Inject subcutaneously.Disp: Rfl:rOPINIRole 1 mg tablet Take 1 mg by mouth once daily. Disp: Rfl:simvas tatin 40 mg tablet Take 40 mg by mouth daily at bedtime. Disp: Rfl:pregabalin (LYRICA) 75 m g capsule Take 150 mg by mouth twice daily. Disp: Rfl:Omeprazole 40 mg capsule Take 40 mg by mouth once daily. Disp: Rfl:HYDROCODONE BIT/ACETAMINOPHEN (VICODIN ORAL) Take by mouth. Disp: Rfl:No current facility-administered medications for this visit.ALLERGIESAllergen Reactions- Ciprofloxacin Unk nown- Flexeril [Cyclobenz* Unknown- Metformin Other: See Comments Migraines- Toradol [Ketorola c]- Band Aids [Other]Family HistoryProblem Relation Age of Onset- GI Mother Crohn's- GI Son Crohn 'sSocial History Marital status: Spouse name: Cheikh Years of education: Number of childre n: 2Social History Main Topics Smoking status: Never Smoker Smokeless status: Never Used Alcohol u se: No Drug use: NoGI SPECIFIC ROSDifficulty swallowing / foods sticking in throat: NoHoarseness: Yes Chronic cough: NoRegurgitation: NoChest pain: NoRecent change in bowel movements: NoBloody or black , bowel movements: NoLoss of control of bowel movements: NoNight sweats, fever, chills: NoThought or memory problems: NoFluid in abdomen (ascites): NoProminent leg swelling: NoVomiting blood: NoREVIEW O F SYSTEMSGENERAL: No weight loss, malaise or feversHEENT: Negative for frequent or significant head aches, No changes in hearing orvision, no nose bleeds or other nasal problemsRESPIRATORY: Negativ e for cough, hemoptysis, wheezing, COPD, dyspnea orshortness of breathCARDIOVASCULAR: Negati ve for chest pain, leg swelling, hypertension, CHF orpalpitationsGU: No history of dysuria, frequenc y or incontinenceGYN: Negative for abnormal vaginal bleeding, abnormal vaginal dischargeMUSCULOSKEL ETAL: Positive for muscle pain: fibromyalgiaSKIN: Negative for lesions, rash, and itchingPSYCH: Nega tive for sleep disturbance, mood disorder and recent psychosocialstressorsENDOCRI NE: Negative for cold or heat intolerance, polyuria, polydipsia andgoiterNEURO: No history o f headaches, syncope, paralysis, seizures or tremorsPHYSICAL EXAMINATIONBP 175/87 Pulse 68 Temp (Sr c) 98.6 (Oral) Ht 5' 6ANDquot; (1.68m) Wt 236lb (107.0kg) SpO2 95% BMI 38.11 kg/(m2).General ap pearance: well appearing, alert, in no acute distress, well-hydrated,well nourishedSkin: Skin color, t exture, turgor normal, no suspicious rashes or lesionsHead: normalEyes: Anicteric sclera. Pupils are equally round and reactive to light.Extraocular movements are intact.Ears: NegativeNose/Si nuses: NegativeOropharynx: Lips, mucosa, and tongue normal, teeth and gums normal, oropharynxnormalNeck : Supple, no adenopathy; thyroid symmetric, normal size, no bruitsBack: motor and sensory appear to be normalLungs: lungs clear to auscultation, no wheezing or rhonchiHeart: RRR without murmur, gallop, or rubs. No ectopyAbdomen: Abdomen soft, non- tender. Bowel sounds normal. No masses, organomegalyExtre mities: Negative findings: No cyanosis, clubbing or edemaMusculoskeletal: No joint swelling, deformity , or tendernessPeripheral pulses: NormalNeuro: Negative findings: speech normal, mental status intact , cranial nerves2-12 intactAssessmentEncounter Diagnosis ICD-10-CM1. Gastroparesis K31.84 CK CREA BAL KINASE LD LACTATE DEHYDRO HGB A1C TSH BLD T4 FREE/FREE THYROX PYRUVATE+LACTATE BL AMINO AC ID QUANT BLD CARNITINE FREE/TOTAL, PLASMA PARANEOPLAST AUTOABS GLUTAMIC AC DECARBOXYLASE AB PLASMA THYM IDINE DETERMINATION CAPSULE ENDOSCOPY SMART mirtazapine (REMERON) 15 mg tabletMukul Steven DO2016Referring Provider: YOU PARKS [[id number]]Allergies As of Date: 07/31/2017 Noted Aller gy ReactionBACTRIM (SULFAMETHOXAZOLE- TRIMETH*07/31/2017 4 - HivesCIPROFLOXACIN 3 16 - UnknownFLEXERIL (CYCLOBENZAPRINE) 06/10/2013 16 - UnknownMETFORMIN 06/28/2017 14 - Other: See Azael gardiner Comments: MigrainesTORADOL (KETOROLAC) 03/22/2006band aids [Other] 05/27/2007Date Reviewed: Reviewed by: Mukul Steven - Fully AssessedReason for Visit: Consult [502] Cmt: Gastropar esisPrimary Visit Diagnosis:Gastroparesis [K31.84]Order(s):CK CREATINE KINASE [SQCK] Order #: [id number] FUTURE LD LACTATE DEHYDRO [SQLD6] Order #: [id number] FUTURE HGB A1C [WODRO1Q] Order #: [id number] FUTURE TSH BLD [SQTSH] Order #: [id number] FUTURE T4 FREE/FREE THYROX [SQFT4] Order #: [id number] FUTURE PYRUVATE+LACTATE BL [SQLACPYR] Order #: [id number] FUTURE AMINO ACID QUANT BLD [SQAAQTPL] Or batsheva #: [id number] FUTURE CARNITINE FREE/TOTAL, PLASMA [SQCARNPL] Order #: [id number] FUTURE PARANEOPLA ST AUTOABS [SQPARNEO] Order #: [id number] FUTURE GLUTAMIC AC DECARBOXYLASE AB [SQGADCAB] Order #: [id number] FUTURE PLASMA THYMIDINE DETERMINATION [SQPLTHY] Order #: [id number] FUTURE CAPSULE ENDOSCOPY SMA RT [4504833] Order #: [id number] FUTURE mirtazapine (REMERON) 15 mg tabletTake 1 tablet by mouth daily at bedtime.Disp: 30 tabletRfl: 6Prescriptions as of 07/31/2017 Sig: METOCLOPRAMIDE 10 MG TABLET Take 1 tablet by mouth three * MORPHINE 15 MG IMMEDIATE RELE* Take 15 mg by mouth every 4 h* LAMOTRIG INE 100 MG TABLET Take 100 mg by mouth twice da* LEVOTHYROXINE 50 MCG CAPSULE Take by mouth once d aily. SERTRALINE 100 MG TABLET Take 100 mg by mouth once scotty* ALLOPURINOL 100 MG TABLET Take 100 mg by mouth once scotty* VALSARTAN 80 MG TABLET Take 80 mg by mouth once alicia* ASPIRIN 81 MG TABLET,DELAYED * Take 81 mg by mouth once alicia* TRESIBA FLEXTOUCH U-100 SUBCU* Inject 120 mg subcutaneously * TABITHA LOG SUBCUTANEOUS Inject subcutaneously as dir* SUMATRIPTAN SUCCINATE ORAL Take by mouth as needed. MET OCLOPRAMIDE 10 MG TABLET Take 1 tablet by mouth three * ONDANSETRON HCL 4 MG TABLET Take 1 tablet by m outh every * NOVOLOG PENFILL SUBCUTANEOUS Inject subcutaneously. ROPINIROLE 1 MG TABLET Take 1 mg by mouth once daily. SIMVASTATIN 40 MG TABLET Take 40 mg by mouth daily at * PREGABALIN 75 MG CAPSULE Take 150 mg by mouth twice da* OMEPRAZOLE 40 MG CAPSULE,SARA* Take 40 mg by mouth once alicia* CODIN ORAL Take by mouth. MIRTAZAPINE 15 MG TABLET Take 1 tablet by mouth daily * MONTELUKAST 10 MG TA BLET Take 10 mg by mouth daily at * METOCLOPRAMIDE 5 MG TABLET Take 5 mg by mouth four times* SUCRALF ATE 1 GRAM TABLET Take 1 g by mouth four times * OLMESARTAN 40 MG TABLET Take 40 mg by mouth once scotty l* NOVOLOG FLEXPEN SUBCUTANEOUS Inject subcutaneously. Slidi* EXENATIDE ER 2 MG/0.65 ML SUB* Inject sub cutaneously.Problem List As Of Date 07/31/2017 Noted Resolved TB LUNG NODULAR-UNSPEC [A15.0] INVAL ID FOR* DIARRHEA NOS [R19.7] INVALID FOR* Nausea AND vomiting [R11.2] INVALID FOR*Prescriptions or dered this encounter Disp Refills Start End MIRTAZAPINE 15 MG TABLET 30 t* 6 07/31/2017 Route: ORAL Sig : Take 1 tablet by mouth daily at bedtime. Status:Closed by MUKUL STEVEN DO on 10/01/16 [facility] Office Visit Normal 07-31-2017 Shauna colón (SVEN) --------CRYSTAL CRAMER [facility] ([id number]) 1955 [facility] e Time Provider Vsesberylp59/13/17 9:00 AM RAYNE COOK During your visit today, we recorded the following information about you:Rayne Odom, PHD ([id number]) 07/31/2017 10:40 AM [facility] InstituteName: Crystal Mallory#: [id number]: 07/19 11/02Time: 1 hourRef[address]: Dr. Cruz for Referral: gastroparesis interdisciplinary clinic ? a ddresspsychological factors as they affect physical conditionInformation relayed back to referral carrol e via electronic medical recordHer chart was reviewed and she gave their own history which included t he lossof her 1 year ago as well; as a complex medical history includingfibromyalgia which she attributes to a work related injury in which she saysshe also sustained a whiplash injury and pain that still persists and being gilda respirator with pneumonia just before the onset of her curr ent symptoms.She discussed ways in which her medical condition had had an effect on herlife- she stays at home and watches TV. She was given information about ways tomediate her emotional and physiologi elly response. She was given the website forthe [facility] and shown the relaxa tion recordings withthe recommendation to practice this and the rationale behind their use.She was urg ed to discuss with Dr. Steven to possible use of Cymbalta fordepression and pain, her use of opioids for her chronic pain, and the benefitsof exercise.Rayne Odom, Ph.D.Referring Provider: MUKUL RUIZ [[id number]]Allergies As of Date: 07/31/2017 Noted Allergy ReactionBACTRIM (SULFAMETHOX AZOLE-TRIMETH*07/31/2017 4 - HivesCIPROFLOXACIN 06/10/2013 16 - UnknownFLEXERIL (CYCLOBENZAP RINE) 06/10/2013 16 - UnknownMETFORMIN 06/28/2017 14 - Other: See Comments Comments: MigrainesTORADOL ( KETOROLAC) 03/22/2006band aids [Other] 05/27/2007Date Reviewed: 07/31/2017Reviewed by: Taras Banuelos Steven - Fully AssessedPrimary Visit Diagnosis:Non-intractable vomiting with nausea, unspec ified vomiting type [R11.2]Prescriptions as of 07/31/2017 Sig: METOCLOPRAMIDE 10 MG TABLET Take 1 tablet by mouth three * MORPHINE 15 MG IMMEDIATE RELE* Take 15 mg by mouth every 4 h* LAMOTRIG INE 100 MG TABLET Take 100 mg by mouth twice da* LEVOTHYROXINE 50 MCG CAPSULE Take by mouth once d aily. SERTRALINE 100 MG TABLET Take 100 mg by mouth once scotty* ALLOPURINOL 100 MG TABLET Take 100 mg by mouth once scotty* VALSARTAN 80 MG TABLET Take 80 mg by mouth once alicia* ASPIRIN 81 MG TABLET,DELAYED * Take 81 mg by mouth once alicia* TRESIBA FLEXTOUCH U-100 SUBCU* Inject 120 mg subcutaneously * TABITHA LOG SUBCUTANEOUS Inject subcutaneously as dir* SUMATRIPTAN SUCCINATE ORAL Take by mouth as needed. MET OCLOPRAMIDE 10 MG TABLET Take 1 tablet by mouth three * ONDANSETRON HCL 4 MG TABLET Take 1 tablet by m outh every * MONTELUKAST 10 MG TABLET Take 10 mg by mouth daily at * METOCLOPRAMIDE 5 MG TABLET T amy 5 mg by mouth four times* SUCRALFATE 1 GRAM TABLET Take 1 g by mouth four times * OLMESARTAN 40 M G TABLET Take 40 mg by mouth once alicia* NOVOLOG PENFILL SUBCUTANEOUS Inject subcutaneously. NOVOL OG FLEXPEN SUBCUTANEOUS Inject subcutaneously. Slidi* EXENATIDE ER 2 MG/0.65 ML SUB* Inject subcu taneously. ROPINIROLE 1 MG TABLET Take 1 mg by mouth once daily. SIMVASTATIN 40 MG TABLET Peter e 40 mg by mouth daily at * PREGABALIN 75 MG CAPSULE Take 150 mg by mouth twice da* OMEPRAZOLE 40 MG C APSULE,SARA* Take 40 mg by mouth once alicia* VICODIN ORAL Take by mouth.Problem List As Of Eyad e 07/31/2017 Noted Resolved TB LUNG NODULAR-UNSPEC [A15.0] INVALID FOR* DIARRHEA NOS [R19.7] INVALID FOR* Nausea AND vomiting [R11.2] INVALID FOR* Status:Closed by DONOVAN COOK PHD on 07/31/17 cnnurse on CNNURSE Nurse Visit Normal 07-31-2017 Skip nd (GASTMN) --------CRYSTAL CRAMER [facility] ([id number]) 1955 FDat e Time Provider Kbpmqppuew40/13/17 10:30 AM NURSE PT ED KOBE GASTMN During Juwan veland your visit today, we recorde d the following information about you:Manuel Meza, RN, RN 07/31/2017 (0 0000) 10:55 AM SignedMet with negro ent for an education session after Gastroparesis Clinicappointment with Dr. Steven. Educated about la bs, Smart Pill, medicationeducation - Remeron, [facility] Mychart and CPRP. Answered questions and provi dedcontact information for follow-up.AMBULATORY PATIENT EDUCATION NOTETOPIC: labs, Smart Pill, medication education - Remeron, [facility] Mychart and CPRPREADINESS TO LEARNCOGNITIVE ABILITY: Aler t and orientedMOTIVATION TO LEARN: InterestedFAMILY SUPPORT: Unable to assess - Family not presentI NSTRUCTION PROVIDED TO: PatientPATIENT LEARNS BEST BY: Multiple MethodsFACTORS AFFECTING GURU RNING: Emotional Factors: DepressedPHYSICAL LIMITATIONS AFFECTING LEARNING: NoneLEARNING RESPO NSEDIAGNOSIS: gastroparesisMETHOD OF INSTRUCTION: Written instruction - handoutsVerbal instructionPA TIENT / FAMILY RESPONSE: Verbalizes understanding of: MEDICALREGIMEN-Importance of following prescribed medical regimenMEDICATION PRESCRIBED-Accurate knowledge of prescribed medi cation in outpatientsetting. labs, Smart Pill, medication education - Remeron, [facility] Mychart and CPR PFOLLOW-UP PLAN: Patient instructed to call with any further issuesContact information given.SUPPLEMENT AL MATERIAL: Remeron education handout, [facility] Map, CPRP informationREFERRAL (RECOMMENDATION): NoneElectr onically Signed By: Manuel Meza RN In Department: GASTROENTEROLOGYReferring Pr ovider: HARVEY BELCHER [[id number]]Allergies As of Date: 07/31/2017 Noted Allergy ReactionBACTRI M (SULFAMETHOXAZOLE-TRIMETH*07/31/2017 4 - HivesCIPROFLOXACIN 06/10/2013 16 - UnknownFLEXERIL (CYCLOB ENZAPRINE) 06/10/2013 16 - UnknownMETFORMIN 06/28/2017 14 - Other: See Comments Comments: Migraines TORADOL (KETOROLAC) 03/22/2006band aids [Other] 05/27/2007Date Reviewed: 07/31/2017Reviewed by: Taras Steven - Fully AssessedReason for Visit: Patient Education [91] Cmt: Gastroparesis ClinicPrimary Visit Diagnosis:Gastroparesis [K31.84]Prescriptions as of 07/31/2017 Sig: METOCLOPRAMIDE 10 MG TABLET Take 1 tablet by mouth three * MORPHINE 15 MG IMMEDIATE RELE* Take 15 mg by mouth every 4 h* LAMOTRIG INE 100 MG TABLET Take 100 mg by mouth twice da* LEVOTHYROXINE 50 MCG CAPSULE Take by mouth once d aily. SERTRALINE 100 MG TABLET Take 100 mg by mouth once scotty* ALLOPURINOL 100 MG TABLET Take 100 mg by mouth once scotty* VALSARTAN 80 MG TABLET Take 80 mg by mouth once alicia* ASPIRIN 81 MG TABLET,DELAYED * Take 81 mg by mouth once alicia* TRESIBA FLEXTOUCH U-100 SUBCU* Inject 120 mg subcutaneously * TABITHA LOG SUBCUTANEOUS Inject subcutaneously as dir* SUMATRIPTAN SUCCINATE ORAL Take by mouth as needed. MET OCLOPRAMIDE 10 MG TABLET Take 1 tablet by mouth three * ONDANSETRON HCL 4 MG TABLET Take 1 tablet by m outh every * MONTELUKAST 10 MG TABLET Take 10 mg by mouth daily at * METOCLOPRAMIDE 5 MG TABLET T amy 5 mg by mouth four times* SUCRALFATE 1 GRAM TABLET Take 1 g by mouth four times * OLMESARTAN 40 M G TABLET Take 40 mg by mouth once alicia* NOVOLOG PENFILL SUBCUTANEOUS Inject subcutaneously. NOVOL OG FLEXPEN SUBCUTANEOUS Inject subcutaneously. Slidi* EXENATIDE ER 2 MG/0.65 ML SUB* Inject subcu taneously. ROPINIROLE 1 MG TABLET Take 1 mg by mouth once daily. SIMVASTATIN 40 MG TABLET Peter e 40 mg by mouth daily at * PREGABALIN 75 MG CAPSULE Take 150 mg by mouth twice da* OMEPRAZOLE 40 MG C APSULE,SARA* Take 40 mg by mouth once alicia* VICODIN ORAL Take by mouth.Problem List As Of Eyad e 07/31/2017 Noted Resolved TB LUNG NODULAR-UNSPEC [A15.0] INVALID FOR* DIARRHEA NOS [R19.7] INVALID FOR* Nausea AND vomiting [R11.2] INVALID FOR* Status:Closed by MANUEL MEZA on 07/31 ck on 2017-07-31 CK enzyme act/vol 54 42-196 U/L Normal 07-31-2017 [facility] (70039) Comment: Result Comment: Please note the updated, gender-specific reference range for this test (effective 016). Performed By: #### CK, FT4, TSH, LD6, HBA1C, LACPYR, AAQTPL, GADCAB, CARNPL, PLTHY ####[facility] L [address], [place] [phone]#### CASRFX , LG1RFX, PARNEO #### [facility] [address], [place] [phone] caspr2-igg reflex o n 2017-07-31 CASPR2-IGG CBA SERUM Negative Negative Normal 7 [facility] (17323) Comment: Result Comment: (NOTE)------ ADDITIONAL INFORMATION --This test was developed and its performance characteristicsdetermined by [facility] in a manner consistent with CLIArequirements. This test has not been cleared or approved bythe U.S. Food and Drug Administration. Performed By: #### CK, FT4, TSH, LD6, HBA1C, LACPYR, AAQTPL, GADCAB, CARNPL, PLTHY ####[facility] [address], [place] [phone]#### CASRFX , LG1RFX, PARNEO #### [facility] [address] [place], [place] [phone] carnitine fr/tot, pl on 2017-07-31 Carnitine Interp (NOTE) Normal 07-31-2017 [facility] (21372) Comment: Result Comment: This assay o f plasma free and total carnitine shows no significantabnormalities.NOT E: The determination of the plasma free carnitine level and of theto jennifer free and acylcarnitine levels is dependent on multiple factors,includin g the nutritional status of the subject, his/her underlyingdisorder, concurre nt illnesses and, sometimes, medications that he/sheis receiving. Conseque ntly, a normal or minimally abnormal result withthis test does not alway s rule-out the possibility of a disorder ofcarnitine or fatty acid me tabolism. This test does not by itself provideinformation on the le vels of various plasma acylcarnitine species andmeasurement of the latter is often needed for the diagnostic evaluationand follow-up of d isorders of mitochondrial fatty acid beta-oxidationand some other disorders associated with pathologic levels of selectedacylcarnitine specie s.This test was developed and its performance characteristics determinedby the Pathology and Laboratory Medicine [place] at the [facility]. The U.S. Food and Drug Administration has not approved orcleared this test , however, FDA clearance or approval is not currentlyrequired for clinic al use. Performed By: #### CK, FT4, TSH, LD6, HBA1C, LACPYR, AAQTPL, GADCAB, CARNPL, PLTHY ####[facility] [address], [place] [phone]#### CASRFX , LG1RFX, PARNEO #### [facility] [place], [place] [phone] Carnitine Review Reviewed by Mayo Collier 07-19 [facility] MD Kayode, PhD Marcell jang (03545) ([id number]) Comment: Performed By: #### CK, FT4, TSH, LD6, HBA1C, LACPYR, AAQTPL, GADCAB, CARNPL, PLTHY ####[facility] [address] [place], [place] [phone]#### CASRFX , LG1RFX, PARNEO #### [facility] [place], [place] [phone] Free L-Carnitine 29 22-52 umol/L Normal 07-31-2017 [facility] (06020) Comment: Performed By: #### CK, FT4, TSH, LD6, HBA1C, LACPYR, AAQTPL, GADCAB, CARNPL, PLTHY ####[facility] [place], [place] [phone]#### CASRFX , LG1RFX, PARNEO #### [facility] [place], [place] [phone] Free/Tot Carn Ratio 0.725 0.7-0.9 Normal 07-31-2017 [facility] (29464) Comment: Performed By: #### CK, FT4, TSH, LD6, HBA1C, LACPYR, AAQTPL, GADCAB, CARNPL, PLTHY ####[facility] [place], [place] [phone]#### CASRFX , LG1RFX, PARNEO #### [facility] [place], [place] [phone] Total L-Carnitine 40 27-66 umol/L Normal 07-31-2017 [facility] (38771) Comment: Performed By: #### CK, FT4, TSH, LD6, HBA1C, LACPYR, AAQTPL, GADCAB, CARNPL, PLTHY ####[facility] [address] [place], [place] [phone]#### CASRFX , LG1RFX, PARNEO #### [facility] [place], [place] [phone] amino acids quant,pl on 2017-07-31 Alanine 389 177-583 um/L Normal 07-31-2017 [facility] (43236) Comment: Performed By: #### CK, FT4, TSH, LD6, HBA1C, LACPYR, AAQTPL, GADCAB, CARNPL, PLTHY ####[facility] [place], [place] [phone]#### CASRFX , LG1RFX, PARNEO #### [facility] [place], [place] [phone] Alloisoleucine 0 0-2 um/L Normal 07-31-2017 [facility] (62924) Comment: Performed By: #### CK, FT4, TSH, LD6, HBA1C, LACPYR, AAQTPL, GADCAB, CARNPL, PLTHY ####[facility] [place], [place] [phone]#### CASRFX , LG1RFX, PARNEO #### [facility] [place], [place] [phone] Alpha-aminoadipic Ac 0 0-6 um/L Normal 7 [facility] (21350) Comment: Performed By: #### CK, FT4, TSH, LD6, HBA1C, LACPYR, AAQTPL, GADCAB, CARNPL, PLTHY ####[facility] [address] [place], [place] [phone]#### CASRFX , LG1RFX, PARNEO #### [facility] [place], [place] [phone] Review Reviewed by Argentina Normal 07-31-2017 [facility] Jodee, Ph.D. Suman case (83387) Comment: Performed By: #### CK, FT4, TSH, LD6, HBA1C, LACPYR, AAQTPL, GADCAB, CARNPL, PLTHY ####[facility] [address] [place], [place] [phone]#### CASRFX , LG1RFX, PARNEO #### [facility] [place], [place] [phone] Arginine 19 15-128 um/L Normal 07-31-2017 [facility] (59641) Comment: Performed By: #### CK, FT4, TSH, LD6, HBA1C, LACPYR, AAQTPL, GADCAB, CARNPL, PLTHY ####[facility] [address] [place], [place] [phone]#### CASRFX , LG1RFX, PARNEO #### [facility] [place], [place] [phone] Asparagine 30 35-74 um/L Low 07-31-2017 [facility] (30142) Comment: Performed By: #### CK, FT4, TSH, LD6, HBA1C, LACPYR, AAQTPL, GADCAB, CARNPL, PLTHY ####[facility] [address] [place], [place] [phone]#### CASRFX , LG1RFX, PARNEO #### [facility] [place], [place] [phone] Aspartic Acid 6 1-25 um/L Normal 07-31-2017 [facility] (10265) Comment: Performed By: #### CK, FT4, TSH, LD6, HBA1C, LACPYR, AAQTPL, GADCAB, CARNPL, PLTHY ####[facility] [address] [place], [place] [phone]#### CASRFX , LG1RFX, PARNEO #### [facility] [place], [place] [phone] Citrulline 24 12-55 um/L Normal 07-31-2017 [facility] (70844) Comment: Performed By: #### CK, FT4, TSH, LD6, HBA1C, LACPYR, AAQTPL, GADCAB, CARNPL, PLTHY ####[facility] [address] [place], [place] [phone]#### CASRFX , LG1RFX, PARNEO #### [facility] [place], [place] [phone] Cystine 42 5-82 um/L Normal 07-31-2017 [facility] (11169) Comment: Performed By: #### CK, FT4, TSH, LD6, HBA1C, LACPYR, AAQTPL, GADCAB, CARNPL, PLTHY ####[facility] [address] [place], [place] [phone]#### CASRFX , LG1RFX, PARNEO #### [facility] [place], [place] [phone] Glutamic Acid 130 10-131 um/L Normal 07-31-2017 [facility] (24430) Comment: Performed By: #### CK, FT4, TSH, LD6, HBA1C, LACPYR, AAQTPL, GADCAB, CARNPL, PLTHY ####[facility] [address] AveCohio state east hospitalandC[place], [place] [phone]#### CASRFX , LG1RFX, PARNEO #### [facility] [place] [phone] Glutamine 391 205-756 um/L Normal 07-31-2017 [facility] (95132) Comment: Performed By: #### CK, FT4, TSH, LD6, HBA1C, LACPYR, AAQTPL, GADCAB, CARNPL, PLTHY ####[facility] [address], [place] [phone]#### CASRFX , LG1RFX, PARNEO #### [facility] [place], [place] [phone] Glycine 139 151-490 um/L Low 07-31-2017 [facility] (60526) Comment: Performed By: #### CK, FT4, TSH, LD6, HBA1C, LACPYR, AAQTPL, GADCAB, CARNPL, PLTHY ####[facility] [address], [place] [phone]#### CASRFX , LG1RFX, PARNEO #### [facility] [place], [place] [phone] Histidine 55 72-124 um/L Low 07-31-2017 [facility] (61446) Comment: Performed By: #### CK, FT4, TSH, LD6, HBA1C, LACPYR, AAQTPL, GADCAB, CARNPL, PLTHY ####[facility] [address], [place] [phone]#### CASRFX , LG1RFX, PARNEO #### [facility] [place], [place] [phone] Hydroxylysine 1 0 um/L High 07-31-2017 [facility] (09489) Comment: Performed By: #### CK, FT4, TSH, LD6, HBA1C, LACPYR, AAQTPL, GADCAB, CARNPL, PLTHY ####[facility] [place], [place] [phone]#### CASRFX , LG1RFX, PARNEO #### [facility] [place], [place] [phone] Hydroxyproline 10 0-53 um/L Normal 07-31-2017 [facility] (54860) Comment: Performed By: #### CK, FT4, TSH, LD6, HBA1C, LACPYR, AAQTPL, GADCAB, CARNPL, PLTHY ####[facility] [place], [place] [phone]#### CASRFX , LG1RFX, PARNEO #### [facility] [place], [place] [phone] Interpretation (NOTE) Normal 07-31-2017 [facility] (35075) Comment: Result Comment: THIS PLASMA AMINO ACID ANALYSIS SHOWS LOW LEVELS OF SEVERAL AMINOACIDS SUGGESTING REDUCE D DIETARY AMINO ACID INTAKE. Date of Analysis:08/02/17 Date of Re view: 08/02/17 Reference intervals from Veronica Thrasher, Christina MG, Floyd GEORGE, marsha CROCKER: Biochemical Genetics: A Laboratory Manual, Copyright 1989 by [facility] [employer] Reference intervals not established for some ami no acids. This test was developed and its performance characteristics determined by [facility]'s Jenny العلي [facility]ology and [facility] ([facility]). It has not been cleared or approved by the FDA. -[facility] is regulated under CLIA as qualified to perform high-co mplexity testing. This test is used for clinical purposes. It should not be r egarded as investigational or for research. Performed By: #### CK, FT4, TSH, LD6, HBA1C, LACPYR, AAQTPL, GADCAB, CARNPL, PLTHY ####[facility] [address], [place] [phone]#### CASRFX , LG1RFX, PARNEO #### [facility] [place], [place] [phone] Isoleucine 51 30-108 um/L Normal 07-31-2017 [facility] (71370) Comment: Performed By: #### CK, FT4, TSH, LD6, HBA1C, LACPYR, AAQTPL, GADCAB, CARNPL, PLTHY ####[facility] [address], [place] [phone]#### CASRFX , LG1RFX, PARNEO #### [facility] [place], [place] [phone] Leucine 83 72-201 um/L Normal 07-31-2017 [facility] (99369) Comment: Performed By: #### CK, FT4, TSH, LD6, HBA1C, LACPYR, AAQTPL, GADCAB, CARNPL, PLTHY ####[facility] [address] [place], [place] [phone]#### CASRFX , LG1RFX, PARNEO #### [facility] [place], [place] [phone] Lysine 116 116-296 um/L Normal 07-31-2017 [facility] (38404) Comment: Performed By: #### CK, FT4, TSH, LD6, HBA1C, LACPYR, AAQTPL, GADCAB, CARNPL, PLTHY ####[facility] [address], [place] [phone]#### CASRFX , LG1RFX, PARNEO #### [facility] [place], [place] [phone] Methionine 13 10-42 um/L Normal 07-31-2017 [facility] (22975) Comment: Performed By: #### CK, FT4, TSH, LD6, HBA1C, LACPYR, AAQTPL, GADCAB, CARNPL, PLTHY ####[facility] [address], [place] [phone]#### CASRFX , LG1RFX, PARNEO #### [facility] [place], [place] [phone] Ornithine 73 48-195 um/L Normal 07-31-2017 [facility] (19003) Comment: Performed By: #### CK, FT4, TSH, LD6, HBA1C, LACPYR, AAQTPL, GADCAB, CARNPL, PLTHY ####[facility] [address] [place], [place] [phone]#### CASRFX , LG1RFX, PARNEO #### [facility] [place], [place] [phone] Phenylalanine 49 35-85 um/L Normal 07-31-2017 [facility] (46810) Comment: Performed By: #### CK, FT4, TSH, LD6, HBA1C, LACPYR, AAQTPL, GADCAB, CARNPL, PLTHY ####[facility] [address] [place], [place] [phone]#### CASRFX , LG1RFX, PARNEO #### [facility] [place], [place] [phone] Proline 229 97-329 um/L Normal 07-31-2017 [facility] (30287) Comment: Performed By: #### CK, FT4, TSH, LD6, HBA1C, LACPYR, AAQTPL, GADCAB, CARNPL, PLTHY ####[facility] [address] [place], [place] [phone]#### CASRFX , LG1RFX, PARNEO #### [facility] [facility] RoadKana pittmanLeipsic, [place] [phone] Sarcosine 0 0 um/L Normal 07-31-2017 [facility] (58682) Comment: Performed By: #### CK, FT4, TSH, LD6, HBA1C, LACPYR, AAQTPL, GADCAB, CARNPL, PLTHY ####[facility] [address], [place] [phone]#### CASRFX , LG1RFX, PARNEO #### [facility] [place], [place] [phone] Serine 59 58-181 um/L Normal 07-31-2017 [facility] (13042) Comment: Performed By: #### CK, FT4, TSH, LD6, HBA1C, LACPYR, AAQTPL, GADCAB, CARNPL, PLTHY ####[facility] [address] [place], [place] [phone]#### CASRFX , LG1RFX, PARNEO #### [facility] [place], [place] [phone] Taurine 61 54-210 um/L Normal 07-31-2017 [facility] (78529) Comment: Performed By: #### CK, FT4, TSH, LD6, HBA1C, LACPYR, AAQTPL, GADCAB, CARNPL, PLTHY ####[facility] [address] [place], [place] [phone]#### CASRFX , LG1RFX, PARNEO #### [facility] [place], [place] [phone] Threonine 59 60-225 um/L Low 07-31-2017 [facility] (52813) Comment: Performed By: #### CK, FT4, TSH, LD6, HBA1C, LACPYR, AAQTPL, GADCAB, CARNPL, PLTHY ####[facility] [place], [place] [phone]#### CASRFX , LG1RFX, PARNEO #### [facility] [place], [place] [phone] Tyrosine 51 34-112 um/L Normal 07-31-2017 [facility] (68816) Comment: Performed By: #### CK, FT4, TSH, LD6, HBA1C, LACPYR, AAQTPL, GADCAB, CARNPL, PLTHY ####[facility] [place], [place] [phone]#### CASRFX , LG1RFX, PARNEO #### [facility] [place], [place] [phone] Valine 175 119-336 um/L Normal 07-31-2017 [facility] (11602) Comment: Performed By: #### CK, FT4, TSH, LD6, HBA1C, LACPYR, AAQTPL, GADCAB, CARNPL, PLTHY ####[facility] [place], [place] [phone]#### CASRFX , LG1RFX, PARNEO #### [facility] [place], [place] [phone] nm gastric emptying solid on 2017-07-19 NM GASTRIC Performed at [facility] APPROVED BY: [facility] Rodolfo Azar MD ([id number]) EXAMINATION: NM GASTRIC EMPTYING STUDY EXAM DATE: 07/19/2017 at 0826 hours. CLINICAL INDICATION/HISTORY: Nausea and vomiting. COMPARISON: None available. TECHNIQUE: Following the oral ingestion of 1.09 millicuries of 99m Technetium sulfur colloid mixed with a standardized egg meal imaging over the abdomen was obtained in the anterior and posterior projections at zero minutes, 30 minutes, 60 minutes, two hours and 4 hours post ingestion. Geometric mean percent counts were obtained. FINDINGS: At 30 minutes post ingestion, there is 93% gastric retention (normal is greater than 70%). At 60 minutes post ingestion, there is 84% gastric retention (normal is between 30 and 90%). At two hours post ingestion, there is 71% gastric retention (normal is less than 60%). On the 4 hour delayed image, there is 37% percent gastric retention (normal is less than 10%). The time for the stomach to empty 50% of the contents of the stomach is 196 minutes (normal gastric half emptying time for solids is approximately 77 minutes + / -32 minutes). IMPRESSION: Markedly delayed solid gastric emptying. Encounters Date Type Reason Provider Location 07-19-2017 - Ambulatory Nausea with HARVEY FAJARDO [facility] 07-20-2017 vomiting, [facility] unspecified ([id number]) 07-08-2017 Ambulatory [place] Facility:[facility] 03-29-2020 - Patient encounter External [facility] 03-29-2020 procedure Provider 08-31-2018 Patient encounter [facility] - Facility:[facility] procedure [facility] 07-23-2018 - Patient encounter AYANA LOPEZ) [facility] 07-23-2018 procedure [facility] (0000 0) 05-23-2018 - Patient encounter [facility] 05-26-2018 procedure [place] (0000 0) 12-31-2017 - Patient encounter MUKUL Luis JARETT Villatoroa [facility] 12-31-2017 procedure [place] (0000 0) 12-31-2017 - Patient encounter MUKUL Luis STEVEN Juwanvela [facility] 12-31-2017 procedure [place] (0000 0) 12-31-2017 - Patient encounter MUKUL Villatoroa [facility] 01-01-2018 procedure [place] (0000 0) 12-18-2017 - Patient encounter MUKUL Luis Echeverrianemoa [facility] 12-18-2017 procedure YOU JOHNSON [place] (0000 0) DARYL 10-22-2017 - Patient encounter MUKUL Echeverrianemoa [facility] 10-22-2017 procedure MUKUL Luis STEVEN [place] (0 0000) 10-11-2017 - Patient encounter MUKUL Villatoroa [facility] 10-11-2017 procedure [place] (0000 0) 07-31-2017 - Patient encounter [facility]UL MANCILLAPrice [facility] 08-08-2017 procedure HARVEYRADHA FAJARDO [place] (0000 0) BUCKY GUILLORY MUKUL Banuelos JARETT 03-29-2020 Results Only External External-NonCCF Provider Procedures Procedure Name Date Provider Location EXTERNAL IMAGING 03-29-2020 External Provider [facility] (75059) Mammography 12-31-2017 [facility] (27351) Plan of Treatment Plan Description Date Location INFLUENZA (#1) INFLUENZA (#1) 2020 [facility] (13453) ADVANCE DIRECTIVE ADVANCE DIRECTIVE 2019 [facility] inic DISCUSSION DISCUSSION (76190) BONE DENSITY BONE DENSITY 2019 [facility] (47904) PNEUMOVAX AGE 65 AND OVER PNEUMOVAX AGE 65 AND OVER 2019 [facility] WITH 5YR LOOKBACK (#1) WITH 5YR LOOKBACK (#1) (5 9718) MAMMOGRAM MAMMOGRAM 12-31-2018 [facility] (48930) COLORECTAL CANCER COLORECTAL CANCER 06-19-2018 [facility] inic SCREENING,SEE MODIFIER SCREENING,SEE MODIFIER (9 7308) HBA1C HBA1C 10-29-2017 [facility] (45434) LDL CHOLESTEROL LDL CHOLESTEROL 11-12-2015 [facility] (89036) SHINGRIX VACCINE (1 of 2) SHINGRIX VACCINE (1 of 2) 2004 [facility] (89812) DTAP,TDAP,TD (1 - Tdap) DTAP,TDAP,TD (1 - Tdap) 1973 [facility] (54925) ANNUAL PCP TEAM CHRONIC ANNUAL PCP TEAM CHRONIC 1972 [facility] DISEASE VISIT DISEASE VISIT (29007) HEPATITIS C SCREENING HEPATITIS C SCREENING 1972 [facility] (27197) HIV SCREENING HIV SCREENING 1972 [facility] (74810) DIABETIC FOOT EXAM DIABETIC FOOT EXAM 1964 [facility] (62822) URINE ALBUMIN:CREATININE URINE ALBUMIN:CREATININE 1964 [facility] RATIO RATIO (46349) DILATED RETINAL EXAM DILATED RETINAL EXAM 1964 [facility] (63847) Payers Payer Name Policy Number Location [employer]THEM BLUE CROSS AND BLUE [employer] [id number] [facility] ([id number]) DARIAN LAMAR [facility] [id number] [facility] (35393) The following information is from the original human readable contentNo Payer Records FoundNo Payer Records FoundNo Payer Records FoundNo Payer Records FoundNo Payer Records FoundNo Payer Records FoundNo Payer Records Found Social History Type Social History Description Date Locat ion Tobacco smoking status Never smoker 07-23-2018 [facility] (71050) NHIS Tobacco use and exposure Never used 07-23-[address] [facility] (07492) Alcohol intake Current non-drinker of 07-23-2018 [facility] ([id number]) alcohol (finding) Sex Assigned At Not on file [facility] ([id number]) The following information is from the original human readable contentNo Social History Records FoundNo Social History Records FoundNo Social History Records FoundNo Social History Records FoundNo Social History Records FoundNo Social History Records FoundNo Social History Records FoundNo Social History Records FoundNo Social History Records Found Summary Purpose Family History No Family History Records FoundNo Family History Records FoundNo Family History Records FoundNo Family History Records FoundNo Family History Records Found Advance Directives No Advanced Directives Records FoundNo Advanced Directives Records FoundNo Advanced Directives Records FoundNo Advanced Directives Records FoundNo Advanced Directives Records Found Additional Source Comments FOR RECORDS PERTAINING TO PATIENTS WHO ARE OR HAVE BEEN ENROLLED IN A CHEMICAL DEPENDENCY/SUBSTANCE ABUSE PROGRAM, SOME INFORMATION MAY BE OMITTED. This clinical summary was aggregated from multiple sources. Caution should be exercised in using it in the provision of clinical care. This summary normalizes information from multiple sources, and as a consequence, information in this document may materially changethe coding, format and clinical context of patient data. In addition, data may be omittedin some cases. CLINICAL DECISIONS SHOULD BE BASED ON THE PRIMARY CLINICAL RECORDS. [facility] provides no warranty or guarantee of the accuracy or completeness of information in this document. UNRECOGNIZED CONTENT PROVIDED BELOW FOR UNRECOGNIZED SECTION INFORMATION SOURCE DATE CREATED AUTHOR AUTHOR'S ORGANIZATIO N 02/11/2018 [facility] DATE CREATED AUTHOR AUTHOR'S ORGANIZATIO N 02/11/2018 [facility] DATE CREATED AUTHOR AUTHOR'S ORGANIZATIO N 07/29/2018 [facility] DATE CREATED AUTHOR AUTHOR'S ORGANIZATIO N 09/03/2018 [facility] DATE CREATED AUTHOR AUTHOR'S ORGANAAMIRATIO N 05/20/2020 [facility] [place] at[place] ([place]) UNRECOGNIZED CONTENT PROVIDED BELOW FOR UNRECOGNIZED SECTION Source Comments In the event this information is protected by the Federal Confidentiality of Alcohol and Drug Abuse Patient Records regulations: The Federal rules restrict any use of the information to criminally investigate or prosecute any alcohol or drug abuse patient.[facility]
--- OUTSIDE RECORDS SUMMARY | 2020-05-31 16:46 | XMS RPT_ITS | CCD ---
:1955 External Reference #:[id number] Author Organization [facility] Care Team Providers Name Role Phone NELSON [...] S Unavailable Unavailable SHAHEEN (RN) Unavailable Unavailable [facility] Clinical [facility] Attending Unavailable Rui Parsk Primary Care Provider Allergies Reported Allergen Reaction(s) Severity Date of Location Onset ciprofloxacin Rash Unknown, 06-10-2013 - [facility] ic Translations: [ Moderate Other [place] CIPROFLOXACIN, Repository CIPROFLOXACIN, CIPROFLOXACIN] cyclobenzaprine Rash Unknown, 06-10-2013 - Spray Cl inic Translations: [ Moderate Other [place] CYCLOBENZAPRINE, Repository CYCLOBENZAPRINE, CYCLOBENZAPRINE] ketorolac Translations: Other: See Unknown, High 03-22-2006 - [facility] [ KETOROLAC, KETOROLAC, Comments Ot r [place] KETOROLAC] Repository metFORMIN Translations: Other: See 06-28-2017 - [facility] [ METFORMIN, METFORMIN, Comments Ot r [place] METFORMIN] Repository Sulfamethoxazole / Hives Unknown, High 07-31-2017 - [facility] Trimethoprim Main [place] Translations: [ Repository SULFAMETHOXAZOLE-TRIMET HOPRIM] OTHER Translations: [ 05-27-2007 - [facility] OTHER, OTHER, OTHER] Other C ampus Repository Medications Medication Name Sig Date Prescriber Location Allopurinol allopurinol (ZYLOPRIM) [facility] Provider [facility] 100 mg tablet Take 100 Provider (4419 5) mg by mouth once daily. 0 Active Comment: Take 100 mg by mouth once da jeffy. Aspirin aspirin, enteric coated [facility] Provider [facility] ([id number]) (ASPIRIN, ENTERIC COATED) Provider 81 mg EC tablet Take 81 mg by mouth once daily. 0 Active Comment: Take 81 mg by mouth once [place]otty [place]. Haloperidol haloperidol (HALDOL) 0.5 [facility] Provider [facility] mg tablet Take 0.5 mg by Provider (41 195) mouth twice daily. 0 Active Comment: Take 0.5 mg by mouth twice d aily. HYDROCODONE HYDROCODONE [facility] Provider [facility] linic BIT/ACETAMINOPHEN BIT/ACETAMINOPHEN Provider (2329 5) (VICODIN ORAL) (VICODIN ORAL) Take by mouth. 0 Active Comment: Take by mouth. insulin degludec INSULIN DEGLUDEC (TRESIBA Ccf Provide r [facility] FLEXTOUCH U-100 Provider (52139) SUBCUTANEOUS) Inject 120 mg subcutaneously once daily. 0 Active Comment: Inject 120 mg subcutaneously once daily. lamoTRIgine lamoTRIgine (LAMICTAL) 100 [facility] Provider [facility] mg tablet Take 100 mg by Provider (81 533) mouth twice daily. 0 Active Comment: Take 100 mg by mouth twice d aily. levothyroxine Levothyroxine 50 mcg cap C[facility] Provider [facility] Take by mouth once daily. Provider (5 7782) 0 Active Comment: Take by mouth once daily. Methadone methadone (DOLOPHINE) 5 mg [facility] Provider [facility] (78441) tablet Take 10 mg by mouth Provider once daily. At bedtime 0 Active Comment: Take 10 mg by mouth once scotty ly. At bedtime montelukast montelukast (SINGULAIR) 10 [facility] Provider [facility] mg tablet Take 10 mg by Provider (736 95) mouth daily at bedtime. 0 Active Comment: Take 10 mg by mouth daily at bedtime. Morphine morphine IR 15 mg tablet [facility] Provider [facility] (00845) Take 15 mg by mouth every Provider 4 hours as needed. 0 Active Comment: Take 15 mg by mouth every 4 hours as needed. naloxegol naloxegol (MOVANTIK) 25 mg [facility] Provider C [facility] (23063) tablet Take 25 mg by mouth Provider once daily. 0 Active Comment: Take 25 mg by mouth once scotty ly. Omeprazole Omeprazole 40 mg capsule [facility] Provider [facility] (91450) Take 40 mg by mouth once Provider daily. 0 Active Comment: Take 40 mg by mouth once scotty ly. Ondansetron ondansetron orally 03-03-2018 [facility] disintegrating (ZOFRAN [facility] (4 6071) ODT) 8 mg disintegrating tablet Take 1 tablet by mouth every 8 hours as needed. 90 tablet 6 03/03/2018 Active Comment: Take 1 tablet by mouth every 8 hours as needed. pregabalin pregabalin (LYRICA) 75 mg [facility] Provider [facility] (73262) capsule Take 150 mg by Provider mouth twice daily. 0 Active Comment: Take 150 mg by mouth twice d aily. Promethazine promethazine (PHENERGAN) 12-18-2017 [facility] 25 mg tablet Take 1 (87544) tablet by mouth every 8 hours as needed (for nausea). 90 tablet 6 12/18/2017 Active promethazine (PHENERGAN) 25 mg tablet Take 25 Cc [facility] (25024) mg by mouth three times daily. 0 Active Comment: Take 25 mg by mouth three ti mes daily. Take 1 tablet by mouth every 8 hours as needed (for nausea). rOPINIRole rOPINIRole 1 mg tablet [facility] Provider [facility] (57583) Take 1 mg by mouth once Provider daily. 0 Active Comment: Take 1 mg by mouth once alicia y. Sertraline sertraline (ZOLOFT) 100 [facility] Provider [facility] (82147) mg tablet Take 100 mg by Provider mouth once daily. 0 Active Comment: Take 100 mg by mouth once da jeffy. Simvastatin simvastatin 40 mg tablet [facility] Provider [facility] Take 40 mg by mouth daily Provider (4 2992) at bedtime. 0 Active Comment: Take 40 mg by mouth daily at bedtime. valsartan valsartan (DIOVAN) 80 mg [facility] Provider [facility] (83410) tablet Take 80 mg by Provider mouth once daily. 0 Active Comment: Take 80 mg by mouth once scotty ly. Problems Active Problems Category Problem Name Status Date Location Unclassified Active 08-31-2018 - [facility] [place] ([address]041) Unclassified Unknown / UNK(Unknown) Active 07-19-2017 - [facility] (11086) Past or Other Problems Category Problem Name Status Date Location Nausea and vomiting Nausea with vomiting, Completed 02-17-2015 - [facility] (02637) Other disorders of [facility]rop[facility] stomach and duod[facility] (96169) Other gastrointestinal Diarrhea Completed 05-27-2007 - [facility] disorders (96585) Other nervous system Other disorders of Completed 12-31-2017 - C [facility] disorders nervous system Spray (00 000) Tuberculosis Nodular tuberculosis Com[facility] (19365[facility] Results Result Name Value Range Unit Interpretation Flag Date Location cmp on 2020-05-19 Albumin [Mass/Vol] 3.3 3.4-4.8 G/dL Low 05-19-2020 [facility] ([place] ([address]60) Comment: Performed By: #### GFR, BMP, PBNP, TROP #### [address] [address] #### ANEU, ADIFF, CBC #### [address] [address] Albumin/Globulin [Mass ratio] 0.8 1.1-2.5 ratio Low 05-19-2020 [facility] ([place] (80811) Comment: Performed By: #### GFR, BMP, PBNP, TROP #### [address] [address] #### ANEU, ADIFF, CBC #### [address] [address] ALP [Catalytic activity/Vol] 194 40-135 U/L High 1 [facility] ([place] (0000 0) Comment: Performed By: #### GFR, BMP, PBNP, TROP #### [address] [address] #### ANEU, ADIFF, CBC #### [address] [address] ALT [Catalytic activity/Vol] 27 14-59 U/L Normal 1 [facility] ([place] (0000 0) Comment: Performed By: #### GFR, BMP, PBNP, TROP #### [place] [address] #### ANEU, ADIFF, CBC #### [address] [address] AST [Catalytic activity/Vol] 18 10-40 U/L Normal 1 [facility] ([place] (0000 0) Comment: Performed By: #### GFR, BMP, PBNP, TROP #### [place] [address] #### ANEU, ADIFF, CBC #### [address] [address] Bili Total 0.7 0.2-1.0 mg/dL Normal 05-19-2020 [facility] ([place] (73533) Comment: Result Comment: Use of this assay is not recommended for patients undergoing treatment with eltrombopag d ue to the potential for falsely elevated results. Performed By: #### GFR, BMP, PBNP, TROP #### [place] [address] #### ANEU, ADIFF, CBC #### [address] [address] Calcium [Mass/Vol] 9.5 8.4-10.2 mg/dL Normal 05-19-2020 [facility] ([place] (0000 0) Comment: Performed By: #### GFR, BMP, PBNP, TROP #### [place] [address] #### ANEU, ADIFF, CBC #### [address] [address] Chloride [Moles/Vol] 99 98-107 mmol/L Normal 0 [facility] ([place] (0000 0) Comment: Performed By: #### GFR, BMP, PBNP, TROP #### [address] [address] #### ANEU, ADIFF, CBC #### [address] [address] CO2 [Moles/Vol] 27 23-31 mmol/L Normal 05-19-2020 [facility] ([place]) (02331) Comment: Performed By: #### GFR, BMP, PBNP, TROP #### [place] [address] #### ANEU, ADIFF, CBC #### [address] [address] Creatinine [Mass/Vol] 1.21 0.55-1.02 mg/dL High 05-19-20 [facility] ([place] (0000 0) Comment: Performed By: #### GFR, BMP, PBNP, TROP #### [place] [address] #### ANEU, ADIFF, CBC #### [address] [address] Electrolyte Balance 9.0 mEq/L Normal 05-19-2020 [facility] ([place] (97930) Comment: Performed By: #### GFR, BMP, PBNP, TROP #### [place] [address] #### ANEU, ADIFF, CBC #### [address] [address] Globulin (S) [Mass/Vol] 3.9 G/dL Normal 2019 [facility] ([place] (38039) Comment: Performed By: #### GFR, BMP, PBNP, TROP #### [place] [address] #### ANEU, ADIFF, CBC #### [address] [address] Glucose [Mass/Vol] 311 80-115 mg/dL High 05-19-2020 [facility] ([place] (10292) Comment: Performed By: #### GFR, BMP, PBNP, TROP #### [place] [address] #### ANEU, ADIFF, CBC #### [address] [address] Potassium [Moles/Vol] 4.8 3.5-5.1 mmol/L Normal 05-19-20 [facility] ([place] (0000 0) Comment: Performed By: #### GFR, BMP, PBNP, TROP #### [place] [address] #### ANEU, ADIFF, CBC #### [address] [address] Protein [Mass/Vol] 7.2 6.4-8.2 G/dL Normal 05-19-2020 [facility] ([place] (63617) Comment: Performed By: #### GFR, BMP, PBNP, TROP #### [place] [address] #### ANEU, ADIFF, CBC #### [address] [address] Sodium [Moles/Vol] 135 136-145 mmol/L Low 05-19-2020 [facility] ([place] (71934) Comment: Performed By: #### GFR, BMP, PBNP, TROP #### [place] [address] #### ANEU, ADIFF, CBC #### [address] [address] Urea nitrogen [Mass/Vol] 18 7-18 mg/dL Normal 05-19 [facility] ([place] (0000 0) Comment: Performed By: #### GFR, BMP, PBNP, TROP #### [place] [address] #### ANEU, ADIFF, CBC #### [address] [address] Urea nitrogen/Creatinine [Mass 15 7-27 ratio Normal 05-19-2020 [facility]] [facility] ([place] ([address]18) Comment: Performed By: #### GFR, BMP, PBNP, TROP #### [address] [address] #### ANEU, ADIFF, CBC #### [address] [address] a1c on 2020-05-19 HbA1c (Bld) [Mass fraction] 9.2 4.3-6.4 % High [facility] ([place] (0000 0) Comment: Performed By: #### GFR, BMP, PBNP, TROP #### [place] [address] #### ANEU, ADIFF, CBC #### [address] [address] .gfr on 2020-05-19 GFR 54 ml/min/1.73sqm Normal [facility] ([place] (0000 0) Comment: Result Comment: GFR Population mean for Afri can [place]an, Non- Americans Ages 20-29 = 116 mL/min/1.73 [...] By: #### GFR, BMP, PBNP, TROP #### [address] [address] #### ANEU, ADIFF, CBC #### [address] [address] GFR Non- 45 ml/min/1.73sqm Normal 05-19-2020 [facility] ([place] (68389) Comment: Result Comment: GFR Population mean for Afri can [place], Non- Americans Ages 20-29 = 116 mL/min/1.73 [...] By: #### GFR, BMP, PBNP, TROP #### [place] [address] #### ANEU, ADIFF, CBC #### [address] [address] bmp on 2020-03-21 Calcium [Mass/Vol] 9.6 8.4-10.2 mg/dL Normal 03-21-2020 [facility] ([place] (0000 0) Comment: Performed By: #### GFR, BMP, PBNP, TROP #### [place] [address] #### ANEU, ADIFF, CBC #### [address] [address] Chloride [Moles/Vol] 96 98-107 mmol/L Low 0 [facility] ([place] (55175) Comment: Performed By: #### GFR, BMP, PBNP, TROP #### [place] [address] #### ANEU, ADIFF, CBC #### [address] [address] CO2 [Moles/Vol] 27 23-31 mmol/L Normal 03-21-2020 [facility] ([place] (36962) Comment: Performed By: #### GFR, BMP, PBNP, TROP #### [place] [address] #### ANEU, ADIFF, CBC #### [address] [address] Creatinine [Mass/Vol] 1.42 0.55-1.02 mg/dL High 03-21-20 20 [facility] ([place] (0000 0) Comment: Performed By: #### GFR, BMP, PBNP, TROP #### [place] [address] #### ANEU, ADIFF, CBC #### [address] [address] Electrolyte Balance 11.0 mEq/L Normal 03-21-2020 [facility] ([place] (59299) Comment: Performed By: #### GFR, BMP, PBNP, TROP #### [place] [address] #### ANEU, ADIFF, CBC #### [address] [address] Glucose [Mass/Vol] 397 80-115 mg/dL High 03-21-2020 [facility] ([place]) (59441) Comment: Performed By: #### GFR, BMP, PBNP, TROP #### [place] [address] #### ANEU, ADIFF, CBC #### [address] [address] Potassium [Moles/Vol] 4.8 3.5-5.1 mmol/L Normal 03-21-20 20 [facility] ([place] (0000 0) Comment: Performed By: #### GFR, BMP, PBNP, TROP #### [place] [address] #### ANEU, ADIFF, CBC #### [address] [address] Sodium [Moles/Vol] 134 136-145 mmol/L Low 03-21-2020 [facility] ([place] (26288) Comment: Performed By: #### GFR, BMP, PBNP, TROP #### [place] [address] #### ANEU, ADIFF, CBC #### [address] [address] Urea nitrogen [Mass/Vol] 18 7-18 mg/dL Normal 03-21 [facility] ([place] (0000 0) Comment: Performed By: #### GFR, BMP, PBNP, TROP #### [address] [address] #### ANEU, ADIFF, CBC #### [address] [address] Urea nitrogen/Creatinine [Mass 13 7-27 ratio Normal 03-21-2020 [facility]] [facility] ([place] ([address]49) Comment: Performed By: #### GFR, BMP, PBNP, TROP #### [address] [address] #### ANEU, ADIFF, CBC #### [address] [address] .gfr on 2020-03-21 GFR 45 ml/min/1.73sqm Normal 08 [facility] ([place] (0000 0) Comment: Result Comment: GFR Population mean for Afri can [place]an, Non- Americans Ages 20-29 = 116 mL/min/1.73 [...] By: #### GFR, BMP, PBNP, TROP #### [address] [address] #### ANEU, ADIFF, CBC #### [address] [address] GFR Non- 37 ml/min/1.73sqm Normal 03-21-2020 [facility] ([place] (85095) Comment: Result Comment: GFR Population mean for Afri can [place], Non- Americans Ages 20-29 = 116 mL/min/1.73 [...] By: #### GFR, BMP, PBNP, TROP #### [facility] [address] [place] [address] #### ANEU, ADIFF, CBC #### [place] [id number] [place], [place] [address] nm bone imaging whole body on 2020-03-01 NM BONE IMAGING ORIGINAL Normal 03-01-2020 [facility] WHOLE BODY EXAM: NM BONE IMAGING WHOLE BODY 02/29/2020 1:37 PM [facility] ([place] ([id number]) HISTORY: LEFT posterior late ral ribs/chest wall [...] lund on 2020-02-26 AISLINN . Normal 02-26-2020 [facility] MICRO - Microbiology [facility] ([place] ([id number]) PROCEDURE: Urine Culture [*1] SOURCE: Urine, Clean Catch BODY SITE: COLLECTED DATE/TIME: 02/24/2020 22:39 EDT RECEIVED DATE/TIME: 02/25/2020 15:49 EDT START DATE/TIME: 02/25/2020 15:49 EDT FREE TEXT SOURCE: FINAL REPORTS Final Report [] Verified Date/Time/Personnel: 02/26/2020 14:46 EDT 10,000 - 50,000 cfu/ml Multiple bacterial morphotypes present. Probable Contamination. Suggest recollection if clinically indicated. Performing Locations *1: This test was performed at: [address], [address] , [place] Comment: Performed By: #### GFR, BMP, PBNP, TROP #### [address] [address] #### ANEU, ADIFF, CBC #### [address] [address] ua on 2020-02-25 Color (U) Yellow Normal 02-25-2020 [facility] ([facility] ([address]406) Comment: Performed By: #### GFR, BMP, PBNP, TROP #### [address] [address] #### ANEU, ADIFF, CBC #### [address] [address] Glucose (U) [Mass/Vol] 500 Negative mg/dL Abnormal 020 [facility] ([place] ([address]32) Comment: Performed By: #### GFR, BMP, PBNP, TROP #### [address] [address] #### ANEU, ADIFF, CBC #### [address] [address] Ketones Ql (U) Negative Negative Normal 02-25-2020 [facility] ([place]) (41212) Comment: Performed By: #### GFR, BMP, PBNP, TROP #### [address] [address] #### ANEU, ADIFF, CBC #### [address] [address] UA Appear Clear Clear Normal 02-25-2020 [facility] ([place] (68704) Comment: Performed By: #### GFR, BMP, PBNP, TROP #### [place] [address] #### ANEU, ADIFF, CBC #### [address] [address] UA Blood Trace Negative Abnormal 02-25-2020 [facility] ([place] (10474) Comment: Performed By: #### GFR, BMP, PBNP, TROP #### [place] [address] #### ANEU, ADIFF, CBC #### [address] [address] UA Leuk Est Negative Negative Normal 02-25-2020 [facility] ([place] (41235) Comment: Performed By: #### GFR, BMP, PBNP, TROP #### [place] [address] #### ANEU, ADIFF, CBC #### [address] [address] UA Nitrite Negative Negative Normal 02-25-2020 [facility] ([place] (45320) Comment: Performed By: #### GFR, BMP, PBNP, TROP #### [place] [address] #### ANEU, ADIFF, CBC #### [address] [address] UA pH 7.0 5.0 - 8.0 Normal 02-25-2020 [facility] ([place] (16346) Comment: Performed By: #### GFR, BMP, PBNP, TROP #### [place] [address] #### ANEU, ADIFF, CBC #### [address] [address] UA Protein Trace Negative Normal 02-25-2020 [facility] ([place] (30285) Comment: Performed By: #### GFR, BMP, PBNP, TROP #### [place] [address] #### ANEU, ADIFF, CBC #### [address] [address] UA Spec Grav 1.020 1.015-1.025 Normal 02-25-2020 [facility] ([place] (81126) Comment: Performed By: #### GFR, BMP, PBNP, TROP #### [place] [address] #### ANEU, ADIFF, CBC #### [address] [address] UA Specimen Type Clean Catch Normal 02-25-2020 [facility] ([place] (37279) Comment: Performed By: #### GFR, BMP, PBNP, TROP #### [place] [address] #### ANEU, ADIFF, CBC #### [address] [address] UA Urobilinogen 0.2 0.2-1.0 E.U./dL Normal 02-25-2020 [facility] ([place] (09821) Comment: Performed By: #### GFR, BMP, PBNP, TROP #### [place] [address] #### ANEU, ADIFF, CBC #### [address] [address] Urobilinogen Qn (U) Negative Negative Normal 02-25-2020 [facility] ([place] (0000 0) Comment: Performed By: #### GFR, BMP, PBNP, TROP #### [address] [address] #### ANEU, ADIFF, CBC #### [address] [address] trop on 2020-02-25 Troponin I.cardiac <0.020 0.000-0.040 ng/mL Normal 0 [facility] [Mass/Vol] [facility] ([place]) ([address]50) Comment: Result Comment: Troponin I r eference range: 0.00-0.040 ng/mL Negative an d non-diagnostic. >0.040 ng/mL Consistent with cardiac damage, increased clinical risk and possibility of myocardial in farction. Serial measurements, a rise & fall in test results, clinical histo ry, appropriate symptoms and/or ECG changes may help assess possibility of [place]. *Other non-acute coronary sy ndrome conditions such as CHF, myoc arditis, pulmonary emboli, sepsis and cardiac surgery could result in myoc ardial damage and increased troponi n levels. Performed By: #### GFR, BMP, PBNP, TROP #### [place] [address] #### ANEU, ADIFF, CBC #### [address] [address] phv on 2020-02-25 pH Venous 7.39 7.31-7.41 Normal 02-25-2020 [facility] ([place]) (74220) Comment: Performed By: #### GFR, BMP, PBNP, TROP #### [place] [address] #### ANEU, ADIFF, CBC #### [address] [address] lip on 2020-02-25 Lipase Level 76 73-393 U/L Normal 02-25-2020 [facility] ([place]) ([address]114) Comment: Performed By: #### GFR, BMP, PBNP, TROP #### [place] [address] #### ANEU, ADIFF, CBC #### [address] [address] cmp on 2020-02-25 Albumin [Mass/Vol] 3.6 3.4-4.8 G/dL Normal 02-25-2020 [facility] ([place] (44571) Comment: Performed By: #### GFR, BMP, PBNP, TROP #### [place] [address] #### ANEU, ADIFF, CBC #### [address] [address] Albumin/Globulin [Mass ratio] 1.0 1.1-2.5 ratio Low 02-25-2020 [facility] ([place] (97846) Comment: Performed By: #### GFR, BMP, PBNP, TROP #### [place] [address] #### ANEU, ADIFF, CBC #### [address] [address] ALP [Catalytic activity/Vol] 192 40-135 U/L High 0 02-25-2020 [facility] ([place] (0000 0) Comment: Performed By: #### GFR, BMP, PBNP, TROP #### [place] [address] #### ANEU, ADIFF, CBC #### [address] [address] ALT [Catalytic activity/Vol] 21 10-35 U/L Normal 0 02-25-2020 [facility] ([place] (0000 0) Comment: Performed By: #### GFR, BMP, PBNP, TROP #### [place] [address] #### ANEU, ADIFF, CBC #### [address] [address] AST [Catalytic activity/Vol] 14 10-40 U/L Normal 0 02-25-2020 [facility] ([place] (0000 0) Comment: Performed By: #### GFR, BMP, PBNP, TROP #### [place] [address] #### ANEU, ADIFF, CBC #### [address] [address] Bili Total 1.0 0.2-1.0 mg/dL Normal 02-25-2020 [facility] ([place] (00115) Comment: Result Comment: Use of this assay is not recommended for patients undergoing treatment with eltrombopag d ue to the potential for falsely elevated results. Performed By: #### GFR, BMP, PBNP, TROP #### [place] [address] #### ANEU, ADIFF, CBC #### [address] [address] Calcium [Mass/Vol] 9.6 8.4-10.2 mg/dL Normal 02-25-2020 [facility] ([place] (0000 0) Comment: Performed By: #### GFR, BMP, PBNP, TROP #### [place] [address] #### ANEU, ADIFF, CBC #### [address] [address] Chloride [Moles/Vol] 97 98-107 mmol/L Low 0 [facility] ([place] (99379) Comment: Performed By: #### GFR, BMP, PBNP, TROP #### [place] [address] #### ANEU, ADIFF, CBC #### [address] [address] CO2 [Moles/Vol] 34 23-31 mmol/L High 02-25-2020 [facility] ([place]) (68668) Comment: Performed By: #### GFR, BMP, PBNP, TROP #### [place] [address] #### ANEU, ADIFF, CBC #### [address] [address] Creatinine [Mass/Vol] 1.31 0.55-1.02 mg/dL High 02-25-20 20 [facility] ([place] (0000 0) Comment: Performed By: #### GFR, BMP, PBNP, TROP #### [place] [address] #### ANEU, ADIFF, CBC #### [address] [address] Electrolyte Balance 4.0 mEq/L Normal 02-25-2020 [facility] ([place] (55678) Comment: Performed By: #### GFR, BMP, PBNP, TROP #### [place] [address] #### ANEU, ADIFF, CBC #### [address] [address] Globulin (S) [Mass/Vol] 3.6 G/dL Normal 2019 [facility] ([place]) (38003) Comment: Performed By: #### GFR, BMP, PBNP, TROP #### [place] [address] #### ANEU, ADIFF, CBC #### [address] [address] Glucose [Mass/Vol] 428 80-115 mg/dL Critically abnormal 0 02-25-2020 [facility] ([place]) (02550) Comment: Performed By: #### GFR, BMP, PBNP, TROP #### [place] [address] #### ANEU, ADIFF, CBC #### [address] [address] Potassium [Moles/Vol] 4.8 3.5-5.1 mmol/L Normal 02-25-20 [facility] ([place]) (0000 0) Comment: Performed By: #### GFR, BMP, PBNP, TROP #### [place] [address] #### ANEU, ADIFF, CBC #### [address] [address] Protein [Mass/Vol] 7.2 6.4-8.2 G/dL Normal 02-25-2020 [facility] ([place]) (14617) Comment: Performed By: #### GFR, BMP, PBNP, TROP #### [place] [address] #### ANEU, ADIFF, CBC #### [address] [address] Sodium [Moles/Vol] 135 136-145 mmol/L Low 02-25-2020 [facility] ([place] (57328) Comment: Performed By: #### GFR, BMP, PBNP, TROP #### [place] [address] #### ANEU, ADIFF, CBC #### [address] [address] Urea nitrogen [Mass/Vol] 17 7-18 mg/dL Normal 02-24 [facility] ([place] (0000 0) Comment: Performed By: #### GFR, BMP, PBNP, TROP #### [place] [address] #### ANEU, ADIFF, CBC #### [address] [address] Urea nitrogen/Creatinine [Mass 13 7-27 ratio Normal 02-25-2020 [facility] ratio] [facility] ([place]) (28519) Comment: Performed By: #### GFR, BMP, PBNP, TROP #### [place] [address] #### ANEU, ADIFF, CBC #### [address] [address] cbc on 2020-02-25 Erythrocyte distribution 14.8 11.5-14.5 % High 02-24 [facility] width (RBC) [Ratio] ([place]) (66611) Comment: Performed By: #### GFR, BMP, PBNP, TROP #### [place] [address] #### ANEU, ADIFF, CBC #### [address] [address] Hematocrit (Bld) [Volume 40.2 37.0-47.0 % Normal 02-24 [facility] fraction] ([place]) (0000 0) Comment: Performed By: #### GFR, BMP, PBNP, TROP #### [place] [address] #### ANEU, ADIFF, CBC #### [address] [address] Hemoglobin (Bld) 13.2 12.0-16.0 G/dL Normal 02-25-2020 [facility] [Mass/Vol] [facility] n ([place]) (89846) Comment: Performed By: #### GFR, BMP, PBNP, TROP #### [place] [address] #### ANEU, ADIFF, CBC #### [address] [address] MCH (RBC) [Entitic mass] 27.7 27.0-31.2 pg Normal 02-24 [facility] ([place]) (0000 0) Comment: Performed By: #### GFR, BMP, PBNP, TROP #### [place] [address] #### ANEU, ADIFF, CBC #### [address] [address] MCHC (RBC) [Mass/Vol] 32.8 33.0-37.0 G/dL Low 02-25-20 [facility] ([place]) (0000 0) Comment: Performed By: #### GFR, BMP, PBNP, TROP #### [place] [address] #### ANEU, ADIFF, CBC #### [address] [address] MCV (RBC) [Entitic vol] 84.5 80.0-94.0 fL Normal 2019 [facility] ([place]) (0000 0) Comment: Performed By: #### GFR, BMP, PBNP, TROP #### [place] [address] #### ANEU, ADIFF, CBC #### [address] [address] Platelet mean volume 8.1 7.4-10.4 fL Normal 0 [facility] (Bld) [Entitic vol] ([place]) (10284) Comment: Performed By: #### GFR, BMP, PBNP, TROP #### [place] [address] #### ANEU, ADIFF, CBC #### [address] [address] Platelets (Bld) [#/Vol] 265 130-400 10 3/mcL Normal 2019 [facility] ([place]) (64655) Comment: Performed By: #### GFR, BMP, PBNP, TROP #### [place] [address] #### ANEU, ADIFF, CBC #### [address] [address] RBC (Bld) [#/Vol] 4.76 4.20-5.40 10 6/mcL Normal 02-25-2020 A [facility] ([place]) (0000 0) Comment: Performed By: #### GFR, BMP, PBNP, TROP #### [place] [address] #### ANEU, ADIFF, CBC #### [address] [address] WBC (Bld) [#/Vol] 11.20 4.60-10.80 10 3/mcL High 02-25-2020 [facility] ([place]) (0000 0) Comment: Performed By: #### GFR, BMP, PBNP, TROP #### [place] [address] #### ANEU, ADIFF, CBC #### [address] [address] isis on 2020-02-25 Acetone (s) Negative Negative Normal 02-25-2020 [facility] ([place]) (89722) Comment: Performed By: #### GFR, BMP, PBNP, TROP #### [place] [address] #### ANEU, ADIFF, CBC #### [address] [address] .neuabs on Neutrophils (Bld) 8.50 2.85-6.16 10 3/mcL High 02-25-2020 A [facility] [#/Vol] [facility] ([place]) (36569) Comment: Performed By: #### GFR, BMP, PBNP, TROP #### [address] [address] #### ANEU, ADIFF, CBC #### [address] [address] .gfr on 2020-02-25 GFR 49 ml/min/1.73sqm Normal [facility] ([place]) (0000 0) Comment: Result Comment: GFR Population mean for Afri can [place]an, Non- Americans Ages 20-29 = 116 mL/min/1.73 [...] By: #### GFR, BMP, PBNP, TROP #### [address] [address] #### ANEU, ADIFF, CBC #### [address] [address] GFR Non- 41 ml/min/1.73sqm Normal 02-25-2020 [facility] ([place]) (13892) Comment: Result Comment: GFR Population mean for Afri can [place], Non- Americans Ages 20-29 = 116 mL/min/1.73 [...] By: #### GFR, BMP, PBNP, TROP #### [place] [address] #### ANEU, ADIFF, CBC #### [address] [address] .auto diff on 02-24 Ammonia (P) [Mass/Vol] 0.80 0.15-1.00 10 3/mcL Normal 020 [facility] ([place]) (13756) Comment: Performed By: #### GFR, BMP, PBNP, TROP #### [place] [address] #### ANEU, ADIFF, CBC #### [address] [address] Basophils (Bld) 0.10 0.00-0.19 10 3/mcL Normal 02-25-2020 [facility] [#/Vol] [facility] ([place]) (71639) Comment: Performed By: #### GFR, BMP, PBNP, TROP #### [place] [address] #### ANEU, ADIFF, CBC #### [address] [address] Basophils/100 WBC (Bld) 0.6 0.0-2.5 % Normal 2019 [facility] ([place]) (0000 0) Comment: Performed By: #### GFR, BMP, PBNP, TROP #### [place] [address] #### ANEU, ADIFF, CBC #### [address] [address] Eosinophils (Bld) 0.30 0.00-0.40 10 3/mcL Normal 02-25-2020 [facility] [#/Vol] [facility] ([place]) (80305) Comment: Performed By: #### GFR, BMP, PBNP, TROP #### [place] [address] #### ANEU, ADIFF, CBC #### [address] [address] Eosinophils/100 WBC (Bld) 2.4 0.0-7.0 % Normal 070 [facility] ([place]) (0000 0) Comment: Performed By: #### GFR, BMP, PBNP, TROP #### [place] [address] #### ANEU, ADIFF, CBC #### [address] [address] Lymphocytes (Bld) 1.60 0.77-3.85 10 3/mcL Normal 02-25-2020 A [facility] [#/Vol] [facility] ([place]) (63523) Comment: Performed By: #### GFR, BMP, PBNP, TROP #### [place] [address] #### ANEU, ADIFF, CBC #### [address] [address] Lymphocytes/100 WBC (Bld) 14.6 10.0-50.0 % Normal [facility] ([place]) (78428) Comment: Performed By: #### GFR, BMP, PBNP, TROP #### [place] [address] #### ANEU, ADIFF, CBC #### [address] [address] Monocytes/100 WBC (Bld) 6.8 1.7-13.0 % Normal 2019 [facility] ([place]) (0000 0) Comment: Performed By: #### GFR, BMP, PBNP, TROP #### [place] [address] #### ANEU, ADIFF, CBC #### [address] [address] Neutrophils/100 WBC (Bld) 75.6 37.0-80.0 % Normal [facility] ([place]) (10778) Comment: Performed By: #### GFR, BMP, PBNP, TROP #### [place] [address] #### ANEU, ADIFF, CBC #### [address] [address] vidh on 2020-02-24 Vit. D 25-Hydroxy 24 ng/mL Normal 02-24-2020 [facility] ([place]) (04907) Comment: Result Comment: Interpretive Values Based on Total 25(OH)D: Severe Deficiency <20 ng/mL Mild to Moderate Deficiency 20-30 ng/mL Optimum Levels 30-100 ng/mL Toxicity Possible >100 ng/mL Performed By: #### GFR, BMP, PBNP, TROP #### [place] [address] #### ANEU, ADIFF, CBC #### [address] [address] uric on 2020-02-24 Uric Acid Lvl 4.7 2.6-6.2 mg/dL Normal 02-24-2020 [facility] ([place]) (78576) Comment: Performed By: #### GFR, BMP, PBNP, TROP #### [place] [address] #### ANEU, ADIFF, CBC #### [address] [address] tsh on 2020-02-24 TSH Qn 2.13 0.36-3.74 mcIU/mL Normal 02-24-2020 [facility] ([place]) (59967) Comment: Performed By: #### GFR, BMP, PBNP, TROP #### [place] [address] #### ANEU, ADIFF, CBC #### [address] [address] lipid on 2020-02-24 Cholesterol [Mass/Vol] 134 0-200 mg/dL Normal 020 [facility] ([place]) (0000 0) Comment: Result Comment: Cholesterol Reference Interval: Less than 200 Desirable 200-239 Borderline high risk 240 and above High risk Performed By: #### GFR, BMP, PBNP, TROP #### [place] [address] #### ANEU, ADIFF, CBC #### [address] [address] Cholesterol in HDL 45 40-60 mg/dL Normal 02-24-2020 [facility] [Mass/Vol] ([place]) (000 00) Comment: Performed By: #### GFR, BMP, PBNP, TROP #### [place] [address] #### ANEU, ADIFF, CBC #### [address] [address] Cholesterol in LDL 55 0-130 mg/dL Normal 02-24-2020 [facility] [Mass/Vol] ([place]) (000 00) Comment: Performed By: #### GFR, BMP, PBNP, TROP #### [place] [address] #### ANEU, ADIFF, CBC #### [address] [address] Triglyceride [Mass/Vol] 171 0-150 mg/dL High 2019 [facility] ([place]) (0000 0) Comment: Result Comment: Triglyceride Reference Interval: Less than 150 Normal 150-199 Borderline high risk 200-499 High risk 500 or higher Very high risk Performed By: #### GFR, BMP, PBNP, TROP #### [place] [address] #### ANEU, ADIFF, CBC #### [address] [address] ft4 on 2020-02-24 Free T4 [Mass/Vol] 1.37 0.76-1.46 ng/dL Normal 02-24-2020 [facility] ([place]) (0000 0) Comment: Performed By: #### GFR, BMP, PBNP, TROP #### [place] [address] #### ANEU, ADIFF, CBC #### [address] [address] cmp on 2020-02-24 Albumin [Mass/Vol] 3.5 3.4-4.8 G/dL Normal 02-24-2020 [facility] ([place]) (93400) Comment: Performed By: #### GFR, BMP, PBNP, TROP #### [place] [address] #### ANEU, ADIFF, CBC #### [address] [address] Albumin/Globulin [Mass ratio] 1.0 1.1-2.5 ratio Low 02-24-2020 [facility] ([place]) (17546) Comment: Performed By: #### GFR, BMP, PBNP, TROP #### [place] [address] #### ANEU, ADIFF, CBC #### [address] [address] ALP [Catalytic activity/Vol] 193 40-135 U/L High 0 02-24-2020 [facility] ([place]) (0000 0) Comment: Performed By: #### GFR, BMP, PBNP, TROP #### [place] [address] #### ANEU, ADIFF, CBC #### [address] [address] ALT [Catalytic activity/Vol] 22 10-35 U/L Normal 0 02-24-2020 [facility] ([place]) (0000 0) Comment: Performed By: #### GFR, BMP, PBNP, TROP #### [place] [address] #### ANEU, ADIFF, CBC #### [address] [address] AST [Catalytic activity/Vol] 16 10-40 U/L Normal 0 02-24-2020 [facility] ([place]) (0000 0) Comment: Performed By: #### GFR, BMP, PBNP, TROP #### [place] [address] #### ANEU, ADIFF, CBC #### [address] [address] Bili Total 0.7 0.2-1.0 mg/dL Normal 02-24-2020 [facility] ([place]) (72311) Comment: Result Comment: Use of this assay is not recommended for patients undergoing treatment with eltrombopag d ue to the potential for falsely elevated results. Performed By: #### GFR, BMP, PBNP, TROP #### [place] [address] #### ANEU, ADIFF, CBC #### [address] [address] Calcium [Mass/Vol] 9.3 8.4-10.2 mg/dL Normal 02-24-2020 [facility] ([place]) (0000 0) Comment: Performed By: #### GFR, BMP, PBNP, TROP #### [place] [address] #### ANEU, ADIFF, CBC #### [address] [address] Chloride [Moles/Vol] 95 98-107 mmol/L Low 0 [facility] ([place]) (48858) Comment: Performed By: #### GFR, BMP, PBNP, TROP #### [place] [address] #### ANEU, ADIFF, CBC #### [address] [address] CO2 [Moles/Vol] 30 23-31 mmol/L Normal 02-24-2020 [facility] ([place]) (61175) Comment: Performed By: #### GFR, BMP, PBNP, TROP #### [place] [address] #### ANEU, ADIFF, CBC #### [address] [address] Creatinine [Mass/Vol] 1.28 0.55-1.02 mg/dL High 02-24-20 [facility] ([place]) (0000 0) Comment: Performed By: #### GFR, BMP, PBNP, TROP #### [place] [address] #### ANEU, ADIFF, CBC #### [address] [address] Electrolyte Balance 8.0 mEq/L Normal 02-24-2020 [facility] ([place]) (05490) Comment: Performed By: #### GFR, BMP, PBNP, TROP #### [place] [address] #### ANEU, ADIFF, CBC #### [address] [address] Globulin (S) [Mass/Vol] 3.4 G/dL Normal 2019 [facility] ([place]) (38605) Comment: Performed By: #### GFR, BMP, PBNP, TROP #### [place] [address] #### ANEU, ADIFF, CBC #### [address] [address] Glucose [Mass/Vol] 458 80-115 mg/dL Critically abnormal 0 02-24-2020 [facility] ([place]) (97178) Comment: Performed By: #### GFR, BMP, PBNP, TROP #### [place] [address] #### ANEU, ADIFF, CBC #### [address] [address] Potassium [Moles/Vol] 4.6 3.5-5.1 mmol/L Normal 02-24-20 [facility] ([place]) (0000 0) Comment: Performed By: #### GFR, BMP, PBNP, TROP #### [place] [address] #### ANEU, ADIFF, CBC #### [address] [address] Protein [Mass/Vol] 6.9 6.4-8.2 G/dL Normal 02-24-2020 [facility] ([place]) (50418) Comment: Performed By: #### GFR, BMP, PBNP, TROP #### [place] [address] #### ANEU, ADIFF, CBC #### [address] [address] Sodium [Moles/Vol] 133 136-145 mmol/L Low 02-24-2020 [facility] ([place]) (55706) Comment: Performed By: #### GFR, BMP, PBNP, TROP #### [place] [address] #### ANEU, ADIFF, CBC #### [address] [address] Urea nitrogen [Mass/Vol] 17 7-18 mg/dL Normal 02-23 [facility] ([place] (0000 0) Comment: Performed By: #### GFR, BMP, PBNP, TROP #### [place] [address] #### ANEU, ADIFF, CBC #### [address] [address] Urea nitrogen/Creatinine [Mass 13 7-27 ratio Normal 02-24-2020 [facility]] [facility] ([place]) (92054) Comment: Performed By: #### GFR, BMP, PBNP, TROP #### [place] [address] #### ANEU, ADIFF, CBC #### [address] [address] a1c on 2020-02-24 HbA1c (Bld) [Mass fraction] 9.2 4.3-6.4 % High [facility] ([place]) (0000 0) Comment: Performed By: #### GFR, BMP, PBNP, TROP #### [place] [address] #### FRED DIAZ, CBC #### [place] [address] [place], [place] [address] .gfr on 2020-02-24 GFR Non- 42 ml/min/1.73sqm Normal 02-24-2020 [facility] ([place]) (37670) Comment: Result Comment: GFR Population mean for Afri can [place]an, Non- Americans Ages 20-29 = 116 mL/min/1.73 [...] By: #### GFR, BMP, PBNP, TROP #### [place] [address] #### FRED DIAZ, CBC #### [address] [address] GFR 51 ml/min/1.73sqm Normal [facility] ([place]) (0000 0) Comment: Result Comment: GFR Population mean for Afri can [place]an, Non- Americans Ages 20-29 = 116 mL/min/1.73 [...] By: #### GFR, BMP, PBNP, TROP #### [place] [address] #### ANEU, ADIFF, CBC #### [address] [address] vidh on 2019-11-16 Vit. D 25-Hydroxy 21 ng/mL Normal 11-16-2019 A [facility] ([place]) (20189) Comment: Result Comment: Interpretive Values Based on Total 25(OH)D: Severe Deficiency <20 ng/mL Mild to Moderate Deficiency 20-30 ng/mL Optimum Levels 30-100 ng/mL Toxicity Possible >100 ng/mL Performed By: #### GFR, BMP, PBNP, TROP #### [place] [address] #### ANEU, ADIFF, CBC #### [address] [address] tsh on 2019-11-16 TSH Qn 2.00 0.36-3.74 mcIU/mL Normal 11-16-2019 [facility] ([place]) (21050) Comment: Performed By: #### GFR, BMP, PBNP, TROP #### [place] [address] #### ANEU, ADIFF, CBC #### [address] [address] lipid on 2019-11-16 Cholesterol [Mass/Vol] 157 0-200 mg/dL Normal 020 [facility] ([place]) (0000 0) Comment: Result Comment: Cholesterol Reference Interval: Less than 200 Desirable 200-239 Borderline high risk 240 and above High risk Performed By: #### GFR, BMP, PBNP, TROP #### [place] [address] #### ANEU, ADIFF, CBC #### [address] [address] Cholesterol in HDL 70 40-60 mg/dL High 11-16-2019 [facility] [Mass/Vol] ([place]) (000 00) Comment: Performed By: #### GFR, BMP, PBNP, TROP #### [place] [address] #### ANEU, ADIFF, CBC #### [address] [address] Cholesterol in LDL 67 0-130 mg/dL Normal 11-16-2019 [facility] [Mass/Vol] ([place]) (000 00) Comment: Performed By: #### GFR, BMP, PBNP, TROP #### [place] [address] #### ANEU, ADIFF, CBC #### [address] [address] Triglyceride [Mass/Vol] 100 0-150 mg/dL Normal 2019 [facility] ([place] (0000 0) Comment: Result Comment: Triglyceride Reference Interval: Less than 150 Normal 150-199 Borderline high risk 200-499 High risk 500 or higher Very high risk Performed By: #### GFR, BMP, PBNP, TROP #### [place] [address] #### ANEU, ADIFF, CBC #### [address] [address] cmp on 2019-11-16 Albumin [Mass/Vol] 3.4 3.4-4.8 G/dL Normal 11-16-2019 [facility] ([place]) (44684) Comment: Performed By: #### GFR, BMP, PBNP, TROP #### [place] [address] #### ANEU, ADIFF, CBC #### [address] [address] Albumin/Globulin [Mass ratio] 1.0 1.1-2.5 ratio Low 11-16-2019 [facility] ([place]) (74566) Comment: Performed By: #### GFR, BMP, PBNP, TROP #### [place] [address] #### ANEU, ADIFF, CBC #### [address] [address] ALP [Catalytic activity/Vol] 197 40-135 U/L High 0 11-16-2019 [facility] ([place]) (0000 0) Comment: Performed By: #### GFR, BMP, PBNP, TROP #### [place] [address] #### ANEU, ADIFF, CBC #### [address] [address] ALT [Catalytic activity/Vol] 39 10-35 U/L High 0 11-16-2019 [facility] ([place]) (0000 0) Comment: Performed By: #### GFR, BMP, PBNP, TROP #### [place] [address] #### ANEU, ADIFF, CBC #### [address] [address] AST [Catalytic activity/Vol] 21 10-40 U/L Normal 0 11-16-2019 [facility] ([place]) (0000 0) Comment: Performed By: #### GFR, BMP, PBNP, TROP #### [place] [address] #### ANEU, ADIFF, CBC #### [address] [address] Bili Total 0.9 0.2-1.0 mg/dL Normal 11-16-2019 [facility] ([place]) (04400) Comment: Result Comment: Use of this assay is not recommended for patients undergoing treatment with eltrombopag d ue to the potential for falsely elevated results. Performed By: #### GFR, BMP, PBNP, TROP #### [place] [address] #### ANEU, ADIFF, CBC #### [address] [address] Calcium [Mass/Vol] 9.1 8.4-10.2 mg/dL Normal 11-16-2019 [facility] ([place]) (0000 0) Comment: Performed By: #### GFR, BMP, PBNP, TROP #### [place] [address] #### ANEU, ADIFF, CBC #### [address] [address] Chloride [Moles/Vol] 99 98-107 mmol/L Normal 0 [facility] ([place]) (0000 0) Comment: Performed By: #### GFR, BMP, PBNP, TROP #### [address] [address] #### ANEU, ADIFF, CBC #### [address] [address] CO2 [Moles/Vol] 30 23-31 mmol/L Normal 11-16-2019 [facility] ([place]) (85656) Comment: Performed By: #### GFR, BMP, PBNP, TROP #### [place] [address] #### ANEU, ADIFF, CBC #### [address] [address] Creatinine [Mass/Vol] 1.22 0.55-1.02 mg/dL High 11-16-19 20 [facility] ([place]) (0000 0) Comment: Performed By: #### GFR, BMP, PBNP, TROP #### [place] [address] #### ANEU, ADIFF, CBC #### [address] [address] Electrolyte Balance 7.0 mEq/L Normal 11-16-2019 [facility] ([place]) (80389) Comment: Performed By: #### GFR, BMP, PBNP, TROP #### [place] [address] #### ANEU, ADIFF, CBC #### [address] [address] Globulin (S) [Mass/Vol] 3.3 G/dL Normal 2019 [facility] ([place]) (59499) Comment: Performed By: #### GFR, BMP, PBNP, TROP #### [place] [address] #### ANEU, ADIFF, CBC #### [address] [address] Glucose [Mass/Vol] 329 80-115 mg/dL High 11-16-2019 [facility] ([place]) (46967) Comment: Performed By: #### GFR, BMP, PBNP, TROP #### [place] [address] #### ANEU, ADIFF, CBC #### [address] [address] Potassium [Moles/Vol] 4.8 3.5-5.1 mmol/L Normal 11-16-19 [facility] ([place]) (0000 0) Comment: Performed By: #### GFR, BMP, PBNP, TROP #### [place] [address] #### ANEU, ADIFF, CBC #### [address] [address] Protein [Mass/Vol] 6.7 6.4-8.2 G/dL Normal 11-16-2019 [facility] ([place]) (55927) Comment: Performed By: #### GFR, BMP, PBNP, TROP #### [place] [address] #### ANEU, ADIFF, CBC #### [address] [address] Sodium [Moles/Vol] 136 136-145 mmol/L Normal 11-16-2019 [facility] ([place]) (0000 0) Comment: Performed By: #### GFR, BMP, PBNP, TROP #### [place] [address] #### ANEU, ADIFF, CBC #### [address] [address] Urea nitrogen [Mass/Vol] 14 7-18 mg/dL Normal 11-15 [facility] ([place]) (0000 0) Comment: Performed By: #### GFR, BMP, PBNP, TROP #### [place] [address] #### ANEU, ADIFF, CBC #### [address] [address] Urea nitrogen/Creatinine [Mass 11 7-27 ratio Normal 11-16-2019 [facility]] [facility] ([place]) ([address]1933) Comment: Performed By: #### GFR, BMP, PBNP, TROP #### [address] [address] #### ANEU, ADIFF, CBC #### [address] [address] a1c on 2019-11-16 HbA1c (Bld) [Mass fraction] 8.5 4.3-6.4 % High [facility] ([place]) (0000 0) Comment: Performed By: #### GFR, BMP, PBNP, TROP #### [address] [address] #### ANEU, ADIFF, CBC #### [address] [address] .gfr on 2019-11-16 GFR Non- 44 ml/min/1.73sqm Normal 11-16-2019 [facility] ([place]) (94506) Comment: Result Comment: GFR Population mean for Afri can [place]an, Non- Americans Ages 20-29 = 116 mL/min/1.73 [...] By: #### GFR, BMP, PBNP, TROP #### [address] [address] #### ANEU, ADIFF, CBC #### [address] [address] GFR 54 ml/min/1.73sqm Normal 03- [facility] ([place]) (0000 0) Comment: Result Comment: GFR Population mean for Afri can [place], Non- Americans Ages 20-29 = 116 mL/min/1.73 [...] By: #### GFR, BMP, PBNP, TROP #### [place] [address] #### ANEU, ADIFF, CBC #### [address] [address] mri spine lumbar w/o contrast on 2019-08-18 MRI SPINE LUMBAR ORIGINAL Normal 08-18-2019 [facility] W/O CONTRAST MRI SPINE LUMBAR W/O CONTRAST [facility] ([place]) (63381) ORDERING PROVIDER: JENNY VIDES CLINICAL STATEMENT: lumbosacral root disease. TECHNIQUE: Sagittal T2, T1 and STIR; axial T1 and T2 weighte d images. COMPARISON: None. Vertebral Nomenclature: For purposes of this dictation, it is assumed that there are 5 [id number]-[id number], lumbar-type vertebrae, and the most caudal fully [...] Erythrocyte distribution 14.6 11.5-14.5 % High 08-17 [facility] width (RBC) [Ratio] ([place]) (58898) Comment: Performed By: #### GFR, BMP, PBNP, TROP #### [address] [address] #### ANEU, ADIFF, CBC #### [address] [address] Hematocrit (Bld) [Volume 37.4 37.0-47.0 % Normal 08-17 [facility] fraction] ([place]) (0000 0) Comment: Performed By: #### GFR, BMP, PBNP, TROP #### [address] [address] #### ANEU, ADIFF, CBC #### [address] [address] Hemoglobin (Bld) 12.4 12.0-16.0 G/dL Normal 08-17-2019 [facility] [Mass/Vol] [facility] ([place]) (14063) Comment: Performed By: #### GFR, BMP, PBNP, TROP #### [address] [address] #### ANEU, ADIFF, CBC #### [address] [address] MCH (RBC) [Entitic mass] 27.8 27.0-31.2 pg Normal 08-17 [facility] ([place]) (0000 0) Comment: Performed By: #### GFR, BMP, PBNP, TROP #### [place] [address] #### ANEU, ADIFF, CBC #### [address] [address] MCHC (RBC) [Mass/Vol] 33.1 33.0-37.0 G/dL Normal 08-17-20 19 [facility] ([place]) (0000 0) Comment: Performed By: #### GFR, BMP, PBNP, TROP #### [place] [address] #### ANEU, ADIFF, CBC #### [address] [address] MCV (RBC) [Entitic vol] 83.8 80.0-94.0 fL Normal 2018 [facility] ([place]) (0000 0) Comment: Performed By: #### GFR, BMP, PBNP, TROP #### [place] [address] #### ANEU, ADIFF, CBC #### [address] [address] Platelet mean volume 7.7 7.4-10.4 fL Normal 9 [facility] (d) [Entitic vol] ([place]) (11232) Comment: Performed By: #### GFR, BMP, PBNP, TROP #### [place] [address] #### ANEU, ADIFF, CBC #### [address] [address] Platelets (Bld) [#/Vol] 277 130-400 10 3/mcL Normal 2018 [facility] ([place]) (16308) Comment: Performed By: #### GFR, BMP, PBNP, TROP #### [facility] [address] [place], [place] [address] #### ANEU, ADIFF, CBC #### [address] [address] RBC (Bld) [#/Vol] 4.47 4.20-5.40 10 6/mcL Normal 08-17-2019 A [facility] ([place]) (0000 0) Comment: Performed By: #### GFR, BMP, PBNP, TROP #### [place] [address] #### ANEU, ADIFF, CBC #### [address] [address] WBC (Bld) [#/Vol] 10.70 4.60-10.80 10 3/mcL Normal 08-17-2019 [facility] ([place]) (35989) Comment: Performed By: #### GFR, BMP, PBNP, TROP #### [place] [address] #### ANEU, ADIFF, CBC #### [address] [address] bmp on 2019-08-17 Calcium [Mass/Vol] 9.1 8.4-10.2 mg/dL Normal 08-17-2019 [facility] ([place]) (0000 0) Comment: Performed By: #### GFR, BMP, PBNP, TROP #### [place] [address] #### ANEU, ADIFF, CBC #### [address] [address] Chloride [Moles/Vol] 100 98-107 mmol/L Normal 9 [facility] ([place]) (0000 0) Comment: Performed By: #### GFR, BMP, PBNP, TROP #### [place] [address] #### ANEU, ADIFF, CBC #### [address] [address] CO2 [Moles/Vol] 29 23-31 mmol/L Normal 08-17-2019 [facility] ([place]) ([id number]) Comment: Performed By: #### GFR, BMP, PBNP, TROP #### [place] [address] #### ANEU, ADIFF, CBC #### [address] [address] Creatinine [Mass/Vol] 0.99 0.55-1.02 mg/dL Normal 08-17-20 19 [facility] ([place]) ([id number]) Comment: Performed By: #### GFR, BMP, PBNP, TROP #### [place] [address] #### ANEU, ADIFF, CBC #### [address] [address] Electrolyte Balance 7.0 mEq/L Normal 08-17-2019 [facility] ([place]) ([address]) Comment: Performed By: #### GFR, BMP, PBNP, TROP #### [place] [address] #### ANEU, ADIFF, CBC #### [address] [address] Glucose [Mass/Vol] 319 80-115 mg/dL High 08-17-2019 [facility] ([place]) ([address]) Comment: Performed By: #### GFR, BMP, PBNP, TROP #### [place] [address] #### ANEU, ADIFF, CBC #### [address] [address] Potassium [Moles/Vol] 4.1 3.5-5.1 mmol/L Normal 08-17-20 19 [facility] ([place]) (0000 0) Comment: Performed By: #### GFR, BMP, PBNP, TROP #### [place] [address] #### ANEU, ADIFF, CBC #### [address] [address] Sodium [Moles/Vol] 136 136-145 mmol/L Normal 08-17-2019 [facility] ([place]) (0000 0) Comment: Performed By: #### GFR, BMP, PBNP, TROP #### [place] [address] #### ANEU, ADIFF, CBC #### [address] [address] Urea nitrogen [Mass/Vol] 12 7-18 mg/dL Normal 08-17 [facility] ([place]) (0000 0) Comment: Performed By: #### GFR, BMP, PBNP, TROP #### [place] [address] #### ANEU, ADIFF, CBC #### [address] [address] Urea nitrogen/Creatinine [Mass 12 7-27 ratio Normal 08-17-2019 [facility]] [facility] ([place]) ([id number]) Comment: Performed By: #### GFR, BMP, PBNP, TROP #### [place] [address] #### ANEU, ADIFF, CBC #### [address] [address] .neuabs on Neutrophils (Bld) 7.60 2.85-6.16 10 3/mcL High 08-17-2019 [facility] [#/Vol] [facility] ([place]) ([id number]) Comment: Performed By: #### GFR, BMP, PBNP, TROP #### [place] [address] #### ANEU, ADIFF, CBC #### [address] [address] .gfr on 2019-08-17 GFR 68 ml/min/1.73sqm Normal 07-21 [facility] ([place]) (0000 0) Comment: Result Comment: GFR Population mean for Afri can [place]an, Non- Americans Ages 20-29 = 116 mL/min/1.73 [...] By: #### GFR, BMP, PBNP, TROP #### [place] [address] #### ANEU, ADIFF, CBC #### [address] [address] GFR Non- 56 ml/min/1.73sqm Normal 08-17-2019 [facility] ([place]) ([id number]) Comment: Result Comment: GFR Population mean for Afri can [place]an, Non- Americans Ages 20-29 = 116 mL/min/1.73 [...] By: #### GFR, BMP, PBNP, TROP #### [place] [address] #### ANEU, ADIFF, CBC #### [address] [address] .auto diff on 08-17 Ammonia (P) [Mass/Vol] 0.70 0.15-1.00 10 3/mcL Normal 019 [facility] ([place]) ([id number]) Comment: Performed By: #### GFR, BMP, PBNP, TROP #### [place] [address] #### ANEU, ADIFF, CBC #### [address] [address] Basophils (Bld) 0.10 0.00-0.19 10 3/mcL Normal 08-17-2019 [facility] [#/Vol] [facility] ([place]) (95221) Comment: Performed By: #### GFR, BMP, PBNP, TROP #### [place] [address] #### ANEU, ADIFF, CBC #### [address] [address] Basophils/100 WBC (Bld) 0.6 0.0-2.5 % Normal 2018 [facility] ([place]) (0000 0) Comment: Performed By: #### GFR, BMP, PBNP, TROP #### [place] [address] #### ANEU, ADIFF, CBC #### [address] [address] Eosinophils (Bld) 0.30 0.00-0.40 10 3/mcL Normal 08-17-2019 [facility] [#/Vol] [facility] ([place]) (17771) Comment: Performed By: #### GFR, BMP, PBNP, TROP #### [place] [address] #### ANEU, ADIFF, CBC #### [address] [address] Eosinophils/100 WBC (Bld) 2.6 0.0-7.0 % Normal 07-21 [facility] ([place]) (0000 0) Comment: Performed By: #### GFR, BMP, PBNP, TROP #### [place] [address] #### ANEU, ADIFF, CBC #### [address] [address] Lymphocytes (Bld) 2.10 0.77-3.85 10 3/mcL Normal 08-17-2019 [facility] [#/Vol] [facility] ([place]) (14122) Comment: Performed By: #### GFR, BMP, PBNP, TROP #### [place] [address] #### ANEU, ADIFF, CBC #### [address] [address] Lymphocytes/100 WBC (Bld) 19.5 10.0-50.0 % Normal 07-21 [facility] ([place]) (37565) Comment: Performed By: #### GFR, BMP, PBNP, TROP #### [place] [address] #### ANEU, ADIFF, CBC #### [address] [address] Monocytes/100 WBC (Bld) 6.5 1.7-13.0 % Normal 2018 [facility] ([place]) (0000 0) Comment: Performed By: #### GFR, BMP, PBNP, TROP #### [place] [address] #### ANEU, ADIFF, CBC #### [address] [address] Neutrophils/100 WBC (Bld) 70.8 37.0-80.0 % Normal 07-21 [facility] ([place]) (04871) Comment: Performed By: #### GFR, BMP, PBNP, TROP #### [place] [address] #### ANEU, ADIFF, CBC #### [address] [address] xr femur minimum 2 views left on 2019-07-31 XR FEMUR MINIMUM 2 ORIGINAL Normal 07-31-2019 [facility] VIEWS LEFT XR FEMUR 4 VIEWS LEFT [facility] ([place] ([id number]) CLINICAL STATEMENT: pain, in left hip. COMPARISON: [...] lund on 2019-06-14 CUR . Normal 06-14-2019 [facility] - Microbiology [facility] ([place]) ([id number]) PROCEDURE: Urine Culture [*1] SOURCE: Urine, Clean [...] Locations *1: This test was performed at: [facility], [address] [place] [address], [id number] , [place] Comment: Performed By: #### GFR, BMP, PBNP, TROP #### [address] [address] #### ANEU, ADIFF, CBC #### [place] [address] [place], [place] [address] cbc on 2019-06-13 Erythrocyte distribution 15.3 11.5-14.5 % High 06-13 [facility] width (RBC) [Ratio] ([place]) (30293) Comment: Performed By: #### GFR, BMP, PBNP, TROP #### [place] [address] #### ANEU, ADIFF, CBC #### [address] [address] Hematocrit (Bld) [Volume 35.2 37.0-47.0 % Low 06-13 [facility] fraction] ([place]) (0000 0) Comment: Performed By: #### GFR, BMP, PBNP, TROP #### [place] [address] #### ANEU, ADIFF, CBC #### [address] [address] Hemoglobin (Bld) 11.6 12.0-16.0 G/dL Low 06-13-2019 [facility] [Mass/Vol] ([place]) (000 00) Comment: Performed By: #### GFR, BMP, PBNP, TROP #### [place] [address] #### ANEU, ADIFF, CBC #### [address] [address] MCH (RBC) [Entitic mass] 27.8 27.0-31.2 pg Normal 06-13 [facility] ([place]) (0000 0) Comment: Performed By: #### GFR, BMP, PBNP, TROP #### [place] [address] #### ANEU, ADIFF, CBC #### [address] [address] MCHC (RBC) [Mass/Vol] 33.0 33.0-37.0 G/dL Normal 06-13-20 [facility] ([place]) (0000 0) Comment: Performed By: #### GFR, BMP, PBNP, TROP #### [place] [address] #### ANEU, ADIFF, CBC #### [address] [address] MCV (RBC) [Entitic vol] 84.3 80.0-94.0 fL Normal 2018 [facility] ([place]) (0000 0) Comment: Performed By: #### GFR, BMP, PBNP, TROP #### [place] [address] #### ANEU, ADIFF, CBC #### [address] [address] Platelet mean volume 7.4 7.4-10.4 fL Normal 9 [facility] (Bld) [Entitic vol] ([place]) (31439) Comment: Performed By: #### GFR, BMP, PBNP, TROP #### [place] [address] #### ANEU, ADIFF, CBC #### [address] [address] Platelets (Bld) [#/Vol] 234 130-400 10 3/mcL Normal 2018 [facility] ([place]) (93400) Comment: Performed By: #### GFR, BMP, PBNP, TROP #### [place] [address] #### ANEU, ADIFF, CBC #### [address] [address] RBC (Bld) [#/Vol] 4.17 4.20-5.40 10 6/mcL Low 06-13-2019 A [facility] ([place]) (0000 0) Comment: Performed By: #### GFR, BMP, PBNP, TROP #### [place] [address] #### ANEU, ADIFF, CBC #### [address] [address] WBC (Bld) [#/Vol] 11.60 4.60-10.80 10 3/mcL High 06-13-2019 [facility] ([place]) (0000 0) Comment: Performed By: #### GFR, BMP, PBNP, TROP #### [place] [address] #### ANEU, ADIFF, CBC #### [address] [address] bmp on 2019-06-13 Calcium [Mass/Vol] 8.5 8.4-10.2 mg/dL Normal 06-13-2019 [facility] ([place] (0000 0) Comment: Performed By: #### GFR, BMP, PBNP, TROP #### [place] [address] #### ANEU, ADIFF, CBC #### [address] [address] Chloride [Moles/Vol] 101 98-107 mmol/L Normal 9 [facility] ([place]) (0000 0) Comment: Performed By: #### GFR, BMP, PBNP, TROP #### [place] [address] #### ANEU, ADIFF, CBC #### [address] [address] CO2 [Moles/Vol] 38 23-31 mmol/L High 06-13-2019 [facility] ([place]) (02721) Comment: Performed By: #### GFR, BMP, PBNP, TROP #### [place] [address] #### ANEU, ADIFF, CBC #### [address] [address] Creatinine [Mass/Vol] 1.42 0.55-1.02 mg/dL High 06-13-20 19 [facility] ([place]) (0000 0) Comment: Performed By: #### GFR, BMP, PBNP, TROP #### [place] [address] #### ANEU, ADIFF, CBC #### [address] [address] Electrolyte Balance 3.0 mEq/L Normal 06-13-2019 [facility] ([place]) (99705) Comment: Performed By: #### GFR, BMP, PBNP, TROP #### [place] [address] #### ANEU, ADIFF, CBC #### [address] [address] Glucose [Mass/Vol] 164 80-115 mg/dL High 06-13-2019 [facility] ([place]) (62723) Comment: Performed By: #### GFR, BMP, PBNP, TROP #### [place] [address] #### ANEU, ADIFF, CBC #### [address] [address] Potassium [Moles/Vol] 4.0 3.5-5.1 mmol/L Normal 06-13-20 [facility] ([place]) (0000 0) Comment: Performed By: #### GFR, BMP, PBNP, TROP #### [place] [address] #### ANEU, ADIFF, CBC #### [address] [address] Sodium [Moles/Vol] 142 136-145 mmol/L Normal 06-13-2019 [facility] ([place] (0000 0) Comment: Performed By: #### GFR, BMP, PBNP, TROP #### [place] [address] #### ANEU, ADIFF, CBC #### [address] [address] Urea nitrogen [Mass/Vol] 10 7-18 mg/dL Normal 06-13 [facility] ([place] (0000 0) Comment: Performed By: #### GFR, BMP, PBNP, TROP #### [place] [address] #### ANEU, ADIFF, CBC #### [address] [address] Urea nitrogen/Creatinine [Mass 7 7-27 ratio Normal 06-13-2019 [facility]] [facility] ([place]) (72937) Comment: Performed By: #### GFR, BMP, PBNP, TROP #### [address] [address] #### ANEU, ADIFF, CBC #### [address] [address] .neuabs on Neutrophils (Bld) 8.40 2.85-6.16 10 3/mcL High 06-13-2019 [facility] [#/Vol] [facility] ([place]) (40425) Comment: Performed By: #### GFR, BMP, PBNP, TROP #### [place] [id number] #### ANEU, ADIFF, CBC #### [address] [address] .gfr on 2019-06-13 GFR 45 ml/min/1.73sqm Normal 05-20 [facility] ([place]) (0000 0) Comment: Result Comment: GFR Population mean for Afri can [place]an, Non- Americans Ages 20-29 = 116 mL/min/1.73 [...] By: #### GFR, BMP, PBNP, TROP #### [address] [address] #### ANEU, ADIFF, CBC #### [address] [address] GFR Non- 37 ml/min/1.73sqm Normal 06-13-2019 [facility] ([place]) (71158) Comment: Result Comment: GFR Population mean for Afri can [place], Non- Americans Ages 20-29 = 116 mL/min/1.73 [...] By: #### GFR, BMP, PBNP, TROP #### [place] [address] #### ANEU, ADIFF, CBC #### [address] [address] .auto diff on 06-13 Ammonia (P) [Mass/Vol] 0.90 0.15-1.00 10 3/mcL Normal [address] [place] [address] ([place]) (86740) Comment: Performed By: #### GFR, BMP, PBNP, TROP #### [place] [address] #### ANEU, ADIFF, CBC #### [address] [address] Basophils (Bld) 0.10 0.00-0.19 10 3/mcL Normal 06-13-2019 [facility] [#/Vol] [facility] ([place]) (58912) Comment: Performed By: #### GFR, BMP, PBNP, TROP #### [place] [address] #### ANEU, ADIFF, CBC #### [address] [address] Basophils/100 WBC (Bld) 0.5 0.0-2.5 % Normal 2018 [facility] ([place]) (0000 0) Comment: Performed By: #### GFR, BMP, PBNP, TROP #### [place] [address] #### ANEU, ADIFF, CBC #### [address] [address] Eosinophils (Bld) 0.30 0.00-0.40 10 3/mcL Normal 06-13-2019 [facility] [#/Vol] [facility] ([place]) (13479) Comment: Performed By: #### GFR, BMP, PBNP, TROP #### [place] [address] #### ANEU, ADIFF, CBC #### [address] [address] Eosinophils/100 WBC (Bld) 2.3 0.0-7.0 % Normal 05-20 [facility] ([place]) (0000 0) Comment: Performed By: #### GFR, BMP, PBNP, TROP #### [place] [address] #### ANEU, ADIFF, CBC #### [address] [address] Lymphocytes (Bld) 2.10 0.77-3.85 10 3/mcL Normal 06-13-2019 [facility] [#/Vol] [facility] ([place]) (69369) Comment: Performed By: #### GFR, BMP, PBNP, TROP #### [place] [address] #### ANEU, ADIFF, CBC #### [address] [address] Lymphocytes/100 WBC (Bld) 17.9 10.0-50.0 % Normal 05-20 [facility] ([place]) (34043) Comment: Performed By: #### GFR, BMP, PBNP, TROP #### [place] [address] #### ANEU, ADIFF, CBC #### [address] [address] Monocytes/100 WBC (Bld) 7.4 1.7-13.0 % Normal 2018 [facility] ([place]) (0000 0) Comment: Performed By: #### GFR, BMP, PBNP, TROP #### [address] [address] #### ANEU, ADIFF, CBC #### [facility] [address] [place], [place] [address] Neutrophils/100 WBC (Bld) 71.9 37.0-80.0 % Normal 05-20 [facility] ([place]) (38863) Comment: Performed By: #### GFR, BMP, PBNP, TROP #### [address] [address] #### ANEU, ADIFF, CBC #### [facility] [address] [place], [place] [address] xr chest 2 views on 2019-06-12 XR CHEST 2 VIEWS ORIGINAL Normal 06-12-2019 [facility] Chest PA and lateral 06/12/2019 9:43 AM [facility] ([place]) (33722) History: Chest Pain The heart and pulmonary [...] 2019-06-12 Color (U) Yellow Normal 06-12-2019 [facility] ([place]) (94807) Comment: Performed By: #### UAMICAO, UA #### [address] [address] Glucose (U) [Mass/Vol] Negative Negative mg/dL Normal 019 [facility] ([place]) (13785) Comment: Performed By: #### UAMICAO, UA #### [address] [address] Ketones Ql (U) Negative Negative Normal 06-12-2019 [facility] ([place]) (23060) Comment: Performed By: #### UAMICAO, UA #### [address] [address] UA Appear Cloudy Clear Abnormal 06-12-2019 [facility] ([place]) (73661) Comment: Performed By: #### UAMICAO, UA #### [address] [address] UA Blood Small Negative Abnormal 06-12-2019 [facility] ([place]) (49874) Comment: Performed By: #### UAMICAO, UA #### [address] [address] UA Leuk Est Moderate Negative Abnormal 06-12-2019 [facility] ([place] (26039) Comment: Performed By: #### UAMICAO, UA #### [address] [address] UA Nitrite Positive Negative Abnormal 06-12-2019 [facility] ([place] (90857) Comment: Performed By: #### UAMICAO, UA #### [place] [address] UA pH 7.0 5.0 - 8.0 Normal 06-12-2019 [facility] ([place]) (78874) Comment: Performed By: #### UAMICAO, UA #### [place] [address] UA Protein 30 Negative mg/dL Normal 06-12-2019 [facility] ([place] (83579) Comment: Performed By: #### UAMICAO, UA #### [address] [address] UA Spec Grav 1.015 1.015-1.025 Normal 06-12-2019 [facility] ([place]) (02603) Comment: Performed By: #### UAMICAO, UA #### [address] [address] UA Specimen Type Clean Catch Normal 06-12-2019 [facility] ([place]) (81422) Comment: Performed By: #### UAMICAO, UA #### [address] [address] UA Urobilinogen 0.2 0.2-1.0 E.U./dL Normal 06-12-2019 [facility] ([place]) (45334) Comment: Performed By: #### UAMICAO, UA #### [address] [address] Urobilinogen Qn (U) Negative Negative Normal 06-12-2019 [facility] ([place]) (0000 0) Comment: Performed By: #### UAMICAO, UA #### [address] [address] trop on 2019-06-12 Troponin I.cardiac <0.020 0.000-0.040 ng/mL Normal 9 [facility] [Mass/Vol] [facility] ([place] (75893) Comment: Result Comment: Troponin I r eference range: 0.00-0.040 ng/mL Negative an d non-diagnostic. >0.040 ng/mL Consistent with cardiac damage, increased clinical risk and possibility of myocardial in farction. Serial measurements, a rise & fall in test results, clinical histo ry, appropriate symptoms and/or ECG changes may help assess possibility of [place]. *Other non-acute coronary sy ndrome conditions such as CHF, myoc arditis, pulmonary emboli, sepsis and cardiac surgery could result in myoc ardial damage and increased troponi n levels. Performed By: #### GFR, BMP, PBNP, TROP #### [place] [address] #### ANEU, ADIFF, CBC #### [address] [address] pbnp on 2019-06-12 Natriuretic peptide B (Bld) 940 0-125 pg/mL High [facility] [Mass/Vol] ([place]) (000 00) Comment: Result Comment: NT-proBNP re sults of less than 300 pg/mL effectively rules out acute congestive h eart failure with 99% negative predictive value. Performed By: #### GFR, BMP, PBNP, TROP #### [place] [address] #### ANEU, ADIFF, CBC #### [address] [address] cbc on 2019-06-12 Erythrocyte distribution 14.8 11.5-14.5 % High 06-12 [facility] width (RBC) [Ratio] ([place]) (69940) Comment: Performed By: #### GFR, BMP, PBNP, TROP #### [place] [address] #### ANEU, ADIFF, CBC #### [address] [address] Hematocrit (Bld) [Volume 37.7 37.0-47.0 % Normal 06-12 [facility] fraction] ([place]) (0000 0) Comment: Performed By: #### GFR, BMP, PBNP, TROP #### [place] [address] #### ANEU, ADIFF, CBC #### [address] [address] Hemoglobin (Bld) 12.5 12.0-16.0 G/dL Normal 06-12-2019 [facility] [Mass/Vol] [facility] ([place]) (82682) Comment: Performed By: #### GFR, BMP, PBNP, TROP #### [place] [address] #### ANEU, ADIFF, CBC #### [address] [address] MCH (RBC) [Entitic mass] 27.8 27.0-31.2 pg Normal 06-12 [facility] ([place]) (0000 0) Comment: Performed By: #### GFR, BMP, PBNP, TROP #### [place] [address] #### ANEU, ADIFF, CBC #### [address] [address] MCHC (RBC) [Mass/Vol] 33.2 33.0-37.0 G/dL Normal 06-12-20 [facility] ([place]) (0000 0) Comment: Performed By: #### GFR, BMP, PBNP, TROP #### [place] [address] #### ANEU, ADIFF, CBC #### [address] [address] MCV (RBC) [Entitic vol] 83.8 80.0-94.0 fL Normal 2018 [facility] ([place]) (0000 0) Comment: Performed By: #### GFR, BMP, PBNP, TROP #### [place] [address] #### ANEU, ADIFF, CBC #### [address] [address] Platelet mean volume 8.1 7.4-10.4 fL Normal 9 [facility] (Bld) [Entitic vol] ([place]) (11009) Comment: Performed By: #### GFR, BMP, PBNP, TROP #### [place] [address] #### ANEU, ADIFF, CBC #### [address] [address] Platelets (Bld) [#/Vol] 242 130-400 10 3/mcL Normal 2018 [facility] ([place]) (00810) Comment: Performed By: #### GFR, BMP, PBNP, TROP #### [place] [address] #### ANEU, ADIFF, CBC #### [address] [address] RBC (Bld) [#/Vol] 4.50 4.20-5.40 10 6/mcL Normal 06-12-2019 A [facility] ([place]) (0000 0) Comment: Performed By: #### GFR, BMP, PBNP, TROP #### [place] [address] #### ANEU, ADIFF, CBC #### [address] [address] WBC (Bld) [#/Vol] 10.00 4.60-10.80 10 3/mcL Normal 06-12-2019 [facility] ([place]) (92125) Comment: Performed By: #### GFR, BMP, PBNP, TROP #### [address] [address] #### ANEU, ADIFF, CBC #### [address] [address] bmp on 2019-06-12 Calcium [Mass/Vol] 8.2 8.4-10.2 mg/dL Low 06-12-2019 [facility] ([place]) (29456) Comment: Order Comment: Hemolyzed - P lease redraw Performed By: #### GFR, BMP, PBNP, TROP #### [address] [address] #### ANEU, ADIFF, CBC #### [address] [address] Chloride [Moles/Vol] 101 98-107 mmol/L Normal [facility] ([place]) (0000 0) Comment: Order Comment: Hemolyzed - P lease redraw Performed By: #### GFR, BMP, PBNP, TROP #### [address] [address] #### ANEU, ADIFF, CBC #### [address] [address] CO2 [Moles/Vol] 30 23-31 mmol/L Normal 06-12-2019 [facility] ([place]) (03160) Comment: Order Comment: Hemolyzed - P lease redraw Performed By: #### GFR, BMP, PBNP, TROP #### [address] [address] #### ANEU, ADIFF, CBC #### [address] [address] Creatinine [Mass/Vol] 1.07 0.55-1.02 mg/dL High 06-12-20 19 [facility] ([place]) (0000 0) Comment: Order Comment: Hemolyzed - P lease redraw Performed By: #### GFR, BMP, PBNP, TROP #### [place] [address] #### ANEU, ADIFF, CBC #### [address] [address] Electrolyte Balance 9.0 mEq/L Normal 06-12-2019 [facility] ([place]) (64173) Comment: Order Comment: Hemolyzed - P lease redraw Performed By: #### GFR, BMP, PBNP, TROP #### [place] [address] #### ANEU, ADIFF, CBC #### [address] [address] Glucose [Mass/Vol] 232 80-115 mg/dL High 06-12-2019 [facility] ([place]) (15808) Comment: Order Comment: Hemolyzed - P lease redraw Performed By: #### GFR, BMP, PBNP, TROP #### [place] [address] #### ANEU, ADIFF, CBC #### [address] [address] Potassium [Moles/Vol] 3.8 3.5-5.1 mmol/L Normal 06-12-20 [facility] ([place]) (0000 0) Comment: Order Comment: Hemolyzed - P lease redraw Performed By: #### GFR, BMP, PBNP, TROP #### [place] [address] #### ANEU, ADIFF, CBC #### [address] [address] Sodium [Moles/Vol] 140 136-145 mmol/L Normal 06-12-2019 [facility] ([place]) (0000 0) Comment: Order Comment: Hemolyzed - P lease redraw Performed By: #### GFR, BMP, PBNP, TROP #### [place] [address] #### ANEU, ADIFF, CBC #### [address] [address] Urea nitrogen [Mass/Vol] 7 7-18 mg/dL Normal 06-12 [facility] ([place]) (0000 0) Comment: Order Comment: Hemolyzed - P lease redraw Performed By: #### GFR, BMP, PBNP, TROP #### [address] [address] #### ANEU, ADIFF, CBC #### [address] [address] Urea nitrogen/Creatinine [Mass 7 7-27 ratio Normal 06-12-2019 [facility]] [facility] ([place]) (97670) Comment: Order Comment: Hemolyzed - P lease redraw Performed By: #### GFR, BMP, PBNP, TROP #### [place] [address] #### ANEU, ADIFF, CBC #### [address] [address] .urinalysis microscopic (ao) on 2019-06-12 RBC (U) [#/Vol] 0-5 None Seen Abnormal 06-12-2019 [facility] ([place]) (94253) Comment: Performed By: #### UAMICAO, UA #### [place] [address] UA Bacteria 4+ /hpf Abnormal 06-12-2019 [facility] ([place]) (43389) Comment: Performed By: #### UAMICAO, UA #### [place] [address] UA Squam Epithelial 0-5 None Seen Abnormal 06-12-2019 [facility] ([place]) (0000 0) Comment: Performed By: #### UAMICAO, UA #### [address] [address] UA WBC LOADED None Seen Abnormal 06-12-2019 [facility] ([place]) (23174) Comment: Performed By: #### UAMICAO, UA #### [address] [address] .neuabs on Neutrophils (Bld) 6.30 2.85-6.16 10 3/mcL High 06-12-2019 A [facility] [#/Vol] [facility] ([place]) (55010) Comment: Performed By: #### GFR, BMP, PBNP, TROP #### [place] [id number] #### ANEU, ADIFF, CBC #### [address] [address] .gfr on 2019-06-12 GFR 63 ml/min/1.73sqm Normal 05-20 [facility] ([place]) (0000 0) Comment: Result Comment: GFR Population mean for Afri can [place]an, Non- Americans Ages 20-29 = 116 mL/min/1.73 [...] By: #### GFR, BMP, PBNP, TROP #### [place] [address] #### ANEU, ADIFF, CBC #### [address] [address] GFR Non- 52 ml/min/1.73sqm Normal 06-12-2019 [facility] ([place] (36601) Comment: Result Comment: GFR Population mean for Afri can [place], Non- Americans Ages 20-29 = 116 mL/min/1.73 [...] By: #### GFR, BMP, PBNP, TROP #### [place] [address] #### ANEU, ADIFF, CBC #### [address] [address] .auto diff on 06-12 Ammonia (P) [Mass/Vol] 0.70 0.15-1.00 10 3/mcL Normal 019 [facility] ([place]) (34367) Comment: Performed By: #### GFR, BMP, PBNP, TROP #### [place] [address] #### ANEU, ADIFF, CBC #### [address] [address] Basophils (Bld) 0.20 0.00-0.19 10 3/mcL High 06-12-2019 [facility] [#/Vol] [facility] ([place]) (09906) Comment: Performed By: #### GFR, BMP, PBNP, TROP #### [place] [address] #### ANEU, ADIFF, CBC #### [address] [address] Basophils/100 WBC (Bld) 1.5 0.0-2.5 % Normal 2018 [facility] ([place] (0000 0) Comment: Performed By: #### GFR, BMP, PBNP, TROP #### [place] [address] #### ANEU, ADIFF, CBC #### [address] [address] Eosinophils (Bld) 0.40 0.00-0.40 10 3/mcL Normal 06-12-2019 [facility] [#/Vol] [facility] ([place] (81705) Comment: Performed By: #### GFR, BMP, PBNP, TROP #### [place] [address] #### ANEU, ADIFF, CBC #### [address] [address] Eosinophils/100 WBC (Bld) 3.5 0.0-7.0 % Normal 05-20 [facility] ([place]) (0000 0) Comment: Performed By: #### GFR, BMP, PBNP, TROP #### [place] [address] #### ANEU, ADIFF, CBC #### [address] [address] Lymphocytes (Bld) 2.50 0.77-3.85 10 3/mcL Normal 06-12-2019 [facility] [#/[facility]] [facility] ([place]) ([address]) Comment: Performed By: #### GFR, BMP, PBNP, TROP #### [place] [address] #### ANEU, ADIFF, CBC #### [address] [address] Lymphocytes/100 WBC (Bld) 24.7 10.0-50.0 % Normal 05-20 [facility] ([place]) ([address]) Comment: Performed By: #### GFR, BMP, PBNP, TROP #### [place] [address] #### ANEU, ADIFF, CBC #### [address] [address] Monocytes/100 WBC (Bld) 6.9 1.7-13.0 % Normal 2018 [facility] ([place]) (0000 0) Comment: Performed By: #### GFR, BMP, PBNP, TROP #### [place] [address] #### ANEU, ADIFF, CBC #### [address] [address] Neutrophils/100 WBC (Bld) 63.4 37.0-80.0 % Normal 05-20 [facility] ([place]) ([address]) Comment: Performed By: #### GFR, BMP, PBNP, TROP #### [facility] [address] [place], [place] [address] #### ANEU, ADIFF, CBC #### [place] [id number] [place], [place] [address] urine w microsc on 2018-08-31 Appearance Nom (U) Cloudy CLEAR Normal 08-31-2018 [facility] ([address]) Comment: Performed By: #### [id number] ####[facility] OLIMLGAFRH5616 [place], [place] [address]Le# [phone] Color Nom (U) Yellow Normal 08-31-2018 [facility] (71563) Comment: Performed By: #### L600.0000 3 ####[facility] KVENKOSWWT4161 [place], [place] [address]Fl# [phone] Glucose mass conc (U) NEG mg/dL Normal 08-31-19 [facility] (47974) Comment: Performed By: #### L600.0000 3 ####[facility] MGXFGWCYVD2198 [place], [place] [address]Tv# HYALINE CAST 86 0-1 /LPF High 08-31-2018 [facility] (54930) Comment: Performed By: #### L600.0000 3 ####[facility] MPRTFTIDEC0929 [place], [place] [address]Of# [phone] Mucus Ql (Urine sed) TRACE Normal 9 [facility] (73351) Comment: Performed By: #### L600.0000 3 ####[facility] UXGDLCWMKC5853 [place], [place] [address]Ir# [phone] Protein mass conc (U) NEGATIVE NEGATIVE mg/dL Normal 08-31-19 [facility] (00 000) Comment: Performed By: #### L600.0000 3 ####[facility] PCHBICUBKJ0331 [place], [place] [address]Zm# [phone] SQUAMOUS EPIS 1 0-5 EPI/HPF Normal 08-31-2018 [facility] (44929) Comment: Performed By: #### L600.0000 3 ####[facility] ZCZAHGLWAS8358 [place], [place] [address]Bo# [phone] UA BACTERIA 4+ NONE /HPF Normal 08-31-2018 [facility] (81586) Comment: Performed By: #### L600.0000 3 ####[facility] PBIOMLOURU4517 [place], [place] [address]Ee# UA BILIRUBIN NEGATIVE Normal 08-31-2018 [facility] (30755) Comment: Performed By: #### L600.0000 3 ####[facility] UGWUTVBDYX5226 [place], [place] [address]Jg# UA BLOOD NEGATIVE NEGATIVE Normal 08-31-2018 [facility] (84721) Comment: Performed By: #### L600.0000 3 ####[facility] ONSDCSNYNN[address] [place] [address]Yc# [phone] UA KETONE NEGATIVE Normal 08-31-2018 [facility] (63645) Comment: Performed By: #### L600.0000 3 ####[facility] XFAQHGWNNC2703 [place], [place] [address]Ne# [phone] UA LK ESTERASE 500 NEGATIVE Normal 08-31-2018 [facility] (67837) Comment: Performed By: #### L600.0000 3 ####[facility] XEESDQHVVF2609 [place], [place] [address]Ch# [phone] UA NITRITE NEGATIVE NEGATIVE Normal 08-31-2018 [facility] (30239) Comment: Performed By: #### L600.0000 3 ####[facility] ZCKKBGRRPW5282 [place], [place] [address]Ie# UA PH 5.0 Normal 08-31-2018 [facility] (48082) Comment: Performed By: #### L600.0000 3 ####[facility] YNSVFNUCXY0671 [place], [place] [address]Rw# [phone] UA RBC 1 0-3 RBC/HPF Normal 08-31-2018 [facility] (58125) Comment: Performed By: #### L600.0000 3 ####[facility] CJBFGNSTID8968 [place], [place] [address]Um# [phone] UA SPEC GRAV 1.013 1.005-1.030 Normal 08-31-2018 [facility] (17359) Comment: Performed By: #### L600.0000 3 ####[facility] OQXOLVWWXJ7306 [place], [place] [address]Nk# [phone] UA UROBILINOGEN NEG Normal 08-31-2018 [facility] (89540) Comment: Performed By: #### L600.0000 3 ####[facility] QBLJRGFZEK9138 [place], [place] [address]Fe# [phone] UA WBC 293 0-5 WBC/HPF High 08-31-2018 [facility] (72269) Comment: Performed By: #### L600.0000 3 ####[facility] QAPTCKTZPG5405 [place], [place] [address]Lp# UA YEAST MANY NONE Normal 08-31-2018 [facility] (93722) Comment: Performed By: #### L600.0000 3 ####[facility] DEUWUGBVIG1761 [place], [place] [address]Fl# WBC CLUMPS FEW Normal 08-31-2018 [facility] (63823) Comment: Performed By: #### L600.0000 3 ####[facility] PBLTWXBFSZ9860 [place], [place] [address]Yq# gfr est on IF AMER 14 ML/MIN Normal 08-31-2018 [facility] (59599) Comment: Performed By: #### L500.0140 0, L500.86587, L550.14284 ####[facility] NFZMMZUHTJ5345 [place], [place] [address]Cl# [phone] IF non-AFR AMER 12 ML/MIN Normal 08-31-2018 [facility] (81375[facility] Comment: Performed By: #### L500.0140 0, L500.15264, L550.60091 ####[facility] ZJFGJVVUVH9158 [place], [place] [address]Xr# [phone] crp on 2018-08-31 CRP mass conc 4.13 0.00-0.32 MG/DL High 08-31-2018 [facility] (62279) Comment: Performed By: #### L500.0140 0, L500.85884, L550.83274 ####[facility] XLCVTHVKDS4278 [place], [place] [address]Je# [phone] cmp on 2018-08-31 Albumin mass conc 2.9 3.2-5.0 GM/DL Low 08-31-2018 [facility] (50695) Comment: Performed By: #### L500.0140 0, L500.84479, L550.59166 ####[facility] HWYOCXETEV1489 [place], [place] [address]Ua# [phone] Albumin/Globulin mass ratio 0.9 0.8-2.0 {ratio} Normal [facility] Can ton (33099) Comment: Performed By: #### L500.0140 0, L500.05984, L550.34555 ####[facility] NEVJLWAZGC1052 [place], [place] [address]Nm# [phone] ALK PHOS 179 45-117 U/L High 08-31-2018 [facility] (07701) Comment: Performed By: #### L500.0140 0, L500.60088, L550.62851 ####[facility] DEYSFILRWK9785 [place], [place] [address]Tp# [phone] ALT enzyme act/vol 78 13-61 IU/L High 08-31-2018 [facility] (35218) Comment: Result Comment: RESULTS MAY BE FALSELY DEPRESSED AFTER THE ADMINISTRATION OFSULFASALAZINE AND/OR SULFA PYRIDINE. Performed By: #### L500.0140 0, L500.19083, L550.83554 ####[facility] XBDJBYHGKV8344 [place], [place] [address]Nh# [phone] Anion gap molar conc 8 5-16 MMOL/L Normal 9 [facility] (72639) Comment: Performed By: #### L500.0140 0, L500.62482, L550.47476 ####[facility] BATLVHIXUK5806 [place], [place] [address]Pz# [phone] BILI TOTAL 1.0 0.2-1.0 MG/DL Normal 08-31-2018 [facility] (17045) Comment: Performed By: #### L500.0140 0, L500.79328, L550.45193 ####[facility] SPYMSPWRWC2255 [place], [place] [address]Oe# [phone] Calcium mass conc 8.5 8.5-10.1 MG/DL Normal 08-31-2018 [facility] (02944) Comment: Performed By: #### L500.0140 0, L500.15481, L550.81985 ####[facility] BHYOYLIYRN3610 [place], [place] [address]Il# [phone] Chloride molar conc 94 98-107 MMOL/L Low 08-31-2018 [facility] (56022) Comment: Performed By: #### L500.0140 0, L500.55074, L550.38624 ####[facility] HTFTQAQSFS6108 [place], [place] [address]Uu# [phone] CO2 molar conc 28 21-32 MMOL/L Normal 08-31-2018 [facility] (17681) Comment: Performed By: #### L500.0140 0, L500.89099, L550.31006 ####[facility] HSHRCBEYQZ4304 [place], [place] [address]Sq# [phone] Creatinine mass conc 3.850 0.510-0.950 MG/DL High 019 [facility] (00 000) Comment: Result Comment: Patients rec eiving either N-Acetylcysteine (NAC) orMetamizole prior to venipu ncture, may have falsely depressedresults. Performed By: #### L500.0140 0, L500.05470, L550.23551 ####[facility] OJDVELYVXW7295 [place], [place] [address]Mj# [phone] Globulin mass conc (S) 3.3 2.2-4.2 GM/DL Normal 019 [facility] (00 000) Comment: Performed By: #### L500.0140 0, L500.40429, L550.39366 ####[facility] ZTKQQCOLVS4883 [place], [place] [address]Xb# [phone] Glucose mass conc 133 70-100 MG/DL High 08-31-2018 [facility] (40203) Comment: Result Comment: 70-100- Norm al Fasting; 100-125 Impaired Fasting; greaterthan 126 on more than one result- Diabetes. ADA guidelines.Results may be falsely elevated afte r the administration ofSulfapyridine.Results may be falsely depressed after t he administration ofSulfasalazine. Performed By: #### L500.0140 0, L500.00908, L550.35716 ####[facility] CXCTHFEZCU8029 [place], [place] [address]Fp# [phone] Potassium molar conc 7.0 3.5-5.1 MMOL/L Critically high [facility] [place] (41413) Comment: Result Comment: Slight Hemol ysis, Result may be falsely increased. CriticalResult(s) Called at: 18:00:05 on 08/31/2018 by: milady hinson and read back by: TAE Roger Performed By: #### L500.0140 0, L500.91492, L550.18766 ####[facility] BRVNHISGOO1936 [place], [place] [address]Jw# [phone] Protein mass conc 6.2 6.0-8.5 GM/DL Normal 08-31-2018 [facility] (56656) Comment: Performed By: #### L500.0140 0, L500.65738, L550.08048 ####[facility] FDGFIVAHAS5188 [place], [place] [address]Eq# [phone] SGOT (AST) 102 8-34 U/L High 08-31-2018 [facility] (86814) Comment: Result Comment: Slight Hemol ysis, Result may be falsely increased.RESULTS MAY BE FALSELY DEPRESSED AFT ER THE ADMINISTRATION OFSULFASALAZINE AND/OR SULFAPYRIDINE. Performed By: #### L500.0140 0, L500.89153, L550.69384 ####[facility] LWIOHFSXJD2514 [place], [place] [address]Ar# [phone] Sodium molar conc 129 136-145 MMOL/L Low 08-31-2018 [facility] (54944) Comment: Performed By: #### L500.0140 0, L500.42102, L550.37884 ####[facility] NNLKWYTPGA5607 [place], [place] [address]Iz# [phone] Urea nitrogen mass conc 62 7-26 MG/DL High 2018 [facility] (13705) Comment: Performed By: #### L500.0140 0, L500.52940, L550.42420 ####[facility] MBGKUDBPBL2578 [place], [place] [address]Oi# [phone] Urea nitrogen/Creatinine mass 16 15-24 mg/mg Normal 08-31-2018 [facility] ratio [place] (00 000) Comment: Performed By: #### L500.0140 0, L500.30855, L550.25727 ####[facility] ZZUYWFZHNC3038 [place], [place] [address]Hw# [phone] cbc w/diff on 08-31 BASO ABS 0.10 0-0.2 K/CU MM Normal 08-31-2018 [facility] [place] (10103) Comment: Performed By: #### L200.0005 0 ####[facility] GCNTETMOQG4124 [place], [place] [address]Ky# Basophils/100 WBC (Bld) 0.3 0-2 % Normal 2018 [facility] [place] (72635) Comment: Performed By: #### L200.0005 0 ####[facility] TXELWNMJHR[address] [place] [address]Lt# EOS ABS 0.30 0-0.5 K/CU MM Normal 08-31-2018 [facility] [place] (22374) Comment: Performed By: #### L200.0005 0 ####[address] [address]Vz# [phone] Eosinophils/100 WBC (Bld) 1.4 0-5 % Normal 08-19 [facility] (91439) Comment: Performed By: #### L200.0005 0 ####[facility] PCMMVBLBHT[address] [place] [address]Eb# [phone] Erythrocyte distribution width 16.5 11-14.5 % High 08-31-2018 [facility] Ratio (RBC) [place] ( [address]681) Comment: Performed By: #### L200.0005 0 ####[facility] FLKUDJPNUY[address] [place] [address]Vs# Hematocrit Volume Fraction 35.7 35.0-47.0 % Normal [facility] ([facility] [place] (00 000) Comment: Performed By: #### L200.0005 0 ####[facility] YHGWZKWAQY[address] [place] [address]Eh# [phone] Hemoglobin mass conc (Bld) 11.1 11.5-15.5 G/DL Low [facility] [place] (00 000) Comment: Performed By: #### L200.0005 0 ####[facility] ULGLISGZNI[address] [place] [address]Dk# IMMATR GRAN ABS 0.10 Less than 2 K/CU MM Normal 08-31-2018 [facility] ( 000) Comment: Performed By: #### L200.0005 0 ####[address] [address]Hw# [phone] IMMATURE GRAN % 0.6 Less than 2 % Normal 08-31-2018 [facility] (82390) Comment: Performed By: #### L200.0005 0 ####[address] [address]Me# [phone] Lymphocytes #/vol (Bld) 4.10 0.9-4.4 K/CU MM Normal 2018 [facility] (00 000) Comment: Performed By: #### L200.0005 0 ####[address] [address]Cl# Lymphocytes/100 WBC (Bld) 18.5 20-40 % Low 08-19 [facility] (00331) Comment: Performed By: #### L200.0005 0 ####[address] [address]An# MCHC mass conc (RBC) 31.1 32.0-36.0 GM/DL Low 9 [facility] (74163) Comment: Performed By: #### L200.0005 0 ####[address] [address]Mr# MCV Entitic volume (RBC) 83.6 80.0-99.0 fl Normal 08-31 [facility] (00 000) Comment: Performed By: #### L200.0005 0 ####[address] [address]Eu# MONO ABS 2.20 0.1-1.1 K/CU MM High 08-31-2018 [facility] (95683) Comment: Performed By: #### L200.0005 0 ####[facility] NSAJPFEZYT6815 [place], [place] [address]Qf# [phone] Monocytes/100 WBC (Bld) 9.8 2-10 % Normal 2018 [facility] (00608) Comment: Performed By: #### L200.0005 0 ####[facility] IFOFLTMDPS4025 [place], [place] [address]Qx# NEUTROPHIL ABS 15.50 2.0-8.3 K/CU MM High 08-31-2018 [facility] (15100) Comment: Performed By: #### L200.0005 0 ####[facility] [address]POXPSPZ[address] [place] [address]Dh# Neutrophils/100 WBC (Bld) 69.4 45-75 % Normal 08-19 [facility] (30143) Comment: Performed By: #### L200.0005 0 ####[facility] NKRAQAMAHI[address] [place] [address]Qj# [phone] Nucleated RBC/100 WBC 0.0 Less than 1 % Normal 2018 [facility] Ratio (Bld) [place] ( [address]) Comment: Performed By: #### L200.0005 0 ####[facility] AMQCLFIJBU[address] [place] [address]Si# Platelet mean volume 11.0 9.4-12.4 fL Normal 9 [facility] Entitic volume (Bld) [place] (69183) Comment: Performed By: #### L200.0005 0 ####[facility] HLILXEJIRB[address] [place] [address]Uc# [phone] Platelets #/vol (Bld) 401 150-450 K/CU MM Normal 08-31-19 [facility] (00 000) Comment: Performed By: #### L200.0005 0 ####[facility] VJTHUYCXWO[address] [place] [address]Pf# [phone] RBC #/vol (Bld) 4.27 3.90-5.30 M/CU MM Normal 08-31-2018 [facility] (52046) Comment: Performed By: #### L200.0005 0 ####[facility] OAHCWQRZBJ8168 [place], [place] [address]Ke# WBC #/vol (Bld) 22.3 4.5-11.0 K/CUMM High 08-31-2018 [facility] (12323) Comment: Performed By: #### L200.0005 0 ####[facility] VUOJFMGAMG5687 [place], [place] [address]Ov# progress on 2018-07 Protein HNO ID: [id number]: Ayana ([facility]) ShannonService: Normal 07-23-2018 [facility] (none)Author Type: Nurse PractitionerType: Progress Clinic conc NotesFiled: 07/23/2018 1:20 PMNote Text:Crystal Cramer is a 62 year old female. Patient presents (00179) with:New PatientPMH: DM, Fibromyalgia, HTN, HyperlipidemiaCrystal is [...] FIRST FOR MY DOCUMENTATION TO PROVIDE CARE, HELPINSUBestTravelWebsites AND COLLEAGUES TO HAVE NEUROLOGICAL CONTEXT OF [...] BPMetformin Other: See Comments Not Specified Side Effect/Erplxwzvjbw96/10/2017 Past Updates...MigrainesPAST MEDICAL HISTORY:ACTIVE PROBLEM LISTTuberculosis of Lung, Nodular, Confirmation UnspecifiedDiarrheaNausea AND VomitingPAST SURGICAL HISTORYProcedure Laterality Date- APPENDECTOMY 1973- [facility]- COLONOSCOPY W/BX 05/27/07- EGD [...] intactGood saccades and pursuitsNo nystagmusHearing intactGood upgazeVisual advalos are full to confrontation.Facial, motor and sensory exam is symmetricEqual v1,V2, X0Yyvimw is in midline. No tongue fasciculation.Palate is upgoing bilaterallySCM and trapezius are full.Shoulder shrug intact?Motor Exam:?Upper extremity motor exam is 5/5 in deltoid, 5/5 triceps 5/5biceps, 5/5wrist extension, and 5/5 hand librarian helper. Finger extensor 5/5. Finger flexor5/5. Pronation and [...] Babinski). No clonus of ankles.?Coordination:Finger-to- nose-finger and ndrg-ou-eccc intact bilaterally. No ataxia ofarms. No limb [...] visit, with more than 50% of the fvhzkywrl-ww-ymvz time of the visit in counseling / coordination of care.ACTIVE PROBLEM LISTTuberculosis of Lung, Nodular, Confirmation UnspecifiedDiarrheaNausea AND VomitingNo orders found for this visit on 07/23/18.Ayana Jamison MSN, BROWNING PROCESSOR, TSA SCREENER-C1. This office note has been dictated and [...] 07-23-2018 Shauna and (NEN) --------BELACRYSTAL Tricia Arriola ([id number]) 1955 FDat e Time Provider Rpkoixajqy75/5/18 12:45 PM AYANA JAMISON (JOSEP) ANGELINA Fiore During your visit today, we recorded the following information about you: Pulse Respiration Blood (86616) pressure Weight 69/minute 18 /minute 104/46 129.3 [...] Date- APPENDECTOMY 1973- COLONOSCOP W/ OR W/O [facility] SPEC 06/19/2013 Colonoscopy- COLONOSCOPY W/B X 05/27/07- [...] motor and sensory exam is symmetricEqual v1,V2, S4Qpbaoo is in midline. No tongue fascic ulation.Palate is upgoing bilaterallySCM and trapezius are full.Shoulder shrug intact?Motor Exam:?Upp er extremity motor exam is 5/5 in deltoid, 5/5 triceps 5/5biceps, 5/5 wristextension, and 5/5 hand librarian helper. Finger extensor 5/5. Finger flexor 5/5.Pronation and [...] Babinski). No clonus of ankles.?Coordination:Finger-to- nose-finger and vrtw-gh-ykoc intact bilatera lly. No ataxia of arms.No [...] of d iabetes. In review of her K5Gjfqktx, she has been diabetic for some time [...] m ore than 50% of the total iycn-nf-tiwoldgx of the visit in counseling / coordination of care.ACTIVE PROBLEM LISTTuberculosis of Lung, Nodular, Confirmation UnspecifiedDiarrheaNausea AN D VomitingNo orders found for this visit on 07/23/18.Ayana Jamison MSN, BROWNING PROCESSOR, TSA SCREENER-C1. This office no te has been dictated [...] MONTELUKAST 10 MG TABLET >> Ayana Jamison APRN.PRESCHOOL PROGRAM DIRECTOR 07/23/2018 12:17 PM >> AYANA JAMISON Wed [...] 05/23/2018 Disc: Discontinued by PatientEncounter Number: [id number] Status:Closed by AYANA JAMISON on 07/23/18 progress on 2018-05 Protein mass HNO ID: [id number]: Carlyn arriola 05-23-2018 [facility] conc (Straw Hat Plunger Operator) FulkService: (none)Author Adebayo Type: Nurse PractitionerType: ([id number]) Progress NotesFiled: 05/23/2018 12:48 PMNote Text:HPI Crystal [...] [facility] recommend patient be seen at nearest ED,refused Squad friend present will transport, report called to JOSEP Parra on 2018-05-23 CNCHRISTIE Office Visit Normal 05-23-2018 [place] and (UCWSTR) --------BELACRYSTAL Tricia Arriola ([id number]) 1955 FDat e Time Provider Bzycymdwih73/5/18 12:15 PM [facility] During [place] your visit today, we [...] friendpresent will transport , report called to [place] [facility].Carlyn Wu, CNPReferring Provider: SELF [200]Allergies As of Date: 05/23/2018 Noted Allergy Reaction BACTRIM (SULFAMETHOXAZOLE-TRIMETH* 4 - HivesTORADOL (KETOROLAC) 03/22/2006 14 - Other: See Comments Comments: Increase BPCIPROFL OXACIN 06/10/2013 2 - RashFLEXERIL (CYCLOBENZAPRINE) 06/10/2013 2 - RashMETFORMIN 06/28/2017 14 - Other: See Comments Comments: MigrainesDate Reviewed: 05/23/2018Reviewed by: Carole NguyenNorristown State Hospital) KENROY Henriquez - Fully AssessedReason for Visit: Fall [218] Cmt: pain in left side ribs, fell yesterday into [employer] counter, trouble breathing todayPrimary Visit Diagnosis:Borderline low [...] AND vomiting [R11.2] INVALID FOR*Encounte r Number: [id number] Status:Closed by CARLYN WU CNP on 05/23/18 nino creatinine on 2017-12-31 Creatinine mass conc 1.2 0.7-1.4 mg/dL Normal 8 [facility] (07345) progress on 2017-12 Protein mass HNO ID: [id number]: Carole Kumar rmal 12-31-2017 [facility] Hieu Bashir CtService: (none)Author Clinic Type: (none)Type: Progress Spray NotesFiled: 12/31/2017 12:48 PMNote (46134) Text: Radiology Service Progress NotePATIENT NAME: Crystal OrtizsMRN: [id number] OF SERVICE: December 31, 2017TIME: 12:48 PMPATIENT IDENTITY VERIFICATION COMPLETED USING TWO (2) METHODS: Patientconfirmed name verbally and Date of .PATIENT GENDER DATA: Female. status: : NoBreastfeeding status: NO.PATIENT RELEVANT IMPLANT DATA REVIEWED: YesCONTRAST INDUCED NEPHROPATHY RISK FACTORS: Patient age > 60 yearsCREATININE:CreatinineDate Value Ref Range Uxqmgj8804/28/2015 0.87 0.51 - 0.95 mg/dL Final04/27/2015 0.86 [...] Report* * *DATE OF Norm al 12-31-2017 Spray RAMO EXAM: Dec 31 2017 9:51AM [facility]82 - [facility] SCREENING W RAMO / Fiore (38759) REASON: Other disorders of nervous system * * * * Physician Interpretation * * * *RESULT: #[id number] - KARTIK SCREENING W TOMOBILATERAL DIGITAL SCREENING MAMMOGRAM TOMOSYNTHESIS WITH CAD: 12/31/2017HISTORY: Other Disorders Of Nervous System\ Screening Mammogram - patient reports NO breast symptoms /Patient has signed release for outside images\[facility].RESULT:TECHNIQUE: The study was acquired using full field [...] physician.Maral Kennedy M.D.jr,as/penrad:12/31/2017 14:00:45Imaging Technologist: Janneth BLACKMAN)(Sally), [facility] Centerletter sent: Normal over 40Mammogram BI-RADS: 1 NegativeTranscriptionist: MaylinTranscribe Date/Time: Dec 31 2017 9:52ADictated by: FABBY KENNEDY MDThis examination was interpreted and the report reviewed and electronically signed by: MARAL HALLMAN MD on Dec 31 2017 2:00PM [id number] ct chest w ivcon on 2017-12-31 CT CHEST W * * *Final Report* * *DATE OF EXAM: Catrachita landry 12-31-2017 [facility] IVCON Dec 31 2017 12:22PM [facility] 0539 - CT Spray CHEST W IVCON / [id number] REASON: Other disorders of nervous system * [...] represent herniated intra-abdominal fat or a lipomatous lesion.Meal Room Hand: ABRAM Transcribe Date/Time: Dec 31 2017 2:47PDictated by : VERONICA IBARRA MDThis examination was interpreted and the report reviewed and electronically signed by: VERONICA IBARRA MD on Dec 31 2017 3:07PM [id number] ct abd/pel w ivcon on 2017-12-31 CT ABD/PEL * * *Final Report* * *DATE OF EXAM: December12-31-2017 [facility] IVCON 2017 12:22PM [facility] 0530 - CT ABD/PEL W [facility] IVCON / Spray REASON: Other disorders of nervous (87047) system * * * * Physician Interpretation [...] may be contributing to the patient's symptoms. Meal Room Hand: ABRAM Transcribe Date/Time: Dec 31 2017 1:21PDictated by : PELON GARRETT MDThis examination was interpreted and the report reviewed and electronically signed by: PELON GARRETT MD on Dec 31 2017 1:32PM [id number] cnco on 2017-12-31 [facility] HNO ID: [id number]: Normal 12-17 [facility] Mammography CoordinatorService: Spray ([id number]) (none)Author Type: PhysicianType: LetterFiled: 01/01/2018 11:32 PMNote Text:December 31, 2017 PID: [id number] [place], [place] [address]Xrya Ms. Cramer,We are pleased to inform you that the results of your recent breastimaging exam on 12/31/2017 are normal. Early detection of cancer is veryimportant. We also understand recommendations regarding breast cancerscreening are controversial. Please discuss with your primary careprovider which strategy is best for you and whether a mammogram is rightfor you.Your imaging studies and report will [facility] part [facility] permanent medical [facility] and are available for yourcontinuing care.Thank you for allowing us to help in meeting your health care needs.Sincerely,Dr. HallmanInterprejania RadiologistWooster Specialty Center (Normal over 40) progress on 2017-12 Protein mass HNO ID: [id number]: Mukul payne 12-18-2017 Spr[facility] conc ClineService: (none)Author Type: Clinic PhysicianType: Progress NotesFiled: Spray 12/18/2017 10:45 AMNote Text:FOLLOW UP ([id number]) VISITCHIEF COMPLAINTPatient presents with:Established Patient: nausea, constipationMs. [...] Normal 12-18-2017 [place] and (GASTMN) --------CRYSTAL CRAMER ([id number]) 1955 FDat e Time Provider Department12/18/17 10:10 AM MUKUL STEVEN During Clev eland your visit today, we recorde d the following information about you: Temperature Pulse Blood pressure (43285) Weight 98.3 degrees 79/minut e 139/69 120.8 [...] W IVCONMukul Steven 12/18/2017Referring Provider: YOU PARKS [[id number]]Allergies As of Date: 12/18/2017 Noted Allergy ReactionBACTRIM [...] synd danica [G98.8]Order(s):CREATININE BLD [SQCRET] Order #: [id number] FUTURE KARTIK SCREENING [[id number]] Orde r #: [id number] FUTURE CT ABD/PEL W IVCON [[id number]] Order #: [id number] FUTURE CT CHEST W IVCON [[id number]] Order #: [id number] FUTURE iv contrast (radiology procedure)CT Chest ABD/PEL-Inject, [...] nursing protocol in the CT contrast administration [facility].Disp: 1 EachRfl: 0 enteric contrast [...] as designated per enteric contrast guidelinesEncounter Number: [id number] Status:Closed by MUKUL STEVEN DO on 12/18/17 progress on 2017-10 Protein mass HNO ID: [id number]: Cele (Rn) Normal 10-22-2017 Spray leno Vargas, RNService: (none)Author Type: Clinic Registered NurseType: Progress Spray NotesFiled: 10/22/2017 2:24 PMNote ([id number]) Text:SmartPill Test Report - [id number] Test start date: 10/11/2017 9:48 AM Interpretation date: 10/22/2017 Ordering physician: Radha Aaron Information Name: Crystal Cramer ID: [id number] date: 1955 Height ft. in.: 5' 6 [...] Normal 10-22-2017 Honey hammer (GASTMN) --------CRYSTAL CRAMER ([id number]) 1955 [facility] e Time Provider Department10/22/17 CELE VARGAS (RN) GASTMN During your [facility] visit today, we recorded the following information about you:Cele Vargas RN, RN 10/22/2017 2:24 PM ([id number]) [facility] Test Report - [id number] Test start date: 10/11/2017 9:48 AM Interpretation date: 8 Ordering physician: Radha Aaron Information Name: Crystal Cramer ID: [id number] [facility] h date: 1955 Height ft. in.: 5' [...] FOR*Follow-up and Disposition History RecordedEncounter Bushra mber: [id number] Status:Closed by CELE VARGAS on 10/22/17 cnpn on 2017-10-22 [facility] 10-22-2017 Adebayo (JOSE CARLOS) --------CRYSTAL CRAMER ([id number]) 1955 FDat e Time Provider Department10/22/17 MUKUL STEVENCA During your visit Juwan monzon today, we recorded the aldo gooden information about you:Manuel Meza, RN, RN 10/22/2017 5:10 PM ([id number]) SignedPatient is calling Dr. Steven's office to [...] Explained that appeal letter was faxed to [facility] regarding he r IVIG therapy. Offered to [...] By: Manuel Meza RN In Department: [facility] PHANDiamond Grove Centerpradeep As of Date: 10/22/2017 Noted Allergy ReactionBACTRIM [...] on 2017-09 Protein mass conc HNO ID: [id number]: Normal 10-11-2017 [facility] Cele (Rn) Azael Vargas ([id number]) RNService: (none)Author Type: Registered NurseType: Progress NotesFiled: 10/11/2017 10:14 AMNote Text:Referring MD: ?Teodoro Aaron: ?gastroparesisDate of SmartPill Procedure: ?10/11/2017 ?SmartPill ingested withoutdifficulty at 10:00am. ?Discharge instructions completed and given topatient.Return of Equipment: ?Micah Vargas RN Caps[facility] Endoscopy Nurse cnpn on 2017-10-08 CNPN Telephone Normal 10-08-2017 Spray (GASTMN) --------CRYSTAL CRAMER [facility] ([id number]) 1955 FDat e Time Provider Department10/08/17 MUKUL STEVEN GASTCA During your Spray visit today, we recorded the following information about you:Manuel Meza RN, RN 10/08/2017 4:16 PM (00 000) SignedContacted [employer] [phone] (option 1 and then option 0) to obtain acopy of patient's denial letter for IVIG. They are to fax to the office today.Manuel Meza, RN, RN 10/08/2017 5:19 PM SignedReceived copy of deng arriola letter from [employer] 10/08/17 and forwarded toStacey at [facility].Allergies As of Date: 10/08/2017 Noted Allergy Reacti onBACTRIM (SULFAMETHOXAZOLE-TRIMETH* 4 - HivesCIPROFLOXACIN 06/10/2013 16 - UnknownFLEXERIL (CYCLOBENZAPRINE) 06/10/2013 16 - UnknownMETFORMIN 06/28/2017 14 - Other: See Comments Comments: MigrainesTORADOL (KETOROLAC) 03/22/2006band aids [Other] 05/27/2007Date Reviewed: 07/31/2017Reviewed by: Mukul Steven - Fully AssessedReason for Visit: Care Coordination [4067] Cmt: Gastroparesis Clinic: Ivig denial letter r [...] cnpn on 2017-09-12 CNPN Telephone Normal 09-12-2017 Spray (GASTMN) --------CRYSTAL CRAMER ([id number]) [address] [facility] Provider Department09/12/17 MUKUL STEVEN [facility] During your Spray visit today, we recorded the following information [...] Thyrotropin Qn 2.260 0.400-5.500 uU/mL Normal 07-31-2017 [facility] [place] [facility] ([id number]) Comment: Performed By: #### CK, FT4, TSH, LD6, HBA1C, LACPYR, AAQTPL, GADCAB, CARNPL, PLTHY ####[facility] L [address] [place], [place] [phone]#### CASRFX , LG1RFX, PARNEO #### [facility] [address] [place], [place] [phone] progress on 2017-07 Protein mass HNO ID: [id number]: Manuel landry 07-31-2017 [facility] (Rn) LAURIE Mezaervice: Clinic (none)Author Type: Registered Spray NurseType: Progress NotesFiled: ([id number]) 07/31/2017 10:55 AMNote Text:Met with patient for [...] RN In Department:GASTROENTEROLOGY Protein mass HNO ID: [id number]: Rayne stone 07-31-2017 Spray leno GuilloryService: Clinic (none)Author Type: Azael morrison PsychologistType: Progress (50094) NotesFiled: 07/31/2017 10:40 AMNote Text:Behavioral MedicineDigestive Disease and Surgery InstituteName: Crystal Mallory#: [id number]: 07/31/17Time: [address]Ref[address]: Dr. Cruz for [...] for her chronic pain, and thebenefits of exercise.Rayne Odom, Ph.D. plasma thymidine det on 2017-07-31 Plasma Thymidine Det View results in Normal [facility] Scanned Documents link Spray (33146) when available. Comment: Performed By: #### CK, FT4, TSH, LD6, HBA1C, LACPYR, AAQTPL, GADCAB, CARNPL, PLTHY ####[facility] [address] [place], [place] [phone]#### CASRFX , LG1RFX, PARNEO #### [facility] [facility] [address] [place], [place] [phone] paraneoplast autoabs on 2017-07-31 ACh Receptor Bind Ab 0.00 <=0.02 nmol/L Normal 7 [facility] (22455) Comment: Result Comment: (NOTE)------ ADDITIONAL INFORMATION --This test was developed and its performance characteristicsdetermined by [facility] in a manner consistent with CLIArequirements. This test has not been cleared or approved bythe U.S. Food and Drug Administration. Performed By: #### CK, FT4, TSH, LD6, HBA1C, LACPYR, AAQTPL, GADCAB, CARNPL, PLTHY ####[facility] [address] [place], [place] [phone]#### CASRFX , LG1RFX, PARNEO #### [address] [phone] AChR Ganglionic Neur 0.00 <=0.02 nmol/L Normal 7 [facility] (49165) Comment: Result Comment: (NOTE)------ ADDITIONAL INFORMATION --This test was developed and its performance characteristicsdetermined by [facility] in a manner consistent with CLIArequirements. This test has not been cleared or approved bythe U.S. Food and Drug Administration. Performed By: #### CK, FT4, TSH, LD6, HBA1C, LACPYR, AAQTPL, GADCAB, CARNPL, PLTHY ####[facility] [place], [place] [phone]#### CASRFX , LG1RFX, PARNEO #### [facility] [place], [place] [phone] Amphiphysin Ab, S Negative <1:240 Normal 07-31-2017 [facility] (76396) Comment: Result Comment: (NOTE)------ ADDITIONAL INFORMATION --This test was developed and its performance characteristicsdetermined by [facility] in a manner consistent with CLIArequirements. This test has not been cleared or approved bythe U.S. Food and Drug Administration. Performed By: #### CK, FT4, TSH, LD6, HBA1C, LACPYR, AAQTPL, GADCAB, CARNPL, PLTHY ####[facility] [address] [place], [place] [phone]#### CASRFX , LG1RFX, PARNEO #### [address] [phone] ERINN 1, S Negative <1:240 Normal 07-31-2017 [facility] (10276) Comment: Performed By: #### CK, FT4, TSH, LD6, HBA1C, LACPYR, AAQTPL, GADCAB, CARNPL, PLTHY ####[facility] [address] [place], [place] [phone]#### CASRFX , LG1RFX, PARNEO #### [address] [phone] ERINN 2, S Negative <1:240 Normal 07-31-2017 [facility] (06649) Comment: Result Comment: (NOTE)------ ADDITIONAL INFORMATION --This test was developed and its performance characteristicsdetermined by [facility] in a manner consistent with CLIArequirements. This test has not been cleared or approved bythe U.S. Food and Drug Administration. Performed By: #### CK, FT4, TSH, LD6, HBA1C, LACPYR, AAQTPL, GADCAB, CARNPL, PLTHY ####[facility] [address] [place], [place] [phone]#### CASRFX , LG1RFX, PARNEO #### [facility] [place], [place] [phone] ERINN 3, S Negative <1:240 Normal 07-31-2017 [facility] (78593) Comment: Result Comment: (NOTE)------ ADDITIONAL INFORMATION --This test was developed and its performance characteristicsdetermined by [facility] in a manner consistent with CLIArequirements. This test has not been cleared or approved bythe U.S. Food and Drug Administration. Performed By: #### CK, FT4, TSH, LD6, HBA1C, LACPYR, AAQTPL, GADCAB, CARNPL, PLTHY ####[place] [address] [place], [place] [phone]#### CASRFX , LG1RFX, PARNEO #### [address] [phone] Anti-glial Nuc Ab 1 Negative <1:240 Normal 07-31-2017 [facility] (42074) Comment: Result Comment: (NOTE)------ ADDITIONAL INFORMATION --This test was developed and its performance characteristicsdetermined by [facility] in a manner consistent with CLIArequirements. This test has not been cleared or approved bythe U.S. Food and Drug Administration. Performed By: #### CK, FT4, TSH, LD6, HBA1C, LACPYR, AAQTPL, GADCAB, CARNPL, PLTHY ####[facility] [place], [place] [phone]#### CASRFX , LG1RFX, PARNEO #### [facility] [place], [place] [phone] Ca Ch Bind Ab,N Type 0.00 <=0.03 nmol/L Normal [facility] (63800) Comment: Result Comment: (NOTE)------ ADDITIONAL INFORMATION --This test was developed and its performance characteristicsdetermined by [facility] in a manner consistent with CLIArequirements. This test has not been cleared or approved bythe U.S. Food and Drug Administration. Performed By: #### CK, FT4, TSH, LD6, HBA1C, LACPYR, AAQTPL, GADCAB, CARNPL, PLTHY ####[facility] [address] [place], [place] [phone]#### CASRFX , LG1RFX, PARNEO #### [address] [phone] Ca Chn Bind Ab, P/Q 0.00 <=0.02 nmol/L Normal 07-31-2017 [facility] (61227) Comment: Result Comment: (NOTE)------ ADDITIONAL INFORMATION --This test was developed and its performance characteristicsdetermined by [facility] in a manner consistent with CLIArequirements. This test has not been cleared or approved bythe U.S. Food and Drug Administration. Performed By: #### CK, FT4, TSH, LD6, HBA1C, LACPYR, AAQTPL, GADCAB, CARNPL, PLTHY ####[facility] [address] [place], [place] [phone]#### CASRFX , LG1RFX, PARNEO #### [facility] [place], [place] [phone] CRMP 5 IgG, S Negative <1:240 Normal 07-31-2017 [facility] (74660) Comment: Result Comment: (NOTE)------ ADDITIONAL INFORMATION --This test was developed and its performance characteristicsdetermined by [facility] in a manner consistent with [facility]Hon[facility]. This test has not been cleared or approved bythe U.S. Food and Drug Administration. Performed By: #### CK, FT4, TSH, LD6, HBA1C, LACPYR, AAQTPL, GADCAB, CARNPL, PLTHY ####[facility] [address] [place], [place] [phone]#### CASRFX , LG1RFX, PARNEO #### [facility] [place], [place] [phone] Interpretive Comment (NOTE) Normal 7 [facility] (73408) Comment: Result Comment: Reflexed maria del carmen t(s) performed per testing algorithm.*The following antibody was ident ified: voltage gatedpotassium channel (VGKC-complex); negative for leucine-rich, glioma inactivated 1 protein-IgG (LGI1) andContactin-associat ed omlfuya-8-DbO (CASPR2). * The resultsof a positive VGKC-complex antibo dy with negative LGI1 andCASPR2-IgGs needs to be interpreted with caution. Th edetection of the VGKC-complex antibodies in isolation doesnot define an autoimmune neurological disorder. * Aparaneoplastic basis should be considered, according toage, sex, and other risk factors. * References: Sadiq Medina,Garcia JORGENSEN, Otf Chong, Socorro Medina, Onofre JW, Candelario JE,Eusebio A, Severino griffin AL, Dung RE, Kahlil Chong, Elver HARMAN,Ady VA, Rasheed CJ. Expa nded phenotypes and outcomes [id number] LGI1/CASPR2-IgG positive pat ients. Annals of Umtljivam9922; 82:79-92. * Doyle B, Jeremie M, Karla [...] LGI1 and Caspr2 antibodies.N eurology, 2016; 86; 4277-8793. Performed By: #### CK, FT4, TSH, LD6, HBA1C, LACPYR, AAQTPL, GADCAB, CARNPL, PLTHY ####[facility] [address] [place], [place] [phone]#### CASRFX , LG1RFX, PARNEO #### [address] [phone] Neur V-G K+ Chann Ab 0.11 <=0.02 nmol/L High 7 [facility] (36203) Comment: Result Comment: (NOTE)------ ADDITIONAL INFORMATION --This test was developed and its performance characteristicsdetermined by [facility] in a manner consistent with CLIArequirements. This test has not been cleared or approved bythe U.S. Food and Drug Administration. Performed By: #### CK, FT4, TSH, LD6, HBA1C, LACPYR, AAQTPL, GADCAB, CARNPL, PLTHY ####[facility] [address] [place], [place] [phone]#### CASRFX , LG1RFX, PARNEO #### [facility] [place], [place] [phone] PARNEO Reflex Tests None. Normal 07-31-2017 [facility] () Comment: Result Comment: (NOTE)------ ADDITIONAL INFORMATION --This test was developed and its performance characteristicsdetermined by [facility] in a manner consistent with CLIArequirements. This test has not been cleared or approved bythe U.S. Food and Drug Administration. Performed By: #### CK, FT4, TSH, LD6, HBA1C, LACPYR, AAQTPL, GADCAB, CARNPL, PLTHY ####[facility] [address] [place], [place] [phone]#### CASRFX , LG1RFX, PARNEO #### [address] [phone] HEEL STAINER 1, S Negative <1:240 Normal 07-31-2017 [facility] (97933) Comment: Result Comment: (NOTE)------ ADDITIONAL INFORMATION --This test was developed and its performance characteristicsdetermined by [facility] in a manner consistent with CLIArequirements. This test has not been cleared or approved bythe U.S. Food and Drug Administration. Performed By: #### CK, FT4, TSH, LD6, HBA1C, LACPYR, AAQTPL, GADCAB, CARNPL, PLTHY ####[facility] [address] [place], [place] [phone]#### CASRFX , LG1RFX, PARNEO #### [facility] [place], [place] [phone] HEEL STAINER 2, S Negative <1:240 Normal 07-31-2017 [facility] (77649) Comment: Result Comment: (NOTE)------ ADDITIONAL INFORMATION --This test was developed and its performance characteristicsdetermined by [facility] in a manner consistent with CLIArequirements. This test has not been cleared or approved bythe U.S. Food and Drug Administration. Performed By: #### CK, FT4, TSH, LD6, HBA1C, LACPYR, AAQTPL, GADCAB, CARNPL, PLTHY ####[facility] [address] [place], [place] [phone]#### CASRFX , LG1RFX, PARNEO #### [facility] [place], [place] [phone] HEEL STAINER Tr, S Negative <1:240 Normal 07-31-2017 [facility] (50605) Comment: Result Comment: (NOTE)------ ADDITIONAL INFORMATION --This test was developed and its performance characteristicsdetermined by [facility] in a manner consistent with CLIArequirements. This test has not been cleared or approved bythe U.S. Food and Drug Administration. Performed By: #### CK, FT4, TSH, LD6, HBA1C, LACPYR, AAQTPL, GADCAB, CARNPL, PLTHY ####[facility] [address] [place], [place] [phone]#### CASRFX , LG1RFX, PARNEO #### [facility] [place], [place] [phone] Striational Ab, S Negative <1:120 Normal 07-31-2017 [facility] (21922) Comment: Result Comment: (NOTE)------ ADDITIONAL INFORMATION --This test was developed and its performance characteristicsdetermined by [facility] in a manner consistent with CLIArequirements. This test has not been cleared or approved bythe U.S. Food and Drug Administration. Performed By: #### CK, FT4, TSH, LD6, HBA1C, LACPYR, AAQTPL, GADCAB, CARNPL, PLTHY ####[facility] [address] [place], [place] [phone]#### CASRFX , LG1RFX, PARNEO #### [facility] [place], [place] [phone] lgi1-igg reflex on 2017-07-31 LGI1-IGG CBA SERUM Negative Negative Normal 07-31-2017 [facility] (02725) Comment: Result Comment: (NOTE)------ ADDITIONAL INFORMATION --This test was developed and its performance characteristicsdetermined by [facility] in a manner consistent with CLIArequirements. This test has not been cleared or approved bythe U.S. Food and Drug Administration. Performed By: #### CK, FT4, TSH, LD6, HBA1C, LACPYR, AAQTPL, GADCAB, CARNPL, PLTHY ####[facility] [address] [place], [place] [phone]#### CASRFX , LG1RFX, PARNEO #### [facility] [place], [place] [phone] ld on 2017-07-31 LD 241 135-214 U/L High 07-31-2017 [facility] (83399) Comment: Performed By: #### CK, FT4, TSH, LD6, HBA1C, LACPYR, AAQTPL, GADCAB, CARNPL, PLTHY ####[facility] [place], [place] [phone]#### CASRFX , LG1RFX, PARNEO #### [facility] [place], [place] [phone] lactate/pyruvate on 2017-07-31 Lactate molar conc 2.1 0.5-2.2 mmol/L Normal 07-31-2017 [facility] (34854) Comment: Performed By: #### CK, FT4, TSH, LD6, HBA1C, LACPYR, AAQTPL, GADCAB, CARNPL, PLTHY ####[facility] [place], [place] [phone]#### CASRFX , LG1RFX, PARNEO #### [facility] [place], [place] [phone] Pyruvate 0.15 0.03-0.08 mmol/L High 07-31-2017 [facility] (85160) Comment: Result Comment: Specimen was not treated within the desired 30 minute time. Pyruvate result may be false ly decreased and lactate result may be falsely elevated. Performed By: #### CK, FT4, TSH, LD6, HBA1C, LACPYR, AAQTPL, GADCAB, CARNPL, PLTHY ####[facility] [place], [place] [phone]#### CASRFX , LG1RFX, PARNEO #### [facility] [place], [place] [phone] hemoglobin a1c on Glucose mass conc >240 mg/dL Normal 07-31-2017 [facility] (75582) Comment: Result Comment: eAG: (Estima patrick average glucose) is a calculated value from HgbA1c and is medical field representative of the average blood glucose level in the last 2-3 month period. Performed By: #### CK, FT4, TSH, LD6, HBA1C, LACPYR, AAQTPL, GADCAB, CARNPL, PLTHY ####[facility] [place], [place] [phone]#### CASRFX , LG1RFX, PARNEO #### [facility] [place], [place] [phone] Hemoglobin A1c/Hemoglobin.total 10.7 4.3-5.6 % High 07-31-2017 [facility] mass fraction (Bld) Spray (63571) Comment: Result Comment: [place] [employer] guidelines indicate that patients with HgbA1c in the range 5.7-6.4% are at increased risk for development of diabetes, and intervention by lifestyle modification may be beneficial. HgbA1c greater o r equal to 6.5% is considered diagnostic of diabetes. Performed By: #### CK, FT4, TSH, LD6, HBA1C, LACPYR, AAQTPL, GADCAB, CARNPL, PLTHY ####[facility] [place], [place] [phone]#### CASRFX , LG1RFX, PARNEO #### [facility] [place], [place] [phone] glutamic ac decar ab on 2017-07-31 Glutamic Ac Decar Ab <5.0 <5.0 Normal 7 [facility] (97439) Comment: Performed By: #### CK, FT4, TSH, LD6, HBA1C, LACPYR, AAQTPL, GADCAB, CARNPL, PLTHY ####[facility] [place], [place] [phone]#### CASRFX , LG1RFX, PARNEO #### [facility] [place], [place] [phone] free t4 on T4 free mass conc 1.2 0.9-1.7 ng/dL Normal 07-31-2017 [facility] (28388) Comment: Performed By: #### CK, FT4, TSH, LD6, HBA1C, LACPYR, AAQTPL, GADCAB, CARNPL, PLTHY ####[facility] [address] [place], [place] [phone]#### CASRFX , LG1RFX, PARNEO #### [facility] [phone] cnov on 2017-07-31 CNOV Office Visit Normal 07-31-2017 [place] and (GASTMN) --------[facility] ([id number] 1955 FDat e Time Provider Yghpraezar91/13/17 10:00 AM MUKUL STEVEN GASTMN During Clev and your visit today, we recorde d the following information about you: Temperature Pulse Blood pressure (63575) Weight 98.6 degrees 68/minut e 175/87 107 kg Height 1.676 mMsaul Steven DO 07/31/2017 10:10 AM SignedGASTROPARESIS CONSULTP [facility] You Parks for [...] mg 2x per day (taking for 2years); [place] 4x per day (20 years). Diet: eats [...] mg 2x per day(taking for 2 years); [place] 4x per day (20 years)Drug use- History or current drug use (Marijuana, Cocaine, Heroine , etc...) NoEating Disorders- Does the patient have a history of eating disorders NoPsychiatric Diso rders- Does the patient have a history of psychiatric disorders including PTSD: NoNutrition- Has the p atient met with a trust administrative assistant for diet recommendations withGastroparesis? No - Jejunostomy [...] Cramer Age [age] year old MRN [id number] ConsultTest Date Completed ResultsLabsEGD [facility] Findings:The examined [...] .?IMPRESSION:Markedly delayed solid gastric emptying.Gastric Emptying Study [facility] Findings:Initially static images were obtained after the [...] the end of 3 hours.XR Upper GI [facility] Impression:1. Findings described above con sistent with gastritis and duodenitis withmultiple small superficial ulcerations and mucosal fold thickening. No largeulcers or masses are identified.2. Multiple spontaneous episodes of GE r eflux to the level above the clavicles.There also are tertiary contractions consistent with presbyesophagus. Noevidence of esophageal ulceration or stricture is seen. Correlate clinically.3 . Chronic changes as described above.ConsultsGI [address] Harvey Belcher, [facility] SUBJECTIVE: Crystal chen s last seen [...] HISTORYProcedure Laterality Date- COLONOSCOP W/ OR W/O [facility] SPEC 06/19/2013 Colonoscopy- COLONOSCOPY W/BX 05/27/07- EGD [...] mg tabletMukul Steven DO2016Referring Provider: YOU PARKS [[id number]]Allergies As of Date: 07/31/2017 Noted Aller gy ReactionBACTRIM (SULFAMETHOXAZOLE- TRIMETH*07/31/2017 4 - HivesCIPROFLOXACIN 3 16 - UnknownFLEXERIL (CYCLOBENZAPRINE) 06/10/2013 16 - UnknownMETFORMIN 06/28/2017 14 - Other: See Azael gardiner Comments: MigrainesTORADOL (KETOROLAC) 03/22/2006band aids [Other] 05/27/2007Date Reviewed: Reviewed by: Mukul Steven - Fully AssessedReason for Visit: Consult [502] Cmt: Gastropar esisPrimary Visit Diagnosis:Gastroparesis [K31.84]Order(s):CK CREATINE KINASE [SQCK] Order #: [id number] FUTURE LD LACTATE DEHYDRO [SQLD6] Order #: [id number] FUTURE HGB A1C [KMFXY0S] Order #: [id number] FUTURE TSH BLD [SQTSH] Order #: [id number] FUTURE T4 FREE/FREE THYROX [SQFT4] Order #: [id number] FUTURE PYRUVATE+LACTATE BL [SQLACPYR] Order #: [id number] FUTURE AMINO ACID QUANT BLD [SQAAQTPL] Or batsheva #: [id number] FUTURE CARNITINE FREE/TOTAL, PLASMA [SQCARNPL] Order #: [id number] FUTURE PARANEOPLA ST AUTOABS [SQPARNEO] Order #: [id number] FUTURE GLUTAMIC AC DECARBOXYLASE AB [SQGADCAB] Order #: [id number] FUTURE PLASMA THYMIDINE DETERMINATION [SQPLTHY] Order #: [id number] FUTURE CAPSULE ENDOSCOPY SMA RT [6931414] Order #: [id number] FUTURE mirtazapine (REMERON) 15 mg tabletTake 1 [...] Status:Closed by MUKUL STEVEN DO on 10/01/16 [facility] Office Visit Normal 07-31-2017 Shauna colón (SVEN) --------CRYSTAL CRAMER [facility] ([id number]) 1955 [facility] e Time Provider Xxmxswmcbo96/13/17 9:00 AM RAYNE COOK During your visit today, we recorded the following information about you:Rayne Odom, PHD ([id number]) 07/31/2017 10:40 AM [facility] Crystal Mallory#: [id number]: 07/19 11/02Time: [address] hourRef[address] by: Dr. Cruz [...] benefitsof exercise.Rayne Odom, Ph.D.Referring Provider: MUKUL RUIZ [[id number]]Allergies As of Date: 07/31/2017 Noted Allergy ReactionBACTRIM [...] Skip nd (GASTMN) --------CRYSTAL CRAMER [facility] ([id number]) 1955 FDat e Time Provider Cddmaiqtqw75/13/17 10:30 AM NURSE PT ED KOBE GASTMN [...] In Department: GASTROENTEROLOGYReferring Pr ovider: HARVEY BELCHER [[id number]]Allergies As of Date: 07/31/2017 Noted Allergy ReactionBACTRI [...] act/vol 54 42-196 U/L Normal 07-31-2017 C [facility] (03574) Comment: Result Comment: Please note the updated, gender-specific reference range for this test (effective 016). Performed By: #### CK, FT4, TSH, LD6, HBA1C, LACPYR, AAQTPL, GADCAB, CARNPL, PLTHY ####[facility] L [address], [place] [phone]#### CASRFX , LG1RFX, PARNEO #### [facility] [address], [place] [phone] caspr2-igg reflex o n 2017-07-31 CASPR2-IGG CBA SERUM Negative Negative Normal 7 [facility] (45261) Comment: Result Comment: (NOTE)------ ADDITIONAL INFORMATION --This test was developed and its performance characteristicsdetermined by [facility] in a manner consistent with CLIArequirements. This test has not been cleared or approved bythe U.S. Food and Drug Administration. Performed By: #### CK, FT4, TSH, LD6, HBA1C, LACPYR, AAQTPL, GADCAB, CARNPL, PLTHY ####[facility] [address], [place] [phone]#### CASRFX , LG1RFX, PARNEO #### [facility] [address] [place], [place] [phone] carnitine fr/tot, pl on 2017-07-31 Carnitine Interp (NOTE) Normal 07-31-2017 [facility] [place] [facility] (47939) Comment: Result Comment: This assay o f [...] characteristics determinedby the Pathology and Laboratory Medicine [place] at the [facility]. The U.S. Food and Drug Administration has not approved orcleared this test , however, FDA clearance or approval is not currentlyrequired for clinic al use. Performed By: #### CK, FT4, TSH, LD6, HBA1C, LACPYR, AAQTPL, GADCAB, CARNPL, PLTHY ####[facility] [address]jeby[address] Ave[address], [place] [phone]#### CASRFX , LG1RFX, PARNEO #### [facility], [place] [phone] Carnitine Review Reviewed by Mayo Collier 07-19 [facility] MD Kayode, PhD Marcell jang ([id number]) (76199) Comment: Performed By: #### CK, FT4, TSH, LD6, HBA1C, LACPYR, AAQTPL, GADCAB, CARNPL, PLTHY ####[facility] [address] [place], [place] [phone]#### CASRFX , LG1RFX, PARNEO #### [facility], [place] [phone] Free L-Carnitine 29 22-52 umol/L Normal 07-31-2017 [facility] (98870) Comment: Performed By: #### CK, FT4, TSH, LD6, HBA1C, LACPYR, AAQTPL, GADCAB, CARNPL, PLTHY ####[facility], [address] [place], [place] [phone]#### CASRFX , LG1RFX, PARNEO #### [facility], [place] [phone] Free/Tot Carn Ratio 0.725 0.7-0.9 Normal 07-31-2017 [facility] (44393) Comment: Performed By: #### CK, FT4, TSH, LD6, HBA1C, LACPYR, AAQTPL, GADCAB, CARNPL, PLTHY ####[facility], [address] [place], [place] [phone]#### CASRFX , LG1RFX, PARNEO #### [facility], [place] [phone] Total L-Carnitine 40 27-66 umol/L Normal 07-31-2017 [facility] (42203) Comment: Performed By: #### CK, FT4, TSH, LD6, HBA1C, LACPYR, AAQTPL, GADCAB, CARNPL, PLTHY ####[facility] [address] [place], [place] [phone]#### CASRFX , LG1RFX, PARNEO #### [facility], [place] [phone] amino acids quant,pl on 2017-07-31 Alanine 389 177-583 um/L Normal 07-31-2017 [facility] (08591) Comment: Performed By: #### CK, FT4, TSH, LD6, HBA1C, LACPYR, AAQTPL, GADCAB, CARNPL, PLTHY ####[facility] [place], [place] [phone]#### CASRFX , LG1RFX, PARNEO #### [facility], [place] [phone] Alloisoleucine 0 0-2 um/L Normal 07-31-2017 [facility] (32545) Comment: Performed By: #### CK, FT4, TSH, LD6, HBA1C, LACPYR, AAQTPL, GADCAB, CARNPL, PLTHY ####[facility] [place], [place] [phone]#### CASRFX , LG1RFX, PARNEO #### [facility] [place], [place] [phone] Alpha-aminoadipic Ac 0 0-6 um/L Normal 7 [facility] (48756) Comment: Performed By: #### CK, FT4, TSH, LD6, HBA1C, LACPYR, AAQTPL, GADCAB, CARNPL, PLTHY ####[facility] [address] [place], [place] [phone]#### CASRFX , LG1RFX, PARNEO #### [facility], [place] [phone] Review Reviewed by Argentina Normal 07-31-2017 [facility] Jodee, Ph.D. Suman case (23927) Comment: Performed By: #### CK, FT4, TSH, LD6, HBA1C, LACPYR, AAQTPL, GADCAB, CARNPL, PLTHY ####[facility] [address]yl[address] [place], [place] [phone]#### CASRFX , LG1RFX, PARNEO #### [facility] [place], [place] [phone] Arginine 19 15-128 um/L Normal 07-31-2017 [facility] (61382) Comment: Performed By: #### CK, FT4, TSH, LD6, HBA1C, LACPYR, AAQTPL, GADCAB, CARNPL, PLTHY ####[facility] [address] [place], [place] [phone]#### CASRFX , LG1RFX, PARNEO #### [facility], [place] [phone] Asparagine 30 35-74 um/L Low 07-31-2017 [facility] (65830) Comment: Performed By: #### CK, FT4, TSH, LD6, HBA1C, LACPYR, AAQTPL, GADCAB, CARNPL, PLTHY ####[facility] [address] [place], [place] [phone]#### CASRFX , LG1RFX, PARNEO #### [facility], [place] [phone] Aspartic Acid 6 1-25 um/L Normal 07-31-2017 [facility] (56206) Comment: Performed By: #### CK, FT4, TSH, LD6, HBA1C, LACPYR, AAQTPL, GADCAB, CARNPL, PLTHY ####[facility] [address] [place], [place] [phone]#### CASRFX , LG1RFX, PARNEO #### [facility], [place] [phone] Citrulline 24 12-55 um/L Normal 07-31-2017 [facility] (52323) Comment: Performed By: #### CK, FT4, TSH, LD6, HBA1C, LACPYR, AAQTPL, GADCAB, CARNPL, PLTHY ####[facility] [address] [place], [place] [phone]#### CASRFX , LG1RFX, PARNEO #### [facility], [place] [phone] Cystine 42 5-82 um/L Normal 07-31-2017 [facility] (03524) Comment: Performed By: #### CK, FT4, TSH, LD6, HBA1C, LACPYR, AAQTPL, GADCAB, CARNPL, PLTHY ####[facility] [address] [place], [place] [phone]#### CASRFX , LG1RFX, PARNEO #### [facility] [place], [place] [phone] Glutamic Acid 130 10-131 um/L Normal 07-31-2017 [facility] (52410) Comment: Performed By: #### CK, FT4, TSH, LD6, HBA1C, LACPYR, AAQTPL, GADCAB, CARNPL, PLTHY ####[facility] [address]rxgsfp[address] AveCwayne healthcare main campusandMozelle, [place] [phone]#### CASRFX , LG1RFX, PARNEO #### [facility] [place] [phone] Glutamine 391 205-756 um/L Normal 07-31-2017 [facility] (87781) Comment: Performed By: #### CK, FT4, TSH, LD6, HBA1C, LACPYR, AAQTPL, GADCAB, CARNPL, PLTHY ####[facility] [address], [place] [phone]#### CASRFX , LG1RFX, PARNEO #### [facility], [place] [phone] Glycine 139 151-490 um/L Low 07-31-2017 [facility] (20617) Comment: Performed By: #### CK, FT4, TSH, LD6, HBA1C, LACPYR, AAQTPL, GADCAB, CARNPL, PLTHY ####[facility] [address], [place] [phone]#### CASRFX , LG1RFX, PARNEO #### [facility], [place] [phone] Histidine 55 72-124 um/L Low 07-31-2017 [facility] (13775) Comment: Performed By: #### CK, FT4, TSH, LD6, HBA1C, LACPYR, AAQTPL, GADCAB, CARNPL, PLTHY ####[facility] [address], [place] [phone]#### CASRFX , LG1RFX, PARNEO #### [facility], [place] [phone] Hydroxylysine 1 0 um/L High 07-31-2017 [facility] (76924) Comment: Performed By: #### CK, FT4, TSH, LD6, HBA1C, LACPYR, AAQTPL, GADCAB, CARNPL, PLTHY ####[facility] [place], [place] [phone]#### CASRFX , LG1RFX, PARNEO #### [facility], [place] [phone] Hydroxyproline 10 0-53 um/L Normal 07-31-2017 [facility] (81174) Comment: Performed By: #### CK, FT4, TSH, LD6, HBA1C, LACPYR, AAQTPL, GADCAB, CARNPL, PLTHY ####[facility], [address] [place], [place] [phone]#### CASRFX , LG1RFX, PARNEO #### [facility], [place] [phone] Interpretation (NOTE) Normal 07-31-2017 [facility] (24951) Comment: Result Comment: THIS PLASMA AMINO ACID ANALYSIS SHOWS LOW LEVELS OF SEVERAL AMINOACIDS SUGGESTING REDUCE D DIETARY AMINO ACID INTAKE. Date of Analysis:08/02/17 Date of Re view: 08/02/17 Reference intervals from Veronica Thrasher, Christina MG, Floyd GEORGE, marsha CROCKER: Biochemical Genetics: A Laboratory Manual, Copyright 1989 by [facility] [employer] Reference intervals not established for some ami no acids. This test was developed and its performance characteristics determined by [facility]'s Jenny العلي [facility] Pathology and [facility] ([facility]). It has not been cleared or approved by the FDA. -[facility] is regulated under CLIA as qualified to perform high-co mplexity testing. This test is used for clinical purposes. It should not be r egarded as investigational or for research. Performed By: #### CK, FT4, TSH, LD6, HBA1C, LACPYR, AAQTPL, GADCAB, CARNPL, PLTHY ####[facility] [address], [place] [phone]#### CASRFX , LG1RFX, PARNEO #### [facility], [place] [phone] Isoleucine 51 30-108 um/L Normal 07-31-2017 [facility] (98999) Comment: Performed By: #### CK, FT4, TSH, LD6, HBA1C, LACPYR, AAQTPL, GADCAB, CARNPL, PLTHY ####[facility] [address], [place] [phone]#### CASRFX , LG1RFX, PARNEO #### [facility], [place] [phone] Leucine 83 72-201 um/L Normal 07-31-2017 [facility] (27163) Comment: Performed By: #### CK, FT4, TSH, LD6, HBA1C, LACPYR, AAQTPL, GADCAB, CARNPL, PLTHY ####[facility] [address] [place], [place] [phone]#### CASRFX , LG1RFX, PARNEO #### [facility], [place] [phone] Lysine 116 116-296 um/L Normal 07-31-2017 [facility] (57560) Comment: Performed By: #### CK, FT4, TSH, LD6, HBA1C, LACPYR, AAQTPL, GADCAB, CARNPL, PLTHY ####[facility] [address], [place] [phone]#### CASRFX , LG1RFX, PARNEO #### [facility], [place] [phone] Methionine 13 10-42 um/L Normal 07-31-2017 [facility] (78453) Comment: Performed By: #### CK, FT4, TSH, LD6, HBA1C, LACPYR, AAQTPL, GADCAB, CARNPL, PLTHY ####[facility] [address], [place] [phone]#### CASRFX , LG1RFX, PARNEO #### [facility], [place] [phone] Ornithine 73 48-195 um/L Normal 07-31-2017 [facility] (54390) Comment: Performed By: #### CK, FT4, TSH, LD6, HBA1C, LACPYR, AAQTPL, GADCAB, CARNPL, PLTHY ####[facility] [address] [place], [place] [phone]#### CASRFX , LG1RFX, PARNEO #### [facility], [place] [phone] Phenylalanine 49 35-85 um/L Normal 07-31-2017 [facility] (31139) Comment: Performed By: #### CK, FT4, TSH, LD6, HBA1C, LACPYR, AAQTPL, GADCAB, CARNPL, PLTHY ####[facility] [address], [place] [phone]#### CASRFX , LG1RFX, PARNEO #### [facility], [place] [phone] Proline 229 97-329 um/L Normal 07-31-2017 [facility] (14399) Comment: Performed By: #### CK, FT4, TSH, LD6, HBA1C, LACPYR, AAQTPL, GADCAB, CARNPL, PLTHY ####[facility] [address] [place], [place] [phone]#### CASRFX , LG1RFX, PARNEO #### [facility] [facility] [place]man[place], [place] [phone] Sarcosine 0 0 um/L Normal 07-31-2017 [facility] (21082) Comment: Performed By: #### CK, FT4, TSH, LD6, HBA1C, LACPYR, AAQTPL, GADCAB, CARNPL, PLTHY ####[facility] [address], [place] [phone]#### CASRFX , LG1RFX, PARNEO #### [facility], [place] [phone] Serine 59 58-181 um/L Normal 07-31-2017 [facility] (45873) Comment: Performed By: #### CK, FT4, TSH, LD6, HBA1C, LACPYR, AAQTPL, GADCAB, CARNPL, PLTHY ####[facility] [address] [place], [place] [phone]#### CASRFX , LG1RFX, PARNEO #### [facility] [place], [place] [phone] Taurine 61 54-210 um/L Normal 07-31-2017 [facility] (54152) Comment: Performed By: #### CK, FT4, TSH, LD6, HBA1C, LACPYR, AAQTPL, GADCAB, CARNPL, PLTHY ####[facility] [address]su[address] [place], [place] [phone]#### CASRFX , LG1RFX, PARNEO #### [facility], [place] [phone] Threonine 59 60-225 um/L Low 07-31-2017 [facility] (22730) Comment: Performed By: #### CK, FT4, TSH, LD6, HBA1C, LACPYR, AAQTPL, GADCAB, CARNPL, PLTHY ####[facility] [place], [place] [phone]#### CASRFX , LG1RFX, PARNEO #### [facility] [place], [place] [phone] Tyrosine 51 34-112 um/L Normal 07-31-2017 [facility] (81632) Comment: Performed By: #### CK, FT4, TSH, LD6, HBA1C, LACPYR, AAQTPL, GADCAB, CARNPL, PLTHY ####[facility] [place], [place] [phone]#### CASRFX , LG1RFX, PARNEO #### [facility] [place], [place] [phone] Valine 175 119-336 um/L Normal 07-31-2017 [facility] (14912) Comment: Performed By: #### CK, FT4, TSH, LD6, HBA1C, LACPYR, AAQTPL, GADCAB, CARNPL, PLTHY ####[facility], [address] [place], [place] [phone]#### CASRFX , LG1RFX, PARNEO #### [facility] [place], [place] [phone] nm gastric emptying solid on 2017-07-19 [place] GASTRIC Performed at [facility] APPROVED BY: [facility] Rodolfo Azar MD ([id number]) EXAMINATION: NM GASTRIC EMPTYING STUDY EXAM DATE: [...] 07-19-2017 - Ambulatory Nausea with HARVEY FAJARDO [facility] 07-20-2017 vomiting, [facility] unspecified ([id number]) 07-08-2017 Ambulatory [place] Facility:[facility] 03-29-2020 - Patient encounter External [facility] 03-29-2020 procedure Provider 08-31-2018 Patient encounter [facility] - Facility:[facility] procedure [facility] 07-23-2018 - Patient encounter AYANA LOPEZ) [facility] 07-23-[address] [facility] (0000 0) 05-23-2018 - Patient encounter [facility] 05-26-2018 procedure Spray (0000 0) 12-31-2017 - Patient encounter MUKUL Luis JARETT Villatoroa [facility] 12-31-2017 procedure Spray (0000 0) 12-31-2017 - Patient encounter MUKUL Luis STEVEN Juwanvela [facility] 12-31-2017 procedure Spray (0000 0) 12-31-2017 - Patient encounter MUKUL Villatoroa [facility] 01-01-2018 procedure Spray (0000 0) 12-18-2017 - Patient encounter MUKUL Luis Echeverrianemoa [facility] 12-18-2017 procedure YOU JOHNSON Spray (0000 0) DARYL 10-22-2017 - Patient encounter MUKUL Echeverrianemoa [facility] 10-22-2017 procedure MUKUL Luis STEVEN Spray (0 0000) 10-11-2017 - Patient encounter MUKUL Villatoroa [facility] 10-11-2017 procedure Spray (0000 0) 07-31-2017 - Patient encounter M[facility]UL [facility]CILLAPrice [facility] 08-08-2017 procedure HARVEYRADHA FAJARDO Spray (0000 0) BUCKY GUILLORY MUKUL Banuelos JARETT 03-29-2020 Results Only External External-NonCCF Provider Procedures Procedure Name Date Provider Location EXTERNAL IMAGING 03-29-2020 External Provider Spr[facility] ([id number]) Mammography 12-31-2017 [facility] (00796) Plan of Treatment Plan Description Date Location INFLUENZA (#1) INFLUENZA (#1) 2020 [facility] (21075) ADVANCE DIRECTIVE ADVANCE DIRECTIVE 2019 [facility] inic DISCUSSION DISCUSSION (82012) BONE DENSITY BONE DENSITY 2019 [facility] (53449) PNEUMOVAX AGE 65 AND OVER PNEUMOVAX AGE 65 AND OVER 2019 [facility] WITH 5YR LOOKBACK (#1) WITH 5YR LOOKBACK (#1) (8 5995) MAMMOGRAM MAMMOGRAM 12-31-2018 [facility] (60181) COLORECTAL CANCER COLORECTAL CANCER 06-19-2018 [facility] inic SCREENING,SEE MODIFIER SCREENING,SEE MODIFIER (1 [phone]) HBA1C HBA1C 10-29-2017 [facility] (13521) LDL CHOLESTEROL LDL CHOLESTEROL 11-12-2015 [facility] (60358) SHINGRIX VACCINE (1 of 2) SHINGRIX VACCINE (1 of 2) 2004 [facility] (98356) DTAP,TDAP,TD (1 - Tdap) DTAP,TDAP,TD (1 - Tdap) 1973 [facility] (05114) ANNUAL PCP TEAM CHRONIC ANNUAL PCP TEAM CHRONIC 1972 [facility] DISEASE VISIT DISEASE VISIT (93366) HEPATITIS C SCREENING HEPATITIS C SCREENING 1972 [facility] (69693) HIV SCREENING HIV SCREENING 1972 [facility] (46916) DIABETIC FOOT EXAM DIABETIC FOOT EXAM 1964 [facility] (27321) URINE ALBUMIN:CREATININE URINE ALBUMIN:CREATININE 1964 [facility] RATIO RATIO (32572) DILATED RETINAL EXAM DILATED RETINAL EXAM 1964 [facility] (22177) Payers Payer Name Policy Number Location [employer] BL[employer] [id number] [facility] (76370) DARIAN LAMAR [facility] [id number] [facility] (48436) The following information is from the original human readable contentNo Payer Records FoundNo Payer Records FoundNo Payer Records FoundNo Payer Records FoundNo Payer Records FoundNo Payer Records FoundNo Payer Records Found Social History Type Social History Description Date Locat ion Tobacco smoking status Never smoker 07-23-2018 [facility] (07378) NHIS Tobacco use and exposure Never used 07-23-2018 [facility] (48494) Alcohol intake Current non-drinker of 07-23-2018 [facility] (62074) alcohol (finding) Sex Assigned At Not on file [facility] (00200) The following information is from the original [...] BE BASED ON THE PRIMARY CLINICAL RECORDS. [facility] provides no warranty or guarantee of the accuracy or completeness of information in this document. UNRECOGNIZED CONTENT PROVIDED BELOW FOR UNRECOGNIZED SECTION INFORMATION SOURCE DATE CREATED AUTHOR AUTHOR'S ORGANIZATIO N 02/11/2018 [facility] DATE CREATED AUTHOR AUTHOR'S ORGANIZATIO N 02/11/2018 [facility] DATE CREATED AUTHOR AUTHOR'S ORGANIZATIO N 07/29/2018 [facility] DATE CREATED AUTHOR AUTHOR'S ORGANIZATIO N 09/03/2018 [facility] DATE CREATED AUTHOR AUTHOR'S ORGANAAMIRATIO N 05/20/2020 [facility] Found ation ([place]) UNRECOGNIZED CONTENT PROVIDED BELOW FOR UNRECOGNIZED SECTION Source Comments In the event this information is protected by the Federal Confidentiality of Alcohol and Drug Abuse Patient Records regulations: The Federal rules restrict any use of the information to criminally investigate or prosecute any alcohol or drug abuse patient.[facility]
== END 2020-01-11 17:15 | disposition home or self-care (01) ==
LOC: ED 16:15
PROVIDERS: Emergency Provider Emergency Medicine; PCP Family Medicine
DX: I11.0 Hypertensive heart disease with heart failure (principal); I50.9 Heart failure, unspecified; I25.10 Atherosclerotic heart disease of native coronary artery without angina pectoris; E11.9 Type 2 diabetes mellitus without complications; E78.00 Pure hypercholesterolemia, unspecified; K21.9 Gastro-esophageal reflux disease without esophagitis; M06.9 Rheumatoid arthritis, unspecified; Z79.4 Long term (current) use of insulin; Z79.82 Long term (current) use of aspirin; Z79.899 Other long term (current) drug therapy
CPT/HCPCS: 71045; 80048; 83880; 84484; 85025; 93005; 94640; 99284

== ENCOUNTER → 2020-01-21 10:15 | Outpatient (CLI) | payer MEDICARE, SELFPAY ==
[2020-01-11 13:41] VITALS: BMI 46.0
[2020-01-21 10:49] LABS: Hemoglobin 12.1 g/dL (12.0-15.0); Mean Corpuscular Hgb 27.6 pg (27.0-32.0); Platelet Count 242 K/mm3 (150-450); RBC Distribution Width CV 14.1 % (11.6-14.6); RBC Distribution Width SD 45.3 fl (35.1-43.9); Red Blood Count 4.38 M/mm3 (4.2-5.4)
[2020-01-21 11:08] LABS: BUN 16 mg/dL (7-18); BUN/Creat Ratio 13.1 RATIO (10-20); Calcium,Total 8.7 mg/dL (8.5-10.1); Chloride 102 mmol/L (98-107); Creatinine, Serum 1.22 mg/dL (0.55-1.02); EST Glomerular Filtration Rate 47 mL/min (>60); Est Glom Filt Rate - Afr Amer 57 mL/min (>60); Glucose 372 mg/dL (74-106); Phosphorus 3.3 mg/dL (2.5-4.9); Potassium 4.1 mmol/L (3.5-5.1); Sodium Level 137 mmol/L (136-145)
[2020-01-21 11:14] LABS: PTHIN 167.9 pg/mL (18.4-80.1)
--- OUTSIDE RECORDS SUMMARY | 2020-06-05 07:42 | XMS RPT_ITS | CCD ---
:1955 External Reference #:[id number] Author Organization [facility] Care Team Providers Name Role Phone NELSON [...] S Unavailable Unavailable SHAHEEN (RN) Unavailable Unavailable [facility] Clinical [facility] Attending Unavailable Rui Parks Primary Care Provider Allergies Reported Allergen Reaction(s) Severity Date of Location Onset ciprofloxacin Rash Unknown, 06-10-2013 - [place] [facility] Translations: [ Moderate Other [place] CIPROFLOXACIN, Repository CIPROFLOXACIN, CIPROFLOXACIN] cyclobenzaprine Rash Unknown, 06-10-2013 - [place] [facility] Translations: [ Moderate Other [place] CYCLOBENZAPRINE, Repository CYCLOBENZAPRINE, CYCLOBENZAPRINE] ketorolac Translations: Other: See Unknown, High 03-22-2006 - [facility] [ KETOROLAC, KETOROLAC, Comments Ot r [place] KETOROLAC] Repository metFORMIN Translations: Other: See 06-28-2017 - [facility] [ METFORMIN, METFORMIN, Comments Ot r [place] METFORMIN] Repository Sulfamethoxazole / Hives Unknown, High 07-31-2017 - [facility] Trimethoprim Main [place] Translations: [ Repository SULFAMETHOXAZOLE-TRIMET HOPRIM] OTHER Translations: [ 05-27-2007 - [facility] OTHER, OTHER, OTHER] Other C [facility] Repository Medications Medication Name Sig Date Prescriber Location Allopurinol allopurinol (ZYLOPRIM) [facility] Provider [facility] 100 mg tablet Take 100 Provider (4419 5) mg by mouth once daily. 0 Active Comment: Take 100 mg by mouth once da jeffy. Aspirin aspirin, enteric coated C[facility] Provider [facility] (25213) (ASPIRIN, ENTERIC COATED) Provider 81 mg EC tablet Take 81 mg by mouth once daily. 0 Active Comment: Take 81 mg by mouth once [place]. Haloperidol haloperidol (HALDOL) 0.5 [facility] Provider [facility] mg tablet Take 0.5 mg by Provider (12 195) mouth twice daily. 0 Active Comment: Take 0.5 mg by mouth twice d aily. HYDROCODONE HYDROCODONE [facility] Provider [facility] linic BIT/ACETAMINOPHEN BIT/ACETAMINOPHEN Provider (4019 5) (VICODIN ORAL) (VICODIN ORAL) Take by mouth. 0 Active Comment: Take by mouth. insulin degludec INSULIN DEGLUDEC (TRESIBA Ccf Provide r [facility] FLEXTOUCH U-100 Provider (16072) SUBCUTANEOUS) Inject 120 mg subcutaneously once daily. 0 Active Comment: Inject 120 mg subcutaneously once daily. lamoTRIgine lamoTRIgine (LAMICTAL) 100 [facility] Provider C [facility] mg tablet Take 100 mg by Provider (74 907) mouth twice daily. 0 Active Comment: Take 100 mg by mouth twice d aily. levothyroxine Levothyroxine 50 mcg cap [facility] Provider [facility] Take by mouth once daily. Provider (4 8215) 0 Active Comment: Take by mouth once daily. Methadone methadone (DOLOPHINE) 5 mg [facility] Provider C [facility] (60072) tablet Take 10 mg by mouth Provider once daily. At bedtime 0 Active Comment: Take 10 mg by mouth once [place]. At bedtime montelukast montelukast (SINGULAIR) 10 [facility] Provider [facility] mg tablet Take 10 mg by Provider (056 95) mouth daily at bedtime. 0 Active Comment: Take 10 mg by mouth daily at bedtime. Morphine morphine IR 15 mg tablet [facility] Provider [facility] (48006) Take 15 mg by mouth every Provider 4 hours as needed. 0 Active Comment: Take 15 mg by mouth every 4 hours as needed. naloxegol naloxegol (MOVANTIK) 25 mg [facility] Provider [facility] (49936) tablet Take 25 mg by mouth Provider once daily. 0 Active Comment: Take 25 mg by mouth once [place]. Omeprazole Omeprazole 40 mg capsule [facility] Provider [facility] (64362) Take 40 mg by mouth once Provider daily. 0 Active Comment: Take 40 mg by mouth once [place]. Ondansetron ondansetron orally 03-03-2018 [facility] disintegrating (ZOFRAN [facility] (4 6664) ODT) 8 mg disintegrating tablet Take 1 tablet by mouth every 8 hours as needed. 90 tablet 6 03/03/2018 Active Comment: Take 1 tablet by mouth every 8 hours as needed. pregabalin pregabalin (LYRICA) 75 mg [facility] Provider [facility] (25886) capsule Take 150 mg by Provider mouth twice daily. 0 Active Comment: Take 150 mg by mouth twice d aily. Promethazine promethazine (PHENERGAN) 12-18-[address] [facility] 25 mg tablet Take 1 (16468) tablet by mouth every 8 hours as needed (for nausea). 90 tablet 6 12/18/2017 Active promethazine (PHENERGAN) 25 mg tablet Take 25 C[facility] (27190) mg by mouth three times daily. 0 Active Comment: Take 25 mg by mouth three ti mes daily. Take 1 tablet by mouth every 8 hours as needed (for nausea). rOPINIRole rOPINIRole 1 mg tablet [facility] Provider [facility] (22455) Take 1 mg by mouth once Provider daily. 0 Active Comment: Take 1 mg by mouth once alicia y. Sertraline sertraline (ZOLOFT) 100 [facility] Provider [facility] (51541) mg tablet Take 100 mg by Provider mouth once daily. 0 Active Comment: Take 100 mg by mouth once da jeffy. Simvastatin simvastatin 40 mg tablet [facility] Provider [facility] Take 40 mg by mouth daily Provider (4 4551) at bedtime. 0 Active Comment: Take 40 mg by mouth daily at bedtime. valsartan valsartan (DIOVAN) 80 mg [facility] Provider [facility] (29719) tablet Take 80 mg by Provider mouth once daily. 0 Active Comment: Take 80 mg by mouth once scotty ly. Problems Active Problems Category Problem Name Status Date Location Unclassified Active 08-31-2018 - [facility] [place] ([address]) Unclassified Unknown / UNK(Unknown) Active 07-19-2017 - [facility] (09103) Past or Other Problems Category Problem Name Status Date Location Nausea and vomiting Nausea with vomiting, Completed 02-17-2015 - [facility] (67639) Other disorders of Gastroparesis [facility] stomach and duodenum [facility] (46060) Other gastrointestinal Diarrhea Completed 05-27-2007 - [facility] disorders ([address]231) Other nervous system Other disorders of Completed 12-31-2017 - [facility] disorders nervous system [place] (00 000) Tuberculosis Nodular tuberculosis Completed 04-08-2007 [facility] ([address]) Results Result Name Value Range Unit Interpretation Flag Date Location cmp on 2020-05-19 Albumin [Mass/Vol] 3.3 3.4-4.8 G/dL Low 05-19-2020 [facility] ([place] ([address]30) Comment: Performed By: #### GFR, BMP, PBNP, TROP #### [address] [address] #### ANEU, ADIFF, CBC #### [address] [address] Albumin/Globulin [Mass ratio] 0.8 1.1-2.5 ratio Low 05-19-2020 [facility] ([place] (48105) Comment: Performed By: #### GFR, BMP, PBNP, TROP #### [address] [address] #### ANEU, ADIFF, CBC #### [address] [address] ALP [Catalytic activity/Vol] 194 40-135 U/L High 1 [facility] ([place] (0000 0) Comment: Performed By: #### GFR, BMP, PBNP, TROP #### [address] [address] #### ANEU, ADIFF, CBC #### [address] [address] ALT [Catalytic activity/Vol] 27 14-59 U/L Normal 1 [facility] ([place] (0000 0) Comment: Performed By: #### GFR, BMP, PBNP, TROP #### [place] [address] #### ANEU, ADIFF, CBC #### [address] [address] AST [Catalytic activity/Vol] 18 10-40 U/L Normal 1 [facility] ([place] (0000 0) Comment: Performed By: #### GFR, BMP, PBNP, TROP #### [place] [address] #### ANEU, ADIFF, CBC #### [address] [address] Bili Total 0.7 0.2-1.0 mg/dL Normal 05-19-2020 [facility] ([place] ([address]52) Comment: Result Comment: Use of this assay is not recommended for patients undergoing treatment with eltrombopag d ue to the potential for falsely elevated results. Performed By: #### GFR, BMP, PBNP, TROP #### [place] [address] #### ANEU, ADIFF, CBC #### [address] [address] Calcium [Mass/Vol] 9.5 8.4-10.2 mg/dL Normal 05-19-2020 [facility] ([place] (0000 0) Comment: Performed By: #### GFR, BMP, PBNP, TROP #### [place] [address] #### ANEU, ADIFF, CBC #### [address] [address] Chloride [Moles/Vol] 99 98-107 mmol/L Normal 0 [facility] ([place] (0000 0) Comment: Performed By: #### GFR, BMP, PBNP, TROP #### [address] [address] #### ANEU, ADIFF, CBC #### [address] [address] CO2 [Moles/Vol] 27 23-31 mmol/L Normal 05-19-2020 [facility] ([place]) ([address]) Comment: Performed By: #### GFR, BMP, PBNP, TROP #### [place] [address] #### ANEU, ADIFF, CBC #### [address] [address] Creatinine [Mass/Vol] 1.21 0.55-1.02 mg/dL High 05-19-20 [facility] ([place] (0000 0) Comment: Performed By: #### GFR, BMP, PBNP, TROP #### [place] [address] #### ANEU, ADIFF, CBC #### [address] [address] Electrolyte Balance 9.0 mEq/L Normal 05-19-2020 [facility] ([place] ([address]11) Comment: Performed By: #### GFR, BMP, PBNP, TROP #### [place] [address] #### ANEU, ADIFF, CBC #### [address] [address] Globulin (S) [Mass/Vol] 3.9 G/dL Normal 2019 [facility] ([place] ([address]) Comment: Performed By: #### GFR, BMP, PBNP, TROP #### [place] [address] #### ANEU, ADIFF, CBC #### [address] [address] Glucose [Mass/Vol] 311 80-115 mg/dL High 05-19-2020 [facility] ([place] ([address]90) Comment: Performed By: #### GFR, BMP, PBNP, TROP #### [place] [address] #### ANEU, ADIFF, CBC #### [address] [address] Potassium [Moles/Vol] 4.8 3.5-5.1 mmol/L Normal 05-19-20 [facility] ([place] (0000 0) Comment: Performed By: #### GFR, BMP, PBNP, TROP #### [place] [address] #### ANEU, ADIFF, CBC #### [address] [address] Protein [Mass/Vol] 7.2 6.4-8.2 G/dL Normal 05-19-2020 [facility] ([place] (65478) Comment: Performed By: #### GFR, BMP, PBNP, TROP #### [place] [address] #### ANEU, ADIFF, CBC #### [address] [address] Sodium [Moles/Vol] 135 136-145 mmol/L Low 05-19-2020 [facility] ([place] (86006) Comment: Performed By: #### GFR, BMP, PBNP, TROP #### [place] [address] #### ANEU, ADIFF, CBC #### [address] [address] Urea nitrogen [Mass/Vol] 18 7-18 mg/dL Normal 05-19 [facility] ([place] (0000 0) Comment: Performed By: #### GFR, BMP, PBNP, TROP #### [place] [address] #### ANEU, ADIFF, CBC #### [address] [address] Urea nitrogen/Creatinine [Mass 15 7-27 ratio Normal 05-19-2020 [facility]] [facility] ([place] ([address]) Comment: Performed By: #### GFR, BMP, PBNP, TROP #### [address] [address] #### ANEU, ADIFF, CBC #### [address] [address] a1c on 2020-05-19 HbA1c (Bld) [Mass fraction] 9.2 4.3-6.4 % High [facility] ([place] (0000 0) Comment: Performed By: #### GFR, BMP, PBNP, TROP #### [place] [address] #### ANEU, ADIFF, CBC #### [address] [address] .gfr on 2020-05-19 GFR 54 ml/min/1.73sqm Normal [facility] ([place] (0000 0) Comment: Result Comment: GFR Population mean for Afri can Marshallese, Non- Americans Ages 20-29 = 116 mL/min/1.73 [...] By: #### GFR, BMP, PBNP, TROP #### [address] [address] #### ANEU, ADIFF, CBC #### [address] [address] GFR Non- 45 ml/min/1.73sqm Normal 05-19-2020 [facility] ([place] ([address]37) Comment: Result Comment: GFR Population mean for Afri can Marshallese, Non- Americans Ages 20-29 = 116 mL/min/1.73 [...] By: #### GFR, BMP, PBNP, TROP #### [place] [address] #### ANEU, ADIFF, CBC #### [address] [address] bmp on 2020-03-21 Calcium [Mass/Vol] 9.6 8.4-10.2 mg/dL Normal 03-21-2020 [facility] ([place] (0000 0) Comment: Performed By: #### GFR, BMP, PBNP, TROP #### [place] [address] #### ANEU, ADIFF, CBC #### [address] [address] Chloride [Moles/Vol] 96 98-107 mmol/L Low 0 [facility] ([place] ([address]502) Comment: Performed By: #### GFR, BMP, PBNP, TROP #### [place] [address] #### ANEU, ADIFF, CBC #### [address] [address] CO2 [Moles/Vol] 27 23-31 mmol/L Normal 03-21-2020 [facility] ([place] ([address]) Comment: Performed By: #### GFR, BMP, PBNP, TROP #### [place] [address] #### ANEU, ADIFF, CBC #### [address] [address] Creatinine [Mass/Vol] 1.42 0.55-1.02 mg/dL High 03-21-20 20 [facility] ([place] (0000 0) Comment: Performed By: #### GFR, BMP, PBNP, TROP #### [place] [address] #### ANEU, ADIFF, CBC #### [address] [address] Electrolyte Balance 11.0 mEq/L Normal 03-21-2020 [facility] ([place] (27542) Comment: Performed By: #### GFR, BMP, PBNP, TROP #### [place] [address] #### ANEU, ADIFF, CBC #### [address] [address] Glucose [Mass/Vol] 397 80-115 mg/dL High 03-21-2020 [facility] ([place]) ([address]45) Comment: Performed By: #### GFR, BMP, PBNP, TROP #### [place] [address] #### ANEU, ADIFF, CBC #### [address] [address] Potassium [Moles/Vol] 4.8 3.5-5.1 mmol/L Normal 03-21-20 20 [facility] ([place] (0000 0) Comment: Performed By: #### GFR, BMP, PBNP, TROP #### [place] [address] #### ANEU, ADIFF, CBC #### [address] [address] Sodium [Moles/Vol] 134 136-145 mmol/L Low 03-21-2020 [facility] ([place] (98242) Comment: Performed By: #### GFR, BMP, PBNP, TROP #### [place] [address] #### ANEU, ADIFF, CBC #### [address] [address] Urea nitrogen [Mass/Vol] 18 7-18 mg/dL Normal 03-21 [facility] ([place] (0000 0) Comment: Performed By: #### GFR, BMP, PBNP, TROP #### [address] [address] #### ANEU, ADIFF, CBC #### [address] [address] Urea nitrogen/Creatinine [Mass 13 7-27 ratio Normal 03-21-2020 [facility]] [facility] ([place] ([address]) Comment: Performed By: #### GFR, BMP, PBNP, TROP #### [address] [address] #### ANEU, ADIFF, CBC #### [address] [address] .gfr on 2020-03-21 GFR 45 ml/min/1.73sqm Normal 08 [facility] ([place] (0000 0) Comment: Result Comment: GFR Population mean for Afri can Marshallese, Non- Americans Ages 20-29 = 116 mL/min/1.73 [...] By: #### GFR, BMP, PBNP, TROP #### [address] [address] #### ANEU, ADIFF, CBC #### [address] [address] GFR Non- 37 ml/min/1.73sqm Normal 03-21-2020 [facility] ([place] (46295) Comment: Result Comment: GFR Population mean for Afri can Marshallese, Non- Americans Ages 20-29 = 116 mL/min/1.73 [...] By: #### GFR, BMP, PBNP, TROP #### [facility] [address] [place] [address] #### ANEU, ADIFF, CBC #### [place] [address] [place], [place] [address] nm bone imaging whole body on 2020-03-01 NM BONE IMAGING ORIGINAL Normal 03-01-2020 [facility] WHOLE BODY EXAM: NM BONE IMAGING WHOLE BODY 02/29/2020 1:37 PM [facility] ([place] ([id number]) HISTORY: LEFT posterior late ral ribs/chest wall [...] on 2020-02-26 AISLINN . Normal 02-26-2020 [facility] MICRO - Microbiology [facility] ([place] ([id number]) PROCEDURE: Urine Culture [*1] SOURCE: Urine, Clean Catch BODY SITE: COLLECTED DATE/TIME: 02/24/2020 22:39 EDT RECEIVED DATE/TIME: 02/25/2020 15:49 EDT START DATE/TIME: 02/25/2020 15:49 EDT FREE TEXT SOURCE: FINAL REPORTS Final Report [] Verified Date/Time/Personnel: 02/26/2020 14:46 EDT 10,000 - 50,000 cfu/ml Multiple bacterial morphotypes present. Probable Contamination. Suggest recollection if clinically indicated. Performing Locations *1: This test was performed at: [address], [address] , [place] Comment: Performed By: #### GFR, BMP, PBNP, TROP #### [address] [address] #### ANEU, ADIFF, CBC #### [address] [address] ua on 2020-02-25 Color (U) Yellow Normal 02-25-2020 [facility] ([address]) Comment: Performed By: #### GFR, BMP, PBNP, TROP #### [address] [address] #### ANEU, ADIFF, CBC #### [address] [address] Glucose (U) [Mass/Vol] 500 Negative mg/dL Abnormal 020 [facility] ([place] ([address]444) Comment: Performed By: #### GFR, BMP, PBNP, TROP #### [address] [address] #### ANEU, ADIFF, CBC #### [address] [address] Ketones Ql (U) Negative Negative Normal 02-25-2020 [facility] ([place]) ([address]) Comment: Performed By: #### GFR, BMP, PBNP, TROP #### [address] [address] #### ANEU, ADIFF, CBC #### [address] [address] UA Appear Clear Clear Normal 02-25-2020 [facility] ([place] ([address]) Comment: Performed By: #### GFR, BMP, PBNP, TROP #### [place] [address] #### ANEU, ADIFF, CBC #### [address] [address] UA Blood Trace Negative Abnormal 02-25-2020 [facility] ([place] ([address]) Comment: Performed By: #### GFR, BMP, PBNP, TROP #### [place] [address] #### ANEU, ADIFF, CBC #### [address] [address] UA Leuk Est Negative Negative Normal 02-25-2020 [facility] ([place] (87490) Comment: Performed By: #### GFR, BMP, PBNP, TROP #### [place] [address] #### ANEU, ADIFF, CBC #### [address] [address] UA Nitrite Negative Negative Normal 02-25-2020 [facility] ([place] ([address]352) Comment: Performed By: #### GFR, BMP, PBNP, TROP #### [place] [address] #### ANEU, ADIFF, CBC #### [address] [address] UA pH 7.0 5.0 - 8.0 Normal 02-25-2020 [facility] ([place] ([address]162) Comment: Performed By: #### GFR, BMP, PBNP, TROP #### [place] [address] #### ANEU, ADIFF, CBC #### [address] [address] UA Protein Trace Negative Normal 02-25-2020 [facility] ([place] ([address]) Comment: Performed By: #### GFR, BMP, PBNP, TROP #### [place] [address] #### ANEU, ADIFF, CBC #### [address] [address] UA Spec Grav 1.020 1.015-1.025 Normal 02-25-2020 [facility] ([place] ([address]) Comment: Performed By: #### GFR, BMP, PBNP, TROP #### [place] [address] #### ANEU, ADIFF, CBC #### [address] [address] UA Specimen Type Clean Catch Normal 02-25-2020 [facility] ([place] ([address]) Comment: Performed By: #### GFR, BMP, PBNP, TROP #### [place] [address] #### ANEU, ADIFF, CBC #### [address] [address] UA Urobilinogen 0.2 0.2-1.0 E.U./dL Normal 02-25-2020 [facility] ([place]) ([address]35) Comment: Performed By: #### GFR, BMP, PBNP, TROP #### [place] [address] #### ANEU, ADIFF, CBC #### [address] [address] Urobilinogen Qn (U) Negative Negative Normal 02-25-2020 [facility] ([place] (0000 0) Comment: Performed By: #### GFR, BMP, PBNP, TROP #### [address] [address] #### ANEU, ADIFF, CBC #### [address] [address] trop on 2020-02-25 Troponin I.cardiac <0.020 0.000-0.040 ng/mL Normal 0 [facility] [Mass/Vol] [facility] ([place]) ([address]) Comment: Result Comment: Troponin I r eference range: 0.00-0.040 ng/mL Negative an d non-diagnostic. >0.040 ng/mL Consistent with cardiac damage, increased clinical risk and possibility of myocardial in farction. Serial measurements, a rise & fall in test results, clinical histo ry, appropriate symptoms and/or ECG changes may help assess possibility of PA. *Other non-acute coronary sy ndrome conditions such as CHF, myoc arditis, pulmonary emboli, sepsis and cardiac surgery could result in myoc ardial damage and increased troponi n levels. Performed By: #### GFR, BMP, PBNP, TROP #### [place] [address] #### ANEU, ADIFF, CBC #### [address] [address] phv on 2020-02-25 pH Venous 7.39 7.31-7.41 Normal 02-25-2020 [facility] ([place] ([address]3585) Comment: Performed By: #### GFR, BMP, PBNP, TROP #### [place] [address] #### ANEU, ADIFF, CBC #### [address] [address] lip on 2020-02-25 Lipase Level 76 73-393 U/L Normal 02-25-2020 [facility] ([place]) ([address]) Comment: Performed By: #### GFR, BMP, PBNP, TROP #### [place] [address] #### ANEU, ADIFF, CBC #### [address] [address] cmp on 2020-02-25 Albumin [Mass/Vol] 3.6 3.4-4.8 G/dL Normal 02-25-2020 [facility] ([place] ([address]68) Comment: Performed By: #### GFR, BMP, PBNP, TROP #### [place] [address] #### ANEU, ADIFF, CBC #### [address] [address] Albumin/Globulin [Mass ratio] 1.0 1.1-2.5 ratio Low 02-25-2020 [facility] ([place] (77896) Comment: Performed By: #### GFR, BMP, PBNP, TROP #### [place] [address] #### ANEU, ADIFF, CBC #### [address] [address] ALP [Catalytic activity/Vol] 192 40-135 U/L High 0 02-25-2020 [facility] ([place] (0000 0) Comment: Performed By: #### GFR, BMP, PBNP, TROP #### [place] [address] #### ANEU, ADIFF, CBC #### [address] [address] ALT [Catalytic activity/Vol] 21 10-35 U/L Normal 0 02-25-2020 [facility] ([place] (0000 0) Comment: Performed By: #### GFR, BMP, PBNP, TROP #### [place] [address] #### ANEU, ADIFF, CBC #### [address] [address] AST [Catalytic activity/Vol] 14 10-40 U/L Normal 0 02-25-2020 [facility] ([place] (0000 0) Comment: Performed By: #### GFR, BMP, PBNP, TROP #### [place] [address] #### ANEU, ADIFF, CBC #### [address] [address] Bili Total 1.0 0.2-1.0 mg/dL Normal 02-25-2020 [facility] ([place] ([id number]) Comment: Result Comment: Use of this assay is not recommended for patients undergoing treatment with eltrombopag d ue to the potential for falsely elevated results. Performed By: #### GFR, BMP, PBNP, TROP #### [place] [address] #### ANEU, ADIFF, CBC #### [address] [address] Calcium [Mass/Vol] 9.6 8.4-10.2 mg/dL Normal 02-25-2020 [facility] ([place] (0000 0) Comment: Performed By: #### GFR, BMP, PBNP, TROP #### [place] [address] #### ANEU, ADIFF, CBC #### [address] [address] Chloride [Moles/Vol] 97 98-107 mmol/L Low 0 [facility] ([place] ([address]808) Comment: Performed By: #### GFR, BMP, PBNP, TROP #### [place] [address] #### ANEU, ADIFF, CBC #### [address] [address] CO2 [Moles/Vol] 34 23-31 mmol/L High 02-25-2020 [facility] ([place]) ([address]) Comment: Performed By: #### GFR, BMP, PBNP, TROP #### [place] [address] #### ANEU, ADIFF, CBC #### [address] [address] Creatinine [Mass/Vol] 1.31 0.55-1.02 mg/dL High 02-25-20 20 [facility] ([place] (0000 0) Comment: Performed By: #### GFR, BMP, PBNP, TROP #### [place] [address] #### ANEU, ADIFF, CBC #### [address] [address] Electrolyte Balance 4.0 mEq/L Normal 02-25-2020 [facility] ([place] ([address]78) Comment: Performed By: #### GFR, BMP, PBNP, TROP #### [place] [address] #### ANEU, ADIFF, CBC #### [address] [address] Globulin (S) [Mass/Vol] 3.6 G/dL Normal 2019 [facility] ([place]) ([address]992) Comment: Performed By: #### GFR, BMP, PBNP, TROP #### [place] [address] #### ANEU, ADIFF, CBC #### [address] [address] Glucose [Mass/Vol] 428 80-115 mg/dL Critically abnormal 0 02-25-2020 [facility] ([place]) ([address]598) Comment: Performed By: #### GFR, BMP, PBNP, TROP #### [place] [address] #### ANEU, ADIFF, CBC #### [address] [address] Potassium [Moles/Vol] 4.8 3.5-5.1 mmol/L Normal 02-25-20 [facility] ([place]) (0000 0) Comment: Performed By: #### GFR, BMP, PBNP, TROP #### [place] [address] #### ANEU, ADIFF, CBC #### [address] [address] Protein [Mass/Vol] 7.2 6.4-8.2 G/dL Normal 02-25-2020 [facility] ([place]) ([address]609) Comment: Performed By: #### GFR, BMP, PBNP, TROP #### [place] [address] #### ANEU, ADIFF, CBC #### [address] [address] Sodium [Moles/Vol] 135 136-145 mmol/L Low 02-25-2020 [facility]ly [facility], [facility] ([place]) ([address]22) Comment: Performed By: #### GFR, BMP, PBNP, TROP #### [place] [address] #### ANEU, ADIFF, CBC #### [address] [address] Urea nitrogen [Mass/Vol] 17 7-18 mg/dL Normal 02-24 [facility]ly [facility], [facility] ([place]) (0000 0) Comment: Performed By: #### GFR, BMP, PBNP, TROP #### [place] [address] #### ANEU, ADIFF, CBC #### [address] [address] Urea nitrogen/Creatinine [Mass 13 7-27 ratio Normal 02-25-2020 [facility] ratio] [facility] ([place]) ([id number]) Comment: Performed By: #### GFR, BMP, PBNP, TROP #### [place] [address] #### ANEU, ADIFF, CBC #### [address] [address] cbc on 2020-02-25 Erythrocyte distribution 14.8 11.5-14.5 % High 02-24 [facility]ly [facility], [facility]–1983 width (RBC) [Ratio] ([place]) ([id number]) Comment: Performed By: #### GFR, BMP, PBNP, TROP #### [place] [address] #### ANEU, ADIFF, CBC #### [address] [address] Hematocrit (Bld) [Volume 40.2 37.0-47.0 % Normal 02-24 [facility], [facility]–1983 fraction] ([place]) (0000 0) Comment: Performed By: #### GFR, BMP, PBNP, TROP #### [place] [address] #### ANEU, ADIFF, CBC #### [address] [address] Hemoglobin (Bld) 13.2 12.0-16.0 G/dL Normal 02-25-2020 [facility] [Mass/Vol] [place] ([place]) (25172) Comment: Performed By: #### GFR, BMP, PBNP, TROP #### [place] [address] #### ANEU, ADIFF, CBC #### [address] [address] MCH (RBC) [Entitic mass] 27.7 27.0-31.2 pg Normal 02-24 [facility], [facility] ([place]) (0000 0) Comment: Performed By: #### GFR, BMP, PBNP, TROP #### [place] [address] #### ANEU, ADIFF, CBC #### [address] [address] MCHC (RBC) [Mass/Vol] 32.8 33.0-37.0 G/dL Low 02-25-20 [facility], [facility] ([place]) (0000 0) Comment: Performed By: #### GFR, BMP, PBNP, TROP #### [place] [address] #### ANEU, ADIFF, CBC #### [address] [address] MCV (RBC) [Entitic vol] 84.5 80.0-94.0 fL Normal 2019 [facility] ([place]) (0000 0) Comment: Performed By: #### GFR, BMP, PBNP, TROP #### [place] [address] #### ANEU, ADIFF, CBC #### [address] [address] Platelet mean volume 8.1 7.4-10.4 fL Normal 0 [facility], [facility] (Bld) [Entitic vol] ([place]) ([id number]) Comment: Performed By: #### GFR, BMP, PBNP, TROP #### [place] [address] #### ANEU, ADIFF, CBC #### [address] [address] Platelets (Bld) [#/Vol] 265 130-400 10 3/mcL Normal 2019 [facility], [facility] ([place]) (41576) Comment: Performed By: #### GFR, BMP, PBNP, TROP #### [place] [address] #### ANEU, ADIFF, CBC #### [address] [address] RBC (Bld) [#/Vol] 4.76 4.20-5.40 10 6/mcL Normal 02-25-2020 A [facility] ([place]) (0000 0) Comment: Performed By: #### GFR, BMP, PBNP, TROP #### [place] [address] #### ANEU, ADIFF, CBC #### [address] [address] WBC (Bld) [#/Vol] 11.20 4.60-10.80 10 3/mcL High 02-25-2020 [facility] ([place]) (0000 0) Comment: Performed By: #### GFR, BMP, PBNP, TROP #### [place] [address] #### ANEU, ADIFF, CBC #### [address] [address] isis on 2020-02-25 Acetone (s) Negative Negative Normal 02-25-2020 [facility], [facility] ([place]) ([id number]) Comment: Performed By: #### GFR, BMP, PBNP, TROP #### [place] [address] #### ANEU, ADIFF, CBC #### [address] [address] .neuabs on Neutrophils (Bld) 8.50 2.85-6.16 10 3/mcL High 02-25-2020 [facility] [#/Vol] [facility] ([place]) (30480) Comment: Performed By: #### GFR, BMP, PBNP, TROP #### [address] [address] #### ANEU, ADIFF, CBC #### [address] [address] .gfr on 2020-02-25 GFR 49 ml/min/1.73sqm Normal [facility] ([place] (0000 0) Comment: Result Comment: GFR Population mean for Afri can Marshallese, Non- Americans Ages 20-29 = 116 mL/min/1.73 [...] By: #### GFR, BMP, PBNP, TROP #### [address] [address] #### ANEU, ADIFF, CBC #### [address] [address] GFR Non- 41 ml/min/1.73sqm Normal 02-25-2020 [facility] ([place] (45827) Comment: Result Comment: GFR Population mean for Afri can Marshallese, Non- Americans Ages 20-29 = 116 mL/min/1.73 [...] By: #### GFR, BMP, PBNP, TROP #### [place] [address] #### ANEU, ADIFF, CBC #### [address] [address] .auto diff on 02-24 Ammonia (P) [Mass/Vol] 0.80 0.15-1.00 10 3/mcL Normal 020 [facility] ([place] ([id number]) Comment: Performed By: #### GFR, BMP, PBNP, TROP #### [place] [address] #### ANEU, ADIFF, CBC #### [address] [address] Basophils (Bld) 0.10 0.00-0.19 10 3/mcL Normal 02-25-2020 [facility] [#/Vol] [facility] ([place]) (01223) Comment: Performed By: #### GFR, BMP, PBNP, TROP #### [place] [address] #### ANEU, ADIFF, CBC #### [address] [address] Basophils/100 WBC (Bld) 0.6 0.0-2.5 % Normal 2019 [facility] ([place] (0000 0) Comment: Performed By: #### GFR, BMP, PBNP, TROP #### [place] [address] #### ANEU, ADIFF, CBC #### [address] [address] Eosinophils (Bld) 0.30 0.00-0.40 10 3/mcL Normal 02-25-2020 [facility] [#/Vol] [facility] ([place] (46050) Comment: Performed By: #### GFR, BMP, PBNP, TROP #### [place] [address] #### ANEU, ADIFF, CBC #### [address] [address] Eosinophils/100 WBC (Bld) 2.4 0.0-7.0 % Normal 070 [facility] ([place]) (0000 0) Comment: Performed By: #### GFR, BMP, PBNP, TROP #### [place] [address] #### ANEU, ADIFF, CBC #### [address] [address] Lymphocytes (Bld) 1.60 0.77-3.85 10 3/mcL Normal 02-25-2020 [facility] [#/Vol] [facility] ([place]) (36328) Comment: Performed By: #### GFR, BMP, PBNP, TROP #### [place] [address] #### ANEU, ADIFF, CBC #### [address] [address] Lymphocytes/100 WBC (Bld) 14.6 10.0-50.0 % Normal [facility] ([place]) ([id number]) Comment: Performed By: #### GFR, BMP, PBNP, TROP #### [place] [address] #### ANEU, ADIFF, CBC #### [address] [address] Monocytes/100 WBC (Bld) 6.8 1.7-13.0 % Normal 2019 [facility] ([place]) (0000 0) Comment: Performed By: #### GFR, BMP, PBNP, TROP #### [place] [address] #### ANEU, ADIFF, CBC #### [address] [address] Neutrophils/100 WBC (Bld) 75.6 37.0-80.0 % Normal [facility] ([place]) (05404) Comment: Performed By: #### GFR, BMP, PBNP, TROP #### [place] [address] #### ANEU, ADIFF, CBC #### [address] [address] vidh on 2020-02-24 Vit. D 25-Hydroxy 24 ng/mL Normal 02-24-2020 [facility] ([place]) ([id number]) Comment: Result Comment: Interpretive Values Based on Total 25(OH)D: Severe Deficiency <20 ng/mL Mild to Moderate Deficiency 20-30 ng/mL Optimum Levels 30-100 ng/mL Toxicity Possible >100 ng/mL Performed By: #### GFR, BMP, PBNP, TROP #### [place] [address] #### ANEU, ADIFF, CBC #### [address] [address] uric on 2020-02-24 Uric Acid Lvl 4.7 2.6-6.2 mg/dL Normal 02-24-2020 [facility] ([place]) (31601) Comment: Performed By: #### GFR, BMP, PBNP, TROP #### [place] [address] #### ANEU, ADIFF, CBC #### [address] [address] tsh on 2020-02-24 TSH Qn 2.13 0.36-3.74 mcIU/mL Normal 02-24-2020 [facility] ([place]) ([id number]) Comment: Performed By: #### GFR, BMP, PBNP, TROP #### [place] [address] #### ANEU, ADIFF, CBC #### [address] [address] lipid on 2020-02-24 Cholesterol [Mass/Vol] 134 0-200 mg/dL Normal 020 [facility] ([place]) (0000 0) Comment: Result Comment: Cholesterol Reference Interval: Less than 200 Desirable 200-239 Borderline high risk 240 and above High risk Performed By: #### GFR, BMP, PBNP, TROP #### [place] [address] #### ANEU, ADIFF, CBC #### [address] [address] Cholesterol in HDL 45 40-60 mg/dL Normal 02-24-2020 [facility] [Mass/Vol] ([place]) (000 00) Comment: Performed By: #### GFR, BMP, PBNP, TROP #### [place] [address] #### ANEU, ADIFF, CBC #### [address] [address] Cholesterol in LDL 55 0-130 mg/dL Normal 02-24-2020 [facility] [Mass/Vol] ([place]) (000 00) Comment: Performed By: #### GFR, BMP, PBNP, TROP #### [place] [address] #### ANEU, ADIFF, CBC #### [address] [address] Triglyceride [Mass/Vol] 171 0-150 mg/dL High 2019 [facility] ([place]) (0000 0) Comment: Result Comment: Triglyceride Reference Interval: Less than 150 Normal 150-199 Borderline high risk 200-499 High risk 500 or higher Very high risk Performed By: #### GFR, BMP, PBNP, TROP #### [place] [address] #### ANEU, ADIFF, CBC #### [address] [address] ft4 on 2020-02-24 Free T4 [Mass/Vol] 1.37 0.76-1.46 ng/dL Normal 02-24-2020 [facility] ([place]) (0000 0) Comment: Performed By: #### GFR, BMP, PBNP, TROP #### [place] [address] #### ANEU, ADIFF, CBC #### [address] [address] cmp on 2020-02-24 Albumin [Mass/Vol] 3.5 3.4-4.8 G/dL Normal 02-24-2020 [facility] ([place]) ([id number]) Comment: Performed By: #### GFR, BMP, PBNP, TROP #### [place] [address] #### ANEU, ADIFF, CBC #### [address] [address] Albumin/Globulin [Mass ratio] 1.0 1.1-2.5 ratio Low 02-24-2020 [facility] ([place] ([id number]) Comment: Performed By: #### GFR, BMP, PBNP, TROP #### [place] [address] #### ANEU, ADIFF, CBC #### [address] [address] ALP [Catalytic activity/Vol] 193 40-135 U/L High 0 02-24-2020 [facility] ([place] (0000 0) Comment: Performed By: #### GFR, BMP, PBNP, TROP #### [place] [address] #### ANEU, ADIFF, CBC #### [address] [address] ALT [Catalytic activity/Vol] 22 10-35 U/L Normal 0 02-24-2020 [facility] ([place] (0000 0) Comment: Performed By: #### GFR, BMP, PBNP, TROP #### [place] [address] #### ANEU, ADIFF, CBC #### [address] [address] AST [Catalytic activity/Vol] 16 10-40 U/L Normal 0 02-24-2020 [facility] ([place] (0000 0) Comment: Performed By: #### GFR, BMP, PBNP, TROP #### [place] [address] #### ANEU, ADIFF, CBC #### [address] [address] Bili Total 0.7 0.2-1.0 mg/dL Normal 02-24-2020 [facility] ([place] ([id number]) Comment: Result Comment: Use of this assay is not recommended for patients undergoing treatment with eltrombopag d ue to the potential for falsely elevated results. Performed By: #### GFR, BMP, PBNP, TROP #### [place] [address] #### ANEU, ADIFF, CBC #### [address] [address] Calcium [Mass/Vol] 9.3 8.4-10.2 mg/dL Normal 02-24-2020 [facility] ([place] (0000 0) Comment: Performed By: #### GFR, BMP, PBNP, TROP #### [place] [address] #### ANEU, ADIFF, CBC #### [address] [address] Chloride [Moles/Vol] 95 98-107 mmol/L Low 0 [facility] ([place] (65934) Comment: Performed By: #### GFR, BMP, PBNP, TROP #### [place] [address] #### ANEU, ADIFF, CBC #### [address] [address] CO2 [Moles/Vol] 30 23-31 mmol/L Normal 02-24-2020 [facility] ([place]) (18324) Comment: Performed By: #### GFR, BMP, PBNP, TROP #### [place] [address] #### ANEU, ADIFF, CBC #### [address] [address] Creatinine [Mass/Vol] 1.28 0.55-1.02 mg/dL High 02-24-20 [facility] ([place]) (0000 0) Comment: Performed By: #### GFR, BMP, PBNP, TROP #### [place] [address] #### ANEU, ADIFF, CBC #### [address] [address] Electrolyte Balance 8.0 mEq/L Normal 02-24-2020 [facility] ([place]) ([id number]) Comment: Performed By: #### GFR, BMP, PBNP, TROP #### [place] [address] #### ANEU, ADIFF, CBC #### [address] [address] Globulin (S) [Mass/Vol] 3.4 G/dL Normal 2019 [facility] ([place]) (69297) Comment: Performed By: #### GFR, BMP, PBNP, TROP #### [place] [address] #### ANEU, ADIFF, CBC #### [address] [address] Glucose [Mass/Vol] 458 80-115 mg/dL Critically abnormal 0 02-24-2020 [facility] ([place] (63228) Comment: Performed By: #### GFR, BMP, PBNP, TROP #### [place] [address] #### ANEU, ADIFF, CBC #### [address] [address] Potassium [Moles/Vol] 4.6 3.5-5.1 mmol/L Normal 02-24-20 [facility] ([place]) (0000 0) Comment: Performed By: #### GFR, BMP, PBNP, TROP #### [place] [address] #### ANEU, ADIFF, CBC #### [address] [address] Protein [Mass/Vol] 6.9 6.4-8.2 G/dL Normal 02-24-2020 [facility] ([place]) (01018) Comment: Performed By: #### GFR, BMP, PBNP, TROP #### [place] [address] #### ANEU, ADIFF, CBC #### [address] [address] Sodium [Moles/Vol] 133 136-145 mmol/L Low 02-24-2020 [facility] ([place]) (25489) Comment: Performed By: #### GFR, BMP, PBNP, TROP #### [place] [address] #### ANEU, ADIFF, CBC #### [address] [address] Urea nitrogen [Mass/Vol] 17 7-18 mg/dL Normal 02-23 [facility] ([place] (0000 0) Comment: Performed By: #### GFR, BMP, PBNP, TROP #### [place] [address] #### ANEU, ADIFF, CBC #### [address] [address] Urea nitrogen/Creatinine [Mass 13 7-27 ratio Normal 02-24-2020 [facility]] [facility] ([place]) ([address]227) Comment: Performed By: #### GFR, BMP, PBNP, TROP #### [place] [address] #### ANEU, ADIFF, CBC #### [address] [address] a1c on 2020-02-24 HbA1c (Bld) [Mass fraction] 9.2 4.3-6.4 % High [facility] ([place]) (0000 0) Comment: Performed By: #### GFR, BMP, PBNP, TROP #### [place] [address] #### FRED DIAZ, CBC #### [place] [address] [place], [place] [address] .gfr on 2020-02-24 GFR Non- 42 ml/min/1.73sqm Normal 02-24-2020 [facility] ([place] ([id number]) Comment: Result Comment: GFR Population mean for Afri can Marshallese, Non- Americans Ages 20-29 = 116 mL/min/1.73 [...] By: #### GFR, BMP, PBNP, TROP #### [place] [address] #### FRED DIAZ, CBC #### [address] [address] GFR 51 ml/min/1.73sqm Normal [facility] ([place] (0000 0) Comment: Result Comment: GFR Population mean for Afri can Marshallese, Non- Americans Ages 20-29 = 116 mL/min/1.73 [...] By: #### GFR, BMP, PBNP, TROP #### [place] [address] #### ANEU, ADIFF, CBC #### [address] [address] vidh on 2019-11-16 Vit. D 25-Hydroxy 21 ng/mL Normal 11-16-2019 A [facility] ([place]) (48292) Comment: Result Comment: Interpretive Values Based on Total 25(OH)D: Severe Deficiency <20 ng/mL Mild to Moderate Deficiency 20-30 ng/mL Optimum Levels 30-100 ng/mL Toxicity Possible >100 ng/mL Performed By: #### GFR, BMP, PBNP, TROP #### [place] [address] #### ANEU, ADIFF, CBC #### [address] [address] tsh on 2019-11-16 TSH Qn 2.00 0.36-3.74 mcIU/mL Normal 11-16-2019 [facility] ([place]) ([id number]) Comment: Performed By: #### GFR, BMP, PBNP, TROP #### [place] [address] #### ANEU, ADIFF, CBC #### [address] [address] lipid on 2019-11-16 Cholesterol [Mass/Vol] 157 0-200 mg/dL Normal 020 [facility] ([place]) (0000 0) Comment: Result Comment: Cholesterol Reference Interval: Less than 200 Desirable 200-239 Borderline high risk 240 and above High risk Performed By: #### GFR, BMP, PBNP, TROP #### [place] [address] #### ANEU, ADIFF, CBC #### [address] [address] Cholesterol in HDL 70 40-60 mg/dL High 11-16-2019 [facility] [Mass/Vol] ([place]) (000 00) Comment: Performed By: #### GFR, BMP, PBNP, TROP #### [place] [address] #### ANEU, ADIFF, CBC #### [address] [address] Cholesterol in LDL 67 0-130 mg/dL Normal 11-16-2019 [facility] [Mass/Vol] ([place]) (000 00) Comment: Performed By: #### GFR, BMP, PBNP, TROP #### [place] [address] #### ANEU, ADIFF, CBC #### [address] [address] Triglyceride [Mass/Vol] 100 0-150 mg/dL Normal 2019 [facility] ([place] (0000 0) Comment: Result Comment: Triglyceride Reference Interval: Less than 150 Normal 150-199 Borderline high risk 200-499 High risk 500 or higher Very high risk Performed By: #### GFR, BMP, PBNP, TROP #### [place] [address] #### ANEU, ADIFF, CBC #### [address] [address] cmp on 2019-11-16 Albumin [Mass/Vol] 3.4 3.4-4.8 G/dL Normal 11-16-2019 [facility] ([place] ([id number]) Comment: Performed By: #### GFR, BMP, PBNP, TROP #### [place] [address] #### ANEU, ADIFF, CBC #### [address] [address] Albumin/Globulin [Mass ratio] 1.0 1.1-2.5 ratio Low 11-16-2019 [facility] ([place]) (22051) Comment: Performed By: #### GFR, BMP, PBNP, TROP #### [place] [address] #### ANEU, ADIFF, CBC #### [address] [address] ALP [Catalytic activity/Vol] 197 40-135 U/L High 0 11-16-2019 [facility] ([place]) (0000 0) Comment: Performed By: #### GFR, BMP, PBNP, TROP #### [place] [address] #### ANEU, ADIFF, CBC #### [address] [address] ALT [Catalytic activity/Vol] 39 10-35 U/L High 0 11-16-2019 [facility] ([place]) (0000 0) Comment: Performed By: #### GFR, BMP, PBNP, TROP #### [place] [address] #### ANEU, ADIFF, CBC #### [address] [address] AST [Catalytic activity/Vol] 21 10-40 U/L Normal 0 11-16-2019 [facility] ([place] (0000 0) Comment: Performed By: #### GFR, BMP, PBNP, TROP #### [place] [address] #### ANEU, ADIFF, CBC #### [address] [address] Bili Total 0.9 0.2-1.0 mg/dL Normal 11-16-2019 [facility] ([place] (41200) Comment: Result Comment: Use of this assay is not recommended for patients undergoing treatment with eltrombopag d ue to the potential for falsely elevated results. Performed By: #### GFR, BMP, PBNP, TROP #### [place] [address] #### ANEU, ADIFF, CBC #### [address] [address] Calcium [Mass/Vol] 9.1 8.4-10.2 mg/dL Normal 11-16-2019 [facility] ([place] (0000 0) Comment: Performed By: #### GFR, BMP, PBNP, TROP #### [place] [address] #### ANEU, ADIFF, CBC #### [address] [address] Chloride [Moles/Vol] 99 98-107 mmol/L Normal 0 [facility] ([place] (0000 0) Comment: Performed By: #### GFR, BMP, PBNP, TROP #### [address] [address] #### ANEU, ADIFF, CBC #### [address] [address] CO2 [Moles/Vol] 30 23-31 mmol/L Normal 11-16-2019 [facility] ([place]) ([address]20) Comment: Performed By: #### GFR, BMP, PBNP, TROP #### [place] [address] #### ANEU, ADIFF, CBC #### [address] [address] Creatinine [Mass/Vol] 1.22 0.55-1.02 mg/dL High 11-16-19 20 [facility] ([place] (0000 0) Comment: Performed By: #### GFR, BMP, PBNP, TROP #### [place] [address] #### ANEU, ADIFF, CBC #### [address] [address] Electrolyte Balance 7.0 mEq/L Normal 11-16-2019 [facility] ([place] ([id number]) Comment: Performed By: #### GFR, BMP, PBNP, TROP #### [place] [address] #### ANEU, ADIFF, CBC #### [address] [address] Globulin (S) [Mass/Vol] 3.3 G/dL Normal 2019 [facility] ([place] (48076) Comment: Performed By: #### GFR, BMP, PBNP, TROP #### [place] [address] #### ANEU, ADIFF, CBC #### [address] [address] Glucose [Mass/Vol] 329 80-115 mg/dL High 11-16-2019 [facility] ([place] (58288) Comment: Performed By: #### GFR, BMP, PBNP, TROP #### [place] [address] #### ANEU, ADIFF, CBC #### [address] [address] Potassium [Moles/Vol] 4.8 3.5-5.1 mmol/L Normal 11-16-19 [facility] ([place]) (0000 0) Comment: Performed By: #### GFR, BMP, PBNP, TROP #### [place] [address] #### ANEU, ADIFF, CBC #### [address] [address] Protein [Mass/Vol] 6.7 6.4-8.2 G/dL Normal 11-16-2019 [facility] ([place]) ([id number]) Comment: Performed By: #### GFR, BMP, PBNP, TROP #### [place] [address] #### ANEU, ADIFF, CBC #### [address] [address] Sodium [Moles/Vol] 136 136-145 mmol/L Normal 11-16-2019 [facility] ([place]) (0000 0) Comment: Performed By: #### GFR, BMP, PBNP, TROP #### [place] [address] #### ANEU, ADIFF, CBC #### [address] [address] Urea nitrogen [Mass/Vol] 14 7-18 mg/dL Normal 11-15 [facility] ([place]) (0000 0) Comment: Performed By: #### GFR, BMP, PBNP, TROP #### [place] [address] #### ANEU, ADIFF, CBC #### [address] [address] Urea nitrogen/Creatinine [Mass 11 7-27 ratio Normal 11-16-2019 [facility]] [facility] ([place]) ([id number]) Comment: Performed By: #### GFR, BMP, PBNP, TROP #### [address] [address] #### ANEU, ADIFF, CBC #### [address] [address] a1c on 2019-11-16 HbA1c (Bld) [Mass fraction] 8.5 4.3-6.4 % High [facility] ([place] (0000 0) Comment: Performed By: #### GFR, BMP, PBNP, TROP #### [address] [address] #### ANEU, ADIFF, CBC #### [address] [address] .gfr on 2019-11-16 GFR Non- 44 ml/min/1.73sqm Normal 11-16-2019 [facility] ([place] ([id number]) Comment: Result Comment: GFR Population mean for Afri can Marshallese, Non- Americans Ages 20-29 = 116 mL/min/1.73 [...] By: #### GFR, BMP, PBNP, TROP #### [address] [address] #### ANEU, ADIFF, CBC #### [address] [address] GFR 54 ml/min/1.73sqm Normal 03- [facility] ([place]) (0000 0) Comment: Result Comment: GFR Population mean for Afri can Marshallese, Non- Americans Ages 20-29 = 116 mL/min/1.73 [...] By: #### GFR, BMP, PBNP, TROP #### [place] [address] #### ANEU, ADIFF, CBC #### [address] [address] mri spine lumbar w/o contrast on 2019-08-18 MRI SPINE LUMBAR ORIGINAL Normal 08-18-2019 [facility] W/O CONTRAST MRI SPINE LUMBAR W/O CONTRAST [facility] ([place]) ([id number]) ORDERING PROVIDER: JENNY VIDES CLINICAL STATEMENT: lumbosacral root disease. TECHNIQUE: Sagittal T2, T1 and STIR; axial T1 and T2 weighte d images. COMPARISON: None. Vertebral Nomenclature: For purposes of this dictation, it is assumed that there are 5 [id number], lumbar-type vertebrae, and the most caudal fully [...] Erythrocyte distribution 14.6 11.5-14.5 % High 08-17 [facility], [facility] width (RBC) [Ratio] ([place]) ([id number]) Comment: Performed By: #### GFR, BMP, PBNP, TROP #### [address] [address] #### ANEU, ADIFF, CBC #### [address] [address] Hematocrit (Bld) [Volume 37.4 37.0-47.0 % Normal 08-17 [facility] fraction] ([place]) (0000 0) Comment: Performed By: #### GFR, BMP, PBNP, TROP #### [address] [address] #### ANEU, ADIFF, CBC #### [address] [address] Hemoglobin (Bld) 12.4 12.0-16.0 G/dL Normal 08-17-2019 [facility] [Mass/Vol] [facility] ([place]) ([id number]) Comment: Performed By: #### GFR, BMP, PBNP, TROP #### [address] [address] #### ANEU, ADIFF, CBC #### [address] [address] MCH (RBC) [Entitic mass] 27.8 27.0-31.2 pg Normal 08-17 [facility] ([place]) (0000 0) Comment: Performed By: #### GFR, BMP, PBNP, TROP #### [place] [address] #### ANEU, ADIFF, CBC #### [address] [address] MCHC (RBC) [Mass/Vol] 33.1 33.0-37.0 G/dL Normal 08-17-20 19 [facility] ([place]) (0000 0) Comment: Performed By: #### GFR, BMP, PBNP, TROP #### [place] [address] #### ANEU, ADIFF, CBC #### [address] [address] MCV (RBC) [Entitic vol] 83.8 80.0-94.0 fL Normal 2018 [facility] ([place]) (0000 0) Comment: Performed By: #### GFR, BMP, PBNP, TROP #### [place] [address] #### ANEU, ADIFF, CBC #### [address] [address] Platelet mean volume 7.7 7.4-10.4 fL Normal 9 [facility] (d) [Entitic vol] ([place]) ([id number]) Comment: Performed By: #### GFR, BMP, PBNP, TROP #### [place] [address] #### ANEU, ADIFF, CBC #### [address] [address] Platelets (Bld) [#/Vol] 277 130-400 10 3/mcL Normal 2018 Formerly [facility], [facility] ([place]) ([id number]) Comment: Performed By: #### GFR, BMP, PBNP, TROP #### [facility] [address] [place], [place] [address] #### ANEU, ADIFF, CBC #### [address] [address] RBC (Bld) [#/Vol] 4.47 4.20-5.40 10 6/mcL Normal 08-17-2019 A [facility] ([place]) (0000 0) Comment: Performed By: #### GFR, BMP, PBNP, TROP #### [place] [address] #### ANEU, ADIFF, CBC #### [address] [address] WBC (Bld) [#/Vol] 10.70 4.60-10.80 10 3/mcL Normal 08-17-2019 Formerly [facility], [facility] ([place] ([id number]) Comment: Performed By: #### GFR, BMP, PBNP, TROP #### [place] [address] #### ANEU, ADIFF, CBC #### [address] [address] bmp on 2019-08-17 Calcium [Mass/Vol] 9.1 8.4-10.2 mg/dL Normal 08-17-2019 [facility]ly [facility] ([place] (0000 0) Comment: Performed By: #### GFR, BMP, PBNP, TROP #### [place] [address] #### ANEU, ADIFF, CBC #### [address] [address] Chloride [Moles/Vol] 100 98-107 mmol/L Normal 9 [facility]ly [facility] ([place] (0000 0) Comment: Performed By: #### GFR, BMP, PBNP, TROP #### [place] [address] #### ANEU, ADIFF, CBC #### [address] [address] CO2 [Moles/Vol] 29 23-31 mmol/L Normal 08-17-2019 [facility] ([place]) ([id number]) Comment: Performed By: #### GFR, BMP, PBNP, TROP #### [place] [address] #### ANEU, ADIFF, CBC #### [address] [address] Creatinine [Mass/Vol] 0.99 0.55-1.02 mg/dL Normal 08-17-20 19 [facility]ly [facility] ([place] ([id number]) Comment: Performed By: #### GFR, BMP, PBNP, TROP #### [place] [address] #### ANEU, ADIFF, CBC #### [address] [address] Electrolyte Balance 7.0 mEq/L Normal 08-17-2019 [facility]ly [facility] ([place] ([id number]) Comment: Performed By: #### GFR, BMP, PBNP, TROP #### [place] [address] #### ANEU, ADIFF, CBC #### [address] [address] Glucose [Mass/Vol] 319 80-115 mg/dL High 08-17-2019 [facility] ([place] ([id number]) Comment: Performed By: #### GFR, BMP, PBNP, TROP #### [place] [address] #### ANEU, ADIFF, CBC #### [address] [address] Potassium [Moles/Vol] 4.1 3.5-5.1 mmol/L Normal 08-17-20 19 [facility] ([place] (0000 0) Comment: Performed By: #### GFR, BMP, PBNP, TROP #### [place] [address] #### ANEU, ADIFF, CBC #### [address] [address] Sodium [Moles/Vol] 136 136-145 mmol/L Normal 08-17-2019 [facility] ([place] (0000 0) Comment: Performed By: #### GFR, BMP, PBNP, TROP #### [place] [address] #### ANEU, ADIFF, CBC #### [address] [address] Urea nitrogen [Mass/Vol] 12 7-18 mg/dL Normal 08-17 [facility] ([place] (0000 0) Comment: Performed By: #### GFR, BMP, PBNP, TROP #### [place] [address] #### ANEU, ADIFF, CBC #### [address] [address] Urea nitrogen/Creatinine [Mass 12 7-27 ratio Normal 08-17-2019 [facility]] [facility] ([place] ([id number]) Comment: Performed By: #### GFR, BMP, PBNP, TROP #### [place] [address] #### ANEU, ADIFF, CBC #### [address] [address] .neuabs on Neutrophils (Bld) 7.60 2.85-6.16 10 3/mcL High 08-17-2019 A [facility] [#/Vol] [facility] ([place] ([id number]) Comment: Performed By: #### GFR, BMP, PBNP, TROP #### [place] [address] #### ANEU, ADIFF, CBC #### [address] [address] .gfr on 2019-08-17 GFR 68 ml/min/1.73sqm Normal 07-21 [facility]ly [facility] ([place] (0000 0) Comment: Result Comment: GFR Population mean for Afri can Marshallese, Non- Americans Ages 20-29 = 116 mL/min/1.73 [...] By: #### GFR, BMP, PBNP, TROP #### [place] [address] #### ANEU, ADIFF, CBC #### [address] [address] GFR Non- 56 ml/min/1.73sqm Normal 08-17-2019 [facility] ([place] ([id number]) Comment: Result Comment: GFR Population mean for Afri can Marshallese, Non- Americans Ages 20-29 = 116 mL/min/1.73 [...] By: #### GFR, BMP, PBNP, TROP #### [place] [address] #### ANEU, ADIFF, CBC #### [address] [address] .auto diff on 08-17 Ammonia (P) [Mass/Vol] 0.70 0.15-1.00 10 3/mcL Normal 019 [facility] ([place] ([id number]) Comment: Performed By: #### GFR, BMP, PBNP, TROP #### [place] [address] #### ANEU, ADIFF, CBC #### [address] [address] Basophils (Bld) 0.10 0.00-0.19 10 3/mcL Normal 08-17-2019 [facility] [#/Vol] [facility] ([place]) ([id number]) Comment: Performed By: #### GFR, BMP, PBNP, TROP #### [place] [address] #### ANEU, ADIFF, CBC #### [address] [address] Basophils/100 WBC (Bld) 0.6 0.0-2.5 % Normal 2018 [facility] ([place]) (0000 0) Comment: Performed By: #### GFR, BMP, PBNP, TROP #### [place] [address] #### ANEU, ADIFF, CBC #### [address] [address] Eosinophils (Bld) 0.30 0.00-0.40 10 3/mcL Normal 08-17-2019 [facility] [#/Vol] [facility] ([place]) ([id number]) Comment: Performed By: #### GFR, BMP, PBNP, TROP #### [place] [address] #### ANEU, ADIFF, CBC #### [address] [address] Eosinophils/100 WBC (Bld) 2.6 0.0-7.0 % Normal 07-21 [facility] ([place]) (0000 0) Comment: Performed By: #### GFR, BMP, PBNP, TROP #### [place] [address] #### ANEU, ADIFF, CBC #### [address] [address] Lymphocytes (Bld) 2.10 0.77-3.85 10 3/mcL Normal 08-17-2019 A [facility] [#/Vol] [facility] ([place]) ([id number]) Comment: Performed By: #### GFR, BMP, PBNP, TROP #### [place] [address] #### ANEU, ADIFF, CBC #### [address] [address] Lymphocytes/100 WBC (Bld) 19.5 10.0-50.0 % Normal 07-21 [facility] ([place]) ([id number]) Comment: Performed By: #### GFR, BMP, PBNP, TROP #### [place] [address] #### ANEU, ADIFF, CBC #### [address] [address] Monocytes/100 WBC (Bld) 6.5 1.7-13.0 % Normal 2018 [facility] ([place]) (0000 0) Comment: Performed By: #### GFR, BMP, PBNP, TROP #### [place] [address] #### ANEU, ADIFF, CBC #### [address] [address] Neutrophils/100 WBC (Bld) 70.8 37.0-80.0 % Normal 07-21 [facility] ([place]) ([id number]) Comment: Performed By: #### GFR, BMP, PBNP, TROP #### [place] [address] #### ANEU, ADIFF, CBC #### [address] [address] xr femur minimum 2 views left on 2019-07-31 XR FEMUR MINIMUM 2 ORIGINAL Normal 07-31-2019 [facility] VIEWS LEFT XR FEMUR 4 VIEWS LEFT [facility] ([place] ([id number]) CLINICAL STATEMENT: pain, in left hip. COMPARISON: [...] 2019-06-14 CUR . Normal 06-14-2019 [facility] - Microbiology [facility] ([place]) ([id number]) PROCEDURE: Urine Culture [*1] SOURCE: Urine, Clean [...] Locations *1: This test was performed at: [facility], [address] [place] [address], [address] , [place] Comment: Performed By: #### GFR, BMP, PBNP, TROP #### [address] [address] #### ANEU, ADIFF, CBC #### [place] [address] [place], [place] [address] cbc on 2019-06-13 Erythrocyte distribution 15.3 11.5-14.5 % High 06-13 Formerly [facility], [facility]–1983 width (RBC) [Ratio] ([place]) ([id number]) Comment: Performed By: #### GFR, BMP, PBNP, TROP #### [place] [address] #### ANEU, ADIFF, CBC #### [address] [address] Hematocrit (Bld) [Volume 35.2 37.0-47.0 % Low 06-13 [facility] fraction] ([place]) (0000 0) Comment: Performed By: #### GFR, BMP, PBNP, TROP #### [place] [address] #### ANEU, ADIFF, CBC #### [address] [address] Hemoglobin (Bld) 11.6 12.0-16.0 G/dL Low 06-13-2019 [facility]ly [facility] [Mass/Vol] ([place]) (000 00) Comment: Performed By: #### GFR, BMP, PBNP, TROP #### [place] [address] #### ANEU, ADIFF, CBC #### [address] [address] MCH (RBC) [Entitic mass] 27.8 27.0-31.2 pg Normal 06-13 [facility] ([place]) (0000 0) Comment: Performed By: #### GFR, BMP, PBNP, TROP #### [place] [address] #### ANEU, ADIFF, CBC #### [address] [address] MCHC (RBC) [Mass/Vol] 33.0 33.0-37.0 G/dL Normal 06-13-20 [facility] ([place]) (0000 0) Comment: Performed By: #### GFR, BMP, PBNP, TROP #### [place] [address] #### ANEU, ADIFF, CBC #### [address] [address] MCV (RBC) [Entitic vol] 84.3 80.0-94.0 fL Normal 2018 [facility] ([place]) (0000 0) Comment: Performed By: #### GFR, BMP, PBNP, TROP #### [place] [address] #### ANEU, ADIFF, CBC #### [address] [address] Platelet mean volume 7.4 7.4-10.4 fL Normal 9 [facility]ly [facility], [facility] (Bld) [Entitic vol] ([place]) ([id number]) Comment: Performed By: #### GFR, BMP, PBNP, TROP #### [place] [address] #### ANEU, ADIFF, CBC #### [address] [address] Platelets (Bld) [#/Vol] 234 130-400 10 3/mcL Normal 2018 [facility] ([place]) ([id number]) Comment: Performed By: #### GFR, BMP, PBNP, TROP #### [place] [address] #### ANEU, ADIFF, CBC #### [address] [address] RBC (Bld) [#/Vol] 4.17 4.20-5.40 10 6/mcL Low 06-13-2019 A [facility] ([place]) (0000 0) Comment: Performed By: #### GFR, BMP, PBNP, TROP #### [place] [address] #### ANEU, ADIFF, CBC #### [address] [address] WBC (Bld) [#/Vol] 11.60 4.60-10.80 10 3/mcL High 06-13-2019 [facility] ([place]) (0000 0) Comment: Performed By: #### GFR, BMP, PBNP, TROP #### [place] [address] #### ANEU, ADIFF, CBC #### [address] [address] bmp on 2019-06-13 Calcium [Mass/Vol] 8.5 8.4-10.2 mg/dL Normal 06-13-2019 [facility] ([place] (0000 0) Comment: Performed By: #### GFR, BMP, PBNP, TROP #### [place] [address] #### ANEU, ADIFF, CBC #### [address] [address] Chloride [Moles/Vol] 101 98-107 mmol/L Normal 9 [facility] ([place] (0000 0) Comment: Performed By: #### GFR, BMP, PBNP, TROP #### [place] [address] #### ANEU, ADIFF, CBC #### [address] [address] CO2 [Moles/Vol] 38 23-31 mmol/L High 06-13-2019 [facility] ([place]) (22592) Comment: Performed By: #### GFR, BMP, PBNP, TROP #### [place] [address] #### ANEU, ADIFF, CBC #### [address] [address] Creatinine [Mass/Vol] 1.42 0.55-1.02 mg/dL High 06-13-20 19 [facility] ([place] (0000 0) Comment: Performed By: #### GFR, BMP, PBNP, TROP #### [place] [address] #### ANEU, ADIFF, CBC #### [address] [address] Electrolyte Balance 3.0 mEq/L Normal 06-13-2019 [facility] ([place] ([id number]) Comment: Performed By: #### GFR, BMP, PBNP, TROP #### [place] [address] #### ANEU, ADIFF, CBC #### [address] [address] Glucose [Mass/Vol] 164 80-115 mg/dL High 06-13-2019 [facility] ([place] (35489) Comment: Performed By: #### GFR, BMP, PBNP, TROP #### [place] [address] #### ANEU, ADIFF, CBC #### [address] [address] Potassium [Moles/Vol] 4.0 3.5-5.1 mmol/L Normal 06-13-20 [facility] ([place] (0000 0) Comment: Performed By: #### GFR, BMP, PBNP, TROP #### [place] [address] #### ANEU, ADIFF, CBC #### [address] [address] Sodium [Moles/Vol] 142 136-145 mmol/L Normal 06-13-2019 [facility] ([place] (0000 0) Comment: Performed By: #### GFR, BMP, PBNP, TROP #### [place] [address] #### ANEU, ADIFF, CBC #### [address] [address] Urea nitrogen [Mass/Vol] 10 7-18 mg/dL Normal 06-13 [facility] ([place] (0000 0) Comment: Performed By: #### GFR, BMP, PBNP, TROP #### [place] [address] #### ANEU, ADIFF, CBC #### [address] [address] Urea nitrogen/Creatinine [Mass 7 7-27 ratio Normal 06-13-2019 [facility]] [facility] ([place] (06614) Comment: Performed By: #### GFR, BMP, PBNP, TROP #### [address] [address] #### ANEU, ADIFF, CBC #### [address] [address] .neuabs on Neutrophils (Bld) 8.40 2.85-6.16 10 3/mcL High 06-13-2019 A [facility] [#/Vol] [facility] ([place]) (19634) Comment: Performed By: #### GFR, BMP, PBNP, TROP #### [place] [id number] #### ANEU, ADIFF, CBC #### [address] [address] .gfr on 2019-06-13 GFR 45 ml/min/1.73sqm Normal 05-20 [facility] ([place] (0000 0) Comment: Result Comment: GFR Population mean for Afri can Marshallese, Non- Americans Ages 20-29 = 116 mL/min/1.73 [...] By: #### GFR, BMP, PBNP, TROP #### [address] [address] #### ANEU, ADIFF, CBC #### [address] [address] GFR Non- 37 ml/min/1.73sqm Normal 06-13-2019 [facility] ([place] (72960) Comment: Result Comment: GFR Population mean for Afri can Marshallese, Non- Americans Ages 20-29 = 116 mL/min/1.73 [...] By: #### GFR, BMP, PBNP, TROP #### [place] [address] #### ANEU, ADIFF, CBC #### [address] [address] .auto diff on 06-13 Ammonia (P) [Mass/Vol] 0.90 0.15-1.00 10 3/mcL Normal [address] [place] [address] ([place]) ([id number]) Comment: Performed By: #### GFR, BMP, PBNP, TROP #### [place] [address] #### ANEU, ADIFF, CBC #### [address] [address] Basophils (Bld) 0.10 0.00-0.19 10 3/mcL Normal 06-13-2019 [facility] [#/Vol] [facility] ([place] (13509) Comment: Performed By: #### GFR, BMP, PBNP, TROP #### [place] [address] #### ANEU, ADIFF, CBC #### [address] [address] Basophils/100 WBC (Bld) 0.5 0.0-2.5 % Normal 2018 [facility] ([place] (0000 0) Comment: Performed By: #### GFR, BMP, PBNP, TROP #### [place] [address] #### ANEU, ADIFF, CBC #### [address] [address] Eosinophils (Bld) 0.30 0.00-0.40 10 3/mcL Normal 06-13-2019 A [facility] [#/Vol] [facility] ([place]) (55867) Comment: Performed By: #### GFR, BMP, PBNP, TROP #### [place] [address] #### ANEU, ADIFF, CBC #### [address] [address] Eosinophils/100 WBC (Bld) 2.3 0.0-7.0 % Normal 05-20 [facility] ([place]) (0000 0) Comment: Performed By: #### GFR, BMP, PBNP, TROP #### [place] [address] #### ANEU, ADIFF, CBC #### [address] [address] Lymphocytes (Bld) 2.10 0.77-3.85 10 3/mcL Normal 06-13-2019 A [facility] [#/Vol] [facility] ([place]) (39928) Comment: Performed By: #### GFR, BMP, PBNP, TROP #### [place] [address] #### ANEU, ADIFF, CBC #### [address] [address] Lymphocytes/100 WBC (Bld) 17.9 10.0-50.0 % Normal 05-20 [facility] ([place]) (84332) Comment: Performed By: #### GFR, BMP, PBNP, TROP #### [place] [address] #### ANEU, ADIFF, CBC #### [address] [address] Monocytes/100 WBC (Bld) 7.4 1.7-13.0 % Normal 2018 [facility] ([place]) (0000 0) Comment: Performed By: #### GFR, BMP, PBNP, TROP #### [address] [address] #### ANEU, ADIFF, CBC #### [facility] [address] [place], [place] [address] Neutrophils/100 WBC (Bld) 71.9 37.0-80.0 % Normal 05-20 [facility] ([place] (51529) Comment: Performed By: #### GFR, BMP, PBNP, TROP #### [address] [address] #### ANEU, ADIFF, CBC #### [facility] [address] [place], [place] [address] xr chest 2 views on 2019-06-12 XR CHEST 2 VIEWS ORIGINAL Normal 06-12-2019 [facility] Chest PA and lateral 06/12/2019 9:43 AM [facility] ([place] ([id number]) History: Chest Pain The heart and pulmonary [...] on 2019-06-12 Color (U) Yellow Normal 06-12-2019 [facility] ([place]) ([id number]) Comment: Performed By: #### UAMICAO, UA #### [address] [address] Glucose (U) [Mass/Vol] Negative Negative mg/dL Normal 019 [facility] ([place]) (34936) Comment: Performed By: #### UAMICAO, UA #### [address] [address] Ketones Ql (U) Negative Negative Normal 06-12-2019 [facility] ([place]) (23179) Comment: Performed By: #### UAMICAO, UA #### [address] [address] UA Appear Cloudy Clear Abnormal 06-12-2019 [facility] ([place]) ([id number]) Comment: Performed By: #### UAMICAO, UA #### [address] [address] UA Blood Small Negative Abnormal 06-12-2019 [facility] ([place]) (24747) Comment: Performed By: #### UAMICAO, UA #### [address] [address] UA Leuk Est Moderate Negative Abnormal 06-12-2019 [facility] ([place] (93002) Comment: Performed By: #### UAMICAO, UA #### [address] [address] UA Nitrite Positive Negative Abnormal 06-12-2019 [facility] ([place] (90999) Comment: Performed By: #### UAMICAO, UA #### [place] [address] UA pH 7.0 5.0 - 8.0 Normal 06-12-2019 [facility] ([place]) (32603) Comment: Performed By: #### UAMICAO, UA #### [place] [address] UA Protein 30 Negative mg/dL Normal 06-12-2019 [facility] ([place] (24968) Comment: Performed By: #### UAMICAO, UA #### [address] [address] UA Spec Grav 1.015 1.015-1.025 Normal 06-12-2019 [facility] ([place]) ([id number]) Comment: Performed By: #### UAMICAO, UA #### [address] [address] UA Specimen Type Clean Catch Normal 06-12-2019 [facility] ([place] (87715) Comment: Performed By: #### UAMICAO, UA #### [address] [address] UA Urobilinogen 0.2 0.2-1.0 E.U./dL Normal 06-12-2019 [facility] ([place]) (63831) Comment: Performed By: #### UAMICAO, UA #### [address] [address] Urobilinogen Qn (U) Negative Negative Normal 06-12-2019 [facility] ([place]) (0000 0) Comment: Performed By: #### UAMICAO, UA #### [address] [address] trop on 2019-06-12 Troponin I.cardiac <0.020 0.000-0.040 ng/mL Normal 9 [facility] [Mass/Vol] [facility] [facility] ([place]) ([address]93) Comment: Result Comment: Troponin I r eference range: 0.00-0.040 ng/mL Negative an d non-diagnostic. >0.040 ng/mL Consistent with cardiac damage, increased clinical risk and possibility of myocardial in farction. Serial measurements, a rise & fall in test results, clinical histo ry, appropriate symptoms and/or ECG changes may help assess possibility of PA. *Other non-acute coronary sy ndrome conditions such as CHF, myoc arditis, pulmonary emboli, sepsis and cardiac surgery could result in myoc ardial damage and increased troponi n levels. Performed By: #### GFR, BMP, PBNP, TROP #### [place] [address] #### ANEU, ADIFF, CBC #### [address] [address] pbnp on 2019-06-12 Natriuretic peptide B (Bld) 940 0-125 pg/mL High [facility] [Mass/Vol] ([place]) (000 00) Comment: Result Comment: NT-proBNP re sults of less than 300 pg/mL effectively rules out acute congestive h eart failure with 99% negative predictive value. Performed By: #### GFR, BMP, PBNP, TROP #### [place] [address] #### ANEU, ADIFF, CBC #### [address] [address] cbc on 2019-06-12 Erythrocyte distribution 14.8 11.5-14.5 % High 06-12 [facility], [facility]–1983 width (RBC) [Ratio] ([place]) ([id number]) Comment: Performed By: #### GFR, BMP, PBNP, TROP #### [place] [address] #### ANEU, ADIFF, CBC #### [address] [address] Hematocrit (Bld) [Volume 37.7 37.0-47.0 % Normal 06-12 [facility], [facility] fraction] ([place]) (0000 0) Comment: Performed By: #### GFR, BMP, PBNP, TROP #### [place] [address] #### ANEU, ADIFF, CBC #### [address] [address] Hemoglobin (Bld) 12.5 12.0-16.0 G/dL Normal 06-12-2019 [facility] [Mass/Vol] [facility] ([place]) (28242) Comment: Performed By: #### GFR, BMP, PBNP, TROP #### [place] [address] #### ANEU, ADIFF, CBC #### [address] [address] MCH (RBC) [Entitic mass] 27.8 27.0-31.2 pg Normal 06-12 [facility] ([place]) (0000 0) Comment: Performed By: #### GFR, BMP, PBNP, TROP #### [place] [address] #### ANEU, ADIFF, CBC #### [address] [address] MCHC (RBC) [Mass/Vol] 33.2 33.0-37.0 G/dL Normal 06-12-20 [facility] ([place]) (0000 0) Comment: Performed By: #### GFR, BMP, PBNP, TROP #### [place] [address] #### ANEU, ADIFF, CBC #### [address] [address] MCV (RBC) [Entitic vol] 83.8 80.0-94.0 fL Normal 2018 [facility] ([place]) (0000 0) Comment: Performed By: #### GFR, BMP, PBNP, TROP #### [place] [address] #### ANEU, ADIFF, CBC #### [address] [address] Platelet mean volume 8.1 7.4-10.4 fL Normal 9 [facility] (Bld) [Entitic vol] ([place]) ([id number]) Comment: Performed By: #### GFR, BMP, PBNP, TROP #### [place] [address] #### ANEU, ADIFF, CBC #### [address] [address] Platelets (Bld) [#/Vol] 242 130-400 10 3/mcL Normal 2018 [facility] ([place]) ([id number]) Comment: Performed By: #### GFR, BMP, PBNP, TROP #### [place] [address] #### ANEU, ADIFF, CBC #### [address] [address] RBC (Bld) [#/Vol] 4.50 4.20-5.40 10 6/mcL Normal 06-12-2019 A [facility] ([place]) (0000 0) Comment: Performed By: #### GFR, BMP, PBNP, TROP #### [place] [address] #### ANEU, ADIFF, CBC #### [address] [address] WBC (Bld) [#/Vol] 10.00 4.60-10.80 10 3/mcL Normal 06-12-2019 [facility] ([place]) (04440) Comment: Performed By: #### GFR, BMP, PBNP, TROP #### [address] [address] #### ANEU, ADIFF, CBC #### [address] [address] bmp on 2019-06-12 Calcium [Mass/Vol] 8.2 8.4-10.2 mg/dL Low 06-12-2019 [facility] ([place] (56032) Comment: Order Comment: Hemolyzed - P lease redraw Performed By: #### GFR, BMP, PBNP, TROP #### [address] [address] #### ANEU, ADIFF, CBC #### [address] [address] Chloride [Moles/Vol] 101 98-107 mmol/L Normal [facility] ([place] (0000 0) Comment: Order Comment: Hemolyzed - P lease redraw Performed By: #### GFR, BMP, PBNP, TROP #### [address] [address] #### ANEU, ADIFF, CBC #### [address] [address] CO2 [Moles/Vol] 30 23-31 mmol/L Normal 06-12-2019 [facility] ([place]) (53912) Comment: Order Comment: Hemolyzed - P lease redraw Performed By: #### GFR, BMP, PBNP, TROP #### [address] [address] #### ANEU, ADIFF, CBC #### [address] [address] Creatinine [Mass/Vol] 1.07 0.55-1.02 mg/dL High 06-12-20 19 [facility] ([place] (0000 0) Comment: Order Comment: Hemolyzed - P lease redraw Performed By: #### GFR, BMP, PBNP, TROP #### [place] [address] #### ANEU, ADIFF, CBC #### [address] [address] Electrolyte Balance 9.0 mEq/L Normal 06-12-2019 [facility] ([place] (23055) Comment: Order Comment: Hemolyzed - P lease redraw Performed By: #### GFR, BMP, PBNP, TROP #### [place] [address] #### ANEU, ADIFF, CBC #### [address] [address] Glucose [Mass/Vol] 232 80-115 mg/dL High 06-12-2019 [facility] ([place] (10886) Comment: Order Comment: Hemolyzed - P lease redraw Performed By: #### GFR, BMP, PBNP, TROP #### [place] [address] #### ANEU, ADIFF, CBC #### [address] [address] Potassium [Moles/Vol] 3.8 3.5-5.1 mmol/L Normal 06-12-20 [facility] ([place] (0000 0) Comment: Order Comment: Hemolyzed - P lease redraw Performed By: #### GFR, BMP, PBNP, TROP #### [place] [address] #### ANEU, ADIFF, CBC #### [address] [address] Sodium [Moles/Vol] 140 136-145 mmol/L Normal 06-12-2019 [facility] ([place] (0000 0) Comment: Order Comment: Hemolyzed - P lease redraw Performed By: #### GFR, BMP, PBNP, TROP #### [place] [address] #### ANEU, ADIFF, CBC #### [address] [address] Urea nitrogen [Mass/Vol] 7 7-18 mg/dL Normal 06-12 [facility] ([place] (0000 0) Comment: Order Comment: Hemolyzed - P lease redraw Performed By: #### GFR, BMP, PBNP, TROP #### [address] [address] #### ANEU, ADIFF, CBC #### [address] [address] Urea nitrogen/Creatinine [Mass 7 7-27 ratio Normal 06-12-2019 [facility]] [facility] ([place] (35898) Comment: Order Comment: Hemolyzed - P lease redraw Performed By: #### GFR, BMP, PBNP, TROP #### [place] [address] #### ANEU, ADIFF, CBC #### [address] [address] .urinalysis microscopic (ao) on 2019-06-12 RBC (U) [#/Vol] 0-5 None Seen Abnormal 06-12-2019 [facility] ([place]) (63062) Comment: Performed By: #### UAMICAO, UA #### [place] [address] UA Bacteria 4+ /hpf Abnormal 06-12-2019 [facility] ([place]) ([address]350) Comment: Performed By: #### UAMICAO, UA #### [place] [address] UA Squam Epithelial 0-5 None Seen Abnormal 06-12-2019 [facility] ([place] (0000 0) Comment: Performed By: #### UAMICAO, UA #### [address] [address] UA WBC LOADED None Seen Abnormal 06-12-2019 [facility] ([place]) (69859) Comment: Performed By: #### UAMICAO, UA #### [address] [address] .neuabs on Neutrophils (Bld) 6.30 2.85-6.16 10 3/mcL High 06-12-2019 [facility] [#/Vol] [facility] ([place]) (88855) Comment: Performed By: #### GFR, BMP, PBNP, TROP #### [place] [id number] #### ANEU, ADIFF, CBC #### [address] [address] .gfr on 2019-06-12 GFR 63 ml/min/1.73sqm Normal 05-20 [facility] ([place] (0000 0) Comment: Result Comment: GFR Population mean for Afri can Marshallese, Non- Americans Ages 20-29 = 116 mL/min/1.73 [...] By: #### GFR, BMP, PBNP, TROP #### [place] [address] #### ANEU, ADIFF, CBC #### [address] [address] GFR Non- 52 ml/min/1.73sqm Normal 06-12-2019 [facility] ([place] (42809) Comment: Result Comment: GFR Population mean for Afri can Marshallese, Non- Americans Ages 20-29 = 116 mL/min/1.73 [...] By: #### GFR, BMP, PBNP, TROP #### [place] [address] #### ANEU, ADIFF, CBC #### [address] [address] .auto diff on 06-12 Ammonia (P) [Mass/Vol] 0.70 0.15-1.00 10 3/mcL Normal 019 [facility] ([place] (23102) Comment: Performed By: #### GFR, BMP, PBNP, TROP #### [place] [address] #### ANEU, ADIFF, CBC #### [address] [address] Basophils (Bld) 0.20 0.00-0.19 10 3/mcL High 06-12-2019 [facility] [#/Vol] [facility] ([place]) (87607) Comment: Performed By: #### GFR, BMP, PBNP, TROP #### [place] [address] #### ANEU, ADIFF, CBC #### [address] [address] Basophils/100 WBC (Bld) 1.5 0.0-2.5 % Normal 2018 [facility] ([place] (0000 0) Comment: Performed By: #### GFR, BMP, PBNP, TROP #### [place] [address] #### ANEU, ADIFF, CBC #### [address] [address] Eosinophils (Bld) 0.40 0.00-0.40 10 3/mcL Normal 06-12-2019 [facility] [#/Vol] [facility] ([place] (04637) Comment: Performed By: #### GFR, BMP, PBNP, TROP #### [place] [address] #### ANEU, ADIFF, CBC #### [address] [address] Eosinophils/100 WBC (Bld) 3.5 0.0-7.0 % Normal 05-20 [facility] ([place]) (0000 0) Comment: Performed By: #### GFR, BMP, PBNP, TROP #### [place] [address] #### ANEU, ADIFF, CBC #### [address] [address] Lymphocytes (Bld) 2.50 0.77-3.85 10 3/mcL Normal 06-12-2019 [facility] [#/[facility]] [facility] ([place]) (41662) Comment: Performed By: #### GFR, BMP, PBNP, TROP #### [place] [address] #### ANEU, ADIFF, CBC #### [address] [address] Lymphocytes/100 WBC (Bld) 24.7 10.0-50.0 % Normal 05-20 [facility] ([place]) (75741) Comment: Performed By: #### GFR, BMP, PBNP, TROP #### [place] [address] #### ANEU, ADIFF, CBC #### [address] [address] Monocytes/100 WBC (Bld) 6.9 1.7-13.0 % Normal 2018 [facility] ([place]) (0000 0) Comment: Performed By: #### GFR, BMP, PBNP, TROP #### [place] [address] #### ANEU, ADIFF, CBC #### [address] [address] Neutrophils/100 WBC (Bld) 63.4 37.0-80.0 % Normal 05-20 [facility] ([place]) (56642) Comment: Performed By: #### GFR, BMP, PBNP, TROP #### [facility] [address] [place], [place] [address] #### ANEU, ADIFF, CBC #### [place] [address] [place], [place] [address] urine w microsc on 2018-08-31 Appearance Nom (U) Cloudy CLEAR Normal 08-31-2018 [facility] (04039) Comment: Performed By: #### L600.0000 3 ####[facility] [id number] [place], [place] [address]Ja# [phone] Color Nom (U) Yellow Normal 08-31-2018 [facility] (58815) Comment: Performed By: #### L600.0000 3 ####[facility] ACGNQPTOHB6073 [place], [place] [address]Jw# [phone] Glucose mass conc (U) NEG mg/dL Normal 08-31-19 [facility] (98123) Comment: Performed By: #### L600.0000 3 ####[facility] CBCNRDUFMZ4850 [place], [place] [address]Cf# HYALINE CAST 86 0-1 /LPF High 08-31-2018 [facility] (42643) Comment: Performed By: #### L600.0000 3 ####[facility] CLERZNTJDD8274 [place], [place] [address]Jm# Mucus Ql (Urine sed) TRACE Normal 9 [facility] (35757) Comment: Performed By: #### L600.0000 3 ####[facility] WARQJFETLL2686 [place], [place] [address]Ui# [phone] Protein mass conc (U) NEGATIVE NEGATIVE mg/dL Normal 08-31-19 [facility] (00 000) Comment: Performed By: #### L600.0000 3 ####[facility] AXNDIWKRDH3778 [place], [place] [address]Kx# [phone] SQUAMOUS EPIS 1 0-5 EPI/HPF Normal 08-31-2018 [facility] (14586) Comment: Performed By: #### L600.0000 3 ####[facility] LGHWLIMXLC9801 [place], [place] [address]Tg# [phone] UA BACTERIA 4+ NONE /HPF Normal 08-31-2018 [facility] (67575) Comment: Performed By: #### L600.0000 3 ####[facility] PRKTEWULOW5416 [place], [place] [address]Ui# UA BILIRUBIN NEGATIVE Normal 08-31-2018 [facility] (98532) Comment: Performed By: #### L600.0000 3 ####[facility] TSVSVHAUAZ0705 [place], [place] [address]Qo# UA BLOOD NEGATIVE NEGATIVE Normal 08-31-2018 [facility] (83952) Comment: Performed By: #### L600.0000 3 ####[facility] XIGMSTQXIE[address] [place] [address]Tg# [phone] UA KETONE NEGATIVE Normal 08-31-2018 [facility] (88272) Comment: Performed By: #### L600.0000 3 ####[facility] PNFDLPJCHA1331 [place], [place] [address]Og# UA LK ESTERASE 500 NEGATIVE Normal 08-31-2018 [facility] (43395) Comment: Performed By: #### L600.0000 3 ####[facility] DOMOVPSJXH2749 [place], [place] [address]Vb# [phone] UA NITRITE NEGATIVE NEGATIVE Normal 08-31-2018 [facility] (46803) Comment: Performed By: #### L600.0000 3 ####[facility] FYUUGOSAGB8971 [place], [place] [address]Jy# [phone] UA PH 5.0 Normal 08-31-2018 [facility] (87566) Comment: Performed By: #### L600.0000 3 ####[facility] AQNUYKQSAD6636 [place], [place] [address]Mv# [phone] UA RBC 1 0-3 RBC/HPF Normal 08-31-2018 [facility] (17008) Comment: Performed By: #### L600.0000 3 ####[facility] DADUIBDBLT1667 [place], [place] [address]Hc# [phone] UA SPEC GRAV 1.013 1.005-1.030 Normal 08-31-2018 [facility] (34976) Comment: Performed By: #### L600.0000 3 ####[facility] AWDEBBJYOZ0415 [place], [place] [address]Pf# [phone] UA UROBILINOGEN NEG Normal 08-31-2018 [facility] (02948) Comment: Performed By: #### L600.0000 3 ####[facility] TNSHNTGMPV7499 [place], [place] [address]Wl# [phone] UA WBC 293 0-5 WBC/HPF High 08-31-2018 [facility] (16487) Comment: Performed By: #### L600.0000 3 ####[facility] LFFQDUJHZL3197 [place], [place] [address]Uo# UA YEAST MANY NONE Normal 08-31-2018 [facility] (82334) Comment: Performed By: #### L600.0000 3 ####[facility] AJPWTFJBIA5005 [place], [place] [address]Nm# WBC CLUMPS FEW Normal 08-31-2018 [facility] (76115) Comment: Performed By: #### L600.0000 3 ####[facility] YLLUIHRCNL4506 [place], [place] [address]Uq# gfr est on IF AMER 14 ML/MIN Normal 08-31-2018 [facility] (86973) Comment: Performed By: #### L500.0140 0, L500.58337, L550.02814 ####[facility] XTCEZQFLIW5881 [place], [place] [address]Oj# [phone] IF non-AFR AMER 12 ML/MIN Normal 08-31-2018 [facility] (38450) Comment: Performed By: #### L500.0140 0, L500.08338, L550.27569 ####[facility] BNIKPKPNQR1572 [place], [place] [address]Ey# [phone] crp on 2018-08-31 CRP mass conc 4.13 0.00-0.32 MG/DL High 08-31-2018 [facility] (46220) Comment: Performed By: #### L500.0140 0, L500.99875, L550.82930 ####[facility] DPEZORPDNT8037 [place], [place] [address]Cb# [phone] cmp on 2018-08-31 Albumin mass conc 2.9 3.2-5.0 GM/DL Low 08-31-2018 [facility] (76357) Comment: Performed By: #### L500.0140 0, L500.80224, L550.66691 ####[facility] IWSNFLDMNQ0205 [place], [place] [address]Dw# [phone] Albumin/Globulin mass ratio 0.9 0.8-2.0 {ratio} Normal [facility] [place] (65299) Comment: Performed By: #### L500.0140 0, L500.97465, L550.72556 ####[facility] QROSRNWVFQ7461 [place], [place] [address]Gy# [phone] ALK PHOS 179 45-117 U/L High 08-31-2018 [facility] (19886) Comment: Performed By: #### L500.0140 0, L500.22234, L550.94548 ####[facility] JMZDHURJIG7929 [place], [place] [address]Qb# [phone] ALT enzyme act/vol 78 13-61 IU/L High 08-31-2018 [facility] (19053) Comment: Result Comment: RESULTS MAY BE FALSELY DEPRESSED AFTER THE ADMINISTRATION OFSULFASALAZINE AND/OR SULFA PYRIDINE. Performed By: #### L500.0140 0, L500.73448, L550.62087 ####[facility] JQVCTIAVVN0718 [place], [place] [address]Zj# [phone] Anion gap molar conc 8 5-16 MMOL/L Normal 9 [facility] (92171) Comment: Performed By: #### L500.0140 0, L500.28421, L550.14566 ####[facility] MAKPWBPSUW1533 [place], [place] [address]Vw# [phone] BILI TOTAL 1.0 0.2-1.0 MG/DL Normal 08-31-2018 [facility] (41571) Comment: Performed By: #### L500.0140 0, L500.89440, L550.57597 ####[facility] JANXCDLPRE6611 [place], [place] [address]Sk# [phone] Calcium mass conc 8.5 8.5-10.1 MG/DL Normal 08-31-2018 [facility] (82346) Comment: Performed By: #### L500.0140 0, L500.83181, L550.77259 ####[facility] JASBYLCHXU5998 [place], [place] [address]Ig# [phone] Chloride molar conc 94 98-107 MMOL/L Low 08-31-2018 [facility] (98801) Comment: Performed By: #### L500.0140 0, L500.87496, L550.91052 ####[facility] SJOSFAPNUP8391 [place], [place] [address]Ks# [phone] CO2 molar conc 28 21-32 MMOL/L Normal 08-31-2018 [facility] (85827) Comment: Performed By: #### L500.0140 0, L500.12956, L550.88771 ####[facility] TIADITFACZ6400 [place], [place] [address]Nf# [phone] Creatinine mass conc 3.850 0.510-0.950 MG/DL High 019 [facility] (00 000) Comment: Result Comment: Patients rec eiving either N-Acetylcysteine (NAC) orMetamizole prior to venipu ncture, may have falsely depressedresults. Performed By: #### L500.0140 0, L500.70573, L550.91565 ####[facility] LJZUDQZYAT0589 [place], [place] [address]Pi# [phone] Globulin mass conc (S) 3.3 2.2-4.2 GM/DL Normal 019 [facility] (00 000) Comment: Performed By: #### L500.0140 0, L500.07202, L550.14715 ####[facility] DCDULIUJJQ0771 [place], [place] [address]Zk# [phone] Glucose mass conc 133 70-100 MG/DL High 08-31-2018 [facility] (58632) Comment: Result Comment: 70-100- Norm al Fasting; 100-125 Impaired Fasting; greaterthan 126 on more than one result- Diabetes. ADA guidelines.Results may be falsely elevated afte r the administration ofSulfapyridine.Results may be falsely depressed after t he administration ofSulfasalazine. Performed By: #### L500.0140 0, L500.39664, L550.81099 ####[facility] WLSPPRIAUF6515 [place], [place] [address]Uo# [phone] Potassium molar conc 7.0 3.5-5.1 MMOL/L Critically high [facility] [place] (59403) Comment: Result Comment: Slight Hemol ysis, Result may be falsely increased. CriticalResult(s) Called at: 18:00:05 on 08/31/2018 by: milady hinson and read back by: TAE Roger Performed By: #### L500.0140 0, L500.50967, L550.56666 ####[facility] HBJFPXLHXI7982 [place], [place] [address]Ie# [phone] Protein mass conc 6.2 6.0-8.5 GM/DL Normal 08-31-2018 [facility] (28333) Comment: Performed By: #### L500.0140 0, L500.77066, L550.69834 ####[facility] TQLMOLUSCU9529 [place], [place] [address]Gq# [phone] SGOT (AST) 102 8-34 U/L High 08-31-2018 [facility] (55110) Comment: Result Comment: Slight Hemol ysis, Result may be falsely increased.RESULTS MAY BE FALSELY DEPRESSED AFT ER THE ADMINISTRATION OFSULFASALAZINE AND/OR SULFAPYRIDINE. Performed By: #### L500.0140 0, L500.53925, L550.28398 ####[facility] ZQHSUGTKIH8532 [place], [place] [address]Xc# [phone] Sodium molar conc 129 136-145 MMOL/L Low 08-31-2018 [facility] (05681) Comment: Performed By: #### L500.0140 0, L500.93416, L550.60574 ####[facility] YLKQJVHIGA3265 [place], [place] [address]Ak# [phone] Urea nitrogen mass conc 62 7-26 MG/DL High 2018 [facility] (53959) Comment: Performed By: #### L500.0140 0, L500.30551, L550.74551 ####[facility] PGEDNGOTCA4173 [place], [place] [address]Mc# [phone] Urea nitrogen/Creatinine mass 16 15-24 mg/mg Normal 08-31-2018 [facility] ratio [place] (00 000) Comment: Performed By: #### L500.0140 0, L500.87288, L550.21504 ####[facility] YAKAGFZMSF0548 [place], [place] [address]Mx# [phone] cbc w/diff on 08-31 BASO ABS 0.10 0-0.2 K/CU MM Normal 08-31-2018 [facility] [place] (65406) Comment: Performed By: #### L200.0005 0 ####[facility] JRFFFGSTTD3606 [place], [place] [address]Xd# [phone] Basophils/100 WBC (Bld) 0.3 0-2 % Normal 2018 [facility] [place] (80459) Comment: Performed By: #### L200.0005 0 ####[facility] CYCMTPDTFW[address] [place] [address]Nu# [phone] EOS ABS 0.30 0-0.5 K/CU MM Normal 08-31-2018 [facility] [place] (31872) Comment: Performed By: #### L200.0005 0 ####[address] [address]Iv# Eosinophils/100 WBC (Bld) 1.4 0-5 % Normal 08-19 [facility] (42777) Comment: Performed By: #### L200.0005 0 ####[facility] IIMNBIOPND[address] [place] [address]Jk# [phone] Erythrocyte distribution width 16.5 11-14.5 % High 08-31-2018 [facility] Ratio (RBC) [place] ( [address]98[address]) Comment: Performed By: #### L200.0005 0 ####[facility] EYOFADXMLG[address] [place] [address]Kl# Hematocrit Volume Fraction 35.7 35.0-47.0 % Normal [facility] ([facility] [place] (00 000) Comment: Performed By: #### L200.0005 0 ####[facility] JBDYDSQKSS[address] [place] [address]Kr# Hemoglobin mass conc (Bld) 11.1 11.5-15.5 G/DL Low [facility] [place] (00 000) Comment: Performed By: #### L200.0005 0 ####[facility] FYBVIINEPX[address] [place] [address]Af# IMMATR GRAN ABS 0.10 Less than 2 K/CU MM Normal 08-31-2018 [facility] ( 000) Comment: Performed By: #### L200.0005 0 ####[address] [address]Ej# IMMATURE GRAN % 0.6 Less than 2 % Normal 08-31-2018 [facility] (88984) Comment: Performed By: #### L200.0005 0 ####[address] [address]Wt# Lymphocytes #/vol (Bld) 4.10 0.9-4.4 K/CU MM Normal 2018 [facility] (00 000) Comment: Performed By: #### L200.0005 0 ####[address] [address]Hu# [phone] Lymphocytes/100 WBC (Bld) 18.5 20-40 % Low 08-19 [facility] (98612) Comment: Performed By: #### L200.0005 0 ####[address] [address]Ao# MCHC mass conc (RBC) 31.1 32.0-36.0 GM/DL Low 9 [facility] (87588) Comment: Performed By: #### L200.0005 0 ####[address] [address]Ey# MCV Entitic volume (RBC) 83.6 80.0-99.0 fl Normal 08-31 [facility] (00 000) Comment: Performed By: #### L200.0005 0 ####[address] [address]Su# MONO ABS 2.20 0.1-1.1 K/CU MM High 08-31-2018 [facility] (90103) Comment: Performed By: #### L200.0005 0 ####[facility] IXWDPAFVRZ1322 [place], [place] [address]Ax# [phone] Monocytes/100 WBC (Bld) 9.8 2-10 % [facility] (86550[facility] Comment: Performed By: #### L200.0005 0 ####[facility] NYSYLROPYA9146 [place], [place] [address]Gb# NEUTROPHIL ABS 15.50 2.0-8.3 K/CU MM High 08-31-2018 [facility] (41407) Comment: Performed By: #### L200.0005 0 ####[facility] VZWTRXVTTF[address] [place] [address]Ak# Neutrophils/100 WBC (Bld) 69.4 45-75 % Normal 08-19 [facility] (98404) Comment: Performed By: #### L200.0005 0 ####[facility] HUJNVJJJVF[address] [place] [address]Ok# [phone] Nucleated RBC/100 WBC 0.0 Less than 1 % Normal 2018 [facility] Ratio (Bld) [place] ( [address]) Comment: Performed By: #### L200.0005 0 ####[facility] BIDPCBXVLK[address] [place] [address]Wp# Platelet mean volume 11.0 9.4-12.4 fL Normal 9 [facility] Entitic volume (Bld) [place] (79787) Comment: Performed By: #### L200.0005 0 ####[facility] FTPKYTOZQQ39[address] [place] [address]Vl# [phone] Platelets #/vol (Bld) 401 150-450 K/CU MM Normal 08-31-19 [facility] (00 000) Comment: Performed By: #### L200.0005 0 ####[facility] YGLJXGHKEB[address] [place] [address]Jt# [phone] RBC #/vol (Bld) 4.27 3.90-5.30 M/CU MM Normal 08-31-2018 [facility] (70075) Comment: Performed By: #### L200.0005 0 ####[facility] UOAMQATVRK7554 [place], [place] [address]Bb# WBC #/vol (Bld) 22.3 4.5-11.0 K/CUMM High 08-31-2018 [facility] (09192) Comment: Performed By: #### L200.0005 0 ####[facility] DYGFHSZFNF7111 [place], [place] [address]Wy# [phone] progress on 2018-07 Protein HNO ID: [id number]: Ayana ([facility]) ShannonService: Normal 07-23-2018 [facility] (none)Author Type: Nurse PractitionerType: Progress Clinic conc NotesFiled: 07/23/2018 1:20 PMNote Text:Crystal Cramer is a 62 year old female. Patient presents ([address]) with:New PatientPMH: DM, Fibromyalgia, HTN, HyperlipidemiaCrystal is [...] FIRST FOR MY DOCUMENTATION TO PROVIDE CARE, HELPINSUGeneral [employer] AND COLLEAGUES TO HAVE NEUROLOGICAL CONTEXT OF [...] BPMetformin Other: See Comments Not Specified Side Effect/Oormjltqqhm75/10/2017 Past Updates...MigrainesPAST MEDICAL HISTORY:ACTIVE PROBLEM LISTTuberculosis of Lung, Nodular, Confirmation UnspecifiedDiarrheaNausea AND VomitingPAST SURGICAL HISTORYProcedure Laterality Date- APPENDECTOMY 1973[facility]- COLONOSCOPY W/BX 05/27/07- [...] motor and sensory exam is symmetricEqual v1,V2, H0Xdkymo is in midline. No tongue fasciculation.Palate is upgoing bilaterallySCM and trapezius are full.Shoulder shrug intact?Motor Exam:?Upper extremity motor exam is 5/5 in deltoid, 5/5 triceps 5/5biceps, 5/5wrist extension, and 5/5 hand pediatric urologist. Finger extensor 5/5. Finger flexor5/5. Pronation and [...] Babinski). No clonus of ankles.?Coordination:Finger-to- nose-finger and xnkj-mo-eefw intact bilaterally. No ataxia ofarms. No limb [...] visit, with more than 50% of the augfwshqn-ta-nqxg time of the visit in counseling / coordination of care.ACTIVE PROBLEM LISTTuberculosis of Lung, Nodular, Confirmation UnspecifiedDiarrheaNausea AND VomitingNo orders found for this visit on 07/23/18.Ayana Jamison MSN, SOLAR FABRICATION TECHNICIAN, LIBRARIAN HEAD-C1. This office note has been dictated and [...] 07-23-2018 Shauna and (NEN) --------BELACRYSTAL Tricia Arriola ([id number]) 1955 FDat e Time Provider Whkrabopnj15/5/18 12:45 PM AYANA JAMISON (JOSEP) ANGELINA Fiore During your visit today, we recorded the following information about you: Pulse Respiration Blood (74888) pressure Weight 69/minute 18 /minute 104/46 129.3 [...] APPENDECTOMY 1973- COLONOSCOP W/ OR W/O [facility] SPEC 06/19/2013 Colonoscopy- COLONOSCOPY W/B X [...] motor and sensory exam is symmetricEqual v1,V2, O1Bpiymp is in midline. No tongue fascic ulation.Palate is upgoing bilaterallySCM and trapezius are full.Shoulder shrug intact?Motor Exam:?Upp er extremity motor exam is 5/5 in deltoid, 5/5 triceps 5/5biceps, 5/5 wristextension, and 5/5 hand pediatric urologist. Finger extensor 5/5. Finger flexor 5/5.Pronation and [...] Babinski). No clonus of ankles.?Coordination:Finger-to- nose-finger and link-kj-iaoz intact bilatera lly. No ataxia of arms.No [...] of d iabetes. In review of her Q8Xczfxlw, she has been diabetic for some time [...] m ore than 50% of the total urol-lm-uvgjcnze of the visit in counseling / coordination of care.ACTIVE PROBLEM LISTTuberculosis of Lung, Nodular, Confirmation UnspecifiedDiarrheaNausea AN D VomitingNo orders found for this visit on 07/23/18.Ayana Jamison MSN, SOLAR FABRICATION TECHNICIAN, LIBRARIAN HEAD-C1. This office no te has been dictated [...] MONTELUKAST 10 MG TABLET >> Ayana Jamison APRN.DISABILITY HEARING OFFICER 07/23/2018 12:17 PM >> AYANA JAMISON Wed [...] 05/23/2018 Disc: Discontinued by PatientEncounter Number: [id number] Status:Closed by AYANA JAMISON on 07/23/18 progress on 2018-05 Protein mass HNO ID: [id number]: Carlyn arriola 05-23-2018 [facility] conc (Laundry Supervisor) FulkService: (none)Author Adebayo Type: Nurse PractitionerType: ([id number]) Progress NotesFiled: 05/23/2018 12:48 PMNote Text:HPI Crystal [...] [facility], recommend patient be seen at nearest ED,refused Squad friend present will transport, report called to JOSEP Parra on 2018-05-23 CNCHRISTIE Office Visit Normal 05-23-2018 [place] and ([facility]) --------BELACRYSTAL Tricia Arriola ([id number]) 1955 FDat e Time Provider Blhjjgcxfe63/5/18 12:15 PM [facility] During [place] your visit today, we [...] friendpresent will transport , report called to [place] [facility].Carlyn Wu, CNPReferring Provider: SELF [[id number]]Allergies As of Date: 05/23/2018 Noted Allergy Reaction BACTRIM (SULFAMETHOXAZOLE-TRIMETH* 4 - HivesTORADOL (KETOROLAC) 03/22/2006 14 - Other: See Comments Comments: Increase BPCIPROFL OXACIN 06/10/2013 2 - RashFLEXERIL (CYCLOBENZAPRINE) 06/10/2013 2 - RashMETFORMIN 06/28/2017 14 - Other: See Comments Comments: MigrainesDate Reviewed: 05/23/2018Reviewed by: Carole NguyenWvu Medicine Union[facility]) KENROY Henriquez - Fully AssessedReason for Visit: Fall [218] Cmt: pain in left side ribs, fell yesterday into [employer] counter, trouble breathing todayPrimary Visit Diagnosis:Borderline low [...] AND vomiting [R11.2] INVALID FOR*Encounte r Number: [id number] Status:Closed by CARLYN WU CNP on 05/23/18 nino creatinine on 2017-12-31 Creatinine mass conc 1.2 0.7-1.4 mg/dL Normal 8 [facility] ([address]161) progress on 2017-12 Protein mass HNO ID: [id number]: Carole Kumar rmal 12-31-2017 [facility] Hieu Bashir CtService: (none)Author Clinic Type: (none)Type: Progress [place] NotesFiled: 12/31/2017 12:48 PMNote ([id number]) Text: Radiology Service Progress NotePATIENT NAME: Crystal OrtizsMRN: [id number] OF SERVICE: December 31, 2017TIME: 12:48 PMPATIENT IDENTITY VERIFICATION COMPLETED USING TWO (2) METHODS: Patientconfirmed name verbally and Date of .PATIENT GENDER DATA: Female. status: : NoBreastfeeding status: NO.PATIENT RELEVANT IMPLANT DATA REVIEWED: YesCONTRAST INDUCED NEPHROPATHY RISK FACTORS: Patient age > 60 yearsCREATININE:CreatinineDate Value Ref Range Qiwlbo0504/28/2015 0.87 0.51 - 0.95 mg/dL Final04/27/2015 0.86 [...] Report* * *DATE OF Norm al 12-31-2017 [place] RAMO EXAM: Dec 31 2017 9:51AM [facility] 0582 - [facility] SCREENING W RAMO / [place] ([id number]) REASON: Other disorders of nervous system * * * * Physician Interpretation * * * *RESULT: #[id number] - KARTIK SCREENING W TOMOBILATERAL DIGITAL SCREENING MAMMOGRAM TOMOSYNTHESIS WITH CAD: 12/31/2017HISTORY: Other Disorders Of Nervous System\ Screening Mammogram - patient reports NO breast symptoms /Patient has signed release for outside images\[facility].RESULT:TECHNIQUE: The study was acquired using full field [...] physician.Maral Kennedy M.D.jr,as/penrad:12/31/2017 14:00:45Imaging Technologist: Janneth BLACKMAN)(Sally), [facility] Specialty Centerletter sent: Normal over 40Mammogram BI-RADS: 1 NegativeTranscriptionist: MaylinTranscribe Date/Time: Dec 31 2017 9:52ADictated by: FABBY KENNEDY MDThis examination was interpreted and the report reviewed and electronically signed by: MARAL HALLMAN MD on Dec 31 2017 2:00PM [id number] ct chest w ivcon on 2017-12-31 CT CHEST W * * *Final Report* * *DATE OF EXAM: Catrachita landry 12-31-2017 [facility] IVCON Dec 31 2017 12:22PM [facility] 0539 - CT [place] CHEST W IVCON / [id number] REASON: Other disorders of nervous system * [...] represent herniated intra-abdominal fat or a lipomatous lesion.Sprayer Operator: ABRAM Transcribe Date/Time: Dec 31 2017 2:47PDictated by : VERONICA IBARRA MDThis examination was interpreted and the report reviewed and electronically signed by: VERONICA IBARRA MD on Dec 31 2017 3:07PM [id number] ct abd/pel w ivcon on 2017-12-31 CT ABD/PEL * * *Final Report* * *DATE OF EXAM: December12-31-2017 [facility] IVCON 2017 12:22PM [facility] 0530 - CT ABD/PEL W [facility] IVCON / [place] REASON: Other disorders of nervous (25345) system * * * * Physician Interpretation [...] may be contributing to the patient's symptoms. Sprayer Operator: ABRAM Transcribe Date/Time: Dec 31 2017 1:21PDictated by : PELON GARRETT MDThis examination was interpreted and the report reviewed and electronically signed by: PELON GARRETT MD on Dec 31 2017 1:32PM [id number] cnco on 2017-12-31 CNCO HNO ID: [id number]: Normal 12-17 [facility] Mammography CoordinatorService: [place] ([address]) (none)Author Type: PhysicianType: LetterFiled: 01/01/2018 11:32 PMNote Text:December 31, 2017 PID: [id number] [address] [place], [place] [address]Hdae Ms. Cramer,We are pleased to inform you that the results of your recent breastimaging exam on 12/31/2017 are normal. Early detection of cancer is veryimportant. We also understand recommendations regarding breast cancerscreening are controversial. Please discuss with your primary careprovider which strategy is best for you and whether a mammogram is rightfor you.Your imaging studies and report will be [facility] on [facility] at [facility] part of your permanent medical record and are available for yourcontinuing care.Thank you for allowing us to help in meeting your health care needs.Sincerely,Dr. HallmanInterprejania RadiologistWooster Specialty Center (Normal over 40) progress on 2017-12 Protein mass HNO ID: [id number]: Mukul payne 12-18-2017 [place] conc ClineService: (none)Author Type: Clinic PhysicianType: Progress NotesFiled: [place] 12/18/2017 10:45 AMNote Text:FOLLOW UP (63271) VISITCHIEF COMPLAINTPatient presents with:Established Patient: nausea, constipationMs. [...] Normal 12-18-2017 [place] and (GASTMN) --------CRYSTAL CRAMER ([id number]) 1955 FDat e Time Provider Department12/18/17 10:10 AM MUKUL STEVEN During Clev eland your visit today, we recorde d the following information about you: Temperature Pulse Blood pressure (83128) Weight 98.3 degrees 79/minut e 139/69 120.8 [...] W IVCONMukul Steven 12/18/2017Referring Provider: YOU PARKS [[id number]]Allergies As of Date: 12/18/2017 Noted Allergy ReactionBACTRIM [...] synd danica [G98.8]Order(s):CREATININE BLD [SQCRET] Order #: [id number] FUTURE KARTIK SCREENING [3722253] Orde r #: [id number] FUTURE CT ABD/PEL W IVCON [[id number]] Order #: [id number] FUTURE CT CHEST W IVCON [127 0700] Order #: [id number] FUTURE iv contrast (radiology procedure)CT Chest ABD/PEL-Inject, [...] nursing protocol in the CT contrast administration [facility].Disp: 1 EachRfl: 0 enteric contrast (radiology procedure)For [...] as designated per enteric contrast guidelinesEncounter Number: [id number] Status:Closed by MUKUL STEVEN DO on 12/18/17 progress on 2017-10 Protein mass HNO ID: [id number]: Cele (Rn) Normal 10-22-2017 [place] leno Vargas, RNService: (none)Author Type: Clinic Registered NurseType: Progress [place] NotesFiled: 10/22/2017 2:24 PMNote ([id number]) Text:SmartPill Test Report - [id number] Test start date: 10/11/2017 9:48 AM Interpretation date: 10/22/2017 Ordering physician: Radha Aaron Information Name: Crystal Cramer ID: [id number] date: 1955 Height ft. in.: 5' 6 [...] Normal 10-22-2017 [place] (GASTMN) --------CRYSTAL CRAMER ([id number]) [address] [facility] e Time Provider Department10/22/17 CELE VARGAS (RN) GASTMN During your [facility] visit today, we recorded the following information about you:Cele Vargas RN, RN 10/22/2017 2:24 PM (16619) SignedBlanchard [facility] Test Report - [id number] Test start date: 10/11/2017 9:48 AM Interpretation date: 8 Ordering physician: Radha Aaron Information Name: Crystal Cramer ID: [id number] [facility] h date: 1955 Height ft. in.: [...] FOR*Follow-up and Disposition History RecordedEncounter Bushra mber: [id number] Status:Closed by CELE VARGAS on 10/22/17 cnpn on 2017-10-22 [facility] [facility] [employer] Tele[facility] Normal 10-22-2017 Adebayo (JOSE CARLOS) --------CRYSTAL CRAMER ([id number]) 1955 FDat e Time Provider Department10/22/17 MUKUL STEVENMD During your visit Juwan monzon today, we recorded the aldo gooden information about you:Manuel Meza, RN, RN 10/22/2017 5:10 PM (01540) SignedPatient is calling Dr. Steven's office to [...] Explained that appeal letter was faxed to [facility] regarding he r IVIG therapy. Offered to [...] By: Manuel Meza RN In Department: [facility] PHANMerit Health Rankinpradeep As of Date: 10/22/2017 Noted Allergy ReactionBACTRIM [...] on 2017-09 Protein mass conc HNO ID: [id number]: Normal 10-11-2017 [facility] Cele (Rn) Azael Vargas ([id number]) RNService: (none)Author Type: Registered NurseType: Progress NotesFiled: 10/11/2017 10:14 AMNote Text:Referring MD: ?Teodoro Aaron: ?gastroparesisDate of SmartPill Procedure: ?10/11/2017 ?SmartPill ingested withoutdifficulty at 10:00am. ?Discharge instructions completed and given topatient.Return of Equipment: ?Micah Vargas RN Capsule Endoscopy Nurse cnpn on 2017-10-08 CNPN Telephone Normal 10-08-2017 [place] (GASTMN) --------CRYSTAL CRAMER [facility] ([id number]) 1955 FDat e Time Provider Department10/08/17 MUKUL STEVEN GASTMD During your [place] visit today, we recorded the following information about you:Manuel Meza RN, RN 10/08/2017 4:16 PM (00 000) SignedContacted [employer] [phone] (option 1 and then option 0) to obtain acopy of patient's denial letter for IVIG. They are to fax to the office today.Manuel Meza, RN, RN 10/08/2017 5:19 PM SignedReceived copy of deng arriola letter from [employer] 10/08/17 and [facility].Allergies As of Date: 10/08/2017 Noted Allergy Reacti onBACTRIM (SULFAMETHOXAZOLE-TRIMETH* 4 - HivesCIPROFLOXACIN 06/10/2013 16 - UnknownFLEXERIL (CYCLOBENZAPRINE) 06/10/2013 16 - UnknownMETFORMIN 06/28/2017 14 - Other: See Comments Comments: MigrainesTORADOL (KETOROLAC) 03/22/2006band aids [Other] 05/27/2007Date Reviewed: 07/31/2017Reviewed by: Mukul Steven - Fully AssessedReason for Visit: Care Coordination [0467] Cmt: Gastroparesis Clinic: Ivig denial letter r [...] cnpn on 2017-09-12 CNPN Telephone Normal 09-12-2017 [place] (GASTMN) --------CRYSTAL CRAMER ([id number]) 1955 [facility] Department09/12/17 MUKUL STEVEN [facility] During your [place] visit today, we recorded the following information [...] Thyrotropin Qn 2.260 0.400-5.500 uU/mL Normal 07-31-2017 [facility] (27353) Comment: Performed By: #### CK, FT4, TSH, LD6, HBA1C, LACPYR, AAQTPL, GADCAB, CARNPL, PLTHY ####[facility] L [address] [place], [place] [phone]#### CASRFX , LG1RFX, PARNEO #### [facility] [address] [place], [place] [phone] progress on 2017-07 Protein mass HNO ID: [id number]: Manuel landry 07-31-2017 [facility] (Rn) LAURIE Mezaervice: Clinic (none)Author Type: Registered [place] NurseType: Progress NotesFiled: ([id number]) 07/31/2017 10:55 AMNote Text:Met with patient for [...] RN In Department:GASTROENTEROLOGY Protein mass HNO ID: [id number]: Rayne stone 07-31-2017 [place] leno GuilloryService: Clinic (none)Author Type: Azael morrison PsychologistType: Progress (76197) NotesFiled: 07/31/2017 10:40 AMNote Text:Behavioral MedicineDigestive Disease and Surgery InstituteName: Crystal Mallory#: [id number]: 07/31/17Time: [address]Ref[address]: Dr. Cruz for [...] Plasma Thymidine Det View results in Normal [facility] Scanned Documents link [place] (76233) when available. Comment: Performed By: #### CK, FT4, TSH, LD6, HBA1C, LACPYR, AAQTPL, GADCAB, CARNPL, PLTHY ####[facility] L [address] [place], [place] [phone]#### CASRFX , LG1RFX, PARNEO #### [facility] [address] [place], [place] [phone] paraneoplast autoabs on 2017-07-31 ACh Receptor Bind Ab 0.00 <=0.02 nmol/L Normal 7 [facility] (18705) Comment: Result Comment: (NOTE)------ ADDITIONAL INFORMATION --This test was developed and its performance characteristicsdetermined by [facility] in a manner consistent with CLIArequirements. This test has not been cleared or approved bythe U.S. Food and Drug Administration. Performed By: #### CK, FT4, TSH, LD6, HBA1C, LACPYR, AAQTPL, GADCAB, CARNPL, PLTHY ####[facility] [place], [place] [phone]#### CASRFX , LG1RFX, PARNEO #### [address] [phone] AChR Ganglionic Neur 0.00 <=0.02 nmol/L Normal 7 [facility] (70394) Comment: Result Comment: (NOTE)------ ADDITIONAL INFORMATION --This test was developed and its performance characteristicsdetermined by [facility] in a manner consistent with CLIArequirements. This test has not been cleared or approved bythe U.S. Food and Drug Administration. Performed By: #### CK, FT4, TSH, LD6, HBA1C, LACPYR, AAQTPL, GADCAB, CARNPL, PLTHY ####[facility] [place], [place] [phone]#### CASRFX , LG1RFX, PARNEO #### [facility] [place], [place] [phone] Amphiphysin Ab, S Negative <1:240 Normal 07-31-2017 [facility] (13320) Comment: Result Comment: (NOTE)------ ADDITIONAL INFORMATION --This test was developed and its performance characteristicsdetermined by [facility] in a manner consistent with CLIArequirements. This test has not been cleared or approved bythe U.S. Food and Drug Administration. Performed By: #### CK, FT4, TSH, LD6, HBA1C, LACPYR, AAQTPL, GADCAB, CARNPL, PLTHY ####[facility] [address] [place], [place] [phone]#### CASRFX , LG1RFX, PARNEO #### [address] [phone] ERINN 1, S Negative <1:240 Normal 07-31-2017 [facility] (35595) Comment: Performed By: #### CK, FT4, TSH, LD6, HBA1C, LACPYR, AAQTPL, GADCAB, CARNPL, PLTHY ####[facility] [address] [place], [place] [phone]#### CASRFX , LG1RFX, PARNEO #### [address] [phone] ERINN 2, S Negative <1:240 Normal 07-31-2017 [facility] (48107) Comment: Result Comment: (NOTE)------ ADDITIONAL INFORMATION --This test was developed and its performance characteristicsdetermined by [facility] in a manner consistent with CLIArequirements. This test has not been cleared or approved bythe U.S. Food and Drug Administration. Performed By: #### CK, FT4, TSH, LD6, HBA1C, LACPYR, AAQTPL, GADCAB, CARNPL, PLTHY ####[facility] [place], [place] [phone]#### CASRFX , LG1RFX, PARNEO #### [facility] [place], [place] [phone] ERINN 3, S Negative <1:240 Normal 07-31-2017 [facility] (77757) Comment: Result Comment: (NOTE)------ ADDITIONAL INFORMATION --This test was developed and its performance characteristicsdetermined by [facility] in a manner consistent with CLIArequirements. This test has not been cleared or approved bythe U.S. Food and Drug Administration. Performed By: #### CK, FT4, TSH, LD6, HBA1C, LACPYR, AAQTPL, GADCAB, CARNPL, PLTHY ####[place] [address] [place], [place] [phone]#### CASRFX , LG1RFX, PARNEO #### [address] [phone] Anti-glial Nuc Ab 1 Negative <1:240 Normal 07-31-2017 [facility] (93979) Comment: Result Comment: (NOTE)------ ADDITIONAL INFORMATION --This test was developed and its performance characteristicsdetermined by [facility] in a manner consistent with CLIArequirements. This test has not been cleared or approved bythe U.S. Food and Drug Administration. Performed By: #### CK, FT4, TSH, LD6, HBA1C, LACPYR, AAQTPL, GADCAB, CARNPL, PLTHY ####[facility] [place], [place] [phone]#### CASRFX , LG1RFX, PARNEO #### [facility] [place], [place] [phone] Ca Ch Bind Ab,N Type 0.00 <=0.03 nmol/L Normal [facility] (88416) Comment: Result Comment: (NOTE)------ ADDITIONAL INFORMATION --This test was developed and its performance characteristicsdetermined by [facility] in a manner consistent with CLIArequirements. This test has not been cleared or approved bythe U.S. Food and Drug Administration. Performed By: #### CK, FT4, TSH, LD6, HBA1C, LACPYR, AAQTPL, GADCAB, CARNPL, PLTHY ####[facility] [place], [place] [phone]#### CASRFX , LG1RFX, PARNEO #### [address] [phone] Ca Chn Bind Ab, P/Q 0.00 <=0.02 nmol/L Normal 07-31-2017 [facility] (36731) Comment: Result Comment: (NOTE)------ ADDITIONAL INFORMATION --This test was developed and its performance characteristicsdetermined by [facility] in a manner consistent with CLIArequirements. This test has not been cleared or approved bythe U.S. Food and Drug Administration. Performed By: #### CK, FT4, TSH, LD6, HBA1C, LACPYR, AAQTPL, GADCAB, CARNPL, PLTHY ####[facility] [place], [place] [phone]#### CASRFX , LG1RFX, PARNEO #### [facility] [place], [place] [phone] CRMP 5 IgG, S Negative <1:240 Normal 07-31-2017 [facility] (70161) Comment: Result Comment: (NOTE)------ ADDITIONAL INFORMATION --This test was developed and its performance characteristicsdetermined by [facility] in a manner consistent with CLHonorHealth Scottsd[facility] Shea Medical Centerequirelovering colony [facility]. This test has not been cleared or approved bythe U.S. Food and Drug Administration. Performed By: #### CK, FT4, TSH, LD6, HBA1C, LACPYR, AAQTPL, GADCAB, CARNPL, PLTHY ####[facility] L [address] [place], [place] [phone]#### CASRFX , LG1RFX, PARNEO #### [facility] [place], [place] [phone] Interpretive Comment (NOTE) Normal 7 [facility] (38542) Comment: Result Comment: Reflexed maria del carmen t(s) performed per testing algorithm.*The following antibody was ident ified: voltage gatedpotassium channel (VGKC-complex); negative for leucine-rich, glioma inactivated 1 protein-IgG (LGI1) andContactin-associat ed fabpcmj-4-MnT (CASPR2). * The resultsof a positive VGKC-complex [...] Rasheed CJ. Expa nded phenotypes and outcomes cyisr343 LGI1/CASPR2-IgG positive pat ients. Annals of Titynvsyj5520; 82:79-92. * Doyle B, Jeremie M, Karla [...] LGI1 and Caspr2 antibodies.N eurology, 2016; 86; 0292-8905. Performed By: #### CK, FT4, TSH, LD6, HBA1C, LACPYR, AAQTPL, GADCAB, CARNPL, PLTHY ####[facility] L [address] [place], [place] [phone]#### CASRFX , LG1RFX, PARNEO #### [address] [phone] Neur V-G K+ Chann Ab 0.11 <=0.02 nmol/L High 7 [facility] (49193) Comment: Result Comment: (NOTE)------ ADDITIONAL INFORMATION --This test was developed and its performance characteristicsdetermined by [facility] in a manner consistent with CLIArequirements. This test has not been cleared or approved bythe U.S. Food and Drug Administration. Performed By: #### CK, FT4, TSH, LD6, HBA1C, LACPYR, AAQTPL, GADCAB, CARNPL, PLTHY ####[facility] [address] [place], [place] [phone]#### CASRFX , LG1RFX, PARNEO #### [facility] [place], [place] [phone] PARNEO Reflex Tests None. Normal 07-31-2017 [facility] () Comment: Result Comment: (NOTE)------ ADDITIONAL INFORMATION --This test was developed and its performance characteristicsdetermined by [facility] in a manner consistent with CLIArequirements. This test has not been cleared or approved bythe U.S. Food and Drug Administration. Performed By: #### CK, FT4, TSH, LD6, HBA1C, LACPYR, AAQTPL, GADCAB, CARNPL, PLTHY ####[facility] [address] [place], [place] [phone]#### CASRFX , LG1RFX, PARNEO #### [address] [phone] ELEVATOR MECHANIC APPRENTICE 1, S Negative <1:240 Normal 07-31-2017 [facility] (42460) Comment: Result Comment: (NOTE)------ ADDITIONAL INFORMATION --This test was developed and its performance characteristicsdetermined by [facility] in a manner consistent with CLIArequirements. This test has not been cleared or approved bythe U.S. Food and Drug Administration. Performed By: #### CK, FT4, TSH, LD6, HBA1C, LACPYR, AAQTPL, GADCAB, CARNPL, PLTHY ####[facility] [address] [place], [place] [phone]#### CASRFX , LG1RFX, PARNEO #### [facility] [place], [place] [phone] ELEVATOR MECHANIC APPRENTICE 2, S Negative <1:240 Normal 07-31-2017 [facility] (10942) Comment: Result Comment: (NOTE)------ ADDITIONAL INFORMATION --This test was developed and its performance characteristicsdetermined by [facility] in a manner consistent with CLIArequirements. This test has not been cleared or approved bythe U.S. Food and Drug Administration. Performed By: #### CK, FT4, TSH, LD6, HBA1C, LACPYR, AAQTPL, GADCAB, CARNPL, PLTHY ####[facility] [address] [place], [place] [phone]#### CASRFX , LG1RFX, PARNEO #### [facility] [place], [place] [phone] ELEVATOR MECHANIC APPRENTICE Tr, S Negative <1:240 Normal 07-31-2017 [facility] (09927) Comment: Result Comment: (NOTE)------ ADDITIONAL INFORMATION --This test was developed and its performance characteristicsdetermined by [facility] in a manner consistent with CLIArequirements. This test has not been cleared or approved bythe U.S. Food and Drug Administration. Performed By: #### CK, FT4, TSH, LD6, HBA1C, LACPYR, AAQTPL, GADCAB, CARNPL, PLTHY ####[facility] [address] [place], [place] [phone]#### CASRFX , LG1RFX, PARNEO #### [facility] [place], [place] [phone] Striational Ab, S Negative <1:120 Normal 07-31-2017 [facility] (90900) Comment: Result Comment: (NOTE)------ ADDITIONAL INFORMATION --This test was developed and its performance characteristicsdetermined by [facility] in a manner consistent with CLIArequirements. This test has not been cleared or approved bythe U.S. Food and Drug Administration. Performed By: #### CK, FT4, TSH, LD6, HBA1C, LACPYR, AAQTPL, GADCAB, CARNPL, PLTHY ####[facility] [address] [place], [place] [phone]#### CASRFX , LG1RFX, PARNEO #### [facility] [place], [place] [phone] lgi1-igg reflex on 2017-07-31 LGI1-IGG CBA SERUM Negative Negative Normal 07-31-2017 [facility] (49238) Comment: Result Comment: (NOTE)------ ADDITIONAL INFORMATION --This test was developed and its performance characteristicsdetermined by [facility] in a manner consistent with CLIArequirements. This test has not been cleared or approved bythe U.S. Food and Drug Administration. Performed By: #### CK, FT4, TSH, LD6, HBA1C, LACPYR, AAQTPL, GADCAB, CARNPL, PLTHY ####[facility] [address] [place], [place] [phone]#### CASRFX , LG1RFX, PARNEO #### [facility] [place], [place] [phone] ld on 2017-07-31 LD 241 135-214 U/L High 07-31-2017 [facility] (31723) Comment: Performed By: #### CK, FT4, TSH, LD6, HBA1C, LACPYR, AAQTPL, GADCAB, CARNPL, PLTHY ####[facility] [place], [place] [phone]#### CASRFX , LG1RFX, PARNEO #### [facility] [place], [place] [phone] lactate/pyruvate on 2017-07-31 Lactate molar conc 2.1 0.5-2.2 mmol/L Normal 07-31-2017 [facility] (56432) Comment: Performed By: #### CK, FT4, TSH, LD6, HBA1C, LACPYR, AAQTPL, GADCAB, CARNPL, PLTHY ####[facility] [place], [place] [phone]#### CASRFX , LG1RFX, PARNEO #### [facility] [place], [place] [phone] Pyruvate 0.15 0.03-0.08 mmol/L High 07-31-2017 [facility] (50658) Comment: Result Comment: Specimen was not treated within the desired 30 minute time. Pyruvate result may be false ly decreased and lactate result may be falsely elevated. Performed By: #### CK, FT4, TSH, LD6, HBA1C, LACPYR, AAQTPL, GADCAB, CARNPL, PLTHY ####[facility] [place], [place] [phone]#### CASRFX , LG1RFX, PARNEO #### [facility] [place], [place] [phone] hemoglobin a1c on Glucose mass conc >240 mg/dL Normal 07-31-2017 [facility] (40076) Comment: Result Comment: eAG: (Estima patrick average glucose) is a calculated value from HgbA1c and is veterans employment representative of the average blood glucose level in the last 2-3 month period. Performed By: #### CK, FT4, TSH, LD6, HBA1C, LACPYR, AAQTPL, GADCAB, CARNPL, PLTHY ####[facility] [place], [place] [phone]#### CASRFX , LG1RFX, PARNEO #### [facility] [place], [place] [phone] Hemoglobin A1c/Hemoglobin.total 10.7 4.3-5.6 % High 07-31-2017 [facility] mass fraction (Bld) [place] ([address]303) Comment: Result Comment: [place] Jhoana betes Association guidelines indicate that patients with HgbA1c in the range 5.7-6.4% are at increased risk for development of diabetes, and intervention by lifestyle modification may be beneficial. HgbA1c greater o r equal to 6.5% is considered diagnostic of diabetes. Performed By: #### CK, FT4, TSH, LD6, HBA1C, LACPYR, AAQTPL, GADCAB, CARNPL, PLTHY ####[facility] [place], [place] [phone]#### CASRFX , LG1RFX, PARNEO #### [facility] [place], [place] [phone] glutamic ac decar ab on 2017-07-31 Glutamic Ac Decar Ab <5.0 <5.0 Normal 7 [facility] (13975) Comment: Performed By: #### CK, FT4, TSH, LD6, HBA1C, LACPYR, AAQTPL, GADCAB, CARNPL, PLTHY ####[facility] [place], [place] [phone]#### CASRFX , LG1RFX, PARNEO #### [facility] [place], [place] [phone] free t4 on T4 free mass conc 1.2 0.9-1.7 ng/dL Normal 07-31-2017 [facility] (57465) Comment: Performed By: #### CK, FT4, TSH, LD6, HBA1C, LACPYR, AAQTPL, GADCAB, CARNPL, PLTHY ####[facility] L [address] [place], [place] [phone]#### CASRFX , LG1RFX, PARNEO #### [facility] [place] [phone] cnov on 2017-07-31 CNOV Office Visit Normal 07-31-2017 [place] and (GASTMN) --------[facility] ([id number][facility] 1955 FDat e Time Provider Mpghzhprxv56/13/17 10:00 AM MUKUL STEVEN GASTMN During Clev and your visit today, we recorde d the following information about you: Temperature Pulse Blood pressure (91206) Weight 98.6 degrees 68/minut e 175/87 107 kg Height 1.676 mMsaul Steven DO 07/31/2017 10:10 AM SignedGASTROPARESIS CONSULTP [facility] You Parks for [...] mg 2x per day (taking for 2years); [place] 4x per day (20 years). Diet: eats [...] mg 2x per day(taking for 2 years); [place] 4x per day (20 years)Drug use- History or current drug use (Marijuana, Cocaine, Heroine , etc...) NoEating Disorders- Does the patient have a history of eating disorders NoPsychiatric Diso rders- Does the patient have a history of psychiatric disorders including PTSD: NoNutrition- Has the p atient met with a revenue cycle consultant for diet recommendations withGastroparesis? No - Jejunostomy [...] Cramer Age [age] year old MRN [id number] ConsultTest Date Completed ResultsLabsEGD [facility] Findings:The examined [...] .?IMPRESSION:Markedly delayed solid gastric emptying.Gastric Emptying Study [facility] Findings:Initially static images were obtained after the [...] the end of 3 hours.XR [facility] Impression:1. Findings described above con sistent with gastritis and duodenitis withmultiple small superficial ulcerations and mucosal fold thickening. No largeulcers or masses are identified.2. Multiple spontaneous episodes of GE r eflux to the level above the clavicles.There also are tertiary contractions consistent with presbyesophagus. Noevidence of esophageal ulceration or stricture is seen. Correlate clinically.3 . Chronic changes as described above.ConsultsGI [id number] Harvey Belcher, [facility] SUBJECTIVE: Crystal chen s last seen [...] HISTORYProcedure Laterality Date- COLONOSCOP W/ OR W/O [facility] SPEC 06/19/2013 Colonoscopy- COLONOSCOPY W/BX 05/27/07- [...] mg tabletMukul Steven DO2016Referring Provider: YOU PARKS [[id number]]Allergies As of Date: 07/31/2017 Noted Aller gy ReactionBACTRIM (SULFAMETHOXAZOLE- TRIMETH*07/31/2017 4 - HivesCIPROFLOXACIN 3 16 - UnknownFLEXERIL (CYCLOBENZAPRINE) 06/10/2013 16 - UnknownMETFORMIN 06/28/2017 14 - Other: See Azael gardiner Comments: MigrainesTORADOL (KETOROLAC) 03/22/2006band aids [Other] 05/27/2007Date Reviewed: Reviewed by: Mukul Steven - Fully AssessedReason for Visit: Consult [502] Cmt: Gastropar esisPrimary Visit Diagnosis:Gastroparesis [K31.84]Order(s):CK CREATINE KINASE [SQCK] Order #: [id number] FUTURE LD LACTATE DEHYDRO [SQLD6] Order #: [id number] FUTURE HGB A1C [NMKUB5E] Order #: [id number] FUTURE TSH BLD [SQTSH] Order #: [id number] FUTURE T4 FREE/FREE THYROX [SQFT4] Order #: [id number] FUTURE PYRUVATE+LACTATE BL [SQLACPYR] Order #: [id number] FUTURE AMINO ACID QUANT BLD [SQAAQTPL] Or batsheva #: [id number] FUTURE CARNITINE FREE/TOTAL, PLASMA [SQCARNPL] Order #: [id number] FUTURE PARANEOPLA ST AUTOABS [SQPARNEO] Order #: [id number] FUTURE GLUTAMIC AC DECARBOXYLASE AB [SQGADCAB] Order #: [id number] FUTURE PLASMA THYMIDINE DETERMINATION [SQPLTHY] Order #: [id number] FUTURE CAPSULE ENDOSCOPY SMA RT [2689072] Order #: [id number] FUTURE mirtazapine (REMERON) 15 mg tabletTake 1 [...] Status:Closed by MUKUL STEVEN DO on 10/01/16 [facility] Office Visit Normal 07-31-2017 Shauna colón (SVEN) --------CRYSTAL CRAMER [facility] ([id number]) [address] [facility] e Time Provider Ujjhcgymfs10/13/17 9:00 AM RAYNE COOK During your visit today, we recorded the following information about you:Rayne Odom, PHD ([id number]) 07/31/2017 10:40 AM [facility] InstituteName: Crystal Mallory#: [id number]: 07/19 11/02Time: [address]: Dr. Cruz [...] benefitsof exercise.Rayne Odom, Ph.D.Referring Provider: MUKUL RUIZ [[id number]]Allergies As of Date: 07/31/2017 Noted Allergy ReactionBACTRIM [...] Skip nd (GASTMN) --------[facility]STAL CRAMER [facility] ([id number]) 1955 FDat e Time Provider Defkqdqvts18/13/17 10:30 AM NURSE PT ED KOBE GASTMN [...] In Department: GASTROENTEROLOGYReferring Pr ovider: HARVEY BELCHER [[id number]]Allergies As of Date: 07/31/2017 Noted Allergy ReactionBACTRI [...] act/vol 54 42-196 U/L Normal 07-31-2017 [facility] (01156) Comment: Result Comment: Please note the updated, gender-specific reference range for this test (effective 016). Performed By: #### CK, FT4, TSH, LD6, HBA1C, LACPYR, AAQTPL, GADCAB, CARNPL, PLTHY ####[facility] L [address], [place] [phone]#### CASRFX , LG1RFX, PARNEO #### [facility] [address] [place], [place] [phone] caspr2-igg reflex o n 2017-07-31 CASPR2-IGG CBA SERUM Negative Negative Normal 7 [facility] (76059) Comment: Result Comment: (NOTE)------ ADDITIONAL INFORMATION --This test was developed and its performance characteristicsdetermined by [facility] in a manner consistent with CLIArequirements. This test has not been cleared or approved bythe U.S. Food and Drug Administration. Performed By: #### CK, FT4, TSH, LD6, HBA1C, LACPYR, AAQTPL, GADCAB, CARNPL, PLTHY ####[facility] [address], [place] [phone]#### CASRFX , LG1RFX, PARNEO #### [facility] [address] [place], [place] [phone] carnitine fr/tot, pl on 2017-07-31 Carnitine Interp (NOTE) Normal 07-31-2017 [facility] (08482) Comment: Result Comment: This assay o f [...] characteristics determinedby the Pathology and Laboratory Medicine [place] at the [facility]. The U.S. Food and Drug Administration has not approved orcleared this test , however, FDA clearance or approval is not currentlyrequired for clinic al use. Performed By: #### CK, FT4, TSH, LD6, HBA1C, LACPYR, AAQTPL, GADCAB, CARNPL, PLTHY ####[facility] [address] AveCHumnoke, [place] [phone]#### CASRFX , LG1RFX, PARNEO #### [facility] [place], [place] [phone] Carnitine Review Reviewed by Mayo Collier 07-19 [facility] MD Kayode, PhD Marcell jang ([id number]) (12235) Comment: Performed By: #### CK, FT4, TSH, LD6, HBA1C, LACPYR, AAQTPL, GADCAB, CARNPL, PLTHY ####[facility] [address] [place], [place] [phone]#### CASRFX , LG1RFX, PARNEO #### [facility] [place], [place] [phone] Free L-Carnitine 29 22-52 umol/L Normal 07-31-2017 [facility] (37531) Comment: Performed By: #### CK, FT4, TSH, LD6, HBA1C, LACPYR, AAQTPL, GADCAB, CARNPL, PLTHY ####[facility] [place], [place] [phone]#### CASRFX , LG1RFX, PARNEO #### [facility] [place], [place] [phone] Free/Tot Carn Ratio 0.725 0.7-0.9 Normal 07-31-2017 [facility] (64922) Comment: Performed By: #### CK, FT4, TSH, LD6, HBA1C, LACPYR, AAQTPL, GADCAB, CARNPL, PLTHY ####[facility] [place], [place] [phone]#### CASRFX , LG1RFX, PARNEO #### [facility] [place], [place] [phone] Total L-Carnitine 40 27-66 umol/L Normal 07-31-2017 [facility] (56087) Comment: Performed By: #### CK, FT4, TSH, LD6, HBA1C, LACPYR, AAQTPL, GADCAB, CARNPL, PLTHY ####[facility] [address] [place], [place] [phone]#### CASRFX , LG1RFX, PARNEO #### [facility] [place], [place] [phone] amino acids quant,pl on 2017-07-31 Alanine 389 177-583 um/L Normal 07-31-2017 [facility] (79657) Comment: Performed By: #### CK, FT4, TSH, LD6, HBA1C, LACPYR, AAQTPL, GADCAB, CARNPL, PLTHY ####[facility] [place], [place] [phone]#### CASRFX , LG1RFX, PARNEO #### [facility] [place], [place] [phone] Alloisoleucine 0 0-2 um/L Normal 07-31-2017 [facility] (30828) Comment: Performed By: #### CK, FT4, TSH, LD6, HBA1C, LACPYR, AAQTPL, GADCAB, CARNPL, PLTHY ####[facility] [place], [place] [phone]#### CASRFX , LG1RFX, PARNEO #### [facility] [place], [place] [phone] Alpha-aminoadipic Ac 0 0-6 um/L Normal 7 [facility] (31307) Comment: Performed By: #### CK, FT4, TSH, LD6, HBA1C, LACPYR, AAQTPL, GADCAB, CARNPL, PLTHY ####[facility] [address] [place], [place] [phone]#### CASRFX , LG1RFX, PARNEO #### [facility] [place], [place] [phone] Review Reviewed by [place] Normal 07-31-2017 [facility] Jodee, Ph.D. Suman case (86265) Comment: Performed By: #### CK, FT4, TSH, LD6, HBA1C, LACPYR, AAQTPL, GADCAB, CARNPL, PLTHY ####[facility] [address] [place], [place] [phone]#### CASRFX , LG1RFX, PARNEO #### [facility] [place], [place] [phone] Arginine 19 15-128 um/L Normal 07-31-2017 [facility] (33872) Comment: Performed By: #### CK, FT4, TSH, LD6, HBA1C, LACPYR, AAQTPL, GADCAB, CARNPL, PLTHY ####[facility] [address] [place], [place] [phone]#### CASRFX , LG1RFX, PARNEO #### [facility] [place], [place] [phone] Asparagine 30 35-74 um/L Low 07-31-2017 [facility] (06829) Comment: Performed By: #### CK, FT4, TSH, LD6, HBA1C, LACPYR, AAQTPL, GADCAB, CARNPL, PLTHY ####[facility] [address] [place], [place] [phone]#### CASRFX , LG1RFX, PARNEO #### [facility] [place], [place] [phone] Aspartic Acid 6 1-25 um/L Normal 07-31-2017 [facility] (35227) Comment: Performed By: #### CK, FT4, TSH, LD6, HBA1C, LACPYR, AAQTPL, GADCAB, CARNPL, PLTHY ####[facility] [address] [place], [place] [phone]#### CASRFX , LG1RFX, PARNEO #### [facility] [place], [place] [phone] Citrulline 24 12-55 um/L Normal 07-31-2017 [facility] (20694) Comment: Performed By: #### CK, FT4, TSH, LD6, HBA1C, LACPYR, AAQTPL, GADCAB, CARNPL, PLTHY ####[facility] [address] [place], [place] [phone]#### CASRFX , LG1RFX, PARNEO #### [facility] [place], [place] [phone] Cystine 42 5-82 um/L Normal 07-31-2017 [facility] (24447) Comment: Performed By: #### CK, FT4, TSH, LD6, HBA1C, LACPYR, AAQTPL, GADCAB, CARNPL, PLTHY ####[facility] [address] [place], [place] [phone]#### CASRFX , LG1RFX, PARNEO #### [facility] [place], [place] [phone] Glutamic Acid 130 10-131 um/L Normal 07-31-2017 [facility] (26755) Comment: Performed By: #### CK, FT4, TSH, LD6, HBA1C, LACPYR, AAQTPL, GADCAB, CARNPL, PLTHY ####[facility] [address] AveCkettering memorial hospitalandPrattville, [place] [phone]#### CASRFX , LG1RFX, PARNEO #### [facility] ZULMA blake [place] [phone] Glutamine 391 205-756 um/L Normal 07-31-2017 [facility] (53775) Comment: Performed By: #### CK, FT4, TSH, LD6, HBA1C, LACPYR, AAQTPL, GADCAB, CARNPL, PLTHY ####[facility] [address] AveCHumnoke, [place] [phone]#### CASRFX , LG1RFX, PARNEO #### [facility] [place], [place] [phone] Glycine 139 151-490 um/L Low 07-31-2017 [facility] (33624) Comment: Performed By: #### CK, FT4, TSH, LD6, HBA1C, LACPYR, AAQTPL, GADCAB, CARNPL, PLTHY ####[facility] [address], [place] [phone]#### CASRFX , LG1RFX, PARNEO #### [facility] [place], [place] [phone] Histidine 55 72-124 um/L Low 07-31-2017 [facility] (33857) Comment: Performed By: #### CK, FT4, TSH, LD6, HBA1C, LACPYR, AAQTPL, GADCAB, CARNPL, PLTHY ####[facility] [address] AveCHumnoke, [place] [phone]#### CASRFX , LG1RFX, PARNEO #### [facility] [place], [place] [phone] Hydroxylysine 1 0 um/L High 07-31-2017 [facility] (45812) Comment: Performed By: #### CK, FT4, TSH, LD6, HBA1C, LACPYR, AAQTPL, GADCAB, CARNPL, PLTHY ####[facility] [place], [place] [phone]#### CASRFX , LG1RFX, PARNEO #### [facility] [place], [place] [phone] Hydroxyproline 10 0-53 um/L Normal 07-31-2017 [facility] (98073) Comment: Performed By: #### CK, FT4, TSH, LD6, HBA1C, LACPYR, AAQTPL, GADCAB, CARNPL, PLTHY ####[facility] [place], [place] [phone]#### CASRFX , LG1RFX, PARNEO #### [facility] [place], [place] [phone] Interpretation (NOTE) Normal 07-31-2017 [facility] (32886) Comment: Result Comment: THIS PLASMA AMINO ACID ANALYSIS SHOWS LOW LEVELS OF SEVERAL AMINOACIDS SUGGESTING REDUCE D DIETARY AMINO ACID INTAKE. Date of Analysis:08/02/17 Date of Re view: 08/02/17 Reference intervals from Veronica Thrasher, Christina MG, Floyd GEORGE, marsha CROCKER: Biochemical Genetics: A Laboratory Manual, Copyright 1989 by [facility] [employer] Reference intervals not established for some ami no acids. This test was developed and its performance characteristics determined by [facility]'s Jenny العلي [facility] Pathology and [facility] ([facility]). It has not been cleared or approved by the FDA. -[facility] is regulated under CLIA as qualified to perform high-co mplexity testing. This test is used for clinical purposes. It should not be r egarded as investigational or for research. Performed By: #### CK, FT4, TSH, LD6, HBA1C, LACPYR, AAQTPL, GADCAB, CARNPL, PLTHY ####[facility] [address] AveCHumnoke, [place] [phone]#### CASRFX , LG1RFX, PARNEO #### [facility] [place], [place] [phone] Isoleucine 51 30-108 um/L Normal 07-31-2017 [facility] (64496) Comment: Performed By: #### CK, FT4, TSH, LD6, HBA1C, LACPYR, AAQTPL, GADCAB, CARNPL, PLTHY ####[facility] [address], [place] [phone]#### CASRFX , LG1RFX, PARNEO #### [facility] [place], [place] [phone] Leucine 83 72-201 um/L Normal 07-31-2017 [facility] (16236) Comment: Performed By: #### CK, FT4, TSH, LD6, HBA1C, LACPYR, AAQTPL, GADCAB, CARNPL, PLTHY ####[facility] [address] [place], [place] [phone]#### CASRFX , LG1RFX, PARNEO #### [facility] [place], [place] [phone] Lysine 116 116-296 um/L Normal 07-31-2017 [facility] (27996) Comment: Performed By: #### CK, FT4, TSH, LD6, HBA1C, LACPYR, AAQTPL, GADCAB, CARNPL, PLTHY ####[facility] [address], [place] [phone]#### CASRFX , LG1RFX, PARNEO #### [facility] [place], [place] [phone] Methionine 13 10-42 um/L Normal 07-31-2017 [facility] (37744) Comment: Performed By: #### CK, FT4, TSH, LD6, HBA1C, LACPYR, AAQTPL, GADCAB, CARNPL, PLTHY ####[facility] [address] [place], [place] [phone]#### CASRFX , LG1RFX, PARNEO #### [facility] [place], [place] [phone] Ornithine 73 48-195 um/L Normal 07-31-2017 [facility] (77947) Comment: Performed By: #### CK, FT4, TSH, LD6, HBA1C, LACPYR, AAQTPL, GADCAB, CARNPL, PLTHY ####[facility] [address] [place], [place] [phone]#### CASRFX , LG1RFX, PARNEO #### [facility] [place], [place] [phone] Phenylalanine 49 35-85 um/L Normal 07-31-2017 [facility] (19859) Comment: Performed By: #### CK, FT4, TSH, LD6, HBA1C, LACPYR, AAQTPL, GADCAB, CARNPL, PLTHY ####[facility] [address] [place], [place] [phone]#### CASRFX , LG1RFX, PARNEO #### [facility] [place], [place] [phone] Proline 229 97-329 um/L Normal 07-31-2017 [facility] (01031) Comment: Performed By: #### CK, FT4, TSH, LD6, HBA1C, LACPYR, AAQTPL, GADCAB, CARNPL, PLTHY ####[facility] [address] [place], [place] [phone]#### CASRFX , LG1RFX, PARNEO #### [facility] [facility] HospitalKana pittmanMontello, [place] [phone] Sarcosine 0 0 um/L Normal 07-31-2017 [facility] (57276) Comment: Performed By: #### CK, FT4, TSH, LD6, HBA1C, LACPYR, AAQTPL, GADCAB, CARNPL, PLTHY ####[facility] [address], [place] [phone]#### CASRFX , LG1RFX, PARNEO #### [facility] [place], [place] [phone] Serine 59 58-181 um/L Normal 07-31-2017 [facility] (44196) Comment: Performed By: #### CK, FT4, TSH, LD6, HBA1C, LACPYR, AAQTPL, GADCAB, CARNPL, PLTHY ####[facility] [address] [place], [place] [phone]#### CASRFX , LG1RFX, PARNEO #### [facility] [place], [place] [phone] Taurine 61 54-210 um/L Normal 07-31-2017 [facility] (41894) Comment: Performed By: #### CK, FT4, TSH, LD6, HBA1C, LACPYR, AAQTPL, GADCAB, CARNPL, PLTHY ####[facility] [address]tmprje[address] [place], [place] [phone]#### CASRFX , LG1RFX, PARNEO #### [facility] [place], [place] [phone] Threonine 59 60-225 um/L Low 07-31-2017 [facility] (72662) Comment: Performed By: #### CK, FT4, TSH, LD6, HBA1C, LACPYR, AAQTPL, GADCAB, CARNPL, PLTHY ####[facility] [place], [place] [phone]#### CASRFX , LG1RFX, PARNEO #### [facility] [place], [place] [phone] Tyrosine 51 34-112 um/L Normal 07-31-2017 [facility] (95995) Comment: Performed By: #### CK, FT4, TSH, LD6, HBA1C, LACPYR, AAQTPL, GADCAB, CARNPL, PLTHY ####[facility] [place], [place] [phone]#### CASRFX , LG1RFX, PARNEO #### [facility] [place], [place] [phone] Valine 175 119-336 um/L Normal 07-31-2017 [facility] (50569) Comment: Performed By: #### CK, FT4, TSH, LD6, HBA1C, LACPYR, AAQTPL, GADCAB, CARNPL, PLTHY ####[facility] [place], [place] [phone]#### CASRFX , LG1RFX, PARNEO #### [facility] [place], [place] [phone] nm gastric emptying solid on 2017-07-19 NM GASTRIC Performed at [facility] APPROVED BY: [facility] Rodolfo Azar MD (58554) EXAMINATION: NM GASTRIC EMPTYING STUDY EXAM DATE: [...] 07-19-2017 - Ambulatory Nausea with HARVEY FAJARDO [facility] 07-20-2017 vomiting, [facility] unspecified (47457) 07-08-2017 Ambulatory CA Facility:[facility] 03-29-2020 - Patient encounter External [facility] 03-29-2020 procedure Provider 08-31-2018 Patient encounter [facility] - Facility:[facility] procedure [facility] 07-23-2018 - Patient encounter AYANA LOPEZ) [facility] 07-23-2018 procedure [facility] (0000 0) 05-23-2018 - Patient encounter [facility] 05-26-2018 procedure [place] (0000 0) 12-31-2017 - Patient encounter MUKUL Luis JARETT Villatoroa [facility] 12-31-2017 procedure [place] (0000 0) 12-31-2017 - Patient encounter MUKUL Luis STEVEN Juwanvela [facility] 12-31-2017 procedure [place] (0000 0) 12-31-2017 - Patient encounter MUKUL Villatoroa [facility] 01-01-2018 procedure [place] (0000 0) 12-18-2017 - Patient encounter MUKUL Luis Echeverrianemoa [facility] 12-18-2017 procedure YUO JOHNSON [place] (0000 0) DARYL 10-22-2017 - Patient encounter MUKUL Echeverrianemoa [facility] 10-22-2017 procedure MUKUL Luis STEVEN [place] (0 0000) 10-11-2017 - Patient encounter MUKUL Villatoroa [facility] 10-11-2017 procedure [place] (0000 0) 07-31-2017 - Patient encounter M[facility]UL MANCILLAPrice [facility] 08-08-2017 procedure HARVEYRADHA FAJARDO [place] (0000 0) BUCKY GUILLORY MUKUL Banuelos JARETT 03-29-2020 Results Only External External-NonCCF Provider Procedures Procedure Name Date Provider Location EXTERNAL IMAGING 03-29-2020 External Provider [place] [facility] magui ([id number]) Mammography 12-31-2017 [facility] (30224) Plan of Treatment Plan Description Date Location INFLUENZA (#1) INFLUENZA (#1) 2020 [facility] (29582) ADVANCE DIRECTIVE ADVANCE DIRECTIVE 2019 [facility] inic DISCUSSION DISCUSSION (20273) BONE DENSITY BONE DENSITY 2019 [facility] (53270) PNEUMOVAX AGE 65 AND OVER PNEUMOVAX AGE 65 AND OVER 2019 [facility] WITH 5YR LOOKBACK (#1) WITH 5YR LOOKBACK (#1) (1 3768) MAMMOGRAM MAMMOGRAM 12-31-2018 [facility] ([id number]) COLORECTAL CANCER COLORECTAL CANCER 06-19-2018 [facility] SCREENING,SEE MODIFIER SCREENING,SEE MODIFIER ([phone]) HBA1C HBA1C 10-29-2017 [facility] ([id number]) LDL CHOLESTEROL LDL CHOLESTEROL 11-12-2015 [facility] ([id number]) SHINGRIX VACCINE (1 of 2) SHINGRIX VACCINE (1 of 2) 2004 [facility] ([id number]) DTAP,TDAP,TD (1 - Tdap) DTAP,TDAP,TD (1 - Tdap) 1973 [facility] ([id number]) ANNUAL PCP TEAM CHRONIC ANNUAL PCP TEAM CHRONIC 1972 [facility] DISEASE VISIT DISEASE VISIT ([id number]) HEPATITIS C SCREENING HEPATITIS C SCREENING 1972 [facility] ([id number]) HIV SCREENING HIV SCREENING 1972 [facility] ([id number]) DIABETIC FOOT EXAM DIABETIC FOOT EXAM 1964 [facility] ([id number]) URINE ALBUMIN:CREATININE URINE ALBUMIN:CREATININE 1964 [facility] RATIO RATIO ([id number]) DILATED RETINAL EXAM DILATED RETINAL EXAM 1964 [facility] ([id number]) Payers Payer Name Policy Number Location [employer] [id number] [facility] ([id number]) [facility] [id number] [facility] ([id number]) The following information is from the original human readable contentNo Payer Records FoundNo Payer Records FoundNo Payer Records FoundNo Payer Records FoundNo Payer Records FoundNo Payer Records FoundNo Payer Records Found Social History Type Social History Description Date Locat ion Tobacco smoking status Never smoker 07-23-2018 [facility] ([id number]) NHIS Tobacco use and exposure Never used 07-23-2018 [facility] ([id number]) Alcohol intake Current non-drinker of 07-23-2018 [facility] ([id number]) alcohol (finding) Sex Assigned At Not on file [facility] ([id number]) The following information is from the original [...] BE BASED ON THE PRIMARY CLINICAL RECORDS. [facility] provides no warranty or guarantee of the accuracy or completeness of information in this document. UNRECOGNIZED CONTENT PROVIDED BELOW FOR UNRECOGNIZED SECTION INFORMATION SOURCE DATE CREATED AUTHOR AUTHOR'S ORGANIZATIO N 02/11/2018 [facility] DATE CREATED AUTHOR AUTHOR'S ORGANIZATIO N 02/11/2018 [facility] DATE CREATED AUTHOR AUTHOR'S ORGANIZATIO N 07/29/2018 [facility] DATE CREATED AUTHOR AUTHOR'S ORGANIZATIO N 09/03/2018 [facility] DATE CREATED AUTHOR AUTHOR'S ORGANAAMIRATIO N 05/20/2020 [facility] Found ation ([place]) UNRECOGNIZED CONTENT PROVIDED BELOW FOR UNRECOGNIZED SECTION Source Comments In the event this information is protected by the Federal Confidentiality of Alcohol and Drug Abuse Patient Records regulations: The Federal rules restrict any use of the information to criminally investigate or prosecute any alcohol or drug abuse patient.[facility]
== END ==
PROVIDERS: PCP Family Medicine; Referring Provider Internal Medicine Nephrology; Visit Provider Internal Medicine Nephrology
DX: N18.3 Chronic kidney disease, stage 3 (moderate) (principal)
CPT/HCPCS: 36415; 80069; 83970; 85027

== ENCOUNTER 2020-01-22 10:52 | Emergency (ER) | payer MEDICARE, MEDICAID, SELFPAY ==
[2020-01-11 13:41] VITALS: BMI 46.0
[2020-01-22 10:53] VITALS: BP 192/85; PULSE 98; RESP 19; TEMP 36.6; O2SAT 93; BMI 46.0
--- NOTE | 2020-01-22 11:27 | EKG12_ITS ---
Test Reason : Blood Pressure : / mmHG Vent. Rate : 072 BPM Atrial Rate : 072 BPM P-R Int : 162 ms QRS Dur : 096 ms QT Int : 444 ms P-R-T Axes : 022 -39 054 degrees QTc Int : 486 ms Normal sinus rhythm Left axis deviation Abnormal ECG Confirmed by ABIMAEL CURRY, CAROLE ([id number]), science editor VIDAL MCDERMOTT ([id number]) on 01/25/2020 1:28:54 PM Referred By: CYNDY Confirmed By:CAROLE VARGHESE MD
--- NOTE | 2020-01-22 11:27 | CT_ITS ---
STUDY: CT ABDOMEN AND PELVIS WITH CONTRAST REASON FOR EXAM: Female, 64 years old. AB PAIN X 4 WEEKS, HX KUMAR, APPY, DB RADIATION DOSAGE (If Supplied By Facility): CTDIvol = ( 18.74 ) mGy, DLP = ( 1335 ) mGycm TECHNIQUE: Transaxial images were obtained from the dome of the diaphragm to the symphysis pubis without oral contrast. IV 100mL Isovue-300 was administered. Sagittal and coronal images were reconstructed. Individualized dose optimization techniques were used for this CT. COMPARISON: Comparison is made with prior study dated August 20, 2019. FINDINGS: The visualized lung bases are unremarkable. The visualized portions of the heart are within normal limits. Normal liver. There are surgical clips in the gallbladder fossa consistent with a prior cholecystectomy. Normal spleen. There is diffuse atrophy of the pancreas. Normal bilateral adrenal glands. Normal right kidney. Normal left kidney. Normal visualized stomach. Normal small intestine. There are scattered colonic diverticula consistent with diverticulosis. There is non-visualization of the appendix. There is scattered atherosclerotic calcification of the abdominal aorta, without a demonstrated aneurysm. Normal inferior vena cava. There is borderline retroperitoneal lymphadenopathy with enlarged nodes no greater than 10mm in the short axis diameter. Normal urinary bladder. Calcified fibroid uterus. There is a small umbilical hernia containing fat. There mild diffuse degenerative changes of the visualized lumbar spine. CT/Abdomen/Pelvis W IV Cont ONLY IMPRESSION: Essentially stable examination. No acute abnormality is seen. Electronically Signed: Tristan De La Garza, at 13:13 EDT , Service support ,
--- NOTE | 2020-01-22 11:38 | ED.VIS.GI ---
History of Present Illness Chief Complaint: Abd Pain Informant: Patient - Abdominal Pain/Flank Pain Onset: Days Context: Gradual Onset Quality: Burning Location: LUQ Narrative: Is a 64-year-old female with history of cyclic vomiting syndrome, chronic back pain, type 2 diabetes mellitus, gastroparesis, fibromyalgia, GERD, seizure disorder, proximal A. fib, chronic pain syndrome, Takotsubo cardiomyopathy, hyperlipidemia, hypertension and depression presenting with nausea, vomiting abdominal pain. States she is had worsening pain on her left upper abdomen for the past 4 weeks. Initially her doctor thought it was shingles but the pain is persisted. She never developed any rash. Patient's Percocet dose was increased but she feels that not helping adequately. Patient developed nausea and vomiting over the past 2 days. She states she is vomited twice today and has been yellow. She denies any black or blood in her vomit. She states her bowel movements been normal. She denies any other complaints at this time. She not have associated chest pain. States he is chronically short of breath with exertion and this is unchanged. She denies any swelling of her legs. Past Medical History - Allergies and Home Meds Allergies/Adverse Reactions: Allergies ciprofloxacin [From Cipro] Allergy (Verified 01/22/20 10:53) short of breath cyclobenzaprine Allergy (Verified 01/22/20 10:53) rash metformin Allergy (Verified 01/22/20 10:53) other sulfamethoxazole Allergy (Verified 01/22/20 10:53) itch trimethoprim Allergy (Verified 01/22/20 10:53) itch valacyclovir [From Valtrex] Allergy (Verified 01/22/20 10:53) other ketorolac [From Toradol] Adverse Reaction (Verified 01/22/20 10:53) Other Primary Care Physician: Devan Parks MD [Primary Care Provider] - Past Medical History: - - cyclic vomiting syndrome, chronic back pain, type 2 diabetes mellitus, gastroparesis, fibromyalgia, GERD, seizure disorder, proximal A. fib, chronic pain syndrome, Takotsubo cardiomyopathy, hyperlipidemia, hypertension and depression Surgical History: appendectomy, cholecystectomy, - - Arthroscopic knee surgery. Smoking Status: Unknown if ever smoked - Family History Paternal Family History: Family History (Last Reviewed 09/02/19 @ 14:25 by GRAHAM Briceño) Mother Myocardial infarction Father Congestive heart failure Other Diabetes Heart disease Family History: Reports: Heart Disease, - - Bone cancer Maternal Family History: Family History (Last Reviewed 09/02/19 @ 14:25 by GRAHAM Briceño) Mother Myocardial infarction Father Congestive heart failure Other Diabetes Heart disease Family History: Reports: COPD, Diabetes, Heart Disease, - - Smoker Review of Systems General: Denies: Chills, Fever, Sweats Eyes: Denies: Visual changes - bilaterally, Diplopia ENT: Denies: Rhinorrhea, Sore throat Cardiovascular: Denies: Chest pain, Palpitations Respiratory: Reports: Dyspnea. Denies: Cough, Dyspnea on exertion Gastrointestinal: Reports: Abdominal pain, Nausea, Vomiting. Denies: Diarrhea, Melena, Hematochezia Genitourinary: Denies: Dysuria, Hematuria, Frequency Musculoskeletal: Denies: Back pain, Extremity Pain Skin: Denies: Rash, Wounds Neurological: Denies: Headache, Weakness, Numbness Physical Exam Vital Signs/Narrative: Vital Signs Temp Pulse Resp BP Pulse Ox 01/22/20 10:53 97.9 F 98 19 H 192/85 H 93 Inital Vital Signs reviewed: Yes General: Well nourished, Well developed, No Acute Distress Head: Normocephalic, Atraumatic Eyes: Perrl, EOMI ENT: Moist mucous membranes, No rhinorrhea Neck: Supple, Nontender Cardiovascular: Regular rate, Regular rhythm, No murmurs Respiratory: No distress, CTA bilaterally, Chest nontender Abdomen: Soft, Nondistended, Normal bowel sounds, Tender - mild, LUQ. Negative for: Guarding, Rebound tenderness Back: Nontender, Normal Inspection. Negative for: CVA tenderness, Spinal tenderness Extremities: Nontender, No edema Skin: Normal color, No rash Neurological: Alert, Oriented x3, Cranial nerves II-XII grossly intact, Normal Strength, Normal Sensation Psychological: Normal affect, Normal Mood Diagnostic/Tx/Re-eval Clinical Impression(s) from Imaging Studies Abdomen/Pelvis CT 01/22/20 11:27 IMPRESSION: Essentially stable examination. No acute abnormality is seen. Electronically Signed: Tristan De La Garza, at 13:13 EDT , Service support , Laboratory Data 01/22/20 01/22/20 01/22/20 11:50 11:50 12:10 WBC 11.4 H RBC 4.66 Hgb 13.0 Hct 41.2 MCV 88.4 MCH 27.9 MCHC 31.6 L RDW Std Deviation 44.0 H RDW Coeff of Be 13.7 Plt Count 251 MPV 10.1 Immature Gran % (Auto) 0.300 Neut % (Auto) 75.4 H Lymph % (Auto) 15.0 L [place] % (Auto) 6.6 Eos % (Auto) 2.1 Baso % (Auto) 0.6 Absolute Neuts (auto) 8.6 H Absolute Lymphs (auto) 1.72 Nucleated RBC % 0 Sodium 136 Potassium 4.3 Chloride 101 Carbon Dioxide 28.0 Anion Gap 7 BUN 14 Creatinine 1.11 H Estim Creat Clear Calc 47.30 Est GFR (MDRD) Af Amer 63 Est GFR (MDRD) Non-Af 52 L BUN/Creatinine Ratio 12.6 Glucose 341 H Calcium 9.1 Total Bilirubin 0.80 AST 22 ALT 29 Alkaline Phosphatase 171 H Troponin I < 0.015 Total Protein 7.3 Albumin 3.2 Globulin 4.1 Albumin/Globulin Ratio 0.8 L Lipase 97 Urine Color Yellow Urine Clarity Clear Urine pH 6.0 Ur Specific [place] 1.010 Urine Protein Negative Urine Glucose (UA) 1000 H Urine Ketones Negative Urine Occult Blood 10 H Urine Nitrite Positive H Urine Bilirubin Negative Urine Urobilinogen Normal Ur Leukocyte Esterase 500 H Urine RBC 0 SEEN Urine WBC 0-5 SEEN Ur Squamous Epith Cells 0 SEEN Urine Bacteria 2+ Urine Mucus 0 SEEN - Rhythm Strip Rhythm Strip: Sinus Rhythm Rate: 72 Ectopy: None - EKG Initial EKG Interpretation: Sinus Rhythm, - - Rate of 72 Normal intervals Left axis deviation Normal ST segments - Medical Decision Making Patient is evaluated for abdominal pain as well as nausea and vomiting. She does have a history of gastroparesis and cyclic vomiting syndrome. Her abdomen is soft and nontender. No CVA tenderness. Urinalysis is consistent with UTI. No acute intra-abdominal pathology is found. No signs of pancreatitis, SANGEETHA or other acute laboratory abnormalities. Patient does not have any further vomiting while in the emergency room. Patient is started on Keflex given first dose in the emergency room. She is given IV fluids, morphine and Zofran in the ER. Urine culture sent. Patient be placed on a 10-day course of Keflex given her left upper quadrant pain and possibility for early pyelonephritis despite normal white blood cell count and no fever. Patient is counseled on signs and symptoms requiring return to the emergency room. Patient verbalizes agreement and understand this plan. Patient discharged home in stable and improved condition. ED Disposition - Plan for ED Patient: Disposition: Home or Assisted Living Diagnosis: UTI (urinary tract infection), Nausea & vomiting Instructions: ED CYSTITIS Female Adult Prescriptions: Cephalexin [Keflex] 500 mg PO BID #28 cap Transmission Status: Pending to [id number] Referrals: Devan Parks MD [Primary Care Provider] -
[2020-01-22] MEDS: Ondansetron 4 MG/2 ML Vial IV (11:50)
[2020-01-22] MEDS: 0.9% Normal Saline 1,000 ML 1000 ML IV (11:50)
[2020-01-22] MEDS: morphine 8 MG/ML Syringe 6 MG IV (11:50)
[2020-01-22 12:08] LABS: Absolute Lymphocyte Count 1.72 X10^3/uL (0.83-4.51); Absolute Neutrophil Count 8.6 X10^3/uL (2.0-7.7); Basophil# 0.07 X10^3/uL; Basophil% 0.6 % (0-1); Eosinophil# 0.24 X10^3/uL; Eosinophils% 2.1 % (0-5); Hematocrit 41.2 % (37-47); Lymphocyte # 1.72 X10^3/ul (4.0); Mean Corp Hgb Conc 31.6 g/dL (32-36); Mean Corpuscular Hgb 27.9 pg (27.0-32.0); Mean Corpuscular Volume 88.4 fL (81-99); Mean Platelet Vol. 10.1 fl (6.2-12.0); Monocyte# 0.75 X10^3/uL; Monocyte% 6.6 % (0-10); NRBC Flagged by Analyzer 0 % (0-5); Neutrophil # 8.63 X10^3/uL (2.7-7.7); Neutrophil % 75.4 % (47-70); Platelet Count 251 K/mm3 (150-450); RBC Distribution Width CV 13.7 % (11.6-14.6); Red Blood Count 4.66 M/mm3 (4.2-5.4); White Blood Count 11.4 K/mm3 (4.4-11.0)
[2020-01-22 12:16] LABS: Mucous, Urine 0 SEEN /hpf (<or=2+); Red Blood Cells-Urine 0 SEEN /hpf (0-5); Squamous Epithelial Cells - UA 0 SEEN /hpf (5-10)
[2020-01-22 12:17] LABS: Color, Urine Yellow (Yellow); Glucose, Dipstick 1000 mg/dl (Normal); Ketone-Dipstick Negative (Negative); Leukocyte Esterase-Dipstick 500 /ul (Negative); Nitrite-Dipstick Positive (Negative); Occult Blood-Urine 10 /ul (Negative); Protein-Dipstick Negative (Negative); Urine Bilirubin Dipstick Negative (Negative); Urine Clarity Clear (Clear); Urine Urobilinogen Normal (Normal)
[2020-01-22 12:30] LABS: Bacteria 2+ /hpf (None Seen); White Blood Cells 0-5 SEEN /hpf (0-5)
[2020-01-22 12:34] LABS: ALB/GLOB Ratio 0.8 RATIO (0.9-2.4); AST(SGOT) 22 U/L (15-37); Alanine Aminotransfer ALT/SGPT 29 U/L (13-56); Albumin, Serum 3.2 g/dL (3.2-5.0); Alkaline Phosphatase 171 U/L (45-117); Anion Gap 7 (5-15); BUN 14 mg/dL (7-18); BUN/Creat Ratio 12.6 RATIO (10-20); Calcium,Total 9.1 mg/dL (8.5-10.1); Chloride 101 mmol/L (98-107); Creatinine, Serum 1.11 mg/dL (0.55-1.02); EST Glomerular Filtration Rate 52 mL/min (>60); Est Glom Filt Rate - Afr Amer 63 mL/min (>60); Globulin 4.1 g/dL (2.2-4.2); Glucose 341 mg/dL (74-106); Lipase 97 U/L (73-393); Potassium 4.3 mmol/L (3.5-5.1); Protein, Total 7.3 g/dL (6.4-8.2); Sodium Level 136 mmol/L (136-145)
[2020-01-22] MEDS: Cephalexin 250 MG Capsule 500 MG PO (15:23)
[2020-01-22 15:27] VITALS: BP 152/72; PULSE 72; RESP 18; TEMP 36.8; O2SAT 96
--- OUTSIDE RECORDS SUMMARY | 2020-06-05 08:26 | XMS RPT_ITS | CCD ---
:1955 External Reference #:[id number] Author Organization [facility] Care Team Providers Name Role Phone [...] S Unavailable Unavailable SHAHEEN (RN) Unavailable Unavailable [facility] Clinical [facility] Attending Unavailable Rui Parks Primary Care Provider Allergies Reported Allergen Reaction(s) Severity Date of Location Onset ciprofloxacin Rash Unknown, 06-10-2013 - [facility] Translations: [ Moderate Other [place] CIPROFLOXACIN, Repository CIPROFLOXACIN, CIPROFLOXACIN] cyclobenzaprine Rash Unknown, 06-10-2013 - [facility] Translations: [ Moderate Other [place] CYCLOBENZAPRINE, Repository CYCLOBENZAPRINE, CYCLOBENZAPRINE] ketorolac Translations: Other: See Unknown, High 03-22-2006 - [facility] [ KETOROLAC, KETOROLAC, Comments Ot r [place] KETOROLAC] Repository metFORMIN Translations: Other: See 06-28-2017 - [facility] [ METFORMIN, METFORMIN, Comments Ot r [place] METFORMIN] Repository Sulfamethoxazole / Hives Unknown, High 07-31-2017 - [facility] Trimethoprim Main [place] Translations: [ Repository SULFAMETHOXAZOLE-TRIMET HOPRIM] OTHER Translations: [ 05-27-2007 - [facility] OTHER, OTHER, OTHER] Other C ampus Repository Medications Medication Name Sig Date Prescriber Location Allopurinol allopurinol (ZYLOPRIM) [facility] Provider [facility] 100 mg tablet Take 100 Provider (4419 5) mg by mouth once daily. 0 Active Comment: Take 100 mg by mouth once da jeffy. Aspirin aspirin, enteric coated Ccf Provider [facility] (78542) (ASPIRIN, ENTERIC COATED) Provider 81 mg EC tablet Take 81 mg by mouth once daily. 0 Active Comment: Take 81 mg by mouth once [place]. Haloperidol haloperidol (HALDOL) 0.5 [facility] Provider [facility] mg tablet Take 0.5 mg by Provider (26 195) mouth twice daily. 0 Active Comment: Take 0.5 mg by mouth twice d aily. HYDROCODONE HYDROCODONE [facility] Provider [facility] linic BIT/ACETAMINOPHEN BIT/ACETAMINOPHEN Provider (7119 5) (VICODIN ORAL) (VICODIN ORAL) Take by mouth. 0 Active Comment: Take by mouth. insulin degludec INSULIN DEGLUDEC (TRESIBA Ccf Provide r [facility] FLEXTOUCH U-100 Provider (43980) SUBCUTANEOUS) Inject 120 mg subcutaneously once daily. 0 Active Comment: Inject 120 mg subcutaneously once daily. lamoTRIgine lamoTRIgine (LAMICTAL) 100 [facility] Provider [facility] mg tablet Take 100 mg by Provider (85 340) mouth twice daily. 0 Active Comment: Take 100 mg by mouth twice d aily. levothyroxine Levothyroxine 50 mcg cap [facility] Provider [facility] Take by mouth once daily. Provider (8 4772) 0 Active Comment: Take by mouth once daily. Methadone methadone (DOLOPHINE) 5 mg [facility] Provider [facility] (03770) tablet Take 10 mg by mouth Provider once daily. At bedtime 0 Active Comment: Take 10 mg by mouth once [place]. At bedtime montelukast montelukast (SINGULAIR) 10 [facility] Provider [facility] mg tablet Take 10 mg by Provider (501 95) mouth daily at bedtime. 0 Active Comment: Take 10 mg by mouth daily at bedtime. Morphine morphine IR 15 mg tablet [facility] Provider [facility] (51036) Take 15 mg by mouth every Provider 4 hours as needed. 0 Active Comment: Take 15 mg by mouth every 4 hours as needed. naloxegol naloxegol (MOVANTIK) 25 mg [facility] Provider [facility] (11385) tablet Take 25 mg by mouth Provider once daily. 0 Active Comment: Take 25 mg by mouth once [place]. Omeprazole Omeprazole 40 mg capsule [facility]cf Provider [facility] (05694) Take 40 mg by mouth once Provider daily. 0 Active Comment: Take 40 mg by mouth once sctoty ly. Ondansetron ondansetron orally 03-03-2018 [facility] disintegrating (ZOFRAN [facility] (4 6388) ODT) 8 mg disintegrating tablet Take 1 tablet by mouth every 8 hours as needed. 90 tablet 6 03/03/2018 Active Comment: Take 1 tablet by mouth every 8 hours as needed. pregabalin pregabalin (LYRICA) 75 mg [facility] Provider [facility] (27388) capsule Take 150 mg by Provider mouth twice daily. 0 Active Comment: Take 150 mg by mouth twice d aily. Promethazine promethazine (PHENERGAN) 12-18-2017 [facility] 25 mg tablet Take 1 (20965) tablet by mouth every 8 hours as needed (for nausea). 90 tablet 6 12/18/2017 Active promethazine (PHENERGAN) 25 mg tablet Take 25 [facility] (66166) mg by mouth three times daily. 0 Active Comment: Take 25 mg by mouth three ti mes daily. Take 1 tablet by mouth every 8 hours as needed (for nausea). rOPINIRole rOPINIRole 1 mg tablet [facility] Provider [facility] (12435) Take 1 mg by mouth once Provider daily. 0 Active Comment: Take 1 mg by mouth once alicia y. Sertraline sertraline (ZOLOFT) 100 [facility] Provider [facility] (06572) mg tablet Take 100 mg by Provider mouth once daily. 0 Active Comment: Take 100 mg by mouth once da jeffy. Simvastatin simvastatin 40 mg tablet [facility] Provider [facility] Take 40 mg by mouth daily Provider (4 7468) at bedtime. 0 Active Comment: Take 40 mg by mouth daily at bedtime. valsartan valsartan (DIOVAN) 80 mg [facility] Provider [facility] (66828) tablet Take 80 mg by Provider mouth once daily. 0 Active Comment: Take 80 mg by mouth once scotty ly. Problems Active Problems Category Problem Name Status Date Location Unclassified Active 08-31-2018 - [facility] [place] ([address]99) Unclassified Unknown / UNK(Unknown) Active 07-19-2017 - [facility] (22612) Past or Other Problems Category Problem Name Status Date Location Nausea and vomiting Nausea with vomiting, Completed 02-17-2015 - [facility] (24093) Other disorders of [facility]astrop[facility] stomach and duodenum [facility] (58729) Other gastrointestinal Diarrhea Completed 05-27-2007 - [facility] disorders (39161) Other nervous system Other disorders of Completed 12-31-2017 - [facility] disorders nervous system [facility] (00 000) Tuberculosis Nodular tuberculosis Com[facility]-2007 [facility] (49898[facility] Results Result Name Value Range Unit Interpretation Flag Date Location cmp on 2020-05-19 Albumin [Mass/Vol] 3.3 3.4-4.8 G/dL Low 05-19-2020 [facility] (87753) Comment: Performed By: #### GFR, BMP, PBNP, TROP #### [address] [address] #### ANEU, ADIFF, CBC #### [address] [address] Albumin/Globulin [Mass ratio] 0.8 1.1-2.5 ratio Low 05-19-2020 [facility] (70154) Comment: Performed By: #### GFR, BMP, PBNP, TROP #### [address] [address] #### ANEU, ADIFF, CBC #### [address] [address] ALP [Catalytic activity/Vol] 194 40-135 U/L High 1 [facility] (0000 0) Comment: Performed By: #### GFR, BMP, PBNP, TROP #### [address] [address] #### ANEU, ADIFF, CBC #### [address] [address] ALT [Catalytic activity/Vol] 27 14-59 U/L Normal 1 [facility] (0000 0) Comment: Performed By: #### GFR, BMP, PBNP, TROP #### [place] [address] #### ANEU, ADIFF, CBC #### [address] [address] AST [Catalytic activity/Vol] 18 10-40 U/L Normal 1 [facility] (0000 0) Comment: Performed By: #### GFR, BMP, PBNP, TROP #### [place] [address] #### ANEU, ADIFF, CBC #### [address] [address] Bili Total 0.7 0.2-1.0 mg/dL Normal 05-19-2020 [facility] (07944) Comment: Result Comment: Use of this assay is not recommended for patients undergoing treatment with eltrombopag d ue to the potential for falsely elevated results. Performed By: #### GFR, BMP, PBNP, TROP #### [place] [address] #### ANEU, ADIFF, CBC #### [address] [address] Calcium [Mass/Vol] 9.5 8.4-10.2 mg/dL Normal 05-19-2020 [facility] (0000 0) Comment: Performed By: #### GFR, BMP, PBNP, TROP #### [place] [address] #### ANEU, ADIFF, CBC #### [address] [address] Chloride [Moles/Vol] 99 98-107 mmol/L Normal 0 [facility] (0000 0) Comment: Performed By: #### GFR, BMP, PBNP, TROP #### [address] [address] #### ANEU, ADIFF, CBC #### [address] [address] CO2 [Moles/Vol] 27 23-31 mmol/L Normal 05-19-2020 [facility] ([place] (03860) Comment: Performed By: #### GFR, BMP, PBNP, TROP #### [place] [address] #### ANEU, ADIFF, CBC #### [address] [address] Creatinine [Mass/Vol] 1.21 0.55-1.02 mg/dL High 05-19-20 [facility] (0000 0) Comment: Performed By: #### GFR, BMP, PBNP, TROP #### [place] [address] #### ANEU, ADIFF, CBC #### [address] [address] Electrolyte Balance 9.0 mEq/L Normal 05-19-2020 [facility] (11706) Comment: Performed By: #### GFR, BMP, PBNP, TROP #### [place] [address] #### ANEU, ADIFF, CBC #### [address] [address] Globulin (S) [Mass/Vol] 3.9 G/dL Normal 2019 [facility] (94049) Comment: Performed By: #### GFR, BMP, PBNP, TROP #### [place] [address] #### ANEU, ADIFF, CBC #### [address] [address] Glucose [Mass/Vol] 311 80-115 mg/dL High 05-19-2020 [facility] (63420) Comment: Performed By: #### GFR, BMP, PBNP, TROP #### [place] [address] #### ANEU, ADIFF, CBC #### [address] [address] Potassium [Moles/Vol] 4.8 3.5-5.1 mmol/L Normal 05-19-20 [facility] (0000 0) Comment: Performed By: #### GFR, BMP, PBNP, TROP #### [place] [address] #### ANEU, ADIFF, CBC #### [address] [address] Protein [Mass/Vol] 7.2 6.4-8.2 G/dL Normal 05-19-2020 [facility] (59626) Comment: Performed By: #### GFR, BMP, PBNP, TROP #### [place] [address] #### ANEU, ADIFF, CBC #### [address] [address] Sodium [Moles/Vol] 135 136-145 mmol/L Low 05-19-2020 [facility] (21357) Comment: Performed By: #### GFR, BMP, PBNP, TROP #### [place] [address] #### ANEU, ADIFF, CBC #### [address] [address] Urea nitrogen [Mass/Vol] 18 7-18 mg/dL Normal 05-19 [facility] (0000 0) Comment: Performed By: #### GFR, BMP, PBNP, TROP #### [place] [address] #### ANEU, ADIFF, CBC #### [address] [address] Urea nitrogen/Creatinine [Mass 15 7-27 ratio Normal 05-19-2020 [facility]] [facility] [place] (11637) Comment: Performed By: #### GFR, BMP, PBNP, TROP #### [address] [address] #### ANEU, ADIFF, CBC #### [address] [address] a1c on 2020-05-19 HbA1c (Bld) [Mass fraction] 9.2 4.3-6.4 % High [facility] (0000 0) Comment: Performed By: #### GFR, BMP, PBNP, TROP #### [place] [address] #### ANEU, ADIFF, CBC #### [address] [address] .gfr on 2020-05-19 GFR 54 ml/min/1.73sqm Normal [facility] (0000 0) Comment: Result Comment: GFR Population mean for Afri can E[place]an, Non- Americans Ages 20-29 = 116 mL/min/1.73 [...] By: #### GFR, BMP, PBNP, TROP #### [address] [address] #### ANEU, ADIFF, CBC #### [address] [address] GFR Non- 45 ml/min/1.73sqm Normal 05-19-2020 [facility] (37577) Comment: Result Comment: GFR Population mean for Afri can E[place]an, Non- Americans Ages 20-29 = 116 mL/min/1.73 [...] By: #### GFR, BMP, PBNP, TROP #### [place] [address] #### ANEU, ADIFF, CBC #### [address] [address] bmp on 2020-03-21 Calcium [Mass/Vol] 9.6 8.4-10.2 mg/dL Normal 03-21-2020 [facility] (0000 0) Comment: Performed By: #### GFR, BMP, PBNP, TROP #### [place] [address] #### ANEU, ADIFF, CBC #### [address] [address] Chloride [Moles/Vol] 96 98-107 mmol/L Low 0 [facility] (42287) Comment: Performed By: #### GFR, BMP, PBNP, TROP #### [place] [address] #### ANEU, ADIFF, CBC #### [address] [address] CO2 [Moles/Vol] 27 23-31 mmol/L Normal 03-21-2020 [facility] ([place] (21839) Comment: Performed By: #### GFR, BMP, PBNP, TROP #### [place] [address] #### ANEU, ADIFF, CBC #### [address] [address] Creatinine [Mass/Vol] 1.42 0.55-1.02 mg/dL High 03-21-20 20 [facility] (0000 0) Comment: Performed By: #### GFR, BMP, PBNP, TROP #### [place] [address] #### ANEU, ADIFF, CBC #### [address] [address] Electrolyte Balance 11.0 mEq/L Normal 03-21-2020 [facility] (59971) Comment: Performed By: #### GFR, BMP, PBNP, TROP #### [place] [address] #### ANEU, ADIFF, CBC #### [address] [address] Glucose [Mass/Vol] 397 80-115 mg/dL High 03-21-2020 [facility] (72078) Comment: Performed By: #### GFR, BMP, PBNP, TROP #### [place] [address] #### ANEU, ADIFF, CBC #### [address] [address] Potassium [Moles/Vol] 4.8 3.5-5.1 mmol/L Normal 03-21-20 20 [facility] (0000 0) Comment: Performed By: #### GFR, BMP, PBNP, TROP #### [place] [address] #### ANEU, ADIFF, CBC #### [address] [address] Sodium [Moles/Vol] 134 136-145 mmol/L Low 03-21-2020 [facility] (17483) Comment: Performed By: #### GFR, BMP, PBNP, TROP #### [place] [address] #### ANEU, ADIFF, CBC #### [address] [address] Urea nitrogen [Mass/Vol] 18 7-18 mg/dL Normal 03-21 [facility] (0000 0) Comment: Performed By: #### GFR, BMP, PBNP, TROP #### [address] [address] #### ANEU, ADIFF, CBC #### [address] [address] Urea nitrogen/Creatinine [Mass 13 7-27 ratio Normal 03-21-2020 [facility]] [facility] ([place] (53491) Comment: Performed By: #### GFR, BMP, PBNP, TROP #### [address] [address] #### ANEU, ADIFF, CBC #### [address] [address] .gfr on 2020-03-21 GFR 45 ml/min/1.73sqm Normal 08 [facility] (0000 0) Comment: Result Comment: GFR Population mean for Afri can E[place]an, Non- Americans Ages 20-29 = 116 mL/min/1.73 [...] By: #### GFR, BMP, PBNP, TROP #### [address] [address] #### ANEU, ADIFF, CBC #### [address] [address] GFR Non- 37 ml/min/1.73sqm Normal 03-21-2020 [facility] (23490) Comment: Result Comment: GFR Population mean for Afri can E[place]an, Non- Americans Ages 20-29 = 116 mL/min/1.73 [...] By: #### GFR, BMP, PBNP, TROP #### [facility] [address] [place] [address] #### ANEU, ADIFF, CBC #### [place] [id number] [place], [place] [address] nm bone imaging whole body on 2020-03-01 NM BONE IMAGING ORIGINAL Normal 03-01-2020 [facility] WHOLE BODY EXAM: NM BONE IMAGING WHOLE BODY 02/29/2020 1:37 PM [facility] ([place] ([id number]) HISTORY: LEFT posterior late ral ribs/chest wall [...] lund on 2020-02-26 AISLINN . Normal 02-26-2020 [facility] MICRO - Microbiology [facility] ([place] (73243) PROCEDURE: Urine Culture [*1] SOURCE: Urine, Clean Catch BODY SITE: COLLECTED DATE/TIME: 02/24/2020 22:39 EDT RECEIVED DATE/TIME: 02/25/2020 15:49 EDT START DATE/TIME: 02/25/2020 15:49 EDT FREE TEXT SOURCE: FINAL REPORTS Final Report [] Verified Date/Time/Personnel: 02/26/2020 14:46 EDT 10,000 - 50,000 cfu/ml Multiple bacterial morphotypes present. Probable Contamination. Suggest recollection if clinically indicated. Performing Locations *1: This test was performed at: [address], [address] , [place] Comment: Performed By: #### GFR, BMP, PBNP, TROP #### [address] [address] #### ANEU, ADIFF, CBC #### [address] [address] ua on 2020-02-25 Color (U) Yellow Normal 02-25-2020 [facility] ([facility] (21638) Comment: Performed By: #### GFR, BMP, PBNP, TROP #### [address] [address] #### ANEU, ADIFF, CBC #### [address] [address] Glucose (U) [Mass/Vol] 500 Negative mg/dL Abnormal 020 [facility] (07576) Comment: Performed By: #### GFR, BMP, PBNP, TROP #### [address] [address] #### ANEU, ADIFF, CBC #### [address] [address] Ketones Ql (U) Negative Negative Normal 02-25-2020 [facility] ([place] (97296) Comment: Performed By: #### GFR, BMP, PBNP, TROP #### [address] [address] #### ANEU, ADIFF, CBC #### [address] [address] UA Appear Clear Clear Normal 02-25-2020 [facility] ([place]) (44591) Comment: Performed By: #### GFR, BMP, PBNP, TROP #### [place] [address] #### ANEU, ADIFF, CBC #### [address] [address] UA Blood Trace Negative Abnormal 02-25-2020 [facility] ([place] (29300) Comment: Performed By: #### GFR, BMP, PBNP, TROP #### [place] [address] #### ANEU, ADIFF, CBC #### [address] [address] UA Leuk Est Negative Negative Normal 02-25-2020 [facility] ([place] (64788) Comment: Performed By: #### GFR, BMP, PBNP, TROP #### [place] [address] #### ANEU, ADIFF, CBC #### [address] [address] UA Nitrite Negative Negative Normal 02-25-2020 [facility] ([place] (59124) Comment: Performed By: #### GFR, BMP, PBNP, TROP #### [place] [address] #### ANEU, ADIFF, CBC #### [address] [address] UA pH 7.0 5.0 - 8.0 Normal 02-25-2020 [facility] ([place] (68880) Comment: Performed By: #### GFR, BMP, PBNP, TROP #### [place] [address] #### ANEU, ADIFF, CBC #### [address] [address] UA Protein Trace Negative Normal 02-25-2020 [facility] ([place] (92782) Comment: Performed By: #### GFR, BMP, PBNP, TROP #### [place] [address] #### ANEU, ADIFF, CBC #### [address] [address] UA Spec Grav 1.020 1.015-1.025 Normal 02-25-2020 [facility] ([place] (98200) Comment: Performed By: #### GFR, BMP, PBNP, TROP #### [place] [address] #### ANEU, ADIFF, CBC #### [address] [address] UA Specimen Type Clean Catch Normal 02-25-2020 [facility] ([place] (33995) Comment: Performed By: #### GFR, BMP, PBNP, TROP #### [place] [address] #### ANEU, ADIFF, CBC #### [address] [address] UA Urobilinogen 0.2 0.2-1.0 E.U./dL Normal 02-25-2020 [facility] ([place] (31348) Comment: Performed By: #### GFR, BMP, PBNP, TROP #### [place] [address] #### ANEU, ADIFF, CBC #### [address] [address] Urobilinogen Qn (U) Negative Negative Normal 02-25-2020 [facility] ([place] (0000 0) Comment: Performed By: #### GFR, BMP, PBNP, TROP #### [address] [address] #### ANEU, ADIFF, CBC #### [address] [address] trop on 2020-02-25 Troponin I.cardiac <0.020 0.000-0.040 ng/mL Normal 0 [facility] [Mass/Vol] [facility] ([place] (10784) Comment: Result Comment: Troponin I r eference range: 0.00-0.040 ng/mL Negative an d non-diagnostic. >0.040 ng/mL Consistent with cardiac damage, increased clinical risk and possibility of myocardial in farction. Serial measurements, a rise & fall in test results, clinical histo ry, appropriate symptoms and/or ECG changes may help assess possibility of [place]. *Other non-acute coronary sy ndrome conditions such as CHF, myoc arditis, pulmonary emboli, sepsis and cardiac surgery could result in myoc ardial damage and increased troponi n levels. Performed By: #### GFR, BMP, PBNP, TROP #### [place] [address] #### ANEU, ADIFF, CBC #### [address] [address] phv on 2020-02-25 pH Venous 7.39 7.31-7.41 Normal 02-25-2020 [facility] ([place]) (00484) Comment: Performed By: #### GFR, BMP, PBNP, TROP #### [place] [address] #### ANEU, ADIFF, CBC #### [address] [address] lip on 2020-02-25 Lipase Level 76 73-393 U/L Normal 02-25-2020 [facility] ([place]) (96123) Comment: Performed By: #### GFR, BMP, PBNP, TROP #### [place] [address] #### ANEU, ADIFF, CBC #### [address] [address] cmp on 2020-02-25 Albumin [Mass/Vol] 3.6 3.4-4.8 G/dL Normal 02-25-2020 [facility] ([place] (81014) Comment: Performed By: #### GFR, BMP, PBNP, TROP #### [place] [address] #### ANEU, ADIFF, CBC #### [address] [address] Albumin/Globulin [Mass ratio] 1.0 1.1-2.5 ratio Low 02-25-2020 [facility] ([place] (78390) Comment: Performed By: #### GFR, BMP, PBNP, TROP #### [place] [address] #### ANEU, ADIFF, CBC #### [address] [address] ALP [Catalytic activity/Vol] 192 40-135 U/L High 0 02-25-2020 [facility] ([place] (0000 0) Comment: Performed By: #### GFR, BMP, PBNP, TROP #### [place] [address] #### ANEU, ADIFF, CBC #### [address] [address] ALT [Catalytic activity/Vol] 21 10-35 U/L Normal 0 02-25-2020 [facility] ([place] (0000 0) Comment: Performed By: #### GFR, BMP, PBNP, TROP #### [place] [address] #### ANEU, ADIFF, CBC #### [address] [address] AST [Catalytic activity/Vol] 14 10-40 U/L Normal 0 02-25-2020 [facility] ([place] (0000 0) Comment: Performed By: #### GFR, BMP, PBNP, TROP #### [place] [address] #### ANEU, ADIFF, CBC #### [address] [address] Bili Total 1.0 0.2-1.0 mg/dL Normal 02-25-2020 [facility] ([place] (86990) Comment: Result Comment: Use of this assay is not recommended for patients undergoing treatment with eltrombopag d ue to the potential for falsely elevated results. Performed By: #### GFR, BMP, PBNP, TROP #### [place] [address] #### ANEU, ADIFF, CBC #### [address] [address] Calcium [Mass/Vol] 9.6 8.4-10.2 mg/dL Normal 02-25-2020 [facility] ([place] (0000 0) Comment: Performed By: #### GFR, BMP, PBNP, TROP #### [place] [address] #### ANEU, ADIFF, CBC #### [address] [address] Chloride [Moles/Vol] 97 98-107 mmol/L Low 0 [facility] ([place] (69421) Comment: Performed By: #### GFR, BMP, PBNP, TROP #### [place] [address] #### ANEU, ADIFF, CBC #### [address] [address] CO2 [Moles/Vol] 34 23-31 mmol/L High 02-25-2020 [facility] ([place] (20498) Comment: Performed By: #### GFR, BMP, PBNP, TROP #### [place] [address] #### ANEU, ADIFF, CBC #### [address] [address] Creatinine [Mass/Vol] 1.31 0.55-1.02 mg/dL High 02-25-20 20 [facility] ([place] (0000 0) Comment: Performed By: #### GFR, BMP, PBNP, TROP #### [place] [address] #### ANEU, ADIFF, CBC #### [address] [address] Electrolyte Balance 4.0 mEq/L Normal 02-25-2020 [facility] ([place] (67672) Comment: Performed By: #### GFR, BMP, PBNP, TROP #### [place] [address] #### ANEU, ADIFF, CBC #### [address] [address] Globulin (S) [Mass/Vol] 3.6 G/dL Normal 2019 [facility] (74985) Comment: Performed By: #### GFR, BMP, PBNP, TROP #### [place] [address] #### ANEU, ADIFF, CBC #### [address] [address] Glucose [Mass/Vol] 428 80-115 mg/dL Critically abnormal 0 02-25-2020 [facility] (49159) Comment: Performed By: #### GFR, BMP, PBNP, TROP #### [place] [address] #### ANEU, ADIFF, CBC #### [address] [address] Potassium [Moles/Vol] 4.8 3.5-5.1 mmol/L Normal 02-25-20 [facility] ([place] (0000 0) Comment: Performed By: #### GFR, BMP, PBNP, TROP #### [place] [address] #### ANEU, ADIFF, CBC #### [address] [address] Protein [Mass/Vol] 7.2 6.4-8.2 G/dL Normal 02-25-2020 [facility] (08674) Comment: Performed By: #### GFR, BMP, PBNP, TROP #### [place] [address] #### ANEU, ADIFF, CBC #### [address] [address] Sodium [Moles/Vol] 135 136-145 mmol/L Low 02-25-2020 [facility] (66299) Comment: Performed By: #### GFR, BMP, PBNP, TROP #### [place] [address] #### ANEU, ADIFF, CBC #### [address] [address] Urea nitrogen [Mass/Vol] 17 7-18 mg/dL Normal 02-24 [facility] ([place] (0000 0) Comment: Performed By: #### GFR, BMP, PBNP, TROP #### [place] [address] #### ANEU, ADIFF, CBC #### [address] [address] Urea nitrogen/Creatinine [Mass 13 7-27 ratio Normal 02-25-2020 [facility] ratio] [facility] ([place]) (67526) Comment: Performed By: #### GFR, BMP, PBNP, TROP #### [place] [address] #### ANEU, ADIFF, CBC #### [address] [address] cbc on 2020-02-25 Erythrocyte distribution 14.8 11.5-14.5 % High 02-24 [facility] width (RBC) [Ratio] ([place]) (29737) Comment: Performed By: #### GFR, BMP, PBNP, TROP #### [place] [address] #### ANEU, ADIFF, CBC #### [address] [address] Hematocrit (Bld) [Volume 40.2 37.0-47.0 % Normal 02-24 [facility] [facility] fraction] ([place]) (0000 0) Comment: Performed By: #### GFR, BMP, PBNP, TROP #### [place] [address] #### ANEU, ADIFF, CBC #### [address] [address] Hemoglobin (Bld) 13.2 12.0-16.0 G/dL Normal 02-25-2020 [facility] [Mass/Vol] [facility] [facility] ([place]) ([id number]) Comment: Performed By: #### GFR, BMP, PBNP, TROP #### [place] [address] #### ANEU, ADIFF, CBC #### [address] [address] MCH (RBC) [Entitic mass] 27.7 27.0-31.2 pg Normal 02-24 [facility] ([place]) (0000 0) Comment: Performed By: #### GFR, BMP, PBNP, TROP #### [place] [address] #### ANEU, ADIFF, CBC #### [address] [address] MCHC (RBC) [Mass/Vol] 32.8 33.0-37.0 G/dL Low 02-25-20 [facility] ([place]) (0000 0) Comment: Performed By: #### GFR, BMP, PBNP, TROP #### [place] [address] #### ANEU, ADIFF, CBC #### [address] [address] MCV (RBC) [Entitic vol] 84.5 80.0-94.0 fL Normal 2019 [facility] ([place]) (0000 0) Comment: Performed By: #### GFR, BMP, PBNP, TROP #### [place] [address] #### ANEU, ADIFF, CBC #### [address] [address] Platelet mean volume 8.1 7.4-10.4 fL Normal 0 [facility] (Bld) [Entitic vol] ([place]) (46026) Comment: Performed By: #### GFR, BMP, PBNP, TROP #### [place] [address] #### ANEU, ADIFF, CBC #### [address] [address] Platelets (Bld) [#/Vol] 265 130-400 10 3/mcL Normal 2019 [facility] ([place]) (78915) Comment: Performed By: #### GFR, BMP, PBNP, TROP #### [place] [address] #### ANEU, ADIFF, CBC #### [address] [address] RBC (Bld) [#/Vol] 4.76 4.20-5.40 10 6/mcL Normal 02-25-2020 [facility] ([place]) (0000 0) Comment: Performed By: #### GFR, BMP, PBNP, TROP #### [place] [address] #### ANEU, ADIFF, CBC #### [address] [address] WBC (Bld) [#/Vol] 11.20 4.60-10.80 10 3/mcL High 02-25-2020 [facility] ([place]) (0000 0) Comment: Performed By: #### GFR, BMP, PBNP, TROP #### [place] [address] #### ANEU, ADIFF, CBC #### [address] [address] isis on 2020-02-25 Acetone (s) Negative Negative Normal 02-25-2020 [facility] ([place] (47071) Comment: Performed By: #### GFR, BMP, PBNP, TROP #### [place] [address] #### ANEU, ADIFF, CBC #### [address] [address] .neuabs on Neutrophils (Bld) 8.50 2.85-6.16 10 3/mcL High 02-25-2020 [facility] [#/Vol] [facility] ([place]) (68059) Comment: Performed By: #### GFR, BMP, PBNP, TROP #### [address] [address] #### ANEU, ADIFF, CBC #### [address] [address] .gfr on 2020-02-25 GFR 49 ml/min/1.73sqm Normal [facility] ([place] (0000 0) Comment: Result Comment: GFR Population mean for Afri can E[place]an, Non- Americans Ages 20-29 = 116 mL/min/1.73 [...] By: #### GFR, BMP, PBNP, TROP #### [address] [address] #### ANEU, ADIFF, CBC #### [address] [address] GFR Non- 41 ml/min/1.73sqm Normal 02-25-2020 [facility] ([place] ([id number]) Comment: Result Comment: GFR Population mean for Afri can E[place]an, Non- Americans Ages 20-29 = 116 mL/min/1.73 [...] By: #### GFR, BMP, PBNP, TROP #### [place] [address] #### ANEU, ADIFF, CBC #### [address] [address] .auto diff on 02-24 Ammonia (P) [Mass/Vol] 0.80 0.15-1.00 10 3/mcL Normal 020 [facility] ([place] (76660) Comment: Performed By: #### GFR, BMP, PBNP, TROP #### [place] [address] #### ANEU, ADIFF, CBC #### [address] [address] Basophils (Bld) 0.10 0.00-0.19 10 3/mcL Normal 02-25-2020 [facility] [#/Vol] [facility] [place] (90550) Comment: Performed By: #### GFR, BMP, PBNP, TROP #### [place] [address] #### ANEU, ADIFF, CBC #### [address] [address] Basophils/100 WBC (Bld) 0.6 0.0-2.5 % Normal 2019 [facility] ([place] (0000 0) Comment: Performed By: #### GFR, BMP, PBNP, TROP #### [place] [address] #### ANEU, ADIFF, CBC #### [address] [address] Eosinophils (Bld) 0.30 0.00-0.40 10 3/mcL Normal 02-25-2020 [facility] [#/Vol] [facility] ([place] (01233) Comment: Performed By: #### GFR, BMP, PBNP, TROP #### [place] [address] #### ANEU, ADIFF, CBC #### [address] [address] Eosinophils/100 WBC (Bld) 2.4 0.0-7.0 % Normal 070 [facility] ([place]) (0000 0) Comment: Performed By: #### GFR, BMP, PBNP, TROP #### [place] [address] #### ANEU, ADIFF, CBC #### [address] [address] Lymphocytes (Bld) 1.60 0.77-3.85 10 3/mcL Normal 02-25-2020 [facility] [#/Vol] [facility] ([place]) (12982) Comment: Performed By: #### GFR, BMP, PBNP, TROP #### [place] [address] #### ANEU, ADIFF, CBC #### [address] [address] Lymphocytes/100 WBC (Bld) 14.6 10.0-50.0 % Normal [facility] ([place]) (96392) Comment: Performed By: #### GFR, BMP, PBNP, TROP #### [place] [address] #### ANEU, ADIFF, CBC #### [address] [address] Monocytes/100 WBC (Bld) 6.8 1.7-13.0 % Normal 2019 [facility] ([place]) (0000 0) Comment: Performed By: #### GFR, BMP, PBNP, TROP #### [place] [address] #### ANEU, ADIFF, CBC #### [address] [address] Neutrophils/100 WBC (Bld) 75.6 37.0-80.0 % Normal [facility] ([place] (16703) Comment: Performed By: #### GFR, BMP, PBNP, TROP #### [place] [address] #### ANEU, ADIFF, CBC #### [address] [address] vidh on 2020-02-24 Vit. D 25-Hydroxy 24 ng/mL Normal 02-24-2020 [facility] [place] (28936) Comment: Result Comment: Interpretive Values Based on Total 25(OH)D: Severe Deficiency <20 ng/mL Mild to Moderate Deficiency 20-30 ng/mL Optimum Levels 30-100 ng/mL Toxicity Possible >100 ng/mL Performed By: #### GFR, BMP, PBNP, TROP #### [place] [address] #### ANEU, ADIFF, CBC #### [address] [address] uric on 2020-02-24 Uric Acid Lvl 4.7 2.6-6.2 mg/dL Normal 02-24-2020 [facility] ([place]) (86511) Comment: Performed By: #### GFR, BMP, PBNP, TROP #### [place] [address] #### ANEU, ADIFF, CBC #### [address] [address] tsh on 2020-02-24 TSH Qn 2.13 0.36-3.74 mcIU/mL Normal 02-24-2020 [facility] ([place]) (68579) Comment: Performed By: #### GFR, BMP, PBNP, TROP #### [place] [address] #### ANEU, ADIFF, CBC #### [address] [address] lipid on 2020-02-24 Cholesterol [Mass/Vol] 134 0-200 mg/dL Normal 020 [facility] ([place] (0000 0) Comment: Result Comment: Cholesterol Reference Interval: Less than 200 Desirable 200-239 Borderline high risk 240 and above High risk Performed By: #### GFR, BMP, PBNP, TROP #### [place] [address] #### ANEU, ADIFF, CBC #### [address] [address] Cholesterol in HDL 45 40-60 mg/dL Normal 02-24-2020 [facility] [Mass/Vol] ([place]) (000 00) Comment: Performed By: #### GFR, BMP, PBNP, TROP #### [place] [address] #### ANEU, ADIFF, CBC #### [address] [address] Cholesterol in LDL 55 0-130 mg/dL Normal 02-24-2020 [facility] [Mass/Vol] ([place]) (000 00) Comment: Performed By: #### GFR, BMP, PBNP, TROP #### [place] [address] #### ANEU, ADIFF, CBC #### [address] [address] Triglyceride [Mass/Vol] 171 0-150 mg/dL High 2019 [facility] ([place] (0000 0) Comment: Result Comment: Triglyceride Reference Interval: Less than 150 Normal 150-199 Borderline high risk 200-499 High risk 500 or higher Very high risk Performed By: #### GFR, BMP, PBNP, TROP #### [place] [address] #### ANEU, ADIFF, CBC #### [address] [address] ft4 on 2020-02-24 Free T4 [Mass/Vol] 1.37 0.76-1.46 ng/dL Normal 02-24-2020 [facility] ([place]) (0000 0) Comment: Performed By: #### GFR, BMP, PBNP, TROP #### [place] [address] #### ANEU, ADIFF, CBC #### [address] [address] cmp on 2020-02-24 Albumin [Mass/Vol] 3.5 3.4-4.8 G/dL Normal 02-24-2020 [facility] ([place] (39964) Comment: Performed By: #### GFR, BMP, PBNP, TROP #### [place] [address] #### ANEU, ADIFF, CBC #### [address] [address] Albumin/Globulin [Mass ratio] 1.0 1.1-2.5 ratio Low 02-24-2020 [facility] ([place] (68866) Comment: Performed By: #### GFR, BMP, PBNP, TROP #### [place] [address] #### ANEU, ADIFF, CBC #### [address] [address] ALP [Catalytic activity/Vol] 193 40-135 U/L High 0 02-24-2020 [facility] ([place] (0000 0) Comment: Performed By: #### GFR, BMP, PBNP, TROP #### [place] [address] #### ANEU, ADIFF, CBC #### [address] [address] ALT [Catalytic activity/Vol] 22 10-35 U/L Normal 0 02-24-2020 [facility] ([place] (0000 0) Comment: Performed By: #### GFR, BMP, PBNP, TROP #### [place] [address] #### ANEU, ADIFF, CBC #### [address] [address] AST [Catalytic activity/Vol] 16 10-40 U/L Normal 0 02-24-2020 [facility] ([place] (0000 0) Comment: Performed By: #### GFR, BMP, PBNP, TROP #### [place] [address] #### ANEU, ADIFF, CBC #### [address] [address] Bili Total 0.7 0.2-1.0 mg/dL Normal 02-24-2020 [facility] ([place] (88335) Comment: Result Comment: Use of this assay is not recommended for patients undergoing treatment with eltrombopag d ue to the potential for falsely elevated results. Performed By: #### GFR, BMP, PBNP, TROP #### [place] [address] #### ANEU, ADIFF, CBC #### [address] [address] Calcium [Mass/Vol] 9.3 8.4-10.2 mg/dL Normal 02-24-2020 [facility] ([place] (0000 0) Comment: Performed By: #### GFR, BMP, PBNP, TROP #### [place] [address] #### ANEU, ADIFF, CBC #### [address] [address] Chloride [Moles/Vol] 95 98-107 mmol/L Low 0 [facility] ([place] (15101) Comment: Performed By: #### GFR, BMP, PBNP, TROP #### [place] [address] #### ANEU, ADIFF, CBC #### [address] [address] CO2 [Moles/Vol] 30 23-31 mmol/L Normal 02-24-2020 [facility] ([place]) (99455) Comment: Performed By: #### GFR, BMP, PBNP, TROP #### [place] [address] #### ANEU, ADIFF, CBC #### [address] [address] Creatinine [Mass/Vol] 1.28 0.55-1.02 mg/dL High 02-24-20 [facility] ([place] (0000 0) Comment: Performed By: #### GFR, BMP, PBNP, TROP #### [place] [address] #### ANEU, ADIFF, CBC #### [address] [address] Electrolyte Balance 8.0 mEq/L Normal 02-24-2020 [facility] ([place]) (66769) Comment: Performed By: #### GFR, BMP, PBNP, TROP #### [place] [address] #### ANEU, ADIFF, CBC #### [address] [address] Globulin (S) [Mass/Vol] 3.4 G/dL Normal 2019 [facility] ([place]) (86163) Comment: Performed By: #### GFR, BMP, PBNP, TROP #### [place] [address] #### ANEU, ADIFF, CBC #### [address] [address] Glucose [Mass/Vol] 458 80-115 mg/dL Critically abnormal 0 02-24-2020 [facility] ([place] (69744) Comment: Performed By: #### GFR, BMP, PBNP, TROP #### [place] [address] #### ANEU, ADIFF, CBC #### [address] [address] Potassium [Moles/Vol] 4.6 3.5-5.1 mmol/L Normal 02-24-20 [facility] ([place]) (0000 0) Comment: Performed By: #### GFR, BMP, PBNP, TROP #### [place] [address] #### ANEU, ADIFF, CBC #### [address] [address] Protein [Mass/Vol] 6.9 6.4-8.2 G/dL Normal 02-24-2020 [facility] ([place]) (80210) Comment: Performed By: #### GFR, BMP, PBNP, TROP #### [place] [address] #### ANEU, ADIFF, CBC #### [address] [address] Sodium [Moles/Vol] 133 136-145 mmol/L Low 02-24-2020 [facility] ([place]) (64907) Comment: Performed By: #### GFR, BMP, PBNP, TROP #### [place] [address] #### ANEU, ADIFF, CBC #### [address] [address] Urea nitrogen [Mass/Vol] 17 7-18 mg/dL Normal 02-23 [facility] ([place] (0000 0) Comment: Performed By: #### GFR, BMP, PBNP, TROP #### [place] [address] #### ANEU, ADIFF, CBC #### [address] [address] Urea nitrogen/Creatinine [Mass 13 7-27 ratio Normal 02-24-2020 [facility]] [facility] [place] (02579) Comment: Performed By: #### GFR, BMP, PBNP, TROP #### [place] [address] #### ANEU, ADIFF, CBC #### [address] [address] a1c on 2020-02-24 HbA1c (Bld) [Mass fraction] 9.2 4.3-6.4 % High [facility] ([place] (0000 0) Comment: Performed By: #### GFR, BMP, PBNP, TROP #### [place] [address] #### FRED DIAZ, CBC #### [place] [address] [place], [place] [address] .gfr on 2020-02-24 GFR Non- 42 ml/min/1.73sqm Normal 02-24-2020 [facility] ([place] (27691) Comment: Result Comment: GFR Population mean for Afri can E[place]an, Non- Americans Ages 20-29 = 116 mL/min/1.73 [...] By: #### GFR, BMP, PBNP, TROP #### [place] [address] #### FRED DIAZ, CBC #### [address] [address] GFR 51 ml/min/1.73sqm Normal [facility] ([place] (0000 0) Comment: Result Comment: GFR Population mean for Afri can E[place]an, Non- Americans Ages 20-29 = 116 mL/min/1.73 [...] By: #### GFR, BMP, PBNP, TROP #### [place] [address] #### ANEU, ADIFF, CBC #### [address] [address] vidh on 2019-11-16 Vit. D 25-Hydroxy 21 ng/mL Normal 11-16-2019 [facility] ([place]) (39898) Comment: Result Comment: Interpretive Values Based on Total 25(OH)D: Severe Deficiency <20 ng/mL Mild to Moderate Deficiency 20-30 ng/mL Optimum Levels 30-100 ng/mL Toxicity Possible >100 ng/mL Performed By: #### GFR, BMP, PBNP, TROP #### [place] [address] #### ANEU, ADIFF, CBC #### [address] [address] tsh on 2019-11-16 TSH Qn 2.00 0.36-3.74 mcIU/mL Normal 11-16-2019 [facility] ([place]) (26578) Comment: Performed By: #### GFR, BMP, PBNP, TROP #### [place] [address] #### ANEU, ADIFF, CBC #### [address] [address] lipid on 2019-11-16 Cholesterol [Mass/Vol] 157 0-200 mg/dL Normal 020 [facility] ([place]) (0000 0) Comment: Result Comment: Cholesterol Reference Interval: Less than 200 Desirable 200-239 Borderline high risk 240 and above High risk Performed By: #### GFR, BMP, PBNP, TROP #### [place] [address] #### ANEU, ADIFF, CBC #### [address] [address] Cholesterol in HDL 70 40-60 mg/dL High 11-16-2019 [facility] [Mass/Vol] ([place]) (000 00) Comment: Performed By: #### GFR, BMP, PBNP, TROP #### [place] [address] #### ANEU, ADIFF, CBC #### [address] [address] Cholesterol in LDL 67 0-130 mg/dL Normal 11-16-2019 [facility] [Mass/Vol] ([place]) (000 00) Comment: Performed By: #### GFR, BMP, PBNP, TROP #### [place] [address] #### ANEU, ADIFF, CBC #### [address] [address] Triglyceride [Mass/Vol] 100 0-150 mg/dL Normal 2019 [facility] ([place] (0000 0) Comment: Result Comment: Triglyceride Reference Interval: Less than 150 Normal 150-199 Borderline high risk 200-499 High risk 500 or higher Very high risk Performed By: #### GFR, BMP, PBNP, TROP #### [place] [address] #### ANEU, ADIFF, CBC #### [address] [address] cmp on 2019-11-16 Albumin [Mass/Vol] 3.4 3.4-4.8 G/dL Normal 11-16-2019 [facility] ([place] (72687) Comment: Performed By: #### GFR, BMP, PBNP, TROP #### [place] [address] #### ANEU, ADIFF, CBC #### [address] [address] Albumin/Globulin [Mass ratio] 1.0 1.1-2.5 ratio Low 11-16-2019 [facility] ([place] (50807) Comment: Performed By: #### GFR, BMP, PBNP, TROP #### [place] [address] #### ANEU, ADIFF, CBC #### [address] [address] ALP [Catalytic activity/Vol] 197 40-135 U/L High 0 11-16-2019 [facility] ([place] (0000 0) Comment: Performed By: #### GFR, BMP, PBNP, TROP #### [place] [address] #### ANEU, ADIFF, CBC #### [address] [address] ALT [Catalytic activity/Vol] 39 10-35 U/L High 0 11-16-2019 [facility] ([place] (0000 0) Comment: Performed By: #### GFR, BMP, PBNP, TROP #### [place] [address] #### ANEU, ADIFF, CBC #### [address] [address] AST [Catalytic activity/Vol] 21 10-40 U/L Normal 0 11-16-2019 [facility] ([place] (0000 0) Comment: Performed By: #### GFR, BMP, PBNP, TROP #### [place] [address] #### ANEU, ADIFF, CBC #### [address] [address] Bili Total 0.9 0.2-1.0 mg/dL Normal 11-16-2019 [facility] ([place] (94981) Comment: Result Comment: Use of this assay is not recommended for patients undergoing treatment with eltrombopag d ue to the potential for falsely elevated results. Performed By: #### GFR, BMP, PBNP, TROP #### [place] [address] #### ANEU, ADIFF, CBC #### [address] [address] Calcium [Mass/Vol] 9.1 8.4-10.2 mg/dL Normal 11-16-2019 [facility] ([place] (0000 0) Comment: Performed By: #### GFR, BMP, PBNP, TROP #### [place] [address] #### ANEU, ADIFF, CBC #### [address] [address] Chloride [Moles/Vol] 99 98-107 mmol/L Normal 0 [facility] ([place] (0000 0) Comment: Performed By: #### GFR, BMP, PBNP, TROP #### [address] [address] #### ANEU, ADIFF, CBC #### [address] [address] CO2 [Moles/Vol] 30 23-31 mmol/L Normal 11-16-2019 [facility] ([place]) (35514) Comment: Performed By: #### GFR, BMP, PBNP, TROP #### [place] [address] #### ANEU, ADIFF, CBC #### [address] [address] Creatinine [Mass/Vol] 1.22 0.55-1.02 mg/dL High 11-16-19 20 [facility] ([place] (0000 0) Comment: Performed By: #### GFR, BMP, PBNP, TROP #### [place] [address] #### ANEU, ADIFF, CBC #### [address] [address] Electrolyte Balance 7.0 mEq/L Normal 11-16-2019 [facility] ([place] (21114) Comment: Performed By: #### GFR, BMP, PBNP, TROP #### [place] [address] #### ANEU, ADIFF, CBC #### [address] [address] Globulin (S) [Mass/Vol] 3.3 G/dL Normal 2019 [facility] ([place] (64996) Comment: Performed By: #### GFR, BMP, PBNP, TROP #### [place] [address] #### ANEU, ADIFF, CBC #### [address] [address] Glucose [Mass/Vol] 329 80-115 mg/dL High 11-16-2019 [facility] ([place] (09191) Comment: Performed By: #### GFR, BMP, PBNP, TROP #### [place] [address] #### ANEU, ADIFF, CBC #### [address] [address] Potassium [Moles/Vol] 4.8 3.5-5.1 mmol/L Normal 11-16-19 [facility] ([place]) (0000 0) Comment: Performed By: #### GFR, BMP, PBNP, TROP #### [place] [address] #### ANEU, ADIFF, CBC #### [address] [address] Protein [Mass/Vol] 6.7 6.4-8.2 G/dL Normal 11-16-2019 [facility] ([place]) (83521) Comment: Performed By: #### GFR, BMP, PBNP, TROP #### [place] [address] #### ANEU, ADIFF, CBC #### [address] [address] Sodium [Moles/Vol] 136 136-145 mmol/L Normal 11-16-2019 [facility] ([place] (0000 0) Comment: Performed By: #### GFR, BMP, PBNP, TROP #### [place] [address] #### ANEU, ADIFF, CBC #### [address] [address] Urea nitrogen [Mass/Vol] 14 7-18 mg/dL Normal 11-15 [facility] ([place]) (0000 0) Comment: Performed By: #### GFR, BMP, PBNP, TROP #### [place] [address] #### ANEU, ADIFF, CBC #### [address] [address] Urea nitrogen/Creatinine [Mass 11 7-27 ratio Normal 11-16-2019 [facility]] [facility] [place] (49797) Comment: Performed By: #### GFR, BMP, PBNP, TROP #### [address] [address] #### ANEU, ADIFF, CBC #### [address] [address] a1c on 2019-11-16 HbA1c (Bld) [Mass fraction] 8.5 4.3-6.4 % High [facility] ([place]) (0000 0) Comment: Performed By: #### GFR, BMP, PBNP, TROP #### [address] [address] #### ANEU, ADIFF, CBC #### [address] [address] .gfr on 2019-11-16 GFR Non- 44 ml/min/1.73sqm Normal 11-16-2019 [facility] ([place] (17270) Comment: Result Comment: GFR Population mean for Afri can E[place]rean, Non- Americans Ages 20-29 = 116 mL/min/1.73 [...] By: #### GFR, BMP, PBNP, TROP #### [address] [address] #### ANEU, ADIFF, CBC #### [address] [address] GFR 54 ml/min/1.73sqm Normal 03- [facility] ([place]) (0000 0) Comment: Result Comment: GFR Population mean for Afri can E[place]an, Non- Americans Ages 20-29 = 116 mL/min/1.73 [...] By: #### GFR, BMP, PBNP, TROP #### [place] [address] #### ANEU, ADIFF, CBC #### [address] [address] mri spine lumbar w/o contrast on 2019-08-18 MRI SPINE LUMBAR ORIGINAL Normal 08-18-2019 [facility] W/O CONTRAST MRI SPINE LUMBAR W/O CONTRAST [facility] ([place] ([id number]) ORDERING PROVIDER: JENNY VIDES CLINICAL STATEMENT: lumbosacral root disease. TECHNIQUE: Sagittal T2, T1 and STIR; axial T1 and T2 weighte d images. COMPARISON: None. Vertebral Nomenclature: For purposes of this dictation, it is assumed that there are 5 [id number], lumbar-type vertebrae, and the most caudal fully [...] resident's findings and interpretation. Interpreted By: Mukul Bya Preliminary Report By: Harvey Perez DO Electronically Signed By: Mukul [place] Dictated Date: 08/18/2019 2:32:52 PM Prelim Date: 08/18/2019 2:42:46 PM Sign Date: 08/18/2019 4:00:36 PM Ordering Provider:Jenny Vides cbc on 2019-08-17 Erythrocyte distribution 14.6 11.5-14.5 % High 08-17 [facility] width (RBC) [Ratio] ([place]) ([id number]) Comment: Performed By: #### GFR, BMP, PBNP, TROP #### [address] [address] #### ANEU, ADIFF, CBC #### [address] [address] Hematocrit (Bld) [Volume 37.4 37.0-47.0 % Normal 08-17 [facility] Foundation fraction] ([place]) (0000 0) Comment: Performed By: #### GFR, BMP, PBNP, TROP #### [address] [address] #### ANEU, ADIFF, CBC #### [address] [address] Hemoglobin (Bld) 12.4 12.0-16.0 G/dL Normal 08-17-2019 [facility] [Mass/Vol] [facility] ([place]) (92680) Comment: Performed By: #### GFR, BMP, PBNP, TROP #### [address] [address] #### ANEU, ADIFF, CBC #### [address] [address] MCH (RBC) [Entitic mass] 27.8 27.0-31.2 pg Normal 08-17 [facility] ([place]) (0000 0) Comment: Performed By: #### GFR, BMP, PBNP, TROP #### [place] [address] #### ANEU, ADIFF, CBC #### [address] [address] MCHC (RBC) [Mass/Vol] 33.1 33.0-37.0 G/dL Normal 08-17-20 19 [facility] ([place]) (0000 0) Comment: Performed By: #### GFR, BMP, PBNP, TROP #### [place] [address] #### ANEU, ADIFF, CBC #### [address] [address] MCV (RBC) [Entitic vol] 83.8 80.0-94.0 fL Normal 2018 [facility] ([place]) (0000 0) Comment: Performed By: #### GFR, BMP, PBNP, TROP #### [place] [address] #### ANEU, ADIFF, CBC #### [address] [address] Platelet mean volume 7.7 7.4-10.4 fL Normal 9 [facility] (d) [Entitic vol] ([place]) (87792) Comment: Performed By: #### GFR, BMP, PBNP, TROP #### [place] [address] #### ANEU, ADIFF, CBC #### [address] [address] Platelets (Bld) [#/Vol] 277 130-400 10 3/mcL Normal 2018 [facility] ([place]) (68290) Comment: Performed By: #### GFR, BMP, PBNP, TROP #### [facility] [address] [place], [place] [address] #### ANEU, ADIFF, CBC #### [address] [address] RBC (Bld) [#/Vol] 4.47 4.20-5.40 10 6/mcL Normal 08-17-2019 [facility] ([place]) (0000 0) Comment: Performed By: #### GFR, BMP, PBNP, TROP #### [place] [address] #### ANEU, ADIFF, CBC #### [address] [address] WBC (Bld) [#/Vol] 10.70 4.60-10.80 10 3/mcL Normal 08-17-2019 [facility] ([place] (25628) Comment: Performed By: #### GFR, BMP, PBNP, TROP #### [place] [address] #### ANEU, ADIFF, CBC #### [address] [address] bmp on 2019-08-17 Calcium [Mass/Vol] 9.1 8.4-10.2 mg/dL Normal 08-17-2019 [facility] ([place] (0000 0) Comment: Performed By: #### GFR, BMP, PBNP, TROP #### [place] [address] #### ANEU, ADIFF, CBC #### [address] [address] Chloride [Moles/Vol] 100 98-107 mmol/L Normal 9 [facility] ([place] (0000 0) Comment: Performed By: #### GFR, BMP, PBNP, TROP #### [place] [address] #### ANEU, ADIFF, CBC #### [address] [address] CO2 [Moles/Vol] 29 23-31 mmol/L Normal 08-17-2019 [facility] ([place] (28693) Comment: Performed By: #### GFR, BMP, PBNP, TROP #### [place] [address] #### ANEU, ADIFF, CBC #### [address] [address] Creatinine [Mass/Vol] 0.99 0.55-1.02 mg/dL Normal 08-17-20 19 [facility] ([place] (91338) Comment: Performed By: #### GFR, BMP, PBNP, TROP #### [place] [address] #### ANEU, ADIFF, CBC #### [address] [address] Electrolyte Balance 7.0 mEq/L Normal 08-17-2019 [facility] ([place] (22742) Comment: Performed By: #### GFR, BMP, PBNP, TROP #### [place] [address] #### ANEU, ADIFF, CBC #### [address] [address] Glucose [Mass/Vol] 319 80-115 mg/dL High 08-17-2019 [facility] ([place] (03355) Comment: Performed By: #### GFR, BMP, PBNP, TROP #### [place] [address] #### ANEU, ADIFF, CBC #### [address] [address] Potassium [Moles/Vol] 4.1 3.5-5.1 mmol/L Normal 08-17-20 19 [facility] ([place]) (0000 0) Comment: Performed By: #### GFR, BMP, PBNP, TROP #### [place] [address] #### ANEU, ADIFF, CBC #### [address] [address] Sodium [Moles/Vol] 136 136-145 mmol/L Normal [facility] (0000 0) Comment: Performed By: #### GFR, BMP, PBNP, TROP #### [place] [address] #### ANEU, ADIFF, CBC #### [address] [address] Urea nitrogen [Mass/Vol] 12 7-18 mg/dL Normal 08-17 [facility] (0000 0) Comment: Performed By: #### GFR, BMP, PBNP, TROP #### [place] [address] #### ANEU, ADIFF, CBC #### [address] [address] Urea nitrogen/Creatinine [Mass 12 7-27 ratio Normal 08-17-2019 [facility]] [facility] ([place] ([id number]) Comment: Performed By: #### GFR, BMP, PBNP, TROP #### [place] [address] #### ANEU, ADIFF, CBC #### [address] [address] .neuabs on Neutrophils (Bld) 7.60 2.85-6.16 10 3/mcL High 08-17-2019 [facility] [#/Vol] [facility] ([place]) ([id number]) Comment: Performed By: #### GFR, BMP, PBNP, TROP #### [place] [address] #### ANEU, ADIFF, CBC #### [address] [address] .gfr on 2019-08-17 GFR 68 ml/min/1.73sqm Normal 07-21 [facility] (0000 0) Comment: Result Comment: GFR Population mean for Afri can Eritrean, Non- Americans Ages 20-29 = 116 mL/min/1.73 [...] By: #### GFR, BMP, PBNP, TROP #### [place] [address] #### ANEU, ADIFF, CBC #### [address] [address] GFR Non- 56 ml/min/1.73sqm Normal 08-17-2019 [facility] ([id number]) Comment: Result Comment: GFR Population mean for Afri can Erit[place]an, Non- Americans Ages 20-29 = 116 mL/min/1.73 [...] By: #### GFR, BMP, PBNP, TROP #### [place] [address] #### ANEU, ADIFF, CBC #### [address] [address] .auto diff on 08-17 Ammonia (P) [Mass/Vol] 0.70 0.15-1.00 10 3/mcL Normal 019 [facility] ([id number]) Comment: Performed By: #### GFR, BMP, PBNP, TROP #### [place] [address] #### ANEU, ADIFF, CBC #### [address] [address] Basophils (Bld) 0.10 0.00-0.19 10 3/mcL Normal 08-17-2019 [facility] [#/Vol] [facility] ([place]) ([id number]) Comment: Performed By: #### GFR, BMP, PBNP, TROP #### [place] [address] #### ANEU, ADIFF, CBC #### [address] [address] Basophils/100 WBC (Bld) 0.6 0.0-2.5 % Normal 2018 [facility] ([place] (0000 0) Comment: Performed By: #### GFR, BMP, PBNP, TROP #### [place] [address] #### ANEU, ADIFF, CBC #### [address] [address] Eosinophils (Bld) 0.30 0.00-0.40 10 3/mcL Normal 08-17-2019 [facility] [#/Vol] [facility] ([place]) ([id number]) Comment: Performed By: #### GFR, BMP, PBNP, TROP #### [place] [address] #### ANEU, ADIFF, CBC #### [address] [address] Eosinophils/100 WBC (Bld) 2.6 0.0-7.0 % Normal 07-21 [facility] ([place] (0000 0) Comment: Performed By: #### GFR, BMP, PBNP, TROP #### [place] [address] #### ANEU, ADIFF, CBC #### [address] [address] Lymphocytes (Bld) 2.10 0.77-3.85 10 3/mcL Normal 08-17-2019 [facility] [#/Vol] [facility] ([place] ([id number]) Comment: Performed By: #### GFR, BMP, PBNP, TROP #### [place] [address] #### ANEU, ADIFF, CBC #### [address] [address] Lymphocytes/100 WBC (Bld) 19.5 10.0-50.0 % Normal 07-21 [facility] ([place] ([id number]) Comment: Performed By: #### GFR, BMP, PBNP, TROP #### [place] [address] #### ANEU, ADIFF, CBC #### [address] [address] Monocytes/100 WBC (Bld) 6.5 1.7-13.0 % Normal 2018 [facility] ([place] (0000 0) Comment: Performed By: #### GFR, BMP, PBNP, TROP #### [place] [address] #### ANEU, ADIFF, CBC #### [address] [address] Neutrophils/100 WBC (Bld) 70.8 37.0-80.0 % Normal 07-21 [facility] ([place] ([id number]) Comment: Performed By: #### GFR, BMP, PBNP, TROP #### [place] [address] #### ANEU, ADIFF, CBC #### [address] [address] xr femur minimum 2 views left on 2019-07-31 XR FEMUR MINIMUM 2 ORIGINAL Normal 07-31-2019 [facility] VIEWS LEFT XR FEMUR 4 VIEWS LEFT [facility] ([place]) ([id number]) CLINICAL STATEMENT: pain, in left hip. COMPARISON: [...] lund on 2019-06-14 CUR . Normal 06-14-2019 [facility] - Microbiology [facility] ([place]) ([id number]) PROCEDURE: Urine Culture [*1] SOURCE: Urine, Clean [...] Locations *1: This test was performed at: [facility], [address] [place] [address], [address] , [place] Comment: Performed By: #### GFR, BMP, PBNP, TROP #### [address] [address] #### ANEU, ADIFF, CBC #### [place] [address] [place], [place] [address] cbc on 2019-06-13 Erythrocyte distribution 15.3 11.5-14.5 % High 06-13 [facility] width (RBC) [Ratio] ([place]) ([id number]) Comment: Performed By: #### GFR, BMP, PBNP, TROP #### [place] [address] #### ANEU, ADIFF, CBC #### [address] [address] Hematocrit (Bld) [Volume 35.2 37.0-47.0 % Low 06-13 [facility] fraction] ([place]) (0000 0) Comment: Performed By: #### GFR, BMP, PBNP, TROP #### [place] [address] #### ANEU, ADIFF, CBC #### [address] [address] Hemoglobin (Bld) 11.6 12.0-16.0 G/dL Low 06-13-2019 [facility] [Mass/Vol] ([place]) (000 00) Comment: Performed By: #### GFR, BMP, PBNP, TROP #### [place] [address] #### ANEU, ADIFF, CBC #### [address] [address] MCH (RBC) [Entitic mass] 27.8 27.0-31.2 pg Normal 06-13 [facility] ([place] (0000 0) Comment: Performed By: #### GFR, BMP, PBNP, TROP #### [place] [address] #### ANEU, ADIFF, CBC #### [address] [address] MCHC (RBC) [Mass/Vol] 33.0 33.0-37.0 G/dL Normal 06-13-20 [facility] ([place] (0000 0) Comment: Performed By: #### GFR, BMP, PBNP, TROP #### [place] [address] #### ANEU, ADIFF, CBC #### [address] [address] MCV (RBC) [Entitic vol] 84.3 80.0-94.0 fL Normal 2018 [facility] ([place] (0000 0) Comment: Performed By: #### GFR, BMP, PBNP, TROP #### [place] [address] #### ANEU, ADIFF, CBC #### [address] [address] Platelet mean volume 7.4 7.4-10.4 fL Normal 9 [facility] (Bld) [Entitic vol] ([place]) ([id number]) Comment: Performed By: #### GFR, BMP, PBNP, TROP #### [place] [address] #### ANEU, ADIFF, CBC #### [address] [address] Platelets (Bld) [#/Vol] 234 130-400 10 3/mcL Normal 2018 [facility] ([place]) ([id number]) Comment: Performed By: #### GFR, BMP, PBNP, TROP #### [place] [address] #### ANEU, ADIFF, CBC #### [address] [address] RBC (Bld) [#/Vol] 4.17 4.20-5.40 10 6/mcL Low 06-13-2019 [facility] ([place]) (0000 0) Comment: Performed By: #### GFR, BMP, PBNP, TROP #### [place] [address] #### ANEU, ADIFF, CBC #### [address] [address] WBC (Bld) [#/Vol] 11.60 4.60-10.80 10 3/mcL High 06-13-2019 [facility] ([place] (0000 0) Comment: Performed By: #### GFR, BMP, PBNP, TROP #### [place] [address] #### ANEU, ADIFF, CBC #### [address] [address] bmp on 2019-06-13 Calcium [Mass/Vol] 8.5 8.4-10.2 mg/dL Normal 06-13-2019 [facility] ([place] (0000 0) Comment: Performed By: #### GFR, BMP, PBNP, TROP #### [place] [address] #### ANEU, ADIFF, CBC #### [address] [address] Chloride [Moles/Vol] 101 98-107 mmol/L Normal 9 [facility] ([place] (0000 0) Comment: Performed By: #### GFR, BMP, PBNP, TROP #### [place] [address] #### ANEU, ADIFF, CBC #### [address] [address] CO2 [Moles/Vol] 38 23-31 mmol/L High 06-13-2019 [facility] ([place]) ([id number]) Comment: Performed By: #### GFR, BMP, PBNP, TROP #### [place] [address] #### ANEU, ADIFF, CBC #### [address] [address] Creatinine [Mass/Vol] 1.42 0.55-1.02 mg/dL High 06-13-20 19 [facility] ([place] (0000 0) Comment: Performed By: #### GFR, BMP, PBNP, TROP #### [place] [address] #### ANEU, ADIFF, CBC #### [address] [address] Electrolyte Balance 3.0 mEq/L Normal 06-13-2019 [facility] ([place] ([id number]) Comment: Performed By: #### GFR, BMP, PBNP, TROP #### [place] [address] #### ANEU, ADIFF, CBC #### [address] [address] Glucose [Mass/Vol] 164 80-115 mg/dL High 06-13-2019 [facility] ([place] (80082) Comment: Performed By: #### GFR, BMP, PBNP, TROP #### [place] [address] #### ANEU, ADIFF, CBC #### [address] [address] Potassium [Moles/Vol] 4.0 3.5-5.1 mmol/L Normal 06-13-20 [facility] ([place] (0000 0) Comment: Performed By: #### GFR, BMP, PBNP, TROP #### [place] [address] #### ANEU, ADIFF, CBC #### [address] [address] Sodium [Moles/Vol] 142 136-145 mmol/L Normal 06-13-2019 [facility] ([place] (0000 0) Comment: Performed By: #### GFR, BMP, PBNP, TROP #### [place] [address] #### ANEU, ADIFF, CBC #### [address] [address] Urea nitrogen [Mass/Vol] 10 7-18 mg/dL Normal 06-13 [facility] ([place] (0000 0) Comment: Performed By: #### GFR, BMP, PBNP, TROP #### [place] [address] #### ANEU, ADIFF, CBC #### [address] [address] Urea nitrogen/Creatinine [Mass 7 7-27 ratio Normal 06-13-2019 [facility]] [facility] ([place]) (03778) Comment: Performed By: #### GFR, BMP, PBNP, TROP #### [address] [address] #### ANEU, ADIFF, CBC #### [address] [address] .neuabs on Neutrophils (Bld) 8.40 2.85-6.16 10 3/mcL High 06-13-2019 [facility] [#/Vol] [facility] ([place]) (56652) Comment: Performed By: #### GFR, BMP, PBNP, TROP #### [place] [id number] #### ANEU, ADIFF, CBC #### [address] [address] .gfr on 2019-06-13 GFR 45 ml/min/1.73sqm Normal 05-20 [facility] ([place] (0000 0) Comment: Result Comment: GFR Population mean for Afri can Eritrean, Non- Americans Ages 20-29 = 116 mL/min/1.73 [...] By: #### GFR, BMP, PBNP, TROP #### [address] [address] #### ANEU, ADIFF, CBC #### [address] [address] GFR Non- 37 ml/min/1.73sqm Normal 06-13-2019 [facility] ([place] ([id number]) Comment: Result Comment: GFR Population mean for Afri can Eritrean, Non- Americans Ages 20-29 = 116 mL/min/1.73 [...] By: #### GFR, BMP, PBNP, TROP #### [place] [address] #### ANEU, ADIFF, CBC #### [address] [address] .auto diff on 06-13 Ammonia (P) [Mass/Vol] 0.90 0.15-1.00 10 3/mcL Normal [address] [place] [address] ([place]) (39398) Comment: Performed By: #### GFR, BMP, PBNP, TROP #### [place] [address] #### ANEU, ADIFF, CBC #### [address] [address] Basophils (Bld) 0.10 0.00-0.19 10 3/mcL Normal 06-13-2019 [facility] [#/Vol] [facility] ([place]) (43747) Comment: Performed By: #### GFR, BMP, PBNP, TROP #### [place] [address] #### ANEU, ADIFF, CBC #### [address] [address] Basophils/100 WBC (Bld) 0.5 0.0-2.5 % Normal 2018 [facility] ([place] (0000 0) Comment: Performed By: #### GFR, BMP, PBNP, TROP #### [place] [address] #### ANEU, ADIFF, CBC #### [address] [address] Eosinophils (Bld) 0.30 0.00-0.40 10 3/mcL Normal 06-13-2019 [facility] [#/Vol] [facility] ([place]) (60493) Comment: Performed By: #### GFR, BMP, PBNP, TROP #### [place] [address] #### ANEU, ADIFF, CBC #### [address] [address] Eosinophils/100 WBC (Bld) 2.3 0.0-7.0 % Normal 05-20 [facility] ([place] (0000 0) Comment: Performed By: #### GFR, BMP, PBNP, TROP #### [place] [address] #### ANEU, ADIFF, CBC #### [address] [address] Lymphocytes (Bld) 2.10 0.77-3.85 10 3/mcL Normal 06-13-2019 [facility] [#/Vol] [facility] ([place] (61350) Comment: Performed By: #### GFR, BMP, PBNP, TROP #### [place] [address] #### ANEU, ADIFF, CBC #### [address] [address] Lymphocytes/100 WBC (Bld) 17.9 10.0-50.0 % Normal 05-20 [facility] ([place] ([id number]) Comment: Performed By: #### GFR, BMP, PBNP, TROP #### [place] [address] #### ANEU, ADIFF, CBC #### [address] [address] Monocytes/100 WBC (Bld) 7.4 1.7-13.0 % Normal 2018 [facility] ([place] (0000 0) Comment: Performed By: #### GFR, BMP, PBNP, TROP #### [address] [address] #### ANEU, ADIFF, CBC #### [facility] [address] [place], [place] [address] Neutrophils/100 WBC (Bld) 71.9 37.0-80.0 % Normal 05-20 [facility] ([place] ([id number]) Comment: Performed By: #### GFR, BMP, PBNP, TROP #### [address] [address] #### ANEU, ADIFF, CBC #### [facility] [address] [place], [place] [address] xr chest 2 views on 2019-06-12 XR CHEST 2 VIEWS ORIGINAL Normal 06-12-2019 [facility] Chest PA and lateral 06/12/2019 9:43 AM [facility] ([place]) (54613) History: Chest Pain The heart and pulmonary [...] on 2019-06-12 Color (U) Yellow Normal 06-12-2019 [facility] ([place]) (81698) Comment: Performed By: #### UAMICAO, UA #### [address] [address] Glucose (U) [Mass/Vol] Negative Negative mg/dL Normal 019 [facility] ([place] (74114) Comment: Performed By: #### UAMICAO, UA #### [address] [address] Ketones Ql (U) Negative Negative Normal 06-12-2019 [facility] ([place]) (77291) Comment: Performed By: #### UAMICAO, UA #### [address] [address] UA Appear Cloudy Clear Abnormal 06-12-2019 [facility] ([place]) (00268) Comment: Performed By: #### UAMICAO, UA #### [address] [address] UA Blood Small Negative Abnormal 06-12-2019 [facility] ([place]) (24502) Comment: Performed By: #### UAMICAO, UA #### [address] [address] UA Leuk Est Moderate Negative Abnormal 06-12-2019 [facility] ([place] ([id number]) Comment: Performed By: #### UAMICAO, UA #### [address] [address] UA Nitrite Positive Negative Abnormal 06-12-2019 [facility] ([place] (44921) Comment: Performed By: #### UAMICAO, UA #### [place] [address] UA pH 7.0 5.0 - 8.0 Normal 06-12-2019 [facility] ([place]) (29522) Comment: Performed By: #### UAMICAO, UA #### [place] [address] UA Protein 30 Negative mg/dL Normal 06-12-2019 [facility] ([place] (67097) Comment: Performed By: #### UAMICAO, UA #### [address] [address] UA Spec Grav 1.015 1.015-1.025 Normal 06-12-2019 [facility] ([place]) (39621) Comment: Performed By: #### UAMICAO, UA #### [address] [address] UA Specimen Type Clean Catch Normal 06-12-2019 [facility] ([place] ([id number]) Comment: Performed By: #### UAMICAO, UA #### [address] [address] UA Urobilinogen 0.2 0.2-1.0 E.U./dL Normal 06-12-2019 [facility] ([place]) (00113) Comment: Performed By: #### UAMICAO, UA #### [address] [address] Urobilinogen Qn (U) Negative Negative Normal 06-12-2019 [facility] ([place] (0000 0) Comment: Performed By: #### UAMICAO, UA #### [address] [address] trop on 2019-06-12 Troponin I.cardiac <0.020 0.000-0.040 ng/mL Normal 9 [facility] [Mass/Vol] [facility] [place] (87262) Comment: Result Comment: Troponin I r eference range: 0.00-0.040 ng/mL Negative an d non-diagnostic. >0.040 ng/mL Consistent with cardiac damage, increased clinical risk and possibility of myocardial in farction. Serial measurements, a rise & fall in test results, clinical histo ry, appropriate symptoms and/or ECG changes may help assess possibility of [place]. *Other non-acute coronary sy ndrome conditions such as CHF, myoc arditis, pulmonary emboli, sepsis and cardiac surgery could result in myoc ardial damage and increased troponi n levels. Performed By: #### GFR, BMP, PBNP, TROP #### [place] [address] #### ANEU, ADIFF, CBC #### [address] [address] pbnp on 2019-06-12 Natriuretic peptide B (Bld) 940 0-125 pg/mL High [facility] [Mass/Vol] ([place]) (000 00) Comment: Result Comment: NT-proBNP re sults of less than 300 pg/mL effectively rules out acute congestive h eart failure with 99% negative predictive value. Performed By: #### GFR, BMP, PBNP, TROP #### [place] [address] #### ANEU, ADIFF, CBC #### [address] [address] cbc on 2019-06-12 Erythrocyte distribution 14.8 11.5-14.5 % High 06-12 [facility] width (RBC) [Ratio] ([place]) ([id number]) Comment: Performed By: #### GFR, BMP, PBNP, TROP #### [place] [address] #### ANEU, ADIFF, CBC #### [address] [address] Hematocrit (Bld) [Volume 37.7 37.0-47.0 % Normal 06-12 [facility] fraction] ([place]) (0000 0) Comment: Performed By: #### GFR, BMP, PBNP, TROP #### [place] [address] #### ANEU, ADIFF, CBC #### [address] [address] Hemoglobin (Bld) 12.5 12.0-16.0 G/dL Normal 06-12-2019 [facility] [Mass/Vol] [facility] [place] (54049) Comment: Performed By: #### GFR, BMP, PBNP, TROP #### [place] [address] #### ANEU, ADIFF, CBC #### [address] [address] MCH (RBC) [Entitic mass] 27.8 27.0-31.2 pg Normal 06-12 [facility] ([place] (0000 0) Comment: Performed By: #### GFR, BMP, PBNP, TROP #### [place] [address] #### ANEU, ADIFF, CBC #### [address] [address] MCHC (RBC) [Mass/Vol] 33.2 33.0-37.0 G/dL Normal 06-12-20 [facility] ([place] (0000 0) Comment: Performed By: #### GFR, BMP, PBNP, TROP #### [place] [address] #### ANEU, ADIFF, CBC #### [address] [address] MCV (RBC) [Entitic vol] 83.8 80.0-94.0 fL Normal 2018 [facility] ([place] (0000 0) Comment: Performed By: #### GFR, BMP, PBNP, TROP #### [place] [address] #### ANEU, ADIFF, CBC #### [address] [address] Platelet mean volume 8.1 7.4-10.4 fL Normal 9 [facility] (Bld) [Entitic vol] ([place]) ([id number]) Comment: Performed By: #### GFR, BMP, PBNP, TROP #### [place] [address] #### ANEU, ADIFF, CBC #### [address] [address] Platelets (Bld) [#/Vol] 242 130-400 10 3/mcL Normal 2018 [facility] ([place] (71220) Comment: Performed By: #### GFR, BMP, PBNP, TROP #### [place] [address] #### ANEU, ADIFF, CBC #### [address] [address] RBC (Bld) [#/Vol] 4.50 4.20-5.40 10 6/mcL Normal 06-12-2019 [facility] ([place]) (0000 0) Comment: Performed By: #### GFR, BMP, PBNP, TROP #### [place] [address] #### ANEU, ADIFF, CBC #### [address] [address] WBC (Bld) [#/Vol] 10.00 4.60-10.80 10 3/mcL Normal 06-12-2019 [facility] ([place] ([id number]) Comment: Performed By: #### GFR, BMP, PBNP, TROP #### [address] [address] #### ANEU, ADIFF, CBC #### [address] [address] bmp on 2019-06-12 Calcium [Mass/Vol] 8.2 8.4-10.2 mg/dL Low 06-12-2019 [facility] ([place] (52973) Comment: Order Comment: Hemolyzed - P lease redraw Performed By: #### GFR, BMP, PBNP, TROP #### [address] [address] #### ANEU, ADIFF, CBC #### [address] [address] Chloride [Moles/Vol] 101 98-107 mmol/L Normal [facility] ([place] (0000 0) Comment: Order Comment: Hemolyzed - P lease redraw Performed By: #### GFR, BMP, PBNP, TROP #### [address] [address] #### ANEU, ADIFF, CBC #### [address] [address] CO2 [Moles/Vol] 30 23-31 mmol/L Normal 06-12-2019 [facility] ([place]) (41328) Comment: Order Comment: Hemolyzed - P lease redraw Performed By: #### GFR, BMP, PBNP, TROP #### [address] [address] #### ANEU, ADIFF, CBC #### [address] [address] Creatinine [Mass/Vol] 1.07 0.55-1.02 mg/dL High 06-12-20 19 [facility] ([place] (0000 0) Comment: Order Comment: Hemolyzed - P lease redraw Performed By: #### GFR, BMP, PBNP, TROP #### [place] [address] #### ANEU, ADIFF, CBC #### [address] [address] Electrolyte Balance 9.0 mEq/L Normal 06-12-2019 [facility] ([place] (69528) Comment: Order Comment: Hemolyzed - P lease redraw Performed By: #### GFR, BMP, PBNP, TROP #### [place] [address] #### ANEU, ADIFF, CBC #### [address] [address] Glucose [Mass/Vol] 232 80-115 mg/dL High 06-12-2019 [facility] ([place] (85905) Comment: Order Comment: Hemolyzed - P lease redraw Performed By: #### GFR, BMP, PBNP, TROP #### [place] [address] #### ANEU, ADIFF, CBC #### [address] [address] Potassium [Moles/Vol] 3.8 3.5-5.1 mmol/L Normal 06-12-20 [facility] ([place] (0000 0) Comment: Order Comment: Hemolyzed - P lease redraw Performed By: #### GFR, BMP, PBNP, TROP #### [place] [address] #### ANEU, ADIFF, CBC #### [address] [address] Sodium [Moles/Vol] 140 136-145 mmol/L Normal 06-12-2019 [facility] ([place] (0000 0) Comment: Order Comment: Hemolyzed - P lease redraw Performed By: #### GFR, BMP, PBNP, TROP #### [place] [address] #### ANEU, ADIFF, CBC #### [address] [address] Urea nitrogen [Mass/Vol] 7 7-18 mg/dL Normal 06-12 [facility] ([place] (0000 0) Comment: Order Comment: Hemolyzed - P lease redraw Performed By: #### GFR, BMP, PBNP, TROP #### [address] [address] #### ANEU, ADIFF, CBC #### [address] [address] Urea nitrogen/Creatinine [Mass 7 7-27 ratio Normal 06-12-2019 [facility]] [facility] [place] (81745) Comment: Order Comment: Hemolyzed - P lease redraw Performed By: #### GFR, BMP, PBNP, TROP #### [place] [address] #### ANEU, ADIFF, CBC #### [address] [address] .urinalysis microscopic (ao) on 2019-06-12 RBC (U) [#/Vol] 0-5 None Seen Abnormal 06-12-2019 [facility] ([place]) (41419) Comment: Performed By: #### UAMICAO, UA #### [place] [address] UA Bacteria 4+ /hpf Abnormal 06-12-2019 [facility] ([place] ([id number]) Comment: Performed By: #### UAMICAO, UA #### [place] [address] UA Squam Epithelial 0-5 None Seen Abnormal 06-12-2019 [facility] ([place] (0000 0) Comment: Performed By: #### UAMICAO, UA #### [address] [address] UA WBC LOADED None Seen Abnormal 06-12-2019 [facility] ([place]) ([id number]) Comment: Performed By: #### UAMICAO, UA #### [address] [address] .neuabs on Neutrophils (Bld) 6.30 2.85-6.16 10 3/mcL High 06-12-2019 [facility] [#/Vol] [facility] ([place] (46960) Comment: Performed By: #### GFR, BMP, PBNP, TROP #### [place] [id number] #### ANEU, ADIFF, CBC #### [address] [address] .gfr on 2019-06-12 GFR 63 ml/min/1.73sqm Normal 05-20 [facility] ([place] (0000 0) Comment: Result Comment: GFR Population mean for Afri can E[place]an, Non- Americans Ages 20-29 = 116 mL/min/1.73 [...] By: #### GFR, BMP, PBNP, TROP #### [place] [address] #### ANEU, ADIFF, CBC #### [address] [address] GFR Non- 52 ml/min/1.73sqm Normal 06-12-2019 [facility] ([place] ([id number]) Comment: Result Comment: GFR Population mean for Afri can E[place]an, Non- Americans Ages 20-29 = 116 mL/min/1.73 [...] By: #### GFR, BMP, PBNP, TROP #### [place] [address] #### ANEU, ADIFF, CBC #### [address] [address] .auto diff on 06-12 Ammonia (P) [Mass/Vol] 0.70 0.15-1.00 10 3/mcL Normal 019 [facility] ([place] ([id number]) Comment: Performed By: #### GFR, BMP, PBNP, TROP #### [place] [address] #### ANEU, ADIFF, CBC #### [address] [address] Basophils (Bld) 0.20 0.00-0.19 10 3/mcL High 06-12-2019 [facility] [#/Vol] [facility] ([place] (16862) Comment: Performed By: #### GFR, BMP, PBNP, TROP #### [place] [address] #### ANEU, ADIFF, CBC #### [address] [address] Basophils/100 WBC (Bld) 1.5 0.0-2.5 % Normal 2018 [facility] ([place] (0000 0) Comment: Performed By: #### GFR, BMP, PBNP, TROP #### [place] [address] #### ANEU, ADIFF, CBC #### [address] [address] Eosinophils (Bld) 0.40 0.00-0.40 10 3/mcL Normal 06-12-2019 [facility] [#/Vol] [facility] ([place]) ([id number]) Comment: Performed By: #### GFR, BMP, PBNP, TROP #### [place] [address] #### ANEU, ADIFF, CBC #### [address] [address] Eosinophils/100 WBC (Bld) 3.5 0.0-7.0 % Normal 05-20 [facility] ([place] (0000 0) Comment: Performed By: #### GFR, BMP, PBNP, TROP #### [place] [address] #### ANEU, ADIFF, CBC #### [address] [address] Lymphocytes (Bld) 2.50 0.77-3.85 10 3/mcL Normal 06-12-2019 [facility] [#/[facility]] [facility] ([place] (99921) Comment: Performed By: #### GFR, BMP, PBNP, TROP #### [place] [address] #### ANEU, ADIFF, CBC #### [address] [address] Lymphocytes/100 WBC (Bld) 24.7 10.0-50.0 % Normal 05-20 [facility] ([place] (31025) Comment: Performed By: #### GFR, BMP, PBNP, TROP #### [place] [address] #### ANEU, ADIFF, CBC #### [address] [address] Monocytes/100 WBC (Bld) 6.9 1.7-13.0 % Normal 2018 [facility] ([place] (0000 0) Comment: Performed By: #### GFR, BMP, PBNP, TROP #### [place] [address] #### ANEU, ADIFF, CBC #### [address] [address] Neutrophils/100 WBC (Bld) 63.4 37.0-80.0 % Normal 05-20 [facility] ([address]007) Comment: Performed By: #### GFR, BMP, PBNP, TROP #### [facility] [address] [place], [place] [address] #### ANEU, ADIFF, CBC #### [address] [place], [place] [address] urine w microsc on 2018-08-31 Appearance Nom (U) Cloudy CLEAR Normal 08-31-2018 [facility] (51219) Comment: Performed By: #### L600.0000 3 ####[facility] ONIEFFBJMM0055 [place], [place] [address]Ir# [phone] Color Nom (U) Yellow Normal 08-31-2018 [facility] (14964) Comment: Performed By: #### L600.0000 3 ####[facility] OAOVKEVVUJ8583 [place], [place] [address]Ab# [phone] Glucose mass conc (U) NEG mg/dL Normal 08-31-19 [facility] (76037) Comment: Performed By: #### L600.0000 3 ####[facility] OPEOLBVSJO9647 [place], [place] [address]Dg# [phone] HYALINE CAST 86 0-1 /LPF High 08-31-2018 [facility] (16819) Comment: Performed By: #### L600.0000 3 ####[facility] EJEXLMPGZD1378 [place], [place] [address]Kh# [phone] Mucus Ql (Urine sed) TRACE Normal 9 [facility] (02766) Comment: Performed By: #### L600.0000 3 ####[facility] HAMATANPXB5211 [place], [place] [address]Ge# [phone] Protein mass conc (U) NEGATIVE NEGATIVE mg/dL Normal 08-31-19 [facility] (00 000) Comment: Performed By: #### L600.0000 3 ####[facility] UPOQSFDENG2504 [place], [place] [address]Ya# [phone] SQUAMOUS EPIS 1 0-5 EPI/HPF Normal 08-31-2018 [facility] (53768) Comment: Performed By: #### L600.0000 3 ####[facility] HYDPKBFKIF7818 [place], [place] [address]Pq# [phone] UA BACTERIA 4+ NONE /HPF Normal 08-31-2018 [facility] (44914) Comment: Performed By: #### L600.0000 3 ####[facility] RIJXJSAOFV6892 [place], [place] [address]Do# UA BILIRUBIN NEGATIVE Normal 08-31-2018 [facility] (20881) Comment: Performed By: #### L600.0000 3 ####[facility] FYJQJELUQD5486 [place], [place] [address]Qa# UA BLOOD NEGATIVE NEGATIVE Normal 08-31-2018 [facility] (57114) Comment: Performed By: #### L600.0000 3 ####[facility] BSLL[address]QUY[address] [place] [address]Zo# [phone] UA KETONE NEGATIVE Normal 08-31-2018 [facility] (04017) Comment: Performed By: #### L600.0000 3 ####[facility] SVYMIAXNWJ1438 [place], [place] [address]Zn# UA LK ESTERASE 500 NEGATIVE Normal 08-31-2018 [facility] (22598) Comment: Performed By: #### L600.0000 3 ####[facility] EBIIWGUPQE9248 [place], [place] [address]Ia# [phone] UA NITRITE NEGATIVE NEGATIVE Normal 08-31-2018 [facility] (31743) Comment: Performed By: #### L600.0000 3 ####[facility] AEGSYOBFTA1894 [place], [place] [address]Qb# UA PH 5.0 Normal 08-31-2018 [facility] (80082) Comment: Performed By: #### L600.0000 3 ####[facility] RCHYDFYXDW1227 [place], [place] [address]Vt# [phone] UA RBC 1 0-3 RBC/HPF Normal 08-31-2018 [facility] (56001) Comment: Performed By: #### L600.0000 3 ####[facility] EXTQWBPEGB6738 [place], [place] [address]Bm# [phone] UA SPEC GRAV 1.013 1.005-1.030 Normal 08-31-2018 [facility] (26229) Comment: Performed By: #### L600.0000 3 ####[facility] EUQGNXRQCB1976 [place], [place] [address]Av# [phone] UA UROBILINOGEN NEG Normal 08-31-2018 [facility] (50643) Comment: Performed By: #### L600.0000 3 ####[facility] YGPRAZZKCE9506 [place], [place] [address]Ot# [phone] UA WBC 293 0-5 WBC/HPF High 08-31-2018 [facility] (31654) Comment: Performed By: #### L600.0000 3 ####[facility] UNZHAVAGEA6191 [place], [place] [address]Lu# [phone] UA YEAST MANY NONE Normal 08-31-2018 [facility] (75495) Comment: Performed By: #### L600.0000 3 ####[facility] YZRJAYSVAZ5309 [place], [place] [address]Ck# [phone] WBC CLUMPS FEW Normal 08-31-2018 [facility] (90026) Comment: Performed By: #### L600.0000 3 ####[facility] XHEMEKOJTM8569 [place], [place] [address]Ng# gfr est on IF AMER 14 ML/MIN Normal 08-31-2018 [facility] (62374) Comment: Performed By: #### L500.0140 0, L500.04301, L550.55254 ####[facility] DWVOMXJBOW8545 [place], [place] [address]Ws# [phone] IF non-AFR AMER 12 ML/MIN Normal [facility]-31-[facility]7[address]66[facility] Comment: Performed By: #### L500.0140 0, L500.81973, L550.31727 ####[facility] XYPLODVAZA1041 [place], [place] [address]Hu# [phone] crp on 2018-08-31 CRP mass conc 4.13 0.00-0.32 MG/DL High 08-31-2018 [facility] (66609) Comment: Performed By: #### L500.0140 0, L500.76253, L550.30216 ####[facility] FSNSVACZKI3205 [place], [place] [address]Eu# [phone] cmp on 2018-08-31 Albumin mass conc 2.9 3.2-5.0 GM/DL Low 08-31-2018 [facility] (08949) Comment: Performed By: #### L500.0140 0, L500.35210, L550.81008 ####[facility] RISNTBSBFL9346 [place], [place] [address]Xb# [phone] Albumin/Globulin mass ratio 0.9 0.8-2.0 {ratio} Normal [place] (92455) Comment: Performed By: #### L500.0140 0, L500.95001, L550.83841 ####[facility] RSEVWFWBHC0485 [place], [place] [address]Oy# [phone] ALK PHOS [phone] U/L High 08-31-2018 [facility] (93777) Comment: Performed By: #### L500.0140 0, L500.76296, L550.04394 ####[facility] DPRPJOTSLG4733 [place], [place] [address]Yr# [phone] ALT enzyme act/vol 78 13-61 IU/L High 08-31-2018 [facility] (67322) Comment: Result Comment: RESULTS MAY BE FALSELY DEPRESSED AFTER THE ADMINISTRATION OFSULFASALAZINE AND/OR SULFA PYRIDINE. Performed By: #### L500.0140 0, L500.34152, L550.73967 ####[facility] EAVFACDBPI6836 [place], [place] [address]Mz# [phone] Anion gap molar conc 8 5-16 MMOL/L Normal 9 [facility] (98883) Comment: Performed By: #### L500.0140 0, L500.67969, L550.26383 ####[facility] TWVWYIRXDX6438 [place], [place] [address]Li# [phone] BILI TOTAL 1.0 0.2-1.0 MG/DL Normal 08-31-2018 [facility] (33233) Comment: Performed By: #### L500.0140 0, L500.26345, L550.22775 ####[facility] XCFEFXBZAE7641 [place], [place] [address]Mc# [phone] Calcium mass conc 8.5 8.5-10.1 MG/DL Normal 08-31-2018 [facility] (52594) Comment: Performed By: #### L500.0140 0, L500.37672, L550.57774 ####[facility] BDWZEHEBZD0629 [place], [place] [address]Qz# [phone] Chloride molar conc 94 98-107 MMOL/L Low 08-31-2018 [facility] (85745) Comment: Performed By: #### L500.0140 0, L500.77520, L550.80908 ####[facility] SUDNPSORNK5743 [place], [place] [address]Cx# [phone] CO2 molar conc 28 21-32 MMOL/L Normal 08-31-2018 [facility] (90251) Comment: Performed By: #### L500.0140 0, L500.65022, L550.74183 ####[facility] NAAOXUMMWI0546 [place], [place] [address]Cd# [phone] Creatinine mass conc 3.850 0.510-0.950 MG/DL High 019 [facility] (00 000) Comment: Result Comment: Patients rec eiving either N-Acetylcysteine (NAC) orMetamizole prior to venipu ncture, may have falsely depressedresults. Performed By: #### L500.0140 0, L500.39946, L550.04171 ####[facility] SBGBGKVRFM6511 [place], [place] [address]Vs# [phone] Globulin mass conc (S) 3.3 2.2-4.2 GM/DL Normal 019 [facility] (00 000) Comment: Performed By: #### L500.0140 0, L500.33424, L550.53109 ####[facility] COJNYCIUDL2289 [place], [place] [address]Sm# [phone] Glucose mass conc 133 70-100 MG/DL High 08-31-2018 [facility] (14352) Comment: Result Comment: 70-100- Norm al Fasting; 100-125 Impaired Fasting; greaterthan 126 on more than one result- Diabetes. ADA guidelines.Results may be falsely elevated afte r the administration ofSulfapyridine.Results may be falsely depressed after t he administration ofSulfasalazine. Performed By: #### L500.0140 0, L500.27530, L550.86901 ####[facility] RURDWBXPBQ8929 [place], [place] [address]Xj# [phone] Potassium molar conc 7.0 3.5-5.1 MMOL/L Critically high [place] (60859) Comment: Result Comment: Slight Hemol ysis, Result may be falsely increased. CriticalResult(s) Called at: 18:00:05 on 08/31/2018 by: milady hinson and read back by: TAE Roger Performed By: #### L500.0140 0, L500.57350, L550.74978 ####[facility] LRXHNGTZUZ6254 [place], [place] [address]Ns# [phone] Protein mass conc 6.2 6.0-8.5 GM/DL Normal 08-31-2018 [facility] (57700) Comment: Performed By: #### L500.0140 0, L500.39740, L550.41618 ####[facility] IURDXWCYTC2612 [place], [place] [address]Wj# [phone] SGOT (AST) 102 8-34 U/L High 08-31-2018 [facility] (97158) Comment: Result Comment: Slight Hemol ysis, Result may be falsely increased.RESULTS MAY BE FALSELY DEPRESSED AFT ER THE ADMINISTRATION OFSULFASALAZINE AND/OR SULFAPYRIDINE. Performed By: #### L500.0140 0, L500.80936, L550.50856 ####[facility] EHXOFDQYPK5741 [place], [place] [address]Ku# [phone] Sodium molar conc 129 136-145 MMOL/L Low 08-31-2018 [facility] (12830) Comment: Performed By: #### L500.0140 0, L500.97088, L550.98113 ####[facility] WGTKDWEQGF3359 [place], [place] [address]Ph# [phone] Urea nitrogen mass conc 62 7-26 MG/DL High 2018 [facility] (68859) Comment: Performed By: #### L500.0140 0, L500.23938, L550.84167 ####[facility] EYKCBZZGPF0742 [place], [place] [address]Au# [phone] Urea nitrogen/Creatinine mass 16 15-24 mg/mg Normal 08-31-2018 [facility] [place] (00 000) Comment: Performed By: #### L500.0140 0, L500.01875, L550.76179 ####[facility] EKKEROOGTK0878 [place], [place] [address]Lt# [phone] cbc w/diff on 08-31 BASO ABS 0.10 0-0.2 K/CU MM Normal 08-31-2018 [facility] [place] (06115) Comment: Performed By: #### L200.0005 0 ####[facility] IUKQPXQJUL8892 [place], [place] [address]Jc# Basophils/100 WBC (Bld) 0.3 0-2 % Normal 2018 [place] (89072) Comment: Performed By: #### L200.0005 0 ####[facility] VKSGGDJWMJ207[address] [place] [address]Xa# EOS ABS 0.30 0-0.5 K/CU MM Normal 08-31-2018 [facility] [place] (26744) Comment: Performed By: #### L200.0005 0 ####[address] [address]Cc# Eosinophils/100 WBC (Bld) 1.4 0-5 % Normal 08-19 [facility] (32328) Comment: Performed By: #### L200.0005 0 ####[facility] GCIASJRSNG[address] [place] [address]Cf# [phone] Erythrocyte distribution width 16.5 11-14.5 % High 08-31-2018 Ratio (RBC) [place] ( 77500) Comment: Performed By: #### L200.0005 0 ####[facility] SKUWZKYJQX[address] [place] [address]Ad# Hematocrit Volume Fraction 35.7 35.0-47.0 % Normal ([facility]) [place] (00 000) Comment: Performed By: #### L200.0005 0 ####[facility] ISLESDIVON[address] [place] [address]Pu# [phone] Hemoglobin mass conc (Bld) 11.1 11.5-15.5 G/DL Low [place] (00 000) Comment: Performed By: #### L200.0005 0 ####[facility] FHGUYWPLQH[address] [place] [address]Cp# IMMATR GRAN ABS 0.10 Less than 2 K/CU MM Normal 08-31-2018 [facility] ( 000) Comment: Performed By: #### L200.0005 0 ####[address] [address]Xt# IMMATURE GRAN % 0.6 Less than 2 % Normal 08-31-2018 [facility] (06810) Comment: Performed By: #### L200.0005 0 ####[address] [address]Mn# Lymphocytes #/vol (Bld) 4.10 0.9-4.4 K/CU MM Normal 2018 [facility] (00 000) Comment: Performed By: #### L200.0005 0 ####[address] [address]Km# Lymphocytes/100 WBC (Bld) 18.5 20-40 % Low 08-19 [facility] (68535) Comment: Performed By: #### L200.0005 0 ####[address] [address]As# [phone] MCHC mass conc (RBC) 31.1 32.0-36.0 GM/DL Low 9 [facility] (75599) Comment: Performed By: #### L200.0005 0 ####[address] [address]Dy# MCV Entitic volume (RBC) 83.6 80.0-99.0 fl Normal 08-31 [facility] (00 000) Comment: Performed By: #### L200.0005 0 ####[address] [address]Ga# MONO ABS 2.20 0.1-1.1 K/CU MM High 08-31-2018 [facility] (63870) Comment: Performed By: #### L200.0005 0 ####[facility] TIQSDEMTNX2019 [place], [place] [address]Ni# [phone] Monocytes/100 WBC (Bld) 9.8 2-10 % Normal [facility] (57481[facility] Comment: Performed By: #### L200.0005 0 ####[facility] CALPFPRARC9217 [place], [place] [address]Ci# NEUTROPHIL ABS 15.50 2.0-8.3 K/CU MM High 08-31-2018 [facility] (72102) Comment: Performed By: #### L200.0005 0 ####[facility] QKFDRERDYC[address] [place] [address]Yy# Neutrophils/100 WBC (Bld) 69.4 45-75 % Normal 08-19 [facility] (62305) Comment: Performed By: #### L200.0005 0 ####[facility] UYNNFGIOHF[address] [place] [address]Qg# [phone] Nucleated RBC/100 WBC 0.0 Less than 1 % Normal 2018 Ratio (Bld) [place] ( 03261) Comment: Performed By: #### L200.0005 0 ####[facility] FAIORUDPTP[address] [place] [address]Yl# Platelet mean volume 11.0 9.4-12.4 fL Normal 9 Entitic volume (Bld) [place] (26153) Comment: Performed By: #### L200.0005 0 ####[facility] LXSSWKKTIN418[address] [place] [address]Px# [phone] Platelets #/vol (Bld) 401 150-450 K/CU MM Normal 08-31-19 [facility] (00 000) Comment: Performed By: #### L200.0005 0 ####[facility] JZQOMHBOVC[address] [place] [address]Ru# [phone] RBC #/vol (Bld) 4.27 3.90-5.30 M/CU MM Normal 08-31-2018 [facility] (62843) Comment: Performed By: #### L200.0005 0 ####[facility] LSRBSBTEOE5939 [place], [place] [address]Wh# WBC #/vol (Bld) 22.3 4.5-11.0 K/CUMM High 08-31-2018 [facility] (47021) Comment: Performed By: #### L200.0005 0 ####[facility] CCMXWHNQFO9282 [place], [place] [address]Vm# [phone] progress on 2018-07 Protein HNO ID: [id number]: Ayana ([facility]) ShannonService: Normal 07-23-2018 [facility] (none)Author Type: Nurse PractitionerType: Progress Clinic conc NotesFiled: 07/23/2018 1:20 PMNote Text:Crystal Cramer is a 62 year old female. Patient presents ([address]) with:New PatientPMH: DM, Fibromyalgia, HTN, HyperlipidemiaCrystal is [...] FIRST FOR MY DOCUMENTATION TO PROVIDE CARE, HELPINSUPoptank Studios AND COLLEAGUES TO HAVE NEUROLOGICAL CONTEXT OF [...] BPMetformin Other: See Comments Not Specified Side Effect/Vstsroczkut07/10/2017 Past Updates...MigrainesPAST MEDICAL HISTORY:ACTIVE PROBLEM LISTTuberculosis of Lung, Nodular, Confirmation UnspecifiedDiarrheaNausea AND VomitingPAST SURGICAL HISTORYProcedure Laterality Date- APPENDECTOMY 1973[facility] Colonoscopy- COLONOSCOPY W/BX [...] motor and sensory exam is symmetricEqual v1,V2, U6Lacumr is in midline. No tongue fasciculation.Palate is upgoing bilaterallySCM and trapezius are full.Shoulder shrug intact?Motor Exam:?Upper extremity motor exam is 5/5 in deltoid, 5/5 triceps 5/5biceps, 5/5wrist extension, and 5/5 hand investment fund manager. Finger extensor 5/5. Finger flexor5/5. Pronation and [...] Babinski). No clonus of ankles.?Coordination:Finger-to- nose-finger and bhgx-lb-swhv intact bilaterally. No ataxia ofarms. No limb [...] visit, with more than 50% of the jsrokekth-pu-veci time of the visit in counseling / coordination of care.ACTIVE PROBLEM LISTTuberculosis of Lung, Nodular, Confirmation UnspecifiedDiarrheaNausea AND VomitingNo orders found for this visit on 07/23/18.Ayana Jamison MSN, SHIRT SORTER, MOLECULAR GENETIC PATHOLOGIST-C1. This office note has been dictated and [...] 07-23-2018 Shauna and (NEN) --------BELACRYSTAL Tricia Arriola ([id number]) 1955 FDat e Time Provider Lprgjxabnf58/5/18 12:45 PM AYANA JAMISON (JOSEP) ANGELINA Fiore During your visit today, we recorded the following information about you: Pulse Respiration Blood (99562) pressure Weight 69/minute 18 /minute 104/46 129.3 [...] Date- APPENDECTOMY 1973- COLONOSCOP W/ OR W/O [facility] SPEC 06/19/2013 Colonoscopy- COLONOSCOPY W/B [...] motor and sensory exam is symmetricEqual v1,V2, R8Vqvypp is in midline. No tongue fascic ulation.Palate is upgoing bilaterallySCM and trapezius are full.Shoulder shrug intact?Motor Exam:?Upp er extremity motor exam is 5/5 in deltoid, 5/5 triceps 5/5biceps, 5/5 wristextension, and 5/5 hand investment fund manager. Finger extensor 5/5. Finger flexor 5/5.Pronation and [...] Babinski). No clonus of ankles.?Coordination:Finger-to- nose-finger and rbyh-cr-sfzu intact bilatera lly. No ataxia of arms.No [...] of d iabetes. In review of her O4Pwjdrpe, she has been diabetic for some time [...] m ore than 50% of the total ccvx-pu-uxwclfxk of the visit in counseling / coordination of care.ACTIVE PROBLEM LISTTuberculosis of Lung, Nodular, Confirmation UnspecifiedDiarrheaNausea AN D VomitingNo orders found for this visit on 07/23/18.Ayana Jamison MSN, SHIRT SORTER, MOLECULAR GENETIC PATHOLOGIST-C1. This office no te has been dictated [...] MONTELUKAST 10 MG TABLET >> Ayana Jamison APRN.FLOW WORKER 07/23/2018 12:17 PM >> AYANA JAMISON Wed [...] 05/23/2018 Disc: Discontinued by PatientEncounter Number: [id number] Status:Closed by AYANA JAMISON on 07/23/18 progress on 2018-05 Protein mass HNO ID: [id number]: Carlyn arriola 05-23-2018 [facility] conc (Cnc Lathe Machine Operator) FulkService: (none)Author Adebayo Type: Nurse PractitionerType: ([id number]) Progress NotesFiled: 05/23/2018 12:48 PMNote Text:HPI Crystal [...] [facility] recommend patient be seen at nearest ED,refused Squad friend present will transport, report called to JOSEP Parra on 2018-05-23 CNCHRISTIE Office Visit Normal 05-23-2018 [place] and (UCWSTR) --------BELACRYSTAL Tricia Arriola ([id number]) 1955 FDat e Time Provider Klnadviauw98/5/18 12:15 PM [facility] During [place] your visit today, we [...] friendpresent will transport , report called to [facility].Carlyn Wu, CNPReferring Provider: SELF [200]Allergies As of Date: 05/23/2018 Noted Allergy Reaction BACTRIM (SULFAMETHOXAZOLE-TRIMETH* 4 - HivesTORADOL (KETOROLAC) 03/22/2006 14 - Other: See Comments Comments: Increase BPCIPROFL OXACIN 06/10/2013 2 - RashFLEXERIL (CYCLOBENZAPRINE) 06/10/2013 2 - RashMETFORMIN 06/28/2017 14 - Other: See Comments Comments: MigrainesDate Reviewed: 05/23/2018Reviewed by: Carole NguyenSelect [facility]) KENROY Henriquez - Fully AssessedReason for Visit: Fall [218] Cmt: pain in left side ribs, fell yesterday into [employer] counter, trouble breathing todayPrimary Visit Diagnosis:Borderline low [...] AND vomiting [R11.2] INVALID FOR*Encounte r Number: [id number] Status:Closed by CARLYN WU CNP on 05/23/18 nino creatinine on 2017-12-31 Creatinine mass conc 1.2 0.7-1.4 mg/dL Normal [address] [facility] (48145) progress on 2017-12 Protein mass HNO ID: [id number]: Carole Kumar rmal 12-31-2017 [facility] Hieu Bashir CtService: (none)Author Clinic Type: (none)Type: Progress [place] NotesFiled: 12/31/2017 12:48 PMNote (09476) Text: Radiology Service Progress NotePATIENT NAME: Crystal OrtizsMRN: [id number] OF SERVICE: December 31, 2017TIME: 12:48 PMPATIENT IDENTITY VERIFICATION COMPLETED USING TWO (2) METHODS: Patientconfirmed name verbally and Date of .PATIENT GENDER DATA: Female. status: : NoBreastfeeding status: NO.PATIENT RELEVANT IMPLANT DATA REVIEWED: YesCONTRAST INDUCED NEPHROPATHY RISK FACTORS: Patient age > 60 yearsCREATININE:CreatinineDate Value Ref Range Grqauv4504/28/2015 0.87 0.51 - 0.95 mg/dL Final04/27/2015 0.86 [...] Report* * *DATE OF Norm al 12-31-2017 [place] RAMO EXAM: Dec 31 2017 9:51AM [facility] 0582 - [facility] SCREENING W RAMO / Fiore (85500) REASON: Other disorders of nervous system * * * * Physician Interpretation * * * *RESULT: #[id number] - KARTIK SCREENING W TOMOBILATERAL DIGITAL SCREENING [...] a staff physician.Maral Kennedy M.D.jr,as/penrad:12/31/2017 14:00:45Imaging Technologist: Jnaneth BLACKMAN)(Sally), [facility] Centerletter sent: Normal over 40Mammogram BI-RADS: 1 NegativeTranscriptionist: MaylinTranscribe Date/Time: Dec 31 2017 9:52ADictated by: FABBY KENNEDY MDThis examination was interpreted and the report reviewed and electronically signed by: MARAL HALLMAN MD on Dec 31 2017 2:00PM [id number] ct chest w ivcon on 2017-12-31 CT CHEST W * * *Final Report* * *DATE OF EXAM: Catrachita landry 12-31-2017 [facility] IVCON Dec 31 2017 12:22PM [facility] 0539 - CT [place] CHEST W IVCON / [id number] REASON: Other disorders of nervous system * [...] represent herniated intra-abdominal fat or a lipomatous lesion.Compressed Air Pile Driver Operator: ABRAM Transcribe Date/Time: Dec 31 2017 2:47PDictated by : VERONICA IBARRA MDThis examination was interpreted and the report reviewed and electronically signed by: VERONICA IBARRA MD on Dec 31 2017 3:07PM [id number] ct abd/pel w ivcon on 2017-12-31 CT ABD/PEL * * *Final Report* * *DATE OF EXAM: December12-31-2017 [facility] IVCON 2017 12:22PM [facility] 0530 - CT ABD/PEL W [facility] IVCON / [place] REASON: Other disorders of nervous (64739) system * * * * Physician Interpretation [...] may be contributing to the patient's symptoms. Compressed Air Pile Driver Operator: ABRAM Transcribe Date/Time: Dec 31 2017 1:21PDictated by : PELON GARRETT MDThis examination was interpreted and the report reviewed and electronically signed by: PELON GARRETT MD on Dec 31 2017 1:32PM [id number] cnco on 2017-12-31 CNCO HNO ID: [id number]: Normal 12-17 [facility] Mammography CoordinatorService: [place] ([id number]) (none)Author Type: PhysicianType: LetterFiled: 01/01/2018 11:32 PMNote Text:December 31, 2017 PID: [id number] [place], [place] [address]Ciie Ms. Cramer,We are pleased to inform you that the results of your recent breastimaging exam on 12/31/2017 are normal. Early detection of cancer is veryimportant. We also understand recommendations regarding breast cancerscreening are controversial. Please discuss with your primary careprovider which strategy is best for you and whether a mammogram is rightfor you.[facility] imaging [facility] and are available for yourcontinuing care.Thank you for allowing us to help in meeting your health care needs.Sincerely,Dr. HallmanInterprejania [facility] (Normal over 40) progress on 2017-12 Protein mass HNO ID: [id number]: Mukul payne 12-18-2017 [place] conc ClineService: (none)Author Type: Clinic PhysicianType: Progress NotesFiled: [place] 12/18/2017 10:45 AMNote Text:FOLLOW UP ([id number]) VISITCHIEF COMPLAINTPatient presents with:Established Patient: nausea, constipationMs. [...] Normal 12-18-2017 [place] and (GASTMN) --------CRYSTAL CRAMER ([id number]) 1955 FDat e Time Provider Department12/18/17 10:10 AM MUKUL STEVEN During Clev eland your visit today, we recorde d the following information about you: Temperature Pulse Blood pressure (98384) Weight 98.3 degrees 79/minut e 139/69 120.8 [...] W IVCONMukul Steven 12/18/2017Referring Provider: YOU PARKS [[id number]]Allergies As of Date: 12/18/2017 Noted Allergy ReactionBACTRIM [...] synd danica [G98.8]Order(s):CREATININE BLD [SQCRET] Order #: [id number] FUTURE KARTIK SCREENING [0308214] Orde r #: [id number] FUTURE CT ABD/PEL W IVCON [[id number]] Order #: [id number] FUTURE CT CHEST W IVCON [127 0700] Order #: [id number] FUTURE iv contrast (radiology procedure)CT Chest ABD/PEL-Inject, [...] nursing protocol in the CT contrast administration [facility].Disp: 1 EachRfl: 0 enteric contrast (radiology procedure)For [...] as designated per enteric contrast guidelinesEncounter Number: [id number] Status:Closed by MUKUL STEVEN DO on 12/18/17 progress on 2017-10 Protein mass HNO ID: [id number]: Cele (Rn) Normal 10-22-2017 [place] leno Vargas, RNService: (none)Author Type: Clinic Registered NurseType: Progress [place] NotesFiled: 10/22/2017 2:24 PMNote ([id number]) Text:SmartPill Test Report - [id number] Test start date: 10/11/2017 9:48 AM Interpretation date: 10/22/2017 Ordering physician: Radha Aaron Information Name: Crystal Cramer ID: [id number] date: 1955 Height ft. in.: 5' 6 [...] Normal 10-22-2017 Honey hammer (GASTMN) --------CRYSTAL CRAMER ([id number]) 1955 [facility] e Time Provider Department10/22/17 CELE VARGAS (RN) GASTMN During your [facility] visit today, we recorded the following information about you:Cele Vargas RN, RN 10/22/2017 2:24 PM ([id number]) [facility]igned[facility] Test Report - [id number] Test start date: 10/11/2017 9:48 AM Interpretation date: 8 Ordering physician: Radha Aaron Information Name: Crystal Cramer ID: [id number] [facility] h date: 1955 Height ft. in.: 5' [...] mouth twice da* LEVOTHYROXINE 50 MCG CAP ENDRE Take by mouth once daily. SERTRALINE 100 [...] FOR*Follow-up and Disposition History RecordedEncounter Bushra mber: [id number] Status:Closed by CELE VARGAS on 10/22/17 cnpn on 2017-10-22 [facility] Normal 10-22-2017 Adebayo (JOSE CARLOS) --------CRYSTAL CRAMER ([id number]) 1955 FDat e Time Provider Department10/22/17 MUKUL STEVENME During your visit Juwan monzon today, we recorded the aldo gooden information about you:Manuel Meza, RN, RN 10/22/2017 5:10 PM ([id number]) SignedPatient is calling Dr. Steven's office to [...] Explained that appeal letter was faxed to [facility] regarding he r IVIG therapy. Offered to [...] By: Manuel Meza RN In Department: [facility]ANPer[facility] Hospitalpradeep As of Date: 10/22/2017 Noted Allergy ReactionBACTRIM [...] on 2017-09 Protein mass conc HNO ID: [id number]: Normal 10-11-2017 [facility] Cele (Rn) Azael Vargas ([id number]) RNService: (none)Author Type: Registered NurseType: Progress NotesFiled: 10/11/2017 10:14 AMNote Text:Referring MD: ?Teodoro Aaron: ?gastroparesisDate of SmartPill Procedure: ?10/11/2017 ?SmartPill ingested withoutdifficulty at 10:00am. ?Discharge instructions completed and given topatient.Return of Equipment: ?Micah Vargas RN Capsule Endoscopy Nurse cnpn on 2017-10-08 CNPN Telephone Normal 10-08-2017 [place] (GASTMN) --------CRYSTAL CRAMER [facility] ([id number]) 1955 FDat e Time Provider Department10/08/17 MUKUL STEVEN GASTME During your [place] visit today, we recorded the following information about you:Manuel Meza RN, RN 10/08/2017 4:16 PM (00 000) SignedContacted [employer] [phone] (option 1 and then option 0) to obtain acopy of patient's denial letter for IVIG. They are to fax to the office today.Manuel Meza, RN, RN 10/08/2017 5:19 PM SignedReceived copy of deng arriola letter from [employer] 10/08/17 and forwarded [facility]Stacey [facility].Allergies As of Date: 10/08/2017 Noted Allergy Reacti onBACTRIM (SULFAMETHOXAZOLE-TRIMETH* 4 - HivesCIPROFLOXACIN 06/10/2013 16 - UnknownFLEXERIL (CYCLOBENZAPRINE) 06/10/2013 16 - UnknownMETFORMIN 06/28/2017 14 - Other: See Comments Comments: MigrainesTORADOL (KETOROLAC) 03/22/2006band aids [Other] 05/27/2007Date Reviewed: 07/31/2017Reviewed by: Mukul Steven - Fully AssessedReason for Visit: Care Coordination [9276] Cmt: Gastroparesis Clinic: Ivig denial letter r [...] cnpn on 2017-09-12 CNPN Telephone Normal 09-12-2017 [place] (GASTMN) --------CRYSTAL CRAMER ([id number]) 1955 [facility] Provider Department09/12/17 MUKUL STEVEN [facility] During your [place] visit today, we recorded the following information [...] Thyrotropin Qn 2.260 0.400-5.500 uU/mL Normal 07-31-2017 [facility] ([id number]) Comment: Performed By: #### CK, FT4, TSH, LD6, HBA1C, LACPYR, AAQTPL, GADCAB, CARNPL, PLTHY ####[facility] L [address] [place], [place] [phone]#### CASRFX , LG1RFX, PARNEO #### [facility] [address] [place], [place] [phone] progress on 2017-07 Protein mass HNO ID: [id number]: Manuel landry 07-31-2017 [facility] (Rn) LAURIE Mezaervice: Clinic (none)Author Type: Registered [place] NurseType: Progress NotesFiled: ([id number]) 07/31/2017 10:55 AMNote Text:Met with patient for [...] RN In Department:GASTROENTEROLOGY Protein mass HNO ID: [id number]: Rayne stone 07-31-2017 [place] leno GuilloryService: Clinic (none)Author Type: Azael morrison PsychologistType: Progress ([id number]) NotesFiled: 07/31/2017 10:40 AMNote Text:Behavioral MedicineDigestive Disease and Surgery InstituteName: Crystal Mallory#: [id number]: 07/31/17Time: [address]Ref[address]: Dr. Cruz for [...] Plasma Thymidine Det View results in Normal [facility] Scanned Documents link [place] ([id number]) when available. Comment: Performed By: #### CK, FT4, TSH, LD6, HBA1C, LACPYR, AAQTPL, GADCAB, CARNPL, PLTHY ####[facility] L [address] [place], [place] [phone]#### CASRFX , LG1RFX, PARNEO #### [facility] [address] [place], [place] [phone] paraneoplast autoabs on 2017-07-31 ACh Receptor Bind Ab 0.00 <=0.02 nmol/L Normal [address] [facility] (30792) Comment: Result Comment: (NOTE)------ ADDITIONAL INFORMATION --This test was developed and its performance characteristicsdetermined by [facility] in a manner consistent with CLIArequirements. This test has not been cleared or approved bythe U.S. Food and Drug Administration. Performed By: #### CK, FT4, TSH, LD6, HBA1C, LACPYR, AAQTPL, GADCAB, CARNPL, PLTHY ####[facility] [place], [place] [phone]#### CASRFX , LG1RFX, PARNEO #### [address] [phone] AChR Ganglionic Neur 0.00 <=0.02 nmol/L Normal [address] [facility] (41121) Comment: Result Comment: (NOTE)------ ADDITIONAL INFORMATION --This test was developed and its performance characteristicsdetermined by [facility] in a manner consistent with CLIArequirements. This test has not been cleared or approved bythe U.S. Food and Drug Administration. Performed By: #### CK, FT4, TSH, LD6, HBA1C, LACPYR, AAQTPL, GADCAB, CARNPL, PLTHY ####[facility] [place], [place] [phone]#### CASRFX , LG1RFX, PARNEO #### [facility] [place], [place] [phone] Amphiphysin Ab, S Negative <1:240 Normal 07-31-2017 [facility] (48242) Comment: Result Comment: (NOTE)------ ADDITIONAL INFORMATION --This test was developed and its performance characteristicsdetermined by [facility] in a manner consistent with CLIArequirements. This test has not been cleared or approved bythe U.S. Food and Drug Administration. Performed By: #### CK, FT4, TSH, LD6, HBA1C, LACPYR, AAQTPL, GADCAB, CARNPL, PLTHY ####[facility] [address] [place], [place] [phone]#### CASRFX , LG1RFX, PARNEO #### [address] [phone] ERINN 1, S Negative <1:240 Normal 07-31-[address] [facility] (00443) Comment: Performed By: #### CK, FT4, TSH, LD6, HBA1C, LACPYR, AAQTPL, GADCAB, CARNPL, PLTHY ####[facility] [address] [place], [place] [phone]#### CASRFX , LG1RFX, PARNEO #### [address] [phone] ERINN 2, S Negative <1:240 Normal 07-31-[address] [facility] (10518) Comment: Result Comment: (NOTE)------ ADDITIONAL INFORMATION --This test was developed and its performance characteristicsdetermined by [facility] in a manner consistent with CLIArequirements. This test has not been cleared or approved bythe U.S. Food and Drug Administration. Performed By: #### CK, FT4, TSH, LD6, HBA1C, LACPYR, AAQTPL, GADCAB, CARNPL, PLTHY ####[facility] [place], [place] [phone]#### CASRFX , LG1RFX, PARNEO #### [facility] [place], [place] [phone] ERINN 3, S Negative <1:240 Normal 07-31-[address] [facility] (56203) Comment: Result Comment: (NOTE)------ ADDITIONAL INFORMATION --This test was developed and its performance characteristicsdetermined by [facility] in a manner consistent with CLIArequirements. This test has not been cleared or approved bythe U.S. Food and Drug Administration. Performed By: #### CK, FT4, TSH, LD6, HBA1C, LACPYR, AAQTPL, GADCAB, CARNPL, PLTHY ####[place] [address] [place], [place] [phone]#### CASRFX , LG1RFX, PARNEO #### [address] [phone] Anti-glial Nuc Ab 1 Negative <1:240 Normal 07-31-[address] [facility] (30058) Comment: Result Comment: (NOTE)------ ADDITIONAL INFORMATION --This test was developed and its performance characteristicsdetermined by [facility] in a manner consistent with CLIArequirements. This test has not been cleared or approved bythe U.S. Food and Drug Administration. Performed By: #### CK, FT4, TSH, LD6, HBA1C, LACPYR, AAQTPL, GADCAB, CARNPL, PLTHY ####[facility] [place], [place] [phone]#### CASRFX , LG1RFX, PARNEO #### [facility] [place], [place] [phone] Ca Ch Bind Ab,N Type 0.00 <=0.03 nmol/L Normal [facility] (47869) Comment: Result Comment: (NOTE)------ ADDITIONAL INFORMATION --This test was developed and its performance characteristicsdetermined by [facility] in a manner consistent with CLIArequirements. This test has not been cleared or approved bythe U.S. Food and Drug Administration. Performed By: #### CK, FT4, TSH, LD6, HBA1C, LACPYR, AAQTPL, GADCAB, CARNPL, PLTHY ####[facility] [place], [place] [phone]#### CASRFX , LG1RFX, PARNEO #### [address] [phone] Ca Chn Bind Ab, P/Q 0.00 <=0.02 nmol/L Normal 07-31-[address] [facility] (14840) Comment: Result Comment: (NOTE)------ ADDITIONAL INFORMATION --This test was developed and its performance characteristicsdetermined by [facility] in a manner consistent with CLIArequirements. This test has not been cleared or approved bythe U.S. Food and Drug Administration. Performed By: #### CK, FT4, TSH, LD6, HBA1C, LACPYR, AAQTPL, GADCAB, CARNPL, PLTHY ####[facility] [place], [place] [phone]#### CASRFX , LG1RFX, PARNEO #### [facility] [place], [place] [phone] CRMP 5 IgG, S Negative <1:240 Normal 07-31-2017 [facility] (61878) Comment: Result Comment: (NOTE)------ ADDITIONAL INFORMATION --This test was developed and its performance characteristicsdetermined by [facility] in a manner consistent with CLSout[facility] Behavioral [facility] Servicesequirewor[facility]. This test has not been cleared or approved bythe U.S. Food and Drug Administration. Performed By: #### CK, FT4, TSH, LD6, HBA1C, LACPYR, AAQTPL, GADCAB, CARNPL, PLTHY ####[facility] L [address] [place], [place] [phone]#### CASRFX , LG1RFX, PARNEO #### [facility] [place], [place] [phone] Interpretive Comment (NOTE) Normal [address] [facility] (02620) Comment: Result Comment: Reflexed maria del carmen t(s) performed per testing algorithm.*The following antibody was ident ified: voltage gatedpotassium channel (VGKC-complex); negative for leucine-rich, glioma inactivated 1 protein-IgG (LGI1) andContactin-associat ed gyahhqo-4-HiL (CASPR2). * The resultsof a positive VGKC-complex antibo dy with negative LGI1 andCASPR2-IgGs needs to be interpreted with caution. Th edetection of the VGKC-complex antibodies in isolation doesnot define an autoimmune neurological disorder. * Aparaneoplastic basis should be considered, according toage, sex, and other risk factors. * References: Sadiq Medina,Garcia JORGENSEN, Otf Chong, Socorro Medina, Oonfre JW, Candelario JE,Eusebio A, Severino griffin AL, Dung RE, Kahlil Chong, Elver HARMAN,Ady VA, Rasheed CJ. Expa nded phenotypes and outcomes [id number] LGI1/CASPR2-IgG positive pat ients. Annals of Ffexrjxrp4653; 82:79-92. * Doyle B, Jeremie M, Karla [...] LGI1 and Caspr2 antibodies.N eurology, 2016; 86; 2147-8761. Performed By: #### CK, FT4, TSH, LD6, HBA1C, LACPYR, AAQTPL, GADCAB, CARNPL, PLTHY ####[facility] L [address] [place], [place] [phone]#### CASRFX , LG1RFX, PARNEO #### [address] [phone] Neur V-G K+ Chann Ab 0.11 <=0.02 nmol/L High [address] [facility] (16960) Comment: Result Comment: (NOTE)------ ADDITIONAL INFORMATION --This test was developed and its performance characteristicsdetermined by [facility] in a manner consistent with CLIArequirements. This test has not been cleared or approved bythe U.S. Food and Drug Administration. Performed By: #### CK, FT4, TSH, LD6, HBA1C, LACPYR, AAQTPL, GADCAB, CARNPL, PLTHY ####[facility] [address] [place], [place] [phone]#### CASRFX , LG1RFX, PARNEO #### [facility] [place], [place] [phone] PARNEO Reflex Tests None. Normal 07-31-[address] [facility] () Comment: Result Comment: (NOTE)------ ADDITIONAL INFORMATION --This test was developed and its performance characteristicsdetermined by [facility] in a manner consistent with CLIArequirements. This test has not been cleared or approved bythe U.S. Food and Drug Administration. Performed By: #### CK, FT4, TSH, LD6, HBA1C, LACPYR, AAQTPL, GADCAB, CARNPL, PLTHY ####[facility] [address] [place], [place] [phone]#### CASRFX , LG1RFX, PARNEO #### [address] [phone] TILE MOLDER 1, S Negative <1:240 Normal 07-31-[address] [facility] (93954) Comment: Result Comment: (NOTE)------ ADDITIONAL INFORMATION --This test was developed and its performance characteristicsdetermined by [facility] in a manner consistent with CLIArequirements. This test has not been cleared or approved bythe U.S. Food and Drug Administration. Performed By: #### CK, FT4, TSH, LD6, HBA1C, LACPYR, AAQTPL, GADCAB, CARNPL, PLTHY ####[facility] [address] [place], [place] [phone]#### CASRFX , LG1RFX, PARNEO #### [facility] [place], [place] [phone] TILE MOLDER 2, S Negative <1:240 Normal 07-31-[address] [facility] (36337) Comment: Result Comment: (NOTE)------ ADDITIONAL INFORMATION --This test was developed and its performance characteristicsdetermined by [facility] in a manner consistent with CLIArequirements. This test has not been cleared or approved bythe U.S. Food and Drug Administration. Performed By: #### CK, FT4, TSH, LD6, HBA1C, LACPYR, AAQTPL, GADCAB, CARNPL, PLTHY ####[facility] [address] [place], [place] [phone]#### CASRFX , LG1RFX, PARNEO #### [facility] [place], [place] [phone] TILE MOLDER Tr, S Negative <1:240 Normal 07-31-[address] [facility] (57687) Comment: Result Comment: (NOTE)------ ADDITIONAL INFORMATION --This test was developed and its performance characteristicsdetermined by [facility] in a manner consistent with CLIArequirements. This test has not been cleared or approved bythe U.S. Food and Drug Administration. Performed By: #### CK, FT4, TSH, LD6, HBA1C, LACPYR, AAQTPL, GADCAB, CARNPL, PLTHY ####[facility] [address] [place], [place] [phone]#### CASRFX , LG1RFX, PARNEO #### [facility] [place], [place] [phone] Striational Ab, S Negative <1:120 Normal 07-31-2017 [facility] (68148) Comment: Result Comment: (NOTE)------ ADDITIONAL INFORMATION --This test was developed and its performance characteristicsdetermined by [facility] in a manner consistent with CLIArequirements. This test has not been cleared or approved bythe U.S. Food and Drug Administration. Performed By: #### CK, FT4, TSH, LD6, HBA1C, LACPYR, AAQTPL, GADCAB, CARNPL, PLTHY ####[facility] [address] [place], [place] [phone]#### CASRFX , LG1RFX, PARNEO #### [facility] [place], [place] [phone] lgi1-igg reflex on 2017-07-31 LGI1-IGG CBA SERUM Negative Negative Normal 07-31-[address] [facility] (51077) Comment: Result Comment: (NOTE)------ ADDITIONAL INFORMATION --This test was developed and its performance characteristicsdetermined by [facility] in a manner consistent with CLIArequirements. This test has not been cleared or approved bythe U.S. Food and Drug Administration. Performed By: #### CK, FT4, TSH, LD6, HBA1C, LACPYR, AAQTPL, GADCAB, CARNPL, PLTHY ####[facility] [address] [place], [place] [phone]#### CASRFX , LG1RFX, PARNEO #### [facility] [place], [place] [phone] ld on 2017-07-31 LD 241 135-214 U/L High 07-31-[address] [facility] (40142) Comment: Performed By: #### CK, FT4, TSH, LD6, HBA1C, LACPYR, AAQTPL, GADCAB, CARNPL, PLTHY ####[facility] [place], [place] [phone]#### CASRFX , LG1RFX, PARNEO #### [facility] [place], [place] [phone] lactate/pyruvate on 2017-07-31 Lactate molar conc 2.1 0.5-2.2 mmol/L Normal 07-31-[address] [facility] (80857) Comment: Performed By: #### CK, FT4, TSH, LD6, HBA1C, LACPYR, AAQTPL, GADCAB, CARNPL, PLTHY ####[facility] [place] [facility] [place], [place] [phone]#### CASRFX , LG1RFX, PARNEO #### [facility] [place], [place] [phone] Pyruvate 0.15 0.03-0.08 mmol/L High 07-31-[address] [facility] (19366) Comment: Result Comment: Specimen was not treated within the desired 30 minute time. Pyruvate result may be false ly decreased and lactate result may be falsely elevated. Performed By: #### CK, FT4, TSH, LD6, HBA1C, LACPYR, AAQTPL, GADCAB, CARNPL, PLTHY ####[facility] [place], [place] [phone]#### CASRFX , LG1RFX, PARNEO #### [facility] [place], [place] [phone] hemoglobin a1c on Glucose mass conc >240 mg/dL Normal 07-31-2017 [facility] (84010) Comment: Result Comment: eAG: (Estima patrick average glucose) is a calculated value from HgbA1c and is claims representative of the average blood glucose level in the last 2-3 month period. Performed By: #### CK, FT4, TSH, LD6, HBA1C, LACPYR, AAQTPL, GADCAB, CARNPL, PLTHY ####[facility] [place], [place] [phone]#### CASRFX , LG1RFX, PARNEO #### [facility] [place], [place] [phone] Hemoglobin A1c/Hemoglobin.total 10.7 4.3-5.6 % High 07-31-2017 [facility] mass fraction (Bld) [place] (53718) Comment: Result Comment: [place] [employer] guidelines indicate that patients with HgbA1c in the range 5.7-6.4% are at increased risk for development of diabetes, and intervention by lifestyle modification may be beneficial. HgbA1c greater o r equal to 6.5% is considered diagnostic of diabetes. Performed By: #### CK, FT4, TSH, LD6, HBA1C, LACPYR, AAQTPL, GADCAB, CARNPL, PLTHY ####[facility] [place], [place] [phone]#### CASRFX , LG1RFX, PARNEO #### [facility] [place], [place] [phone] glutamic ac decar ab on 2017-07-31 Glutamic Ac Decar Ab <5.0 <5.0 Normal [address] [facility] (54112) Comment: Performed By: #### CK, FT4, TSH, LD6, HBA1C, LACPYR, AAQTPL, GADCAB, CARNPL, PLTHY ####[facility] [place], [place] [phone]#### CASRFX , LG1RFX, PARNEO #### [facility] [place], [place] [phone] free t4 on T4 free mass conc 1.2 0.9-1.7 ng/dL Normal 07-31-2017 [facility] (14590) Comment: Performed By: #### CK, FT4, TSH, LD6, HBA1C, LACPYR, AAQTPL, GADCAB, CARNPL, PLTHY ####[facility] L [address] [place], [place] [phone]#### CASRFX , LG1RFX, PARNEO #### [facility] [phone] cnov on 2017-07-31 CNOV Office Visit Normal 07-31-2017 [place] and (GASTMN) --------[facility] ([id number][facility] 1955 FDat e Time Provider Luetrarrli56/13/17 10:00 AM MUKUL STEVEN GASTMN During Clev and your visit today, we recorde d the following information about you: Temperature Pulse Blood pressure (21374) Weight 98.6 degrees 68/minut e 175/87 107 kg Height 1.676 mMsaul Steven DO 07/31/2017 10:10 AM SignedGASTROPARESIS CONSULTP [facility] Parks [...] mg 2x per day (taking for 2years); [place] 4x per day (20 years). Diet: eats [...] Bulking Agents (Metamucil,Citrucel, Fibercon): No- Osmotic Laxat ul (MOM, Polyethylene glycol (PEG), lactulose,sorbitol,MiraLax, Chronulal, Cephulac,Xylitol) [...] mg 2x per day(taking for 2 years); [place] 4x per day (20 years)Drug use- History or current drug use (Marijuana, Cocaine, Heroine , etc...) NoEating Disorders- Does the patient have a history of eating disorders NoPsychiatric Diso rders- Does the patient have a history of psychiatric disorders including PTSD: NoNutrition- Has the p atient met with a leather dresser for diet recommendations withGastroparesis? No - Jejunostomy [...] Cramer Age [age] year old MRN [id number] ConsultTest Date Completed ResultsLabsEGD [facility] Findings:The examined [...] .?IMPRESSION:Markedly delayed solid gastric emptying.Gastric Emptying Study [facility] Findings:Initially static images were obtained after [...] the end of 3 hours.XR Upper GI [facility] Impression:1. Findings described above con sistent with gastritis and duodenitis withmultiple small superficial ulcerations and mucosal fold thickening. No largeulcers or masses are identified.2. Multiple spontaneous episodes of GE r eflux to the level above the clavicles.There also are tertiary contractions consistent with presbyesophagus. Noevidence of esophageal ulceration or stricture is seen. Correlate clinically.3 . Chronic changes as described above.ConsultsGI [address] Harvey Belcher, [facility] SUBJECTIVE: Crystal chen s last seen [...] HISTORYProcedure Laterality Date- COLONOSCOP W/ OR W/O [facility] SPEC 06/19/2013 Colonoscopy- COLONOSCOPY W/BX [...] mg tabletMukul Steven DO2016Referring Provider: YOU PARKS [[id number]]Allergies As of Date: 07/31/2017 Noted Aller gy ReactionBACTRIM (SULFAMETHOXAZOLE- TRIMETH*07/31/2017 4 - HivesCIPROFLOXACIN 3 16 - UnknownFLEXERIL (CYCLOBENZAPRINE) 06/10/2013 16 - UnknownMETFORMIN 06/28/2017 14 - Other: See Azael gardiner Comments: MigrainesTORADOL (KETOROLAC) 03/22/2006band aids [Other] 05/27/2007Date Reviewed: Reviewed by: Mukul Steven - Fully AssessedReason for Visit: Consult [502] Cmt: Gastropar esisPrimary Visit Diagnosis:Gastroparesis [K31.84]Order(s):CK CREATINE KINASE [SQCK] Order #: [id number] FUTURE LD LACTATE DEHYDRO [SQLD6] Order #: [id number] FUTURE HGB A1C [LPLET1U] Order #: [id number] FUTURE TSH BLD [SQTSH] Order #: [id number] FUTURE T4 FREE/FREE THYROX [SQFT4] Order #: [id number] FUTURE PYRUVATE+LACTATE BL [SQLACPYR] Order #: [id number] FUTURE AMINO ACID QUANT BLD [SQAAQTPL] Or batsheva #: [id number] FUTURE CARNITINE FREE/TOTAL, PLASMA [SQCARNPL] Order #: [id number] FUTURE PARANEOPLA ST AUTOABS [SQPARNEO] Order #: [id number] FUTURE GLUTAMIC AC DECARBOXYLASE AB [SQGADCAB] Order #: [id number] FUTURE PLASMA THYMIDINE DETERMINATION [SQPLTHY] Order #: [id number] FUTURE CAPSULE ENDOSCOPY SMA RT [4861295] Order #: [id number] FUTURE mirtazapine (REMERON) 15 mg tabletTake 1 [...] Status:Closed by MUKUL STEVEN DO on 10/01/16 [facility] Office Visit Normal 07-31-2017 Shauna colón (SVEN) --------CRYSTAL CRAMER [facility] ([id number]) 1955 [facility] e Time Provider Fctsnrknsm06/13/17 9:00 AM RAYNE COOK During your visit today, we recorded the following information about you:Rayne Odom, PHD ([id number]) 07/31/2017 10:40 AM [facility] Crystal Mallory#: [id number]: 07/19 11/02Time: [address] hourRef[address] by: Dr. Cruz [...] benefitsof exercise.Rayne Odom, Ph.D.Referring Provider: MUKUL RUIZ [[id number]]Allergies As of Date: 07/31/2017 Noted Allergy ReactionBACTRIM [...] Skip nd (GASTMN) --------[facility]ST[facility] CR[facility] ([id number]) 1955 FDat e Time Provider Jtjayyqiwf51/13/17 10:30 AM NURSE PT ED KOBE GASTMN [...] In Department: GASTROENTEROLOGYReferring Pr ovider: HARVEY BELCHER [[id number]]Allergies As of Date: 07/31/2017 Noted Allergy ReactionBACTRI [...] act/vol 54 42-196 U/L Normal 07-31-2017 [facility] (48383) Comment: Result Comment: Please note the updated, gender-specific reference range for this test (effective 016). Performed By: #### CK, FT4, TSH, LD6, HBA1C, LACPYR, AAQTPL, GADCAB, CARNPL, PLTHY ####[facility] L [address] [place], [place] [phone]#### CASRFX , LG1RFX, PARNEO #### [facility] [address] [place], [place] [phone] caspr2-igg reflex o n 2017-07-31 CASPR2-IGG CBA SERUM Negative Negative Normal [address] [facility] (93187) Comment: Result Comment: (NOTE)------ ADDITIONAL INFORMATION --This test was developed and its performance characteristicsdetermined by [facility] in a manner consistent with CLIArequirements. This test has not been cleared or approved bythe U.S. Food and Drug Administration. Performed By: #### CK, FT4, TSH, LD6, HBA1C, LACPYR, AAQTPL, GADCAB, CARNPL, PLTHY ####[facility] [address], [place] [phone]#### CASRFX , LG1RFX, PARNEO #### [facility] [address] [place], [place] [phone] carnitine fr/tot, pl on 2017-07-31 Carnitine Interp (NOTE) Normal 07-31-2017 [facility] (79898) Comment: Result Comment: This assay o f [...] characteristics determinedby the Pathology and Laboratory Medicine [place] at the [facility]. The U.S. Food and Drug Administration has not approved orcleared this test , however, FDA clearance or approval is not currentlyrequired for clinic al use. Performed By: #### CK, FT4, TSH, LD6, HBA1C, LACPYR, AAQTPL, GADCAB, CARNPL, PLTHY ####[facility] [address], [place] [phone]#### CASRFX , LG1RFX, PARNEO #### [facility] [place], [place] [phone] Carnitine Review Reviewed by Mayo Collier 07-19 [facility] MD Kayode, PhD Marcell jang (69455) (35959) Comment: Performed By: #### CK, FT4, TSH, LD6, HBA1C, LACPYR, AAQTPL, GADCAB, CARNPL, PLTHY ####[facility] [address] [place], [place] [phone]#### CASRFX , LG1RFX, PARNEO #### [facility] [place], [place] [phone] Free L-Carnitine 29 22-52 umol/L Normal 07-31-2017 [facility] (03399) Comment: Performed By: #### CK, FT4, TSH, LD6, HBA1C, LACPYR, AAQTPL, GADCAB, CARNPL, PLTHY ####[facility] [place], [place] [phone]#### CASRFX , LG1RFX, PARNEO #### [facility] [place], [place] [phone] Free/Tot Carn Ratio 0.725 0.7-0.9 Normal 07-31-[address] [facility] (17863) Comment: Performed By: #### CK, FT4, TSH, LD6, HBA1C, LACPYR, AAQTPL, GADCAB, CARNPL, PLTHY ####[facility] [place], [place] [phone]#### CASRFX , LG1RFX, PARNEO #### [facility] [place], [place] [phone] Total L-Carnitine 40 27-66 umol/L Normal 07-31-2017 [facility] (98146) Comment: Performed By: #### CK, FT4, TSH, LD6, HBA1C, LACPYR, AAQTPL, GADCAB, CARNPL, PLTHY ####[facility] [address] [place], [place] [phone]#### CASRFX , LG1RFX, PARNEO #### [facility] [place], [place] [phone] amino acids quant,pl on 2017-07-31 Alanine 389 177-583 um/L Normal 07-31-[address] [facility] (47417) Comment: Performed By: #### CK, FT4, TSH, LD6, HBA1C, LACPYR, AAQTPL, GADCAB, CARNPL, PLTHY ####[facility] [place], [place] [phone]#### CASRFX , LG1RFX, PARNEO #### [facility] [place], [place] [phone] Alloisoleucine 0 0-2 um/L Normal 07-31-2017 [facility] (17130) Comment: Performed By: #### CK, FT4, TSH, LD6, HBA1C, LACPYR, AAQTPL, GADCAB, CARNPL, PLTHY ####[facility] [place], [place] [phone]#### CASRFX , LG1RFX, PARNEO #### [facility] [place], [place] [phone] Alpha-aminoadipic Ac 0 0-6 um/L Normal [address] [facility] (48918) Comment: Performed By: #### CK, FT4, TSH, LD6, HBA1C, LACPYR, AAQTPL, GADCAB, CARNPL, PLTHY ####[facility] [address] [place], [place] [phone]#### CASRFX , LG1RFX, PARNEO #### [facility] [place], [place] [phone] Review Reviewed by Argentina Normal 07-31-2017 [facility] Jodee, Ph.D. Suman case (55136) Comment: Performed By: #### CK, FT4, TSH, LD6, HBA1C, LACPYR, AAQTPL, GADCAB, CARNPL, PLTHY ####[facility] [address] [place], [place] [phone]#### CASRFX , LG1RFX, PARNEO #### [facility] [place], [place] [phone] Arginine 19 15-128 um/L Normal 07-31-[address] [facility] (35537) Comment: Performed By: #### CK, FT4, TSH, LD6, HBA1C, LACPYR, AAQTPL, GADCAB, CARNPL, PLTHY ####[facility] [address] [place], [place] [phone]#### CASRFX , LG1RFX, PARNEO #### [facility] [place], [place] [phone] Asparagine 30 35-74 um/L Low 07-31-[address] [facility] (41194) Comment: Performed By: #### CK, FT4, TSH, LD6, HBA1C, LACPYR, AAQTPL, GADCAB, CARNPL, PLTHY ####[facility] [address] [place], [place] [phone]#### CASRFX , LG1RFX, PARNEO #### [facility] [place], [place] [phone] Aspartic Acid 6 1-25 um/L Normal 07-31-2017 [facility] (97547) Comment: Performed By: #### CK, FT4, TSH, LD6, HBA1C, LACPYR, AAQTPL, GADCAB, CARNPL, PLTHY ####[facility] [address] [place], [place] [phone]#### CASRFX , LG1RFX, PARNEO #### [facility] [place], [place] [phone] Citrulline 24 12-55 um/L Normal 07-31-[address] [facility] (05213) Comment: Performed By: #### CK, FT4, TSH, LD6, HBA1C, LACPYR, AAQTPL, GADCAB, CARNPL, PLTHY ####[facility] [address] [place], [place] [phone]#### CASRFX , LG1RFX, PARNEO #### [facility] [place], [place] [phone] Cystine 42 5-82 um/L Normal 07-31-[address] [facility] (53690) Comment: Performed By: #### CK, FT4, TSH, LD6, HBA1C, LACPYR, AAQTPL, GADCAB, CARNPL, PLTHY ####[facility] [address] [place], [place] [phone]#### CASRFX , LG1RFX, PARNEO #### [facility] [place], [place] [phone] Glutamic Acid 130 10-131 um/L Normal 07-31-2017 [facility] (75661) Comment: Performed By: #### CK, FT4, TSH, LD6, HBA1C, LACPYR, AAQTPL, GADCAB, CARNPL, PLTHY ####[facility] [address] AveCselect [facility], [place], [place] [phone]#### CASRFX , LG1RFX, PARNEO #### [facility] [place] [phone] Glutamine 391 205-756 um/L Normal 07-31-[address] [facility] (44685) Comment: Performed By: #### CK, FT4, TSH, LD6, HBA1C, LACPYR, AAQTPL, GADCAB, CARNPL, PLTHY ####[facility] [address] [address], [place] [phone]#### CASRFX , LG1RFX, PARNEO #### [facility] [place], [place] [phone] Glycine 139 151-490 um/L Low 07-31-[address] [facility] (86772) Comment: Performed By: #### CK, FT4, TSH, LD6, HBA1C, LACPYR, AAQTPL, GADCAB, CARNPL, PLTHY ####[facility] [address], [place] [phone]#### CASRFX , LG1RFX, PARNEO #### [facility] [place], [place] [phone] Histidine 55 72-124 um/L Low 07-31-[address] [facility] (69962) Comment: Performed By: #### CK, FT4, TSH, LD6, HBA1C, LACPYR, AAQTPL, GADCAB, CARNPL, PLTHY ####[facility] [address], [place] [phone]#### CASRFX , LG1RFX, PARNEO #### [facility] [place], [place] [phone] Hydroxylysine 1 0 um/L High 07-31-2017 [facility] (75111) Comment: Performed By: #### CK, FT4, TSH, LD6, HBA1C, LACPYR, AAQTPL, GADCAB, CARNPL, PLTHY ####[facility] [place], [place] [phone]#### CASRFX , LG1RFX, PARNEO #### [facility] [place], [place] [phone] Hydroxyproline 10 0-53 um/L Normal 07-31-2017 [facility] (85875) Comment: Performed By: #### CK, FT4, TSH, LD6, HBA1C, LACPYR, AAQTPL, GADCAB, CARNPL, PLTHY ####[facility] [place], [place] [phone]#### CASRFX , LG1RFX, PARNEO #### [facility] [place], [place] [phone] Interpretation (NOTE) Normal 07-31-2017 [facility] (20562) Comment: Result Comment: THIS PLASMA AMINO ACID ANALYSIS SHOWS LOW LEVELS OF SEVERAL AMINOACIDS SUGGESTING REDUCE D DIETARY AMINO ACID INTAKE. Date of Analysis:08/02/17 Date of Re view: 08/02/17 Reference intervals from Veronica Thrasher, Christina MG, Floyd GEORGE, marsha CROCKER: Biochemical Genetics: A Laboratory Manual, Copyright [address] by [facility] [employer] Reference intervals not established for some ami no acids. This test was developed and its performance characteristics determined by [facility]'s Jenny العلي [facility] Pathology and [facility] ([facility]). It has not been cleared or approved by the FDA. -[facility] is regulated under CLIA as qualified to perform high-co mplexity testing. This test is used for clinical purposes. It should not be r egarded as investigational or for research. Performed By: #### CK, FT4, TSH, LD6, HBA1C, LACPYR, AAQTPL, GADCAB, CARNPL, PLTHY ####[facility] [address], [place] [phone]#### CASRFX , LG1RFX, PARNEO #### [facility] [place], [place] [phone] Isoleucine 51 30-108 um/L Normal 07-31-[address] [facility] (84012) Comment: Performed By: #### CK, FT4, TSH, LD6, HBA1C, LACPYR, AAQTPL, GADCAB, CARNPL, PLTHY ####[facility] [address], [place] [phone]#### CASRFX , LG1RFX, PARNEO #### [facility] [place], [place] [phone] Leucine 83 72-201 um/L Normal 07-31-[address] [facility] (21925) Comment: Performed By: #### CK, FT4, TSH, LD6, HBA1C, LACPYR, AAQTPL, GADCAB, CARNPL, PLTHY ####[facility] [address] [place], [place] [phone]#### CASRFX , LG1RFX, PARNEO #### [facility] [place], [place] [phone] Lysine 116 116-296 um/L Normal 07-31-[address] [facility] (63071) Comment: Performed By: #### CK, FT4, TSH, LD6, HBA1C, LACPYR, AAQTPL, GADCAB, CARNPL, PLTHY ####[facility] [address] [place], [place] [phone]#### CASRFX , LG1RFX, PARNEO #### [facility] [place], [place] [phone] Methionine 13 10-42 um/L Normal 07-31-[address] [facility] (30082) Comment: Performed By: #### CK, FT4, TSH, LD6, HBA1C, LACPYR, AAQTPL, GADCAB, CARNPL, PLTHY ####[facility] [address] [place], [place] [phone]#### CASRFX , LG1RFX, PARNEO #### [facility] [place], [place] [phone] Ornithine 73 48-195 um/L Normal 07-31-[address] [facility] (61905) Comment: Performed By: #### CK, FT4, TSH, LD6, HBA1C, LACPYR, AAQTPL, GADCAB, CARNPL, PLTHY ####[facility] [address] [place], [place] [phone]#### CASRFX , LG1RFX, PARNEO #### [facility] [place], [place] [phone] Phenylalanine 49 35-85 um/L Normal 07-31-2017 [facility] (72364) Comment: Performed By: #### CK, FT4, TSH, LD6, HBA1C, LACPYR, AAQTPL, GADCAB, CARNPL, PLTHY ####[facility] [address] [place], [place] [phone]#### CASRFX , LG1RFX, PARNEO #### [facility] [place], [place] [phone] Proline 229 97-329 um/L Normal 07-31-[address] [facility] (52302) Comment: Performed By: #### CK, FT4, TSH, LD6, HBA1C, LACPYR, AAQTPL, GADCAB, CARNPL, PLTHY ####[facility] [address] [place], [place] [phone]#### CASRFX , LG1RFX, PARNEO #### [facility] [facility] LawnKana [place], [place] [phone] Sarcosine 0 0 um/L Normal 07-31-[address] [facility] (19670) Comment: Performed By: #### CK, FT4, TSH, LD6, HBA1C, LACPYR, AAQTPL, GADCAB, CARNPL, PLTHY ####[facility] [address] [place] [address], [place] [phone]#### CASRFX , LG1RFX, PARNEO #### [facility] [place], [place] [phone] Serine 59 58-181 um/L Normal 07-31-[address] [facility] (71420) Comment: Performed By: #### CK, FT4, TSH, LD6, HBA1C, LACPYR, AAQTPL, GADCAB, CARNPL, PLTHY ####[facility] [address] [place], [place] [phone]#### CASRFX , LG1RFX, PARNEO #### [facility] [place], [place] [phone] Taurine 61 54-210 um/L Normal 07-31-[address] [facility] (08569) Comment: Performed By: #### CK, FT4, TSH, LD6, HBA1C, LACPYR, AAQTPL, GADCAB, CARNPL, PLTHY ####[facility] [address] [place], [place] [phone]#### CASRFX , LG1RFX, PARNEO #### [facility] [place], [place] [phone] Threonine 59 60-225 um/L Low 07-31-[address] [facility] (64764) Comment: Performed By: #### CK, FT4, TSH, LD6, HBA1C, LACPYR, AAQTPL, GADCAB, CARNPL, PLTHY ####[facility] [place], [place] [phone]#### CASRFX , LG1RFX, PARNEO #### [facility] [place], [place] [phone] Tyrosine 51 34-112 um/L Normal 07-31-[address] [facility] (90145) Comment: Performed By: #### CK, FT4, TSH, LD6, HBA1C, LACPYR, AAQTPL, GADCAB, CARNPL, PLTHY ####[facility] [place], [place] [phone]#### CASRFX , LG1RFX, PARNEO #### [facility] [place], [place] [phone] Valine 175 119-336 um/L Normal 07-31-[address] [facility] (12223) Comment: Performed By: #### CK, FT4, TSH, LD6, HBA1C, LACPYR, AAQTPL, GADCAB, CARNPL, PLTHY ####[facility] [place], [place] [phone]#### CASRFX , LG1RFX, PARNEO #### [facility] [place], [place] [phone] nm gastric emptying solid on 2017-07-19 [place] GASTRIC Performed at [facility] APPROVED BY: [facility] Rodolfo Azar MD ([id number]) EXAMINATION: NM GASTRIC EMPTYING STUDY EXAM DATE: [...] 07-19-2017 - Ambulatory Nausea with HARVEY FAJARDO [facility] 07-20-2017 vomiting, [facility] unspecified ([id number]) 07-08-2017 Ambulatory [place] Facility:[facility] 03-29-2020 - Patient encounter External [facility] 03-29-2020 procedure Provider 08-31-2018 Patient encounter [facility] - Facility:[facility] procedure [facility] 07-23-2018 - Patient encounter AYANA LOPEZ) [facility] 07-23-2018 procedure [facility] (0000 0) 05-23-2018 - Patient encounter [facility] 05-26-2018 procedure [facility] (0000 0) 12-31-2017 - Patient encounter MUKUL Luis JARETT Villatoroa [facility] 12-31-2017 procedure [facility] (0000 0) 12-31-2017 - Patient encounter MUKUL Luis STEVEN Juwanvela [facility] 12-31-2017 procedure [facility] (0000 0) 12-31-2017 - Patient encounter MUKUL Villatoroa [facility] 01-01-2018 procedure [facility] (0000 0) 12-18-2017 - Patient encounter MUKUL Luis Echeverrianemoa [facility] 12-18-2017 procedure YOU JOHNSON [facility] (0000 0) DARYL 10-22-2017 - Patient encounter MUKUL Echeverrianemoa [facility] 10-22-2017 procedure MUKUL Luis STEVEN [facility] (0 0000) 10-11-2017 - Patient encounter MUKUL Villatoroa [facility] 10-11-2017 procedure [facility] (0000 0) 07-31-2017 - Patient encounter [facility] MANCILLAPrice [facility] 08-08-2017 procedure HARVEYRADHA FAJARDO [facility] (0000 0) BUCKY GUILLORY MUKUL Banuelos JARETT 03-29-2020 Results Only External External-NonCCF Provider Procedures Procedure Name Date Provider Location EXTERNAL IMAGING 03-29-2020 External Provider [facility] (39291) Mammography 12-31-2017 [facility] (77108) Plan of Treatment Plan Description Date Location INFLUENZA (#1) INFLUENZA (#1) 2020 [facility] (24351) ADVANCE DIRECTIVE ADVANCE DIRECTIVE 2019 [facility] inic DISCUSSION DISCUSSION (38854) BONE DENSITY BONE DENSITY 2019 [facility] (65968) PNEUMOVAX AGE 65 AND OVER PNEUMOVAX AGE 65 AND OVER 2019 [facility] WITH 5YR LOOKBACK (#1) WITH 5YR LOOKBACK (#1) (4 0576) MAMMOGRAM MAMMOGRAM 12-31-2018 [facility] (64153) COLORECTAL CANCER COLORECTAL CANCER 06-19-2018 [facility] inic SCREENING,SEE MODIFIER SCREENING,SEE MODIFIER (3 1491) HBA1C HBA1C 10-29-2017 [facility] (02002) LDL CHOLESTEROL LDL CHOLESTEROL 11-12-2015 [facility] (38904) SHINGRIX VACCINE (1 of 2) SHINGRIX VACCINE (1 of 2) 2004 [facility] (61375) DTAP,TDAP,TD (1 - Tdap) DTAP,TDAP,TD (1 - Tdap) 1973 [facility] (10215) ANNUAL PCP TEAM CHRONIC ANNUAL PCP TEAM CHRONIC 1972 [facility] DISEASE VISIT DISEASE VISIT (91708) HEPATITIS C SCREENING HEPATITIS C SCREENING 1972 [facility] (09544) HIV SCREENING HIV SCREENING 1972 [facility] (47779) DIABETIC FOOT EXAM DIABETIC FOOT EXAM 1964 [facility] (90711) URINE ALBUMIN:CREATININE URINE ALBUMIN:CREATININE 1964 [facility] RATIO RATIO (17492) DILATED RETINAL EXAM DILATED RETINAL EXAM 1964 [facility] (83741) Payers Payer Name Policy Number Location [employer]UE [employer] BLUE [employer] [id number] [facility] ([id number]) DARIAN LAMAR [facility] [id number] [facility] (22842) The following information is from the original human readable contentNo Payer Records FoundNo Payer Records FoundNo Payer Records FoundNo Payer Records FoundNo Payer Records FoundNo Payer Records FoundNo Payer Records Found Social History Type Social History Description Date Locat ion Tobacco smoking status Never smoker 07-23-2018 [facility] (50371) NHIS Tobacco use and exposure Never used 07-23-2018 [facility] (58291) Alcohol intake Current non-drinker of 07-23-2018 [facility] (39193) alcohol (finding) Sex Assigned At Not on file [facility] (11620) The following information is from the original [...] BE BASED ON THE PRIMARY CLINICAL RECORDS. [facility] provides no warranty or guarantee of the accuracy or completeness of information in this document. UNRECOGNIZED CONTENT PROVIDED BELOW FOR UNRECOGNIZED SECTION INFORMATION SOURCE DATE CREATED AUTHOR AUTHOR'S ORGANIZATIO N 02/11/2018 [facility] DATE CREATED AUTHOR AUTHOR'S ORGANIZATIO N 02/11/2018 [facility] DATE CREATED AUTHOR AUTHOR'S ORGANIZATIO N 07/29/2018 [facility] DATE CREATED AUTHOR AUTHOR'S ORGANIZATIO N 09/03/2018 [facility] DATE CREATED AUTHOR AUTHOR'S ORGANAAMIRATIO N 05/20/2020 [facility] Found ation ([place]) UNRECOGNIZED CONTENT PROVIDED BELOW FOR UNRECOGNIZED SECTION Source Comments In the event this information is protected by the Federal Confidentiality of Alcohol and Drug Abuse Patient Records regulations: The Federal rules restrict any use of the information to criminally investigate or prosecute any alcohol or drug abuse patient.[facility]
--- OUTSIDE RECORDS SUMMARY | 2020-06-05 08:29 | XMS RPT_ITS | CCD ---
:1955 External Reference #:[id number] Author Organization [facility] Care Team Providers Name Role Phone NELSON [...] S Unavailable Unavailable SHAHEEN (RN) Unavailable Unavailable [facility] Clinical [facility] Attending Unavailable Rui Parks Primary Care Provider Allergies Reported Allergen Reaction(s) Severity Date of Location Onset ciprofloxacin Rash Unknown, 06-10-2013 - [facility] Translations: [ Moderate Other [place] CIPROFLOXACIN, Repository CIPROFLOXACIN, CIPROFLOXACIN] cyclobenzaprine Rash Unknown, 06-10-2013 - [facility] Translations: [ Moderate Other [place] CYCLOBENZAPRINE, Repository CYCLOBENZAPRINE, CYCLOBENZAPRINE] ketorolac Translations: Other: See Unknown, High 03-22-2006 - [facility] [ KETOROLAC, KETOROLAC, Comments Ot r [place] KETOROLAC] Repository metFORMIN Translations: Other: See 06-28-2017 - [facility] [ METFORMIN, METFORMIN, Comments Ot r [place] METFORMIN] Repository Sulfamethoxazole / Hives Unknown, High 07-31-2017 - [facility] Trimethoprim Main [place] Translations: [ Repository SULFAMETHOXAZOLE-TRIMET HOPRIM] OTHER Translations: [ 05-27-2007 - [facility] OTHER, OTHER, OTHER] Other [facility] Repository Medications Medication Name Sig Date Prescriber Location Allopurinol allopurinol (ZYLOPRIM) [facility] Provider [facility] 100 mg tablet Take 100 Provider (4419 5) mg by mouth once daily. 0 Active Comment: Take 100 mg by mouth once da jeffy. Aspirin aspirin, enteric coated [facility] Provider [facility] (14438) (ASPIRIN, ENTERIC COATED) Provider 81 mg EC tablet Take 81 mg by mouth once daily. 0 Active Comment: Take 81 mg by mouth once [place]. Haloperidol haloperidol (HALDOL) 0.5 [facility] Provider [facility] mg tablet Take 0.5 mg by Provider (40 195) mouth twice daily. 0 Active Comment: Take 0.5 mg by mouth twice d aily. HYDROCODONE HYDROCODONE [facility] Provider [facility] BIT/ACETAMINOPHEN BIT/ACETAMINOPHEN Provider (7529 5) (VICODIN ORAL) (VICODIN ORAL) Take by mouth. 0 Active Comment: Take by mouth. insulin degludec INSULIN DEGLUDEC (TRESIBA Ccf Provide r [facility] FLEXTOUCH U-100 Provider (51952) SUBCUTANEOUS) Inject 120 mg subcutaneously once daily. 0 Active Comment: Inject 120 mg subcutaneously once daily. lamoTRIgine lamoTRIgine (LAMICTAL) 100 [facility] Provider [facility] mg tablet Take 100 mg by Provider (74 860) mouth twice daily. 0 Active Comment: Take 100 mg by mouth twice d aily. levothyroxine Levothyroxine 50 mcg cap [facility] Provider [facility] Take by mouth once daily. Provider (1 4150) 0 Active Comment: Take by mouth once daily. Methadone methadone (DOLOPHINE) 5 mg [facility] Provider [facility] (60957) tablet Take 10 mg by mouth Provider once daily. At bedtime 0 Active Comment: Take 10 mg by mouth once [place]. At bedtime montelukast montelukast (SINGULAIR) 10 [facility] Provider [facility] mg tablet Take 10 mg by Provider (639 95) mouth daily at bedtime. 0 Active Comment: Take 10 mg by mouth daily at bedtime. Morphine morphine IR 15 mg tablet [facility] Provider [facility] (74331) Take 15 mg by mouth every Provider 4 hours as needed. 0 Active Comment: Take 15 mg by mouth every 4 hours as needed. naloxegol naloxegol (MOVANTIK) 25 mg [facility] Provider [facility] (52377) tablet Take 25 mg by mouth Provider once daily. 0 Active Comment: Take 25 mg by mouth once [place]. Omeprazole Omeprazole 40 mg capsule [facility] Provider [facility] (88638) Take 40 mg by mouth once Provider daily. 0 Active Comment: Take 40 mg by mouth once [place]. Ondansetron ondansetron orally 03-03-[address] [facility] disintegrating (ZOFRAN [facility] (4 5687) ODT) 8 mg disintegrating tablet Take 1 tablet by mouth every 8 hours as needed. 90 tablet 6 03/03/2018 Active Comment: Take 1 tablet by mouth every 8 hours as needed. pregabalin pregabalin (LYRICA) 75 mg [facility] Provider [facility] (90470) capsule Take 150 mg by Provider mouth twice daily. 0 Active Comment: Take 150 mg by mouth twice d aily. Promethazine promethazine (PHENERGAN) 12-18-2017 [facility] 25 mg tablet Take 1 (21517) tablet by mouth every 8 hours as needed (for nausea). 90 tablet 6 12/18/2017 Active promethazine (PHENERGAN) 25 mg tablet Take 25 [facility] (21206) mg by mouth three times daily. 0 Active Comment: Take 25 mg by mouth three ti mes daily. Take 1 tablet by mouth every 8 hours as needed (for nausea). rOPINIRole rOPINIRole 1 mg tablet [facility] Provider [facility] (10977) Take 1 mg by mouth once Provider daily. 0 Active Comment: Take 1 mg by mouth once alicia y. Sertraline sertraline (ZOLOFT) 100 [facility] Provider [facility] (88583) mg tablet Take 100 mg by Provider mouth once daily. 0 Active Comment: Take 100 mg by mouth once da jeffy. Simvastatin simvastatin 40 mg tablet [facility] Provider [facility] Take 40 mg by mouth daily Provider (4 1463) at bedtime. 0 Active Comment: Take 40 mg by mouth daily at bedtime. valsartan valsartan (DIOVAN) 80 mg [facility] Provider [facility] (53296) tablet Take 80 mg by Provider mouth once daily. 0 Active Comment: Take 80 mg by mouth once [place]. Problems Active Problems Category Problem Name Status Date Location Unclassified Active 08-31-2018 - [facility] [place] ([address]) Unclassified Unknown / UNK(Unknown) Active 07-19-2017 - [facility] (08328) Past or Other Problems Category Problem Name Status Date Location Nausea and vomiting Nausea with vomiting, Completed 02-17-2015 - [facility] (89773) Other disorders of Gastroparesis [facility] stomach and duodenum [facility] (12664) Other gastrointestinal Diarrhea Completed 05-27-2007 - [facility] disorders (43260) Other nervous system Other disorders of Completed 12-31-2017 - [facility] disorders nervous system [place] (00 000) Tuberculosis Nodular tuberculosis Completed [facility]-08-2007 [facility] ([address] Results Result Name Value Range Unit Interpretation Flag Date Location cmp on 2020-05-19 Albumin [Mass/Vol] 3.3 3.4-4.8 G/dL Low 05-19-2020 [facility] ([place]) ([address]) Comment: Performed By: #### GFR, BMP, PBNP, TROP #### [address] [address] #### ANEU, ADIFF, CBC #### [address] [address] Albumin/Globulin [Mass ratio] 0.8 1.1-2.5 ratio Low 05-19-2020 [facility] ([place] ([address]) Comment: Performed By: #### GFR, BMP, PBNP, TROP #### [address] [address] #### ANEU, ADIFF, CBC #### [address] [address] ALP [Catalytic activity/Vol] 194 40-135 U/L High 1 [facility] ([place] (0000 0) Comment: Performed By: #### GFR, BMP, PBNP, TROP #### [address] [address] #### ANEU, ADIFF, CBC #### [address] [address] ALT [Catalytic activity/Vol] 27 14-59 U/L Normal 1 [facility] ([place] (0000 0) Comment: Performed By: #### GFR, BMP, PBNP, TROP #### [place] [address] #### ANEU, ADIFF, CBC #### [address] [address] AST [Catalytic activity/Vol] 18 10-40 U/L Normal 1 [facility] ([place] (0000 0) Comment: Performed By: #### GFR, BMP, PBNP, TROP #### [place] [address] #### ANEU, ADIFF, CBC #### [address] [address] Bili Total 0.7 0.2-1.0 mg/dL Normal 05-19-2020 [facility] ([place]) (77667) Comment: Result Comment: Use of this assay is not recommended for patients undergoing treatment with eltrombopag d ue to the potential for falsely elevated results. Performed By: #### GFR, BMP, PBNP, TROP #### [place] [address] #### ANEU, ADIFF, CBC #### [address] [address] Calcium [Mass/Vol] 9.5 8.4-10.2 mg/dL Normal 05-19-2020 [facility] ([place] (0000 0) Comment: Performed By: #### GFR, BMP, PBNP, TROP #### [place] [address] #### ANEU, ADIFF, CBC #### [address] [address] Chloride [Moles/Vol] 99 98-107 mmol/L Normal 0 [facility] ([place] (0000 0) Comment: Performed By: #### GFR, BMP, PBNP, TROP #### [address] [address] #### ANEU, ADIFF, CBC #### [address] [address] CO2 [Moles/Vol] 27 23-31 mmol/L Normal 05-19-2020 [facility] [place] ([address]707) Comment: Performed By: #### GFR, BMP, PBNP, TROP #### [place] [address] #### ANEU, ADIFF, CBC #### [address] [address] Creatinine [Mass/Vol] 1.21 0.55-1.02 mg/dL High 05-19-20 [facility] ([place] (0000 0) Comment: Performed By: #### GFR, BMP, PBNP, TROP #### [place] [address] #### ANEU, ADIFF, CBC #### [address] [address] Electrolyte Balance 9.0 mEq/L Normal 05-19-2020 [facility] ([place]) (36850) Comment: Performed By: #### GFR, BMP, PBNP, TROP #### [place] [address] #### ANEU, ADIFF, CBC #### [address] [address] Globulin (S) [Mass/Vol] 3.9 G/dL Normal 2019 [facility] ([place] (33987) Comment: Performed By: #### GFR, BMP, PBNP, TROP #### [place] [address] #### ANEU, ADIFF, CBC #### [address] [address] Glucose [Mass/Vol] 311 80-115 mg/dL High 05-19-2020 [facility] ([place] (94255) Comment: Performed By: #### GFR, BMP, PBNP, TROP #### [place] [address] #### ANEU, ADIFF, CBC #### [address] [address] Potassium [Moles/Vol] 4.8 3.5-5.1 mmol/L Normal 05-19-20 [facility] ([place] (0000 0) Comment: Performed By: #### GFR, BMP, PBNP, TROP #### [place] [address] #### ANEU, ADIFF, CBC #### [address] [address] Protein [Mass/Vol] 7.2 6.4-8.2 G/dL Normal 05-19-2020 [facility] ([place] (55997) Comment: Performed By: #### GFR, BMP, PBNP, TROP #### [place] [address] #### ANEU, ADIFF, CBC #### [address] [address] Sodium [Moles/Vol] 135 136-145 mmol/L Low 05-19-2020 [facility] ([place] (17107) Comment: Performed By: #### GFR, BMP, PBNP, TROP #### [place] [address] #### ANEU, ADIFF, CBC #### [address] [address] Urea nitrogen [Mass/Vol] 18 7-18 mg/dL Normal 05-19 [facility] ([place] (0000 0) Comment: Performed By: #### GFR, BMP, PBNP, TROP #### [place] [address] #### ANEU, ADIFF, CBC #### [address] [address] Urea nitrogen/Creatinine [Mass 15 7-27 ratio Normal 05-19-2020 [facility]] [facility] ([place]) ([address]) Comment: Performed By: #### GFR, BMP, PBNP, TROP #### [address] [address] #### ANEU, ADIFF, CBC #### [address] [address] a1c on 2020-05-19 HbA1c (Bld) [Mass fraction] 9.2 4.3-6.4 % High [facility] ([place]) (0000 0) Comment: Performed By: #### GFR, BMP, PBNP, TROP #### [place] [address] #### ANEU, ADIFF, CBC #### [address] [address] .gfr on 2020-05-19 GFR 54 ml/min/1.73sqm Normal [facility] ([place]) (0000 0) Comment: Result Comment: GFR Population mean for Afri can Chadian, Non- Americans Ages 20-29 = 116 mL/min/1.73 [...] By: #### GFR, BMP, PBNP, TROP #### [address] [address] #### ANEU, ADIFF, CBC #### [address] [address] GFR Non- 45 ml/min/1.73sqm Normal 05-19-2020 [facility] ([place] (78935) Comment: Result Comment: GFR Population mean for Afri can Ch[place], Non- Americans Ages 20-29 = 116 mL/min/1.73 [...] By: #### GFR, BMP, PBNP, TROP #### [place] [address] #### ANEU, ADIFF, CBC #### [address] [address] bmp on 2020-03-21 Calcium [Mass/Vol] 9.6 8.4-10.2 mg/dL Normal 03-21-2020 [facility] ([place] (0000 0) Comment: Performed By: #### GFR, BMP, PBNP, TROP #### [place] [address] #### ANEU, ADIFF, CBC #### [address] [address] Chloride [Moles/Vol] 96 98-107 mmol/L Low 0 [facility] ([place] (30097) Comment: Performed By: #### GFR, BMP, PBNP, TROP #### [place] [address] #### ANEU, ADIFF, CBC #### [address] [address] CO2 [Moles/Vol] 27 23-31 mmol/L Normal 03-21-2020 [facility] [place] (50760) Comment: Performed By: #### GFR, BMP, PBNP, TROP #### [place] [address] #### ANEU, ADIFF, CBC #### [address] [address] Creatinine [Mass/Vol] 1.42 0.55-1.02 mg/dL High 03-21-20 20 [facility] ([place] (0000 0) Comment: Performed By: #### GFR, BMP, PBNP, TROP #### [place] [address] #### ANEU, ADIFF, CBC #### [address] [address] Electrolyte Balance 11.0 mEq/L Normal 03-21-2020 [facility] ([place] (38162) Comment: Performed By: #### GFR, BMP, PBNP, TROP #### [place] [address] #### ANEU, ADIFF, CBC #### [address] [address] Glucose [Mass/Vol] 397 80-115 mg/dL High 03-21-2020 [facility] ([place]) (40790) Comment: Performed By: #### GFR, BMP, PBNP, TROP #### [place] [address] #### ANEU, ADIFF, CBC #### [address] [address] Potassium [Moles/Vol] 4.8 3.5-5.1 mmol/L Normal 03-21-20 20 [facility] ([place] (0000 0) Comment: Performed By: #### GFR, BMP, PBNP, TROP #### [place] [address] #### ANEU, ADIFF, CBC #### [address] [address] Sodium [Moles/Vol] 134 136-145 mmol/L Low 03-21-2020 [facility] ([place] (65459) Comment: Performed By: #### GFR, BMP, PBNP, TROP #### [place] [address] #### ANEU, ADIFF, CBC #### [address] [address] Urea nitrogen [Mass/Vol] 18 7-18 mg/dL Normal 03-21 [facility] ([place] (0000 0) Comment: Performed By: #### GFR, BMP, PBNP, TROP #### [address] [address] #### ANEU, ADIFF, CBC #### [address] [address] Urea nitrogen/Creatinine [Mass 13 7-27 ratio Normal 03-21-2020 [facility] ([place] ([address]) Comment: Performed By: #### GFR, BMP, PBNP, TROP #### [address] [address] #### ANEU, ADIFF, CBC #### [address] [address] .gfr on 2020-03-21 GFR 45 ml/min/1.73sqm Normal 08 [facility] ([place] (0000 0) Comment: Result Comment: GFR Population mean for Afri can [place]adian, Non- Americans Ages 20-29 = 116 mL/min/1.73 [...] By: #### GFR, BMP, PBNP, TROP #### [address] [address] #### ANEU, ADIFF, CBC #### [address] [address] GFR Non- 37 ml/min/1.73sqm Normal 03-21-2020 [facility] ([place] (17678) Comment: Result Comment: GFR Population mean for Afri can Chadian, Non- Americans Ages 20-29 = 116 mL/min/1.73 [...] By: #### GFR, BMP, PBNP, TROP #### [facility] [address] [place] [address] #### ANEU, ADIFF, CBC #### [place] [address] [place], [place] [address] nm bone imaging whole body on 2020-03-01 NM BONE IMAGING ORIGINAL Normal 03-01-2020 [facility] WHOLE BODY EXAM: NM BONE IMAGING WHOLE BODY 02/29/2020 1:37 PM [facility] ([place]) ([address]) HISTORY: LEFT posterior late ral ribs/chest wall [...] the resident's findings and interpretation. Interpreted By: yTrese Lynn DO Preliminary Report By: Belkis Henriquez DO Electronically Signed By: Tyrese Lynn DO Dictated Date: 02/29/2020 1:55:08 PM Prelim Date: 02/29/2020 2:00:50 PM Sign Date: 03/01/2020 1:36:16 PM Ordering Provider:You lund on 2020-02-26 AISLINN . Normal 02-26-2020 [facility] MICRO - Microbiology [facility] ([place]) ([address]) PROCEDURE: Urine Culture [*1] SOURCE: Urine, Clean Catch BODY SITE: COLLECTED DATE/TIME: 02/24/2020 22:39 EDT RECEIVED DATE/TIME: 02/25/2020 15:49 EDT START DATE/TIME: 02/25/2020 15:49 EDT FREE TEXT SOURCE: FINAL REPORTS Final Report [] Verified Date/Time/Personnel: 02/26/2020 14:46 EDT 10,000 - 50,000 cfu/ml Multiple bacterial morphotypes present. Probable Contamination. Suggest recollection if clinically indicated. Performing Locations *1: This test was performed at: [address], [address]- , [place] Comment: Performed By: #### GFR, BMP, PBNP, TROP #### [address] [address] #### ANEU, ADIFF, CBC #### [address] [address] ua on 2020-02-25 Color (U) Yellow Normal 02-25-2020 [facility] ([facility] ([address]) Comment: Performed By: #### GFR, BMP, PBNP, TROP #### [address] [address] #### ANEU, ADIFF, CBC #### [address] [address] Glucose (U) [Mass/Vol] 500 Negative mg/dL Abnormal 020 [facility] ([place]) (24992) Comment: Performed By: #### GFR, BMP, PBNP, TROP #### [address] [address] #### ANEU, ADIFF, CBC #### [address] [address] Ketones Ql (U) Negative Negative Normal 02-25-2020 [facility] ([place]) ([address]67) Comment: Performed By: #### GFR, BMP, PBNP, TROP #### [address] [address] #### ANEU, ADIFF, CBC #### [address] [address] UA Appear Clear Clear Normal 02-25-2020 [facility] ([place] ([address]) Comment: Performed By: #### GFR, BMP, PBNP, TROP #### [place] [address] #### ANEU, ADIFF, CBC #### [address] [address] UA Blood Trace Negative Abnormal 02-25-2020 [facility] ([place] ([address]) Comment: Performed By: #### GFR, BMP, PBNP, TROP #### [place] [address] #### ANEU, ADIFF, CBC #### [address] [address] UA Leuk Est Negative Negative Normal 02-25-2020 [facility] ([place] (03992) Comment: Performed By: #### GFR, BMP, PBNP, TROP #### [place] [address] #### ANEU, ADIFF, CBC #### [address] [address] UA Nitrite Negative Negative Normal 02-25-2020 [facility] ([place] (24100) Comment: Performed By: #### GFR, BMP, PBNP, TROP #### [place] [address] #### ANEU, ADIFF, CBC #### [address] [address] UA pH 7.0 5.0 - 8.0 Normal 02-25-2020 [facility] ([place] ([address]67[address]) Comment: Performed By: #### GFR, BMP, PBNP, TROP #### [place] [address] #### ANEU, ADIFF, CBC #### [address] [address] UA Protein Trace Negative Normal 02-25-2020 [facility] ([place] ([address]169) Comment: Performed By: #### GFR, BMP, PBNP, TROP #### [place] [address] #### ANEU, ADIFF, CBC #### [address] [address] UA Spec Grav 1.020 1.015-1.025 Normal 02-25-2020 [facility] ([place] ([address]2741) Comment: Performed By: #### GFR, BMP, PBNP, TROP #### [place] [address] #### ANEU, ADIFF, CBC #### [address] [address] UA Specimen Type Clean Catch Normal 02-25-2020 [facility] ([place]) (62565) Comment: Performed By: #### GFR, BMP, PBNP, TROP #### [place] [address] #### ANEU, ADIFF, CBC #### [address] [address] UA Urobilinogen 0.2 0.2-1.0 E.U./dL Normal 02-25-2020 [facility] [place] ([address]11) Comment: Performed By: #### GFR, BMP, PBNP, TROP #### [place] [address] #### ANEU, ADIFF, CBC #### [address] [address] Urobilinogen Qn (U) Negative Negative Normal 02-25-2020 [facility] ([place]) (0000 0) Comment: Performed By: #### GFR, BMP, PBNP, TROP #### [address] [address] #### ANEU, ADIFF, CBC #### [address] [address] trop on 2020-02-25 Troponin I.cardiac <0.020 0.000-0.040 ng/mL Normal 0 [facility] [Mass/Vol] [facility] ([place]) ([address]) Comment: Result Comment: Troponin I r eference range: 0.00-0.040 ng/mL Negative an d non-diagnostic. >0.040 ng/mL Consistent with cardiac damage, increased clinical risk and possibility of myocardial in farction. Serial measurements, a rise & fall in test results, clinical histo ry, appropriate symptoms and/or ECG changes may help assess possibility of HI. *Other non-acute coronary sy ndrome conditions such as CHF, myoc arditis, pulmonary emboli, sepsis and cardiac surgery could result in myoc ardial damage and increased troponi n levels. Performed By: #### GFR, BMP, PBNP, TROP #### [place] [address] #### ANEU, ADIFF, CBC #### [address] [address] phv on 2020-02-25 pH Venous 7.39 7.31-7.41 Normal 02-25-2020 [facility] ([place] ([address]1800) Comment: Performed By: #### GFR, BMP, PBNP, TROP #### [place] [address] #### ANEU, ADIFF, CBC #### [address] [address] lip on 2020-02-25 Lipase Level 76 73-393 U/L Normal 02-25-2020 [facility] ([place]) ([address]) Comment: Performed By: #### GFR, BMP, PBNP, TROP #### [place] [address] #### ANEU, ADIFF, CBC #### [address] [address] cmp on 2020-02-25 Albumin [Mass/Vol] 3.6 3.4-4.8 G/dL Normal 02-25-2020 [facility] ([place]) (81923) Comment: Performed By: #### GFR, BMP, PBNP, TROP #### [place] [address] #### ANEU, ADIFF, CBC #### [address] [address] Albumin/Globulin [Mass ratio] 1.0 1.1-2.5 ratio Low 02-25-2020 [facility] ([place]) (10839) Comment: Performed By: #### GFR, BMP, PBNP, TROP #### [place] [address] #### ANEU, ADIFF, CBC #### [address] [address] ALP [Catalytic activity/Vol] 192 40-135 U/L High 0 02-25-2020 [facility] ([place]) (0000 0) Comment: Performed By: #### GFR, BMP, PBNP, TROP #### [place] [address] #### ANEU, ADIFF, CBC #### [address] [address] ALT [Catalytic activity/Vol] 21 10-35 U/L Normal 0 02-25-2020 [facility] ([place]) (0000 0) Comment: Performed By: #### GFR, BMP, PBNP, TROP #### [place] [address] #### ANEU, ADIFF, CBC #### [address] [address] AST [Catalytic activity/Vol] 14 10-40 U/L Normal 0 02-25-2020 [facility] ([place]) (0000 0) Comment: Performed By: #### GFR, BMP, PBNP, TROP #### [place] [address] #### ANEU, ADIFF, CBC #### [address] [address] Bili Total 1.0 0.2-1.0 mg/dL Normal 02-25-2020 [facility] ([place]) ([address]28) Comment: Result Comment: Use of this assay is not recommended for patients undergoing treatment with eltrombopag d ue to the potential for falsely elevated results. Performed By: #### GFR, BMP, PBNP, TROP #### [place] [address] #### ANEU, ADIFF, CBC #### [address] [address] Calcium [Mass/Vol] 9.6 8.4-10.2 mg/dL Normal 02-25-2020 [facility] ([place] (0000 0) Comment: Performed By: #### GFR, BMP, PBNP, TROP #### [place] [address] #### ANEU, ADIFF, CBC #### [address] [address] Chloride [Moles/Vol] 97 98-107 mmol/L Low 0 [facility] ([place] (63356) Comment: Performed By: #### GFR, BMP, PBNP, TROP #### [place] [address] #### ANEU, ADIFF, CBC #### [address] [address] CO2 [Moles/Vol] 34 23-31 mmol/L High 02-25-2020 [facility] [place] ([address]) Comment: Performed By: #### GFR, BMP, PBNP, TROP #### [place] [address] #### ANEU, ADIFF, CBC #### [address] [address] Creatinine [Mass/Vol] 1.31 0.55-1.02 mg/dL High 02-25-20 20 [facility] ([place]) (0000 0) Comment: Performed By: #### GFR, BMP, PBNP, TROP #### [place] [address] #### ANEU, ADIFF, CBC #### [address] [address] Electrolyte Balance 4.0 mEq/L Normal 02-25-2020 [facility] ([place]) ([address]3515) Comment: Performed By: #### GFR, BMP, PBNP, TROP #### [place] [address] #### ANEU, ADIFF, CBC #### [address] [address] Globulin (S) [Mass/Vol] 3.6 G/dL Normal 2019 [facility] ([place]) ([address]194) Comment: Performed By: #### GFR, BMP, PBNP, TROP #### [place] [address] #### ANEU, ADIFF, CBC #### [address] [address] Glucose [Mass/Vol] 428 80-115 mg/dL Critically abnormal 0 02-25-2020 [facility] ([place]) (84105) Comment: Performed By: #### GFR, BMP, PBNP, TROP #### [place] [address] #### ANEU, ADIFF, CBC #### [address] [address] Potassium [Moles/Vol] 4.8 3.5-5.1 mmol/L Normal 02-25-20 [facility] ([place]) (0000 0) Comment: Performed By: #### GFR, BMP, PBNP, TROP #### [place] [address] #### ANEU, ADIFF, CBC #### [address] [address] Protein [Mass/Vol] 7.2 6.4-8.2 G/dL Normal 02-25-2020 [facility] ([place]) ([address]37) Comment: Performed By: #### GFR, BMP, PBNP, TROP #### [place] [address] #### ANEU, ADIFF, CBC #### [address] [address] Sodium [Moles/Vol] 135 136-145 mmol/L Low 02-25-2020 [facility] ([place]) (59795) Comment: Performed By: #### GFR, BMP, PBNP, TROP #### [place] [address] #### ANEU, ADIFF, CBC #### [address] [address] Urea nitrogen [Mass/Vol] 17 7-18 mg/dL Normal 02-24 [facility] ([place]) (0000 0) Comment: Performed By: #### GFR, BMP, PBNP, TROP #### [place] [address] #### ANEU, ADIFF, CBC #### [address] [address] Urea nitrogen/Creatinine [Mass 13 7-27 ratio Normal 02-25-2020 [facility] ratio] [facility] ([place]) ([address]) Comment: Performed By: #### GFR, BMP, PBNP, TROP #### [place] [address] #### ANEU, ADIFF, CBC #### [address] [address] cbc on 2020-02-25 Erythrocyte distribution 14.8 11.5-14.5 % High 02-24 [facility] width (RBC) [Ratio] ([place]) (78578) Comment: Performed By: #### GFR, BMP, PBNP, TROP #### [place] [address] #### ANEU, ADIFF, CBC #### [address] [address] Hematocrit (Bld) [Volume 40.2 37.0-47.0 % Normal 02-24 [facility] fraction] ([place]) (0000 0) Comment: Performed By: #### GFR, BMP, PBNP, TROP #### [place] [address] #### ANEU, ADIFF, CBC #### [address] [address] Hemoglobin (Bld) 13.2 12.0-16.0 G/dL Normal 02-25-2020 [facility] [Mass/Vol] [facility] [facility] ([place]) (21710) Comment: Performed By: #### GFR, BMP, PBNP, TROP #### [place] [address] #### ANEU, ADIFF, CBC #### [address] [address] MCH (RBC) [Entitic mass] 27.7 27.0-31.2 pg Normal 02-24 [facility] ([place]) (0000 0) Comment: Performed By: #### GFR, BMP, PBNP, TROP #### [place] [address] #### ANEU, ADIFF, CBC #### [address] [address] MCHC (RBC) [Mass/Vol] 32.8 33.0-37.0 G/dL Low 02-25-20 [facility] ([place]) (0000 0) Comment: Performed By: #### GFR, BMP, PBNP, TROP #### [place] [address] #### ANEU, ADIFF, CBC #### [address] [address] MCV (RBC) [Entitic vol] 84.5 80.0-94.0 fL Normal 2019 [facility] ([place]) (0000 0) Comment: Performed By: #### GFR, BMP, PBNP, TROP #### [place] [address] #### ANEU, ADIFF, CBC #### [address] [address] Platelet mean volume 8.1 7.4-10.4 fL Normal 0 [facility] (Bld) [Entitic vol] ([place]) (53426) Comment: Performed By: #### GFR, BMP, PBNP, TROP #### [place] [address] #### ANEU, ADIFF, CBC #### [address] [address] Platelets (Bld) [#/Vol] 265 130-400 10 3/mcL Normal 2019 [facility] ([place]) (33184) Comment: Performed By: #### GFR, BMP, PBNP, TROP #### [place] [address] #### ANEU, ADIFF, CBC #### [address] [address] RBC (Bld) [#/Vol] 4.76 4.20-5.40 10 6/mcL Normal 02-25-2020 [facility] ([place]) (0000 0) Comment: Performed By: #### GFR, BMP, PBNP, TROP #### [place] [address] #### ANEU, ADIFF, CBC #### [address] [address] WBC (Bld) [#/Vol] 11.20 4.60-10.80 10 3/mcL High 02-25-2020 [facility] ([place]) (0000 0) Comment: Performed By: #### GFR, BMP, PBNP, TROP #### [place] [address] #### ANEU, ADIFF, CBC #### [address] [address] isis on 2020-02-25 Acetone (s) Negative Negative Normal 02-25-2020 [facility] ([place]) (23469) Comment: Performed By: #### GFR, BMP, PBNP, TROP #### [place] [address] #### ANEU, ADIFF, CBC #### [address] [address] .neuabs on Neutrophils (Bld) 8.50 2.85-6.16 10 3/mcL High 02-25-2020 [facility] [#/Vol] [facility] ([place]) (18421) Comment: Performed By: #### GFR, BMP, PBNP, TROP #### [address] [address] #### ANEU, ADIFF, CBC #### [address] [address] .gfr on 2020-02-25 GFR 49 ml/min/1.73sqm Normal [facility] ([place]) (0000 0) Comment: Result Comment: GFR Population mean for Afri can Ch[place], Non- Americans Ages 20-29 = 116 mL/min/1.73 [...] By: #### GFR, BMP, PBNP, TROP #### [address] [address] #### ANEU, ADIFF, CBC #### [address] [address] GFR Non- 41 ml/min/1.73sqm Normal 02-25-2020 [facility] ([place]) (45968) Comment: Result Comment: GFR Population mean for Afri can [place], Non- Americans Ages 20-29 = 116 mL/min/1.73 [...] By: #### GFR, BMP, PBNP, TROP #### [place] [address] #### ANEU, ADIFF, CBC #### [address] [address] .auto diff on 02-24 Ammonia (P) [Mass/Vol] 0.80 0.15-1.00 10 3/mcL Normal 020 [facility] ([place]) (75246) Comment: Performed By: #### GFR, BMP, PBNP, TROP #### [place] [address] #### ANEU, ADIFF, CBC #### [address] [address] Basophils (Bld) 0.10 0.00-0.19 10 3/mcL Normal 02-25-2020 [facility] [#/Vol] [facility] ([place]) (18164) Comment: Performed By: #### GFR, BMP, PBNP, TROP #### [place] [address] #### ANEU, ADIFF, CBC #### [address] [address] Basophils/100 WBC (Bld) 0.6 0.0-2.5 % Normal 2019 [facility] ([place]) (0000 0) Comment: Performed By: #### GFR, BMP, PBNP, TROP #### [place] [address] #### ANEU, ADIFF, CBC #### [address] [address] Eosinophils (Bld) 0.30 0.00-0.40 10 3/mcL Normal 02-25-2020 [facility] [#/Vol] [facility] ([place]) (62049) Comment: Performed By: #### GFR, BMP, PBNP, TROP #### [place] [address] #### ANEU, ADIFF, CBC #### [address] [address] Eosinophils/100 WBC (Bld) 2.4 0.0-7.0 % Normal 070 [facility] ([place]) (0000 0) Comment: Performed By: #### GFR, BMP, PBNP, TROP #### [place] [address] #### ANEU, ADIFF, CBC #### [address] [address] Lymphocytes (Bld) 1.60 0.77-3.85 10 3/mcL Normal 02-25-2020 [facility] [#/Vol] [facility] ([place]) (91341) Comment: Performed By: #### GFR, BMP, PBNP, TROP #### [place] [address] #### ANEU, ADIFF, CBC #### [address] [address] Lymphocytes/100 WBC (Bld) 14.6 10.0-50.0 % Normal [facility] ([place]) (31491) Comment: Performed By: #### GFR, BMP, PBNP, TROP #### [place] [address] #### ANEU, ADIFF, CBC #### [address] [address] Monocytes/100 WBC (Bld) 6.8 1.7-13.0 % Normal 2019 [facility] ([place]) (0000 0) Comment: Performed By: #### GFR, BMP, PBNP, TROP #### [place] [address] #### ANEU, ADIFF, CBC #### [address] [address] Neutrophils/100 WBC (Bld) 75.6 37.0-80.0 % Normal [facility] ([place]) (35179) Comment: Performed By: #### GFR, BMP, PBNP, TROP #### [place] [address] #### ANEU, ADIFF, CBC #### [address] [address] vidh on 2020-02-24 Vit. D 25-Hydroxy 24 ng/mL Normal 02-24-2020 [facility] ([place]) (15416) Comment: Result Comment: Interpretive Values Based on Total 25(OH)D: Severe Deficiency <20 ng/mL Mild to Moderate Deficiency 20-30 ng/mL Optimum Levels 30-100 ng/mL Toxicity Possible >100 ng/mL Performed By: #### GFR, BMP, PBNP, TROP #### [place] [address] #### ANEU, ADIFF, CBC #### [address] [address] uric on 2020-02-24 Uric Acid Lvl 4.7 2.6-6.2 mg/dL Normal 02-24-2020 [facility] ([place]) (24381) Comment: Performed By: #### GFR, BMP, PBNP, TROP #### [place] [address] #### ANEU, ADIFF, CBC #### [address] [address] tsh on 2020-02-24 TSH Qn 2.13 0.36-3.74 mcIU/mL Normal 02-24-2020 [facility] ([place]) (09158) Comment: Performed By: #### GFR, BMP, PBNP, TROP #### [place] [address] #### ANEU, ADIFF, CBC #### [address] [address] lipid on 2020-02-24 Cholesterol [Mass/Vol] 134 0-200 mg/dL Normal 020 [facility] ([place]) (0000 0) Comment: Result Comment: Cholesterol Reference Interval: Less than 200 Desirable 200-239 Borderline high risk 240 and above High risk Performed By: #### GFR, BMP, PBNP, TROP #### [place] [address] #### ANEU, ADIFF, CBC #### [address] [address] Cholesterol in HDL 45 40-60 mg/dL Normal 02-24-2020 [facility] [Mass/Vol] ([place]) (000 00) Comment: Performed By: #### GFR, BMP, PBNP, TROP #### [place] [address] #### ANEU, ADIFF, CBC #### [address] [address] Cholesterol in LDL 55 0-130 mg/dL Normal 02-24-2020 [facility] [Mass/Vol] ([place]) (000 00) Comment: Performed By: #### GFR, BMP, PBNP, TROP #### [place] [address] #### ANEU, ADIFF, CBC #### [address] [address] Triglyceride [Mass/Vol] 171 0-150 mg/dL High 2019 [facility] ([place]) (0000 0) Comment: Result Comment: Triglyceride Reference Interval: Less than 150 Normal 150-199 Borderline high risk 200-499 High risk 500 or higher Very high risk Performed By: #### GFR, BMP, PBNP, TROP #### [place] [address] #### ANEU, ADIFF, CBC #### [address] [address] ft4 on 2020-02-24 Free T4 [Mass/Vol] 1.37 0.76-1.46 ng/dL Normal 02-24-2020 [facility] ([place]) (0000 0) Comment: Performed By: #### GFR, BMP, PBNP, TROP #### [place] [address] #### ANEU, ADIFF, CBC #### [address] [address] cmp on 2020-02-24 Albumin [Mass/Vol] 3.5 3.4-4.8 G/dL Normal 02-24-2020 [facility] ([place]) (92014) Comment: Performed By: #### GFR, BMP, PBNP, TROP #### [place] [address] #### ANEU, ADIFF, CBC #### [address] [address] Albumin/Globulin [Mass ratio] 1.0 1.1-2.5 ratio Low 02-24-2020 [facility] ([place]) (90429) Comment: Performed By: #### GFR, BMP, PBNP, TROP #### [place] [address] #### ANEU, ADIFF, CBC #### [address] [address] ALP [Catalytic activity/Vol] 193 40-135 U/L High 0 02-24-2020 [facility] ([place]) (0000 0) Comment: Performed By: #### GFR, BMP, PBNP, TROP #### [place] [address] #### ANEU, ADIFF, CBC #### [address] [address] ALT [Catalytic activity/Vol] 22 10-35 U/L Normal 0 02-24-2020 [facility] ([place]) (0000 0) Comment: Performed By: #### GFR, BMP, PBNP, TROP #### [place] [address] #### ANEU, ADIFF, CBC #### [address] [address] AST [Catalytic activity/Vol] 16 10-40 U/L Normal 0 02-24-2020 [facility] ([place]) (0000 0) Comment: Performed By: #### GFR, BMP, PBNP, TROP #### [place] [address] #### ANEU, ADIFF, CBC #### [address] [address] Bili Total 0.7 0.2-1.0 mg/dL Normal 02-24-2020 [facility] ([place]) (31663) Comment: Result Comment: Use of this assay is not recommended for patients undergoing treatment with eltrombopag d ue to the potential for falsely elevated results. Performed By: #### GFR, BMP, PBNP, TROP #### [place] [address] #### ANEU, ADIFF, CBC #### [address] [address] Calcium [Mass/Vol] 9.3 8.4-10.2 mg/dL Normal 02-24-2020 [facility] ([place]) (0000 0) Comment: Performed By: #### GFR, BMP, PBNP, TROP #### [place] [address] #### ANEU, ADIFF, CBC #### [address] [address] Chloride [Moles/Vol] 95 98-107 mmol/L Low 0 [facility] ([place]) (76481) Comment: Performed By: #### GFR, BMP, PBNP, TROP #### [place] [address] #### ANEU, ADIFF, CBC #### [address] [address] CO2 [Moles/Vol] 30 23-31 mmol/L Normal 02-24-2020 [facility] ([place]) (99291) Comment: Performed By: #### GFR, BMP, PBNP, TROP #### [place] [address] #### ANEU, ADIFF, CBC #### [address] [address] Creatinine [Mass/Vol] 1.28 0.55-1.02 mg/dL High 02-24-20 [facility] ([place]) (0000 0) Comment: Performed By: #### GFR, BMP, PBNP, TROP #### [place] [address] #### ANEU, ADIFF, CBC #### [address] [address] Electrolyte Balance 8.0 mEq/L Normal 02-24-2020 [facility] ([place]) (26916) Comment: Performed By: #### GFR, BMP, PBNP, TROP #### [place] [address] #### ANEU, ADIFF, CBC #### [address] [address] Globulin (S) [Mass/Vol] 3.4 G/dL Normal 2019 [facility] ([place]) (81597) Comment: Performed By: #### GFR, BMP, PBNP, TROP #### [place] [address] #### ANEU, ADIFF, CBC #### [address] [address] Glucose [Mass/Vol] 458 80-115 mg/dL Critically abnormal 0 02-24-2020 [facility] ([place]) (97801) Comment: Performed By: #### GFR, BMP, PBNP, TROP #### [place] [address] #### ANEU, ADIFF, CBC #### [address] [address] Potassium [Moles/Vol] 4.6 3.5-5.1 mmol/L Normal 02-24-20 [facility] ([place]) (0000 0) Comment: Performed By: #### GFR, BMP, PBNP, TROP #### [place] [address] #### ANEU, ADIFF, CBC #### [address] [address] Protein [Mass/Vol] 6.9 6.4-8.2 G/dL Normal 02-24-2020 [facility] ([place]) (39655) Comment: Performed By: #### GFR, BMP, PBNP, TROP #### [place] [address] #### ANEU, ADIFF, CBC #### [address] [address] Sodium [Moles/Vol] 133 136-145 mmol/L Low 02-24-2020 [facility] ([place]) (31088) Comment: Performed By: #### GFR, BMP, PBNP, TROP #### [place] [address] #### ANEU, ADIFF, CBC #### [address] [address] Urea nitrogen [Mass/Vol] 17 7-18 mg/dL Normal 02-23 [facility] ([place]) (0000 0) Comment: Performed By: #### GFR, BMP, PBNP, TROP #### [place] [address] #### ANEU, ADIFF, CBC #### [address] [address] Urea nitrogen/Creatinine [Mass 13 7-27 ratio Normal 02-24-2020 [facility]] [facility] ([place]) (51922) Comment: Performed By: #### GFR, BMP, PBNP, TROP #### [place] [address] #### ANEU, ADIFF, CBC #### [address] [address] a1c on 2020-02-24 HbA1c (Bld) [Mass fraction] 9.2 4.3-6.4 % High [facility] ([place]) (0000 0) Comment: Performed By: #### GFR, BMP, PBNP, TROP #### [place] [address] #### FRED DIAZ, CBC #### [place] [address] [place], [place] [address] .gfr on 2020-02-24 GFR Non- 42 ml/min/1.73sqm Normal 02-24-2020 [facility] ([place]) (92859) Comment: Result Comment: GFR Population mean for Afri can [place], Non- Americans Ages 20-29 = 116 mL/min/1.73 [...] By: #### GFR, BMP, PBNP, TROP #### [place] [address] #### FRED DIAZ, CBC #### [address] [address] GFR 51 ml/min/1.73sqm Normal [facility] ([place]) (0000 0) Comment: Result Comment: GFR Population mean for Afri can [place], Non- Americans Ages 20-29 = 116 mL/min/1.73 [...] By: #### GFR, BMP, PBNP, TROP #### [place] [address] #### ANEU, ADIFF, CBC #### [address] [address] vidh on 2019-11-16 Vit. D 25-Hydroxy 21 ng/mL Normal 11-16-2019 [facility] ([place]) (44035) Comment: Result Comment: Interpretive Values Based on Total 25(OH)D: Severe Deficiency <20 ng/mL Mild to Moderate Deficiency 20-30 ng/mL Optimum Levels 30-100 ng/mL Toxicity Possible >100 ng/mL Performed By: #### GFR, BMP, PBNP, TROP #### [place] [address] #### ANEU, ADIFF, CBC #### [address] [address] tsh on 2019-11-16 TSH Qn 2.00 0.36-3.74 mcIU/mL Normal 11-16-2019 [facility] ([place]) (71429) Comment: Performed By: #### GFR, BMP, PBNP, TROP #### [place] [address] #### ANEU, ADIFF, CBC #### [address] [address] lipid on 2019-11-16 Cholesterol [Mass/Vol] 157 0-200 mg/dL Normal 020 [facility] ([place]) (0000 0) Comment: Result Comment: Cholesterol Reference Interval: Less than 200 Desirable 200-239 Borderline high risk 240 and above High risk Performed By: #### GFR, BMP, PBNP, TROP #### [place] [address] #### ANEU, ADIFF, CBC #### [address] [address] Cholesterol in HDL 70 40-60 mg/dL High 11-16-2019 [facility] [Mass/Vol] ([place]) (000 00) Comment: Performed By: #### GFR, BMP, PBNP, TROP #### [place] [address] #### ANEU, ADIFF, CBC #### [address] [address] Cholesterol in LDL 67 0-130 mg/dL Normal 11-16-2019 [facility] [Mass/Vol] ([place]) (000 00) Comment: Performed By: #### GFR, BMP, PBNP, TROP #### [place] [address] #### ANEU, ADIFF, CBC #### [address] [address] Triglyceride [Mass/Vol] 100 0-150 mg/dL Normal 2019 [facility] ([place]) (0000 0) Comment: Result Comment: Triglyceride Reference Interval: Less than 150 Normal 150-199 Borderline high risk 200-499 High risk 500 or higher Very high risk Performed By: #### GFR, BMP, PBNP, TROP #### [place] [address] #### ANEU, ADIFF, CBC #### [address] [address] cmp on 2019-11-16 Albumin [Mass/Vol] 3.4 3.4-4.8 G/dL Normal 11-16-2019 [facility] ([place]) (06357) Comment: Performed By: #### GFR, BMP, PBNP, TROP #### [place] [address] #### ANEU, ADIFF, CBC #### [address] [address] Albumin/Globulin [Mass ratio] 1.0 1.1-2.5 ratio Low 11-16-2019 [facility] ([place]) (69316) Comment: Performed By: #### GFR, BMP, PBNP, TROP #### [place] [address] #### ANEU, ADIFF, CBC #### [address] [address] ALP [Catalytic activity/Vol] 197 40-135 U/L High 0 11-16-2019 [facility] ([place]) (0000 0) Comment: Performed By: #### GFR, BMP, PBNP, TROP #### [place] [address] #### ANEU, ADIFF, CBC #### [address] [address] ALT [Catalytic activity/Vol] 39 10-35 U/L High 0 11-16-2019 [facility] ([place]) (0000 0) Comment: Performed By: #### GFR, BMP, PBNP, TROP #### [place] [address] #### ANEU, ADIFF, CBC #### [address] [address] AST [Catalytic activity/Vol] 21 10-40 U/L Normal 0 11-16-2019 [facility] ([place]) (0000 0) Comment: Performed By: #### GFR, BMP, PBNP, TROP #### [place] [address] #### ANEU, ADIFF, CBC #### [address] [address] Bili Total 0.9 0.2-1.0 mg/dL Normal 11-16-2019 [facility] ([place]) (32903) Comment: Result Comment: Use of this assay is not recommended for patients undergoing treatment with eltrombopag d ue to the potential for falsely elevated results. Performed By: #### GFR, BMP, PBNP, TROP #### [place] [address] #### ANEU, ADIFF, CBC #### [address] [address] Calcium [Mass/Vol] 9.1 8.4-10.2 mg/dL Normal 11-16-2019 [facility] ([place]) (0000 0) Comment: Performed By: #### GFR, BMP, PBNP, TROP #### [place] [address] #### ANEU, ADIFF, CBC #### [address] [address] Chloride [Moles/Vol] 99 98-107 mmol/L Normal 0 [facility] ([place]) (0000 0) Comment: Performed By: #### GFR, BMP, PBNP, TROP #### [address] [address] #### ANEU, ADIFF, CBC #### [address] [address] CO2 [Moles/Vol] 30 23-31 mmol/L Normal 11-16-2019 [facility] ([place]) (90679) Comment: Performed By: #### GFR, BMP, PBNP, TROP #### [place] [address] #### ANEU, ADIFF, CBC #### [address] [address] Creatinine [Mass/Vol] 1.22 0.55-1.02 mg/dL High 11-16-19 20 [facility] ([place]) (0000 0) Comment: Performed By: #### GFR, BMP, PBNP, TROP #### [place] [address] #### ANEU, ADIFF, CBC #### [address] [address] Electrolyte Balance 7.0 mEq/L Normal 11-16-2019 [facility] ([place]) (23081) Comment: Performed By: #### GFR, BMP, PBNP, TROP #### [place] [address] #### ANEU, ADIFF, CBC #### [address] [address] Globulin (S) [Mass/Vol] 3.3 G/dL Normal 2019 [facility] ([place]) (12024) Comment: Performed By: #### GFR, BMP, PBNP, TROP #### [place] [address] #### ANEU, ADIFF, CBC #### [address] [address] Glucose [Mass/Vol] 329 80-115 mg/dL High 11-16-2019 [facility] ([place]) (56427) Comment: Performed By: #### GFR, BMP, PBNP, TROP #### [place] [address] #### ANEU, ADIFF, CBC #### [address] [address] Potassium [Moles/Vol] 4.8 3.5-5.1 mmol/L Normal 11-16-19 [facility] ([place]) (0000 0) Comment: Performed By: #### GFR, BMP, PBNP, TROP #### [place] [address] #### ANEU, ADIFF, CBC #### [address] [address] Protein [Mass/Vol] 6.7 6.4-8.2 G/dL Normal 11-16-2019 [facility] ([place]) (82669) Comment: Performed By: #### GFR, BMP, PBNP, TROP #### [place] [address] #### ANEU, ADIFF, CBC #### [address] [address] Sodium [Moles/Vol] 136 136-145 mmol/L Normal 11-16-2019 [facility] ([place]) (0000 0) Comment: Performed By: #### GFR, BMP, PBNP, TROP #### [place] [address] #### ANEU, ADIFF, CBC #### [address] [address] Urea nitrogen [Mass/Vol] 14 7-18 mg/dL Normal 11-15 [facility] ([place]) (0000 0) Comment: Performed By: #### GFR, BMP, PBNP, TROP #### [place] [address] #### ANEU, ADIFF, CBC #### [address] [address] Urea nitrogen/Creatinine [Mass 11 7-27 ratio Normal 11-16-2019 [facility] ([place]) ([address]240) Comment: Performed By: #### GFR, BMP, PBNP, TROP #### [address] [address] #### ANEU, ADIFF, CBC #### [address] [address] a1c on 2019-11-16 HbA1c (Bld) [Mass fraction] 8.5 4.3-6.4 % High [facility] ([place]) (0000 0) Comment: Performed By: #### GFR, BMP, PBNP, TROP #### [address] [address] #### ANEU, ADIFF, CBC #### [address] [address] .gfr on 2019-11-16 GFR Non- 44 ml/min/1.73sqm Normal 11-16-2019 [facility] ([place]) (42525) Comment: Result Comment: GFR Population mean for Afri can [place], Non- Americans Ages 20-29 = 116 mL/min/1.73 [...] By: #### GFR, BMP, PBNP, TROP #### [address] [address] #### ANEU, ADIFF, CBC #### [address] [address] GFR 54 ml/min/1.73sqm Normal 03- [facility] ([place]) (0000 0) Comment: Result Comment: GFR Population mean for Afri can [place], Non- Americans Ages 20-29 = 116 mL/min/1.73 [...] By: #### GFR, BMP, PBNP, TROP #### [place] [address] #### ANEU, ADIFF, CBC #### [address] [address] mri spine lumbar w/o contrast on 2019-08-18 MRI SPINE LUMBAR ORIGINAL Normal 08-18-2019 [facility] W/O CONTRAST MRI SPINE LUMBAR W/O CONTRAST [facility] ([place]) ([id number]) ORDERING PROVIDER: JENNY VIDES CLINICAL STATEMENT: lumbosacral root disease. TECHNIQUE: Sagittal T2, T1 and STIR; axial T1 and T2 weighte d images. COMPARISON: None. Vertebral Nomenclature: For purposes of this dictation, it is assumed that there are 5 [id number], lumbar-type vertebrae, and the most caudal fully [...] Erythrocyte distribution 14.6 11.5-14.5 % High 08-17 [facility] width (RBC) [Ratio] ([place]) (22823) Comment: Performed By: #### GFR, BMP, PBNP, TROP #### [address] [address] #### ANEU, ADIFF, CBC #### [address] [address] Hematocrit (Bld) [Volume 37.4 37.0-47.0 % Normal 08-17 [facility] fraction] ([place]) (0000 0) Comment: Performed By: #### GFR, BMP, PBNP, TROP #### [address] [address] #### ANEU, ADIFF, CBC #### [address] [address] Hemoglobin (Bld) 12.4 12.0-16.0 G/dL Normal 08-17-2019 [facility] [Mass/Vol] [facility] ([place]) (11017) Comment: Performed By: #### GFR, BMP, PBNP, TROP #### [address] [address] #### ANEU, ADIFF, CBC #### [address] [address] MCH (RBC) [Entitic mass] 27.8 27.0-31.2 pg Normal 08-17 [facility] ([place]) (0000 0) Comment: Performed By: #### GFR, BMP, PBNP, TROP #### [place] [address] #### ANEU, ADIFF, CBC #### [address] [address] MCHC (RBC) [Mass/Vol] 33.1 33.0-37.0 G/dL Normal 08-17-20 19 [facility] ([place]) (0000 0) Comment: Performed By: #### GFR, BMP, PBNP, TROP #### [place] [address] #### ANEU, ADIFF, CBC #### [address] [address] MCV (RBC) [Entitic vol] 83.8 80.0-94.0 fL Normal 2018 [facility] ([place]) (0000 0) Comment: Performed By: #### GFR, BMP, PBNP, TROP #### [place] [address] #### ANEU, ADIFF, CBC #### [address] [address] Platelet mean volume 7.7 7.4-10.4 fL Normal 9 [facility] (d) [Entitic vol] ([place]) (05614) Comment: Performed By: #### GFR, BMP, PBNP, TROP #### [place] [address] #### ANEU, ADIFF, CBC #### [address] [address] Platelets (Bld) [#/Vol] 277 130-400 10 3/mcL Normal 2018 [facility] ([place]) (42469) Comment: Performed By: #### GFR, BMP, PBNP, TROP #### [facility] [address] [place], [place] [address] #### ANEU, ADIFF, CBC #### [address] [address] RBC (Bld) [#/Vol] 4.47 4.20-5.40 10 6/mcL Normal 08-17-2019 [facility] ([place]) (0000 0) Comment: Performed By: #### GFR, BMP, PBNP, TROP #### [place] [address] #### ANEU, ADIFF, CBC #### [address] [address] WBC (Bld) [#/Vol] 10.70 4.60-10.80 10 3/mcL Normal 08-17-2019 [facility] ([place]) (56148) Comment: Performed By: #### GFR, BMP, PBNP, TROP #### [place] [address] #### ANEU, ADIFF, CBC #### [address] [address] bmp on 2019-08-17 Calcium [Mass/Vol] 9.1 8.4-10.2 mg/dL Normal 08-17-2019 [facility] ([place]) (0000 0) Comment: Performed By: #### GFR, BMP, PBNP, TROP #### [place] [address] #### ANEU, ADIFF, CBC #### [address] [address] Chloride [Moles/Vol] 100 98-107 mmol/L Normal 9 [facility] ([place]) (0000 0) Comment: Performed By: #### GFR, BMP, PBNP, TROP #### [place] [address] #### ANEU, ADIFF, CBC #### [address] [address] CO2 [Moles/Vol] 29 23-31 mmol/L Normal 08-17-2019 [facility] ([place]) (76834) Comment: Performed By: #### GFR, BMP, PBNP, TROP #### [place] [address] #### ANEU, ADIFF, CBC #### [address] [address] Creatinine [Mass/Vol] 0.99 0.55-1.02 mg/dL Normal 08-17-20 19 [facility] ([place]) (07452) Comment: Performed By: #### GFR, BMP, PBNP, TROP #### [place] [address] #### ANEU, ADIFF, CBC #### [address] [address] Electrolyte Balance 7.0 mEq/L Normal 08-17-2019 [facility] ([place]) (46410) Comment: Performed By: #### GFR, BMP, PBNP, TROP #### [place] [address] #### ANEU, ADIFF, CBC #### [address] [address] Glucose [Mass/Vol] 319 80-115 mg/dL High 08-17-2019 [facility] ([place]) (55997) Comment: Performed By: #### GFR, BMP, PBNP, TROP #### [place] [address] #### ANEU, ADIFF, CBC #### [address] [address] Potassium [Moles/Vol] 4.1 3.5-5.1 mmol/L Normal 08-17-20 19 [facility] ([place]) (0000 0) Comment: Performed By: #### GFR, BMP, PBNP, TROP #### [place] [address] #### ANEU, ADIFF, CBC #### [address] [address] Sodium [Moles/Vol] 136 136-145 mmol/L Normal 08-17-2019 [facility] ([place]) (0000 0) Comment: Performed By: #### GFR, BMP, PBNP, TROP #### [place] [address] #### ANEU, ADIFF, CBC #### [address] [id number] Urea nitrogen [Mass/Vol] 12 7-18 mg/dL Normal 08-17 [facility] ([place]) (0000 0) Comment: Performed By: #### GFR, BMP, PBNP, TROP #### [place] [address] #### ANEU, ADIFF, CBC #### [address] [address] Urea nitrogen/Creatinine [Mass 12 7-27 ratio Normal 08-17-2019 [facility]] [facility] ([place]) ([id number]) Comment: Performed By: #### GFR, BMP, PBNP, TROP #### [place] [address] #### ANEU, ADIFF, CBC #### [address] [address] .neuabs on Neutrophils (Bld) 7.60 2.85-6.16 10 3/mcL High 08-17-2019 [facility] [#/Vol] [facility] ([place]) ([id number]) Comment: Performed By: #### GFR, BMP, PBNP, TROP #### [place] [address] #### ANEU, ADIFF, CBC #### [address] [address] .gfr on 2019-08-17 GFR 68 ml/min/1.73sqm Normal 07-21 [facility] ([place]) (0000 0) Comment: Result Comment: GFR Population mean for Afri can Chadian, Non- Americans Ages 20-29 = 116 mL/min/1.73 [...] By: #### GFR, BMP, PBNP, TROP #### [place] [address] #### ANEU, ADIFF, CBC #### [address] [address] GFR Non- 56 ml/min/1.73sqm Normal 08-17-2019 [facility] ([place]) ([id number]) Comment: Result Comment: GFR Population mean for Afri can Chadian, Non- Americans Ages 20-29 = 116 mL/min/1.73 [...] By: #### GFR, BMP, PBNP, TROP #### [place] [address] #### ANEU, ADIFF, CBC #### [address] [address] .auto diff on 08-17 Ammonia (P) [Mass/Vol] 0.70 0.15-1.00 10 3/mcL Normal 019 [facility] ([place]) ([id number]) Comment: Performed By: #### GFR, BMP, PBNP, TROP #### [place] [address] #### ANEU, ADIFF, CBC #### [address] [address] Basophils (Bld) 0.10 0.00-0.19 10 3/mcL Normal 08-17-2019 [facility] [#/Vol] [facility] ([place]) ([id number]) Comment: Performed By: #### GFR, BMP, PBNP, TROP #### [place] [address] #### ANEU, ADIFF, CBC #### [address] [address] Basophils/100 WBC (Bld) 0.6 0.0-2.5 % Normal 2018 [facility] ([place]) (0000 0) Comment: Performed By: #### GFR, BMP, PBNP, TROP #### [place] [address] #### ANEU, ADIFF, CBC #### [address] [address] Eosinophils (Bld) 0.30 0.00-0.40 10 3/mcL Normal 08-17-2019 [facility] [#/Vol] [facility] ([place]) (83903) Comment: Performed By: #### GFR, BMP, PBNP, TROP #### [place] [address] #### ANEU, ADIFF, CBC #### [address] [address] Eosinophils/100 WBC (Bld) 2.6 0.0-7.0 % Normal 07-21 [facility] ([place]) (0000 0) Comment: Performed By: #### GFR, BMP, PBNP, TROP #### [place] [address] #### ANEU, ADIFF, CBC #### [address] [address] Lymphocytes (Bld) 2.10 0.77-3.85 10 3/mcL Normal 08-17-2019 [facility] [#/Vol] [facility] ([place]) (93314) Comment: Performed By: #### GFR, BMP, PBNP, TROP #### [place] [address] #### ANEU, ADIFF, CBC #### [address] [address] Lymphocytes/100 WBC (Bld) 19.5 10.0-50.0 % Normal 07-21 [facility] ([place]) (40544) Comment: Performed By: #### GFR, BMP, PBNP, TROP #### [place] [address] #### ANEU, ADIFF, CBC #### [address] [address] Monocytes/100 WBC (Bld) 6.5 1.7-13.0 % Normal 2018 [facility] ([place]) (0000 0) Comment: Performed By: #### GFR, BMP, PBNP, TROP #### [place] [address] #### ANEU, ADIFF, CBC #### [address] [address] Neutrophils/100 WBC (Bld) 70.8 37.0-80.0 % Normal 07-21 [facility] ([place]) ([id number]) Comment: Performed By: #### GFR, BMP, PBNP, TROP #### [place] [address] #### ANEU, ADIFF, CBC #### [address] [address] xr femur minimum 2 views left on 2019-07-31 XR FEMUR MINIMUM 2 ORIGINAL Normal 07-31-2019 [facility] VIEWS LEFT XR FEMUR 4 VIEWS LEFT [facility] ([place]) ([id number]) CLINICAL STATEMENT: pain, in left hip. COMPARISON: [...] lund on 2019-06-14 CUR . Normal 06-14-2019 [facility] - Microbiology [facility] ([place]) ([id number]) PROCEDURE: Urine Culture [*1] SOURCE: Urine, Clean [...] Locations *1: This test was performed at: [facility], [address] [place] [address], [address] , [place] Comment: Performed By: #### GFR, BMP, PBNP, TROP #### [address] [address] #### ANEU, ADIFF, CBC #### [place] [address] [place], [place] [address] cbc on 2019-06-13 Erythrocyte distribution 15.3 11.5-14.5 % High 06-13 [facility] width (RBC) [Ratio] ([place]) (35626) Comment: Performed By: #### GFR, BMP, PBNP, TROP #### [place] [address] #### ANEU, ADIFF, CBC #### [address] [address] Hematocrit (Bld) [Volume 35.2 37.0-47.0 % Low 06-13 [facility] fraction] ([place]) (0000 0) Comment: Performed By: #### GFR, BMP, PBNP, TROP #### [place] [address] #### ANEU, ADIFF, CBC #### [address] [address] Hemoglobin (Bld) 11.6 12.0-16.0 G/dL Low 06-13-2019 [facility] [Mass/Vol] ([place]) (000 00) Comment: Performed By: #### GFR, BMP, PBNP, TROP #### [place] [address] #### ANEU, ADIFF, CBC #### [address] [address] MCH (RBC) [Entitic mass] 27.8 27.0-31.2 pg Normal 06-13 [facility] ([place]) (0000 0) Comment: Performed By: #### GFR, BMP, PBNP, TROP #### [place] [address] #### ANEU, ADIFF, CBC #### [address] [address] MCHC (RBC) [Mass/Vol] 33.0 33.0-37.0 G/dL Normal 06-13-20 [facility] ([place]) (0000 0) Comment: Performed By: #### GFR, BMP, PBNP, TROP #### [place] [address] #### ANEU, ADIFF, CBC #### [address] [address] MCV (RBC) [Entitic vol] 84.3 80.0-94.0 fL Normal 2018 [facility] ([place]) (0000 0) Comment: Performed By: #### GFR, BMP, PBNP, TROP #### [place] [address] #### ANEU, ADIFF, CBC #### [address] [address] Platelet mean volume 7.4 7.4-10.4 fL Normal 9 [facility] (Bld) [Entitic vol] ([place]) (13583) Comment: Performed By: #### GFR, BMP, PBNP, TROP #### [place] [address] #### ANEU, ADIFF, CBC #### [address] [address] Platelets (Bld) [#/Vol] 234 130-400 10 3/mcL Normal 2018 [facility] ([place]) (86694) Comment: Performed By: #### GFR, BMP, PBNP, TROP #### [place] [address] #### ANEU, ADIFF, CBC #### [address] [address] RBC (Bld) [#/Vol] 4.17 4.20-5.40 10 6/mcL Low 06-13-2019 [facility] ([place]) (0000 0) Comment: Performed By: #### GFR, BMP, PBNP, TROP #### [place] [address] #### ANEU, ADIFF, CBC #### [address] [address] WBC (Bld) [#/Vol] 11.60 4.60-10.80 10 3/mcL High 06-13-2019 [facility] ([place]) (0000 0) Comment: Performed By: #### GFR, BMP, PBNP, TROP #### [place] [address] #### ANEU, ADIFF, CBC #### [address] [address] bmp on 2019-06-13 Calcium [Mass/Vol] 8.5 8.4-10.2 mg/dL Normal 06-13-2019 [facility] ([place]) (0000 0) Comment: Performed By: #### GFR, BMP, PBNP, TROP #### [place] [address] #### ANEU, ADIFF, CBC #### [address] [address] Chloride [Moles/Vol] 101 98-107 mmol/L Normal 9 [facility] ([place]) (0000 0) Comment: Performed By: #### GFR, BMP, PBNP, TROP #### [place] [address] #### ANEU, ADIFF, CBC #### [address] [address] CO2 [Moles/Vol] 38 23-31 mmol/L High 06-13-2019 [facility] ([place]) (86931) Comment: Performed By: #### GFR, BMP, PBNP, TROP #### [place] [address] #### ANEU, ADIFF, CBC #### [address] [address] Creatinine [Mass/Vol] 1.42 0.55-1.02 mg/dL High 06-13-20 19 [facility] ([place]) (0000 0) Comment: Performed By: #### GFR, BMP, PBNP, TROP #### [place] [address] #### ANEU, ADIFF, CBC #### [address] [address] Electrolyte Balance 3.0 mEq/L Normal 06-13-2019 [facility] ([place]) (41564) Comment: Performed By: #### GFR, BMP, PBNP, TROP #### [place] [address] #### ANEU, ADIFF, CBC #### [address] [address] Glucose [Mass/Vol] 164 80-115 mg/dL High 06-13-2019 [facility] ([place]) (87842) Comment: Performed By: #### GFR, BMP, PBNP, TROP #### [place] [address] #### ANEU, ADIFF, CBC #### [address] [address] Potassium [Moles/Vol] 4.0 3.5-5.1 mmol/L Normal 06-13-20 [facility] ([place]) (0000 0) Comment: Performed By: #### GFR, BMP, PBNP, TROP #### [place] [address] #### ANEU, ADIFF, CBC #### [address] [address] Sodium [Moles/Vol] 142 136-145 mmol/L Normal 06-13-2019 [facility] ([place]) (0000 0) Comment: Performed By: #### GFR, BMP, PBNP, TROP #### [place] [address] #### ANEU, ADIFF, CBC #### [address] [address] Urea nitrogen [Mass/Vol] 10 7-18 mg/dL Normal 06-13 [facility] ([place]) (0000 0) Comment: Performed By: #### GFR, BMP, PBNP, TROP #### [place] [address] #### ANEU, ADIFF, CBC #### [address] [address] Urea nitrogen/Creatinine [Mass 7 7-27 ratio Normal 06-13-2019 [facility]] [facility] ([place]) (09789) Comment: Performed By: #### GFR, BMP, PBNP, TROP #### [address] [address] #### ANEU, ADIFF, CBC #### [address] [address] .neuabs on Neutrophils (Bld) 8.40 2.85-6.16 10 3/mcL High 06-13-2019 [facility] [#/Vol] [facility] ([place]) (76608) Comment: Performed By: #### GFR, BMP, PBNP, TROP #### [place] [id number] #### ANEU, ADIFF, CBC #### [address] [address] .gfr on 2019-06-13 GFR 45 ml/min/1.73sqm Normal 05-20 [facility] ([place]) (0000 0) Comment: Result Comment: GFR Population mean for Afri can [place], Non- Americans Ages 20-29 = 116 mL/min/1.73 [...] By: #### GFR, BMP, PBNP, TROP #### [address] [address] #### ANEU, ADIFF, CBC #### [address] [address] GFR Non- 37 ml/min/1.73sqm Normal 06-13-2019 [facility] ([place]) (35183) Comment: Result Comment: GFR Population mean for Afri can Ch[place], Non- Americans Ages 20-29 = 116 mL/min/1.73 [...] By: #### GFR, BMP, PBNP, TROP #### [place] [address] #### ANEU, ADIFF, CBC #### [address] [address] .auto diff on 06-13 Ammonia (P) [Mass/Vol] 0.90 0.15-1.00 10 3/mcL Normal [address] [place] [address] ([place]) (98596) Comment: Performed By: #### GFR, BMP, PBNP, TROP #### [place] [address] #### ANEU, ADIFF, CBC #### [address] [address] Basophils (Bld) 0.10 0.00-0.19 10 3/mcL Normal 06-13-2019 [facility] [#/Vol] [facility] ([place]) (90397) Comment: Performed By: #### GFR, BMP, PBNP, TROP #### [place] [address] #### ANEU, ADIFF, CBC #### [address] [address] Basophils/100 WBC (Bld) 0.5 0.0-2.5 % Normal 2018 [facility] ([place]) (0000 0) Comment: Performed By: #### GFR, BMP, PBNP, TROP #### [place] [address] #### ANEU, ADIFF, CBC #### [address] [address] Eosinophils (Bld) 0.30 0.00-0.40 10 3/mcL Normal 06-13-2019 [facility] [#/Vol] [facility] ([place]) (13174) Comment: Performed By: #### GFR, BMP, PBNP, TROP #### [place] [address] #### ANEU, ADIFF, CBC #### [address] [address] Eosinophils/100 WBC (Bld) 2.3 0.0-7.0 % Normal 05-20 [facility] ([place]) (0000 0) Comment: Performed By: #### GFR, BMP, PBNP, TROP #### [place] [address] #### ANEU, ADIFF, CBC #### [address] [address] Lymphocytes (Bld) 2.10 0.77-3.85 10 3/mcL Normal 06-13-2019 [facility] [#/Vol] [facility] ([place]) (22595) Comment: Performed By: #### GFR, BMP, PBNP, TROP #### [place] [address] #### ANEU, ADIFF, CBC #### [address] [address] Lymphocytes/100 WBC (Bld) 17.9 10.0-50.0 % Normal 05-20 [facility] ([place]) (69658) Comment: Performed By: #### GFR, BMP, PBNP, TROP #### [place] [address] #### ANEU, ADIFF, CBC #### [address] [address] Monocytes/100 WBC (Bld) 7.4 1.7-13.0 % Normal 2018 [facility] ([place]) (0000 0) Comment: Performed By: #### GFR, BMP, PBNP, TROP #### [address] [address] #### ANEU, ADIFF, CBC #### [facility] [address] [place], [place] [address] Neutrophils/100 WBC (Bld) 71.9 37.0-80.0 % Normal 05-20 [facility] ([place]) (60767) Comment: Performed By: #### GFR, BMP, PBNP, TROP #### [address] [address] #### ANEU, ADIFF, CBC #### [facility] [address] [place], [place] [address] xr chest 2 views on 2019-06-12 XR CHEST 2 VIEWS ORIGINAL Normal 06-12-2019 [facility] Chest PA and lateral 06/12/2019 9:43 AM [facility] ([place]) (07436) History: Chest Pain The heart and pulmonary [...] 2019-06-12 Color (U) Yellow Normal 06-12-2019 [facility] ([place]) (27672) Comment: Performed By: #### UAMICAO, UA #### [address] [address] Glucose (U) [Mass/Vol] Negative Negative mg/dL Normal 019 [facility] ([place]) (04042) Comment: Performed By: #### UAMICAO, UA #### [address] [address] Ketones Ql (U) Negative Negative Normal 06-12-2019 [facility] ([place]) (83288) Comment: Performed By: #### UAMICAO, UA #### [address] [address] UA Appear Cloudy Clear Abnormal 06-12-2019 [facility] ([place]) (12127) Comment: Performed By: #### UAMICAO, UA #### [address] [address] UA Blood Small Negative Abnormal 06-12-2019 [facility] ([place]) (41055) Comment: Performed By: #### UAMICAO, UA #### [address] [address] UA Leuk Est Moderate Negative Abnormal 06-12-2019 [facility] ([place]) (36875) Comment: Performed By: #### UAMICAO, UA #### [address] [address] UA Nitrite Positive Negative Abnormal 06-12-2019 [facility] ([place]) (94002) Comment: Performed By: #### UAMICAO, UA #### [place] [address] UA pH 7.0 5.0 - 8.0 Normal 06-12-2019 [facility] ([place]) (94979) Comment: Performed By: #### UAMICAO, UA #### [place] [address] UA Protein 30 Negative mg/dL Normal 06-12-2019 [facility] ([place]) (88541) Comment: Performed By: #### UAMICAO, UA #### [address] [address] UA Spec Grav 1.015 1.015-1.025 Normal 06-12-2019 [facility] ([place]) (67843) Comment: Performed By: #### UAMICAO, UA #### [address] [address] UA Specimen Type Clean Catch Normal 06-12-2019 [facility] ([place]) (15790) Comment: Performed By: #### UAMICAO, UA #### [address] [address] UA Urobilinogen 0.2 0.2-1.0 E.U./dL Normal 06-12-2019 [facility] ([place]) (01769) Comment: Performed By: #### UAMICAO, UA #### [address] [address] Urobilinogen Qn (U) Negative Negative Normal 06-12-2019 [facility] ([place]) (0000 0) Comment: Performed By: #### UAMICAO, UA #### [address] [address] trop on 2019-06-12 Troponin I.cardiac <0.020 0.000-0.040 ng/mL Normal 9 [facility] [Mass/Vol] [facility] [facility] [place] (43154) Comment: Result Comment: Troponin I r eference range: 0.00-0.040 ng/mL Negative an d non-diagnostic. >0.040 ng/mL Consistent with cardiac damage, increased clinical risk and possibility of myocardial in farction. Serial measurements, a rise & fall in test results, clinical histo ry, appropriate symptoms and/or ECG changes may help assess possibility of HI. *Other non-acute coronary sy ndrome conditions such as CHF, myoc arditis, pulmonary emboli, sepsis and cardiac surgery could result in myoc ardial damage and increased troponi n levels. Performed By: #### GFR, BMP, PBNP, TROP #### [place] [address] #### ANEU, ADIFF, CBC #### [address] [address] pbnp on 2019-06-12 Natriuretic peptide B (Bld) 940 0-125 pg/mL High [facility] [Mass/Vol] ([place]) (000 00) Comment: Result Comment: NT-proBNP re sults of less than 300 pg/mL effectively rules out acute congestive h eart failure with 99% negative predictive value. Performed By: #### GFR, BMP, PBNP, TROP #### [place] [address] #### ANEU, ADIFF, CBC #### [address] [address] cbc on 2019-06-12 Erythrocyte distribution 14.8 11.5-14.5 % High 06-12 [facility] width (RBC) [Ratio] ([place]) (56967) Comment: Performed By: #### GFR, BMP, PBNP, TROP #### [place] [address] #### ANEU, ADIFF, CBC #### [address] [address] Hematocrit (Bld) [Volume 37.7 37.0-47.0 % Normal 06-12 [facility] fraction] ([place]) (0000 0) Comment: Performed By: #### GFR, BMP, PBNP, TROP #### [place] [address] #### ANEU, ADIFF, CBC #### [address] [address] Hemoglobin (Bld) 12.5 12.0-16.0 G/dL Normal 06-12-2019 [facility] [Mass/Vol] [facility] [place] (64644) Comment: Performed By: #### GFR, BMP, PBNP, TROP #### [place] [address] #### ANEU, ADIFF, CBC #### [address] [address] MCH (RBC) [Entitic mass] 27.8 27.0-31.2 pg Normal 06-12 [facility] ([place]) (0000 0) Comment: Performed By: #### GFR, BMP, PBNP, TROP #### [place] [address] #### ANEU, ADIFF, CBC #### [address] [address] MCHC (RBC) [Mass/Vol] 33.2 33.0-37.0 G/dL Normal 06-12-20 [facility] ([place]) (0000 0) Comment: Performed By: #### GFR, BMP, PBNP, TROP #### [place] [address] #### ANEU, ADIFF, CBC #### [address] [address] MCV (RBC) [Entitic vol] 83.8 80.0-94.0 fL Normal 2018 [facility] ([place]) (0000 0) Comment: Performed By: #### GFR, BMP, PBNP, TROP #### [place] [address] #### ANEU, ADIFF, CBC #### [address] [address] Platelet mean volume 8.1 7.4-10.4 fL Normal 9 [facility] (Bld) [Entitic vol] ([place]) (38162) Comment: Performed By: #### GFR, BMP, PBNP, TROP #### [place] [address] #### ANEU, ADIFF, CBC #### [address] [address] Platelets (Bld) [#/Vol] 242 130-400 10 3/mcL Normal 2018 [facility] ([place]) (53417) Comment: Performed By: #### GFR, BMP, PBNP, TROP #### [place] [address] #### ANEU, ADIFF, CBC #### [address] [address] RBC (Bld) [#/Vol] 4.50 4.20-5.40 10 6/mcL Normal 06-12-2019 [facility] ([place]) (0000 0) Comment: Performed By: #### GFR, BMP, PBNP, TROP #### [place] [address] #### ANEU, ADIFF, CBC #### [address] [address] WBC (Bld) [#/Vol] 10.00 4.60-10.80 10 3/mcL Normal 06-12-2019 [facility] ([place]) (02399) Comment: Performed By: #### GFR, BMP, PBNP, TROP #### [address] [address] #### ANEU, ADIFF, CBC #### [address] [address] bmp on 2019-06-12 Calcium [Mass/Vol] 8.2 8.4-10.2 mg/dL Low 06-12-2019 [facility] ([place]) (92309) Comment: Order Comment: Hemolyzed - P lease redraw Performed By: #### GFR, BMP, PBNP, TROP #### [address] [address] #### ANEU, ADIFF, CBC #### [address] [address] Chloride [Moles/Vol] 101 98-107 mmol/L Normal [facility] ([place]) (0000 0) Comment: Order Comment: Hemolyzed - P lease redraw Performed By: #### GFR, BMP, PBNP, TROP #### [address] [address] #### ANEU, ADIFF, CBC #### [address] [address] CO2 [Moles/Vol] 30 23-31 mmol/L Normal 06-12-2019 [facility] ([place]) (51946) Comment: Order Comment: Hemolyzed - P lease redraw Performed By: #### GFR, BMP, PBNP, TROP #### [address] [address] #### ANEU, ADIFF, CBC #### [address] [address] Creatinine [Mass/Vol] 1.07 0.55-1.02 mg/dL High 06-12-20 19 [facility] ([place]) (0000 0) Comment: Order Comment: Hemolyzed - P lease redraw Performed By: #### GFR, BMP, PBNP, TROP #### [place] [address] #### ANEU, ADIFF, CBC #### [address] [address] Electrolyte Balance 9.0 mEq/L Normal 06-12-2019 [facility] ([place]) (32542) Comment: Order Comment: Hemolyzed - P lease redraw Performed By: #### GFR, BMP, PBNP, TROP #### [place] [address] #### ANEU, ADIFF, CBC #### [address] [address] Glucose [Mass/Vol] 232 80-115 mg/dL High 06-12-2019 [facility] ([place]) (63922) Comment: Order Comment: Hemolyzed - P lease redraw Performed By: #### GFR, BMP, PBNP, TROP #### [place] [address] #### ANEU, ADIFF, CBC #### [address] [address] Potassium [Moles/Vol] 3.8 3.5-5.1 mmol/L Normal 06-12-20 [facility] ([place]) (0000 0) Comment: Order Comment: Hemolyzed - P lease redraw Performed By: #### GFR, BMP, PBNP, TROP #### [place] [address] #### ANEU, ADIFF, CBC #### [address] [address] Sodium [Moles/Vol] 140 136-145 mmol/L Normal 06-12-2019 [facility] ([place]) (0000 0) Comment: Order Comment: Hemolyzed - P lease redraw Performed By: #### GFR, BMP, PBNP, TROP #### [place] [address] #### ANEU, ADIFF, CBC #### [address] [address] Urea nitrogen [Mass/Vol] 7 7-18 mg/dL Normal 06-12 [facility] ([place]) (0000 0) Comment: Order Comment: Hemolyzed - P lease redraw Performed By: #### GFR, BMP, PBNP, TROP #### [address] [address] #### ANEU, ADIFF, CBC #### [address] [address] Urea nitrogen/Creatinine [Mass 7 7-27 ratio Normal 06-12-2019 [facility] ([place]) (21200) Comment: Order Comment: Hemolyzed - P lease redraw Performed By: #### GFR, BMP, PBNP, TROP #### [place] [address] #### ANEU, ADIFF, CBC #### [address] [address] .urinalysis microscopic (ao) on 2019-06-12 RBC (U) [#/Vol] 0-5 None Seen Abnormal 06-12-2019 [facility] ([place]) (36524) Comment: Performed By: #### UAMICAO, UA #### [place] [address] UA Bacteria 4+ /hpf Abnormal 06-12-2019 [facility] ([place]) (84315) Comment: Performed By: #### UAMICAO, UA #### [place] [address] UA Squam Epithelial 0-5 None Seen Abnormal 06-12-2019 [facility] ([place]) (0000 0) Comment: Performed By: #### UAMICAO, UA #### [address] [address] UA WBC LOADED None Seen Abnormal 06-12-2019 [facility] ([place]) (90089) Comment: Performed By: #### UAMICAO, UA #### [address] [address] .neuabs on Neutrophils (Bld) 6.30 2.85-6.16 10 3/mcL High 06-12-2019 [facility] [#/Vol] [facility] ([place]) (43728) Comment: Performed By: #### GFR, BMP, PBNP, TROP #### [place] [id number] #### ANEU, ADIFF, CBC #### [address] [address] .gfr on 2019-06-12 GFR 63 ml/min/1.73sqm Normal 05-20 [facility] ([place]) (0000 0) Comment: Result Comment: GFR Population mean for Afri can Chadian, Non- Americans Ages 20-29 = 116 mL/min/1.73 [...] By: #### GFR, BMP, PBNP, TROP #### [place] [address] #### ANEU, ADIFF, CBC #### [address] [address] GFR Non- 52 ml/min/1.73sqm Normal 06-12-2019 [facility] ([place]) (19928) Comment: Result Comment: GFR Population mean for Afri can Chadian, Non- Americans Ages 20-29 = 116 mL/min/1.73 [...] By: #### GFR, BMP, PBNP, TROP #### [place] [address] #### ANEU, ADIFF, CBC #### [address] [address] .auto diff on 06-12 Ammonia (P) [Mass/Vol] 0.70 0.15-1.00 10 3/mcL Normal 019 [facility] ([place]) (51606) Comment: Performed By: #### GFR, BMP, PBNP, TROP #### [place] [address] #### ANEU, ADIFF, CBC #### [address] [address] Basophils (Bld) 0.20 0.00-0.19 10 3/mcL High 06-12-2019 [facility] [#/Vol] [facility] ([place]) (31232) Comment: Performed By: #### GFR, BMP, PBNP, TROP #### [place] [address] #### ANEU, ADIFF, CBC #### [address] [address] Basophils/100 WBC (Bld) 1.5 0.0-2.5 % Normal 2018 [facility] ([place]) (0000 0) Comment: Performed By: #### GFR, BMP, PBNP, TROP #### [place] [address] #### ANEU, ADIFF, CBC #### [address] [address] Eosinophils (Bld) 0.40 0.00-0.40 10 3/mcL Normal 06-12-2019 [facility] [#/Vol] [facility] ([place]) (63586) Comment: Performed By: #### GFR, BMP, PBNP, TROP #### [place] [address] #### ANEU, ADIFF, CBC #### [address] [address] Eosinophils/100 WBC (Bld) 3.5 0.0-7.0 % Normal 05-20 [facility] ([place]) (0000 0) Comment: Performed By: #### GFR, BMP, PBNP, TROP #### [place] [address] #### ANEU, ADIFF, CBC #### [address] [address] Lymphocytes (Bld) 2.50 0.77-3.85 10 3/mcL Normal 06-12-2019 [facility] [#/[facility]] [facility] ([place]) (21898) Comment: Performed By: #### GFR, BMP, PBNP, TROP #### [place] [address] #### ANEU, ADIFF, CBC #### [address] [address] Lymphocytes/100 WBC (Bld) 24.7 10.0-50.0 % Normal 05-20 [facility] ([place]) (64176) Comment: Performed By: #### GFR, BMP, PBNP, TROP #### [place] [address] #### ANEU, ADIFF, CBC #### [address] [address] Monocytes/100 WBC (Bld) 6.9 1.7-13.0 % Normal 2018 [facility] ([place]) (0000 0) Comment: Performed By: #### GFR, BMP, PBNP, TROP #### [place] [address] #### ANEU, ADIFF, CBC #### [address] [address] Neutrophils/100 WBC (Bld) 63.4 37.0-80.0 % Normal 05-20 [facility] ([place]) (87981) Comment: Performed By: #### GFR, BMP, PBNP, TROP #### [facility] [address] [place], [place] [address] #### ANEU, ADIFF, CBC #### [place] [address] [place], [place] [address] urine w microsc on 2018-08-31 Appearance Nom (U) Cloudy CLEAR Normal 08-31-2018 [facility] (82883) Comment: Performed By: #### L600.0000 3 ####[facility] [id number] [place], [place] [address]Ws# [phone] Color Nom (U) Yellow Normal 08-31-2018 [facility] (56641) Comment: Performed By: #### L600.0000 3 ####[facility] [id number] [place], [place] [address]Ro# [phone] Glucose mass conc (U) NEG mg/dL Normal 08-31-19 [facility] (89710) Comment: Performed By: #### L600.0000 3 ####[facility] ZCQEFOYIKY8638 [place], [place] [address]Cl# HYALINE CAST 86 0-1 /LPF High 08-31-2018 [facility] (16870) Comment: Performed By: #### L600.0000 3 ####[facility] [id number] [place], [place] [address]Cy# Mucus Ql (Urine sed) TRACE Normal 9 [facility] (03862) Comment: Performed By: #### L600.0000 3 ####[facility] DQWHIPAYNS6726 [place], [place] [address]Ni# [phone] Protein mass conc (U) NEGATIVE NEGATIVE mg/dL Normal 08-31-19 [facility] (00 000) Comment: Performed By: #### L600.0000 3 ####[facility] AIKVPSATGU9969 [place], [place] [address]Gi# [phone] SQUAMOUS EPIS 1 0-5 EPI/HPF Normal 08-31-2018 [facility] (42075) Comment: Performed By: #### L600.0000 3 ####[facility] RIELEPBHJX3267 [place], [place] [address]Ye# [phone] UA BACTERIA 4+ NONE /HPF Normal 08-31-2018 [facility] (44336) Comment: Performed By: #### L600.0000 3 ####[facility] VVNZMTTXFU6570 [place], [place] [address]Ij# [phone] UA BILIRUBIN NEGATIVE Normal 08-31-2018 [facility] (89097) Comment: Performed By: #### L600.0000 3 ####[facility] LFXOIESXCP0672 [place], [place] [address]Ce# UA BLOOD NEGATIVE NEGATIVE Normal 08-31-2018 [facility] (38160) Comment: Performed By: #### L600.0000 3 ####[facility] [id number] [place] [address]Kk# [phone] UA KETONE NEGATIVE Normal 08-31-2018 [facility] (88547) Comment: Performed By: #### L600.0000 3 ####[facility] STPGKOYEVX7191 [place], [place] [address]Mv# UA LK ESTERASE 500 NEGATIVE Normal 08-31-2018 [facility] (55994) Comment: Performed By: #### L600.0000 3 ####[facility] NFDXTXRLHX3075 [place], [place] [address]Nk# [phone] UA NITRITE NEGATIVE NEGATIVE Normal 08-31-2018 [facility] (00307) Comment: Performed By: #### L600.0000 3 ####[facility] JUCUDYGLUA1563 [place], [place] [address]Mu# UA PH 5.0 Normal 08-31-2018 [facility] (98190) Comment: Performed By: #### L600.0000 3 ####[facility] JDKXPZODCA2198 [place], [place] [address]Pz# [phone] UA RBC 1 0-3 RBC/HPF Normal 08-31-2018 [facility] (86787) Comment: Performed By: #### L600.0000 3 ####[facility] ROJEWWICRB6381 [place], [place] [address]Ni# [phone] UA SPEC GRAV 1.013 1.005-1.030 Normal 08-31-2018 [facility] (67453) Comment: Performed By: #### L600.0000 3 ####[facility] CJBWIETKUU0309 [place], [place] [address]Tc# [phone] UA UROBILINOGEN NEG Normal 08-31-2018 [facility] (37547) Comment: Performed By: #### L600.0000 3 ####[facility] WQKSUPOCBN3178 [place], [place] [address]Kj# [phone] UA WBC 293 0-5 WBC/HPF High 08-31-2018 [facility] (13482) Comment: Performed By: #### L600.0000 3 ####[facility] DUXVEAPHEH7570 [place], [place] [address]Vr# [phone] UA YEAST MANY NONE Normal 08-31-2018 [facility] (86002) Comment: Performed By: #### L600.0000 3 ####[facility] NDHDHDDVOH8567 [place], [place] [address]Qx# WBC CLUMPS FEW Normal 08-31-2018 [facility] (33956) Comment: Performed By: #### L600.0000 3 ####[facility] OBUWVWSJMH1231 [place], [place] [address]Vz# [phone] gfr est on IF AMER 14 ML/MIN Normal 08-31-2018 [facility] (29160) Comment: Performed By: #### L500.0140 0, L500.11514, L550.10342 ####[facility] CMPBALCUVF3910 [place], [place] [address]Gy# [phone] IF non-AFR AMER 12 ML/MIN [facility]97930[facility] Comment: Performed By: #### L500.0140 0, L500.88749, L550.65565 ####[facility] YOFNULBCTP6713 [place], [place] [address]Nh# [phone] crp on 2018-08-31 CRP mass conc 4.13 0.00-0.32 MG/DL High 08-31-2018 [facility] (68016) Comment: Performed By: #### L500.0140 0, L500.06338, L550.73777 ####[facility] NJMJYVDMWS6024 [place], [place] [address]Vf# [phone] cmp on 2018-08-31 Albumin mass conc 2.9 3.2-5.0 GM/DL Low 08-31-2018 [facility] (50719) Comment: Performed By: #### L500.0140 0, L500.68157, L550.41097 ####[facility] BWVGTAYPMF9362 [place], [place] [address]Se# [phone] Albumin/Globulin mass ratio 0.9 0.8-2.0 {ratio} Normal [facility] [place] (94962) Comment: Performed By: #### L500.0140 0, L500.64881, L550.64726 ####[facility] JEPKHXZGHQ8744 [place], [place] [address]Cy# [phone] ALK PHOS 179 45-117 U/L High 08-31-2018 [facility] (95414) Comment: Performed By: #### L500.0140 0, L500.83269, L550.42358 ####[facility] FHDJYPCLZQ8582 [place], [place] [address]Vs# [phone] ALT enzyme act/vol 78 13-61 IU/L High 08-31-2018 [facility] (37384) Comment: Result Comment: RESULTS MAY BE FALSELY DEPRESSED AFTER THE ADMINISTRATION OFSULFASALAZINE AND/OR SULFA PYRIDINE. Performed By: #### L500.0140 0, L500.85645, L550.53556 ####[facility] LGJOKYBFHV3246 [place], [place] [address]Fw# [phone] Anion gap molar conc 8 5-16 MMOL/L Normal 9 [facility] (93143) Comment: Performed By: #### L500.0140 0, L500.92180, L550.07535 ####[facility] ASQBDGFGUB2550 [place], [place] [address]Uh# [phone] BILI TOTAL 1.0 0.2-1.0 MG/DL Normal 08-31-2018 [facility] (69938) Comment: Performed By: #### L500.0140 0, L500.65219, L550.90640 ####[facility] YSQKTRZWOP5473 [place], [place] [address]Vb# [phone] Calcium mass conc 8.5 8.5-10.1 MG/DL Normal 08-31-2018 [facility] (04239) Comment: Performed By: #### L500.0140 0, L500.33536, L550.03556 ####[facility] FPNZLSQHFP9024 [place], [place] [address]Ce# [phone] Chloride molar conc 94 98-107 MMOL/L Low 08-31-2018 [facility] (41070) Comment: Performed By: #### L500.0140 0, L500.99861, L550.33768 ####[facility] IQFBLRVBRO8758 [place], [place] [address]Aa# [phone] CO2 molar conc 28 21-32 MMOL/L Normal 08-31-2018 [facility] (43895) Comment: Performed By: #### L500.0140 0, L500.25442, L550.42942 ####[facility] MLEMYMWVGY2813 [place], [place] [address]Sn# [phone] Creatinine mass conc 3.850 0.510-0.950 MG/DL High 019 [facility] (00 000) Comment: Result Comment: Patients rec eiving either N-Acetylcysteine (NAC) orMetamizole prior to venipu ncture, may have falsely depressedresults. Performed By: #### L500.0140 0, L500.10590, L550.24754 ####[facility] FJQOPNFEDU4199 [place], [place] [address]Gz# [phone] Globulin mass conc (S) 3.3 2.2-4.2 GM/DL Normal 019 [facility] (00 000) Comment: Performed By: #### L500.0140 0, L500.65227, L550.95296 ####[facility] QUILRWMTAS3520 [place], [place] [address]Jt# [phone] Glucose mass conc 133 70-100 MG/DL High 08-31-2018 [facility] (19797) Comment: Result Comment: 70-100- Norm al Fasting; 100-125 Impaired Fasting; greaterthan 126 on more than one result- Diabetes. ADA guidelines.Results may be falsely elevated afte r the administration ofSulfapyridine.Results may be falsely depressed after t he administration ofSulfasalazine. Performed By: #### L500.0140 0, L500.12586, L550.29641 ####[facility] PEZUYNOJHI6064 [place], [place] [address]He# [phone] Potassium molar conc 7.0 3.5-5.1 MMOL/L Critically high [facility] [place] (31018) Comment: Result Comment: Slight Hemol ysis, Result may be falsely increased. CriticalResult(s) Called at: 18:00:05 on 08/31/2018 by: milady hinson and read back by: TAE Roger Performed By: #### L500.0140 0, L500.56483, L550.12033 ####[facility] DAWCEIELQB5063 [place], [place] [address]Mu# [phone] Protein mass conc 6.2 6.0-8.5 GM/DL Normal 08-31-2018 [facility] (77242) Comment: Performed By: #### L500.0140 0, L500.43760, L550.29355 ####[facility] FQYDOYEEGE8969 [place], [place] [address]Eu# [phone] SGOT (AST) 102 8-34 U/L High 08-31-2018 [facility] (11608) Comment: Result Comment: Slight Hemol ysis, Result may be falsely increased.RESULTS MAY BE FALSELY DEPRESSED AFT ER THE ADMINISTRATION OFSULFASALAZINE AND/OR SULFAPYRIDINE. Performed By: #### L500.0140 0, L500.25432, L550.03222 ####[facility] TQWKDNFTFY3786 [place], [place] [address]Qy# [phone] Sodium molar conc 129 136-145 MMOL/L Low 08-31-2018 [facility] (33465) Comment: Performed By: #### L500.0140 0, L500.86244, L550.01233 ####[facility] RKQSDHKHDR7462 [place], [place] [address]Ll# [phone] Urea nitrogen mass conc 62 7-26 MG/DL High 2018 [facility] (83648) Comment: Performed By: #### L500.0140 0, L500.13374, L550.98839 ####[facility] MVJZUKLZWY5625 [place], [place] [address]Lu# [phone] Urea nitrogen/Creatinine mass 16 15-24 mg/mg Normal 08-31-2018 [facility] ratio [place] (00 000) Comment: Performed By: #### L500.0140 0, L500.48509, L550.42959 ####[facility] HUTGJUKBLH4091 [place], [place] [address]Tf# [phone] cbc w/diff on 08-31 BASO ABS 0.10 0-0.2 K/CU MM Normal 08-31-2018 [facility] [place] (25291) Comment: Performed By: #### L200.0005 0 ####[facility] DGLIRUPYJI1680 [place], [place] [address]Xx# Basophils/100 WBC (Bld) 0.3 0-2 % Normal 2018 [facility] [place] (48932) Comment: Performed By: #### L200.0005 0 ####[facility] GZBUITXVHY1704[address] [place] [address]Tx# [phone] EOS ABS 0.30 0-0.5 K/CU MM Normal 08-31-2018 [facility] [place] (90069) Comment: Performed By: #### L200.0005 0 ####[address] [address]Tv# Eosinophils/100 WBC (Bld) 1.4 0-5 % Normal 08-19 [facility] (64081) Comment: Performed By: #### L200.0005 0 ####[facility] FDCHIUSDYT412[address] [place] [address]Gz# [phone] Erythrocyte distribution width 16.5 11-14.5 % High 08-31-2018 [facility] Ratio (RBC) [place] ( [address]42) Comment: Performed By: #### L200.0005 0 ####[facility] [id number] [place] [address]Li# Hematocrit Volume Fraction 35.7 35.0-47.0 % Normal [facility] ([facility]) [place] (00 000) Comment: Performed By: #### L200.0005 0 ####[facility] TVNBYCXODD7967[address] [place] [address]Al# [phone] Hemoglobin mass conc (Bld) 11.1 11.5-15.5 G/DL Low [facility] [place] (00 000) Comment: Performed By: #### L200.0005 0 ####[facility] [id number] [place] [address]Cw# IMMATR GRAN ABS 0.10 Less than 2 K/CU MM Normal 08-31-2018 [facility] ( 000) Comment: Performed By: #### L200.0005 0 ####[address] [address]Bx# IMMATURE GRAN % 0.6 Less than 2 % Normal 08-31-2018 [facility] (47637) Comment: Performed By: #### L200.0005 0 ####[address] [address]Je# [phone] Lymphocytes #/vol (Bld) 4.10 0.9-4.4 K/CU MM Normal 2018 [facility] (00 000) Comment: Performed By: #### L200.0005 0 ####[address] [address]Nw# [phone] Lymphocytes/100 WBC (Bld) 18.5 20-40 % Low 08-19 [facility] (33528) Comment: Performed By: #### L200.0005 0 ####[address] [address]Up# [phone] MCHC mass conc (RBC) 31.1 32.0-36.0 GM/DL Low 9 [facility] (46023) Comment: Performed By: #### L200.0005 0 ####[address] [address]Wd# MCV Entitic volume (RBC) 83.6 80.0-99.0 fl Normal 08-31 [facility] (00 000) Comment: Performed By: #### L200.0005 0 ####[address] [address]Hn# [phone] MONO ABS 2.20 0.1-1.1 K/CU MM High 08-31-2018 [facility] (35058) Comment: Performed By: #### L200.0005 0 ####[facility] ESSCDJOIBN0454 [place], [place] [address]Cw# [phone] Monocytes/100 WBC (Bld) 9.8 2-10 % Normal [address] [facility] ([address]14[facility] Comment: Performed By: #### L200.0005 0 ####[facility] HFLBXWTHTC6235 [place], [place] [address]Um# NEUTROPHIL ABS 15.50 2.0-8.3 K/CU MM High 08-31-2018 [facility] (28947) Comment: Performed By: #### L200.0005 0 ####[facility] [id number] [place] [address]Vl# Neutrophils/100 WBC (Bld) 69.4 45-75 % Normal 08-19 [facility] (75199) Comment: Performed By: #### L200.0005 0 ####[facility] [id number] [place] [address]Nd# [phone] Nucleated RBC/100 WBC 0.0 Less than 1 % Normal 2018 [facility] Ratio (Bld) [place] ( [address]) Comment: Performed By: #### L200.0005 0 ####[facility] ALPDWUDZDD3414[address] [place] [address]Zw# Platelet mean volume 11.0 9.4-12.4 fL Normal 9 [facility] Entitic volume (Bld) [place] ([address]01) Comment: Performed By: #### L200.0005 0 ####[facility] LBTYAZIVMJ047[address] [place] [address]Vh# [phone] Platelets #/vol (Bld) 401 150-450 K/CU MM Normal 08-31-19 [facility] (00 000) Comment: Performed By: #### L200.0005 0 ####[facility] [id number] [place] [address]Nu# [phone] RBC #/vol (Bld) 4.27 3.90-5.30 M/CU MM Normal 08-31-2018 [facility] (16131) Comment: Performed By: #### L200.0005 0 ####[facility] UOLGICFFGE4380 [place], [place] [address]Wo# WBC #/vol (Bld) 22.3 4.5-11.0 K/CUMM High 08-31-2018 [facility] (82964) Comment: Performed By: #### L200.0005 0 ####[facility] ZAPAIOXACO2683 [place], [place] [address]Jb# progress on 2018-07 Protein HNO ID: [id number]: Ayana ([facility]) ShannonService: Normal 07-23-2018 [facility] (none)Author Type: Nurse PractitionerType: Progress Clinic conc NotesFiled: 07/23/2018 1:20 PMNote Text:Crystal Cramer is a 62 year old female. Patient presents ([address]) with:New PatientPMH: DM, Fibromyalgia, HTN, HyperlipidemiaCrystal is [...] FIRST FOR MY DOCUMENTATION TO PROVIDE CARE, HELPINSULuxury Fashion Trade AND COLLEAGUES TO HAVE NEUROLOGICAL CONTEXT OF [...] BPMetformin Other: See Comments Not Specified Side Effect/Jqhnmixiitw74/10/2017 Past Updates...MigrainesPAST MEDICAL HISTORY:ACTIVE PROBLEM LISTTuberculosis of Lung, Nodular, Confirmation UnspecifiedDiarrheaNausea AND VomitingPAST SURGICAL HISTORYProcedure Laterality Date- APPENDECTOMY 1973[facility] Colonoscopy- COLONOSCOPY W/BX 05/27/07- [...] motor and sensory exam is symmetricEqual v1,V2, Q1Ldvpud is in midline. No tongue fasciculation.Palate is upgoing bilaterallySCM and trapezius are full.Shoulder shrug intact?Motor Exam:?Upper extremity motor exam is 5/5 in deltoid, 5/5 triceps 5/5biceps, 5/5wrist extension, and 5/5 hand research and development technician. Finger extensor 5/5. Finger flexor5/5. Pronation and [...] Babinski). No clonus of ankles.?Coordination:Finger-to- nose-finger and tcqs-rx-dhxy intact bilaterally. No ataxia ofarms. No limb [...] visit, with more than 50% of the muhpzmtbb-xq-hzci time of the visit in counseling / coordination of care.ACTIVE PROBLEM LISTTuberculosis of Lung, Nodular, Confirmation UnspecifiedDiarrheaNausea AND VomitingNo orders found for this visit on 07/23/18.Ayana Jamison MSN, BEER MERCHANT, SUPERINTENDENT OPERATING-C1. This office note has been dictated and [...] 07-23-2018 Shauna and (NEN) --------BELACRYSTAL Tricia Arriola ([id number]) 1955 FDat e Time Provider Stavvsisge68/5/18 12:45 PM AYANA JAMISON (JOSEP) ANGELINA Fiore During your visit today, we recorded the following information about you: Pulse Respiration Blood (75211) pressure Weight 69/minute 18 /minute 104/46 129.3 [...] Date- APPENDECTOMY 1973- COLONOSCOP W/ OR W/O [facility] SPEC 06/19/2013 Colonoscopy- COLONOSCOPY W/B X [...] motor and sensory exam is symmetricEqual v1,V2, U7Trkhwb is in midline. No tongue fascic ulation.Palate is upgoing bilaterallySCM and trapezius are full.Shoulder shrug intact?Motor Exam:?Upp er extremity motor exam is 5/5 in deltoid, 5/5 triceps 5/5biceps, 5/5 wristextension, and 5/5 hand research and development technician. Finger extensor 5/5. Finger flexor 5/5.Pronation and [...] Babinski). No clonus of ankles.?Coordination:Finger-to- nose-finger and auej-sx-gwma intact bilatera lly. No ataxia of arms.No [...] of d iabetes. In review of her H2Zbykwqp, she has been diabetic for some time [...] m ore than 50% of the total edev-qc-rspsbpeh of the visit in counseling / coordination of care.ACTIVE PROBLEM LISTTuberculosis of Lung, Nodular, Confirmation UnspecifiedDiarrheaNausea AN D VomitingNo orders found for this visit on 07/23/18.Ayana Jamison MSN, BEER MERCHANT, SUPERINTENDENT OPERATING-C1. This office no te has been dictated [...] MONTELUKAST 10 MG TABLET >> Ayana Jamison APRN.SAFETY DIRECTOR 07/23/2018 12:17 PM >> AYANA JAMISON [...] 05/23/2018 Disc: Discontinued by PatientEncounter Number: [id number] Status:Closed by AYANA JAMISON on 07/23/18 progress on 2018-05 Protein mass HNO ID: [id number]: Carlyn arriola 05-23-2018 [facility] conc (Golf Cart Mechanic) FulkService: (none)Author Adebayo Type: Nurse PractitionerType: ([id number]) Progress NotesFiled: 05/23/2018 12:48 PMNote Text:HPI Crystal [...] complaint and [facility], recommend patient be seen at nearest ED,refused Squad friend present will transport, report called to JOSEP Parra on 2018-05-23 CNCHRISTIE Office Visit Normal 05-23-2018 [place] and (UCWSTR) --------BELACRYSTAL Tricia Arriola ([id number]) 1955 FDat e Time Provider Irwgcgxveq18/5/18 12:15 PM [facility] During Clev eland your visit today, [...] friendpresent will transport , report called to [facility].Carlyn Wu, CNPReferring Provider: SELF [200]Allergies As of Date: 05/23/2018 Noted Allergy Reaction BACTRIM (SULFAMETHOXAZOLE-TRIMETH* 4 - HivesTORADOL (KETOROLAC) 03/22/2006 14 - Other: See Comments Comments: Increase BPCIPROFL OXACIN 06/10/2013 2 - RashFLEXERIL (CYCLOBENZAPRINE) 06/10/2013 2 - RashMETFORMIN 06/28/2017 14 - Other: See Comments Comments: MigrainesDate Reviewed: 05/23/2018Reviewed by: Carole NguyenSelect [facility]) KENROY Henriquez - Fully AssessedReason for Visit: Fall [218] Cmt: pain in left side ribs, fell yesterday into [place] counter, trouble breathing todayPrimary Visit Diagnosis:Borderline low [...] by mouth four t* Patient not ta iflippo: Reported on 05/23/2018 PROMETHAZINE 25 MG TAB [...] AND vomiting [R11.2] INVALID FOR*Encounte r Number: [id number] Status:Closed by CARLYN WU CNP on 05/23/18 nino creatinine on 2017-12-31 Creatinine mass conc 1.2 0.7-1.4 mg/dL Normal 8 [facility] (09855) progress on 2017-12 Protein mass HNO ID: [id number]: Carole Kumar rmal 12-31-2017 [facility] Hieu Bashir CtService: (none)Author Clinic Type: (none)Type: Progress [place] NotesFiled: 12/31/2017 12:48 PMNote (40496) Text: Radiology Service Progress NotePATIENT NAME: Crystal OrtizsMRN: [id number] OF SERVICE: December 31, 2017TIME: 12:48 PMPATIENT IDENTITY VERIFICATION COMPLETED USING TWO (2) METHODS: Patientconfirmed name verbally and Date of .PATIENT GENDER DATA: Female. status: : NoBreastfeeding status: NO.PATIENT RELEVANT IMPLANT DATA REVIEWED: YesCONTRAST INDUCED NEPHROPATHY RISK FACTORS: Patient age > 60 yearsCREATININE:CreatinineDate Value Ref Range Dlzggf8104/28/2015 0.87 0.51 - 0.95 mg/dL Final04/27/2015 0.86 [...] BY: Carole Bashir CtMay 2017 12:48 PM katrik screening w ramo on 2017-12-31 KARTIK SCREENING W * * *Final Report* * *DATE OF Norm al 12-31-2017 [place] RAMO EXAM: Dec 31 2017 9:51AM [facility] 0582 - [facility] SCREENING W RAMO / Fiore (07940) REASON: Other disorders of nervous system * * * * Physician Interpretation * * * *RESULT: #[id number] - KARTIK SCREENING W TOMOBILATERAL DIGITAL SCREENING MAMMOGRAM TOMOSYNTHESIS WITH CAD: 12/31/2017HISTORY: Other Disorders Of Nervous System\ Screening Mammogram - patient reports NO breast symptoms /Patient has signed release for outside images\[facility].RESULT:TECHNIQUE: The study was acquired using full [...] physician.Maral Kennedy M.D.jr,as/penrad:12/31/2017 14:00:45Imaging Technologist: Janneth BLACKMAN)(Sally), [facility] Centerletter sent: Normal over 40Mammogram BI-RADS: 1 NegativeTranscriptionist: MaylinTranscribe Date/Time: Dec 31 2017 9:52ADictated by: FABBY KENNEDY MDThis examination was interpreted and the report reviewed and electronically signed by: MARAL HALLMAN MD on Dec 31 2017 2:00PM [id number] ct chest w ivcon on 2017-12-31 CT CHEST W * * *Final Report* * *DATE OF EXAM: Catrachita landry 12-31-2017 [facility] IVCON Dec 31 2017 12:22PM [facility] 05[facility] - [place] CHEST W IVCON / [id number] REASON: Other disorders of nervous system * [...] represent herniated intra-abdominal fat or a lipomatous lesion.Roll Filler: ABRAM Transcribe Date/Time: Dec 31 2017 2:47PDictated by : VERONICA IBARRA MDThis examination was interpreted and the report reviewed and electronically signed by: VERONICA IBARRA MD on Dec 31 2017 3:07PM [id number] ct abd/pel w ivcon on 2017-12-31 CT ABD/PEL * * *Final Report* * *DATE OF EXAM: December12-31-2017 [facility] IVCON 2017 12:22PM [facility] 0530 - CT ABD/PEL W [facility] IVCON / [place] REASON: Other disorders of nervous (81682) system * * * * Physician Interpretation [...] may be contributing to the patient's symptoms. Roll Filler: ABRAM Transcribe Date/Time: Dec 31 2017 1:21PDictated by : PELON GARRETT MDThis examination was interpreted and the report reviewed and electronically signed by: PELON GARRETT MD on Dec 31 2017 1:32PM [id number] cnco on 2017-12-31 [facility] HNO ID: [id number]: Normal 12-17 [facility] Mammography CoordinatorService: [place] ([id number]) (none)Author Type: PhysicianType: LetterFiled: 01/01/2018 11:32 PMNote Text:December 31, 2017 PID: [id number] [place], [place] [address]Riwq Ms. Cramer,We are pleased to inform you that the results of your recent breastimaging exam on 12/31/2017 are normal. Early detection of cancer is veryimportant. We also understand recommendations regarding breast cancerscreening are controversial. Please discuss with your primary careprovider which strategy is best for you and whether a mammogram is rightfor you.[facility] imaging studies and [facility] and are available for yourcontinuing care.Thank you for allowing us to help in meeting your health care needs.Sincerely,Dr. HallmanInterprejania RadiologistWooster Specialty Center (Normal over 40) progress on 2017-12 Protein mass HNO ID: [id number]: Mukul payne 12-18-2017 [place] conc ClineService: (none)Author Type: Clinic PhysicianType: Progress NotesFiled: Pawling 12/18/2017 10:45 AMNote Text:FOLLOW UP ([id number]) VISITCHIEF COMPLAINTPatient presents with:Established Patient: nausea, constipationMs. [...] Normal 12-18-2017 [place] and (GASTMN) --------CRYSTAL CRAMER ([id number]) 1955 FDat e Time Provider Department12/18/17 10:10 AM MUKUL STEVEN During Clev eland your visit today, we recorde d the following information about you: Temperature Pulse Blood pressure (21322) Weight 98.3 degrees 79/minut e 139/69 120.8 [...] W IVCONMukul Steven 12/18/2017Referring Provider: YOU PARKS [[id number]]Allergies As of Date: 12/18/2017 Noted Allergy ReactionBACTRIM [...] synd danica [G98.8]Order(s):CREATININE BLD [SQCRET] Order #: [id number] FUTURE KARTIK SCREENING [[id number]] Orde r #: [id number] FUTURE CT ABD/PEL W IVCON [[id number]] Order #: [id number] FUTURE CT CHEST W IVCON [127 0700] Order #: [id number] FUTURE iv contrast (radiology procedure)CT Chest ABD/PEL-Inject, [...] nursing protocol in the CT contrast administration [facility].Disp: 1 EachRfl: 0 enteric contrast (radiology [...] as designated per enteric contrast guidelinesEncounter Number: [id number] Status:Closed by MUKUL STEVEN DO on 12/18/17 progress on 2017-10 Protein mass HNO ID: [id number]: Cele (Rn) Normal 10-22-2017 [place]ling leno Vargas, RNService: (none)Author Type: Clinic Registered NurseType: Progress Pawling NotesFiled: 10/22/2017 2:24 PMNote ([id number]) Text:SmartPill Test Report - [id number] Test start date: 10/11/2017 9:48 AM Interpretation date: 10/22/2017 Ordering physician: Radha Aaron Information Name: Crystal Cramer ID: [id number] date: 1955 Height ft. in.: 5' 6 [...] Normal 10-22-2017 Honey hammer (GASTMN) --------CRYSTAL CRAMER ([id number]) 1955 [facility] e Time Provider Department10/22/17 CELE VARGAS (RN) GASTMN During your [facility] visit today, we recorded the following information about you:Cele Vargas RN, RN 10/22/2017 2:24 PM ([id number]) [facility]igned[facility] Test Report - [id number] Test start date: 10/11/2017 9:48 AM Interpretation date: 8 Ordering physician: Radha Aaron Information Name: Crystal Cramer ID: [id number] [facility] h date: 1955 Height ft. in.: [...] FOR*Follow-up and Disposition History RecordedEncounter Bushra mber: [id number] Status:Closed by CELE VARGAS on 10/22/17 cnpn on 2017-10-22 [facility] Normal 10-22-2017 Adebayo (JOSE CARLOS) --------CRYSTAL CRAMER ([id number]) 1955 FDat e Time Provider Department10/22/17 MUKUL STEVENNC During your visit Juwan monzon today, we recorded the aldo gooden information about you:Manuel Meza, RN, RN 10/22/2017 5:10 PM ([id number]) SignedPatient is calling Dr. Steven's office to [...] Explained that appeal letter was faxed to [facility] regarding he r IVIG therapy. Offered [...] By: Manuel Meza RN In Department: [facility]South [facility] Centerpradeep As of Date: 10/22/2017 Noted Allergy [...] on 2017-09 Protein mass conc HNO ID: [id number]: Normal 10-11-2017 [facility] Cele (Rn) Azael Vargas ([id number]) RNService: (none)Author Type: Registered NurseType: Progress NotesFiled: 10/11/2017 10:14 AMNote Text:Referring MD: ?Teodoro Aaron: ?gastroparesisDate of SmartPill Procedure: ?10/11/2017 ?SmartPill ingested withoutdifficulty at 10:00am. ?Discharge instructions completed and given topatient.Return of Equipment: ?Micah Vargas RN Capsule Endoscopy Nurse cnpn on 2017-10-08 CNPN Telephone Normal 10-08-2017 [place] (GASTMN) --------CRYSTAL CRAMER [facility] ([id number]) 1955 FDat e Time Provider Department10/08/17 MUKUL STEVEN GASTNC During your [place]ling visit today, we recorded the following information about you:Manuel Meza RN, RN 10/08/2017 4:16 PM ([id number]) SignedContacted [employer] [phone] (option 1 and then option 0) to obtain acopy of patient's denial letter for IVIG. They are to fax to the office today.Manuel Meza, RN, RN 10/08/2017 5:19 PM SignedReceived copy of deng arriola letter from [employer] 10/08/17 and forwarded toStacey at [facility].Allergies As of Date: 10/08/2017 Noted Allergy Reacti onBACTRIM (SULFAMETHOXAZOLE-TRIMETH* 4 - HivesCIPROFLOXACIN 06/10/2013 16 - UnknownFLEXERIL (CYCLOBENZAPRINE) 06/10/2013 16 - UnknownMETFORMIN 06/28/2017 14 - Other: See Comments Comments: MigrainesTORADOL (KETOROLAC) 03/22/2006band aids [Other] 05/27/2007Date Reviewed: 07/31/2017Reviewed by: Mukul Steven - Fully AssessedReason for Visit: Care Coordination [1548] Cmt: Gastroparesis Clinic: Ivig denial letter r [...] cnpn on 2017-09-12 CNPN Telephone Normal 09-12-2017 [place] (GASTMN) --------[facility]YSTAL CRAMER ([id number]) 1955 [facility] Department09/12/17 MUKUL STEVEN [facility] During your [place]awling visit today, we recorded the following information [...] Ta ke 100 mg by mouth once sctoty* VALSARTAN 80 MG TABLET Take 80 mg [...] Thyrotropin Qn 2.260 0.400-5.500 uU/mL Normal 07-31-2017 [facility] ([id number]) Comment: Performed By: #### CK, FT4, TSH, LD6, HBA1C, LACPYR, AAQTPL, GADCAB, CARNPL, PLTHY ####[facility] [address] [place], [place] [phone]#### CASRFX , LG1RFX, PARNEO #### [facility] [address] [address] [place], [place] [phone] progress on 2017-07 Protein mass HNO ID: [id number]: Manuel landry 07-31-2017 [facility] (Rn) LAURIE Mezaervice: Clinic (none)Author Type: Registered [place] NurseType: Progress NotesFiled: ([id number]) 07/31/2017 10:55 AMNote Text:Met with patient for [...] RN In Department:GASTROENTEROLOGY Protein mass HNO ID: [id number]: Rayne stone 07-31-2017 [place] leno GuilloryService: Clinic (none)Author Type: Azael morrison PsychologistType: Progress (12554) NotesFiled: 07/31/2017 10:40 AMNote Text:Behavioral MedicineDigestive Disease and Surgery InstituteName: Crystal Mallory#: [id number]: 07/31/17Time: [address]: Dr. Cruz for [...] Plasma Thymidine Det View results in Normal [facility] Scanned Documents link [place] ([id number]) when available. Comment: Performed By: #### CK, FT4, TSH, LD6, HBA1C, LACPYR, AAQTPL, GADCAB, CARNPL, PLTHY ####[facility] L [address] [place], [place] [phone]#### CASRFX , LG1RFX, PARNEO #### [facility] [address] [place], [place] [phone] paraneoplast autoabs on 2017-07-31 ACh Receptor Bind Ab 0.00 <=0.02 nmol/L Normal 7 [facility] ([id number]) Comment: Result Comment: (NOTE)------ ADDITIONAL INFORMATION --This test was developed and its performance characteristicsdetermined by [facility] in a manner consistent with CLIArequirements. This test has not been cleared or approved bythe U.S. Food and Drug Administration. Performed By: #### CK, FT4, TSH, LD6, HBA1C, LACPYR, AAQTPL, GADCAB, CARNPL, PLTHY ####[facility] [place], [place] [phone]#### CASRFX , LG1RFX, PARNEO #### [address] [phone] AChR Ganglionic Neur 0.00 <=0.02 nmol/L Normal 7 [facility] (89813) Comment: Result Comment: (NOTE)------ ADDITIONAL INFORMATION --This test was developed and its performance characteristicsdetermined by [facility] in a manner consistent with CLIArequirements. This test has not been cleared or approved bythe U.S. Food and Drug Administration. Performed By: #### CK, FT4, TSH, LD6, HBA1C, LACPYR, AAQTPL, GADCAB, CARNPL, PLTHY ####[facility] [place], [place] [phone]#### CASRFX , LG1RFX, PARNEO #### [facility] [place] [place], [place] [phone] Amphiphysin Ab, S Negative <1:240 Normal 07-31-2017 [facility] [place] [facility] ([id number]) Comment: Result Comment: (NOTE)------ ADDITIONAL INFORMATION --This test was developed and its performance characteristicsdetermined by [facility] in a manner consistent with CLIArequirements. This test has not been cleared or approved bythe U.S. Food and Drug Administration. Performed By: #### CK, FT4, TSH, LD6, HBA1C, LACPYR, AAQTPL, GADCAB, CARNPL, PLTHY ####[facility] [address] [place], [place] [phone]#### CASRFX , LG1RFX, PARNEO #### [address] [phone] ERINN 1, S Negative <1:240 Normal 07-31-2017 [facility] ([id number]) Comment: Performed By: #### CK, FT4, TSH, LD6, HBA1C, LACPYR, AAQTPL, GADCAB, CARNPL, PLTHY ####[facility] [address] [place], [place] [phone]#### CASRFX , LG1RFX, PARNEO #### [address] [phone] ERINN 2, S Negative <1:240 Normal 07-31-2017 [facility] (11976) Comment: Result Comment: (NOTE)------ ADDITIONAL INFORMATION --This test was developed and its performance characteristicsdetermined by [facility] in a manner consistent with CLIArequirements. This test has not been cleared or approved bythe U.S. Food and Drug Administration. Performed By: #### CK, FT4, TSH, LD6, HBA1C, LACPYR, AAQTPL, GADCAB, CARNPL, PLTHY ####[facility] [place], [place] [phone]#### CASRFX , LG1RFX, PARNEO #### [facility] [place] [place], [place] [phone] ERINN 3, S Negative <1:240 Normal 07-31-2017 [facility] (84247) Comment: Result Comment: (NOTE)------ ADDITIONAL INFORMATION --This test was developed and its performance characteristicsdetermined by [facility] in a manner consistent with CLIArequirements. This test has not been cleared or approved bythe U.S. Food and Drug Administration. Performed By: #### CK, FT4, TSH, LD6, HBA1C, LACPYR, AAQTPL, GADCAB, CARNPL, PLTHY ####[place] [address] [place], [place] [phone]#### CASRFX , LG1RFX, PARNEO #### [address] [phone] Anti-glial Nuc Ab 1 Negative <1:240 Normal 07-31-2017 [facility] (81542) Comment: Result Comment: (NOTE)------ ADDITIONAL INFORMATION --This test was developed and its performance characteristicsdetermined by [facility] in a manner consistent with CLIArequirements. This test has not been cleared or approved bythe U.S. Food and Drug Administration. Performed By: #### CK, FT4, TSH, LD6, HBA1C, LACPYR, AAQTPL, GADCAB, CARNPL, PLTHY ####[facility] [place], [place] [phone]#### CASRFX , LG1RFX, PARNEO #### [facility] [place] [place], [place] [phone] Ca Ch Bind Ab,N Type 0.00 <=0.03 nmol/L Normal [facility] (79827) Comment: Result Comment: (NOTE)------ ADDITIONAL INFORMATION --This test was developed and its performance characteristicsdetermined by [facility] in a manner consistent with CLIArequirements. This test has not been cleared or approved bythe U.S. Food and Drug Administration. Performed By: #### CK, FT4, TSH, LD6, HBA1C, LACPYR, AAQTPL, GADCAB, CARNPL, PLTHY ####[facility] [place], [place] [phone]#### CASRFX , LG1RFX, PARNEO #### [address] [phone] Ca Chn Bind Ab, P/Q 0.00 <=0.02 nmol/L Normal 07-31-2017 [facility] (26128) Comment: Result Comment: (NOTE)------ ADDITIONAL INFORMATION --This test was developed and its performance characteristicsdetermined by [facility] in a manner consistent with CLIArequirements. This test has not been cleared or approved bythe U.S. Food and Drug Administration. Performed By: #### CK, FT4, TSH, LD6, HBA1C, LACPYR, AAQTPL, GADCAB, CARNPL, PLTHY ####[facility] [place], [place] [phone]#### CASRFX , LG1RFX, PARNEO #### [facility] [place] [place], [place] [phone] CRMP 5 IgG, S Negative <1:240 Normal 07-31-2017 [facility] (48757) Comment: Result Comment: (NOTE)------ ADDITIONAL INFORMATION --This test was developed and its performance characteristicsdetermined by [facility] in a manner consistent with CLVal[facility] Hospitalequire[facility]. This test has not been cleared or approved bythe U.S. Food and Drug Administration. Performed By: #### CK, FT4, TSH, LD6, HBA1C, LACPYR, AAQTPL, GADCAB, CARNPL, PLTHY ####[facility] [address] [place], [place] [phone]#### CASRFX , LG1RFX, PARNEO #### [facility] [place] [place], [place] [phone] Interpretive Comment (NOTE) Normal 7 [facility] (14547) Comment: Result Comment: Reflexed maria del carmen t(s) performed per testing algorithm.*The following antibody was ident ified: voltage gatedpotassium channel (VGKC-complex); negative for leucine-rich, glioma inactivated 1 protein-IgG (LGI1) andContactin-associat ed cjtivqh-2-RoI (CASPR2). * The resultsof a positive VGKC-complex [...] Rasheed CJ. Expa nded phenotypes and outcomes LGI1/CASPR2-IgG positive pat ients. Annals of Sfqbensxp7378; 82:79-92. * Doyle B, Jeremie M, Karla [...] LGI1 and Caspr2 antibodies.N eurology, 2016; 86; 7458-4502. Performed By: #### CK, FT4, TSH, LD6, HBA1C, LACPYR, AAQTPL, GADCAB, CARNPL, PLTHY ####[facility] [address] [place], [place] [phone]#### CASRFX , LG1RFX, PARNEO #### [address] [phone] Neur V-G K+ Chann Ab 0.11 <=0.02 nmol/L High 7 [facility] (35782) Comment: Result Comment: (NOTE)------ ADDITIONAL INFORMATION --This test was developed and its performance characteristicsdetermined by [facility] in a manner consistent with CLIArequirements. This test has not been cleared or approved bythe U.S. Food and Drug Administration. Performed By: #### CK, FT4, TSH, LD6, HBA1C, LACPYR, AAQTPL, GADCAB, CARNPL, PLTHY ####[facility] [address] [place], [place] [phone]#### CASRFX , LG1RFX, PARNEO #### [facility] [place] [place], [place] [phone] PARNEO Reflex Tests None. Normal 07-31-2017 [facility] () Comment: Result Comment: (NOTE)------ ADDITIONAL INFORMATION --This test was developed and its performance characteristicsdetermined by [facility] in a manner consistent with CLIArequirements. This test has not been cleared or approved bythe U.S. Food and Drug Administration. Performed By: #### CK, FT4, TSH, LD6, HBA1C, LACPYR, AAQTPL, GADCAB, CARNPL, PLTHY ####[facility] [address] [place], [place] [phone]#### CASRFX , LG1RFX, PARNEO #### [address] [phone] CASING MIXER 1, S Negative <1:240 Normal 07-31-2017 [facility] (17803) Comment: Result Comment: (NOTE)------ ADDITIONAL INFORMATION --This test was developed and its performance characteristicsdetermined by [facility] in a manner consistent with CLIArequirements. This test has not been cleared or approved bythe U.S. Food and Drug Administration. Performed By: #### CK, FT4, TSH, LD6, HBA1C, LACPYR, AAQTPL, GADCAB, CARNPL, PLTHY ####[facility] [address] [place], [place] [phone]#### CASRFX , LG1RFX, PARNEO #### [facility] [place] [place], [place] [phone] CASING MIXER 2, S Negative <1:240 Normal 07-31-2017 [facility] (46519) Comment: Result Comment: (NOTE)------ ADDITIONAL INFORMATION --This test was developed and its performance characteristicsdetermined by [facility] in a manner consistent with CLIArequirements. This test has not been cleared or approved bythe U.S. Food and Drug Administration. Performed By: #### CK, FT4, TSH, LD6, HBA1C, LACPYR, AAQTPL, GADCAB, CARNPL, PLTHY ####[facility] [address] [place], [place] [phone]#### CASRFX , LG1RFX, PARNEO #### [facility] [place] [place], [place] [phone] CASING MIXER Tr, S Negative <1:240 Normal 07-31-2017 [facility] (84931) Comment: Result Comment: (NOTE)------ ADDITIONAL INFORMATION --This test was developed and its performance characteristicsdetermined by [facility] in a manner consistent with CLIArequirements. This test has not been cleared or approved bythe U.S. Food and Drug Administration. Performed By: #### CK, FT4, TSH, LD6, HBA1C, LACPYR, AAQTPL, GADCAB, CARNPL, PLTHY ####[facility] [address] [place], [place] [phone]#### CASRFX , LG1RFX, PARNEO #### [facility] [place] [place], [place] [phone] Striational Ab, S Negative <1:120 Normal 07-31-2017 C [facility] (26067) Comment: Result Comment: (NOTE)------ ADDITIONAL INFORMATION --This test was developed and its performance characteristicsdetermined by [facility] in a manner consistent with CLIArequirements. This test has not been cleared or approved bythe U.S. Food and Drug Administration. Performed By: #### CK, FT4, TSH, LD6, HBA1C, LACPYR, AAQTPL, GADCAB, CARNPL, PLTHY ####[facility] [address] [place], [place] [phone]#### CASRFX , LG1RFX, PARNEO #### [facility] [place] [place], [place] [phone] lgi1-igg reflex on 2017-07-31 LGI1-IGG CBA SERUM Negative Negative Normal 07-31-2017 [facility] (26728) Comment: Result Comment: (NOTE)------ ADDITIONAL INFORMATION --This test was developed and its performance characteristicsdetermined by [facility] in a manner consistent with CLIArequirements. This test has not been cleared or approved bythe U.S. Food and Drug Administration. Performed By: #### CK, FT4, TSH, LD6, HBA1C, LACPYR, AAQTPL, GADCAB, CARNPL, PLTHY ####[facility] [address] [place], [place] [phone]#### CASRFX , LG1RFX, PARNEO #### [facility] [place] [place], [place] [phone] ld on 2017-07-31 LD 241 135-214 U/L High 07-31-2017 [facility] (69195) Comment: Performed By: #### CK, FT4, TSH, LD6, HBA1C, LACPYR, AAQTPL, GADCAB, CARNPL, PLTHY ####[facility] [place], [place] [phone]#### CASRFX , LG1RFX, PARNEO #### [facility] [place] [place], [place] [phone] lactate/pyruvate on 2017-07-31 Lactate molar conc 2.1 0.5-2.2 mmol/L Normal 07-31-2017 [facility] (28822) Comment: Performed By: #### CK, FT4, TSH, LD6, HBA1C, LACPYR, AAQTPL, GADCAB, CARNPL, PLTHY ####[facility] [place], [place] [phone]#### CASRFX , LG1RFX, PARNEO #### [facility] [place] [place], [place] [phone] Pyruvate 0.15 0.03-0.08 mmol/L High 07-31-2017 [facility] (09656) Comment: Result Comment: Specimen was not treated within the desired 30 minute time. Pyruvate result may be false ly decreased and lactate result may be falsely elevated. Performed By: #### CK, FT4, TSH, LD6, HBA1C, LACPYR, AAQTPL, GADCAB, CARNPL, PLTHY ####[facility] [place], [place] [phone]#### CASRFX , LG1RFX, PARNEO #### [facility] [place] [place], [place] [phone] hemoglobin a1c on Glucose mass conc >240 mg/dL Normal 07-31-2017 [facility] [place] [facility] (35369) Comment: Result Comment: eAG: (Estima patrick average glucose) is a calculated value from HgbA1c and is inside sales account representative of the average blood glucose level in the last 2-3 month period. Performed By: #### CK, FT4, TSH, LD6, HBA1C, LACPYR, AAQTPL, GADCAB, CARNPL, PLTHY ####[facility] [place], [place] [phone]#### CASRFX , LG1RFX, PARNEO #### [facility] [place] [place], [place] [phone] Hemoglobin A1c/Hemoglobin.total 10.7 4.3-5.6 % High 07-31-2017 [facility] mass fraction (Bld) [place] ([id number]) Comment: Result Comment: [place] [employer] betes Association guidelines indicate that patients with HgbA1c in the range 5.7-6.4% are at increased risk for development of diabetes, and intervention by lifestyle modification may be beneficial. HgbA1c greater o r equal to 6.5% is considered diagnostic of diabetes. Performed By: #### CK, FT4, TSH, LD6, HBA1C, LACPYR, AAQTPL, GADCAB, CARNPL, PLTHY ####[facility] [place], [place] [phone]#### CASRFX , LG1RFX, PARNEO #### [facility] [place] [place], [place] [phone] glutamic ac decar ab on 2017-07-31 Glutamic Ac Decar Ab <5.0 <5.0 Normal 7 [facility] (28312) Comment: Performed By: #### CK, FT4, TSH, LD6, HBA1C, LACPYR, AAQTPL, GADCAB, CARNPL, PLTHY ####[facility] [place], [place] [phone]#### CASRFX , LG1RFX, PARNEO #### [facility] [place] [place], [place] [phone] free t4 on T4 free mass conc 1.2 0.9-1.7 ng/dL Normal 07-31-2017 [facility] [place] [facility] (92311) Comment: Performed By: #### CK, FT4, TSH, LD6, HBA1C, LACPYR, AAQTPL, GADCAB, CARNPL, PLTHY ####[facility] L [address] [place], [place] [phone]#### CASRFX , LG1RFX, PARNEO #### [facility] [place] [phone] cnov on 2017-07-31 CNOV Office Visit Normal 07-31-2017 [place] and (GASTMN) --------[facility] ([id number]) 1955 FDat e Time Provider Ukgmrvtpse24/13/17 10:00 AM MUKUL STEVEN GASTMN During Clev and your visit today, we recorde d the following information about you: Temperature Pulse Blood pressure (64018) Weight 98.6 degrees 68/minut e 175/87 107 kg Height 1.676 mMsaul Steven DO 07/31/2017 10:10 AM SignedGASTROPARESIS CONSULTP [facility] You Parks for [...] mg 2x per day (taking for 2years); [place] 4x per day (20 years). Diet: eats [...] mg 2x per day(taking for 2 years); [place] 4x per day (20 years)Drug use- History or current drug use (Marijuana, Cocaine, Heroine , etc...) NoEating Disorders- Does the patient have a history of eating disorders NoPsychiatric Diso rders- Does the patient have a history of psychiatric disorders including PTSD: NoNutrition- Has the p atient met with a office machine inspector for diet recommendations withGastroparesis? No - Jejunostomy [...] Cramer Age [age] year old MRN [id number] ConsultTest Date Completed ResultsLabsEGD [facility] Findings:The examined [...] .?IMPRESSION:Markedly delayed solid gastric emptying.Gastric Emptying Study [facility] Findings:Initially static images were obtained after the [...] the end of 3 hours.XR Upper GI [facility] Impression:1. Findings described above con sistent with gastritis and duodenitis withmultiple small superficial ulcerations and mucosal fold thickening. No largeulcers or masses are identified.2. Multiple spontaneous episodes of GE r eflux to the level above the clavicles.There also are tertiary contractions consistent with presbyesophagus. Noevidence of esophageal ulceration or stricture is seen. Correlate clinically.3 . Chronic changes as described above.ConsultsGI [id number] Harvey Belcher, [facility] SUBJECTIVE: Crystal chen s last [...] HISTORYProcedure Laterality Date- COLONOSCOP W/ OR W/O [facility] SPEC 06/19/2013 Colonoscopy- COLONOSCOPY W/BX 05/27/07- [...] mg tabletMukul Steven DO2016Referring Provider: YOU PARKS [[id number]]Allergies As of Date: 07/31/2017 Noted Aller gy ReactionBACTRIM (SULFAMETHOXAZOLE- TRIMETH*07/31/2017 4 - HivesCIPROFLOXACIN 3 16 - UnknownFLEXERIL (CYCLOBENZAPRINE) 06/10/2013 16 - UnknownMETFORMIN 06/28/2017 14 - Other: See Azael gardiner Comments: MigrainesTORADOL (KETOROLAC) 03/22/2006band aids [Other] 05/27/2007Date Reviewed: Reviewed by: Mukul Steven - Fully AssessedReason for Visit: Consult [502] Cmt: Gastropar esisPrimary Visit Diagnosis:Gastroparesis [K31.84]Order(s):CK CREATINE KINASE [SQCK] Order #: [id number] FUTURE LD LACTATE DEHYDRO [SQLD6] Order #: [id number] FUTURE HGB A1C [MUTSH7P] Order #: [id number] FUTURE TSH BLD [SQTSH] Order #: [id number] FUTURE T4 FREE/FREE THYROX [SQFT4] Order #: [id number] FUTURE PYRUVATE+LACTATE BL [SQLACPYR] Order #: [id number] FUTURE AMINO ACID QUANT BLD [SQAAQTPL] Or batsheva #: [id number] FUTURE CARNITINE FREE/TOTAL, PLASMA [SQCARNPL] Order #: [id number] FUTURE PARANEOPLA ST AUTOABS [SQPARNEO] Order #: [id number] FUTURE GLUTAMIC AC DECARBOXYLASE AB [SQGADCAB] Order #: [id number] FUTURE PLASMA THYMIDINE DETERMINATION [SQPLTHY] Order #: [id number] FUTURE CAPSULE ENDOSCOPY SMA RT [9374198] Order #: [id number] FUTURE mirtazapine (REMERON) 15 mg tabletTake 1 [...] Status:Closed by MUKUL STEVEN DO on 10/01/16 [facility] Office Visit Normal 07-31-2017 Shauna colón (SVEN) --------CRYSTAL CRAMER [facility] ([id number]) 1955 [facility] e Time Provider Bqspzdpfmj64/13/17 9:00 AM RAYNE COOK During your visit today, we recorded the following information about you:Rayne Odom, PHD ([id number]) 07/31/2017 10:40 AM [facility] Crystal Mallory#: [id number]: 07/19 11/02Time: [address]Ref[address]: Dr. Cruz [...] benefitsof exercise.Rayne Odom, Ph.D.Referring Provider: MUKUL RUIZ [[id number]]Allergies As of Date: 07/31/2017 Noted Allergy ReactionBACTRIM [...] Skip nd (GASTMN) --------[facility]STAL CR[facility]ER [facility] ([id number]) 1955 FDat e Time Provider Dzksitzxwq80/13/17 10:30 AM NURSE PT ED KOBE GASTMN [...] RN In Department: GASTROENTEROLOGYReferring Pr ovider: HARVEY BLECHER [[id number]]Allergies As of Date: 07/31/2017 Noted Allergy ReactionBACTRI [...] act/vol 54 42-196 U/L Normal 07-31-2017 C [facility] (07414) Comment: Result Comment: Please note the updated, gender-specific reference range for this test (effective 016). Performed By: #### CK, FT4, TSH, LD6, HBA1C, LACPYR, AAQTPL, GADCAB, CARNPL, PLTHY ####[facility] L [address] [place] [place], [place] [phone]#### CASRFX , LG1RFX, PARNEO #### [facility] [address] [place], [place] [phone] caspr2-igg reflex o n 2017-07-31 CASPR2-IGG CBA SERUM Negative Negative Normal 7 [facility] (50756) Comment: Result Comment: (NOTE)------ ADDITIONAL INFORMATION --This test was developed and its performance characteristicsdetermined by [facility] in a manner consistent with CLIArequirements. This test has not been cleared or approved bythe U.S. Food and Drug Administration. Performed By: #### CK, FT4, TSH, LD6, HBA1C, LACPYR, AAQTPL, GADCAB, CARNPL, PLTHY ####[facility] [address] [place], [place] [phone]#### CASRFX , LG1RFX, PARNEO #### [facility] [address] [place], [place] [phone] carnitine fr/tot, pl on 2017-07-31 Carnitine Interp (NOTE) Normal 07-31-2017 [facility] (98706) Comment: Result Comment: This assay o f [...] characteristics determinedby the Pathology and Laboratory Medicine [place] at the [facility]. The U.S. Food and Drug Administration has not approved orcleared this test , however, FDA clearance or approval is not currentlyrequired for clinic al use. Performed By: #### CK, FT4, TSH, LD6, HBA1C, LACPYR, AAQTPL, GADCAB, CARNPL, PLTHY ####[facility] [address]sx[address], [place] [phone]#### CASRFX , LG1RFX, PARNEO #### [facility] [place], [place] [phone] Carnitine Review Reviewed by Mayo Collier 07-19 [facility] MD Kayode, PhD Marcell jang ([id number]) (04953) Comment: Performed By: #### CK, FT4, TSH, LD6, HBA1C, LACPYR, AAQTPL, GADCAB, CARNPL, PLTHY ####[facility] [address] [place], [place] [phone]#### CASRFX , LG1RFX, PARNEO #### [facility] [place] [place], [place] [phone] Free L-Carnitine 29 22-52 umol/L Normal 07-31-[address] [facility] (85304) Comment: Performed By: #### CK, FT4, TSH, LD6, HBA1C, LACPYR, AAQTPL, GADCAB, CARNPL, PLTHY ####[facility] [place], [place] [phone]#### CASRFX , LG1RFX, PARNEO #### [facility] [place], [place] [phone] Free/Tot Carn Ratio 0.725 0.7-0.9 Normal 07-31-2017 [facility] (89827) Comment: Performed By: #### CK, FT4, TSH, LD6, HBA1C, LACPYR, AAQTPL, GADCAB, CARNPL, PLTHY ####[facility] [place], [place] [phone]#### CASRFX , LG1RFX, PARNEO #### [facility] [place], [place] [phone] Total L-Carnitine 40 27-66 umol/L Normal 07-31-2017 [facility] [place] [facility] (13567) Comment: Performed By: #### CK, FT4, TSH, LD6, HBA1C, LACPYR, AAQTPL, GADCAB, CARNPL, PLTHY ####[facility] [address] [place], [place] [phone]#### CASRFX , LG1RFX, PARNEO #### [facility] [place], [place] [phone] amino acids quant,pl on 2017-07-31 Alanine 389 177-583 um/L Normal 07-31-2017 [facility] (72474) Comment: Performed By: #### CK, FT4, TSH, LD6, HBA1C, LACPYR, AAQTPL, GADCAB, CARNPL, PLTHY ####[facility] [place], [place] [phone]#### CASRFX , LG1RFX, PARNEO #### [facility] [place], [place] [phone] Alloisoleucine 0 0-2 um/L Normal 07-31-2017 [facility] (90919) Comment: Performed By: #### CK, FT4, TSH, LD6, HBA1C, LACPYR, AAQTPL, GADCAB, CARNPL, PLTHY ####[facility] [place], [place] [phone]#### CASRFX , LG1RFX, PARNEO #### [facility] [place] [place], [place] [phone] Alpha-aminoadipic Ac 0 0-6 um/L Normal 7 [facility] (30758) Comment: Performed By: #### CK, FT4, TSH, LD6, HBA1C, LACPYR, AAQTPL, GADCAB, CARNPL, PLTHY ####[facility] [address]qc[address]uv[address] [place], [place] [phone]#### CASRFX , LG1RFX, PARNEO #### [facility] [place] [place], [place] [phone] Review Reviewed by [place] Normal 07-31-2017 [facility] Jodee, Ph.D. Suman case (90877) Comment: Performed By: #### CK, FT4, TSH, LD6, HBA1C, LACPYR, AAQTPL, GADCAB, CARNPL, PLTHY ####[facility] [address] [place], [place] [phone]#### CASRFX , LG1RFX, PARNEO #### [facility] [place] [place], [place] [phone] Arginine 19 15-128 um/L Normal 07-31-2017 [facility] (23357) Comment: Performed By: #### CK, FT4, TSH, LD6, HBA1C, LACPYR, AAQTPL, GADCAB, CARNPL, PLTHY ####[facility] [address] [place], [place] [phone]#### CASRFX , LG1RFX, PARNEO #### [facility] [place] [place], [place] [phone] Asparagine 30 35-74 um/L Low 07-31-2017 [facility] (29528) Comment: Performed By: #### CK, FT4, TSH, LD6, HBA1C, LACPYR, AAQTPL, GADCAB, CARNPL, PLTHY ####[facility] [address] [place], [place] [phone]#### CASRFX , LG1RFX, PARNEO #### [facility] [place], [place] [phone] Aspartic Acid 6 1-25 um/L Normal 07-31-2017 [facility] (12073) Comment: Performed By: #### CK, FT4, TSH, LD6, HBA1C, LACPYR, AAQTPL, GADCAB, CARNPL, PLTHY ####[facility] [address] [place], [place] [phone]#### CASRFX , LG1RFX, PARNEO #### [facility] [place] [place], [place] [phone] Citrulline 24 12-55 um/L Normal 07-31-2017 [facility] (59384) Comment: Performed By: #### CK, FT4, TSH, LD6, HBA1C, LACPYR, AAQTPL, GADCAB, CARNPL, PLTHY ####[facility] [address] [place], [place] [phone]#### CASRFX , LG1RFX, PARNEO #### [facility] [place] [place], [place] [phone] Cystine 42 5-82 um/L Normal 07-31-2017 [facility] (26981) Comment: Performed By: #### CK, FT4, TSH, LD6, HBA1C, LACPYR, AAQTPL, GADCAB, CARNPL, PLTHY ####[facility] [address]qr[address] [place], [place] [phone]#### CASRFX , LG1RFX, PARNEO #### [facility] [place] [place], [place] [phone] Glutamic Acid 130 10-131 um/L Normal 07-31-2017 [facility] (97156) Comment: Performed By: #### CK, FT4, TSH, LD6, HBA1C, LACPYR, AAQTPL, GADCAB, CARNPL, PLTHY ####[facility] [address]Ckettering health main campusand[place], [place] [phone]#### CASRFX , LG1RFX, PARNEO #### [facility] [place] [place] [phone] Glutamine 391 205-756 um/L Normal 07-31-2017 [facility] (42173) Comment: Performed By: #### CK, FT4, TSH, LD6, HBA1C, LACPYR, AAQTPL, GADCAB, CARNPL, PLTHY ####[facility] [address], [place] [phone]#### CASRFX , LG1RFX, PARNEO #### [facility] [place] [place], [place] [phone] Glycine 139 151-490 um/L Low 07-31-2017 [facility] (55206) Comment: Performed By: #### CK, FT4, TSH, LD6, HBA1C, LACPYR, AAQTPL, GADCAB, CARNPL, PLTHY ####[facility] [address]yl[address] [place], [place] [phone]#### CASRFX , LG1RFX, PARNEO #### [facility] [place] [place], [place] [phone] Histidine 55 72-124 um/L Low 07-31-2017 [facility] (58429) Comment: Performed By: #### CK, FT4, TSH, LD6, HBA1C, LACPYR, AAQTPL, GADCAB, CARNPL, PLTHY ####[facility] [address], [place] [phone]#### CASRFX , LG1RFX, PARNEO #### [facility] [place] [place], [place] [phone] Hydroxylysine 1 0 um/L High 07-31-2017 [facility] (51684) Comment: Performed By: #### CK, FT4, TSH, LD6, HBA1C, LACPYR, AAQTPL, GADCAB, CARNPL, PLTHY ####[facility] [place], [place] [phone]#### CASRFX , LG1RFX, PARNEO #### [facility] [place] [place], [place] [phone] Hydroxyproline 10 0-53 um/L Normal 07-31-2017 [facility] (24393) Comment: Performed By: #### CK, FT4, TSH, LD6, HBA1C, LACPYR, AAQTPL, GADCAB, CARNPL, PLTHY ####[facility] [place], [place] [phone]#### CASRFX , LG1RFX, PARNEO #### [facility] [place] [place], [place] [phone] Interpretation (NOTE) Normal 07-31-2017 [facility] (17137) Comment: Result Comment: THIS PLASMA AMINO ACID ANALYSIS SHOWS LOW LEVELS OF SEVERAL AMINOACIDS SUGGESTING REDUCE D DIETARY AMINO ACID INTAKE. Date of Analysis:08/02/17 Date of Re view: 08/02/17 Reference intervals from Veronica Thrasher, Christina MG, Floyd GEORGE, marsha CROCKER: Biochemical Genetics: A Laboratory Manual, Copyright 1989 by [facility] [employer] Reference intervals not established for some ami no acids. This test was developed and its performance characteristics determined by [facility]'s Jenny العلي [facility] Pathology and [facility] ([facility]). It has not been cleared or approved by the FDA. -[facility] is regulated under CLIA as qualified to perform high-co mplexity testing. This test is used for clinical purposes. It should not be r egarded as investigational or for research. Performed By: #### CK, FT4, TSH, LD6, HBA1C, LACPYR, AAQTPL, GADCAB, CARNPL, PLTHY ####[facility] [address], [place] [phone]#### CASRFX , LG1RFX, PARNEO #### [facility] [place] [place], [place] [phone] Isoleucine 51 30-108 um/L Normal 07-31-2017 [facility] (44234) Comment: Performed By: #### CK, FT4, TSH, LD6, HBA1C, LACPYR, AAQTPL, GADCAB, CARNPL, PLTHY ####[facility] [address] [place], [place] [phone]#### CASRFX , LG1RFX, PARNEO #### [facility] [place] [place], [place] [phone] Leucine 83 72-201 um/L Normal 07-31-2017 [facility] (73976) Comment: Performed By: #### CK, FT4, TSH, LD6, HBA1C, LACPYR, AAQTPL, GADCAB, CARNPL, PLTHY ####[facility] [address] [place], [place] [phone]#### CASRFX , LG1RFX, PARNEO #### [facility] [place] [place], [place] [phone] Lysine 116 116-296 um/L Normal 07-31-2017 [facility] (10622) Comment: Performed By: #### CK, FT4, TSH, LD6, HBA1C, LACPYR, AAQTPL, GADCAB, CARNPL, PLTHY ####[facility] [address], [place] [phone]#### CASRFX , LG1RFX, PARNEO #### [facility] [place] [place], [place] [phone] Methionine 13 10-42 um/L Normal 07-31-2017 [facility] (26972) Comment: Performed By: #### CK, FT4, TSH, LD6, HBA1C, LACPYR, AAQTPL, GADCAB, CARNPL, PLTHY ####[facility] [address], [place] [phone]#### CASRFX , LG1RFX, PARNEO #### [facility] [place] [place], [place] [phone] Ornithine 73 48-195 um/L Normal 07-31-2017 [facility] (15946) Comment: Performed By: #### CK, FT4, TSH, LD6, HBA1C, LACPYR, AAQTPL, GADCAB, CARNPL, PLTHY ####[facility] [address] [place], [place] [phone]#### CASRFX , LG1RFX, PARNEO #### [facility] [place] [place], [place] [phone] Phenylalanine 49 35-85 um/L Normal 07-31-2017 [facility] (04075) Comment: Performed By: #### CK, FT4, TSH, LD6, HBA1C, LACPYR, AAQTPL, GADCAB, CARNPL, PLTHY ####[facility] [address] [place], [place] [phone]#### CASRFX , LG1RFX, PARNEO #### [facility] [place] [place], [place] [phone] Proline 229 97-329 um/L Normal 07-31-2017 [facility] (11036) Comment: Performed By: #### CK, FT4, TSH, LD6, HBA1C, LACPYR, AAQTPL, GADCAB, CARNPL, PLTHY ####[facility] [address] [place], [place] [phone]#### CASRFX , LG1RFX, PARNEO #### [facility] [place] [facility] CenterKana [place], [place] [phone] Sarcosine 0 0 um/L Normal 07-31-2017 [facility] (64487) Comment: Performed By: #### CK, FT4, TSH, LD6, HBA1C, LACPYR, AAQTPL, GADCAB, CARNPL, PLTHY ####[facility] [address] [place] [address], [place] [phone]#### CASRFX , LG1RFX, PARNEO #### [facility] [place] [place], [place] [phone] Serine 59 58-181 um/L Normal 07-31-2017 [facility] (00588) Comment: Performed By: #### CK, FT4, TSH, LD6, HBA1C, LACPYR, AAQTPL, GADCAB, CARNPL, PLTHY ####[facility] [address]gtjj[address] [place], [place] [phone]#### CASRFX , LG1RFX, PARNEO #### [facility] [place] [place], [place] [phone] Taurine 61 54-210 um/L Normal 07-31-2017 [facility] (94386) Comment: Performed By: #### CK, FT4, TSH, LD6, HBA1C, LACPYR, AAQTPL, GADCAB, CARNPL, PLTHY ####[facility] y[address]wf[address]dzz[address] [place], [place] [phone]#### CASRFX , LG1RFX, PARNEO #### [facility] [place] [place], [place] [phone] Threonine 59 60-225 um/L Low 07-31-2017 [facility] (23479) Comment: Performed By: #### CK, FT4, TSH, LD6, HBA1C, LACPYR, AAQTPL, GADCAB, CARNPL, PLTHY ####[facility] [place], [place] [phone]#### CASRFX , LG1RFX, PARNEO #### [facility] [place] [place], [place] [phone] Tyrosine 51 34-112 um/L Normal 07-31-2017 [facility] (84005) Comment: Performed By: #### CK, FT4, TSH, LD6, HBA1C, LACPYR, AAQTPL, GADCAB, CARNPL, PLTHY ####[facility] [place], [place] [phone]#### CASRFX , LG1RFX, PARNEO #### [facility] [place] [place], [place] [phone] Valine 175 119-336 um/L Normal 07-31-2017 [facility] (05841) Comment: Performed By: #### CK, FT4, TSH, LD6, HBA1C, LACPYR, AAQTPL, GADCAB, CARNPL, PLTHY ####[facility] [place], [place] [phone]#### CASRFX , LG1RFX, PARNEO #### [facility] [place] [place], [place] [phone] nm gastric emptying solid on 2017-07-19 [place] GASTRIC Performed at [facility] APPROVED BY: [facility] Rodolfo Azar MD ([id number]) EXAMINATION: NM GASTRIC EMPTYING STUDY EXAM DATE: [...] 07-19-2017 - Ambulatory Nausea with HARVEY FAJARDO [facility] 07-20-2017 vomiting, [facility] unspecified (42467) 07-08-2017 Ambulatory [place] Facility:[facility] 03-29-2020 - Patient encounter External [facility] 03-29-2020 procedure Provider 08-31-2018 Patient encounter [facility] - Facility:[facility] procedure [facility] 07-23-2018 - Patient encounter AYANA LOPEZ) [facility] 07-23-2018 procedure [facility] (0000 0) 05-23-2018 - Patient encounter [facility] 05-26-2018 procedure [facility] (0000 0) 12-31-2017 - Patient encounter MUKUL Luis JARETT Villatoroa [facility] 12-31-2017 procedure [facility] (0000 0) 12-31-2017 - Patient encounter MUKUL Luis STEVEN Juwanvela [facility] 12-31-2017 procedure [facility] (0000 0) 12-31-2017 - Patient encounter MUKUL Villatoroa [facility] 01-01-2018 procedure [facility] (0000 0) 12-18-2017 - Patient encounter MUKUL Luis Echeverrianemoa [facility] 12-18-2017 procedure YOU JOHNSON [facility] (0000 0) DARYL 10-22-2017 - Patient encounter MUKUL Echeverrianemoa [facility] 10-22-2017 procedure MUKUL Luis STEVEN [facility] (0 0000) 10-11-2017 - Patient encounter MUKUL Villatoroa [facility] 10-11-2017 procedure [facility] (0000 0) 07-31-2017 - Patient encounter MUKUL MANCILLAPrice [facility] 08-08-2017 procedure HARVEYRADHA FAJARDO [facility] (0000 0) [facility]CKY GUILLORY MUKUL Banuelos JARETT 03-29-2020 Results Only External External-NonCCF Provider Procedures Procedure Name Date Provider Location EXTERNAL IMAGING 03-29-2020 External Provider [facility] (22259) Mammography 12-31-2017 [facility] (44447) Plan of Treatment Plan Description Date Location INFLUENZA (#1) INFLUENZA (#1) 2020 [facility] (20256) ADVANCE DIRECTIVE ADVANCE DIRECTIVE 2019 [facility] inic DISCUSSION DISCUSSION (20977) BONE DENSITY BONE DENSITY 2019 [facility] (96258) PNEUMOVAX AGE 65 AND OVER PNEUMOVAX AGE 65 AND OVER 2019 [facility] WITH 5YR LOOKBACK (#1) WITH 5YR LOOKBACK (#1) (7 7465) MAMMOGRAM MAMMOGRAM 12-31-2018 [facility] (09231) COLORECTAL CANCER COLORECTAL CANCER 06-19-2018 [facility] inic SCREENING,SEE MODIFIER SCREENING,SEE MODIFIER (6 1431) HBA1C HBA1C 10-29-2017 [facility] (64573) LDL CHOLESTEROL LDL CHOLESTEROL 11-12-2015 [facility] (60805) SHINGRIX VACCINE (1 of 2) SHINGRIX VACCINE (1 of 2) 2004 [facility] (54902) DTAP,TDAP,TD (1 - Tdap) DTAP,TDAP,TD (1 - Tdap) 1973 [facility] (09888) ANNUAL PCP TEAM CHRONIC ANNUAL PCP TEAM CHRONIC 1972 [facility] DISEASE VISIT DISEASE VISIT (41818) HEPATITIS C SCREENING HEPATITIS C SCREENING 1972 [facility] (50750) HIV SCREENING HIV SCREENING 1972 [facility] (23301) DIABETIC FOOT EXAM DIABETIC FOOT EXAM 1964 [facility] (36903) URINE ALBUMIN:CREATININE URINE ALBUMIN:CREATININE 1964 [facility] RATIO RATIO (39342) DILATED RETINAL EXAM DILATED RETINAL EXAM 1964 [facility] (01646) Payers Payer Name Policy Number Location [employer] BLUE [employer] [id number] [facility] ([id number]) DARIAN L[facility] [id number] [facility] (57403) The following information is from the original human readable contentNo Payer Records FoundNo Payer Records FoundNo Payer Records FoundNo Payer Records FoundNo Payer Records FoundNo Payer Records FoundNo Payer Records Found Social History Type Social History Description Date Locat ion Tobacco smoking status Never smoker 07-23-2018 [facility] (00948) NHIS Tobacco use and exposure Never used 07-23-2018 [facility] (64053) Alcohol intake Current non-drinker of 07-23-2018 [facility] (02906) alcohol (finding) Sex Assigned At Not on file [facility] (48094) The following information is from the original [...] BE BASED ON THE PRIMARY CLINICAL RECORDS. [facility] provides no warranty or guarantee of the accuracy or completeness of information in this document. UNRECOGNIZED CONTENT PROVIDED BELOW FOR UNRECOGNIZED SECTION INFORMATION SOURCE DATE CREATED AUTHOR AUTHOR'S ORGANIZATIO N 02/11/2018 [facility] DATE CREATED AUTHOR AUTHOR'S ORGANIZATIO N 02/11/2018 [facility] DATE CREATED AUTHOR AUTHOR'S ORGANIZATIO N 07/29/2018 [facility] DATE CREATED AUTHOR AUTHOR'S ORGANIZATIO N 09/03/2018 [facility] [facility] [place] DATE CREATED AUTHOR AUTHOR'S ORGANAAMIRATIO N 05/20/2020 [facility] [place] ([place]) UNRECOGNIZED CONTENT PROVIDED BELOW FOR UNRECOGNIZED SECTION Source Comments In the event this information is protected by the Federal Confidentiality of Alcohol and Drug Abuse Patient Records regulations: The Federal rules restrict any use of the information to criminally investigate or prosecute any alcohol or drug abuse patient.[facility]
== END 2020-01-22 15:48 | disposition home or self-care (01) ==
PROVIDERS: Emergency Provider Emergency Medicine; PCP Family Medicine
DX: N39.0 Urinary tract infection, site not specified (principal); R11.15 Cyclical vomiting syndrome unrelated to migraine; E11.43 Type 2 diabetes mellitus with diabetic autonomic (poly)neuropathy; K31.84 Gastroparesis; M79.7 Fibromyalgia; K21.9 Gastro-esophageal reflux disease without esophagitis; I10 Essential (primary) hypertension; I48.0 Paroxysmal atrial fibrillation; G89.4 Chronic pain syndrome; I51.81 Takotsubo syndrome; E78.5 Hyperlipidemia, unspecified; F32.9 Major depressive disorder, single episode, unspecified; G40.909 Epilepsy, unspecified, not intractable, without status epilepticus; Z79.4 Long term (current) use of insulin; Z79.82 Long term (current) use of aspirin; Z79.899 Other long term (current) drug therapy
CPT/HCPCS: 74177; 80053; 81001; 83690; 84484; 85025; 87077; 87086; 87088; 87186; 93005; 96361; 96374; 96375; 99284; J7030; Q9967; A4216; J2405

== ENCOUNTER → 2020-02-04 14:42 | Outpatient (CLI) | payer MEDICARE, MEDICAID, SELFPAY ==
[2019-12-03 11:43] VITALS: BMI 46.0
[2020-01-22 10:53] VITALS: BMI 46.0
--- NOTE | 2020-02-04 14:44 | ECHOD_ITS ---
Procedure This was a 2D Doppler, Color Flow transthoracic echocardiogram. The study was technically difficult. Unable to use Definity as no IV access & NO RN available for IV. Exam performed in department. Left Ventricle Normal LV size. Left ventricular systolic function is normal. The estimated ejection fraction is 55 %. There is evidence of diastolic dysfunction. No regional wall motion abnormalities noted. Right Ventricle Normal RV size. Normal systolic function. Atria The left atrium is moderately enlarged. Normal right atrium. No doppler evidence for ASD. Mitral Valve There is mild mitral annular calcification. Extension of the mitral annular calcification onto the base of the posterior mitral valve leaflet. Trivial mitral valve insufficiency. Tricuspid Valve Normal tricuspid valve. Trivial tricuspid valve insufficiency. Right ventricular systolic pressure estimated to be 17 mmHg. Aortic Valve 2D echocardiographic images potentially compatible with a bicuspid aortic valve with a calcified and fused raphae. Trivial aortic valve insufficiency. Pulmonic Valve The pulmonic valve is not well visualized. Great Vessels Normal sized aortic root. Pericardium/Pleural No pericardial effusion. MMode/2D Measurements & Calculations LVIDd: 5.6 cm IVSd: 1.2 cm LVOT diam: 2.1 cm LVIDs: 3.8 cm LVPWd: 1.4 cm LVOT area: 3.5 cm2 RVDd: 3.6 cm FS: 31.1 % Ao root diam: 3.4 cm LAV(MOD-bp): 84.3 ml LA A4 area: 23.6 cm2 LAV(MOD-bp) Indexed: 36.3 ml/m2 LAV(MOD-sp2): 84.8 ml LAV(MOD-sp4): 84.7 ml LA dimension(2D): 4.6 cm RA A4 area: 12.0 cm2 Time Measurements MV dec time: 0.34 sec Doppler Measurements & Calculations MV E max juan: 95.5 cm/sec Lat Peak E' Juan: 9.2 cm/sec Med Peak E' Juan: 4.3 cm/sec MV A max juan: 94.6 cm/sec E/E' lat: 10.4 E/E' med: 22.1 MV E/A: 1.0 Ao V2 max: 167.5 cm/sec AI max juan: 331.5 cm/sec LV V1 max: 96.9 cm/sec Ao max P.2 mmHg AI max P.1 mmHg LV V1 max P.8 mmHg Ao V2 mean: 126.5 cm/sec AI dec slope: 127.2 cm/sec2 LV V1 mean P.9 mmHg Ao mean P.9 mmHg AI P1/2t: 763.1 msec LV V1 mean: 64.2 cm/sec Ao V2 VTI: 38.9 cm LV V1 VTI: 22.0 cm RANDY(I,D): 2.0 cm2 RANDY(V,D): 2.0 cm2 SV(LVOT): 76.1 ml PA V2 max: 89.2 cm/sec TR max juan: 186.7 cm/sec TR max P.9 mmHg Interpretation Summary The study was technically difficult. Left ventricular systolic function is normal. The estimated ejection fraction is 55 %. The left atrium is moderately enlarged. There is mild mitral annular calcification. Extension of the mitral annular calcification onto the base of the posterior mitral valve leaflet. Trivial mitral valve insufficiency. Trivial tricuspid valve insufficiency. 2D echocardiographic images potentially compatible with a bicuspid aortic valve with a calcified and fused raphae. Trivial aortic valve insufficiency. Right ventricular systolic pressure estimated to be 17 mmHg. There is evidence of diastolic dysfunction. Ordering Physician: Carley Ziegler Referring Physician: Carley Ziegler
== END ==
PROVIDERS: PCP Family Medicine; Referring Provider Physician Assistant Medical; Visit Provider Physician Assistant Medical
DX: I51.81 Takotsubo syndrome (principal)
CPT/HCPCS: 93306; Q9957; A4216

== ENCOUNTER 2020-02-19 20:12 | Emergency (ER) | payer MEDICARE, MEDICAID, SELFPAY ==
[2020-02-19 20:13] VITALS: BP 194/94; PULSE 61; RESP 16; TEMP 36.8; O2SAT 94; BMI 46.7
[2020-02-19] MEDS: Morphine 4 MG/ML Syringe IV (21:45)
[2020-02-19] MEDS: Ondansetron 4 MG/2 ML Vial IV (21:45)
[2020-02-19 21:49] LABS: Absolute Lymphocyte Count 1.77 X10^3/uL (0.83-4.51); Absolute Neutrophil Count 8.6 X10^3/uL (2.0-7.7); Basophil# 0.06 X10^3/uL; Basophil% 0.5 % (0-1); Eosinophils% 3.4 % (0-5); Hemoglobin 13.1 g/dL (12.0-15.0); Lymphocyte # 1.77 X10^3/ul (4.0); Mean Corpuscular Hgb 27.5 pg (27.0-32.0); Mean Platelet Vol. 10.1 fl (6.2-12.0); Monocyte# 0.96 X10^3/uL; Monocyte% 8.1 % (0-10); NRBC Flagged by Analyzer 0 % (0-5); Neutrophil % 72.7 % (47-70); Platelet Count 260 K/mm3 (150-450); RBC Distribution Width CV 13.6 % (11.6-14.6); RBC Distribution Width SD 42.4 fl (35.1-43.9); Red Blood Count 4.77 M/mm3 (4.2-5.4); White Blood Count 11.8 K/mm3 (4.4-11.0)
--- NOTE | 2020-02-19 22:01 | RAD_ITS ---
STUDY: X-RAY - UNILATERAL RIBS ( LEFT ) WITH CHEST REASON FOR EXAM: Female, 64 years old. LEFT SIDED RIB PAIN X 9 WEEKS TECHNIQUE - RIBS: 4 view(s) of the ribs. TECHNIQUE - CHEST: Single PA view of the chest. COMPARISON: Previous chest study of 01/11/2020 FINDINGS - RIBS: There is an oblique lucency of the anterolateral left seventh rib, suspicious for fracture. FINDINGS - CHEST: The lungs are clear and expanded. There is no demonstrated pleural abnormality. Normal size heart. Normal mediastinum and judith. Normal visualized pulmonary arteries. There are calcified plaques in the aortic arch. Normal visualized thoracic spine. Normal visualized ribs, clavicles, and shoulders. There is no demonstrated abnormality of the visualized soft tissue structures of the upper abdomen. RAD/Ribs Uni Min 3V w/PA Chest IMPRESSION: RIBS: An oblique linear lucency of the anterolateral left seventh rib is noted, suspicious for fracture. CHEST: Calcified plaques of the aortic arch. No evidence of hemo or pneumothorax or pulmonary contusion. Electronically Signed: Gareth Gamble MD at 22:58 EDT , Service support ,
[2020-02-19 22:11] LABS: ALB/GLOB Ratio 0.9 RATIO (0.9-2.4); AST(SGOT) 19 U/L (15-37); Alanine Aminotransfer ALT/SGPT 24 U/L (13-56); Albumin, Serum 3.3 g/dL (3.2-5.0); Alkaline Phosphatase 174 U/L (45-117); Anion Gap 2 (5-15); BUN 11 mg/dL (7-18); BUN/Creat Ratio 9.1 RATIO (10-20); Calcium,Total 8.8 mg/dL (8.5-10.1); Chloride 106 mmol/L (98-107); Creatinine, Serum 1.21 mg/dL (0.55-1.02); EST Glomerular Filtration Rate 47 mL/min (>60); Est Glom Filt Rate - Afr Amer 57 mL/min (>60); Estimated Creatinine Clearance 43.39 ml/min; Globulin 3.5 g/dL (2.2-4.2); Glucose 129 mg/dL (74-106); Lipase 66 U/L (73-393); Potassium 4.3 mmol/L (3.5-5.1); Protein, Total 6.8 g/dL (6.4-8.2); Sodium Level 140 mmol/L (136-145)
--- NOTE | 2020-02-19 22:54 | ED.DCSUM_ITS ---
- ER Visit Summary Date of Service: 02/19/20 Chief Complaint: Left side pain History of Present Illness: The patient is a 64 F who presents with left side pain that has been constant for the past 9 weeks. Patient states she has seen her primary care physician for this. Patient states she was seen in the ER a couple times for this. Patient states she had a CT scan of her abdomen and pelvis approximately 1 month ago which was normal. Patient states she has x- rays ordered by her primary care physician but has not had them yet. Patient admits to some mild shortness of breath. Patient admits to nausea but denies any vomiting. Patient states her pain improves with using ice packs. Patient states the pain is sharp. Patient states the pain is localized to the left lower ribs. Physical Examination: Vital signs are stable. Patient is afebrile. Patient is in no acute distress. Oral mucosa is pink and moist. Neck is supple. Trachea is midline. There is no JVD. Heart was regular rate and rhythm. Lungs are clear and equal bilaterally. Abdomen is soft. Bowel sounds are normal. There is no tenderness. Extremities are intact. There is no calf tenderness or edema. Musculoskeletal exam reveals tenderness over the left lower ribs. There is no bony crepitance or step-off. Cranial nerves II through XII are intact. There are no focal motor or sensory deficits. Test Results: CBC shows a white blood cell count of 11.8. Comprehensive metab olic profile shows a creatinine of 1.21. This is consistent with prior results. Lipase was normal. X-rays of the left ribs were obtained. There is a nondisplaced fracture of the left seventh rib. These were interpreted by myself and the radiologist. Emergency Department Course and Treatment: Patient was given a dose of morphine and Zofran here. Patient was advised of her results. Patient was instructed to take Tylenol or ibuprofen as needed for pain. Patient was instructed to continue using ice to the area. Patient was instructed to follow-up with her primary care physician in 5 to 7 days for further evaluation. Patient understood and was agreeable with the plan. All questions were answered. Disposition: Discharge home Impression: Left rib fracture This note was generated with [employer] dictation software. It may contain incorrect words, spelling, and punctuation that were not noted in review of the chart prior to signing ED Disposition - Plan for ED Patient: Disposition: Home or Assisted Living Diagnosis: Left rib fracture Instructions: ED Rib Fx Referrals: Devan Parks MD [Primary Care Provider] - 5-7 Days
[2020-02-19 23:17] VITALS: BP 181/80; PULSE 61; RESP 18; O2SAT 99
== END 2020-02-19 23:18 | disposition home or self-care (01) ==
PROVIDERS: Emergency Provider Emergency Medicine; PCP Family Medicine
DX: S22.32XA Fracture of one rib, left side, initial encounter for closed fracture (principal); X58.XXXA Exposure to other specified factors, initial encounter; Y93.9 Activity, unspecified; Y92.9 Unspecified place or not applicable; E66.9 Obesity, unspecified
CPT/HCPCS: 71101; 80053; 83690; 85025; 96374; 96375; 99282; J2405

== ENCOUNTER → 2020-02-24 09:53 | Outpatient (CLI) | payer MEDICARE, MEDICAID, SELFPAY ==
[2020-02-19 20:13] VITALS: BMI 46.7
[2020-02-24 10:55] LABS: Absolute Lymphocyte Count 1.87 X10^3/uL (0.83-4.51); Absolute Neutrophil Count 7.7 X10^3/uL (2.0-7.7); Basophil# 0.06 X10^3/uL; Basophil% 0.6 % (0-1); Eosinophils% 2.8 % (0-5); Hematocrit 38.7 % (37-47); Hemoglobin 12.7 g/dL (12.0-15.0); Lymphocyte # 1.87 X10^3/ul (4.0); Lymphocyte % 17.3 % (19-41); Mean Corp Hgb Conc 32.8 g/dL (32-36); Mean Corpuscular Hgb 27.9 pg (27.0-32.0); Mean Corpuscular Volume 84.9 fL (81-99); Mean Platelet Vol. 10.8 fl (6.2-12.0); Monocyte# 0.87 X10^3/uL; Monocyte% 8.1 % (0-10); NRBC Flagged by Analyzer 0 % (0-5); Neutrophil # 7.66 X10^3/uL (2.7-7.7); Neutrophil % 70.9 % (47-70); Platelet Count 243 K/mm3 (150-450); RBC Distribution Width CV 13.8 % (11.6-14.6); RBC Distribution Width SD 42.7 fl (35.1-43.9); Red Blood Count 4.56 M/mm3 (4.2-5.4); White Blood Count 10.8 K/mm3 (4.4-11.0)
[2020-02-24 11:23] LABS: ALB/GLOB Ratio 0.8 RATIO (0.9-2.4); AST(SGOT) 15 U/L (15-37); Alanine Aminotransfer ALT/SGPT 21 U/L (13-56); Alkaline Phosphatase 182 U/L (45-117); Anion Gap 7 (5-15); BUN 17 mg/dL (7-18); BUN/Creat Ratio 14.4 RATIO (10-20); Calcium,Total 8.9 mg/dL (8.5-10.1); Chloride 98 mmol/L (98-107); Creatinine, Serum 1.18 mg/dL (0.55-1.02); EST Glomerular Filtration Rate 49 mL/min (>60); Est Glom Filt Rate - Afr Amer 59 mL/min (>60); Glucose 438 mg/dL (74-106); Potassium 4.3 mmol/L (3.5-5.1); Sodium Level 132 mmol/L (136-145)
== END ==
PROVIDERS: PCP Family Medicine; Referring Provider Internal Medicine Rheumatology; Visit Provider Internal Medicine Rheumatology
DX: M06.4 Inflammatory polyarthropathy (principal); M21.40 Flat foot [pes planus] (acquired), unspecified foot; M51.37 Other intervertebral disc degeneration, lumbosacral region; M47.897 Other spondylosis, lumbosacral region; M47.892 Other spondylosis, cervical region; K21.9 Gastro-esophageal reflux disease without esophagitis; G25.81 Restless legs syndrome; I42.9 Cardiomyopathy, unspecified; I25.10 Atherosclerotic heart disease of native coronary artery without angina pectoris
CPT/HCPCS: 36415; 80053; 85025

== ENCOUNTER 2020-05-30 10:43 | Emergency (ER) | payer MEDICARE, MEDICAID, SELFPAY ==
[2020-04-14 09:52] VITALS: BMI 48.6
[2020-05-30 10:45] VITALS: BP 159/101; PULSE 79; RESP 20; TEMP 36.3; O2SAT 96; BMI 50.6
--- NOTE | 2020-05-30 11:08 | ED.DCSUM_ITS ---
History of Present Illness Chief Complaint: Flank Pain Informant: Patient Narrative: 64-year-old female with extensive past medical history including hypertension, CVA, diabetes presents for bilateral back pain. States it is been worsening over the past 2 days. Patient concern for her kidneys. States that she does see a kidney doctor but is unsure if she has kidney disease. Has any fever or chills. Denies any urinary symptoms. Patient does have chronic back pain for which she takes Jackhorn but this does feel different. Denies any numbness or tingling. Denies any IV drug abuse, saddle anesthesia, loss of bowel or bladder. Denies any trauma. Past Medical History - Allergies and Home Meds Allergies/Adverse Reactions: Allergies ciprofloxacin [From Cipro] Allergy (Verified 05/30/20 10:45) short of breath cyclobenzaprine Allergy (Verified 05/30/20 10:45) rash levofloxacin [From Levaquin] Allergy (Verified 05/30/20 10:45) PT UNSURE OF REACTION metformin Allergy (Verified 05/30/20 10:45) other sulfamethoxazole Allergy (Verified 05/30/20 10:45) itch topiramate Allergy (Verified 05/30/20 10:45) PT UNSURE OF REACTION trimethoprim Allergy (Verified 05/30/20 10:45) itch valacyclovir [From Valtrex] Allergy (Verified 05/30/20 10:45) other ketorolac [From Toradol] Adverse Reaction (Verified 05/30/20 10:45) Other Primary Care Physician: Devan Parks MD [Primary Care Provider] - Prior records reviewed: Yes Past Medical History: - - HTN, CVA, DMII, RA Surgical History: appendectomy, cholecystectomy, - - Arthroscopic knee surgery. Lives: With Family Smoking Status: Never smoker Alcohol: None Drugs: None - Family History Paternal Family History: Family History (Last Updated 04/14/20 @ 09:51 by Leandra Gunn) Mother Myocardial infarction Asthma Diabetes Father Congestive heart failure Other Heart disease Family History: Reports: Heart Disease, - - Bone cancer Maternal Family History: Family History (Last Updated 04/14/20 @ 09:51 by Leandra Gunn) Mother Myocardial infarction Asthma Diabetes Father Congestive heart failure Other Heart disease Family History: Reports: COPD, Diabetes, Heart Disease, - - Smoker Review of Systems General: Denies: Chills, Fever, Sweats Eyes: Denies: Visual changes - bilaterally, Diplopia ENT: Denies: Rhinorrhea, Sore throat Cardiovascular: Denies: Chest pain, Palpitations Respiratory: Denies: Dyspnea, Cough, Dyspnea on exertion Gastrointestinal: Denies: Abdominal pain, Nausea, Vomiting, Diarrhea, Melena, Hematochezia Genitourinary: Denies: Dysuria, Hematuria, Frequency Musculoskeletal: Reports: Back pain. Denies: Extremity Pain Skin: Denies: Rash, Wounds Neurological: Denies: Headache, Weakness, Numbness Physical Exam Vital Signs/Narrative: Vital Signs Temp Pulse Resp BP Pulse Ox 05/30/20 10:45 97.3 F L 79 20 H 159/101 H 96 General: Well nourished, Well developed, No Acute Distress Head: Normocephalic, Atraumatic Eyes: Perrl, EOMI ENT: Moist mucous membranes, No rhinorrhea Neck: Supple, Nontender Cardiovascular: Regular rate, Regular rhythm, No murmurs Respiratory: No distress, CTA bilaterally, Chest nontender Abdomen: Soft, Nontender, Nondistended, Normal bowel sounds Back: Normal Inspection, - - TTP in the bilateral paraspinal lumbar musculature. Extremities: Nontender, No edema Skin: Normal color, No rash Neurological: Alert, Oriented x3, Cranial nerves II-XII grossly intact, Normal Strength, Normal Sensation Psychological: Normal affect, Normal Mood Diagnostic/Tx/Re-eval Laboratory Data 05/30/20 05/30/20 05/30/20 11:44 11:44 12:00 WBC 9.8 RBC 4.43 Hgb 12.4 Hct 38.6 MCV 87.1 MCH 28.0 MCHC 32.1 RDW Std Deviation 45.1 H RDW Coeff of Be 14.0 Plt Count 271 MPV 9.9 Immature Gran % (Auto) 0.300 Neut % (Auto) 71.2 H Lymph % (Auto) 16.6 L [place] % (Auto) 8.0 Eos % (Auto) 3.3 Baso % (Auto) 0.6 Absolute Neuts (auto) 7.0 Absolute Lymphs (auto) 1.63 Nucleated RBC % 0 Sodium 137 Potassium 3.9 Chloride 105 Carbon Dioxide 26.0 Anion Gap 6 BUN 19 H Creatinine 1.16 H Estim Creat Clear Calc 41.75 Est GFR (MDRD) Af Amer 60 Est GFR (MDRD) Non-Af 50 L BUN/Creatinine Ratio 16.4 Glucose 260 H Calcium 9.2 Urine Color Yellow Urine Clarity Clear Urine pH 5.0 Ur Specific [place] 1.010 Urine Protein Negative Urine Glucose (UA) 50 H Urine Ketones Negative Urine Occult Blood 10 H Urine Nitrite Positive H Urine Bilirubin Negative Urine Urobilinogen Normal Ur Leukocyte Esterase 25 H Urine RBC 0 SEEN Urine WBC 25-50 SEEN Ur Squamous Epith Cells 0 SEEN Urine Bacteria 3+ Urine Mucus 0 SEEN - Medical Decision Making Patient appears well nontoxic. Vital signs within normal limits. Lab work at baseline. Patient has evidence of urinary tract infection. Afebrile. Will be given Keflex and advised on taking her Jackhorn at home. Patient will be asked to follow-up with her primary care doctor and return for any fevers or worsening pain. Patient agreeable and discharged home in stable condition. Impression: 1. Urinary tract infection 2. Early pyelonephritis ED Disposition - Plan for ED Patient: Disposition: Home or Assisted Living Instructions: ED Pyelonephritis Female Adult Prescriptions: Cephalexin [Keflex] 500 mg PO Q6 #40 cap Prescription Printed Referrals: Devan Parks MD [Primary Care Provider] - 2 Days
[2020-05-30 11:51] LABS: Absolute Lymphocyte Count 1.63 X10^3/uL (0.83-4.51); Basophil# 0.06 X10^3/uL; Basophil% 0.6 % (0-1); Eosinophil# 0.32 X10^3/uL; Eosinophils% 3.3 % (0-5); Hematocrit 38.6 % (37-47); Hemoglobin 12.4 g/dL (12.0-15.0); Lymphocyte # 1.63 X10^3/ul (4.0); Lymphocyte % 16.6 % (19-41); Mean Corp Hgb Conc 32.1 g/dL (32-36); Mean Corpuscular Volume 87.1 fL (81-99); Mean Platelet Vol. 9.9 fl (6.2-12.0); Monocyte# 0.79 X10^3/uL; NRBC Flagged by Analyzer 0 % (0-5); Neutrophil # 7.01 X10^3/uL (2.7-7.7); Neutrophil % 71.2 % (47-70); Platelet Count 271 K/mm3 (150-450); RBC Distribution Width SD 45.1 fl (35.1-43.9); Red Blood Count 4.43 M/mm3 (4.2-5.4); White Blood Count 9.8 K/mm3 (4.4-11.0)
[2020-05-30] MEDS: 0.9% Normal Saline 1,000 ML 1000 ML IV (11:58)
[2020-05-30 12:09] LABS: Anion Gap 6 (5-15); BUN 19 mg/dL (7-18); BUN/Creat Ratio 16.4 RATIO (10-20); Calcium,Total 9.2 mg/dL (8.5-10.1); Chloride 105 mmol/L (98-107); Creatinine, Serum 1.16 mg/dL (0.55-1.02); EST Glomerular Filtration Rate 50 mL/min (>60); Est Glom Filt Rate - Afr Amer 60 mL/min (>60); Estimated Creatinine Clearance 41.75 ml/min; Glucose 260 mg/dL (74-106); Potassium 3.9 mmol/L (3.5-5.1); Sodium Level 137 mmol/L (136-145)
[2020-05-30 12:14] LABS: Mucous, Urine 0 SEEN /hpf (<or=2+); Red Blood Cells-Urine 0 SEEN /hpf (0-5); Squamous Epithelial Cells - UA 0 SEEN /hpf (5-10)
[2020-05-30 12:15] LABS: Color, Urine Yellow (Yellow); Glucose, Dipstick 50 mg/dl (Normal); Ketone-Dipstick Negative (Negative); Leukocyte Esterase-Dipstick 25 /ul (Negative); Nitrite-Dipstick Positive (Negative); Occult Blood-Urine 10 /ul (Negative); Protein-Dipstick Negative (Negative); Urine Bilirubin Dipstick Negative (Negative); Urine Clarity Clear (Clear); Urine Urobilinogen Normal (Normal)
[2020-05-30 12:23] LABS: Bacteria 3+ /hpf (None Seen); White Blood Cells 25-50 SEEN /hpf (0-5)
[2020-05-30 13:00] VITALS: BP 184/82; PULSE 64; RESP 18; O2SAT 96
[2020-05-30] MEDS: Cephalexin 250 MG Capsule 500 MG PO (13:06)
[2020-05-30 13:12] VITALS: PULSE 80; RESP 16; O2SAT 98
== END 2020-05-30 13:12 | disposition home or self-care (01) ==
PROVIDERS: Emergency Provider Emergency Medicine; PCP Family Medicine
DX: N39.0 Urinary tract infection, site not specified (principal); N12 Tubulo-interstitial nephritis, not specified as acute or chronic; I10 Essential (primary) hypertension; E11.9 Type 2 diabetes mellitus without complications; M06.9 Rheumatoid arthritis, unspecified; G89.29 Other chronic pain; Z86.73 Personal history of transient ischemic attack (TIA), and cerebral infarction without residual deficits; Z90.49 Acquired absence of other specified parts of digestive tract; Z79.4 Long term (current) use of insulin; Z79.82 Long term (current) use of aspirin; Z79.899 Other long term (current) drug therapy
CPT/HCPCS: 80048; 81001; 85025; 96360; 99281; 99285; J7030; P9612; A4216

== ENCOUNTER 2020-07-03 13:04 | Emergency (ER) | payer MEDICARE, MEDICAID, SELFPAY ==
[2020-07-03 13:06] VITALS: BP 185/79; PULSE 83; RESP 18; TEMP 36; O2SAT 98; BMI 48.5
[2020-07-03 13:09] VITALS: BP 185/79; PULSE 83; RESP 18; TEMP 36; O2SAT 98
--- NOTE | 2020-07-03 13:26 | ED.VIS.GEN ---
History of Present Illness Chief Complaint: Nausea/Vomiting Informant: Patient Onset: Today Current Severity: Mild Maximum Severity: Mild Narrative: Patient presents with recurrent nausea and vomiting that started again this morning. She states she tried taking Haldol but it did not stay down. She tried Zofran but continued to vomit in spite of this. She reports 4 episodes of emesis today. No fever or chills. She states her abdomen feels queasy but she has no abdominal pain. - Past Medical History (1) Rheumatoid arthritis Status: Chronic (2) Type 2 diabetes mellitus with diabetic polyneuropathy Status: Chronic (3) Benign essential HTN Status: Chronic (4) Depression Status: Chronic (5) Diabetic gastroparesis Status: Chronic (6) Fibromyalgia Status: Chronic (7) GERD (gastroesophageal reflux disease) Status: Chronic (8) HLD (hyperlipidemia) Status: Chronic (9) NSTEMI (non-ST elevated myocardial infarction) Status: Chronic (10) Paroxysmal atrial fibrillation Status: Chronic Past Medical History - Allergies and Home Meds Allergies/Adverse Reactions: Allergies ciprofloxacin [From Cipro] Allergy (Verified 05/30/20 10:45) short of breath cyclobenzaprine Allergy (Verified 05/30/20 10:45) rash levofloxacin [From Levaquin] Allergy (Verified 05/30/20 10:45) PT UNSURE OF REACTION metformin Allergy (Verified 05/30/20 10:45) other sulfamethoxazole Allergy (Verified 05/30/20 10:45) itch topiramate Allergy (Verified 05/30/20 10:45) PT UNSURE OF REACTION trimethoprim Allergy (Verified 05/30/20 10:45) itch valacyclovir [From Valtrex] Allergy (Verified 05/30/20 10:45) other ketorolac [From Toradol] Adverse Reaction (Verified 05/30/20 10:45) Other Primary Care Physician: Devan Parks MD [Primary Care Provider] - Prior records reviewed: Yes Surgical History: appendectomy, cholecystectomy, - - Arthroscopic knee surgery. Smoking Status: Never smoker - Family History Paternal Family History: Family History (Last Updated 04/14/20 @ 09:51 by Leandra Gunn) Mother Myocardial infarction Asthma Diabetes Father Congestive heart failure Other Heart disease Family History: Reports: Heart Disease, - - Bone cancer Maternal Family History: Family History (Last Updated 04/14/20 @ 09:51 by Leandra Gunn) Mother Myocardial infarction Asthma Diabetes Father Congestive heart failure Other Heart disease Family History: Reports: COPD, Diabetes, Heart Disease, - - Smoker Review of Systems General: Denies: Chills, Fever Eyes: Denies: Visual changes - bilaterally ENT: Reports: Rhinorrhea. Denies: Bilateral ear pain Cardiovascular: Denies: Chest pain Respiratory: Denies: Dyspnea, Cough Gastrointestinal: Reports: Nausea, Vomiting. Denies: Abdominal pain Genitourinary: Denies: Dysuria Musculoskeletal: Denies: Swelling, Extremity Pain Neurological: Denies: Headache Hematologic: Denies: Easy bruising, Easy bleeding Allergy: Denies: Uticaria Physical Exam Vital Signs/Narrative: Vital Signs Temp Pulse Resp BP Pulse Ox 07/03/20 13:09 96.8 F L 83 18 185/79 H 98 07/03/20 13:06 96.8 F L 83 18 185/79 H 98 Inital Vital Signs reviewed: Yes General: Well nourished, Well developed Head: Normocephalic ENT: Moist mucous membranes Neck: Supple Cardiovascular: Regular rate, Regular rhythm Respiratory: No distress, CTA bilaterally Abdomen: Soft, Nontender, Hypoactive bowel sounds Extremities: Nontender Skin: Normal color Neurological: Alert, Oriented x3 Psychological: Normal affect Diagnostic/Tx/Re-eval Laboratory Results 07/03/20 13:35 Sodium 136 Potassium 4.6 Chloride 104 Carbon Dioxide 29.0 Anion Gap 3 L BUN 14 Creatinine 1.29 H Estim Creat Clear Calc 40.70 Est GFR (MDRD) Af Amer 53 L Est GFR (MDRD) Non-Af 44 L BUN/Creatinine Ratio 10.9 Glucose 236 H Calcium 9.6 - Medical Decision Making Patient was initially given a dose of IV Phenergan as she had already taken Zofran and Haldol at home. On repeat evaluation she reported only minimal improvement and see that she was having increased back and leg pain and was due for her normal [place]. She was given her dose of p.o. Haldol as well as a tab of [place]. At this time she was able to keep the Haldol down and on repeat evaluation does report improvement in her symptoms. She states she has plenty of medication at home does not need any refills. She will be discharged home at this time. ED Disposition - Plan for ED Patient: Disposition: Home or Assisted Living Diagnosis: Vomiting Instructions: ED Nausea Vomiting Adult Referrals: Devan Parks MD [Primary Care Provider] - As Needed
[2020-07-03] MEDS: 0.9% Normal Saline 1,000 ML 150 ML IV (13:35)
[2020-07-03] MEDS: proMETHazine 25 MG/ML Syringe 12.5 MG IV (13:35)
[2020-07-03 14:03] LABS: Anion Gap 3 (5-15); BUN 14 mg/dL (7-18); BUN/Creat Ratio 10.9 RATIO (10-20); Calcium,Total 9.6 mg/dL (8.5-10.1); Chloride 104 mmol/L (98-107); Creatinine, Serum 1.29 mg/dL (0.55-1.02); EST Glomerular Filtration Rate 44 mL/min (>60); Est Glom Filt Rate - Afr Amer 53 mL/min (>60); Glucose 236 mg/dL (74-106); Potassium 4.6 mmol/L (3.5-5.1); Sodium Level 136 mmol/L (136-145)
[2020-07-03] MEDS: Haloperidol 1 MG Tablet 0.5 MG PO (14:57)
[2020-07-03] MEDS: HYDROcodone Bitartrate/Apap 5/325 Tablet PO (14:57)
--- NOTE | 2020-07-03 15:13 | ED.RN ---
lab remains at bedside attempting to get blood
[2020-07-03 15:14] VITALS: BP 165/89; PULSE 90; RESP 18; O2SAT 97
--- OUTSIDE RECORDS SUMMARY | 2020-08-10 05:28 | XMS RPT_ITS | CCD ---
:1955 External Reference #:[id number] Author Organization [facility] Care Team Providers Name Role Phone NELSON [...] Unavailable Unavailable SHAHEEN (RN) Unavailable Unavailable [facility] Clinical [facility] Attending Unavailable Rui Parks Primary Care Provider Allergies Reported Allergen Reaction(s) Severity Date of Location Onset ciprofloxacin Rash Unknown, 06-10-2013 - [place] [facility] Translations: [ Moderate Other [place] CIPROFLOXACIN, Repository CIPROFLOXACIN, CIPROFLOXACIN] cyclobenzaprine Rash Unknown, 06-10-2013 - [place] [facility] Translations: [ Moderate Other [place] CYCLOBENZAPRINE, Repository CYCLOBENZAPRINE, CYCLOBENZAPRINE] ketorolac Translations: Other: See Unknown, High 03-22-2006 - [facility] [ KETOROLAC, KETOROLAC, Comments Ot r [place] KETOROLAC] Repository metFORMIN Translations: Other: See 06-28-2017 - [facility] [ METFORMIN, METFORMIN, Comments Ot r [place] METFORMIN] Repository Sulfamethoxazole / Hives Unknown, High 07-31-2017 - [facility] Trimethoprim [facility] [place] Translations: [ Repository SULFAMETHOXAZOLE-TRIMET HOPRIM] OTHER Translations: [ 05-27-2007 - [facility] OTHER, OTHER, OTHER] Other C [place] Repository Medications Medication Name Sig Date Prescriber Location Allopurinol allopurinol (ZYLOPRIM) Ccf Provider [facility] 100 mg tablet Take 100 Provider (4419 5) mg by mouth once daily. 0 Active Comment: Take 100 mg by mouth once da jeffy. Aspirin aspirin, enteric coated Ccf Provider [facility] (55419) (ASPIRIN, ENTERIC COATED) Provider 81 mg EC tablet Take 81 mg by mouth once daily. 0 Active Comment: Take 81 mg by mouth once [place]. Haloperidol haloperidol (HALDOL) 0.5 Ccf Provider [facility] mg tablet Take 0.5 mg by Provider (46 195) mouth twice daily. 0 Active Comment: Take 0.5 mg by mouth twice d aily. HYDROCODONE HYDROCODONE [facility]cf Provider [facility] BIT/ACETAMINOPHEN BIT/ACETAMINOPHEN Provider (5249 5) (VICODIN ORAL) (VICODIN ORAL) Take by mouth. 0 Active Comment: Take by mouth. insulin degludec INSULIN DEGLUDEC (TRESIBA Ccf Provide r [facility] FLEXTOUCH U-100 Provider (65289) SUBCUTANEOUS) Inject 120 mg subcutaneously once daily. 0 Active Comment: Inject 120 mg subcutaneously once daily. lamoTRIgine lamoTRIgine (LAMICTAL) 100 [facility] Provider C [facility] mg tablet Take 100 mg by Provider (33 304) mouth twice daily. 0 Active Comment: Take 100 mg by mouth twice d aily. levothyroxine Levothyroxine 50 mcg cap [facility]cf Provider [facility] Take by mouth once daily. Provider (1 1883) 0 Active Comment: Take by mouth once daily. Methadone methadone (DOLOPHINE) 5 mg Ccf Provider C [facility] (49371) tablet Take 10 mg by mouth Provider once daily. At bedtime 0 Active Comment: Take 10 mg by mouth once [place]. At bedtime montelukast montelukast (SINGULAIR) 10 [facility] Provider C [facility] mg tablet Take 10 mg by Provider (452 95) mouth daily at bedtime. 0 Active Comment: Take 10 mg by mouth daily at bedtime. Morphine morphine IR 15 mg tablet [facility] Provider [facility] (83313) Take 15 mg by mouth every Provider 4 hours as needed. 0 Active Comment: Take 15 mg by mouth every 4 hours as needed. naloxegol naloxegol (MOVANTIK) 25 mg Ccf Provider C [facility] (81562) tablet Take 25 mg by mouth Provider once daily. 0 Active Comment: Take 25 mg by mouth once [place]. Omeprazole Omeprazole 40 mg capsule Ccf Provider [facility] (22509) Take 40 mg by mouth once Provider daily. 0 Active Comment: Take 40 mg by mouth once [place]. Ondansetron ondansetron orally 03-03-2018 [facility] disintegrating (ZOFRAN [facility] (4 8346) ODT) 8 mg disintegrating tablet Take 1 tablet by mouth every 8 hours as needed. 90 tablet 6 03/03/2018 Active Comment: Take 1 tablet by mouth every 8 hours as needed. pregabalin pregabalin (LYRICA) 75 mg Ccf Provider [facility] (15255) capsule Take 150 mg by Provider mouth twice daily. 0 Active Comment: Take 150 mg by mouth twice d aily. Promethazine promethazine (PHENERGAN) 12-18-2017 [facility] 25 mg tablet Take 1 (35048) tablet by mouth every 8 hours as needed (for nausea). 90 tablet 6 12/18/2017 Active promethazine (PHENERGAN) 25 mg tablet Take 25 Cc [facility] (66448) mg by mouth three times daily. 0 Active Comment: Take 25 mg by mouth three ti mes daily. Take 1 tablet by mouth every 8 hours as needed (for nausea). rOPINIRole rOPINIRole 1 mg tablet Ccf Provider [facility] [place] (11272) Take 1 mg by mouth once Provider daily. 0 Active Comment: Take 1 mg by mouth once alicia y. Sertraline sertraline (ZOLOFT) 100 [facility]cf Provider [facility] (32013) mg tablet Take 100 mg by Provider mouth once daily. 0 Active Comment: Take 100 mg by mouth once da jeffy. Simvastatin simvastatin 40 mg tablet [facility] Provider [facility] Take 40 mg by mouth daily Provider (4 7573) at bedtime. 0 Active Comment: Take 40 mg by mouth daily at bedtime. valsartan valsartan (DIOVAN) 80 mg [facility] Provider [facility] (22418) tablet Take 80 mg by Provider mouth once daily. 0 Active Comment: Take 80 mg by mouth once scotty ly. Problems Active Problems Category Problem Name Status Date Location Unclassified Active 08-31-2018 - [facility] [place] (92949) Unclassified Unknown / UNK(Unknown) Active 07-19-2017 - [facility] (57830) Past or Other Problems Category Problem Name Status Date Location Nausea and vomiting Nausea with vomiting, Completed 02-17-2015 - [facility] (77808) Other disorders of Gastroparesis Completed 07-31-2017 - [facility] stomach and duodenum [facility] (21402) Other gastrointestinal Diarrhea Completed 05-27-2007 - [facility] disorders (71511) Other nervous system Other disorders of Completed 12-31-2017 - C [facility] disorders nervous system [place] (00 000) Tuberculosis Nodular tuberculosis Com[facility] (57210[facility] Results Result Name Value Range Unit Interpretation Flag Date Location vi on 2020-07-28 Vit. D 25-Hydroxy 25.6 ng/mL Normal 07-28-2020 A Replaced by [facility] ([place] (38915) Comment: Result Comment: Interpretive Values Based on Total 25(OH)D: Severe Deficiency <20 ng/mL Mild to Moderate Deficiency 20-30 ng/mL [facility] Levels 30-100 ng/mL Toxicity Possible >100 ng/mL Performed By: #### TSH, CMP, LIPID, VIDH, A1C, GFR #### [address] [address] rfp on 2020-07-28 Albumin [Mass/Vol] 3.3 3.4-4.8 G/dL Low 07-28-2020 [facility] ([place]) (10201) Comment: Performed By: #### TSH, CMP, LIPID, VIDH, A1C, GFR #### [place] [address] [place] [address] Calcium [Mass/Vol] 8.9 8.4-10.2 mg/dL Normal 07-28-2020 [facility] ([place]) (0000 0) Comment: Performed By: #### TSH, CMP, LIPID, VIDH, A1C, GFR #### [address] [address] Chloride [Moles/Vol] 104 98-107 mmol/L Normal 0 [facility] ([place]) (0000 0) Comment: Performed By: #### TSH, CMP, LIPID, VIDH, A1C, GFR #### [address] [address] CO2 [Moles/Vol] 28 23-31 mmol/L Normal 07-28-2020 [facility]) (22996) Comment: Performed By: #### TSH, CMP, LIPID, VIDH, A1C, GFR #### [address] [address] Creatinine [Mass/Vol] 1.19 0.55-1.02 mg/dL High 07-28-20 20 [facility] ([place]) (0000 0) Comment: Performed By: #### TSH, CMP, LIPID, VIDH, A1C, GFR #### [address] [address] Electrolyte Balance 10.0 mEq/L Normal 07-28-2020 [facility]) (02587) Comment: Performed By: #### TSH, CMP, LIPID, VIDH, A1C, GFR #### [address] [address] Glucose [Mass/Vol] 241 80-115 mg/dL High 07-28-2020 [facility] ([place] (72684) Comment: Performed By: #### TSH, CMP, LIPID, VIDH, A1C, GFR #### [address] [address] Phosphate [Mass/Vol] 3.3 2.3-4.1 mg/dL Normal 0 [facility] ([place]) (0000 0) Comment: Performed By: #### TSH, CMP, LIPID, VIDH, A1C, GFR #### [address] [address] Potassium [Moles/Vol] 4.1 3.5-5.1 mmol/L Normal 07-28-20 20 [facility]) (0000 0) Comment: Performed By: #### TSH, CMP, LIPID, VIDH, A1C, GFR #### [address] [address] Sodium [Moles/Vol] 142 136-145 mmol/L Normal 07-28-2020 [facility] ([place]) (0000 0) Comment: Performed By: #### TSH, CMP, LIPID, VIDH, A1C, GFR #### [facility] [address] [place] [address] Urea nitrogen [Mass/Vol] 14 7-18 mg/dL Normal 07-28 [facility]) (0000 0) Comment: Performed By: #### TSH, CMP, LIPID, VIDH, A1C, GFR #### [facility] [address] [place] [address] Urea nitrogen/Creatinine [Mass 12 7-27 ratio Normal 07-28-2020 [facility]] [facility]) (08557) Comment: Performed By: #### TSH, CMP, LIPID, VIDH, A1C, GFR #### [facility] [address] [place] [address] pth on 2020-07-28 PTH, Intact 154.4 18.5-88.0 pg/mL High 07-28-2020 [facility]) (04624) Comment: Performed By: #### TSH, CMP, LIPID, VIDH, A1C, GFR #### [facility] [address] [place] [address] ma mammogram screening bilateral w/ramo on 2020-07-28 MA MAMMOGRAM ORIGINAL Normal 07-28-2020 [facility] SCREENING FROM: [facility]) BILATERAL W/RAMO [facility] (74867) [address], [place] [address] PROCEDURE FOR: CRYSTAL CRAMER [address] [place] [address] Home: PID#: [id number] Exam#: [id number] : 1955 Age: 64 TO: [place], [place] [address] Fax: NO FAX #[phone] BILATERAL DIGITAL SCREENING MAMMOGRAM 3D/2D WITH CAD WITH MEDIOLATERAL OBLIQUE CRANIOCAUDAL: 07/28/2020 Comparison is made to exams dated: 11/07/2016 mammogram and 11/29/2014 mammogram - [facility]. The tissue of both breasts is predominately fatty. Current study was also evaluated with a Computer Aided Detection (CAD) system. No significant masses, calci fications, or other findings are seen in either breast. There has been no significant interval change. IMPRESSION: NEGATIVE There is no mammographic yuliet dence of malignancy. A 1 year screening mammogram is recommended.(07/29/2021) MARGARET LEONG MD da/mile:07/29/2020 10:10:09 [employer] Offbearer(s): MIO FLORES, RT(R) (M), [facility] letter sent: Normal BI-RADS 1&2 Mammogram BI-RADS: 1 Negative cbc on 2020-07-28 Erythrocyte distribution 14.9 11.5-14.5 % High 07-28 [facility] width (RBC) [Ratio] ([place]) (98486) Comment: Performed By: #### TSH, CMP, LIPID, VIDH, A1C, GFR #### [address] [address] Hematocrit (Bld) [Volume 39.2 37.0-47.0 % Normal 07-28 [facility] fraction] ([place]) (0000 0) Comment: Performed By: #### TSH, CMP, LIPID, VIDH, A1C, GFR #### [address] [address] Hemoglobin (Bld) 12.8 12.0-16.0 G/dL Normal 07-28-2020 [facility] [Mass/Vol] [facility] ([place] (85174) Comment: Performed By: #### TSH, CMP, LIPID, VIDH, A1C, GFR #### [address] [address] MCH (RBC) [Entitic mass] 28.2 27.0-31.2 pg Normal 07-28 [facility] ([place]) (0000 0) Comment: Performed By: #### TSH, CMP, LIPID, VIDH, A1C, GFR #### [address] [address] MCHC (RBC) [Mass/Vol] 32.7 33.0-37.0 G/dL Low 07-28-20 20 [facility] ([place]) (0000 0) Comment: Performed By: #### TSH, CMP, LIPID, VIDH, A1C, GFR #### [address] [address] MCV (RBC) [Entitic vol] 86.1 80.0-94.0 fL Normal 2019 [facility] ([place]) (0000 0) Comment: Performed By: #### TSH, CMP, LIPID, VIDH, A1C, GFR #### [address] [address] Platelet mean volume 9.2 7.4-10.4 fL Normal 0 [facility] (Bld) [Entitic vol] ([place]) (20178) Comment: Performed By: #### TSH, CMP, LIPID, VIDH, A1C, GFR #### [address] [address] Platelets (Bld) [#/Vol] 281 130-400 10 3/mcL Normal 2019 [facility] ([place]) (01137) Comment: Performed By: #### TSH, CMP, LIPID, VIDH, A1C, GFR #### [address] [address] RBC (Bld) [#/Vol] 4.55 4.20-5.40 10 6/mcL Normal 07-28-2020 [facility] ([place]) (0000 0) Comment: Performed By: #### TSH, CMP, LIPID, VIDH, A1C, GFR #### [address] [address] WBC (Bld) [#/Vol] 11.70 4.60-10.80 10 3/mcL High 07-28-2020 [facility] ([place]) (0000 0) Comment: Performed By: #### TSH, CMP, LIPID, VIDH, A1C, GFR #### [address] [address] bmp on 2020-07-28 Calcium [Mass/Vol] 8.9 8.4-10.2 mg/dL Normal 07-28-2020 [facility] ([place]) (0000 0) Comment: Performed By: #### TSH, CMP, LIPID, VIDH, A1C, GFR #### [address] [address] Chloride [Moles/Vol] 104 98-107 mmol/L Normal 0 [facility] ([place]) (0000 0) Comment: Performed By: #### TSH, CMP, LIPID, VIDH, A1C, GFR #### [address] [address] CO2 [Moles/Vol] 27 23-31 mmol/L Normal 07-28-2020 [facility]) (27068) Comment: Performed By: #### TSH, CMP, LIPID, VIDH, A1C, GFR #### [address] [address] Creatinine [Mass/Vol] 1.15 0.55-1.02 mg/dL High 07-28-20 20 [facility] ([place]) (0000 0) Comment: Performed By: #### TSH, CMP, LIPID, VIDH, A1C, GFR #### [address] [address] Electrolyte Balance 11.0 mEq/L Normal 07-28-2020 [facility] ([place] (86877) Comment: Performed By: #### TSH, CMP, LIPID, VIDH, A1C, GFR #### [address] [address] Glucose [Mass/Vol] 240 80-115 mg/dL High 07-28-2020 [facility] ([place] (14867) Comment: Performed By: #### TSH, CMP, LIPID, VIDH, A1C, GFR #### [address] [address] Potassium [Moles/Vol] 4.0 3.5-5.1 mmol/L Normal 07-28-20 [facility] ([place]) (0000 0) Comment: Performed By: #### TSH, CMP, LIPID, VIDH, A1C, GFR #### [address] [address] Sodium [Moles/Vol] 142 136-145 mmol/L Normal 07-28-2020 [facility] ([place]) (0000 0) Comment: Performed By: #### TSH, CMP, LIPID, VIDH, A1C, GFR #### [facility] [address] [place] [address] Urea nitrogen [Mass/Vol] 13 7-18 mg/dL Normal 07-28 [facility] ([place]) (0000 0) Comment: Performed By: #### TSH, CMP, LIPID, VIDH, A1C, GFR #### [facility] [address] [place] [address] Urea nitrogen/Creatinine [Mass 11 7-27 ratio Normal 07-28-2020 [facility]] [facility] ([place]) (18005) Comment: Performed By: #### TSH, CMP, LIPID, VIDH, A1C, GFR #### [facility] [address] [place] [address] .neuabs on Neutrophils (Bld) 8.50 2.85-6.16 10 3/mcL High 07-28-2020 [facility] [#/Vol] [facility] ([place] (32269) Comment: Performed By: #### TSH, CMP, LIPID, VIDH, A1C, GFR #### [facility] [address] [place] [address] .gfr on 2020-07-28 GFR 57 ml/min/1.73sqm Normal 07-19 [facility] ([place]) (0000 0) Comment: Result Comment: GFR Population mean for Afri can [place]ian, Non- Americans Ages 20-29 = 116 mL/min/1.73 sq.m. Ages 30-39 = 107 mL/min/1.73 sq.m. Ages 40-49 = 99 mL/min/1.73 sq.m. Ages 50-59 = 93 mL/min/1.73 sq.m. Ages 60-69 = 85 mL/min/1.73 sq.m. Ages 70+ = 75 mL/min/1.73 sq .m. Chronic Kidney Disease: Less than 60 mL/min/1.73 square meters End Stage Renal Disease: Les s than 15 mL/min/1.73 square meters Performed By: #### TSH, CMP, LIPID, VIDH, A1C, GFR #### [address] [address] GFR Non- 47 ml/min/1.73sqm Normal 07-28-2020 [facility] ([place]) (07590) Comment: Result Comment: GFR Population mean for Afri can [place]ian, Non- Americans Ages 20-29 = 116 mL/min/1.73 sq.m. Ages 30-39 = 107 mL/min/1.73 sq.m. Ages 40-49 = 99 mL/min/1.73 sq.m. Ages 50-59 = 93 mL/min/1.73 sq.m. Ages 60-69 = 85 mL/min/1.73 sq.m. Ages 70+ = 75 mL/min/1.73 sq .m. Chronic Kidney Disease: Less than 60 mL/min/1.73 square meters End Stage Renal Disease: Les s than 15 mL/min/1.73 square meters Performed By: #### TSH, CMP, LIPID, VIDH, A1C, GFR #### [address] [address] GFR Non- 46 ml/min/1.73sqm Normal 07-28-2020 [facility] ([place]) (01796) Comment: Result Comment: GFR Population mean for Afri can [place]ian, Non- Americans Ages 20-29 = 116 mL/min/1.73 sq.m. Ages 30-39 = 107 mL/min/1.73 sq.m. Ages 40-49 = 99 mL/min/1.73 sq.m. Ages 50-59 = 93 mL/min/1.73 sq.m. Ages 60-69 = 85 mL/min/1.73 sq.m. Ages 70+ = 75 mL/min/1.73 sq .m. Chronic Kidney Disease: Less than 60 mL/min/1.73 square meters End Stage Renal Disease: Les s than 15 mL/min/1.73 square meters Performed By: #### TSH, CMP, LIPID, VIDH, A1C, GFR #### [address] [address] GFR 55 ml/min/1.73sqm Normal 07-19 0-2019 [facility] ([place]) (0000 0) Comment: Result Comment: GFR Population mean for Afri can [place]ian, Non- Americans Ages 20-29 = 116 mL/min/1.73 sq.m. Ages 30-39 = 107 mL/min/1.73 sq.m. Ages 40-49 = 99 mL/min/1.73 sq.m. Ages 50-59 = 93 mL/min/1.73 sq.m. Ages 60-69 = 85 mL/min/1.73 sq.m. Ages 70+ = 75 mL/min/1.73 sq .m. Chronic Kidney Disease: Less than 60 mL/min/1.73 square meters End Stage Renal Disease: Les s than 15 mL/min/1.73 square meters Performed By: #### TSH, CMP, LIPID, VIDH, A1C, GFR #### [address] [address] .auto diff on 07-28 Ammonia (P) [Mass/Vol] 0.70 0.15-1.00 10 3/mcL Normal 020 [facility] ([place]) (21251) Comment: Performed By: #### TSH, CMP, LIPID, VIDH, A1C, GFR #### [address] [address] Basophils (Bld) 0.10 0.00-0.19 10 3/mcL Normal 07-28-2020 [facility] [#/Vol] [facility] ([place] (08622) Comment: Performed By: #### TSH, CMP, LIPID, VIDH, A1C, GFR #### [address] [address] Basophils/100 WBC (Bld) 0.6 0.0-2.5 % Normal 2019 [facility] ([place]) (0000 0) Comment: Performed By: #### TSH, CMP, LIPID, VIDH, A1C, GFR #### [address] [address] Eosinophils (Bld) 0.40 0.00-0.40 10 3/mcL Normal 07-28-2020 [facility] [#/Vol] [facility] ([place]) (84044) Comment: Performed By: #### TSH, CMP, LIPID, VIDH, A1C, GFR #### [address] [address] Eosinophils/100 WBC (Bld) 3.5 0.0-7.0 % Normal 07-19 [facility] ([place]) (0000 0) Comment: Performed By: #### TSH, CMP, LIPID, VIDH, A1C, GFR #### [address] [address] Lymphocytes (Bld) 2.00 0.77-3.85 10 3/mcL Normal 07-28-2020 [facility] [#/Vol] [facility] ([place] (60759) Comment: Performed By: #### TSH, CMP, LIPID, VIDH, A1C, GFR #### [address] [address] Lymphocytes/100 WBC (Bld) 17.1 10.0-50.0 % Normal 07-19 [facility] ([place]) (52960) Comment: Performed By: #### TSH, CMP, LIPID, VIDH, A1C, GFR #### [address] [address] Monocytes/100 WBC (Bld) 6.0 1.7-13.0 % Normal 2019 [facility] ([place]) (0000 0) Comment: Performed By: #### TSH, CMP, LIPID, VIDH, A1C, GFR #### [address] [address] Neutrophils/100 WBC (Bld) 72.8 37.0-80.0 % Normal 07-19 [facility] ([place]) (57621) Comment: Performed By: #### TSH, CMP, LIPID, VIDH, A1C, GFR #### [address] [address] xr chest 2 views on 2020-07-06 XR CHEST 2 VIEWS ORIGINAL Normal 07-06-2020 [facility] XR CHEST 2 VIEWS, 07/05/2020 4:07 PM [facility] ([place]) (75015) INDICATION: SOB COMPARISON: May 2019 FINDINGS: The study is mildl y limited by habitus. The lungs are otherwise clear. The cardiac silhouette is within normal size limits. The pulmonary vasculature is unremarkable in appearance. IMPRESSION: Clear lungs. Interpreted By: Cezar Carmona MD Preliminary Report By: Cezar Carmona MD Electronically Signed By: Cezar Carmona MD Dictated Date: 07/06/2020 8:56:47 AM Prelim Date: 07/06/2020 8:56:47 AM Sign Date: 07/06/2020 8:57:24 AM Ordering Provider:You Parks cmp on 2020-05-19 Albumin [Mass/Vol] 3.3 3.4-4.8 G/dL Low 05-19-2020 [facility] ([place]) (57547) Comment: Performed By: #### TSH, CMP, LIPID, VIDH, A1C, GFR #### [address] [address] Albumin/Globulin [Mass ratio] 0.8 1.1-2.5 ratio Low 05-19-2020 [facility] ([place]) (72446) Comment: Performed By: #### TSH, CMP, LIPID, VIDH, A1C, GFR #### [address] [address] ALP [Catalytic activity/Vol] 194 40-135 U/L High 1 [facility] ([place]) (0000 0) Comment: Performed By: #### TSH, CMP, LIPID, VIDH, A1C, GFR #### [address] [address] ALT [Catalytic activity/Vol] 27 14-59 U/L Normal 1 [facility] ([place]) (0000 0) Comment: Performed By: #### TSH, CMP, LIPID, VIDH, A1C, GFR #### [address] [address] AST [Catalytic activity/Vol] 18 10-40 U/L Normal 1 [facility] ([place]) (0000 0) Comment: Performed By: #### TSH, CMP, LIPID, VIDH, A1C, GFR #### [address] [address] Bili Total 0.7 0.2-1.0 mg/dL Normal 05-19-2020 [facility] ([place]) (22451) Comment: Result Comment: Use of this assay is not recommended for patients undergoing treatment with eltrombopag d ue to the potential for falsely elevated results. Performed By: #### TSH, CMP, LIPID, VIDH, A1C, GFR #### [address] [address] Calcium [Mass/Vol] 9.5 8.4-10.2 mg/dL Normal 05-19-2020 [facility] ([place]) (0000 0) Comment: Performed By: #### TSH, CMP, LIPID, VIDH, A1C, GFR #### [address] [address] Chloride [Moles/Vol] 99 98-107 mmol/L Normal 0 [facility] ([place]) (0000 0) Comment: Performed By: #### TSH, CMP, LIPID, VIDH, A1C, GFR #### [address] [address] CO2 [Moles/Vol] 27 23-31 mmol/L Normal 05-19-2020 [facility]) (03051) Comment: Performed By: #### TSH, CMP, LIPID, VIDH, A1C, GFR #### [address] [address] Creatinine [Mass/Vol] 1.21 0.55-1.02 mg/dL High 05-19-20 20 [facility] ([place]) (0000 0) Comment: Performed By: #### TSH, CMP, LIPID, VIDH, A1C, GFR #### [address] [address] Electrolyte Balance 9.0 mEq/L Normal 05-19-2020 [facility] ([place]) (02848) Comment: Performed By: #### TSH, CMP, LIPID, VIDH, A1C, GFR #### [address] [address] Globulin (S) [Mass/Vol] 3.9 G/dL Normal 2019 [facility] ([place]) (47675) Comment: Performed By: #### TSH, CMP, LIPID, VIDH, A1C, GFR #### [address] [address] Glucose [Mass/Vol] 311 80-115 mg/dL High 05-19-2020 [facility] ([place]) (98398) Comment: Performed By: #### TSH, CMP, LIPID, VIDH, A1C, GFR #### [address] [address] Potassium [Moles/Vol] 4.8 3.5-5.1 mmol/L Normal 05-19-20 [facility] ([place]) (0000 0) Comment: Performed By: #### TSH, CMP, LIPID, VIDH, A1C, GFR #### [address] [address] Protein [Mass/Vol] 7.2 6.4-8.2 G/dL Normal 05-19-2020 [facility] ([place] (16079) Comment: Performed By: #### TSH, CMP, LIPID, VIDH, A1C, GFR #### [address] [address] Sodium [Moles/Vol] 135 136-145 mmol/L Low 05-19-2020 [facility] ([place] (97798) Comment: Performed By: #### TSH, CMP, LIPID, VIDH, A1C, GFR #### [address] [address] Urea nitrogen [Mass/Vol] 18 7-18 mg/dL Normal 05-19 [facility] ([place]) (0000 0) Comment: Performed By: #### TSH, CMP, LIPID, VIDH, A1C, GFR #### [address] [address] Urea nitrogen/Creatinine [Mass 15 7-27 ratio Normal 05-19-2020 [facility]] [facility] ([place] (39703) Comment: Performed By: #### TSH, CMP, LIPID, VIDH, A1C, GFR #### [address] [address] a1c on 2020-05-19 HbA1c (Bld) [Mass fraction] 9.2 4.3-6.4 % High [facility] ([place]) (0000 0) Comment: Performed By: #### TSH, CMP, LIPID, VIDH, A1C, GFR #### [address] [address] .gfr on 2020-05-19 GFR 54 ml/min/1.73sqm Normal [facility] ([place]) (0000 0) Comment: Result Comment: GFR Population mean for Afri can [place]ian, Non- Americans Ages 20-29 = 116 mL/min/1.73 sq.m. Ages 30-39 = 107 mL/min/1.73 sq.m. Ages 40-49 = 99 mL/min/1.73 sq.m. Ages 50-59 = 93 mL/min/1.73 sq.m. Ages 60-69 = 85 mL/min/1.73 sq.m. Ages 70+ = 75 mL/min/1.73 sq .m. Chronic Kidney Disease: Less than 60 mL/min/1.73 square meters End Stage Renal Disease: Les s than 15 mL/min/1.73 square meters Performed By: #### TSH, CMP, LIPID, VIDH, A1C, GFR #### [address] [address] GFR Non- 45 ml/min/1.73sqm Normal 05-19-2020 [facility] ([place]) (02056) Comment: Result Comment: GFR Population mean for Afri can [place], Non- Americans Ages 20-29 = 116 mL/min/1.73 sq.m. Ages 30-39 = 107 mL/min/1.73 sq.m. Ages 40-49 = 99 mL/min/1.73 sq.m. Ages 50-59 = 93 mL/min/1.73 sq.m. Ages 60-69 = 85 mL/min/1.73 sq.m. Ages 70+ = 75 mL/min/1.73 sq .m. Chronic Kidney Disease: Less than 60 mL/min/1.73 square meters End Stage Renal Disease: Les s than 15 mL/min/1.73 square meters Performed By: #### TSH, CMP, LIPID, VIDH, A1C, GFR #### [address] [id number] bmp on 2020-03-21 Calcium [Mass/Vol] 9.6 8.4-10.2 mg/dL Normal 03-21-2020 [facility] ([place]) (0000 0) Comment: Performed By: #### TSH, CMP, LIPID, VIDH, A1C, GFR #### [address] [address] Chloride [Moles/Vol] 96 98-107 mmol/L Low 0 [facility] ([place] ([id number]) Comment: Performed By: #### TSH, CMP, LIPID, VIDH, A1C, GFR #### [address] [address] CO2 [Moles/Vol] 27 23-31 mmol/L Normal 03-21-2020 [facility] [place] (67505) Comment: Performed By: #### TSH, CMP, LIPID, VIDH, A1C, GFR #### [address] [address] Creatinine [Mass/Vol] 1.42 0.55-1.02 mg/dL High 03-21-20 20 [facility] ([place]) (0000 0) Comment: Performed By: #### TSH, CMP, LIPID, VIDH, A1C, GFR #### [address] [address] Electrolyte Balance 11.0 mEq/L Normal 03-21-2020 [facility] ([place] (46979) Comment: Performed By: #### TSH, CMP, LIPID, VIDH, A1C, GFR #### [address] [address] Glucose [Mass/Vol] 397 80-115 mg/dL High 03-21-2020 [facility] ([place] ([id number]) Comment: Performed By: #### TSH, CMP, LIPID, VIDH, A1C, GFR #### [address] [address] Potassium [Moles/Vol] 4.8 3.5-5.1 mmol/L Normal 03-21-20 20 [facility] ([place]) (0000 0) Comment: Performed By: #### TSH, CMP, LIPID, VIDH, A1C, GFR #### [place] [address] [place] [address] Sodium [Moles/Vol] 134 136-145 mmol/L Low 03-21-2020 [facility] ([place] (07447) Comment: Performed By: #### TSH, CMP, LIPID, VIDH, A1C, GFR #### [address] [address] Urea nitrogen [Mass/Vol] 18 7-18 mg/dL Normal 03-21 [facility] ([place]) (0000 0) Comment: Performed By: #### TSH, CMP, LIPID, VIDH, A1C, GFR #### [address] [address] Urea nitrogen/Creatinine [Mass 13 7-27 ratio Normal 03-21-2020 [facility]] [facility] [place] ([place] ([id number]) Comment: Performed By: #### TSH, CMP, LIPID, VIDH, A1C, GFR #### [address] [address] .gfr on 2020-03-21 GFR 45 ml/min/1.73sqm Normal -0 [facility] ([place]) (0000 0) Comment: Result Comment: GFR Population mean for Afri can [place]ian, Non- Americans Ages 20-29 = 116 mL/min/1.73 sq.m. Ages 30-39 = 107 mL/min/1.73 sq.m. Ages 40-49 = 99 mL/min/1.73 sq.m. Ages 50-59 = 93 mL/min/1.73 sq.m. Ages 60-69 = 85 mL/min/1.73 sq.m. Ages 70+ = 75 mL/min/1.73 sq .m. Chronic Kidney Disease: Less than 60 mL/min/1.73 square meters End Stage Renal Disease: Les s than 15 mL/min/1.73 square meters Performed By: #### TSH, CMP, LIPID, VIDH, A1C, GFR #### [address] [address] GFR Non- 37 ml/min/1.73sqm Normal 03-21-2020 [facility] ([place]) ([id number]) Comment: Result Comment: GFR Population mean for Afri can [place], Non- Americans Ages 20-29 = 116 mL/min/1.73 sq.m. Ages 30-39 = 107 mL/min/1.73 sq.m. Ages 40-49 = 99 mL/min/1.73 sq.m. Ages 50-59 = 93 mL/min/1.73 sq.m. Ages 60-69 = 85 mL/min/1.73 sq.m. Ages 70+ = 75 mL/min/1.73 sq .m. Chronic Kidney Disease: Less than 60 mL/min/1.73 square meters End Stage Renal Disease: Les s than 15 mL/min/1.73 square meters Performed By: #### TSH, CMP, LIPID, VIDH, A1C, GFR #### [place] [address] nm bone imaging whole body on 2020-03-01 NM BONE IMAGING ORIGINAL Normal 03-01-2020 [facility] WHOLE BODY EXAM: NM BONE IMAGING WHOLE BODY 02/29/2020 1:37 PM [facility] [place] ([place]) ([id number]) HISTORY: LEFT posterior late ral ribs/chest wall [...] the resident's findings and interpretation. Interpreted By: Leah ,Audubon DO Preliminary Report By: Belkis Henriquez DO Electronically Signed By: Tyrese Lynn DO Dictated Date: 02/29/2020 1:55:08 PM Prelim Date: 02/29/2020 2:00:50 PM Sign Date: 03/01/2020 1:36:16 PM Ordering Provider:You lund on 2020-02-26 CUR . Normal 02-26-2020 [facility] MICRO - Microbiology [facility] [place] ([place]) ([id number]) PROCEDURE: Urine Culture [*1] SOURCE: Urine, Clean Catch BODY SITE: COLLECTED DATE/TIME: 02/24/2020 22:39 EDT RECEIVED DATE/TIME: 02/25/2020 15:49 EDT START DATE/TIME: 02/25/2020 15:49 EDT FREE TEXT SOURCE: FINAL REPORTS Final Report [] Verified Date/Time/Personnel: 02/26/2020 14:46 EDT 10,000 - 50,000 cfu/ml Multiple bacterial morphotypes present. Probable Contamination. Suggest recollection if clinically indicated. Performing Locations *1: This test was performed at: [address], [address] , [place] Comment: Performed By: #### TSH, CMP, LIPID, VIDH, A1C, GFR #### [address] [address] ua on 2020-02-25 Color (U) Yellow Normal 02-25-2020 [facility] ([place]) ([id number]) Comment: Performed By: #### TSH, CMP, LIPID, VIDH, A1C, GFR #### [address] [address] Glucose (U) [Mass/Vol] 500 Negative mg/dL Abnormal 020 [facility] ([place]) ([id number]) Comment: Performed By: #### TSH, CMP, LIPID, VIDH, A1C, GFR #### [address] [address] Ketones Ql (U) Negative Negative Normal 02-25-2020 [facility] ([place]) (22653) Comment: Performed By: #### TSH, CMP, LIPID, VIDH, A1C, GFR #### [address] [address] UA Appear Clear Clear Normal 02-25-2020 [facility] ([place] (43081) Comment: Performed By: #### TSH, CMP, LIPID, VIDH, A1C, GFR #### [address] [address] UA Blood Trace Negative Abnormal 02-25-2020 [facility] ([place]) (55862) Comment: Performed By: #### TSH, CMP, LIPID, VIDH, A1C, GFR #### [address] [address] UA Leuk Est Negative Negative Normal 02-25-2020 [facility] ([place]) (00851) Comment: Performed By: #### TSH, CMP, LIPID, VIDH, A1C, GFR #### [address] [address] UA Nitrite Negative Negative Normal 02-25-2020 [facility] ([place]) (60548) Comment: Performed By: #### TSH, CMP, LIPID, VIDH, A1C, GFR #### [address] [address] UA pH 7.0 5.0 - 8.0 Normal 02-25-2020 [facility] ([place] ([id number]) Comment: Performed By: #### TSH, CMP, LIPID, VIDH, A1C, GFR #### [address] [address] UA Protein Trace Negative Normal 02-25-2020 [facility] ([place]) (96311) Comment: Performed By: #### TSH, CMP, LIPID, VIDH, A1C, GFR #### [address] [address] UA Spec Grav 1.020 1.015-1.025 Normal 02-25-2020 [facility] ([place]) (32300) Comment: Performed By: #### TSH, CMP, LIPID, VIDH, A1C, GFR #### [address] [address] UA Specimen Type Clean Catch Normal 02-25-2020 [facility] ([place]) (00367) Comment: Performed By: #### TSH, CMP, LIPID, VIDH, A1C, GFR #### [address] [address] UA Urobilinogen 0.2 0.2-1.0 E.U./dL Normal 02-25-2020 [facility] ([place]) ([id number]) Comment: Performed By: #### TSH, CMP, LIPID, VIDH, A1C, GFR #### [address] [address] Urobilinogen Qn (U) Negative Negative Normal 02-25-2020 [facility] ([place]) (0000 0) Comment: Performed By: #### TSH, CMP, LIPID, VIDH, A1C, GFR #### [address] [address] trop on 2020-02-25 Troponin I.cardiac <0.020 0.000-0.040 ng/mL Normal 0 [facility] [Mass/Vol] [facility] [place] ([address]28) Comment: Result Comment: Troponin I r eference range: 0.00-0.040 ng/mL Negative an d non-diagnostic. >0.040 ng/mL Consistent with cardiac damage, increased clinical risk and possibility of myocardial in farction. Serial measurements, a rise & fall in test results, clinical histo ry, appropriate symptoms and/or ECG changes may help assess possibility of TX. *Other non-acute coronary sy ndrome conditions such as CHF, myoc arditis, pulmonary emboli, sepsis and cardiac surgery could result in myoc ardial damage and increased troponi n levels. Performed By: #### TSH, CMP, LIPID, VIDH, A1C, GFR #### [address] [address] phv on 2020-02-25 pH Venous 7.39 7.31-7.41 Normal 02-25-2020 [facility] ([place]) (30794) Comment: Performed By: #### CBC, ANEU , GFR, CMP, PHV, ISIS, LIP, ADIFF #### [address] [address] lip on 2020-02-25 Lipase Level 76 73-393 U/L Normal 02-25-2020 [facility] ([place]) (32748) Comment: Performed By: #### TSH, CMP, LIPID, VIDH, A1C, GFR #### [address] [address] cmp on 2020-02-25 Albumin [Mass/Vol] 3.6 3.4-4.8 G/dL Normal 02-25-2020 [facility] ([place]) (48245) Comment: Performed By: #### TSH, CMP, LIPID, VIDH, A1C, GFR #### [address] [address] Albumin/Globulin [Mass ratio] 1.0 1.1-2.5 ratio Low 02-25-2020 [facility] ([place]) (84478) Comment: Performed By: #### TSH, CMP, LIPID, VIDH, A1C, GFR #### [place] [id number] ALP [Catalytic activity/Vol] 192 40-135 U/L High 0 02-25-2020 [facility] ([place]) (0000 0) Comment: Performed By: #### TSH, CMP, LIPID, VIDH, A1C, GFR #### [address] [address] ALT [Catalytic activity/Vol] 21 10-35 U/L Normal 0 02-25-2020 [facility] ([place]) (0000 0) Comment: Performed By: #### TSH, CMP, LIPID, VIDH, A1C, GFR #### [address] [address] AST [Catalytic activity/Vol] 14 10-40 U/L Normal 0 02-25-2020 [facility] ([place]) (0000 0) Comment: Performed By: #### TSH, CMP, LIPID, VIDH, A1C, GFR #### [address] [address] Bili Total 1.0 0.2-1.0 mg/dL Normal 02-25-2020 [facility] ([place]) (85497) Comment: Result Comment: Use of this assay is not recommended for patients undergoing treatment with eltrombopag d ue to the potential for falsely elevated results. Performed By: #### TSH, CMP, LIPID, VIDH, A1C, GFR #### [address] [address] Calcium [Mass/Vol] 9.6 8.4-10.2 mg/dL Normal 02-25-2020 [facility] ([place]) (0000 0) Comment: Performed By: #### TSH, CMP, LIPID, VIDH, A1C, GFR #### [address] [address] Chloride [Moles/Vol] 97 98-107 mmol/L Low 0 [facility] ([place]) (43944) Comment: Performed By: #### TSH, CMP, LIPID, VIDH, A1C, GFR #### [address] [address] CO2 [Moles/Vol] 34 23-31 mmol/L High 02-25-2020 [facility] [place] (34399) Comment: Performed By: #### TSH, CMP, LIPID, VIDH, A1C, GFR #### [address] [address] Creatinine [Mass/Vol] 1.31 0.55-1.02 mg/dL High 02-25-20 20 [facility] ([place]) (0000 0) Comment: Performed By: #### TSH, CMP, LIPID, VIDH, A1C, GFR #### [address] [address] Electrolyte Balance 4.0 mEq/L Normal 02-25-2020 [facility] ([place]) (14642) Comment: Performed By: #### TSH, CMP, LIPID, VIDH, A1C, GFR #### [address] [address] Globulin (S) [Mass/Vol] 3.6 G/dL Normal 2019 [facility] ([place] (85815) Comment: Performed By: #### TSH, CMP, LIPID, VIDH, A1C, GFR #### [address] [address] Glucose [Mass/Vol] 428 80-115 mg/dL Critically abnormal 0 02-25-2020 [facility] ([place]) (37270) Comment: Performed By: #### TSH, CMP, LIPID, VIDH, A1C, GFR #### [address] [address] Potassium [Moles/Vol] 4.8 3.5-5.1 mmol/L Normal 02-25-20 [facility] ([place]) (0000 0) Comment: Performed By: #### TSH, CMP, LIPID, VIDH, A1C, GFR #### [address] [address] Protein [Mass/Vol] 7.2 6.4-8.2 G/dL Normal 02-25-2020 [facility] ([place]) (03781) Comment: Performed By: #### TSH, CMP, LIPID, VIDH, A1C, GFR #### [address] [address] Sodium [Moles/Vol] 135 136-145 mmol/L Low 02-25-2020 [facility] ([place] (49637) Comment: Performed By: #### TSH, CMP, LIPID, VIDH, A1C, GFR #### [address] [address] Urea nitrogen [Mass/Vol] 17 7-18 mg/dL Normal 02-24 [facility] ([place]) (0000 0) Comment: Performed By: #### TSH, CMP, LIPID, VIDH, A1C, GFR #### [address] [address] Urea nitrogen/Creatinine [Mass 13 7-27 ratio Normal 02-25-2020 [facility]] [facility] [place] ([place] (48292) Comment: Performed By: #### TSH, CMP, LIPID, VIDH, A1C, GFR #### [address] [address] cbc on 2020-02-25 Erythrocyte distribution 14.8 11.5-14.5 % High 02-24 [facility] width (RBC) [Ratio] ([place]) (35802) Comment: Performed By: #### CBC, ANEU , GFR, CMP, PHV, ISIS, LIP, ADIFF #### [address] [address] Hematocrit (Bld) [Volume 40.2 37.0-47.0 % Normal 02-24 [facility] fraction] ([place]) (0000 0) Comment: Performed By: #### CBC, ANEU , GFR, CMP, PHV, ISIS, LIP, ADIFF #### [address] [address] Hemoglobin (Bld) 13.2 12.0-16.0 G/dL Normal 02-25-2020 [facility] [Mass/Vol] [facility] [place] (59749) Comment: Performed By: #### CBC, ANEU , GFR, CMP, PHV, ISIS, LIP, ADIFF #### [address] [address] MCH (RBC) [Entitic mass] 27.7 27.0-31.2 pg Normal 02-24 [facility] ([place]) (0000 0) Comment: Performed By: #### CBC, ANEU , GFR, CMP, PHV, ISIS, LIP, ADIFF #### [address] [address] MCHC (RBC) [Mass/Vol] 32.8 33.0-37.0 G/dL Low 02-25-20 20 [facility] ([place]) (0000 0) Comment: Performed By: #### CBC, ANEU , GFR, CMP, PHV, ISIS, LIP, ADIFF #### [address] [address] MCV (RBC) [Entitic vol] 84.5 80.0-94.0 fL Normal 2019 [facility] ([place]) (0000 0) Comment: Performed By: #### CBC, ANEU , GFR, CMP, PHV, ISIS, LIP, ADIFF #### [address] [address] Platelet mean volume 8.1 7.4-10.4 fL Normal 0 [facility] (Bld) [Entitic vol] ([place]) ([id number]) Comment: Performed By: #### CBC, ANEU , GFR, CMP, PHV, ISIS, LIP, ADIFF #### [address] [address] Platelets (Bld) [#/Vol] 265 130-400 10 3/mcL Normal 2019 [facility] ([place]) (54408) Comment: Performed By: #### CBC, ANEU , GFR, CMP, PHV, ISIS, LIP, ADIFF #### [address] [address] RBC (Bld) [#/Vol] 4.76 4.20-5.40 10 6/mcL Normal 02-25-2020 [facility] ([place]) (0000 0) Comment: Performed By: #### CBC, ANEU , GFR, CMP, PHV, ISIS, LIP, ADIFF #### [address] [address] WBC (Bld) [#/Vol] 11.20 4.60-10.80 10 3/[facility] High 02-25-2020 [facility] ([place]) (0000 0) Comment: Performed By: #### CBC, ANEU , GFR, CMP, PHV, ISIS, LIP, ADIFF #### [address] [address] isis on 2020-02-25 Acetone (s) Negative Negative Normal 02-25-2020 [facility] ([place]) (76867) Comment: Performed By: #### TSH, CMP, LIPID, VIDH, A1C, GFR #### [address] [address] .neuabs on Neutrophils (Bld) 8.50 2.85-6.16 10 3/mcL High 02-25-2020 [facility] [#/Vol] [facility] [place] ([place] (98414) Comment: Performed By: #### CBC, ANEU , GFR, CMP, PHV, ISIS, LIP, ADIFF #### [address] [address] .gfr on 2020-02-25 GFR 49 ml/min/1.73sqm Normal 07-0 [facility] ([place]) (0000 0) Comment: Result Comment: GFR Population mean for Afri can [place], Non- Americans Ages 20-29 = 116 mL/min/1.73 sq.m. Ages 30-39 = 107 mL/min/1.73 sq.m. Ages 40-49 = 99 mL/min/1.73 sq.m. Ages 50-59 = 93 mL/min/1.73 sq.m. Ages 60-69 = 85 mL/min/1.73 sq.m. Ages 70+ = 75 mL/min/1.73 sq .m. Chronic Kidney Disease: Less than 60 mL/min/1.73 square meters End Stage Renal Disease: Les s than 15 mL/min/1.73 square meters Performed By: #### TSH, CMP, LIPID, VIDH, A1C, GFR #### [address] [address] GFR Non- 41 ml/min/1.73sqm Normal 02-25-2020 [facility] ([place]) ([id number]) Comment: Result Comment: GFR Population mean for Afri can [place], Non- Americans Ages 20-29 = 116 mL/min/1.73 sq.m. Ages 30-39 = 107 mL/min/1.73 sq.m. Ages 40-49 = 99 mL/min/1.73 sq.m. Ages 50-59 = 93 mL/min/1.73 sq.m. Ages 60-69 = 85 mL/min/1.73 sq.m. Ages 70+ = 75 mL/min/1.73 sq .m. Chronic Kidney Disease: Less than 60 mL/min/1.73 square meters End Stage Renal Disease: Les s than 15 mL/min/1.73 square meters Performed By: #### TSH, CMP, LIPID, VIDH, A1C, GFR #### [address] [address] .auto diff on 02-24 Ammonia (P) [Mass/Vol] 0.80 0.15-1.00 10 3/mcL Normal 020 [facility] ([place]) ([id number]) Comment: Performed By: #### CBC, ANEU , GFR, CMP, PHV, ISIS, LIP, ADIFF #### [address] [address] Basophils (Bld) 0.10 0.00-0.19 10 3/mcL Normal 02-25-2020 [facility] [#/Vol] [facility] [place] ([place]) (43633) Comment: Performed By: #### CBC, ANEU , GFR, CMP, PHV, ISIS, LIP, ADIFF #### [address] [address] Basophils/100 WBC (Bld) 0.6 0.0-2.5 % Normal 2019 [facility] ([place]) (0000 0) Comment: Performed By: #### CBC, ANEU , GFR, CMP, PHV, ISIS, LIP, ADIFF #### [address] [address] Eosinophils (Bld) 0.30 0.00-0.40 10 3/mcL Normal 02-25-2020 [facility] [#/Vol] [facility] [place] ([place] (70952) Comment: Performed By: #### CBC, ANEU , GFR, CMP, PHV, ISIS, LIP, ADIFF #### [address] [address] Eosinophils/100 WBC (Bld) 2.4 0.0-7.0 % Normal [facility] ([place]) (0000 0) Comment: Performed By: #### CBC, ANEU , GFR, CMP, PHV, ISIS, LIP, ADIFF #### [address] [address] Lymphocytes (Bld) 1.60 0.77-3.85 10 3/mcL Normal 02-25-2020 [facility] [#/Vol] [facility] [place] ([place]) (16469) Comment: Performed By: #### CBC, ANEU , GFR, CMP, PHV, ISIS, LIP, ADIFF #### [address] [address] Lymphocytes/100 WBC (Bld) 14.6 10.0-50.0 % Normal [facility] ([place]) (78069) Comment: Performed By: #### CBC, ANEU , GFR, CMP, PHV, ISIS, LIP, ADIFF #### [address] [address] Monocytes/100 WBC (Bld) 6.8 1.7-13.0 % Normal 2019 [facility] ([place]) (0000 0) Comment: Performed By: #### CBC, ANEU , GFR, CMP, PHV, ISIS, LIP, ADIFF #### [address] [address] Neutrophils/100 WBC (Bld) 75.6 37.0-80.0 % Normal [facility] ([place]) (87275) Comment: Performed By: #### CBC, ANEU , GFR, CMP, PHV, ISIS, LIP, ADIFF #### [address] [address] vidh on 2020-02-24 Vit. D 25-Hydroxy 24 ng/mL Normal 02-24-2020 [facility] ([place]) (18693) Comment: Result Comment: Interpretive Values Based on Total 25(OH)D: Severe Deficiency <20 ng/mL Mild to Moderate Deficiency 20-30 ng/mL Optimum Levels 30-100 ng/mL Toxicity Possible >100 ng/mL Performed By: #### TSH, CMP, LIPID, VIDH, A1C, GFR #### [address] [address] uric on 2020-02-24 Uric Acid Lvl 4.7 2.6-6.2 mg/dL Normal 02-24-2020 [facility] ([place]) (26430) Comment: Performed By: #### TSH, CMP, LIPID, VIDH, A1C, GFR #### [address] [address] tsh on 2020-02-24 TSH Qn 2.13 0.36-3.74 mcIU/mL Normal 02-24-2020 [facility] ([place]) (57212) Comment: Performed By: #### TSH, CMP, LIPID, VIDH, A1C, GFR #### [address] [address] lipid on 2020-02-24 Cholesterol [Mass/Vol] 134 0-200 mg/dL Normal 02-23- 020 [facility] ([place]) (0000 0) Comment: Result Comment: Cholesterol Reference Interval: Less than 200 Desirable 200-239 Borderline high risk 240 and above High risk Performed By: #### TSH, CMP, LIPID, VIDH, A1C, GFR #### [address] [address] Cholesterol in HDL 45 40-60 mg/dL Normal 02-24-2020 [facility] [Mass/Vol] ([place]) (000 00) Comment: Performed By: #### TSH, CMP, LIPID, VIDH, A1C, GFR #### [address] [address] Cholesterol in LDL 55 0-130 mg/dL Normal 02-24-2020 [facility] [Mass/Vol] ([place]) (000 00) Comment: Performed By: #### TSH, CMP, LIPID, VIDH, A1C, GFR #### [address] [address] Triglyceride [Mass/Vol] 171 0-150 mg/dL High 2019 [facility] ([place]) (0000 0) Comment: Result Comment: Triglyceride Reference Interval: Less than 150 Normal 150-199 Borderline high risk 200-499 High risk 500 or higher Very high risk Performed By: #### TSH, CMP, LIPID, VIDH, A1C, GFR #### [address] [address] ft4 on 2020-02-24 Free T4 [Mass/Vol] 1.37 0.76-1.46 ng/dL Normal 02-24-2020 [facility] ([place]) (0000 0) Comment: Performed By: #### TSH, CMP, LIPID, VIDH, A1C, GFR #### [address] [address] cmp on 2020-02-24 Albumin [Mass/Vol] 3.5 3.4-4.8 G/dL Normal 02-24-2020 [facility] ([place]) (75887) Comment: Performed By: #### TSH, CMP, LIPID, VIDH, A1C, GFR #### [address] [address] Albumin/Globulin [Mass ratio] 1.0 1.1-2.5 ratio Low 02-24-2020 [facility] ([place]) (98842) Comment: Performed By: #### TSH, CMP, LIPID, VIDH, A1C, GFR #### [address] [address] ALP [Catalytic activity/Vol] 193 40-135 U/L High 0 02-24-2020 [facility] ([place]) (0000 0) Comment: Performed By: #### TSH, CMP, LIPID, VIDH, A1C, GFR #### [address] [address] ALT [Catalytic activity/Vol] 22 10-35 U/L Normal 0 02-24-2020 [facility] ([place]) (0000 0) Comment: Performed By: #### TSH, CMP, LIPID, VIDH, A1C, GFR #### [address] [address] AST [Catalytic activity/Vol] 16 10-40 U/L Normal 0 02-24-2020 [facility] ([place]) (0000 0) Comment: Performed By: #### TSH, CMP, LIPID, VIDH, A1C, GFR #### [address] [address] Bili Total 0.7 0.2-1.0 mg/dL Normal 02-24-2020 [facility] ([place]) (27463) Comment: Result Comment: Use of this assay is not recommended for patients undergoing treatment with eltrombopag d ue to the potential for falsely elevated results. Performed By: #### TSH, CMP, LIPID, VIDH, A1C, GFR #### [address] [address] Calcium [Mass/Vol] 9.3 8.4-10.2 mg/dL Normal 02-24-2020 [facility] ([place]) (0000 0) Comment: Performed By: #### TSH, CMP, LIPID, VIDH, A1C, GFR #### [address] [address] Chloride [Moles/Vol] 95 98-107 mmol/L Low 0 [facility]) (46370) Comment: Performed By: #### TSH, CMP, LIPID, VIDH, A1C, GFR #### [address] [address] CO2 [Moles/Vol] 30 23-31 mmol/L Normal 02-24-2020 [facility]) (62542) Comment: Performed By: #### TSH, CMP, LIPID, VIDH, A1C, GFR #### [address] [address] Creatinine [Mass/Vol] 1.28 0.55-1.02 mg/dL High 02-24-20 20 [facility]) (0000 0) Comment: Performed By: #### TSH, CMP, LIPID, VIDH, A1C, GFR #### [address] [address] Electrolyte Balance 8.0 mEq/L Normal 02-24-2020 [facility]) (62072) Comment: Performed By: #### TSH, CMP, LIPID, VIDH, A1C, GFR #### [address] [address] Globulin (S) [Mass/Vol] 3.4 G/dL Normal 2019 [facility]) (59485) Comment: Performed By: #### TSH, CMP, LIPID, VIDH, A1C, GFR #### [address] [address] Glucose [Mass/Vol] 458 80-115 mg/dL Critically abnormal 0 02-24-2020 [facility] ([place]) (78362) Comment: Performed By: #### TSH, CMP, LIPID, VIDH, A1C, GFR #### [address] [address] Potassium [Moles/Vol] 4.6 3.5-5.1 mmol/L Normal 02-24-20 20 [facility] ([place]) (0000 0) Comment: Performed By: #### TSH, CMP, LIPID, VIDH, A1C, GFR #### [address] [address] Protein [Mass/Vol] 6.9 6.4-8.2 G/dL Normal 02-24-2020 [facility] ([place]) (47243) Comment: Performed By: #### TSH, CMP, LIPID, VIDH, A1C, GFR #### [address] [address] Sodium [Moles/Vol] 133 136-145 mmol/L Low 02-24-2020 [facility] ([place]) (25161) Comment: Performed By: #### TSH, CMP, LIPID, VIDH, A1C, GFR #### [address] [address] Urea nitrogen [Mass/Vol] 17 7-18 mg/dL Normal 02-23 [facility] ([place]) (0000 0) Comment: Performed By: #### TSH, CMP, LIPID, VIDH, A1C, GFR #### [address] [address] Urea nitrogen/Creatinine [Mass 13 7-27 ratio Normal 02-24-2020 [facility]] [facility] [place] ([place]) (16433) Comment: Performed By: #### TSH, CMP, LIPID, VIDH, A1C, GFR #### [address] [address] a1c on 2020-02-24 HbA1c (Bld) [Mass fraction] 9.2 4.3-6.4 % High [facility] ([place]) (0000 0) Comment: Performed By: #### TSH, CMP, LIPID, VIDH, A1C, GFR #### [address] [address] .gfr on 2020-02-24 GFR Non- 42 ml/min/1.73sqm Normal 02-24-2020 [facility] ([place]) (82972) Comment: Result Comment: GFR Population mean for Afri can [place], Non- Americans Ages 20-29 = 116 mL/min/1.73 sq.m. Ages 30-39 = 107 mL/min/1.73 sq.m. Ages 40-49 = 99 mL/min/1.73 sq.m. Ages 50-59 = 93 mL/min/1.73 sq.m. Ages 60-69 = 85 mL/min/1.73 sq.m. Ages 70+ = 75 mL/min/1.73 sq .m. Chronic Kidney Disease: Less than 60 mL/min/1.73 square meters End Stage Renal Disease: Les s than 15 mL/min/1.73 square meters Performed By: #### TSH, CMP, LIPID, VIDH, A1C, GFR #### [address] [id number] GFR 51 ml/min/1.73sqm Normal - [facility] ([place]) (0000 0) Comment: Result Comment: GFR Population mean for Afri can [place], Non- Americans Ages 20-29 = 116 mL/min/1.73 sq.m. Ages 30-39 = 107 mL/min/1.73 sq.m. Ages 40-49 = 99 mL/min/1.73 sq.m. Ages 50-59 = 93 mL/min/1.73 sq.m. Ages 60-69 = 85 mL/min/1.73 sq.m. Ages 70+ = 75 mL/min/1.73 sq .m. Chronic Kidney Disease: Less than 60 mL/min/1.73 square meters End Stage Renal Disease: Les s than 15 mL/min/1.73 square meters Performed By: #### TSH, CMP, LIPID, VIDH, A1C, GFR #### [address] [id number] vidh on 2019-11-16 Vit. D 25-Hydroxy 21 ng/mL Normal 11-16-2019 A Replaced by [facility] ([place]) ([id number]) Comment: Result Comment: Interpretive Values Based on Total 25(OH)D: Severe Deficiency <20 ng/mL Mild to Moderate Deficiency 20-30 ng/mL Optimum Levels 30-100 ng/mL Toxicity Possible >100 ng/mL Performed By: #### TSH, CMP, LIPID, VIDH, A1C, GFR #### [address] [id number] tsh on 2019-11-16 TSH Qn 2.00 0.36-3.74 mcIU/mL Normal 11-16-2019 [facility] ([place]) ([id number]) Comment: Performed By: #### TSH, CMP, LIPID, VIDH, A1C, GFR #### [address] [id number] lipid on 2019-11-16 Cholesterol [Mass/Vol] 157 0-200 mg/dL Normal 020 [facility] ([place]) (0000 0) Comment: Result Comment: Cholesterol Reference Interval: Less than 200 Desirable 200-239 Borderline high risk 240 and above High risk Performed By: #### TSH, CMP, LIPID, VIDH, A1C, GFR #### [address] [address] Cholesterol in HDL 70 40-60 mg/dL High 11-16-2019 [facility] [[place]] ([place]) (000 00) Comment: Performed By: #### TSH, CMP, LIPID, VIDH, A1C, GFR #### [address] [id number] Cholesterol in LDL 67 0-130 mg/dL Normal 11-16-2019 [facility] [[place] ([place]) (000 00) Comment: Performed By: #### TSH, CMP, LIPID, VIDH, A1C, GFR #### [address] [address] Triglyceride [Mass/Vol] 100 0-150 mg/dL Normal 2019 [facility] ([place]) (0000 0) Comment: Result Comment: Triglyceride Reference Interval: Less than 150 Normal 150-199 Borderline high risk 200-499 High risk 500 or higher Very high risk Performed By: #### TSH, CMP, LIPID, VIDH, A1C, GFR #### [address] [id number] cmp on 2019-11-16 Albumin [Mass/Vol] 3.4 3.4-4.8 G/dL Normal 11-16-2019 [facility] ([place]) ([address]01) Comment: Performed By: #### TSH, CMP, LIPID, VIDH, A1C, GFR #### [address] [address] Albumin/Globulin [Mass ratio] 1.0 1.1-2.5 ratio Low 11-16-2019 [facility] ([place]) ([address]324) Comment: Performed By: #### TSH, CMP, LIPID, VIDH, A1C, GFR #### [address] [address] ALP [Catalytic activity/Vol] 197 40-135 U/L High 0 11-16-2019 [facility] ([place]) (0000 0) Comment: Performed By: #### TSH, CMP, LIPID, VIDH, A1C, GFR #### [address] [address] ALT [Catalytic activity/Vol] 39 10-35 U/L High 0 11-16-2019 [facility] ([place]) (0000 0) Comment: Performed By: #### TSH, CMP, LIPID, VIDH, A1C, GFR #### [address] [address] AST [Catalytic activity/Vol] 21 10-40 U/L Normal 0 11-16-2019 [facility] ([place]) (0000 0) Comment: Performed By: #### TSH, CMP, LIPID, VIDH, A1C, GFR #### [address] [address] Bili Total 0.9 0.2-1.0 mg/dL Normal 11-16-2019 [facility] ([place]) (94967) Comment: Result Comment: Use of this assay is not recommended for patients undergoing treatment with eltrombopag d ue to the potential for falsely elevated results. Performed By: #### TSH, CMP, LIPID, VIDH, A1C, GFR #### [address] [address] Calcium [Mass/Vol] 9.1 8.4-10.2 mg/dL Normal 11-16-2019 [facility] ([place]) (0000 0) Comment: Performed By: #### TSH, CMP, LIPID, VIDH, A1C, GFR #### [address] [address] Chloride [Moles/Vol] 99 98-107 mmol/L Normal 0 [facility] ([place]) (0000 0) Comment: Performed By: #### TSH, CMP, LIPID, VIDH, A1C, GFR #### [address] [address] CO2 [Moles/Vol] 30 23-31 mmol/L Normal [facility]-16-[facility] [place] (18227) Comment: Performed By: #### TSH, CMP, LIPID, VIDH, A1C, GFR #### [address] [address] Creatinine [Mass/Vol] 1.22 0.55-1.02 mg/dL High 11-16-19 [facility] ([place]) (0000 0) Comment: Performed By: #### TSH, CMP, LIPID, VIDH, A1C, GFR #### [address] [address] Electrolyte Balance 7.0 mEq/L Normal 11-16-2019 [facility] ([place] (76458) Comment: Performed By: #### TSH, CMP, LIPID, VIDH, A1C, GFR #### [address] [address] Globulin (S) [Mass/Vol] 3.3 G/dL Normal 2019 [facility] ([place]) (93572) Comment: Performed By: #### TSH, CMP, LIPID, VIDH, A1C, GFR #### [address] [address] Glucose [Mass/Vol] 329 80-115 mg/dL High 11-16-2019 [facility] ([place] (64880) Comment: Performed By: #### TSH, CMP, LIPID, VIDH, A1C, GFR #### [address] [address] Potassium [Moles/Vol] 4.8 3.5-5.1 mmol/L Normal 11-16-19 20 [facility] ([place]) (0000 0) Comment: Performed By: #### TSH, CMP, LIPID, VIDH, A1C, GFR #### [address] [address] Protein [Mass/Vol] 6.7 6.4-8.2 G/dL Normal 11-16-2019 [facility] ([place] (98086) Comment: Performed By: #### TSH, CMP, LIPID, VIDH, A1C, GFR #### [address] [address] Sodium [Moles/Vol] 136 136-145 mmol/L Normal 11-16-2019 [facility] ([place]) (0000 0) Comment: Performed By: #### TSH, CMP, LIPID, VIDH, A1C, GFR #### [address] [address] Urea nitrogen [Mass/Vol] 14 7-18 mg/dL Normal 11-15 [facility] ([place]) (0000 0) Comment: Performed By: #### TSH, CMP, LIPID, VIDH, A1C, GFR #### [address] [address] Urea nitrogen/Creatinine [Mass 11 7-27 ratio Normal 11-16-2019 [facility]] [facility] [place] ([place]) ([address]148) Comment: Performed By: #### TSH, CMP, LIPID, VIDH, A1C, GFR #### [address] [address] a1c on 2019-11-16 HbA1c (Bld) [Mass fraction] 8.5 4.3-6.4 % High [facility] ([place]) (0000 0) Comment: Performed By: #### TSH, CMP, LIPID, VIDH, A1C, GFR #### [address] [address] .gfr on 2019-11-16 GFR Non- 44 ml/min/1.73sqm Normal 11-16-2019 [facility] ([place]) (88642) Comment: Result Comment: GFR Population mean for Afri can [place]ian, Non- Americans Ages 20-29 = 116 mL/min/1.73 sq.m. Ages 30-39 = 107 mL/min/1.73 sq.m. Ages 40-49 = 99 mL/min/1.73 sq.m. Ages 50-59 = 93 mL/min/1.73 sq.m. Ages 60-69 = 85 mL/min/1.73 sq.m. Ages 70+ = 75 mL/min/1.73 sq .m. Chronic Kidney Disease: Less than 60 mL/min/1.73 square meters End Stage Renal Disease: Les s than 15 mL/min/1.73 square meters Performed By: #### TSH, CMP, LIPID, VIDH, A1C, GFR #### [address] [address] GFR 54 ml/min/1.73sqm Normal 10-19 [facility] ([place]) (0000 0) Comment: Result Comment: GFR Population mean for Afri can [place], Non- Americans Ages 20-29 = 116 mL/min/1.73 sq.m. Ages 30-39 = 107 mL/min/1.73 sq.m. Ages 40-49 = 99 mL/min/1.73 sq.m. Ages 50-59 = 93 mL/min/1.73 sq.m. Ages 60-69 = 85 mL/min/1.73 sq.m. Ages 70+ = 75 mL/min/1.73 sq .m. Chronic Kidney Disease: Less than 60 mL/min/1.73 square meters End Stage Renal Disease: Les s than 15 mL/min/1.73 square meters Performed By: #### TSH, CMP, LIPID, VIDH, A1C, GFR #### [address] [address] mri spine lumbar w/o contrast on 2019-08-18 MRI SPINE LUMBAR ORIGINAL Normal 08-18-2019 [facility] W/O CONTRAST MRI SPINE LUMBAR W/O CONTRAST [facility] [place] ([place]) (64375) ORDERING PROVIDER: JENNY VIDES CLINICAL STATEMENT: lumbosacral root disease. TECHNIQUE: Sagittal T2, T1 and STIR; axial T1 and T2 weighte d images. COMPARISON: None. Vertebral Nomenclature: For purposes of this dictation, it is assumed that there are 5 [id number]-[id number], lumbar-type vertebrae, and the most caudal fully [...] Erythrocyte distribution 14.6 11.5-14.5 % High 08-17 [facility] width (RBC) [Ratio] ([place]) (70603) Comment: Performed By: #### TSH, CMP, LIPID, VIDH, A1C, GFR #### [address] [address] Hematocrit (Bld) [Volume 37.4 37.0-47.0 % Normal 08-17 [facility] fraction] ([place]) (0000 0) Comment: Performed By: #### TSH, CMP, LIPID, VIDH, A1C, GFR #### [address] [address] Hemoglobin (Bld) 12.4 12.0-16.0 G/dL Normal 08-17-2019 [facility] [Mass/Vol] [facility] ([place]) (35772) Comment: Performed By: #### TSH, CMP, LIPID, VIDH, A1C, GFR #### [address] [address] MCH (RBC) [Entitic mass] 27.8 27.0-31.2 pg Normal 08-17 [facility] ([place]) (0000 0) Comment: Performed By: #### TSH, CMP, LIPID, VIDH, A1C, GFR #### [address] [address] MCHC (RBC) [Mass/Vol] 33.1 33.0-37.0 G/dL Normal 08-17-20 19 [facility] ([place]) (0000 0) Comment: Performed By: #### TSH, CMP, LIPID, VIDH, A1C, GFR #### [address] [address] MCV (RBC) [Entitic vol] 83.8 80.0-94.0 fL Normal 2018 [facility] ([place]) (0000 0) Comment: Performed By: #### TSH, CMP, LIPID, VIDH, A1C, GFR #### [address] [address] Platelet mean volume 7.7 7.4-10.4 fL Normal 9 [facility] (d) [Entitic vol] ([place]) (79151) Comment: Performed By: #### TSH, CMP, LIPID, VIDH, A1C, GFR #### [address] [address] Platelets (Bld) [#/Vol] 277 130-400 10 3/mcL Normal 2018 [facility] ([place]) (11444) Comment: Performed By: #### TSH, CMP, LIPID, VIDH, A1C, GFR #### [address] [address] RBC (Bld) [#/Vol] 4.47 4.20-5.40 10 6/mcL Normal 08-17-2019 A Replaced by [facility] ([place]) (0000 0) Comment: Performed By: #### TSH, CMP, LIPID, VIDH, A1C, GFR #### [address] [address] WBC (Bld) [#/Vol] 10.70 4.60-10.80 10 3/mcL Normal 08-17-2019 [facility] ([place]) (02903) Comment: Performed By: #### TSH, CMP, LIPID, VIDH, A1C, GFR #### [address] [address] bmp on 2019-08-17 Calcium [Mass/Vol] 9.1 8.4-10.2 mg/dL Normal 08-17-2019 [facility] ([place]) (0000 0) Comment: Performed By: #### TSH, CMP, LIPID, VIDH, A1C, GFR #### [address] [address] Chloride [Moles/Vol] 100 98-107 mmol/L Normal 9 [facility] ([place] (0000 0) Comment: Performed By: #### TSH, CMP, LIPID, VIDH, A1C, GFR #### [address] [address] CO2 [Moles/Vol] 29 23-31 mmol/L Normal 08-17-2019 [facility]) (06746) Comment: Performed By: #### TSH, CMP, LIPID, VIDH, A1C, GFR #### [address] [address] Creatinine [Mass/Vol] 0.99 0.55-1.02 mg/dL Normal 08-17-20 19 [facility] ([place]) (35757) Comment: Performed By: #### TSH, CMP, LIPID, VIDH, A1C, GFR #### [place] [id number] Electrolyte Balance 7.0 mEq/L Normal 08-17-2019 [facility] ([place]) (11203) Comment: Performed By: #### TSH, CMP, LIPID, VIDH, A1C, GFR #### [address] [address] Glucose [Mass/Vol] 319 80-115 mg/dL High 08-17-2019 [facility] ([place] (66400) Comment: Performed By: #### TSH, CMP, LIPID, VIDH, A1C, GFR #### [address] [address] Potassium [Moles/Vol] 4.1 3.5-5.1 mmol/L Normal 08-17-20 19 [facility] ([place]) (0000 0) Comment: Performed By: #### TSH, CMP, LIPID, VIDH, A1C, GFR #### [address] [address] Sodium [Moles/Vol] 136 136-145 mmol/L Normal 08-17-2019 [facility] ([place]) (0000 0) Comment: Performed By: #### TSH, CMP, LIPID, VIDH, A1C, GFR #### [address] [address] Urea nitrogen [Mass/Vol] 12 7-18 mg/dL Normal 08-17 [facility] ([place]) (0000 0) Comment: Performed By: #### TSH, CMP, LIPID, VIDH, A1C, GFR #### [address] [address] Urea nitrogen/Creatinine [Mass 12 7-27 ratio Normal 08-17-2019 [facility]] [facility] [place] ([place]) (02374) Comment: Performed By: #### TSH, CMP, LIPID, VIDH, A1C, GFR #### [address] [address] .neuabs on Neutrophils (Bld) 7.60 2.85-6.16 10 3/mcL High 08-17-2019 [facility] [#/Vol] [facility] [place] ([place] ([address]500) Comment: Performed By: #### TSH, CMP, LIPID, VIDH, A1C, GFR #### [address] [address] .gfr on 2019-08-17 GFR 68 ml/min/1.73sqm Normal 12- [facility] ([place]) (0000 0) Comment: Result Comment: GFR Population mean for Afri can [place]ian, Non- Americans Ages 20-29 = 116 mL/min/1.73 sq.m. Ages 30-39 = 107 mL/min/1.73 sq.m. Ages 40-49 = 99 mL/min/1.73 sq.m. Ages 50-59 = 93 mL/min/1.73 sq.m. Ages 60-69 = 85 mL/min/1.73 sq.m. Ages 70+ = 75 mL/min/1.73 sq .m. Chronic Kidney Disease: Less than 60 mL/min/1.73 square meters End Stage Renal Disease: Les s than 15 mL/min/1.73 square meters Performed By: #### TSH, CMP, LIPID, VIDH, A1C, GFR #### [address] [address] GFR Non- 56 ml/min/1.73sqm Normal 08-17-2019 [facility] ([place]) (74518) Comment: Result Comment: GFR Population mean for Afri can [place], Non- Americans Ages 20-29 = 116 mL/min/1.73 sq.m. Ages 30-39 = 107 mL/min/1.73 sq.m. Ages 40-49 = 99 mL/min/1.73 sq.m. Ages 50-59 = 93 mL/min/1.73 sq.m. Ages 60-69 = 85 mL/min/1.73 sq.m. Ages 70+ = 75 mL/min/1.73 sq .m. Chronic Kidney Disease: Less than 60 mL/min/1.73 square meters End Stage Renal Disease: Les s than 15 mL/min/1.73 square meters Performed By: #### TSH, CMP, LIPID, VIDH, A1C, GFR #### [address] [address] .auto diff on 08-17 Ammonia (P) [Mass/Vol] 0.70 0.15-1.00 10 3/mcL Normal 08-17- 019 [facility] ([place]) (13399) Comment: Performed By: #### TSH, CMP, LIPID, VIDH, A1C, GFR #### [address] [address] Basophils (Bld) 0.10 0.00-0.19 10 3/mcL Normal 08-17-2019 [facility] [#/Vol] [facility] [place] ([place]) (38157) Comment: Performed By: #### TSH, CMP, LIPID, VIDH, A1C, GFR #### [address] [address] Basophils/100 WBC (Bld) 0.6 0.0-2.5 % Normal 2018 [facility] ([place]) (0000 0) Comment: Performed By: #### TSH, CMP, LIPID, VIDH, A1C, GFR #### [address] [address] Eosinophils (Bld) 0.30 0.00-0.40 10 3/mcL Normal 08-17-2019 [facility] [#/Vol] [facility] [place] ([place] (94352) Comment: Performed By: #### TSH, CMP, LIPID, VIDH, A1C, GFR #### [address] [address] Eosinophils/100 WBC (Bld) 2.6 0.0-7.0 % Normal 07-21 [facility] ([place]) (0000 0) Comment: Performed By: #### TSH, CMP, LIPID, VIDH, A1C, GFR #### [address] [address] Lymphocytes (Bld) 2.10 0.77-3.85 10 3/[facility] Normal 08-17-2019 [facility] [#/Vol] [facility] [place] ([place] (78852) Comment: Performed By: #### TSH, CMP, LIPID, VIDH, A1C, GFR #### [address] [address] Lymphocytes/100 WBC (Bld) 19.5 10.0-50.0 % Normal 07-21 [facility] ([place]) (91394) Comment: Performed By: #### TSH, CMP, LIPID, VIDH, A1C, GFR #### [address] [address] Monocytes/100 WBC (Bld) 6.5 1.7-13.0 % Normal 2018 [facility] ([place]) (0000 0) Comment: Performed By: #### TSH, CMP, LIPID, VIDH, A1C, GFR #### [address] [address] Neutrophils/100 WBC (Bld) 70.8 37.0-80.0 % Normal 07-21 [facility] ([place]) (62719) Comment: Performed By: #### TSH, CMP, LIPID, VIDH, A1C, GFR #### [address] [address] urine w microsc on 2018-08-31 Appearance Nom (U) Cloudy CLEAR Normal 08-31-2018 [facility] (22388) Comment: Performed By: #### L600.0000 3 ####[facility] [id number] [place], [place] [address]Iz# [phone] Color Nom (U) Yellow Normal 08-31-2018 [facility] (21202) Comment: Performed By: #### L600.0000 3 ####[facility] PHSYCYFGLJ1182 [place], [place] [address]Rs# Glucose mass conc (U) NEG mg/dL Normal 08-31-19 [facility] (71010) Comment: Performed By: #### L600.0000 3 ####[facility] OLQWOZLOYG8727 [place], [place] [address]Gz# [phone] HYALINE CAST 86 0-1 /LPF High 08-31-2018 [facility] (80987) Comment: Performed By: #### L600.0000 3 ####[facility] AQOMCYHZLV0300 [place], [place] [address]Qg# Mucus Ql (Urine sed) TRACE Normal [facility] (87156) Comment: Performed By: #### L600.0000 3 ####[facility] [id number] [place], [place] [address]Dq# Protein mass conc (U) NEGATIVE NEGATIVE mg/dL Normal 08-31-19 [facility] (00 000) Comment: Performed By: #### L600.0000 3 ####[facility] [id number] [place], [place] [address]Uu# SQUAMOUS EPIS 1 0-5 EPI/HPF Normal 08-31-2018 [facility] (44522) Comment: Performed By: #### L600.0000 3 ####[facility] [id number] [place], [place] [address]Gx# [phone] UA BACTERIA 4+ NONE /HPF Normal 08-31-2018 [facility] (93677) Comment: Performed By: #### L600.0000 3 ####[facility] HQNNIKXZZF0785 [place], [place] [address]So# [phone] UA BILIRUBIN NEGATIVE Normal 08-31-2018 [facility] (30243) Comment: Performed By: #### L600.0000 3 ####[facility] [id number] [place], [place] [address]Uc# UA BLOOD NEGATIVE NEGATIVE Normal 08-31-2018 [facility] (87965) Comment: Performed By: #### L600.0000 3 ####[facility] [id number] [place], [place] [address]Fz# UA KETONE NEGATIVE Normal 08-31-2018 [facility] (25344) Comment: Performed By: #### L600.0000 3 ####[facility] BAEVHYGSVY8190 [place], [place] [address]Ge# [phone] UA LK ESTERASE 500 NEGATIVE Normal 08-31-2018 [facility] (11829) Comment: Performed By: #### L600.0000 3 ####[facility] OIKUHOVMHR7220 [place], [place] [address]Pc# UA NITRITE NEGATIVE NEGATIVE Normal 08-31-2018 [facility] (45985) Comment: Performed By: #### L600.0000 3 ####[facility] MQOCMGOLVZ3381 [place], [place] [address]Wf# UA PH 5.0 Normal 08-31-2018 [facility] (84445) Comment: Performed By: #### L600.0000 3 ####[facility] ASEETCZPAD3307 [place], [place] [address]Cb# [phone] UA RBC 1 0-3 RBC/HPF Normal 08-31-2018 [facility] (66603) Comment: Performed By: #### L600.0000 3 ####[facility] IDJMZERDZI2462 [place], [place] [address]Pv# [phone] UA SPEC GRAV 1.013 1.005-1.030 Normal 08-31-2018 [facility] (74725) Comment: Performed By: #### L600.0000 3 ####[facility] TRZVTQTSQZ2530 [place], [place] [address]Va# UA UROBILINOGEN NEG Normal 08-31-2018 [facility] (00406) Comment: Performed By: #### L600.0000 3 ####[facility] YTQIIMTVPZ2909 [place], [place] [address]Ti# UA WBC 293 0-5 WBC/HPF High 08-31-2018 [facility] (83988) Comment: Performed By: #### L600.0000 3 ####[facility] ZDZFHHGCCP1723 [place], [place] [address]Ru# UA YEAST MANY NONE Normal 08-31-2018 [facility] (76429) Comment: Performed By: #### L600.0000 3 ####[facility] [id number] [place], [place] [address]Gi# WBC CLUMPS FEW Normal 08-31-2018 [facility] (15278) Comment: Performed By: #### L600.0000 3 ####[facility] LNOCPOZQWD6696 [place], [place] [address]Av# [phone] gfr est on IF AMER 14 ML/MIN Normal 08-31-2018 [facility] (31102) Comment: Performed By: #### L500.0140 0, L500.54818, L550.03107 ####[facility] YGOIRFMDAC6279 [place], [place] [address]Re# [phone] IF non-AFR AMER 12 ML/MIN Normal 08-31-2018 [facility] (11080) Comment: Performed By: #### L500.0140 0, L500.76046, L550.30735 ####[facility] LVKTEPDBAB8662 [place], [place] [address]Eb# [phone] crp on 2018-08-31 CRP mass conc 4.13 0.00-0.32 MG/DL High 08-31-2018 [facility] (51436) Comment: Performed By: #### L500.0140 0, L500.72787, L550.67517 ####[facility] MXMCXKUDQO5466 [place], [place] [address]Xb# [phone] cmp on 2018-08-31 Albumin mass conc 2.9 3.2-5.0 GM/DL Low 08-31-2018 [facility] (80178) Comment: Performed By: #### L500.0140 0, L500.67864, L550.46878 ####[facility] BJSDHBMPIW6596 [place], [place] [address]Ix# [phone] Albumin/Globulin mass ratio 0.9 0.8-2.0 {ratio} Normal [facility] [place] (77518) Comment: Performed By: #### L500.0140 0, L500.21557, L550.99697 ####[facility] VXNFLUAUJV9860 [place], [place] [address]Ta# [phone] ALK PHOS 179 45-117 U/L High 08-31-2018 [facility] (85525) Comment: Performed By: #### L500.0140 0, L500.06178, L550.14010 ####[facility] OFAUZQJFON3880 [place], [place] [address]Og# [phone] ALT enzyme act/vol 78 13-61 IU/L High 08-31-2018 [facility] (10595) Comment: Result Comment: RESULTS MAY BE FALSELY DEPRESSED AFTER THE ADMINISTRATION OFSULFASALAZINE AND/OR SULFA PYRIDINE. Performed By: #### L500.0140 0, L500.15707, L550.35184 ####[facility] RPUJCLULDI1356 [place], [place] [address]Yn# [phone] Anion gap molar conc 8 5-16 MMOL/L Normal 9 [facility] (15849) Comment: Performed By: #### L500.0140 0, L500.50629, L550.70264 ####[facility] LNNHFKEDFS8010 [place], [place] [address]Vf# [phone] BILI TOTAL 1.0 0.2-1.0 MG/DL Normal 08-31-2018 [facility] (54904) Comment: Performed By: #### L500.0140 0, L500.57706, L550.54401 ####[facility] ELHXRDITVZ6802 [place], [place] [address]Ge# [phone] Calcium mass conc 8.5 8.5-10.1 MG/DL Normal 08-31-2018 [facility] (41616) Comment: Performed By: #### L500.0140 0, L500.35432, L550.00418 ####[facility] LYVWMYPZCR1586 [place], [place] [address]Yh# [phone] Chloride molar conc 94 98-107 MMOL/L Low 08-31-2018 [facility] (26715) Comment: Performed By: #### L500.0140 0, L500.50853, L550.79829 ####[facility] HEZDBFRBJB2242 [place], [place] [address]Pj# [phone] CO2 molar conc 28 21-32 MMOL/L Normal 08-31-2018 [facility] (21534) Comment: Performed By: #### L500.0140 0, L500.49044, L550.11403 ####[facility] YRLTMYLXFB4030 [place], [place] [address]Iv# [phone] Creatinine mass conc 3.850 0.510-0.950 MG/DL High [address] [place] [address] (00 000) Comment: Result Comment: Patients rec eiving either N-Acetylcysteine (NAC) orMetamizole prior to venipu ncture, may have falsely depressedresults. Performed By: #### L500.0140 0, L500.97887, L550.79668 ####[facility] CVIEGXGKDF7326 [place], [place] [address]Fr# [phone] Globulin mass conc (S) 3.3 2.2-4.2 GM/DL Normal [address] [place] [address] (00 000) Comment: Performed By: #### L500.0140 0, L500.81261, L550.73534 ####[facility] OXCYBMPCEY4846 [place], [place] [address]Hn# [phone] Glucose mass conc 133 70-100 MG/DL High 08-31-2018 [facility] (41142) Comment: Result Comment: 70-100- Norm al Fasting; 100-125 Impaired Fasting; greaterthan 126 on more than one result- Diabetes. ADA guidelines.Results may be falsely elevated afte r the administration ofSulfapyridine.Results may be falsely depressed after t he administration ofSulfasalazine. Performed By: #### L500.0140 0, L500.68997, L550.51640 ####[facility] VPSIGZYLBZ0252 [place], [place] [address]Fi# [phone] Potassium molar conc 7.0 3.5-5.1 MMOL/L Critically high [facility] [place] (07453) Comment: Result Comment: Slight Hemol ysis, Result may be falsely increased. CriticalResult(s) Called at: 18:00:05 on 08/31/2018 by: milady hinson and read back by: TAE Roger Performed By: #### L500.0140 0, L500.49898, L550.44129 ####[facility] LRWKPDSFVB5538 [place], [place] [address]Hp# [phone] Protein mass conc 6.2 6.0-8.5 GM/DL Normal 08-31-2018 [facility] (50703) Comment: Performed By: #### L500.0140 0, L500.99140, L550.01260 ####[facility] MQQQNQUTVK5658 [place], [place] [address]Lc# [phone] SGOT (AST) 102 8-34 U/L High 08-31-2018 [facility] (18596) Comment: Result Comment: Slight Hemol ysis, Result may be falsely increased.RESULTS MAY BE FALSELY DEPRESSED AFT ER THE ADMINISTRATION OFSULFASALAZINE AND/OR SULFAPYRIDINE. Performed By: #### L500.0140 0, L500.61500, L550.38398 ####[facility] LMRGKSIZAA5216 [place], [place] [address]Cn# [phone] Sodium molar conc 129 136-145 MMOL/L Low 08-31-2018 [facility] (31163) Comment: Performed By: #### L500.0140 0, L500.00005, L550.64104 ####[facility] QTTSOMHOOE6167 [place], [place] [address]Wp# [phone] Urea nitrogen mass conc 62 7-26 MG/DL High 2018 [facility] (95578) Comment: Performed By: #### L500.0140 0, L500.07177, L550.04638 ####[facility] [id number] [place], [place] [address]Zs# [phone] Urea nitrogen/Creatinine mass 16 15-24 mg/mg Normal 08-31-2018 [facility] ratio [place]gan (00 000) Comment: Performed By: #### L500.0140 0, L500.47792, L550.77308 ####[facility] [id number] [place], [place] [address]Ko# [phone] cbc w/diff on 08-31 BASO ABS 0.10 0-0.2 K/CU MM Normal 08-31-2018 [facility] (99672) Comment: Performed By: #### L200.0005 0 ####[address] [address]Ac# Basophils/100 WBC (Bld) 0.3 0-2 % Normal 2018 [facility] (51375) Comment: Performed By: #### L200.0005 0 ####[address] [address]Cl# EOS ABS 0.30 0-0.5 K/CU MM Normal 08-31-2018 [facility] [place] (09183) Comment: Performed By: #### L200.0005 0 ####[facility] [id number] [place] [address]Bc# [phone] Eosinophils/100 WBC (Bld) 1.4 0-5 % Normal 08-19 [facility] [place] (14803) Comment: Performed By: #### L200.0005 0 ####[address] [address]Sm# Erythrocyte distribution width 16.5 11-14.5 % High 08-31-2018 [facility] Ratio (RBC) [place] ( [address]2840) Comment: Performed By: #### L200.0005 0 ####[address] [address]Ix# Hematocrit Volume Fraction 35.7 35.0-47.0 % Normal [facility] (d) [place] (00 000) Comment: Performed By: #### L200.0005 0 ####[address] [address]Qd# [phone] Hemoglobin mass conc (Bld) 11.1 11.5-15.5 G/DL Low [facility] (00 000) Comment: Performed By: #### L200.0005 0 ####[facility] [id number] [place], [place] [address]Ew# [phone] IMMATR GRAN ABS 0.10 Less than 2 K/CU MM Normal 08-31-2018 [facility] (00 000) Comment: Performed By: #### L200.0005 0 ####[facility] [id number] [place] [address]Je# IMMATURE GRAN % 0.6 Less than 2 % Normal 08-31-2018 [facility] (09621) Comment: Performed By: #### L200.0005 0 ####[address] [address]Lt# [phone] Lymphocytes #/vol (Bld) 4.10 0.9-4.4 K/CU MM Normal 2018 [facility] (00 000) Comment: Performed By: #### L200.0005 0 ####[facility] [id number] [place] [address]Bb# Lymphocytes/100 WBC (Bld) 18.5 20-40 % Low 08-19 [facility] (06418) Comment: Performed By: #### L200.0005 0 ####[facility] [id number] [place] [address]Bv# MCHC mass conc (RBC) 31.1 32.0-36.0 GM/DL Low 9 [facility] (88092) Comment: Performed By: #### L200.0005 0 ####[address] [address]Lg# MCV Entitic volume (RBC) 83.6 80.0-99.0 fl Normal 08-31 [facility] [facility] (00 000) Comment: Performed By: #### L200.0005 0 ####[address] [place], [place] [address]Ua# MONO ABS 2.20 0.1-1.1 K/CU MM High 08-31-2018 [facility] Brogan (83018) Comment: Performed By: #### L200.0005 0 ####[facility] [id number] [place], [place] [address]Nw# [phone] Monocytes/100 WBC (Bld) 9.8 2-10 % Normal 2018 [facility] (85959[facility] Comment: Performed By: #### L200.0005 0 ####[facility] [id number] [place] [address] 18702Xx# NEUTROPHIL ABS 15.50 2.0-8.3 K/CU MM High 08-31-2018 [facility] (14111) Comment: Performed By: #### L200.0005 0 ####[facility] SM[address]BNA[address] [place] [address] 201[address]Gg# [phone] Neutrophils/100 WBC (Bld) 69.4 45-75 % Normal 08-19 [facility] (29860) Comment: Performed By: #### L200.0005 0 ####[facility] NQPPEH[address]FG[address] [place], [place] [address]Bu# [phone] Nucleated RBC/100 WBC 0.0 Less than 1 % Normal 2018 [facility] Ratio (Bld) Brogan ( 82327) Comment: Performed By: #### L200.0005 0 ####[facility] [id number] [place] [address]Eg# [phone] Platelet mean volume 11.0 9.4-12.4 fL Normal 9 [facility] Entitic volume (Bld) [place] (30765) Comment: Performed By: #### L200.0005 0 ####[facility] [id number] [place] [address] 07654Kk# [phone] Platelets #/vol (Bld) 401 150-450 K/CU MM Normal 08-31-19 19 [facility] (00 000) Comment: Performed By: #### L200.0005 0 ####[facility] JMAAJFOZOY8028 [place], [place] [address]Pa# RBC #/vol (Bld) 4.27 3.90-5.30 M/CU MM Normal 08-31-2018 [facility] (06963) Comment: Performed By: #### L200.0005 0 ####[facility] OA[address]DSWZTYQ[address]199 [place], [place] [address]Dy# [phone] WBC #/vol (Bld) 22.3 4.5-11.0 K/CUMM High 08-31-2018 [facility] (28432) Comment: Performed By: #### L200.0005 0 ####[facility] XFNKGJXDKY6516 [place], [place] [address]Rh# progress on 2018-07 Protein HNO ID: [id number]: Ayana ([facility]) ShannonService: Normal 07-23-2018 [facility] (none)Author Type: Nurse PractitionerType: Progress Clinic conc NotesFiled: 07/23/2018 1:20 PMNote Text:Crystal Fiore [facility] is a 62 year old female. Patient presents ([id number]) with:New PatientPMH: DM, Fibromyalgia, HTN, HyperlipidemiaRejay jay is here as a new patient. Four [...] FIRST FOR MY DOCUMENTATION TO PROVIDE CARE, HELPnothingGrinder AND COLLEAGUES TO HAVE NEUROLOGICAL CONTEXT OF [...] BPMetformin Other: See Comments Not Specified Side Effect/Iqvdwigzegh34/10/2017 Past Updates...MigrainesPAST MEDICAL HISTORY:ACTIVE PROBLEM LISTTuberculosis of Lung, Nodular, Confirmation UnspecifiedDiarrheaNausea AND VomitingPAST SURGICAL HISTORYProcedure Laterality Date- APPENDECTOMY 1973- COLONOSCOP W/ OR W/O [facility] SPEC 06/19/2013 Colonoscopy- COLONOSCOPY W/BX 05/27/07- [...] motor and sensory exam is symmetricEqual v1,V2, C1Nlzmqx is in midline. No tongue fasciculation.Palate is upgoing bilaterallySCM and trapezius are full.Shoulder shrug intact?Motor Exam:?Upper extremity motor exam is 5/5 in deltoid, 5/5 triceps 5/5biceps, 5/5wrist extension, and 5/5 hand advanced practice registered nurse. Finger extensor 5/5. Finger flexor5/5. Pronation and [...] Babinski). No clonus of ankles.?Coordination:Finger-to- nose-finger and yflw-mk-upae intact bilaterally. No ataxia ofarms. No limb [...] via smart pill procedure. The [facility] is mildlyelevated and having a neurological exam [...] visit, with more than 50% of the vilqaiqcx-rm-ogug time of the visit in counseling / coordination of care.ACTIVE PROBLEM LISTTuberculosis of Lung, Nodular, Confirmation UnspecifiedDiarrheaNausea AND VomitingNo orders found for this visit on 07/23/18.Ayana Jamison MSN, ORACLE DATABASE ADMINISTRATOR, SHOVEL MECHANIC-C1. This office note has been dictated and [...] CNOV Office Visit Normal 07-23-2018 Shauna and (NEADMN) --------CRYSTAL CRAMER ([id number]) 1955 [facility] Time Provider Dhvnmmdmqw30/5/18 12:45 PM AYANA JAMISON (JOSEP) ANGELINA Fiore During your visit today, we recorded the following information about you: Pulse Respiration Blood (74513) pressure Weight 69/minute 18 /minute 104/46 129.3 kg Height 1.676 Favio Jamison APRN.CNP 07/23/2018 1:20 PM SignedReteaganaaron banuelos is a 62 year old female. Patient presents with:New PatientPMH: DM, Fibromyalgia, HTN, Hyperlipi springRichayolanda is here as a new patient. Four [...] forvoltage gated potassium channel antibodies. Dr. Clayton fontenot did attempt to have collin IGG as [...] the visit is to evaluate herfor the [facility] and determine if there are [...] AND VomitingPAST SURGICAL HISTORYProcedure Laterality Date- APPENDECTOMY 1974- COLONOSCOP W/ OR W/O [facility] SPEC 06/19/2013 Colonoscopy- COLONOSCOPY W/B X [...] rate and rhythmPulses equal bilaterallyNeurological Examination:Cognition:The pa tient is alert and oriented times threeLucid and [...] motor and sensory exam is symmetricEqual v1,V2, E1Sstotn is in midline. No tongue fascic ulation.Palate is upgoing bilaterallySCM and trapezius are full.Shoulder shrug intact?Motor Exam:?Upp er extremity motor exam is 5/5 in deltoid, 5/5 triceps 5/5biceps, 5/5 wristextension, and 5/5 hand advanced practice registered nurse. Finger extensor 5/5. Finger flexor 5/5.Pronation and [...] Babinski). No clonus of ankles.?Coordination:Finger-to- nose-finger and uswu-oj-vfiz intact bilatera lly. No ataxia of arms.No [...] of d iabetes. In review of her O1Vqdoagz, she has been diabetic for some time now and her last A1C was 10. 7. Thediabetes is the likely cause of her neuropathic symptoms. Excluding theseneuropathic symptoms, h er neurological exam is stable. She should follow upwith Dr. Steven regarding her nausea and GI related symptoms as she isneurologically intact. I did explain this to the patient and she wasmarilu ray.This case was discussed in detail with Dr. [...] m ore than 50% of the total qbra-dk-vgxyfoox of the visit in counseling / coordination of care.ACTIVE PROBLEM LISTTuberculosis of Lung, Nodular, Confirmation UnspecifiedDiarrheaNausea AN D VomitingNo orders found for this visit on 07/23/18.Ayana Jamison MSN, ORACLE DATABASE ADMINISTRATOR, SHOVEL MECHANIC-C1. This office no te has been dictated [...] Comments Comments: MigrainesDate Reviewed: 12/2017Reviewed by: Ayana ([facility]) Shaheen - Fully AssessedReason for Visit: New Patient [...] MONTELUKAST 10 MG TABLET >> Ayana Jamison APRN.GLASS UNLOADING EQUIPMENT TENDER 07/23/2018 12:17 PM >> AYANA JAMISON SatJul 23, 2018 12:17 PMProblem List As Of [...] 05/23/2018 Disc: Discontinued by PatientEncounter Number: [id number] Status:Closed by AYANA JAMISON on 07/23/18 progress on 2018-05 Protein mass HNO ID: [id number]: Carlyn arriola 05-23-2018 [facility] conc (Data Modeling Architect) FulkService: (none)Author [place] Type: Nurse PractitionerType: ([id number]) Progress NotesFiled: 05/23/2018 12:48 PMNote Text:HPI Crystal [...] [facility] recommend patient be seen at nearest ED,refused Squad friend present will transport, report called to Nino CHOE.JOSEP Schwartz on 2018-05-23 CNOV Office Visit Normal 05-23-2018 [place] and (WSTR) --------CRYSTAL CRAMER ([id number]) 1955 FDat e Time Provider Xhowvlyxqw07/5/18 12:15 PM [facility] During Clev eland your visit today, we recorde d the following information about you: Temperature Pulse Respiration Blood (000 00) pressure 99 degrees 88/minut e 30/minute 128/76 Weight 129.3 kgCarlyn Wu APRN.CNP 05/23/2018 12:48 PM SignedHPMandy Crystal L Bela is a 62 year old female [...] Diabetes Maternal GrandmotherSocial History Marital status: Spou name: Cheikh Years of education: Number of [...] friendpresent will transport , report called to [place] ДМИТРИЙ.Carlyn Wu CNPReferring Provider: SELF [200]Allergies As of Date: 05/23/2018 Noted Allergy Reaction BACTRIM (SULFAMETHOXAZOLE-TRIMETH* 4 - HivesTORADOL (KETOROLAC) 03/22/2006 14 - Other: See Comments Comments: Increase BPCIPROFL OXACIN 06/10/2013 2 - RashFLEXERIL (CYCLOBENZAPRINE) 06/10/2013 2 - RashMETFORMIN 06/28/2017 14 - Other: See Comments Comments: MigrainesDate Reviewed: 05/23/2018Reviewed by: Carole NguyenEncompass Health) KENROY Henriquez - Fully AssessedReason for Visit: Fall [218] Cmt: pain in left side ribs, fell yesterday into ki Feedback counter, trouble breathing todayPrimary Visit Diagnosis:Borderline low [...] AND vomiting [R11.2] INVALID FOR*Encounte r Number: [id number] Status:Closed by CARLYN WU GLASS UNLOADING EQUIPMENT TENDER on 05/23/18 nino creatinine on 2017-12-31 Creatinine mass conc 1.2 0.7-1.4 mg/dL Normal 8 [facility] (17710) progress on 2017-12 Protein mass HNO ID: [id number]: Carole Stacy rmal 12-31-2017 [place] conc Hieu Bashir CtService: (none)Author Clinic Type: (none)Type: Progress [place] NotesFiled: 12/31/2017 12:48 PMNote (39651) Text: Radiology Service Progress NotePATIENT NAME: Crystal Arriola DianasMRN: [id number] OF SERVICE: December 31, 2017TIME: 12:48 PMPATIENT IDENTITY VERIFICATION COMPLETED USING TWO (2) METHODS: Patientconfirmed name verbally and Date of .PATIENT GENDER DATA: Female. status: : NoBreastfeeding status: NO.PATIENT RELEVANT IMPLANT DATA REVIEWED: YesCONTRAST INDUCED NEPHROPATHY RISK FACTORS: Patient age > 60 yearsCREATININE:CreatinineDate Value Ref Range Fgvmmx3004/28/2015 0.87 0.51 - 0.95 mg/dL Final04/27/2015 0.86 [...] Completed: Chest Abdomen PelvisSIGNED BY: Carole Bashir CtMa2017 12:48 PM kartik screening w ramo on 2017-12-31 KARTIK SCREENING W * * *Final Report* * *DATE OF Norm al 12-31-2017 [place] RAMO EXAM: Dec 31 2017 9:51AM [facility] 0582 - AKRTIK SCREENING W RAMO / Fiore ([id number]) REASON: Other disorders of nervous system * * * * Physician Interpretation * * * *RESULT: #[id number] - [facility] SCREENING W TOMOBILATERAL DIGITAL SCREENING MAMMOGRAM TOMOSYNTHESIS WITH CAD: 12/31/2017HISTORY: Other Disorders Of Nervous System\ Screening Mammogram - patient reports NO breast symptoms /Patient has signed release for outside images\[facility].RESULT:TECHNIQUE: The study was acquired using full [...] staff physician.Maral Kennedy M.D.jr,as/penrad:12/31/2017 14:00:45Imaging Technologist: Janneth Chris RT(R)(M), [place] Specialty Centerletter sent: Normal over 40Mammogram BI-RADS: 1 NegativeTranscriptionist: PenradTranscribe Date/Time: Dec 31 2017 9:52ADictated by: FABBY KENNEDY MDThis examination was interpreted and the report reviewed and electronically signed by: MARAL HALLMAN MD on Dec 31 2017 2:00PM [id number] ct chest w ivcon on 2017-12-31 CT CHEST W * * *Final Report* * *DATE OF EXAM: Catrachita landry 12-31-2017 [facility] IVCON Dec 31 2017 12:22PM [facility] 0539 - CT [place] CHEST W IVCON / [id number] REASON: Other disorders of nervous system * [...] represent herniated intra-abdominal fat or a lipomatous lesion.Drill Press Tender: ABRAM Transcribe Date/Time: Dec 31 2017 2:47PDictated by : VERONICA IBARRA MDThis examination was interpreted and the report reviewed and electronically signed by: VERONICA IBARRA MD on Dec 31 2017 3:07PM [id number] ct abd/pel w ivcon on 2017-12-31 CT ABD/PEL * * *Final Report* * *DATE OF EXAM: December12-31-2017 [facility] IVCON 2017 12:22PM [facility] 0530 - CT ABD/PEL W [facility] IVCON / [place] REASON: Other disorders of nervous (91069) system * * * * Physician Interpretation [...] may be contributing to the patient's symptoms. Drill Press Tender: ABRAM Transcribe Date/Time: Dec 31 2017 1:21PDictated by : PELON GARRETT MDThilakisha examination was interpreted and the report reviewed and electronically signed by: PELON GARRETT MD on Dec 31 2017 1:32PM [id number] cnco on 2017-12-31 CNCO HNO ID: [id number]: Normal 12-17 [facility] Mammography CoordinatorService: [place] ([id number]) (none)Author Type: PhysicianType: LetterFiled: 01/01/2018 11:32 PMNote Text:December 31, 2017 PID: [id number] L[address] [place], [place] [address]Zlth Ms. Cramer,We are pleased to inform you that the results of your recent breastimaging exam on 12/31/2017 are normal. Early detection of cancer is veryimportant. We also understand recommendations regarding breast cancerscreening are controversial. Please discuss with your primary careprovider which strategy is best for you and whether a mammogram is rightfor you.Your imaging studies and report will [facility] and are available for yourcontinuing care.Thank you for allowing us to help in meeting your health care needs.Sincerely,Dr. HallmanInterprejania RadiologistWst Specialty Center (Normal over 40) progress on 2017-12 Protein mass HNO ID: [id number]: Mukul payne 12-18-2017 [facility] ClineService: (none)Author Type: Clinic PhysicianType: Progress NotesFiled: [place] 12/18/2017 10:45 AMNote Text:FOLLOW UP (41792) VISITCHIEF COMPLAINTPatient presents with:Established Patient: nausea, constipationMs. Bela is here today for follow-up of: nausea [...] on 2017-12-18 CNOV Office Visit Normal 12-18-2017 Shauna and (GASTMN) --------CRYSTAL CRAMER [facility] ([id number]) 1955 FDat e Time Provider Department12/18/17 10:10 AM MUKUL STEVEN GASTMN During Clev eland your visit today, we recorde d the following information about you: Temperature Pulse Blood pressure (97441) Weight 98.3 degrees 79/minut e 139/69 120.8 kg Height 1.676 mMsaul StevenDO 12/18/2017 10:45 AM SignedFOLLOW UP VISITCHIEF Addison [...] W IVCONMukul Steven 12/18/2017Referring Provider: YOU PARKS [[id number]]Allergies As of Date: 12/18/2017 Noted Allergy ReactionBACTRIM [...] synd danica [G98.8]Order(s):CREATININE BLD [SQCRET] Order #: [id number] FUTURE KARTIK SCREENING [3671187] Orde r #: [id number] FUTURE CT ABD/PEL W IVCON [0689201] Order #: [id number] FUTURE CT CHEST W IVCON [127 0700] Order #: [id number] FUTURE iv contrast (radiology procedure)CT Chest ABD/PEL-Inject, [...] nursing protocol in the CT contrast administration [facility].Disp: 1 EachRfl: 0 enteric contrast (radiology [...] as designated per enteric contrast guidelinesEncounter Number: [id number] Status:Closed by MUKUL STEVEN DO on 12/18/17 progress on 2017-10 Protein mass HNO ID: [id number]: Cele (Rn) Normal 10-22-2017 [place] LAURIE Gomezervice: (none)Author Type: Clinic Registered NurseType: Progress [place] NotesFiled: 10/22/2017 2:24 PMNote (27902) Text:SmartPill Test Report - [id number] Test start date: 10/11/2017 9:48 AM Interpretation date: 10/22/2017 Ordering physician: Perri Aarontient Information Name: Crystal CramerFlora ID: [id number] date: 1955 Height ft. in.: 5' 6 [...] Normal 10-22-2017 [place] (GASTMN) --------CRYSTAL CRAMER L ([id number]) 1955 [facility] Department10/22/17 CELE VARGAS (ALMA) GASTMN During your [facility] visit today, we recorded the following information about you:Cele Vargas RN, RN 10/22/2017 2:24 PM ([id number]) [facility] Test Report - [id number] Test start date: 10/11/2017 9:48 AM Interpretation date: 8 Ordering physician: Radha Aaron Information Name: Crystal Cramer ID: [id number] Marlene h date: 1955 Height ft. in.: 5' [...] vomiting [R11.2] INVALID FOR*Follow-up and Disposition History RecordedEnckaylah Tomlinson mber: [id number] Status:Closed by CELE VARGAS on 10/22/17 cnpn on 2017-10-22 CNPN Telephone Normal 10-22-2017 [place] (GASTDE) --------BELACRYSTAL [facility] ([id number]) 1955 FDat e Time Provider Department10/22/17 MUKUL STEVEN GASTMN During your visit Juwan monzon today, we recorded the follo wing information about you:Manuel Meza, RN, RN 10/22/2017 5:10 PM (78137) SignedPatient is calling Dr. Steven's office to [...] pill. The gastric emptying was actually normal.Manuel Meza, RN, RN 10/23/2017 11:55 AM Sig nedCalled [...] Explained that appeal letter was faxed to [facility] regarding he r IVIG therapy. [...] Signed By: Manuel Meza RN In Department: [facility] Centerergies As of Date: 10/22/2017 Noted Allergy ReactionBACTRIM (SULFAMETHOX AZOLE-TRIMETH*07/31/2017 4 - HivesCIPROFLOXACIN 06/10/2013 16 - UnknownFLEXERIL (CYCLOBENZAP RINE) 06/10/2013 16 - UnknownMETFORMIN 06/28/2017 14 - Other: See Comments Comments: MigrainesTORADOL ( KETOROLAC) 03/22/2006band aids [Other] 05/27/2007Date Reviewed: 07/31/2017Reviewed by: Taras Steven - Fully AssessedReason for Visit: Care Coordination [6441] Cmt: Gastroparesis Clinic: Smart Pill results Patient [...] on 2017-09 Protein mass conc HNO ID: [id number]: Normal 10-11-2017 [facility] Cele (Rn) Azael Vargas ([id number]) RNService: (none)Author Type: Registered NurseType: Progress NotesFiled: 10/11/2017 10:14 AMNote Text:Referring MD: ?Teodoro Aaron: ?gastroparesisDate of SmartPill Procedure: ?10/11/2017 ?SmartPill ingested withoutdifficulty at 10:00am. ?Discharge instructions completed and given topatient.Return of Equipment: ?Micah Vargas RN Caps[facility] Endoscopy Nurse josepn on 2017-10-08 CNPN Telephone Normal 10-08-2017 [place] (GASTMN) --------CRYSTAL CRAMER [facility] ([id number]) 1955 FDat e Time Provider Department10/08/17 MUKUL STEVEN During your [place] visit today, we recorded the following information about you:Manuel Meza RN, RN 10/08/2017 4:16 PM (00 000) SignedContacted [employer] [phone] (option 1 and then option 0) to obtain acopy of patient's denial letter for IVIG. They are to fax to the office today.Manuel Meza RN, RN 10/08/2017 5:19 PM SignedReceived copy of deng l letter from [employer] 10/08/17 and forwarded toStacey at [facility].Allergies As of Date: 10/08/2017 Noted Allergy Reacti onBACTRIM (SULFAMETHOXAZOLE-TRIMETH* 4 - HivesCIPROFLOXACIN 06/10/2013 16 - UnknownFLEXERIL (CYCLOBENZAPRINE) 06/10/2013 16 - UnknownMETFORMIN 06/28/2017 14 - Other: See Comments Comments: MigrainesTORADOL (KETOROLAC) 03/22/2006band aids [Other] 05/27/2007Date Reviewed: 07/31/2017Reviewed by: Mukul Steven - Fully AssessedReason for Visit: Care Coordination [3491] Cmt: Gastroparesis Clinic: Ivig denial letter r [...] MANUEL MEZA on 10/08/17 cnpn on 2017-09-12 [facility] Normal 09-12-2017 [place] (JOSE CARLOS) --------CRYSTAL CRAMER [facility] ([id number]) 1955 FDat e Time Provider Department09/12/17 MUKUL STEVEN [facility] During your [place] visit today, we recorded the following information about you:Manuel Meza, RN, RN 09/12/2017 1:59 PM (00 000) SignedPatient calling teaganparish po Lylesmarsha is not working to control her nausea [...] - Fully AssessedReason for Visit: Care Coordination [5939] Cmt: Gastroparesis Clinic: anti nasuea mediatio n request Patient Education [91] Cmt: Phenergan/Reglan interactionReason For Visit History RecordedPr imary Visit Diagnosis:Nausea [R11.0]Order(s):promethazine (PHENERGAN) 25 mg tabletTake 1 tablet [facility] 8 hours as needed (for nausea).Disp: [...] Thyrotropin Qn 2.260 0.400-5.500 uU/mL Normal 07-31-2017 [facility] (00700) Comment: Performed By: #### CK, FT4, TSH, LD6, HBA1C, LACPYR, AAQTPL, GADCAB, CARNPL, PLTHY ####[facility] L [address] [place], [place] [phone]#### CASRFX , LG1RFX, PARNEO #### [facility]-[address] [phone] progress on 2017-07 Protein mass HNO ID: [id number]: Manuel Catrachita landry 07-31-2017 [place] leno (Rn) LAURIE Mezaervice: Clinic (none)Author Type: Registered [place] NurseType: Progress NotesFiled: ([id number]) 07/31/2017 10:55 AMNote Text:Met with patient for [...] RN In Department:GASTROENTEROLOGY Protein mass HNO ID: [id number]: Rayne stone 07-31-2017 [place] leno Odom BaumannService: Clinic (none)Author Type: C leveland PsychologistType: Progress (67453) NotesFiled: 07/31/2017 10:40 AMNote Text:Behavioral MedicineDigestive Disease and Surgery InstituteName: Crystal Mallory#: [id number]: 07/31/17Time: 1 hourReferred by: Dr. Cruz for [...] response. She was giventhe website for the [facility] and shown therelaxation recordings with the recommendation to practice this and therationale behind their use.She was urged to discuss with Dr. Steven to possible use of Cymbalta fordepression and pain, her use of opioids for her chronic pain, and thebenefits of exercise.Rayne Odom, Ph.D. plasma thymidine det on 2017-07-31 Plasma Thymidine Det View results in Normal [facility] Scanned Documents link [place] (01771) when available. Comment: Performed By: #### CK, FT4, TSH, LD6, HBA1C, LACPYR, AAQTPL, GADCAB, CARNPL, PLTHY ####[facility] [place], [place] [phone]#### CASRFX , LG1RFX, PARNEO #### [facility] [place], [place] [phone] paraneoplast autoabs on 2017-07-31 ACh Receptor Bind Ab 0.00 <=0.02 nmol/L Normal 7 [facility] (67636) Comment: Result Comment: (NOTE)------ ADDITIONAL INFORMATION --This test was developed and its performance characteristicsdetermined by [facility] in a manner consistent with CLIArequirements. This test has not been cleared or approved bythe U.S. Food and Drug Administration. Performed By: #### CK, FT4, TSH, LD6, HBA1C, LACPYR, AAQTPL, GADCAB, CARNPL, PLTHY ####[facility] [place], [place] [phone]#### CASRFX , LG1RFX, PARYOUO #### [address] [phone] AChR Ganglionic Neur 0.00 <=0.02 nmol/L Normal 7 [facility] (62510) Comment: Result Comment: (NOTE)------ ADDITIONAL INFORMATION --This test was developed and its performance characteristicsdetermined by [facility] in a manner consistent with CLIArequirements. This test has not been cleared or approved bythe U.S. Food and Drug Administration. Performed By: #### CK, FT4, TSH, LD6, HBA1C, LACPYR, AAQTPL, GADCAB, CARNPL, PLTHY ####[facility] [address] [place], [place] [phone]#### CASRFX , LG1RFX, PARNEO #### [facility] [place], [place] [phone] Amphiphysin Ab, S Negative <1:240 Normal 07-31-2017 [facility] (44351) Comment: Result Comment: (NOTE)------ ADDITIONAL INFORMATION --This test was developed and its performance characteristicsdetermined by [facility] in a manner consistent with CLIArequirements. This test has not been cleared or approved bythe U.S. Food and Drug Administration. Performed By: #### CK, FT4, TSH, LD6, HBA1C, LACPYR, AAQTPL, GADCAB, CARNPL, PLTHY ####[facility] [place], [place] [phone]#### CASRFX , LG1RFX, PARNEO #### [address] [phone] ERINN 1, S Negative <1:240 Normal 07-31-2017 [facility] (09174) Comment: Performed By: #### CK, FT4, TSH, LD6, HBA1C, LACPYR, AAQTPL, GADCAB, CARNPL, PLTHY ####[facility] [address] [place], [place] [phone]#### CASRFX , LG1RFX, PARNEO #### [facility] [place], [place] [phone] ERINN 2, S Negative <1:240 Normal 07-31-2017 [facility] (27263) Comment: Result Comment: (NOTE)------ ADDITIONAL INFORMATION --This test was developed and its performance characteristicsdetermined by [facility] in a manner consistent with CLIArequirements. This test has not been cleared or approved bythe U.S. Food and Drug Administration. Performed By: #### CK, FT4, TSH, LD6, HBA1C, LACPYR, AAQTPL, GADCAB, CARNPL, PLTHY ####[facility] [address] [place], [place] [phone]#### CASRFX , LG1RFX, PARNEO #### [facility] [place], [place] [phone] ERINN 3, S Negative <1:240 Normal 07-31-2017 [facility] ([id number]) Comment: Result Comment: (NOTE)------ ADDITIONAL INFORMATION --This test was developed and its performance characteristicsdetermined by [facility] in a manner consistent with CLIArequirements. This test has not been cleared or approved bythe U.S. Food and Drug Administration. Performed By: #### CK, FT4, TSH, LD6, HBA1C, LACPYR, AAQTPL, GADCAB, CARNPL, PLTHY ####[facility] [place], [place] [phone]#### CASRFX , LG1RFX, PARNEO #### [facility] [place], [place] [phone] Anti-glial Nuc Ab 1 Negative <1:240 Normal 07-31-2017 [facility] ([id number]) Comment: Result Comment: (NOTE)------ ADDITIONAL INFORMATION --This test was developed and its performance characteristicsdetermined by [facility] in a manner consistent with CLIArequirements. This test has not been cleared or approved bythe U.S. Food and Drug Administration. Performed By: #### CK, FT4, TSH, LD6, HBA1C, LACPYR, AAQTPL, GADCAB, CARNPL, PLTHY ####[facility] [place], [place] [phone]#### CASRFX , LG1RFX, PARNEO #### [address] [phone] Ca Ch Bind Ab,N Type 0.00 <=0.03 nmol/L Normal [facility] (10556) Comment: Result Comment: (NOTE)------ ADDITIONAL INFORMATION --This test was developed and its performance characteristicsdetermined by [facility] in a manner consistent with CLIArequirements. This test has not been cleared or approved bythe U.S. Food and Drug Administration. Performed By: #### CK, FT4, TSH, LD6, HBA1C, LACPYR, AAQTPL, GADCAB, CARNPL, PLTHY ####[facility] [place], [place] [phone]#### CASRFX , LG1RFX, PARNEO #### [address] [phone] Ca Chn Bind Ab, P/Q 0.00 <=0.02 nmol/L Normal 07-31-2017 [facility] ([id number]) Comment: Result Comment: (NOTE)------ ADDITIONAL INFORMATION --This test was developed and its performance characteristicsdetermined by [facility] in a manner consistent with CLIArequirements. This test has not been cleared or approved bythe U.S. Food and Drug Administration. Performed By: #### CK, FT4, TSH, LD6, HBA1C, LACPYR, AAQTPL, GADCAB, CARNPL, PLTHY ####[facility] [place], [place] [phone]#### CASRFX , LG1RFX, PARNEO #### [facility] [place], [place] [phone] CRMP 5 IgG, S Negative <1:240 Normal 07-31-2017 [facility] (90743) Comment: Result Comment: (NOTE)------ ADDITIONAL INFORMATION --This test was developed and its performance characteristicsdetermined by [facility] in a manner consistent with [employer]WMC[employer]. This test has not been cleared or approved bythe U.S. Food and Drug Administration. Performed By: #### CK, FT4, TSH, LD6, HBA1C, LACPYR, AAQTPL, GADCAB, CARNPL, PLTHY ####[facility] [place], [place] [phone]#### CASRFX , LG1RFX, PARNEO #### [facility] [place], [place] [phone] Interpretive Comment (NOTE) Normal 7 [facility] (08310) Comment: Result Comment: Reflexed maria del carmen t(s) performed per testing algorithm.*The following antibody was ident ified: voltage gatedpotassium channel (VGKC-complex); negative for leucine-rich, glioma inactivated 1 protein-IgG (LGI1) andContactin-associat ed [id number]-9-[id number] (CASPR2). * The resultsof a positive VGKC-complex antibo dy with negative LGI1 andCASPR2-IgGs needs to be interpreted with caution. Th edetection of the VGKC-complex antibodies in isolation doesnot define an autoimmune neurological disorder. * Aparaneoplastic basis should be considered, according toage, sex, and other risk factors. * References: Sadiq A,Garcia SJ, Otf D, Socorro Medina, Onofre JW, Candelario JE,Eusebio A, Severino griffin AL, Dung RE, Kahlil D, Elver EP,Ady VA, Rasheed CJ. Expa nded phenotypes and outcomes [id number] LGI1/CASPR2-IgG positive pat ients. Annals of Zjbyodgaa5827; 82:79-92. * Doyle B, Jeremie M, Karla T, Aliciat harjinder I,Mindhvaen S, Michelle C, Edgard W, Reginaldo C, Farhad C, Ta Torres P, Lyubov L, Brannon J, Salazar A, Mallorie P,Dustin S. Intracellular and non-neuronal targets ofvoltage-gated potassium channel complex antibodies. JNNP,December 19 2017. * van Alirio A, Martha M, Tim DM,Raysa S, Na lai M, Rolanda E, Nam RH, Eddie R,Mara P, Brijesh S, Omidr M. T he relevance of VGKCpositivity in the absence of LGI1 and Caspr2 antibodies.N eurology, 2016; 86; 6210-1428. Performed By: #### CK, FT4, TSH, LD6, HBA1C, LACPYR, AAQTPL, GADCAB, CARNPL, PLTHY ####[facility] [address] [place], [place] [phone]#### CASRFX , LG1RFX, PARNEO #### [facility] [address] [place], [place] [phone] Neur V-G K+ Chann Ab 0.11 <=0.02 nmol/L [facility] 7 [facility] (30631) Comment: Result Comment: (NOTE)------ ADDITIONAL INFORMATION --This test was developed and its performance characteristicsdetermined by [facility] in a manner consistent with CLIArequirements. This test has not been cleared or approved bythe U.S. Food and Drug Administration. Performed By: #### CK, FT4, TSH, LD6, HBA1C, LACPYR, AAQTPL, GADCAB, CARNPL, PLTHY ####[facility] [place], [place] [phone]#### CASRFX , LG1RFX, PARNEO #### [facility] [place], [place] [phone] PARNEO Reflex Tests None. Normal 07-31-2017 [facility] (09096) Comment: Result Comment: (NOTE)------ ADDITIONAL INFORMATION --This test was developed and its performance characteristicsdetermined by [facility] in a manner consistent with CLIArequirements. This test has not been cleared or approved bythe U.S. Food and Drug Administration. Performed By: #### CK, FT4, TSH, LD6, HBA1C, LACPYR, AAQTPL, GADCAB, CARNPL, PLTHY ####[facility] [place], [place] [phone]#### CASRFX , LG1RFX, PARNEO #### [facility] [place], [place] [phone] IT SUPPORT SPECIALIST 1, S Negative <1:240 Normal 07-31-2017 [facility] (74620) Comment: Result Comment: (NOTE)------ ADDITIONAL INFORMATION --This test was developed and its performance characteristicsdetermined by [facility] in a manner consistent with CLIArequirements. This test has not been cleared or approved bythe U.S. Food and Drug Administration. Performed By: #### CK, FT4, TSH, LD6, HBA1C, LACPYR, AAQTPL, GADCAB, CARNPL, PLTHY ####[facility] [address] [place], [place] [phone]#### CASRFX , LG1RFX, PARNEO #### [facility] [place], [place] [phone] IT SUPPORT SPECIALIST 2, S Negative <1:240 Normal 07-31-2017 [facility] (04312) Comment: Result Comment: (NOTE)------ ADDITIONAL INFORMATION --This test was developed and its performance characteristicsdetermined by [facility] in a manner consistent with [employer]. This test has not been cleared or approved bythe U.S. Food and Drug Administration. Performed By: #### CK, FT4, TSH, LD6, HBA1C, LACPYR, AAQTPL, GADCAB, CARNPL, PLTHY ####[facility] [address] [place], [place] [phone]#### CASRFX , LG1RFX, PARNEO #### [address] [phone] IT SUPPORT SPECIALIST Tr, S Negative <1:240 Normal 07-31-2017 [facility] ([id number]) Comment: Result Comment: (NOTE)------ ADDITIONAL INFORMATION --This test was developed and its performance characteristicsdetermined by [facility] in a manner consistent with CLIArequirements. This test has not been cleared or approved bythe U.S. Food and Drug Administration. Performed By: #### CK, FT4, TSH, LD6, HBA1C, LACPYR, AAQTPL, GADCAB, CARNPL, PLTHY ####[facility] [address] [place], [place] [phone]#### CASRFX , LG1RFX, PARNEO #### [facility] [place], [place] [phone] Striational Ab, S Negative <1:120 Normal 07-31-2017 C [facility] (44011) Comment: Result Comment: (NOTE)------ ADDITIONAL INFORMATION --This test was developed and its performance characteristicsdetermined by [facility] in a manner consistent with CLIArequirements. This test has not been cleared or approved bythe U.S. Food and Drug Administration. Performed By: #### CK, FT4, TSH, LD6, HBA1C, LACPYR, AAQTPL, GADCAB, CARNPL, PLTHY ####[facility] [place], [place] [phone]#### CASRFX , LG1RFX, PARNEO #### [address] [phone] lgi1-igg reflex on 2017-07-31 LGI1-IGG CBA SERUM Negative Negative Normal 07-31-2017 [facility] (57228) Comment: Result Comment: (NOTE)------ ADDITIONAL INFORMATION --This test was developed and its performance characteristicsdetermined by [facility] in a manner consistent with CLIArequirements. This test has not been cleared or approved bythe U.S. Food and Drug Administration. Performed By: #### CK, FT4, TSH, LD6, HBA1C, LACPYR, AAQTPL, GADCAB, CARNPL, PLTHY ####[facility] [address] [place], [place] [phone]#### CASRFX , LG1RFX, PARNEO #### [facility] [place], [place] [phone] ld on 2017-07-31 LD 241 135-214 U/L High 07-31-2017 [facility] (23457) Comment: Performed By: #### CK, FT4, TSH, LD6, HBA1C, LACPYR, AAQTPL, GADCAB, CARNPL, PLTHY ####[facility] [address] [place], [place] [phone]#### CASRFX , LG1RFX, PARNEO #### [facility] [place], [place] [phone] lactate/pyruvate on 2017-07-31 Lactate molar conc 2.1 0.5-2.2 mmol/L Normal 07-31-2017 [facility] (21522) Comment: Performed By: #### CK, FT4, TSH, LD6, HBA1C, LACPYR, AAQTPL, GADCAB, CARNPL, PLTHY ####[facility] [address] [place], [place] [phone]#### CASRFX , LG1RFX, PARNEO #### [facility] [place], [place] [phone] Pyruvate 0.15 0.03-0.08 mmol/L High 07-31-2017 [facility] (54372) Comment: Result Comment: Specimen was not treated within the desired 30 minute time. Pyruvate result may be false ly decreased and lactate result may be falsely elevated. Performed By: #### CK, FT4, TSH, LD6, HBA1C, LACPYR, AAQTPL, GADCAB, CARNPL, PLTHY ####[facility] [address] [place], [place] [phone]#### CASRFX , LG1RFX, PARNEO #### [facility] [place], [place] [phone] hemoglobin a1c on 2 Glucose mass conc >240 mg/dL Normal 07-31-2017 [facility] ([id number]) Comment: Result Comment: eAG: (Estima patrick average glucose) is a calculated value from HgbA1c and is pest control service representative of the average blood glucose level in the last 2-3 month period. Performed By: #### CK, FT4, TSH, LD6, HBA1C, LACPYR, AAQTPL, GADCAB, CARNPL, PLTHY ####[facility] [address] [place], [place] [phone]#### CASRFX , LG1RFX, PARNEO #### [facility] [place], [place] [phone] Hemoglobin A1c/Hemoglobin.total 10.7 4.3-5.6 % High 07-31-2017 [facility] mass fraction (Bld) [place] (99380) Comment: Result Comment: [place] [employer] guidelines indicate that patients with HgbA1c in the range 5.7-6.4% are at increased risk for development of diabetes, and intervention by lifestyle modification may be beneficial. HgbA1c greater o r equal to 6.5% is considered diagnostic of diabetes. Performed By: #### CK, FT4, TSH, LD6, HBA1C, LACPYR, AAQTPL, GADCAB, CARNPL, PLTHY ####[facility] [address] [place], [place] [phone]#### CASRFX , LG1RFX, PARNEO #### [facility] [place], [place] [phone] glutamic ac decar ab on 2017-07-31 Glutamic Ac Decar Ab <5.0 <5.0 Normal 7 [facility] ([id number]) Comment: Performed By: #### CK, FT4, TSH, LD6, HBA1C, LACPYR, AAQTPL, GADCAB, CARNPL, PLTHY ####[facility] [address] [place], [place] [phone]#### CASRFX , LG1RFX, PARNEO #### [facility] [facility] [place], [place] [phone] free t4 on T4 free mass conc 1.2 0.9-1.7 ng/dL Normal 07-31-2017 C [facility] (95966) Comment: Performed By: #### CK, FT4, TSH, LD6, HBA1C, LACPYR, AAQTPL, GADCAB, CARNPL, PLTHY ####[facility] [address] [place], [place] [phone]#### CASRFX , LG1RFX, PARNEO #### [facility] [place], [place] [phone] cnov on 2017-07-31 CNOV Office Visit Normal 07-31-2017 [place] and (GASTMN) --------CRYSTAL CRAMER [facility] ([id number]) 1955 FDat e Time Provider Eqzvjcivgc26/13/17 10:00 AM MUKUL STEVEN GASTMN During [facility] your visit today, we recorde d the following information about you: Temperature Pulse Blood pressure () Weight 98.6 degrees 68/minut e 175/87 107 kg Height 1.676 mMsaul Steven DO 07/31/2017 10:10 AM SignedGASTROPARESIS CONSULTP [facility] You Parks for an opinion regarding GP andmy final recommendations will be communicated back to the requesting physicianby way of a copy of today's office notes.PRESENT ING COMPLAINT ANDamp; HISTORYCrystal is a 61 year old female with [...] mg 2x per day (taking for 2years); Mansura 4x per day (20 years). Diet: eats [...] mg 2x per day(taking for 2 years); Mansura 4x per day (20 years)Drug use- History or current drug use (Marijuana, Cocaine, Heroine , etc...) NoEating Disorders- Does the patient have a history of eating disorders NoPsychiatric Diso rders- Does the patient have a history of psychiatric disorders including PTSD: NoNutrition- Has the p atient met with a sliver lap machine tender for diet recommendations withGastroparesis? No - Jejunostomy [...] Cramer Age [age] year old MRN [id number] ConsultTest Date Completed ResultsLabsEGD [facility] Findings:The examined [...] no ev idence of dysplasia.Gastric Emptying Study [facility] FINDINGS:At 30 minutes post ingestion, ther e [...] .?IMPRESSION:Markedly delayed solid gastric emptying.Gastric Emptying Study [facility] Findings:Initially static images were obtained after the [...] the end of 3 hours.XR Upper GI [facility] Impression:1. Findings described above con sistent with gastritis and duodenitis withmultiple small superficial ulcerations and mucosal fold thickening. No largeulcers or masses are identified.2. Multiple spontaneous episodes of GE r eflux to the level above the clavicles.There also are tertiary contractions consistent with presbyesophagus. Noevidence of esophageal ulceration or stricture is seen. Correlate clinically.3 . Chronic changes as described above.ConsultsGI [address], [facility] SUBJECTIVE: Crystal chen s last seen [...] HISTORYProcedure Laterality Date- COLONOSCOP W/ OR W/O [facility] SPEC 06/19/2013 Colonoscopy- COLONOSCOPY W/BX 05/27/07- [...] CAPSULE ENDOSCOPY SMART mirtazapine (REMERON) 15 mg tabletMichael Maurizio, DO2016Referring Provider: YOU PARKS [[id number]]Allergies As of Date: 07/31/2017 Noted Aller gy ReactionBACTRIM (SULFAMETHOXAZOLE- TRIMETH*07/31/2017 4 - HivesCIPROFLOXACIN 3 16 - UnknownFLEXERIL (CYCLOBENZAPRINE) 06/10/2013 16 - UnknownMETFORMIN 06/28/2017 14 - Other: See C omments Comments: MigrainesTORADOL (KETOROLAC) 03/22/2006band aids [Other] 05/27/2007Date Reviewed: Reviewed by: Mukul Steven - Fully AssessedReason for Visit: Consult [502] Cmt: Gastropar esisPrimary Visit Diagnosis:Gastroparesis [K31.84]Order(s):CK CREATINE KINASE [SQCK] Order #: [id number] FUTURE LD LACTATE DEHYDRO [SQLD6] Order #: [id number] FUTURE HGB A1C [EKXIF1Q] Order #: [id number] FUTURE TSH BLD [SQTSH] Order #: [id number] FUTURE T4 FREE/FREE THYROX [SQFT4] Order #: [id number] FUTURE PYRUVATE+LACTATE BL [SQLACPYR] Order #: [id number] FUTURE AMINO ACID QUANT BLD [SQAAQTPL] Or batsheva #: [id number] FUTURE CARNITINE FREE/TOTAL, PLASMA [SQCARNPL] Order #: [id number] FUTURE PARANEOPLA ST AUTOABS [SQPARNEO] Order #: [id number] FUTURE GLUTAMIC AC DECARBOXYLASE AB [SQGADCAB] Order #: [id number] FUTURE PLASMA THYMIDINE DETERMINATION [SQPLTHY] Order #: [id number] FUTURE CAPSULE ENDOSCOPY SMA RT [] Order #: [id number] FUTURE mirtazapine (REMERON) 15 mg tabletTake 1 [...] Status:Closed by MUKUL STEVEN DO on 10/01/16 CNOV Office Visit Normal 07-31-2017 Shauna and (SVEN) --------CRYSTAL CRAMER ([id number]) 1955 [facility] e Time Provider Qhqjspluer20/13/17 9:00 AM RAYNE COOK During your visit today, we recorded the following information about you:Rayne Odom, PHD ([id number]) 07/31/2017 10:40 AM SignedBe State Reform School for BoysDigestive Disease and Surgery InstituteName: Crystal [place]#: [id number]: 07/19 11/02Time: 1 hourRef[address]: Dr. Cruz [...] elly response. She was given the website [employer] [facility] and shown the relaxa tion recordings withthe recommendation to practice this and the rationale behind their use.She was urg ed to discuss with Dr. Steven to possible use of Cymbalta fordepression and pain, her use of opioids for her chronic pain, and the benefitsof exercise.Rayne Odom, Ph.D.Referring Provider: MUKUL RUIZ [[id number]]Allergies As of Date: 07/31/2017 Noted Allergy ReactionBACTRIM (SULFAMETHOX AZOLE-TRIMETH*07/31/2017 4 - HivesCIPROFLOXACIN 06/10/2013 16 - UnknownFLEXERIL (CYCLOBENZAP RINE) 06/10/2013 16 - UnknownMETFORMIN 06/28/2017 14 - Other: See Comments Comments: MigrainesTORADOL ( KETOROLAC) 03/22/2006band aids [Other] 05/27/2007Date Reviewed: 07/31/2017Reviewed by: Taras Steven - Fully AssessedPrimary Visit Diagnosis:Non-intractable vomiting [...] APSULE,SARA* Take 40 mg by mouth once ailcia* VICODIN ORAL Take by mouth.Problem List As Of Eyad e 07/31/2017 Noted Resolved TB LUNG NODULAR-UNSPEC [A15.0] INVALID FOR* DIARRHEA NOS [R19.7] INVALID FOR* Nausea AND vomiting [R11.2] INVALID FOR* Status:Closed by DONOVAN COOK PHD on 07/31/17 cnnurse on CNNURSE Nurse Visit Normal 07-31-2017 Skip kennedy (GASTMN) --------CRYSTAL CRAMER [facility] ([id number]) 1955 FDat e Time Provider Xdyeuldpzx09/13/17 10:30 AM NURSE PT ED KOBE GASTMN [...] In Department: GASTROENTEROLOGYReferring Pr ovider: HARVEY BELCHER [[id number]]Allergies As of Date: 07/31/2017 Noted Allergy ReactionBACTRI [...] act/vol 54 42-196 U/L Normal 07-31-2017 C [facility] ([id number]) Comment: Result Comment: Please note the updated, gender-specific reference range for this test (effective 016). Performed By: #### CK, FT4, TSH, LD6, HBA1C, LACPYR, AAQTPL, GADCAB, CARNPL, PLTHY ####[facility] L [address] [place], [place] [phone]#### CASRFX , LG1RFX, PARNEO #### [facility] LabJordan [address] [place], [place] [phone] caspr2-igg reflex o n 2017-07-31 CASPR2-IGG CBA SERUM Negative Negative Normal 7 [facility] (25065) Comment: Result Comment: (NOTE)------ ADDITIONAL INFORMATION --This test was developed and its performance characteristicsdetermined by [facility] in a manner consistent with CLIArequirements. This test has not been cleared or approved bythe U.S. Food and Drug Administration. Performed By: #### CK, FT4, TSH, LD6, HBA1C, LACPYR, AAQTPL, GADCAB, CARNPL, PLTHY ####[facility] L [address] [place], [place] [phone]#### CASRFX , LG1RFX, PARNEO #### [facility]-[address] [phone] carnitine fr/tot, pl on 2017-07-31 Carnitine Interp (NOTE) Normal 07-31-2017 [facility] (56228) Comment: Result Comment: This assay o f [...] characteristics determinedby the Pathology and Laboratory Medicine [place] at the [facility]. The U.S. Food and Drug Administration has not approved orcleared this test , however, FDA clearance or approval is not currentlyrequired for clinic al use. Performed By: #### CK, FT4, TSH, LD6, HBA1C, LACPYR, AAQTPL, GADCAB, CARNPL, PLTHY ####[facility] [address] [place], [place] [phone]#### CASRFX , LG1RFX, PARNEO #### [facility] [place], [place] [phone] Carnitine Review Reviewed by [facility] Normal 07-19 [facility] MD Kayode, PhD [facility] ([id number]) (09902) Comment: Performed By: #### CK, FT4, TSH, LD6, HBA1C, LACPYR, AAQTPL, GADCAB, CARNPL, PLTHY ####[facility] [place], [place] [phone]#### CASRFX , LG1RFX, PARNEO #### [facility] [place], [place] [phone] Free L-Carnitine 29 22-52 umol/L Normal 07-31-2017 [facility] (77754) Comment: Performed By: #### CK, FT4, TSH, LD6, HBA1C, LACPYR, AAQTPL, GADCAB, CARNPL, PLTHY ####[facility] [place], [place] [phone]#### CASRFX , LG1RFX, PARNEO #### [facility] [place], [place] [phone] Free/Tot Carn Ratio 0.725 0.7-0.9 Normal 07-31-2017 [facility] (55637) Comment: Performed By: #### CK, FT4, TSH, LD6, HBA1C, LACPYR, AAQTPL, GADCAB, CARNPL, PLTHY ####[facility] [address] [place], [place] [phone]#### CASRFX , LG1RFX, PARNEO #### [facility] [place], [place] [phone] Total L-Carnitine 40 27-66 umol/L Normal 07-31-2017 [facility] (83301) Comment: Performed By: #### CK, FT4, TSH, LD6, HBA1C, LACPYR, AAQTPL, GADCAB, CARNPL, PLTHY ####[facility] [address] [place], [place] [phone]#### CASRFX , LG1RFX, PARNEO #### [facility] [place], [place] [phone] amino acids quant,pl on 2017-07-31 Alanine 389 177-583 um/L Normal 07-31-2017 [facility] (79907) Comment: Performed By: #### CK, FT4, TSH, LD6, HBA1C, LACPYR, AAQTPL, GADCAB, CARNPL, PLTHY ####[facility] [address] [place], [place] [phone]#### CASRFX , LG1RFX, PARNEO #### [facility] [place], [place] [phone] Alloisoleucine 0 0-2 um/L Normal 07-31-2017 [facility] (87917) Comment: Performed By: #### CK, FT4, TSH, LD6, HBA1C, LACPYR, AAQTPL, GADCAB, CARNPL, PLTHY ####[facility] [place], [place] [phone]#### CASRFX , LG1RFX, PARNEO #### [facility] [place], [place] [phone] Alpha-aminoadipic Ac 0 0-6 um/L Normal 7 [facility] (66053) Comment: Performed By: #### CK, FT4, TSH, LD6, HBA1C, LACPYR, AAQTPL, GADCAB, CARNPL, PLTHY ####[facility] [place], [place] [phone]#### CASRFX , LG1RFX, PARNEO #### [facility] [place], [place] [phone] Review Reviewed by [place] Normal 07-31-2017 [facility] Jodee, Ph.D. Suman case (17678) Comment: Performed By: #### CK, FT4, TSH, LD6, HBA1C, LACPYR, AAQTPL, GADCAB, CARNPL, PLTHY ####[facility] [place], [place] [phone]#### CASRFX , LG1RFX, PARNEO #### [facility] [place], [place] [phone] Arginine 19 15-128 um/L Normal 07-31-2017 [facility] (33250) Comment: Performed By: #### CK, FT4, TSH, LD6, HBA1C, LACPYR, AAQTPL, GADCAB, CARNPL, PLTHY ####[facility] [address] [place], [place] [phone]#### CASRFX , LG1RFX, PARNEO #### [facility] [place], [place] [phone] Asparagine 30 35-74 um/L Low 07-31-2017 [facility] (95217) Comment: Performed By: #### CK, FT4, TSH, LD6, HBA1C, LACPYR, AAQTPL, GADCAB, CARNPL, PLTHY ####[facility] [address] [place], [place] [phone]#### CASRFX , LG1RFX, PARNEO #### [facility] [place], [place] [phone] Aspartic Acid 6 1-25 um/L Normal 07-31-2017 [facility] ([id number]) Comment: Performed By: #### CK, FT4, TSH, LD6, HBA1C, LACPYR, AAQTPL, GADCAB, CARNPL, PLTHY ####[facility] [address] [place], [place] [phone]#### CASRFX , LG1RFX, PARNEO #### [facility] [place], [place] [phone] Citrulline 24 12-55 um/L Normal 07-31-2017 [facility] ([id number]) Comment: Performed By: #### CK, FT4, TSH, LD6, HBA1C, LACPYR, AAQTPL, GADCAB, CARNPL, PLTHY ####[facility] [address] [place], [place] [phone]#### CASRFX , LG1RFX, PARNEO #### [facility] [place], [place] [phone] Cystine 42 5-82 um/L Normal 07-31-2017 [facility] ([id number]) Comment: Performed By: #### CK, FT4, TSH, LD6, HBA1C, LACPYR, AAQTPL, GADCAB, CARNPL, PLTHY ####[facility] [address] [place], [place] [phone]#### CASRFX , LG1RFX, PARNEO #### [facility] [place], [place] [phone] Glutamic Acid 130 10-131 um/L Normal 07-31-2017 [facility] ([id number]) Comment: Performed By: #### CK, FT4, TSH, LD6, HBA1C, LACPYR, AAQTPL, GADCAB, CARNPL, PLTHY ####[facility] [address] [place], [place] [phone]#### CASRFX , LG1RFX, PARNEO #### [facility] [place], [place] [phone] Glutamine 391 205-756 um/L Normal 07-31-2017 [facility] ([id number]) Comment: Performed By: #### CK, FT4, TSH, LD6, HBA1C, LACPYR, AAQTPL, GADCAB, CARNPL, PLTHY ####[facility] [address] [place], [place] [phone]#### CASRFX , LG1RFX, PARNEO #### [facility] [place], [place] [phone] Glycine 139 151-490 um/L Low 07-31-2017 [facility] ([id number]) Comment: Performed By: #### CK, FT4, TSH, LD6, HBA1C, LACPYR, AAQTPL, GADCAB, CARNPL, PLTHY ####[facility] [address] [place], [place] [phone]#### CASRFX , LG1RFX, PARNEO #### [facility] [place], [place] [phone] Histidine 55 72-124 um/L Low 07-31-2017 [facility] ([id number]) Comment: Performed By: #### CK, FT4, TSH, LD6, HBA1C, LACPYR, AAQTPL, GADCAB, CARNPL, PLTHY ####[facility] [address] [place], [place] [phone]#### CASRFX , LG1RFX, PARNEO #### [facility] [place], [place] [phone] Hydroxylysine 1 0 um/L High 07-31-2017 [facility] ([id number]) Comment: Performed By: #### CK, FT4, TSH, LD6, HBA1C, LACPYR, AAQTPL, GADCAB, CARNPL, PLTHY ####[facility] [address] [place], [place] [phone]#### CASRFX , LG1RFX, PARNEO #### [facility] [place], [place] [phone] Hydroxyproline 10 0-53 um/L Normal 07-31-2017 [facility] ([id number]) Comment: Performed By: #### CK, FT4, TSH, LD6, HBA1C, LACPYR, AAQTPL, GADCAB, CARNPL, PLTHY ####[facility] [place], [place] [phone]#### CASRFX , LG1RFX, PARNEO #### [facility] [place], [place] [phone] Interpretation (NOTE) Normal 07-31-2017 [facility] ([id number]) Comment: Result Comment: THIS PLASMA AMINO ACID ANALYSIS SHOWS LOW LEVELS OF SEVERAL AMINOACIDS SUGGESTING REDUCE D DIETARY AMINO ACID INTAKE. Date of Analysis:08/02/17 Date of Re view: 08/02/17 Reference intervals from Christina Ronquillo MG, Floyd GEORGE, marsha CROCKER: Biochemical Genetics: A Laboratory Manual, Copyright 1989 by [facility] [employer] Reference intervals not established for some ami no acids. This test was developed and its performance characteristics determined by [facility]'s Jenny JFlora [facility] Pathology and [facility] ([facility]). It has not been cleared or approved by the FDA. [facility] is regulated under CLIA as qualified to perform high-co mplexity testing. This test is used for clinical purposes. It should not be r egarded as investigational or for research. Performed By: #### CK, FT4, TSH, LD6, HBA1C, LACPYR, AAQTPL, GADCAB, CARNPL, PLTHY ####[facility] [place], [place] [phone]#### CASRFX , LG1RFX, PARNEO #### [facility] [place], [place] [phone] Isoleucine 51 30-108 um/L Normal 07-31-2017 [facility] ([id number]) Comment: Performed By: #### CK, FT4, TSH, LD6, HBA1C, LACPYR, AAQTPL, GADCAB, CARNPL, PLTHY ####[facility] [place], [place] [phone]#### CASRFX , LG1RFX, PARNEO #### [facility] [place], [place] [phone] Leucine 83 72-201 um/L Normal 07-31-2017 [facility] ([id number]) Comment: Performed By: #### CK, FT4, TSH, LD6, HBA1C, LACPYR, AAQTPL, GADCAB, CARNPL, PLTHY ####[facility] [place], [place] [phone]#### CASRFX , LG1RFX, PARNEO #### [facility] [place], [place] [phone] Lysine 116 116-296 um/L Normal 07-31-2017 [facility] ([id number]) Comment: Performed By: #### CK, FT4, TSH, LD6, HBA1C, LACPYR, AAQTPL, GADCAB, CARNPL, PLTHY ####[facility] [address] [place], [place] [phone]#### CASRFX , LG1RFX, PARNEO #### [facility] [place], [place] [phone] Methionine 13 10-42 um/L Normal 07-31-2017 [facility] ([id number]) Comment: Performed By: #### CK, FT4, TSH, LD6, HBA1C, LACPYR, AAQTPL, GADCAB, CARNPL, PLTHY ####[facility] [address] [place] [address], [place] [phone]#### CASRFX , LG1RFX, PARNEO #### [facility] [place], [place] [phone] Ornithine 73 48-195 um/L Normal 07-31-2017 [facility] ([id number]) Comment: Performed By: #### CK, FT4, TSH, LD6, HBA1C, LACPYR, AAQTPL, GADCAB, CARNPL, PLTHY ####[facility] [address] [place] [address], [place] [phone]#### CASRFX , LG1RFX, PARNEO #### [facility] [place], [place] [phone] Phenylalanine 49 35-85 um/L Normal 07-31-2017 [facility] (96935) Comment: Performed By: #### CK, FT4, TSH, LD6, HBA1C, LACPYR, AAQTPL, GADCAB, CARNPL, PLTHY ####[facility] [address] [place] [address], [place] [phone]#### CASRFX , LG1RFX, PARNEO #### [facility] [place], [place] [phone] Proline 229 97-329 um/L Normal 07-31-2017 [facility] (77985) Comment: Performed By: #### CK, FT4, TSH, LD6, HBA1C, LACPYR, AAQTPL, GADCAB, CARNPL, PLTHY ####[facility] [address] [place], [place] [phone]#### CASRFX , LG1RFX, PARNEO #### [facility] [place], [place] [phone] Sarcosine 0 0 um/L Normal 07-31-2017 [facility] (85051) Comment: Performed By: #### CK, FT4, TSH, LD6, HBA1C, LACPYR, AAQTPL, GADCAB, CARNPL, PLTHY ####[facility] [address] [place], [place] [phone]#### CASRFX , LG1RFX, PARNEO #### [facility] [place], [place] [phone] Serine 59 58-181 um/L Normal 07-31-2017 [facility] (39584) Comment: Performed By: #### CK, FT4, TSH, LD6, HBA1C, LACPYR, AAQTPL, GADCAB, CARNPL, PLTHY ####[facility] [address] [place], [place] [phone]#### CASRFX , LG1RFX, PARNEO #### [facility] [place], [place] [phone] Taurine 61 54-210 um/L Normal 07-31-2017 [facility] (75235) Comment: Performed By: #### CK, FT4, TSH, LD6, HBA1C, LACPYR, AAQTPL, GADCAB, CARNPL, PLTHY ####[facility] [address] [place], [place] [phone]#### CASRFX , LG1RFX, PARNEO #### [facility] [facility] [place], [place] [phone] Threonine 59 60-225 um/L Low 07-31-2017 [facility] ([id number]) Comment: Performed By: #### CK, FT4, TSH, LD6, HBA1C, LACPYR, AAQTPL, GADCAB, CARNPL, PLTHY ####[facility] [address] [place] [address], [place] [phone]#### CASRFX , LG1RFX, PARNEO #### [facility] [place], [place] [phone] Tyrosine 51 34-112 um/L Normal 07-31-2017 [facility] (53025) Comment: Performed By: #### CK, FT4, TSH, LD6, HBA1C, LACPYR, AAQTPL, GADCAB, CARNPL, PLTHY ####[facility] [address] [place] [address], [place] [phone]#### CASRFX , LG1RFX, PARNEO #### [facility] [place], [place] [phone] Valine 175 119-336 um/L Normal 07-31-2017 [facility] (48889) Comment: Performed By: #### CK, FT4, TSH, LD6, HBA1C, LACPYR, AAQTPL, GADCAB, CARNPL, PLTHY ####[facility] [address] [place] [address], [place] [phone]#### CASRFX , LG1RFX, PARNEO #### [facility] [facility] Hospital[facility] [place], [place] [phone] nm gastric emptying solid on 2017-07-19 [place] GASTRIC Performed at [facility] APPROVED BY: [facility] Rodolfo Mcmahan MD ([id number]) EXAMINATION: NM GASTRIC EMPTYING STUDY EXAM DATE: [...] 07-19-2017 - Ambulatory Nausea with HARVEY FAJARDO [facility] 07-20-2017 vomiting, INOCENTETT [facility] unspecified ([id number]) 07-08-2017 Ambulatory [facility] Facility:[facility] 03-29-2020 - Patient encounter External [facility] 03-29-2020 procedure Provider 08-31-2018 Patient encounter [facility] - Facility: [facility] procedure [facility] 07-23-2018 - Patient encounter AYANA LOPEZ) [facility] 07-23-2018 procedure [facility] (0000 0) 05-23-2018 - Patient encounter [facility] 05-26-2018 procedure [place] (0000 0) 12-31-2017 - Patient encounter MUKUL [facility] 12-31-2017 procedure [place] (0000 0) 12-31-2017 - Patient encounter MUKUL Valdivia [facility] 12-31-2017 procedure [place] (0000 0) 12-31-2017 - Patient encounter MUKUL Valdivia [facility] 01-01-2018 procedure [place] (0000 0) 12-18-2017 - Patient encounter MUKUL Valdivia [facility] 12-18-2017 procedure YOU JOHNSON [place] (0000 0) [place] 10-22-2017 - [facility] 10-22-2017 procedure [facility]UL [place] (0 0000) 10-11-2017 - [facility] 10-11-2017 [facility] [place] (0000 0) 07-31-2017 - [facility] 08-08-2017 procedure HARVEY FAJARDO [place] (0000 0) BUCKY STUBBS MUKUL Banuelos [facility] 03-29-2020 Results Only External External-NonCCF Provider Procedures Procedure Name Date Provider Location EXTERNAL IMAGING 03-29-2020 External Provider [place] [facility] ([id number]) Mammography 12-31-2017 [facility] (64830) Plan of Treatment Plan Description Date Location INFLUENZA (#1) INFLUENZA (#1) 2020 [facility] ([id number]) ADVANCE DIRECTIVE ADVANCE DIRECTIVE 2019 [facility] inic DISCUSSION DISCUSSION (88026) BONE DENSITY BONE DENSITY 2019 [facility] ([id number]) PNEUMOVAX AGE 65 AND OVER PNEUMOVAX AGE 65 AND OVER 2019 [facility] WITH 5YR LOOKBACK (#1) WITH 5YR LOOKBACK (#1) (2 [phone]) MAMMOGRAM MAMMOGRAM 12-31-2018 [facility] (65398) COLORECTAL CANCER COLORECTAL CANCER 06-19-2018 [facility] SCREENING,SEE MODIFIER SCREENING,SEE MODIFIER (9 5835) HBA1C HBA1C 10-29-2017 [facility] (77959) LDL CHOLESTEROL LDL CHOLESTEROL 11-12-2015 [facility] (06838) SHINGRIX VACCINE (1 of 2) SHINGRIX VACCINE (1 of 2) 2004 [facility] (19513) DTAP,TDAP,TD (1 - Tdap) DTAP,TDAP,TD (1 - Tdap) 1973 [facility] (75551) ANNUAL PCP TEAM CHRONIC ANNUAL PCP TEAM CHRONIC 1972 [facility] DISEASE VISIT DISEASE VISIT (30469) HEPATITIS C SCREENING HEPATITIS C SCREENING 1972 [facility] (96079) HIV SCREENING HIV SCREENING 1972 [facility] (75720) DIABETIC FOOT EXAM DIABETIC FOOT EXAM 1964 [facility] (34679) URINE ALBUMIN:CREATININE URINE ALBUMIN:CREATININE 1964 [facility] RATIO RATIO (41988) DILATED RETINAL EXAM DILATED RETINAL EXAM 1964 [facility] (34250) Payers Payer Name Policy Number Location [employer] [id number] [facility] ([id number]) [employer] [facility] [id number] [facility] (78829) The following information is from the original human readable contentNo Payer Records FoundNo Payer Records FoundNo Payer Records FoundNo Payer Records FoundNo Payer Records FoundNo Payer Records FoundNo Payer Records Found Social History Type Social History Description Date Locat ion Tobacco smoking status Never smoker 07-23-2018 [facility] (75252) NHIS Tobacco use and exposure Never used 07-23-2018 [facility] (07542) Alcohol intake Current non-drinker of 07-23-2018 [facility] (21220) alcohol (finding) Sex Assigned At Not on file [facility] (88906) The following information is from the original [...] BE BASED ON THE PRIMARY CLINICAL RECORDS. [facility] provides no warranty or guarantee of the accuracy or completeness of information in this document. UNRECOGNIZED CONTENT PROVIDED BELOW FOR UNRECOGNIZED SECTION INFORMATION SOURCE DATE CREATED AUTHOR AUTHOR'S ORGANIZATIO N 02/11/2018 [facility] DATE CREATED AUTHOR AUTHOR'S ORGANIZATIO N 02/11/2018 [facility] DATE CREATED AUTHOR AUTHOR'S ORGANIZATIO N 07/29/2018 [facility] DATE CREATED AUTHOR AUTHOR'S ORGANIZATIO N 09/03/2018 [facility] DATE CREATED AUTHOR AUTHOR'S ORGANIZATIO N 07/29/2020 [facility] Found [place] ([place]) UNRECOGNIZED CONTENT PROVIDED BELOW FOR UNRECOGNIZED SECTION Source Comments In the event this information is protected by the Federal Confidentiality of Alcohol and Drug Abuse Patient Records regulations: The Federal rules restrict any use of the information to criminally investigate or prosecute any alcohol or drug abuse patient.[facility]
--- OUTSIDE RECORDS SUMMARY | 2020-08-10 05:29 | XMS RPT_ITS | CCD ---
:1955 External Reference #:[id number] Author Organization [facility] Care Team Providers Name Role Phone [...] S Unavailable Unavailable SHAHEEN (RN) Unavailable Unavailable [facility] Clinical [facility] Attending Unavailable Rui Parks Primary Care Provider Allergies Reported Allergen Reaction(s) Severity Date of Location Onset ciprofloxacin Rash Unknown, 06-10-2013 - [facility] Translations: [ Moderate Other [place] CIPROFLOXACIN, Repository CIPROFLOXACIN, CIPROFLOXACIN] cyclobenzaprine Rash Unknown, 06-10-2013 - [facility] Translations: [ Moderate Other [place] CYCLOBENZAPRINE, Repository CYCLOBENZAPRINE, CYCLOBENZAPRINE] ketorolac Translations: Other: See Unknown, High 03-22-2006 - [facility] [ KETOROLAC, KETOROLAC, Comments Ot r [place] KETOROLAC] Repository metFORMIN Translations: Other: See 06-28-2017 - [facility] [ METFORMIN, METFORMIN, Comments Ot r [place] METFORMIN] Repository Sulfamethoxazole / Hives Unknown, High 07-31-2017 - [facility] Trimethoprim Main [place] Translations: [ Repository SULFAMETHOXAZOLE-TRIMET HOPRIM] OTHER Translations: [ 05-27-2007 - [facility] OTHER, OTHER, OTHER] Other C [facility] Repository Medications Medication Name Sig Date Prescriber Location Allopurinol allopurinol (ZYLOPRIM) [facility] Provider [facility] 100 mg tablet Take 100 Provider (4419 5) mg by mouth once daily. 0 Active Comment: Take 100 mg by mouth once da jeffy. Aspirin aspirin, enteric coated [facility] Provider [facility] (95258) (ASPIRIN, ENTERIC COATED) Provider 81 mg EC tablet Take 81 mg by mouth once daily. 0 Active Comment: Take 81 mg by mouth once [place]ty [place]. Haloperidol haloperidol (HALDOL) 0.5 [facility] Provider [facility] mg tablet Take 0.5 mg by Provider (13 195) mouth twice daily. 0 Active Comment: Take 0.5 mg by mouth twice d aily. HYDROCODONE HYDROCODONE [facility] Provider [facility] BIT/ACETAMINOPHEN BIT/ACETAMINOPHEN Provider (0099 5) (VICODIN ORAL) (VICODIN ORAL) Take by mouth. 0 Active Comment: Take by mouth. insulin degludec INSULIN DEGLUDEC (TRESIBA Ccf Provide r [facility] FLEXTOUCH U-100 Provider (65164) SUBCUTANEOUS) Inject 120 mg subcutaneously once daily. 0 Active Comment: Inject 120 mg subcutaneously once daily. lamoTRIgine lamoTRIgine (LAMICTAL) 100 [facility] Provider [facility] mg tablet Take 100 mg by Provider (98 196) mouth twice daily. 0 Active Comment: Take 100 mg by mouth twice d aily. levothyroxine Levothyroxine 50 mcg cap [facility] Provider [facility] Take by mouth once daily. Provider (5 4695) 0 Active Comment: Take by mouth once daily. Methadone methadone (DOLOPHINE) 5 mg [facility] Provider [facility] (36959) tablet Take 10 mg by mouth Provider once daily. At bedtime 0 Active Comment: Take 10 mg by mouth once scotty ly. At bedtime montelukast montelukast (SINGULAIR) 10 [facility] Provider [facility] mg tablet Take 10 mg by Provider (785 95) mouth daily at bedtime. 0 Active Comment: Take 10 mg by mouth daily at bedtime. Morphine morphine IR 15 mg tablet [facility] Provider [facility] (98519) Take 15 mg by mouth every Provider 4 hours as needed. 0 Active Comment: Take 15 mg by mouth every 4 hours as needed. naloxegol naloxegol (MOVANTIK) 25 mg [facility] Provider [facility] (20368) tablet Take 25 mg by mouth Provider once daily. 0 Active Comment: Take 25 mg by mouth once scotty ly. Omeprazole Omeprazole 40 mg capsule [facility] Provider [facility] (50714) Take 40 mg by mouth once Provider daily. 0 Active Comment: Take 40 mg by mouth once scotty ly. Ondansetron ondansetron orally 03-03-2018 [facility] disintegrating (ZOFRAN [facility] (4 4295) ODT) 8 mg disintegrating tablet Take 1 tablet by mouth every 8 hours as needed. 90 tablet 6 03/03/2018 Active Comment: Take 1 tablet by mouth every 8 hours as needed. pregabalin pregabalin (LYRICA) 75 mg [facility] Provider [facility] (77203) capsule Take 150 mg by Provider mouth twice daily. 0 Active Comment: Take 150 mg by mouth twice d aily. Promethazine promethazine (PHENERGAN) 12-18-2017 [facility] 25 mg tablet Take 1 (28876) tablet by mouth every 8 hours as needed (for nausea). 90 tablet 6 12/18/2017 Active promethazine (PHENERGAN) 25 mg tablet Take 25 [facility] (23279) mg by mouth three times daily. 0 Active Comment: Take 25 mg by mouth three ti mes daily. Take 1 tablet by mouth every 8 hours as needed (for nausea). rOPINIRole rOPINIRole 1 mg tablet [facility] Provider [facility] (03107) Take 1 mg by mouth once Provider daily. 0 Active Comment: Take 1 mg by mouth once alicia y. Sertraline sertraline (ZOLOFT) 100 [facility] Provider [facility] (99144) mg tablet Take 100 mg by Provider mouth once daily. 0 Active Comment: Take 100 mg by mouth once da jeffy. Simvastatin simvastatin 40 mg tablet [facility] Provider [facility] Take 40 mg by mouth daily Provider (4 6307) at bedtime. 0 Active Comment: Take 40 mg by mouth daily at bedtime. valsartan valsartan (DIOVAN) 80 mg [facility] Provider [facility] (28724) tablet Take 80 mg by Provider mouth once daily. 0 Active Comment: Take 80 mg by mouth once scotty ly. Problems Active Problems Category Problem Name Status Date Location Unclassified Active 08-31-2018 - [facility] [place] (91341) Unclassified Unknown / UNK(Unknown) Active 07-19-2017 - [facility] (30742) Past or Other Problems Category Problem Name Status Date Location Nausea and vomiting Nausea with vomiting, Completed 02-17-2015 - [facility] (18897) Other disorders of Gastroparesis Completed 07-31-2017 - [facility] stomach and duodenum [facility] (65837) Other gastrointestinal Diarrhea Completed 05-27-2007 - [facility] disorders (78104) Other nervous system Other disorders of Completed 12-31-2017 - [facility] disorders nervous system [facility] (00 000) Tuberculosis Nodular tuberculosis Com[facility]-2007 [facility] (35657) Results Result Name Value Range Unit Interpretation Flag Date Location vi on 2020-07-28 Vit. D 25-Hydroxy 25.6 ng/mL Normal 07-28-2020 A [facility] ([place]) (99283) Comment: Result Comment: Interpretive Values Based on Total 25(OH)D: Severe Deficiency <20 ng/mL Mild to Moderate Deficiency 20-30 ng/mL Optimum Levels 30-100 ng/mL Toxicity Possible >100 ng/mL Performed By: #### TSH, CMP, LIPID, VIDH, A1C, GFR #### [address] [address] rfp on 2020-07-28 Albumin [Mass/Vol] 3.3 3.4-4.8 G/dL Low 07-28-2020 [facility] ([place]) (24508) Comment: Performed By: #### TSH, CMP, LIPID, VIDH, A1C, GFR #### [place] [address] [place] [address] Calcium [Mass/Vol] 8.9 8.4-10.2 mg/dL Normal 07-28-2020 [facility] ([place]) (0000 0) Comment: Performed By: #### TSH, CMP, LIPID, VIDH, A1C, GFR #### [address] [address] Chloride [Moles/Vol] 104 98-107 mmol/L Normal 0 [facility] ([place]) (0000 0) Comment: Performed By: #### TSH, CMP, LIPID, VIDH, A1C, GFR #### [address] [address] CO2 [Moles/Vol] 28 23-31 mmol/L Normal 07-28-2020 [facility]) (31379) Comment: Performed By: #### TSH, CMP, LIPID, VIDH, A1C, GFR #### [address] [address] Creatinine [Mass/Vol] 1.19 0.55-1.02 mg/dL High 07-28-20 20 [facility] ([place]) (0000 0) Comment: Performed By: #### TSH, CMP, LIPID, VIDH, A1C, GFR #### [address] [address] Electrolyte Balance 10.0 mEq/L Normal 07-28-2020 [facility]) (04171) Comment: Performed By: #### TSH, CMP, LIPID, VIDH, A1C, GFR #### [address] [address] Glucose [Mass/Vol] 241 80-115 mg/dL High 07-28-2020 [facility] ([place]) (23385) Comment: Performed By: #### TSH, CMP, LIPID, VIDH, A1C, GFR #### [address] [address] Phosphate [Mass/Vol] 3.3 2.3-4.1 mg/dL Normal 0 [facility] ([place]) (0000 0) Comment: Performed By: #### TSH, CMP, LIPID, VIDH, A1C, GFR #### [address] [address] Potassium [Moles/Vol] 4.1 3.5-5.1 mmol/L Normal 07-28-20 20 [facility]) (0000 0) Comment: Performed By: #### TSH, CMP, LIPID, VIDH, A1C, GFR #### [address] [address] Sodium [Moles/Vol] 142 136-145 mmol/L Normal 07-28-2020 [facility] ([place]) (0000 0) Comment: Performed By: #### TSH, CMP, LIPID, VIDH, A1C, GFR #### [facility] [address] [place] [address] Urea nitrogen [Mass/Vol] 14 7-18 mg/dL Normal 07-28 [facility]) (0000 0) Comment: Performed By: #### TSH, CMP, LIPID, VIDH, A1C, GFR #### [facility] [address] [place] [address] Urea nitrogen/Creatinine [Mass 12 7-27 ratio Normal 07-28-2020 [facility]] [facility]) (32596) Comment: Performed By: #### TSH, CMP, LIPID, VIDH, A1C, GFR #### [facility] [address] [place] [address] pth on 2020-07-28 PTH, Intact 154.4 18.5-88.0 pg/mL High 07-28-2020 [facility]) (47401) Comment: Performed By: #### TSH, CMP, LIPID, VIDH, A1C, GFR #### [facility] [address] [place] [address] ma mammogram screening bilateral w/ramo on 2020-07-28 MA MAMMOGRAM ORIGINAL Normal 07-28-2020 [facility] SCREENING FROM: [facility]) BILATERAL W/RAMO [facility] (64404) [address] [place], [place] [address] PROCEDURE FOR: CRYSTAL CRAMER [address] [place] [address] Home: PID#: [id number] Exam#: [id number] : 1955 Age: 64 TO: [place], [place] [address] Fax: NO FAX #[phone] BILATERAL DIGITAL SCREENING MAMMOGRAM 3D/2D WITH CAD WITH MEDIOLATERAL OBLIQUE CRANIOCAUDAL: 07/28/2020 Comparison is made to exams dated: 11/07/2016 mammogram and 11/29/2014 mammogram - [facility]. The tissue of both breasts is predominately fatty. Current study was also evaluated with a Computer Aided Detection (CAD) system. No significant masses, calci fications, or other findings are seen in either breast. There has been no significant interval change. IMPRESSION: NEGATIVE There is no mammographic yuliet dence of malignancy. A 1 year screening mammogram is recommended.(07/29/2021) MARGARET LEONG MD da/mile:07/29/2020 10:10:09 Toe Laster(s): MIO FLORES, RT(R) (M), [facility] letter sent: Normal BI-RADS 1&2 Mammogram BI-RADS: 1 Negative cbc on 2020-07-28 Erythrocyte distribution 14.9 11.5-14.5 % High 07-28 [facility] width (RBC) [Ratio] ([place]) (92773) Comment: Performed By: #### TSH, CMP, LIPID, VIDH, A1C, GFR #### [address] [address] Hematocrit (Bld) [Volume 39.2 37.0-47.0 % Normal 07-28 [facility] fraction] ([place]) (0000 0) Comment: Performed By: #### TSH, CMP, LIPID, VIDH, A1C, GFR #### [address] [address] Hemoglobin (Bld) 12.8 12.0-16.0 G/dL Normal 07-28-2020 [facility] [Mass/Vol] [facility] ([place]) (56376) Comment: Performed By: #### TSH, CMP, LIPID, VIDH, A1C, GFR #### [address] [address] MCH (RBC) [Entitic mass] 28.2 27.0-31.2 pg Normal 07-28 [facility] ([place]) (0000 0) Comment: Performed By: #### TSH, CMP, LIPID, VIDH, A1C, GFR #### [address] [address] MCHC (RBC) [Mass/Vol] 32.7 33.0-37.0 G/dL Low 07-28-20 20 [facility] ([place]) (0000 0) Comment: Performed By: #### TSH, CMP, LIPID, VIDH, A1C, GFR #### [address] [address] MCV (RBC) [Entitic vol] 86.1 80.0-94.0 fL Normal 2019 [facility] ([place]) (0000 0) Comment: Performed By: #### TSH, CMP, LIPID, VIDH, A1C, GFR #### [address] [address] Platelet mean volume 9.2 7.4-10.4 fL Normal 0 [facility] (Bld) [Entitic vol] ([place]) (83279) Comment: Performed By: #### TSH, CMP, LIPID, VIDH, A1C, GFR #### [address] [address] Platelets (Bld) [#/Vol] 281 130-400 10 3/mcL Normal 2019 [facility] ([place]) (38543) Comment: Performed By: #### TSH, CMP, LIPID, VIDH, A1C, GFR #### [address] [address] RBC (Bld) [#/Vol] 4.55 4.20-5.40 10 6/mcL Normal 07-28-2020 [facility] ([place]) (0000 0) Comment: Performed By: #### TSH, CMP, LIPID, VIDH, A1C, GFR #### [address] [address] WBC (Bld) [#/Vol] 11.70 4.60-10.80 10 3/mcL High 07-28-2020 [facility] ([place]) (0000 0) Comment: Performed By: #### TSH, CMP, LIPID, VIDH, A1C, GFR #### [address] [address] bmp on 2020-07-28 Calcium [Mass/Vol] 8.9 8.4-10.2 mg/dL Normal 07-28-2020 [facility] ([place]) (0000 0) Comment: Performed By: #### TSH, CMP, LIPID, VIDH, A1C, GFR #### [address] [address] Chloride [Moles/Vol] 104 98-107 mmol/L Normal 0 [facility] ([place]) (0000 0) Comment: Performed By: #### TSH, CMP, LIPID, VIDH, A1C, GFR #### [address] [address] CO2 [Moles/Vol] 27 23-31 mmol/L Normal 07-28-2020 [facility]) (21231) Comment: Performed By: #### TSH, CMP, LIPID, VIDH, A1C, GFR #### [address] [address] Creatinine [Mass/Vol] 1.15 0.55-1.02 mg/dL High 07-28-20 20 [facility] ([place]) (0000 0) Comment: Performed By: #### TSH, CMP, LIPID, VIDH, A1C, GFR #### [address] [address] Electrolyte Balance 11.0 mEq/L Normal 07-28-2020 [facility] ([place]) (64838) Comment: Performed By: #### TSH, CMP, LIPID, VIDH, A1C, GFR #### [address] [address] Glucose [Mass/Vol] 240 80-115 mg/dL High 07-28-2020 [facility] ([place]) (02623) Comment: Performed By: #### TSH, CMP, LIPID, VIDH, A1C, GFR #### [address] [address] Potassium [Moles/Vol] 4.0 3.5-5.1 mmol/L Normal 07-28-20 [facility] ([place]) (0000 0) Comment: Performed By: #### TSH, CMP, LIPID, VIDH, A1C, GFR #### [address] [address] Sodium [Moles/Vol] 142 136-145 mmol/L Normal 07-28-2020 [facility] ([place]) (0000 0) Comment: Performed By: #### TSH, CMP, LIPID, VIDH, A1C, GFR #### [facility] [address] [place] [address] Urea nitrogen [Mass/Vol] 13 7-18 mg/dL Normal 07-28 [facility] ([place]) (0000 0) Comment: Performed By: #### TSH, CMP, LIPID, VIDH, A1C, GFR #### [facility] [address] [place] [address] Urea nitrogen/Creatinine [Mass 11 7-27 ratio Normal 07-28-2020 [facility]] [facility] ([place]) (44204) Comment: Performed By: #### TSH, CMP, LIPID, VIDH, A1C, GFR #### [facility] [address] [place] [address] .neuabs on Neutrophils (Bld) 8.50 2.85-6.16 10 3/mcL High 07-28-2020 [facility] [#/Vol] [facility] ([place]) (42546) Comment: Performed By: #### TSH, CMP, LIPID, VIDH, A1C, GFR #### [facility] [address] [place] [address] .gfr on 2020-07-28 GFR 57 ml/min/1.73sqm Normal 07-19 [facility] ([place]) (0000 0) Comment: Result Comment: GFR Population mean for Afri can Uruguayan, Non- Americans Ages 20-29 = 116 mL/min/1.73 [...] TSH, CMP, LIPID, VIDH, A1C, GFR #### [address] [address] GFR Non- 47 ml/min/1.73sqm Normal 07-28-2020 [facility] ([place]) (39834) Comment: Result Comment: GFR Population mean for Afri can [place], Non- Americans Ages 20-29 = 116 mL/min/1.73 [...] TSH, CMP, LIPID, VIDH, A1C, GFR #### [address] [address] GFR Non- 46 ml/min/1.73sqm Normal 07-28-2020 [facility] ([place]) (55900) Comment: Result Comment: GFR Population mean for Afri can [place]ruguayan, Non- Americans Ages 20-29 = 116 mL/min/1.73 [...] TSH, CMP, LIPID, VIDH, A1C, GFR #### [address] [address] GFR 55 ml/min/1.73sqm Normal 07-19 0-2019 [facility] ([place]) (0000 0) Comment: Result Comment: GFR Population mean for Afri can [place]ayan, Non- Americans Ages 20-29 = 116 mL/min/1.73 [...] TSH, CMP, LIPID, VIDH, A1C, GFR #### [address] [address] .auto diff on 07-28 Ammonia (P) [Mass/Vol] 0.70 0.15-1.00 10 3/mcL Normal 020 [facility] ([place]) (41010) Comment: Performed By: #### TSH, CMP, LIPID, VIDH, A1C, GFR #### [address] [address] Basophils (Bld) 0.10 0.00-0.19 10 3/mcL Normal 07-28-2020 [facility] [#/Vol] [facility] ([place]) (59083) Comment: Performed By: #### TSH, CMP, LIPID, VIDH, A1C, GFR #### [address] [address] Basophils/100 WBC (Bld) 0.6 0.0-2.5 % Normal 2019 [facility] ([place]) (0000 0) Comment: Performed By: #### TSH, CMP, LIPID, VIDH, A1C, GFR #### [address] [address] Eosinophils (Bld) 0.40 0.00-0.40 10 3/mcL Normal 07-28-2020 [facility] [#/Vol] [facility] ([place]) (42917) Comment: Performed By: #### TSH, CMP, LIPID, VIDH, A1C, GFR #### [address] [address] Eosinophils/100 WBC (Bld) 3.5 0.0-7.0 % Normal 07-19 [facility] ([place]) (0000 0) Comment: Performed By: #### TSH, CMP, LIPID, VIDH, A1C, GFR #### [address] [address] Lymphocytes (Bld) 2.00 0.77-3.85 10 3/mcL Normal 07-28-2020 [facility] [#/Vol] [facility] ([place]) (31084) Comment: Performed By: #### TSH, CMP, LIPID, VIDH, A1C, GFR #### [address] [address] Lymphocytes/100 WBC (Bld) 17.1 10.0-50.0 % Normal 07-19 [facility] ([place]) (31764) Comment: Performed By: #### TSH, CMP, LIPID, VIDH, A1C, GFR #### [address] [address] Monocytes/100 WBC (Bld) 6.0 1.7-13.0 % Normal 2019 [facility] ([place]) (0000 0) Comment: Performed By: #### TSH, CMP, LIPID, VIDH, A1C, GFR #### [address] [address] Neutrophils/100 WBC (Bld) 72.8 37.0-80.0 % Normal 07-19 [facility] ([place]) (56895) Comment: Performed By: #### TSH, CMP, LIPID, VIDH, A1C, GFR #### [address] [address] xr chest 2 views on 2020-07-06 XR CHEST 2 VIEWS ORIGINAL Normal 07-06-2020 [facility] XR CHEST 2 VIEWS, 07/05/2020 4:07 PM [facility] ([place]) ([id number]) INDICATION: SOB COMPARISON: May 2019 FINDINGS: The [...] Albumin [Mass/Vol] 3.3 3.4-4.8 G/dL Low 05-19-2020 [facility] ([place]) (00480) Comment: Performed By: #### TSH, CMP, LIPID, VIDH, A1C, GFR #### [address] [address] Albumin/Globulin [Mass ratio] 0.8 1.1-2.5 ratio Low 05-19-2020 [facility] ([place]) (34375) Comment: Performed By: #### TSH, CMP, LIPID, VIDH, A1C, GFR #### [address] [address] ALP [Catalytic activity/Vol] 194 40-135 U/L High 1 [facility] ([place]) (0000 0) Comment: Performed By: #### TSH, CMP, LIPID, VIDH, A1C, GFR #### [address] [address] ALT [Catalytic activity/Vol] 27 14-59 U/L Normal 1 [facility] ([place]) (0000 0) Comment: Performed By: #### TSH, CMP, LIPID, VIDH, A1C, GFR #### [address] [address] AST [Catalytic activity/Vol] 18 10-40 U/L Normal 1 [facility] ([place]) (0000 0) Comment: Performed By: #### TSH, CMP, LIPID, VIDH, A1C, GFR #### [address] [address] Bili Total 0.7 0.2-1.0 mg/dL Normal 05-19-2020 [facility] ([place]) (23312) Comment: Result Comment: Use of this assay is not recommended for patients undergoing treatment with eltrombopag d ue to the potential for falsely elevated results. Performed By: #### TSH, CMP, LIPID, VIDH, A1C, GFR #### [address] [address] Calcium [Mass/Vol] 9.5 8.4-10.2 mg/dL Normal 05-19-2020 [facility] ([place]) (0000 0) Comment: Performed By: #### TSH, CMP, LIPID, VIDH, A1C, GFR #### [address] [address] Chloride [Moles/Vol] 99 98-107 mmol/L Normal 0 [facility] ([place]) (0000 0) Comment: Performed By: #### TSH, CMP, LIPID, VIDH, A1C, GFR #### [address] [address] CO2 [Moles/Vol] 27 23-31 mmol/L Normal 05-19-2020 [facility]) (87539) Comment: Performed By: #### TSH, CMP, LIPID, VIDH, A1C, GFR #### [address] [address] Creatinine [Mass/Vol] 1.21 0.55-1.02 mg/dL High 05-19-20 20 [facility] ([place]) (0000 0) Comment: Performed By: #### TSH, CMP, LIPID, VIDH, A1C, GFR #### [address] [address] Electrolyte Balance 9.0 mEq/L Normal 05-19-2020 [facility] ([place]) (68307) Comment: Performed By: #### TSH, CMP, LIPID, VIDH, A1C, GFR #### [address] [address] Globulin (S) [Mass/Vol] 3.9 G/dL Normal 2019 [facility] ([place]) (02111) Comment: Performed By: #### TSH, CMP, LIPID, VIDH, A1C, GFR #### [address] [address] Glucose [Mass/Vol] 311 80-115 mg/dL High 05-19-2020 [facility] ([place]) (92988) Comment: Performed By: #### TSH, CMP, LIPID, VIDH, A1C, GFR #### [address] [address] Potassium [Moles/Vol] 4.8 3.5-5.1 mmol/L Normal 05-19-20 [facility] ([place]) (0000 0) Comment: Performed By: #### TSH, CMP, LIPID, VIDH, A1C, GFR #### [address] [address] Protein [Mass/Vol] 7.2 6.4-8.2 G/dL Normal 05-19-2020 [facility] ([place]) (11401) Comment: Performed By: #### TSH, CMP, LIPID, VIDH, A1C, GFR #### [address] [address] Sodium [Moles/Vol] 135 136-145 mmol/L Low 05-19-2020 [facility] ([place]) (16972) Comment: Performed By: #### TSH, CMP, LIPID, VIDH, A1C, GFR #### [address] [address] Urea nitrogen [Mass/Vol] 18 7-18 mg/dL Normal 05-19 [facility] ([place]) (0000 0) Comment: Performed By: #### TSH, CMP, LIPID, VIDH, A1C, GFR #### [address] [address] Urea nitrogen/Creatinine [Mass 15 7-27 ratio Normal 05-19-2020 [facility]] [facility] ([place]) (86242) Comment: Performed By: #### TSH, CMP, LIPID, VIDH, A1C, GFR #### [address] [address] a1c on 2020-05-19 HbA1c (Bld) [Mass fraction] 9.2 4.3-6.4 % High [facility] ([place]) (0000 0) Comment: Performed By: #### TSH, CMP, LIPID, VIDH, A1C, GFR #### [address] [address] .gfr on 2020-05-19 GFR 54 ml/min/1.73sqm Normal [facility] ([place]) (0000 0) Comment: Result Comment: GFR Population mean for Afri can [place]ruguayan, Non- Americans Ages 20-29 = 116 mL/min/1.73 [...] TSH, CMP, LIPID, VIDH, A1C, GFR #### [address] [address] GFR Non- 45 ml/min/1.73sqm Normal 05-19-2020 [facility] ([place]) (18243) Comment: Result Comment: GFR Population mean for Afri can [place]ruguayan, Non- Americans Ages 20-29 = 116 mL/min/1.73 [...] TSH, CMP, LIPID, VIDH, A1C, GFR #### [address] [address] bmp on 2020-03-21 Calcium [Mass/Vol] 9.6 8.4-10.2 mg/dL Normal 03-21-2020 [facility] ([place]) (0000 0) Comment: Performed By: #### TSH, CMP, LIPID, VIDH, A1C, GFR #### [address] [address] Chloride [Moles/Vol] 96 98-107 mmol/L Low 0 [facility] ([place]) (14737) Comment: Performed By: #### TSH, CMP, LIPID, VIDH, A1C, GFR #### [address] [address] CO2 [Moles/Vol] 27 23-31 mmol/L Normal 03-21-2020 [facility] ([place]) (32435) Comment: Performed By: #### TSH, CMP, LIPID, VIDH, A1C, GFR #### [address] [address] Creatinine [Mass/Vol] 1.42 0.55-1.02 mg/dL High 03-21-20 20 [facility] ([place]) (0000 0) Comment: Performed By: #### TSH, CMP, LIPID, VIDH, A1C, GFR #### [address] [address] Electrolyte Balance 11.0 mEq/L Normal 03-21-2020 [facility] ([place]) (85521) Comment: Performed By: #### TSH, CMP, LIPID, VIDH, A1C, GFR #### [address] [address] Glucose [Mass/Vol] 397 80-115 mg/dL High 03-21-2020 [facility] ([place]) (54001) Comment: Performed By: #### TSH, CMP, LIPID, VIDH, A1C, GFR #### [address] [address] Potassium [Moles/Vol] 4.8 3.5-5.1 mmol/L Normal 03-21-20 20 [facility] ([place]) (0000 0) Comment: Performed By: #### TSH, CMP, LIPID, VIDH, A1C, GFR #### [place] [address] [place] [id number] Sodium [Moles/Vol] 134 136-145 mmol/L Low 03-21-2020 [facility] ([place]) ([id number]) Comment: Performed By: #### TSH, CMP, LIPID, VIDH, A1C, GFR #### [address] [address] Urea nitrogen [Mass/Vol] 18 7-18 mg/dL Normal 03-21 [facility] ([place]) (0000 0) Comment: Performed By: #### TSH, CMP, LIPID, VIDH, A1C, GFR #### [address] [address] Urea nitrogen/Creatinine [Mass 13 7-27 ratio Normal 03-21-2020 [facility]] [facility] ([place]) ([id number]) Comment: Performed By: #### TSH, CMP, LIPID, VIDH, A1C, GFR #### [address] [address] .gfr on 2020-03-21 GFR 45 ml/min/1.73sqm Normal -0 [facility] ([place]) (0000 0) Comment: Result Comment: GFR Population mean for Afri can [place], Non- Americans Ages 20-29 = 116 mL/min/1.73 [...] TSH, CMP, LIPID, VIDH, A1C, GFR #### [address] [address] GFR Non- 37 ml/min/1.73sqm Normal 03-21-2020 [facility] ([place]) ([id number]) Comment: Result Comment: GFR Population mean for Afri can [place], Non- Americans Ages 20-29 = 116 mL/min/1.73 [...] TSH, CMP, LIPID, VIDH, A1C, GFR #### [place] [address] nm bone imaging whole body on 2020-03-01 NM BONE IMAGING ORIGINAL Normal 03-01-2020 [facility] WHOLE BODY EXAM: NM BONE IMAGING WHOLE BODY 02/29/2020 1:37 PM [facility] ([place]) ([id number]) HISTORY: LEFT posterior late ral ribs/chest wall [...] resident's findings and interpretation. Interpreted By: Leah ,Cornish DO Preliminary Report By: Belkis Henriquez DO Electronically Signed By: Tyrese Lynn DO Dictated Date: 02/29/2020 1:55:08 PM Prelim Date: 02/29/2020 2:00:50 PM Sign Date: 03/01/2020 1:36:16 PM Ordering Provider:You lund on 2020-02-26 CUR . Normal 02-26-2020 [facility] MICRO - Microbiology [facility] ([place]) ([id number]) PROCEDURE: Urine Culture [*1] SOURCE: Urine, Clean Catch BODY SITE: COLLECTED DATE/TIME: 02/24/2020 22:39 EDT RECEIVED DATE/TIME: 02/25/2020 15:49 EDT START DATE/TIME: 02/25/2020 15:49 EDT FREE TEXT SOURCE: FINAL REPORTS Final Report [] Verified Date/Time/Personnel: 02/26/2020 14:46 EDT 10,000 - 50,000 cfu/ml Multiple bacterial morphotypes present. Probable Contamination. Suggest recollection if clinically indicated. Performing Locations *1: This test was performed at: [address], [address]- , [place] Comment: Performed By: #### TSH, CMP, LIPID, VIDH, A1C, GFR #### [address] [address] ua on 2020-02-25 Color (U) Yellow Normal 02-25-2020 [facility] ([place]) ([id number]) Comment: Performed By: #### TSH, CMP, LIPID, VIDH, A1C, GFR #### [address] [address] Glucose (U) [Mass/Vol] 500 Negative mg/dL Abnormal 020 [facility] ([place]) ([id number]) Comment: Performed By: #### TSH, CMP, LIPID, VIDH, A1C, GFR #### [address] [address] Ketones Ql (U) Negative Negative Normal 02-25-2020 [facility] ([place]) ([id number]) Comment: Performed By: #### TSH, CMP, LIPID, VIDH, A1C, GFR #### [address] [address] UA Appear Clear Clear Normal 02-25-2020 [facility] ([place]) ([id number]) Comment: Performed By: #### TSH, CMP, LIPID, VIDH, A1C, GFR #### [address] [address] UA Blood Trace Negative Abnormal 02-25-2020 [facility] ([place]) ([id number]) Comment: Performed By: #### TSH, CMP, LIPID, VIDH, A1C, GFR #### [address] [address] UA Leuk Est Negative Negative Normal 02-25-2020 [facility] ([place]) ([id number]) Comment: Performed By: #### TSH, CMP, LIPID, VIDH, A1C, GFR #### [address] [address] UA Nitrite Negative Negative Normal 02-25-2020 [facility] ([place]) ([id number]) Comment: Performed By: #### TSH, CMP, LIPID, VIDH, A1C, GFR #### [address] [address] UA pH 7.0 5.0 - 8.0 Normal 02-25-2020 [facility] ([place]) ([id number]) Comment: Performed By: #### TSH, CMP, LIPID, VIDH, A1C, GFR #### [address] [address] UA Protein Trace Negative Normal 02-25-2020 [facility] ([place]) ([id number]) Comment: Performed By: #### TSH, CMP, LIPID, VIDH, A1C, GFR #### [address] [address] UA Spec Grav 1.020 1.015-1.025 Normal 02-25-2020 [facility] ([place]) ([id number]) Comment: Performed By: #### TSH, CMP, LIPID, VIDH, A1C, GFR #### [address] [address] UA Specimen Type Clean Catch Normal 02-25-2020 [facility] ([place]) ([id number]) Comment: Performed By: #### TSH, CMP, LIPID, VIDH, A1C, GFR #### [address] [address] UA Urobilinogen 0.2 0.2-1.0 E.U./dL Normal 02-25-2020 [facility] ([place]) ([id number]) Comment: Performed By: #### TSH, CMP, LIPID, VIDH, A1C, GFR #### [address] [address] Urobilinogen Qn (U) Negative Negative Normal 02-25-2020 [facility] ([place]) (0000 0) Comment: Performed By: #### TSH, CMP, LIPID, VIDH, A1C, GFR #### [address] [address] trop on 2020-02-25 Troponin I.cardiac <0.020 0.000-0.040 ng/mL Normal 0 [facility] [Mass/Vol] [facility] [place] ([id number]) Comment: Result Comment: Troponin I r eference range: 0.00-0.040 ng/mL Negative an d non-diagnostic. >0.040 ng/mL Consistent with cardiac damage, increased clinical risk and possibility of myocardial in farction. Serial measurements, a rise & fall in test results, clinical histo ry, appropriate symptoms and/or ECG changes may help assess possibility of IA. *Other non-acute coronary sy ndrome conditions such as CHF, myoc arditis, pulmonary emboli, sepsis and cardiac surgery could result in myoc ardial damage and increased troponi n levels. Performed By: #### TSH, CMP, LIPID, VIDH, A1C, GFR #### [address] [address] phv on 2020-02-25 pH Venous 7.39 7.31-7.41 Normal 02-25-2020 [facility] ([place]) ([id number]) Comment: Performed By: #### CBC, ANEU , GFR, CMP, PHV, ISIS, LIP, ADIFF #### [address] [address] lip on 2020-02-25 Lipase Level 76 73-393 U/L Normal 02-25-2020 [facility] ([place]) ([id number]) Comment: Performed By: #### TSH, CMP, LIPID, VIDH, A1C, GFR #### [address] [address] cmp on 2020-02-25 Albumin [Mass/Vol] 3.6 3.4-4.8 G/dL Normal 02-25-2020 [facility] ([place]) ([id number]) Comment: Performed By: #### TSH, CMP, LIPID, VIDH, A1C, GFR #### [address] [address] Albumin/Globulin [Mass ratio] 1.0 1.1-2.5 ratio Low 02-25-2020 [facility] ([place]) ([id number]) Comment: Performed By: #### TSH, CMP, LIPID, VIDH, A1C, GFR #### [place] [id number] ALP [Catalytic activity/Vol] 192 40-135 U/L High 0 02-25-2020 [facility] ([place]) (0000 0) Comment: Performed By: #### TSH, CMP, LIPID, VIDH, A1C, GFR #### [address] [address] ALT [Catalytic activity/Vol] 21 10-35 U/L Normal 0 02-25-2020 [facility] ([place]) (0000 0) Comment: Performed By: #### TSH, CMP, LIPID, VIDH, A1C, GFR #### [address] [address] AST [Catalytic activity/Vol] 14 10-40 U/L Normal 0 02-25-2020 [facility] ([place]) (0000 0) Comment: Performed By: #### TSH, CMP, LIPID, VIDH, A1C, GFR #### [address] [address] Bili Total 1.0 0.2-1.0 mg/dL Normal 02-25-2020 [facility] ([place]) ([id number]) Comment: Result Comment: Use of this assay is not recommended for patients undergoing treatment with eltrombopag d ue to the potential for falsely elevated results. Performed By: #### TSH, CMP, LIPID, VIDH, A1C, GFR #### [address] [address] Calcium [Mass/Vol] 9.6 8.4-10.2 mg/dL Normal 02-25-2020 [facility] ([place]) (0000 0) Comment: Performed By: #### TSH, CMP, LIPID, VIDH, A1C, GFR #### [address] [address] Chloride [Moles/Vol] 97 98-107 mmol/L Low 0 [facility] ([place]) ([id number]) Comment: Performed By: #### TSH, CMP, LIPID, VIDH, A1C, GFR #### [address] [address] CO2 [Moles/Vol] 34 23-31 mmol/L High 02-25-2020 [facility] ([place]) ([id number]) Comment: Performed By: #### TSH, CMP, LIPID, VIDH, A1C, GFR #### [address] [address] Creatinine [Mass/Vol] 1.31 0.55-1.02 mg/dL High 02-25-20 20 [facility] ([place]) (0000 0) Comment: Performed By: #### TSH, CMP, LIPID, VIDH, A1C, GFR #### [address] [address] Electrolyte Balance 4.0 mEq/L Normal 02-25-2020 [facility] ([place]) ([id number]) Comment: Performed By: #### TSH, CMP, LIPID, VIDH, A1C, GFR #### [address] [address] Globulin (S) [Mass/Vol] 3.6 G/dL Normal 2019 [facility] ([place]) ([id number]) Comment: Performed By: #### TSH, CMP, LIPID, VIDH, A1C, GFR #### [address] [address] Glucose [Mass/Vol] 428 80-115 mg/dL Critically abnormal 0 02-25-2020 [facility] ([place]) ([id number]) Comment: Performed By: #### TSH, CMP, LIPID, VIDH, A1C, GFR #### [address] [address] Potassium [Moles/Vol] 4.8 3.5-5.1 mmol/L Normal 02-25-20 [facility] ([place]) (0000 0) Comment: Performed By: #### TSH, CMP, LIPID, VIDH, A1C, GFR #### [address] [address] Protein [Mass/Vol] 7.2 6.4-8.2 G/dL Normal 02-25-2020 [facility] ([place]) ([id number]) Comment: Performed By: #### TSH, CMP, LIPID, VIDH, A1C, GFR #### [address] [address] Sodium [Moles/Vol] 135 136-145 mmol/L Low 02-25-2020 [facility] ([place]) ([id number]) Comment: Performed By: #### TSH, CMP, LIPID, VIDH, A1C, GFR #### [address] [address] Urea nitrogen [Mass/Vol] 17 7-18 mg/dL Normal 02-24 [facility] ([place]) (0000 0) Comment: Performed By: #### TSH, CMP, LIPID, VIDH, A1C, GFR #### [address] [address] Urea nitrogen/Creatinine [Mass 13 7-27 ratio Normal 02-25-2020 [facility]] [facility] ([place]) ([id number]) Comment: Performed By: #### TSH, CMP, LIPID, VIDH, A1C, GFR #### [address] [address] cbc on 2020-02-25 Erythrocyte distribution 14.8 11.5-14.5 % High 02-24 [facility] width (RBC) [Ratio] ([place]) (21708) Comment: Performed By: #### CBC, ANEU , GFR, CMP, PHV, ISIS, LIP, ADIFF #### [address] [address] Hematocrit (Bld) [Volume 40.2 37.0-47.0 % Normal 02-24 [facility] fraction] ([place]) (0000 0) Comment: Performed By: #### CBC, ANEU , GFR, CMP, PHV, ISIS, LIP, ADIFF #### [address] [address] Hemoglobin (Bld) 13.2 12.0-16.0 G/dL Normal 02-25-2020 [facility] [Mass/Vol] [facility] ([place]) ([id number]) Comment: Performed By: #### CBC, ANEU , GFR, CMP, PHV, ISIS, LIP, ADIFF #### [address] [address] MCH (RBC) [Entitic mass] 27.7 27.0-31.2 pg Normal 02-24 [facility] ([place]) (0000 0) Comment: Performed By: #### CBC, ANEU , GFR, CMP, PHV, ISIS, LIP, ADIFF #### [address] [address] MCHC (RBC) [Mass/Vol] 32.8 33.0-37.0 G/dL Low 02-25-20 20 [facility] ([place]) (0000 0) Comment: Performed By: #### CBC, ANEU , GFR, CMP, PHV, ISIS, LIP, ADIFF #### [address] [address] MCV (RBC) [Entitic vol] 84.5 80.0-94.0 fL Normal 2019 [facility] ([place]) (0000 0) Comment: Performed By: #### CBC, ANEU , GFR, CMP, PHV, ISIS, LIP, ADIFF #### [address] [address] Platelet mean volume 8.1 7.4-10.4 fL Normal 0 [facility] (Bld) [Entitic vol] ([place]) ([id number]) Comment: Performed By: #### CBC, ANEU , GFR, CMP, PHV, ISIS, LIP, ADIFF #### [address] [address] Platelets (Bld) [#/Vol] 265 130-400 10 3/mcL Normal 2019 [facility] ([place]) ([id number]) Comment: Performed By: #### CBC, ANEU , GFR, CMP, PHV, ISIS, LIP, ADIFF #### [address] [address] RBC (Bld) [#/Vol] 4.76 4.20-5.40 10 6/mcL Normal 02-25-2020 [facility] ([place]) (0000 0) Comment: Performed By: #### CBC, ANEU , GFR, CMP, PHV, ISIS, LIP, ADIFF #### [address] [address] WBC (Bld) [#/Vol] 11.20 4.60-10.80 10 3/[facility] High 02-25-2020 [facility] ([place]) (0000 0) Comment: Performed By: #### CBC, ANEU , GFR, CMP, PHV, ISIS, LIP, ADIFF #### [address] [address] isis on 2020-02-25 Acetone (s) Negative Negative Normal 02-25-2020 [facility] ([place]) ([id number]) Comment: Performed By: #### TSH, CMP, LIPID, VIDH, A1C, GFR #### [address] [address] .neuabs on Neutrophils (Bld) 8.50 2.85-6.16 10 3/mcL High 02-25-2020 [facility] [#/Vol] [facility] ([place]) ([id number]) Comment: Performed By: #### CBC, ANEU , GFR, CMP, PHV, ISIS, LIP, ADIFF #### [address] [address] .gfr on 2020-02-25 GFR 49 ml/min/1.73sqm Normal 07-0 [facility] ([place]) (0000 0) Comment: Result Comment: GFR Population mean for Afri can [place], Non- Americans Ages 20-29 = 116 mL/min/1.73 [...] TSH, CMP, LIPID, VIDH, A1C, GFR #### [address] [address] GFR Non- 41 ml/min/1.73sqm Normal 02-25-2020 [facility] ([place]) ([id number]) Comment: Result Comment: GFR Population mean for Afri can [place], Non- Americans Ages 20-29 = 116 mL/min/1.73 [...] TSH, CMP, LIPID, VIDH, A1C, GFR #### [address] [address] .auto diff on 02-24 Ammonia (P) [Mass/Vol] 0.80 0.15-1.00 10 3/mcL Normal 020 [facility] ([place]) ([id number]) Comment: Performed By: #### CBC, ANEU , GFR, CMP, PHV, ISIS, LIP, ADIFF #### [address] [address] Basophils (Bld) 0.10 0.00-0.19 10 3/mcL Normal 02-25-2020 [facility] [#/Vol] [facility] ([place]) ([id number]) Comment: Performed By: #### CBC, ANEU , GFR, CMP, PHV, ISIS, LIP, ADIFF #### [address] [address] Basophils/100 WBC (Bld) 0.6 0.0-2.5 % Normal 2019 [facility] ([place]) (0000 0) Comment: Performed By: #### CBC, ANEU , GFR, CMP, PHV, ISIS, LIP, ADIFF #### [address] [address] Eosinophils (Bld) 0.30 0.00-0.40 10 3/mcL Normal 02-25-2020 [facility] [#/Vol] [facility] ([place]) ([id number]) Comment: Performed By: #### CBC, ANEU , GFR, CMP, PHV, ISIS, LIP, ADIFF #### [address] [address] Eosinophils/100 WBC (Bld) 2.4 0.0-7.0 % Normal [facility] ([place]) (0000 0) Comment: Performed By: #### CBC, ANEU , GFR, CMP, PHV, ISIS, LIP, ADIFF #### [address] [address] Lymphocytes (Bld) 1.60 0.77-3.85 10 3/mcL Normal 02-25-2020 [facility] [#/Vol] [facility] ([place]) ([id number]) Comment: Performed By: #### CBC, ANEU , GFR, CMP, PHV, ISIS, LIP, ADIFF #### [address] [address] Lymphocytes/100 WBC (Bld) 14.6 10.0-50.0 % Normal [facility] ([place]) (10797) Comment: Performed By: #### CBC, ANEU , GFR, CMP, PHV, ISIS, LIP, ADIFF #### [address] [address] Monocytes/100 WBC (Bld) 6.8 1.7-13.0 % Normal 2019 [facility] ([place]) (0000 0) Comment: Performed By: #### CBC, ANEU , GFR, CMP, PHV, ISIS, LIP, ADIFF #### [address] [address] Neutrophils/100 WBC (Bld) 75.6 37.0-80.0 % Normal [facility] ([place]) ([id number]) Comment: Performed By: #### CBC, ANEU , GFR, CMP, PHV, ISIS, LIP, ADIFF #### [address] [address] vidh on 2020-02-24 Vit. D 25-Hydroxy 24 ng/mL Normal 02-24-2020 [facility] ([place]) ([id number]) Comment: Result Comment: Interpretive Values Based on Total 25(OH)D: Severe Deficiency <20 ng/mL Mild to Moderate Deficiency 20-30 ng/mL Optimum Levels 30-100 ng/mL Toxicity Possible >100 ng/mL Performed By: #### TSH, CMP, LIPID, VIDH, A1C, GFR #### [address] [address] uric on 2020-02-24 Uric Acid Lvl 4.7 2.6-6.2 mg/dL Normal 02-24-2020 [facility] ([place]) (45027) Comment: Performed By: #### TSH, CMP, LIPID, VIDH, A1C, GFR #### [address] [address] tsh on 2020-02-24 TSH Qn 2.13 0.36-3.74 mcIU/mL Normal 02-24-2020 [facility] ([place]) ([id number]) Comment: Performed By: #### TSH, CMP, LIPID, VIDH, A1C, GFR #### [address] [address] lipid on 2020-02-24 Cholesterol [Mass/Vol] 134 0-200 mg/dL Normal 02-23- 020 [facility] ([place]) (0000 0) Comment: Result Comment: Cholesterol Reference Interval: Less than 200 Desirable 200-239 Borderline high risk 240 and above High risk Performed By: #### TSH, CMP, LIPID, VIDH, A1C, GFR #### [address] [address] Cholesterol in HDL 45 40-60 mg/dL Normal 02-24-2020 [facility] [Mass/Vol] ([place]) (000 00) Comment: Performed By: #### TSH, CMP, LIPID, VIDH, A1C, GFR #### [address] [address] Cholesterol in LDL 55 0-130 mg/dL Normal 02-24-2020 [facility] [Mass/Vol] ([place]) (000 00) Comment: Performed By: #### TSH, CMP, LIPID, VIDH, A1C, GFR #### [address] [address] Triglyceride [Mass/Vol] 171 0-150 mg/dL High 2019 [facility] ([place]) (0000 0) Comment: Result Comment: Triglyceride Reference Interval: Less than 150 Normal 150-199 Borderline high risk 200-499 High risk 500 or higher Very high risk Performed By: #### TSH, CMP, LIPID, VIDH, A1C, GFR #### [address] [address] ft4 on 2020-02-24 Free T4 [Mass/Vol] 1.37 0.76-1.46 ng/dL Normal 02-24-2020 [facility] ([place]) (0000 0) Comment: Performed By: #### TSH, CMP, LIPID, VIDH, A1C, GFR #### [address] [address] cmp on 2020-02-24 Albumin [Mass/Vol] 3.5 3.4-4.8 G/dL Normal 02-24-2020 [facility] ([place]) ([id number]) Comment: Performed By: #### TSH, CMP, LIPID, VIDH, A1C, GFR #### [address] [address] Albumin/Globulin [Mass ratio] 1.0 1.1-2.5 ratio Low 02-24-2020 [facility] ([place]) ([id number]) Comment: Performed By: #### TSH, CMP, LIPID, VIDH, A1C, GFR #### [address] [address] ALP [Catalytic activity/Vol] 193 40-135 U/L High 0 02-24-2020 [facility] ([place]) (0000 0) Comment: Performed By: #### TSH, CMP, LIPID, VIDH, A1C, GFR #### [address] [address] ALT [Catalytic activity/Vol] 22 10-35 U/L Normal 0 02-24-2020 [facility] ([place]) (0000 0) Comment: Performed By: #### TSH, CMP, LIPID, VIDH, A1C, GFR #### [address] [address] AST [Catalytic activity/Vol] 16 10-40 U/L Normal 0 02-24-2020 [facility] ([place]) (0000 0) Comment: Performed By: #### TSH, CMP, LIPID, VIDH, A1C, GFR #### [address] [address] Bili Total 0.7 0.2-1.0 mg/dL Normal 02-24-2020 [facility] ([place]) ([id number]) Comment: Result Comment: Use of this assay is not recommended for patients undergoing treatment with eltrombopag d ue to the potential for falsely elevated results. Performed By: #### TSH, CMP, LIPID, VIDH, A1C, GFR #### [address] [address] Calcium [Mass/Vol] 9.3 8.4-10.2 mg/dL Normal 02-24-2020 [facility] ([place]) (0000 0) Comment: Performed By: #### TSH, CMP, LIPID, VIDH, A1C, GFR #### [address] [address] Chloride [Moles/Vol] 95 98-107 mmol/L Low 0 [facility]) ([id number]) Comment: Performed By: #### TSH, CMP, LIPID, VIDH, A1C, GFR #### [address] [address] CO2 [Moles/Vol] 30 23-31 mmol/L Normal 02-24-2020 [facility]) (80599) Comment: Performed By: #### TSH, CMP, LIPID, VIDH, A1C, GFR #### [address] [address] Creatinine [Mass/Vol] 1.28 0.55-1.02 mg/dL High 02-24-20 20 [facility]) (0000 0) Comment: Performed By: #### TSH, CMP, LIPID, VIDH, A1C, GFR #### [address] [address] Electrolyte Balance 8.0 mEq/L Normal 02-24-2020 [facility]) (05546) Comment: Performed By: #### TSH, CMP, LIPID, VIDH, A1C, GFR #### [address] [address] Globulin (S) [Mass/Vol] 3.4 G/dL Normal 2019 [facility]) (60362) Comment: Performed By: #### TSH, CMP, LIPID, VIDH, A1C, GFR #### [address] [address] Glucose [Mass/Vol] 458 80-115 mg/dL Critically abnormal 0 02-24-2020 [facility] ([place]) (96043) Comment: Performed By: #### TSH, CMP, LIPID, VIDH, A1C, GFR #### [address] [address] Potassium [Moles/Vol] 4.6 3.5-5.1 mmol/L Normal 02-24-20 20 [facility] ([place]) (0000 0) Comment: Performed By: #### TSH, CMP, LIPID, VIDH, A1C, GFR #### [address] [address] Protein [Mass/Vol] 6.9 6.4-8.2 G/dL Normal 02-24-2020 [facility] ([place]) ([id number]) Comment: Performed By: #### TSH, CMP, LIPID, VIDH, A1C, GFR #### [address] [address] Sodium [Moles/Vol] 133 136-145 mmol/L Low 02-24-2020 [facility] ([place]) (52472) Comment: Performed By: #### TSH, CMP, LIPID, VIDH, A1C, GFR #### [address] [address] Urea nitrogen [Mass/Vol] 17 7-18 mg/dL Normal 02-23 [facility] ([place]) (0000 0) Comment: Performed By: #### TSH, CMP, LIPID, VIDH, A1C, GFR #### [address] [address] Urea nitrogen/Creatinine [Mass 13 7-27 ratio Normal 02-24-2020 [facility]] [facility] ([place]) ([id number]) Comment: Performed By: #### TSH, CMP, LIPID, VIDH, A1C, GFR #### [address] [address] a1c on 2020-02-24 HbA1c (Bld) [Mass fraction] 9.2 4.3-6.4 % High [facility] ([place]) (0000 0) Comment: Performed By: #### TSH, CMP, LIPID, VIDH, A1C, GFR #### [address] [address] .gfr on 2020-02-24 GFR Non- 42 ml/min/1.73sqm Normal 02-24-2020 [facility] ([place]) ([id number]) Comment: Result Comment: GFR Population mean for Afri can [place], Non- Americans Ages 20-29 = 116 mL/min/1.73 [...] TSH, CMP, LIPID, VIDH, A1C, GFR #### [address] [address] GFR 51 ml/min/1.73sqm Normal - [facility] ([place]) (0000 0) Comment: Result Comment: GFR Population mean for Afri can [place], Non- Americans Ages 20-29 = 116 mL/min/1.73 [...] TSH, CMP, LIPID, VIDH, A1C, GFR #### [address] [address] vidh on 2019-11-16 Vit. D 25-Hydroxy 21 ng/mL Normal 11-16-2019 A [facility] ([place]) ([id number]) Comment: Result Comment: Interpretive Values Based on Total 25(OH)D: Severe Deficiency <20 ng/mL Mild to Moderate Deficiency 20-30 ng/mL Optimum Levels 30-100 ng/mL Toxicity Possible >100 ng/mL Performed By: #### TSH, CMP, LIPID, VIDH, A1C, GFR #### [address] [address] tsh on 2019-11-16 TSH Qn 2.00 0.36-3.74 mcIU/mL Normal 11-16-2019 [facility] ([place]) ([id number]) Comment: Performed By: #### TSH, CMP, LIPID, VIDH, A1C, GFR #### [address] [address] lipid on 2019-11-16 Cholesterol [Mass/Vol] 157 0-200 mg/dL Normal 020 [facility] ([place]) (0000 0) Comment: Result Comment: Cholesterol Reference Interval: Less than 200 Desirable 200-239 Borderline high risk 240 and above High risk Performed By: #### TSH, CMP, LIPID, VIDH, A1C, GFR #### [address] [address] Cholesterol in HDL 70 40-60 mg/dL High 11-16-2019 [facility] [Mass/Vol] ([place]) (000 00) Comment: Performed By: #### TSH, CMP, LIPID, VIDH, A1C, GFR #### [address] [address] Cholesterol in LDL 67 0-130 mg/dL Normal 11-16-2019 [facility] [Mass/Vol] ([place]) (000 00) Comment: Performed By: #### TSH, CMP, LIPID, VIDH, A1C, GFR #### [address] [address] Triglyceride [Mass/Vol] 100 0-150 mg/dL Normal 2019 [facility] ([place]) (0000 0) Comment: Result Comment: Triglyceride Reference Interval: Less than 150 Normal 150-199 Borderline high risk 200-499 High risk 500 or higher Very high risk Performed By: #### TSH, CMP, LIPID, VIDH, A1C, GFR #### [address] [address] cmp on 2019-11-16 Albumin [Mass/Vol] 3.4 3.4-4.8 G/dL Normal 11-16-2019 [facility] ([place]) ([id number]) Comment: Performed By: #### TSH, CMP, LIPID, VIDH, A1C, GFR #### [address] [address] Albumin/Globulin [Mass ratio] 1.0 1.1-2.5 ratio Low 11-16-2019 [facility] ([place]) ([id number]) Comment: Performed By: #### TSH, CMP, LIPID, VIDH, A1C, GFR #### [address] [address] ALP [Catalytic activity/Vol] 197 40-135 U/L High 0 11-16-2019 [facility] ([place]) (0000 0) Comment: Performed By: #### TSH, CMP, LIPID, VIDH, A1C, GFR #### [address] [address] ALT [Catalytic activity/Vol] 39 10-35 U/L High 0 11-16-2019 [facility] ([place]) (0000 0) Comment: Performed By: #### TSH, CMP, LIPID, VIDH, A1C, GFR #### [address] [address] AST [Catalytic activity/Vol] 21 10-40 U/L Normal 0 11-16-2019 [facility] ([place]) (0000 0) Comment: Performed By: #### TSH, CMP, LIPID, VIDH, A1C, GFR #### [address] [address] Bili Total 0.9 0.2-1.0 mg/dL Normal 11-16-2019 [facility] ([place]) ([id number]) Comment: Result Comment: Use of this assay is not recommended for patients undergoing treatment with eltrombopag d ue to the potential for falsely elevated results. Performed By: #### TSH, CMP, LIPID, VIDH, A1C, GFR #### [address] [address] Calcium [Mass/Vol] 9.1 8.4-10.2 mg/dL Normal 11-16-2019 [facility] ([place]) (0000 0) Comment: Performed By: #### TSH, CMP, LIPID, VIDH, A1C, GFR #### [address] [address] Chloride [Moles/Vol] 99 98-107 mmol/L Normal 0 [facility] ([place]) (0000 0) Comment: Performed By: #### TSH, CMP, LIPID, VIDH, A1C, GFR #### [address] [address] CO2 [Moles/Vol] 30 23-31 mmol/L Normal 11-16-2019 [facility] ([place]) ([id number]) Comment: Performed By: #### TSH, CMP, LIPID, VIDH, A1C, GFR #### [address] [address] Creatinine [Mass/Vol] 1.22 0.55-1.02 mg/dL High 11-16-19 [facility] ([place]) (0000 0) Comment: Performed By: #### TSH, CMP, LIPID, VIDH, A1C, GFR #### [address] [address] Electrolyte Balance 7.0 mEq/L Normal 11-16-2019 [facility] ([place]) (18290) Comment: Performed By: #### TSH, CMP, LIPID, VIDH, A1C, GFR #### [address] [address] Globulin (S) [Mass/Vol] 3.3 G/dL Normal 2019 [facility] ([place]) (43003) Comment: Performed By: #### TSH, CMP, LIPID, VIDH, A1C, GFR #### [address] [address] Glucose [Mass/Vol] 329 80-115 mg/dL High 11-16-2019 [facility] ([place]) (90897) Comment: Performed By: #### TSH, CMP, LIPID, VIDH, A1C, GFR #### [address] [address] Potassium [Moles/Vol] 4.8 3.5-5.1 mmol/L Normal 11-16-19 20 [facility] ([place]) (0000 0) Comment: Performed By: #### TSH, CMP, LIPID, VIDH, A1C, GFR #### [address] [address] Protein [Mass/Vol] 6.7 6.4-8.2 G/dL Normal 11-16-2019 [facility] ([place]) (54403) Comment: Performed By: #### TSH, CMP, LIPID, VIDH, A1C, GFR #### [address] [address] Sodium [Moles/Vol] 136 136-145 mmol/L Normal 11-16-2019 [facility] ([place]) (0000 0) Comment: Performed By: #### TSH, CMP, LIPID, VIDH, A1C, GFR #### [address] [address] Urea nitrogen [Mass/Vol] 14 7-18 mg/dL Normal 11-15 [facility] ([place]) (0000 0) Comment: Performed By: #### TSH, CMP, LIPID, VIDH, A1C, GFR #### [address] [address] Urea nitrogen/Creatinine [Mass 11 7-27 ratio Normal 11-16-2019 [facility]] [facility] ([place]) (35934) Comment: Performed By: #### TSH, CMP, LIPID, VIDH, A1C, GFR #### [address] [address] a1c on 2019-11-16 HbA1c (Bld) [Mass fraction] 8.5 4.3-6.4 % High [facility] ([place]) (0000 0) Comment: Performed By: #### TSH, CMP, LIPID, VIDH, A1C, GFR #### [address] [address] .gfr on 2019-11-16 GFR Non- 44 ml/min/1.73sqm Normal 11-16-2019 [facility] ([place]) (09433) Comment: Result Comment: GFR Population mean for Afri can [place], Non- Americans Ages 20-29 = 116 mL/min/1.73 [...] TSH, CMP, LIPID, VIDH, A1C, GFR #### [address] [address] GFR 54 ml/min/1.73sqm Normal 10-19 [facility] ([place]) (0000 0) Comment: Result Comment: GFR Population mean for Afri can [place], Non- Americans Ages 20-29 = 116 mL/min/1.73 [...] TSH, CMP, LIPID, VIDH, A1C, GFR #### [address] [address] mri spine lumbar w/o contrast on 2019-08-18 MRI SPINE LUMBAR ORIGINAL Normal 08-18-2019 [facility] W/O CONTRAST MRI SPINE LUMBAR W/O CONTRAST [facility] ([place]) (87921) ORDERING PROVIDER: JENNY VIDES CLINICAL STATEMENT: lumbosacral root disease. TECHNIQUE: Sagittal T2, T1 and STIR; axial T1 and T2 weighte d images. COMPARISON: None. Vertebral Nomenclature: For purposes of this dictation, it is assumed that there are 5 sez-snq-kbxhxtt, lumbar-type vertebrae, and the most caudal fully [...] Erythrocyte distribution 14.6 11.5-14.5 % High 08-17 [facility] width (RBC) [Ratio] ([place]) (61559) Comment: Performed By: #### TSH, CMP, LIPID, VIDH, A1C, GFR #### [address] [address] Hematocrit (Bld) [Volume 37.4 37.0-47.0 % Normal 08-17 [facility] fraction] ([place]) (0000 0) Comment: Performed By: #### TSH, CMP, LIPID, VIDH, A1C, GFR #### [address] [address] Hemoglobin (Bld) 12.4 12.0-16.0 G/dL Normal 08-17-2019 [facility] [Mass/Vol] [facility] ([place] (84191) Comment: Performed By: #### TSH, CMP, LIPID, VIDH, A1C, GFR #### [address] [address] MCH (RBC) [Entitic mass] 27.8 27.0-31.2 pg Normal 08-17 [facility] ([place]) (0000 0) Comment: Performed By: #### TSH, CMP, LIPID, VIDH, A1C, GFR #### [address] [address] MCHC (RBC) [Mass/Vol] 33.1 33.0-37.0 G/dL Normal 08-17-20 19 [facility] ([place]) (0000 0) Comment: Performed By: #### TSH, CMP, LIPID, VIDH, A1C, GFR #### [address] [address] MCV (RBC) [Entitic vol] 83.8 80.0-94.0 fL Normal 2018 [facility] ([place]) (0000 0) Comment: Performed By: #### TSH, CMP, LIPID, VIDH, A1C, GFR #### [address] [address] Platelet mean volume 7.7 7.4-10.4 fL Normal 9 [facility] (d) [Entitic vol] ([place]) (38901) Comment: Performed By: #### TSH, CMP, LIPID, VIDH, A1C, GFR #### [address] [address] Platelets (Bld) [#/Vol] 277 130-400 10 3/mcL Normal 2018 [facility] ([place]) (57062) Comment: Performed By: #### TSH, CMP, LIPID, VIDH, A1C, GFR #### [address] [address] RBC (Bld) [#/Vol] 4.47 4.20-5.40 10 6/mcL Normal 08-17-2019 A [facility] ([place]) (0000 0) Comment: Performed By: #### TSH, CMP, LIPID, VIDH, A1C, GFR #### [address] [address] WBC (Bld) [#/Vol] 10.70 4.60-10.80 10 3/mcL Normal 08-17-2019 [facility] ([place]) (82081) Comment: Performed By: #### TSH, CMP, LIPID, VIDH, A1C, GFR #### [address] [address] bmp on 2019-08-17 Calcium [Mass/Vol] 9.1 8.4-10.2 mg/dL Normal 08-17-2019 [facility] ([place]) (0000 0) Comment: Performed By: #### TSH, CMP, LIPID, VIDH, A1C, GFR #### [address] [address] Chloride [Moles/Vol] 100 98-107 mmol/L Normal 9 [facility] ([place]) (0000 0) Comment: Performed By: #### TSH, CMP, LIPID, VIDH, A1C, GFR #### [address] [address] CO2 [Moles/Vol] 29 23-31 mmol/L Normal 08-17-2019 [facility]) (71993) Comment: Performed By: #### TSH, CMP, LIPID, VIDH, A1C, GFR #### [address] [address] Creatinine [Mass/Vol] 0.99 0.55-1.02 mg/dL Normal 08-17-20 19 [facility] ([place]) (13339) Comment: Performed By: #### TSH, CMP, LIPID, VIDH, A1C, GFR #### [place] [id number] Electrolyte Balance 7.0 mEq/L Normal 08-17-2019 [facility] ([place]) (90431) Comment: Performed By: #### TSH, CMP, LIPID, VIDH, A1C, GFR #### [address] [address] Glucose [Mass/Vol] 319 80-115 mg/dL High 08-17-2019 [facility] ([place]) (64110) Comment: Performed By: #### TSH, CMP, LIPID, VIDH, A1C, GFR #### [address] [address] Potassium [Moles/Vol] 4.1 3.5-5.1 mmol/L Normal 08-17-20 19 [facility] ([place]) (0000 0) Comment: Performed By: #### TSH, CMP, LIPID, VIDH, A1C, GFR #### [address] [address] Sodium [Moles/Vol] 136 136-145 mmol/L Normal 08-17-2019 [facility] ([place]) (0000 0) Comment: Performed By: #### TSH, CMP, LIPID, VIDH, A1C, GFR #### [address] [address] Urea nitrogen [Mass/Vol] 12 7-18 mg/dL Normal 08-17 [facility] ([place]) (0000 0) Comment: Performed By: #### TSH, CMP, LIPID, VIDH, A1C, GFR #### [address] [address] Urea nitrogen/Creatinine [Mass 12 7-27 ratio Normal 08-17-2019 [facility]] [facility] ([place]) (71960) Comment: Performed By: #### TSH, CMP, LIPID, VIDH, A1C, GFR #### [address] [address] .neuabs on Neutrophils (Bld) 7.60 2.85-6.16 10 3/mcL High 08-17-2019 [facility] [#/Vol] [facility] ([place]) (33605) Comment: Performed By: #### TSH, CMP, LIPID, VIDH, A1C, GFR #### [address] [address] .gfr on 2019-08-17 GFR 68 ml/min/1.73sqm Normal 12- [facility] ([place]) (0000 0) Comment: Result Comment: GFR Population mean for Afri can [place], Non- Americans Ages 20-29 = 116 mL/min/1.73 [...] TSH, CMP, LIPID, VIDH, A1C, GFR #### [address] [address] GFR Non- 56 ml/min/1.73sqm Normal 08-17-2019 [facility] ([place]) (65102) Comment: Result Comment: GFR Population mean for Afri can [place], Non- Americans Ages 20-29 = 116 mL/min/1.73 [...] TSH, CMP, LIPID, VIDH, A1C, GFR #### [address] [address] .auto diff on 08-17 Ammonia (P) [Mass/Vol] 0.70 0.15-1.00 10 3/mcL Normal 08-17- 019 [facility] ([place]) (80551) Comment: Performed By: #### TSH, CMP, LIPID, VIDH, A1C, GFR #### [address] [address] Basophils (Bld) 0.10 0.00-0.19 10 3/mcL Normal 08-17-2019 [facility] [#/Vol] [facility] ([place]) (11441) Comment: Performed By: #### TSH, CMP, LIPID, VIDH, A1C, GFR #### [address] [address] Basophils/100 WBC (Bld) 0.6 0.0-2.5 % Normal 2018 [facility] ([place]) (0000 0) Comment: Performed By: #### TSH, CMP, LIPID, VIDH, A1C, GFR #### [address] [address] Eosinophils (Bld) 0.30 0.00-0.40 10 3/mcL Normal 08-17-2019 [facility] [#/Vol] [facility] ([place]) (93278) Comment: Performed By: #### TSH, CMP, LIPID, VIDH, A1C, GFR #### [address] [address] Eosinophils/100 WBC (Bld) 2.6 0.0-7.0 % Normal 07-21 [facility] ([place]) (0000 0) Comment: Performed By: #### TSH, CMP, LIPID, VIDH, A1C, GFR #### [address] [address] Lymphocytes (Bld) 2.10 0.77-3.85 10 3/[facility] Normal 08-17-2019 [facility] [#/Vol] [facility] ([place]) (87907) Comment: Performed By: #### TSH, CMP, LIPID, VIDH, A1C, GFR #### [address] [address] Lymphocytes/100 WBC (Bld) 19.5 10.0-50.0 % Normal 07-21 [facility] ([place]) (29028) Comment: Performed By: #### TSH, CMP, LIPID, VIDH, A1C, GFR #### [address] [address] Monocytes/100 WBC (Bld) 6.5 1.7-13.0 % Normal 2018 [facility] ([place]) (0000 0) Comment: Performed By: #### TSH, CMP, LIPID, VIDH, A1C, GFR #### [address] [address] Neutrophils/100 WBC (Bld) 70.8 37.0-80.0 % Normal 07-21 [facility] ([place]) (97045) Comment: Performed By: #### TSH, CMP, LIPID, VIDH, A1C, GFR #### [address] [address] urine w microsc on 2018-08-31 Appearance Nom (U) Cloudy CLEAR Normal 08-31-2018 [facility] (58277) Comment: Performed By: #### L600.0000 3 ####[facility] IAFRWRTUFV2734 [place], [place] [address]Aw# Color Nom (U) Yellow Normal 08-31-2018 [facility] (64306) Comment: Performed By: #### L600.0000 3 ####[facility] BLWSNAFUCM6411 [place], [place] [address]Gy# [phone] Glucose mass conc (U) NEG mg/dL Normal 08-31-19 [facility] (25010) Comment: Performed By: #### L600.0000 3 ####[facility] [id number] [place], [place] [address]Rx# HYALINE CAST 86 0-1 /LPF High 08-31-2018 [facility] (15011) Comment: Performed By: #### L600.0000 3 ####[facility] OJIGTIWCMX1447 [place], [place] [address]Su# Mucus Ql (Urine sed) TRACE Normal [facility] (47153) Comment: Performed By: #### L600.0000 3 ####[facility] MAXAJMXHVL6301 [place], [place] [address]Di# Protein mass conc (U) NEGATIVE NEGATIVE mg/dL Normal 08-31-19 [facility] (00 000) Comment: Performed By: #### L600.0000 3 ####[facility] VGFTEVZCNE4108 [place], [place] [address]Ie# SQUAMOUS EPIS 1 0-5 EPI/HPF Normal 08-31-2018 [facility] (07500) Comment: Performed By: #### L600.0000 3 ####[facility] LBHKHYUDGN2193 [place], [place] [address]Xe# [phone] UA BACTERIA 4+ NONE /HPF Normal 08-31-2018 [facility] (45020) Comment: Performed By: #### L600.0000 3 ####[facility] DJTCYFMHAR6308 [place], [place] [address]Bn# [phone] UA BILIRUBIN NEGATIVE Normal 08-31-2018 [facility] (18917) Comment: Performed By: #### L600.0000 3 ####[facility] DKDVHMOYNC3615 [place], [place] [address]Bw# UA BLOOD NEGATIVE NEGATIVE Normal 08-31-2018 [facility] (48041) Comment: Performed By: #### L600.0000 3 ####[facility] SYTUWZBWUC0333 [place], [place] [address]El# UA KETONE NEGATIVE Normal 08-31-2018 [facility] (81157) Comment: Performed By: #### L600.0000 3 ####[facility] LSHROFWZXM7615 [place], [place] [address]Br# [phone] UA LK ESTERASE 500 NEGATIVE Normal 08-31-2018 [facility] (90829) Comment: Performed By: #### L600.0000 3 ####[facility] KHENKABBLM7842 [place], [place] [address]Ib# UA NITRITE NEGATIVE NEGATIVE Normal 08-31-2018 [facility] (25041) Comment: Performed By: #### L600.0000 3 ####[facility] DWRFNZPLZH9949 [place], [place] [address]Td# [phone] UA PH 5.0 Normal 08-31-2018 [facility] (91637) Comment: Performed By: #### L600.0000 3 ####[facility] ZNTDMEZGCI2004 [place], [place] [address]Oy# [phone] UA RBC 1 0-3 RBC/HPF Normal 08-31-2018 [facility] (33553) Comment: Performed By: #### L600.0000 3 ####[facility] XDOMESUTHC3255 [place], [place] [address]Qt# [phone] UA SPEC GRAV 1.013 1.005-1.030 Normal 08-31-2018 [facility] (46648) Comment: Performed By: #### L600.0000 3 ####[facility] SWXQOWAQMR2876 [place], [place] [address]Xl# [phone] UA UROBILINOGEN NEG Normal 08-31-2018 [facility] (97722) Comment: Performed By: #### L600.0000 3 ####[facility] MSTYFWXXAR0974 [place], [place] [address]An# UA WBC 293 0-5 WBC/HPF High 08-31-2018 [facility] (19914) Comment: Performed By: #### L600.0000 3 ####[facility] MBYKVAPXPU1933 [place], [place] [address]Pz# UA YEAST MANY NONE Normal 08-31-2018 [facility] (62814) Comment: Performed By: #### L600.0000 3 ####[facility] CLGVZWZLZE1185 [place], [place] [address]Yw# WBC CLUMPS FEW Normal 08-31-2018 [facility] (77238) Comment: Performed By: #### L600.0000 3 ####[facility] OYQSQVZPNH9145 [place], [place] [address]Mf# [phone] gfr est on IF AMER 14 ML/MIN Normal 08-31-2018 [facility] (40126) Comment: Performed By: #### L500.0140 0, L500.74248, L550.29215 ####[facility] VXSFQYBZBQ3225 [place], [place] [address]Fp# [phone] IF non-AFR AMER 12 ML/MIN Normal 08-31-2018 [facility] (72358) Comment: Performed By: #### L500.0140 0, L500.21422, L550.94272 ####[facility] KBNIWOFRKV2895 [place], [place] [address]Za# [phone] crp on 2018-08-31 CRP mass conc 4.13 0.00-0.32 MG/DL High 08-31-2018 [facility] (84265) Comment: Performed By: #### L500.0140 0, L500.90263, L550.69481 ####[facility] CKTJLAZYPF7223 [place], [place] [address]Nn# [phone] cmp on 2018-08-31 Albumin mass conc 2.9 3.2-5.0 GM/DL Low 08-31-2018 [facility] (99310) Comment: Performed By: #### L500.0140 0, L500.81981, L550.35893 ####[facility] RTZYQSVCEU9142 [place], [place] [address]Wg# [phone] Albumin/Globulin mass ratio 0.9 0.8-2.0 {ratio} Normal [facility] [place] (22024) Comment: Performed By: #### L500.0140 0, L500.92357, L550.60486 ####[facility] FRZHAADATX5299 [place], [place] [address]Hr# [phone] ALK PHOS 179 45-117 U/L High 08-31-2018 [facility] (95008) Comment: Performed By: #### L500.0140 0, L500.71452, L550.50579 ####[facility] WVNTYCRPQG6207 [place], [place] [address]Cd# [phone] ALT enzyme act/vol 78 13-61 IU/L High 08-31-2018 [facility] (97691) Comment: Result Comment: RESULTS MAY BE FALSELY DEPRESSED AFTER THE ADMINISTRATION OFSULFASALAZINE AND/OR SULFA PYRIDINE. Performed By: #### L500.0140 0, L500.48814, L550.42277 ####[facility] UMQBKMKVJG4667 [place], [place] [address]Nm# [phone] Anion gap molar conc 8 5-16 MMOL/L Normal 9 [facility] (82886) Comment: Performed By: #### L500.0140 0, L500.25902, L550.12896 ####[facility] RCJCGJPMPY7355 [place], [place] [address]Ds# [phone] BILI TOTAL 1.0 0.2-1.0 MG/DL Normal 08-31-2018 [facility] (47016) Comment: Performed By: #### L500.0140 0, L500.48646, L550.37649 ####[facility] QBJZFVEIBX8187 [place], [place] [address]Db# [phone] Calcium mass conc 8.5 8.5-10.1 MG/DL Normal 08-31-2018 [facility] (41839) Comment: Performed By: #### L500.0140 0, L500.44674, L550.05453 ####[facility] AOZWZBXEEX7586 [place], [place] [address]Iv# [phone] Chloride molar conc 94 98-107 MMOL/L Low 08-31-2018 [facility] (10312) Comment: Performed By: #### L500.0140 0, L500.33948, L550.51323 ####[facility] FQXUKRUOBE4943 [place], [place] [address]Ai# [phone] CO2 molar conc 28 21-32 MMOL/L Normal 08-31-2018 [facility] (36287) Comment: Performed By: #### L500.0140 0, L500.08864, L550.51400 ####[facility] VUDDNEFDYT7405 [place], [place] [address]Cg# [phone] Creatinine mass conc 3.850 0.510-0.950 MG/DL High [address] [place] [address] (00 000) Comment: Result Comment: Patients rec eiving either N-Acetylcysteine (NAC) orMetamizole prior to venipu ncture, may have falsely depressedresults. Performed By: #### L500.0140 0, L500.18617, L550.69005 ####[facility] VKGYRWZHRC3311 [place], [place] [address]Rw# [phone] Globulin mass conc (S) 3.3 2.2-4.2 GM/DL Normal [address] [place] [address] (00 000) Comment: Performed By: #### L500.0140 0, L500.60060, L550.81453 ####[facility] IABRJFEMZU7809 [place], [place] [address]Jp# [phone] Glucose mass conc 133 70-100 MG/DL High 08-31-2018 [facility] (83088) Comment: Result Comment: 70-100- Norm al Fasting; 100-125 Impaired Fasting; greaterthan 126 on more than one result- Diabetes. ADA guidelines.Results may be falsely elevated afte r the administration ofSulfapyridine.Results may be falsely depressed after t he administration ofSulfasalazine. Performed By: #### L500.0140 0, L500.25094, L550.21480 ####[facility] AMABBBIJHZ0003 [place], [place] [address]Qa# [phone] Potassium molar conc 7.0 3.5-5.1 MMOL/L Critically high [facility] [place] (43333) Comment: Result Comment: Slight Hemol ysis, Result may be falsely increased. CriticalResult(s) Called at: 18:00:05 on 08/31/2018 by: milady hinson and read back by: TAE Roger Performed By: #### L500.0140 0, L500.04873, L550.05494 ####[facility] ELFOBTEPEB8792 [place], [place] [address]Fc# [phone] Protein mass conc 6.2 6.0-8.5 GM/DL Normal 08-31-2018 [facility] (28245) Comment: Performed By: #### L500.0140 0, L500.28894, L550.72165 ####[facility] EDQVUUKMKA9307 [place], [place] [address]Mc# [phone] SGOT (AST) 102 8-34 U/L High 08-31-2018 [facility] (02015) Comment: Result Comment: Slight Hemol ysis, Result may be falsely increased.RESULTS MAY BE FALSELY DEPRESSED AFT ER THE ADMINISTRATION OFSULFASALAZINE AND/OR SULFAPYRIDINE. Performed By: #### L500.0140 0, L500.01932, L550.93391 ####[facility] YFLCESUXOB2578 [place], [place] [address]Hf# [phone] Sodium molar conc 129 136-145 MMOL/L Low 08-31-2018 [facility] (03111) Comment: Performed By: #### L500.0140 0, L500.72682, L550.23818 ####[facility] CGZFFSSHEL9940 [place], [place] [address]Dq# [phone] Urea nitrogen mass conc 62 7-26 MG/DL High 2018 [facility] (12052) Comment: Performed By: #### L500.0140 0, L500.51368, L550.96401 ####[facility] CVRBBSJGBJ3524 [place], [place] [address]Hx# [phone] Urea nitrogen/Creatinine mass 16 15-24 mg/mg Normal 08-31-2018 [facility] ratio [place] (00 000) Comment: Performed By: #### L500.0140 0, L500.42972, L550.28289 ####[facility] UHLDEXTGSU9519 [place], [place] [address]Po# [phone] cbc w/diff on 08-31 BASO ABS 0.10 0-0.2 K/CU MM Normal 08-31-2018 [facility] (53418) Comment: Performed By: #### L200.0005 0 ####[address] [address]Tb# Basophils/100 WBC (Bld) 0.3 0-2 % Normal 2018 [facility] (88220) Comment: Performed By: #### L200.0005 0 ####[address] [address]Lc# EOS ABS 0.30 0-0.5 K/CU MM Normal 08-31-2018 [facility] [place] (83730) Comment: Performed By: #### L200.0005 0 ####[facility] GWRMCATBJH[address] [place] [address]Rv# Eosinophils/100 WBC (Bld) 1.4 0-5 % Normal 08-19 [facility] [place] (59126) Comment: Performed By: #### L200.0005 0 ####[address] [address]Su# [phone] Erythrocyte distribution width 16.5 11-14.5 % High 08-31-2018 [facility] Ratio (RBC) [place] ( [address]) Comment: Performed By: #### L200.0005 0 ####[address] [address]Mr# [phone] Hematocrit Volume Fraction 35.7 35.0-47.0 % Normal [facility] (d) [place] (00 000) Comment: Performed By: #### L200.0005 0 ####[address] [address]Kr# Hemoglobin mass conc (Bld) 11.1 11.5-15.5 G/DL Low [facility] (00 000) Comment: Performed By: #### L200.0005 0 ####[facility] DTQRZDBQEM5596 [place], [place] [address]Nv# IMMATR GRAN ABS 0.10 Less than 2 K/CU MM Normal 08-31-2018 [facility] (00 000) Comment: Performed By: #### L200.0005 0 ####[facility] VKNWWZOUYW[address] [place] [address]Ks# IMMATURE GRAN % 0.6 Less than 2 % Normal 08-31-2018 [facility] (29549) Comment: Performed By: #### L200.0005 0 ####[address] [address]Gw# Lymphocytes #/vol (Bld) 4.10 0.9-4.4 K/CU MM Normal 2018 [facility] (00 000) Comment: Performed By: #### L200.0005 0 ####[facility] [id number] [place] [address] [id number]# [phone] Lymphocytes/100 WBC (Bld) 18.5 20-40 % Low 08-19 [facility] ([id number]) Comment: Performed By: #### L200.0005 0 ####[facility] [id number] [place] [address] 90332Qi# MCHC mass conc (RBC) 31.1 32.0-36.0 GM/DL Low 9 [facility] (40222) Comment: Performed By: #### L200.0005 0 ####[address] [address]Ro# MCV Entitic volume (RBC) 83.6 80.0-99.0 fl Normal 08-31 [facility] (00 000) Comment: Performed By: #### L200.0005 0 ####[address] [id number] [place], [place] [address]Pl# MONO ABS 2.20 0.1-1.1 K/CU MM High 08-31-2018 [facility] [place] ([id number]) Comment: Performed By: #### L200.0005 0 ####[facility] [id number] [place], [place] [address]Xy# [phone] Monocytes/100 WBC (Bld) 9.8 2-10 % Normal 2018 [facility] (02687[facility] Comment: Performed By: #### L200.0005 0 ####[facility] [id number] [place] [address] 58[address]Kr# NEUTROPHIL ABS 15.50 2.0-8.3 K/CU MM High 08-31-2018 [facility] (61373) Comment: Performed By: #### L200.0005 0 ####[facility] [id number] [place] [address] 110[address]Iu# [phone] Neutrophils/100 WBC (Bld) 69.4 45-75 % Normal 08-19 [facility] ([id number]) Comment: Performed By: #### L200.0005 0 ####[facility] [id number] [place], [place] [address]Zv# [phone] Nucleated RBC/100 WBC 0.0 Less than 1 % Normal 2018 [facility] Ratio (Bld) [place] ( [address]) Comment: Performed By: #### L200.0005 0 ####[facility] [id number] [place] [address] 24497Xt# [phone] Platelet mean volume 11.0 9.4-12.[address] [facility] Entitic volume (Bld) [place] (01768) Comment: Performed By: #### L200.0005 0 ####[facility] [id number] [place] [address] 03777Da# [phone] Platelets #/vol (Bld) 401 150-450 K/CU MM Normal 08-31-19 19 [facility] (00 000) Comment: Performed By: #### L200.0005 0 ####[facility] [id number] [place], [place] [address]Qa# RBC #/vol (Bld) 4.27 3.90-5.30 M/CU MM Normal 08-31-2018 [facility] ([id number]) Comment: Performed By: #### L200.0005 0 ####[facility] EOJSONV[address] [place], [place] [address]Xv# [phone] WBC #/vol (Bld) 22.3 4.5-11.0 K/CUMM High 08-31-2018 [facility] (01283) Comment: Performed By: #### L200.0005 0 ####[facility] GUHNDAIMPC[address] [place], [place] [address]Ou# [phone] progress on 2018-07 Protein HNO ID: [id number]: Ayana ([facility]) ShannonService: Normal 07-23-2018 [facility] (none)Author Type: Nurse PractitionerType: Progress Clinic conc NotesFiled: 07/23/2018 1:20 PMNote Text:Crystal [facility] is a 62 year old female. Patient presents ([id number]) with:New PatientPMH: DM, Fibromyalgia, HTN, HyperlipidemiaRejay jay [...] FIRST FOR MY DOCUMENTATION TO PROVIDE CARE, HELPIPX AND COLLEAGUES TO HAVE NEUROLOGICAL CONTEXT OF [...] BPMetformin Other: See Comments Not Specified Side Effect/Ryxfrmujzsc64/10/2017 Past Updates...MigrainesPAST MEDICAL HISTORY:ACTIVE PROBLEM LISTTuberculosis of Lung, Nodular, Confirmation UnspecifiedDiarrheaNausea AND VomitingPAST SURGICAL HISTORYProcedure Laterality Date- APPENDECTOMY 1973- COLONOSCOP W/ OR W/O [facility] SPEC 06/19/2013 Colonoscopy- COLONOSCOPY [...] motor and sensory exam is symmetricEqual v1,V2, G0Qncaaq is in midline. No tongue fasciculation.Palate is upgoing bilaterallySCM and trapezius are full.Shoulder shrug intact?Motor Exam:?Upper extremity motor exam is 5/5 in deltoid, 5/5 triceps 5/5biceps, 5/5wrist extension, and 5/5 hand generator mechanic. Finger extensor 5/5. Finger flexor5/5. Pronation and [...] Babinski). No clonus of ankles.?Coordination:Finger-to- nose-finger and ihef-yt-vqzc intact bilaterally. No ataxia ofarms. No limb [...] visit, with more than 50% of the gxrhmzauu-lr-jrcq time of the visit in counseling / coordination of care.ACTIVE PROBLEM LISTTuberculosis of Lung, Nodular, Confirmation UnspecifiedDiarrheaNausea AND VomitingNo orders found for this visit on 07/23/18.Ayana Jamison MSN, PIG MACHINE OPERATOR, SALES SUPPORT REPRESENTATIVE-C1. This office note has been dictated and [...] Normal 07-23-2018 Shauna and (NEADMN) --------CRYSTAL CRAMER ([id number]) 1955 [facility] Time Provider Pequelgdpg05/5/18 12:45 PM AYANA JAMISON (JOSEP) ANGELINA Fiore During your visit today, we recorded the following information about you: Pulse Respiration Blood (81304) pressure Weight 69/minute 18 /minute 104/46 129.3 [...] Date- APPENDECTOMY 1974- COLONOSCOP W/ OR W/O [facility] SPEC 06/19/2013 Colonoscopy- COLONOSCOPY [...] motor and sensory exam is symmetricEqual v1,V2, V5Htfkbv is in midline. No tongue fascic ulation.Palate is upgoing bilaterallySCM and trapezius are full.Shoulder shrug intact?Motor Exam:?Upp er extremity motor exam is 5/5 in deltoid, 5/5 triceps 5/5biceps, 5/5 wristextension, and 5/5 hand generator mechanic. Finger extensor 5/5. Finger flexor 5/5.Pronation and [...] Babinski). No clonus of ankles.?Coordination:Finger-to- nose-finger and paap-ny-yryf intact bilatera lly. No ataxia of arms.No [...] of d iabetes. In review of her R6Subthus, she has been diabetic for some time [...] m ore than 50% of the total rore-ym-ejkameec of the visit in counseling / coordination of care.ACTIVE PROBLEM LISTTuberculosis of Lung, Nodular, Confirmation UnspecifiedDiarrheaNausea AN D VomitingNo orders found for this visit on 07/23/18.Ayana Jamison MSN, PIG MACHINE OPERATOR, SALES SUPPORT REPRESENTATIVE-C1. This office no te has been dictated [...] Comments Comments: MigrainesDate Reviewed: 12/2017Reviewed by: Ayana ([facility]) Shaheen - Fully AssessedReason for Visit: New [...] MONTELUKAST 10 MG TABLET >> Ayana Jamison APRN.TYPO MACHINE OPERATOR 07/23/2018 12:17 PM >> AYANA JAMISON SatJul [...] 05/23/2018 Disc: Discontinued by PatientEncounter Number: [id number] Status:Closed by AYANA JAMISON on 07/23/18 progress on 2018-05 Protein mass HNO ID: [id number]: Carlyn arriola 05-23-2018 [facility] conc (Showroom Manager) FulkService: (none)Author [place] Type: Nurse PractitionerType: ([id number]) Progress NotesFiled: 05/23/2018 12:48 PMNote Text:HPI Crystal [...] [facility] recommend patient be seen at nearest ED,refused Squad friend present will transport, report called to Nino CHOE.JOSEP Schwartz on 2018-05-23 CNOV Office Visit Normal 05-23-2018 [place] and (WSTR) --------CRYSTAL CRAMER ([id number]) 1955 FDat e Time Provider Kuaqnogozi96/5/18 12:15 PM [facility] During Clev eland your visit today, we [...] friendpresent will transport , report called to [place] ДМИТРИЙ.Carlyn Wu CNPReferring Provider: SELF [200]Allergies As of Date: 05/23/2018 Noted Allergy Reaction BACTRIM (SULFAMETHOXAZOLE-TRIMETH* 4 - HivesTORADOL (KETOROLAC) 03/22/2006 14 - Other: See Comments Comments: Increase BPCIPROFL OXACIN 06/10/2013 2 - RashFLEXERIL (CYCLOBENZAPRINE) 06/10/2013 2 - RashMETFORMIN 06/28/2017 14 - Other: See Comments Comments: MigrainesDate Reviewed: 05/23/2018Reviewed by: Carole NguyenSt. Mary Rehabilitation [facility]) KENROY Henriquez - Fully AssessedReason for Visit: Fall [218] Cmt: pain in left side ribs, fell yesterday into ki [facility] counter, trouble breathing todayPrimary Visit Diagnosis:Borderline low [...] AND vomiting [R11.2] INVALID FOR*Encounte r Number: [id number] Status:Closed by CARLYN WU TYPO MACHINE OPERATOR on 05/23/18 nino creatinine on 2017-12-31 Creatinine mass conc 1.2 0.7-1.4 mg/dL Normal 8 [facility] ([id number]) progress on 2017-12 Protein mass HNO ID: [id number]: Carole Stacy rmal 12-31-2017 [place] conc Hieu Bashir CtService: (none)Author Clinic Type: (none)Type: Progress [place] NotesFiled: 12/31/2017 12:48 PMNote (74324) Text: Radiology Service Progress NotePATIENT NAME: Crystal Arriola DianasMRN: [id number] OF SERVICE: December 31, 2017TIME: 12:48 PMPATIENT IDENTITY VERIFICATION COMPLETED USING TWO (2) METHODS: Patientconfirmed name verbally and Date of .PATIENT GENDER DATA: Female. status: : NoBreastfeeding status: NO.PATIENT RELEVANT IMPLANT DATA REVIEWED: YesCONTRAST INDUCED NEPHROPATHY RISK FACTORS: Patient age > 60 yearsCREATININE:CreatinineDate Value Ref Range Asvjks3204/28/2015 0.87 0.51 - 0.95 mg/dL Final04/27/2015 0.86 [...] Fiore RAMO EXAM: Dec 31 2017 9:51AM [facility] 0582 - KARTIK SCREENING W RAMO / Fiore ([id number]) REASON: Other disorders of nervous system * * * * Physician Interpretation * * * *RESULT: #[id number] - [facility] SCREENING W TOMOBILATERAL DIGITAL SCREENING MAMMOGRAM TOMOSYNTHESIS WITH CAD: 12/31/2017HISTORY: Other Disorders Of Nervous System\ Screening Mammogram - patient reports NO breast symptoms /Patient has signed release for outside images\[facility].RESULT:TECHNIQUE: The study was acquired using [...] Kennedy M.D.jr,as/penrad:12/31/2017 14:00:45Imaging Technologist: Janneth Chris RT(R)(M), [place] Specialty Centerletter sent: Normal over 40Mammogram BI-RADS: 1 NegativeTranscriptionist: PenradTranscribe Date/Time: Dec 31 2017 9:52ADictated by: FABBY KENNEDY MDThis examination was interpreted and the report reviewed and electronically signed by: MARAL HALLMAN MD on Dec 31 2017 2:00PM [id number] ct chest w ivcon on 2017-12-31 CT CHEST W * * *Final Report* * *DATE OF EXAM: Catrachita landry 12-31-2017 [facility] IVCON Dec 31 2017 12:22PM [facility] 0539 - CT [place] CHEST W IVCON / [id number] REASON: Other disorders of nervous system * [...] represent herniated intra-abdominal fat or a lipomatous lesion.Joinery Machinist: ABRAM Transcribe Date/Time: Dec 31 2017 2:47PDictated by : VERONICA IBARRA MDThis examination was interpreted and the report reviewed and electronically signed by: VERONICA IBARRA MD on Dec 31 2017 3:07PM [id number] ct abd/pel w ivcon on 2017-12-31 CT ABD/PEL * * *Final Report* * *DATE OF EXAM: December12-31-2017 [facility] IVCON 2017 12:22PM [facility] 0530 - CT ABD/PEL W [facility] IVCON / [place] REASON: Other disorders of nervous (97673) system * * * * Physician Interpretation [...] may be contributing to the patient's symptoms. Joinery Machinist: ABRAM Transcribe Date/Time: Dec 31 2017 1:21PDictated by : PELON GARRETT MDThilakisha examination was interpreted and the report reviewed and electronically signed by: PELON GARRETT MD on Dec 31 2017 1:32PM [id number] cnco on 2017-12-31 CNCO HNO ID: [id number]: Normal 12-17 [facility] Mammography CoordinatorService: [place] (05537) (none)Author Type: PhysicianType: LetterFiled: 01/01/2018 11:32 PMNote Text:December 31, 2017 PID: [id number] [address] [place], [place] [address]Ruvw Ms. Cramer,We are pleased to inform you that the results of your recent breastimaging exam on 12/31/2017 are normal. Early detection of cancer is veryimportant. We also understand recommendations regarding breast cancerscreening are controversial. Please discuss with your primary careprovider which strategy is best for you and whether a mammogram is rightfor you.Your imaging studies and report will be [facility] part of [facility] permanent medical record and are available for yourcontinuing care.Thank you for allowing us to help in meeting your health care needs.Sincerely,Dr. HallmanInterprejania RadiologistWst Specialty Center (Normal over 40) progress on 2017-12 Protein mass HNO ID: [id number]: Mukul payne 12-18-[address] [facility] ClineService: (none)Author Type: Clinic PhysicianType: Progress NotesFiled: [place] 12/18/2017 10:45 AMNote Text:FOLLOW UP (32854) VISITCHIEF COMPLAINTPatient presents with:Established Patient: nausea, constipationMs. [...] Normal 12-18-2017 Shauna and (GASTMN) --------CRYSTAL CRAMER [facility] ([id number]) 1955 FDat e Time Provider Department12/18/17 10:10 AM MUKUL STEVEN GASTMN During Clev eland your visit today, we recorde d the following information about you: Temperature Pulse Blood pressure (70833) Weight 98.3 degrees 79/minut e 139/69 120.8 [...] W IVCONMukul Steven 12/18/2017Referring Provider: YOU PARKS [[id number]]Allergies As of Date: 12/18/2017 Noted Allergy ReactionBACTRIM [...] synd danica [G98.8]Order(s):CREATININE BLD [SQCRET] Order #: [id number] FUTURE KARTIK SCREENING [3485435] Orde r #: [id number] FUTURE CT ABD/PEL W IVCON [0180155] Order #: [id number] FUTURE CT CHEST W IVCON [127 0700] Order #: [id number] FUTURE iv contrast (radiology procedure)CT Chest ABD/PEL-Inject, [...] nursing protocol in the CT contrast administration [facility].Disp: 1 EachRfl: 0 enteric contrast (radiology [...] as designated per enteric contrast guidelinesEncounter Number: [id number] Status:Closed by MUKUL STEVEN DO on 12/18/17 progress on 2017-10 Protein mass HNO ID: [id number]: Cele (Rn) Normal 10-22-2017 [place] LAURIE Gomezervice: (none)Author Type: Clinic Registered NurseType: Progress [place] NotesFiled: 10/22/2017 2:24 PMNote (67585) Text:SmartPill Test Report - [id number] Test start date: 10/11/2017 9:48 AM Interpretation date: 10/22/2017 Ordering physician: Perri Aarontient Information Name: Crystal CramerFlora ID: [id number] date: 1955 Height ft. in.: 5' 6 [...] 10-22-2017 Honey hammer (GASTMN) --------CRYSTAL CRAMER L ([id number]) 1955 [facility] Department10/22/17 CELE VARGAS (ALMA) GASTMN During your [facility] visit today, we recorded the following information about you:Cele Vargas RN, RN 10/22/2017 2:24 PM ([id number]) SignedProMed[facility] Test Report - [id number] Test start date: 10/11/2017 9:48 AM Interpretation date: 8 Ordering physician: Radha Aaron Information Name: Crystal Cramer ID: [id number] Marlene h date: 1955 Height ft. in.: [...] TABLET Take 40 mg by mouth once laicia* NOVOLOG PENFILL SUBCUTANEOUS Inject subcutaneously. NOVOLOG FLEXPEN [...] FOR*Follow-up and Disposition History RecordedEnckaylah Tomlinson mber: [id number] Status:Closed by CELE VARGAS on 10/22/17 cnpn on 2017-10-22 CNPN Telephone Normal 10-22-2017 [place] (GASTMD) --------BELACRYSTAL [facility] ([id number]) 1955 FDat e Time Provider Department10/22/17 MUKUL STEVEN GASTMN During your visit Juwan monzon today, we recorded the follo wing information about you:Manuel Meza, RN, RN 10/22/2017 5:10 PM ([id number]) SignedPatient is calling Dr. Steven's office to [...] Explained that appeal letter was faxed to [facility] regarding he r IVIG therapy. [...] Signed By: Manuel Meza RN In Department: DC ALPHONSOBlanchard Valley Health Systemergies As of Date: 10/22/2017 Noted Allergy ReactionBACTRIM (SULFAMETHOX AZOLE-TRIMETH*07/31/2017 4 - HivesCIPROFLOXACIN 06/10/2013 16 - UnknownFLEXERIL (CYCLOBENZAP RINE) 06/10/2013 16 - UnknownMETFORMIN 06/28/2017 14 - Other: See Comments Comments: MigrainesTORADOL ( KETOROLAC) 03/22/2006band aids [Other] 05/27/2007Date Reviewed: 07/31/2017Reviewed by: Taras Steven - Fully AssessedReason for Visit: Care Coordination [0712] Cmt: Gastroparesis Clinic: Smart Pill results Patient [...] on 2017-09 Protein mass conc HNO ID: [id number]: Normal 10-11-2017 [facility] Cele (Rn) Azael Vargas ([id number]) RNService: (none)Author Type: Registered NurseType: Progress NotesFiled: 10/11/2017 10:14 AMNote Text:Referring MD: ?Teodoro Aaron: ?gastroparesisDate of SmartPill Procedure: ?10/11/2017 ?SmartPill ingested withoutdifficulty at 10:00am. ?Discharge instructions completed and given topatient.Return of Equipment: ?Micah Vargas RN Capsule Endoscopy Nurse josepn on 2017-10-08 CNPN Telephone Normal 10-08-2017 [place] (GASTMN) --------CRYSTAL CRAMER [facility] ([id number]) 1955 FDat e Time Provider Department10/08/17 MUKUL STEVEN During your [place] visit today, we recorded the following information about you:Manuel Meza RN, RN 10/08/2017 4:16 PM (00 000) SignedContacted [employer] [phone] (option 1 and then option 0) to obtain acopy of patient's denial letter for IVIG. They are to fax to the office today.Manuel Meza RN, RN 10/08/2017 5:19 PM SignedReceived copy of deng l letter from [employer] 10/08/17 and forwarded toStacey at [facility].Allergies As of Date: 10/08/2017 Noted Allergy [...] MANUEL MEZA on 10/08/17 cnpn on 2017-09-[facility] 09-12-2017 [place] (JOSE CARLOS) --------CRYSTAL CRAMER [facility] ([id number]) 1955 FDat e Time Provider Department09/12/17 MUKUL STEVEN [facility] During your [place] visit today, we recorded the following information [...] - Fully AssessedReason for Visit: Care Coordination [8825] Cmt: Gastroparesis Clinic: anti nasuea mediatio n request Patient Education [91] Cmt: Phenergan/Reglan interactionReason For Visit History RecordedPr imary Visit Diagnosis:Nausea [R11.0]Order(s):promethazine (PHENERGAN) 25 mg tabletTake 1 tablet by [facility] every 8 hours as needed (for [...] Thyrotropin Qn 2.260 0.400-5.500 uU/mL Normal 07-31-2017 [facility] (59230) Comment: Performed By: #### CK, FT4, TSH, LD6, HBA1C, LACPYR, AAQTPL, GADCAB, CARNPL, PLTHY ####[facility] L [address] [place], [place] [phone]#### CASRFX , LG1RFX, PARNEO #### [facility]-[address] [phone] progress on 2017-07 Protein mass HNO ID: [id number]: Manuel Catrachita landry 07-31-2017 [place] leno (Rn) LAURIE Mezaervice: Clinic (none)Author Type: Registered [place] NurseType: Progress NotesFiled: ([id number]) 07/31/2017 10:55 AMNote Text:Met with patient for [...] RN In Department:GASTROENTEROLOGY Protein mass HNO ID: [id number]: Rayne stone 07-31-2017 [place] leno Odom BaumannService: Clinic (none)Author Type: C leveland PsychologistType: Progress (20824) NotesFiled: 07/31/2017 10:40 AMNote Text:Behavioral MedicineDigestive Disease and Surgery InstituteName: Crystal Mallory#: [id number]: 07/31/17Time: [address] hourRef[address] by: Dr. Cruz for [...] Plasma Thymidine Det View results in Normal [facility] Scanned Documents link [place] (55941) when available. Comment: Performed By: #### CK, FT4, TSH, LD6, HBA1C, LACPYR, AAQTPL, GADCAB, CARNPL, PLTHY ####[facility] [place], [place] [phone]#### CASRFX , LG1RFX, PARNEO #### [facility] [place], [place] [phone] paraneoplast autoabs on 2017-07-31 ACh Receptor Bind Ab 0.00 <=0.02 nmol/L Normal 7 [facility] (20888) Comment: Result Comment: (NOTE)------ ADDITIONAL INFORMATION --This test was developed and its performance characteristicsdetermined by [facility] in a manner consistent with CLIArequirements. This test has not been cleared or approved bythe U.S. Food and Drug Administration. Performed By: #### CK, FT4, TSH, LD6, HBA1C, LACPYR, AAQTPL, GADCAB, CARNPL, PLTHY ####[facility] [place], [place] [phone]#### CASRFX , LG1RFX, PARYOUO #### [address] [phone] AChR Ganglionic Neur 0.00 <=0.02 nmol/L Normal 7 [facility] (20259) Comment: Result Comment: (NOTE)------ ADDITIONAL INFORMATION --This test was developed and its performance characteristicsdetermined by [facility] in a manner consistent with CLIArequirements. This test has not been cleared or approved bythe U.S. Food and Drug Administration. Performed By: #### CK, FT4, TSH, LD6, HBA1C, LACPYR, AAQTPL, GADCAB, CARNPL, PLTHY ####[facility] [address] [place], [place] [phone]#### CASRFX , LG1RFX, PARNEO #### [facility] [place], [place] [phone] Amphiphysin Ab, S Negative <1:240 Normal 07-31-2017 [facility] (03543) Comment: Result Comment: (NOTE)------ ADDITIONAL INFORMATION --This test was developed and its performance characteristicsdetermined by [facility] in a manner consistent with CLIArequirements. This test has not been cleared or approved bythe U.S. Food and Drug Administration. Performed By: #### CK, FT4, TSH, LD6, HBA1C, LACPYR, AAQTPL, GADCAB, CARNPL, PLTHY ####[facility] [place], [place] [phone]#### CASRFX , LG1RFX, PARNEO #### [address] [phone] ERINN 1, S Negative <1:240 Normal 07-31-2017 [facility] (59056) Comment: Performed By: #### CK, FT4, TSH, LD6, HBA1C, LACPYR, AAQTPL, GADCAB, CARNPL, PLTHY ####[facility] [address] [place], [place] [phone]#### CASRFX , LG1RFX, PARNEO #### [facility] [place], [place] [phone] ERINN 2, S Negative <1:240 Normal 07-31-2017 [facility] (74389) Comment: Result Comment: (NOTE)------ ADDITIONAL INFORMATION --This test was developed and its performance characteristicsdetermined by [facility] in a manner consistent with CLIArequirements. This test has not been cleared or approved bythe U.S. Food and Drug Administration. Performed By: #### CK, FT4, TSH, LD6, HBA1C, LACPYR, AAQTPL, GADCAB, CARNPL, PLTHY ####[facility] [address] [place], [place] [phone]#### CASRFX , LG1RFX, PARNEO #### [facility] [place], [place] [phone] ERINN 3, S Negative <1:240 Normal 07-31-2017 [facility] (26404) Comment: Result Comment: (NOTE)------ ADDITIONAL INFORMATION --This test was developed and its performance characteristicsdetermined by [facility] in a manner consistent with CLIArequirements. This test has not been cleared or approved bythe U.S. Food and Drug Administration. Performed By: #### CK, FT4, TSH, LD6, HBA1C, LACPYR, AAQTPL, GADCAB, CARNPL, PLTHY ####[facility] [place], [place] [phone]#### CASRFX , LG1RFX, PARNEO #### [facility] [place], [place] [phone] Anti-glial Nuc Ab 1 Negative <1:240 Normal 07-31-2017 [facility] (64327) Comment: Result Comment: (NOTE)------ ADDITIONAL INFORMATION --This test was developed and its performance characteristicsdetermined by [facility] in a manner consistent with CLIArequirements. This test has not been cleared or approved bythe U.S. Food and Drug Administration. Performed By: #### CK, FT4, TSH, LD6, HBA1C, LACPYR, AAQTPL, GADCAB, CARNPL, PLTHY ####[facility] [place], [place] [phone]#### CASRFX , LG1RFX, PARNEO #### [address] [phone] Ca Ch Bind Ab,N Type 0.00 <=0.03 nmol/L Normal [facility] (78915) Comment: Result Comment: (NOTE)------ ADDITIONAL INFORMATION --This test was developed and its performance characteristicsdetermined by [facility] in a manner consistent with CLIArequirements. This test has not been cleared or approved bythe U.S. Food and Drug Administration. Performed By: #### CK, FT4, TSH, LD6, HBA1C, LACPYR, AAQTPL, GADCAB, CARNPL, PLTHY ####[facility] [place], [place] [phone]#### CASRFX , LG1RFX, PARNEO #### [address] [phone] Ca Chn Bind Ab, P/Q 0.00 <=0.02 nmol/L Normal 07-31-2017 [facility] (22007) Comment: Result Comment: (NOTE)------ ADDITIONAL INFORMATION --This test was developed and its performance characteristicsdetermined by [facility] in a manner consistent with CLIArequirements. This test has not been cleared or approved bythe U.S. Food and Drug Administration. Performed By: #### CK, FT4, TSH, LD6, HBA1C, LACPYR, AAQTPL, GADCAB, CARNPL, PLTHY ####[facility] [place], [place] [phone]#### CASRFX , LG1RFX, PARNEO #### [facility] [place], [place] [phone] CRMP 5 IgG, S Negative <1:240 Normal 07-31-[address] [facility] (48196) Comment: Result Comment: (NOTE)------ ADDITIONAL INFORMATION --This test was developed and its performance characteristicsdetermined by [facility] in a manner consistent with CLStrong Memorial Hospitalirements. This test has not been cleared or approved bythe U.S. Food and Drug Administration. Performed By: #### CK, FT4, TSH, LD6, HBA1C, LACPYR, AAQTPL, GADCAB, CARNPL, PLTHY ####[facility] [place], [place] [phone]#### CASRFX , LG1RFX, PARNEO #### [facility] [place], [place] [phone] Interpretive Comment (NOTE) Normal 7 [facility] (92706) Comment: Result Comment: Reflexed maria del carmen t(s) performed per testing algorithm.*The following antibody was ident ified: voltage gatedpotassium channel (VGKC-complex); negative for leucine-rich, glioma inactivated 1 protein-IgG (LGI1) andContactin-associat ed rpbxrdp-7-KrJ (CASPR2). * The resultsof a positive VGKC-complex [...] Rasheed CJ. Expa nded phenotypes and outcomes [id number] LGI1/CASPR2-IgG positive pat ients. Annals of Gtypqhfbv7601; 82:79-92. * Doyle B, Jreemie M, Karla T, Aliciat harjinder I,Mindhaven S, Michelle C, Edgard W, Reginaldo [...] LGI1 and Caspr2 antibodies.N eurology, 2016; 86; 5506-2661. Performed By: #### CK, FT4, TSH, LD6, HBA1C, LACPYR, AAQTPL, GADCAB, CARNPL, PLTHY ####[facility] L [address] [place], [place] [phone]#### CASRFX , LG1RFX, PARNEO #### [facility] [address] [place], [place] [phone] Neur V-G K+ Chann Ab 0.11 <=0.02 nmol/L [facility] 7 [facility] ([id number]) Comment: Result Comment: (NOTE)------ ADDITIONAL INFORMATION --This test was developed and its performance characteristicsdetermined by [facility] in a manner consistent with CLIArequirements. This test has not been cleared or approved bythe U.S. Food and Drug Administration. Performed By: #### CK, FT4, TSH, LD6, HBA1C, LACPYR, AAQTPL, GADCAB, CARNPL, PLTHY ####[facility] [place], [place] [phone]#### CASRFX , LG1RFX, PARNEO #### [facility] [place], [place] [phone] PARNEO Reflex Tests None. Normal 07-31-2017 [facility] (43034) Comment: Result Comment: (NOTE)------ ADDITIONAL INFORMATION --This test was developed and its performance characteristicsdetermined by [facility] in a manner consistent with CLIArequirements. This test has not been cleared or approved bythe U.S. Food and Drug Administration. Performed By: #### CK, FT4, TSH, LD6, HBA1C, LACPYR, AAQTPL, GADCAB, CARNPL, PLTHY ####[facility] [place], [place] [phone]#### CASRFX , LG1RFX, PARNEO #### [facility] [place], [place] [phone] [employer] PACKAGE SYMBOL STAMPER 1, S Negative <1:240 Normal 07-31-2017 [facility] ([id number]) Comment: Result Comment: (NOTE)------ ADDITIONAL INFORMATION --This test was developed and its performance characteristicsdetermined by [facility] in a manner consistent with CLIArequirements. This test has not been cleared or approved bythe U.S. Food and Drug Administration. Performed By: #### CK, FT4, TSH, LD6, HBA1C, LACPYR, AAQTPL, GADCAB, CARNPL, PLTHY ####[facility] [address] [place], [place] [phone]#### CASRFX , LG1RFX, PARNEO #### [facility] [place], [place] [phone] SEMICONDUCTOR PACKAGE SYMBOL STAMPER 2, S Negative <1:240 Normal 07-31-2017 [facility] ([id number]) Comment: Result Comment: (NOTE)------ ADDITIONAL INFORMATION --This test was developed and its performance characteristicsdetermined by [facility] in a manner consistent with [employer]hot[employer]. This test has not been cleared or approved bythe U.S. Food and Drug Administration. Performed By: #### CK, FT4, TSH, LD6, HBA1C, LACPYR, AAQTPL, GADCAB, CARNPL, PLTHY ####[facility] [address] [place], [place] [phone]#### CASRFX , LG1RFX, PARNEO #### [address] [phone] SEMIC[employer]CTOR PACKAGE SYMBOL STAMPER Tr, S Negative <1:240 Normal 07-31-2017 [facility] (74018) Comment: Result Comment: (NOTE)------ ADDITIONAL INFORMATION --This test was developed and its performance characteristicsdetermined by [facility] in a manner consistent with CLIArequirements. This test has not been cleared or approved bythe U.S. Food and Drug Administration. Performed By: #### CK, FT4, TSH, LD6, HBA1C, LACPYR, AAQTPL, GADCAB, CARNPL, PLTHY ####[facility] [address] [place], [place] [phone]#### CASRFX , LG1RFX, PARNEO #### [facility] [place], [place] [phone] Striational Ab, S Negative <1:120 Normal 07-31-2017 [facility] (49923) Comment: Result Comment: (NOTE)------ ADDITIONAL INFORMATION --This test was developed and its performance characteristicsdetermined by [facility] in a manner consistent with CLIArequirements. This test has not been cleared or approved bythe U.S. Food and Drug Administration. Performed By: #### CK, FT4, TSH, LD6, HBA1C, LACPYR, AAQTPL, GADCAB, CARNPL, PLTHY ####[facility] [place], [place] [phone]#### CASRFX , LG1RFX, PARNEO #### [address] [phone] lgi1-igg reflex on 2017-07-31 LGI1-IGG CBA SERUM Negative Negative Normal 07-31-2017 [facility] (17148) Comment: Result Comment: (NOTE)------ ADDITIONAL INFORMATION --This test was developed and its performance characteristicsdetermined by [facility] in a manner consistent with CLIArequirements. This test has not been cleared or approved bythe U.S. Food and Drug Administration. Performed By: #### CK, FT4, TSH, LD6, HBA1C, LACPYR, AAQTPL, GADCAB, CARNPL, PLTHY ####[facility] [address] [place], [place] [phone]#### CASRFX , LG1RFX, PARNEO #### [facility] [place], [place] [phone] ld on 2017-07-31 LD 241 135-214 U/L High 07-31-2017 [facility] (36722) Comment: Performed By: #### CK, FT4, TSH, LD6, HBA1C, LACPYR, AAQTPL, GADCAB, CARNPL, PLTHY ####[facility] [address] [place], [place] [phone]#### CASRFX , LG1RFX, PARNEO #### [facility] [place], [place] [phone] lactate/pyruvate on 2017-07-31 Lactate molar conc 2.1 0.5-2.2 mmol/L Normal 07-31-2017 [facility] (31870) Comment: Performed By: #### CK, FT4, TSH, LD6, HBA1C, LACPYR, AAQTPL, GADCAB, CARNPL, PLTHY ####[facility] [address] [place], [place] [phone]#### CASRFX , LG1RFX, PARNEO #### [facility] [place], [place] [phone] Pyruvate 0.15 0.03-0.08 mmol/L High 07-31-2017 [facility] (99751) Comment: Result Comment: Specimen was not treated within the desired 30 minute time. Pyruvate result may be false ly decreased and lactate result may be falsely elevated. Performed By: #### CK, FT4, TSH, LD6, HBA1C, LACPYR, AAQTPL, GADCAB, CARNPL, PLTHY ####[facility] [address] [place], [place] [phone]#### CASRFX , LG1RFX, PARNEO #### [facility] [place], [place] [phone] hemoglobin a1c on 2 Glucose mass conc >240 mg/dL Normal 07-31-2017 [facility] (45874) Comment: Result Comment: eAG: (Estima patrick average glucose) is a calculated value from HgbA1c and is telephone service representative of the average blood glucose level in the last 2-3 month period. Performed By: #### CK, FT4, TSH, LD6, HBA1C, LACPYR, AAQTPL, GADCAB, CARNPL, PLTHY ####[facility] [address] [place], [place] [phone]#### CASRFX , LG1RFX, PARNEO #### [facility] [place], [place] [phone] Hemoglobin A1c/Hemoglobin.total 10.7 4.3-5.6 % High 07-31-2017 [facility] mass fraction (Bld) [place] (52026) Comment: Result Comment: [place] [employer] betes Association guidelines indicate that patients with HgbA1c in the range 5.7-6.4% are at increased risk for development of diabetes, and intervention by lifestyle modification may be beneficial. HgbA1c greater o r equal to 6.5% is considered diagnostic of diabetes. Performed By: #### CK, FT4, TSH, LD6, HBA1C, LACPYR, AAQTPL, GADCAB, CARNPL, PLTHY ####[facility] [address] [place], [place] [phone]#### CASRFX , LG1RFX, PARNEO #### [facility] [place], [place] [phone] glutamic ac decar ab on 2017-07-31 Glutamic Ac Decar Ab <5.0 <5.0 Normal 7 [facility] (34093) Comment: Performed By: #### CK, FT4, TSH, LD6, HBA1C, LACPYR, AAQTPL, GADCAB, CARNPL, PLTHY ####[facility] [address] [place], [place] [phone]#### CASRFX , LG1RFX, PARNEO #### [facility] [facility] [place], [place] [phone] free t4 on T4 free mass conc 1.2 0.9-1.7 ng/dL Normal 07-31-2017 [facility] (83390) Comment: Performed By: #### CK, FT4, TSH, LD6, HBA1C, LACPYR, AAQTPL, GADCAB, CARNPL, PLTHY ####[facility] [address] [place], [place] [phone]#### CASRFX , LG1RFX, PARNEO #### [facility] [place], [place] [phone] cnov on 2017-07-31 CNOV Office Visit Normal 07-31-2017 [place]level and (GASTMN) --------CRYSTAL CRAMER [facility] L ([id number]) 1955 FDat e Time Provider Wdnfbzbxbh46/13/17 10:00 AM MUKUL STEVEN GASTMN During [facility] your visit today, we recorde d the following information about you: Temperature Pulse Blood pressure () Weight 98.6 degrees 68/minut e 175/87 107 kg Height 1.676 mMsaul Steven DO 07/31/2017 10:10 AM SignedGASTROPARESIS CONSULTP [place] referred by Dr. You Parks for [...] mg 2x per day (taking for 2years); Manley 4x per day (20 years). Diet: eats [...] mg 2x per day(taking for 2 years); Manley 4x per day (20 years)Drug use- History or current drug use (Marijuana, Cocaine, Heroine , etc...) NoEating Disorders- Does the patient have a history of eating disorders NoPsychiatric Diso rders- Does the patient have a history of psychiatric disorders including PTSD: NoNutrition- Has the p atient met with a modeling and simulation analyst for diet recommendations withGastroparesis? No - Jejunostomy [...] Cramer Age [age] year old MRN [id number] ConsultTest Date Completed ResultsLabsEGD [facility] Findings:The examined [...] .?IMPRESSION:Markedly delayed solid gastric emptying.Gastric Emptying Study [facility] Findings:Initially static images were obtained [...] the end of 3 hours.XR Upper GI [facility] Impression:1. Findings described above con sistent with gastritis and duodenitis withmultiple small superficial ulcerations and mucosal fold thickening. No largeulcers or masses are identified.2. Multiple spontaneous episodes of GE r eflux to the level above the clavicles.There also are tertiary contractions consistent with presbyesophagus. Noevidence of esophageal ulceration or stricture is seen. Correlate clinically.3 . Chronic changes as described above.ConsultsGI [address], [facility] SUBJECTIVE: Crystal chen s last seen [...] HISTORYProcedure Laterality Date- COLONOSCOP W/ OR W/O [facility] SPEC 06/19/2013 Colonoscopy- COLONOSCOPY [...] mg tabletMichael Maurizio, DO2016Referring Provider: YOU PARKS [[id number]]Allergies As of Date: 07/31/2017 Noted Aller gy ReactionBACTRIM (SULFAMETHOXAZOLE- TRIMETH*07/31/2017 4 - HivesCIPROFLOXACIN 3 16 - UnknownFLEXERIL (CYCLOBENZAPRINE) 06/10/2013 16 - UnknownMETFORMIN 06/28/2017 14 - Other: See C omments Comments: MigrainesTORADOL (KETOROLAC) 03/22/2006band aids [Other] 05/27/2007Date Reviewed: Reviewed by: Mukul Steven - Fully AssessedReason for Visit: Consult [502] Cmt: Gastropar esisPrimary Visit Diagnosis:Gastroparesis [K31.84]Order(s):CK CREATINE KINASE [SQCK] Order #: [id number] FUTURE LD LACTATE DEHYDRO [SQLD6] Order #: [id number] FUTURE HGB A1C [JVMRH8L] Order #: [id number] FUTURE TSH BLD [SQTSH] Order #: [id number] FUTURE T4 FREE/FREE THYROX [SQFT4] Order #: [id number] FUTURE PYRUVATE+LACTATE BL [SQLACPYR] Order #: [id number] FUTURE AMINO ACID QUANT BLD [SQAAQTPL] Or batsheva #: [id number] FUTURE CARNITINE FREE/TOTAL, PLASMA [SQCARNPL] Order #: [id number] FUTURE PARANEOPLA ST AUTOABS [SQPARNEO] Order #: [id number] FUTURE GLUTAMIC AC DECARBOXYLASE AB [SQGADCAB] Order #: [id number] FUTURE PLASMA THYMIDINE DETERMINATION [SQPLTHY] Order #: [id number] FUTURE CAPSULE ENDOSCOPY SMA RT [] Order #: [id number] FUTURE mirtazapine (REMERON) 15 mg tabletTake 1 [...] Normal 07-31-2017 Shauna and (SVEN) --------CRYSTAL CRAMER ([id number]) 1955 [facility] e Time Provider Urvlgeusrx86/13/17 9:00 AM RAYNE COOK During your visit today, we recorded the following information about you:Rayne Odom, PHD ([id number]) 07/31/2017 10:40 AM SignedBe [facility] MassachusettsDigestive Disease and Surgery InstituteName: Crystal Shaw[place]#: [id number]: 07/19 11/02Time: 1 hourRef[address]: Dr. Cruz [...] elly response. She was given the website [facility] and shown the relaxa tion recordings withthe recommendation to practice this and the rationale behind their use.She was urg ed to discuss with Dr. Steven to possible use of Cymbalta fordepression and pain, her use of opioids for her chronic pain, and the benefitsof exercise.Rayne Odom, Ph.D.Referring Provider: MUKUL RUIZ [[id number]]Allergies As of Date: 07/31/2017 Noted Allergy ReactionBACTRIM [...] Normal 07-31-2017 Skip kennedy (GASTMN) --------CRYSTAL CRAMER [facility] ([id number]) 1955 FDat e Time Provider Gusnakomev71/13/17 10:30 AM NURSE PT ED KOBE GASTMN [...] In Department: GASTROENTEROLOGYReferring Pr ovider: HARVEY BELCHER [[id number]]Allergies As of Date: 07/31/2017 Noted Allergy ReactionBACTRI [...] act/vol 54 42-196 U/L Normal 07-31-2017 C [facility] (50222) Comment: Result Comment: Please note the updated, gender-specific reference range for this test (effective 016). Performed By: #### CK, FT4, TSH, LD6, HBA1C, LACPYR, AAQTPL, GADCAB, CARNPL, PLTHY ####[facility] L [address] [place], [place] [phone]#### CASRFX , LG1RFX, PARNEO #### [facility] LabKrista [address] [place], [place] [phone] caspr2-igg reflex o n 2017-07-31 CASPR2-IGG CBA SERUM Negative Negative Normal 7 [facility] (51959) Comment: Result Comment: (NOTE)------ ADDITIONAL INFORMATION --This test was developed and its performance characteristicsdetermined by [facility] in a manner consistent with CLIArequirements. This test has not been cleared or approved bythe U.S. Food and Drug Administration. Performed By: #### CK, FT4, TSH, LD6, HBA1C, LACPYR, AAQTPL, GADCAB, CARNPL, PLTHY ####[facility] L [address] [place], [place] [phone]#### CASRFX , LG1RFX, PARNEO #### [facility]-[address] [phone] carnitine fr/tot, pl on 2017-07-31 Carnitine Interp (NOTE) Normal 07-31-2017 [facility] (89959) Comment: Result Comment: This assay o f [...] characteristics determinedby the Pathology and Laboratory Medicine [place] at the [place] [facility]. The U.S. Food and Drug Administration has not approved orcleared this test , however, FDA clearance or approval is not currentlyrequired for clinic al use. Performed By: #### CK, FT4, TSH, LD6, HBA1C, LACPYR, AAQTPL, GADCAB, CARNPL, PLTHY ####[facility] [address] [place], [place] [phone]#### CASRFX , LG1RFX, PARNEO #### [facility] [place], [place] [phone] Carnitine Review Reviewed by [facility] Normal 07-19 [facility] MD Kayode, PhD [facility] ([id number]) (67711) Comment: Performed By: #### CK, FT4, TSH, LD6, HBA1C, LACPYR, AAQTPL, GADCAB, CARNPL, PLTHY ####[facility] [place], [place] [phone]#### CASRFX , LG1RFX, PARNEO #### [facility] [place], [place] [phone] Free L-Carnitine 29 22-52 umol/L Normal 07-31-2017 [facility] (47588) Comment: Performed By: #### CK, FT4, TSH, LD6, HBA1C, LACPYR, AAQTPL, GADCAB, CARNPL, PLTHY ####[facility] [place], [place] [phone]#### CASRFX , LG1RFX, PARNEO #### [facility] [place], [place] [phone] Free/Tot Carn Ratio 0.725 0.7-0.9 Normal 07-31-2017 [facility] (47692) Comment: Performed By: #### CK, FT4, TSH, LD6, HBA1C, LACPYR, AAQTPL, GADCAB, CARNPL, PLTHY ####[facility] [address] [place], [place] [phone]#### CASRFX , LG1RFX, PARNEO #### [facility] [place], [place] [phone] Total L-Carnitine 40 27-66 umol/L Normal 07-31-2017 [facility] (03152) Comment: Performed By: #### CK, FT4, TSH, LD6, HBA1C, LACPYR, AAQTPL, GADCAB, CARNPL, PLTHY ####[facility] [address] [place], [place] [phone]#### CASRFX , LG1RFX, PARNEO #### [facility] [place], [place] [phone] amino acids quant,pl on 2017-07-31 Alanine 389 177-583 um/L Normal 07-31-2017 [facility] (59315) Comment: Performed By: #### CK, FT4, TSH, LD6, HBA1C, LACPYR, AAQTPL, GADCAB, CARNPL, PLTHY ####[facility] [address] [place], [place] [phone]#### CASRFX , LG1RFX, PARNEO #### [facility] [place], [place] [phone] Alloisoleucine 0 0-2 um/L Normal 07-31-2017 [facility] (06764) Comment: Performed By: #### CK, FT4, TSH, LD6, HBA1C, LACPYR, AAQTPL, GADCAB, CARNPL, PLTHY ####[facility] [place], [place] [phone]#### CASRFX , LG1RFX, PARNEO #### [facility] [place], [place] [phone] Alpha-aminoadipic Ac 0 0-6 um/L Normal 7 [facility] (22211) Comment: Performed By: #### CK, FT4, TSH, LD6, HBA1C, LACPYR, AAQTPL, GADCAB, CARNPL, PLTHY ####[facility] [place], [place] [phone]#### CASRFX , LG1RFX, PARNEO #### [facility] [place], [place] [phone] Review Reviewed by [place] Normal 07-31-2017 [facility] Jodee, Ph.D. Suman case (41212) Comment: Performed By: #### CK, FT4, TSH, LD6, HBA1C, LACPYR, AAQTPL, GADCAB, CARNPL, PLTHY ####[facility] [place], [place] [phone]#### CASRFX , LG1RFX, PARNEO #### [facility] [place], [place] [phone] Arginine 19 15-128 um/L Normal 07-31-2017 [facility] (29041) Comment: Performed By: #### CK, FT4, TSH, LD6, HBA1C, LACPYR, AAQTPL, GADCAB, CARNPL, PLTHY ####[facility] [address] [place], [place] [phone]#### CASRFX , LG1RFX, PARNEO #### [facility] [place], [place] [phone] Asparagine 30 35-74 um/L Low 07-31-2017 [facility] (20129) Comment: Performed By: #### CK, FT4, TSH, LD6, HBA1C, LACPYR, AAQTPL, GADCAB, CARNPL, PLTHY ####[facility] [address] [place], [place] [phone]#### CASRFX , LG1RFX, PARNEO #### [facility] [place], [place] [phone] Aspartic Acid 6 1-25 um/L Normal 07-31-[address] [facility] (39393) Comment: Performed By: #### CK, FT4, TSH, LD6, HBA1C, LACPYR, AAQTPL, GADCAB, CARNPL, PLTHY ####[facility] [address] [place], [place] [phone]#### CASRFX , LG1RFX, PARNEO #### [facility] [place], [place] [phone] Citrulline 24 12-55 um/L Normal 07-31-2017 [facility] (59255) Comment: Performed By: #### CK, FT4, TSH, LD6, HBA1C, LACPYR, AAQTPL, GADCAB, CARNPL, PLTHY ####[facility] [address] [place], [place] [phone]#### CASRFX , LG1RFX, PARNEO #### [facility] [place], [place] [phone] Cystine 42 5-82 um/L Normal 07-31-2017 [facility] (14269) Comment: Performed By: #### CK, FT4, TSH, LD6, HBA1C, LACPYR, AAQTPL, GADCAB, CARNPL, PLTHY ####[facility] [address] [place], [place] [phone]#### CASRFX , LG1RFX, PARNEO #### [facility] [place], [place] [phone] Glutamic Acid 130 10-131 um/L Normal 07-31-[address] [facility] (40009) Comment: Performed By: #### CK, FT4, TSH, LD6, HBA1C, LACPYR, AAQTPL, GADCAB, CARNPL, PLTHY ####[facility] [address] [place], [place] [phone]#### CASRFX , LG1RFX, PARNEO #### [facility] [place], [place] [phone] Glutamine 391 205-756 um/L Normal 07-31-2017 [facility] (50910) Comment: Performed By: #### CK, FT4, TSH, LD6, HBA1C, LACPYR, AAQTPL, GADCAB, CARNPL, PLTHY ####[facility] [address] [place], [place] [phone]#### CASRFX , LG1RFX, PARNEO #### [facility] [place], [place] [phone] Glycine 139 151-490 um/L Low 07-31-2017 [facility] (93769) Comment: Performed By: #### CK, FT4, TSH, LD6, HBA1C, LACPYR, AAQTPL, GADCAB, CARNPL, PLTHY ####[facility] [address] [place], [place] [phone]#### CASRFX , LG1RFX, PARNEO #### [facility] [place], [place] [phone] Histidine 55 72-124 um/L Low 07-31-2017 [facility] (35238) Comment: Performed By: #### CK, FT4, TSH, LD6, HBA1C, LACPYR, AAQTPL, GADCAB, CARNPL, PLTHY ####[facility] [address] [place], [place] [phone]#### CASRFX , LG1RFX, PARNEO #### [facility] [place], [place] [phone] Hydroxylysine 1 0 um/L High 07-31-[address] [facility] (99295) Comment: Performed By: #### CK, FT4, TSH, LD6, HBA1C, LACPYR, AAQTPL, GADCAB, CARNPL, PLTHY ####[facility] [address] [place], [place] [phone]#### CASRFX , LG1RFX, PARNEO #### [facility] [place], [place] [phone] Hydroxyproline 10 0-53 um/L Normal 07-31-2017 [facility] (42504) Comment: Performed By: #### CK, FT4, TSH, LD6, HBA1C, LACPYR, AAQTPL, GADCAB, CARNPL, PLTHY ####[facility] [place], [place] [phone]#### CASRFX , LG1RFX, PARNEO #### [facility] [place], [place] [phone] Interpretation (NOTE) Normal 07-31-2017 [facility] (49990) Comment: Result Comment: THIS PLASMA AMINO ACID ANALYSIS SHOWS LOW LEVELS OF SEVERAL AMINOACIDS SUGGESTING REDUCE D DIETARY AMINO ACID INTAKE. Date of Analysis:08/02/17 Date of Re view: 08/02/17 Reference intervals from Christina Ronquillo MG, Floyd GEORGE, marsha CROCKER: Biochemical Genetics: A Laboratory Manual, Copyright [address] [facility] [employer] Reference intervals not established for some ami no acids. This test was developed and its performance characteristics determined by [facility]'s Jenny JFlora [facility] Pathology and [facility] ([facility]). It has not been cleared or approved by the FDA. RT-PLMI is regulated under CLIA as qualified to perform high-co mplexity testing. This test is used for clinical purposes. It should not be r egarded as investigational or for research. Performed By: #### CK, FT4, TSH, LD6, HBA1C, LACPYR, AAQTPL, GADCAB, CARNPL, PLTHY ####[facility] [place], [place] [phone]#### CASRFX , LG1RFX, PARNEO #### [facility] [place], [place] [phone] Isoleucine 51 30-108 um/L Normal 07-31-2017 [facility] (46255) Comment: Performed By: #### CK, FT4, TSH, LD6, HBA1C, LACPYR, AAQTPL, GADCAB, CARNPL, PLTHY ####[facility] [place], [place] [phone]#### CASRFX , LG1RFX, PARNEO #### [facility] [place], [place] [phone] Leucine 83 72-201 um/L Normal 07-31-2017 [facility] (32335) Comment: Performed By: #### CK, FT4, TSH, LD6, HBA1C, LACPYR, AAQTPL, GADCAB, CARNPL, PLTHY ####[facility] [place], [place] [phone]#### CASRFX , LG1RFX, PARNEO #### [facility] [place], [place] [phone] Lysine 116 116-296 um/L Normal 07-31-2017 [facility] (95842) Comment: Performed By: #### CK, FT4, TSH, LD6, HBA1C, LACPYR, AAQTPL, GADCAB, CARNPL, PLTHY ####[facility] [address] [place], [place] [phone]#### CASRFX , LG1RFX, PARNEO #### [facility] [place], [place] [phone] Methionine 13 10-42 um/L Normal 07-31-2017 [facility] ([id number]) Comment: Performed By: #### CK, FT4, TSH, LD6, HBA1C, LACPYR, AAQTPL, GADCAB, CARNPL, PLTHY ####[facility] [address], [place] [phone]#### CASRFX , LG1RFX, PARNEO #### [facility] [place], [place] [phone] Ornithine 73 48-195 um/L Normal 07-31-2017 [facility] ([id number]) Comment: Performed By: #### CK, FT4, TSH, LD6, HBA1C, LACPYR, AAQTPL, GADCAB, CARNPL, PLTHY ####[facility] [id number], [place] [phone]#### CASRFX , LG1RFX, PARNEO #### [facility] [place], [place] [phone] Phenylalanine 49 35-85 um/L Normal 07-31-[address] [facility] ([id number]) Comment: Performed By: #### CK, FT4, TSH, LD6, HBA1C, LACPYR, AAQTPL, GADCAB, CARNPL, PLTHY ####[facility] [address], [place] [phone]#### CASRFX , LG1RFX, PARNEO #### [facility] [place], [place] [phone] Proline 229 97-329 um/L Normal 07-31-2017 [facility] ([id number]) Comment: Performed By: #### CK, FT4, TSH, LD6, HBA1C, LACPYR, AAQTPL, GADCAB, CARNPL, PLTHY ####[facility] [address] [place], [place] [phone]#### CASRFX , LG1RFX, PARNEO #### [facility] [place], [place] [phone] Sarcosine 0 0 um/L Normal 07-31-2017 [facility] ([id number]) Comment: Performed By: #### CK, FT4, TSH, LD6, HBA1C, LACPYR, AAQTPL, GADCAB, CARNPL, PLTHY ####[facility] [address] [place], [place] [phone]#### CASRFX , LG1RFX, PARNEO #### [facility] [place], [place] [phone] Serine 59 58-181 um/L Normal 07-31-2017 [facility] ([id number]) Comment: Performed By: #### CK, FT4, TSH, LD6, HBA1C, LACPYR, AAQTPL, GADCAB, CARNPL, PLTHY ####[facility] [address], [place] [phone]#### CASRFX , LG1RFX, PARNEO #### [facility] [place], [place] [phone] Taurine 61 54-210 um/L Normal 07-31-2017 [facility] ([id number]) Comment: Performed By: #### CK, FT4, TSH, LD6, HBA1C, LACPYR, AAQTPL, GADCAB, CARNPL, PLTHY ####[facility] [address], [place] [phone]#### CASRFX , LG1RFX, PARNEO #### [facility] [facility] [place], [place] [phone] Threonine 59 60-225 um/L Low 07-31-2017 [facility] ([id number]) Comment: Performed By: #### CK, FT4, TSH, LD6, HBA1C, LACPYR, AAQTPL, GADCAB, CARNPL, PLTHY ####[facility] [address], [place] [phone]#### CASRFX , LG1RFX, PARNEO #### [facility] [place], [place] [phone] Tyrosine 51 34-112 um/L Normal 07-31-2017 [facility] ([id number]) Comment: Performed By: #### CK, FT4, TSH, LD6, HBA1C, LACPYR, AAQTPL, GADCAB, CARNPL, PLTHY ####[facility] [address], [place] [phone]#### CASRFX , LG1RFX, PARNEO #### [facility] [place], [place] [phone] Valine 175 119-336 um/L Normal 07-31-2017 [facility] ([id number]) Comment: Performed By: #### CK, FT4, TSH, LD6, HBA1C, LACPYR, AAQTPL, GADCAB, CARNPL, PLTHY ####[facility] [address], [place] [phone]#### CASRFX , LG1RFX, PARNEO #### [facility] [facility] CenterKana blakeSY[place], [place] [phone] nm gastric emptying solid on 2017-07-19 [place] GASTRIC Performed at [facility] APPROVED BY: [facility] Rodolfo Mcmahan MD ([id number]) EXAMINATION: NM GASTRIC EMPTYING STUDY EXAM DATE: [...] 07-19-2017 - Ambulatory Nausea with HARVEY FAJARDO [facility] 07-20-2017 vomiting, [facility] unspecified ([id number]) 07-08-2017 Ambulatory [facility] Facility:[facility] 03-29-2020 - Patient encounter External [facility] 03-29-2020 procedure Provider 08-31-2018 Patient encounter [facility] - Facility: [facility] procedure [facility] 07-23-2018 - Patient encounter AYANA LOPEZ) [facility] 07-23-2018 procedure [facility] (0000 0) 05-23-2018 - Patient encounter [facility] 05-26-2018 procedure [facility] (0000 0) 12-31-2017 - Patient encounter MUKUL Valdivia [facility] 12-31-2017 procedure [facility] (0000 0) 12-31-2017 - Patient encounter MUKUL Valdivia [facility] 12-31-2017 procedure [facility] (0000 0) 12-31-2017 - Patient encounter MUKUL Valdivia [facility] 01-01-2018 procedure [facility] (0000 0) 12-18-2017 - Patient encounter MUKUL Valdivia [facility] 12-18-2017 procedure YOU JOHNSON [facility] (0000 0) [facility] 10-22-2017 - Patient [facility] 10-22-2017 procedure MUKUL [facility] (0 0000) 10-11-2017 - Patient encounter [facility] 10-11-2017 procedure [facility] (0000 0) 07-31-2017 - [facility] 08-08-2017 procedure HARVEY FAJARDO [facility] (0000 0) BUCKY STUBBS MUKUL Banuelos [facility] 03-29-2020 Results Only External External-NonCCF Provider Procedures Procedure Name Date Provider Location EXTERNAL IMAGING 03-29-2020 External Provider [facility] ([id number]) Mammography 12-31-2017 [facility] ([id number]) Plan of Treatment Plan Description Date Location INFLUENZA (#1) INFLUENZA (#1) 2020 [facility] ([id number]) ADVANCE DIRECTIVE ADVANCE DIRECTIVE 2019 [facility] DISCUSSION DISCUSSION (18907) BONE DENSITY BONE DENSITY 2019 [facility] ([id number]) PNEUMOVAX AGE 65 AND OVER PNEUMOVAX AGE 65 AND OVER 2019 [facility] WITH 5YR LOOKBACK (#1) WITH 5YR LOOKBACK (#1) (1 1939) MAMMOGRAM MAMMOGRAM 12-31-2018 [facility] ([id number]) COLORECTAL CANCER COLORECTAL CANCER 06-19-2018 [facility] SCREENING,SEE MODIFIER SCREENING,SEE MODIFIER (8 1464) HBA1C HBA1C 10-29-2017 [facility] (13075) LDL CHOLESTEROL LDL CHOLESTEROL 11-12-2015 [facility] (34717) SHINGRIX VACCINE (1 of 2) SHINGRIX VACCINE (1 of 2) 2004 [facility] (96748) DTAP,TDAP,TD (1 - Tdap) DTAP,TDAP,TD (1 - Tdap) 1973 [facility] (77512) ANNUAL PCP TEAM CHRONIC ANNUAL PCP TEAM CHRONIC 1972 [facility] DISEASE VISIT DISEASE VISIT (14087) HEPATITIS C SCREENING HEPATITIS C SCREENING [address] [facility] (66375) HIV SCREENING HIV SCREENING 1972 [facility] (10309) DIABETIC FOOT EXAM DIABETIC FOOT EXAM 1964 [facility] (77759) URINE ALBUMIN:CREATININE URINE ALBUMIN:CREATININE 1964 [facility] RATIO RATIO (20540) DILATED RETINAL EXAM DILATED RETINAL EXAM 1964 [facility] ([id number]) Payers Payer Name Policy Number Location [employer] [id number] [facility] (89328) [employer] [id number] [facility] ([id number]) The following information is from the original human readable contentNo Payer Records FoundNo Payer Records FoundNo Payer Records FoundNo Payer Records FoundNo Payer Records FoundNo Payer Records FoundNo Payer Records Found Social History Type Social History Description Date Locat ion Tobacco smoking status Never smoker 07-23-2018 [facility] (86843) NHIS Tobacco use and exposure Never used 07-23-2018 [facility] (58314) Alcohol intake Current non-drinker of 07-23-2018 [facility] (80761) alcohol (finding) Sex Assigned At Not on file [facility] (38676) The following information is from the original [...] BE BASED ON THE PRIMARY CLINICAL RECORDS. [facility] provides no warranty or guarantee of the accuracy or completeness of information in this document. UNRECOGNIZED CONTENT PROVIDED BELOW FOR UNRECOGNIZED SECTION INFORMATION SOURCE DATE CREATED AUTHOR AUTHOR'S ORGANIZATIO N 02/11/2018 [facility] DATE CREATED AUTHOR AUTHOR'S ORGANIZATIO N 02/11/2018 [facility] DATE CREATED AUTHOR AUTHOR'S ORGANIZATIO N 07/29/2018 [facility] DATE CREATED AUTHOR AUTHOR'S ORGANIZATIO N 09/03/2018 [facility] DATE CREATED AUTHOR AUTHOR'S ORGANIZATIO N 07/29/2020 [facility] Found ation ([place]) UNRECOGNIZED CONTENT PROVIDED BELOW FOR UNRECOGNIZED SECTION Source Comments In the event this information is protected by the Federal Confidentiality of Alcohol and Drug Abuse Patient Records regulations: The Federal rules restrict any use of the information to criminally investigate or prosecute any alcohol or drug abuse patient.[facility]
== END 2020-07-03 16:00 | disposition home or self-care (01) ==
PROVIDERS: Emergency Provider Emergency Medicine; PCP Family Medicine
DX: R11.2 Nausea with vomiting, unspecified (principal); I10 Essential (primary) hypertension; M06.9 Rheumatoid arthritis, unspecified; E11.43 Type 2 diabetes mellitus with diabetic autonomic (poly)neuropathy; K31.84 Gastroparesis; E11.42 Type 2 diabetes mellitus with diabetic polyneuropathy; E78.5 Hyperlipidemia, unspecified; I25.2 Old myocardial infarction; I48.0 Paroxysmal atrial fibrillation; K21.9 Gastro-esophageal reflux disease without esophagitis; M79.7 Fibromyalgia; Z90.49 Acquired absence of other specified parts of digestive tract; Z79.4 Long term (current) use of insulin; Z79.82 Long term (current) use of aspirin; Z79.899 Other long term (current) drug therapy
CPT/HCPCS: 80048; 96361; 96374; 99283; J7030; A4216

== ENCOUNTER 2020-07-15 10:19 | Emergency (ER) | payer MEDICARE, MEDICAID, SELFPAY ==
[2020-07-15 10:20] VITALS: BP 179/97; PULSE 62; RESP 18; TEMP 36.3; O2SAT 96; BMI 48.4
--- NOTE | 2020-07-15 10:41 | ED.VIS.GEN ---
History of Present Illness Informant: Patient Onset: Today Narrative: 64-year-old female with past medical history of hypertension, hyperlipidemia, insulin-dependent type 2 diabetes, CAD presents with complaints of nausea and vomiting. She states she woke up this morning and was nauseous and has vomited twice. No blood. Denies fevers, chills, chest pain, shortness of breath, cough, abdominal pain, diarrhea, or urinary symptoms. She did not check her blood sugars this morning. <Kimmie Mueller - Last Filed: 07/15/20 14:00> <DongJose Alberto - Last Filed: 07/15/20 14:24> Chief Complaint: Nausea/Vomiting Past Medical History Past Medical History: - - Hypertension, hyperlipidemia, type 2 diabetes, CAD Surgical History: appendectomy, cholecystectomy, - - Arthroscopic knee surgery. Smoking Status: Never smoker - Family History Paternal Family History: Family History (Last Updated 04/14/20 @ 09:51 by Leandra Gunn) Mother Myocardial infarction Asthma Diabetes Father Congestive heart failure Other Heart disease Family History: Reports: Heart Disease, - - Bone cancer Maternal Family History: Family History (Last Updated 04/14/20 @ 09:51 by Leandra Gunn) Mother Myocardial infarction Asthma Diabetes Father Congestive heart failure Other Heart disease Family History: Reports: COPD, Diabetes, Heart Disease, - - Smoker <Kimmie Mueller - Last Filed: 07/15/20 14:00> - Family History Paternal Family History: Family History (Last Updated 04/14/20 @ 09:51 by Leandra Gunn) Mother Myocardial infarction Asthma Diabetes Father Congestive heart failure Other Heart disease Maternal Family History: Family History (Last Updated 04/14/20 @ 09:51 by Leandra Gunn) Mother Myocardial infarction Asthma Diabetes Father Congestive heart failure Other Heart disease <Umana,Jose Alberto - Last Filed: 07/15/20 14:24> - Allergies and Home Meds Allergies/Adverse Reactions: Allergies ciprofloxacin [From Cipro] Allergy (Verified 05/30/20 10:45) short of breath cyclobenzaprine Allergy (Verified 05/30/20 10:45) rash levofloxacin [From Levaquin] Allergy (Verified 05/30/20 10:45) PT UNSURE OF REACTION metformin Allergy (Verified 05/30/20 10:45) other sulfamethoxazole Allergy (Verified 05/30/20 10:45) itch topiramate Allergy (Verified 05/30/20 10:45) PT UNSURE OF REACTION trimethoprim Allergy (Verified 05/30/20 10:45) itch valacyclovir [From Valtrex] Allergy (Verified 05/30/20 10:45) other ketorolac [From Toradol] Adverse Reaction (Verified 05/30/20 10:45) Other Primary Care Physician: Devan Parks MD [Primary Care Provider] - Review of Systems General: Denies: Chills, Fever, Sweats Eyes: Denies: Visual changes - bilaterally, Diplopia ENT: Denies: Rhinorrhea, Sore throat Cardiovascular: Denies: Chest pain, Palpitations Respiratory: Denies: Dyspnea, Cough, Dyspnea on exertion Gastrointestinal: Reports: Nausea, Vomiting. Denies: Abdominal pain, Diarrhea, Constipation, Melena, Hematochezia Genitourinary: Denies: Dysuria, Hematuria, Frequency Musculoskeletal: Denies: Back pain, Extremity Pain Skin: Denies: Rash, Wounds Neurological: Denies: Headache, Weakness, Numbness <Kimmie Mueller - Last Filed: 07/15/20 14:00> Physical Exam Vital Signs/Narrative: Vital Signs Temp Pulse Resp BP Pulse Ox 07/15/20 10:20 97.4 F L 62 18 179/97 H 96 General: Well nourished, Well developed, No Acute Distress Head: Normocephalic, Atraumatic Eyes: Perrl, EOMI ENT: Moist mucous membranes, No rhinorrhea Neck: Supple, Nontender Cardiovascular: Regular rate, Regular rhythm, No murmurs Respiratory: No distress, CTA bilaterally, Chest nontender Abdomen: Soft, Nontender, Nondistended, Normal bowel sounds Back: Nontender, Normal Inspection Extremities: Nontender, No edema Skin: Normal color, No rash Neurological: Alert, Oriented x3, Cranial nerves II-XII grossly intact Psychological: Normal affect, Normal Mood <Kimmie Mueller - Last Filed: 07/15/20 14:00> Vital Signs/Narrative: Vital Signs Temp Pulse Resp BP Pulse Ox 07/15/20 10:20 97.4 F L 62 18 179/97 H 96 <DongJose Alberto - Last Filed: 07/15/20 14:24> Diagnostic/Tx/Re-eval Laboratory Data 07/15/20 07/15/20 07/15/20 11:43 11:45 11:50 WBC 12.5 H RBC 4.61 Hgb 13.0 Hct 40.9 MCV 88.7 MCH 28.2 MCHC 31.8 L RDW Std Deviation 45.4 H RDW Coeff of Be 14.1 Plt Count 287 MPV 9.6 Immature Gran % (Auto) 0.600 Neut % (Auto) 72.5 H Lymph % (Auto) 14.[address] [facility] % (Auto) 7.7 Eos % (Auto) 4.2 Baso % (Auto) 0.7 Absolute Neuts (auto) 9.1 H Absolute Lymphs (auto) 1.79 Nucleated RBC % 0 Sodium Potassium Chloride Carbon Dioxide Anion Gap BUN Creatinine Estim Creat Clear Calc Est GFR (MDRD) Af Amer Est GFR (MDRD) Non-Af BUN/Creatinine Ratio Glucose Calcium Total Bilirubin AST ALT Alkaline Phosphatase Total Protein Albumin Globulin Albumin/Globulin Ratio Urine Color Straw Urine Clarity Clear Urine pH 6.0 Ur Specific [place] 1.010 Urine Protein Negative Urine Glucose (UA) Normal Urine Ketones Negative Urine Occult Blood 10 H Urine Nitrite Negative Urine Bilirubin Negative Urine Urobilinogen Normal Ur Leukocyte Esterase 25 H Urine RBC 0 SEEN Urine WBC 0-5 SEEN Ur Squamous Epith Cells 0-5 SEEN Urine Bacteria 1+ Urine Mucus 0 SEEN POC Glucose 121 H 07/15/20 11:50 WBC RBC Hgb Hct MCV MCH MCHC RDW Std Deviation RDW Coeff of Be Plt Count MPV Immature Gran % (Auto) Neut % (Auto) Lymph % (Auto) [facility] % (Auto) Eos % (Auto) Baso % (Auto) Absolute Neuts (auto) Absolute Lymphs (auto) Nucleated RBC % Sodium 142 Potassium 4.0 Chloride 107 Carbon Dioxide 32.0 Anion Gap 3 L BUN 14 Creatinine 1.10 H Estim Creat Clear Calc 47.73 Est GFR (MDRD) Af Amer 64 Est GFR (MDRD) Non-Af 53 L BUN/Creatinine Ratio 12.7 Glucose 108 H Calcium 9.1 Total Bilirubin 0.70 AST 23 ALT 28 Alkaline Phosphatase 154 H Total Protein 8.1 Albumin 3.3 Globulin 4.8 H Albumin/Globulin Ratio 0.7 L Urine Color Urine Clarity Urine pH Ur Specific [place] Urine Protein Urine Glucose (UA) Urine Ketones Urine Occult Blood Urine Nitrite Urine Bilirubin Urine Urobilinogen Ur Leukocyte Esterase Urine RBC Urine WBC Ur Squamous Epith Cells Urine Bacteria Urine Mucus POC Glucose - Medical Decision Making Patient presented with nausea and vomiting. She appears well nontoxic. Vital signs within normal limits. Abdomen is soft and nontender. Labs show nonspecific leukocytosis, normal electrolytes, creatinine of 1.1. Urinalysis negative for infection. Patient was treated with IV Zofran and Phenergan and reports improvement. Repeat abdominal exam at 1300 is soft and nontender. She has had no vomiting in the ED. At this time she is stable for outpatient management of her nausea. On reexamination she provided further history stating she has Zofran, Phenergan, and Haldol at home as this is a chronic issue which occurs 3 to 4 days a week. Discussed signs and symptoms that would warrant return to the ED. She was hypertensive on discharge and advised to take her home BP meds she missed this morning. She was discharged home in stable condition. <Kimmie Mueller - Last Filed: 07/15/20 14:00> - Medical Decision Making An independent history and physical was performed. Patient reports chronic nausea and vomiting. Nausea vomiting is worse. She states she has Zofran, promethazine and Haldol that she takes for the chronic nausea and vomiting. Reports no benefit and reason she presents. She denies fever, chills or night sweats. She denies dysuria, frequency, urgency or hematuria. She denies diarrhea. She denies rash. Patient vital signs are noted. She is morbidly obese. Mucosa slightly dry. HEENT exam is otherwise unremarkable. Lungs clear to auscultation. Heart is regular without murmur, gallop or rub. Abdomen soft nontender. Blood work was obtained. Patient was treated with IV Zofran. She reports improvement. She has not vomited for the past 2 to 3 hours. <Jose Alberto Umana - Last Filed: 07/15/20 14:24> ED Disposition <Kimmie Mueller - Last Filed: 07/15/20 14:00> <Jose Alberto Umana - Last Filed: 07/15/20 14:24> - Plan for ED Patient: Disposition: Home or Assisted Living Diagnosis: Nausea and vomiting Instructions: ED Diet for Vomiting or Diarrhea Adult Referrals: Devan Parks MD [Primary Care Provider] -
[2020-07-15] MEDS: Ondansetron 4 MG/2 ML Vial IV (11:52)
[2020-07-15 11:56] LABS: Bedside Glucose 121 mg/dL (70-110)
[2020-07-15 12:00] LABS: Mucous, Urine 0 SEEN /hpf (<or=2+); Red Blood Cells-Urine 0 SEEN /hpf (0-5)
[2020-07-15 12:06] LABS: Absolute Lymphocyte Count 1.79 X10^3/uL (0.83-4.51); Absolute Neutrophil Count 9.1 X10^3/uL (2.0-7.7); Basophil# 0.09 X10^3/uL; Basophil% 0.7 % (0-1); Eosinophil# 0.52 X10^3/uL; Eosinophils% 4.2 % (0-5); Hematocrit 40.9 % (37-47); Lymphocyte # 1.79 X10^3/ul (4.0); Lymphocyte % 14.3 % (19-41); Mean Corp Hgb Conc 31.8 g/dL (32-36); Mean Corpuscular Hgb 28.2 pg (27.0-32.0); Mean Corpuscular Volume 88.7 fL (81-99); Mean Platelet Vol. 9.6 fl (6.2-12.0); Monocyte# 0.96 X10^3/uL; Monocyte% 7.7 % (0-10); NRBC Flagged by Analyzer 0 % (0-5); Neutrophil # 9.08 X10^3/uL (2.7-7.7); Neutrophil % 72.5 % (47-70); Platelet Count 287 K/mm3 (150-450); RBC Distribution Width CV 14.1 % (11.6-14.6); RBC Distribution Width SD 45.4 fl (35.1-43.9); Red Blood Count 4.61 M/mm3 (4.2-5.4); White Blood Count 12.5 K/mm3 (4.4-11.0)
[2020-07-15 12:11] LABS: Color, Urine Straw (Yellow); Glucose, Dipstick Normal (Normal); Ketone-Dipstick Negative (Negative); Leukocyte Esterase-Dipstick 25 /ul (Negative); Nitrite-Dipstick Negative (Negative); Occult Blood-Urine 10 /ul (Negative); Protein-Dipstick Negative (Negative); Urine Bilirubin Dipstick Negative (Negative); Urine Clarity Clear (Clear); Urine Urobilinogen Normal (Normal)
[2020-07-15 12:21] LABS: ALB/GLOB Ratio 0.7 RATIO (0.9-2.4); AST(SGOT) 23 U/L (15-37); Alanine Aminotransfer ALT/SGPT 28 U/L (13-56); Albumin, Serum 3.3 g/dL (3.2-5.0); Alkaline Phosphatase 154 U/L (45-117); Anion Gap 3 (5-15); BUN 14 mg/dL (7-18); BUN/Creat Ratio 12.7 RATIO (10-20); Calcium,Total 9.1 mg/dL (8.5-10.1); Chloride 107 mmol/L (98-107); EST Glomerular Filtration Rate 53 mL/min (>60); Est Glom Filt Rate - Afr Amer 64 mL/min (>60); Estimated Creatinine Clearance 47.73 ml/min; Globulin 4.8 g/dL (2.2-4.2); Glucose 108 mg/dL (74-106); Protein, Total 8.1 g/dL (6.4-8.2); Sodium Level 142 mmol/L (136-145)
[2020-07-15 12:31] LABS: Bacteria 1+ /hpf (None Seen); Squamous Epithelial Cells - UA 0-5 SEEN /hpf (5-10); White Blood Cells 0-5 SEEN /hpf (0-5)
[2020-07-15] MEDS: proMETHazine 25 MG/ML Syringe 6.25 MG IV (13:44)
[2020-07-15 13:48] VITALS: BP 181/69; PULSE 70; RESP 16; O2SAT 95
== END 2020-07-15 14:18 | disposition home or self-care (01) ==
PROVIDERS: Emergency Provider Physician Assistant; PCP Family Medicine
DX: R11.2 Nausea with vomiting, unspecified (principal); I10 Essential (primary) hypertension; E78.5 Hyperlipidemia, unspecified; E11.9 Type 2 diabetes mellitus without complications; I25.10 Atherosclerotic heart disease of native coronary artery without angina pectoris; Z79.4 Long term (current) use of insulin; Z90.49 Acquired absence of other specified parts of digestive tract; Z79.82 Long term (current) use of aspirin; Z79.899 Other long term (current) drug therapy
CPT/HCPCS: 80053; 81001; 82962; 85025; 96374; 96375; 99283; A4216; J2405

== ENCOUNTER 2020-08-29 20:22 | Observation (INO) | payer MEDICARE, MEDICAID, SELFPAY ==
[2020-08-29 20:23] VITALS: BP 168/103; PULSE 76; RESP 22; TEMP 36.1; O2SAT 96; BMI 48.4
[2020-08-29 20:29] VITALS: O2SAT 96
--- NOTE | 2020-08-29 20:32 | EKG12_ITS ---
Test Reason : DYSRHYTHMIA Blood Pressure : / mmHG Vent. Rate : 070 BPM Atrial Rate : 070 BPM P-R Int : 000 ms QRS Dur : 094 ms QT Int : 484 ms P-R-T Axes : 000 -30 053 degrees QTc Int : 522 ms Normal sinus rhythm Left axis deviation Prolonged QT Abnormal ECG Confirmed by JOSE MANUEL CURRY, SHAHIDA ([id number]), newspaper copy editor VIDAL MCDERMOTT ([id number]) on 08/31/2020 8:22:53 AM Referred By: SP Confirmed By:SHAHIDA RICHARD MD
--- NOTE | 2020-08-29 20:34 | ED.DCSUM_ITS ---
History of Present Illness Chief Complaint: Shortness of Breath Informant: Patient Onset: Today, Hours Context: Sudden Onset Timing: Continuous Quality: Dyspnea Location: Respiratory Current Severity: Moderate Maximum Severity: Severe Worsened by: Movement/activity Relieved by: Nothing Associated Symptoms: Nothing Narrative: Patient is an elderly woman with history of hypertension, congestive heart failure, type 2 diabetes requiring insulin who presents with abrupt onset of shortness of breath that started 1 hours ago. She denies fever, chills night sweats. She denies rhinorrhea, congestion postnasal drainage. She denies loss of taste or smell. She denies ear pain, drainage from ears or ringing in ears. She denies sore throat. She denies change in voice. She denies cough. She denies history of PE or DVT. She denies nausea, vomiting diarrhea. She denies skin lesions other than wound plantar surface right great toe. She also has wound second and third right toe plantar surface. Patient was unaware that her right leg is significantly swollen compared to the left. She is on no anticoagulant. Prior similar symptoms: No Recent Illness/Hospitalization: No - Past Medical History (1) Hammer toe of left foot Status: Acute (2) Ulcer of right foot Status: Acute (3) Benign essential HTN Status: Chronic (4) Chronic pain syndrome Status: Chronic (5) Diabetic gastroparesis Status: Chronic (6) Fibromyalgia Status: Chronic (7) GERD (gastroesophageal reflux disease) Status: Chronic (8) HLD (hyperlipidemia) Status: Chronic (9) Iron deficiency anemia Status: Chronic (10) Morbid obesity with BMI of 40.0-44.9, adult Status: Chronic (11) NSTEMI (non-ST elevated myocardial infarction) Status: Chronic (12) Paroxysmal atrial fibrillation Status: Chronic (13) Rheumatoid arthritis Status: Chronic (14) Seizure disorder Status: Chronic (15) Takotsubo cardiomyopathy Status: Chronic (16) Type 2 diabetes mellitus with diabetic polyneuropathy Status: Chronic Past Medical History - Allergies and Home Meds Allergies/Adverse Reactions: Allergies ciprofloxacin [From Cipro] Allergy (Verified 08/29/20 20:23) short of breath cyclobenzaprine Allergy (Verified 08/29/20 20:23) rash levofloxacin [From Levaquin] Allergy (Verified 08/29/20 20:23) PT UNSURE OF REACTION metformin Allergy (Verified 01/11/21 20:23) other sulfamethoxazole Allergy (Verified 08/29/20 20:23) itch topiramate Allergy (Verified 08/29/20 20:23) PT UNSURE OF REACTION trimethoprim Allergy (Verified 08/29/20 20:23) itch valacyclovir [From Valtrex] Allergy (Verified 08/29/20 20:23) other ketorolac [From Toradol] Adverse Reaction (Verified 08/29/20 20:23) Other Primary Care Physician: Devan Parks MD [Primary Care Provider] - Prior records reviewed: Yes Surgical History: appendectomy, cholecystectomy, - - Arthroscopic knee surgery. Lives: Alone Smoking Status: Never smoker Alcohol: None Drugs: None - Family History Paternal Family History: Family History (Last Updated 04/14/20 @ 09:51 by Leandra Gunn) Mother Myocardial infarction Asthma Diabetes Father Congestive heart failure Other Heart disease Family History: Reports: Heart Disease, - - Bone cancer Maternal Family History: Family History (Last Updated 04/14/20 @ 09:51 by Leandra Gunn) Mother Myocardial infarction Asthma Diabetes Father Congestive heart failure Other Heart disease Family History: Reports: COPD, Diabetes, Heart Disease, - - Smoker Review of Systems General: Denies: Chills, Fever, Malaise, Subjective, Sweats Eyes: Denies: Visual changes - bilaterally, Blurred Vision - bilaterally ENT: Denies: Bilateral ear pain, Rhinorrhea, Sore throat Cardiovascular: Denies: Chest pain, Palpitations Respiratory: Reports: Dyspnea, Dyspnea on exertion. Denies: Cough, Sputum, Orthopnea, Paroxysmal nocturnal dyspnea Gastrointestinal: Denies: Abdominal pain, Nausea, Vomiting, Diarrhea, Melena, Hematochezia Genitourinary: Denies: Dysuria, Hematuria, Frequency Musculoskeletal: Denies: Myalgias, Arthralgias, Neck pain, Back pain, Extremity Pain Skin: Reports: Wounds - Undersurface multiple right toes. Denies: Rash Neurological: Reports: Parasthesia. Denies: Headache, Weakness Psych: Reports: Depression Endocrine: Denies: Polyuria, Polydipsia Hematologic: Denies: Easy bruising, Easy bleeding Physical Exam Vital Signs/Narrative: Vital Signs Temp Pulse Resp BP Pulse Ox 08/29/20 20:23 97.0 F L 76 22 H 168/103 H 96 Inital Vital Signs reviewed: Yes General: Well nourished, Well developed, Obese, Acute Distress - And is tachypneic. Minimal movement causes her to breathe very rapidly. Head: Normocephalic, Atraumatic Eyes: Perrl, EOMI. Negative for: Pale conjunctiva, Scleral icterus ENT: No rhinorrhea, TM's clear, Dry mucous membranes Neck: Supple, Nontender, No lymphadenopathy, No JVD Cardiovascular: Regular rate, Regular rhythm, No murmurs, Normal S1, Normal S2 Respiratory: CTA bilaterally, Chest nontender. Negative for: No distress Abdomen: Soft, Nontender, Nondistended, Normal bowel sounds, No masses Rectal: Deferred Back: Nontender, Normal Inspection Extremities: Tenderness - Right great, second and third toe with dry gangrene dorsum of the right second and third toe., Edema - Heart edema right lower extremity compared to left.. Negative for: Nontender, No edema Skin: Pallor, - - Wounds plantar surface of the great, second and third toes on the right Neurological: Alert, Oriented x3, Cranial nerves II-XII grossly intact, Normal Strength. Negative for: Normal Sensation - Sensation feet due to neuropathy Psychological: Depressed Diagnostic/Tx/Re-eval Chest X-Ray - ED: 1 View, Read by ED Physician, Normal, Heart, Bony Structures, No Acute Disease, Chronic Changes, - - Inspiration limited. 8 ribs noted. Film is rotated. Patient is rotated and not upright. Difficult to interpret. There is no evidence of pneumothorax or effusion. Atelectasis due to poor inspiration 08/29/20 20:52 Chest 1 View (Portable) [RAD] Stat Laboratory Results 08/29/20 08/29/20 08/29/20 20:30 20:35 20:35 WBC 12.9 H RBC 4.69 Hgb 13.1 Hct 40.3 MCV 85.9 MCH 27.9 MCHC 32.5 RDW Std Deviation 43.5 RDW Coeff of Be 14.1 Plt Count 270 MPV 9.6 Immature Gran % (Auto) 0.500 Neut % (Auto) 69.1 Lymph % (Auto) 17.2 L [place] % (Auto) 7.9 Eos % (Auto) 4.6 Baso % (Auto) 0.7 Absolute Neuts (auto) 8.9 H Absolute Lymphs (auto) 2.23 Nucleated RBC % 0 Sodium 142 Potassium 3.7 Chloride 109 H Carbon Dioxide 28.0 Anion Gap 5 BUN 13 Creatinine 1.05 H Estim Creat Clear Calc 50.00 Est GFR (MDRD) Af Amer 67 Est GFR (MDRD) Non-Af 56 L BUN/Creatinine Ratio 12.4 Glucose 57 L Calcium 9.2 Troponin I < 0.015 POC Glucose 60 L 08/29/20 20:52 WBC RBC Hgb Hct MCV MCH MCHC RDW Std Deviation RDW Coeff of Be Plt Count MPV Immature Gran % (Auto) Neut % (Auto) Lymph % (Auto) [place] % (Auto) Eos % (Auto) Baso % (Auto) Absolute Neuts (auto) Absolute Lymphs (auto) Nucleated RBC % Sodium Potassium Chloride Carbon Dioxide Anion Gap BUN Creatinine Estim Creat Clear Calc Est GFR (MDRD) Af Amer Est GFR (MDRD) Non-Af BUN/Creatinine Ratio Glucose Calcium Troponin I POC Glucose 55 L US/Venous Duplex Imag/Limited/Uni IMPRESSION: Normal venous Doppler ultrasound of the lower extremity. Electronically Signed: Ray Joy MD at 21:43 EST , Service support , The CTA was reviewed by me. There is no obvious infiltrate or pulmonary embolus. Awaiting formal read by radiologist. Because of her recurrent hypoglycemia will treat with octreotide CT/CTA Chest W/WO Contrast IMPRESSION: Minor chronic interstitial changes and ASHD.. No acute abnormalities. No evidence for aortic aneurysm periaortic leak or dissection. No evidence for pulmonary embolus Electronically Signed: Ray Joy MD at 22:17 EST , Service support , - EKG Initial EKG Interpretation: Sinus Rhythm - Sinus rhythm with a ventricular rate of 70. SD interval is approximately 160 ms. QRS duration 94 ms. QT duration 484 ms with a QTC of 522 ms, which is prolonged. [place] is to the left. There is no acute ischemic changes noted. - Medical Decision Making Abrupt onset of shortness of breath and unilateral swelling need to evaluate for PE/DVT. Chest x-ray is obtained to assess for pneumonia and pneumothorax. Blood work was obtained to assess blood sugar since she reported low blood sugar at home. She states she took 2 sugar pills prior to arrival. Blood sugar in the department is 60. Will assess renal function. Will evaluate for anemia since she appears pale. EKG and troponin to evaluate for cardiac ischemia. Will also assess for Covid. Since the venous duplex study does not reveal DVT will obtain a CTA to evaluate for pulmonary embolus or other pathology since the chest x-ray is of limited value. Patient was placed on a D5 half-normal saline drip because of recurrent hypoglycemia. She is on oral agents. Blood sugar is 51. This is after D5 half-normal and oral glucose. Since patient will need every hour blood sugars she will need admission to PCU stepdown versus ICU. - Critical Care Time Critical care time (excluding procedures): 30-74 minutes - Critical care time 32 minutes which included time for history, physical, review of prior records, documentation, interpretation of lab results and initiation of treatment., Discussing w/Patient &/or Family/[employer] Team Member, Discussing w/Consultants, Arranging Admission or Transfer ED Disposition - Plan for ED Patient: Disposition: [facility] Diagnosis: Hypoglycemia associated with type 2 diabetes mellitus, Dyspnea, Diabetic ulcer of toe Referrals: Devan Parks MD [Primary Care Provider] -
[2020-08-29 20:40] LABS: Bedside Glucose 60 mg/dL (70-110)
--- NOTE | 2020-08-29 20:41 | US_ITS ---
STUDY: VENOUS DOPPLER ULTRASOUND - RIGHT LOWER EXTREMITY REASON FOR EXAM: Female, 64 years old. SHORTNESS OF BREATH TECHNIQUE: Ultrasound evaluation of the deep vein system to include villagomez-scale imaging and compression was performed. Villagomez-scale imaging and Doppler sonographic evaluation, including duplex spectral analysis and qualitative color flow sonography, was performed. COMPARISON: None. FINDINGS: Common Femoral Vein: Normal compression, spontaneity and augmentation. Normal color Doppler. Common Femoral Vein/Greater Saphenous Junction: Normal compression, spontaneity and augmentation. Normal color Doppler. Deep Femoral Vein: Normal compression, spontaneity and augmentation. Normal color Doppler. Femoral Proximal: Normal compression, spontaneity and augmentation. Normal color Doppler. Femoral Middle: Normal compression, spontaneity and augmentation. Normal color Doppler. Femoral Distal: Normal compression, spontaneity and augmentation. Normal color Doppler. Popliteal Vein: Normal compression, spontaneity and augmentation. Normal color Doppler. Posterior Tibial Vein: Normal compression, spontaneity and augmentation. Normal color Doppler. Peroneal Vein: Normal compression, spontaneity and augmentation. Normal color Doppler. US/Venous Duplex Imag/Limited/Uni IMPRESSION: Normal venous Doppler ultrasound of the lower extremity. Electronically Signed: Ray Joy MD at 21:43 EST , Service support ,
[2020-08-29 20:42] VITALS: BP 208/86; PULSE 70; RESP 24; O2SAT 97
[2020-08-29 20:51] LABS: Absolute Lymphocyte Count 2.23 X10^3/uL (0.83-4.51); Absolute Neutrophil Count 8.9 X10^3/uL (2.0-7.7); Basophil# 0.09 X10^3/uL; Basophil% 0.7 % (0-1); Eosinophils% 4.6 % (0-5); Hematocrit 40.3 % (37-47); Hemoglobin 13.1 g/dL (12.0-15.0); Lymphocyte # 2.23 X10^3/ul (4.0); Lymphocyte % 17.2 % (19-41); Mean Corp Hgb Conc 32.5 g/dL (32-36); Mean Corpuscular Hgb 27.9 pg (27.0-32.0); Mean Corpuscular Volume 85.9 fL (81-99); Mean Platelet Vol. 9.6 fl (6.2-12.0); Monocyte# 1.02 X10^3/uL; Monocyte% 7.9 % (0-10); NRBC Flagged by Analyzer 0 % (0-5); Neutrophil # 8.93 X10^3/uL (2.7-7.7); Neutrophil % 69.1 % (47-70); Platelet Count 270 K/mm3 (150-450); RBC Distribution Width CV 14.1 % (11.6-14.6); RBC Distribution Width SD 43.5 fl (35.1-43.9); Red Blood Count 4.69 M/mm3 (4.2-5.4); White Blood Count 12.9 K/mm3 (4.4-11.0)
--- NOTE | 2020-08-29 20:52 | RAD_ITS ---
STUDY: X-RAY CHEST REASON FOR EXAM: Female, 64 years old. SOB, hypoglycemia TECHNIQUE: AP portable COMPARISON: 01/11/2020 FINDINGS: Bilateral perihilar interstitial infiltrates or pulmonary edema.. There is no demonstrated pleural abnormality. Heart is enlarged. Normal mediastinum and judith. Normal visualized pulmonary arteries. Normal visualized aortic arch and descending thoracic aorta. Dorsal spine and shoulders demonstrate degenerative change Normal visualized ribs, and clavicles. There is no demonstrated abnormality of the visualized soft tissue structures of the upper abdomen. RAD/Chest 1 View (Portable) IMPRESSION: Probable mild congestive failure. Cannot exclude coexisting inflammatory disease Electronically Signed: Ray Joy MD at 21:14 EST , Service support ,
[2020-08-29 20:56] LABS: Bedside Glucose 55 mg/dL (70-110)
[2020-08-29 21:05] LABS: Anion Gap 5 (5-15); BUN 13 mg/dL (7-18); BUN/Creat Ratio 12.4 RATIO (10-20); Calcium,Total 9.2 mg/dL (8.5-10.1); Chloride 109 mmol/L (98-107); Creatinine, Serum 1.05 mg/dL (0.55-1.02); EST Glomerular Filtration Rate 56 mL/min (>60); Est Glom Filt Rate - Afr Amer 67 mL/min (>60); Glucose 57 mg/dL (74-106); Potassium 3.7 mmol/L (3.5-5.1); Sodium Level 142 mmol/L (136-145)
[2020-08-29 21:12] LABS: BNP,B-Type NATRIURETIC PEPTIDE 134.7 pg/mL (0-100)
[2020-08-29] MEDS: Dext 5%-0.45% NS 1,000 ML 125 ML IV (21:14)
[2020-08-29 21:25] LABS: Bedside Glucose 45 mg/dL (70-110)
--- NOTE | 2020-08-29 21:27 | CT_ITS ---
STUDY: CTA CHEST REASON FOR EXAM: Female, 64 years old. SOB X 1 HOUR, HX CHF, HTN, [place], DIAB, PE IN PAST RADIATION DOSAGE (If Supplied By Facility): CTDIvol = ( 19.79 ) mGy, DLP = ( 508.98 ) mGycm TECHNIQUE: The examination was performed with the intravenous administration of IV 100mL Isovue-370. Post-processing of the angiographic images was performed, with multiplanar reformation and 3D reconstruction. Individualized dose optimization techniques were used for this CT. COMPARISON: None. FINDINGS: Normal enhancement of the main pulmonary artery and right and left pulmonary arteries. Normal enhancement of the bilateral peripheral pulmonary arteries. There is no demonstrated pulmonary embolism. Minor atherosclerotic changes of the aorta without evidence for aneurysm There is no demonstrated aortic dissection. Heart is enlarged and there is mild coronary artery calcification. Normal mediastinum. Normal hilar regions. Normal visualized trachea and bronchi. The lungs are well expanded. There is minor chronic interstitial thickening more pronounced in the lower lobes. Normal pleura. Normal chest wall structures. Dorsal spine demonstrates degenerative changes. Diffuse fatty infiltrated atrophic pancreas. CT/CTA Chest W/WO Contrast IMPRESSION: Minor chronic interstitial changes and ASHD.. No acute abnormalities. No evidence for aortic aneurysm periaortic leak or dissection. No evidence for pulmonary embolus Electronically Signed: Ray Joy MD at 22:17 EST , Service support ,
[2020-08-29 21:55] LABS: Bedside Glucose 53 mg/dL (70-110)
[2020-08-29 22:23] VITALS: BP 194/90; PULSE 72; RESP 18; O2SAT 97
[2020-08-29] MEDS: Octreotide 0.1 MG/ML ML SC (22:24)
[2020-08-29 22:26] LABS: Bedside Glucose 61 mg/dL (70-110)
[2020-08-29 22:58] VITALS: O2SAT 82; O2SAT 96
[2020-08-29 23:00] VITALS: BP 184/89; PULSE 56; RESP 17; TEMP 35.6; O2SAT 97
--- NOTE | 2020-08-29 23:03 | PCM.HP.STD ---
Problem List (1) Hypoglycemia associated with type 2 diabetes mellitus Status: Acute (2) Dyspnea Status: Acute (3) Diabetic ulcer of toe Status: Chronic (4) Candidiasis of breast Status: Chronic (5) Ulcer of right foot with fat layer exposed Status: Chronic (6) Type 2 diabetes mellitus with diabetic polyneuropathy Status: Chronic (7) Rheumatoid arthritis Status: Chronic (8) Hammer toe of right foot Status: Chronic (9) Takotsubo cardiomyopathy Status: Chronic (10) Ulcer of right foot Status: Chronic (11) Type 2 diabetes mellitus with diabetic polyneuropathy Status: Chronic (12) NSTEMI (non-ST elevated myocardial infarction) Status: Chronic (13) Fibromyalgia Status: Chronic (14) Type 2 diabetes mellitus Status: Chronic Qualifiers: Diabetes mellitus jail insulin use: with vermin exterminator use Diabetes mellitus complication status: with other specified complication Qualified Code(s): E11.69 - Type 2 diabetes mellitus with other specified complication; Z79.4 - termite treater helper (current) use of insulin (15) Diabetic gastroparesis Status: Chronic (16) GERD (gastroesophageal reflux disease) Status: Chronic Qualifiers: Esophagitis presence: esophagitis presence not specified Qualified Code(s): K21.9 - Gastro-esophageal reflux disease without esophagitis (17) Seizure disorder Status: Chronic (18) Paroxysmal atrial fibrillation Status: Chronic (19) Chronic pain syndrome Status: Chronic (20) Takotsubo cardiomyopathy Status: Chronic (21) Iron deficiency anemia Status: Chronic Qualifiers: Iron deficiency anemia type: unspecified iron deficiency Qualified Code(s): D50.9 - Iron deficiency anemia, unspecified (22) Depression Status: Chronic Qualifiers: Depression Type: unspecified Qualified Code(s): F32.9 - Major depressive disorder, single episode, unspecified (23) Morbid obesity with BMI of 40.0-44.9, adult Status: Chronic (24) HLD (hyperlipidemia) Status: Chronic Qualifiers: Hyperlipidemia type: pure hypercholesterolemia Qualified Code(s): E78.00 - Pure hypercholesterolemia, unspecified; E78.0 - Pure hypercholesterolemia (25) Benign essential HTN Status: Chronic History of Present Illness Date of Admission: 08/29/20 Chief Complaint: sob The patient is a 64 year old F with a significant history of hypertension; diabetes mellitus; restless leg syndrome and rheumatoid arthritis who presents to the emergency department with sudden onset shortness of breath that started few hours before presentation. Her shortness of breath increased with mild exertion like moving in the bed. Also patient felt like she was having hypoglycemic episode as the hair on her head was wet reminiscent to her previous episode of hypoglycemia. Her blood glucose at home was 54. She took 2 glucose tablets at home. At the emergency department patient was given ocreotide and was started on dextrose infusion. She was also given food to eat. However her blood glucose remained low. Past Medical History Past Medical History (Chronic Problems): Chronic Problems (Last Reviewed 08/30/20 @ 00:[address] Jacques Santos MD) Diabetic ulcer of toe (Chronic) Candidiasis of breast (Chronic) Ulcer of right foot with fat layer exposed (Chronic) Type 2 diabetes mellitus with diabetic polyneuropathy (Chronic) Rheumatoid arthritis (Chronic) Hammer toe of right foot (Chronic) Takotsubo cardiomyopathy (Chronic) Ulcer of right foot (Chronic) Type 2 diabetes mellitus with diabetic polyneuropathy (Chronic) NSTEMI (non-ST elevated myocardial infarction) (Chronic) Fibromyalgia (Chronic) Type 2 diabetes mellitus (Chronic) Diabetic gastroparesis (Chronic) GERD (gastroesophageal reflux disease) (Chronic) Seizure disorder (Chronic) Paroxysmal atrial fibrillation (Chronic) Chronic pain syndrome (Chronic) Takotsubo cardiomyopathy (Chronic) Iron deficiency anemia (Chronic) Depression (Chronic) Morbid obesity with BMI of 40.0-44.9, adult (Chronic) HLD (hyperlipidemia) (Chronic) Benign essential HTN (Chronic) Medical History: Medical History (Last Reviewed 08/30/20 @ 00:[address] Jacques Santos MD) Candidiasis of breast (Chronic) B37.89 Ulcer of right foot with fat layer exposed (Chronic) L97.512 Type 2 diabetes mellitus with diabetic polyneuropathy (Chronic) E11.42 Rheumatoid arthritis (Chronic) M06.9 Hammer toe of left foot (Inactive) M20.42 Hammer toe of right foot (Chronic) M20.41 Takotsubo cardiomyopathy (Chronic) I51.81 Sepsis (Inactive) A41.9 Diabetic infection of right foot (Inactive) E11.628, L08.9 UTI (urinary tract infection) (Inactive) N39.0 Ulcer of right foot (Chronic) L97.519 Toe osteomyelitis, right (Inactive) M86.9 Status post amputation 08/22/2019 Type 2 diabetes mellitus with diabetic polyneuropathy (Chronic) E11.42 NSTEMI (non-ST elevated myocardial infarction) (Chronic) I21.4 Fibromyalgia (Chronic) M79.7 Type 2 diabetes mellitus (Chronic) E11.9 Diabetic gastroparesis (Chronic) E11.43, K31.84 GERD (gastroesophageal reflux disease) (Chronic) K21.9 Seizure disorder (Chronic) G40.909 Paroxysmal atrial fibrillation (Chronic) I48.0 Chronic pain syndrome (Chronic) G89.4 Takotsubo cardiomyopathy (Chronic) I51.81 Iron deficiency anemia (Chronic) D50.9 Depression (Chronic) F32.9 Morbid obesity with BMI of 40.0-44.9, adult (Chronic) E66.01, Z68.41 HLD (hyperlipidemia) (Chronic) E78.5 Benign essential HTN (Chronic) I10 Abdominal pain R10.9 Thyroid disease E07.9 Diabetic gastroparesis E11.43, K31.84 Diverticulitis K57.92 Fibromyalgia M79.7 QIAN (obstructive sleep apnea) G47.33 Restless leg syndrome G25.81 History of CVA (cerebrovascular accident) (Inactive) Z86.73 Allergies ciprofloxacin [From Cipro] Allergy (Verified 08/29/20 20:23) short of breath cyclobenzaprine Allergy (Verified 08/29/20 20:23) rash levofloxacin [From Levaquin] Allergy (Verified 08/29/20 20:23) PT UNSURE OF REACTION metformin Allergy (Verified 08/29/20 20:23) other sulfamethoxazole Allergy (Verified 08/29/20 20:23) itch topiramate Allergy (Verified 08/29/20 20:23) PT UNSURE OF REACTION trimethoprim Allergy (Verified 08/29/20 20:23) itch valacyclovir [From Valtrex] Allergy (Verified 08/29/20 20:23) other ketorolac [From Toradol] Adverse Reaction (Verified 08/29/20 20:23) Other Home Medications: Ambulatory Orders Medication Instructions Recorded Levothyroxine Sodium 75 mcg PO DAILY 09/17/18 Hydroxychloroquine [Plaquenil] 200 mg PO BIDCM 11/30/18 allopurinol 100 mg tablet 100 mg PO QHS tab 03/30/19 Insulin Regular, Human [Humulin R 75 unit SQ BID 04/11/19 U-500 Kwikpen] Aspirin 81 mg PO DAILY 08/16/19 Ropinirole HCl 1 mg PO DAILY 08/16/19 hydrocodone 5 mg-acetaminophen 325 2 tab PO Q6H PRN 12/03/19 mg tablet carvedilol 12.5 mg tablet 12.5 mg PO BID tab 03/09/20 furosemide 40 mg tablet 40 mg PO DAILY PRN tab 03/09/20 pregabalin 225 mg capsule 225 mg PO BID cap 04/14/20 cholecalciferol (vitamin D3) 25 25 mcg PO DAILY 08/03/20 mcg (1,000 unit) capsule Ferrous Sulfate [Iron] 325 mg PO DAILY 08/29/20 Haloperidol 1 mg PO TID 08/29/20 Insulin Glargine,Hum.rec.anlog 20 units SQ DAILY 08/29/20 [Soni Gustafson] Ondansetron [Zofran] 8 mg PO Q8H PRN PRN 08/29/20 Simvastatin [Zocor] 40 mg PO QHS 08/29/20 Surgical History: Surgical History (Last Updated 04/14/20 @ 09:51 by Leandra Gunn) history left foot surgery History of cholecystectomy Z90.49 History of knee surgery Z98.890 History of left heart catheterization Onset Date: 03/09/19 Z98.890 Surgical History: appendectomy, cholecystectomy, - - Arthroscopic knee surgery. Psychiatric History: Anxiety, Depression ADMINISTRATIVE SUPPORT SPECIALIST History: No pertinent ADMINISTRATIVE SUPPORT SPECIALIST history Lives: Alone Smoking Status: Never smoker Alcohol: None Drugs: None - *Family History Paternal Family History: Family History (Last Updated 04/14/20 @ 09:51 by Leandra Gunn) Mother Myocardial infarction Asthma Diabetes Father Congestive heart failure Other Heart disease History Items: Heart Disease, - - Bone cancer Maternal Family History: Family History (Last Updated 04/14/20 @ 09:51 by Leandra Gunn) Mother Myocardial infarction Asthma Diabetes Father Congestive heart failure Other Heart disease History Items: COPD, Diabetes, Heart Disease, - - Smoker Review of Systems Constitutional: Reports: Weight Change - Reportedly about 20 pounds in the last 2 months.. Denies: Chills, Fever HEENT: Denies: Head Aches, Sinus Congestion, Sinus Drainage Cardiovascular: Reports: Orthopnea. Denies: Chest Pain, Palpitations Respiratory: Reports: Shortness of Breath. Denies: Cough, Shortness of breath at rest, Sputum production Gastrointestinal: Denies: Abdominal Pain, Nausea, Vomiting Genitourinary: Denies: Dysuria Musculoskeletal: Denies: Joint Pain, Joint Tenderness Skin: Denies: Rash, Wounds Neurological: Denies: Numbness, Tingling, Focal weakness Psychiatric: Denies: Anxiety, Depression, Homicidal Ideations, Suicidal Ideations Hematologic/ Lymphatic: Denies: Easy Bruising, Easy Bleeding VTE Information - Inpt Only VTE Present on Admission: No VTE Mechan Device Prophylaxis: None VTE Pharm Prophylaxis ordered?: Yes Patient Problems: Active and Suspected Problems (Last Reviewed 08/30/20 @ 00:[address] Jacques Santos MD) Hypoglycemia associated with type 2 diabetes mellitus (Acute) Dyspnea (Acute) - Physical Exam Vitals/I&O's: Vital Signs Temp Pulse Resp BP Pulse Ox 96.1 F L 56 L 17 184/89 H 97 08/29/20 23:00 08/29/20 23:00 08/29/20 23:00 08/29/20 23:00 08/29/20 23:00 Oxygen Flow Rate (L/min) 2 Oxygen Delivery Method Nasal Cannula Weight: 136.078 kg Body Mass Index (BMI) 48.4 Finger Stick Blood Glucose 61 General: Alert, Oriented x3, Cooperative HEENT: Atraumatic, PERRLA, EOMI, Normocephalic Neck: Supple, No JVD, Negative Carotid Bruits Lungs: Clear to auscultation, Normal air movement Cardiovascular: Regular rate, No murmurs Abdomen: Bowel Sounds Present, Soft, Non Tender Extremities: Capillary Refill Less than 3 Seconds, Edema - R leg Skin: No rashes, Ulcer/ Wound - Ulcers on the first to third toe of right leg. Musculoskeletal: No Tenderness to Palpation of Joints or Extremities Neurological: Cranial nerves II-XII grossly intact Psych/Mental Status: Normal Affect, Appropriate Microbiology Past 72 Hours 08/29/20 20:45 Mucosa - Nose SARS-CoV-2 Antigen (Rapid) - Final Laboratory Results 08/29/20 20:30: POC Glucose 60 L 08/29/20 20:35: WBC 12.9 H, RBC 4.69, Hgb 13.1, Hct 40.3, MCV 85.9, MCH 27.9, MCHC 32.5, RDW Std Deviation 43.5, RDW Coeff of Be 14.1, Plt Count 270, MPV 9.6, Immature Gran % (Auto) 0.500, Neut % (Auto) 69.1, Lymph % (Auto) 17.2 L, [place] % (Auto) 7.9, Eos % (Auto) 4.6, Baso % (Auto) 0.7, Absolute Neuts (auto) 8.9 H, Absolute Lymphs (auto) 2.23, Nucleated RBC % 0 08/29/20 20:35: Sodium 142, Potassium 3.7, Chloride 109 H, Carbon Dioxide 28.0, Anion Gap 5, BUN 13, Creatinine 1.05 H, Estim Creat Clear Calc 50.00, Est GFR (MDRD) Af Amer 67, Est GFR (MDRD) Non-Af 56 L, BUN/Creatinine Ratio 12.4, Glucose 57 L, Calcium 9.2, Troponin I < 0.015 08/29/20 20:35: B-Natriuretic Peptide 134.7 H 08/29/20 20:41: Lactic Acid 1.0 08/29/20 20:52: POC Glucose 55 L 08/29/20 21:18: POC Glucose 45 L 08/29/20 21:51: POC Glucose 53 L 08/29/20 22:19: POC Glucose 61 L Current Medications Dextrose/Sodium Chloride () 1,000 mls @ 125 mls/hr IV .Q8H FORD Last Admin: 08/29/20 21:14 Dose: 125 mls/hr Documented by: Assessment/Plan All Active Problems (Last Reviewed 08/30/20 @ 00:[address] Jacques Santos MD) Hypoglycemia associated with type 2 diabetes mellitus (Acute) Dyspnea (Acute) The patient is a 64 year old F with a significant history of hypertension; diabetes mellitus; restless leg syndrome and rheumatoid arthritis who presents emergency department with sudden onset shortness of breath; and hypoglycemia and found to have persistent hypoglycemia at the emergency department; and also with swelling of her right lower leg. Hypoglycemia On home Metformin; basal insulin and regular insulin. Hold all antidiabetic medications. Change dextrose with half-normal saline going at 125 mL/h to D10 in half-normal saline 40 mL/h because of dyspnea and history of diastolic heart failure. Discussed with ED doc to give an amp of D50. Accu-Chek every 1 hour. Admit to progressive care unit on stepdown status. Dyspnea Likely secondary to hypoglycemia and hypertensive emergency. Chest x-ray interpreted by radiologist: Probable mild congestive failure. Cannot exclude coexisting inflammatory disease. Actual chest x-ray image and previous chest x-ray was independently reviewed. I agree radiologist interpretation. However, CTA with only mild chronic interstitial changes and atherosclerotic heart disease. Echocardiogram on 02/04/2020 was reviewed. Estimated ejection fraction was 55% and there was evidence of diastolic dysfunction. Patient on home Lasix 40 mg p.o. as needed. BNP of 134.7. With patient receiving dextrose infusion will give patient Lasix 40 mg IV push x1 and then Lasix 40 mg IV twice daily. Supplement potassium. Strict intake and outputs Daily weights Cardiac diet. Hypertensive emergency Resume home blood pressure medications: Carvedilol. As needed labetalol IV ordered. Trend blood pressure and adjust blood pressure medications Leukocytosis White count of 12.9 on presentation Trend CBC. Prolonged QTc interval Avoid QTC prolongation drugs Patient is on home haloperidol that may be contributing to her prolonged QTc interval. Will continue haloperidol this time. Check magnesium level. Right leg swelling with ulcers of first to third toes of right foot Ultrasound of right leg in the emergency department was unremarkable. Kerlix roll and Basil wrap to bilateral lower extremities. Wound care consult Rheumatoid arthritis Plaquenil continued. Restless leg syndrome Requip continued Neuropathy Likely from diabetes Pregabalin continued. Chronic pain Cosmos as needed continued. Hypothyroidism Synthroid continued Hyperlipidemia Zocor continued Chronic anemia Iron supplements continued Gout Allopurinol continued DVT prophylaxis Subcutaneous Lovenox ordered. Inpatient E&M: [id number] Init Hosp L3
[2020-08-29 23:56] LABS: Bedside Glucose 43 mg/dL (70-110)
[2020-08-29] MEDS: Dextrose 50%-Water 25 GM/50 ML DISP.SYRIN IV (23:57)
[2020-08-30] VITALS (13 sets, daily range): BP systolic 112–179; BP diastolic 46–106; PULSE 47–82; RESP 18–20; TEMP 36.4–36.8; O2SAT 92–97; BMI 48.4; BMI 51.2
[2020-08-30] MEDS: 0.9% Saline Lock 10 ML Syringe IV ×2 (00:56→12:24)
[2020-08-30] MEDS: Furosemide 40 MG/4 ML Vial IV (00:56)
[2020-08-30 01:26] LABS: Thyroid Stim Hormone (TSH) 1.87 uIU/mL (0.358-3.74)
[2020-08-30] MEDS: Dextrose 10%-Water 250 ML 40 ML IV ×2 (01:35→08:42)
[2020-08-30 01:41] LABS: Bedside Glucose 120 mg/dL (70-110)
[2020-08-30 01:41] LABS: Bedside Glucose 110 mg/dL (70-110)
--- NOTE | 2020-08-30 02:24 | PCS.PANDOC ---
PANDEMIC DOCUMENTATION INITIATED: Date: 08/30/20 Time: 00:15
[2020-08-30 04:16] LABS: Bedside Glucose 102 mg/dL (70-110)
[2020-08-30 04:16] LABS: Bedside Glucose 119 mg/dL (70-110)
[2020-08-30] MEDS: HYDROcodone Bitartrate/Apap 5/325 Tablet PO ×4 (04:22→22:47)
[2020-08-30] MEDS: Levothyroxine 75 MCG Tablet PO (05:40)
[2020-08-30] MEDS: Haloperidol 1 MG Tablet PO ×3 (05:40→21:41)
[2020-08-30 06:33] LABS: Absolute Lymphocyte Count 1.85 X10^3/uL (0.83-4.51); Absolute Neutrophil Count 10.1 X10^3/uL (2.0-7.7); Basophil# 0.06 X10^3/uL; Basophil% 0.4 % (0-1); Eosinophil# 0.45 X10^3/uL; Eosinophils% 3.3 % (0-5); Hematocrit 41.5 % (37-47); Hemoglobin 13.4 g/dL (12.0-15.0); Lymphocyte # 1.85 X10^3/ul (4.0); Lymphocyte % 13.7 % (19-41); Mean Corp Hgb Conc 32.3 g/dL (32-36); Mean Corpuscular Hgb 27.9 pg (27.0-32.0); Mean Corpuscular Volume 86.3 fL (81-99); Mean Platelet Vol. 10.4 fl (6.2-12.0); Monocyte# 1.03 X10^3/uL; Monocyte% 7.6 % (0-10); NRBC Flagged by Analyzer 0 % (0-5); Neutrophil # 10.07 X10^3/uL (2.7-7.7); Neutrophil % 74.7 % (47-70); Platelet Count 293 K/mm3 (150-450); RBC Distribution Width CV 14.3 % (11.6-14.6); RBC Distribution Width SD 44.8 fl (35.1-43.9); Red Blood Count 4.81 M/mm3 (4.2-5.4); White Blood Count 13.5 K/mm3 (4.4-11.0)
[2020-08-30 06:58] LABS: Anion Gap 6 (5-15); BUN 11 mg/dL (7-18); BUN/Creat Ratio 10.7 RATIO (10-20); Calcium,Total 9.1 mg/dL (8.5-10.1); Chloride 104 mmol/L (98-107); Creatinine, Serum 1.03 mg/dL (0.55-1.02); EST Glomerular Filtration Rate 57 mL/min (>60); Est Glom Filt Rate - Afr Amer 69 mL/min (>60); Estimated Creatinine Clearance 50.98 ml/min; Glucose 88 mg/dL (74-106); Magnesium 2.4 mg/dL (1.6-2.6); Potassium 4.1 mmol/L (3.5-5.1); Sodium Level 139 mmol/L (136-145)
[2020-08-30 07:01] LABS: Bedside Glucose 119 mg/dL (70-110)
[2020-08-30] MEDS: Acetaminophen 325 MG Tablet 650 MG PO ×2 (08:48→14:44)
[2020-08-30 09:15] LABS: Bedside Glucose 141 mg/dL (70-110)
[2020-08-30] MEDS: Hydroxychloroquine 200 MG Tablet PO ×2 (09:39→16:46)
[2020-08-30] MEDS: Aspirin 81 MG TAB.CHEW PO (09:39)
[2020-08-30] MEDS: Enoxaparin 40 MG/0.4 ML Syringe SC (09:39)
[2020-08-30] MEDS: Carvedilol 12.5 MG Tablet PO ×2 (09:40→21:39)
[2020-08-30] MEDS: Pregabalin 75 MG Capsule 225 MG PO ×2 (09:42→21:41)
--- NOTE | 2020-08-30 10:16 | NURSING ---
wound photo: right great and 2nd toe
[2020-08-30 10:41] LABS: Bedside Glucose 232 mg/dL (70-110)
[2020-08-30 11:00] LABS: Bedside Glucose 41 mg/dL (70-110)
[2020-08-30 11:00] LABS: Bedside Glucose 40 mg/dL (70-110)
--- NOTE | 2020-08-30 11:17 | CASEMGMT ---
Assessment- SW completed assessment with patient at bedside. SW also confirmed addresses and phone numbers. Living situation- Patient lives alone in a 1 story home with 2 entry steps. PCP: Dr Parks Specialists: Dr Ellison-Cardiology, Dr Medley-Nephrology, Dr Masters-Endocrinology, currently [facility] clinic for wound on toe [facility]acy: [facility] DME: walker, cane, grab bars, and high rise toilet ADL's/IADL's: Patient does not use her walker or cane. She is independent with bathing, ambulating, meals, dressing, toileting, houskeeping, medications, and she drives. She has not driven lately. Her sister does help her with managing finances. Past SNF/rehab: She has been to [facility] in the past Past HH: She has had [facility] HH in the past LW: Yes and it is on file at [facility] POA: Yes and it is on file at [facility] Plan: Patient feels like things are going fine at home. She does not anticipate that she will need anything at discharge including home health. SW told her that CM and SW will continue to follow and if she changes her mind someone would be available to help set up services. Mckayla SNEED HUMAN FACTORS ADVISOR LEAD
[2020-08-30] MEDS: Ondansetron 4 MG/2 ML Vial IV (12:24)
[2020-08-30 13:15] LABS: Bedside Glucose 254 mg/dL (70-110)
--- NOTE | 2020-08-30 16:12 | PCM.PN.HOSP ---
Patient Problems: Active and Suspected Problems (Last Reviewed 08/30/20 @ 00:[address] Jacques Santos MD) Hypoglycemia associated with type 2 diabetes mellitus (Acute) Dyspnea (Acute) Subjective: Patient states she is feeling much better overall and is just about back to her normal self except she is having some nausea. Patient states that this is a chronic issue as she has gastroparesis and has Haldol, Zofran, and Phenergan at home that she takes on an as-needed basis for this. She has 2 episodes of emesis today. But nothing in the recent past. She would like to see how she does through this afternoon and into tomorrow with her continued as needed medications available. She states she is not on Reglan. Patient states that she is noted that her oxygen levels are dropping while she is sleeping. Denies ever having polysomnography. Denies history of obstructive sleep apnea. Vitals/I&O's: Vital Signs Temp Pulse Resp BP Pulse Ox 98.1 F 56 L 18 112/46 L 92 08/30/20 09:36 08/30/20 09:36 08/30/20 09:36 08/30/20 09:36 08/30/20 09:36 Oxygen Flow Rate (L/min) 2 Oxygen Delivery Method Room Air Weight: 143.7 kg Body Mass Index (BMI) 51.2 Finger Stick Blood Glucose 43 Intake and Output for Last 24 Hours 08/28/20 08/29/20 08/30/20 23:59 23:59 23:59 Intake Total 1555 / 1555 Output Total 1850 / 1850 Balance -295 / -295 General: Alert, Oriented x3, Cooperative, No apparent distress, Well developed, Well nourished, - - Obese white female, appears older than stated age HEENT: Atraumatic, PERRLA, EOMI, Normocephalic Oral: Moist Mucosa, No Gingival or Mucosal Lesions/ Ulcerations Neck: Supple, Trachea Midline Lungs: Clear to auscultation, Normal air movement, No rhonchi, No wheeze, No rales, - - Diminished secondary to body habitus Cardiovascular: Regular rate, Regular Rhythm, Normal S1, Normal S2, No murmurs, No Ectopic Activity, No rub noted, No Gallop Abdomen: Bowel Sounds Present, Soft, Non Tender, Non-Distended, Obese Extremities: No clubbing, No cyanosis, No edema, Capillary Refill Less than 3 Seconds, Peripheral Pulses Normal Skin: No rashes, Ulcer/ Wound - First and third digit of right toe Musculoskeletal: No Tenderness to Palpation of Joints or Extremities, No Muscle Wasting, Arthritic Changes Lymphatic: No Cervical, Supraclavicular, or Inguinal Adenopathy Neurological: Cranial nerves II-XII grossly intact, Neuro grossly intact, - - Peripheral neuropathy present on exam Microbiology Past 72 Hours 08/29/20 20:45 Mucosa - Nose SARS-CoV-2 Antigen (Rapid) - Final Laboratory Results 08/29/20 20:30: POC Glucose 60 L 08/29/20 20:35: WBC 12.9 H, RBC 4.69, Hgb 13.1, Hct 40.3, MCV 85.9, MCH 27.9, MCHC 32.5, RDW Std Deviation 43.5, RDW Coeff of Be 14.1, Plt Count 270, MPV 9.6, Immature Gran % (Auto) 0.500, Neut % (Auto) 69.1, Lymph % (Auto) 17.2 L, Piute % (Auto) 7.9, Eos % (Auto) 4.6, Baso % (Auto) 0.7, Absolute Neuts (auto) 8.9 H, Absolute Lymphs (auto) 2.23, Nucleated RBC % 0 08/29/20 20:35: Sodium 142, Potassium 3.7, Chloride 109 H, Carbon Dioxide 28.0, Anion Gap 5, BUN 13, Creatinine 1.05 H, Estim Creat Clear Calc 50.00, Est GFR (MDRD) Af Amer 67, Est GFR (MDRD) Non-Af 56 L, BUN/Creatinine Ratio 12.4, Glucose 57 L, Calcium 9.2, Troponin I < 0.015 08/29/20 20:35: B-Natriuretic Peptide 134.7 H 08/29/20 20:35: TSH 1.87 08/29/20 20:41: Lactic Acid 1.0 08/29/20 20:52: POC Glucose 55 L 08/29/20 21:18: POC Glucose 45 L 08/29/20 21:51: POC Glucose 53 L 08/29/20 22:19: POC Glucose 61 L 08/29/20 23:11: POC Glucose 41 L* 08/29/20 23:19: POC Glucose 40 L* 08/29/20 23:49: POC Glucose 43 L* 08/30/20 00:42: POC Glucose 110 08/30/20 01:34: POC Glucose 120 H 08/30/20 02:46: POC Glucose 119 H 08/30/20 04:09: POC Glucose 102 08/30/20 05:48: WBC 13.5 H, RBC 4.81, Hgb 13.4, Hct 41.5, MCV 86.3, MCH 27.9, MCHC 32.3, RDW Std Deviation 44.8 H, RDW Coeff of Be 14.3, Plt Count 293, MPV 10.4, Immature Gran % (Auto) 0.300, Neut % (Auto) 74.7 H, Lymph % (Auto) 13.7 L, Piute % (Auto) 7.6, Eos % (Auto) 3.3, Baso % (Auto) 0.4, Absolute Neuts (auto) 10.1 H, Absolute Lymphs (auto) 1.85, Nucleated RBC % 0 08/30/20 05:48: Sodium 139, Potassium 4.1, Chloride 104, Carbon Dioxide 29.0, Anion Gap 6, BUN 11, Creatinine 1.03 H, Estim Creat Clear Calc 50.98, Est GFR (MDRD) Af Amer 69, Est GFR (MDRD) Non-Af 57 L, BUN/Creatinine Ratio 10.7, Glucose 88, Calcium 9.1, Magnesium 2.4 08/30/20 06:50: POC Glucose 119 H 08/30/20 08:50: POC Glucose 141 H 08/30/20 10:35: POC Glucose 232 H 08/30/20 13:09: POC Glucose 254 H Current Medications Acetaminophen (Acetaminophen 325 Mg Tablet) 650 mg PO Q6H PRN PRN PRN Reason: Pain Score 1-10/Temp > 100.7 F Last Admin: 08/30/20 14:44 Dose: 650 mg Documented by: Hydrocodone Bitart/Acetaminophen (Hydrocodone Bitartrate/Apap 5/325 Tablet) 2 tablet PO Q6H PRN PRN PRN Reason: Pain 1-10 or Fever Last Admin: 08/30/20 10:32 Dose: 2 tablet Documented by: Allopurinol (Allopurinol 100 Mg Tablet) 100 mg PO QHS [facility] Aspirin (Aspirin 81 Mg Tab.Chew) [facility] Last Admin: 08/30/20 09:39 Dose: 81 mg Documented by: Atorvastatin Calcium (Atorvastatin Calcium 20 Mg Tablet) 20 mg PO QHS [facility] Calamine/Phenol (Menthol/Lanolin/Calamine/Znox 113 Gm Tube) 1 applic TOPICAL TID [facility]; Protocol Carvedilol (Carvedilol 12.5 Mg Tablet) 12.5 mg PO BID [facility] Last Admin: 08/30/20 09:40 Dose: 12.5 mg Documented by: Cholecalciferol (Cholecalciferol (Vit D3) 1,000 Unit (25mcg)) 1,000 unit PO DAILY [facility] Last Admin: 08/30/20 09:40 Dose: 1,000 unit Documented by: Enoxaparin Sodium (Enoxaparin 40 Mg/0.4 Ml Syringe) 40 mg SC DAILY [facility] Last Admin: 08/30/20 09:39 Dose: 40 mg Documented by: Ferrous Sulfate (Ferrous Sulfate 325 Mg Tablet) 325 mg PO DAILY@1200 [facility] Last Admin: 08/30/20 12:25 Dose: Not Given Documented by: Haloperidol (Haloperidol 1 Mg Tablet) 1 mg PO TID [facility] Last Admin: 08/30/20 14:13 Dose: 1 mg Documented by: Hydroxychloroquine Sulfate (Hydroxychloroquine 200 Mg Tablet) [facility] Last Admin: 08/30/20 09:39 Dose: 200 mg Documented by: Labetalol HCl (Labetalol (Prefilled) 20 Mg/4 Ml) 10 mg IV Q4H PRN PRN PRN Reason: SBP > 160; OR DBP > 120 Levothyroxine Sodium (Levothyroxine 75 Mcg Tablet) 75 mcg PO DAILY@0600 [facility] Last Admin: 08/30/20 05:40 Dose: 75 mcg Documented by: Melatonin (Melatonin 3 Mg Tablet) 3 mg PO QHS PRN PRN PRN Reason: INSOMNIA Nystatin (Nystatin Powder 15gm Bottle) 1 applic TOPICAL TID [facility]; Protocol Ondansetron HCl (Ondansetron 4 Mg/2 Ml Vial) 4 mg IV Q8H PRN PRN PRN Reason: NAUSEA/VOMITING Last Admin: 08/30/20 12:24 Dose: 4 mg Documented by: Potassium Chloride (Potassium Chloride 20 Meq Tablet) 40 meq PO DAILYCM [facility] Last Admin: 08/30/20 09:39 Dose: 40 meq Documented by: Pramipexole Dihydrochloride (Pramipexole Di-Hcl 0.5 Mg Tablet) 0.5 mg PO DAILY@2200 [facility] Pregabalin (Pregabalin 75 Mg Capsule) 225 mg PO BID [facility] Sodium Chloride (0.9% Saline Lock 10 Ml Syringe) 10 - 40 ml IV UD PRN PRN Reason: SALINE FLUSH Last Admin: 08/30/20 12:24 Dose: 10 ml Documented by: Medical Necessity - Tobacco Use Smoking Status: Never smoker Assessment/Plan All Active Problems (Last Reviewed 08/30/20 @ 00:[address] Jacques Santos MD) Hypoglycemia associated with type 2 diabetes mellitus (Acute) Dyspnea (Acute) Hypoglycemia -Resolved -IV fluids with dextrose discontinued -Suspect related to continuing oral medications and poor p.o. 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 Medina Medley has told her not to take Lasix in the past so she received no doses -Oxygen saturation on room air is 92% -BNP only mildly elevated doubt heart failure on admission Hypertensive urgency -Resolved -Continue home medications -Most recent blood pressure is 112/46 DM-2 -Patient on Toujeo 20 units daily -Patient on U500 75 units twice daily -We will restart U500 but will give only 50 units twice daily starting this evening -Moderate dose SSI initiated -Okay to check blood sugars before meals and at bedtime\as needed Gastroparesis -Patient states she has Haldol, Phenergan, and Zofran at home that she takes on a as needed basis -Currently having some nausea -We will evaluate p.o. intake through today and tomorrow morning -DC home tomorrow if able to take p.o. Leukocytosis -Suspect reactive related to hypoglycemia -Signs of infection CKD stage III -Follows with Dr. Medina Medley as an outpatient -No diuretics per discussion with patient at the direction of her flaking roll operator RA -continue Plaquenil RLS -Continue Requip Right lower extremity edema with ulceration on foot -No signs of infection -Ultrasound of right leg negative in emergency department -Continue dressings -Continue wound care Diabetic neuropathy -Continue Lyrica Chronic pain -Continue Ecru Hypothyroidism -Continue Synthroid Hyperlipidemia -Continues Zocor Chronic anemia -Stable -Continue iron supplementation Gout -Continue allopurinol Morbid obesity -Commend weight loss -Suspect QIAN recommend outpatient polysomnography-discussed with patient today DVT prophylaxis -Continue Lovenox CODE STATUS -Full code Inpatient E&M: 47268 Subs Hosp L3
[2020-08-30] MEDS: Nystatin Powder 15gm Bottle 1 APPLIC TOPICAL ×2 (16:52→21:38)
[2020-08-30 17:00] LABS: Bedside Glucose 232 mg/dL (70-110)
[2020-08-30 19:50] LABS: Bedside Glucose 237 mg/dL (70-110)
[2020-08-30] MEDS: Oxymetazoline 0.05% 1 SPRAY SPRAY.BTL 2 SPRAY NASAL (19:58)
[2020-08-30] MEDS: Menthol/Lanolin/Calamine/Znox 113 GM Tube 1 APPLIC TOPICAL (21:39)
[2020-08-30] MEDS: Atorvastatin Calcium 20 MG Tablet PO (21:40)
[2020-08-30] MEDS: Pramipexole Di-HCl 0.5 MG Tablet PO (21:40)
[2020-08-30] MEDS: Allopurinol 100 MG Tablet PO (21:40)
[2020-08-30 21:45] LABS: Bedside Glucose 151 mg/dL (70-110)
[2020-08-31] VITALS (7 sets, daily range): BP systolic 120–159; BP diastolic 58–74; PULSE 66–74; RESP 18; TEMP 36.3–37.2; O2SAT 91–93
[2020-08-31 02:31] LABS: Bedside Glucose 48 mg/dL (70-110)
[2020-08-31 02:56] LABS: Bedside Glucose 60 mg/dL (70-110)
[2020-08-31 03:16] LABS: Bedside Glucose 84 mg/dL (70-110)
[2020-08-31 05:23] LABS: Absolute Lymphocyte Count 2.32 X10^3/uL (0.83-4.51); Absolute Neutrophil Count 5.7 X10^3/uL (2.0-7.7); Basophil# 0.08 X10^3/uL; Basophil% 0.9 % (0-1); Eosinophils% 4.3 % (0-5); Hematocrit 38.9 % (37-47); Hemoglobin 11.9 g/dL (12.0-15.0); Lymphocyte # 2.32 X10^3/ul (4.0); Lymphocyte % 24.7 % (19-41); Mean Corp Hgb Conc 30.6 g/dL (32-36); Mean Corpuscular Hgb 27.7 pg (27.0-32.0); Mean Corpuscular Volume 90.7 fL (81-99); Mean Platelet Vol. 9.9 fl (6.2-12.0); Monocyte% 9.6 % (0-10); NRBC Flagged by Analyzer 0 % (0-5); Neutrophil # 5.65 X10^3/uL (2.7-7.7); Neutrophil % 60.2 % (47-70); Platelet Count 225 K/mm3 (150-450); RBC Distribution Width CV 14.7 % (11.6-14.6); RBC Distribution Width SD 48.8 fl (35.1-43.9); Red Blood Count 4.29 M/mm3 (4.2-5.4); White Blood Count 9.4 K/mm3 (4.4-11.0)
[2020-08-31 05:43] LABS: Anion Gap 5 (5-15); BUN 16 mg/dL (7-18); BUN/Creat Ratio 12.4 RATIO (10-20); Calcium,Total 8.6 mg/dL (8.5-10.1); Chloride 104 mmol/L (98-107); Creatinine, Serum 1.29 mg/dL (0.55-1.02); EST Glomerular Filtration Rate 44 mL/min (>60); Est Glom Filt Rate - Afr Amer 53 mL/min (>60); Glucose 174 mg/dL (74-106); Potassium 4.6 mmol/L (3.5-5.1); Sodium Level 137 mmol/L (136-145)
[2020-08-31] MEDS: Levothyroxine 75 MCG Tablet PO (05:45)
[2020-08-31] MEDS: Menthol/Lanolin/Calamine/Znox 113 GM Tube 1 APPLIC TOPICAL (05:45)
[2020-08-31] MEDS: Haloperidol 1 MG Tablet PO (05:45)
[2020-08-31] MEDS: Nystatin Powder 15gm Bottle 1 APPLIC TOPICAL (05:46)
[2020-08-31] MEDS: Oxymetazoline 0.05% 1 SPRAY SPRAY.BTL 2 SPRAY NASAL (06:25)
[2020-08-31] MEDS: Ondansetron 4 MG/2 ML Vial IV (08:07)
[2020-08-31 08:20] LABS: Bedside Glucose 161 mg/dL (70-110)
[2020-08-31] MEDS: Aspirin 81 MG TAB.CHEW PO (08:30)
[2020-08-31] MEDS: Carvedilol 12.5 MG Tablet PO (08:31)
[2020-08-31] MEDS: Hydroxychloroquine 200 MG Tablet PO (08:31)
[2020-08-31] MEDS: Pregabalin 75 MG Capsule 225 MG PO (08:31)
[2020-08-31] MEDS: Enoxaparin 40 MG/0.4 ML Syringe SC (08:32)
[2020-08-31] MEDS: Insulin Lispro 100 UNIT/ML INSULN.PEN SC (08:43)
--- NOTE | 2020-08-31 10:01 | PCM.DC.SUM ---
Discharge Date and Diagnosis - Problem List Patient Problems: Active and Suspected Problems (Last Reviewed 08/30/20 @ 00:[address] Jacques Santos MD) Hypoglycemia associated with type 2 diabetes mellitus (Acute) Dyspnea (Acute) Date of Admission: 08/29/20 Date of Discharge: 08/31/20 - Primary Discharge Diagnosis Acute Problems: Active Problems (Last Reviewed 08/30/20 @ 00:[address] Jacques Santos MD) Hypoglycemia associated with type 2 diabetes mellitus (Acute) Dyspnea (Acute) - Secondary Discharge Diagnosis Chronic Problems: Chronic Problems (Last Reviewed 08/30/20 @ 00:[address] Jacques Santos MD) Diabetic ulcer of toe (Chronic) Candidiasis of breast (Chronic) Ulcer of right foot with fat layer exposed (Chronic) Type 2 diabetes mellitus with diabetic polyneuropathy (Chronic) Rheumatoid arthritis (Chronic) Hammer toe of right foot (Chronic) Takotsubo cardiomyopathy (Chronic) Ulcer of right foot (Chronic) Type 2 diabetes mellitus with diabetic polyneuropathy (Chronic) NSTEMI (non-ST elevated myocardial infarction) (Chronic) Fibromyalgia (Chronic) Type 2 diabetes mellitus (Chronic) Diabetic gastroparesis (Chronic) GERD (gastroesophageal reflux disease) (Chronic) Seizure disorder (Chronic) Paroxysmal atrial fibrillation (Chronic) Chronic pain syndrome (Chronic) Takotsubo cardiomyopathy (Chronic) Iron deficiency anemia (Chronic) Depression (Chronic) Morbid obesity with BMI of 40.0-44.9, adult (Chronic) HLD (hyperlipidemia) (Chronic) Benign essential HTN (Chronic) Hospital Course and Treatment Imaging Results: STUDY: VENOUS DOPPLER ULTRASOUND - RIGHT LOWER EXTREMITY REASON FOR EXAM: Female, 64 years old. SHORTNESS OF BREATH TECHNIQUE: Ultrasound evaluation of the deep vein system to include villagomez-scale imaging and compression was performed. Villagomez-scale imaging and Doppler sonographic evaluation, including duplex spectral analysis and qualitative color flow sonography, was performed. COMPARISON: None. FINDINGS: Common Femoral Vein: Normal compression, spontaneity and augmentation. Normal color Doppler. Common Femoral Vein/Greater Saphenous Junction: Normal compression, spontaneity and augmentation. Normal color Doppler. Deep Femoral Vein: Normal compression, spontaneity and augmentation. Normal color Doppler. Femoral Proximal: Normal compression, spontaneity and augmentation. Normal color Doppler. Femoral Middle: Normal compression, spontaneity and augmentation. Normal color Doppler. Femoral Distal: Normal compression, spontaneity and augmentation. Normal color Doppler. Popliteal Vein: Normal compression, spontaneity and augmentation. Normal color Doppler. Posterior Tibial Vein: Normal compression, spontaneity and augmentation. Normal color Doppler. Peroneal Vein: Normal compression, spontaneity and augmentation. Normal color Doppler. US/Venous Duplex Imag/Limited/Uni IMPRESSION: Normal venous Doppler ultrasound of the lower extremity. STUDY: CTA CHEST REASON FOR EXAM: Female, 64 years old. SOB X 1 HOUR, HX CHF, HTN, CT, DIAB, PE IN PAST RADIATION DOSAGE (If Supplied By Facility): CTDIvol = ( 19.79 ) mGy, DLP = ( 508.98 ) mGycm TECHNIQUE: The examination was performed with the intravenous administration of IV 100mL Isovue-370. Post-processing of the angiographic images was performed, with multiplanar reformation and 3D reconstruction. Individualized dose optimization techniques were used for this CT. COMPARISON: None. FINDINGS: Normal enhancement of the main pulmonary artery and right and left pulmonary arteries. Normal enhancement of the bilateral peripheral pulmonary arteries. There is no demonstrated pulmonary embolism. Minor atherosclerotic changes of the aorta without evidence for aneurysm There is no demonstrated aortic dissection. Heart is enlarged and there is mild coronary artery calcification. Normal mediastinum. Normal hilar regions. Normal visualized trachea and bronchi. The lungs are well expanded. There is minor chronic interstitial thickening more pronounced in the lower lobes. Normal pleura. Normal chest wall structures. Dorsal spine demonstrates degenerative changes. Diffuse fatty infiltrated atrophic pancreas. CT/CTA Chest W/WO Contrast IMPRESSION: Minor chronic interstitial changes and ASHD.. No acute abnormalities. No evidence for aortic aneurysm periaortic leak or dissection. No evidence for pulmonary embolus Consultations 08/30/20 00:09 Consult: Onc/Wound/animal science professor Routine Comment: Reason for Consult:: wounds r lower ext 08/30/20 00:37 Consult: Onc/Wound/animal science professor Routine Comment: Operations: None, - - Right second toe amputation Procedures: None Summary of Care Provided: Ms. Gonzalez is a 64 year old morbidly obese WF with complicated past medical history who presented to the emergency department on 08/29/2020 with acute onset shortness of breath. She stated at that time that her shortness of breath was increased with mild exertion. She also reported she felt like she was having hypoglycemic episode as the hair on her head was wet which was reminiscent of her previous hypoglycemia episodes. On assessment with her glucometer at home blood sugar was noted to be 54 and she took 2 glucose tablets at that time. In the emergency department she was given octreotide and a dextrose infusion was initiated. She was also given p.o. intake however her blood sugars continue to remain low. With her shortness of breath a CTA of her chest was done and was negative. Her oxygen saturation was initially 82% on room air. She was also noted to be markedly hypertensive. Suspect possibly some flash pulmonary edema related to her hypertension. She was given her blood pressure medication and started on a dextrose drip and placed in the PCU. Troponin was assessed and it was negative and a BNP was 134 on admission. They did attempt to give her Lasix but she declined as she sees Dr. Medina Medley for nephrology and she was informed never to take Lasix. Once her blood sugar stabilized her dextrose drip was stopped and her blood sugars remained stabilized. Her home U500 was reinitiated at 50 units twice a day. Her home dose is 75 units twice a day and she takes 50 units in the middle of the day if she eats lunch which is not a consistent thing for her. She did have another low blood sugar at 2:30 in the morning on 08/31/2020. Nursing protocol with dextrose was initiated and blood sugars deena appropriately within 30 minutes and have been elevated since. She states she simply saw her pharmacy intake technician Chanda and she has been on Toujeo as well at home which was decreased from 30 units to 20 units. At this time we will hold her home Toujeo, continue her home U5 100 regimen and she is to follow-up as soon as possible pharmacy intake technician for further insulin adjustments. She did state her p.o. intake has been different here than she usually eats at home. Patient voiced understanding per discussion with discontinuation of Toujeo for the time being until discussed further with her pharmacy intake technician and with her you 500 regimen. She is discharged in stable condition. We did also discuss the patient's need for polysomnography as an outpatient. Patient's oxygen saturations dropped while she was sleeping and I suspect she has obstructive sleep apnea/obesity hypoventilation syndrome. She stated she would discuss this with her primary care doctor. Discharge diagnoses Hypoglycemia in the setting of insulin use-resolved Dyspnea-resolved Hypertensive urgency-resolved DM-2 uncontrolled Gastroparesis Leukocytosis-resolved CKD stage III RA RLS Right diabetic foot wound with ulcerations of first and third digits-noninfected Diabetic neuropathy Chronic pain Hypothyroidism Hyperlipidemia Chronic anemia Gout Super morbid obesity Suspected QIAN Start time greater than 35 minutes Patient Problems: Active and Suspected Problems (Last Reviewed 08/30/20 @ 00:[address] Jacques Santos MD) Hypoglycemia associated with type 2 diabetes mellitus (Acute) Dyspnea (Acute) Subjective: Her nausea is better today. Was able to eat approximately half of her breakfast without any issues. She did have 1 hypoglycemic episode approximately 2 AM. She states that she still eats a snack at night before bed typically at home this did not occur last night. She follows with her pharmacy intake technician at [facility]. - Physical Exam Vitals/I&O's: Vital Signs Temp Pulse Resp BP Pulse Ox 97.3 F L 74 18 144/58 H 92 08/31/20 08:30 08/31/20 08:30 08/31/20 08:30 08/31/20 08:30 08/31/20 08:30 Oxygen Flow Rate (L/min) 2 Oxygen Delivery Method Room Air Weight: 140.8 kg Body Mass Index (BMI) 51.2 Finger Stick Blood Glucose 43 Intake and Output for Last 24 Hours 08/29/20 08/30/20 08/31/20 23:59 23:59 23:59 Intake Total 2230 / 2230 230 / 230 Output Total 1850 / 1850 Balance 380 / 380 230 / 230 General: Alert, Oriented x3, Cooperative, No apparent distress, Well developed, Well nourished, - - Morbidly obese white female, lying in bed watching the [place] girls, patient appears comfortable HEENT: Atraumatic, PERRLA, EOMI, Normocephalic, EAC Clear Oral: Moist Mucosa, No Gingival or Mucosal Lesions/ Ulcerations, - - Mallampati 4, no thrush Neck: Supple, No JVD, Negative Carotid Bruits, Negative Hepatojugular Reflux, No Nodes, No Nuchal Rigidity, Trachea Midline, - - Short thick neck Lungs: Clear to auscultation, Normal air movement, No rhonchi, No wheeze, No rales, - - Distant secondary to body habitus Cardiovascular: Regular rate, Regular Rhythm, Normal S1, Normal S2, No murmurs, No Ectopic Activity, No rub noted, No Gallop Abdomen: Bowel Sounds Present, Soft, Non Tender, Non-Distended, Obese Extremities: No clubbing, No cyanosis, No edema, Capillary Refill Less than 3 Seconds, Peripheral Pulses Normal Skin: No rashes, Ulcer/ Wound - Right first and third digits Musculoskeletal: No Tenderness to Palpation of Joints or Extremities, No Muscle Wasting, Arthritic Changes Neurological: Cranial nerves II-XII grossly intact, Neuro grossly intact, Muscle tone normal, Coordination normal Psych/Mental Status: Normal Affect, Appropriate Microbiology Past 72 Hours 08/29/20 20:45 Mucosa - Nose SARS-CoV-2 Antigen (Rapid) - Final Laboratory Results 08/29/20 23:11: POC Glucose 41 L* 08/29/20 23:19: POC Glucose 40 L* 08/30/20 10:35: POC Glucose 232 H 08/30/20 13:09: POC Glucose 254 H 08/30/20 16:48: POC Glucose 232 H 08/30/20 19:45: POC Glucose 237 H 08/30/20 21:35: POC Glucose 151 H 08/31/20 02:26: POC Glucose 48 L 08/31/20 02:47: POC Glucose 60 L 08/31/20 03:11: POC Glucose 84 08/31/20 05:00: WBC 9.4, RBC 4.29, Hgb 11.9 L, Hct 38.9, MCV 90.7 D, MCH 27.7, MCHC 30.6 L D, RDW Std Deviation 48.8 H, RDW Coeff of Be 14.7 H, Plt Count 225, MPV 9.9, Immature Gran % (Auto) 0.300, Neut % (Auto) 60.2, Lymph % (Auto) 24.7, [place] % (Auto) 9.6, Eos % (Auto) 4.3, Baso % (Auto) 0.9, Absolute Neuts (auto) 5.7, Absolute Lymphs (auto) 2.32, Nucleated RBC % 0 08/31/20 05:00: Sodium 137, Potassium 4.6, Chloride 104, Carbon Dioxide 28.0, Anion Gap 5, BUN 16, Creatinine 1.29 H, Estim Creat Clear Calc 40.70, Est GFR (MDRD) Af Amer 53 L, Est GFR (MDRD) Non-Af 44 L, BUN/Creatinine Ratio 12.4, Glucose 174 H, Calcium 8.6 08/31/20 08:12: POC Glucose 161 H Current Medications Acetaminophen (Acetaminophen 325 Mg Tablet) 650 mg PO Q6H PRN PRN PRN Reason: Pain Score 1-10/Temp > 100.7 F Last Admin: 08/30/20 14:44 Dose: 650 mg Documented by: Hydrocodone Bitart/Acetaminophen (Hydrocodone Bitartrate/Apap 5/325 Tablet) 2 tablet PO Q6H PRN PRN PRN Reason: Pain 1-10 or Fever Last Admin: 08/30/20 22:47 Dose: 2 tablet Documented by: Allopurinol (Allopurinol 100 Mg Tablet) 100 mg PO QHS [facility] Last Admin: 08/30/20 21:40 Dose: 100 mg Documented by: Aspirin (Aspirin 81 Mg Tab.Chew) [facility] Last Admin: 08/31/20 08:30 Dose: 81 mg Documented by: Atorvastatin Calcium (Atorvastatin Calcium 20 Mg Tablet) 20 mg PO QHS [facility] Last Admin: 08/30/20 21:40 Dose: 20 mg Documented by: Calamine/Phenol (Menthol/Lanolin/Calamine/Znox 113 Gm Tube) 1 applic TOPICAL TID [facility]; Protocol Last Admin: 08/31/20 05:45 Dose: 1 applicatio Documented by: Carvedilol (Carvedilol 12.5 Mg Tablet) 12.5 mg PO BID [facility] Last Admin: 08/31/20 08:31 Dose: 12.5 mg Documented by: Cholecalciferol (Cholecalciferol (Vit D3) 1,000 Unit (25mcg)) 1,000 unit PO DAILY [facility] Last Admin: 08/31/20 08:32 Dose: 1,000 unit Documented by: Enoxaparin Sodium (Enoxaparin 40 Mg/0.4 Ml Syringe) 40 mg SC DAILY [facility] Last Admin: 08/31/20 08:32 Dose: 40 mg Documented by: Ferrous Sulfate (Ferrous Sulfate 325 Mg Tablet) 325 mg PO DAILY@1200 [facility] Last Admin: 08/30/20 12:25 Dose: Not Given Documented by: Haloperidol (Haloperidol 1 Mg Tablet) 1 mg PO TID [facility] Last Admin: 08/31/20 05:45 Dose: 1 mg Documented by: Hydroxychloroquine Sulfate (Hydroxychloroquine 200 Mg Tablet) 200 mg PO BIDCM [facility] Last Admin: 08/31/20 08:31 Dose: 200 mg Documented by: Insulin Human Lispro (Insulin Lispro 100 Unit/Ml Insuln.Pen) 0 unit SC [facility]; Protocol Last Admin: 08/31/20 08:43 Dose: 1 u Documented by: Insulin Human Regular (Insulin U-500 Pen) 50 units SC BIDAC [facility] Last Admin: 08/31/20 09:15 Dose: 50 units Documented by: Labetalol HCl (Labetalol (Prefilled) 20 Mg/4 Ml) 10 mg IV Q4H PRN PRN PRN Reason: SBP > 160; OR DBP > 120 Levothyroxine Sodium (Levothyroxine 75 Mcg Tablet) 75 mcg PO DAILY@0600 [facility] Last Admin: 08/31/20 05:45 Dose: 75 mcg Documented by: Melatonin (Melatonin 3 Mg Tablet) 3 mg PO QHS PRN PRN PRN Reason: INSOMNIA Nystatin (Nystatin Powder 15gm Bottle) 1 applic TOPICAL TID [facility]; Protocol Last Admin: 08/31/20 05:46 Dose: 1 applicatio Documented by: Ondansetron HCl (Ondansetron 4 Mg/2 Ml Vial) 4 mg IV Q8H PRN PRN PRN Reason: NAUSEA/VOMITING Last Admin: 08/31/20 08:07 Dose: 4 mg Documented by: Oxymetazoline HCl (Oxymetazoline 0.05% 1 [place].Btl) 2 spray NASAL BID [facility] Last Admin: 08/31/20 06:25 Dose: 2 spray Documented by: Potassium Chloride (Potassium Chloride 20 Meq Tablet) 40 meq PO DAILYCM [facility] Last Admin: 08/31/20 08:31 Dose: 40 meq Documented by: Pramipexole Dihydrochloride (Pramipexole Di-Hcl 0.5 Mg Tablet) 0.5 mg PO DAILY@2200 [facility] Last Admin: 08/30/20 21:40 Dose: 0.5 mg Documented by: Pregabalin (Pregabalin 75 Mg Capsule) 225 mg PO BID [facility] Last Admin: 08/31/20 08:31 Dose: 225 mg Documented by: Sodium Chloride (0.9% Saline Lock 10 Ml Syringe) 10 - 40 ml IV UD PRN PRN Reason: SALINE FLUSH Last Admin: 08/30/20 12:24 Dose: 10 ml Documented by: Home Medications: Medications to take at Discharge Levothyroxine Sodium 75 mcg PO DAILY 09/17/18 Hydroxychloroquine [Plaquenil] 200 mg PO BIDCM 11/30/18 allopurinol 100 mg tablet 100 mg PO QHS tab 03/30/19 Insulin Regular, Human [Humulin R U-500 Kwikpen] 75 unit SQ BID 04/11/19 Aspirin 81 mg PO DAILY 08/16/19 Ropinirole HCl 1 mg PO DAILY 08/16/19 hydrocodone 5 mg-acetaminophen 325 mg tablet 2 tab PO Q6H PRN 12/03/19 carvedilol 12.5 mg tablet 12.5 mg PO BID tab 03/09/20 furosemide 40 mg tablet 40 mg PO DAILY PRN tab 03/09/20 pregabalin 225 mg capsule 225 mg PO BID cap 04/14/20 cholecalciferol (vitamin D3) 25 mcg (1,000 unit) capsule 25 mcg PO DAILY 08/03/20 Ferrous Sulfate [Iron] 325 mg PO DAILY 08/29/20 Haloperidol 1 mg PO TID 08/29/20 Ondansetron [Zofran] 8 mg PO Q8H PRN PRN 08/29/20 Simvastatin [Zocor] 40 mg PO QHS 08/29/20 Primary Care Physician: Devan Parks MD [Primary Care Provider] - Medical Necessity - Tobacco Use Smoking Status: Never smoker Meaningful Use Info Meaningful Use Diagnoses (Choose all that apply): None applicable Inpatient E&M: 40723 [facility]
--- NOTE | 2020-08-31 10:09 | CASEMGMT ---
Patient has a Healthcare Power of [employer] and a Healthcare Living Will on file at [facility]. Her Healthcare Power of [employer] is her sister Linda. Mckayla SNEED MSW
--- NOTE | 2020-08-31 10:25 | DCINST_ITS ---
- Discharge Diagnoses Current Active Problems: Current Active and Chronic Problems (Last Reviewed 08/30/20 @ 00:[address] Jacques Santos MD) Hypoglycemia associated with type 2 diabetes mellitus (Acute) Dyspnea (Acute) Diabetic ulcer of toe (Chronic) Candidiasis of breast (Chronic) Ulcer of right foot with fat layer exposed (Chronic) Type 2 diabetes mellitus with diabetic polyneuropathy (Chronic) Rheumatoid arthritis (Chronic) Hammer toe of right foot (Chronic) Takotsubo cardiomyopathy (Chronic) Ulcer of right foot (Chronic) Type 2 diabetes mellitus with diabetic polyneuropathy (Chronic) NSTEMI (non-ST elevated myocardial infarction) (Chronic) Fibromyalgia (Chronic) Type 2 diabetes mellitus (Chronic) Diabetic gastroparesis (Chronic) GERD (gastroesophageal reflux disease) (Chronic) Seizure disorder (Chronic) Paroxysmal atrial fibrillation (Chronic) Chronic pain syndrome (Chronic) Takotsubo cardiomyopathy (Chronic) Iron deficiency anemia (Chronic) Depression (Chronic) Morbid obesity with BMI of 40.0-44.9, adult (Chronic) HLD (hyperlipidemia) (Chronic) Benign essential HTN (Chronic) You will use the following diet at home:: Calorie/Carbohydrate Controlled (specify 1200, 1400, etc) - Sure to eat a bedtime snack, Cardiac Your food should be the consistency of: Regular Your liquids should be the consistency of: Regular/Thin Discharge Activity: Return to Normal Activity Allergies/Adverse Reactions: Allergies ciprofloxacin [From Cipro] Allergy (Verified 08/29/20 20:23) short of breath cyclobenzaprine Allergy (Verified 08/29/20 20:23) rash levofloxacin [From Levaquin] Allergy (Verified 08/29/20 20:23) PT UNSURE OF REACTION metformin Allergy (Verified 08/29/20 20:23) other sulfamethoxazole Allergy (Verified 08/29/20 20:23) itch topiramate Allergy (Verified 08/29/20 20:23) PT UNSURE OF REACTION trimethoprim Allergy (Verified 08/29/20 20:23) itch valacyclovir [From Valtrex] Allergy (Verified 08/29/20 20:23) other ketorolac [From Toradol] Adverse Reaction (Verified 08/29/20 20:23) Other Medications to take at Discharge Levothyroxine Sodium 75 mcg PO DAILY 09/17/18 Hydroxychloroquine [Plaquenil] 200 mg PO BIDCM 11/30/18 allopurinol 100 mg tablet 100 mg PO QHS tab 03/30/19 Insulin Regular, Human [Humulin R U-500 Kwikpen] 75 unit SQ BID 04/11/19 Aspirin 81 mg PO DAILY 08/16/19 Ropinirole HCl 1 mg PO DAILY 08/16/19 hydrocodone 5 mg-acetaminophen 325 mg tablet 2 tab PO Q6H PRN 12/03/19 carvedilol 12.5 mg tablet 12.5 mg PO BID tab 03/09/20 furosemide 40 mg tablet 40 mg PO DAILY PRN tab 03/09/20 pregabalin 225 mg capsule 225 mg PO BID cap 04/14/20 cholecalciferol (vitamin D3) 25 mcg (1,000 unit) capsule 25 mcg PO DAILY 08/03/20 Ferrous Sulfate [Iron] 325 mg PO DAILY 08/29/20 Haloperidol 1 mg PO TID 08/29/20 Ondansetron [Zofran] 8 mg PO Q8H PRN PRN 08/29/20 Simvastatin [Zocor] 40 mg PO QHS 08/29/20 Primary Care Physician: Devan Parks MD [Primary Care Provider] - Please follow up with your Primary Care Physician in: 1 week Test Results: Test results from this visit will be discussed in further detail at your follow- up appointment, if applicable. Please Follow Up With: Ray Zapata DPM When: Call for appt for diabetic foot care Please Follow Up With: Cortney Mcnamara When: VELMA for Diabetes with Hypoglycemia
--- NOTE | 2020-08-31 11:16 | PHA.DC.MR ---
Pharmacy Service has performed discharge medication reconciliation for this patient. The patient's discharge medication list was reviewed for discrepancies and discrepancies were resolved. Home Medications Levothyroxine Sodium 75 mcg PO DAILY 09/17/18 Hydroxychloroquine [Plaquenil] 200 mg PO BIDCM 11/30/18 allopurinol 100 mg tablet 100 mg PO QHS tab 03/30/19 Insulin Regular, Human [Humulin R U-500 Kwikpen] 75 unit SQ BID 04/11/19 Aspirin 81 mg PO DAILY 08/16/19 Ropinirole HCl 1 mg PO DAILY 08/16/19 hydrocodone 5 mg-acetaminophen 325 mg tablet 2 tab PO Q6H PRN 12/03/19 carvedilol 12.5 mg tablet 12.5 mg PO BID tab 03/09/20 furosemide 40 mg tablet 40 mg PO DAILY PRN tab 03/09/20 pregabalin 225 mg capsule 225 mg PO BID cap 04/14/20 cholecalciferol (vitamin D3) 25 mcg (1,000 unit) capsule 25 mcg PO DAILY 08/03/20 Ferrous Sulfate [Iron] 325 mg PO DAILY 08/29/20 Haloperidol 1 mg PO TID 08/29/20 Ondansetron [Zofran] 8 mg PO Q8H PRN PRN 08/29/20 Simvastatin [Zocor] 40 mg PO QHS 08/29/20
--- NOTE | 2020-09-01 15:20 | CASEMGMT ---
ALMA KLINE Discharge Follow-up Phone Call: CYNTHIA: Shelly Strata: 10 Call Date: 09/01/2020 Discharge Date: 08/31/2020 Time of Call: 1520 Duration: 1 min Admitting Diagnosis: Hypoglycemia RN RAISA attempted to complete follow-up phone call after recent hospitalization. No answer, voice message left with return contact information. Patient had follow-up appts scheduled prior to discharge.
--- OUTSIDE RECORDS SUMMARY | 2021-01-17 07:38 | XMS RPT_ITS ---
Patient Summarization (C-CDA 2.1 CCD) Created on:January 17, 2021 Patient:Soni Cramer Sex:Female :1955 External Reference #:[id number] Author Organization Sample organization Care Team Providers Name Role Phone [facility] Unavailable Unavailable [facility] Unavailable Unavailable [facility] Attending Unavailable Rui Parks Primary Care Provider Rui Parks Primary Care Provider Charly Primary Care Provider Unavailable Allergies Allergy Reported Allergy Type Date of Reaction(s) Facility Classification Allergen(s) Onset Adhesive Tape Adhesive Tape Substance 06-29-20 [facility] (1 source) Allergy 16 cyclobenzaprine cyclobenzaprine Drug Allergy 06-10-20 Rash, Nausea [facility] (5 sources) [facility] metFORMIN metFORMIN Drug Allergy 06-28-20 Other: See Adebayo (4 sources) 17 Comments Clinic NSAIDs Ketorolac Drug Allergy 03-22-20 Other: See Adebayo (5 sources) 06 Comments, Clinic Hives Quinolones (antibiotic) Ciprofloxacin Drug Allergy 06-10-20 Rash, N ausea [facility] (5 sources) 13 [facility] Sulfamethoxazole / Trimethoprim Sulfamethoxazole / Drug Allergy 07-31 Hector [facility] (4 sources) Trimethoprim 17 Clinic ciprofloxacin; Drug Allergy 06-10-20 Rash Janie (2 sources) Translations: 13 General [CIPROFLOXACIN] [facility] Rep[facility] cyclobenzaprine; Drug Allergy 06-10-20 Rash Janie (2 sources) Translations: 13 General [CYCLOBENZAPRINE] [facility] Rep[facility] ketorolac; Drug Allergy 03-22-20 Other: See Janie (2 sources) Translations: 06 Comments General [KETOROLAC] [facility] Rep[facility] metFORMIN; Drug Allergy 06-28-20 Other: See Janie (2 sources) Translations: 17 Comments General [METFORMIN] [facility] Repository OTHER; Propensity to Hooper (1 source) Translations: adverse General [OTHER] reactions Health (disorder) System Repository Sulfamethoxazole / Drug Allergy 07-31-20 Hives Clev eland (1 source) Trimethoprim 17 Clinic Encounters Encounter Date Encounter Type Care Provider Facility Start: 01-14-2021 Emergency department Kimmie Green MD [facility] End: 01-15-2021 patient visit Work Phone: Comment on above: Dehydration (Primary Dx); Nausea; Hypoglycemia Start: 12-23-2020 Patient encounter [facility] Provider [facility] End: 12-23-2020 procedure MAIN Start: 12-23-2020 Results Only [facility] Provider [facility] ic Department Start: 12-20-2020 Patient [facility] End: 12-20-2020 procedure MAIN Start: 12-20-2020 Results Only [facility] Provider [facility] ic Department Start: 03-29-2020 Patient encounter External Provider [facility] End: 03-29-2020 procedure Start: 03-29-2020 Results Only External Provider External-Non [facility] Start: 08-31-2018 Patient encounter [facility] - Clinical Facility:[facility] Start: 07-19-2017 Ambulatory [facility] Facility:[facility] End: 07-20-2017 [facility] Start: 07-08-2017 Ambulatory [facility] Facility:[facility] Medications Current Medications Medication Drug Class(es) Dates Sig (Normalized) Sig (Orig inal) allopurinol 100 mg oral tablet Xanthine Oxidase take 1 tablet by allopurinol (6 sources) Inhibitor mouth once daily (ZYLOPRIM) 100 MG tablet Take 100 mg by mouth daily 0 Active Comment on above: Take 100 mg by mouth once da jeffy. aspirin 81 mg oral tablet Platelet Aggregation take 1 tablet by aspirin 81 MG (6 sources) Inhibitor, Nonsteroidal mouth once daily tablet Take 81 mg Anti-inflammatory Drug by mo uth daily 0 Active take 1 tablet by mouth once daily aspiri n, enteric coated (ASPIRIN, ENTERIC COATED) 81 mg EC tablet Take 81 mg by mouth once daily. 0 Suspended Comment on above: Take 81 mg by mouth once scotty ly. diphenhydrAMINE hydrochloride 25 mg oral tablet Histamine-1 Rece ptor take 1 tablet diphenhydrAMINE (1 source) Antagonist by mouth every (BENADRYL) 25 MG tablet six hours as Take 25 mg by m outh needed every 6 hours a s needed for Itching 0 A ctive lamoTRIgine 100 mg oral tablet Mood Stabilizer, take 1 tablet lamoTRIgine (LAMICTAL) (6 sources) Anti-epileptic Agent by mouth once 100 MG tablet Take 100 daily mg by mouth scotty ly 0 Active take 1 tablet by mouth twice daily lamoT RIgine (LAMICTAL) 100 mg tablet Take 100 mg by mouth twice daily . 0 Suspended Comment on above: Take 100 mg by mouth twice d aily. metoclopramide 5 mg oral tablet Dopamine-2 Receptor ta ke 1 tablet metoclopramide (REGLAN) (1 source) Antagonist by mouth four 5 MG tablet Ta ke 5 mg times daily by mouth 4 time s daily 0 Active montelukast 10 mg oral tablet Leukotriene Receptor fabby e 1 tablet montelukast (SINGULAIR) (6 sources) Antagonist by mouth once 10 MG tablet T amy 10 mg daily by mouth nightl y 0 Active Comment on above: Take 10 mg by mouth daily at bedtime. morphine sulfate 15 mg oral tablet Opioid Agonist take 1 tablet by morphine (MSIR) 15 MG (6 sources) mouth every six hours tablet Take 15 mg by as needed for pain mouth muriel ry 6 hours as needed for Pain 0 Active take 1 tablet by mouth every four hours morphine IR 15 mg tablet Take 15 mg by as needed mouth every 4 hours as needed. 0 Suspended Comment on above: Take 15 mg by mouth every 4 hours as needed. olmesartan medoxomil 20 mg oral tablet Angiotensin 2 Receptor take 1 tablet by olmesartan (BENICAR) (1 source) Maria Teresa mouth once daily 20 MG table t Take 20 mg by mouth scotty ly 0 Active omeprazole 40 mg delayed release oral capsule Proton Pump Inhibi tor take 1 capsule by omeprazole (PRILOSEC) (6 sources) mouth once daily 40 MG delay ed release capsule Take 40 mg by mouth daily 0 A ctive Comment on above: Take 40 mg by mouth once scotty ly. pregabalin 100 mg oral capsule take 1 cap amy by mouth pregabalin (LYRICA) 100 MG (6 sources) twice daily capsule Take 10 0 mg by mouth 2 times daily 0 Active take 2 capsules by mouth twice daily pre gabalin (LYRICA) 75 mg capsule Take 150 mg by mouth twice daily . 0 Suspended Comment on above: Take 150 mg by mouth twice d aily. rivaroxaban 20 mg oral tablet Factor Xa Inhibitor rivaroxaban (XARELTO) (1 source) 20 MG TABS tabl et Take 20 mg by mouth 0 Active rOPINIRole 1 mg oral tablet Nonergot Dopamine take 1 t ablet by rOPINIRole (REQUIP) 1 (6 sources) Agonist mouth three times MG tablet Take 1 mg by daily mouth 3 times d aily 0 Active take 1 tablet by mouth once daily rOPINI Role 1 mg tablet Take 1 mg by mouth once daily. 0 Suspended Comment on above: Take 1 mg by mouth once brittani y. simvastatin 40 mg oral tablet HMG-CoA Reductase take 1 tablet by simvastatin (ZOCOR) 40 (6 sources) Inhibitor mouth once daily MG tablet T amy 40 mg by mouth nightl y 0 Active Comment on above: Take 40 mg by mouth daily at bedtime. Completed/Discontinued Medications Medication Drug Class(es) Dates Sig (Normalized) Sig (Orig inal) haloperidol 0.5 mg oral tablet Typical Antipsychotic t amy 1 tablet by haloperidol (5 sources) mouth twice daily (HALDOL) 0 .5 mg tablet Take 0.5 mg by mouth twice daily. 0 Suspen ded Comment on above: Take 0.5 mg by mouth twice d aily. HYDROCODONE BIT/ACETAMINOPHEN (VICODIN ORAL) HYDROCODONE BIT/ACETAMINOPHEN (VICODIN (5 sources) ORAL) Take by m outh. 0 Suspended HYDROCODONE BIT/ACET AMINOPHEN (VICODIN ORAL) Take by mouth. 0 Active Comment on above: Take by mouth. insulin degludec Insulin Analog inject 120 mg by INSUL IN DEGLUDEC (TRESIBA (5 sources) subcutaneous injection FLEXT OUCH U-100 once daily SUBCUTANEOUS) I nject 120 mg subcutaneous ly once daily. 0 Suspen ded inject 120 mg by subcutaneous injection INSULIN DEGLUDEC (TRESIBA FLEXTOUCH U-100 once daily SUBCUTANEOUS) Inject 120 mg subcutaneously once daily. 0 Active Comment on above: Inject 120 mg subcutaneously once daily. levothyroxine sodium 0.05 mg oral capsule l-Thyroxine Levothyroxine 50 mcg cap Take by (5 sources) mouth once brittani y. 0 Suspended Comment on above: Take by mouth once daily. methadone hydrochloride 5 mg oral tablet Opioid Agonist take 2 tablets by methadone (DOLOPHINE) 5 (5 sources) mouth once daily at mg table t Take 10 mg by bedtime mouth once brittani y. At bedtime 0 Suspe nded Comment on above: Take 10 mg by mouth once scotty ly. At bedtime naloxegol 25 mg oral tablet Opioid Antagonist take 1 t ablet by naloxegol (MOVANTIK) 25 (5 sources) mouth once daily mg tablet T amy 25 mg by mouth once brittani y. 0 Suspended Comment on above: Take 25 mg by mouth once scotty ly. ondansetron 8 mg disintegrating oral tablet Serotonin-3 Start: take 1 ondansetron orally (5 sources) Receptor 03-03-2018 tablet by disintegrating Antagonist mouth every (ZOFRAN ODT) 8 mg eight hours disintegrating as needed tablet Take 1 t ablet by mouth every 8 hours as needed . 90 tablet 6 2017 Suspended Comment on above: Take 1 tablet by mouth every 8 hours as needed. 1 ml promethazine hydrochloride 25 mg/ml injection Phenothia zine Start: 01-14-2021 promethazine (12 sources) End: 01-14-2021 (PHENERGAN) injection 12.5 mg Start: 01-14-2021 take 1 tablet by mouth promethazine (PHE NERGAN) 25 MG End: 01-21-2021 every six hours as needed tablet Take 1 tablet by mouth for nausea every 6 hours as nee ded for Nausea WARNING: May cause drowsiness. May impa ir ability to operate vehicles or machinery. Do not us e in combination with alc ohol. 20 tablet 0 01/14/2021 01/21/2021 Active Start: 12-18-2017 take 1 tablet by mouth promethazine (PHE NERGAN) 25 mg every eight hours as tablet Take 1 table t by mouth needed every 8 hours as nee ded (for nausea). 90 tablet 6 12/18/2017 Suspended take 1 tablet by mouth promethazine (PHE NERGAN) 25 mg three times daily tablet Take 25 mg by mouth three times daily. 0 Suspended Comment on above: Take 25 mg by mouth three ti mes daily. Take 1 tablet by mouth every 8 hours as needed (for nausea). sertraline 100 mg oral tablet Serotonin Reuptake take 1 tablet by sertraline (ZOLOFT) (5 sources) Inhibitor mouth once daily 100 mg tabl et Take 100 mg by mouth onc e daily. 0 Suspen ded Comment on above: Take 100 mg by mouth once da jeffy. 50 ml sodium chloride 9 mg/ml injection Start: 05-29-2 021 0.9 % sodium (1 source) End: 01-14-2021 chloride maribell us valsartan 80 mg oral tablet Angiotensin 2 take 1 table t valsartan (5 sources) Receptor Maria Teresa by mouth once (DIOVAN) 8 0 mg daily tablet Take 80 mg by mouth once daily. 0 Suspended Comment on above: Take 80 mg by mouth once scotty ly. Payers Date Payer Category Payer Unknown [employer]UE xxxxx [id number] [employer] MEDIBLUE ACCESS 1. [id number] 2019-Present 3. [id number] PPO 2016 Unknown [id number] Plan of Treatment Date Care Activity Detail Author Start: Creatinine measurement Creatinine monitoring [facility] 01-14-2022 Work Phone: Start: Potassium monitoring Potassium monitoring [facility] 01-14-2022 Work Phone: Start: Influenza vaccination INFLUENZA (#1) [facility] 04-19-2020 Start: ADVANCE DIRECTIVE ADVANCE DIRECTIVE [facility] 2019 DISCUSSION DISCUSSION Start: BONE DENSITY BONE DENSITY [facility] 2019 Start: Pneumococcal 65+ years Pneumococcal 65+ years [facility] 2019 Vaccine (2 of 2 - Vaccine (2 of 2 - Work Phone: PPSV23) PPSV23) Start: PNEUMOVAX AGE 65 AND PNEUMOVAX AGE 65 AND [facility] 2019 OVER WITH 5YR LOOKBACK OVER WITH 5YR LOOKBACK (#1) (#1) Start: Adult depression DEPRESSION SCREENING [facility] 07-23-2019 screening assessment Start: Mammography MAMMOGRAM [facility] 12-31-2018 [facility]: [facility] 06-19-2018 neoplasm of colon Start: Tuberculosis screening COLORECTAL CANCER [facility] nd [facility] 06-19-2018 SCREENING,SEE MODIFIER Start: HbA1c (Bld) [Mass HBA1C [facility] 10-29-2017 fraction] Start: Shingles Vaccine (2 of Shingles Vaccine (2 of [facility] 08-02-2017 2) 2) Work Phone: Start: Hepatitis B surface LDL CHOLESTEROL [facility] 11-12-2015 antibody level Start: Screening for DEXA (modify frequency [facility] 2009 osteoporosis per FRAX score) Work Phone: Start: Screening for malignant Breast cancer screen [facility] [place] 2004 neoplasm of breast Work Phone: Start: Screening for malignant [facility] 2004 neoplasm of colon Start: SHINGRIX VACCINE (1 of SHINGRIX VACCINE (1 of [facility] 2004 2) 2) Start: Diabetes screen Diabetes screen [facility] 1994 Work Phone: Start: DTaP/Tdap/Td vaccine (1 DTaP/Tdap/Td vaccine (1 [facility] 1973 - Tdap) - Tdap) Work Phone: Start: Urine microalbumin DTAP,TDAP,TD (1 - Tdap) [facility] 1973 profile Start: ANNUAL PCP TEAM CHRONIC ANNUAL PCP TEAM CHRONIC [facility] 1972 DISEASE VISIT DISEASE VISIT Start: HEPATITIS C SCREENING HEPATITIS C SCREENING [facility] 1972 Start: HIV SCREENING HIV SCREENING [facility] 1972 Start: COVID-19 Vaccine (1) COVID-19 Vaccine (1) [facility] 1966 Work Phone: Start: [object Object] DIABETIC FOOT EXAM [facility] magui 1964 Start: Hepatitis B screening URINE ALBUMIN:CREATININE C [facility] 1964 RATIO Start: Hepatitis C antibody, DILATED RETINAL EXAM [facility] 1964 confirmatory test Start: Lipid panel Lipid screen [facility] 1964 Work Phone: Start: Hepatitis C screening Hepatitis C screen [facility] 1954 Work Phone: Problems Active Problems Problem Classification Problem Date Documented Date Ep isodic/Chronic Epilepsy; convulsions Seizure; Onset: 12-26-2020 Episod ic (4 sources) Translations: 12-26-2020 [Unspecified convulsions] Fluid and electrolyte disorders Dehydration; Episodic (1 source) Translations: [Dehydration] Nausea and vomiting Nausea with Onset: 02-17-2015 Episodic (7 sources) vomiting, 02-17-2015 unspecified; Translations: [Nausea and vomiting] Other endocrine disorders Hypoglycemia; C hronic (1 source) Translations: [Hypoglycemia, unspecified] Unclassified Unknown / Onset: (1 source) UNK(Unknown) 07-19-2017 Unclassified Onset: (1 source) 08-31-2018 Past or Other Problems Problem Classification Problem Date Documented Date Ep isodic/Chronic Other gastrointestinal disorders Diarrhea; Onset: 05-27-20 07 Episodic (5 sources) Translations: 05-27-2007 [Diarrhea, unspecified] Tuberculosis Nodular Onset: 04-08-2007 Episodic (5 sources) tuberculosis of 04-08-2007 lung; Translations: [Tuberculosis of lung] Procedures Date Procedure Procedure Detail Performing Clin ician Start: 01-14-2021 Basic metabolic panel Kimmie Noriega MD calcium total Work Phone: Start: 01-14-2021 Hepatic function panel Kimmie De La O MD Work Phone: Start: 12-23-2020 CT OUTSIDE CD DICOM IMPORT [facility] Provider Start: 12-23-2020 XR OUTSIDE CD DICOM IMPORT [facility] Provider Start: 12-20-2020 XR OUTSIDE CD DICOM IMPORT [facility] Provider Start: 03-29-2020 EXTERNAL IMAGING External Prov ider Start: 07-23-2018 Adult depression screening [facility] Provider assessment Start: 12-31-2017 Mammography External Provi andra Start: 06-19-2013 Colonoscopy [facility] Provider Results Test Name Value Interpretation Reference Range Facility Basic Metabolic Panel Ordered By: Kimmie Green on 01-14-2021 Anion gap [Moles/Vol] 6 mmol/L 3 - 13 mmol/L [facility] Work Phone: [phone] Calcium [Mass/Vol] 9.1 mg/dL 8.4 - 10.4 mg/dL [facility] Work Phone: [phone] Chloride [Moles/Vol] 98 mmol/L 98 - 107 mmol/L [facility] Work Phone: [phone] CO2 [Moles/Vol] 31 mmol/L High 22 - 30 mmol/L [facility] Work Phone: [phone] Creatinine [Mass/Vol] 1.03 mg/dL 0.52 - 1.25 mg/dL [facility] Work Phone: EGFR IF NonAfrican 56.5 mL/min Abnormal >60 [facility] Work Phone: [phone] Comment on above: KDIGO guidelines provide the following GFR categories: Stage GFR(ml/min/1.73 m2) Terms G1 >=90 Justina l or high G2 60-89 Mildl y decreased* G3a 45-59 Mildl y to moderately decreased G3b 30-44 Moder ately to severely decreased G4 15-29 Sever venessa decreased G5 <15 Kidne y failure *Relative to young adult lev el. In the absence of evidence o f kidney damage, neither GFR category G1 nor G2 fulfill t he criteria for CKD. The CKD-EPI equation is chanda dated in individuals 18 years of age and older. Currently the best equation for estimating glomerular filtra tion rate (GFR) from serum creatinine in children is th e Bedside Garces equation. It is less accurate in patie nts with extremes of muscle mass, restriction of dietary protein, ingestion of creatine, extra-renal metabolism of cr eatinine, or treatment with medications that affect owen l tubular creatinine secretion. GFR/1.73 sq 65.4 mL/min/{1.73_m2} >60 [facility] M.predicted among Work Phone : blacks MDRD (S/P/Bld) [Vol rate/Area] Glucose [Mass/Vol] 116 mg/dL High 70 - 100 [facility] mg/dL Work Phone: [phone] Potassium [Moles/Vol] 4.2 mmol/L 3.5 - 5.1 [facility] mmol/L Work Phone: [phone] Sodium [Moles/Vol] 135 mmol/L 135 - 145 [facility] mmol/L Work Phone: Urea nitrogen (BldV) 15 mg/dL 7 - 20 mg/dL [facility] [Mass/Vol] Work Phone: [phone] Basic Metabolic Panel on 01-14-2021 Anion gap [Moles/Vol] 6 mmol/L Normal 3-13 [facility] Comment on above: Performed By: #### HEMDF, BM P3, LFT3, LIPA4 #### [facility] [address] [place] [address] Calcium [Mass/Vol] 9.1 mg/dL Normal 8.4-10.[address] [facility] Comment on above: Performed By: #### HEMDF, BM P3, LFT3, LIPA4 #### [facility] [address] [place] [address] Chloride [Moles/Vol] 98 mmol/L Normal 98-107 [facility] Comment on above: Performed By: #### HEMDF, BM P3, LFT3, LIPA4 #### [facility] [address] [place] [address] CO2 [Moles/Vol] 31 mmol/L High 22-30 [facility] Comment on above: Performed By: #### HEMDF, BM P3, LFT3, LIPA4 #### [facility] [address] [place] [address] Creatinine [Mass/Vol] 1.03 mg/dL Normal 0.52-1.25 [facility] Comment on above: Performed By: #### HEMDF, BM P3, LFT3, LIPA4 #### [facility] [address] [place] [address] GFR/1.73 sq M.predicted among 65.4 mL/min/{1.73_m2} Normal >6 0 [facility] blacks MDRD (S/P/Bld) [Vol rate/Area] Comment on above: Performed By: #### HEMDF, BM P3, LFT3, LIPA4 #### [facility] [address] [place] [address] GFR/1.73 sq M.predicted among 56.5 mL/min/{1.73_m2} Abnormal >6 0 [facility] non-blacks MDRD (S/P/Bld) [Vol rate/Area] Comment on above: Result Comment: KDIGO guidel terrance provide the following GFR categories: Stage GFR(ml/min/1.73 m2) Te rachael G1 >=90 Normal or high G2 60-89 Mildly decreased* G3a 45-59 Mildly to moderate ly decreased G3b 30-44 Moderately to agueda rely decreased G4 15-29 Severely decreased G5 <15 Kidney failure *Relative to young adult rich hernandez. In the absence of evidence o f kidney damage, neither GFR category G1 nor G2 fulfill t he criteria for CKD. The CKD-EPI equation is chanda dated in individuals 18 years of age and older. Currently the best equation for estimating glomerular filtra tion rate (GFR) from serum creatinine in children is th e Bedside Garces equation. It is less accurate in patie nts with extremes of muscle mass, restriction of dietary protein, ingestion of creatine, extra-renal metabolism of cr eatinine, or treatment with medications that affect owen l tubular creatinine secretion. Performed By: #### HEMDF, BM P3, LFT3, LIPA4 #### [facility] [address] [place] [address] Glucose [Mass/Vol] 116 mg/dL High 70-[address] [facility] Comment on above: Performed By: #### HEMDF, BM P3, LFT3, LIPA4 #### [facility] [address] [place] [address] Potassium [Moles/Vol] 4.2 mmol/L Normal 3.5-5.1 [facility] Comment on above: Performed By: #### HEMDF, BM P3, LFT3, LIPA4 #### [facility] [address] [place] [address] Sodium [Moles/Vol] 135 mmol/L Normal 135-[address] [facility] Comment on above: Performed By: #### HEMDF, BM P3, LFT3, LIPA4 #### [facility] [address] [place] [address] Urea nitrogen [Mass/Vol] 15 mg/dL Normal 7-20 [facility] Comment on above: Performed By: #### HEMDF, BM P3, LFT3, LIPA4 #### [facility] [address] [place] [address] Hemogram (CBC) w/Auto Diff Ordered By: Kimmie Green on 01-14-2021 Absolute Baso # 0.1 10*3/uL 0.0 - 0.2 10*3/uL [facility] Work Phone: Absolute Neut # 9.2 10*3/uL High 1.8 - 7.0 10*3/uL [facility] Work Phone: [phone] Basophils/100 WBC (Bld) 0.7 % 0.0 - 2.0 % [facility] Work Phone: [phone] Eosinophils (Bld) 0.3 10*3/uL 0.0 - 0.5 10*3/uL [facility] [#/Vol] Work Phone: [phone] Eosinophils/100 WBC 2.8 % 1.0 - 6.0 % [facility] (Bld) Work Phone: [phone] Granulocytes/100 WBC 80.1 % High 40.0 - 80.0 % [facility] (Bld) Work Phone: [phone] Hematocrit (Bld) [Volume 28.6 % Low 35.0 - 47.0 % [facility] fraction] Work Phone: [phone] Hemoglobin.gastrointesti 9.5 g/dL Low 11.7 - 16.0 g/dL [facility] nal spec 1 Ql (Stl) Work Padmaja ne: Lymphocytes (Bld) 1.1 10*3/uL 1.0 - 4.3 10*3/uL [facility] [#/Vol] Work Phone: [phone] Lymphocytes/100 WBC 9.3 % Low 20.0 - 40.0 % [facility] (Bld) Work Phone: [phone] MCH (RBC) [Entitic mass] 27.5 pg 26.0 - 34.0 pg S [facility] Work Phone: [phone] MCHC (RBC) [Mass/Vol] 33.1 % 32.0 - 36.0 % [facility] Work Phone: [phone] MCV (RBC) [Entitic vol] 83.1 fL 79.0 - 98.0 fL [facility] Work Phone: [phone] Monocytes (Bld) [#/Vol] 0.8 10*3/uL 0.0 - 0.8 10*3/uL [facility] Work Phone: Monocytes/100 WBC (Bld) 7.1 % 2.0 - 10.0 % [facility] Work Phone: Platelet distribution 13.9 % 11.5 - 14.5 % [facility] width (Bld) [Ratio] Work Padmaja ne: Platelet mean volume 6.3 fL Low 7.4 - 10.4 fL [facility] (Bld) [Entitic vol] Work Padmaja ne: Platelets (Bld) [#/Vol] 313 10*3/uL 140 - 440 10*3/uL [facility] Work Phone: RBC (Bld) [#/Vol] 3.44 10*6/uL Low 3.80 - 5.20 [facility] 10*6/uL Work Phone: WBC (Bld) [#/Vol] 11.5 10*3/uL High 3.6 - 10.7 10*3/uL [facility] Work Phone: Hemogram w/ Autodiff on 01-14-2021 Abs Baso Cnt 0.1 10*3/uL Normal 0.0-0.2 [facility] Comment on above: Performed By: #### HEMDF, BM P3, LFT3, LIPA4 #### [facility] [address] [place] [address] Abs Neutrophile Cnt 9.2 10*3/uL High 1.8-7.0 [facility] Comment on above: Performed By: #### HEMDF, BM P3, LFT3, LIPA4 #### [facility] [address] [place] [address] Basophils/100 WBC (Bld) 0.7 % Normal 0.0-2.0 [facility] Comment on above: Performed By: #### HEMDF, BM P3, LFT3, LIPA4 #### [facility] [address] [place] [address] Eosinophils (Bld) [#/Vol] 0.3 10*3/uL Normal 0.0-0.5 [facility] Comment on above: Performed By: #### HEMDF, BM P3, LFT3, LIPA4 #### [facility] [address] [place] [address] Eosinophils/100 WBC (Bld) 2.8 % Normal 1.0-6.0 [facility] Comment on above: Performed By: #### HEMDF, BM P3, LFT3, LIPA4 #### [facility] [address] [place] [address] Erythrocyte distribution width (RBC) 13.9 % Normal 11.5 -14.5 [facility] [Ratio] Comment on above: Performed By: #### HEMDF, BM P3, LFT3, LIPA4 #### [facility] [address] [place] [address] Granulocytes/100 WBC (Bld) 80.1 % High 40.0-80.0 [facility] Comment on above: Performed By: #### HEMDF, BM P3, LFT3, LIPA4 #### [facility] [address] [place] [address] Hematocrit (Bld) [Volume fraction] 28.6 % Low 35.0-4 7.0 [facility] Comment on above: Performed By: #### HEMDF, BM P3, LFT3, LIPA4 #### [facility] [address] [place] [address] Hemoglobin (Bld) [Mass/Vol] 9.5 g/dL Low 11.7-16.0 [facility] Comment on above: Performed By: #### HEMDF, BM P3, LFT3, LIPA4 #### [facility] [address] [place] [address] Lymphocytes (Bld) [#/Vol] 1.1 10*3/uL Normal 1.0-4.3 [facility] Comment on above: Performed By: #### HEMDF, BM P3, LFT3, LIPA4 #### [facility] [address] [place] [address] Lymphocytes/100 WBC (Bld) 9.3 % Low 20.0-40.0 [facility] Comment on above: Performed By: #### HEMDF, BM P3, LFT3, LIPA4 #### [facility] [address] [place] [address] MCH (RBC) [Entitic mass] 27.5 pg Normal 26.0-34.0 [facility] Comment on above: Performed By: #### HEMDF, BM P3, LFT3, LIPA4 #### [facility] [address] [place] [address] MCHC 33.1 % Normal 32.0-36.0 [facility] Comment on above: Performed By: #### HEMDF, BM P3, LFT3, LIPA4 #### [facility] [address] [place] [address] MCV (RBC) [Entitic vol] 83.1 fL Normal 79.0-98.0 [facility] Comment on above: Performed By: #### HEMDF, BM P3, LFT3, LIPA4 #### [address] [place] [address] Monocytes (Bld) [#/Vol] 0.8 10*3/uL Normal 0.0-0.8 [facility] Comment on above: Performed By: #### HEMDF, BM P3, LFT3, LIPA4 #### [facility] [address] [place] [address] Monocytes/100 WBC (Bld) 7.1 % Normal 2.0-10.0 [facility] Comment on above: Performed By: #### HEMDF, BM P3, LFT3, LIPA4 #### [facility] [address] [place] [address] Platelet mean volume (Bld) [Entitic vol] 6.3 fL Low 7.4-10.4 [facility] Comment on above: Performed By: #### HEMDF, BM P3, LFT3, LIPA4 #### [facility] [address] [place] [address] Platelets (Bld) [#/Vol] 313 10*3/uL Normal 140-440 [facility] Comment on above: Performed By: #### HEMDF, BM P3, LFT3, LIPA4 #### [facility] [address] [place] [address] RBC (Bld) [#/Vol] 3.44 10*6/uL Low 3.80-5.20 [facility] Comment on above: Performed By: #### HEMDF, BM P3, LFT3, LIPA4 #### [facility] [address] [place] [address] WBC (Bld) [#/Vol] 11.5 10*3/uL High 3.6-10.7 [facility] Comment on above: Performed By: #### HEMDF, BM P3, LFT3, LIPA4 #### [facility] [address] [place] [address] Hepatic Function on 01-14-2021 Albumin [Mass/Vol] 3.2 g/dL Low 3.5-5.[address] [facility] Comment on above: Performed By: #### HEMDF, BM P3, LFT3, LIPA4 #### [facility] [address] [place] [address] ALP [Catalytic activity/Vol] 163 U/L High 38-126 [facility] Comment on above: Performed By: #### HEMDF, BM P3, LFT3, LIPA4 #### [facility] [address] [place] [address] ALT [Catalytic activity/Vol] 47 U/L High 0-34 [facility] Comment on above: Result Comment: The ALT test is performed by an updated assay method. Please note that the referen ce intervals have been changed and are now sex spec ific. Performed By: #### HEMDF, BM P3, LFT3, LIPA4 #### [facility] [address] [place] [address] AST [Catalytic activity/Vol] 42 U/L Normal 15-46 [facility] Comment on above: Performed By: #### HEMDF, BM P3, LFT3, LIPA4 #### [facility] [address] [place] [address] Bilirubin [Mass/Vol] 1.0 mg/dL Normal 0.2-1.3 [facility] Comment on above: Performed By: #### HEMDF, BM P3, LFT3, LIPA4 #### [facility] [address] [place] [address] Bilirubin.indirect [Mass/Vol] 0.0 mg/dL Normal 0.0-0.3 [facility] Comment on above: Performed By: #### HEMDF, BM P3, LFT3, LIPA4 #### [facility] [address] [place] [address] Protein [Mass/Vol] 6.8 g/dL Normal 6.3-8.2 [facility] Comment on above: Performed By: #### HEMDF, BM P3, LFT3, LIPA4 #### [facility] [address] [place] [address] Hepatic Function Panel Ordered By: Kimmie Green on 01-14-2021 Albumin [Mass/Vol] 3.2 g/dL Low 3.5 - 5.0 g/dL [facility] Work Phone: [phone] ALP (Bld) [Catalytic 163 U/L High 38 - 126 U/L [facility] activity/Vol] Work Phone: ALT [Catalytic 47 U/L High 0 - 34 U/L [facility] activity/Vol] Work Phone: Comment on above: The ALT test is performed by an updated assay method. Please note that the referen ce intervals have been changed and are now sex spec ific. AST [Catalytic activity/Vol] 42 U/L 15 - 46 U/L [facility] Work Phone: [phone] Bilirubin [Mass/Vol] 1.0 mg/dL 0.2 - 1.3 mg/dL [facility] Work Phone: [phone] Bilirubin.indirect 0.0 mg/dL 0.0 - 0.3 mg/dL [facility] [Mass/Vol] Work Phone: [phone] Free PSA/Total PSA [Mass 6.8 g/dL 6.3 - 8.2 g/dL [facility] fraction] Work Phone: [phone] Lipase Ordered By: Marissa Green on 01-14-2021 Lipase [Catalytic activity/Vol] 40 U/L 23 - 300 U/L [facility] Work Phone: Lipase on 01-14-2021 Lipase [Catalytic activity/Vol] 40 U/L Normal 23-300 [facility] Comment on above: Performed By: #### HEMDF, BM P3, LFT3, LIPA4 #### [facility] [address] [place] [address] No Panel Information Ordered By: Kimmie Green on 01-14-2021 Interpretation and review of Abnormal [facility] laboratory results Work Phon e: Test Performed by [employer], [address]: [address] , [place] [address] [facility] Work Phone: [phone] CNDS on 01-10-2021 CNDS HNO ID: [id number] Normal [facility] Author: Flavio Chaves MD Center Service: Hospital Medicine Author Type: Physician Type: Discharge Summary Filed: 01/10/2021 11:59 AM Note Text: DISCHARGE SUMMARY PATIENT NAME: Soni Cramer Code Status: Not on file Highest Readmission Risk Score: 17 The 30 day readmissions risk score is derived from an internally validated risk model which evaluates patient level noé racteristics, utilization history, medication orders and lab results up until the day of discharge. Patients with a score of 40 or above are co nsidered highest risk for readmission. Specific patient level drivers w ill be listed at the bottom of the summary. Admission Information Admission Information ADMIT DATE: 12/26/2020 DISCHARGE DATE: 01/10/2021 MY DOCTORS AND MEDICAL TEAM: My Main Hospital Doctor: Flavio Chaves, * Primary Care Provider: You Parks MD My Medical Team Members: Treatment Team: Attending Provider: Flavio Chaves MD Primary Service: Camden Burks Consulting: Benja Rosa MD MY CONDITION AT DISCHARGE: Fair REASON I WAS IN THE HOSPITAL: Alteration in mental sta tus and sensorium SUMMARY OF WHAT HAPPENED WHILE I WAS IN THE HOSPITAL: This is a 65 year old female transferred from [place] with a hx of CHF, PAF, RA, seizure disorder, Takotsubo cardiomyopathy, CAD s/p STEMI, pre ssure ulcers on feet, QIAN, HL, hypothyroidism, diverticulitis, firbomy algia, hx of CVA, morbid obesity and HTN, who was [facility] to [facility] ER 5 after family found her at her home confused, pacing, and arsenio tated. She had already been started on antibiotics and antivirals emp irically for suspected bacterial or viral meningoencephalitis. This was ruled out by negative lumbar puncture and CSF analysis. Diagnosed with acute encephalopathy and MRI findings s uggestive of PRES likely due to markedly elevated and poorly controlled hypertension. Blood pressure was better controlled. Patient was also suspe cted to be having seizures and was on continuous EEG which was negative for seizures. Antiepileptic medications were discontinued. No recurr ence of any suggestive symptoms since. She has suffered significan t functional decline and debility due to her prolonged hospitalizat ion and critical illness. She will need physical and occupational thera py for rehabilitation in a snf facility. Hospital stay was complicated by acute hypoxic respiratory failure likel y secondary to acute pulmonary edema from hypertension and perhaps fluid ov erload. She is requiring supplemental oxygen which we will continue. Can be weaned over the next 1 to 2 weeks. Hospital stay also complicated by acute kidney injury which is now thankfully improving with a creati nine almost back to baseline. Instructed to repeat BMP in 1 week. OTHER PROBLEMS/DIAGNOSIS: Principal Problem: Seizures (HCC) Active Problems: Obesity, Class III, BMI >= 40 Type 2 diabetes mellitus with hyperglycemia (HCC) Insulin resistance Encephalopathy PRES (posterior reversible encephalopathy syndrome) Hypertensive emergency Acute respiratory failure with hypoxia (HCC) Acute pulmonary edema (HCC) Resolved Problems: * No resolved hospital problems. * OPERATIONS PERFORMED WHILE IN THE HOSPITAL: None IMPORTANT TEST/PROCEDURES: No procedures performed TEST RESULTS NOT AVAILABLE AT THIS TIME: No pending results Discharge Disposition Discharge Disposition: [facility] Facility - Less than 30 Days Additional Provider to Provider Information: Principal Problem: ? 1. ?Acute?toxic?encephalopathy. ? ? 2. ?Acute kidney injury.? ? 3. ?Multiple decubitus ulcers. ? ? 4. ?Morbid obesity. ? 5. ?Type 2 diabetes. ? 6. ?Functional decline and severe debility. ? ? 7. Acute hypoxic respiratory failure ? Resolved Problems: * No resolved hospital problems. * Treatment Team: Attending Provider: Flavio Chaves MD Primary Service: Camden Burks Consulting: Benja Rosa MD Transitions of Care Critical Issues: LAB MONITORING NEEDED: BMP 1 week LABS AND PROCEDURES PENDING AT DISCHARGE: No pending r esults. Sepsis Ruled Out FOLLOW-UP APPOINTMENTS ALREADY SCHEDULED WITH A [facility] PROVIDER: No future appointments. ALLERGIES Allergen Reactions - Bactrim [Sulfametho* Hives - Toradol [Ketorolac] Other: See Comments Increase BP - Ciprofloxacin Rash - Flexeril [Cyclobenz* Rash - Metformin Other: See Comments Migraines DISCHARGE MEDICATION: Current Discharge Medication Lis t START taking these medications mirtazapine (REMERON) 30 mg Take 30 mg by mouth daily at bedtime. Qty: 30 tablet Refills: 2 labetalol (TRANDATE) 100 mg Take 100 mg by mouth twice daily. Qty: 60 tablet Refills: 2 minoxidil (LONITEN) 2.5 mg Take 2.5 mg by mouth once daily. Qty: 30 tablet Refills: 2 insulin glargine (LANTUS SOLOSTAR, BASAGLAR (more cont ent not included)... CONSULT PROG on 12-18 CONSULT PROG HNO ID: [id number] [facility] Medical Author: Benja Rosa MD Center Service: Endocrinology Author Type: Physician Type: Consult Progress Note Filed: 01/10/2021 10:57 AM Note Text: ENDOCRINOLOGY CONSULT PROGRESS NOTE SERVICE DATE: 01/10/2021 SERVICE TIME: 10:55 AM Subjective INTERVAL HISTORY OF PRESENT ILLNESS: Interval history: Soni remains monitored on a medical ortega. Remains b edbound. Some PO intake but erratic. No nausea or vomiting repo rted to me. I spoke with her primary RN. Glucoses: Yesterday; Pre-breakfast/fastin mg/dL. Pre-lunch: 164 mg/dL. Pre-supper: 174 mg/dL, Bedtime: 207 mg/dL. Today Pre-breakfast/fastin mg/dL. Current hospital insulin regimen: Basal: Insulin glargine (Lantus) 26 units, dosed in AM and 26 units dosed in PM. Prandial: Insulin?Novolin R (Regular)?10?units with me als. Supplemental with meals: Insulin?Novolin R (Regular)?s cher based on 2?unit(s) insulin per 50 mg/dL of glucose above 150 mg /dL. Supplemental at bedtime: Insulin?Novolin R (Regular)?s cher based on 2?unit(s) insulin per 50 mg/dL of glucose above 150 mg /dL. Previous history: Diabetes Mellitus type 2 x years. Follows with physician in [place] area. Home insulin: Humulin U-500 Regular Insulin 75 units breakfast Humulin U-500 Regular Insulin 50 units lunch Humulin U-500 Regular Insulin 50 units supper ? HbA1c 12/27/2020: 9.2% Current Facility-Administered Medications Medication Dose Route Frequency - aspirin, enteric coated 81 mg tab(s) 81 mg ORAL BRITTANI Y - sodium chloride 0.9 % (flush) 2-10 mL (BD POSIFLUSH) 2-10 mL INTRAVENOUS q 12 H - heparin 5,000 Units injection 5,000 Units SUBCUTANEO US q 12 H - sodium chloride 0.9 % (flush) 3-5 mL (BD POSIFLUSH) 3-5 mL INTRAVENOUS q 12 H - LORazepam 1 mg injection (ATIVAN) 1 mg INTRAVENOUS q 5 MIN PRN - dextrose 40 % 15 g 15 g ORAL PRN Or - glucagon 1 mg injection 1 mg INTRAMUSCULAR PRN Or - dextrose 50% in water 25 mL syringe 12.5 g INTRAVENO US PRN - hydrALAZINE 10 mg injection (APRESOLINE) 10 mg INTRA VENOUS q 6 H PRN - pill senior trainer (patient-specific) 1 Each Miscell. (Med .Supl.;Non-Drugs) PRN - ondansetron (PF) 4 mg injection (ZOFRAN) 4 mg INTRAV ENOUS q 6 H PRN - sodium chloride 0.65 % 2 Vida (AYR, OCEAN) 2 Vida EACH NOSTRIL PRN - ipratropium-albuterol 3 mL nebulizer solution (DUONE B) 3 mL INHALATION QID - acetaminophen 650 mg tab(s) (TYLENOL) 650 mg ORAL q 4 H PRN - insulin regular human injection (short acting) (Soledad KELLI R,HumuLIN R) SUBCUTANEOUS w MEALS AND HS - ipratropium-albuterol 3 mL nebulizer solution (DUONE B) 3 mL INHALATION q 6 H PRN - insulin glargine 26 Units pen (long acting) (LANTUS SOLOSTAR, BASAGLAR KWIKPEN) 26 Units SUBCUTANEOUS BID 8A/BEDTIME - insulin regular human 10 Units injection (short acti ng) (NovoLIN R,HumuLIN R) 10 Units SUBCUTANEOUS w MEALS - mirtazapine 30 mg (REMERON) 30 mg ORAL AT BEDTIME - minoxidil 2.5 mg tab(s) (LONITEN) 2.5 mg ORAL DAILY - labetalol 100 mg tab(s) (TRANDATE) 100 mg ORAL q 12 H Objective PHYSICAL EXAM: BP 127/56 Pulse 74 Temp (Src) 98.7 (Axillary) Re sp 20 Ht 5' 5.984[per previously height documentation per review of EMR[ (1.68m) Wt 313 lb 4.8 oz (142.1kg) SpO2 95% BMI 50.59 kg/(m2) . O2 Therapy: Nasal Cannula, Liters: 3 Assessment/Plan Assessment: Impression: 1.?Type 2 diabetes mellitus with hyperglycemia, with l isabela-term current use of insulin (HCC) 2. Insulin resistance. 3. Insulin long-term use. 4. Obesity with BMI >50 kg/m2 5. Medical anorexia.?Improving.? Plans: For today: Will continue Insulin glargine (Lantus) and [facility]. Will continue to hold off on her home insulin (Humulin U-500 Regular Insulin). Will make minor dose changes. If discharged to a SNF, send on the Insulin glargine ( Lantus) and Novolin R (Regular) doses from today. Please note: Some elements copied from previous endocr inology notes, which have been updated where appropriate, and all reflect rory price medical decision making from today. Benja Rosa MD January 10, 2021 10:55 AM Please note, the time of this note does not reflect th e time I saw this patient today, but the time of this documentation. SIGNATURE: Benja Rosa MD PATIENT NAME: Soni Cramer DATE: January 10, 2021 TIME: 10:55 AM PAGER: [phone] NURSING PROG on 12-18 NURSING HNO ID: [id number] Normal [facility] PROG Author: Yolanda Aaron RN G eneral Service: ? Medical Author Type: Registered Nurse Center Type: Nursing Progress Note Filed: 01/10/2021 2:49 PM Note Text: Nursing Progress Note Patient Name: Soni Cramer Patient Location: [id number] Daily Note: report called to [facility]. This note was completed by: Yolanda HU on NUTRITION HNO ID: [id number] Nando Janie [facility] Author: Dawna Adan RD [facility] Service: Nutrition Therapy Author Type: Registered Dietitian Type: Nutrition Filed: 01/10/2021 12:44 PM Note Text: NUTRITION THERAPY REASSESSMENT NOTE SERVICE DATE: 01/10/2021 SERVICE TIME: 9:35 AM Nutrition Assessment: Recommended Malnutrition Diagnosis: Moderate Protein-C alorie Malnutrition In the context of: Acute Illness or Injury Based on: Muscle Loss;Insufficient Energy Intake Nutrition Diagnosis: Problem: Suboptimal protein/energy intake Related to: Inability to consume sufficient nutrients As evidenced by: Patient/family self-report;Medical co ndition;Intake records;Early satiety;Depletion of fat/muscle stores Estimated kilocalorie needs: 8644-2673 Calorie Calculation Method: 25-30 kcals/kg Estimated protein needs (grams): 71-89 Grams protein determined by: 1.2 - 1.5 g/kg;Bowie body weight Care Plan: Continue current diet (Continue current diet per PONY TRIMMER a nd 100% assistance with feeding at meals) Supplements: Boost Glucose Control (-TID) Medications: Appetite stimulants (continue as ordered) Labs: Potassium;Phosphorus;Magnesium (continue to michael tor and replace when low) Monitor and Evaluation: Monitor fluid/electrolyte rosalino nce;Meet greater than 75% of estimated needs;Monitor bowel function;Mon itor labs, I/Os, vital signs, weight Discharge Recommendations: Diet;Oral Supplements Diet: carb controlled, heart healthy and consistency/t extures per ST of Minced and Moist (L5),thin liquids Enteral/Tube Feedings: Boost Glucose Control or equiva lent-TID if poor po persists ? Interval History: LOS day 14. 65 yo female here for se izures. Endocrinology, OT/PT, wound care. PONY TRIMMER, continue to fol low. Diet per PONY TRIMMER of minced and moist, thin liquids 01/02. Noted started on appetite stimulant of Remeron 01/07/21. Plan at discharge if for SNF. Intake History: Nutrition Intake Prior to Admission: Unable to determi ne (but suspect adequate with noted increase in weight over almost 2 y ears) Current Intake: Less than 75% estimated energy needs O margie: 7 days since 01/02 po intake 0-50% but pt drinking Boost GCC well- T ID and pt rpeorts her appetite is slowly improving, and sometimes staff feeds her and sometimes she feeds herself. Started Remeron 01/07/21. Diet Orders (From admission, onward) Start Ordered 01/02/21 1200 DIET FOOD CONSISTENCY CONTROLLED START N OW Question Answer Comment Food Consistency MINCED AND MOIST (L5) Liquid Consistency THIN LIQUID (L0) 01/02/21 1153 01/02/21 1015 DIET SUPPLEMENTS START NOW Question Answer Comment Supplement 1 BOOST GLUCOSE CONTROL STRAWBERRY Supplement 1 Frequency 1. BREAKFAST Supplement 1 Frequency 5. DINNER Supplement 2 BOOST GLUCOSE CONTROL VANILLA Supplement 2 Frequency 3. LUNCH 01/02/21 1004 Anthropometrics: Height: 167.6 cm (5' 5.98) (per previously height doc umentation per review of EMR) Weight: (!) 142.1 kg (313 lb 4.8 oz) Dosing Weight: 59 kg (130 lb 1.1 oz) Usual Weight: (Patient not answering any qeustions- pe r wt hx appears to be mostly 285 lbs back in 07/2018) Body mass index is 50.59 kg/m?. Morbidly Obese Weight change percentage over time: Wt gain over almos t 2 years per wt hx re Physical Exam: Subcutaneous fat loss: No fat loss Muscle loss: Mild Potential micronutrient deficiency: Skin;Teeth (missin g bottom teeth, and skin with noted decub ulcers) Edema/Ascites: Upper extremities;Lower extremities Upper Extermity: Moderate 2+ Lower Extermity: Moderate 2+ GI Symptoms: Early satiety;Swallowing problems Functional Status: Regressed Potential Signs of Inflammation: Leukocytosis;Hypoalbu minemia;Chronic condition;Hyperglycemia MNT Billing Type: Re-assess/15 min 3 units SIGNATURE: Dawna Adan RD PATIENT NAME: Soni carlos DATE: January 10, 2021 TIME: 10:03 AM PAGER: [phone] Renal function 2000 panel on 01-10-2021 Albumin [Mass/Vol] 2.7 g/dL Low 3.9-4.9 [facility] Comment on above: Order Comment: Specimen Type : BLOOD SPECIMEN Performed By: #### 4091-5 ## ## [facility] CLIA [id number] [address] [place] [address] Anion gap [Moles/Vol] 8 mmol/L Low 9-18 [facility] Comment on above: Order Comment: Specimen Type : BLOOD SPECIMEN Performed By: #### 4091-5 ## ## [facility] CLIA [id number] [address] [place] [address] Calcium [Mass/Vol] 9.3 mg/dL Normal 8.5-10.2 [facility] Comment on above: Order Comment: Specimen Type : BLOOD SPECIMEN Performed By: #### 4091-5 ## ## [facility] CLIA [id number] [address] [place] [address] Chloride [Moles/Vol] 103 mmol/L Normal 97-105 [facility] Comment on above: Order Comment: Specimen Type : BLOOD SPECIMEN Performed By: #### 4091-5 ## ## [facility] CLIA [id number] [address] [place] [address] CO2 [Moles/Vol] 22 mmol/L Normal 22-30 [facility] Comment on above: Order Comment: Specimen Type : BLOOD SPECIMEN Performed By: #### 4091-5 ## ## [facility] CLIA [id number] [address] [place] [address] Creatinine [Mass/Vol] 1.49 mg/dL High 0.58-0.96 [facility] Comment on above: Order Comment: Specimen Type : BLOOD SPECIMEN Performed By: #### 4091-5 ## ## [facility] CLIA [id number] [address] [place] [address] GFR/1.73 sq M.predicted MDRD 42 mL/min/{1.73_m2} Normal [facility] (S/P/Bld) [Vol rate/Area] Ce nter Comment on above: Order Comment: Specimen Type : BLOOD SPECIMEN Result Comment: 35 eGFR (Estimated GFR) Units o f measure: mL/min/1.73 meters squared eGFR is derived from the ree xpressed MDRD Study equation using the following parameters: serum creatinine, age, gender and race. The creatinine assay has been calibrated to be traceable to IDNV. An eGFR <60 mL/min/1.73m2 for >3 mo nths is consistent with chronic kidney disease. Refer to KDOQI guidelines for clinical interpretation. In patients with unstable renal function, e.g. those with acute k idney injury, the eGFR may n ot accurately reflect actual GFR. Performed By: #### 4091-5 ## ## [facility] CLIA [id number] [address] [place] [address] Glucose [Mass/Vol] 173 mg/dL High 74-99 [facility] Comment on above: Order Comment: Specimen Type : BLOOD SPECIMEN Result Comment: The [place] Diabetes Association (ADA) provides guidance for cutoff values for fasting glucose and random glucose. The ADA defines fasting as no caloric intake for at least 8 hours. Fas ting plasma glucose results between 100 to 125 mg/dL indicate increased risk for diabetes (prediabetes). Fasting plasma glucose resul ts greater than or equal to 126 mg/dL meet the criteria for diagnosis of diabetes. In the absence of unequivocal hyperglycemia, results should be confirmed by repeat testing. In a patient with classic s ymptoms of hyperglycemia or hyperglycemic crisis, random plasma glucose results greater than or equal to 200 mg/dL meet the criteria for diagnosis of diabetes. Reference: Standards of [facility] Care in Diabetes 2016, [place] [employer] Association. Diabetes Care. 2016.39(Suppl 1). Performed By: #### 4091-5 ## ## [facility] CLIA [id number] [address] [place] [address] Phosphate [Mass/Vol] 4.2 mg/dL Normal 2.7-4.8 [facility] Comment on above: Order Comment: Specimen Type : BLOOD SPECIMEN Performed By: #### 4091-5 ## ## [facility] CLIA [id number] [address] [place] [address] Potassium [Moles/Vol] 4.5 mmol/L Normal 3.7-5.1 [facility] Comment on above: Order Comment: Specimen Type : BLOOD SPECIMEN Performed By: #### 4091-5 ## ## [facility] CLIA [id number] [address] [place] [address] Sodium [Moles/Vol] 133 mmol/L Low 136-144 [facility] Comment on above: Order Comment: Specimen Type : BLOOD SPECIMEN Performed By: #### 4091-5 ## ## [facility] CLIA [id number] [address] [place] [address] Urea nitrogen [Mass/Vol] 40 mg/dL High 7-21 [facility] Comment on above: Order Comment: Specimen Type : BLOOD SPECIMEN Performed By: #### 4091-5 ## ## [facility] CLIA [id number] [address] [place] [address] 2019 CORONAVIRUS on 01-09-2021 SARS-CoV-2 (COVID-19) RNA COVID 19 SOURCE ENGLISH AS A SECOND LANGUAGE INSTRUCTOR: Normal [facility] MARIA G+probe Ql (Unsp spec) UPPER RESPIRATORY TRACT [facility] Center COVID 19 RESULT ENGLISH AS A SECOND LANGUAGE INSTRUCTOR: Negative for COVID19 (SARS CoV2) by RT-PCR or equivale nt method. This test was developed and its performance characteristics determined by [facility]'s [facility] [place]. This test has been authorized by FDA under an Emergency Use Authorization (EUA). This test has been validated in accordance with the FDA's Guidance Document Policy for Diagnostics Testing in Laboratories Certified to Perform High Complexity Testing under CLIA prior to Emergency use Authorization for Coronavir us Disease 2019 during the Public Health Emergency issued on October 17, 2019. Test performed by [facility], [facility] [place], [address] [place] [address]. Comment on above: Performed By: #### [id number] # ### [facility] CLIA [id number] [address] [place] [address] CONSULT PROG on 12-18 CONSULT PROG HNO ID: [id number] [facility] Medical Author: Benja Rosa MD Center Service: Endocrinology Author Type: Physician Type: Consult Progress Note Filed: 01/09/2021 10:35 AM Note Text: ENDOCRINOLOGY CONSULT PROGRESS NOTE SERVICE DATE: 01/09/2021 SERVICE TIME: 10:32 AM Subjective INTERVAL HISTORY OF PRESENT ILLNESS: Interval history: Soni doing same this AM Remains in bed. PO intake remains erratic. Glucoses: Yesterday; Pre-breakfast/fastin mg/dL. Pre-lunch: 157 mg/dL. Pre-supper: 151 mg/dL, Bedtime: 188 mg/dL. Today Pre-breakfast/fastin mg/dL. Current hospital insulin regimen: Basal: Insulin glargine (Lantus) 26 units, dosed in AM and 26 units dosed in PM. Prandial: Insulin?Novolin R (Regular)?10?units with me als. Supplemental with meals: Insulin?Novolin R (Regular)?s cher based on 2?unit(s) insulin per 50 mg/dL of glucose above 150 mg /dL. Supplemental at bedtime: Insulin?Novolin R (Regular)?s cher based on 2?unit(s) insulin per 50 mg/dL of glucose above 150 mg /dL.?? Previous history: Diabetes Mellitus type 2 x years. Follows with physician in [facility]. Home insulin: Humulin U-500 Regular Insulin 75 units breakfast Humulin U-500 Regular Insulin 50 units lunch Humulin U-500 Regular Insulin 50 units supper ? HbA1c 12/27/2020: 9.2% Current Facility-Administered Medications Medication Dose Route Frequency - aspirin, enteric coated 81 mg tab(s) 81 mg ORAL BRITTANI Y - sodium chloride 0.9 % (flush) 2-10 mL (BD POSIFLUSH) 2-10 mL INTRAVENOUS q 12 H - heparin 5,000 Units injection 5,000 Units SUBCUTANEO US q 12 H - sodium chloride 0.9 % (flush) 3-5 mL (BD POSIFLUSH) 3-5 mL INTRAVENOUS q 12 H - LORazepam 1 mg injection (ATIVAN) 1 mg INTRAVENOUS q 5 MIN PRN - dextrose 40 % 15 g 15 g ORAL PRN Or - glucagon 1 mg injection 1 mg INTRAMUSCULAR PRN Or - dextrose 50% in water 25 mL syringe 12.5 g INTRAVENO US PRN - hydrALAZINE 10 mg injection (APRESOLINE) 10 mg INTRA VENOUS q 6 H PRN - pill senior trainer (patient-specific) 1 Each Miscell. (Med .Supl.;Non-Drugs) PRN - ondansetron (PF) 4 mg injection (ZOFRAN) 4 mg INTRAV ENOUS q 6 H PRN - sodium chloride 0.65 % 2 Vida (AYR, OCEAN) 2 Vida EACH NOSTRIL PRN - ipratropium-albuterol 3 mL nebulizer solution (DUONE B) 3 mL INHALATION QID - acetaminophen 650 mg tab(s) (TYLENOL) 650 mg ORAL q 4 H PRN - insulin regular human injection (short acting) (Soledad KELLI R,HumuLIN R) SUBCUTANEOUS w MEALS AND HS - ipratropium-albuterol 3 mL nebulizer solution (DUONE B) 3 mL INHALATION q 6 H PRN - insulin glargine 26 Units pen (long acting) (LANTUS SOLOSTAR, BASAGLAR KWIKPEN) 26 Units SUBCUTANEOUS BID 8A/BEDTIME - insulin regular human 10 Units injection (short acti ng) (NovoLIN R,HumuLIN R) 10 Units SUBCUTANEOUS w MEALS - mirtazapine 30 mg (REMERON) 30 mg ORAL AT BEDTIME - amLODIPine 5 mg tab(s) (NORVASC) 5 mg ORAL DAILY Objective PHYSICAL EXAM: BP 143/70 Pulse 74 Temp (Src) 98.4 (Oral) Resp 1 8 Ht 5' 5.984[per previously height documentation per review of EMR[ (1. 68m) Wt 313 lb 4.8 oz (142.1kg) SpO2 94% BMI 50.59 kg/(m2). O2 Therapy: Nasal Cannula, Liters: 5 (found on 5lpm) Assessment/Plan Assessment: Impression: 1.?Type 2 diabetes mellitus with hyperglycemia, with l isabela-term current use of insulin (HCC) 2. Insulin resistance. 3. Insulin long-term use. 4. Obesity with BMI >50 kg/m2 5. Medical anorexia.?Improving.? Plans: For today: - basal: continue Insulin glargine (Lantus) dosed twic e daily. - prandial: continue Novolin R (Regular) with meals. H old if no PO intake. - supplemental: Novolin R (Regular) via scale. Use devin e scale. Continue to hold off on her home insulin, Humulin U-50 0 Regular Insulin. While in [facility], will use Insu kelli glargine (Lantus) and Novolin R (Regular). If discharged to SNF, send on current insulin. Please note: Some elements copied from previous endocr inology notes, which have been updated where appropriate, and all reflect rory price medical decision making from today. Benja Rosa MD January 09, 2021 10:32 AM Please note, the time of this note does not reflect th e time I saw this patient today, but the time of this documentation. SIGNATURE: Benja Rosa MD PATIENT NAME: Soni Cramer DATE: January 09, 2021 TIME: 10:32 AM PAGER: [phone] Basic metabolic 2000 panel on 01-08-2021 Anion gap [Moles/Vol] 9 mmol/L Normal 9-18 [facility] Comment on above: Order Comment: Specimen Type : BLOOD SPECIMEN Performed By: #### [id number] # ###[facility] [id number] [place] [address] Calcium [Mass/Vol] 9.3 mg/dL Normal 8.5-10.2 [facility] Comment on above: Order Comment: Specimen Type : BLOOD SPECIMEN Performed By: #### 53527-7 # ###[facility] [id number] [place] [address] Chloride [Moles/Vol] 103 mmol/L Normal 97-105 [facility] Comment on above: Order Comment: Specimen Type : BLOOD SPECIMEN Performed By: #### 07797-7 # ###[facility] [id number] [place] [address] CO2 [Moles/Vol] 21 mmol/L Low 22-30 [facility] Comment on above: Order Comment: Specimen Type : BLOOD SPECIMEN Performed By: #### [id number] # ###[facility] [id number] [place] [address] Creatinine [Mass/Vol] 1.87 mg/dL High 0.58-0.96 [facility] Comment on above: Order Comment: Specimen Type : BLOOD SPECIMEN Performed By: #### [id number] # ###[facility] [id number] [place] [address] GFR/1.73 sq M.predicted MDRD 33 mL/min/{1.73_m2} Normal [facility] (S/P/Bld) [Vol rate/Area] Ce nter Comment on above: Order Comment: Specimen Type : BLOOD SPECIMEN Result Comment: 27 eGFR (Estimated GFR) Units o f measure: mL/min/1.73 meters squared eGFR is derived from the ree xpressed MDRD Study equation using the following parameters: serum creatinine, age, gender and race. The creatinine assay has been calibrated to be traceable to IDMS. An eGFR <60 mL/min/1.73m2 for >3 mo nths is consistent with chronic kidney disease. Refer to KDOQI guidelines for clinical interpretation. In patients with unstable renal function, e.g. those with acute k idney injury, the eGFR may n ot accurately reflect actual GFR. Performed By: #### [id number] # ###[facility] [id number] [place] [address] Glucose [Mass/Vol] 134 mg/dL High 74-99 [facility] Comment on above: Order Comment: Specimen Type : BLOOD SPECIMEN Result Comment: The [place] [employer] (ADA) provides guidance for cutoff values for fasting glucose and random glucose. The ADA defines fasting as no caloric intake for at least 8 hours. Fas ting plasma glucose results between 100 to 125 mg/dL indicate increased risk for diabetes (prediabetes). Fasting plasma glucose resul ts greater than or equal to 126 mg/dL meet the criteria for diagnosis of diabetes. In the absence of unequivocal hyperglycemia, results should be confirmed by repeat testing. In a patient with classic s ymptoms of hyperglycemia or hyperglycemic crisis, random plasma glucose results greater than or equal to 200 mg/dL meet the criteria for diagnosis of diabetes. Reference: Standards of [facility] Care in Diabetes 2016, [place] [employer] Association. Diabetes Care. 2016.39(Suppl 1). Performed By: #### 34024-1 # ###[facility] [id number] [facility] [place] [address] Potassium [Moles/Vol] 4.5 mmol/L Normal 3.7-5.1 [facility] Comment on above: Order Comment: Specimen Type : BLOOD SPECIMEN Performed By: #### 45777-3 # ###[facility] [id number] [facility] [place] [address] Sodium [Moles/Vol] 133 mmol/L Low 136-144 [facility] Comment on above: Order Comment: Specimen Type : BLOOD SPECIMEN Performed By: #### 57488-8 # ###[facility] [id number] [facility] [place] [address] Urea nitrogen [Mass/Vol] 48 mg/dL High 7-21 [facility] Comment on above: Order Comment: Specimen Type : BLOOD SPECIMEN Performed By: #### 32446-1 # ###[facility] [id number] [place] [address] C3 COMPLEMENT BLD on 01-08-2021 Complement C3 [Mass/Vol] 114 mg/dL Normal 86-166 [facility] Comment on above: Order Comment: Specimen Type : BLOOD SPECIMEN Performed By: #### 91815-5 # ### [facility] CLIA [id number] [address] [place] [address] C4 COMPLEMENT BLD on 01-08-2021 Complement C4 [Mass/Vol] 25 mg/dL Normal 13-46 [facility] Comment on above: Order Comment: Specimen Type : BLOOD SPECIMEN Performed By: #### 32418-9 # ### [facility] CLIA [id number] [address] [place] [address] CONSULT PROG on 12-18 CONSULT PROG HNO ID: [id number] Normal [facility] Author: Benja Rosa MD Center Service: Endocrinology Author Type: Physician Type: Consult Progress Note Filed: 01/08/2021 9:53 AM Note Text: ENDOCRINOLOGY CONSULT PROGRESS NOTE SERVICE DATE: 01/08/2021 SERVICE TIME: 9:51 AM Subjective INTERVAL HISTORY OF PRESENT ILLNESS: Interval history: Soni doing ok. Still bed bound. Still with errati c PO intake. Ate around 20% of her breakfast today. No nausea or vomiti ng, but some medical anorexia. Glucoses: Yesterday; Pre-breakfast/fastin mg/dL. Pre-lunch: 132 mg/dL. Pre-supper: 130 mg/dL, Bedtime: 159 mg/dL. Today Pre-breakfast/fastin mg/dL. Current hospital insulin regimen: Basal: Insulin glargine (Lantus) 26 units, dosed in AM and 26 units dosed in PM. Prandial: Insulin?Novolin R (Regular)?10?units with me als. Supplemental with meals: Insulin?Novolin R (Regular)?s cher based on 2?unit(s) insulin per 50 mg/dL of glucose above 150 mg /dL. Supplemental at bedtime: Insulin?Novolin R (Regular)?s cher based on 2?unit(s) insulin per 50 mg/dL of glucose above 150 mg /dL.?? Previous history: Diabetes Mellitus type 2 x years. Follows with physician in [facility]. Home insulin: Humulin U-500 Regular Insulin 75 units breakfast Humulin U-500 Regular Insulin 50 units lunch Humulin U-500 Regular Insulin 50 units supper ? HbA1c 12/27/2020: 9.2% Current Facility-Administered Medications Medication Dose Route Frequency - aspirin, enteric coated 81 mg tab(s) 81 mg ORAL BRITTANI Y - sodium chloride 0.9 % (flush) 2-10 mL (BD POSIFLUSH) 2-10 mL INTRAVENOUS q 12 H - heparin 5,000 Units injection 5,000 Units SUBCUTANEO US q 12 H - sodium chloride 0.9 % (flush) 3-5 mL (BD POSIFLUSH) 3-5 mL INTRAVENOUS q 12 H - LORazepam 1 mg injection (ATIVAN) 1 mg INTRAVENOUS q 5 MIN PRN - dextrose 40 % 15 g 15 g ORAL PRN Or - glucagon 1 mg injection 1 mg INTRAMUSCULAR PRN Or - dextrose 50% in water 25 mL syringe 12.5 g INTRAVENO US PRN - hydrALAZINE 10 mg injection (APRESOLINE) 10 mg INTRA VENOUS q 6 H PRN - pill senior trainer (patient-specific) 1 Each Miscell. (Med .Supl.;Non-Drugs) PRN - ondansetron (PF) 4 mg injection (ZOFRAN) 4 mg INTRAV ENOUS q 6 H PRN - sodium chloride 0.65 % 2 Vida (AYR, OCEAN) 2 Vida EACH NOSTRIL PRN - ipratropium-albuterol 3 mL nebulizer solution (DUONE B) 3 mL INHALATION QID - acetaminophen 650 mg tab(s) (TYLENOL) 650 mg ORAL q 4 H PRN - insulin regular human injection (short acting) (Soledad KELLI R,HumuLIN R) SUBCUTANEOUS w MEALS AND HS - ipratropium-albuterol 3 mL nebulizer solution (DUONE B) 3 mL INHALATION q 6 H PRN - insulin glargine 26 Units pen (long acting) (LANTUS SOLOSTAR, BASAGLAR KWIKPEN) 26 Units SUBCUTANEOUS BID 8A/BEDTIME - insulin regular human 10 Units injection (short acti ng) (NovoLIN R,HumuLIN R) 10 Units SUBCUTANEOUS w MEALS - mirtazapine 30 mg (REMERON) 30 mg ORAL AT BEDTIME - amLODIPine 5 mg tab(s) (NORVASC) 5 mg ORAL DAILY Objective PHYSICAL EXAM: BP 151/70 Pulse 75 Temp (Src) 97.7 (Axillary) Re sp 20 Ht 5' 5.984[per previously height documentation per review of EMR[ (1.68m) Wt 313 lb 4.8 oz (142.1kg) SpO2 96% BMI 50.59 kg/(m2) . O2 Therapy: Nasal Cannula, Liters: 3 Assessment/Plan Assessment: Impression: 1.?Type 2 diabetes mellitus with hyperglycemia, with l isabela-term current use of insulin (HCC) 2. Insulin resistance. 3. Insulin long-term use. 4. Obesity with BMI >50 kg/m2 5. Medical anorexia.?Improving.? Plans: For today - continue Insulin glargine (Lantus) twice daily. - continue Novolin R (Regular) with meals - continue Novolin R (Regular) for supplemental, as ne eded. - will monitor with you. Please note: Some elements copied from previous endocr inology notes, which have been updated where appropriate, and all reflect rory price medical decision making from today. Benja Rosa MD January 08, 2021 9:51 AM Please note, the time of this note does not reflect th e time I saw this patient today, but the time of this documentation. SIGNATURE: Benja Rosa MD PATIENT NAME: Soni Cramer DATE: January 08, 2021 TIME: 9:51 AM PAGER: [phone] EOSINOPHIL SMEAR on 01-08-2021 EOSIN SMEAR 1% eosinophils present Normal No eosinophils see brian Hooperyessenia Vasquez (100 WBC counted). Medical C enter Comment on above: Order Comment: Specimen Type : URINE SPECIMEN Performed By: #### EOSSMR ## ##[facility]IA [id number] [place] [address] PROTEINASE 3 ANTIBODY on 01-08-2021 PROTEINASE 3 ANTIBODY <0.2 Normal <1.0 [facility] Comment on above: Order Comment: Specimen Type : BLOOD SPECIMEN Performed By: #### 54018-4 # ### [facility] CLIA [id number] [address] [place] [address] THERAPY NT on 2020 THERAPY NT HNO ID: [id number] Normal [facility] Author: Clemencia Barraza, PT [facility] Service: Physical Therapy Author Type: Physical Therapist Type: Therapy (PT/OT/Speech/Resp) Filed: 01/08/2021 12:43 PM Note Text: Physical Therapy Treatment SERVICE DATE: 01/08/2021 SERVICE TIME: 1116 to 1125 ROOM: [id number] Recommended Discharge Disposition: Subacute/SNF Recommended Discharge Disposition Comments: patient no t likely to be able to tolerate higher intensity rehab Recommended Discharge Disposition Due to: Patient requ ires an active, intensive rehabilitation therapy program due to:;ADL i mpairment resulting in caregiver dependence;decline in functional status r equiring daily skilled care;deficits affecting dominant side;deficits affecting non-dominant side;less than 3/5 weakness noted in:;dis jennifer LE;ongoing intervention of multiple therapy disciplines PT 6 Clicks Score: 7 Precautions/Activity Restrictions: Fall Risk;Seizure;B ed/Chair Alarm Current Hospital Course: 65 yo female found by family at home confused, pacing, and agitated. Found to have acute encephalopat hy concerning for PRES 2/2 sepsis and hypertension and possible breakthr ough seizures Reason for Hospital Admission: confusion, seizures Relevant Past Medical History: CHF, PAF, RA, seizure d isorder, CAD s/p STEMI, pressure ulcers on feet, fibromyalgia, hx of CV A, morbid obesity Response to Therapy Interventions: Low activity tolera nce, Requires additional time to complete activities Physical Therapy Problem List: Decreased Activity Tole rocky;Decreased Range Of Motion;Decreased Strength;Functional Mobility Impairment;Balance Impaired Treatment Interventions: Education;Energy Conservation Training;Strengthening;Functional Mobility Training;Ba efren Training Home Environment Patient Lives With: Family (reports lives with son, pe r chart preview sister says alone) Assistance Available: migration specialist Entry To Home: Stairs Number Of Stairs Into Home: 1 Number Of Stairs To Bed/Bath: 0 Prior Functional Level: Within Functional Limits;Requi red Assistance Assistance Required With: Transportation Prior Functional Level Comments: pt questionable selin beauchamp reports lives with son whom works and pt mobilizes without devices a nd completes ADLs herself; sister assists with transportation Patient Report: Patient sleepy but agreeable to PT CURRENT FUNCTIONAL STATUS: Most recent performance Current Functional Mobility Assist Level Additional In formation Rolling Maximal Assistance with cues to utilize bedrai l. Maximal assist to reposition in bed Supine to Sit Maximal Assistance (x2) Sit to Supine Maximal Assistance (x2) Scooting Maximal Assistance (x2) Sit to Stand Additional Information Stand to Sit Bed to Chair Toilet/Commode Gait Stairs Curb Step Car Transfer Blank davalos indicate activity not attempted Balance: Static Sitting;Dynamic Sitting Static Sitting Balance: Fair Patient able to maintain balance with handhold support, may require occasional minimal kristi tance Dynamic Sitting Balance: Poor Patient unable to accept challenge or move without loss of balance Activity Tolerance: Sitting Activity Sitting Activity: sitting EOB Sitting Activity Tolerance (in minutes): 7 JH-HLM: 2: Bed activities / dependent transfer Learning/Educational Needs: Functional Activities/Mobi lity;Rehabilitation Techniques and Procedures;Safety Goals for Plan of Care: Patient /Caregiver Goals: Other: See Comment (did not state ) Able to perform HEP with: Verbal Cues Only Transfer supine to/from sit with: Moderate Assistance Transfer sit to/from stand with: Moderate Assistance Ambulate with: Moderate Assistance Distance: 15' Device: Wheeled Walker Transfer: stand pivot transfer to chair with moderate assist Progress Toward Goals: Progressing slower than expecte d Due To: weakness fatigue Rehab Potential: Good Patient will be discontinued from Physical Therapy whe n no further skilled needs are identified in this setting. PLAN: Treatment Frequency (times per week): 5 (2-4) Current admission Plan of Care developed with: Patient TREATMENT INTERVENTIONS: Therapy Diagnosis: Reduced mobility-other;Muscle Weakn ess (generalized) Interventions Provided: Therapeutic Exercise (68421) Therapeutic Exercise (53454) Treatment Minutes: 9 $ Therapeutic Exercise (21661) Billed Units: 1 unit Patient drowsy throughout session, required cues to ke ep eyes open. Limited activity tolerance due to fatigue/drowsiness Patient completed general strengthening exercises acti ve assisted range of motion supine (ankle pump, quad set, gluteal set, heel slide, hip abd/add, straight leg raise, hip adductor squeeze) x 8-10 reps Bilateral lower extremity, with moderate assist. Training AND education provided in: Bed mobility, Exer cise program, Positioning The following therapeutic skills were used: Cues for s equencing/proper technique for activity, Cuing tactile, C (more content not included)... THERAPY NT HNO ID: [id number] [facility] Author: Myriam Yip OT/L [facility] Service: Occupational Therapy Author Type: Occupational Therapist Type: Therapy (PT/OT/Speech/Resp) Filed: 01/08/2021 2:48 PM Note Text: Occupational Therapy Treatment SERVICE DATE: 01/08/2021 SERVICE TIME: 1430 to 1441 ROOM: [place] [address] Recommended Discharge Disposition: Subacute/SNF Recommended Discharge Disposition Comments: pt complet venessa indep prior to admission; pt would benefit from acute rehab to maximi ze return to functional independence with ADLs, mobility, and cogni tion Recommended Discharge Disposition Due to: Patient requ ires daily, facility-based rehabilitation from at least one disci line due to:;ADL impairment resulting in caregiver dependence;decline i n functional status requiring daily skilled care OT 6 Clicks Score: 9 Precautions/Activity Restrictions: Fall Risk;Seizure;B ed/Chair Alarm Current Hospital Course: 65 yo female found by family at home confused, pacing, and agitated. Found to have acute encephalopat hy concerning for PRES 2/2 sepsis and hypertension and possible breakthr ough seizures Reason for Hospital Admission: confusion, seizures Relevant Past Medical History: CHF, PAF, RA, seizure d isorder, CAD s/p STEMI, pressure ulcers on feet, fibromyalgia, hx of CV A, morbid obesity Response to Therapy Interventions: Low activity tolera nce, Slow progression with ADLs/IADLs, Requires encouragement to complete activities Occupational Therapy Problem List: Cognitive Deficit;E ducation Deficit;Safety Deficits;Impaired Self Care;Decreased A ctivity Tolerance;Decreased Range Of Motion;Decreased Strength ;Functional Mobility Impairment;Balance Impaired;Edema;Pain Cognition/Communication Deficits Responsiveness: Alert Follows Commands: 1-step Commands, Cueing Needed Cueing to Follow Commands: Minimum Treatment Interventions: Education;Self Care / Home Ma nagement;Energy Conservation Training;Strengthening;Functional Mobilit y Training;Balance Training;Cognitive Training;Joint Mobility;Neuromuscul ar Re-education;Edema Management Home Environment Patient Lives With: Family (reports lives with son, pe r chart preview sister says alone) Assistance Available: migration specialist Entry To Home: Stairs Number Of Stairs Into Home: 1 Number Of Stairs To Bed/Bath: 0 Prior Functional Level: Within Functional Limits;Requi red Assistance Assistance Required With: Transportation Prior Functional Level Comments: pt questionable oracioo nito reports lives with son whom works and pt mobilizes without devices a nd completes ADLs herself; sister assists with transportation Patient Report: Pt non communicative CURRENT FUNCTIONAL STATUS: Most recent performance Current Activities of Daily Living Assist Level Additi onal Information Feeding Moderate Assistance Grooming Maximal Assistance Bathing Upper Body Maximal Assistance Bathing Lower Body Total Assistance Dressing Upper Body Maximal Assistance Dressing Lower Body Total Assistance Toileting Total Assistance Instrumental Activities of Daily Living Assist Level A dditional Information Meal/Beverage Prep Cleaning Laundry Medication Management with Strategies Functional Mobility Assist Level Additional Informatio n Rolling Maximal Assistance (x2) Supine to Sit Maximal Assistance (x2) Sit to Supine Maximal Assistance (x2) Scooting Maximal Assistance (x2) Sit to Stand Stand to Sit Bed to Chair Toilet/Commode Shower Functional Mobility Blank davalos indicate activity not attempted Balance: Static Sitting;Dynamic Sitting Static Sitting Balance: Fair Patient able to maintain balance with handhold support, may require occasional minimal kristi tance Dynamic Sitting Balance: Fair Patient accepts minimal challenge, able to maintain balance while turning head/trunk Activity Tolerance: Sitting Activity Sitting Activity: sat EOB Sitting Activity Tolerance (in minutes): 5 Learning/Educational Needs: Discharge Plan;Plan of Car e;Functional Activities/Mobility;Equipment;Safety;Self Care;Rehabil itation Techniques and Procedures Goals for Plan of Care: Patient /Caregiver Goals: Care For Self Grooming with: Minimal Assistance Upper Body Bathing with: Minimal Assistance Upper Body Dressing with: Minimal Assistance Lower Body Bathing with: Moderate Assistance Lower Body Dressing with: Moderate Assistance Toilet Hygiene with: Moderate Assistance Chair Transfer with: Moderate Assistance Toilet Transfer with: Moderate Assistance Tolerate (minutes of functional activity): 15 (ADL sit ting EOB ) Functional Activity with: Minimal Assistance Additional Goal 1: pt will follow 1 step commands 100% of the time with min cues Additional Goal 2: Maximize right/left upper extremity strength to increase independence with ADLs Increased Awareness of Cognitive Impairments as Relate d to ADL's/IADL's: Verbalized;Demonstrated (100% accuracy to orientation ) Progress [place] (more content not included)... CONSULT PROG on 12-18 CONSULT PROG HNO ID: [id number] Normal [facility] Medical Author: Benja Rosa MD Center Service: Endocrinology Author Type: Physician Type: Consult Progress Note Filed: 01/07/2021 10:07 AM Note Text: ENDOCRINOLOGY CONSULT PROGRESS NOTE SERVICE DATE: 01/07/2021 SERVICE TIME: 10:04 AM Subjective INTERVAL HISTORY OF PRESENT ILLNESS: Interval history: Soni remains on 8100. Not much change. Eating some PO. Falls asleep easily today. I was able to speak with her RN at bedside. Glucoses: Yesterday; Pre-breakfast/fastin mg/dL. Pre-lunch: 165 mg/dL. Pre-supper: 109 mg/dL, Bedtime: 100 mg/dL. Today Pre-breakfast/fastin mg/dL. Current hospital insulin regimen: Basal: Insulin glargine (Lantus) 26 units, dosed in AM and 26 units dosed in PM. Prandial: Insulin?Novolin R (Regular) 10?units with me als. Supplemental with meals: Insulin?Novolin R (Regular)?s cher based on 2?unit(s) insulin per 50 mg/dL of glucose above 150 mg /dL. Supplemental at bedtime: Insulin?Novolin R (Regular)?s cher based on 2?unit(s) insulin per 50 mg/dL of glucose above 150 mg /dL.?? Previous history: Diabetes Mellitus type 2 x years. Follows with physician in [place] area. Home insulin: Humulin U-500 Regular Insulin 75 units breakfast Humulin U-500 Regular Insulin 50 units lunch Humulin U-500 Regular Insulin 50 units supper ? HbA1c 12/27/2020: 9.2% ? Current Facility-Administered Medications Medication Dose Route Frequency - aspirin, enteric coated 81 mg tab(s) 81 mg ORAL BRITTANI Y - sodium chloride 0.9 % (flush) 2-10 mL (BD POSIFLUSH) 2-10 mL INTRAVENOUS q 12 H - heparin 5,000 Units injection 5,000 Units SUBCUTANEO US q 12 H - sodium chloride 0.9 % (flush) 3-5 mL (BD POSIFLUSH) 3-5 mL INTRAVENOUS q 12 H - LORazepam 1 mg injection (ATIVAN) 1 mg INTRAVENOUS q 5 MIN PRN - dextrose 40 % 15 g 15 g ORAL PRN Or - glucagon 1 mg injection 1 mg INTRAMUSCULAR PRN Or - dextrose 50% in water 25 mL syringe 12.5 g INTRAVENO US PRN - hydrALAZINE 10 mg injection (APRESOLINE) 10 mg INTRA VENOUS q 6 H PRN - hydrALAZINE 25 mg tab(s) (APRESOLINE) 25 mg NASOGAST TERRI q 8 H - carvedilol 12.5 mg tab(s) (COREG) 12.5 mg NASOGASTRI C BID w MEALS - pill senior trainer (patient-specific) 1 Each Miscell. (Med .Supl.;Non-Drugs) PRN - ondansetron (PF) 4 mg injection (ZOFRAN) 4 mg INTRAV ENOUS q 6 H PRN - sodium chloride 0.65 % 2 Vida (AYR, OCEAN) 2 Vida EACH NOSTRIL PRN - ipratropium-albuterol 3 mL nebulizer solution (DUONE B) 3 mL INHALATION QID - acetaminophen 650 mg tab(s) (TYLENOL) 650 mg ORAL q 4 H PRN - insulin regular human injection (short acting) (Soledad KELLI R,HumuLIN R) SUBCUTANEOUS w MEALS AND HS - ipratropium-albuterol 3 mL nebulizer solution (DUONE B) 3 mL INHALATION q 6 H PRN - insulin glargine 26 Units pen (long acting) (LANTUS SOLOSTAR, BASAGLAR KWIKPEN) 26 Units SUBCUTANEOUS BID 8A/BEDTIME - insulin regular human 10 Units injection (short acti ng) (NovoLIN R,HumuLIN R) 10 Units SUBCUTANEOUS w MEALS - mirtazapine 15 mg (REMERON) 15 mg ORAL AT BEDTIME Objective PHYSICAL EXAM: BP 137/64 Pulse 84 Temp (Src) 98.6 (Axillary) Re sp 20 Ht 5' 5.984[per previously height documentation per review of EMR[ (1.68m) Wt 313 lb 4.8 oz (142.1kg) SpO2 95% BMI 50.59 kg/(m2) . O2 Therapy: Nasal Cannula, Liters: 3 Assessment/Plan Assessment: Impression: 1.?Type 2 diabetes mellitus with hyperglycemia, with l isabela-term current use of insulin (HCC) 2. Insulin resistance. 3. Insulin long-term use. 4. Obesity with BMI >50 kg/m2 5. Medical anorexia.?Improving. Plans: For today Basal: continue Insulin glargine (Lantus) dosed twice daily. Prandial: continue Novolin R (Regular) with meals. Hol d if no PO intake. Supplemental: continue Novolin R (Regular) scale. Monitor. Please note: Some elements copied from previous endocr inology notes, which have been updated where appropriate, and all reflect rory price medical decision making from today. Benja Rosa MD January 07, 2021 10:04 AM Please note, the time of this note does not reflect th e time I saw this patient today, but the time of this documentation. SIGNATURE: Benja Rosa MD PATIENT NAME: Soni Cramer DATE: January 07, 2021 TIME: 10:04 AM PAGER: [phone] NURSING PROG on 12-18 NURSING HNO ID: [id number] Normal [facility] PROG Author: ALMA Devine Service: ? Medical Author Type: Registered Nurse Center Type: Nursing Progress Note Filed: 01/07/2021 3:15 PM Note Text: Nursing Progress Note Vital Car Ferrier Assessment Note Patient Name: Soni Cramer Patient Location: [id number]/[facility]* Patient Vitals for the past 4 hrs: BP Temp Temp src Pulse Resp SpO2 01/07/21 1500 96/78 36.8 ?C (98.2 ?F) Oral 70 18 96 % 01/07/21 1256 ? ? ? 86 18 93 % Status Change Related to: Cardiac Issues (See Nursing Clinical Assessment For Details) The Following People Were Notified: Attending Physicshira n Caregiver/Provider: Dr. Chaves See Documentation Related to: Additional Comments : to hold bp meds at this time. co ntinue to monitor. This note was completed by: Kate Aparicio RN Basic metabolic 2000 panel on 01-06-2021 Anion gap [Moles/Vol] 12 mmol/L Normal 9-18 [facility] Comment on above: Order Comment: Specimen Type : BLOOD SPECIMEN Performed By: #### 46208-8 # ### [facility] CLIA [id number] [address] [place] [address] Calcium [Mass/Vol] 9.1 mg/dL Normal 8.5-10.2 [facility] Comment on above: Order Comment: Specimen Type : BLOOD SPECIMEN Performed By: #### 03611-4 # ### [facility] CLIA [id number] [address] [place] [address] Chloride [Moles/Vol] 102 mmol/L Normal 97-105 [facility] Comment on above: Order Comment: Specimen Type : BLOOD SPECIMEN Performed By: #### 29966-9 # ### [facility] CLIA [id number] [address] [place] [address] CO2 [Moles/Vol] 20 mmol/L Low 22-30 [facility] Comment on above: Order Comment: Specimen Type : BLOOD SPECIMEN Performed By: #### 35844-3 # ### [facility] CLIA [id number] [address] [place] [address] Creatinine [Mass/Vol] 2.62 mg/dL High 0.58-0.96 [facility] Comment on above: Order Comment: Specimen Type : BLOOD SPECIMEN Performed By: #### 29424-2 # ### [facility] CLIA [id number] [address] [place] [address] GFR/1.73 sq M.predicted MDRD 22 mL/min/{1.73_m2} Normal [facility] (S/P/Bld) [Vol rate/Area] Ce nter Comment on above: Order Comment: Specimen Type : BLOOD SPECIMEN Result Comment: 18 eGFR (Estimated GFR) Units o f measure: mL/min/1.73 meters squared eGFR is derived from the ree xpressed MDRD Study equation using the following parameters: serum creatinine, age, gender and race. The creatinine assay has been calibrated to be traceable to IDMS. An eGFR <60 mL/min/1.73m2 for >3 mo nths is consistent with chronic kidney disease. Refer to KDOQI guidelines for clinical interpretation. In patients with unstable renal function, e.g. those with acute k idney injury, the eGFR may n ot accurately reflect actual GFR. Performed By: #### 44405-1 # ### [facility] CLIA [id number] [address] [place] [address] Glucose [Mass/Vol] 167 mg/dL High 74-99 [facility] Comment on above: Order Comment: Specimen Type : BLOOD SPECIMEN Result Comment: The [place] [employer] (ADA) provides guidance for cutoff values for fasting glucose and random glucose. The ADA defines fasting as no caloric intake for at least 8 hours. Fas ting plasma glucose results between 100 to 125 mg/dL indicate increased risk for diabetes (prediabetes). Fasting plasma glucose resul ts greater than or equal to 126 mg/dL meet the criteria for diagnosis of diabetes. In the absence of unequivocal hyperglycemia, results should be confirmed by repeat testing. In a patient with classic s ymptoms of hyperglycemia or hyperglycemic crisis, random plasma glucose results greater than or equal to 200 mg/dL meet the criteria for diagnosis of diabetes. Reference: Standards of [facility] Care in Diabetes 2016, [place] [employer] Association. Diabetes Care. 2016.39(Suppl 1). Performed By: #### 16452-8 # ### [facility] CLIA [id number] [address] [place] [address] Potassium [Moles/Vol] 4.8 mmol/L Normal 3.7-5.1 [facility] Comment on above: Order Comment: Specimen Type : BLOOD SPECIMEN Performed By: #### 02823-9 # ### [facility] CLIA [id number] [address] [place] [address] Sodium [Moles/Vol] 134 mmol/L Low 136-144 [facility] Comment on above: Order Comment: Specimen Type : BLOOD SPECIMEN Performed By: #### 56239-3 # ### [facility] CLIA [id number] [address] [place] [address] Urea nitrogen [Mass/Vol] 49 mg/dL High 7- [facility] Comment on above: Order Comment: Specimen Type : BLOOD SPECIMEN Performed By: #### 26858-8 # ### [facility] CLIA [id number] [address] [place] [address] CBC W Auto Differential panel (Bld) on 01-06-2021 Basophils (Bld) [#/Vol] 0.05 10*3/uL Normal <0.11 [facility] Comment on above: Order Comment: Specimen Type : BLOOD SPECIMEN Performed By: #### 97151-3 # ###[facility] [id number] [place] [address] Basophils/100 WBC (Bld) 0.3 % Normal [facility] Comment on above: Order Comment: Specimen Type : BLOOD SPECIMEN Performed By: #### 16225-1 # ###[facility] [id number] [place] [address] Differential cell count method Nom (Bld) Auto Normal [facility] Comment on above: Order Comment: Specimen Type : BLOOD SPECIMEN Performed By: #### 67366-7 # ###[facility] [id number] [place] [address] Eosinophils (Bld) [#/Vol] 0.17 10*3/uL Normal <0.46 [facility] Comment on above: Order Comment: Specimen Type : BLOOD SPECIMEN Performed By: #### 98446-6 # ###[facility] [id number] [place] [address] Eosinophils/100 WBC (Bld) 1.1 % Normal [facility] Comment on above: Order Comment: Specimen Type : BLOOD SPECIMEN Performed By: #### 92269-6 # ###[facility] [id number] [place] [address] Erythrocyte distribution width 14.4 % Normal 11.5-15.0 [facility] (RBC) [Ratio] Comment on above: Order Comment: Specimen Type : BLOOD SPECIMEN Performed By: #### 56021-2 # ###[facility] [id number] [place] [address] Hematocrit (Bld) [Volume fraction] 28.9 % Low 36.0-4 6.0 [facility] Comment on above: Order Comment: Specimen Type : BLOOD SPECIMEN Performed By: #### 23839-3 # ###[facility] [id number] [place] [address] Hemoglobin (Bld) [Mass/Vol] 9.4 g/dL Low 11.5-15.5 [facility] Comment on above: Order Comment: Specimen Type : BLOOD SPECIMEN Performed By: #### 59528-2 # ###[facility] [id number] [place] [address] IMMATURE GRAN % 0.6 % Normal [facility] Comment on above: Order Comment: Specimen Type : BLOOD SPECIMEN Performed By: #### 85854-1 # ###[facility] [id number] [place] [address] IMMATURE GRAN ABS 0.09 k/uL Normal <0.10 [facility] Comment on above: Order Comment: Specimen Type : BLOOD SPECIMEN Performed By: #### 95338-8 # ###[facility] [id number] [place] [address] Lymphocytes (Bld) [#/Vol] 0.69 10*3/uL Low 1.00-4.00 [facility] Comment on above: Order Comment: Specimen Type : BLOOD SPECIMEN Performed By: #### 10050-0 # ###[facility] [id number] [place] [address] Lymphocytes/100 WBC (Bld) 4.5 % Normal [facility] Comment on above: Order Comment: Specimen Type : BLOOD SPECIMEN Performed By: #### 11349-3 # ###[facility] [id number] [place] [address] MCH (RBC) [Entitic mass] 27.5 pg Normal 26.0-34.0 [facility] Comment on above: Order Comment: Specimen Type : BLOOD SPECIMEN Performed By: #### 54659-6 # ###[facility] [id number] [place] [address] MCHC (RBC) [Mass/Vol] 32.5 g/dL Normal 30.5-36.0 [facility] Comment on above: Order Comment: Specimen Type : BLOOD SPECIMEN Performed By: #### 87264-2 # ###[facility] [id number] [place] [address] MCV (RBC) [Entitic vol] 84.5 fL Normal 80.0-100.0 [facility] Comment on above: Order Comment: Specimen Type : BLOOD SPECIMEN Performed By: #### 74852-4 # ###[facility] [id number] [place] [address] Monocytes (Bld) [#/Vol] 1.09 10*3/uL High <0.87 [facility] Comment on above: Order Comment: Specimen Type : BLOOD SPECIMEN Performed By: #### 39278-4 # ###[facility] [id number] [place] [address] Monocytes/100 WBC (Bld) 7.1 % Normal [facility] Comment on above: Order Comment: Specimen Type : BLOOD SPECIMEN Performed By: #### 04508-5 # ###[facility] [id number] [place] [address] Neutrophils (Bld) [#/Vol] 13.33 10*3/uL High 1.45-7.50 [facility] Comment on above: Order Comment: Specimen Type : BLOOD SPECIMEN Performed By: #### 92404-8 # ###[facility] [id number] [place] [address] Neutrophils/100 WBC (Bld) 86.4 % Normal [facility] Comment on above: Order Comment: Specimen Type : BLOOD SPECIMEN Performed By: #### 57735-9 # ###[facility] [id number] [place] [address] Nucleated RBC (Bld) [#/Vol] 10*3/uL Normal <0.01 [facility] Comment on above: Order Comment: Specimen Type : BLOOD SPECIMEN Performed By: #### 65561-1 # ###[facility] [id number] [place] [address] Nucleated RBC/100 WBC (Bld) 0.0 /100 WBC Normal 0.0 [facility] [Ratio] Comment on above: Order Comment: Specimen Type : BLOOD SPECIMEN Performed By: #### 24353-9 # ###[facility] [id number] [place] [address] Platelet mean volume (Bld) 10.0 fL Normal 9.0-12.7 [facility] [Entitic vol] Comment on above: Order Comment: Specimen Type : BLOOD SPECIMEN Performed By: #### 06776-3 # ###[facility] [id number] [place] [address] Platelets (Bld) [#/Vol] 261 10*3/uL Normal 150-400 [facility] Comment on above: Order Comment: Specimen Type : BLOOD SPECIMEN Performed By: #### 12546-0 # ###[facility] [id number] [place] [address] RBC (Bld) [#/Vol] 3.42 10*6/uL Low 3.90-5.20 [facility] Comment on above: Order Comment: Specimen Type : BLOOD SPECIMEN Performed By: #### 99488-1 # ###[facility] [id number] [place] [address] WBC (Bld) [#/Vol] 15.42 10*3/uL High 3.70-11.00 [facility] Comment on above: Order Comment: Specimen Type : BLOOD SPECIMEN Performed By: #### 10249-8 # ###[facility]ORYCLIA [id number] [place] [address] CONSULT PROG on 12-18 CONSULT PROG HNO ID: [id number] Normal [facility] Author: Benja Rosa MD [place] Service: Endocrinology Author Type: Physician Type: Consult Progress Note Filed: 01/06/2021 10:23 AM Note Text: ENDOCRINOLOGY CONSULT PROGRESS NOTE SERVICE DATE: 01/06/2021 SERVICE TIME: 10:20 AM Subjective INTERVAL HISTORY OF PRESENT ILLNESS: Interval history: Soni remains in bed. On nasal cannula oxygen. Some PO intake. Glucoses: Yesterday; Pre-breakfast/fastin mg/dL. Pre-lunch: 134 mg/dL. Pre-supper: 148 mg/dL, Bedtime: 175 mg/dL. Today Pre-breakfast/fastin mg/dL. Current hospital insulin regimen: Basal: Insulin glargine (Lantus)?26?units, dosed in AM and 26?units dosed in PM. Prandial: Insulin?Novolin R (Regular) 10?units with me als. Supplemental with meals: Insulin?Novolin R (Regular)?s cher based on 2?unit(s) insulin per 50 mg/dL of glucose above 150 mg /dL. Supplemental at bedtime: Insulin?Novolin R (Regular)?s cher based on 2?unit(s) insulin per 50 mg/dL of glucose above 150 mg /dL. ?? Previous history: Diabetes Mellitus type 2 x years. Follows with physician in [place] area. Home insulin: Humulin U-500 Regular Insulin 75 units breakfast Humulin U-500 Regular Insulin 50 units lunch Humulin U-500 Regular Insulin 50 units supper ? HbA1c 12/27/2020: 9.2% Current Facility-Administered Medications Medication Dose Route Frequency - aspirin, enteric coated 81 mg tab(s) 81 mg ORAL BRITTANI Y - sodium chloride 0.9 % (flush) 2-10 mL (BD POSIFLUSH) 2-10 mL INTRAVENOUS q 12 H - heparin 5,000 Units injection 5,000 Units SUBCUTANEO US q 12 H - sodium chloride 0.9 % (flush) 3-5 mL (BD POSIFLUSH) 3-5 mL INTRAVENOUS q 12 H - LORazepam 1 mg injection (ATIVAN) 1 mg INTRAVENOUS q 5 MIN PRN - dextrose 40 % 15 g 15 g ORAL PRN Or - glucagon 1 mg injection 1 mg INTRAMUSCULAR PRN Or - dextrose 50% in water 25 mL syringe 12.5 g INTRAVENO US PRN - hydrALAZINE 10 mg injection (APRESOLINE) 10 mg INTRA VENOUS q 6 H PRN - hydrALAZINE 25 mg tab(s) (APRESOLINE) 25 mg NASOGAST TERRI q 8 H - carvedilol 12.5 mg tab(s) (COREG) 12.5 mg NASOGASTRI C BID w MEALS - pill senior trainer (patient-specific) 1 Each Miscell. (Med .Supl.;Non-Drugs) PRN - ondansetron (PF) 4 mg injection (ZOFRAN) 4 mg INTRAV ENOUS q 6 H PRN - sodium chloride 0.65 % 2 Vida (AYR, OCEAN) 2 Vida EACH NOSTRIL PRN - ipratropium-albuterol 3 mL nebulizer solution (DUONE B) 3 mL INHALATION QID - acetaminophen 650 mg tab(s) (TYLENOL) 650 mg ORAL q 4 H PRN - insulin regular human injection (short acting) (Soledad KELLI R,HumuLIN R) SUBCUTANEOUS w MEALS AND HS - ipratropium-albuterol 3 mL nebulizer solution (DUONE B) 3 mL INHALATION q 6 H PRN - cefTRIAXone 1 g in D5W 100 mL MB+ (ROCEPHIN) 1 g INT RAVENOUS q 24 H - insulin glargine 26 Units pen (long acting) (LANTUS SOLOSTAR, BASAGLAR KWIKPEN) 26 Units SUBCUTANEOUS BID 8A/BEDTIME - insulin regular human 10 Units injection (short acti ng) (NovoLIN R,HumuLIN R) 10 Units SUBCUTANEOUS w MEALS - mirtazapine 15 mg (REMERON) 15 mg ORAL AT BEDTIME Objective PHYSICAL EXAM: BP 144/71 Pulse 93 Temp (Src) 99.3 (Oral) Resp 1 6 Ht 5' 5.984[per previously height documentation per review of EMR[ (1. 68m) Wt 313 lb 4.8 oz (142.1kg) SpO2 92% BMI 50.59 kg/(m2). O2 Therapy: Nasal Cannula, Liters: 3 Assessment/Plan Assessment: Impression: 1.?Type 2 diabetes mellitus with hyperglycemia, with l isabela-term current use of insulin (HCC) 2. Insulin resistance. 3. Insulin long-term use. 4. Obesity with BMI >50 kg/m2 5. Medical anorexia.?Improving. Plans: For today: - Insulin glargine (Lantus) insulin dosed twice daily. - Novolin R (Regular) with meals and for supplemental insulin. - monitor. Please note: Some elements copied from previous endocr inology notes, which have been updated where appropriate, and all reflect rory price medical decision making from today. Benja Rosa MD January 06, 2021 10:20 AM Please note, the time of this note does not reflect th e time I saw this patient today, but the time of this documentation. SIGNATURE: Benja Rosa MD PATIENT NAME: Soni Cramer DATE: January 06, 2021 TIME: 10:20 AM PAGER: [phone] THERAPY NT on 2020 THERAPY NT HNO ID: [id number] Nando richey Author: ARCHANA Pandey/Marissa Moyer [facility] Service: Occupational Therapy Author Type: Occupational Therapist Type: Therapy (PT/OT/Speech/Resp) Filed: 01/06/2021 9:16 AM Note Text: Occupational Therapy Treatment SERVICE DATE: 01/06/2021 SERVICE TIME: 0836 to 0900 ROOM: [place] [address] Recommended Discharge Disposition: Subacute/SNF Recommended Discharge Disposition Comments: pt complet venessa indep prior to admission Recommended Discharge Disposition Due to: Patient requ ires daily, facility-based rehabilitation from at least one discip line due to:;ADL impairment resulting in caregiver dependence;decline i n functional status requiring daily skilled care OT 6 Clicks Score: 9 Precautions/Activity Restrictions: Fall Risk;Seizure;B ed/Chair Alarm Current Hospital Course: 65 yo female found by family at home confused, pacing, and agitated. Found to have acute encephalopat hy concerning for PRES 2/2 sepsis and hypertension and possible breakthr ough seizures Reason for Hospital Admission: confusion, seizures Relevant Past Medical History: CHF, PAF, RA, seizure d isorder, CAD s/p STEMI, pressure ulcers on feet, fibromyalgia, hx of CV A, morbid obesity Response to Therapy Interventions: Low activity tolera nce, Slow progression with ADLs/IADLs Continue skilled needs due to: Functional impairment, Safety concerns, Cognitive deficits Occupational Therapy Problem List: Cognitive Deficit;E ducation Deficit;Safety Deficits;Impaired Self Care;Decreased A ctivity Tolerance;Decreased Range Of Motion;Decreased Strength ;Functional Mobility Impairment;Balance Impaired;Edema;Pain Cognition/Communication Deficits Orientation Deficits: Confused Responsiveness: Awake Treatment Interventions: Education;Self Care / Home Ma nagement;Energy Conservation Training;Strengthening;Functional Mobilit y Training;Balance Training;Cognitive Training;Joint Mobility;Neuromuscul ar Re-education;Edema Management Home Environment Patient Lives With: Family (reports lives with son, pe r chart preview sister says alone) Assistance Available: migration specialist Entry To Home: Stairs Number Of Stairs Into Home: 1 Number Of Stairs To Bed/Bath: 0 Prior Functional Level: Within Functional Limits;Requi red Assistance Assistance Required With: Transportation Prior Functional Level Comments: pt questionable selin beauchamp reports lives with son whom works and pt mobilizes without devices a nd completes ADLs herself; sister assists with transportation Patient Report: Pt seen bedside, agreeable to OT, no c omplaints this a.m. CURRENT FUNCTIONAL STATUS: Most recent performance com pleted in bold Current Activities of Daily Living Assist Level Additi onal Information Feeding Moderate Assistance Grooming Maximal Assistance Bathing Upper Body Maximal Assistance Bathing Lower Body Total Assistance Dressing Upper Body Maximal Assistance Dressing Lower Body Total Assistance Toileting Total Assistance Instrumental Activities of Daily Living Assist Level A dditional Information Meal/Beverage Prep Cleaning Laundry Medication Management with Strategies Functional Mobility Assist Level Additional Informatio n Rolling Maximal Assistance (x2) Supine to Sit Maximal Assistance (x2) Sit to Supine Maximal Assistance (x2) Scooting Maximal Assistance (x2) Sit to Stand Stand to Sit Bed to Chair Toilet/Commode Shower Functional Mobility Blank davalos indicate activity not attempted Balance: Static Sitting;Dynamic Sitting Static Sitting Balance: Fair Patient able to maintain balance with handhold support, may require occasional minimal kristi tance Dynamic Sitting Balance: Fair Patient accepts minimal challenge, able to maintain balance while turning head/trunk Activity Tolerance: Sitting Activity Sitting Activity: sat EOB Sitting Activity Tolerance (in minutes): 5 Learning/Educational Needs: Discharge Plan;Plan of Car e;Functional Activities/Mobility;Equipment;Safety;Self Care;Rehabil itation Techniques and Procedures Goals for Plan of Care: Patient /Caregiver Goals: Care For Self Grooming with: Minimal Assistance Upper Body Bathing with: Minimal Assistance Upper Body Dressing with: Minimal Assistance Lower Body Bathing with: Moderate Assistance Lower Body Dressing with: Moderate Assistance Toilet Hygiene with: Moderate Assistance Chair Transfer with: Moderate Assistance Toilet Transfer with: Moderate Assistance Tolerate (minutes of functional activity): 15 (ADL sit ting EOB ) Functional Activity with: Minimal Assistance Additional Goal 1: pt will follow 1 step commands 100% of the time with min cues Additional Goal 2: Maximize right/left upper extremity strength to increase independence with ADLs Increased Awareness of Cognitive Impairments as Relate d to ADL's/IADL's: Verbalized;Demonstrated (100% accuracy to orientation ) Progress Toward Goals: Progressing slower than expecte d Due To: debility,decreased (more content not included) ... Basic metabolic 2000 panel on 01-05-2021 Anion gap [Moles/Vol] 9 mmol/L Normal 9-18 [facility] Comment on above: Order Comment: Specimen Type : BLOOD SPECIMEN Performed By: #### PROCAL ## ## [facility] LABORATORY CLIA [id number] [address] [place] [address] Calcium [Mass/Vol] 7.9 mg/dL Low 8.5-10.2 [facility] Comment on above: Order Comment: Specimen Type : BLOOD SPECIMEN Performed By: #### PROCAL ## ## [facility] CLIA [id number] [address] [place] [address] Chloride [Moles/Vol] 100 mmol/L Normal 97-105 [facility] Comment on above: Order Comment: Specimen Type : BLOOD SPECIMEN Performed By: #### PROCAL ## ## [facility] CLIA [id number] [address] [place] [address] CO2 [Moles/Vol] 19 mmol/L Low 22-30 [facility] Comment on above: Order Comment: Specimen Type : BLOOD SPECIMEN Performed By: #### PROCAL ## ## [facility] CLIA [id number] [address] [place] [address] Creatinine [Mass/Vol] 2.57 mg/dL High 0.58-0.96 [facility] Comment on above: Order Comment: Specimen Type : BLOOD SPECIMEN Performed By: #### PROCAL ## ## [facility] CLIA [id number] [address] [place] [address] GFR/1.73 sq M.predicted MDRD 23 mL/min/{1.73_m2} Normal [facility] (S/P/Bld) [Vol rate/Area] Ce nter Comment on above: Order Comment: Specimen Type : BLOOD SPECIMEN Result Comment: 19 eGFR (Estimated GFR) Units o f measure: mL/min/1.73 meters squared eGFR is derived from the ree xpressed MDRD Study equation using the following parameters: serum creatinine, age, gender and race. The creatinine assay has been calibrated to be traceable to IDMS. An eGFR <60 mL/min/1.73m2 for >3 mo nths is consistent with chronic kidney disease. Refer to KDOQI guidelines for clinical interpretation. In patients with unstable renal function, e.g. those with acute k idney injury, the eGFR may n ot accurately reflect actual GFR. Performed By: #### PROCAL ## ## [facility] CLIA [id number] [address] [place] [address] Glucose [Mass/Vol] 147 mg/dL High 74-99 [facility] Comment on above: Order Comment: Specimen Type : BLOOD SPECIMEN Result Comment: The [place] Diabetes [employer] (ADA) provides guidance for cutoff values for fasting glucose and random glucose. The ADA defines fasting as no caloric intake for at least 8 hours. Fas ting plasma glucose results between 100 to 125 mg/dL indicate increased risk for diabetes (prediabetes). Fasting plasma glucose resul ts greater than or equal to 126 mg/dL meet the criteria for diagnosis of diabetes. In the absence of unequivocal hyperglycemia, results should be confirmed by repeat testing. In a patient with classic s ymptoms of hyperglycemia or hyperglycemic crisis, random plasma glucose results greater than or equal to 200 mg/dL meet the criteria for diagnosis of diabetes. Reference: Standards of [facility] Care in Diabetes 2016, [place] [employer]. Diabetes Care. 2016.39(Suppl 1). Performed By: #### PROCAL ## ## [facility] CLIA [id number] [address] [place] [address] Potassium [Moles/Vol] 4.1 mmol/L Normal 3.7-5.1 [facility] Comment on above: Order Comment: Specimen Type : BLOOD SPECIMEN Performed By: #### PROCAL ## ## [facility] CLIA [id number] [address] [place] [address] Sodium [Moles/Vol] 128 mmol/L Low 136-144 [facility] Comment on above: Order Comment: Specimen Type : BLOOD SPECIMEN Performed By: #### PROCAL ## ## [facility] CLIA [id number] [address] [place] [address] Urea nitrogen [Mass/Vol] 43 mg/dL High 7-21 [facility] Comment on above: Order Comment: Specimen Type : BLOOD SPECIMEN Performed By: #### PROCAL ## ## [facility] CLIA [id number] [address] [place] [address] CONSULT PROG on 12-18 CONSULT PROG HNO ID: [id number] Normal [facility] Author: Benja Rosa MD Center Service: Endocrinology Author Type: Physician Type: Consult Progress Note Filed: 01/05/2021 11:06 AM Note Text: ENDOCRINOLOGY CONSULT PROGRESS NOTE SERVICE DATE: 01/05/2021 SERVICE TIME: 11:04 AM Subjective INTERVAL HISTORY OF PRESENT ILLNESS: Interval history: Soni remains in bed. PO intake remains erratic. Did not eat breakfast today (when he saw her). Glucoses: Yesterday; Pre-breakfast/fastin mg/dL. Pre-lunch: 181 mg/dL. Pre-supper: 209 mg/dL, Bedtime: 216 mg/dL. Today Pre-breakfast/fastin mg/dL. Current hospital insulin regimen: Basal: Insulin glargine (Lantus) 20 units, dosed in AM and 20 units dosed in PM. Prandial: Insulin Novolin R (Regular) 8 units with meredith ls. Supplemental with meals: Insulin Novolin R (Regular) s cher based on 2 unit(s) insulin per 50 mg/dL of glucose above 150 mg/d L. Supplemental at bedtime: Insulin Novolin R (Regular) s cher based on 2 unit(s) insulin per 50 mg/dL of glucose above 150 mg/d L. Previous history: Diabetes Mellitus type 2 x years. Follows with physician in [place] area. Home insulin: Humulin U-500 Regular Insulin 75 units breakfast Humulin U-500 Regular Insulin 50 units lunch Humulin U-500 Regular Insulin 50 units supper ? HbA1c 12/27/2020: 9.2% Current Facility-Administered Medications Medication Dose Route Frequency - aspirin, enteric coated 81 mg tab(s) 81 mg ORAL BRITTANI Y - sodium chloride 0.9 % (flush) 2-10 mL (BD POSIFLUSH) 2-10 mL INTRAVENOUS q 12 H - heparin 5,000 Units injection 5,000 Units SUBCUTANEO US q 12 H - sodium chloride 0.9 % (flush) 3-5 mL (BD POSIFLUSH) 3-5 mL INTRAVENOUS q 12 H - LORazepam 1 mg injection (ATIVAN) 1 mg INTRAVENOUS q 5 MIN PRN - dextrose 40 % 15 g 15 g ORAL PRN Or - glucagon 1 mg injection 1 mg INTRAMUSCULAR PRN Or - dextrose 50% in water 25 mL syringe 12.5 g INTRAVENO US PRN - hydrALAZINE 10 mg injection (APRESOLINE) 10 mg INTRA VENOUS q 6 H PRN - miconazole 2 % 1 application topical powder (LOTRIMI N AF, DESENEX) 1 application TOPICAL BID - hydrALAZINE 25 mg tab(s) (APRESOLINE) 25 mg NASOGAST TERRI q 8 H - carvedilol 12.5 mg tab(s) (COREG) 12.5 mg NASOGASTRI C BID w MEALS - pill senior trainer (patient-specific) 1 Each Miscell. (Med .Supl.;Non-Drugs) PRN - insulin glargine 20 Units pen (long acting) (LANTUS SOLOSTAR, BASAGLAR KWIKPEN) 20 Units SUBCUTANEOUS q 12 h 7am/7pm - ondansetron (PF) 4 mg injection (ZOFRAN) 4 mg INTRAV ENOUS q 6 H PRN - sodium chloride 0.65 % 2 Vida (AYR, OCEAN) 2 Vida EACH NOSTRIL PRN - ipratropium-albuterol 3 mL nebulizer solution (DUONE B) 3 mL INHALATION QID - acetaminophen 650 mg tab(s) (TYLENOL) 650 mg ORAL q 4 H PRN - insulin regular human injection (short acting) (Soledad KELLI R,HumuLIN R) SUBCUTANEOUS w MEALS AND HS - ipratropium-albuterol 3 mL nebulizer solution (DUONE B) 3 mL INHALATION q 6 H PRN - insulin regular human 8 Units injection (short actin g) (NovoLIN R,HumuLIN R) 8 Units SUBCUTANEOUS w MEALS - cefTRIAXone 1 g in D5W 100 mL MB+ (ROCEPHIN) 1 g INT RAVENOUS q 24 H - NaCl 0.9% iv infusion 100 mL/hr INTRAVENOUS CONTINUO US Objective PHYSICAL EXAM: BP 123/53 Pulse 74 Temp (Src) 99 (Axillary) Resp 20 Ht 5' 5.984[per previously height documentation per review of EMR[ (1.68m) Wt 313 lb 4.8 oz (142.1kg) SpO2 98% BMI 50.59 kg/(m2) . O2 Therapy: Simple Face Mask, Liters: 6 Assessment/Plan Assessment: Impression: 1.?Type 2 diabetes mellitus with hyperglycemia, with l isabela-term current use of insulin (HCC) 2. Insulin resistance. 3. Insulin long-term use. 4. Obesity with BMI >50 kg/m2 5. Tube feeding (cycled overnight 7pm to 7am)?- this w as stopped 01/02/2021.? 6. Medical anorexia. Plans: Glucoses higher. Still on much less insulin vs home use. Still with some medical anorexia. For today, Will increase insulin dosing. Monitor. Please note: Some elements copied from previous endocr inology notes, which have been updated where appropriate, and all reflect c urrent medical decision making from today. Benja Rosa MD January 05, 2021 11:04 AM Please note, the time of this note does not reflect th e time I saw this patient today, but the time of this documentation. SIGNATURE: Benja Rosa MD PATIENT NAME: Soni Cramer DATE: January 05, 2021 TIME: 11:04 AM PAGER: [phone] NUTRITION on 021 NUTRITION HNO ID: [id number] [facility] Author: Dawna Adan RD Ce nter Service: Nutrition Therapy Author Type: Registered Dietitian Type: Nutrition Filed: 01/05/2021 3:33 PM Note Text: NUTRITION THERAPY PROGRESS NOTE SERVICE DATE: 01/05/2021 SERVICE TIME: 10:45 AM Nutrition Assessment: Recommended Malnutrition Diagnosis: No Malnutrition Id entified (12/27/20 1000 : Dawna Adan RD) Estimated kilocalorie needs: 4497-7238 Calorie Calculation Method: 25-30 kcals/kg Estimated protein needs (grams): 71-89 Grams protein determined by: 1.2 - 1.5 g/kg;[place] body weight Care Plan: Continue current diet (Continue current diet (per PONY TRIMMER and 100% assistance with feeding at meals)) Supplements: Boost Glucose Control (-TID) Medications: Appetite stimulants (consider adding if n ot contraindicated for patient)-communicated to Dr. Chaves Labs: Potassium;Phosphorus;Magnesium (continue to michael tor and replace when low) Communicated to Dr. Chaves today: if po remains poor n ext 1-2 days: Recommend resume nocturnal TF to support nutritional n eeds and can adjust or discontinue based on po and supplement intake. Enteral Nutrition Tube Feeding Formula Type: Isosource 1.5 Goal Rate (mL/hr x hours): 40 mL/hr over 12 hours 7P-7 A provides 480 mL product - 720 kcal, 33 gm protein, and 367 mL free danae er - adjust based on po Water Flush Volume (mL x frequency: Flush 30 mL before start and end of TF while patient on IVF's Recommended Enteral Access: Small bore feeding tube ? Monitor and Evaluation: Monitor fluid/electrolyte rosalino nce;Meet greater than 75% of estimated needs;Monitor bowel function;Mon itor labs, I/Os, vital signs, weight Discharge Recommendations: Diet;Oral Supplements Diet: carb controlled, heart healthy and consistency/t extures per ST of Minced and Moist (L5),thin liquids Enteral/Tube Feedings: TBD Oral Supplements: Boost Glucose Control or equivalent- TID if poor po persists ? Interval History: LOS day 9. Corpak removed and TF dis continued. Endocrinology, and wound care following. ST recommende d minced and moist, thin liquids 01/02, patient previously on pureed thin l iquid diet. Labs and meds reviewed. 2-liquid BMs noted 01/04/21. Plan at dis charge is for snf. Anthropometrics: Height: 167.6 cm (5' 5.98) (per previously height doc umentation per review of EMR) Weight: (!) 142.1 kg (313 lb 4.8 oz) Dosing Weight: 59 kg (130 lb 1.1 oz) Usual Weight: (Patient not answering any qeustions- pe r wt hx appears to be mostly 285 lbs back in 07/2018) Body mass index is 50.59 kg/m?. Morbidly Obese Weight change percentage over time: Wt gain over almos t 2 years per wt hx re Intake History: Current Intake: Less than 50% estimated energy needs O margie: 3 days since TF and corpak discontinue, po per nursing reocrds 0-50%, and documented drank all of Boost at dinner 01/03, and 75% of Boost at lunch 01/02, and only ate at dinner last night of: all yogurt, and 1/2 ice cream . Spoke w/RN: Rosalba and pt did not want to eat this am, but nurse margarita was going back in after my visit and trying to feed pt. Rn and nurse margarita repo rt will encourage po/Boost to pt. I encouraged both to her today as well . Diet Orders (From admission, onward) Start Ordered 01/02/21 1200 DIET FOOD CONSISTENCY CONTROLLED START N OW Question Answer Comment Food Consistency MINCED AND MOIST (L5) Liquid Consistency THIN LIQUID (L0) 01/02/21 1153 01/02/21 1015 DIET SUPPLEMENTS START NOW Question Answer Comment Supplement 1 BOOST GLUCOSE CONTROL STRAWBERRY Supplement 1 Frequency 1. BREAKFAST Supplement 1 Frequency 5. DINNER Supplement 2 BOOST GLUCOSE CONTROL VANILLA Supplement 2 Frequency 3. LUNCH 01/02/21 1004 MNT Billing Type: Re-assess/15 min 2 units SIGNATURE: Dawna Adan RD PATIENT NAME: Soni carlos DATE: January 05, 2021 TIME: 9:12 AM PAGER: [phone] THERAPY NT on 2020 THERAPY HNO ID: [id number] [facility] Author: CANDELARIA Hassan Service: Physical Therapy Nv nick Author Type: Fitness Sales Consultant Center Type: Therapy (PT/OT/Speech/Resp) Filed: 01/05/2021 10:28 AM Note Text: Attestation signed by Clemencia Barraza PT at 01/05/2021 1 1:47 AM I reviewed and agree with the documentation correspond ing to this therapy visit. SIGNATURE: Clemencia Barraza PT DATE: January 05, 2021 TIME: 11:47 AM Physical Therapy Treatment SERVICE DATE: 01/05/2021 SERVICE TIME: 903 to 929 ROOM: [id number] Recommended Discharge Disposition: Subacute/SNF Recommended Discharge Disposition Comments: patient no t likely to be able to tolerate higher intensity rehab Recommended Discharge Disposition Due to: Patient requ ires an active, intensive rehabilitation therapy program due to:;ADL i mpairment resulting in caregiver dependence;decline in functional status r equiring daily skilled care;deficits affecting dominant side;deficits affecting non-dominant side;less than 3/5 weakness noted in:;dis jennifer LE;ongoing intervention of multiple therapy disciplines PT 6 Clicks Score: 8 Patient continues to require increased assist with all mobility tasks, patient limited by fatigue throughout therapy, recomme ndation changed from acute to subacute/SNF. Patient continues to be recomme nded for subacute/SNF to improve strength, balance, endurance, increased ambulation distances with normalize gait pattern, and increased i ndependence with functional task performance/mobility to prior level of function. Precautions/Activity Restrictions: Fall Risk;Seizure;B ed/Chair Alarm Current Hospital Course: 65 yo female found by family at home confused, pacing, and agitated. Found to have acute encephalopat hy concerning for PRES 2/2 sepsis and hypertension and possible breakthr ough seizures Reason for Hospital Admission: confusion, seizures Relevant Past Medical History: CHF, PAF, RA, seizure d isorder, CAD s/p STEMI, pressure ulcers on feet, fibromyalgia, hx of CV A, morbid obesity Response to Therapy Interventions: Good participation in activities, Low activity tolerance, Requires additional time to comple te activities Continue skilled needs due to: Functional mobility/ski ll impairments, Safety concerns Physical Therapy Problem List: Decreased Activity Tole rocky;Decreased Range Of Motion;Decreased Strength;Functional Mobility Impairment;Balance Impaired Treatment Interventions: Education;Energy Conservation Training;Strengthening;Functional Mobility Training;Ba efren Training Home Environment Patient Lives With: Family (reports lives with son, pe r chart preview sister says alone) Assistance Available: migration specialist Entry To Home: Stairs Number Of Stairs Into Home: 1 Number Of Stairs To Bed/Bath: 0 Prior Functional Level: Within Functional Limits;Requi red Assistance Assistance Required With: Transportation Prior Functional Level Comments: pt questionable selin nito reports lives with son whom works and pt mobilizes without devices a nd completes ADLs herself; sister assists with transportation CURRENT FUNCTIONAL STATUS: Most recent performance mob ility performed during session in bold, other mobility completed durin g prior session and may no longer be correct or appropriate to complete. Current Functional Mobility Assist Level Additional In formation Rolling Maximal Assistance Supine to Sit Maximal Assistance (x2) Sit to Supine Maximal Assistance (x2) Scooting Maximal Assistance (x2) Sit to Stand Additional Information Stand to Sit Bed to Chair Toilet/Commode Gait Stairs Curb Step Car Transfer Blank davalos indicate activity not attempted -M: 2: Bed activities / dependent transfer Learning/Educational Needs: Functional Activities/Mobi lity;Rehabilitation Techniques and Procedures;Safety Goals for Plan of Care: Patient /Caregiver Goals: Other: See Comment (did not state ) Able to perform HEP with: Verbal Cues Only Transfer supine to/from sit with: Moderate Assistance Transfer sit to/from stand with: Moderate Assistance Ambulate with: Moderate Assistance Distance: 15' Device: Wheeled Walker Transfer: stand pivot transfer to chair with moderate assist Progress Toward Goals: Progressing slower than expecte d Due To: weakness, fatigue Rehab Potential: Good Patient will be discontinued from Physical Therapy whe n no further skilled needs are identified in this setting. PLAN: Treatment Frequency (times per week): 5 (2-4) Current admission Plan of Care developed with: Patient TREATMENT INTERVENTIONS: Therapy Diagnosis: Reduced mobility-other;Muscle Weakn ess (generalized) Interventions Provided: Therapeutic Exercise (32176);T herapeutic Activity (45455) Therapeutic Exercise (87521) Treatment Minutes: 13 $ Therapeutic Exe (more content not included)... Basic metabolic 2000 panel on 01-04-2021 Anion gap [Moles/Vol] 11 mmol/L Normal 9-18 [facility] Comment on above: Order Comment: Specimen Type : BLOOD SPECIMEN Performed By: #### 90236-9 # ###[facility] [id number] [facility] [address] Calcium [Mass/Vol] 9.3 mg/dL Normal 8.5-10.2 [facility] Comment on above: Order Comment: Specimen Type : BLOOD SPECIMEN Performed By: #### 85591-7 # ###[facility] [id number] [place] [address] Chloride [Moles/Vol] 98 mmol/L Normal 97-105 [facility] Comment on above: Order Comment: Specimen Type : BLOOD SPECIMEN Performed By: #### 60788-6 # ###[facility] [id number] [facility] [address] CO2 [Moles/Vol] 22 mmol/L Normal 22-30 [facility] Comment on above: Order Comment: Specimen Type : BLOOD SPECIMEN Performed By: #### 56835-3 # ###[facility] [id number] [place] [address] Creatinine [Mass/Vol] 2.97 mg/dL High 0.58-0.96 [facility] Comment on above: Order Comment: Specimen Type : BLOOD SPECIMEN Performed By: #### 76197-0 # ###[facility] [id number] [place] [address] GFR/1.73 sq M.predicted MDRD 19 mL/min/{1.73_m2} Normal [facility] (S/P/Bld) [Vol rate/Area] Ce nter Comment on above: Order Comment: Specimen Type : BLOOD SPECIMEN Result Comment: 16 eGFR (Estimated GFR) Units o f measure: mL/min/1.73 meters squared eGFR is derived from the ree xpressed MDRD Study equation using the following parameters: serum creatinine, age, gender and race. The creatinine assay has been calibrated to be traceable to IDMS. An eGFR <60 mL/min/1.73m2 for >3 mo nths is consistent with chronic kidney disease. Refer to KDOQI guidelines for clinical interpretation. In patients with unstable renal function, e.g. those with acute k idney injury, the eGFR may n ot accurately reflect actual GFR. Performed By: #### 85745-0 # ###[facility] [id number] [place] [address] Glucose [Mass/Vol] 195 mg/dL High 74-99 [facility] Comment on above: Order Comment: Specimen Type : BLOOD SPECIMEN Result Comment: The [place] Diabetes Association (ADA) provides guidance for cutoff values for fasting glucose and random glucose. The ADA defines fasting as no caloric intake for at least 8 hours. Fas ting plasma glucose results between 100 to 125 mg/dL indicate increased risk for diabetes (prediabetes). Fasting plasma glucose resul ts greater than or equal to 126 mg/dL meet the criteria for diagnosis of diabetes. In the absence of unequivocal hyperglycemia, results should be confirmed by repeat testing. In a patient with classic s ymptoms of hyperglycemia or hyperglycemic crisis, random plasma glucose results greater than or equal to 200 mg/dL meet the criteria for diagnosis of diabetes. Reference: Standards of [facility] Care in Diabetes 2016, [place] [employer]. Diabetes Care. 2016.39(Suppl 1). Performed By: #### 09768-2 # ###[facility] [id number] [facility] [place] [address] Potassium [Moles/Vol] 4.5 mmol/L Normal 3.7-5.1 [facility] Comment on above: Order Comment: Specimen Type : BLOOD SPECIMEN Performed By: #### 43322-1 # ###[facility] [id number] [facility] [place] [address] Sodium [Moles/Vol] 131 mmol/L Low 136-144 [facility] Comment on above: Order Comment: Specimen Type : BLOOD SPECIMEN Performed By: #### 90166-9 # ###[facility] [id number] [facility] [place] [address] Urea nitrogen [Mass/Vol] 44 mg/dL High 7-21 [facility] Comment on above: Order Comment: Specimen Type : BLOOD SPECIMEN Performed By: #### 18582-9 # ###[facility] [id number] [place] [address] CBC W Auto Differential panel (Bld) on 01-04-2021 Basophils (Bld) [#/Vol] 0.05 10*3/uL Normal <0.11 [facility] Comment on above: Order Comment: Specimen Type : BLOOD SPECIMEN Performed By: #### 00952-1 # ### [facility] CLIA [id number] [address] [place] [address] Basophils/100 WBC (Bld) 0.4 % Normal [facility] Comment on above: Order Comment: Specimen Type : BLOOD SPECIMEN Performed By: #### 05572-0 # ### [facility] CLIA [id number] [address] [place] [address] Differential cell count method Nom (Bld) Auto Normal [facility] Comment on above: Order Comment: Specimen Type : BLOOD SPECIMEN Performed By: #### 70010-5 # ### [facility] CLIA [id number] [address] [place] [address] Eosinophils (Bld) [#/Vol] 0.32 10*3/uL Normal <0.46 [facility] Comment on above: Order Comment: Specimen Type : BLOOD SPECIMEN Performed By: #### 17348-5 # ### [facility] CLIA [id number] [address] [place] [address] Eosinophils/100 WBC (Bld) 2.4 % Normal [facility] Comment on above: Order Comment: Specimen Type : BLOOD SPECIMEN Performed By: #### 41929-9 # ### [facility] CLIA [id number] [address] [place] [address] Erythrocyte distribution width 14.6 % Normal 11.5-15.0 [facility] (RBC) [Ratio] Comment on above: Order Comment: Specimen Type : BLOOD SPECIMEN Performed By: #### 85300-8 # ### [facility] CLIA [id number] [address] [place] [address] Hematocrit (Bld) [Volume fraction] 32.1 % Low 36.0-4 6.0 [facility] Comment on above: Order Comment: Specimen Type : BLOOD SPECIMEN Performed By: #### 00191-5 # ### [facility] CLIA [id number] [address] [place] [address] Hemoglobin (Bld) [Mass/Vol] 10.5 g/dL Low 11.5-15.5 [facility] Comment on above: Order Comment: Specimen Type : BLOOD SPECIMEN Performed By: #### 68655-0 # ### [facility] CLIA [id number] [address] [place] [address] IMMATURE GRAN % 0.7 % Normal [facility] Comment on above: Order Comment: Specimen Type : BLOOD SPECIMEN Performed By: #### 09512-0 # ### [facility] CLIA [id number] [address] [place] [address] IMMATURE GRAN ABS 0.09 k/uL Normal <0.10 [facility] Comment on above: Order Comment: Specimen Type : BLOOD SPECIMEN Performed By: #### 91543-1 # ### [facility] CLIA [id number] [address] [place] [address] Lymphocytes (Bld) [#/Vol] 1.04 10*3/uL Normal 1.00-4.00 [facility] Comment on above: Order Comment: Specimen Type : BLOOD SPECIMEN Performed By: #### 64260-6 # ### [facility] CLIA [id number] [address] [place] [address] Lymphocytes/100 WBC (Bld) 7.8 % Normal [facility] Comment on above: Order Comment: Specimen Type : BLOOD SPECIMEN Performed By: #### 68792-4 # ### [facility] CLIA [id number] [address] [place] [address] MCH (RBC) [Entitic mass] 27.8 pg Normal 26.0-34.0 [facility] Comment on above: Order Comment: Specimen Type : BLOOD SPECIMEN Performed By: #### 03685-8 # ### [facility] CLIA [id number] [address] [place] [address] MCHC (RBC) [Mass/Vol] 32.7 g/dL Normal 30.5-36.0 [facility] Comment on above: Order Comment: Specimen Type : BLOOD SPECIMEN Performed By: #### 61584-5 # ### [facility] CLIA [id number] [address] [place] [address] MCV (RBC) [Entitic vol] 84.9 fL Normal 80.0-100.0 [facility] Comment on above: Order Comment: Specimen Type : BLOOD SPECIMEN Performed By: #### 21212-0 # ### [facility] CLIA [id number] [address] [place] [address] Monocytes (Bld) [#/Vol] 1.49 10*3/uL High <0.87 [facility] Comment on above: Order Comment: Specimen Type : BLOOD SPECIMEN Performed By: #### 96907-1 # ### [facility] CLIA [id number] [address] [place] [address] Monocytes/100 WBC (Bld) 11.2 % Normal [facility] Comment on above: Order Comment: Specimen Type : BLOOD SPECIMEN Performed By: #### 34139-5 # ### [facility] CLIA [id number] [address] [place] [address] Neutrophils (Bld) [#/Vol] 10.34 10*3/uL High 1.45-7.50 [facility] Comment on above: Order Comment: Specimen Type : BLOOD SPECIMEN Performed By: #### 41380-2 # ### [facility] CLIA [id number] [address] [place] [address] Neutrophils/100 WBC (Bld) 77.5 % Normal [facility] Comment on above: Order Comment: Specimen Type : BLOOD SPECIMEN Performed By: #### 29569-5 # ### [facility] CLIA [id number] [address] [place] [address] Nucleated RBC (Bld) [#/Vol] 10*3/uL Normal <0.01 [facility] Comment on above: Order Comment: Specimen Type : BLOOD SPECIMEN Performed By: #### 27728-7 # ### [facility] CLIA [id number] [address] [place] [address] Nucleated RBC/100 WBC (Bld) 0.0 /100 WBC Normal 0.0 [facility] [Ratio] Comment on above: Order Comment: Specimen Type : BLOOD SPECIMEN Performed By: #### 53002-0 # ### [facility] CLIA [id number] 1 [place] [address] Platelet mean volume (Bld) 10.2 fL Normal 9.0-12.7 [facility] [Entitic vol] Comment on above: Order Comment: Specimen Type : BLOOD SPECIMEN Performed By: #### 24624-8 # ### [facility] CLIA [id number] [address] [place] [address] Platelets (Bld) [#/Vol] 306 10*3/uL Normal 150-400 [facility] Comment on above: Order Comment: Specimen Type : BLOOD SPECIMEN Performed By: #### 14742-8 # ### [facility] CLIA [id number] [address] [place] [address] RBC (Bld) [#/Vol] 3.78 10*6/uL Low 3.90-5.20 [facility] Comment on above: Order Comment: Specimen Type : BLOOD SPECIMEN Performed By: #### 37161-6 # ### [facility] CLIA [id number] 1 [place] [address] WBC (Bld) [#/Vol] 13.33 10*3/uL High 3.70-11.00 [facility] Comment on above: Order Comment: Specimen Type : BLOOD SPECIMEN Performed By: #### 48855-6 # ### [facility] CLIA [id number] [address] [place] [id number] CONSULT PROG on 12-17 CONSULT PROG HNO ID: [id number] [facility] Author: Benja Rosa MD [place] Service: Endocrinology Author Type: Physician Type: Consult Progress Note Filed: 01/04/2021 10:56 AM Note Text: ENDOCRINOLOGY CONSULT PROGRESS NOTE SERVICE DATE: 01/04/2021 SERVICE TIME: 10:51 AM Subjective INTERVAL HISTORY OF PRESENT ILLNESS: Interval history: Soni remains monitored on a medical ortega. Not much PO intake. Did eat a yogurt for breakfast. No nausea or vomiting, but has medical anorexia. Glucoses: Yesterday; Pre-breakfast/fastin mg/dL. Pre-lunch: 150 mg/dL. Pre-supper: 190 mg/dL, Bedtime: 193 mg/dL. Today Pre-breakfast/fastin mg/dL. Current hospital insulin regimen: Basal: Insulin glargine (Lantus) 20 units, dosed in AM and 20 units dosed in PM. Prandial: Insulin Novolin R (Regular) 8 units with meredith ls. Supplemental with meals: Insulin Novolin R (Regular) s cher based on 2 unit(s) insulin per 50 mg/dL of glucose above 150 mg/d L. Supplemental at bedtime: Insulin Novolin R (Regular) s cher based on 2 unit(s) insulin per 50 mg/dL of glucose above 150 mg/d L. Previous history: Diabetes Mellitus type 2 x years. Follows with physician in [place] area. Home insulin: Humulin U-500 Regular Insulin 75 units breakfast Humulin U-500 Regular Insulin 50 units lunch Humulin U-500 Regular Insulin 50 units supper ? HbA1c 12/27/2020: 9.2% Current Facility-Administered Medications Medication Dose Route Frequency - aspirin, enteric coated 81 mg tab(s) 81 mg ORAL BRITTANI Y - sodium chloride 0.9 % (flush) 2-10 mL (BD POSIFLUSH) 2-10 mL INTRAVENOUS q 12 H - heparin 5,000 Units injection 5,000 Units SUBCUTANEO US q 12 H - sodium chloride 0.9 % (flush) 3-5 mL (BD POSIFLUSH) 3-5 mL INTRAVENOUS q 12 H - LORazepam 1 mg injection (ATIVAN) 1 mg INTRAVENOUS q 5 MIN PRN - dextrose 40 % 15 g 15 g ORAL PRN Or - glucagon 1 mg injection 1 mg INTRAMUSCULAR PRN Or - dextrose 50% in water 25 mL syringe 12.5 g INTRAVENO US PRN - hydrALAZINE 10 mg injection (APRESOLINE) 10 mg INTRA VENOUS q 6 H PRN - miconazole 2 % 1 application topical powder (LOTRIMI N AF, DESENEX) 1 application TOPICAL BID - hydrALAZINE 25 mg tab(s) (APRESOLINE) 25 mg NASOGAST TERRI q 8 H - carvedilol 12.5 mg tab(s) (COREG) 12.5 mg NASOGASTRI C BID w MEALS - pill senior trainer (patient-specific) 1 Each Miscell. (Med .Supl.;Non-Drugs) PRN - insulin glargine 20 Units pen (long acting) (LANTUS SOLOSTAR, BASAGLAR KWIKPEN) 20 Units SUBCUTANEOUS q 12 h 7am/7pm - ondansetron (PF) 4 mg injection (ZOFRAN) 4 mg INTRAV ENOUS q 6 H PRN - sodium chloride 0.65 % 2 Vida (AYR, OCEAN) 2 Vida EACH NOSTRIL PRN - ipratropium-albuterol 3 mL nebulizer solution (DUONE B) 3 mL INHALATION QID - acetaminophen 650 mg tab(s) (TYLENOL) 650 mg ORAL q 4 H PRN - insulin regular human injection (short acting) (Soledad KELLI R,HumuLIN R) SUBCUTANEOUS w MEALS AND HS - ipratropium-albuterol 3 mL nebulizer solution (DUONE B) 3 mL INHALATION q 6 H PRN - insulin regular human 8 Units injection (short actin g) (NovoLIN R,HumuLIN R) 8 Units SUBCUTANEOUS w MEALS - cefTRIAXone 1 g in D5W 100 mL MB+ (ROCEPHIN) 1 g INT RAVENOUS q 24 H - NaCl 0.9% iv infusion 100 mL/hr INTRAVENOUS CONTINUO US Objective PHYSICAL EXAM: BP 111/48 Pulse 68 Temp (Src) 99.1 (Axillary) Re sp 18 Ht 5' 5.984[per previously height documentation per review of EMR[ (1.68m) Wt 313 lb 4.8 oz (142.1kg) SpO2 96% BMI 50.59 kg/(m2) . O2 Therapy: Nasal Cannula, Liters: 3 Assessment/Plan Assessment: Impression: 1.?Type 2 diabetes mellitus with hyperglycemia, with l isabela-term current use of insulin (HCC) 2. Insulin resistance. 3. Insulin long-term use. 4. Obesity with BMI >50 kg/m2 5. Tube feeding (cycled overnight 7pm to 7am) - this w as stopped 01/02/2021. 6. Medical anorexia. Plans: Most glucoses are reasonable. For today: - continue Insulin glargine (Lantus) dosed twice daily . - continue Novolin R (Regular) programmed with meals, hold if no PO intake. - continue Novolin R (Regular) supplemental scale. - continue to hold the (home) Humulin U-500 Regular In [facility], while in [facility]. When discharged home, she will resume her Humulin U-50 0 Regular Insulin regimen (see HPI) and follow up with her [facility] sobia davis.? Please note: Some elements copied from previous endocr inology notes, which have been updated where appropriate, and all reflect rory price medical decision making from today. Benja Rosa MD January 04, 2021 10:51 AM Please note, the time of this note does not reflect th e time I saw this patient today, but the time of this documentation. SIGNATURE: Benja Rosa MD PATIENT NAME: Soni Cramer DATE: January 04, 2021 TIME: 10:51 AM PAGER: [phone] NT-proBNP [facility] on 01-04-2021 Natriuretic peptide.B prohormone 9574 pg/mL High <125 [facility]-Terminal [Mass/Vol] Comment on above: Order Comment: Specimen Type : BLOOD SPECIMEN Performed By: #### PROCAL ## ## [facility] CLIA [id number] 1 [place] [address] ALLIED HEALTH on ALLIED HEALTH HNO ID: [id number] Normal [facility] Author: RT William(R) Center Service: Radiology Author Type: Massage Coordinator Type: Allied Health Filed: 01/03/2021 9:00 AM Note Text: Radiology Service Progress Note PATIENT NAME: Soni Cramer DATE OF SERVICE: January 03, 2021 TIME: 8:59 AM PATIENT IDENTITY VERIFICATION COMPLETED USING TWO (2) IDENTIFIERS: Name and Date of confirmed by identification band. FALL SCREENING: Has the patient had 2 falls in the las t year or 1 fall with injury or currently using an Ambulatory Assistive Device (Walker, Cane, Wheelchair, Crutches, etc.)? Inpatient: Screened on floor PATIENT GENDER DATA: Female. status: Pregnan t: No status: NO. PATIENT RELEVANT IMPLANT DATA REVIEWED: Not Applicable RADIOLOGY DEPARTMENT: General X-ray: Exam(s) Completed : Chest X-Ray PERIPHERAL IV DATA: Not applicable SIGNED BY: RT William(R) January 03, 2021 8:59 AM Ammonia [facility] on 01-03-2021 Ammonia (P) [Moles/Vol] 15 umol/L Normal 11-51 [facility] Comment on above: Order Comment: Specimen Type : BLOOD SPECIMEN Performed By: #### 4091-5 ## ## [facility] CLIA [id number] 1 [place] [address] Bacteria Bld Cult on 01-03-2021 Bacteria identified Cx Nom CULTURE, BLOOD: Normal [facility] (Bld) No growth 5 days Center Comment on above: Performed By: #### 52999-5 # ### [facility] CLIA [id number] [address] [place] [address] Performed By: #### 33203-6 # ### [facility] CLIA [id number] 1 [place] [address] Basic metabolic 2000 panel on 01-03-2021 Anion gap [Moles/Vol] 14 mmol/L Normal 9-18 [facility] Comment on above: Order Comment: Specimen Type : BLOOD SPECIMEN Performed By: #### PROCAL ## ## [facility] CLIA [id number] [address] [place] [address] Calcium [Mass/Vol] 9.5 mg/dL Normal 8.5-10.2 [facility] Comment on above: Order Comment: Specimen Type : BLOOD SPECIMEN Performed By: #### PROCAL ## ## [facility] CLIA [id number] [address] [place] [address] Chloride [Moles/Vol] 98 mmol/L Normal 97-105 [facility] Comment on above: Order Comment: Specimen Type : BLOOD SPECIMEN Performed By: #### PROCAL ## ## [facility] CLIA [id number] [address] [place] [address] CO2 [Moles/Vol] 19 mmol/L Low 22-30 [facility] Comment on above: Order Comment: Specimen Type : BLOOD SPECIMEN Performed By: #### PROCAL ## ## [facility] CLIA [id number] [address] [place] [address] Creatinine [Mass/Vol] 2.95 mg/dL High 0.58-0.96 [facility] Comment on above: Order Comment: Specimen Type : BLOOD SPECIMEN Performed By: #### PROCAL ## ## [facility] CLIA [id number] [address] [place] [address] GFR/1.73 sq M.predicted MDRD 19 mL/min/{1.73_m2} Normal [facility] (S/P/Bld) [Vol rate/Area] Ce nter Comment on above: Order Comment: Specimen Type : BLOOD SPECIMEN Result Comment: 16 eGFR (Estimated GFR) Units o f measure: mL/min/1.73 meters squared eGFR is derived from the ree xpressed MDRD Study equation using the following parameters: serum creatinine, age, gender and race. The creatinine assay has been calibrated to be traceable to IDMS. An eGFR <60 mL/min/1.73m2 for >3 mo nths is consistent with chronic kidney disease. Refer to KDOQI guidelines for clinical interpretation. In patients with unstable renal function, e.g. those with acute k idney injury, the eGFR may n ot accurately reflect actual GFR. Performed By: #### PROCAL ## ## [facility] CLIA [id number] 1 [place] [address] Glucose [Mass/Vol] 177 mg/dL High 74-99 [facility] Comment on above: Order Comment: Specimen Type : BLOOD SPECIMEN Result Comment: The [place] [employer] (ADA) provides guidance for cutoff values for fasting glucose and random glucose. The ADA defines fasting as no caloric intake for at least 8 hours. Fas ting plasma glucose results between 100 to 125 mg/dL indicate increased risk for diabetes (prediabetes). Fasting plasma glucose resul ts greater than or equal to 126 mg/dL meet the criteria for diagnosis of diabetes. In the absence of unequivocal hyperglycemia, results should be confirmed by repeat testing. In a patient with classic s ymptoms of hyperglycemia or hyperglycemic crisis, random plasma glucose results greater than or equal to 200 mg/dL meet the criteria for diagnosis of diabetes. Reference: Standards of [facility] Care in Diabetes 2016, [place] [employer]. Diabetes Care. 2016.39(Suppl 1). Performed By: #### PROCAL ## ## [facility] CLIA [id number] [address] [place] [address] Potassium [Moles/Vol] 4.1 mmol/L Normal 3.7-5.1 [facility] Comment on above: Order Comment: Specimen Type : BLOOD SPECIMEN Performed By: #### PROCAL ## ## [facility] CLIA [id number] [address] [place] [address] Sodium [Moles/Vol] 131 mmol/L Low 136-144 [facility] Comment on above: Order Comment: Specimen Type : BLOOD SPECIMEN Performed By: #### PROCAL ## ## [facility] CLIA [id number] [address] [place] [address] Urea nitrogen [Mass/Vol] 41 mg/dL High 7-21 [facility] Comment on above: Order Comment: Specimen Type : BLOOD SPECIMEN Performed By: #### PROCAL ## ## [facility] CLIA [id number] [address] [place] [address] CBC panel Auto (Bld) on 01-03-2021 Erythrocyte distribution width 14.5 % Normal 11.5-15.0 [facility] (RBC) [Ratio] Comment on above: Order Comment: Specimen Type : BLOOD SPECIMEN Performed By: #### 28189-3 # ###[facility] [id number] [facility] [place] [address] Hematocrit (Bld) [Volume fraction] 33.6 % Low 36.0-4 6.0 [facility] Comment on above: Order Comment: Specimen Type : BLOOD SPECIMEN Performed By: #### 41087-9 # ###[facility] [id number] [facility] [place] [address] Hemoglobin (Bld) [Mass/Vol] 10.8 g/dL Low 11.5-15.5 [facility] Comment on above: Order Comment: Specimen Type : BLOOD SPECIMEN Performed By: #### 73353-6 # ###[facility] [id number] [facility] [place] [address] MCH (RBC) [Entitic mass] 27.3 pg Normal 26.0-34.0 [facility] Comment on above: Order Comment: Specimen Type : BLOOD SPECIMEN Performed By: #### 98493-0 # ###[facility] [id number] [place] [address] MCHC (RBC) [Mass/Vol] 32.1 g/dL Normal 30.5-36.0 [facility] Comment on above: Order Comment: Specimen Type : BLOOD SPECIMEN Performed By: #### 51159-8 # ###[facility] [id number] [place] [address] MCV (RBC) [Entitic vol] 84.8 fL Normal 80.0-100.0 [facility] Comment on above: Order Comment: Specimen Type : BLOOD SPECIMEN Performed By: #### 44092-9 # ###[facility] [id number] [place] [address] Nucleated RBC (Bld) [#/Vol] 10*3/uL Normal <0.01 [facility] Comment on above: Order Comment: Specimen Type : BLOOD SPECIMEN Performed By: #### 27553-4 # ###[facility] [id number] [place] [address] Platelet mean volume (Bld) 11.1 fL Normal 9.0-12.7 [facility] [Entitic vol] Comment on above: Order Comment: Specimen Type : BLOOD SPECIMEN Performed By: #### 80599-6 # ###[facility] [id number] [place] [address] Platelets (Bld) [#/Vol] 335 10*3/uL Normal 150-400 [facility] Comment on above: Order Comment: Specimen Type : BLOOD SPECIMEN Performed By: #### 65841-2 # ###[facility] [id number] [place] [address] RBC (Bld) [#/Vol] 3.96 10*6/uL Normal 3.90-5.20 [facility] Comment on above: Order Comment: Specimen Type : BLOOD SPECIMEN Performed By: #### 45553-6 # ###[facility] [id number] [place] [address] WBC (Bld) [#/Vol] 14.63 10*3/uL High 3.70-11.00 [facility] Comment on above: Order Comment: Specimen Type : BLOOD SPECIMEN Performed By: #### 33563-2 # ###[facility] [id number] [place] [address] CONSULT PROG on 12-17 CONSULT PROG HNO ID: [id number] [facility] Author: Benja Rosa MD [place] Service: Endocrinology Author Type: Physician Type: Consult Progress Note Filed: 01/03/2021 10:39 AM Note Text: ENDOCRINOLOGY CONSULT PROGRESS NOTE SERVICE DATE: 01/03/2021 SERVICE TIME: 10:35 AM Subjective INTERVAL HISTORY OF PRESENT ILLNESS: Interval history: Soni remains resting in her bed. Reports medical anorexia, without nausea or vomiting. Did not touch her breakfast tray when we were present in her room this [employer] discontinued last PM. Overnight tube feeds stop ped last PM. Glucoses: Yesterday; Pre-breakfast/fastin mg/dL. Pre-lunch: 209 mg/dL. Pre-supper: 243 mg/dL, Bedtime: 199 mg/dL. Today Pre-breakfast/fastin mg/dL. Current hospital insulin regimen: Basal: Insulin glargine (Lantus) 20 units, dosed in AM and 20 units dosed in PM. Prandial: none Supplemental with meals: Novolin R (Regular) scale bas ed on 2 unit(s) insulin per 50 mg/dL of glucose above 150 mg/dL. Supplemental at bedtime: Novolin R (Regular) scale bas ed on 2 unit(s) insulin per 50 mg/dL of glucose above 150 mg/dL. Previous history: Diabetes Mellitus type 2 x years. Follows with physician in [facility]. Home insulin: Humulin U-500 Regular Insulin 75 units breakfast Humulin U-500 Regular Insulin 50 units lunch Humulin U-500 Regular Insulin 50 units supper ? HbA1c 12/27/2020: 9.2% Current Facility-Administered Medications Medication Dose Route Frequency - aspirin, enteric coated 81 mg tab(s) 81 mg ORAL BRITTANI Y - sodium chloride 0.9 % (flush) 2-10 mL (BD POSIFLUSH) 2-10 mL INTRAVENOUS q 12 H - heparin 5,000 Units injection 5,000 Units SUBCUTANEO US q 12 H - sodium chloride 0.9 % (flush) 3-5 mL (BD POSIFLUSH) 3-5 mL INTRAVENOUS q 12 H - LORazepam 1 mg injection (ATIVAN) 1 mg INTRAVENOUS q 5 MIN PRN - dextrose 40 % 15 g 15 g ORAL PRN Or - glucagon 1 mg injection 1 mg INTRAMUSCULAR PRN Or - dextrose 50% in water 25 mL syringe 12.5 g INTRAVENO US PRN - hydrALAZINE 10 mg injection (APRESOLINE) 10 mg INTRA VENOUS q 6 H PRN - miconazole 2 % 1 application topical powder (LOTRIMI N AF, DESENEX) 1 application TOPICAL BID - hydrALAZINE 25 mg tab(s) (APRESOLINE) 25 mg NASOGAST TERRI q 8 H - carvedilol 12.5 mg tab(s) (COREG) 12.5 mg NASOGASTRI C BID w MEALS - pill senior trainer (patient-specific) 1 Each Miscell. (Med .Supl.;Non-Drugs) PRN - insulin glargine 20 Units pen (long acting) (LANTUS SOLOSTAR, BASAGLAR KWIKPEN) 20 Units SUBCUTANEOUS q 12 h 7am/7pm - ondansetron (PF) 4 mg injection (ZOFRAN) 4 mg INTRAV ENOUS q 6 H PRN - sodium chloride 0.65 % 2 Vida (AYR, OCEAN) 2 Vida EACH NOSTRIL PRN - ipratropium-albuterol 3 mL nebulizer solution (DUONE B) 3 mL INHALATION QID - acetaminophen 650 mg tab(s) (TYLENOL) 650 mg ORAL q 4 H PRN - insulin regular human injection (short acting) (Soledad KELLI R,HumuLIN R) SUBCUTANEOUS w MEALS AND HS - ipratropium-albuterol 3 mL nebulizer solution (DUONE B) 3 mL INHALATION q 6 H PRN Objective PHYSICAL EXAM: BP 144/62 Pulse 70 Temp (Src) 100.6 (Oral) Resp 16 Ht 5' 5.984[per previously height documentation per review of EMR[ (1.68m) Wt 313 lb 4.8 oz (142.1kg) SpO2 94% BMI 50.59 kg/(m2) . O2 Therapy: Nasal Cannula, Liters: 1 Assessment/Plan Assessment: Impression: 1. Type 2 diabetes mellitus with hyperglycemia, with l isablea-term current use of insulin (HCC) 2. Insulin resistance. 3. Insulin long-term use. 4. Obesity with BMI >50 kg/m2 5. Tube feeding (cycled overnight 7pm to 7am) - this w as stopped 01/02/2021. Plans: Will continue Insulin glargine (Lantus) dosed in AM an d PM. - this will allow some flexibility to hold a dose if needed. Can program some meal time insulin - but hold if no PO intake. When discharged home, she will resume her Humulin U-50 0 Regular Insulin regimen (see HPI) and follow up with her [place] kirsten davis. Please note: Some elements copied from previous endocr inology notes, which have been updated where appropriate, and all reflect rory price medical decision making from today. Benja Rosa MD January 03, 2021 10:35 AM Please note, the time of this note does not reflect th e time I saw this patient today, but the time of this documentation. SIGNATURE: Benja Rosa MD PATIENT NAME: Soni Cramer DATE: January 03, 2021 TIME: 10:35 AM PAGER: [phone] CONSULT PROG HNO ID: [id number] [facility] Author: Carole Persaud APRN.[facility] Center Service: Wound/Ostomy Author Type: Nurse Practitioner Type: Consult Progress Note Filed: 01/03/2021 1:20 PM Note Text: WOUND CARE PROGRESS MASTIC SPRAYER NOTE SERVICE DATE: 01/03/2021 SERVICE TIME: 10:22 TIME SPENT (minutes): 30 REASON FOR CONSULT: follow up visit to reassess skin/w ounds CHIEF COMPLAINT: No complaints of skin/wounds Subjective HISTORY OF PRESENT ILLNESS: Ms. Cramer is a 65 year old female who is seen today by Wound Care for follow up visit to reassess sk in/wounds. Patient presented to hospital with complaints of confusion and seizures. Patient was transferred from [place]. Patient has history of C HF, PAF, RA, seizure disorder, Takotsubo cardiomyopathy, CAD s/p [facility], pressure ulcers on feet, QIAN, HL, hypothyroidism, diverticulitis, firb omyalgia, hx of CVA, morbid obesity and HTN. Wound care on consult for woun ds to bilateral heels, coccyx, left foot. PERTINENT REVIEW OF SYSTEMS: GENERAL: Denies fever or chills PAIN ASSESSMENT: denies pain to feet SKIN: denies wounds RESPIRATORY: denies SOB or cough GI/: denies nausea PAST MEDICAL HISTORY Diagnosis Date - Congestive heart failure (HCC) - Coronary artery disease - Diarrhea - Diarrhea - Hypothyroidism - PMH - PAST MEDICAL HISTORY OF high cholestrol - PMH - PAST MEDICAL HISTORY OF neck injury - Seizures (HCC) 12/26/2020 - Type II or unspecified type diabetes mellitus withou t mention of complication, not stated as uncontrolled - Unspecified essential hypertension PAST SURGICAL HISTORY Procedure Laterality Date - APPENDECTOMY 1973 - COLONOSCOP W/ OR W/O BRSH SPEC 06/19/2013 Colonoscopy - COLONOSCOPY W/BX 05/27/07 - EGD W/O OR W/BRUSH/WASH 06/19/2013 EGD - EGD W/O OR W/BRUSH/WASH 02/17/15 EGD - REMOVAL GALLBLADDER Cholecystectomy Social History Tobacco Use - Smoking status: Never Smoker - Smokeless tobacco: Never Used Substance Use Topics - Alcohol use: No - Drug use: No FAMILY HISTORY Problem Relation Age of Onset - Diabetes Mother - other (Crohn's disease) Mother - other (Crohn's disease) Son - other (Bone cancer) Father - Diabetes Maternal Grandmother MEDICATIONS: Current Facility-Administered Medications Medication Dose Route Frequency - aspirin, enteric coated 81 mg tab(s) 81 mg ORAL BRITTANI Y - sodium chloride 0.9 % (flush) 2-10 mL (BD POSIFLUSH) 2-10 mL INTRAVENOUS q 12 H - heparin 5,000 Units injection 5,000 Units SUBCUTANEO US q 12 H - sodium chloride 0.9 % (flush) 3-5 mL (BD POSIFLUSH) 3-5 mL INTRAVENOUS q 12 H - LORazepam 1 mg injection (ATIVAN) 1 mg INTRAVENOUS q 5 MIN PRN - dextrose 40 % 15 g 15 g ORAL PRN Or - glucagon 1 mg injection 1 mg INTRAMUSCULAR PRN Or - dextrose 50% in water 25 mL syringe 12.5 g INTRAVENO US PRN - hydrALAZINE 10 mg injection (APRESOLINE) 10 mg INTRA VENOUS q 6 H PRN - miconazole 2 % 1 application topical powder (LOTRIMI N AF, DESENEX) 1 application TOPICAL BID - hydrALAZINE 25 mg tab(s) (APRESOLINE) 25 mg NASOGAST TERRI q 8 H - carvedilol 12.5 mg tab(s) (COREG) 12.5 mg NASOGASTRI C BID w MEALS - pill senior trainer (patient-specific) 1 Each Miscell. (Med .Supl.;Non-Drugs) PRN - insulin glargine 20 Units pen (long acting) (LANTUS SOLOSTAR, BASAGLAR KWIKPEN) 20 Units SUBCUTANEOUS q 12 h 7am/7pm - ondansetron (PF) 4 mg injection (ZOFRAN) 4 mg INTRAV ENOUS q 6 H PRN - sodium chloride 0.65 % 2 Vida (AYR, OCEAN) 2 Vida EACH NOSTRIL PRN - ipratropium-albuterol 3 mL nebulizer solution (DUONE B) 3 mL INHALATION QID - acetaminophen 650 mg tab(s) (TYLENOL) 650 mg ORAL q 4 H PRN - insulin regular human injection (short acting) (Soledad KELLI R,HumuLIN R) SUBCUTANEOUS w MEALS AND HS - ipratropium-albuterol 3 mL nebulizer solution (DUONE B) 3 mL INHALATION q 6 H PRN - insulin regular human 8 Units injection (short actin g) (NovoLIN R,HumuLIN R) 8 Units SUBCUTANEOUS w MEALS ALLERGIES Allergen Reactions - Bactrim [Sulfametho* Hives - Toradol [Ketorolac] Other: See Comments Increase BP - Ciprofloxacin Rash - Flexeril [Cyclobenz* Rash - Metformin Other: See Comments Migraines Objective PHYSICAL EXAM: BP 142/65 Pulse 75 Temp 37.5 ?C (99.5 ?F) (Axillar y) Resp 18 Ht 167.6 cm (5' 5.98) Wt (!) 142.1 kg (313 lb 4.8 o z) SpO2 92% BMI 50.59 kg/m? General appearance: Alert and cooperative, lying in ho spital bed Respiratory: no SOB or cough noted; wearing oxygen per nasal canula Cardiovascular: Faintly palpable pedal pulses bilatera ly Extremities: pressure injuries to Con heels, DFU to le ft foot Integumentary: Coccyx wound and groin DATA Labs: WBC 14.63, hemoglobin 10.8 WOUND ASSESSMENT: Wound Type: pressure- Deep tissue injury - deteriorati ng; was a stage 2 Location: left heel Present on admission: yes Measurement: 2.5 x 2.5 x 0 cm Wound Bed: blood fluid filled bulla Exudate: none Odor: none Periwound: localized erythema S/S of infection: none L (more content not included)... Gas and Carbon monoxide panel (BldV) on 01-03-2021 BASE DEFICIT, VENOUS -3.7 mmol/L Low -2-0 [facility] Comment on above: Order Comment: Specimen Type : BLOOD SPECIMEN Performed By: #### PROCAL ## ## [facility] CLIA [id number] [address] [place] [address] Body temperature 99.5 [degF] Normal [facility] Comment on above: Order Comment: Specimen Type : BLOOD SPECIMEN Performed By: #### PROCAL ## ## [facility] CLIA [id number] 1 [place] [address] CALCIUM IONIZED, PH CORRECTED 1.19 mmol/L Normal 1.08-1.30 [facility] Comment on above: Order Comment: Specimen Type : BLOOD SPECIMEN Performed By: #### PROCAL ## ## [facility] CLIA [id number] [address] [place] [address] Calcium.ionized (BldV) 1.26 mmol/L Normal 1.08-1.30 [facility] [Mass/Vol] [place] Comment on above: Order Comment: Specimen Type : BLOOD SPECIMEN Performed By: #### PROCAL ## ## [facility] CLIA [id number] [address] [place] [address] Carboxyhemoglobin (BldV) [Mass 2.5 % High 0.0-2.0 [facility] fraction] Comment on above: Order Comment: Specimen Type : BLOOD SPECIMEN Result Comment: Carboxyhemog lobin Reference Range for Smokers: 2.0-8.0% Performed By: #### PROCAL ## ## [facility] CLIA [id number] [address] [place] [address] CO2 (BldV) [Partial pressure] 48 mm[Hg] Normal 42-55 [facility] Comment on above: Order Comment: Specimen Type : BLOOD SPECIMEN Performed By: #### PROCAL ## ## [facility] CLIA [id number] [address] [place] [address] CO2 [Moles/Vol] 21.1 mmol/L Low 25-29 [facility] Comment on above: Order Comment: Specimen Type : BLOOD SPECIMEN Performed By: #### PROCAL ## ## [facility] CLIA [id number] [address] [place] [address] CO2 adjusted to patient's actual 50 mmHg Normal 42-55 [facility] temperature (BldV) [Partial pressure] Comment on above: Order Comment: Specimen Type : BLOOD SPECIMEN Performed By: #### PROCAL ## ## [facility] CLIA [id number] [address] [place] [address] Glucose [Mass/Vol] 189 mg/dL High 60-105 [facility] Comment on above: Order Comment: Specimen Type : BLOOD SPECIMEN Performed By: #### PROCAL ## ## [facility] CLIA [id number] [address] [place] [address] HCO3 (Bld) [Moles/Vol] 22.5 mmol/L Low 24-28 [facility] Comment on above: Order Comment: Specimen Type : BLOOD SPECIMEN Performed By: #### PROCAL ## ## [facility] CLIA [id number] [address] [place] [address] Hematocrit (Bld) [Volume fraction] 34.5 % Low 36.0-4 6.0 [facility] Comment on above: Order Comment: Specimen Type : BLOOD SPECIMEN Performed By: #### PROCAL ## ## [facility] CLIA [id number] [address] [place] [address] Hemoglobin (Bld) [Mass/Vol] 11.2 g/dL Low 11.5-15.5 [facility] Comment on above: Order Comment: Specimen Type : BLOOD SPECIMEN Performed By: #### PROCAL ## ## [facility] CLIA [id number] [address] [place] [address] Methemoglobin (Bld) [Mass fraction] 1.2 % Normal 0.0-1 .5 [facility] Comment on above: Order Comment: Specimen Type : BLOOD SPECIMEN Performed By: #### PROCAL ## ## [facility] CLIA [id number] [address] [place] [address] O2 THERAPY NC = Nasal Cannula Normal [facility] Comment on above: Order Comment: Specimen Type : BLOOD SPECIMEN Performed By: #### PROCAL ## ## [facility] CLIA [id number] [address] [place] [address] Oxygen (BldV) [Partial pressure] 79 mm[Hg] High 35-45 [facility] Comment on above: Order Comment: Specimen Type : BLOOD SPECIMEN Performed By: #### PROCAL ## ## [facility] CLIA [id number] [address] [place] [address] Oxygen adjusted to patient's actual 81.3 mmHg High 35-45 [facility] temperature (BldV) [Partial pressure] Comment on above: Order Comment: Specimen Type : BLOOD SPECIMEN Performed By: #### PROCAL ## ## [facility] CLIA [id number] [address] [place] [address] Oxygen saturation in Blood 94.1 % High 60-85 [facility] Comment on above: Order Comment: Specimen Type : BLOOD SPECIMEN Performed By: #### PROCAL ## ## [facility] CLIA [id number] [address] [place] [address] Oxyhemoglobin (BldV) [Mass fraction] 91 % High 60-8 5 [facility] Comment on above: Order Comment: Specimen Type : BLOOD SPECIMEN Performed By: #### PROCAL ## ## [facility] CLIA [id number] [address] [place] [address] pH (BldV) 7.29 [pH] Low 7.32-7.42 [facility] Comment on above: Order Comment: Specimen Type : BLOOD SPECIMEN Performed By: #### PROCAL ## ## [facility] CLIA [id number] [address] [place] [address] pH adjusted to patient's actual 7.28 Low 7.32-7.42 [facility] temperature (BldV) Comment on above: Order Comment: Specimen Type : BLOOD SPECIMEN Performed By: #### PROCAL ## ## [facility] CLIA [id number] [address] [place] [address] Potassium [Moles/Vol] 4.2 mmol/L Normal 3.5-5.0 [facility] Comment on above: Order Comment: Specimen Type : BLOOD SPECIMEN Performed By: #### PROCAL ## ## [facility] CLIA [id number] [address] [place] [address] Sodium [Moles/Vol] 132 mmol/L Low 136-144 [facility] Comment on above: Order Comment: Specimen Type : BLOOD SPECIMEN Performed By: #### PROCAL ## ## [facility] CLIA [id number] [address] [place] [address] UA WITH CULTURE IF INDICATED on 01-03-2021 UA WITH CULTURE IF COLOR: Abnormal [facility] INDICATED [facility] CLARITY: Cloudy GLUCOSE, URINE: Negative BILIRUBIN, URINE: Negative KETONES, URINE: Negative SPECIFIC GRAVITY, UR: 1.016 HEMOGLOBIN/BLOOD, UR: Small PH, URINE: 5.0 PROTEIN, URINE: 100 mg/dL UROBILINOGEN: 0.2 EU/dL NITRITES: Negative LEUKEST: Moderate WBC, URINE: >25 /HPF RBC, URINE: 3-5 /HPF BACTERIA: None Seen SQUAMOUS EPITHELIAL CELLS (AUWI): 1.4 HYALINE CASTS: 4-10 /LPF BUDDING YEAST (UA): Few CULTURE, URINE: No growth (<100 CFU/ml) Comment on above: Order Comment: Specimen Type : BLOOD SPECIMEN Performed By: #### [id number] # ### [facility] CLIA [id number] [address] [place] [address] XR CHEST 1V FRONTAL on 01-03-2021 XR CHEST 1V FRONTAL * * *Final Report* * * Normal [facility] DATE OF EXAM: Jan 03 2021 9:01AM [facility] AKX [id number] - XR CHEST 1V FRONTAL / PROCEDURE REASON: Fever of unknown origin * * * * Physician Interpretation * * * * EXAMINATION: CHEST RADIOGRAPH (SINGLE VIEW AP OR PA) CLINICAL HISTORY: Fever of unknown origin MQ: [id number] Comparison: Chest x-ray December 27, 2020 RESULT: Lines, tubes, and devices: Left arm PICC line with tip profiling distal superior vena cava. Lungs and pleura: No pneumothorax, pleural effusion or consolidation. Cardiomediastinal silhouette: Normal cardiomediastinal silhouette. Other: Osseous structures are unremarkable. IMPRESSION: No acute radiographic abnormality. Poll Watcher: PSCB Transcribe Date/Time: Jan 03 2021 9:23A Dictated by : AILYN CHURCH MD This examination was interpreted and the report review ed and electronically signed by: AILYN CHURCH MD on Jan 03 2021 9:24AM EST [id number] CORONAVIRUS on 01-02-2021 SARS-CoV-2 (COVID-19) RNA COVID 19 SOURCE ENGLISH AS A SECOND LANGUAGE INSTRUCTOR: Normal [facility] MARIA G+probe Ql (Unsp spec) UPPER RESPIRATORY TRACT [facility] Center COVID 19 RESULT ENGLISH AS A SECOND LANGUAGE INSTRUCTOR: Negative for COVID19 (SARS CoV2) by RT-PCR or equivale nt method. This test was developed and its performance characteristics determined by [facility] [place]. This test has been authorized by FDA under an Emergency Use Authorization (EUA). This test has been validated in accordance with the FDA's Guidance Document Policy for Diagnostics Testing in Laboratories Certified to Perform High Complexity Testing under CLIA prior to Emergency use Authorization for Coronavir us Disease 2019 during the Public Health Emergency issued on October 17, 2019. Test performed by [facility], [facility] [place], [address] [place] [address]. Comment on above: Performed By: #### 08928-2 # ### [facility] CLIA [id number] [address] [place] [address] Basic metabolic 2000 panel on 01-02-2021 Anion gap [Moles/Vol] 12 mmol/L Normal 9-18 [facility] Comment on above: Order Comment: Specimen Type : BLOOD SPECIMEN Performed By: #### PROCAL ## ## [facility] CLIA [id number] [address] [place] [address] Calcium [Mass/Vol] 9.3 mg/dL Normal 8.5-10.2 [facility] Comment on above: Order Comment: Specimen Type : BLOOD SPECIMEN Performed By: #### PROCAL ## ## [facility] CLIA [id number] [address] [place] [address] Chloride [Moles/Vol] 100 mmol/L Normal 97-105 [facility] Comment on above: Order Comment: Specimen Type : BLOOD SPECIMEN Performed By: #### PROCAL ## ## [facility] CLIA [id number] [address] [place] [address] CO2 [Moles/Vol] 20 mmol/L Low 22-30 [facility] Comment on above: Order Comment: Specimen Type : BLOOD SPECIMEN Performed By: #### PROCAL ## ## [facility] CLIA [id number] [address] [place] [address] Creatinine [Mass/Vol] 2.89 mg/dL High 0.58-0.96 [facility] Comment on above: Order Comment: Specimen Type : BLOOD SPECIMEN Performed By: #### PROCAL ## ## [facility] CLIA [id number] [address] [place] [address] GFR/1.73 sq M.predicted MDRD 20 mL/min/{1.73_m2} Normal [facility] (S/P/Bld) [Vol rate/Area] Ce nter Comment on above: Order Comment: Specimen Type : BLOOD SPECIMEN Result Comment: 16 eGFR (Estimated GFR) Units o f measure: mL/min/1.73 meters squared eGFR is derived from the ree xpressed MDRD Study equation using the following parameters: serum creatinine, age, gender and race. The creatinine assay has been calibrated to be traceable to IDMS. An eGFR <60 mL/min/1.73m2 for >3 mo nths is consistent with chronic kidney disease. Refer to KDOQI guidelines for clinical interpretation. In patients with unstable renal function, e.g. those with acute k idney injury, the eGFR may n ot accurately reflect actual GFR. Performed By: #### PROCAL ## ## [facility] CLIA [id number] [address] [place] [address] Glucose [Mass/Vol] 218 mg/dL High 74-99 [facility] Comment on above: Order Comment: Specimen Type : BLOOD SPECIMEN Result Comment: The [place] Diabetes Association (ADA) provides guidance for cutoff values for fasting glucose and random glucose. The ADA defines fasting as no caloric intake for at least 8 hours. Fas ting plasma glucose results between 100 to 125 mg/dL indicate increased risk for diabetes (prediabetes). Fasting plasma glucose resul ts greater than or equal to 126 mg/dL meet the criteria for diagnosis of diabetes. In the absence of unequivocal hyperglycemia, results should be confirmed by repeat testing. In a patient with classic s ymptoms of hyperglycemia or hyperglycemic crisis, random plasma glucose results greater than or equal to 200 mg/dL meet the criteria for diagnosis of diabetes. Reference: Standards of [facility] Care in Diabetes 2016, [place] [employer] Association. Diabetes Care. 2016.39(Suppl 1). Performed By: #### PROCAL ## ## [facility] CLIA [id number] [address] [place] [address] Potassium [Moles/Vol] 4.1 mmol/L Normal 3.7-5.1 [facility] Comment on above: Order Comment: Specimen Type : BLOOD SPECIMEN Performed By: #### PROCAL ## ## [facility] CLIA [id number] 1 [place] [id number] Sodium [Moles/Vol] 132 mmol/L Low 136-144 [facility] Comment on above: Order Comment: Specimen Type : BLOOD SPECIMEN Performed By: #### PROCAL ## ## [facility] CLIA [id number] 1 [place] [id number] Urea nitrogen [Mass/Vol] 40 mg/dL High 7-21 [facility] Comment on above: Order Comment: Specimen Type : BLOOD SPECIMEN Performed By: #### PROCAL ## ## [facility] CLIA [id number] 1 [place] [address] CONSULT PROG on 12-17 CONSULT PROG HNO ID: [id number] Normal [facility] Author: Belkis Romeo APRN.[facility] Center Service: Neurology ICU Author Type: Nurse Practitioner Type: Consult Progress Note Filed: 01/02/2021 9:07 AM Note Text: NEUROLOGY CONSULT PROGRESS NOTE SERVICE DATE: 01/02/2021 SERVICE TIME: 0730 Current Attending Provider: Ilene Lopez DO Subjective Interval History: Patient awake in bed. C/o stuffed nosed asking for chris al spray. Pt was told pharmacy needs to send it up. Objective Physical Examination: Neurological: GENERAL: Awake/easily arousable NEUROLOGICAL: MENTAL STATUS: Alert, oriented to person, place and ti me, Follows commands and Speech fluent and appropriate CRANIAL NERVES: PERRLA, EOM's intact, Face symmetric, No facial droop or ptosis and No dysarthria MOTOR: HOANG x 4 gen weakness REFLEXES: Not assessed SENSATION: Intact light touch COORDINATION: Finger-to- nose-finger intact bilaterall y New Labs: WBC Date Value 12/30/2020 12.51 k/uL 12/29/2020 14.60 k/uL 12/28/2020 18.30 k/uL 04/29/2015 10.8 thou/cmm 04/28/2015 12.9 thou/cmm 04/26/2015 8.4 thou/cmm RBC Date Value 12/30/2020 4.61 m/uL 12/29/2020 4.63 m/uL 12/28/2020 4.93 m/uL 04/29/2015 3.65 mil/cmm 04/28/2015 3.67 mil/cmm 04/26/2015 3.77 mil/cmm Platelet Count Date Value 12/30/2020 308 k/uL 12/29/2020 302 k/uL 12/28/2020 258 k/uL 04/29/2015 336 thou/cmm 04/28/2015 330 thou/cmm 04/26/2015 310 thou/cmm BUN (mg/dL) Date Value 01/01/2021 39 12/31/2020 36 12/30/2020 27 04/28/2015 5 04/27/2015 5 04/26/2015 6 Creatinine (mg/dL) Date Value 01/01/2021 2.82 12/31/2020 2.48 12/30/2020 1.97 04/28/2015 0.87 04/27/2015 0.86 04/26/2015 0.81 CBC, Coags, BMP, Mg, Phos Recent Labs 01/01/21 0452 12/31/20 0321 NA 135* 134* K 4.0 3.6* CHLOR 105 101 CO2 23 24 GLUC 147* 228* CA 9.0 8.9 Liver Function, Amylase, AND Lipase DATA: Diagnostic tests reviewed for today's visit: Most recent labs and imaging results. Impression/Recommendations Principal Problem: Encephalopathy- resolved MRI brain consistent with PRES, per Dr. Ro's review , likely 2/2 hypertensive encephalopathy and or sepsis patient was being treated for meningitis/encephalitis at [place] Echo EF 65%, no infective endocarditis H/o seizure BEM- no seizures noted No AED at home No further workup from neuro standpoint. Will s/o SIGNATURE: Belkis Romeo APRN.CNP PATIENT NAME: Soni Cramer DATE: January 02, 2021 TIME: 9:02 AM Part of the above documentation was copied from previo us notes. I have reviewed and verified [facility] and made updates where appropriate. CONSULT PROG HNO ID: [id number] Normal [facility] Author: Benja Rosa MD Center Service: Endocrinology Author Type: Physician Type: Consult Progress Note Filed: 01/02/2021 10:37 AM Note Text: ENDOCRINOLOGY CONSULT PROGRESS NOTE SERVICE DATE: 01/02/2021 SERVICE TIME: 10:31 AM Subjective INTERVAL HISTORY OF PRESENT ILLNESS: Interval history: Soni was doing ok this AM, other than some shortnes s of breath. Was asking for breathing treatment (we spoke with RN elijah fang and working with primary team on orders) Glucoses (done every 6 hours): Yesterday; Late AM: 154 mg/dL. Mid day: 155 mg/dL. Late-afternoon/early evenin mg/dL. Today: Midnight/early AM 130 mg/dL. Late AM: 185 mg/dL. Current hospital insulin regimen: Basal: Insulin glargine (Lantus) 20 units dosed at 070 0 AM and 20 dosed at 1900 PM. Prandial: none at this time. Short acting insulin q6 hours while on tube feeds/TPN: Novolin R (Regular) 16 units dosed at 1900 at start of tube feeds, and als o at 0100, during tube feeds, (can hold if tube feeds/TPN off.) Supplemental dosed q6 hours: Novolin R (Regular) scale based on 2 unit(s) insulin per 50 mg/dL of glucose above 150 mg/dL. Previous history: Diabetes Mellitus type 2 x years. Follows with physician in [facility]. Home insulin: Humulin U-500 Regular Insulin 75 units breakfast Humulin U-500 Regular Insulin 50 units lunch Humulin U-500 Regular Insulin 50 units supper HbA1c 12/27/2020: 9.2% Current Facility-Administered Medications Medication Dose Route Frequency - aspirin, enteric coated 81 mg tab(s) 81 mg ORAL BRITTANI Y - sodium chloride 0.9 % (flush) 2-10 mL (BD POSIFLUSH) 2-10 mL INTRAVENOUS q 12 H - heparin 5,000 Units injection 5,000 Units SUBCUTANEO US q 12 H - sodium chloride 0.9 % (flush) 3-5 mL (BD POSIFLUSH) 3-5 mL INTRAVENOUS q 12 H - LORazepam 1 mg injection (ATIVAN) 1 mg INTRAVENOUS q 5 MIN PRN - dextrose 40 % 15 g 15 g ORAL PRN Or - glucagon 1 mg injection 1 mg INTRAMUSCULAR PRN Or - dextrose 50% in water 25 mL syringe 12.5 g INTRAVENO US PRN - hydrALAZINE 10 mg injection (APRESOLINE) 10 mg INTRA VENOUS q 6 H PRN - miconazole 2 % 1 application topical powder (LOTRIMI N AF, DESENEX) 1 application TOPICAL BID - insulin regular human injection (short acting) (Soledad KELLI R,HumuLIN R) SUBCUTANEOUS q 6 H - hydrALAZINE 25 mg tab(s) (APRESOLINE) 25 mg NASOGAST TERRI q 8 H - carvedilol 12.5 mg tab(s) (COREG) 12.5 mg NASOGASTRI C BID w MEALS - pill senior trainer (patient-specific) 1 Each Miscell. (Med .Supl.;Non-Drugs) PRN - insulin regular human 16 Units injection (short acti ng) (NovoLIN R,HumuLIN R) 16 Units SUBCUTANEOUS 2 times per day - insulin glargine 20 Units pen (long acting) (LANTUS SOLOSTAR, BASAGLAR KWIKPEN) 20 Units SUBCUTANEOUS q 12 h 7am/7pm - ondansetron (PF) 4 mg injection (ZOFRAN) 4 mg INTRAV ENOUS q 6 H PRN - sodium chloride 0.65 % 2 Vida (AYR, OCEAN) 2 Vida EACH NOSTRIL PRN - ipratropium-albuterol 3 mL nebulizer solution (DUONE B) 3 mL INHALATION QID - acetaminophen 650 mg tab(s) (TYLENOL) 650 mg ORAL q 4 H PRN Objective PHYSICAL EXAM: BP 170/73 Pulse 90 Temp (Src) 99.7 (Oral) Resp 2 4 Ht 5' 5.984[per previously height documentation per review of EMR[ (1. 68m) Wt 313 lb 4.8 oz (142.1kg) SpO2 94% BMI 50.59 kg/(m2). O2 Therapy: Nasal Cannula, Liters: 1 Assessment/Plan Assessment: Impression: 1. Type 2 diabetes mellitus with hyperglycemia, with l isabela-term current use of insulin (HCC) 2. Insulin resistance. 3. Insulin long-term use. 4. Obesity with BMI >50 kg/m2 5. Tube feeding (cycled overnight 7pm to 7am) Plans: On an atypical regimen and dosing pattern- that is bas ed on the cycled tube feeds overnight. The current regimen is working well and her glycemia i s mostly at goal. Thus, will continue the current insulin and monitor. When discharged home, she will resume her Humulin U-50 0 Regular Insulin regimen (see HPI) and follow up with her [place] kirsten davis. Please note: Some elements copied from previous endocr inology notes, which have been updated where appropriate, and all reflect rory price medical decision making from today. Benja Rosa MD January 02, 2021 10:31 AM Please note, the time of this note does not reflect th e time I saw this patient today, but the time of this documentation. SIGNATURE: Benja Rosa MD PATIENT NAME: Soni Cramer DATE: January 02, 2021 TIME: 10:31 AM PAGER: [phone] NURSING PROG on 12-17 NURSING HNO ID: [id number] [facility] Author: Kate Aparicio RN neral Service: ? Medical Author Type: Registered Nurse Center Type: Nursing Progress Note Filed: 01/02/2021 8:53 AM Note Text: Nursing Progress Note Vital Car Ferrier Assessment Note Patient Name: Soni Cramer Patient Location: [place] [address] [address]* Patient Vitals for the past 4 hrs: BP Temp Temp src Pulse Resp SpO2 01/02/21 0740 ? 95 % 01/02/21 0721 170/73 37.6 ?C (99.7 ?F) Oral 89 20 94 % Status Change Related to: Respiratory;Cardiac Issues (See Nursing Clinical Assessment For Details) The Following People Were Notified: Attending Physicia n Caregiver/Provider: Dr. Lopez See Documentation Related to: Additional Comments : patient states she feels stuffe d up patient has audiable inspratory and expratory wheezing. Patient st ates she is coghing up flem. Notified Dr. Lopez, also of patients bp. Sche duled medications given, will recheck and administer PRN meds for BP if needed. stated she would place orders. continue to monitor. This note was completed by: Kate Aparicio RN NURSING HNO ID: [id number] Normal [facility] Author: Kate Aparicio RN [facility] Service: ? Medical Author Type: Registered Nurse Center Type: Nursing Progress Note Filed: 01/02/2021 5:37 PM Note Text: Nursing Progress Note Patient Name: Soni Cramer Patient Location: [place] [address]/[id number]- Daily Note: Page out to Dr. Rosa for insulin orders due to tube feeding discontinued. Spoke with yelitza Briseno to hold sched uled insulin that was ordered and check bs checks ACHS until Dr. Rosa pages back. Continue to monitor. This note was completed by: Kate Aparicio NUTRITION on 021 NUTRITION HNO ID: [id number] [facility] Author: Dawna Adan RD Ce nter Service: Nutrition Therapy Author Type: Registered Dietitian Type: Nutrition Filed: 01/02/2021 1:47 PM Note Text: NUTRITION THERAPY PROGRESS NOTE SERVICE DATE: 01/02/2021 SERVICE TIME: 9:40 AM Nutrition Assessment: Recommended Malnutrition Diagnosis: No Malnutrition Id entified (12/27/20 1000 : Dawna Adan RD) Estimated kilocalorie needs: [id number] Calorie Calculation Method: 25-30 kcals/kg Estimated protein needs (grams): 71-89 Grams protein determined by: 1.2 - 1.5 g/kg;[place] body weight Care Plan: Continue current diet (per PONY TRIMMER and 100% assistance wit h feeding at meals) Supplements: Boost Glucose Control (-TID) ? Recommend continue nocturnal TF to support po intake a nd adjust as po and supplements tolerated ? Enteral Nutrition Tube Feeding Formula Type: Isosource 1.5 Goal Rate (mL/hr x hours): 40 mL/hr over 12 hours 7P-7 A provides 480 mL product - 720 kcal, 33 gm protein, and 367 mL free danae er - adjust based on po Water Flush Volume (mL x frequency: Flush 60 mL every 4 hours and adjust based on po Recommended Enteral Access: Small bore feeding tube Monitor and Evaluation: Monitor fluid/electrolyte rosalino nce;Meet greater than 75% of estimated needs;Monitor bowel function;Mon itor tolerance to tube feeding;Monitor labs, I/Os, vital signs, weight Discharge Recommendations: Diet;Enteral Tube Feeding Diet: carb controlled, heart healthy and consistency/t extures per ST of Pureed (L4) thin liquids Enteral/Tube Feedings: TBD Interval History: LOS day 6. Nephrology, endocrinology , ST continue to follow. Diet per ST and continues on nocturnal TF star patrick 12/30/ pm. Patient was on TF continuous started 12/28, and stopped 12/29, and diet started on 12/29, then nocturnal TF started on 12/29. Anthropometrics: Height: 167.6 cm (5' 5.98) (per previously height doc umentation per review of EMR) Weight: (!) 142.1 kg (313 lb 4.8 oz) Dosing Weight: 59 kg (130 lb 1.1 oz) Usual Weight: (Patient not answering any qeustions- pe r wt hx appears to be mostly 285 lbs back in 07/2018) Body mass index is 50.59 kg/m?. Morbidly Obese Weight change percentage over time: Wt gain over almos t 2 years per wt hx re Intake History: Current Intake: Less than 50% estimated energy needs ( /=) Over: 3-4 days, with TF and po intake. Breakfast tray at bedside at vi sit today and pt had eaten 1/2 of pureed tuvaluan toast and drank 2 4 oz. ric le juices. Po intake at meals per nursing has been 0-15% since 12/31. Ecoura ged po to pt today and pt agreed to try Boost GCC-TID. Diet Orders (From admission, onward) Start Ordered 12/30/20 0845 DIET TUBE FEED - INTERMIT WITH TRAY STAR T NOW Question Answer Comment TF Product (26 years and up) ISOSOURCE 1.5 TF Total mL per 24 hours 480 TF Intermittent Start Time 7:00 PM TF Intermittent End Time 7:00 AM TF Goal Rate (mL/hr) 40 TF Water Flush Amount (mL) 60 TF Water Flush Frequency Every 4 Hours Carbohydrate Control 3-5 CARBS/MEAL Food Consistency PUREED (L4) Liquid Consistency THIN LIQUID (L0) 12/30/20 0838 MNT Billing Type: Re-assess/15 min 2 units SIGNATURE: Dawna Adan RD PATIENT NAME: Soni carlos DATE: January 02, 2021 TIME: 9:07 AM PAGER: [phone] THERAPY NT on 2020 THERAPY NT HNO ID: [id number] Normal [facility] Medical Author: Linda Beltran [facility] Service: Speech/Swallow Author Type: Speech Language Pathologist Type: Therapy (PT/OT/Speech/Resp) Filed: 01/02/2021 11:37 AM Note Text: Speech Therapy Speech Evaluation, Treatment SERVICE DATE: 01/02/2021 SERVICE TIME: 1045 to 1110 ROOM: [place] [address] IMPRESSION: Communication deficits identified: Expressive aphasia, Receptive aphasia, Cognitive deficits Swallow Deficits Identified / Suspected: Oropharyngeal dysphagia - more awake and dentures now at hospital. Patient is better able to chew; recommend upgrade to the modified diet mentioned below . Diet Recommendations: Minced and Moist IDDSI Level 5 Thin Liquids IDDSI Level 0 Medications crushed in puree (pudding/applesauce) Swallowing Precautions Recommendations: 1:1 Supervision Alert (patient should be fully alert for P.O. intake) Feed / Eat at a slow rate Sit upright 90 degrees for all PO Small Bite/Sip Rigid Oral Hygiene Nursing Recommendations: Reinforce use of swallowing s trategies;Simplify commands to 1 step Recommended Discharge Disposition: Acute Rehab Justification for Recommended Discharge Disposition: P atient requires an intensive inpatient rehabilitation therapy program due to:;dysphagia requiring frequent assessment and diet modification;ne w/worsened cognitive deficits related to current diagnosis;expressive langu age/communication deficits;receptive language/communication deficits Current Hospital Course: 12/27 MRI Brain: abnormal T2/F LAIR signal within bilateral posterior parietal lobes, bilateral medial o ccipital lobes, and to lesser degree bilateral anterior frontal lobes near the vertex - differentials include PRES or encephalitis/meningitis; Chest xray: no acute abnormality Reason for Hospital Admission: confusion, seizures Rehabilitation Precautions: Aspiration Precautions;Dys phagia;Modified Diet;Cognitive Linguistics Deficits NPO Precautions: Small Bore Feeding Tube Reason for Speech Therapy Consult: Confusion, dysphagi a Relevant Past Medical History: CAD, DM 2 Response to Therapy Interventions: Confusion interfere s with education, Fatigue Continue skilled [facility] services due to : Communication d ifficulties, Dysphagia Speech Therapy Problem List: Dysphagia;Cognitive-Lingu istic Impairment Patient Report: My sister brought my dentures in. Current Status Oral Hygiene: Clear, moist oral cavity Dentition: Denture-Upper Full (no lower teeth) Current Feeding Method: Oral, Small Bore Feeding Tube Current Diet Textures: Pureed IDDSI Level 4, Thin Liqu ids IDDSI Level 0, Medications crushed in puree (pudding/applesauce) Current Level Of Communication: Verbal Current Management Of Secretions: Able to self-manage Speech/Voice/Language Speech Production: Within Functional Limits Expressive and Receptive Language: Auditory Comprehension Deficits: 1-Step Commands - (%): 50 2-Step Commands - (%): 0 Picture Identification ? (%): 50 Verbal Expression Deficits: Answers ?wh? questions ? (%): 25 Automatic Speech ? (%): 50 Confrontational Naming ? (%): 75 Conversational Speech ? (%): 50 Expressing Basic Needs/Wants ? (%): 50 Repetition/Imitation ? (%): 50 Reading Comprehension Deficits: Word, Sentence Word (%): 75 Sentence (%): 25 The Orientation Log (O-Log) is designed to be a quick quantitative measure of orientation status for use at the bedside with [facility]. Place, time, and situational (Etiology/Muriel nt + Pathology/Deficits) domains are assessed. Patient resp onses are scored according to the following criteria: 3 = correct spontaneously or upon first free recall at tempt 2 = correct upon logical cueing (e.g., That was yeste rday, so today must be...) 1 = correct upon multiple choice or phonemic cueing 0 = incorrect despite cueing, inappropriate response, or unable to respond Stimulus Response/Score City 08/[address] 10/19 Name of Hospital 10/19 Month 2 Date 08/21 Year 08/21 Day of Week 08/21 Clock Time 08/21 Etiology/Event 0 Pathology/Deficits Total Patient is slow to respond to follow directions and sl ow to verbalize Swallow Position Of Patient During Assessment: Upright In Bed Consistencies Presented: Thin Liquids IDDSI Level 0, P ureed IDDSI Level 4, Minced and Moist IDDSI Level 5 Response to Consistencies Presented: more alert and ab le to attend to task of chewing; dentures now present also Patient is awake and able to participate with feeding Slow to respond overall She is aware that upper denture was brought to [facility] by family and together we put upper plate into her mouth Patient demonstrates slow but appropriate chewing; gre ater success when moistening agent (applesauce) added to the dry solid Recommend upgrade diet to a minced texture of food Patient will benefit from Speech Therapy to improve co gnition, verbal responses, auditory comprehension and di (more content not included)... THERAPY NT HNO ID: [id number] [facility] Author: CANDELARIA Hassaner Service: Physical Therapy Author Type: Fitness Sales Consultant Type: Therapy (PT/OT/Speech/Resp) Filed: 01/02/2021 2:32 PM Note Text: Attestation signed by Clemencia Barraza PT at 01/02/2021 4 :16 PM I reviewed and agree with the documentation correspond ing to this therapy visit. SIGNATURE: Clemencia Barraza PT DATE: January 02, 2021 TIME: 4:15 PM Physical Therapy Treatment SERVICE DATE: 01/02/2021 SERVICE TIME: 1356 to 1419 ROOM: [place] [address] Recommended Discharge Disposition: Acute Rehab Recommended Discharge Disposition Comments: Patient in dependent prio to admission, will benefit greatly from Acute rehab to im prove strength and progress towards prior level of function, anticipate p atient will tolerate 3 hours of therapy a day Recommended Discharge Disposition Due to: Patient requ ires an active, intensive rehabilitation therapy program due to:;ADL i mpairment resulting in caregiver dependence;decline in functional status r equiring daily skilled care;deficits affecting dominant side;deficits affecting non-dominant side;less than 3/5 weakness noted in:;dis jennifer LE;ongoing intervention of multiple therapy disciplines PT 6 Clicks Score: 8 Patient continues to require increased levels of kristi t with all mobility tasks, patient well below baseline functioning. contin ue to recommend acute care to improve strength, ROM, balance,endurance , normalized gait pattern, and independence with mobility tasks to prior level of function for safe return to home activity. Precautions/Activity Restrictions: Fall Risk;Seizure;B ed/Chair Alarm Current Hospital Course: 65 yo female found by family at home confused, pacing, and agitated. Found to have acute encephalopat hy concerning for PRES 2/2 sepsis and hypertension and possible breakthr ough seizures Reason for Hospital Admission: confusion, seizures Relevant Past Medical History: CHF, PAF, RA, seizure d isorder, CAD s/p STEMI, pressure ulcers on feet, fibromyalgia, hx of CV A, morbid obesity Response to Therapy Interventions: Good participation in activities, Improved tolerance for activity, Low activity toleranc e, Requires additional time to complete activities, Slow progressi on with functional activities/skills Continue skilled needs due to: Functional mobility/ski ll impairments, Safety concerns, Continued monitoring of vital signs d uring mobility required Physical Therapy Problem List: Decreased Activity Tole rocky;Decreased Range Of Motion;Decreased Strength;Functional Mobility Impairment;Balance Impaired Treatment Interventions: Education;Energy Conservation Training;Strengthening;Functional Mobility Training;Ba efren Training Home Environment Patient Lives With: Family (reports lives with son, pe r chart preview sister says alone) Assistance Available: migration specialist Entry To Home: Stairs Number Of Stairs Into Home: 1 Number Of Stairs To Bed/Bath: 0 Prior Functional Level: Within Functional Limits;Requi red Assistance Assistance Required With: Transportation Prior Functional Level Comments: pt questionable histo nito reports lives with son whom works and pt mobilizes without devices a nd completes ADLs herself; sister assists with transportation CURRENT FUNCTIONAL STATUS: Most recent performance mob ility performed during session in bold, other mobility completed durin g prior session and may no longer be correct or appropriate to complete. Current Functional Mobility Assist Level Additional In formation Rolling Supine to Sit Maximal Assistance (x2) assist via long sit pivot with use of draw sheet, cuing for UE pushing at sides as able. Sit to Supine Maximal Assistance (x2) via long sit piv ot transfer with draw sheet Scooting Maximal Assistance (x2) with draw sheet Sit to Stand Additional Information did not attempt se condary to weakness, fatigue, fair/poor sitting balance Stand to Sit Bed to Chair Toilet/Commode Gait Stairs Curb Step Car Transfer Blank davalos indicate activity not attempted Balance: Static Sitting;Dynamic Sitting Static Sitting Balance: Fair Patient able to maintain balance with handhold support, may require occasional minimal kristi tance Dynamic Sitting Balance: Poor Patient unable to accept challenge or move without loss of balance JH-HLM: 3: Sit at edge of bed Learning/Educational Needs: Functional Activities/Mobi lity;Rehabilitation Techniques and Procedures;Safety Goals for Plan of Care: Patient /Caregiver Goals: Other: See Comment (did not state ) Able to perform HEP with: Verbal Cues Only Transfer supine to/from sit with: Moderate Assistance Transfer sit to/from stand with: Moderate Assistance Ambulate with: Moderate Assistance Distance: 15' Device: Wheeled Walker Trans (more content not included)... Basic metabolic 2000 panel on 01-01-2021 Anion gap [Moles/Vol] 7 mmol/L Low 05-06 [facility] Comment on above: Order Comment: Specimen Type : BLOOD SPECIMEN Performed By: #### [id number] # ### [facility] CLIA [id number] [address] [place] [address] Calcium [Mass/Vol] 9.0 mg/dL Normal 8.5-10.2 [facility] Comment on above: Order Comment: Specimen Type : BLOOD SPECIMEN Performed By: #### [id number] # ### [facility] CLIA [id number] [address] [place] [address] Chloride [Moles/Vol] 105 mmol/L Normal 97-105 [facility] Comment on above: Order Comment: Specimen Type : BLOOD SPECIMEN Performed By: #### [id number] # ### [facility] CLIA [id number] [address] [place] [address] CO2 [Moles/Vol] 23 mmol/L Normal 22-30 [facility] Comment on above: Order Comment: Specimen Type : BLOOD SPECIMEN Performed By: #### [id number] # ### [facility] CLIA [id number] [address] [place] [address] Creatinine [Mass/Vol] 2.82 mg/dL High 0.58-0.96 [facility] Comment on above: Order Comment: Specimen Type : BLOOD SPECIMEN Performed By: #### [id number] # ### [facility] CLIA [id number] [address] [place] [address] GFR/1.73 sq M.predicted MDRD 20 mL/min/{1.73_m2} Normal [facility] (S/P/Bld) [Vol rate/Area] Ce nter Comment on above: Order Comment: Specimen Type : BLOOD SPECIMEN Result Comment: 17 eGFR (Estimated GFR) Units o f measure: mL/min/1.73 meters squared eGFR is derived from the ree xpressed MDRD Study equation using the following parameters: serum creatinine, age, gender and race. The creatinine assay has been calibrated to be traceable to IDMS. An eGFR <60 mL/min/1.73m2 for >3 mo nths is consistent with chronic kidney disease. Refer to KDOQI guidelines for clinical interpretation. In patients with unstable renal function, e.g. those with acute k idney injury, the eGFR may n ot accurately reflect actual GFR. Performed By: #### [id number] # ### [facility] CLIA [id number] [address] [place] [address] Glucose [Mass/Vol] 147 mg/dL High 74-99 [facility] Comment on above: Order Comment: Specimen Type : BLOOD SPECIMEN Result Comment: The [place] Diabetes Association (ADA) provides guidance for cutoff values for fasting glucose and random glucose. The ADA defines fasting as no caloric intake for at least 8 hours. Fas ting plasma glucose results between 100 to 125 mg/dL indicate increased risk for diabetes (prediabetes). Fasting plasma glucose resul ts greater than or equal to 126 mg/dL meet the criteria for diagnosis of diabetes. In the absence of unequivocal hyperglycemia, results should be confirmed by repeat testing. In a patient with classic s ymptoms of hyperglycemia or hyperglycemic crisis, random plasma glucose results greater than or equal to 200 mg/dL meet the criteria for diagnosis of diabetes. Reference: Standards of [facility] Care in Diabetes 2016, [place] [employer] Association. Diabetes Care. 2016.39(Suppl 1). Performed By: #### [id number] # ### [facility] CLIA [id number] [address] [place] [address] Potassium [Moles/Vol] 4.0 mmol/L Normal 3.7-5.1 [facility] Comment on above: Order Comment: Specimen Type : BLOOD SPECIMEN Performed By: #### [id number] # ### [facility] CLIA [id number] [address] [place] [address] Sodium [Moles/Vol] 135 mmol/L Low 136-144 [facility] Comment on above: Order Comment: Specimen Type : BLOOD SPECIMEN Performed By: #### 33651-2 # ### [facility] CLIA [id number] [address] [place] [address] Urea nitrogen [Mass/Vol] 39 mg/dL High 7-21 [facility] Comment on above: Order Comment: Specimen Type : BLOOD SPECIMEN Performed By: #### [id number] # ### [facility] CLIA [id number] [address] [place] [address] CONSULT PROG on 12-17 CONSULT PROG HNO ID: [id number] Normal [facility] Author: Delaney Mattson MD Center Service: Endocrinology Author Type: Physician Type: Consult Progress Note Filed: 01/01/2021 7:46 AM Note Text: ENDOCRINOLOGY PROGRESS NOTE PATIENT NAME: Soni Cramer SERVICE DATE: 01/01/21 SUBJECTIVE Interval History: Better blood sugar control Tube feeds 7PM/7AM CURRENT MEDICATION: Current Facility-Administered Medications Medication Dose Route Frequency - aspirin, enteric coated 81 mg tab(s) 81 mg ORAL BRITTANI Y - sodium chloride 0.9 % (flush) 2-10 mL (BD POSIFLUSH) 2-10 mL INTRAVENOUS q 12 H - heparin 5,000 Units injection 5,000 Units SUBCUTANEO US q 12 H - sodium chloride 0.9 % (flush) 3-5 mL (BD POSIFLUSH) 3-5 mL INTRAVENOUS q 12 H - LORazepam 1 mg injection (ATIVAN) 1 mg INTRAVENOUS q 5 MIN PRN - dextrose 40 % 15 g 15 g ORAL PRN Or - glucagon 1 mg injection 1 mg INTRAMUSCULAR PRN Or - dextrose 50% in water 25 mL syringe 12.5 g INTRAVENO US PRN - hydrALAZINE 10 mg injection (APRESOLINE) 10 mg INTRA VENOUS q 6 H PRN - miconazole 2 % 1 application topical powder (LOTRIMI N AF, DESENEX) 1 application TOPICAL BID - insulin regular human injection (short acting) (Soledad KELLI R,HumuLIN R) SUBCUTANEOUS q 6 H - hydrALAZINE 25 mg tab(s) (APRESOLINE) 25 mg NASOGAST TERRI q 8 H - carvedilol 12.5 mg tab(s) (COREG) 12.5 mg NASOGASTRI C BID w MEALS - pill senior trainer (patient-specific) 1 Each Miscell. (Med .Supl.;Non-Drugs) PRN - insulin regular human 16 Units injection (short acti ng) (NovoLIN R,HumuLIN R) 16 Units SUBCUTANEOUS 2 times per day - insulin glargine 20 Units pen (long acting) (LANTUS SOLOSTAR, BASAGLAR KWIKPEN) 20 Units SUBCUTANEOUS q 12 h 7am/7pm - ondansetron (PF) 4 mg injection (ZOFRAN) 4 mg INTRAV ENOUS q 6 H PRN CURRENT ALLERGIES: ALLERGIES Allergen Reactions - Bactrim [Sulfametho* Hives - Toradol [Ketorolac] Other: See Comments Increase BP - Ciprofloxacin Rash - Flexeril [Cyclobenz* Rash - Metformin Other: See Comments Migraines DATA: Diagnostic tests reviewed for today's visit: Component Latest Ref Rng AND Units 12/31/2020 12/31/2020 12/31/2020 12/31/2020 01/01/2021 5:48 AM 1:11 PM 4:13 PM 11:17 PM Glucose 74 - 99 mg/dL 147 (H) BUN 7 - 21 mg/dL 39 (H) Creatinine 0.58 - 0.96 mg/dL 2.82 (H) Sodium 136 - 144 mmol/L 135 (L) Potassium 3.7 - 5.1 mmol/L 4.0 Chloride 97 - 105 mmol/L 105 CO2 22 - 30 mmol/L 23 Anion Gap 9 - 18 mmol/L 7 (L) Calcium 8.5 - 10.2 mg/dL 9.0 eGFR- 20 eGFR-All Other Races 17 Glucose, Point of Care 74 - 99 mg/dL 220 (A) 207 (A) 1 99 (A) 128 (A) 154 (A) ASSESSMENT AND PLAN Type 2 DM with hypreglycemia Continue Lantus to 7 AM and 7 PM Continue Regular 16 units BID + ISS #2 q6hs Delaney Mattson MD Answering Service THERAPY NT on 2020 THERAPY NT HNO ID: [id number] Normal Janie richey Author: Larissa Dillon OTR/L [facility] Service: Occupational Therapy Author Type: Occupational Therapist Type: Therapy (PT/OT/Speech/Resp) Filed: 01/01/2021 11:52 AM Note Text: Occupational Therapy Treatment SERVICE DATE: 01/01/2021 SERVICE TIME: 1129 to 1139 ROOM: [place] [address] Recommended Discharge Disposition: Acute Rehab Recommended Discharge Disposition Comments: pt complet venessa indep prior to admission; pt would benefit from acute rehab to maximi ze return to functional independence with ADLs, mobility, and cogni tion Recommended Discharge Disposition Due to: Patient requ ires an active, intensive rehabilitation therapy program due to:;ongoi ng intervention of multiple therapy disciplines;Patient requires daily, f acility-based rehabilitation from at least one discipline due to: OT 6 Clicks Score: 9 Progressing slowly towards OT goals; requiring increas ed time to complete activities. Pt's cognition has improved; A+Ox3; able t o correctly identify name, today date (mo/year/date), and place. Responds a ppropriately to questions. Pt lethargic and requiring min verbal cuing to follow multi-step commands. Tolerated B UE ROM exercises fair while supine. Left UE weaker than right requiring min/moderate assist to complete exercises. Repositioned bilateral UEs for elevation on pillows to reduce edema. Pt with increased time to complete exercises due to weakn ess / fatigue. Discussed acute rehab's role and that they will be enc ouraging her to participate in longer, more intensive therapy sessions . Pt remains agreeable to acute rehab rec at d/c. Precautions/Activity Restrictions: Fall Risk;Seizure;B ed/Chair Alarm Current Hospital Course: 65 yo female found by family at home confused, pacing, and agitated. Found to have acute encephalopat hy concerning for PRES 2/2 sepsis and hypertension and possible breakthr ough seizures Reason for Hospital Admission: confusion, seizures Relevant Past Medical History: CHF, PAF, RA, seizure d isorder, CAD s/p STEMI, pressure ulcers on feet, fibromyalgia, hx of CV A, morbid obesity Response to Therapy Interventions: Cognitive status im provement, Low activity tolerance, Multiple ongoing medical issues, R equires additional time to complete activities Continue skilled needs due to: Functional impairment, Safety concerns, Cognitive deficits Occupational Therapy Problem List: Cognitive Deficit;E ducation Deficit;Safety Deficits;Impaired Self Care;Decreased A ctivity Tolerance;Decreased Range Of Motion;Decreased Strength ;Functional Mobility Impairment;Balance Impaired;Edema;Pain Cognition/Communication Deficits Communication Deficits: (speech appears improved ; responds appropriately) Orientation Deficits: Other: See Comment (A+Ox3) Responsiveness: Drowsy Follows Commands: 1-step Commands, Cueing Needed Cueing to Follow Commands: Minimum Judgement Deficit: Moderate impairment Insight to Deficits: Moderate impairment Problem Solving Deficit: Moderate impairment Motor Planning Deficit: Moderate impairment Safety Awareness Deficit: Moderate impairment Treatment Interventions: Education;Self Care / Home Ma nagement;Energy Conservation Training;Strengthening;Functional Mobilit y Training;Balance Training;Cognitive Training;Joint Mobility;Neuromuscul ar Re-education;Edema Management Home Environment Patient Lives With: Family (reports lives with son, pe r chart preview sister says alone) Assistance Available: migration specialist Entry To Home: Stairs Number Of Stairs Into Home: 1 Number Of Stairs To Bed/Bath: 0 Prior Functional Level: Within Functional Limits;Requi red Assistance Assistance Required With: Transportation Prior Functional Level Comments: pt questionable selin beauchamp reports lives with son whom works and pt mobilizes without devices a nd completes ADLs herself; sister assists with transportation Patient Report: Agreeable to session; c/o feeling tire d, wanting to take a nap after session CURRENT FUNCTIONAL STATUS: Most recent performance Current Activities of Daily Living Assist Level Additi onal Information Feeding Maximal Assistance Grooming Maximal Assistance Bathing Upper Body Maximal Assistance Bathing Lower Body Total Assistance Dressing Upper Body Maximal Assistance Dressing Lower Body Total Assistance Toileting Total Assistance Instrumental Activities of Daily Living Assist Level A dditional Information Meal/Beverage Prep Cleaning Laundry Medication Management with Strategies Functional Mobility Assist Level Additional Informatio n Rolling Maximal Assistance (x2) Supine to Sit Maximal Assistance (x2) Sit to Supine Maximal Assistance (x2) Scooting Maximal Assistance (x2) Sit to Stand Stand to Sit Bed to Chair Toilet/Commode Shower Functional Mobility Blank davalos indicate activity not attempted Hand Dominance: Right Range of Motion: ROM Limitation Comments ROM Limitation Comments: B (more content not included) ... AMBER BY IFA SCREEN on 12-31-2020 AMBER PATTERN Negative Normal [facility] Comment on above: Order Comment: Specimen Type : BLOOD SPECIMEN Performed By: #### [id number] ## ## [facility] CLIA [id number] [address] [place] [address] AMBER TITER Negative Normal NEGAT [facility] Comment on above: Order Comment: Specimen Type : BLOOD SPECIMEN Result Comment: Normal range : negative at <1:80 serum dilution. Performed By: #### [id number] ## ## [facility] CLIA [id number] [address] [place] [address] Nuclear Ab IF (S) [Titer] Negative Normal NEGAT [facility] Comment on above: Order Comment: Specimen Type : BLOOD SPECIMEN Result Comment: Normal range : negative at <1:80 serum dilution. Approximately 6% of patients with connective tissue diseases with low positive EIA values are negative by IFA. Recommend follow-up with specific antinuclear antibodies if clinically indicated. Test performed using Buxfer Fluorescence Immunoassay technology (IFA) using HEp-2 cells. Performed By: #### [id number] ## ## [facility] CLIA [id number] [address] [place], [place] [address] Basic metabolic 2000 panel on 12-31-2020 Anion gap [Moles/Vol] 9 mmol/L Normal 9-18 [facility] Comment on above: Order Comment: Specimen Type : BLOOD SPECIMEN Performed By: #### CHERYL, 03891 -2 ####[facility] LABORATORYCLIA [id number] [place] [address] Calcium [Mass/Vol] 8.9 mg/dL Normal 8.5-10.2 [facility] Comment on above: Order Comment: Specimen Type : BLOOD SPECIMEN Performed By: #### CHERYL, 19292 -2 ####[facility] LABORATORYCLIA [id number] [place] [address] Chloride [Moles/Vol] 101 mmol/L Normal 97-105 [facility] Comment on above: Order Comment: Specimen Type : BLOOD SPECIMEN Performed By: #### CHERYL, 25953 -2 ####[facility] LABORATORYCLIA [id number] [place] [address] CO2 [Moles/Vol] 24 mmol/L Normal 22-30 [facility] Comment on above: Order Comment: Specimen Type : BLOOD SPECIMEN Performed By: #### CHERYL, 52467 -2 ####[facility]ORATORYCLIA [id number] [facility] [place] [address] Creatinine [Mass/Vol] 2.48 mg/dL High 0.58-0.96 [facility] Comment on above: Order Comment: Specimen Type : BLOOD SPECIMEN Performed By: #### CHERYL, 94582 -2 ####[facility]ORATORYCLIA [id number] [place] [address] GFR/1.73 sq M.predicted MDRD 24 mL/min/{1.73_m2} Normal [facility] (S/P/Bld) [Vol rate/Area] Ce nter Comment on above: Order Comment: Specimen Type : BLOOD SPECIMEN Result Comment: 19 eGFR (Estimated GFR) Units o f measure: mL/min/1.73 meters squared eGFR is derived from the ree xpressed MDRD Study equation using the following parameters: serum creatinine, age, gender and race. The creatinine assay has been calibrated to be traceable to IDMS. An eGFR <60 mL/min/1.73m2 for >3 mo nths is consistent with chronic kidney disease. Refer to KDOQI guidelines for clinical interpretation. In patients with unstable renal function, e.g. those with acute k idney injury, the eGFR may n ot accurately reflect actual GFR. Performed By: #### CHERYL, 36328 -2 ####[facility]ORATORYCLIA [id number] [facility]ep[facility] [place] [address] Glucose [Mass/Vol] 228 mg/dL High 74-99 [facility] Comment on above: Order Comment: Specimen Type : BLOOD SPECIMEN Result Comment: The [place] Diabetes Association (ADA) provides guidance for cutoff values for fasting glucose and random glucose. The ADA defines fasting as no caloric intake for at least 8 hours. Fas ting plasma glucose results between 100 to 125 mg/dL indicate increased risk for diabetes (prediabetes). Fasting plasma glucose resul ts greater than or equal to 126 mg/dL meet the criteria for diagnosis of diabetes. In the absence of unequivocal hyperglycemia, results should be confirmed by repeat testing. In a patient with classic s ymptoms of hyperglycemia or hyperglycemic crisis, random plasma glucose results greater than or equal to 200 mg/dL meet the criteria for diagnosis of diabetes. Reference: Standards of [facility] Care in Diabetes 2016, [place] [employer] Association. Diabetes Care. 2016.39(Suppl 1). Performed By: #### CHERYL, 15710 -2 ####[facility]ORATORYCLIA [id number] [facility] [place] [address] Potassium [Moles/Vol] 3.6 mmol/L Low 3.7-5.1 [facility] Comment on above: Order Comment: Specimen Type : BLOOD SPECIMEN Performed By: #### CHERYL, 59686 -2 ####[employer] [facility] LABORATORYCLIA [id number] [facility] AV ENUEFMS [facility]CORE[facility] [address] Sodium [Moles/Vol] 134 mmol/L Low 136-144 [facility] Comment on above: Order Comment: Specimen Type : BLOOD SPECIMEN Performed By: #### CK, 36462 -2 ####[facility]ORATORYCLIA [id number] [place] [address] Urea nitrogen [Mass/Vol] 36 mg/dL High 7-21 [facility] Comment on above: Order Comment: Specimen Type : BLOOD SPECIMEN Performed By: #### CHERYL, 19395 -2 ####[facility]ATORYCLIA [id number] [place] [address] C3 COMPLEMENT BLD on 12-31-2020 Complement C3 [Mass/Vol] 115 mg/dL Normal 86-166 [facility] Comment on above: Order Comment: Specimen Type : BLOOD SPECIMEN Performed By: #### C3PAOLA C 4COMP ####[facility] LAB REFERENCE LABCLIA [id number] [facility] [place] [address] C4 COMPLEMENT BLD on 12-31-2020 Complement C4 [Mass/Vol] 21 mg/dL Normal 13-46 [facility] Comment on above: Order Comment: Specimen Type : BLOOD SPECIMEN Performed By: #### C3PAOLA C 4COMP ####[facility] LAB REFERENCE LABCLIA [id number] [facility] [place] [address] CK CREATINE KINASE o n 12-31-2020 CK [Catalytic activity/Vol] 55 U/L Normal 42-196 [facility] Comment on above: Order Comment: Specimen Type : BLOOD SPECIMEN Performed By: #### CHERYL, 75964 -2 ####[facility]ORATORYCLIA [id number] [place] [address] CONSULT PROG on 12-17 CONSULT PROG HNO ID: [id number] Normal [facility] Author: Delaney Mattson MD Center Service: Endocrinology Author Type: Physician Type: Consult Progress Note Filed: 12/31/2020 9:45 AM Note Text: ENDOCRINOLOGY PROGRESS NOTE PATIENT NAME: Soni Cramer SERVICE DATE: 12/31/20 SUBJECTIVE Interval History: Patient/s blood sugars elevated mostly overnight - rel ated to tube feeds (from 7 PM to 7 AM) Current DM regimen: Regular 16 units BID + ISS #2 q6hs Lantus q12hrs at 12 AM and 12 PM CURRENT MEDICATION: Current Facility-Administered Medications Medication Dose Route Frequency - aspirin, enteric coated 81 mg tab(s) 81 mg ORAL BRITTANI Y - sodium chloride 0.9 % (flush) 2-10 mL (BD POSIFLUSH) 2-10 mL INTRAVENOUS q 12 H - heparin 5,000 Units injection 5,000 Units SUBCUTANEO US q 12 H - sodium chloride 0.9 % (flush) 3-5 mL (BD POSIFLUSH) 3-5 mL INTRAVENOUS q 12 H - LORazepam 1 mg injection (ATIVAN) 1 mg INTRAVENOUS q 5 MIN PRN - dextrose 40 % 15 g 15 g ORAL PRN Or - glucagon 1 mg injection 1 mg INTRAMUSCULAR PRN Or - dextrose 50% in water 25 mL syringe 12.5 g INTRAVENO US PRN - hydrALAZINE 10 mg injection (APRESOLINE) 10 mg INTRA VENOUS q 6 H PRN - sodium chloride 0.9 % (flush) 2-10 mL (BD POSIFLUSH) 2-10 mL INTRAVENOUS DIRECTED PRN - miconazole 2 % 1 application topical powder (LOTRIMI N AF, DESENEX) 1 application TOPICAL BID - insulin regular human injection (short acting) (Soledad KELLI R,HumuLIN R) SUBCUTANEOUS q 6 H - hydrALAZINE 25 mg tab(s) (APRESOLINE) 25 mg NASOGAST TERRI q 8 H - carvedilol 12.5 mg tab(s) (COREG) 12.5 mg NASOGASTRI C BID w MEALS - pill senior trainer (patient-specific) 1 Each Miscell. (Med .Supl.;Non-Drugs) PRN - insulin glargine 20 Units pen (long acting) (LANTUS SOLOSTAR, BASAGLAR KWIKPEN) 20 Units SUBCUTANEOUS q 12 H 12p/12a - insulin regular human 16 Units injection (short acti ng) (NovoLIN R,HumuLIN R) 16 Units SUBCUTANEOUS 2 times per day - NaCl 0.9% iv infusion 75 mL/hr INTRAVENOUS CONTINUOU S CURRENT ALLERGIES: ALLERGIES Allergen Reactions - Bactrim [Sulfametho* Hives - Toradol [Ketorolac] Other: See Comments Increase BP - Ciprofloxacin Rash - Flexeril [Cyclobenz* Rash - Metformin Other: See Comments Migraines DATA: Diagnostic tests reviewed for today's visit: Component Latest Ref Rng AND Units 12/30/2020 12/30/2020 12/30/2020 12/31/2020 12/31/2020 12/31/2020 12:50 PM 4:28 PM 9:24 PM 12:10 AM 3:21 AM 5:48 AM Glucose 74 - 99 mg/dL 228 (H) BUN 7 - 21 mg/dL 36 (H) Creatinine 0.58 - 0.96 mg/dL 2.48 (H) Sodium 136 - 144 mmol/L 134 (L) Potassium 3.7 - 5.1 mmol/L 3.6 (L) Chloride 97 - 105 mmol/L 101 CO2 22 - 30 mmol/L 24 Anion Gap 9 - 18 mmol/L 9 Calcium 8.5 - 10.2 mg/dL 8.9 eGFR- 24 eGFR-All Other Races 19 Glucose, Point of Care 74 - 99 mg/dL 124 (A) 173 (A) 2 42 (A) 279 (A) 220 (A) ASSESSMENT AND PLAN Type 2 DM with hyperglycemia Change Lantus to 7 AM and 7 PM Continue Regular 16 units BID + ISS #2 q6hs Delaney Mattson MD Answering Service EOSINOPHIL SMEAR on 12-31-2020 EOSIN SMEAR No eosinophils seen. Normal No eosinophils seen. [facility] Comment on above: Order Comment: Specimen Type : BLOOD SPECIMEN Performed By: #### 19028-7 # ### [facility] CLIA [id number] [address] [place] [address] MYELOPEROXID AUTOAB on 12-31-2020 Myeloperoxidase Ab Qn (S) <0.2 Normal <1.0 [facility] Comment on above: Order Comment: Specimen Type : BLOOD SPECIMEN Performed By: #### 4091-5 ## ## [facility] CLIA [id number] [address] [place] [address] PROTEINASE 3 ANTIBODY on 12-31-2020 PROTEINASE 3 ANTIBODY <0.2 Normal <1.0 [facility] Comment on above: Order Comment: Specimen Type : BLOOD SPECIMEN Performed By: #### 4091-5 ## ## [facility] CLIA [id number] [address] [place] [address] Basic metabolic 2000 panel on 12-30-2020 Anion gap [Moles/Vol] 8 mmol/L Low 9-18 [facility] Comment on above: Order Comment: Specimen Type : BLOOD SPECIMEN Performed By: #### 2777-1, 2 4321-2 ####[facility]ATORYCLIA [id number] [place] [facility] [address] Calcium [Mass/Vol] 8.8 mg/dL Normal 8.5-10.2 [facility] Comment on above: Order Comment: Specimen Type : BLOOD SPECIMEN Performed By: #### 2777-1, 2 4321-2 ####[facility]ATORYCLIA [id number] [facility] [place] [address] Chloride [Moles/Vol] 106 mmol/L High 97-105 [facility] Comment on above: Order Comment: Specimen Type : BLOOD SPECIMEN Performed By: #### 2777-1, 2 4321-2 ####[facility]ATORYCLIA [id number] [place] [address] CO2 [Moles/Vol] 23 mmol/L Normal 22-30 [facility] Comment on above: Order Comment: Specimen Type : BLOOD SPECIMEN Performed By: #### 2777-1, 2 4321-2 ####[facility]ATORYCLIA [id number] [place] [address] Creatinine [Mass/Vol] 1.97 mg/dL High 0.58-0.96 [facility] Comment on above: Order Comment: Specimen Type : BLOOD SPECIMEN Performed By: #### 2777-1, 2 4321-2 ####[facility]ATORYCLIA [id number] [place] [address] GFR/1.73 sq M.predicted MDRD 31 mL/min/{1.73_m2} Normal [facility] (S/P/Bld) [Vol rate/Area] Ce nter Comment on above: Order Comment: Specimen Type : BLOOD SPECIMEN Result Comment: 25 eGFR (Estimated GFR) Units o f measure: mL/min/1.73 meters squared eGFR is derived from the ree xpressed MDRD Study equation using the following parameters: serum creatinine, age, gender and race. The creatinine assay has been calibrated to be traceable to IDMS. An eGFR <60 mL/min/1.73m2 for >3 mo nths is consistent with chronic kidney disease. Refer to KDOQI guidelines for clinical interpretation. In patients with unstable renal function, e.g. those with acute k idney injury, the eGFR may n ot accurately reflect actual GFR. Performed By: #### 2777-1, 2 4320-2 ####[facility]ORATORYCLIA [id number] [place] [address] Glucose [Mass/Vol] 294 mg/dL High 74-99 [facility] Comment on above: Order Comment: Specimen Type : BLOOD SPECIMEN Result Comment: The [place] Diabetes Association (ADA) provides guidance for cutoff values for fasting glucose and random glucose. The ADA defines fasting as no caloric intake for at least 8 hours. Fas ting plasma glucose results between 100 to 125 mg/dL indicate increased risk for diabetes (prediabetes). Fasting plasma glucose resul ts greater than or equal to 126 mg/dL meet the criteria for diagnosis of diabetes. In the absence of unequivocal hyperglycemia, results should be confirmed by repeat testing. In a patient with classic s ymptoms of hyperglycemia or hyperglycemic crisis, random plasma glucose results greater than or equal to 200 mg/dL meet the criteria for diagnosis of diabetes. Reference: Standards of [facility] Care in Diabetes 2016, [place] [employer] Association. Diabetes Care. 2016.39(Suppl 1). Performed By: #### 2777-1, 2 4320- ####[facility]ORATORYCLIA [id number] [facility] [place] [address] Potassium [Moles/Vol] 3.6 mmol/L Low 3.7-5.1 [facility] Comment on above: Order Comment: Specimen Type : BLOOD SPECIMEN Performed By: #### 2777-1, 2 4320-2 ####[facility]ORATORYCLIA [id number] [place] [address] Sodium [Moles/Vol] 137 mmol/L Normal 136-144 [facility] Comment on above: Order Comment: Specimen Type : BLOOD SPECIMEN Performed By: #### 2777-1, 2 4321-2 ####[facility]ORATORYCLIA [id number] [place] [address] Urea nitrogen [Mass/Vol] 27 mg/dL High 7-21 [facility] Comment on above: Order Comment: Specimen Type : BLOOD SPECIMEN Performed By: #### 2777-1, 2 4321-2 ####[facility]ORATORYCLIA [id number] [place] [address] CBC panel Auto (Bld) on 12-30-2020 Erythrocyte distribution width 15.4 % High 11.5-15.0 [facility] (RBC) [Ratio] Comment on above: Order Comment: Specimen Type : BLOOD SPECIMEN Performed By: #### 45306-7 # ### [facility] CLIA [id number] [address] [place] [address] Hematocrit (Bld) [Volume 39.5 % Normal 36.0-46.0 [facility] fraction] Comment on above: Order Comment: Specimen Type : BLOOD SPECIMEN Performed By: #### 39544-1 # ### [facility] CLIA [id number] [address] [place] [address] Hemoglobin (Bld) [Mass/Vol] 12.5 g/dL Normal 11.5-15.5 [facility] Comment on above: Order Comment: Specimen Type : BLOOD SPECIMEN Performed By: #### 75646-8 # ### [facility] CLIA [id number] [address] [place] [address] MCH (RBC) [Entitic mass] 27.1 pg Normal 26.0-34.0 [facility] Comment on above: Order Comment: Specimen Type : BLOOD SPECIMEN Performed By: #### 33447-2 # ### [facility] CLIA [id number] [address] [place] [address] MCHC (RBC) [Mass/Vol] 31.6 g/dL Normal 30.5-36.0 [facility] Comment on above: Order Comment: Specimen Type : BLOOD SPECIMEN Performed By: #### 53083-6 # ### [facility] CLIA [id number] [address] [place] [address] MCV (RBC) [Entitic vol] 85.7 fL Normal 80.0-100.0 [facility] Comment on above: Order Comment: Specimen Type : BLOOD SPECIMEN Performed By: #### 62974-9 # ### [facility] CLIA [id number] [address] [place] [address] Nucleated RBC (Bld) [#/Vol] 10*3/uL Normal <0.01 [facility] Comment on above: Order Comment: Specimen Type : BLOOD SPECIMEN Performed By: #### 59061-7 # ### [facility] CLIA [id number] [address] [place] [address] Platelet mean volume (Bld) 11.0 fL Normal 9.0-12.7 [facility] [Entitic vol] Comment on above: Order Comment: Specimen Type : BLOOD SPECIMEN Performed By: #### 54472-3 # ### [facility] CLIA [id number] [address] [place] [address] Platelets (Bld) [#/Vol] 308 10*3/uL Normal 150-400 [facility] Comment on above: Order Comment: Specimen Type : BLOOD SPECIMEN Performed By: #### 09929-6 # ### [facility] CLIA [id number] [address] [place] [address] RBC (Bld) [#/Vol] 4.61 10*6/uL Normal 3.90-5.20 [facility] Comment on above: Order Comment: Specimen Type : BLOOD SPECIMEN Performed By: #### 87753-4 # ### [facility] CLIA [id number] [address] [place] [address] WBC (Bld) [#/Vol] 12.51 10*3/uL High 3.70-11.00 [facility] Comment on above: Order Comment: Specimen Type : BLOOD SPECIMEN Performed By: #### 71929-4 # ### [facility] CLIA [id number] [address] [place] [id number] CONSULT on CONSULT HNO ID: [id number] Normal [facility] Medical Author: Donna Costello MD Center Service: Nephrology Author Type: Physician Type: Consults Filed: 12/30/2020 5:02 PM Note Text: Soni Cramer is a 65 y o female patient who was adm itted to hospital from [facility] for encephalopathy. Events 1. Encephalopathy. MRI in [place] was consistent with PRES/encephalitis changes. Sepsis related vs BP related. BP is currently controlled only on 2 meds. LP done here is negative. Currently off all ab x 2. Baseline cr is normal as of 3 days ago. Increasing in last 2 days. 3. History of seizure disorder. Negative for seziures here 4. DKA on admit to [place] now better. 5. HTN. Initially high. Now better Failed swallow. Has a NG tube for tube feeds Currently does not offer any complaints other than leg pain. She has known history of takatsubo cardiomyopathy. ROS negative except above . PAST MEDICAL HISTORY Diagnosis Date - Congestive heart failure (HCC) - Coronary artery disease - Diarrhea - Diarrhea - Hypothyroidism - PMH - PAST MEDICAL HISTORY OF high cholestrol - PMH - PAST MEDICAL HISTORY OF neck injury - Seizures (HCC) 12/26/2020 - Type II or unspecified type diabetes mellitus withou t mention of complication, not stated as uncontrolled - Unspecified essential hypertension PAST SURGICAL HISTORY Procedure Laterality Date - APPENDECT[facility] - COLONOSCOPY W/BX 05/27/07 - EGD W/O OR W/BRUSH/WASH 06/19/2013 EGD - EGD W/O OR W/BRUSH/WASH 02/17/15 EGD - REMOVAL GALLBLADDER Cholecystectomy Social History Tobacco Use - Smoking status: Never Smoker - Smokeless tobacco: Never Used Substance Use Topics - Alcohol use: No - Drug use: No Current Facility-Administered Medications Medication Dose Route Frequency Provider Last Rate Las t Admin - insulin regular human 16 Units injection (short acti ng) (NovoLIN R,HumuLIN R) 16 Units SUBCUTANEOUS 2 times per day Rene in Devan Floyd MD - NaCl 0.9% iv infusion 75 mL/hr INTRAVENOUS CONTINUOU S Hugh Martinez MD 75 mL/hr at 12/30/20 1541 75 mL/hr at 0512/07 1541 - insulin regular human injection (short acting) (Soledad KELLI R,HumuLIN R) SUBCUTANEOUS q 6 H Chung Floyd MD 4 Units at 0 12/30/20 0600 - hydrALAZINE 25 mg tab(s) (APRESOLINE) 25 mg NASOGAST TERRI q 8 H Hugh Martinez MD 25 mg at 12/30/20 1333 - carvedilol 12.5 mg tab(s) (COREG) 12.5 mg NASOGASTRI C BID w MEALS Hugh Martinez MD 12.5 mg at 12/30/20 0730 - pill senior trainer (patient-specific) 1 Each Miscell. (Med .Supl.;Non-Drugs) PRN Hugh Martinez MD - insulin glargine 20 Units pen (long acting) (LANTUS SOLOSTAR, BASAGLAR KWIKPEN) 20 Units SUBCUTANEOUS q 12 H 12p/12a Chung Floyd MD 20 Units at 12/30/20 1333 - dextrose 40 % 15 g 15 g ORAL PRN João Henry Or - glucagon 1 mg injection 1 mg INTRAMUSCULAR PRN Sidney Linda MD Or - dextrose 50% in water 25 mL syringe 12.5 g INTRAVENO US PRN Sidney Linda MD - hydrALAZINE 10 mg injection (APRESOLINE) 10 mg INTRA VENOUS q 6 H PRN Opal Dhillon DO 10 mg at 12/28/20 1419 - sodium chloride 0.9 % (flush) 2-10 mL (BD POSIFLUSH) 2-10 mL INTRAVENOUS DIRECTED PRN Abe Henry DO - miconazole 2 % 1 application topical powder (LOTRIMI N AF, DESENEX) 1 application TOPICAL BID Laura Ojeda APRN.REGISTERED CLINICAL DIETITIAN 1 applic ation at 12/30/20 0900 - aspirin, enteric coated 81 mg tab(s) 81 mg ORAL BRITTANI Y Sidney Linda MD 81 mg at 12/30/20 0839 - sodium chloride 0.9 % (flush) 2-10 mL (BD POSIFLUSH) 2-10 mL INTRAVENOUS q 12 H Sidney Linda MD 20 mL at 12/30 1527 - heparin 5,000 Units injection 5,000 Units SUBCUTANEO US q 12 H Sidney Linda MD 5,000 Units at 12/30/20 0841 - sodium chloride 0.9 % (flush) 3-5 mL (BD POSIFLUSH) 3-5 mL INTRAVENOUS q 12 H Sidney Linda MD 5 mL at 12/29/20 2206 - LORazepam 1 mg injection (ATIVAN) 1 mg INTRAVENOUS q 5 MIN PRN Sidney Linda MD HYDROcodone-Acetaminophen (NORCO) 10-325 mg per tablet , Take 1 tablet by mouth every 6 hours as needed for Pain., Disp: , Rfl: oxybutynin XL (DITROPAN XL) 5 mg 24 hr tablet, Take 5 mg by mouth once daily., Disp: , Rfl: hydrOXYchloroQUINE (PLAQUENIL) 200 mg tablet, Take 200 mg by mouth twice daily., Disp: , Rfl: DULoxetine (CYMBALTA) 30 mg capsule, Take 60 mg by mali th once daily. , Disp: , Rfl: carvedilol (COREG) 12.5 mg tablet, Take 12.5 mg by mali th twice daily with meals., Disp: , Rfl: budesonide (PULMICORT) 0.5 mg/2 mL nebulizer solution, Use 0.5 mg via nebulizer twice daily., Disp: , Rfl: insulin regular human, CONCENTRATED 500 UNIT/ML, (HUMU KELLI R U-500, CONC, KWIKPEN) 500 unit/mL (3 mL) inpn, Inject subcutaneousl y. INJECT 75 UNITS SUBCUTANEOUSLY EVERY DAY WITH BREAKFAST AND DINNER 50 UNITS WITH LUNCH PLUS SLIDING SCALE LISTED, Disp: , Rfl: metoclopramide HCl (REGLAN) 5 mg tablet, Take 5 mg by mouth. TAKE 1/2 (ONE HALF) TO 1 TABLET BY MOUTH 30 MINUTES BEFO (more roverto nt not included)... CONSULT PROG on 12-17 CONSULT PROG HNO ID: [id number] [facility] Medical Author: Chaparro Payton MD Ce nter Service: Infectious Disease Author Type: Physician Type: Consult Progress Note Filed: 12/30/2020 5:31 PM Note Text: PROGRESS NOTE INFECTIOUS DISEASE BRIEF SUMMARY: 65 year old female PMH of CHF, paroxysmal A. Fib, arth ritis, seizure disorder, takatsubo cardiomyopathy, CAD, hypothyroidis m, fibromyalgia, delayed gastric emptying study, Presented to [facility] 12/26 for Confused, pacing and agitated. ID consulted for acute encephalopathy, leukocytosis, concern for meningitis ASSESSMENT: 1. Encephalopathy - likely metabolic vs non-infectious cause. MRI brain 12/27 showed abnormal T2/FLAIR signal within bilat post erior parietal lobes, bilat medial occipatal lobes. DDx include PRES, encephalitis/meningitis. With CSF wbc of 2, I think th is is less likely infectious cause of encephalitis/meningitis 2. Leukocytosis CSF Culture continues to be negative from [place]. Pat ient appears to be stable Off antibiotics Estimated Creatinine Clearance: 41 mL/min (A) (based o n SCr of 1.97 mg/dL (H)). RECOMMENDATIONS: - monitor off abx - ID will sign off. Please do not hesitate to call us if there is any questions Dr Zeus Laughlin is available over the weekend if q uestions arise Subjective SUBJECTIVE: Interval Events: 12/28 better mentation today, able to articulate words help me. I want to eat. abx discontinued 12/29 a+ox3 per hospitalist note. 12/30 TTE Show no evidence of infective endocarditis ba sed on limited images Active Antimicrobials (From admission, onward) Start Stop 12/27/20 1200 miconazole 2 % 1 application topical pow andra (LOTRIMIN AF, DESENEX) 1 application, TOPICAL, 2 TIMES DAILY 01/06/21 0859 Immunosuppressant: None Objective Medications: Current Facility-Administered Medications Medication Dose Route Frequency - aspirin, enteric coated 81 mg tab(s) 81 mg ORAL BRITTANI Y - sodium chloride 0.9 % (flush) 2-10 mL (BD POSIFLUSH) 2-10 mL INTRAVENOUS q 12 H - heparin 5,000 Units injection 5,000 Units SUBCUTANEO US q 12 H - sodium chloride 0.9 % (flush) 3-5 mL (BD POSIFLUSH) 3-5 mL INTRAVENOUS q 12 H - LORazepam 1 mg injection (ATIVAN) 1 mg INTRAVENOUS q 5 MIN PRN - dextrose 40 % 15 g 15 g ORAL PRN Or - glucagon 1 mg injection 1 mg INTRAMUSCULAR PRN Or - dextrose 50% in water 25 mL syringe 12.5 g INTRAVENO US PRN - hydrALAZINE 10 mg injection (APRESOLINE) 10 mg INTRA VENOUS q 6 H PRN - sodium chloride 0.9 % (flush) 2-10 mL (BD POSIFLUSH) 2-10 mL INTRAVENOUS DIRECTED PRN And - perflutren lipid microspheres 1.1 mg/mL 1.3 mL injec tion (DEFINITY) 1.3 mL INTRAVENOUS DIRECTED PRN - miconazole 2 % 1 application topical powder (LOTRIMI N AF, DESENEX) 1 application TOPICAL BID - insulin regular human injection (short acting) (Soledad KELLI R,HumuLIN R) SUBCUTANEOUS q 6 H - hydrALAZINE 25 mg tab(s) (APRESOLINE) 25 mg NASOGAST TERRI q 8 H - carvedilol 12.5 mg tab(s) (COREG) 12.5 mg NASOGASTRI C BID w MEALS - pill senior trainer (patient-specific) 1 Each Miscell. (Med .Supl.;Non-Drugs) PRN - insulin glargine 20 Units pen (long acting) (LANTUS SOLOSTAR, BASAGLAR KWIKPEN) 20 Units SUBCUTANEOUS q 12 H 12p/12a - insulin regular human 16 Units injection (short acti ng) (NovoLIN R,HumuLIN R) 16 Units SUBCUTANEOUS q 6 H OBJECTIVE: Physical Exam: BP 165/70 Pulse 74 Temp (Src) 98.1 (Axillary) Re sp 20 Ht 5' 5.984[per previously height documentation per review of EMR[ (1.68m) Wt 313 lb 4.8 oz (142.1kg) SpO2 97% BMI 50.59 kg/(m2) . O2 Therapy: Room Air Lines, Drains, and Airways Line Peripheral Assessment Short Right Hand 22 Gauge -- day s Central Line Double Lumen 12/26/20 Peripherally Insert ed (PICC) Left Arm 4 days Drain Indwelling Urinary Catheter 12/26/20 2300 Admission to Hospital [facility] 3 days GI Feed 12/27/20 1750 Gastric Right Naris 12 Fr 2 days Lab data: WBC Date Value 12/30/2020 12.51 k/uL 12/29/2020 14.60 k/uL 12/28/2020 18.30 k/uL 12/27/2020 18.45 k/uL 12/27/2020 20.85 k/uL 04/29/2015 10.8 thou/cmm 04/28/2015 12.9 thou/cmm 04/26/2015 8.4 thou/cmm 04/25/2015 9.2 thou/cmm 04/24/2015 13.4 thou/cmm Platelet Count Date Value 12/30/2020 308 k/uL 12/29/2020 302 k/uL 12/28/2020 258 k/uL 12/27/2020 278 k/uL 12/27/2020 292 k/uL 04/29/2015 336 thou/cmm 04/28/2015 330 thou/cmm 04/26/2015 310 thou/cmm 04/25/2015 313 thou/cmm 04/24/2015 321 thou/cmm Creatinine (mg/dL) Date Value 12/30/2020 1.97 12/29/2020 1.50 12/28/2020 0.79 12/27/2020 0.75 12/27/2020 0.79 04/28/2015 0.87 04/27/2015 0.86 04/26/2015 0.81 04/25/2015 0.91 04/24/2015 0.86 Vancomycin (ug/mL) Date Value 12/28/2020 17.5 12/27/2020 17.9 AST (U/L) Date Value 12/28/2020 12 04/26/2015 19 ALT (U/L) Date Value 12/28/2020 12 04/26/2015 40 DATA: Diagnostic Tests Reviewed for Today's Visit: Most recent labs. Most recent imaging Microbiology data: Positive Micro-30 Day (more content not included)... CONSULT PROG HNO ID: [id number] [facility] Author: Chung Floyd MD Center Service: Endocrinology Author Type: Physician Type: Consult Progress Note Filed: 12/30/2020 11:55 AM Note Text: DIABETES PROGRESS NOTE SERVICE DATE: 12/30/2020 SERVICE TIME: 929 REASON FOR CONSULT: DM Type 2 REQUESTING PHYSICIAN: No referring provider defined fo r this encounter. Subjective INTERVAL HISTORY OF PRESENT ILLNESS: Currently on tube feeds from 7pm to 7am, trying meals during the day. Insulin regimen of L antus 20 units BID and regular insulin 16 units QH while on tube feeds. Component Glucose, Point of Care Latest Ref Rng AND Units 74 - 99 mg/dL 12/29/2020 12:32 AM 215 (A) 12/29/2020 6:21 AM 180 (A) 12/29/2020 11:08 AM 156 (A) 12/29/2020 4:13 PM 152 (A) 12/29/2020 8:06 PM 230 (A) 12/30/2020 12:18 AM 294 (A) 12/30/2020 5:37 AM 214 (A) PAST MEDICAL HISTORY Diagnosis Date - Congestive heart failure (HCC) - Coronary artery disease - Diarrhea - Diarrhea - Hypothyroidism - PMH - PAST MEDICAL HISTORY OF high cholestrol - PMH - PAST MEDICAL HISTORY OF neck injury - Seizures (HCC) 12/26/2020 - Type II or unspecified type diabetes mellitus withou t mention of complication, not stated as uncontrolled - Unspecified essential hypertension PAST SURGICAL HISTORY Procedure Laterality Date - APPENDECTOMY 1973 - COLONOSCOP W/ OR W/O [facility] SPEC 06/19/2013 Colonoscopy - COLONOSCOPY W/BX 05/27/07 - EGD W/O OR W/BRUSH/WASH 06/19/2013 EGD - EGD W/O OR W/BRUSH/WASH 02/17/15 EGD - REMOVAL GALLBLADDER Cholecystectomy FAMILY HISTORY Problem Relation Age of Onset - Diabetes Mother - other (Crohn's disease) Mother - other (Crohn's disease) Son - other (Bone cancer) Father - Diabetes Maternal Grandmother Social History Tobacco Use - Smoking status: Never Smoker - Smokeless tobacco: Never Used Substance Use Topics - Alcohol use: No - Drug use: No Current Facility-Administered Medications Medication Dose Route Frequency Provider Last Rate Las t Admin - insulin regular human 16 Units injection (short acti ng) (NovoLIN R,HumuLIN R) 16 Units SUBCUTANEOUS 2 times per day Rene keenan Floyd MD - insulin regular human injection (short acting) (Soledad KELLI R,HumuLIN R) SUBCUTANEOUS q 6 H Chung Floyd MD 4 Units at 0 12/30/20 0600 - hydrALAZINE 25 mg tab(s) (APRESOLINE) 25 mg NASOGAST TERRI q 8 H Hugh Martinez MD 25 mg at 12/30/20 0600 - carvedilol 12.5 mg tab(s) (COREG) 12.5 mg NASOGASTRI C BID w MEALS Hugh Martinez MD 12.5 mg at 12/30/20 0730 - pill senior trainer (patient-specific) 1 Each Miscell. (Med .Supl.;Non-Drugs) PRN Hugh Martinez MD - insulin glargine 20 Units pen (long acting) (LANTUS SOLOSTAR, BASAGLAR KWIKPEN) 20 Units SUBCUTANEOUS q 12 H 12p/12a Chung Floyd MD 20 Units at 12/30/20 0000 - dextrose 40 % 15 g 15 g ORAL PRN João Henry Or - glucagon 1 mg injection 1 mg INTRAMUSCULAR PRN Sidney Linda MD Or - dextrose 50% in water 25 mL syringe 12.5 g INTRAVENO US PRN Sidney Linda MD - hydrALAZINE 10 mg injection (APRESOLINE) 10 mg INTRA VENOUS q 6 H PRN Opal Dhillon DO 10 mg at 12/28/20 1419 - sodium chloride 0.9 % (flush) 2-10 mL (BD POSIFLUSH) 2-10 mL INTRAVENOUS DIRECTED PRN Abe Henry DO And - perflutren lipid microspheres 1.1 mg/mL 1.3 mL injec tion (DEFINITY) 1.3 mL INTRAVENOUS DIRECTED PRN Abe Henry DO - miconazole 2 % 1 application topical powder (LOTRIMI N AF, DESENEX) 1 application TOPICAL BID Laura Ojeda APRN.REGISTERED CLINICAL DIETITIAN 1 applic ation at 12/30/20 0900 - aspirin, enteric coated 81 mg tab(s) 81 mg ORAL BRITTANI Y Sidney Linda MD 81 mg at 12/30/20 0839 - sodium chloride 0.9 % (flush) 2-10 mL (BD POSIFLUSH) 2-10 mL INTRAVENOUS q 12 H Sidney Linda MD 10 mL at 12/29 2204 - heparin 5,000 Units injection 5,000 Units SUBCUTANEO US q 12 H Sidney Linda MD 5,000 Units at 12/30/20 0841 - sodium chloride 0.9 % (flush) 3-5 mL (BD POSIFLUSH) 3-5 mL INTRAVENOUS q 12 H Sidney Linda MD 5 mL at 12/29/20 2206 - LORazepam 1 mg injection (ATIVAN) 1 mg INTRAVENOUS q 5 MIN PRN Sidney Linda MD Allergies As of Date: 12/26/2020 Allergen Noted Reaction BACTRIM [SULFAMETHOXAZOLE-TRIMETH*07/31/2017 Hives TORADOL [KETOROLAC] 03/22/2006 Other: See Comments CIPROFLOXACIN 06/10/2013 Rash FLEXERIL [CYCLOBENZAPRINE] 06/10/2013 Rash METFORMIN 06/28/2017 Other: See Comments Fully Assessed 12/26/2020 Objective PHYSICAL EXAM: BP 151/58 Pulse 60 Temp 36.2 ?C (97.2 ?F) (Oral) Resp 16 Ht 167.6 cm (5' 5.98) Wt 142.1 kg (313 lb 4.8 oz) SpO2 100% BMI 5 0.59 kg/m2 GENERAL: weak. Somewhat slurred speech but awakens to questioning SKIN: skin color, texture, turgor normal, no rashes or lesions. HEART: RRR without murmur, gallop, or rubs. No ectopy PULMONARY: Lungs clear to auscultation. No wheezing, r honchi, rales. EXTREMITIES: 1+ edema DATA: Diagnostic tests reviewed for today's visit: Most recent labs Assesment: Impre (more content not included)... Phosphate SerPl-mCnc on 12-30-2020 Phosphate [Mass/Vol] 3.8 mg/dL Normal 2.7-4.8 [facility] Comment on above: Order Comment: Specimen Type : BLOOD SPECIMEN Performed By: #### [id number], 2 4321-2 ####[facility] [id number] [place] [address] Prot/Creat Ur on Protein/Creatinine (U) [Mass ratio] 0.4 mg/g High <0.2 [facility] Comment on above: Order Comment: Specimen Type : BLOOD SPECIMEN Performed By: #### PROCAL ## ## [facility] CLIA [id number] [address] [place] [address] Protein/Creatinine (U) [Mass ratio] on 12-30-2020 Creatinine (U) [Mass/Vol] 222.6 mg/dL Normal 42.2-237.9 [facility] Comment on above: Order Comment: Specimen Type : BLOOD SPECIMEN Performed By: #### PROCAL ## ## [facility] CLIA [id number] [address] [place] [address] Protein (U) [Mass/Vol] 80 mg/dL High 0-20 [facility] Comment on above: Order Comment: Specimen Type : BLOOD SPECIMEN Performed By: #### PROCAL ## ## [facility] CLIA [id number] [address] [place] [address] Sodium ?Tm Ur-sCnc o n 12-30-2020 Sodium Unsp time (U) [Moles/Vol] <20 Normal 14-216 [facility] Comment on above: Order Comment: Specimen Type : BLOOD SPECIMEN Performed By: #### PROCAL ## ## [facility] CLIA [id number] [address] [place] [address] US KIDNEY/BLADDER on 12-30-2020 US KIDNEY/BLADDER * * *Final Report* * * Normal [facility] DATE OF EXAM: Dec 30 2020 11:43AM Center AKU 1055 - US KIDNEY/BLADDER / PROCEDURE REASON: Renal failure, acute (kidney injury) * * * * Physician Interpretation * * * * EXAMINATION: RENAL ULTRASOUND CLINICAL HISTORY: Acute kidney injury. TECHNIQUE: Sonography of the kidneys and urinary bladd er is performed. Images are obtained and stored in a permanent archive. MQ: UR_1 COMPARISON: Abdomen radiograph 12/27/2020 and outside C T abdomen and pelvis study 12/23/2020 RESULT: Limitations: Body habitus. Right Kidney: -Renal length: 13.3 cm -Parenchyma: Poor corticomedullary differentiation. 1 cm parenchymal thickness. -Collecting system: No hydronephrosis. -Calculus: No echogenic, shadowing calculus. -Lesion: None. Left Kidney: -Renal length: 12.9 cm -Parenchyma: Poor corticomedullary differentiation. 1 cm parenchymal thickness. -Collecting system: No hydronephrosis. -Calculus: No echogenic, shadowing calculus. -Lesion: None. Bladder: Collapsed by a [facility] catheter. IMPRESSION: No hydronephrosis. Collapsed urinary bladder Poll Watcher: ABRAM Transcribe Date/Time: Dec 30 2020 2:01P Dictated by : JOSETTE SHARPE MD This examination was interpreted and the report review ed and electronically signed by: JOSETTE SHARPE MD on Dec 30 2020 2:03PM EST [id number] Basic metabolic 2000 panel on 12-29-2020 Anion gap [Moles/Vol] 8 mmol/L Low 9-18 [facility] Comment on above: Order Comment: Specimen Type : BLOOD SPECIMEN Performed By: #### PROCAL ## ## [facility] CLIA [id number] [address] [place] [address] Calcium [Mass/Vol] 8.7 mg/dL Normal 8.5-10.2 [facility] Comment on above: Order Comment: Specimen Type : BLOOD SPECIMEN Performed By: #### PROCAL ## ## [facility] CLIA [id number] [address] [place] [address] Chloride [Moles/Vol] 104 mmol/L Normal 97-105 [facility] Comment on above: Order Comment: Specimen Type : BLOOD SPECIMEN Performed By: #### PROCAL ## ## [facility] CLIA [id number] [address] [place] [address] CO2 [Moles/Vol] 23 mmol/L Normal 22-30 [facility] Comment on above: Order Comment: Specimen Type : BLOOD SPECIMEN Performed By: #### PROCAL ## ## [facility] CLIA [id number] [address] [place] [address] Creatinine [Mass/Vol] 1.50 mg/dL High 0.58-0.96 [facility] Comment on above: Order Comment: Specimen Type : BLOOD SPECIMEN Performed By: #### PROCAL ## ## [facility] CLIA [id number] [address] [place] [address] GFR/1.73 sq M.predicted MDRD 42 mL/min/{1.73_m2} Normal [facility] (S/P/Bld) [Vol rate/Area] Ce nter Comment on above: Order Comment: Specimen Type : BLOOD SPECIMEN Result Comment: 35 eGFR (Estimated GFR) Units o f measure: mL/min/1.73 meters squared eGFR is derived from the ree xpressed MDRD Study equation using the following parameters: serum creatinine, age, gender and race. The creatinine assay has been calibrated to be traceable to IDMS. An eGFR <60 mL/min/1.73m2 for >3 mo nths is consistent with chronic kidney disease. Refer to KDOQI guidelines for clinical interpretation. In patients with unstable renal function, e.g. those with acute k idney injury, the eGFR may n ot accurately reflect actual GFR. Performed By: #### PROCAL ## ## [facility] CLIA [id number] [address] [place] [address] Glucose [Mass/Vol] 146 mg/dL High 74-99 [facility] Comment on above: Order Comment: Specimen Type : BLOOD SPECIMEN Result Comment: The [place] [employer] Association (ADA) provides guidance for cutoff values for fasting glucose and random glucose. The ADA defines fasting as no caloric intake for at least 8 hours. Fas ting plasma glucose results between 100 to 125 mg/dL indicate increased risk for diabetes (prediabetes). Fasting plasma glucose resul ts greater than or equal to 126 mg/dL meet the criteria for diagnosis of diabetes. In the absence of unequivocal hyperglycemia, results should be confirmed by repeat testing. In a patient with classic s ymptoms of hyperglycemia or hyperglycemic crisis, random plasma glucose results greater than or equal to 200 mg/dL meet the criteria for diagnosis of diabetes. Reference: Standards of [facility] Care in Diabetes 2016, [place] [employer] Association. Diabetes Care. 2016.39(Suppl 1). Performed By: #### PROCAL ## ## [facility] CLIA [id number] [address] [place] [address] Potassium [Moles/Vol] 3.2 mmol/L Low 3.7-5.1 [facility] Comment on above: Order Comment: Specimen Type : BLOOD SPECIMEN Performed By: #### PROCAL ## ## [facility] CLIA [id number] [address] [place] [address] Sodium [Moles/Vol] 135 mmol/L Low 136-144 [facility] Comment on above: Order Comment: Specimen Type : BLOOD SPECIMEN Performed By: #### PROCAL ## ## [facility] CLIA [id number] [address] [place] [address] Urea nitrogen [Mass/Vol] 21 mg/dL Normal 7-21 [facility] Comment on above: Order Comment: Specimen Type : BLOOD SPECIMEN Performed By: #### PROCAL ## ## [facility] CLIA [id number] [address] [place] [address] CBC panel Auto (Bld) on 12-29-2020 Erythrocyte distribution width 15.4 % High 11.5-15.0 [facility] (RBC) [Ratio] Comment on above: Order Comment: Specimen Type : BLOOD SPECIMEN Performed By: #### [id number] # ### [facility] CLIA [id number] [address] [place] [address] Hematocrit (Bld) [Volume 39.5 % Normal 36.0-46.0 [facility] fraction] Comment on above: Order Comment: Specimen Type : BLOOD SPECIMEN Performed By: #### 12116-5 # ### [facility] CLIA [id number] [address] [place] [address] Hemoglobin (Bld) [Mass/Vol] 12.6 g/dL Normal 11.5-15.5 [facility] Comment on above: Order Comment: Specimen Type : BLOOD SPECIMEN Performed By: #### 08763-7 # ### [facility] CLIA [id number] [address] [place] [address] MCH (RBC) [Entitic mass] 27.2 pg Normal 26.0-34.0 [facility] Comment on above: Order Comment: Specimen Type : BLOOD SPECIMEN Performed By: #### 83075-7 # ### [facility] CLIA [id number] [address] [place] [address] MCHC (RBC) [Mass/Vol] 31.9 g/dL Normal 30.5-36.0 [facility] Comment on above: Order Comment: Specimen Type : BLOOD SPECIMEN Performed By: #### [id number] # ### [facility] CLIA [id number] [address] [place] [address] MCV (RBC) [Entitic vol] 85.3 fL Normal 80.0-100.0 [facility] Comment on above: Order Comment: Specimen Type : BLOOD SPECIMEN Performed By: #### [id number] # ### [facility] CLIA [id number] [address] [place] [address] Nucleated RBC (Bld) [#/Vol] 10*3/uL Normal <0.01 [facility] Comment on above: Order Comment: Specimen Type : BLOOD SPECIMEN Performed By: #### [id number] # ### [facility] CLIA [id number] [address] [place] [address] Platelet mean volume (Bld) 11.0 fL Normal 9.0-12.7 [facility] [Entitic vol] Comment on above: Order Comment: Specimen Type : BLOOD SPECIMEN Performed By: #### 73109-8 # ### [facility] CLIA [id number] [address] [place] [address] Platelets (Bld) [#/Vol] 302 10*3/uL Normal 150-400 [facility] Comment on above: Order Comment: Specimen Type : BLOOD SPECIMEN Performed By: #### 11144-5 # ### [facility] CLIA [id number] [address] [place] [address] RBC (Bld) [#/Vol] 4.63 10*6/uL Normal 3.90-5.20 [facility] Comment on above: Order Comment: Specimen Type : BLOOD SPECIMEN Performed By: #### [id number] # ### [facility] CLIA [id number] [address] [place] [address] WBC (Bld) [#/Vol] 14.60 10*3/uL High 3.70-11.00 [facility] Comment on above: Order Comment: Specimen Type : BLOOD SPECIMEN Performed By: #### 82531-6 # ### [facility] CLIA [id number] [address] [place] [address] CONSULT PROG on 12-17 CONSULT PROG HNO ID: [id number] Normal [facility] Author: Dave Grady APRN.[facility] Center Service: Neurology General Author Type: Nurse Practitioner Type: Consult Progress Note Filed: 12/29/2020 9:42 AM Note Text: NEUROLOGY CONSULT PROGRESS NOTE SERVICE DATE: 12/29/2020 SERVICE TIME: 07 Current Attending Provider: Hugh Martinez MD Subjective Interval History: Today, Soni is improving neurologically. She is mor e awake and alert. Able to follow commands and answer questions. Discusse d plan of care and test results. No acute changes overnight, no new compl aints. Objective Physical Examination: Neurological: In bed, awake and alert to self and place. Follows commands. PERRL, EOMI. Face is symmetric. Visual acuity intact. Generalized weakness. Strength 2/5 bilaterally in UE a nd LE. Sensation intact to light touch. New Labs: WBC Date Value 12/28/2020 18.30 k/uL 12/27/2020 18.45 k/uL 12/27/2020 20.85 k/uL 04/29/2015 10.8 thou/cmm 04/28/2015 12.9 thou/cmm 04/26/2015 8.4 thou/cmm RBC Date Value 12/28/2020 4.93 m/uL 12/27/2020 5.19 m/uL 12/27/2020 5.44 m/uL 04/29/2015 3.65 mil/cmm 04/28/2015 3.67 mil/cmm 04/26/2015 3.77 mil/cmm Platelet Count Date Value 12/28/2020 258 k/uL 12/27/2020 278 k/uL 12/27/2020 292 k/uL 04/29/2015 336 thou/cmm 04/28/2015 330 thou/cmm 04/26/2015 310 thou/cmm BUN (mg/dL) Date Value 12/28/2020 14 12/27/2020 12 12/27/2020 12 04/28/2015 5 04/27/2015 5 04/26/2015 6 Creatinine (mg/dL) Date Value 12/28/2020 0.79 12/27/2020 0.75 12/27/2020 0.79 04/28/2015 0.87 04/27/2015 0.86 04/26/2015 0.81 CBC, Coags, BMP, Mg, Phos Recent Labs 12/28/20 0426 12/27/20 1435 12/27/20 0636 12/27/20 0023 12/27/20 0023 NA 139 136 139 < > 143 K 3.0* 3.2* 4.0 < > 2.6* CHLOR 106* 106* 107* < > 118* CO2 23 18* 18* 15.5* < > 14* GLUC 279* 319* 298* < > 127* CA 8.8 8.6 8.7 < > 6.1* MG 2.1 -- 2.7* -- 1.3* < > = values in this interval not displayed. Liver Function, Amylase, AND Lipase Recent Labs 12/28/206 12/27/20 0023 TPROT 5.9* 4.5* ALB 2.7* 2.0* ALT 12 9 AST 12* 11* ALKPHOS 121 83 TBILI 0.7 1.0 DATA: Diagnostic tests reviewed for today's visit: Most recent labs and imaging results. Impression/Recommendations Principal Problem: This is Soni Cramer, a 65 year old female has a ne urological examination that?is concerning for?PRES 2/2 sepsis, un controlled HTN, possible other metabolic derangements, and possible br eakthrough seizures.??Transferred from [facility] on 1 for further workup. ? Principal Problem: 1. Acute encephalopathy - MRI brain consistent with PRES, per Dr. Ro's revi ew, likely 2/2 hypertensive encephalopathy and or sepsis - patient was being treated for meningitis/encephaliti s at [place] - cefepime and acyclovir have been d/c'd, as they can worsen PRES - ID following, on vanco and ceftriaxone currently - CSF cx 12/26 no growth to date - HSV, enterovirus, WNV PCR pending.? - infectious workup per ID - has sz history - 20 min EEG - preliminary results no seizures, no epileptiform discharges - BEM read since 12/27- no seizures, no ictal tendencie s, will d/c BEM - seizure precautions - aspiration precautions - no AED at home, discussed with Dr. Ro, will d/c k eppra - SBP goal <160- work to normalize BP <140/90 - TTE to r/o endocarditis pending - replace electrolytes, maintain Mag >2 - will follow, please call with questions SIGNATURE: Dave Grady APRN.CNP PATIENT NAME: Olivia Cramer DATE: December 29, 2020 TIME: 9:38 AM 2081 Partial documentation from previous visit was copied a nd pasted, documentation has been reviewed and edited as necessar y for today's visit. CONSULT PROG HNO ID: [id number] [facility] Author: Chaparro Payton MD Ce nter Service: Infectious Disease Author Type: Physician Type: Consult Progress Note Filed: 12/29/2020 5:07 PM Note Text: PROGRESS NOTE INFECTIOUS DISEASE BRIEF SUMMARY: 65 year old female PMH of CHF, paroxysmal A. Fib, arth ritis, seizure disorder, takatsubo cardiomyopathy, CAD, hypothyroidis m, fibromyalgia, delayed gastric emptying study, Presented to [facility] 12/26 for Confused, pacing and agitated. ID consulted for acute encephalopathy, leukocytosis, concern for meningitis ASSESSMENT: 1. Encephalopathy - likely metabolic vs non-infectious cause. MRI brain 12/27 showed abnormal T2/FLAIR signal within bilat post erior parietal lobes, bilat medial occipatal lobes. DDx include PRES, encephalitis/meningitis. With CSF wbc of 2, I think th is is less likely infectious cause of encephalitis/meningitis 2. Leukocytosis Estimated Creatinine Clearance: 102.2 mL/min (based on SCr of 0.79 mg/dL). RECOMMENDATIONS: - monitor off abx - await CSF cx from [place] - await bcx Subjective SUBJECTIVE: Interval Events: 12/28 better mentation today, able to articulate words help me. I want to eat. abx discontinued 12/29 a+ox3 per hospitalist note. Active Antimicrobials (From admission, onward) Start Stop 12/27/20 1200 miconazole 2 % 1 application topical pow andra (LOTRIMIN AF, DESENEX) 1 application, TOPICAL, 2 TIMES DAILY 01/06/21 0859 Immunosuppressant: none Objective Medications: Current Facility-Administered Medications Medication Dose Route Frequency - aspirin, enteric coated 81 mg tab(s) 81 mg ORAL BRITTANI Y - sodium chloride 0.9 % (flush) 2-10 mL (BD POSIFLUSH) 2-10 mL INTRAVENOUS q 12 H - heparin 5,000 Units injection 5,000 Units SUBCUTANEO US q 12 H - sodium chloride 0.9 % (flush) 3-5 mL (BD POSIFLUSH) 3-5 mL INTRAVENOUS q 12 H - LORazepam 1 mg injection (ATIVAN) 1 mg INTRAVENOUS q 5 MIN PRN - dextrose 40 % 15 g 15 g ORAL PRN Or - glucagon 1 mg injection 1 mg INTRAMUSCULAR PRN Or - dextrose 50% in water 25 mL syringe 12.5 g INTRAVENO US PRN - hydrALAZINE 10 mg injection (APRESOLINE) 10 mg INTRA VENOUS q 6 H PRN - sodium chloride 0.9 % (flush) 2-10 mL (BD POSIFLUSH) 2-10 mL INTRAVENOUS DIRECTED PRN And - perflutren lipid microspheres 1.1 mg/mL 1.3 mL injec tion (DEFINITY) 1.3 mL INTRAVENOUS DIRECTED PRN - miconazole 2 % 1 application topical powder (LOTRIMI N AF, DESENEX) 1 application TOPICAL BID - insulin regular human injection (short acting) (Soledad KELLI R,HumuLIN R) SUBCUTANEOUS q 6 H - hydrALAZINE 25 mg tab(s) (APRESOLINE) 25 mg NASOGAST TERRI q 8 H - carvedilol 12.5 mg tab(s) (COREG) 12.5 mg NASOGASTRI C BID w MEALS - pill senior trainer (patient-specific) 1 Each Miscell. (Med .Supl.;Non-Drugs) PRN - insulin glargine 20 Units pen (long acting) (LANTUS SOLOSTAR, BASAGLAR KWIKPEN) 20 Units SUBCUTANEOUS q 12 H 12p/12a - insulin regular human 16 Units injection (short acti ng) (NovoLIN R,HumuLIN R) 16 Units SUBCUTANEOUS q 6 H - alteplase 2 mg catheter clearance solution (CATHFLO) 2 mg INTRALUMINAL ONCE OBJECTIVE: Physical Exam: BP 124/65 Pulse 84 Temp (Src) 98.8 (Axillary) Re sp 19 Ht 5' 5.984[per previously height documentation per review of EMR[ (1.68m) Wt 313 lb 4.8 oz (142.1kg) SpO2 96% BMI 50.59 kg/(m2) . O2 Therapy: Room Air Lines, Drains, and Airways Line Peripheral Assessment Short Right Hand 22 Gauge -- day s Central Line Double Lumen 12/26/20 Peripherally Insert ed (PICC) Left Arm 3 days Drain Indwelling Urinary Catheter 12/26/20 2300 Admission to Hospital [facility] 2 days GI Feed 12/27/20 1750 Gastric Right Naris 12 Fr 1 day Lab data: WBC Date Value 12/28/2020 18.30 k/uL 12/27/2020 18.45 k/uL 12/27/2020 20.85 k/uL 04/29/2015 10.8 thou/cmm 04/28/2015 12.9 thou/cmm 04/26/2015 8.4 thou/cmm 04/25/2015 9.2 thou/cmm 04/24/2015 13.4 thou/cmm Platelet Count Date Value 12/28/2020 258 k/uL 12/27/2020 278 k/uL 12/27/2020 292 k/uL 04/29/2015 336 thou/cmm 04/28/2015 330 thou/cmm 04/26/2015 310 thou/cmm 04/25/2015 313 thou/cmm 04/24/2015 321 thou/cmm Creatinine (mg/dL) Date Value 12/28/2020 0.79 12/27/2020 0.75 12/27/2020 0.79 12/27/2020 0.56 04/28/2015 0.87 04/27/2015 0.86 04/26/2015 0.81 04/25/2015 0.91 04/24/2015 0.86 Vancomycin (ug/mL) Date Value 12/28/2020 17.5 12/27/2020 17.9 AST (U/L) Date Value 12/28/2020 12 04/26/2015 19 ALT (U/L) Date Value 12/28/2020 12 04/26/2015 40 DATA: Diagnostic Tests Reviewed for Today's Visit: Most recent labs. Most recent imaging Microbiology data: Positive Micro-30 Days No results found for the last 720 hours. Chaparro Payton MD Infectious Disease Respiratory [place] Pager: [phone] NUTRITION on 021 NUTRITION HNO ID: [id number] [facility] Author: Carmen Siddiqi RD General Service: Nutrition Therapy M edical Author Type: [facility] Type: Nutrition Filed: 12/29/2020 2:11 PM Note Text: NUTRITION THERAPY PROGRESS NOTE SERVICE DATE: 12/29/2020 SERVICE TIME: 1000 AM Nutrition Assessment: Recommended Malnutrition Diagnosis: No Malnutrition Id entified (12/27/20 1000 : Dawna Adan RD) Estimated kilocalorie needs: [id number] Calorie Calculation Method: 25-30 kcals/kg Estimated protein needs (grams): 71-89 Grams protein determined by: 1.2 - 1.5 g/kg;[place] body weight Care Plan: Continue current diet Refer to: Speech/Language Recommend nocturnal TF to support po intake and adjust as po tolerated Enteral Nutrition Tube Feeding Formula Type: Isosource 1.5 Goal Rate (mL/hr x hours): 40 mL/hr over 12 hours 7P-7 A provides 480 mL product - 720 kcal, 33 gm protein, and 367 mL free danae er - adjust based on po Water Flush Volume (mL x frequency: Flush 60 mL every 4 hours and adjust based on po Recommended Enteral Access: Small bore feeding tube Monitor and Evaluation: Monitor fluid/electrolyte rosalino nce;Meet greater than 75% of estimated needs;Monitor bowel function;Mon itor tolerance to tube feeding;Monitor labs, I/Os, vital signs, weight Interval History: 65 yo female, LOS 2 days, diet advan nestor today. Noted acute encephalopathy, ID and Endo following, awaiting results from LP, continues on antibiotics. Meds and labs reviewed, TF s topped, no BM this admission, noted edema, GI wnl. Recommend supplements TF nocturnal to support nutrition as diet tolerated. ACTIVE PROBLEM LIST Tuberculosis of Lung, Nodular, Confirmation Unspecifie d Diarrhea Nausea AND Vomiting Seizures (Hcc) Obesity, Class III, BMI >= 40 Type 2 Diabetes Mellitus With Hyperglycemia (Hcc) Insulin Resistance Diabetic Ketoacidosis With Coma Associated With Type 2 Diabetes Mellitus (Hcc) Encephalopathy Anthropometrics: Height: 167.6 cm (5' 5.98) (per previously height doc umentation per review of EMR) Weight: (!) 142.1 kg (313 lb 4.8 oz) Dosing Weight: 59 kg (130 lb 1.1 oz) Usual Weight: (Patient not answering any qeustions- pe r wt hx appears to be mostly 285 lbs back in 07/2018) Body mass index is 50.59 kg/m?. Morbidly Obese Weight change percentage over time: Wt gain over almos t 2 years per wt hx re Intake History: Current Intake: Less than 50% estimated energy needs O margie: 2 days, noted ST approval for diet progression and TF stopped Diet Orders (From admission, onward) Start Ordered 12/29/20 1245 DIET CARBOHYDRATE CONTROLLED START NOW Question Answer Comment Carbohydrate Control 3-5 CARBS/MEAL Food Consistency PUREED (L4) Liquid Consistency THIN LIQUID (L0) 12/29/20 1242 MNT Billing Type: Re-assess/15 min 2 units SIGNATURE: Carmen Siddiqi RD PATIENT NAME: Soni Cramer DATE: December 29, 2020 TIME: 2:06 PM PAGER: [phone] THERAPY NT on 2020 THERAPY NT HNO ID: [id number] Normal Janie richey Author: Tiera Camara CCC/PONY TRIMMER [facility] Service: Speech/Swallow Author Type: Speech Language Pathologist Type: Therapy (PT/OT/Speech/Resp) Filed: 12/29/2020 9:54 AM Note Text: Speech Therapy Clinical Swallow Evaluation SERVICE DATE: 12/29/2020 SERVICE TIME: 927 to 942 ROOM: [place] [address] IMPRESSION: Swallow Deficits Identified / Suspected: Oropharyngeal dysphagia Diet Recommendations: Pureed IDDSI Level 4 Thin Liquids IDDSI Level 0 Medications crushed in puree (pudding/applesauce) Swallowing Precautions Recommendations: 1:1 Supervision Alert (patient should be fully alert for P.O. intake) Feed / Eat at a slow rate Sit upright 90 degrees for all PO Small Bite/Sip Rigid Oral Hygiene Nursing Recommendations: See swallow guide posted in p atients room;Reinforce use of swallowing strategies Recommended Discharge Disposition: Subacute/SNF Justification for Recommended Discharge Disposition: P atient requires daily, facility-based rehabilitation from at least one discipline due to:;aspiration risk requiring ongoing medical manageme nt;dysphagia requiring frequent assessment and diet modification Current Hospital Course: 12/27 MRI Brain: abnormal T2/F LAIR signal within bilateral posterior parietal lobes, bilateral medial o ccipital lobes, and to lesser degree bilateral anterior frontal lobes near the vertex - differentials include PRES or encephalitis/meningitis; Chest xray: no acute abnormality Reason for Hospital Admission: confusion, seizures Rehabilitation Precautions: Aspiration Precautions;Dys phagia;Cognitive Linguistics Deficits;Communication Deficits;NPO NPO Precautions: Small Bore Feeding Tube Reason for Speech Therapy Consult: Confusion, dysphagi a Relevant Past Medical History: CAD, DM 2 Continue skilled PONY TRIMMER services due to : Dysphagia Speech Therapy Problem List: Dysphagia Patient Report: More water Current Status Oral Hygiene: Clear, dry oral cavity Dentition: Edentulous, Denture-Upper Full, Dentures No t Available During Assessment Current Feeding Method: Small Bore Feeding Tube Current Diet Textures: NPO with alternative means of nutrition/hydration/medication Current Level Of Communication: Verbal Current Management Of Secretions: Able to expectorate adequately Oral Motor Exam: Labial Assessment: Generalized weakness, Poor labial s eal Labial ROM Impaired: Bilateral Labial Strength Impaired: Bilateral Lingual Assessment: Generalized weakness Lingual ROM Impaired: Bilateral, Protrusion Lingual Strength Impaired: Bilateral Swallow Assessment Position Of Patient During Assessment: Upright In Bed Consistencies Presented: Ice Chips, Thin Liquids IDDSI Level 0, Pureed IDDSI Level 4 Compensatory Strategies Utilized During Assessment: 1: 1 Supervision, Alert (patient should be fully alert for P.O. intake), Feed / Eat at a slow rate, Sit upright 90 degrees for all PO, Small Bite/Si p Clinical Swallow Assessment Oral Pharyngeal Swallow Assessment: Preparatory / Oral Phase: Bolus Awareness: Impaired Oral Containment: Mildly Impaired Mastication: Suspect impairment Bolus Manipulation: Suspect impairment A-P Transit: Suspect impairment Oral Residue: Mildly Impaired Pharyngeal Phase: Initiation of Swallow: Suspect impairment Reflexive Throat Clear and Cough after Swallowing: No Multiple Swallows: No -Patient resting in bed on PONY TRIMMER arrival, woke easily an d agreeable to evaluation, fatigue as session progressed -PONY TRIMMER completed oral care with suction toothbrush prior to PO trials -Dependent on caregiver for feeding -Trace anterior loss on right with thin liquids and pu ree -Decreased labial seal on spoon, decreased bolus trans diane from spoon -Increased oral transit time, trace oral residue post swallow, able to clear with PONY TRIMMER facilitated liquid wash -Laryngeal movement detected upon palpation of swallow -No cough, throat clear, or change in vocal quality wi th po trials -Completed 3 oz water challenge with no cough, throat clear, or change in vocal quality - required breaks and appeared to have i ncreased work of breathing, denied SOB -Recommend diet and strategies as above -May benefit from instrumental assessment to further e valuate oropharyngeal swallow function as clinically indicated Functional Communication Measure (FCM) Current FCM Level: Swallowing Level FCM Swallowing Level: 4 Patient /Caregiver Goals: Eat/Drink Without Restrictio ns Goals for Plan of Care: Goals: SWALLOWING: Patient / Caregiver will demonstrat e knowledge of taught compensatory strategies and dietary consistency recommendations to optimize functional swallow function without overt cli nical signs and symptoms of aspiration or dysphagia Swallow Goals: Patient will tolerate Pureed IDDSI Level 4 diet consis tency while utilizing compensatory/swallowing strategies given min imal cues in 90% of trials so that the patient w ill minimize the sign (more content not included)... THERAPY NT HNO ID: [id number] Normal Janie richey Author: Chanda Aguayo OTR/[facility] Service: Occupational Therapy Author Type: Occupational Therapist Type: Therapy (PT/OT/Speech/Resp) Filed: 12/29/2020 2:24 PM Note Text: Occupational Therapy Evaluation SERVICE DATE: 12/29/2020 SERVICE TIME: 1330 to 1345 ROOM: [place] [address] Recommended Discharge Disposition: Acute Rehab Recommended Discharge Disposition Comments: pt complet venessa indep prior to admission; pt would benefit from acute rehab to maximi ze return to functional independence with ADLs, mobility, and cogni tion Recommended Discharge Disposition Due to: Patient requ ires an active, intensive rehabilitation therapy program due to:;ongoi ng intervention of multiple therapy disciplines;Patient requires daily, f acility-based rehabilitation from at least one discipline due to: OT 6 Clicks Score: 9 Precautions/Activity Restrictions: Fall Risk;Seizure;B ed/Chair Alarm Current Hospital Course: 65 yo female found by family at home confused, pacing, and agitated. Found to have acute encephalopat hy concerning for PRES 2/2 sepsis and hypertension and possible breakthr ough seizures Reason for Hospital Admission: confusion, seizures Relevant Past Medical History: CHF, PAF, RA, seizure d isorder, CAD s/p STEMI, pressure ulcers on feet, fibromyalgia, hx of CV A, morbid obesity Response to Therapy Interventions: Good participation in activities, Low activity tolerance, Needs frequent redirection or re-i nstruction, Requires additional time to complete activities, Multiple ongoi ng medical issues Continue skilled needs due to: Functional impairment, Safety concerns, Cognitive deficits Occupational Therapy Problem List: Cognitive Deficit;E ducation Deficit;Safety Deficits;Impaired Self Care;Decreased A ctivity Tolerance;Decreased Range Of Motion;Decreased Strength ;Functional Mobility Impairment;Balance Impaired;Edema;Pain Cognition/Communication Deficits Communication Deficits: Expressive Deficits Orientation Deficits: Confused, Not oriented to Time, Not oriented to Place, Not oriented to Situation Responsiveness: Awake Follows Commands: 1-step Commands, Cueing Needed Cueing to Follow Commands: Maximum Attention Deficits: Distractible Executive Function Deficits: Safety Awareness, Problem Solving, Insight to Deficits, Judgement, Motor Planning Judgement Deficit: Maximum impairment Insight to Deficits: Maximum impairment Problem Solving Deficit: Maximum impairment Motor Planning Deficit: Maximum impairment Safety Awareness Deficit: Maximum impairment Treatment Interventions: Education;Self Care / Home Ma nagement;Energy Conservation Training;Strengthening;Functional Mobilit y Training;Balance Training;Cognitive Training;Joint Mobility;Neuromuscul ar Re-education;Edema Management Plan for next visit: Cognition intervention, Grooming training, Sit to stand transfers Home Environment Patient Lives With: Family (reports lives with son, pe r chart preview sister says alone) Assistance Available: migration specialist Entry To Home: Stairs Number Of Stairs To Bed/Bath: 0 Prior Functional Level: Within Functional Limits;Requi red Assistance Assistance Required With: Transportation Prior Functional Level Comments: pt questionable selin nito reports lives with son whom works and pt mobilizes without devices a nd completes ADLs herself; sister assists with transportation Patient Report: pt agreeable to OT CURRENT FUNCTIONAL STATUS: Most recent performance Current Activities of Daily Living Assist Level Additi onal Information Feeding Maximal Assistance provided patient with max a ssist to perform feeding sitting edge of bed to eat a couple bites of m ashed potatoes and gravy and to drink water; instructed patient to grab c up and provided hand over hand assist to bring cup to mouth for drinking. P atient unable to manage utensils to feed self and requires max hand ove r hand assist and verbal cues to swallow between each bite. Grooming Maximal Assistance Bathing Upper Body Maximal Assistance Bathing Lower Body Total Assistance Dressing Upper Body Maximal Assistance Dressing Lower Body Total Assistance Toileting Total Assistance Functional Mobility Assist Level Additional Informatio n Rolling Maximal Assistance (x2) Supine to Sit Maximal Assistance (x2) provided patient with max assist x2 to bring BLE off of bed and to sit upright at edge of bed; once seated at edge of bed, patient demos fair sitting balance with p ositioning for feet flat on ground Sit to Supine Maximal Assistance (x2) provided patient with max assist x2 to transition back to supine in bed and provided kristi t to scoot to head of bed with pillow placement under bilat UEs for edema mgmt Scooting Maximal Assistance (x2) Sit to Stand Stand to Sit Bed to Chair Toilet/Commode Shower Functional Mobility Blank davalos indicate activity not attempted Hand Dominance: Right Range of Motion: ROM Limit (more content not included) ... THERAPY NT HNO ID: [id number] Normal Hooperyessenia richey Author: Colleen Henderson, [facility] Service: Physical Therapy Author Type: Physical Therapist Type: Therapy (PT/OT/Speech/Resp) Filed: 12/29/2020 3:21 PM Note Text: Physical Therapy Evaluation SERVICE DATE: 12/29/2020 SERVICE TIME: 1320 to 1335 ROOM: [id number] Recommended Discharge Disposition: Acute Rehab Recommended Discharge Disposition Comments: Patient in dependent prio to admission, will benefit greatly from Acute rehab to im prove strength and progress towards prior level of function, anticipate p atient will tolerate 3 hours of therapy a day Recommended Discharge Disposition Due to: Patient requ ires an active, intensive rehabilitation therapy program due to:;ADL i mpairment resulting in caregiver dependence;decline in functional status r equiring daily skilled care;deficits affecting dominant side;deficits affecting non-dominant side;less than 3/5 weakness noted in:;dis jennifer LE;ongoing intervention of multiple therapy disciplines PT 6 Clicks Score: 8 Precautions/Activity Restrictions: Fall Risk;Seizure;B ed/Chair Alarm Current Hospital Course: 65 yo female found by family at home confused, pacing, and agitated. Found to have acute encephalopat hy concerning for PRES 2/2 sepsis and hypertension and possible breakthr ough seizures Reason for Hospital Admission: confusion, seizures Relevant Past Medical History: CHF, PAF, RA, seizure d isorder, CAD s/p STEMI, pressure ulcers on feet, fibromyalgia, hx of CV A, morbid obesity Response to Therapy Interventions: Good participation in activities, Low activity tolerance, Pain, Requires additional time to complete activities Continue skilled needs due to: Continued monitoring of vital signs during mobility required, Functional mobility/skill impairmen ts, Safety concerns Physical Therapy Problem List: Decreased Activity Tole rocky;Decreased Range Of Motion;Decreased Strength;Functional Mobility Impairment;Balance Impaired Treatment Interventions: Education;Energy Conservation Training;Strengthening;Functional Mobility Training;Ba efren Training Plan for next visit: Bed mobility, Sit to Stand Transf ers, Sitting balance Home Environment Patient Lives With: Family (reports lives with son, pe r chart preview sister says alone) Assistance Available: migration specialist Entry To Home: Stairs Number Of Stairs Into Home: 1 Number Of Stairs To Bed/Bath: 0 Prior Functional Level: Within Functional Limits;Requi red Assistance Assistance Required With: Transportation Prior Functional Level Comments: pt questionable selin beauchamp reports lives with son whom works and pt mobilizes without devices a nd completes ADLs herself; sister assists with transportation Patient Report: Patient agreeable to PT session CURRENT FUNCTIONAL STATUS: Most recent performance Current Functional Mobility Assist Level Additional In formation Rolling Supine to Sit Maximal Assistance;Additional Informatio n (x2) physical assist to slide legs towards edge of bed, max assist a t trunk Sit to Supine Maximal Assistance;Additional Informatio n (x2) assist to control descent of trunk and assist BLE to clear bed Scooting Maximal Assistance;Additional Information x2 to HOB Sit to Stand Additional Information did not attempt th is date Stand to Sit Bed to Chair Toilet/Commode Gait Stairs Curb Step Car Transfer Blank davalos indicate activity not attempted Range of Motion: ROM Limitation Comments ROM Limitation Comments: decreased bilateral knee flex ion/extension Strength: Lower Extremity Comments Right Lower Extremity Strength Comments: grossly 3+/5 Left Lower Extremity Strength Comments: grossly 3/5 Balance: Static Sitting;Dynamic Sitting Static Sitting Balance: Good Patient able to maintain balance without handhold support, limited postural sway Dynamic Sitting Balance: Poor Patient unable to accept challenge or move without loss of balance Activity Tolerance: Sitting Activity Sitting Activity: sitting EOB Sitting Activity Tolerance (in minutes): 7 JH-HLM: 3: Sit at edge of bed Learning/Educational Needs: Functional Activities/Mobi lity;Rehabilitation Techniques and Procedures;Safety Goals for Plan of Care: Patient /Caregiver Goals: Other: See Comment (did not state ) Able to perform HEP with: Verbal Cues Only Transfer supine to/from sit with: Moderate Assistance Transfer sit to/from stand with: Moderate Assistance Ambulate with: Moderate Assistance Distance: 15' Device: Wheeled Walker Transfer: stand pivot transfer to chair with moderate assist Rehab Potential: Good Patient will be discontinued from Physical Therapy whe n no further skilled needs are identified in this setting. PLAN: Treatment Frequency (times per week): 5 (2-4) Current admission Plan of Care developed with: Patient TREATMENT INTERVENTIONS: Therapy Diagnosis: Reduced mobility-other;Muscle Weakn ess (generalized) Interventions Provided: Evaluation $ Evalu (more content not included)... ALLIED HEALTH on ALLIED HEALTH HNO ID: [id number] [facility] Author: Chaplain Lorena Student Service: Spiritual Care Author Type: Student Type: Allied Health Filed: 12/28/2020 3:47 PM Note Text: Summary: Spiritual Care Visit SPIRITUAL CARE PROGRESS NOTE SERVICE DATE: 12/28/2020 SERVICE TIME: 2:49pm Visited Patient during camouflage assembler rounds. Responded to p atient request to locate nursing assistance. To contact the Spiritual Care Department: Please call [phone]. SIGNATURE: Chaplain Lorena Student PATIENT PEYTON E: Soni Cramer DATE: December 28, 2020 TIME: 3:45 PM PAGER/CONTACT #: [phone] CBC W Auto Differential panel (Bld) on 12-28-2020 Basophils (Bld) [#/Vol] 0.09 10*3/uL Normal <0.11 [facility] Comment on above: Order Comment: Specimen Type : BLOOD SPECIMEN Performed By: #### [id number] # ###[facility]ORATORYCLIA [id number] [place] [address] Basophils/100 WBC (Bld) 0.5 % Normal [facility] Comment on above: Order Comment: Specimen Type : BLOOD SPECIMEN Performed By: #### 87781-9 # ###[facility]ORYCL[facility] [id number] [place] [address] Differential cell count method Nom (Bld) Auto Normal [facility] Comment on above: Order Comment: Specimen Type : BLOOD SPECIMEN Performed By: #### [id number] # ###[facility]CLIA [id number] [place] [address] Eosinophils (Bld) [#/Vol] 0.39 10*3/uL Normal <0.46 [facility] Comment on above: Order Comment: Specimen Type : BLOOD SPECIMEN Performed By: #### 73141-5 # ###[facility]ORYCLIA [id number] [place] [address] Eosinophils/100 WBC (Bld) 2.1 % Normal [facility] Comment on above: Order Comment: Specimen Type : BLOOD SPECIMEN Performed By: #### 99149-2 # ###[facility]ORYCLIA [id number] [place] [address] Erythrocyte distribution width 15.1 % High 11.5-15.0 [facility] (RBC) [Ratio] Comment on above: Order Comment: Specimen Type : BLOOD SPECIMEN Performed By: #### 52372-8 # ###[facility]ORYCLIA [id number] [place] [address] Hematocrit (Bld) [Volume 41.0 % Normal 36.0-46.0 [facility] fraction] Comment on above: Order Comment: Specimen Type : BLOOD SPECIMEN Performed By: #### 63010-6 # ###[facility]ORYCLIA [id number] [place] [address] Hemoglobin (Bld) [Mass/Vol] 13.4 g/dL Normal 11.5-15.5 [facility] Comment on above: Order Comment: Specimen Type : BLOOD SPECIMEN Performed By: #### 71328-5 # ###[facility]CLIA [id number] [place] [address] IMMATURE GRAN % 0.6 % Normal [facility] Comment on above: Order Comment: Specimen Type : BLOOD SPECIMEN Performed By: #### 79035-3 # ###[facility]ORYCLIA [id number] [place] [address] IMMATURE GRAN ABS 0.11 k/uL High <0.10 [facility] Comment on above: Order Comment: Specimen Type : BLOOD SPECIMEN Performed By: #### 17479-6 # ###[facility]ORYCLIA [id number] [place] [address] Lymphocytes (Bld) [#/Vol] 1.29 10*3/uL Normal 1.00-4.00 [facility] Comment on above: Order Comment: Specimen Type : BLOOD SPECIMEN Performed By: #### 73740-3 # ###[facility]ORYCLIA [id number] [place] [address] Lymphocytes/100 WBC (Bld) 7.0 % Normal [facility] Comment on above: Order Comment: Specimen Type : BLOOD SPECIMEN Performed By: #### 00467-0 # ###[facility]ORYCLIA [id number] [place] [address] MCH (RBC) [Entitic mass] 27.2 pg Normal 26.0-34.0 [facility] Comment on above: Order Comment: Specimen Type : BLOOD SPECIMEN Performed By: #### 12191-2 # ###[facility]ORYCLIA [id number] [place] [address] MCHC (RBC) [Mass/Vol] 32.7 g/dL Normal 30.5-36.0 [facility] Comment on above: Order Comment: Specimen Type : BLOOD SPECIMEN Performed By: #### 95954-0 # ###[facility]ORYCLIA [id number] [place] [address] MCV (RBC) [Entitic vol] 83.2 fL Normal 80.0-100.0 [facility] Comment on above: Order Comment: Specimen Type : BLOOD SPECIMEN Performed By: #### 25697-8 # ###[facility]ORYCLIA [id number] [place] [address] Monocytes (Bld) [#/Vol] 1.73 10*3/uL High <0.87 [facility] Comment on above: Order Comment: Specimen Type : BLOOD SPECIMEN Performed By: #### 91455-5 # ###[facility]ORYCLIA [id number] [place] [address] Monocytes/100 WBC (Bld) 9.5 % Normal [facility] Comment on above: Order Comment: Specimen Type : BLOOD SPECIMEN Performed By: #### 70269-4 # ###[facility]ORYCLIA [id number] [place] [address] Neutrophils (Bld) [#/Vol] 14.69 10*3/uL High 1.45-7.50 [facility] Comment on above: Order Comment: Specimen Type : BLOOD SPECIMEN Performed By: #### 07602-7 # ###[facility]ORYCLIA [id number] [place] [address] Neutrophils/100 WBC (Bld) 80.3 % Normal [facility] Comment on above: Order Comment: Specimen Type : BLOOD SPECIMEN Performed By: #### 06307-9 # ###[facility]ORYCLIA [id number] [place] [address] Nucleated RBC (Bld) [#/Vol] 10*3/uL Normal <0.01 [facility] Comment on above: Order Comment: Specimen Type : BLOOD SPECIMEN Performed By: #### 09659-9 # ###[facility]ATORYCLIA [id number] [place] [address] Nucleated RBC/100 WBC (Bld) 0.0 /100 WBC Normal 0.0 [facility] [Ratio] Comment on above: Order Comment: Specimen Type : BLOOD SPECIMEN Performed By: #### 62496-9 # ###[facility]ATORYCLIA [id number] [place] [address] Platelet mean volume (Bld) 10.4 fL Normal 9.0-12.7 [facility] [Entitic vol] Comment on above: Order Comment: Specimen Type : BLOOD SPECIMEN Performed By: #### 63290-5 # ###[facility]ORATORYCLIA [id number] [place] [address] Platelets (Bld) [#/Vol] 258 10*3/uL Normal 150-400 [facility] Comment on above: Order Comment: Specimen Type : BLOOD SPECIMEN Performed By: #### 15732-4 # ###[facility] LABORATORYCLIA [id number] [place] [address] RBC (Bld) [#/Vol] 4.93 10*6/uL Normal 3.90-5.20 [facility] Comment on above: Order Comment: Specimen Type : BLOOD SPECIMEN Performed By: #### 52447-1 # ###[facility]ORATORYCLIA [id number] [place] [address] WBC (Bld) [#/Vol] 18.30 10*3/uL High 3.70-11.00 [facility] Comment on above: Order Comment: Specimen Type : BLOOD SPECIMEN Performed By: #### 72864-4 # ###[facility]ORATORYCLIA [id number] [place] [address] CONSULT PROG on 12-17 CONSULT PROG HNO ID: [id number] Normal [facility] Author: Chaparro Payton MD Ce nter Service: Infectious Disease Author Type: Physician Type: Consult Progress Note Filed: 12/28/2020 5:37 PM Note Text: PROGRESS NOTE INFECTIOUS DISEASE BRIEF SUMMARY: 65 year old female PMH of CHF, paroxysmal A. Fib, arth ritis, seizure disorder, takatsubo cardiomyopathy, CAD, hypothyroidis m, fibromyalgia, delayed gastric emptying study, Presented to [facility] 12/26 for Confused, pacing and agitated. ID consulted for acute encephalopathy, leukocytosis, concern for meningitis ASSESSMENT: 1. Encephalopathy - likely metabolic vs non-infectious cause. MRI brain 12/27 showed abnormal T2/FLAIR signal within bilat post erior parietal lobes, bilat medial occipatal lobes. DDx include PRES, encephalitis/meningitis. With CSF wbc of 2, I think th is is less likely infectious cause of encephalitis/meningitis 2. Leukocytosis Most likely noninfectious cause of encephalopathy, mos t likely PRES from non-infectious etiology. She may have had initial seps is when she first presented to [place] but I do not think she has it now . BCx has been negative and CSF cx still negative. CSF analysis incon sistent with bacterial meninigitis. will d/c antibiotics and monito r progress. Patient today looks much better than yesterday Estimated Creatinine Clearance: 102.2 mL/min (based on SCr of 0.79 mg/dL). RECOMMENDATIONS: - d/cvancomycin + ceftriaxone - await CSF cx from [place] - monitor off antibiotic - await bcx Subjective SUBJECTIVE: Interval Events: 12/28 better mentation today, able to articulate words help me. I want to eat Active Antimicrobials (From admission, onward) Start Stop 12/27/20 1200 miconazole 2 % 1 application topical pow andra (LOTRIMIN AF, DESENEX) 1 application, TOPICAL, 2 TIMES DAILY 01/06/21 0859 12/27/20 1130 cefTRIAXone 1 g in D5W 100 mL MB+ (ROCEP HIN) 1 g, INTRAVENOUS, EVERY 24 HOURS -- 12/27/20 0200 vancomycin 2 g in D5W 500 mL (VANCOCIN) 0.015 g/kg/dose, INTRAVENOUS, EVERY 12 HOURS -- 12/27/20 0100 vancomycin dosing and monitoring per pha rmacy OTHER, DIRECTED -- Immunosuppressant: plaquenil Objective Medications: Current Facility-Administered Medications Medication Dose Route Frequency - aspirin, enteric coated 81 mg tab(s) 81 mg ORAL BRITTANI Y - sodium chloride 0.9 % (flush) 2-10 mL (BD POSIFLUSH) 2-10 mL INTRAVENOUS q 12 H - heparin 5,000 Units injection 5,000 Units SUBCUTANEO US q 12 H - sodium chloride 0.9 % (flush) 3-5 mL (BD POSIFLUSH) 3-5 mL INTRAVENOUS q 12 H - LORazepam 1 mg injection (ATIVAN) 1 mg INTRAVENOUS q 5 MIN PRN - vancomycin dosing and monitoring per pharmacy OTHER As Directed - vancomycin 2 g in D5W 500 mL (VANCOCIN) 0.015 g/kg/d ose INTRAVENOUS q 12 HR - dextrose 40 % 15 g 15 g ORAL PRN Or - glucagon 1 mg injection 1 mg INTRAMUSCULAR PRN Or - dextrose 50% in water 25 mL syringe 12.5 g INTRAVENO US PRN - insulin lispro pen (rapid acting) (HumaLOG KWIKPEN) SUBCUTANEOUS q 6 H - levETIRAcetam iv piggyback 500 mg in NaCl (iso-osmot ic) 100 mL (KEPPRA) 500 mg INTRAVENOUS BID - hydrALAZINE 10 mg injection (APRESOLINE) 10 mg INTRA VENOUS q 6 H PRN - cefTRIAXone 1 g in D5W 100 mL MB+ (ROCEPHIN) 1 g INT RAVENOUS q 24 H - sodium chloride 0.9 % (flush) 2-10 mL (BD POSIFLUSH) 2-10 mL INTRAVENOUS DIRECTED PRN And - perflutren lipid microspheres 1.1 mg/mL 1.3 mL injec tion (DEFINITY) 1.3 mL INTRAVENOUS DIRECTED PRN - miconazole 2 % 1 application topical powder (LOTRIMI N AF, DESENEX) 1 application TOPICAL BID OBJECTIVE: Physical Exam: BP 148/74 Pulse 91 Temp (Src) 98.2 (Axillary) Re sp 18 Ht 5' 5.984[per previously height documentation per review of EMR[ (1.68m) Wt 313 lb 4.8 oz (142.1kg) SpO2 96% BMI 50.59 kg/(m2) . O2 Therapy: Room Air Lines, Drains, and Airways Line Peripheral Assessment Short Right Hand 22 Gauge -- day s Central Line Double Lumen 12/26/20 Peripherally Insert ed (PICC) Left Arm 2 days Drain Indwelling Urinary Catheter 12/26/20 2300 [facility] to [facility] 1 day GI Feed 12/27/20 1750 Gastric Right Naris 12 Fr <1 day GENERAL APPEARANCE: Comfortable SKIN: No rashes or lesions LUNGS: Normal breath sounds, clear to auscultation, no wheezes, or crackles HEART:RRR, no murmurs ABDOMEN: Soft, non tender, BS+ EXTREMITIES: No edema or tenderness NEURO: Awake, alert, no involuntary motions Lab data: WBC Date Value 12/28/2020 18.30 k/uL 12/27/2020 18.45 k/uL 12/27/2020 20.85 k/uL 04/29/2015 10.8 thou/cmm 04/28/2015 12.9 thou/cmm 04/26/2015 8.4 thou/cmm 04/25/2015 9.2 thou/cmm 04/24/2015 13.4 thou/cmm Platelet Count Date Value 12/28/2020 258 k/uL 12/27/2020 278 k/uL 12/27/2020 292 k/uL 04/29/2015 336 thou/cmm 04/28/2015 330 thou/cmm 04/26/2015 310 thou/cmm 04/25/2015 313 thou/cmm 04/24/2015 321 thou/cmm Creatinine (mg/dL) Date Value 12/28/2020 0.79 12/27/2020 0.75 12/27/2020 0.79 (more content not included)... CONSULT PROG HNO ID: [id number] Normal [facility] Author: Dave Grady APRN.[facility] Center Service: Neurology General Author Type: Nurse Practitioner Type: Consult Progress Note Filed: 12/28/2020 11:04 AM Note Text: NEUROLOGY CONSULT PROGRESS NOTE SERVICE DATE: 12/28/2020 SERVICE TIME: 909 Current Attending Provider: Hugh Martinez MD Subjective Interval History: No acute overnight events. Patient in bed, awakens to speech. Alert to self and place, able to follow some commands, with gar bled speech noted. No new complaints. Objective Physical Examination: Neurological: In bed, awakens to speech, lethargic. Follows commands. PERRL, EOMI. Face is symmetric. Visual acuity intact. Generalized weakness. Strength 2 /5 bilaterally in UE and LE. New Labs: WBC Date Value 12/28/2020 18.30 k/uL 12/27/2020 18.45 k/uL 12/27/2020 20.85 k/uL 04/29/2015 10.8 thou/cmm 04/28/2015 12.9 thou/cmm 04/26/2015 8.4 thou/cmm RBC Date Value 12/28/2020 4.93 m/uL 12/27/2020 5.19 m/uL 12/27/2020 5.44 m/uL 04/29/2015 3.65 mil/cmm 04/28/2015 3.67 mil/cmm 04/26/2015 3.77 mil/cmm Platelet Count Date Value 12/28/2020 258 k/uL 12/27/2020 278 k/uL 12/27/2020 292 k/uL 04/29/2015 336 thou/cmm 04/28/2015 330 thou/cmm 04/26/2015 310 thou/cmm BUN (mg/dL) Date Value 12/28/2020 14 12/27/2020 12 12/27/2020 12 04/28/2015 5 04/27/2015 5 04/26/2015 6 Creatinine (mg/dL) Date Value 12/28/2020 0.79 12/27/2020 0.75 12/27/2020 0.79 04/28/2015 0.87 04/27/2015 0.86 04/26/2015 0.81 CBC, Coags, BMP, Mg, Phos Recent Labs 12/28/20 0426 12/27/20 1435 12/27/20 0636 12/27/20 0023 12/27/20 0023 NA 139 136 139 < > 143 K 3.0* 3.2* 4.0 < > 2.6* CHLOR 106* 106* 107* < > 118* CO2 23 18* 18* 15.5* < > 14* GLUC 279* 319* 298* < > 127* CA 8.8 8.6 8.7 < > 6.1* MG 2.1 -- 2.7* -- 1.3* < > = values in this interval not displayed. Liver Function, Amylase, AND Lipase Recent Labs 12/28/20 0426 12/27/20 0023 TPROT 5.9* 4.5* ALB 2.7* 2.0* ALT 12 9 AST 12* 11* ALKPHOS 121 83 TBILI 0.7 1.0 DATA: Diagnostic tests reviewed for today's visit: Most recent labs and imaging results. Impression/Recommendations This is Soni Ann Carlos, a 65 year old female has a ne urological examination that is concerning for PRES 2/2 sepsis, un controlled HTN, possible other metabolic derangements, and possible br eakthrough seizures. Transferred from [facility] on 12/26/20 for furth er workup. Principal Problem: 1. Acute encephalopathy - MRI brain consistent with PRES, per Dr. Ro's revi ew, likely 2/2 hypertensive encephalopathy and or sepsis - patient was being treated for meningitis/encephaliti s at [place] - cefepime and acyclovir have been d/c'd, as they can worsen PRES - ID following, on vanco and ceftriaxone currently - CSF cx 12/26 no growth to date - HSV, enterovirus, WNV PCR pending. - infectious workup per ID - has sz history - 20 min EEG - preliminary results no seizures, no epi leptiform discharges - overnight read per BEM- no seizures up through 10am - seizure precautions - aspiration precautions - c/w keppra 500mg BID for now, not on AED at home - SBP goal <160 - TTE to r/o endocarditis - replace electrolytes, maintain Mag >2 - will follow, please call with questions SIGNATURE: Dave Grady APRN.CNP PATIENT NAME: Olivia Cramer DATE: December 28, 2020 TIME: 10:44 AM 2081 Partial documentation from previous visit was copied a nd pasted, documentation has been reviewed and edited as necessar y for today's visit. CONSULT PROG HNO ID: [id number] [facility] Medical Author: Christiano Osei enter Service: Pharmacy Author Type: Pharmacist Type: Consult Progress Note Filed: 12/28/2020 4:33 PM Note Text: PHARMACY VANCOMYCIN DOSING NOTE Patient Name: Soni Cramer Admission D ate: 12/26/2020 Date of Consult: 12/28/2020 Time of Consult: 4:28 PM Indication: Source Unknown; empiric Goal Range: 15-25 mcg/mL RECOMMENDATIONS/PLAN: Pharmacy consulted for vancomycin dosing for Soni Cramer, a 65 year old, female who is being treated with vancomycin for e mpiric therapy, source unknown. 1. Patient is currently ordered Vancomycin 2 g q12h. T [place] is day 2 of current therapy. 2. The most recent vancomycin level was 17.5 mcg/mL dr johnson at 1500 on 12/28/20. This is a ~13 hour level on the 2nd day of . 3. The present dose of vancomycin is the recommended d [place] for this patient at this time. Continue therapy as prescribed. 4. The next vancomycin level will be ordered for @1300 unless clinically indicated sooner. (Pharmacy will order) We will follow patient renal function, vancomycin leve ls and doses with you during the course of therapy. Additional recommend ations will appear in follow up notes. If you have any questions, please contact pharmacy at ext [phone]. Age: [age] year old Allergies: ALLERGIES Allergen Reactions - Bactrim [Sulfametho* Hives - Toradol [Ketorolac] Other: See Comments Increase BP - Ciprofloxacin Rash - Flexeril [Cyclobenz* Rash - Metformin Other: See Comments Migraines Last 3 Encounter Wt Readings: Date: Wt: 12/26/2020 142.1 kg (313 lb 4.8 oz) 07/23/2018 129.3 kg (285 lb) 05/23/2018 129.3 kg (285 lb) Last 1 Encounter Ht Readings: Date: Ht: 12/26/2020 167.6 cm (5' 5.98) CrCl: >100 mL/min Temp (24hrs), Av.1 ?C (98.8 ?F), Min:36.8 ?C (98.2 ?F), Max:37.2 ?C (99 ?F) - Current Temp: 37.1 ?C (98.8 ?F) Labs BUN (mg/dL) Date Value 12/28/2020 14 12/27/2020 12 12/27/2020 12 04/28/2015 5 (L) 04/27/2015 5 (L) 04/26/2015 6 (L) Creatinine (mg/dL) Date Value 12/28/2020 0.79 12/27/2020 0.75 12/27/2020 0.79 04/28/2015 0.87 04/27/2015 0.86 04/26/2015 0.81 WBC Date Value 12/28/2020 18.30 k/uL (H) 12/27/2020 18.45 k/uL (H) 12/27/2020 20.85 k/uL (H) 04/29/2015 10.8 thou/cmm (H) 04/28/2015 12.9 thou/cmm (H) 04/26/2015 8.4 thou/cmm Vancomycin Levels: Vancomycin (ug/mL) Date/Time Value 12/28/2020 1503 17.5 12/27/2020 0103 17.9 [facility] Ext[facility] [phone] CONSULT PROG HNO ID: [id number] Normal [facility] Author: Giovanni Brennan PharmD Center Service: Pharmacy Author Type: Pharmacist Type: Consult Progress Note Filed: 12/28/2020 5:40 PM Note Text: PHARMACY VANCOMYCIN DOSING NOTE Patient Name: Soni Cramer Admission D ate: 12/26/2020 Date of Consult: 12/28/2020 Time of Consult: 5:39 PM Indication: Source Unknown; empiric Goal Range: 15-25 mcg/mL RECOMMENDATIONS/PLAN: Pharmacy consulted for vancomycin dosing for Soni Cramer, a 65 year old, female who is being treated with vancomycin for s ource unknown; empiric The primary service has discontinued vancomycin therap y. Pharmacy vancomycin dosing service will sign off. Thank you for allowing us to participate in this patient's care. Please contact [facility] if questions. Giovanni Brennan PharmD Comprehensive metabolic 2000 panel on 12-28-2020 Albumin [Mass/Vol] 2.7 g/dL Low 3.9-4.9 [facility] Comment on above: Order Comment: Specimen Type : BLOOD SPECIMEN Performed By: #### 2777-1, 2 4323-03, ####[facility] LABORATORYCLIA [id number] [place] [address] ALP [Catalytic activity/Vol] 121 U/L Normal 34-123 [facility] Comment on above: Order Comment: Specimen Type : BLOOD SPECIMEN Performed By: #### 2777-1, 2 4323-03, ####[facility] LABORATORYCLIA [id number] [place] [address] ALT With P-5'-P [Catalytic 12 U/L Normal 7-38 [facility] activity/Vol] Comment on above: Order Comment: Specimen Type : BLOOD SPECIMEN Performed By: #### 2777-1, 2 8, ####[facility]ATORYCLIA [id number] [place] [address] Anion gap [Moles/Vol] 10 mmol/L Normal 9-18 [facility] Comment on above: Order Comment: Specimen Type : BLOOD SPECIMEN Performed By: #### 2777-1, 2 8, ####[facility]ATORYCLIA [id number] [place] [address] AST With P-5'-P [Catalytic 12 U/L Low 13-35 A [facility] activity/Vol] Comment on above: Order Comment: Specimen Type : BLOOD SPECIMEN Performed By: #### 2777-1, 2 8, ####[facility]ATORYCLIA [id number] [place] [address] Bilirubin [Mass/Vol] 0.7 mg/dL Normal 0.2-1.3 [facility] Comment on above: Order Comment: Specimen Type : BLOOD SPECIMEN Performed By: #### 2777-1, 2 4323-03, ####[facility]ATORYCLIA [id number] [place] [address] Calcium [Mass/Vol] 8.8 mg/dL Normal 8.5-10.2 [facility] Comment on above: Order Comment: Specimen Type : BLOOD SPECIMEN Performed By: #### 2777-1, 2 4323-03, ####[facility]ORATORYCLIA [id number] [place] [address] Chloride [Moles/Vol] 106 mmol/L High 97-105 [facility] Comment on above: Order Comment: Specimen Type : BLOOD SPECIMEN Performed By: #### 2777-1, 2 8, ####[facility]ORATORYCLIA [id number] [place] [address] CO2 [Moles/Vol] 23 mmol/L Normal 22-30 [facility] Comment on above: Order Comment: Specimen Type : BLOOD SPECIMEN Performed By: #### 2777-1, 2 8, ####[facility]ORATORYCLIA [id number] [place] [address] Creatinine [Mass/Vol] 0.79 mg/dL Normal 0.58-0.96 [facility] Comment on above: Order Comment: Specimen Type : BLOOD SPECIMEN Performed By: #### 2777-1, 2 4323-8, ####[facility]ORATORYCLIA [id number] [place] [address] GFR/1.73 sq M.predicted MDRD mL/min/{1.73_m2} Normal [facility] (S/P/Bld) [Vol rate/Area] Ce nter Comment on above: Order Comment: Specimen Type : BLOOD SPECIMEN Result Comment: >60 eGFR (Estimated GFR) Units o f measure: mL/min/1.73 meters squared eGFR is derived from the ree xpressed MDRD Study equation using the following parameters: serum creatinine, age, gender and race. The creatinine assay has been calibrated to be traceable to IDMS. An eGFR <60 mL/min/1.73m2 for >3 mo nths is consistent with chronic kidney disease. Refer to KDOQI guidelines for clinical interpretation. In patients with unstable renal function, e.g. those with acute k idney injury, the eGFR may n ot accurately reflect actual GFR. Performed By: #### 2777-1, 2 4323-8, 45984-3 ####[facility]ORATORYCLIA [id number] [place] [address] Glucose [Mass/Vol] 279 mg/dL High 74-99 [facility] Comment on above: Order Comment: Specimen Type : BLOOD SPECIMEN Result Comment: The [place] Diabetes Association (ADA) provides guidance for cutoff values for fasting glucose and random glucose. The ADA defines fasting as no caloric intake for at least 8 hours. Fas ting plasma glucose results between 100 to 125 mg/dL indicate increased risk for diabetes (prediabetes). Fasting plasma glucose resul ts greater than or equal to 126 mg/dL meet the criteria for diagnosis of diabetes. In the absence of unequivocal hyperglycemia, results should be confirmed by repeat testing. In a patient with classic s ymptoms of hyperglycemia or hyperglycemic crisis, random plasma glucose results greater than or equal to 200 mg/dL meet the criteria for diagnosis of diabetes. Reference: Standards of [facility] Care in Diabetes 2016, [place] [employer] Association. Diabetes Care. 2016.39(Suppl 1). Performed By: #### 2777-1, 2 3-8, ####[facility] LABORATORYCLIA [id number] [place] [address] Potassium [Moles/Vol] 3.0 mmol/L Low 3.7-5.1 [facility] Comment on above: Order Comment: Specimen Type : BLOOD SPECIMEN Performed By: #### 2777-1, 2 8, ####[facility]ATORYCLIA [id number] [place] [address] Protein [Mass/Vol] 5.9 g/dL Low 6.3-8.0 [facility] Comment on above: Order Comment: Specimen Type : BLOOD SPECIMEN Performed By: #### 2777-1, 2 8, ####[facility]ORATORYCLIA [id number] [place] [address] Sodium [Moles/Vol] 139 mmol/L Normal 136-144 [facility] Comment on above: Order Comment: Specimen Type : BLOOD SPECIMEN Performed By: #### 2777-1, 2 4323-03, ####[facility]ORATORYCLIA [id number] [place] [address] Urea nitrogen [Mass/Vol] 14 mg/dL Normal 7-21 [facility] Comment on above: Order Comment: Specimen Type : BLOOD SPECIMEN Performed By: #### 2777-1, 2 8, ####[facility] LABORATORYCLIA [id number] [place] [address] Magnesium [facility] on 12-28-2020 Magnesium [Mass/Vol] 2.1 mg/dL Normal 1.7-2.3 [facility] Comment on above: Order Comment: Specimen Type : BLOOD SPECIMEN Performed By: #### 2777-1, 2 4322-8, 14419-8 ####[facility]ORATORYCLIA [id number] [place] [id number] NURSING PROG on 12-17 NURSING HNO ID: [id number] Normal [facility] Author: ALMA Acevedo l Service: ? Medical Author Type: Registered Nurse Center Type: Nursing Progress Note Filed: 12/28/2020 12:08 PM Note Text: Nursing Progress Note Patient Name: Soni Cramer Patient Location: [place] [address]/[id number] Daily Note: pt BP elevated. Dr. Michelle locke Will co ntinue to monitor. This note was completed by: Jessica Moreno Phosphate SerPl-mCnc on 12-28-2020 Phosphate [Mass/Vol] 2.0 mg/dL Low 2.7-4.8 [facility] Comment on above: Order Comment: Specimen Type : BLOOD SPECIMEN Performed By: #### 2777-1, 2 4323-8, 65265-7 ####[facility]ORATORYCLIA [id number] [place] [address] Vancomycin random [Mass/Vol] on 12-28-2020 Vancomycin [Mass/Vol] 17.5 ug/mL Normal 10.0-20.0 [facility] Comment on above: Order Comment: Specimen Type : BLOOD SPECIMEN Result Comment: Reference ra nges and high/low indicator flags are provided as general guidelin es only. The treating physician must determine appropriate target levels/dosing based on the specific clinical situation. Performed By: #### 4091-5 ## ##[facility]ORATORYCLIA [id number] [place] [id number] ALLIED HEALTH on ALLIED HEALTH HNO ID: [id number] Normal [facility] Medical Author: RT Judi(R) Jhoana regalado Service: Radiology Author Type: Massage Coordinator Type: Allied Health Filed: 12/27/2020 1:06 AM Note Text: Radiology Service Progress Note PATIENT NAME: Soni Cramer DATE OF SERVICE: December 27, 2020 TIME: 1:01 AM PATIENT IDENTITY VERIFICATION COMPLETED USING TWO (2) IDENTIFIERS: Name and Date of confirmed by patient verbally and Na me and Date of confirmed by identification band. FALL SCREENING: Has the patient had 2 falls in the las t year or 1 fall with injury or currently using an Ambulatory Assistive Device (Walker, Cane, Wheelchair, Crutches, etc.)? Inpatient: Screened on floor PATIENT GENDER DATA: Female. status: Pregnan t: No status: NO. PATIENT RELEVANT IMPLANT DATA REVIEWED: Not Applicable RADIOLOGY DEPARTMENT: General X-ray: Exam(s) Completed : Chest X-Ray PERIPHERAL IV DATA: Not applicable SIGNED BY: RT Josue(R) December 27, 2020 1:01 AM ALLIED HEALTH HNO ID: [id number] Normal [facility] Author: Anjali Tello RT(R) [place] Service: Radiology Author Type: Massage Coordinator Type: Allied Health Filed: 12/27/2020 10:03 AM Note Text: Radiology Service Progress Note PATIENT NAME: Soni Cramer DATE OF SERVICE: December 27, 2020 TIME: 10:03 AM PATIENT IDENTITY VERIFICATION COMPLETED USING TWO (2) IDENTIFIERS: Name and Date of confirmed by identification band. FALL SCREENING: Has the patient had 2 falls in the las t year or 1 fall with injury or currently using an Ambulatory Assistive Device (Walker, Cane, Wheelchair, Crutches, etc.)? Inpatient: Screened on floor PATIENT GENDER DATA: Female. status: Pregnan t: No status: NO. PATIENT RELEVANT IMPLANT DATA REVIEWED: Yes RADIOLOGY DEPARTMENT: MR; Exam(s) Completed: Head: Rou naldo Brain PERIPHERAL IV DATA: Not applicable SIGNED BY: RT Ju(R) December 27, 2020 10:03 AM ALLIED HEALTH HNO ID: [id number] [facility] Author: Helga Amaral RT(R) [place] Service: Radiology Author Type: Massage Coordinator Type: Allied Health Filed: 12/27/2020 12:55 PM Note Text: Radiology Service Progress Note PATIENT NAME: Soni Cramer DATE OF SERVICE: December 27, 2020 TIME: 12:55 PM PATIENT IDENTITY VERIFICATION COMPLETED USING TWO (2) IDENTIFIERS: Name and Date of confirmed by identification band. FALL SCREENING: Has the patient had 2 falls in the year or 1 fall with injury or currently using an Ambulatory Assistive Device (Walker, Cane, Wheelchair, Crutches, etc.)? Inpatient: Screened on floor PATIENT GENDER DATA: Female. status: Pregnan t: No status: NO. PATIENT RELEVANT IMPLANT DATA REVIEWED: Not Applicable RADIOLOGY DEPARTMENT: General X-ray: Exam(s) Completed : Chest X-Ray PERIPHERAL IV DATA: Not applicable SIGNED BY: RT William(R) December 27, 2020 12:55 PM ALLIED HEALTH HNO ID: [id number] Normal [facility] Author: RT Rich(R) Center Service: Radiology Author Type: Massage Coordinator Type: Allied Health Filed: 12/27/2020 7:01 PM Note Text: Radiology Service Progress Note PATIENT NAME: Soni Cramer DATE OF SERVICE: December 27, 2020 TIME: 7:01 PM PATIENT IDENTITY VERIFICATION COMPLETED USING TWO (2) IDENTIFIERS: Name and Date of confirmed by patient verbally and Na me and Date of confirmed by identification band. FALL SCREENING: Has the patient had 2 falls in the year or 1 fall with injury or currently using an Ambulatory Assistive Device (Walker, Cane, Wheelchair, Crutches, etc.)? Inpatient: Screened on floor PATIENT GENDER DATA: Female. status: Pregnan t: No status: N/A PATIENT RELEVANT IMPLANT DATA REVIEWED: Not Applicable RADIOLOGY DEPARTMENT: General X-ray: Exam(s) Completed : Abdomen X-Ray: Abdomen to include enteric tube. PERIPHERAL IV DATA: Not applicable SIGNED BY: RT Rich(R) December 27, 2020 7:01 PM Bacteria Bld Cult on 12-27-2020 Bacteria identified Cx Nom CULTURE, BLOOD: Normal [facility] (Bld) No growth 5 days Center Comment on above: Performed By: #### 600-7 ### #[facility] LABORATORYCLIA [id number] [place] [address] Performed By: #### 70085-8 # ### [facility] CLIA [id number] [address] [place] [address] Basic metabolic 2000 panel on 12-27-2020 Anion gap [Moles/Vol] 14 mmol/L Normal -18 [facility] Comment on above: Order Comment: Specimen Type : BLOOD SPECIMEN Performed By: #### 20816-6, 12997-9 ####[facility]ORATORYCLIA [id number] [facility] [address] Anion gap [Moles/Vol] 12 mmol/L Normal - [facility] Comment on above: Order Comment: Specimen Type : BLOOD SPECIMEN Performed By: #### 88456-5 # ###[facility]ORATORYCLIA [id number] [place] [address] Calcium [Mass/Vol] 8.7 mg/dL Normal 8.5-10.2 [facility] Comment on above: Order Comment: Specimen Type : BLOOD SPECIMEN Performed By: #### 50886-5, 04911-9 ####[facility] LABORATORYCLIA [id number] [place] [address] Calcium [Mass/Vol] 8.6 mg/dL Normal 8.5-10.2 [facility] Comment on above: Order Comment: Specimen Type : BLOOD SPECIMEN Performed By: #### 67175-5 # ###[facility]ORATORYCLIA [id number] [place] [address] Chloride [Moles/Vol] 107 mmol/L High 97-105 [facility] Comment on above: Order Comment: Specimen Type : BLOOD SPECIMEN Performed By: #### 90275-9, 08280-1 ####[facility] LABORATORYCLIA [id number] [facility] [place] [address] Chloride [Moles/Vol] 106 mmol/L High 97-105 [facility] Comment on above: Order Comment: Specimen Type : BLOOD SPECIMEN Performed By: #### 99225-4 # ###[facility] LABORATORYCLIA [id number] [place] [address] CO2 [Moles/Vol] 18 mmol/L Low 22-30 [facility] Comment on above: Order Comment: Specimen Type : BLOOD SPECIMEN Performed By: #### 24647-2, 34442-0 ####[facility] LABORATORYCLIA [id number] [place] [address] CO2 [Moles/Vol] 18 mmol/L Low 22-30 [facility] Comment on above: Order Comment: Specimen Type : BLOOD SPECIMEN Performed By: #### 82530-6 # ###[facility] LABORATORYCLIA [id number] [place] [address] Creatinine [Mass/Vol] 0.79 mg/dL Normal 0.58-0.96 [facility] Comment on above: Order Comment: Specimen Type : BLOOD SPECIMEN Performed By: #### 71647-4, 66517-8 ####[facility] LABORATORYCLIA [id number] [place] [address] Creatinine [Mass/Vol] 0.75 mg/dL Normal 0.58-0.96 [facility] Comment on above: Order Comment: Specimen Type : BLOOD SPECIMEN Performed By: #### 12765-7 # ###[facility] LABORATORYCLIA [id number] [place] [address] GFR/1.73 sq M.predicted MDRD mL/min/{1.73_m2} Normal [facility] (S/P/Bld) [Vol rate/Area] Ce nter Comment on above: Order Comment: Specimen Type : BLOOD SPECIMEN Result Comment: >60 eGFR (Estimated GFR) Units o f measure: mL/min/1.73 meters squared eGFR is derived from the ree xpressed MDRD Study equation using the following parameters: serum creatinine, age, gender and race. The creatinine assay has been calibrated to be traceable to IDMS. An eGFR <60 mL/min/1.73m2 for >3 mo nths is consistent with chronic kidney disease. Refer to KDOQI guidelines for clinical interpretation. In patients with unstable renal function, e.g. those with acute k idney injury, the eGFR may n ot accurately reflect actual GFR. Performed By: #### 55194-9, 47325-5 ####[facility] LABORATORYCLIA [id number] [place] [address] GFR/1.73 sq M.predicted MDRD mL/min/{1.73_m2} Normal [facility] (S/P/Bld) [Vol rate/Area] Ce nter Comment on above: Order Comment: Specimen Type : BLOOD SPECIMEN Result Comment: >60 eGFR (Estimated GFR) Units o f measure: mL/min/1.73 meters squared eGFR is derived from the ree xpressed MDRD Study equation using the following parameters: serum creatinine, age, gender and race. The creatinine assay has been calibrated to be traceable to IDNV. An eGFR <60 mL/min/1.73m2 for >3 mo nths is consistent with chronic kidney disease. Refer to KDOQI guidelines for clinical interpretation. In patients with unstable renal function, e.g. those with acute k idney injury, the eGFR may n ot accurately reflect actual GFR. Performed By: #### 91694-0 # ###[facility] LABORATORYCLIA [id number] [place] [address] Glucose [Mass/Vol] 298 mg/dL High 74-99 [facility] Comment on above: Order Comment: Specimen Type : BLOOD SPECIMEN Result Comment: The [place] Diabetes Association (ADA) provides guidance for cutoff values for fasting glucose and random glucose. The ADA defines fasting as no caloric intake for at least 8 hours. Fas ting plasma glucose results between 100 to 125 mg/dL indicate increased risk for diabetes (prediabetes). Fasting plasma glucose resul ts greater than or equal to 126 mg/dL meet the criteria for diagnosis of diabetes. In the absence of unequivocal hyperglycemia, results should be confirmed by repeat testing. In a patient with classic s ymptoms of hyperglycemia or hyperglycemic crisis, random plasma glucose results greater than or equal to 200 mg/dL meet the criteria for diagnosis of diabetes. Reference: Standards of [facility] Care in Diabetes 2016, [place] [employer] Association. Diabetes Care. 2016.39(Suppl 1). Performed By: #### 45355-1, 00598-2 ####[facility] LABORATORYCLIA [id number] [place] [address] Glucose [Mass/Vol] 319 mg/dL High 74-99 [facility] Comment on above: Order Comment: Specimen Type : BLOOD SPECIMEN Result Comment: The [place] Diabetes Association (ADA) provides guidance for cutoff values for fasting glucose and random glucose. The ADA defines fasting as no caloric intake for at least 8 hours. Fas ting plasma glucose results between 100 to 125 mg/dL indicate increased risk for diabetes (prediabetes). Fasting plasma glucose resul ts greater than or equal to 126 mg/dL meet the criteria for diagnosis of diabetes. In the absence of unequivocal hyperglycemia, results should be confirmed by repeat testing. In a patient with classic s ymptoms of hyperglycemia or hyperglycemic crisis, random plasma glucose results greater than or equal to 200 mg/dL meet the criteria for diagnosis of diabetes. Reference: Standards of [facility] Care in Diabetes 2016, [place] [employer]. Diabetes Care. 2016.39(Suppl 1). Performed By: #### 92967-2 # ###[facility] LABORATORYCLIA [id number] [place] [address] Potassium [Moles/Vol] 4.0 mmol/L Normal 3.7-5.1 [facility] Comment on above: Order Comment: Specimen Type : BLOOD SPECIMEN Performed By: #### 36647-1, 89444-4 ####[facility] LABORATORYCLIA [id number] [place] [address] Potassium [Moles/Vol] 3.2 mmol/L Low 3.7-5.1 [facility] Comment on above: Order Comment: Specimen Type : BLOOD SPECIMEN Performed By: #### 25049-9 # ###[facility] LABORATORYCLIA [id number] [place] [address] Sodium [Moles/Vol] 139 mmol/L Normal 136-144 [facility] Comment on above: Order Comment: Specimen Type : BLOOD SPECIMEN Performed By: #### 65417-1, 42166-4 ####[facility]ORATORYCLIA [id number] [place] [address] Sodium [Moles/Vol] 136 mmol/L Normal 136-144 [facility] Comment on above: Order Comment: Specimen Type : BLOOD SPECIMEN Performed By: #### 52133-6 # ###[facility]ORATORYCLIA [id number] [facility] [place] [address] Urea nitrogen [Mass/Vol] 12 mg/dL Normal - [facility] Comment on above: Order Comment: Specimen Type : BLOOD SPECIMEN Performed By: #### 17725-3, 78601-7 ####[facility] LABORATORYCLIA [id number] [place] [address] Urea nitrogen [Mass/Vol] 12 mg/dL Normal - [facility] Comment on above: Order Comment: Specimen Type : BLOOD SPECIMEN Performed By: #### 01380-5 # ###[facility]ORATORYCLIA [id number] [place] [address] CBC W Auto Differential panel (Bld) on 12-27-2020 Basophils (Bld) [#/Vol] 0.16 10*3/uL High <0.11 [facility] Comment on above: Order Comment: Specimen Type : BLOOD SPECIMEN Performed By: #### 77819-0 # ###[facility]ORATORYCLIA [id number] [place] [address] Basophils (Bld) [#/Vol] 0.11 10*3/uL High <0.11 [facility] Comment on above: Order Comment: Specimen Type : BLOOD SPECIMEN Performed By: #### 4091-5 ## ## [facility] CLIA [id number] [address] [place] [address] Basophils/100 WBC (Bld) 0.8 % Normal [facility] Comment on above: Order Comment: Specimen Type : BLOOD SPECIMEN Performed By: #### 68008-0 # ###[facility] LABORATORYCLIA [id number] [facility] [place] [address] Basophils/100 WBC (Bld) 0.6 % Normal [facility] Comment on above: Order Comment: Specimen Type : BLOOD SPECIMEN Performed By: #### 4091-5 ## ## [facility] CLIA [id number] [address] [place] [address] Differential cell count method Nom (Bld) Auto Normal [facility] Comment on above: Order Comment: Specimen Type : BLOOD SPECIMEN Performed By: #### 21559-5 # ###[facility] LABORATORYCLIA [id number] [place] [address] Differential cell count method Nom (Bld) Auto Normal [facility] Comment on above: Order Comment: Specimen Type : BLOOD SPECIMEN Performed By: #### 4091-5 ## ## [facility] CLIA [id number] [address] [place] [address] Eosinophils (Bld) [#/Vol] 0.20 10*3/uL Normal <0.46 [facility] Comment on above: Order Comment: Specimen Type : BLOOD SPECIMEN Performed By: #### 65986-9 # ###[facility] LABORATORYCLIA [id number] [facility] [place] [address] Eosinophils (Bld) [#/Vol] 0.28 10*3/uL Normal <0.46 [facility] Comment on above: Order Comment: Specimen Type : BLOOD SPECIMEN Performed By: #### 4091-5 ## ## [facility] CLIA [id number] [address] [place] [address] Eosinophils/100 WBC (Bld) 1.0 % Normal [facility] Comment on above: Order Comment: Specimen Type : BLOOD SPECIMEN Performed By: #### 18816-9 # ###[facility]ORATORYCLIA [id number] [place] [address] Eosinophils/100 WBC (Bld) 1.5 % Normal [facility] Comment on above: Order Comment: Specimen Type : BLOOD SPECIMEN Performed By: #### 4091-5 ## ## [facility] CLIA [id number] [address] [place] [address] Erythrocyte distribution width 15.0 % Normal 11.5-15.0 [facility] (RBC) [Ratio] Comment on above: Order Comment: Specimen Type : BLOOD SPECIMEN Performed By: #### 89043-3 # ###[facility]ORATORYCLIA [id number] [facility] [place] [address] Erythrocyte distribution width 15.2 % High 11.5-15.0 [facility] (RBC) [Ratio] Comment on above: Order Comment: Specimen Type : BLOOD SPECIMEN Performed By: #### 4091-5 ## ## [facility] CLIA [id number] [address] [place] [address] Hematocrit (Bld) [Volume 45.6 % Normal 36.0-46.0 [facility] fraction] Comment on above: Order Comment: Specimen Type : BLOOD SPECIMEN Performed By: #### 10940-0 # ###[facility]ORATORYCLIA [id number] [place] [address] Hematocrit (Bld) [Volume 43.6 % Normal 36.0-46.0 [facility] fraction] Comment on above: Order Comment: Specimen Type : BLOOD SPECIMEN Performed By: #### 4091-5 ## ## [facility] CLIA [id number] [address] [place] [address] Hemoglobin (Bld) [Mass/Vol] 14.9 g/dL Normal 11.5-15.5 [facility] Comment on above: Order Comment: Specimen Type : BLOOD SPECIMEN Performed By: #### 35488-5 # ###[facility] LABORATORYCLIA [id number] [place] [address] Hemoglobin (Bld) [Mass/Vol] 14.2 g/dL Normal 11.5-15.5 [facility] Comment on above: Order Comment: Specimen Type : BLOOD SPECIMEN Performed By: #### 4091-5 ## ## [facility] CLIA [id number] [address] [place] [address] IMMATURE GRAN % 0.6 % Normal [facility] Comment on above: Order Comment: Specimen Type : BLOOD SPECIMEN Performed By: #### 99139-9 # ###[facility]ORATORYCLIA [id number] [place] [address] IMMATURE GRAN % 0.5 % Normal [facility] Comment on above: Order Comment: Specimen Type : BLOOD SPECIMEN Performed By: #### 4091-5 ## ## [facility] CLIA [id number] [address] [place] [address] IMMATURE GRAN ABS 0.13 k/uL High <0.10 [facility] Comment on above: Order Comment: Specimen Type : BLOOD SPECIMEN Performed By: #### 19258-9 # ###[facility]ORATORYCLIA [id number] [facility] [address] IMMATURE GRAN ABS 0.10 k/uL High <0.10 [facility] Comment on above: Order Comment: Specimen Type : BLOOD SPECIMEN Performed By: #### 4091-5 ## ## [facility] CLIA [id number] [address] [place] [address] Lymphocytes (Bld) [#/Vol] 1.81 10*3/uL Normal 1.00-4.00 [facility] Comment on above: Order Comment: Specimen Type : BLOOD SPECIMEN Performed By: #### 27297-6 # ###[facility] LABORATORYCLIA [id number] [place] [address] Lymphocytes (Bld) [#/Vol] 1.62 10*3/uL Normal 1.00-4.00 [facility] Comment on above: Order Comment: Specimen Type : BLOOD SPECIMEN Performed By: #### 4091-5 ## ## [facility] CLIA [id number] [address] [place] [address] Lymphocytes/100 WBC (Bld) 8.7 % Normal [facility] Comment on above: Order Comment: Specimen Type : BLOOD SPECIMEN Performed By: #### 92018-0 # ###[facility]ORATORYCLIA [id number] [place] [address] Lymphocytes/100 WBC (Bld) 8.8 % Normal [facility] Comment on above: Order Comment: Specimen Type : BLOOD SPECIMEN Performed By: #### 4091-5 ## ## [facility] CLIA [id number] [address] [place] [address] MCH (RBC) [Entitic mass] 27.4 pg Normal 26.0-34.0 [facility] Comment on above: Order Comment: Specimen Type : BLOOD SPECIMEN Performed By: #### 17066-6 # ###[facility]ORATORYCLIA [id number] [place] [address] MCH (RBC) [Entitic mass] 27.4 pg Normal 26.0-34.0 [facility] Comment on above: Order Comment: Specimen Type : BLOOD SPECIMEN Performed By: #### 4091-5 ## ## [facility] CLIA [id number] [address] [place] [address] MCHC (RBC) [Mass/Vol] 32.7 g/dL Normal 30.5-36.0 [facility] Comment on above: Order Comment: Specimen Type : BLOOD SPECIMEN Performed By: #### 76930-2 # ###[facility] LABORATORYCLIA [id number] [place] [address] MCHC (RBC) [Mass/Vol] 32.6 g/dL Normal 30.5-36.0 [facility] Comment on above: Order Comment: Specimen Type : BLOOD SPECIMEN Performed By: #### 4091-5 ## ## [facility] CLIA [id number] [address] [place] [address] MCV (RBC) [Entitic vol] 83.8 fL Normal 80.0-100.0 [facility] Comment on above: Order Comment: Specimen Type : BLOOD SPECIMEN Performed By: #### 24511-0 # ###[facility] LABORATORYCLIA [id number] [place] [address] MCV (RBC) [Entitic vol] 84.0 fL Normal 80.0-100.0 [facility] Comment on above: Order Comment: Specimen Type : BLOOD SPECIMEN Performed By: #### 4091-5 ## ## [facility] CLIA [id number] [address] [place] [address] Monocytes (Bld) [#/Vol] 2.16 10*3/uL High <0.87 [facility] Comment on above: Order Comment: Specimen Type : BLOOD SPECIMEN Performed By: #### 01479-8 # ###[facility] LABORATORYCLIA [id number] [place] [address] Monocytes (Bld) [#/Vol] 1.96 10*3/uL High <0.87 [facility] Comment on above: Order Comment: Specimen Type : BLOOD SPECIMEN Performed By: #### 4091-5 ## ## [facility] CLIA [id number] [address] [place] [address] Monocytes/100 WBC (Bld) 10.4 % Normal [facility] Comment on above: Order Comment: Specimen Type : BLOOD SPECIMEN Performed By: #### 42532-0 # ###[facility]ORATORYCLIA [id number] [place] [address] Monocytes/100 WBC (Bld) 10.6 % Normal [facility] Comment on above: Order Comment: Specimen Type : BLOOD SPECIMEN Performed By: #### 4091-5 ## ## [facility] CLIA [id number] [address] [place] [address] Neutrophils (Bld) [#/Vol] 16.39 10*3/uL High 1.45-7.50 [facility] Comment on above: Order Comment: Specimen Type : BLOOD SPECIMEN Performed By: #### 25437-7 # ###[facility]ORATORYCLIA [id number] [place] [address] Neutrophils (Bld) [#/Vol] 14.38 10*3/uL High 1.45-7.50 [facility] Comment on above: Order Comment: Specimen Type : BLOOD SPECIMEN Performed By: #### 4091-5 ## ## [facility] CLIA [id number] [address] [place] [address] Neutrophils/100 WBC (Bld) 78.5 % Normal [facility] Comment on above: Order Comment: Specimen Type : BLOOD SPECIMEN Performed By: #### 83276-2 # ###[facility]ORATORYCLIA [id number] [place] [address] Neutrophils/100 WBC (Bld) 78.0 % Normal [facility] Comment on above: Order Comment: Specimen Type : BLOOD SPECIMEN Performed By: #### 4091-5 ## ## [facility] CLIA [id number] [address] [place] [address] Nucleated RBC (Bld) [#/Vol] 10*3/uL Normal <0.01 [facility] Comment on above: Order Comment: Specimen Type : BLOOD SPECIMEN Performed By: #### 96616-7 # ###[facility]ATORYCLIA [id number] [place] [address] Nucleated RBC (Bld) [#/Vol] 10*3/uL Normal <0.01 [facility] Comment on above: Order Comment: Specimen Type : BLOOD SPECIMEN Performed By: #### 4091-5 ## ## [facility] CLIA [id number] [address] [place] [address] Nucleated RBC/100 WBC (Bld) 0.0 /100 WBC Normal 0.0 [facility] [Ratio] Comment on above: Order Comment: Specimen Type : BLOOD SPECIMEN Performed By: #### 15914-3 # ###[facility]ORATORYCLIA [id number] [place] [address] Nucleated RBC/100 WBC (Bld) 0.0 /100 WBC Normal 0.0 [facility] [Ratio] Comment on above: Order Comment: Specimen Type : BLOOD SPECIMEN Performed By: #### 4091-5 ## ## [facility] CLIA [id number] [address] [place] [address] Platelet mean volume (Bld) 10.8 fL Normal 9.0-12.7 [facility] [Entitic vol] Comment on above: Order Comment: Specimen Type : BLOOD SPECIMEN Performed By: #### 40818-8 # ###[facility]ATORYCLIA [id number] [place] [address] Platelet mean volume (Bld) 10.7 fL Normal 9.0-12.7 [facility] [Entitic vol] Comment on above: Order Comment: Specimen Type : BLOOD SPECIMEN Performed By: #### 4091-5 ## ## [facility] CLIA [id number] [address] [place] [address] Platelets (Bld) [#/Vol] 292 10*3/uL Normal 150-400 [facility] Comment on above: Order Comment: Specimen Type : BLOOD SPECIMEN Performed By: #### 40388-3 # ###[facility]ORATORYCLIA [id number] [place] [address] Platelets (Bld) [#/Vol] 278 10*3/uL Normal 150-400 [facility] Comment on above: Order Comment: Specimen Type : BLOOD SPECIMEN Performed By: #### 4091-5 ## ## [facility] CLIA [id number] [address] [place] [address] RBC (Bld) [#/Vol] 5.44 10*6/uL High 3.90-5.20 [facility] Comment on above: Order Comment: Specimen Type : BLOOD SPECIMEN Performed By: #### 68814-4 # ###[facility] LABORATORYCLIA [id number] [place] [address] RBC (Bld) [#/Vol] 5.19 10*6/uL Normal 3.90-5.20 [facility] Comment on above: Order Comment: Specimen Type : BLOOD SPECIMEN Performed By: #### 4091-5 ## ## [facility] CLIA [id number] 1 [place] [address] WBC (Bld) [#/Vol] 20.85 10*3/uL High 3.70-11.00 [facility] Comment on above: Order Comment: Specimen Type : BLOOD SPECIMEN Performed By: #### 36308-2 # ###[facility]ATORYCLIA [id number] [place] [address] WBC (Bld) [#/Vol] 18.45 10*3/uL High 3.70-11.00 [facility] Comment on above: Order Comment: Specimen Type : BLOOD SPECIMEN Performed By: #### 4091-5 ## ## [facility] CLIA [id number] [address] [place] [address] CONSULT on 1 CONSULT HNO ID: [id number] [facility] Author: Chaparro Payton MD [facility] Service: Infectious Disease Author Type: Physician Type: Consults Filed: 12/27/2020 4:30 PM Note Text: INITIAL CONSULT INFECTIOUS DISEASE SERVICE DATE: 12/27/2020 SERVICE TIME: 8:50 AM We were asked to evaluate Ms. Soni Cramer, a 65 ye ar old yo female by Sidney Nova for acute encephalopathy, leukoc ytosis, concern for meningitis. Our findings and recommendations will be c ommunicated through the shared medical record. ASSESSMENT: 1. Encephalopathy - likely metabolic vs non-infectious cause. MRI brain 12/27 showed abnormal T2/FLAIR signal within bilat post erior parietal lobes, bilat medial occipatal lobes. DDx include PRES, encephalitis/meningitis. With CSF wbc of 2, I think th is is less likely infectious cause of encephalitis/meningitis 2. Leukocytosis Aware that neurology thinks this is more consistent wi th PRES, I do agree with that. Patient was on plaquenil for RA, ?possibili ty of PRES etiology. Agree with holding these medications. I have also call ed [facility] [facility] and thus far CSF cx is negative, including bcx x 2 negative. HSV, enterovirus, WNV PCR pending. CrCl cannot be calculated (Unknown ideal weight.). RECOMMENDATIONS: - Cont vancomycin + ceftriaxone - await CSF cx from [place] - If negative, will d/c abx - monitor off acyclovir - await bcx - ?Repeat LP to send for meningitis pcr profile + para neoplastic panel Subjective SUBJECTIVE: HPI: 65 year old female PMH of CHF, paroxysmal A. fib, arth ritis, seizure disorder, takatsubo cardiomyopathy, CAD, hypothyroidis m, fibromyalgia, delayed gastric emptying study, presented to [facility] 12/26 for Confused, pacing and agitated. ID consulted for acute encephalopathy, leukocytosis, concern for meningitis Upon review of her chart, back in July 2018 patien t was seen by neurologist voltage-gated potassium channel antibody b eing positive. At that time patient did not have any neurological defici t except for peripheral neuropathy which was consistent with diabet es. CT abd/pel 12/23/20 showed loop of thick-walled appearin g small bowel which contains a small fatty mass suspicious for probable li amanda, suspicious for enteritis. CSF w2-l90/prot?/glu69 CSF cx 12/26 ngtd bcx x 2 12/23 ngtd HSV1/2 pcr + enterovirus pcr + WNV pcr Active Antimicrobials (From admission, onward) Start Stop 12/27/20 1200 miconazole 2 % 1 application topical pow andra (LOTRIMIN AF, DESENEX) 1 application, TOPICAL, 2 TIMES DAILY 01/06/21 0859 12/27/20 1130 cefTRIAXone 1 g in D5W 100 mL MB+ (ROCEP HIN) 1 g, INTRAVENOUS, EVERY 24 HOURS -- 12/27/20 0200 vancomycin 2 g in D5W 500 mL (VANCOCIN) 0.015 g/kg/dose, INTRAVENOUS, EVERY 12 HOURS -- 12/27/20 0100 vancomycin dosing and monitoring per pha acy OTHER, DIRECTED -- Immunosuppressants: plaquenil Current other medications reviewed. Current Facility-Administered Medications Medication Dose Route Frequency - aspirin, enteric coated 81 mg tab(s) 81 mg ORAL BRITTANI Y - sodium chloride 0.9 % (flush) 2-10 mL (BD POSIFLUSH) 2-10 mL INTRAVENOUS q 12 H - heparin 5,000 Units injection 5,000 Units SUBCUTANEO US q 12 H - sodium chloride 0.9 % (flush) 3-5 mL (BD POSIFLUSH) 3-5 mL INTRAVENOUS q 12 H - LORazepam 1 mg injection (ATIVAN) 1 mg INTRAVENOUS q 5 MIN PRN - vancomycin dosing and monitoring per pharmacy OTHER As Directed - vancomycin 2 g in D5W 500 mL (VANCOCIN) 0.015 g/kg/d ose INTRAVENOUS q 12 HR - cefepime 1 g in D5W 100 mL MB+ (MAXIPIME) 1 g INTRAV ENOUS q 8 HR - NaCl 0.9% iv infusion 75 mL/hr INTRAVENOUS CONTINUOU S - dextrose 40 % 15 g 15 g ORAL PRN Or - glucagon 1 mg injection 1 mg INTRAMUSCULAR PRN Or - dextrose 50% in water 25 mL syringe 12.5 g INTRAVENO US PRN - insulin lispro pen (rapid acting) (HumaLOG KWIKPEN) SUBCUTANEOUS q 6 H - levETIRAcetam iv piggyback 500 mg in NaCl (iso-osmot ic) 100 mL (KEPPRA) 500 mg INTRAVENOUS BID - acyclovir 600 mg in D5W 100 mL (ZOVIRAX) 600 mg INTR AVENOUS q 8 H PAST MEDICAL HISTORY Diagnosis Date - Congestive heart failure (HCC) - Coronary artery disease - Diarrhea - Diarrhea - Hypothyroidism - PMH - PAST MEDICAL HISTORY OF high cholestrol - PMH - PAST MEDICAL HISTORY OF neck injury - Seizures (HCC) 12/26/2020 - Type II or unspecified type diabetes mellitus withou t mention of complication, not stated as uncontrolled - Unspecified essential hypertension PAST SURGICAL HISTORY Procedure Laterality Date - APPENDECTOMY 1973 - COLONOSCOP W/ OR W/O BRSH SPEC 06/19/2013 Colonoscopy - COLONOSCOPY W/BX 05/27/07 - EGD W/O OR W/BRUSH/WASH 06/19/2013 EGD - EGD W/O OR W/BRUSH/WASH 02/17/15 EGD - REMOVAL GALLBLADDER Cholecystectomy Social History Tobacco Use - Smoking status: Never Smoker - Smokeless tobacco: Never Used Substance Use Topics - Alcohol use: No - Drug use: No FAMILY HISTORY Problem Relation Age of Onset - Diabetes (more content not included)... CONSULT HNO ID: [id number] Normal [facility] Author: Cezar Ro Jr., MD Center Service: Neurology General Author Type: Physician Type: Consults Filed: 12/27/2020 1:13 PM Note Text: INITIAL CONSULT - GENERAL NEUROLOGY SERVICE DATE: 12/27/2020 SERVICE TIME: 930 AM Team Requesting Consult: Current Attending Provider: Opal Dhillon DO Neurology was asked by the Primary team to evaluate Mari Cramer, a 65 year old female for a chief complaint of Encephalopath y. Our recommendations of care will be communicated by shared medical record. Reason for Evaluation: Encephalopathy Subjective HPI: This is Ms. Soni Cramer a 65 year old female w/ PMH of PAF, RA, CHF, Takotsubo CM, CAD s/p PCI, HTN, QIAN, HLD, Hypothy roidism, Diverticulitis, Fibromyalgia, HX of CVA, Hx of seizure disorder, morbid obesity who presented to the hospital from [place] ED due to worsening confusion and agitation. Per chart review on 12/22 famil y found patient confused, agitated, covered in feces w. Last known nor mal being the day prior. In the outside ED patient found to be febrile a nd hypertensive. Patient labs showed Lactic acid of 2.7 -->1.8, no evid ence of UTI, Cr 1.33, WBC 24.7. CXR showed mild interstital prominence . Patient also found to be in DKA which has since resolved. Patient was adm itted to the ICU for encephlopathy and started on IV vancomycin/cefepime/fl agyl. Stool studies are pending. During her admission LP, EEG, CT head wer e completed but currently unable to find the official reads of this harjit. Currently patient is undergoing EEG. Neurology was con sulted for Acute Encephalopathy. Current Facility-Administered Medications Medication Dose Route Frequency aspirin, enteric coated 81 mg tab(s) 81 mg ORAL DAILY sodium chloride 0.9 % (flush) 2-10 mL (BD POSIFLUSH) 2 -10 mL INTRAVENOUS q 12 H heparin 5,000 Units injection 5,000 Units SUBCUTANEOUS q 12 H sodium chloride 0.9 % (flush) 3-5 mL (BD POSIFLUSH) 3- 5 mL INTRAVENOUS q 12 H LORazepam 1 mg injection (ATIVAN) 1 mg INTRAVENOUS q 5 MIN PRN vancomycin dosing and monitoring per pharmacy OTHER As Directed vancomycin 2 g in D5W 500 mL (VANCOCIN) 0.015 g/kg/dos e INTRAVENOUS q 12 HR cefepime 1 g in D5W 100 mL MB+ (MAXIPIME) 1 g INTRAVEN OUS q 8 HR NaCl 0.9% iv infusion 75 mL/hr INTRAVENOUS CONTINUOUS dextrose 40 % 15 g 15 g ORAL PRN Or glucagon 1 mg injection 1 mg INTRAMUSCULAR PRN Or dextrose 50% in water 25 mL syringe 12.5 g INTRAVENOUS PRN insulin lispro pen (rapid acting) (HumaLOG KWIKPEN) HAWKINS BCUTANEOUS q 6 H levETIRAcetam iv piggyback 500 mg in NaCl (iso-osmotic ) 100 mL (KEPPRA) 500 mg INTRAVENOUS BID acyclovir 600 mg in D5W 100 mL (ZOVIRAX) 600 mg INTRAV ENOUS q 8 H PAST MEDICAL HISTORY Diagnosis Date Congestive heart failure (HCC) Coronary artery disease Diarrhea Diarrhea Hypothyroidism PMH - PAST MEDICAL HISTORY OF high cholestrol PMH - PAST MEDICAL HISTORY OF neck injury Seizures (HCC) 12/26/2020 Type II or unspecified type diabetes mellitus without mention of complication, not stated as uncontrolled Unspecified essential hypertension PAST SURGICAL HISTORY Procedure Laterality Date APPENDECTOMY 1974 COLONOSCOP W/ OR W/O BRSH SPEC 06/19/2013 Colonoscopy COLONOSCOPY W/BX 05/27/07 EGD W/O OR W/BRUSH/WASH 06/19/2013 EGD EGD W/O OR W/BRUSH/WASH 02/17/15 EGD REMOVAL GALLBLADDER Cholecystectomy Social History Tobacco Use Smoking status: Never Smoker Smokeless tobacco: Never Used Substance Use Topics Alcohol use: No Drug use: No FAMILY HISTORY Problem Relation Age of Onset Diabetes Mother other (Crohn's disease) Mother other (Crohn's disease) Son other (Bone cancer) Father Diabetes Maternal Grandmother ALLERGIES Allergen Reactions Bactrim [Sulfametho* Hives Toradol [Ketorolac] Other: See Comments Increase BP Ciprofloxacin Rash Flexeril [Cyclobenz* Rash Metformin Other: See Comments Migraines REVIEW OF SYSTEMS: Unable to obtain due to current mental status Objective PHYSICAL EXAM: General Appearance: minimally follows commands, unable to speak, minimal responsive to pain Skin: Skin color, texture, turgor normal, no suspiciou s rashes or lesions Head: Normocephalic, no masses, lesions, tenderness or abnormalities Neck: Supple, no adenopathy; thyroid symmetric, normal size, no bruits Lhermitte's Phenomenon: Negative Lungs: bilateral coarse breath sounds noted Heart: irregularly irregular rhytm, no murmurs/rub/gal lops noted Carotid Auscultation: Without bruits Abdomen: Normal abdominal exam, Abdomen soft, non-tend er. Bowel sounds normal. No masses, organomegaly Extremities: No deformities, edema, skin discoloration , clubbing or cyanosis. Good capillary refill. Musculoskeletal: No joint swelling, deformity, or tend erness Peripheral Pulses: Normal Neurological: Mental Status: Follows commands, Lethargic. Cranial Nerves: CNII: No APD noted on exam CNIII, IV, : Pupils equal (more content not included )... CONSULT PROG on 12-17 CONSULT PROG HNO ID: [id number] Normal Janie [facility]hey Medical Author: Rachael Hurst [facility] Center Service: Pharmacy Author Type: Pharmacist Type: Consult Progress Note Filed: 12/27/2020 1:40 AM Note Text: PHARMACY VANCOMYCIN DOSING NOTE Patient Name: Soni Cramer Admission D ate: 12/26/2020 Date of Consult: 12/27/2020 Time of Consult: 1:36 AM Indication: Source Unknown; empiric Goal Range: 15-25 mcg/mL RECOMMENDATIONS/PLAN: Pharmacy consulted for vancomycin dosing for Soni Cramer, a 65 year old, female who is being treated with vancomycin for S ource Unknown; empiric 1. Patient is currently ordered Vancomycin 2 g q12h. T [place] is day 1 of therapy. 2. No vancomycin level has been drawn for this dosing regimen. 3. The present dose of vancomycin is the recommended d [place] for this patient at this time. Continue therapy as prescribed. 4. The next vancomycin level has been ordered for 12-28 at 1300 (Completed) Prior to 4th dose with goal trough And obese pt We will follow patient renal function, vancomycin leve ls and doses with you during the course of therapy. Additional recommend ations will appear in follow up notes. If you have any questions[place] [phone]. Age: [age] year old Allergies: ALLERGIES Allergen Reactions - Bactrim [Sulfametho* Hives - Toradol [Ketorolac] Other: See Comments Increase BP - Ciprofloxacin Rash - Flexeril [Cyclobenz* Rash - Metformin Other: See Comments Migraines Last 3 Encounter Wt Readings: Date: Wt: 12/26/2020 142.1 kg (313 lb 4.8 oz) 07/23/2018 129.3 kg (285 lb) 05/23/2018 129.3 kg (285 lb) Last 1 Encounter Ht Readings: Date: Ht: 07/23/2018 167.6 cm (5' 6) CrCl: 251.52 mL/min (calculated scr 0.56mg/dl Temp (24hrs), Av.6 ?C (99.7 ?F), Min:37.6 ?C (99.7 ?F), Max:37.6 ?C (99.7 ?F) - Current Temp: 37.6 ?C (99.7 ?F) Labs BUN (mg/dL) Date Value 12/27/2020 8 04/28/2015 5 (L) 04/27/2015 5 (L) 04/26/2015 6 (L) Creatinine (mg/dL) Date Value 12/27/2020 0.56 (L) 04/28/2015 0.87 04/27/2015 0.86 04/26/2015 0.81 WBC Date Value 12/27/2020 20.85 k/uL (H) 04/29/2015 10.8 thou/cmm (H) 04/28/2015 12.9 thou/cmm (H) 04/26/2015 8.4 thou/cmm Vancomycin Levels: No results found for: ZBIGNIEWELLE Rachael Hurst [facility] CONSULT PROG HNO ID: [id number] Normal [facility] Author: Laura Ojeda APRN.REGISTERED CLINICAL DIETITIAN Center Service: Wound/Ostomy Author Type: Nurse Specialist Type: Consult Progress Note Filed: 12/27/2020 11:15 AM Note Text: WOUND CARE CONSULT MASTIC SPRAYER NOTE SERVICE DATE: 12/27/2020 SERVICE TIME: 0830 TIME SPENT (minutes): 30 REASON FOR CONSULT: Eval heel wound CHIEF COMPLAINT: unable to obtain, non-verbal/ somnole nt Subjective HISTORY OF PRESENT ILLNESS: Ms. Cramer is a 65 year old female who is seen today for eval of heel wounds. Pt presented to [facility] as a transfer from [place] d/t [facility] and was found in at home confuse d and covered in feces. PMH per chart includes: CHF, PAF, RA, seizure d isorder, CAD s/p STEMI, takotsubo cardiomyopathy, CVA. Wound care servi rody consulted for eval of multiple wounds. PERTINENT REVIEW OF SYSTEMS: GENERAL: non-verbal, somnolent PAST MEDICAL HISTORY Diagnosis Date - Congestive heart failure (HCC) - Coronary artery disease - Diarrhea - Diarrhea - Hypothyroidism - PMH - PAST MEDICAL HISTORY OF high cholestrol - PMH - PAST MEDICAL HISTORY OF neck injury - Seizures (HCC) 12/26/2020 - Type II or unspecified type diabetes mellitus withou t mention of complication, not stated as uncontrolled - Unspecified essential hypertension PAST SURGICAL HISTORY Procedure Laterality Date - APPENDECTOMY 1973 - COLONOSCOP W/ OR W/O BRSH SPEC 06/19/2013 Colonoscopy - COLONOSCOPY W/BX 05/27/07 - EGD W/O OR W/BRUSH/WASH 06/19/2013 EGD - EGD W/O OR W/BRUSH/WASH 02/17/15 EGD - REMOVAL GALLBLADDER Cholecystectomy Social History Tobacco Use - Smoking status: Never Smoker - Smokeless tobacco: Never Used Substance Use Topics - Alcohol use: No - Drug use: No FAMILY HISTORY Problem Relation Age of Onset - Diabetes Mother - other (Crohn's disease) Mother - other (Crohn's disease) Son - other (Bone cancer) Father - Diabetes Maternal Grandmother MEDICATIONS: Current Facility-Administered Medications Medication Dose Route Frequency - aspirin, enteric coated 81 mg tab(s) 81 mg ORAL BRITTANI Y - sodium chloride 0.9 % (flush) 2-10 mL (BD POSIFLUSH) 2-10 mL INTRAVENOUS q 12 H - heparin 5,000 Units injection 5,000 Units SUBCUTANEO US q 12 H - sodium chloride 0.9 % (flush) 3-5 mL (BD POSIFLUSH) 3-5 mL INTRAVENOUS q 12 H - LORazepam 1 mg injection (ATIVAN) 1 mg INTRAVENOUS q 5 MIN PRN - vancomycin dosing and monitoring per pharmacy OTHER As Directed - vancomycin 2 g in D5W 500 mL (VANCOCIN) 0.015 g/kg/d ose INTRAVENOUS q 12 HR - cefepime 1 g in D5W 100 mL MB+ (MAXIPIME) 1 g INTRAV ENOUS q 8 HR - NaCl 0.9% iv infusion 75 mL/hr INTRAVENOUS CONTINUOU S - dextrose 40 % 15 g 15 g ORAL PRN Or - glucagon 1 mg injection 1 mg INTRAMUSCULAR PRN Or - dextrose 50% in water 25 mL syringe 12.5 g INTRAVENO US PRN - insulin lispro pen (rapid acting) (HumaLOG KWIKPEN) SUBCUTANEOUS q 6 H - levETIRAcetam iv piggyback 500 mg in NaCl (iso-osmot ic) 100 mL (KEPPRA) 500 mg INTRAVENOUS BID - acyclovir 600 mg in D5W 100 mL (ZOVIRAX) 600 mg INTR AVENOUS q 8 H ALLERGIES Allergen Reactions - Bactrim [Sulfametho* Hives - Toradol [Ketorolac] Other: See Comments Increase BP - Ciprofloxacin Rash - Flexeril [Cyclobenz* Rash - Metformin Other: See Comments Migraines Objective PHYSICAL EXAM: BP 166/77 Pulse 100 Temp 36.7 ?C (98.1 ?F) (Axilla ry) Resp 18 Wt (!) 142.1 kg (313 lb 4.8 oz) SpO2 95% BMI 50.57 kg/m? General appearance: elderly, frail appearing female, a ppears to have generalized edema. Non-responsive, non-verbal Respiratory: no resp distress noted Cardiovascular: + DP BLE Extremities: R heel stage1, L heel stage 2, L plantar foot DFU Integumentary: MAD/ stage 1 coccyx, groin w/ fungal/ i ntertrigo DATA Labs: wbc 7.39 WOUND ASSESSMENT: Wound Type: preswsure Location: left heel stage 2 Present on admission: yes Measurement: 6o8d1ed Wound Bed: serous fluid filled bulla Exudate: none Odor: none Periwound: localized erythema S/S of infection: none Local pulse: palpated Wound Type: diabetic foot ulcer Location: L plantar 1st met Present on admission: yes Measurement: approx 1x1cm Wound Bed: dry eschar Exudate: none Odor: none Periwound: dry, scaly S/S of infection: none Local pulse: palpated Pain: denies Wound Type: pressure Location: right heel stage 1 Present on admission: yes Measurement: diffuse non-blanching erythema Wound Type: pressure Location: coccyx stage 1/ Moisture associated dermatit is Present on admission: yes Measurement: diffuse non-blanching erythema/ along w/ moisture dermatitis Wound Type: fungal intertrigo Location: abd fold Present on admission: yes Measurement: diffuse moist, fungal appearing rash to a bd fold Wound Care Plan: Obtain a compella bed, turn every 2 hours, obtain truv ue boots, apply desenex to groin bid x 10 days, apply allevyn to coccy x. No need for dressing to L heel at this time. Apply joão lange (more content not included)... Comprehensive metabolic 2000 panel on 12-27-2020 Albumin [Mass/Vol] 2.0 g/dL Low 3.9-4.9 [facility] Comment on above: Order Comment: Specimen Type : BLOOD SPECIMEN Performed By: #### 4091-5 ## ## [facility] CLIA [id number] [address] [place] [address] ALP [Catalytic activity/Vol] 83 U/L Normal 34-123 [facility] Comment on above: Order Comment: Specimen Type : BLOOD SPECIMEN Performed By: #### 4091-5 ## ## [facility] CLIA [id number] [address] [place] [address] ALT With P-5'-P [Catalytic 9 U/L Normal 7-38 [facility] activity/Vol] Comment on above: Order Comment: Specimen Type : BLOOD SPECIMEN Performed By: #### 4091-5 ## ## [facility] CLIA [id number] [address] [place] [address] Anion gap [Moles/Vol] 11 mmol/L Normal 9-18 [facility] Comment on above: Order Comment: Specimen Type : BLOOD SPECIMEN Performed By: #### 4091-5 ## ## [facility] CLIA [id number] [address] [place] [address] AST With P-5'-P [Catalytic 11 U/L Low 13-35 [facility] activity/Vol] Comment on above: Order Comment: Specimen Type : BLOOD SPECIMEN Performed By: #### 4091-5 ## ## [facility] CLIA [id number] [address] [place] [address] Bilirubin [Mass/Vol] 1.0 mg/dL Normal 0.2-1.3 [facility] Comment on above: Order Comment: Specimen Type : BLOOD SPECIMEN Performed By: #### 4091-5 ## ## [facility] CLIA [id number] [address] [place] [address] Calcium [Mass/Vol] 6.1 mg/dL Low 8.5-10.2 [facility] Comment on above: Order Comment: Specimen Type : BLOOD SPECIMEN Performed By: #### 4091-5 ## ## [facility] CLIA [id number] [address] [place] [address] Chloride [Moles/Vol] 118 mmol/L High 97-105 [facility] Comment on above: Order Comment: Specimen Type : BLOOD SPECIMEN Performed By: #### 4091-5 ## ## [facility] CLIA [id number] [address] [place] [address] CO2 [Moles/Vol] 14 mmol/L Low 22-30 [facility] Comment on above: Order Comment: Specimen Type : BLOOD SPECIMEN Performed By: #### 4091-5 ## ## [facility] CLIA [id number] [address] [place] [address] Creatinine [Mass/Vol] 0.56 mg/dL Low 0.58-0.96 [facility] Comment on above: Order Comment: Specimen Type : BLOOD SPECIMEN Performed By: #### 4091-5 ## ## [facility] CLIA [id number] [address] [place] [address] GFR/1.73 sq M.predicted MDRD mL/min/{1.73_m2} Normal [facility] (S/P/Bld) [Vol rate/Area] Ce nter Comment on above: Order Comment: Specimen Type : BLOOD SPECIMEN Result Comment: >60 eGFR (Estimated GFR) Units o f measure: mL/min/1.73 meters squared eGFR is derived from the ree xpressed MDRD Study equation using the following parameters: serum creatinine, age, gender and race. The creatinine assay has been calibrated to be traceable to IDNV. An eGFR <60 mL/min/1.73m2 for >3 mo nths is consistent with chronic kidney disease. Refer to KDOQI guidelines for clinical interpretation. In patients with unstable renal function, e.g. those with acute k idney injury, the eGFR may n ot accurately reflect actual GFR. Performed By: #### 4091-5 ## ## [facility] CLIA [id number] [address] [place] [address] Glucose [Mass/Vol] 127 mg/dL High 74-99 [facility] Comment on above: Order Comment: Specimen Type : BLOOD SPECIMEN Result Comment: The [place] Diabetes Association (ADA) provides guidance for cutoff values for fasting glucose and random glucose. The ADA defines fasting as no caloric intake for at least 8 hours. Fas ting plasma glucose results between 100 to 125 mg/dL indicate increased risk for diabetes (prediabetes). Fasting plasma glucose resul ts greater than or equal to 126 mg/dL meet the criteria for diagnosis of diabetes. In the absence of unequivocal hyperglycemia, results should be confirmed by repeat testing. In a patient with classic s ymptoms of hyperglycemia or hyperglycemic crisis, random plasma glucose results greater than or equal to 200 mg/dL meet the criteria for diagnosis of diabetes. Reference: Standards of [facility] Care in Diabetes 2016, [place] Diabetes Association. Diabetes Care. 2016.39(Suppl 1). Performed By: #### 4091-5 ## ## [facility] CLIA [id number] [address] [place] [address] Potassium [Moles/Vol] 2.6 mmol/L Low 3.7-5.1 [facility] Comment on above: Order Comment: Specimen Type : BLOOD SPECIMEN Performed By: #### 4091-5 ## ## [facility] CLIA [id number] [address] [place] [address] Protein [Mass/Vol] 4.5 g/dL Low 6.3-8.0 [facility] Comment on above: Order Comment: Specimen Type : BLOOD SPECIMEN Performed By: #### 4091-5 ## ## [facility] CLIA [id number] [address] [place] [address] Sodium [Moles/Vol] 143 mmol/L Normal 136-144 [facility] Comment on above: Order Comment: Specimen Type : BLOOD SPECIMEN Performed By: #### 4091-5 ## ## [facility] CLIA [id number] [address] [place] [address] Urea nitrogen [Mass/Vol] 8 mg/dL Normal 7-21 [facility] Comment on above: Order Comment: Specimen Type : BLOOD SPECIMEN Performed By: #### 4091-5 ## ## [facility] CLIA [id number] [address] [place] [address] Gas and Carbon monoxide panel (BldV) on 12-27-2020 BASE DEFICIT, VENOUS -5.6 mmol/L Low -2-0 [facility] Comment on above: Order Comment: Specimen Type : BLOOD SPECIMEN Performed By: #### 4091-5 ## ## [facility] CLIA [id number] [address] [place] [address] Body temperature 99.14 [degF] Normal [facility] Comment on above: Order Comment: Specimen Type : BLOOD SPECIMEN Performed By: #### 4091-5 ## ## [facility] CLIA [id number] [address] [place] [address] CALCIUM IONIZED, PH CORRECTED 1.15 mmol/L Normal 1.08-1.30 [facility] Comment on above: Order Comment: Specimen Type : BLOOD SPECIMEN Performed By: #### 4091-5 ## ## [facility] CLIA [id number] [address] [place] [address] Calcium.ionized (BldV) 1.16 mmol/L Normal 1.08-1.30 [facility] [Mass/Vol] [place] Comment on above: Order Comment: Specimen Type : BLOOD SPECIMEN Performed By: #### 4091-5 ## ## [facility] CLIA [id number] [address] [place] [address] Carboxyhemoglobin (BldV) [Mass 2.0 % Normal 0.0-2.0 [facility]] [place] Comment on above: Order Comment: Specimen Type : BLOOD SPECIMEN Result Comment: Carboxyhemog lobin Reference Range for Smokers: 2.0-8.0% Performed By: #### 4091-5 ## ## [facility] CLIA [id number] [address] [place] [address] CO2 (BldV) [Partial pressure] 31 mm[Hg] Low 42-55 [facility] Comment on above: Order Comment: Specimen Type : BLOOD SPECIMEN Performed By: #### 4091-5 ## ## [facility] CLIA [id number] [address] [place] [address] CO2 [Moles/Vol] 15.5 mmol/L Low 25-29 [facility] Comment on above: Order Comment: Specimen Type : BLOOD SPECIMEN Performed By: #### 4091-5 ## ## [facility] CLIA [id number] [address] [place] [address] CO2 adjusted to patient's actual 31 mmHg Low 42-55 [facility] temperature (BldV) [Partial pressure] Comment on above: Order Comment: Specimen Type : BLOOD SPECIMEN Performed By: #### 4091-5 ## ## [facility] CLIA [id number] [address] [place] [address] Glucose [Mass/Vol] mg/dL High 60-105 [facility] Comment on above: Order Comment: Specimen Type : BLOOD SPECIMEN Result Comment: Result is ab ove the technical range. Suggest that a glucose order be sent to the laboratory for testing. Performed By: #### 4091-5 ## ## [facility] CLIA [id number] [address] [place] [address] HCO3 (Bld) [Moles/Vol] 17.8 mmol/L Low 24-28 [facility] Comment on above: Order Comment: Specimen Type : BLOOD SPECIMEN Performed By: #### 4091-5 ## ## [facility] CLIA [id number] [address] [place] [address] Hematocrit (Bld) [Volume fraction] 46.2 % High 36.0-4 6.0 [facility] Comment on above: Order Comment: Specimen Type : BLOOD SPECIMEN Performed By: #### 4091-5 ## ## [facility] CLIA [id number] [address] [place] [address] Hemoglobin (Bld) [Mass/Vol] 15.1 g/dL Normal 11.5-15.5 [facility] Comment on above: Order Comment: Specimen Type : BLOOD SPECIMEN Performed By: #### 4091-5 ## ## [facility] CLIA [id number] [address] [place] [address] Methemoglobin (Bld) [Mass fraction] % Normal 0.0-1 .5 [facility] Comment on above: Order Comment: Specimen Type : BLOOD SPECIMEN Performed By: #### 4091-5 ## ## [facility] CLIA [id number] [address] [place] [address] O2 THERAPY RA=Room Air Normal [facility] Comment on above: Order Comment: Specimen Type : BLOOD SPECIMEN Performed By: #### 4091-5 ## ## [facility] CLIA [id number] [address] [place] [address] Oxygen (BldV) [Partial pressure] 78 mm[Hg] High 35-45 [facility] Comment on above: Order Comment: Specimen Type : BLOOD SPECIMEN Performed By: #### 4091-5 ## ## [facility] CLIA [id number] [address] [place] [address] Oxygen adjusted to patient's actual 79.7 mmHg High 35-45 [facility] temperature (BldV) [Partial pressure] Comment on above: Order Comment: Specimen Type : BLOOD SPECIMEN Performed By: #### 4091-5 ## ## [facility] CLIA [id number] [address] [place] [address] Oxygen saturation in Blood 95.1 % High 60-85 [facility] Comment on above: Order Comment: Specimen Type : BLOOD SPECIMEN Performed By: #### 4091-5 ## ## [facility] CLIA [id number] [address] [place] [address] Oxyhemoglobin (BldV) [Mass fraction] 92 % High 60-[address] [place] [address] Comment on above: Order Comment: Specimen Type : BLOOD SPECIMEN Performed By: #### 4091-5 ## ## [facility] CLIA [id number] [address] [place] [address] pH (BldV) 7.39 [pH] Normal 7.32-7.42 [facility] Comment on above: Order Comment: Specimen Type : BLOOD SPECIMEN Performed By: #### 4091-5 ## ## [facility] CLIA [id number] [address] [place] [address] pH adjusted to patient's actual 7.38 Normal 7.32-7.42 [facility] temperature (BldV) Comment on above: Order Comment: Specimen Type : BLOOD SPECIMEN Performed By: #### 4091-5 ## ## [facility] CLIA [id number] [address] [place] [address] Potassium [Moles/Vol] 3.7 mmol/L Normal 3.5-5.0 [facility] Comment on above: Order Comment: Specimen Type : BLOOD SPECIMEN Performed By: #### 4091-5 ## ## [facility] CLIA [id number] [address] [place] [address] Sodium [Moles/Vol] 137 mmol/L Normal 136-144 [facility] Comment on above: Order Comment: Specimen Type : BLOOD SPECIMEN Performed By: #### 4091-5 ## ## [facility] CLIA [id number] [address] [place] [address] HGB A1C on 1 Average glucose Estimated from 217 mg/dL Normal [facility] glycated hemoglobin (Bld) [Mass/Vol] Comment on above: Order Comment: Specimen Type : BLOOD SPECIMEN Result Comment: eAG: (Estima patrick average glucose) is a calculated value from HgbA1c and is rep resentative of the average blood glucose level in the last 2- 3 month period. Performed By: #### PROCAL ## ## [facility] CLIA [id number] [address] [place] [address] HbA1c (Bld) [Mass fraction] 9.2 % High 4.3-5.6 [facility] Comment on above: Order Comment: Specimen Type : BLOOD SPECIMEN Result Comment: [place] [employer] guidelines indicate that patients with HgbA1c in the range 5.7-6.4% are at increased risk for development of diab etes, and intervention by lifestyle modification may be benefici al. HgbA1c greater or equal to 6.5% is considered diagnostic of fern betes. Performed By: #### PROCAL ## ## [facility] CLIA [id number] [address] [place] [address] HIGH SENSITIVITY TROPONIN T on 12-27-2020 HIGH SENSITIVITY EMERALD 37 ng/L High <12 [facility] Comment on above: Order Comment: Specimen Type : BLOOD SPECIMEN Result Comment: When assessi ng risk for acute coronary syndromes: In patients undergoing blood draw greater than or equal to 2 hours from symptom onset, with his tory of very low to moderate risk and non-ischemic ECG, an initial hs-Troponin T less than 12 ng/L AND a 1 hour delta hs-Troponin T l ess than 3 ng/L should be considered very low risk for 30 day MAC E. Performed By: #### HSTNT ### #[facility] [id number] [place] [address] HISTORY PHYSICAL on 12-27-2020 HISTORY PHYSICAL HNO ID: [id number] Normal [facility] Author: Sidney Linda MD Center Service: General Internal Medicine Author Type: Physician Type: HANDP Filed: 12/27/2020 1:16 AM Note Text: DEPARTMENT OF HOSPITAL MEDICINE HISTORY AND PHYSICAL EXAM SERVICE DATE: 12/26/2020 SERVICE TIME: 10:50 PM Primary Care Physician: You Parks MD NIGHT AND WEEKEND COVERAGE: From 7am - 7pm, please call Sound After 7pm, please call cross cover pager #[phone] Subjective CHIEF COMPLAINT: Confusion, seizures HPI: This is a 65 year old female transferred from [facility] with a hx of CHF, PAF, RA, seizure disorder, Takotsubo cardiomyopat hy, CAD s/p STEMI, pressure ulcers on feet, QIAN, HL, hypothyroidism, dive rticulitis, firbomyalgia, hx of CVA, morbid obesity and HTN, who w as brought to [facility]'s ER 12/22 after family found her at he r home confused, pacing, and agitated. They noted that she was covered in feces. She was last seen normal a day or two before this. She has no history of alcohol or illicit drug use. She was initially afebrile in the ER then became febri l 12/23. She was hypertensive. 95-97% on RA. Her temp is 99.7, and is HD stable, 96% on RA. Admissi on labs pending. She was noted to be alert but not responding to questi on, rather just murmuring repetitive statements. She was able to foll ow commands. She was moving all 4 extremities and had no focal deficits . She appeared mildly agitated. WBC 24.7, hgb 15.7, Na 132, K 3.6, cr eatinine 1.33, glucose 479, t con 2.00, trop 0.018, BNP 160, alcohol 5, UA neg for UTI. Tox screen positive for opiates. CXR showed mild inter stitial prominence. CT brain was limited by artifact but no hemorrhage or infarct noted. EKG sinus rhythm with no acute ischemic changes noted. Cov id neg. Lactate was 2.7. She had mild DKA on admission and this resolv ed. She was admitted to the ICU and was started on IV Vancomycin, Cefepime, Flagyl. C diff pending, stool studies pending. IVF for dehydrati on. Diagnosis of acute infectious encephalopathy. Metformin was held. L actate decreased to 1.8. CT AP showed no acute findings, suspicious for e nteritis. She became increasingly agitated in the ICU and was gi crystal Ativan and Haldol IV. She was noted to have intermittent periods of lucidity then again become non-communicative, muttering. LP was done . Unable to locate full results but glucose 69. IT was noted EEG was done but I am unable to locate the results. PAST MEDICAL HISTORY Diagnosis Date - Congestive heart failure (HCC) - Coronary artery disease - Diarrhea - Diarrhea - Hypothyroidism - PMH - PAST MEDICAL HISTORY OF high cholestrol - PMH - PAST MEDICAL HISTORY OF neck injury - Type II or unspecified type diabetes mellitus withou t mention of complication, not stated as uncontrolled - Unspecified essential hypertension PAST SURGICAL HISTORY Procedure Laterality Date - APPENDECTOMY 1973 - COLONOSCOP W/ OR W/O BRSH SPEC 06/19/2013 Colonoscopy - COLONOSCOPY W/BX 05/27/07 - EGD W/O OR W/BRUSH/WASH 06/19/2013 EGD - EGD W/O OR W/BRUSH/WASH 02/17/15 EGD - REMOVAL GALLBLADDER Cholecystectomy FAMILY HISTORY Problem Relation Age of Onset - Diabetes Mother - other (Crohn's disease) Mother - other (Crohn's disease) Son - other (Bone cancer) Father - Diabetes Maternal Grandmother Social History Tobacco Use - Smoking status: Never Smoker - Smokeless tobacco: Never Used Substance Use Topics - Alcohol use: No - Drug use: No HOME MEDICATIONS: Prior to Admission Medications Prescriptions Last Dose Informant Patient Reported? Ta filippo? HYDROCODONE BIT/ACETAMINOPHEN (VICODIN ORAL) Yes No Sig: Take by mouth. INSULIN DEGLUDEC (TRESIBA FLEXTOUCH U-100 SUBCUTANEOUS ) Yes No Sig: Inject 120 mg subcutaneously once daily. Levothyroxine 50 mcg cap Yes No Sig: Take by mouth once daily. Omeprazole 40 mg capsule Yes No Sig: Take 40 mg by mouth once daily. allopurinol (ZYLOPRIM) 100 mg tablet Yes No Sig: Take 100 mg by mouth once daily. aspirin, enteric coated (ASPIRIN, ENTERIC COATED) 81 m g EC tablet Yes No Sig: Take 81 mg by mouth once daily. haloperidol (HALDOL) 0.5 mg tablet Yes No Sig: Take 0.5 mg by mouth twice daily. lamoTRIgine (LAMICTAL) 100 mg tablet Yes No Sig: Take 100 mg by mouth twice daily. methadone (DOLOPHINE) 5 mg tablet Yes No Sig: Take 10 mg by mouth once daily. At bedtime montelukast (SINGULAIR) 10 mg tablet Yes No Sig: Take 10 mg by mouth daily at bedtime. morphine IR 15 mg tablet Yes No Sig: Take 15 mg by mouth every 4 hours as needed. naloxegol (MOVANTIK) 25 mg tablet Yes No Sig: Take 25 mg by mouth once daily. ondansetron orally disintegrating (ZOFRAN ODT) 8 mg di sintegrating tablet No No Sig: Take 1 tablet by mouth every 8 hours as needed. pregabalin (LYRICA) 75 mg capsule Yes No Sig: Take 150 mg by mouth twice daily. promethazine (PHENERGAN) 25 mg tablet Yes No Sig: Take 25 mg by mouth three times daily. promet (more content not included)... KETONES/ACETONE/BHB on 12-27-2020 Beta hydroxybutyrate [Moles/Vol] >2.00 High 0.02-0.2 7 [facility] Comment on above: Order Comment: Specimen Type : BLOOD SPECIMEN Performed By: #### [id number] # ### [facility] CLIA [id number] 1 [place] [address] MRI BRAIN WO IVCON o n 12-27-2020 MRI BRAIN WO IVCON * * *Final Report* * * Normal [facility] DATE OF EXAM: Dec 27 2020 10:22AM [facility] 0294 - MRI BRAIN WO IVCON / PROCEDURE REASON: TIA, initial exam * * * * Physician Interpretation * * * * EXAMINATION: MRI BRAIN WO IVCON CLINICAL HISTORY: Confused, agitated, uncontrollable m ild movement. TECHNIQUE: Routine noncontrast MRI protocol including diffusion images. MQ: [id number] COMPARISON: CT head from outside situation on 12/24/19. RESULT: Examination is motion degraded. Acute Change: There is no evidence of restricted diffu merry to suggest an acute infarct. Hemorrhage: Punctate focus of susceptibility signal wi thin right aspect of the alfredito, most compatible with chronic micro hemorrhage. No evidence of acute lobar hemorrhage. Mass Lesion/ Mass Effect: Abnormal T2/FLAIR signal wit hin bilateral posterior parietal lobes, and bilateral occipital lobe s. This involves cortex, and subcortical white matter. FLAIR signal wit hin adjacent sulci is not completely excluded. Possible trace amount of a bnormal T2/FLAIR signal within the bilateral anterior frontal lobe near the vertex. No evidence of midline shift. Chronic Change: Scattered patchy areas of increased T2 and FLAIR signal are present in the supratentorial white matter which i s a nonspecific finding but likely represents mild chronic microvascul ar ischemia. Parenchyma: There is mild generalized parenchymal volu me loss. Ventricles: Ventriculomegaly corresponds to the degree of parenchymal volume loss. Skull Base: Hypothalamic and pituitary region are lorenzo sly normal. Craniocervical junction is normal. No significant padmini ow replacement process. Vasculature: Major intracranial arterial structures, a nd dural venous sinuses show typical flow void, suggesting patency by spin echo criteria. Other: Nonspecific bilateral mastoid fluid. No signifi cant paranasal sinus disease. The optic globes are symmetric. IMPRESSION: 1. Abnormal T2/FLAIR signal within bilateral posterior parietal lobes, bilateral medial occipital lobes, and to lesser degree bilateral anterior frontal lobes near the vertex. Differential includes b ut not limited to PRES, or encephalitis/meningitis. Clinical correlation and short-term follow-up is recommended. 2. No acute infarct, acute lobar hemorrhage, or signif icant mass effect. 3. Punctate focus of susceptibility signal within the right aspect of the alfredito, most compatible with chronic microhemorrhage. 4. Chronic small vessel ischemic white matter disease and diffuse cerebral volume loss. Poll Watcher: ABRAM Transcribe Date/Time: Dec 27 2020 10:33A Dictated by : RODNEY CHANEY MD This examination was interpreted and the report review ed and electronically signed by: RODNEY CHANEY MD on Dec 27 2020 10:54AM EST [id number] Magnesium SerPl-mCnc on 12-27-2020 Magnesium [Mass/Vol] 1.3 mg/dL Low 1.7-2.3 [facility] Comment on above: Order Comment: Specimen Type : BLOOD SPECIMEN Performed By: #### [id number] ## ## [facility] CLIA [id number] [address] [place] [address] Magnesium [Mass/Vol] 2.7 mg/dL High 1.7-2.3 [facility] Comment on above: Order Comment: Specimen Type : BLOOD SPECIMEN Performed By: #### [id number] ## ## [facility] CLIA [id number] 1 [place] [id number] NUTRITION on 021 NUTRITION HNO ID: [id number] Normal [facility] Author: Dawna Adan RD Ge dulceal Service: Nutrition Therapy João hinojosa Author Type: Registered Dietitian Center Type: Nutrition Filed: 12/28/2020 9:50 AM Note Text: NUTRITION THERAPY INITIAL ASSESSMENT SERVICE DATE: 12/27/2020 SERVICE TIME: 10:00 AM Nutrition Assessment: Recommended Malnutrition Diagnosis: No Malnutrition Id entified Nutrition Diagnosis: Problem: Suboptimal protein/energy intake Related to: Inability to consume sufficient nutrients As evidenced by: Medical condition Estimated kilocalorie needs: 9617-0243 Calorie Calculation Method: 25-30 kcals/kg Estimated protein needs (grams): 71-89 Grams protein determined by: 1.2 - 1.5 g/kg;Bowie body weight Care Plan: Continue current diet (NPO due to altered mental statu s) Refer to: Speech/Language Labs: Potassium;Phosphorus;Magnesium Enteral Nutrition Tube Feeding Formula Type: Isosource 1.5 Goal Rate (mL/hr x hours): 42 mL/hr x 24 hours provide s 1008 mL, 1512 kcals, 69 gm protein, 177 gm CHO, and 770 mL free wate r Water Flush Volume (mL x frequency: 30 mL x 6 times pe r day with IVF's, and if no IVF's flush with 130 mL x 6 times per day Modular: Healthy Shot (1 per day to pfovide 100 kcals and 24 grams protein-flush with 30 mL water before and after) Recommended Enteral Access: Small bowel feeding tube Monitor and Evaluation: Monitor fluid/electrolyte rosalino nce;Meet greater than 75% of estimated needs;Monitor bowel function;Mon itor tolerance to tube feeding;Monitor labs, I/Os, vital signs, weight Discharge Recommendations: Diet Diet: TBD HPI: 65 yo female with history of DM, CAD s/p STEMI, s eizure disorder, Pressure ulcers on feet, QIAN, HL, hypothyroidism, dive rticulitis, fibromyalgia, CVS, CHF, HTN, presented from transfer f [facility] for confusion and seizures. Neurology, ID, and Wound Care all consulted. Noted bedside enteral tube placement with cortrak ordered to day. Intake History: Nutrition Intake Prior to Admission: Unable to determi ne (but suspect adequate with noted increase in weight over almost 2 y ears) Current Intake: NPO Diet Orders (From admission, onward) Start Ordered 12/26/202314 DIET NPO START NOW 12/26/20 2313 Anthropometrics: Height: 167.6 cm (5' 5.98) (per previously height doc umentation per review of EMR) Weight: (!) 142.1 kg (313 lb 4.8 oz) Dosing Weight: 59 kg (130 lb 1.1 oz) Usual Weight: (Patient not answering any qeustions- pe r wt hx appears to be mostly 285 lbs back in 07/2018) Body mass index is 50.59 kg/m?. Morbidly Obese Weight change percentage over time: Wt gain over almos t 2 years per wt hx re Wt Readings: Date: Wt: 12/26/2020 142.1 kg (313 lb 4.8 oz)-bed 05/11/2019 113.4 kg (250 lb)- ED 07/23/2018 129.3 kg (285 lb) 05/23/2018 129.3 kg (285 lb) 12/18/2017 120.8 kg (266 lb 6 oz) 07/31/2017 107 kg (236 lb) 06/28/2017 108.4 kg (239 lb) 08/21/2016 117.8 kg (259 lb 12.8 oz) 05/22/2016 122.5 kg (270 lb) 02/01/2015 130.6 kg (287 lb 14.7 oz) 02/01/2015 130.4 kg (287 lb 6.4 oz) 06/10/2013 140.6 kg (310 lb) 04/01/2007 110.7 kg (244 lb) 03/22/2006 110.2 kg (243 lb) Physical Exam: Potential micronutrient deficiency: Skin (wound on fabien l noted) Edema/Ascites: No edema;No ascites GI Symptoms: Unable to determine at this time Functional Status: Regressed Potential Signs of Inflammation: Chronic condition;Hyperglycemia;Hypoalbuminemia;Leukocytosis MNT Billing Type: Initial Assess/15 min 4 units SIGNATURE: Dawna Adan RD PATIENT NAME: Soni carlos DATE: December 27, 2020 TIME: 10:18 AM PAGER: [phone] PROCALCITONIN (LAB) on 12-27-2020 Procalcitonin [Mass/Vol] 0.33 ng/mL High <0.09 [facility] Comment on above: Order Comment: Specimen Type : BLOOD SPECIMEN Result Comment: For a guided interpretation of test results, please visit the Change in Procalci tonin Calculator, [email or web address] m. Performed By: #### PROCAL ## ##[facility] [id number] [place] [address] Procalcitonin [Mass/Vol] 0.36 ng/mL High <0.09 [facility] Comment on above: Order Comment: Specimen Type : BLOOD SPECIMEN Result Comment: For a guided interpretation of test results, please visit the Change in Procalci tonin Calculator, [email or web address] m. Performed By: #### PROCAL ## ## [facility] CLIA [id number] 1 [place] [address] SEPSIS LACTATE on Lactate [Moles/Vol] 1.2 mmol/L Normal <=2.0 [facility] Comment on above: Order Comment: Specimen Type : BLOOD SPECIMEN Performed By: #### SLACT ### # [facility] CLIA [id number] 1 [place] [address] STAPH AUREUS PCR on 12-27-2020 S. aureus and MRSA panel MARIA G+probe Normal Negati ve [facility] ([place]) Comment on above: Order Comment: Specimen Type : SWAB OF INTERNAL NOSE Result Comment: Negative for Staphylococcus aureus by PCR. Negative for MRSA by PCR Performed By: #### SAPCR ### # [facility] CLIA [id number] [address] [place] [address] UA WITH CULTURE IF INDICATED on 12-27-2020 UA WITH CULTURE IF COLOR: Abnormal [facility] CLARITY: Turbid GLUCOSE, URINE: >=1000 mg/dL BILIRUBIN, URINE: Negative KETONES, URINE: 40 mg/dL SPECIFIC GRAVITY, UR: 1.029 HEMOGLOBIN/BLOOD, UR: Small PH, URINE: 6.0 PROTEIN, URINE: 100 mg/dL UROBILINOGEN: 0.2 EU/dL NITRITES: Negative LEUKEST: Small WBC, URINE: >25 /HPF RBC, URINE: 11-25 /HPF BACTERIA: None Seen SQUAMOUS EPITHELIAL CELLS (AUWI): 14.9 HYALINE CASTS: 4-10 /LPF GRANULAR CAST: 4-10 /LPF BUDDING YEAST (UA): Few CULTURE, URINE: No growth (<1,000 CFU/ml) Comment on above: Order Comment: Specimen Type : BLOOD SPECIMEN Performed By: #### [id number] # ### [facility] CLIA [id number] 1 [place] [address] Vancomycin random [Mass/Vol] on 12-27-2020 Vancomycin [Mass/Vol] 17.9 ug/mL Normal 10.0-20.0 [facility] Comment on above: Order Comment: Specimen Type : BLOOD SPECIMEN Result Comment: Reference ra nges and high/low indicator flags are provided as general guidelin es only. The treating physician must determine appropriate target levels/dosing based on the specific clinical situation. Performed By: #### [id number] ## ## [facility] CLIA [id number] 1 [place] [address] XR ABDOMEN 1V SUPINE on 12-27-2020 XR ABDOMEN 1V SUPINE * * *Final Report* * * Normal [facility] DATE OF EXAM: Dec 27 2020 7:00PM [facility] 5289 - XR ABDOMEN 1V SUPINE / 3 PROCEDURE REASON: Evaluate tube, line or lead position * * * * Physician Interpretation * * * * ABDOMEN: CLINICAL INDICATION Evaluate tube, line or lead positi on. COMPARISON: Abdomen radiograph 04/24/2015, outside CT ab domen and pelvis 12/23/2020 and chest radiographs 12/27/2020. The radiograph is compromised by body habitus. The rad iograph includes the left upper and mid abdomen. The right abdomen is i ncompletely visualized with nonvisualized pelvis. There is a feeding tube extending below the diaphragm. The feeding tube terminates over the left upper abdomen. Underpenetrati on limits evaluation for bowel dilatation. There is a left upper extremity approach catheter term inating at the cavoatrial junction. Monitoring wires overlie the ches t and upper abdomen. Radiopaque tubing overlies the right upper ch est. IMPRESSION: Limited single view abdomen secondary to body habitus. Feeding tube terminating over the left upper abdomen. Poll Watcher: ABRAM Transcribe Date/Time: Dec 28 2020 11:27A Dictated by : JOSETTE SHARPE MD This examination was interpreted and the report review ed and electronically signed by: JOSETTE SHARPE MD on Dec 28 2020 11:32AM EST [id number] XR CHEST 1V FRONTAL on 12-27-2020 XR CHEST 1V FRONTAL * * *Final Report* * * Normal [facility] DATE OF EXAM: Dec 27 2020 1:06AM [facility] 5290 - XR CHEST 1V FRONTAL / PROCEDURE REASON: Tachycardia * * * * Physician Interpretation * * * * EXAMINATION: CHEST RADIOGRAPH (SINGLE VIEW AP OR PA) CLINICAL HISTORY: Tachycardia MQ: XC1_5 Comparison: None RESULT: Lines, tubes, and devices: Left PICC terminates over t he cavoatrial junction. Lungs and pleura: No pneumothorax, pleural effusion or consolidative airspace disease. Cardiomediastinal silhouette: Normal heart size and me diastinal contours. Other: Normal bones. IMPRESSION: No acute cardiopulmonary findings. Poll Watcher: [employer] Transcribe Date/Time: Dec 27 2020 2:20A Dictated by : KAREEN HELLER MD This examination was interpreted and the report review ed and electronically signed by: KAREEN HELLER MD on Dec 27 2020 2:21AM EST [id number] XR CHEST 1V FRONTAL * * *Final Report* * * Normal [facility] DATE OF EXAM: Dec 27 2020 12:58PM [facility] AKX 5290 - XR CHEST 1V FRONTAL / PROCEDURE REASON: Fever of unknown origin * * * * Physician Interpretation * * * * EXAMINATION: CHEST RADIOGRAPH (SINGLE VIEW AP OR PA) CLINICAL HISTORY: Fever of unknown origin MQ: XC1_5 Comparison: Study performed earlier today RESULT: Lines, tubes, and devices: Left PICC line remains in u naltered position. Lungs and pleura: There may be minimal atelectasis at the left lung base. No airspace consolidation, pleural effusion or p neumothorax. Cardiomediastinal silhouette: Normal cardiomediastinal silhouette. Other: None IMPRESSION: No acute radiographic abnormality. Poll [facility]: [facility] Transcribe Date/Time: Dec 27 2020 2:22P Dictated by : EITAN PATTEN MD This examination was interpreted and the report review ed and electronically signed by: EITAN PATTEN MD on Dec 27 2020 2:23PM EST [id number] CT-Abdomen/Pelvis W IV Cont ONLY IMPORT on 12-23-2020 CT-Abdomen/Pelvis W IV Cont Images were obtained outsi de of [facility] ONLY IMPORT [id number] [place] CT-Brain/Head without Contrast IMPORT on 12-23-2020 CT-Brain/Head without Images were obtained outside of [facility] Contrast IMPORT [id number] Cl suhail No Panel Information [facility] (Portable) IMPORT on 12-23-2020 OT-Chest 1 View Images were obtained outside of [facility] (Portable) IMPORT [id number] [place] CR-Femur Min 2 Views IMPORT on 12-20-2020 CR-Femur Min 2 Views Images were obtained outside of [facility] IMPORT [id number] [place] No Panel Information on 12-20-2020 [facility] .GFR on 11-18-2020 GFR 56 ml/min/1.73sqm Normal [facility] ([place]) Comment on above: Result Comment: GFR Population mean for Afri can Tunisian, Non- Americans Ages 20-29 = 116 mL/min/1.73 [...] meters Performed By: #### BMP, GFR #### [address] [address] GFR Non- 46 ml/min/1.73sqm Normal [facility] ([place]) Comment on above: Result Comment: GFR Population mean for Afri can Tunisian, Non- Americans Ages 20-29 = 116 mL/min/1.73 [...] meters Performed By: #### BMP, GFR #### [address] [address] BMP on 11-18-2020 BUN/Creatinine Ratio 16 ratio Normal 7-27 [facility] ([place]) Comment on above: Performed By: #### BMP, GFR #### [address] [address] Calcium [Mass/Vol] 9.8 mg/dL Normal 8.4-10.2 [facility] ([place]) Comment on above: Performed By: #### BMP, GFR #### [address] [address] Chloride [Moles/Vol] 103 mmol/L Normal 98-107 [facility] ([place]) Comment on above: Performed By: #### BMP, GFR #### [address] [address] CO2 [Moles/Vol] 33 mmol/L High 23-31 [facility] ([place]) Comment on above: Performed By: #### BMP, GFR #### [address] [address] Creatinine [Mass/Vol] 1.17 mg/dL High 0.55-1.02 [facility] ([place]) Comment on above: Performed By: #### BMP, GFR #### [address] [address] Electrolyte Balance 6.0 mEq/L Normal [facility] ([place]) Comment on above: Performed By: #### BMP, GFR #### [address] [address] Glucose [Mass/Vol] 228 mg/dL High 80-115 [facility] ([place]) Comment on above: Performed By: #### BMP, GFR #### [address] [address] Potassium [Moles/Vol] 5.3 mmol/L High 3.5-5.1 [facility] ([place]) Comment on above: Performed By: #### BMP, GFR #### [address] [address] Sodium [Moles/Vol] 142 mmol/L Normal 136-145 [facility] ([place]) Comment on above: Performed By: #### BMP, GFR #### [address] [address] Urea nitrogen [Mass/Vol] 19 mg/dL High 7-18 [facility] ([place]) Comment on above: Performed By: #### BMP, GFR #### [address] [address] CPEP on 11-18-2020 C-Peptide 1.24 ng/mL Normal 0.81-3.85 [facility] ([place]) Comment on above: Performed By: #### BMP, GFR #### [address] [address] .GFR on 11-03-2020 GFR 54 ml/min/1.73sqm Normal [facility] ([place]) Comment on above: Result Comment: GFR Population mean for Afri can Tunisian, Non- Americans Ages 20-29 = 116 mL/min/1.73 sq.m. Ages 30-39 = 107 mL/min/1.73 sq.m. Ages 40-49 = 99 mL/min/1.73 sq.m. Ages 50-59 = 93 mL/min/1.73 sq.m. Ages 60-69 = 85 mL/min/1.73 sq.m. Ages 70+ = 75 mL/min/1.73 sq .m. Chronic Kidney Disease: Less than 60 mL/min/1.73 square meters End Stage Renal Disease: Les s than 15 mL/min/1.73 square meters Performed By: #### CBC, CMP, PHV, LIP, ADIFF, ANEU, GFR, MARLI #### [address] [address] GFR Non- 45 ml/min/1.73sqm Normal [facility] ([place]) Comment on above: Result Comment: GFR Population mean for Afri can Tunisian, Non- Americans Ages 20-29 = 116 mL/min/1.73 sq.m. Ages 30-39 = 107 mL/min/1.73 sq.m. Ages 40-49 = 99 mL/min/1.73 sq.m. Ages 50-59 = 93 mL/min/1.73 sq.m. Ages 60-69 = 85 mL/min/1.73 sq.m. Ages 70+ = 75 mL/min/1.73 sq .m. Chronic Kidney Disease: Less than 60 mL/min/1.73 square meters End Stage Renal Disease: Les s than 15 mL/min/1.73 square meters Performed By: #### CBC, CMP, PHV, LIP, ADIFF, ANEU, GFR, MARLI #### [address] [address] BMP on 11-03-2020 BUN/Creatinine Ratio 18 ratio Normal 7-27 [facility] ([place]) Comment on above: Performed By: #### CBC, CMP, PHV, LIP, ADIFF, ANEU, GFR, MARLI #### [address] [address] Calcium [Mass/Vol] 9.4 mg/dL Normal 8.4-10.2 [facility] ([place]) Comment on above: Performed By: #### CBC, CMP, PHV, LIP, ADIFF, ANEU, GFR, MARLI #### [address] [address] Chloride [Moles/Vol] 103 mmol/L Normal 98-107 [facility] ([place]) Comment on above: Performed By: #### CBC, CMP, PHV, LIP, ADIFF, ANEU, GFR, MARLI #### [address] [address] CO2 [Moles/Vol] 35 mmol/L High 23-31 [facility] ([place]) Comment on above: Performed By: #### CBC, CMP, PHV, LIP, ADIFF, ANEU, GFR, MARLI #### [address] [address] Creatinine [Mass/Vol] 1.21 mg/dL High 0.55-1.02 [facility] ([place]) Comment on above: Performed By: #### CBC, CMP, PHV, LIP, ADIFF, ANEU, GFR, MARLI #### [address] [address] Electrolyte Balance 6.0 mEq/L Normal [facility] ([place]) Comment on above: Performed By: #### CBC, CMP, PHV, LIP, ADIFF, ANEU, GFR, MARLI #### [address] [address] Glucose [Mass/Vol] 289 mg/dL High 80-115 [facility] ([place]) Comment on above: Performed By: #### CBC, CMP, PHV, LIP, ADIFF, ANEU, GFR, MARLI #### [address] [address] Potassium [Moles/Vol] 4.8 mmol/L Normal 3.5-5.1 [facility] ([place]) Comment on above: Performed By: #### CBC, CMP, PHV, LIP, ADIFF, ANEU, GFR, MARLI #### [address] [address] Sodium [Moles/Vol] 144 mmol/L Normal 136-145 [facility] ([place]) Comment on above: Performed By: #### CBC, CMP, PHV, LIP, ADIFF, ANEU, GFR, MARLI #### [address] [address] Urea nitrogen [Mass/Vol] 22 mg/dL High 7-18 [facility] ([place]) Comment on above: Performed By: #### CBC, CMP, PHV, LIP, ADIFF, ANEU, GFR, MARLI #### [address] [address] .GFR on 11-01-2020 GFR 55 ml/min/1.73sqm Normal [facility] ([place]) Comment on above: Result Comment: GFR Population mean for Afri can Tunisian, Non- Americans Ages 20-29 = 116 mL/min/1.73 [...] meters Performed By: #### BMP, GFR #### [address] [address] GFR Non- 45 ml/min/1.73sqm Normal [facility] ([place]) Comment on above: Result Comment: GFR Population mean for Afri can Tunisian, Non- Americans Ages 20-29 = 116 mL/min/1.73 [...] meters Performed By: #### BMP, GFR #### [address] [address] A1C on 11-01-2020 HbA1c (Bld) [Mass fraction] 6.9 % High 4.3-6.4 [facility] ([place] Comment on above: Performed By: #### CBC, CMP, PHV, LIP, ADIFF, ANEU, GFR, MARLI #### [address] [address] CMP on 11-01-2020 Albumin Level 3.6 G/dL Normal 3.4-4.8 [facility] ([place]) Comment on above: Performed By: #### BMP, GFR #### [address] [address] Albumin/Globulin [Mass ratio] 0.9 {ratio} Low 1.1-2.5 [facility] ([place]) Comment on above: Performed By: #### BMP, GFR #### [address] [address] ALP [Catalytic activity/Vol] 142 U/L High 40-135 [facility] ([place]) Comment on above: Performed By: #### BMP, GFR #### [address] [address] ALT [Catalytic activity/Vol] 33 U/L Normal 14-59 [facility] ([place]) Comment on above: Performed By: #### BMP, GFR #### [address] [address] AST [Catalytic activity/Vol] 23 U/L Normal 10-40 [facility] ([place] Comment on above: Performed By: #### BMP, GFR #### [address] [address] Bili Total 0.8 mg/dL Normal 0.2-1.0 [facility] ([place]) Comment on above: Result Comment: Use of this assay is not recommended for patients undergoing treatment with eltrombopag d ue to the potential for falsely elevated results. Performed By: #### BMP, GFR #### [address] [address] BUN/Creatinine Ratio 13 ratio Normal 7-27 [facility] ([place]) Comment on above: Performed By: #### BMP, GFR #### [address] [address] Calcium [Mass/Vol] 9.9 mg/dL Normal 8.4-10.2 [facility] ([place]) Comment on above: Performed By: #### BMP, GFR #### [address] [address] Chloride [Moles/Vol] 104 mmol/L Normal 98-107 [facility] ([place] Comment on above: Performed By: #### BMP, GFR #### [address] [address] CO2 [Moles/Vol] 34 mmol/L High 23-31 [facility] ([place]) Comment on above: Performed By: #### BMP, GFR #### [address] [address] Creatinine [Mass/Vol] 1.19 mg/dL High 0.55-1.02 [facility] ([place]) Comment on above: Performed By: #### BMP, GFR #### [address] [address] Electrolyte Balance 7.0 mEq/L Normal [facility] ([place] Comment on above: Performed By: #### BMP, GFR #### [address] [address] Globulin 3.9 G/dL Normal [facility] ([place]) Comment on above: Performed By: #### BMP, GFR #### [address] [address] Glucose [Mass/Vol] 165 mg/dL High 80-115 [facility] ([place]) Comment on above: Performed By: #### BMP, GFR #### [address] [address] Potassium [Moles/Vol] 5.2 mmol/L High 3.5-5.1 [facility] ([place]) Comment on above: Performed By: #### BMP, GFR #### [address] [address] Sodium [Moles/Vol] 145 mmol/L Normal 136-145 [facility] ([place]) Comment on above: Performed By: #### BMP, GFR #### [address] [address] Total Protein 7.5 G/dL Normal 6.4-8.2 [facility] ([place] Comment on above: Performed By: #### BMP, GFR #### [address] [address] Urea nitrogen [Mass/Vol] 15 mg/dL Normal 7-18 [facility] ([place]) Comment on above: Performed By: #### BMP, GFR #### [address] [address] FT4 on 11-01-2020 Free T4 [Mass/Vol] 1.37 ng/dL Normal 0.76-1.46 [facility] ([place]) Comment on above: Performed By: #### BMP, GFR #### [address] [address] LIPID on 11-01-2020 Cholesterol [Mass/Vol] 136 mg/dL Normal 0-200 [facility] ([place]) Comment on above: Result Comment: Cholesterol Reference Interval: Less than 200 Desirable 200-239 Borderline high risk 240 and above High risk Performed By: #### BMP, GFR #### [address] [address] Cholesterol in HDL [Mass/Vol] 79 mg/dL High 40-60 [facility] ([place] Comment on above: Performed By: #### BMP, GFR #### [address] [address] Cholesterol in LDL [Mass/Vol] 44 mg/dL Normal 0-130 [facility] ([place]) Comment on above: Performed By: #### BMP, GFR #### [address] [address] Triglyceride [Mass/Vol] 66 mg/dL Normal 0-150 [facility] ([place]) Comment on above: Result Comment: Triglyceride Reference Interval: Less than 150 Normal 150-199 Borderline high risk 200-499 High risk 500 or higher Very high risk Performed By: #### BMP, GFR #### [address] [address] TSH on 11-01-2020 TSH Qn 0.52 m[IU]/L Normal 0.36-3.74 [facility] ([place]) Comment on above: Performed By: #### BMP, GFR #### [address] [address] VIDH on 11-01-2020 Vit. D 25-Hydroxy 29.9 ng/mL Normal [facility] ([place]) Comment on above: Result Comment: Interpretive Values Based on Total 25(OH)D: Severe Deficiency <20 ng/mL Mild to Moderate Deficiency 20-30 ng/mL Optimum Levels 30-100 ng/mL Toxicity Possible >100 ng/mL Performed By: #### BMP, GFR #### [address] [address] .Auto Diff on 2020 Basophil, Absolute 0.10 10 3/mcL Normal 0.00-0.19 [facility] ([place]) Comment on above: Performed By: #### CBC, CMP, PHV, LIP, ADIFF, ANEU, GFR, MARLI #### [address] [address] Basophils/100 WBC (Bld) 0.5 % Normal 0.0-2.5 [facility] ([place]) Comment on above: Performed By: #### CBC, CMP, PHV, LIP, ADIFF, ANEU, GFR, MARLI #### [address] [address] Eosinophil, Absolute 0.20 10 3/mcL Normal 0.00-0.40 [facility] ([place]) Comment on above: Performed By: #### CBC, CMP, PHV, LIP, ADIFF, ANEU, GFR, MARLI #### [address] [address] Eosinophils/100 WBC (Bld) 0.9 % Normal 0.0-7.0 [facility] ([place]) Comment on above: Performed By: #### CBC, CMP, PHV, LIP, ADIFF, ANEU, GFR, MARLI #### [address] [address] Lymphocyte, Absolute 1.90 10 3/mcL Normal 0.77-3.85 [facility] ([place]) Comment on above: Performed By: #### CBC, CMP, PHV, LIP, ADIFF, ANEU, GFR, MARLI #### [address] [address] Lymphocytes/100 WBC (Bld) 8.8 % Low 10.0-50.0 [facility] ([place]) Comment on above: Performed By: #### CBC, CMP, PHV, LIP, ADIFF, ANEU, GFR, MARLI #### [address] [address] Monocyte, Absolute 1.20 10 3/mcL High 0.15-1.00 [facility] ([place]) Comment on above: Performed By: #### CBC, CMP, PHV, LIP, ADIFF, ANEU, GFR, MARLI #### [address] [address] Monocytes/100 WBC (Bld) 5.7 % Normal 1.7-13.0 [facility] ([place]) Comment on above: Performed By: #### CBC, CMP, PHV, LIP, ADIFF, ANEU, GFR, MARLI #### [address] [address] Neutrophils/100 WBC (Bld) 84.1 % High 37.0-80.0 [facility] ([place]) Comment on above: Performed By: #### CBC, CMP, PHV, LIP, ADIFF, ANEU, GFR, MARLI #### [address] [address] .Morph on 10-27-2020 Platelet Estimate Normal Normal [facility] ([place]) Comment on above: Performed By: #### CBC, CMP, PHV, LIP, ADIFF, ANEU, GFR, MARLI #### [place] [address] .NEUABS on 1 Neutrophil, Absolute 17.70 10 3/mcL High 2.85-6.16 [facility] ([place]) Comment on above: Performed By: #### CBC, CMP, PHV, LIP, ADIFF, ANEU, GFR, MARLI #### [place] [address] .Urinalysis Microscopic (AO) on 10-27-2020 UA Bacteria 4+ /hpf Abnormal [facility] ([place] Comment on above: Performed By: #### CBC, CMP, PHV, LIP, ADIFF, ANEU, GFR, MARLI #### [place] [address] UA RBC 0-5 Abnormal None Seen [facility] ([place] Comment on above: Performed By: #### CBC, CMP, PHV, LIP, ADIFF, ANEU, GFR, MARLI #### [place] [address] UA Squam Epithelial 5-10 Abnormal None Seen [facility] ([place] Comment on above: Performed By: #### CBC, CMP, PHV, LIP, ADIFF, ANEU, GFR, MARLI #### [place] [address] UA WBC LOADED Abnormal None Seen [facility] ([place] Comment on above: Performed By: #### CBC, CMP, PHV, LIP, ADIFF, ANEU, GFR, MARLI #### [place] [address] CBC on 10-27-2020 Erythrocyte distribution width 15.3 % High 11.5-14.5 [facility]) (RBC) [Ratio] Comment on above: Performed By: #### CBC, CMP, PHV, LIP, ADIFF, ANEU, GFR, MARLI #### [place] [address] Hematocrit (Bld) [Volume 40.3 % Normal 37.0-47.0 [facility] ([place]) fraction] Comment on above: Performed By: #### CBC, CMP, PHV, LIP, ADIFF, ANEU, GFR, MARLI #### [address] [address] Hgb 13.1 G/dL Normal 12.0-16.0 [facility] ([place] Comment on above: Performed By: #### CBC, CMP, PHV, LIP, ADIFF, ANEU, GFR, MARLI #### [address] [address] MCH (RBC) [Entitic mass] 28.0 pg Normal 27.0-31.2 [facility] ([place]) Comment on above: Performed By: #### CBC, CMP, PHV, LIP, ADIFF, ANEU, GFR, MARLI #### [address] [address] MCHC 32.6 G/dL Low 33.0-37.0 [facility] ([place] Comment on above: Performed By: #### CBC, CMP, PHV, LIP, ADIFF, ANEU, GFR, MARLI #### [address] [address] MCV (RBC) [Entitic vol] 85.7 fL Normal 80.0-94.0 [facility] ([place]) Comment on above: Performed By: #### CBC, CMP, PHV, LIP, ADIFF, ANEU, GFR, MARLI #### [address] [address] Platelet 230 10 3/mcL Normal 130-400 [facility] ([place] Comment on above: Performed By: #### CBC, CMP, PHV, LIP, ADIFF, ANEU, GFR, MARLI #### [address] [address] Platelet mean volume (Bld) 8.0 fL Normal 7.4-10.4 [facility] [place]) [Entitic vol] Comment on above: Performed By: #### CBC, CMP, PHV, LIP, ADIFF, ANEU, GFR, MARLI #### [address] [address] RBC 4.70 10 6/mcL Normal 4.20-5.40 [facility] ([place] Comment on above: Performed By: #### CBC, CMP, PHV, LIP, ADIFF, ANEU, GFR, MARLI #### [address] [address] WBC 21.10 10 3/mcL Critically abnormal 4.60-10.80 [facility] ([place]) Comment on above: Performed By: #### CBC, CMP, PHV, LIP, ADIFF, ANEU, GFR, MARLI #### [address] [address] UA on 10-27-2020 Color (U) Yellow Normal [facility] ([place] Comment on above: Performed By: #### CBC, CMP, PHV, LIP, ADIFF, ANEU, GFR, MARLI #### [address] [address] Glucose (U) [Mass/Vol] Negative Normal Negative [facility] ([place]) Comment on above: Performed By: #### CBC, CMP, PHV, LIP, ADIFF, ANEU, GFR, MARLI #### [address] [address] Ketones Ql (U) Negative Normal Negative [facility] ([place] Comment on above: Performed By: #### CBC, CMP, PHV, LIP, ADIFF, ANEU, GFR, MARLI #### [address] [address] UA Appear Slightly Cloudy Abnormal Clear [facility] ([place] Comment on above: Performed By: #### CBC, CMP, PHV, LIP, ADIFF, ANEU, GFR, MARLI #### [address] [address] UA Blood Negative Normal Negative [facility] ([place] Comment on above: Performed By: #### CBC, CMP, PHV, LIP, ADIFF, ANEU, GFR, MARLI #### [address] [address] UA Leuk Est Trace Abnormal Negative [facility] ([place] Comment on above: Performed By: #### CBC, CMP, PHV, LIP, ADIFF, ANEU, GFR, MARLI #### [address] [address] UA Nitrite Positive Abnormal Negative [facility] ([place] Comment on above: Performed By: #### CBC, CMP, PHV, LIP, ADIFF, ANEU, GFR, MARLI #### [address] [address] UA pH 5.5 Normal 5.0 - 8.0 [facility] ([place] Comment on above: Performed By: #### CBC, CMP, PHV, LIP, ADIFF, ANEU, GFR, MARLI #### [place] [address] UA Protein 30 mg/dL Normal Negative [facility] ([place] Comment on above: Performed By: #### CBC, CMP, PHV, LIP, ADIFF, ANEU, GFR, MARLI #### [address] [address] UA Spec Grav >=1.030 Abnormal 1.015-1.025 [facility] ([place] Comment on above: Performed By: #### CBC, CMP, PHV, LIP, ADIFF, ANEU, GFR, MARLI #### [address] [address] UA Specimen Type Clean Catch Normal [facility] ([place]) Comment on above: Performed By: #### CBC, CMP, PHV, LIP, ADIFF, ANEU, GFR, MARLI #### [address] [address] UA Urobilinogen 0.2 E.U./dL Normal 0.2-1.0 [facility] ([place] Comment on above: Performed By: #### CBC, CMP, PHV, LIP, ADIFF, ANEU, GFR, MARLI #### [address] [address] Urobilinogen (U) [Mass/Vol] Negative Normal Negative [facility] ([place] Comment on above: Performed By: #### CBC, CMP, PHV, LIP, ADIFF, ANEU, GFR, MARLI #### [place] [address] [address] .GFR on 10-26-2020 GFR 52 ml/min/1.73sqm Normal [facility] ([place]) Comment on above: Result Comment: GFR Population mean for Afri can Tunisian, Non- Americans Ages 20-29 = 116 mL/min/1.73 [...] meters Performed By: #### BMP, GFR #### [address] [address] GFR Non- 43 ml/min/1.73sqm Normal [facility] ([place]) Comment on above: Result Comment: GFR Population mean for Afri can [place]ian, Non- Americans Ages 20-29 = 116 mL/min/1.73 [...] meters Performed By: #### BMP, GFR #### [address] [address] BMP on 10-26-2020 BUN/Creatinine Ratio 20 ratio Normal 7-27 [facility] ([place] Comment on above: Performed By: #### BMP, GFR #### [address] [address] Calcium [Mass/Vol] 9.0 mg/dL Normal 8.4-10.2 [facility] ([place]) Comment on above: Performed By: #### BMP, GFR #### [address] [address] Chloride [Moles/Vol] 108 mmol/L High 98-107 [facility] ([place] Comment on above: Performed By: #### BMP, GFR #### [address] [address] CO2 [Moles/Vol] 32 mmol/L High 23-31 [facility] ([place]) Comment on above: Performed By: #### BMP, GFR #### [address] [address] Creatinine [Mass/Vol] 1.24 mg/dL High 0.55-1.02 [facility] ([place]) Comment on above: Performed By: #### BMP, GFR #### [address] [address] Electrolyte Balance 5.0 mEq/L Normal [facility] ([place] Comment on above: Performed By: #### BMP, GFR #### [address] [address] Glucose [Mass/Vol] 108 mg/dL Normal 80-115 [facility] ([place]) Comment on above: Performed By: #### BMP, GFR #### [address] [address] Potassium [Moles/Vol] 3.8 mmol/L Normal 3.5-5.1 [facility] ([place]) Comment on above: Performed By: #### BMP, GFR #### [address] [address] Sodium [Moles/Vol] 145 mmol/L Normal 136-145 [facility] ([place]) Comment on above: Performed By: #### BMP, GFR #### [address] [address] Urea nitrogen [Mass/Vol] 25 mg/dL High 7-18 [facility] ([place]) Comment on above: Performed By: #### BMP, GFR #### [address] [address] AMBER on 09-07-2020 Nuclear Ab IF (S) [Titer] 40 {titer} Normal Neg 40 [facility] ([place]) Comment on above: Result Comment: AMBER Screen a nd Titer methodology is an immunofluorescent technique utilizing Hep2 Substrate. Performed By: #### GFR, CMP #### [address] [address] #### A1C #### [place] [address] CCP on 09-07-2020 Cyclic Citrullinated Peptide <20.0 Normal <=20.0 [facility] ([place]) Comment on above: Result Comment: Cyclic Citru llinated IgG Interpretation: Result Units Negative <20 Weak Positive 20-39 Moderate Positive 40-59 Strong Positive >=60 A positive result indicates the presence of IgG anti-CCP3 antibodies and suggests the possibility of RA. A negative result indicates no CCP3 antibody or levels below the negative cut-off of the assay. Results of this assay should be used in conjunction with clinical findings and other serological tests. These test results were obta ined with the [employer] Quanta Lite CCP3 IgG DAVID. Anti-CCP values obtained with different manufacturers' assay methods may not be used interchangeably. Performed By: #### GFR, CMP #### [address] [address] #### A1C #### [address] [address] RF on 09-07-2020 Rheumatoid Factor <6.0 Normal <=6.0 [facility] ([place]) Comment on above: Result Comment: RF IgM Antib bessy by Enzyme Immunoassay: Negative < or = 6 Positive > 6 A positive result indicates the presence of RF antibodies and suggests the possibility of rheumatoid arthritis. A negative result indicates no RF IgM antibody or levels below the negative cut-off o f the assay. Results of this assay should be used in conjunction with clinical findings and other serological tests. These results were obtained with the [employer] QUANTA Lite RF IgM DAVID. RF IgM values obtained with different manufacturers' assay methods may not be used interchangeably. The magnitude of the reporte d IgM levels cannot be correlated to an endpoint ti ter. Performed By: #### GFR, CMP #### [place] [address] #### A1C #### [address] [address] .Auto Diff on 2020 Basophil, Absolute 0.10 10 3/mcL Normal 0.00-0.19 [facility] ([place]) Comment on above: Performed By: #### GFR, CMP #### [place] [address] #### A1C #### [address] [address] Basophils/100 WBC (Bld) 1.1 % Normal 0.0-2.5 [facility] ([place]) Comment on above: Performed By: #### GFR, CMP #### [place] [address] #### A1C #### [address] [address] Eosinophil, Absolute 0.50 10 3/mcL High 0.00-0.40 [facility] ([place]) Comment on above: Performed By: #### GFR, CMP #### [place] [address] #### A1C #### [address] [address] Eosinophils/100 WBC (Bld) 4.7 % Normal 0.0-7.0 [facility] ([place]) Comment on above: Performed By: #### GFR, CMP #### [place] [address] #### A1C #### [address] [address] Lymphocyte, Absolute 2.40 10 3/mcL Normal 0.77-3.85 [facility] ([place]) Comment on above: Performed By: #### GFR, CMP #### [address] [address] #### A1C #### [address] [address] Lymphocytes/100 WBC (Bld) 20.7 % Normal 10.0-50.0 [facility] ([place]) Comment on above: Performed By: #### GFR, CMP #### [place] [address] #### A1C #### [address] [address] Monocyte, Absolute 1.10 10 3/mcL High 0.15-1.00 [facility] ([place]) Comment on above: Performed By: #### GFR, CMP #### [place] [address] #### A1C #### [address] [address] Monocytes/100 WBC (Bld) 9.4 % Normal 1.7-13.0 [facility] ([place]) Comment on above: Performed By: #### GFR, CMP #### [address] [address] #### A1C #### [address] [address] Neutrophils/100 WBC (Bld) 64.1 % Normal 37.0-80.0 [facility] ([place]) Comment on above: Performed By: #### GFR, CMP #### [place] [address] #### A1C #### [address] [address] .GFR on 09-06-2020 GFR 50 ml/min/1.73sqm Normal [facility] ([place]) Comment on above: Result Comment: GFR Population mean for Afri can Tunisian, Non- Americans Ages 20-29 = 116 mL/min/1.73 sq.m. Ages 30-39 = 107 mL/min/1.73 sq.m. Ages 40-49 = 99 mL/min/1.73 sq.m. Ages 50-59 = 93 mL/min/1.73 sq.m. Ages 60-69 = 85 mL/min/1.73 sq.m. Ages 70+ = 75 mL/min/1.73 sq .m. Chronic Kidney Disease: Less than 60 mL/min/1.73 square meters End Stage Renal Disease: Les s than 15 mL/min/1.73 square meters Performed By: #### GFR, CMP #### [address] [address] #### A1C #### [address] [address] GFR Non- 41 ml/min/1.73sqm Normal [facility] ([place]) Comment on above: Result Comment: GFR Population mean for Afri can Tunisian, Non- Americans Ages 20-29 = 116 mL/min/1.73 sq.m. Ages 30-39 = 107 mL/min/1.73 sq.m. Ages 40-49 = 99 mL/min/1.73 sq.m. Ages 50-59 = 93 mL/min/1.73 sq.m. Ages 60-69 = 85 mL/min/1.73 sq.m. Ages 70+ = 75 mL/min/1.73 sq .m. Chronic Kidney Disease: Less than 60 mL/min/1.73 square meters End Stage Renal Disease: Les s than 15 mL/min/1.73 square meters Performed By: #### GFR, CMP #### [address] [address] #### A1C #### [address] [address] .NEUABS on 1 Neutrophil, Absolute 7.40 10 3/mcL High 2.85-6.16 [facility] ([place]) Comment on above: Performed By: #### GFR, CMP #### [address] [address] #### A1C #### [address] [address] ALB on 09-06-2020 Albumin Level 3.3 G/dL Low 3.4-4.8 [facility] ([place]) Comment on above: Performed By: #### GFR, CMP #### [address] [address] #### A1C #### [place] [address] ALT/SGPT on 09-06-19 21 ALT [Catalytic activity/Vol] 21 U/L Normal 14-59 [facility] ([place]) Comment on above: Performed By: #### GFR, CMP #### [address] [address] #### A1C #### [place] [address] AST on 09-06-2020 AST [Catalytic activity/Vol] 16 U/L Normal 10-40 [facility] ([place]) Comment on above: Performed By: #### GFR, CMP #### [address] [address] #### A1C #### [place] [address] BUN on 09-06-2020 Urea nitrogen [Mass/Vol] 17 mg/dL Normal 7-18 [facility] ([place]) Comment on above: Performed By: #### GFR, CMP #### [address] [address] #### A1C #### [address] [address] CBC on 09-06-2020 Erythrocyte distribution width 15.2 % High 11.5-14.5 [facility] ([place]) (RBC) [Ratio] Comment on above: Performed By: #### GFR, CMP #### [address] [address] #### A1C #### [address] [address] Hematocrit (Bld) [Volume 37.6 % Normal 37.0-47.0 [facility] ([place]) fraction] Comment on above: Performed By: #### GFR, CMP #### [place] [id number] #### A1C #### [address] [address] Hgb 12.2 G/dL Normal 12.0-16.0 [facility] ([place] Comment on above: Performed By: #### GFR, CMP #### [place] [address] #### A1C #### [address] [address] MCH (RBC) [Entitic mass] 28.4 pg Normal 27.0-31.2 [facility] ([place]) Comment on above: Performed By: #### GFR, CMP #### [place] [address] #### A1C #### [place] [address] MCHC 32.4 G/dL Low 33.0-37.0 [facility] ([place] Comment on above: Performed By: #### GFR, CMP #### [place] [address] #### A1C #### [place] [address] MCV (RBC) [Entitic vol] 87.6 fL Normal 80.0-94.0 [facility] ([place]) Comment on above: Performed By: #### GFR, CMP #### [place] [id number] #### A1C #### [place] [address] Platelet 259 10 3/mcL Normal 130-400 [facility] ([place]) Comment on above: Performed By: #### GFR, CMP #### [place] [id number] #### A1C #### [place] [address] Platelet mean volume (Bld) 8.8 fL Normal 7.4-10.4 [facility] ([place]) [Entitic vol] Comment on above: Performed By: #### GFR, CMP #### [place] [id number] #### A1C #### [place] [address] RBC 4.30 10 6/mcL Normal 4.20-5.40 [facility] ([place]) Comment on above: Performed By: #### GFR, CMP #### [place] [address] #### A1C #### [place] [address] WBC 11.60 10 3/mcL High 4.60-10.80 [facility] ([place]) Comment on above: Performed By: #### GFR, CMP #### [place] [address] #### A1C #### [place] [address] CRE on 09-06-2020 Creatinine [Mass/Vol] 1.29 mg/dL High 0.55-1.02 [facility] ([place]) Comment on above: Performed By: #### GFR, CMP #### [place] [id number] #### A1C #### [place] [address] CRP on 09-06-2020 C-Reactive Protein 1.9 mg/dL High 0.0-0.9 [facility] ([place]) Comment on above: Performed By: #### GFR, CMP #### [place] [id number] #### A1C #### [place] [address] ESR on 09-06-2020 Erythrocyte Sed Rate 43 mm/hr High 0-30 [facility] ([place]) Comment on above: Performed By: #### GFR, CMP #### [place] [id number] #### A1C #### [facility] [address] [place] [address] URIC on 09-06-2020 Uric Acid Lvl 6.2 mg/dL Normal 2.6-6.2 [facility] ([place]) Comment on above: Performed By: #### GFR, CMP #### [facility] [address] [place], [place] [address] #### A1C #### [facility] [address] [place] [address] XR FOOT TWO VIEWS LEFT on 09-06-2020 XR FOOT TWO VIEWS ORIGINAL Normal [facility] LEFT XR XR FOOT TWO VIEWS LEFT, ( [place]) Clinical Statement: pain , , chronic pain Comparison: None Findings: No acute fracture, dislocati on, lytic process or periosteal reaction is seen in the visualized bones of the LEFT foot. No erosive type of arthritis. No soft tissue calcification. There is marked lateral steven ation at the 1st through 3rd MTP joints with osteoarthritis in the DIP joints of these toes also and at the 1st MTP joint. There is also moderate midfoot osteoarthritis. No calcaneal spurs. IMPRESSION: No acute skeletal abnormalit y in the LEFT foot. Osteoarthritis and lateral deviation deformity in the forefoot. 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 Severe midfoot osteoarthritis. There is valgus angulation at the 1st tarsometatarsal joint with valgus angulation at the MTP joint. Also moderate lateral displacement of the 3rd MTP joint. Osteoarthritis at these joints and in the IP joints of the toes. No calcaneal spurs. IMPRESSION: Degenerative and postoperative changes as described and deformity in the foot. No acute bony abnormality is seen. Interpreted By: Jeff Burns MD Preliminary Report By: Jeff Burns MD Electronically Signed By: Jeff Burns MD Dictated Date: 09/06/2020 11:52:32 AM Prelim Date: 09/06/2020 11:52:32 AM Sign Date: 09/06/2020 11:53:42 AM Ordering Provider:Deuce Fischeridya XR HAND TWO VIEWS LEFT on 09-06-2020 XR HAND TWO VIEWS ORIGINAL Normal [facility] LEFT XR XR HAND TWO VIEWS LEFT, [facility] ([place]) Clinical Statement: pain , , chronic pain Comparison: None Findings: No acute fracture, dislocati on, lytic process or periosteal reaction is seen in the visualized bones of the LEFT hand. No erosive type of arthritis. No soft tissue calcification. There is minimal osteoarthri tis in multiple DIP joints, 1st MCP joint and the trapeziometacarpal joint. IMPRESSION: No acute skeletal abnormality in the LEFT hand. Mild o steoarthritis. Interpreted By: Jeff Burns MD Preliminary Report By: Jeff Burns MD Electronically Signed By: Jeff Burns MD Dictated Date: 09/06/2020 12:05:49 PM Prelim Date: 09/06/2020 12:05:49 PM Sign Date: 09/06/2020 12:06:38 PM Ordering Provider:Deuce Stinson XR HAND TWO VIEWS RIGHT on 09-06-2020 XR HAND TWO VIEWS ORIGINAL Normal [facility] RIGHT XR XR HAND TWO VIEWS RIGHT, [facility] ([place]) Clinical Statement: pain , chronic pain Comparison: None Findings: No acute fracture, dislocati on, lytic process or periosteal reaction is seen in the visualized bones of the RIGHT hand. No erosive type of arthritis. No soft tissue calcification. There is mild osteoarthritis in the hand in multiple DIP and MCP joints and in the triscaphe and trapeziometacarpal joints of the wrist. IMPRESSION: No acute skeletal abnormality in the RIGHT hand. Mild osteoarthritis. Interpreted By: Jeff Burns MD Preliminary Report By: Jeff Burns MD Electronically Signed By: Jeff Burns MD Dictated Date: 09/06/2020 12:06:44 PM Prelim Date: 09/06/2020 12:06:44 PM Sign Date: 09/06/2020 12:07:27 PM Ordering Provider:Deuce Stinson .Auto Diff on 2019 Basophil, Absolute 0.10 10 3/mcL Normal 0.00-0.19 [facility] ([place]) Comment on above: Performed By: #### CBC, CMP, PHV, LIP, ADIFF, ANEU, GFR, MARLI #### [address] [address] Basophils/100 WBC (Bld) 0.6 % Normal 0.0-2.5 [facility] ([place]) Comment on above: Performed By: #### CBC, CMP, PHV, LIP, ADIFF, ANEU, GFR, MARLI #### [address] [address] Eosinophil, Absolute 0.40 10 3/mcL Normal 0.00-0.40 [facility] ([place]) Comment on above: Performed By: #### CBC, CMP, PHV, LIP, ADIFF, ANEU, GFR, MARLI #### [address] [address] Eosinophils/100 WBC (Bld) 3.5 % Normal 0.0-7.0 [facility] ([place]) Comment on above: Performed By: #### CBC, CMP, PHV, LIP, ADIFF, ANEU, GFR, MARLI #### [address] [address] Lymphocyte, Absolute 2.00 10 3/mcL Normal 0.77-3.85 [facility] ([place]) Comment on above: Performed By: #### CBC, CMP, PHV, LIP, ADIFF, ANEU, GFR, MARLI #### [address] [address] Lymphocytes/100 WBC (Bld) 17.1 % Normal 10.0-50.0 [facility] ([place]) Comment on above: Performed By: #### CBC, CMP, PHV, LIP, ADIFF, ANEU, GFR, MARLI #### [address] [address] Monocyte, Absolute 0.70 10 3/mcL Normal 0.15-1.00 [facility] ([place]) Comment on above: Performed By: #### CBC, CMP, PHV, LIP, ADIFF, ANEU, GFR, MARLI #### [address] [address] Monocytes/100 WBC (Bld) 6.0 % Normal 1.7-13.0 [facility] ([place]) Comment on above: Performed By: #### CBC, CMP, PHV, LIP, ADIFF, ANEU, GFR, MARLI #### [address] [address] Neutrophils/100 WBC (Bld) 72.8 % Normal 37.0-80.0 [facility] ([place]) Comment on above: Performed By: #### CBC, CMP, PHV, LIP, ADIFF, ANEU, GFR, MARLI #### [address] [address] .GFR on 07-28-2020 GFR 55 ml/min/1.73sqm Normal [facility] ([place]) Comment on above: Result Comment: GFR Population mean for Afri can Tunisian, Non- Americans Ages 20-29 = 116 mL/min/1.73 sq.m. Ages 30-39 = 107 mL/min/1.73 sq.m. Ages 40-49 = 99 mL/min/1.73 sq.m. Ages 50-59 = 93 mL/min/1.73 sq.m. Ages 60-69 = 85 mL/min/1.73 sq.m. Ages 70+ = 75 mL/min/1.73 sq .m. Chronic Kidney Disease: Less than 60 mL/min/1.73 square meters End Stage Renal Disease: Les s than 15 mL/min/1.73 square meters Performed By: #### CBC, CMP, PHV, LIP, ADIFF, ANEU, GFR, MARLI #### [address] [address] GFR 57 ml/min/1.73sqm Normal [facility] ([place]) Comment on above: Result Comment: GFR Population mean for Afri can Tunisian, Non- Americans Ages 20-29 = 116 mL/min/1.73 [...] meters Performed By: #### BMP, GFR #### [address] [address] GFR Non- 46 ml/min/1.73sqm Normal [facility] ([place]) Comment on above: Result Comment: GFR Population mean for Afri can Tunisian, Non- Americans Ages 20-29 = 116 mL/min/1.73 sq.m. Ages 30-39 = 107 mL/min/1.73 sq.m. Ages 40-49 = 99 mL/min/1.73 sq.m. Ages 50-59 = 93 mL/min/1.73 sq.m. Ages 60-69 = 85 mL/min/1.73 sq.m. Ages 70+ = 75 mL/min/1.73 sq .m. Chronic Kidney Disease: Less than 60 mL/min/1.73 square meters End Stage Renal Disease: Les s than 15 mL/min/1.73 square meters Performed By: #### CBC, CMP, PHV, LIP, ADIFF, ANEU, GFR, MARLI #### [place] [address] [place], [place] [address] GFR Non- 47 ml/min/1.73sqm Normal [facility] ([place]) Comment on above: Result Comment: GFR Population mean for Afri can Tunisian, Non- Americans Ages 20-29 = 116 mL/min/1.73 [...] meters Performed By: #### BMP, GFR #### [address] [address] .NEUABS on 0 Neutrophil, Absolute 8.50 10 3/mcL High 2.85-6.16 [facility] ([place]) Comment on above: Performed By: #### CBC, CMP, PHV, LIP, ADIFF, ANEU, GFR, MARLI #### [address] [address] BMP on 07-28-2020 BUN/Creatinine Ratio 11 ratio Normal 7-27 [facility] ([place]) Comment on above: Performed By: #### BMP, GFR #### [address] [address] Calcium [Mass/Vol] 8.9 mg/dL Normal 8.4-10.2 [facility] ([place]) Comment on above: Performed By: #### BMP, GFR #### [address] [address] Performed By: #### CBC, CMP, PHV, LIP, ADIFF, ANEU, GFR, MARLI #### [address] [address] Chloride [Moles/Vol] 104 mmol/L Normal 98-107 [facility] ([place]) Comment on above: Performed By: #### BMP, GFR #### [address] [address] Performed By: #### CBC, CMP, PHV, LIP, ADIFF, ANEU, GFR, MARLI #### [address] [address] CO2 [Moles/Vol] 27 mmol/L Normal 23-31 [facility] ([place]) Comment on above: Performed By: #### BMP, GFR #### [address] [address] Creatinine [Mass/Vol] 1.15 mg/dL High 0.55-1.02 [facility] ([place]) Comment on above: Performed By: #### BMP, GFR #### [address] [address] Electrolyte Balance 11.0 mEq/L Normal [facility] ([place]) Comment on above: Performed By: #### BMP, GFR #### [address] [address] Glucose [Mass/Vol] 240 mg/dL High 80-115 [facility] ([place]) Comment on above: Performed By: #### BMP, GFR #### [address] [address] Potassium [Moles/Vol] 4.0 mmol/L Normal 3.5-5.1 [facility] ([place]) Comment on above: Performed By: #### BMP, GFR #### [address] [address] Sodium [Moles/Vol] 142 mmol/L Normal 136-145 [facility] ([place]) Comment on above: Performed By: #### BMP, GFR #### [address] [address] Performed By: #### CBC, CMP, PHV, LIP, ADIFF, ANEU, GFR, MARLI #### [address] [address] Urea nitrogen [Mass/Vol] 13 mg/dL Normal 7-18 [facility] ([place]) Comment on above: Performed By: #### BMP, GFR #### [address] [address] CBC on 07-28-2020 Erythrocyte distribution width 14.9 % High 11.5-14.5 [facility]) (RBC) [Ratio] Comment on above: Performed By: #### CBC, CMP, PHV, LIP, ADIFF, ANEU, GFR, MARLI #### [address] [place] [address] Hematocrit (Bld) [Volume 39.2 % Normal 37.0-47.0 [facility] ([place]) fraction] Comment on above: Performed By: #### CBC, CMP, PHV, LIP, ADIFF, ANEU, GFR, MARLI #### [address] [address] Hgb 12.8 G/dL Normal 12.0-16.0 [facility] ([place]) Comment on above: Performed By: #### CBC, CMP, PHV, LIP, ADIFF, ANEU, GFR, MARLI #### [address] [address] MCH (RBC) [Entitic mass] 28.2 pg Normal 27.0-31.2 [facility] ([place]) Comment on above: Performed By: #### CBC, CMP, PHV, LIP, ADIFF, ANEU, GFR, MARLI #### [address] [address] MCHC 32.7 G/dL Low 33.0-37.0 [facility] ([place]) Comment on above: Performed By: #### CBC, CMP, PHV, LIP, ADIFF, ANEU, GFR, MARLI #### [address] [address] MCV (RBC) [Entitic vol] 86.1 fL Normal 80.0-94.0 [facility] ([place]) Comment on above: Performed By: #### CBC, CMP, PHV, LIP, ADIFF, ANEU, GFR, MARLI #### [address] [address] Platelet 281 10 3/mcL Normal 130-400 [facility] ([place]) Comment on above: Performed By: #### CBC, CMP, PHV, LIP, ADIFF, ANEU, GFR, MARLI #### [address] [address] Platelet mean volume (Bld) 9.2 fL Normal 7.4-10.4 [facility] ([place]) [Entitic vol] Comment on above: Performed By: #### CBC, CMP, PHV, LIP, ADIFF, ANEU, GFR, MARLI #### [place] [address] [place], [place] [address] RBC 4.55 10 6/mcL Normal 4.20-5.40 [facility] ([place]) Comment on above: Performed By: #### CBC, CMP, PHV, LIP, ADIFF, ANEU, GFR, AMRLI #### [place] [address] [place], [place] [address] WBC 11.70 10 3/mcL High 4.60-10.80 [facility] ([place]) Comment on above: Performed By: #### CBC, CMP, PHV, LIP, ADIFF, ANEU, GFR, MARLI #### [place] [address] [place], [place] [address] [place] MAMMOGRAM SCREENING BILATERAL W/RAMO on 07-28-2020 MA MAMMOGRAM ORIGINAL [facility] SCREENING BILATERAL FROM: [place] ([place]) W/RAMO [address] [address] PROCEDURE FOR: SONI CRAMER [address] [place] [address] Home: PID#: [id number] Exam#: [id number] : 1955 Age: 64 TO: YOU PARKS MD [facility] [place] [address] Fax: NO FAX #[phone] BILATERAL DIGITAL SCREENING MAMMOGRAM 3D/2D WITH CAD WITH MEDIOLATERAL OBLIQUE CRANIOCAUDAL: 07/28/2020 Comparison is made to exams dated: 11/07/2016 mammogram and 11/29/2014 mammogram - [facility]. The tissue of both breasts is predominately fatty. Current study was also evaluated with a Computer Aided Detection (CAD) system. No significant masses, calci fications, or other findings are seen in either breast. There has been no significant interval change. IMPRESSION: NEGATIVE There is no mammographic yuliet dence of malignancy. A 1 year screening mammogram is recommended.(07/29/2021) MARGARET flores/mile:07/29/2020 10:10:09 Printing Plate Setter(s): MIO FLORES RT(R) (M), [facility] letter sent: Normal BI-RADS 1&2 Mammogram BI-RADS: 1 Negative PTH on 07-28-2020 PTH, Intact 154.4 pg/mL High 18.5-88.0 [facility] ([place]) Comment on above: Performed By: #### CBC, CMP, PHV, LIP, ADIFF, ANEU, GFR, MARLI #### [address] [address] RFP on 07-28-2020 Albumin Level 3.3 G/dL Low 3.4-4.8 [facility]) Comment on above: Performed By: #### CBC, CMP, PHV, LIP, ADIFF, ANEU, GFR, MARLI #### [address] [address] BUN/Creatinine Ratio 12 ratio Normal 7-27 [facility]) Comment on above: Performed By: #### CBC, CMP, PHV, LIP, ADIFF, ANEU, GFR, MARLI #### [address] [address] CO2 [Moles/Vol] 28 mmol/L Normal 23-31 [facility] ([place]) Comment on above: Performed By: #### CBC, CMP, PHV, LIP, ADIFF, ANEU, GFR, MARLI #### [address] [address] Creatinine [Mass/Vol] 1.19 mg/dL High 0.55-1.02 [facility] ([place]) Comment on above: Performed By: #### CBC, CMP, PHV, LIP, ADIFF, ANEU, GFR, MARLI #### [address] [address] Electrolyte Balance 10.0 mEq/L Normal [facility] ([place]) Comment on above: Performed By: #### CBC, CMP, PHV, LIP, ADIFF, ANEU, GFR, MARLI #### [address] [address] Glucose [Mass/Vol] 241 mg/dL High 80-115 [facility] ([place]) Comment on above: Performed By: #### CBC, CMP, PHV, LIP, ADIFF, ANEU, GFR, MARLI #### [address] [address] Phosphate [Mass/Vol] 3.3 mg/dL Normal 2.3-4.1 [facility] ([place]) Comment on above: Performed By: #### CBC, CMP, PHV, LIP, ADIFF, ANEU, GFR, MARLI #### [address] [address] Potassium [Moles/Vol] 4.1 mmol/L Normal 3.5-5.1 [facility] ([place]) Comment on above: Performed By: #### CBC, CMP, PHV, LIP, ADIFF, ANEU, GFR, MARLI #### [address] [address] Urea nitrogen [Mass/Vol] 14 mg/dL Normal 7-18 [facility] ([place]) Comment on above: Performed By: #### CBC, CMP, PHV, LIP, ADIFF, ANEU, GFR, MARLI #### [address] [address] VIDH on 07-28-2020 Vit. D 25-Hydroxy 25.6 ng/mL Normal [facility] ([place]) Comment on above: Result Comment: Interpretive Values Based on Total 25([place])D: Severe Deficiency <20 ng/mL Mild to Moderate Deficiency 20-30 ng/mL Optimum Levels 30-100 ng/mL Toxicity Possible >100 ng/mL Performed By: #### CBC, CMP, PHV, LIP, ADIFF, ANEU, GFR, MARLI #### [address] [address] XR CHEST 2 VIEWS on 07-06-2020 XR CHEST 2 VIEWS ORIGINAL Normal [facility] XR CHEST 2 VIEWS, 07/05/2020 4:07 PM ([place]) INDICATION: SOB COMPARISON: May 2019 FINDINGS: The [...] Date: 07/06/2020 8:57:24 AM Ordering Provider:You Parks .GFR on 05-19-2020 GFR 54 ml/min/1.73sqm Normal [facility] ([place]) Comment on above: Result Comment: GFR Population mean for Afri can Tunisian, Non- Americans Ages 20-29 = 116 mL/min/1.73 sq.m. Ages 30-39 = 107 mL/min/1.73 sq.m. Ages 40-49 = 99 mL/min/1.73 sq.m. Ages 50-59 = 93 mL/min/1.73 sq.m. Ages 60-69 = 85 mL/min/1.73 sq.m. Ages 70+ = 75 mL/min/1.73 sq .m. Chronic Kidney Disease: Less than 60 mL/min/1.73 square meters End Stage Renal Disease: Les s than 15 mL/min/1.73 square meters Performed By: #### GFR, CMP #### [address] [address] #### A1C #### [place] [address] GFR Non- 45 ml/min/1.73sqm Normal [facility] ([place]) Comment on above: Result Comment: GFR Population mean for Afri can Tunisian, Non- Americans Ages 20-29 = 116 mL/min/1.73 sq.m. Ages 30-39 = 107 mL/min/1.73 sq.m. Ages 40-49 = 99 mL/min/1.73 sq.m. Ages 50-59 = 93 mL/min/1.73 sq.m. Ages 60-69 = 85 mL/min/1.73 sq.m. Ages 70+ = 75 mL/min/1.73 sq .m. Chronic Kidney Disease: Less than 60 mL/min/1.73 square meters End Stage Renal Disease: Les s than 15 mL/min/1.73 square meters Performed By: #### GFR, CMP #### [address] [address] #### A1C #### [address] [address] A1C on 05-19-2020 HbA1c (Bld) [Mass fraction] 9.2 % High 4.3-6.4 [facility] ([place]) Comment on above: Performed By: #### GFR, CMP #### [place] [address] #### A1C #### [address] [address] CMP on 05-19-2020 Albumin Level 3.3 G/dL Low 3.4-4.8 [facility] ([place]) Comment on above: Performed By: #### GFR, CMP #### [place] [address] #### A1C #### [address] [address] Albumin/Globulin [Mass ratio] 0.8 {ratio} Low 1.1-2.5 [facility] ([place]) Comment on above: Performed By: #### GFR, CMP #### [address] [address] #### A1C #### [address] [address] ALP [Catalytic activity/Vol] 194 U/L High 40-135 [facility] ([place]) Comment on above: Performed By: #### GFR, CMP #### [place] [address] #### A1C #### [address] [address] ALT [Catalytic activity/Vol] 27 U/L Normal 14-59 [facility] ([place]) Comment on above: Performed By: #### GFR, CMP #### [place] [id number] #### A1C #### [address] [address] AST [Catalytic activity/Vol] 18 U/L Normal 10-40 [facility] ([place]) Comment on above: Performed By: #### GFR, CMP #### [address] [address] #### A1C #### [address] [address] Bili Total 0.7 mg/dL Normal 0.2-1.0 [facility] ([place]) Comment on above: Result Comment: Use of this assay is not recommended for patients undergoing treatment with eltrombopag d ue to the potential for falsely elevated results. Performed By: #### GFR, CMP #### [place] [address] #### A1C #### [address] [address] BUN/Creatinine Ratio 15 ratio Normal 7-27 [facility] ([place]) Comment on above: Performed By: #### GFR, CMP #### [place] [address] #### A1C #### [address] [address] Calcium [Mass/Vol] 9.5 mg/dL Normal 8.4-10.2 [facility] ([place]) Comment on above: Performed By: #### GFR, CMP #### [place] [address] #### A1C #### [address] [address] Chloride [Moles/Vol] 99 mmol/L Normal 98-107 [facility] ([place]) Comment on above: Performed By: #### GFR, CMP #### [place] [address] #### A1C #### [address] [address] CO2 [Moles/Vol] 27 mmol/L Normal 23-31 [facility] ([place]) Comment on above: Performed By: #### GFR, CMP #### [address] [address] #### A1C #### [address] [address] Creatinine [Mass/Vol] 1.21 mg/dL High 0.55-1.02 [facility] ([place]) Comment on above: Performed By: #### GFR, CMP #### [address] [address] #### A1C #### [address] [address] Electrolyte Balance 9.0 mEq/L Normal [facility] ([place]) Comment on above: Performed By: #### GFR, CMP #### [address] [address] #### A1C #### [address] [address] Globulin 3.9 G/dL Normal [facility] ([place]) Comment on above: Performed By: #### GFR, CMP #### [address] [address] #### A1C #### [address] [address] Glucose [Mass/Vol] 311 mg/dL High 80-115 [facility] ([place]) Comment on above: Performed By: #### GFR, CMP #### [address] [address] #### A1C #### [address] [address] Potassium [Moles/Vol] 4.8 mmol/L Normal 3.5-5.1 [facility] ([place]) Comment on above: Performed By: #### GFR, CMP #### [address] [address] #### A1C #### [address] [address] Sodium [Moles/Vol] 135 mmol/L Low 136-145 [facility] ([place]) Comment on above: Performed By: #### GFR, CMP #### [address] [address] #### A1C #### [address] [address] Total Protein 7.2 G/dL Normal 6.4-8.2 [facility] ([place]) Comment on above: Performed By: #### GFR, CMP #### [address] [address] #### A1C #### [address] [address] Urea nitrogen [Mass/Vol] 18 mg/dL Normal 7-18 [facility] ([place]) Comment on above: Performed By: #### GFR, CMP #### [address] [address] #### A1C #### [address] [address] .GFR on 03-21-2020 GFR 45 ml/min/1.73sqm Normal [facility] ([place]) Comment on above: Result Comment: GFR Population mean for Afri can Tunisian, Non- Americans Ages 20-29 = 116 mL/min/1.73 sq.m. Ages 30-39 = 107 mL/min/1.73 sq.m. Ages 40-49 = 99 mL/min/1.73 sq.m. Ages 50-59 = 93 mL/min/1.73 sq.m. Ages 60-69 = 85 mL/min/1.73 sq.m. Ages 70+ = 75 mL/min/1.73 sq .m. Chronic Kidney Disease: Less than 60 mL/min/1.73 square meters End Stage Renal Disease: Les s than 15 mL/min/1.73 square meters Performed By: #### CBC, CMP, PHV, LIP, ADIFF, ANEU, GFR, MARLI #### [address] [address] GFR Non- 37 ml/min/1.73sqm Normal [facility] ([place]) Comment on above: Result Comment: GFR Population mean for Afri can Tunisian, Non- Americans Ages 20-29 = 116 mL/min/1.73 sq.m. Ages 30-39 = 107 mL/min/1.73 sq.m. Ages 40-49 = 99 mL/min/1.73 sq.m. Ages 50-59 = 93 mL/min/1.73 sq.m. Ages 60-69 = 85 mL/min/1.73 sq.m. Ages 70+ = 75 mL/min/1.73 sq .m. Chronic Kidney Disease: Less than 60 mL/min/1.73 square meters End Stage Renal Disease: Les s than 15 mL/min/1.73 square meters Performed By: #### CBC, CMP, PHV, LIP, ADIFF, ANEU, GFR, MARLI #### [address] [address] BMP on 03-21-2020 BUN/Creatinine Ratio 13 ratio Normal 7-27 [facility] ([place]) Comment on above: Performed By: #### CBC, CMP, PHV, LIP, ADIFF, ANEU, GFR, MARLI #### [address] [address] Calcium [Mass/Vol] 9.6 mg/dL Normal 8.4-10.2 [facility] ([place]) Comment on above: Performed By: #### CBC, CMP, PHV, LIP, ADIFF, ANEU, GFR, MARLI #### [address] [address] Chloride [Moles/Vol] 96 mmol/L Low 98-107 [facility] ([place]) Comment on above: Performed By: #### CBC, CMP, PHV, LIP, ADIFF, ANEU, GFR, MARLI #### [address] [address] CO2 [Moles/Vol] 27 mmol/L Normal 23-31 [facility] ([place]) Comment on above: Performed By: #### CBC, CMP, PHV, LIP, ADIFF, ANEU, GFR, MARLI #### [address] [address] Creatinine [Mass/Vol] 1.42 mg/dL High 0.55-1.02 [facility] ([place]) Comment on above: Performed By: #### CBC, CMP, PHV, LIP, ADIFF, ANEU, GFR, MARLI #### [address] [address] Electrolyte Balance 11.0 mEq/L Normal [facility] ([place]) Comment on above: Performed By: #### CBC, CMP, PHV, LIP, ADIFF, ANEU, GFR, MARLI #### [address] [address] Glucose [Mass/Vol] 397 mg/dL High 80-115 [facility] ([place]) Comment on above: Performed By: #### CBC, CMP, PHV, LIP, ADIFF, ANEU, GFR, MARLI #### [address] [address] Potassium [Moles/Vol] 4.8 mmol/L Normal 3.5-5.1 [facility]) Comment on above: Performed By: #### CBC, CMP, PHV, LIP, ADIFF, ANEU, GFR, MARLI #### [address] [address] Sodium [Moles/Vol] 134 mmol/L Low 136-145 [facility] ([place]) Comment on above: Performed By: #### CBC, CMP, PHV, LIP, ADIFF, ANEU, GFR, MARLI #### [address] [address] Urea nitrogen [Mass/Vol] 18 mg/dL Normal 7-18 [facility] ([place]) Comment on above: Performed By: #### CBC, CMP, PHV, LIP, ADIFF, ANEU, GFR, MARLI #### [address] [address] NM BONE IMAGING WHOLE BODY on 03-01-2020 NM BONE IMAGING WHOLE ORIGINAL Normal [facility] BODY EXAM: NM BONE IMAGING WHOLE BODY 02/29/2020 1:37 PM [facility] [facility]: LEFT posterior late ral ribs/chest wall pain x11 weeks status post fall COMPARISON: MRI lumbar spine 08/18/2019, x-ray LEFT an kle 09/12/2015 30.7 millicuries of techneti um 99m MDP [...] activity is noted in the kidneys and urina ry bladder. IMPRESSION: No recent rib fracture or in [...] Sign Date: 03/01/2020 1:36:16 PM Ordering Provider:You Parks .Auto Diff on 2019 Basophil, Absolute 0.10 10 3/mcL Normal 0.00-0.19 [facility] ([place]) Comment on above: Performed By: #### CBC, CMP, PHV, LIP, ADIFF, ANEU, GFR, MARLI #### [address] [address] Basophils/100 WBC (Bld) 0.6 % Normal 0.0-2.5 [facility] ([place]) Comment on above: Performed By: #### CBC, CMP, PHV, LIP, ADIFF, ANEU, GFR, MARLI #### [address] [address] Eosinophil, Absolute 0.30 10 3/mcL Normal 0.00-0.40 [facility] ([place]) Comment on above: Performed By: #### CBC, CMP, PHV, LIP, ADIFF, ANEU, GFR, MARLI #### [address] [address] Eosinophils/100 WBC (Bld) 2.4 % Normal 0.0-7.0 [facility] ([place]) Comment on above: Performed By: #### CBC, CMP, PHV, LIP, ADIFF, ANEU, GFR, MARLI #### [address] [address] Lymphocyte, Absolute 1.60 10 3/mcL Normal 0.77-3.85 [facility] ([place]) Comment on above: Performed By: #### CBC, CMP, PHV, LIP, ADIFF, ANEU, GFR, MARLI #### [address] [address] Lymphocytes/100 WBC (Bld) 14.6 % Normal 10.0-50.0 [facility] ([place]) Comment on above: Performed By: #### CBC, CMP, PHV, LIP, ADIFF, ANEU, GFR, MARLI #### [address] [address] Monocyte, Absolute 0.80 10 3/mcL Normal 0.15-1.00 [facility] ([place]) Comment on above: Performed By: #### CBC, CMP, PHV, LIP, ADIFF, ANEU, GFR, MARLI #### [address] [address] Monocytes/100 WBC (Bld) 6.8 % Normal 1.7-13.0 [facility] ([place]) Comment on above: Performed By: #### CBC, CMP, PHV, LIP, ADIFF, ANEU, GFR, MARLI #### [address] [address] Neutrophils/100 WBC (Bld) 75.6 % Normal 37.0-80.0 [facility] ([place]) Comment on above: Performed By: #### CBC, CMP, PHV, LIP, ADIFF, ANEU, GFR, MARLI #### [address] [address] .GFR on 02-25-2020 GFR 49 ml/min/1.73sqm Normal [facility] ([place]) Comment on above: Result Comment: GFR Population mean for Afri can Tunisian, Non- Americans Ages 20-29 = 116 mL/min/1.73 sq.m. Ages 30-39 = 107 mL/min/1.73 sq.m. Ages 40-49 = 99 mL/min/1.73 sq.m. Ages 50-59 = 93 mL/min/1.73 sq.m. Ages 60-69 = 85 mL/min/1.73 sq.m. Ages 70+ = 75 mL/min/1.73 sq .m. Chronic Kidney Disease: Less than 60 mL/min/1.73 square meters End Stage Renal Disease: Les s than 15 mL/min/1.73 square meters Performed By: #### GFR, CMP #### [address] [address] #### A1C #### [address] [address] GFR Non- 41 ml/min/1.73sqm Normal [facility] ([place]) Comment on above: Result Comment: GFR Population mean for Afri can Tunisian, Non- Americans Ages 20-29 = 116 mL/min/1.73 sq.m. Ages 30-39 = 107 mL/min/1.73 sq.m. Ages 40-49 = 99 mL/min/1.73 sq.m. Ages 50-59 = 93 mL/min/1.73 sq.m. Ages 60-69 = 85 mL/min/1.73 sq.m. Ages 70+ = 75 mL/min/1.73 sq .m. Chronic Kidney Disease: Less than 60 mL/min/1.73 square meters End Stage Renal Disease: Les s than 15 mL/min/1.73 square meters Performed By: #### GFR, CMP #### [address] [address] #### A1C #### [address] [address] .NEUABS on 0 Neutrophil, Absolute 8.50 10 3/mcL High 2.85-6.16 [facility] ([place]) Comment on above: Performed By: #### CBC, CMP, PHV, LIP, ADIFF, ANEU, GFR, MARLI #### [place] [id number] MARLI on 02-25-2020 Acetone (s) Negative Normal Negative [facility] ([place]) Comment on above: Performed By: #### CBC, CMP, PHV, LIP, ADIFF, ANEU, GFR, MARLI #### [place] [address] CBC on 02-25-2020 Erythrocyte distribution width 14.8 % High 11.5-14.5 [facility] ([place]) (RBC) [Ratio] Comment on above: Performed By: #### CBC, CMP, PHV, LIP, ADIFF, ANEU, GFR, MARLI #### [place] [address] Hematocrit (Bld) [Volume 40.2 % Normal 37.0-47.0 [facility] ([place]) fraction] Comment on above: Performed By: #### CBC, CMP, PHV, LIP, ADIFF, ANEU, GFR, MARLI #### [place] [address] Hgb 13.2 G/dL Normal 12.0-16.0 [facility] ([place]) Comment on above: Performed By: #### CBC, CMP, PHV, LIP, ADIFF, ANEU, GFR, MARLI #### [place] [address] MCH (RBC) [Entitic mass] 27.7 pg Normal 27.0-31.2 [facility] ([place]) Comment on above: Performed By: #### CBC, CMP, PHV, LIP, ADIFF, ANEU, GFR, MARLI #### [place] [address] MCHC 32.8 G/dL Low 33.0-37.0 [facility] ([place] Comment on above: Performed By: #### CBC, CMP, PHV, LIP, ADIFF, ANEU, GFR, MARLI #### [address] [place] [address] MCV (RBC) [Entitic vol] 84.5 fL Normal 80.0-94.0 [facility] ([place]) Comment on above: Performed By: #### CBC, CMP, PHV, LIP, ADIFF, ANEU, GFR, MARLI #### [address] [address] Platelet 265 10 3/mcL Normal 130-400 [facility] ([place]) Comment on above: Performed By: #### CBC, CMP, PHV, LIP, ADIFF, ANEU, GFR, MARLI #### [address] [address] Platelet mean volume (Bld) 8.1 fL Normal 7.4-10.4 [facility] ([place]) [Entitic vol] Comment on above: Performed By: #### CBC, CMP, PHV, LIP, ADIFF, ANEU, GFR, MARLI #### [address] [address] RBC 4.76 10 6/mcL Normal 4.20-5.40 [facility] ([place]) Comment on above: Performed By: #### CBC, CMP, PHV, LIP, ADIFF, ANEU, GFR, MARLI #### [address] [address] WBC 11.20 10 3/mcL High 4.60-10.80 [facility] ([place]) Comment on above: Performed By: #### CBC, CMP, PHV, LIP, ADIFF, ANEU, GFR, MARLI #### [address] [address] CMP on 02-25-2020 Albumin Level 3.6 G/dL Normal 3.4-4.8 [facility] ([place] Comment on above: Performed By: #### GFR, CMP #### [address] [address] #### A1C #### [address] [address] Albumin/Globulin [Mass ratio] 1.0 {ratio} Low 1.1-2.5 [facility] ([place]) Comment on above: Performed By: #### GFR, CMP #### [address] [address] #### A1C #### [facility] [address] [place] [address] ALP [Catalytic activity/Vol] 192 U/L High 40-135 [facility] ([place]) Comment on above: Performed By: #### GFR, CMP #### [address] [address] #### A1C #### [facility] [address] [place] [address] ALT [Catalytic activity/Vol] 21 U/L Normal 10-35 [facility] ([place]) Comment on above: Performed By: #### GFR, CMP #### [address] [address] #### A1C #### [address] [address] AST [Catalytic activity/Vol] 14 U/L Normal 10-40 [facility] ([place]) Comment on above: Performed By: #### GFR, CMP #### [address] [address] #### A1C #### [address] [address] Bili Total 1.0 mg/dL Normal 0.2-1.0 [facility] ([place]) Comment on above: Result Comment: Use of this assay is not recommended for patients undergoing treatment with eltrombopag d ue to the potential for falsely elevated results. Performed By: #### GFR, CMP #### [address] [address] #### A1C #### [address] [address] BUN/Creatinine Ratio 13 ratio Normal 7-27 [facility] ([place]) Comment on above: Performed By: #### GFR, CMP #### [address] [address] #### A1C #### [address] [address] Calcium [Mass/Vol] 9.6 mg/dL Normal 8.4-10.2 [facility] ([place]) Comment on above: Performed By: #### GFR, CMP #### [address] [address] #### A1C #### [address] [address] Chloride [Moles/Vol] 97 mmol/L Low 98-107 [facility] ([place]) Comment on above: Performed By: #### GFR, CMP #### [address] [address] #### A1C #### [address] [address] CO2 [Moles/Vol] 34 mmol/L High 23-31 [facility] ([place]) Comment on above: Performed By: #### GFR, CMP #### [address] [address] #### A1C #### [address] [address] Creatinine [Mass/Vol] 1.31 mg/dL High 0.55-1.02 [facility] ([place]) Comment on above: Performed By: #### GFR, CMP #### [address] [address] #### A1C #### [address] [address] Electrolyte Balance 4.0 mEq/L Normal [facility] ([place]) Comment on above: Performed By: #### GFR, CMP #### [address] [address] #### A1C #### [address] [address] Globulin 3.6 G/dL Normal [facility] ([place]) Comment on above: Performed By: #### GFR, CMP #### [address] [address] #### A1C #### [address] [address] Glucose [Mass/Vol] 428 mg/dL Critically abnormal 80-115 [facility] ([place]) Comment on above: Performed By: #### GFR, CMP #### [address] [address] #### A1C #### [address] [address] Potassium [Moles/Vol] 4.8 mmol/L Normal 3.5-5.1 [facility] ([place]) Comment on above: Performed By: #### GFR, CMP #### [address] [address] #### A1C #### [address] [address] Sodium [Moles/Vol] 135 mmol/L Low 136-145 [facility] ([place]) Comment on above: Performed By: #### GFR, CMP #### [address] [address] #### A1C #### [address] [address] Total Protein 7.2 G/dL Normal 6.4-8.2 [facility] ([place]) Comment on above: Performed By: #### GFR, CMP #### [address] [address] #### A1C #### [address] [address] Urea nitrogen [Mass/Vol] 17 mg/dL Normal 7-18 [facility] ([place]) Comment on above: Performed By: #### GFR, CMP #### [address] [address] #### A1C #### [address] [address] LIP on 02-25-2020 Lipase Level 76 U/L Normal 73-393 [facility] ([place]) Comment on above: Performed By: #### GFR, CMP #### [address] [address] #### A1C #### [address] [address] PHV on 02-25-2020 pH Venous 7.39 Normal 7.31-7.41 [facility] ([place]) Comment on above: Performed By: #### CBC, CMP, PHV, LIP, ADIFF, ANEU, GFR, MARLI #### [address] [address] TROP on 02-25-2020 Troponin I.cardiac [Mass/Vol] ng/mL Normal 0.000-0.040 [facility] ([place]) Comment on above: Result Comment: Troponin I r eference range: 0.00-0.040 ng/mL Negative an d non-diagnostic. >0.040 ng/mL Consistent with cardiac damage, increased clinical risk and possibility of myocardial in farction. Serial measurements, a rise & fall in test results, clinical histo ry, appropriate symptoms and/or ECG changes may help assess possibility of RI. *Other non-acute coronary sy ndrome conditions such as CHF, myoc arditis, pulmonary emboli, sepsis and cardiac surgery could result in myoc ardial damage and increased troponi n levels. Performed By: #### GFR, CMP #### [address] [address] #### A1C #### [address] [address] UA on 02-25-2020 Color (U) Yellow Normal [facility] ([place]) Comment on above: Performed By: #### CBC, CMP, PHV, LIP, ADIFF, ANEU, GFR, MARLI #### [address] [address] Glucose (U) [Mass/Vol] 500 mg/dL Abnormal Negative [facility] ([place]) Comment on above: Performed By: #### CBC, CMP, PHV, LIP, ADIFF, ANEU, GFR, MARLI #### [address] [address] Ketones Ql (U) Negative Normal Negative [facility] ([place]) Comment on above: Performed By: #### CBC, CMP, PHV, LIP, ADIFF, ANEU, GFR, MARLI #### [address] [address] UA Appear Clear Normal Clear [facility] ([place]) Comment on above: Performed By: #### CBC, CMP, PHV, LIP, ADIFF, ANEU, GFR, MARLI #### [address] [address] UA Blood Trace Abnormal Negative [facility] ([place]) Comment on above: Performed By: #### CBC, CMP, PHV, LIP, ADIFF, ANEU, GFR, MARLI #### [address] [address] UA Leuk Est Negative Normal Negative [facility] ([place]) Comment on above: Performed By: #### CBC, CMP, PHV, LIP, ADIFF, ANEU, GFR, MARLI #### [address] [address] UA Nitrite Negative Normal Negative [facility] ([place]) Comment on above: Performed By: #### CBC, CMP, PHV, LIP, ADIFF, ANEU, GFR, MARLI #### [address] [address] UA pH 7.0 Normal 5.0 - 8.0 [facility] ([place]) Comment on above: Performed By: #### CBC, CMP, PHV, LIP, ADIFF, ANEU, GFR, MARLI #### [address] [address] UA Protein Trace Normal Negative [facility] ([place]) Comment on above: Performed By: #### CBC, CMP, PHV, LIP, ADIFF, ANEU, GFR, MARLI #### [address] [address] UA Spec Grav 1.020 Normal 1.015-1.025 [facility] ([place]) Comment on above: Performed By: #### CBC, CMP, PHV, LIP, ADIFF, ANEU, GFR, MARLI #### [address] [address] UA Specimen Type Clean Catch Normal [facility] ([place]) Comment on above: Performed By: #### CBC, CMP, PHV, LIP, ADIFF, ANEU, GFR, MARLI #### [address] [address] UA Urobilinogen 0.2 E.U./dL Normal 0.2-1.0 [facility] ([place]) Comment on above: Performed By: #### CBC, CMP, PHV, LIP, ADIFF, ANEU, GFR, MARLI #### [address] [address] Urobilinogen (U) [Mass/Vol] Negative Normal Negative [facility] ([place]) Comment on above: Performed By: #### CBC, CMP, PHV, LIP, ADIFF, ANEU, GFR, MARLI #### [address] [address] .GFR on 02-24-2020 GFR 51 ml/min/1.73sqm Normal [facility] ([place]) Comment on above: Result Comment: GFR Population mean for Afri can Tunisian, Non- Americans Ages 20-29 = 116 mL/min/1.73 sq.m. Ages 30-39 = 107 mL/min/1.73 sq.m. Ages 40-49 = 99 mL/min/1.73 sq.m. Ages 50-59 = 93 mL/min/1.73 sq.m. Ages 60-69 = 85 mL/min/1.73 sq.m. Ages 70+ = 75 mL/min/1.73 sq .m. Chronic Kidney Disease: Less than 60 mL/min/1.73 square meters End Stage Renal Disease: Les s than 15 mL/min/1.73 square meters Performed By: #### CBC, CMP, PHV, LIP, ADIFF, ANEU, GFR, MARLI #### [address] [address] GFR Non- 42 ml/min/1.73sqm Normal [facility] ([place]) Comment on above: Result Comment: GFR Population mean for Afri can [place]ian, Non- Americans Ages 20-29 = 116 mL/min/1.73 sq.m. Ages 30-39 = 107 mL/min/1.73 sq.m. Ages 40-49 = 99 mL/min/1.73 sq.m. Ages 50-59 = 93 mL/min/1.73 sq.m. Ages 60-69 = 85 mL/min/1.73 sq.m. Ages 70+ = 75 mL/min/1.73 sq .m. Chronic Kidney Disease: Less than 60 mL/min/1.73 square meters End Stage Renal Disease: Les s than 15 mL/min/1.73 square meters Performed By: #### CBC, CMP, PHV, LIP, ADIFF, ANEU, GFR, MARLI #### [address] [address] A1C on 02-24-2020 HbA1c (Bld) [Mass fraction] 9.2 % High 4.3-6.4 [facility] ([place]) Comment on above: Performed By: #### CBC, CMP, PHV, LIP, ADIFF, ANEU, GFR, MARLI #### [address] [address] CMP on 02-24-2020 Albumin Level 3.5 G/dL Normal 3.4-4.8 [facility] ([place]) Comment on above: Performed By: #### CBC, CMP, PHV, LIP, ADIFF, ANEU, GFR, MARLI #### [address] [address] Albumin/Globulin [Mass ratio] 1.0 {ratio} Low 1.1-2.5 [facility] ([place]) Comment on above: Performed By: #### CBC, CMP, PHV, LIP, ADIFF, ANEU, GFR, MARLI #### [address] [address] ALP [Catalytic activity/Vol] 193 U/L High 40-135 [facility] ([place]) Comment on above: Performed By: #### CBC, CMP, PHV, LIP, ADIFF, ANEU, GFR, MARLI #### [address] [address] ALT [Catalytic activity/Vol] 22 U/L Normal 10-35 [facility] ([place]) Comment on above: Performed By: #### CBC, CMP, PHV, LIP, ADIFF, ANEU, GFR, MARLI #### [address] [address] AST [Catalytic activity/Vol] 16 U/L Normal 10-40 [facility] ([place]) Comment on above: Performed By: #### CBC, CMP, PHV, LIP, ADIFF, ANEU, GFR, MARLI #### [address] [address] Bili Total 0.7 mg/dL Normal 0.2-1.0 [facility] ([place]) Comment on above: Result Comment: Use of this assay is not recommended for patients undergoing treatment with eltrombopag d ue to the potential for falsely elevated results. Performed By: #### CBC, CMP, PHV, LIP, ADIFF, ANEU, GFR, MARLI #### [address] [address] BUN/Creatinine Ratio 13 ratio Normal 7-27 [facility]) Comment on above: Performed By: #### CBC, CMP, PHV, LIP, ADIFF, ANEU, GFR, MARLI #### [address] [address] Calcium [Mass/Vol] 9.3 mg/dL Normal 8.4-10.2 [facility]) Comment on above: Performed By: #### CBC, CMP, PHV, LIP, ADIFF, ANEU, GFR, MARLI #### [address] [address] Chloride [Moles/Vol] 95 mmol/L Low 98-107 [facility] ([place]) Comment on above: Performed By: #### CBC, CMP, PHV, LIP, ADIFF, ANEU, GFR, MARLI #### [address] [address] CO2 [Moles/Vol] 30 mmol/L Normal 23-31 [facility] ([place]) Comment on above: Performed By: #### CBC, CMP, PHV, LIP, ADIFF, ANEU, GFR, MARLI #### [address] [address] Creatinine [Mass/Vol] 1.28 mg/dL High 0.55-1.02 [facility] ([place]) Comment on above: Performed By: #### CBC, CMP, PHV, LIP, ADIFF, ANEU, GFR, MARLI #### [address] [address] Electrolyte Balance 8.0 mEq/L Normal [facility] ([place]) Comment on above: Performed By: #### CBC, CMP, PHV, LIP, ADIFF, ANEU, GFR, MARLI #### [address] [address] Globulin 3.4 G/dL Normal [facility] ([place]) Comment on above: Performed By: #### CBC, CMP, PHV, LIP, ADIFF, ANEU, GFR, MARLI #### [address] [address] Glucose [Mass/Vol] 458 mg/dL Critically abnormal 80-115 [facility] ([place]) Comment on above: Performed By: #### CBC, CMP, PHV, LIP, ADIFF, ANEU, GFR, MARLI #### [address] [address] Potassium [Moles/Vol] 4.6 mmol/L Normal 3.5-5.1 [facility] ([place]) Comment on above: Performed By: #### CBC, CMP, PHV, LIP, ADIFF, ANEU, GFR, MARLI #### [address] [address] Sodium [Moles/Vol] 133 mmol/L Low 136-145 [facility] ([place]) Comment on above: Performed By: #### CBC, CMP, PHV, LIP, ADIFF, ANEU, GFR, MARLI #### [address] [address] Total Protein 6.9 G/dL Normal 6.4-8.2 [facility] ([place]) Comment on above: Performed By: #### CBC, CMP, PHV, LIP, ADIFF, ANEU, GFR, MARLI #### [address] [address] Urea nitrogen [Mass/Vol] 17 mg/dL Normal 7-18 [facility] ([place]) Comment on above: Performed By: #### CBC, CMP, PHV, LIP, ADIFF, ANEU, GFR, MARLI #### [address] [address] FT4 on 02-24-2020 Free T4 [Mass/Vol] 1.37 ng/dL Normal 0.76-1.46 [facility] ([place]) Comment on above: Performed By: #### CBC, CMP, PHV, LIP, ADIFF, ANEU, GFR, MARLI #### [address] [address] LIPID on 02-24-2020 Cholesterol [Mass/Vol] 134 mg/dL Normal 0-200 [facility] ([place]) Comment on above: Result Comment: Cholesterol Reference Interval: Less than 200 Desirable 200-239 Borderline high risk 240 and above High risk Performed By: #### CBC, CMP, PHV, LIP, ADIFF, ANEU, GFR, MARLI #### [address] [address] Cholesterol in HDL [Mass/Vol] 45 mg/dL Normal 40-60 [facility] ([place]) Comment on above: Performed By: #### CBC, CMP, PHV, LIP, ADIFF, ANEU, GFR, MARLI #### [address] [address] Cholesterol in LDL [Mass/Vol] 55 mg/dL Normal 0-130 [facility] ([place]) Comment on above: Performed By: #### CBC, CMP, PHV, LIP, ADIFF, ANEU, GFR, MARLI #### [address] [address] Triglyceride [Mass/Vol] 171 mg/dL High 0-150 [facility] ([place]) Comment on above: Result Comment: Triglyceride Reference Interval: Less than 150 Normal 150-199 Borderline high risk 200-499 High risk 500 or higher Very high risk Performed By: #### CBC, CMP, PHV, LIP, ADIFF, ANEU, GFR, MARLI #### [address] [address] TSH on 02-24-2020 TSH Qn 2.13 m[IU]/L Normal 0.36-3.74 [facility] ([place]) Comment on above: Performed By: #### CBC, CMP, PHV, LIP, ADIFF, ANEU, GFR, MARLI #### [address] [address] URIC on 02-24-2020 Uric Acid Lvl 4.7 mg/dL Normal 2.6-6.2 [facility] ([place]) Comment on above: Performed By: #### CBC, CMP, PHV, LIP, ADIFF, ANEU, GFR, MARLI #### [address] [address] VIDH on 02-24-2020 Vit. D 25-Hydroxy 24 ng/mL Normal [facility] ([place]) Comment on above: Result Comment: Interpretive Values Based on Total 25(OH)D: Severe Deficiency <20 ng/mL Mild to Moderate Deficiency 20-30 ng/mL Optimum Levels 30-100 ng/mL Toxicity Possible >100 ng/mL Performed By: #### CBC, CMP, PHV, LIP, ADIFF, ANEU, GFR, MARLI #### [address] [address] CBC W/DIFF on 2018 BASO ABS 0.10 K/CU MM Normal 0-0.2 [facility] [place] Comment on above: Performed By: #### L200.0005 0 ####[facility] [id number] [place], [place] [address]Jp# [phone] Basophils/100 WBC (Bld) 0.3 % Normal 0-2 [facility] [place] Comment on above: Performed By: #### L200.0005 0 ####[facility] [id number] [place], [place] [address]Mh# [phone] EOS ABS 0.30 K/CU MM Normal 0-0.5 [facility] [place] Comment on above: Performed By: #### L200.0005 0 ####[facility] [id number] [place], [place] [address]Ml# [phone] Eosinophils/100 WBC (Bld) 1.4 % Normal 0-5 [facility] Comment on above: Performed By: #### L200.0005 0 ####[facility] [id number] [place], [place] [address]Ze# [phone] Erythrocyte distribution width Ratio 16.5 % High 11-1 4.5 [facility] ([facility]BC) Comment on above: Performed By: #### L200.0005 0 ####[facility] [id number] [place] [address]Su# [phone] Hematocrit Volume Fraction (Bld) 35.7 % Normal 35.0-47. 0 [facility] Comment on above: Performed By: #### L200.0005 0 ####[facility] [id number] [place] [address]Tx# [phone] Hemoglobin mass conc (Bld) 11.1 g/dL Low 11.5-15.5 [facility] Comment on above: Performed By: #### L200.0005 0 ####[facility] [id number] [place], [place] [address]Xd# [phone] IMMATR GRAN ABS 0.10 K/CU MM Normal Less than 2 [facility] Comment on above: Performed By: #### L200.0005 0 ####[facility] [id number] [place], [place] [address]Nc# [phone] IMMATURE GRAN % 0.6 % Normal Less than 2 [facility] Comment on above: Performed By: #### L200.0005 0 ####[facility] [id number] [place], [place] [address]Bv# [phone] Lymphocytes #/vol (Bld) 4.10 K/CU MM Normal 0.9-4.4 [facility] Comment on above: Performed By: #### L200.0005 0 ####[facility] [id number] [facility], [place] [address]Ic# [phone] Lymphocytes/100 WBC (Bld) 18.5 % Low 20-40 [facility] Comment on above: Performed By: #### L200.0005 0 ####[facility] [id number] [facility], [place] [address]Go# [phone] MCHC mass conc (RBC) 31.1 g/dL Low 32.0-36.0 [facility] [place] Comment on above: Performed By: #### L200.0005 0 ####[facility] [id number] [facility], [place] [address]Zo# [phone] MCV Entitic volume (RBC) 83.6 fL Normal 80.0-99.0 [facility] [place] Comment on above: Performed By: #### L200.0005 0 ####[facility] [id number] [facility], [place] [address]Oo# [phone] MONO ABS 2.20 K/CU MM High 0.1-1.1 [facility] [place] Comment on above: Performed By: #### L200.0005 0 ####[facility] [id number] [facility], [place] [address]Cr# [phone] Monocytes/100 WBC (Bld) 9.8 % Normal 2-10 [facility] Comment on above: Performed By: #### L200.0005 0 ####[facility] [id number] [facility], [place] [address]Km# [phone] NEUTROPHIL ABS 15.50 K/CU MM High 2.0-8.3 [facility] [place] Comment on above: Performed By: #### L200.0005 0 ####[facility] [id number] [facility], [place] [address]Mf# [phone] Neutrophils/100 WBC (Bld) 69.4 % Normal 45-75 [facility] [place] Comment on above: Performed By: #### L200.0005 0 ####[facility] [id number] [place], [place] [address]Nw# [phone] Nucleated RBC/100 WBC Ratio 0.0 % Normal Less than 1 [facility] Comment on above: Performed By: #### L200.0005 0 ####[facility] [id number] [place], [place] [address]Mz# [phone] Platelet mean volume Entitic 11.0 fL Normal 9.4-12.4 [facility] volume (Bld) Comment on above: Performed By: #### L200.0005 0 ####[facility] [id number] [place], [place] [address]Uf# [phone] Platelets #/vol (Bld) 401 K/CU MM Normal 150-450 [facility] Comment on above: Performed By: #### L200.0005 0 ####[facility] [id number] [place], [place] [address]Aa# [phone] RBC #/vol (Bld) 4.27 M/CU MM Normal 3.90-5.30 [facility] Comment on above: Performed By: #### L200.0005 0 ####[facility] [id number] [place], [place] [address]Uw# [phone] WBC #/vol (Bld) 22.3 K/CUMM High 4.5-11.0 [facility] Comment on above: Performed By: #### L200.0005 0 ####[facility] [id number] [place], [place] [address]Ws# [phone] CMP on 08-31-2018 Albumin mass conc 2.9 g/dL Low 3.2-5.0 [facility] Comment on above: Performed By: #### L500.0140 0, L500.93917, L550.59659 ####[facility] [id number] [address] [place], [place] [address]Ao# [phone] Albumin/Globulin mass ratio 0.9 {ratio} Normal 0.8-2.0 [facility] [place] Comment on above: Performed By: #### L500.0140 0, L500.82344, L550.23583 ####[facility] [id number] 0 [place], [place] [address]Tf# [phone] ALK PHOS 179 U/L High 45-117 [facility] enter [place] Comment on above: Performed By: #### L500.0140 0, L500.56278, L550.65639 ####[facility] [id number] 0 [place], [place] [address]Yk# [phone] ALT enzyme act/vol 78 U/L High 13-61 [facility] [place] Comment on above: Result Comment: RESULTS MAY BE FALSELY DEPRESSED AFTER THE ADMINISTRATION OFSULFASALAZI NE AND/OR SULFAPYRIDINE. Performed By: #### L500.0140 0, L500.43616, L550.46078 ####[facility] [id number] 0 [place], [place] [address]Su# [phone] Anion gap molar conc 8 mmol/L Normal 5-16 [facility] [place] Comment on above: Performed By: #### L500.0140 0, L500.48439, L550.00343 ####[facility] [id number] [address] [place], [place] [address]By# [phone] BILI TOTAL 1.0 MG/DL Normal 0.2-1.0 [facility] [place] Comment on above: Performed By: #### L500.0140 0, L500.28698, L550.71561 ####[facility] [id number] 0 [place], [place] [address]Lr# [phone] Calcium mass conc 8.5 mg/dL Normal 8.5-10.1 [facility] [place] Comment on above: Performed By: #### L500.0140 0, L500.46828, L550.23673 ####[facility] [id number] [address] [place], [place] [address]Ay# [phone] Chloride molar conc 94 mmol/L Low 98-107 [facility] [place] Comment on above: Performed By: #### L500.0140 0, L500.91116, L550.77723 ####[facility] [id number] 0 [place], [place] [address]Wg# [phone] CO2 molar conc 28 mmol/L Normal 21-32 [facility] Comment on above: Performed By: #### L500.0140 0, L500.13988, L550.96855 ####[facility] [id number] [address] [place], [place] [address]Aa# [phone] Creatinine mass conc 3.850 mg/dL High 0.510-0.950 [facility] Comment on above: Result Comment: Patients rec eiving either N-Acetylcysteine (NAC) orMetamizole prior to venipu ncture, may have falsely depressedresults. Performed By: #### L500.0140 0, L500.26526, L550.78854 ####[facility] [id number] 0 [place], [place] [address]Ex# [phone] Globulin mass conc (S) 3.3 g/dL Normal 2.2-4.2 [facility] Comment on above: Performed By: #### L500.0140 0, L500.24774, L550.73147 ####[facility] [id number] 0 [place], [place] [address]Fz# [phone] Glucose mass conc 133 mg/dL High 70-100 [facility] [place] Comment on above: Result Comment: 70-100- Norm al Fasting; 100-125 Impaired Fasting; greaterthan 126 on more than one result- Diabetes. ADA guidelines.Results may be fa lsely elevated after the administration ofSulfapyridine.Results may be falsely depressed after the administration ofSulfasalazi ne. Performed By: #### L500.0140 0, L500.34362, L550.79895 ####[facility] [id number] [address] [place], [place] [address]Zg# [phone] Potassium molar conc 7.0 mmol/L Critically high 3.5-5.1 [facility] Comment on above: Result Comment: Slight Hemol ysis, Result may be falsely increased. CriticalResult(s) Called at: 18:00:05 on 08/31/2018 by: milady hinson and read back by: SHAMIKA MELLO Performed By: #### L500.0140 0, L500.76806, L550.71000 ####[facility] [id number] 0 [place], [place] [address]Mw# [phone] Protein mass conc 6.2 g/dL Normal 6.0-8.5 [facility] Comment on above: Performed By: #### L500.0140 0, L500.17357, L550.00424 ####[facility] [id number] 0 [place], [place] [address]Ff# [phone] SGOT (AST) 102 U/L High 8-34 [facility] Comment on above: Result Comment: Slight Hemol ysis, Result may be falsely increased.RESULTS MAY BE FAL SELY DEPRESSED AFTER THE ADMINISTRATION OFSULFASALAZINE AND/OR SULFA PYRIDINE. Performed By: #### L500.0140 0, L500.02546, L550.05564 ####[facility] [id number] [address] [place], [place] [address]Rk# [phone] Sodium molar conc 129 mmol/L Low 136-145 [facility] [place] Comment on above: Performed By: #### L500.0140 0, L500.91456, L550.48663 ####[facility] [id number] 0 [place], [place] [address]Ie# [phone] Urea nitrogen mass conc 62 mg/dL High 7-26 [facility] Comment on above: Performed By: #### L500.0140 0, L500.34620, L550.86394 ####[facility] [id number] 0 [place], [place] [address]Ss# [phone] Urea nitrogen/Creatinine mass ratio 16 mg/mg Normal 15-24 [facility] [place] Comment on above: Performed By: #### L500.0140 0, L500.35248, L550.54306 ####[facility] [id number] 0 [place], [place] [address]Fp# [phone] CRP on 08-31-2018 CRP mass conc 4.13 MG/DL High 0.00-0.32 [facility] [place] Comment on above: Performed By: #### L500.0140 0, L500.78149, L550.21937 ####[facility] [id number] 0 [place], [place] [address]En# [phone] GFR EST on 9 IF AMER 14 ML/MIN Normal [facility] [place] Comment on above: Performed By: #### L500.0140 0, L500.84629, L550.23999 ####[facility] [id number] 0 [place], [place] [address]Mz# [phone] IF non-AFR AMER 12 ML/MIN Normal [facility] [place] Comment on above: Performed By: #### L500.0140 0, L500.94035, L550.79795 ####[facility] [id number] [address] [place], [place] [address]Kl# [phone] URINE W MICROSC on 0 08-31-2018 Appearance Nom (U) Cloudy Normal CLEAR [facility] [place] Comment on above: Performed By: #### L600.0000 3 ####[facility] [id number] [place], [place] [address]Ei# [phone] Color Nom (U) Yellow Normal [facility] [place] Comment on above: Performed By: #### L600.0000 3 ####[facility] [id number] [place], [place] [address]Mu# [phone] Glucose mass conc (U) Negative Normal [facility] [place] Comment on above: Performed By: #### L600.0000 3 ####[facility] [id number] [place], [place] [address]Su# [phone] HYALINE CAST 86 /LPF High 0-[address] [facility] [place] Comment on above: Performed By: #### L600.0000 3 ####[facility] [id number] [facility] [place] [facility] [place] [address]Bc# [phone] Mucus Ql (Urine sed) TRACE Normal [facility] [place] Comment on above: Performed By: #### L600.0000 3 ####[facility] [id number] [facility] [place] [address]Rk# [phone] Protein mass conc (U) Negative Normal NEGATIVE [facility] [place] Comment on above: Performed By: #### L600.0000 3 ####[facility] [id number] [facility] [place], [place] [address]Yx# [phone] SQUAMOUS EPIS 1 EPI/HPF Normal 0-5 [facility] [place] Comment on above: Performed By: #### L600.0000 3 ####[facility] [id number] [facility] [place], [place] [address]Ml# [phone] UA BACTERIA 4+ /HPF Normal NONE [facility] [place] Comment on above: Performed By: #### L600.0000 3 ####[facility] [id number] [facility] [place], [place] [address]Nz# [phone] UA BILIRUBIN Negative Normal [facility] [place] Comment on above: Performed By: #### L600.0000 3 ####[facility] [id number] [facility] [place], [place] [address]Gi# [phone] UA BLOOD Negative Normal NEGATIVE [facility] [place] Comment on above: Performed By: #### L600.0000 3 ####[facility] [id number] [facility] [place] [place], [place] [address]Qg# [phone] UA KETONE Negative Normal [facility] [place] Comment on above: Performed By: #### L600.0000 3 ####[facility] [id number] [facility] [place], [place] [address]Gh# [phone] UA LK ESTERASE 500 Normal NEGATIVE [facility] [place] Comment on above: Performed By: #### L600.0000 3 ####[facility] [id number] [facility] [place], [place] [address]Qs# [phone] UA NITRITE Negative Normal NEGATIVE [facility] [place] Comment on above: Performed By: #### L600.0000 3 ####[facility] [id number] [facility] [place], [place] [address]Ue# [phone] UA PH 5.0 Normal [facility] [place] Comment on above: Performed By: #### L600.0000 3 ####[facility] [id number] [facility] [place], [place] [address]Zr# [phone] UA RBC 1 RBC/HPF Normal 0-3 [facility] Comment on above: Performed By: #### L600.0000 3 ####[facility] [id number] [facility] [place], [place] [address]Sp# [phone] UA SPEC GRAV 1.013 Normal 1.005-1.030 [facility] [place] Comment on above: Performed By: #### L600.0000 3 ####[facility] [id number] [facility] [place], [place] [address]Ru# [phone] UA UROBILINOGEN Negative Normal [facility] [place] Comment on above: Performed By: #### L600.0000 3 ####[facility] [id number] [facility] [place], [place] [address]Ie# [phone] UA WBC 293 WBC/HPF High 0-5 [facility] [place] Comment on above: Performed By: #### L600.0000 3 ####[facility] [id number] [facility] [place], [place] [address]Ch# [phone] UA YEAST MANY Normal NONE [facility] [place] Comment on above: Performed By: #### L600.0000 3 ####[facility] [id number] [facility] [place], [place] [address]Uj# [phone] WBC CLUMPS FEW Normal [facility] [place] Comment on above: Performed By: #### L600.0000 3 ####[facility] [id number] [place], [place] [address]Ax# [phone] NM GASTRIC EMPTYING SOLID on 07-19-2017 NM GASTRIC EMPTYING Performed at [facility] APPROVED BY: Rodolfo Azar MD EXAMINATION: NM GASTRIC EMPTYING STUDY EXAM DATE: [...] minutes). IMPRESSION: Markedly delayed solid gastric emptying. Social History Date Type Detail Facility Start: 06-29-2016 Tobacco smoking status Never smoker [facility] End: 07-23-2018 [facility] Start: 07-23-2018 Tobacco use and exposure Never used [facility] Start: 06-29-2016 Alcohol intake Current non-drinker of [facility] End: 07-23-2018 alcohol (finding) Start: 1955 Sex Assigned At Not on file [facility] Exposure to SARS-CoV-2 Not sure [facility] (event) Vital Signs Date Time Vital Sign Value Performing Clinician Facilit y 01-14-2021 Diastolic blood 62 mm[Hg] Kimmie Green MD [facility] 23: pressure Work Phone: [place] Phone: 01-14-2021 Heart rate 85 /min Kimmie Green MD [facility] 23: Work Phone: [place] Phone: 01-14-2021 Respiratory rate 16 /min Kimmie Green MD [facility] 23: Work Phone: [place] Phone: 01-14-2021 SaO2% (BldA) [Mass 100 % Kimmie Green MD [facility] 23: fraction] Work Phone: [place] Phone: 01-14-2021 Systolic blood 152 mm[Hg] Kimmie Green MD [facility] 23: pressure Work Phone: [place] Phone: 01-14-2021 Body height 165.1 cm Kimmie Green MD [facility] 19: Work Phone: [place] Phone: 01-14-2021 Body mass index (BMI) 53.25 kg/m2 Kimmie Green MD [facility] 19:040 [Ratio] Work Phone: [place] Phone: 01-14-2021 Body temperature 99 [degF] Kimmie Green MD [facility] 19:140400 Work Phone: [place] Phone: 01-14-2021 Body weight 145.15 kg Kimmie Green MD [facility] 19:140400 Work Phone: W [place] Phone: Clinical Notes 02-26-2020 to 01-10-2021 Note Date & Type Note Facility 01-10-2021 Note HNO ID: [id number] [facility] Author: Dara Stack RN Service: Care Management Author Type: Registered Nurse Type: Care Mgt Progress Note Filed: 01/10/2021 2:12 PM Note Text: CARE MANAGEMENT DISCHARGE NOTE SERVICE DATE: 01/10/2021 SERVICE TIME: 1400 LOS: 15 days Admission Date: 12/26/2020 DISCHARGE ARRANGEMENT (list agency and p dorian number) Discharge Arrangement: snf f acility Was an expedited discharge program used? : No Provider Name: [facility] CAREGIVER ASSESSMENT: HANDOFF COMMUNICATION: Handoff to: Primary Care Physician Primary Care Physician Name/Phone: Jomar Parks TRANSPORTATION ARRANGEMENTS: Transportation Arrangements: Ambulance/A [employer] and Phone #:: [facility] ( [facility] ) [phone] / [phone] Date of Trip: 01/10/21 Time of Trip: 1400 Type of Service: BLS Non-emergency Is Patient Medicaid Pending?: No Discussion of financial coverage occurre d with: Family (Linda Mike-sister) General Freight Agent Location: [facility] Destination: [facility] Financial Care Management Responsibility : None ADDITIONAL CONTACT RESOURCES: Linda Correia [phone] Telephoned pt's sister Linda and informe d her pt will be discharged today by cot to SNF at 400pm. Discussed transp ortation fee to facility, she is aware of possible cost. Notified ALMA Guerrero of discharge time. SIGNATURE: Dara Stack RN PATIENT NAME: Soni Cramer DATE: January 10, 2021 TIME: 2:10 PM PAGER/CONTACT #: [phone] 01-10-2021 Note HNO ID: [id number] [facility] Author: Dara Stack RN Service: Care Management Author Type: Registered Nurse Type: Care Mgt Initial Assessment Filed: 01/10/2021 11:50 AM Note Text: CARE MANAGEMENT PROGRESS NOTE SERVICE DATE: 01/10/2021 SERVICE TIME: 1130 LOS: 15 days IMM Follow Up Copy Given: Yes Copy given to:: Patient Method: In Person . SIGNATURE: Dara Stack RN PATIENT NAME: Soni Cramer DATE: January 10, 2021 TIME: 11:49 AM PAGER/CONTACT #: [phone] 01-09-2021 Note HNO ID: [id number] [facility] Author: Flavio Chaves MD Service: Hospital Medicine Author Type: Physician Type: Progress Notes Filed: 01/10/2021 10:18 AM Note Text: DEPARTMENT OF HOSPITAL MEDICINE PROGRESS NOTE SERVICE DATE: 01/09/2021 SERVICE TIME: 4:45 PM Hospital Medicine/Primary Attending: Virgilio Chaves MD NIGHT AND WEEKEND COVERAGE: After 7pm please page [phone] CHIEF COMPLAINT: Follow-up for toxic enc ephalopathy. Gradually improving. SUBJECTIVE: Patient seen and examined. N ot much of an appetite. Denies any other complaints. OBJECTIVE: PHYSICAL EXAM: BP 151/70 Pulse 76 Te mp (Src) 97.7 (Axillary) Resp 20 Ht 5' 5.984[per previously height doc umentation per review of EMR[ (1.68m) Wt 313 lb 4.8 oz (142.1kg) S pO2 97% BMI 50.59 kg/(m2). O2 Therapy: Nasal Cannula, Liters: 3 General - AANDOx3, morbidly obese, weak appearing, mildly dyspneic. CV - RRR S1 S2, No M/R/G RESP - CTA B/L No wheezes, ronchi, rales ABD -obese and moves with respiration. EXT - no gross joint deformity, no clubb ing, cyanosis, edema NEURO - CN II-XII grossly intact, functi onal paraparesis. MEDICATIONS: Current Facility-Administered Medication s Medication Dose Route Frequency aspirin, enteric coated 81 mg tab(s) 81 mg ORAL DAILY sodium chloride 0.9 % (flush) 2-10 mL (B D POSIFLUSH) 2-10 mL INTRAVENOUS q 12 H heparin 5,000 Units injection 5,000 Unit s SUBCUTANEOUS q 12 H sodium chloride 0.9 % (flush) 3-5 mL (BD POSIFLUSH) 3-5 mL INTRAVENOUS q 12 H LORazepam 1 mg injection (ATIVAN) 1 mg I NTRAVENOUS q 5 MIN PRN dextrose 40 % 15 g 15 g ORAL PRN Or glucagon 1 mg injection 1 mg INTRAMUSCUL AR PRN Or dextrose 50% in water 25 mL syringe 12.5 g INTRAVENOUS PRN hydrALAZINE 10 mg injection (APRESOLINE) 10 mg INTRAVENOUS q 6 H PRN pill senior trainer (patient-specific) 1 Each M iscell. (Med.Supl.;Non-Drugs) PRN ondansetron (PF) 4 mg injection (ZOFRAN) 4 mg INTRAVENOUS q 6 H PRN sodium chloride 0.65 % 2 Vida (AYR, OCE AN) 2 Vida EACH NOSTRIL PRN ipratropium-albuterol 3 mL nebulizer jan ution (DUONEB) 3 mL INHALATION QID acetaminophen 650 mg tab(s) (TYLENOL) 65 0 mg ORAL q 4 H PRN insulin regular human injection (short a cting) (NovoLIN R,HumuLIN R) SUBCUTANEOUS w MEALS AND HS ipratropium-albuterol 3 mL nebulizer jan ution (DUONEB) 3 mL INHALATION q 6 H PRN insulin glargine 26 Units pen (long acti ng) (LANTUS SOLOSTAR, BASAGLAR KWIKPEN) 26 Units SUBCUTANEOUS BID 8A/BE DTIME insulin regular human 10 Units injection (short acting) (NovoLIN R,HumuLIN R) 10 Units SUBCUTANEOUS w MEREDITH LS mirtazapine 30 mg (REMERON) 30 mg ORAL A T BEDTIME amLODIPine 5 mg tab(s) (NORVASC) 5 mg OR AL DAILY DATA: Diagnostic tests reviewed for today's vi sit: CBC: No results for input(s): WBC, RBC, HB, HCT, PLT, MCV, MCH, MPV, RDW in the last 24 hours. Coags: No results for input(s): PT, INR, APTT in the last 24 hours. BMP: Recent Labs 01/08/21 0440 NA 133* K 4.5 CHLOR 103 CO2 21* BUN 48* CREAT 1.87* GLUC 134* CMP: Recent Labs 01/08/21 0440 NA 133* K 4.5 CHLOR 103 CO2 21* BUN 48* CREAT 1.87* GLUC 134* CA 9.3 ANION 9 Cardiac Enzymes: No results for input(s) : CK, MB, CKMB, TROPT in the last 24 hours. Liver Function, Amylase, Lipase: No resu lts for input(s): TPROT, ALB, ALT, AST, ALKPHOS, TBILI, AMYLASE, LIPASE, LA CTATE in the last 24 hours. MG/PHOS: No results for input(s): MG, P in the last 24 hours. Renal Panel: Recent Labs 01/08/21 0440 CREAT 1.87* BUN 48* GLUC 134* CA 9.3 CHLOR 103 K 4.5 CO2 21* NA 133* Heme: No results for input(s): RETICP, A BSRETIC, LD, DIANE, FE, TIBC, TRANSFERSAT in the last 24 hours. No results found for: UALBCR Assessment/Plan 1. Acute toxic encephalopathy. Secondary to PRESS. 2. Acute kidney injury. Showing signs of improvement. Creatinine improved from 2.8 to 1.8. Possible ische ricky injury or AIN from antibiotics. Urinalysis negative for eos inophiluria. Continue to avoid nephrotoxic's. 3. Multiple decubitus ulcers. Appreciate input and assistance from wound care. 4. Morbid obesity. Lifestyle modificatio ns as able. 5. Type 2 diabetes. Insulin-dependent. E ndocrinology on consult and following. Managing insulin as well. 6. Functional decline and severe debilit y. Will need rehabilitation. Still searching for an accepting facilit y. Process to be started tomorrow. Appreciate input from PT and O T. 7. Acute hypoxic respiratory failure wit h new need for supplemental oxygen. Possibly secondary to pulmonary edema. IVFs discontinued and will continue to observe and wean as able. VTE Prophylaxis: Lovenox 40mg Sub Q Brittani y Disposition: Extended Care Facility Plan of care discussed with: Patient SIGNATURE: Flavio Chaves MD PATIENT N JENIFER: Soni Cramer DATE: January 09, 2021 TIME: 4:45 PM PAGER/CONTACT #: Ward [phone] 01-09-2021 Note HNO ID: [id number] [facility] Author: Dara Stack RN Service: Care Management Author Type: Registered Nurse Type: Care Mgt Progress Note Filed: 01/09/2021 9:48 AM Note Text: CARE MANAGEMENT PROGRESS NOTE SERVICE DATE: 01/09/2021 SERVICE TIME: 944 LOS: 14 days . Telephoned and spoke with pt's sister Guille huff will send updates to her 1st and 2nd choice again to see if either fa cility has beds available. Will start precert if they are able to accept pt today. SIGNATURE: Dara Stack RN PATIENT NAME: Soni Cramer DATE: January 09, 2021 TIME: 9:46 AM PAGER/CONTACT #: [phone] 01-08-2021 Note HNO ID: [id number] [facility] Author: Flavio Chaves MD Service: Hospital Medicine Author Type: Physician Type: Progress Notes Filed: 01/08/2021 1:48 PM Note Text: DEPARTMENT OF HOSPITAL MEDICINE PROGRESS NOTE SERVICE DATE: 01/08/2021 SERVICE TIME: 1:45 PM Hospital Medicine/Primary Attending: Virgilio Chaves MD NIGHT AND WEEKEND COVERAGE: After 7pm please page [phone] CHIEF COMPLAINT: Follow-up for toxic enc ephalopathy. Gradually improving. SUBJECTIVE: Patient seen and examined. N ot much of an appetite. Denies any other complaints. OBJECTIVE: PHYSICAL EXAM: BP 151/70 Pulse 76 Te mp (Src) 97.7 (Axillary) Resp 20 Ht 5' 5.984[per previously height doc umentation per review of EMR[ (1.68m) Wt 313 lb 4.8 oz (142.1kg) S pO2 97% BMI 50.59 kg/(m2). O2 Therapy: Nasal Cannula, Liters: 3 General - AANDOx3, morbidly obese, weak appearing, mildly dyspneic. CV - RRR S1 S2, No M/R/G RESP - CTA B/L No wheezes, ronchi, rales ABD -obese and moves with respiration. EXT - no gross joint deformity, no clubb ing, cyanosis, edema NEURO - CN II-XII grossly intact, functi onal paraparesis. MEDICATIONS: Current Facility-Administered Medication s Medication Dose Route Frequency - aspirin, enteric coated 81 mg tab(s) 8 1 mg ORAL DAILY - sodium chloride 0.9 % (flush) 2-10 mL (BD POSIFLUSH) 2-10 mL INTRAVENOUS q 12 H - heparin 5,000 Units injection 5,000 Un its SUBCUTANEOUS q 12 H - sodium chloride 0.9 % (flush) 3-5 mL ( BD POSIFLUSH) 3-5 mL INTRAVENOUS q 12 H - LORazepam 1 mg injection (ATIVAN) 1 mg INTRAVENOUS q 5 MIN PRN - dextrose 40 % 15 g 15 g ORAL PRN Or - glucagon 1 mg injection 1 mg INTRAMUSC ULAR PRN Or - dextrose 50% in water 25 mL syringe 12 .5 g INTRAVENOUS PRN - hydrALAZINE 10 mg injection (APRESOLIN E) 10 mg INTRAVENOUS q 6 H PRN - pill senior trainer (patient-specific) 1 Each Miscell. (Med.Supl.;Non-Drugs) PRN - ondansetron (PF) 4 mg injection (ZOFRA N) 4 mg INTRAVENOUS q 6 H PRN - sodium chloride 0.65 % 2 Vida (AYR, O CEAN) 2 Vida EACH NOSTRIL PRN - ipratropium-albuterol 3 mL nebulizer s olution (DUONEB) 3 mL INHALATION QID - acetaminophen 650 mg tab(s) (TYLENOL) 650 mg ORAL q 4 H PRN - insulin regular human injection (short acting) (NovoLIN R,HumuLIN R) SUBCUTANEOUS w MEALS AND HS - ipratropium-albuterol 3 mL nebulizer s olution (DUONEB) 3 mL INHALATION q 6 H PRN - insulin glargine 26 Units pen (long ac ting) (LANTUS SOLOSTAR, BASAGLAR KWIKPEN) 26 Units SUBCUTANEOUS BID 8A/BE DTIME - insulin regular human 10 Units injecti on (short acting) (NovoLIN R,HumuLIN R) 10 Units SUBCUTANEOUS w MEREDITH LS - mirtazapine 30 mg (REMERON) 30 mg ORAL AT BEDTIME - amLODIPine 5 mg tab(s) (NORVASC) 5 mg ORAL DAILY DATA: Diagnostic tests reviewed for today's vi sit: CBC: No results for input(s): WBC, RBC, HB, HCT, PLT, MCV, MCH, MPV, RDW in the last 24 hours. Coags: No results for input(s): PT, INR, APTT in the last 24 hours. BMP: Recent Labs 01/08/21 0440 NA 133* K 4.5 CHLOR 103 CO2 21* BUN 48* CREAT 1.87* GLUC 134* CMP: Recent Labs 01/08/21 0440 NA 133* K 4.5 CHLOR 103 CO2 21* BUN 48* CREAT 1.87* GLUC 134* CA 9.3 ANION 9 Cardiac Enzymes: No results for input(s) : CK, MB, CKMB, TROPT in the last 24 hours. Liver Function, Amylase, Lipase: No resu lts for input(s): TPROT, ALB, ALT, AST, ALKPHOS, TBILI, AMYLASE, LIPASE, LA CTATE in the last 24 hours. MG/PHOS: No results for input(s): MG, P in the last 24 hours. Renal Panel: Recent Labs 01/08/21 0440 CREAT 1.87* BUN 48* GLUC 134* CA 9.3 CHLOR 103 K 4.5 CO2 21* NA 133* Heme: No results for input(s): RETICP, A BSRETIC, LD, DIANE, FE, TIBC, TRANSFERSAT in the last 24 hours. No results found for: UALBCR Assessment/Plan 1. ?Acute?toxic?encephalopathy. ?Seconda ry to PRESS. ? 2. ?Acute kidney injury.? Showing signs of improvement. Creatinine improved from 2.8 to 1.8. Possible ische ricky injury or AIN from?antibiotics. Urinalysis negative fo r eosinophiluria. ?Continue to avoid nephrotoxic's. ? 3. ?Multiple decubitus ulcers. ?Apprecia te input and assistance from wound care. ? 4. ?Morbid obesity. ?Lifestyle modificat ions as able. ? 5. ?Type 2 diabetes. ?Insulin-dependent. ?Endocrinology on consult and following. ?Managing insulin as well. 6. Functional decline and severe debilit y. Will need rehabilitation. Still searching for an accepting facilit y. Process to be started tomorrow. Appreciate input from PT and O T. VTE Prophylaxis: Lovenox 40mg Sub Q Brittani y Disposition: Extended Care Facility Plan of care discussed with: Patient SIGNATURE: Flavio Chaves MD PATIENT N JENIFER: Soni Cramer DATE: January 08, 2021 TIME: 1:45 PM PAGER/CONTACT #: Ward Blunt mini 01-07-2021 Note HNO ID: [id number] [facility] Author: Flavio Chaves MD Service: Hospital Medicine Author Type: Physician Type: Progress Notes Filed: 01/07/2021 4:17 PM Note Text: DEPARTMENT OF HOSPITAL MEDICINE PROGRESS NOTE ? SERVICE DATE: 01/07/2021 SERVICE TIME: 2:06 PM ? Hospital Medicine/Primary Attending: Mandy Chaves MD ? NIGHT AND WEEKEND COVERAGE: After 7pm please page [phone] ? ? CHIEF COMPLAINT: Follow-up for acute encephalopathy. ? SUBJECTIVE: Discussed with bedside shayne se. Noted low blood pressure readings. Antihypertensives held. For bl ood glucose control. Oral intake not the best. ? OBJECTIVE: PHYSICAL EXAM: BP 140/63 Pulse 78 Te mp (Src) 99.7 (Oral) Resp 18 Ht 5' 5.984[per previously height docum entation per review of EMR[ (1.68m) Wt 313 lb 4.8 oz (142.1kg) S pO2 94% BMI 50.59 kg/(m2). O2 Therapy: Nasal Cannula, Liters: 3 ? MEDICATIONS: Current Facility-Administered Medication s Medication Dose Route Frequency - aspirin, enteric coated 81 mg tab(s) 8 1 mg ORAL DAILY - sodium chloride 0.9 % (flush) 2-10 mL (BD POSIFLUSH) 2-10 mL INTRAVENOUS q 12 H - heparin 5,000 Units injection 5,000 Un its SUBCUTANEOUS q 12 H - sodium chloride 0.9 % (flush) 3-5 mL ( BD POSIFLUSH) 3-5 mL INTRAVENOUS q 12 H - LORazepam 1 mg injection (ATIVAN) 1 mg INTRAVENOUS q 5 MIN PRN - dextrose 40 % 15 g 15 g ORAL PRN ? Or - glucagon 1 mg injection 1 mg INTRAMUSC ULAR PRN ? Or - dextrose 50% in water 25 mL syringe 12 .5 g INTRAVENOUS PRN - hydrALAZINE 10 mg injection (APRESOLIN E) 10 mg INTRAVENOUS q 6 H PRN - hydrALAZINE 25 mg tab(s) (APRESOLINE) 25 mg NASOGASTRIC q 8 H - carvedilol 12.5 mg tab(s) (COREG) 12.5 mg NASOGASTRIC BID w MEALS - pill senior trainer (patient-specific) 1 Each Miscell. (Med.Supl.;Non-Drugs) PRN - ondansetron (PF) 4 mg injection (ZOFRA N) 4 mg INTRAVENOUS q 6 H PRN - sodium chloride 0.65 % 2 Vida (AYR, O CEAN) 2 Vida EACH NOSTRIL PRN - ipratropium-albuterol 3 mL nebulizer s olution (DUONEB) 3 mL INHALATION QID - acetaminophen 650 mg tab(s) (TYLENOL) 650 mg ORAL q 4 H PRN - insulin regular human injection (short acting) (NovoLIN R,HumuLIN R) SUBCUTANEOUS w MEALS AND HS - ipratropium-albuterol 3 mL nebulizer s olution (DUONEB) 3 mL INHALATION q 6 H PRN - insulin glargine 26 Units pen (long ac ting) (LANTUS SOLOSTAR, BASAGLAR KWIKPEN) 26 Units SUBCUTANEOUS BID 8A/BE DTIME - insulin regular human 10 Units injecti on (short acting) (NovoLIN R,HumuLIN R) 10 Units SUBCUTANEOUS w MEREDITH LS - mirtazapine 15 mg (REMERON) 15 mg ORAL AT BEDTIME ? ? DATA: Diagnostic tests reviewed for today's vi sit: CBC: Recent Labs 01/06/21355 WBC 15.42* RBC 3.42* HB 9.4* HCT 28.9* PLT 261 MCV 84.5 MCH 27.5 MPV 10.0 ? Coags: No results for input(s): PT, IN R, APTT in the last 24 hours. BMP: Recent Labs 01/06/216 NA 134* K 4.8 CHLOR 102 CO2 20* BUN 49* CREAT 2.62* GLUC 167* ? CMP: Recent Labs 01/06/216 NA 134* K 4.8 CHLOR 102 CO2 20* BUN 49* CREAT 2.62* GLUC 167* CA 9.1 ANION 12 ? Cardiac Enzymes: No results for input( s): CK, MB, CKMB, TROPT in the last 24 hours. Liver Function, Amylase, Lipase: No resu lts for input(s): TPROT, ALB, ALT, AST, ALKPHOS, TBILI, AMYLASE, LIPASE, LA CTATE in the last 24 hours. MG/PHOS: No results for input(s): MG, P in the last 24 hours. Renal Panel: Recent Labs 01/06/21 0356 CREAT 2.62* BUN 49* GLUC 167* CA 9.1 CHLOR 102 K 4.8 CO2 20* NA 134* ? Heme: No results for input(s): RETICP, ABSRETIC, LD, DIANE, FE, TIBC, TRANSFERSAT in the last 24 hours. No results found for: UALBCR ? ? ? Assessment/Plan ? 1. ?Acute toxic encephalopathy. ?Secon siri to PRESS. ? 2. ?Acute kidney injury.?Has not impro chaya. Possible ischemic injury or AIN from antibiotics.. Will check urine eosi nophils. Continue to avoid nephrotoxic's. ? 3. ?Multiple decubitus ulcers. ?Apprec iate input and assistance from wound care. ? 4. Morbid obesity. Lifestyle modificat ions as able. ? 5. Type 2 diabetes. Insulin-dependent. Endocrinology on consult and following. Managing insulin as well. ? VTE Prophylaxis: Patient is al ready anti-coagulated. ? Disposition: Extended Care Facility ? Plan of care discussed with: Provider, RN, Patient ? SIGNATURE: Flavio Chaves MD PATIENT NAME: Soni Cramer DATE: January 07, 2021 TIME: 2:06 PM PAGER/CONTACT #: Ward morse ? ? 01-06-2021 Note HNO ID: [id number] [facility] Author: Flavio Chaves MD Service: Hospital Medicine Author Type: Physician Type: Progress Notes Filed: 01/06/2021 7:09 PM Note Text: DEPARTMENT OF HOSPITAL MEDICINE PROGRESS NOTE SERVICE DATE: 01/06/2021 SERVICE TIME: 7:06 PM Hospital Medicine/Primary Attending: Virgilio Chaves MD NIGHT AND WEEKEND COVERAGE: After 7pm please page [phone] CHIEF COMPLAINT: Follow-up for acute enc ephalopathy. SUBJECTIVE: Patient seen and examined. D iscussed with bedside nurse. OBJECTIVE: PHYSICAL EXAM: BP 140/63 Pulse 78 Te mp (Src) 99.7 (Oral) Resp 18 Ht 5' 5.984[per previously height docum entation per review of EMR[ (1.68m) Wt 313 lb 4.8 oz (142.1kg) S pO2 94% BMI 50.59 kg/(m2). O2 Therapy: Nasal Cannula, Liters: 3 ? General - AANDOx3,?weak appearing, acute ly ill-appearing, morbidly obese, chronically ill-appearing as well. CV - RRR S1 S2, No M/R/G RESP - CTA B/L ?No wheezes, ronchi, rale s ABD - soft, NT, ND +BS EXT - no gross joint deformity, no clubb ing, cyanosis, edema NEURO - CN II-XII grossly intact, no foc al deficits MEDICATIONS: Current Facility-Administered Medication s Medication Dose Route Frequency - aspirin, enteric coated 81 mg tab(s) 8 1 mg ORAL DAILY - sodium chloride 0.9 % (flush) 2-10 mL (BD POSIFLUSH) 2-10 mL INTRAVENOUS q 12 H - heparin 5,000 Units injection 5,000 Un its SUBCUTANEOUS q 12 H - sodium chloride 0.9 % (flush) 3-5 mL ( BD POSIFLUSH) 3-5 mL INTRAVENOUS q 12 H - LORazepam 1 mg injection (ATIVAN) 1 mg INTRAVENOUS q 5 MIN PRN - dextrose 40 % 15 g 15 g ORAL PRN Or - glucagon 1 mg injection 1 mg INTRAMUSC ULAR PRN Or - dextrose 50% in water 25 mL syringe 12 .5 g INTRAVENOUS PRN - hydrALAZINE 10 mg injection (APRESOLIN E) 10 mg INTRAVENOUS q 6 H PRN - hydrALAZINE 25 mg tab(s) (APRESOLINE) 25 mg NASOGASTRIC q 8 H - carvedilol 12.5 mg tab(s) (COREG) 12.5 mg NASOGASTRIC BID w MEALS - pill senior trainer (patient-specific) 1 Each Miscell. (Med.Supl.;Non-Drugs) PRN - ondansetron (PF) 4 mg injection (ZOFRA N) 4 mg INTRAVENOUS q 6 H PRN - sodium chloride 0.65 % 2 Vida (AYR, O CEAN) 2 Vida EACH NOSTRIL PRN - ipratropium-albuterol 3 mL nebulizer s olution (DUONEB) 3 mL INHALATION QID - acetaminophen 650 mg tab(s) (TYLENOL) 650 mg ORAL q 4 H PRN - insulin regular human injection (short acting) (NovoLIN R,HumuLIN R) SUBCUTANEOUS w MEALS AND HS - ipratropium-albuterol 3 mL nebulizer s olution (DUONEB) 3 mL INHALATION q 6 H PRN - insulin glargine 26 Units pen (long ac ting) (LANTUS SOLOSTAR, BASAGLAR KWIKPEN) 26 Units SUBCUTANEOUS BID 8A/BE DTIME - insulin regular human 10 Units injecti on (short acting) (NovoLIN R,HumuLIN R) 10 Units SUBCUTANEOUS w MEREDITH LS - mirtazapine 15 mg (REMERON) 15 mg ORAL AT BEDTIME DATA: Diagnostic tests reviewed for today's vi sit: CBC: Recent Labs 01/06/21355 WBC 15.42* RBC 3.42* HB 9.4* HCT 28.9* PLT 261 MCV 84.5 MCH 27.5 MPV 10.0 Coags: No results for input(s): PT, INR, APTT in the last 24 hours. BMP: Recent Labs 01/06/21355 NA 134* K 4.8 CHLOR 102 CO2 20* BUN 49* CREAT 2.62* GLUC 167* CMP: Recent Labs 01/06/21355 NA 134* K 4.8 CHLOR 102 CO2 20* BUN 49* CREAT 2.62* GLUC 167* CA 9.1 ANION 12 Cardiac Enzymes: No results for input(s) : CK, MB, CKMB, TROPT in the last 24 hours. Liver Function, Amylase, Lipase: No resu lts for input(s): TPROT, ALB, ALT, AST, ALKPHOS, TBILI, AMYLASE, LIPASE, LA CTATE in the last 24 hours. MG/PHOS: No results for input(s): MG, P in the last 24 hours. Renal Panel: Recent Labs 01/06/21355 CREAT 2.62* BUN 49* GLUC 167* CA 9.1 CHLOR 102 K 4.8 CO2 20* NA 134* Heme: No results for input(s): RETICP, A BSRETIC, LD, DIANE, FE, TIBC, TRANSFERSAT in the last 24 hours. No results found for: UALBCR Assessment/Plan ? 1. ?Acute toxic encephalopathy. ?Seconda ry to PRESS. ? 2. ?Acute kidney injury. Has not improve d. Possible ischemic injury or AIN from antibiotics.. Will check urine eosi nophils. Continue to avoid nephrotoxic's. ? 3. ?Multiple decubitus ulcers. ?Apprecia te input and assistance from wound care. 4. Morbid obesity. Lifestyle modificatio ns as able. 5. Type 2 diabetes. Insulin-dependent. E ndocrinology on consult and following. Managing insulin as well. ? ? VTE Prophylaxis: Patient is already anti -coagulated. Disposition: Extended Care Facility Plan of care discussed with: Provider, R N, Patient SIGNATURE: Flavio Chaves MD PATIENT N JENIFER: Soni Cramer DATE: January 06, 2021 TIME: 7:06 PM PAGER/CONTACT #: Ward morse 01-06-2021 Note HNO ID: [id number] [facility] Author: Dara Stack RN Service: Care Management Author Type: Registered Nurse Type: Care Mgt Progress Note Filed: 01/06/2021 4:10 PM Note Text: CARE MANAGEMENT PROGRESS NOTE SERVICE DATE: 01/06/2021 SERVICE TIME: 1605 LOS: 11 days . Chart reviewed, [facility] is reviewing clinical and has not made a decision regarding in acceptance. Pt states she has had both her Moderna vaccines. Requested PT/OT see pt on Saturday to start precert on Saturday if pt is medically ready. SIGNATURE: Dara Stack RN PATIENT NAME: Soni Cramer DATE: January 06, 2021 TIME: 4:05 PM PAGER/CONTACT #: [phone] 01-05-2021 Note HNO ID: [id number] [facility] Author: Flavio Chaves MD Service: Hospital Medicine Author Type: Physician Type: Progress Notes Filed: 01/05/2021 4:18 PM Note Text: DEPARTMENT OF HOSPITAL MEDICINE PROGRESS NOTE SERVICE DATE: 01/05/2021 SERVICE TIME: 4:17 PM Hospital Medicine/Primary Attending: Virgilio Chaves MD NIGHT AND WEEKEND COVERAGE: After 7pm please page [phone] CHIEF COMPLAINT: Follow-up for acute enc ephalopathy SUBJECTIVE: Patient seen and examined. O ral intake is still quite poor. OBJECTIVE: PHYSICAL EXAM: BP 130/53 Pulse 74 Te mp (Src) 99 (Axillary) Resp 18 Ht 5' 5.984[per previously height docum entation per review of EMR[ (1.68m) Wt 313 lb 4.8 oz (142.1kg) S pO2 97% BMI 50.59 kg/(m2). O2 Therapy: Nasal Cannula, Liters: 6 General - AANDOx3, weak appearing, acute ly ill-appearing, morbidly obese, chronically ill-appearing as well. CV - RRR S1 S2, No M/R/G RESP - CTA B/L No wheezes, ronchi, rales ABD - soft, NT, ND +BS EXT - no gross joint deformity, no clubb ing, cyanosis, edema NEURO - CN II-XII grossly intact, no foc al deficits MEDICATIONS: Current Facility-Administered Medication s Medication Dose Route Frequency - aspirin, enteric coated 81 mg tab(s) 8 1 mg ORAL DAILY - sodium chloride 0.9 % (flush) 2-10 mL (BD POSIFLUSH) 2-10 mL INTRAVENOUS q 12 H - heparin 5,000 Units injection 5,000 Un its SUBCUTANEOUS q 12 H - sodium chloride 0.9 % (flush) 3-5 mL ( BD POSIFLUSH) 3-5 mL INTRAVENOUS q 12 H - LORazepam 1 mg injection (ATIVAN) 1 mg INTRAVENOUS q 5 MIN PRN - dextrose 40 % 15 g 15 g ORAL PRN Or - glucagon 1 mg injection 1 mg INTRAMUSC ULAR PRN Or - dextrose 50% in water 25 mL syringe 12 .5 g INTRAVENOUS PRN - hydrALAZINE 10 mg injection (APRESOLIN E) 10 mg INTRAVENOUS q 6 H PRN - miconazole 2 % 1 application topical p owder (LOTRIMIN AF, DESENEX) 1 application TOPICAL BID - hydrALAZINE 25 mg tab(s) (APRESOLINE) 25 mg NASOGASTRIC q 8 H - carvedilol 12.5 mg tab(s) (COREG) 12.5 mg NASOGASTRIC BID w MEALS - pill senior trainer (patient-specific) 1 Each Miscell. (Med.Supl.;Non-Drugs) PRN - ondansetron (PF) 4 mg injection (ZOFRA N) 4 mg INTRAVENOUS q 6 H PRN - sodium chloride 0.65 % 2 Vida (AYR, O CEAN) 2 Vida EACH NOSTRIL PRN - ipratropium-albuterol 3 mL nebulizer s olution (DUONEB) 3 mL INHALATION QID - acetaminophen 650 mg tab(s) (TYLENOL) 650 mg ORAL q 4 H PRN - insulin regular human injection (short acting) (NovoLIN R,HumuLIN R) SUBCUTANEOUS w MEALS AND HS - ipratropium-albuterol 3 mL nebulizer s olution (DUONEB) 3 mL INHALATION q 6 H PRN - cefTRIAXone 1 g in D5W 100 mL MB+ (CATRACHITO EPHIN) 1 g INTRAVENOUS q 24 H - NaCl 0.9% iv infusion 100 mL/hr INTRAV ENOUS CONTINUOUS - insulin glargine 26 Units pen (long ac ting) (LANTUS SOLOSTAR, BASAGLAR KWIKPEN) 26 Units SUBCUTANEOUS BID 8A/BE DTIME - insulin regular human 10 Units injecti on (short acting) (NovoLIN R,HumuLIN R) 10 Units SUBCUTANEOUS w MEERDITH LS - mirtazapine 15 mg (REMERON) 15 mg ORAL AT BEDTIME DATA: Diagnostic tests reviewed for today's vi sit: CBC: No results for input(s): WBC, RBC, HB, HCT, PLT, MCV, MCH, MPV, RDW in the last 24 hours. Coags: No results for input(s): PT, INR, APTT in the last 24 hours. BMP: Recent Labs 01/05/21 1023 NA 128* K 4.1 CHLOR 100 CO2 19* BUN 43* CREAT 2.57* GLUC 147* CMP: Recent Labs 01/05/21 1023 NA 128* K 4.1 CHLOR 100 CO2 19* BUN 43* CREAT 2.57* GLUC 147* CA 7.9* ANION 9 Cardiac Enzymes: No results for input(s) : CK, MB, CKMB, TROPT in the last 24 hours. Liver Function, Amylase, Lipase: No resu lts for input(s): TPROT, ALB, ALT, AST, ALKPHOS, TBILI, AMYLASE, LIPASE, LA CTATE in the last 24 hours. MG/PHOS: No results for input(s): MG, P in the last 24 hours. Renal Panel: Recent Labs 01/05/21 1023 CREAT 2.57* BUN 43* GLUC 147* CA 7.9* CHLOR 100 K 4.1 CO2 19* NA 128* Heme: No results for input(s): RETICP, A BSRETIC, LD, DIANE, FE, TIBC, TRANSFERSAT in the last 24 hours. No results found for: UALBCR Assessment/Plan 1. Acute encephalopathy. Secondary to [place] ESS. Appears to be improving. ? 2. Acute kidney injury. Only minimal imp rovement over the last 24 hours. Will continue to rehydrate with n ormal saline. Appears to be prerenal. ? 3. Multiple decubitus ulcers. Appreciate input and assistance from wound care. ? ? VTE Prophylaxis: Patient is already anti -coagulated. Disposition: To be determined Plan of care discussed with: Provider, R N, Patient SIGNATURE: Flavio Chaves MD PATIENT N JENIFER: Soni Cramer DATE: January 05, 2021 TIME: 4:17 PM PAGER/CONTACT #: Sound rig 01-05-2021 Note HNO ID: [id number] [facility] Author: Dara Stack RN Service: Care Management Author Type: Registered Nurse Type: Care Mgt Progress Note Filed: 01/05/2021 3:02 PM Note Text: CARE MANAGEMENT PROGRESS NOTE SERVICE DATE: 01/05/2021 SERVICE TIME: 1445 LOS: 10 days . Telephoned and spoke with pt's sister Guille Mike and discussed SNF choices. She would like re ferrals placed to [facility] in [facility] and [facility]. SIGNATURE: Dara Stack RN PATIENT NAME: Soni Cramer DATE: January 05, 2021 TIME: 2:46 PM PAGER/CONTACT #: [phone] 01-04-2021 Note HNO ID: [id number] [facility] Author: Flavio Chaves MD Service: Hospital Medicine Author Type: Physician Type: Progress Notes Filed: 01/05/2021 9:18 AM Note Text: DEPARTMENT OF HOSPITAL MEDICINE PROGRESS NOTE SERVICE DATE: 01/04/2021 SERVICE TIME: 6:30 PM Hospital Medicine/Primary Attending: Virgilio Chaves MD NIGHT AND WEEKEND COVERAGE: After 7pm please page [phone] CHIEF COMPLAINT: Follow-up for acute enc ephalopathy secondary to PRESS SUBJECTIVE: Patient seen and examined. O verall better. OBJECTIVE: PHYSICAL EXAM: BP 136/56 Pulse 81 Te mp (Src) 99 (Axillary) Resp 20 Ht 5' 5.984[per previously height docum entation per review of EMR[ (1.68m) Wt 313 lb 4.8 oz (142.1kg) S pO2 93% BMI 50.59 kg/(m2). O2 Therapy: Nasal Cannula, Liters: 3 General - AANDOx3, weak appearing, acute ly ill-appearing, CV - RRR S1 S2, No M/R/G RESP - CTA B/L No wheezes, ronchi, rales ABD - soft, NT, ND +BS EXT - no gross joint deformity, no clubb ing, cyanosis, edema NEURO - CN II-XII grossly intact, no foc al deficits MEDICATIONS: Current Facility-Administered Medication s Medication Dose Route Frequency - aspirin, enteric coated 81 mg tab(s) 8 1 mg ORAL DAILY - sodium chloride 0.9 % (flush) 2-10 mL (BD POSIFLUSH) 2-10 mL INTRAVENOUS q 12 H - heparin 5,000 Units injection 5,000 Un its SUBCUTANEOUS q 12 H - sodium chloride 0.9 % (flush) 3-5 mL ( BD POSIFLUSH) 3-5 mL INTRAVENOUS q 12 H - LORazepam 1 mg injection (ATIVAN) 1 mg INTRAVENOUS q 5 MIN PRN - dextrose 40 % 15 g 15 g ORAL PRN Or - glucagon 1 mg injection 1 mg INTRAMUSC ULAR PRN Or - dextrose 50% in water 25 mL syringe 12 .5 g INTRAVENOUS PRN - hydrALAZINE 10 mg injection (APRESOLIN E) 10 mg INTRAVENOUS q 6 H PRN - miconazole 2 % 1 application topical p owder (LOTRIMIN AF, DESENEX) 1 application TOPICAL BID - hydrALAZINE 25 mg tab(s) (APRESOLINE) 25 mg NASOGASTRIC q 8 H - carvedilol 12.5 mg tab(s) (COREG) 12.5 mg NASOGASTRIC BID w MEALS - pill senior trainer (patient-specific) 1 Each Miscell. (Med.Supl.;Non-Drugs) PRN - insulin glargine 20 Units pen (long ac ting) (LANTUS SOLOSTAR, BASAGLAR KWIKPEN) 20 Units SUBCUTANEOUS q 12 h 7a m/7pm - ondansetron (PF) 4 mg injection (ZOFRA N) 4 mg INTRAVENOUS q 6 H PRN - sodium chloride 0.65 % 2 Vida (AYR, O CEAN) 2 Vida EACH NOSTRIL PRN - ipratropium-albuterol 3 mL nebulizer s olution (DUONEB) 3 mL INHALATION QID - acetaminophen 650 mg tab(s) (TYLENOL) 650 mg ORAL q 4 H PRN - insulin regular human injection (short acting) (NovoLIN R,HumuLIN R) SUBCUTANEOUS w MEALS AND HS - ipratropium-albuterol 3 mL nebulizer s olution (DUONEB) 3 mL INHALATION q 6 H PRN - insulin regular human 8 Units injectio n (short acting) (NovoLIN R,HumuLIN R) 8 Units SUBCUTANEOUS w MEAL S - cefTRIAXone 1 g in D5W 100 mL MB+ (CATRACHITO EPHIN) 1 g INTRAVENOUS q 24 H - NaCl 0.9% iv infusion 100 mL/hr INTRAV ENOUS CONTINUOUS DATA: Diagnostic tests reviewed for today's vi sit: CBC: Recent Labs 01/04/21425 WBC 13.33* RBC 3.78* HB 10.5* HCT 32.1* PLT 306 MCV 84.9 MCH 27.8 MPV 10.2 Coags: No results for input(s): PT, INR, APTT in the last 24 hours. BMP: Recent Labs 01/04/21425 NA 131* K 4.5 CHLOR 98 CO2 22 BUN 44* CREAT 2.97* GLUC 195* CMP: Recent Labs 01/04/21425 NA 131* K 4.5 CHLOR 98 CO2 22 BUN 44* CREAT 2.97* GLUC 195* CA 9.3 ANION 11 Cardiac Enzymes: No results for input(s) : CK, MB, CKMB, TROPT in the last 24 hours. Liver Function, Amylase, Lipase: No resu lts for input(s): TPROT, ALB, ALT, AST, ALKPHOS, TBILI, AMYLASE, LIPASE, LA CTATE in the last 24 hours. MG/PHOS: No results for input(s): MG, P in the last 24 hours. Renal Panel: Recent Labs 01/04/21425 CREAT 2.97* BUN 44* GLUC 195* CA 9.3 CHLOR 98 K 4.5 CO2 22 NA 131* Heme: No results for input(s): RETICP, A BSRETIC, LD, DIANE, FE, TIBC, TRANSFERSAT in the last 24 hours. No results found for: UALBCR Assessment/Plan 1. Acute encephalopathy. Secondary to [place] ESS. Appears to be improving. 2. Acute kidney injury. Yet to improve. Will rehydrate with normal saline. Appears to be prerenal. 3. Multiple decubitus ulcers. Appreciate input and assistance from wound care. VTE Prophylaxis: Heparin 5000 units Sub Q BID Disposition: Extended Care Facility Plan of care discussed with: ProviderKana, Patient SIGNATURE: Flavio Chaves MD PATIENT N JENIFER: Soni Cramer DATE: January 04, 2021 TIME: 6:30 PM PAGER/CONTACT #: Ward morse 01-04-2021 Note HNO ID: [id number] [facility] Author: Dayanna Kee RN Service: Care Management Author Type: Registered Nurse Type: Care Mgt Progress Note Filed: 01/04/2021 2:56 PM Note Text: CARE MANAGEMENT PROGRESS NOTE SERVICE DATE: 01/04/2021 SERVICE TIME: 2:50 PM LOS: 9 days Needs Prior to Discharge: Accepting Faci lity;Precertification;Discharge Transportation 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 We discussed prev referral to [facility], [facility] because of above and [facility] has no bed before January 10. We discussed snf choices [place] out of network and [facility]. Will ask for updated therapies since will need precert once have accepting facility. Cot will b e needed r/t max assist. SIGNATURE: Dayanna Kee RN PATIENT NAM E: Soni Cramer DATE: January 04, 2021 TIME: 2:50 PM PAGER/CONTACT #: 01-03-2021 Note HNO ID: [id number] [facility] Author: Ilene Lopez DO Service: Hospital Medicine Author Type: Physician Type: Progress Notes Filed: 01/04/2021 12:42 AM Note Text: INPATIENT PROGRESS NOTE SERVICE DATE: 01/03/2021 SERVICE TIME: 10:18 a.m. Subjective CHIEF COMPLAINT: f/u medical issues list ed below INTERVAL HPI: Fever 38.1 (100.6) at 07:03 Current Facility-Administered Medication s Medication Dose Route Frequency - aspirin, enteric coated 81 mg tab(s) 8 1 mg ORAL DAILY - sodium chloride 0.9 % (flush) 2-10 mL (BD POSIFLUSH) 2-10 mL INTRAVENOUS q 12 H - heparin 5,000 Units injection 5,000 Un its SUBCUTANEOUS q 12 H - sodium chloride 0.9 % (flush) 3-5 mL ( BD POSIFLUSH) 3-5 mL INTRAVENOUS q 12 H - LORazepam 1 mg injection (ATIVAN) 1 mg INTRAVENOUS q 5 MIN PRN - dextrose 40 % 15 g 15 g ORAL PRN Or - glucagon 1 mg injection 1 mg INTRAMUSC ULAR PRN Or - dextrose 50% in water 25 mL syringe 12 .5 g INTRAVENOUS PRN - hydrALAZINE 10 mg injection (APRESOLIN E) 10 mg INTRAVENOUS q 6 H PRN - miconazole 2 % 1 application topical p owder (LOTRIMIN AF, DESENEX) 1 application TOPICAL BID - hydrALAZINE 25 mg tab(s) (APRESOLINE) 25 mg NASOGASTRIC q 8 H - carvedilol 12.5 mg tab(s) (COREG) 12.5 mg NASOGASTRIC BID w MEALS - pill senior trainer (patient-specific) 1 Each Miscell. (Med.Supl.;Non-Drugs) PRN - insulin glargine 20 Units pen (long ac ting) (LANTUS SOLOSTAR, BASAGLAR KWIKPEN) 20 Units SUBCUTANEOUS q 12 h 7a m/7pm - ondansetron (PF) 4 mg injection (ZOFRA N) 4 mg INTRAVENOUS q 6 H PRN - sodium chloride 0.65 % 2 Vida (AYR, O CEAN) 2 Vida EACH NOSTRIL PRN - ipratropium-albuterol 3 mL nebulizer s olution (DUONEB) 3 mL INHALATION QID - acetaminophen 650 mg tab(s) (TYLENOL) 650 mg ORAL q 4 H PRN - insulin regular human injection (short acting) (NovoLIN R,HumuLIN R) SUBCUTANEOUS w MEALS AND HS - ipratropium-albuterol 3 mL nebulizer s olution (DUONEB) 3 mL INHALATION q 6 H PRN Objective PHYSICAL EXAM: BP 144/62 Pulse 82 Temp (Src) 100.6 (Oral) Resp 21 Ht 5' 5.984[per previously height documentati on per review of EMR[ (1.68m) Wt 313 lb 4.8 oz (142.1kg) SpO2 94% BMI 50.59 kg/(m2). O2 Therapy: Nasal Cannula, Liters: 1 Physical Exam Performed GENERAL: drowsy, no distress, cooperativ e Obese Weak SKIN: No rash HEAD/SINUSES: No significant findings EARS: External ears normal NOSE: Nares normal. Septum midline. OROPHARYNX: Lips normal. LUNGS: Lungs clear CARDIAC: reg ABDOMEN: Abdomen soft EXTREMITIES:no swelling NEURO: weak DATA: Diagnostic tests reviewed for today's vi sit: Most recent labs and imaging results. Assessment/Plan # fever 38.1 (100.6) at 07:03 01/03/21 Check CXR- Check blood cultures- Change robb and Check UA and urine culture from [place] y->pyuria Update: Start ceftriaxone for UTI # encephalopathy 12/27/20 MRI brain wo IV con 1. Abnormal T2/FLAIR signal within bilat eral posterior parietal lobes, bilateral medial occipital lobes, and to lesser degree bilateral anterior frontal lobes near the vertex. ?Differen tial includes but not limited to PRES, or encephalitis/meningitis. ?Clini brain correlation and short-term follow-up is recommended. 2. No acute infarct, acute lobar hemorrh age, or significant mass effect. 3. Punctate focus of susceptibility sign al within the right aspect of the alfredito, most compatible with chronic micro hemorrhage. 4. 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 Also metabolic encephalopathy # SANGEETHA 12/30/20 US no hydronephrosis nephro following # DM2 Endo following # morbid obesity # dysphagia Minced and moist food/thin liquid # wounds: Wound Type:?pressure- Deep tissue injury - deteriorating; was a stage 2 Location:?left heel ?? Present on admission:?yes ?Measurement: 2.5 x 2.5 x 0 c m ?Wound Bed: blood fluid fille d bulla ?Exudate: none Odor:?none ?Periwound: localized erythem a ?S/S of infection: none ?Local pulse: palpated ? Wound Type:?diabetic foot ulcer-stable Location:?Left plantar 1st met?? Present on admission:?yes ?Measurement: 1.7 x 1.9 x 0cm ?Wound Bed: dry eschar ?Exudate: none Odor:?none ?Periwound: dry, scaly ?S/S of infection: none ?Local pulse: palpated ?Pain: denies ? Wound Type: Diabetic foot ulcer Location: left 3rd toe/ dorsal Present on admission: yes Measurement: 0.7 x 0.7 x 0cm Wound Bed: dry, thick scab Exudate: none Odor: chino Periwound: intact S/S of infection: no ? Wound Type:?pressure?-stage 1-improved Location:?right heel ?? Present on admission:?yes ?Measurement: diffuse non-lydia nching erythema ? Wound Type:?pressure- stage 1 with MAD- improved Location:?coccyx ?? Present on admission:?yes ?Measuremen (more content not included)... 01-02-2021 Note HNO ID: [id number] [facility] Author: Donna Costello MD Service: Nephrology Author Type: Physician Type: Progress Notes Filed: 01/02/2021 8:03 PM Note Text: CONSULT PROGRESS NOTE NEPHROLOGY SERVICE Following for SANGEETHA Edematous Some dyspnea MEDICATIONS: Current Facility-Administered Medication s Medication Dose Route Frequency - aspirin, enteric coated 81 mg tab(s) 8 1 mg ORAL DAILY - sodium chloride 0.9 % (flush) 2-10 mL (BD POSIFLUSH) 2-10 mL INTRAVENOUS q 12 H - heparin 5,000 Units injection 5,000 Un its SUBCUTANEOUS q 12 H - sodium chloride 0.9 % (flush) 3-5 mL ( BD POSIFLUSH) 3-5 mL INTRAVENOUS q 12 H - LORazepam 1 mg injection (ATIVAN) 1 mg INTRAVENOUS q 5 MIN PRN - dextrose 40 % 15 g 15 g ORAL PRN Or - glucagon 1 mg injection 1 mg INTRAMUSC ULAR PRN Or - dextrose 50% in water 25 mL syringe 12 .5 g INTRAVENOUS PRN - hydrALAZINE 10 mg injection (APRESOLIN E) 10 mg INTRAVENOUS q 6 H PRN - miconazole 2 % 1 application topical p owder (LOTRIMIN AF, DESENEX) 1 application TOPICAL BID - hydrALAZINE 25 mg tab(s) (APRESOLINE) 25 mg NASOGASTRIC q 8 H - carvedilol 12.5 mg tab(s) (COREG) 12.5 mg NASOGASTRIC BID w MEALS - pill senior trainer (patient-specific) 1 Each Miscell. (Med.Supl.;Non-Drugs) PRN - insulin glargine 20 Units pen (long ac ting) (LANTUS SOLOSTAR, BASAGLAR KWIKPEN) 20 Units SUBCUTANEOUS q 12 h 7a m/7pm - ondansetron (PF) 4 mg injection (ZOFRA N) 4 mg INTRAVENOUS q 6 H PRN - sodium chloride 0.65 % 2 Vida (AYR, O CEAN) 2 Vida EACH NOSTRIL PRN - ipratropium-albuterol 3 mL nebulizer s olution (DUONEB) 3 mL INHALATION QID - acetaminophen 650 mg tab(s) (TYLENOL) 650 mg ORAL q 4 H PRN - insulin regular human injection (short acting) (NovoLIN R,HumuLIN R) SUBCUTANEOUS w MEALS AND HS Objective PHYSICAL EXAM: BP 143/54 Pulse 71 Temp 37.9 ?C (100 .2 ?F) (Oral) Resp 20 Ht 167.6 cm (5' 5.98) Wt (!) 142.1 kg (3 13 lb 4.8 oz) SpO2 94% BMI 50.59 kg/m? Intake/Output Summary (Last 24 hours) at 01/02/20212001 Last data filed at 01/02/2021 1832 Gross per 24 hour Intake 1526 ml Output 1100 ml Net 426 ml Constitutional: No acute distress and Re sponsive Neck: Trachea midline No jugular venous distension Cardiovascular: Regular rate and rhythm, normal S1 and S2, no murmurs, rubs, or gallops anasarca +2 Respiratory: Normal respiratory effort. Lungs clear bilaterally. Abdomen: Soft, non-tender, non-distended . Normal bowel sounds. No hepatosplenomegaly. Psychiatric: Alert and oriented x self, place, time, and setting Normal mood/affect DATA: Diagnostic tests reviewed for today's vi sit: Most recent labs Recent Labs 01/02/21 1155 01/01/21 0452 12/31/20 0321 12/30/20 0034 12/29/20 1032 12/28/20 0426 12/28/20 0426 12/27/20 1435 12/27/20 0636 12/27/20 0023 12/27/20 0023 NA 132* 135* 134* 137 135* < > 139 < > 1 39 < > 143 K 4.1 4.0 3.6* 3.6* 3.2* < > 3.0* < > 4. 0 < > 2.6* CHLOR 100 105 101 106* 104 < > 106* < > 107* < > 118* CO2 20* 23 24 23 23 < > 23 < > 18* 15. 5* < > 14* BUN 40* 39* 36* 27* 21 < > 14 < > 12 < > 8 CREAT 2.89* 2.82* 2.48* 1.97* 1.50* < > 0.79 < > 0.79 < > 0.56* GLUC 218* 147* 228* 294* 146* < > 279* < > 298* < > 127* ANION 12 7* 9 8* 8* < > 10 < > 14 < > 11 CA 9.3 9.0 8.9 8.8 8.7 < > 8.8 < > 8.7 < > 6.1* MG -- -- -- -- -- -- 2.1 -- 2.7* -- 1.3* < > = values in this interval not displa yed. Recent Labs 12/30/20 0034 12/29/20 1033 12/28/20 0426 WBC 12.51* 14.60* 18.30* HB 12.5 12.6 13.4 HCT 39.5 39.5 41.0 PLT 308 302 258 Recent Labs 12/27/20 1443 COLOR Yellow CLARITY Turbid* UGLUC >=1000 mg/dL* UBILI Negative UKET 40 mg/dL* SPGR 1.029 UHB Small* UPH 6.0 UPROT 100 mg/dL* NITRITES Negative LEUKEST Small* UWBC >25 /HPF* URBC 11-25 /HPF* Assessment/Plan 1- SANGEETHA . Normal baseline Cr. Nonoliguric UA showed proteinuria and RBC FeNa < 1% SANGEETHA prerenal ( low serum albumin and poo r oral intake) Vs ATN Vs GN No IV contrast. Renal US is negative for hydro. Urin eos is negative Cr is about the same Will give one dose of lasix since she co mplains of dyspnea 01-02-2021 Note HNO ID: [id number] [facility] Author: AZAM Sanchez Service: Care Management Author Type: [employer] Type: Care Mgt Progress Note Filed: 01/02/2021 4:21 PM Note Text: CARE MANAGEMENT PROGRESS NOTE SERVICE DATE: 01/02/2021 SERVICE TIME: 1615 LOS: 7 days Needs Prior to Discharge: Accepting Faci lity;Discharge Transportation;Precertification [place] [facility] denied as they do not feel pt can tolerate acute rehab. Met with pt and sister in the room. Discusse d [place] denial. Referral also sent to [facility]. Explained that snf ma y be needed at discharge if tolerance does not improve. Pt and siste r in agreement. Choice for [facility] in [place] as pt has been there in the past. Referral sent. SIGNATURE: AZAM Sanchez PATIENT NAM E: Soni Cramer DATE: January 02, 2021 TIME: 4:19 PM PAGER/CONTACT #: 01-02-2021 Note HNO ID: [id number] [facility] Author: Ilene Lopez DO Service: Hospital Medicine Author Type: Physician Type: Progress Notes Filed: 01/03/2021 5:18 AM Note Text: INPATIENT PROGRESS NOTE SERVICE DATE: 01/02/2021 SERVICE TIME: 12:00 Subjective CHIEF COMPLAINT: f/u medical issues list ed below INTERVAL HPI: A AND O x 3 Weak C/o sob-better after duoneb Diet consistency rec: minced and moist/t hin liquids Current Facility-Administered Medication s Medication Dose Route Frequency - aspirin, enteric coated 81 mg tab(s) 8 1 mg ORAL DAILY - sodium chloride 0.9 % (flush) 2-10 mL (BD POSIFLUSH) 2-10 mL INTRAVENOUS q 12 H - heparin 5,000 Units injection 5,000 Un its SUBCUTANEOUS q 12 H - sodium chloride 0.9 % (flush) 3-5 mL ( BD POSIFLUSH) 3-5 mL INTRAVENOUS q 12 H - LORazepam 1 mg injection (ATIVAN) 1 mg INTRAVENOUS q 5 MIN PRN - dextrose 40 % 15 g 15 g ORAL PRN Or - glucagon 1 mg injection 1 mg INTRAMUSC ULAR PRN Or - dextrose 50% in water 25 mL syringe 12 .5 g INTRAVENOUS PRN - hydrALAZINE 10 mg injection (APRESOLIN E) 10 mg INTRAVENOUS q 6 H PRN - miconazole 2 % 1 application topical p owder (LOTRIMIN AF, DESENEX) 1 application TOPICAL BID - insulin regular human injection (short acting) (NovoLIN R,HumuLIN R) SUBCUTANEOUS q 6 H - hydrALAZINE 25 mg tab(s) (APRESOLINE) 25 mg NASOGASTRIC q 8 H - carvedilol 12.5 mg tab(s) (COREG) 12.5 mg NASOGASTRIC BID w MEALS - pill senior trainer (patient-specific) 1 Each Miscell. (Med.Supl.;Non-Drugs) PRN - insulin regular human 16 Units injecti on (short acting) (NovoLIN R,HumuLIN R) 16 Units SUBCUTANEOUS 2 mikki es per day - insulin glargine 20 Units pen (long ac ting) (LANTUS SOLOSTAR, BASAGLAR KWIKPEN) 20 Units SUBCUTANEOUS q 12 h 7a m/7pm - ondansetron (PF) 4 mg injection (ZOFRA N) 4 mg INTRAVENOUS q 6 H PRN - sodium chloride 0.65 % 2 Vida (AYR, O CEAN) 2 Vida EACH NOSTRIL PRN - ipratropium-albuterol 3 mL nebulizer s olution (DUONEB) 3 mL INHALATION QID - acetaminophen 650 mg tab(s) (TYLENOL) 650 mg ORAL q 4 H PRN Objective PHYSICAL EXAM: BP 141/57 Pulse 77 Temp (Src) 100.2 (Axillary) Resp 20 Ht 5' 5.984[per previously height documentati on per review of EMR[ (1.68m) Wt 313 lb 4.8 oz (142.1kg) SpO2 94% BMI 50.59 kg/(m2). O2 Therapy: Nasal Cannula, Liters: 1 Physical Exam Performed GENERAL: Alert, no distress, cooperative A AND O x 3 Obese Weak SKIN: No rash HEAD/SINUSES: No significant findings EARS: External ears normal NOSE: Nares normal. Septum midline. FT in r nostril OROPHARYNX: Lips normal. LUNGS: Lungs clear CARDIAC: reg ABDOMEN: Abdomen soft EXTREMITIES:no swelling NEURO: weak DATA: Diagnostic tests reviewed for today's vi sit: Most recent labs and imaging results. Assessment/Plan # encephalopathy 12/27/20 MRI brain wo IV con 1. Abnormal T2/FLAIR signal within bilat eral posterior parietal lobes, bilateral medial occipital lobes, and to lesser degree bilateral anterior frontal lobes near the vertex. ?Differen tial includes but not limited to PRES, or encephalitis/meningitis. ?Clini brain correlation and short-term follow-up is recommended. 2. No acute infarct, acute lobar hemorrh age, or significant mass effect. 3. Punctate focus of susceptibility sign al within the right aspect of the alfredito, most compatible with chronic micro hemorrhage. 4. 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 # SANGEETHA 12/30/20 US no hydronephrosis nephro following # DM2 Endo following # morbid obesity # dysphagia Minced and moist food/thin liquid Recommended Discharge Disposition: Acute Rehab Medication and Non-Pharmacologic VTE Pro phylaxis/Anticoagulants Anticoagulant AND Antiplatelet Medicatio ns (From admission, onward) Comment Start Dose Route Frequency Last Action O rdered Stop 12/26/202329 aspirin, enteric coated 81 mg tab(s) 81 mg ORAL DAILY Given, 01/02 -- 12/26/20 233 heparin 5,000 Units inject ion (Medical Risk Categories) 5,000 Units SUBCUTANEOUS EVERY 12 HOURS Given, 01/03 82012/26/202312 -- 12/26/202314 activity - mobilize patien t (ut,me) VTE Prophylaxis: SIGNATURE: Ilene Lopez DO PATIENT NAME: Soni Cramer DATE: January 02, 2021 TIME: PAGER: 01-01-2021 Note HNO ID: [id number] [facility] Author: Ilene Lopez DO Service: Hospital Medicine Author Type: Physician Type: Progress Notes Filed: 01/02/2021 5:01 AM Note Text: INPATIENT PROGRESS NOTE SERVICE DATE: 01/01/2021 SERVICE TIME: 5:54 p Subjective CHIEF COMPLAINT: f/u medical issues list ed below INTERVAL HPI: AANDO x 3 Current Facility-Administered Medication s Medication Dose Route Frequency - aspirin, enteric coated 81 mg tab(s) 8 1 mg ORAL DAILY - sodium chloride 0.9 % (flush) 2-10 mL (BD POSIFLUSH) 2-10 mL INTRAVENOUS q 12 H - heparin 5,000 Units injection 5,000 Un its SUBCUTANEOUS q 12 H - sodium chloride 0.9 % (flush) 3-5 mL ( BD POSIFLUSH) 3-5 mL INTRAVENOUS q 12 H - LORazepam 1 mg injection (ATIVAN) 1 mg INTRAVENOUS q 5 MIN PRN - dextrose 40 % 15 g 15 g ORAL PRN Or - glucagon 1 mg injection 1 mg INTRAMUSC ULAR PRN Or - dextrose 50% in water 25 mL syringe 12 .5 g INTRAVENOUS PRN - hydrALAZINE 10 mg injection (APRESOLIN E) 10 mg INTRAVENOUS q 6 H PRN - miconazole 2 % 1 application topical p owder (LOTRIMIN AF, DESENEX) 1 application TOPICAL BID - insulin regular human injection (short acting) (NovoLIN R,HumuLIN R) SUBCUTANEOUS q 6 H - hydrALAZINE 25 mg tab(s) (APRESOLINE) 25 mg NASOGASTRIC q 8 H - carvedilol 12.5 mg tab(s) (COREG) 12.5 mg NASOGASTRIC BID w MEALS - pill senior trainer (patient-specific) 1 Each Miscell. (Med.Supl.;Non-Drugs) PRN - insulin regular human 16 Units injecti on (short acting) (NovoLIN R,HumuLIN R) 16 Units SUBCUTANEOUS 2 mikki es per day - insulin glargine 20 Units pen (long ac ting) (LANTUS SOLOSTAR, BASAGLAR KWIKPEN) 20 Units SUBCUTANEOUS q 12 h 7a m/7pm - ondansetron (PF) 4 mg injection (ZOFRA N) 4 mg INTRAVENOUS q 6 H PRN - albumin (25%) 25 g infusion 25 g INTRA VENOUS q 8 H Objective PHYSICAL EXAM: BP 121/52 Pulse 71 Temp (Src) 99.1 ( Axillary) Resp 17 Ht 5' 5.984[per previously height documentati on per review of EMR[ (1.68m) Wt 313 lb 4.8 oz (142.1kg) SpO2 95% BMI 50.59 kg/(m2). O2 Therapy: Room Air Physical Exam Performed GENERAL: Alert, no distress, cooperative A AND O x 3 (name/[facility]/december 2020 ) Obese Weak SKIN: No rash HEAD/SINUSES: No significant findings EARS: External ears normal NOSE: Nares normal. Septum midline. FT in r nostril OROPHARYNX: Lips normal. LUNGS: Lungs clear CARDIAC: reg ABDOMEN: Abdomen soft EXTREMITIES:no swelling NEURO: weak Moves arms against resistance Bends knees DATA: Diagnostic tests reviewed for today's vi sit: Most recent labs and imaging results. Assessment/Plan # encephalopathy 12/27/20 MRI brain wo IV con 1. Abnormal T2/FLAIR signal within bilat eral posterior parietal lobes, bilateral medial occipital lobes, and to lesser degree bilateral anterior frontal lobes near the vertex. ?Differen tial includes but not limited to PRES, or encephalitis/meningitis. ?Clini brain correlation and short-term follow-up is recommended. 2. No acute infarct, acute lobar hemorrh age, or significant mass effect. 3. Punctate focus of susceptibility sign al within the right aspect of the alfredito, most compatible with chronic micro hemorrhage. 4. 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 # SANGEETHA 12/30/20 US no hydronephrosis nephro following # DM2 Endo following # morbid obesity # dysphagia Pureed/thin Recommended Discharge Disposition: Acute Rehab Medication and Non-Pharmacologic VTE Pro phylaxis/Anticoagulants Anticoagulant AND Antiplatelet Medicatio ns (From admission, onward) Comment Start Dose Route Frequency Last Action O rdered Stop 12/26/20 233 aspirin, enteric coated 81 mg tab(s) 81 mg ORAL DAILY Given, 01/01 -- 12/26/20 233 heparin 5,000 Units inject ion (Medical Risk Categories) 5,000 Units SUBCUTANEOUS EVERY 12 HOURS Given, 01/01 81312/26/202312 -- 12/26/20 231 activity - mobilize patien t (fl,oh) VTE Prophylaxis: SIGNATURE: Ilene Lopez DO PATIENT NAME: Soni Cramer DATE: January 01, 2021 TIME: 5:54 PM PAGER: 01-01-2021 Note HNO ID: [id number] [facility] Author: Rodri Jordan MD Service: Nephrology Author Type: Physician Type: Progress Notes Filed: 01/01/2021 2:52 PM Note Text: CONSULT PROGRESS NOTE NEPHROLOGY SERVICE Following for SANGEETHA No worsening breathing No N/V/CP On NGT feeding during night Has edema MEDICATIONS: Current Facility-Administered Medication s Medication Dose Route Frequency - aspirin, enteric coated 81 mg tab(s) 8 1 mg ORAL DAILY - sodium chloride 0.9 % (flush) 2-10 mL (BD POSIFLUSH) 2-10 mL INTRAVENOUS q 12 H - heparin 5,000 Units injection 5,000 Un its SUBCUTANEOUS q 12 H - sodium chloride 0.9 % (flush) 3-5 mL ( BD POSIFLUSH) 3-5 mL INTRAVENOUS q 12 H - LORazepam 1 mg injection (ATIVAN) 1 mg INTRAVENOUS q 5 MIN PRN - dextrose 40 % 15 g 15 g ORAL PRN Or - glucagon 1 mg injection 1 mg INTRAMUSC ULAR PRN Or - dextrose 50% in water 25 mL syringe 12 .5 g INTRAVENOUS PRN - hydrALAZINE 10 mg injection (APRESOLIN E) 10 mg INTRAVENOUS q 6 H PRN - miconazole 2 % 1 application topical p owder (LOTRIMIN AF, DESENEX) 1 application TOPICAL BID - insulin regular human injection (short acting) (NovoLIN R,HumuLIN R) SUBCUTANEOUS q 6 H - hydrALAZINE 25 mg tab(s) (APRESOLINE) 25 mg NASOGASTRIC q 8 H - carvedilol 12.5 mg tab(s) (COREG) 12.5 mg NASOGASTRIC BID w MEALS - pill senior trainer (patient-specific) 1 Each Miscell. (Med.Supl.;Non-Drugs) PRN - insulin regular human 16 Units injecti on (short acting) (NovoLIN R,HumuLIN R) 16 Units SUBCUTANEOUS 2 mikki es per day - insulin glargine 20 Units pen (long ac ting) (LANTUS SOLOSTAR, BASAGLAR KWIKPEN) 20 Units SUBCUTANEOUS q 12 h 7a m/7pm - ondansetron (PF) 4 mg injection (ZOFRA N) 4 mg INTRAVENOUS q 6 H PRN Objective PHYSICAL EXAM: BP 121/52 Pulse 71 Temp 37.3 ?C (99. 1 ?F) (Axillary) Resp 17 Ht 167.6 cm (5' 5.98) Wt (!) 142.1 kg (313 lb 4.8 oz) SpO2 95% BMI 50.59 kg/m? Intake/Output Summary (Last 24 hours) at 01/01/2021 1449 Last data filed at 01/01/2021 0800 Gross per 24 hour Intake 250 ml Output 450 ml Net -200 ml Constitutional: No acute distress and Re sponsive Neck: Trachea midline No jugular venous distension Cardiovascular: Regular rate and rhythm, normal S1 and S2, no murmurs, rubs, or gallops anasarca +2 Respiratory: Normal respiratory effort. Lungs clear bilaterally. Abdomen: Soft, non-tender, non-distended . Normal bowel sounds. No hepatosplenomegaly. Psychiatric: Alert and oriented x self, place, time, and setting Normal mood/affect DATA: Diagnostic tests reviewed for today's vi sit: Most recent labs Recent Labs 01/01/21 0452 12/31/20 0321 12/30/20 0034 12/29/20 1032 12/28/20 0426 12/27/20 1435 12/27/20 0636 12/27/20 0023 12/27/20 0023 NA 135* 134* 137 135* 139 < > 139 < > 14 3 K 4.0 3.6* 3.6* 3.2* 3.0* < > 4.0 < > 2. 6* CHLOR 105 101 106* 104 106* < > 107* < > 118* CO2 23 24 23 23 23 < > 18* 15.5* < > 1 4* BUN 39* 36* 27* 21 14 < > 12 < > 8 CREAT 2.82* 2.48* 1.97* 1.50* 0.79 < > 0 .79 < > 0.56* GLUC 147* 228* 294* 146* 279* < > 298* < > 127* ANION 7* 9 8* 8* 10 < > 14 < > 11 CA 9.0 8.9 8.8 8.7 8.8 < > 8.7 < > 6.1* MG -- -- -- -- 2.1 -- 2.7* -- 1.3* < > = values in this interval not displa yed. Recent Labs 12/30/20 0034 12/29/20 1033 12/28/20 0426 WBC 12.51* 14.60* 18.30* HB 12.5 12.6 13.4 HCT 39.5 39.5 41.0 PLT 308 302 258 Recent Labs 12/27/20 1443 COLOR Yellow CLARITY Turbid* UGLUC >=1000 mg/dL* UBILI Negative UKET 40 mg/dL* SPGR 1.029 UHB Small* UPH 6.0 UPROT 100 mg/dL* NITRITES Negative LEUKEST Small* UWBC >25 /HPF* URBC 11-25 /HPF* Assessment/Plan 1- SANGEETHA . Normal baseline Cr. Nonoliguric UA showed proteinuria and RBC FeNa < 1% SANGEETHA prerenal ( low serum albumin and poo r oral intake) Vs ATN Vs GN No IV contrast. Renal US is negative for hydro. Urin eosino is negative Cr continues to rise despite IV volume e xpansion. Doubt the patient has CRS. I reviewed the last echo from 12/31 which showed normal I still think she is dry intravascularly . Will give more IV albumin today C3/C4 amber, anca are pending No indication for HD Continue robb cath Check RFP in am Renal team will continue to follow Call if any question RODRI JORDAN MD 12-31-2020 Note HNO ID: [id number] [facility] Author: Rodri Jordan MD Service: Nephrology Author Type: Physician Type: Progress Notes Filed: 12/31/2020 3:12 PM Note Text: CONSULT PROGRESS NOTE NEPHROLOGY SERVICE Following for SANGEETHA No worsening breathing No N/V/CP MEDICATIONS: Current Facility-Administered Medication s Medication Dose Route Frequency - aspirin, enteric coated 81 mg tab(s) 8 1 mg ORAL DAILY - sodium chloride 0.9 % (flush) 2-10 mL (BD POSIFLUSH) 2-10 mL INTRAVENOUS q 12 H - heparin 5,000 Units injection 5,000 Un its SUBCUTANEOUS q 12 H - sodium chloride 0.9 % (flush) 3-5 mL ( BD POSIFLUSH) 3-5 mL INTRAVENOUS q 12 H - LORazepam 1 mg injection (ATIVAN) 1 mg INTRAVENOUS q 5 MIN PRN - dextrose 40 % 15 g 15 g ORAL PRN Or - glucagon 1 mg injection 1 mg INTRAMUSC ULAR PRN Or - dextrose 50% in water 25 mL syringe 12 .5 g INTRAVENOUS PRN - hydrALAZINE 10 mg injection (APRESOLIN E) 10 mg INTRAVENOUS q 6 H PRN - sodium chloride 0.9 % (flush) 2-10 mL (BD POSIFLUSH) 2-10 mL INTRAVENOUS DIRECTED PRN - miconazole 2 % 1 application topical p owder (LOTRIMIN AF, DESENEX) 1 application TOPICAL BID - insulin regular human injection (short acting) (NovoLIN R,HumuLIN R) SUBCUTANEOUS q 6 H - hydrALAZINE 25 mg tab(s) (APRESOLINE) 25 mg NASOGASTRIC q 8 H - carvedilol 12.5 mg tab(s) (COREG) 12.5 mg NASOGASTRIC BID w MEALS - pill senior trainer (patient-specific) 1 Each Miscell. (Med.Supl.;Non-Drugs) PRN - insulin regular human 16 Units injecti on (short acting) (NovoLIN R,HumuLIN R) 16 Units SUBCUTANEOUS 2 mikki es per day - NaCl 0.9% iv infusion 100 mL/hr INTRAV ENOUS CONTINUOUS - insulin glargine 20 Units pen (long ac ting) (LANTUS SOLOSTAR, BASAGLAR KWIKPEN) 20 Units SUBCUTANEOUS q 12 h 7a m/7pm - ondansetron (PF) 4 mg injection (ZOFRA N) 4 mg INTRAVENOUS q 6 H PRN Objective PHYSICAL EXAM: BP 144/58 Pulse 68 Temp 37 ?C (98.6 ?F) (Oral) Resp 18 Ht 167.6 cm (5' 5.98) Wt (!) 142.1 kg (3 13 lb 4.8 oz) SpO2 93% BMI 50.59 kg/m? Intake/Output Summary (Last 24 hours) at 12/31/2020 1506 Last data filed at 12/31/2020 1312 Gross per 24 hour Intake 597 ml Output 850 ml Net -253 ml Constitutional: No acute distress and Re sponsive Neck: Trachea midline No jugular venous distension Cardiovascular: Regular rate and rhythm, normal S1 and S2, no murmurs, rubs, or gallops anasarca +2 Respiratory: Normal respiratory effort. Lungs clear bilaterally. Abdomen: Soft, non-tender, non-distended . Normal bowel sounds. No hepatosplenomegaly. Psychiatric: Alert and oriented x self, place, time, and setting Normal mood/affect DATA: Diagnostic tests reviewed for today's vi sit: Most recent labs Recent Labs 12/31/20 0321 12/30/20 0034 12/29/20 1032 12/28/20 0426 12/27/20 1435 12/27/20 0636 12/27/20 0636 12/27/20 0023 12/27/20 0023 NA 134* 137 135* 139 136 < > 139 < > 143 K 3.6* 3.6* 3.2* 3.0* 3.2* < > 4.0 < > 2 .6* CHLOR 101 106* 104 106* 106* < > 107* < > 118* CO2 24 23 23 23 18* < > 18* 15.5* < > 14* BUN 36* 27* 21 14 12 < > 12 < > 8 CREAT 2.48* 1.97* 1.50* 0.79 0.75 < > 0. 79 < > 0.56* GLUC 228* 294* 146* 279* 319* < > 298* < > 127* ANION 9 8* 8* 10 12 < > 14 < > 11 CA 8.9 8.8 8.7 8.8 8.6 < > 8.7 < > 6.1* MG -- -- -- 2.1 -- -- 2.7* -- 1.3* < > = values in this interval not displa yed. Recent Labs 12/30/20 0034 12/29/20 1033 12/28/20 0426 WBC 12.51* 14.60* 18.30* HB 12.5 12.6 13.4 HCT 39.5 39.5 41.0 PLT 308 302 258 Recent Labs 12/27/20 1443 COLOR Yellow CLARITY Turbid* UGLUC >=1000 mg/dL* UBILI Negative UKET 40 mg/dL* SPGR 1.029 UHB Small* UPH 6.0 UPROT 100 mg/dL* NITRITES Negative LEUKEST Small* UWBC >25 /HPF* URBC 11-25 /HPF* Assessment/Plan 1- SANGEETHA . Normal baseline Cr. Nonoliguric UA showed proteinuria and RBC FeNa < 1% SANGEETHA prerenal ( low serum albumin and poo r oral intake) Vs ATN Vs GN No IV contrast. Renal US is negative for hydro IVF started 12/30 . Cr continues to rise Will d/c IVF and give IV albumin Will check C3/C4 amber, anca and urine eos inophils No indication for HD Continue robb cath Check RFP in am Renal team will continue to follow Call if any question RODRI JORDAN MD 12-31-2020 Note HNO ID: [id number] [facility] Author: Owen Swift MD Service: Hospital Medicine Author Type: Physician Type: Progress Notes Filed: 12/31/2020 11:26 AM Note Text: DEPARTMENT OF HOSPITAL MEDICINE PROGRESS NOTE SERVICE DATE: 12/31/2020 SERVICE TIME: 10:44 AM Hospital Medicine/Primary Attending: Owen Swift MD NIGHT AND WEEKEND COVERAGE: After 7pm please page [phone] CHIEF COMPLAINT: Altered mental status SUBJECTIVE: 65 year old female transferr ed from [place] on 12/26/20 with a hx of CHF, PAF, RA, seizure disorder, Ta kotsubo cardiomyopathy, CAD s/p STEMI, pressure ulcers on feet, QIAN, HL, hypothyroidism, diverticulitis, firbomyalgia, hx of CVA, morbid obesity and HTN, who was brought to [facility]'s ER 12/22 after family f ound her at her home confused, pacing, and agitated. REGISTERED CLINICAL DIETITIAN infection was ruled out, no Vegetation on 2D echo, she is off Abx per ID.she has SANGEETHA, she has edema in all extremities, she is on NS 75cc/hr per Renal. Patient was seen and examined, mental st atus continues to improve. More alert, awake, calm, no fever, no pain, n o new complaints or acute events overnight. OBJECTIVE: PHYSICAL EXAM: BP 150/63 Pulse 75 Te mp (Src) 98.6 (Axillary) Resp 16 Ht 5' 5.984[per previously height doc umentation per review of EMR[ (1.68m) Wt 313 lb 4.8 oz (142.1kg) S pO2 97% BMI 50.59 kg/(m2). O2 Therapy: Room Air General - AANDOx3,Calm HEENT: Feeding tube in place on TF at ni ght CV - RRR, S1 S2, No M/R/G RESP - Diminished breath sounds, No whee zes, ronchi, rales ABD - soft, NT, ND +BS EXT - 3+ pitting edema in all extremitie s NEURO - CN II-XII grossly intact, no foc al deficits SKIN: Pressure ulcers on feet MEDICATIONS: Current Facility-Administered Medication s Medication Dose Route Frequency - aspirin, enteric coated 81 mg tab(s) 8 1 mg ORAL DAILY - sodium chloride 0.9 % (flush) 2-10 mL (BD POSIFLUSH) 2-10 mL INTRAVENOUS q 12 H - heparin 5,000 Units injection 5,000 Un its SUBCUTANEOUS q 12 H - sodium chloride 0.9 % (flush) 3-5 mL ( BD POSIFLUSH) 3-5 mL INTRAVENOUS q 12 H - LORazepam 1 mg injection (ATIVAN) 1 mg INTRAVENOUS q 5 MIN PRN - dextrose 40 % 15 g 15 g ORAL PRN Or - glucagon 1 mg injection 1 mg INTRAMUSC ULAR PRN Or - dextrose 50% in water 25 mL syringe 12 .5 g INTRAVENOUS PRN - hydrALAZINE 10 mg injection (APRESOLIN E) 10 mg INTRAVENOUS q 6 H PRN - sodium chloride 0.9 % (flush) 2-10 mL (BD POSIFLUSH) 2-10 mL INTRAVENOUS DIRECTED PRN - miconazole 2 % 1 application topical p owder (LOTRIMIN AF, DESENEX) 1 application TOPICAL BID - insulin regular human injection (short acting) (NovoLIN R,HumuLIN R) SUBCUTANEOUS q 6 H - hydrALAZINE 25 mg tab(s) (APRESOLINE) 25 mg NASOGASTRIC q 8 H - carvedilol 12.5 mg tab(s) (COREG) 12.5 mg NASOGASTRIC BID w MEALS - pill senior trainer (patient-specific) 1 Each Miscell. (Med.Supl.;Non-Drugs) PRN - insulin regular human 16 Units injecti on (short acting) (NovoLIN R,HumuLIN R) 16 Units SUBCUTANEOUS 2 mikki es per day - NaCl 0.9% iv infusion 75 mL/hr INTRAVE NOUS CONTINUOUS - insulin glargine 20 Units pen (long ac ting) (LANTUS SOLOSTAR, BASAGLAR KWIKPEN) 20 Units SUBCUTANEOUS q 12 h 7a m/7pm DATA: Diagnostic tests reviewed for today's vi sit: CBC: No results for input(s): WBC, RBC, HB, HCT, PLT, MCV, MCH, MPV, RDW in the last 24 hours. Coags: No results for input(s): PT, INR, APTT in the last 24 hours. BMP: Recent Labs 12/31/20320 NA 134* K 3.6* CHLOR 101 CO2 24 BUN 36* CREAT 2.48* GLUC 228* CMP: Recent Labs 12/31/20320 NA 134* K 3.6* CHLOR 101 CO2 24 BUN 36* CREAT 2.48* GLUC 228* CA 8.9 ANION 9 Cardiac Enzymes: Recent Labs 12/31/20320 CK 55 Liver Function, Amylase, Lipase: No resu lts for input(s): TPROT, ALB, ALT, AST, ALKPHOS, TBILI, AMYLASE, LIPASE, LA CTATE in the last 24 hours. MG/PHOS: No results for input(s): MG, P in the last 24 hours. Renal Panel: Recent Labs 12/31/20320 CREAT 2.48* BUN 36* GLUC 228* CA 8.9 CHLOR 101 K 3.6* CO2 24 NA 134* Heme: No results for input(s): RETICP, A BSRETIC, LD, DIANE, FE, TIBC, TRANSFERSAT in the last 24 hours. No results found for: UALBCR Assessment/Plan Acute metabolic encephalopathy,MRI findi ngs consistent with PRES. Neurology and ID following. LP done at [facility]. CSF Cx no growth.??Off vancomycin and Rocephin per ID. No REGISTERED CLINICAL DIETITIAN infection. Seizure disorder:-was On IV Keppra. EEG? ?so far negative for seizures. BEM Dced. KEppra DCed. SANGEETHA, pre renal vs crystallization of Acy clovir? Renal function is worsening, Continue NS 75 cc/hr ofr now per Nephrology. Renal US neg. Urine sodium <20. Pt Does not appear vol ume depleted but more overload ? to me or may be Third spacing from low a lbumin. Renal US negative. Hypokalemia and hypomagnesemia:?Replace, resolved. Mild hyponatremia, Na+ 134. Leukocytosis- improving, ?off Abx. IDDM type 2, ?had?DKA on admission to [facility]. DKA?now resolved. ?Patient (more content not included)... 12-30-2020 Note HNO ID: [id number] [facility] Author: Hugh Martinez MD Service: Hospital Medicine Author Type: Physician Type: Progress Notes Filed: 12/30/2020 3:31 PM Note Text: INPATIENT PROGRESS NOTE CHIEF COMPLAINT: AMS INTERVAL HPI: Patient appears sleepy tod ay. Able to answer questions. Poor p.o. intake per RN. Remains afebril e. PHYSICAL EXAM: BP 128/63 Pulse 69 Temp (Src) 97.3 ( Oral) Resp 16 Ht 5' 5.984[per previously height documentation per revi ew of EMR[ (1.68m) Wt 313 lb 4.8 oz (142.1kg) SpO2 97% BMI 50.59 kg/( m2). O2 Therapy: Room Air GENERAL: lethargic no distress, cooperat sameera, corpak+ LUNGS: Lungs clear to auscultationanteri jonas CARDIAC: Normal S1 and S2; no rubs, murm urs, or gallops ABDOMEN: Abdomen soft, non-tender, BS no rmal, No masses or organomegaly EXTREMITIES: con LE edema NEURO:moves all ext but strength 2/5, no facial asymmetry DATA: Diagnostic tests reviewed for today's vi sit: CBC, Coags, BMP, Mg, Phos Recent Labs 12/30/20 0034 12/29/20 1033 12/29/20 1032 12/28/20 0426 WBC 12.51* 14.60* -- 18.30* HB 12.5 12.6 -- 13.4 HCT 39.5 39.5 -- 41.0 PLT 308 302 -- 258 NA 137 -- 135* 139 K 3.6* -- 3.2* 3.0* CHLOR 106* -- 104 106* CO2 23 -- 23 23 BUN 27* -- 14 CREAT 1.97* -- 1.50* 0.79 GLUC 294* -- 146* 279* CA 8.8 -- 8.7 8.8 MG -- -- -- 2.1 Recent Labs 12/30/20 1250 12/30/20 0537 12/30/20 0018 12/29/20200512/29/20 1613 12/29/20 1108 12/29/20 0621 12/29/20 0032 PCGLUCOSE 124* 214* 294* 230* 152* 156* 180* 215* Assessment/Plan ? 1. Acute encephalopathy, uncertain etiol ogy:MRI findings consistent with PRES. Neurology and ID following. LP don e at [facility]. Await Cx results from CSF.??on vancomycin and Catrachito ephin 2. ?seizure disorder:-was On IV Keppra. EEG so far negative for seizures. BEM Dced. KEppra DCed 3. ?Hypokalemia:?Replace 4. hypomagnesemia:?Resolved 5. Leukocytosis- improving 6. IDDM type 2:?Add?DKA on admission to OSH. ?DKA now resolved. ?Patient takes U5 100 at home. Endocrino logy managing 7. RA: plaquenil currently on hold. 8. Anxiety with depression: holding cymb sean. ?Was on Im haldol, but this has been held.. 9. HTN: ?improved. ? Hypothyroidism: c/w home synthroid 10.RLS: requip held. 11- dysphagia- ST recommends pureed diet . RD recommends TF via BG at night till PO intake improves. 11. Morbid obesity with BMI >50 12. SANGEETHA-creatinine worsening? Etio. Pt w ith indwelling robb. UA on 12/27only showed pyuria. Not sure if she received contrast at [facility]. ? 2/2 acyclovir/vanc . Renal US neg. Urine sodium <20. Pt Does not appear volume depleted. ? Third spacing from low albumin. Will sta rt gentle fluids and get nephro input Plan for acute rehab at discharge SIGNATURE: Hugh Martinez MD PATIENT NAME: Soni Cramer DATE: December 30, 2020 TIME: 3:24 PM PAGER: 12-30-2020 Note HNO ID: [id number] [facility] Author: Dara Stack RN Service: Care Management Author Type: Registered Nurse Type: Care Mgt Progress Note Filed: 12/30/2020 2:41 PM Note Text: CARE MANAGEMENT PROGRESS NOTE SERVICE DATE: 12/30/2020 SERVICE TIME: 1435 LOS: 4 days [place]illiards of Choice Given: Yes Level of Care Discussed: Inpatient Rehab Facility Financial Disclosure Provided: Yes Financial Disclosure Comments: [facility]ett Provider List: Rehab Facility Provider list within the patient's reque sted geographic area shared with the patient/family: Yes within: 20 miles of zip code: [address] Quality and resource use metrics shared with the patient that are relevant to the patient's goals of care and treat ment preferences:: Yes Metrics: Potentially Preventable 30-day Post Discharge Readmission Rates;Incidence of Major Falls Telephoned and spoke with pt's sister Guille Mike and discussed acute rehab. She is agreeab le that pt will need therapy at discharge, [place] [facility] is first choice due to location will place referral. Emailed and left printed SvitStyle e list at bedside for sister. SIGNATURE: Dara Stack RN PATIENT NAME: Soni Cramer DATE: December 30, 2020 TIME: 2:35 PM PAGER/CONTACT #: [phone] 5 12-30-2020 Note HNO ID: [id number] [facility] Author: Brian Nava PharmD Service: Pharmacy Author Type: Pharmacist Type: Plan of Care Filed: 12/30/2020 12:37 PM Note Text: MEDICATION HISTORY AND MEDICATION RECONC ILIATION Patient Name:Scarlet Cramer : 1955 Source of history:Pharmacy records: [facility] ([phone]) and [facility] Medication Nonadherence Identified: No b arriers noted and Unable to assess The above information represents the bes t possible medication history: Yes Reconciliation completed? Yes All THERAPIST RADIATION me dications addressed by LIP Additional comments: Patient not able to provide medication Hx information at this time. Allergies: ALLERGIES Allergen Reactions - Bactrim [Sulfametho* Hives - Toradol [Ketorolac] Other: See Comment s Increase BP - Ciprofloxacin Rash - Flexeril [Cyclobenz* Rash - Metformin Other: See Comments Migraines Preferred Pharmacy: [facility] ) Current THERAPIST RADIATION Medications: Prior to Admission medications as of 12/17 12/07 1233 Medication Sig Last Dose Taking HYDROcodone-Acetaminophen (NORCO) 10-325 mg per tablet Take 1 tablet by mouth every 6 hours as needed for Pain. Yes oxybutynin XL (DITROPAN XL) 5 mg 24 hr t ablet Take 5 mg by mouth once daily. Yes hydrOXYchloroQUINE (PLAQUENIL) 200 mg ta blet Take 200 mg by mouth twice daily. Yes DULoxetine (CYMBALTA) 30 mg capsule Take 60 mg by mouth once daily. Yes carvedilol (COREG) 12.5 mg tablet Take 1 2.5 mg by mouth twice daily with meals. Yes budesonide (PULMICORT) 0.5 mg/2 mL nebul izer solution Use 0.5 mg via nebulizer twice daily. Yes insulin regular human, CONCENTRATED 500 UNIT/ML, (HUMULIN R U-500, CONC, KWIKPEN) 500 unit/mL (3 mL) inpn Inject subcutaneously. INJECT 75 UNITS SUBCUTANEOUSLY EVERY DAY WITH BREAKFAST AND DINNER 50 UNITS WITH LUNCH PLUS SLIDING SCALE LISTED Yes metoclopramide HCl (REGLAN) 5 mg tablet Take 5 mg by mouth. TAKE 1/2 (ONE HALF) TO 1 TABLET BY MOUTH 30 MINUTES BE FORE MEALS DIRECTED. DO NOT TAKE WHILE TAKING HALDOL. Yes levothyroxine (SYNTHROID) 75 mcg tablet Take 75 mcg by mouth once daily. Yes allopurinol (ZYLOPRIM) 100 mg tablet Fabby e 100 mg by mouth once daily. Yes rOPINIRole 1 mg tablet Take 1 mg by mout h daily at bedtime. Yes simvastatin 40 mg tablet Take 40 mg by m outh daily at bedtime. Yes pregabalin (LYRICA) 225 mg capsule Take 225 mg by mouth twice daily. Yes haloperidol (HALDOL) 1 mg tablet Take 1 mg by mouth three times daily as needed (nausea/vomiting). aspirin, enteric coated (ASPIRIN, ENTERI C COATED) 81 mg EC tablet Take 81 mg by mouth once daily. Brian Nava, PharmD December 30, 2020 12:34 PM [id number] 12-30-2020 Note HNO ID: [id number] [facility] Author: Maryellen Argueta PA-C Service: Neurology ICU Author Type: Physician Senior [id number] Developer Type: Plan of Care Filed: 12/30/2020 8:03 AM Note Text: Echo pending to rule out endocarditis. W ill follow up once completed. Maryellen Argueta PA-C December 30, 2020 8:03 AM [id number] 12-29-2020 Note HNO ID: [id number] [facility] Author: Hugh Martinez MD Service: Hospital Medicine Author Type: Physician Type: Progress Notes Filed: 12/29/2020 3:32 PM Note Text: INPATIENT PROGRESS NOTE CHIEF COMPLAINT: AMS INTERVAL HPI: Patient more awake and shanice rt today. Oriented x3. Complaints of pain in both legs PHYSICAL EXAM: BP 127/58 Pulse 72 Temp (Src) 98.4 ( Oral) Resp 18 Ht 5' 5.984[per previously height documentation per revi ew of EMR[ (1.68m) Wt 313 lb 4.8 oz (142.1kg) SpO2 95% BMI 50.59 kg/( m2). O2 Therapy: Room Air GENERAL: Alert, no distress, cooperative , he is very tired, getting continues EEG, NG+ LUNGS: Lungs clear to auscultation anter iorly CARDIAC: Normal S1 and S2; no rubs, murm urs, or gallops ABDOMEN: Abdomen soft, non-tender, BS no rmal, No masses or organomegaly EXTREMITIES: No edema NEURO: Cranial nerves II-XII intact 2/5 strength all extremities DATA: Diagnostic tests reviewed for today's vi sit: CBC, Coags, BMP, Mg, Phos Recent Labs 12/29/20 1033 12/29/20 1032 12/28/20 0426 12/27/20 1435 12/27/20 0636 12/27/20 0636 12/27/20 0023 12/27/20 0023 WBC 14.60* -- 18.30* -- -- 18.45* < > 20 .85* HB 12.6 -- 13.4 -- -- 14.2 < > 14.9 HCT 39.5 -- 41.0 -- -- 43.6 < > 45.6 PLT 302 -- 258 -- -- 278 < > 292 NA -- 135* 139 136 < > 139 < > 143 K -- 3.2* 3.0* 3.2* < > 4.0 < > 2.6* CHLOR -- 104 106* 106* < > 107* < > 118* CO2 -- 23 23 18* < > 18* 15.5* < > 14* BUN -- 21 14 12 < > 12 < > 8 CREAT -- 1.50* 0.79 0.75 < > 0.79 < > 0. 56* GLUC -- 146* 279* 319* < > 298* < > 127* CA -- 8.7 8.8 8.6 < > 8.7 < > 6.1* MG -- -- 2.1 -- -- 2.7* -- 1.3* < > = values in this interval not displa yed. Recent Labs 12/29/20 1108 12/29/20 0621 12/29/20 0032 12/28/20 1813 12/28/20 0552 12/28/20 0059 12/27/20 1742 12/27/20 1304 PCGLUCOSE 156* 180* 215* 303* 229* 278* 281* 246* Assessment/Plan 1. Acute encephalopathy, uncertain etiol ogy:MRI findings consistent with PRES. Neurology and ID following. LP don e at [facility]. Await Cx results from CSF. on vancomycin and Roce phin 2. seizure disorder:-On IV Keppra. EEG s o far negative for seizures. 3. Hypokalemia: Replace 4. hypomagnesemia: Resolved 5. Leukocytosis- improving 6. IDDM type 2: Add DKA on admission to OSH. ? ? DKA now resolved. Patient takes U5 100 at home. Endocrinol ogy managing 7. RA: plaquenil currently on hold. 8. Anxiety with depression: holding cymb sean. ?Was on Im haldol, but this has been held.. 9. HTN: ?improved. Hypothyroidism: c/w home synthroid 9.RLS: requip held. 10- dysphagia- ST recommends pureed diet . RD recommends TF via BG at night till PO intake improves. 11. Morbid obesity with BMI >50 12. SANGEETHA- cr elevated form 0.7 to 1.5. ? Etio. Pt with indwelling robb. UA on 12/27 showed pyuria. Not sure if she received contrast at [facility]. ? 2/2 acyclovir. Monitor cr. nephro consult if worsening. Monitor I?O SIGNATURE: Hugh Martinez MD PATIENT NAME: Soni Cramer DATE: December 29, 2020 TIME: 3:23 PM PAGER: 12-29-2020 Note HNO ID: [id number] [facility] Author: Jose Alejandro Martins MD Service: Endocrinology Author Type: Resident Type: Progress Notes Filed: 12/29/2020 10:13 AM Note Text: Attestation signed by Chung Floyd MD at 12/29/2020 10:49 AM Staff Physician's Review: I personally interviewed and examined th is patient. My findings are summarized as follows: History of Present Illness: History of D M type 2 with insulin resistance, on U500R insulin at home. Transferred from [facility] for encephalopathy, DKA. Tube feeds started 12/28 currently a t 25 cc per hour. She was started on Lantus 20 units BID and Regular insulin 16 units every 6 hours to cover tube feeds. Endocrinology is consulted to ass ist in diabetic management. Past Medical Hx: See below Past Surgical Hx: See below Social Hx: See below REVIEW OF SYSTEMS: GENERAL: no fever and no chills SKIN: no rashes, pruritis or dry skin CARDIAC: denies chest pain, heart palpit ations or orthopnea PULMONARY: stable PHYSICAL EXAM: BP 124/65 Pulse 84 Temp 37.1 ?C (98. 8 ?F) (Axillary) Resp 19 Ht 167.6 cm (5' 5.98) Wt (!) 142.1 kg (3 13 lb 4.8 oz) SpO2 96% BMI 50.59 kg/m? GENERAL: Well appearing, alert, in no ac john distress, well-hydrated, well nourished. SKIN: skin color, texture, turgor normal , no rashes or lesions. HEART: RRR without murmur, gallop, or ru bs. No ectopy PULMONARY: lungs clear to auscultation. No wheezing, rhonchi, rales EXTREMITIES: no edema, no calluses or ul cers present. Assesment: Impression: (Some elements may be copied from previous notes, which have been updated where appropriate, a nd all reflect current medical decision making from today.) 1. Type 2 diabetes mellitus with hypergl ycemia, with long-term current use of insulin (HCC). DKA resolved 2. Insulin resistance 3. Encephalopathy / MS changes Plans: 1. will plan to continue Lantus at curre nt dose and Regular insulin at current dose. Will likely need to ad just doses based on glucose monitoring as tube feed rates changes and or oral diet resumes. Chung Floyd MD December 29, 2020 10:18 AM Please note, the time of thi s note does not reflect the time I saw this patient today, but the time of this documentatio n. ENDOCRINOLOGY PROGRESS NOTE SERVICE DATE: 12/29/2020 SERVICE TIME: 9:58 AM REASON FOR CONSULT: Diabetes management REQUESTING PHYSICIAN: No referring provi andra defined for this encounter. Subjective HISTORY OF PRESENT ILLNESS: Ms. Cramer is a 65 year old female with past medical history of Type II DM, CHF, Afib , Seizure disorder , Coronary Artery Disease , Obstructive Sleep Apnea who presents from [facility] for evaluation of encephalopath y. MRI findings were consistent with PRES. Endocrinology consulted for m anagement of DM/DKA. Interval events: Lethargic today BG this am 180 PAST MEDICAL HISTORY Diagnosis Date - Congestive heart failure (HCC) - Coronary artery disease - Diarrhea - Diarrhea - Hypothyroidism - PMH - PAST MEDICAL HISTORY OF high cholestrol - PMH - PAST MEDICAL HISTORY OF neck injury - Seizures (HCC) 12/26/2020 - Type II or unspecified type diabetes m ellitus without mention of complication, not stated as uncontrolled - Unspecified essential hypertension PAST SURGICAL HISTORY Procedure Laterality Date - APPENDECTOMY 1973 - COLONOSCOP W/ OR W/O BRSH SPEC 06/19/20 13 Colonoscopy - COLONOSCOPY W/BX 05/27/07 - EGD W/O OR W/BRUSH/WASH 06/19/2013 EGD - EGD W/O OR W/BRUSH/WASH 02/17/15 EGD - REMOVAL GALLBLADDER Cholecystectomy FAMILY HISTORY Problem Relation Age of Onset - Diabetes Mother - other (Crohn's disease) Mother - other (Crohn's disease) Son - other (Bone cancer) Father - Diabetes Maternal Grandmother Social History Tobacco Use - Smoking status: Never Smoker - Smokeless tobacco: Never Used Substance Use Topics - Alcohol use: No - Drug use: No Current Facility-Administered Medication s Medication Dose Route Frequency Provider Last Rate Last Admin - alteplase 2 mg catheter clearance solu tion (CATHFLO) 2 mg INTRALUMINAL ONCE Hugh Martinez MD - insulin regular human injection (short acting) (NovoLIN R,HumuLIN R) SUBCUTANEOUS q 6 H João Pearl 2 Units at 12/29/20 0600 - hydrALAZINE 25 mg tab(s) (APRESOLINE) 25 mg NASOGASTRIC q 8 H Huhg Martinez MD 25 mg at 12/29/20 0600 - carvedilol 12.5 mg tab(s) (COREG) 12.5 mg NASOGASTRIC BID w MEALS Hugh Martinez MD 12.5 mg at 1 0730 - pill senior trainer (patient-specific) 1 Each Miscell. (Med.Supl.;Non-Drugs) PRN Hugh Martinez MD - insulin glargine 20 Units pen (long ac ting) (LANTUS SOLOSTAR, BASAGLAR KWIKPEN) 20 Units SUBCUTANEOUS q 12 H 12 p/12a Chung Floyd MD 20 Units at 12/29/20 0120 - insulin regular human 1 (more content not included)... 12-28-2020 Note HNO ID: [id number] [facility] Author: Hugh Martinez MD Service: Hospital Medicine Author Type: Physician Type: Progress Notes Filed: 12/28/2020 4:33 PM Note Text: INPATIENT PROGRESS NOTE CHIEF COMPLAINT: Confusion INTERVAL HPI: Awake alert. Oriented to s elf. Thought she was at [facility]. Denies any pain anywhere. Remains afebrile. Getting continuous EEG PHYSICAL EXAM: BP 176/92 Pulse 107 Temp (Src) 98.8 (Oral) Resp 22 Ht 5' 5.984[per previously height documentati on per review of EMR[ (1.68m) Wt 313 lb 4.8 oz (142.1kg) SpO2 95% BMI 50.59 kg/(m2). O2 Therapy: Room Air GENERAL: Lethargic but able to answer so me questions, no distress, cooperative, very obese LUNGS: Lungs clear to auscultation, ante riorly CARDIAC: Normal S1 and S2; no rubs, murm urs, or gallops ABDOMEN: Abdomen soft, non-tender, BS no rmal, No masses or organomegaly EXTREMITIES: No edema NEURO: no facial asymmetry, speech slow but clear, strength 2-3/5 all ext DATA: Diagnostic tests reviewed for today's vi sit: CBC, Coags, BMP, Mg, Phos Recent Labs 12/28/20 0426 12/27/20 1435 12/27/20 0636 12/27/20 0023 12/27/20 0023 WBC 18.30* -- 18.45* -- 20.85* HB 13.4 -- 14.2 -- 14.9 HCT 41.0 -- 43.6 -- 45.6 PLT 258 -- 278 -- 292 NA 139 136 139 < > 143 K 3.0* 3.2* 4.0 < > 2.6* CHLOR 106* 106* 107* < > 118* CO2 23 18* 18* 15.5* < > 14* BUN 14 12 12 < > 8 CREAT 0.79 0.75 0.79 < > 0.56* GLUC 279* 319* 298* < > 127* CA 8.8 8.6 8.7 < > 6.1* MG 2.1 -- 2.7* -- 1.3* < > = values in this interval not displa yed. Recent Labs 12/28/20 0552 12/28/20 0059 12/27/20 1742 12/27/20 1304 12/27/20 0645 12/26/20 2230 PCGLUCOSE 229* 278* 281* 246* 249* 143* Assessment/Plan 1. Acute encephalopathy, uncertain etiol ogy:MRI findings consistent with PRES. Neurology and ID following. LP don e at [facility]. Await Cx results from CSF. on vancomycin and Roce phin 2. seizure disorder:-On IV Keppra. Will need to so far negative for seizures. 3. Hypokalemia: Replace 4. hypomagnesemia: Replaced 5. IDDM type 2: Add DKA on admission to OSH. K now resolved. Patient takes U5 100 at home. Will consult endoc rinology for management. 6. RA: plaquenil held. 7. Anxiety with depression: holding cymb sean. Was on Im haldol, but this has been held.. 8. HTN: Poorly controlled. Restart home Coreg. Add hydralazine scheduled. Monitor blood pressure closel y. 9. Hypothyroidism: home synthroid held. Can resume when corpak placed. RLS: requip held. Currently on tube feeds via CorPak. Will consult speech therapy evaluation. SIGNATURE: Hugh Martinez MD PATIENT NAME: Soni Cramer DATE: December 28, 2020 TIME: 4:17 PM PAGER: 12-28-2020 Note HNO ID: [id number] [facility] Author: Chung Floyd MD Service: Endocrinology Author Type: Physician Type: Plan of Care Filed: 12/28/2020 1:56 PM Note Text: BRIEF CONSULT NOTE SERVICE DATE: 12/28/2020 SERVICE TIME: 13:45 HPI: Soni is a 65 year old female wit h a history of insulin resistant type 2 diabetes, on U500R insulin at [facility]. She was admitted with MS changes, as well as DKA / (+) ketones. S he is currently on Humalog scale only, but is starting continuous tube fe eds right now (I spoke with floor nurse). Glucose log as below: Component B-Hydroxybutyrate Glucose, Poi nt of Care Latest Ref Rng AND Units 0.02 - 0.27 mmo l/L 74 - 99 mg/dL 12/27/2020 6:36 AM >2.00 (H) 12/27/2020 6:45 AM 249 (A) 12/27/2020 1:04 PM 246 (A) 12/27/2020 5:42 PM 281 (A) 12/28/2020 12:59 AM 278 (A) 12/28/2020 5:52 AM 229 (A) Anion gap is normal (10) on AM labs toda y RECOMMENDATIONS/PLAN 1. Type 2 DM with hyperglycemia 2. DKA - apparently resolved 3. MS changes - workup per med team and neuro 4. Malnutrition with initiation of brianda nuous NG tube feeds. 5. History of severe insulin resistance Will plan to start Lantus 24 units Q24H now, as well as regular insulin 8 units Q6H along with scale 2 coverage of regular insulin every 6 hours while on tube feeds. Full consult to follow in AM. This plan was discussed with her nurse SIGNATURE: Chung Floyd MD PATIENT NA ME: Soni Cramer DATE: December 28, 2020 TIME: 1:49 PM 12-28-2020 Note HNO ID: [id number] [facility] Author: Dwayne Huertas RN Service: Care Management Author Type: Registered Nurse Type: Care Mgt Progress Note Filed: 12/28/2020 1:55 PM Note Text: CARE MANAGEMENT PROGRESS NOTE SERVICE DATE: 12/28/2020 SERVICE TIME: 1338 LOS: 2 days . Epic reviewed. DC plan TBD. Will likely need PT/OT evals but per MD, does not feel the pt is ready for that yet at this time. SIGNATURE: Dwayne Huertas RN PATIENT NAME: Soni Cramer DATE: December 28, 2020 TIME: 1:38 PM PAGER/CONTACT #: 12-27-2020 Note HNO ID: [id number] [facility] Author: Dara Stack RN Service: Care Management Author Type: Registered Nurse Type: Care Mgt Initial Assessment Filed: 12/27/2020 3:10 PM Note Text: CARE MANAGEMENT: ASSESSMENT AND DISCHARG E PLAN SERVICE DATE: December 27, 2020 SERVICE TIME: 1100 PRIMARY CARE PHYSICIAN: You Parks MD ADMISSION STATUS: Inpatient Needs Prior to Discharge: To Be Determin ed;Accepting Facility;Bed Availability;OT/PT Evaluation;Facility o r Agency Choices;Precertification;Insurance Autho rization [place] [facility] [place]Waste Paper Hammermill Operator Stated Goals: To have reduction in symptoms;To improve my functional status;To return h ome to life as it was;To be cured/healed Health Insurance: Medicare;Stephane (ramana moyer supplement) Health Issues Impacting Discharge Plan: Uncontrolled Uncontrolled: seizures,delirium Last Discharge Date: 02/17/15 Is this Within the Past 30 days? Last discharge within 30 days: No Advance Directive: Current Advance Directive: None Mapping Supervisor Attempted to Assist with AD Completion: No Unable to Assist Due To:: Delirium Action: Education Provided (spoke to don Wallis) Health LiteracyHow often do you need to have someone help you when you read instructions, pamphlets, or other w ritten material from your doctor or pharmacy? : 2 - Rarely How confident are you filling out medica l forms by yourself?: 2 - Quite a bit If Patient scores > 3 on either question , the following interventions were put into place:: Patient did not score > 3 on either question. Baseline Mental Status Prior to this Illness what was the patie nt's Baseline Mental Status?: Alert AND Oriented Prior to this illness, has anyone descri bed the patient having any of the following behaviors?: Not Applicable Relationship of the informant to the pat ient:: Other: See Comment Name of Informant: : Sister-Linda banuelos Functional Status: Independent;Needs Ass istance Does Patient Currently Receive Any Commu nity Services or Home Care?: None Equipment Prior to Admission: Walker;Tub bench/chair;Glucometer Has the Patient Been in a Skilled Nursin g Facility in the Past 30 days?: No SOCIAL: Living Arrangements: Home Lives With: Alone Financial Resources: Retired Primary Contact: Extended Emergency Cont act Information Primary Emergency Contact: Linda Mike [place] Relation: Sister Supportive Patient Contact:: Yes Contact Resources: Family Family Name/Phone: son and sister Caregiver AssessmentCaregiver is ready, willing and able to meet the patient's needs as recommended by the in sabine-professional team:: Yes Does the patient have an acute stroke di agnosis, or has the patient had a stroke during this admission?: Unable to assess at this time Patient's transition needs and plan for meeting these needs: TBD, too medically complex right now, will need P T/OT evaluation Patient's perception of need for this ad mission: seizures, delirium Medication Adherance I am convinced of the importance of my p rescription medication: 0 - Agree Completely I worry that my prescription medication will do more harm than good to me : 0 - Disagree Completely I feel financially burdened by my out-of -pocket expenses for my prescription medication:: 0 - Disagree C ompletely Risk Score: 0 Patient is categorized as: Low risk < 2 Are you interested in bedside delivery o f your medications? No Is Patient Psychosocially Complex?: No ASSESSMENT AND PLAN: Medical Needs: Medical Needs: Obesity;Two or more chron ic diseases Psychosocial Needs: Psychosocial Needs: None FREEDOM OF CHOICE EXPLAINED: POTENTIAL TRANSITION PLANS Home;Home Care;Home OT/PT;Rehab Facility ;Chcf Facility/Intermediate Care Facility;To B e Determined Pt is moaning, not opening eyes, not res ponding to her name, getting ready to be transported to MRI. Telephoned and spoke with pt's sister Linda Mike [phone] to complete a ssessment. Pt lives at home alone, does not drive, either her son or her si ster Linda transport her to [employer],grocery.bank,etc. Pt lives in a one story home has DMe+, has walker, but doesn't use it. Linda fernandez does not have nephews phone number, advised he is NOK, since pt does not have HCPOA. Linda has started assisting pt with paying her bills. Advi sed she needs to bring in pt's insurance cards since she is listed as s elf-pay. Linda fernandez will probably come in Saturday to see pt. Pt wi ll need therapy evals to help determine discharge plan. Discussed SNF, acute rehab, and HHC needs to be determined. SIGNATURE: Dara Stack RN PATIENT NAME: Soni Cramer DATE: December 27, 2020 TIME: 3:03 PM PAGER/CONTACT #: [phone] 12-27-2020 Note HNO ID: [id number] [facility] Author: Chani Gusman cary Service: Pharmacy Author Type: Pharmacist Type: Plan of Care Filed: 12/27/2020 3:16 PM Note Text: PHARMACY MEDICATION REVIEW Patient Name: Soni Cramer : 1955 The following medications were updated w ithin the THERAPIST RADIATION medication list: Medications ADDED to THERAPIST RADIATION medication list ? Hydroxychloroquine 200 mg bid ? Carvedilol 12.5 mg bid ? Budesonide 0.5mg/2mL nebulizer solutio n bid ? Oxybutynin ER 5 mg daily ? Duloxetine 30mg capsules, two capsules daily ? Metoclopramide 5mg 1/2 to 1 tablets 30 minutes before meals as directed ? Humulin u-500 kwikpen - 75 units daily with breakfast and 50 units with lunch plus sliding scale as directed Medications CHANGED on THERAPIST RADIATION medication li st ? lyrica dose/strength updated to 225 mg bid ? norco dose/strength updated to 10/325m g q6h prn ? Haloperidol dose/strength/frequency up dated to 1 mg three times daily as needed for nausea/vomiting ? Levothyroxine dose/strength updated to 75 mcg daily Medications REMOVED from THERAPIST RADIATION medication list ? Lamotrigine 100 mg bid - no recent ajz l history (since 05/30/20) ? methdone 5 mg - no fill history per OA RRs ? morphine ir 15 mg - no fill history pe r OARRs ? Montelukast - no fill history ? tresiba flextouch - no fill hx ? naloxegol 25 mg ? Omeprazole 40 mg ? Ondansetron 8mg ? Promethazine 25mg ? Valsartan 80 mg Additional comments: Medication history obtained from [facility] and [facility] pharmacy fill records. Changes to nandini young's medication list detailed above. The below information represents the bes t possible medication history: Yes - unable to confirm medication list with patient due to encephalopathy however, called pharmacy and confirmed f ill history in [facility] Medication history completed by: Pharmac ist: Chani Gusman [facility] Source of history: Pharmacy records: [facility] , [facility] records and [facility] Medication nonadherence identified: Unab le to assess Reconciliation completed: No, Indicate a ction taken: notified LIP of updates made to medication list Patient interested in Bedside Delivery S ervices or using CC OP Pharmacy at discharge? Unable to assess Preferred outpatient pharmacy: e- [facility] [address] [place] [phone] [facility] [phone] [facility] Allergies: Bactrim [Sulfametho* Hives Toradol [Ketorolac] Other: See Comments Comment:Increase BP Ciprofloxacin Rash Flexeril [Cyclobenz* Rash Metformin Other: See Comments Comment:Migraines Prior to Admission medications as of 12/17 0919 Medication Sig Last Dose Taking HYDROcodone-Acetaminophen (NORCO) 10-325 mg per tablet Take 1 tablet by mouth every 6 hours as needed for Pain. Yes oxybutynin XL (DITROPAN XL) 5 mg 24 hr t ablet Take 5 mg by mouth once daily. Yes hydrOXYchloroQUINE (PLAQUENIL) 200 mg ta blet Take 200 mg by mouth twice daily. Yes DULoxetine (CYMBALTA) 30 mg capsule Take 60 mg by mouth once daily. Yes carvedilol (COREG) 12.5 mg tablet Take 1 2.5 mg by mouth twice daily with meals. Yes budesonide (PULMICORT) 0.5 mg/2 mL nebul izer solution Use 0.5 mg via nebulizer twice daily. Yes insulin regular human, CONCENTRATED 500 UNIT/ML, (HUMULIN R U-500, CONC, KWIKPEN) 500 unit/mL (3 mL) inpn Inject subcutaneously. INJECT 75 UNITS SUBCUTANEOUSLY EVERY DAY WITH BREAKFAST AND DINNER 50 UNITS WITH LUNCH PLUS SLIDING SCALE LISTED Yes metoclopramide HCl (REGLAN) 5 mg tablet Take 5 mg by mouth. TAKE 1/2 (ONE HALF) TO 1 TABLET BY MOUTH 30 MINUTES BE FORE MEALS DIRECTED. DO NOT TAKE WHILE TAKING HALDOL. Yes levothyroxine (SYNTHROID) 75 mcg tablet Take 75 mcg by mouth once daily. Yes allopurinol (ZYLOPRIM) 100 mg tablet Fabby e 100 mg by mouth once daily. Yes rOPINIRole 1 mg tablet Take 1 mg by mout h daily at bedtime. Yes simvastatin 40 mg tablet Take 40 mg by m outh daily at bedtime. Yes pregabalin (LYRICA) 225 mg capsule Take 225 mg by mouth twice daily. Yes haloperidol (HALDOL) 1 mg tablet Take 1 mg by mouth three times daily as needed (nausea/vomiting). aspirin, enteric coated (ASPIRIN, ENTERI C COATED) 81 mg EC tablet Take 81 mg by mouth once daily. Chani Gusman [facility] 12/27/2020 Ext: [phone] 12-27-2020 Note HNO ID: [id number] [facility] Author: Opal Dhillon DO Service: Hospital Medicine Author Type: Physician Type: Progress Notes Filed: 12/27/2020 12:29 PM Note Text: DEPARTMENT OF HOSPITAL MEDICINE PROGRESS NOTE SERVICE DATE: 12/27/2020 SERVICE TIME: 9:04 AM Hospital Medicine/Primary Attending: William Dhillon DO NIGHT AND WEEKEND COVERAGE: [place] COVERAGE: From 7am - 7pm, please c all [phone] After 7pm, please call cross cover pager #[phone] Subjective INTERVAL HPI: Pt seen and examined. Epic reviewed. Patient grimaces with sternal rub. Will not speak or follow co mmands. Moaning and with repetitive side to side jaw movements. Tele: ST 116 with occ pvc MEDICATIONS: Reviewed Objective PHYSICAL EXAM: BP 166/77 Pulse 100 Temp (Src) 98.1 (Axillary) Resp 18 Wt 313 lb 4.8 oz (142.1kg) SpO2 95% O2 Therapy: Room Air Physical Exam Performed GENERAL: Obese, Does not respond to verb al cues HEAD/SINUSES: No significant findings EYES: anisocoria with responsive pupils OROPHARYNX: oral mucosa dry LUNGS: Lungs clear to auscultation, Good diaphragmatic excursion CARDIAC: heart tachy reg ABDOMEN: Abdomen soft, non-tender, BS no rmal, No masses or organomegaly EXTREMITIES: 1+ edema bilat NEURO: not following commands, responds to painful stim. rhythmic motion of jaw (per nursing present when she arr ived from [facility]) Lines, Drains, and Airways Line Peripheral Assessment Short Right Hand 2 2 Gauge -- days Central Line Double Lumen 12/26/20 Perip herally Inserted (PICC) Left Arm 1 day Drain Indwelling Urinary Catheter 12/26/20 2300 Admission to Hospital Robb <1 day Reviewed lines and needs to be continued : REASONS: Intravenous antibiotics, Difficulty in obtaining/teressa ntaining access and Telemetry DATA: Diagnostic tests reviewed for today's vi sit: Most recent labs and imaging results. Assessment/Plan 1. Acute encephalopathy, uncertain etiol ogy: Had EEG at OSH (unable to locate results, will have them requested ). Was unable to have MRI at OSH due to agitation. Attempting again here. Neuro consult as well as ID. On empiric antibx. Will need BEM to rule ou t seizure activity. Had LP at OSH. Blood cultures were NTD at OSH. c d iff and stool cultures neg. Urine culture neg. Urine sent for legion solomon and had strep pneumo testing done. CSF cultures were neg to date. Wit h increasing agitation in ICU was given ativan and haldol. All sedatin g medications were eventually held. 2. Seizure disorder: uncertainty of telly kthrough seizures. On cefepime. Consider alternative antibiotic. ID on c onsult. To have BEM placed. Per notes from OSH. Appears to have failed a ttempt at EEG and MRI. Ativan as needed for seizure. Neuro on consult. 3. Hypokalemia: repleted and rechecked w ith improvement. 4. Hypomagnesemia: repleted and recheck with improvement. 5. IDDM type 2: on tresiba at home. Was in DKA on admission to OSH. Today with NAGMA. Ketones +. Will contin ue with fluids and monitor sugars as well as bicarb. VBG compensated. 6. RA: plaquenil held. 7. Anxiety with depression: holding cymb sean. Was on Im haldol, but this has been held. Pending MRI results and n euro input may need psych input. 8. HTN: Poorly controlled. Will add hydr alazine prn. Will need corpak and meds to help with BP control. 9. Hypothyroidism: home synthroid held. Can resume when corpak placed. 10. RLS: requip held. Medication and Non-Pharmacologic VTE Pro phylaxis/Anticoagulants Anticoagulant AND Antiplatelet Medicatio ns (From admission, onward) Comment Start Dose Route Frequency Last Action O rdered Stop 12/26/202329 aspirin, enteric coated 81 mg tab(s) 81 mg ORAL DAILY Ordered 12/26/202312 - - 12/26/20 233 heparin 5,000 Units inject ion (Medical Risk Categories) 5,000 Units SUBCUTANEOUS EVERY 12 HOURS Given, 12/27 0812/26/202312 -- 12/26/202314 activity - mobilize patien t (ut,me) VTE Prophylaxis: VTE prophylaxis appropr iate Disposition: To be determined Plan of care discussed with: Provider, R N, Patient SIGNATURE: Opal Dhillon DO PATIENT NAME: Soni Cramer DATE: December 27, 2020 TIME: 9:04 AM etx [id number] 12-27-2020 Note HNO ID: [id number] [facility] Author: Rachael Hurst RPh Service: Pharmacy Author Type: Pharmacist Type: Progress Notes Filed: 12/27/2020 3:51 AM Note Text: Pharmacy Consult Agreement: Gerald edwards Patient Name: Soni Cramer Service Date: 12/27/2020 Service Time: 3:50 AM The following changes have been made to the patient's medication therapy as part of the pharmacy consult agreemen t. Current Therapy: Acyclovir 590 mg IV q 8 h New Therapy: Acyclovir 600mg IV q 8 h Thank you for allowing me to participate in the care for this patient. Signature: Rachael Hurst [facility] Pager/Extension: [phone] 11-18-2020 Note . [facility] MICRO - Microbiology ([place]) PROCEDURE: Urine Culture [*1] SOURCE: Urine, Clean Catch BODY SITE: COLLECTED DATE/TIME: 11/17/19 14:39 EDT RECEIVED DATE/TIME: 11/17/2020 15:20 EDT START DATE/TIME: 11/17/2020 15:20 EDT FREE TEXT SOURCE: FINAL REPORTS Final Report [] Verified Date/Time/Personnel: 11/18/2020 1 1:31 EDT 10,000 - 50,000 cfu/ml Multiple bacterial morphotypes present. Probable Contamination. Suggest recollec tion if clinically indicated. Performing Locations *1: This test was performed at: [facility], [address] [place] [address], [id number] [place] [address] Comment on above: Performed By: #### [facility], GFR #### [address] [address] 10-29-2020 Note . [facility] MICRO - Microbiology ([place]) PROCEDURE: Urine Culture [*1] SOURCE: Urine BODY SITE: COLLECTED DATE/TIME: 10/27/19 22:48 EST RECEIVED DATE/TIME: 10/27/2020 16:16 EST START DATE/TIME: 10/27/2020 16:16 EST MADDIE E TEXT SOURCE: FINAL REPORTS Final Report [] Verified Date/Time/Personnel: 10/29/2020 08:28 EST >100,000 organisms per mL Escherichia co li PRELIMINARY REPORTS Preliminary Report [] Verified Date/Time/Personnel: 10/28/2020 11:11 EST >100,000 organisms per mL Escherichia co li RICKY to follow SUSCEPTIBILITY RESULTS Escherichia coli Antibiotic RICKY Dilut RICKY Inter Ampicillin >16 Resistant Ampicillin/ >16/8 Resistant Sulbactam Aztreonam <=4 Susceptible Cefazolin 8 Susceptible Ciprofloxacin <=0.25 Susceptible Ertapenem <=0.5 Susceptible Gentamicin <=2 Susceptible Imipenem <=1 Susceptible Levofloxacin <=0.5 Susceptible Meropenem <=1 Susceptible Nitrofurantoin <=32 Susceptible Piperacillin/ <=8 Susceptible Tazobactam Trimethoprim/ <=0.5/9.5 Susceptible Sulfa Performing Locations *1: This test was performed at: [address], [address] [place] [address] Comment on above: Performed By: #### BMP, GFR #### [address] [address] 02-26-2020 Note . [facility] MICRO - Microbiology ([place]) PROCEDURE: Urine Culture [*1] SOURCE: Urine, Clean Catch BODY SITE: COLLECTED DATE/TIME: 02/24/2020 22:39 EDT RECEIVED DATE/TIME: 02/25/2020 15:49 EDT START DATE/TIME: 02/25/2020 15:49 EDT FREE TEXT SOURCE: FINAL REPORTS Final Report [] Verified Date/Time/Personnel: 02/26/2020 14:46 EDT 10,000 - 50,000 cfu/ml Multiple bacterial morphotypes present. Probable Contamination. Suggest recollec tion if clinically indicated. Performing Locations *1: This test was performed at: [address], [address] [place] [address] Comment on above: Performed By: #### BMP, GFR #### [address] [address] Evaluation note Diagnosis Dehydration- Primary Nausea Nausea alone Hypoglycemia Hypoglycemia, unspecified documented in this encounterSUMMA Work Phone: Hospital Discharge instructionsAttachmentsThe following attachments cannot be sent through Care Everywhere.Nausea and Vomiting (Swazi)Hypoglycemia in Diabetes: General Info (Swazi)Dehydration (Swazi) documented in this encounterSUMMA Work Phone: Summary Purpose Family History No Family History Records FoundNo Family History Records FoundNo Family History Records FoundNo Family History Records FoundNo Family History Records FoundNo Family History Records Found Advance Directives No Advanced Directives Records Found Documents on File Type Date Recorded 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 on Advance Directive(s) 12/26/2020 6:28 PM Documents on File Type Date 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 on ACP-Advance Directive ACP-Power of Post Partum Nurse Additional Source Comments INFORMATION SOURCE (unrecognized section and content) DATE CREATED AUTHOR AUTHOR'S ORGANIZ ATION 02/11/2018 [facility] DATE CREATED AUTHOR AUTHOR'S ORGANIZATIO N 09/03/2018 [facility] DATE CREATED AUTHOR AUTHOR'S ORGANIZATIO N 12/28/2020 [facility] DATE CREATED AUTHOR AUTHOR'S ORGANIZATIO N 01/11/2021 [facility] ([place]) DATE CREATED AUTHOR AUTHOR'S ORGANIZATIO N 01/13/2021 [facility] DATE CREATED AUTHOR AUTHOR'S ORGANIZATIO N 01/16/2021 [facility] Source Comments (unrecognized section an d content) In the event this information is protect ed by the [facility] Confidentiality of Alcohol and Drug Abuse Patient Records regulatio ns: This information has been disclosed to you from records protected by Federal co nfidentiality rules ( The Federal rules restrict any use of the information to criminally investigate or prosecute any alcohol or drug abuse patient. [facility] the event this inform ation is protected by the Federal Confidentiality of Alcohol and Drug Abus e Patient Records regulations: This information has been disclosed to you fr records protected by Federal confidentiality rules ( The Federal rules restrict any use of the information to criminally inv estigate or prosecute any alcohol or drug abuse patient. [facility] Clinic[facility] the event this information is protected by the Federal Confidentiality of Alcohol and Drug Abuse Patient Records regulations: This information has been d isclosed to you from records protected by Federal confidentiality rules (42 CFR Pa rt 2). The Federal rules prohibit you from making any further disclosure of this in formation unless further disclosure is expressly permitted by the written conse nt of the person to whom it pertains or as otherwise permitted by 42 CFR Part 2. A general authorization for the release of medical or other information is NOT suff icient for this purpose. The Federal rules restrict any use of the information to c riminally investigate or prosecute any alcohol or drug abuse patient. [facility] the event this information is protected by the Federal Confidentiality of Alcohol and Drug Abuse Patient Records regulations: This inform ation has been disclosed to you from records protected by Federal confidentiality rul es ( The Federal rules restrict any use of the in formation to criminally investigate or prosecute any alcohol or drug abuse kennedy ent. [facility] the event this information is protected by the Federal Confidentiality of Alcohol and Drug Abuse Patient Records regulations: This information has been disclosed to you from records protected by Federal confid entiality rules ( The Federal rules restrict any use of th e information to criminally investigate or prosecute any alcohol or drug abuse kennedy ent. [facility] Reason for Visit (unrecognized section a nd content) Reason Comments Hypoglycemia Nausea Emesis Ordered Prescriptions (unrecognized sect ion and content) Prescription Sig Dispensed Refills Start Date End Date promethazine Take 1 tablet by mouth 20 tablet 0 01/14/2021 01/21/2021 (PHENERGAN) 25 MG every 6 hours as tablet needed for Nausea WARNING: May cause drowsiness. May impair ability to operate vehicles or machinery. Do not use in combination with alcohol. Scheduled Active and Recently Administered Medicat ions (unrecognized section and content) Medication Order 01/13/2021 01/14/2021 01/15/2021 0.9 % sodium chloride bolus (COMPLETED) 2007 (New Bag - Provider: Columba Rose RN)2122 (Stopped - Provider: Columba Rose RN) 1,000 mL (6.89 mL/kg), Intravenous, at 2 ,000 mL/hr, Administer over 0.5 Hours, ONCE, On 01/14/21 at 1957, For 1 dose promethazine (PHENERGAN) injection 12.5 mg (COMPLETED) 1999 (Given - Provider: Columba Rose, ALMA) 12.5 mg, Intravenous, ONCE, On Sat at 1957, For 1 dose, Recommended route is IM. For IV administration, dilute to 10ml with normal saline. Must be administered over at least 10 minutes. FOR RECORDS PERTAINING TO PATIENTS WHO ARE OR HAVE BEEN ENROLLED IN A CHEMICAL DEPENDENCY/SUBSTANCE ABUSE PROGRAM, SOME INFORMATION MAY BE OMITTED. This clinical summary was aggregated from multiple sources. Caution should be exercised in using it in the provision of clinical care. This summary normalizes information from multiple sources, and as a consequence, information in this document may materially change the coding, format and clinical context of patient data. In addition, data may be omitted in some cases. CLINICAL DECISIONS SHOULD BE BASED ON THE PRIMARY CLINICAL RECORDS. [facility] AttributorNorthern [facility]. provides no warranty or guarantee of the accuracy or completeness of information in this document.
== END 2020-08-31 12:16 | disposition home or self-care (01) | DRG 638 ==
LOC: ED 22:30 → PCU 23:25
PROVIDERS: Admitting Provider Hospitalist; Emergency Provider Emergency Medicine; PCP Family Medicine; Visit Provider Internal Medicine
DX: E11.649 Type 2 diabetes mellitus with hypoglycemia without coma (principal); I13.0 Hypertensive heart and chronic kidney disease with heart failure and stage 1 through stage 4 chronic kidney disease, or unspecified chronic kidney disease; I50.32 Chronic diastolic (congestive) heart failure; Z68.43 Body mass index [BMI] 50.0-59.9, adult; I16.1 Hypertensive emergency; D50.9 Iron deficiency anemia, unspecified; E03.9 Hypothyroidism, unspecified; E11.22 Type 2 diabetes mellitus with diabetic chronic kidney disease; E11.621 Type 2 diabetes mellitus with foot ulcer; E11.69 Type 2 diabetes mellitus with other specified complication; E66.01 Morbid (severe) obesity due to excess calories; E78.5 Hyperlipidemia, unspecified; F32.9 Major depressive disorder, single episode, unspecified; G25.81 Restless legs syndrome; G40.909 Epilepsy, unspecified, not intractable, without status epilepticus; G89.4 Chronic pain syndrome; I25.10 Atherosclerotic heart disease of native coronary artery without angina pectoris; I25.2 Old myocardial infarction; I48.0 Paroxysmal atrial fibrillation; K21.9 Gastro-esophageal reflux disease without esophagitis; M06.9 Rheumatoid arthritis, unspecified; M10.9 Gout, unspecified; M79.7 Fibromyalgia; N18.30 Chronic kidney disease, stage 3 unspecified; L97.512 Non-pressure chronic ulcer of other part of right foot with fat layer exposed; E11.43 Type 2 diabetes mellitus with diabetic autonomic (poly)neuropathy; K31.84 Gastroparesis; E11.42 Type 2 diabetes mellitus with diabetic polyneuropathy; M20.41 Other hammer toe(s) (acquired), right foot; Z87.19 Personal history of other diseases of the digestive system; Z79.899 Other long term (current) drug therapy; Z79.82 Long term (current) use of aspirin; Z79.4 Long term (current) use of insulin
CPT/HCPCS: 36415; 71045; 71275; 80048; 82962; 83605; 83735; 83880; 84443; 84484; 85025; 87426; 93005; 93971; 96361; 96372; 96374; 96375; 96376; 97802; 99218; 99285; J7030; Q9967; A4216; G0378; J1940; J2354; J2405; J7799

== ENCOUNTER → 2020-09-16 11:36 | Outpatient (CLI) | payer MEDICARE, MEDICAID, SELFPAY ==
[2020-08-30 00:23] VITALS: BMI 51.2
[2020-09-16 12:21] LABS: Allen Test Positive; Base Excess 3 mmol/L (-2 to +2); Blood Gas Specimen Type ART; O2 Delivery Device Room Air; PO2 32 mmHG (75-100); SITE R Radial; SO2 57 % (95-99); Total Carbon Dioxide 31 mmol/L; pCO2 53.2 mmHg (35-45); pH 7.35 (7.35-7.45)
[2020-09-16 13:10] LABS: BNP,B-Type NATRIURETIC PEPTIDE 119.1 pg/mL (0-100)
--- NOTE | 2020-09-16 13:14 | CPS ---
critical ABG results (po2 32.2) given to Nurse Clemencia.
== END ==
PROVIDERS: PCP Family Medicine; Referring Provider Internal Medicine Pulmonary Disease; Visit Provider Internal Medicine Pulmonary Disease
DX: I50.9 Heart failure, unspecified (principal); R06.02 Shortness of breath
CPT/HCPCS: 36415; 36600; 82803; 83880

== ENCOUNTER → 2020-09-26 08:17 | Outpatient (CLI) | payer MEDICARE, MEDICAID, SELFPAY ==
[2020-08-30 00:23] VITALS: BMI 51.2
--- NOTE | 2020-09-26 08:30 | RAD_ITS ---
PROCEDURE: Sniff test. DATE OF EXAMINATION: 09/26/2020. INDICATION: Female, 65 years old. Dyspnea. FLUOROSCOPY TIME (if supplied): (12 seconds) minutes/seconds. 2 images were obtained. There is normal movement of the right and left hemidiaphragms during the inspiration expiration views. RAD/Chest Sniff Test Fluoro Only IMPRESSION: Normal diaphragmatic movement. Electronically Signed: Tristan De La Garza MD at 9:30 EST , Service support ,
== END ==
PROVIDERS: PCP Family Medicine; Referring Provider Internal Medicine Pulmonary Disease; Visit Provider Internal Medicine Pulmonary Disease
DX: I50.30 Unspecified diastolic (congestive) heart failure (principal); R06.00 Dyspnea, unspecified
CPT/HCPCS: 76000

== ENCOUNTER 2020-10-03 06:45 | Day surgery (SDC) | payer MEDICARE, MEDICAID, SELFPAY ==
[2020-08-30 00:23] VITALS: BMI 51.2
[2020-10-03] VITALS (8 sets, daily range): BP systolic 126–157; BP diastolic 50–75; PULSE 61–65; RESP 16–20; TEMP 36.1–36.7; O2SAT 94–98; BMI 51.1
[2020-10-03] MEDS: Lactated Ringers 1,000 ML 100 ML IV (07:28)
[2020-10-03 08:00] LABS: Bedside Glucose 76 mg/dL (70-110)
--- NOTE | 2020-10-03 08:06 | RAD_ITS ---
STUDY: X-RAY - LUMBAR SPINE REASON FOR EXAM: Female, 65 years old. BILAT L4-S1 FACET INJECTION TECHNIQUE: 7 intraoperative view(s) of the lumbar spine were obtained. COMPARISON: None FINDINGS: Intraoperative imaging provided for bilateral L4- S1 facet joint injection. RAD/L/S Spine Min 4 Views IMPRESSION: Intraoperative imaging provided for bilateral L4-S1 facet joint injection. Electronically Signed: Tristan De La Garza MD at 12:25 EST , Service support ,
[2020-10-03] MEDS: MethylPREDNISolone Acetate 40 MG/ML Vial IM (08:12)
[2020-10-03] MEDS: Lidocaine 1% (5 ml sdv) 5 ML Vial (08:14)
[2020-10-03] MEDS: Bupivacaine 0.25% 30 ML Vial (08:15)
--- NOTE | 2020-10-03 15:37 | PCM.OPRPT ---
Report of Operation Date of Procedure: 10/03/20 Description of Surgical Findings:: Preoperative diagnosis: Lumbosacral spondylosis, lumbosacral degenerative disc disease, lumbar facet arthropathy Postoperative diagnosis: Lumbosacral spondylosis, lumbosacral degenerative disc disease, lumbar facet arthropathy PROCEDURE PERFORMED: Bilateral lumbar facet steroid injection, L4, L5, and S1. ANESTHESIA: MAC. BLOOD LOSS: Minimal. COMPLICATIONS: None. DESCRIPTION OF PROCEDURE: History and physical of today was reviewed. Risks and benefits of the procedure were explained. The patient understood and agreed to proceed. Informed consent was obtained. IV inserted per routine protocol. The patient was taken to the operating room and placed in the prone position with a pillow positioned underneath the abdomen. The lower back area was prepped and draped in a sterile fashion using iodine x3. Under fluoroscopy guidance on AP view, the L4 through S1 vertebral bodies were visualized. The skin and subcutaneous tissue was anesthetized with approximately 5 mL of 1% lidocaine using a 25-gauge regular needle. Under direct visualization with fluoroscopy, at approximately 25-degree angle, starting on the left L4, ending on the right L4, passing through the L5 and S1 bilaterally, using a 22-gauge 3-1/2-inch spinal needle, the needle was advanced via the skin. The tip of the needle was maneuvered and directed towards the superior medial gutter of the transverse process at the vicinity of the medial branch. Once tip of the needle was in contact with the bone, the needle was pulled approximately 2 mm off the bone. After negative aspiration for blood or CSF and confirmation on AP, oblique as well as lateral view, a total of 12 mL of preservative-free 0.25% Marcaine with 80 mg of Depo-Medrol was injected in divided doses between those six levels. The needles were then removed intact. The patient experienced no sign or symptoms of intrathecal or intravascular injection. The patient experienced no paresthesia. The procedure was completed without any apparent difficulty or any complications. The patient appeared to tolerate it well. ASSESSMENT AND PLAN: This is a 65-year-old female with lumbosacral spondylosis, lumbosacral degenerative disc disease, lumbar facet arthropathy status post bilateral lumbar facets steroid injection L4-S1, patient will continue her current medications, patient will follow in approximately 2 weeks for reevaluation.
== END 2020-10-03 09:17 | disposition home or self-care (01) ==
LOC: SDC 06:45 → AC 06:45
PROVIDERS: PCP Family Medicine; Referring Provider Anesthesiology Pain Medicine; Visit Provider Anesthesiology Pain Medicine
PROC: 3E0T3BZ Introduction of Anesthetic Agent into Peripheral Nerves and Plexi, Percutaneous Approach (ICD-10-PCS; CPT 64493; principal; 2020-10-03 07:55)
DX: M47.27 Other spondylosis with radiculopathy, lumbosacral region (principal); M51.17 Intervertebral disc disorders with radiculopathy, lumbosacral region; M48.07 Spinal stenosis, lumbosacral region; M43.16 Spondylolisthesis, lumbar region; M46.96 Unspecified inflammatory spondylopathy, lumbar region; Z79.891 Long term (current) use of opiate analgesic; E11.40 Type 2 diabetes mellitus with diabetic neuropathy, unspecified; M79.7 Fibromyalgia; E03.9 Hypothyroidism, unspecified; E66.9 Obesity, unspecified; Z68.43 Body mass index [BMI] 50.0-59.9, adult; E78.5 Hyperlipidemia, unspecified; D64.9 Anemia, unspecified; I11.0 Hypertensive heart disease with heart failure; I50.9 Heart failure, unspecified; F32.9 Major depressive disorder, single episode, unspecified; K21.9 Gastro-esophageal reflux disease without esophagitis; M10.9 Gout, unspecified; L71.9 Rosacea, unspecified; M06.9 Rheumatoid arthritis, unspecified; I42.9 Cardiomyopathy, unspecified; I25.2 Old myocardial infarction; Z86.711 Personal history of pulmonary embolism; Z79.4 Long term (current) use of insulin; Z79.82 Long term (current) use of aspirin; Z79.899 Other long term (current) drug therapy
CPT/HCPCS: 64493; 64494 ×2; 64495 ×2; 64483; 72110; 82962; J7120

== ENCOUNTER 2020-10-27 23:33 | Observation (INO) | payer MEDICARE, SELFPAY ==
[2020-10-03 07:17] VITALS: BMI 51.1
[2020-10-27 23:33] VITALS: BP 184/69; PULSE 76; RESP 16; TEMP 35.9; O2SAT 96; BMI 53.1
[2020-10-27] MEDS: Dextrose 50%-Water 25 GM/50 ML DISP.SYRIN IV (23:40)
--- NOTE | 2020-10-27 23:59 | ED.DCSUM_ITS ---
- ER Visit Summary Date of Service: 10/27/20 Chief Complaint: Hypoglycemia History of Present Illness: The patient is a 65 F presenting with hypoglycemia. Patient states that she ate normally today. She ate dinner around 5 PM and had a blood sugar of 129 at that time. She did not take her nighttime insulin. She started to become confused and family called EMS. Blood sugar was in the 30s. EMS gave her oral glucose and repeat blood sugar was 88. She continued to be concerned and was brought to the ED. On arrival to the ED her blood sugar was 42. She is currently on Keflex for UTI. She was seen at [place] [facility] yesterday for similar complaints. No recent changes to her insulin dosages. She has nausea with no vomiting. She denies fever. Denies chest pain. She has chronic shortness of breath that is no worse than usual. Denies other complaints. Physical Examination: Vitals are stable. Patient is afebrile. Alert no acute distress. HEENT exam is unremarkable. Neck is supple. Lungs are clear and equal bilaterally. Heart is regular rate and rhythm. Abdomen is soft nontender nondistended. Extremities are unremarkable. Skin is warm and dry. No focal neurologic deficit. Remainder of exam is unremarkable. Emergency Department Course and Treatment: Initial BGT 42. She was given an amp of D50. CBC shows white count 12.6, chemistries show glucose 40, creatinine 1.13. This was drawn prior to her D50. Repeat blood sugar 147 and 126. She was given Zofran IV. Discussed with the hospitalist for observation. Disposition: Observation Impression: Recurrent hypoglycemia This note was generated with [employer] dictation software. It may contain incorrect words, spelling, and punctuation that were not noted in review of the chart prior to signing ED Disposition - Plan for ED Patient: Referrals: Devan Parks MD [Primary Care Provider] -
[2020-10-28] VITALS (10 sets, daily range): BP systolic 116–183; BP diastolic 50–81; PULSE 68–97; RESP 14–19; TEMP 36.4–37.4; O2SAT 92–97; BMI 52.4
[2020-10-28] LABS: Absolute Lymphocyte Count 1.82 X10^3/uL (0.83-4.51); Absolute Neutrophil Count 9.4 X10^3/uL (2.0-7.7); Basophil# 0.06 X10^3/uL; Basophil% 0.5 % (0-1); Eosinophils% 2.4 % (0-5); Hematocrit 43.3 % (37-47); Hemoglobin 13.5 g/dL (12.0-15.0); Lymphocyte # 1.82 X10^3/ul (4.0); Lymphocyte % 14.5 % (19-41); Mean Corp Hgb Conc 31.2 g/dL (32-36); Mean Corpuscular Hgb 27.7 pg (27.0-32.0); Mean Corpuscular Volume 88.9 fL (81-99); Mean Platelet Vol. 10.2 fl (6.2-12.0); Monocyte# 0.91 X10^3/uL; Monocyte% 7.3 % (0-10); NRBC Flagged by Analyzer 0 % (0-5); Neutrophil # 9.39 X10^3/uL (2.7-7.7); Neutrophil % 74.7 % (47-70); Platelet Count 241 K/mm3 (150-450); RBC Distribution Width CV 14.2 % (11.6-14.6); RBC Distribution Width SD 45.9 fl (35.1-43.9); Red Blood Count 4.87 M/mm3 (4.2-5.4); White Blood Count 12.6 K/mm3 (4.4-11.0)
[2020-10-28 00:34] LABS: ALB/GLOB Ratio 0.7 RATIO (0.9-2.4); AST(SGOT) 29 U/L (15-37); Alanine Aminotransfer ALT/SGPT 35 U/L (13-56); Albumin, Serum 3.1 g/dL (3.2-5.0); Alkaline Phosphatase 159 U/L (45-117); Anion Gap 5 (5-15); BUN 17 mg/dL (7-18); Calcium,Total 9.1 mg/dL (8.5-10.1); Chloride 107 mmol/L (98-107); Creatinine, Serum 1.13 mg/dL (0.55-1.02); EST Glomerular Filtration Rate 51 mL/min (>60); Est Glom Filt Rate - Afr Amer 62 mL/min (>60); Estimated Creatinine Clearance 45.85 ml/min; Globulin 4.3 g/dL (2.2-4.2); Potassium 3.4 mmol/L (3.5-5.1); Protein, Total 7.4 g/dL (6.4-8.2); Sodium Level 143 mmol/L (136-145)
[2020-10-28 00:35] LABS: Glucose 40 mg/dL (74-106)
[2020-10-28] MEDS: Ondansetron 4 MG/2 ML Vial IV (01:01)
--- NOTE | 2020-10-28 02:23 | PCM.HP.STD ---
Problem List (1) Hypoglycemia associated with type 2 diabetes mellitus Status: Acute (2) Dyspnea Status: Acute Qualifiers: Dyspnea type: dyspnea on exertion Qualified Code(s): R06.00 - Dyspnea, unspecified (3) Diabetic ulcer of toe Status: Chronic (4) Candidiasis of breast Status: Chronic (5) Ulcer of right foot with fat layer exposed Status: Chronic (6) Type 2 diabetes mellitus with diabetic polyneuropathy Status: Chronic (7) Rheumatoid arthritis Status: Chronic (8) Hammer toe of left foot Status: Inactive (9) Hammer toe of right foot Status: Chronic (10) Takotsubo cardiomyopathy Status: Chronic (11) Sepsis Status: Inactive Qualifiers: Sepsis type: sepsis due to unspecified organism Sepsis acute organ dysfunction status: unspecified Qualified Code(s): A41.9 - Sepsis, unspecified organism (12) Diabetic infection of right foot Status: Inactive (13) UTI (urinary tract infection) Status: Inactive Qualifiers: Urinary tract infection type: site unspecified (14) Ulcer of right foot Status: Chronic (15) Toe osteomyelitis, right Status: Inactive Comment: Status post amputation 08/22/2019 (16) Type 2 diabetes mellitus with diabetic polyneuropathy Status: Chronic (17) NSTEMI (non-ST elevated myocardial infarction) Status: Chronic (18) Fibromyalgia Status: Chronic (19) Type 2 diabetes mellitus Status: Chronic Qualifiers: Diabetes mellitus alf insulin use: 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 Diabetes mellitus complication status: with other specified complication Qualified Code(s): E11.69 - Type 2 diabetes mellitus with other specified complication; 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 (20) Diabetic gastroparesis Status: Chronic (21) GERD (gastroesophageal reflux disease) Status: Chronic Qualifiers: Esophagitis presence: esophagitis presence not specified Qualified Code(s): K21.9 - Gastro-esophageal reflux disease without esophagitis (22) Seizure disorder Status: Chronic (23) Paroxysmal atrial fibrillation Status: Chronic (24) Chronic pain syndrome Status: Chronic (25) Takotsubo cardiomyopathy Status: Chronic (26) Iron deficiency anemia Status: Chronic Qualifiers: Iron deficiency anemia type: unspecified iron deficiency Qualified Code(s): D50.9 - Iron deficiency anemia, unspecified (27) Depression Status: Chronic Qualifiers: Depression Type: unspecified Qualified Code(s): F32.9 - Major depressive disorder, single episode, unspecified (28) Morbid obesity with BMI of 40.0-44.9, adult Status: Chronic (29) HLD (hyperlipidemia) Status: Chronic Qualifiers: Hyperlipidemia type: pure hypercholesterolemia Qualified Code(s): E78.00 - Pure hypercholesterolemia, unspecified; E78.0 - Pure hypercholesterolemia (30) Benign essential HTN Status: Chronic History of Present Illness Date of Admission: 10/28/20 Chief Complaint: Hypoglycemia The patient is a 65 year old F with multiple comorbidities as listed above including frequent ER visits and admission came to ER with hypoglycemia blood sugar in 30s at home. She went to [facility] ER for low blood sugar in 40s with confusion, disorientation yesterday when she was restated and decided to go home yesterday. Today, similar situation happened with confusion, disorientation, sweating, does not remember possible syncope and was blood sugar was found in 30s at home. As per patient, her stepson found she was confused. Blood pressure high in ED 184/69. For last few episodes, she is not having typical symptoms of hypoglycemia including palpitation and sometimes unaware of hypoglycemia. She does not have burning micturition, increased frequency or urgency. BMP shows glucose 40. BUN/creatinine 17/1.13 Past Medical History Past Medical History (Chronic Problems): Chronic Problems (Last Reviewed 08/30/20 @ 00:[address] Jacques Santos MD) Diabetic ulcer of toe (Chronic) Candidiasis of breast (Chronic) Ulcer of right foot with fat layer exposed (Chronic) Type 2 diabetes mellitus with diabetic polyneuropathy (Chronic) Rheumatoid arthritis (Chronic) Hammer toe of right foot (Chronic) Takotsubo cardiomyopathy (Chronic) Ulcer of right foot (Chronic) Type 2 diabetes mellitus with diabetic polyneuropathy (Chronic) NSTEMI (non-ST elevated myocardial infarction) (Chronic) Fibromyalgia (Chronic) Type 2 diabetes mellitus (Chronic) Diabetic gastroparesis (Chronic) GERD (gastroesophageal reflux disease) (Chronic) Seizure disorder (Chronic) Paroxysmal atrial fibrillation (Chronic) Chronic pain syndrome (Chronic) Takotsubo cardiomyopathy (Chronic) Iron deficiency anemia (Chronic) Depression (Chronic) Morbid obesity with BMI of 40.0-44.9, adult (Chronic) HLD (hyperlipidemia) (Chronic) Benign essential HTN (Chronic) Medical History: Medical History (Last Reviewed 08/30/20 @ 00:[address] Jacques Santos MD) Candidiasis of breast (Chronic) B37.89 Ulcer of right foot with fat layer exposed (Chronic) L97.512 Type 2 diabetes mellitus with diabetic polyneuropathy (Chronic) E11.42 Rheumatoid arthritis (Chronic) M06.9 Hammer toe of left foot (Inactive) M20.42 Hammer toe of right foot (Chronic) M20.41 Takotsubo cardiomyopathy (Chronic) I51.81 Sepsis (Inactive) A41.9 Diabetic infection of right foot (Inactive) E11.628, L08.9 UTI (urinary tract infection) (Inactive) N39.0 Ulcer of right foot (Chronic) L97.519 Toe osteomyelitis, right (Inactive) M86.9 Status post amputation 08/22/2019 Type 2 diabetes mellitus with diabetic polyneuropathy (Chronic) E11.42 NSTEMI (non-ST elevated myocardial infarction) (Chronic) I21.4 Fibromyalgia (Chronic) M79.7 Type 2 diabetes mellitus (Chronic) E11.9 Diabetic gastroparesis (Chronic) E11.43, K31.84 GERD (gastroesophageal reflux disease) (Chronic) K21.9 Seizure disorder (Chronic) G40.909 Paroxysmal atrial fibrillation (Chronic) I48.0 Chronic pain syndrome (Chronic) G89.4 Takotsubo cardiomyopathy (Chronic) I51.81 Iron deficiency anemia (Chronic) D50.9 Depression (Chronic) F32.9 Morbid obesity with BMI of 40.0-44.9, adult (Chronic) E66.01, Z68.41 HLD (hyperlipidemia) (Chronic) E78.5 Benign essential HTN (Chronic) I10 Abdominal pain R10.9 Thyroid disease E07.9 Diabetic gastroparesis E11.43, K31.84 Diverticulitis K57.92 Fibromyalgia M79.7 QIAN (obstructive sleep apnea) G47.33 Restless leg syndrome G25.81 History of CVA (cerebrovascular accident) (Inactive) Z86.73 Allergies ciprofloxacin [From Cipro] Allergy (Verified 10/27/20 23:56) short of breath cyclobenzaprine Allergy (Verified 10/27/20 23:56) rash levofloxacin [From Levaquin] Allergy (Verified 10/27/20 23:56) PT UNSURE OF REACTION sulfamethoxazole Allergy (Verified 03/11/21 23:56) itch topiramate Allergy (Verified 10/27/20 23:56) PT UNSURE OF REACTION trimethoprim Allergy (Verified 10/27/20 23:56) itch valacyclovir [From Valtrex] Allergy (Verified 10/27/20 23:56) other ketorolac [From Toradol] Adverse Reaction (Verified 10/27/20 23:56) Other Home Medications: Ambulatory Orders Medication Instructions Recorded Levothyroxine Sodium 75 mcg PO DAILY 09/17/18 Hydroxychloroquine [Plaquenil] 200 mg PO BIDCM 11/30/18 allopurinol 100 mg tablet 100 mg PO QHS tab 03/30/19 Insulin Regular, Human [Humulin R 75 unit SQ BID 04/11/19 U-500 Kwikpen] Aspirin 81 mg PO DAILY 08/16/19 Ropinirole HCl 1 mg PO QHS 08/16/19 hydrocodone 5 mg-acetaminophen 325 2 tab PO Q6H PRN 12/03/19 mg tablet carvedilol 12.5 mg tablet 12.5 mg PO BID tab 03/09/20 furosemide 40 mg tablet 40 mg PO DAILY PRN tab 03/09/20 pregabalin 225 mg capsule 225 mg PO BID cap 04/14/20 cholecalciferol (vitamin D3) 25 25 mcg PO DAILY 08/03/20 mcg (1,000 unit) capsule Ferrous Sulfate [Iron] 325 mg PO DAILY 08/29/20 Haloperidol 1 mg PO TID 08/29/20 Ondansetron [Zofran] 8 mg PO Q8H PRN PRN 08/29/20 Simvastatin [Zocor] 40 mg PO QHS 08/29/20 Albuterol Aerosols [Ventolin 2.5 mg INHALATION DAILY 09/30/20 Aerosols] Metformin HCl 500 mg PO DAILY 10/27/20 Promethazine HCl 25 mg PO TID PRN 10/27/20 Surgical History: Surgical History (Last Updated 04/14/20 @ 09:51 by Leandra Gunn) history left foot surgery History of cholecystectomy Z90.49 History of knee surgery Z98.890 History of left heart catheterization Onset Date: 03/09/19 Z98.890 Surgical History: appendectomy, cholecystectomy, - - Arthroscopic knee surgery. 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 Smoking Status: Never smoker Tobacco Use: Non-smoker - *Family History Paternal Family History: Family History (Last Updated 04/14/20 @ 09:51 by Leandra Gunn) Mother Myocardial infarction Asthma Diabetes Father Congestive heart failure Other Heart disease History Items: Heart Disease, - - Bone cancer Maternal Family History: Family History (Last Updated 04/14/20 @ 09:51 by Leandra Gunn) Mother Myocardial infarction Asthma Diabetes Father Congestive heart failure Other Heart disease History Items: COPD, Diabetes, Heart Disease, - - Smoker Review of Systems Constitutional: Reports: Malaise, Weakness. Denies: Chills, Fever, Weight Change HEENT: Denies: Head Aches, Sinus Congestion, Sinus Drainage Cardiovascular: Reports: Syncope - Unclear possible syncope from hypoglycemia. Denies: Chest Pain, Palpitations Respiratory: Reports: Shortness of breath at rest, Shortness of breath upon exertion. Denies: Cough, Sputum production Gastrointestinal: Reports: Nausea. Denies: Abdominal Pain, Diarrhea, Hematemesis, Hematochezia, Melena, Vomiting Genitourinary: Denies: Dysuria, Frequency, Hematuria, Hesitancy Musculoskeletal: Denies: Joint Pain, Joint Tenderness Skin: Denies: Rash, Wounds Neurological: Reports: Balance problems, Incoordination. Denies: Focal weakness, Numbness, Tingling Psychiatric: Reports: Anxiety, Depression. Denies: Homicidal Ideations, Suicidal Ideations Hematologic/ Lymphatic: Denies: Easy Bruising, Easy Bleeding VTE Information - Inpt Only VTE Present on Admission: No VTE Mechan Device Prophylaxis: None VTE Pharm Prophylaxis ordered?: Yes Patient Problems: Active and Suspected Problems (Last Reviewed 08/30/20 @ 00:[address] Jacques Santos MD) Hypoglycemia associated with type 2 diabetes mellitus (Acute) Dyspnea (Acute) Objective: General: Lethargic but awake, oriented x3. HEENT: Atraumatic, PERRLA, EOMI, Normocephalic Oral: No Gingival or Mucosal Lesions/ Ulcerations Neck: Supple, No JVD, Negative Carotid Bruits Lungs: Air entry diminished in bilateral lung bases. No crepitation/rhonchi. Mild dyspnea at rest Cardiovascular: Regular rate, Regular Rhythm, Normal S1, Normal S2, No murmurs Abdomen: Bowel Sounds Present, Soft, Non Tender, Non-Distended : No renal angle tenderness. No suprapubic tenderness. Extremities: Mild bilateral ankle edema, Capillary Refill Less than 3 Seconds Skin: No rashes, No breakdown Musculoskeletal: No Tenderness to Palpation of Joints or Extremities Neurological: Cranial nerves II-XII grossly intact, Deep Tendon Reflexes 2+/4 and Symmetrical, Neuro grossly intact Psych/Mental Status: Flat affect. - Physical Exam Vitals/I&O's: Vital Signs Temp Pulse Resp BP Pulse Ox 97.8 F 68 19 H 183/72 H 97 10/28/20 02:02 10/28/20 02:02 10/28/20 02:02 10/28/20 02:02 10/28/20 02:02 Oxygen Delivery Method Room Air Weight: 329 lb 5.93 oz Body Mass Index (BMI) 53.1 Finger Stick Blood Glucose 126 Laboratory Results 10/27/20 23:45: WBC 12.6 H, RBC 4.87, Hgb 13.5, Hct 43.3, MCV 88.9, MCH 27.7, MCHC 31.2 L, RDW Std Deviation 45.9 H, RDW Coeff of Be 14.2, Plt Count 241, MPV 10.2, Immature Gran % (Auto) 0.600, Neut % (Auto) 74.7 H, Lymph % (Auto) 14.5 L, [place] % (Auto) 7.3, Eos % (Auto) 2.4, Baso % (Auto) 0.5, Absolute Neuts (auto) 9.4 H, Absolute Lymphs (auto) 1.82, Nucleated RBC % 0 10/27/20 23:45: Sodium 143, Potassium 3.4 L, Chloride 107, Carbon Dioxide 31.0, Anion Gap 5, BUN 17, Creatinine 1.13 H, Estim Creat Clear Calc 45.85, Est GFR (MDRD) Af Amer 62, Est GFR (MDRD) Non-Af 51 L, BUN/Creatinine Ratio 15.0, Glucose 40 L*, Calcium 9.1, Total Bilirubin 0.60, AST 29, ALT 35, Alkaline Phosphatase 159 H, Total Protein 7.4, Albumin 3.1 L, Globulin 4.3 H, Albumin/Globulin Ratio 0.7 L Assessment/Plan All Active Problems (Last Reviewed 08/30/20 @ 00:[address] Jacques Santos MD) Hypoglycemia associated with type 2 diabetes mellitus (Acute) Dyspnea (Acute) 1. 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 Accu-Cheks every 2 hourly until glucose is persistently more than 110 For at least 3 times. Twelve-lead EKG ordered. Patient does not have chest pain. 2. Chronic history of dyspnea, etiology unclear: Patient stated she had work-up for dyspnea but could not find region. Chest x-ray ordered. Echocardiogram on 02/04/2020 was reviewed. Estimated ejection fraction was 55% and there was evidence of diastolic dysfunction. Patient on Lasix 40 mg p.o. as needed. BNP ordered. Lasix continued. Denies history of smoking/COPD or emphysema 3. Hypertensive urgency: Patient on carvedilol. Started on lisinopril 10 mg daily. Monitor kidney function electrolytes. Hydralazine 10 mg IV every 4 hourly as needed for systolic blood pressure more than 180 MAG 4. Chronic leukocytosis probably medication induced patient on Plaquenil 5. Chronic ulcer and right first to third digit. Consult wound nurse. She had history of right toe osteomyelitis status post amputation in August 2019 6. Rheumatoid arthritis on Plaquenil 7. Restless leg syndrome on Requip 8. Diabetes mellitus type 2 with chronic diabetic neuropathy. Patient on pregabalin 9 hypothyroidism. Synthroid continued 10 hyperlipidemia: On atorvastatin. Hold Zocor as nonformulary. 11 gout: Allopurinol continued DVT prophylaxis Subcutaneous Lovenox ordered. Living will/advanced directive/end of life care: Patient states that she has living will or advanced directive but it is not scanned in our system. After discussion of benefits/risks procedures involved with full code, DNR CC arrest and DNR CC, the patient opted for full code Patient does want artificial life support including intubation, tube feed, ventilator and/chest compression, central venous catheter, vasopressor and DC shock if needed Total time spent in [id number] encounter in discussion of advanced directive 16 minutes. OBSV E&M: 47078 Initial observation care L3 Procedures: 34861 Advncd Care Plan 30 Min
--- NOTE | 2020-10-28 02:29 | EKG12_ITS ---
Test Reason : AM EKG Blood Pressure : / mmHG Vent. Rate : 068 BPM Atrial Rate : 068 BPM P-R Int : 162 ms QRS Dur : 094 ms QT Int : 428 ms P-R-T Axes : 049 -31 034 degrees QTc Int : 455 ms Normal sinus rhythm Left axis deviation Abnormal ECG When compared with ECG of 29-AUG-2020 20:43, QT has shortened Confirmed by MOHAMUD CURRY, JED ([id number]), assistant production editor VIDAL MCDERMOTT ([id number]) on 10/31/2020 11:42:08 A M Referred By: DR BASS Confirmed By:JIMMY MALLORY MD
[2020-10-28 02:45] LABS: Bedside Glucose 126 mg/dL (70-110)
--- NOTE | 2020-10-28 02:54 | RAD_ITS ---
STUDY: X-RAY CHEST REASON FOR EXAM: Female, 65 years old patient with tachypnea TECHNIQUE: Single AP portable view of the chest. COMPARISON: 08/29/2020. FINDINGS: Cardiac monitoring leads are present. The lungs are expanded. There is groundglass attenuation at the right lung base. There is mild prominence of bronchovascular markings. There is no demonstrated pleural abnormality. There is borderline cardiomegaly. There is mild prominence of the right hilar area. Normal visualized pulmonary arteries. There is atherosclerotic calcification of the aortic arch with tortuosity. There is demineralization of the osseous structures. There is chondrocalcinosis of the left shoulder possibly secondary to calcific tendinopathy. There is no demonstrated abnormality of the visualized soft tissue structures of the upper abdomen. RAD/Chest 1 View (Portable) IMPRESSION: Patchy right basilar airspace disease could represent pneumonia. Electronically Signed: Eri Floyd MD at 5:16 EST , Service support ,
[2020-10-28] MEDS: Dextrose 10%-Water 250 ML 40 ML IV (03:07)
[2020-10-28] MEDS: Enoxaparin 40 MG/0.4 ML Syringe SC (03:09)
[2020-10-28 03:46] LABS: Bedside Glucose 93 mg/dL (70-110)
[2020-10-28] MEDS: Levothyroxine 75 MCG Tablet PO (05:24)
[2020-10-28] MEDS: Haloperidol 1 MG Tablet PO ×2 (05:24→14:10)
[2020-10-28] MEDS: oxyCODONE 5 MG Tablet PO ×2 (05:32→14:11)
[2020-10-28 06:02] LABS: Absolute Lymphocyte Count 2.07 X10^3/uL (0.83-4.51); Absolute Neutrophil Count 7.7 X10^3/uL (2.0-7.7); Basophil# 0.05 X10^3/uL; Basophil% 0.5 % (0-1); Eosinophil# 0.29 X10^3/uL; Eosinophils% 2.6 % (0-5); Hematocrit 38.5 % (37-47); Hemoglobin 12.2 g/dL (12.0-15.0); Lymphocyte # 2.07 X10^3/ul (4.0); Lymphocyte % 18.9 % (19-41); Mean Corp Hgb Conc 31.7 g/dL (32-36); Mean Corpuscular Hgb 27.9 pg (27.0-32.0); Mean Corpuscular Volume 88.1 fL (81-99); Mean Platelet Vol. 10.1 fl (6.2-12.0); Monocyte# 0.81 X10^3/uL; Monocyte% 7.4 % (0-10); NRBC Flagged by Analyzer 0 % (0-5); Neutrophil % 70.3 % (47-70); Platelet Count 252 K/mm3 (150-450); RBC Distribution Width CV 14.3 % (11.6-14.6); RBC Distribution Width SD 45.7 fl (35.1-43.9); Red Blood Count 4.37 M/mm3 (4.2-5.4)
[2020-10-28 06:34] LABS: Anion Gap 3 (5-15); BUN 15 mg/dL (7-18); BUN/Creat Ratio 15.9 RATIO (10-20); Calcium,Total 9.2 mg/dL (8.5-10.1); Chloride 108 mmol/L (98-107); Creatinine, Serum 0.94 mg/dL (0.55-1.02); EST Glomerular Filtration Rate 63 mL/min (>60); Est Glom Filt Rate - Afr Amer 76 mL/min (>60); Estimated Creatinine Clearance 55.11 ml/min; Glucose 119 mg/dL (74-106); Magnesium 2.3 mg/dL (1.6-2.6); Phosphorus 3.8 mg/dL (2.5-4.9); Potassium 3.9 mmol/L (3.5-5.1); Sodium Level 141 mmol/L (136-145); Thyroid Stim Hormone (TSH) 1.26 uIU/mL (0.358-3.74)
[2020-10-28] MEDS: Morphine 2 MG/ML Syringe IV (07:05)
[2020-10-28 07:10] LABS: Bedside Glucose 121 mg/dL (70-110)
[2020-10-28 07:15] LABS: Bedside Glucose 127 mg/dL (70-110)
[2020-10-28 08:34] LABS: Hemoglobin A1c 6.5 % (3.8-5.6)
[2020-10-28] MEDS: Aspirin 81 MG TAB.CHEW PO (08:34)
[2020-10-28] MEDS: Furosemide 40 MG Tablet PO (08:35)
[2020-10-28] MEDS: Ferrous Sulfate 325 MG Tablet PO (08:35)
[2020-10-28] MEDS: Hydroxychloroquine 200 MG Tablet PO ×2 (08:35→16:04)
[2020-10-28] MEDS: Carvedilol 12.5 MG Tablet PO (08:35)
[2020-10-28] MEDS: Pregabalin 75 MG Capsule 150 MG PO (08:39)
[2020-10-28 09:16] LABS: Bedside Glucose 42 mg/dL (70-110)
[2020-10-28 09:16] LABS: Bedside Glucose 147 mg/dL (70-110)
[2020-10-28] MEDS: Insulin Lispro 100 UNIT/ML INSULN.PEN SC ×2 (11:12→16:04)
[2020-10-28] MEDS: Ondansetron 8 MG Tablet PO (11:12)
[2020-10-28 11:55] LABS: Bedside Glucose 277 mg/dL (70-110)
[2020-10-28] MEDS: Metoclopramide 10 MG Tablet PO (16:04)
[2020-10-28 16:11] LABS: Bedside Glucose 299 mg/dL (70-110)
--- NOTE | 2020-10-28 17:58 | DCINST_ITS ---
- Discharge Diagnoses Current Active Problems: Current Active and Chronic Problems (Last Reviewed 08/30/20 @ 00:[address] Jacques Santos MD) Hypoglycemia associated with type 2 diabetes mellitus (Acute) Dyspnea (Acute) Diabetic ulcer of toe (Chronic) Candidiasis of breast (Chronic) Ulcer of right foot with fat layer exposed (Chronic) Type 2 diabetes mellitus with diabetic polyneuropathy (Chronic) Rheumatoid arthritis (Chronic) Hammer toe of right foot (Chronic) Takotsubo cardiomyopathy (Chronic) Ulcer of right foot (Chronic) Type 2 diabetes mellitus with diabetic polyneuropathy (Chronic) NSTEMI (non-ST elevated myocardial infarction) (Chronic) Fibromyalgia (Chronic) Type 2 diabetes mellitus (Chronic) Diabetic gastroparesis (Chronic) GERD (gastroesophageal reflux disease) (Chronic) Seizure disorder (Chronic) Paroxysmal atrial fibrillation (Chronic) Chronic pain syndrome (Chronic) Takotsubo cardiomyopathy (Chronic) Iron deficiency anemia (Chronic) Depression (Chronic) Morbid obesity with BMI of 40.0-44.9, adult (Chronic) HLD (hyperlipidemia) (Chronic) Benign essential HTN (Chronic) You will use the following diet at home:: Calorie/Carbohydrate Controlled (specify 1200, 1400, etc) - 1800 brain Your food should be the consistency of: Regular Your liquids should be the consistency of: Regular/Thin Discharge Activity: Return to Normal Activity Weight Bearing Status: Full weight bearing Allergies/Adverse Reactions: Allergies ciprofloxacin [From Cipro] Allergy (Verified 10/28/20 03:04) short of breath cyclobenzaprine Allergy (Verified 10/28/20 03:04) rash levofloxacin [From Levaquin] Allergy (Verified 10/28/20 03:04) PT UNSURE OF REACTION sulfamethoxazole Allergy (Verified 10/28/20 03:04) itch topiramate Allergy (Verified 10/28/20 03:04) PT UNSURE OF REACTION trimethoprim Allergy (Verified 10/28/20 03:04) itch valacyclovir [From Valtrex] Allergy (Verified 10/28/20 03:04) other ketorolac [From Toradol] Adverse Reaction (Verified 10/28/20 03:04) Other Medications to take at Discharge Levothyroxine Sodium 75 mcg PO DAILY 09/17/18 Hydroxychloroquine [Plaquenil] 200 mg PO BIDCM 11/30/18 allopurinol 100 mg tablet 100 mg PO QHS tab 03/30/19 Aspirin 81 mg PO DAILY 08/16/19 Ropinirole HCl 1 mg PO QHS 08/16/19 hydrocodone 5 mg-acetaminophen 325 mg tablet 2 tab PO Q6H PRN 12/03/19 carvedilol 12.5 mg tablet 12.5 mg PO BID tab 03/09/20 furosemide 40 mg tablet 40 mg PO DAILY PRN tab 03/09/20 pregabalin 225 mg capsule 225 mg PO BID cap 04/14/20 cholecalciferol (vitamin D3) 25 mcg (1,000 unit) capsule 25 mcg PO DAILY 07/19 02/05 Ferrous Sulfate [Iron] 325 mg PO DAILY 08/29/20 Haloperidol 1 mg PO TID PRN PRN 08/29/20 Ondansetron [Zofran] 8 mg PO Q6H PRN PRN 08/29/20 Simvastatin [Zocor] 40 mg PO QHS 08/29/20 Albuterol Aerosols [Ventolin Aerosols] 2.5 mg INHALATION DAILY 09/30/20 Metformin HCl 500 mg PO DAILY 10/27/20 Promethazine HCl 25 mg PO TID PRN 10/27/20 Insulin Glargine [Lantus SoloStar Pen] 20 units SC BIDCM #5 pen 10/28/20 Metoclopramide HCl [Reglan] 2.5 - 5 mg PO UD #90 tab 10/28/20 The following prescriptions were given: Insulin Glargine [Lantus SoloStar Pen] 20 units SC BIDCM #5 pen Transmission Status: Pending to [id number] Metoclopramide HCl [Reglan] 2.5 - 5 mg PO UD #90 tab Transmission Status: Pending to [id number] Primary Care Physician: Devan Parks MD [Primary Care Provider] - Please follow up with your Primary Care Physician in: next week Test Results: Test results from this visit will be discussed in further detail at your follow- up appointment, if applicable. Please Follow Up With: Diabetic physician When: next week-call her if you cant get into office
--- NOTE | 2020-10-29 14:38 | PCM.DC.SUM ---
Discharge Date and Diagnosis - Problem List Patient Problems: Active and Suspected Problems (Last Reviewed 08/30/20 @ 00:[address] Jacques Santos MD) Hypoglycemia associated with type 2 diabetes mellitus (Acute) Dyspnea (Acute) Date of Admission: 10/28/20 Date of Discharge: 10/29/20 - Primary Discharge Diagnosis Acute Problems: Active Problems (Last Reviewed 08/30/20 @ 00:[address] Jacques Santos MD) #1 hypoglycemia-secondary to insulin administration for type 2 diabetes #2 type 2 diabetes #3 diabetic gastroparesis #4 morbid obesity #5 obstructive sleep apnea #6 neuropathy second to type 2 diabetes - Secondary Discharge Diagnosis Chronic Problems: Chronic Problems (Last Reviewed 08/30/20 @ 00:[address] Jacques Santos MD) Diabetic ulcer of toe (Chronic) Candidiasis of breast (Chronic) Ulcer of right foot with fat layer exposed (Chronic) Type 2 diabetes mellitus with diabetic polyneuropathy (Chronic) Rheumatoid arthritis (Chronic) Hammer toe of right foot (Chronic) Takotsubo cardiomyopathy (Chronic) Ulcer of right foot (Chronic) Type 2 diabetes mellitus with diabetic polyneuropathy (Chronic) NSTEMI (non-ST elevated myocardial infarction) (Chronic) Fibromyalgia (Chronic) Type 2 diabetes mellitus (Chronic) Diabetic gastroparesis (Chronic) GERD (gastroesophageal reflux disease) (Chronic) Seizure disorder (Chronic) Paroxysmal atrial fibrillation (Chronic) Chronic pain syndrome (Chronic) Takotsubo cardiomyopathy (Chronic) Iron deficiency anemia (Chronic) Depression (Chronic) Morbid obesity with BMI of 40.0-44.9, adult (Chronic) HLD (hyperlipidemia) (Chronic) Benign essential HTN (Chronic) Hospital Course and Treatment Consultations 10/28/20 02:54 Consult: Onc/Wound/veterinary pathologist Routine Comment: Operations: None, - - Right second toe amputation Procedures: None Summary of Care Provided: The patient is a 65 year old F was seen in the emergency room at [facility] presenting with hypoglycemia from home, patient became confused and her family called EMS, her blood sugar was in the 30s according to squad, patient was given oral glucose and the repeat blood sugar was 88. On arrival to the emergency room, her blood sugar was 42. Work-up in the emergency room included a CBC which shows a white count of 12.6, chemistry showed a glucose of 40, creatinine was 1.13. Patient was given D50, her repeat blood sugar was 147 and 126. Patient was given Zofran IV for nausea and placed into observation status on PCU. Patient's blood sugars improved after hospitalization, had discussion with the patient concerning changing her insulin-she was on U5 100 at home at a dose of 75 units twice a day. Patient was changed to Lantus insulin in the hospital, she remained nauseated and was unable to eat much however, I gave her Reglan before her dinner meal on 10/28/2020 and following this the patient was able to eat dinner and requested discharge home. On examination she appeared in good health and spirits, she does not appear to be in any distress. Vital signs as documented. Skin warm and dry and without overt rashes. Neck without JVD, thyroid appears normal, trachea is midline, neck is supple. Lungs clear, normal air movement was noted. Heart exam notable for regular rhythm, normal sounds and absence of murmurs, rubs or gallops. Abdomen unremarkable and without evidence of organomegaly, masses, or abdominal aortic enlargement, bowel sounds are present in all 4 quadrants, no abdominal tenderness was noted. Patient is morbidly obese. Extremities nonedematous, no cyanosis was noted, no clubbing was noted. Neuro: Cranial nerves II through XII are grossly intact, no focal motor deficits were noted, sensation to light touch and pinprick is intact, motor exam 5/5 throughout. Psych: Patient is alert and oriented x3, she does not appear anxious or depressed, she does not appear agitated. Patient was discharged in stable condition on 10/28/2020. She was instructed to follow-up with her performance improvement consultant next week. Further note: I also discussed with her the usage of Reglan and told her that it was best to stay at the lowest dose that she felt was effective and that she could not take it and take Haldol at the same time. Patient understood there is a risk for tremor with the medication. Patient Problems: Active and Suspected Problems (Last Reviewed 08/30/20 @ 00:[address] Jacques Santos MD) Hypoglycemia associated with type 2 diabetes mellitus (Acute) Dyspnea (Acute) - Physical Exam Vitals/I&O's: Vital Signs Temp Pulse Resp BP Pulse Ox 99.0 F 74 14 131/69 H 92 10/28/20 14:07 10/28/20 15:00 10/28/20 14:07 10/28/20 14:07 10/28/20 14:07 Oxygen Flow Rate (L/min) 2.5 Oxygen Delivery Method Room Air Weight: 147.3 kg Body Mass Index (BMI) 52.4 Finger Stick Blood Glucose 126 Intake and Output for Last 24 Hours 10/27/20 10/28/20 10/29/20 23:59 23:59 23:59 Intake Total 523.33 / 523.33 Balance 523.33 / 523.33 Laboratory Results 10/28/20 16:02: POC Glucose 299 H Discharge Activity: Return to Normal Activity Weight Bearing Status: Full weight bearing Home Medications: Medications to take at Discharge Levothyroxine Sodium 75 mcg PO DAILY 09/17/18 Hydroxychloroquine [Plaquenil] 200 mg PO BIDCM 11/30/18 allopurinol 100 mg tablet 100 mg PO QHS tab 03/30/19 Aspirin 81 mg PO DAILY 08/16/19 Ropinirole HCl 1 mg PO QHS 08/16/19 hydrocodone 5 mg-acetaminophen 325 mg tablet 2 tab PO Q6H PRN 12/03/19 carvedilol 12.5 mg tablet 12.5 mg PO BID tab 03/09/20 furosemide 40 mg tablet 40 mg PO DAILY PRN tab 03/09/20 pregabalin 225 mg capsule 225 mg PO BID cap 04/14/20 cholecalciferol (vitamin D3) 25 mcg (1,000 unit) capsule 25 mcg PO DAILY 08/03/20 Ferrous Sulfate [Iron] 325 mg PO DAILY 08/29/20 Haloperidol 1 mg PO TID PRN PRN 08/29/20 Ondansetron [Zofran] 8 mg PO Q6H PRN PRN 08/29/20 Simvastatin [Zocor] 40 mg PO QHS 08/29/20 Albuterol Aerosols [Ventolin Aerosols] 2.5 mg INHALATION DAILY 09/30/20 Metformin HCl 500 mg PO DAILY 10/27/20 Promethazine HCl 25 mg PO TID PRN 10/27/20 Insulin Glargine [Lantus SoloStar Pen] 20 units SC BIDCM #5 pen 10/28/20 Metoclopramide HCl [Reglan] 2.5 - 5 mg PO UD #90 tab 10/28/20 Following Prescriptions Were Given to Patient: Insulin Glargine [Lantus SoloStar Pen] 20 units SC BIDCM #5 pen Transmission [id number] Metoclopramide HCl [Reglan] 2.5 - 5 mg PO UD #90 tab Transmission Status: [id number] Primary Care Physician: Devan Parks MD [Primary Care Provider] - Please follow up with your Primary Care Physician in: next week Please Follow Up With: Diabetic physician When: next week-call her if you cant get into office Disposition: Home Minutes spent on discharge:: 30 Patient Condition:: Stable Medical Necessity - Tobacco Use Smoking Status: Never smoker Tobacco Use: Non-smoker Meaningful Use Info Meaningful Use Diagnoses (Choose all that apply): None applicable OBSV E&M: 84330 Observation care discharge
== END 2020-10-28 17:59 | disposition home or self-care (01) ==
LOC: ED 10-28 00:11 → PCU 10-28 02:35
PROVIDERS: Admitting Provider Internal Medicine; Emergency Provider Emergency Medicine; PCP Family Medicine; Visit Provider Internal Medicine
DX: E11.649 Type 2 diabetes mellitus with hypoglycemia without coma (principal); E11.43 Type 2 diabetes mellitus with diabetic autonomic (poly)neuropathy; E11.42 Type 2 diabetes mellitus with diabetic polyneuropathy; G47.33 Obstructive sleep apnea (adult) (pediatric); L97.512 Non-pressure chronic ulcer of other part of right foot with fat layer exposed; E11.621 Type 2 diabetes mellitus with foot ulcer; M06.9 Rheumatoid arthritis, unspecified; M20.42 Other hammer toe(s) (acquired), left foot; M20.41 Other hammer toe(s) (acquired), right foot; I25.2 Old myocardial infarction; M79.7 Fibromyalgia; K31.84 Gastroparesis; K21.9 Gastro-esophageal reflux disease without esophagitis; I48.0 Paroxysmal atrial fibrillation; G89.4 Chronic pain syndrome; D50.9 Iron deficiency anemia, unspecified; E66.01 Morbid (severe) obesity due to excess calories; E78.5 Hyperlipidemia, unspecified; I10 Essential (primary) hypertension; Z79.899 Other long term (current) drug therapy; Z79.4 Long term (current) use of insulin; Z68.43 Body mass index [BMI] 50.0-59.9, adult; I16.0 Hypertensive urgency; D72.829 Elevated white blood cell count, unspecified; G25.81 Restless legs syndrome; E03.9 Hypothyroidism, unspecified; M10.9 Gout, unspecified
CPT/HCPCS: 71045; 80048; 80053; 82962; 83036; 83690; 83735; 84100; 84443; 84484; 85025; 93005; 96361; 96372; 96374; 96375; 99218; 99251; 99283; 99285; J7030; A4216; G0378; G0463; J2405

== ENCOUNTER 2020-10-28 21:58 | Emergency (ER) | payer MEDICARE, MEDICAID, SELFPAY ==
[2020-10-28 02:39] VITALS: BMI 52.4
[2020-10-28 22:00] VITALS: BP 180/92; PULSE 84; RESP 24; TEMP 36.2; O2SAT 91; BMI 51.6
--- NOTE | 2020-10-28 22:38 | EKG12_ITS ---
Test Reason : NAUSEA & VOMITING Blood Pressure : / mmHG Vent. Rate : 084 BPM Atrial Rate : 084 BPM P-R Int : 160 ms QRS Dur : 092 ms QT Int : 400 ms P-R-T Axes : 008 -39 042 degrees QTc Int : 472 ms Normal sinus rhythm Left axis deviation Abnormal ECG Confirmed by MOHAMUD CURRY, JED ([id number]), make up editor VIDAL MCDERMOTT ([id number]) on 10/31/2020 10:58:00 A M Referred By: Confirmed By:JIMMY MALLORY MD
--- NOTE | 2020-10-28 22:56 | ED.VISSUMM ---
- ER Visit Summary Date of Service: 10/28/20 Chief Complaint: Vomiting History of Present Illness: The patient is a 65 F presenting with vomiting. Patient states this started this morning. She was admitted last night for hypoglycemia. She states she ate breakfast and had vomiting. She also had vomiting after lunch. Before dinner she was given Reglan. She was discharged at 6 PM. She states when she returned home she began vomiting again. She denies abdominal pain. Denies diarrhea. Denies fever or chills. Denies chest pain or shortness of breath. Her blood sugar was 300. Denies other complaints. Physical Examination: Vitals are stable. Patient is afebrile. Alert no acute distress. HEENT exam is unremarkable. Neck is supple. Lungs are clear and equal bilaterally. Heart is regular rate and rhythm. Abdomen is soft nontender nondistended. No guarding or rebound Extremities are unremarkable. Skin is warm and dry. No focal neurologic deficit. Remainder of exam is unremarkable. Emergency Department Course and Treatment: Patient was given IV fluids, Reglan. EKG is normal sinus rhythm rate of 84 with no acute ischemic changes. CBC, chemistries unremarkable, glucose 285, creatinine 1.25. Lipase is normal. Troponin is negative. Patient continues to have nausea was given Zofran IV. On re-evaluation, she is able to tolerate p.o. She is requesting discharge home. She will follow-up with her primary care physician. She was advised to return to the ED for worsening complaints. Disposition: Discharge home Impression: Nausea, vomiting This note was generated with [employer] dictation software. It may contain incorrect words, spelling, and punctuation that were not noted in review of the chart prior to signing ED Disposition - Plan for ED Patient: Disposition: Home or Assisted Living Instructions: ED Vomiting (Adult) Referrals: Devan Parks MD [Primary Care Provider] -
[2020-10-28] MEDS: 0.9% Normal Saline 1,000 ML 1000 ML IV (22:58)
[2020-10-28] MEDS: Metoclopramide 10 MG/2 ML Vial IV (22:58)
[2020-10-28 23:08] LABS: Absolute Lymphocyte Count 1.94 X10^3/uL (0.83-4.51); Absolute Neutrophil Count 6.7 X10^3/uL (2.0-7.7); Basophil# 0.05 X10^3/uL; Basophil% 0.5 % (0-1); Eosinophil# 0.26 X10^3/uL; Eosinophils% 2.7 % (0-5); Hematocrit 39.8 % (37-47); Hemoglobin 12.6 g/dL (12.0-15.0); Lymphocyte # 1.94 X10^3/ul (4.0); Lymphocyte % 19.9 % (19-41); Mean Corp Hgb Conc 31.7 g/dL (32-36); Mean Corpuscular Hgb 27.4 pg (27.0-32.0); Mean Corpuscular Volume 86.5 fL (81-99); Mean Platelet Vol. 9.9 fl (6.2-12.0); Monocyte# 0.78 X10^3/uL; NRBC Flagged by Analyzer 0 % (0-5); Neutrophil # 6.68 X10^3/uL (2.7-7.7); Neutrophil % 68.6 % (47-70); Platelet Count 228 K/mm3 (150-450); RBC Distribution Width CV 14.6 % (11.6-14.6); RBC Distribution Width SD 45.6 fl (35.1-43.9); White Blood Count 9.7 K/mm3 (4.4-11.0)
[2020-10-28 23:33] LABS: ALB/GLOB Ratio 0.7 RATIO (0.9-2.4); AST(SGOT) 44 U/L (15-37); Alanine Aminotransfer ALT/SGPT 33 U/L (13-56); Alkaline Phosphatase 145 U/L (45-117); Anion Gap 5 (5-15); BUN 16 mg/dL (7-18); BUN/Creat Ratio 12.8 RATIO (10-20); Calcium,Total 9.8 mg/dL (8.5-10.1); Chloride 97 mmol/L (98-107); Creatinine, Serum 1.25 mg/dL (0.55-1.02); EST Glomerular Filtration Rate 46 mL/min (>60); Est Glom Filt Rate - Afr Amer 55 mL/min (>60); Estimated Creatinine Clearance 41.44 ml/min; Globulin 4.6 g/dL (2.2-4.2); Glucose 285 mg/dL (74-106); Lipase 126 U/L (73-393); Potassium 4.5 mmol/L (3.5-5.1); Protein, Total 7.6 g/dL (6.4-8.2); Sodium Level 137 mmol/L (136-145)
[2020-10-29 00:05] VITALS: BP 169/68; PULSE 85; RESP 15; O2SAT 92
[2020-10-29] MEDS: Ondansetron 4 MG/2 ML Vial IV (01:22)
--- NOTE | 2020-10-29 01:54 | ED.DEP ---
ED Disposition - Plan for ED Patient: Instructions: ED Vomiting (Adult) Referrals: Devan Parks MD [Primary Care Provider] -
[2020-10-29 02:09] VITALS: BP 157/70; PULSE 88; RESP 22; O2SAT 97
== END 2020-10-29 02:10 | disposition home or self-care (01) ==
PROVIDERS: Emergency Provider Emergency Medicine; PCP Family Medicine
DX: R11.2 Nausea with vomiting, unspecified (principal); I10 Essential (primary) hypertension; I25.10 Atherosclerotic heart disease of native coronary artery without angina pectoris; K21.9 Gastro-esophageal reflux disease without esophagitis; E11.9 Type 2 diabetes mellitus without complications; E78.00 Pure hypercholesterolemia, unspecified; Z86.73 Personal history of transient ischemic attack (TIA), and cerebral infarction without residual deficits; Z79.4 Long term (current) use of insulin; Z79.82 Long term (current) use of aspirin; Z79.899 Other long term (current) drug therapy
CPT/HCPCS: 80053; 83690; 84484; 85025; 93005; 99283; J7030; A4216; J2405

== ENCOUNTER 2020-10-31 09:45 | Day surgery (SDC) | payer MEDICARE, SELFPAY ==
[2020-10-03 07:17] VITALS: BMI 51.1
[2020-10-31] VITALS (8 sets, daily range): BP systolic 112–174; BP diastolic 53–76; PULSE 62–69; RESP 16; TEMP 36.4–36.9; O2SAT 93–100; BMI 52.4
[2020-10-31] MEDS: Lactated Ringers 1,000 ML 100 ML IV (10:47)
--- NOTE | 2020-10-31 11:05 | RAD_ITS ---
PROCEDURE: Caudal block. DATE OF EXAMINATION: 10/31/2020 INDICATION: Female, 65 years old. Chronic low back pain. FLUOROSCOPY TIME (if supplied): (15 seconds) minutes/seconds. Single lateral view. RAD/Fluor Guidance for Spine Inj IMPRESSION: Intraoperative imaging provided for caudal block. Electronically Signed: Tristan De La Garza MD at 15:35 EDT , Service support ,
[2020-10-31] MEDS: Lidocaine 1% (5 ml sdv) 5 ML Vial (11:09)
[2020-10-31] MEDS: MethylPREDNISolone Acetate 80 MG/ML Vial (11:09)
[2020-10-31] MEDS: Bupivacaine 0.25% 30 ML Vial (11:09)
[2020-10-31] MEDS: 0.9% Normal Saline (Pres. free 10 ML Vial (11:09)
[2020-10-31 12:00] LABS: Bedside Glucose 120 mg/dL (70-110)
--- NOTE | 2020-10-31 12:46 | PCM.OPRPT ---
Report of Operation Date of Procedure: 10/31/20 Description of Surgical Findings:: PREOPERATIVE DIAGNOSIS: Lumbosacral radiculopathy, lumbosacral degenerative disc disease, lumbosacral spinal stenosis POSTOPERATIVE DIAGNOSIS: Lumbosacral radiculopathy, lumbosacral degenerative disc disease, lumbosacral spinal stenosis PROCEDURE PERFORMED: Diagnostic/therapeutic caudal epidural steroid injection. ANESTHESIA: MAC. BLOOD LOSS: Minimal. COMPLICATIONS: None. DESCRIPTION OF PROCEDURE: History and physical of today was reviewed. Risks and benefits of the procedure were explained. The patient understood and agreed to proceed. Informed consent was obtained. IV inserted per routine protocol. The patient was taken to the operating room and placed in the prone position with a pillow positioned underneath the abdomen. The lower back and tailbone area was prepped and draped in a sterile fashion using iodine x3. Under fluoroscopy guidance on a lateral view, the caudal space was identified. The skin and subcutaneous tissue was anesthetized with approximately 3 mL of 1% lidocaine using a 25-gauge regular needle. Under direct visualization with fluoroscopy, using a 22-gauge 3-1/2-inch spinal needle, the needle was advanced via the skin through the sacral hiatus. The tip of the needle was passed through the sacrococcygeal ligament and advanced to approximately S4 area. After negative aspiration of blood or CSF, a total of 3 mL of contrast was injected to confirm correct placement of the needle as well as cephalad spread. The spread was followed to approximately L5 area. After confirmation on AP as well as lateral view and repeated negative aspiration, a total of 15 mL of preservative-free 0.125% Marcaine with 80 mg of Depo-Medrol was injected easily. The needle was then removed intact. The patient experienced no sign or symptoms of intrathecal or intravascular injection. The patient experienced no paresthesia. The procedure was completed without any apparent difficulty or any complications. The patient appeared to tolerate it well. ASSESSMENT AND PLAN: This is a 65-year-old female with lumbosacral radiculopathy, lumbosacral degenerative disc disease, lumbosacral spinal stenosis status post diagnostic/therapeutic caudal epidural steroid injection patient will continue her current medications, patient will follow in approximately 2 weeks for reevaluation.
== END 2020-10-31 12:21 | disposition home or self-care (01) ==
LOC: SDC 09:46 → AC 09:56
PROVIDERS: PCP Family Medicine; Referring Provider Anesthesiology Pain Medicine; Visit Provider Anesthesiology Pain Medicine
PROC: 3E0S3BZ Introduction of Anesthetic Agent into Epidural Space, Percutaneous Approach (ICD-10-PCS; CPT 62282; principal; 2020-10-31 11:15)
DX: M47.27 Other spondylosis with radiculopathy, lumbosacral region (principal); M51.17 Intervertebral disc disorders with radiculopathy, lumbosacral region; M48.07 Spinal stenosis, lumbosacral region; M43.16 Spondylolisthesis, lumbar region; M46.96 Unspecified inflammatory spondylopathy, lumbar region; E11.40 Type 2 diabetes mellitus with diabetic neuropathy, unspecified; M79.7 Fibromyalgia; E03.9 Hypothyroidism, unspecified; E78.5 Hyperlipidemia, unspecified; I11.0 Hypertensive heart disease with heart failure; I50.9 Heart failure, unspecified; F32.9 Major depressive disorder, single episode, unspecified; K21.9 Gastro-esophageal reflux disease without esophagitis; M10.9 Gout, unspecified; L71.9 Rosacea, unspecified; M06.9 Rheumatoid arthritis, unspecified; G47.30 Sleep apnea, unspecified; G25.81 Restless legs syndrome; I25.2 Old myocardial infarction; I42.9 Cardiomyopathy, unspecified; E78.00 Pure hypercholesterolemia, unspecified; Z78.0 Asymptomatic menopausal state; Z86.2 Personal history of diseases of the blood and blood-forming organs and certain disorders involving the immune mechanism; Z86.711 Personal history of pulmonary embolism; Z79.4 Long term (current) use of insulin; Z79.82 Long term (current) use of aspirin; Z79.899 Other long term (current) drug therapy; Z79.891 Long term (current) use of opiate analgesic
CPT/HCPCS: 62323; 64483; 77003; 82962; J7120; J3490

== ENCOUNTER → 2020-11-30 14:55 | Outpatient (CLI) | payer MEDICARE, MEDICAID, SELFPAY ==
[2020-11-30 14:18] VITALS: BMI 52.0
[2020-11-30 15:15] LABS: Allen Test Positive; Base Excess -1 mmol/L (-2 to +2); Bicarbonate 24.5 mmol/L (22-26); Blood Gas Specimen Type ART; FI02 21; PO2 65 mmHG (75-100); SITE R Radial; SO2 92 % (95-99); Total Carbon Dioxide 26 mmol/L; pCO2 41.6 mmHg (35-45); pH 7.38 (7.35-7.45)
[2020-11-30 17:11] LABS: T4 Free Direct 1.49 ng/dL (0.76-1.46); Thyroid Stim Hormone (TSH) 0.82 uIU/mL (0.358-3.74)
== END ==
PROVIDERS: PCP Family Medicine; Referring Provider Internal Medicine Pulmonary Disease; Visit Provider Internal Medicine Pulmonary Disease
DX: I10 Essential (primary) hypertension (principal); R06.00 Dyspnea, unspecified; G47.33 Obstructive sleep apnea (adult) (pediatric)
CPT/HCPCS: 36415; 36600; 82803; 84439; 84443

== ENCOUNTER 2020-12-15 16:27 | Emergency (ER) | payer MEDICARE, MEDICAID, SELFPAY ==
[2020-11-30 14:18] VITALS: BMI 52.0
[2020-12-15 16:28] VITALS: BP 179/145; PULSE 79; RESP 18; TEMP 36.2; O2SAT 90; BMI 51.3
--- NOTE | 2020-12-15 17:24 | RAD_ITS ---
STUDY: X-RAY - LUMBAR SPINE REASON FOR EXAM: Female, 65 years old. Back pain TECHNIQUE: 2 view(s) of the lumbar spine were obtained. COMPARISON: None FINDINGS: Normal lumbar lordosis. There is no substantial scoliosis. There is a normal alignment of the vertebrae. There is multilevel endplate spondylosis of the lumbar vertebrae. Normal disc space heights. The soft tissue structures are unremarkable. RAD/Lumbar Spine 2 or 3 Views IMPRESSION: Multilevel endplate spondylosis. Electronically Signed: Donna Robertson MD at 18:28 EDT Tel , Service support ,
--- NOTE | 2020-12-15 17:27 | EX.ED.DYSGE1 ---
HPI History of Present Illness Chief Complaint: Edema Narrative Narrative: Patient presents with back pain for the past few weeks it is now radiating to her left leg. Chief complaints is edema but patient has no worsening edema than before. She has no calf pain or inner thigh pain her pain is lateral leg and back pain. She has no bowel or bladder compromise she has no urinary retention symptoms. She has no saddle anesthesia. She has no foot drop or weakness. She has no paresthesias. She did try physical therapy for this back pain for the past 2 weeks but did not get significant improvement. She is on [place] and she is scheduled for an outpatient MRI. Past medical history: Reviewed in the computer and at bedside Medications: Reviewed Social history: Noncontributory Review of systems: All systems negative except as indicated General: No fever Eyes: No visual changes ENT: No upper airway congestion, normal voice Neck: No neck pain Cardiovascular: No chest pain Respiratory: No shortness of breath. She does complain of a slight cough. This is chronic. Gastrointestinal: No abdominal pain, nausea vomiting or diarrhea Genitourinary: No dysuria Musculoskeletal: Denies myalgias no difficulty with ambulation Back: Back pain as in HPI Skin: No rash Neurological: No memory loss, confusion or any focal weakness Psych: No recent behavioral changes Hematologic: No easy bleeding or easy bruising [facility] Medical History (Updated 12/15/20 @ 18:[address] Son Long MD) Abdominal pain Benign essential HTN Candidiasis of breast Chronic pain syndrome Depression Diabetic gastroparesis Diabetic gastroparesis Diabetic infection of right foot Diverticulitis Fibromyalgia Fibromyalgia GERD (gastroesophageal reflux disease) Hammer toe of left foot Hammer toe of right foot History of CVA (cerebrovascular accident) HLD (hyperlipidemia) Iron deficiency anemia Morbid obesity with BMI of 40.0-44.9, adult NSTEMI (non-ST elevated myocardial infarction) QIAN (obstructive sleep apnea) Paroxysmal atrial fibrillation Restless leg syndrome Rheumatoid arthritis Seizure disorder Sepsis Takotsubo cardiomyopathy Takotsubo cardiomyopathy Thyroid disease Toe osteomyelitis, right Type 2 diabetes mellitus 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 2 diabetes mellitus with diabetic polyneuropathy Ulcer of right foot Ulcer of right foot with fat layer exposed UTI (urinary tract infection) Home Medications levothyroxine 75 mcg PO DAILY 09/17/18 [History Last Taken 06/20/19 10:00] hydroxychloroquine 200 mg PO BIDCM 11/30/18 [History Last Taken 06/20/19 10:00] allopurinol 100 mg tablet 100 mg PO QHS tab 03/30/19 [History Last Taken 06/19/19 23:00] aspirin 81 mg PO DAILY 08/16/19 [History Last Taken Unknown] ropinirole 1 mg PO QHS 08/16/19 [History Last Taken Unknown] hydrocodone 5 mg-acetaminophen 325 mg tablet 2 tab PO Q6H PRN 12/03/19 [History Last Taken Unknown] furosemide 40 mg tablet 40 mg PO DAILY PRN tab 03/09/20 [History Last Taken 10/28/20 0800] pregabalin 225 mg capsule 225 mg PO BID cap 04/14/20 [History Last Taken Unknown] cholecalciferol (vitamin D3) 25 mcg (1,000 unit) capsule 25 mcg PO DAILY 08/03/20 [History Last Taken Unknown] ferrous sulfate 325 mg PO DAILY 08/29/20 [History Last Taken Unknown] haloperidol 1 mg PO TID PRN PRN 08/29/20 [History Last Taken Unknown] ondansetron HCl 8 mg PO Q6H PRN PRN 08/29/20 [History Last Taken Unknown] simvastatin 40 mg PO QHS 08/29/20 [History Last Taken Unknown] albuterol sulfate 2.5 mg INHALATION DAILY 09/30/20 [History Last Taken Unknown] metformin 500 mg PO DAILY 10/27/20 [History Last Taken Unknown] promethazine 25 mg PO TID PRN 10/27/20 [History Last Taken Unknown] carvedilol 12.5 mg tablet See Rx Instructions .ROUTE .COMPLEX #180 tablet 11/30/20 [Rx Last Taken Unknown] insulin NPH isoph U-100 human 100 unit/mL (3 mL) subcutaneous pen 75 unit SC BID ml 11/30/20 [History Last Taken Unknown] tizanidine 4 mg PO QHS #10 cap 12/15/20 [Rx Last Taken Unknown] Allergy/AdvReac Type Severity Reaction Status Date / Time ciprofloxacin [From Cipro] Allergy short of Verified 12/15/20 16:32 breath cyclobenzaprine Allergy rash Verified 12/15/20 16:32 levofloxacin [From Levaquin] Allergy PT UNSURE Verified 12/15/20 16:32 OF REACTION sulfamethoxazole Allergy itch Verified 12/15/20 16:32 topiramate Allergy PT UNSURE Verified 12/15/20 16:32 OF REACTION trimethoprim Allergy itch Verified 12/15/20 16:32 valacyclovir [From Valtrex] Allergy other Verified 12/15/20 16:32 ketorolac [From Toradol] AdvReac Other Verified 12/15/20 16:32 Family History Mother Myocardial infarction Asthma Diabetes Father Congestive heart failure Other Heart disease Surgical History history left foot surgery History of cholecystectomy History of knee surgery History of left heart catheterization (03/09/19) Social History (Updated 11/30/20 @ 14:[address] Son Ellison MD) Smoking Status: Never smoker alcohol intake: never substance use type: does not use EXAM Physical Exam Narrative Exam Narrative: Vitals reviewed General: Patient appears in some discomfort. BMI is 51. HEENT: Moist mucous membranes Neck: Nontender Cardiovascular normal heart rate Respiratory: No respiratory difficulty speaking in full sentences Abdomen: Soft and nontender, there is no suprapubic mass or pain Back: There is some tenderness over the lumbar region, pain is spinal and paraspinal both. Extremities: Moves all extremities without joint pain or signs of trauma Neurological: There is normal plantar flexion and dorsiflexion of both feet and great toes. Patellar and Achilles reflexes are normal. Normal strength and sensation. There is however a positive straight leg test. Skin: No rash Psychiatric: Slightly anxious. Const Vital Signs: 12/15/20 16:28 Temperature 97.2 F L Temperature Source Temporal Pulse Rate 79 Respiratory Rate 18 Blood Pressure 179/145 H Blood Pressure Mean 156 Pulse Ox 90 Oxygen Delivery Method Room Air MDM MDM MDM Narrative Medical decision making narrative: Patient has a normal neurological exam there is no signs of cauda equina. She appears well I will discharge her in stable condition. She has analgesia at home per PCP I will write muscle relaxants. Radiography Chest X-Ray - ED: 1 View, Read by ED Physician, Read by Radiologist and Normal Diagnostic Testing: Radiology Impression Lumbar Spine X-Ray 12/15/20 17:24 IMPRESSION: Multilevel endplate spondylosis. Electronically Signed: Donna Robertson MD at 18:28 EDT Tel , Service support , Chest X-Ray 12/15/20 17:50 IMPRESSION: Stable right basilar opacity may be secondary to underlying atelectasis and/or pneumonia. Electronically Signed: Donna Robertson MD at 18:27 EDT Tel , Service support , Chest x-ray read by myself as well as the radiologist does not show any pneumonia Lumbar x-ray read by myself as well as the radiology is shows DJD but no acute fracture. Discharge Plan Triage Chief Complaint: Edema ED Provider: Son Long Dx/Rx/DC Orders Clinical Impression: Back pain Instructions: ED Back Pain (Acute or Chronic) Prescriptions: New tizanidine 4 mg capsule 4 mg PO QHS Qty: 10 RF: 0 No Action hydrocodone-acetaminophen [[place]adstone] 5-325 mg tablet 2 tab PO Q6H PRN (Reason: Pain Or Fever) RF: 0 Humulin N NPH Insulin KwikPen 100 unit/mL (3 mL) insulin pen 75 unit SC BID RF: 0 carvedilol 12.5 mg tablet See Rx Instructions .ROUTE .COMPLEX Qty: 180 RF: 3 levothyroxine 75 MCG tablet 75 mcg PO DAILY RF: 0 allopurinol 100 mg tablet 100 mg PO QHS RF: 0 hydroxychloroquine 200 MG tablet 200 mg PO BIDCM RF: 0 ropinirole 1 MG tablet 1 mg PO QHS RF: 0 aspirin 81 MG tablet,chewable 81 mg PO DAILY RF: 0 furosemide 40 mg tablet 40 mg PO DAILY PRN (Reason: diuretic) RF: 0 pregabalin 225 mg capsule 225 mg PO BID RF: 0 haloperidol 0.5 MG tablet 1 mg PO TID PRN PRN (Reason: Nausea) RF: 0 ondansetron HCl 8 MG tablet 8 mg PO Q6H PRN PRN (Reason: Nausea) RF: 0 simvastatin 40 MG tablet 40 mg PO QHS RF: 0 ferrous sulfate 325 MG tablet 325 mg PO DAILY RF: 0 albuterol sulfate 2.5 MG/3 ML solution for nebulization 2.5 mg INHALATION DAILY RF: 0 metformin 500 MG tablet 500 mg PO DAILY RF: 0 promethazine 25 MG tablet 25 mg PO TID PRN (Reason: Nausea) RF: 0 cholecalciferol (vitamin D3) 25 mcg (1,000 unit) capsule 25 mcg PO DAILY RF: 0 Primary Care Provider: Devan Parks Referrals: Devan Parks MD [Primary Care Provider] - 2 Days
[2020-12-15] MEDS: HYDROmorphone 1 MG/ML Syringe IM (17:44)
--- NOTE | 2020-12-15 17:50 | RAD_ITS ---
STUDY: X-RAY CHEST REASON FOR EXAM: Female, 65 years old. Cough TECHNIQUE: Single frontal view of the chest. COMPARISON: 10/28/2020 FINDINGS: There is no new focal consolidation. There is a stable ill-defined opacity at the right lung base. Normal size heart. Normal mediastinum and judith. Normal visualized pulmonary arteries. There is atherosclerotic calcification of the aortic arch. Normal visualized thoracic spine. Normal visualized ribs, clavicles, and shoulders. There is no demonstrated abnormality of the visualized soft tissue structures of the upper abdomen. RAD/Chest 1 View (Portable) IMPRESSION: Stable right basilar opacity may be secondary to underlying atelectasis and/or pneumonia. Electronically Signed: Donna Robertson MD at 18:27 EDT Tel , Service support ,
[2020-12-15 18:52] VITALS: BP 172/80; PULSE 82; RESP 16; O2SAT 93
== END 2020-12-15 18:58 | disposition home or self-care (01) ==
LOC: ED 17:32
PROVIDERS: Emergency Provider Emergency Medicine; PCP Family Medicine
DX: M54.5 Low back pain (principal); R05 Cough; I10 Essential (primary) hypertension; G89.4 Chronic pain syndrome; E11.43 Type 2 diabetes mellitus with diabetic autonomic (poly)neuropathy; K31.84 Gastroparesis; Z87.19 Personal history of other diseases of the digestive system; M79.7 Fibromyalgia; K21.9 Gastro-esophageal reflux disease without esophagitis; E78.5 Hyperlipidemia, unspecified; D50.9 Iron deficiency anemia, unspecified; E66.01 Morbid (severe) obesity due to excess calories; Z68.43 Body mass index [BMI] 50.0-59.9, adult; I25.2 Old myocardial infarction; G47.33 Obstructive sleep apnea (adult) (pediatric); I48.0 Paroxysmal atrial fibrillation; M06.9 Rheumatoid arthritis, unspecified; G25.81 Restless legs syndrome; G40.909 Epilepsy, unspecified, not intractable, without status epilepticus; I51.81 Takotsubo syndrome; E07.9 Disorder of thyroid, unspecified; E11.42 Type 2 diabetes mellitus with diabetic polyneuropathy; Z86.73 Personal history of transient ischemic attack (TIA), and cerebral infarction without residual deficits; Z86.19 Personal history of other infectious and parasitic diseases; Z87.440 Personal history of urinary (tract) infections; Z79.4 Long term (current) use of insulin; Z79.82 Long term (current) use of aspirin; Z79.899 Other long term (current) drug therapy
CPT/HCPCS: 71045; 72100; 96372; 99282

== ENCOUNTER 2020-12-20 21:29 | Emergency (ER) | payer MEDICARE, MEDICAID, SELFPAY ==
[2020-12-20 21:30] VITALS: BP 167/121; PULSE 77; RESP 15; TEMP 36.6; O2SAT 94; BMI 51.3
[2020-12-20] MEDS: Ondansetron 4 MG/2 ML Vial IV (22:10)
[2020-12-20] MEDS: morphine 8 MG/ML Syringe IV (22:12)
--- NOTE | 2020-12-20 22:12 | EDS_ITS ---
HPI History of Present Illness Chief Complaint: Lower Extremity Injury Informant: patient Onset/Context/Timing Onset: Days Context: Sudden Onset Chronic pain exacerbated by: Walking and weightbearing Timing: Continuous Quality: Dull and Aching Location: Lumbar, Buttock and Left Leg Current Severity: Moderate Maximum Severity: Severe Worsened by: improves with Ambulation and Lifting Relieved by: Nothing Associated Symptoms Associated Symptoms: Radiation to Left Leg; Negative for Numbness, Tingling, Radiation to Right Leg, Fever, Abdominal Pain, Dysuria, Unable to Ambulate, Unable to Transfer, Urinary Retention, Urinary Incontinence, Constipation and Fecal Incontinence Narrative Narrative: Patient is a 65-year-old woman in pain management who has chronic back pain. She presents because of pain that radiates over her left buttocks groin down to her left knee. She denies paresthesia, anesthesia medics. She has bowel bladder dysfunction. She denies saddle paresthesia or anesthesia. She denies foot drop. Denies buckling of her knees going up or down steps. She denies fever, chills night sweats. She has had no recent back injection. She gives no history of trauma. She denies symptoms of claudication. Prior similar symptoms: Yes Recent Illness/Hospitalization: No PFSH [facility] Medical History (Updated 12/20/20 @ 22:[address] Jose Alberto Umana MD) Abdominal pain Benign essential HTN Candidiasis of breast Chronic pain syndrome Depression Diabetic gastroparesis Diabetic gastroparesis Diabetic infection of right foot Diverticulitis Fibromyalgia Fibromyalgia GERD (gastroesophageal reflux disease) Hammer toe of left foot Hammer toe of right foot History of CVA (cerebrovascular accident) HLD (hyperlipidemia) Iron deficiency anemia Morbid obesity with BMI of 40.0-44.9, adult NSTEMI (non-ST elevated myocardial infarction) QIAN (obstructive sleep apnea) Paroxysmal atrial fibrillation Restless leg syndrome Rheumatoid arthritis Seizure disorder Sepsis Takotsubo cardiomyopathy Takotsubo cardiomyopathy Thyroid disease Toe osteomyelitis, right Type 2 diabetes mellitus 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 2 diabetes mellitus with diabetic polyneuropathy Ulcer of right foot Ulcer of right foot with fat layer exposed UTI (urinary tract infection) Home Medications levothyroxine 75 mcg PO DAILY 09/17/18 [History Last Taken 06/20/19 10:00] hydroxychloroquine 200 mg PO BIDCM 11/30/18 [History Last Taken 06/20/19 10:00] allopurinol 100 mg tablet 100 mg PO QHS tab 03/30/19 [History Last Taken 06/19/19 23:00] aspirin 81 mg PO DAILY 08/16/19 [History Last Taken Unknown] ropinirole 1 mg PO QHS 08/16/19 [History Last Taken Unknown] hydrocodone 5 mg-acetaminophen 325 mg tablet 2 tab PO Q6H PRN 12/03/19 [History Last Taken Unknown] furosemide 40 mg tablet 40 mg PO DAILY PRN tab 03/09/20 [History Last Taken 10/28/20 0800] pregabalin 225 mg capsule 225 mg PO BID cap 04/14/20 [History Last Taken Unknown] cholecalciferol (vitamin D3) 25 mcg (1,000 unit) capsule 25 mcg PO DAILY 08/03/20 [History Last Taken Unknown] ferrous sulfate 325 mg PO DAILY 08/29/20 [History Last Taken Unknown] haloperidol 1 mg PO TID PRN PRN 08/29/20 [History Last Taken Unknown] ondansetron HCl 8 mg PO Q6H PRN PRN 08/29/20 [History Last Taken Unknown] simvastatin 40 mg PO QHS 08/29/20 [History Last Taken Unknown] albuterol sulfate 2.5 mg INHALATION DAILY 09/30/20 [History Last Taken Unknown] metformin 500 mg PO DAILY 10/27/20 [History Last Taken Unknown] promethazine 25 mg PO TID PRN 10/27/20 [History Last Taken Unknown] carvedilol 12.5 mg tablet See Rx Instructions .ROUTE .COMPLEX #180 tablet 11/30/20 [Rx Last Taken Unknown] insulin NPH isoph U-100 human 100 unit/mL (3 mL) subcutaneous pen 75 unit SC BID ml 11/30/20 [History Last Taken Unknown] tizanidine 4 mg PO QHS #10 cap 12/15/20 [Rx Last Taken Unknown] Allergy/AdvReac Type Severity Reaction Status Date / Time ciprofloxacin [From Cipro] Allergy short of Verified 12/20/20 21:30 breath cyclobenzaprine Allergy rash Verified 12/20/20 21:30 levofloxacin [From Levaquin] Allergy PT UNSURE Verified 12/20/20 21:30 OF REACTION sulfamethoxazole Allergy itch Verified 12/20/20 21:30 topiramate Allergy PT UNSURE Verified 05/04/21 21:30 OF REACTION trimethoprim Allergy itch Verified 12/20/20 21:30 valacyclovir [From Valtrex] Allergy other Verified 12/20/20 21:30 ketorolac [From Toradol] AdvReac Other Verified 12/20/20 21:30 Family History Mother Myocardial infarction Asthma Diabetes Father Congestive heart failure Other Heart disease Surgical History history left foot surgery History of cholecystectomy History of knee surgery History of left heart catheterization (03/09/19) Social History Smoking Status: Never smoker alcohol intake: never substance use type: does not use ROS ROS ED Constitutional Constitutional ED: Denies chills, fever(s), subjective, sweats or weight loss ENT ENT ED: Denies ear pain, rhinorrhea or sore throat Cardiovascular Cardiovascular: Denies chest pain, orthopnea, palpitations or paroxysmal nocturnal dyspnea Respiratory/Chest Respiratory/Chest: Denies dyspnea, dyspnea on exertion, orthopnea or paroxysmal nocturnal dyspnea Gastrointestinal Gastrointestinal: Denies abdominal pain, constipation, diarrhea, nausea or vomiting Genitourinary Genitourinary ED: Denies dysuria, hematuria or urinary frequency Musculoskeletal Musculoskeletal: Reports back pain; Denies arthralgias, myalgias or neck pain Integumentary Denies rash Neurologic Neurologic: Denies paresthesias or weakness Endocrine Endocrinology: Denies polydipsia, polyphagia or polyuria Hematologic/Lymphatic Hematologic/Lymphatic: Denies easy bleeding or easy bruising EXAM Physical Exam Const Vital Signs: 12/20/20 21:30 12/20/20 22:44 Temperature 97.8 F Temperature Source Temporal Pulse Rate 77 73 Respiratory Rate 15 16 Blood Pressure 167/121 H 149/74 H Blood Pressure Mean 136 99 Pulse Ox 94 92 Oxygen Delivery Method Room Air Room Air Positive well nourished, well developed and obese General Appearance ED: well developed; Negative for pallor Nutritional Appearance: obese HEENT Reports moist mucous membranes and other Nares patent with no drainage. Eyes PERRL and EOMs intact bilaterally General Eye ED: Negative for pale conjunctiva or scleral icterus Neck no lymphadenopathy, supple and no JVD Resp normal respiratory effort and clear to auscultation bilaterally Effort and Inspection: pain with movement Cardio regular rate, regular rhythm, S1 normal heart sound, S2 normal heart sound and no murmurs GI normal to inspection, nondistended, normoactive bowel sounds Back/Spine normal to inspection Back/Spine Narrative: Patient had a negative femoral stretch test. Gait was observed. She not have a foot drop. She able to walk on heels and toes. She able to perform 1 legged squat right and left side. She has normal sensation over L3, L4, L5 and S1 dermatome. General Back: Negative for CVA tenderness Thoracic Spine / Upper Back: paraspinal muscle tenderness Lumbar Spine / Lower Back: straight leg raise negative bilaterally Extremity normal to inspection and no clubbing, cyanosis or edema General Extremety ED: Negative for tenderness Right Lower Extremity: hip joint inspection (Normal), ROM (Normal) and neurovascular exam (Normal 2+ PT and DP) Left Lower Extremity: hip joint inspection (Normal), palpation (No pain to palpation), ROM (Normal range of motion) and neurovascular exam (Deep PT 1+) Neuro oriented x3 and no sensory deficits noted Sensorium / Orientation: alert Motor Exam: strength 5/5 throughout Deep Tendon Reflexes: Rt Patellar (L4): 1+, Lt Patellar (L4): 1+, Rt Ankle (S1): 1+ and Lt Ankle (S1): 1+ Deep Tendon Reflexes Back: Rt Patellar (L4): 1+, Lt Patellar (L4): 1+, Rt Ankle (S1): 1+ and Lt Ankle (S1): 1+ Plantar Reflex: Downgoing: bilateral Psych mental status grossly normal Skin no rashes or lesions noted and no wounds General Skin Exam: Negative for jaundice or pallor MDM MDM MDM Narrative Medical decision making narrative: With pain radiating anteriorly 1 needs to consider L3-L4 radiculopathy. She is scheduled for an outpatient MRI the of this month. Since there is no objective deficit an emergent MRI is not warranted. Since she is morbidly obese and this may represent referred pain from hip joint pathology, DJD x-ray of the femur was obtained which will assess the femoral head and acetabulum as well as the distal femur/femoral condyles. Patient was medicated with IV Zofran and morphine 4 and 8 mg respectively. Radiography X-Ray: Read by ED Physician (2 view x-ray of the left femur was obtained there is degenerative changes noted of the hip joint and knee joint.), No Fracture and DJD Diagnostic Testing: Radiology Impression Femur X-Ray 12/20/20 22:30 IMPRESSION: Degenerative changes of the hip and knee. The left femur is otherwise unremarkable. Electronically Signed: William Gupta DO at 22:48 EDT Tel [phone], Service support , Discharge Plan Triage Chief Complaint: Lower Extremity Injury Other Complaint: Nausea/Vomiting ED Provider: Jose Alberto Umana Dx/Rx/DC Orders Clinical Impression: Osteoarthritis of left knee, Osteoarthritis of left hip, Acute exacerbation of chronic low back pain Instructions: ED Back Pain (Acute or Chronic), ED Osteoarthritis Prescriptions: No Action hydrocodone-acetaminophen [[place]] 5-325 mg tablet 2 tab PO Q6H PRN (Reason: Pain Or Fever) RF: 0 Humulin N NPH Insulin KwikPen 100 unit/mL (3 mL) insulin pen 75 unit SC BID RF: 0 carvedilol 12.5 mg tablet See Rx Instructions .ROUTE .COMPLEX Qty: 180 RF: 3 levothyroxine 75 MCG tablet 75 mcg PO DAILY RF: 0 allopurinol 100 mg tablet 100 mg PO QHS RF: 0 hydroxychloroquine 200 MG tablet 200 mg PO BIDCM RF: 0 ropinirole 1 MG tablet 1 mg PO QHS RF: 0 aspirin 81 MG tablet,chewable 81 mg PO DAILY RF: 0 furosemide 40 mg tablet 40 mg PO DAILY PRN (Reason: diuretic) RF: 0 pregabalin 225 mg capsule 225 mg PO BID RF: 0 haloperidol 0.5 MG tablet 1 mg PO TID PRN PRN (Reason: Nausea) RF: 0 ondansetron HCl 8 MG tablet 8 mg PO Q6H PRN PRN (Reason: Nausea) RF: 0 simvastatin 40 MG tablet 40 mg PO QHS RF: 0 ferrous sulfate 325 MG tablet 325 mg PO DAILY RF: 0 albuterol sulfate 2.5 MG/3 ML solution for nebulization 2.5 mg INHALATION DAILY RF: 0 metformin 500 MG tablet 500 mg PO DAILY RF: 0 promethazine 25 MG tablet 25 mg PO TID PRN (Reason: Nausea) RF: 0 tizanidine 4 mg capsule 4 mg PO QHS Qty: 10 RF: 0 cholecalciferol (vitamin D3) 25 mcg (1,000 unit) capsule 25 mcg PO DAILY RF: 0 Primary Care Provider: Devan Parks Referrals: Devan Parks MD [Primary Care Provider] - As Needed Activity Restrictions/Additional Instructions: Follow-up with your pain management doctor and keep appointment for MRI. Disposition Disposition: Home, self care
--- NOTE | 2020-12-20 22:30 | RAD_ITS ---
STUDY: X-RAY - LEFT FEMUR REASON FOR STUDY: Female, 65 years old. Lateral pain for one week. Patient denies injury. TECHNIQUE: AP and lateral view(s) of the femur. COMPARISON: None. FINDINGS: Normal visualized femur. XR Femur Min 2 Views INDICATION:65 years old Female presenting with Injury/Pain. COMPARISON: None. FINDINGS: . show no fracture or dislocation. The bone density and alignment are within normal limits. IMPRESSION: No fracture. There are degenerative changes of the knee and hip Normal visualized soft tissue structure. RAD/Femur Min 2 Views IMPRESSION: Degenerative changes of the hip and knee. The left femur is otherwise unremarkable. Electronically Signed: William Gupta DO at 22:48 EDT Tel [phone], Service support ,
[2020-12-20 22:44] VITALS: BP 149/74; PULSE 73; RESP 16; O2SAT 92
== END 2020-12-20 23:40 | disposition home or self-care (01) ==
PROVIDERS: Emergency Provider Emergency Medicine; PCP Family Medicine
DX: M17.12 Unilateral primary osteoarthritis, left knee (principal); M16.12 Unilateral primary osteoarthritis, left hip; M54.5 Low back pain; D50.9 Iron deficiency anemia, unspecified; E11.43 Type 2 diabetes mellitus with diabetic autonomic (poly)neuropathy; K31.84 Gastroparesis; E66.01 Morbid (severe) obesity due to excess calories; Z68.41 Body mass index [BMI] 40.0-44.9, adult; E78.5 Hyperlipidemia, unspecified; F32.9 Major depressive disorder, single episode, unspecified; G47.33 Obstructive sleep apnea (adult) (pediatric); G89.4 Chronic pain syndrome; I48.0 Paroxysmal atrial fibrillation; K21.9 Gastro-esophageal reflux disease without esophagitis; I25.2 Old myocardial infarction; M79.7 Fibromyalgia; L97.512 Non-pressure chronic ulcer of other part of right foot with fat layer exposed; E11.621 Type 2 diabetes mellitus with foot ulcer; M20.41 Other hammer toe(s) (acquired), right foot; G25.81 Restless legs syndrome; M06.9 Rheumatoid arthritis, unspecified; M20.42 Other hammer toe(s) (acquired), left foot; I51.81 Takotsubo syndrome; G40.909 Epilepsy, unspecified, not intractable, without status epilepticus; Z86.19 Personal history of other infectious and parasitic diseases; Z86.73 Personal history of transient ischemic attack (TIA), and cerebral infarction without residual deficits; Z87.440 Personal history of urinary (tract) infections; Z79.4 Long term (current) use of insulin; Z79.82 Long term (current) use of aspirin; Z79.899 Other long term (current) drug therapy
CPT/HCPCS: 73552; 96374; 96375; 99285; J2405

== ENCOUNTER 2020-12-21 14:58 | Emergency (ER) | payer MEDICARE, MEDICAID, SELFPAY ==
[2020-12-20 21:30] VITALS: BMI 51.3
[2020-12-21 14:59] VITALS: BP 169/92; PULSE 76; RESP 16; TEMP 36; O2SAT 94; BMI 51.3
[2020-12-21] MEDS: Morphine 4 MG/ML Syringe IM ×2 (15:30→17:06)
--- NOTE | 2020-12-21 15:35 | ED.VIS.LOWEX ---
HPI History of Present Illness Chief Complaint: Lower Extremity Injury Informant: patient Onset/Context/Timing Onset: Weeks (1) Context: Gradual Onset Quality of Pain: Sharp Location: Left hip and thigh Current Severity: Severe Maximum Severity: Severe Worsened by: Ambulation Relieved by: Rest Associated Symptoms Associated Symptoms: Negative for Parasthesia and Weakness Narrative Narrative: Patient presents with left thigh and hip pain that has been getting progressively worse over the past week. Patient was seen here for this yesterday and had x-rays taken which showed degenerative changes but no acute fracture. Patient states her pain became worse today. Patient states that yesterday when she received a morphine shot her pain felt better. Patient states she contacted her primary care physician for follow-up care. Patient states that he referred her to pain management for further management of this pain. Patient states she has been unable to get in contact with her pain management physician yet. Patient denies any new injury or trauma. [facility] Medical History (Updated 12/21/20 @ 16:[address] Bebeto Lugo, DO) Abdominal pain Benign essential HTN Candidiasis of breast Chronic pain syndrome Depression Diabetic gastroparesis Diabetic gastroparesis Diabetic infection of right foot Diverticulitis Fibromyalgia Fibromyalgia GERD (gastroesophageal reflux disease) Hammer toe of left foot Hammer toe of right foot History of CVA (cerebrovascular accident) HLD (hyperlipidemia) Iron deficiency anemia Morbid obesity with BMI of 40.0-44.9, adult NSTEMI (non-ST elevated myocardial infarction) QIAN (obstructive sleep apnea) Paroxysmal atrial fibrillation Restless leg syndrome Rheumatoid arthritis Seizure disorder Sepsis Takotsubo cardiomyopathy Takotsubo cardiomyopathy Thyroid disease Toe osteomyelitis, right Type 2 diabetes mellitus 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 2 diabetes mellitus with diabetic polyneuropathy Ulcer of right foot Ulcer of right foot with fat layer exposed UTI (urinary tract infection) Home Medications levothyroxine 75 mcg PO DAILY 09/17/18 [History Last Taken 06/20/19 10:00] hydroxychloroquine 200 mg PO BIDCM 11/30/18 [History Last Taken 06/20/19 10:00] allopurinol 100 mg tablet 100 mg PO QHS tab 03/30/19 [History Last Taken 06/19/19 23:00] aspirin 81 mg PO DAILY 08/16/19 [History Last Taken Unknown] ropinirole 1 mg PO QHS 12/29/19 [History Last Taken Unknown] hydrocodone 5 mg-acetaminophen 325 mg tablet 2 tab PO Q6H PRN 12/03/19 [History Last Taken Unknown] furosemide 40 mg tablet 40 mg PO DAILY PRN tab 03/09/20 [History Last Taken 10/28/20 0800] pregabalin 225 mg capsule 225 mg PO BID cap 04/14/20 [History Last Taken Unknown] cholecalciferol (vitamin D3) 25 mcg (1,000 unit) capsule 25 mcg PO DAILY 08/03/20 [History Last Taken Unknown] ferrous sulfate 325 mg PO DAILY 08/29/20 [History Last Taken Unknown] haloperidol 1 mg PO TID PRN PRN 08/29/20 [History Last Taken Unknown] ondansetron HCl 8 mg PO Q6H PRN PRN 08/29/20 [History Last Taken Unknown] simvastatin 40 mg PO QHS 08/29/20 [History Last Taken Unknown] albuterol sulfate 2.5 mg INHALATION DAILY 09/30/20 [History Last Taken Unknown] metformin 500 mg PO DAILY 10/27/20 [History Last Taken Unknown] promethazine 25 mg PO TID PRN 10/27/20 [History Last Taken Unknown] carvedilol 12.5 mg tablet See Rx Instructions .ROUTE .COMPLEX #180 tablet 11/30/20 [Rx Last Taken Unknown] insulin NPH isoph U-100 human 100 unit/mL (3 mL) subcutaneous pen 75 unit SC BID ml 11/30/20 [History Last Taken Unknown] tizanidine 4 mg PO QHS #10 cap 12/15/20 [Rx Last Taken Unknown] Allergy/AdvReac Type Severity Reaction Status Date / Time ciprofloxacin [From Cipro] Allergy short of Verified 12/21/20 15:02 breath cyclobenzaprine Allergy rash Verified 12/21/20 15:02 levofloxacin [From Levaquin] Allergy PT UNSURE Verified 12/21/20 15:02 OF REACTION sulfamethoxazole Allergy itch Verified 12/21/20 15:02 topiramate Allergy PT UNSURE Verified 12/21/20 15:02 OF REACTION trimethoprim Allergy itch Verified 12/21/20 15:02 valacyclovir [From Valtrex] Allergy other Verified 12/21/20 15:02 ketorolac [From Toradol] AdvReac Other Verified 12/21/20 15:02 Family History Mother Myocardial infarction Asthma Diabetes Father Congestive heart failure Other Heart disease Surgical History history left foot surgery History of cholecystectomy History of knee surgery History of left heart catheterization (03/09/19) Social History Smoking Status: Heavy Smoker (>10/day) alcohol intake: never substance use type: does not use ROS ROS ED Constitutional Constitutional ED: Denies chills or fever(s) Eyes Eyes: Denies blurry vision or change in vision ENT ENT ED: Denies rhinorrhea or sore throat Cardiovascular Cardiovascular: Denies chest pain or palpitations Respiratory/Chest Respiratory/Chest: Denies cough or dyspnea Gastrointestinal Gastrointestinal: Denies nausea or vomiting Genitourinary Genitourinary ED: Denies dysuria or hematuria Musculoskeletal Musculoskeletal: Denies back pain or neck pain Integumentary Denies abscess or rash Neurologic Neurologic: Denies paresthesias or weakness Allergic/Immunologic Allergic/Immunologic ED: Denies mouth swelling or urticaria EXAM Physical Exam Const Vital Signs: 12/21/20 14:59 Temperature 96.8 F L Temperature Source Temporal Pulse Rate 76 Respiratory Rate 16 Blood Pressure 169/92 H Blood Pressure Mean 117 Pulse Ox 94 Oxygen Delivery Method Room Air Positive well nourished, well developed and obese General Appearance ED: well developed Nutritional Appearance: obese HEENT Reports moist mucous membranes Neck full ROM and supple Extremity normal to inspection Extremity Narrative: There is some mild tenderness over the left hip laterally and posteriorly. There is slight decreased range of motion in internal and external rotation of the left lower extremity. There is no bony crepitance or step-off. There is no obvious deformity. Neuro oriented x3, CN's II-XII intact bilaterally, moves all extremities and no sensory deficits noted Sensorium / Orientation: alert Motor Exam: strength 5/5 throughout MDM MDM MDM Narrative Medical decision making narrative: Patient was given injection of morphine here. Patient was able to ambulate to the bathroom but states her pain was worse with ambulation. Patient was given a repeat dose of morphine. Patient was instructed to follow-up with her primary care physician and pain management physician as scheduled. Patient was instructed to continue her pain medications as previously prescribed. Patient understood and was agreeable with the plan. All questions were answered. Discharge Plan Triage Chief Complaint: Lower Extremity Injury ED Provider: Bebeto Lugo Dx/Rx/DC Orders Clinical Impression: Chronic pain syndrome Instructions: ED Chronic Pain Prescriptions: No Action hydrocodone-acetaminophen [[place]] 5-325 mg tablet 2 tab PO Q6H PRN (Reason: Pain Or Fever) RF: 0 Humulin N NPH Insulin KwikPen 100 unit/mL (3 mL) insulin pen 75 unit SC BID RF: 0 carvedilol 12.5 mg tablet See Rx Instructions .ROUTE .COMPLEX Qty: 180 RF: 3 levothyroxine 75 MCG tablet 75 mcg PO DAILY RF: 0 allopurinol 100 mg tablet 100 mg PO QHS RF: 0 hydroxychloroquine 200 MG tablet 200 mg PO BIDCM RF: 0 ropinirole 1 MG tablet 1 mg PO QHS RF: 0 aspirin 81 MG tablet,chewable 81 mg PO DAILY RF: 0 furosemide 40 mg tablet 40 mg PO DAILY PRN (Reason: diuretic) RF: 0 pregabalin 225 mg capsule 225 mg PO BID RF: 0 haloperidol 0.5 MG tablet 1 mg PO TID PRN PRN (Reason: Nausea) RF: 0 ondansetron HCl 8 MG tablet 8 mg PO Q6H PRN PRN (Reason: Nausea) RF: 0 simvastatin 40 MG tablet 40 mg PO QHS RF: 0 ferrous sulfate 325 MG tablet 325 mg PO DAILY RF: 0 albuterol sulfate 2.5 MG/3 ML solution for nebulization 2.5 mg INHALATION DAILY RF: 0 metformin 500 MG tablet 500 mg PO DAILY RF: 0 promethazine 25 MG tablet 25 mg PO TID PRN (Reason: Nausea) RF: 0 tizanidine 4 mg capsule 4 mg PO QHS Qty: 10 RF: 0 cholecalciferol (vitamin D3) 25 mcg (1,000 unit) capsule 25 mcg PO DAILY RF: 0 Primary Care Provider: Devan Parks Referrals: Devan Parks MD [Primary Care Provider] - 3-5 Days Disposition Disposition: Home, self care
== END 2020-12-21 17:35 | disposition home or self-care (01) ==
PROVIDERS: Emergency Provider Emergency Medicine; PCP Family Medicine
DX: G89.4 Chronic pain syndrome (principal); D50.9 Iron deficiency anemia, unspecified; E11.43 Type 2 diabetes mellitus with diabetic autonomic (poly)neuropathy; K31.84 Gastroparesis; E66.01 Morbid (severe) obesity due to excess calories; Z68.41 Body mass index [BMI] 40.0-44.9, adult; E78.5 Hyperlipidemia, unspecified; F32.9 Major depressive disorder, single episode, unspecified; I48.0 Paroxysmal atrial fibrillation; K21.9 Gastro-esophageal reflux disease without esophagitis; M79.7 Fibromyalgia; I51.81 Takotsubo syndrome; I25.2 Old myocardial infarction; G25.81 Restless legs syndrome; M06.9 Rheumatoid arthritis, unspecified; M20.41 Other hammer toe(s) (acquired), right foot; M20.42 Other hammer toe(s) (acquired), left foot; G47.33 Obstructive sleep apnea (adult) (pediatric); G40.909 Epilepsy, unspecified, not intractable, without status epilepticus; Z86.19 Personal history of other infectious and parasitic diseases; Z86.73 Personal history of transient ischemic attack (TIA), and cerebral infarction without residual deficits; Z87.19 Personal history of other diseases of the digestive system; Z87.440 Personal history of urinary (tract) infections; Z79.4 Long term (current) use of insulin; Z79.82 Long term (current) use of aspirin; Z79.899 Other long term (current) drug therapy
CPT/HCPCS: 96372; 99282

== ENCOUNTER 2020-12-22 22:51 | Inpatient (IN) | payer MEDICARE, MEDICAID, SELFPAY ==
[2020-12-21 14:59] VITALS: BMI 51.3
--- NOTE | 2020-12-22 00:25 | RAD_ITS ---
STUDY: X-RAY CHEST REASON FOR EXAM: Female, 65 years old. Confusion, agitation, hyperglycemia. TECHNIQUE: Single AP portable view of the chest. COMPARISON: December 15, 2020 chest x-ray December 15, 2020 FINDINGS: Interstitial markings are minimally prominent slightly greater than prior study allowing for the underexpansion of the lungs. There is no demonstrated pleural abnormality. There is borderline cardiomegaly. Normal mediastinum and judith. Normal visualized pulmonary arteries. There is atherosclerotic calcification of the aortic arch with tortuosity. Normal visualized thoracic spine. Normal visualized ribs, clavicles, and shoulders. There is no demonstrated abnormality of the visualized soft tissue structures of the upper abdomen. RAD/Chest 1 View (Portable) IMPRESSION: Mild interstitial prominence cannot entirely exclude atypical infiltrates possible mild edema. Electronically Signed: Alexandra Gunter MD at 1:00 EDT Tel , Service support ,
[2020-12-22 22:53] VITALS: BP 169/117; PULSE 98; RESP 16; TEMP 36.4; O2SAT 94; BMI 51.6
--- NOTE | 2020-12-22 23:11 | EKG12_ITS ---
Test Reason : CP Blood Pressure : / mmHG Vent. Rate : 095 BPM Atrial Rate : 095 BPM P-R Int : 140 ms QRS Dur : 086 ms QT Int : 392 ms P-R-T Axes : 025 -54 020 degrees QTc Int : 492 ms Normal sinus rhythm Left axis deviation Nonspecific ST abnormality Prolonged QT Abnormal ECG Confirmed by ABIMAEL CURRY, CAROLE ([id number]), marketing editor VIDAL MCDERMOTT ([id number]) on 12/26/2020 12:46:05 PM Referred By: GEORGE Confirmed By:CAROLE VARGHESE MD
--- NOTE | 2020-12-22 23:11 | CT_ITS ---
STUDY: CT BRAIN WITHOUT CONTRAST REASON FOR EXAM: Female, 65 years old. Confusion, agitation RADIATION DOSAGE (If Supplied By Facility): CTDIvol = ( 44.99 ) mGy, DLP = ( 914.22 ) mGycm TECHNIQUE: Transaxial CT imaging of the brain was performed without administration of intravenous contrast material. There is quite a bit of artifact throughout this study. The cardiac cath tech view demonstrates shelter monitor leads and wires overlying the patient''s neck soft tissues. This does cause artifact. Also motion artifact in this study. Individualized dose optimization techniques were used for this CT. COMPARISON: CT head March 20, 2019 FINDINGS: Normal soft tissue structures. Normal calvarium. Normal size ventricles and extra-axial spaces for the patient''s age. Normal white matter tracts of the cerebral hemispheres. Normal basal ganglia and thalami. Normal brainstem. Normal cerebellum. There is no intracranial hemorrhage. There are no findings of an acute ischemic infarction. Normal visualized paranasal sinuses. CT/Brain/Head without Contrast IMPRESSION: Images study with artifact. No visualized acute hemorrhage infarct or edema. Consider follow-up study when the patient is better able to tolerate the procedure. Electronically Signed: Alexandra Gunter MD at 0:51 EDT Tel , Service support ,
--- NOTE | 2020-12-22 23:13 | EX.ED.DYSGE1 ---
HPI History of Present Illness Chief Complaint: Hyperglycemia Informant: family Onset/Context/Timing Onset: Today Context: Sudden Onset Timing: Continuous Narrative Narrative: This patient is a 65-year-old female who presents with confusion and agitation. Family checked on her today and she was confused pacing around changing from chair to chair. She had been noted incontinent of stool. Family initially stated that she appears to have just had diarrhea starting today but later stated it may have started on Saturday, 2 days ago. She was recently seen for hip and knee pain but otherwise no recent medical illness such as fevers vomiting chest pain difficulty breathing. All history is obtained from the visitor as patient is confused. [facility] Medical History (Updated 12/23/20 @ 02:[address] Carlo Moffett MD) Abdominal pain Benign essential HTN Candidiasis of breast Chronic pain syndrome Depression Diabetic gastroparesis Diabetic gastroparesis Diabetic infection of right foot Diverticulitis Fibromyalgia Fibromyalgia GERD (gastroesophageal reflux disease) Hammer toe of left foot Hammer toe of right foot History of CVA (cerebrovascular accident) HLD (hyperlipidemia) Iron deficiency anemia Morbid obesity with BMI of 40.0-44.9, adult NSTEMI (non-ST elevated myocardial infarction) QIAN (obstructive sleep apnea) Paroxysmal atrial fibrillation Restless leg syndrome Rheumatoid arthritis Seizure disorder Sepsis Takotsubo cardiomyopathy Takotsubo cardiomyopathy Thyroid disease Toe osteomyelitis, right Type 2 diabetes mellitus 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 2 diabetes mellitus with diabetic polyneuropathy Ulcer of right foot Ulcer of right foot with fat layer exposed UTI (urinary tract infection) Home Medications levothyroxine 75 mcg PO DAILY 09/17/18 [History Last Taken 06/20/19 10:00] hydroxychloroquine 200 mg PO BIDCM 11/30/18 [History Last Taken 06/20/19 10:00] allopurinol 100 mg tablet 100 mg PO QHS tab 03/30/19 [History Last Taken 06/19/19 23:00] aspirin 81 mg PO DAILY 08/16/19 [History Last Taken Unknown] ropinirole 1 mg PO QHS 08/16/19 [History Last Taken Unknown] hydrocodone 5 mg-acetaminophen 325 mg tablet 2 tab PO Q6H PRN 12/03/19 [History Last Taken Unknown] furosemide 40 mg tablet 40 mg PO DAILY PRN PRN tab 03/09/20 [History Last Taken 10/28/20 0800] pregabalin 225 mg capsule 225 mg PO BID cap 04/14/20 [History Last Taken Unknown] cholecalciferol (vitamin D3) 25 mcg (1,000 unit) capsule 25 mcg PO DAILY 08/03/20 [History Last Taken Unknown] haloperidol 1 mg PO TID PRN PRN 08/29/20 [History Last Taken Unknown] ondansetron HCl 8 mg PO Q6H PRN PRN 08/29/20 [History Last Taken Unknown] simvastatin 40 mg PO QHS 08/29/20 [History Last Taken Unknown] albuterol sulfate 2.5 mg INHALATION DAILY 09/30/20 [History Last Taken Unknown] metformin 500 mg PO DAILY 10/27/20 [History Last Taken Unknown] promethazine 25 mg PO TID PRN 10/27/20 [History Last Taken Unknown] insulin NPH isoph U-100 human 100 unit/mL (3 mL) subcutaneous pen 75 unit SC BID ml 11/30/20 [History Last Taken Unknown] budesonide 0.5 mg INHALATION BID 12/23/20 [History Last Taken Unknown] carvedilol 12.5 mg PO BID 12/23/20 [History Last Taken Unknown] duloxetine 30 mg PO BID 12/23/20 [History Last Taken Unknown] oxybutynin chloride 5 mg PO DAILY 12/23/20 [History Last Taken Unknown] Allergy/AdvReac Type Severity Reaction Status Date / Time ciprofloxacin [From Cipro] Allergy short of Verified 12/22/20 22:57 breath cyclobenzaprine Allergy rash Verified 12/22/20 22:57 levofloxacin [From Levaquin] Allergy PT UNSURE Verified 12/22/20 22:57 OF REACTION sulfamethoxazole Allergy itch Verified 12/22/20 22:57 topiramate Allergy PT UNSURE Verified 12/22/20 22:57 OF REACTION trimethoprim Allergy itch Verified 12/22/20 22:57 valacyclovir [From Valtrex] Allergy other Verified 12/22/20 22:57 ketorolac [From Toradol] AdvReac Other Verified 12/22/20 22:57 Family History Mother Myocardial infarction Asthma Diabetes Father Congestive heart failure Other Heart disease Surgical History history left foot surgery History of cholecystectomy History of knee surgery History of left heart catheterization (03/09/19) Social History Smoking Status: Heavy Smoker (>10/day) alcohol intake: never substance use type: does not use ROS ROS ED Review of Systems ROS Unobtainable: due to mental status EXAM Physical Exam Const Vital Signs: 12/22/20 22:53 12/23/20 00:06 12/23/20 01:41 Temperature 97.6 F L 100 F H Temperature Source Temporal Core Pulse Rate 98 107 H Respiratory Rate 16 22 H Respiratory Effort Normal Respiratory Pattern Normal Blood Pressure 169/117 H Blood Pressure Mean 134 Pulse Ox 94 97 Oxygen Delivery Method Room Air Room Air 12/23/20 01:46 12/23/20 02:28 12/23/20 02:42 Temperature 100.1 F H 100.1 F H Temperature Source Core Core Pulse Rate 107 H 105 H Respiratory Rate 16 16 Respiratory Effort Respiratory Pattern Blood Pressure 208/108 H 182/72 H 179/83 H Blood Pressure Mean 141 108 115 Pulse Ox 97 95 Oxygen Delivery Method Room Air Room Air Positive obese Nutritional Appearance: obese HEENT Negative for trauma Eyes EOMs intact bilaterally Neck supple Chest Wall inspection of chest normal Resp Resp Narrative: Tachypneic but lungs are clear I do not appreciate rales or wheezing Cardio regular rate, regular rhythm and no murmurs GI non-tender and non-distended Palpation: soft Back/Spine no CVA tenderness Extremity General Extremety ED: Negative for tenderness Neuro Neuro Narrative: Patient is alert but just murmuring repetitive statements. She will follow commands. She will not however answer questions. She does not appear to focal or lateralizing deficits she is moving all 4 extremities she does appear to make mildly agitated Sensorium / Orientation: alert Psych Attitude: agitated Skin no rashes or lesions noted MDM MDM MDM Narrative Medical decision making narrative: EKG shows normal sinus rhythm at a rate of 95 with no acute ischemic changes. His blood gas shows pH 7.44, PCO2 27, PO2 74. Laboratory studies are notable for significant leukocytosis with white blood cell count of 24.7, chemistries notable for creatinine of 1.33, glucose 479, total bilirubin 2.00. Troponin 0 0.018, BNP 160, alcohol 5, UA shows 10-25 RBCs no WBCs leukocyte esterase or nitrites, drug screen positive for opiates only, chest x-ray showed mild interstitial prominence and cannot rule out atypical infiltrates or possibly mild edema, CT head was limited due to artifact but showed no obvious hemorrhage or infarct. Patient was treated with IV Rocephin and azithromycin during her course for possible community-acquired pneumonia. Covid ordered and pending at the time of this dictation. Patient was given IV fluids and insulin for her hyperglycemia. After discussion with the hospitalist we have also ordered a CT of the abdomen and pelvis. Patient will be admitted to the ICU. Lab Data Labs: Laboratory Results - last 24 hr 12/22/20 12/22/20 12/22/20 23:13 23:56 23:56 WBC 24.7 H RBC 5.77 H Hgb 15.7 H Hct 47.5 H MCV 82.3 MCH 27.2 MCHC 33.1 RDW Std Deviation 39.6 RDW Coeff of Be 13.7 Plt Count 327 MPV 9.9 Immature Gran % (Auto) 0.600 Neut % (Auto) 86.7 H Lymph % (Auto) 5.2 L [place] % (Auto) 7.1 Eos % (Auto) 0.0 Baso % (Auto) 0.4 Absolute Neuts (auto) 21.4 H Absolute Lymphs (auto) 1.29 Nucleated RBC % 0 Diff Path Review May foll Sodium 132 L Potassium 3.6 Chloride 93 L Carbon Dioxide 22.0 Anion Gap 17 H BUN 19 H Creatinine 1.33 H Estim Creat Clear Calc 38.95 Est GFR (MDRD) Af Amer 51 L Est GFR (MDRD) Non-Af 42 L BUN/Creatinine Ratio 14.3 Glucose 479 H* Lactic Acid Calcium 9.4 Total Bilirubin 2.00 H AST 15 ALT 20 Alkaline Phosphatase 162 H Troponin I B-Natriuretic Peptide Total Protein 8.5 H Albumin 3.8 Globulin 4.7 H Albumin/Globulin Ratio 0.8 L Urine Color Urine Clarity Urine pH Ur Specific [place] Urine Protein Urine Glucose (UA) Urine Ketones Urine Occult Blood Urine Nitrite Urine Bilirubin Urine Urobilinogen Ur Leukocyte Esterase Urine RBC Urine WBC Ur Squamous Epith Cells Amorphous Sediment Urine Bacteria Urine Mucus Urine Opiates Screen Urine Methadone Screen Ur Barbiturates Screen Ur Phencyclidine Scrn Ur Amphetamines Screen U Methamphetamin-MDMA U Benzodiazepines Scrn Urine Cocaine Screen U Cannabinoids Screen Ur Drug Screen Comment Ethyl Alcohol POC Glucose > 500 H* 12/22/20 12/22/20 12/22/20 23:56 23:56 23:56 WBC RBC Hgb Hct MCV MCH MCHC RDW Std Deviation RDW Coeff of Be Plt Count MPV Immature Gran % (Auto) Neut % (Auto) Lymph % (Auto) [place] % (Auto) Eos % (Auto) Baso % (Auto) Absolute Neuts (auto) Absolute Lymphs (auto) Nucleated RBC % Diff Path Review Sodium Potassium Chloride Carbon Dioxide Anion Gap BUN Creatinine Estim Creat Clear Calc Est GFR (MDRD) Af Amer Est GFR (MDRD) Non-Af BUN/Creatinine Ratio Glucose Lactic Acid Calcium Total Bilirubin AST ALT Alkaline Phosphatase Troponin I 0.018 B-Natriuretic Peptide 160.9 H Total Protein Albumin Globulin Albumin/Globulin Ratio Urine Color Urine Clarity Urine pH Ur Specific [place] Urine Protein Urine Glucose (UA) Urine Ketones Urine Occult Blood Urine Nitrite Urine Bilirubin Urine Urobilinogen Ur Leukocyte Esterase Urine RBC Urine WBC Ur Squamous Epith Cells Amorphous Sediment Urine Bacteria Urine Mucus Urine Opiates Screen Urine Methadone Screen Ur Barbiturates Screen Ur Phencyclidine Scrn Ur Amphetamines Screen U Methamphetamin-MDMA U Benzodiazepines Scrn Urine Cocaine Screen U Cannabinoids Screen Ur Drug Screen Comment Ethyl Alcohol 5.0 POC Glucose 12/23/20 12/23/20 12/23/20 01:20 01:30 01:30 WBC RBC Hgb Hct MCV MCH MCHC RDW Std Deviation RDW Coeff of Be Plt Count MPV Immature Gran % (Auto) Neut % (Auto) Lymph % (Auto) [place] % (Auto) Eos % (Auto) Baso % (Auto) Absolute Neuts (auto) Absolute Lymphs (auto) Nucleated RBC % Diff Path Review Sodium Potassium Chloride Carbon Dioxide Anion Gap BUN Creatinine Estim Creat Clear Calc Est GFR (MDRD) Af Amer Est GFR (MDRD) Non-Af BUN/Creatinine Ratio Glucose Lactic Acid 2.7 H* Calcium Total Bilirubin AST ALT Alkaline Phosphatase Troponin I B-Natriuretic Peptide Total Protein Albumin Globulin Albumin/Globulin Ratio Urine Color Yellow Urine Clarity Clear Urine pH 6.0 Ur Specific [place] 1.020 Urine Protein 100 H Urine Glucose (UA) 1000 H Urine Ketones 150 A* Urine Occult Blood 150 H Urine Nitrite Negative Urine Bilirubin Negative Urine Urobilinogen Normal Ur Leukocyte Esterase Negative Urine RBC 10-25 SEEN Urine WBC 0 SEEN Ur Squamous Epith Cells 0 SEEN Amorphous Sediment 1+ Urine Bacteria 0 SEEN Urine Mucus 0 SEEN Urine Opiates Screen POSITIVE H Urine Methadone Screen NEGATIVE Ur Barbiturates Screen NEGATIVE Ur Phencyclidine Scrn NEGATIVE Ur Amphetamines Screen NEGATIVE U Methamphetamin-MDMA NEGATIVE U Benzodiazepines Scrn NEGATIVE Urine Cocaine Screen NEGATIVE U Cannabinoids Screen NEGATIVE Ur Drug Screen Comment Ethyl Alcohol POC Glucose ABG Data ABG results: ABG 12/23/20 00:09 Specimen Type ART Sample Site L Radial pH 7.45 Bicarbonate Actual 19.0 L Total CO2 20 Base Excess -5 L O2 Saturation 96 ABG pCO2 27.7 L ABG pO2 75 Reuben Test Positive O2 Delivery Device Room Air Radiography Diagnostic Testing: Radiology Impression Chest X-Ray 12/22/20 00:25 IMPRESSION: Mild interstitial prominence cannot entirely exclude atypical infiltrates possible mild edema. Electronically Signed: Alexandra Gunter MD at 1:00 EDT Tel , Service support , Brain CT 12/22/20 23:11 IMPRESSION: Images study with artifact. No visualized acute hemorrhage infarct or edema. Consider follow-up study when the patient is better able to tolerate the procedure. Electronically Signed: Alexandra Gunter MD at 0:51 EDT Tel , Service support , Discharge Plan Triage Chief Complaint: Hyperglycemia ED Provider: Carlo Moffett Dx/Rx/DC Orders Clinical Impression: Leukocytosis, Delirium Prescriptions: No Action hydrocodone-acetaminophen [Mcgregor] 5-325 mg tablet 2 tab PO Q6H PRN (Reason: Pain Or Fever) RF: 0 Humulin N NPH Insulin KwikPen 100 unit/mL (3 mL) insulin pen 75 unit SC BID RF: 0 levothyroxine 75 MCG tablet 75 mcg PO DAILY RF: 0 allopurinol 100 mg tablet 100 mg PO QHS RF: 0 hydroxychloroquine 200 MG tablet 200 mg PO BIDCM RF: 0 ropinirole 1 MG tablet 1 mg PO QHS RF: 0 aspirin 81 MG tablet,chewable 81 mg PO DAILY RF: 0 furosemide 40 mg tablet 40 mg PO DAILY PRN PRN (Reason: diuretic) RF: 0 pregabalin 225 mg capsule 225 mg PO BID RF: 0 haloperidol 0.5 MG tablet 1 mg PO TID PRN PRN (Reason: Nausea) RF: 0 ondansetron HCl 8 MG tablet 8 mg PO Q6H PRN PRN (Reason: Nausea) RF: 0 simvastatin 40 MG tablet 40 mg PO QHS RF: 0 albuterol sulfate 2.5 MG/3 ML solution for nebulization 2.5 mg INHALATION DAILY RF: 0 metformin 500 MG tablet 500 mg PO DAILY RF: 0 promethazine 25 MG tablet 25 mg PO TID PRN (Reason: Nausea) RF: 0 budesonide 0.5 mg/2 mL suspension for nebulization 0.5 mg inhalation BID RF: 0 oxybutynin chloride 5 mg Tablet 5 mg PO DAILY RF: 0 duloxetine 30 mg Capsule,Delayed Release(Dr/Ec) 30 mg PO BID RF: 0 carvedilol 12.5 mg tablet 12.5 mg PO BID RF: 0 cholecalciferol (vitamin D3) 25 mcg (1,000 unit) capsule 25 mcg PO DAILY RF: 0 Primary Care Provider: Devan Parks Referrals: Devan Parks MD [Primary Care Provider] - Disposition Disposition: Acute Care Hospital [facility]
[2020-12-22 23:21] LABS: Bedside Glucose > 500 mg/dL (70-110)
[2020-12-23] VITALS (35 sets, daily range): BP systolic 100–217; BP diastolic 42–171; PULSE 78–115; RESP 16–28; TEMP 36–37.8; O2SAT 91–100; BMI 48.2
[2020-12-23 00:02] LABS: Absolute Lymphocyte Count 1.29 X10^3/uL (0.83-4.51); Absolute Neutrophil Count 21.4 X10^3/uL (2.0-7.7); Basophil% 0.4 % (0-1); Eosinophil# 0.01 X10^3/uL; Hematocrit 47.5 % (37-47); Hemoglobin 15.7 g/dL (12.0-15.0); Lymphocyte # 1.29 X10^3/ul (0.83-4.51); Lymphocyte % 5.2 % (19-41); Mean Corp Hgb Conc 33.1 g/dL (32-36); Mean Corpuscular Hgb 27.2 pg (27.0-32.0); Mean Corpuscular Volume 82.3 fL (81-99); Mean Platelet Vol. 9.9 fl (6.2-12.0); Monocyte# 1.76 X10^3/uL; Monocyte% 7.1 % (0-10); NRBC Flagged by Analyzer 0 % (0-5); Neutrophil # 21.35 X10^3/uL (2.7-7.7); Neutrophil % 86.7 % (47-70); POSITIVE DIFFERENTIAL YES; Platelet Count 327 K/mm3 (150-450); RBC Distribution Width CV 13.7 % (11.6-14.6); RBC Distribution Width SD 39.6 fl (35.1-43.9); Red Blood Count 5.77 M/mm3 (4.2-5.4); White Blood Count 24.7 K/mm3 (4.4-11.0)
[2020-12-23 00:05] LABS: Differential Indicated SCAN CRITERIA MET
[2020-12-23 00:16] LABS: Allen Test Positive; Base Excess -5 mmol/L (-2 to +2); Blood Gas Specimen Type ART; O2 Delivery Device Room Air; PO2 75 mmHG (75-100); SITE L Radial; SO2 96 % (95-99); Total Carbon Dioxide 20 mmol/L; pCO2 27.7 mmHg (35-45); pH 7.45 (7.35-7.45)
[2020-12-23 00:33] LABS: ALB/GLOB Ratio 0.8 RATIO (0.9-2.4); AST(SGOT) 15 U/L (15-37); Alanine Aminotransfer ALT/SGPT 20 U/L (13-56); Albumin, Serum 3.8 g/dL (3.2-5.0); Alkaline Phosphatase 162 U/L (45-117); Anion Gap 17 (5-15); BUN 19 mg/dL (7-18); BUN/Creat Ratio 14.3 RATIO (10-20); Calcium,Total 9.4 mg/dL (8.5-10.1); Chloride 93 mmol/L (98-107); Creatinine, Serum 1.33 mg/dL (0.55-1.02); EST Glomerular Filtration Rate 42 mL/min (>60); Est Glom Filt Rate - Afr Amer 51 mL/min (>60); Estimated Creatinine Clearance 38.95 ml/min; Globulin 4.7 g/dL (2.2-4.2); Glucose 479 mg/dL (74-106); Potassium 3.6 mmol/L (3.5-5.1); Protein, Total 8.5 g/dL (6.4-8.2); Sodium Level 132 mmol/L (136-145)
[2020-12-23 01:28] LABS: BNP,B-Type NATRIURETIC PEPTIDE 160.9 pg/mL (0-100)
[2020-12-23 01:35] LABS: Bacteria 0 SEEN /hpf (None Seen); Mucous, Urine 0 SEEN /hpf (<or=2+); Squamous Epithelial Cells - UA 0 SEEN /hpf (5-10); White Blood Cells 0 SEEN /hpf (0-5)
[2020-12-23 01:37] LABS: Color, Urine Yellow (Yellow); Glucose, Dipstick 1000 mg/dl (Normal); Leukocyte Esterase-Dipstick Negative /ul (Negative); Nitrite-Dipstick Negative (Negative); Occult Blood-Urine 150 /ul (Negative); Protein-Dipstick 100 mg/dl (Negative); Urine Bilirubin Dipstick Negative (Negative); Urine Clarity Clear (Clear); Urine Urobilinogen Normal (Normal)
[2020-12-23 01:40] LABS: Ketone-Dipstick 150 mg/dl (Negative)
[2020-12-23 01:42] LABS: Amorphous Sediment 1+; Red Blood Cells-Urine 10-25 SEEN /hpf (0-5)
[2020-12-23 01:48] LABS: Amphetamine Urine VISTA NEGATIVE (<1000 ng/mL); Barbiturate Urine VISTA NEGATIVE (< 200 ng/mL); Benzodiazepine Urine VISTA NEGATIVE (< 200 ng/mL); Cocaine Urine VISTA NEGATIVE (< 300 ng/mL); Ecstacy Urine VISTA NEGATIVE (< 500 ng/mL); Methadone Urine VISTA NEGATIVE (< 300 ng/mL); PCP Urine VISTA NEGATIVE (< 25 ng/mL); THC Urine VISTA NEGATIVE (< 50 ng/mL); Vista UDS pH Range 6
[2020-12-23] MEDS: LORazepam 2 MG/ML Syringe 1 MG IV (01:48)
[2020-12-23 01:50] LABS: Lactic Acid 2.7 mmol/L (0.4-1.9)
[2020-12-23] MEDS: Ceftriaxone 1 GM/50 ML BAG IV (01:51)
[2020-12-23] MEDS: Insulin Lispro 100 UNIT/ML INSULN.PEN 15 UNIT SC (02:39)
--- NOTE | 2020-12-23 02:45 | CT_ITS ---
STUDY: CT ABDOMEN AND PELVIS WITH CONTRAST REASON FOR EXAM: Female, 65 years old. Leukocytosis, delirium RADIATION DOSAGE (If Supplied By Facility): CTDIvol = ( 15.415 ) mGy, DLP = ( 1450.15 ) mGycm TECHNIQUE: Transaxial images were obtained from the dome of the diaphragm to the symphysis pubis without oral contrast. IV 100mL [id number]-[id number] was administered. Sagittal and coronal images were reconstructed. Individualized dose optimization techniques were used for this CT. , March 09, 2018 COMPARISON: January 22, [address] CT abdomen [address] pelvis CT abdomen and pelvis FINDINGS: The visualized lung bases are unremarkable. The visualized portions of the heart are within normal limits. Normal liver. There are surgical clips in the gallbladder fossa consistent with a prior cholecystectomy. Normal spleen. There is diffuse atrophy of the pancreas. Normal bilateral adrenal glands. There is mild right renal atrophy. There is right renal cortical thinning. There is mild right renal pelviectasis without visualized stones. There is mild left renal atrophy left renal cortical thinning and no hydronephrosis. There is a minimal small hiatal hernia. Within the low abdomen there is a suggestion that there is a abnormal loop of distal small bowel with wall thickening and possible intraluminal lipoma allowing for the tortuosity of the large bowel. There is minimal stool in the colon. . There is non-visualization of the appendix. Normal abdominal aorta. Normal inferior vena cava. There few nonspecific borderline reactive retraction of lymph nodes. A Robb catheter in the bladder. The bladder is decompressed around the Robb. There is atrophy of the uterus. Normal abdominal wall. Is a stable bony hemangioma at L1. There is persistent slight anterolisthesis L4-L5. There is a broad disc protrusion moderate neural foraminal narrowing moderate to severe central stenosis facet arthropathy. At L3-L4 there is a broad disc osteophyte moderate neural foraminal narrowing moderate central stenosis. CT/Abdomen/Pelvis W IV Cont ONLY IMPRESSION: There is a loop of thick-walled appearing small bowel which contains a small fatty mass suspicious for probable lipoma. Suspicious for enteritis. This is similar to the prior study March 09, 2018 and is associated with mild tortuosity. There is an air-fluid level within the cecum which is nonspecific. The patient may have diarrhea. There is diverticulosis without visualized diverticulitis. This appears to be recurrent since prior study 2017. Recommend consideration for upper GI small bowel follow-through. And/or CT with oral contrast. Bilateral renal atrophy no evidence of hydronephrosis. Degenerative changes of the thoracolumbar spine stable L1 hemangioma. Electronically Signed: Alexandra Gunter MD at 3:49 EDT Tel , Service support ,
--- NOTE | 2020-12-23 03:39 | PCM.HP.STD ---
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 fib; seizure disorder; Takotsubo cardiomyopathy who presents to the emergency department with confusion. History was taken from emergency department doctor as patient was unable to provide history. Reportedly someone went to patient's home and realized the patient was confused. Reportedly patient was restless and moving around from chair to chair. She had diarrhea with incontinence and is in stool all over. [facility] Medical History (Updated 12/23/20 @ 04:[address] Jacques Santos MD) Abdominal pain Benign essential HTN Candidiasis of breast Chronic pain syndrome Depression Diabetic gastroparesis Diabetic gastroparesis Diabetic infection of right foot Diverticulitis Fibromyalgia Fibromyalgia GERD (gastroesophageal reflux disease) Hammer toe of left foot Hammer toe of right foot History of CVA (cerebrovascular accident) HLD (hyperlipidemia) Iron deficiency anemia Morbid obesity with BMI of 40.0-44.9, adult NSTEMI (non-ST elevated myocardial infarction) QIAN (obstructive sleep apnea) Paroxysmal atrial fibrillation Restless leg syndrome Rheumatoid arthritis Seizure disorder Sepsis Takotsubo cardiomyopathy Takotsubo cardiomyopathy Thyroid disease Toe osteomyelitis, right Type 2 diabetes mellitus 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 2 diabetes mellitus with diabetic polyneuropathy Ulcer of right foot Ulcer of right foot with fat layer exposed UTI (urinary tract infection) Home Medications levothyroxine 75 mcg PO DAILY 09/17/18 [History Last Taken 06/20/19 10:00] hydroxychloroquine 200 mg PO BIDCM 11/30/18 [History Last Taken 06/20/19 10:00] allopurinol 100 mg tablet 100 mg PO QHS tab 03/30/19 [History Last Taken 06/19/19 23:00] aspirin 81 mg PO DAILY 08/16/19 [History Last Taken Unknown] ropinirole 1 mg PO QHS 08/16/19 [History Last Taken Unknown] hydrocodone 5 mg-acetaminophen 325 mg tablet 2 tab PO Q6H PRN 12/03/19 [History Last Taken Unknown] furosemide 40 mg tablet 40 mg PO DAILY PRN PRN tab 03/09/20 [History Last Taken 10/28/20 0800] pregabalin 225 mg capsule 225 mg PO BID cap 04/14/20 [History Last Taken Unknown] cholecalciferol (vitamin D3) 25 mcg (1,000 unit) capsule 25 mcg PO DAILY 08/03/20 [History Last Taken Unknown] haloperidol 1 mg PO TID PRN PRN 08/29/20 [History Last Taken Unknown] ondansetron HCl 8 mg PO Q6H PRN PRN 08/29/20 [History Last Taken Unknown] simvastatin 40 mg PO QHS 08/29/20 [History Last Taken Unknown] albuterol sulfate 2.5 mg INHALATION DAILY 09/30/20 [History Last Taken Unknown] metformin 500 mg PO DAILY 10/27/20 [History Last Taken Unknown] promethazine 25 mg PO TID PRN 10/27/20 [History Last Taken Unknown] insulin NPH isoph U-100 human 100 unit/mL (3 mL) subcutaneous pen 75 unit SC BID ml 11/30/20 [History Last Taken Unknown] budesonide 0.5 mg INHALATION BID 12/23/20 [History Last Taken Unknown] carvedilol 12.5 mg PO BID 12/23/20 [History Last Taken Unknown] duloxetine 30 mg PO BID 12/23/20 [History Last Taken Unknown] oxybutynin chloride 5 mg PO DAILY 12/23/20 [History Last Taken Unknown] Allergy/AdvReac Type Severity Reaction Status Date / Time ciprofloxacin [From Cipro] Allergy short of Verified 12/22/20 22:57 breath cyclobenzaprine Allergy rash Verified 12/22/20 22:57 levofloxacin [From Levaquin] Allergy PT UNSURE Verified 12/22/20 22:57 OF REACTION sulfamethoxazole Allergy itch Verified 12/22/20 22:57 topiramate Allergy PT UNSURE Verified 12/22/20 22:57 OF REACTION trimethoprim Allergy itch Verified 12/22/20 22:57 valacyclovir [From Valtrex] Allergy other Verified 12/22/20 22:57 ketorolac [From Toradol] AdvReac Other Verified 12/22/20 22:57 Family History Mother Myocardial infarction Asthma Diabetes Father Congestive heart failure Other Heart disease Surgical History history left foot surgery History of cholecystectomy History of knee surgery History of left heart catheterization (03/09/19) Social History Smoking Status: Heavy Smoker (>10/day) alcohol intake: never substance use type: does not use ROS Review of Systems ROS Unobtainable: due to encephalopathy and other Details: History was taken from emergency department doctor who took history from family. Vital Signs Vital Signs Vital Signs: 12/22/20 22:53 12/23/20 00:06 12/23/20 01:41 Temperature 97.6 F L 100 F H Temperature Source Temporal Core Pulse Rate 98 107 H Respiratory Rate 16 22 H Respiratory Effort Normal Respiratory Pattern Normal Blood Pressure 169/117 H Blood Pressure Mean 134 Pulse Ox 94 97 Oxygen Delivery Method Room Air Room Air 12/23/20 01:46 12/23/20 02:28 12/23/20 02:42 Temperature 100.1 F H 100.1 F H Temperature Source Core Core Pulse Rate 107 H 105 H Respiratory Rate 16 16 Respiratory Effort Respiratory Pattern Blood Pressure 208/108 H 182/72 H 179/83 H Blood Pressure Mean 141 108 115 Pulse Ox 97 95 Oxygen Delivery Method Room Air Room Air 12/23/20 03:24 Temperature 100.0 F H Temperature Source Core Pulse Rate 114 H Respiratory Rate 20 H Respiratory Effort Respiratory Pattern Blood Pressure 179/71 H Blood Pressure Mean 107 Pulse Ox 97 Oxygen Delivery Method Room Air Physical Exam Narrative Lethargic and confused Nontraumatic; normocephalic. Dry lips and dry mucosa. Tachycardia lung clear to auscultate Heart sounds S1-S2. No murmur, gallop or rubs. Abdomen bowel sounds present soft, nontender nondistended Extremity without edema cyanosis or clubbing. Lab / Micro Data Result Diagrams: 12/22/20 23:56 12/22/20 23:56 Labs: Laboratory Results - last 24 hr 12/22/20 12/22/20 12/22/20 23:13 23:56 23:56 WBC 24.7 H RBC 5.77 H Hgb 15.7 H Hct 47.5 H MCV 82.3 MCH 27.2 MCHC 33.1 RDW Std Deviation 39.6 RDW Coeff of Be 13.7 Plt Count 327 MPV 9.9 Immature Gran % (Auto) 0.600 Neut % (Auto) 86.7 H Lymph % (Auto) 5.2 L [place] % (Auto) 7.1 Eos % (Auto) 0.0 Baso % (Auto) 0.4 Absolute Neuts (auto) 21.4 H Absolute Lymphs (auto) 1.29 Nucleated RBC % 0 Diff Path Review May foll Sodium 132 L Potassium 3.6 Chloride 93 L Carbon Dioxide 22.0 Anion Gap 17 H BUN 19 H Creatinine 1.33 H Estim Creat Clear Calc 38.95 Est GFR (MDRD) Af Amer 51 L Est GFR (MDRD) Non-Af 42 L BUN/Creatinine Ratio 14.3 Glucose 479 H* Lactic Acid Calcium 9.4 Total Bilirubin 2.00 H AST 15 ALT 20 Alkaline Phosphatase 162 H Troponin I B-Natriuretic Peptide Total Protein 8.5 H Albumin 3.8 Globulin 4.7 H Albumin/Globulin Ratio 0.8 L Urine Color Urine Clarity Urine pH Ur Specific [place] Urine Protein Urine Glucose (UA) Urine Ketones Urine Occult Blood Urine Nitrite Urine Bilirubin Urine Urobilinogen Ur Leukocyte Esterase Urine RBC Urine WBC Ur Squamous Epith Cells Amorphous Sediment Urine Bacteria Urine Mucus Urine Opiates Screen Urine Methadone Screen Ur Barbiturates Screen Ur Phencyclidine Scrn Ur Amphetamines Screen U Methamphetamin-MDMA U Benzodiazepines Scrn Urine Cocaine Screen U Cannabinoids Screen Ur Drug Screen Comment Ethyl Alcohol POC Glucose > 500 H* 12/22/20 12/22/20 12/22/20 23:56 23:56 23:56 WBC RBC Hgb Hct MCV MCH MCHC RDW Std Deviation RDW Coeff of Be Plt Count MPV Immature Gran % (Auto) Neut % (Auto) Lymph % (Auto) [place] % (Auto) Eos % (Auto) Baso % (Auto) Absolute Neuts (auto) Absolute Lymphs (auto) Nucleated RBC % Diff Path Review Sodium Potassium Chloride Carbon Dioxide Anion Gap BUN Creatinine Estim Creat Clear Calc Est GFR (MDRD) Af Amer Est GFR (MDRD) Non-Af BUN/Creatinine Ratio Glucose Lactic Acid Calcium Total Bilirubin AST ALT Alkaline Phosphatase Troponin I 0.018 B-Natriuretic Peptide 160.9 H Total Protein Albumin Globulin Albumin/Globulin Ratio Urine Color Urine Clarity Urine pH Ur Specific [place] Urine Protein Urine Glucose (UA) Urine Ketones Urine Occult Blood Urine Nitrite Urine Bilirubin Urine Urobilinogen Ur Leukocyte Esterase Urine RBC Urine WBC Ur Squamous Epith Cells Amorphous Sediment Urine Bacteria Urine Mucus Urine Opiates Screen Urine Methadone Screen Ur Barbiturates Screen Ur Phencyclidine Scrn Ur Amphetamines Screen U Methamphetamin-MDMA U Benzodiazepines Scrn Urine Cocaine Screen U Cannabinoids Screen Ur Drug Screen Comment Ethyl Alcohol 5.0 POC Glucose 12/23/20 12/23/20 12/23/20 01:20 01:30 01:30 WBC RBC Hgb Hct MCV MCH MCHC RDW Std Deviation RDW Coeff of Be Plt Count MPV Immature Gran % (Auto) Neut % (Auto) Lymph % (Auto) [place] % (Auto) Eos % (Auto) Baso % (Auto) Absolute Neuts (auto) Absolute Lymphs (auto) Nucleated RBC % Diff Path Review Sodium Potassium Chloride Carbon Dioxide Anion Gap BUN Creatinine Estim Creat Clear Calc Est GFR (MDRD) Af Amer Est GFR (MDRD) Non-Af BUN/Creatinine Ratio Glucose Lactic Acid 2.7 H* Calcium Total Bilirubin AST ALT Alkaline Phosphatase Troponin I B-Natriuretic Peptide Total Protein Albumin Globulin Albumin/Globulin Ratio Urine Color Yellow Urine Clarity Clear Urine pH 6.0 Ur Specific [place] 1.020 Urine Protein 100 H Urine Glucose (UA) 1000 H Urine Ketones 150 A* Urine Occult Blood 150 H Urine Nitrite Negative Urine Bilirubin Negative Urine Urobilinogen Normal Ur Leukocyte Esterase Negative Urine RBC 10-25 SEEN Urine WBC 0 SEEN Ur Squamous Epith Cells 0 SEEN Amorphous Sediment 1+ Urine Bacteria 0 SEEN Urine Mucus 0 SEEN Urine Opiates Screen POSITIVE H Urine Methadone Screen NEGATIVE Ur Barbiturates Screen NEGATIVE Ur Phencyclidine Scrn NEGATIVE Ur Amphetamines Screen NEGATIVE U Methamphetamin-MDMA NEGATIVE U Benzodiazepines Scrn NEGATIVE Urine Cocaine Screen NEGATIVE U Cannabinoids Screen NEGATIVE Ur Drug Screen Comment Ethyl Alcohol POC Glucose Micro: Microbiology 12/23/20 01:20 C. difficile DNA Amplification - Final Stool 12/23/20 02:50 SARS-CoV-2 Antigen (Rapid) - Final Nasal Secretion ABG Data ABG results: ABG 12/23/20 00:09 Specimen Type ART Sample Site L Radial pH 7.45 Bicarbonate Actual 19.0 L Total CO2 20 Base Excess -5 L O2 Saturation 96 ABG pCO2 27.7 L ABG pO2 75 Reuben Test Positive O2 Delivery Device Room Air Radiology Impression Chest X-Ray 12/22/20 00:25 IMPRESSION: Mild interstitial prominence cannot entirely exclude atypical infiltrates possible mild edema. Electronically Signed: Alexandra Gunter MD at 1:00 EDT Tel , Service support , Brain CT 12/22/20 23:11 IMPRESSION: Images study with artifact. No visualized acute hemorrhage infarct or edema. Consider follow-up study when the patient is better able to tolerate the procedure. Electronically Signed: Alexandra Gunter MD at 0:51 EDT Tel , Service support , Assessment & Plan Assessment/Plan (1) Severe sepsis: PLAN: SIRS criteria: Leukocytosis with tachycardia. Lactic acid is elevated; trend. Of note patient is on Metformin which can also cause lactic acidosis. Follow blood culture ordered emergency department. Covid test negative. qSOFA: One-point Source: Unclear. Likely GI because of diarrhea. Radiologist impression of chest x-ray: Mild interstitial prominence, entirely exclude atypical infiltrate possible mild edema. Acute chest x-ray image was independently interpreted . I agree with the latest interpretation. Trend CBC and BMP. Received ceftriaxone and Zithromax at the emergency department. We will start patient on vancomycin IV; cefepime IV; metronidazole and vancomycin p.o. CDIFF was ordered [facility] department. Check enteric pathogen panel. Check O&P. Fecal leukocytes ordered. Hold home as needed diuretics since patient appeared dehydrated. Received normal saline bolus at emergency department. Normal saline at maintenance rate continued. Admit to intensive care and consults acid operator. 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 Metformin held Accu-Chek QA [facility] with correction scale insulin ordered. Diabetic diet ordered DVT prophylaxis: Subcutaneous Lovenox ordered. (4) CKD (chronic kidney disease) stage 3, GFR 30-59 ml/min: PLAN: CKD stage IIIa likely secondary to diabetic mellitus. Stable. Trend BMP. Addendum Addendum: Patient remains increasingly agitated while at the intensive care unit. Received Ativan at the emergency department. Will order Haldol IV at this time. We will keep n.p.o. at this time. Hold all home p.o. medications. Visit Charges Inpatient E&M: 79611 Init Hosp L3
[2020-12-23] MEDS: 0.9% Normal Saline 1,000 ML 75 ML IV ×2 (04:40→20:25)
[2020-12-23] MEDS: Haloperidol Lactate 5 MG/ML Vial 2 MG IV ×3 (04:59→21:05)
[2020-12-23] MEDS: 0.9% Saline Lock 10 ML Syringe IV (04:59)
[2020-12-23 05:23] LABS: Reflex Lactate? Y
--- NOTE | 2020-12-23 05:28 | PHA.PHARE_ITS ---
Consult Pharmacy has been consulted to manage selected antiobiotic: Vancomycin Type of Consult: New start Suspected Infection: Sepsis Labs: Sodium 132 mmol/L (136-145) L 12/22/20 23:56 Potassium 3.6 mmol/L (3.5-5.1) 12/22/20 23:56 Chloride 93 mmol/L (98-107) L 12/22/20 23:56 Carbon Dioxide 22.0 mmol/L (21.0-32.0) 12/22/20 23:56 Anion Gap 17 (5-15) H 12/22/20 23:56 BUN 19 mg/dL (7-18) H 12/22/20 23:56 Creatinine 1.33 mg/dL (0.55-1.02) H 12/22/20 23:56 Est GFR (MDRD) Af Amer 51 mL/min (>60) L 12/22/20 23:56 Est GFR (MDRD) Non-Af 42 mL/min (>60) L 12/22/20 23:56 BUN/Creatinine Ratio 14.3 RATIO (10-20) 12/22/20 23:56 Glucose 479 mg/dL (74-106) H* 12/22/20 23:56 Microbiology: Microbiology 12/23/20 01:20 Stool C. difficile DNA Amplification - Final 12/23/20 02:50 Nasal Secretion SARS-CoV-2 Antigen (Rapid) - Final Weight used for dosin kg Estimated Creatinine Clearance: 61.5 Goal Trough: 15-20 mcg/mL Pharmacy Plan for Drug Dosing: Pharmacy Service will continue to monitor and adjust dosing as required. Medications Vancomycin HCl 2,000 mg/ (Sodium Chloride) 540 mls @ 250 mls/hr IV X1 ONE Stop: 12/23/20 06:39 Last Admin: 12/23/20 04:44 Dose: 250 mls/hr Documented by: Vancomycin HCl 1,500 mg/ (Sodium Chloride) 530 mls @ 250 mls/hr IV Q12H [facility] [place] Follow-Up Labs: Trough Vancomycin Labs to be done on [date and time ordered]: 12/24 @ 1630
[2020-12-23] MEDS: Insulin Lispro 100 UNIT/ML INSULN.PEN SC ×4 (05:36→23:23)
[2020-12-23 05:37] LABS: Absolute Lymphocyte Count 1.26 X10^3/uL (0.83-4.51); Absolute Neutrophil Count 16.6 X10^3/uL (2.0-7.7); Basophil# 0.06 X10^3/uL; Basophil% 0.3 % (0-1); Differential Indicated SCAN CRITERIA MET; Eosinophil# 0.01 X10^3/uL; Eosinophils% 0.1 % (0-5); Hematocrit 41.1 % (37-47); Hemoglobin 13.7 g/dL (12.0-15.0); Lymphocyte # 1.26 X10^3/ul (0.83-4.51); Lymphocyte % 6.3 % (19-41); Mean Corp Hgb Conc 33.3 g/dL (32-36); Mean Corpuscular Hgb 27.4 pg (27.0-32.0); Mean Corpuscular Volume 82.2 fL (81-99); Mean Platelet Vol. 10.1 fl (6.2-12.0); Monocyte# 1.97 X10^3/uL; Monocyte% 9.9 % (0-10); NRBC Flagged by Analyzer 0 % (0-5); Neutrophil # 16.55 X10^3/uL (2.7-7.7); Neutrophil % 82.8 % (47-70); POSITIVE DIFFERENTIAL YES; Platelet Count 271 K/mm3 (150-450); RBC Distribution Width CV 13.8 % (11.6-14.6); RBC Distribution Width SD 40.1 fl (35.1-43.9)
[2020-12-23 05:51] LABS: Bedside Glucose 360 mg/dL (70-110)
[2020-12-23 06:00] LABS: Lactic Acid 1.8 mmol/L (0.4-1.9)
[2020-12-23] MEDS: metroNIDAZOLE 500 MG/100 ML BAG 100 MG IV (06:12)
[2020-12-23 06:22] LABS: Anion Gap 12 (5-15); BUN 15 mg/dL (7-18); BUN/Creat Ratio 16.5 RATIO (10-20); Calcium,Total 7.1 mg/dL (8.5-10.1); Chloride 106 mmol/L (98-107); Creatinine, Serum 0.91 mg/dL (0.55-1.02); EST Glomerular Filtration Rate 66 mL/min (>60); Est Glom Filt Rate - Afr Amer 79 mL/min (>60); Estimated Creatinine Clearance 56.93 ml/min; Glucose 301 mg/dL (74-106); Potassium 2.6 mmol/L (3.5-5.1); Sodium Level 139 mmol/L (136-145)
--- NOTE | 2020-12-23 06:37 | PCM.PN.HOSP ---
Subjective Subjective: Patient with ongoing confusion, significant encephalopathy suspected to be metabolic and possibly polypharmacy the patient is unable to give history and despite severe sepsis presentation with diarrhea there is no obvious source for these findings. Patient is able to answer to some questions but in general continues to be mildly agitated. Patient without obvious evidence of fevers, chills, nausea, emesis, abdominal pain, chest pain or dyspnea. Objective Data Objective Data Vital Signs: Vital Signs Temp Pulse Resp BP Pulse Ox 96.8 F L 99 22 H 188/51 H 94 12/23/20 04:14 12/23/20 06:00 12/23/20 06:00 12/23/20 06:00 12/23/20 06:00 Oxygen Delivery Method Room Air Weight: 299 lb 13.259 oz Body Mass Index (BMI) 48.2 Finger Stick Blood Glucose 517 Intake & Output: Intake and Output for Last 24 Hours 12/21/20 12/22/20 12/23/20 23:59 23:59 23:59 Intake Total 905.75 / 905.75 Output Total 680 / 680 Balance 225.75 / 225.75 Lab / Micro Data Result Diagrams: 12/23/20 05:20 12/23/20 05:20 Labs: Laboratory Results - last 24 hr 12/22/20 12/22/20 12/22/20 23:13 23:56 23:56 WBC 24.7 H RBC 5.77 H Hgb 15.7 H Hct 47.5 H MCV 82.3 MCH 27.2 MCHC 33.1 RDW Std Deviation 39.6 RDW Coeff of Be 13.7 Plt Count 327 MPV 9.9 Immature Gran % (Auto) 0.600 Neut % (Auto) 86.7 H Lymph % (Auto) 5.2 L [place] % (Auto) 7.1 Eos % (Auto) 0.0 Baso % (Auto) 0.4 Absolute Neuts (auto) 21.4 H Absolute Lymphs (auto) 1.29 Nucleated RBC % 0 Diff Path Review May foll Sodium 132 L Potassium 3.6 Chloride 93 L Carbon Dioxide 22.0 Anion Gap 17 H BUN 19 H Creatinine 1.33 H Estim Creat Clear Calc 38.95 Est GFR (MDRD) Af Amer 51 L Est GFR (MDRD) Non-Af 42 L BUN/Creatinine Ratio 14.3 Glucose 479 H* Lactic Acid Calcium 9.4 Total Bilirubin 2.00 H AST 15 ALT 20 Alkaline Phosphatase 162 H Troponin I B-Natriuretic Peptide Total Protein 8.5 H Albumin 3.8 Globulin 4.7 H Albumin/Globulin Ratio 0.8 L Urine Color Urine Clarity Urine pH Ur Specific [place] Urine Protein Urine Glucose (UA) Urine Ketones Urine Occult Blood Urine Nitrite Urine Bilirubin Urine Urobilinogen Ur Leukocyte Esterase Urine RBC Urine WBC Ur Squamous Epith Cells Amorphous Sediment Urine Bacteria Urine Mucus Urine Opiates Screen Urine Methadone Screen Ur Barbiturates Screen Ur Phencyclidine Scrn Ur Amphetamines Screen U Methamphetamin-MDMA U Benzodiazepines Scrn Urine Cocaine Screen U Cannabinoids Screen Ur Drug Screen Comment Ethyl Alcohol Acetone Level POC Glucose > 500 H* 12/22/20 12/22/20 12/22/20 23:56 23:56 23:56 WBC RBC Hgb Hct MCV MCH MCHC RDW Std Deviation RDW Coeff of Be Plt Count MPV Immature Gran % (Auto) Neut % (Auto) Lymph % (Auto) [place] % (Auto) Eos % (Auto) Baso % (Auto) Absolute Neuts (auto) Absolute Lymphs (auto) Nucleated RBC % Diff Path Review Sodium Potassium Chloride Carbon Dioxide Anion Gap BUN Creatinine Estim Creat Clear Calc Est GFR (MDRD) Af Amer Est GFR (MDRD) Non-Af BUN/Creatinine Ratio Glucose Lactic Acid Calcium Total Bilirubin AST ALT Alkaline Phosphatase Troponin I 0.018 B-Natriuretic Peptide 160.9 H Total Protein Albumin Globulin Albumin/Globulin Ratio Urine Color Urine Clarity Urine pH Ur Specific [place] Urine Protein Urine Glucose (UA) Urine Ketones Urine Occult Blood Urine Nitrite Urine Bilirubin Urine Urobilinogen Ur Leukocyte Esterase Urine RBC Urine WBC Ur Squamous Epith Cells Amorphous Sediment Urine Bacteria Urine Mucus Urine Opiates Screen Urine Methadone Screen Ur Barbiturates Screen Ur Phencyclidine Scrn Ur Amphetamines Screen U Methamphetamin-MDMA U Benzodiazepines Scrn Urine Cocaine Screen U Cannabinoids Screen Ur Drug Screen Comment Ethyl Alcohol 5.0 Acetone Level POC Glucose 12/22/20 12/23/20 12/23/20 23:56 01:20 01:30 WBC RBC Hgb Hct MCV MCH MCHC RDW Std Deviation RDW Coeff of Be Plt Count MPV Immature Gran % (Auto) Neut % (Auto) Lymph % (Auto) [place] % (Auto) Eos % (Auto) Baso % (Auto) Absolute Neuts (auto) Absolute Lymphs (auto) Nucleated RBC % Diff Path Review Sodium Potassium Chloride Carbon Dioxide Anion Gap BUN Creatinine Estim Creat Clear Calc Est GFR (MDRD) Af Amer Est GFR (MDRD) Non-Af BUN/Creatinine Ratio Glucose Lactic Acid 2.7 H* Calcium Total Bilirubin AST ALT Alkaline Phosphatase Troponin I B-Natriuretic Peptide Total Protein Albumin Globulin Albumin/Globulin Ratio Urine Color Yellow Urine Clarity Clear Urine pH 6.0 Ur Specific [place] 1.020 Urine Protein 100 H Urine Glucose (UA) 1000 H Urine Ketones 150 A* Urine Occult Blood 150 H Urine Nitrite Negative Urine Bilirubin Negative Urine Urobilinogen Normal Ur Leukocyte Esterase Negative Urine RBC 10-25 SEEN Urine WBC 0 SEEN Ur Squamous Epith Cells 0 SEEN Amorphous Sediment 1+ Urine Bacteria 0 SEEN Urine Mucus 0 SEEN Urine Opiates Screen Urine Methadone Screen Ur Barbiturates Screen Ur Phencyclidine Scrn Ur Amphetamines Screen U Methamphetamin-MDMA U Benzodiazepines Scrn Urine Cocaine Screen U Cannabinoids Screen Ur Drug Screen Comment Ethyl Alcohol Acetone Level SMALL H POC Glucose 12/23/20 12/23/20 12/23/20 01:30 05:20 05:20 WBC 20.0 H RBC 5.00 Hgb 13.7 Hct 41.1 MCV 82.2 MCH 27.4 MCHC 33.3 RDW Std Deviation 40.1 RDW Coeff of Be 13.8 Plt Count 271 MPV 10.1 Immature Gran % (Auto) 0.600 Neut % (Auto) 82.8 H Lymph % (Auto) 6.3 L [place] % (Auto) 9.9 Eos % (Auto) 0.1 Baso % (Auto) 0.3 Absolute Neuts (auto) 16.6 H Absolute Lymphs (auto) 1.26 Nucleated RBC % 0 Diff Path Review May foll Sodium 139 Potassium 2.6 L* Chloride 106 Carbon Dioxide 21.0 Anion Gap 12 BUN 15 Creatinine 0.91 Estim Creat Clear Calc 56.93 Est GFR (MDRD) Af Amer 79 Est GFR (MDRD) Non-Af 66 BUN/Creatinine Ratio 16.5 Glucose 301 H Lactic Acid Calcium 7.1 L Total Bilirubin AST ALT Alkaline Phosphatase Troponin I B-Natriuretic Peptide Total Protein Albumin Globulin Albumin/Globulin Ratio Urine Color Urine Clarity Urine pH Ur Specific [place] Urine Protein Urine Glucose (UA) Urine Ketones Urine Occult Blood Urine Nitrite Urine Bilirubin Urine Urobilinogen Ur Leukocyte Esterase Urine RBC Urine WBC Ur Squamous Epith Cells Amorphous Sediment Urine Bacteria Urine Mucus Urine Opiates Screen POSITIVE H Urine Methadone Screen NEGATIVE Ur Barbiturates Screen NEGATIVE Ur Phencyclidine Scrn NEGATIVE Ur Amphetamines Screen NEGATIVE U Methamphetamin-MDMA NEGATIVE U Benzodiazepines Scrn NEGATIVE Urine Cocaine Screen NEGATIVE U Cannabinoids Screen NEGATIVE Ur Drug Screen Comment Ethyl Alcohol Acetone Level POC Glucose 12/23/20 12/23/20 05:20 05:34 WBC RBC Hgb Hct MCV MCH MCHC RDW Std Deviation RDW Coeff of Be Plt Count MPV Immature Gran % (Auto) Neut % (Auto) Lymph % (Auto) [place] % (Auto) Eos % (Auto) Baso % (Auto) Absolute Neuts (auto) Absolute Lymphs (auto) Nucleated RBC % Diff Path Review Sodium Potassium Chloride Carbon Dioxide Anion Gap BUN Creatinine Estim Creat Clear Calc Est GFR (MDRD) Af Amer Est GFR (MDRD) Non-Af BUN/Creatinine Ratio Glucose Lactic Acid 1.8 Calcium Total Bilirubin AST ALT Alkaline Phosphatase Troponin I B-Natriuretic Peptide Total Protein Albumin Globulin Albumin/Globulin Ratio Urine Color Urine Clarity Urine pH Ur Specific [place] Urine Protein Urine Glucose (UA) Urine Ketones Urine Occult Blood Urine Nitrite Urine Bilirubin Urine Urobilinogen Ur Leukocyte Esterase Urine RBC Urine WBC Ur Squamous Epith Cells Amorphous Sediment Urine Bacteria Urine Mucus Urine Opiates Screen Urine Methadone Screen Ur Barbiturates Screen Ur Phencyclidine Scrn Ur Amphetamines Screen U Methamphetamin-MDMA U Benzodiazepines Scrn Urine Cocaine Screen U Cannabinoids Screen Ur Drug Screen Comment Ethyl Alcohol Acetone Level POC Glucose 360 H Micro: Microbiology 12/23/20 01:30 Urine Catheter - Catheter Legionella Antigen - Final 12/23/20 01:30 Urine Catheter - Catheter Streptococcus pneumoniae Antigen (M - Final 12/23/20 01:20 Stool C. difficile DNA Amplification - Final 12/23/20 02:50 Nasal Secretion SARS-CoV-2 Antigen (Rapid) - Final ABG Data ABG results: ABG 12/23/20 00:09 Specimen Type ART Sample Site L Radial pH 7.45 Bicarbonate Actual 19.0 L Total CO2 20 Base Excess -5 L O2 Saturation 96 ABG pCO2 27.7 L ABG pO2 75 Reuben Test Positive O2 Delivery Device Room Air Radiography Diagnostic Testing: Radiology Impression Chest X-Ray 12/22/20 00:25 IMPRESSION: Mild interstitial prominence cannot entirely exclude atypical infiltrates possible mild edema. Electronically Signed: Alexandra Gunter MD at 1:00 EDT Tel , Service support , Brain CT 12/22/20 23:11 IMPRESSION: Images study with artifact. No visualized acute hemorrhage infarct or edema. Consider follow-up study when the patient is better able to tolerate the procedure. Electronically Signed: Alexandra Gunter MD at 0:51 EDT Tel , Service support , Abdomen/Pelvis CT 12/23/20 02:45 IMPRESSION: There is a loop of thick-walled appearing small bowel which contains a small fatty mass suspicious for probable lipoma. Suspicious for enteritis. This is similar to the prior study March 09, 2018 and is associated with mild tortuosity. There is an air-fluid level within the cecum which is nonspecific. The patient may have diarrhea. There is diverticulosis without visualized diverticulitis. This appears to be recurrent since prior study 2017. Recommend consideration for upper GI small bowel follow-through. And/or CT with oral contrast. Bilateral renal atrophy no evidence of hydronephrosis. Degenerative changes of the thoracolumbar spine stable L1 hemangioma. Electronically Signed: Alexandra Gunter MD at 3:49 EDT Tel , Service support , Physical Exam Narrative Physical Examination: General: awake, appears alert but continues to be lethargic, tossing the bed and continuously muttering, intermittently more agitated. Skin: normal color, turgor, no icterus, cyanosis. HEENT: AT/NC, EOM unable to be assessed well given agitated state as noted, PERRLA, moderately dry MM. Lungs: Diffusely diminished, mildly increased respiratory rate but possibly secondary to agitation and continues to intermittently monitor, no obvious rales, ronchi or wheezing. Heart: Regular rate and rhythm; no gallop, rub audible. Abdomen: soft, morbidly obese, NTTP and no specific grimacing with palpation, difficult to assess distention given morbidly obese habitus, distant hyperactive bowel sounds. Extremities: no cyanosis, clubbing, or edema. Neurological: awake, appears alert but continues to be lethargic, tossing the bed and continuously muttering, intermittently more agitated; cognitive function not baseline intact; pupils equally reactive to light and accomodation; cranial nerves difficult to assess given current status but appear grossly normal, moving all 4 extremities, no focal deficits, strength difficult to assess as not following all commands but appears preserved especially given frequent tossing and turning in her bed. Psychiatric: affect appears agitated, no acute evidence of depressive or anxiety feelings. Assessment & Plan Assessment/Plan (1) Acute encephalopathy: PLAN: The patient is a 65 y/o F w/ PMHx: Fe deficiency anemia, Seizure disorder, PAF, HTN, HLD, Morbid obesity, Migraines, RLS, Diabetes mellitus type II with gastroparesis w/ History of cyclical N/V, Diastolic CHF, Hx Takotsubo's Cardiomyopathy, History of PE, ? Hx CVA, Rheumatoid arthritis, Chronic pain syndrome who presents to the [facility] ED on 12/23/20 with history of increased confusion and onset of loose stools. 1. Acute Encephalopathy, multifactorial, Secondary to Acute SIRS w/ Lactic Acidosis, Unclear Etiology with Diarrhea as well as #2, possible #3: Admission CBC with WBC 24.7, hemoglobin 15.7, platelet 327 with notable left shift, ABG with pH 7.45, PCO2 27.7, PO2 75 on room air, CMP with sodium 132, chloride 93, anion gap 17, BUN/creatinine 19/1.33, glucose 479, initial lactic acid 2.7 with repeat 1.8, total bilirubin 2.0, AST/ALT 15/20, alk phos 162, troponin 0.018, urinalysis with specific gravity 1.020, protein 100, glucose 1000, ketones 150, occult blood 150, negative nitrite, 10-25 urine RBC, 0 urine WBCs, 0 urine bacteria, UDS with positive opiates, ethyl alcohol 5, acetone small, chest x-ray with no acute cardiopulmonary findings, CT of the brain with no acute intracranial findings, CT abdomen pelvis with noted loop of thick-walled appearing small bowel containing a small fatty mass likely lipoma, findings suspicious for enteritis and similar to prior study February 2018 with associated mild tortuosity, and air-fluid level within the cecum which is nonspecific, diverticulosis with no evidence of diverticulitis, bilateral renal atrophy with no hydronephrosis and thoracolumbar spinal stable L1 hemangioma and degenerative changes. Patient managed to the ICU, maintained on fall and aspiration precautions, maintained on broad-spectrum antibiotic therapy currently with cefepime and vancomycin however MRSA screen pending and if negative will de-escalate, biomedical photographer consulted, blood cultures pending, no obvious source and currently C. difficile negative, enteric stool pathogen negative, awaiting O+P but given negative cdiff and enteric will place on antidiarrheal regimen, continue further evaluation as noted #2, #3 with noted correction currently of DKA, unclear possible seizure disorder contributing. 2. Acute DKA, Noted upon admission, Now resolved w/ Diabetes mellitus type II with gastroparesis: Initial ED presentation with hyperglycemia, mildly elevated anion gap, UDS with positive ketones and positive acetone level all consistent with DKA however this has since resolved upon repeat BMP this a.m., will continue to juices hydration, ADA diet, accu checks w/ ISS, HgbA1c pending, nutrition consultation for education and teaching. 3. Seizure disorder with Questionable Breakthrough seizure: Patient with underlying seizure disorder history, on pregabalin and from past review had been on lamotrigine reigmen, will continue if oral intake safe otherwise will need to transition to IV agent, will attempt EEG, maintain on seizure precautions, aspiration precautions, will also obtain MRI brain; however, given agitation may require increased sedation which may alter EEG. 4. Rheumatoid arthritis: We will continue patient home Plaquenil regimen. 5. Chronic pain syndrome, neuropathy, fibromyalgia: Will resume PRN narcotic agent as withdrawal may be component but hold for sedation. 6. Anxiety and depression/questionable bipolar disorder: Cymbalta, as needed Haldol given agitation as noted above. 7. Diastolic CHF, Hx Takotsubo's Cardiomyopathy: Maintain on asa, statin, BB, lasix. Not on MARGARETH/ARB which she had been prior 8. Hypertension: Continue home regimen including Coreg, lasix, PRN hydralazine. 9. Gout: We will continue patient home allopurinol regimen. 10. Hyperlipidemia: Continue home statin regimen. 11. Hypothyroidism: Continue home synthroid regimen. TSH 0.82, free T4 1.49 11/30/2020. 12. RLS: We will continue patient home Requip regimen. 13. Iron deficiency anemia: Admission hemoglobin 13.4, stable, not on supplementation. 14. DVT prophylaxis: SCDs, Lovenox. Procedures Hospitalists Procedures: Other Procedure - See Report (Non-billable, admitted after midnight.)
--- NOTE | 2020-12-23 06:43 | EX.PCM.CONCC ---
Assessment & Plan Assessment/Plan (1) Acute encephalopathy: (2) Severe sepsis: PLAN: RECOMMENDATIONS: 1. Hold all sedating medications. 2. Continue empiric antimicrobials, pending infectious work-up. 3. Gentle IV fluid hydration while n.p.o. 4. Continue aerosol treatments. IMPRESSIONS: 1. Severe sepsis Although no definitive source of infection has yet to declare itself, there is some concern for an underlying pulmonary infectious etiology. In addition, the patient has had diarrhea so an enteric pathogen is also a possibility. C. difficile has been ruled out. The patient remains hemodynamically stable. We will plan to continue broad-spectrum antimicrobials for now, pending culture data. 2. Encephalopathy Likely multifactorial in etiology. Concern for underlying metabolic encephalopathy. However, polypharmacy is also a consideration, as the patient was positive for opiates on her toxicology screen and she also appears to be prescribed Lyrica and Requip as an outpatient. Recommend continuing to hold sedating medications for now. If no improvement in mentation, could consider additional head imaging studies. 3. Hypokalemia Electrolyte repletion as ordered. Recheck levels in the morning. 4. History of rheumatoid arthritis/hypothyroidism/diabetes mellitus/chronic pain syndrome/obesity Complicates care, management, recovery and prognosis. Continue basal and sliding scale insulin coverage. Avoid sedating medications. This note was generated with [employer] dictation software. It may contain incorrect words, spelling, and punctuation that were not noted in checking the note before signing. HPI Consult Data Date of Consult: 12/24/20 HPI Narrative Reason for Consultation: Severe sepsis HPI Narrative: The patient is a 65-year-old female, with a history as outlined below, who presented to the emergency department on the December 22 with altered mentation. The patient was evaluated in the emergency department on both December 20 and December 21 with worsening lower extremity pain. History pertinent to the patient's hospitalization was obtained primarily via chart review, as the patient is too encephalopathic to provide any additional details. On presentation to the emergency department, the patient was initially noted to be afebrile and hypertensive. She was maintaining appropriate oxygen saturations on room air. Initial laboratory evaluation revealed an elevated white blood cell count to 25,000. Arterial blood gas obtained on room air revealed a pH of 7.45 with a PCO2 of 27 and PO2 of 75. Chemistry profile was notable for a sodium of 132, anion gap of 17 and creatinine of 1.3. Glucose was elevated to 479. Lactate was elevated to 2.7. Total bili was increased to 2.0. BNP was noted to be 160. Urine analysis was notable for ketones. Toxicology screen was positive for opiates. Small serum acetone level was noted. The patient received supplemental IV fluid hydration and insulin. She was subsequently started on antimicrobials and admitted to the medical intensive care unit for further management. [facility] Medical History (Updated 12/23/20 @ 04:[address] Jacques Santos MD) Abdominal pain Benign essential HTN Candidiasis of breast Chronic pain syndrome Depression Diabetic gastroparesis Diabetic gastroparesis Diabetic infection of right foot Diverticulitis Fibromyalgia Fibromyalgia GERD (gastroesophageal reflux disease) Hammer toe of left foot Hammer toe of right foot History of CVA (cerebrovascular accident) HLD (hyperlipidemia) Iron deficiency anemia Morbid obesity with BMI of 40.0-44.9, adult NSTEMI (non-ST elevated myocardial infarction) QIAN (obstructive sleep apnea) Paroxysmal atrial fibrillation Restless leg syndrome Rheumatoid arthritis Seizure disorder Sepsis Takotsubo cardiomyopathy Takotsubo cardiomyopathy Thyroid disease Toe osteomyelitis, right Type 2 diabetes mellitus 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 2 diabetes mellitus with diabetic polyneuropathy Ulcer of right foot Ulcer of right foot with fat layer exposed UTI (urinary tract infection) Home Medications levothyroxine 75 mcg PO DAILY 09/17/18 [History Last Taken 06/20/19 10:00] hydroxychloroquine 200 mg PO BIDCM 11/30/18 [History Last Taken 06/20/19 10:00] allopurinol 100 mg tablet 100 mg PO QHS tab 03/30/19 [History Last Taken 06/19/19 23:00] aspirin 81 mg PO DAILY 08/16/19 [History Last Taken Unknown] ropinirole 1 mg PO QHS 08/16/19 [History Last Taken Unknown] hydrocodone-acetaminophen 5-325mg 5mg-325mg 2 tab PO Q6H PRN 12/03/19 [History Last Taken Unknown] furosemide 40 mg tablet 40 mg PO DAILY PRN PRN tab 03/09/20 [History Last Taken 10/28/20 0800] pregabalin 225 mg capsule 225 mg PO BID cap 04/14/20 [History Last Taken Unknown] cholecalciferol (vitamin D3) 25 mcg (1,000 unit) capsule 25 mcg PO DAILY 12/16/20 [History Last Taken Unknown] haloperidol 1 mg PO TID PRN PRN 08/29/20 [History Last Taken Unknown] ondansetron HCl 8 mg PO Q6H PRN PRN 08/29/20 [History Last Taken Unknown] simvastatin 40 mg PO QHS 08/29/20 [History Last Taken Unknown] albuterol sulfate 2.5 mg INHALATION DAILY 09/30/20 [History Last Taken Unknown] metformin 500 mg PO DAILY 10/27/20 [History Last Taken Unknown] promethazine 25 mg PO TID PRN 10/27/20 [History Last Taken Unknown] insulin NPH isoph U-100 human 100 unit/mL (3 mL) subcutaneous pen 75 unit SC BID ml 11/30/20 [History Last Taken Unknown] budesonide 0.5 mg INHALATION BID 12/23/20 [History Last Taken Unknown] carvedilol 12.5 mg PO BID 12/23/20 [History Last Taken Unknown] duloxetine 30 mg PO BID 12/23/20 [History Last Taken Unknown] oxybutynin chloride 5 mg PO DAILY 12/23/20 [History Last Taken Unknown] Allergy/AdvReac Type Severity Reaction Status Date / Time ciprofloxacin [From Cipro] Allergy short of Verified 12/22/20 22:57 breath cyclobenzaprine Allergy rash Verified 12/22/20 22:57 levofloxacin [From Levaquin] Allergy PT UNSURE Verified 12/22/20 22:57 OF REACTION sulfamethoxazole Allergy itch Verified 12/22/20 22:57 topiramate Allergy PT UNSURE Verified 12/22/20 22:57 OF REACTION trimethoprim Allergy itch Verified 12/22/20 22:57 valacyclovir [From Valtrex] Allergy other Verified 12/22/20 22:57 ketorolac [From Toradol] AdvReac Other Verified 12/22/20 22:57 Family History Mother Myocardial infarction Asthma Diabetes Father Congestive heart failure Other Heart disease Surgical History history left foot surgery History of cholecystectomy History of knee surgery History of left heart catheterization (03/09/19) Social History Smoking Status: Heavy Smoker (>10/day) alcohol intake: never substance use type: does not use ROS Review of Systems ROS Unobtainable: due to encephalopathy Physical Exam Const no apparent distress Constitutional Narrative: Mumbling unintelligibly General Appearance: lethargic HEENT normocephalic and head/scalp atraumatic Mouth: dry mucous membranes Eyes PERRL and EOMs intact bilaterally Resp Effort and Inspection: tachypneic Auscultation: diminished lung sounds; Negative for rales, rhonchi or wheezes Cardio regular rate and regular rhythm GI normal to inspection, nondistended, normoactive bowel sounds Extremity no clubbing, cyanosis or edema Skin no rashes or lesions noted Neuro moves all extremities and no focal motor deficits Psych Activity / Motor Behavior: restless Mood & Affect: flat affect Lab / Micro Data Result Diagrams: 12/24/20 04:40 12/24/20 04:40 Labs: Laboratory Results - last 24 hr 12/22/20 12/22/20 12/22/20 23:13 23:56 23:56 WBC 24.7 H RBC 5.77 H Hgb 15.7 H Hct 47.5 H MCV 82.3 MCH 27.2 MCHC 33.1 RDW Std Deviation 39.6 RDW Coeff of Be 13.7 Plt Count 327 MPV 9.9 Immature Gran % (Auto) 0.600 Neut % (Auto) 86.7 H Lymph % (Auto) 5.2 L [place] % (Auto) 7.1 Eos % (Auto) 0.0 Baso % (Auto) 0.4 Absolute Neuts (auto) 21.4 H Absolute Lymphs (auto) 1.29 Nucleated RBC % 0 [address] Review May foll Sodium 132 L Potassium 3.6 Chloride 93 L Carbon Dioxide 22.0 Anion Gap 17 H BUN 19 H Creatinine 1.33 H Estim Creat Clear Calc 38.95 Est GFR (MDRD) Af Amer 51 L Est GFR (MDRD) Non-Af 42 L BUN/Creatinine Ratio 14.3 Glucose 479 H* Lactic Acid Calcium 9.4 Total Bilirubin 2.00 H AST 15 ALT 20 Alkaline Phosphatase 162 H Troponin I B-Natriuretic Peptide Total Protein 8.5 H Albumin 3.8 Globulin 4.7 H Albumin/Globulin Ratio 0.8 L Urine Color Urine Clarity Urine pH Ur Specific [place] Urine Protein Urine Glucose (UA) Urine Ketones Urine Occult Blood Urine Nitrite Urine Bilirubin Urine Urobilinogen Ur Leukocyte Esterase Urine RBC Urine WBC Ur Squamous Epith Cells Amorphous Sediment Urine Bacteria Urine Mucus Urine Opiates Screen Urine Methadone Screen Ur Barbiturates Screen Ur Phencyclidine Scrn Ur Amphetamines Screen U Methamphetamin-MDMA U Benzodiazepines Scrn Urine Cocaine Screen U Cannabinoids Screen Ur Drug Screen Comment Ethyl Alcohol Acetone Level POC Glucose > 500 H* 12/22/20 12/22/20 12/22/20 23:56 23:56 23:56 WBC RBC Hgb Hct MCV MCH MCHC RDW Std Deviation RDW Coeff of Be Plt Count MPV Immature Gran % (Auto) Neut % (Auto) Lymph % (Auto) [place] % (Auto) Eos % (Auto) Baso % (Auto) Absolute Neuts (auto) Absolute Lymphs (auto) Nucleated RBC % Diff Path Review Sodium Potassium Chloride Carbon Dioxide Anion Gap BUN Creatinine Estim Creat Clear Calc Est GFR (MDRD) Af Amer Est GFR (MDRD) Non-Af BUN/Creatinine Ratio Glucose Lactic Acid Calcium Total Bilirubin AST ALT Alkaline Phosphatase Troponin I 0.018 B-Natriuretic Peptide 160.9 H Total Protein Albumin Globulin Albumin/Globulin Ratio Urine Color Urine Clarity Urine pH Ur Specific [place] Urine Protein Urine Glucose (UA) Urine Ketones Urine Occult Blood Urine Nitrite Urine Bilirubin Urine Urobilinogen Ur Leukocyte Esterase Urine RBC Urine WBC Ur Squamous Epith Cells Amorphous Sediment Urine Bacteria Urine Mucus Urine Opiates Screen Urine Methadone Screen Ur Barbiturates Screen Ur Phencyclidine Scrn Ur Amphetamines Screen U Methamphetamin-MDMA U Benzodiazepines Scrn Urine Cocaine Screen U Cannabinoids Screen Ur Drug Screen Comment Ethyl Alcohol 5.0 Acetone Level POC Glucose 12/22/20 12/23/20 12/23/20 23:56 01:20 01:30 WBC RBC Hgb Hct MCV MCH MCHC RDW Std Deviation RDW Coeff of Be Plt Count MPV Immature Gran % (Auto) Neut % (Auto) Lymph % (Auto) [place] % (Auto) Eos % (Auto) Baso % (Auto) Absolute Neuts (auto) Absolute Lymphs (auto) Nucleated RBC % Diff Path Review Sodium Potassium Chloride Carbon Dioxide Anion Gap BUN Creatinine Estim Creat Clear Calc Est GFR (MDRD) Af Amer Est GFR (MDRD) Non-Af BUN/Creatinine Ratio Glucose Lactic Acid 2.7 H* Calcium Total Bilirubin AST ALT Alkaline Phosphatase Troponin I B-Natriuretic Peptide Total Protein Albumin Globulin Albumin/Globulin Ratio Urine Color Yellow Urine Clarity Clear Urine pH 6.0 Ur Specific [place] 1.020 Urine Protein 100 H Urine Glucose (UA) 1000 H Urine Ketones 150 A* Urine Occult Blood 150 H Urine Nitrite Negative Urine Bilirubin Negative Urine Urobilinogen Normal Ur Leukocyte Esterase Negative Urine RBC 10-25 SEEN Urine WBC 0 SEEN Ur Squamous Epith Cells 0 SEEN Amorphous Sediment 1+ Urine Bacteria 0 SEEN Urine Mucus 0 SEEN Urine Opiates Screen Urine Methadone Screen Ur Barbiturates Screen Ur Phencyclidine Scrn Ur Amphetamines Screen U Methamphetamin-MDMA U Benzodiazepines Scrn Urine Cocaine Screen U Cannabinoids Screen Ur Drug Screen Comment Ethyl Alcohol Acetone Level SMALL H POC Glucose 12/23/20 12/23/20 12/23/20 01:30 05:20 05:20 WBC 20.0 H RBC 5.00 Hgb 13.7 Hct 41.1 MCV 82.2 MCH 27.4 MCHC 33.3 RDW Std Deviation 40.1 RDW Coeff of Be 13.8 Plt Count 271 MPV 10.1 Immature Gran % (Auto) 0.600 Neut % (Auto) 82.8 H Lymph % (Auto) 6.3 L [place] % (Auto) 9.9 Eos % (Auto) 0.1 Baso % (Auto) 0.3 Absolute Neuts (auto) 16.6 H Absolute Lymphs (auto) 1.26 Nucleated RBC % 0 Diff Path Review May foll Sodium 139 Potassium 2.6 L* Chloride 106 Carbon Dioxide 21.0 Anion Gap 12 BUN 15 Creatinine 0.91 Estim Creat Clear Calc 56.93 Est GFR (MDRD) Af Amer 79 Est GFR (MDRD) Non-Af 66 BUN/Creatinine Ratio 16.5 Glucose 301 H Lactic Acid Calcium 7.1 L Total Bilirubin AST ALT Alkaline Phosphatase Troponin I B-Natriuretic Peptide Total Protein Albumin Globulin Albumin/Globulin Ratio Urine Color Urine Clarity Urine pH Ur Specific [place] Urine Protein Urine Glucose (UA) Urine Ketones Urine Occult Blood Urine Nitrite Urine Bilirubin Urine Urobilinogen Ur Leukocyte Esterase Urine RBC Urine WBC Ur Squamous Epith Cells Amorphous Sediment Urine Bacteria Urine Mucus Urine Opiates Screen POSITIVE H Urine Methadone Screen NEGATIVE Ur Barbiturates Screen NEGATIVE Ur Phencyclidine Scrn NEGATIVE Ur Amphetamines Screen NEGATIVE U Methamphetamin-MDMA NEGATIVE U Benzodiazepines Scrn NEGATIVE Urine Cocaine Screen NEGATIVE U Cannabinoids Screen NEGATIVE Ur Drug Screen Comment Ethyl Alcohol Acetone Level POC Glucose 12/23/20 12/23/20 05:20 05:34 WBC RBC Hgb Hct MCV MCH MCHC RDW Std Deviation RDW Coeff of Be Plt Count MPV Immature Gran % (Auto) Neut % (Auto) Lymph % (Auto) [place] % (Auto) Eos % (Auto) Baso % (Auto) Absolute Neuts (auto) Absolute Lymphs (auto) Nucleated RBC % Diff Path Review Sodium Potassium Chloride Carbon Dioxide Anion Gap BUN Creatinine Estim Creat Clear Calc Est GFR (MDRD) Af Amer Est GFR (MDRD) Non-Af BUN/Creatinine Ratio Glucose Lactic Acid 1.8 Calcium Total Bilirubin AST ALT Alkaline Phosphatase Troponin I B-Natriuretic Peptide Total Protein Albumin Globulin Albumin/Globulin Ratio Urine Color Urine Clarity Urine pH Ur Specific [place] Urine Protein Urine Glucose (UA) Urine Ketones Urine Occult Blood Urine Nitrite Urine Bilirubin Urine Urobilinogen Ur Leukocyte Esterase Urine RBC Urine WBC Ur Squamous Epith Cells Amorphous Sediment Urine Bacteria Urine Mucus Urine Opiates Screen Urine Methadone Screen Ur Barbiturates Screen Ur Phencyclidine Scrn Ur Amphetamines Screen U Methamphetamin-MDMA U Benzodiazepines Scrn Urine Cocaine Screen U Cannabinoids Screen Ur Drug Screen Comment Ethyl Alcohol Acetone Level POC Glucose 360 H Micro: Microbiology 12/23/20 01:30 Legionella Antigen - Final Urine Catheter - Catheter Streptococcus pneumoniae Antigen (M - Final 12/23/20 01:20 C. difficile DNA Amplification - Final Stool 12/23/20 02:50 SARS-CoV-2 Antigen (Rapid) - Final Nasal Secretion ABG Data ABG results: ABG 12/23/20 00:09 Specimen Type ART Sample Site L Radial pH 7.45 Bicarbonate Actual 19.0 L Total CO2 20 Base Excess -5 L O2 Saturation 96 ABG pCO2 27.7 L ABG pO2 75 Reuben Test Positive O2 Delivery Device Room Air Radiology Impression Chest X-Ray 12/22/20 00:25 IMPRESSION: Mild interstitial prominence cannot entirely exclude atypical infiltrates possible mild edema. Electronically Signed: Alexandra Gunter MD at 1:00 EDT Tel , Service support , Brain CT 12/22/20 23:11 IMPRESSION: Images study with artifact. No visualized acute hemorrhage infarct or edema. Consider follow-up study when the patient is better able to tolerate the procedure. Electronically Signed: Alexandra Gunter MD at 0:51 EDT Tel , Service support , Abdomen/Pelvis CT 12/23/20 02:45 IMPRESSION: There is a loop of thick-walled appearing small bowel which contains a small fatty mass suspicious for probable lipoma. Suspicious for enteritis. This is similar to the prior study March 09, 2018 and is associated with mild tortuosity. There is an air-fluid level within the cecum which is nonspecific. The patient may have diarrhea. There is diverticulosis without visualized diverticulitis. This appears to be recurrent since prior study 2017. Recommend consideration for upper GI small bowel follow-through. And/or CT with oral contrast. Bilateral renal atrophy no evidence of hydronephrosis. Degenerative changes of the thoracolumbar spine stable L1 hemangioma. Electronically Signed: Alexandra Gunter MD at 3:49 EDT Tel , Service support , Charges/Coding Visit Charges Inpatient E&M: 25204 Init Hosp L3
[2020-12-23] MEDS: Budesonide Respules 0.5 MG/2 ML AMPUL.NEB. INHALATION ×2 (07:41→19:15)
[2020-12-23] MEDS: Haloperidol Lactate 5 MG/ML Vial 1 MG IV ×2 (08:03→11:53)
[2020-12-23] MEDS: Potassium Chloride IVPB 10 MEQ 100 MEQ IV BOLUS ×8 (09:47→19:39)
[2020-12-23] MEDS: Enoxaparin 40 MG/0.4 ML Syringe SC (10:47)
[2020-12-23] MEDS: Insulin NPH Human 100 UNITS/ML PEN 35 UNITS SC ×2 (10:59→23:24)
[2020-12-23 11:06] LABS: Bedside Glucose 356 mg/dL (70-110)
[2020-12-23 12:00] LABS: Pathologist Review Reviewed
[2020-12-23 12:00] LABS: Pathologist Review Reviewed
[2020-12-23 12:24] LABS: M R Staph aureus DNA By PCR Negative (Negative); Probe Check PASS; Specimen Processing Control PASS
--- NOTE | 2020-12-23 12:48 | CASEMGMT ---
ALMA KLINE assessment: Chart review for initial transition planning/care coordination assessment. Assessment info obtained from CM info from last several visits. Pt with a GCS of 13 and combative with staff at times. ALMA KLINE unable to complete assessment with pt at this time d/t pt mentation. Pt had 2 ED visits this week for leg pain prior to admission. Presentation: Pt restless, not herself, diarrhea and having BM's all over home-blood sugar reading 'High' Admitting dx: Severe sepsis PCP: Charly Specialists: Galindo, nephro; Sonam, endocrinology; Terra, cardio Preferred [facility]acy: [facility] Insurance: [facility] Prescription Benefit: Yes Living Will/HPOA: Pt has LW/HPOA and they are on file at [facility]. Pt's sister, Linda Mike, is HPOA. LNOK: Linda Mike, sister/HPOA Living Arrangements: Pt lives alone in 1 story home with 2 steps in and is normally independent with ADL's but sister does help pt manage finances. DME/HHC: Pt has the following DME: cane, walker, w/c, raised toilet seat, and grab bars. Pt has had [facility] HHC in the past. Pt has also been to [facility] and [facility] in the past. Pt is retired. CM to follow for further discharge planning/needs and to f/u with pt once more alert, able to answer questions. Plan: TBD, pending clinical course, improved mentation. SStaten ALMA KLINE
--- NOTE | 2020-12-23 13:14 | CASEMGMT ---
Addendum entered by Romana Ford 12/23/20 15:12: Call back from [facility] at [facility]iative and she state they have not been active with pt since 2019. [facility] palliative screening tool completed and pt does not qualify for palliative consult via screening tool at this time. CM to follow. Nilson MARQUEZ CM Original Note: Per previous CM assessment notes, pt had been active with [facility]. Call to [facility] to see if pt still active and message left for palliative to call this RN CM back. Nilson MARQUEZ CM
[2020-12-23 14:21] LABS: Hemoglobin A1c 8.9 % (3.8-5.6)
[2020-12-23] MEDS: Ziprasidone IM 20 MG/ML VIAL 10 MG IM ×2 (14:48→15:29)
--- NOTE | 2020-12-23 16:15 | NURSING ---
PT TRANSPORTED BACK TO MRI BY THIS RN AFTER SPEAKING WITH DR BEDOYA. DR BEDOYA INFORMED THAT FOLLOWING SECOND DOSE OF GEODON, WHILE MORE RELAXED AND LESS HYPERTENSIVE, PT CONTINUES TO REFUSE TO LAY ON HER BACK AND DOES NOT UNDERSTAND DIRECTIONS TO LIE ON HER BACK TO EVEN TRANSFER TO THE MRI TABLE. REPORT GIVEN TO ALMA CALLE, WHO IS AWARE THAT IF PATIENT WILL LIE ON HER BACK TO CALL MRI TO SEE ABOUT RETURNING FOR ORDERED SCAN.
[2020-12-23] MEDS: Nystatin Powder 15gm Bottle 1 APPLIC TOPICAL ×2 (16:16→22:23)
[2020-12-23 18:16] LABS: Bedside Glucose 285 mg/dL (70-110)
[2020-12-23] MEDS: Lidocaine 5% Patch 1 PATCH TOPICAL (22:42)
[2020-12-23 23:56] LABS: Bedside Glucose 270 mg/dL (70-110)
[2020-12-24] VITALS (23 sets, daily range): BP systolic 125–199; BP diastolic 65–115; PULSE 84–119; RESP 20–36; TEMP 37.1–37.7; O2SAT 92–100
[2020-12-24] MEDS: Metoclopramide 10 MG/2 ML Vial 5 MG IV (01:38)
[2020-12-24] MEDS: Haloperidol Lactate 5 MG/ML Vial 2 MG IV (02:40)
[2020-12-24 04:58] LABS: Basophil# 0.11 X10^3/uL; Basophil% 0.6 % (0-1); Eosinophil# 0.13 X10^3/uL; Eosinophils% 0.7 % (0-5); Hematocrit 46.9 % (37-47); Hemoglobin 15.3 g/dL (12.0-15.0); Lymphocyte % 8.1 % (19-41); Mean Corp Hgb Conc 32.6 g/dL (32-36); Mean Corpuscular Hgb 27.4 pg (27.0-32.0); Mean Corpuscular Volume 84.1 fL (81-99); Mean Platelet Vol. 9.8 fl (6.2-12.0); Monocyte# 1.72 X10^3/uL; Monocyte% 8.7 % (0-10); NRBC Flagged by Analyzer 0 % (0-5); Neutrophil # 16.01 X10^3/uL (2.7-7.7); Neutrophil % 81.4 % (47-70); POSITIVE DIFFERENTIAL YES; Platelet Count 287 K/mm3 (150-450); RBC Distribution Width CV 14.3 % (11.6-14.6); Red Blood Count 5.58 M/mm3 (4.2-5.4); White Blood Count 19.7 K/mm3 (4.4-11.0)
[2020-12-24 05:03] LABS: Differential Indicated SCAN CRITERIA MET
[2020-12-24 05:18] LABS: ALB/GLOB Ratio 0.7 RATIO (0.9-2.4); AST(SGOT) 26 U/L (15-37); Alanine Aminotransfer ALT/SGPT 22 U/L (13-56); Albumin, Serum 3.2 g/dL (3.2-5.0); Alkaline Phosphatase 142 U/L (45-117); Anion Gap 10 (5-15); BUN 11 mg/dL (7-18); BUN/Creat Ratio 12.1 RATIO (10-20); Calcium,Total 8.9 mg/dL (8.5-10.1); Chloride 106 mmol/L (98-107); Creatinine, Serum 0.91 mg/dL (0.55-1.02); EST Glomerular Filtration Rate 66 mL/min (>60); Est Glom Filt Rate - Afr Amer 80 mL/min (>60); Estimated Creatinine Clearance 56.93 ml/min; Globulin 4.4 g/dL (2.2-4.2); Glucose 221 mg/dL (74-106); Potassium 3.3 mmol/L (3.5-5.1); Protein, Total 7.6 g/dL (6.4-8.2); Sodium Level 138 mmol/L (136-145)
[2020-12-24] MEDS: Nystatin Powder 15gm Bottle 1 APPLIC TOPICAL ×3 (05:38→20:39)
[2020-12-24] MEDS: Insulin Lispro 100 UNIT/ML INSULN.PEN SC ×4 (06:15→23:17)
[2020-12-24 06:21] LABS: Bedside Glucose 202 mg/dL (70-110)
--- NOTE | 2020-12-24 06:26 | PN.HOSP_ITS ---
Subjective Subjective: Patient overnight with required sedation given agitation but despite this was unable to perform MRI secondary to patient inability to lay on her back. This morning patient will stop her muttering and will have a discussion which appears appropriate but will then return to her side and begin monitoring again. Patient herself denies fevers, chills, nausea, emesis, abdominal pain, chest pain or dyspnea however do note low-grade temperatures. Objective Data Objective Data Vital Signs: Vital Signs Temp Pulse Resp BP Pulse Ox 99.8 F H 116 H 26 H 157/115 H 99 12/24/20 06:00 12/24/20 06:00 12/24/20 06:00 12/24/20 06:00 12/24/20 06:00 Oxygen Flow Rate (L/min) 2 Oxygen Delivery Method Room Air Weight: 299 lb 2.676 oz Body Mass Index (BMI) 48.2 Finger Stick Blood Glucose 517 Intake & Output: Intake and Output for Last 24 Hours 12/22/20 12/23/20 12/24/20 23:59 23:59 23:59 Intake Total 3846.58 / 3846.58 0 / 0 Output Total 1205 / 1955 1075 / 1075 Balance 2641.58 / 1891.58 -1075 / -1075 Lab / Micro Data Result Diagrams: 12/24/20 04:40 12/24/20 04:40 Labs: Laboratory Results - last 24 hr 12/22/20 12/23/20 12/23/20 23:56 05:20 05:20 WBC RBC Hgb Hct MCV MCH MCHC RDW Std Deviation RDW Coeff of Be Plt Count MPV Immature Gran % (Auto) Neut % (Auto) Lymph % (Auto) Spencer % (Auto) Eos % (Auto) Baso % (Auto) Absolute Neuts (auto) Absolute Lymphs (auto) Nucleated RBC % Diff Path Review Reviewed Reviewed Sodium Potassium Chloride Carbon Dioxide Anion Gap BUN Creatinine Estim Creat Clear Calc Est GFR (MDRD) Af Amer Est GFR (MDRD) Non-Af BUN/Creatinine Ratio Glucose Hemoglobin A1c 8.9 H Calcium Total Bilirubin AST ALT Alkaline Phosphatase Total Protein Albumin Globulin Albumin/Globulin Ratio MRSA (PCR) POC Glucose 12/23/20 12/23/20 12/23/20 08:17 10:58 18:13 WBC RBC Hgb Hct MCV MCH MCHC RDW Std Deviation RDW Coeff of Be Plt Count MPV Immature Gran % (Auto) Neut % (Auto) Lymph % (Auto) Spencer % (Auto) Eos % (Auto) Baso % (Auto) Absolute Neuts (auto) Absolute Lymphs (auto) Nucleated RBC % Diff Path Review Sodium Potassium Chloride Carbon Dioxide Anion Gap BUN Creatinine Estim Creat Clear Calc Est GFR (MDRD) Af Amer Est GFR (MDRD) Non-Af BUN/Creatinine Ratio Glucose Hemoglobin A1c Calcium Total Bilirubin AST ALT Alkaline Phosphatase Total Protein Albumin Globulin Albumin/Globulin Ratio MRSA (PCR) Negative POC Glucose 356 H 285 H 12/23/20 12/24/20 12/24/20 23:21 04:40 04:40 WBC 19.7 H RBC 5.58 H Hgb 15.3 H Hct 46.9 MCV 84.1 MCH 27.4 MCHC 32.6 RDW Std Deviation 43.0 RDW Coeff of Be 14.3 Plt Count 287 MPV 9.8 Immature Gran % (Auto) 0.500 Neut % (Auto) 81.4 H Lymph % (Auto) 8.1 L Spencer % (Auto) 8.7 Eos % (Auto) 0.7 Baso % (Auto) 0.6 Absolute Neuts (auto) 16.0 H Absolute Lymphs (auto) 1.60 Nucleated RBC % 0 Diff Path Review May foll Sodium 138 Potassium 3.3 L Chloride 106 Carbon Dioxide 22.0 Anion Gap 10 BUN 11 Creatinine 0.91 Estim Creat Clear Calc 56.93 Est GFR (MDRD) Af Amer 80 Est GFR (MDRD) Non-Af 66 BUN/Creatinine Ratio 12.1 Glucose 221 H Hemoglobin A1c Calcium 8.9 Total Bilirubin 1.50 H AST 26 ALT 22 Alkaline Phosphatase 142 H Total Protein 7.6 Albumin 3.2 Globulin 4.4 H Albumin/Globulin Ratio 0.7 L MRSA (PCR) POC Glucose 270 H 12/24/20 06:13 WBC RBC Hgb Hct MCV MCH MCHC RDW Std Deviation RDW Coeff of Be Plt Count MPV Immature Gran % (Auto) Neut % (Auto) Lymph % (Auto) Spencer % (Auto) Eos % (Auto) Baso % (Auto) Absolute Neuts (auto) Absolute Lymphs (auto) Nucleated RBC % Diff Path Review Sodium Potassium Chloride Carbon Dioxide Anion Gap BUN Creatinine Estim Creat Clear Calc Est GFR (MDRD) Af Amer Est GFR (MDRD) Non-Af BUN/Creatinine Ratio Glucose Hemoglobin A1c Calcium Total Bilirubin AST ALT Alkaline Phosphatase Total Protein Albumin Globulin Albumin/Globulin Ratio MRSA (PCR) POC Glucose 202 H Micro: Microbiology 12/23/20 07:50 Stool Enteric Bacteriology - Final 12/23/20 07:50 Stool Stool Lactoferrin - Final 12/23/20 04:45 Mucosa - Nasopharyngeal Respiratory Panel (PCR) - Final 12/23/20 01:30 Urine Catheter - Catheter Legionella Antigen - Final 12/23/20 01:30 Urine Catheter - Catheter Streptococcus pneumoniae Antigen (M - Final 12/23/20 01:20 Stool C. difficile DNA Amplification - Final 12/23/20 02:50 Nasal Secretion SARS-CoV-2 Antigen (Rapid) - Final Physical Exam Narrative Physical Examination: General: awake, appears alert but continues to move in the bed, continue monito ring and intermittently agitated, does stop during this however this morning and will answer questions appropriately but returns to this state following. Skin: normal color, turgor, no icterus, cyanosis except noted mild skin dermatitis especially to the posterior thorax. HEENT: AT/NC, EOMI, PERRLA, moderately dry MM, evidence of oral thrush and able today to follow commands when request to open her mouth and stick out her tongue even. Lungs: Diffusely diminished, mildly increased respiratory rate but likely secondary to frequent monitoring, mildly diminished at bases, no obvious rales, ronchi or wheezing. Heart: Regular rate and rhythm; no gallop, rub audible. Abdomen: soft, morbidly obese, NTTP, difficult to assess distention given morbidly obese habitus, distant normalized BS. Extremities: no cyanosis, clubbing, or edema. Neurological: awake, appears alert but continues to move in the bed, continue monitoring and intermittently agitated, does stop during this however this morning and will answer questions appropriately but returns to this state following, intermittently more agitated; cognitive function not baseline intact; pupils equally reactive to light and accomodation; cranial nerves difficult to assess given current status but appear grossly normal, moving all 4 extremities, no focal deficits, strength difficult to assess as not following commands. Psychiatric: affect appears agitated still, no acute evidence of depressive or anxiety feelings. Assessment & Plan Assessment/Plan (1) Acute encephalopathy: PLAN: The patient is a 65 y/o F w/ PMHx: Fe deficiency anemia, Seizure disorder, PAF, HTN, HLD, Morbid obesity, Migraines, RLS, Diabetes mellitus type II with gastroparesis w/ History of cyclical N/V, Diastolic CHF, Hx Takotsubo's Cardiomyopathy, History of PE, ? Hx CVA, Rheumatoid arthritis, Chronic pain syndrome who presents to the [facility] ED on 12/23/20 with history of increased confusion and onset of loose stools. 1. Acute Encephalopathy, multifactorial, Secondary to Acute SIRS w/ Lactic Acidosis, Unclear Etiology with Diarrhea as well as #2, possible #3: Admission CBC with WBC 24.7, hemoglobin 15.7, platelet 327 with notable left shift, ABG with pH 7.45, PCO2 27.7, PO2 75 on room air, CMP with sodium 132, chloride 93, anion gap 17, BUN/creatinine 19/1.33, glucose 479, initial lactic acid 2.7 with repeat 1.8, total bilirubin 2.0, AST/ALT 15/20, alk phos 162, troponin 0.018, urinalysis with specific gravity 1.020, protein 100, glucose 1000, ketones 150, occult blood 150, negative nitrite, 10-25 urine RBC, 0 urine WBCs, 0 urine bacteria, UDS with positive opiates, ethyl alcohol 5, acetone small, chest x-ray with no acute cardiopulmonary findings, CT of the brain with no acute intracranial findings, CT abdomen pelvis with noted loop of thick-walled ric earing small bowel containing a small fatty mass likely lipoma, findings suspicious for enteritis and similar to prior study February 2018 with associated mild tortuosity, and air-fluid level within the cecum which is nonspecific, diverticulosis with no evidence of diverticulitis, bilateral renal atrophy with no hydronephrosis and thoracolumbar spinal stable L1 hemangioma and degenerative changes. Patient managed to the ICU, maintained on fall and aspiration precautions, maintained on broad-spectrum antibiotic therapy currently with cefepime and vancomycin however MRSA screen negative thus discontinued 12/23/20, no obvious source and currently C. difficile negative, enteric stool pathogen negative, awaiting O+P but given negative c-diff and enteric placed on antidiarrheal regimen, continue further evaluation as noted #2, #3 with noted correction currently of DKA, unclear possible seizure disorder contributing. Attempting sedation to obtain MRI brain, obviously will alter EEG but attempting. Has had low grade T overnight, CBC improving only mildly w/ 12/24/20 WBC 19.7 w/ L shift. Urine antigens negative. Bld Cx pending from ED presentation. No nuchal rigidity and confounded exam given intermittently appropriate, unclear if possibly psychiatric component. Given presentation, will consider request w/ teleneurology depending on MRI findings and if remains inpatient may require ID evaluation Saturday. 2. Acute DKA, Noted upon admission, Now resolved w/ Diabetes mellitus type II with gastroparesis: Initial ED presentation with hyperglycemia, mildly elevated anion gap, UDS with positive ketones and positive acetone level all consistent with DKA however this has since resolved, will continue to juices hydration, will allow ADA diet once mental status improved as noted #1, accu checks w/ ISS, HgbA1c 8.9% from prior 10/28/20 6.5%, nutrition consultation for education and teaching. 3. Seizure disorder with ? Questionable Breakthrough seizure: Patient with underlying seizure disorder history, on pregabalin and from past review had been on lamotrigine regimen, while NPO transitioning to IV keppra 500 mg BID, 12/23/20 failed attempt with EEG, 12/23/20 failed attempt with MRI brain despite sedation. Discussed with ICU/CC physician and noted intention for more aggressive sedation attempts today in order to be able to obtain MRI brain. 4. Rheumatoid arthritis: Hold oral Plaquenil regimen. 5. Chronic pain syndrome, neuropathy, fibromyalgia: Holding oral narcotic regimen. 6. Anxiety and depression/questionable bipolar disorder: Holding Cymbalta regimen, continue PRN IM haldol. 7. Diastolic CHF, Hx Takotsubo's Cardiomyopathy: Holding home asa, statin, BB, lasix. Not on MARGARETH/ARB which she had been prior. 8. Hypertension: Holding Coreg, lasix, maintain in interim PRN hydralazine. 9. Gout: Hold home allopurinol regimen. 10. Hyperlipidemia: Hold home statin regimen. 11. Hypothyroidism: Hold home synthroid regimen. TSH 0.82, free T4 1.49 11/30/2020. If prolonged may transition to 1/2 IV dosing daily. 12. RLS: Holding home Requip regimen. 13. Iron deficiency anemia: Admission hemoglobin 13.4, repeat 12/24/20 Hgb 15.3, continue to trend. 14. DVT prophylaxis: SCDs, Lovenox. Visit Charges Inpatient E&M: 92058 Subs Hosp L3
--- NOTE | 2020-12-24 06:32 | PCM.PN.INT ---
Subjective Subjective: The patient was seen and examined at the bedside this morning. Events from the last 24 hours have been reviewed. The patient currently has a low-grade fever with a T-max overnight 100 ?F. She is otherwise hemodynamically stable and maintaining appropriate oxygen saturations on room air. Attempt to obtain MRI and EEG yesterday were unsuccessful due to a lack of patient cooperation. The patient is currently documented to be overall net +1.5 L for the hospital admission. White blood cell count remains elevated at 20,000. Potassium is low at 3.3. Creatinine is within normal limits. The patient remains on broad-spectrum antimicrobials and supplemental IV fluid hydration. The patient is largely unchanged from a mental status perspective and remains impulsive, restless and confused. Objective Data Objective Data The patient's most recent lab work, culture data and imaging studies have all been personally reviewed. Infectious work-up has been unrevealing to date. Vital Signs: Vital Signs Temp Pulse Resp BP Pulse Ox 99.8 F H 116 H 26 H 157/115 H 99 12/24/20 06:00 12/24/20 06:00 12/24/20 06:00 12/24/20 06:00 12/24/20 06:00 Oxygen Flow Rate (L/min) 2 Oxygen Delivery Method Room Air Weight: 299 lb 2.676 oz Body Mass Index (BMI) 48.2 Finger Stick Blood Glucose 517 Intake & Output: Intake and Output for Last 24 Hours 12/22/20 12/23/20 12/24/20 23:59 23:59 23:59 Intake Total 3846.58 / 3846.58 0 / 0 Output Total 1205 / 1955 1075 / 1075 Balance 2641.58 / 1891.58 -1075 / -1075 Lab / Micro Data Attestation: I reviewed the patient's lab results. Result Diagrams: 12/25/20 04:40 12/25/20 04:40 Labs: Laboratory Results - last 24 hr 12/22/20 12/23/20 12/23/20 23:56 05:20 05:20 WBC RBC Hgb Hct MCV MCH MCHC RDW Std Deviation RDW Coeff of Be Plt Count MPV Immature Gran % (Auto) Neut % (Auto) Lymph % (Auto) Larue % (Auto) Eos % (Auto) Baso % (Auto) Absolute Neuts (auto) Absolute Lymphs (auto) Nucleated RBC % Diff Path Review Reviewed Reviewed Sodium Potassium Chloride Carbon Dioxide Anion Gap BUN Creatinine Estim Creat Clear Calc Est GFR (MDRD) Af Amer Est GFR (MDRD) Non-Af BUN/Creatinine Ratio Glucose Hemoglobin A1c 8.9 H Calcium Total Bilirubin AST ALT Alkaline Phosphatase Total Protein Albumin Globulin Albumin/Globulin Ratio MRSA (PCR) POC Glucose 12/23/20 12/23/20 12/23/20 08:17 10:58 18:13 WBC RBC Hgb Hct MCV MCH MCHC RDW Std Deviation RDW Coeff of Be Plt Count MPV Immature Gran % (Auto) Neut % (Auto) Lymph % (Auto) Larue % (Auto) Eos % (Auto) Baso % (Auto) Absolute Neuts (auto) Absolute Lymphs (auto) Nucleated RBC % Diff Path Review Sodium Potassium Chloride Carbon Dioxide Anion Gap BUN Creatinine Estim Creat Clear Calc Est GFR (MDRD) Af Amer Est GFR (MDRD) Non-Af BUN/Creatinine Ratio Glucose Hemoglobin A1c Calcium Total Bilirubin AST ALT Alkaline Phosphatase Total Protein Albumin Globulin Albumin/Globulin Ratio MRSA (PCR) Negative POC Glucose 356 H 285 H 12/23/20 12/24/20 12/24/20 23:21 04:40 04:40 WBC 19.7 H RBC 5.58 H Hgb 15.3 H Hct 46.9 MCV 84.1 MCH 27.4 MCHC 32.6 RDW Std Deviation 43.0 RDW Coeff of Be 14.3 Plt Count 287 MPV 9.8 Immature Gran % (Auto) 0.500 Neut % (Auto) 81.4 H Lymph % (Auto) 8.1 L Larue % (Auto) 8.7 Eos % (Auto) 0.7 Baso % (Auto) 0.6 Absolute Neuts (auto) 16.0 H Absolute Lymphs (auto) 1.60 Nucleated RBC % 0 Diff Path Review May foll Sodium 138 Potassium 3.3 L Chloride 106 Carbon Dioxide 22.0 Anion Gap 10 BUN 11 Creatinine 0.91 Estim Creat Clear Calc 56.93 Est GFR (MDRD) Af Amer 80 Est GFR (MDRD) Non-Af 66 BUN/Creatinine Ratio 12.1 Glucose 221 H Hemoglobin A1c Calcium 8.9 Total Bilirubin 1.50 H AST 26 ALT 22 Alkaline Phosphatase 142 H Total Protein 7.6 Albumin 3.2 Globulin 4.4 H Albumin/Globulin Ratio 0.7 L MRSA (PCR) POC Glucose 270 H 12/24/20 06:13 WBC RBC Hgb Hct MCV MCH MCHC RDW Std Deviation RDW Coeff of Be Plt Count MPV Immature Gran % (Auto) Neut % (Auto) Lymph % (Auto) Larue % (Auto) Eos % (Auto) Baso % (Auto) Absolute Neuts (auto) Absolute Lymphs (auto) Nucleated RBC % Diff Path Review Sodium Potassium Chloride Carbon Dioxide Anion Gap BUN Creatinine Estim Creat Clear Calc Est GFR (MDRD) Af Amer Est GFR (MDRD) Non-Af BUN/Creatinine Ratio Glucose Hemoglobin A1c Calcium Total Bilirubin AST ALT Alkaline Phosphatase Total Protein Albumin Globulin Albumin/Globulin Ratio MRSA (PCR) POC Glucose 202 H Micro: Microbiology 12/23/20 07:50 Stool Enteric Bacteriology - Final 12/23/20 07:50 Stool Stool Lactoferrin - Final 12/23/20 04:45 Mucosa - Nasopharyngeal Respiratory Panel (PCR) - Final 12/23/20 01:30 Urine Catheter - Catheter Legionella Antigen - Final 12/23/20 01:30 Urine Catheter - Catheter Streptococcus pneumoniae Antigen (M - Final 12/23/20 01:20 Stool C. difficile DNA Amplification - Final 12/23/20 02:50 Nasal Secretion SARS-CoV-2 Antigen (Rapid) - Final Physical Exam Const alert and no apparent distress Constitutional Narrative: Mumbling unintelligibly General Appearance: lethargic HEENT normocephalic, head/scalp atraumatic and moist oral mucous membranes Mouth: dry mucous membranes Eyes PERRL, EOMs intact bilaterally and conjunctivae normal Resp Effort and Inspection: tachypneic Auscultation: diminished lung sounds; Negative for rales, rhonchi or wheezes Cardio regular rhythm, S1 normal heart sound and S2 normal heart sound Rate: tachycardic GI normal to inspection, nondistended, normoactive bowel sounds Extremity no clubbing, cyanosis or edema Skin no rashes or lesions noted Neuro moves all extremities and no focal motor deficits Psych Activity / Motor Behavior: restless Mood & Affect: flat affect Assessment & Plan Assessment/Plan (1) Acute encephalopathy: (2) Severe sepsis: PLAN: RECOMMENDATIONS: 1. Continue to hold all sedating medications. 2. Continue empiric antimicrobials, pending infectious work-up. 3. Gentle IV fluid hydration while n.p.o. 4. Continue aerosol treatments. 5. Consider MRI and EEG today. 6. Obtain neurology consultation. IMPRESSIONS: 1. Severe sepsis Although no definitive source of infection has yet to declare itself, there is some concern for an underlying pulmonary infectious etiology. In addition, the patient has had diarrhea so an enteric pathogen is also a possibility. C. difficile has been ruled out. The patient remains hemodynamically stable. We will plan to continue broad-spectrum antimicrobials for now, pending culture data. 2. Encephalopathy Likely multifactorial in etiology. Concern for underlying metabolic encephalopathy. However, polypharmacy is also a consideration, as the patient was positive for opiates on her toxicology screen and she also appears to be prescribed Lyrica and Requip as an outpatient. Recommend continuing to hold sedating medications for now. Given overall lack of improvement, tentative plans for MRI and EEG today, if feasible. Recommend obtaining neurology consultation as well. 3. Hypokalemia Additional electrolyte repletion as ordered. Recheck levels in the morning. 4. History of rheumatoid arthritis/hypothyroidism/diabetes mellitus/chronic pain syndrome/obesity Complicates care, management, recovery and prognosis. Continue basal and sliding scale insulin coverage. Avoid sedating medications. This note was generated with [employer] dictation software. It may contain incorrect words, spelling, and punctuation that were not noted in checking the note before signing. Visit Charges Inpatient E&M: 08438 [facility] Hosp L3
--- NOTE | 2020-12-24 10:00 | NURSING ---
Dr Hawley aware that pt will not leave her telemetry on, will not hold still for blood pressure and will not leave pulse ox on. OK to continue to monitor. Attempt to place telemetry when able.
[2020-12-24] MEDS: 0.9% Saline Lock 10 ML Syringe IV (10:22)
[2020-12-24] MEDS: Haloperidol Lactate 5 MG/ML Vial IV (10:22)
--- NOTE | 2020-12-24 11:29 | NURSING ---
Patient was in bed with her gown off, brief off and bowel movement everywhere. Given a bath, new linens placed and new gown. Patient had also pulled out her IV. Took 3 staff to hold pt for this RN to get a new IV placed. Pt given x1 IV Haldol per order for MRI. Taken down to MRI by this RN & MATILDA Soler. Multiple staff present to move pt over to MRI cot. Pt placed in MRI machine by MRI staff. Before any images were taken pt had both arms up over her head and lifted her head up out of the head piece. MRI attempted but unsuccessful again. Pt brought back to ICU. Dr Burks made aware that MRI was unable to be obtained. Discussed EEG concerns that pt will not lie still, states would like tech to try to get EEG d/t seizure history. radiological technician made aware and is on the floor now to attempt EEG.
[2020-12-24] MEDS: 0.9% Normal Saline 1,000 ML 75 ML IV (12:20)
[2020-12-24] MEDS: Potassium Chloride 10mEq/100mL 10 MEQ/100 ML IV.SOLN. 100 MEQ IV BOLUS ×4 (12:21→17:00)
--- NOTE | 2020-12-24 12:22 | CPS ---
RT Uli and this RT attempted EEG. Pt uncooperative and thrashing around in bed. Told pt multiple times to hold still and continued to move side to side in bed. RN and Hospitalist made aware.
[2020-12-24 12:40] LABS: Bedside Glucose 239 mg/dL (70-110)
[2020-12-24] MEDS: Insulin NPH Human 100 UNITS/ML PEN 35 UNITS SC ×2 (12:45→23:18)
[2020-12-24] MEDS: Famotidine 200 MG/20 ML MDV 20 MG in 0.9% Normal Saline (Pres. free 8 ML 300 MG IV ×2 (13:53→20:36)
[2020-12-24] MEDS: Enoxaparin 40 MG/0.4 ML Syringe SC (13:53)
[2020-12-24] MEDS: Lidocaine 5% Patch 1 PATCH TOPICAL (14:00)
--- NOTE | 2020-12-24 14:09 | TELEMED_ITS ---
[facility] has confirmed receipt of a request for visit. This document confirms receipt of the order initiating the consult. To find the results of the consultation, please view the patient's reports for the scanned Telemed Consult.
[2020-12-24 14:58] LABS: Thyroid Stim Hormone (TSH) 0.37 uIU/mL (0.358-3.74)
[2020-12-24] MEDS: Budesonide Respules 0.5 MG/2 ML AMPUL.NEB. INHALATION (18:49)
[2020-12-24 18:51] LABS: Bedside Glucose 225 mg/dL (70-110)
[2020-12-24] MEDS: NYSTATIN 500,000 UNIT/5 ML UDC 500000 UNIT PO (20:39)
[2020-12-24 23:26] LABS: Bedside Glucose 243 mg/dL (70-110)
[2020-12-25] VITALS (13 sets, daily range): BP systolic 151–179; BP diastolic 69–84; PULSE 92–110; RESP 16–29; TEMP 37.5–37.7; O2SAT 96–99
[2020-12-25] MEDS: 0.9% Normal Saline 1,000 ML 75 ML IV ×2 (01:40→13:16)
[2020-12-25 04:44] LABS: Absolute Lymphocyte Count 1.95 X10^3/uL (0.83-4.51); Absolute Neutrophil Count 15.8 X10^3/uL (2.0-7.7); Basophil# 0.14 X10^3/uL; Basophil% 0.7 % (0-1); Differential Indicated SCAN CRITERIA MET; Eosinophil# 0.27 X10^3/uL; Eosinophils% 1.3 % (0-5); Hematocrit 47.7 % (37-47); Hemoglobin 15.9 g/dL (12.0-15.0); Lymphocyte # 1.95 X10^3/ul (0.83-4.51); Lymphocyte % 9.7 % (19-41); Mean Corp Hgb Conc 33.3 g/dL (32-36); Mean Corpuscular Hgb 27.7 pg (27.0-32.0); Mean Corpuscular Volume 83.1 fL (81-99); Mean Platelet Vol. 9.9 fl (6.2-12.0); Monocyte# 1.76 X10^3/uL; Monocyte% 8.8 % (0-10); NRBC Flagged by Analyzer 0 % (0-5); Neutrophil # 15.81 X10^3/uL (2.7-7.7); Neutrophil % 79.1 % (47-70); POSITIVE DIFFERENTIAL YES; Platelet Count 300 K/mm3 (150-450); RBC Distribution Width CV 14.4 % (11.6-14.6); Red Blood Count 5.74 M/mm3 (4.2-5.4)
[2020-12-25 05:00] LABS: ALB/GLOB Ratio 0.7 RATIO (0.9-2.4); AST(SGOT) 28 U/L (15-37); Alanine Aminotransfer ALT/SGPT 26 U/L (13-56); Albumin, Serum 2.8 g/dL (3.2-5.0); Alkaline Phosphatase 136 U/L (45-117); Anion Gap 8 (5-15); BUN 8 mg/dL (7-18); BUN/Creat Ratio 10.8 RATIO (10-20); Calcium,Total 8.6 mg/dL (8.5-10.1); Chloride 108 mmol/L (98-107); Creatinine, Serum 0.74 mg/dL (0.55-1.02); EST Glomerular Filtration Rate 84 mL/min (>60); Est Glom Filt Rate - Afr Amer 101 mL/min (>60); Estimated Creatinine Clearance 51.81 ml/min; Globulin 4.2 g/dL (2.2-4.2); Glucose 192 mg/dL (74-106); Potassium 3.2 mmol/L (3.5-5.1); Sodium Level 136 mmol/L (136-145)
[2020-12-25] MEDS: Insulin Lispro 100 UNIT/ML INSULN.PEN SC ×4 (05:49→23:29)
[2020-12-25 05:56] LABS: Bedside Glucose 184 mg/dL (70-110)
[2020-12-25] MEDS: Nystatin Powder 15gm Bottle 1 APPLIC TOPICAL ×3 (06:02→20:19)
--- NOTE | 2020-12-25 06:04 | PCM.PN.INT ---
Subjective Subjective: The patient was seen and examined at the bedside this morning. Events from the last 24 hours have been reviewed. The patient currently has a low-grade fever with a T-max overnight 99.8 ?F. She is otherwise hemodynamically stable and maintaining appropriate oxygen saturations on room air. An attempt was once again made to obtain an MRI and EEG yesterday, which was again unsuccessful. The patient is currently documented to be overall net +3.5 L for the hospital admission. Potassium is again low this morning at 3.2. Objective Data Objective Data The patient's most recent lab work, culture data and imaging studies have all been personally reviewed. Infectious work-up has been unrevealing to date. Vital Signs: Vital Signs Temp Pulse Resp BP Pulse Ox 99.7 F H 102 H 16 157/72 H 97 12/25/20 03:00 12/25/20 03:00 12/25/20 03:00 12/25/20 03:00 12/25/20 03:00 Oxygen Flow Rate (L/min) 2 Oxygen Delivery Method Room Air Weight: 298 lb 1.039 oz Body Mass Index (BMI) 48.2 Finger Stick Blood Glucose 517 Intake & Output: Intake and Output for Last 24 Hours 12/23/20 12/24/20 12/25/20 23:59 23:59 23:59 Intake Total 3846.58 / 3846.58 2375.25 / 2375.25 1000 / 1000 Output Total 1205 / 1955 5 / 2024 450 / 450 Balance 2641.58 / 1891.58 350.25 / 350.25 550 / 550 Lab / Micro Data Attestation: I reviewed the patient's lab results. Result Diagrams: 12/25/20 04:40 12/25/20 04:40 Labs: Laboratory Results - last 24 hr 12/24/20 12/24/20 12/24/20 04:40 06:13 12:31 WBC RBC Hgb Hct MCV MCH MCHC RDW Std Deviation RDW Coeff of Be Plt Count MPV Immature Gran % (Auto) Neut % (Auto) Lymph % (Auto) [place] % (Auto) Eos % (Auto) Baso % (Auto) Absolute Neuts (auto) Absolute Lymphs (auto) Nucleated RBC % Diff Path Review Sodium Potassium Chloride Carbon Dioxide Anion Gap BUN Creatinine Estim Creat Clear Calc Est GFR (MDRD) Af Amer Est GFR (MDRD) Non-Af BUN/Creatinine Ratio Glucose Calcium Total Bilirubin AST ALT Alkaline Phosphatase Ammonia Total Protein Albumin Globulin Albumin/Globulin Ratio TSH 0.37 POC Glucose 202 H 239 H 12/24/20 12/24/20 12/24/20 16:29 18:46 23:15 WBC RBC Hgb Hct MCV MCH MCHC RDW Std Deviation RDW Coeff of Be Plt Count MPV Immature Gran % (Auto) Neut % (Auto) Lymph % (Auto) [place] % (Auto) Eos % (Auto) Baso % (Auto) Absolute Neuts (auto) Absolute Lymphs (auto) Nucleated RBC % Diff Path Review Sodium Potassium Chloride Carbon Dioxide Anion Gap BUN Creatinine Estim Creat Clear Calc Est GFR (MDRD) Af Amer Est GFR (MDRD) Non-Af BUN/Creatinine Ratio Glucose Calcium Total Bilirubin AST ALT Alkaline Phosphatase Ammonia 20.0 Total Protein Albumin Globulin Albumin/Globulin Ratio TSH POC Glucose 225 H 243 H 12/25/20 12/25/20 12/25/20 04:40 04:40 05:46 WBC 20.0 H RBC 5.74 H Hgb 15.9 H Hct 47.7 H MCV 83.1 MCH 27.7 MCHC 33.3 RDW Std Deviation 43.0 RDW Coeff of Be 14.4 Plt Count 300 MPV 9.9 Immature Gran % (Auto) 0.400 Neut % (Auto) 79.1 H Lymph % (Auto) 9.7 L [place] % (Auto) 8.8 Eos % (Auto) 1.3 Baso % (Auto) 0.7 Absolute Neuts (auto) 15.8 H Absolute Lymphs (auto) 1.95 Nucleated RBC % 0 Diff Path Review May foll Sodium 136 Potassium 3.2 L Chloride 108 H Carbon Dioxide 20.0 L Anion Gap 8 BUN 8 Creatinine 0.74 Estim Creat Clear Calc 51.81 Est GFR (MDRD) Af Amer 101 Est GFR (MDRD) Non-Af 84 BUN/Creatinine Ratio 10.8 Glucose 192 H Calcium 8.6 Total Bilirubin 1.60 H AST 28 ALT 26 Alkaline Phosphatase 136 H Ammonia Total Protein 7.0 Albumin 2.8 L Globulin 4.2 Albumin/Globulin Ratio 0.7 L TSH POC Glucose 184 H Micro: Microbiology 12/24/20 15:50 Urine Catheter - Robb Legionella Antigen - Final 12/24/20 15:50 Urine Catheter - Robb Streptococcus pneumoniae Antigen (M - Final 12/23/20 07:50 Stool Enteric Bacteriology - Final 12/23/20 07:50 Stool Stool Lactoferrin - Final 12/23/20 04:45 Mucosa - Nasopharyngeal Respiratory Panel (PCR) - Final 12/23/20 01:30 Urine Catheter - Catheter Legionella Antigen - Final 12/23/20 01:30 Urine Catheter - Catheter Streptococcus pneumoniae Antigen (M - Final 12/23/20 01:20 Stool C. difficile DNA Amplification - Final 12/23/20 02:50 Nasal Secretion SARS-CoV-2 Antigen (Rapid) - Final Physical Exam Const alert Constitutional Narrative: Mumbling unintelligibly. Less restless than yesterday. Somnolent. HEENT normocephalic, head/scalp atraumatic and moist oral mucous membranes Eyes EOMs intact bilaterally and conjunctivae normal Resp Auscultation: diminished lung sounds; Negative for rales, rhonchi or wheezes Cardio S1 normal heart sound and S2 normal heart sound Rate: tachycardic GI normal to inspection, nondistended, normoactive bowel sounds Extremity no clubbing, cyanosis or edema Skin no rashes or lesions noted Neuro moves all extremities and no focal motor deficits Sensorium / Orientation: confused and somnolent Psych Speech: incoherent Mood & Affect: flat affect Attention / Concentration: attention grossly impaired and concentration grossly impaired Assessment & Plan Assessment/Plan (1) Acute encephalopathy: (2) Severe sepsis: PLAN: RECOMMENDATIONS: 1. Continue to hold all sedating medications. 2. Continue empiric antimicrobials, pending infectious work-up. 3. Gentle IV fluid hydration while n.p.o. 4. Additional potassium repletion 5. Continue aerosol treatments. 6. Obtain neurology consultation. May need to consider additional attempt at MRI and EEG. IMPRESSIONS: 1. Severe sepsis Although no definitive source of infection has yet to declare itself, there is some concern for an underlying pulmonary infectious etiology. In addition, the patient has had diarrhea so an enteric pathogen is also a possibility. C. difficile has been ruled out. The patient remains hemodynamically stable. We will plan to continue broad-spectrum antimicrobials for now, pending culture data. 2. Encephalopathy Likely multifactorial in etiology. Concern for underlying metabolic encephalopathy. However, polypharmacy is also a consideration, as the patient was positive for opiates on her toxicology screen and she also appears to be prescribed Lyrica and Requip as an outpatient. Recommend continuing to hold sedating medications for now. Given overall lack of improvement, tentative plans for neurology consultation. Attempts to obtain EEG and MRI have been unsuccessful due to patient agitation. Will await additional neurology input. May need to consider LP as well. 3. Hypokalemia Additional electrolyte repletion as ordered. Recheck levels in the morning. 4. History of rheumatoid arthritis/hypothyroidism/diabetes mellitus/chronic pain syndrome/obesity Complicates care, management, recovery and prognosis. Continue basal and sliding scale insulin coverage. Avoid sedating medications. This note was generated with [employer] dictation software. It may contain incorrect words, spelling, and punctuation that were not noted in checking the note before signing. Visit Charges Inpatient E&M: 50695 Subs Hosp L2
--- NOTE | 2020-12-25 06:14 | PCM.PN.HOSP ---
Subjective Subjective: Patient overnight more calm than evenings prior but still despite sedation have been unable to obtain MRI brain or EEG. Patient upon evaluation will say good morning and follow some commands, deny any acute complaints but then returns following immediately to laying on her right side, muttering got it repeatedly. Patient overnight has had low grade T. Patient without obvious evidence of chills, nausea, emesis, abdominal pain, chest pain or dyspnea. Objective Data Objective Data Vital Signs: Vital Signs Temp Pulse Resp BP Pulse Ox 99.7 F H 102 H 16 157/72 H 97 12/25/20 03:00 12/25/20 03:00 12/25/20 03:00 12/25/20 03:00 12/25/20 03:00 Oxygen Flow Rate (L/min) 2 Oxygen Delivery Method Room Air Weight: 298 lb 1.039 oz Body Mass Index (BMI) 48.2 Finger Stick Blood Glucose 517 Intake & Output: Intake and Output for Last 24 Hours 12/23/20 12/24/20 12/25/20 23:59 23:59 23:59 Intake Total 3846.58 / 3846.58 2375.25 / 2375.25 1000 / 1000 Output Total 1205 / 1955 2025 / 2025 450 / 450 Balance 2641.58 / 1891.58 350.25 / 350.25 550 / 550 Lab / Micro Data Result Diagrams: 12/25/20 04:40 12/25/20 04:40 Labs: Laboratory Results - last 24 hr 12/24/20 12/24/20 12/24/20 04:40 06:13 12:31 WBC RBC Hgb Hct MCV MCH MCHC RDW Std Deviation RDW Coeff of Be Plt Count MPV Immature Gran % (Auto) Neut % (Auto) Lymph % (Auto) [place] % (Auto) Eos % (Auto) Baso % (Auto) Absolute Neuts (auto) Absolute Lymphs (auto) Nucleated RBC % Diff Path Review Sodium Potassium Chloride Carbon Dioxide Anion Gap BUN Creatinine Estim Creat Clear Calc Est GFR (MDRD) Af Amer Est GFR (MDRD) Non-Af BUN/Creatinine Ratio Glucose Calcium Total Bilirubin AST ALT Alkaline Phosphatase Ammonia Total Protein Albumin Globulin Albumin/Globulin Ratio TSH 0.37 POC Glucose 202 H 239 H 12/24/20 12/24/20 12/24/20 16:29 18:46 23:15 WBC RBC Hgb Hct MCV MCH MCHC RDW Std Deviation RDW Coeff of Be Plt Count MPV Immature Gran % (Auto) Neut % (Auto) Lymph % (Auto) [place] % (Auto) Eos % (Auto) Baso % (Auto) Absolute Neuts (auto) Absolute Lymphs (auto) Nucleated RBC % Diff Path Review Sodium Potassium Chloride Carbon Dioxide Anion Gap BUN Creatinine Estim Creat Clear Calc Est GFR (MDRD) Af Amer Est GFR (MDRD) Non-Af BUN/Creatinine Ratio Glucose Calcium Total Bilirubin AST ALT Alkaline Phosphatase Ammonia 20.0 Total Protein Albumin Globulin Albumin/Globulin Ratio TSH POC Glucose 225 H 243 H 12/25/20 12/25/20 12/25/20 04:40 04:40 05:46 WBC 20.0 H RBC 5.74 H Hgb 15.9 H Hct 47.7 H MCV 83.1 MCH 27.7 MCHC 33.3 RDW Std Deviation 43.0 RDW Coeff of Be 14.4 Plt Count 300 MPV 9.9 Immature Gran % (Auto) 0.400 Neut % (Auto) 79.1 H Lymph % (Auto) 9.7 L [place] % (Auto) 8.8 Eos % (Auto) 1.3 Baso % (Auto) 0.7 Absolute Neuts (auto) 15.8 H Absolute Lymphs (auto) 1.95 Nucleated RBC % 0 Diff Path Review May foll Sodium 136 Potassium 3.2 L Chloride 108 H Carbon Dioxide 20.0 L Anion Gap 8 BUN 8 Creatinine 0.74 Estim Creat Clear Calc 51.81 Est GFR (MDRD) Af Amer 101 Est GFR (MDRD) Non-Af 84 BUN/Creatinine Ratio 10.8 Glucose 192 H Calcium 8.6 Total Bilirubin 1.60 H AST 28 ALT 26 Alkaline Phosphatase 136 H Ammonia Total Protein 7.0 Albumin 2.8 L Globulin 4.2 Albumin/Globulin Ratio 0.7 L TSH POC Glucose 184 H Micro: Microbiology 12/24/20 15:50 Urine Catheter - Robb Legionella Antigen - Final 12/24/20 15:50 Urine Catheter - Robb Streptococcus pneumoniae Antigen (M - Final 12/23/20 07:50 Stool Enteric Bacteriology - Final 12/23/20 07:50 Stool Stool Lactoferrin - Final 12/23/20 04:45 Mucosa - Nasopharyngeal Respiratory Panel (PCR) - Final 12/23/20 01:30 Urine Catheter - Catheter Legionella Antigen - Final 12/23/20 01:30 Urine Catheter - Catheter Streptococcus pneumoniae Antigen (M - Final 12/23/20 01:20 Stool C. difficile DNA Amplification - Final 12/23/20 02:50 Nasal Secretion SARS-CoV-2 Antigen (Rapid) - Final Physical Exam Narrative Physical Examination: General: awake, alert, answers initial questions as prior, can speak and stop muttering, but following returns immediately to repeating got it. Less agitated than day prior. Skin: normal color, turgor, no icterus, cyanosis except noted mild skin dermatitis especially to the posterior thorax. HEENT: AT/NC, EOMI, PERRLA, moderately dry MM, evidence of oral thrush. Lungs: Mildly diminished at bases, difficult exam, no obvious rales, ronchi or wheezing. Heart: Mildly tachycardic with regular rhythm; no gallop, rub audible. Abdomen: soft, morbidly obese, NTTP, difficult to assess distention given morbidly obese habitus, distant normalized BS. Extremities: no cyanosis, clubbing, or edema. Neurological: awake, alert, answers initial questions as prior, can speak and stop muttering, but following returns immediately to repeating got it, cognitive function not baseline intact; pupils equally reactive to light and accomodation; cranial nerves difficult to assess given current status but appear grossly normal, moving all 4 extremities, no focal deficits, strength difficult to assess as not following commands. Psychiatric: affect appears intermittently agitated, but less than day prior, no acute evidence of depressive or anxiety feelings. Assessment & Plan Assessment/Plan (1) Acute encephalopathy: PLAN: The patient is a 65 y/o F w/ PMHx: Fe deficiency anemia, Seizure disorder, PAF, HTN, HLD, Morbid obesity, Migraines, RLS, Diabetes mellitus type II with gastroparesis w/ History of cyclical N/V, Diastolic CHF, Hx Takotsubo's Cardiomyopathy, History of PE, ? Hx CVA, Rheumatoid arthritis, Chronic pain syndrome who presents to the [facility] ED on 12/23/20 with history of increased confusion and onset of loose stools. 1. Acute Encephalopathy, multifactorial, Secondary to Acute SIRS w/ Lactic Acidosis, Unclear Etiology with Diarrhea as well as #2, possible #3: Admission CBC with WBC 24.7, hemoglobin 15.7, platelet 327 with notable left shift, ABG with pH 7.45, PCO2 27.7, PO2 75 on room air, CMP with sodium 132, chloride 93, anion gap 17, BUN/creatinine 19/1.33, glucose 479, initial lactic acid 2.7 with repeat 1.8, total bilirubin 2.0, AST/ALT 15/20, alk phos 162, troponin 0.018, urinalysis with specific gravity 1.020, protein 100, glucose 1000, ketones 150, occult blood 150, negative nitrite, 10-25 urine RBC, 0 urine WBCs, 0 urine bacteria, UDS with positive opiates, ethyl alcohol 5, acetone small, chest x-ray with no acute cardiopulmonary findings, CT of the brain with no acute intracranial findings, CT abdomen pelvis with noted loop of thick-walled appearing small bowel containing a small fatty mass likely lipoma, findings suspicious for enteritis and similar to prior study February 2018 with associated mild tortuosity, and air-fluid level within the cecum which is nonspecific, diverticulosis with no evidence of diverticulitis, bilateral renal atrophy with no hydronephrosis and thoracolumbar spinal stable L1 hemangioma and degenerative changes. Patient admitted and maintained in the ICU, maintained on fall and aspiration precautions, maintained on broad-spectrum antibiotic therapy currently with cefepime and vancomycin however MRSA screen negative thus discontinued 12/23/20, but WBC 12/25/20 with again mildly increased WBC 20 with shift still therefore will add back pending ID evaluation concurrently. Still no obvious source w/ C. difficile negative, enteric stool pathogen negative, awaiting O+P, already has had correction of DKA, unclear possible seizure disorder contributing with IV keppra ongoing, negative urine antigens, negative respiratory panel, negative COVID rapid antigen, Bld Cx x 2 without growth, UA not marked for UTI, CT A/P without acute findings, CT head unremarkable, CXR unremarkable. Neurology consulted w/ evaluation 12/25/20, felt likely metabolic encephalopathy, less suspicion for meningitis or neurological etiology. Agreed, if able to, obtain MRI, EEG, agreed w/ Keppra but unclear history. May need to consider LP if not improved in the next 48 hours. Will request Saturday ID evaluation. 2. Acute DKA, Noted upon admission, Now resolved w/ Diabetes mellitus type II with gastroparesis: Initial ED presentation with hyperglycemia, mildly elevated anion gap, UDS with positive ketones and positive acetone level all consistent with DKA however this has since resolved, will continue to juices hydration, will allow ADA diet once mental status improved as noted #1, accu checks w/ ISS, HgbA1c 8.9% from prior 10/28/20 6.5%, nutrition consultation for education and teaching. 3. Seizure disorder with ? Questionable Breakthrough seizure: Patient with underlying seizure disorder history, on pregabalin and from past review had been on lamotrigine regimen, while NPO transitioning to IV keppra 500 mg BID, severe failed attempts to obtain MRI brain and EEG, Neurology consulted and following as noted. 4. Rheumatoid arthritis: Hold oral Plaquenil regimen. 5. Chronic pain syndrome, neuropathy, fibromyalgia: Holding oral narcotic regimen. 6. Anxiety and depression/questionable bipolar disorder: Holding Cymbalta regimen, continue PRN IM haldol. 7. Diastolic CHF, Hx Takotsubo's Cardiomyopathy: Holding home asa, statin, BB, lasix. Not on MARGARETH/ARB which she had been prior. 8. Hypertension: Holding Coreg, lasix, maintain in interim PRN hydralazine. 9. Gout: Hold home allopurinol regimen. 10. Hyperlipidemia: Hold home statin regimen. 11. Hypothyroidism: Hold home synthroid regimen. TSH 0.82, free T4 1.49 11/30/2020. If prolonged may transition to 1/2 IV dosing daily. 12. RLS: Holding home Requip regimen. 13. Iron deficiency anemia: Admission hemoglobin 13.4, repeat 12/25/20 Hgb 15.9, continue to trend. 14. DVT prophylaxis: SCDs, Lovenox. Visit Charges Inpatient E&M: 34294 Subs Hosp L3
[2020-12-25] MEDS: Potassium Chloride 10mEq/100mL 10 MEQ/100 ML IV.SOLN. 100 MEQ IV BOLUS ×4 (07:06→11:34)
[2020-12-25] MEDS: Budesonide Respules 0.5 MG/2 ML AMPUL.NEB. INHALATION ×2 (07:27→19:08)
[2020-12-25] MEDS: Famotidine 200 MG/20 ML MDV 20 MG in 0.9% Normal Saline (Pres. free 8 ML 300 MG IV ×2 (09:53→21:27)
[2020-12-25] MEDS: Enoxaparin 40 MG/0.4 ML Syringe SC (09:53)
[2020-12-25] MEDS: Lidocaine 5% Patch 1 PATCH TOPICAL (09:53)
[2020-12-25 11:15] LABS: Bedside Glucose 177 mg/dL (70-110)
[2020-12-25] MEDS: Insulin NPH Human 100 UNITS/ML PEN 35 UNITS SC ×2 (11:25→23:30)
--- NOTE | 2020-12-25 13:48 | PCM.RX.CS ---
Consult Pharmacy has been consulted to manage selected antiobiotic: Vancomycin Type of Consult: Follow-up - REORDERED AFTER WAS D/C'D YESTERDAY Prior Doses of Antibiotics Received/Current Regimen: the patient had been on 1500mg IV q12h before it was D/C'd yesterday. A trough had not been drawn yet. Labs: Sodium 136 mmol/L (136-145) 12/25/20 04:40 Potassium 3.2 mmol/L (3.5-5.1) L 12/25/20 04:40 Chloride 108 mmol/L (98-107) H 12/25/20 04:40 Carbon Dioxide 20.0 mmol/L (21.0-32.0) L 12/25/20 04:40 Anion Gap 8 (5-15) 12/25/20 04:40 BUN 8 mg/dL (7-18) 12/25/20 04:40 Creatinine 0.74 mg/dL (0.55-1.02) 12/25/20 04:40 Est GFR (MDRD) Af Amer 101 mL/min (>60) 12/25/20 04:40 Est GFR (MDRD) Non-Af 84 mL/min (>60) 12/25/20 04:40 BUN/Creatinine Ratio 10.8 RATIO (10-20) 12/25/20 04:40 Glucose 192 mg/dL (74-106) H 12/25/20 04:40 Microbiology: Microbiology 12/23/20 01:35 Blood Culture (Wb) - Right Hand Blood Culture - Preliminary No growth in 48 hours. 12/23/20 01:20 Blood Culture (Wb) - Anticubital Right Blood Culture - Preliminary No growth in 48 hours. 12/24/20 15:50 Urine Catheter - Robb Legionella Antigen - Final 12/24/20 15:50 Urine Catheter - Robb Streptococcus pneumoniae Antigen (M - Final 12/23/20 07:50 Stool Enteric Bacteriology - Final 12/23/20 07:50 Stool Stool Lactoferrin - Final 12/23/20 04:45 Mucosa - Nasopharyngeal Respiratory Panel (PCR) - Final 12/23/20 01:30 Urine Catheter - Catheter Legionella Antigen - Final 12/23/20 01:30 Urine Catheter - Catheter Streptococcus pneumoniae Antigen (M - Final 12/23/20 01:20 Stool C. difficile DNA Amplification - Final 12/23/20 02:50 Nasal Secretion SARS-CoV-2 Antigen (Rapid) - Final Weight used for dosin.2 kg Estimated Creatinine Clearance: 98ml/min Goal Trough: 15-20 mcg/mL Pharmacy Plan for Drug Dosing: The patient has been off vancomycin approximately 32 hours after it was D/C'd yesterday so will reload with 2000mg IV x1, then continue at 1750mg IV q12h. This is a little higher dose than previously since the patient's SCr/CrCl has improved. The patient's CrCl of 98ml/min was calculated using an adjusted body weight of 89.7kg. Will order a trough level to be drawn before tomorrow afternoon's dose, one dose earlier than a new start, to make sure the trough is not too high already. Pharmacy Service will continue to monitor and adjust dosing as required. Follow-Up Labs: Trough Vancomycin Labs to be done on [date and time ordered]: 12/26/20 12:30
[2020-12-25 17:31] LABS: Bedside Glucose 161 mg/dL (70-110)
[2020-12-25] MEDS: NYSTATIN 500,000 UNIT/5 ML UDC 500000 UNIT PO (20:20)
[2020-12-25 23:51] LABS: Bedside Glucose 150 mg/dL (70-110)
[2020-12-26] VITALS (20 sets, daily range): BP systolic 148–202; BP diastolic 54–87; PULSE 85–115; RESP 20–36; TEMP 37.4–38.2; O2SAT 92–97
[2020-12-26 04:24] LABS: Absolute Lymphocyte Count 1.68 X10^3/uL (0.83-4.51); Absolute Neutrophil Count 15.6 X10^3/uL (2.0-7.7); Basophil# 0.12 X10^3/uL; Basophil% 0.6 % (0-1); Eosinophil# 0.27 X10^3/uL; Eosinophils% 1.4 % (0-5); Hematocrit 45.2 % (37-47); Hemoglobin 14.9 g/dL (12.0-15.0); Lymphocyte # 1.68 X10^3/ul (0.83-4.51); Lymphocyte % 8.5 % (19-41); Monocyte# 1.93 X10^3/uL; Monocyte% 9.8 % (0-10); NRBC Flagged by Analyzer 0 % (0-5); Neutrophil # 15.59 X10^3/uL (2.7-7.7); POSITIVE DIFFERENTIAL YES; Platelet Count 297 K/mm3 (150-450); RBC Distribution Width CV 14.5 % (11.6-14.6); RBC Distribution Width SD 42.8 fl (35.1-43.9); Red Blood Count 5.51 M/mm3 (4.2-5.4); White Blood Count 19.7 K/mm3 (4.4-11.0)
[2020-12-26 04:25] LABS: Differential Indicated SCAN CRITERIA MET
[2020-12-26 04:40] LABS: ALB/GLOB Ratio 0.6 RATIO (0.9-2.4); AST(SGOT) 17 U/L (15-37); Alanine Aminotransfer ALT/SGPT 21 U/L (13-56); Albumin, Serum 2.5 g/dL (3.2-5.0); Alkaline Phosphatase 114 U/L (45-117); Anion Gap 10 (5-15); BUN 8 mg/dL (7-18); BUN/Creat Ratio 11.1 RATIO (10-20); Calcium,Total 8.3 mg/dL (8.5-10.1); Chloride 110 mmol/L (98-107); Creatinine, Serum 0.72 mg/dL (0.55-1.02); EST Glomerular Filtration Rate 86 mL/min (>60); Est Glom Filt Rate - Afr Amer 105 mL/min (>60); Estimated Creatinine Clearance 51.81 ml/min; Globulin 4.1 g/dL (2.2-4.2); Glucose 115 mg/dL (74-106); Potassium 2.9 mmol/L (3.5-5.1); Protein, Total 6.6 g/dL (6.4-8.2); Sodium Level 141 mmol/L (136-145)
[2020-12-26] MEDS: 0.9% Normal Saline 1,000 ML 75 ML IV (05:56)
[2020-12-26] MEDS: Nystatin Powder 15gm Bottle 1 APPLIC TOPICAL ×2 (06:17→14:45)
[2020-12-26 06:26] LABS: Bedside Glucose 121 mg/dL (70-110)
[2020-12-26 06:44] LABS: Magnesium 1.6 mg/dL (1.6-2.6); Phosphorus 1.5 mg/dL (2.5-4.9)
[2020-12-26] MEDS: Budesonide Respules 0.5 MG/2 ML AMPUL.NEB. INHALATION ×2 (07:14→19:20)
[2020-12-26] MEDS: fentaNYL 100 MCG/2 ML Ampul 50 MCG IV (07:15)
[2020-12-26] MEDS: Potassium Chloride 10mEq/100mL 10 MEQ/100 ML IV.SOLN. 100 MEQ IV BOLUS ×4 (07:16→11:02)
[2020-12-26] MEDS: 0.9% Saline Lock 10 ML Syringe IV (07:16)
[2020-12-26 07:25] LABS: Blood Gas Specimen Type VEN; O2 Delivery Device Room Air; SITE L Radial; VBG BASE EXCESS -4 mmol/L (-1.0-3.5); VBG Bicarbonate 20 mmol/L (22-26); VBG PO2 48 mmHg (25-40); VBG SO2 86 % (50-70); VBG TCO2 21 mmol/L (23-33); VBG pH 7.46 (7.32-7.42)
--- NOTE | 2020-12-26 07:27 | PCM.PN.INT ---
Subjective Subjective: Patient did okay overnight from a nursing perspective. Patient is not hollering out as much, but does continue to have lip smacking. No fever was noted overnight, but this morning, patient became hypertensive and tachycardic. Patient is on chronic [place] and Haldol as needed at home. Patient has not received pain medications. Patient is not following commands at this time. Objective Data Objective Data Patient with lip smacking this morning, but not crying out. Patient resting comfortably on her back, which is reportedly different from baseline thus far in the hospitalization. Patient did have a neurology consult yesterday and infectious disease was recommended. Vital Signs: Vital Signs Temp Pulse Resp BP Pulse Ox 37.8 C H 107 H 36 H 192/80 H 96 12/26/20 07:00 12/26/20 07:00 12/26/20 07:00 12/26/20 07:00 12/26/20 07:00 Oxygen Flow Rate (L/min) 2 Oxygen Delivery Method Room Air Weight: 136.7 kg Body Mass Index (BMI) 48.2 Finger Stick Blood Glucose 517 Intake & Output: Intake and Output for Last 24 Hours 12/24/20 12/25/20 12/26/20 23:59 23:59 23:59 Intake Total 2375.25 / 2375.25 3341.25 / 3341.25 1632.5 / 1632.5 Output Total 2024 / 2024 850 / 850 160 / 160 Balance 350.25 / 350.25 2491.25 / 2491.25 1472.5 / 1472.5 Lab / Micro Data Result Diagrams: 12/26/20 04:15 12/26/20 04:15 Labs: Laboratory Results - last 24 hr 12/25/20 12/25/20 12/25/20 11:05 17:25 23:28 WBC RBC Hgb Hct MCV MCH MCHC RDW Std Deviation RDW Coeff of Be Plt Count MPV Immature Gran % (Auto) Neut % (Auto) Lymph % (Auto) [place] % (Auto) Eos % (Auto) Baso % (Auto) Absolute Neuts (auto) Absolute Lymphs (auto) Nucleated RBC % Diff Path Review Sodium Potassium Chloride Carbon Dioxide Anion Gap BUN Creatinine Estim Creat Clear Calc Est GFR (MDRD) Af Amer Est GFR (MDRD) Non-Af BUN/Creatinine Ratio Glucose Calcium Phosphorus Magnesium Total Bilirubin AST ALT Alkaline Phosphatase Total Protein Albumin Globulin Albumin/Globulin Ratio POC Glucose 177 H 161 H 150 H 12/26/20 12/26/20 12/26/20 04:15 04:15 04:15 WBC 19.7 H RBC 5.51 H Hgb 14.9 Hct 45.2 MCV 82.0 MCH 27.0 MCHC 33.0 RDW Std Deviation 42.8 RDW Coeff of Be 14.5 Plt Count 297 MPV 10.0 Immature Gran % (Auto) 0.700 Neut % (Auto) 79.0 H Lymph % (Auto) 8.5 L [place] % (Auto) 9.8 Eos % (Auto) 1.4 Baso % (Auto) 0.6 Absolute Neuts (auto) 15.6 H Absolute Lymphs (auto) 1.68 Nucleated RBC % 0 Diff Path Review May foll Sodium 141 Potassium 2.9 L Chloride 110 H Carbon Dioxide 21.0 Anion Gap 10 BUN 8 Creatinine 0.72 Estim Creat Clear Calc 51.81 Est GFR (MDRD) Af Amer 105 Est GFR (MDRD) Non-Af 86 BUN/Creatinine Ratio 11.1 Glucose 115 H Calcium 8.3 L Phosphorus 1.5 L Magnesium 1.6 Total Bilirubin 1.70 H AST 17 ALT 21 Alkaline Phosphatase 114 Total Protein 6.6 Albumin 2.5 L Globulin 4.1 Albumin/Globulin Ratio 0.6 L POC Glucose 12/26/20 06:16 WBC RBC Hgb Hct MCV MCH MCHC RDW Std Deviation RDW Coeff of Be Plt Count MPV Immature Gran % (Auto) Neut % (Auto) Lymph % (Auto) [place] % (Auto) Eos % (Auto) Baso % (Auto) Absolute Neuts (auto) Absolute Lymphs (auto) Nucleated RBC % Diff Path Review Sodium Potassium Chloride Carbon Dioxide Anion Gap BUN Creatinine Estim Creat Clear Calc Est GFR (MDRD) Af Amer Est GFR (MDRD) Non-Af BUN/Creatinine Ratio Glucose Calcium Phosphorus Magnesium Total Bilirubin AST ALT Alkaline Phosphatase Total Protein Albumin Globulin Albumin/Globulin Ratio POC Glucose 121 H Micro: Microbiology 12/23/20 01:35 Blood Culture (Wb) - Right Hand Blood Culture - Preliminary No growth in 48 hours. 12/23/20 01:20 Blood Culture (Wb) - Anticubital Right Blood Culture - Preliminary No growth in 48 hours. 12/24/20 15:50 Urine Catheter - Robb Legionella Antigen - Final 12/24/20 15:50 Urine Catheter - Robb Streptococcus pneumoniae Antigen (M - Final 12/23/20 07:50 Stool Enteric Bacteriology - Final 12/23/20 07:50 Stool Stool Lactoferrin - Final 12/23/20 04:45 Mucosa - Nasopharyngeal Respiratory Panel (PCR) - Final 12/23/20 01:30 Urine Catheter - Catheter Legionella Antigen - Final 12/23/20 01:30 Urine Catheter - Catheter Streptococcus pneumoniae Antigen (M - Final 12/23/20 01:20 Stool C. difficile DNA Amplification - Final 12/23/20 02:50 Nasal Secretion SARS-CoV-2 Antigen (Rapid) - Final ABG Data ABG results: ABG 12/26/20 07:19 Specimen Type YOLANDA Sample Site L Radial VBG pH 7.46 H VBG pO2 48 H VBG HCO3 20 L VBG Total CO2 21 L VBG O2 Sat (Calc) 86 H VBG Base Excess -4 L POC Mix VBG pCO2 Pt Tmp 29.0 L O2 Delivery Device Room Air Physical Exam Const Constitutional Narrative: Not answering commands. Little vocalization noted today. General Appearance: comfortable and appears older than stated age Orientation / Consciousness: lethargic Nutritional Appearance: morbidly obese HEENT normocephalic, head/scalp atraumatic and moist oral mucous membranes Eyes EOMs intact bilaterally and conjunctivae normal Neck full ROM, no lymphadenopathy, supple and no meningeal signs General: normal visual inspection Chest inspection of chest normal Resp Auscultation: diminished lung sounds; Negative for rales, rhonchi or wheezes Cardio S1 normal heart sound and S2 normal heart sound Rate: tachycardic GI normal to inspection, nondistended, normoactive bowel sounds Extremity no clubbing, cyanosis or edema Skin no rashes or lesions noted Neuro moves all extremities and no focal motor deficits Sensorium / Orientation: confused and somnolent Psych Speech: incoherent Mood & Affect: flat affect Attention / Concentration: attention grossly impaired and concentration grossly impaired Assessment & Plan Assessment/Plan (1) Acute encephalopathy: (2) Severe sepsis: PLAN: RECOMMENDATIONS: 1. Continue to hold all sedating medications. 2. Continue empiric antimicrobials, pending infectious work-up. 3. Gentle IV fluid hydration while n.p.o. 4. Electrolyte repletion as indicated 5. Continue aerosol treatments. 6. Obtain ABG 7. Trial of fentanyl 8. Possibly add labetalol IV for hypertension IMPRESSIONS: 1. Severe sepsis Although no definitive source of infection has yet to declare itself, there is some concern for an underlying pulmonary infectious etiology. In addition, the patient has had diarrhea so an enteric pathogen is also a possibility. C. difficile has been ruled out. The patient remains hemodynamically stable. We will plan to continue broad-spectrum antimicrobials for now, pending culture data. Infectious disease was recommended by neurology. Defer to hospitalist. 2. Encephalopathy/tachypnea Likely multifactorial in etiology. Concern for underlying metabolic encephalopathy. However, polypharmacy is also a consideration, as the patient was positive for opiates on her toxicology screen and she also appears to be prescribed Lyrica and Requip as an outpatient. Await infectious disease evaluation. Patient's lip movements appear to be similar to tardive dyskinesia. This was not noted on neurology consult yesterday. ABG is suggestive of physiologic stimulation leading to hyperventilation. No indication for intubation at this time. 3. Hypokalemia/hypophosphatemia Additional electrolyte repletion as ordered. Recheck levels in the morning. 4. History of rheumatoid arthritis/hypothyroidism/diabetes mellitus/chronic pain syndrome/obesity Complicates care, management, recovery and prognosis. Continue basal and sliding scale insulin coverage. Avoid sedating medications. 5. Hypertension/tachycardia Unclear if this is related to a pain response, psychomotor agitation or discontinuation of baseline beta-jenny. Will give a therapeutic trial of fentanyl. If patient does not respond, initiation of baseline beta-jenny may be necessary. This will likely need to be given IV TIME: 32 minutes critical care time spent addressing patient's hypertension, tachypnea, mental status, review of all data and collaboration with care team (6 AM to 7 AM) Addendum Addendum: Called by teleneurology at approximately 12:45 PM when they were unable to reach the hospitalist. EEG is concerning for possible metabolic syndrome versus subclinical status. It is difficult to determine secondary to muscular artifact. Suggested trial of benzodiazepines, which patient has already received. Alternative was to give 1 g of Keppra and increase dosing. Could consider 24-hour EEG versus repeat EEG in the future. Procedures Pulmonary 9xxxx: [id number] Critical care first hour
[2020-12-26 08:35] LABS: Vitamin B12 572 pg/mL (211-911)
--- NOTE | 2020-12-26 09:07 | PCM.PN.HOSP ---
Subjective Subjective: Patient was seen and examined. She is less restless. Overnight, she started to continuously lipsmacking. Stat EEG ordered. She continues to be febrile. Objective Data Objective Data Vital Signs: Vital Signs Temp Pulse Resp BP Pulse Ox 100.7 F H 104 H 33 H 166/74 H 94 12/26/20 08:00 12/26/20 08:00 12/26/20 08:00 12/26/20 08:00 12/26/20 08:00 Oxygen Flow Rate (L/min) 2 Oxygen Delivery Method Room Air Weight: 136.7 kg Body Mass Index (BMI) 48.2 Finger Stick Blood Glucose 517 Intake & Output: Intake and Output for Last 24 Hours 12/24/20 12/25/20 12/26/20 23:59 23:59 23:59 Intake Total 2375.25 / 2375.25 3341.25 / 3341.25 1732.5 / 1732.5 Output Total 2024 / 2024 850 / 850 310 / 310 Balance 350.25 / 350.25 2491.25 / 2491.25 1422.5 / 1422.5 Lab / Micro Data Result Diagrams: 12/26/20 04:15 12/26/20 04:15 Labs: Laboratory Results - last 24 hr 12/24/20 12/25/20 12/25/20 16:29 11:05 17:25 WBC RBC Hgb Hct MCV MCH MCHC RDW Std Deviation RDW Coeff of Be Plt Count MPV Immature Gran % (Auto) Neut % (Auto) Lymph % (Auto) [place] % (Auto) Eos % (Auto) Baso % (Auto) Absolute Neuts (auto) Absolute Lymphs (auto) Nucleated RBC % Diff Path Review Sodium Potassium Chloride Carbon Dioxide Anion Gap BUN Creatinine Estim Creat Clear Calc Est GFR (MDRD) Af Amer Est GFR (MDRD) Non-Af BUN/Creatinine Ratio Glucose Calcium Phosphorus Magnesium Total Bilirubin AST ALT Alkaline Phosphatase Total Protein Albumin Globulin Albumin/Globulin Ratio Vitamin B12 572 POC Glucose 177 H 161 H 12/25/20 12/26/20 12/26/20 23:28 04:15 04:15 WBC 19.7 H RBC 5.51 H Hgb 14.9 Hct 45.2 MCV 82.0 MCH 27.0 MCHC 33.0 RDW Std Deviation 42.8 RDW Coeff of Be 14.5 Plt Count 297 MPV 10.0 Immature Gran % (Auto) 0.700 Neut % (Auto) 79.0 H Lymph % (Auto) 8.5 L [place] % (Auto) 9.8 Eos % (Auto) 1.4 Baso % (Auto) 0.6 Absolute Neuts (auto) 15.6 H Absolute Lymphs (auto) 1.68 Nucleated RBC % 0 [address] Review May foll Sodium 141 Potassium 2.9 L Chloride 110 H Carbon Dioxide 21.0 Anion Gap 10 BUN 8 Creatinine 0.72 Estim Creat Clear Calc 51.81 Est GFR (MDRD) Af Amer 105 Est GFR (MDRD) Non-Af 86 BUN/Creatinine Ratio 11.1 Glucose 115 H Calcium 8.3 L Phosphorus Magnesium Total Bilirubin 1.70 H AST 17 ALT 21 Alkaline Phosphatase 114 Total Protein 6.6 Albumin 2.5 L Globulin 4.1 Albumin/Globulin Ratio 0.6 L Vitamin B12 POC Glucose 150 H 12/26/20 12/26/20 04:15 06:16 WBC RBC Hgb Hct MCV MCH MCHC RDW Std Deviation RDW Coeff of Be Plt Count MPV Immature Gran % (Auto) Neut % (Auto) Lymph % (Auto) [place] % (Auto) Eos % (Auto) Baso % (Auto) Absolute Neuts (auto) Absolute Lymphs (auto) Nucleated RBC % Diff Path Review Sodium Potassium Chloride Carbon Dioxide Anion Gap BUN Creatinine Estim Creat Clear Calc Est GFR (MDRD) Af Amer Est GFR (MDRD) Non-Af BUN/Creatinine Ratio Glucose Calcium Phosphorus 1.5 L Magnesium 1.6 Total Bilirubin AST ALT Alkaline Phosphatase Total Protein Albumin Globulin Albumin/Globulin Ratio Vitamin B12 POC Glucose 121 H Micro: Microbiology 12/23/20 01:35 Blood Culture (Wb) - Right Hand Blood Culture - Preliminary No growth in 48 hours. 12/23/20 01:20 Blood Culture (Wb) - Anticubital Right Blood Culture - Preliminary No growth in 48 hours. 12/24/20 15:50 Urine Catheter - Robb Legionella Antigen - Final 12/24/20 15:50 Urine Catheter - Robb Streptococcus pneumoniae Antigen (M - Final 12/23/20 07:50 Stool Enteric Bacteriology - Final 12/23/20 07:50 Stool Stool Lactoferrin - Final 12/23/20 04:45 Mucosa - Nasopharyngeal Respiratory Panel (PCR) - Final 12/23/20 01:30 Urine Catheter - Catheter Legionella Antigen - Final 12/23/20 01:30 Urine Catheter - Catheter Streptococcus pneumoniae Antigen (M - Final 12/23/20 01:20 Stool C. difficile DNA Amplification - Final 12/23/20 02:50 Nasal Secretion SARS-CoV-2 Antigen (Rapid) - Final ABG Data ABG results: ABG 12/26/20 07:19 Specimen Type YOLANDA Sample Site L Radial VBG pH 7.46 H VBG pO2 48 H VBG HCO3 20 L VBG Total CO2 21 L VBG O2 Sat (Calc) 86 H VBG Base Excess -4 L POC Mix VBG pCO2 Pt Tmp 29.0 L O2 Delivery Device Room Air Physical Exam Narrative Physical Examination: General: Alert, not answering questions, smacking the lips Skin: normal color, turgor, no icterus, cyanosis except noted mild skin dermatitis especially to the posterior thorax. HEENT: AT/NC, EOMI, PERRLA, dry oral mucosa Lungs: Clinically clear to auscultation Heart: Mildly tachycardic with regular rhythm; no gallop, rub audible. Abdomen: soft, morbidly obese, nontender to palpation Extremities: No bilateral pedal edema, right plantar ulcer Neurological: Not responsive to command, lipsmacking Assessment & Plan Assessment/Plan (1) Acute encephalopathy: (2) Severe sepsis: (3) Hypoglycemia associated with type 2 diabetes mellitus: (4) Rheumatoid arthritis: (5) DKA, type 2: (6) Hypokalemia: (7) Hypomagnesemia: PLAN: 1. Acute Encephalopathy, unclear etiology, likely secondary to infectious etiology vs seizure(?status) WBC improved to 19.7 from 24[address] abdomen pelvis concerning for possible enteritis Still being managed in ICU. MRI unable to be done; EEG stat ordered, continue on IV Keppra. SOC consulted -recommended continuing IV antibiotics -, MRI/EEG, LP ID consulted. Continue IV vancomycin and cefepime Will get fluoro-guided LP today 2. Acute DKA, present on admission, resolved 3. Hypokalemia/hypophosphatemia/hypomagnesia, will replace, recheck in a.m. 4. Rest of chronic medical conditions -including type II DM, RA are stable. Visit Charges Inpatient E&M: 57472 Subs Hosp L3
[2020-12-26] MEDS: LORazepam 2 MG/ML Syringe IV (10:20)
[2020-12-26] MEDS: Lidocaine 5% Patch 1 PATCH TOPICAL (10:52)
[2020-12-26] MEDS: NYSTATIN 500,000 UNIT/5 ML UDC 500000 UNIT PO ×3 (10:52→17:22)
[2020-12-26] MEDS: Famotidine 200 MG/20 ML MDV 20 MG in 0.9% Normal Saline (Pres. free 8 ML 300 MG IV (10:53)
--- NOTE | 2020-12-26 10:54 | CASEMGMT ---
LW/POA forms both scanned into summary tab of sandeep, sister Linda Mike is pt's healthcare POA. [place] Brownlee
[2020-12-26 12:22] LABS: International Normalized Ratio 1.3; Partial Thromboplast Time 29.3 Seconds (24.1-36.2); Prothrombin Time (Protime)PT. 15.4 SECONDS (11.7-14.9)
--- NOTE | 2020-12-26 12:45 | RAD_ITS ---
PROCEDURE: Fluoroscopic guided Lumbar Puncture. DATE: 12/26/2020. CLINICAL INDICATION: Acute encephalopathy. PHYSICIAN: Tristan De La Garza M.D. MEDICATIONS: 1% lidocaine administered subcutaneously for local anesthesia. ACCESS SITE: Lower posterior back. NEEDLE: 22-gauge spinal needle. SPECIMEN: Approximately 10 mL clear]CSF fluid. FLUOROSCOPY TIME (if supplied): (0:48) minutes/seconds. COMPLICATIONS: None immediate. The risks, benefits, and alternatives to the procedure were explained to the patient. The specific risks of bleeding, infection, and neurovascular injury were detailed and accepted. Witnessed informed consent was obtained. The patient was placed on the fluoroscopic table in the prone position. The level for needle entry was determined and marked. The overlying skin was cleaned and prepped in the usual sterile fashion. 2% lidocaine was administered subcutaneously for local anesthesia. Under fluoroscopic guidance a 22-gauge spinal needle was advanced. The thecal sac was entered at the L3- L4 vertebral level. The inner stylet was removed. There was spontaneous flow of clear CSF fluid. The patient was placed in a reversed Trendelenburg position. Approximately 10 mL of cerebrospinal fluid was collected using gravity. The specimen was collected and submitted to the laboratory for further evaluation. The needle was withdrawn,. Hemostasis was achieved and a sterile dressing placed. The patient tolerated the procedure well without any immediate complications. The patient was placed supine with head elevated and returned to the floor in stable condition. RAD/Fluoro Guided Lumbar Puncture IMPRESSION: Successful fluoroscopic-guided lumbar puncture. Electronically Signed: Tristan De La Garza MD at 14:34 EDT , Service support ,
[2020-12-26 13:01] LABS: Bedside Glucose 137 mg/dL (70-110)
[2020-12-26] MEDS: levETIRAcetam IV 1,000 MG/100 ML BAG 400 MG IV ×2 (13:07→20:29)
[2020-12-26 13:24] LABS: Pathologist Review Reviewed
--- NOTE | 2020-12-26 13:29 | CASEMGMT ---
According to the [facility] website, the following are in-network tertiary facilities: [facility], [facility], [facility], [facility], [facility], [facility], [facility], and . Nilson MARQUEZ CM
[2020-12-26 13:31] LABS: Pathologist Review Reviewed
--- NOTE | 2020-12-26 13:37 | CYSPIN_PTH ---
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 U#:[id number] AGE/SX: 65/F ROOM: [facility] RE12/23/[address]: Dr. Qian Araiza MD : [id number] BED: 1 DIS: 12/26/2020 SPEC #: [id number] RECD: 12/27/20 08:09 STATUS: JAY REQ #: [id number] JERRY: 12/26/20 13:[address]: Qian Araiza DEPT: CYTOLOGY RECD BY: Amanda Huertas ENTERED: 12/27/20 08:23 SP TYPE: CYSPIN FL OTHR DR: DO Dr. Jacques Rosenberg MD Dr. Robert Leininger, MD Dr. Steven Murray, MD Tissues: Cerebrospinal Fluid Procedures: Pap Stain (control) Special Stain Group II Cytospin Fluid HEADER OPERATION: Not noted PRE-OP DIAGNOSIS: Sepsis TISSUE SUBMITTED: Cerebrospinal fluid DIAGNOSIS CYTOLOGY Cerebrospinal fluid (cytospin): Negative for malignant cells. Bloody specimen. JAMEEL:des 12/27/2020 CYTOLOGY STUDY Slides are reviewed. CYTOLOGY GROSS Received is 3 ml of clear colorless fluid labeled with the patient's name and and designated per the requisition as CSF. Submitted for cytology preparation. / des 12/26/20 TC:5 CPT: 30368
[2020-12-26 14:06] LABS: Cytology, Body Fluid / CSF SEE PATHOLOGY REPORT
[2020-12-26] MEDS: Lidocaine 2% (5ml sdv) 5 ML VIAL.MPF (14:15)
--- NOTE | 2020-12-26 14:15 | NURSING ---
Pt transported to Radiology by ALMA Perez and monitored during Lumbar Puncture under Fluoroscopy. Pt tolerated procedure well. Transported back to ICU by ALMA Perez.
[2020-12-26 14:19] LABS: Glucose Spinal Fluid 69 mg/dL (40-75)
--- NOTE | 2020-12-26 14:23 | NURSING ---
Prior to lumbar puncture procedure lidocaine patch removed from pt's back and folded upon itself and disposed of in pharmaceutical waste. Pt's nurse, keny Sanchez.
[2020-12-26 14:29] LABS: Appearance CSF (character) CLEAR (Clear); Body Fluid QC Type(s) BF1Q; CSF Color COLORLESS (Colorless); Tested Tube # 3
--- NOTE | 2020-12-26 14:31 | PCM.CONS.GEN ---
Assessment & Plan Assessment/Plan (1) Acute encephalopathy: PLAN: Low grade fever, leukocytosis. LP pending. On empiric vanc/cefepime. Resp pcr panel neg, covid neg, stool pcr panel neg, UAg neg. 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 Now with low grade fever, concern for seizure or meningitis. LP done, EEG done. Started on empiric vanc/cefepime. Unable to provide history or ROS, d/w nursing at bedside. [facility] Medical History Abdominal pain Benign essential HTN Candidiasis of breast Chronic pain syndrome Depression Diabetic gastroparesis Diabetic gastroparesis Diabetic infection of right foot Diverticulitis Fibromyalgia Fibromyalgia GERD (gastroesophageal reflux disease) Hammer toe of left foot Hammer toe of right foot History of CVA (cerebrovascular accident) HLD (hyperlipidemia) Iron deficiency anemia Morbid obesity with BMI of 40.0-44.9, adult NSTEMI (non-ST elevated myocardial infarction) QIAN (obstructive sleep apnea) Paroxysmal atrial fibrillation Restless leg syndrome Rheumatoid arthritis Seizure disorder Sepsis Takotsubo cardiomyopathy Takotsubo cardiomyopathy Thyroid disease Toe osteomyelitis, right Type 2 diabetes mellitus 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 2 diabetes mellitus with diabetic polyneuropathy Ulcer of right foot Ulcer of right foot with fat layer exposed UTI (urinary tract infection) Home Medications levothyroxine 75 mcg PO DAILY 09/17/18 [History Last Taken 06/20/19 10:00] hydroxychloroquine 200 mg PO BIDCM 11/30/18 [History Last Taken 06/20/19 10:00] allopurinol 100 mg tablet 100 mg PO QHS tab 03/30/19 [History Last Taken 06/19/19 23:00] aspirin 81 mg PO DAILY 08/16/19 [History Last Taken Unknown] ropinirole 1 mg PO QHS 08/16/19 [History Last Taken Unknown] hydrocodone-acetaminophen 5-325mg 5mg-325mg 2 tab PO Q6H PRN 12/03/19 [History Last Taken Unknown] furosemide 40 mg tablet 40 mg PO DAILY PRN PRN tab 03/09/20 [History Last Taken 10/28/20 0800] pregabalin 225 mg capsule 225 mg PO BID cap 04/14/20 [History Last Taken Unknown] cholecalciferol (vitamin D3) 25 mcg (1,000 unit) capsule 25 mcg PO DAILY 08/03/20 [History Last Taken Unknown] haloperidol 1 mg PO TID PRN PRN 08/29/20 [History Last Taken Unknown] ondansetron HCl 8 mg PO Q6H PRN PRN 08/29/20 [History Last Taken Unknown] simvastatin 40 mg PO QHS 08/29/20 [History Last Taken Unknown] albuterol sulfate 2.5 mg INHALATION DAILY 09/30/20 [History Last Taken Unknown] metformin 500 mg PO DAILY 10/27/20 [History Last Taken Unknown] promethazine 25 mg PO TID PRN 10/27/20 [History Last Taken Unknown] insulin NPH isoph U-100 human 100 unit/mL (3 mL) subcutaneous pen 75 unit SC BID ml 11/30/20 [History Last Taken Unknown] budesonide 0.5 mg INHALATION BID 12/23/20 [History Last Taken Unknown] carvedilol 12.5 mg PO BID 12/23/20 [History Last Taken Unknown] duloxetine 30 mg PO BID 12/23/20 [History Last Taken Unknown] oxybutynin chloride 5 mg PO DAILY 12/23/20 [History Last Taken Unknown] Allergy/AdvReac Type Severity Reaction Status Date / Time ciprofloxacin [From Cipro] Allergy short of Verified 12/22/20 22:57 breath cyclobenzaprine Allergy rash Verified 12/22/20 22:57 levofloxacin [From Levaquin] Allergy PT UNSURE Verified 12/22/20 22:57 OF REACTION sulfamethoxazole Allergy itch Verified 12/22/20 22:57 topiramate Allergy PT UNSURE Verified 12/22/20 22:57 OF REACTION trimethoprim Allergy itch Verified 12/22/20 22:57 valacyclovir [From Valtrex] Allergy other Verified 12/22/20 22:57 ketorolac [From Toradol] AdvReac Other Verified 12/22/20 22:57 Family History Mother Myocardial infarction Asthma Diabetes Father Congestive heart failure Other Heart disease Surgical History history left foot surgery History of cholecystectomy History of knee surgery History of left heart catheterization (03/09/19) Social History Smoking Status: Heavy Smoker (>10/day) alcohol intake: never substance use type: does not use Physical Exam Narrative Jaw quivering, unable to follow commands Const Nutritional Appearance: obese HEENT normocephalic and head/scalp atraumatic Eyes PERRL Neck supple and No nodes Resp normal air movement and clear to auscultation bilaterally Cardio regular rate and regular rhythm GI normal to inspection, nondistended, normoactive bowel sounds Extremity no clubbing, cyanosis or edema Skin no rashes or lesions noted Lab / Micro Data Result Diagrams: 12/26/20 04:15 12/26/20 04:15 Labs: Laboratory Results - last 24 hr 12/24/20 12/24/20 12/25/20 04:40 16:29 04:40 WBC RBC Hgb Hct MCV MCH MCHC RDW Std Deviation RDW Coeff of Be Plt Count MPV Immature Gran % (Auto) Neut % (Auto) Lymph % (Auto) [place] % (Auto) Eos % (Auto) Baso % (Auto) Absolute Neuts (auto) Absolute Lymphs (auto) Nucleated RBC % Diff Path Review Reviewed Reviewed PT INR APTT Sodium Potassium Chloride Carbon Dioxide Anion Gap BUN Creatinine Estim Creat Clear Calc Est GFR (MDRD) Af Amer Est GFR (MDRD) Non-Af BUN/Creatinine Ratio Glucose Calcium Phosphorus Magnesium Total Bilirubin AST ALT Alkaline Phosphatase Total Protein Albumin Globulin Albumin/Globulin Ratio Vitamin B12 572 CSF Glucose POC Glucose 12/25/20 12/25/20 12/26/20 17:25 23:28 04:15 WBC 19.7 H RBC 5.51 H Hgb 14.9 Hct 45.2 MCV 82.0 MCH 27.0 MCHC 33.0 RDW Std Deviation 42.8 RDW Coeff of Be 14.5 Plt Count 297 MPV 10.0 Immature Gran % (Auto) 0.700 Neut % (Auto) 79.0 H Lymph % (Auto) 8.5 L [place] % (Auto) 9.8 Eos % (Auto) 1.4 Baso % (Auto) 0.6 Absolute Neuts (auto) 15.6 H Absolute Lymphs (auto) 1.68 Nucleated RBC % 0 Diff Path Review May foll PT INR APTT Sodium Potassium Chloride Carbon Dioxide Anion Gap BUN Creatinine Estim Creat Clear Calc Est GFR (MDRD) Af Amer Est GFR (MDRD) Non-Af BUN/Creatinine Ratio Glucose Calcium Phosphorus Magnesium Total Bilirubin AST ALT Alkaline Phosphatase Total Protein Albumin Globulin Albumin/Globulin Ratio Vitamin B12 CSF Glucose POC Glucose 161 H 150 H 12/26/20 12/26/20 12/26/20 04:15 04:15 06:16 WBC RBC Hgb Hct MCV MCH MCHC RDW Std Deviation RDW Coeff of Be Plt Count MPV Immature Gran % (Auto) Neut % (Auto) Lymph % (Auto) [place] % (Auto) Eos % (Auto) Baso % (Auto) Absolute Neuts (auto) Absolute Lymphs (auto) Nucleated RBC % Diff Path Review PT INR APTT Sodium 141 Potassium 2.9 L Chloride 110 H Carbon Dioxide 21.0 Anion Gap 10 BUN 8 Creatinine 0.72 Estim Creat Clear Calc 51.81 Est GFR (MDRD) Af Amer 105 Est GFR (MDRD) Non-Af 86 BUN/Creatinine Ratio 11.1 Glucose 115 H Calcium 8.3 L Phosphorus 1.5 L Magnesium 1.6 Total Bilirubin 1.70 H AST 17 ALT 21 Alkaline Phosphatase 114 Total Protein 6.6 Albumin 2.5 L Globulin 4.1 Albumin/Globulin Ratio 0.6 L Vitamin B12 CSF Glucose POC Glucose 121 H 12/26/20 12/26/20 12/26/20 12:00 12:51 13:37 WBC RBC Hgb Hct MCV MCH MCHC RDW Std Deviation RDW Coeff of Be Plt Count MPV Immature Gran % (Auto) Neut % (Auto) Lymph % (Auto) [place] % (Auto) Eos % (Auto) Baso % (Auto) Absolute Neuts (auto) Absolute Lymphs (auto) Nucleated RBC % Diff Path Review PT 15.4 H INR 1.3 APTT 29.3 Sodium Potassium Chloride Carbon Dioxide Anion Gap BUN Creatinine Estim Creat Clear Calc Est GFR (MDRD) Af Amer Est GFR (MDRD) Non-Af BUN/Creatinine Ratio Glucose Calcium Phosphorus Magnesium Total Bilirubin AST ALT Alkaline Phosphatase Total Protein Albumin Globulin Albumin/Globulin Ratio Vitamin B12 CSF Glucose 69 POC Glucose 137 H ABG Data ABG results: ABG 12/26/20 07:19 Specimen Type YOLANDA Sample Site L Radial VBG pH 7.46 H VBG pO2 48 H VBG HCO3 20 L VBG Total CO2 21 L VBG O2 Sat (Calc) 86 H VBG Base Excess -4 L POC Mix VBG pCO2 Pt Tmp 29.0 L O2 Delivery Device Room Air
[2020-12-26 14:35] LABS: RBC Count, Spinal Fluid 142 /mm-3 (None seen); White Count, CSF 2 /mm-3 (0 - 5)
[2020-12-26 14:46] LABS: Lymphocytes,CSF 90 % (40 - 80); Monocytes,CSF 10 % (15 - 45)
[2020-12-26 15:01] LABS: Vancomycin, Trough Level 22.9 ug/mL (5.0-15.0)
--- NOTE | 2020-12-26 15:29 | PCM.RX.CS ---
Consult Pharmacy has been consulted to manage selected antiobiotic: Vancomycin Type of Consult: Follow-up Suspected Infection: Sepsis Prior Doses of Antibiotics Received/Current Regimen: Received 2gm iv x 1 on 12.25.20 and then 1750mg iv q12h started on 12.26.20. Labs: Sodium 141 mmol/L (136-145) 12/26/20 04:15 Potassium 2.9 mmol/L (3.5-5.1) L 12/26/20 04:15 Chloride 110 mmol/L (98-107) H 12/26/20 04:15 Carbon Dioxide 21.0 mmol/L (21.0-32.0) 12/26/20 04:15 Anion Gap 10 (5-15) 12/26/20 04:15 BUN 8 mg/dL (7-18) 12/26/20 04:15 Creatinine 0.72 mg/dL (0.55-1.02) 12/26/20 04:15 Est GFR (MDRD) Af Amer 105 mL/min (>60) 12/26/20 04:15 Est GFR (MDRD) Non-Af 86 mL/min (>60) 12/26/20 04:15 BUN/Creatinine Ratio 11.1 RATIO (10-20) 12/26/20 04:15 Glucose 115 mg/dL (74-106) H 12/26/20 04:15 Vancomycin Trough 22.9 ug/mL (5.0-15.0) H 12/26/20 14:20 Microbiology: Microbiology 12/26/20 13:37 Csf, Spinal Fluid Gram Stain - Final 12/23/20 01:35 Blood Culture (Wb) - Right Hand Blood Culture - Preliminary No growth in 48 hours. 12/23/20 01:20 Blood Culture (Wb) - Anticubital Right Blood Culture - Preliminary No growth in 48 hours. 12/24/20 15:50 Urine Catheter - Robb Legionella Antigen - Final 12/24/20 15:50 Urine Catheter - Robb Streptococcus pneumoniae Antigen (M - Final 12/23/20 07:50 Stool Enteric Bacteriology - Final 12/23/20 07:50 Stool Stool Lactoferrin - Final 12/23/20 04:45 Mucosa - Nasopharyngeal Respiratory Panel (PCR) - Final 12/23/20 01:30 Urine Catheter - Catheter Legionella Antigen - Final 12/23/20 01:30 Urine Catheter - Catheter Streptococcus pneumoniae Antigen (M - Final 12/23/20 01:20 Stool C. difficile DNA Amplification - Final 12/23/20 02:50 Nasal Secretion SARS-CoV-2 Antigen (Rapid) - Final Weight used for dosin.7 kg Estimated Creatinine Clearance: 109ml/min Goal Trough: 15-20 mcg/mL Pharmacy Plan for Drug Dosing: Trough level today was 22.9 (goal range 15-20mcg/ml). SCr 0.72 and SCrCl calculated to be ~109ml/min for adjusted body weight of 90kg.Will hold further dosing for now and get a random level in AM on 12.27.20. Will redose when level <20mcg/ml. Pharmacy Service will continue to monitor and adjust dosing as required. Follow-Up Labs: Trough Vancomycin - 12.27.20 @0600 (random level)
[2020-12-26] MEDS: hydrALAZINE 20 MG/ML Vial 5 MG IV (16:28)
[2020-12-26] MEDS: LORazepam 2 MG/ML Syringe 1 MG IV ×2 (16:35→20:01)
[2020-12-26 17:21] LABS: Bedside Glucose 160 mg/dL (70-110)
[2020-12-26] MEDS: Insulin Lispro 100 UNIT/ML INSULN.PEN SC (17:22)
--- NOTE | 2020-12-26 18:55 | PCM.DC.SUM ---
Providers Date of Admission: 12/23/20 Primary Care Physician: Dr. Devan Parks MD Consultations 12/23/20 03:58 Consult: Paradichlorobenzene Machine Operator / Pulmonary Medicine Routine Consulting Provider: Austin Hawley Reason for Consult: severe sepsis EMERGENT Consult: No Notified: Yes Date Notified:: 12/23/20 Time Notified: 03:37 Method of Notification: Text 12/23/20 17:56 Consult: Onc/Wound/patient support tech Routine Comment: right great toe 12/25/20 11:04 Consult: Infectious Disease Routine Consulting Provider: Alexis Reinoso Reason for Consult: SIRS w/ LA, encephalopathic, unclear etiology EMERGENT Consult: No Notified: Yes Date Notified:: 12/25/20 Time Notified: 11:04 Method of Notification: Text Reason For Visit: SEVERE SEPSIS Diagnosis Discharge Diagnosis (1) Acute encephalopathy: Status: Acute Code(s): G93.40 - Encephalopathy, unspecified Medications at Discharge Home Medications levothyroxine 75 mcg PO DAILY 09/17/18 hydroxychloroquine 200 mg PO BIDCM 11/30/18 allopurinol 100 mg tablet 100 mg PO QHS tab 03/30/19 aspirin 81 mg PO DAILY 08/16/19 ropinirole 1 mg PO QHS 08/16/19 hydrocodone-acetaminophen 5-325mg 5mg-325mg 2 tab PO Q6H PRN 12/03/19 furosemide 40 mg tablet 40 mg PO DAILY PRN PRN tab 03/09/20 pregabalin 225 mg capsule 225 mg PO BID cap 04/14/20 cholecalciferol (vitamin D3) 25 mcg (1,000 unit) capsule 25 mcg PO DAILY 08/03/20 haloperidol 1 mg PO TID PRN PRN 08/29/20 ondansetron HCl 8 mg PO Q6H PRN PRN 08/29/20 simvastatin 40 mg PO QHS 08/29/20 albuterol sulfate 2.5 mg INHALATION DAILY 09/30/20 metformin 500 mg PO DAILY 10/27/20 promethazine 25 mg PO TID PRN 10/27/20 insulin NPH isoph U-100 human 100 unit/mL (3 mL) subcutaneous pen 75 unit SC BID ml 11/30/20 budesonide 0.5 mg INHALATION BID 12/23/20 carvedilol 12.5 mg PO BID 12/23/20 duloxetine 30 mg PO BID 12/23/20 oxybutynin chloride 5 mg PO DAILY 12/23/20 ABG / Lab / Microbiology Data Result Diagrams: 12/26/20 04:15 12/26/20 04:15 Laboratory: Laboratory Results - last 24 hr 12/24/20 12/24/20 12/25/20 04:40 16:29 04:40 WBC RBC Hgb Hct MCV MCH MCHC RDW Std Deviation RDW Coeff of Be Plt Count MPV Immature Gran % (Auto) Neut % (Auto) Lymph % (Auto) [place] % (Auto) Eos % (Auto) Baso % (Auto) Absolute Neuts (auto) Absolute Lymphs (auto) Nucleated RBC % Diff Path Review Reviewed Reviewed PT INR APTT Sodium Potassium Chloride Carbon Dioxide Anion Gap BUN Creatinine Estim Creat Clear Calc Est GFR (MDRD) Af Amer Est GFR (MDRD) Non-Af BUN/Creatinine Ratio Glucose Calcium Phosphorus Magnesium Total Bilirubin AST ALT Alkaline Phosphatase Total Protein Albumin Globulin Albumin/Globulin Ratio Vitamin B12 572 CSF Appearance CSF Color CSF WBC CSF RBC CSF Cell Count Tube # CSF Total Cell Counted CSF Lymphocytes CSF Monocytes CSF Comment CSF Glucose Vancomycin Trough POC Glucose 12/25/20 12/26/20 12/26/20 23:28 04:15 04:15 WBC 19.7 H RBC 5.51 H Hgb 14.9 Hct 45.2 MCV 82.0 MCH 27.0 MCHC 33.0 RDW Std Deviation 42.8 RDW Coeff of Be 14.5 Plt Count 297 MPV 10.0 Immature Gran % (Auto) 0.700 Neut % (Auto) 79.0 H Lymph % (Auto) 8.5 L [place] % (Auto) 9.8 Eos % (Auto) 1.4 Baso % (Auto) 0.6 Absolute Neuts (auto) 15.6 H Absolute Lymphs (auto) 1.68 Nucleated RBC % 0 Diff Path Review May foll PT INR APTT Sodium 141 Potassium 2.9 L Chloride 110 H Carbon Dioxide 21.0 Anion Gap 10 BUN 8 Creatinine 0.72 Estim Creat Clear Calc 51.81 Est GFR (MDRD) Af Amer 105 Est GFR (MDRD) Non-Af 86 BUN/Creatinine Ratio 11.1 Glucose 115 H Calcium 8.3 L Phosphorus Magnesium Total Bilirubin 1.70 H AST 17 ALT 21 Alkaline Phosphatase 114 Total Protein 6.6 Albumin 2.5 L Globulin 4.1 Albumin/Globulin Ratio 0.6 L Vitamin B12 CSF Appearance CSF Color CSF WBC CSF RBC CSF Cell Count Tube # CSF Total Cell Counted CSF Lymphocytes CSF Monocytes CSF Comment CSF Glucose Vancomycin Trough POC Glucose 150 H 12/26/20 12/26/20 12/26/20 04:15 06:16 12:00 WBC RBC Hgb Hct MCV MCH MCHC RDW Std Deviation RDW Coeff of Be Plt Count MPV Immature Gran % (Auto) Neut % (Auto) Lymph % (Auto) [place] % (Auto) Eos % (Auto) Baso % (Auto) Absolute Neuts (auto) Absolute Lymphs (auto) Nucleated RBC % Diff Path Review PT 15.4 H INR 1.3 APTT 29.3 Sodium Potassium Chloride Carbon Dioxide Anion Gap BUN Creatinine Estim Creat Clear Calc Est GFR (MDRD) Af Amer Est GFR (MDRD) Non-Af BUN/Creatinine Ratio Glucose Calcium Phosphorus 1.5 L Magnesium 1.6 Total Bilirubin AST ALT Alkaline Phosphatase Total Protein Albumin Globulin Albumin/Globulin Ratio Vitamin B12 CSF Appearance CSF Color CSF WBC CSF RBC CSF Cell Count Tube # CSF Total Cell Counted CSF Lymphocytes CSF Monocytes CSF Comment CSF Glucose Vancomycin Trough POC Glucose 121 H 12/26/20 12/26/20 12/26/20 12:51 13:37 13:37 WBC RBC Hgb Hct MCV MCH MCHC RDW Std Deviation RDW Coeff of Be Plt Count MPV Immature Gran % (Auto) Neut % (Auto) Lymph % (Auto) [place] % (Auto) Eos % (Auto) Baso % (Auto) Absolute Neuts (auto) Absolute Lymphs (auto) Nucleated RBC % Diff Path Review PT INR APTT Sodium Potassium Chloride Carbon Dioxide Anion Gap BUN Creatinine Estim Creat Clear Calc Est GFR (MDRD) Af Amer Est GFR (MDRD) Non-Af BUN/Creatinine Ratio Glucose Calcium Phosphorus Magnesium Total Bilirubin AST ALT Alkaline Phosphatase Total Protein Albumin Globulin Albumin/Globulin Ratio Vitamin B12 CSF Appearance CLEAR CSF Color COLORLESS CSF WBC 2 CSF RBC 142 H CSF Cell Count Tube # 3 CSF Total Cell Counted TNP CSF Lymphocytes 90 H CSF Monocytes 10 L CSF Comment May follow CSF Glucose 69 Vancomycin Trough POC Glucose 137 H 12/26/20 12/26/20 14:20 17:16 WBC RBC Hgb Hct MCV MCH MCHC RDW Std Deviation RDW Coeff of Be Plt Count MPV Immature Gran % (Auto) Neut % (Auto) Lymph % (Auto) [place] % (Auto) Eos % (Auto) Baso % (Auto) Absolute Neuts (auto) Absolute Lymphs (auto) Nucleated RBC % Diff Path Review PT INR APTT Sodium Potassium Chloride Carbon Dioxide Anion Gap BUN Creatinine Estim Creat Clear Calc Est GFR (MDRD) Af Amer Est GFR (MDRD) Non-Af BUN/Creatinine Ratio Glucose Calcium Phosphorus Magnesium Total Bilirubin AST ALT Alkaline Phosphatase Total Protein Albumin Globulin Albumin/Globulin Ratio Vitamin B12 CSF Appearance CSF Color CSF WBC CSF RBC CSF Cell Count Tube # CSF Total Cell Counted CSF Lymphocytes CSF Monocytes CSF Comment CSF Glucose Vancomycin Trough 22.9 H POC Glucose 160 H Microbiology: Microbiology 12/26/20 13:37 Gram Stain - Final Csf, Spinal Fluid Microbiology 12/26/20 13:37 Csf, Spinal Fluid Gram Stain - Final 12/23/20 01:35 Blood Culture (Wb) - Right Hand Blood Culture - Preliminary No growth in 48 hours. 12/23/20 01:20 Blood Culture (Wb) - Anticubital Right Blood Culture - Preliminary No growth in 48 hours. 12/24/20 15:50 Urine Catheter - Robb Legionella Antigen - Final 12/24/20 15:50 Urine Catheter - Robb Streptococcus pneumoniae Antigen (M - Final 12/23/20 07:50 Stool Enteric Bacteriology - Final 12/23/20 07:50 Stool Stool Lactoferrin - Final 12/23/20 04:45 Mucosa - Nasopharyngeal Respiratory Panel (PCR) - Final 12/23/20 01:30 Urine Catheter - Catheter Legionella Antigen - Final 12/23/20 01:30 Urine Catheter - Catheter Streptococcus pneumoniae Antigen (M - Final 12/23/20 01:20 Stool C. difficile DNA Amplification - Final 12/23/20 02:50 Nasal Secretion SARS-CoV-2 Antigen (Rapid) - Final ABG: ABG 12/26/20 07:19 Specimen Type YOLANDA Sample Site L Radial VBG pH 7.46 H VBG pO2 48 H VBG HCO3 20 L VBG Total CO2 21 L VBG O2 Sat (Calc) 86 H VBG Base Excess -4 L POC Mix VBG pCO2 Pt Tmp 29.0 L O2 Delivery Device Room Air Radiography Diagnostic Testing: Radiology Impression Lumbar Puncture Fluoroscopy 12/26/20 12:45 IMPRESSION: Successful fluoroscopic-guided lumbar puncture. Electronically Signed: Tristan De La Garza MD at 14:34 EDT , Service support , Discharge Plan Admission Admit Date/Time: 12/23/20 03:38 Primary Reason for Your Visit: Confusion Attending Provider: Qian Araiza Primary Care Provider: Devan Parks Consulting Providers: Austin Hawley ; Alexis Reinoso Discharge Orders/Prescriptions Prescriptions: No Action hydrocodone-acetaminophen [[place]] 5-325 mg tablet 2 tab PO Q6H PRN (Reason: Pain Or Fever) RF: 0 Humulin N NPH Insulin KwikPen 100 unit/mL (3 mL) insulin pen 75 unit SC BID RF: 0 levothyroxine 75 MCG tablet 75 mcg PO DAILY RF: 0 allopurinol 100 mg tablet 100 mg PO QHS RF: 0 hydroxychloroquine 200 MG tablet 200 mg PO BIDCM RF: 0 ropinirole 1 MG tablet 1 mg PO QHS RF: 0 aspirin 81 MG tablet,chewable 81 mg PO DAILY RF: 0 furosemide 40 mg tablet 40 mg PO DAILY PRN PRN (Reason: diuretic) RF: 0 pregabalin 225 mg capsule 225 mg PO BID RF: 0 haloperidol 0.5 MG tablet 1 mg PO TID PRN PRN (Reason: Nausea) RF: 0 ondansetron HCl 8 MG tablet 8 mg PO Q6H PRN PRN (Reason: Nausea) RF: 0 simvastatin 40 MG tablet 40 mg PO QHS RF: 0 albuterol sulfate 2.5 MG/3 ML solution for nebulization 2.5 mg INHALATION DAILY RF: 0 metformin 500 MG tablet 500 mg PO DAILY RF: 0 promethazine 25 MG tablet 25 mg PO TID PRN (Reason: Nausea) RF: 0 budesonide 0.5 mg/2 mL suspension for nebulization 0.5 mg inhalation BID RF: 0 oxybutynin chloride 5 mg Tablet 5 mg PO DAILY RF: 0 duloxetine 30 mg Capsule,Delayed Release(Dr/Ec) 30 mg PO BID RF: 0 carvedilol 12.5 mg tablet 12.5 mg PO BID RF: 0 cholecalciferol (vitamin D3) 25 mcg (1,000 unit) capsule 25 mcg PO DAILY RF: 0 Referrals / Follow Up: Devan Parks MD [Primary Care Provider] - Disposition Disposition (needs filled in before D/C Order can be placed): [facility]
[2020-12-26] MEDS: hydrALAZINE 20 MG/ML Vial IV (20:01)
[2020-12-26] MEDS: 0.9% Normal Saline 1,000 ML 100 ML IV (20:29)
--- NOTE | 2020-12-26 22:25 | NURSING ---
2005 report called to Lianna at [facility] 8[address] unit. updated Lianna at 2109 that [facility] to [facility] patient [id number] pt left [facility]
[2020-12-27 14:24] LABS: Pathologist Review Reviewed
--- NOTE | 2020-12-27 16:38 | DS.PCM_ITS ---
Providers Date of Admission: 12/23/20 Date of Discharge: 12/26/20 Primary Care Physician: Dr. Devan Parks MD Consultations 12/23/20 03:58 Consult: [facility] / Pulmonary Medicine Routine Consulting Provider: Austin Hwaley Reason for Consult: severe sepsis EMERGENT Consult: No Notified: Yes Date Notified:: 12/23/20 Time Notified: 03:37 Method of Notification: Text 12/23/20 17:56 Consult: Onc/Wound/white shoe examiner Routine Comment: right great toe 12/25/20 11:04 Consult: Infectious Disease Routine Consulting Provider: Alexis Reinoso Reason for Consult: SIRS w/ LA, encephalopathic, unclear etiology EMERGENT Consult: No Notified: Yes Date Notified:: 12/25/20 Time Notified: 11:04 Method of Notification: Text Reason For Visit: SEVERE SEPSIS Diagnosis Discharge Diagnosis (1) Acute encephalopathy: Status: Acute Code(s): G93.40 - Encephalopathy, unspecified (2) Hypomagnesemia: Status: Acute Code(s): E83.42 - Hypomagnesemia (3) Hypokalemia: Status: Acute Code(s): E87.6 - Hypokalemia (4) DKA, type 2: Status: Resolved Code(s): E11.10 - Type 2 diabetes mellitus with ketoacidosis without coma (5) Hypoglycemia associated with type 2 diabetes mellitus: Status: Acute Code(s): E11.649 - Type 2 diabetes mellitus with hypoglycemia without coma (6) Delirium: Status: Acute Code(s): R41.0 - Disorientation, unspecified Medications at Discharge Home Medications levothyroxine 75 mcg PO DAILY 09/17/18 hydroxychloroquine 200 mg PO BIDCM 11/30/18 allopurinol 100 mg tablet 100 mg PO QHS tab 03/30/19 aspirin 81 mg PO DAILY 08/16/19 ropinirole 1 mg PO QHS 08/16/19 hydrocodone-acetaminophen 5-325mg 5mg-325mg 2 tab PO Q6H PRN 12/03/19 furosemide 40 mg tablet 40 mg PO DAILY PRN PRN tab 03/09/20 pregabalin 225 mg capsule 225 mg PO BID cap 04/14/20 cholecalciferol (vitamin D3) 25 mcg (1,000 unit) capsule 25 mcg PO DAILY 08/03/20 haloperidol 1 mg PO TID PRN PRN 08/29/20 ondansetron HCl 8 mg PO Q6H PRN PRN 08/29/20 simvastatin 40 mg PO QHS 08/29/20 albuterol sulfate 2.5 mg INHALATION DAILY 09/30/20 metformin 500 mg PO DAILY 10/27/20 promethazine 25 mg PO TID PRN 10/27/20 insulin NPH isoph U-100 human 100 unit/mL (3 mL) subcutaneous pen 75 unit SC BID ml 11/30/20 budesonide 0.5 mg INHALATION BID 12/23/20 carvedilol 12.5 mg PO BID 12/23/20 duloxetine 30 mg PO BID 12/23/20 oxybutynin chloride 5 mg PO DAILY 12/23/20 Hospital Course Operations None Procedures None Summary of Care Provided Minutes Spent on Discharge: 50 Hospital Course: 35-year-old female with past medical history of type II DM complicated by polyneuropathy, gastroparesis, QIAN, seizure disorder who presented to the emergency room with confusion. Patient was reportedly incontinent of stool recently. Her work-up in the ED was significant for e nteritis seen on CT of abdomen and pelvis. She was febrile. Her work-up for other infectious etiology was unremarkable -she had negative chest x-ray, UA, blood cultures. She was admitted to the ICU and monitored. Several attempts to get an MRI of the brain was unsuccessful. A stat EEG was also unsuccessful. Patient eventually got a EEG done on 12/26/20 and results showed an abnormal EEG with near continuous frontal predominant polyphasic discharges of unclear significance. It was recommended the patient be transferred to tertiary facility for continuous EEG. Patient received benzo and an increased dose of Keppra challenge. She had minimal improvement in her lipsmacking. She also und erwent lumbar puncture with IR. CSF culture showed no growth. Work-up for West Nile RNA, enterovirus RNA, HSV 1 and 2 were pending. CSF was clear, WBC count was 2, RBCs was 142, lymphocytes was 19, monocytes were 10. Glucose was 69 Patient was accepted at [facility] epilepsy unit. Physical Exam Narrative See progress note of day. ABG / Lab / Microbiology Data Result Diagrams: 12/26/20 04:15 12/26/20 04:15 Laboratory: Laboratory Results - last 24 hr 12/26/20 12/26/20 12/26/20 13:37 13:37 17:16 CSF Comment Reviewed Miscellaneous Cytology SEE PATHOLOGY REPORT POC Glucose 160 H Microbiology: Microbiology 12/26/20 13:37 Gram Stain - Final Csf, Spinal Fluid CSF Culture - Preliminary No growth in 24 hours. Final to follow. Microbiology 12/26/20 13:37 Csf, Spinal Fluid Gram Stain - Final 12/26/20 13:37 Csf, Spinal Fluid CSF Culture - Preliminary No growth in 24 hours. Final to follow. 12/23/20 01:35 Blood Culture (Wb) - Right Hand Blood Culture - Preliminary No growth in 48 hours. 12/23/20 01:20 Blood Culture (Wb) - Anticubital Right Blood Culture - Preliminary No growth in 48 hours. 12/24/20 15:50 Urine Catheter - Robb Legionella Antigen - Final 12/24/20 15:50 Urine Catheter - Robb Streptococcus pneumoniae Antigen (M - Final 12/23/20 07:50 Stool Enteric Bacteriology - Final 12/23/20 07:50 Stool Stool Lactoferrin - Final 12/23/20 04:45 Mucosa - Nasopharyngeal Respiratory Panel (PCR) - Final 12/23/20 01:30 Urine Catheter - Catheter Legionella Antigen - Final 12/23/20 01:30 Urine Catheter - Catheter Streptococcus pneumoniae Antigen (M - Final 12/23/20 01:20 Stool C. difficile DNA Amplification - Final 12/23/20 02:50 Nasal Secretion SARS-CoV-2 Antigen (Rapid) - Final Meaningful Use Info Meaningful Use Diagnoses (Choose all that apply): None applicable Discharge Plan Admission Admit Date/Time: 12/23/20 03:38 Primary Reason for Your Visit: Confusion Attending Provider: Qian Araiza Primary Care Provider: Devan Parks Consulting Providers: Austin Hawley ; Alexis Reinoso Discharge Orders/Prescriptions Prescriptions: No Action hydrocodone-acetaminophen [[place]] 5-325 mg tablet 2 tab PO Q6H PRN (Reason: Pain Or Fever) RF: 0 Humulin N NPH Insulin KwikPen 100 unit/mL (3 mL) insulin pen 75 unit SC BID RF: 0 levothyroxine 75 MCG tablet 75 mcg PO DAILY RF: 0 allopurinol 100 mg tablet 100 mg PO QHS RF: 0 hydroxychloroquine 200 MG tablet 200 mg PO BIDCM RF: 0 ropinirole 1 MG tablet 1 mg PO QHS RF: 0 aspirin 81 MG tablet,chewable 81 mg PO DAILY RF: 0 furosemide 40 mg tablet 40 mg PO DAILY PRN PRN (Reason: diuretic) RF: 0 pregabalin 225 mg capsule 225 mg PO BID RF: 0 haloperidol 0.5 MG tablet 1 mg PO TID PRN PRN (Reason: Nausea) RF: 0 ondansetron HCl 8 MG tablet 8 mg PO Q6H PRN PRN (Reason: Nausea) RF: 0 simvastatin 40 MG tablet 40 mg PO QHS RF: 0 albuterol sulfate 2.5 MG/3 ML solution for nebulization 2.5 mg INHALATION DAILY RF: 0 metformin 500 MG tablet 500 mg PO DAILY RF: 0 promethazine 25 MG tablet 25 mg PO TID PRN (Reason: Nausea) RF: 0 budesonide 0.5 mg/2 mL suspension for nebulization 0.5 mg inhalation BID RF: 0 oxybutynin chloride 5 mg Tablet 5 mg PO DAILY RF: 0 duloxetine 30 mg Capsule,Delayed Release(Dr/Ec) 30 mg PO BID RF: 0 carvedilol 12.5 mg tablet 12.5 mg PO BID RF: 0 cholecalciferol (vitamin D3) 25 mcg (1,000 unit) capsule 25 mcg PO DAILY RF: 0 Referrals / Follow Up: Devan Parks MD [Primary Care Provider] - Disposition Disposition (needs filled in before D/C Order can be placed): Acute Care Hospital Visit Charges Inpatient E&M: 80360 Disch Hosp
[2020-12-28 12:48] LABS: Pathologist Review Reviewed
[2021-01-05 20:08] LABS: HSV 1 By PCR Negative (Negative)
[2021-01-05 21:27] LABS: Enterovirus By PCR Negative (Negative)
[2021-01-05 21:28] LABS: HSV 2 By PCR Negative (Negative); West Nile Virus Qual by PCR Negative (.)
== END 2020-12-26 21:15 | disposition short-term general hospital (02) | DRG 100 ==
LOC: ED 12-23 02:52 → ICU 12-23 03:40
PROVIDERS: Family Medicine; Internal Medicine Critical Care Medicine; Radiology Diagnostic Radiology; Admitting Provider Hospitalist; Emergency Provider Emergency Medicine; PCP Family Medicine; Visit Provider Internal Medicine
DX: G40.901 Epilepsy, unspecified, not intractable, with status epilepticus (principal); E11.10 Type 2 diabetes mellitus with ketoacidosis without coma; I51.81 Takotsubo syndrome; Z68.42 Body mass index [BMI] 45.0-49.9, adult; I50.32 Chronic diastolic (congestive) heart failure; R19.7 Diarrhea, unspecified; E11.42 Type 2 diabetes mellitus with diabetic polyneuropathy; M10.9 Gout, unspecified; E11.43 Type 2 diabetes mellitus with diabetic autonomic (poly)neuropathy; K31.84 Gastroparesis; E11.69 Type 2 diabetes mellitus with other specified complication; E03.9 Hypothyroidism, unspecified; R50.9 Fever, unspecified; D50.9 Iron deficiency anemia, unspecified; E66.01 Morbid (severe) obesity due to excess calories; E11.649 Type 2 diabetes mellitus with hypoglycemia without coma; E78.5 Hyperlipidemia, unspecified; E83.39 Other disorders of phosphorus metabolism; E83.42 Hypomagnesemia; E87.6 Hypokalemia; R45.1 Restlessness and agitation; F32.9 Major depressive disorder, single episode, unspecified; G25.81 Restless legs syndrome; G47.33 Obstructive sleep apnea (adult) (pediatric); G89.4 Chronic pain syndrome; N18.31 Chronic kidney disease, stage 3a; E11.22 Type 2 diabetes mellitus with diabetic chronic kidney disease; I12.9 Hypertensive chronic kidney disease with stage 1 through stage 4 chronic kidney disease, or unspecified chronic kidney disease; I48.0 Paroxysmal atrial fibrillation; K21.9 Gastro-esophageal reflux disease without esophagitis; E11.621 Type 2 diabetes mellitus with foot ulcer; L97.512 Non-pressure chronic ulcer of other part of right foot with fat layer exposed; G43.909 Migraine, unspecified, not intractable, without status migrainosus; J45.909 Unspecified asthma, uncomplicated; M06.9 Rheumatoid arthritis, unspecified; M79.7 Fibromyalgia; M17.12 Unilateral primary osteoarthritis, left knee; M16.12 Unilateral primary osteoarthritis, left hip; M54.5 Low back pain; I25.2 Old myocardial infarction; Z79.4 Long term (current) use of insulin; Z86.73 Personal history of transient ischemic attack (TIA), and cerebral infarction without residual deficits; Z87.440 Personal history of urinary (tract) infections; Z86.19 Personal history of other infectious and parasitic diseases; Z79.82 Long term (current) use of aspirin; Z79.899 Other long term (current) drug therapy; M20.41 Other hammer toe(s) (acquired), right foot; M20.42 Other hammer toe(s) (acquired), left foot; Z87.19 Personal history of other diseases of the digestive system; Z90.49 Acquired absence of other specified parts of digestive tract
CPT/HCPCS: 36415; 36569; 36600; 51702; 62270; 70450; 71045; 73552; 74177; 77003; 80048; 80053; 80202; 80307; 81001; 82009; 82077; 82140; 82607; 82803; 82945; 82962; 83036; 83605; 83630; 83735; 83880; 84100; 84443; 84484; 85025; 85610; 85730; 87040; 87070; 87177; 87205; 87209; 87426; 87449; 87493; 87498; 87506; 87529; 87633; 87641; 87798; 88108; 88313; 89050; 89051; 93005; 94640; 95819; 96372; 96374; 96375; 99282; 99285; J7030; J7040; J7050; Q9967; A4216; J2405; J3486; J3490

== ENCOUNTER 2021-01-17 10:04 | Inpatient (IN) | payer MEDICARE, MEDICAID, SELFPAY ==
[2020-12-23 03:59] VITALS: BMI 48.2
[2021-01-17] VITALS (9 sets, daily range): BP systolic 148–178; BP diastolic 52–86; PULSE 74–98; RESP 17–27; TEMP 36.5–37.1; O2SAT 95–99; BMI 52.0; BMI 50.4
--- NOTE | 2021-01-17 10:15 | EKG12_ITS ---
Test Reason : ABD PAIN Blood Pressure : / mmHG Vent. Rate : 079 BPM Atrial Rate : 079 BPM P-R Int : 134 ms QRS Dur : 088 ms QT Int : 414 ms P-R-T Axes : -02 -24 033 degrees QTc Int : 474 ms Normal sinus rhythm Normal ECG Confirmed by JOSE MANUEL CURRY, SHAHIDA ([id number]), film editor VIDAL MCDERMOTT ([id number]) on 01/19/2021 12:24:59 PM Referred By: RADHA Confirmed By:SHAHIDA RICHARD MD
--- NOTE | 2021-01-17 10:15 | VDUE_ITS ---
Reason For Study: swelling Left Proximal Left jugular vein is spontaneous, widely patent, phasic, with no intraluminal echogenicity noted. Left subclavian vein is spontaneous, widely patent, phasic, with no intraluminal echogenicity noted. Left Arm Left axillary vein is spontaneous, patent, phasic, competent, compressible and demonstrates augmentation. Left brachial vein is compressible. Left cephalic vein is compressible. Left basilic vein is compressible. Left Lower Arm Left radial vein is compressible. Left ulnar vein is compressible. Limited veiws of veins due to pt body habitus. Prelim to the nursing staff. VL/Venous Duplex US, Unilateral Interpretation Summary No evidence for acute deep venous thrombosis[left] upper extremity with patent and compressible cephalic and basilic veins. Technical difficulties noted secondary to patient b bessy habitus. Ordering Physician: Robe Root Performed By: Jose Manuel Stack RVT ?
--- NOTE | 2021-01-17 10:16 | CT_ITS ---
STUDY: CT ABDOMEN AND PELVIS WITHOUT CONTRAST REASON FOR EXAM: Female, 65 years old. Abdominal pain for one week. Recent stroke. RADIATION DOSAGE (If Supplied By Facility): CTDIvol = ( 34.45 ) mGy, DLP = ( 1781.77 ) mGycm TECHNIQUE: Transaxial images were obtained from the dome of the diaphragm to the symphysis pubis without oral contrast, and without intravenous contrast. Sagittal and coronal images were reconstructed. Individualized dose optimization techniques were used for this CT. COMPARISON: Comparison is made with prior study dated 12/23/2020. FINDINGS: New small bilateral pleural effusions with bibasilar atelectasis. Coronary artery calcification. Normal liver. The patient is status post cholecystectomy. Normal spleen. Normal pancreas. Normal bilateral adrenal glands. Normal right kidney. Normal left kidney. Mild degree of nonspecific bilateral perinephric stranding. Normal visualized stomach. Normal small intestine. Normal colon. There is non-visualization of the appendix. There is scattered atherosclerotic calcification of the abdominal aorta, without a demonstrated aneurysm. Normal inferior vena cava. There is borderline retroperitoneal lymphadenopathy with enlarged nodes no greater than 10mm in the short axis diameter. The urinary bladder is distended. There is a small umbilical hernia containing fat. There are degenerative changes of the visualized lumbar spine. CT/Abdomen/Pelvis without Cont IMPRESSION: New small bilateral pleural effusions. Nonspecific mild degree of bilateral perinephric stranding. Electronically Signed: Tristan De La Garza MD at 12:21 EDT , Service support ,
--- NOTE | 2021-01-17 10:18 | CT_ITS ---
STUDY: CT BRAIN WITHOUT CONTRAST REASON FOR EXAM: Female, 65 years old. vomit ting, recent stroke RADIATION DOSAGE (If Supplied By Facility): CTDIvol = ( 44.99 ) mGy, DLP = ( 812.98 ) mGycm TECHNIQUE: Transaxial CT imaging of the brain was performed without administration of intravenous contrast material. Individualized dose optimization techniques were used for this CT. COMPARISON: Comparison is made with prior study of 12/23/2020. FINDINGS: Normal soft tissue structures. There is hyperostosis frontalis internus. Normal size ventricles and extra-axial spaces for the patient''s age. Normal white matter tracts of the cerebral hemispheres. Normal basal ganglia and thalami. Normal brainstem. Normal cerebellum. There is no intracranial hemorrhage. There are no findings of an acute ischemic infarction. Normal visualized paranasal sinuses. CT/Brain/Head without Contrast IMPRESSION: Normal unenhanced CT scan of the brain. Electronically Signed: Tristan De La Garza MD at 12:22 EDT , Service support ,
--- NOTE | 2021-01-17 10:18 | EDS_ITS ---
HPI History of Present Illness Chief Complaint: Abd Pain Detail of Chief Complaint: Abdominal pain, nausea and vomiting for 5 days Informant: patient Narrative Narrative: Patient presents to the emergency department via EMS from longterm. Patient's been having abdominal pain and nausea and vomiting for 5 days. Patient was seen at [facility] 4 days ago and had lab work that was unremarkable however she did not have any type of imaging. Patient apparently was admitted from December 26 through the and was treated for a posterior cerebral infarct and PRESS syndrome. Patient states that she is having emesis 1-2 times a day. She is also had some loose stools and has been checked for C. difficile and has been negative. Patient was referred to the emergency department by Dr. Pittman requesting a CT scan of the patient's abdomen. Patient also had a recent PICC line to the left upper extremity and there is concerned that it is more swollen and concern for DVT of the extremity. Prior similar symptoms: No PFSH PFSH Medical History (Updated 01/17/21 @ 14:[address] Robe Root, DO) Abdominal pain Benign essential HTN Candidiasis of breast Chronic pain syndrome Depression Diabetic gastroparesis Diabetic gastroparesis Diabetic infection of right foot Diverticulitis Fibromyalgia Fibromyalgia GERD (gastroesophageal reflux disease) Hammer toe of left foot Hammer toe of right foot History of CVA (cerebrovascular accident) HLD (hyperlipidemia) Iron deficiency anemia Morbid obesity with BMI of 40.0-44.9, adult NSTEMI (non-ST elevated myocardial infarction) QIAN (obstructive sleep apnea) Paroxysmal atrial fibrillation Restless leg syndrome Rheumatoid arthritis Seizure disorder Sepsis Takotsubo cardiomyopathy Takotsubo cardiomyopathy Thyroid disease Toe osteomyelitis, right Type 2 diabetes mellitus 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 2 diabetes mellitus with diabetic polyneuropathy Ulcer of right foot Ulcer of right foot with fat layer exposed UTI (urinary tract infection) Home Medications levothyroxine 75 mcg PO DAILY 09/17/18 [History Last Taken 06/20/19 10:00] hydroxychloroquine 200 mg PO BIDCM 11/30/18 [History Last Taken 06/20/19 10:00] allopurinol 100 mg tablet 100 mg PO QHS tab 03/30/19 [History Last Taken 06/19/19 23:00] aspirin 81 mg PO DAILY 08/16/19 [History Last Taken Unknown] ropinirole 1 mg PO QHS 08/16/19 [History Last Taken Unknown] hydrocodone-acetaminophen 5-325mg 5mg-325mg 2 tab PO Q6H PRN 12/03/19 [History Last Taken Unknown] furosemide 40 mg tablet 40 mg PO DAILY PRN PRN tab 03/09/20 [History Last Taken 10/28/20 0800] pregabalin 225 mg capsule 225 mg PO BID cap 04/14/20 [History Last Taken Unknown] cholecalciferol (vitamin D3) 25 mcg (1,000 unit) capsule 25 mcg PO DAILY 08/03/20 [History Last Taken Unknown] haloperidol 1 mg PO TID PRN PRN 08/29/20 [History Last Taken Unknown] ondansetron HCl 8 mg PO Q6H PRN PRN 08/29/20 [History Last Taken Unknown] simvastatin 40 mg PO QHS 08/29/20 [History Last Taken Unknown] albuterol sulfate 2.5 mg INHALATION DAILY 09/30/20 [History Last Taken Unknown] metformin 500 mg PO DAILY 10/27/20 [History Last Taken Unknown] promethazine 25 mg PO TID PRN 10/27/20 [History Last Taken Unknown] insulin NPH isoph U-100 human 100 unit/mL (3 mL) subcutaneous pen 75 unit SC BID ml 11/30/20 [History Last Taken Unknown] budesonide 0.5 mg INHALATION BID 12/23/20 [History Last Taken Unknown] carvedilol 12.5 mg PO BID 12/23/20 [History Last Taken Unknown] duloxetine 30 mg PO BID 12/23/20 [History Last Taken Unknown] oxybutynin chloride 5 mg PO DAILY 12/23/20 [History Last Taken Unknown] Allergy/AdvReac Type Severity Reaction Status Date / Time ciprofloxacin [From Cipro] Allergy short of Verified 01/17/21 10:04 breath cyclobenzaprine Allergy rash Verified 01/17/21 10:04 levofloxacin [From Levaquin] Allergy PT UNSURE Verified 01/17/21 10:04 OF REACTION sulfamethoxazole Allergy itch Verified 01/17/21 10:04 topiramate Allergy PT UNSURE Verified 01/17/21 10:04 OF REACTION trimethoprim Allergy itch Verified 01/17/21 10:04 valacyclovir [From Valtrex] Allergy other Verified 01/17/21 10:04 ketorolac [From Toradol] AdvReac Other Verified 01/17/21 10:04 Family History Mother Myocardial infarction Asthma Diabetes Father Congestive heart failure Other Heart disease Surgical History history left foot surgery History of cholecystectomy History of knee surgery History of left heart catheterization (03/09/19) Social History Smoking Status: Never smoker alcohol intake: never substance use type: does not use ROS ROS ED Constitutional Constitutional ED: Reports systems reviewed and no addt'l complaints, except as documented; Denies body ache(s), change in weight or chills Eyes Eyes: Denies acute decrease in peripheral vision, change in vision, double vision or loss of vision ENT ENT ED: Reports none; Denies ear pain, lip swelling, loss taste/smell, neck pain, otalgia or sore throat Cardiovascular Cardiovascular: Reports none; Denies abdominal pain, chest pain with activity, leg edema, lightheadedness, palpitations, rapid heart rate or syncope Respiratory/Chest Respiratory/Chest: Reports none; Denies change in mental status, dry cough, dyspnea, hemoptysis, shortness of breath at rest or shortness of breath with exertion Gastrointestinal Gastrointestinal: Reports none, abdominal pain, diarrhea, nausea and vomiting; Denies change in stool character, hematemesis, hematochezia, melena or rectal bleeding Genitourinary Genitourinary ED: Reports none; Denies abdominal discomfort, anuria, dysuria, genital pain or polyuria Musculoskeletal Musculoskeletal: Reports none; Denies arthralgias, back pain, difficulty walking, extremity pain, muscle weakness or myalgias Integumentary Reports none; Denies abscess or rash Neurologic Neurologic: Reports none and headache(s); Denies abnormal gait, confusion, focal weakness, frequent falls, loss of vision, numbness, paresthesias, radicular pain, vertigo or weakness Psychiatric Psychiatric: Reports systems reviewed and no addt'l complaints, except as documented and none; Denies behavioral changes, confusion, difficulty concentrating, hallucinations, suicidal ideation, tactile hallucinations or visual hallucinations Endocrine Endocrinology: Denies none, cold intolerance, excessive sweating, fatigue or heat intolerance Hematologic/Lymphatic Hematologic/Lymphatic: Reports none; Denies anemia, easy bleeding or easy bruising Allergic/Immunologic Allergic/Immunologic ED: Denies as per HPI, none, lip swelling, mouth swelling, throat swelling, tongue swelling or hives EXAM Physical Exam Const Vital Signs: 01/17/21 10:05 01/17/21 12:04 01/17/21 13:14 Temperature 98.1 F 98.8 F 97.7 F L Temperature Source Temporal Temporal Temporal Pulse Rate 78 74 76 Respiratory Rate 18 17 27 H Blood Pressure 158/60 H 148/86 H 156/63 H Blood Pressure Mean 92 106 94 Pulse Ox 97 98 98 Oxygen Delivery Method Nasal Cannula Nasal Cannula Room Air Oxygen Flow Rate (L/min) 4 4 Positive well nourished and well developed General Appearance ED: well developed and NAD HEENT Reports TM's clear and dry mucous membranes; Denies moist mucous membranes normocephalic and atraumatic; Negative for trauma or tenderness Tympanic Membrane ED: Yes TM's clear Mouth ED: Yes dry mucous membranes Mouth: dry mucous membranes Eyes PERRL and EOMs intact bilaterally General Eye ED: Negative for pale conjunctiva or scleral icterus Neck no lymphadenopathy, supple and no JVD General: Negative for tenderness Chest Wall inspection of chest normal and palpation of chest normal Chest: Negative for tenderness Resp normal respiratory effort and clear to auscultation bilaterally Effort and Inspection: Negative for respiratory distress or pain with movement Auscultation: Negative for rhonchi, wheezes or diminished lung sounds Cardio regular rate, regular rhythm, S1 normal heart sound, S2 normal heart sound and no murmurs Peripheral Pulses: pulses 2+ throughout GI normal to inspection, nondistended, normoactive bowel sounds, soft to palpation and no masses; Negative for non-tender Palpation: tender Back/Spine no CVA tenderness and no thoracic nor lumbar tenderness Extremity normal to inspection Extremity Narrative: Left upper extremity is edematous. Pulses intact. Normal strength. General Extremety ED: Negative for edema General Extremity: Negative for edema Neuro oriented x3, CN's II-XII intact bilaterally, no sensory deficits noted and gait normal Sensorium / Orientation: awake, alert, oriented to person, oriented to place and oriented to time Motor Exam: strength 5/5 throughout and strength abnormal Psych mental status grossly normal Skin no rashes or lesions noted and no wounds MDM MDM MDM Narrative Medical decision making narrative: Patient had urine culture sent and was started on Rocephin 1 g IV. She was medicated initially with Reglan and she continued complaint of nausea and was given Zofran 4 mg IV. Case discussed with hospitalist will evaluate patient for admission. Lab Data Attestation: I reviewed the patient's lab results. Labs: Laboratory Results - last 24 hr 01/17/21 01/17/21 01/17/21 10:51 10:51 10:51 WBC 12.9 H RBC 3.44 L Hgb 9.2 L Hct 28.5 L MCV 82.8 D MCH 26.7 L MCHC 32.3 D RDW Std Deviation 39.7 RDW Coeff of Be 13.1 Plt Count 262 MPV 9.0 Immature Gran % (Auto) 0.400 Neut % (Auto) 84.0 H Lymph % (Auto) 6.9 L [place] % (Auto) 5.7 Eos % (Auto) 2.7 Baso % (Auto) 0.3 Absolute Neuts (auto) 10.8 H Absolute Lymphs (auto) 0.89 Nucleated RBC % 0 Sodium 130 L Potassium 4.1 Chloride 90 L Carbon Dioxide 31.0 Anion Gap 9 BUN 9 Creatinine 1.02 Estim Creat Clear Calc 50.79 Est GFR (MDRD) Af Amer 70 Est GFR (MDRD) Non-Af 58 L BUN/Creatinine Ratio 8.8 L Glucose 118 H Lactic Acid 0.6 Calcium 8.5 Total Bilirubin 1.00 AST 29 ALT 36 Alkaline Phosphatase 155 H Troponin I < 0.015 B-Natriuretic Peptide Total Protein 7.0 Albumin 2.5 L Globulin 4.5 H Albumin/Globulin Ratio 0.6 L Lipase 57 L Urine Color Urine Clarity Urine pH Ur Specific [place] Urine Protein Urine Glucose (UA) Urine Ketones Urine Occult Blood Urine Nitrite Urine Bilirubin Urine Urobilinogen Ur Leukocyte Esterase Urine RBC Urine WBC Ur Squamous Epith Cells Urine Bacteria Urine Mucus 01/17/21 01/17/21 10:51 13:00 WBC RBC Hgb Hct MCV MCH MCHC RDW Std Deviation RDW Coeff of Be Plt Count MPV Immature Gran % (Auto) Neut % (Auto) Lymph % (Auto) [place] % (Auto) Eos % (Auto) Baso % (Auto) Absolute Neuts (auto) Absolute Lymphs (auto) Nucleated RBC % Sodium Potassium Chloride Carbon Dioxide Anion Gap BUN Creatinine Estim Creat Clear Calc Est GFR (MDRD) Af Amer Est GFR (MDRD) Non-Af BUN/Creatinine Ratio Glucose Lactic Acid Calcium Total Bilirubin AST ALT Alkaline Phosphatase Troponin I B-Natriuretic Peptide 285.9 H Total Protein Albumin Globulin Albumin/Globulin Ratio Lipase Urine Color Yellow Urine Clarity Cloudy Urine pH 6.0 Ur Specific [place] 1.015 Urine Protein 30 H Urine Glucose (UA) Normal Urine Ketones 50 H Urine Occult Blood 150 H Urine Nitrite Negative Urine Bilirubin Negative Urine Urobilinogen Normal Ur Leukocyte Esterase 500 H Urine RBC 0 SEEN Urine WBC >100 SEEN Ur Squamous Epith Cells 0 SEEN Urine Bacteria 0 SEEN Urine Mucus 0 SEEN Radiography Chest X-Ray - ED: 1 View Diagnostic Testing: Radiology Impression Venous Doppler Study 01/17/21 10:15 Interpretation Summary No evidence for acute deep venous thrombosis[left] upper extremity with patent and compressible cephalic and basilic veins. Technical difficulties noted secondary to patient body habitus. Ordering Physician: Robe Root Performed By: Jose Manuel Stack, T ? Abdomen/Pelvis CT 01/17/21 10:16 IMPRESSION: New small bilateral pleural effusions. Nonspecific mild degree of bilateral perinephric stranding. Electronically Signed: Tristan De La Garza MD at 12:21 EDT , Service support , Brain CT 01/17/21 10:18 IMPRESSION: Normal unenhanced CT scan of the brain. Electronically Signed: Tristan De La Garza MD at 12:22 EDT , Service support , Chest X-Ray 01/17/21 11:20 IMPRESSION: Cardiomegaly and mild degree of CHF. Electronically Signed: Tristan De La Garza MD at 12:01 EDT , Service support , 1 view chest x-ray obtained read by myself as bilateral small pleural effusions with cardiomegaly and CHF. Radiology in agreement. EKG Initial EKG: Comments: Sinus rhythm with a ventricular rate of 79 bpm with no acute ST segment changes. Discharge Plan Triage Chief Complaint: Abd Pain ED Provider: Robe Root Dx/Rx/DC Orders Clinical Impression: Intractable nausea and vomiting, CHF (congestive heart failure), Acute UTI Prescriptions: No Action hydrocodone-acetaminophen [[place]] 5-325 mg tablet 2 tab PO Q6H PRN (Reason: Pain Or Fever) RF: 0 Humulin N NPH Insulin KwikPen 100 unit/mL (3 mL) insulin pen 75 unit SC BID RF: 0 levothyroxine 75 MCG tablet 75 mcg PO DAILY RF: 0 allopurinol 100 mg tablet 100 mg PO QHS RF: 0 hydroxychloroquine 200 MG tablet 200 mg PO BIDCM RF: 0 ropinirole 1 MG tablet 1 mg PO QHS RF: 0 aspirin 81 MG tablet,chewable 81 mg PO DAILY RF: 0 furosemide 40 mg tablet 40 mg PO DAILY PRN PRN (Reason: diuretic) RF: 0 pregabalin 225 mg capsule 225 mg PO BID RF: 0 haloperidol 0.5 MG tablet 1 mg PO TID PRN PRN (Reason: Nausea) RF: 0 ondansetron HCl 8 MG tablet 8 mg PO Q6H PRN PRN (Reason: Nausea) RF: 0 simvastatin 40 MG tablet 40 mg PO QHS RF: 0 albuterol sulfate 2.5 MG/3 ML solution for nebulization 2.5 mg INHALATION DAILY RF: 0 metformin 500 MG tablet 500 mg PO DAILY RF: 0 promethazine 25 MG tablet 25 mg PO TID PRN (Reason: Nausea) RF: 0 budesonide 0.5 mg/2 mL suspension for nebulization 0.5 mg inhalation BID RF: 0 oxybutynin chloride 5 mg Tablet 5 mg PO DAILY RF: 0 duloxetine 30 mg Capsule,Delayed Release(Dr/Ec) 30 mg PO BID RF: 0 carvedilol 12.5 mg tablet 12.5 mg PO BID RF: 0 cholecalciferol (vitamin D3) 25 mcg (1,000 unit) capsule 25 mcg PO DAILY RF: 0 Primary Care Provider: Devan Parks Referrals: Devan Parks MD [Primary Care Provider] - Disposition Disposition: Acute Care Hospital [facility]
[2021-01-17 11:02] LABS: Absolute Lymphocyte Count 0.89 X10^3/uL (0.83-4.51); Absolute Neutrophil Count 10.8 X10^3/uL (2.0-7.7); Basophil# 0.04 X10^3/uL; Basophil% 0.3 % (0-1); Eosinophil# 0.35 X10^3/uL; Eosinophils% 2.7 % (0-5); Hematocrit 28.5 % (37-47); Hemoglobin 9.2 g/dL (12.0-15.0); Lymphocyte # 0.89 X10^3/ul (0.83-4.51); Lymphocyte % 6.9 % (19-41); Mean Corp Hgb Conc 32.3 g/dL (32-36); Mean Corpuscular Hgb 26.7 pg (27.0-32.0); Mean Corpuscular Volume 82.8 fL (81-99); Monocyte# 0.73 X10^3/uL; Monocyte% 5.7 % (0-10); NRBC Flagged by Analyzer 0 % (0-5); Neutrophil # 10.82 X10^3/uL (2.7-7.7); Platelet Count 262 K/mm3 (150-450); RBC Distribution Width CV 13.1 % (11.6-14.6); RBC Distribution Width SD 39.7 fl (35.1-43.9); Red Blood Count 3.44 M/mm3 (4.2-5.4); White Blood Count 12.9 K/mm3 (4.4-11.0)
--- NOTE | 2021-01-17 11:20 | RAD_ITS ---
STUDY: X-RAY CHEST REASON FOR EXAM: Female, 65 years old. Dyspnea TECHNIQUE: Single AP portable view of the chest. COMPARISON: Comparison is made with prior study dated 12/23/2020. FINDINGS: Mild degree of CHF. There is no demonstrated pleural abnormality. There is moderate cardiac enlargement. Normal mediastinum and judith. Normal visualized pulmonary arteries. Normal visualized aortic arch and descending thoracic aorta. Normal visualized thoracic spine. Normal visualized ribs, clavicles, and shoulders. There is no demonstrated abnormality of the visualized soft tissue structures of the upper abdomen. RAD/Chest 1 View (Portable) IMPRESSION: Cardiomegaly and mild degree of CHF. Electronically Signed: Tristan De La Garza MD at 12:01 EDT , Service support ,
[2021-01-17 11:23] LABS: ALB/GLOB Ratio 0.6 RATIO (0.9-2.4); AST(SGOT) 29 U/L (15-37); Alanine Aminotransfer ALT/SGPT 36 U/L (13-56); Albumin, Serum 2.5 g/dL (3.2-5.0); Alkaline Phosphatase 155 U/L (45-117); Anion Gap 9 (5-15); BUN 9 mg/dL (7-18); BUN/Creat Ratio 8.8 RATIO (10-20); Calcium,Total 8.5 mg/dL (8.5-10.1); Chloride 90 mmol/L (98-107); Creatinine, Serum 1.02 mg/dL (0.55-1.02); EST Glomerular Filtration Rate 58 mL/min (>60); Est Glom Filt Rate - Afr Amer 70 mL/min (>60); Estimated Creatinine Clearance 50.79 ml/min; Globulin 4.5 g/dL (2.2-4.2); Glucose 118 mg/dL (74-106); Lipase 57 U/L (73-393); Potassium 4.1 mmol/L (3.5-5.1); Sodium Level 130 mmol/L (136-145)
[2021-01-17 11:26] LABS: Lactic Acid 0.6 mmol/L (0.4-1.9)
[2021-01-17 11:29] LABS: BNP,B-Type NATRIURETIC PEPTIDE 285.9 pg/mL (0-100)
[2021-01-17] MEDS: 0.9% Normal Saline 1,000 ML 1000 ML IV (12:16)
[2021-01-17] MEDS: Metoclopramide 10 MG/2 ML Vial IV (12:17)
[2021-01-17 13:15] LABS: Bacteria 0 SEEN /hpf (None Seen); Mucous, Urine 0 SEEN /hpf (<or=2+); Red Blood Cells-Urine 0 SEEN /hpf (0-5); Squamous Epithelial Cells - UA 0 SEEN /hpf (5-10)
[2021-01-17 13:17] LABS: Color, Urine Yellow (Yellow); Glucose, Dipstick Normal (Normal); Ketone-Dipstick 50 mg/dl (Negative); Leukocyte Esterase-Dipstick 500 /ul (Negative); Nitrite-Dipstick Negative (Negative); Occult Blood-Urine 150 /ul (Negative); Protein-Dipstick 30 mg/dl (Negative); Specific Gravity, Urine 1.015 (1.002-1.030); Urine Bilirubin Dipstick Negative (Negative); Urine Clarity Cloudy (Clear); Urine Urobilinogen Normal (Normal)
[2021-01-17 13:24] LABS: White Blood Cells >100 SEEN /hpf (0-5)
[2021-01-17] MEDS: 0.9% Normal Saline 1,000 ML 150 ML IV ×2 (13:50→14:12)
[2021-01-17] MEDS: Ondansetron 4 MG/2 ML Vial IV (13:51)
--- NOTE | 2021-01-17 13:57 | PCM.HP.STD ---
HPI - General HPI Narrative The patient is a 65 y/o F w/ PMHx: Fe deficiency anemia, Seizure disorder, PAF, HTN, HLD, Morbid obesity, Migraines, RLS, Diabetes mellitus type II with gastroparesis w/ History of cyclical N/V, Diastolic CHF, Hx Takotsubo's Cardiomyopathy, History of PE, ? Hx CVA, Rheumatoid arthritis, Chronic pain syndrome recently admitted 12/23/20 eventually transferred 12/27/20 to [facility] secondary to concerns of underlying seizure activity; however, per report may have been concerns for PRES although patient keppra was reportedly increased also with D/C to SNF now re-presenting to the [facility] ED on 01/17/21 secondary to ongoing nausea, occasional emesis and vague generalized aching abdominal discomfort, rated 2/10 current upon presentation and points to the entire abdomen when questioned about location with no specific dysuria, fever or chills. She had presented to the outside hospital ED at [place] with similar complaints this prior Saturday however no imaging was performed and she was discharged back to skilled facility. She denies any recent loose stools. Patient states that she has felt mildly dyspneic, worse with exertion but no worsening lower extremity edema but does admit to some orthopnea over the last week, more notable over the last 24 to 48 hours. Patient denies any associated chest discomfort. Work-up in the ED included T 97.7, heart rate 76, BP 156/63, respiratory rate 27, 97% on 4 L nasal cannula, CBC with WBC 12.9, hemoglobin 9.2, platelet 262 with left shift, CMP with sodium 130, chloride 90, BUN/creatinine 9/1.02, glucose 118, lactic acid 0.6, alk phos 155 otherwise not marked appearing hepatic profile, troponin less than 0.015, BNP 285.9, lipase 57, urinalysis with urine protein 30, urine ketone 50, urine occult blood 150, urine nitrite negative, urine leukocyte esterase 500, urine WBCs greater than 100 however no significant urine bacteria noted, CT brain without acute intracranial findings, Cardiomegaly and mild degree of CHF, CT A/P w/ new small bilateral pleural effusions, nonspecific mild degree of bilateral perinephric stranding, LUE DVT US unremarkable with no DVT evident as PICC line in place. In the ED Robb catheter placed, patient ministered IV Rocephin as well as IV Lasix 40 mg x 1. PFSH Medical History (Updated 01/17/21 @ 14:[address] Sandra Burks MD) Abdominal pain Benign essential HTN Candidiasis of breast Chronic pain syndrome Depression Diabetic gastroparesis Diabetic gastroparesis Diabetic infection of right foot Diverticulitis Fibromyalgia Fibromyalgia GERD (gastroesophageal reflux disease) Hammer toe of left foot Hammer toe of right foot History of CVA (cerebrovascular accident) HLD (hyperlipidemia) Iron deficiency anemia Morbid obesity with BMI of 40.0-44.9, adult NSTEMI (non-ST elevated myocardial infarction) QIAN (obstructive sleep apnea) Paroxysmal atrial fibrillation Restless leg syndrome Rheumatoid arthritis Seizure disorder Sepsis Takotsubo cardiomyopathy Takotsubo cardiomyopathy Thyroid disease Toe osteomyelitis, right Type 2 diabetes mellitus 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 2 diabetes mellitus with diabetic polyneuropathy Ulcer of right foot Ulcer of right foot with fat layer exposed UTI (urinary tract infection) Home Medications levothyroxine 75 mcg PO DAILY 09/17/18 [History Last Taken 06/20/19 10:00] hydroxychloroquine 200 mg PO BIDCM 11/30/18 [History Last Taken 06/20/19 10:00] allopurinol 100 mg tablet 100 mg PO QHS tab 03/30/19 [History Last Taken 06/19/19 23:00] ondansetron HCl 8 mg PO Q6H PRN PRN 08/29/20 [History Last Taken Unknown] promethazine 25 mg PO TID PRN 10/27/20 [History Last Taken Unknown] acetaminophen [Tylenol] 650 mg PO Q6H PRN 01/17/21 [History Last Taken 01/16/21 23:29] aspirin 81 mg PO DAILY 01/17/21 [History Last Taken 01/17/21 08:00] atorvastatin 20 mg PO QHS 01/17/21 [History Last Taken 01/16/21] beclomethasone dipropionate 1 spray INTRANASAL BID 01/17/21 [History Last Taken 01/17/21] duloxetine 60 mg PO DAILY 01/17/21 [History Last Taken 01/17/21] furosemide [Lasix] 20 mg PO BID 01/17/21 [History Last Taken 01/17/21] insulin regular human [Novolin R Flexpen] 10 unit SUBCUT TIDCM 01/17/21 [History Last Taken 01/16/21] labetalol 100 mg PO BID 01/17/21 [History Last Taken 01/17/21] loperamide [Imodium A-D] 2 mg PO TID 01/17/21 [History Last Taken 01/14/21 11:56] minoxidil 2.5 mg PO DAILY 01/17/21 [History Last Taken 01/17/21] multivitamin [Daily-Jessica] 1 tab PO DAILY 01/17/21 [History Last Taken 01/17/21] oxymetazoline 2 spray INTRANASAL Q12H PRN 01/17/21 [History Last Taken 01/17/21] Allergy/AdvReac Type Severity Reaction Status Date / Time ciprofloxacin [From Cipro] Allergy short of Verified 01/17/21 10:04 breath cyclobenzaprine Allergy rash Verified 01/17/21 10:04 levofloxacin [From Levaquin] Allergy PT UNSURE Verified 01/17/21 10:04 OF REACTION sulfamethoxazole Allergy itch Verified 01/17/21 10:04 topiramate Allergy PT UNSURE Verified 01/17/21 10:04 OF REACTION trimethoprim Allergy itch Verified 01/17/21 10:04 valacyclovir [From Valtrex] Allergy other Verified 01/17/21 10:04 ketorolac [From Toradol] AdvReac Other Verified 01/17/21 10:04 Family History Mother Myocardial infarction Asthma Diabetes Father Congestive heart failure Other Heart disease Surgical History history left foot surgery History of cholecystectomy History of knee surgery History of left heart catheterization (03/09/19) Social History (Updated 01/17/21 @ 14:[address] Sandra Burks MD) household members: none housing: long term Smoking Status: Never smoker alcohol intake: never substance use type: does not use ROS ROS Narrative Admission Review of Systems: CONSTITUTIONAL: No weight loss, fever, chills, + weakness or fatigue. HEENT: Eyes: No visual loss, blurred vision, double vision or yellow sclerae. Ears, Nose, Throat: No hearing loss, sneezing, congestion, runny nose or sore throat. SKIN: No rash or itching, lesions, wounds. CARDIOVASCULAR: + Orthopnea, edema. No chest pain, chest pressure or chest discomfort, palpitations, syncopal events. RESPIRATORY: + shortness of breath, No marked cough or sputum, wheezing, hemoptysis. GASTROINTESTINAL:+ anorexia, nausea, vomiting, abdominal pain, No diarrhea, melena, BRBPR. GENITOURINARY: No dysuria, frequency, urgency or retention. NEUROLOGICAL: No headache, dizziness, syncope, paralysis, ataxia, numbness or tingling in the extremities, focal weakness, change in bowel or bladder control, seizure. MUSCULOSKELETAL: + muscle, back pain, joint pain or stiffness. HEMATOLOGIC: + anemia, bleeding or bruising. LYMPHATICS: No enlarged nodes. No history of splenectomy. PSYCHIATRIC: + history of depression or anxiety. ENDOCRINOLOGIC: No reports of sweating, cold or heat intolerance. No polyuria or polydipsia. ALLERGIES: No history of asthma, hives, eczema or rhinitis. Vital Signs Vital Signs Vital Signs: 01/17/21 10:05 01/17/21 12:04 01/17/21 13:14 Temperature 98.1 F 98.8 F 97.7 F L Temperature Source Temporal Temporal Temporal Pulse Rate 78 74 76 Respiratory Rate 18 17 27 H Blood Pressure 158/60 H 148/86 H 156/63 H Blood Pressure Mean 92 106 94 Pulse Ox 97 98 98 Oxygen Delivery Method Nasal Cannula Nasal Cannula Room Air Oxygen Flow Rate (L/min) 4 4 Weight Weight: 322 lb 8.58 oz Body Mass Index (BMI) 52.0 Physical Exam Narrative Physical Examination: General: awake, alert, oriented x 3 and cooperative, seated upright in the ED bed, fatigued and ill appearing, increased RR. Skin: normal color, normal turgor, no icterus, no cyanosis. HEENT: AT/NC, EOMI, PERRLA, mpderately dry MM, no carotid bruits, difficult to assess JVD secondary to thickened neck. Lungs: Diminished BS BL, > bases, mild rales, mildly increased RR, no ronchi or wheezing. Heart: Regular rate and rhythm; no gallop, rub audible. Abdomen: soft, morbidly obese, no rebound or guarding despite complaint of disocomfort, difficult to discern distention given habitus, distant mildly hyperactive BS, unable to discern HSM secondary to habitus. Extremities: no cyanosis, no clubbing, mild pedal non-pitting edema, noted BL UE, L > R edema, s/p recent PICC, DVT US negative as noted. Neurological: patient awake, alert, oriented as noted, cognitive function intact; pupils equally reactive to light and accommodation, cranial nerves II-XII grossly normal, moving all 4 extremities, no focal deficits, strength severely globally decreased secondary to acute presentation and underlying comorbidities. Psychiatric: affect appears fatigued, ill appearing, no acute evidence of depressive or anxiety feelings. Lab / Micro Data Result Diagrams: 01/17/21 10:51 01/17/21 10:51 Labs: Laboratory Results - last 24 hr 01/17/21 01/17/21 01/17/21 10:51 10:51 10:51 WBC 12.9 H RBC 3.44 L Hgb 9.2 L Hct 28.5 L MCV 82.8 D MCH 26.7 L MCHC 32.3 D RDW Std Deviation 39.7 RDW Coeff of Be 13.1 Plt Count 262 MPV 9.0 Immature Gran % (Auto) 0.400 Neut % (Auto) 84.0 H Lymph % (Auto) 6.9 L [place] % (Auto) 5.7 Eos % (Auto) 2.7 Baso % (Auto) 0.3 Absolute Neuts (auto) 10.8 H Absolute Lymphs (auto) 0.89 Nucleated RBC % 0 Sodium 130 L Potassium 4.1 Chloride 90 L Carbon Dioxide 31.0 Anion Gap 9 BUN 9 Creatinine 1.02 Estim Creat Clear Calc 50.79 Est GFR (MDRD) Af Amer 70 Est GFR (MDRD) Non-Af 58 L BUN/Creatinine Ratio 8.8 L Glucose 118 H Lactic Acid 0.6 Calcium 8.5 Total Bilirubin 1.00 AST 29 ALT 36 Alkaline Phosphatase 155 H Troponin I < 0.015 B-Natriuretic Peptide Total Protein 7.0 Albumin 2.5 L Globulin 4.5 H Albumin/Globulin Ratio 0.6 L Lipase 57 L Urine Color Urine Clarity Urine pH Ur Specific [place] Urine Protein Urine Glucose (UA) Urine Ketones Urine Occult Blood Urine Nitrite Urine Bilirubin Urine Urobilinogen Ur Leukocyte Esterase Urine RBC Urine WBC Ur Squamous Epith Cells Urine Bacteria Urine Mucus 01/17/21 01/17/21 10:51 13:00 WBC RBC Hgb Hct MCV MCH MCHC RDW Std Deviation RDW Coeff of Be Plt Count MPV Immature Gran % (Auto) Neut % (Auto) Lymph % (Auto) [place] % (Auto) Eos % (Auto) Baso % (Auto) Absolute Neuts (auto) Absolute Lymphs (auto) Nucleated RBC % Sodium Potassium Chloride Carbon Dioxide Anion Gap BUN Creatinine Estim Creat Clear Calc Est GFR (MDRD) Af Amer Est GFR (MDRD) Non-Af BUN/Creatinine Ratio Glucose Lactic Acid Calcium Total Bilirubin AST ALT Alkaline Phosphatase Troponin I B-Natriuretic Peptide 285.9 H Total Protein Albumin Globulin Albumin/Globulin Ratio Lipase Urine Color Yellow Urine Clarity Cloudy Urine pH 6.0 Ur Specific [place] 1.015 Urine Protein 30 H Urine Glucose (UA) Normal Urine Ketones 50 H Urine Occult Blood 150 H Urine Nitrite Negative Urine Bilirubin Negative Urine Urobilinogen Normal Ur Leukocyte Esterase 500 H Urine RBC 0 SEEN Urine WBC >100 SEEN Ur Squamous Epith Cells 0 SEEN Urine Bacteria 0 SEEN Urine Mucus 0 SEEN Radiology Impression Venous Doppler Study 01/17/21 10:15 Interpretation Summary No evidence for acute deep venous thrombosis[left] upper extremity with patent and compressible cephalic and basilic veins. Technical difficulties noted secondary to patient body habitus. Ordering Physician: Robe Root Performed By: Jose Manuel Stack, RVT ? Abdomen/Pelvis CT 01/17/21 10:16 IMPRESSION: New small bilateral pleural effusions. Nonspecific mild degree of bilateral perinephric stranding. Electronically Signed: Tristan De La Garza MD at 12:21 EDT , Service support , Brain CT 01/17/21 10:18 IMPRESSION: Normal unenhanced CT scan of the brain. Electronically Signed: Tristan De La Garza MD at 12:22 EDT , Service support , Chest X-Ray 01/17/21 11:20 IMPRESSION: Cardiomegaly and mild degree of CHF. Electronically Signed: Tristan De La Garza MD at 12:01 EDT , Service support , Assessment & Plan Assessment/Plan (1) Intractable nausea and vomiting: (2) Acute UTI: (3) CHF (congestive heart failure): QUALIFIERS: Heart failure type: diastolic Heart failure chronicity: acute Qualified Code(s): I50.31 - Acute diastolic (congestive) heart failure PLAN: The patient is a 65 y/o F w/ PMHx: Fe deficiency anemia, Seizure disorder, PAF, HTN, HLD, Morbid obesity, Migraines, RLS, Diabetes mellitus type II with gastroparesis w/ History of cyclical N/V, Diastolic CHF, Hx Takotsubo's Cardiomyopathy, History of PE, ? Hx CVA, Rheumatoid arthritis, Chronic pain syndrome recently admitted 12/23/20 eventually transferred 12/27/20 to [facility] secondary to concerns of underlying seizure activity; however, per report may have been concerns for PRES although patient keppra was reportedly increased also with D/C to SNF now re-presenting to the [facility] ED on 01/17/21 secondary to ongoing nausea, occasional emesis and vague generalized aching abdominal discomfort, rated 2/10 current upon presentation and points to the entire abdomen when questioned about location with no specific dysuria, fever or chills. 1. Generalized abdominal discomfort with intractable nausea and emesis suspected multifactorial, Acute Urinary Tract Infection, complicated by underlying history of gastroparesis with diabetes mellitus type 2: Will admit to PCU, UA upon ED evaluation remarkable, pending UCx, CT A/P with noted perinephric stranding and notable urine WBC, UCx pending, folcey placed in the ED, monitor I/Os, continue IV Rocephin w/ transition as able pending sensitivities and speciation. As noted #3, placing on scheduled reglan and will also place on PPI IV pending oral intake assessment. 2. Questionable Acute Decompensated Diastolic CHF/Hx Takotsubo's Cardiomyopathy: CXR obtained in the ED w/ cardiomegaly and mild degree of CHF with patient complaints of dyspnea, orthopnea. Patient administered IV lasix in the ED, will maintain on cardiac telemetry, obtain cardiac enzyme series, obtain serial EKGs, given patient diuresis with IV Lasix in the ED and presentation with some concern for at the same time poor oral intake ability will dose IV Lasix daily only and low threshold to transition back to oral regimen pending further assessment in a.m., monitor I/Os, continue medical therapy, most recent ECHO noted approximately 1 year prior, will request repeat. 3. Diabetes mellitus type II with gastroparesis: Hold oral home regimen, continue home insulin regimen although may alter pending oral intake, discussed oral intake potential at length and will place on ADA diet with patient to choose what sounds most appetizing however if difficulties will transition to clear liquids, maintain on IV reglan given increased N/V, accu checks w/ ISS. 4. Rheumatoid arthritis: We will continue patient home Plaquenil regimen. 5. Chronic pain syndrome, neuropathy, fibromyalgia: Encourage positional changes, fall precautions, as needed low-dose oxycodone. 6. Anxiety and depression/questionable bipolar disorder: We will continue home Cymbalta regimen. 7. Hypertension: Continue home regimen including Coreg, lasix with hold parameters as noted, low threshold to transition back to oral regimen given #1, PRN hydralazine. 8. Gout: We will continue patient home allopurinol regimen. 9. Hyperlipidemia: Continue home statin regimen. 10. Hypothyroidism: Continue home synthroid regimen. 11. RLS: We will continue patient home Requip regimen. 12. Chronic anemia, Iron deficiency anemia: Admission hemoglobin 9.2, 01/14/21 Hgb 9.7, stable. 13. Seizure disorder: Patient with recent prolonged admission eventually transferred for concern for 24-hour EEG needs, eventually per report diagnosed with PRES, clarifying AED regimen. 14. DVT prophylaxis: SCDs, Lovenox. 15. CODE status: Patient BRISA is her sister Linda and living will is currently in place. Discussed CODE status at length including difference between FULL code, DNR-CCA and DNR-CC status. Following discussions about the differences in these status, requested Full Code status. Advanced Care Planning Face to Face Time: 16 minutes. Visit Charges Inpatient E&M: 49110 Init Hosp L3 Procedures Hospitalists Procedures: 52447 Advncd Care Plan 30 Min
[2021-01-17] MEDS: Ceftriaxone 1 GM/50 ML BAG IV (14:13)
--- NOTE | 2021-01-17 14:15 | NURSING ---
PCU WHITE INTRACTABLE NV, UTI, CHF
[2021-01-17] MEDS: Furosemide 40 MG/4 ML Vial IV (14:22)
[2021-01-17 14:26] LABS: Magnesium 1.1 mg/dL (1.6-2.6)
[2021-01-17 15:38] LABS: Procalcitonin 0.13 ng/mL (0.00-0.09)
--- NOTE | 2021-01-17 15:54 | NURSING ---
Sister, Linda, aware of patient admit to PCU
--- NOTE | 2021-01-17 16:51 | ECHOCS_ITS ---
Reason For Study: CHF Procedure This was a 2D Doppler, Color Flow transthoracic echocardiogram. The study was technically difficult. Exam performed portable in patient room. Left Ventricle Normal LV size. Left ventricular systolic function is normal. The estimated ejection fraction is 60 %. No regional wall motion abnormalities noted. Right Ventricle Normal RV size. Normal systolic function. Atria Normal left atrium. Normal right atrium. Mitral Valve Normal mitral valve. Tricuspid Valve The tricuspid valve is not well visualized. Mild (1+) tricuspid valve insufficiency. Pulmonary artery systolic pressure is 32 mmHg. Aortic Valve Normal aortic valve. Trisinus/trileaflet aortic valve. Peak aortic valve gradient 26 mmHg. Mean aortic valve gradient 13 mmHg. Pulmonic Valve Normal pulmonic valve. Great Vessels Normal aortic root. The pulmonary artery is normal size. Normal inferior vena cava. Pericardium/Pleural No pericardial effusion. Medication Diluted definity 2ml given slow IV push to enhance endocardial definition. MMode/2D Measurements & Calculations LVIDd: 5.2 cm IVSd: 1.2 cm LVOT diam: 2.3 cm LVIDs: 2.9 cm LVPWd: 1.2 cm RVDd: 3.6 cm FS: 43.1 % LVOT area: 4.0 cm2 Ao root diam: 3.4 cm LAV(MOD-bp): 118.1 ml LVAd ap4: 39.7 cm2 LAV(MOD-bp) Indexed: 48.9 ml/m2 LVLd ap4: 8.2 cm LAV(MOD-sp2): 110.1 ml EDV(MOD-sp4): 149.6 ml LAV(MOD-sp4): 112.5 ml EDV(sp4-el): 163.1 ml LVAs ap4: 18.8 cm2 LVLs ap4: 6.2 cm ESV(MOD-sp4): 45.1 ml ESV(sp4-el): 48.5 ml EF(MOD-sp4): 69.9 % EF(sp4-el): 70.2 % LVAd ap2: 32.3 cm2 SV(MOD-sp4): 104.5 ml SV(MOD-sp2): 76.4 ml LVLd ap2: 7.6 cm EDV(MOD-sp2): 113.0 ml EDV(sp2-el): 116.9 ml LVAs ap2: 17.0 cm2 LVLs ap2: 6.4 cm ESV(MOD-sp2): 36.6 ml ESV(sp2-el): 38.2 ml EF(MOD-sp2): 67.6 % SV(sp4-el): 114.5 ml LA dimension(2D): 4.9 cm LA A4 area: 31.0 cm2 RA A4 area: 19.6 cm2 Doppler Measurements & Calculations MV E max nemo: 150.8 cm/sec Ao V2 max: 255.4 cm/sec LV V1 max: 138.3 cm/sec MV A max nemo: 136.7 cm/sec Ao max P.1 mmHg LV V1 max P.7 mmHg MV E/A: 1.1 Ao V2 mean: 167.8 cm/sec LV V1 mean P.1 mmHg Ao mean P.9 mmHg LV V1 mean: 96.0 cm/sec Ao V2 VTI: 52.3 cm LV V1 VTI: 32.2 cm RANDY(I,D): 2.5 cm2 RANDY(V,D): 2.2 cm2 SV(LVOT): 128.3 ml PA V2 max: 141.0 cm/sec TR max nemo: 268.5 cm/sec TR max P.8 mmHg ECHO/Echo Complete W/ Contrast Interpretation Summary Normal LV size. Left ventricular systolic function is normal. The estimated ejection fraction is 60 %. Pulmonary artery systolic pressure is 32 mmHg. Structurally normal valves. Contrast injection was performed. Ordering Physician: Sandra Burks Referring Physician: Devan Parks Performed By: Preethi Bell RDCS
[2021-01-17] MEDS: proCHLORPERazine 10 MG/2 ML Vial 5 MG IV ×2 (18:18→23:23)
[2021-01-17 18:30] LABS: Bedside Glucose 116 mg/dL (70-110)
[2021-01-17] MEDS: Albuterol 2.5 MG/3 ML VIAL.NEB. INHALATION (19:10)
[2021-01-17] MEDS: Budesonide Respules 0.5 MG/2 ML AMPUL.NEB. INHALATION (19:11)
[2021-01-17] MEDS: proMETHazine 25 MG/ML Syringe 6.25 MG IM (20:08)
[2021-01-17] MEDS: Enoxaparin 40 MG/0.4 ML Syringe SC (21:03)
[2021-01-17] MEDS: Loperamide 2 MG Capsule PO (21:05)
[2021-01-17] MEDS: Acetaminophen 325 MG Tablet 650 MG PO (21:05)
[2021-01-17] MEDS: Labetalol 100 MG Tablet PO (21:05)
[2021-01-17] MEDS: Allopurinol 100 MG Tablet PO (21:05)
[2021-01-17] MEDS: Atorvastatin Calcium 20 MG Tablet PO (21:06)
[2021-01-17] MEDS: Metoclopramide 10 MG/2 ML Vial 5 MG IV (21:06)
[2021-01-17 21:10] LABS: Bedside Glucose 108 mg/dL (70-110)
[2021-01-17] MEDS: Menthol/Lanolin/Calamine/Znox 113 GM Tube 1 APPLIC TOPICAL (21:43)
[2021-01-18] VITALS (11 sets, daily range): BP systolic 142–168; BP diastolic 48–67; PULSE 68–86; RESP 12–20; TEMP 36.9–37.3; O2SAT 94–97
[2021-01-18] MEDS: Ondansetron 4 MG/2 ML Vial IV ×2 (01:17→09:17)
[2021-01-18 05:34] LABS: Absolute Lymphocyte Count 0.95 X10^3/uL (0.83-4.51); Absolute Neutrophil Count 9.4 X10^3/uL (2.0-7.7); Basophil# 0.04 X10^3/uL; Basophil% 0.3 % (0-1); Eosinophil# 0.31 X10^3/uL; Eosinophils% 2.7 % (0-5); Hematocrit 27.3 % (37-47); Hemoglobin 8.8 g/dL (12.0-15.0); Lymphocyte # 0.95 X10^3/ul (0.83-4.51); Lymphocyte % 8.2 % (19-41); Mean Corp Hgb Conc 32.2 g/dL (32-36); Mean Corpuscular Hgb 27.1 pg (27.0-32.0); Mean Platelet Vol. 8.7 fl (6.2-12.0); Monocyte% 6.9 % (0-10); NRBC Flagged by Analyzer 0 % (0-5); Neutrophil # 9.37 X10^3/uL (2.7-7.7); Neutrophil % 81.4 % (47-70); Platelet Count 241 K/mm3 (150-450); RBC Distribution Width CV 13.2 % (11.6-14.6); RBC Distribution Width SD 40.4 fl (35.1-43.9); Red Blood Count 3.25 M/mm3 (4.2-5.4); White Blood Count 11.5 K/mm3 (4.4-11.0)
--- NOTE | 2021-01-18 05:55 | EKG12_ITS ---
Test Reason : AM EKG Blood Pressure : / mmHG Vent. Rate : 077 BPM Atrial Rate : 077 BPM P-R Int : 148 ms QRS Dur : 088 ms QT Int : 438 ms P-R-T Axes : 021 -33 022 degrees QTc Int : 495 ms Normal sinus rhythm Left axis deviation Prolonged QT Abnormal ECG When compared with ECG of 17-JAN-2021 10:28, MANUAL COMPARISON REQUIRED, DATA IS UNCONFIRMED Confirmed by ABIMAEL CURRY, CAROLE ([id number]), news video editor VIDAL MCDERMOTT ([id number]) on 01/19/2021 12:41:53 PM Referred By: ELKE Confirmed By:CAROLE VARGHESE MD
[2021-01-18 06:03] LABS: ALB/GLOB Ratio 0.6 RATIO (0.9-2.4); AST(SGOT) 15 U/L (15-37); Alanine Aminotransfer ALT/SGPT 28 U/L (13-56); Albumin, Serum 2.5 g/dL (3.2-5.0); Alkaline Phosphatase 147 U/L (45-117); Anion Gap 10 (5-15); BUN 10 mg/dL (7-18); BUN/Creat Ratio 10.2 RATIO (10-20); Chloride 91 mmol/L (98-107); Cholesterol 79 mg/dL (200); Creatinine, Serum 0.98 mg/dL (0.55-1.02); EST Glomerular Filtration Rate 60 mL/min (>60); Est Glom Filt Rate - Afr Amer 73 mL/min (>60); Estimated Creatinine Clearance 52.86 ml/min; Glucose 104 mg/dL (74-106); High Density Lipoprotein 39 mg/dL; Potassium 3.5 mmol/L (3.5-5.1); Protein, Total 6.5 g/dL (6.4-8.2); Sodium Level 133 mmol/L (136-145); Triglycerides 87 mg/dL; Very Low Density Lipoprotein 17 mg/dL (5-40)
[2021-01-18] MEDS: Metoclopramide 10 MG/2 ML Vial 5 MG IV ×3 (06:22→21:38)
[2021-01-18] MEDS: 0.9% Saline Lock 10 ML Syringe IV ×4 (06:24→21:39)
[2021-01-18 06:30] LABS: Bedside Glucose 95 mg/dL (70-110)
[2021-01-18] MEDS: Budesonide Respules 0.5 MG/2 ML AMPUL.NEB. INHALATION ×2 (06:43→20:05)
--- NOTE | 2021-01-18 08:18 | PN.HOSP_ITS ---
Subjective Subjective Patient is a 65-year-old lady with multiple comorbidities admitted with abdominal discomfort with nausea and vomiting. CT of the abdomen and pelvis obtained on admission demonstrated nonspecific mild degree of bilateral perinephric stranding. Patient was also noted to have small bilateral pleural effusions. Her urinalysis obtained was consistent with acute cystitis. Admitted to a monitored bed for further management Objective Data Objective Data Vital Signs: Vital Signs Temp Pulse Resp BP Pulse Ox 98.7 F 81 12 149/67 H 94 01/18/21 02:56 01/18/21 07:00 01/18/21 06:45 01/18/21 02:56 01/18/21 06:45 Oxygen Flow Rate (L/min) 2 Oxygen Delivery Method Nasal Cannula Weight: 142.6 kg Body Mass Index (BMI) 50.4 Intake & Output: Intake and Output for Last 24 Hours 01/16/21 01/17/21 01/18/21 23:59 23:59 23:59 Intake Total 1515 / 1515 Output Total 2700 / 2700 300 / 300 Balance -1185 / -1185 -300 / -300 Lab / Micro Data Result Diagrams: 01/18/21 05:24 01/18/21 05:24 Radiography Diagnostic Testing: Radiology Impression Venous Doppler Study 01/17/21 10:15 Interpretation Summary No evidence for acute deep venous thrombosis[left] upper extremity with patent and compressible cephalic and basilic veins. Technical difficulties noted secondary to patient body habitus. Ordering Physician: Robe Root Performed By: Jose Manuel Stack RVT ? Abdomen/Pelvis CT 01/17/21 10:16 IMPRESSION: New small bilateral pleural effusions. Nonspecific mild degree of bilateral perinephric stranding. Electronically Signed: Tristan De La Garza MD at 12:21 EDT , Service support , Brain CT 01/17/21 10:18 IMPRESSION: Normal unenhanced CT scan of the brain. Electronically Signed: Tristan De La Garza MD at 12:22 EDT , Service support , Chest X-Ray 01/17/21 11:20 IMPRESSION: Cardiomegaly and mild degree of CHF. Electronically Signed: Tristan De La Garza MD at 12:01 EDT , Service support , Physical Exam Narrative GENERAL: cooperative but significantly flat affect HEENT: Atraumatic; EYES; Anicteric, Normal Conjunctiva NECK; supple, normal thyroid, RESPIRATORY: Diminished to auscultation CARDIOVASCULAR: Regular S1 S2, GI: soft, normoactive bowel sounds, : No Renal angle tenderness; EXTREMITIES: Trace bipedal edema, no clubbing, MUSCULOSKELETAL: no muscle waisting NEURO: Awake; no lateralizing signs. SKIN: No Rash PSYCH; Flat affect Assessment & Plan Assessment/Plan (1) Intractable nausea and vomiting: (2) Acute UTI: (3) CHF (congestive heart failure): QUALIFIERS: Heart failure chronicity: acute Heart failure type: diastolic Qualified Code(s): I50.31 - Acute diastolic (congestive) heart failure PLAN: Patient is a 65-year-old lady with multiple comorbidities admitted with abdominal discomfort with nausea and vomiting. CT of the abdomen and pelvis obtained on admission demonstrated nonspecific mild degree of bilateral perinephric stranding. Patient was also noted to have small bilateral pleural effusions. Her urinalysis obtained was consistent with acute cystitis. Admitted to a monitored bed for further management 1. Acute pyelonephritis ?Presented with abdominal pain CT of the abdomen demonstrated mild degree of bilateral perinephric stranding. Patient was started on ceftriaxone culture sent 2. Acute on chronic congestive heart failure with preserved ejection fraction ?Patient started on Lasix with monitoring of electrolytes, strict input and output and daily weight 3. Hypertension - Blood pressure controlled, home medications continued with dose adjustment as needed 4. Questionable seizure ?Patient was apparently transferred to [facility] for 24 EEG monitoring. 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 Hypothyroidism - Patient is on levothyroxine home dose continued 6. Rheumatoid arthritis ?Patient is on hydroxychloroquine 7. Gout ?Patient is on allopurinol 8. Diabetes mellitus type II -Placed on long acting insulin, Accu-Cheks a.c. and at bedtime and covered with sliding scale insulin 9. Morbid obesity - With a BMI of 50.7 patient was counseled on weight reduction 10. Depression with anxiety ?Patient apparently also has fibromyalgia and chronic pain syndrome. Patient is on Cymbalta 11. History of stress-induced cardiomyopathy (Takotsubo cardiomyopathy) ?Stable 12. Anemia - Secondary to chronic disorder monitoring H&H and transfuse if patient becomes symptomatic or hemoglobin falls below 7 13. Dyslipidemia -Patient is on statin therapy, continued at home dose 14. Restless leg syndrome ?Patient is on Requip 15. Physical deconditioning - Requested for PT OT eval and community mental health social worker to assist with discharge planning 16. DVT prophylaxis SCDs, Marynox. Visit Charges Inpatient E&M: 63570 Subs Hosp L3
[2021-01-18] MEDS: Hydroxychloroquine 200 MG Tablet PO (09:25)
[2021-01-18] MEDS: Labetalol 100 MG Tablet PO ×2 (09:25→21:35)
[2021-01-18] MEDS: Levothyroxine 75 MCG Tablet PO (09:26)
[2021-01-18] MEDS: Aspirin 81 MG TAB.CHEW PO (09:26)
[2021-01-18] MEDS: Menthol/Lanolin/Calamine/Znox 113 GM Tube 1 APPLIC TOPICAL ×2 (09:26→21:36)
[2021-01-18] MEDS: DULoxetine Hcl 60 MG Capsule PO (09:26)
[2021-01-18] MEDS: Minoxidil 2.5 MG Tablet PO (09:26)
[2021-01-18] MEDS: Acetaminophen 325 MG Tablet 650 MG PO ×3 (09:26→21:41)
[2021-01-18] MEDS: Furosemide 40 MG/4 ML Vial IV (09:27)
[2021-01-18] MEDS: Enoxaparin 40 MG/0.4 ML Syringe SC ×2 (09:27→21:38)
[2021-01-18] MEDS: Ceftriaxone 1 GM/50 ML BAG IV (09:39)
--- NOTE | 2021-01-18 10:24 | CASEMGMT ---
Readmission chart review: Pt was admitted to [facility] ICU 12/23-12/26/20 for Severe sepsis. During that visit, pt had AMS and an EEG was completed which was abnormal and SOC recommended transfer to a facility for continuous EEG monitoring. Pt was transferred to [facility] at that time. Pt did not qualify for palliative referral during that admission. Pt returned to [facility] ED from [facility] on 01/17/21 for N/V/D, abd pain x 1week. Pt admitted for CHF exac, UTI. Pt was seen at [place] ED this past 01/14/21 for same and was discharged from ED back to SNF at that time. Olman ROCHA aware that pt from [facility], voices understanding. Pt does have AD on file at [facility] and her sister, Linda, is listed as HPOA. CM to follow for any further discharge planning/needs. Nilson MARQUEZ CM
[2021-01-18 11:10] LABS: Bedside Glucose 124 mg/dL (70-110)
--- NOTE | 2021-01-18 11:45 | CASEMGMT ---
AJ reviewed chart, pt is here from [facility]. SW called [facility], pt is there skilled and will need a new precert to return. [facility] is starting to think that pt may need residential as pt is not progressing. SW spoke w/pt in room, pt confirms that she plans to return to the [facility] at discharge. Pt still plans to return home eventually, and is not planning on staying residential. AJ faxed updates to [facility], will need to send PT/OT updates tomorrow as pt did not fully participate in therapy today. AJ will continue to follow. ARGENTINA Brownlee
[2021-01-18] MEDS: proMETHazine 25 MG/ML Syringe 6.25 MG IM ×2 (11:47→16:12)
--- NOTE | 2021-01-18 14:58 | NURSING ---
wound photo: left medial heel
--- NOTE | 2021-01-18 14:59 | NURSING ---
wound photo: left 3rd toe
--- NOTE | 2021-01-18 15:00 | NURSING ---
wound photo: left plantar foot at base of great toe
--- NOTE | 2021-01-18 15:02 | NURSING ---
wound photo: right lower back/upper buttock
[2021-01-18 16:20] LABS: Bedside Glucose 116 mg/dL (70-110)
[2021-01-18] MEDS: Albuterol 2.5 MG/3 ML VIAL.NEB. INHALATION (20:05)
[2021-01-18] MEDS: Loperamide 2 MG Capsule PO (21:35)
[2021-01-18] MEDS: Allopurinol 100 MG Tablet PO (21:35)
[2021-01-18] MEDS: Insulin NPH Human 100 UNITS/ML PEN 75 UNITS SC (21:37)
[2021-01-18] MEDS: Atorvastatin Calcium 20 MG Tablet PO (21:38)
[2021-01-18] MEDS: Insulin Lispro 100 UNIT/ML INSULN.PEN SC (21:45)
[2021-01-18 22:05] LABS: Bedside Glucose 193 mg/dL (70-110)
[2021-01-19] VITALS (10 sets, daily range): BP systolic 99–159; BP diastolic 32–54; PULSE 65–99; RESP 18–20; TEMP 36.4–37.3; O2SAT 94–99
[2021-01-19] MEDS: Ondansetron 4 MG/2 ML Vial IV ×3 (00:58→20:07)
[2021-01-19] MEDS: 0.9% Saline Lock 10 ML Syringe IV ×6 (00:58→21:49)
[2021-01-19] MEDS: Morphine 2 MG/ML Syringe IV ×2 (00:58→21:50)
[2021-01-19 03:45] LABS: Bedside Glucose 118 mg/dL (70-110)
[2021-01-19] MEDS: Loperamide 2 MG Capsule PO ×3 (05:59→22:07)
[2021-01-19] MEDS: Metoclopramide 10 MG/2 ML Vial 5 MG IV ×3 (05:59→21:48)
[2021-01-19] MEDS: Levothyroxine 75 MCG Tablet PO (05:59)
[2021-01-19] MEDS: Acetaminophen 325 MG Tablet 650 MG PO ×2 (06:32→12:06)
[2021-01-19 06:35] LABS: Bedside Glucose 101 mg/dL (70-110)
[2021-01-19 07:14] LABS: Absolute Lymphocyte Count 1.18 X10^3/uL (0.83-4.51); Absolute Neutrophil Count 8.8 X10^3/uL (2.0-7.7); Basophil# 0.07 X10^3/uL; Basophil% 0.6 % (0-1); Eosinophil# 0.32 X10^3/uL; Eosinophils% 2.8 % (0-5); Hemoglobin 8.7 g/dL (12.0-15.0); Lymphocyte # 1.18 X10^3/ul (0.83-4.51); Lymphocyte % 10.2 % (19-41); Mean Corp Hgb Conc 32.2 g/dL (32-36); Mean Corpuscular Hgb 26.8 pg (27.0-32.0); Mean Corpuscular Volume 83.1 fL (81-99); Mean Platelet Vol. 9.7 fl (6.2-12.0); Monocyte# 1.17 X10^3/uL; Monocyte% 10.1 % (0-10); NRBC Flagged by Analyzer 0 % (0-5); Neutrophil # 8.76 X10^3/uL (2.7-7.7); Neutrophil % 75.9 % (47-70); Platelet Count 266 K/mm3 (150-450); RBC Distribution Width CV 13.4 % (11.6-14.6); RBC Distribution Width SD 40.8 fl (35.1-43.9); Red Blood Count 3.25 M/mm3 (4.2-5.4); White Blood Count 11.6 K/mm3 (4.4-11.0)
[2021-01-19] MEDS: Albuterol 2.5 MG/3 ML VIAL.NEB. INHALATION (07:36)
[2021-01-19] MEDS: Budesonide Respules 0.5 MG/2 ML AMPUL.NEB. INHALATION (07:36)
[2021-01-19 07:41] LABS: Anion Gap 5 (5-15); BUN 9 mg/dL (7-18); BUN/Creat Ratio 8.4 RATIO (10-20); Chloride 93 mmol/L (98-107); Creatinine, Serum 1.07 mg/dL (0.55-1.02); EST Glomerular Filtration Rate 55 mL/min (>60); Est Glom Filt Rate - Afr Amer 66 mL/min (>60); Estimated Creatinine Clearance 48.42 ml/min; Glucose 96 mg/dL (74-106); Magnesium 0.9 mg/dL (1.6-2.6); Potassium 2.9 mmol/L (3.5-5.1); Sodium Level 131 mmol/L (136-145)
[2021-01-19] MEDS: Aspirin 81 MG TAB.CHEW PO (09:33)
[2021-01-19] MEDS: Hydroxychloroquine 200 MG Tablet PO ×2 (09:33→16:48)
[2021-01-19] MEDS: Menthol/Lanolin/Calamine/Znox 113 GM Tube 1 APPLIC TOPICAL ×2 (09:34→21:50)
[2021-01-19] MEDS: DULoxetine Hcl 60 MG Capsule PO (09:36)
[2021-01-19] MEDS: Minoxidil 2.5 MG Tablet PO (09:36)
[2021-01-19] MEDS: Enoxaparin 40 MG/0.4 ML Syringe SC ×2 (09:36→22:07)
[2021-01-19] MEDS: Ceftriaxone 1 GM/50 ML BAG IV (09:37)
[2021-01-19] MEDS: Labetalol 100 MG Tablet PO ×2 (09:39→22:06)
[2021-01-19] MEDS: Magnesium Sulfate 4gm/100mL 4 GM/100 ML IV.SOLN. IV (10:17)
--- NOTE | 2021-01-19 11:14 | PN.HOSP_ITS ---
Subjective Subjective Patient seen apparently had a hypoglycemic episode this a.m. subsequently adjusted patient insulin regimen. Potassium is down to 2.9 repletion initiated. Urine culture so far negative to date Objective Data Objective Data Vital Signs: Vital Signs Temp Pulse Resp BP Pulse Ox 99.1 F 73 20 H 129/54 H 97 01/19/21 03:35 01/19/21 07:36 01/19/21 07:36 01/19/21 03:35 01/19/21 07:36 Oxygen Flow Rate (L/min) 2 Oxygen Delivery Method Nasal Cannula Weight: 142.4 kg Body Mass Index (BMI) 50.4 Intake & Output: Intake and Output for Last 24 Hours 01/17/21 01/18/21 01/19/21 23:59 23:59 23:59 Intake Total 1515 / 1515 710 / 1110 620 / 620 Output Total 2700 / 2700 2050 / 2300 750 / 750 Balance -1185 / -1185 -1340 / -1190 -130 / -130 Lab / Micro Data Result Diagrams: 01/19/21 06:15 01/19/21 06:15 Labs: Laboratory Results - last 24 hr 01/18/21 01/18/21 01/19/21 16:11 21:34 03:41 WBC RBC Hgb Hct MCV MCH MCHC RDW Std Deviation RDW Coeff of Be Plt Count MPV Immature Gran % (Auto) Neut % (Auto) Lymph % (Auto) [place] % (Auto) Eos % (Auto) Baso % (Auto) Absolute Neuts (auto) Absolute Lymphs (auto) Nucleated RBC % Sodium Potassium Chloride Carbon Dioxide Anion Gap BUN Creatinine Estim Creat Clear Calc Est GFR (MDRD) Af Amer Est GFR (MDRD) Non-Af BUN/Creatinine Ratio Glucose Calcium Magnesium POC Glucose 116 H 193 H 118 H 01/19/21 01/19/21 01/19/21 06:15 06:15 06:31 WBC 11.6 H RBC 3.25 L Hgb 8.7 L Hct 27.0 L MCV 83.1 MCH 26.8 L MCHC 32.2 RDW Std Deviation 40.8 RDW Coeff of Be 13.4 Plt Count 266 MPV 9.7 Immature Gran % (Auto) 0.400 Neut % (Auto) 75.9 H Lymph % (Auto) 10.2 L [place] % (Auto) 10.1 H Eos % (Auto) 2.8 Baso % (Auto) 0.6 Absolute Neuts (auto) 8.8 H Absolute Lymphs (auto) 1.18 Nucleated RBC % 0 Sodium 131 L Potassium 2.9 L Chloride 93 L Carbon Dioxide 33.0 H Anion Gap 5 BUN 9 Creatinine 1.07 H Estim Creat Clear Calc 48.42 Est GFR (MDRD) Af Amer 66 Est GFR (MDRD) Non-Af 55 L BUN/Creatinine Ratio 8.4 L Glucose 96 Calcium 8.0 L Magnesium 0.9 L* POC Glucose 101 Micro: Microbiology 01/17/21 13:00 Urine, Catheterized Urine Culture - Preliminary Culture exhibits no growth. 01/18/21 09:20 Interface Orders SARS-CoV-2 Antigen (Rapid) - Final Radiography Diagnostic Testing: Radiology Impression Echocardiogram 01/17/21 16:51 Interpretation Summary Normal LV size. Left ventricular systolic function is normal. The estimated ejection fraction is 60 %. Pulmonary artery systolic pressure is 32 mmHg. Structurally normal valves. Contrast injection was performed. Ordering Physician: Sandra Burks Referring Physician: Devan Parks Performed By: Preethi Bell RDCS Physical Exam Narrative GENERAL: cooperative but significantly flat affect HEENT: Atraumatic; EYES; Anicteric, Normal Conjunctiva NECK; supple, normal thyroid, RESPIRATORY: Diminished to auscultation CARDIOVASCULAR: Regular S1 S2, GI: soft, normoactive bowel sounds, : No Renal angle tenderness; EXTREMITIES: Trace bipedal edema, no clubbing, MUSCULOSKELETAL: no muscle waisting NEURO: Awake; no lateralizing signs. SKIN: No Rash PSYCH; Flat affect Assessment & Plan Assessment/Plan (1) Intractable nausea and vomiting: (2) Acute UTI: (3) CHF (congestive heart failure): QUALIFIERS: Heart failure chronicity: acute Heart failure type: diastolic Qualified Code(s): I50.31 - Acute diastolic (congestive) heart failure PLAN: Patient is a 65-year-old lady with multiple comorbidities admitted with abdominal discomfort with nausea and vomiting. CT of the abdomen and pelvis obtained on admission demonstrated nonspecific mild degree of bilateral perinephric stranding. Patient was also noted to have small bilateral pleural effusions. Her urinalysis obtained was consistent with acute cystitis. Admitted to a monitored bed for further management 1. Acute pyelonephritis ?Presented with abdominal pain CT of the abdomen demonstrated mild degree of bilateral perinephric stranding. Patient was started on ceftriaxone culture sent -01/19/2021; patient remains on antibiotics urine culture so far negative to date 2. Acute on chronic congestive heart failure with preserved ejection fraction ?Patient started on Lasix with monitoring of electrolytes, strict input and output and daily weight 3. Hypertension - Blood pressure controlled, home medications continued with dose adjustment as needed 4. Questionable seizure ?Patient was apparently transferred to [facility] for 24 EEG monitoring. 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 Hypothyroidism - Patient is on levothyroxine home dose continued 6. Rheumatoid arthritis ?Patient is on hydroxychloroquine 7. Gout ?Patient is on allopurinol 8. Diabetes mellitus type II -Placed on long acting insulin, Accu-Cheks a.c. and at bedtime and covered with sliding scale insulin -01/19/2021; patient had a hypoglycemic episode this a.m. did adjust patient insulin regimen 9. Morbid obesity - With a BMI of 50.7 patient was counseled on weight reduction 10. Depression with anxiety ?Patient apparently also has fibromyalgia and chronic pain syndrome. Patient is on Cymbalta 11. History of stress-induced cardiomyopathy (Takotsubo cardiomyopathy) ?Stable 12. Anemia - Secondary to chronic disorder monitoring H&H and transfuse if patient becomes symptomatic or hemoglobin falls below 7 13. Dyslipidemia -Patient is on statin therapy, continued at home dose 14. Restless leg syndrome ?Patient is on Requip 15. Physical deconditioning - Requested for PT OT eval and socially responsible investment adviser to assist with discharge planning 16. DVT prophylaxis SCDs, Lovenox. 17. Hypokalemia -Corrected per protocol Charges/Coding Visit Charges Inpatient E&M: 32670 Subs Hosp L2
[2021-01-19] MEDS: Potassium Chloride 10mEq/100mL 10 MEQ/100 ML IV.SOLN. 100 MEQ IV BOLUS ×4 (11:28→15:22)
[2021-01-19 12:06] LABS: Bedside Glucose 111 mg/dL (70-110)
--- NOTE | 2021-01-19 15:01 | CASEMGMT ---
ALMA KLINE NOTE: Pt qualifies for a Palliative referral per the [facility] palliative screening tool at this time. Dr Huitron made aware. He states family members to be involved re: Palliative referral. AJ Block, states will inform SNF that pt meets for Palliative referral and have them f/u re: same. Claribel JOHN RN CM
--- NOTE | 2021-01-19 15:12 | CASEMGMT ---
Updates faxed to [facility]. Awaiting pre-cert. Mckayla Nam DIGITAL MEASUREMENT ADVISOR SENIOR ORACLE APPLICATIONS DEVELOPER
[2021-01-19] MEDS: Insulin Lispro 100 UNIT/ML INSULN.PEN SC ×2 (16:31→22:04)
[2021-01-19] MEDS: Potassium Chloride Oral Tablet 20 MEQ PO (16:48)
[2021-01-19 16:56] LABS: Bedside Glucose 168 mg/dL (70-110)
[2021-01-19] MEDS: proCHLORPERazine 10 MG/2 ML Vial 5 MG IV (18:18)
[2021-01-19] MEDS: proMETHazine 25 MG/ML Syringe 6.25 MG IM (21:33)
[2021-01-19] MEDS: Allopurinol 100 MG Tablet PO (22:06)
[2021-01-19] MEDS: Atorvastatin Calcium 20 MG Tablet PO (22:06)
[2021-01-19 22:15] LABS: Bedside Glucose 162 mg/dL (70-110)
[2021-01-20] VITALS (11 sets, daily range): BP systolic 105–133; BP diastolic 36–51; PULSE 69–86; RESP 16–20; TEMP 36.4–36.7; O2SAT 97–98
[2021-01-20 05:11] LABS: Absolute Lymphocyte Count 0.74 X10^3/uL (0.83-4.51); Absolute Neutrophil Count 12.2 X10^3/uL (2.0-7.7); Basophil# 0.07 X10^3/uL; Basophil% 0.5 % (0-1); Eosinophil# 0.35 X10^3/uL; Eosinophils% 2.4 % (0-5); Hemoglobin 8.6 g/dL (12.0-15.0); Lymphocyte # 0.74 X10^3/ul (0.83-4.51); Mean Corp Hgb Conc 31.9 g/dL (32-36); Mean Corpuscular Hgb 27.4 pg (27.0-32.0); Mean Platelet Vol. 10.4 fl (6.2-12.0); Monocyte# 1.36 X10^3/uL; Monocyte% 9.2 % (0-10); NRBC Flagged by Analyzer 0 % (0-5); Neutrophil # 12.15 X10^3/uL (2.7-7.7); Neutrophil % 82.2 % (47-70); POSITIVE COUNT YES; Platelet Count 101 K/mm3 (150-450); RBC Distribution Width CV 13.8 % (11.6-14.6); RBC Distribution Width SD 42.8 fl (35.1-43.9); Red Blood Count 3.14 M/mm3 (4.2-5.4); White Blood Count 14.8 K/mm3 (4.4-11.0)
[2021-01-20 05:14] LABS: Differential Indicated SCAN CRITERIA MET
[2021-01-20 05:28] LABS: Anion Gap 7 (5-15); BUN 12 mg/dL (7-18); BUN/Creat Ratio 8.1 RATIO (10-20); Calcium,Total 7.9 mg/dL (8.5-10.1); Chloride 92 mmol/L (98-107); Creatinine, Serum 1.49 mg/dL (0.55-1.02); EST Glomerular Filtration Rate 37 mL/min (>60); Est Glom Filt Rate - Afr Amer 45 mL/min (>60); Estimated Creatinine Clearance 34.77 ml/min; Glucose 146 mg/dL (74-106); Potassium 3.9 mmol/L (3.5-5.1); Sodium Level 129 mmol/L (136-145)
[2021-01-20 05:30] LABS: Platelet Morphology CLUMPED
[2021-01-20] MEDS: Levothyroxine 75 MCG Tablet PO (05:58)
[2021-01-20] MEDS: Loperamide 2 MG Capsule PO ×3 (05:58→21:49)
[2021-01-20] MEDS: Metoclopramide 10 MG/2 ML Vial 5 MG IV ×3 (05:59→21:49)
[2021-01-20] MEDS: 0.9% Saline Lock 10 ML Syringe IV ×4 (05:59→21:50)
[2021-01-20] MEDS: Budesonide Respules 0.5 MG/2 ML AMPUL.NEB. INHALATION ×2 (07:14→18:51)
[2021-01-20] MEDS: Ondansetron 4 MG/2 ML Vial IV (08:01)
--- NOTE | 2021-01-20 08:25 | PN.HOSP_ITS ---
Subjective Subjective Patient seen complains of nausea. Insurance precertification pending prior to transfer back to [facility] Objective Data Objective Data Vital Signs: Vital Signs Temp Pulse Resp BP Pulse Ox 97.7 F L 70 16 105/36 L 97 01/20/21 03:49 01/20/21 07:00 01/20/21 03:49 01/20/21 03:49 01/20/21 03:49 Oxygen Flow Rate (L/min) 2 Oxygen Delivery Method Nasal Cannula Weight: 142 kg Body Mass Index (BMI) 50.4 Intake & Output: Intake and Output for Last 24 Hours 01/18/21 01/19/21 01/20/21 23:59 23:59 23:59 Intake Total 710 / 1110 1690 / 1690 50 / 50 Output Total 2050 / 2300 1400 / 1400 50 / 50 Balance -1340 / -1190 290 / 290 0 / 0 Lab / Micro Data Result Diagrams: 01/20/21 04:40 01/20/21 04:40 Labs: Laboratory Results - last 24 hr 01/19/21 01/19/21 01/19/21 11:30 16:28 21:39 WBC RBC Hgb Hct MCV MCH MCHC RDW Std Deviation RDW Coeff of Be Plt Count MPV Immature Gran % (Auto) Neut % (Auto) Lymph % (Auto) [place] % (Auto) Eos % (Auto) Baso % (Auto) Absolute Neuts (auto) Absolute Lymphs (auto) Nucleated RBC % Plt Morphology Comment Sodium Potassium Chloride Carbon Dioxide Anion Gap BUN Creatinine Estim Creat Clear Calc Est GFR (MDRD) Af Amer Est GFR (MDRD) Non-Af BUN/Creatinine Ratio Glucose Calcium POC Glucose 111 H 168 H 162 H 01/20/21 01/20/21 04:40 04:40 WBC 14.8 H RBC 3.14 L Hgb 8.6 L Hct 27.0 L MCV 86.0 MCH 27.4 MCHC 31.9 L RDW Std Deviation 42.8 RDW Coeff of Be 13.8 Plt Count 101 L MPV 10.4 Immature Gran % (Auto) 0.700 Neut % (Auto) 82.2 H Lymph % (Auto) 5.0 L [place] % (Auto) 9.2 Eos % (Auto) 2.4 Baso % (Auto) 0.5 Absolute Neuts (auto) 12.2 H Absolute Lymphs (auto) 0.74 L Nucleated RBC % 0 Plt Morphology Comment CLUMPED Sodium 129 L Potassium 3.9 Chloride 92 L Carbon Dioxide 30.0 Anion Gap 7 BUN 12 Creatinine 1.49 H Estim Creat Clear Calc 34.77 Est GFR (MDRD) Af Amer 45 L Est GFR (MDRD) Non-Af 37 L BUN/Creatinine Ratio 8.1 L Glucose 146 H Calcium 7.9 L POC Glucose Micro: Microbiology 01/17/21 13:00 Urine, Catheterized Urine Culture - Final Culture exhibits no growth. 01/18/21 09:20 Interface Orders SARS-CoV-2 Antigen (Rapid) - Final Physical Exam Narrative GENERAL: cooperative but significantly flat affect HEENT: Atraumatic; EYES; Anicteric, Normal Conjunctiva NECK; supple, normal thyroid, RESPIRATORY: Diminished to auscultation CARDIOVASCULAR: Regular S1 S2, GI: soft, normoactive bowel sounds, : No Renal angle tenderness; EXTREMITIES: Trace bipedal edema, no clubbing, MUSCULOSKELETAL: no muscle waisting NEURO: Awake; no lateralizing signs. SKIN: No Rash PSYCH; Flat affect Assessment & Plan Assessment/Plan (1) Intractable nausea and vomiting: (2) Acute UTI: (3) CHF (congestive heart failure): QUALIFIERS: Heart failure chronicity: acute Heart failure type: diastolic Qualified Code(s): I50.31 - Acute diastolic (congestive) heart failure PLAN: Patient is a 65-year-old lady with multiple comorbidities admitted with abdominal discomfort with nausea and vomiting. CT of the abdomen and pelvis obtained on admission demonstrated nonspecific mild degree of bilateral perinephric stranding. Patient was also noted to have small bilateral pleural effusions. Her urinalysis obtained was consistent with acute cystitis. Admitted to a monitored bed for further management 1. Acute pyelonephritis ?Presented with abdominal pain CT of the abdomen demonstrated mild degree of bilateral perinephric stranding. Patient was started on ceftriaxone culture sent -01/19/2021; patient remains on antibiotics urine culture so far negative to date -01/20/2021 urine cultures negative to date. Antibiotics discontinued 2. Acute on chronic congestive heart failure with preserved ejection fraction ?Patient started on Lasix with monitoring of electrolytes, strict input and output and daily weight 3. Hypertension - Blood pressure controlled, home medications continued with dose adjustment as needed 4. Questionable seizure ?Patient was apparently transferred to [facility] for 24 EEG monitoring. 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 Hypothyroidism - Patient is on levothyroxine home dose continued 6. Rheumatoid arthritis ?Patient is on hydroxychloroquine 7. Gout ?Patient is on allopurinol 8. Diabetes mellitus type II -Placed on long acting insulin, Accu-Cheks a.c. and at bedtime and covered with sliding scale insulin -01/19/2021; patient had a hypoglycemic episode this a.m. did adjust patient insulin regimen 9. Morbid obesity - With a BMI of 50.7 patient was counseled on weight reduction 10. Depression with anxiety ?Patient apparently also has fibromyalgia and chronic pain syndrome. Patient is on Cymbalta 11. History of stress-induced cardiomyopathy (Takotsubo cardiomyopathy) ?Stable 12. Anemia - Secondary to chronic disorder monitoring H&H and transfuse if patient becomes symptomatic or hemoglobin falls below 7 13. Dyslipidemia -Patient is on statin therapy, continued at home dose 14. Restless leg syndrome ?Patient is on Requip 15. Physical deconditioning - Requested for PT OT eval and executive secretary social welfare to assist with discharge planning 16. DVT prophylaxis SCDs, Lovenox. 17. Hypokalemia -Corrected per protocol Charges/Coding Visit Charges Inpatient E&M: 99769 Subs Hosp L2
[2021-01-20] MEDS: Potassium Chloride Oral Tablet 20 MEQ PO ×2 (08:53→17:14)
[2021-01-20] MEDS: Aspirin 81 MG TAB.CHEW PO (08:53)
[2021-01-20] MEDS: Hydroxychloroquine 200 MG Tablet PO ×2 (08:53→17:15)
[2021-01-20] MEDS: DULoxetine Hcl 60 MG Capsule PO (08:54)
[2021-01-20] MEDS: Menthol/Lanolin/Calamine/Znox 113 GM Tube 1 APPLIC TOPICAL ×2 (08:54→21:53)
[2021-01-20] MEDS: Enoxaparin 40 MG/0.4 ML Syringe SC ×2 (08:55→21:51)
[2021-01-20] MEDS: Insulin NPH Human 100 UNITS/ML PEN 30 UNITS SC (08:57)
[2021-01-20 09:05] LABS: Bedside Glucose 131 mg/dL (70-110)
[2021-01-20] MEDS: Ceftriaxone 1 GM/50 ML BAG IV (09:42)
--- NOTE | 2021-01-20 10:12 | NURSING ---
wounds stable to the left foot. no drainage. no redness noted. left ASHLEY. pt awaiting precert to [facility].
--- NOTE | 2021-01-20 10:27 | CASEMGMT ---
AJ called [facility] and spoke with Nano. She did get AJ's updates and everything was submitted to insurance. She will let AJ know when they get an answer. Plan: d/c back to [facility] pending pre-cert. Mckayla Nam SUPERVISOR [employer]OMING [employer]ILL [employer]AREN
[2021-01-20 13:16] LABS: Bedside Glucose 110 mg/dL (70-110)
[2021-01-20 17:46] LABS: Bedside Glucose 96 mg/dL (70-110)
[2021-01-20] MEDS: Atorvastatin Calcium 20 MG Tablet PO (21:49)
[2021-01-20] MEDS: Labetalol 100 MG Tablet PO (21:49)
[2021-01-20] MEDS: Allopurinol 100 MG Tablet PO (21:49)
[2021-01-20] MEDS: Acetaminophen 325 MG Tablet 650 MG PO (21:51)
[2021-01-20] MEDS: oxyCODONE 5 MG Tablet PO (21:52)
[2021-01-20 22:16] LABS: Bedside Glucose 116 mg/dL (70-110)
[2021-01-21] VITALS (11 sets, daily range): BP systolic 125–133; BP diastolic 47–55; PULSE 57–68; RESP 16–18; TEMP 36.6–36.9; O2SAT 96–98
[2021-01-21] MEDS: Levothyroxine 75 MCG Tablet PO (06:19)
[2021-01-21] MEDS: Loperamide 2 MG Capsule PO ×3 (06:19→21:42)
[2021-01-21] MEDS: Metoclopramide 10 MG/2 ML Vial 5 MG IV ×3 (06:20→21:43)
[2021-01-21] MEDS: 0.9% Saline Lock 10 ML Syringe IV ×2 (06:21→21:44)
[2021-01-21] MEDS: Budesonide Respules 0.5 MG/2 ML AMPUL.NEB. INHALATION ×2 (06:55→22:00)
[2021-01-21 07:43] LABS: Absolute Lymphocyte Count 1.19 X10^3/uL (0.83-4.51); Absolute Neutrophil Count 6.3 X10^3/uL (2.0-7.7); Basophil# 0.06 X10^3/uL; Basophil% 0.7 % (0-1); Eosinophil# 0.39 X10^3/uL; Eosinophils% 4.4 % (0-5); Hematocrit 25.8 % (37-47); Hemoglobin 8.1 g/dL (12.0-15.0); Lymphocyte # 1.19 X10^3/ul (0.83-4.51); Lymphocyte % 13.4 % (19-41); Mean Corp Hgb Conc 31.4 g/dL (32-36); Mean Platelet Vol. 9.7 fl (6.2-12.0); Monocyte# 0.93 X10^3/uL; Monocyte% 10.5 % (0-10); NRBC Flagged by Analyzer 0 % (0-5); Neutrophil # 6.27 X10^3/uL (2.7-7.7); Neutrophil % 70.5 % (47-70); Platelet Count 235 K/mm3 (150-450); RBC Distribution Width CV 14.1 % (11.6-14.6); RBC Distribution Width SD 43.8 fl (35.1-43.9); White Blood Count 8.9 K/mm3 (4.4-11.0)
--- NOTE | 2021-01-21 07:50 | PCM.PN.HOSP ---
Subjective Subjective Patient has a rash along the crease lines of neck there was a suspicion of possible varicella zoster however patient's rash does not follow a dermatomal pattern Insurance precertification still pending prior to patient being transferred to senior living facility Objective Data Objective Data Vital Signs: Vital Signs Temp Pulse Resp BP Pulse Ox 97.9 F 60 16 128/47 H 98 01/21/21 03:40 01/21/21 07:00 01/21/21 06:55 01/21/21 03:40 01/21/21 06:55 Oxygen Flow Rate (L/min) 2 Oxygen Delivery Method Nasal Cannula Weight: 143.5 kg Body Mass Index (BMI) 50.4 Intake & Output: Intake and Output for Last 24 Hours 01/19/21 01/20/21 01/21/21 23:59 23:59 23:59 Intake Total 1690 / 1690 780 / 780 100 / 100 Output Total 1400 / 1400 625 / 625 150 / 150 Balance 290 / 290 155 / 155 -50 / -50 Lab / Micro Data Result Diagrams: 01/21/21 07:37 01/21/21 07:37 Labs: Laboratory Results - last 24 hr 01/20/21 01/20/21 01/20/21 08:09 12:40 17:05 WBC RBC Hgb Hct MCV MCH MCHC RDW Std Deviation RDW Coeff of Be Plt Count MPV Immature Gran % (Auto) Neut % (Auto) Lymph % (Auto) [place] % (Auto) Eos % (Auto) Baso % (Auto) Absolute Neuts (auto) Absolute Lymphs (auto) Nucleated RBC % POC Glucose 131 H 110 96 01/20/21 01/21/21 22:04 07:37 WBC 8.9 RBC 3.00 L Hgb 8.1 L Hct 25.8 L MCV 86.0 MCH 27.0 MCHC 31.4 L RDW Std Deviation 43.8 RDW Coeff of Be 14.1 Plt Count 235 MPV 9.7 Immature Gran % (Auto) 0.500 Neut % (Auto) 70.5 H Lymph % (Auto) 13.4 L [place] % (Auto) 10.5 H Eos % (Auto) 4.4 Baso % (Auto) 0.7 Absolute Neuts (auto) 6.3 Absolute Lymphs (auto) 1.19 Nucleated RBC % 0 POC Glucose 116 H Micro: Microbiology 01/17/21 13:00 Urine, Catheterized Urine Culture - Final Culture exhibits no growth. 01/18/21 09:20 Interface Orders SARS-CoV-2 Antigen (Rapid) - Final Physical Exam Narrative GENERAL: cooperative but significantly flat affect HEENT: Atraumatic; EYES; Anicteric, Normal Conjunctiva NECK; supple, normal thyroid, RESPIRATORY: Diminished to auscultation CARDIOVASCULAR: Regular S1 S2, GI: soft, normoactive bowel sounds, : No Renal angle tenderness; EXTREMITIES: Trace bipedal edema, no clubbing, MUSCULOSKELETAL: no muscle waisting NEURO: Awake; no lateralizing signs. SKIN: Rash along the crease lines on the right side of her neck PSYCH; Flat affect Assessment & Plan Assessment/Plan (1) Intractable nausea and vomiting: (2) Acute UTI: (3) CHF (congestive heart failure): QUALIFIERS: Heart failure chronicity: acute Heart failure type: diastolic Qualified Code(s): I50.31 - Acute diastolic (congestive) heart failure PLAN: Patient is a 65-year-old lady with multiple comorbidities admitted with abdominal discomfort with nausea and vomiting. CT of the abdomen and pelvis obtained on admission demonstrated nonspecific mild degree of bilateral perinephric stranding. Patient was also noted to have small bilateral pleural effusions. Her urinalysis obtained was consistent with acute cystitis. Admitted to a monitored bed for further management 1. Acute pyelonephritis ?Presented with abdominal pain CT of the abdomen demonstrated mild degree of bilateral perinephric stranding. Patient was started on ceftriaxone culture sent -01/19/2021; patient remains on antibiotics urine culture so far negative to date -01/20/2021 urine cultures negative to date. Antibiotics discontinued 2. Acute on chronic congestive heart failure with preserved ejection fraction ?Patient started on Lasix with monitoring of electrolytes, strict input and output and daily weight 3. Hypertension - Blood pressure controlled, home medications continued with dose adjustment as needed 4. Questionable seizure ?Patient was apparently transferred to [facility] for 24 EEG monitoring. 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 Hypothyroidism - Patient is on levothyroxine home dose continued 6. Rheumatoid arthritis ?Patient is on hydroxychloroquine 7. Gout ?Patient is on allopurinol 8. Diabetes mellitus type II -Placed on long acting insulin, Accu-Cheks a.c. and at bedtime and covered with sliding scale insulin -01/19/2021; patient had a hypoglycemic episode this a.m. did adjust patient insulin regimen 9. Morbid obesity - With a BMI of 50.7 patient was counseled on weight reduction 10. Depression with anxiety ?Patient apparently also has fibromyalgia and chronic pain syndrome. Patient is on Cymbalta 11. History of stress-induced cardiomyopathy (Takotsubo cardiomyopathy) ?Stable 12. Anemia - Secondary to chronic disorder monitoring H&H and transfuse if patient becomes symptomatic or hemoglobin falls below 7 13. Dyslipidemia -Patient is on statin therapy, continued at home dose 14. Restless leg syndrome ?Patient is on Requip 15. Physical deconditioning - Requested for PT OT eval and psychotherapist social worker to assist with discharge planning 16. DVT prophylaxis SCDs, Lovenox. 17. Hypokalemia -Corrected per protocol 18. Neck rash - Patient has a rash along the crease lines of neck there was a suspicion of possible varicella zoster however patient's rash does not follow a dermatomal pattern Charges/Coding Visit Charges Inpatient E&M: 59323 Subs Hosp L2
[2021-01-21 07:56] LABS: Anion Gap 5 (5-15); BUN 15 mg/dL (7-18); BUN/Creat Ratio 9.9 RATIO (10-20); Calcium,Total 8.4 mg/dL (8.5-10.1); Chloride 92 mmol/L (98-107); Creatinine, Serum 1.51 mg/dL (0.55-1.02); EST Glomerular Filtration Rate 37 mL/min (>60); Est Glom Filt Rate - Afr Amer 44 mL/min (>60); Estimated Creatinine Clearance 34.31 ml/min; Glucose 119 mg/dL (74-106); Potassium 4.2 mmol/L (3.5-5.1); Sodium Level 130 mmol/L (136-145)
[2021-01-21] MEDS: Enoxaparin 40 MG/0.4 ML Syringe SC ×2 (08:40→21:42)
[2021-01-21] MEDS: Aspirin 81 MG TAB.CHEW PO (08:41)
[2021-01-21 08:43] LABS: Magnesium 1.9 mg/dL (1.6-2.6)
[2021-01-21] MEDS: Menthol/Lanolin/Calamine/Znox 113 GM Tube 1 APPLIC TOPICAL ×2 (08:43→21:42)
[2021-01-21] MEDS: Potassium Chloride Oral Tablet 20 MEQ PO ×2 (08:43→16:27)
[2021-01-21] MEDS: Insulin NPH Human 100 UNITS/ML PEN 30 UNITS SC (08:43)
[2021-01-21] MEDS: DULoxetine Hcl 60 MG Capsule PO (08:43)
[2021-01-21] MEDS: Hydroxychloroquine 200 MG Tablet PO ×3 (08:43→16:27)
[2021-01-21] MEDS: Labetalol 100 MG Tablet PO ×2 (08:50→21:41)
[2021-01-21] MEDS: Minoxidil 2.5 MG Tablet PO (08:50)
[2021-01-21] MEDS: Ceftriaxone 1 GM/50 ML BAG IV (09:24)
[2021-01-21 09:26] LABS: Bedside Glucose 117 mg/dL (70-110)
[2021-01-21 11:40] LABS: Bedside Glucose 132 mg/dL (70-110)
[2021-01-21] MEDS: Insulin Lispro 100 UNIT/ML INSULN.PEN SC ×2 (16:26→21:45)
[2021-01-21 16:35] LABS: Bedside Glucose 173 mg/dL (70-110)
[2021-01-21] MEDS: Ondansetron 4 MG/2 ML Vial IV (17:14)
[2021-01-21] MEDS: Acetaminophen 325 MG Tablet 650 MG PO (20:29)
[2021-01-21] MEDS: oxyCODONE 5 MG Tablet PO (20:29)
[2021-01-21] MEDS: Atorvastatin Calcium 20 MG Tablet PO (21:42)
[2021-01-21] MEDS: Allopurinol 100 MG Tablet PO (21:42)
[2021-01-21 22:01] LABS: Bedside Glucose 156 mg/dL (70-110)
[2021-01-22] VITALS (11 sets, daily range): BP systolic 129–147; BP diastolic 52–81; PULSE 61–75; RESP 17–18; TEMP 36.6–37; O2SAT 95–100
[2021-01-22] MEDS: Acetaminophen 325 MG Tablet 650 MG PO (03:12)
[2021-01-22] MEDS: oxyCODONE 5 MG Tablet PO ×2 (03:12→15:42)
[2021-01-22] MEDS: Metoclopramide 10 MG/2 ML Vial 5 MG IV ×3 (05:22→21:50)
[2021-01-22] MEDS: Loperamide 2 MG Capsule PO ×3 (05:22→21:49)
[2021-01-22] MEDS: Levothyroxine 75 MCG Tablet PO (05:22)
[2021-01-22] MEDS: 0.9% Saline Lock 10 ML Syringe IV ×3 (05:23→22:53)
[2021-01-22] MEDS: Budesonide Respules 0.5 MG/2 ML AMPUL.NEB. INHALATION ×2 (06:58→21:29)
[2021-01-22] MEDS: Labetalol 100 MG Tablet PO ×2 (08:14→21:49)
[2021-01-22] MEDS: Potassium Chloride Oral Tablet 20 MEQ PO ×2 (08:14→16:29)
[2021-01-22] MEDS: Enoxaparin 40 MG/0.4 ML Syringe SC ×2 (08:14→21:51)
[2021-01-22] MEDS: DULoxetine Hcl 60 MG Capsule PO (08:14)
[2021-01-22] MEDS: Aspirin 81 MG TAB.CHEW PO (08:14)
[2021-01-22] MEDS: Minoxidil 2.5 MG Tablet PO (08:14)
[2021-01-22] MEDS: Insulin NPH Human 100 UNITS/ML PEN 30 UNITS SC ×2 (08:17→21:53)
[2021-01-22] MEDS: Menthol/Lanolin/Calamine/Znox 113 GM Tube 1 APPLIC TOPICAL ×2 (08:18→21:48)
[2021-01-22] MEDS: Ceftriaxone 1 GM/50 ML BAG IV (08:42)
--- NOTE | 2021-01-22 09:29 | PN.HOSP_ITS ---
Subjective Subjective Patient seen appears to be back to baseline. Insurance precertification pending prior to patient being transferred to nursing home facility Objective Data Objective Data Vital Signs: Vital Signs Temp Pulse Resp BP Pulse Ox 97.8 F 63 18 137/81 H 100 01/22/21 08:07 01/22/21 08:07 01/22/21 08:07 01/22/21 08:07 01/22/21 08:07 Oxygen Flow Rate (L/min) 2 Oxygen Delivery Method Nasal Cannula Weight: 143.5 kg Body Mass Index (BMI) 50.4 Intake & Output: Intake and Output for Last 24 Hours 01/20/21 01/21/21 01/22/21 23:59 23:59 23:59 Intake Total 780 / 780 860 / 860 160 / 160 Output Total 625 / 625 975 / 975 325 / 325 Balance 155 / 155 -115 / -115 -165 / -165 Lab / Micro Data Result Diagrams: 01/21/21 07:37 01/21/21 07:37 Labs: Laboratory Results - last 24 hr 01/21/21 01/21/21 01/21/21 11:35 16:26 21:36 POC Glucose 132 H 173 H 156 H Micro: Microbiology 01/17/21 13:00 Urine, Catheterized Urine Culture - Final Culture exhibits no growth. 01/18/21 09:20 Interface Orders SARS-CoV-2 Antigen (Rapid) - Final Physical Exam Narrative GENERAL: cooperative but significantly flat affect HEENT: Atraumatic; EYES; Anicteric, Normal Conjunctiva NECK; supple, normal thyroid, RESPIRATORY: Diminished to auscultation CARDIOVASCULAR: Regular S1 S2, GI: soft, normoactive bowel sounds, : No Renal angle tenderness; EXTREMITIES: Trace bipedal edema, no clubbing, MUSCULOSKELETAL: no muscle waisting NEURO: Awake; no lateralizing signs. SKIN: Rash along the crease lines on the right side of her neck PSYCH; Flat affect Assessment & Plan Assessment/Plan (1) Intractable nausea and vomiting: (2) Acute UTI: (3) CHF (congestive heart failure): QUALIFIERS: Heart failure type: diastolic Heart failure chronicity: acute Qualified Code(s): I50.31 - Acute diastolic (congestive) heart failure PLAN: Patient is a 65-year-old lady with multiple comorbidities admitted with abdominal discomfort with nausea and vomiting. CT of the abdomen and pelvis obtained on admission demonstrated nonspecific mild degree of bilateral perinephric stranding. Patient was also noted to have small bilateral pleural effusions. Her urinalysis obtained was consistent with acute cystitis. Admitted to a monitored bed for further management 1. Acute pyelonephritis ?Presented with abdominal pain CT of the abdomen demonstrated mild degree of bilateral perinephric stranding. Patient was started on ceftriaxone culture se nt -01/19/2021; patient remains on antibiotics urine culture so far negative to date -01/20/2021 urine cultures negative to date. Antibiotics discontinued 2. Acute on chronic congestive heart failure with preserved ejection fraction ?Patient started on Lasix with monitoring of electrolytes, strict input and output and daily weight 3. Hypertension - Blood pressure controlled, home medications continued with dose adjustment as needed 4. Questionable seizure ?Patient was apparently transferred to [facility] for 24 EEG monitoring. 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 Hypothyroidism - Patient is on levothyroxine home dose continued 6. Rheumatoid arthritis ?Patient is on hydroxychloroquine 7. Gout ?Patient is on allopurinol 8. Diabetes mellitus type II -Placed on long acting insulin, Accu-Cheks a.c. and at bedtime and covered with sliding scale insulin -01/19/2021; patient had a hypoglycemic episode this a.m. did adjust patient insulin regimen 9. Morbid obesity - With a BMI of 50.7 patient was counseled on weight reduction 10. Depression with anxiety ?Patient apparently also has fibromyalgia and chronic pain syndrome. Patient is on Cymbalta 11. History of stress-induced cardiomyopathy (Takotsubo cardiomyopathy) ?Stable 12. Anemia - Secondary to chronic disorder monitoring H&H and transfuse if patient becomes symptomatic or hemoglobin falls below 7 13. Dyslipidemia -Patient is on statin therapy, continued at home dose 14. Restless leg syndrome ?Patient is on Requip 15. Physical deconditioning - Requested for PT OT eval and social psychologist to assist with discharge planning 16. DVT prophylaxis SCDs, Lovenox. 17. Hypokalemia -Corrected per protocol 18. Neck rash - Patient has a rash along the crease lines of neck there was a suspicion of possible varicella zoster however patient's rash does not follow a dermatomal pattern Charges/Coding Visit Charges Inpatient E&M: 85607 Subs Hosp L2
[2021-01-22 11:05] LABS: Bedside Glucose 144 mg/dL (70-110)
[2021-01-22] MEDS: Insulin Lispro 100 UNIT/ML INSULN.PEN SC ×3 (11:05→21:52)
[2021-01-22 11:11] LABS: Bedside Glucose 175 mg/dL (70-110)
[2021-01-22] MEDS: Hydroxychloroquine 200 MG Tablet PO (16:29)
[2021-01-22 16:36] LABS: Bedside Glucose 161 mg/dL (70-110)
[2021-01-22] MEDS: Atorvastatin Calcium 20 MG Tablet PO (21:49)
[2021-01-22] MEDS: Allopurinol 100 MG Tablet PO (21:49)
[2021-01-22 22:05] LABS: Bedside Glucose 172 mg/dL (70-110)
[2021-01-23] VITALS (10 sets, daily range): BP systolic 109–153; BP diastolic 45–58; PULSE 63–77; RESP 15–17; TEMP 36.9–37.2; O2SAT 96–98
[2021-01-23] MEDS: Levothyroxine 75 MCG Tablet PO (05:37)
[2021-01-23] MEDS: Loperamide 2 MG Capsule PO (05:37)
[2021-01-23] MEDS: Metoclopramide 10 MG/2 ML Vial 5 MG IV ×2 (05:38→13:19)
[2021-01-23] MEDS: 0.9% Saline Lock 10 ML Syringe IV ×3 (05:39→13:20)
[2021-01-23 06:29] LABS: Absolute Lymphocyte Count 0.85 X10^3/uL (0.83-4.51); Absolute Neutrophil Count 8.7 X10^3/uL (2.0-7.7); Basophil# 0.07 X10^3/uL; Basophil% 0.6 % (0-1); Eosinophil# 0.32 X10^3/uL; Eosinophils% 2.9 % (0-5); Hematocrit 27.2 % (37-47); Hemoglobin 8.4 g/dL (12.0-15.0); Lymphocyte # 0.85 X10^3/ul (0.83-4.51); Lymphocyte % 7.7 % (19-41); Mean Corp Hgb Conc 30.9 g/dL (32-36); Mean Corpuscular Volume 87.5 fL (81-99); Mean Platelet Vol. 9.8 fl (6.2-12.0); Monocyte# 1.03 X10^3/uL; Monocyte% 9.4 % (0-10); NRBC Flagged by Analyzer 0 % (0-5); Neutrophil # 8.68 X10^3/uL (2.7-7.7); Platelet Count 280 K/mm3 (150-450); RBC Distribution Width CV 14.2 % (11.6-14.6); RBC Distribution Width SD 44.4 fl (35.1-43.9); Red Blood Count 3.11 M/mm3 (4.2-5.4)
[2021-01-23] MEDS: Budesonide Respules 0.5 MG/2 ML AMPUL.NEB. INHALATION (06:40)
[2021-01-23 06:58] LABS: Anion Gap 3 (5-15); BUN 14 mg/dL (7-18); Calcium,Total 9.2 mg/dL (8.5-10.1); Chloride 95 mmol/L (98-107); Creatinine, Serum 1.17 mg/dL (0.55-1.02); EST Glomerular Filtration Rate 49 mL/min (>60); Est Glom Filt Rate - Afr Amer 59 mL/min (>60); Estimated Creatinine Clearance 44.28 ml/min; Glucose 169 mg/dL (74-106); Magnesium 1.9 mg/dL (1.6-2.6); Potassium 5.2 mmol/L (3.5-5.1); Sodium Level 129 mmol/L (136-145)
[2021-01-23] MEDS: Insulin Lispro 100 UNIT/ML INSULN.PEN SC ×2 (08:11→16:28)
[2021-01-23] MEDS: Aspirin 81 MG TAB.CHEW PO (08:13)
[2021-01-23] MEDS: Hydroxychloroquine 200 MG Tablet PO ×2 (08:13→16:29)
[2021-01-23] MEDS: Menthol/Lanolin/Calamine/Znox 113 GM Tube 1 APPLIC TOPICAL (08:13)
[2021-01-23] MEDS: Potassium Chloride Oral Tablet 20 MEQ PO ×2 (08:13→16:29)
[2021-01-23] MEDS: Insulin NPH Human 100 UNITS/ML PEN 30 UNITS SC (08:15)
[2021-01-23] MEDS: DULoxetine Hcl 60 MG Capsule PO (08:15)
[2021-01-23] MEDS: Minoxidil 2.5 MG Tablet PO (08:16)
[2021-01-23] MEDS: Enoxaparin 40 MG/0.4 ML Syringe SC (08:16)
[2021-01-23] MEDS: Labetalol 100 MG Tablet PO (08:16)
--- NOTE | 2021-01-23 08:42 | CASEMGMT ---
AJ called [facility], message left, updates faxed. ARGENTINA Brownlee
[2021-01-23 10:10] LABS: Bedside Glucose 162 mg/dL (70-110)
--- NOTE | 2021-01-23 10:58 | CASEMGMT ---
Social Work Note AJ spoke with Nano at [facility] who states pre-cert is still pending. AJ placed a call to Velma ELAINE and left message updating her. Plan: [facility] pending pre-cert Romana Licona DEVELOPMENT PLANNER, [employer]OCIATE [employer]
--- NOTE | 2021-01-23 11:53 | PCM.TXEXTCAR ---
Diet 01/17/21 16:51 Diet: Cardiac: Calorie-Controlled Food consistency:: Mechanical (Minced/Moist) Liquid Consistency:: Regular/Thin Diet Comments: Magic Cup L&D How many daily calories?: 1800 calorie Routine Orders/Code Status Enema Type: Fleetz Enema Frequency: Daily PRN Suppository Type: Dulcolax 10mg Suppository Frequency: Daily PRN O2 Liters per Minute: 2 O2 Frequency: Continuous Keep PO Greater than or Equal to (%): 90 Routine Lab Work: - (Weekly CBC, BMP) Code Status: Full Code Wound(s) left coccyx: Wound Type: Pressure Injury left buttocks: Wound Type: Pressure Injury right neck: Wound Type: redness, raw left heel: Wound Type: Pressure Injury ball of left foot: Wound Type: Neuropathic/Diabetic Foot Ulcer left 3rd toe: Wound Type: Neuropathic/Diabetic Foot Ulcer right lower back: Wound Type: small blistered area Dressing Change: Mepilex right upper buttock: Wound Type: small blistered area Dressing Change: Mepilex Suggestions for Active Care Change Position every (hours): 2 Times a day to sit in chair: 3 Therapies Physical Therapy: Eval and Treat Occupational Therapy: Eval and Treat Speech Therapy: Eval and Treat Problem/Diagnosis (1) Intractable nausea and vomiting: Status: Acute (2) Acute UTI: Status: Acute (3) CHF (congestive heart failure): Status: Acute Allergies/Procedures Done in Hospital Allergies ciprofloxacin [From Cipro] Allergy (Verified 01/17/21 10:04) short of breath cyclobenzaprine Allergy (Verified 01/17/21 10:04) rash levofloxacin [From Levaquin] Allergy (Verified 01/17/21 10:04) PT UNSURE OF REACTION metformin Allergy (Verified 01/17/21 17:02) unknown listed on [facility] paperwork sulfamethoxazole Allergy (Verified 01/17/21 10:04) itch topiramate Allergy (Verified 01/17/21 10:04) PT UNSURE OF REACTION trimethoprim Allergy (Verified 01/17/21 10:04) itch valacyclovir [From Valtrex] Allergy (Verified 01/17/21 14:58) pt unsure ketorolac [From Toradol] Adverse Reaction (Verified 01/17/21 10:04) Other Procedures: 2-D Echocardiogram Type of Care/Length of Stay Estimated LOS: Convalescent Care Less Than 30 days Type of Care Needed: Skilled Rehab Potential: Fair Prognosis: Fair Additional Orders/Day of Discharge H&P will serve as current which was dated: 01/17/21 Day of Discharge: 01/23/21 Dietary and Speech Recommendations Dietitian Recommendations/Changes: Continue cardiac, calorie controlled 1800kcal/day diet. Add magic cup BID at lunch and dinner. D/c Shade 1 packet at breakfast and lunch. Discharge Plan Admission Admit Date/Time: 01/17/21 14:06 Primary Reason for Your Visit: Acute pyelonephritis, CHF Attending Provider: Fina Huertas Primary Care Provider: Devan Parks Discharge Orders/Prescriptions Prescriptions: Continued levothyroxine 75 MCG tablet 75 mcg PO DAILY RF: 0 allopurinol 100 mg tablet 100 mg PO DAILY RF: 0 hydroxychloroquine 200 MG tablet 200 mg PO BIDCM RF: 0 ondansetron HCl 8 MG tablet 8 mg PO Q6H PRN PRN (Reason: Nausea) RF: 0 promethazine 25 MG tablet 25 mg PO Q6H PRN (Reason: Nausea) RF: 0 multivitamin [Daily-Jessica] Tablet 1 tab PO DAILY RF: 0 acetaminophen [Tylenol] 325 mg Tablet 650 mg PO Q6H PRN (Reason: pain and fever) RF: 0 atorvastatin 20 mg Tablet 20 mg PO QHS RF: 0 loperamide [Imodium A-D] 2 mg Tablet 2 mg PO TID RF: 0 minoxidil 2.5 mg Tablet 2.5 mg PO DAILY RF: 0 aspirin 81 mg Tablet,Delayed Release (Dr/Ec) 81 mg PO DAILY RF: 0 furosemide [Lasix] 20 mg Tablet 20 mg PO BID RF: 0 labetalol 100 mg Tablet 100 mg PO BID RF: 0 Novolin R Flexpen 100 unit/mL (3 mL) Insulin Pen 10 unit SUBCUT TIDCM RF: 0 oxymetazoline 0.05 % Mist 2 spray INTRANASAL Q12H PRN (Reason: Congestion) RF: 0 duloxetine 60 mg Capsule,Delayed Release(Dr/Ec) 60 mg PO DAILY RF: 0 beclomethasone dipropionate 40 mcg/actuation Hfa Aerosol Inhaler 1 spray INTRANASAL BID RF: 0 Referrals / Follow Up: Devan Parks MD [Primary Care Provider] - In 1 Week Carley Ziegler, PA [PHYSICIAN [employer]] - See Referral Note (As scheduled ) Disposition Disposition (needs filled in before D/C Order can be placed): Intermediate Facility
[2021-01-23 12:10] LABS: Bedside Glucose 145 mg/dL (70-110)
--- NOTE | 2021-01-23 12:15 | PCM.DC.SUM ---
Documented by User: Ashli Baldwin NP, PREPARATION ROOM MANAGER-C 01/23/21 12:40 Providers Date of Admission: 01/17/21 Date of Discharge: 01/23/21 Primary Care Physician: Dr. Devan Parks MD Consultations 01/18/21 09:09 Consult: Onc/Wound/auto top mechanic Routine Comment: Reason For Visit: CHF EXCERBATION, UTI Diagnosis Discharge Diagnosis (1) Intractable nausea and vomiting: Status: Acute Code(s): R11.2 - Nausea with vomiting, unspecified (2) Acute UTI: Status: Acute Code(s): N39.0 - Urinary tract infection, site not specified (3) CHF (congestive heart failure): Status: Acute Code(s): I50.9 - Heart failure, unspecified Qualifiers: Heart failure chronicity: acute Heart failure type: diastolic Qualified Code(s): I50.31 - Acute diastolic (congestive) heart failure Medications at Discharge Home Medications levothyroxine 75 mcg PO DAILY 09/17/18 hydroxychloroquine 200 mg PO BIDCM 11/30/18 allopurinol 100 mg tablet 100 mg PO DAILY tab 03/30/19 ondansetron HCl 8 mg PO Q6H PRN PRN 08/29/20 promethazine 25 mg PO Q6H PRN 10/27/20 Novolin R Flexpen 10 unit SUBCUT TIDCM 01/17/21 acetaminophen [Tylenol] 650 mg PO Q6H PRN 01/17/21 aspirin 81 mg PO DAILY 01/17/21 atorvastatin 20 mg PO QHS 01/17/21 beclomethasone dipropionate 1 spray INTRANASAL BID 01/17/21 duloxetine 60 mg PO DAILY 01/17/21 furosemide [Lasix] 20 mg PO BID 01/17/21 labetalol 100 mg PO BID 01/17/21 loperamide [Imodium A-D] 2 mg PO TID 01/17/21 minoxidil 2.5 mg PO DAILY 01/17/21 multivitamin [Daily-Jessica] 1 tab PO DAILY 01/17/21 oxymetazoline 2 spray INTRANASAL Q12H PRN 01/17/21 Hospital Course Operations None Procedures 2-D Echocardiogram Summary of Care Provided Minutes Spent on Discharge: 35 Hospital Course: Patient is a 65-year-old female admitted 01/17/2021 due to abdominal discomfort, nausea. 1. Acute pyelonephritis-CT of abdomen pelvis admission showed mild degree of bilateral perinephric stranding. IV Rocephin during admission. Urine cultures with no growth. Antibiotics discontinued following completed course. Follow-up with PCP in 1 week. SNF at discharge for rehab. 2. Acute on chronic heart failure with preserved ejection fraction/history of Takotsubo cardiomyopathy, associated mild hypoxia-wean oxygen as tolerated. IV Lasix during admission. Transition to home Lasix regimen 20 mg twice daily. Echocardiogram completed and demonstrates an EF of 60%, pulmonary artery systolic pressure 32 mmHg. Follow-up with cardiology as outpatient as scheduled. 3. History of recent questionable seizure disorder-recent transfer to outside facility for 24-hour EEG. Diagnosed with PRES. not on antiepileptic regimen. 4. Type 2 diabetes mellitus with gastroparesis-continue home insulin regimen. 5. Rheumatoid arthritis-on Plaquenil. 6. Chronic pain syndrome, neuropathy, fibromyalgia-continue home as needed regimen. PT/OT. 7. Anxiety/depression/questionable bipolar disorder-on Cymbalta. 8. Hypertension-stable, continue labetalol. 9. Gout-on allopurinol. 10. Hypothyroidism-continue Synthroid regimen. 11. Chronic iron deficiency anemia-stable. 12. Debility, weakness-SNF for further PT/OT. Patient seen and examined prior to discharge. Physical assessment as noted below. Patient is stable for discharge with follow up recommendations as noted above. This patient was seen by JONATAN Ley under the supervision of Dr. Huertas. Physical Exam Const alert, oriented x3 and no apparent distress Orientation / Consciousness: awake, oriented to person, oriented to place and oriented to time HEENT normocephalic and moist oral mucous membranes Eyes PERRL, EOMs intact bilaterally and conjunctivae normal Neck no lymphadenopathy Resp clear to auscultation bilaterally Auscultation: diminished lung sounds Cardio regular rate, regular rhythm and no murmurs Peripheral Pulses: pulses 2+ throughout GI normal to inspection, nondistended, normoactive bowel sounds, non-tender and non-distended Extremity normal to inspection Extremity Narrative: Mild generalized edema Skin no rashes or lesions noted Lesions: no lesions Rashes: no rashes Trauma: no lacerations or abrasions Neuro CN's II-XII intact bilaterally, no focal motor deficits, no sensory deficits noted and deep tendon reflexes 2+ bilaterally Psych Mood & Affect: flat affect ABG / Lab / Microbiology Data Result Diagrams: 01/23/21 06:10 01/23/21 06:10 Laboratory: Laboratory Results - last 24 hr 01/22/21 01/22/21 01/23/21 16:27 21:42 06:10 WBC 11.0 RBC 3.11 L Hgb 8.4 L Hct 27.2 L MCV 87.5 MCH 27.0 MCHC 30.9 L RDW Std Deviation 44.4 H RDW Coeff of Be 14.2 Plt Count 280 MPV 9.8 Immature Gran % (Auto) 0.400 Neut % (Auto) 79.0 H Lymph % (Auto) 7.7 L [place] % (Auto) 9.4 Eos % (Auto) 2.9 Baso % (Auto) 0.6 Absolute Neuts (auto) 8.7 H Absolute Lymphs (auto) 0.85 Nucleated RBC % 0 Sodium Potassium Chloride Carbon Dioxide Anion Gap BUN Creatinine Estim Creat Clear Calc Est GFR (MDRD) Af Amer Est GFR (MDRD) Non-Af BUN/Creatinine Ratio Glucose Calcium Magnesium POC Glucose 161 H 172 H 01/23/21 01/23/21 01/23/21 06:10 07:59 12:06 WBC RBC Hgb Hct MCV MCH MCHC RDW Std Deviation RDW Coeff of Be Plt Count MPV Immature Gran % (Auto) Neut % (Auto) Lymph % (Auto) [place] % (Auto) Eos % (Auto) Baso % (Auto) Absolute Neuts (auto) Absolute Lymphs (auto) Nucleated RBC % Sodium 129 L Potassium 5.2 H Chloride 95 L Carbon Dioxide 31.0 Anion Gap 3 L BUN 14 Creatinine 1.17 H Estim Creat Clear Calc 44.28 Est GFR (MDRD) Af Amer 59 L Est GFR (MDRD) Non-Af 49 L BUN/Creatinine Ratio 12.0 Glucose 169 H Calcium 9.2 Magnesium 1.9 POC Glucose 162 H 145 H Microbiology: Microbiology 01/17/21 13:00 Urine, Catheterized Urine Culture - Final Culture exhibits no growth. 01/18/21 09:20 Interface Orders SARS-CoV-2 Antigen (Rapid) - Final Meaningful Use Info Meaningful Use Diagnoses (Choose all that apply): CHF CHF MARGARETH/ARB ordered at discharge?: No Reason MARGARETH/ARB not ordered?: Normal EF Documented LVEF (%): 60 Discharge Plan Admission Admit Date/Time: 01/17/21 14:06 Primary Reason for Your Visit: Acute pyelonephritis, CHF Attending Provider: Fina Huertas Primary Care Provider: Devan Parks Discharge Orders/Prescriptions Prescriptions: Continued levothyroxine 75 MCG tablet 75 mcg PO DAILY RF: 0 allopurinol 100 mg tablet 100 mg PO DAILY RF: 0 hydroxychloroquine 200 MG tablet 200 mg PO BIDCM RF: 0 ondansetron HCl 8 MG tablet 8 mg PO Q6H PRN PRN (Reason: Nausea) RF: 0 promethazine 25 MG tablet 25 mg PO Q6H PRN (Reason: Nausea) RF: 0 multivitamin [Daily-Jessica] Tablet 1 tab PO DAILY RF: 0 acetaminophen [Tylenol] 325 mg Tablet 650 mg PO Q6H PRN (Reason: pain and fever) RF: 0 atorvastatin 20 mg Tablet 20 mg PO QHS RF: 0 loperamide [Imodium A-D] 2 mg Tablet 2 mg PO TID RF: 0 minoxidil 2.5 mg Tablet 2.5 mg PO DAILY RF: 0 aspirin 81 mg Tablet,Delayed Release (Dr/Ec) 81 mg PO DAILY RF: 0 furosemide [Lasix] 20 mg Tablet 20 mg PO BID RF: 0 labetalol 100 mg Tablet 100 mg PO BID RF: 0 Novolin R Flexpen 100 unit/mL (3 mL) Insulin Pen 10 unit SUBCUT TIDCM RF: 0 oxymetazoline 0.05 % Mist 2 spray INTRANASAL Q12H PRN (Reason: Congestion) RF: 0 duloxetine 60 mg Capsule,Delayed Release(Dr/Ec) 60 mg PO DAILY RF: 0 beclomethasone dipropionate 40 mcg/actuation Hfa Aerosol Inhaler 1 spray INTRANASAL BID RF: 0 Referrals / Follow Up: Devan Parks MD [Primary Care Provider] - In 1 Week Carley Ziegler PA [PHYSICIAN CHIEF COMPLIANCE OFFICER] - See Referral Note (As scheduled ) Disposition Disposition (needs filled in before D/C Order can be placed): [facility] Documented by User: Dr. Fina Huertas MD 01/24/21 09:27 Providers Date of Admission: 01/17/21 Reason For Visit: CHF EXCERBATION, UTI Medications at Discharge Home Medications levothyroxine 75 mcg PO DAILY 09/17/18 hydroxychloroquine 200 mg PO BIDCM 11/30/18 allopurinol 100 mg tablet 100 mg PO DAILY tab 03/30/19 ondansetron HCl 8 mg PO Q6H PRN PRN 08/29/20 promethazine 25 mg PO Q6H PRN 10/27/20 Novolin R Flexpen 10 unit SUBCUT TIDCM 01/17/21 acetaminophen [Tylenol] 650 mg PO Q6H PRN 01/17/21 aspirin 81 mg PO DAILY 01/17/21 atorvastatin 20 mg PO QHS 01/17/21 beclomethasone dipropionate 1 spray INTRANASAL BID 01/17/21 duloxetine 60 mg PO DAILY 01/17/21 furosemide [Lasix] 20 mg PO BID 01/17/21 labetalol 100 mg PO BID 01/17/21 loperamide [Imodium A-D] 2 mg PO TID 01/17/21 minoxidil 2.5 mg PO DAILY 01/17/21 multivitamin [Daily-Jessica] 1 tab PO DAILY 01/17/21 oxymetazoline 2 spray INTRANASAL Q12H PRN 01/17/21 Hospital Course Summary of Care Provided Hospital Course: Hospitalist note: Discharge summary above reviewed and I concur with the above discharge plan. She presented to the emergency room because of abdominal pain, nausea and vomiting. She was found to have mild degree of bilateral peripheral stranding on CT scan abdomen consistent with acute pyelonephritis. Also, she was found to have acute on chronic heart failure with preserved ejection fraction. She was treated with IV Rocephin and she completed her course during this hospital stay. Urine culture showed no growth. She was treated with IV Lasix for diuresis. She had a history of Takotsubo cardiomyopathy. 2D echocardiogram revealed normal LV size and function, ejection fraction was 60%, pulmonary artery pressure was 32. With treatment, symptoms improved. She remained afebrile, no more nausea or vomiting. Patient was discharged to long term facility in a stable medical condition, she completed antibiotics for UTI, discharged on Lasix, continued on her previous home medications without any changes, plan to follow-up with ECP in 1 week and follow-up with cardiology as scheduled. - Physical Exam General: Alert, Oriented x3, Cooperative, No apparent distress. HEENT: Atraumatic, PERRLA, EOMI. Neck: Supple, No JVD, Negative Carotid Bruits, Trachea Midline, Thyroid Normal. Lungs: Diminished breath sounds bilateral, otherwise clear., No rhonchi, No wheeze, No rales. Cardiovascular: Regular rate, Regular Rhythm, Normal S1, Normal S2, PMI Normal. Abdomen: Bowel Sounds Present, Soft, Non Tender, Non-Distended, No Hepato-splenomegaly, obese. Extremities: No clubbing, No cyanosis, edema Skin: No rashes, No breakdown Neurological: Cranial nerves are intact, neuro grossly intact Vital Signs are stable. This note was generated with [employer] dictation software. It may contain incorrect words, spelling, and punctuation that were not noted in checking the note before signing. ABG / Lab / Microbiology Data Result Diagrams: 01/23/21 06:10 01/23/21 06:10 Discharge Plan Admission Admit Date/Time: 01/17/21 14:06 Primary Reason for Your Visit: Acute pyelonephritis, CHF Attending Provider: Fina Huertas Primary Care Provider: Devan Parks Discharge Orders/Prescriptions Prescriptions: Continued levothyroxine 75 MCG tablet 75 mcg PO DAILY RF: 0 allopurinol 100 mg tablet 100 mg PO DAILY RF: 0 hydroxychloroquine 200 MG tablet 200 mg PO BIDCM RF: 0 ondansetron HCl 8 MG tablet 8 mg PO Q6H PRN PRN (Reason: Nausea) RF: 0 promethazine 25 MG tablet 25 mg PO Q6H PRN (Reason: Nausea) RF: 0 multivitamin [Daily-Jessica] Tablet 1 tab PO DAILY RF: 0 acetaminophen [Tylenol] 325 mg Tablet 650 mg PO Q6H PRN (Reason: pain and fever) RF: 0 atorvastatin 20 mg Tablet 20 mg PO QHS RF: 0 loperamide [Imodium A-D] 2 mg Tablet 2 mg PO TID RF: 0 minoxidil 2.5 mg Tablet 2.5 mg PO DAILY RF: 0 aspirin 81 mg Tablet,Delayed Release (Dr/Ec) 81 mg PO DAILY RF: 0 furosemide [Lasix] 20 mg Tablet 20 mg PO BID RF: 0 labetalol 100 mg Tablet 100 mg PO BID RF: 0 Novolin R Flexpen 100 unit/mL (3 mL) Insulin Pen 10 unit SUBCUT TIDCM RF: 0 oxymetazoline 0.05 % Mist 2 spray INTRANASAL Q12H PRN (Reason: Congestion) RF: 0 duloxetine 60 mg Capsule,Delayed Release(Dr/Ec) 60 mg PO DAILY RF: 0 beclomethasone dipropionate 40 mcg/actuation Hfa Aerosol Inhaler 1 spray INTRANASAL BID RF: 0 Referrals / Follow Up: Devan Parks MD [Primary Care Provider] - In 1 Week Carley Ziegler PA [PHYSICIAN CHIEF COMPLIANCE OFFICER] - See Referral Note (As scheduled ) Disposition Disposition (needs filled in before D/C Order can be placed): [facility] Facility Charges/Coding Visit Charges Inpatient E&M: 48644 Disch Hosp
--- NOTE | 2021-01-23 12:45 | PCM.PN.HOSP ---
Documented by User: Ashli Baldwin NP, EXTERIOR DESIGNER-C 01/23/21 12:49 Subjective Subjective Patient seen and examined. Denies current symptoms or complaints. Awaiting SNF acceptance. Objective Data Objective Data Vital Signs: Vital Signs Temp Pulse Resp BP Pulse Ox 98.8 F 65 15 145/55 H 98 01/23/21 08:00 01/23/21 11:21 01/23/21 08:00 01/23/21 08:00 01/23/21 08:00 Oxygen Flow Rate (L/min) 2 Oxygen Delivery Method Nasal Cannula Weight: 316 lb 5.813 oz Body Mass Index (BMI) 50.4 Intake & Output: Intake and Output for Last 24 Hours 01/21/21 01/22/21 01/23/21 23:59 23:59 23:59 Intake Total 860 / 860 900 / 900 410 / 410 Output Total 975 / 975 1825 / 1825 600 / 600 Balance -115 / -115 -925 / -925 -190 / -190 Lab / Micro Data Result Diagrams: 01/23/21 06:10 01/23/21 06:10 Labs: Laboratory Results - last 24 hr 01/22/21 01/22/21 01/23/21 16:27 21:42 06:10 WBC 11.0 RBC 3.11 L Hgb 8.4 L Hct 27.2 L MCV 87.5 MCH 27.0 MCHC 30.9 L RDW Std Deviation 44.4 H RDW Coeff of Be 14.2 Plt Count 280 MPV 9.8 Immature Gran % (Auto) 0.400 Neut % (Auto) 79.0 H Lymph % (Auto) 7.7 L [place] % (Auto) 9.4 Eos % (Auto) 2.9 Baso % (Auto) 0.6 Absolute Neuts (auto) 8.7 H Absolute Lymphs (auto) 0.85 Nucleated RBC % 0 Sodium Potassium Chloride Carbon Dioxide Anion Gap BUN Creatinine Estim Creat Clear Calc Est GFR (MDRD) Af Amer Est GFR (MDRD) Non-Af BUN/Creatinine Ratio Glucose Calcium Magnesium POC Glucose 161 H 172 H 01/23/21 01/23/21 01/23/21 06:10 07:59 12:06 WBC RBC Hgb Hct MCV MCH MCHC RDW Std Deviation RDW Coeff of Be Plt Count MPV Immature Gran % (Auto) Neut % (Auto) Lymph % (Auto) [place] % (Auto) Eos % (Auto) Baso % (Auto) Absolute Neuts (auto) Absolute Lymphs (auto) Nucleated RBC % Sodium 129 L Potassium 5.2 H Chloride 95 L Carbon Dioxide 31.0 Anion Gap 3 L BUN 14 Creatinine 1.17 H Estim Creat Clear Calc 44.28 Est GFR (MDRD) Af Amer 59 L Est GFR (MDRD) Non-Af 49 L BUN/Creatinine Ratio 12.0 Glucose 169 H Calcium 9.2 Magnesium 1.9 POC Glucose 162 H 145 H Micro: Microbiology 01/17/21 13:00 Urine, Catheterized Urine Culture - Final Culture exhibits no growth. 01/18/21 09:20 Interface Orders SARS-CoV-2 Antigen (Rapid) - Final Physical Exam Const alert, oriented x3 and no apparent distress Orientation / Consciousness: awake, oriented to person, oriented to place and oriented to time HEENT normocephalic and moist oral mucous membranes Eyes PERRL, EOMs intact bilaterally and conjunctivae normal Neck no lymphadenopathy Resp clear to auscultation bilaterally Auscultation: diminished lung sounds Cardio regular rate, regular rhythm and no murmurs Peripheral Pulses: pulses 2+ throughout GI normal to inspection, nondistended, normoactive bowel sounds, non-tender and non-distended Extremity normal to inspection Skin no rashes or lesions noted Lesions: no lesions Rashes: no rashes Trauma: no lacerations or abrasions Neuro CN's II-XII intact bilaterally, no focal motor deficits, no sensory deficits noted and deep tendon reflexes 2+ bilaterally Psych mental status grossly normal Mood & Affect: flat affect Assessment & Plan Assessment/Plan (1) Acute UTI: PLAN: 1. Acute pyelonephritis-CT of abdomen pelvis admission showed mild degree of bilateral perinephric stranding. IV Rocephin during admission. Urine cultures with no growth. Antibiotics discontinued following completed course. Follow-up with PCP in 1 week. SNF at discharge for rehab. 2. Acute on chronic heart failure with preserved ejection fraction/history of Takotsubo cardiomyopathy, associated mild hypoxia-wean oxygen as tolerated. IV Lasix during admission. Transition to home Lasix regimen 20 mg twice daily. Echocardiogram completed and demonstrates an EF of 60%, pulmonary artery systolic pressure 32 mmHg. Follow-up with cardiology as outpatient as scheduled. 3. History of recent questionable seizure disorder-recent transfer to outside facility for 24-hour EEG. Diagnosed with PRES. not on antiepileptic regimen. 4. Type 2 diabetes mellitus with gastroparesis-continue home insulin regimen. 5. Rheumatoid arthritis-on Plaquenil. 6. Chronic pain syndrome, neuropathy, fibromyalgia-continue home as needed regimen. PT/OT. 7. Anxiety/depression/questionable bipolar disorder-on Cymbalta. 8. Hypertension-stable, continue labetalol. 9. Gout-on allopurinol. 10. Hypothyroidism-continue Synthroid regimen. 11. Chronic iron deficiency anemia-stable. 12. Debility, weakness-SNF for further PT/OT. DVT prophylaxis- Lovenox sc Discharge planning: Awaiting SNF acceptance. This patient was seen by JONATAN Ley under the supervision of Dr. Huertas. Documented by User: Dr. Fina Huertas MD 01/23/21 14:16 Objective Data Lab / Micro Data Result Diagrams: 01/23/21 06:10 01/23/21 06:10 Charges/Coding Addendum Addendum: Hospitalist note: I am seeing this patient in conjunction with Ashli Baldwin. I independently seen and examined the patient. Progress note above, laboratory data and imaging studies reviewed and I concur with above treatment plan. Today, patient denied new complaints. She has been ambulating without any symptoms. Her vitals has been stable, heart rate has been stable as well. She is awaiting insurance approval for placement to longterm facility. - Physical Exam General: Alert, Oriented x3, Cooperative, No apparent distress. HEENT: Atraumatic, PERRLA, EOMI. Neck: Supple, No JVD, Negative Carotid Bruits, Trachea Midline, Thyroid Normal. Lungs: Clear to auscultation, Normal air movement, No rhonchi, No wheeze, No rales. Cardiovascular: Regular rate, Regular Rhythm, Normal S1, Normal S2, PMI Normal. Abdomen: Bowel Sounds Present, Soft, Non Tender, Non-Distended, No Hepato-splenomegaly. Extremities: No clubbing, No cyanosis, No edema Skin: No rashes, No breakdown Neurological: Neuro grossly intact Vital Signs are stable. Assessment and plan: #1 acute pyelonephritis: Mild degree of bilateral perinephric stranding. Patient received IV Rocephin during hospital stay, completed her course. She has been afebrile. No leukocytosis. Urine culture is negative. Awaiting insurance approval for placement to skilled facility. #2 acute on chronic CHF with preserved ejection fraction: She was on IV Lasix, switch to p.o. Lasix. 2D echocardiogram reviewed as above. Plan to continue p.o. Lasix, follow-up with cardiology as outpatient. #3 other chronic medical problems: Stable, continue current medications as above. This note was generated with [employer] dictation software. It may contain incorrect words, spelling, and punctuation that were not noted in checking the note before signing. Visit Charges Inpatient E&M: 37328 Subs Hosp L2
[2021-01-23] MEDS: Furosemide 40 MG/4 ML Vial IV (13:19)
--- NOTE | 2021-01-23 13:59 | PHA.DC.MR ---
Pharmacy Service has performed discharge medication reconciliation for this patient. The patient's discharge medication list was reviewed for discrepancies and discrepancies were resolved. Home Medications levothyroxine 75 mcg PO DAILY 09/17/18 hydroxychloroquine 200 mg PO BIDCM 11/30/18 allopurinol 100 mg tablet 100 mg PO DAILY tab 03/30/19 ondansetron HCl 8 mg PO Q6H PRN PRN 08/29/20 promethazine 25 mg PO Q6H PRN 10/27/20 Novolin R Flexpen 10 unit SUBCUT TIDCM 01/17/21 acetaminophen [Tylenol] 650 mg PO Q6H PRN 01/17/21 aspirin 81 mg PO DAILY 01/17/21 atorvastatin 20 mg PO QHS 01/17/21 beclomethasone dipropionate 1 spray INTRANASAL BID 01/17/21 duloxetine 60 mg PO DAILY 01/17/21 furosemide [Lasix] 20 mg PO BID 01/17/21 labetalol 100 mg PO BID 01/17/21 loperamide [Imodium A-D] 2 mg PO TID 01/17/21 minoxidil 2.5 mg PO DAILY 01/17/21 multivitamin [Daily-Jessica] 1 tab PO DAILY 01/17/21 oxymetazoline 2 spray INTRANASAL Q12H PRN 01/17/21
[2021-01-23] MEDS: oxyCODONE 5 MG Tablet PO (14:21)
--- NOTE | 2021-01-23 16:27 | CASEMGMT ---
Precert was attained for pt to return to the [facility]. SW faxed discharge instructions, staff will fax over COVID test once complete. AJ set up a 6:30pm ambulance w/Physicians. AJ let pt, pt's RNNano at [facility] and pt's sister Linda know time of pickup, all in agreement, no further needs. ARGENTINA Brownlee
[2021-01-23 16:40] LABS: Bedside Glucose 176 mg/dL (70-110)
--- NOTE | 2021-01-23 17:04 | NURSING ---
Attempted to call report to [facility] . No answer.
== END 2021-01-23 18:38 | disposition skilled nursing facility (03) | DRG 292 ==
LOC: ED 14:01 → PCU 16:06
PROVIDERS: Internal Medicine; Admitting Provider Family Medicine; Emergency Provider Emergency Medicine; PCP Family Medicine; Visit Provider Hospitalist
DX: I11.0 Hypertensive heart disease with heart failure (principal); Z68.43 Body mass index [BMI] 50.0-59.9, adult; N10 Acute pyelonephritis; E11.649 Type 2 diabetes mellitus with hypoglycemia without coma; E11.42 Type 2 diabetes mellitus with diabetic polyneuropathy; D50.9 Iron deficiency anemia, unspecified; E03.9 Hypothyroidism, unspecified; I48.0 Paroxysmal atrial fibrillation; G25.81 Restless legs syndrome; E11.43 Type 2 diabetes mellitus with diabetic autonomic (poly)neuropathy; I50.33 Acute on chronic diastolic (congestive) heart failure; E66.01 Morbid (severe) obesity due to excess calories; F31.9 Bipolar disorder, unspecified; G40.909 Epilepsy, unspecified, not intractable, without status epilepticus; Z79.4 Long term (current) use of insulin; M06.9 Rheumatoid arthritis, unspecified; K31.84 Gastroparesis; E78.5 Hyperlipidemia, unspecified; E87.6 Hypokalemia; F41.9 Anxiety disorder, unspecified; M10.9 Gout, unspecified; K21.9 Gastro-esophageal reflux disease without esophagitis; M79.7 Fibromyalgia; G47.33 Obstructive sleep apnea (adult) (pediatric); G43.909 Migraine, unspecified, not intractable, without status migrainosus; R21 Rash and other nonspecific skin eruption; Z79.82 Long term (current) use of aspirin; Z86.73 Personal history of transient ischemic attack (TIA), and cerebral infarction without residual deficits; Z87.19 Personal history of other diseases of the digestive system; Z86.19 Personal history of other infectious and parasitic diseases; Z79.899 Other long term (current) drug therapy; Z87.440 Personal history of urinary (tract) infections
CPT/HCPCS: 36415; 70450; 71045; 74176; 80048; 80053; 80061; 81001; 82962; 83605; 83690; 83735; 83880; 84145; 84443; 84484; 85025; 87086; 87426; 93005; 93306; 93971; 94640; 97110; 97162; 97166; 97530; 97535; 97802; 99251; 99285; J7030; Q9957; A4216; C8929; G0463; J1940; J2405; J3490

== ENCOUNTER → 2021-02-06 04:00 | Outpatient (REF) | payer MEDICARE, MEDICAID, SELFPAY ==
[2021-01-17 16:48] VITALS: BMI 50.4
[2021-02-06 07:46] LABS: Hematocrit 28.2 % (37-47); Hemoglobin 8.6 g/dL (12.0-15.0); Mean Corp Hgb Conc 30.5 g/dL (32-36); Mean Corpuscular Hgb 26.8 pg (27.0-32.0); Mean Corpuscular Volume 87.9 fL (81-99); Mean Platelet Vol. 9.2 fl (6.2-12.0); Platelet Count 326 K/mm3 (150-450); RBC Distribution Width CV 14.5 % (11.6-14.6); RBC Distribution Width SD 46.3 fl (35.1-43.9); Red Blood Count 3.21 M/mm3 (4.2-5.4); White Blood Count 11.7 K/mm3 (4.4-11.0)
[2021-02-06 07:55] LABS: Anion Gap 3 (5-15); BUN 11 mg/dL (7-18); BUN/Creat Ratio 13.2 RATIO (10-20); Calcium,Total 9.8 mg/dL (8.5-10.1); Chloride 94 mmol/L (98-107); Creatinine, Serum 0.84 mg/dL (0.55-1.02); EST Glomerular Filtration Rate 72 mL/min (>60); Est Glom Filt Rate - Afr Amer 88 mL/min (>60); Glucose 65 mg/dL (74-106); Potassium 3.6 mmol/L (3.5-5.1); Sodium Level 135 mmol/L (136-145)
== END ==
LOC: OLS.ACH 04:00
PROVIDERS: PCP Family Medicine; Visit Provider Family Medicine
DX: I67.83 Posterior reversible encephalopathy syndrome (principal)
CPT/HCPCS: 36415; 80048; 85027

== ENCOUNTER → 2021-02-07 05:00 | Outpatient (REF) | payer MEDICARE, MEDICAID, SELFPAY ==
[2021-01-17 16:48] VITALS: BMI 50.4
[2021-02-07 07:22] LABS: Hematocrit 29.8 % (37-47); Hemoglobin 9.2 g/dL (12.0-15.0); Mean Corp Hgb Conc 30.9 g/dL (32-36); Mean Corpuscular Volume 87.4 fL (81-99); Mean Platelet Vol. 9.5 fl (6.2-12.0); Platelet Count 335 K/mm3 (150-450); RBC Distribution Width CV 14.4 % (11.6-14.6); RBC Distribution Width SD 45.8 fl (35.1-43.9); Red Blood Count 3.41 M/mm3 (4.2-5.4); White Blood Count 11.1 K/mm3 (4.4-11.0)
[2021-02-07 07:41] LABS: Anion Gap 6 (5-15); BUN 8 mg/dL (7-18); BUN/Creat Ratio 10.1 RATIO (10-20); Calcium,Total 9.8 mg/dL (8.5-10.1); Chloride 92 mmol/L (98-107); Creatinine, Serum 0.79 mg/dL (0.55-1.02); EST Glomerular Filtration Rate 77 mL/min (>60); Est Glom Filt Rate - Afr Amer 94 mL/min (>60); Glucose 93 mg/dL (74-106); Potassium 3.7 mmol/L (3.5-5.1); Sodium Level 135 mmol/L (136-145)
== END ==
LOC: OLS.ACH 05:00
PROVIDERS: PCP Family Medicine; Visit Provider Family Medicine
DX: E11.43 Type 2 diabetes mellitus with diabetic autonomic (poly)neuropathy (principal); I50.32 Chronic diastolic (congestive) heart failure; E78.5 Hyperlipidemia, unspecified; E86.0 Dehydration; D50.9 Iron deficiency anemia, unspecified
CPT/HCPCS: 36415; 80048; 85027

== ENCOUNTER → 2021-02-13 07:55 | Outpatient (REF) | payer MEDICARE, MEDICAID, SELFPAY ==
[2021-01-17 16:48] VITALS: BMI 50.4
[2021-02-13 10:19] LABS: Hematocrit 30.5 % (37-47); Hemoglobin 9.6 g/dL (12.0-15.0); Mean Corp Hgb Conc 31.5 g/dL (32-36); Mean Corpuscular Hgb 26.8 pg (27.0-32.0); Mean Corpuscular Volume 85.2 fL (81-99); Mean Platelet Vol. 9.5 fl (6.2-12.0); Platelet Count 274 K/mm3 (150-450); RBC Distribution Width CV 14.3 % (11.6-14.6); RBC Distribution Width SD 44.4 fl (35.1-43.9); Red Blood Count 3.58 M/mm3 (4.2-5.4); White Blood Count 11.1 K/mm3 (4.4-11.0)
[2021-02-13 10:59] LABS: Anion Gap 9 (5-15); BUN 8 mg/dL (7-18); BUN/Creat Ratio 8.1 RATIO (10-20); Calcium,Total 9.5 mg/dL (8.5-10.1); Chloride 90 mmol/L (98-107); Creatinine, Serum 0.98 mg/dL (0.55-1.02); EST Glomerular Filtration Rate 60 mL/min (>60); Est Glom Filt Rate - Afr Amer 73 mL/min (>60); Glucose 115 mg/dL (74-106); Potassium 3.1 mmol/L (3.5-5.1); Sodium Level 134 mmol/L (136-145)
== END ==
LOC: OLS.ACH 07:55
PROVIDERS: PCP Family Medicine; Referring Provider Family Medicine; Visit Provider Family Medicine
DX: J18.9 Pneumonia, unspecified organism (principal); J44.9 Chronic obstructive pulmonary disease, unspecified; E87.1 Hypo-osmolality and hyponatremia
CPT/HCPCS: 36415; 80048; 85027

== ENCOUNTER → 2021-02-21 04:00 | Outpatient (REF) | payer MEDICARE, SELFPAY ==
[2021-01-17 16:48] VITALS: BMI 50.4
[2021-02-21 08:16] LABS: Absolute Lymphocyte Count 1.32 X10^3/uL (0.83-4.51); Absolute Neutrophil Count 6.8 X10^3/uL (2.0-7.7); Basophil# 0.07 X10^3/uL; Basophil% 0.7 % (0-1); Eosinophil# 0.49 X10^3/uL; Eosinophils% 5.1 % (0-5); Hematocrit 31.2 % (37-47); Hemoglobin 9.8 g/dL (12.0-15.0); Lymphocyte # 1.32 X10^3/ul (0.83-4.51); Lymphocyte % 13.8 % (19-41); Mean Corp Hgb Conc 31.4 g/dL (32-36); Mean Corpuscular Hgb 26.7 pg (27.0-32.0); Mean Platelet Vol. 9.5 fl (6.2-12.0); Monocyte# 0.87 X10^3/uL; Monocyte% 9.1 % (0-10); NRBC Flagged by Analyzer 0 % (0-5); Neutrophil # 6.77 X10^3/uL (2.7-7.7); Platelet Count 327 K/mm3 (150-450); RBC Distribution Width CV 14.9 % (11.6-14.6); RBC Distribution Width SD 45.4 fl (35.1-43.9); Red Blood Count 3.67 M/mm3 (4.2-5.4); White Blood Count 9.6 K/mm3 (4.4-11.0)
[2021-02-21 08:36] LABS: Vitamin D,25 Hydroxy 37.7 ng/mL
[2021-02-21 08:38] LABS: Albumin, Serum 2.7 g/dL (3.2-5.0); BUN 9 mg/dL (7-18); BUN/Creat Ratio 10.2 RATIO (10-20); Calcium,Total 9.2 mg/dL (8.5-10.1); Chloride 96 mmol/L (98-107); Creatinine, Serum 0.88 mg/dL (0.55-1.02); EST Glomerular Filtration Rate 68 mL/min (>60); Est Glom Filt Rate - Afr Amer 83 mL/min (>60); Glucose 114 mg/dL (74-106); Phosphorus 4.2 mg/dL (2.5-4.9); Potassium 2.6 mmol/L (3.5-5.1); Sodium Level 138 mmol/L (136-145)
[2021-02-21 08:40] LABS: PTHIN 37.7 pg/mL (18.4-80.1)
== END ==
LOC: OLS.ACH 04:00
PROVIDERS: PCP Family Medicine; Referring Provider Family Medicine; Visit Provider Family Medicine
DX: J96.11 Chronic respiratory failure with hypoxia (principal); E11.43 Type 2 diabetes mellitus with diabetic autonomic (poly)neuropathy; E87.1 Hypo-osmolality and hyponatremia; D50.9 Iron deficiency anemia, unspecified; N18.31 Chronic kidney disease, stage 3a; E55.9 Vitamin D deficiency, unspecified; N25.81 Secondary hyperparathyroidism of renal origin
CPT/HCPCS: 36415; 80069; 82306; 83970; 85025

== ENCOUNTER → 2021-02-23 05:00 | Outpatient (REF) | payer MEDICARE, SELFPAY ==
[2021-01-17 16:48] VITALS: BMI 50.4
== END ==
LOC: OLS.ACH 05:00
PROVIDERS: PCP Family Medicine; Referring Provider Family Medicine; Visit Provider Family Medicine
DX: E87.6 Hypokalemia (principal)
CPT/HCPCS: 36415; 84132

== ENCOUNTER → 2021-02-27 05:00 | Outpatient (REF) | payer MEDICARE, SELFPAY ==
[2021-01-17 16:48] VITALS: BMI 50.4
[2021-02-27 08:44] LABS: Absolute Lymphocyte Count 1.79 X10^3/uL (0.83-4.51); Anion Gap 6 (5-15); BUN 8 mg/dL (7-18); BUN/Creat Ratio 8.6 RATIO (10-20); Basophil# 0.12 X10^3/uL; Basophil% 1.2 % (0-1); Calcium,Total 8.8 mg/dL (8.5-10.1); Chloride 104 mmol/L (98-107); Creatinine, Serum 0.93 mg/dL (0.55-1.02); EST Glomerular Filtration Rate 64 mL/min (>60); Eosinophil# 0.42 X10^3/uL; Eosinophils% 4.1 % (0-5); Est Glom Filt Rate - Afr Amer 78 mL/min (>60); Glucose 140 mg/dL (74-106); Hematocrit 35.7 % (37-47); Lymphocyte # 1.79 X10^3/ul (0.83-4.51); Lymphocyte % 17.6 % (19-41); Mean Corp Hgb Conc 30.8 g/dL (32-36); Mean Corpuscular Hgb 26.7 pg (27.0-32.0); Mean Corpuscular Volume 86.7 fL (81-99); Mean Platelet Vol. 9.4 fl (6.2-12.0); Monocyte# 0.77 X10^3/uL; Monocyte% 7.6 % (0-10); NRBC Flagged by Analyzer 0 % (0-5); Neutrophil # 7.02 X10^3/uL (2.7-7.7); Neutrophil % 69.1 % (47-70); Platelet Count 385 K/mm3 (150-450); Potassium 4.2 mmol/L (3.5-5.1); RBC Distribution Width CV 15.3 % (11.6-14.6); RBC Distribution Width SD 48.4 fl (35.1-43.9); Red Blood Count 4.12 M/mm3 (4.2-5.4); Sodium Level 138 mmol/L (136-145); White Blood Count 10.2 K/mm3 (4.4-11.0)
== END ==
LOC: OLS.ACH 05:00
PROVIDERS: PCP Family Medicine; Visit Provider Family Medicine
DX: J96.11 Chronic respiratory failure with hypoxia (principal); E11.43 Type 2 diabetes mellitus with diabetic autonomic (poly)neuropathy; E87.1 Hypo-osmolality and hyponatremia; D50.9 Iron deficiency anemia, unspecified
CPT/HCPCS: 36415; 80048; 85025

== ENCOUNTER → 2021-03-06 05:00 | Outpatient (REF) | payer MEDICARE, MEDICAID, SELFPAY ==
[2021-01-17 16:48] VITALS: BMI 50.4
[2021-03-06 08:45] LABS: Absolute Lymphocyte Count 1.51 X10^3/uL (0.83-4.51); Absolute Neutrophil Count 8.9 X10^3/uL (2.0-7.7); Basophil# 0.09 X10^3/uL; Basophil% 0.8 % (0-1); Eosinophil# 0.41 X10^3/uL; Eosinophils% 3.5 % (0-5); Hematocrit 36.7 % (37-47); Hemoglobin 11.5 g/dL (12.0-15.0); Lymphocyte # 1.51 X10^3/ul (0.83-4.51); Lymphocyte % 12.8 % (19-41); Mean Corp Hgb Conc 31.3 g/dL (32-36); Mean Corpuscular Hgb 27.1 pg (27.0-32.0); Mean Corpuscular Volume 86.6 fL (81-99); Mean Platelet Vol. 9.9 fl (6.2-12.0); Monocyte# 0.82 X10^3/uL; Monocyte% 6.9 % (0-10); NRBC Flagged by Analyzer 0 % (0-5); Neutrophil # 8.94 X10^3/uL (2.7-7.7); Neutrophil % 75.7 % (47-70); Platelet Count 315 K/mm3 (150-450); RBC Distribution Width CV 15.5 % (11.6-14.6); Red Blood Count 4.24 M/mm3 (4.2-5.4); White Blood Count 11.8 K/mm3 (4.4-11.0)
[2021-03-06 09:00] LABS: Anion Gap 6 (5-15); BUN 9 mg/dL (7-18); BUN/Creat Ratio 9.7 RATIO (10-20); Calcium,Total 9.2 mg/dL (8.5-10.1); Chloride 101 mmol/L (98-107); Creatinine, Serum 0.92 mg/dL (0.55-1.02); EST Glomerular Filtration Rate 65 mL/min (>60); Est Glom Filt Rate - Afr Amer 78 mL/min (>60); Glucose 161 mg/dL (74-106); Potassium 4.3 mmol/L (3.5-5.1); Sodium Level 136 mmol/L (136-145); Uric Acid 5.4 mg/dL (2.6-6.0)
[2021-03-22 15:06] VITALS: BMI 44.2
== END ==
LOC: OLS.ACH 05:00
PROVIDERS: PCP Family Medicine; Visit Provider Family Medicine
DX: M10.9 Gout, unspecified (principal); J96.11 Chronic respiratory failure with hypoxia; E11.43 Type 2 diabetes mellitus with diabetic autonomic (poly)neuropathy; E87.1 Hypo-osmolality and hyponatremia; D50.9 Iron deficiency anemia, unspecified
CPT/HCPCS: 36415; 80048; 84550; 85025

== ENCOUNTER → 2021-03-13 05:00 | Outpatient (REF) | payer MEDICARE, SELFPAY ==
[2021-01-17 16:48] VITALS: BMI 50.4
[2021-03-13 08:35] LABS: Absolute Neutrophil Count 8.4 X10^3/uL (2.0-7.7); Basophil# 0.08 X10^3/uL; Basophil% 0.7 % (0-1); Eosinophil# 0.34 X10^3/uL; Eosinophils% 2.9 % (0-5); Hematocrit 34.6 % (37-47); Hemoglobin 10.9 g/dL (12.0-15.0); Lymphocyte % 16.2 % (19-41); Mean Corp Hgb Conc 31.5 g/dL (32-36); Mean Corpuscular Volume 85.6 fL (81-99); Mean Platelet Vol. 10.5 fl (6.2-12.0); Monocyte# 1.02 X10^3/uL; Monocyte% 8.7 % (0-10); NRBC Flagged by Analyzer 0 % (0-5); Neutrophil # 8.37 X10^3/uL (2.7-7.7); Neutrophil % 71.2 % (47-70); Platelet Count 271 K/mm3 (150-450); RBC Distribution Width CV 15.3 % (11.6-14.6); RBC Distribution Width SD 47.8 fl (35.1-43.9); Red Blood Count 4.04 M/mm3 (4.2-5.4); White Blood Count 11.8 K/mm3 (4.4-11.0)
[2021-03-13 08:47] LABS: Anion Gap 6 (5-15); BUN 8 mg/dL (7-18); BUN/Creat Ratio 9.1 RATIO (10-20); Calcium,Total 8.7 mg/dL (8.5-10.1); Chloride 103 mmol/L (98-107); Creatinine, Serum 0.88 mg/dL (0.55-1.02); EST Glomerular Filtration Rate 68 mL/min (>60); Est Glom Filt Rate - Afr Amer 82 mL/min (>60); Glucose 120 mg/dL (74-106); Potassium 4.2 mmol/L (3.5-5.1); Sodium Level 135 mmol/L (136-145)
== END ==
LOC: OLS.ACH 05:00
PROVIDERS: PCP Family Medicine; Visit Provider Family Medicine
DX: J96.11 Chronic respiratory failure with hypoxia (principal); E11.43 Type 2 diabetes mellitus with diabetic autonomic (poly)neuropathy; E87.1 Hypo-osmolality and hyponatremia; D50.9 Iron deficiency anemia, unspecified
CPT/HCPCS: 36415; 80048; 85025

== ENCOUNTER → 2021-03-20 04:00 | Outpatient (REF) | payer MEDICARE, SELFPAY ==
[2021-01-17 16:48] VITALS: BMI 50.4
[2021-03-20 08:20] LABS: Absolute Neutrophil Count 8.5 X10^3/uL (2.0-7.7); Basophil# 0.07 X10^3/uL; Basophil% 0.6 % (0-1); Eosinophil# 0.34 X10^3/uL; Eosinophils% 2.9 % (0-5); Hematocrit 34.8 % (37-47); Hemoglobin 10.9 g/dL (12.0-15.0); Lymphocyte % 15.5 % (19-41); Mean Corp Hgb Conc 31.3 g/dL (32-36); Mean Corpuscular Volume 86.4 fL (81-99); Mean Platelet Vol. 10.3 fl (6.2-12.0); Monocyte% 7.7 % (0-10); NRBC Flagged by Analyzer 0 % (0-5); Neutrophil # 8.47 X10^3/uL (2.7-7.7); Neutrophil % 72.8 % (47-70); Platelet Count 276 K/mm3 (150-450); RBC Distribution Width CV 15.4 % (11.6-14.6); RBC Distribution Width SD 48.8 fl (35.1-43.9); Red Blood Count 4.03 M/mm3 (4.2-5.4); White Blood Count 11.6 K/mm3 (4.4-11.0)
[2021-03-20 08:44] LABS: Anion Gap 7 (5-15); BUN 9 mg/dL (7-18); BUN/Creat Ratio 10.1 RATIO (10-20); Calcium,Total 8.8 mg/dL (8.5-10.1); Chloride 104 mmol/L (98-107); Creatinine, Serum 0.89 mg/dL (0.55-1.02); EST Glomerular Filtration Rate 67 mL/min (>60); Est Glom Filt Rate - Afr Amer 81 mL/min (>60); Glucose 115 mg/dL (74-106); Sodium Level 137 mmol/L (136-145)
[2021-03-22 15:06] VITALS: BMI 44.2
== END ==
LOC: OLS.ACH 04:00
PROVIDERS: PCP Family Medicine; Visit Provider Family Medicine
DX: E87.1 Hypo-osmolality and hyponatremia (principal); E11.43 Type 2 diabetes mellitus with diabetic autonomic (poly)neuropathy; J96.11 Chronic respiratory failure with hypoxia
CPT/HCPCS: 36415; 80048; 85025

== ENCOUNTER → 2021-03-27 05:00 | Outpatient (REF) | payer MEDICARE, SELFPAY ==
[2021-03-22 15:06] VITALS: BMI 44.2
[2021-03-27 08:36] LABS: Absolute Lymphocyte Count 1.78 X10^3/uL (0.83-4.51); Absolute Neutrophil Count 8.8 X10^3/uL (2.0-7.7); Basophil# 0.07 X10^3/uL; Basophil% 0.6 % (0-1); Eosinophil# 0.32 X10^3/uL; Eosinophils% 2.7 % (0-5); Hematocrit 35.5 % (37-47); Lymphocyte # 1.78 X10^3/ul (0.83-4.51); Lymphocyte % 15.1 % (19-41); Mean Corpuscular Hgb 26.7 pg (27.0-32.0); Mean Corpuscular Volume 86.2 fL (81-99); Monocyte% 6.8 % (0-10); NRBC Flagged by Analyzer 0 % (0-5); Neutrophil # 8.76 X10^3/uL (2.7-7.7); Neutrophil % 74.4 % (47-70); Platelet Count 339 K/mm3 (150-450); RBC Distribution Width CV 15.3 % (11.6-14.6); RBC Distribution Width SD 48.6 fl (35.1-43.9); Red Blood Count 4.12 M/mm3 (4.2-5.4); White Blood Count 11.8 K/mm3 (4.4-11.0)
[2021-03-27 08:51] LABS: Anion Gap 7 (5-15); BUN 10 mg/dL (7-18); BUN/Creat Ratio 11.4 RATIO (10-20); Chloride 103 mmol/L (98-107); Creatinine, Serum 0.88 mg/dL (0.55-1.02); EST Glomerular Filtration Rate 69 mL/min (>60); Est Glom Filt Rate - Afr Amer 83 mL/min (>60); Glucose 86 mg/dL (74-106); Potassium 3.6 mmol/L (3.5-5.1); Sodium Level 137 mmol/L (136-145)
== END ==
LOC: OLS.ACH 05:00
PROVIDERS: PCP Family Medicine; Visit Provider Family Medicine
DX: E87.1 Hypo-osmolality and hyponatremia (principal); E11.43 Type 2 diabetes mellitus with diabetic autonomic (poly)neuropathy; J96.11 Chronic respiratory failure with hypoxia
CPT/HCPCS: 36415; 80048; 85025

== ENCOUNTER → 2021-04-03 04:00 | Outpatient (REF) | payer MEDICARE, SELFPAY ==
[2021-03-22 15:06] VITALS: BMI 44.2
[2021-04-03 08:23] LABS: Absolute Lymphocyte Count 2.01 X10^3/uL (0.83-4.51); Absolute Neutrophil Count 9.8 X10^3/uL (2.0-7.7); Basophil# 0.08 X10^3/uL; Basophil% 0.6 % (0-1); Eosinophil# 0.29 X10^3/uL; Eosinophils% 2.2 % (0-5); Hematocrit 34.1 % (37-47); Hemoglobin 10.9 g/dL (12.0-15.0); Lymphocyte # 2.01 X10^3/ul (0.83-4.51); Lymphocyte % 15.3 % (19-41); Mean Corpuscular Hgb 27.5 pg (27.0-32.0); Mean Corpuscular Volume 85.9 fL (81-99); Mean Platelet Vol. 9.6 fl (6.2-12.0); Monocyte# 0.92 X10^3/uL; NRBC Flagged by Analyzer 0 % (0-5); Neutrophil % 74.4 % (47-70); Platelet Count 323 K/mm3 (150-450); RBC Distribution Width CV 15.2 % (11.6-14.6); RBC Distribution Width SD 47.8 fl (35.1-43.9); Red Blood Count 3.97 M/mm3 (4.2-5.4); White Blood Count 13.2 K/mm3 (4.4-11.0)
[2021-04-03 08:26] LABS: Anion Gap 5 (5-15); BUN 9 mg/dL (7-18); BUN/Creat Ratio 9.7 RATIO (10-20); Chloride 103 mmol/L (98-107); Creatinine, Serum 0.93 mg/dL (0.55-1.02); EST Glomerular Filtration Rate 64 mL/min (>60); Est Glom Filt Rate - Afr Amer 77 mL/min (>60); Glucose 122 mg/dL (74-106); Potassium 3.7 mmol/L (3.5-5.1); Sodium Level 137 mmol/L (136-145)
== END ==
LOC: OLS.ACH 04:00
PROVIDERS: PCP Family Medicine; Referring Provider Family Medicine; Visit Provider Family Medicine
DX: E87.1 Hypo-osmolality and hyponatremia (principal); E11.43 Type 2 diabetes mellitus with diabetic autonomic (poly)neuropathy; J96.11 Chronic respiratory failure with hypoxia
CPT/HCPCS: 36415; 80048; 85025

== ENCOUNTER → 2021-04-10 04:00 | Outpatient (REF) | payer MEDICARE, SELFPAY ==
[2021-04-10 08:13] LABS: Absolute Neutrophil Count 7.7 X10^3/uL (2.0-7.7); Basophil# 0.08 X10^3/uL; Basophil% 0.7 % (0-1); Eosinophil# 0.29 X10^3/uL; Eosinophils% 2.7 % (0-5); Hematocrit 34.3 % (37-47); Hemoglobin 10.7 g/dL (12.0-15.0); Lymphocyte % 17.6 % (19-41); Mean Corp Hgb Conc 31.2 g/dL (32-36); Mean Corpuscular Hgb 27.2 pg (27.0-32.0); Mean Corpuscular Volume 87.3 fL (81-99); Mean Platelet Vol. 9.8 fl (6.2-12.0); Monocyte# 0.79 X10^3/uL; Monocyte% 7.3 % (0-10); NRBC Flagged by Analyzer 0 % (0-5); Neutrophil # 7.69 X10^3/uL (2.7-7.7); Neutrophil % 71.4 % (47-70); Platelet Count 284 K/mm3 (150-450); Red Blood Count 3.93 M/mm3 (4.2-5.4); White Blood Count 10.8 K/mm3 (4.4-11.0)
[2021-04-10 08:37] LABS: Anion Gap 5 (5-15); BUN 8 mg/dL (7-18); BUN/Creat Ratio 9.2 RATIO (10-20); Calcium,Total 8.9 mg/dL (8.5-10.1); Chloride 103 mmol/L (98-107); Creatinine, Serum 0.87 mg/dL (0.55-1.02); EST Glomerular Filtration Rate 69 mL/min (>60); Est Glom Filt Rate - Afr Amer 84 mL/min (>60); Glucose 139 mg/dL (74-106); Potassium 3.5 mmol/L (3.5-5.1); Sodium Level 138 mmol/L (136-145)
== END ==
LOC: OLS.ACH 04:00
PROVIDERS: PCP Family Medicine; Referring Provider Family Medicine; Visit Provider Family Medicine
DX: E87.1 Hypo-osmolality and hyponatremia (principal); E11.43 Type 2 diabetes mellitus with diabetic autonomic (poly)neuropathy; J96.11 Chronic respiratory failure with hypoxia
CPT/HCPCS: 36415; 80048; 85025

== ENCOUNTER → 2021-04-17 04:00 | Outpatient (REF) | payer MEDICARE, MEDICAID, SELFPAY ==
[2021-04-17 07:38] LABS: Absolute Lymphocyte Count 1.75 X10^3/uL (0.83-4.51); Absolute Neutrophil Count 7.4 X10^3/uL (2.0-7.7); Basophil# 0.08 X10^3/uL; Basophil% 0.8 % (0-1); Eosinophils% 2.9 % (0-5); Hematocrit 35.6 % (37-47); Hemoglobin 11.1 g/dL (12.0-15.0); Lymphocyte # 1.75 X10^3/ul (0.83-4.51); Mean Corp Hgb Conc 31.2 g/dL (32-36); Mean Corpuscular Hgb 27.2 pg (27.0-32.0); Mean Corpuscular Volume 87.3 fL (81-99); Mean Platelet Vol. 9.9 fl (6.2-12.0); Monocyte# 0.76 X10^3/uL; Monocyte% 7.4 % (0-10); NRBC Flagged by Analyzer 0 % (0-5); Neutrophil # 7.36 X10^3/uL (2.7-7.7); Neutrophil % 71.5 % (47-70); Platelet Count 308 K/mm3 (150-450); Red Blood Count 4.08 M/mm3 (4.2-5.4); White Blood Count 10.3 K/mm3 (4.4-11.0)
[2021-04-17 07:51] LABS: Anion Gap 6 (5-15); BUN 9 mg/dL (7-18); BUN/Creat Ratio 9.8 RATIO (10-20); Calcium,Total 8.8 mg/dL (8.5-10.1); Chloride 104 mmol/L (98-107); Creatinine, Serum 0.92 mg/dL (0.55-1.02); EST Glomerular Filtration Rate 65 mL/min (>60); Est Glom Filt Rate - Afr Amer 78 mL/min (>60); Glucose 95 mg/dL (74-106); Potassium 3.6 mmol/L (3.5-5.1); Sodium Level 139 mmol/L (136-145)
== END ==
LOC: OLS.ACH 04:00
PROVIDERS: PCP Family Medicine; Visit Provider Family Medicine
DX: E87.1 Hypo-osmolality and hyponatremia (principal); E11.43 Type 2 diabetes mellitus with diabetic autonomic (poly)neuropathy; J96.11 Chronic respiratory failure with hypoxia
CPT/HCPCS: 36415; 80048; 85025

== ENCOUNTER → 2021-05-24 | Outpatient (CLI) | payer MEDICARE, MEDICAID, SELFPAY ==
[2021-05-24 20:01] LABS: M R Staph aureus DNA By PCR Negative (Negative); Probe Check PASS; Specimen Processing Control PASS; Staph aureus DNA By PCR NEGATIVE (Negative)
== END | disposition home or self-care (01) ==
PROVIDERS: PCP Family Medicine; Referring Provider Podiatrist; Visit Provider Podiatrist
DX: L97.529 Non-pressure chronic ulcer of other part of left foot with unspecified severity (principal)
CPT/HCPCS: 87070; 87075; 87077; 87186; 87205; 87640

== ENCOUNTER → 2021-05-31 10:21 | Outpatient (CLI) | payer MEDICARE, MEDICAID, SELFPAY ==
[2021-05-31 11:39] LABS: BNP,B-Type NATRIURETIC PEPTIDE 65.4 pg/mL (0-100)
== END ==
PROVIDERS: PCP Family Medicine; Referring Provider Internal Medicine Pulmonary Disease; Visit Provider Internal Medicine Pulmonary Disease
DX: R05.9 Cough, unspecified (principal); I13.0 Hypertensive heart and chronic kidney disease with heart failure and stage 1 through stage 4 chronic kidney disease, or unspecified chronic kidney disease; I50.9 Heart failure, unspecified; E11.621 Type 2 diabetes mellitus with foot ulcer; E11.22 Type 2 diabetes mellitus with diabetic chronic kidney disease; M06.9 Rheumatoid arthritis, unspecified; M79.7 Fibromyalgia; L97.522 Non-pressure chronic ulcer of other part of left foot with fat layer exposed; N18.9 Chronic kidney disease, unspecified; Z68.41 Body mass index [BMI] 40.0-44.9, adult; E66.9 Obesity, unspecified; K21.9 Gastro-esophageal reflux disease without esophagitis; E03.9 Hypothyroidism, unspecified; I48.0 Paroxysmal atrial fibrillation; G47.33 Obstructive sleep apnea (adult) (pediatric); L97.512 Non-pressure chronic ulcer of other part of right foot with fat layer exposed; E78.5 Hyperlipidemia, unspecified; E11.51 Type 2 diabetes mellitus with diabetic peripheral angiopathy without gangrene; E11.42 Type 2 diabetes mellitus with diabetic polyneuropathy; M20.41 Other hammer toe(s) (acquired), right foot; M20.42 Other hammer toe(s) (acquired), left foot; M10.9 Gout, unspecified; I87.2 Venous insufficiency (chronic) (peripheral); L60.0 Ingrowing nail; L03.116 Cellulitis of left lower limb; Z20.822 Contact with and (suspected) exposure to COVID-19; Z79.899 Other long term (current) drug therapy; Z79.890 Hormone replacement therapy; Z79.4 Long term (current) use of insulin; Z89.421 Acquired absence of other right toe(s)
CPT/HCPCS: 11042; 36415; 83880; 87635; C9803; U0005; U0003

== ENCOUNTER 2021-06-14 14:30 | Outpatient (RCR) | payer MEDICARE, MEDICAID, SELFPAY ==
[2021-05-31 14:12] VITALS: BP 150/73; PULSE 94; RESP 20; TEMP 36.1; BMI 46.6
--- NOTE | 2021-05-31 15:50 | PCM.WC.HP ---
History of Present Illness Date of Service: 05/31/21 Chief Complaint: Ulcer to right (fourth toe) and left foot (third toe) History of Wound: This 65-year-old female with significant past medical history of diabetes, hypothyroidism, rheumatoid arthritis, CKD, CHF, cardiomyopathy, fibromyalgia, GERD, seizure disorder, depression, history of iron deficiency anemia, and hypertension and obesity presents for evaluation of toe ulcers. She relates the onset has been at least since December 2020. Patient currently denies any feelings of nausea, vomiting, fever, chills. She did have prior redness and was placed on doxycycline at [facility]. She denies odor or streaking. She is been changing the dressing with antibiotic ointment and a Band-Aid. She has been using surgical shoes. She thinks she had prior x-rays at the [facility] and she is not sure when she last had lab work done because she was recently at a assisted facility. She relates she does have a new cough and was recently tested for COVID-19 which she is waiting for the results. Progress of Wound: Stable [facility] Medical History (Updated 05/31/21 @ 16:[address] Juli Ascencio, DPM) Abdominal pain Benign essential HTN Candidiasis of breast Chronic pain syndrome Depression Diabetic gastroparesis Diabetic gastroparesis Diabetic infection of right foot Diverticulitis Dysphagia Fibromyalgia Fibromyalgia GERD (gastroesophageal reflux disease) Gout Hammer toe of left foot Hammer toe of right foot History of CVA (cerebrovascular accident) HLD (hyperlipidemia) Hypothyroidism Iron deficiency anemia Morbid obesity with BMI of 40.0-44.9, adult NSTEMI (non-ST elevated myocardial infarction) QIAN (obstructive sleep apnea) Paroxysmal atrial fibrillation Restless leg syndrome Rheumatoid arthritis Seizure disorder Sepsis Takotsubo cardiomyopathy Takotsubo cardiomyopathy Thyroid disease Toe osteomyelitis, right Type 2 diabetes mellitus 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 2 diabetes mellitus with diabetic polyneuropathy Ulcer of right foot Ulcer of right foot with fat layer exposed UTI (urinary tract infection) Home Medications hydroxychloroquine 200 mg PO BIDCM 11/30/18 [History Last Taken 01/17/21] allopurinol 100 mg tablet 100 mg PO DAILY tab 03/30/19 [History Last Taken 01/17/21 08:00] atorvastatin 20 mg PO QHS 01/17/21 [History Last Taken 01/16/21] duloxetine 60 mg PO DAILY 01/17/21 [History Last Taken 01/17/21] labetalol 100 mg PO BID 01/17/21 [History Last Taken 01/17/21] minoxidil 2.5 mg PO DAILY 01/17/21 [History Last Taken 01/17/21] haloperidol lactate 2 mg/mL oral concentrate 0.5 mg PO TID PRN ml 03/22/21 [History Last Taken Unknown] levothyroxine 75 mcg tablet 88 mcg PO DAILY tab 03/22/21 [History Last Taken Unknown] mirtazapine 15 mg tablet 15 mg PO DAILY 03/22/21 [History Last Taken Unknown] pantoprazole 40 mg tablet,delayed release 40 mg PO DAILY 03/22/21 [History Last Taken Unknown] ropinirole 1 mg tablet 1 mg PO DAILY 03/22/21 [History Last Taken Unknown] thiamine HCl (vitamin B1) 100 mg tablet 100 mg PO DAILY 03/22/21 [History Last Taken Unknown] carboxymethylcellulose sodium 1 % eye drops 1 drp OPHTHALMIC (EYE) TID 05/25/21 [History Last Taken Unknown] duloxetine 30 mg capsule,delayed release 30 mg PO DAILY 05/25/21 [History Last Taken Unknown] flash glucose scanning reader #1 ea 05/25/21 [Rx Last Taken Unknown] flash glucose sensor #2 ea 05/25/21 [Rx Last Taken Unknown] insulin glargine 100 unit/mL (3 mL) subcutaneous pen 30 unit SUBCUT BID ml 05/25/21 [History Last Taken Unknown] insulin lispro 100 unit/mL subcutaneous pen 1 sliding scale dose SUBCUT USEASDIRECTD 05/25/21 [History Last Taken Unknown] polyethylene glycol 3350 17 gram/dose oral powder 17 g PO DAILY 05/25/21 [History Last Taken Unknown] potassium chloride 20 mEq tablet,extended release 20 meq PO TID 05/25/21 [History Last Taken Unknown] sennosides 8.6 mg-docusate sodium 50 mg tablet 1 tab-cap PO QHS PRN 05/25/21 [History Last Taken Unknown] acetaminophen [Acetaminophen Extra Strength] 1,000 mg PO Q6H PRN 05/31/21 [History Last Taken Unknown] albuterol sulfate 2 puff INHALATION Q4H PRN 05/31/21 [History Last Taken Unknown] Allergy/AdvReac Type Severity Reaction Status Date / Time ciprofloxacin [From Cipro] Allergy short of Verified 05/31/21 14:44 breath cyclobenzaprine Allergy rash Verified 05/31/21 14:44 levofloxacin [From Levaquin] Allergy PT UNSURE Verified 05/31/21 14:44 OF REACTION sulfamethoxazole Allergy itch Verified 05/31/21 14:44 topiramate Allergy PT UNSURE Verified 05/31/21 14:44 OF REACTION trimethoprim Allergy itch Verified 05/31/21 14:44 valacyclovir [From Valtrex] Allergy pt unsure Verified 05/31/21 14:44 ketorolac [From Toradol] AdvReac Other Verified 05/31/21 14:44 Family History Mother Myocardial infarction Asthma Diabetes Father Congestive heart failure Other Heart disease Surgical History history left foot surgery History of cholecystectomy History of knee surgery History of left heart catheterization (03/09/19) Social History (Updated 01/17/21 @ 14:[address] Sandra Burks MD) household members: none housing: long term Smoking Status: Never smoker alcohol intake: never substance use type: does not use ROS Constitutional Constitutional: Reports lethargy Cardiovascular Cardiovascular: Denies chest pain or claudication Respiratory/Chest Respiratory/Chest: Reports cough Gastrointestinal Gastrointestinal: Denies diarrhea or nausea Musculoskeletal Musculoskeletal: Reports joint stiffness, numbness and stiffness Integumentary Integumentary: Reports skin ulcer Neurologic Neurologic: Reports restless legs Psychiatric Psychiatric: Reports depression Vital Signs Vital Signs Vital Signs: 05/31/21 14:12 Temperature 97 F L Temperature Source Temporal Pulse Rate 94 Respiratory Rate 20 H Blood Pressure 150/73 H Blood Pressure Mean 98 Blood Pressure Source Monitor Blood Pressure Position Sitting Blood Pressure Location Right Forearm Oxygen Delivery Method Room Air Weight Weight: 131.088 kg Body Mass Index (BMI) 46.6 Physical Exam Const alert and oriented x3 General Appearance: cooperative HEENT normocephalic Extremity Extremity Narrative: No calf tenderness Diminished pulses Muscle wasting noted Significant foot deformities consistent with rheumatoid arthritis. She has lateral hallux deviation with very prominent medial eminence of the first metatarsal head consistent with a hallux valgus. She has dorsal contraction of lesser toes with a right second toe amputation noted. The lesser toes are also overriding each other in particular the right third toe is superior to the fourth toe and there is an incurvated medial nail border of the fourth toe adjacent to the ulcer site. No bogginess or fluctuance Compartments remain soft to palpate bilateral lower extremities General Extremity: edema and no tenderness to palpation of joints or extremities; Negative for cyanosis Skin Skin Narrative: no purulence, no streaking, no odor, no infection. Superficial granulation tissue noted. No exposed bone or joint. No necrosis. No interdigital maceration. Skin discontinuity right fourth toe adjacent to medial nail border. Skin discontinuity left third dorsal toe adjacent to the proximal interphalangeal joint that is nonreducible and a dorsally contracted position consistent with a hammertoe General Skin Exam: Negative for erythema Neuro Neuro Narrative: lack of normal epicritic sensation via light touch is consistent with neuropathy status Psych cooperative and affect normal Debridement Note Debridement Note Wound debrided: right fourth toe, left third toe Wound Grade/Stage: 1 Type of Debridement: Excisional debridement Anesthesia Used: 4% Lidocaine Solution Depth: in the subcutaneous layer Percentage of wound debrided: 100 Instrument Used: #15 blade Tissue Removed: fibrous, devitalized subcutaneous, biofilm, slough Severity: Fat Layer Exposed Amount of bleeding with debridement: Mild Bleeding Controlled with: Pressure Patient tolerated procedure: Patient tolerated procedure well Post-Debridement Measurements and Additional Note: Post-Debridement Measurements/Treatment - Nurse 1 - General Ulcer Assessment Start: 05/31/21 14:10 Freq: Status: Active Protocol: .DON Activity Type Activity Date Activity User E-Sign Co-Sign Detail Recorded Client Recorded Date Recorded By Document 05/31/21 14:12 [facility] [id number] 05/31/21 14:41 [facility] 05/31/21 14:12 - Today's Visit Information Type of service Initial Visit Arrival Mode Ambulatory,Cane Transfer Assistance None Patient Identification Verified (Name & Yes ) Patient Requires Transmission-Based No Precautions Finger Stick Blood Sugar(mg/dl) (if 127 indicated): Blood Sugar Stated by Patient Height and Weight Height 5 ft 6 in Weight 131.088 kg Weight in Pounds 289.0 lbs Weight Measurement Method Stated by Patient Body Mass Index (BMI) 46.6 BMI Classification Obese BSA - Filomena 2.34 Vital Signs Temperature (97.8 F-99.1 F) 97 F L Temperature Source Temporal Pulse Rate (60-100) 94 Pulse Location Monitor Respiratory Rate (12-18) 20 H Respiratory rate source Observation Oxygen Delivery Method Room Air Blood Pressure (90/60-120/80) 150/73 H Blood Pressure Mean 98 Source Monitor Position Sitting Blood Pressure Location Right Forearm History Since Last Visit- (Skip if this is Patient's initial visit) Left Footwear Surgical Shoe with pressure relief insole Right Footwear Surgical Shoe with pressure relief insole Pain Scale: 0-10 Numeric Is Patient Pain Free? Yes Lower Extremity Assessment/ Foot Assessment/ Toe Nail Assessment Right -Posterior Tibial Palpable No -Posterior Tibial Doppler Monophasic -Dorsalis Pedis Palpable Yes -Dorsalis Pedis Doppler Multiphasic -Extremity Color Pale -Hair Growth on Legs Yes -Hair Growth on Toes No -Temperature of Extremity Warm -Capillary Refill Less than 3 Seconds -Other Deformity Yes: both feet visibly deformed. -Prior Foot Ulcer Yes -Charcot Joint No -Prior Amputation Yes -Thick Yes -Discolored Yes -Deformed No -Improper Length & Hygeine No Left -Dorsalis Pedis Palpable Yes -Dorsalis Pedis Doppler Multiphasic -Extremity Color Pale -Hair Growth on Legs Yes -Hair Growth on Toes No -Temperature of Extremity Warm -Capillary Refill Less than 3 Seconds -Other Deformity Yes -Prior Foot Ulcer No -Charcot Joint No -Prior Amputation No -Thick Yes -Discolored Yes -Deformed Yes -Improper Length & Hygeine No Neuropathy Assessment Feet - Top Side and Bottom <Entered> (a) Communication Assessment Preferred language Citizen [place] Residential Supervisor Required No Able to Read Yes Able to Write Yes Communication Tools None Right Hearing Abillity Normal Left Hearing Abillity Normal Visual Assistive Devices Glasses Teaching Assessment Preferences Verbal,Written, Audio/Visual, Demonstration Barriers to Learning None Readiness To Learn Excellent Willingness to Engage in Self Management High Activies Readiness to Engage in Self Management High Activities Anxiety Level Calm Cooperation Cooperative Perception Coherent Interest in Health Problem Asks Questions Education Importance Acknowledges Need Does Patient Smoke tobacco or other No substances Smoking Status Never smoker Is Patient Diabetic Yes Functional Assessment Recent Decline in Ability to Perform Ambulation Culture/Faith/Senior Graduate Advisor Cultural/Faith Needs that may affect No Treatment Plan Teaching: Wound Center *Welcome to the Wound Center -Person Taught Patient Welcome to the Wound Care Center Citizen Of [place] (a) 1 - + 2 - - 3 - + 4 - - 5 - - - Nurse 1 - General Ulcer Measurement Start: 05/31/21 14:10 Freq: Status: Active Protocol: Activity Type Activity Date Activity User E-Sign Co-Sign Detail Recorded Client Recorded Date Recorded By Document 05/31/21 14:12 [facility] [id number] 05/31/21 14:41 [facility] 05/31/21 14:12 Wound Center Nurse 1 #3- R 4TH TOE -Combined with other wound No -Current Size (cm) - Length 0.1 -Current Size (cm) - Width 0.1 -Current Size (cm) - Depth 0.1 -Total Square Cm 0.01 -Date of Last Picture (Recall this 05/31/21 field) -Photo Taken Yes -Epithelialization None Present -Tunneling No -Undermining/Tunneling No -Circular Undermining No -Exudate Amt Small -Exudate Type Serosanguineous -Wound Margin Distinct, Outline Attached -Granulation Amt None Present (0 %) -Slough/Fibrin Yes -Necrosis Amt Large (67-100%) -Necrotic Tissue Type Adherent Slough -Texture (Huma-wound Skin Appearance) Assessed, Scarring -Moisture (Huma-wound Skin Appearance) Assessed,Dry/ Scaly -Color (Huma-wound Skin Appearance) Assessed, Erythema -Temperature (Huma-wound Skin No Abnormality Appearance) (Pt Warm) -Tenderness on Palpation (Huma-wound No Skin Appearance) -Ulcer Cleansing Rinsed/ Irrigated with Saline -Foul Odor after Cleansing No -Anesthetic Used 5% Lidocaine Gel #2- L 3RD TOE -Combined with other wound No -Current Size (cm) - Length 0.3 -Current Size (cm) - Width 0.3 -Current Size (cm) - Depth 0.2 -Total Square Cm 0.09 -Date of Last Picture (Recall this 05/31/21 field) -Photo Taken Yes -Epithelialization None Present -Tunneling No -Undermining/Tunneling No -Circular Undermining No -Exudate Amt Medium -Exudate Type Serosanguineous -Wound Margin Distinct, Outline Attached -Granulation Amt Medium (34-66%) -Granulation Quality [place] -Slough/Fibrin Yes -Necrosis Amt Medium (34-66%) -Necrotic Tissue Type Adherent Slough -Texture (Huma-wound Skin Appearance) Assessed, Scarring -Moisture (Huma-wound Skin Appearance) Assessed -Color (Huma-wound Skin Appearance) Assessed, Erythema -Temperature (Huma-wound Skin No Abnormality Appearance) (Pt Warm) -Tenderness on Palpation (Huma-wound No Skin Appearance) -Ulcer Cleansing Rinsed/ Irrigated with Saline -Foul Odor after Cleansing No -Anesthetic Used 5% Lidocaine Gel Lower Limb Edema Present Yes Right Calf (cm) 44.2 Right Ankle (cm) 25.6 Left Calf (cm) 47.1 Left Ankle (cm) 25.4 WC - Nurse 2 - General Ulcer CM Notes Start: 05/31/21 14:10 Freq: Status: Active Protocol: Activity Type Activity Date Activity User E-Sign Co-Sign Detail Recorded Client Recorded Date Recorded By Document 05/31/21 15:05 [facility] [id number] 05/31/21 15:15 [facility] 05/31/21 15:05 Wound Center Nurse 2 #3- R 4TH TOE -Time 15:12 -Correct Patient Yes -Correct Side, Site, Position Yes -Correct Procedure Yes -Procedure Performed Yes -Type of Procedure Debridement -Clinical Debridement Subcutaneous -Tissue Removed Subcutaneous -Post Debridement (cm) - Length 0.3 -Post Debridement (cm) - Width 0.2 -Post Debridement (cm) - Depth 0.1 -Total Square (Post) (cm) 0.06 -Area of Debridement (cm) - Length 0.3 -Area of Debridement (cm) - Width 0.2 -Total Square (Area) (cm) 0.06 -Tunneling No -Undermining/Tunneling No -Circular Undermining No -Wound/Ulcer Outcome Not Healed -Ulcer Cleansing Rinsed/ Irrigated with Saline -Foul Odor after Cleansing Yes, Due to Product Use -Bioengineered Tissue No -Bleeding Controlled with Pressure -Offloading Yes -Type of Offloading Surgical Shoe -Treatment Response Procedure Not Tolerated Well -Debridement - Subq, 1st 20sq cm No #2- L 3RD TOE -Time 15:13 -Correct Patient Yes -Correct Side, Site, Position Yes -Correct Procedure Yes -Procedure Performed Yes -Type of Procedure Debridement -Clinical Debridement Subcutaneous -Tissue Removed Subcutaneous -Post Debridement (cm) - Length 0.3 -Post Debridement (cm) - Width 0.4 -Post Debridement (cm) - Depth 0.2 -Total Square (Post) (cm) 0.12 -Area of Debridement (cm) - Length 0.3 -Area of Debridement (cm) - Width 0.4 -Total Square (Area) (cm) 0.12 -Tunneling No -Circular Undermining No -Wound/Ulcer Outcome Not Healed -Ulcer Cleansing Rinsed/ Irrigated with Saline -Foul Odor after Cleansing No -Bioengineered Tissue No -Bleeding Controlled with Pressure -Offloading Yes -Type of Offloading Surgical Shoe -Treatment Response Procedure Tolerated Well -Debridement - Subq, 1st 20sq cm Yes Pain Scale: 0-10 Numeric Is Patient Pain Free? Yes - Nurse 3 - General Ulcer D/C NN Start: 05/31/21 14:10 Freq: Status: Active Protocol: Activity Type Activity Date Activity User E-Sign Co-Sign Detail Recorded Client Recorded Date Recorded By Document 05/31/21 15:35 [facility] [id number] 05/31/21 15:36 [facility] 05/31/21 15:35 Wound Care Nurse 3 #3- R 4TH TOE -Ulcer Cleansing Rinsed/ Irrigated with Saline -Foul Odor after Cleansing No -Primary Dressing Applied C Hydrogel ($) -Primary Dressing Covered/Secured with Dry Gauze, Secured with Tape #2- L 3RD TOE -Ulcer Cleansing Rinsed/ Irrigated with Saline -Foul Odor after Cleansing No -Primary Dressing Applied Other -Other Dressing HYROGEL -Primary Dressing Covered/Secured with Dry Gauze, Secured with Tape Treatment Response Procedure Tolerated Well Pain Scale: 0-10 Numeric Is Patient Pain Free? Yes - Visit Discharge Discharge Condition Stable Ambulatory Status Ambulatory,Cane Transportation Private Auto Assessment/Plan Assessment/Plan (1) Type 2 diabetes mellitus with diabetic polyneuropathy: CODE(S): E11.42 - Type 2 diabetes mellitus with diabetic polyneuropathy QUALIFIERS: Diabetes mellitus seating and mobility technologist insulin use: with seating and mobility technologist use Qualified Code(s): E11.42 - Type 2 diabetes mellitus with diabetic polyneuropathy; Z79.4 - dealer analyst (current) use of insulin (2) Rheumatoid arthritis: CODE(S): M06.9 - Rheumatoid arthritis, unspecified (3) Hammer toe of left foot: CODE(S): M20.42 - Other hammer toe(s) (acquired), left foot (4) Hammer toe of right foot: CODE(S): M20.41 - Other hammer toe(s) (acquired), right foot (5) Ulcer of right foot with fat layer exposed: CODE(S): L97.512 - Non-pressure chronic ulcer of other part of right foot with fat layer exposed (6) Ulcer of left foot with fat layer exposed: CODE(S): L97.522 - Non-pressure chronic ulcer of other part of left foot with fat layer exposed (7) Other specified peripheral vascular diseases: CODE(S): I73.89 - Other specified peripheral vascular diseases (8) Venous insufficiency (chronic) (peripheral): CODE(S): I87.2 - Venous insufficiency (chronic) (peripheral) (9) Localized edema: CODE(S): R60.0 - Localized edema (10) Ingrowing nail: CODE(S): L60.0 - Ingrowing nail PLAN: I reviewed and discussed her case today. Debridement was performed today as noted in the clinical panel to all of the ulcer sites. The following work up and care recommendations were made: Dressing: To change daily with hydrogel with collagen Wash: Antibacterial soap and water Offload: Bilateral surgical shoes are noted. To bear weight on right heel. I did apply a a foam offloading pad to the strap on the left shoe to avoid pressure on the dorsal third toe ulcer site. Vascular: She does have palpable pulses however I am concerned about the amount of time is taking to heal these ulcers. I recommend screening with a noninvasive vascular study and this orders placed today. Edema: Tubigrip or Basil wraps are recommended. To elevate at rest. To perform hourly muscle contraction while awake. She does have varicosities and edema and I recommend a venous Doppler with reflux evaluation. Infection: To complete course of doxycycline for her previously diagnosed cellulitis. There is no purulence today and she has no other local or systemic signs of illness. Culture results from 10?6 grew staph stimulants and staph L. There is some another culture on file for anaerobic growth which I will talk to the physician who obtained a culture to see if this is from a different site. It appears doxycycline would cover the staph growth. Pain: Controlled Host factors: She has multiple comorbidities that may contribute to delayed healing. I advised her to avoid prednisone. Improvement nutritional status is walker recommended to optimize healing. Diagnostic data: I would like to check her last A1c and update her lab work. I would also like to review her most recent foot x-rays. I will see if this was done at the foot and ankle Center prior to providing other order. She will wait to get the results from her COVID-19 test before any additional orders are recommended that would require her to go to the hospital setting. I answered all the patient's questions. To return to the wound healing center in 1 week or call sooner if the patient has any questions or concerns. The medical decision making level is moderate based on data including at least three of the following: review of prior external notes, review of a test, ordering a test, assessment requiring an independent historian. The medical decision making level is moderate. There is noted moderate risk of morbidity after considering this treatment plan and diagnostic data. Considerations were given to prescription management, decisions regarding surgical options, or social determinants of health.
[2021-06-14 14:22] VITALS: BP 120/70; PULSE 97; RESP 20; TEMP 36.3; BMI 46.6
--- NOTE | 2021-06-14 15:10 | PN.PCM_ITS ---
History of Present Illness Date of Service: 06/14/21 Chief Complaint: Ulcer to right (fourth toe) and left foot (third toe) Ulcer left fourth toe that is new History of Wound: This 65-year-old female with significant past medical history of diabetes, hypothyroidism, rheumatoid arthritis, CKD, CHF, cardiomyopathy, fibromyalgia, GERD, seizure disorder, depression, history of iron deficiency anemia, and hypertension and obesity presents for evaluation of toe ulcers. She relates the onset has been at least since December 2020. Patient currently denies any feelings of nausea, vomiting, fever, chills. She has returned redness to her left foot that is now more intense. Previously completed a full course of doxycycline. She denies odor or streaking. She has been using surgical shoes. Progress of Wound: Healed right Stable left third New left fourth with infection Objective Data Objective Data Vital Signs: Vital Signs Temp Pulse Resp BP 97.4 F L 97 20 H 120/70 06/14/21 14:22 06/14/21 14:22 06/14/21 14:22 06/14/21 14:22 Oxygen Delivery Method Room Air Weight: 131.088 kg Body Mass Index (BMI) 46.6 Lab / Micro Data Result Diagrams: 06/14/21 15:38 06/14/21 15:38 Physical Exam Const alert and oriented x3 General Appearance: cooperative HEENT normocephalic Extremity Extremity Narrative: No calf tenderness Diminished pulses Muscle wasting noted Significant foot deformities consistent with rheumatoid arthritis. She has lateral hallux deviation with very prominent medial eminence of the first metatarsal head consistent with a hallux valgus. She has dorsal contraction of lesser toes with a right second toe amputation noted. The lesser toes are also overriding each other in particular the right third toe is superior to the fourth toe. No bogginess or fluctuance Compartments remain soft to palpate bilateral lower extremities General Extremity: edema and no tenderness to palpation of joints or extremities; Negative for cyanosis Skin Skin Narrative: no purulence, no streaking, no odor, no infection. Superficial granulation tissue noted. No exposed bone or joint. No necrosis. No interdigital maceration. Skin discontinuity right fourth toe adjacent to medial nail border. Skin discontinuity left third dorsal toe adjacent to the proximal interphalangeal joint that is nonreducible and a dorsally contracted position consistent with a hammertoe. New skin discontinuity to distal plantar left fourth toe. There is erythema to the third and fourth toes without bogginess or fluctuance or proximal streaking. There is no necrosis or deep tissue exposed Neuro Neuro Narrative: lack of normal epicritic sensation via light touch is consistent with neuropathy status Psych cooperative and affect normal Debridement Note Debridement Note Wound debrided: Left third and fourth toes Wound Grade/Stage: 1 Type of Debridement: Excisional debridement Anesthesia Used: 4% Lidocaine Solution Depth: in the subcutaneous layer Percentage of wound debrided: 100 Instrument Used: #15 blade Tissue Removed: fibrous, devitalized subcutaneous, biofilm, slough Severity: Fat Layer Exposed Amount of bleeding with debridement: Mild Bleeding Controlled with: Pressure Patient tolerated procedure: Patient tolerated procedure well Post-Debridement Measurements and Additional Note: Post-Debridement Measurements/Treatment - Nurse 1 - General Ulcer Assessment Start: 05/31/21 14:10 Freq: Status: Active Protocol: CLARY.DON Activity Type Activity Date Activity User E-Sign Co-Sign Detail Recorded Client Recorded Date Recorded By Document 05/31/21 14:12 [facility] [id number] 05/31/21 14:41 [facility] Document 06/14/21 14:22 [facility] [id number] 06/14/21 14:33 [facility] 05/31/21 06/14/21 14:12 14:22 - Today's Visit Information Type of service Initial Visit Follow-up Visit (Physician/LIFE AGENT ) Arrival Mode Ambulatory,Cane Ambulatory,Cane Transfer Assistance None None Patient Identification Verified (Name & Yes Yes ) Patient Requires Transmission-Based No No Precautions Finger Stick Blood Sugar(mg/dl) (if 127 248 indicated): Blood Sugar Stated by Stated by Patient Patient Height and Weight Height 5 ft 6 in Weight 131.088 kg Weight in Pounds 289.0 lbs Weight Measurement Method Stated by Patient Body Mass Index (BMI) 46.6 46.6 BMI Classification Obese Obese BSA - Filomena 2.34 Vital Signs Temperature (97.8 F-99.1 F) 97 F L 97.4 F L Temperature Source Temporal Temporal Pulse Rate (60-100) 94 97 Pulse Location Monitor Monitor Respiratory Rate (12-18) 20 H 20 H Respiratory rate source Observation Observation Oxygen Delivery Method Room Air Room Air Blood Pressure (90/60-120/80) 150/73 H 120/70 Blood Pressure Mean (mm Hg) 98 86 Source Monitor Monitor Position Sitting Sitting Blood Pressure Location Right Forearm Right Forearm Have you changed medications since your No last visit? Any new allergies or adverse reactions No Had a fall/change in ADL's that may No increase risk of falls Signs or symptoms of abuse and/or No neglect since last visit Have you been in the hospital since your No last visit? Has dressing in place as prescribed Yes Has compression in place as prescribed N/A Has offloadiing in place as prescribed Yes Experienced any changes in pain level or No management History Since Last Visit- (Skip if this is Patient's initial visit) Left Footwear Surgical Shoe Surgical Shoe with pressure with pressure relief insole relief insole Right Footwear Surgical Shoe Surgical Shoe with pressure with pressure relief insole relief insole Pain Scale: 0-10 Numeric Is Patient Pain Free? Yes Yes Lower Extremity Assessment/ Foot Assessment/ Toe Nail Assessment Right -Posterior Tibial Palpable No -Posterior Tibial Doppler Monophasic -Dorsalis Pedis Palpable Yes -Dorsalis Pedis Doppler Multiphasic -Extremity Color Pale -Hair Growth on Legs Yes -Hair Growth on Toes No -Temperature of Extremity Warm -Capillary Refill Less than 3 Seconds -Other Deformity Yes: both feet visibly deformed. -Prior Foot Ulcer Yes -Charcot Joint No -Prior Amputation Yes -Thick Yes -Discolored Yes -Deformed No -Improper Length & Hygeine No Left -Dorsalis Pedis Palpable Yes -Dorsalis Pedis Doppler Multiphasic -Extremity Color Pale -Hair Growth on Legs Yes -Hair Growth on Toes No -Temperature of Extremity Warm -Capillary Refill Less than 3 Seconds -Other Deformity Yes -Prior Foot Ulcer No -Charcot Joint No -Prior Amputation No -Thick Yes -Discolored Yes -Deformed Yes -Improper Length & Hygeine No Neuropathy Assessment Feet - Top Side and Bottom <Entered> (a) Communication Assessment Preferred language Burmese Beader Tender Required No Able to Read Yes Able to Write Yes Communication Tools None Right Hearing Abillity Normal Left Hearing Abillity Normal Visual Assistive Devices Glasses Teaching Assessment Preferences Verbal,Written, Audio/Visual, Demonstration Barriers to Learning None Readiness To Learn Excellent Willingness to Engage in Self Management High Activies Readiness to Engage in Self Management High Activities Anxiety Level Calm Cooperation Cooperative Perception Coherent Interest in Health Problem Asks Questions Education Importance Acknowledges Need Does Patient Smoke tobacco or other No substances Smoking Status Never smoker Is Patient Diabetic Yes Functional Assessment Recent Decline in Ability to Perform Ambulation 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 Cultural/Voodoo Needs that may affect No Treatment Plan Teaching: Wound Center *Welcome to the Wound Center -Person Taught Patient Welcome to the Wound Care Center Burmese (a) 1 - + 2 - - 3 - + 4 - - 5 - - WC - Nurse 1 - General Ulcer Measurement Start: 05/31/21 14:10 Freq: Status: Active Protocol: Activity Type Activity Date Activity User E-Sign Co-Sign Detail Recorded Client Recorded Date Recorded By Document 05/31/21 14:12 [facility] [id number] 05/31/21 14:41 BM Document 06/14/21 14:22 [facility] [id number] 06/14/21 14:33 BM 05/31/21 06/14/21 14:12 14:22 Wound Center Nurse 1 #4- L 4TH TOE -Combined with other wound No -Current Size (cm) - Length 0.8 -Current Size (cm) - Width 1 -Current Size (cm) - Depth 0.1 -Total Square Cm 0.8 -Date of Last Picture (Recall this 06/14/21 field) -Photo Taken Yes -Epithelialization None Present -Tunneling No -Undermining/Tunneling No -Circular Undermining No -Exudate Amt Medium -Exudate Type Serosanguineous -Wound Margin Distinct, Outline Attached -Granulation Amt Medium (34-66%) -Granulation Quality Red -Slough/Fibrin Yes -Necrosis Amt Medium (34-66%) -Necrotic Tissue Type Adherent Slough -Texture (Huma-wound Skin Appearance) Assessed, Localized Edema ,Scarring -Moisture (Huma-wound Skin Appearance) Assessed -Color (Huma-wound Skin Appearance) Assessed, Erythema -Temperature (Huma-wound Skin No Abnormality Appearance) (Pt Warm) -Tenderness on Palpation (Huma-wound No Skin Appearance) -Ulcer Cleansing Rinsed/ Irrigated with Saline -Foul Odor after Cleansing No -Anesthetic Used 5% Lidocaine Gel #3- R 4TH TOE -Combined with other wound No No -Current Size (cm) - Length 0.1 0.1 -Current Size (cm) - Width 0.1 0.1 -Current Size (cm) - Depth 0.1 0.1 -Total Square Cm 0.01 0.01 -Date of Last Picture (Recall this 05/31/21 field) -Photo Taken Yes -Epithelialization None Present Large 67-100% -Tunneling No No -Undermining/Tunneling No No -Circular Undermining No No -Exudate Amt Small None Present -Exudate Type Serosanguineous -Wound Margin Distinct, Outline Attached -Granulation Amt None Present (0 %) -Slough/Fibrin Yes -Necrosis Amt Large (67-100%) -Necrotic Tissue Type Adherent Slough -Texture (Huma-wound Skin Appearance) Assessed, Assessed,Callus Scarring -Moisture (Huma-wound Skin Appearance) Assessed,Dry/ Assessed,Dry/ Scaly Scaly -Color (Huma-wound Skin Appearance) Assessed, Assessed Erythema -Temperature (Huma-wound Skin No Abnormality No Abnormality Appearance) (Pt Warm) (Pt Warm) -Tenderness on Palpation (Huma-wound No No Skin Appearance) -Ulcer Cleansing Rinsed/ Rinsed/ Irrigated with Irrigated with Saline Saline -Foul Odor after Cleansing No No -Anesthetic Used 5% Lidocaine 5% Lidocaine Gel Gel #2- L 3RD TOE -Combined with other wound No No -Current Size (cm) - Length 0.3 0.5 -Current Size (cm) - Width 0.3 0.4 -Current Size (cm) - Depth 0.2 0.3 -Total Square Cm 0.09 0.20 -Date of Last Picture (Recall this 05/31/21 field) -Photo Taken Yes No -Epithelialization None Present None Present -Tunneling No No -Undermining/Tunneling No No -Circular Undermining No No -Exudate Amt Medium Medium -Exudate Type Serosanguineous Serosanguineous -Wound Margin Distinct, Distinct, Outline Outline Attached Attached -Granulation Amt Medium (34-66%) Medium (34-66%) -Granulation Quality [place] Red -Slough/Fibrin Yes Yes -Necrosis Amt Medium (34-66%) Medium (34-66%) -Necrotic Tissue Type Adherent Slough Adherent Slough -Texture (Huma-wound Skin Appearance) Assessed, Assessed, Scarring Localized Edema ,Scarring -Moisture (Huma-wound Skin Appearance) Assessed Assessed,Dry/ Scaly -Color (Huma-wound Skin Appearance) Assessed, Assessed, Erythema Erythema -Temperature (Huma-wound Skin No Abnormality No Abnormality Appearance) (Pt Warm) (Pt Warm) -Tenderness on Palpation (Huma-wound No No Skin Appearance) -Ulcer Cleansing Rinsed/ Rinsed/ Irrigated with Irrigated with Saline Saline -Foul Odor after Cleansing No No -Anesthetic Used 5% Lidocaine 5% Lidocaine Gel Gel Lower Limb Edema Present Yes Right Calf (cm) 44.2 Right Ankle (cm) 25.6 Left Calf (cm) 47.1 Left Ankle (cm) 25.4 WC - Nurse 2 - General Ulcer CM Notes Start: 05/31/21 14:10 Freq: Status: Active Protocol: Activity Type Activity Date Activity User E-Sign Co-Sign Detail Recorded Client Recorded Date Recorded By Document 05/31/21 15:05 JF [id number] 05/31/21 15:15 JF Document 06/14/21 15:00 JF [id number] 06/14/21 15:06 JF 05/31/21 06/14/21 15:05 15:00 Wound Center Nurse 2 #4- L 4TH TOE -Time 15:00 -Correct Patient Yes -Correct Side, Site, Position Yes -Correct Procedure Yes -Procedure Performed Yes -Type of Procedure Debridement -Clinical Debridement Subcutaneous -Tissue Removed Subcutaneous -Post Debridement (cm) - Length 1.8 -Post Debridement (cm) - Width 1.2 -Post Debridement (cm) - Depth 0.1 -Total Square (Post) (cm) 2.16 -Area of Debridement (cm) - Length 1.8 -Area of Debridement (cm) - Width 1.2 -Total Square (Area) (cm) 2.16 -Tunneling No -Undermining/Tunneling No -Circular Undermining No -Wound/Ulcer Outcome Not Healed -Ulcer Cleansing Rinsed/ Irrigated with Saline -Foul Odor after Cleansing No -Bioengineered Tissue No -Bleeding Controlled with Pressure -Offloading Yes -Type of Offloading Surgical Shoe -Treatment Response Procedure Not Tolerated Well -Debridement - Subq, 1st 20sq cm Yes #3- R 4TH TOE -Time 15:12 -Correct Patient Yes No -Correct Side, Site, Position Yes No -Correct Procedure Yes No -Procedure Performed Yes No -Type of Procedure Debridement -Clinical Debridement Subcutaneous -Tissue Removed Subcutaneous -Post Debridement (cm) - Length 0.3 0 -Post Debridement (cm) - Width 0.2 0 -Post Debridement (cm) - Depth 0.1 0 -Total Square (Post) (cm) 0.06 0 -Area of Debridement (cm) - Length 0.3 0 -Area of Debridement (cm) - Width 0.2 0 -Total Square (Area) (cm) 0.06 0 -Tunneling No -Undermining/Tunneling No -Circular Undermining No -Wound/Ulcer Outcome Not Healed Healed- Epithelialized -Ulcer Cleansing Rinsed/ Irrigated with Saline -Foul Odor after Cleansing Yes, Due to Product Use -Bioengineered Tissue No -Bleeding Controlled with Pressure -Offloading Yes -Type of Offloading Surgical Shoe -Treatment Response Procedure Not Tolerated Well -Debridement - Subq, 1st 20sq cm No #2- L 3RD TOE -Time 15:13 15:01 -Correct Patient Yes Yes -Correct Side, Site, Position Yes Yes -Correct Procedure Yes Yes -Procedure Performed Yes Yes -Type of Procedure Debridement Debridement -Clinical Debridement Subcutaneous Subcutaneous -Tissue Removed Subcutaneous Subcutaneous -Post Debridement (cm) - Length 0.3 0.7 -Post Debridement (cm) - Width 0.4 0.7 -Post Debridement (cm) - Depth 0.2 0.2 -Total Square (Post) (cm) 0.12 0.49 -Area of Debridement (cm) - Length 0.3 0.7 -Area of Debridement (cm) - Width 0.4 0.7 -Total Square (Area) (cm) 0.12 0.49 -Tunneling No No -Undermining/Tunneling No -Circular Undermining No No -Wound/Ulcer Outcome Not Healed Not Healed -Ulcer Cleansing Rinsed/ Rinsed/ Irrigated with Irrigated with Saline Saline -Foul Odor after Cleansing No Yes, Due to Product Use -Bioengineered Tissue No No -Bleeding Controlled with Pressure Pressure -Offloading Yes Yes -Type of Offloading Surgical Shoe Surgical Shoe -Treatment Response Procedure Procedure Tolerated Well Tolerated Well -Debridement - Subq, 1st 20sq cm Yes No Pain Scale: 0-10 Numeric Is Patient Pain Free? Yes WC - Nurse 3 - General Ulcer D/C NN Start: 05/31/21 14:10 Freq: Status: Active Protocol: Activity Type Activity Date Activity User E-Sign Co-Sign Detail Recorded Client Recorded Date Recorded By Document 05/31/21 15:35 [facility] [id number] 05/31/21 15:36 [facility] 05/31/21 15:35 Wound Care Nurse 3 #3- R 4TH TOE -Ulcer Cleansing Rinsed/ Irrigated with Saline -Foul Odor after Cleansing No -Primary Dressing Applied C Hydrogel ($) -Primary Dressing Covered/Secured with Dry Gauze, Secured with Tape #2- L 3RD TOE -Ulcer Cleansing Rinsed/ Irrigated with Saline -Foul Odor after Cleansing No -Primary Dressing Applied Other -Other Dressing HYROGEL -Primary Dressing Covered/Secured with Dry Gauze, Secured with Tape Treatment Response Procedure Tolerated Well Pain Scale: 0-10 Numeric Is Patient Pain Free? Yes WC - Visit Discharge Discharge Condition Stable Ambulatory Status Ambulatory,Cane Transportation Private Auto Assessment/Plan Assessment/Plan (1) Type 2 diabetes mellitus with diabetic polyneuropathy: CODE(S): E11.42 - Type 2 diabetes mellitus with diabetic polyneuropathy QUALIFIERS: Diabetes mellitus intermediate teacher insulin use: with intermediate teacher use Qualified Code(s): E11.42 - Type 2 diabetes mellitus with diabetic polyneuropathy; Z79.4 - terminologist (current) use of insulin (2) Rheumatoid arthritis: CODE(S): M06.9 - Rheumatoid arthritis, unspecified (3) Hammer toe of left foot: CODE(S): M20.42 - Other hammer toe(s) (acquired), left foot (4) Ulcer of left foot with fat layer exposed: CODE(S): L97.522 - Non-pressure chronic ulcer of other part of left foot with fat layer exposed (5) Other specified peripheral vascular diseases: CODE(S): I73.89 - Other specified peripheral vascular diseases (6) Venous insufficiency (chronic) (peripheral): CODE(S): I87.2 - Venous insufficiency (chronic) (peripheral) (7) Localized edema: CODE(S): R60.0 - Localized edema (8) Cellulitis of left lower limb: CODE(S): L03.116 - Cellulitis of left lower limb PLAN: I reviewed and discussed her case today. Debridement was performed today as noted in the clinical panel to all of the ulcer sites. The following work up and care recommendations were made: Dressing: To change daily with hydrogel with collagen Wash: Antibacterial soap and water Offload: Bilateral surgical shoes are noted. To bear weight on right heel. I did apply a a foam offloading pad to the strap on the left shoe to avoid pressure on the dorsal third toe ulcer site. This was adjusted further today to reduce additional pressure to the new ulcer site. Vascular: She does have palpable pulses however I am concerned about the amount of time is taking to heal these ulcers. I recommend screening with a noninvasive vascular study and this orders placed previously and she is advised to get this scheduled. Edema: Tubigrip or Basil wraps are recommended. To elevate at rest. To perform hourly muscle contraction while awake. She does have varicosities and edema and I recommend a venous Doppler with reflux evaluation. Infection: I reviewed her prior cultures and recommend Augmentin. This was sent electronically to her pharmacy of choice. Her multiple allergies are noted. Pain: Controlled Host factors: She has multiple comorbidities that may contribute to delayed healing. I advised her to avoid prednisone. Improvement nutritional status is walker recommended to optimize healing. Diagnostic data: I would like to check her last A1c and update her lab work. An order was provided for lab testing including CBC, CMP, ESR, C-reactive protein. I answered all the patient's questions. To return to the wound healing center in 1 week or call sooner if the patient has any questions or concerns. The medical decision making level is moderate based on data including at least three of the following: review of prior external notes, review of a test, ordering a test, assessment requiring an independent historian. The medical decision making level is moderate. There is noted moderate risk of morbidity after considering this treatment plan and diagnostic data. Considerations were given to prescription management, decisions regarding surgical options, or social determinants of health. The medical decision making level is moderate based on data including at least three of the following: review of prior external notes, review of a test, ordering a test, assessment requiring an independent historian. The problems addressed require a moderate decision making level which includes one or more chronic illnesses (w/ exacerbation, progression, or side effects), two or more stable chronic illnesses, one undiagnosed new problem w/ uncertain prognosis, one acute illness with systemic symptoms, or one acute complicated injury.
--- NOTE | 2021-06-14 15:50 | RAD_ITS ---
STUDY: X-RAY - LEFT FOOT CLINICAL: Female, 65 years old. Chronic ulcer. TECHNIQUE: 3 view(s) of the foot. COMPARISON: 04/27/2016. FINDINGS: Normal talus, calcaneus, and tarsal bones. Normal visualized subtalar, talonavicular, calcaneocuboid, tarsal and tarsometatarsal articulations. Normal metatarsi. The previously visualized fracture of the base of the fifth metatarsal has healed. There is degenerative arthrosis of the metatarsophalangeal joint of the hallux with a hallux valgus deformity. Normal tibial and fibular sesamoid bones. Normal interphalangeal joint of the great toe. Normal phalanges of the great toe. Stable valgus deformities of the second and third metatarsophalangeal joints. Normal fourth and fifth metatarsophalangeal joints. Normal interphalangeal joints and phalanges of the lesser toes. There is soft tissue swelling over the dorsum of the foot which is similar to the previous study. RAD/Foot min 3 Views IMPRESSION: Stable degenerative changes of the foot without evidence of acute fracture, dislocation or destructive osseous pathology. Electronically Signed: William Gupta DO at 16:54 EDT Tel [phone], Service support ,
[2021-06-14 16:19] LABS: Absolute Lymphocyte Count 2.03 X10^3/uL (0.83-4.51); Basophil# 0.08 X10^3/uL; Basophil% 0.6 % (0-1); Eosinophil# 0.29 X10^3/uL; Eosinophils% 2.3 % (0-5); Hematocrit 36.5 % (37-47); Hemoglobin 11.2 g/dL (12.0-15.0); Lymphocyte # 2.03 X10^3/ul (0.83-4.51); Lymphocyte % 16.4 % (19-41); Mean Corp Hgb Conc 30.7 g/dL (32-36); Mean Corpuscular Hgb 26.5 pg (27.0-32.0); Mean Corpuscular Volume 86.5 fL (81-99); Mean Platelet Vol. 9.9 fl (6.2-12.0); Monocyte# 0.88 X10^3/uL; Monocyte% 7.1 % (0-10); NRBC Flagged by Analyzer 0 % (0-5); Neutrophil # 9.02 X10^3/uL (2.7-7.7); Neutrophil % 73.2 % (47-70); Platelet Count 297 K/mm3 (150-450); RBC Distribution Width CV 14.6 % (11.6-14.6); RBC Distribution Width SD 46.1 fl (35.1-43.9); Red Blood Count 4.22 M/mm3 (4.2-5.4); White Blood Count 12.4 K/mm3 (4.4-11.0)
[2021-06-14 16:28] LABS: Erythrocyte Sedimentation Rate 50 mm/hr (0-30)
[2021-06-14 16:37] LABS: Hemoglobin A1c 7.7 % (3.8-5.6)
[2021-06-14 17:04] LABS: ALB/GLOB Ratio 0.7 RATIO (0.9-2.4); AST(SGOT) 13 U/L (15-37); Alanine Aminotransfer ALT/SGPT 16 U/L (13-56); Albumin, Serum 2.8 g/dL (3.2-5.0); Alkaline Phosphatase 183 U/L (45-117); Anion Gap 6 (5-15); BUN 17 mg/dL (7-18); BUN/Creat Ratio 12.1 RATIO (10-20); Calcium,Total 8.8 mg/dL (8.5-10.1); Chloride 105 mmol/L (98-107); Creatinine, Serum 1.41 mg/dL (0.55-1.02); EST Glomerular Filtration Rate 40 mL/min (>60); Est Glom Filt Rate - Afr Amer 48 mL/min (>60); Estimated Creatinine Clearance 36.74 ml/min; Globulin 4.2 g/dL (2.2-4.2); Glucose 66 mg/dL (74-106); Potassium 3.9 mmol/L (3.5-5.1); Sodium Level 139 mmol/L (136-145)
== END 2021-06-18 23:59 ==
LOC: WC 14:30
PROVIDERS: PCP Family Medicine; Visit Provider Podiatrist
DX: E11.621 Type 2 diabetes mellitus with foot ulcer (principal); E11.22 Type 2 diabetes mellitus with diabetic chronic kidney disease; I13.0 Hypertensive heart and chronic kidney disease with heart failure and stage 1 through stage 4 chronic kidney disease, or unspecified chronic kidney disease; M06.9 Rheumatoid arthritis, unspecified; M79.7 Fibromyalgia; I50.9 Heart failure, unspecified; L97.522 Non-pressure chronic ulcer of other part of left foot with fat layer exposed; Z68.41 Body mass index [BMI] 40.0-44.9, adult; E66.9 Obesity, unspecified; K21.9 Gastro-esophageal reflux disease without esophagitis; E03.9 Hypothyroidism, unspecified; I48.0 Paroxysmal atrial fibrillation; G47.33 Obstructive sleep apnea (adult) (pediatric); L97.512 Non-pressure chronic ulcer of other part of right foot with fat layer exposed; E78.5 Hyperlipidemia, unspecified; E11.51 Type 2 diabetes mellitus with diabetic peripheral angiopathy without gangrene; E11.42 Type 2 diabetes mellitus with diabetic polyneuropathy; M10.9 Gout, unspecified; Z20.822 Contact with and (suspected) exposure to COVID-19; Z79.899 Other long term (current) drug therapy; Z79.4 Long term (current) use of insulin; Z79.890 Hormone replacement therapy; Z89.421 Acquired absence of other right toe(s); M20.41 Other hammer toe(s) (acquired), right foot; M20.42 Other hammer toe(s) (acquired), left foot; I87.2 Venous insufficiency (chronic) (peripheral); L60.0 Ingrowing nail; L03.116 Cellulitis of left lower limb
CPT/HCPCS: 11042; 73630; 80053; 83036; 85025; 85652; 86140; 99213; G0463

== ENCOUNTER → 2021-06-22 15:29 | Outpatient (CLI) | payer MEDICARE, MEDICAID, SELFPAY ==
[2021-06-22 18:39] LABS: Thyroid Stim Hormone (TSH) 3.86 uIU/mL (0.358-3.74)
== END ==
PROVIDERS: PCP Family Medicine; Visit Provider Nurse Practitioner Family
DX: E03.9 Hypothyroidism, unspecified (principal)
CPT/HCPCS: 36415; 84439; 84443

== ENCOUNTER → 2021-07-03 12:49 | Outpatient (CLI) | payer MEDICARE, MEDICAID, SELFPAY ==
--- NOTE | 2021-07-03 12:53 | VDLE_ITS ---
Reason For Study: Edema RIGHT LEFT CFV is compressible, spontaneous, phasic, CFV is compressible, spontaneous, phasic, competent and demonstrates normal competent, and demonstrates normal augmentation. augmentation. FV is compressible, spontaneous, phasic, FV is compressible, spontaneous, phasic, competent and demonstrates normal competent and demonstrates normal augmentation. augmentation. POP V is compressible, spontaneous, phasic, POP V is compressible, spontaneous, phasic, competent and demonstrates normal competent and demonstrates normal augmentation. augmentation. T/P Trunk is compressible. T/P Trunk is compressible. PTV is compressible. PTV is compressible. RT PerV is compressible. LT PerV is compressible. SFJ is competent and measures 1.17 x 1.12 cm. SFJ is competent and measures 1.26 x 1.18 cm. GSV proximal thigh measures 0.84 x 0.84 cm. GSV proximal thigh measures 0.74 x 0.76 cm. GSV at knee measures 0.58 x 0.59 cm. GSV at knee measures 0.50 x 0.53 cm. GSV is competent throughout. GSV is competent throughout. SSV proximal calf is competent and measures SSV proximal calf is competent and measures 0.43 x 0.39 cm. 0.35 x 0.34 cm. Procedure This is a venous duplex using B-mode, color flow and spectral Doppler. Exam performed in department. A preliminary report was called and/or faxed to . VL/Venous Duplex US - Con Extrem Interpretation Summary Deep veins of the lower extremities are bilaterally patent and compressible seg mentally. There is no evidence of deep vein thrombosis on either side. Valvular competence appears in tact within the proximal deep venous systems bilaterally. The great saphenous veins appear bila terally patent and compressible segmentally. Sapheno-femoral junctions are bilaterally competent . Valvular competence appears to be intact segmentally within the great saphenous veins bilaterally. Small saphenous veins are patent and competent bilaterally. Ordering Physician: Juli Ascencio Referring Physician: Devan Parks Performed By: Romana Frazier RVT
--- NOTE | 2021-07-03 12:54 | ART_ITS ---
Reason For Study: PVD Procedure A bilateral lower extremity continuous wave Doppler with analog waveform analysis,segmental pressures,and ankle brachial indexes without exercise. Left Segmental Pressures Left brachial= 192mmHg. Left posterior tibial artery = 203mmHg. Left dorsalis pedis artery = 206mmHg. Left digit = 104 mmHg. The left dorsalis pedis waveforms are triphasic. The left posterior tibial artery waveforms are triphasic. Right Segmental Pressures Right brachial= 185mmHg. Right posterior tibial artery = 229mmHg. Right dorsalis pedis artery = 230mmHg. The right dorsalis pedis waveforms are triphasic. The right posterior tibial artery waveforms are triphasic. Indices The right ankle brachial index by the dorsalis pedis is 1.20. The right ankle brachial index by the posterior tibial artery is 1.19. The left ankle brachial index by the dorsalis pedis is 1.07. The left ankle brachial index by the posterior tibial artery is 1.06. The left digital-brachial index is 0.54. VL/Lower Ext Art Exam w/o Exercis Interpretation Summary Triphasic Doppler waveforms are noted at ankle level bilaterally. Pulse-volume recordings appear satisfactory bilaterally. Resting ankle-brachial indices are normal bilaterally . The right digital- brachial index was not determined due to a second toe amputation. The left digi jennifer-brachial index is mildly diminished. Arterial flow appears to be normal at ankle level bilaterally. Arterial flow wa s not assessed at digital level on the right. There is evidence of mild arterial occlusive diseas e at digital level on the left. Ordering Physician: Juli Ascencio Referring Physician: Devan Parks Performed By: Romana Frazier RVT
[2021-07-03 14:01] LABS: Bedside Glucose 66 mg/dL (70-110)
[2021-07-03 14:15] LABS: Bedside Glucose 75 mg/dL (70-110)
== END ==
PROVIDERS: PCP Family Medicine; Referring Provider Podiatrist; Visit Provider Podiatrist
DX: I73.9 Peripheral vascular disease, unspecified (principal); I87.2 Venous insufficiency (chronic) (peripheral); R60.0 Localized edema
CPT/HCPCS: 82962; 93923; 93970

== ENCOUNTER 2021-07-12 14:15 | Outpatient (RCR) | payer MEDICARE, MEDICAID, SELFPAY ==
[2021-06-19 00:32] VITALS: BP 120/70; PULSE 97; RESP 20; TEMP 36.3; BMI 46.6
[2021-06-21 13:48] VITALS: BP 159/81; PULSE 84; RESP 18; TEMP 36.4; BMI 46.6
--- NOTE | 2021-06-21 14:48 | PN.PCM_ITS ---
History of Present Illness Date of Service: 06/21/21 Chief Complaint: Ulcer left third and fourth toes History of Wound: This 65-year-old female with significant past medical history of diabetes, hypothyroidism, rheumatoid arthritis, CKD, CHF, cardiomyopathy, fibromyalgia, GERD, seizure disorder, depression, history of iron deficiency anemia, and hypertension and obesity presents for evaluation of toe ulcers. She relates the onset has been at least since December 2020. Patient currently denies any feelings of nausea, vomiting, fever, chills. She has reduced redness to her left foot. She has been using surgical shoes. Progress of Wound: Reduce redness intensity, ulcer stable Objective Data Objective Data Vital Signs: Vital Signs Temp Pulse Resp BP 97.5 F L 84 18 159/81 H 06/21/21 13:48 06/21/21 13:48 06/21/21 13:48 06/21/21 13:48 Weight: 131.088 kg Body Mass Index (BMI) 46.6 Physical Exam Const alert and oriented x3 General Appearance: cooperative HEENT normocephalic Extremity Extremity Narrative: No calf tenderness Diminished pulses Muscle wasting noted Significant foot deformities consistent with rheumatoid arthritis. She has lateral hallux deviation with very prominent medial eminence of the first metatarsal head consistent with a hallux valgus. She has dorsal contraction of lesser toes with a right second toe amputation noted. The lesser toes are also overriding each other in particular the right third toe is superior to the fourth toe. No bogginess or fluctuance Compartments remain soft to palpate bilateral lower extremities General Extremity: edema and no tenderness to palpation of joints or extremities; Negative for cyanosis Skin Skin Narrative: no purulence, no streaking, no odor, no infection. Superficial granulation tissue noted. No exposed bone or joint. No necrosis. No interdigital maceration. Full epithelialization now to the right fourth toe adjacent to medial nail border. Skin discontinuity left third dorsal toe adjacent to the proximal interphalangeal joint that is nonreducible and a dorsally contracted position consistent with a hammertoe. skin discontinuity to distal plantar left fourth toe. There is reduced intensity of erythema to the third and fourth toes without bogginess or fluctuance or proximal streaking. There is no necrosis or deep tissue exposed Neuro Neuro Narrative: lack of normal epicritic sensation via light touch is consistent with neuropathy status Psych cooperative and affect normal Debridement Note Debridement Note Wound debrided: Left third and fourth toes Wound Grade/Stage: Type of Debridement: Excisional debridement Anesthesia Used: 4% Lidocaine Solution Depth: in the subcutaneous layer Percentage of wound debrided: 100 Instrument Used: #15 blade Tissue Removed: fibrous, devitalized subcutaneous, biofilm, slough Severity: Fat Layer Exposed Amount of bleeding with debridement: Mild Bleeding Controlled with: Pressure Patient tolerated procedure: Patient tolerated procedure well Post-Debridement Measurements and Additional Note: Post-Debridement Measure ments/Treatment WC - Nurse 1 - General Ulcer Assessment Start: 06/21/21 13:48 Freq: Status: Active Protocol: WILLY Activity Type Activity Date Activity User E-Sign Co-Sign Detail Recorded Client Recorded Date Recorded By Document 06/21/21 13:48 RB [id number] 06/21/21 13:53 RB 06/21/21 13:48 WC - Today's Visit Information Type of service Follow-up Visit (Physician/CHANNEL DEVELOPMENT MANAGER ) Arrival Mode Ambulatory,Cane Transfer Assistance None Patient Identification Verified (Name & Yes ) Patient Requires Transmission-Based No Precautions Height and Weight Body Mass Index (BMI) 46.6 BMI Classification Obese Vital Signs Temperature (97.8 F-99.1 F) 97.5 F L Temperature Source Temporal Pulse Rate (60-100) 84 Pulse Location Monitor Respiratory Rate (12-18) 18 Respiratory rate source Observation Blood Pressure (90/60-120/80) 159/81 H Blood Pressure Mean (mm Hg) 107 Source Monitor Position Semi-Fowlers Blood Pressure Location Left Arm History Since Last Visit- (Skip if this is Patient's initial visit) Have you changed medications since your No last visit? Any new allergies or adverse reactions No Had a fall/change in ADL's that may No increase risk of falls Signs or symptoms of abuse and/or No neglect since last visit Have you been in the hospital since your No last visit? Has dressing in place as prescribed Yes Has compression in place as prescribed No Has offloadiing in place as prescribed Yes Experienced any changes in pain level or No management Pain Scale: 0-10 Numeric Is Patient Pain Free? Yes CLARY - Nurse 1 - General Ulcer Measurement Start: 06/21/21 13:48 Freq: Status: Active Protocol: Activity Type Activity Date Activity User E-Sign Co-Sign Detail Recorded Client Recorded Date Recorded By Document 06/21/21 13:48 RB [id number] 06/21/21 13:53 RB 06/21/21 13:48 Wound Center Nurse 1 #4- L 4TH TOE -Combined with other wound No -Current Size (cm) - Length 1.2 -Current Size (cm) - Width 1 -Current Size (cm) - Depth 0.1 -Total Square Cm 1.2 -Tunneling No -Undermining/Tunneling No -Circular Undermining No -Exudate Amt Medium -Exudate Type Serosanguineous -Wound Margin Flat & Intact -Granulation Amt Medium (34-66%) -Granulation Quality [place],Red -Slough/Fibrin Yes -Necrosis Amt Small (1-33%) -Necrotic Tissue Type Adherent Slough -Structure Exposed N/A -Texture (Huma-wound Skin Appearance) Assessed -Moisture (Huma-wound Skin Appearance) Assessed, Maceration -Color (Huma-wound Skin Appearance) Erythema -Temperature (Huma-wound Skin No Abnormality Appearance) (Pt Warm) -Tenderness on Palpation (Huma-wound No Skin Appearance) -Ulcer Cleansing Wound Cleanser -Foul Odor after Cleansing No -Anesthetic Used 4% Lidocaine Solution #2- L 3RD TOE -Combined with other wound No -Current Size (cm) - Length 0.5 -Current Size (cm) - Width 0.6 -Current Size (cm) - Depth 0.1 -Total Square Cm 0.30 -Tunneling No -Undermining/Tunneling No -Circular Undermining No -Exudate Amt Medium -Exudate Type Serosanguineous -Wound Margin Flat & Intact -Granulation Amt Medium (34-66%) -Granulation Quality [place],Red -Slough/Fibrin Yes -Necrosis Amt Medium (34-66%) -Necrotic Tissue Type Adherent Slough -Structure Exposed N/A -Texture (Huma-wound Skin Appearance) Assessed -Moisture (Huma-wound Skin Appearance) Assessed, Maceration -Color (Huma-wound Skin Appearance) Erythema -Temperature (Huma-wound Skin No Abnormality Appearance) (Pt Warm) -Tenderness on Palpation (Huma-wound No Skin Appearance) -Ulcer Cleansing Wound Cleanser -Foul Odor after Cleansing No -Anesthetic Used 4% Lidocaine Solution WC - Nurse 2 - General Ulcer CM Notes Start: 06/21/21 13:48 Freq: Status: Active Protocol: Activity Type Activity Date Activity User E-Sign Co-Sign Detail Recorded Client Recorded Date Recorded By Document 06/21/21 14:30 KAMALA [id number] 06/21/21 14:34 KAMALA 06/21/21 14:30 Wound Center Nurse 2 #4- L 4TH TOE -Time 14:31 -Correct Patient Yes -Correct Side, Site, Position Yes -Correct Procedure Yes -Procedure Performed Yes -Type of Procedure Debridement -Clinical Debridement Subcutaneous -Tissue Removed Subcutaneous -Post Debridement (cm) - Length 1.2 -Post Debridement (cm) - Width 1.1 -Post Debridement (cm) - Depth 0.1 -Total Square (Post) (cm) 1.32 -Area of Debridement (cm) - Length 1.2 -Area of Debridement (cm) - Width 1.1 -Total Square (Area) (cm) 1.32 -Tunneling No -Undermining/Tunneling No -Circular Undermining No -Wound/Ulcer Outcome Not Healed -Ulcer Cleansing Rinsed/ Irrigated with Saline -Foul Odor after Cleansing No -Bioengineered Tissue No -Bleeding Controlled with Pressure -Type of Offloading Surgical Shoe -Treatment Response Procedure Tolerated Well -Debridement - Subq, 1st 20sq cm No #2- L 3RD TOE -Time 14:31 -Correct Patient Yes -Correct Side, Site, Position Yes -Correct Procedure Yes -Procedure Performed Yes -Type of Procedure Debridement -Clinical Debridement Subcutaneous -Tissue Removed Subcutaneous -Post Debridement (cm) - Length 0.6 -Post Debridement (cm) - Width 0.6 -Post Debridement (cm) - Depth 0.1 -Total Square (Post) (cm) 0.36 -Area of Debridement (cm) - Length 0.6 -Area of Debridement (cm) - Width 0.6 -Total Square (Area) (cm) 0.36 -Tunneling No -Undermining/Tunneling No -Circular Undermining No -Wound/Ulcer Outcome Not Healed -Ulcer Cleansing Rinsed/ Irrigated with Saline -Foul Odor after Cleansing No -Bioengineered Tissue No -Bleeding Controlled with Pressure -Offloading Yes -Type of Offloading Surgical Shoe -Treatment Response Procedure Tolerated Well -Debridement - Subq, 1st 20sq cm Yes Pain Scale: 0-10 Numeric Is Patient Pain Free? Yes WC - Nurse 3 - General Ulcer D/C NN Start: 06/21/21 13:48 Freq: Status: Active Protocol: Activity Type Activity Date Activity User E-Sign Co-Sign Detail Recorded Client Recorded Date Recorded By Document 06/21/21 14:44 [facility] Desktop 06/21/21 14:45 [facility] 06/21/21 14:44 Wound Care Nurse 3 #4- L 4TH TOE -Ulcer Cleansing Rinsed/ Irrigated with Saline -Foul Odor after Cleansing No -Primary Dressing Applied Other -Other Dressing hydrogel -Primary Dressing Covered/Secured with Dry Gauze, Secured with Tape #2- L 3RD TOE -Ulcer Cleansing Rinsed/ Irrigated with Saline -Foul Odor after Cleansing No -Primary Dressing Applied Other -Other Dressing hydrogel -Primary Dressing Covered/Secured with Dry Gauze, Secured with Tape Treatment Response Procedure Tolerated Well Pain Scale: 0-10 Numeric Is Patient Pain Free? Yes WC - Visit Discharge Discharge Condition Stable Ambulatory Status Ambulatory,Cane Transportation Private Auto Assessment/Plan Assessment/Plan (1) Type 2 diabetes mellitus with diabetic polyneuropathy: CODE(S): E11.42 - Type 2 diabetes mellitus with diabetic polyneuropathy QUALIFIERS: Diabetes mellitus half-way insulin use: with half-way use Qualified Code(s): E11.42 - Type 2 diabetes mellitus with diabetic polyneuropathy; Z79.4 - group home (current) use of insulin (2) Rheumatoid arthritis: CODE(S): M06.9 - Rheumatoid arthritis, unspecified (3) Hammer toe of left foot: CODE(S): M20.42 - Other hammer toe(s) (acquired), left foot (4) Ulcer of left foot with fat layer exposed: CODE(S): L97.522 - Non-pressure chronic ulcer of other part of left foot with fat layer exposed (5) Other specified peripheral vascular diseases: CODE(S): I73.89 - Other specified peripheral vascular diseases (6) Venous insufficiency (chronic) (peripheral): CODE(S): I87.2 - Venous insufficiency (chronic) (peripheral) (7) Localized edema: CODE(S): R60.0 - Localized edema (8) Cellulitis of left lower limb: CODE(S): L03.116 - Cellulitis of left lower limb PLAN: I reviewed and discussed her case today. Debridement was performed today as noted in the clinical panel to all of the ulcer sites. The following work up and care recommendations were made: Dressing: To change daily with hydrogel with collagen Wash: Antibacterial soap and water Offload: Bilateral surgical shoes are noted. To bear weight on right heel. I did apply a a foam offloading pad to the strap on the left shoe to avoid pressure on the dorsal third toe ulcer site. This appears to be properly aligned up. Vascular: She does have palpable pulses however I am concerned about the amount of time is taking to heal these ulcers. I recommend screening with a noninvasive vascular study and this orders placed previously and she is advised to get this scheduled. Edema: Tubigrip or Basil wraps are recommended. To elevate at rest. To perform hourly muscle contraction while awake. She does have varicosities and edema and I recommend a venous Doppler with reflux evaluation. Infection: I reviewed her prior cultures and recommend Augmentin. To complete course. If lack of erythema is noted, doxycycline will be considered. She will monitor this and I will follow up with a phone call. Pain: Controlled Host factors: She has multiple comorbidities that may contribute to delayed healing. I advised her to avoid prednisone. Improvement nutritional status is walker recommended to optimize healing. Diagnostic data: I would like to check her last A1c and update her lab work. An order was provided for lab testing including CBC, CMP, ESR, C-reactive protein. This was reviewed from 06-14-21 with a white blood cell count of 12.4, ESR 50, C-reactive protein of 32.2, albumin 2.8. Her A1c was 7.7%. It is noted she also has reduced kidney function with a GFR of 40 and a creatinine of 1.41. I answered all the patient's questions. To return to the wound healing center in 1 week or call sooner if the patient has any questions or concerns. The medical decision making level is limited based on data including the review of prior external notes, review of a prior test, or ordering a test. 20 minutes was spent on this encounter. This included face to face and non face to face care including preparing for the visit, reviewing the history, performing the exam, counseling and providing education to the patient, family, or caregi margie, ordering medications/test/ procedures if indicated as documented, communicating with other healthcare providers, documenting information in the medical record, interpreting / sharing this information when indicated as documented, and care coordination.
[2021-07-05 08:45] VITALS: BP 124/78; PULSE 71; TEMP 36.6; BMI 46.6
--- NOTE | 2021-07-05 10:36 | PN.PCM_ITS ---
History of Present Illness Date of Service: 07/05/21 Chief Complaint: Ulcer left third and fourth toes New ulcer right foot History of Wound: This 65-year-old female with significant past medical history of diabetes, hypothyroidism, rheumatoid arthritis, CKD, CHF, cardiomyopathy, fibromyalgia, GERD, seizure disorder, depression, history of iron deficiency anemia, and hypertension and obesity presents for evaluation of toe ulcers. She relates the onset has been at least since December 2020. Patient currently denies any feelings of nausea, vomiting, fever, chills. She has been using surgical shoes. When she walks a lot she reports she has loss of balance and now she uses a walker. She reports a new ulcer to the right foot with an onset of 06-30-21. 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 She is not taking any steroid. She is taking Plaquenil which should not affect healing. She also continues to take Plavix. Progress of Wound: improving left new right Objective Data Objective Data Vital Signs: Vital Signs Temp Pulse Resp BP 97.8 F 71 18 124/78 H 07/05/21 08:45 07/05/21 08:45 06/21/21 13:48 07/05/21 08:45 Weight: 131.088 kg Body Mass Index (BMI) 46.6 Physical Exam Extremity Extremity Narrative: No calf tenderness Diminished pulses Muscle wasting noted Significant foot deformities consistent with rheumatoid arthritis. She has lateral hallux deviation with very prominent medial eminence of the first metatarsal head consistent with a hallux valgus. She has dorsal contraction of lesser toes with a right second toe amputation noted. The lesser toes are also overriding each other in particular the right third toe is superior to the fourth toe. Right foot has a pronounced hallux valgus deformity with prior second toe amputation. The hallux is deviated in a fibular manner and fills the entire space with the second toe was previously located. There is dorsal contraction fibular deviation of the lesser toes on the right foot No bogginess or fluctuance Compartments remain soft to palpate bilateral lower extremities Skin Skin Narrative: no purulence, no streaking, no odor, no infection. Superficial granulation tissue noted. No exposed bone or joint. No necrosis. No interdigital maceration. Full epithelialization now to the right fourth toe adjacent to medial nail border. Skin discontinuity left third dorsal toe adjacent to the proximal interphalangeal joint that is nonreducible and a dorsally contracted position consistent with a hammertoe. skin discontinuity to distal plantar left fourth toe. There is resolution of erythema to the third and fourth toes without bogginess or fluctuance or proximal streaking. There is no necrosis or deep tissue exposed. skin discontinuity to the dorsal lateral hallux and also in the interspace with granular base and no deep tissue exposure or infection or purulence Neuro Neuro Narrative: lack of normal epicritic sensation via light touch is consistent with neuropathy status Debridement Note Debridement Note Wound debrided: Right first interspace/hallux, left third and fourth toes Wound Grade/Stage: 1 Type of Debridement: Excisional debridement Anesthesia Used: 4% Lidocaine Solution Depth: in the subcutaneous layer Percentage of wound debrided: 100 Instrument Used: #15 blade Tissue Removed: fibrous, devitalized subcutaneous, biofilm, slough Severity: Fat Layer Exposed Amount of bleeding with debridement: Mild Bleeding Controlled with: Pressure Patient tolerated procedure: Patient tolerated procedure well Post-Debridement Measurements and Additional Note: Post-Debridement M easurements/Treatment - Nurse 1 - General Ulcer Assessment Start: 06/21/21 13:48 Freq: Status: Active Protocol: CLARY.DON Activity Type Activity Date Activity User E-Sign Co-Sign Detail Recorded Client Recorded Date Recorded By Document 06/21/21 13:48 [id number] 06/21/21 13:53 RB Document 07/05/21 08:45 [id number] 07/05/21 08:51 KR 06/21/21 07/05/21 13:48 08:45 - Today's Visit Information Type of service Follow-up Visit Follow-up Visit (Physician/HOST/HOSTESS HEAD (Physician/HOST/HOSTESS HEAD ) ) Arrival Mode Ambulatory,Cane Ambulatory Transfer Assistance None Patient Identification Verified (Name & Yes Yes ) Patient Requires Transmission-Based No Precautions Height and Weight Body Mass Index (BMI) 46.6 46.6 BMI Classification Obese Obese Vital Signs Temperature (97.8 F-99.1 F) 97.5 F L 97.8 F Temperature Source Temporal Temporal Pulse Rate (60-100) 84 71 Pulse Location Monitor Monitor Respiratory Rate (12-18) 18 Respiratory rate source Observation Blood Pressure (90/60-120/80) 159/81 H 124/78 H Blood Pressure Mean (mm Hg) 107 93 Source Monitor Manual Position Semi-Fowlers Sitting Blood Pressure Location Left Arm Left Arm History Since Last Visit- (Skip if this is Patient's initial visit) Have you changed medications since your No No last visit? Any new allergies or adverse reactions No No Had a fall/change in ADL's that may No No increase risk of falls Signs or symptoms of abuse and/or No neglect since last visit Have you been in the hospital since your No No last visit? Has dressing in place as prescribed Yes Yes Has compression in place as prescribed No N/A Has offloadiing in place as prescribed Yes N/A Experienced any changes in pain level or No management Left Footwear Surgical Shoe with pressure relief insole Right Footwear Surgical Shoe with pressure relief insole Pain Scale: 0-10 Numeric Is Patient Pain Free? Yes Yes WC - Nurse 1 - General Ulcer Measurement Start: 06/21/21 13:48 Freq: Status: Active Protocol: Activity Type Activity Date Activity User E-Sign Co-Sign Detail Recorded Client Recorded Date Recorded By Document 06/21/21 13:48 RB [id number] 06/21/21 13:53 RB Document 07/05/21 08:45 KR [id number] 07/05/21 08:51 KR 06/21/21 07/05/21 13:48 08:45 Wound Center Nurse 1 #5 Right Dorsal Hallux cluster -Current Size (cm) - Length 0.4 -Current Size (cm) - Width 1.3 -Current Size (cm) - Depth 0.2 -Total Square Cm 0.52 -Exudate Amt Small -Exudate Type Serosanguineous -Wound Margin Distinct, Outline Attached -Granulation Amt Medium (34-66%) -Granulation Quality Red -Necrosis Amt Medium (34-66%) -Necrotic Tissue Type Adherent Slough -Texture (Huma-wound Skin Appearance) Assessed, Scarring -Moisture (Huma-wound Skin Appearance) No Abnormality, Assessed -Color (Huma-wound Skin Appearance) No Abnormality, Assessed -Temperature (Huma-wound Skin No Abnormality Appearance) (Pt Warm) -Tenderness on Palpation (Huma-wound No Skin Appearance) -Ulcer Cleansing Rinsed/ Irrigated with Saline -Foul Odor after Cleansing No -Anesthetic Used 5% Lidocaine Gel #4- L 4TH TOE -Combined with other wound No -Current Size (cm) - Length 1.2 0.6 -Current Size (cm) - Width 1 0.5 -Current Size (cm) - Depth 0.1 0.1 -Total Square Cm 1.2 0.30 -Tunneling No -Undermining/Tunneling No -Circular Undermining No -Exudate Amt Medium Small -Exudate Type Serosanguineous -Wound Margin Flat & Intact Distinct, Outline Attached -Granulation Amt Medium (34-66%) Small (1-33%) -Granulation Quality [place],Red Red -Slough/Fibrin Yes -Necrosis Amt Small (1-33%) Small (1-33%) -Necrotic Tissue Type Adherent Slough Adherent Slough -Structure Exposed N/A -Texture (Huma-wound Skin Appearance) Assessed Assessed, Scarring -Moisture (Huma-wound Skin Appearance) Assessed, Assessed, Maceration Maceration -Color (Huma-wound Skin Appearance) Erythema No Abnormality, Assessed -Temperature (Huma-wound Skin No Abnormality No Abnormality Appearance) (Pt Warm) (Pt Warm) -Tenderness on Palpation (Huma-wound No No Skin Appearance) -Ulcer Cleansing Wound Cleanser Rinsed/ Irrigated with Saline -Foul Odor after Cleansing No No -Anesthetic Used 4% Lidocaine 5% Lidocaine Solution Gel #2- L 3RD TOE -Combined with other wound No -Current Size (cm) - Length 0.5 0.4 -Current Size (cm) - Width 0.6 0.4 -Current Size (cm) - Depth 0.1 0.1 -Total Square Cm 0.30 0.16 -Tunneling No -Undermining/Tunneling No -Circular Undermining No -Exudate Amt Medium Small -Exudate Type Serosanguineous Serosanguineous -Wound Margin Flat & Intact Distinct, Outline Attached -Granulation Amt Medium (34-66%) Medium (34-66%) -Granulation Quality [place],Red Red -Slough/Fibrin Yes -Necrosis Amt Medium (34-66%) Small (1-33%) -Necrotic Tissue Type Adherent Slough Adherent Slough -Structure Exposed N/A -Texture (Huma-wound Skin Appearance) Assessed Assessed, Scarring -Moisture (Huma-wound Skin Appearance) Assessed, No Abnormality, Maceration Assessed -Color (Huma-wound Skin Appearance) Erythema No Abnormality, Assessed -Temperature (Huma-wound Skin No Abnormality No Abnormality Appearance) (Pt Warm) (Pt Warm) -Tenderness on Palpation (Huma-wound No No Skin Appearance) -Ulcer Cleansing Wound Cleanser Rinsed/ Irrigated with Saline -Foul Odor after Cleansing No No -Anesthetic Used 4% Lidocaine 5% Lidocaine Solution Gel WC - Nurse 2 - General Ulcer CM Notes Start: 06/21/21 13:48 Freq: Status: Active Protocol: Activity Type Activity Date Activity User E-Sign Co-Sign Detail Recorded Client Recorded Date Recorded By Document 06/21/21 14:30 [id number] 06/21/21 14:34 Document 07/05/21 08:56 [id number] 07/05/21 09:04 06/21/21 07/05/21 14:30 08:56 Wound Center Nurse 2 #5 Right Dorsal Hallux cluster -Time 08:58 -Correct Patient Yes -Correct Side, Site, Position Yes -Correct Procedure Yes -Procedure Performed Yes -Type of Procedure Debridement -Clinical Debridement Subcutaneous -Tissue Removed Subcutaneous -Post Debridement (cm) - Length 0.5 -Post Debridement (cm) - Width 1.0 -Post Debridement (cm) - Depth 0.2 -Total Square (Post) (cm) 0.50 -Area of Debridement (cm) - Length 0.5 -Area of Debridement (cm) - Width 1.0 -Total Square (Area) (cm) 0.50 -Tunneling No -Undermining/Tunneling No -Circular Undermining No -Wound/Ulcer Outcome Not Healed -Ulcer Cleansing Rinsed/ Irrigated with Saline -Bioengineered Tissue No -Bleeding Controlled with Pressure -Offloading Yes -Type of Offloading Surgical Shoe -Treatment Response Procedure Tolerated Well -Debridement - Subq, 1st 20sq cm No #4- L 4TH TOE -Time 14:31 08:59 -Correct Patient Yes Yes -Correct Side, Site, Position Yes Yes -Correct Procedure Yes Yes -Procedure Performed Yes Yes -Type of Procedure Debridement Debridement -Clinical Debridement Subcutaneous Subcutaneous -Tissue Removed Subcutaneous Subcutaneous -Post Debridement (cm) - Length 1.2 0.8 -Post Debridement (cm) - Width 1.1 0.7 -Post Debridement (cm) - Depth 0.1 0.1 -Total Square (Post) (cm) 1.32 0.56 -Area of Debridement (cm) - Length 1.2 0.8 -Area of Debridement (cm) - Width 1.1 0.7 -Total Square (Area) (cm) 1.32 0.56 -Tunneling No No -Undermining/Tunneling No No -Circular Undermining No No -Wound/Ulcer Outcome Not Healed Not Healed -Ulcer Cleansing Rinsed/ Rinsed/ Irrigated with Irrigated with Saline Saline -Foul Odor after Cleansing No No -Bioengineered Tissue No No -Bleeding Controlled with Pressure -Offloading No -Type of Offloading Surgical Shoe -Treatment Response Procedure Tolerated Well -Debridement - Subq, 1st 20sq cm No No #2- L 3RD TOE -Time 14:31 -Correct Patient Yes Yes -Correct Side, Site, Position Yes Yes -Correct Procedure Yes Yes -Procedure Performed Yes Yes -Type of Procedure Debridement Debridement -Clinical Debridement Subcutaneous Subcutaneous -Tissue Removed Subcutaneous Subcutaneous -Post Debridement (cm) - Length 0.6 0.3 -Post Debridement (cm) - Width 0.6 0.4 -Post Debridement (cm) - Depth 0.1 0.2 -Total Square (Post) (cm) 0.36 0.12 -Area of Debridement (cm) - Length 0.6 0.4 -Area of Debridement (cm) - Width 0.6 0.3 -Total Square (Area) (cm) 0.36 0.12 -Tunneling No No -Undermining/Tunneling No No -Circular Undermining No No -Wound/Ulcer Outcome Not Healed Not Healed -Ulcer Cleansing Rinsed/ Rinsed/ Irrigated with Irrigated with Saline Saline -Foul Odor after Cleansing No No -Bioengineered Tissue No No -Bleeding Controlled with Pressure Pressure -Offloading Yes Yes -Type of Offloading Surgical Shoe Surgical Shoe -Treatment Response Procedure Procedure Not Tolerated Well Tolerated Well -Debridement - Subq, 1st 20sq cm Yes Yes Pain Scale: 0-10 Numeric Is Patient Pain Free? Yes Yes WC - Nurse 3 - General Ulcer D/C NN Start: 06/21/21 13:48 Freq: Status: Active Protocol: Activity Type Activity Date Activity User E-Sign Co-Sign Detail Recorded Client Recorded Date Recorded By Document 06/21/21 14:44 [facility] Desktop 06/21/21 14:45 [facility] Document 07/05/21 09:20 KR [id number] 11/17/21 09:20 KR 06/21/21 07/05/21 14:44 09:20 Wound Care Nurse 3 #5 Right Dorsal Hallux cluster -Ulcer Cleansing Rinsed/ Irrigated with Saline -Primary Dressing Applied C Hydrogel ($) -Primary Dressing Covered/Secured with Dry Gauze,Dry Gauze & Roll Gauze,Secured with Tape #4- L 4TH TOE -Ulcer Cleansing Rinsed/ Irrigated with Saline -Foul Odor after Cleansing No -Primary Dressing Applied Other -Other Dressing hydrogel -Primary Dressing Covered/Secured with Dry Gauze, Dry Gauze, Secured with Secured with Tape Tape #2- L 3RD TOE -Ulcer Cleansing Rinsed/ Rinsed/ Irrigated with Irrigated with Saline Saline -Foul Odor after Cleansing No -Primary Dressing Applied Other -Other Dressing hydrogel -Primary Dressing Covered/Secured with Dry Gauze, Secured with Tape Treatment Response Procedure Tolerated Well Pain Scale: 0-10 Numeric Is Patient Pain Free? Yes Yes WC - Visit Discharge Discharge Condition Stable Stable Ambulatory Status Ambulatory,Cane Walker Transportation Private Auto Private Auto Medication Reconcilliation completed & No provided to patient/care provider Clinical Summary of Care Provided No Assessment/Plan Assessment/Plan (1) Type 2 diabetes mellitus with diabetic polyneuropathy: CODE(S): E11.42 - Type 2 diabetes mellitus with diabetic polyneuropathy QUALIFIERS: Diabetes mellitus oil heaterman insulin use: with oil heaterman use Qualified Code(s): E11.42 - Type 2 diabetes mellitus with diabetic polyneuropathy; Z79.4 - intermediate manager (current) use of insulin (2) Rheumatoid arthritis: CODE(S): M06.9 - Rheumatoid arthritis, unspecified (3) Hammer toe of left foot: CODE(S): M20.42 - Other hammer toe(s) (acquired), left foot (4) Ulcer of left foot with fat layer exposed: CODE(S): L97.522 - Non-pressure chronic ulcer of other part of left foot with fat layer exposed (5) Other specified peripheral vascular diseases: CODE(S): I73.89 - Other specified peripheral vascular diseases (6) Venous insufficiency (chronic) (peripheral): CODE(S): I87.2 - Venous insufficiency (chronic) (peripheral) (7) Localized edema: CODE(S): R60.0 - Localized edema (8) Cellulitis of left lower limb: CODE(S): L03.116 - Cellulitis of left lower limb (9) Chronic ulcer of great toe of right foot with fat layer exposed: CODE(S): L97.512 - Non-pressure chronic ulcer of other part of right foot with fat layer exposed PLAN: I reviewed and discussed her case today. Debridement was performed today as noted in the clinical panel to all of the ulcer sites. Her new ulcer site is noted and was addressed today. The following work up and care recommendations were made: Dressing: To change daily with hydrogel with collagen Wash: Antibacterial soap and water Offload: Bilateral surgical shoes are noted. To bear weight on right heel. Her left foot surgical shoe was adjusted. It appears her Plastizote liner slipped distal and that shoes and this was really secured. I also recommend additional spacer into the first interspace on the right foot where the ulcer is. This can be achieved by the use of a gauze bolster. Vascular: She does have palpable pulses however I am concerned about the amount of time is taking to heal these ulcers. I reviewed and discussed her noninvasive vascular studies. She appears to have good triphasic waveforms and normal ankle-brachial indices. The toe brachial index was slightly reduced on the left foot with a value of 0.54. This is consistent with mild small vessel occlusive disease. We will continue to monitor her healing and a vascular referral be considered if she has ongoing delays however overall her studies look decent. Edema: Tubigrip or Basil wraps are recommended. To elevate at rest. To perform hourly muscle contraction while awake. She does have varicosities and edema and I recommend a venous Doppler with reflux evaluation. Infection: I reviewed her prior cultures and recommend Augmentin. Her infection has resolved and she has completed this course. She will monitor this and I will follow up with a phone call. Pain: Controlled Host factors: She has multiple comorbidities that may contribute to delayed healing. I advised her to avoid prednisone; she is not using this. To continue follow-up with lock tender chief operator and primary care physician in regards to diabetes management. Improvement nutritional status is walker recommended to optimize healing. To continue Plavix. Diagnostic data: I would like to check her last A1c and update her lab work. An order was provided for lab testing including CBC, CMP, ESR, C-reactive protein. This was reviewed from 06-14-21 with a white blood cell count of 12.4, ESR 50, C-reactive protein of 32.2, albumin 2.8. Her A1c was 7.7%. It is noted she also has reduced kidney function with a GFR of 40 and a creatinine of 1.41. I answered all the patient's questions. To return to the wound healing center in 1 week or call sooner if the patient has any questions or concerns. The medical decision making level is limited based on data including the review of prior external notes, review of a prior test, or ordering a test. The medical decision making level is low. There is noted low risk of morbidity after considering this treatment plan and diagnostic data.
[2021-07-12 14:30] VITALS: BP 148/60; PULSE 85; RESP 18; TEMP 36; BMI 46.6
--- NOTE | 2021-07-12 16:38 | PCM.WC.PN ---
History of Present Illness Date of Service: 07/12/21 Chief Complaint: Ulcer left third and fourth toes ulcer right foot History of Wound: This 65-year-old female with significant past medical history of diabetes, hypothyroidism, rheumatoid arthritis, CKD, CHF, cardiomyopathy, fibromyalgia, GERD, seizure disorder, depression, history of iron deficiency anemia, and hypertension and obesity presents for evaluation of toe ulcers. She relates the onset has been at least since December 2020. Patient currently denies any feelings of nausea, vomiting, fever, chills. She has been using surgical shoes and thinks it may be rubbing still on her left third toe. When she walks a lot she reports she has loss of balance and now she uses a walker. She does have rheumatoid arthritis and follows with a application specialist. She is not taking any steroid. She is taking Plaquenil which should not affect healing. She also continues to take Plavix. Her nails are also long thick dystrophic and are causing lot of pressure on adjacent toes which have significant deformity. She has rupturing these which she is not feel safe performing on her own. Progress of Wound: improving left Stable right Objective Data Objective Data Vital Signs: Vital Signs Temp Pulse Resp BP 96.8 F L 85 18 148/60 H 07/12/21 14:30 07/12/21 14:30 07/12/21 14:30 07/12/21 14:30 Weight: 131.088 kg Body Mass Index (BMI) 46.6 Physical Exam Extremity Extremity Narrative: No calf tenderness Diminished pulses Muscle wasting noted Significant foot deformities consistent with rheumatoid arthritis. She has lateral hallux deviation with very prominent medial eminence of the first metatarsal head consistent with a hallux valgus. She has dorsal contraction of lesser toes with a right second toe amputation noted. The lesser toes are also overriding each other in particular the right third toe is superior to the fourth toe. Right foot has a pronounced hallux valgus deformity with prior second toe amputation. The hallux is deviated in a fibular manner and fills the entire space with the second toe was previously located. There is dorsal contraction fibular deviation of the lesser toes on the right foot No bogginess or fluctuance Compartments remain soft to palpate bilateral lower extremities Skin Skin Narrative: no purulence, no streaking, no odor, no infection. Superficial granulation tissue noted. No exposed bone or joint. No necrosis. No interdigital maceration. Full epithelialization now to the right fourth toe adjacent to medial nail border. Skin discontinuity left third dorsal toe adjacent to the proximal interphalangeal joint that is nonreducible and a dorsally contracted position consistent with a hammertoe and now with positive probe to bone which is firm. skin discontinuity to distal plantar left fourth toe. There is resolution of erythema to the third and fourth toes without bogginess or fluctuance or proximal streaking. There is no necrosis or deep tissue exposed. skin discontinuity to the dorsal lateral hallux and also in the interspace with granular base and no deep tissue exposure or infection or purulence. Toenails are long thick dystrophic and with subungual debris and are sharp to touch right 1, 3, 4, 5 and left 1, 2, 3, 4, 5 Debridement Note Debridement Note Wound debrided: Right first interspace, left third toe, left fourth toe Wound Grade/Stage: Type of Debridement: Excisional debridement Anesthesia Used: 4% Lidocaine Solution Depth: in the subcutaneous layer Percentage of wound debrided: 100 Instrument Used: #15 blade Tissue Removed: fibrous, devitalized subcutaneous, biofilm, slough Severity: Fat Layer Exposed Amount of bleeding with debridement: Mild Bleeding Controlled with: Pressure Patient tolerated procedure: Patient tolerated procedure well Post-Debridement Measurements and Additional Note: Post-Debridement Measurements/Treatment - Nurse 1 - General Ulcer Assessment Start: 06/21/21 13:48 Freq: Status: Active Protocol: CLARY.LOWEXT Activity Type Activity Date Activity User E-Sign Co-Sign Detail Recorded Client Recorded Date Recorded By Document 06/21/21 13:48 RB [id number] 06/21/21 13:53 RB Document 07/05/21 08:45 KR [id number] 07/05/21 08:51 KR Document 07/12/21 14:30 RB [id number] 07/12/21 14:33 RB 06/21/21 07/05/21 07/12/21 13:48 08:45 14:30 - Today's Visit Information Type of service Follow-up Visit Follow-up Visit Follow-up Visit (Physician/ENVELOPE SEALING MACHINE OPERATOR (Physician/ENVELOPE SEALING MACHINE OPERATOR (Physician/ENVELOPE SEALING MACHINE OPERATOR ) ) ) Arrival Mode Ambulatory,Cane Ambulatory Ambulatory,Cane Transfer Assistance None None Patient Identification Verified (Name & Yes Yes Yes ) Patient Requires Transmission-Based No No Precautions Height and Weight Body Mass Index (BMI) 46.6 46.6 46.6 BMI Classification Obese Obese Obese Vital Signs Temperature (97.8 F-99.1 F) 97.5 F L 97.8 F 96.8 F L Temperature Source Temporal Temporal Temporal Pulse Rate (60-100) 84 71 85 Pulse Location Monitor Monitor Monitor Respiratory Rate (12-18) 18 18 Respiratory rate source Observation Observation Blood Pressure (90/60-120/80) 159/81 H 124/78 H 148/60 H Blood Pressure Mean (mm Hg) 107 93 89 Source Monitor Manual Monitor Position Semi-Fowlers Sitting Supine Blood Pressure Location Left Arm Left Arm Left Arm History Since Last Visit- (Skip if this is Patient's initial visit) Have you changed medications since your No No No last visit? Any new allergies or adverse reactions No No No Had a fall/change in ADL's that may No No No increase risk of falls Signs or symptoms of abuse and/or No No neglect since last visit Have you been in the hospital since your No No No last visit? Has dressing in place as prescribed Yes Yes Yes Has compression in place as prescribed No N/A No Has offloadiing in place as prescribed Yes N/A Yes Experienced any changes in pain level or No No management Left Footwear Surgical Shoe with pressure relief insole Right Footwear Surgical Shoe with pressure relief insole Pain Scale: 0-10 Numeric Is Patient Pain Free? Yes Yes Yes WC - Nurse 1 - General Ulcer Measurement Start: 06/21/21 13:48 Freq: Status: Active Protocol: Activity Type Activity Date Activity User E-Sign Co-Sign Detail Recorded Client Recorded Date Recorded By Document 06/21/21 13:48 RB [id number] 06/21/21 13:53 RB Document 07/05/21 08:45 KR [id number] 07/05/21 08:51 KR Document 07/12/21 14:30 RB [id number] 07/12/21 14:33 RB 06/21/21 07/05/21 07/12/21 13:48 08:45 14:30 Wound Center Nurse 1 #5 Right Dorsal Hallux cluster -Combined with other wound No -Current Size (cm) - Length 0.4 2.1 -Current Size (cm) - Width 1.3 1 -Current Size (cm) - Depth 0.2 0.3 -Total Square Cm 0.52 2.1 -Tunneling No -Undermining/Tunneling No -Circular Undermining No -Exudate Amt Small Medium -Exudate Type Serosanguineous Serosanguineous -Wound Margin Distinct, Flat & Intact Outline Attached -Granulation Amt Medium (34-66%) Medium (34-66%) -Granulation Quality [place] -Slough/Fibrin Yes -Necrosis Amt Medium (34-66%) Small (1-33%) -Necrotic Tissue Type Adherent Slough Adherent Slough -Structure Exposed N/A -Texture (Huma-wound Skin Appearance) Assessed, Assessed Scarring -Moisture (Huma-wound Skin Appearance) No Abnormality, Assessed, Assessed Maceration -Color (Huma-wound Skin Appearance) No Abnormality, Assessed Assessed -Temperature (Huma-wound Skin No Abnormality No Abnormality Appearance) (Pt Warm) (Pt Warm) -Tenderness on Palpation (Huma-wound No No Skin Appearance) -Ulcer Cleansing Rinsed/ Wound Cleanser Irrigated with Saline -Foul Odor after Cleansing No No -Anesthetic Used 5% Lidocaine 4% Lidocaine Gel Solution #4- L 4TH TOE -Combined with other wound No No -Current Size (cm) - Length 1.2 0.6 0.1 -Current Size (cm) - Width 1 0.5 0.1 -Current Size (cm) - Depth 0.1 0.1 0.1 -Total Square Cm 1.2 0.30 0.01 -Tunneling No No -Undermining/Tunneling No No -Circular Undermining No No -Exudate Amt Medium Small Small -Exudate Type Serosanguineous Serosanguineous -Wound Margin Flat & Intact Distinct, Flat & Intact Outline Attached -Granulation Amt Medium (34-66%) Small (1-33%) Medium (34-66%) -Granulation Quality [place],Red [place] -Slough/Fibrin Yes Yes -Necrosis Amt Small (1-33%) Small (1-33%) Small (1-33%) -Necrotic Tissue Type Adherent Slough Adherent Slough Adherent Slough -Structure Exposed N/A N/A -Texture (Huma-wound Skin Appearance) Assessed Assessed, Assessed Scarring -Moisture (Huma-wound Skin Appearance) Assessed, Assessed, Assessed Maceration Maceration -Color (Huma-wound Skin Appearance) Erythema No Abnormality, Assessed Assessed -Temperature (Huma-wound Skin No Abnormality No Abnormality No Abnormality Appearance) (Pt Warm) (Pt Warm) (Pt Warm) -Tenderness on Palpation (Huma-wound No No No Skin Appearance) -Ulcer Cleansing Wound Cleanser Rinsed/ Wound Cleanser Irrigated with Saline -Foul Odor after Cleansing No No No -Anesthetic Used 4% Lidocaine 5% Lidocaine 4% Lidocaine Solution Gel Solution #2- L 3RD TOE -Combined with other wound No No -Current Size (cm) - Length 0.5 0.4 0.3 -Current Size (cm) - Width 0.6 0.4 0.5 -Current Size (cm) - Depth 0.1 0.1 0.1 -Total Square Cm 0.30 0.16 0.15 -Tunneling No No -Undermining/Tunneling No No -Circular Undermining No No -Exudate Amt Medium Small Medium -Exudate Type Serosanguineous Serosanguineous Serosanguineous -Wound Margin Flat & Intact Distinct, Flat & Intact Outline Attached -Granulation Amt Medium (34-66%) Medium (34-66%) Medium (34-66%) -Granulation Quality [place],Red [place] -Slough/Fibrin Yes Yes -Necrosis Amt Medium (34-66%) Small (1-33%) Small (1-33%) -Necrotic Tissue Type Adherent Slough Adherent Slough Adherent Slough -Structure Exposed N/A N/A -Texture (Huma-wound Skin Appearance) Assessed Assessed, Assessed Scarring -Moisture (Huma-wound Skin Appearance) Assessed, No Abnormality, Assessed Maceration Assessed -Color (Huma-wound Skin Appearance) Erythema No Abnormality, Assessed Assessed -Temperature (Huma-wound Skin No Abnormality No Abnormality No Abnormality Appearance) (Pt Warm) (Pt Warm) (Pt Warm) -Tenderness on Palpation (Huma-wound No No No Skin Appearance) -Ulcer Cleansing Wound Cleanser Rinsed/ Wound Cleanser Irrigated with Saline -Foul Odor after Cleansing No No No -Anesthetic Used 4% Lidocaine 5% Lidocaine 4% Lidocaine Solution Gel Solution WC - Nurse 2 - General Ulcer CM Notes Start: 06/21/21 13:48 Freq: Status: Active Protocol: Activity Type Activity Date Activity User E-Sign Co-Sign Detail Recorded Client Recorded Date Recorded By Document 06/21/21 14:30 [id number] 06/21/21 14:34 Document 07/05/21 08:56 [id number] 07/05/21 09:04 Document 07/12/21 14:47 [id number] 07/12/21 14:51 06/21/21 07/05/21 07/12/21 14:30 08:56 14:47 Wound Center Nurse 2 #5 Right Dorsal Hallux cluster -Time 08:58 14:49 -Correct Patient Yes Yes -Correct Side, Site, Position Yes Yes -Correct Procedure Yes Yes -Procedure Performed Yes Yes -Type of Procedure Debridement Debridement -Clinical Debridement Subcutaneous Subcutaneous -Tissue Removed Subcutaneous Subcutaneous -Post Debridement (cm) - Length 0.5 2.1 -Post Debridement (cm) - Width 1.0 1.1 -Post Debridement (cm) - Depth 0.2 0.3 -Total Square (Post) (cm) 0.50 2.31 -Area of Debridement (cm) - Length 0.5 2.1 -Area of Debridement (cm) - Width 1.0 1.1 -Total Square (Area) (cm) 0.50 2.31 -Tunneling No No -Undermining/Tunneling No No -Circular Undermining No No -Wound/Ulcer Outcome Not Healed Not Healed -Ulcer Cleansing Rinsed/ Rinsed/ Irrigated with Irrigated with Saline Saline -Foul Odor after Cleansing No -Bioengineered Tissue No No -Bleeding Controlled with Pressure Pressure -Offloading Yes Yes -Type of Offloading Surgical Shoe Surgical Shoe -Treatment Response Procedure Procedure Tolerated Well Tolerated Well -Debridement - Subq, 1st 20sq cm No Yes #4- L 4TH TOE -Time 14:31 08:59 14:47 -Correct Patient Yes Yes Yes -Correct Side, Site, Position Yes Yes Yes -Correct Procedure Yes Yes Yes -Procedure Performed Yes Yes Yes -Type of Procedure Debridement Debridement Debridement -Clinical Debridement Subcutaneous Subcutaneous Subcutaneous -Tissue Removed Subcutaneous Subcutaneous Subcutaneous -Post Debridement (cm) - Length 1.2 0.8 0.3 -Post Debridement (cm) - Width 1.1 0.7 0.2 -Post Debridement (cm) - Depth 0.1 0.1 0.1 -Total Square (Post) (cm) 1.32 0.56 0.06 -Area of Debridement (cm) - Length 1.2 0.8 0.3 -Area of Debridement (cm) - Width 1.1 0.7 0.2 -Total Square (Area) (cm) 1.32 0.56 0.06 -Tunneling No No No -Undermining/Tunneling No No No -Circular Undermining No No No -Wound/Ulcer Outcome Not Healed Not Healed Not Healed -Ulcer Cleansing Rinsed/ Rinsed/ Rinsed/ Irrigated with Irrigated with Irrigated with Saline Saline Saline -Foul Odor after Cleansing No No No -Bioengineered Tissue No No No -Bleeding Controlled with Pressure Pressure -Offloading No Yes -Type of Offloading Surgical Shoe Surgical Shoe -Treatment Response Procedure Procedure Tolerated Well Tolerated Well -Debridement - Subq, 1st 20sq cm No No No #2- L 3RD TOE -Time 14:31 14:48 -Correct Patient Yes Yes Yes -Correct Side, Site, Position Yes Yes Yes -Correct Procedure Yes Yes Yes -Procedure Performed Yes Yes Yes -Type of Procedure Debridement Debridement Debridement -Clinical Debridement Subcutaneous Subcutaneous Subcutaneous -Tissue Removed Subcutaneous Subcutaneous Subcutaneous -Post Debridement (cm) - Length 0.6 0.3 0.3 -Post Debridement (cm) - Width 0.6 0.4 0.5 -Post Debridement (cm) - Depth 0.1 0.2 0.3 -Total Square (Post) (cm) 0.36 0.12 0.15 -Area of Debridement (cm) - Length 0.6 0.4 0.3 -Area of Debridement (cm) - Width 0.6 0.3 0.5 -Total Square (Area) (cm) 0.36 0.12 0.15 -Tunneling No No No -Undermining/Tunneling No No No -Circular Undermining No No No -Wound/Ulcer Outcome Not Healed Not Healed Not Healed -Ulcer Cleansing Rinsed/ Rinsed/ Rinsed/ Irrigated with Irrigated with Irrigated with Saline Saline Saline -Foul Odor after Cleansing No No No -Bioengineered Tissue No No No -Bleeding Controlled with Pressure Pressure Pressure -Offloading Yes Yes Yes -Type of Offloading Surgical Shoe Surgical Shoe Surgical Shoe -Treatment Response Procedure Procedure Not Procedure Tolerated Well Tolerated Well Tolerated Well -Debridement - Subq, 1st 20sq cm Yes Yes No Pain Scale: 0-10 Numeric Is Patient Pain Free? Yes Yes Yes - Nurse 3 - General Ulcer D/C NN Start: 06/21/21 13:48 Freq: Status: Active Protocol: Activity Type Activity Date Activity User E-Sign Co-Sign Detail Recorded Client Recorded Date Recorded By Document 06/21/21 14:44 [email or web address] Desktop 06/21/21 14:45 BMF Document 07/05/21 09:20 KR [id number] 07/05/21 09:20 KR Document 07/12/21 15:03 ML [id number] 07/12/21 15:04 ML 06/21/21 07/05/21 07/12/21 14:44 09:20 15:03 Wound Care Nurse 3 #5 Right Dorsal Hallux cluster -Ulcer Cleansing Rinsed/ Rinsed/ Irrigated with Irrigated with Saline Saline -Foul Odor after Cleansing No -Primary Dressing Applied C Hydrogel ($) Aquacel AG 4x4 -Primary Dressing Covered/Secured with Dry Gauze,Dry Dry Gauze, Gauze & Roll Secured with Gauze,Secured Tape with Tape -Aquacel AG 4x4 1 #4- L 4TH TOE -Ulcer Cleansing Rinsed/ Rinsed/ Irrigated with Irrigated with Saline Saline -Foul Odor after Cleansing No -Primary Dressing Applied Other Aquacel AG 4x4 -Other Dressing hydrogel -Primary Dressing Covered/Secured with Dry Gauze, Dry Gauze, Dry Gauze, Secured with Secured with Secured with Tape Tape Tape -Aquacel AG 4x4 0 #2- L 3RD TOE -Ulcer Cleansing Rinsed/ Rinsed/ Rinsed/ Irrigated with Irrigated with Irrigated with Saline Saline Saline -Foul Odor after Cleansing No No -Primary Dressing Applied Other Aquacel AG 4x4 -Other Dressing hydrogel -Primary Dressing Covered/Secured with Dry Gauze, Dry Gauze, Secured with Secured with Tape Tape -Aquacel AG 4x4 0 Treatment Response Procedure Tolerated Well Pain Scale: 0-10 Numeric Is Patient Pain Free? 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: with lacquer dipping machine operator use Qualified Code(s): E11.42 - Type 2 diabetes mellitus with diabetic polyneuropathy; Z79.4 - hull grinder (current) use of insulin (2) Rheumatoid arthritis: CODE(S): M06.9 - Rheumatoid arthritis, unspecified (3) Hammer toe of left foot: CODE(S): M20.42 - Other hammer toe(s) (acquired), left foot (4) Ulcer of left foot with fat layer exposed: CODE(S): L97.522 - Non-pressure chronic ulcer of other part of left foot with fat layer exposed (5) Other specified peripheral vascular diseases: CODE(S): I73.89 - Other specified peripheral vascular diseases (6) Venous insufficiency (chronic) (peripheral): CODE(S): I87.2 - Venous insufficiency (chronic) (peripheral) (7) Localized edema: CODE(S): R60.0 - Localized edema (8) Cellulitis of left lower limb: CODE(S): L03.116 - Cellulitis of left lower limb (9) Chronic ulcer of great toe of right foot with fat layer exposed: CODE(S): L97.512 - Non-pressure chronic ulcer of other part of right foot with fat layer exposed (10) Tinea unguium: CODE(S): B35.1 - Tinea unguium PLAN: I reviewed and discussed her case today. Debridement was performed today as noted in the clinical panel to all of the ulcer sites. The following work up and care recommendations were made: Dressing: To change daily with Aquacel Ag Wash: Antibacterial soap and water Nail debridement: I reviewed the patient's case. The nails were debrided with a nail nipper after verbal consent was obtained without incident. The nails were debrided in length and thickness to reduce pressure, potential fungal load, and to prevent wound formation. The patient tolerated this well. The patient elects proceed with palliative care only at this time with the nails. Offload: Bilateral surgical shoes are noted. To bear weight on right heel. Her left foot surgical shoe was adjusted again today in which the distal end of the straps were completely excised to avoid any contact with her toes. It appears her Plastizote liner slipped distal and that shoes and this was really secured. I also recommend additional spacer into the first interspace on the right foot where the ulcer is. This can be achieved by the use of a gauze bolster. Vascular: She does have palpable pulses however I am concerned about the amount of time is taking to heal these ulcers. I reviewed and discussed her noninvasive vascular studies. She appears to have good triphasic waveforms and normal ankle-brachial indices. The toe brachial index was slightly reduced on the left foot with a value of 0.54. This is consistent with mild small vessel occlusive disease. We will continue to monitor her healing and a vascular referral be considered if she has ongoing delays however overall her studies look decent. Edema: Tubigrip or Basil wraps are recommended. To elevate at rest. To perform hourly muscle contraction while awake. She does have varicosities and edema and I recommend a venous Doppler with reflux evaluation. Infection: I reviewed her prior cultures and recommend Augmentin. Her infection has resolved and she has completed this course. She will monitor this and I will follow up with a phone call. Pain: Controlled Host factors: She has multiple comorbidities that may contribute to delayed healing. I advised her to avoid prednisone; she is not using this. To continue follow-up with application specialist and primary care physician in regards to diabetes management. Improvement nutritional status is walker recommended to optimize healing. To continue Plavix. Diagnostic data: I would like to check her last A1c and update her lab work. An order was provided for lab testing including CBC, CMP, ESR, C-reactive protein. This was reviewed from 06-14-21 with a white blood cell count of 12.4, ESR 50, C-reactive protein of 32.2, albumin 2.8. Her A1c was 7.7%. It is noted she also has reduced kidney function with a GFR of 40 and a creatinine of 1.41. I answered all the patient's questions. To return to the wound healing center in 1 week or call sooner if the patient has any questions or concerns.
== END 2021-07-18 23:59 ==
LOC: WC 14:15
PROVIDERS: PCP Family Medicine; Visit Provider Podiatrist
DX: E11.621 Type 2 diabetes mellitus with foot ulcer (principal); L97.522 Non-pressure chronic ulcer of other part of left foot with fat layer exposed; L97.512 Non-pressure chronic ulcer of other part of right foot with fat layer exposed; L03.116 Cellulitis of left lower limb; M20.42 Other hammer toe(s) (acquired), left foot; B35.1 Tinea unguium; R60.0 Localized edema; E11.51 Type 2 diabetes mellitus with diabetic peripheral angiopathy without gangrene; E11.42 Type 2 diabetes mellitus with diabetic polyneuropathy; I13.0 Hypertensive heart and chronic kidney disease with heart failure and stage 1 through stage 4 chronic kidney disease, or unspecified chronic kidney disease; E11.22 Type 2 diabetes mellitus with diabetic chronic kidney disease; N18.9 Chronic kidney disease, unspecified; I50.9 Heart failure, unspecified; G40.909 Epilepsy, unspecified, not intractable, without status epilepticus; I42.9 Cardiomyopathy, unspecified; M06.9 Rheumatoid arthritis, unspecified; M79.7 Fibromyalgia; E03.9 Hypothyroidism, unspecified; K21.9 Gastro-esophageal reflux disease without esophagitis; E66.9 Obesity, unspecified; Z68.42 Body mass index [BMI] 45.0-49.9, adult; Z79.02 Long term (current) use of antithrombotics/antiplatelets; Z79.4 Long term (current) use of insulin; Z79.899 Other long term (current) drug therapy; Z89.421 Acquired absence of other right toe(s)
CPT/HCPCS: 11042

== ENCOUNTER 2021-07-19 13:45 | Outpatient (RCR) | payer MEDICARE, MEDICAID, SELFPAY ==
[2021-07-19 00:34] VITALS: BP 148/60; PULSE 85; RESP 18; TEMP 36; BMI 46.6
[2021-07-19 13:45] VITALS: BP 125/60; PULSE 93; RESP 18; TEMP 36.1; BMI 46.6
--- NOTE | 2021-07-19 14:23 | PCM.WC.PN ---
History of Present Illness Date of Service: 07/19/21 Chief Complaint: Ulcer left third and fourth toes ulcer right foot History of Wound: This 65-year-old female with significant past medical history of diabetes, hypothyroidism, rheumatoid arthritis, CKD, CHF, cardiomyopathy, fibromyalgia, GERD, seizure disorder, depression, history of iron deficiency anemia, and hypertension and obesity presents for evaluation of toe ulcers. She relates the onset has been at least since December 2020. Patient currently denies any feelings of nausea, vomiting, fever, chills. Her left foot feels better with the surgical shoe adjustment. she uses a walker. She does have rheumatoid arthritis and follows with a life insurance sales. She is not taking any steroids. She is taking Plaquenil which should not affect healing. She also continues to take Plavix. Progress of Wound: improving left worse periwound right Objective Data Objective Data Vital Signs: Vital Signs Temp Pulse Resp BP 97 F L 93 18 125/60 H 07/19/21 13:45 07/19/21 13:45 07/19/21 13:45 07/19/21 13:45 Oxygen Delivery Method Room Air Weight: 131.088 kg Body Mass Index (BMI) 46.6 Physical Exam Extremity Extremity Narrative: No calf tenderness Diminished pulses Muscle wasting noted Significant foot deformities consistent with rheumatoid arthritis. She has lateral hallux deviation with very prominent medial eminence of the first metatarsal head consistent with a hallux valgus. She has dorsal contraction of lesser toes with a right second toe amputation noted. The lesser toes are also overriding each other in particular the right third toe is superior to the fourth toe. Right foot has a pronounced hallux valgus deformity with prior second toe amputation. The hallux is deviated in a fibular manner and fills the entire space with the second toe was previously located. There is dorsal contraction fibular deviation of the lesser toes on the right foot No bogginess or fluctuance Compartments remain soft to palpate bilateral lower extremities Skin Skin Narrative: no purulence, no streaking, no odor, no infection. Superficial granulation tissue noted. No exposed bone or joint. No necrosis. No interdigital maceration. Skin discontinuity left third dorsal toe adjacent to the proximal interphalangeal joint that is nonreducible and a dorsally contracted position consistent with a hammertoe and now reduced fibrous tissue. skin discontinuity to distal plantar left fourth toe; resolved erythema. There is resolution of erythema to the third and fourth toes without bogginess or fluctuance or proximal streaking. There is no necrosis or deep tissue exposed. skin discontinuity to the dorsal lateral hallux and also in the interspace with granular base and no deep tissue exposure or infection or purulence. There is more periulcer inflammation and some mild maceration without purulence deep tissue exposure eschar Debridement Note Debridement Note Wound debrided: Right foot, left third and fourth toes Wound Grade/Stage: 1 Type of Debridement: Excisional debridement Anesthesia Used: 4% Lidocaine Solution Depth: in the subcutaneous layer Percentage of wound debrided: 100 Instrument Used: #15 blade Tissue Removed: fibrous, devitalized subcutaneous, biofilm, slough Severity: Fat Layer Exposed Amount of bleeding with debridement: Mild Bleeding Controlled with: Pressure Patient tolerated procedure: Patient tolerated procedure well Post-Debridement Measurements and Additional Note: Post-Debridement Measurements/Treatment WC - Nurse 1 - General Ulcer Assessment Start: 07/19/21 13:45 Freq: Status: Active Protocol: WILLY Activity Type Activity Date Activity User E-Sign Co-Sign Detail Recorded Client Recorded Date Recorded By Document 07/19/21 13:45 [facility] [id number] 07/19/21 13:54 [facility] 07/19/21 13:45 - Today's Visit Information Type of service Follow-up Visit (Physician/[employer] ) Arrival Mode Ambulatory,Cane Transfer Assistance None Patient Identification Verified (Name & Yes ) Patient Requires Transmission-Based No Precautions Height and Weight Body Mass Index (BMI) 46.6 BMI Classification Obese Vital Signs Temperature (97.8 F-99.1 F) 97 F L Temperature Source Temporal Pulse Rate (60-100) 93 Pulse Location Monitor Respiratory Rate (12-18) 18 Respiratory rate source Observation Oxygen Delivery Method Room Air Blood Pressure (90/60-120/80) 125/60 H Blood Pressure Mean (mm Hg) 81 Source Monitor Position Sitting Blood Pressure Location Left Arm History Since Last Visit- (Skip if this is Patient's initial visit) Have you changed medications since your No last visit? Any new allergies or adverse reactions No Had a fall/change in ADL's that may No increase risk of falls Signs or symptoms of abuse and/or No neglect since last visit Have you been in the hospital since your No last visit? Has dressing in place as prescribed Yes Has compression in place as prescribed N/A Has offloadiing in place as prescribed Yes Experienced any changes in pain level or No management Left Footwear Surgical Shoe with pressure relief insole Right Footwear Surgical Shoe with pressure relief insole Pain Scale: 0-10 Numeric Is Patient Pain Free? Yes WC - Nurse 1 - General Ulcer Measurement Start: 07/19/21 13:45 Freq: Status: Active Protocol: Activity Type Activity Date Activity User E-Sign Co-Sign Detail Recorded Client Recorded Date Recorded By Document 07/19/21 13:45 [facility] [id number] 07/19/21 13:54 [facility] 07/19/21 13:45 Wound Center Nurse 1 #5 Right Dorsal Hallux cluster -Combined with other wound No -Current Size (cm) - Length 1.1 -Current Size (cm) - Width 1.3 -Current Size (cm) - Depth 0.4 -Total Square Cm 1.43 -Photo Taken No -Epithelialization None Present -Tunneling No -Undermining/Tunneling No -Circular Undermining No -Exudate Amt Medium -Exudate Type Serosanguineous -Wound Margin Distinct, Outline Attached -Granulation Amt Medium (34-66%) -Granulation Quality [place] -Slough/Fibrin Yes -Necrosis Amt Medium (34-66%) -Necrotic Tissue Type Adherent Slough -Texture (Huma-wound Skin Appearance) Assessed -Moisture (Huma-wound Skin Appearance) Assessed, Maceration -Color (Huma-wound Skin Appearance) Assessed, Erythema,Palor -Temperature (Huma-wound Skin No Abnormality Appearance) (Pt Warm) -Tenderness on Palpation (Huma-wound No Skin Appearance) -Ulcer Cleansing Soap and Water -Foul Odor after Cleansing No -Anesthetic Used 5% Lidocaine Gel #4- L 4TH TOE -Combined with other wound No -Current Size (cm) - Length 0.1 -Current Size (cm) - Width 0.1 -Current Size (cm) - Depth 0.1 -Total Square Cm 0.01 -Epithelialization Large 67-100% -Texture (Huma-wound Skin Appearance) Assessed,Callus ,Localized Edema -Moisture (Huma-wound Skin Appearance) Assessed,Dry/ Scaly -Color (Huma-wound Skin Appearance) Assessed, Erythema -Temperature (Huma-wound Skin No Abnormality Appearance) (Pt Warm) -Tenderness on Palpation (Huma-wound No Skin Appearance) -Ulcer Cleansing Soap and Water -Foul Odor after Cleansing No -Anesthetic Used 5% Lidocaine Gel #2- L 3RD TOE -Combined with other wound No -Current Size (cm) - Length 0.5 -Current Size (cm) - Width 0.7 -Current Size (cm) - Depth 0.4 -Total Square Cm 0.35 -Photo Taken No -Epithelialization None Present -Tunneling No -Undermining/Tunneling No -Circular Undermining No -Exudate Amt Medium -Exudate Type Serosanguineous -Wound Margin Distinct, Outline Attached -Granulation Amt Small (1-33%) -Granulation Quality Red -Slough/Fibrin Yes -Necrosis Amt Large (67-100%) -Necrotic Tissue Type Adherent Slough -Texture (Huma-wound Skin Appearance) Assessed, Localized Edema ,Scarring -Moisture (Huma-wound Skin Appearance) Assessed -Color (Huma-wound Skin Appearance) Assessed, Erythema -Temperature (Huma-wound Skin No Abnormality Appearance) (Pt Warm) -Tenderness on Palpation (Huma-wound No Skin Appearance) -Ulcer Cleansing Soap and Water -Foul Odor after Cleansing No -Anesthetic Used 5% Lidocaine Gel WC - Nurse 2 - General Ulcer CM Notes Start: 07/19/21 13:45 Freq: Status: Active Protocol: Activity Type Activity Date Activity User E-Sign Co-Sign Detail Recorded Client Recorded Date Recorded By Document 07/19/21 14:04 [id number] 07/19/21 14:12 [email or web address] 07/19/21 14:04 Wound Center Nurse 2 #5 Right Dorsal Hallux cluster -Time 14:07 -Correct Patient Yes -Correct Side, Site, Position Yes -Correct Procedure Yes -Procedure Performed Yes -Type of Procedure Debridement -Clinical Debridement Subcutaneous -Tissue Removed Subcutaneous -Post Debridement (cm) - Length 1.0 -Post Debridement (cm) - Width 0.8 -Post Debridement (cm) - Depth 0.2 -Total Square (Post) (cm) 0.80 -Area of Debridement (cm) - Length 1.0 -Area of Debridement (cm) - Width 0.8 -Total Square (Area) (cm) 0.80 -Tunneling No -Undermining/Tunneling No -Circular Undermining No -Wound/Ulcer Outcome Not Healed -Ulcer Cleansing Rinsed/ Irrigated with Saline -Foul Odor after Cleansing No -Bioengineered Tissue No -Bleeding Controlled with Pressure -Offloading Yes -Type of Offloading Surgical Shoe -Treatment Response Procedure Tolerated Well -Debridement - Subq, 1st 20sq cm No #4- L 4TH TOE -Time 14:06 -Correct Patient Yes -Correct Side, Site, Position Yes -Correct Procedure Yes -Procedure Performed Yes -Type of Procedure Debridement -Clinical Debridement Subcutaneous -Tissue Removed Subcutaneous -Post Debridement (cm) - Length 0.4 -Post Debridement (cm) - Width 0.7 -Post Debridement (cm) - Depth 0.2 -Total Square (Post) (cm) 0.28 -Area of Debridement (cm) - Length 0.4 -Area of Debridement (cm) - Width 0.7 -Total Square (Area) (cm) 0.28 -Tunneling No -Undermining/Tunneling No -Circular Undermining No -Wound/Ulcer Outcome Not Healed -Ulcer Cleansing Rinsed/ Irrigated with Saline -Foul Odor after Cleansing No -Bioengineered Tissue No -Bleeding Controlled with Pressure -Offloading Yes -Type of Offloading Surgical Shoe -Treatment Response Procedure Tolerated Well -Debridement - Subq, 1st 20sq cm No #2- L 3RD TOE -Time 14:06 -Correct Patient Yes -Correct Side, Site, Position Yes -Correct Procedure Yes -Procedure Performed Yes -Type of Procedure Debridement -Clinical Debridement Subcutaneous -Tissue Removed Subcutaneous -Post Debridement (cm) - Length 0.5 -Post Debridement (cm) - Width 0.8 -Post Debridement (cm) - Depth 0.5 -Total Square (Post) (cm) 0.40 -Area of Debridement (cm) - Length 0.5 -Area of Debridement (cm) - Width 0.8 -Total Square (Area) (cm) 0.40 -Tunneling No -Undermining/Tunneling No -Circular Undermining No -Wound/Ulcer Outcome Not Healed -Ulcer Cleansing Rinsed/ Irrigated with Saline -Foul Odor after Cleansing No -Bioengineered Tissue No -Bleeding Controlled with Pressure -Offloading Yes -Type of Offloading Surgical Shoe -Treatment Response Procedure Tolerated Well -Debridement - Subq, 1st 20sq cm Yes Pain Scale: 0-10 Numeric Is Patient Pain Free? Yes Assessment/Plan Assessment/Plan (1) Type 2 diabetes mellitus with diabetic polyneuropathy: CODE(S): E11.42 - Type 2 diabetes mellitus with diabetic polyneuropathy QUALIFIERS: Diabetes mellitus exterminator helper insulin use: with chcf use Qualified Code(s): E11.42 - Type 2 diabetes mellitus with diabetic polyneuropathy; Z79.4 - halfway (current) use of insulin (2) Rheumatoid arthritis: CODE(S): M06.9 - Rheumatoid arthritis, unspecified (3) Hammer toe of left foot: CODE(S): M20.42 - Other hammer toe(s) (acquired), left foot (4) Ulcer of left foot with fat layer exposed: CODE(S): L97.522 - Non-pressure chronic ulcer of other part of left foot with fat layer exposed (5) Other specified peripheral vascular diseases: CODE(S): I73.89 - Other specified peripheral vascular diseases (6) Venous insufficiency (chronic) (peripheral): CODE(S): I87.2 - Venous insufficiency (chronic) (peripheral) (7) Localized edema: CODE(S): R60.0 - Localized edema (8) Cellulitis of left lower limb: CODE(S): L03.116 - Cellulitis of left lower limb (9) Chronic ulcer of great toe of right foot with fat layer exposed: CODE(S): L97.512 - Non-pressure chronic ulcer of other part of right foot with fat layer exposed (10) Tinea unguium: CODE(S): B35.1 - Tinea unguium PLAN: I reviewed and discussed her case today. Debridement was performed today as noted in the clinical panel to all of the ulcer sites. The following work up and care recommendations were made: Dressing: To change daily with Aquacel Ag Wash: Antibacterial soap and water Offload: Bilateral surgical shoes are noted. To bear weight on right heel. Her left foot surgical shoe was adjusted again today in which the distal end of the straps were completely excised to avoid any contact with her toes. It appears her Plastizote liner slipped distal and that shoes and this was really secured. I also recommend additional spacer into the first interspace on the right foot where the ulcer is. This can be achieved by the use of a gauze bolster. Vascular: She does have palpable pulses however I am concerned about the amount of time is taking to heal these ulcers. I reviewed and discussed her noninvasive vascular studies. She appears to have good triphasic waveforms and normal ankle-brachial indices. The toe brachial index was slightly reduced on the left foot with a value of 0.54. This is consistent with mild small vessel occlusive disease. We will continue to monitor her healing and a vascular referral be considered if she has ongoing delays however overall her studies look decent. Edema: Tubigrip or Basil wraps are recommended. To elevate at rest. To perform hourly muscle contraction while awake. She does have varicosities and edema and I recommend a venous Doppler with reflux evaluation. Infection: I am concerned of bacterial contamination versus infection of the right foot due to deteriorated periwound. A culture was obtained and sent for aerobic, anaerobic, MRSA PCR. There was also be followed and I will call her within a couple of days to make an antibiotic recommendation and to follow-up on her status. Pain: Controlled Host factors: She has multiple comorbidities that may contribute to delayed healing. I advised her to avoid prednisone; she is not using this. To continue follow-up with life insurance sales and primary care physician in regards to diabetes management. Improvement nutritional status is walker recommended to optimize healing. To continue Plavix. Diagnostic data: I would like to check her last A1c and update her lab work. An order was provided for lab testing including CBC, CMP, ESR, C-reactive protein. This was reviewed from 06-14-21 with a white blood cell count of 12.4, ESR 50, C-reactive protein of 32.2, albumin 2.8. Her A1c was 7.7%. It is noted she also has reduced kidney function with a GFR of 40 and a creatinine of 1.41. I answered all the patient's questions. To return to the wound healing center in 1 week or call sooner if the patient has any questions or concerns.
[2021-07-20 15:39] LABS: M R Staph aureus DNA By PCR Negative (Negative); Probe Check PASS; Specimen Processing Control PASS; Staph aureus DNA By PCR POSITIVE (Negative)
== END 2021-08-18 23:59 ==
LOC: WC 13:45
PROVIDERS: PCP Family Medicine; Visit Provider Podiatrist
DX: E11.621 Type 2 diabetes mellitus with foot ulcer (principal); L97.512 Non-pressure chronic ulcer of other part of right foot with fat layer exposed; L97.522 Non-pressure chronic ulcer of other part of left foot with fat layer exposed; I87.2 Venous insufficiency (chronic) (peripheral); E11.51 Type 2 diabetes mellitus with diabetic peripheral angiopathy without gangrene; E11.42 Type 2 diabetes mellitus with diabetic polyneuropathy; L03.116 Cellulitis of left lower limb; R60.0 Localized edema; B35.1 Tinea unguium; I13.0 Hypertensive heart and chronic kidney disease with heart failure and stage 1 through stage 4 chronic kidney disease, or unspecified chronic kidney disease; I50.9 Heart failure, unspecified; E11.22 Type 2 diabetes mellitus with diabetic chronic kidney disease; N18.9 Chronic kidney disease, unspecified; I42.9 Cardiomyopathy, unspecified; G40.909 Epilepsy, unspecified, not intractable, without status epilepticus; M20.42 Other hammer toe(s) (acquired), left foot; M06.9 Rheumatoid arthritis, unspecified; E03.9 Hypothyroidism, unspecified; M79.7 Fibromyalgia; K21.9 Gastro-esophageal reflux disease without esophagitis; F32.A Depression, unspecified; E66.9 Obesity, unspecified; Z68.42 Body mass index [BMI] 45.0-49.9, adult; Z79.4 Long term (current) use of insulin; Z79.02 Long term (current) use of antithrombotics/antiplatelets
CPT/HCPCS: 11042; 87070; 87075; 87077; 87186; 87205; 87640

== ENCOUNTER 2021-07-28 18:28 | Emergency (ER) | payer MEDICARE, MEDICAID, SELFPAY ==
[2021-07-28 18:32] VITALS: BP 123/75; PULSE 89; RESP 18; TEMP 36.6; O2SAT 98; BMI 48.4
--- NOTE | 2021-07-28 19:19 | RAD_ITS ---
STUDY: XR Chest 1 View 07/28/2021 7:19 PM REASON FOR EXAM: Female, 65 years old. CHEST PAIN COUGH COMPARISON: 01/17/2021 TECHNIQUE: XR Chest 1 View FINDINGS: There is no demonstrated pleural abnormality. Enlarged heart size. Normal mediastinum. Normal judith. Prominent appearing increased interstitial lung markings. Normal visualized pulmonary arteries. There is atherosclerotic calcification of the aortic arch with tortuosity. There are diffuse degenerative changes of the visualized thoracic spine. There is degenerative osteoarthritis of the bilateral shoulders. There is no demonstrated abnormality of the visualized soft tissue structures of the upper abdomen. RAD/Chest 1 View (Portable) IMPRESSION: There are no acute findings. Electronically Signed: Ok Pandey MD at 19:47 EST , Service support ,
[2021-07-28 19:20] VITALS: O2SAT 93
--- NOTE | 2021-07-28 19:27 | EKG12_ITS ---
Test Reason : DYSRHYTHMIA Blood Pressure : / mmHG Vent. Rate : 092 BPM Atrial Rate : 092 BPM P-R Int : 158 ms QRS Dur : 088 ms QT Int : 382 ms P-R-T Axes : 025 -34 029 degrees QTc Int : 472 ms Normal sinus rhythm Left axis deviation Abnormal ECG Confirmed by ABIMAEL CURRY, CAROLE ([id number]), associate entertainment editor VIDAL MCDERMOTT ([id number]) on 07/31/2021 10:08:02 AM Referred By: HIEU Confirmed By:CAROLE VARGHESE MD
--- NOTE | 2021-07-28 19:28 | EDS_ITS ---
HPI HPI - URI History of Present Illness Chief Complaint: Shortness of Breath Detail of Chief Complaint: Cough shortness of breath x6 days Informant: patient Narrative Narrative: Patient presents to the emergency department complaint of cough and shortness of breath for the last 6 days. Patient cough is mostly nonproductive. Patient has had her Covid vaccine and influenza vaccine as well. Patient states that her doctor wanted her to have a Covid test. 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 Patient denies any chest pain. She has had low-grade fever at home up to 100.0. Patient is a diabetic. She is not on anticoagulation. ROS ROS ED Constitutional Constitutional ED: Reports systems reviewed and no addt'l complaints, except as documented and fever(s); Denies body ache(s), change in weight or chills Eyes Eyes: Denies acute decrease in peripheral vision, change in vision, double vision or loss of vision ENT ENT ED: Reports none; Denies ear pain, lip swelling, loss taste/smell, neck pain, otalgia or sore throat Cardiovascular Cardiovascular: Reports none; Denies abdominal pain, chest pain with activity, leg edema, lightheadedness, palpitations, rapid heart rate or syncope Respiratory/Chest Respiratory/Chest: Reports none, cough and dyspnea; Denies change in mental status, dry cough, hemoptysis, shortness of breath at rest or shortness of breath with exertion Gastrointestinal Gastrointestinal: Reports none; Denies abdominal pain, change in stool character, diarrhea, hematemesis, hematochezia, melena, rectal bleeding or vomiting Genitourinary Genitourinary ED: Reports none; Denies abdominal discomfort, anuria, dysuria, g enital pain or polyuria Musculoskeletal Musculoskeletal: Reports none; Denies arthralgias, back pain, difficulty walking, extremity pain, muscle weakness or myalgias Integumentary Reports none; Denies abscess or rash Neurologic Neurologic: Reports none; Denies abnormal gait, confusion, focal weakness, frequent falls, headache(s), loss of vision, numbness, paresthesias, radicular pain, vertigo or weakness Psychiatric Psychiatric: Reports systems reviewed and no addt'l complaints, except as documented and none; Denies behavioral changes, confusion, difficulty concentrating, hallucinations, suicidal ideation, tactile hallucinations or visual hallucinations Endocrine Endocrinology: Denies none, cold intolerance, excessive sweating, fatigue or heat intolerance Hematologic/Lymphatic Hematologic/Lymphatic: Reports none; Denies anemia, easy bleeding or easy brui sing Allergic/Immunologic Allergic/Immunologic ED: Denies as per HPI, none, lip swelling, mouth swelling, throat swelling, tongue swelling or hives PFSH PFS Medical History Abdominal pain Benign essential HTN Candidiasis of breast Chronic pain syndrome Depression Diabetic gastroparesis Diabetic gastroparesis Diabetic infection of right foot Diverticulitis Dysphagia Fibromyalgia Fibromyalgia GERD (gastroesophageal reflux disease) Gout Hammer toe of left foot Hammer toe of right foot History of CVA (cerebrovascular accident) HLD (hyperlipidemia) Hypothyroidism Iron deficiency anemia Morbid obesity with BMI of 40.0-44.9, adult NSTEMI (non-ST elevated myocardial infarction) QIAN (obstructive sleep apnea) Paroxysmal atrial fibrillation Restless leg syndrome Rheumatoid arthritis Seizure disorder Sepsis Takotsubo cardiomyopathy Takotsubo cardiomyopathy Thyroid disease Toe osteomyelitis, right Type 2 diabetes mellitus 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 2 diabetes mellitus with diabetic polyneuropathy Ulcer of right foot Ulcer of right foot with fat layer exposed UTI (urinary tract infection) Home Medications hydroxychloroquine 200 mg PO BIDCM 11/30/18 [History Last Taken 01/17/21] allopurinol 100 mg tablet 100 mg PO DAILY tab 03/30/19 [History Last Taken 01/17/21 08:00] atorvastatin 20 mg PO QHS 01/17/21 [History Last Taken 01/16/21] duloxetine 60 mg PO DAILY 01/17/21 [History Last Taken 01/17/21] labetalol 100 mg PO BID 01/17/21 [History Last Taken 01/17/21] minoxidil 2.5 mg PO DAILY 01/17/21 [History Last Taken 01/17/21] haloperidol lactate 2 mg/mL oral concentrate 0.5 mg PO TID PRN ml 03/22/21 [History Last Taken Unknown] levothyroxine 75 mcg tablet 88 mcg PO DAILY tab 03/22/21 [History Last Taken Unknown] mirtazapine 15 mg tablet 15 mg PO DAILY 03/22/21 [History Last Taken Unknown] pantoprazole 40 mg tablet,delayed release 40 mg PO DAILY 03/22/21 [History Last Taken Unknown] ropinirole 1 mg tablet 1 mg PO DAILY 03/22/21 [History Last Taken Unknown] thiamine HCl (vitamin B1) 100 mg tablet 100 mg PO DAILY 03/22/21 [History Last Taken Unknown] carboxymethylcellulose sodium 1 % eye drops 1 drp OPHTHALMIC (EYE) TID 05/25/21 [History Last Taken Unknown] duloxetine 30 mg capsule,delayed release 30 mg PO DAILY 05/25/21 [History Last Taken Unknown] flash glucose scanning reader #1 ea 05/25/21 [Rx Last Taken Unknown] flash glucose sensor #2 ea 05/25/21 [Rx Last Taken Unknown] polyethylene glycol 3350 17 gram/dose oral powder 17 g PO DAILY 05/25/21 [History Last Taken Unknown] potassium chloride 20 mEq tablet,extended release 20 meq PO TID 05/25/21 [History Last Taken Unknown] sennosides 8.6 mg-docusate sodium 50 mg tablet 1 tab-cap PO QHS PRN 05/25/21 [History Last Taken Unknown] acetaminophen [Acetaminophen Extra Strength] 1,000 mg PO Q6H PRN 05/31/21 [History Last Taken Unknown] albuterol sulfate 2 puff INHALATION Q4H PRN 05/31/21 [History Last Taken Unknown] hydrocodone-acetaminophen 5-325mg 5mg-325mg 1 tab PO QHS PRN 06/08/21 [History Last Taken Unknown] pregabalin 150 mg capsule 150 mg PO BID 06/08/21 [History Last Taken Unknown] amoxicillin-pot clavulanate [Augmentin] 1 tab PO BID #20 tab 06/14/21 [Rx Last Taken Unknown] Lantus Solostar U-100 Insulin 100 unit/mL (3 mL) subcutaneous pen 60 unit SUBCUT DAILY #54 ml NS 06/22/21 [Rx Last Taken Unknown] glimepiride 4 mg tablet 4 mg PO BID #180 tab 06/22/21 [Rx Last Taken Unknown] insulin lispro 100 unit/mL subcutaneous pen 35 unit SUBCUT .TIDCM #94.5 ml 06/22/21 [Rx Last Taken Unknown] amoxicillin-pot clavulanate [Augmentin] 1 tab PO BID #14 tab 07/21/21 [Rx Last Taken Unknown] Allergy/AdvReac Type Severity Reaction Status Date / Time ciprofloxacin [From Cipro] Allergy short of Verified 07/28/21 18:31 breath cyclobenzaprine Allergy rash Verified 07/28/21 18:31 levofloxacin [From Levaquin] Allergy PT UNSURE Verified 07/28/21 18:31 OF REACTION sulfamethoxazole Allergy itch Verified 07/28/21 18:31 topiramate Allergy PT UNSURE Verified 07/28/21 18:31 OF REACTION trimethoprim Allergy itch Verified 07/28/21 18:31 valacyclovir [From Valtrex] Allergy pt unsure Verified 07/28/21 18:31 ketorolac [From Toradol] AdvReac Other Verified 07/28/21 18:31 Family History Mother Myocardial infarction Asthma Diabetes Father Congestive heart failure Other Heart disease Surgical History history left foot surgery History of cholecystectomy History of knee surgery History of left heart catheterization (03/09/19) Social History household members: none housing: intermediate Smoking Status: Never smoker alcohol intake: never substance use type: does not use EXAM Physical Exam Const Vital Signs: 07/28/21 18:32 07/28/21 19:20 07/28/21 21:53 Temperature 97.9 F Temperature Source Temporal Pulse Rate 89 84 Respiratory Rate 18 14 Respiratory Effort Short of Breath Respiratory Depth Normal Respiratory Pattern Normal Blood Pressure 123/75 H 161/70 H Blood Pressure Mean 91 100 Pulse Ox 98 93 96 Oxygen Delivery Method Nasal Cannula Room Air Nasal Cannula Oxygen Flow Rate (L/min) 2 2 Positive well nourished and well developed General Appearance ED: well developed and NAD HEENT Reports TM's clear and moist mucous membranes normocephalic and atraumatic; Negative for trauma or tenderness Tympanic Membrane ED: Yes TM's clear Eyes PERRL and EOMs intact bilaterally General Eye ED: Negative for pale conjunctiva or scleral icterus Neck no lymphadenopathy, supple and no JVD General: Negative for tenderness Chest Wall inspection of chest normal and palpation of chest normal Chest: Negative for tenderness Resp normal respiratory effort and clear to auscultation bilaterally Effort and Inspection: Negative for respiratory distress or pain with movement Auscultation: Negative for rhonchi, wheezes or diminished lung sounds Cardio regular rate, regular rhythm, S1 normal heart sound, S2 normal heart sound and no murmurs Peripheral Pulses: pulses 2+ throughout GI normal to inspection, nondistended, normoactive bowel sounds, soft to palpation, non-tender, non-distended and no masses Back/Spine no CVA tenderness and no thoracic nor lumbar tenderness Extremity normal to inspection General Extremety ED: Negative for edema General Extremity: Negative for edema Neuro oriented x3, CN's II-XII intact bilaterally, no sensory deficits noted and gait normal Sensorium / Orientation: awake, alert, oriented to person, oriented to place and oriented to time Motor Exam: strength 5/5 throughout and strength abnormal Psych mental status grossly normal Skin no rashes or lesions noted and no wounds MDM MDM MDM Narrative Medical decision making narrative: IV line established on arrival. Patient ambulated in room and did not drop her O2 sat lower than 92%. I feel patient can be discharged to home given that she has no evidence of PE and is not hypoxic. Patient advised to monitor her oxygen saturation at home. Patient to return if increasing shortness of breath or condition worsen anyway. I did refer her for monoclonal infusion. She understands that she will be day 10 on Saturday which is in 3 days and that will be her first opportunity to receive this treatment. Lab Data Attestation: I reviewed the patient's lab results. Labs: Laboratory Results - last 24 hr 07/28/21 07/28/21 07/28/21 19:50 19:50 19:50 WBC 7.6 RBC 4.24 Hgb 11.1 L Hct 34.7 L MCV 81.8 MCH 26.2 L MCHC 32.0 RDW Std Deviation 42.6 RDW Coeff of Be 14.4 Plt Count 267 MPV 9.5 Immature Gran % (Auto) 0.500 Neut % (Auto) 77.9 H Lymph % (Auto) 9.7 L [place] % (Auto) 8.9 Eos % (Auto) 2.6 Baso % (Auto) 0.4 Absolute Neuts (auto) 5.9 Absolute Lymphs (auto) 0.74 L Nucleated RBC % 0 D-Dimer Quant (PE/DVT) 1.45 H* Sodium 132 L Potassium 4.4 Chloride 99 Carbon Dioxide 25.0 Anion Gap 8 BUN 10 Creatinine 1.10 H Estim Creat Clear Calc 47.10 Est GFR (MDRD) Af Amer 64 Est GFR (MDRD) Non-Af 53 L BUN/Creatinine Ratio 9.1 L Glucose 290 H Lactic Acid Calcium 8.4 L Troponin I High Sens 8 07/28/21 19:50 WBC RBC Hgb Hct MCV MCH MCHC RDW Std Deviation RDW Coeff of Be Plt Count MPV Immature Gran % (Auto) Neut % (Auto) Lymph % (Auto) [place] % (Auto) Eos % (Auto) Baso % (Auto) Absolute Neuts (auto) Absolute Lymphs (auto) Nucleated RBC % D-Dimer Quant (PE/DVT) Sodium Potassium Chloride Carbon Dioxide Anion Gap BUN Creatinine Estim Creat Clear Calc Est GFR (MDRD) Af Amer Est GFR (MDRD) Non-Af BUN/Creatinine Ratio Glucose Lactic Acid 1.0 Calcium Troponin I High Sens Radiography Diagnostic Testing: Clinical Impression(s) from Imaging Studies Chest X-Ray 07/28/21 19:19 IMPRESSION: There are no acute findings. Electronically Signed: Ok Pandey MD at 19:47 EST , Service support , Chest CTA 07/28/21 20:52 IMPRESSION: 1. No demonstrated pulmonary embolism or arterial dissection. 2. There is bilateral pneumonia. Electronically Signed: Ok Pandey MD at 21:33 EST , Service support , 1 view chest x-ray obtained interpreted by myself as no acute disease process. Radiology in agreement. EKG Initial EKG: Attestation: I personally reviewed and interpreted this EKG as follows: Comments: Sinus rhythm with a ventricular rate of 92 bpm with no acute ST segment changes. Discharge Plan Triage Chief Complaint: Shortness of Breath ED Provider: Robe Root Dx/Rx/DC Orders Clinical Impression: COVID-19 Instructions: Caring for Someone Who Has COVID-19 Prescriptions: No Action pregabalin [Lyrica] 150 mg capsule 150 mg PO BID RF: 0 hydrocodone-acetaminophen 5-325 mg tablet 1 tab PO QHS PRNRF: 0 pantoprazole 40 mg tablet,delayed release (DR/EC) 40 mg PO DAILY RF: 0 mirtazapine 15 mg tablet 15 mg PO DAILY RF: 0 ropinirole 1 mg tablet 1 mg PO DAILY RF: 0 thiamine HCl (vitamin B1) 100 mg tablet 100 mg PO DAILY RF: 0 haloperidol lactate 2 mg/mL concentrate 0.5 mg PO TID PRN (Reason: Nausea) RF: 0 Artificial Tears (cmc) 1 % drops 1 drp ophthalmic (eye) TID RF: 0 duloxetine [Cymbalta] 30 mg capsule,delayed release(DR/EC) 30 mg PO DAILY RF: 0 polyethylene glycol 3350 [Miralax] 17 gram/dose powder 17 g PO DAILY RF: 0 potassium chloride 20 mEq tablet extended release 20 meq PO TID RF: 0 sennosides-docusate sodium [Senexon-S] 8.6-50 mg tablet 1 tab-cap PO QHS PRN (Reason: Constipation) RF: 0 (DME) FreeStyle Gavin 2 Sensor Kit See Rx Instructions .ROUTE .MEDSUPPLY Qty: 2 RF: 6 (DME) FreeStyle Gavin 2 [place] Misc See Rx Instructions .ROUTE .MEDSUPPLY Qty: 1 RF: 0 glimepiride 4 mg tablet 4 mg PO BID Qty: 180 RF: 3 insulin lispro 100 unit/mL insulin pen 35 unit subcut .TIDCM Qty: 94.5 RF: 3 Lantus Solostar U-100 Insulin 100 unit/mL (3 mL) insulin pen 60 unit subcut DAILY Qty: 54 RF: 3 allopurinol 100 mg tablet 100 mg PO DAILY RF: 0 levothyroxine 75 mcg tablet 88 mcg PO DAILY RF: 0 hydroxychloroquine 200 MG tablet 200 mg PO BIDCM RF: 0 atorvastatin 20 mg Tablet 20 mg PO QHS RF: 0 minoxidil 2.5 mg Tablet 2.5 mg PO DAILY RF: 0 labetalol 100 mg Tablet 100 mg PO BID RF: 0 duloxetine 60 mg Capsule,Delayed Release(Dr/Ec) 60 mg PO DAILY RF: 0 acetaminophen [Acetaminophen Extra Strength] 500 mg Tablet 1,000 mg PO Q6H PRN (Reason: Pain) RF: 0 albuterol sulfate 90 mcg/actuation Hfa Aerosol Inhaler 2 puff INHALATION Q4H PRN (Reason: Wheezing) RF: 0 amoxicillin-pot clavulanate [Augmentin] 875-125 mg tablet 1 tab PO BID Qty: 20 RF: 0 amoxicillin-pot clavulanate [Augmentin] 500-125 mg tablet 1 tab PO BID Qty: 14 RF: 0 Other Ambulatory Orders: COVID Outpatient Monoclonal Antibody Referral (Routine) Timeframe: 1 Day Facility: [facility] - Location: [facility] Ordered By: Dr. Robe Root Primary Care Provider: Devan Parks Referrals: Devan Parks MD [Primary Care Provider] - 5-7 Days Disposition Disposition: Home, Self Care
[2021-07-28] MEDS: 0.9% Normal Saline 1,000 ML 150 ML IV (20:24)
[2021-07-28 20:27] LABS: Absolute Lymphocyte Count 0.74 X10^3/uL (0.83-4.51); Absolute Neutrophil Count 5.9 X10^3/uL (2.0-7.7); Basophil# 0.03 X10^3/uL; Basophil% 0.4 % (0-1); Eosinophils% 2.6 % (0-5); Hematocrit 34.7 % (37-47); Hemoglobin 11.1 g/dL (12.0-15.0); Lymphocyte # 0.74 X10^3/ul (0.83-4.51); Lymphocyte % 9.7 % (19-41); Mean Corpuscular Hgb 26.2 pg (27.0-32.0); Mean Corpuscular Volume 81.8 fL (81-99); Mean Platelet Vol. 9.5 fl (6.2-12.0); Monocyte# 0.68 X10^3/uL; Monocyte% 8.9 % (0-10); NRBC Flagged by Analyzer 0 % (0-5); Neutrophil # 5.91 X10^3/uL (2.7-7.7); Neutrophil % 77.9 % (47-70); Platelet Count 267 K/mm3 (150-450); RBC Distribution Width CV 14.4 % (11.6-14.6); RBC Distribution Width SD 42.6 fl (35.1-43.9); Red Blood Count 4.24 M/mm3 (4.2-5.4); White Blood Count 7.6 K/mm3 (4.4-11.0)
[2021-07-28 20:34] LABS: Anion Gap 8 (5-15); BUN 10 mg/dL (7-18); BUN/Creat Ratio 9.1 RATIO (10-20); Calcium,Total 8.4 mg/dL (8.5-10.1); Chloride 99 mmol/L (98-107); EST Glomerular Filtration Rate 53 mL/min (>60); Est Glom Filt Rate - Afr Amer 64 mL/min (>60); Glucose 290 mg/dL (74-106); Potassium 4.4 mmol/L (3.5-5.1); Sodium Level 132 mmol/L (136-145); Troponin-I HS 8 pg/mL (3.0-54.0)
[2021-07-28 20:49] LABS: D-Dimer Quantitative (DVT/PE) 1.45 FEU/ug/m (0.27-0.49)
--- NOTE | 2021-07-28 20:52 | CT_ITS ---
EXAM: CT ANGIOGRAPHY CHEST WITHOUT AND WITH INTRAVENOUS CONTRAST CLINICAL INDICATION: elevated d-dimer TECHNIQUE: Helically acquired angiography images were obtained of the chest without and with intravenous contrast. This CT exam was performed using one or more of the following dose reduction techniques: automated exposure control, adjustment of the mA and/or kV according to patient size, and/or use of iterative reconstruction technique. This report was created using [employer] report generation technology. MIP reconstructed images were created and reviewed. CONTRAST: IV 100mL [id number] COMPARISON: None. FINDINGS: PULMONARY ARTERIES: No demonstrated pulmonary embolism or arterial dissection. AORTA: Unremarkable. Normal in caliber. No evidence of dissection. GREAT VESSELS OF AORTIC ARCH: Unremarkable. Normal in caliber. No evidence of dissection. LUNGS AND PLEURAL SPACES: There is bilateral pneumonia. Left upper lobe, right middle lobe, and left lower lobe infiltrates. No mass. No pleural effusion or thickening. HEART: Unremarkable. Heart size is normal. No pericardial effusion. No signs of right heart strain, ratio of right ventricle to left ventricle measures less than 1. MEDIASTINUM: Unremarkable. No mediastinal or hilar adenopathy. Esophagus is unremarkable. No hiatal hernia. THYROID: Unremarkable. No thyroid lesions. BONES/JOINTS: There are degenerative findings of the thoracic spine. No suspicious lytic or blastic abnormality. CT/CTA Chest W/WO Contrast IMPRESSION: 1. No demonstrated pulmonary embolism or arterial dissection. 2. There is bilateral pneumonia. Electronically Signed: Ok Pandey MD at 21:33 EST , Service support ,
[2021-07-28 20:56] VITALS: O2SAT 94
[2021-07-28 21:53] VITALS: BP 161/70; PULSE 84; RESP 14; O2SAT 96
[2021-07-28 22:55] VITALS: O2SAT 94
== END 2021-07-28 23:19 | disposition home or self-care (01) ==
PROVIDERS: Emergency Provider Emergency Medicine; PCP Family Medicine
DX: U07.1 COVID-19 (principal); E11.43 Type 2 diabetes mellitus with diabetic autonomic (poly)neuropathy; K31.84 Gastroparesis; E66.01 Morbid (severe) obesity due to excess calories; Z68.42 Body mass index [BMI] 45.0-49.9, adult; I10 Essential (primary) hypertension; G89.4 Chronic pain syndrome; F32.A Depression, unspecified; M79.7 Fibromyalgia; M10.9 Gout, unspecified; K21.9 Gastro-esophageal reflux disease without esophagitis; E78.5 Hyperlipidemia, unspecified; E03.9 Hypothyroidism, unspecified; I25.2 Old myocardial infarction; G47.33 Obstructive sleep apnea (adult) (pediatric); I48.0 Paroxysmal atrial fibrillation; G25.81 Restless legs syndrome; M06.9 Rheumatoid arthritis, unspecified; I51.81 Takotsubo syndrome; E11.42 Type 2 diabetes mellitus with diabetic polyneuropathy; G40.909 Epilepsy, unspecified, not intractable, without status epilepticus; Z86.73 Personal history of transient ischemic attack (TIA), and cerebral infarction without residual deficits; Z87.19 Personal history of other diseases of the digestive system; Z86.19 Personal history of other infectious and parasitic diseases; Z87.440 Personal history of urinary (tract) infections; Z79.4 Long term (current) use of insulin; Z79.899 Other long term (current) drug therapy
CPT/HCPCS: 71045; 71275; 80048; 83605; 84484; 85025; 85379; 87040; 87077; 87426; 87804; 93005; 94760; 96360; 96361; 99285; J7030; Q9967; A4216